=== PATIENT | female | born 1975 | race American Indian/Alaskan Native ===

== ENCOUNTER 2017-05-26 12:25 | Emergency (ER) | payer OTHER ==
[~2017-05-26] VITALS: Ht 165.1 cm; Wt 108.9 kg
[~2017-05-26 12:25] MED LIST: ACETAMINOPHEN325 M1 PO; ALBUTEROL SULF8.5 GM INH; ALBUTEROL2.5 MG/3 M INH; AMITRIPTYLINE H50 MG PO; AMITRIPTYLINE H75 MG PO; AMITRIPTYLINE100 MG PO; AMOXICILLIN500 MG PO; ATIVAN0.5 MG PO; BACTRIM DS TAB1 EACH PO; BUPRENORPHIN-N1 EACH SL; CIPRO500 MG PO; COZAAR100 MG PO; COZAAR25 MG PO; DICLOFENAC SODI50 MG PO; FISH OIL500 MG PO; GABAPENTIN300 MG PO; GLUCOPHAGE XR500 MG PO; GUIATUSS DM SY473 ML PO; HYDROCODON-ACE1 EAC8 PO; IBUPROFEN600 MG PO; IBUPROFEN800 MG PO; LEVAQUIN750 MG PO; LIDODERM700 MG TP; MEDROL4 M1 PO; NAPROXEN500 MG PO; NORCO 10-325 T1 EACH PO; NORCO 5-325 TA1 EACH PO; OMEPRAZOLE20 M1 PO; OMEPRAZOLE20 MG; OMEPRAZOLE20 MG PO; OXYCODONE HCL5 MG PO; PERCOCET 10-321 EACH PO; PERCOCET 7.5-31 EACH PO; PREDNISONE20 MG PO; PRENATAL CAPSU1 EACH PO; SOMA350 MG PO; VALIUM5 MG PO; ZOLOFT100 MG PO
== END 2017-05-26 18:00 | disposition left against medical advice (07) ==
LOC: ED 12:25
DX: M54.5 Low back pain (principal); L02.01 Cutaneous abscess of face; E11.9 Type 2 diabetes mellitus without complications; I10 Essential (primary) hypertension; F17.200 Nicotine dependence, unspecified, uncomplicated; Z90.49 Acquired absence of other specified parts of digestive tract; Z98.51 Tubal ligation status; Z88.5 Allergy status to narcotic agent; Z88.1 Allergy status to other antibiotic agents; Z88.8 Allergy status to other drugs, medicaments and biological substances; Z79.899 Other long term (current) drug therapy
CPT/HCPCS: 36415; 72158; 80053; 85025; 85651; 86140; 96361; 96374; 99284; A9579; J1170; J7040

== ENCOUNTER 2017-05-28 22:52 | Emergency (ER) | payer OTHER ==
[~2017-05-28] VITALS: Ht 165.1 cm; Wt 117.9 kg
[2017-05-28] MEDS ORDERED: NAPROXEN500 MG PO (23:33)
[2017-05-28] MEDS ORDERED: IBUPROFEN800 MG PO (23:34)
[2017-05-28] MEDS ORDERED: XANAX1 MG PO (23:35)
[2017-05-29] MEDS ORDERED: SOMA350 MG PO (03:04)
[2017-05-29] MEDS ORDERED: BACTRIM DS TAB1 EACH PO (03:04)
[2017-05-30] MEDS ORDERED: 8 HOUR650 MG PO (12:14)
[2017-05-30] MEDS ORDERED: ZITHROMAX500 MG PO (12:28)
== END 2017-05-29 03:11 | disposition home or self-care (01) ==
LOC: ED 22:52
DX: L03.113 Cellulitis of right upper limb (principal); E11.9 Type 2 diabetes mellitus without complications; I10 Essential (primary) hypertension; J44.9 Chronic obstructive pulmonary disease, unspecified; F17.200 Nicotine dependence, unspecified, uncomplicated; Z98.890 Other specified postprocedural states; Z88.1 Allergy status to other antibiotic agents; Z88.5 Allergy status to narcotic agent; Z88.8 Allergy status to other drugs, medicaments and biological substances; Z79.899 Other long term (current) drug therapy
CPT/HCPCS: 80053; 81001; 83605; 85025; 87040; 87088; 96361; 96365; 96375; 99283; J1885; J3370; J7030

== ENCOUNTER 2017-05-30 12:00 | Emergency (ER) | payer OTHER ==
[~2017-05-30] VITALS: Ht 165.1 cm; Wt 117.9 kg
[~2017-05-30 12:00] MED LIST changes: +XANAX1 MG PO
[2017-05-30] MEDS ORDERED: 8 HOUR650 MG PO (12:14)
[2017-05-30] MEDS ORDERED: ZITHROMAX500 MG PO (12:28)
== END 2017-05-30 12:36 | disposition home or self-care (01) ==
LOC: ED 12:00
DX: L03.113 Cellulitis of right upper limb (principal); F17.200 Nicotine dependence, unspecified, uncomplicated; I10 Essential (primary) hypertension; E11.9 Type 2 diabetes mellitus without complications; E66.9 Obesity, unspecified; Z88.1 Allergy status to other antibiotic agents; Z88.5 Allergy status to narcotic agent; Z88.8 Allergy status to other drugs, medicaments and biological substances; Z79.899 Other long term (current) drug therapy
CPT/HCPCS: 99283

== ENCOUNTER 2017-06-17 14:46 | Observation (INO) | payer OTHER ==
[~2017-06-17] VITALS: Ht 165.1 cm; Wt 123.0 kg
[~2017-06-17 14:46] MED LIST changes: +8 HOUR650 MG PO; +ZITHROMAX500 MG PO
--- NOTE | 2017-06-17 20:15 | NUR ---
PT ADMITTED TO ICU ROOM 128 AMITTED FOR NARCOTIC OVERDOSE. SLEEPING ON ARRIVAL, AWAKENS TO VERBAL STIMULI, UP TO BSC AND VOIDS 900ML URINE, VERY DROWSY, SLEEPING ON COMMODE. THEN GETS INTO BED, STEADY ON FEET. AWAKE, ANSWERS QUESTIONS APPROPRIATELY, NODS HEAD YES WHEN ASKED IF SHE HAD DONE SOME HEROIN. NARCAN DRIP INFUSING INTO LEFT LOWER LEG AT 0.1MG/HR. PT REQUESTING FOOD AND DRINK, INFORMED HER OF NPO STATUS. PT INSTANTLY BACK TO SLEEP ONCE SHE LIES BACK IN BED RR 18, SPO2 91% ON ROOM AIR. HR 80S. BED RAILS UP X4, PT IN VIEW OF NURSES STATION, WILL CONTINUE TO MONITOR.
--- NOTE | 2017-06-17 20:31 | EKG ---
[facility] [address] [facility] [place] [address] Signed Normal sinus rhythm Normal ECG Confirmed by MIRIAM JACK MD ([id number]) on 06/17/2017 8:31:35 PM Electronically Signed By: MIRIAM JACK MD 06/17/172030 PATIENT NAME: GABY STEWART Electrocardiogram DATE OF : 75 PHYSICIAN: MIRIAM JACK MD REPORT #: [id number] REPORT IS CONFIDENTIAL AND NOT TO BE RELEASED WITHOUT AUTHORIZATION
--- NOTE | 2017-06-17 20:44 | NUR ---
DR JACK IN UNIT TO CHECK ON PATIENT. PT REMAINS SLEEPING AT THIS TIME, RR 19.
--- NOTE | 2017-06-17 21:00 | NUR ---
PT AWAKENS TO VERBAL STIMULI, PLAN FOR CENTRAL LINE EXPLAINED TO PT, PT AGREES. DR MURGUIA IN UNIT TO SEE PT AND PLACE CENTRAL LINE DUE TO LIMITED VEIN STATUS. IVF AND NARCAN DRIP CONTINUE TO INFUSE THROUGH LEFT FOOT IV.
--- NOTE | 2017-06-17 22:03 | NUR ---
CENTRAL LINE IN AND PLACEMENT CONFIRMED WITH XRAY. PT STILL VERY SOMNOLENT, HAD TO APPLY OXYGEN AT 2L FOR SPO2 88%.
--- NOTE | 2017-06-17 22:10 | NUR ---
DR JACK UPDATED REGARDING BLOOD SUGAR AND BLOOD PRESSURES. ORDER GIVEN TO SWITCH FLUID TO D5LR. WILL CONTINUE TO MONITOR BLOOD PRESSURES FOR NOW.
--- NOTE | 2017-06-17 22:30 | NUR ---
ATTEMPTED TO PLACE [facility] BUT PT REFUSED.
--- NOTE | 2017-06-17 23:29 | NUR ---
PT UP TO BSC TO VOID 400ML, VERY DROWSY BUT ABLE TO TALK IN SENTENCES. DENIES PAIN. REQUESTS EATING/DRINKING. BACK TO BED, QUICKLY BACK TO SLEEP.RR 11, SPO2 95% ON 2L/O2. HR 72.
--- NOTE | 2017-06-18 02:00 | NUR ---
ATTEMPTED TO PLACE [facility], PT REFUSES. BACK TO SLEEP.
--- NOTE | 2017-06-18 03:00 | NUR ---
PT CONTINUES TO SLEEP, HR IN THE 60S. MOVING SELF IN BED OCCASIONALLY.
--- NOTE | 2017-06-18 03:15 | NUR ---
DR JACK UPDATED REGARDING LOW BLOOD PRESSURES. 1L NS BOLUS STARTED, WILL START LEVOPHED DRIP IF THEY CONTINUE TO BE LOW. PT UP TO VOID 500ML INTO BSC, STILL VERY DROWSY, SLEEPING ON COMMODE, A LITTLE UNSTEADY ON HER FEET. C/O OF SOME PAIN IN HER LOWER LEG AT I0 SITE. QUICKLY BACK TO SLEEP. SIDE RAILS UP.
--- NOTE | 2017-06-18 04:38 | NUR ---
BLOOD PRESSURES HAVE COME UP SINCE BOLUS GIVEN. LAST BP 115/87 MAP 93. PT STILL VERY DROWSY.
--- NOTE | 2017-06-18 06:26 | NUR ---
PT CALLS TO HAVE BLINDS LOWERED, THEN BACK TO SLEEP. LABS DRAWN FROM CENTRAL LINE.
--- NOTE | 2017-06-18 08:13 | NUR ---
PT AWAKENS WHEN SPOKEN TO, BUT GOES BACK TO SLEEP. PT STATES "I WANT SOMETHING TO DRINK". THEN PT CIRO BACK TO SLEEP. PT COOPERATIVE WITH HOSPITAL ROUTINE AT THIS TIME.
--- NOTE | 2017-06-18 09:20 | NUR ---
DR JACK INTO SEE PT AT THIS TIME, NEW ORDERS RECEIVED, NARCAN DRIP OFF AT THIS TIME, IN ABOUT A HOUR PT MAY TRY TO EAT AND HAVE WATER TO DRINK.
--- NOTE | 2017-06-18 11:30 | NUR ---
PT AWAKE TALKING ON PHONE, SHE ORDERED HER OWN FOOD. PT IS WANTING TO GO HOME.
--- NOTE | 2017-06-18 11:46 | NUR ---
PT UP TO BEDSIDE COMMODE VOIDED AND NOW SITTING ON THE EDGE OF THE BED. PT IS ASKING WHEN SHE CAN GO HOME? EXPLAINED THAT SHE NEEDS TO EAT AND SEE HOW SHE IS DOING. PT IS ABLE TO GET OUT OF BED AND UP TO THE BEDSIDE COMMODE. SHE IS CURRENTLY WANTING LOTS OF CARBS TO EAT THIS TIME. POLE PEELING MACHINE OPERATOR HELPER IS PICKING BATTLES AND ALLOWING HER TO HAVE TWO BLUEBERRY MUFFINS. PT STATES SHE IS NOT LONGER TAKING DIABETIC MEDICATIONS DUE TO HER CBG'S HAVE BEEN WITHIN NORMAL LIMITS.
--- NOTE | 2017-06-18 12:12 | NUR ---
CALLED DR. JACK AND DISCUSSED PT WAITING TO GO HOME AFTER SHE EATS. STAFF WILL DC'D CENTRAL LINE AND DR JACK WILL PLACE DISCHARGE ORDERS IN THE COMPUTOR.
--- NOTE | 2017-06-18 12:45 | NUR ---
PT DISCHARGED TO HOME AT THIS TIME. PT VERY INPULSIVE AT THIS TIME VERY READY TO LEAVE, PT TAKEN TO THE FRONT VIA WC. ALL PERSONAL BELONGINGS GIVEN BACK TO PATIENT AT THIS TIME.
--- NOTE | 2017-07-02 10:25 | OR ---
[facility] [address] [place], [place] [address] Signed DATE OF SERVICE: 06/17/2017 PREOPERATIVE DIAGNOSIS: Presumed severe opiate overdose. Morbid obesity. Acute renal injury and dehydration. POSTOPERATIVE DIAGNOSIS: Presumed severe opiate overdose. Morbid obesity. Acute renal injury and dehydration. PROCEDURE: Left subclavian Arrow blue tip triple-lumen catheter central venous catheterization. SURGEON: Chloe Murguia MD. ANESTHESIA: Lidocaine 1%. INDICATION: This morbidly obese 41-year-old woman is admitted by Dr. Shetty after presentation to the emergency room for what appears to be a heroin overdose. She is known to have IV drug use and has very poor peripheral access. A small IV has been obtained of the left ankle but she is in the intensive care unit and is thought to need a Narcan drip. She has responded to Narcan but it is short lived and she remains rather profoundly sedated. The risks of bleeding, infection, pneumothorax and so forth were explained to the patient, who understands I believed to a reasonable degree of these risks and allows us to proceed with central catheterization. FINDINGS: Dark nonpulsatile blood was noted from the left subclavian vein on the 1st pass. The catheter was placed without problem and good function is noted. A postprocedure chest x-ray is pending. PROCEDURE: In the supine positio n, the patient's arms were placed at the side and left infraclavicular space prepared with a chlorhexidine solution and draped sterilely. A 1% lidocaine was injected in the infraclavicular space. Using the Seldinger technique, the left subclavian vein was easily accessed showing dark nonpulsatile blood. A flexible J-wire was passed down the needle. There was no sign of ectopy. Site was incised with an 11 blade and the blue dilator and an Arrow blue tip triple-lumen catheter previously flushed with heparinized saline. It was passed over the wire without problem. The wire Electronically Signed By: CHLOE MURGUIA MD 07/02/17 1025 PATIENT NAME: GABY STEWART OPERATIVE REPORT DATE OF : 75 PHYSICIAN: CHLOE MURGUIA MD REPORT #: [id number] REPORT IS CONFIDENTIAL AND NOT TO BE RELEASED WITHOUT AUTHORIZATION [facility] [address] [place] [id number] Signed was removed. Aspiration on the distal port showed dark nonpulsatile blood. The collar enclosed with the kit was used to secure the catheter to the skin as was an additional stitch of the winnie e collar of the device. A sorba view dressing was then applied. A postprocedure chest x-ray is pending. It is highly probable the catheter will be functional for the purpose at hand. MD MATTHEW Odonnell/Shimon /[id number] cc: Dexter Shetty Dr Electronically Signed By: CHLOE MURGUIA MD 07/02/17 1025 PATIENT NAME: GABY STEWART OPERATIVE REPORT DATE OF : 75 PHYSICIAN: CHLOE MURGUIA MD REPORT #: [id number] REPORT IS CONFIDENTIAL AND NOT TO BE RELEASED WITHOUT AUTHORIZATION
--- NOTE | 2017-07-02 10:25 | CONS ---
[facility] [address] [place], [place] [address] Signed DATE OF SERVICE: 06/17/2017 TIME: 9:00 p.m. REQUESTING PHYSICIAN: Dr. Dexter Shetty. REASON FOR CONSULTATION: Central venous access for Narcan drip. HISTORY: This morbidly obese 41-year-old [place] woman is well known to have longstanding IV drug problems. She was admitted with an acute narcotic overdose with resultant hypotension and respiratory failure as manifest by respiratory acidosis. Her tox screen showed an opiate positive finding, as well as positive tricyclic antidepressants, as well as benzodiazepines. She was given Narcan but effect lasted only 45 minutes or so. Frequent Narcan injections were required and on that basis, a Narcan drip is recommended. PAST MEDICAL HISTORY: Includes reflux disease, anxiety disorder, chronic insomnia, chronic pain syndrome, chronic anxiety, and type 2 diabetes mellitus. REVIEW OF SYSTEMS: She is unable to contribute to her review of systems due to her somnolence. PHYSICAL EXAMINATION: GENERAL: Morbidly obese [place] woman, who is lying supine in the intensive care unit. She does respond somewhat to questions. HEENT: Her pupils are somewhat small. NECK: Trachea is midline. There is no clavicular fracture apparent. CHEST: Shows diminished respiratory excursion. ABDOMEN: Markedly obese. EXTREMITIES: Markedly obese. LAB STUDIES: Show no evidence of thrombocytopenia with white count of 8.2, hematocrit of 36.0, platelets 166,000. Chem profile abnormal for elevated creatinine of 1.92, an ALT low at 3, globulin high at 3.6. TSH 1.70. ABG showed a pH of 7.30, CO2 of 49.4, O2 of 54, O2 saturation 87.5; this may have been a venous sample. Urinalysis showed a specific gravity of 1.009, white cells of 10, there are no urine cast, bacteria is 3+. ASSESSMENT: The patient has apparent opiate overdose for which continued administration of Narcan is anticipated. She rouses somewhat, remain somnolent. A central venous catheter is requested by Dr. Shetty, her driver's license reviewing officer for further management of intravenous fluids, as well as administration of Narcan and other medications as necessary. She currently has Electronically Signed By: CHLOE MURGUIA MD 07/02/17 1025 PATIENT NAME: GABY STEWART CONSULTATION DATE OF : 75 PHYSICIAN: CHLOE MURGUIA MD REPORT #: [id number] REPORT IS CONFIDENTIAL AND NOT TO BE RELEASED WITHOUT AUTHORIZATION [address] [address] Signed an IV, which is tenuous in the foot. She does not have peripheral access otherwise due to her drug problem. The risks of bleeding, infection, pneumothorax and so forth are well acknowledge by all parties. The patient was explained this and appears to understand to the degree she can. A left subclavian approach may be appropriate although right internal jugular approach would be considered as well though her neck is rather stubby and she is quite obese. We will attempt a central venous catheterization on that basis. MD MATTHEW Odonnell/Shimon /[id number] cc: Dr. Diogenes Reddy, WARP HAND Electronically Signed By: CHLOE MURGUIA MD 07/02/17 1025 PATIENT NAME: GABY STEWART CONSULTATION DATE OF : 75 PHYSICIAN: CHLOE MURGUIA MD REPORT #: [id number] REPORT IS CONFIDENTIAL AND NOT TO BE RELEASED WITHOUT AUTHORIZATION
== END 2017-06-18 12:45 | disposition home or self-care (01) ==
LOC: ED 14:46 → CCU 14:48 → ED 19:50 → CCU 06-18 12:45
PROVIDERS: ADMIT Internal Medicine
PROC: 02HV33Z Insertion of Infusion Device into Superior Vena Cava, Percutaneous Approach (ICD-10-PCS; principal; 2017-06-17)
DX: T40.601A Poisoning by unspecified narcotics, accidental (unintentional), initial encounter (principal); J96.01 Acute respiratory failure with hypoxia; N17.9 Acute kidney failure, unspecified; I95.2 Hypotension due to drugs; E11.9 Type 2 diabetes mellitus without complications; I10 Essential (primary) hypertension; F41.9 Anxiety disorder, unspecified; E66.9 Obesity, unspecified; F51.04 Psychophysiologic insomnia; J45.909 Unspecified asthma, uncomplicated; G89.4 Chronic pain syndrome; F11.10 Opioid abuse, uncomplicated; Z68.42 Body mass index [BMI] 45.0-49.9, adult; Z79.84 Long term (current) use of oral hypoglycemic drugs; Z79.1 Long term (current) use of non-steroidal anti-inflammatories (NSAID); Z79.899 Other long term (current) drug therapy; Z88.1 Allergy status to other antibiotic agents; Z88.5 Allergy status to narcotic agent; Z88.0 Allergy status to penicillin; Z88.8 Allergy status to other drugs, medicaments and biological substances
CPT/HCPCS: 36556; 71010; 80053; 80176; 81001; 82803; 84443; 84703; 85025; 93005; 93010; 96372; 99285; G0378; G0480; J1650; J2310; J7030; J7120

== ENCOUNTER 2017-07-04 18:54 | Emergency (ER) | payer OTHER ==
[~2017-07-04] VITALS: Ht 165.1 cm; Wt 117.9 kg
== END 2017-07-04 22:38 | disposition home or self-care (01) ==
LOC: ED 18:54
DX: T40.1X1A Poisoning by heroin, accidental (unintentional), initial encounter (principal); R06.00 Dyspnea, unspecified; E11.9 Type 2 diabetes mellitus without complications; I10 Essential (primary) hypertension; J44.9 Chronic obstructive pulmonary disease, unspecified; E66.9 Obesity, unspecified; Z88.1 Allergy status to other antibiotic agents; Z88.5 Allergy status to narcotic agent; Z88.8 Allergy status to other drugs, medicaments and biological substances; F17.200 Nicotine dependence, unspecified, uncomplicated; Z86.73 Personal history of transient ischemic attack (TIA), and cerebral infarction without residual deficits; Z79.899 Other long term (current) drug therapy
CPT/HCPCS: 51701; 80053; 85025; 96360; 96361; 99283; G0480; J7030

== ENCOUNTER 2017-09-02 18:41 | Emergency (ER) | payer OTHER ==
[~2017-09-02] VITALS: Ht 165.1 cm; Wt 117.9 kg
[2017-09-02] MEDS ORDERED: BACTRIM DS TAB1 EACH PO (19:20)
== END 2017-09-02 20:13 | disposition home or self-care (01) ==
LOC: ED 18:41
PROC: 0H9CXZZ Drainage of Left Upper Arm Skin, External Approach (ICD-10-PCS; principal; 2017-09-02)
PROC: 0H9BXZZ Drainage of Right Upper Arm Skin, External Approach (ICD-10-PCS; 2017-09-02)
DX: L02.414 Cutaneous abscess of left upper limb (principal); L02.413 Cutaneous abscess of right upper limb; F19.10 Other psychoactive substance abuse, uncomplicated; I10 Essential (primary) hypertension; E11.9 Type 2 diabetes mellitus without complications; E66.9 Obesity, unspecified; J44.9 Chronic obstructive pulmonary disease, unspecified; F17.200 Nicotine dependence, unspecified, uncomplicated; Z90.49 Acquired absence of other specified parts of digestive tract; Z90.89 Acquired absence of other organs; Z88.1 Allergy status to other antibiotic agents; Z88.5 Allergy status to narcotic agent; Z88.8 Allergy status to other drugs, medicaments and biological substances; Z79.899 Other long term (current) drug therapy
CPT/HCPCS: 10061; 87070; 87077; 87186; 96372; 99283; J1885

== ENCOUNTER 2017-10-10 14:35 | Emergency (ER) | payer OTHER ==
[~2017-10-10] VITALS: Ht 165.1 cm; Wt 117.9 kg
[2017-10-10] MEDS ORDERED: NORCO 5-325 TA1 EACH PO (15:07)
[2017-10-10] MEDS ORDERED: BACTRIM DS TAB1 EACH PO (15:07)
== END 2017-10-10 15:18 | disposition home or self-care (01) ==
LOC: ED 14:35
DX: L02.414 Cutaneous abscess of left upper limb (principal); B95.8 Unspecified staphylococcus as the cause of diseases classified elsewhere; E11.9 Type 2 diabetes mellitus without complications; I10 Essential (primary) hypertension; J44.9 Chronic obstructive pulmonary disease, unspecified; F17.200 Nicotine dependence, unspecified, uncomplicated; Z98.890 Other specified postprocedural states; Z88.1 Allergy status to other antibiotic agents; Z88.5 Allergy status to narcotic agent; Z88.8 Allergy status to other drugs, medicaments and biological substances; Z79.899 Other long term (current) drug therapy; E66.9 Obesity, unspecified; Z90.49 Acquired absence of other specified parts of digestive tract
CPT/HCPCS: 99283

== ENCOUNTER 2017-11-03 18:47 | Emergency (ER) | payer OTHER ==
[~2017-11-03] VITALS: Ht 165.1 cm; Wt 108.9 kg
[2017-11-03] MEDS ORDERED: DOXYCYCLINE HY100 MG PO (19:31)
== END 2017-11-03 19:45 | disposition home or self-care (01) ==
LOC: ED 18:47
DX: L02.414 Cutaneous abscess of left upper limb (principal); I10 Essential (primary) hypertension; E11.9 Type 2 diabetes mellitus without complications; F17.200 Nicotine dependence, unspecified, uncomplicated; Z88.1 Allergy status to other antibiotic agents; Z88.5 Allergy status to narcotic agent; Z88.8 Allergy status to other drugs, medicaments and biological substances; Z79.899 Other long term (current) drug therapy
CPT/HCPCS: 99283

== ENCOUNTER 2017-12-01 12:29 | Day surgery (SDC) | payer OTHER ==
[~2017-12-01] VITALS: Ht 165.1 cm; Wt 108.9 kg
[~2017-12-01 12:29] MED LIST changes: +DOXYCYCLINE HY100 MG PO
[2017-12-01] MEDS ORDERED: SOMA350 MG PO (14:45)
--- NOTE | 2017-12-01 19:05 | NUR ---
12/01/17 1905 [facility] 1835: DR. MURGUIA AT BEDSIDE TALKING WITH PATIENT. 1845: PATIENT TOLERATING WATER. 1850: PATIENT TRANSFERRED TO M/S FLOOR ROOM 125. REPORT GIVEN TO M/S RN.
--- NOTE | 2017-12-01 19:32 | NUR ---
PATIENT ARRIVED TO FLOOR VIA STRETCHER WITH PACU NURSE. PATIENT UP TO BATHROOM TO VOID. NO APPARENT DISTRESS.DRESSING IN UPPER LEFT ARM WITH SMALL SHADOWING. PATIENT SITTING IN BED AT THIS TIME EATING DINNER. CALL LIGHT IN REACH.
--- NOTE | 2017-12-01 20:35 | NUR ---
AT 1924 THIS RN ATTEMPTED TO ADMINISTED IV VANCO PER MD ORDERS. THE IV SITE IN THE RIGHT UPPER ARM WAS INFILTRATED AT THIS TIME. PATIENT REFUSED TO HAVE NEW IV PLACED AND REQUESTED TO LEAVE AT THIS TIME. RN ENCOURAGED THE PATIENT TO FOLLOW THROUGH WITH TREATMENT. PATIENT ATTEMPTED TO LEAVE THE MED-SURG UNIT AT THIS TIME. RN ENCOURAGED PATIENT TO RETURN TO HER ROOM, WHICH SHE DID. MD WAS CONTACTED AND AMA ORDERS AND PO ABX WERE RECIEVED VERBALLY. EMERSON MOULTON VERIFIED ORDERS USING READ-BACK METHOD. AMA PAPER WORK WAS FILLED OUT AND SIGNED BY PATIENT. REQUESTED PATIENT TO WAIT FOR DISCHARGE PAPER WORK TO BE COMPLETED. PATIENT LEFT THE FLOOR DURING THIS TIME. RN FOLLOWED PATIENT TO THE FRONT DOOR AND WAS ABLE TO GIVE HER DISCHARGE PAPER WORK AND EDUCATION PACKETS. PATIENT LEFT THE FLOOR AT 2024.
--- NOTE | 2017-12-02 12:40 | OR ---
[facility] [address] [place], [place] [address] Signed DATE OF OPERATION: 12/01/2017 SURGEON: Chloe Murguia MD PREOPERATIVE DIAGNOSES: 1. Left arm cellulitis and chronic abscess cavity. 2. Intravenous drug use (heroin). POSTOPERATIVE DIAGNOSES: 1. Left arm cellulitis and chronic abscess cavity. 2. Intravenous drug use (heroin). PROCEDURES: 1. Exam under anesthesia. 2. Incision and debridement and curettage of left arm chronic abscess cavity. 3. Placement of drain. ANESTHESIA: General LMA, Osiris Oreilly CRNA. INDICATION: This 42-year-old obese [place] woman has an unfortunate heroin addiction. She has been treated for several weeks through the emergency room in part from Dr. Eulalio Mantilla with oral antibiotics for a plaque-like process of the left lateral upper arm that was suggestive of cellulitis and not frankly fluctuant. She has had at least 3 weeks of antibiotics thus far. She presents again to the emergency room where she was evaluated once again by Dr. Mantilla and found to have cellulitic changes and dense firm skin. The patient has self-drained at least twice in her arm with stab incisions of her own purulent material. She does have ongoing IV heroin use. She is found on my examination to have findings highly consistent with chronic abscess cavity and associated cellulitis. An ultrasound was performed under the direction of Dr. Mantilla confirming an "abscess cavity." She understands the risks of bleeding, infection, nerve injury, failure to cure the problem, and so forth with exam under anesthesia as well as debridement and drainage. She understands and wishes to proceed. FINDINGS: Indeed doughy thick skin, which is dense and firm, was noted in the lateral upper left arm consistent with abscess cavity that was chronic. The fluid within the cavity was Electronically Signed By: CHLOE MURGUIA MD 12/02/17 1240 PATIENT NAME: GABY STEWART OPERATIVE REPORT DATE OF : 75 PHYSICIAN: CHLOE MURGUIA MD REPORT #: [id number] REPORT IS CONFIDENTIAL AND NOT TO BE RELEASED WITHOUT AUTHORIZATION [facility] [address] [place], [place] [address] Signed thin and not frankly purulent. Cultures were obtained nevertheless. There was definitely necrotic fatty tissue with calcific changes. Debridement of the abscess cavity with banjo curette was undertaken and a yellow vessel loop used for additional drainage. DESCRIPTION OF PROCEDURE: The patient was brought to the operating room, given general anesthetic by LMA technique. Sequential compression device stockings were used. Antibiotic therapy was underway already with oral antibiotics previously. The left arm was prepared with Betadine solution and draped sterilely. Photographs were taken. Palpation revealed a dense firm plaque-like abnormality of the left arm in the lateral aspect. Prior incision sites from the patient's own drainage procedure were noted. Stab incisions were made superiorly and inferiorly with a 15 blade and ultimately excision of a wedge of tissue in each area showing densely firm and somewhat calcific fatty tissue and skin tissue. Drainage with hemostat was undertaken verifying abscess cavities that had chronic inflammatory change and relatively thin serous fluid rather than thick purulence. No doubt chronic antibiotic therapy had walled off this area. Debridement was undertaken sharply and ultimately with banjo curette, demonstrating a grainy nodular density and firm abscess cavity. This was thoroughly debrided and products of debridement were suctioned free and passed for pathology. Irrigation was undertaken with bulb syringe and ultimately yellow vessel loop applied and secured. By this point, the edema and cellulitis of the arm were improved. This process represented a chronic abscess cavity, not a fresh abscess cavity as is often the case. No doubt this was related to her antibiotic therapy. Ultimately, sterile gauze was packed into the superior and inferior stab wounds to assist with hemostasis and an ABD pad was applied. She was ultimately extubated and transferred to the recovery room in good condition. Blood loss was about 25 mL in total. Chloe Murguia MD JM/MODL /[id number] Electronically Signed By: CHLOE MURGUIA MD 12/02/17 1240 PATIENT NAME: GABY STEWART OPERATIVE REPORT DATE OF : 75 PHYSICIAN: CHLOE MURGUIA MD REPORT #: [id number] REPORT IS CONFIDENTIAL AND NOT TO BE RELEASED WITHOUT AUTHORIZATION [facility] [address] [place], [place] [address] Signed cc: [facility] Dr. Eulalio Chavez. [facility] Electronically Signed By: CHLOE MURGUIA MD 12/02/17 1240 PATIENT NAME: GABY STEWART OPERATIVE REPORT DATE OF : 75 PHYSICIAN: CHLOE MURGUIA MD REPORT #: [id number] REPORT IS CONFIDENTIAL AND NOT TO BE RELEASED WITHOUT AUTHORIZATION
--- NOTE | 2017-12-02 12:40 | ER ---
[facility] [address] [place], [place] [address] Signed DATE OF SERVICE: 12/01/2017 PROBLEM: Persistent left arm infectious process. HISTORY: This 42-year-old woman is a long-standing chronic intravenous drug user with heroin. Her last use of heroin was yesterday. She says that her substance abuse problem is primarily related to her chronic pain problems, which include dental pain, back pain and various other pains. She also complains of pain of her left upper arm. She has been treated as an outpatient through the emergency room with several courses of antibiotics including Bactrim for what appeared to be a cellulitic process of the left upper lateral arm. She has numerous needle tracks from her IV drug problem and this likely was a site of similar such problem in the past. An ultrasound was performed in the workup from Dr. Mantilla today, which showed a subcutaneous abscess as described 7 cm x 4 cm in size. The patient says that her treatment for the infection with antibiotics previously was not entirely effective and she did self drainage of the area with 2 separate stab incisions egressing pus from the area previously. PAST MEDICAL HISTORY: Does include obesity as well as the IV drug problem as described. She denies any other particular problems, but she has a somewhat extensive allergy history that is enumerated in her notes. This includes cephalexin, amoxicillin, venlafaxine, morphine, and codeine, as well as lamotrigine, paroxetine, and tramadol. SOCIAL HISTORY: She is . She does have children. She is enrolled [employer] member. PHYSICAL EXAMINATION: GENERAL: Obese woman who does not look systemically toxic. Trachea is midline. CHEST: Clear. HEART: Regular. I detect no murmur. ABDOMEN: Obese, but soft and nontender. EXTREMITIES: Show multiple needle track lopez. Her left upper extremity in the humeral area shows a dense fibrotic and locally tender area about the size of my hand in total. There is an area cephalad and inferior that looks to have been an area of drainage in the Electronically Signed By: HAY MURGUIA MD 12/02/17 1240 PATIENT NAME: GABY STEWART EMERGENCY ROOM REPORT DATE OF : 75 PHYSICIAN: HAY MURGUIA MD REPORT #: [id number] REPORT IS CONFIDENTIAL AND NOT TO BE RELEASED WITHOUT AUTHORIZATION [facility] [address] [place], [place] [address] Signed past. There is some skin desquamation consistent with a retracted swelling in the area. The consistency of the findings are highly suggestive of chronic abscess. ASSESSMENT: Most likely, she has a chronic abscess of her arm for which open incision and drainage and debridement would be appropriate. A tunnel-like passage is most likely what was seen on the ultrasound for which debridement, irrigation and likely passage of a loop drain would be most effective. She has possibly problems with peripheral access for which a dedicated intravenous access will be necessary on a short-term basis. She does not have systemic toxicity, I believe drainage and oral antibiotics will likely be effective for her problem at this point. The risks of bleeding, infection, nerve injury, recurrent problems, and other unforeseen complications were reviewed with her in detail. She agrees to proceed. Hay Murguia MD JM/MODL /[id number] cc: [facility] Eulalio Mantilla MD Electronically Signed By: HAY MURGUIA MD 12/02/17 1240 PATIENT NAME: GABY STEWART EMERGENCY ROOM REPORT DATE OF : 75 PHYSICIAN: HAY MURGUIA MD REPORT #: [id number] REPORT IS CONFIDENTIAL AND NOT TO BE RELEASED WITHOUT AUTHORIZATION
== END 2017-12-01 20:25 | disposition left against medical advice (07) ==
LOC: ED 12:29 → DS 15:59 → MS 18:50 → DS 20:25
PROVIDERS: Surgery
PROC: 0JBP0ZZ Excision of Left Lower Leg Subcutaneous Tissue and Fascia, Open Approach (ICD-10-PCS; principal; 2017-12-01 17:00)
DX: L03.114 Cellulitis of left upper limb (principal); F17.210 Nicotine dependence, cigarettes, uncomplicated; Z98.890 Other specified postprocedural states; Z88.5 Allergy status to narcotic agent; Z88.8 Allergy status to other drugs, medicaments and biological substances
CPT/HCPCS: 00400; 76882; 84703; 85025; 87070; 87075; 87077; 87181; 87184; 87186; 87205; 88304; 99285; J1170; J1885; J2704; J3010; J3370; J7060; J7120

== ENCOUNTER 2018-02-13 15:54 | Emergency (ER) | payer OTHER ==
[~2018-02-13] VITALS: Ht 165.1 cm; Wt 108.9 kg
--- OUTSIDE RECORDS SUMMARY | ~2018-02-13 | XMS | Encounter Summary ---
Demographics + + + | Address | [address] | | | [place] [address] | + + + | Home Phone [...] + + + | Author | [facility] | + + + | Organization | [facility] | + + + | Address | Unknown | + + + | Phone | Unavailable | + + + Support + + +---------+ + | Name | Relationship | Address | Phone | + + +---------+ + | ERIBERTO STEWART | ECON | Unknown | | + + +---------+ + Care Team Providers + +------+ + | Care Yield Engineer Name | Role | Phone | [...] + + | 03/06/ | Telephone | [facility] | Eulalio Arevalo, | Care Coordination | | 2018 | | [place] | [address] | | | | | Neuro-Ophthalmology | [place], [place] | | | | | at [facility] [address] | [address] | | | | | [address] Mailcode: | [phone] | | | | | [facility] | | | | | | [facility], | | | | | | [address] | | | | | | [place], [place] | | | | | | [address] | | | | | | [phone] | | | +--------+ + + + [...] + +---------+ + | Alcohol Use | Drinks/We | oz/Week | Comments | | | ek | | | + + +---------+ + | No | | | | + + +---------+ + + + + | Sex Assigned at | Date Recorded | | | | + + + | Not on file | | + + + as of this encounter Plan of Treatment Not on fileas of this encounter Visit Diagnoses Not on filein this encounter"
--- OUTSIDE RECORDS SUMMARY | ~2018-02-13 | XMS | Clinical Summary ---
Demographics + + + | Address | [address] | | | [place] [address] | + + + | Home Phone [...] Phone | + + +---------+ + | MINTHORN, ERIBERTO | ECON | Unknown | | + + +---------+ + Care Team Providers + +------+ + | Care Franchise Business Consultant Name | Role | Phone | + +------+ + | Dennis Maddox | PP | | + +------+ + Source Comments [facility] is fully live on both [facility] and [facility] Allergies + + + + + + [...] + + + Current Medications + + + +---------+------+------+-------+ | Prescription | Sig. | Disp. | Refills | Star | End | Statu | | | | | | t | Date | s | | | | | | Date | | | + + + +---------+------+------+-------+ | losartan 100 mg | Take 100 mg by mouth | | | | | Activ | | Oral [...] Take 800 mg by mouth | | | | | Activ | | Oral Tablet | every eight hours | | | | | e | | | as needed. | | | | | | + + + +---------+------+------+-------+ | carisoprodol | Take 350 mg by mouth | | | | | Activ | | (SOMA) 350 mg Oral | three times daily | | | | | e | | Tablet | as needed. | | | | | | + + + +---------+------+------+-------+ | metFORMIN 500 mg | Take 500 mg by mouth | | | | | Activ | | Oral [...] cerebri | 09/05/2006 | + + + Encounters +--------+ + + + + | Date | Type | Specialty | Care Team | Description | +--------+ + + + + | 01/31/ | Telephone | | Eulalio Arevalo, | Care Coordination | | 2017 | | | MD | | +--------+ + + + + from Last 3 Months Family History + + +------+ + | Medical History | Relation | Name | Comments | + + +------+ + | Diabetes | | | grandmother | + + +------+ + + +------+--------+ [...] Pressure | 120/59 | 03/13/2013 7:00 PM PDT | + + + + | Pulse | 92 | 03/13/2013 6:15 PM PDT | + + + + | Temperature | 37 C (98.6 F) | 03/13/2013 11:48 AM PDT | + + + + | Respiratory Rate | 20 | 03/13/2013 6:15 PM PDT | + + + + | Oxygen Saturation | 89% | 03/13/2013 6:02 PM PDT | + + + + | Inhaled Oxygen | - | - | | Concentration | | | + + + + | Weight | 136.5 kg (301 lb) | 03/13/2013 11:48 AM PDT | + + + + | Height | 165.1 cm (5' 5") | 09/17/2011 11:02 AM PDT | + + + + | Body Mass Index | 50.09 | 03/13/2013 11:48 AM PDT | + + + + Plan of Treatment + + + + + | Health Maintenance | Due Date | Last Done | Comments | + + + + + | INFLUENZA VACCINE | | | | | (FLU SHOT) | 7 | | | + + + + + Results Not on filefrom Last 3 Months
--- OUTSIDE RECORDS SUMMARY | ~2018-02-13 | XMS | Clinical Summary ---
Demographics + + + | Address | [address] | | | [place] [address] | + + + | Home Phone | | + + + | Preferred Language | Unknown | + + + | Marital Status | | + + + | Uatsdin Affiliation | None | + + + | Race | White | + + + | Ethnic Group | Not or | + + + Author + + + | Author | [facility] | + + + | Organization | [facility] | + + + | Address | Unknown | + + + | Phone | Unavailable | + + + Care Team Providers + +------+ + | Care Mold Chipper Name | Role | Phone | + +------+ + PP | Unavailable | + +------+ + Allergies Not on File Current Medications Not on file Active Problems Not on file Social History + +-------+ +--------+------+ | Tobacco [...] on file | | + + + Plan of Treatment + + + + + | Health Maintenance | Due Date | Last Done | Comments | + + + + + | HIV Screening | | | | | | 0 | | | + + + + + | Tetanus | | | | | | 4 | | | + + + + + | Cervical Cancer | | | | | Screening | 6 | | | + + + + + | Breast Cancer | | | | | Screening | 5 | | | + + + + + | IMM Influenza (#1) | | | | | | 7 | | | + + + + + Results Not on filefrom Last 3 Months"
[2018-02-13] MEDS ORDERED: BUPRENORPHIN-N1 EACH SL (16:40)
== END 2018-02-13 17:50 | disposition left against medical advice (07) ==
LOC: ED 15:54
DX: R10.30 Lower abdominal pain, unspecified (principal); I10 Essential (primary) hypertension; E11.9 Type 2 diabetes mellitus without complications; E66.9 Obesity, unspecified; F17.200 Nicotine dependence, unspecified, uncomplicated; Z88.1 Allergy status to other antibiotic agents; Z88.5 Allergy status to narcotic agent; Z88.0 Allergy status to penicillin; Z88.8 Allergy status to other drugs, medicaments and biological substances; Z79.899 Other long term (current) drug therapy
CPT/HCPCS: 81001; 87491; 87591; 96372; 99283; J1630

== ENCOUNTER 2018-04-05 05:40 | Day surgery (SDC) | payer OTHER ==
[~2018-04-05] VITALS: Ht 165.1 cm; Wt 114.3 kg
--- NOTE | 2018-04-05 09:10 | NUR ---
04/05/18 0910 Anni Miller 0903-PATIENT ARRIVED TO PACU ON 10L MASK AWAKE O2 SAT 96%. PATIENT ENCOURAGED TO COUGH. 3 LAP SITES CDI BANDAIDS AND STERI STRIPS. RR EVEN. SR.
--- NOTE | 2018-04-05 10:01 | NUR ---
LE 0940 PT RETURNED FROM PACU WIDE AWAKE C/O ABD PAIN 05/07. WATER, APPLE JUICE AND SHERBERT GIVEN PER PT REQUEST. FAMILY AT BEDSIDE.
[2018-04-05] MEDS ORDERED: PERCOCET 5-3251 EACH PO (10:36)
[2018-04-05] MEDS ORDERED: IBUPROFEN800 MG PO (10:37)
[2018-04-05] MEDS ORDERED: ZOFRAN ODT4 MG PO (10:38)
--- NOTE | 2018-04-05 10:56 | NUR ---
PT IS ASLEEP UPON ENTERING THE ROOM. SHE HAS TO BE TAPPED/SHOOKEN TO WAKE HER UP. HER LUNCH HAS ARRIVED FROM THE [place]. SHE RATES HER PAIN A 6 OR 7 OUT OF 10, WITH DELAYED ANSWERS TO QUESTIONS. NO OTHER C/O'S AT THIS TIME. WILL REASSESS WITHIN THE HOUR.
--- NOTE | 2018-04-05 11:25 | NUR ---
PATIENT EATS 95% OF HER LUNCH AND ASKS FOR ICE CREAM. ICE CREAM IS GIVEN. FAMILY REMAINS @ BS.
--- NOTE | 2018-04-05 11:50 | NUR ---
UP TO BR VOIDS 200 RED URINE. CHANGED CLEMENT PAD.
--- NOTE | 2018-04-05 12:08 | NUR ---
LE 1140: PT IS ASSITED UP OOB TO THE BATHROOM. WHILE SITTING UP IN BED SHE COUGHS UP SOME BLOODY SPUTUM, PT IS EDUCATED THAT A LITTLE BLOOD IS NORMAL SINCE SHE HAD A TUBE IN HER THROAT. THE BLOOD WAS DARKER RED, WITH YELLOW SPUTUM MIXED IN IT.
--- NOTE | 2018-04-05 14:51 | NUR ---
PT RESTING IN BED ALERT AND ORIENTED. IV IN R ARM, RESTING ON TABLE WITH TOWELS AROUND. PT SOMEWHAT UNCOMFORTABLE, BUT SEEMS TO BE TOLERATING WELL. MAYBE A LITTLE TENSE, DEBRIEFED SOME-PT REQUESTED PRAYER. WILL CONTINUE TO FOLLOW NEEDED
[2018-04-06] MEDS ORDERED: ZITHROMAX250 MG PO (11:58)
[2018-04-06] MEDS ORDERED: TESSALON PERLE100 MG PO (11:58)
--- NOTE | 2018-04-18 08:40 | OR ---
[facility] [address] [facility] [place], [place] [address] Signed DATE OF OPERATION: 04/05/2018 SURGEON: Emma Bingham MD FAMILY DAY CARE PROVIDER: Yeison Brandt MD PREOPERATIVE DIAGNOSIS: Deep dyspareunia, pelvic pain, and morbid obesity. POSTOPERATIVE DIAGNOSIS: Deep dyspareunia, pelvic pain, and morbid obesity with mild pelvic endometriosis and mild pelvic adhesions and left ovarian cyst. PROCEDURE: Laparoscopy, lysis of adhesions, fulguration minimal pelvic endometriosis, removal left ovarian cyst ANESTHESIA: General ET. ESTIMATED BLOOD LOSS: Minimal. DRAINS: None. INDICATIONS AND FINDINGS: The patient is a 42-year-old female, 5, para 4, AB1, who is currently using a Mirena for control, who has been having abnormal pain and increased bleeding recently. She has also had dyspareunia. Ultrasound was normal and the IUD was appropriately placed. It was felt that she possibly did have some endometriosis and further evaluation was needed. At the time of surgery, exam under anesthesia was completely normal. At the time of laparoscopy, there was a hemorrhagic left ovarian cyst as well as some mild pelvic adhesions on the patient's left side where the tube was adherent to the pelvic sidewall. There was minimal pelvic endometriosis and a window in the posterior left cul-de-sac. A particular note; however, is the patient was a very difficult intubation secondary to body characteristics. This took quite a bit of time and effort to be able to intubate her. Electronically Signed By: EMMA BINGHAM MD 04/18/18 0840 PATIENT NAME: GABY STEWART OPERATIVE REPORT DATE OF : 75 REPORT #: [id number] PHYSICIAN: EMMA BINGHAM MD PCP: VIVIAN BRADY REPORT IS CONFIDENTIAL AND NOT TO BE RELEASED WITHOUT AUTHORIZATION [facility] [address] [place], [place] [address] Signed DESCRIPTION OF PROCEDURE: The patient was prepped and draped in the dorsal lithotomy position. A weighted speculum was placed and the cervix was visualized and grasped with a single-tooth tenaculum on the anterior lip. A Hulka clamp was then placed and the tenaculum and speculum were then removed. Attention was then directed above. The infraumbilical area was injected with 0.5% Marcaine plain. An incision was made with a knife and each layer was then serially elevated and incised until the fascia was opened and identified. Stay sutures were placed. The peritoneum was then opened bluntly. The Toni cannula was then placed and the balloon inflated within the abdominal cavity. Placement of the scope confirmed proper positioning. At this point, the pelvis really could not be seen well and secondary ports were placed in the lateral areas. These were slightly inferior to the umbilicus and fairly far laterally. It was impossible to transilluminate the abdomen given her obesity. These areas were injected with 0.5% Marcaine. Incision made with a knife and 5-mm ports were placed under direct vision. The balloons were inflated within the abdomen as well. The pelvis was then evaluated and the plan was made to proceed with treatment of the abnormalities noted. The LigaSure [place] device was used to lyse the adhesions of the left tube to the pelvic sidewall. The left ovarian cyst was also removed using the [place] device. This appeared to be a hemorrhagic cyst and not endometriosis. The ovary otherwise appeared normal. The right ovary appeared normal as well. Inspection of the posterior cul-de-sac revealed a single area of endometriosis within a window, just lateral to the left uterosacral ligament, but below the ureteral area. This was attempted to be treated with the Dolphin tip forceps, but during this, the lesion was removed. It was bleeding superficially from that area and this was treated with a spatula tip cautery just with touch. The base of the left ovarian cyst was also cauterized to control bleeding. The abdomen was then copiously irrigated and inspected and there was no evidence of other lesions. It should also be noted that there was shunt tubing within the abdomen, which was not in the pelvis at all and had no adhesions to anything. Evicel was then used over the base of the left ovarian cyst as well as in the cul-de-sac to aid in hemostasis. The procedure was then terminated. The instruments were removed from the abdomen after allowing as much CO2 as possible to escape and deflating the balloons. The fascia of the umbilicus was identified and closed with a running suture of 0-Vicryl. The skin incisions were closed with subcuticular sutures of 3-0 Vicryl repeated. The instruments were removed from the vagina and there was no evidence of any bleeding from the tenaculum site. The patient was taken to the recovery room in good condition. Emma Bingham MD Electronically Signed By: EMMA BINGHAM MD 04/18/18 0840 PATIENT NAME: GABY STEWART OPERATIVE REPORT DATE OF : 75 REPORT #: [id number] PHYSICIAN: EMMA BINGHAM MD PCP: VIVIAN BRADY REPORT IS CONFIDENTIAL AND NOT TO BE RELEASED WITHOUT AUTHORIZATION [address] [place] [address] Signed KIM/TABITHA /[id number] cc: Yeison Brandt MD [facility] Copies: YEISON BRANDT MD ~ Electronically Signed By: EMMA BINGHAM MD 04/18/18 0840 PATIENT NAME: GABY STEWART OPERATIVE REPORT DATE OF : 75 REPORT #: [id number] PHYSICIAN: EMMA BINGHAM MD PCP: VIVIAN BRADY REPORT IS CONFIDENTIAL AND NOT TO BE RELEASED WITHOUT AUTHORIZATION
== END 2018-04-05 12:00 | disposition home or self-care (01) ==
LOC: DS 05:40
PROVIDERS: Obstetrics & Gynecology
PROC: 0U514ZZ Destruction of Left Ovary, Percutaneous Endoscopic Approach (ICD-10-PCS; principal; 2018-04-05 06:45)
DX: N83.202 Unspecified ovarian cyst, left side (principal); N80.3 Endometriosis of pelvic peritoneum; N94.12 Deep dyspareunia; K21.9 Gastro-esophageal reflux disease without esophagitis; G47.33 Obstructive sleep apnea (adult) (pediatric); I10 Essential (primary) hypertension; E66.01 Morbid (severe) obesity due to excess calories; B18.2 Chronic viral hepatitis C; G93.2 Benign intracranial hypertension; F17.210 Nicotine dependence, cigarettes, uncomplicated; Z88.5 Allergy status to narcotic agent; Z88.1 Allergy status to other antibiotic agents; Z88.8 Allergy status to other drugs, medicaments and biological substances; Z68.41 Body mass index [BMI] 40.0-44.9, adult; Z79.1 Long term (current) use of non-steroidal anti-inflammatories (NSAID); Z79.899 Other long term (current) drug therapy
CPT/HCPCS: 00840; J0330; J1100; J1644; J1885; J2250; J2405; J2704; J2710; J2765; J3010; J7120

== ENCOUNTER 2018-04-06 11:08 | Emergency (ER) | payer OTHER ==
[~2018-04-06] VITALS: Ht 165.1 cm; Wt 114.3 kg
[~2018-04-06 11:08] MED LIST changes: +PERCOCET 5-3251 EACH PO; +ZOFRAN ODT4 MG PO
[2018-04-06] MEDS ORDERED: TESSALON PERLE100 MG PO (11:58)
[2018-04-06] MEDS ORDERED: ZITHROMAX250 MG PO (11:58)
== END 2018-04-06 12:27 | disposition home or self-care (01) ==
LOC: ED 11:08
DX: J40 Bronchitis, not specified as acute or chronic (principal); E11.9 Type 2 diabetes mellitus without complications; I10 Essential (primary) hypertension; E66.9 Obesity, unspecified; J44.9 Chronic obstructive pulmonary disease, unspecified; F17.200 Nicotine dependence, unspecified, uncomplicated; Z88.1 Allergy status to other antibiotic agents; Z88.5 Allergy status to narcotic agent; Z88.8 Allergy status to other drugs, medicaments and biological substances; Z88.0 Allergy status to penicillin; Z79.899 Other long term (current) drug therapy
CPT/HCPCS: 99283

== ENCOUNTER 2018-05-06 14:47 | Emergency (ER) | payer OTHER ==
[~2018-05-06] VITALS: Ht 165.1 cm; Wt 114.3 kg
[~2018-05-06 14:47] MED LIST changes: +TESSALON PERLE100 MG PO; +ZITHROMAX250 MG PO
[2018-05-06] MEDS ORDERED: ZOFRAN ODT4 MG PO (17:31)
[2018-05-06] MEDS ORDERED: CIPRO500 MG PO (17:31)
== END 2018-05-06 17:41 | disposition home or self-care (01) ==
LOC: ED 14:47
DX: N39.0 Urinary tract infection, site not specified (principal); K52.9 Noninfective gastroenteritis and colitis, unspecified; E11.9 Type 2 diabetes mellitus without complications; I10 Essential (primary) hypertension; E66.9 Obesity, unspecified; J44.9 Chronic obstructive pulmonary disease, unspecified; Z88.1 Allergy status to other antibiotic agents; Z88.5 Allergy status to narcotic agent; Z88.8 Allergy status to other drugs, medicaments and biological substances; Z79.899 Other long term (current) drug therapy
CPT/HCPCS: 80053; 81001; 85025; 96361; 96374; 96375; 96376; 99283; J1885; J2405; J7120

== ENCOUNTER 2018-05-26 21:52 | Emergency (ER) | payer OTHER ==
[~2018-05-26] VITALS: Ht 165.1 cm; Wt 113.4 kg
--- NOTE | ~2018-05-26 | EKG ---
[facility] [address] [facility] [place], [place] [address] Draft EK completed, results pending confirmation PATIENT NAME: PATGABYERIC BOYER Electrocardiogram DATE OF : 75 PHYSICIAN: PRELIMINARY REPORT #: [id number] REPORT IS CONFIDENTIAL AND NOT TO BE RELEASED WITHOUT AUTHORIZATION
[2018-05-26] MEDS ORDERED: GLUCOPHAGE500 MG PO (22:09)
--- NOTE | 2018-05-27 11:33 | EKG ---
[facility] [address] [place], [place] [address] Signed Normal sinus rhythm Nonspecific ST abnormality When compared with ECG of 26-MAY-2018 21:56, (Unconfirmed) Otherwise similar to the previous EKG from 06/17/17. Confirmed by MIRIAM JACK MD ([id number]) on 05/27/2018 11:33:39 AM Electronically Signed By: MIRIAM JACK MD 05/27/18 1133 PATIENT NAME: GABY STEWART Electrocardiogram DATE OF : 75 PHYSICIAN: MIRIAM JACK MD REPORT #: [id number] REPORT IS CONFIDENTIAL AND NOT TO BE RELEASED WITHOUT AUTHORIZATION
== END 2018-05-27 02:26 | disposition home or self-care (01) ==
LOC: ED 21:52
DX: R07.89 Other chest pain (principal); E11.9 Type 2 diabetes mellitus without complications; I10 Essential (primary) hypertension; E66.9 Obesity, unspecified; J44.9 Chronic obstructive pulmonary disease, unspecified; F17.200 Nicotine dependence, unspecified, uncomplicated; Z88.1 Allergy status to other antibiotic agents; Z88.5 Allergy status to narcotic agent; Z88.8 Allergy status to other drugs, medicaments and biological substances; Z79.899 Other long term (current) drug therapy; Z79.84 Long term (current) use of oral hypoglycemic drugs
CPT/HCPCS: 36415; 71045; 80053; 84484; 85025; 93005; 93010; 99284

== ENCOUNTER 2018-12-04 14:07 | Emergency (ER) | payer OTHER ==
[~2018-12-04] VITALS: Ht 165.1 cm; Wt 113.4 kg
[~2018-12-04 14:07] MED LIST changes: +GLUCOPHAGE500 MG PO; +VENTOLIN HFA18 GM INH
--- OUTSIDE RECORDS SUMMARY | 2018-12-04 14:12 | XMS ---
PreManage Notification: GABY STEWART Security Ammonia Box Operator Events 1 event(s) in the past 18 months Most recent security events: Elopement at [facility] 02/13/2018 15:55 - Patient eloped before treatment completed. Details: AMA CRITERIA MET - Group Notification - [facility] - Has Care Guidelines CARE PROVIDERS VIVIAN BRADY Registered Nurse: [facility] 05/29/2018-Current MARCUS PHONE: [phone] RICHARD OLVERA Primary Care 05/28/2017-Current PHONE: [phone] orcandie Case or [employer] Business Manager Current PHONE: Unknown [facility] Other Current Orthopedic Surgery \T\ Fract[facility] PHONE: Unknown Guidelines Source: [facility] Guidelines Date: 06/09/2017 Care Coordination: ENCOURAGE PATIENT TO USE PCP FOR FOLLOW UP AND NON-EMERGENT PROBLEMS. GIVE PATIENT MICROBIOLOGICAL ANALYSTAVAYA ENGINEER INFORMATION FOR HELP AND QUESTIONS. 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 - Patient changes her phone number all the time and [facility] is unable to stay in contact with patient. - Patient will not engage with any services and or help offered by [facility] - Per [facility] ANY NON EMERGENT MEDICAL CONCERNS. - Patient can be seen by PCP same day if patient calls [facility] first thing in the morning. - Please refer patient to PCP office for all non emergent ED visits . - Patient does not utilize PCP office and should be referred to PCP office. Care Recommendation: This patient has had 5 or more Emergency Department visits in the last 12 months.\T\nbsp; Patient requires education on the scope and purpose of the ED as an acute care provider not a Primary Care Provider and should not be utilized for chronic conditions.\T\nbsp; If patient returns to ED please contact [facility] at [phone]. These are guidelines and the provider should exercise clinical judgment when providing care. Substance Use/Overdose 06/21/2017 [facility] HX: OPIOD OVERDOSES E.D. VISIT COUNT (12 MO.) [address] [facility]. TOTAL 7 NOTE: Visits indicate total known visits. ED/UCC VISIT TRACKING (12 MO.) 12/04/2018 14:08 [facility] TYPE: Emergency COMPLAINT: - HEAD PAIN,INJURY 09/04/2018 13:59 [facility] TYPE: Emergency COMPLAINT: - COUGH,ABD PAIN DIAGNOSES: - Noninfective gastroenteritis and colitis, unspecified - Unspecified abdominal pain - Bronchitis, not specified as acute or chronic - Viral infection, unspecified 06/23/2018 15:42 [facility] TYPE: Emergency COMPLAINT: - CHEST PAIN DIAGNOSES: - Essential (primary) hypertension - Other effects of heat and light, initial encounter - Allergy status to other antibiotic agents status - Allergy status to narcotic agent status - Other fci (current) drug therapy - snf (current) use of oral hypoglycemic drugs - Type 2 diabetes mellitus without complications - Chest pain, unspecified - Obesity, unspecified - Nicotine dependence, unspecified, uncomplicated - 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 MANAGER (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 ORAL HYPOGLYCEMIC DRUGS 05/26/2018 21:52 [facility] TYPE: Emergency COMPLAINT: - CHEST TIGHTNESS DIAGNOSES: - Essential (primary) hypertension - Allergy status to narcotic agent status - Type 2 diabetes mellitus without complications - Allergy status to other antibiotic agents status - snf (current) use of oral hypoglycemic drugs - Allergy status to other drugs, medicaments and biological substances status - Chronic obstructive pulmonary disease, unspecified - Nicotine dependence, unspecified, uncomplicated - PRISON (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 ORAL HYPOGLYCEMIC DRUGS - Other chest pain - Obesity, unspecified - Other fci (current) drug therapy 05/06/2018 14:48 [facility] TYPE: Emergency COMPLAINT: - VOMITING/DIARRHEA/ITCHING DIAGNOSES: - Chronic obstructive pulmonary disease, unspecified - Obesity, unspecified - Allergy status to other drugs, medicaments and biological substances status - Other fci (current) drug therapy - Nausea with vomiting, unspecified - Urinary tract infection, site not specified - Allergy status to narcotic agent status - Allergy status to other antibiotic agents status - Noninfective gastroenteritis and colitis, unspecified - Essential (primary) hypertension - Type 2 diabetes mellitus without complications 04/06/2018 11:09 [facility] TYPE: Emergency COMPLAINT: - POST OP PROBLEM DIAGNOSES: - Allergy status to penicillin - Other termite control technician (current) drug therapy - Allergy status to other antibiotic agents status - Obesity, unspecified - Allergy status to other drugs, medicaments and biological substances status - Type 2 diabetes mellitus without complications - Cough - Bronchitis, not specified as acute or chronic - Allergy status to narcotic agent status - Nicotine dependence, unspecified, uncomplicated - Essential (primary) hypertension - Chronic obstructive pulmonary disease, unspecified 02/13/2018 15:55 [facility] TYPE: Emergency COMPLAINT: - ABD PAIN DIAGNOSES: - Allergy status to penicillin - Other fci (current) drug therapy - Allergy status to narcotic agent status - Obesity, unspecified - Type 2 diabetes mellitus without complications - Essential (primary) hypertension - Nicotine dependence, unspecified, uncomplicated - Lower abdominal pain, unspecified - Allergy status to other drugs, medicaments and biological substances status - Allergy status to other antibiotic agents status INPATIENT VISIT TRACKING (12 MO.) No inpatient visits to display in this time frame [email or web address]
== END 2018-12-04 14:58 | disposition home or self-care (01) ==
LOC: ED 14:07
DX: S06.0X9A Concussion with loss of consciousness of unspecified duration, initial encounter (principal); L98.9 Disorder of the skin and subcutaneous tissue, unspecified; E11.9 Type 2 diabetes mellitus without complications; I10 Essential (primary) hypertension; E66.9 Obesity, unspecified; J44.9 Chronic obstructive pulmonary disease, unspecified; F17.200 Nicotine dependence, unspecified, uncomplicated; Z88.1 Allergy status to other antibiotic agents; Z88.5 Allergy status to narcotic agent; Z88.0 Allergy status to penicillin; Z88.8 Allergy status to other drugs, medicaments and biological substances; Z79.899 Other long term (current) drug therapy; W22.8XXA Striking against or struck by other objects, initial encounter
CPT/HCPCS: 99283

== ENCOUNTER 2019-04-13 11:50 | Day surgery (SDC) | payer OTHER ==
[~2019-04-13] VITALS: Ht 165.1 cm; Wt 115.7 kg
[~2019-04-13 11:50] MED LIST changes: +METFORMIN HCL500 MG PO; +SUBOXONE 8 MG-1 EAC1 SL
[2019-04-13] MEDS ORDERED: HYDROCODON-ACE1 EA10 PO (14:17)
--- NOTE | 2019-04-13 14:29 | NUR ---
04/13/19 1429 Amanda Vicente 1418- PT ARRIVES TO PACU ALERT AND ORIENTED. PT REPORTS NO PAIN. REPORTS HER FINGERS ARE NUMB AND TINGLING. CMS INTACT OTHERWISE. RESP EVEN AND UNLABORED. PT REPORTS, "I WAS HOPING YOU GUYS WOULD GIVE MY SOMETHING TO NOT CARE".
--- NOTE | 2019-04-16 07:08 | OR ---
[facility] [address] [place], [place] [address] Signed DATE OF OPERATION: 04/13/2019 SURGEON: Shravan Nickerson MD PREOPERATIVE DIAGNOSIS: Trigger thumb, right. POSTOPERATIVE DIAGNOSIS: Trigger thumb, right. PROCEDURE PERFORMED: Trigger thumb release, right. MIDDLE STITCHER: None. ANESTHESIA: [place] block. TOURNIQUET TIME: Approximately 20 minutes. BRIEF HISTORY: Annabelal is a 43-year-old female with locking in her thumb. She had tried splinting without substantial relief. Risks and benefits of operative treatment discussed with her. She elected to proceed. DESCRIPTION OF PROCEDURE: Once consent was obtained, she was taken to the operating room. After adequate anesthesia, she was placed on operating room table. Hand was prepped and draped in a standard sterile fashion. After checking for good anesthetic, the 1 cm incision was made overlying the proximal thumb crease, carried through skin and subcutaneous tissue carefully. The digital nerve was identified, dissected, retracted, and protected. The A1 anastasiia was then dissected under loupe magnification and released. The patient was asked to move her thumb. She had full excursion, both flexion and extension without any locking or triggering. Wound was copiously irrigated with antibiotic solution, closed with 3-0 nylon, and 3 mL 0.25% plain Marcaine was then infiltrated. The wound was dressed with bacitracin, Adaptic, 4 x 8, and gauze. She tolerated the procedure well. All sponge, needle, and instrument counts were correct. Electronically Signed By: SHRAVAN NICKERSON MD 04/16/19 0708 PATIENT NAME: ANNABELLA STEWART OPERATIVE REPORT DATE OF : 75 REPORT #: [id number] PHYSICIAN: SHRAVAN NICKERSON MD PCP: VIVIAN BRADY REPORT IS CONFIDENTIAL AND NOT TO BE RELEASED WITHOUT AUTHORIZATION [address] [address] Signed Shravan Nickerson MD /[facility] /[id number] Copies: ~ Electronically Signed By: SHRAVAN NICKERSON MD 04/16/19 0708 PATIENT NAME: ANNABELLA STEWART OPERATIVE REPORT DATE OF : 75 REPORT #: [id number] PHYSICIAN: SHRAVAN NICKERSON MD PCP: VIVIAN BRADY REPORT IS CONFIDENTIAL AND NOT TO BE RELEASED WITHOUT AUTHORIZATION
== END 2019-04-13 14:50 | disposition home or self-care (01) ==
LOC: OPS 11:50 → DS 11:50 → OPS 13:00
PROVIDERS: Specialist
PROC: 0LN70ZZ Release Right Hand Tendon, Open Approach (ICD-10-PCS; principal; 2019-04-13 13:00)
DX: M65.311 Trigger thumb, right thumb (principal); G47.30 Sleep apnea, unspecified; F40.240 Claustrophobia; M65.9 Synovitis and tenosynovitis, unspecified; I10 Essential (primary) hypertension; J44.9 Chronic obstructive pulmonary disease, unspecified; G47.33 Obstructive sleep apnea (adult) (pediatric); F41.9 Anxiety disorder, unspecified; F32.9 Major depressive disorder, single episode, unspecified; K21.9 Gastro-esophageal reflux disease without esophagitis; M54.9 Dorsalgia, unspecified; B19.20 Unspecified viral hepatitis C without hepatic coma; Z79.899 Other long term (current) drug therapy; Z79.84 Long term (current) use of oral hypoglycemic drugs; Z87.891 Personal history of nicotine dependence
CPT/HCPCS: 01810; J2250; J3490; J7120

== ENCOUNTER 2019-11-01 17:59 | Emergency (ER) | payer OTHER ==
[~2019-11-01] VITALS: Ht 165.1 cm; Wt 115.7 kg
--- OUTSIDE RECORDS SUMMARY | ~2019-11-01 | XMS | Encounter Summary ---
Demographics + + + | Address | [address] | | | [place] [address] | + + + | Home Phone | | + + + | Preferred Language | Unknown | + + + | Marital Status | | + + + | Judaism Affiliation | Unknown | + + + | Race | Unknown | + + + | Ethnic Group | Unknown | + + + Author + + + | Author | [facility] | | | and [place] | + + + | Organization | [facility] | | | and [place] [...] Team Providers + +------+ + | Care Radius Grinder Name | Role | Phone | + +------+ + PCP | Unavailable | + +------+ + Encounter Details +--------+ + + + + | Date | Type | Department | Care Team | Description | +--------+ + + + + | 10/10/ | Hospital | [facility] | | | | 1991 | Encounter | [facility] | | | | | | [facility] [address] | | | | | | [place], | | | | | | [place] [address] | | | | | | [phone] | | | +--------+ + + + [...]
--- OUTSIDE RECORDS SUMMARY | ~2019-11-01 | XMS | Encounter Summary ---
Demographics + + + | Address | [address] | | | [place] [address] | + + + | Home Phone | | + + + | Preferred Language | Unknown | + + + | Marital Status | | + + + | Anabaptist Affiliation | NON | + + + | Race | or | + + + | Ethnic Group | Not or | + + + Author + + + | Author | [place] [facility] | + + + | Organization | [facility] | + + + | Address | Unknown | + + + | Phone | Unavailable | + + + Support + + +---------+ + | Name | Relationship | Address | Phone | + + +---------+ + | Ruby Au | ECON | Unknown | | + + +---------+ + Care Team Providers + +------+ + | Care Bushel Girl Name | Role | Phone | + +------+ + | Dennis Mdadox | PCP | | + +------+ + Reason for Visit + + + | Reason | Comments | + + + | Visual field testing | | + + + Diagnostic Testing (Routine) +--------+--------+ + + + + | Status | Reason | Specialty | Diagnoses / | Referred By | Referred To | | | | | Procedures | Contact | Contact | +--------+--------+ + + + + | Closed | | Ophthalmology | | Non-[facility] | [facility] | | | | | | Epic Dept | [address] | | [address] | | | | | | | [address] | | | | | | | Mailcode: [facility] | | | | | | | [place], | | | | | | | [place] [address] | | | | | | | Phone: | | | | | | | [phone] | | | | | | | Fax: | | | | | | | [phone] | +--------+--------+ + + + + Encounter Details +--------+ + + + + | Date | Type | Department | Care Team | Description | +--------+ + + + + | 03/26/ | Procedure | [facility] | | Visual field testing | | 2012 | | [facility] | | | | | | [facility] at [facility] [address] | | | | [address] | | | | | | Mailcode: CH11P | | | | | | [facility] | | | | | | and [place], | | | | | | | | | | | | [place], [place] | | | | | | [address] | | | | | | [phone] | | | +--------+ + + + [...] + + documented as of this encounter Kenneth Burns - 03/26/2013 12:50 PM PDT Annabella Au was seen in the [facility] Department today, 2012, for 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 documented in this encounter Plan of Treatment Not on filedocumented as of this encounter Procedures + +--------+ + + + | Procedure Name | Priori | Date/Time | Associated Diagnosis | Comments | | | ty | | | | + +--------+ + + + | [place] VISUAL FIELD | Routin | 03/26/2013 | Visual field | | | EXAM,EXTENDED | e | 12:50 PM | defect, unspecified | | | | | PDT | | | + +--------+ + + + documented in this encounter Visit Diagnoses + + | Diagnosis | + + | Visual field defect, unspecified - Primary | + + documented in this encounter"
--- OUTSIDE RECORDS SUMMARY | ~2019-11-01 | XMS | Encounter Summary ---
Demographics + + + | Address | [address] | | | [place] [address] | + + + | Home Phone | | + + + | Preferred Language | Unknown | + + + | Marital Status | | + + + | Caodaism Affiliation | NON | + + + | Race | or | + + + | Ethnic Group | Not or | + + + Author + + + | Author | [place] [facility] | + + + | Organization | [facility] | + + + | Address | Unknown | + + + | Phone | Unavailable | + + + Support + + +---------+ + | Name | Relationship | Address | Phone | + + +---------+ + | Ruby Au | ECON | Unknown | | + + +---------+ + Care Team Providers + +------+ + | Care Business Development Manager Name | Role | Phone | + +------+ + | Yeison Simms MD | PCP | Unavailable | + +------+ + Encounter Details +--------+ + + + + | Date | Type | Department | Care Team | Description | +--------+ + + + + | 08/23/ | Telephone | Neurosurgery at | Kiki Rosen, | | | 2007 | | [facility] [address] | [place] | | | | | [place] Mailcode: CH8N | Neurosurgery [address] | | | | | [facility] | [address] | | | | | and Healing, | [place], [place] | | | | | [place] [address] | [address] | | | | | Floor [place], [place] | | | | | | [address] | | | | | | [phone] | | | +--------+ + + + [...]
--- OUTSIDE RECORDS SUMMARY | ~2019-11-01 | XMS | Encounter Summary ---
Demographics + + + | Address | [address] | | | [place] [address] | + + + | Home Phone | | + + + | Preferred Language | Unknown | + + + | Marital Status | | + + + | Rastafari Affiliation | NON | + + + | Race | or | + + + | Ethnic Group | Not or | + + + Author + + + | Author | [place] [facility] | + + + | Organization | [facility] | + + + | Address | Unknown | + + + | Phone | Unavailable | + + + Support + + +---------+ + | Name | Relationship | Address | Phone | + + +---------+ + | Ruby Au | ECON | Unknown | | + + +---------+ + Care Team Providers + +------+ + | Care Video And Sound Recorder Name | Role | Phone | + [...] + + | 08/24/ | Emergency | [facility] Emergency | Tylor Mcclellan, | | | 2010 | | Department [address] | [address] | | | | | [address] | [place], [address] | | | | | [facility] | [facility] | | | | | [place], [place] | [place], [place] | | | | | [address] | [address] | | | | | [phone] | [phone] | | | | | | | [...] us take care of you at [facility] today. Follow up with primary care physician [...] | | + +---------+ + + | [facility] DEPARTMENT OF | | | | | [...]
--- OUTSIDE RECORDS SUMMARY | ~2019-11-01 | XMS | Encounter Summary ---
Demographics + + + | Address | [address] | | | [place] [address] | + + + | Home Phone | | + + + | Preferred Language | Unknown | + + + | Marital Status | | + + + | Moravian Affiliation | NON | + + + | Race | or | + + + | Ethnic Group | Not or | + + + Author + + + | Author | [place] [facility] | + + + | Organization | [facility] | + + + | Address | Unknown | + + + | Phone | Unavailable | + + + Support + + +---------+ + | Name | Relationship | Address | Phone | + + +---------+ + | Ruby Au | ECON | Unknown | | + + +---------+ + Care Team Providers + +------+ + | Care Belt Lacer Name | Role | Phone | + [...] Rd | | | | | | [place], [place] | | | | | | [address] | | | +--------+ + + + [...]
--- OUTSIDE RECORDS SUMMARY | ~2019-11-01 | XMS | Encounter Summary ---
Demographics + + + | Address | [address] | | | [place] [address] | + + + | Home Phone | | + + + | Preferred Language | Unknown | + + + | Marital Status | | + + + | Alevism Affiliation | Unknown | + + + | Race | Unknown | + + + | Ethnic Group | Unknown | + + + Author + + + | Author | [facility] | | | and [place] | + + + | Organization | [facility] | | | and [place] [...] Team Providers + +------+ + | Care Cost Analyst Name | Role | Phone | + +------+ + PCP | Unavailable | + +------+ + Encounter Details +--------+ + + + + | Date | Type | Department | Care Team | Description | +--------+ + + + + | 08/21/ | Hospital | [facility] | | | | 1991 | Encounter | MED CTR EMERGENCY | | | | | | CENTER [address] | | | | | | [place] | | | | | | [address] | | | | | | [phone] | | | +--------+ + + + [...]
--- OUTSIDE RECORDS SUMMARY | ~2019-11-01 | XMS | Encounter Summary ---
Demographics + + + | Address | [address] | | | [place] [address] | + + + | Home Phone | | + + + | Preferred Language | Unknown | + + + | Marital Status | | + + + | Oriental Orthodox Affiliation | Unknown | + + + | Race | Unknown | + + + | Ethnic Group | Unknown | + + + Author + + + | Author | [facility] | | | and [place] | + + + | Organization | [facility] | | | and [...] Team Providers + +------+ + | Care Film Loader Name | Role | Phone | + +------+ + PCP | Unavailable | + +------+ + Encounter Details +--------+ + + + + | Date | Type | Department | Care Team | Description | +--------+ + + + + | 07/17/ | Hospital | [facility] | Domingo Darby, | | | 2010 | Encounter | HEART MED CTR | [address] | | | | | EMERGENCY CENTER | [place] [address] | | | | | [address] | [phone] | | | | | [place], [place] | | | | | | [address] | | | | | | [phone] | | | +--------+ + + + [...]
--- OUTSIDE RECORDS SUMMARY | ~2019-11-01 | XMS | Encounter Summary ---
Demographics + + + | Address | [address] | | | [place] [address] | + + + | Home Phone [...] + + | Author | [place] [facility] | + + + | Organization | [facility] [facility] [...] Team Providers + +------+ + | Care Health Education Teacher Name | Role | Phone | + [...] | | | | | | | [place], | | | | | | | [place] [address] | | | | | | | Phone: | | | | | | | [phone] | | | | | | | Fax: | | | | | | | [phone] | +--------+--------+ + + + + Encounter Details +--------+ + + + + | Date | Type | Department | Care Team | Description | +--------+ + + + + | 03/26/ | Procedure | [facility] | | Visual field testing | | 2012 | | [place] [facility] | | | | | | [facility] at [facility] [address] | | | | [address] | | | | | | Mailcode: CH11P | | | | | | [facility] | | | | | | and [place], | | | | | | | | | | | | [place], [place] | | | | | | [address] | | | | | | [phone] | | | +--------+ + + + [...] PDT Annabella Au was seen in the [facility] [place] [place] Department today, 2012, for 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 documented in this encounter Plan of Treatment Not on filedocumented as of this encounter Procedures + +--------+ + + + | Procedure Name | Priori | Date/Time | Associated Diagnosis | Comments | | | ty | | | | + +--------+ + + + | [place] VISUAL FIELD | Routin | 03/26/2013 | [...]
--- OUTSIDE RECORDS SUMMARY | ~2019-11-01 | XMS | Encounter Summary ---
Demographics + + + | Address | [address] | | | [place] [address] | + + + | Home Phone | | + + + | Preferred Language | Unknown | + + + | Marital Status | | + + + | Muslim Affiliation | NON | + + + | Race | or | + + + | Ethnic Group | Not or | + + + Author + + + | Author | [place] [employer] [facility] | + + + | Organization | [facility] [employer] [facility] | + + + | Address | Unknown | + + + | Phone | Unavailable | + + + Support + + +---------+ + | Name | Relationship | Address | Phone | + + +---------+ + | Ruby Au | ECON | Unknown | | + + +---------+ + Care Team Providers + +------+ + | Care Concrete Pourer Name | Role | Phone | + +------+ + | Brenden Benavides MD | PCP | | + +------+ + Reason for Visit + + + | Reason | Comments | + + + | Ultrasound procedure | | + + + Encounter Details +--------+---------+ + + + | Date | Type | Department | Care Team | Description | +--------+---------+ + + + | 11/30/ | Office | [facility] | Lefty Mcfarlane | Pseudotumor Cerebri | | 2006 | Visit | [facility] at | Bud Alexander MD [address] | (Primary Dx) | | | | Maicol Perez [facility] | [address] | | | | | [address] | [place], [place] | | | | | Mailcode: [facility] | [address] | | | | | [facility] [place] | [phone] | | | | | [address] | | | | | | [phone] | | | +--------+---------+ + + + [...] documented as of this encounter Progress Notes Baljinder Asif Waters - 11/30/2006 3:40 PM PSTChelseapilar Au was seen in the [facility] [...]
--- OUTSIDE RECORDS SUMMARY | ~2019-11-01 | XMS | Encounter Summary ---
Demographics + + + | Address | [address] | | | [place] [address] | + + + | Home Phone [...] + + + | Author | [place] [facility] [facility] | + + + | Organization | [facility] | + + + | Address | Unknown | + + + | Phone | Unavailable | + + + Support + + +---------+ + | Name | Relationship | Address | Phone | + + +---------+ + | Ruby Au | ECON | Unknown | | + + +---------+ + Care Team Providers + +------+ + | Care Systems Programmer Name | Role | Phone | + [...] Description | +--------+---------+ + + + | 07/01/ | Office | Neurosurgery at | Sam Pedroza MD | Pseudotumor Cerebri | | 2007 | Visit | [facility] [address] | [address] | (Primary Dx) | | | | Ave Mailcode: CH8N | [place], [place] | | | | | [facility] | [address] | | | | | and Healing, | [phone] | | | | | [facility] | | | | | | Floor [place], [place] | | | | | | [address] | | | | | | [phone] | | | +--------+---------+ + + + [...] + + + | Blood Pressure | 97/61 | 07/01/2008 3:05 PM | | | | | PDT | | + + + + + | Pulse | 106 | 07/01/2008 3:05 PM | | | | | PDT [...] + + + + | Weight | 112.5 kg (248 lb) | 07/01/2008 3:05 PM | | | | | PDT | | + + + + + | Height | - | - | | + + + + + | Body Mass Index | 41.27 | 05/07/2008 6:41 AM | | | | | PDT | | + + + + + documented in this encounter Progress Notes Sam Pedroza - 07/01/2008 3:27 PM PDT32 year old lady with pesudotumor cerebri is here to have some answers for her questions. She had venogram and angiogram which showed pressure gr aient on th etorcula and the jugular bulb. She was scheduled to have stent placement into th e stenotic sinus but insurance comp[any denied the payment. Sheasked several questions today regarding shunt placement and she wanted to have LP shunt instead of SIPHONER shunt because she d oes not weant her hair to be shaved. I will schedule her for lp shunt placemnt in next couple weeks. She agreed with this plan. Clinic time was more than 25 minutes and over half of it with the patient for coordination of the care and counseling. documented in this encounter Plan of Treatment Not on filedocumented as of this encounter Visit Diagnoses + + | Diagnosis | + + | Pseudotumor cerebri - Primary Benign intracranial hypertension | + + documented in this encounter"
--- OUTSIDE RECORDS SUMMARY | ~2019-11-01 | XMS | Encounter Summary ---
Demographics + + + | Address | [address] | | | [place] [address] | + + + | Home Phone | | + + + | Preferred Language | Unknown | + + + | Marital Status | | + + + | Orthodox Affiliation | NON | + + + | Race | or | + + + | Ethnic Group | Not or | + + + Author + + + | Author | [place] [facility] [facility] | + + + | Organization | [facility] | + [...] Team Providers + +------+ + | Care Director Of Curriculum And Instruction Name | Role | Phone | + +------+ + | Brenden Benavides MD | PCP | | + +------+ + Reason for Visit + + + | Reason | Comments | + + + | Vision disorder | Vision loss OS | + + + Encounter Details +--------+---------+ + + + | Date | Type | Department | Care Team | Description | +--------+---------+ + + + | 09/19/ | Office | [facility] | Brad Currie MD | Pseudotumor Cerebri; | | 2005 | Visit | [place] | | Common Migraine | | | | Neuro-Ophthalmology | | without Mention of | | | | [address] | | Intractable Migraine | | | | Blvd Mailcode: [place] | | | | | | Mailcode: [facility] | | | | | | [place], [place] | | | | | | [address] | | | | | | [phone] | | | +--------+---------+ + + + [...] documented as of this encounter Progress Notes Brad Currie - 09/19/2006 2:11 PM PDTFormatting of this note might be different from the o riginal. 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 she would note blackness in the upper left corner OS and she could not see through it. it was intermittent and would last 5-15 seconds. It was not provoked a nd specifically I pushed her on this. she had headaches that were present prior that were l ocated at the vertex and only intermittent. they got worse and she had to go to the ER to g et them under control. she says that they are more frequent even now. Vicodin helps her pa in as well as ibuprofen. she is not taking ibuprofen now because she is having another carp al tunnel release this coming week. She denies pulsatile tinnitus or other types of transie nt visual obscurations. she has lost 12 pounds recently. Current outpatient prescriptions: ACETAZOLAMIDE 250 MG TAB 2 tabs bid VICODIN 5 MG-500 MG TAB take 1 tablet by oral route every 4-6 hours as needed for pain IBUPROFEN 800 MG TAB 1 am and 1 nite Allergies: Codeine Rash Cephalexin Rash No past medical history on file. Significant head injury causing unconsciousness? no Past Surgical History: lumboperitoneal shunt 04/28/06 Comment: removed 05/30/06 MO FULL ROUT OBSTE CARE, DELIV HX CARPAL TUNNEL RELEASE HX TONSILLECTOMY HX APPENDECTOMY Toxic Exposures:no Special Diet: no Review of Systems: General: Fever: Negative Unintentional Weight Loss: Negative Skin: Negative Ear, Nose, Throat (sinus, cough): Negative Cardiovascular: Negative Pulmonary: Negative Gastrointestinal: Negative Genitourinary: Negative Muscle, Bones, Joints: Negative Neurological: Negative Psychiatric (depression, anxiety): Negative Allergic/Immunologic: Negative Family History: Macular Degeneration: No Retinitis Pigmentosa: No Strabismus or Lazy Eye: No Brain Tumors: No Stroke: No Brain Aneurysm: No Alzheimer's Disease: No Nerve or Muscle Disease: No Epilepsy or Seizures: No Migraine: No Multiple Sclerosis: No Social History: Ethnic Background: Patient Drives: no Tobacco Use: Yes 0.5 Packs/Day For 15 Years Alcohol Use: No General Appearance: Healthy, no apparent distress. Visual Acuity: Vasc Vacc VAph RE 20/20 20/- 20/- LE 20/20-2 20/- 20/- Color Vision: RE AOHRR 8.5/10 Ishihara -/8 LE AOHRR 8.5/10 Ishihara -/8 Amsler's Grid: RE normal LE normal Exophthalmometer: There was no proptosis present clinically. Lids: Normal EOM's: Fixation: normal Saccades: normal Pursuit: normal Convergence: normal Nystagmus: none Strabimus: no Pupils: RE LE Sluggish: no no RAPD: no no Dilation Lag: no no Size (mm) Dark: Size (mm) Light: Corneal Sensation: normal Slit lamp exam: RE LE Conjunctiva: clear clear Cornea: clear clear Anterior Chamber: deep and quiet deep and quiet Iris: normal normal Lens: clear clear Vitreous: clear clear Intraocular Pressure: RE: 18 mm Hg, LE: 18 mm Hg Confrontation VF: normal Visual Neglect: none Alert and Oriented x 3 Verbal Memory: grossly normal Speech normal?: yes Face normal?: Yes Strength normal?: yes Drift: no Fine Motor normal?: yes FNF normal?: yes Gait normal?: yes Fundi: Dilated Funduscopy revealed abnormal appearing nerves in a congenital fashion; they are also tilted . the blood vessels are anomalous as well. she has great bilateral venous pulsations. 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 Plan: I could not find any active disease today regarding pseudotumor cerebri. she has gr eat venous pulsations indicating that her intracranial pressure is currently normal. I woul d like to stop the Diamox and she is going to stop this today. She is going to have her brad rohit and then after that she will stop the Vicodin. I warned her that she would feel worse prior to feeling better and she is prepared for this. if she feels real terrible then I manasa l put her on Frova for about a week to help tide her over. After this, I suspect that her h eadaches will assume a more normal pattern. I am going to see her in 1 month to make sure t hat she does not develop papilledema again. I suspect that if she had intracranial hyperten ludwin that it would have disappeared with her weight loss. I see no indication for a surgica l procedure for pseudotumor today. Brad Currie MD Neuro-Ophthalmology and Cerebrovascular Disease Corporate Accounting Manager of Ophthalmology, Neurology, and Neurosurgery documented in this encounter Plan of Treatment + + +--------+ + + | Name | Type | Priori | Associated Diagnoses | Order Schedule | | | | ty | | | + + +--------+ + + | [place] VISUAL FIELD | Procedures | Routin | Pseudotumor | Ordered: 09/19/2006 | | EXAM,EXTENDED | | e | Cerebri Common | | | | | | Migraine without | | | | | | Mention of | | | | | | Intractable Migraine | | + + +--------+ + + documented as of this encounter Visit Diagnoses + + | Diagnosis | + + | Pseudotumor cerebri Benign intracranial hypertension | + + | Migraine without aura, without mention of intractable migraine without mention of | | status migrainosus | + + documented in this encounter"
--- OUTSIDE RECORDS SUMMARY | ~2019-11-01 | XMS | Encounter Summary ---
Demographics + + + | Address | [address] | | | [place] [address] | + + + | Home Phone | | + + + | Preferred Language | Unknown | + + + | Marital Status | | + + + | Taoism Affiliation | Unknown | + + + | Race | Unknown | + + + | Ethnic Group | Unknown | + + + Author + + + | Author | [facility] | | | and [place] | + + + | Organization | [facility] | | | and [place] [...] Team Providers + +------+ + | Care Roofing Layer Name | Role | Phone | + +------+ + PCP | Unavailable | + +------+ + Encounter Details +--------+ + + + + | Date | Type | Department | Care Team | Description | +--------+ + + + + | 03/29/ | Hospital | [facility] | | | | 2006 | Encounter | MED CTR XRAY [address] | | | | | [address] | | | | | | [place] [address] | | | | | | [phone] | | | +--------+ + + + [...]
--- OUTSIDE RECORDS SUMMARY | ~2019-11-01 | XMS | Encounter Summary ---
Demographics + + + | Address | [address] | | | [place] [address] | + + + | Home Phone [...] | Organization | [facility] | | | and [...] Team Providers + +------+ + | Care Sewing Line Baler Name | Role | Phone | + +------+ + PCP | Unavailable | + +------+ + Encounter Details +--------+ + + + + | Date | Type | Department | Care Team | Description | +--------+ + + + + | 04/21/ | Hospital | [facility] | | | | 1995 | Encounter | MED CTR EMERGENCY | | | | | | CENTER [address] | | | | | | [place] | | | | | | [address] | | | | | | [phone] | | | +--------+ + + + [...]
--- OUTSIDE RECORDS SUMMARY | ~2019-11-01 | XMS | Encounter Summary ---
Demographics + + + | Address | [address] | | | [place] [address] | + + + | Home Phone | | + + + | Preferred Language | Unknown | + + + | Marital Status | | + + + | Presybeterian Affiliation | NON | + + + | Race | or | + + + | Ethnic Group | Not or | + + + Author + + + | Author | [place] [facility] | + + + | Organization | [facility] [...] Team Providers + +------+ + | Care Voucher Examiner Name | Role | Phone | + +------+ + | Yeison Simms MD | PCP | Unavailable | + +------+ + Encounter Details +--------+ + + + + | Date | Type | Department | Care Team | Description | +--------+ + + + + | 05/26/ | Telephone | Neurosurgery at | Kiki Rosen, | | | 2008 | | [facility] [address] | [place] | | | | | [place] Mailcode: CH8N | Neurosurgery [address] | | | | | [facility] | [address] | | | | | and Healing, | [place], [place] | | | | | [place] [address] | [address] | | | | | Floor [place], [place] | | | | | | [address] | | | | | | [phone] | | | +--------+ + + + [...]
--- OUTSIDE RECORDS SUMMARY | ~2019-11-01 | XMS | Encounter Summary ---
Demographics + + + | Address | [address] | | | [place] [address] | + + + | Home Phone | | + + + | Preferred Language | Unknown | + + + | Marital Status | | + + + | Mandaen Affiliation | NON | + + + | Race | or | + + + | Ethnic Group | Not or | + + + Author + + + | Author | [place] [facility] [facility] | + + + | Organization | [facility] | + + + | Address | Unknown | + + + | Phone | Unavailable | + + + Support + + +---------+ + | Name | Relationship | Address | Phone | + + +---------+ + | Ruby Au | ECON | Unknown | | + + +---------+ + Care Team Providers + +------+ + | Care Oncology Social Worker Name | Role | Phone [...] | Headache | | 2005 | | [place]/Ophthalmol | MD Jordin | | | | | leon at [facility] [address] | | | | | | [address] Perez[address]iran Mailcode: | | | | | | CH11P [facility] | | | | | | Health and Healing, | | | | | | Building | | | | | | Floor [place], [place] | | | | | | [address] | | | | | | [phone] | | | +--------+ + + + [...]
--- OUTSIDE RECORDS SUMMARY | ~2019-11-01 | XMS | Encounter Summary ---
Demographics + + + | Address | [address] | | | [place] [address] | + + + | Home Phone | | + + + | Preferred Language | Unknown | + + + | Marital Status | | + + + | Baptism Affiliation | NON | + + + | Race | or | + + + | Ethnic Group | Not or | + + + Author + + + | Author | [place] [facility] | + + + | Organization | [facility] | + + + | Address | Unknown | + + + | Phone | Unavailable | + + + Support + + +---------+ + | Name | Relationship | Address | Phone | + + +---------+ + | Ruby Au | ECON | Unknown | | + + +---------+ + Care Team Providers + +------+ + | Care Premium Representative Name | Role | Phone | + +------+ + | Yeison Simms MD | PCP | Unavailable | + +------+ + Encounter Details +--------+ + + + + | Date | Type | Department | Care Team | Description | +--------+ + + + + | 08/23/ | Telephone | Neurosurgery at | Kiki Rosen, | | | 2007 | | [facility] [address] | [place] | | | | | [place] Mailcode: CH8N | Neurosurgery [address] | | | | | [facility] | [address] | | | | | and Healing, | [place], [place] | | | | | [place] [address] | [address] | | | | | Floor [place], [place] | | | | | | [address] | | | | | | [phone] | | | +--------+ + + + [...]
--- OUTSIDE RECORDS SUMMARY | ~2019-11-01 | XMS | Encounter Summary ---
Demographics + + + | Address | [address] | | | [place] [address] | + + + | Home Phone | | + + + | Preferred Language | Unknown | + + + | Marital Status | | + + + | Confucianism Affiliation | NON | + + + | Race | or | + + + | Ethnic Group | Not or | + + + Author + + + | Author | [place] [facility] [facility] | + + + | Organization | [facility] | + + + | Address | Unknown | + + + | Phone | Unavailable | + + + Support + + +---------+ + | Name | Relationship | Address | Phone | + + +---------+ + | Ruby Au | ECON | Unknown | | + + +---------+ + Care Team Providers + +------+ + | Care City Planner Name | Role | Phone | + [...] | [facility] | Eulalio Arevalo, | Headache | | 2014 | | [place] | [address] | | | | | Neuro-Ophthalmology | [facility] [place] | | | | | at [facility] [address] | [address] | | | | | Ave Mailcode: [facility] | [phone] | | | | | [facility] | | | | | | and Healing, | | | | | | Building | | | | | | Floor [place], [place] | | | | | | [address] | | | | | | [phone] | | | +--------+ + + + [...]
--- OUTSIDE RECORDS SUMMARY | ~2019-11-01 | XMS | Encounter Summary ---
Demographics + + + | Address | [address] | | | [place] [address] | + + + | Home Phone [...] Organization | [facility] | | | and [place] [...] Team Providers + +------+ + | Care Temporary Receptionist Name | Role | Phone | + +------+ + PCP | Unavailable | + +------+ + Encounter Details +--------+ + + + + | Date | Type | Department | Care Team | Description | +--------+ + + + + | 05/25/ | Hospital | [facility] | | | | 1991 | Encounter | MED CTR WOMENS | | | | | | HEALTH [address] | | | | | | [place], | | | | | | [place] [address] | | | | | | [phone] | | | +--------+ + + + [...]
--- OUTSIDE RECORDS SUMMARY | ~2019-11-01 | XMS | Encounter Summary ---
Demographics + + + | Address | [address] | | | [place] [address] | + + + | Home Phone [...] + + + | Author | [place] [facility] | + + + | Organization | [facility] | + + + | Address | Unknown | + + + | Phone | Unavailable | + + + Support + + +---------+ + | Name | Relationship | Address | Phone | + + +---------+ + | Ruby Au | ECON | Unknown | | + + +---------+ + Care Team Providers + +------+ + | Care Resource Agent Name | Role | Phone | + [...] | +--------+ + + + + | 03/11/ | Telephone | Neurosurgery at | Eladio Pang MD | Headache | | 2012 | | [facility] [address] | [address] | | | | | Ave Mailcode: CH8N | [place], [place] | | | | | [facility] | [address] | | | | | and [facility], | [phone] | | | | | [facility] | | | | | | Floor [place], [place] | | | | | | [address] | | | | | | [phone] | | | +--------+ + + + [...]
--- OUTSIDE RECORDS SUMMARY | ~2019-11-01 | XMS | Encounter Summary ---
Demographics + + + | Address | [address] | | | [place] [address] | + + + | Home Phone [...] + + | Author | [place] [facility] [facility] | + + + | Organization | [facility] | + + + | Address | Unknown | + + + | Phone | Unavailable | + + + Support + + +---------+ + | Name | Relationship | Address | Phone | + + +---------+ + | Ruby Au | ECON | Unknown | | + + +---------+ + Care Team Providers + +------+ + | Care Director Of Search Engine Marketing Name | Role | Phone | + +------+ + | Brenden Benavides MD | PCP | | + +------+ + Encounter Details +--------+ + + + + | Date | Type | Department | Care Team | Description | +--------+ + + + + | 09/28/ | Documentati | [facility] | Brad Currie MD | | | 2006 | on | [place] | | | | | | Neuro-Ophthalmology | | | | | | [address] | | | | | | [place] Mailcode: CEI | | | | | | Mailcode: PATTI | | | | | | [place], [place] | | | | | | [address] | | | | | | [phone] | | | +--------+ + + + [...]
--- OUTSIDE RECORDS SUMMARY | ~2019-11-01 | XMS | Encounter Summary ---
Demographics + + + | Address | [address] | | | [place] [address] | + + + | Home Phone [...] Organization | [facility] | | | and [...] Team Providers + +------+ + | Care Railroad Baggage Porter Name | Role | Phone | + +------+ + PCP | Unavailable | + +------+ + Encounter Details +--------+ + + + + | Date | Type | Department | Care Team | Description | +--------+ + + + + | 07/06/ | Hospital | [facility] | Mirna Lambert | | | 2007 | Encounter | MED CTR EMERGENCY | Bri Waters MD [address] | | | | | [address] | [facility] | | | | | [place] | [place] [address] | | | | | [address] | [phone] | | | | | [phone] | | | +--------+ + + + [...]
--- OUTSIDE RECORDS SUMMARY | ~2019-11-01 | XMS | Encounter Summary ---
Demographics + + + | Address | [address] | | | [place] [address] | + + + | Home Phone | | + + + | Preferred Language | Unknown | + + + | Marital Status | | + + + | Nondenominational Affiliation | NON | + + + | Race | or | + + + | Ethnic Group | Not or | + + + Author + + + | Author | [place] [employer] [facility] | + + + | Organization | [facility] [employer] [facility] | + + + | Address | Unknown | + + + | Phone | Unavailable | + + + Support + + +---------+ + | Name | Relationship | Address | Phone | + + +---------+ + | Ruby Au | ECON | Unknown | | + + +---------+ + Care Team Providers + +------+ + | Care Bin Tripper Operator Name | Role | Phone | [...] | | | Ave Mailcode: CH8N | [place], [place] | | | | | [facility] | [address] | | | | | and Healing, | [phone] | | | | | [facility] | | | | | | Floor [place], [place] | | | | | | [address] | | | | | | [phone] | | | +--------+ + + + [...]
--- OUTSIDE RECORDS SUMMARY | ~2019-11-01 | XMS | Encounter Summary ---
Demographics + + + | Address | [address] | | | [place] [address] | + + + | Home Phone [...] | Organization | [facility] [...] Team Providers + +------+ + | Care Printing Film Stripper Name | Role | Phone | + +------+ + PCP | Unavailable | + +------+ + Encounter Details +--------+ + + + + | Date | Type | Department | Care Team | Description | +--------+ + + + + | 09/20/ | Hospital | [facility] | | | | 1991 | Encounter | MED CTR [facility]OMENS | | | | | | HEALTH [address] | | | | | | [place], | | | | | | [place] [address] | | | | | | [phone] | | | +--------+ + + + [...]
--- OUTSIDE RECORDS SUMMARY | ~2019-11-01 | XMS | Encounter Summary ---
Demographics + + + | Address | [address] | | | [place] [address] | + + + | Home Phone | | + + + | Preferred Language | Unknown | + + + | Marital Status | | + + + | Yarsani Affiliation | Unknown | + + + | Race | Unknown | + + + | Ethnic Group | Unknown | + + + Author + + + | Author | [facility] | | | and [place] | + + + | Organization | [facility] | | | and [...] Providers + +------+ + | Care Metal Painter Name | Role | Phone | + +------+ + PCP | Unavailable | + +------+ + Encounter Details +--------+ + + + + | Date | Type | Department | Care Team | Description | +--------+ + + + + | 07/12/ | Hospital | [place] | Conversion | | | 2010 | Encounter | [facility] | Transaction, | | | | | EMERG[facility]Y CENTER | Provider Unknown | | | | | [address] | | | | | | [place] | (Fax) | | | | | [address] | | | | | | [phone] | | | +--------+ + + + [...]
--- OUTSIDE RECORDS SUMMARY | ~2019-11-01 | XMS | Encounter Summary ---
Demographics + + + | Address | [address] | | | [place] [address] | + + + | Home Phone | | + + + | Preferred Language | Unknown | + + + | Marital Status | | + + + | Gnosticist Affiliation | NON | + + + | Race | or | + + + | Ethnic Group | Not or | + + + Author + + + | Author | [place] [employer] [facility] | + + + | Organization | [facility] [facility] [...] Team Providers + +------+ + | Care Bricklayer Apprentice Name | Role | Phone | [...] + | 05/16/ | Telephone | Neurosurgery [address] | Sam Pedroza MD | Headache | | 2007 | | [facility] | [address] | | | | | Rd Mailcode: PV01 | [place], [place] | | | | | Physician's | [address] | | | | | [place], | [phone] | | | | | [place] [address] | | | | | | [phone] | | | +--------+ + + + [...]
--- OUTSIDE RECORDS SUMMARY | ~2019-11-01 | XMS | Encounter Summary ---
Demographics + + + | Address | [address] | | | [place] [address] | + + + | Home Phone | | + + + | Preferred Language | Unknown | + + + | Marital Status | | + + + | Methodist Affiliation | NON | + + + | Race | or | + + + | Ethnic Group | Not or | + + + Author + + + | Author | [place] [facility] | + + + | Organization | [facility] | + + + | Address | Unknown | + + + | Phone | Unavailable | + + + Support + + +---------+ + | Name | Relationship | Address | Phone | + + +---------+ + | Ruby Au | ECON | Unknown | | + + +---------+ + Care Team Providers + +------+ + | Care Bus Greaser Name | Role | Phone | + +------+ + | Brenden Benavides MD | PCP | | + +------+ + Encounter Details +--------+ + + + + | Date | Type | Department | Care Team | Description | +--------+ + + + + | 01/05/ | Telephone | [facility] | Brad Currie MD | | | 2006 | | [place] | | | | | | Neuro-Ophthalmology | | | | | | [address] | | | | | | [place] Mailcode: CEI | | | | | | Mailcode: CEI | | | | | | [place], [place] | | | | | | [address] | | | | | | [phone] | | | +--------+ + + + [...]
--- OUTSIDE RECORDS SUMMARY | ~2019-11-01 | XMS | Encounter Summary ---
Demographics + + + | Address | [address] | | | [place] [address] | + + + | Home Phone [...] | Organization | [facility] | | | and [place] [...] Team Providers + +------+ + | Care Company Laborer Name | Role | Phone | + +------+ + PCP | Unavailable | + +------+ + Encounter Details +--------+ + + + + | Date | Type | Department | Care Team | Description | +--------+ + + + + | 08/10/ | Hospital | [facility] | | | | 1990 | Encounter | MED CTR EMERGENCY | | | | | | CENTER [address] | | | | | | [place] | | | | | | [address] | | | | | | [phone] | | | +--------+ + + + [...]
--- OUTSIDE RECORDS SUMMARY | ~2019-11-01 | XMS | Encounter Summary ---
Demographics + + + | Address | [address] | | | [place] [address] | + + + | Home Phone [...] + + + | Author | [place] [facility] [facility] | + + + | Organization | [facility] | + + + | Address | Unknown | + + + | Phone | Unavailable | + + + Support + + +---------+ + | Name | Relationship | Address | Phone | + + +---------+ + | Ruby Au | ECON | Unknown | | + + +---------+ + Care Team Providers + +------+ + | Care Merchandising Execution Associate Name | Role | Phone | + [...] Refill Request | | 2006 | | [place] | [address] [facility] | | | | | Oculoplastics at | Rd [place], [place] | | | | | [address] | [address] | | | | | [address] | | | | | | Mailcode: CEI | | | | | | [place], [place] | | | | | | [address] | | | | | | [phone] | | | +--------+ + + + [...]
--- OUTSIDE RECORDS SUMMARY | ~2019-11-01 | XMS | Encounter Summary ---
Demographics + + + | Address | [address] | | | [place] [address] | + + + | Home Phone [...] + + + | Author | [place] [facility] [facility] | + + + | Organization | [facility] | + + + | Address | Unknown | + + + | Phone | Unavailable | + + + Support + + +---------+ + | Name | Relationship | Address | Phone | + + +---------+ + | Ruby Au | ECON | Unknown | | + + +---------+ + Care Team Providers + +------+ + | Care Land Degradation Analyst Name | Role | Phone | + +------+ + | Yeison Simms MD | PCP | Unavailable | + +------+ + Reason for Visit + + + | Reason | Comments | + + + | Postoperative | | | Questions | | + + + | Refill Encounters | | + + + Encounter Details +--------+ + + + + | Date | Type | Department | Care Team | Description | +--------+ + + + + | 08/14/ | Telephone | Neurosurgery at | Sam Pedroza MD | Postoperative | | 2008 | | [facility] [address] | [address] | Questions; Refill | | | | Ave Mailcode: CH8N | [place], [place] | Encounters | | | | [facility] | [address] | | | | | and [place], | [phone] | | | | | [facility] | | | | | | Floor [place], [place] | | | | | | [address] | | | | | | [phone] | | | +--------+ + + + [...]
--- OUTSIDE RECORDS SUMMARY | ~2019-11-01 | XMS | Encounter Summary ---
Demographics + + + | Address | [address] | | | [place] [address] | + + + | Home Phone | | + + + | Preferred Language | Unknown | + + + | Marital Status | | + + + | Latter-Day Affiliation | Unknown | + + + | Race | Unknown | + + + | Ethnic Group | Unknown | + + + Author + + + | Author | [facility] | | | and [place] | + + + | Organization | [facility] | | [...] Team Providers + +------+ + | Care Student Counsellor Name | Role | Phone | + +------+ + PCP | Unavailable | + +------+ + Encounter Details +--------+ + + + + | Date | Type | Department | Care Team | Description | +--------+ + + + + | 05/18/ | Hospital | [facility] | | | | 1991 | Encounter | MED CTR WOMENS | | | | | | HEALTH [address] | | | | | | [place], | | | | | | [place] [address] | | | | | | [phone] | | | +--------+ + + + [...]
--- OUTSIDE RECORDS SUMMARY | ~2019-11-01 | XMS | Encounter Summary ---
Demographics + + + | Address | [address] | | | [place] [address] | + + + | Home Phone | | + + + | Preferred Language | Unknown | + + + | Marital Status | | + + + | Orthodoxy Affiliation | NON | + + + | Race | or | + + + | Ethnic Group | Not or | + + + Author + + + | Author | [place] [employer] [facility] | + + + | Organization | [facility] | + + + | Address | Unknown | + + + | Phone | Unavailable | + + + Support + + +---------+ + | Name | Relationship | Address | Phone | + + +---------+ + | Ruby Au | ECON | Unknown | | + + +---------+ + Care Team Providers + +------+ + | Care Order Entry Specialist Name | Role | Phone | [...] + | 09/28/ | Telephone | Neurosurgery [address] | [address] | Other | | 2005 | | [address] | [address] | | | | | [place] Mailcode:OP14B | [place], | | | | | [facility] | [place] [address] | | | | | [place], [place] | | | | | | [address] | | | | | | [phone] | | | +--------+ + + + [...]
--- OUTSIDE RECORDS SUMMARY | ~2019-11-01 | XMS | Encounter Summary ---
Demographics + + + | Address | [address] | | | [place] [address] | + + + | Home Phone | | + + + | Preferred Language | Unknown | + + + | Marital Status | | + + + | Hoahaoism Affiliation | Unknown | + + + | Race | Unknown | + + + | Ethnic Group | Unknown | + + + Author + + + | Author | [facility] | | | and [place] | + + + | Organization | [facility] | | | and [place] [...] Team Providers + +------+ + | Care Fireworks Assembler Name | Role | Phone | + +------+ + PCP | Unavailable | + +------+ + Encounter Details +--------+ + + + + | Date | Type | Department | Care Team | Description | +--------+ + + + + | 04/18/ | Hospital | [facility] | | | | 1991 | Encounter | MED CTR EMERGENCY | | | | | | CENTER [address] | | | | | | [place] | | | | | | [address] | | | | | | [phone] | | | +--------+ + + + [...]
--- OUTSIDE RECORDS SUMMARY | ~2019-11-01 | XMS | Encounter Summary ---
Demographics + + + | Address | [address] | | | [place] [address] | + + + | Home Phone [...] | [facility] | | | and [...] + +------+ + | Care Director Of Event Sales Name | Role | Phone | + +------+ + PCP | Unavailable | + +------+ + Encounter Details +--------+ + + + + | Date | Type | Department | Care Team | Description | +--------+ + + + + | 10/29/ | Hospital | [facility] | | | | 1991 | Encounter | MED CTR EMERGENCY | | | | | | CENTER [address] | | | | | | [place] | | | | | | [address] | | | | | | [phone] | | | +--------+ + + + [...]
--- OUTSIDE RECORDS SUMMARY | ~2019-11-01 | XMS | Encounter Summary ---
Demographics + + + | Address | [address] | | | [place] [address] | + + + | Home Phone [...] + + + | Author | [place] [employer] [facility] | + + + | Organization | [facility] | + + + | Address | Unknown | + + + | Phone | Unavailable | + + + Support + + +---------+ + | Name | Relationship | Address | Phone | + + +---------+ + | Ruby Au | ECON | Unknown | | + + +---------+ + Care Team Providers + +------+ + | Care Blood Bank Worker Name | Role | Phone | + +------+ + | Yeison Simms MD | PCP | Unavailable | + +------+ + Encounter Details +--------+ + + + + | Date | Type | Department | Care Team | Description | +--------+ + + + + | 08/23/ | Telephone | Neurosurgery at | Kiki Rosen, | | | 2007 | | [facility] [address] | [place] | | | | | [place] Mailcode: CH8N | Neurosurgery [address] | | | | | [facility] | [address] | | | | | and Healing, | [place], [place] | | | | | [place] [address] | [address] | | | | | Floor [place], [place] | | | | | | [address] | | | | | | [phone] | | | +--------+ + + + [...]
--- OUTSIDE RECORDS SUMMARY | ~2019-11-01 | XMS | Encounter Summary ---
Demographics + + + | Address | [address] | | | [place] [address] | + + + | Home Phone [...] + + + | Author | [place] [facility] | + + + | Organization | [facility] | + + + | Address | Unknown | + + + | Phone | Unavailable | + + + Support + + +---------+ + | Name | Relationship | Address | Phone | + + +---------+ + | Ruby Au | ECON | Unknown | | + + +---------+ + Care Team Providers + +------+ + | Care Linoleum Layer Name | Role | Phone | [...] | Visit | Medicine Clinic at | LITHOGRAPHIC PLATEMAKER [address] | Pre-Operative | | | | [facility] 4th Floor [address] | Examination (Primary | | | | [address] | [place], [place] | Dx); Pseudotumor | | | | Mailcode: CH4S | [phone] | Cerebri; Encounter | | | | [facility] | | for Long-Term | | | | and Healing, | | (Current) Use of | | | | Building 1,4th Floor | | Anticoagulants | | | | [place], [place] | | | | | | [address] | | | | | | [phone] | | | +--------+---------+ + + + [...] Scanned [facility] [address] [place] [address] And [facility],[address] [place] [address] [phone] documented in this encou nter Plan of Treatment + + +--------+ + + | Name | Type | Priori | Associated Diagnoses | Order Schedule | | | | ty | | | + + +--------+ + + | AR COLLECTION VENOUS | Procedures | Routin | [...] | + + + + + | [facility] DEPARTMENT OF | [address] | [place] [address] | | | PATHOLOGY | [address] | | | + + + + + | [facility] DEPARTMENT OF | [address] | [place] [address] | | | PATHOLOGY | [address] [...] | 29.5Comment: | 26.0 - 36.0 | [facility] | | | | APTT Therapeutic Range [...] | + + + + + | [facility] | [address] | [place] [address] | | | PATHOLOGY | [address] | | | + + + + + | [facility] OF | [address] | [place] [address] | | | PATHOLOGY | [address] [...] + | [facility] DEPARTMENT OF | [address] | [place] [address] | | | PATHOLOGY | [address] | | | + + + + + | [facility] DEPARTMENT OF | [address] | [place] [address] | | | PATHOLOGY | [address] [...] | + + + + + | [facility] | [address] | [place] [address] | | | PATHOLOGY | [address] | | | + + + + + | [facility] | [address] | [place] [address] | | | PATHOLOGY | [address] [...] Performed At | + + + | [id number] Estimated GFR > 60 mL/min/1.73 sq m if non- | [facility] | | Maltese [id number] Estimated GFR > 60 mL/min/1.73 sq m if | DEPARTMENT OF | | Maltese GFR is estimated using the MDRD equation [...] | + + + + + | [facility] | [address] | [place] [address] | | | PATHOLOGY | [address] | | | + + + + + | [facility] | [facility] | [place] [address] | | | PATHOLOGY | [address] [...] | + + + + + | [facility] | [address] | [place] [address] | | | PATHOLOGY | [address] | | | + + + + + | [facility] | [address] | [place] [address] | | | PATHOLOGY | [address] | | | + + + + + documented in this encounter Visit Diagnoses + + | Diagnosis | + + | Other specified pre-operative examination - Primary | + + | Pseudotumor cerebri Benign intracranial hypertension | + + | [facility] (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
--- OUTSIDE RECORDS SUMMARY | ~2019-11-01 | XMS | Encounter Summary ---
Demographics + + + | Address | [address] | | | [place] [address] | + + + | Home Phone [...] Organization | [facility] | | | and [...] Team Providers + +------+ + | Care Literature Professor Name | Role | Phone | + +------+ + PCP | Unavailable | + +------+ + Encounter Details +--------+ + + + + | Date | Type | Department | Care Team | Description | +--------+ + + + + | 05/31/ | Hospital | [facility] | | | | 1991 | Encounter | MED CTR [facility] | | | | | | HEALTH [address] | | | | | | [place], | | | | | | [place] [address] | | | | | | [phone] | | | +--------+ + + + [...]
--- OUTSIDE RECORDS SUMMARY | ~2019-11-01 | XMS | Encounter Summary ---
Demographics + + + | Address | [address] | | | [place] [address] | + + + | Home Phone [...] + + + | Author | [place] [employer] [facility] | + + + | Organization | [facility] [employer] [facility] [...] Team Providers + +------+ + | Care Charge Preparation Technician Name | Role | Phone | [...] Care Coordination | | 2018 | | [place] | [address] | | | | | Neuro-Ophthalmology | [facility] [place] | | | | | at [facility] [address] | [address] | | | | | Ave Mailcode: CH3G | [phone] | | | | | [facility] | | | | | | and Healing, | | | | | | Building | | | | | | Floor [place], [place] | | | | | | [address] | | | | | | [phone] | | | +--------+ + + + [...]
--- OUTSIDE RECORDS SUMMARY | ~2019-11-01 | XMS | Encounter Summary ---
Demographics + + + | Address | [address] | | | [place] [address] | + + + | Home Phone [...] + + + | Author | [place] [employer] [facility] | + + + | Organization | [facility] [facility] [...] Team Providers + +------+ + | Care System Support Analyst Name | Role | Phone | + +------+ + | Brenden Benavides MD | PCP | | + +------+ + Encounter Details +--------+ + + + + | Date | Type | Department | Care Team | Description | +--------+ + + + + | 02/22/ | Telephone | [facility] | Brad Currie MD | | | 2006 | | [place] | | | | | | Neuro-Ophthalmology | | | | | | [address] | | | | | | [place] Mailcode: CEI | | | | | | Mailcode: CEI | | | | | | [place], [place] | | | | | | [address] | | | | | | [phone] | | | +--------+ + + + [...]
--- OUTSIDE RECORDS SUMMARY | ~2019-11-01 | XMS | Encounter Summary ---
Demographics + + + | Address | [address] | | | [place] [address] | + + + | Home Phone | | + + + | Preferred Language | Unknown | + + + | Marital Status | | + + + | Latter-Day Affiliation | Unknown | + + + | Race | Unknown | + + + | Ethnic Group | Unknown | + + + Author + + + | Author | [facility] | | | and [place] | + + + | Organization | [facility] | | | and [place] [...] Team Providers + +------+ + | Care Sql Ssrs Developer Name | Role | Phone | + +------+ + PCP | Unavailable | + +------+ + Encounter Details +--------+ + + + + | Date | Type | Department | Care Team | Description | +--------+ + + + + | 10/04/ | Hospital | [facility] | | | | 1991 | Encounter | MED CTR [facility] | | | | | | HEALTH SV [address] | | | | | | [place], | | | | | | [place] [address] | | | | | | [phone] | | | +--------+ + + + [...]
--- OUTSIDE RECORDS SUMMARY | ~2019-11-01 | XMS | Encounter Summary ---
Demographics + + + | Address | [address] | | | [place] [address] | + + + | Home Phone [...] + + + | Author | [place] [employer] [facility] | + + + | Organization | [facility] [employer] [facility] | + [...] Team Providers + +------+ + | Care Pattern Filer Name | Role | Phone | + [...] | | | Ave Mailcode: CH8N | [place], [place] | | | | | [facility] | [address] | | | | | and Healing, | [phone] | | | | | | | | | | | Floor [place], [place] | | | | | | [address] | | | | | | [phone] | | | +--------+ + + + [...]
--- OUTSIDE RECORDS SUMMARY | ~2019-11-01 | XMS | Encounter Summary ---
Demographics + + + | Address | [address] | | | [place] [address] | + + + | Home Phone [...] + + + | Author | [place] [employer] [facility] | + + + | Organization | [facility] [employer] [facility] | + + + | Address | Unknown | + + + | Phone | Unavailable | + + + Support + + +---------+ + | Name | Relationship | Address | Phone | + + +---------+ + | Ruby Au | ECON | Unknown | | + + +---------+ + Care Team Providers + +------+ + | Care Nib Inspector Name | Role | Phone | [...] Neurosurgery [address] | | | | | [facility] | [address] | | | | | and Healing, | [place], [place] | | | | | [facility] | [address] | | | | | Floor [place], [place] | | | | | | [address] | | | | | | [phone] | | | +--------+ + + + [...]
--- OUTSIDE RECORDS SUMMARY | ~2019-11-01 | XMS | Encounter Summary ---
Demographics + + + | Address | [address] | | | [place] [address] | + + + | Home Phone [...] + + + | Author | [place] [employer] [facility] | + + + | Organization | [facility] [employer] [facility] [...] Providers + +------+ + | Care Motion Picture Camera Operator Name | Role | Phone | [...] Neurosurgery [address] | | | | | [facility] | [address] | | | | | and Healing, | [place], [place] | | | | | Building | [address] | | | | | Floor [place], [place] | | | | | | [address] | | | | | | [phone] | | | +--------+--------+ + + + [...]
--- OUTSIDE RECORDS SUMMARY | ~2019-11-01 | XMS | Encounter Summary ---
Demographics + + + | Address | [address] | | | [place] [address] | + + + | Home Phone [...] | [facility] | | | and [place] | [...] Providers + +------+ + | Care Electric Welder Name | Role | Phone | [...] | PHYSIATRY [address] | [address] | | | | | [place], | [place] | | | | | [place] [address] | [place] [address] | | | | | [phone] | | | +--------+ + + + [...]
--- OUTSIDE RECORDS SUMMARY | ~2019-11-01 | XMS | Encounter Summary ---
Demographics + + + | Address | [address] | | | [place] [address] | + + + | Home Phone [...] + + + | Author | [place] [employer] [facility] | + + + | Organization | [facility] [employer] [facility] | + + + | Address | Unknown | + + + | Phone | Unavailable | + + + Support + + +---------+ + | Name | Relationship | Address | Phone | + + +---------+ + | Ruby Au | ECON | Unknown | | + + +---------+ + Care Team Providers + +------+ + | Care Slitter And Cutter Operator Name | Role | Phone | [...] Neurosurgery [address] | | | | | [facility] | [address] | | | | | and Healing, | [place], [place] | | | | | [facility] | [address] | | | | | Floor [place], [place] | | | | | | [address] | | | | | | [phone] | | | +--------+ + + + [...]
--- OUTSIDE RECORDS SUMMARY | ~2019-11-01 | XMS | Encounter Summary ---
Demographics + + + | Address | [address] | | | [place] [address] | + + + | Home Phone [...] Organization | [facility] | | | and [...] Team Providers + +------+ + | Care Apparatus Operator Name | Role | Phone | [...] | Specialty | Physical | Diagnoses | Dick, | Amanuel Jennings | | | Services | Medicine and | Numbness of | Amanuel Yu MD | Bud Yu MD [address] | | | Required | Rehabilitatio | left hand | [address] | | | | n | Weakness of | [address] | [place], | | | | | both hands | [place], | [place] [address] | | | | | [place] left | [place] [address] | Phone: | | | | | wrist Pain | Phone: | [phone] | | | | | of right | [phone] | Fax: | | | | | thumb | Fax: | [phone] | | | | | Trigger | [phone] | | | | | | finger of | | | | | | | right thumb | | | | | | | Procedures | | | | | | | [place] MOT[place] | | | | | | | &/SENS > | | | | | | | NRV CNDJ | | | | | | | PRECONF | | | | | | | ELTRODE LIMB | | | | | | | [place] NEEDLE | | | | | | [...] | Specialty | Orthopedic | Diagnoses | Jennings, | Krishan, | | | Services | Surgery | Pain of | Amanuel Yu MD | Luís Waters MD | | | Required | | right thumb | [address] | [address] | | | | | Trigger | [address] | [place] | | | | | finger of | [place], | [place] | | | | | right thumb | [place] [address] | [address] | | | | | | Phone: | Phone: | | | | | | [phone] | [phone] | | | | | | Fax: | Fax: | | | | | | [phone] | [phone] | +--------+ + + + + + [...] | | Rehabilitatio | tunnel | PA-C [address] | [address] | | | | n | syndrome on | | [place], | | | | | left | [place] | [place] [address] | | | | | | WAY | Phone: | | | | | | [place], | [phone] | | | | | | [place] [address] | Fax: | | | | | | Phone: | [phone] | | | | | | [phone] | | | | | | | Fax: | | | | | | | [phone] | | +--------+--------+ + + + + Encounter Details +--------+---------+ + + + | Date | Type | Department | Care Team | Description | +--------+---------+ + + + | 01/03/ | Office | [facility] [place] | Amanuel Jennings, | Numbness of left | | 2019 | Visit | PHYSIATRY [address] | MD [address] | hand (Primary Dx); | | | | [place], | [place], [place] | Weakness of both | | | | [place] [address] | [address] | hands; Mass of left | | | | [phone] | | wrist; Pain of right | | | | | | thumb; Trigger | | | [...] encounter Patient Instructions Patient Instructions Adelaide Santa, Weatherization Technician - 01/03/2019 1:00 PM Rina chowdhury o wear carpal tunnel wrist splints. Wear [...] she's had previous nerve conduction study in 2006 followed b y bilateral carpal tunnel release. Annabella Au is using a wrist splint nightly but reports that this has not improved sy mptoms. Past Medical History Past Medical History: Diagnosis Date Abnormal vaginal bleeding Acute low back pain Antisocial personality disorder ([facility]) Anxiety disorder Asthma Benign essential hypertension Chronic back pain Chronic obstructive lung disease (HCC) Chronic posttraumatic stress disorder Depressive disorder Diabetes mellitus type 2 in obese ([facility]) Gastroesophageal reflux disease Heroin dependence ([facility]) Hoarse Hypertensive disorder Insomnia with sleep apnea IV drug abuse ([facility]) Low back strain Numbness of left hand Obstructive sleep apnea of adult Opioid dependence on agonist therapy ([facility]) Other chronic pain Panic disorder without agoraphobia with severe panic attacks Polysubstance dependence ([facility]) Sedative, hypnotic or anxiolytic dependence, in remission ([facility]) Tobacco user Trigger finger of right hand [...] wrist dorsiflexion , finger abduction, and right facilities supervisor. 4/5 hand facilities supervisor on the left Reflexes: 2+ normal and [...] scribed by in my presence, Adelaide Santa, Weatherization Technician and are both accurate and comp lete. [...]
--- OUTSIDE RECORDS SUMMARY | ~2019-11-01 | XMS | Encounter Summary ---
Demographics + + + | Address | [address] | | | [place] [address] | + + + | Home Phone [...] + + + | Author | [place] [employer] [facility] | + + + | Organization | [facility] [...] Team Providers + +------+ + | Care Awning Assembler Name | Role | Phone | + +------+ + | Yeison Simms MD | PCP | Unavailable | + +------+ + Encounter Details +--------+ + + + + | Date | Type | Department | Care Team | Description | +--------+ + + + + | 04/06/ | Telephone | Neurosurgery at | [place], | | | 2010 | | [place] [address] | MD [address] | | | | | [place] Mailcode: CH8N | [address] | | | | | [facility] | Rd [place], [place] | | | | | and Healing, | [address] | | | | | | [phone] | | | | | Floor [place], [place] | | | | | | [address] | | | | | | [phone] | | | +--------+ + + + [...]
--- OUTSIDE RECORDS SUMMARY | ~2019-11-01 | XMS | Encounter Summary ---
Demographics + + + | Address | [address] | | | [place] [address] | + + + | Home Phone [...] + + + | Author | [place] [employer] [facility] | + + + | Organization | [facility] [employer] [facility] | + + + | Address | Unknown | + + + | Phone | Unavailable | + + + Support + + +---------+ + | Name | Relationship | Address | Phone | + + +---------+ + | Ruby Au | ECON | Unknown | | + + +---------+ + Care Team Providers + +------+ + | Care Silhouette Artist Name | Role | Phone | + +------+ + | Brenden Benavides MD | PCP | | + +------+ + Encounter Details +--------+ + + + + | Date | Type | Department | Care Team | Description | +--------+ + + + + | 02/23/ | Telephone | [facility] | Brad Currie MD | | | 2006 | | [place] | | | | | | Neuro-Ophthalmology | | | | | | [address] | | | | | | [place] Mailcode: CEI | | | | | | Mailcode: CEI | | | | | | [place], [place] | | | | | | [address] | | | | | | [phone] | | | +--------+ + + + [...]
--- OUTSIDE RECORDS SUMMARY | ~2019-11-01 | XMS | Encounter Summary ---
Demographics + + + | Address | [address] | | | [place] [address] | + + + | Home Phone [...] + + + | Author | [place] [employer] [facility] | + + + | Organization | [facility] [employer] [facility] | + [...] Team Providers + +------+ + | Care Tobacco Farmworker Name | Role | Phone | + +------+ + | Pedro Luis Sams MD | PCP | | + +------+ + Encounter Details +--------+ + + + + | Date | Type | Department | Care Team | Description | +--------+ + + + + | 08/31/ | Telephone | [facility] | Leticia Pitts MD | | | 2010 | | [place]/Ophthalmol | | | | | | leon at [facility] [address] | | | | | | Gianluca Kirk Mailcode: | | | | | | CH11P Center for | | | | | | Health and Healing, | | | | | | [facility] | | | | | | Floor [place], [place] | | | | | | [address] | | | | | | [phone] | | | +--------+ + + + [...]
--- OUTSIDE RECORDS SUMMARY | ~2019-11-01 | XMS | Encounter Summary ---
Demographics + + + | Address | [address] | | | [place] [address] | + + + | Home Phone | | + + + | Preferred Language | Unknown | + + + | Marital Status | | + + + | Quaker Affiliation | Unknown | + + + | Race | Unknown | + + + | Ethnic Group | Unknown | + + + Author + + + | Author | [facility] | | | and [place] | + + + | Organization | [facility] [...] Team Providers + +------+ + | Care Syrup Mixer Assistant Name | Role | Phone | + +------+ + PCP | Unavailable | + +------+ + Encounter Details +--------+ + + + + | Date | Type | Department | Care Team | Description | +--------+ + + + + | 09/07/ | Hospital | [facility] | | | | 1991 | Encounter | MED CTR EMERGENCY | | | | | | CENTER [address] | | | | | | [place] | | | | | | [address] | | | | | | [phone] | | | +--------+ + + + [...]
--- OUTSIDE RECORDS SUMMARY | ~2019-11-01 | XMS | Encounter Summary ---
Demographics + + + | Address | [address] | | | [place] [address] | + + + | Home Phone [...] + + | Author | [place] [employer] [facility] | + + + | Organization | [facility] [employer] [facility] | + + + | Address | Unknown | + + + | Phone | Unavailable | + + + Support + + +---------+ + | Name | Relationship | Address | Phone | + + +---------+ + | Ruby Au | ECON | Unknown | | + + +---------+ + Care Team Providers + +------+ + | Care Director Corporate Name | Role | Phone | + +------+ + | Yeison Simms MD | PCP | Unavailable | + +------+ + Encounter Details +--------+ + + + + | Date | Type | Department | Care Team | Description | +--------+ + + + + | 08/23/ | Telephone | Neurosurgery at | Kiki Rosen, | | | 2007 | | [facility] [address] | [place]ORA JOSE | | | | | [place] Mailcode: CH8N | Neurosurgery [address] | | | | | [facility] | [address] | | | | | and Healing, | [place], [place] | | | | | [place] [address] | [address] | | | | | Floor [place], [place] | | | | | | [address] | | | | | | [phone] | | | +--------+ + + + [...]
--- OUTSIDE RECORDS SUMMARY | ~2019-11-01 | XMS | Clinical Summary ---
Demographics + + + | Address | [address] | | | [place] [address] | + + + | Home Phone [...] Team Providers + +------+ + | Care Planing Machine Operator Name | Role | Phone | + +------+ + | Dennis Maddox | PCP | | + +------+ + Source Comments REBECA is fully live on both [facility] and [facility] Allergies + + + + + [...] | | | + +--------+ +--------+-------+---------+--------+ | METAL CLEANER MEDICAID | METAL CLEANER | [id number] | 11/28/19 | | | [...] | 1975 | [phone] | [place] [address] | | | rene | | | 0 (Home) | | + +--------+ +--------+ + + Advance Directives + + + + + | Type | Date Recorded | Patient | Explanation | | | | Field Manager | | + + + + + | Advance | | | | | Directives and | | | | | Living Will | | | | + + + + + | Power of | | | | | Solar Field Service Technician | | | | + + + [...]
--- OUTSIDE RECORDS SUMMARY | ~2019-11-01 | XMS | Encounter Summary ---
Demographics + + + | Address | [address] | | | [place] [address] | + + + | Home Phone | | + + + | Preferred Language | Unknown | + + + | Marital Status | | + + + | Samaritan Affiliation | Unknown | + + + | Race | Unknown | + + + | Ethnic Group | Unknown | + + + Author + + + | Author | [facility] | | | and [place] | + + + | Organization | [facility] | | | and [place] [...] Team Providers + +------+ + | Care Shipping Receiving Manager Name | Role | Phone | + +------+ + PCP | Unavailable | + +------+ + Encounter Details +--------+ + + + + | Date | Type | Department | Care Team | Description | +--------+ + + + + | 07/30/ | Hospital | [facility] | | | | 2008 - | Encounter | MED CTR MED ONC | | | | | | [address] | | | | 08/02/ | | [place] [address] | | | | 2008 | | [phone] | | | +--------+ + + + [...]
--- OUTSIDE RECORDS SUMMARY | ~2019-11-01 | XMS | Encounter Summary ---
Demographics + + + | Address | [address] | | | [place] [address] | + + + | Home Phone [...] + + + | Author | [place] [employer] [facility] | + + + | Organization | [facility] [employer] [facility] | + + + | Address | Unknown | + + + | Phone | Unavailable | + + + Support + + +---------+ + | Name | Relationship | Address | Phone | + + +---------+ + | Ruby Au | ECON | Unknown | | + + +---------+ + Care Team Providers + +------+ + | Care Complaint Evaluation Officer Name | Role | Phone | + +------+ + | Pedro Luis Sams MD | PCP | | + +------+ + Encounter Details +--------+ + + + + | Date | Type | Department | Care Team | Description | +--------+ + + + + | 10/19/ | Telephone | [facility] | Funmilayo Osorio MD | | | 2010 | | [place]/Ophthalmol | [address] | | | | | leon at [facility] [address] | [place], [place] | | | | | [address] Mailcode: | [address] | | | | | CH11P [facility] | [phone] | | | | | Health and Healing, | | | | | | [facility] | | | | | | [place], [place] | | | | | | [address] | | | | | | [phone] | | | +--------+ + + + [...]
--- OUTSIDE RECORDS SUMMARY | ~2019-11-01 | XMS | Encounter Summary ---
Demographics + + + | Address | [address] | | | [place] [address] | + + + | Home Phone [...] + + + | Author | [place] [employer] [facility] | + + + | Organization | [facility] [employer] [facility] [...] Providers + +------+ + | Care Animal Chiropractor Name | Role | Phone | + [...] + | 09/14/ | Telephone | Neurosurgery [address] | Magdiel Fallon, | Headache | | 2008 | | [address] | ,PhD [address] | | | | | [place] Mailcode:OP14B | [address] | | | | | [place] | [place], [place] | | | | | [place], [place] | [address] | | | | | [address] | [phone] | | | | | [phone] | | | +--------+ + + + [...]
--- OUTSIDE RECORDS SUMMARY | ~2019-11-01 | XMS | Encounter Summary ---
Demographics + + + | Address | [address] | | | [place] [address] | + + + | Home Phone [...] Organization | [facility] | | | and [...] Team Providers + +------+ + | Care Supervising Chef Name | Role | Phone | + +------+ + PCP | Unavailable | + +------+ + Encounter Details +--------+ + + + + | Date | Type | Department | Care Team | Description | +--------+ + + + + | 10/29/ | Hospital | [facility] | | | | 1991 | Encounter | MED CTR EMERGENCY | | | | | | CENTER [address] | | | | | | [place] | | | | | | [address] | | | | | | [phone] | | | +--------+ + + + [...]
--- OUTSIDE RECORDS SUMMARY | ~2019-11-01 | XMS | Encounter Summary ---
Demographics + + + | Address | [address] | | | [place] [address] | + + + | Home Phone [...] + + + | Author | [place] [employer] [facility] | + + + | Organization | [facility] [employer] [facility] | + + + | Address | Unknown | + + + | Phone | Unavailable | + + + Support + + +---------+ + | Name | Relationship | Address | Phone | + + +---------+ + | Ruby Au | ECON | Unknown | | + + +---------+ + Care Team Providers + +------+ + | Care Environmental Programs Manager Name | Role | Phone | [...] | | | Ave Mailcode: CH8N | [place], [place] | | | | | [facility] | [address] | | | | | and Healing, | [phone] | | | | | [facility] | | | | | | Floor [place], [place] | | | | | | [address] | | | | | | [phone] | | | +--------+ + + + [...]
--- OUTSIDE RECORDS SUMMARY | ~2019-11-01 | XMS | Encounter Summary ---
Demographics + + + | Address | [address] | | | [place] [address] | + + + | Home Phone [...] Providers + +------+ + | Care System Dispatcher Name | Role | Phone | + +------+ + PCP | Unavailable | + +------+ + Encounter Details +--------+ + + + + | Date | Type | Department | Care Team | Description | +--------+ + + + + | 10/14/ | Hospital | [facility] | | | | 1991 | Encounter | MED CTR WOMENS | | | | | | HEALTH SV [address] | | | | | | [place], | | | | | | [place] [address] | | | | | | [phone] | | | +--------+ + + + [...]
--- OUTSIDE RECORDS SUMMARY | ~2019-11-01 | XMS | Encounter Summary ---
Demographics + + + | Address | [address] | | | [place] [address] | + + + | Home Phone [...] + | Organization | [facility] | | | and [place] [...] Team Providers + +------+ + | Care Motorcycle Racer Name | Role | Phone | + +------+ + PCP | Unavailable | + +------+ + Encounter Details +--------+ + + + + | Date | Type | Department | Care Team | Description | +--------+ + + + + | 10/10/ | Hospital | [facility] | | | | 1991 | Encounter | MED CTR WOMENS | | | | | | HEALTH SV [address] | | | | | | [place], | | | | | | [place] [address] | | | | | | [phone] | | | +--------+ + + + [...]
--- OUTSIDE RECORDS SUMMARY | ~2019-11-01 | XMS | Encounter Summary ---
Demographics + + + | Address | [address] | | | [place] [address] | + + + | Home Phone [...] + + + | Author | [place] [employer] [facility] | + + + | Organization | [facility] | + + + | Address | Unknown | + + + | Phone | Unavailable | + + + Support + + +---------+ + | Name | Relationship | Address | Phone | + + +---------+ + | Ruby Au | ECON | Unknown | | + + +---------+ + Care Team Providers + +------+ + | Care Sludge Filtration Operator Name | Role | Phone | [...] | | | Ave Mailcode: CH8N | [place], [place] | | | | | [facility] | [address] | | | | | and Healing, | [phone] | | | | | [facility] | | | | | | Floor [place], [place] | | | | | | [address] | | | | | | [phone] | | | +--------+ + + + [...]
--- OUTSIDE RECORDS SUMMARY | ~2019-11-01 | XMS | Encounter Summary ---
Demographics + + + | Address | [address] | | | [place] [address] | + + + | Home Phone | | + + + | Preferred Language | Unknown | + + + | Marital Status | | + + + | Buddhism Affiliation | Unknown | + + + | Race | Unknown | + + + | Ethnic Group | Unknown | + + + Author + + + | Author | [facility] | | | and [place] | + + + | Organization | [facility] | | | and [place] | [...] Team Providers + +------+ + | Care Committee Member Name | Role | Phone | + [...] | | | [place] | [address] | | | | | [address] | [phone] | | | | | [phone] | | | +--------+ + + + [...]
--- OUTSIDE RECORDS SUMMARY | ~2019-11-01 | XMS | Encounter Summary ---
Demographics + + + | Address | [address] | | | [place] [address] | + + + | Home Phone [...] + + + | Author | [place] [employer] [facility] | + + + | Organization | [facility] [employer] [facility] [...] Team Providers + +------+ + | Care Plug Cutting Machine Operator Name | Role | Phone | + +------+ + | Brenden Benavides MD | PCP | | + +------+ + Encounter Details +--------+ + + + + | Date | Type | Department | Care Team | Description | +--------+ + + + + | 02/22/ | Telephone | [facility] | Hay Hughes MD [address] | | | 2006 | | [place] | [address] | | | | | Oculoplastics at | [place], [place] | | | | | Maicol Perez [facility] | [address] | | | | | [address] | [phone] | | | | | Mailcode: PATTI | | | | | | [place], [place] | | | | | | [address] | | | | | | [phone] | | | +--------+ + + + [...]
--- OUTSIDE RECORDS SUMMARY | ~2019-11-01 | XMS | Encounter Summary ---
Demographics + + + | Address | [address] | | | [place] [address] | + + + | Home Phone [...] Organization | [facility] | | | and [place] | [...] Providers + +------+ + | Care Manager Of Pharmacy Name | Role | Phone | + +------+ + PCP | Unavailable | + +------+ + Encounter Details +--------+ + + + + | Date | Type | Department | Care Team | Description | +--------+ + + + + | 09/27/ | Hospital | [facility] | | | | 1991 | Encounter | MED CTR WOMENS | | | | | | HEALTH SV [address] | | | | | | [place], | | | | | | [place] [address] | | | | | | [phone] | | | +--------+ + + + [...]
--- OUTSIDE RECORDS SUMMARY | ~2019-11-01 | XMS | Encounter Summary ---
Demographics + + + | Address | [address] | | | [place] [address] | + + + | Home Phone [...] + + + | Author | [place] [employer] [facility] | + + + | Organization | [facility] [employer] [facility] | + [...] Providers + +------+ + | Care Bilingual Teacher Name | Role | Phone | [...] Neurosurgery [address] | | | | | [facility] | [address] | | | | | and Healing, | [place], [place] | | | | | Building | [address] | | | | | Floor [place], [place] | | | | | | [address] | | | | | | [phone] | | | +--------+--------+ + + + [...]
--- OUTSIDE RECORDS SUMMARY | ~2019-11-01 | XMS | Encounter Summary ---
Demographics + + + | Address | [address] | | | [place] [address] | + + + | Home Phone [...] | Organization | [facility] | | | and [place] [...] Providers + +------+ + | Care Professional Nursing Tutor Name | Role | Phone | + +------+ + PCP | Unavailable | + +------+ + Encounter Details +--------+ + + + + | Date | Type | Department | Care Team | Description | +--------+ + + + + | 09/03/ | Hospital | [facility] | | | | 1991 | Encounter | MED CTR WOMENS | | | | | | HEALTH SV [address] | | | | | | [place], | | | | | | [place] [address] | | | | | | [phone] | | | +--------+ + + + [...]
--- OUTSIDE RECORDS SUMMARY | ~2019-11-01 | XMS | Encounter Summary ---
Demographics + + + | Address | [address] | | | [place] [address] | + + + | Home Phone [...] + + + | Author | [place] [employer] [facility] | + + + | Organization | [facility] [employer] [facility] [...] Team Providers + +------+ + | Care Chemistry Manager Name | Role | Phone | [...] Telephone follow-up | | 2015 | | [place] | [address] | | | | | Neuro-Ophthalmology | [place], [place] | | | | | at [facility] [address] | [address] | | | | | Ave Mailcode: [facility] | [phone] | | | | | [facility] | | | | | | and [place], | | | | | | | | | | | | Floor [place], [place] | | | | | | [address] | | | | | | [phone] | | | +--------+ + + + [...]
--- OUTSIDE RECORDS SUMMARY | ~2019-11-01 | XMS | Encounter Summary ---
Demographics + + + | Address | [address] | | | [place] [address] | + + + | Home Phone [...] + + | Author | [place] [facility]CH[facility] | + + + | Organization | [facility] | + + + | Address | Unknown | + + + | Phone | Unavailable | + + + Support + + +---------+ + | Name | Relationship | Address | Phone | + + +---------+ + | Ruby Au | ECON | Unknown | | + + +---------+ + Care Team Providers + +------+ + | Care Dispensing Operator Name | Role | Phone | [...] Cerebri | | 2006 | Visit | [place] | | (Primary Dx) | | | | Neuro-Ophthalmology | | | | | | [address] | | | | | | [place] Mailcode: CEI | | | | | | Mailcode: CEI | | | | | | [place], [place] | | | | | | [address] | | | | | | [phone] | | | +--------+---------+ + + + [...] Referred by: CASIMIRO PAYTON MD [address] [place] [address] Symptoms: She has not been taking her [...] Brad Currie MD Neuro-Ophthalmology and Cerebrovascular Disease Earthmoving Plant Operator of Ophthalmology, Neurology, and Neurosurgery documented [...]
--- OUTSIDE RECORDS SUMMARY | ~2019-11-01 | XMS | Encounter Summary ---
Demographics + + + | Address | [address] | | | [place] [address] | + + + | Home Phone [...] + + + | Author | [place] [employer] [facility] | + + + | Organization | [facility] [employer] [facility] | + + + | Address | Unknown | + + + | Phone | Unavailable | + + + Support + + +---------+ + | Name | Relationship | Address | Phone | + + +---------+ + | Ruby Au | ECON | Unknown | | + + +---------+ + Care Team Providers + +------+ + | Care Portfolio Assistant Name | Role | Phone | [...] | | | Ave Mailcode: CH8N | [place], [place] | | | | | [facility] | [address] | | | | | and Healing, | [phone] | | | | | [facility] | | | | | | Floor [place], [place] | | | | | | [address] | | | | | | [phone] | | | +--------+ + + + [...]
--- OUTSIDE RECORDS SUMMARY | ~2019-11-01 | XMS | Clinical Summary ---
Demographics + + + | Address | [address] | | | [place] [address] | + + + | Home Phone | | + + + | Preferred Language | Unknown | + + + | Marital Status | | + + + | Cheondoism Affiliation | Unknown | + + + | Race | Unknown | + + + | Ethnic Group | Unknown | + + + Author + + + | Author | [employer] (Historical as of | | | 07-14-19) | + + + | Organization | [facility] (Historical as of | | | 07-14-19) [...] Team Providers + +------+ + | Care Abstract Manager Name | Role | Phone | [...] +------+-------+ + | MEDICAID | MEDICA | [id number] | | | [address] | | | [place] | | | | [place], [place] | | | [place] | | | | [address] | + +--------+ +------+-------+ + | [facility] | YELLOW | [id number] | | | | | PLANS | [...] | | sameera/Jean-Claude | | 1974 | [phone] | [place] | | | rene | | | [address] | [address] | + +--------+ +--------+ + +
--- OUTSIDE RECORDS SUMMARY | ~2019-11-01 | XMS | Encounter Summary ---
Demographics + + + | Address | [address] | | | [place] [address] | + + + | Home Phone [...] + + + | Author | [place] [employer] [facility] | + + + | Organization | [facility] [employer] [facility] | + + + | Address | Unknown | + + + | Phone | Unavailable | + + + Support + + +---------+ + | Name | Relationship | Address | Phone | + + +---------+ + | Ruby Au | ECON | Unknown | | + + +---------+ + Care Team Providers + +------+ + | Care Animal Health Technician Name | Role | Phone | [...] | | | Ave Mailcode: CH8N | [place], [place] | | | | | [facility] | [address] | | | | | and Healing, | [phone] | | | | | [facility] | | | | | | Floor [place], [place] | | | | | | [address] | | | | | | [phone] | | | +--------+ + + + [...]
--- OUTSIDE RECORDS SUMMARY | ~2019-11-01 | XMS | Encounter Summary ---
Demographics + + + | Address | [address] | | | [place] [address] | + + + | Home Phone [...] + + + | Author | [place] [employer] [facility] | + + + | Organization | [facility] [employer] [facility] | + + + | Address | Unknown | + + + | Phone | Unavailable | + + + Support + + +---------+ + | Name | Relationship | Address | Phone | + + +---------+ + | Ruby Au | ECON | Unknown | | + + +---------+ + Care Team Providers + +------+ + | Care Clerical Car Checker Name | Role | Phone | [...] [address] | [place] [address] | | | | | [place] Mailcode: CH8N | [place] | | | | | [facility] | Rd [place], [place] | | | | | and Healing, | [address] | | | | | | [phone] | | | | | Floor [place], [place] | | | | | | [address] | | | | | | [phone] | | | +--------+ + + + [...]
--- OUTSIDE RECORDS SUMMARY | ~2019-11-01 | XMS | Encounter Summary ---
Demographics + + + | Address | [address] | | | [place] [address] | + + + | Home Phone [...] | Organization | [facility] | | | and [place] [...] Team Providers + +------+ + | Care Hospital Technician Name | Role | Phone | + +------+ + PCP | Unavailable | + +------+ + Encounter Details +--------+ + + + + | Date | Type | Department | Care Team | Description | +--------+ + + + + | 01/01/ | Hospital | [facility] | [place], | | | 2009 | Encounter | MED CTR EMERGENCY | Brad Yu MD [address] | | | | | [place] [address] | [facility] | | | | | [place] | [place] [address] | | | | | [address] | [phone] | | | | | [phone] | | | +--------+ + + + [...]
--- OUTSIDE RECORDS SUMMARY | ~2019-11-01 | XMS | Encounter Summary ---
Demographics + + + | Address | [address] | | | [place] [address] | + + + | Home Phone [...] | Organization | [facility] | | | and [place] [...] Team Providers + +------+ + | Care Suspender Cutter Name | Role | Phone | + +------+ + PCP | Unavailable | + +------+ + Encounter Details +--------+ + + + + | Date | Type | Department | Care Team | Description | +--------+ + + + + | 07/24/ | Hospital | [facility] | | | | 1990 | Encounter | MED CTR EMERGENCY | | | | | | CENTER [address] | | | | | | [place] | | | | | | [address] | | | | | | [phone] | | | +--------+ + + + [...]
--- OUTSIDE RECORDS SUMMARY | ~2019-11-01 | XMS | Encounter Summary ---
Demographics + + + | Address | [address] | | | [place] [address] | + + + | Home Phone [...] Organization | [facility] | [...] Team Providers + +------+ + | Care Airport Maintenance Chief Name | Role | Phone | + +------+ + PCP | Unavailable | + +------+ + Encounter Details +--------+ + + + + | Date | Type | Department | Care Team | Description | +--------+ + + + + | 10/02/ | Hospital | [facility] | | | | 1991 | Encounter | MED CTR WOMENS | | | | | | HEALTH SV [address] | | | | | | [place], | | | | | | [place] [address] | | | | | | [phone] | | | +--------+ + + + [...]
--- OUTSIDE RECORDS SUMMARY | ~2019-11-01 | XMS | Encounter Summary ---
Demographics + + + | Address | [address] | | | [place] [address] | + + + | Home Phone [...] Author | [facility] | | | and [place] | + + + | Organization | [facility] | | | and [...] Team Providers + +------+ + | Care Cam Milling Machine Operator Name | Role | Phone | + +------+ + PCP | Unavailable | + +------+ + Encounter Details +--------+ + + + + | Date | Type | Department | Care Team | Description | +--------+ + + + + | 04/20/ | Hospital | [facility] | | | | 1995 | Encounter | MED CTR EMERGENCY | | | | | | CENTER [address] | | | | | | [place] | | | | | | [address] | | | | | | [phone] | | | +--------+ + + + [...]
--- OUTSIDE RECORDS SUMMARY | ~2019-11-01 | XMS | Encounter Summary ---
Demographics + + + | Address | [address] | | | [place] [address] | + + + | Home Phone [...] | [facility] | | [...] Team Providers + +------+ + | Care Aeronautical Engineering Teacher Name | Role | Phone | + +------+ + PCP | Unavailable | + +------+ + Encounter Details +--------+ + + + + | Date | Type | Department | Care Team | Description | +--------+ + + + + | 10/20/ | Hospital | [facility] | | | | 1999 | Encounter | MED CTR EMERGENCY | | | | | | CENTER [address] | | | | | | [place] | | | | | | [address] | | | | | | [phone] | | | +--------+ + + + [...]
--- OUTSIDE RECORDS SUMMARY | ~2019-11-01 | XMS | Encounter Summary ---
Demographics + + + | Address | [address] | | | [place] [address] | + + + | Home Phone [...] + + + | Author | [place] [facility] | + + + | Organization | [facility] | + + + | Address | Unknown | + + + | Phone | Unavailable | + + + Support + + +---------+ + | Name | Relationship | Address | Phone | + + +---------+ + | Ruby Au | ECON | Unknown | | + + +---------+ + Care Team Providers + +------+ + | Care Harvester Operator Name | Role | Phone | [...] Operative Report | | 2006 | | [place] at [facility] [address] | | | | | Transcribed | [address] | | | | | | Mailcode: Center | | | | | | for Health and | | | | | | Healing, [facility] | | | | | | [place], [place] | | | | | | [address] | | | | | | [phone] | | | +--------+ + + + [...] | 02/07/2007 12:00 AM PDT | | [id number] | | [id number] [place] [id number] | | | | Date: 02/07/2007 | | | | Attending Surgeon: Hay Hughes M.D. | | | | Shank Carrier(s): Pascual Bermudez M.D. | | | | [...] and medial orbital | | septum. The construction assistant retracted the orbital fat bag with [...] | | KYM / LANETTE | | [id number] / [id number] / [id number] / [id number] | | | | | | | | cc: | | | | | | Brad Currie M.D. | | [facility] | | | | | | Brenden Benavides M.D. | | [facility] | | [address] [facility] [address] | | [place] [address] | | | | | | Electronically signed by Hay Hughes 02-12-2007 05:13:05 PM | | | | | + + documented in this encounter Visit Diagnoses Not on filedocumented in this encounter"
--- OUTSIDE RECORDS SUMMARY | ~2019-11-01 | XMS | Encounter Summary ---
Demographics + + + | Address | [address] | | | [place] [address] | + + + | Home Phone [...] + + + | Author | [place] [employer] [facility] | + + + | Organization | [facility] [email or web address] [facility] | + + + | Address | Unknown | + + + | Phone | Unavailable | + + + Support + + +---------+ + | Name | Relationship | Address | Phone | + + +---------+ + | Ruby Au | ECON | Unknown | | + + +---------+ + Care Team Providers + +------+ + | Care Early Breastfeeding Care Specialist Name | Role | Phone | [...] Cerebri | | 2005 | Visit | [place] | | (Primary Dx) | | | | Neuro-Ophthalmology | | | | | | [address] | | | | | | [address] Mailcode: CEI | | | | | | Mailcode: CEI | | | | | | [place], [place] | | | | | | [address] | | | | | | [phone] | | | +--------+---------+ + + + [...] Brad Currie MD Neuro-Ophthalmology and Cerebrovascular Disease Chemistry Physics Teacher of Ophthalmology, Neurology, and Neurosurgery documented in [...]
--- OUTSIDE RECORDS SUMMARY | ~2019-11-01 | XMS | Encounter Summary ---
Demographics + + + | Address | [address] | | | [place] [address] | + + + | Home Phone [...] | Organization | [facility] | | | and [place] [...] Providers + +------+ + | Care Solar Site Assessment Specialist Name | Role | Phone | + +------+ + PCP | Unavailable | + +------+ + Encounter Details +--------+ + + + + | Date | Type | Department | Care Team | Description | +--------+ + + + + | 03/14/ | Hospital | [facility] | [place] | | | 2012 | Encounter | HOSPITAL EMERGENCY | MD [address] | | | | | CENTER [address] | [place] | | | | | [place] | [address] | | | | | [address] | [phone] | | | | | [phone] | | | +--------+ + + + [...]
--- OUTSIDE RECORDS SUMMARY | ~2019-11-01 | XMS | Encounter Summary ---
Demographics + + + | Address | [address] | | | [place] [address] | + + + | Home Phone [...] + + | Author | [place] [employer] [facility] | + + + | Organization | [facility] [employer] [facility] [...] Team Providers + +------+ + | Care Offshore Diver Name | Role | Phone | + [...] Stomach discomfort | | 2007 | | [facility] [address] | [address] | | | | | Ave Mailcode: CH8N | [place], [place] | | | | | [facility] | [address] | | | | | and Healing, | [phone] | | | | | [facility] | | | | | | Floor [place], [place] | | | | | | [address] | | | | | | [phone] | | | +--------+ + + + [...]
--- OUTSIDE RECORDS SUMMARY | ~2019-11-01 | XMS | Encounter Summary ---
Demographics + + + | Address | [address] | | | [place] [address] | + + + | Home Phone [...] + + + | Author | [place] [employer] [facility] | + + + | Organization | [facility] [employer] [facility] | + + + | Address | Unknown | + + + | Phone | Unavailable | + + + Support + + +---------+ + | Name | Relationship | Address | Phone | + + +---------+ + | Ruby Au | ECON | Unknown | | + + +---------+ + Care Team Providers + +------+ + | Care Telephoto Engineer Name | Role | Phone | [...] + | 09/22/ | Telephone | Neurosurgery [address] | Other | | 2005 | | [address] | [address] | | | | | [place] Mailcode:OP14B | [place], | | | | | [facility] | [place] [address] | | | | | [place], [place] | | | | | | [address] | | | | | | [phone] | | | +--------+ + + + [...]
--- OUTSIDE RECORDS SUMMARY | ~2019-11-01 | XMS | Encounter Summary ---
Demographics + + + | Address | [address] | | | [place] [address] | + + + | Home Phone [...] [facility] | | | and [place] | + + + | Address | Unknown | + + + | Phone | Unavailable | + + + Support + + +---------+ + | Name | Relationship | Address | Phone | + + +---------+ + | Saad Chamorro | ECON | Unknown | | + + +---------+ + Care Team Providers + +------+ + | Care Library Helper Name | Role | Phone | + +------+ + PCP | Unavailable | + +------+ + Encounter Details +--------+ + + + + | Date | Type | Department | Care Team | Description | +--------+ + + + + | 05/28/ | Hospital | [facility] | | | | 1991 | Encounter | [facility] | | | | | CENTER [address] | | | | | | [place] | | | | | | [address] | | | | | | [phone] | | | +--------+ + + + [...]
--- OUTSIDE RECORDS SUMMARY | ~2019-11-01 | XMS | Encounter Summary ---
Demographics + + + | Address | [address] | | | [place] [address] | + + + | Home Phone [...] + | Organization | [facility] | | [...] Providers + +------+ + | Care Research Engineer Name | Role | Phone | + +------+ + PCP | Unavailable | + +------+ + Encounter Details +--------+ + + + + | Date | Type | Department | Care Team | Description | +--------+ + + + + | 05/26/ | Hospital | [facility] | Alexa Bower DO | Infection of lumbar | | 2017 - | Encounter | [facility] [address] | [address] | spine (HCC); Type [address] | | | [address] | [place] [address] | diabetes mellitus | | 05/27/ | | [place], [place] | [phone] | without | | 2017 | | [phone] | | complication, | | | | [phone] | | unspecified long | | | | | | term insulin use | | | | | | status ([facility]); | | | | | | History of drug | | | | | | abuse; BMI | | | | | | 40.0-44.9, adult | | | | | | ([facility]); Back pain, | | | | | | unspecified back | | | | | | location, | | | | | | unspecified back | | | | | | pain laterality, | | | | | | unspecified | | | | | | chronicity | +--------+ + + + + Social [...] | Blood Pressure | 165/83 | 05/27/2017 5:56 PM | | | | | PDT | | + + + + + | Pulse | 76 | 05/27/2017 5:56 PM | | | [...] | Weight | 121 kg (266 lb 12.2 | 05/27/2017 5:56 PM | | | | oz) | PDT | | + + + + + | Height | 167.6 cm (5' 6") | 05/27/2017 5:56 PM | | | | | PDT | | + + + + + | Body Mass Index | 43.06 | 05/27/2017 5:56 PM | | | | | PDT | | + + + + + documented in this encounter Discharge Summaries Reynold Garcia MD - 05/27/2017 6:43 PM PDT Discharge Summaries by Reynold Garcia MD at 05/27/171842 Author: Reynold Garcia MD Service: Hospitalist Author Type: Physician Filed: 07/20/17 154 Date of Service: 05/27/171842 Status: Signed Malt House Supervisor: Reynold Garcia MD (Physician) I was informed by nursing that pt decided to leave AMA on 05/27/2017. This has been document ed and resident has been informed as well. I had a discussion by telephone later on the next day since pt was concerning about fever. I informed her that she can present back to the hospital to the ER if there's further concer n. reynold garcia documente d in this encounter Progress Notes Conversion Transaction, Provider Unknown - 05/27/2017 6:43 PM PDTFormatting of this note m ight be different from the original. Nurse Progress Note by Mesha Brown RN at 05/27/171842 Author: Mesha Brown RN Service: (none) Author Type: Registered Nurse Filed: 05/27/171849 Date of Service: 05/27/171842 Status: Signed Malt House Supervisor: Mesha Brown RN (Registered Nurse) Pt anxious, stating she received a phone call and she has an emergency at home. She pulled out her IV and was pulling her gown off. A friend in the room visited with patient and nurse , the patient stated "I just have to leave, you have my number, you can call me if its reall y bad". Nurse explained leaving AMA, pt still wanted to leave. Pt signed AMA and got on the elevator with friends. Dr. Delvin ahn, resident called back and RN notified him of patient le aving AMA. Mesha Brown RN 05/27/2017 6:50 PM onver ludwin Transaction, Provider Unknown - 05/27/2017 1:03 PM PDT Nurse Progress Note by Mesha Brown RN at 05/27/17 1303 Author: Mesha Brown RN Service: (none) Author Type: Registered Nurse Filed: 05/27/17 1304 Date of Service: 05/27/17 1303 Status: Signed Malt House Supervisor: Mesha Brown RN (Registered Nurse) Went to pt room to put on bloodless medicine band and patient not in room/on floor. Mesha Brown RN 05/27/2017 1:03 PM onver ludwin Transaction, Provider Unknown - 05/27/2017 10:45 AM PDT Case Management by Da Goode RN at 05/27/17 1045 Author: Da Goode RN Service: (none) Author Type: Registered Nurse Filed: 05/27/17 1059 Date of Service: 05/27/17 1045 Status: Signed Malt House Supervisor: Da Goode RN (Registered Nurse) 05/27/17 1042 Discharge Planning Evaluation Admitting Diagnosis Lower pack pain/abcess Readmission No Living Arrangements Children Support Systems Spouse/significant other;Children Type of Residence Private residence House type House 2 story Bathrooms on 1st Floor 1-Full Independent with ADL's Yes Independent with Mobility Yes Home Care Services No Caregiver after Discharge No Mental Status Oriented Prior functional status independant Power of Import Coordination And Production Head No Anticipated Discharge Plan Post Acute Care Needs None at this time Resources Financial concerns No Transportation issues No ( will transport) Patient/Family concerns No Prescription Plan Yes Name of Pharmacy [facility] phone number [phone] Previous home health equipment No Vascular access device No Ostomy/Drains/Appliances No Anticipated Disposition Facility Type Home Met with patient at bedside. Annabella is a 41 year old female with a history of anxiety/depre sssion, HTN, COPD, DM type 2, and IV drug use. She lives in [place], [place] with her daughter 2 6, and 14 year old twins. Her is currently getting a new house ready for them to mov e into and is active in their lives. Annabella went to [facility] for pelvic pain and spotting but left AMA while waiting for MR I results because she couldn't smoke. The hospital called her and recommended her to go to [facility] based on the MRI results. Patient is independent in all ADL's. Because of the IV drug use, sending her home with an I V line is not recommended is she needs outpatient IV abx. Patient's PCP is: Virginia Reddy MEMORANDUM STATEMENT CLERK Patient's insurance:[facility] [employer]ACHINE [employer]; [employer] Coverage concerns:no Medication coverage/concerns: no Community resources utilized / needed: TBD Assistance in transportation: not at this time Identification of any specific education / training: TBD Barriers to Discharge / Alternative housing needed: not at this time Anticipated DCP: Home DA GOODE RN Case Management [phone] orenalicja morley, Andre Marmolejo MD - 05/27/2017 9:46 AM PDT Progress Notes by Andre Alonso MD-R1 at 05/27/17 0946 Author: JIMENA [email or web address] Service: Hospitalist Author Type: Resident-Y1 Filed: 05/27/171900 Date of Service: 05/27/17945 Status: Attested Malt House Supervisor: JIMENA [email or web address] (Resident-Y1) Cosigner: Reynold Garcia MD at 05/31/17 1239 Attestation signed by Reynold Garcia MD at 05/31/17 1239 Pt encountered in room [address] Alonso. I agree with his progress note and i t's assessment and plans. Pt denies any numbness or tingling of the lower extremities. Denies loss of bowel or bladde r control. Pt has been having bleeding small amount intermittently; pt has IUD. H/o pump. Physical exam: Midline point tenderness on palpation. Problem list: L4-L5 right side facet joint inflammatory changes; Inflammatory facet arthritis and inflammatory changes is more likel y, versus infection. CRP has declined from 7.7 to 1[address]. Discussed with dr. J Carlos Gee and he recommends MRI repeat mid week if there's further concern. I reviewed in person and Discuss ed with dr. Arora of radiology and he noted that there's no fluid collection that can be a ccessed or the risks outweighs the benefits at this time. I also discussed with dr. Santacruz and she recommends monitor blood cultures for 48 hrs prior to discharge. No antibiotics at this time. Back pain; continue with scheduled ibuprofen for 2 days only concurrently with fentanyl IV. Pt is agreeable to this at this time. Will not start opioids and not IV dilaudid in the setting of potential addiction and compli cations. Pt is not a candidate for IV opioids use during this hospitalization due to abuse p otential and shelter side effects. I anticipate that pt may not be happy during this hospi yuridia stay for this reason. I recommend risk management to see pt proactively. 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 [facility] Service: Hospitalist Progress Note Hospital Day: LOS: 0 days Post-Op Day: * No surgery found * SUBJECTIVE Patient Summary: the patient is a 41-year-old female with significant past medical h istory of type II diabetes, hypertension, gastroesophageal reflux disease, depression, IV dr hawa goldsmith who is a transfer from [facility] for further evaluation. Events Overnight: The patient is having significant pain rated 7/10 in the lower back. She is not currently incontinent and also denies saddle paresthesia/numbness. She has motor function of the lower extremities. She is producing urine and had her last bowel movement y . Review of Systems Constitutional: Positive for malaise/fatigue. Genitourinary: Negative for dysuria. Musculoskeletal: Positive for myalgias and back pain. Neurological: Negative for sensory change. Negative for numbness in the saddle area. Scheduled Medications ALPRAZolam 1 mg Oral BID amitriptyline 100 mg Oral Nightly insulin lispro (human) 0-3 Units Subcutaneous Nightly insulin lispro (human) 0-6 Units Subcutaneous TID AC lidocaine buffered 1% 0.5 mL Intradermal Once losartan 100 mg Oral Daily naproxen 500 mg Oral BID WC pantoprazole 40 mg Oral QAM AC [START ON 05/28/2017] pneumococcal 23-valent vaccine 0.5 mL Intramuscular Once Immunizat ion Continuous Infusions dextrose sodium chloride (IV) 110 mL/hr at 05/27/17 0535 PRN Medications acetaminophen OR acetaminophen, dextrose, dextrose, dextrose, fentaNYL OR fentaNYL, glucagon, glucagon, ondansetron OR ondansetron, polyethylene glycol, zolpidem OBJECTIVE Vital Signs: BP 118/70 mmHg | Pulse 69 | Temp(Src) 98 F (36.7 C) (Oral) | Resp 18 | Ht 1.676 m (5' 6 ") | Wt 121 kg (266 lb 12.1 oz) | BMI 43.08 kg/m2 | SpO2 92% Physical Exam: General Appearance: Lethargic following asleep during exam and interview. Obese with Body m ass index is 43.08 kg/(m^2). HEENT: Normocephalic, atraumatic, pupils EOMI, pupils equal and reactive to light bilateral ly. Nose: no septal deviation or discharge noted. Ears: normal size, location, and contour. Throat dry and without exudates. NECK: is supple, full ROM, nontender. LUNGS: relatively clear to auscultation bilaterally with no obvious wheezing, No rales or r honchi audible. HEART: S1S2, Regular rate and rhythm without murmurs, gallops or rubs. ABDOMEN: Obese, Bowel sound is normoactive, abdomen is soft, non-tender non-distended ,no m ass palpable. EXTREMITIES: Muscle strength adequate bilaterally. NEURO: Cranial Nerves 2-12 appears intact, Gait not tested, PSYCH: Lethargic but oriented 3. DATA Recent Labs Lab 05/27/17 0616 05/27/17 0316 WBC 7.23 7.45 RBC 4.04 4.25 HCT 36.2 36.4 MCV 89.4 85.8 MCH 29.1 28.9 MCHC 32.6 33.7 RDW 51.2 52.5 PLT 124* 132* MPV 10.4 9.8 DIFFTYPE AUTOMATED AUTOMATED Recent Labs Lab 05/27/17 0616 05/27/17 0316 K 4.0 4.0 CL 107 106 CO2 26 26 ANIONGAP 10 10 GLUF 86 83 BUN 8 8 CREATININE 0.7 0.78 BCR 11 10 CA 8.5 7.6* PROT -- 7.2 ALB -- 3.2* GLOB -- 4.1 BILITOT -- 0.4 ALP -- 61 AST -- 33 ALT -- 43 EGFR >60 >60 BMP: Recent Labs Lab 05/27/17 0616 05/27/17 0316 NA 139 139 K 4.0 4.0 CL 107 106 CO2 26 26 ANIONGAP 10 10 GLUF 86 83 BUN 8 8 CREATININE 0.7 0.78 BCR 11 10 CA 8.5 7.6* EGFR >60 >60 Recent Labs Lab 05/27/17 0616 MG 2.3 Recent Labs Lab 05/27/17 0616 05/27/17 0316 APTT 27 27 INR 1.0 1.0 Recent Labs Lab 05/27/17 0316 CKTOTAL 43 CKMBINDEX UNABLE TO CALCULATE PROBLEM LIST Principal Problem: Acute low back pain Active Problems: IV drug abuse Type 2 diabetes mellitus (HCC) Essential hypertension, benign Anxiety and depression Chronic pain Abnormal vaginal bleeding ASSESSMENT & PLAN The patient is a 41-year-old female with significant past history of diabetes type II, hype rtension, gastroesophageal reflux disease, anxiety, IV drug abuse who was transferred from [facility] in [place], [place] for further evaluation of suspicious lumbar MRI. Principal Problem: Acute low back pain Acute on chronic. The patient is having pain in the lower area of the does not radiate. She does not have red flag warning signs of active pain at this time. Reviewed MRI showing smal l inflammation/edema of soft tissue surrounding L4-L5 which is suspicious for an abscess. Le ludwin is too small for percutaneous drainage of this time. Active Problems: IV drug abuse Counseled for cessation. We will continue to monitor for withdrawals. Type 2 diabetes mellitus (HCC) Continue diabetic diet. Last hemoglobin A1c was 5.7% indicating good glucose control. Essential hypertension, benign Well-controlled. Continue to monitor routine vital signs. Continue losartan 100 mg daily. Anxiety and depression Continue amitriptyline 100 mg nightly. Continue alprazolam 1 mg 2 times daily. Chronic pain The patient has chronic back pain in the setting of current IV drug abuse (heroin) with las t use yesterday. Abnormal vaginal bleeding Patient has had abnormal vaginal bleeding for the past 2-3 weeks. IUD was placed approximat hemal 3 years ago. We are recommending that she follows up with her primary care provider or g ynecologist for further evaluation. Deep vein thrombosis prophylaxis Continue Lovenox 40 mg daily. Disposition: inpatient Code Status: Full Code Andre Alonso MD-R1 05/27/2017 onversion Tra nsaction, Provider Unknown - 05/27/2017 6:34 AM PDTFormatting of this note might be differe nt from the original. Progress Notes by Cathy Garcia RN at 05/27/17633 Author: Cathy Garcia RN Service: (none) Author Type: Registered Nurse Filed: 05/27/17635 Date of Service: 05/27/17633 Status: Signed Malt House Supervisor: Cathy Garcia RN (Registered Nurse) Contacted [facility]. Will fax over current microbiology GC test along with most current wound culture results. onver ludwin Transaction, Provider Unknown - 05/27/2017 5:15 AM PDT Progress Notes by Remy Trinidad RPH at 05/27/17514 Author: Remy Trinidad RPH Service: Pharmacy Author Type: Pharmacist Filed: 05/27/17514 Date of Service: 05/27/17514 Status: Signed Malt House Supervisor: Remy Trinidad RPH (Pharmacist) Note ccl 125.9ml/min meds reviewed Pharmacy will follow rdc 0515 docume nted in this encounter Plan of Treatment Not on filedocumented as of this encounter Procedures + +--------+ + + + | Procedure Name | Priori | Date/Time | Associated Diagnosis | Comments | | | ty | | | | + +--------+ + + + | MRSA NAAT | Timed | 05/27/2017 | | Results for this | | | | 5:18 PM | | procedure are in the | | | | PDT | | results section. | + +--------+ + + + | POC GLUCOSE | Routin | 05/27/2017 | | Results for this | | | e | 4:36 PM | | procedure are in the | | | | PDT | | results section. | + +--------+ + + + | POC GLUCOSE | Routin | 05/27/2017 | | Results for this | | | e | 11:54 AM | | procedure are in the | | | | PDT | | results section. | + +--------+ + + + | URINALYSIS WITH | Routin | 05/27/2017 | | Results for this | | MICROSCOPIC WITH | e | 7:40 AM | | procedure are in the | | CULTURE IF INDICATED | | PDT | | results section. | + +--------+ + + + | EXTERNAL LAB: CBC | Routin | 05/27/2017 | | Results for this | | | e | 6:16 AM | | procedure are in the | | | | PDT | | results section. | + +--------+ + + + | PTT | Routin | 05/27/2017 | | Results for this | | | e | 6:16 AM | | procedure are in the | | | | PDT | | results section. | + +--------+ + + + | PROTIME INR | Routin | 05/27/2017 | | Results for this | | | e | 6:16 AM | | procedure are in the | | | | PDT | | results section. | + +--------+ + + + | PHOSPHORUS | Routin | 05/27/2017 | | Results for this | | | e | 6:16 AM | | procedure are in the | | | | PDT | | results section. | + +--------+ + + + | MAGNESIUM | Routin | 05/27/2017 | | Results for this | | | e | 6:16 AM | | procedure are in the | | | | PDT | | results section. | + +--------+ + + + | HEMOGLOBIN A1C | Routin | 05/27/2017 | | Results for this | | | e | 6:16 AM | | procedure are in the | | | | PDT | | results section. | + +--------+ + + + | BASIC METABOLIC | Routin | 05/27/2017 | | Results for this | | PANEL | e | 6:16 AM | | procedure are in the | | | | PDT | | results section. | + +--------+ + + + | POC GLUCOSE | Routin | 05/27/2017 | | Results for this | | | e | 5:36 AM | | procedure are in the | | | | PDT | | results section. | + +--------+ + + + | DRUGS OF ABUSE | Routin | 05/27/2017 | | Results for this | | SCREEN, URINE (H) | e | 4:45 AM | | procedure are in the | | | | PDT | | results section. | + +--------+ + + + | CULTURE, BLOOD, 2ND | STAT | 05/27/2017 | | Results for this | | SPECIMEN (NON-ORD) | | 3:18 AM | | procedure are in the | | | | PDT | | results section. | + +--------+ + + + | LACTIC ACID | Routin | 05/27/2017 | | Results for this | | | e | 3:17 AM | | procedure are in the | | | | PDT | | results section. | + +--------+ + + + | HISTORICAL LAB PANEL | Routin | 05/27/2017 | | Results for this | | RESULT | e | 3:16 AM | | procedure are in the | | | | PDT | | results section. | + +--------+ + + + | SEDIMENTATION RATE, | Routin | 05/27/2017 | | Results for this | | AUTOMATED | e | 3:16 AM | | procedure are in the | | | | PDT | | results section. | + +--------+ + + + | C-REACTIVE PROTEIN | Routin | 05/27/2017 | | Results for this | | | e | 3:16 AM | | procedure are in the | | | | PDT | | results section. | + +--------+ + + + | , SERUM, | Routin | 05/27/2017 | | Results for this | | QUAL | e | 3:16 AM | | procedure are in the | | | | PDT | | results section. | + +--------+ + + + | CULTURE, BLOOD | STAT | 05/27/2017 | | Results for this | | | | 3:15 AM | | procedure are in the | | | | PDT | | results section. | + +--------+ + + + | URINALYSIS, REFLEX | Routin | 05/27/2017 | | Results for this | | MICROSCOPIC AND/OR | e | 2:00 AM | | procedure are in the | | CULTURE | | PDT | | results section. | + +--------+ + + + | MRI LUMBAR SPINE W | Routin | 05/26/2017 | | Results for this | | WO CONTRAST | e | 1:25 PM | | procedure are in the | | | | PDT | | results section. | + +--------+ + + + documented in this encounter Results MRSA NAAT (05/27/2017 5:18 PM PDT) + + | Specimen | + + | | + + + + + | Narrative | Performed At | + + + | SOURCE NARES(NOSE) MRSA | EXTERNAL LAB | | PCR NEGATIVE Testing | | | performed at [facility];[address] [place] [address];[place] [address] | | + + + + +---------+ + + | Performing | Address | City/State/Zipcode | Phone Number | | Organization | | | | + +---------+ + + | EXTERNAL LAB | | | | + +---------+ + + POC Glucose (05/27/2017 4:36 PM PDT) + + + + + + | Component | Value | Ref Range | Performed | Pathologist | | | | | At | Signature | + + + + + + | Glucose, | 92Comment: Testing | 65 - 99 mg/dL | EXTERNAL | | | Fingerstick | performed at [facility];[address] | | LAB | | | | [address];[place] | | | | | | [address] | | | | + + + + + + + + | Specimen | + + | | + + + +---------+ + + | Performing | Address | City/State/Zipcode | Phone Number | | Organization | | | | + +---------+ + + | EXTERNAL LAB | | | | + +---------+ + + POC Glucose (05/27/2017 11:54 AM PDT) + + + + + + | Component | Value | Ref Range | Performed | Pathologist | | | | | At | Signature | + + + + + + | Glucose, | 141 (H)Comment: Testing | 65 - 99 mg/dL | EXTERNAL | | | Fingerstick | performed at [facility];[address] | | LAB | | | | [address];[place], [place] | | | | | | [address] | | | | + + + + + + + + | Specimen | + + | | + + + +---------+ + + | Performing | Address | City/State/Zipcode | Phone Number | | Organization | | | | + +---------+ + + | EXTERNAL LAB | | | | + +---------+ + + Urinalysis with Microscopic with Culture if Indicated (05/27/2017 7:40 AM PDT) + + + + + + | Component | Value | Ref Range | Performed | Pathologist | | | | | At | Signature | + + + + + + | Color | STRAW | | EXTERNAL | | | | | | LAB | | + + + + + + | Clarity | CLEAR | | EXTERNAL | | | | | | LAB | | + + + + + + | Specific | 1.004 | 1.002 - 1.030 | EXTERNAL | | | [place] | | | LAB | | + + + + + + | Leukocyte | NEGATIVE | | EXTERNAL | | | Esterase, | | | LAB | | | Urine | | | | | + + + + + + | Nitrite, | NEGATIVE | | EXTERNAL | | | Urine | | | LAB | | + + + + + + | Urobilinoge | NORMAL | mg/dL | EXTERNAL | | | n, Urine | | | LAB | | + + + + + + | Protein, | NEGATIVE | mg/dL | EXTERNAL | | | Urine | | | LAB | | + + + + + + | pH, Urine | 5.0 | 5.0 - 8.0 | EXTERNAL | | | | | | LAB | | + + + + + + | Blood, | NEGATIVE | | EXTERNAL | | | Urine | | | LAB | | + + + + + + | Ketones | NEGATIVE | mg/dL | EXTERNAL | | | | | | LAB | | + + + + + + | Bilirubin, | NEGATIVE | | EXTERNAL | | | Urine | | | LAB | | + + + + + + | Glucose, | NEGATIVE | mg/dL | EXTERNAL | | | Urine | | | LAB | | + + + + + + | WBC, UA | 0-2 | 0 - 5 /hpf | EXTERNAL | | | | | | LAB | | + + + + + + | RBC, UA | 0-2 | 0 - 5 /hpf | EXTERNAL | | | | | | LAB | | + + + + + + | Epithelial | 3-5 | /lpf | EXTERNAL | | | Cells | | | LAB | | + + + + + + | Bacteria, | 1+ (A) | | EXTERNAL | | | UA | | | LAB | | + + + + + + | Transitiona | 0-2Comment: Testing | /hpf | EXTERNAL | | | l squamous | performed at [facility], [address] | | LAB | | | [address]helia, | [address], | | | | | UA | [place] [address] | | | | + + + + + + + + | Specimen | + + | Urine specimen | | (specimen) | + + + +---------+ + + | Performing | Address | City/State/Zipcode | Phone Number | | Organization | | | | + +---------+ + + | EXTERNAL LAB | | | | + +---------+ + + PTT (05/27/2017 6:16 AM PDT) + + + + + + | Component | Value | Ref Range | Performed | Pathologist | | | | | At | Signature | + + + + + + | aPTT, | 27Comment: Testing | 23 - 32 seconds | EXTERNAL | | | Patient | performed at [facility] | | LAB | | | | [address];[place], [place] | | | | | | [address] | | | | + + + + + + + + | Specimen | + + | Blood specimen | | (specimen) | + + + +---------+ + + | Performing | Address | City/State/Zipcode | Phone Number | | Organization | | | | + +---------+ + + | EXTERNAL LAB | | | | + +---------+ + + Protime INR (05/27/2017 6:16 AM PDT) + + + + + + | Component | Value | Ref Range | Performed | Pathologist | | | | | At | Signature | + + + + + + | INR | 1.0Comment: REFERENCE | | EXTERNAL | | | | RANGE:0.9 - 1.2 | | LAB | | | | NON-ANTICOAGULATED2.0 | | | | | | - 3.0 ALL OTHER | | | | | | THERAPEUTIC | | | | | | INDICATIONS2.5 - 3.5 | | | | | | MECHANICAL HEART VALVES, | | | | | | RECURRENT OR SYSTEMIC | | | | | | EMBOLISMTesting | | | | | | performed at [facility];[address] | | | | | | [address];[place], [place] | | | | | | [address] | | | | + + + + + + + + | Specimen | + + | Blood specimen | | (specimen) | + + + +---------+ + + | Performing | Address | City/State/Zipcode | Phone Number | | Organization | | | | + +---------+ + + | EXTERNAL LAB | | | | + +---------+ + + External Lab: CBC (05/27/2017 6:16 AM PDT) + + + + + + | Component | Value | Ref Range | Performed | Pathologist | | | | | At | Signature | + + + + + + | WBC | 7.23 | 3.80 - 11.00 | EXTERNAL | | | | | K/uL | LAB | | + + + + + + | RED CELL | 4.04 | 3.70 - 5.10 | EXTERNAL | | | COUNT | | M/uL | LAB | | + + + + + + | Hgb | 11.8 | 11.3 - 15.5 | EXTERNAL | | | | | g/dL | LAB | | + + + + + + | Hematocrit, | 36.2 | 34.0 - 46.0 % | EXTERNAL | | | POC | | | LAB | | + + + + + + | MCV | 89.4 | 80.0 - 100.0 fl | EXTERNAL | | | | | | LAB | | + + + + + + | MCH | 29.1 | 27.0 - 34.0 pg | EXTERNAL | | | | | | LAB | | + + + + + + | MCHC | 32.6 | 32.0 - 35.5 | EXTERNAL | | | | | g/dL | LAB | | + + + + + + | RDW-CV | 51.2 | 37 - 53 fl | EXTERNAL | | | | | | LAB | | + + + + + + | Platelet | 124 (L) | 150 - 400 K/uL | EXTERNAL | | | Count | | | LAB | | | Plasma | | | | | + + + + + + | MPV | 10.4 | fl | EXTERNAL | | | | | | LAB | | + + + + + + | Differentia | AUTOMATED | | EXTERNAL | | | l Type | | | LAB | | + + + + + + | % Segmented | 47.89 | % | EXTERNAL | | | | | | LAB | | | Neutrophils | | | | | + + + + + + | % | 42.44 | % | EXTERNAL | | | Lymphocytes | | | LAB | | + + + + + + | % Monocytes | 6.41 | % | EXTERNAL | | | | | | LAB | | + + + + + + | % | 2.84 | % | EXTERNAL | | | Eosinophils | | | LAB | | + + + + + + | % Basophils | 0.42 | % | EXTERNAL | | | | | | LAB | | + + + + + + | Absolute | 3.46 | 1.90 - 7.40 | EXTERNAL | | | Segmented | | K/uL | LAB | | | Neutrophils | | | | | + + + + + + | Absolute | 3.07 | 1.00 - 3.90 | EXTERNAL | | | Lymphocytes | | K/uL | LAB | | + + + + + + | Absolute | 0.46 | 0.00 - 0.80 | EXTERNAL | | | Monocytes | | K/uL | LAB | | + + + + + + | Absolute | 0.21 | 0.00 - 0.50 | EXTERNAL | | | Eosinophils | | K/uL | LAB | | + + + + + + | Absolute | 0.03Comment: Testing | 0.00 - 0.10 | EXTERNAL | | | Basophils | performed at [facility], [address] | K/uL | LAB | | | | [address], | | | | | | [place] [address] | | | | + + + + + + + + | Specimen | + + | Blood specimen | | (specimen) | + + + +---------+ + + | Performing | Address | City/State/Zipcode | Phone Number | | Organization | | | | + +---------+ + + | EXTERNAL LAB | | | | + +---------+ + + Phosphorus (05/27/2017 6:16 AM PDT) + + + + + + | Component | Value | Ref Range | Performed | Pathologist | | | | | At | Signature | + + + + + + | PHOSPHORUS | 3.5Comment: Testing | 2.3 - 4.8 mg/dL | EXTERNAL | | | | performed at [facility], [address] | | LAB | | | | [address], | | | | | | [place] [address] | | | | + + + + + + + + | Specimen | + + | Blood specimen | | (specimen) | + + + +---------+ + + | Performing | Address | City/State/Zipcode | Phone Number | | Organization | | | | + +---------+ + + | EXTERNAL LAB | | | | + +---------+ + + Magnesium (05/27/2017 6:16 AM PDT) + + + + + + | Component | Value | Ref Range | Performed | Pathologist | | | | | At | Signature | + + + + + + | Magnesium | 2.3Comment: Testing | 1.7 - 2.4 mg/dL | EXTERNAL | | | | performed at [facility], [address] | | LAB | | | | [address], | | | | | | [place] [address] | | | | + + + + + + + + | Specimen | + + | Blood specimen | | (specimen) | + + + +---------+ + + | Performing | Address | City/State/Zipcode | Phone Number | | Organization | | | | + +---------+ + + | EXTERNAL LAB | | | | + +---------+ + + Hemoglobin A1C (05/27/2017 6:16 AM PDT) + + + + + + | Component | Value | Ref Range | Performed | Pathologist | | | | | At | Signature | + + + + + + | Hemoglobin | 5.7Comment: The [place] | 4.0 - 6.0 % | EXTERNAL | | | A1c | Diabetes Association | | LAB | | | | considers a hemoglobin | | | | | | A1c result of <7.0% to | | | | | | be the goal of diabetic | | | | | | therapy. When results | | | | | | are consistently >8.0%, | | | | | | the ADA suggests | | | | | | reevaluation of the | | | | | | treatment regimen. The | | | | | | testing method used is | | | | | | certified traceable to | | | | | | the Diabetes Control and | | | | | | Complications Trial | | | | | | reference method. | | | | + + + + + + | Glycohemogl | 117Comment: The ADA | mg/dL | EXTERNAL | | | obin | considers an eAG result | | LAB | | | (GHb),Total | of LT 154 mg/dL to be | | | | | | the goal of diabetic | | | | | | therapy. Estimated | | | | | | Average Glucose | | | | | | calculated from | | | | | | hemoglobin A1c by use of | | | | | | the ADA recommended | | | | | | formula.Testing | | | | | | performed at [facility], [address] | | | | | | [facility], | | | | | | [place] [address] | | | | + + + + + + + + | Specimen | + + | Blood specimen | | (specimen) | + + + +---------+ + + | Performing | Address | City/State/Zipcode | Phone Number | | Organization | | | | + +---------+ + + | EXTERNAL LAB | | | | + +---------+ + + Basic Metabolic Panel (05/27/2017 6:16 AM PDT) + + + + + + | Component | Value | Ref Range | Performed | Pathologist | | | | | At | Signature | + + + + + + | Na | 139 | 135 - 145 | EXTERNAL | | | | | mmol/L | LAB | | + + + + + + | K | 4.0 | 3.5 - 4.9 | EXTERNAL | | | | | mmol/L | LAB | | + + + + + + | Cl | 107 | 99 - 109 mmol/L | EXTERNAL | | | | | | LAB | | + + + + + + | CO2 | 26 | 23 - 32 mmol/L | EXTERNAL | | | | | | LAB | | + + + + + + | Anion Gap | 10 | 5 - 20 mmol/L | EXTERNAL | | | | | | LAB | | + + + + + + | Glucose, | 86 | 65 - 99 mg/dL | EXTERNAL | | | Fasting | | | LAB | | + + + + + + | BUN | 8 | 8 - 25 mg/dL | EXTERNAL | | | | | | LAB | | + + + + + + | Creatinine | 0.7 | 0.50 - 1.00 | EXTERNAL | | | | | mg/dL | LAB | | + + + + + + | BUN/Creatin | 11 | | EXTERNAL | | | ine Ratio | | | LAB | | + + + + + + | Calcium | 8.5 | 8.5 - 10.5 | EXTERNAL | | | | | mg/dL | LAB | | + + + + + + | Estimated | >60Comment: GFR <60: | mL/min/1.73m2 | EXTERNAL | | | GFR | CHRONIC KIDNEY DISEASE, | | LAB | | | | IF FOUND OVER A 3 MONTH | | | | | | PERIOD.GFR <15: KIDNEY | | | | | | FAILURE.FOR | | | | | | AMERICANS, MULTIPLY THE | | | | | | CALCULATED GFR BY | | | | | | 1.210.Testing performed | | | | | | at [facility], [address] | | | | | | [address], | | | | | | [place] [address] | | | | + + + + + + + + | Specimen | + + | Blood specimen | | (specimen) | + + + +---------+ + + | Performing | Address | City/State/Zipcode | Phone Number | | Organization | | | | + +---------+ + + | EXTERNAL LAB | | | | + +---------+ + + POC Glucose (05/27/2017 5:36 AM PDT) + + + + + + | Component | Value | Ref Range | Performed | Pathologist | | | | | At | Signature | + + + + + + | Glucose, | 94Comment: Testing | 65 - 99 mg/dL | EXTERNAL | | | Fingerstick | performed at [facility];[address] | | LAB | | | | [address];[place] | | | | | | [address] | | | | + + + + + + + + | Specimen | + + | | + + + +---------+ + + | Performing | Address | City/State/Zipcode | Phone Number | | Organization | | | | + +---------+ + + | EXTERNAL LAB | | | | + +---------+ + + Drugs Of ABuse Screen, Urine (H) (05/27/2017 4:45 AM PDT) + + + + + + | Component | Value | Ref Range | Performed | Pathologist | | | | | At | Signature | + + + + + + | Methampheta | NEGATIVEComment: | | EXTERNAL | | | mine/ | Positive cutoff for AMP | | LAB | | | Amphetamine | = 1000 ng/mL | | | | | Screen, | | | | | | UA, POC | | | | | + + + + + + | Barbiturate | NEGATIVEComment: | | EXTERNAL | | | s Screen, | Positive cutoff for FILIBERTO | | LAB | | | Urine | = 200 ng/mL | | | | + + + + + + | Benzodiazep | POSITIVE (A)Comment: | | EXTERNAL | | | paul | Positive cutoff for | | LAB | | | Screen, | BENZO = 200 ng/mL | | | | | Urine | | | | | + + + + + + | Cocaine | NEGATIVEComment: | | EXTERNAL | | | | Positive cutoff for YEIMY | | LAB | | | | = 300 ng/mL | | | | + + + + + + | Methadone | NEGATIVEComment: | | EXTERNAL | | | | Positive cutoff for MTD | | LAB | | | | = 300 ng/mL | | | | + + + + + + | Opiates | POSITIVE (A)Comment: | | EXTERNAL | | | | Positive cutoff for OPI | | LAB | | | | = 300 ng/mL | | | | + + + + + + | PCP | NEGATIVEComment: | | EXTERNAL | | | | Positive cutoff for PCP | | LAB | | | | = 25 ng/mL | | | | + + + + + + | Cannabinoid | NEGATIVEComment: | | EXTERNAL | | | s Screen, | Positive cutoff for | | LAB | | | Serum | THC = 50 ng/mLThe above | | | | | | are unconfirmed | | | | | | screening results. | | | | | | These results are to | | | | | | be used only for medical | | | | | | (i.e.,treatment) | | | | | | purposes. Unconfirmed | | | | | | screening results must | | | | | | not be used for | | | | | | non-medical purposes | | | | | | (e.g., employment | | | | | | testing, legal | | | | | | testing).Testing | | | | | | performed at [facility];[address] | | | | | | [address];[place], [place] | | | | | | [address] | | | | + + + + + + + + | Specimen | + + | | + + + +---------+ + + | Performing | Address | City/State/Zipcode | Phone Number | | Organization | | | | + +---------+ + + | EXTERNAL LAB | | | | + +---------+ + + Culture, Blood, 2nd Specimen (05/27/2017 3:18 AM PDT) + + | Specimen | + + | Blood specimen | | (specimen) | + + + + + | Narrative | Performed At | + + + | Specimen Description BLOOD CULTURE | EXTERNAL LAB | | NO GROWTH 6 DAYS | | + + + + +---------+ + + | Performing | Address | City/State/Zipcode | Phone Number | | Organization | | | | + +---------+ + + | EXTERNAL LAB | | | | + +---------+ + + Lactic Acid (05/27/2017 3:17 AM PDT) + + + + + + | Component | Value | Ref Range | Performed | Pathologist | | | | | At | Signature | + + + + + + | Lactate | 0.4Comment: Testing | 0.4 - 2.0 | EXTERNAL | | | | performed at [facility];[address] | mmol/L | LAB | | | | [address];[place], [place] | | | | | | [address] | | | | + + + + + + + + | Specimen | + + | Blood specimen | | (specimen) | + + + +---------+ + + | Performing | Address | City/State/Zipcode | Phone Number | | Organization | | | | + +---------+ + + | EXTERNAL LAB | | | | + +---------+ + + HISTORICAL LAB PANEL RESULT (05/27/2017 3:16 AM PDT) + + + + + + | Component | Value | Ref Range | Performed | Pathologist | | | | | At | Signature | + + + + + + | WBC | 7.45 | 3.80 - 11.00 | EXTERNAL | | | | | K/uL | LAB | | + + + + + + | RED CELL | 4.25 | 3.70 - 5.10 | EXTERNAL | | | COUNT | | M/uL | LAB | | + + + + + + | Hgb | 12.3 | 11.3 - 15.5 | EXTERNAL | | | | | g/dL | LAB | | + + + + + + | Hematocrit, | 36.4 | 34.0 - 46.0 % | EXTERNAL | | | POC | | | LAB | | + + + + + + | MCV | 85.8 | 80.0 - 100.0 fl | EXTERNAL | | | | | | LAB | | + + + + + + | MCH | 28.9 | 27.0 - 34.0 pg | EXTERNAL | | | | | | LAB | | + + + + + + | MCHC | 33.7 | 32.0 - 35.5 | EXTERNAL | | | | | g/dL | LAB | | + + + + + + | RDW-CV | 52.5 | 37 - 53 fl | EXTERNAL | | | | | | LAB | | + + + + + + | Platelet | 132 (L) | 150 - 400 K/uL | EXTERNAL | | | Count | | | LAB | | | Plasma | | | | | + + + + + + | MPV | 9.8 | fl | EXTERNAL | | | | | | LAB | | + + + + + + | Differentia | AUTOMATED | | EXTERNAL | | | l Type | | | LAB | | + + + + + + | % Segmented | 50.84 | % | EXTERNAL | | | | | | LAB | | | Neutrophils | | | | | + + + + + + | % | 40.37 | % | EXTERNAL | | | Lymphocytes | | | LAB | | + + + + + + | % Monocytes | 5.58 | % | EXTERNAL | | | | | | LAB | | + + + + + + | % | 2.58 | % | EXTERNAL | | | Eosinophils | | | LAB | | + + + + + + | % Basophils | 0.63 | % | EXTERNAL | | | | | | LAB | | + + + + + + | Absolute | 3.79 | 1.90 - 7.40 | EXTERNAL | | | Segmented | | K/uL | LAB | | | Neutrophils | | | | | + + + + + + | Absolute | 3.01 | 1.00 - 3.90 | EXTERNAL | | | Lymphocytes | | K/uL | LAB | | + + + + + + | Absolute | 0.42 | 0.00 - 0.80 | EXTERNAL | | | Monocytes | | K/uL | LAB | | + + + + + + | Absolute | 0.19 | 0.00 - 0.50 | EXTERNAL | | | Eosinophils | | K/uL | LAB | | + + + + + + | Absolute | 0.05 | 0.00 - 0.10 | EXTERNAL | | | Basophils | | K/uL | LAB | | + + + + + + | RBC | RBC AND PLT MORPHOLOGY | | EXTERNAL | | | Morphology | APPEAR NORMAL | | LAB | | + + + + + + | Platelet | DECREASED | | EXTERNAL | | | Estimate | | | LAB | | + + + + + + | Na | 139 | 135 - 145 | EXTERNAL | | | | | mmol/L | LAB | | + + + + + + | K | 4.0 | 3.5 - 4.9 | EXTERNAL | | | | | mmol/L | LAB | | + + + + + + | Cl | 106 | 99 - 109 mmol/L | EXTERNAL | | | | | | LAB | | + + + + + + | CO2 | 26 | 23 - 32 mmol/L | EXTERNAL | | | | | | LAB | | + + + + + + | Anion Gap | 10 | 5 - 20 mmol/L | EXTERNAL | | | | | | LAB | | + + + + + + | Glucose, | 83 | 65 - 99 mg/dL | EXTERNAL | | | Fasting | | | LAB | | + + + + + + | BUN | 8 | 8 - 25 mg/dL | EXTERNAL | | | | | | LAB | | + + + + + + | Creatinine | 0.78 | 0.50 - 1.00 | EXTERNAL | | | | | mg/dL | LAB | | + + + + + + | BUN/Creatin | 10 | | EXTERNAL | | | ine Ratio | | | LAB | | + + + + + + | Calcium | 7.6 (L) | 8.5 - 10.5 | EXTERNAL | | | | | mg/dL | LAB | | + + + + + + | Protein, | 7.2 | 6.3 - 8.2 g/dL | EXTERNAL | | | Total | | | LAB | | + + + + + + | Albumin | 3.2 (L) | 3.6 - 5.0 g/dL | EXTERNAL | | | | | | LAB | | + + + + + + | Globulin | 4.1 | 1.3 - 4.9 g/dL | EXTERNAL | | | | | | LAB | | + + + + + + | A/G Ratio | 0.8 (L) | 1.0 - 2.4 | EXTERNAL | | | | | | LAB | | + + + + + + | Bilirubin | 0.4 | 0.1 - 1.5 mg/dL | EXTERNAL | | | Total | | | LAB | | + + + + + + | ALP, | 61 | 35 - 115 U/L | EXTERNAL | | | External | | | LAB | | + + + + + + | AST | 33 | 10 - 45 U/L | EXTERNAL | | | | | | LAB | | + + + + + + | ALT | 43 | 10 - 65 U/L | EXTERNAL | | | | | | LAB | | + + + + + + | Estimated | >60Comment: GFR <60: | mL/min/1.73m2 | EXTERNAL | | | GFR | CHRONIC KIDNEY DISEASE, | | LAB | | | | IF FOUND OVER A 3 MONTH | | | | | | PERIOD.GFR <15: KIDNEY | | | | | | FAILURE.FOR | | | | | | AMERICANS, MULTIPLY THE | | | | | | CALCULATED GFR BY 1.210. | | | | | | | | | | + + + + + + | CK, Total | 43 | 30 - 240 U/L | EXTERNAL | | | | | | LAB | | + + + + + + | INR | 1.0Comment: REFERENCE | | EXTERNAL | | | | RANGE:0.9 - 1.2 | | LAB | | | | NON-ANTICOAGULATED2.0 | | | | | | - 3.0 ALL OTHER | | | | | | THERAPEUTIC | | | | | | INDICATIONS2.5 - 3.5 | | | | | | MECHANICAL HEART VALVES, | | | | | | RECURRENT OR SYSTEMIC | | | | | | EMBOLISM | | | | + + + + + + | aPTT, | 27 | 23 - 32 seconds | EXTERNAL | | | Patient | | | LAB | | + + + + + + | CK-MB | <1.0 | 0.5 - 3.6 ng/mL | EXTERNAL | | | | | | LAB | | + + + + + + | CK-MB Index | UNABLE TO | | EXTERNAL | | | | CALCULATEComment: | | LAB | | | | Testing performed at | | | | | | [facility];[address] [place] [address] | | | | | | Blvd;[place] [address] | | | | + + + + + + + + | Specimen | + + | | + + + +---------+ + + | Performing | Address | City/State/Zipcode | Phone Number | | Organization | | | | + +---------+ + + | EXTERNAL LAB | | | | + +---------+ + + Sedimentation rate, automated (05/27/2017 3:16 AM PDT) + + + + + + | Component | Value | Ref Range | Performed | Pathologist | | | | | At | Signature | + + + + + + | Sed Rate | 23 (H)Comment: Testing | 0 - 20 mm/Hr | EXTERNAL | | | | performed at [facility];[address] | | LAB | | | | [address];[place], [place] | | | | | | [address] | | | | + + + + + + + + | Specimen | + + | Blood specimen | | (specimen) | + + + +---------+ + + | Performing | Address | City/State/Zipcode | Phone Number | | Organization | | | | + +---------+ + + | EXTERNAL LAB | | | | + +---------+ + + C-Reactive Protein (05/27/2017 3:16 AM PDT) + + + + + + | Component | Value | Ref Range | Performed | Pathologist | | | | | At | Signature | + + + + + + | CRP | 1.7 (H)Comment: Testing | mg/dL | EXTERNAL | | | | performed at [facility] | | LAB | | | | [address];[place], [place] | | | | | | [address] | | | | + + + + + + + + | Specimen | + + | Blood specimen | | (specimen) | + + + +---------+ + + | Performing | Address | City/State/Zipcode | Phone Number | | Organization | | | | + +---------+ + + | EXTERNAL LAB | | | | + +---------+ + + , Serum, Qual (05/27/2017 3:16 AM PDT) + + + + + + | Component | Value | Ref Range | Performed | Pathologist | | | | | At | Signature | + + + + + + | HCG | NEGATIVEComment: Testing | | EXTERNAL | | | QUALITATIVE | performed at [facility] | | LAB | | | | [address] [facility];[place], [place] | | | | | | [address] | | | | + + + + + + + + | Specimen | + + | Blood specimen | | (specimen) | + + + +---------+ + + | Performing | Address | City/State/Zipcode | Phone Number | | Organization | | | | + +---------+ + + | EXTERNAL LAB | | | | + +---------+ + + Culture, Blood (05/27/2017 3:15 AM PDT) + + | Specimen | + + | Blood specimen | | (specimen) | + + + + + | Narrative | Performed At | + + + | Specimen Description BLOOD CULTURE | EXTERNAL LAB | | NO GROWTH 6 DAYS | | + + + + +---------+ + + | Performing | Address | City/State/Zipcode | Phone Number | | Organization | | | | + +---------+ + + | EXTERNAL LAB | | | | + +---------+ + + Urinalysis, Reflex Microscopic and/or Culture (05/27/2017 2:00 AM PDT) + + + + + + | Component | Value | Ref Range | Performed | Pathologist | | | | | At | Signature | + + + + + + | Color | RED | | EXTERNAL | | | | | | LAB | | + + + + + + | Clarity | CLEAR | | EXTERNAL | | | | | | LAB | | + + + + + + | Specific | 1.005 | 1.002 - 1.030 | EXTERNAL | | | [place] | | | LAB | | + + + + + + | Leukocyte | TRACE (A) | | EXTERNAL | | | Esterase, | | | LAB | | | Urine | | | | | + + + + + + | Nitrite, | NEGATIVE | | EXTERNAL | | | Urine | | | LAB | | + + + + + + | Urobilinoge | NORMAL | mg/dL | EXTERNAL | | | n, Urine | | | LAB | | + + + + + + | Protein, | NEGATIVE | mg/dL | EXTERNAL | | | Urine | | | LAB | | + + + + + + | pH, Urine | 5.0 | 5.0 - 8.0 | EXTERNAL | | | | | | LAB | | + + + + + + | Blood, | SMALL (A) | | EXTERNAL | | | Urine | | | LAB | | + + + + + + | Ketones | NEGATIVE | mg/dL | EXTERNAL | | | | | | LAB | | + + + + + + | Bilirubin, | NEGATIVE | | EXTERNAL | | | Urine | | | LAB | | + + + + + + | Glucose, | NEGATIVE | mg/dL | EXTERNAL | | | Urine | | | LAB | | + + + + + + | WBC, UA | 0-2 | 0 - 5 /hpf | EXTERNAL | | | | | | LAB | | + + + + + + | RBC, UA | 3-5 | 0 - 5 /hpf | EXTERNAL | | | | | | LAB | | + + + + + + | Bacteria, | 2+ (A) | | EXTERNAL | | | UA | | | LAB | | + + + + + + | Epithelial | 26-49Comment: Testing | /lpf | EXTERNAL | | | Cells | performed at [facility];[address] | | LAB | | | | [address];[place], [place] | | | | | | [address] | | | | + + + + + + + + | Specimen | + + | | + + + +---------+ + + | Performing | Address | City/State/Zipcode | Phone Number | | Organization | | | | + +---------+ + + | EXTERNAL LAB | | | | + +---------+ + + MRI Lumbar Spine w wo Contrast (05/26/2017 1:25 PM PDT) + + | Specimen | + + | | + + + + + | Narrative | Performed At | + + + | This is a non-reportable procedure without a radiologist report and | | | is used for image storage only | | + + + + + | Procedure Note | + + | Hécotr De Jesus - 07/11/2019 10:53 PM PDT This is a non-reportable procedure | | without a radiologist report and isused for image storage only | + + documented in this encounter Visit Diagnoses + + | Diagnosis | + + | Infection of lumbar spine (HCC) | + + | Type 2 diabetes mellitus without complication, unspecified intermediate frame tender insulin use | | status | + + | History of drug abuse (HCC) Other, mixed, or unspecified nondependent drug abuse, in | | remission | + + | BMI 40.0-44.9, adult (HCC) Body Mass Index 40.0-44.9, adult | + + | Back pain, unspecified back location, unspecified back pain laterality, unspecified | | chronicity | + + documented in this encounter
--- OUTSIDE RECORDS SUMMARY | ~2019-11-01 | XMS | Encounter Summary ---
Demographics + + + | Address | [address] | | | [place] [address] | + + + | Home Phone [...] + + + | Author | [place] [employer] [facility] | + + + | Organization | [facility] [employer] [facility] [...] Team Providers + +------+ + | Care Hammer Mill Operator Name | Role | Phone | + +------+ + | Pedro Luis Sams MD | PCP | | + +------+ + Encounter Details +--------+ + + + + | Date | Type | Department | Care Team | Description | +--------+ + + + + | 08/31/ | Telephone | [facility] | Leticia Pitts MD | | | 2010 | | [place]/Ophthalmol | | | | | | leon at [facility] [address] | | | | | | [address] Mailcode: | | | | | | [facility], | | | | | | [facility] | | | | | | Floor [place], [place] | | | | | | [address] | | | | | | [phone] | | | +--------+ + + + [...]
--- OUTSIDE RECORDS SUMMARY | ~2019-11-01 | XMS | Encounter Summary ---
Demographics + + + | Address | [address] | | | [place] [address] | + + + | Home Phone [...] + + + | Author | [place] [employer] [facility] | + + + | Organization | [facility] [employer] [facility] | + + + | Address | Unknown | + + + | Phone | Unavailable | + + + Support + + +---------+ + | Name | Relationship | Address | Phone | + + +---------+ + | Ruby Au | ECON | Unknown | | + + +---------+ + Care Team Providers + +------+ + | Care Brand Engineer Name | Role | Phone | [...] Papilledema | | 2006 | Visit | [place] | [address] | Associated with | | | | Oculoplastics at | [place], [place] | Increased | | | | [place] [address] | [address] | Intracranial | | | | [address] | [phone] | Pressure; Enlarged | | | | Mailcode: [facility] | | Blind Spot; | | | | [place], [place] | | Bilateral Headaches | | | | [address] | | | | | | [phone] | | | +--------+---------+ + + + [...] [facility] 02/07/07Electronically signed by Ashley Jacobo at 12:44 PM PSTSuRomina Bojorquez - 01/30/2007 12:20 [...] Eye meds: Diamox, Oxycontin, Robaxin. Visual Acuity: [facility] RE 20/20-1 LE 20/25-2 NI Pupil: OS [...]
--- OUTSIDE RECORDS SUMMARY | ~2019-11-01 | XMS | Encounter Summary ---
Demographics + + + | Address | [address] | | | [place] [address] | + + + | Home Phone [...] + + + | Author | [place] [employer] [facility] | + + + | Organization | [facility] | + + + | Address | Unknown | + + + | Phone | Unavailable | + + + Support + + +---------+ + | Name | Relationship | Address | Phone | + + +---------+ + | Ruby Au | ECON | Unknown | | + + +---------+ + Care Team Providers + +------+ + | Care Fairing Man Name | Role | Phone | [...] Cerebri; | | 2005 | Visit | [place] | | Common Migraine | | | | Neuro-Ophthalmology | | without Mention of | | | | [address] | | Intractable Migraine | | | | Blvd Mailcode: [facility] | | | | | | Mailcode: [facility] | | | | | | [place], [place] | | | | | | [address] | | | | | | [phone] | | | +--------+---------+ + + + [...] 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
--- OUTSIDE RECORDS SUMMARY | ~2019-11-01 | XMS | Encounter Summary ---
Demographics + + + | Address | [address] | | | [place] [address] | + + + | Home Phone [...] + + | Author | [place] [employer] [facility] | + + + | Organization | [facility] [employer] [facility] [...] Team Providers + +------+ + | Care Recapper Name | Role | Phone | + [...] Cerebri | | 2006 | Visit | [place] | | (Primary Dx) | | | | Neuro-Ophthalmology | | | | | | [address] | | | | | | [place] Mailcode: [facility] | | | | | | Mailcode: [facility] | | | | | | [place], [place] | | | | | | [phone] | | | | | | [phone] | | | +--------+---------+ + + + [...] encounter Progress Notes Marko Sergio M - 01/30/2007 11:20 AM PSTFormatting of this note might be differen t from the original. Neuro-Ophthalmology Return Patient Evaluation 01/30/2007 Referred by: CASIMIRO PAYTON MD [address] [place] [address] Symptoms: Patient feels things are better. Vision [...] Brad Currie MD Neuro-Ophthalmology and Cerebrovascular Disease [facility] Ophthalmology, Neurology, and Neurosurgery documented in this encounter Plan of Treatment + + +--------+ + + | Name | Type | Priori | Associated Diagnoses | Order Schedule | | | | ty | | | + + +--------+ + + | CO VISUAL FIELD | Procedures | Routin | Pseudotumor | Ordered: 01/30/2007 | | EXAM,EXTENDED | | e | Cerebri | | + + +--------+ + + documented as of this encounter Visit Diagnoses + + | Diagnosis | + + | Pseudotumor cerebri - Primary Benign intracranial hypertension | + + documented in this encounter"
--- OUTSIDE RECORDS SUMMARY | ~2019-11-01 | XMS | Encounter Summary ---
Demographics + + + | Address | [address] | | | [place] [address] | + + + | Home Phone [...] + + + | Author | [place] [employer] [facility] | + + + | Organization | [facility] [place] [employer] [facility] | + + + | Address | Unknown | + + + | Phone | Unavailable | + + + Support + + +---------+ + | Name | Relationship | Address | Phone | + + +---------+ + | Ruby Au | ECON | Unknown | | + + +---------+ + Care Team Providers + +------+ + | Care Lace Machine Operator Name | Role | Phone [...] Neurosurgery [address] | | | | | [facility] | [address] | | | | | and Healing, | [place], [place] | | | | | [facility] | [address] | | | | | Floor [place], [place] | | | | | | [address] | | | | | | [phone] | | | +--------+ + + + [...]
--- OUTSIDE RECORDS SUMMARY | ~2019-11-01 | XMS | Encounter Summary ---
Demographics + + + | Address | [address] | | | [place] [address] | + + + | Home Phone [...] [facility] | | [...] Team Providers + +------+ + | Care Beauty Culturist Name | Role | Phone | + +------+ + PCP | Unavailable | + +------+ + Encounter Details +--------+ + + + + | Date | Type | Department | Care Team | Description | +--------+ + + + + | 06/20/ | Hospital | [facility] | Yovanny Suazo, | | | 1991 | Encounter | MED CTR WOMENS | MD [address] | | | | | HEALTH [facility] [address] | [address] | | | | | [place], [place] [address] | | | | | [place] [address] | [phone] | | | | | [phone] | | | +--------+ + + + [...]
--- OUTSIDE RECORDS SUMMARY | ~2019-11-01 | XMS | Encounter Summary ---
Demographics + + + | Address | [address] | | | [place] [address] | + + + | Home Phone [...] + + + | Author | [place] [address] [address] [facility] | + + + | Organization | [facility] [employer] [facility] | + + + | Address | Unknown | + + + | Phone | Unavailable | + + + Support + + +---------+ + | Name | Relationship | Address | Phone | + + +---------+ + | Ruby Au | ECON | Unknown | | + + +---------+ + Care Team Providers + +------+ + | Care Machine Heel Sprayer Name | Role | Phone | [...] Cerebri; | | 2006 | Visit | [place]/Ophthalmol | | Papilledema | | | | ogy at [facility] [address] | | Associated with | | | | [address] Mailcode: | | Increased | | | | CH11P [facility] | | Intracranial | | | | Health and Healing, | | Pressure; Transient | | | | Building | | Visual Loss | | | | Floor [place], [place] | | | | | | [address] | | | | | | [phone] | | | +--------+---------+ + + + [...] HPI: 31 y.o. year old female from [place] : Patient presents with: Transient visual loss [...] seconds; these occur 2-3 x per w chenega. Hobbies: Tobacco use: reports that she has [...] patient to continue follow-up for psuedotumor w [facility] neuro-ophth. Follow up at [facility] prn new symptoms or complaints. WADE [...]
--- OUTSIDE RECORDS SUMMARY | ~2019-11-01 | XMS | Clinical Summary ---
Demographics + + + | Address | [address] | | | [place] [address] | + + + | Home Phone [...] Organization | [facility] | | | [...] Team Providers + +------+ + | Care Mysql Database Administrator Name | Role | Phone | [...] +---------+--------+ | [place] | MEDICA | [id number] | 11/09/ | [phone] | | Medica | | | [place] | | 2018-P | 2 | | id | | | PLUS | | resent | | | | + +--------+ +--------+ +---------+--------+ | FORMERLY [facility] | IHS | [id number] | 11/08/ | | | Indemn | [...] | 1975 | [phone] | [place] [address] | | | rene | | | 5 (Home) | | + +--------+ +--------+ + + Advance Directives + + + + + | Type | Date Recorded | Patient | Explanation | | | | Appraiser Timber | | + + + + + | Power of | | | | | Diver Tender | | | | + + + + + | Advance | | | | | Directive | | | | + + + + +
--- OUTSIDE RECORDS SUMMARY | ~2019-11-01 | XMS | Encounter Summary ---
Demographics + + + | Address | [address] | | | [place] [address] | + + + | Home Phone | | + + + | Preferred Language | Unknown | + + + | Marital Status | | + + + | Orthodoxy Affiliation | Unknown | + + + | Race | Unknown | + + + | Ethnic Group | Unknown | + + + Author + + + | Author | [facility] | | | and [place] | + + + | Organization | [facility] | | | and [...] Team Providers + +------+ + | Care Rehab Nurse Name | Role | Phone | + +------+ + PCP | Unavailable | + +------+ + Encounter Details +--------+ + + + + | Date | Type | Department | Care Team | Description | +--------+ + + + + | 09/27/ | Hospital | [facility] | | | | 1991 | Encounter | [facility] | | | | | | HEALTH [address] | | | | | | [place], | | | | | | [place] [address] | | | | | | [phone] | | | +--------+ + + + [...]
--- OUTSIDE RECORDS SUMMARY | ~2019-11-01 | XMS | Encounter Summary ---
Demographics + + + | Address | [address] | | | [place] [address] | + + + | Home Phone [...] | Organization | [facility] | | | and [...] Providers + +------+ + | Care Truck Body Builder Apprentice Name | Role | Phone | + +------+ + PCP | Unavailable | + +------+ + Encounter Details +--------+ + + + + | Date | Type | Department | Care Team | Description | +--------+ + + + + | 07/06/ | Hospital | [facility] | Mirna Lambert | | | 2007 | Encounter | MED CTR EMERGENCY | Bri Waters MD [address] | | | | | [address] | [facility] | | | | | [place] | [place] [address] | | | | | [address] | [phone] | | | | | [phone] | | | +--------+ + + + [...]
--- OUTSIDE RECORDS SUMMARY | ~2019-11-01 | XMS | Encounter Summary ---
Demographics + + + | Address | [address] | | | [place] [address] | + + + | Home Phone [...] + + + | Author | [place] [employer] [facility] | + + + | Organization | [facility] [employer] [facility] [...] Team Providers + +------+ + | Care Hull Line Crew Member Name | Role | Phone | [...] | | | Ave Mailcode: CH8N | [place], [place] | | | | | [facility] | [address] | | | | | and Healing, | [phone] | | | | | [facility] | | | | | | Floor [place], [place] | | | | | | [address] | | | | | | [phone] | | | +--------+ + + + [...]
--- OUTSIDE RECORDS SUMMARY | ~2019-11-01 | XMS | Encounter Summary ---
Demographics + + + | Address | [address] | | | [place] [address] | + + + | Home Phone [...] + + | Author | [place] [employer] [facility] | + + + | Organization | [facility] [employer] [facility] | + + [...] Request (Pt | | 2006 | | [place] | [address] | requests more pain | | | | Oculoplastics at | [place], [place] | medication) | | | | Maicol Perez [facility] | [address] | | | | | [address] | [phone] | | | | | Mailcode: PATTI | | | | | | [place], [place] | | | | | | [address] | | | | | | [phone] | | | +--------+--------+ + + + [...]
--- OUTSIDE RECORDS SUMMARY | ~2019-11-01 | XMS | Encounter Summary ---
Demographics + + + | Address | [address] | | | [place] [address] | + + + | Home Phone [...] + + + | Author | [place] [employer] [facility] | + + + | Organization | [facility] [employer] [facility] | [...] Team Providers + +------+ + | Care Table Lever Operator Name | Role | Phone | [...] | Visit | Medicine Clinic at | DOCUMENT SPECIALIST [address] | Pre-Operative | | | | [facility] 4th Floor [address] | Examination (Primary | | | | [address] | [place], [place] | Dx); Pseudotumor | | | | Mailcode: CH4S | [address] | Cerebri; Encounter | | | | [facility] | | for Long-Term | | | | and Healing, | | (Current) Use of | | | | Building 1,4th Floor | | Anticoagulants | | | | [place], [place] | | | | | | [address] | | | | | | [phone] | | | +--------+---------+ + + + [...] Scanned [facility] [address] [place] [address] And [facility],[address] [place] [phone] documented in this encou nter Plan of Treatment + + +--------+ + + | Name | Type | Priori | Associated Diagnoses | Order Schedule | | | | ty | | | + + +--------+ + + | KS COLLECTION VENOUS | Procedures | Routin | [...] + + + + | [facility] DEPARTMENT OF | [address] [facility] | [place] [address] | | | PATHOLOGY | [address] | | | + + + + + | [facility] DEPARTMENT OF | [address] [facility] | [place] [address] | | | PATHOLOGY | [address] [...] | [facility] | [address] [facility] | [place] [address] | | | PATHOLOGY | [address] | | | + + + + + | [facility] | [address] [facility] | [place] [address] | | | PATHOLOGY | [address] [...] + | [facility] DEPARTMENT OF | [address] [facility] | [place] [address] | | | PATHOLOGY | [address] | | | + + + + + | [facility] DEPARTMENT OF | [address] [facility] | [place] [address] | | | PATHOLOGY | [address] [...] | [facility] | [address] [facility] | [place] [address] | | | PATHOLOGY | [address] | | | + + + + + | [facility] | [address] [facility] | [place] [address] | | | PATHOLOGY | [address] [...] Performed At | + + + | [id number] Estimated GFR > 60 mL/min/1.73 sq m if non- | [facility] | | [place] 621129 Estimated GFR > 60 mL/min/1.73 sq m if | DEPARTMENT OF | | [place] GFR is estimated using the MDRD equation [...] | [facility] | [address] | [place] [address] | | | PATHOLOGY | [address] | | | + + + + + | [facility] | [facility] [address] | [place] [address] | | | PATHOLOGY | [address] [...] | [facility] | [address] [facility] | [place] [address] | | | PATHOLOGY | [address] | | | + + + + + | [facility] | [address] [facility] | [place] [address] | | | PATHOLOGY | [address] | | | + + + + + documented in this encounter Visit Diagnoses + + | Diagnosis | + + | Other specified pre-operative examination - Primary | + + | Pseudotumor cerebri Benign intracranial hypertension | + + | [facility] (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
--- OUTSIDE RECORDS SUMMARY | ~2019-11-01 | XMS | Encounter Summary ---
Demographics + + + | Address | [address] | | | [place] [address] | + + + | Home Phone [...] [facility] | [...] Providers + +------+ + | Care Sql Data Analyst Name | Role | Phone | + +------+ + PCP | Unavailable | + +------+ + Encounter Details +--------+ + + + + | Date | Type | Department | Care Team | Description | +--------+ + + + + | 11/22/ | Hospital | [facility] | | | | 1995 | Encounter | MED CTR EMERGENCY | | | | | | CENTER [address] | | | | | | [place] | | | | | | [address] | | | | | | [phone] | | | +--------+ + + + [...]
--- OUTSIDE RECORDS SUMMARY | ~2019-11-01 | XMS | Encounter Summary ---
Demographics + + + | Address | [address] | | | [place] [address] | + + + | Home Phone [...] Team Providers + +------+ + | Care Attorney Lawyer Name | Role | Phone | + +------+ + PCP | Unavailable | + +------+ + Encounter Details +--------+ + + + + | Date | Type | Department | Care Team | Description | +--------+ + + + + | 04/20/ | Hospital | [facility] | | | | 1995 | Encounter | MED CTR EMERGENCY | | | | | | CENTER [address] | | | | | | [place] | | | | | | [address] | | | | | | [phone] | | | +--------+ + + + [...]
--- OUTSIDE RECORDS SUMMARY | ~2019-11-01 | XMS | Encounter Summary ---
Demographics + + + | Address | [address] | | | [place] [address] | + + + | Home Phone [...] + | Organization | [facility] | | | and [...] Providers + +------+ + | Care Tar Heater Operator Name | Role | Phone | + +------+ + PCP | Unavailable | + +------+ + Encounter Details +--------+ + + + + | Date | Type | Department | Care Team | Description | +--------+ + + + + | 05/31/ | Hospital | [facility] | | | | 1991 | Encounter | [facility] | | | | | | HEALTH [address] | | | | | | [place], | | | | | | [place] [address] | | | | | | [phone] | | | +--------+ + + + [...]
--- OUTSIDE RECORDS SUMMARY | ~2019-11-01 | XMS | Encounter Summary ---
Demographics + + + | Address | [address] | | | [place] [address] | + + + | Home Phone [...] + + | Author | [place] [employer] [facility] | + + + | Organization | [facility] [email or web address] [facility] | + [...] Providers + +------+ + | Care Security Infrastructure Engineer Name | Role | Phone | + +------+ + | Brenden Benavides MD | PCP | | + +------+ + Encounter Details +--------+ + + + + | Date | Type | Department | Care Team | Description | +--------+ + + + + | 02/22/ | Telephone | [facility] | Hay Hughes MD [address] | | | 2006 | | [facility] | [address] | | | | | Oculoplastics at | [place], [place] | | | | | Maicol Perez [facility] | [address] | | | | | [address] | [phone] | | | | | Mailcode: PATTI | | | | | | [place], [place] | | | | | | [address] | | | | | | [phone] | | | +--------+ + + + [...]
--- OUTSIDE RECORDS SUMMARY | ~2019-11-01 | XMS | Encounter Summary ---
Demographics + + + | Address | [address] | | | [place] [address] | + + + | Home Phone [...] + + + | Author | [place] [employer] [facility] | + + + | Organization | [facility] [employer] [facility] | + + + | Address | Unknown | + + + | Phone | Unavailable | + + + Support + + +---------+ + | Name | Relationship | Address | Phone | + + +---------+ + | Ruby Au | ECON | Unknown | | + + +---------+ + Care Team Providers + +------+ + | Care Analog Ic Design Architect Name | Role | Phone | [...] | | | | | cerebri | [address] | | | | | | Procedures | Ave | | | | | | CONSULT TO | [place], [place] | | | | | | [facility] | [address] | | | | | | | Phone: | | | | | | | [phone] | | | | | | | Fax: | | | | | | | [phone] | | +--------+--------+ + + + + [...] | Office | Neurosurgery [address] | Sam Pedroza MD | Pseudotumor Cerebri | | 2005 | Visit | [address] [place] | [address] | (Primary Dx) | | | | Rd Mailcode:OP14B | [place], [place] | | | | | [facility] | [address] | | | | | [place], [place] | [phone] | | | | | [address] | | | | | | [phone] | | | +--------+---------+ + + + [...] pressu re. Referral to Dr. Maloney in [place], [place] where a lumboperitoneal shunt was placed and subsequently explanted due to infection and migration of the catheter tip from the peritoneal space. She feels that her symptoms were helped at the time of the placement of the shunt; the head aches and visual problems have worsened since shunt removal. She has opted to come to [facility] rather than to return to [place] based on travel convenience. Review of Systems: [...] brain without; Neuro-ophthalmology consultation. [facility] Plan of Treatment Not on filedocumented [...] | | + +---------+ + + | [facility] DEPARTMENT OF | | | | | RADIOLOGY | | | | + +---------+ + + documented in this encounter Visit Diagnoses + + | Diagnosis | + + | Pseudotumor cerebri - Primary Benign intracranial hypertension | + + documented in this encounter
--- OUTSIDE RECORDS SUMMARY | ~2019-11-01 | XMS | Encounter Summary ---
Demographics + + + | Address | [address] | | | [place] [address] | + + + | Home Phone [...] + + + | Author | [place] [employer] [facility] | + + + | Organization | [facility] Bench [facility] [...] Providers + +------+ + | Care Director Translation Name | Role | Phone | + [...] | | | Ave Mailcode: CH8N | [place], [place] | | | | | [facility] | [address] | | | | | and Healing, | [phone] | | | | | [facility] | | | | | | Floor [place], [place] | | | | | | [address] | | | | | | [phone] | | | +--------+ + + + [...]
--- OUTSIDE RECORDS SUMMARY | ~2019-11-01 | XMS | Encounter Summary ---
Demographics + + + | Address | [address] | | | [place] [address] | + + + | Home Phone [...] + + | Author | [place] [employer] [facility] | + + + | Organization | [facility] [employer] Science [facility] | + + + | Address | Unknown | + + + | Phone | Unavailable | + + + Support + + +---------+ + | Name | Relationship | Address | Phone | + + +---------+ + | Ruby Au | ECON | Unknown | | + + +---------+ + Care Team Providers + +------+ + | Care Blood And Plasma Laboratory Assistant Name | Role | Phone | + +------+ + | Yieson Simms MD | PCP | Unavailable | [...] Cerebri | | 2007 | Visit | [facility] [address] | [address] | (Primary Dx) | | | | Ave Mailcode: CH8N | [place], [place] | | | | | [facility] | [address] | | | | | and Healing, | [phone] | | | | | [facility] | | | | | | Floor [place], [place] | | | | | | [address] | | | | | | [phone] | | | +--------+---------+ + + + [...] wanted to have LP shunt instead of MECHANICAL DESIGN ENGINEER shunt because she d oes not weant [...]
--- OUTSIDE RECORDS SUMMARY | ~2019-11-01 | XMS | Encounter Summary ---
Demographics + + + | Address | [address] | | | [place] [address] | + + + | Home Phone [...] + + | Author | [place] [employer] [facility] | + + + | Organization | [facility] [employer]lim[employer] Science [facility] | + + + | Address | Unknown | + + + | Phone | Unavailable | + + + Support + + +---------+ + | Name | Relationship | Address | Phone | + + +---------+ + | Ruby Au | ECON | Unknown | | + + +---------+ + Care Team Providers + +------+ + | Care Section Supervisor Name | Role | Phone | [...] | | | Ave Mailcode: CH8N | [place], [place] | | | | | [facility] | [address] | | | | | and Healing, | [phone] | | | | | [facility] | | | | | | Floor [facility] [place] | | | | | | [address] | | | | | | [phone] | | | +--------+ + + + [...]
--- OUTSIDE RECORDS SUMMARY | ~2019-11-01 | XMS | Encounter Summary ---
Demographics + + + | Address | [address] | | | [place] [address] | + + + | Home Phone [...] + + + | Author | [place] [employer] [facility] | + + + | Organization | [facility] [employer] [facility] | + + + | Address | Unknown | + + + | Phone | Unavailable | + + + Support + + +---------+ + | Name | Relationship | Address | Phone | + + +---------+ + | Ruby Au | ECON | Unknown | | + + +---------+ + Care Team Providers + +------+ + | Care Scenery Builder Name | Role | Phone | [...] | | | | | | | [address] | | | | | | | [address] | | | | | | | [address] | | | | | | | [place] | | | | | | | [place], [place] | | | | | | | [address] Phone: | | | | | | | [phone] | +--------+--------+ + + + + Encounter Details +--------+ + + + + | Date | Type | Department | Care Team | Description | +--------+ + + + + | 08/01/ | Hospital | [facility] [address] | Sam Pedroza MD | | | 2007 - | Encounter | [address] | [address] | | | | | [address] [address] | [place], [place] | | | 08/02/ | | [place], | [address] | | | 2007 | | [place] [address] | [phone] | | | | | [phone] | | | +--------+ + + + [...] in 2 weeks, please call for appointment: [phone] Condition On Discharge: Vital Signs at discharge [...] in 2 weeks, please call for appointment: [phone] Condition On Discharge: Vital Signs at discharge [...] at this time. PT to sign off. alYessenia chowdhury 08/02/2008 9:00 AM PDTOT contact note: Spoke with pt who reports she has been up ambulating independently, has no ADL needs and st ates Dr. Pedroza agreed that she would not need therapies. Spoke with RN who endorses that pt has been up independently last pm and this am. OT to sign off at this time. Yessenia Nowak, OTR/ L [address] Tomasz Caldera Md - 02/2008 11:08 AM [...] Performed At | + + + | [id number] | | | [id number] | | | [place] [id number] Date: | | | 08/01/2008 Attending Surgeon: | | | Sam Pedroza M.D. Special Agent In Charge(s): | | | Tomasz Rice M.D. | [...] | tonsils and then gently incised. A Dunbar 4 was then easily fed | | [...] | | | Pooja Pedroza M.D. / [id number] / | | | [id number] / [id number] / | | + + + + + | Procedure Note | + + | Krystal Rushing, Tomasz - 08/01/2008 12:00 AM PDT [id number] | | [id number] [place] | | [id number] Date: 08/01/2008 Attending Surgeon: Sam | | Pooja Pedroza Special Agent In Charge(s): Tomasz Rice M.D. | | Palomo Jansen [...] tonsils and | | thengently incised. A Dunbar 4 was then easily fed through it, [...] Sam Pedroza M.D. KG / | | [id number] / [id number] / [id number] / T: 08/02/2008 | |dripping from the [...] tonsils and then | |gently incised. A Dunbar 4 was then easily fed through it, [...] | | | |KG / HS | |[id number] / [id number] / [id number] / | | | | | | | | | | | | | | | | | | | | | + + TEACHING PHYSICIAN (08/01/2008 12:00 AM PDT) + + + | Narrative | Performed At | + + + | [id number] | | | [id number] | | | [place] [id number] | | | Date: 08/01/2008 Attending Surgeon: | | | Sam Pedroza M.D. Special Agent In Charge(s): | | | Tomasz Rice M.D. | [...] | | | Pooja Pedroza / LANETTE [id number] / [id number] / [id number] / [id number] D: | | | 08/01/2008 | | + + + + + | Procedure Note | + + | Sam Pedroza MD - 08/01/2008 12:00 AM PDT [id number] | | [id number] [place] | | [id number] Date: 08/01/2008ttending Surgeon: Sam | | Pooja Pedroza Special Agent In Charge(s): Tomasz Rice M.D. | | Palomo Jansen [...] | Bisi. Sam Pedroza M.D. AD / [id number] / [id number] / [id number] / [id number]: | | 08/01/2008T: 08/01/2008 | | | [...] | | | |AD / HS | |[id number] / [id number] / [id number] / [id number] | | | | | | | [...] + +-------+ + +---+---+ | senna-docusate (mary MCCOY S) | Given | 08/02/20 | 1 [...]
--- OUTSIDE RECORDS SUMMARY | ~2019-11-01 | XMS | Encounter Summary ---
Demographics + + + | Address | [address] | | | [place] [address] | + + + | Home Phone [...] + + + | Author | [place] [employer] [facility] | + + + | Organization | [facility] [employer] [facility] | + [...] Team Providers + +------+ + | Care Dupligraph Operator Name | Role | Phone | + +------+ + | Brenden Benavides MD | PCP | | + +------+ + Encounter Details +--------+ + + + + | Date | Type | Department | Care Team | Description | +--------+ + + + + | 01/05/ | Telephone | [facility] | Brad Currie MD | | | 2006 | | [place] | | | | | | Neuro-Ophthalmology | | | | | | [address] | | | | | | [place] Mailcode: CEI | | | | | | Mailcode: CEI | | | | | | [place], [place] | | | | | | [address] | | | | | | [phone] | | | +--------+ + + + [...]
--- OUTSIDE RECORDS SUMMARY | ~2019-11-01 | XMS | Encounter Summary ---
Demographics + + + | Address | [address] | | | [place] [address] | + + + | Home Phone [...] Organization | [facility] | | [...] Team Providers + +------+ + | Care Loading Manager Name | Role | Phone | + +------+ + PCP | Unavailable | + +------+ + Encounter Details +--------+ + + + + | Date | Type | Department | Care Team | Description | +--------+ + + + + | 10/27/ | Hospital | [facility] | | | | 1990 | Encounter | [facility] | | | | | | CENTER [address] | | | | | | [place] | | | | | | [address] | | | | | | [phone] | | | +--------+ + + + [...]
--- OUTSIDE RECORDS SUMMARY | ~2019-11-01 | XMS | Encounter Summary ---
Demographics + + + | Address | [address] | | | [place] [address] | + + + | Home Phone [...] + + + | Author | [place] [employer] [facility] | + + + | Organization | [facility] reportbrain [facility] | + [...] Team Providers + +------+ + | Care Location Analyst Name | Role | Phone | [...] Papilledema | | 2006 | Visit | [place] | [address] | Associated with | | | | Oculoplastics at | [place], [place] | Increased | | | | [place] [address] | [address] | Intracranial | | | | [address] | [phone] | Pressure; 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 Visual Acuity: [facility] RE 20/20-1 LE 20/25-2 NI [...]
--- OUTSIDE RECORDS SUMMARY | ~2019-11-01 | XMS | Encounter Summary ---
Demographics + + + | Address | [address] | | | [place] [address] | + + + | Home Phone [...] Organization | [facility] | | | and [...] Team Providers + +------+ + | Care Long Lines Operator Name | Role | Phone | + +------+ + PCP | Unavailable | + +------+ + Encounter Details +--------+ + + + + | Date | Type | Department | Care Team | Description | +--------+ + + + + | 07/10/ | Emergency | [facility] | Perry Flores | Headache; Benign | | 2012 | | MEDICAL CENTER | [place] [address] | intracranial | | | | EMERGENCY CENTER | [address] | hypertension; Back | | | | [address] | [place] [address] | pain | | | | [place], [place] | [phone] | | | | | [address] | | | | | | [phone] | | | +--------+ + + + [...] | + + + | ANNABELLA Waters [facility] HEAD WO CONTRAST HISTORY: 37 years. [...]
--- OUTSIDE RECORDS SUMMARY | ~2019-11-01 | XMS | Encounter Summary ---
Demographics + + + | Address | [address] | | | [place] [address] | + + + | Home Phone [...] + + | Author | [place] [employer] [facility] | + + + | Organization | [facility] [...] Providers + +------+ + | Care Civil Design Specialist Name | Role | Phone | [...] Cerebri | | 2006 | Visit | [place] | [address] | (Primary Dx) | | | | Oculoplastics at | [place], [place] | | | | | [place] [address] | [address] | | | | | [address] | [phone] | | | | | Mailcode: PATTI | | | | | | [place], [place] | | | | | | [address] | | | | | | [phone] | | | +--------+---------+ + + + [...]
--- OUTSIDE RECORDS SUMMARY | ~2019-11-01 | XMS | Encounter Summary ---
Demographics + + + | Address | [address] | | | [place] [address] | + + + | Home Phone [...] + + + | Author | [place] [employer] [facility] | + + + | Organization | [facility] | + [...] Team Providers + +------+ + | Care Handling Tech Name | Role | Phone | [...] | Headache | | 2005 | | [place]/Ophthalmol | MD Jordin | | | | | leon at [facility] [address] | | | | | | [address] Mailcode: | | | | | | CH11P [facility] | | | | | | Health and Healing, | | | | | | Building | | | | | | Floor [place], [place] | | | | | | [address] | | | | | | [phone] | | | +--------+ + + + [...]
--- OUTSIDE RECORDS SUMMARY | ~2019-11-01 | XMS | Encounter Summary ---
Demographics + + + | Address | [address] | | | [place] [address] | + + + | Home Phone [...] + + + | Author | [place] [facility] [employer] [facility] | + + + | Organization | [facility] [employer] Science [facility] [...] Providers + +------+ + | Care Community Relations Director Name | Role | Phone | [...] | | 2006 | Visit | [place] | | (Primary Dx) | | | | Neuro-Ophthalmology | | | | | | [address] | | | | | | [place] Mailcode: CEI | | | | | | Mailcode: CEI | | | | | | [place], [place] | | | | | | [address] | | | | | | [phone] | | | +--------+---------+ + + + [...] Brad Currie MD Neuro-Ophthalmology and Cerebrovascular Disease Physics Technician of Ophthalmology, Neurology, and Neurosurgery documented [...] | + + +--------+ + + | [place] VISUAL FIELD | Procedures | Routin | Pseudotumor | Ordered: 12/02/2006 | | EXAM,EXTENDED | | e | Cerebri | | + + +--------+ + + documented as of this encounter Visit Diagnoses + + | Diagnosis | + + | Pseudotumor cerebri - Primary Benign intracranial hypertension | + + documented in this encounter"
--- OUTSIDE RECORDS SUMMARY | ~2019-11-01 | XMS | Encounter Summary ---
Demographics + + + | Address | [address] | | | [place] [address] | + + + | Home Phone [...] | Organization | [facility] | [...] Providers + +------+ + | Care Technical Mgr Name | Role | Phone | + +------+ + PCP | Unavailable | + +------+ + Encounter Details +--------+ + + + + | Date | Type | Department | Care Team | Description | +--------+ + + + + | 10/21/ | Hospital | [facility] | | | | 1991 | Encounter | [facility] | | | | | | HEALTH SV [address] | | | | | | [place], | | | | | | [place] [address] | | | | | | [phone] | | | +--------+ + + + [...]
--- OUTSIDE RECORDS SUMMARY | ~2019-11-01 | XMS | Encounter Summary ---
Demographics + + + | Address | [address] | | | [place] [address] | + + + | Home Phone [...] | [facility] [...] Team Providers + +------+ + | Care Mechanical Design Engineer Facilities Name | Role | Phone | + +------+ + PCP | Unavailable | + +------+ + Encounter Details +--------+ + + + + | Date | Type | Department | Care Team | Description | +--------+ + + + + | 06/20/ | Hospital | [facility] | Yovanny Suazo, | | | 1991 | Encounter | MED CTR [facility] | MD [address] | | | | | [facility] [address] | [address] | | | | | [place], | [place] [address] | | | | | [place] [address] | [phone] | | | | | [phone] | | | +--------+ + + + [...]
--- OUTSIDE RECORDS SUMMARY | ~2019-11-01 | XMS | Encounter Summary ---
Demographics + + + | Address | [address] | | | [place] [address] | + + + | Home Phone [...] + + | Author | [place] [employer] [facility] | + + + | Organization | [facility] [employer] [facility] | + + [...] Providers + +------+ + | Care Banana Expert Name | Role | Phone | [...] | | | Ave Mailcode: CH8N | [place], [place] | | | | | [facility] | [address] | | | | | and Healing, | [phone] | | | | | [facility] | | | | | | Floor [place], [place] | | | | | | [address] | | | | | | [phone] | | | +--------+--------+ + + + [...]
--- OUTSIDE RECORDS SUMMARY | ~2019-11-01 | XMS | Encounter Summary ---
Demographics + + + | Address | [address] | | | [place] [address] | + + + | Home Phone [...] + | Organization | [facility] | | [...] Providers + +------+ + | Care Supervisor Files Name | Role | Phone | + +------+ + PCP | Unavailable | + +------+ + Encounter Details +--------+ + + + + | Date | Type | Department | Care Team | Description | +--------+ + + + + | 06/10/ | Hospital | [facility] | | | | 1991 | Encounter | [facility] | | | | | | HEALTH SV [address] | | | | | | [place], | | | | | | [place] [address] | | | | | | [phone] | | | +--------+ + + + [...]
--- OUTSIDE RECORDS SUMMARY | ~2019-11-01 | XMS | Encounter Summary ---
Demographics + + + | Address | [address] | | | [place] [address] | + + + | Home Phone [...] + + + | Author | [place] [employer] [facility] | + + + | Organization | [facility] Publ[employer] Science [facility] | + + + | Address | Unknown | + + + | Phone | Unavailable | + + + Support + + +---------+ + | Name | Relationship | Address | Phone | + + +---------+ + | Ruby Au | ECON | Unknown | | + + +---------+ + Care Team Providers + +------+ + | Care Hair Spring Cutter Name | Role | Phone | [...] Cerebri; | | 2006 | Visit | [place] | [address] | Pain in or Around | | | | Oculoplastics at | [place], [place] | Eye | | | | [place] [address] | [address] | | | | | [address] | [phone] | | | | | Mailcode: CESimon | | | | | | [place], [place] | | | | | | [address] | | | | | | [phone] | | | +--------+---------+ + + + [...] to be seen here or by an chute tender in [facility], but she says she does not have transportation. I will call in Vicodin #20, pt to call i mmediately if there is any worsening. Pt states lucho lump in left faith is gone. No pain. Pt. Had cough [...]
--- OUTSIDE RECORDS SUMMARY | ~2019-11-01 | XMS | Encounter Summary ---
Demographics + + + | Address | [address] | | | [place] [address] | + + + | Home Phone [...] Organization | [facility] | | [...] Team Providers + +------+ + | Care Laryngologist Name | Role | Phone | + +------+ + PCP | Unavailable | + +------+ + Encounter Details +--------+ + + + + | Date | Type | Department | Care Team | Description | +--------+ + + + + | 05/25/ | Hospital | [facility] | | | | 1991 | Encounter | [facility] | | | | | | HEALTH SV [address] | | | | | | [place], | | | | | | [place] [address] | | | | | | [phone] | | | +--------+ + + + [...]
--- OUTSIDE RECORDS SUMMARY | ~2019-11-01 | XMS | Encounter Summary ---
Demographics + + + | Address | [address] | | | [place] [address] | + + + | Home Phone [...] + + + | Author | [place] [facility] | + + + | Organization | [facility] [employer] [facility] | + + + | Address | Unknown | + + + | Phone | Unavailable | + + + Support + + +---------+ + | Name | Relationship | Address | Phone | + + +---------+ + | Ruby Au | ECON | Unknown | | + + +---------+ + Care Team Providers + +------+ + | Care Calender Worker Helper Name | Role | Phone [...] Care Coordination | | 2018 | | [place] | [address] | | | | | Neuro-Ophthalmology | [facility] [place] | | | | | at [facility] [address] | [address] | | | | | Ave Mailcode: CH3G | [phone] | | | | | [facility] | | | | | | and Healing, | | | | | | Building | | | | | | Floor [place], [place] | | | | | | [address] | | | | | | [phone] | | | +--------+ + + + [...]
--- OUTSIDE RECORDS SUMMARY | ~2019-11-01 | XMS | Encounter Summary ---
Demographics + + + | Address | [address] | | | [place] [address] | + + + | Home Phone [...] + + + | Author | [place] [employer] [facility] | + + + | Organization | [facility] | + + + | Address | Unknown | + + + | Phone | Unavailable | + + + Support + + +---------+ + | Name | Relationship | Address | Phone | + + +---------+ + | Ruby Au | ECON | Unknown | | + + +---------+ + Care Team Providers + +------+ + | Care Warrant Server Name | Role | Phone | + [...] | | | Ave Mailcode: CH8N | [place], [place] | | | | | [facility] | [address] | | | | | and Healing, | [phone] | | | | | [facility] | | | | | | Floor [place], [place] | | | | | | [address] | | | | | | [phone] | | | +--------+ + + + [...]
--- OUTSIDE RECORDS SUMMARY | ~2019-11-01 | XMS | Encounter Summary ---
Demographics + + + | Address | [address] | | | [place] [address] | + + + | Home Phone [...] + + | Author | [place] [employer] [facility] | + + + | Organization | [facility] [...] Team Providers + +------+ + | Care Ventilator Specialist Name | Role | Phone | [...] + | 05/03/ | Telephone | Neurosurgery [address] | Sam Pedroza MD | Prescription (for | | 2007 | | [address] | [address] | hospital bed ) | | | | Rd Mailcode: PV01 | [place], [place] | | | | | Physician's | [address] | | | | | [place], | [phone] | | | | | [place] [address] | | | | | | [phone] | | | +--------+ + + + [...]
--- OUTSIDE RECORDS SUMMARY | ~2019-11-01 | XMS | Encounter Summary ---
Demographics + + + | Address | [address] | | | [place] [address] | + + + | Home Phone [...] + + + | Author | [place] [employer] [facility] | + + + | Organization | [facility] [employer] Science [facility] | + [...] Team Providers + +------+ + | Care Button Sewer Name | Role | Phone | [...] at | | | | | | MPDhara 4th Floor Day | | | | | | Stay [address] [facility] | | | | | | [address] | | | | | | Mailcode: VIN65 | | | | | | [place] | | | | | | [address] [place], [place] | | | | | | [address] | | | | | | [phone] | | | +--------+ + + + [...]
--- OUTSIDE RECORDS SUMMARY | ~2019-11-01 | XMS | Encounter Summary ---
Demographics + + + | Address | [address] | | | [place] [address] | + + + | Home Phone [...] + + | Author | [place] [employer] [facility] | + + + | Organization | [facility] [employer] [facility] | [...] Team Providers + +------+ + | Care Horticultural Services Supervisor Name | Role | Phone | [...] | | | MD [address] | [address] | | | | | | [place] | Ave | | | | | | [address] | [place], [place] | | | | | | [place], | [address] | | | | | | [place] [address] | Phone: | | | | | | Phone: | [phone] | | | | | | [phone] | Fax: | | | | | | Fax: | [phone] | | | | | | [phone] | | +--------+ + + + + + Encounter Details +--------+---------+ + + + | Date | Type | Department | Care Team | Description | +--------+---------+ + + + | 09/17/ | Office | Neurosurgery at | Casimiro Payton MD | Pseudotumor cerebri | | 2010 | Visit | [facility] [address] | [address] | (Primary Dx) | | | | Ave Mailcode: CH8N | [place], [place] | | | | | [facility] | [address] | | | | | and Healing, | [phone] | | | | | [facility] | | | | | | Floor [place], [place] | | | | | | [address] | | | | | | [phone] | | | +--------+---------+ + + + [...] soon. I spent more than 15 minutes [id number] with the patient of which greater than 50% was sp ent counseling the patient regarding the shunt removal, indications and venous sinus stent a ngioplasty. Since her shunt is brent effective now she will need narcotics for headache and he r PCP should manage that. CASIMIRO PAYTON MD NEUROSURGERY [address] Mailcode: Ch8n [facility], 8th [facility] [address] documented in this encou nter Plan of Treatment Not on filedocumented as of this encounter Visit Diagnoses + + | Diagnosis | + + | Pseudotumor cerebri - Primary Benign intracranial hypertension | + + documented in this encounter
--- OUTSIDE RECORDS SUMMARY | ~2019-11-01 | XMS | Encounter Summary ---
Demographics + + + | Address | [address] | | | [place] [address] | + + + | Home Phone [...] + + + | Author | [place] [employer] Science [facility] | + + + | Organization | [facility] [employer] [facility] | + [...] Providers + +------+ + | Care Tin Container Straightener Name | Role | Phone | [...] Cerebri | | 2006 | Visit | [facility] | Bud Alexander MD [address] | (Primary Dx) | | | | Maicol Perez [facility] | [address] | | | | | [address] | [place], [place] | | | | | Mailcode: [facility] | [address] | | | | | [facility] [place] | [phone] | | | | | [address] | | | | | | [phone] | | | +--------+---------+ + + + [...] of this encounter Progress Notes Baljinder Asif Watres - 11/30/2006 3:40 PM PSTChelseapilar Au was [...]
--- OUTSIDE RECORDS SUMMARY | ~2019-11-01 | XMS | Encounter Summary ---
Demographics + + + | Address | [address] | | | [place] [address] | + + + | Home Phone [...] Organization | [facility] | | [...] Team Providers + +------+ + | Care Java Performance Engineer Name | Role | Phone | + +------+ + PCP | Unavailable | + +------+ + Encounter Details +--------+ + + + + | Date | Type | Department | Care Team | Description | +--------+ + + + + | 06/19/ | Hospital | [facility] | | | | 1991 | Encounter | [facility] | | | | | | HEALTH SV [address] | | | | | | [place], | | | | | | [place] [address] | | | | | | [phone] | | | +--------+ + + + [...]
--- OUTSIDE RECORDS SUMMARY | ~2019-11-01 | XMS | Encounter Summary ---
Demographics + + + | Address | [address] | | | [place] [address] | + + + | Home Phone [...] + + + | Author | [place] [employer] [facility] | + + + | Organization | On License [facility] [employer] [facility] | [...] Team Providers + +------+ + | Care I&C Tech Name | Role | Phone | + +------+ + | Yeison Simms MD | PCP | Unavailable | + +------+ + Encounter Details +--------+ + + + + | Date | Type | Department | Care Team | Description | +--------+ + + + + | 12/24/ | Telephone | Neurosurgery at | Kiki Rosen, | | | 2008 | | [facility] [address] | [place] JOSE | | | | | [place] Mailcode: CH8N | Neurosurgery [address] | | | | | [facility] | [address] | | | | | and Healing, | [place], [place] | | | | | [place] [address] | [address] | | | | | Floor [place], [place] | | | | | | [address] | | | | | | [phone] | | | +--------+ + + + [...]
--- OUTSIDE RECORDS SUMMARY | ~2019-11-01 | XMS | Encounter Summary ---
Demographics + + + | Address | [address] | | | [place] [address] | + + + | Home Phone [...] + + | Author | [place] [employer] Science [facility] | + + + | Organization | [facility] [employer] [facility] [...] Team Providers + +------+ + | Care Bonding Machine Setter Name | Role | Phone | [...] Cerebri | | 2006 | Visit | [place] | | | | | | Photography at | | | | | | [address] [place] [address] | | | | | | [address] | | | | | | Mailcode: PATTI | | | | | | [place], [place] | | | | | | [address] | | | | | | [phone] | | | +--------+---------+ + + + [...] PM DINOAnnabella Au was seen in the [facility] [place] Photography/Ultrasound Department today, 11/30/2006, for ultrasound OU [...]
--- OUTSIDE RECORDS SUMMARY | ~2019-11-01 | XMS | Encounter Summary ---
Demographics + + + | Address | [address] | | | [place] [address] | + + + | Home Phone [...] Organization | [facility] | | [...] Team Providers + +------+ + | Care Blast Furnace Blower Name | Role | Phone | + +------+ + PCP | Unavailable | + +------+ + Encounter Details +--------+ + + + + | Date | Type | Department | Care Team | Description | +--------+ + + + + | 10/18/ | Hospital | [facility] | | | | 1991 | Encounter | [facility] | | | | | | HEALTH SV [address] | | | | | | [place], | | | | | | [place] [address] | | | | | | [phone] | | | +--------+ + + + [...]
--- OUTSIDE RECORDS SUMMARY | ~2019-11-01 | XMS | Encounter Summary ---
Demographics + + + | Address | [address] | | | [place] [address] | + + + | Home Phone [...] + + + | Author | [place] [employer] [facility] | + + + | Organization | [facility] [employer] [facility] | [...] Team Providers + +------+ + | Care Bung Dropper Name | Role | Phone | + [...] Cerebri | | 2006 | Visit | [place] | | (Primary Dx) | | | | Neuro-Ophthalmology | | | | | | [address] | | | | | | [place] Mailcode: CEI | | | | | | Mailcode: CEI | | | | | | [place], [place] | | | | | | [address] | | | | | | [phone] | | | +--------+---------+ + + + [...] Brad Currie MD Neuro-Ophthalmology and Cerebrovascular Disease Dry Yard Worker of Ophthalmology, Neurology, and Neurosurgery documented in [...] + + +--------+ + + | [place] VISUAL FIELD | Procedures | Routin | Pseudotumor | Ordered: 12/02/2006 | | EXAM,EXTENDED | | e | Cerebri | | + + +--------+ + + documented as of this encounter Visit Diagnoses + + | Diagnosis | + + | Pseudotumor cerebri - Primary Benign intracranial hypertension | + + documented in this encounter"
--- OUTSIDE RECORDS SUMMARY | ~2019-11-01 | XMS | Encounter Summary ---
Demographics + + + | Address | [address] | | | [place] [address] | + + + | Home Phone [...] + + + | Author | [place] [employer] Science [facility] | + + + | Organization | [facility] [employer] [facility] [...] Team Providers + +------+ + | Care Wash Barrel Leader Name | Role | Phone | + [...] | | | 2012 | | Department [address] | | | | | | [address] | | | | | | [facility] | | | | | | [place], [place] | | | | | | [address] | | | | | | [phone] | | | +--------+ + + + [...]
--- OUTSIDE RECORDS SUMMARY | ~2019-11-01 | XMS | Encounter Summary ---
Demographics + + + | Address | [address] | | | [place] [address] | + + + | Home Phone [...] Organization | [facility] [...] Providers + +------+ + | Care Surgical Aide Name | Role | Phone | + +------+ + PCP | Unavailable | + +------+ + Encounter Details +--------+ + + + + | Date | Type | Department | Care Team | Description | +--------+ + + + + | 01/01/ | Hospital | [facility] | [place], | | | 2009 | Encounter | MED CTR EMERGENCY | Brad Yu MD [address] | | | | | [place] [address] | [facility] | | | | | [place] | [place] [address] | | | | | [address] | [phone] | | | | | [phone] | | | +--------+ + + + [...]
--- OUTSIDE RECORDS SUMMARY | ~2019-11-01 | XMS | Encounter Summary ---
Demographics + + + | Address | [address] | | | [place] [address] | + + + | Home Phone [...] + + + | Author | [place] [employer] Science [facility] | + + + | Organization | [facility] [email or web address] Science [facility] | + + [...] Providers + +------+ + | Care Medical Asst Name | Role | Phone | [...] + + | 06/24/ | Emergency | [facility] Emergency | | | | 2010 | | Department [address] | | | | | | [address] | | | | | | [facility] | | | | | | [place], [place] | | | | | | [address] | | | | | | [phone] | | | +--------+ + + + [...]
--- OUTSIDE RECORDS SUMMARY | ~2019-11-01 | XMS | Encounter Summary ---
Demographics + + + | Address | [address] | | | [place] [address] | + + + | Home Phone [...] Organization | [facility] [...] Providers + +------+ + | Care Geophysical Prospector Name | Role | Phone | + +------+ + PCP | Unavailable | + +------+ + Encounter Details +--------+ + + + + | Date | Type | Department | Care Team | Description | +--------+ + + + + | 11/04/ | Hospital | [facility] | Unknown, | | | 2004 | Encounter | MED CTR XRAY [address] | MD Sudhakar | | | | | [place] | | | | | | [place] [address] | (Fax) | | | | | [phone] | | | +--------+ + + + [...]
--- OUTSIDE RECORDS SUMMARY | ~2019-11-01 | XMS | Encounter Summary ---
Demographics + + + | Address | [address] | | | [place] [address] | + + + | Home Phone [...] | [facility] | | [...] + +------+ + | Care Professor Of Psychiatry Name | Role | Phone | + +------+ + PCP | Unavailable | + +------+ + Encounter Details +--------+ + + + + | Date | Type | Department | Care Team | Description | +--------+ + + + + | 10/02/ | Hospital | [facility] | | | | 1991 | Encounter | MED CTR WOMENS | | | | | | HEALTH SV [address] | | | | | | [place], | | | | | | [place] [address] | | | | | | [phone] | | | +--------+ + + + [...]
--- OUTSIDE RECORDS SUMMARY | ~2019-11-01 | XMS | Encounter Summary ---
Demographics + + + | Address | [address] | | | [place] [address] | + + + | Home Phone | | + + + | Preferred Language | Unknown | + + + | Marital Status | | + + + | Bahai Affiliation | NON | + + + | Race | or | + + + | Ethnic Group | Not or | + + + Author + + + | Author | [place] [employer] Science [facility] | + + + | Organization | [facility] MyFrontSteps Science [facility] | + [...] Providers + +------+ + | Care Service Coordinator Name | Role | Phone | [...] | | | Ave Mailcode: CH8N | [place], [place] | | | | | [facility] | [address] | | | | | and Healing, | [phone] | | | | | [facility] | | | | | | Floor [place], [place] | | | | | | [address] | | | | | | [phone] | | | +--------+ + + + [...]
--- OUTSIDE RECORDS SUMMARY | ~2019-11-01 | XMS | Encounter Summary ---
Demographics + + + | Address | [address] | | | [place] [address] | + + + | Home Phone [...] + + + | Author | [place] [employer] [facility] | + + + | Organization | [facility] [employer] [facility] | + [...] Team Providers + +------+ + | Care Meat Seafood Associate Name | Role | Phone | [...] Cerebri | | 2007 | Visit | [facility] [address] | [place] | (Primary Dx) | | | | Ave Mailcode: CH8N | Neurosurgery [address] | | | | | [facility] | [address] | | | | | and Healing, | [place], [place] | | | | | Building | [address] | | | | | Floor [place], [place] | | | | | | [address] | | | | | | [phone] | | | +--------+---------+ + + + [...]
--- OUTSIDE RECORDS SUMMARY | ~2019-11-01 | XMS | Encounter Summary ---
Demographics + + + | Address | [address] | | | [place] [address] | + + + | Home Phone [...] | Organization | [facility] [...] Team Providers + +------+ + | Care Bug Trimmer Name | Role | Phone | + +------+ + PCP | Unavailable | + +------+ + Encounter Details +--------+ + + + + | Date | Type | Department | Care Team | Description | +--------+ + + + + | 08/01/ | Hospital | [facility] | | | | 1991 | Encounter | MED CTR WOMENS | | | | | | HEALTH SV [address] | | | | | | [place], | | | | | | [place] [address] | | | | | | [phone] | | | +--------+ + + + [...]
--- OUTSIDE RECORDS SUMMARY | ~2019-11-01 | XMS | Encounter Summary ---
Demographics + + + | Address | [address] | | | [place] [address] | + + + | Home Phone [...] + + + | Author | [place] [employer] Science [facility] | + + + | Organization | [facility] [employer] [facility] | + [...] Team Providers + +------+ + | Care Amplifier Mechanic Name | Role | Phone | [...] Cerebri | | 2006 | Visit | [place] | [address] Hammer | (Primary Dx) | | | | Oculoplastics at | [place], [place] | | | | | [place] [address] | [address] | | | | | [address] Hammer | [phone] | | | | | Mailcode: PATTI | | | | | | [place], [place] | | | | | | [address] | | | | | | [phone] | | | +--------+---------+ + + + [...]
--- OUTSIDE RECORDS SUMMARY | ~2019-11-01 | XMS | Encounter Summary ---
Demographics + + + | Address | [address] | | | [place] [address] | + + + | Home Phone [...] Organization | [facility] | | [...] Providers + +------+ + | Care Rental Agent Name | Role | Phone | + +------+ + PCP | Unavailable | + +------+ + Encounter Details +--------+ + + + + | Date | Type | Department | Care Team | Description | +--------+ + + + + | 04/21/ | Hospital | [facility] | | | | 1995 | Encounter | MED CTR EMERGENCY | | | | | | CENTER [address] | | | | | | [place] | | | | | | [address] | | | | | | [phone] | | | +--------+ + + + [...]
--- OUTSIDE RECORDS SUMMARY | ~2019-11-01 | XMS | Encounter Summary ---
Demographics + + + | Address | [address] | | | [place] [address] | + + + | Home Phone [...] + + + | Author | [place] [employer] [facility] | + + + | Organization | [facility] [employer] [facility] | + [...] Team Providers + +------+ + | Care Substitute Teacher Name | Role | Phone | [...] | | | Ave Mailcode: CH8N | [place], [place] | | | | | [facility] | [address] | | | | | and Healing, | [phone] | | | | | [facility] | | | | | | Floor [place], [place] | | | | | | [address] | | | | | | [phone] | | | +--------+ + + + [...]
--- OUTSIDE RECORDS SUMMARY | ~2019-11-01 | XMS | Encounter Summary ---
Demographics + + + | Address | [address] | | | [place] [address] | + + + | Home Phone [...] + + + | Author | [place] [employer] Science [facility] | + + + | Organization | [facility] VideoSurf Science [facility] [...] Team Providers + +------+ + | Care Factory Maintenance Technician Name | Role | Phone | [...] + + | 06/24/ | Emergency | [facility] | | | | 2010 | | Department [address] | | | | | | [address] | | | | | | [facility] | | | | | | [place], [place] | | | | | | [address] | | | | | | [phone] | | | +--------+ + + + [...]
--- OUTSIDE RECORDS SUMMARY | ~2019-11-01 | XMS | Encounter Summary ---
Demographics + + + | Address | [address] | | | [place] [address] | + + + | Home Phone [...] | Organization | [facility] | [...] Team Providers + +------+ + | Care Duplex Trimmer Name | Role | Phone | + +------+ + PCP | Unavailable | + +------+ + Encounter Details +--------+ + + + + | Date | Type | Department | Care Team | Description | +--------+ + + + + | 09/30/ | Hospital | [facility] | | | | 1990 | Encounter | MED CTR EMERGENCY | | | | | | CENTER [address] | | | | | | [place] | | | | | | [address] | | | | | | [phone] | | | +--------+ + + + [...]
--- OUTSIDE RECORDS SUMMARY | ~2019-11-01 | XMS | Encounter Summary ---
Demographics + + + | Address | [address] | | | [place] [address] | + + + | Home Phone [...] + | Organization | [facility] | [...] Team Providers + +------+ + | Care Sheriff'S Detective Name | Role | Phone | + +------+ + PCP | Unavailable | + +------+ + Encounter Details +--------+ + + + + | Date | Type | Department | Care Team | Description | +--------+ + + + + | 01/27/ | Hospital | [facility] | Marine Oden | | | 2011 - | Encounter | MED CTR EMERGENCY | DO Gaurang Drake | | | | | [place] | [place], [place] | | | 01/28/ | | [place], [place] | [address] | | | 2011 | | [address] | | | | | | [phone] | | | +--------+ + + + [...] Performed At | + + + | [facility] Diagnostic Imaging Department | [facility] | | [address] [facility] | [facility] | | UNENHANCED HEAD CT, 01/28/2012, | [...] | | | Transcribed Date/Time: 01/29/2012 09:47 River Guide: | | | <Electronically Signed by Ivan Smalls MD> 01/29/12 1606 | | + + + + + | Procedure Note | + + | Neal, Rad Conversion - 01/04/2014 4:51 PM [facility] | | Diagnostic Imaging Department [address] [place] | | UNENHANCED HEAD CT, 01/28/2012, 2342 [...] 09:41 | |Transcribed Date/Time: 01/29/2012 09:47 | |River Guide: | |<Electronically Signed by Ivan Smalls MD> [...]
--- OUTSIDE RECORDS SUMMARY | ~2019-11-01 | XMS | Encounter Summary ---
Demographics + + + | Address | [address] | | | [place] [address] | + + + | Home Phone [...] Team Providers + +------+ + | Care Correctional Supervisor Name | Role | Phone | + +------+ + PCP | Unavailable | + +------+ + Encounter Details +--------+ + + + + | Date | Type | Department | Care Team | Description | +--------+ + + + + | 08/01/ | Hospital | [facility] | | | | 1991 | Encounter | MED CTR WOMENS | | | | | | HEALTH SV [address] | | | | | | [place], | | | | | | [place] [address] | | | | | | [phone] | | | +--------+ + + + [...]
--- OUTSIDE RECORDS SUMMARY | ~2019-11-01 | XMS | Encounter Summary ---
Demographics + + + | Address | [address] | | | [place] [address] | + + + | Home Phone [...] + + + | Author | [place] [employer]kill Science [facility] | + + + | Organization | [facility] [employer] [facility] | + + [...] Providers + +------+ + | Care Auto Service Writer Name | Role | Phone | [...] | | [address] Mailcode:OP14B | [place], | | | | | [place] | [place] [address] | | | | | [place], [place] | | | | | | [address] | | | | | | [phone] | | | +--------+ + + + [...]
--- OUTSIDE RECORDS SUMMARY | ~2019-11-01 | XMS | Encounter Summary ---
Demographics + + + | Address | [address] | | | [place] [address] | + + + | Home Phone [...] + + + | Author | [place] [employer] Science [facility] | + + + | Organization | [facility] Southern [employer] Leagues Science [facility] [...] Providers + +------+ + | Care Fire Medic Name | Role | Phone | + [...] Neurosurgery [address] | | | | | [facility] | [address] | | | | | and Healing, | [place], [place] | | | | | [facility] | [address] | | | | | Floor [place], [place] | | | | | | [address] | | | | | | [phone] | | | +--------+ + + + [...]
--- OUTSIDE RECORDS SUMMARY | ~2019-11-01 | XMS | Encounter Summary ---
Demographics + + + | Address | [address] | | | [place] [address] | + + + | Home Phone [...] + + + | Author | [place] [employer] Science [facility] | + + + | Organization | [facility] [email or web address] Science [facility] | + [...] Providers + +------+ + | Care Kitchen Utility Associate Name | Role | Phone | [...] [address] | | | | | [place] | [place], [place] | | | | | [place], [place] | [address] | | | | | [address] | [phone] | | | | | [phone] | | | +--------+ + + + [...]
--- OUTSIDE RECORDS SUMMARY | ~2019-11-01 | XMS | Encounter Summary ---
Demographics + + + | Address | [address] | | | [place] [address] | + + + | Home Phone [...] Organization | [facility] [...] Providers + +------+ + | Care Service Order Clerk Name | Role | Phone | + +------+ + PCP | Unavailable | + +------+ + Encounter Details +--------+ + + + + | Date | Type | Department | Care Team | Description | +--------+ + + + + | 05/15/ | Hospital | [facility] | | | | 1991 | Encounter | MED CTR XRAY [address] | | | | | | [place] | | | | | | [place] [address] | | | | | | [phone] | | | +--------+ + + + [...]
--- OUTSIDE RECORDS SUMMARY | ~2019-11-01 | XMS | Encounter Summary ---
Demographics + + + | Address | [address] | | | [place] [address] | + + + | Home Phone [...] + + + | Author | [place] app[employer]AR Science [facility] | + + + | Organization | [facility] SS8 Networks Science [facility] [...] Providers + +------+ + | Care Automotive Fuel Systems Converter Name | Role | Phone | + +------+ + | Yeison Simms MD | PCP | Unavailable | + +------+ + Reason for Visit + + + | Reason | Comments | + + + | Refill Request | refill on [place] | + + + Encounter Details +--------+--------+ + + + | Date | Type | Department | Care Team | Description | +--------+--------+ + + + | 08/27/ | Refill | Neurosurgery at | Sam Pedroza MD | Refill Request | | 2007 | | [facility] [address] | [address] | (refill on [place]) | | | | Ave Mailcode: CH8N | [place], [place] | | | | | [facility] | [address] | | | | | and Healing, | [phone] | | | | | [facility] | | | | | | Floor [place], [place] | | | | | | [address] | | | | | | [phone] | | | +--------+--------+ + + + [...]
--- OUTSIDE RECORDS SUMMARY | ~2019-11-01 | XMS | Encounter Summary ---
Demographics + + + | Address | [address] | | | [place] [address] | + + + | Home Phone [...] + + + | Author | [place] [employer] Science [facility] | + + + | Organization | [facility] Accupass Science [facility] | [...] Team Providers + +------+ + | Care Hardware Engineer Name | Role | Phone | [...] Cerebri; | | 2006 | Visit | [place] | [address] | Pain in or Around | | | | Oculoplastics at | [place], [place] | Eye | | | | [place] [address] | [address] | | | | | [address] | [phone] | | | | | Mailcode: CESimon | | | | | | [place], [place] | | | | | | [address] | | | | | | [phone] | | | +--------+---------+ + + + [...] to be seen here or by an show worker in [facility], but she says she does not have transportation. I will call in Vicodin #20, pt to call i mmediately if there is any worsening. Pt states lucho lump in left gnosticism is gone. No pain. Pt. Had cough [...]
--- OUTSIDE RECORDS SUMMARY | ~2019-11-01 | XMS | Encounter Summary ---
Demographics + + + | Address | [address] | | | [place] [address] | + + + | Home Phone [...] + + + | Author | [place] [employer] Science [facility] | + + + | Organization | [facility] PCA Audit Science [facility] | + [...] + +------+ + | Care Social Worker Delinquency Prevention Name | Role | Phone | + [...] Cerebri | | 2006 | Visit | [place] | | (Primary Dx) | | | | Neuro-Ophthalmology | | | | | | [address] | | | | | | [place] Mailcode: CEI | | | | | | Mailcode: CEI | | | | | | [place], [place] | | | | | | [address] | | | | | | [phone] | | | +--------+---------+ + + + [...] Referred by: CASIMIRO PAYTON MD [address] [place] [address] Symptoms: Patient feels things are better. Vision [...] Brad Currie MD Neuro-Ophthalmology and Cerebrovascular Disease Sample Checker of Ophthalmology, Neurology, and Neurosurgery documented in [...]
--- OUTSIDE RECORDS SUMMARY | ~2019-11-01 | XMS | Encounter Summary ---
Demographics + + + | Address | [address] | | | [place] [address] | + + + | Home Phone [...] + + | Author | [place] NPC III Science [facility] | + + + | Organization | [facility] [employer] [facility] | + + + | Address | Unknown | + + + | Phone | Unavailable | + + + Support + + +---------+ + | Name | Relationship | Address | Phone | + + +---------+ + | Ruby Au | ECON | Unknown | | + + +---------+ + Care Team Providers + +------+ + | Care Jewel Lathe Operator Name | Role | Phone [...] | | | [address] Mailcode: [id number] | [place], [place] | | | | | [place], [place] | [address] | | | | | [address] | [phone] | | | | | [phone] | | | +--------+ + + + [...]
--- OUTSIDE RECORDS SUMMARY | ~2019-11-01 | XMS | Encounter Summary ---
Demographics + + + | Address | [address] | | | [place] [address] | + + + | Home Phone [...] + + + | Author | [place] [employer] Science [facility] | + + + | Organization | [facility] Community [employer] Science [facility] | + [...] + +------+ + | Care Guest Service Manager Name | Role | Phone | [...] | | | Ave Mailcode: CH8N | [place], [place] | | | | | [facility] | [address] | | | | | and [place], | [phone] | | | | | [facility] | | | | | | Floor [place], [place] | | | | | | [address] | | | | | | [phone] | | | +--------+ + + + [...]
--- OUTSIDE RECORDS SUMMARY | ~2019-11-01 | XMS | Encounter Summary ---
Demographics + + + | Address | [address] | | | [place] [address] | + + + | Home Phone [...] [facility] | [...] Providers + +------+ + | Care Mailroom Messenger Name | Role | Phone | + +------+ + PCP | Unavailable | + +------+ + Encounter Details +--------+ + + + + | Date | Type | Department | Care Team | Description | +--------+ + + + + | 01/27/ | Hospital | [facility] | Marine Oden | | | 2011 - | Encounter | MED CTR EMERGENCY | DO Gaurang Drake | | | | | [address] | [place], [place] | | | 01/28/ | | [place], [place] | [address] | | | 2011 | | [address] | | | | | | [phone] | | | +--------+ + + + [...] At | + + + | [facility] Diagnostic Imaging Department | [facility] | | [address] [facility] | [facility] | | UNENHANCED HEAD CT, 01/28/2012, [...] COMMUNICATED TO THE ER STAFF BY [facility] RADIOLOG IST ON | | | 01/29/2012 AT 0003 HOURS. Dictated Date/Time: 01/29/2012 09:41 | | | Transcribed Date/Time: 01/29/2012 09:47 Gluer Machine Operator: | | | <Electronically Signed by Ivan Smalls MD> 01/29/12 1606 | | + + + + + | Procedure Note | + + | Neal, Rad Conversion - 01/04/2014 4:51 PM [facility] | | Diagnostic Imaging Department [address] [place] | | UNENHANCED HEAD CT, 01/28/2012, 2342 [...] 09:41 | |Transcribed Date/Time: 01/29/2012 09:47 | |Gluer Machine Operator: | |<Electronically Signed by Ivan Smalls MD> [...]
--- OUTSIDE RECORDS SUMMARY | ~2019-11-01 | XMS | Encounter Summary ---
Demographics + + + | Address | [address] | | | [place] [address] | + + + | Home Phone [...] | Organization | [facility] | | [...] + +------+ + | Care Certified Medical Technician Name | Role | Phone | + +------+ + PCP | Unavailable | + +------+ + Encounter Details +--------+ + + + + | Date | Type | Department | Care Team | Description | +--------+ + + + + | 08/12/ | Hospital | [facility] | Jenn [place], | | | 2012 | Encounter | HOSPITAL EMERGENCY | [facility] [address] | | | | | CENTER [address] | [place] | | | | | [place] | [id number] | | | | | [address] | | | | | | [phone] | | | +--------+ + + + [...]
--- OUTSIDE RECORDS SUMMARY | ~2019-11-01 | XMS | Encounter Summary ---
Demographics + + + | Address | [address] | | | [place] [address] | + + + | Home Phone [...] Organization | [facility] [...] + + | 09/30/ | Hospital | [facility] | | | | 1991 | Encounter | MED CTR WOMENS | | | | | | HEALTH SV [address] | | | | | | [place], | | | | | | [place] [address] | | | | | | [phone] | | | +--------+ + + + [...]
--- OUTSIDE RECORDS SUMMARY | ~2019-11-01 | XMS | Encounter Summary ---
Demographics + + + | Address | [address] | | | [place] [address] | + + + | Home Phone [...] + + | Author | [place] [employer] Science [facility] | + + + | Organization | [facility] Specialist Resources Global Science [facility] [...] Team Providers + +------+ + | Care Driver/Merchandiser Name | Role | Phone | + +------+ + | Brenden Benavides MD | PCP | | + +------+ + Encounter Details +--------+ + + + + | Date | Type | Department | Care Team | Description | +--------+ + + + + | 02/07/ | Procedure - | Digestive Health | Record, Operation | Operative Report | | 2006 | | [place] [facility] [address] | | | | | Transcribed | [address] | | | | | | Mailcode: Center | | | | | | for Health and | | | | | | Healing, [facility] [address] | | | | | | [place], [place] | | | | | | [address] | | | | | | [phone] | | | +--------+ + + + [...] | 02/07/2007 12:00 AM PDT | | [id number] | | [id number] [place] [id number] | | | | Date: 02/07/2007 | | | | Attending Surgeon: Hay Hughes M.D. | | | | Lab Engineer(s): Pascual Bermudez M.D. | | | [...] medial orbital | | septum. The assistant foreman retracted the orbital fat bag with a [...] | | KYM / LANETTE | | [id number] / [id number] / [id number] / [id number] | | | | | | | | cc: | | | | | | Brad Currie M.D. | | [facility] | | | | | | Brenden Benavides M.D. | | [facility] | | [address] [facility] [address] | | [place] [address] | | | | | | Electronically signed by Hay Hughes 02-12-2007 05:13:05 PM | | | | | + + documented in this encounter Visit Diagnoses Not on filedocumented in this encounter"
--- OUTSIDE RECORDS SUMMARY | ~2019-11-01 | XMS | Encounter Summary ---
Demographics + + + | Address | [address] | | | [place] [address] | + + + | Home Phone [...] + + + | Author | [place] [employer] Science [facility] | + + + | Organization | [facility] PushToTest Science [facility] [...] Providers + +------+ + | Care Email Producer Name | Role | Phone | + +------+ + | Yeison Simms MD | PCP | Unavailable | + +------+ + Encounter Details +--------+--------+ + + + | Date | Type | Department | Care Team | Description | +--------+--------+ + + + | 09/06/ | Refill | Neurosurgery at | Kiki Rosen, | | | 2007 | | [facility] [address] | [place] | | | | | [place] Mailcode: CH8N | Neurosurgery [address] | | | | | [facility] | [address] | | | | | and Healing, | [facility] [place] | | | | | Building | [address] | | | | | Floor [place], [place] | | | | | | [address] | | | | | | [phone] | | | +--------+--------+ + + + [...]
--- OUTSIDE RECORDS SUMMARY | ~2019-11-01 | XMS | Encounter Summary ---
Demographics + + + | Address | [address] | | | [place] [address] | + + + | Home Phone [...] + + + | Author | [place] [employer] [facility] | + + + | Organization | [facility] [employer] [facility] | + [...] Providers + +------+ + | Care Pan Pusher Name | Role | Phone | [...] | Prescription | | 2012 | | [place]/Ophthalmol | MD Perry | | | | | leon at [facility] [address] | | | | | | [address] Mailcode: | | | | | | CH11P [facility] | | | | | | Health and [facility] [place], | | | | | | Building | | | | | | [place], [place] | | | | | | [address] | | | | | | [phone] | | | +--------+ + + + [...]
--- OUTSIDE RECORDS SUMMARY | ~2019-11-01 | XMS | Encounter Summary ---
Demographics + + + | Address | [address] | | | [place] [address] | + + + | Home Phone [...] + + + | Author | [place] [employer] [facility] | + + + | Organization | [facility] [...] Team Providers + +------+ + | Care Right Of Way Buyer Name | Role | Phone | [...] Other | | 2005 | | [facility] | CINTH[address] | | | | | [address] Mailcode:OP14B | [place], [place] | | | | | [facility] | [address] | | | | | [place], [place] | | | | | | [address] | | | | | | [phone] | | | +--------+ + + + [...]
--- OUTSIDE RECORDS SUMMARY | ~2019-11-01 | XMS | Encounter Summary ---
Demographics + + + | Address | [address] | | | [place] [address] | + + + | Home Phone [...] Organization | [facility] | | [...] Providers + +------+ + | Care Dental Director Name | Role | Phone | + +------+ + PCP | Unavailable | + +------+ + Encounter Details +--------+ + + + + | Date | Type | Department | Care Team | Description | +--------+ + + + + | 06/19/ | Hospital | [facility] | | | | 1991 | Encounter | [facility] | | | | | | HEALTH [address] | | | | | | [place], | | | | | | [place] [address] | | | | | | [phone] | | | +--------+ + + + [...]
--- OUTSIDE RECORDS SUMMARY | ~2019-11-01 | XMS | Encounter Summary ---
Demographics + + + | Address | [address] | | | [place] [address] | [...] + + + | Author | [place] [employer] [facility] | + + + | Organization | [facility] [employer] [facility] | + [...] Team Providers + +------+ + | Care Investments Manager Name | Role | Phone | [...] | | Ophthalmology | | Non-[place] | [place], | | | | | | Epic Dept | Graciela Guardado MD | | | | | | | [address] | | | | | | | [address] [place] | | | | | | | [place], [place] | | | | | | | [address] | | | | | | | Phone: | | | | | | | [phone] | | | | | | | Fax: | | | | | | | [phone] | +--------+--------+ + + + + Encounter Details +--------+---------+ + + + | Date | Type | Department | Care Team | Description | +--------+---------+ + + + | 03/26/ | Office | [facility] | Mo Hood | Pseudotumor cerebri | | 2012 | Visit | [place]/Ophthalmol | MD Perry | (Primary Dx); | | | | ogy at [facility] [address] | | Depression; Type II | | | | [address] [place] Mailcode: | | or unspecified type | | | | [address] for | | diabetes mellitus | | | | Health and Healing, | | without mention of | | | | Building | | complication, not | | | | Floor [place], [place] | | stated as | | | | [address] | | uncontrolled; PTSD | | | | [phone] | | (post-traumatic | | | | [...] HPI: 37 y.o. year old female from [place] : Patient presents with: IIH - Idiopathic [...] because they live 4 hours away in [facility]. Tobacco use: reports that she [...] Right Left Disc 1+ Optic disc edema, +ROTARY SHEAR OPERATOR 2+ Optic disc edema, RNFL whitening at the superonasal borde r of the disc. There is spontaneous pulsing of the entire disc head with heart beat. C/D Ratio 0.1 0.1 Macula Normal Normal Vessels Engorged. tortuous Engorged. tortuous Periphery Normal Normal Neuro/Psych Oriented x3: Yes Mood/Affect: Normal See [facility] Ophthalmology Exam Module for additional [...] [facility] at [facility] in 2006) and s/p multiple lumboperitoneal shunt [...] Dr. Lux. Mo Hood MD Resident Physician [facility] [place], PGY-2 [facility] Physician: Mo Hood [...]
--- OUTSIDE RECORDS SUMMARY | ~2019-11-01 | XMS | Encounter Summary ---
Demographics + + + | Address | [address] | | | [place] [address] | + + + | Home Phone [...] | Organization | [facility] | | | and [place] [...] Providers + +------+ + | Care Retail Loan Officer Name | Role | Phone | + +------+ + PCP | Unavailable | + +------+ + Encounter Details +--------+ + + + + | Date | Type | Department | Care Team | Description | +--------+ + + + + | 10/22/ | Hospital | [facility] | | | | 1991 - | Encounter | [facility] | | | | | | [facility]ALTH [facility] [address] | | | | 10/24/ | | [place], | | | | 1991 | | [place] [address] | | | | | | [phone] | | | +--------+ + + + [...]
--- OUTSIDE RECORDS SUMMARY | ~2019-11-01 | XMS | Encounter Summary ---
Demographics + + + | Address | [address] | | | [place] [address] | + + + | Home Phone [...] + + + | Author | [place] [employer] [facility] | + + + | Organization | [facility] [employer] [facility] | + + + | Address | Unknown | + + + | Phone | Unavailable | + + + Support + + +---------+ + | Name | Relationship | Address | Phone | + + +---------+ + | Ruby Au | ECON | Unknown | | + + +---------+ + Care Team Providers + +------+ + | Care Piggyback Clerk Name | Role | Phone | [...] CONTRAST | [address] | [address] | | | | | | [address] | [address] | | | | | | [address] | Mailcode: | | | | | | [place], [place] | [address] [facility] | | | | | | [address] | Hospital | | | | | | Phone: | [place], [place] | | | | | | [phone] | [address] | | | | | | Fax: | Phone: | | | | | | [phone] | [phone] | | | | | | | Fax: | | | | | | | [phone] | +--------+--------+ + + + + Reason for Visit + + + | Reason | Comments | + + + | 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 | | + + + Encounter Details +--------+ + + + + | Date | Type | Department | Care Team | Description | +--------+ + + + + | 03/13/ | Emergency | [facility] Emergency | Mack Castrejon MD | | | 2012 | | Department [address] | [address] [facility] | | | | | [address] | [facility] | | | | | [facility] | [place], [place] | | | | | [place], [place] | [address] | | | | | [address] | [phone] | | | | | [phone] | | | | | | | [...] MD - 03/13/2013 Thanks for coming to [facility] today. Your head CT was negative for any new findings. The neurosurgeon did not think there was a malfunction in your shunt. The dot compliance specialist recommends you taking Diomox again and follow up in 1 week at [facility]. Please follow up with your doctor. Rest, [...] TOTH | [address] | [place], [place] | | | NACHO POINT OF CARE | [address] | [address] | | | TESTS | | | [...] | + + + + + | [facility] | [address] | [place] [address] | | | SERVICES, CORE | SKY [...] | | | | | CHRISTIANO TORRES ([id number]) | | | | | | on 03/14/2013 10:35:55 AM | | | | + + + + + + + + | Specimen | + + | | + + + + + | Narrative | Performed At | + + + | Please click | [facility] | | on view image for the detailed interpretation from [employer] results. | CARDIOLOGY | + + + + + + + + | Performing | Address | City/State/Zipcode | Phone Number | | Organization | | | | + + + + + | [facility] | [address] | [place], [place] | | | CARDIOLOGY | [address] | [address] | | + + + + + [...] [facility] | [address] | [place], [place] | | | NACHO POINT OF CARE | [address] | [address] | | | TESTS | | | [...] [facility] | [address] | [place] [address] | | | SERVICES, CORE | PARK [...] | + + + + + | [facility] | [address] | [place] [address] | | | SERVICES, CORE | SKY [...] | | | LABORATORY | | | ANDORRAN | | | SERVICES, | | | [...] | + + + + + | [facility] LABORATORY | [address] | [place] [address] | | | SERVICES, CORE | PARK [...] | + + + + + | [facility] | [address] | [place] [address] | | | SERVICES, CORE | SKY [...] + | [place] - AIRPORT - | [address] | [place] [address] | | | [place] | | | [...] | + + + + + | [facility] | [address] | [place] [address] | | | SERVICES, CORE | SKY [...]
--- OUTSIDE RECORDS SUMMARY | ~2019-11-01 | XMS | Encounter Summary ---
Demographics + + + | Address | [address] | | | [place] [address] | + + + | Home Phone [...] + + | Author | [place] [employer] [facility] | + + + | Organization | [facility] [employer] [facility] | + [...] Providers + +------+ + | Care Strip Tank Tender Name | Role | Phone | [...] | | | Ave Mailcode: CH8N | [place], [place] | | | | | [facility] | [address] | | | | | and Healing, | [phone] | | | | | | | | | | | Floor [place], [place] | | | | | | [address] | | | | | | [phone] | | | +--------+ + + + [...]
--- OUTSIDE RECORDS SUMMARY | ~2019-11-01 | XMS | Encounter Summary ---
Demographics + + + | Address | [address] | | | [place] [address] | + + + | Home Phone [...] + + | Author | [place] [employer] [facility] | + + + | Organization | [facility] [employer] [facility] | + + + | Address | Unknown | + + + | Phone | Unavailable | + + + Support + + +---------+ + | Name | Relationship | Address | Phone | + + +---------+ + | Ruby Au | ECON | Unknown | | + + +---------+ + Care Team Providers + +------+ + | Care Drawing In Hand Name | Role | Phone | + +------+ + | Yeison Simms MD | PCP | Unavailable | + +------+ + Encounter Details +--------+--------+ + + + | Date | Type | Department | Care Team | Description | +--------+--------+ + + + | 09/06/ | Refill | Neurosurgery at | Kiki Rosen, | | | 2007 | | [facility] [address] | [place] | | | | | [place] Mailcode: CH8N | Neurosurgery [address] | | | | | [facility] | [address] | | | | | and Healing, | [facility] [place] | | | | | Building | [address] | | | | | Floor [place], [place] | | | | | | [address] | | | | | | [phone] | | | +--------+--------+ + + + [...]
--- OUTSIDE RECORDS SUMMARY | ~2019-11-01 | XMS | Encounter Summary ---
Demographics + + + | Address | [address] | | | [place] [address] | + + + | Home Phone [...] | [facility] | [...] Providers + +------+ + | Care Vp Name | Role | Phone | + +------+ + PCP | Unavailable | + +------+ + Encounter Details +--------+ + + + + | Date | Type | Department | Care Team | Description | +--------+ + + + + | 05/28/ | Hospital | [facility] | | | | 1991 | Encounter | MED CTR EMERGENCY | | | | | | CENTER [address] | | | | | | [place] | | | | | | [address] | | | | | | [phone] | | | +--------+ + + + [...]
--- OUTSIDE RECORDS SUMMARY | ~2019-11-01 | XMS | Clinical Summary ---
Demographics + + + | Address | [address] | | | [place] [address] | + + + | Home Phone | | + + + | Preferred Language | Unknown | + + + | Marital Status | | + + + | Methodist Affiliation | Unknown | + + + | Race | Unknown | + + + | Ethnic Group | Unknown | + + + Author + + + | Author | [employer] (Historical as of | | | 07-14-19) | + + + | Organization | [facility] [employer] (Historical as of | | | 07-14-19) [...] Providers + +------+ + | Care Senior Director Name | Role | Phone | [...] +------+-------+ + | MEDICAID | MEDICA | [id number] | | | [address] | | | [place] | | | | [place], [place] | | | [place] | | | | [address] | + +--------+ +------+-------+ + | [facility] | YELLOW | [id number] | | | | | PLANS | [...] | | sameera/Jean-Claude | | 1974 | [phone] | [place] | | | rene | | | [phone] | [address] | + +--------+ +--------+ + +
--- OUTSIDE RECORDS SUMMARY | ~2019-11-01 | XMS | Encounter Summary ---
Demographics + + + | Address | [address] | | | [place] [address] | + + + | Home Phone [...] Organization | [facility] | [...] + + | 06/10/ | Hospital | [facility] | | | | 1991 | Encounter | [facility] | | | | | | HEALTH SV [address] | | | | | | [place], | | | | | | [place] [address] | | | | | | [phone] | | | +--------+ + + + [...]
--- OUTSIDE RECORDS SUMMARY | ~2019-11-01 | XMS | Encounter Summary ---
Demographics + + + | Address | [address] | | | [place] [address] | + + + | Home Phone [...] | [facility] | [...] Team Providers + +------+ + | Care Dermatologist Name | Role | Phone | + [...] | PHYSIATRY [address] | [address] | | | | | [place], | [address] | | | | | [place] [address] | [place] [address] | | | | | [phone] | | | +--------+ + + + [...]
--- OUTSIDE RECORDS SUMMARY | ~2019-11-01 | XMS | Encounter Summary ---
Demographics + + + | Address | [address] | | | [place] [address] | + + + | Home Phone [...] Organization | [facility] [...] Team Providers + +------+ + | Care Evp Business Development Name | Role | Phone | + +------+ + PCP | Unavailable | + +------+ + Encounter Details +--------+ + + + + | Date | Type | Department | Care Team | Description | +--------+ + + + + | 10/25/ | Hospital | [facility] | | | | 1991 | Encounter | MED CTR EMERGENCY | | | | | | CENTER [address] | | | | | | [place] | | | | | | [address] | | | | | | [phone] | | | +--------+ + + + [...]
--- OUTSIDE RECORDS SUMMARY | ~2019-11-01 | XMS | Encounter Summary ---
Demographics + + + | Address | [address] | | | [place] [address] | + + + | Home Phone [...] + + | Author | [place] [employer] [facility] | + + + | Organization | [facility] [employer] Science [facility] | + [...] Team Providers + +------+ + | Care Market Analysis Director Name | Role | Phone | [...] [address] | | | | | | [place], [place] | | | | | | [address] | | | +--------+ + + + [...]
--- OUTSIDE RECORDS SUMMARY | ~2019-11-01 | XMS | Encounter Summary ---
Demographics + + + | Address | [address] | | | [place] [address] | + + + | Home Phone [...] + + + | Author | [place] [employer] [facility] | + + + | Organization | [facility] [employer] [facility] | + + + | Address | Unknown | + + + | Phone | Unavailable | + + + Support + + +---------+ + | Name | Relationship | Address | Phone | + + +---------+ + | Ruby Au | ECON | Unknown | | + + +---------+ + Care Team Providers + +------+ + | Care Grant Officer Name | Role | Phone | + +------+ + | Pedro Luis Sams MD | PCP | | + +------+ + Encounter Details +--------+ + + + + | Date | Type | Department | Care Team | Description | +--------+ + + + + | 03/10/ | Telephone | Neurosurgery at | Steph Reyes MD | | | 2012 | | [facility] [address] | | | | | | [place] Mailcode: CH8N | | | | | | [facility] | | | | | | and Healing, | | | | | | Building [address]th | | | | | | Floor [place], [place] | | | | | | [address] | | | | | | [phone] | | | +--------+ + + + [...]
--- OUTSIDE RECORDS SUMMARY | ~2019-11-01 | XMS | Encounter Summary ---
Demographics + + + | Address | [address] | | | [place] [address] | + + + | Home Phone [...] + + + | Author | [place] [employer] [facility] | + + + | Organization | [facility] [employer] [facility] [...] + +------+ + | Care Human Resources Mgr Name | Role | Phone | [...] [address] | | | | | | [address] | [address] | | | | | | [address] | [place], [place] | | | | | | [place], | [address] | | | | | | [place] [address] | Phone: | | | | | | Phone: | [phone] | | | | | | [phone] | Fax: | | | | | | Fax: | [phone] | | | | | | [phone] | | +--------+ + + + + + Encounter Details +--------+---------+ + + + | Date | Type | Department | Care Team | Description | +--------+---------+ + + + | 09/17/ | Office | Neurosurgery at | Casimiro Payton MD | Pseudotumor cerebri | | 2010 | Visit | [facility] [address] | [address] | (Primary Dx) | | | | Ave Mailcode: CH8N | [place], [place] | | | | | [facility] | [address] | | | | | and Healing, | [phone] | | | | | [facility] | | | | | | Floor [place], [place] | | | | | | [address] | | | | | | [phone] | | | +--------+---------+ + + + [...] soon. I spent more than 15 minutes [id number]-nnso with the patient of which greater than 50% was sp ent counseling the patient regarding the shunt removal, indications and venous sinus stent a ngioplasty. Since her shunt is brent effective now she will need narcotics for headache and he r PCP should manage that. CASIMIRO PAYTON MD NEUROSURGERY [address] Mailcode: Ch8n [facility], [address]th [facility] [address] documented in this encou nter Plan of Treatment Not on filedocumented as of this encounter Visit Diagnoses + + | Diagnosis | + + | Pseudotumor cerebri - Primary Benign intracranial hypertension | + + documented in this encounter
--- OUTSIDE RECORDS SUMMARY | ~2019-11-01 | XMS | Encounter Summary ---
Demographics + + + | Address | [address] | | | [place] [address] | + + + | Home Phone [...] + + + | Author | [place] [employer] [facility] | + + + | Organization | [facility] [employer]by [employer] [facility] [...] Providers + +------+ + | Care Studio Operation Engineer Name | Role | Phone | [...] Cerebri | | 2007 | Visit | [facility] [address] | [address] | (Primary Dx) | | | | Ave Mailcode: CH8N | [place], [place] | | | | | [facility] | [address] | | | | | and Healing, | [phone] | | | | | [facility] | | | | | | Floor [place], [place] | | | | | | [address] | | | | | | [phone] | | | +--------+---------+ + + + [...]
--- OUTSIDE RECORDS SUMMARY | ~2019-11-01 | XMS | Encounter Summary ---
Demographics + + + | Address | [address] | | | [place] [address] | + + + | Home Phone [...] + + + | Author | [place] [employer] [facility] | + + + | Organization | [facility] [employer] Science [facility] [...] Team Providers + +------+ + | Care Record Pressman Name | Role | Phone | + +------+ + | Pedro Luis Sams MD | PCP | | + +------+ + Encounter Details +--------+ + + + + | Date | Type | Department | Care Team | Description | +--------+ + + + + | 03/10/ | Telephone | Neurosurgery at | Steph Reyes MD | | | 2012 | | [facility] [address] | | | | | | [place] Mailcode: CH8N | | | | | | [facility] | | | | | | and Healing, | | | | | | Building [address]th | | | | | | Floor [place], [place] | | | | | | [address] | | | | | | [phone] | | | +--------+ + + + [...]
--- OUTSIDE RECORDS SUMMARY | ~2019-11-01 | XMS | Encounter Summary ---
Demographics + + + | Address | [address] | | | [place] [address] | + + + | Home Phone [...] + + + | Author | [place] [employer] [facility] | + + + | Organization | [facility] [employer] [facility] | + [...] Providers + +------+ + | Care Financial Institution President Name | Role | Phone [...] Cerebri | | 2007 | Visit | [facility] [address] | [address] | (Primary Dx) | | | | Ave Mailcode: CH8N | [place], [place] | | | | | [facility] | [address] | | | | | and Healing, | [phone] | | | | | [facility] | | | | | | Floor [place], [place] | | | | | | [address] | | | | | | [phone] | | | +--------+---------+ + + + [...]
--- OUTSIDE RECORDS SUMMARY | ~2019-11-01 | XMS | Encounter Summary ---
Demographics + + + | Address | [address] | | | [place] [address] | + + + | Home Phone [...] + + + | Author | [place] [employer] [facility] | + + + | Organization | [facility] [facility] | + [...] [address] | | | 2006 | | [place] | [address] | | | | | Oculoplastics at | Rd [place], [place] | | | | | Maicol Perez [facility] | [address] | | | | | [address] | | | | | | Mailcode: PATTI | | | | | | [place], [place] | | | | | | [address] | | | | | | [phone] | | | +--------+ + + + [...]
--- OUTSIDE RECORDS SUMMARY | ~2019-11-01 | XMS | Encounter Summary ---
Demographics + + + | Address | [address] | | | [place] [address] | + + + | Home Phone [...] + + + | Author | [place] [employer] Science [facility] [place] | + + + | Organization | [facility] [employer] [facility] [...] Team Providers + +------+ + | Care Founder Ceo & President Name | Role | Phone | [...] [place], [place] | | | | | [facility] | [address] | | | | | and [facility], | [phone] | | | | | [facility] | | | | | | Floor [place], [place] | | | | | | [address] | | | | | | [phone] | | | +--------+ + + + [...]
--- OUTSIDE RECORDS SUMMARY | ~2019-11-01 | XMS | Clinical Summary ---
Demographics + + + | Address | [address] | | | [place] [address] | [...] Providers + +------+ + | Care Director Funeral Name | Role | Phone | + +------+ + | Dennis Maddox | PCP | | + +------+ + Source Comments [facility] is fully live on both [facility] and [facility] In[facility] Allergies + + + + + [...] | | | + +--------+ +--------+-------+---------+--------+ | MICRO COMPUTER DATA PROCESSOR MEDICAID | MICRO COMPUTER DATA PROCESSOR | [id number] | 11/28/19 | | | [...] | 1975 | [phone] | [place] [address] | | | [place]ne | | | 0 (Home) | | + +--------+ +--------+ + + Advance Directives + + + + + | Type | Date Recorded | Patient | Explanation | | | | Hvac Commercial Salesperson | | + + + + + | Advance | | | | | Directives and | | | | | Living Will | | | | + + + + + | Power of | | | | | Custom Studio Coordinator | | | | + + + [...]
--- OUTSIDE RECORDS SUMMARY | ~2019-11-01 | XMS | Encounter Summary ---
Demographics + + + | Address | [address] | | | [place] [address] | + + + | Home Phone [...] + + | Author | [place] [employer] [facility] | + + + | Organization | [facility] Podio Science [facility] [...] Team Providers + +------+ + | Care Construction And Maintenance Inspector Name | Role | Phone | + +------+ + PCP | Unavailable | + +------+ + Encounter Details +--------+ + + + + | Date | Type | Department | Care Team | Description | +--------+ + + + + | 06/25/ | Telephone | Neurosurgery at | Steph Reyes MD | | | 2010 | | [facility] [address] | | | | | | Yelena Mailcode: CH8N | | | | | | [facility] | | | | | | and Healing, | | | | | | Building 1, | | | | | | Floor [place], [place] | | | | | | [address] | | | | | | [phone] | | | +--------+ + + + [...]
--- OUTSIDE RECORDS SUMMARY | ~2019-11-01 | XMS | Encounter Summary ---
Demographics + + + | Address | [address] | | | [place] [address] | + + + | Home Phone [...] + + + | Author | [place] [employer] [facility] | + + + | Organization | [facility] Sassor [facility] [...] Providers + +------+ + | Care Inspector Aluminum Boat Name | Role | Phone | + [...] | Prescription | | 2012 | | [place]/Ophthalmol | MD Perry | | | | | leon at [facility] [address] | | | | | | Gianluca Kirk Mailcode: | | | | | | CH11P [facility] | | | | | | Health and [facility], | | | | | | Building | | | | | | [place], [place] | | | | | | [address] | | | | | | [phone] | | | +--------+ + + + [...]
--- OUTSIDE RECORDS SUMMARY | ~2019-11-01 | XMS | Encounter Summary ---
Demographics + + + | Address | [address] | | | [place] [address] | + + + | Home Phone [...] + + + | Author | [place] [employer] [facility] | + + + | Organization | [facility] Red Balloon [employer] [facility] | + + [...] Providers + +------+ + | Care Cut In Worker Name | Role | Phone | + +------+ + | Yeison Simms MD | PCP | Unavailable | + +------+ + Encounter Details +--------+ + + + + | Date | Type | Department | Care Team | Description | +--------+ + + + + | 05/26/ | Telephone | Neurosurgery at | Kiki Rosen, | | | 2008 | | [facility] [address] | FLORA JOSE | | | | | Yel[place] Mailcode: CH8N | Neurosurgery [address] | | | | | [facility] | [address] | | | | | and Healing, | [place], [place] | | | | | [place] [address] | [address] | | | | | Floor [place], [place] | | | | | | [address] | | | | | | [phone] | | | +--------+ + + + [...]
--- OUTSIDE RECORDS SUMMARY | ~2019-11-01 | XMS | Encounter Summary ---
Demographics + + + | Address | [address] | | | [place] [address] | + + + | Home Phone [...] + + + | Author | [facility] | | | and [place] | + + + | Organization | [facility] | [...] Providers + +------+ + | Care Clam Treader Name | Role | Phone | + +------+ + PCP | Unavailable | + +------+ + Encounter Details +--------+ + + + + | Date | Type | Department | Care Team | Description | +--------+ + + + + | 03/03/ | Emergency | [facility] | Artis Reyes DO | Pain, abdominal, | | 2012 | | MEDICAL CENTER | [address] | unknown etiology | | | | EMERGENCY CENTER | [place], [place] | | | | | [address] [facility] | [address] | | | | | [place], [place] | [phone] | | | | | [address] | | | | | | [phone] | | | +--------+ + + + [...]
--- OUTSIDE RECORDS SUMMARY | ~2019-11-01 | XMS | Encounter Summary ---
Demographics + + + | Address | [address] | | | [place] [address] | + + + | Home Phone [...] + + + | Author | [place] [employer] [facility] | + + + | Organization | [facility] [employer] [facility] | + [...] Providers + +------+ + | Care Tank Refinisher Name | Role | Phone | [...] | Headache | | 2005 | | [place]/Ophthalmol | MD Jordin | | | | | leon at [facility] [address] | | | | | | [address] Mailcode: | | | | | | CH11P [facility] | | | | | | Health and Healing, | | | | | | Building | | | | | | Floor [place], [place] | | | | | | [address] | | | | | | [phone] | | | +--------+ + + + [...]
--- OUTSIDE RECORDS SUMMARY | ~2019-11-01 | XMS | Encounter Summary ---
Demographics + + + | Address | [address] | | | [place] [address] | + + + | Home Phone [...] Organization | [facility] | [...] Providers + +------+ + | Care Bulk Folder Name | Role | Phone | + +------+ + PCP | Unavailable | + +------+ + Encounter Details +--------+ + + + + | Date | Type | Department | Care Team | Description | +--------+ + + + + | 07/19/ | Hospital | [facility] | Vern Rooney, | | | 1990 - | Encounter | MED CTR MED ONC | [address] | | | | | [address] | [place] | | | 07/21/ | | [place] [address] | [address] | | | 1990 | | [phone] | | | +--------+ + + + [...]
--- OUTSIDE RECORDS SUMMARY | ~2019-11-01 | XMS | Encounter Summary ---
Demographics + + + | Address | [address] | | | [place] [address] | + + + | Home Phone [...] | Organization | [facility] | | | and [...] Team Providers + +------+ + | Care Ethylbenzene Oxidizer Name | Role | Phone | + +------+ + PCP | Unavailable | + +------+ + Encounter Details +--------+ + + + + | Date | Type | Department | Care Team | Description | +--------+ + + + + | 03/03/ | Emergency | [facility] | Artis Reyes DO | Pain, abdominal, | | 2012 | | MEDICAL CENTER | [address] | unknown etiology | | | | EMERGENCY CENTER | [place], [place] | | | | | [address] [facility] | [address] | | | | | [place], [place] | [phone] | | | | | [address] | | | | | | [phone] | | | +--------+ + + + [...]
--- OUTSIDE RECORDS SUMMARY | ~2019-11-01 | XMS | Encounter Summary ---
Demographics + + + | Address | [address] | | | [place] [address] | + + + | Home Phone [...] | Organization | [facility] [...] Providers + +------+ + | Care Machine Ii Trimmer Name | Role | Phone | + +------+ + PCP | Unavailable | + +------+ + Encounter Details +--------+ + + + + | Date | Type | Department | Care Team | Description | +--------+ + + + + | 07/12/ | Hospital | [facility] | Conversion | | | 2010 | Encounter | [facility] | Transaction, | | | | | EMERGENCY CENTER | Provider Unknown | | | | | [address] | | | | | | [place] | (Fax) | | | | | [address] | | | | | | [phone] | | | +--------+ + + + [...]
--- OUTSIDE RECORDS SUMMARY | ~2019-11-01 | XMS | Encounter Summary ---
Demographics + + + | Address | [address] | | | [place] [address] | + + + | Home Phone [...] | Organization | [facility] | | [...] Providers + +------+ + | Care Ground Nuclear Weapons Assembly Officer Name | Role | Phone | + +------+ + PCP | Unavailable | + +------+ + Encounter Details +--------+ + + + + | Date | Type | Department | Care Team | Description | +--------+ + + + + | 07/07/ | Hospital | [facility] | | | | 1991 | Encounter | MED CTR EMERGENCY | | | | | | CENTER [address] | | | | | | [place] | | | | | | [address] | | | | | | [phone] | | | +--------+ + + + [...]
--- OUTSIDE RECORDS SUMMARY | ~2019-11-01 | XMS | Encounter Summary ---
Demographics + + + | Address | [address] | | | [place] [address] | + + + | Home Phone [...] + + + | Author | [place] [employer] [facility] | + + + | Organization | [facility] [place] [facility] Re[facility] [employer] [facility] | + + + | Address | Unknown | + + + | Phone | Unavailable | + + + Support + + +---------+ + | Name | Relationship | Address | Phone | + + +---------+ + | Ruby Au | ECON | Unknown | | + + +---------+ + Care Team Providers + +------+ + | Care Comfort Advisor Name | Role | Phone | + +------+ + | Yeison Simms MD | PCP | Unavailable | + +------+ + Reason for Visit + + + | Reason | Comments | + + + | Refill Request | refill on Stow | + + + Encounter Details +--------+--------+ + + + | Date | Type | Department | Care Team | Description | +--------+--------+ + + + | 08/27/ | Refill | Neurosurgery at | Sam Pedroza MD | Refill Request | | 2007 | | [facility] [address] | [address] | (refill on Stow) | | | | Ave Mailcode: CH8N | [place], [place] | | | | | [facility] | [address] | | | | | and Healing, | [phone] | | | | | [facility] | | | | | | Floor [place], [place] | | | | | | [address] | | | | | | [phone] | | | +--------+--------+ + + + [...]
--- OUTSIDE RECORDS SUMMARY | ~2019-11-01 | XMS | Encounter Summary ---
Demographics + + + | Address | [address] | | | [place] [address] | + + + | Home Phone [...] Organization | [facility] | | [...] Team Providers + +------+ + | Care Assembly Worker Name | Role | Phone | + +------+ + PCP | Unavailable | + +------+ + Encounter Details +--------+ + + + + | Date | Type | Department | Care Team | Description | +--------+ + + + + | 06/22/ | Hospital | [facility] | Yovanny Suazo, | | | 1991 | Encounter | MED CTR WOMENS | MD [address] | | | | | [facility] [address] | [address] | | | | | [place], | [place] [address] | | | | | [place] [address] | [phone] | | | | | [phone] | | | +--------+ + + + [...]
--- OUTSIDE RECORDS SUMMARY | ~2019-11-01 | XMS | Encounter Summary ---
Demographics + + + | Address | [address] | | | [place] [address] | + + + | Home Phone [...] + + + | Author | [place] [employer] [facility] | + + + | Organization | [facility] LOYAL[facility] | + [...] Team Providers + +------+ + | Care Rec Therapist Name | Role | Phone | [...] + + | 08/24/ | Emergency | [facility] | Tylor Mcclellan, | | | 2010 | | Department [address] | [address] | | | | | [address] | [place], [address] | | | | | [facility] | [facility] | | | | | [place], [place] | [place], [place] | | | | | [address] | [address] | | | | | [phone] | [phone] | | | | | | | [...] us take care of you at [facility] today. Follow up with primary care physician [...] | | + +---------+ + + | [facility] DEPARTMENT OF | | | | | [...]
--- OUTSIDE RECORDS SUMMARY | ~2019-11-01 | XMS | Encounter Summary ---
Demographics + + + | Address | [address] | | | [place] [address] | + + + | Home Phone [...] + + + | Author | [place] [employer] [facility] | + + + | Organization | [facility] [employer] [facility] [...] Team Providers + +------+ + | Care Chuck Boner Name | Role | Phone | + +------+ + | Dennis Maddox | PCP | | + +------+ + Encounter Details +--------+ + + + + | Date | Type | Department | Care Team | Description | +--------+ + + + + | 02/28/ | Emergency | [facility] Emergency | | | | 2013 - | | Department [address] | | | | | | [address] | | | | 03/01/ | | [facility] | | | | 2013 | | [place], [place] | | | | | | [address] | | | | | | [phone] | | | +--------+ + + + [...]
--- OUTSIDE RECORDS SUMMARY | ~2019-11-01 | XMS | Encounter Summary ---
Demographics + + + | Address | [address] | | | [place] [address] | + + + | Home Phone [...] | Organization | [facility] [...] Providers + +------+ + | Care Business Process Modeler Name | Role | Phone | + [...] | | | | | | [place] [address] | | | | | | [phone] | | | +--------+ + + + [...]
--- OUTSIDE RECORDS SUMMARY | ~2019-11-01 | XMS | Encounter Summary ---
Demographics + + + | Address | [address] | | | [place] [address] | + + + | Home Phone [...] + + + | Author | [place] [facility] | + + + | Organization | [facility] | + + + | Address | Unknown | + + + | Phone | Unavailable | + + + Support + + +---------+ + | Name | Relationship | Address | Phone | + + +---------+ + | Ruby Au | ECON | Unknown | | + + +---------+ + Care Team Providers + +------+ + | Care Ux Research Associate Name | Role | Phone | + +------+ + | Brenden Benavides MD | PCP | | + +------+ + Encounter Details +--------+ + + + + | Date | Type | Department | Care Team | Description | +--------+ + + + + | 09/28/ | Documentati | [facility] | Brad Currie MD | | | 2006 | on | [place] | | | | | | Neuro-Ophthalmology | | | | | | [address] | | | | | | [place] Mailcode: CEI | | | | | | Mailcode: PATTI | | | | | | [place], [place] | | | | | | [address] | | | | | | [phone] | | | +--------+ + + + [...]
--- OUTSIDE RECORDS SUMMARY | ~2019-11-01 | XMS | Encounter Summary ---
Demographics + + + | Address | [address] | | | [place] [address] | + + + | Home Phone [...] + + + | Author | [place] [employer] [facility] | + + + | Organization | [facility] [employer] [facility] [...] Team Providers + +------+ + | Care Planting Material Remover Name | Role | Phone | + [...] Refill Request | | 2012 | | [place]/Ophthalmol | MD Perry | | | | | leon at [facility] [address] | | | | | | [address] Mailcode: | | | | | | CH11P [facility] | | | | | | Health and Healing, | | | | | | [facility] | | | | | | Floor [place], [place] | | | | | | [address] | | | | | | [phone] | | | +--------+--------+ + + + [...]
--- OUTSIDE RECORDS SUMMARY | ~2019-11-01 | XMS | Encounter Summary ---
Demographics + + + | Address | [address] | | | [place] [address] | + + + | Home Phone [...] + | Organization | [facility] | [...] Providers + +------+ + | Care Leather Etcher Name | Role | Phone | + +------+ + PCP | Unavailable | + +------+ + Encounter Details +--------+ + + + + | Date | Type | Department | Care Team | Description | +--------+ + + + + | 06/22/ | Hospital | [facility] | Yovanny Suazo, | | | 1991 | Encounter | MED CTR WOMENS | MD [address] | | | | | [facility]ALTH [facility] [address] | [address] | | | | | [place], | [place] [address] | | | | | [place] [address] | [phone] | | | | | [phone] | | | +--------+ + + + [...]
--- OUTSIDE RECORDS SUMMARY | ~2019-11-01 | XMS | Encounter Summary ---
Demographics + + + | Address | [address] | | | [place] [address] | + + + | Home Phone [...] + + + | Author | [place] [employer] [facility] | + + + | Organization | [facility] [employer] [facility] | + [...] Team Providers + +------+ + | Care Instructional Services Librarian Name | Role | Phone | + +------+ + | Brenden Benavides MD | PCP | | + +------+ + Encounter Details +--------+ + + + + | Date | Type | Department | Care Team | Description | +--------+ + + + + | 02/22/ | Telephone | [facility] | Brad Currie MD | | | 2006 | | [place] | | | | | | Neuro-Ophthalmology | | | | | | [address] | | | | | | [place] Mailcode: CEI | | | | | | Mailcode: [facility]I | | | | | | [place], [place] | | | | | | [address] | | | | | | [phone] | | | +--------+ + + + [...]
--- OUTSIDE RECORDS SUMMARY | ~2019-11-01 | XMS | Encounter Summary ---
Demographics + + + | Address | [address] | | | [place] [address] | + + + | Home Phone [...] + + | Organization | [facility] | | | [...] Team Providers + +------+ + | Care Soils Analyst Name | Role | Phone | + +------+ + PCP | Unavailable | + +------+ + Encounter Details +--------+ + + + + | Date | Type | Department | Care Team | Description | +--------+ + + + + | 09/20/ | Hospital | [facility] | | | | 1991 | Encounter | MED CTR WOMENS | | | | | | HEALTH [facility] [address] | | | | | | [place], | | | | | | [place] [address] | | | | | | [phone] | | | +--------+ + + + [...]
--- OUTSIDE RECORDS SUMMARY | ~2019-11-01 | XMS | Encounter Summary ---
Demographics + + + | Address | [address] | | | [place] [address] | + + + | Home Phone [...] + + + | Author | [place] [employer] [facility] | + + + | Organization | [facility] | + [...] Team Providers + +------+ + | Care Shank Maker Name | Role | Phone | [...] Refill Request | | 2012 | | [place]/Ophthalmol | MD Perry | | | | | leon at [facility] [address] | | | | | | [address] Mailcode: | | | | | | CH11P [facility] | | | | | | Health and Healing, | | | | | | [facility] | | | | | | Floor [place], [place] | | | | | | [address] | | | | | | [phone] | | | +--------+--------+ + + + [...]
--- OUTSIDE RECORDS SUMMARY | ~2019-11-01 | XMS | Encounter Summary ---
Demographics + + + | Address | [address] | | | [place] [address] | + + + | Home Phone [...] | Organization | [facility] [...] Team Providers + +------+ + | Care Industrial/Organizational Psychologist Name | Role | Phone | + +------+ + PCP | Unavailable | + +------+ + Encounter Details +--------+ + + + + | Date | Type | Department | Care Team | Description | +--------+ + + + + | 07/19/ | Hospital | [facility] | Vern Rooney, | | | 1990 - | Encounter | MED CTR MED ONC | [address] | | | | | [address] | [place] | | | 07/21/ | | [place] [address] | [address] | | | 1990 | | [phone] | | | +--------+ + + + [...]
--- OUTSIDE RECORDS SUMMARY | ~2019-11-01 | XMS | Encounter Summary ---
Demographics + + + | Address | [address] | | | [place] [address] | [...] + + | Author | [place] [employer] [facility] | + + + | Organization | [facility] [employer] [facility] | + [...] Team Providers + +------+ + | Care Septic Tank Setter Name | Role | Phone [...] | | | | | Stay [address] [facility] | | | | | | [address] | | | | | | Mailcode: VIN65 | | | | | | [place] | | | | | | [address] [place], [place] | | | | | | [address] | | | | | | [phone] | | | +--------+ + + + [...]
--- OUTSIDE RECORDS SUMMARY | ~2019-11-01 | XMS | Encounter Summary ---
Demographics + + + | Address | [address] | | | [place] [address] | + + + | Home Phone [...] + + + | Author | [place] TM [facility] | + + + | Organization | [facility] [employer] [facility] | + [...] Team Providers + +------+ + | Care Adjuster Arbitrator Name | Role | Phone | + [...] | | | REFERRAL TO | | [place], [place] | | | | | NEUROINTERVE | | [address] | | | | | NTIONAL | | Phone: | | | | | RADIOLOGY | | [phone] | | | | | PRACTICE | | Fax: | | | | | | | [phone] | +--------+--------+ + + + + Reason [...] | | | | Rd Mailcode:OP14B | [place], [place] | | | | | Outpatient Clinic | [address] | | | | | Building [place], | [phone] | | | | | [place] [address] | | | | | | [phone] | | | +--------+---------+ + + + [...] resident s note. CASIMIRO PAYTON MD NEUROSURGERY [employer] [address] [facility] [place] [address] Pascual Ballard - 12:00 PM [...] spots" and "tunnel vision." Last saw an factory supervisor in [place] 2 months ago. Reportedl y, this showed [...] Patient was also given a prescription for [facility] for CAPONE until she establishs care [...]
--- OUTSIDE RECORDS SUMMARY | ~2019-11-01 | XMS | Encounter Summary ---
Demographics + + + | Address | [address] | | | [place] [address] | + + + | Home Phone [...] | Organization | [facility] [...] Providers + +------+ + | Care Four Roll Calender Operator Name | Role | Phone | + +------+ + PCP | Unavailable | + +------+ + Encounter Details +--------+ + + + + | Date | Type | Department | Care Team | Description | +--------+ + + + + | 07/10/ | Emergency | [facility] | [address] | Headache; Benign | | 2012 | | MEDICAL CENTER | [place] [address] | intracranial | | | | EMERGENCY CENTER | [address] | hypertension; Back | | | | [address] | [place] [address] | pain | | | | [place], [place] | [phone] | | | | | [address] | | | | | | [phone] | | | +--------+ + + + [...] | + + + | ANNABELLA Waters [facility] CT HEAD WO CONTRAST HISTORY: 37 [...]
--- OUTSIDE RECORDS SUMMARY | ~2019-11-01 | XMS | Encounter Summary ---
Demographics + + + | Address | [address] | | | [place] [address] | + + + | Home Phone [...] Organization | [facility] [...] Team Providers + +------+ + | Care Batcher Operator Name | Role | Phone | + +------+ + PCP | Unavailable | + +------+ + Encounter Details +--------+ + + + + | Date | Type | Department | Care Team | Description | +--------+ + + + + | 07/14/ | Hospital | [facility] | | | | 1998 | Encounter | MED CTR EMERGENCY | | | | | | CENTER [address] | | | | | | [place] | | | | | | [address] | | | | | | [phone] | | | +--------+ + + + [...]
--- OUTSIDE RECORDS SUMMARY | ~2019-11-01 | XMS | Encounter Summary ---
Demographics + + + | Address | [address] | | | [place] [address] | + + + | Home Phone [...] + + + | Author | [place] [facility] | + + + | Organization | [facility] | + + + | Address | Unknown | + + + | Phone | Unavailable | + + + Support + + +---------+ + | Name | Relationship | Address | Phone | + + +---------+ + | Ruby Au | ECON | Unknown | | + + +---------+ + Care Team Providers + +------+ + | Care Pony Trimmer Name | Role | Phone | [...] | | | | | cerebri | [address] | | | | | | Procedures | Ave | | | | | | CONSULT TO | [place], [place] | | | | | | [facility] | [address] | | | | | | | Phone: | | | | | | | [phone] | | | | | | | Fax: | | | | | | | [phone] | | +--------+--------+ + + + + [...] 2005 | Visit | [address] | [address] | (Primary Dx) | | | | Rd Mailcode:OP14B | [place], [place] | | | | | [facility] | [address] | | | | | [place], [place] | [phone] | | | | | [address] | | | | | | [phone] | | | +--------+---------+ + + + [...] pressu re. Referral to Dr. Maloney in [place] where a lumboperitoneal shunt was placed and subsequently explanted due to infection and migration of the catheter tip from the peritoneal space. She feels that her symptoms were helped at the time of the placement of the shunt; the head aches and visual problems have worsened since shunt removal. She has opted to come to [facility] rather than to return to [place] based on travel convenience. Review of Systems: [...] without; Neuro-ophthalmology consultation. [facility] Plan of Treatment Not [...] | | + +---------+ + + | [facility] DEPARTMENT OF | | | | | RADIOLOGY | | | | + +---------+ + + documented in this encounter Visit Diagnoses + + | Diagnosis | + + | Pseudotumor cerebri - Primary Benign intracranial hypertension | + + documented in this encounter
--- OUTSIDE RECORDS SUMMARY | ~2019-11-01 | XMS | Encounter Summary ---
Demographics + + + | Address | [address] | | | [place] [address] | + + + | Home Phone [...] + + + | Author | [place] [employer] [facility] | + + + | Organization | [facility] [...] Team Providers + +------+ + | Care Milk Deliverer Name | Role | Phone | + +------+ + | Yeison Simms MD | PCP | Unavailable | + +------+ + Encounter Details +--------+---------+ + + + | Date | Type | Department | Care Team | Description | +--------+---------+ + + + | 08/19/ | Office | Neurosurgery at | Sam Pedroza MD | Pseudotumor Cerebri | | 2007 | Visit | [facility] [address] | [address] | (Primary Dx) | | | | Ave Mailcode: CH8N | [place], [place] | | | | | [facility] | [address] | | | | | and Healing, | [phone] | | | | | [facility] | | | | | | Floor [place], [place] | | | | | | [address] | | | | | | [phone] | | | +--------+---------+ + + + [...]
--- OUTSIDE RECORDS SUMMARY | ~2019-11-01 | XMS | Encounter Summary ---
Demographics + + + | Address | [address] | | | [place] [address] | + + + | Home Phone [...] + | Organization | [facility] | | | and [...] Providers + +------+ + | Care Civil Service Worker Name | Role | Phone | + +------+ + PCP | Unavailable | + +------+ + Encounter Details +--------+ + + + + | Date | Type | Department | Care Team | Description | +--------+ + + + + | 10/14/ | Hospital | [facility] | | | | 1991 | Encounter | MED CTR WOMENS | | | | | | HEALTH SV [address] | | | | | | [place], | | | | | | [place] [address] | | | | | | [phone] | | | +--------+ + + + [...]
--- OUTSIDE RECORDS SUMMARY | ~2019-11-01 | XMS | Encounter Summary ---
Demographics + + + | Address | [address] | | | [place] [address] | + + + | Home Phone [...] Organization | [facility] | [...] Team Providers + +------+ + | Care Naphthalene Operator Helper Name | Role | Phone | + +------+ + PCP | Unavailable | + +------+ + Encounter Details +--------+ + + + + | Date | Type | Department | Care Team | Description | +--------+ + + + + | 10/25/ | Hospital | [facility] | | | | 1991 | Encounter | MED CTR EMERGENCY | | | | | | CENTER [address] | | | | | | [place] | | | | | | [address] | | | | | | [phone] | | | +--------+ + + + [...]
--- OUTSIDE RECORDS SUMMARY | ~2019-11-01 | XMS | Encounter Summary ---
Demographics + + + | Address | [address] | | | [place] [address] | + + + | Home Phone [...] Organization | [facility] | | | and [place] | + + + | Address | Unknown | + + + | Phone | Unavailable | + + + Support + + +---------+ + | Name | Relationship | Address | Phone | + + +---------+ + | Saad Chamorro | ECON | Unknown | | + + +---------+ + Care Team Providers + +------+ + | Care Link Trainer Operator Name | Role | Phone | + +------+ + PCP | Unavailable | + +------+ + Encounter Details +--------+ + + + + | Date | Type | Department | Care Team | Description | +--------+ + + + + | 05/15/ | Hospital | [facility] | | | | 1991 | Encounter | MED CTR XRAY [address] | | | | | | [place] | | | | | | [place] [address] | | | | | | [phone] | | | +--------+ + + + [...]
--- OUTSIDE RECORDS SUMMARY | ~2019-11-01 | XMS | Encounter Summary ---
Demographics + + + | Address | [address] | | | [place] [address] | + + + | Home Phone [...] | Organization | [facility] | [...] Providers + +------+ + | Care Electronic Science Teacher Name | Role | Phone | + +------+ + PCP | Unavailable | + +------+ + Encounter Details +--------+ + + + + | Date | Type | Department | Care Team | Description | +--------+ + + + + | 11/22/ | Hospital | [facility] | | | | 1995 | Encounter | MED CTR EMERGENCY | | | | | | CENTER [address] | | | | | | [place] | | | | | | [address] | | | | | | [phone] | | | +--------+ + + + [...]
--- OUTSIDE RECORDS SUMMARY | ~2019-11-01 | XMS | Encounter Summary ---
Demographics + + + | Address | [address] | | | [place] [address] | + + + | Home Phone [...] + + + | Author | [place] [employer] [facility] | + + + | Organization | [facility] [employer] [facility] | [...] Providers + +------+ + | Care Contract Programmer Name | Role | Phone | [...] | | | Ave Mailcode: CH8N | [place], [place] | | | | | [facility] | [address] | | | | | and Healing, | [phone] | | | | | [facility] | | | | | | Floor [facility] [place] | | | | | | [address] | | | | | | [phone] | | | +--------+ + + + [...]
--- OUTSIDE RECORDS SUMMARY | ~2019-11-01 | XMS | Encounter Summary ---
Demographics + + + | Address | [address] | | | [place] [address] | + + + | Home Phone [...] Organization | [facility] [...] Providers + +------+ + | Care Sharepoint Analyst Name | Role | Phone | + +------+ + PCP | Unavailable | + +------+ + Encounter Details +--------+ + + + + | Date | Type | Department | Care Team | Description | +--------+ + + + + | 09/30/ | Hospital | [facility] | | | | 1991 | Encounter | MED CTR WOMENS | | | | | | HEALTH SV [address] | | | | | | [place], | | | | | | [place] [address] | | | | | | [phone] | | | +--------+ + + + [...]
--- OUTSIDE RECORDS SUMMARY | ~2019-11-01 | XMS | Encounter Summary ---
Demographics + + + | Address | [address] | | | [place] [address] | + + + | Home Phone [...] + + + | Author | [place] [employer] [facility] | + + + | Organization | [facility] [employer] [facility] [employer] [facility] | + + [...] Providers + +------+ + | Care Ice Cream Freezer Name | Role | Phone | + [...] | | | | | hypertension | [place], [place] | [place], [place] | | | | | Procedures | [address] | [address] | | | | | REQUEST TO | Phone: | Phone: | | | | | SURGERY | [phone] | [phone] | | | | | BUN MACHINE OPERATOR | Fax: | Fax: | | | | | MA INSTALL | [phone] | [phone] | | | | | SPINAL | [...] | | | Ave Mailcode: CH8N | [place], [place] | | | | | [facility] | [address] | | | | | and [place], | [phone] | | | | | [facility] | | | | | | Floor [place], [place] | | | | | | [address] | | | | | | [phone] | | | +--------+ + + + [...]
--- OUTSIDE RECORDS SUMMARY | ~2019-11-01 | XMS | Encounter Summary ---
Demographics + + + | Address | [address] | | | [place] [address] | + + + | Home Phone [...] | Organization | [facility] | | [...] Providers + +------+ + | Care Print Support Specialist Name | Role | Phone | + +------+ + PCP | Unavailable | + +------+ + Encounter Details +--------+ + + + + | Date | Type | Department | Care Team | Description | +--------+ + + + + | 09/07/ | Hospital | [facility] | | | | 1991 | Encounter | MED CTR EMERGENCY | | | | | | CENTER [address] | | | | | | [place] | | | | | | [address] | | | | | | [phone] | | | +--------+ + + + [...]
--- OUTSIDE RECORDS SUMMARY | ~2019-11-01 | XMS | Encounter Summary ---
Demographics + + + | Address | [address] | | | [place] [address] | + + + | Home Phone [...] + + + | Author | [place] [employer] [facility] | + + + | Organization | [facility] | [...] Providers + +------+ + | Care Supervisor Chassis Assembly Name | Role | Phone | + +------+ + | Dennis Maddox | PCP | | + +------+ + Encounter Details +--------+ + + + + | Date | Type | Department | Care Team | Description | +--------+ + + + + | 03/15/ | Telephone | [facility] | Ronaldo Martin MD | | | 2012 | | [place]/Ophthalmol | [facility] | | | | | leon at [facility] [address] | [address] [place] [address] | | | | | [address] Mailcode: | [place] [address] | | | | | CH11P [facility] | [phone] | | | | | Health and Healing, | | | | | | | | | | | | [place], [place] | | | | | | [address] | | | | | | [phone] | | | +--------+ + + + [...]
--- OUTSIDE RECORDS SUMMARY | ~2019-11-01 | XMS | Encounter Summary ---
Demographics + + + | Address | [address] | | | [place] [address] | + + + | Home Phone [...] + + + | Author | [place] [employer] [facility] | + + + | Organization | [facility] [...] Team Providers + +------+ + | Care As400 Consultant Name | Role | Phone | [...] | | Ave Mailcode: CH8N | [place], [place] | | | | | [facility] | [address] | | | | | and Healing, | [phone] | | | | | [facility] | | | | | | Floor [place], [place] | | | | | | [address] | | | | | | [phone] | | | +--------+--------+ + + + [...]
--- OUTSIDE RECORDS SUMMARY | ~2019-11-01 | XMS | Encounter Summary ---
Demographics + + + | Address | [address] | | | [place] [address] | + + + | Home Phone [...] + + + | Author | [place] [facility] | + + + | Organization | [facility] [employer] [facility] | [...] Providers + +------+ + | Care Digital Media Associate Name | Role | Phone | [...] | | | Ave Mailcode: CH8N | [place], [place] | | | | | [facility] | [address] | | | | | and Healing, | [phone] | | | | | [facility] | | | | | | Floor [place], [place] | | | | | | [address] | | | | | | [phone] | | | +--------+ + + + [...]
--- OUTSIDE RECORDS SUMMARY | ~2019-11-01 | XMS | Encounter Summary ---
Demographics + + + | Address | [address] | | | [place] [address] | + + + | Home Phone [...] Organization | [facility] | | [...] Team Providers + +------+ + | Care Dietetic Technician Registered Name | Role | Phone | + +------+ + PCP | Unavailable | + +------+ + Encounter Details +--------+ + + + + | Date | Type | Department | Care Team | Description | +--------+ + + + + | 10/04/ | Hospital | [facility] | | | | 1991 | Encounter | MED CTR WOMENS | | | | | | HEALTH SV [address] | | | | | | [place], | | | | | | [place] [address] | | | | | | [phone] | | | +--------+ + + + [...]
--- OUTSIDE RECORDS SUMMARY | ~2019-11-01 | XMS | Encounter Summary ---
Demographics + + + | Address | [address] | | | [place] [address] | + + + | Home Phone [...] | Organization | [facility] [...] + + | 07/14/ | Hospital | [facility] | | | | 1998 | Encounter | MED CTR EMERGENCY | | | | | | CENTER [address] | | | | | | [place] | | | | | | [address] | | | | | | [phone] | | | +--------+ + + + [...]
--- OUTSIDE RECORDS SUMMARY | ~2019-11-01 | XMS | Encounter Summary ---
Demographics + + + | Address | [address] | | | [place] [address] | + + + | Home Phone [...] + | Organization | [facility] | | | and [...] Team Providers + +------+ + | Care Installation And Service Technician Name | Role | Phone | + +------+ + PCP | Unavailable | + +------+ + Encounter Details +--------+ + + + + | Date | Type | Department | Care Team | Description | +--------+ + + + + | 08/16/ | Hospital | [facility] | | | | 1990 | Encounter | MED CTR EMERGENCY | | | | | | CENTER [address] | | | | | | [place] | | | | | | [address] | | | | | | [phone] | | | +--------+ + + + [...]
--- OUTSIDE RECORDS SUMMARY | ~2019-11-01 | XMS | Encounter Summary ---
Demographics + + + | Address | [address] | | | [place] [address] | + + + | Home Phone [...] Organization | [facility] | | | and [place] | [...] Team Providers + +------+ + | Care Pick Out Hand Name | Role | Phone | + +------+ + PCP | Unavailable | + +------+ + Encounter Details +--------+ + + + + | Date | Type | Department | Care Team | Description | +--------+ + + + + | 08/12/ | Hospital | [facility] | Jenn Oreilly, | | | 2012 | Encounter | HOSPITAL EMERGENCY | [facility] [place] | | | | | CENTER [address] | [place] | | | | | [place] | [id number] | | | | | [address] | | | | | | [phone] | | | +--------+ + + + [...]
--- OUTSIDE RECORDS SUMMARY | ~2019-11-01 | XMS | Encounter Summary ---
Demographics + + + | Address | [address] | | | [place] [address] | + + + | Home Phone [...] + | Organization | [facility] [...] Providers + +------+ + | Care Second Time Worker Name | Role | Phone | [...] left hand | [address] | | | | n | Weakness of | [address] | [place], | | | | | both hands | [place], | [place] [address] | | | | | [place] left | [place] [address] | Phone: | | | | | wrist Pain | Phone: | [phone] | | | | | of right | [phone] | Fax: | | | | | thumb | Fax: | [phone] | | | | | Trigger | [phone] | | | | | | finger [...] | | | | | Trigger | [address] | [place] | | | | | finger of | [place], | [place] | | | | | right thumb | [place] [address] | [address] | | | | | | Phone: | Phone: | | | | | | [phone] | [phone] | | | | | | Fax: | Fax: | | | | | | [phone] | [phone] | +--------+ + + + + + [...] | | Rehabilitatio | tunnel | PA-C [address] | [address] | | | | n | syndrome on | | [place], | | | | | left | [place] | [place] [address] | | | | | | WAY | Phone: | | | | | | [place], | [phone] | | | | | | [place] [address] | Fax: | | | | | | Phone: | [phone] | | | | | | [phone] | | | | | | | Fax: | | | | | | | [phone] | | +--------+--------+ + + + + Encounter Details +--------+---------+ + + + | Date | Type | Department | Care Team | Description | +--------+---------+ + + + | 01/03/ | Office | [facility] [place] | Amanuel Jennings, | Numbness of left | | 2019 | Visit | PHYSIATRY [address] | MD [address] | hand (Primary Dx); | | | | [place], | [place], [place] | Weakness of both | | | | [place] [address] | [address] | hands; Mass of left | | | | [phone] | | wrist; Pain of right | [...] encounter Patient Instructions Patient Instructions Adelaide Santa, Board Of [employer] Secretary - 01/03/2019 1:00 PM Rina chowdhury o [...] Acute low back pain Antisocial personality disorder ([facility]) Anxiety disorder Asthma Benign essential hypertension Chronic back pain Chronic obstructive lung disease (HCC) Chronic posttraumatic stress disorder Depressive disorder Diabetes mellitus type 2 in obese ([facility]) Gastroesophageal reflux disease Heroin dependence ([facility]) Hoarse Hypertensive disorder Insomnia with sleep apnea IV drug abuse ([facility]) Low back strain Numbness of left hand Obstructive sleep apnea of adult Opioid dependence on agonist therapy ([facility]) Other chronic pain Panic disorder without agoraphobia with severe panic attacks Polysubstance dependence ([facility]) Sedative, hypnotic or anxiolytic dependence, 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 4/5 hand train caller on the left Reflexes: 2+ normal and [...] Plan 1. The differential diagnosis for Annabella uA's symptoms included, but are not limit ed to: recurrent carpal tunnel, peripheral neuropathy, and cervical radiculopathy. Annabella uA's clinical presentation is most consistent with recurrent [...] scribed by in my presence, Adelaide Santa, Board Of [employer] Secretary and are both accurate and comp lete. [...]
--- OUTSIDE RECORDS SUMMARY | ~2019-11-01 | XMS | Encounter Summary ---
Demographics + + + | Address | [address] | | | [place] [address] | + + + | Home Phone [...] + + + | Author | [place] [employer] [facility] | + + + | Organization | [facility] [employer] [facility] | + + + | Address | Unknown | + + + | Phone | Unavailable | + + + Support + + +---------+ + | Name | Relationship | Address | Phone | + + +---------+ + | Ruby Au | ECON | Unknown | | + + +---------+ + Care Team Providers + +------+ + | Care Blade Bender Furnace Tender Name | Role | Phone | + +------+ + | Dennis Maddox | PCP | | + +------+ + Encounter Details +--------+ + + + + | Date | Type | Department | Care Team | Description | +--------+ + + + + | 03/15/ | Telephone | [facility] | Ronaldo Martin MD | | | 2012 | | [place]/Ophthalmol | [facility] | | | | | leon at [facility] [address] | [address] [place] [address] | | | | | Gianluca Kirk Mailcode: | [place] [address] | | | | | CH11P [facility] | [phone] | | | | | Health and Healing, | | | | | | | | | | | | [place], [place] | | | | | | [address] | | | | | | [phone] | | | +--------+ + + + [...]
--- OUTSIDE RECORDS SUMMARY | ~2019-11-01 | XMS | Encounter Summary ---
Demographics + + + | Address | [address] | | | [place] [address] | + + + | Home Phone [...] | Organization | [facility] | | [...] Providers + +------+ + | Care Test Data Developer Name | Role | Phone | [...] | | [place] | [place] [address] | | | | | [address] | [phone] | | | | | [phone] | | | +--------+ + + + [...]
--- OUTSIDE RECORDS SUMMARY | ~2019-11-01 | XMS | Encounter Summary ---
Demographics + + + | Address | [address] | | | [place] [address] | + + + | Home Phone [...] | Organization | [facility] [...] + +------+ + | Care Cash Applications Analyst Name | Role | Phone | + +------+ + PCP | Unavailable | + +------+ + Encounter Details +--------+ + + + + | Date | Type | Department | Care Team | Description | +--------+ + + + + | 10/22/ | Hospital | [facility] | | | | 1991 - | Encounter | MED CTR WOMENS | | | | | | [facility] [address] | | | | 10/24/ | | [place], | | | | 1991 | | [place] [address] | | | | | | [phone] | | | +--------+ + + + [...]
--- OUTSIDE RECORDS SUMMARY | ~2019-11-01 | XMS | Encounter Summary ---
Demographics + + + | Address | [address] | | | [place] [address] | + + + | Home Phone [...] + + | Author | [place] [employer] [facility] | + + + | Organization | [facility] [employer] [facility] | + [...] Providers + +------+ + | Care Splitter Machine Name | Role | Phone | [...] | | | Ave Mailcode: CH8N | [place], [place] | | | | | [facility] | [address] | | | | | and Healing, | [phone] | | | | | [facility] | | | | | | Floor [place], [place] | | | | | | [address] | | | | | | [phone] | | | +--------+ + + + [...]
--- OUTSIDE RECORDS SUMMARY | ~2019-11-01 | XMS | Encounter Summary ---
Demographics + + + | Address | [address] | | | [place] [address] | + + + | Home Phone [...] + + | Author | [place] [employer] [facility] | + + + | Organization | [facility] [employer] [facility] | + [...] Providers + +------+ + | Care Hands Hanger Name | Role | Phone | [...] Cerebri | | 2006 | Visit | [place] | | (Primary Dx) | | | | Neuro-Ophthalmology | | | | | | [address] | | | | | | [place] Mailcode: CEI | | | | | | Mailcode: [facility] | | | | | | [place], [place] | | | | | | [address] | | | | | | [phone] | | | +--------+---------+ + + + [...] by: CASIMIRO PAYTON MD [address] [place] [address] Per [facility] chart note taken this morning by . Symptoms: Patient specific problem noted by patient: transient visual loss HPI: 31 y.o. year old female from [place] : Patient presents with: Transient visual loss [...] Brad Currie MD Neuro-Ophthalmology and Cerebrovascular Disease Cardiovascular Rn of Ophthalmology, Neurology, and Neurosurgery documented [...]
--- OUTSIDE RECORDS SUMMARY | ~2019-11-01 | XMS | Encounter Summary ---
Demographics + + + | Address | [address] | | | [place] [address] | + + + | Home Phone [...] + + + | Author | [place] [employer] [facility] | + + + | Organization | [facility] [employer] [facility] [...] Team Providers + +------+ + | Care Nocturnist Name | Role | Phone | + [...] | | [place] Mailcode:OP14B | [place], | | | | | [place] | [place] [address] | | | | | [place], [place] | | | | | | [address] | | | | | | [phone] | | | +--------+ + + + [...]
--- OUTSIDE RECORDS SUMMARY | ~2019-11-01 | XMS | Encounter Summary ---
Demographics + + + | Address | [address] | | | [place] [address] | + + + | Home Phone [...] Organization | [facility] | [...] Team Providers + +------+ + | Care Dam Worker Name | Role | Phone | [...] | | [place] | [place] [address] | | | | | [address] | [phone] | | | | | [phone] | | | +--------+ + + + [...]
--- OUTSIDE RECORDS SUMMARY | ~2019-11-01 | XMS | Encounter Summary ---
Demographics + + + | Address | [address] | | | [place] [address] | + + + | Home Phone [...] [facility] and [facility] [...] Providers + +------+ + | Care Electronics Processor Name | Role | Phone | + +------+ + PCP | Unavailable | + +------+ + Encounter Details +--------+ + + + + | Date | Type | Department | Care Team | Description | +--------+ + + + + | 07/07/ | Hospital | [facility] | | | | 1991 | Encounter | MED CTR EMERGENCY | | | | | | CENTER [address] | | | | | | [place] | | | | | | [address] | | | | | | [phone] | | | +--------+ + + + [...]
--- OUTSIDE RECORDS SUMMARY | ~2019-11-01 | XMS | Encounter Summary ---
Demographics + + + | Address | [address] | | | [place] [address] | + + + | Home Phone [...] | [facility] | [...] Providers + +------+ + | Care Pattern Chain Maker Supervisor Name | Role | Phone | + +------+ + PCP | Unavailable | + +------+ + Encounter Details +--------+ + + + + | Date | Type | Department | Care Team | Description | +--------+ + + + + | 10/20/ | Hospital | [facility] | | | | 1999 | Encounter | MED CTR EMERGENCY | | | | | | CENTER [address] | | | | | | [place] | | | | | | [address] | | | | | | [phone] | | | +--------+ + + + [...]
--- OUTSIDE RECORDS SUMMARY | ~2019-11-01 | XMS | Clinical Summary ---
Demographics + + + | Address | [address] | | | [place] [address] | + + + | Home Phone [...] Organization | [facility] and [facility] [...] Providers + +------+ + | Care Fish Pitcher Name | Role | Phone | [...] +---------+--------+ | [place] | MEDICA | [id number] | 11/09/ | [phone] | | Medica | | | ID [place] | | 2018-P | 2 | | id | | | PLUS | | resent | | | | + +--------+ +--------+ +---------+--------+ | [facility] | IHS | [id number] | 11/08/ | | | Indemn | [...] | 1975 | [phone] | [place] [address] | | | rene | | | 5 (Home) | | + +--------+ +--------+ + + Advance Directives + + + + + | Type | Date Recorded | Patient | Explanation | | | | Basic Combatant Swimmer | | + + + + + | Power of | | | | | Stopper Maker | | | | + + + + + | Advance | | | | | Directive | | | | + + + + +
--- OUTSIDE RECORDS SUMMARY | ~2019-11-01 | XMS | Encounter Summary ---
Demographics + + + | Address | [address] | | | [place] [address] | + + + | Home Phone [...] + + + | Author | [place] [employer] [facility] | + + + | Organization | [facility] [email or web address] [facility] | + + + | Address | Unknown | + + + | Phone | Unavailable | + + + Support + + +---------+ + | Name | Relationship | Address | Phone | + + +---------+ + | Ruby Au | ECON | Unknown | | + + +---------+ + Care Team Providers + +------+ + | Care Dials Supervisor Name | Role | Phone | [...] Refill Request | | 2006 | | [place] | [address] [facility] | | | | | Oculoplastics at | Rd [place], [place] | | | | | [address] | [address] | | | | | [address] | | | | | | Mailcode: CEI | | | | | | [place], [place] | | | | | | [address] | | | | | | [phone] | | | +--------+ + + + [...]
--- OUTSIDE RECORDS SUMMARY | ~2019-11-01 | XMS | Encounter Summary ---
Demographics + + + | Address | [address] | | | [place] [address] | + + + | Home Phone [...] | [facility] | | | [...] Team Providers + +------+ + | Care Entomology Professor Name | Role | Phone | + +------+ + PCP | Unavailable | + +------+ + Encounter Details +--------+ + + + + | Date | Type | Department | Care Team | Description | +--------+ + + + + | 10/12/ | Hospital | [facility] | | | | 1991 | Encounter | MED CTR WOMENS | | | | | | HEALTH [address] | | | | | | [place], | | | | | | [place] [address] | | | | | | [phone] | | | +--------+ + + + [...]
--- OUTSIDE RECORDS SUMMARY | ~2019-11-01 | XMS | Encounter Summary ---
Demographics + + + | Address | [address] | | | [place] [address] | + + + | Home Phone [...] Team Providers + +------+ + | Care 3D Specialist Name | Role | Phone | + +------+ + PCP | Unavailable | + +------+ + Encounter Details +--------+ + + + + | Date | Type | Department | Care Team | Description | +--------+ + + + + | 04/18/ | Hospital | [facility] | | | | 1991 | Encounter | MED CTR EMERGENCY | | | | | | CENTER [address] | | | | | | [place] | | | | | | [address] | | | | | | [phone] | | | +--------+ + + + [...]
--- OUTSIDE RECORDS SUMMARY | ~2019-11-01 | XMS | Encounter Summary ---
Demographics + + + | Address | [address] | | | [place] [address] | + + + | Home Phone [...] [facility] | | [...] + + | 10/27/ | Hospital | [facility] | | | | 1990 | Encounter | MED CTR EMERGENCY | | | | | | CENTER [address] | | | | | | [place] | | | | | | [address] | | | | | | [phone] | | | +--------+ + + + [...]
--- OUTSIDE RECORDS SUMMARY | ~2019-11-01 | XMS | Encounter Summary ---
Demographics + + + | Address | [address] | | | [place] [address] | + + + | Home Phone [...] + + + | Author | [place] [employer] [facility] | + + + | Organization | [facility] [employer] [facility] | + + + | Address | Unknown | + + + | Phone | Unavailable | + + + Support + + +---------+ + | Name | Relationship | Address | Phone | + + +---------+ + | Ruby Au | ECON | Unknown | | + + +---------+ + Care Team Providers + +------+ + | Care Snack Steward Name | Role | Phone | [...] Cerebri | | 2006 | Visit | [place] | | (Primary Dx) | | | | Neuro-Ophthalmology | | | | | | [address] | | | | | | [place] Mailcode: CEI | | | | | | Mailcode: CEI | | | | | | [place], [place] | | | | | | [address] | | | | | | [phone] | | | +--------+---------+ + + + [...] by: CASIMIRO PAYTON MD [address] [place] [address] [facility] chart note taken this morning by . Symptoms: Patient specific problem noted by patient: transient visual loss HPI: 31 y.o. 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 : negative Musculoskeletal: negative [...] Brad Currie MD Neuro-Ophthalmology and Cerebrovascular Disease Mission Assessment Specialist of Ophthalmology, Neurology, and Neurosurgery documented [...]
--- OUTSIDE RECORDS SUMMARY | ~2019-11-01 | XMS | Encounter Summary ---
Demographics + + + | Address | [address] | | | [place] [address] | + + + | Home Phone [...] + + + | Author | [place] [email or web address] [facility] | + + + | Organization | [facility] [employer] [facility] | + [...] Team Providers + +------+ + | Care Mock Up Assembler Name | Role | Phone | [...] | | | | | | | [facility] | | | | | | | Hospital | | | | | | | [place], [place] | | | | | | | [address] | | | | | | | Phone: | | | | | | | [phone] | | | | | | | Fax: | | | | | | | [phone] | +--------+--------+ + + + + Encounter Details +--------+ + + + + | Date | Type | Department | Care Team | Description | +--------+ + + + + | 05/07/ | Hospital | [facility] [address] | [place], | | | 2007 | Encounter | [address] | MD [place] | | | | | 11[address] [facility] | MD Holden,PhD | | | | | [place] | | | | | | [address] | | | | | | [phone] | | | +--------+ + + + [...] Dennis, | | | | | | M.D.Steamer Operator surgeon: . | | | | [...] | | | | | cervical region, [place] and | | | | | | [...] | | | | | | vein with6-Turks [place] Islander Envoy | | | | | | [...] artery. | | | | | | S6Hpbllc Berenstein | | | | | | [...] | | | | | with a 6-[place] Islander Envoy | | | | | | [...]
--- OUTSIDE RECORDS SUMMARY | ~2019-11-01 | XMS | Encounter Summary ---
Demographics + + + | Address | [address] | | | [place] [address] | + + + | Home Phone [...] + + + | Author | [place] [employer] [facility] | + + + | Organization | [facility] [employer] [facility] [...] Team Providers + +------+ + | Care Clean Rice Broker Name | Role | Phone | + +------+ + | Brenden Benavides MD | PCP | | + +------+ + Encounter Details +--------+ + + + + | Date | Type | Department | Care Team | Description | +--------+ + + + + | 02/23/ | Telephone | [facility] | Brad Currie MD | | | 2006 | | [place] | | | | | | Neuro-Ophthalmology | | | | | | [address] | | | | | | [place] Mailcode: CEI | | | | | | Mailcode: CEI | | | | | | [place], [place] | | | | | | [address] | | | | | | [phone] | | | +--------+ + + + [...]
--- OUTSIDE RECORDS SUMMARY | ~2019-11-01 | XMS | Encounter Summary ---
Demographics + + + | Address | [address] | | | [place] [address] | + + + | Home Phone [...] Organization | [facility] [...] Team Providers + +------+ + | Care Hhas Name | Role | Phone | + +------+ + PCP | Unavailable | + +------+ + Encounter Details +--------+ + + + + | Date | Type | Department | Care Team | Description | +--------+ + + + + | 09/30/ | Hospital | [facility] | | | | 1991 | Encounter | MED CTR WOMENS | | | | | | HEALTH [address] | | | | | | [place], | | | | | | [place] [address] | | | | | | [phone] | | | +--------+ + + + [...]
--- OUTSIDE RECORDS SUMMARY | ~2019-11-01 | XMS | Encounter Summary ---
Demographics + + + | Address | [address] | | | [place] [address] | + + + | Home Phone [...] + + + | Author | [place] [employer] [facility] | + + + | Organization | [facility] [employer] [facility] | + [...] Providers + +------+ + | Care Operations Lieutenant Name | Role | Phone | [...] | | | Ave Mailcode: CH8N | [place], [place] | | | | | [facility] | [address] | | | | | and Healing, | [phone] | | | | | [facility] | | | | | | Floor [place], [place] | | | | | | [address] | | | | | | [phone] | | | +--------+ + + + [...]
--- OUTSIDE RECORDS SUMMARY | ~2019-11-01 | XMS | Encounter Summary ---
Demographics + + + | Address | [address] | | | [place] [address] | + + + | Home Phone [...] + + | Author | [place] [employer] [facility] | + + + | Organization | [facility] [...] Team Providers + +------+ + | Care Disk Operator Name | Role | Phone | [...] | | | Ave Mailcode: CH8N | [place], [place] | | | | | [facility] | [address] | | | | | and [place], | [phone] | | | | | [facility] | | | | | | Floor [place], [place] | | | | | | [address] | | | | | | [phone] | | | +--------+ + + + [...]
--- OUTSIDE RECORDS SUMMARY | ~2019-11-01 | XMS | Encounter Summary ---
Demographics + + + | Address | [address] | | | [place] [address] | + + + | Home Phone [...] + + | Author | [place] [employer] [facility] | + + + | Organization | [facility] [employer] [facility] | + [...] Providers + +------+ + | Care Studio Designer Name | Role | Phone | + +------+ + | Brenden Benavides MD | PCP | | + +------+ + Encounter Details +--------+ + + + + | Date | Type | Department | Care Team | Description | +--------+ + + + + | 02/21/ | Telephone | [facility] | [address] | | | 2006 | | [place] | [address] | | | | | Oculoplastics at | [address] [place], [place] | | | | | Maicol Perez [facility] | [address] | | | | | [address] | | | | | | Mailcode: PATTI | | | | | | [place], [place] | | | | | | [address] | | | | | | [phone] | | | +--------+ + + + [...]
--- OUTSIDE RECORDS SUMMARY | ~2019-11-01 | XMS | Encounter Summary ---
Demographics + + + | Address | [address] | | | [place] [address] | + + + | Home Phone [...] + + + | Author | [place] [employer] [facility] | + + + | Organization | [facility] [employer] [facility] | + [...] Team Providers + +------+ + | Care Artificial Breeding Distributor Name | Role | Phone | + [...] | | | Ave Mailcode: CH8N | [place], [place] | | | | | [facility] | [address] | | | | | and [place], | [phone] | | | | | [facility] | | | | | | Floor [place], [place] | | | | | | [address] | | | | | | [phone] | | | +--------+ + + + [...]
--- OUTSIDE RECORDS SUMMARY | ~2019-11-01 | XMS | Encounter Summary ---
Demographics + + + | Address | [address] | | | [place] [address] | + + + | Home Phone [...] + + + | Author | [place] [employer] [facility] | + + + | Organization | [facility] | + [...] Providers + +------+ + | Care Automatic Head Sawyer Name | Role | Phone | [...] Headache | | 2007 | | [facility] | [address] | | | | | Rd Mailcode: PV01 | [place], [place] | | | | | Physician's | [address] | | | | | [place], | [phone] | | | | | [place] [address] | | | | | | [phone] | | | +--------+ + + + [...]
--- OUTSIDE RECORDS SUMMARY | ~2019-11-01 | XMS | Encounter Summary ---
Demographics + + + | Address | [address] | | | [place] [address] | + + + | Home Phone [...] | [facility] | [...] Providers + +------+ + | Care Restaurant Worker Name | Role | Phone | + +------+ + PCP | Unavailable | + +------+ + Encounter Details +--------+ + + + + | Date | Type | Department | Care Team | Description | +--------+ + + + + | 04/24/ | Hospital | [facility] | | | | 1991 | Encounter | MED CTR EMERGENCY | | | | | | CENTER [address] | | | | | | [place] | | | | | | [address] | | | | | | [phone] | | | +--------+ + + + [...]
--- OUTSIDE RECORDS SUMMARY | ~2019-11-01 | XMS | Encounter Summary ---
Demographics + + + | Address | [address] | | | [place] [address] | + + + | Home Phone [...] + | Organization | [facility] | | | [...] Team Providers + +------+ + | Care Grease Maker Head Name | Role | Phone | + +------+ + PCP | Unavailable | + +------+ + Encounter Details +--------+ + + + + | Date | Type | Department | Care Team | Description | +--------+ + + + + | 05/21/ | Hospital | [facility] | | | | 1991 | Encounter | MED [facility] | | | | | | HEALTH [address] | | | | | | [place], | | | | | | [place] [address] | | | | | | [phone] | | | +--------+ + + + [...]
--- OUTSIDE RECORDS SUMMARY | ~2019-11-01 | XMS | Encounter Summary ---
Demographics + + + | Address | [address] | | | [place] [address] | + + + | Home Phone [...] + + + | Author | [place] [email or web address] [facility] | + + + | Organization | [facility] [employer] [facility] [...] Team Providers + +------+ + | Care Flocculator Operator Name | Role | Phone | [...] Cerebri | | 2007 | Visit | [facility] [address] | [address] | (Primary Dx) | | | | Ave Mailcode: CH8N | [place], [place] | | | | | [facility] | [address] | | | | | and Healing, | [phone] | | | | | [facility] | | | | | | Floor [place], [place] | | | | | | [address] | | | | | | [phone] | | | +--------+---------+ + + + [...]
--- OUTSIDE RECORDS SUMMARY | ~2019-11-01 | XMS | Encounter Summary ---
Demographics + + + | Address | [address] | | | [place] [address] | + + + | Home Phone [...] + + + | Author | [place] [employer] [facility] | + + + | Organization | [facility] | + + [...] Providers + +------+ + | Care Business Office Associate Name | Role | Phone | [...] | | 2005 | Visit | [place] | | (Primary Dx) | | | | Neuro-Ophthalmology | | | | | | [address] | | | | | | [address] Mailcode: CEI | | | | | | Mailcode: CEI | | | | | | [place], [place] | | | | | | [address] | | | | | | [phone] | | | +--------+---------+ + + + [...] Brad Currie MD Neuro-Ophthalmology and Cerebrovascular Disease Brick Off Bearer of Ophthalmology, Neurology, and Neurosurgery documented in [...]
--- OUTSIDE RECORDS SUMMARY | ~2019-11-01 | XMS | Encounter Summary ---
Demographics + + + | Address | [address] | | | [place] [address] | + + + | Home Phone [...] | Organization | [facility] | | | [...] Providers + +------+ + | Care Outside Sales Account Executive Name | Role | Phone | + +------+ + PCP | Unavailable | + +------+ + Encounter Details +--------+ + + + + | Date | Type | Department | Care Team | Description | +--------+ + + + + | 07/24/ | Hospital | [facility] | | | | 1990 | Encounter | MED CTR EMERGENCY | | | | | | CENTER [address] | | | | | | [place] | | | | | | [address] | | | | | | [phone] | | | +--------+ + + + [...]
--- OUTSIDE RECORDS SUMMARY | ~2019-11-01 | XMS | Encounter Summary ---
Demographics + + + | Address | [address] | | | [place] [address] | + + + | Home Phone [...] | Organization | [facility] [...] Providers + +------+ + | Care Spring Up Supervisor Name | Role | Phone | + +------+ + PCP | Unavailable | + +------+ + Encounter Details +--------+ + + + + | Date | Type | Department | Care Team | Description | +--------+ + + + + | 07/17/ | Hospital | [facility] | Domingo Darby, | | | 2010 | Encounter | [facility] | [address] | | | | | EMERGENCY CENTER | [place] [address] | | | | | [address] | [phone] | | | | | [place], [place] | | | | | | [address] | | | | | | [phone] | | | +--------+ + + + [...]
--- OUTSIDE RECORDS SUMMARY | ~2019-11-01 | XMS | Encounter Summary ---
Demographics + + + | Address | [address] | | | [place] [address] | + + + | Home Phone [...] + + | Author | [place] [employer] [facility] | + + + | Organization | [facility] [facility] [employer] [facility] | + [...] Providers + +------+ + | Care Kitchen Steward Name | Role | Phone | [...] | | | | | hypertension | [place], [place] | [place], [place] | | | | | Procedures | [address] | [address] | | | | | REQUEST TO | Phone: | Phone: | | | | | SURGERY | [phone] | [phone] | | | | | ELEMENTARY ELL TEACHER | Fax: | Fax: | | | | | [place] [facility] | [phone] | [phone] | | | | | SPINAL | [...] | | | Ave Mailcode: CH8N | [place], [place] | | | | | [facility] | [address] | | | | | and [place], | [phone] | | | | | [facility] | | | | | | Floor [place], [place] | | | | | | [address] | | | | | | [phone] | | | +--------+ + + + [...]
--- OUTSIDE RECORDS SUMMARY | ~2019-11-01 | XMS | Encounter Summary ---
Demographics + + + | Address | [address] | | | [place] [address] | + + + | Home Phone [...] + + + | Author | [place] [employer] [facility] | + + + | Organization | [facility] [employer] [facility] | [...] Team Providers + +------+ + | Care Mmd Unit Teacher Name | Role | Phone | + +------+ + | Brenden Benavides MD | PCP | | + +------+ + Encounter Details +--------+ + + + + | Date | Type | Department | Care Team | Description | +--------+ + + + + | 02/23/ | Telephone | [facility] | Brad Currie MD | | | 2006 | | [place] | | | | | | Neuro-Ophthalmology | | | | | | [address] | | | | | | [place] Mailcode: CEI | | | | | | Mailcode: CEI | | | | | | [place], [place] | | | | | | [address] | | | | | | [phone] | | | +--------+ + + + [...]
--- OUTSIDE RECORDS SUMMARY | ~2019-11-01 | XMS | Encounter Summary ---
Demographics + + + | Address | [address] | | | [place] [address] | + + + | Home Phone [...] + + + | Author | [place] [employer] [facility] | + + + | Organization | [facility] [employer] [facility] | + [...] Refill Request | | 2007 | | [facility] [address] | [place] | | | | | [place] Mailcode: CH8N | Neurosurgery [address] | | | | | [facility] | [address] | | | | | and Healing, | [place], [place] | | | | | Building | [address] | | | | | Floor [place], [place] | | | | | | [address] | | | | | | [phone] | | | +--------+--------+ + + + [...]
--- OUTSIDE RECORDS SUMMARY | ~2019-11-01 | XMS | Encounter Summary ---
Demographics + + + | Address | [address] | | | [place] [address] | + + + | Home Phone [...] | [facility] [...] + +------+ + | Care Market Research Consultant Name | Role | Phone | + +------+ + PCP | Unavailable | + +------+ + Encounter Details +--------+ + + + + | Date | Type | Department | Care Team | Description | +--------+ + + + + | 05/26/ | Hospital | [facility] | Alexa Bower DO | Infection of lumbar | | 2017 - | Encounter | CENTER SURGICAL [address] | [address] | spine (HCC); Type [address] | | | [address] | [place] [address] | diabetes mellitus | | 05/27/ | | [place], [place] | [phone] | without | | 2017 | | [address] | | complication, | | | | [phone] | | unspecified long | | | | | | term insulin use | | | | | | status ([facility]); | | | | | | History of drug | | | | | | abuse; BMI | | | | | | 40.0-44.9, adult | | | | | | ([facility]); Back pain, | | | [...] 154 Date of Service: 05/27/171842 Status: Signed Front End Loader Operator: Reynold Garcia MD (Physician) I was [...] 05/27/171849 Date of Service: 05/27/171842 Status: Signed Front End Loader Operator: Mesha Brown RN (Registered Nurse) Pt [...] Date of Service: 05/27/17 1303 Status: Signed Front End Loader Operator: Mesha Brown RN (Registered Nurse) Went [...] Date of Service: 05/27/17 1045 Status: Signed Front End Loader Operator: Da Goode RN (Registered Nurse) 05/27/17 [...] Oriented Prior functional status independant Power of Knitting Inspector No Anticipated Discharge Plan Post Acute Care Needs None at this time Resources Financial concerns No Transportation issues No ( will transport) Patient/Family concerns No Prescription Plan Yes Name of Pharmacy [facility] phone number [phone] Previous home health equipment No Vascular access device No Ostomy/Drains/Appliances No Anticipated Disposition Facility Type Home Met with patient at bedside. Annabella is a 41 year old female with a history of anxiety/depre sssion, HTN, COPD, DM type 2, and IV drug use. She lives in [place], [place] with her daughter 2 6, and 14 year old twins. Her is currently getting a new house ready for them to mov e into and is active in their lives. Annabella went to [facility] for pelvic pain and spotting but left AMA while waiting for MR I results because she couldn't smoke. The hospital called her and recommended her to go to [facility] based on the MRI results. Patient is independent in all ADL's. Because of the IV drug use, sending her home with an I V line is not recommended is she needs outpatient IV abx. Patient's PCP is: Virginia Reddy DELIVERY NURSE Patient's insurance:[facility] RN DOCUMENTATION SPECIALIST; Prediculous Coverage concerns:no Medication coverage/concerns: no Community resources utilized / needed: TBD Assistance in transportation: not at this time Identification of any specific education / training: TBD Barriers to Discharge / Alternative housing needed: not at this time Anticipated DCP: Home DA GOODE RN Case Management [phone] orenalicja morley, Andre Marmolejo MD - 05/27/2017 9:46 AM PDT Progress Notes by Andre Alonso MD-R1 at 05/27/17 0946 Author: [email or web address] Service: Hospitalist Author Type: Resident-Y1 Filed: 05/27/171900 Date of Service: 05/27/17945 Status: Attested Front End Loader Operator: JIMENA [email or web address] (Resident-Y1) Cosigner: Reynold Garcia [...] to see pt proactively. IVDU; heroin H/o CHIP PERSON shunt. [facility] Service: Hospitalist Progress Note Hospital Day: LOS: 0 days Post-Op Day: * No surgery found * SUBJECTIVE Patient Summary: the patient is a 41-year-old female with significant past medical h istory of type II diabetes, hypertension, gastroesophageal reflux disease, depression, IV dr hawa goldsmith who is a transfer from [facility] for further evaluation. Events Overnight: The [...] IV drug abuse who was transferred from [facility] in [place] for further evaluation of suspicious lumbar [...] 05/27/17635 Date of Service: 05/27/17633 Status: Signed Front End Loader Operator: Cathy Garcia RN (Registered Nurse) Contacted [facility]. Will fax over current microbiology GC test along with most current wound culture results. onver ludwin Transaction, Provider Unknown - 05/27/2017 5:15 AM PDT Progress Notes by Remy Trinidad RPH at 05/27/17514 Author: Remy Trinidad RPH Service: Pharmacy Author Type: Pharmacist Filed: 05/27/17514 Date of Service: 05/27/17514 Status: Signed Front End Loader Operator: Remy Trinidad RPH (Pharmacist) Note ccl [...] NEGATIVE Testing | | | performed at [facility];[address] [place] [address];[place] [address] | | + + + + +---------+ [...] | | | Fingerstick | performed at [facility];[address] | | LAB | | | | [address];[place] | | | | | | [address] | | | | + + + [...] | | | Fingerstick | performed at [facility];[address] | | LAB | | | | [address];[place], [place] | | | | | | [address] | | | | + + + [...] - 1.030 | EXTERNAL | | | [place] | | | LAB | | + [...] | | l squamous | performed at [facility], [address] | | LAB | | | epithelia, | Teresa [address], | | | | | UA | [place] [address] | | | | + + + [...] | | | Patient | performed at [facility] | | LAB | | | | [address]da Hammer;[place], [place] | | | | | | [address] | | | | + + + [...] | | | | | performed at [facility];[address] | | | | | | [address];[place], [place] | | | | | | [address] | | | | + + + [...] | | | Basophils | performed at [facility], [address] | K/uL | LAB | | | | Teresa Hammer, | | | | | | [place] [address] | | | | + + + [...] EXTERNAL | | | | performed at [facility], [address] | | LAB | | | | Teresa Hammer, | | | | | | [place] [address] | | | | + + + [...] | | | | | [place] [address] | | | | + + + [...] | Hemoglobin | 5.7Comment: [place] | 4.0 - 6.0 % | EXTERNAL [...] | | | | | performed at [facility], [address] | | | | | | [facility], | | | | | | [place] [address] | | | | + + + [...] Clark, | | | | | | [place] [address] | | | | + + + [...] | | | Fingerstick | performed at [facility];[address] | | LAB | | | | [address] Hammer;[place] | | | | | | [address] | | | | + + + [...] | | | | | performed at [facility];[address] | | | | | | [address];[place], [place] | | | | | | [address] | | | | + + + [...] EXTERNAL | | | | performed at [facility];888 | mmol/L | LAB | | | | Nereyda Clark;[place], [place] | | | | | | [address] | | | | + + + [...] at | | | | | | [facility];[address] [place] [address] | | | | | | Blvd;[place] [address] | | | | + + + [...] EXTERNAL | | | | performed at [facility];[address] | | LAB | | | | [address]da Clark;[place], [place] | | | | | | [address] | | | | + + + [...] EXTERNAL | | | | performed at [facility] | | LAB | | | | Nereyda Hammer;[place], [place] | | | | | | [address] | | | | + + + [...] | | | QUALITATIVE | performed at [facility] | | LAB | | | | Dawn [facility];[place], [place] | | | | | | [address] | | | | + + + [...] - 1.030 | EXTERNAL | | | [place] | | | LAB | | + [...] | | | Cells | performed at [facility];[address] | | LAB | | | | [address] Hammer;[place], [place] | | | | | | [address] | | | | + + + [...] Type 2 diabetes mellitus without complication, unspecified extermination inspector insulin use | | status | + [...]
--- OUTSIDE RECORDS SUMMARY | ~2019-11-01 | XMS | Encounter Summary ---
Demographics + + + | Address | [address] | | | [place] [address] | + + + | Home Phone [...] + + | Author | [place] [employer] [facility] | + + + | Organization | [facility] [employer] [facility] [...] Team Providers + +------+ + | Care Combination Operator Name | Role | Phone | [...] | | | Ave Mailcode: CH8N | [place], [place] | | | | | [facility] | [address] | | | | | and Healing, | [phone] | | | | | [facility] | | | | | | Floor [place], [place] | | | | | | [address] | | | | | | [phone] | | | +--------+ + + + [...]
--- OUTSIDE RECORDS SUMMARY | ~2019-11-01 | XMS | Encounter Summary ---
Demographics + + + | Address | [address] | | | [place] [address] | + + + | Home Phone [...] | [facility] [...] Providers + +------+ + | Care Wool Hat Hydraulicker Name | Role | Phone | + +------+ + PCP | Unavailable | + +------+ + Encounter Details +--------+ + + + + | Date | Type | Department | Care Team | Description | +--------+ + + + + | 05/18/ | Hospital | [facility] | | | | 1991 | Encounter | MED CTR WOMENS | | | | | | HEALTH SV [address] | | | | | | [place], | | | | | | [place] [address] | | | | | | [phone] | | | +--------+ + + + [...]
--- OUTSIDE RECORDS SUMMARY | ~2019-11-01 | XMS | Encounter Summary ---
Demographics + + + | Address | [address] | | | [place] [address] | + + + | Home Phone [...] + + + | Author | [place] [employer] [facility] | + + + | Organization | [facility] [employer] [facility] [...] Team Providers + +------+ + | Care Breaker Hand Name | Role | Phone | [...] | | [facility] [address] | [place] | | | | | [place] Mailcode: CH8N | Neurosurgery [address] | | | | | [facility] | [address] | | | | | and Healing, | [place], [place] | | | | | [place] [address] | [address] | | | | | Floor [place], [place] | | | | | | [address] | | | | | | [phone] | | | +--------+ + + + [...]
--- OUTSIDE RECORDS SUMMARY | ~2019-11-01 | XMS | Encounter Summary ---
Demographics + + + | Address | [address] | | | [place] [address] | + + + | Home Phone [...] + + + | Author | [place] [employer] [facility] | + + + | Organization | [facility] [...] Team Providers + +------+ + | Care Memorial Adviser Name | Role | Phone | [...] [place], [place] | | | | | [facility] | [address] | | | | | and Healing, | [phone] | | | | | [facility] | | | | | | Floor [place], [place] | | | | | | [address] | | | | | | [phone] | | | +--------+ + + + [...]
--- OUTSIDE RECORDS SUMMARY | ~2019-11-01 | XMS | Encounter Summary ---
Demographics + + + | Address | [address] | | | [place] [address] | + + + | Home Phone [...] + | Organization | [facility] | | [...] Team Providers + +------+ + | Care Count Room Clerk Name | Role | Phone | + +------+ + PCP | Unavailable | + +------+ + Encounter Details +--------+ + + + + | Date | Type | Department | Care Team | Description | +--------+ + + + + | 04/24/ | Hospital | [facility] | | | | 2004 | Encounter | MED CTR EMERGENCY | | | | | | CENTER [address] | | | | | | [place] | | | | | | [address] | | | | | | [phone] | | | +--------+ + + + [...]
--- OUTSIDE RECORDS SUMMARY | ~2019-11-01 | XMS | Encounter Summary ---
Demographics + + + | Address | [address] | | | [place] [address] | + + + | Home Phone [...] + + + | Author | [place] [employer] [facility] | + + + | Organization | [facility] [employer] [facility] | + [...] Team Providers + +------+ + | Care Mycology Teacher Name | Role | Phone | [...] Refill Request | | 2007 | | [facility] [address] | [place] | | | | | [place] Mailcode: CH8N | Neurosurgery [address] | | | | | [facility] | [address] | | | | | and Healing, | [place], [place] | | | | | Building | [address] | | | | | Floor [place], [place] | | | | | | [address] | | | | | | [phone] | | | +--------+--------+ + + + [...]
--- OUTSIDE RECORDS SUMMARY | ~2019-11-01 | XMS | Encounter Summary ---
Demographics + + + | Address | [address] | | | [place] [address] | + + + | Home Phone [...] | Organization | [facility] | [...] Providers + +------+ + | Care Security System Installer Name | Role | Phone | + +------+ + PCP | Unavailable | + +------+ + Encounter Details +--------+ + + + + | Date | Type | Department | Care Team | Description | +--------+ + + + + | 11/04/ | Hospital | [facility] | Unknown, | | | 2004 | Encounter | MED CTR XRAY [address] | MD [address] | | | | | [place] | | | | | | [place] [address] | (Fax) | | | | | [phone] | | | +--------+ + + + [...]
--- OUTSIDE RECORDS SUMMARY | ~2019-11-01 | XMS | Encounter Summary ---
Demographics + + + | Address | [address] | | | [place] [address] | + + + | Home Phone [...] + + + | Author | [place] [employer] [facility] | + + + | Organization | [facility] Modern Feed [facility] | + [...] Providers + +------+ + | Care Museum Security Chief Name | Role | Phone | [...] | | | Ave Mailcode: CH8N | [place], [place] | | | | | [facility] | [address] | | | | | and Healing, | [phone] | | | | | [facility] | | | | | | Floor [place], [place] | | | | | | [address] | | | | | | [phone] | | | +--------+ + + + [...]
--- OUTSIDE RECORDS SUMMARY | ~2019-11-01 | XMS | Encounter Summary ---
Demographics + + + | Address | [address] | | | [place] [address] | + + + | Home Phone [...] + + + | Author | [place] [employer] [facility] | + + + | Organization | [facility] Vigoda [facility] | + + [...] Providers + +------+ + | Care Supervisor Unloading Name | Role | Phone | + [...] | | [address] Mailcode:OP14B | [place], | | | | | [facility] | [place] [address] | | | | | [place], [place] | | | | | | [address] | | | | | | [phone] | | | +--------+ + + + [...]
--- OUTSIDE RECORDS SUMMARY | ~2019-11-01 | XMS | Encounter Summary ---
Demographics + + + | Address | [address] | | | [place] [address] | + + + | Home Phone [...] | [facility] | [...] Providers + +------+ + | Care National Insurance Officer Name | Role | Phone | + +------+ + PCP | Unavailable | + +------+ + Encounter Details +--------+ + + + + | Date | Type | Department | Care Team | Description | +--------+ + + + + | 08/03/ | Hospital | [facility] | | | | 1990 | Encounter | MED CTR EMERGENCY | | | | | | CENTER [address] | | | | | | [place] | | | | | | [address] | | | | | | [phone] | | | +--------+ + + + [...]
--- OUTSIDE RECORDS SUMMARY | ~2019-11-01 | XMS | Encounter Summary ---
Demographics + + + | Address | [address] | | | [place] [address] | + + + | Home Phone [...] + + | Author | [place] [employer] [facility] | + + + | Organization | Count Includes [facility] [employer] Science [facility] [...] Team Providers + +------+ + | Care Cake Tester Name | Role | Phone | [...] | | | [address] Mailcode: [id number] | [place], [place] | | | | | [place], [place] | [address] | | | | | [address] | [phone] | | | | | [phone] | | | +--------+ + + + [...]
--- OUTSIDE RECORDS SUMMARY | ~2019-11-01 | XMS | Encounter Summary ---
Demographics + + + | Address | [address] | | | [place] [address] | + + + | Home Phone [...] + + + | Author | [place] [employer] [facility] | + + + | Organization | [facility] | + + + | Address | Unknown | + + + | Phone | Unavailable | + + + Support + + +---------+ + | Name | Relationship | Address | Phone | + + +---------+ + | Ruby Au | ECON | Unknown | | + + +---------+ + Care Team Providers + +------+ + | Care Recycling Or Rubbish Collector Name | Role | Phone | [...] [place] | | | | | | [facility] | | | | | | | | | | | | [address] | | | | | | [phone] | | | +--------+ + + + [...]
--- OUTSIDE RECORDS SUMMARY | ~2019-11-01 | XMS | Encounter Summary ---
Demographics + + + | Address | [address] | | | [place] [address] | + + + | Home Phone [...] + + + | Author | [place] [employer] [facility] | + + + | Organization | [facility] [employer]Arch[employer] [facility] [...] Cerebri | | 2006 | Visit | [place] | | (Primary Dx) | | | | Neuro-Ophthalmology | | | | | | [address] | | | | | | [place] Mailcode: CEI | | | | | | Mailcode: CEI | | | | | | [place], [place] | | | | | | [address] | | | | | | [phone] | | | +--------+---------+ + + + [...] Referred by: CASIMIRO PAYTON MD [address] [place] [address] Symptoms: She has not been taking her [...] Brad Currie MD Neuro-Ophthalmology and Cerebrovascular Disease Product Engineer of Ophthalmology, Neurology, and Neurosurgery documented [...]
--- OUTSIDE RECORDS SUMMARY | ~2019-11-01 | XMS | Encounter Summary ---
Demographics + + + | Address | [address] | | | [place] [address] | + + + | Home Phone [...] + + + | Author | [place] [employer]pt[employer] [facility] | + + + | Organization | [facility] Clinical Insight [facility] [...] Providers + +------+ + | Care Utility Locate Technician Name | Role | Phone | [...] Cerebri | | 2007 | Visit | [facility] [address] | [place] | (Primary Dx) | | | | Ave Mailcode: CH8N | Neurosurgery [address] | | | | | [facility] | [address] | | | | | and Healing, | [place], [place] | | | | | Building | [address] | | | | | Floor [place], [place] | | | | | | [address] | | | | | | [phone] | | | +--------+---------+ + + + [...]
--- OUTSIDE RECORDS SUMMARY | ~2019-11-01 | XMS | Encounter Summary ---
Demographics + + + | Address | [address] | | | [place] [address] | + + + | Home Phone [...] + + + | Author | [place] [employer] [facility] | + + + | Organization | [facility] Se[employer] Ad[employer] [facility] [...] Providers + +------+ + | Care Special Events Driver Name | Role | Phone | [...] | | Ophthalmology | | Non-[facility] | [place], | | | | | | Epic Dept | Graciela Guardado MD | | | | | | | [address] | | | | | | | [address] | | | | | | | [place], [place] | | | | | | | [address] | | | | | | | Phone: | | | | | | | [phone] | | | | | | | Fax: | | | | | | | [phone] | +--------+--------+ + + + + Encounter Details +--------+---------+ + + + | Date | Type | Department | Care Team | Description | +--------+---------+ + + + | 03/26/ | Office | [facility] | Mo Hood | Pseudotumor cerebri | | 2012 | Visit | [place]/Ophthalmol | MD Perry | (Primary Dx); | | | | ogy at [facility] [address] | | Depression; Type II | | | | [address] [place] Mailcode: | | or unspecified type | | | | [address] for | | diabetes mellitus | | | | Health and Healing, | | without mention of | | | | Building | | complication, not | | | | Floor [place], [place] | | stated as | | | | [address] | | uncontrolled; PTSD | | | | [phone] | | (post-traumatic | | | | [...] HPI: 37 y.o. year old female from FRIEND : Patient presents with: IIH - Idiopathic [...] because they live 4 hours away in [facility]. Tobacco use: reports that she has [...] Right Left Disc 1+ Optic disc edema, +WIDE AREA NETWORK ADMINISTRATOR 2+ Optic disc edema, RNFL whitening at the superonasal borde r of the disc. There is spontaneous pulsing of the entire disc head with heart beat. C/D Ratio 0.1 0.1 Macula Normal Normal Vessels Engorged. tortuous Engorged. tortuous Periphery Normal Normal Neuro/Psych Oriented x3: Yes Mood/Affect: Normal See [facility] Ophthalmology Exam Module for additional exam [...] sheath fenestra tion (by Dr. Hughes at [facility] in 2006) and s/p multiple [...] Dr. Lux. Mo Hood MD Resident Physician [facility], PGY-2 [facility] Physician: Mo Hood MD, 03/26/2013 [...]
--- OUTSIDE RECORDS SUMMARY | ~2019-11-01 | XMS | Encounter Summary ---
Demographics + + + | Address | [address] | | | [place] [address] | + + + | Home Phone [...] [facility] | [...] Team Providers + +------+ + | Care Geothermal Plant Manager Name | Role | Phone | + +------+ + PCP | Unavailable | + +------+ + Encounter Details +--------+ + + + + | Date | Type | Department | Care Team | Description | +--------+ + + + + | 07/21/ | Hospital | [facility] | | | | 1990 | Encounter | MED CTR EMERGENCY | | | | | | CENTER [address] | | | | | | [place] | | | | | | [address] | | | | | | [phone] | | | +--------+ + + + [...]
--- OUTSIDE RECORDS SUMMARY | ~2019-11-01 | XMS | Encounter Summary ---
Demographics + + + | Address | [address] | | | [place] [address] | + + + | Home Phone [...] Organization | [facility] | | [...] Providers + +------+ + | Care Quill Buncher And Sorter Name | Role | Phone | + +------+ + PCP | Unavailable | + +------+ + Encounter Details +--------+ + + + + | Date | Type | Department | Care Team | Description | +--------+ + + + + | 09/30/ | Hospital | [facility] | | | | 1990 | Encounter | MED CTR EMERGENCY | | | | | | CENTER [address] | | | | | | [place] | | | | | | [address] | | | | | | [phone] | | | +--------+ + + + [...]
--- OUTSIDE RECORDS SUMMARY | ~2019-11-01 | XMS | Encounter Summary ---
Demographics + + + | Address | [address] | | | [place] [address] | + + + | Home Phone [...] + + | Author | [place] [employer] [facility] | + + + | Organization | [facility] Cell Guidance Systems [facility] | + + + | Address | Unknown | + + + | Phone | Unavailable | + + + Support + + +---------+ + | Name | Relationship | Address | Phone | + + +---------+ + | Ruby Au | ECON | Unknown | | + + +---------+ + Care Team Providers + +------+ + | Care Numerical Control Machine Operator Name | Role | Phone [...] MD | | | 2010 | | [place]/Ophthalmol | [address] | | | | | leon at [facility] [address] | [place], [place] | | | | | [address] Mailcode: | [address] | | | | | CH11P [facility] | [phone] | | | | | Health and Healing, | | | | | | [facility] | | | | | | [place], [place] | | | | | | [address] | | | | | | [phone] | | | +--------+ + + + [...]
--- OUTSIDE RECORDS SUMMARY | ~2019-11-01 | XMS | Encounter Summary ---
Demographics + + + | Address | [address] | | | [place] [address] | + + + | Home Phone [...] + + + | Author | [place] [employer]io [facility] | + + + | Organization | [facility] [facility] | + + + | Address | Unknown | + + + | Phone | Unavailable | + + + Support + + +---------+ + | Name | Relationship | Address | Phone | + + +---------+ + | Ruby Au | ECON | Unknown | | + + +---------+ + Care Team Providers + +------+ + | Care Necktie Centralizing Machine Operator Name | Role | Phone [...] | Headache | | 2014 | | [place] | [address] | | | | | Neuro-Ophthalmology | [facility] [place] | | | | | at [facility] [address] | [address] | | | | | Ave Mailcode: [facility] | [phone] | | | | | [facility] | | | | | | and Healing, | | | | | | Building | | | | | | Floor [place], [place] | | | | | | [address] | | | | | | [phone] | | | +--------+ + + + [...]
--- OUTSIDE RECORDS SUMMARY | ~2019-11-01 | XMS | Encounter Summary ---
Demographics + + + | Address | [address] | | | [place] [address] | + + + | Home Phone [...] + + + | Author | [place] [employer] [facility] | + + + | Organization | [facility] | + + + | Address | Unknown | + + + | Phone | Unavailable | + + + Support + + +---------+ + | Name | Relationship | Address | Phone | + + +---------+ + | Ruby Au | ECON | Unknown | | + + +---------+ + Care Team Providers + +------+ + | Care Cellophaner Name | Role | Phone | + +------+ + | Dennis Maddox | PCP | | + +------+ + Encounter Details +--------+ + + + + | Date | Type | Department | Care Team | Description | +--------+ + + + + | 02/28/ | Emergency | [facility] Emergency | | | | 2013 - | | Department [address] | | | | | [address] | | | | 03/01/ | | [facility] | | | | 2013 | | [place], [place] | | | | | | [address] | | | | | | [phone] | | | +--------+ + + + [...]
--- OUTSIDE RECORDS SUMMARY | ~2019-11-01 | XMS | Encounter Summary ---
Demographics + + + | Address | [address] | | | [place] [address] | + + + | Home Phone [...] Collaborative & [facility] | | [...] Team Providers + +------+ + | Care Turntable Man Name | Role | Phone | + +------+ + PCP | Unavailable | + +------+ + Encounter Details +--------+ + + + + | Date | Type | Department | Care Team | Description | +--------+ + + + + | 08/16/ | Hospital | [facility] | | | | 1990 | Encounter | MED CTR EMERGENCY | | | | | | CENTER [address] | | | | | | [place] | | | | | | [address] | | | | | | [phone] | | | +--------+ + + + [...]
--- OUTSIDE RECORDS SUMMARY | ~2019-11-01 | XMS | Encounter Summary ---
Demographics + + + | Address | [address] | | | [place] [address] | + + + | Home Phone [...] | Organization | [facility] | [...] + + | 01/15/ | Hospital | [facility] | [address] | | | 2011 | Encounter | MED CTR EMERGENCY | DO Gaurang Drake | | | | | [address] | [place], [place] | | | | | [place], [place] | [address] | | | | | [address] | | | | | | [phone] | | | +--------+ + + + [...]
--- OUTSIDE RECORDS SUMMARY | ~2019-11-01 | XMS | Encounter Summary ---
Demographics + + + | Address | [address] | | | [place] [address] | + + + | Home Phone [...] + + + | Author | [place] [employer] [facility] | + + + | Organization | [facility] [employer] [facility] | + + [...] Providers + +------+ + | Care Blood Or Blood Bank Technician Name | Role | Phone | [...] | | | Ave Mailcode: CH8N | [place], [place] | | | | | [facility] | [address] | | | | | and [place], | [phone] | | | | | [facility] | | | | | | Floor [place], [place] | | | | | | [address] | | | | | | [phone] | | | +--------+ + + + [...]
--- OUTSIDE RECORDS SUMMARY | ~2019-11-01 | XMS | Encounter Summary ---
Demographics + + + | Address | [address] | | | [place] [address] | + + + | Home Phone [...] Organization | [facility] | [...] Providers + +------+ + | Care Forensic Document Examiner Name | Role | Phone | + +------+ + PCP | Unavailable | + +------+ + Encounter Details +--------+ + + + + | Date | Type | Department | Care Team | Description | +--------+ + + + + | 05/21/ | Hospital | [facility] | | | | 1991 | Encounter | MED CTR WOMENS | | | | | | HEALTH [address] | | | | | | [place], | | | | | | [place] [address] | | | | | | [phone] | | | +--------+ + + + [...]
--- OUTSIDE RECORDS SUMMARY | ~2019-11-01 | XMS | Encounter Summary ---
Demographics + + + | Address | [address] | | | [place] [address] | + + + | Home Phone [...] | Organization | [facility] [...] Providers + +------+ + | Care Merchandising Coordinator Name | Role | Phone | [...] | | | | | | [place] [address] | | | | | | [phone] | | | +--------+ + + + [...]
--- OUTSIDE RECORDS SUMMARY | ~2019-11-01 | XMS | Encounter Summary ---
Demographics + + + | Address | [address] | | | [place] [address] | + + + | Home Phone [...] | Organization | [facility] | | | and [place] | + + + | Address | Unknown | + + + | Phone | Unavailable | + + + Support + + +---------+ + | Name | Relationship | Address | Phone | + + +---------+ + | Sada Chamorro | ECON | Unknown | | + + +---------+ + Care Team Providers + +------+ + | Care Delivery Crew Member Name | Role | Phone | + +------+ + PCP | Unavailable | + +------+ + Encounter Details +--------+ + + + + | Date | Type | Department | Care Team | Description | +--------+ + + + + | 07/30/ | Hospital | [facility] | | | | 2008 - | Encounter | MED CTR MED ONC | | | | | | [address] | | | | 08/02/ | | [place] [address] | | | | 2008 | | [phone] | | | +--------+ + + + [...]
--- OUTSIDE RECORDS SUMMARY | ~2019-11-01 | XMS | Encounter Summary ---
Demographics + + + | Address | [address] | | | [place] [address] | + + + | Home Phone [...] + + + | Author | [place] [employer] [facility] | + + + | Organization | [facility] [employer] [facility] [...] Providers + +------+ + | Care Senior Fund Accountant Name | Role | Phone | + [...] | | | Ave Mailcode: CH8N | [place], [place] | | | | | [facility] | [address] | | | | | and Healing, | [phone] | | | | | [facility] | | | | | | Floor [place], [place] | | | | | | [address] | | | | | | [phone] | | | +--------+ + + + [...]
--- OUTSIDE RECORDS SUMMARY | ~2019-11-01 | XMS | Encounter Summary ---
Demographics + + + | Address | [address] | | | [place] [address] | + + + | Home Phone [...] + + + | Author | [place] [employer] [facility] | + + + | Organization | [facility] Mobile Share[employer] [facility] | + [...] Team Providers + +------+ + | Care Moid [employer] Teacher Name | Role | Phone | [...] Request (Pt | | 2006 | | [place] | [address] | requests more pain | | | | Oculoplastics at | [place], [place] | medication) | | | | [facility] | [address] | | | | | [address] | [phone] | | | | | Mailcode: PATTI | | | | | | [place], [place] | | | | | | [address] | | | | | | [phone] | | | +--------+--------+ + + + [...]
--- OUTSIDE RECORDS SUMMARY | ~2019-11-01 | XMS | Encounter Summary ---
Demographics + + + | Address | [address] | | | [place] [address] | + + + | Home Phone [...] + + + | Author | [place] [employer] [facility] | + + + | Organization | [facility] [facility] | + [...] Providers + +------+ + | Care Tub Attendant Name | Role | Phone | [...] | | | | | | | [facility] | | | | | | | Hospital | | | | | | | [place], [place] | | | | | | | [address] | | | | | | | Phone: | | | | | | | [phone] | | | | | | | Fax: | | | | | | | [phone] | +--------+--------+ + + + + Encounter Details +--------+ + + + + | Date | Type | Department | Care Team | Description | +--------+ + + + + | 05/07/ | Hospital | [facility] [address] | [place], | | | 2007 | Encounter | [address] | MD [place] | | | | | 11B [facility] | MD Holden,PhD | | | | | [place] | | | | | | [address] | | | | | | [phone] | | | +--------+ + + + [...] Starclose.Impression:Num | | | | | | sahley one: Hypoplastic | | | | | [...] Dennis, | | | | | | M.D.Rotary Dump Operator surgeon: . | | | | [...] | | | | | cervical region, NAMIBIAN and | | | | | | [...] artery. | | | | | | D0Etglem Berenstein | | | | | | [...]
--- OUTSIDE RECORDS SUMMARY | ~2019-11-01 | XMS | Encounter Summary ---
Demographics + + + | Address | [address] | | | [place] [address] | + + + | Home Phone [...] | Organization | [facility] | | [...] Providers + +------+ + | Care Personal Insurance Advisor Name | Role | Phone | + +------+ + PCP | Unavailable | + +------+ + Encounter Details +--------+ + + + + | Date | Type | Department | Care Team | Description | +--------+ + + + + | 01/15/ | Hospital | [facility] | [address] | | | 2011 | Encounter | MED CTR EMERGENCY | DO Gaurang Drake | | | | | [address] | [place], [place] | | | | | [place], [place] | [address] | | | | | [address] | | | | | | [phone] | | | +--------+ + + + [...]
--- OUTSIDE RECORDS SUMMARY | ~2019-11-01 | XMS | Encounter Summary ---
Demographics + + + | Address | [address] | | | [place] [address] | + + + | Home Phone [...] + + | Author | [place] [employer] [facility] | + + + | Organization | Counts Include [address] [facility] [employer] [facility] [...] Providers + +------+ + | Care Guide Winder Name | Role | Phone | + +------+ + PCP | Unavailable | + +------+ + Encounter Details +--------+ + + + + | Date | Type | Department | Care Team | Description | +--------+ + + + + | 06/25/ | Telephone | Neurosurgery at | Steph Reyes MD | | | 2010 | | [facility] [address] | | | | | | [address] Mailcode: CH8N | | | | | | [facility] | | | | | | and Healing, | | | | | | Building [address], | | | | | | Floor [place], [place] | | | | | | [address] | | | | | | [phone] | | | +--------+ + + + [...]
--- OUTSIDE RECORDS SUMMARY | ~2019-11-01 | XMS | Encounter Summary ---
Demographics + + + | Address | [address] | | | [place] [address] | + + + | Home Phone [...] + + | Author | [place] [employer] [facility] | + + + | Organization | [facility] [employer] [facility] [...] Providers + +------+ + | Care Plastic Die Maker Apprentice Name | Role | Phone | [...] | | | Ave Mailcode: CH8N | [place], [place] | | | | | [facility] | [address] | | | | | and Healing, | [phone] | | | | | [facility] | | | | | | Floor [place], [place] | | | | | | [address] | | | | | | [phone] | | | +--------+ + + + [...]
--- OUTSIDE RECORDS SUMMARY | ~2019-11-01 | XMS | Encounter Summary ---
Demographics + + + | Address | [address] | | | [place] [address] | + + + | Home Phone [...] + + | Author | [place] [employer] [facility] | + + + | Organization | [facility] [employer] [facility] | + [...] Team Providers + +------+ + | Care Densitometrist Name | Role | Phone | + [...] | | | Ave Mailcode: CH8N | [place], [place] | Encounters | | | | [facility] | [address] | | | | | and [place], | [phone] | | | | | [facility] | | | | | | Floor [place], [place] | | | | | | [address] | | | | | | [phone] | | | +--------+ + + + [...]
--- OUTSIDE RECORDS SUMMARY | ~2019-11-01 | XMS | Encounter Summary ---
Demographics + + + | Address | [address] | | | [place] [address] | + + + | Home [...] + | Organization | [facility] [...] Providers + +------+ + | Care Regional Sales Engineer Name | Role | Phone | + +------+ + PCP | Unavailable | + +------+ + Encounter Details +--------+ + + + + | Date | Type | Department | Care Team | Description | +--------+ + + + + | 08/03/ | Hospital | [facility] | | | | 1990 | Encounter | MED CTR EMERGENCY | | | | | | CENTER [address] | | | | | | [place] | | | | | | [address] | | | | | | [phone] | | | +--------+ + + + [...]
--- OUTSIDE RECORDS SUMMARY | ~2019-11-01 | XMS | Encounter Summary ---
Demographics + + + | Address | [address] | | | [place] [address] | + + + | Home Phone [...] | Organization | [facility] [...] Team Providers + +------+ + | Care Channel Rougher Name | Role | Phone | + +------+ + PCP | Unavailable | + +------+ + Encounter Details +--------+ + + + + | Date | Type | Department | Care Team | Description | +--------+ + + + + | 03/29/ | Hospital | [facility] | | | | 2006 | Encounter | MED CTR XRAY [address] | | | | | | [address] | | | | | | [place] [address] | | | | | | [phone] | | | +--------+ + + + [...]
--- OUTSIDE RECORDS SUMMARY | ~2019-11-01 | XMS | Encounter Summary ---
Demographics + + + | Address | [address] | | | [place] [address] | + + + | Home Phone [...] | Organization | [facility] | | [...] Providers + +------+ + | Care Air Traffic Controller Name | Role | Phone | + +------+ + PCP | Unavailable | + +------+ + Encounter Details +--------+ + + + + | Date | Type | Department | Care Team | Description | +--------+ + + + + | 10/21/ | Hospital | [facility] | | | | 1991 | Encounter | MED CTR WOMENS | | | | | | HEALTH [address] | | | | | | [place], | | | | | | [place] [address] | | | | | | [phone] | | | +--------+ + + + [...]
--- OUTSIDE RECORDS SUMMARY | ~2019-11-01 | XMS | Encounter Summary ---
Demographics + + + | Address | [address] | | | [place] [address] | + + + | Home Phone [...] + + + | Author | [place] [employer] [facility] | + + + | Organization | [facility] [place] [employer] [facility] | + + + | Address | Unknown | + + + | Phone | Unavailable | + + + Support + + +---------+ + | Name | Relationship | Address | Phone | + + +---------+ + | Ruby Au | ECON | Unknown | | + + +---------+ + Care Team Providers + +------+ + | Care Needle Punch Operator Name | Role | Phone | [...] Cerebri; | | 2006 | Visit | [place]/Ophthalmol | | [place] | | | | ogy at [facility] [address] | | Associated with | | | | [address] Mailcode: | | Increased | | | | CH11P [facility] for | | Intracranial | | | | Health and Healing, | | Pressure; Transient | | | | Building | | Visual Loss | | | | Floor [place], [place] | | | | | | [address] | | | | | | [phone] | | | +--------+---------+ + + + [...] HPI: 31 y.o. year old female from [place] : Patient presents with: Transient visual loss [...] seconds; these occur 2-3 x per w tonto apache. Hobbies: Tobacco use: reports that she has [...] patient to continue follow-[facility] neuro[facility]. Follow up at [facility] prn new symptoms or complaints. WADE [...]
--- OUTSIDE RECORDS SUMMARY | ~2019-11-01 | XMS | Encounter Summary ---
Demographics + + + | Address | [address] | | | [place] [address] | + + + | Home Phone [...] + + + | Author | [place] [employer] [facility] | + + + | Organization | [facility] [employer] [facility] | + [...] Providers + +------+ + | Care Carpenter Cradle And Dolly Name | Role | Phone | + [...] Telephone follow-up | | 2015 | | [place] | [address] | | | | | Neuro-Ophthalmology | [place], [place] | | | | | at [facility] [address] | [address] | | | | | Ave Mailcode: [facility] | [phone] | | | | | [facility] | | | | | | and [place], | | | | | | | | | | | | Floor [place], [place] | | | | | | [address] | | | | | | [phone] | | | +--------+ + + + [...]
--- OUTSIDE RECORDS SUMMARY | ~2019-11-01 | XMS | Encounter Summary ---
[...] + + + | Author | [place] [employer] [facility] | + + + | Organization | [facility] [employer] [facility] | + + + | Address | Unknown | + + + | Phone | Unavailable | + + + Support + + +---------+ + | Name | Relationship | Address | Phone | + + +---------+ + | Ruby Au | ECON | Unknown | | + + +---------+ + Care Team Providers + +------+ + | Care Aquaculture Farmer Name | Role | Phone | [...] Other | | 2005 | | [address] [facility] | [address] | | | | | [address] Mailcode:OP14B | [place], [place] | | | | | [facility] | [address] | | | | | [place], [place] | | | | | | [address] | | | | | | [phone] | | | +--------+ + + + [...]
--- OUTSIDE RECORDS SUMMARY | ~2019-11-01 | XMS | Encounter Summary ---
Demographics + + + | Address | [address] | | | [place] [address] | + + + | Home Phone [...] + + | Author | [place] [employer] [facility] | + + + | Organization | [facility] | + + + | Address | Unknown | + + + | Phone | Unavailable | + + + Support + + +---------+ + | Name | Relationship | Address | Phone | + + +---------+ + | Ruby Au | ECON | Unknown | | + + +---------+ + Care Team Providers + +------+ + | Care Country Printer Name | Role | Phone | [...] | | | Ave Mailcode: CH8N | [place], [place] | | | | | [facility] | [address] | | | | | and Healing, | [phone] | | | | | [facility] | | | | | | Floor [place], [place] | | | | | | [address] | | | | | | [phone] | | | +--------+ + + + [...]
--- OUTSIDE RECORDS SUMMARY | ~2019-11-01 | XMS | Encounter Summary ---
Demographics + + + | Address | [address] | | | [place] [address] | + + + | Home Phone [...] Team Providers + +------+ + | Care Sodder Name | Role | Phone | + +------+ + PCP | Unavailable | + +------+ + Encounter Details +--------+ + + + + | Date | Type | Department | Care Team | Description | +--------+ + + + + | 07/21/ | Hospital | [facility] | | | | 1990 | Encounter | MED CTR EMERGENCY | | | | | | CENTER [address] | | | | | | [place] | | | | | | [address] | | | | | | [phone] | | | +--------+ + + + [...]
--- OUTSIDE RECORDS SUMMARY | ~2019-11-01 | XMS | Encounter Summary ---
Demographics + + + | Address | [address] | | | [place] [address] | + + + | Home Phone [...] | Organization | [facility] [...] Providers + +------+ + | Care Electrical Sign Wirer Helper Name | Role | Phone [...] [place] | | | | | | [address] | | | | | | [phone] | | | +--------+ + + + [...]
--- OUTSIDE RECORDS SUMMARY | ~2019-11-01 | XMS | Encounter Summary ---
Demographics + + + | Address | [address] | | | [place] [address] | + + + | Home Phone [...] + + + | Author | [place] [employer] [facility] | + + + | Organization | [facility] | + [...] Providers + +------+ + | Care Certified Master Locksmith Name | Role | Phone | + [...] Cerebri | | 2006 | Visit | [place] | | | | | | Photography at | | | | | | [address] | | | | | | [address] | | | | | | Mailcode: PATTI | | | | | | [place], [place] | | | | | | [address] | | | | | | [phone] | | | +--------+---------+ + + + [...] PM DINOAnnabella Au was seen in the [facility] [place] [facility]Ultrasound Department today, 11/30/2006, for ultrasound OU [...]
--- OUTSIDE RECORDS SUMMARY | ~2019-11-01 | XMS | Encounter Summary ---
Demographics + + + | Address | [address] | | | [place] [address] | + + + | Home Phone [...] + + + | Author | [place] [employer] [facility] | + + + | Organization | [facility] [employer] [facility] [...] Providers + +------+ + | Care Surgical Endoscopist Name | Role | Phone | + [...] | | | Ave Mailcode: CH8N | [place], [place] | | | | | [facility] | [address] | | | | | and Healing, | [phone] | | | | | [facility] | | | | | | Floor [place], [place] | | | | | | [address] | | | | | | [phone] | | | +--------+ + + + [...]
--- OUTSIDE RECORDS SUMMARY | ~2019-11-01 | XMS | Encounter Summary ---
Demographics + + + | Address | [address] | | | [place] [address] | + + + | Home Phone [...] + + | Author | [place] [employer] [facility] | + + + | Organization | [facility] [employer] 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 Your head CT was negative for any new findings. The neurosurgeon did not think there was a malfunction in your shunt. The retail asset protection specialist recommends you taking Diomox again and follow up in 1 week at [facility]. Please follow up with your doctor. Rest, [...] TOTH | [address] | [place], [place] | | | N[place]O POINT OF CARE | [address] | [address] | | | TESTS | | | [...] | + + + + + | [facility] | [address] | [place] [address] | | | SERVICES, CORE | SKY [...] | | | | | CHRISTIANO TORRES ([id number]) | | | | | | on 03/14/2013 10:35:55 AM | | | | + + + + + + + + | Specimen | + + | | + + + + + | Narrative | Performed At | + + + | Please click | [facility] | | on view image for the detailed interpretation from JDF results. | CARDIOLOGY | + + + + + + + + | Performing | Address | City/State/Zipcode | Phone Number | | Organization | | | | + + + + + | [facility] | [address] | [place], [place] | | | CARDIOLOGY | [address] | [address] | | + + + + + [...] [facility] | [address] | [place], [place] | | | NACHO POINT OF CARE | [address] | [address] | | | TESTS | | | [...] [facility] | [address] | [place] [address] | | | SERVICES, CORE | PARK [...] | + + + + + | [facility] | [address] | [place] [address] | | | SERVICES, CORE | SKY [...] | | | LABORATORY | | | [place] | | | SERVICES, | | | [...] | + + + + + | [facility] | [address] | [place] [address] | | | SERVICES, CORE | PARK [...] | + + + + + | [employer] (Inspect Manager) | [address] | [place] [address] | | | SERVICES, CORE | SKY [...] + | [place] - AIRPORT - | [address] | [place] [address] | | | [place] | | | [...] | + + + + + | [facility] | [address] | [place] [address] | | | SERVICES, CORE | SKY [...]
--- OUTSIDE RECORDS SUMMARY | ~2019-11-01 | XMS | Encounter Summary ---
Demographics + + + | Address | [address] | | | [place] [address] | + + + | Home Phone [...] + + | Author | [place] [employer] [facility] | + + + | Organization | [facility] [employer] [facility] | + [...] Team Providers + +------+ + | Care Procedure Manager Name | Role | Phone | + +------+ + | Brenden Benavides MD | PCP | | + +------+ + Encounter Details +--------+ + + + + | Date | Type | Department | Care Team | Description | +--------+ + + + + | 02/23/ | Telephone | [facility] | Brad Currie MD | | | 2006 | | [place] | | | | | | Neuro-Ophthalmology | | | | | | [address] | | | | | | [place] Mailcode: CEI | | | | | | Mailcode: [facility]I | | | | | | [place], [place] | | | | | | [address] | | | | | | [phone] | | | +--------+ + + + [...]
--- OUTSIDE RECORDS SUMMARY | ~2019-11-01 | XMS | Encounter Summary ---
Demographics + + + | Address | [address] | | | [place] [address] | + + + | Home Phone [...] Organization | [facility] | [...] Providers + +------+ + | Care Logistics Officer Name | Role | Phone | + +------+ + PCP | Unavailable | + +------+ + Encounter Details +--------+ + + + + | Date | Type | Department | Care Team | Description | +--------+ + + + + | 04/24/ | Hospital | [facility] | | | | 2004 | Encounter | [facility] CTR EM[facility]Y | | | | | | CENTER [address] | | | | | | [place] | | | | | | [address] | | | | | | [phone] | | | +--------+ + + + [...]
--- OUTSIDE RECORDS SUMMARY | ~2019-11-01 | XMS | Encounter Summary ---
Demographics + + + | Address | [address] | | | [place] [address] | [...] | Organization | [facility] | [...] Providers + +------+ + | Care Emergency Vehicle Operations Instructor Name | Role | Phone | + +------+ + PCP | Unavailable | + +------+ + Encounter Details +--------+ + + + + | Date | Type | Department | Care Team | Description | +--------+ + + + + | 10/18/ | Hospital | [facility] | | | | 1991 | Encounter | [facility] | | | | | | HEALTH [address] | | | | | | [place], | | | | | | [place] [address] | | | | | | [phone] | | | +--------+ + + + [...]
--- OUTSIDE RECORDS SUMMARY | ~2019-11-01 | XMS | Encounter Summary ---
Demographics + + + | Address | [address] | | | [place] [address] | + + + | Home Phone [...] | Located Within [facility] | | | [...] Providers + +------+ + | Care Logistics Administrator Name | Role | Phone | + +------+ + PCP | Unavailable | + +------+ + Encounter Details +--------+ + + + + | Date | Type | Department | Care Team | Description | +--------+ + + + + | 08/10/ | Hospital | [facility] | | | | 1990 | Encounter | MED CTR EMERGENCY | | | | | | CENTER [address] | | | | | | [place] | | | | | | [address] | | | | | | [phone] | | | +--------+ + + + [...]
--- OUTSIDE RECORDS SUMMARY | ~2019-11-01 | XMS | Encounter Summary ---
Demographics + + + | Address | [address] | | | [place] [address] | [...] + + + | Author | [place] [employer] [facility] | + + + | Organization | [facility] [employer] [facility] [...] Team Providers + +------+ + | Care Hazmat Cdl A Driver Name | Role | Phone | [...] | | | Ave Mailcode: CH8N | [place], [place] | | | | | [facility] | [address] | | | | | and Healing, | [phone] | | | | | [facility] | | | | | | Floor [place], [place] | | | | | | [address] | | | | | | [phone] | | | +--------+ + + + [...]
--- OUTSIDE RECORDS SUMMARY | ~2019-11-01 | XMS | Encounter Summary ---
Demographics + + + | Address | [address] | | | [place] [address] | + + + | Home Phone [...] + + + | Author | [place] [employer] [facility] | + + + | Organization | [facility] AFTER-MOUSE [facility] [...] Team Providers + +------+ + | Care Integration Developer Name | Role | Phone | [...] | Headache | | 2005 | | [place]/Ophthalmol | MD Jordin | | | | | leon at [facility] [address] | | | | | | [address] Mailcode: | | | | | | CH11P [facility] | | | | | | Health and Healing, | | | | | | Building | | | | | | Floor [place], [place] | | | | | | [address] | | | | | | [phone] | | | +--------+ + + + [...]
--- OUTSIDE RECORDS SUMMARY | ~2019-11-01 | XMS | Encounter Summary ---
Demographics + + + | Address | [address] | | | [place] [address] | + + + | Home Phone [...] + + + | Author | [place] [employer] [facility] | + + + | Organization | [facility] Molecular Imprints Science [facility] | [...] Providers + +------+ + | Care Business Machine Operator Name | Role | Phone [...] [address] | [address] | hospital bed ) | | | | Rd Mailcode: [address] | [place], [place] | | | | | Physician's | [address] | | | | | [place], | [phone] | | | | | [place] [address] | | | | | | [phone] | | | +--------+ + + + [...]
--- OUTSIDE RECORDS SUMMARY | ~2019-11-01 | XMS | Encounter Summary ---
Demographics + + + | Address | [address] | | | [place] [address] | + + + | Home Phone [...] + + + | Author | [place] [employer] [facility] | + + + | Organization | [facility] [employer] Science [facility] | + [...] + +------+ + | Care Health Care Analyst Name | Role | Phone | [...] | | [place] Mailcode:OP14[address] | [place], | | | | | [facility] | [place] [address] | | | | | [place], [place] | | | | | | [address] | | | | | | [phone] | | | +--------+ + + + [...]
--- OUTSIDE RECORDS SUMMARY | ~2019-11-01 | XMS | Encounter Summary ---
Demographics + + + | Address | [address] | | | [place] [address] | + + + | Home Phone [...] + + + | Author | [place] [employer] [facility] | + + + | Organization | [facility] [employer] [facility] | + + + | Address | Unknown | + + + | Phone | Unavailable | + + + Support + + +---------+ + | Name | Relationship | Address | Phone | + + +---------+ + | Ruby Au | ECON | Unknown | | + + +---------+ + Care Team Providers + +------+ + | Care Belly Dancer Name | Role | Phone | [...] | | | | | | | [address] | | | | | | | [address] | | | | | | | [place] | | | | | | | [place], [place] | | | | | | | [address] Phone: | | | | | | | [phone] | +--------+--------+ + + + + Encounter Details +--------+ + + + + | Date | Type | Department | Care Team | Description | +--------+ + + + + | 08/01/ | Hospital | [facility] [address] | Sam Pedroza MD | | | 2007 - | Encounter | [address] | [address] | | | | | [address] | [place], [place] | | | 08/02/ | | [place], | [address] | | | 2007 | | [place] [address] | [phone] | | | | | [phone] | | | +--------+ + + + [...] in 2 weeks, please call for appointment: [phone] Condition On Discharge: Vital Signs at discharge [...] in 2 weeks, please call for appointment: [phone] Condition On Discharge: Vital Signs at discharge [...] at this time. Yessenia Nowak, OTR/ L [address] Tomasz Caldera Md - 02/2008 11:08 AM [...] Performed At | + + + | [id number] | | | [id number] | | | [place] [id number] Date: | | | 08/01/2008 Attending Surgeon: | | | Sam Pedroza M.D. Store Operations Specialist(s): | | | Tomasz Rice M.D. [...] | tonsils and then gently incised. A [place] 4 was then easily fed | | [...] | | | Pooja Pedroza M.D. / [id number] / | | | [id number] / [id number] / | | + + + + + | Procedure Note | + + | Krystal Rushing, Tomasz - 08/01/2008 12:00 AM PDT [id number] | | [id number] [place] | | [id number] Date: 08/01/2008 Attending Surgeon: Sam | | Pooja Pedroza Store Operations Specialist(s): Tomasz Rice M.D. | | Palomo [...] tonsils and | | thengently incised. A [place] 4 was then easily fed through it, [...] Sam Pedroza M.D. KG / | | [id number] / [id number] / [id number] / T: 08/02/2008 | |dripping from the [...] tonsils and then | |gently incised. A [place] 4 was then easily fed through it, [...] | | | |KG / HS | |[id number] / [id number] / [id number] / | | | | | | | | | | | | | | | | | | | | | + + TEACHING PHYSICIAN (08/01/2008 12:00 AM PDT) + + + | Narrative | Performed At | + + + | [id number] | | | [id number] | | | [place] [id number] | | | Date: 08/01/2008 Attending Surgeon: | | | Sam Pedroza M.D. Store Operations Specialist(s): | | | Tomasz Rice M.D. [...] Dr. Palomo Jansen. Sam | | | Pooaj Pedroza / LANETTE [id number] / [id number] / [id number] / [id number] D: | | | 08/01/2008 | | + + + + + | Procedure Note | + + | Sam Pedroza MD - 08/01/2008 12:00 AM PDT [id number] | | [id number] [place] | | [id number] Date: 08/01/2008ttending Surgeon: Sam | | Pooja Pedroza Store Operations Specialist(s): Tomasz Rice M.D. | | Palomo [...] | Bisi. Sam Pedroza M.D. AD / [id number] / [id number] / [id number] / [id number]: | | 08/01/2008T: 08/01/2008 | | | [...] | | | |AD / HS | |[id number] / [id number] / [id number] / 73416 | | | | | | | [...]
--- OUTSIDE RECORDS SUMMARY | ~2019-11-01 | XMS | Encounter Summary ---
Demographics + + + | Address | [address] | | | [place] [address] | + + + | Home Phone [...] + + + | Author | [place] [employer] [facility] | + + + | Organization | [facility] [employer] [facility] | [...] + +------+ + | Care Health Care Marketing Specialist Name | Role | Phone [...] | | | REFERRAL TO | | [place], [place] | | | | | NEUROINTERVE | | [address] | | | | | NTIONAL | | Phone: | | | | | RADIOLOGY | | [phone] | | | | | PRACTICE | | Fax: | | | | | | | [phone] | +--------+--------+ + + + + Reason [...] | | | | Rd Mailcode:OP14B | [place], [place] | | | | | Outpatient Clinic | [address] | | | | | Building [place], | [phone] | | | | | [place] [address] | | | | | | [phone] | | | +--------+---------+ + + + [...] note. CASIMIRO PAYTON MD NEUROSURGERY [facility] [place] [address] Pascual Ballard - 12:00 PM [...] and "tunnel vision." Last saw an plant tech in [facility] 2 months ago. Reportedl y, this showed that her OS vision was worse - no reports available to me at this time. Was a lso admitted to the [facility] for CAPONE about a month [...] Patient was also given a prescription for [place] for CAPONE until she establishs care with [...]
--- OUTSIDE RECORDS SUMMARY | ~2019-11-01 | XMS | Encounter Summary ---
Demographics + + + | Address | [address] | | | [place] [address] | + + + | Home Phone [...] + | Organization | [facility] | | [...] Team Providers + +------+ + | Care Perioperative Assistant Name | Role | Phone | + +------+ + PCP | Unavailable | + +------+ + Encounter Details +--------+ + + + + | Date | Type | Department | Care Team | Description | +--------+ + + + + | 04/24/ | Hospital | [facility] | | | | 1991 | Encounter | MED CTR EMERGENCY | | | | | | CENTER [address] | | | | | | [place] | | | | | | [address] | | | | | | [phone] | | | +--------+ + + + [...]
--- OUTSIDE RECORDS SUMMARY | ~2019-11-01 | XMS | Encounter Summary ---
Demographics + + + | Address | [address] | | | [place] [address] | + + + | Home Phone [...] Organization | [facility] [...] Providers + +------+ + | Care Student Services Counselor Name | Role | Phone | + +------+ + PCP | Unavailable | + +------+ + Encounter Details +--------+ + + + + | Date | Type | Department | Care Team | Description | +--------+ + + + + | 10/12/ | Hospital | [facility] | | | | 1991 | Encounter | MED [facility] | | | | | | HEALTH [address] | | | | | | [place], | | | | | | [place] [address] | | | | | | [phone] | | | +--------+ + + + [...]
[~2019-11-01 17:59] MED LIST changes: +HYDROCODON-ACE1 EA10 PO
--- NOTE | 2019-11-01 20:16 | EKG ---
[facility] [address] [facility] [place] [address] Signed Sinus tachycardia Nonspecific T wave abnormality Abnormal ECG When compared with ECG of 23-JUN-2018 15:45, Nonspecific T wave abnormality now evident in Inferior leads Nonspecific T wave abnormality now evident in Anterior leads Confirmed by DAVION FAUSTIN DO ([id number]) on 11/01/2019 8:16:20 PM Electronically Signed By: DAVION FAUSTIN DO 11/01/19 2016 PATIENT NAME: GABY STEWART Electrocardiogram DATE OF : 75 PHYSICIAN: DAVION FAUSTIN DO REPORT #: [id number] REPORT IS CONFIDENTIAL AND NOT TO BE RELEASED WITHOUT AUTHORIZATION
[2019-11-01] MEDS ORDERED: LEVAQUIN750 MG PO (21:42)
== END 2019-11-01 21:54 | disposition home or self-care (01) ==
LOC: ED 17:59
DX: J44.0 Chronic obstructive pulmonary disease with (acute) lower respiratory infection (principal); J18.9 Pneumonia, unspecified organism; I10 Essential (primary) hypertension; E11.9 Type 2 diabetes mellitus without complications; F17.200 Nicotine dependence, unspecified, uncomplicated; E66.9 Obesity, unspecified; Z88.1 Allergy status to other antibiotic agents; Z88.5 Allergy status to narcotic agent; Z88.8 Allergy status to other drugs, medicaments and biological substances; Z79.899 Other long term (current) drug therapy; Z79.84 Long term (current) use of oral hypoglycemic drugs
CPT/HCPCS: 36415; 71046; 80053; 85025; 85379; 93005; 93010; 99284-25; J1650

== ENCOUNTER 2019-11-02 10:50 | Emergency (ER) | payer OTHER ==
[~2019-11-02] VITALS: Ht 165.1 cm; Wt 115.7 kg
--- OUTSIDE RECORDS SUMMARY | ~2019-11-02 | XMS | Encounter Summary ---
Demographics + + + | Address | [address] | | | [place] [address] | + + + | Home Phone | | + + + | Preferred Language | Unknown | + + + | Marital Status | | + + + | Buddhist Affiliation | NON | + + + | Race | or | + + + | Ethnic Group | Not or | + + + Author + + + | Author | [place] [employer] [facility] | + + + | Organization | [facility] [employer] [facility] | + + + | Address | Unknown | + + + | Phone | Unavailable | + + + Support + + +---------+ + | Name | Relationship | Address | Phone | + + +---------+ + | Ruby Au | ECON | Unknown | | + + +---------+ + Care Team Providers + +------+ + | Care Tapper Supervisor Name | Role | Phone | + +------+ + | Yeison Simms MD | PCP | Unavailable | + +------+ + Reason for Visit + + + | Reason | Comments | + + + | Postoperative visit | | + + + Encounter Details +--------+---------+ + + + | Date | Type | Department | Care Team | Description | +--------+---------+ + + + | 08/26/ | Office | Neurosurgery at | Sam Pedroza MD | Pseudotumor Cerebri | | 2007 | Visit | [facility] [address] | [address] | (Primary Dx) | | | | Ave Mailcode: CH8N | [place], [place] | | | | | [facility] | [address] | | | | | and Healing, | [phone] | | | | | [facility] | | | | | | Floor [place], [place] | | | | | | [address] | | | | | | [phone] | | | +--------+---------+ + + + Social History + + + +--------+------+ | Tobacco Use | Types | Packs/Day | Years | Date | | | | | Used | | + + + +--------+------+ | Current Every Day | Cigarettes | 1 | 15 | | | Smoker | | | | | + + + +--------+------+ + + +---------+ + | Alcohol Use | Drinks/Week | oz/Week | Comments | + + +---------+ + | No | | | | + + +---------+ + + + + | Sex Assigned at | Date Recorded | | | | + + + | Not on file | | + + + + + + + | Job Start Date | Occupation | Industry | + + + + | Not on file | Not on file | Not on file | + + + + + + + + | Travel History | Travel Start | Travel End | + + + + + + | No recent travel history available. | + + documented as of this encounter Last Filed Vital Signs + + + + + | Vital Sign | Reading | Time Taken | Comments | + + + + + | Blood Pressure | 136/78 | 08/26/2008 2:48 PM | | | | | PDT | | + + + + + | Pulse | 95 | 08/26/2008 2:48 PM | | | | | PDT | | + + + + + | Temperature | - | - | | + + + + + | Respiratory Rate | - | - | | + + + + + | Oxygen Saturation | - | - | | + + + + + | Inhaled Oxygen | - | - | | | Concentration | | | | + + + + + | Weight | 111.6 kg (246 lb) | 08/26/2008 2:48 PM | | | | | PDT | | + + + + + | Height | - | - | | + + + + + | Body Mass Index | 40.94 | 07/22/2008 12:42 PM | | | | | PDT | | + + + + + documented in this encounter Progress Notes Kiki Rosen - 08/26/2008 3:17 PM PDTThis patient comes in today after having a LP shun t placed on 08/01/08 for pseudotumor cerebrii. Overall patient is doing well, but did have a bout of stomach issues, including nausea and one episode of vomiting last week. We spoke on the phone and it sounded like she had a stoma ch bug from her children. She claims to be 1/2 better today. She does have a CAPONE that is fron yuridia and rated at 3/10. Neurologically the patient is well, CN II-XII grossly intact. MS intact Sensory intact Wounds healed nicely. Patient s/p LP shunt, doing well, with good relief of CAPONE. Follow up PRN. documented in this encoun ter Plan of Treatment Not on filedocumented as of this encounter Visit Diagnoses + + | Diagnosis | + + | Pseudotumor cerebri - Primary Benign intracranial hypertension | + + documented in this encounter"
--- OUTSIDE RECORDS SUMMARY | ~2019-11-02 | XMS | Encounter Summary ---
Demographics + + + | Address | [address] | | | [place] [address] | + + + | Home Phone | | + + + | Preferred Language | Unknown | + + + | Marital Status | | + + + | Mormonism Affiliation | NON | + + + | Race | or | + + + | Ethnic Group | Not or | + + + Author + + + | Author | [place] [employer] [facility] | + + + | Organization | [facility] [employer] [facility] | + + + | Address | Unknown | + + + | Phone | Unavailable | + + + Support + + +---------+ + | Name | Relationship | Address | Phone | + + +---------+ + | Ruby Au | ECON | Unknown | | + + +---------+ + Care Team Providers + +------+ + | Care Application Infrastructure Engineer Name | Role | Phone | + +------+ + | Pedro Luis Sams MD | PCP | | + +------+ + Reason for Visit + + + | Reason | Comments | + + + | Possible Shunt | | | Malfunction | | + + + Encounter Details +--------+ + + + + | Date | Type | Department | Care Team | Description | +--------+ + + + + | 03/06/ | Telephone | Neurosurgery at | Sam Pedroza MD | Possible Shunt | | 2012 | | [facility] [address] | [address] | [place] | | | | Ave Mailcode: CH8N | [place], [place] | | | | | [facility] | [address] | | | | | and Healing, | [phone] | | | | | [facility] | | | | | | Floor [place], [place] | | | | | | [address] | | | | | | [phone] | | | +--------+ + + + + Social History + + + +--------+------+ | Tobacco Use | Types | Packs/Day | Years | Date | | | | | Used | | + + + +--------+------+ | Current Every Day | Cigarettes | 1 | 15 | | | Smoker | | | | | + + + +--------+------+ + + | Comments: 1 ppd | + + + + +---------+ + | Alcohol Use [...]
--- OUTSIDE RECORDS SUMMARY | ~2019-11-02 | XMS | Encounter Summary ---
Demographics + + + | Address | [address] | | | [place] [address] | + + + | Home Phone | | + + + | Preferred Language | Unknown | + + + | Marital Status | | + + + | Judaism Affiliation | NON | + + + | Race | or | + + + | Ethnic Group | Not or | + + + Author + + + | Author | [place] [employer] [facility] | + + + | Organization | [facility] [employer] [facility] | + + + | Address | Unknown | + + + | Phone | Unavailable | + + + Support + + +---------+ + | Name | Relationship | Address | Phone | + + +---------+ + | Ruby Au | ECON | Unknown | | + + +---------+ + Care Team Providers + +------+ + | Care Marine Architect Name | Role | Phone | + [...] Cerebri | | 2007 | Visit | [facility] [address] | [address] | (Primary Dx) | | | | Ave Mailcode: CH8N | [place], [place] | | | | | [facility] | [address] | | | | | and Healing, | [phone] | | | | | [facility] | | | | | | Floor [place], [place] | | | | | | [address] | | | | | | [phone] | | | +--------+---------+ + + + [...]
--- OUTSIDE RECORDS SUMMARY | ~2019-11-02 | XMS | Encounter Summary ---
Demographics + + + | Address | [address] | | | [place] [address] | + + + | Home Phone | | + + + | Preferred Language | Unknown | + + + | Marital Status | | + + + | Confucianism Affiliation | Unknown | + + + | Race | Unknown | + + + | Ethnic Group | Unknown | + + + Author + + + | Author | [facility] | | | and [place] | + + + | Organization | [facility] | | | and [place] [...] Team Providers + +------+ + | Care Sand Mixer Machine Name | Role | Phone | + +------+ + PCP | Unavailable | + +------+ + Encounter Details +--------+ + + + + | Date | Type | Department | Care Team | Description | +--------+ + + + + | 08/10/ | Hospital | [facility] | | | | 1990 | Encounter | MED CTR EMERGENCY | | | | | | CENTER [address] | | | | | | [place] | | | | | | [address] | | | | | | [phone] | | | +--------+ + + + [...]
--- OUTSIDE RECORDS SUMMARY | ~2019-11-02 | XMS | Encounter Summary ---
Demographics + + + | Address | [address] | | | [place] [address] | + + + | Home Phone | | + + + | Preferred Language | Unknown | + + + | Marital Status | | + + + | Anabaptist Affiliation | Unknown | + + + | Race | Unknown | + + + | Ethnic Group | Unknown | + + + Author + + + | Author | [facility] | | | and [place] | + + + | Organization | [facility] | | | and [place] [...] Team Providers + +------+ + | Care Cutter V Groove Name | Role | Phone | + +------+ + PCP | Unavailable | + +------+ + Encounter Details +--------+ + + + + | Date | Type | Department | Care Team | Description | +--------+ + + + + | 04/24/ | Hospital | [facility] | | | | 1991 | Encounter | MED CTR EMERGENCY | | | | | | CENTER [address] | | | | | | [place] | | | | | | [address] | | | | | | [phone] | | | +--------+ + + + [...]
--- OUTSIDE RECORDS SUMMARY | ~2019-11-02 | XMS | Encounter Summary ---
Demographics + + + | Address | [address] | | | [place] [address] | + + + | Home Phone | | + + + | Preferred Language | Unknown | + + + | Marital Status | | + + + | Anglican Affiliation | Unknown | + + + | Race | Unknown | + + + | Ethnic Group | Unknown | + + + Author + + + | Author | [facility] | | | and [place] | + + + | Organization | [facility] | | | and [place] | [...] Team Providers + +------+ + | Care Band Attacher Name | Role | Phone | + +------+ + PCP | Unavailable | + +------+ + Encounter Details +--------+ + + + + | Date | Type | Department | Care Team | Description | +--------+ + + + + | 01/01/ | Hospital | [facility] | [place], | | | 2009 | Encounter | MED CTR EMERGENCY | Brad Yu MD [address] | | | | | [place] [address] | [facility] | | | | | [place] | [place] [address] | | | | | [address] | [phone] | | | | | [phone] | | | +--------+ + + + [...]
--- OUTSIDE RECORDS SUMMARY | ~2019-11-02 | XMS | Encounter Summary ---
Demographics + + + | Address | [address] | | | [place] [address] | + + + | Home Phone | | + + + | Preferred Language | Unknown | + + + | Marital Status | | + + + | Mormonism Affiliation | Unknown | + + + | Race | Unknown | + + + | Ethnic Group | Unknown | + + + Author + + + | Author | [facility] | | | and [place] | + + + | Organization | [facility] | | | and [place] [...] Team Providers + +------+ + | Care Digester Operator Helper Name | Role | Phone | + +------+ + PCP | Unavailable | + +------+ + Encounter Details +--------+ + + + + | Date | Type | Department | Care Team | Description | +--------+ + + + + | 05/15/ | Hospital | [facility] | | | | 1991 | Encounter | MED CTR XRAY [address] | | | | | | [address] | | | | | | [place] [address] | | | | | | [phone] | | | +--------+ + + + [...]
--- OUTSIDE RECORDS SUMMARY | ~2019-11-02 | XMS | Encounter Summary ---
Demographics + + + | Address | [address] | | | [place] [address] | + + + | Home Phone | | + + + | Preferred Language | Unknown | + + + | Marital Status | | + + + | Mosque Affiliation | Unknown | + + + | Race | Unknown | + + + | Ethnic Group | Unknown | + + + Author + + + | Author | [facility] | | | and [place] | + + + | Organization | [facility] | | | and [place] | [...] Team Providers + +------+ + | Care Nurse Research Name | Role | Phone | + +------+ + PCP | Unavailable | + +------+ + Encounter Details +--------+ + + + + | Date | Type | Department | Care Team | Description | +--------+ + + + + | 09/30/ | Hospital | [facility] | | | | 1991 | Encounter | MED CTR WOMENS | | | | | | HEALTH [address] | | | | | | [place], | | | | | | [place] [address] | | | | | | [phone] | | | +--------+ + + + [...]
--- OUTSIDE RECORDS SUMMARY | ~2019-11-02 | XMS | Encounter Summary ---
Demographics + + + | Address | [address] | | | [place] [address] | + + + | Home Phone | | + + + | Preferred Language | Unknown | + + + | Marital Status | | + + + | Hinduism Affiliation | NON | + + + | Race | or | + + + | Ethnic Group | Not or | + + + Author + + + | Author | [place] [employer] [facility] | + + + | Organization | [facility] | + + + | Address | Unknown | + + + | Phone | Unavailable | + + + Support + + +---------+ + | Name | Relationship | Address | Phone | + + +---------+ + | Ruby Au | ECON | Unknown | | + + +---------+ + Care Team Providers + +------+ + | Care Electric Meter Tester Helper Name | Role | Phone | + +------+ + | Brenden Benavides MD | PCP | | + +------+ + Reason for Visit + + + | Reason | Comments | + + + | Headache | | + + + Encounter Details +--------+ + + + + | Date | Type | Department | Care Team | Description | +--------+ + + + + | 11/11/ | Telephone | [facility] | Bryan Wilson | Headache | | 2005 | | [place]/Ophthalmol | MD Jordin | | | | | leon at [facility] [address] | | | | | | [address] Mailcode: | | | | | | CH11P [facility] | | | | | | Health and Healing, | | | | | | Building | | | | | | Floor [place], [place] | | | | | | [address] | | | | | | [phone] | | | +--------+ + + + [...]
--- OUTSIDE RECORDS SUMMARY | ~2019-11-02 | XMS | Encounter Summary ---
Demographics + + + | Address | [address] | | | [place] [address] | + + + | Home Phone | | + + + | Preferred Language | Unknown | + + + | Marital Status | | + + + | Presybeterian Affiliation | NON | + + + | Race | or | + + + | Ethnic Group | Not or | + + + Author + + + | Author | [place] [employer] [facility] | + + + | Organization | [facility] [employer] [facility] | + + + | Address | Unknown | + + + | Phone | Unavailable | + + + Support + + +---------+ + | Name | Relationship | Address | Phone | + + +---------+ + | Ruby Au | ECON | Unknown | | + + +---------+ + Care Team Providers + +------+ + | Care Steamfitter Apprentice Name | Role | Phone | + +------+ + PCP | Unavailable | + +------+ + Encounter Details +--------+ + + + + | Date | Type | Department | Care Team | Description | +--------+ + + + + | 06/25/ | Telephone | Neurosurgery at | Steph Reyes MD | | | 2010 | | [facility] [address] | | | | | | [place] Mailcode: CH8N | | | | | | [facility] | | | | | | and Healing, | | | | | | Building [address], | | | | | | Floor [place], [place] | | | | | | [address] | | | | | | [phone] | | | +--------+ + + + [...]
--- OUTSIDE RECORDS SUMMARY | ~2019-11-02 | XMS | Encounter Summary ---
Demographics + + + | Address | [address] | | | [place] [address] | + + + | Home Phone | | + + + | Preferred Language | Unknown | + + + | Marital Status | | + + + | Christianity Affiliation | NON | + + + | Race | or | + + + | Ethnic Group | Not or | + + + Author + + + | Author | [place] [employer] [facility] | + + + | Organization | [facility] [employer] [facility] | + + + | Address | Unknown | + + + | Phone | Unavailable | + + + Support + + +---------+ + | Name | Relationship | Address | Phone | + + +---------+ + | Ruby Au | ECON | Unknown | | + + +---------+ + Care Team Providers + +------+ + | Care Radiologic Technology Program Director Name | Role | Phone | + +------+ + | Pedro Luis Sams MD | PCP | | + +------+ + Encounter Details +--------+ + + + + | Date | Type | Department | Care Team | Description | +--------+ + + + + | 02/19/ | Document-Sc | UNKNOWN DEPARTMENT | Unknown . | | | 2012 | anned | [address] | | | | | | [address] | | | | | | [place], [place] | | | | | | [address] | | | +--------+ + + + [...]
--- OUTSIDE RECORDS SUMMARY | ~2019-11-02 | XMS | Encounter Summary ---
Demographics + + + | Address | [address] | | | [place] [address] | + + + | Home Phone | | + + + | Preferred Language | Unknown | + + + | Marital Status | | + + + | Restoration Affiliation | Unknown | + + + | Race | Unknown | + + + | Ethnic Group | Unknown | + + + Author + + + | Author | [facility] | | | and [place] | + + + | Organization | [facility] | | | and [place] [...] Team Providers + +------+ + | Care Iphone Developer Name | Role | Phone | + +------+ + PCP | Unavailable | + +------+ + Encounter Details +--------+ + + + + | Date | Type | Department | Care Team | Description | +--------+ + + + + | 08/01/ | Hospital | [facility] | | | | 1991 | Encounter | MED CTR WOMENS | | | | | | HEALTH SV [address] | | | | | | [place], | | | | | | [place] [address] | | | | | | [phone] | | | +--------+ + + + [...]
--- OUTSIDE RECORDS SUMMARY | ~2019-11-02 | XMS | Encounter Summary ---
Demographics + + + | Address | [address] | | | [place] [address] | + + + | Home Phone | | + + + | Preferred Language | Unknown | + + + | Marital Status | | + + + | Scientology Affiliation | Unknown | + + + | Race | Unknown | + + + | Ethnic Group | Unknown | + + + Author + + + | Author | [facility] | | | and [place] | + + + | Organization | [facility] | | | and [place] [...] Team Providers + +------+ + | Care Admissions Representative Name | Role | Phone | + +------+ + PCP | Unavailable | + +------+ + Encounter Details +--------+ + + + + | Date | Type | Department | Care Team | Description | +--------+ + + + + | 04/21/ | Hospital | [facility] | | | | 1995 | Encounter | MED CTR EMERGENCY | | | | | | CENTER [address] | | | | | | [place] | | | | | | [address] | | | | | | [phone] | | | +--------+ + + + [...]
--- OUTSIDE RECORDS SUMMARY | ~2019-11-02 | XMS | Encounter Summary ---
Demographics + + + | Address | [address] | | | [place] [address] | + + + | Home Phone | | + + + | Preferred Language | Unknown | + + + | Marital Status | | + + + | Pentecostal Affiliation | Unknown | + + + | Race | Unknown | + + + | Ethnic Group | Unknown | + + + Author + + + | Author | [facility] | | | and [place] | + + + | Organization | [facility] | [...] Team Providers + +------+ + | Care Qa Internship Name | Role | Phone | + +------+ + PCP | Unavailable | + +------+ + Encounter Details +--------+ + + + + | Date | Type | Department | Care Team | Description | +--------+ + + + + | 08/21/ | Hospital | [facility] | | | | 1991 | Encounter | MED CTR EMERGENCY | | | | | | CENTER [address] | | | | | | [place] | | | | | | [address] | | | | | | [phone] | | | +--------+ + + + [...]
--- OUTSIDE RECORDS SUMMARY | ~2019-11-02 | XMS | Encounter Summary ---
Demographics + + + | Address | [address] | | | [place] [address] | + + + | Home Phone | | + + + | Preferred Language | Unknown | + + + | Marital Status | | + + + | Mormon Affiliation | Unknown | + + + | Race | Unknown | + + + | Ethnic Group | Unknown | + + + Author + + + | Author | [facility] | | | and [place] | + + + | Organization | [facility] | | | and [place] | [...] Team Providers + +------+ + | Care Photograph Retoucher Name | Role | Phone | + +------+ + PCP | Unavailable | + +------+ + Encounter Details +--------+ + + + + | Date | Type | Department | Care Team | Description | +--------+ + + + + | 10/27/ | Hospital | [facility] | | | | 1990 | Encounter | MED CTR EMERGENCY | | | | | | CENTER [address] | | | | | | [place] | | | | | | [address] | | | | | | [phone] | | | +--------+ + + + [...]
--- OUTSIDE RECORDS SUMMARY | ~2019-11-02 | XMS | Encounter Summary ---
Demographics + + + | Address | [address] | | | [place] [address] | + + + | Home Phone | | + + + | Preferred Language | Unknown | + + + | Marital Status | | + + + | Orthodox Affiliation | Unknown | + + + | Race | Unknown | + + + | Ethnic Group | Unknown | + + + Author + + + | Author | [facility] | | | and [place] | + + + | Organization | [facility] | | | and [place] | [...] Team Providers + +------+ + | Care Food Service Utility Worker Name | Role | Phone | + +------+ + PCP | Unavailable | + +------+ + Encounter Details +--------+ + + + + | Date | Type | Department | Care Team | Description | +--------+ + + + + | 10/10/ | Hospital | [facility] | | | | 1991 | Encounter | MED CTR WOMENS | | | | | | HEALTH SV [address] | | | | | | [place], | | | | | | [place] [address] | | | | | | [phone] | | | +--------+ + + + [...]
--- OUTSIDE RECORDS SUMMARY | ~2019-11-02 | XMS | Encounter Summary ---
Demographics + + + | Address | [address] | | | [place] [address] | + + + | Home Phone | | + + + | Preferred Language | Unknown | + + + | Marital Status | | + + + | Uatsdin Affiliation | NON | + + + | Race | or | + + + | Ethnic Group | Not or | + + + Author + + + | Author | [place] [employer] [facility] | + + + | Organization | [facility] [employer] [facility] | + + + | Address | Unknown | + + + | Phone | Unavailable | + + + Support + + +---------+ + | Name | Relationship | Address | Phone | + + +---------+ + | Ruby Au | ECON | Unknown | | + + +---------+ + Care Team Providers + +------+ + | Care Director Of Retail Name | Role | Phone | + +------+ + | Dennis Maddox | PCP | | + +------+ + Reason for Visit + + + | Reason | Comments | + + + | Telephone follow-up | | + + + Encounter Details +--------+ + + + + | Date | Type | Department | Care Team | Description | +--------+ + + + + | // | Telephone | [facility] | Julieta Mcgrath, | Telephone follow-up | | 2015 | | [place] | [address] | | | | | Neuro-Ophthalmology | [place], [place] | | | | | at [facility] [address] | [address] | | | | | Ave Mailcode: [facility] | [phone] | | | | | [facility] | | | | | | and [address], | | | | | | | | | | | | Floor [place], [place] | | | | | | [address] | | | | | | [phone] | | | +--------+ + + + [...]
--- OUTSIDE RECORDS SUMMARY | ~2019-11-02 | XMS | Encounter Summary ---
Demographics + + + | Address | [address] | | | [place] [address] | + + + | Home Phone | | + + + | Preferred Language | Unknown | + + + | Marital Status | | + + + | Spiritism Affiliation | Unknown | + + + | Race | Unknown | + + + | Ethnic Group | Unknown | + + + Author + + + | Author | [facility] | | | and [place] | + + + | Organization | [facility] | | | and [...] Team Providers + +------+ + | Care Electrical Electronics Engineer Name | Role | Phone | + +------+ + PCP | Unavailable | + +------+ + Encounter Details +--------+ + + + + | Date | Type | Department | Care Team | Description | +--------+ + + + + | 06/20/ | Hospital | [facility] | Yovanny Suazo, | | | 1991 | Encounter | MED CTR WOMENS | MD [address] | | | | | [facility] [address] | [address] | | | | | [place], | [place] [address] | | | | | [place] [address] | [phone] | | | | | [phone] | | | +--------+ + + + [...]
--- OUTSIDE RECORDS SUMMARY | ~2019-11-02 | XMS | Encounter Summary ---
Demographics + + + | Address | [address] | | | [place] [address] | + + + | Home Phone [...] + + + | Author | [place] [employer] [facility] | + + + | Organization | [facility] | + + + | Address | Unknown | + + + | Phone | Unavailable | + + + Support + + +---------+ + | Name | Relationship | Address | Phone | + + +---------+ + | Ruby Au | ECON | Unknown | | + + +---------+ + Care Team Providers + +------+ + | Care Social Worker Name | Role | Phone | [...] Neurosurgery [address] | | | | | [facility] | [address] | | | | | and Healing, | [place], [place] | | | | | [facility] | [address] | | | | | Floor [place], [place] | | | | | | [address] | | | | | | [phone] | | | +--------+ + + + [...]
--- OUTSIDE RECORDS SUMMARY | ~2019-11-02 | XMS | Encounter Summary ---
Demographics + + + | Address | [address] | | | [place] [address] | + + + | Home Phone [...] + + + | Author | [place] [employer] [facility] | + + + | Organization | [facility] [employer] [facility] | + + + | Address | Unknown | + + + | Phone | Unavailable | + + + Support + + +---------+ + | Name | Relationship | Address | Phone | + + +---------+ + | Ruby Au | ECON | Unknown | | + + +---------+ + Care Team Providers + +------+ + | Care Motor Winder Name | Role | Phone | + [...] Refill Request | | 2012 | | [place]/Ophthalmol | MD Perry | | | | | leon at [facility] [address] | | | | | | [address] Mailcode: | | | | | | CH11P [facility] | | | | | | Health and Healing, | | | | | | [facility] | | | | | | Floor [place], [place] | | | | | | [address] | | | | | | [phone] | | | +--------+--------+ + + + [...]
--- OUTSIDE RECORDS SUMMARY | ~2019-11-02 | XMS | Encounter Summary ---
Demographics + + + | Address | [address] | | | [place] [address] | + + + | Home Phone [...] + + + | Author | [place] [employer] [facility] | + + + | Organization | [facility] [employer] [facility] | [...] Providers + +------+ + | Care Health Information Assistant Name | Role | Phone | [...] Cerebri | | 2006 | Visit | [place] | | (Primary Dx) | | | | Neuro-Ophthalmology | | | | | | [address] | | | | | | [place] Mailcode: [facility] | | | | | | Mailcode: [facility] | | | | | | [place], [place] | | | | | | [address] | | | | | | [phone] | | | +--------+---------+ + + + [...] Referred by: CASIMIRO PAYTON MD [address] [place] [address] Symptoms: She has not been taking her [...] Brad Currie MD Neuro-Ophthalmology and Cerebrovascular Disease [employer] [place] Supervisor of Ophthalmology, Neurology, and Neurosurgery documented in [...]
--- OUTSIDE RECORDS SUMMARY | ~2019-11-02 | XMS | Encounter Summary ---
Demographics + + + | Address | [address] | | | [place] [address] | + + + | Home Phone | | + + + | Preferred Language | Unknown | + + + | Marital Status | | + + + | Restorationist Affiliation | NON | + + + | Race | or | + + + | Ethnic Group | Not or | + + + Author + + + | Author | [place] [employer] [facility] | + + + | Organization | [facility] [employer] [facility] | + + + | Address | Unknown | + + + | Phone | Unavailable | + + + Support + + +---------+ + | Name | Relationship | Address | Phone | + + +---------+ + | Ruby Au | ECON | Unknown | | + + +---------+ + Care Team Providers + +------+ + | Care Tablet Coater Name | Role | Phone | + +------+ + | Yeison Simms MD | PCP | Unavailable | + +------+ + Encounter Details +--------+ + + + + | Date | Type | Department | Care Team | Description | +--------+ + + + + | 08/23/ | Telephone | Neurosurgery at | Kiki Rosen, | | | 2007 | | [facility] [address] | [place] | | | | | [place] Mailcode: CH8N | Neurosurgery [address] | | | | | [facility] | [address] | | | | | and Healing, | [place], [place] | | | | | [place] [address] | [address] | | | | | Floor [place], [place] | | | | | | [address] | | | | | | [phone] | | | +--------+ + + + [...]
--- OUTSIDE RECORDS SUMMARY | ~2019-11-02 | XMS | Encounter Summary ---
Demographics + + + | Address | [address] | | | [place] [address] | + + + | Home Phone | | + + + | Preferred Language | Unknown | + + + | Marital Status | | + + + | Hindu Affiliation | Unknown | + + + | Race | Unknown | + + + | Ethnic Group | Unknown | + + + Author + + + | Author | [facility] | | | and [place] | + + + | Organization | [facility] | | | and [...] Team Providers + +------+ + | Care Manuscript Reader Name | Role | Phone | + +------+ + PCP | Unavailable | + +------+ + Encounter Details +--------+ + + + + | Date | Type | Department | Care Team | Description | +--------+ + + + + | 07/10/ | Emergency | [facility] | [address] | Headache; Benign | | 2012 | | MEDICAL CENTER | [place] [address] | intracranial | | | | EMERGENCY CENTER | [address] | hypertension; Back | | | | [address] | [place] [address] | pain | | | | [place], [place] | [phone] | | | | | [address] | | | | | | [phone] | | | +--------+ + + + [...] At | + + + | ANNABELLA Jt MINTHORN XR LUMBAR SPINE LIMITED 2-3 VIEW HISTORY: [...] Conversion - 07/20/2019 5:54 PM PDT [facility] STEWART LUMBAR SPINE | | LIMITED 2-3 VIEW [...] | + + + | ANNABELLA Waters [facility] CT HEAD WO CONTRAST HISTORY: 37 years. [...] Conversion - 07/20/2019 5:54 PM PDT [facility]NA[facility] PRUETT HEAD WO CONTRAST | | HISTORY:37 years. [...] unspecified | + + documented in this encounter"
--- OUTSIDE RECORDS SUMMARY | ~2019-11-02 | XMS | Encounter Summary ---
Demographics + + + | Address | [address] | | | [place] [address] | + + + | Home Phone [...] Organization | [facility] | | | and [place] [...] Team Providers + +------+ + | Care Chemist Biological Name | Role | Phone | + +------+ + PCP | Unavailable | + +------+ + Encounter Details +--------+ + + + + | Date | Type | Department | Care Team | Description | +--------+ + + + + | 05/28/ | Hospital | [facility] | | | | 1991 | Encounter | MED CTR EMERGENCY | | | | | | CENTER [address] | | | | | | [place] | | | | | | [address] | | | | | | [phone] | | | +--------+ + + + [...]
--- OUTSIDE RECORDS SUMMARY | ~2019-11-02 | XMS | Encounter Summary ---
Demographics + + + | Address | [address] | | | [place] [address] | + + + | Home Phone [...] + + | Author | [place] [employer] [facility] | + + + | Organization | [facility] [employer] [facility] | + + + | Address | Unknown | + + + | Phone | Unavailable | + + + Support + + +---------+ + | Name | Relationship | Address | Phone | + + +---------+ + | Ruby Au | ECON | Unknown | | + + +---------+ + Care Team Providers + +------+ + | Care Clay Mixer Name | Role | Phone | + +------+ + | Pedro Luis Sams MD | PCP | | + +------+ + Encounter Details +--------+ + + + + | Date | Type | Department | Care Team | Description | +--------+ + + + + | 08/31/ | Telephone | [facility] | Leticia Pitts MD | | | 2010 | | [place]/Ophthalmol | | | | | | leon at [facility] [address] | | | | | | [address] Mailcode: | | | | | | CH11P Center for | | | | | | Health and Healing, | | | | | | [facility] | | | | | | Floor [place], [place] | | | | | | [address] | | | | | | [phone] | | | +--------+ + + + [...]
--- OUTSIDE RECORDS SUMMARY | ~2019-11-02 | XMS | Encounter Summary ---
Demographics + + + | Address | [address] | | | [place] [address] | + + + | Home Phone | | + + + | Preferred Language | Unknown | + + + | Marital Status | | + + + | Mosque Affiliation | NON | + + + | Race | or | + + + | Ethnic Group | Not or | + + + Author + + + | Author | [place] [employer] [facility] | + + + | Organization | [facility] [employer] [facility] | + + + | Address | Unknown | + + + | Phone | Unavailable | + + + Support + + +---------+ + | Name | Relationship | Address | Phone | + + +---------+ + | Ruby Au | ECON | Unknown | | + + +---------+ + Care Team Providers + +------+ + | Care Pan Washer Name | Role | Phone | + +------+ + | Yeison Simms MD | PCP | Unavailable | + +------+ + Encounter Details +--------+ + + + + | Date | Type | Department | Care Team | Description | +--------+ + + + + | 08/23/ | Telephone | Neurosurgery at | Kiki Rosen, | | | 2007 | | [facility] [address] | [place] | | | | | [place] Mailcode: CH8N | Neurosurgery [address] | | | | | [facility] | [address] | | | | | and Healing, | [place], [place] | | | | | [place] [address] | [address] | | | | | Floor [place], [place] | | | | | | [address] | | | | | | [phone] | | | +--------+ + + + [...]
--- OUTSIDE RECORDS SUMMARY | ~2019-11-02 | XMS | Encounter Summary ---
Demographics + + + | Address | [address] | | | [place] [address] | + + + | Home Phone [...] + + + | Author | [place] [employer] [facility] | + + + | Organization | [facility] [employer] [facility] | + + + | Address | Unknown | + + + | Phone | Unavailable | + + + Support + + +---------+ + | Name | Relationship | Address | Phone | + + +---------+ + | Ruby Au | ECON | Unknown | | + + +---------+ + Care Team Providers + +------+ + | Care Glass Unloading Equipment Tender Name | Role | Phone | [...] | Prescription | | 2012 | | [place]/Ophthalmol | MD Perry | | | | | leon at [facility] [address] | | | | | | [address] Mailcode: | | | | | | CH11P [facility] | | | | | | Health and [facility], | | | | | | Building | | | | | | [place], [place] | | | | | | [address] | | | | | | [phone] | | | +--------+ + + + [...]
--- OUTSIDE RECORDS SUMMARY | ~2019-11-02 | XMS | Encounter Summary ---
Demographics + + + | Address | [address] | | | [place] [address] | + + + | Home Phone | | + + + | Preferred Language | Unknown | + + + | Marital Status | | + + + | Evangelical Affiliation | Unknown | + + + | Race | Unknown | + + + | Ethnic Group | Unknown | + + + Author + + + | Author | [facility] | | | and [place] | + + + | Organization | [facility] | | [...] Providers + +------+ + | Care Solar Sales Assessor Name | Role | Phone | + +------+ + PCP | Unavailable | + +------+ + Encounter Details +--------+ + + + + | Date | Type | Department | Care Team | Description | +--------+ + + + + | 09/07/ | Hospital | [facility] | | | | 1991 | Encounter | MED CTR EMERGENCY | | | | | | CENTER [address] | | | | | | [place] | | | | | | [address] | | | | | | [phone] | | | +--------+ + + + [...]
--- OUTSIDE RECORDS SUMMARY | ~2019-11-02 | XMS | Encounter Summary ---
Demographics + + + | Address | [address] | | | [place] [address] | + + + | Home Phone | | + + + | Preferred Language | Unknown | + + + | Marital Status | | + + + | Adventist Affiliation | NON | + + + | Race | or | + + + | Ethnic Group | Not or | + + + Author + + + | Author | [place] [employer] [facility] | + + + | Organization | [facility] [facility] | + + + | Address | Unknown | + + + | Phone | Unavailable | + + + Support + + +---------+ + | Name | Relationship | Address | Phone | + + +---------+ + | Ruby Au | ECON | Unknown | | + + +---------+ + Care Team Providers + +------+ + | Care Non Licensed Nuclear Plant Operator Name | Role | Phone | [...] | | Ophthalmology | | Non-[facility] | [place], | | | | | | Epic Dept | Graciela Guardado MD | | | | | | | [address] | | | | | | | [address] | | | | | | | [place], [place] | | | | | | | [address] | | | | | | | Phone: | | | | | | | [phone] | | | | | | | Fax: | | | | | | | [phone] | +--------+--------+ + + + + Encounter Details +--------+---------+ + + + | Date | Type | Department | Care Team | Description | +--------+---------+ + + + | 03/26/ | Office | [facility] | Mo Hood | Pseudotumor cerebri | | 2012 | Visit | [place]/Ophthalmol | MD [place] | (Primary Dx); | | | | ogy at [facility] [address] | | Depression; Type II | | | | [address] [place] Mailcode: | | or unspecified type | | | | [address] for | | diabetes mellitus | | | | Health and Healing, | | without mention of | | | | Building | | complication, not | | | | Floor [place], [place] | | stated as | | | | [address] | | uncontrolled; PTSD | | | | [phone] | | (post-traumatic | | | | [...] HPI: 37 y.o. year old female from [place] : Patient presents with: IIH - Idiopathic [...] because they live 4 hours away in [facility]. Tobacco use: reports that she [...] Right Left Disc 1+ Optic disc edema, +SEMICONDUCTOR TECHNICIAN 2+ Optic disc edema, RNFL whitening at the superonasal borde r of the disc. There is spontaneous pulsing of the entire disc head with heart beat. C/D Ratio 0.1 0.1 Macula Normal Normal Vessels Engorged. tortuous Engorged. tortuous Periphery Normal Normal Neuro/Psych Oriented x3: Yes Mood/Affect: Normal See [facility] Ophthalmology Exam Module for additional exam [...] sheath fenestra tion (by Dr. Hughes at [facility] in 2006) and s/p multiple [...] Dr. Lux. Mo Hood MD Resident Physician [facility] [place], PGY-2 [facility] Physician: Mo Hood MD, 03/26/2013 documented [...]
--- OUTSIDE RECORDS SUMMARY | ~2019-11-02 | XMS | Encounter Summary ---
Demographics + + + | Address | [address] | | | [place] [address] | + + + | Home Phone [...] + + + | Author | [place] [employer] [facility] | + + + | Organization | [facility] [employer] [facility] | + + + | Address | Unknown | + + + | Phone | Unavailable | + + + Support + + +---------+ + | Name | Relationship | Address | Phone | + + +---------+ + | Rbuy Au | ECON | Unknown | | + + +---------+ + Care Team Providers + +------+ + | Care Superintendent Quarry Name | Role | Phone | + [...] Refill Request | | 2006 | | [place] | [facility] | | | | | Oculoplastics at | Rd [place], [place] | | | | | [address] | [address] | | | | | [address] | | | | | | Mailcode: [facility] | | | | | | [place], [place] | | | | | | [address] | | | | | | [phone] | | | +--------+ + + + [...]
--- OUTSIDE RECORDS SUMMARY | ~2019-11-02 | XMS | Encounter Summary ---
Demographics + + + | Address | [address] | | | [place] [address] | + + + | Home Phone | | + + + | Preferred Language | Unknown | + + + | Marital Status | | + + + | Sikh Affiliation | Unknown | + + + | Race | Unknown | + + + | Ethnic Group | Unknown | + + + Author + + + | Author | [facility] | | | and [place] | + + + | Organization | [facility] | [...] Team Providers + +------+ + | Care Fuel Pilot Engineer Name | Role | Phone | + +------+ + PCP | Unavailable | + +------+ + Encounter Details +--------+ + + + + | Date | Type | Department | Care Team | Description | +--------+ + + + + | 11/04/ | Hospital | [facility] | Unknown, | | | 2004 | Encounter | MED CTR XRAY [address] | MD Sudhakar | | | | | [address] [place] | | | | | | [place] [address] | (Fax) | | | | | [phone] | | | +--------+ + + + [...]
--- OUTSIDE RECORDS SUMMARY | ~2019-11-02 | XMS | Encounter Summary ---
Demographics + + + | Address | [address] | | | [place] [address] | + + + | Home Phone [...] + + | Author | [place] [employer] [facility] | + + + | Organization | [facility] [employer] [facility] | [...] Providers + +------+ + | Care Supervisor Wet End Name | Role | Phone | + [...] Telephone follow-up | | 2015 | | [place] | [address] | | | | | Neuro-Ophthalmology | [place], [place] | | | | | at [facility] [address] | [address] | | | | | Ave Mailcode: [facility] | [phone] | | | | | [facility] | | | | | | and [place], | | | | | | | | | | | | Floor [place], [place] | | | | | | [address] | | | | | | [phone] | | | +--------+ + + + [...]
--- OUTSIDE RECORDS SUMMARY | ~2019-11-02 | XMS | Encounter Summary ---
Demographics + + + | Address | [address] | | | [place] [address] | + + + | Home Phone [...] + + + | Author | [place] [employer] [facility] | + + + | Organization | [facility] | + + + | Address | Unknown | + + + | Phone | Unavailable | + + + Support + + +---------+ + | Name | Relationship | Address | Phone | + + +---------+ + | Ruby Au | ECON | Unknown | | + + +---------+ + Care Team Providers + +------+ + | Care Agricultural Crop Farm Manager Name | Role | Phone | + +------+ + | Brenden Benavides MD | PCP | | + +------+ + Encounter Details +--------+ + + + + | Date | Type | Department | Care Team | Description | +--------+ + + + + | 01/05/ | Telephone | [facility] | Brad Currie MD | | | 2006 | | [place] | | | | | | Neuro-Ophthalmology | | | | | | [address] | | | | | | [place] Mailcode: [facility] | | | | | | Mailcode: [facility] | | | | | | [place], [place] | | | | | | [address] | | | | | | [phone] | | | +--------+ + + + [...]
--- OUTSIDE RECORDS SUMMARY | ~2019-11-02 | XMS | Encounter Summary ---
Demographics + + + | Address | [address] | | | [place] [address] | + + + | Home Phone [...] + + + | Author | [place] [employer] [facility] | + + + | Organization | [facility] | [...] Team Providers + +------+ + | Care Pound Attendant Name | Role | Phone | + +------+ + | Yeison Simms MD | PCP | Unavailable | + +------+ + Encounter Details +--------+ + + + + | Date | Type | Department | Care Team | Description | +--------+ + + + + | 05/26/ | Telephone | Neurosurgery at | Kiki Rosen, | | | 2008 | | [facility] [address] | [place] | | | | | [place] Mailcode: CH8N | Neurosurgery [address] | | | | | [facility] | [address] | | | | | and Healing, | [place], [place] | | | | | [place] [address] | [address] | | | | | Floor [place], [place] | | | | | | [address] | | | | | | [phone] | | | +--------+ + + + [...]
--- OUTSIDE RECORDS SUMMARY | ~2019-11-02 | XMS | Encounter Summary ---
Demographics + + + | Address | [address] | | | [place] [address] | + + + | Home Phone [...] | Organization | [facility] | | | and [...] Team Providers + +------+ + | Care Associate Professor Of Anthropology Name | Role | Phone | + +------+ + PCP | Unavailable | + +------+ + Encounter Details +--------+ + + + + | Date | Type | Department | Care Team | Description | +--------+ + + + + | 09/30/ | Hospital | [facility] | | | | 1991 | Encounter | MED CTR WOMENS | | | | | | HEALTH [address] | | | | | | [place], | | | | | | [place] [address] | | | | | | [phone] | | | +--------+ + + + [...]
--- OUTSIDE RECORDS SUMMARY | ~2019-11-02 | XMS | Encounter Summary ---
Demographics + + + | Address | [address] | | | [place] [address] | + + + | Home Phone [...] + + + | Author | [place] [employer] [facility] | + + + | Organization | [facility] [employer] [facility] | + + + | Address | Unknown | + + + | Phone | Unavailable | + + + Support + + +---------+ + | Name | Relationship | Address | Phone | + + +---------+ + | Ruby Au | ECON | Unknown | | + + +---------+ + Care Team Providers + +------+ + | Care Ingot Header Name | Role | Phone | + +------+ + | Yeison Simms MD | PCP | Unavailable | + +------+ + Encounter Details +--------+ + + + + | Date | Type | Department | Care Team | Description | +--------+ + + + + | 08/23/ | Telephone | Neurosurgery at | Kiki Rosen, | | | 2007 | | [facility] [address] | [place] | | | | | [place] Mailcode: CH8N | Neurosurgery [address] | | | | | [facility] | [address] | | | | | and Healing, | [place], [place] | | | | | [place] [address] | [address] | | | | | Floor [place], [place] | | | | | | [address] | | | | | | [phone] | | | +--------+ + + + [...]
--- OUTSIDE RECORDS SUMMARY | ~2019-11-02 | XMS | Encounter Summary ---
Demographics + + + | Address | [address] | | | [place] [address] | + + + | Home Phone [...] + + + | Author | [place] [employer] [facility] | + + + | Organization | [facility] [employer] [facility] | + + + | Address | Unknown | + + + | Phone | Unavailable | + + + Support + + +---------+ + | Name | Relationship | Address | Phone | + + +---------+ + | Ruby Au | ECON | Unknown | | + + +---------+ + Care Team Providers + +------+ + | Care Hose Suspender Cutter Name | Role | Phone | [...] | | | Ave Mailcode: CH8N | [place], [place] | | | | | [facility] | [address] | | | | | and Healing, | [phone] | | | | | [facility] | | | | | | Floor [place], [place] | | | | | | [address] | | | | | | [phone] | | | +--------+ + + + [...]
--- OUTSIDE RECORDS SUMMARY | ~2019-11-02 | XMS | Encounter Summary ---
Demographics + + + | Address | [address] | | | [place] [address] | + + + | Home Phone | | + + + | Preferred Language | Unknown | + + + | Marital Status | | + + + | Shinto Affiliation | Unknown | + + + | Race | Unknown | + + + | Ethnic Group | Unknown | + + + Author + + + | Author | [facility] | | | and [place] | + + + | Organization | [facility] | | | and [place] | [...] Providers + +------+ + | Care Tool And Die Inspector Name | Role | Phone | + +------+ + PCP | Unavailable | + +------+ + Encounter Details +--------+ + + + + | Date | Type | Department | Care Team | Description | +--------+ + + + + | 10/04/ | Hospital | [facility] | | | | 1991 | Encounter | MED CTR WOMENS | | | | | | HEALTH [address] | | | | | | [place], | | | | | | [place] [address] | | | | | | [phone] | | | +--------+ + + + [...]
--- OUTSIDE RECORDS SUMMARY | ~2019-11-02 | XMS | Encounter Summary ---
Demographics + + + | Address | [address] | | | [place] [address] | + + + | Home Phone | | + + + | Preferred Language | Unknown | + + + | Marital Status | | + + + | Muslim Affiliation | NON | + + + | Race | or | + + + | Ethnic Group | Not or | + + + Author + + + | Author | [place] [employer] [facility] | + + + | Organization | [facility] [facility] | + + + | Address | Unknown | + + + | Phone | Unavailable | + + + Support + + +---------+ + | Name | Relationship | Address | Phone | + + +---------+ + | Ruby Au | ECON | Unknown | | + + +---------+ + Care Team Providers + +------+ + | Care Folded Cloth Taper Name | Role | Phone | + [...] (pain at | | 2008 | | [facility] [address] | [address] | incision site) | | | | Ave Mailcode: CH8N | [place], [place] | | | | | [facility] | [address] | | | | | and Healing, | [phone] | | | | | [facility] | | | | | | Floor [facility] [place] | | | | | | [address] | | | | | | [phone] | | | +--------+ + + + [...]
--- OUTSIDE RECORDS SUMMARY | ~2019-11-02 | XMS | Encounter Summary ---
Demographics + + + | Address | [address] | | | [place] [address] | + + + | Home Phone [...] + + + | Author | [place] [employer] [facility] | + + + | Organization | [facility] [employer] [facility] | + [...] Team Providers + +------+ + | Care Ground Support Equipment Mechanic Name | Role | Phone | [...] | | | Ave Mailcode: CH8N | [place], [place] | | | | | [facility] | [address] | | | | | and [facility], | [phone] | | | | | [facility] | | | | | | Floor [place], [place] | | | | | | [address] | | | | | | [phone] | | | +--------+ + + + [...]
--- OUTSIDE RECORDS SUMMARY | ~2019-11-02 | XMS | Encounter Summary ---
Demographics + + + | Address | [address] | | | [place] [address] | + + + | Home Phone | | + + + | Preferred Language | Unknown | + + + | Marital Status | | + + + | Hinduism Affiliation | Unknown | + + + | Race | Unknown | + + + | Ethnic Group | Unknown | + + + Author + + + | Author | [facility] | | | and [place] | + + + | Organization | [facility] | | | and [...] Team Providers + +------+ + | Care Tar And Ammonia Pump Operator Name | Role | Phone | + +------+ + PCP | Unavailable | + +------+ + Encounter Details +--------+ + + + + | Date | Type | Department | Care Team | Description | +--------+ + + + + | 07/30/ | Hospital | [facility] | | | | 2008 - | Encounter | MED CTR MED ONC | | | | | | [address] [place] | | | | 08/02/ | | [place] [address] | | | | 2008 | | [phone] | | | +--------+ + + + [...]
--- OUTSIDE RECORDS SUMMARY | ~2019-11-02 | XMS | Encounter Summary ---
Demographics + + + | Address | [address] | | | [place] [address] | + + + | Home Phone [...] Organization | [facility] | | | and [place] [...] Providers + +------+ + | Care Diesel Engine Ii Pipe Fitter Name | Role | Phone | + +------+ + PCP | Unavailable | + +------+ + Encounter Details +--------+ + + + + | Date | Type | Department | Care Team | Description | +--------+ + + + + | 08/12/ | Hospital | [facility] | Jenn [place], | | | 2012 | Encounter | HOSPITAL EMERGENCY | [facility] [address] | | | | | CENTER [address] | [place] | | | | | [place] | [address] | | | | | [address] | | | | | | [phone] | | | +--------+ + + + [...]
--- OUTSIDE RECORDS SUMMARY | ~2019-11-02 | XMS | Encounter Summary ---
Demographics + + + | Address | [address] | | | [place] [address] | + + + | Home Phone [...] + + + | Author | [place] [employer] [facility] | + + + | Organization | [facility] [employer] [facility] | + + + | Address | Unknown | + + + | Phone | Unavailable | + + + Support + + +---------+ + | Name | Relationship | Address | Phone | + + +---------+ + | Ruby Au | ECON | Unknown | | + + +---------+ + Care Team Providers + +------+ + | Care Physician Practice Coordinator Name | Role | Phone | [...] | | | Ave Mailcode: CH8N | [place], [place] | | | | | [facility] | [address] | | | | | and Healing, | [phone] | | | | | [facility] | | | | | | Floor [place], [place] | | | | | | [address] | | | | | | [phone] | | | +--------+ + + + [...]
--- OUTSIDE RECORDS SUMMARY | ~2019-11-02 | XMS | Encounter Summary ---
Demographics + + + | Address | [address] | | | [place] [address] | + + + | Home Phone [...] + + + | Author | [place] [employer] [facility] | + + + | Organization | [facility] [facility] | + + + | Address | Unknown | + + + | Phone | Unavailable | + + + Support + + +---------+ + | Name | Relationship | Address | Phone | + + +---------+ + | Ruby Au | ECON | Unknown | | + + +---------+ + Care Team Providers + +------+ + | Care Neurology Professor Name | Role | Phone | [...] | | | | | cerebri | [address] | | | | | | Procedures | Ave | | | | | | CONSULT TO | [place], [place] | | | | | | [facility] | [address] | | | | | | | Phone: | | | | | | | [phone] | | | | | | | Fax: | | | | | | | [phone] | | +--------+--------+ + + + + [...] + | 09/05/ | Office | Neurosurgery [address] | Sam ePdroza MD | Pseudotumor Cerebri | | 2005 | Visit | [address] | [address] | (Primary Dx) | | | | Rd Mailcode:OP14B | [place], [place] | | | | | [facility] | [address] | | | | | [place], [place] | [phone] | | | | | [address] | | | | | | [phone] | | | +--------+---------+ + + + [...] J Carlos Nice - 09/05/2006 11:44 AM Portillopilar Au is a 31 y.o. female with a histor y of headaches. She was being treated for the headahces but then began to suffer visual lesley nges last January. She was referred to ophthalmology where she states that abnormalities on e xam were documented. This prompted a lumbar puncture which revealed elevated opening pressu re. Referral to Dr. Maloney in [place] where a lumboperitoneal shunt was placed and subsequently explanted due to infection and migration of the catheter tip from the peritoneal space. She feels that her symptoms were helped at the time of the placement of the shunt; the head aches and visual problems have worsened since shunt removal. She has opted to come to [facility] rather than to return to [place] based on travel convenience. Review of Systems: [...] brain without; Neuro-ophthalmology consultation. documented in this [facility]ma [facility]alt[facility] er Plan of Treatment Not on filedocumented [...] | | | | | CONTRAST | [facility]. | | | | | | M.D.NONCONTRAST HEAD CT | | | | | [...] | | + +---------+ + + | [facility] DEPARTMENT OF | | | | | RADIOLOGY | | | | + +---------+ + + documented in this encounter Visit Diagnoses + + | Diagnosis | + + | Pseudotumor cerebri - Primary Benign intracranial hypertension | + + documented in this encounter
--- OUTSIDE RECORDS SUMMARY | ~2019-11-02 | XMS | Encounter Summary ---
Demographics + + + | Address | [address] | | | [place] [address] | + + + | Home Phone [...] + + + | Author | [place] [employer] [facility] | + + + | Organization | [facility] [facility] | + + + | Address | Unknown | + + + | Phone | Unavailable | + + + Support + + +---------+ + | Name | Relationship | Address | Phone | + + +---------+ + | Ruby Au | ECON | Unknown | | + + +---------+ + Care Team Providers + +------+ + | Care Social Services Specialist Name | Role | Phone | [...] | Headache | | 2008 | | [facility] [address] | [address] | | | | | Ave Mailcode: CH8N | [place], [place] | | | | | [facility] | [address] | | | | | and Healing, | [phone] | | | | | [facility] | | | | | | Floor [place], [place] | | | | | | [address] | | | | | | [phone] | | | +--------+ + + + [...]
--- OUTSIDE RECORDS SUMMARY | ~2019-11-02 | XMS | Encounter Summary ---
Demographics + + + | Address | [address] | | | [place] [address] | + + + | Home Phone [...] + + + | Author | [place] [employer] [facility] | + + + | Organization | [facility] [employer] [facility] | + + + | Address | Unknown | + + + | Phone | Unavailable | + + + Support + + +---------+ + | Name | Relationship | Address | Phone | + + +---------+ + | Ruby Au | ECON | Unknown | | + + +---------+ + Care Team Providers + +------+ + | Care Burring Wheel Operator Name | Role | Phone [...] | | | Ave Mailcode: CH8N | [place], [place] | | | | | [facility] | [address] | | | | | and [place], | [phone] | | | | | [facility] | | | | | | Floor [place], [place] | | | | | | [address] | | | | | | [phone] | | | +--------+ + + + [...]
--- OUTSIDE RECORDS SUMMARY | ~2019-11-02 | XMS | Encounter Summary ---
Demographics + + + | Address | [address] | | | [place] [address] | + + + | Home Phone [...] + + + | Author | [place] [employer] [facility] | + + + | Organization | [facility] [employer] [facility] | + + + | Address | Unknown | + + + | Phone | Unavailable | + + + Support + + +---------+ + | Name | Relationship | Address | Phone | + + +---------+ + | Ruby Au | ECON | Unknown | | + + +---------+ + Care Team Providers + +------+ + | Care Silo Erector Name | Role | Phone | + [...] Cerebri | | 2005 | Visit | [place] | | (Primary Dx) | | | | Neuro-Ophthalmology | | | | | | [address] | | | | | | [address] Mailcode: CEI | | | | | | Mailcode: CEI | | | | | | [place], [place] | | | | | | [address] | | | | | | [phone] | | | +--------+---------+ + + + [...] Brad Currie MD Neuro-Ophthalmology and Cerebrovascular Disease Staging Technician of Ophthalmology, Neurology, and Neurosurgery documented in this encounter Plan of Treatment + + +--------+ + + | Name | Type | Priori | Associated Diagnoses | Order Schedule | | | | ty | | | + + +--------+ + + | UT VISUAL FIELD | Procedures | Routin | Pseudotumor | Ordered: 10/13/2006 | | EXAM,EXTENDED | | e | Cerebri | | + + +--------+ + + documented as of this encounter Visit Diagnoses + + | Diagnosis | + + | Pseudotumor cerebri - Primary Benign intracranial hypertension | + + documented in this encounter"
--- OUTSIDE RECORDS SUMMARY | ~2019-11-02 | XMS | Encounter Summary ---
Demographics + + + | Address | [address] | | | [place] [address] | + + + | Home Phone [...] + + + | Author | [place] Lil [employer]key [employer] [facility] | + + + | Organization | [facility] [employer] [facility] | + [...] Providers + +------+ + | Care Cook Fish Eggs Name | Role | Phone | + +------+ + | Yeison Simms MD | PCP | Unavailable | + +------+ + Reason for Visit + + + | Reason | Comments | + + + | Refill Request | refill on [place] | + + + Encounter Details +--------+--------+ + + + | Date | Type | Department | Care Team | Description | +--------+--------+ + + + | 08/27/ | Refill | Neurosurgery at | Sam Pedroza MD | Refill Request | | 2007 | | [facility] [address] | [address] | (refill on [place]) | | | | Ave Mailcode: CH8N | [place], [place] | | | | | [facility] | [address] | | | | | and Healing, | [phone] | | | | | [facility] | | | | | | Floor [place], [place] | | | | | | [address] | | | | | | [phone] | | | +--------+--------+ + + + [...]
--- OUTSIDE RECORDS SUMMARY | ~2019-11-02 | XMS | Encounter Summary ---
Demographics + + + | Address | [address] | | | [place] [address] | + + + | Home Phone [...] + + + | Author | [place] [employer] [facility] | + + + | Organization | [facility] [employer] [facility] [...] Providers + +------+ + | Care Financial Services Manager Name | Role | Phone | [...] Cerebri | | 2006 | Visit | [place] | [address] | (Primary Dx) | | | | Oculoplastics at | [place], [place] | | | | | [place] [address] | [address] | | | | | [address] | [phone] | | | | | Mailcode: PATTI | | | | | | [place], [place] | | | | | | [address] | | | | | | [phone] | | | +--------+---------+ + + + [...]
--- OUTSIDE RECORDS SUMMARY | ~2019-11-02 | XMS | Encounter Summary ---
Demographics + + + | Address | [address] | | | [place] [address] | + + + | Home Phone [...] + + + | Author | [place] Single [employer] [facility] | + + + | Organization | [facility] [employer] [facility] | [...] Team Providers + +------+ + | Care Registered Nurse Post Partum Name | Role | Phone | + [...] | | | Ave Mailcode: CH8N | [place], [place] | | | | | [facility] | [address] | | | | | and Healing, | [phone] | | | | | [facility] | | | | | | Floor [facility] [place] | | | | | | [address] | | | | | | [phone] | | | +--------+ + + + [...]
--- OUTSIDE RECORDS SUMMARY | ~2019-11-02 | XMS | Encounter Summary ---
Demographics + + + | Address | [address] | | | [place] [address] | + + + | Home Phone [...] + + + | Author | [place] [employer] [facility] | + + + | Organization | [facility] [employer] [facility] | + + + | Address | Unknown | + + + | Phone | Unavailable | + + + Support + + +---------+ + | Name | Relationship | Address | Phone | + + +---------+ + | Ruby Au | ECON | Unknown | | + + +---------+ + Care Team Providers + +------+ + | Care Hoof And Shoe Inspector Name | Role | Phone | [...] Cerebri | | 2006 | Visit | [place] | | (Primary Dx) | | | | Neuro-Ophthalmology | | | | | | [address] | | | | | | [place] Mailcode: CEI | | | | | | Mailcode: CEI | | | | | | [place], [place] | | | | | | [address] | | | | | | [phone] | | | +--------+---------+ + + + [...] the becca starkey. Neuro-Ophthalmology Return Patient Evaluation 11/30/2006 Referred by: [...] Brad Currie MD Neuro-Ophthalmology and Cerebrovascular Disease Assistant Teaching Professor of Ophthalmology, Neurology, and Neurosurgery documented in [...]
--- OUTSIDE RECORDS SUMMARY | ~2019-11-02 | XMS | Encounter Summary ---
Demographics + + + | Address | [address] | | | [place] [address] | + + + | Home Phone [...] + + | Organization | [facility] | | | and [...] Team Providers + +------+ + | Care Child Nutrition Assistant Name | Role | Phone | + +------+ + PCP | Unavailable | + +------+ + Encounter Details +--------+ + + + + | Date | Type | Department | Care Team | Description | +--------+ + + + + | 09/30/ | Hospital | [facility] | | | | 1990 | Encounter | [facility] | | | | | | CENTER [address] | | | | | | [place] | | | | | | [address] | | | | | | [phone] | | | +--------+ + + + [...]
--- OUTSIDE RECORDS SUMMARY | ~2019-11-02 | XMS | Encounter Summary ---
Demographics + + + | Address | [address] | | | [place] [address] | + + + | Home Phone [...] + + + | Author | [place] [employer] [facility] | + + + | Organization | [facility] [employer] [facility] | + + + | Address | Unknown | + + + | Phone | Unavailable | + + + Support + + +---------+ + | Name | Relationship | Address | Phone | + + +---------+ + | Ruby Au | ECON | Unknown | | + + +---------+ + Care Team Providers + +------+ + | Care Plant Culture Manager Name | Role | Phone | [...] Operative Report | | 2006 | | [place] [facility] | | | | | Transcribed | [address] | | | | | | Mailcode: Center | | | | | | for Health and | | | | | | Healing, [facility] [address] | | | | | | [place], [place] | | | | | | [address] | | | | | | [phone] | | | +--------+ + + + [...] | 02/07/2007 12:00 AM PDT | | [id number] | | [id number] [place] [id number] | | | | Date: 02/07/2007 | | | | Attending Surgeon: Hay Hughes M.D. | | | | Biometrics Analyst(s): Pascual Bermudez M.D. | | | | [...] and medial orbital | | septum. The optometric assistant retracted the orbital fat bag with [...] | | KYM / LANETTE | | [id number] / [id number] / [id number] / 53360 | | | | | | | | cc: | | | | | | Brad Currie M.D. | | [facility] | | | | | | Brenden Benavides M.D. | | [facility] | | [address] | | [place] [address] | | | | | | Electronically signed by Hay Hughes 02-12-2007 05:13:05 PM | | | | | + + documented in this encounter Visit Diagnoses Not on filedocumented in this encounter"
--- OUTSIDE RECORDS SUMMARY | ~2019-11-02 | XMS | Encounter Summary ---
Demographics + + + | Address | [address] | | | [place] [address] | + + + | Home Phone [...] + + + | Author | [place] [employer] [facility] | + + + | Organization | [facility] [place] [facility] | + [...] Team Providers + +------+ + | Care Driver License Examiner Name | Role | Phone | [...] | | | Ave Mailcode: CH8N | [place], [place] | Encounters | | | | [facility] | [address] | | | | | and [place], | [phone] | | | | | [facility] | | | | | | Floor [place], [place] | | | | | | [address] | | | | | | [phone] | | | +--------+ + + + [...]
--- OUTSIDE RECORDS SUMMARY | ~2019-11-02 | XMS | Encounter Summary ---
Demographics + + + | Address | [address] | | | [place] [address] | + + + | Home Phone [...] + + + | Author | [place] [facility] | + + + | Organization | [facility] | + + + | Address | Unknown | + + + | Phone | Unavailable | + + + Support + + +---------+ + | Name | Relationship | Address | Phone | + + +---------+ + | Ruby Au | ECON | Unknown | | + + +---------+ + Care Team Providers + +------+ + | Care Railcar Brake Operator Name | Role | Phone | + +------+ + | Yeison Simms MD | PCP | Unavailable | + +------+ + Encounter Details +--------+ + + + + | Date | Type | Department | Care Team | Description | +--------+ + + + + | 12/24/ | Telephone | Neurosurgery at | [place]iki [place], | | | 2008 | | [facility] [address] | [place] | | | | | [place] Mailcode: CH8N | Neurosurgery [address] | | | | | [facility] | [address] | | | | | and Healing, | [place], [place] | | | | | [place] [address] | [address] | | | | | Floor [place], [place] | | | | | | [address] | | | | | | [phone] | | | +--------+ + + + [...]
--- OUTSIDE RECORDS SUMMARY | ~2019-11-02 | XMS | Encounter Summary ---
Demographics + + + | Address | [address] | | | [place] [address] | + + + | Home Phone [...] + + + | Author | [place] [employer] [facility] | + + + | Organization | [facility] [employer] [facility] [...] Team Providers + +------+ + | Care Farm Equipment Service Technician Name | Role | Phone | [...] Cerebri | | 2005 | Visit | [place] | | (Primary Dx) | | | | Neuro-Ophthalmology | | | | | | [address] | | | | | | Blvd Mailcode: CEI | | | | | | Mailcode: CEI | | | | | | [place], [place] | | | | | | [address] | | | | | | [phone] | | | +--------+---------+ + + + [...] Brad Currie MD Neuro-Ophthalmology and Cerebrovascular Disease Drain Tile Machine Operator of Ophthalmology, Neurology, and Neurosurgery documented [...]
--- OUTSIDE RECORDS SUMMARY | ~2019-11-02 | XMS | Encounter Summary ---
Demographics + + + | Address | [address] | | | [place] [address] | + + + | Home Phone [...] + + + | Author | [place] [employer] [facility] | + + + | Organization | [facility] [employer] [facility] | + [...] Team Providers + +------+ + | Care Software Engineering Manager Name | Role | Phone | [...] | | | REFERRAL TO | | [place], [place] | | | | | NEUROINTERVE | | [address] | | | | | NTIONAL | | Phone: | | | | | RADIOLOGY | | [phone] | | | | | PRACTICE | | Fax: | | | | | | | [phone] | +--------+--------+ + + + + Reason for Visit + + + | Reason | Comments | + + + | Follow-up in | | | outpatient clinic | | + + + Encounter Details +--------+---------+ + + + | Date | Type | Department | Care Team | Description | +--------+---------+ + + + | 05/01/ | Office | Neurosurgery 3181 | Casimiro Payton MD | Pseudotumor Cerebri | | 2007 | Visit | Paul [place] | [address] | (Primary Dx) | | | | Rd Mailcode:OP14B | [place], [place] | | | | | Outpatient Clinic | [address] | | | | | Building [place], | [phone] | | | | | [place] [address] | | | | | | [phone] | | | +--------+---------+ + + + [...] resident s note. CASIMIRO PAYTON MD NEUROSURGERY [facility] [place] [address] Pascual Ballard - 12:00 PM [...] spots" and "tunnel vision." Last saw an manager applied in [facility] 2 months ago. Reportedl y, this showed that her OS vision was worse - no reports available to me at this time. Was a lso admitted to the [facility] for CAPONE about a month ago. Reportedly [...] Patient was also given a prescription for [place] for CAPONE until she establishs care with [...]
--- OUTSIDE RECORDS SUMMARY | ~2019-11-02 | XMS | Encounter Summary ---
Demographics + + + | Address | [address] | | | [place] [address] | + + + | Home Phone [...] Organization | [facility] | | | and [...] Team Providers + +------+ + | Care Radar Repairer Name | Role | Phone | [...] | | | [place] | [address] | | | | | [address] | [phone] | | | | | [phone] | | | +--------+ + + + [...]
--- OUTSIDE RECORDS SUMMARY | ~2019-11-02 | XMS | Encounter Summary ---
Demographics + + + | Address | [address] | | | [place] [address] | + + + | Home Phone [...] | Organization | [facility] [...] Team Providers + +------+ + | Care Catering Sales Manager Name | Role | Phone | + +------+ + PCP | Unavailable | + +------+ + Encounter Details +--------+ + + + + | Date | Type | Department | Care Team | Description | +--------+ + + + + | 05/21/ | Hospital | [facility] | | | | 1991 | Encounter | [facility] | | | | | | HEALTH [address] | | | | | | [place], | | | | | | [place] [address] | | | | | | [phone] | | | +--------+ + + + [...]
--- OUTSIDE RECORDS SUMMARY | ~2019-11-02 | XMS | Encounter Summary ---
Demographics + + + | Address | [address] | | | [place] [address] | + + + | Home Phone [...] + + + | Author | [place] [employer] [facility] | + + + | Organization | [facility] [employer] [facility] | + [...] Providers + +------+ + | Care Adjunct Professor Of English Name | Role | Phone | + [...] Care Coordination | | 2018 | | [place] | [address] | | | | | Neuro-Ophthalmology | [facility] [place] | | | | | at [facility] [address] | [address] | | | | | Ave Mailcode: CH3G | [phone] | | | | | [facility] | | | | | | and Healing, | | | | | | Building | | | | | | Floor [place], [place] | | | | | | [address] | | | | | | [phone] | | | +--------+ + + + [...]
--- OUTSIDE RECORDS SUMMARY | ~2019-11-02 | XMS | Encounter Summary ---
Demographics + + + | Address | [address] | | | [place] [address] | + + + | Home Phone [...] Organization | [facility] | [...] Providers + +------+ + | Care Rn Telephonic Name | Role | Phone | + +------+ + PCP | Unavailable | + +------+ + Encounter Details +--------+ + + + + | Date | Type | Department | Care Team | Description | +--------+ + + + + | 08/01/ | Hospital | [facility] | | | | 1991 | Encounter | [facility] | | | | | | HEALTH SV [address] | | | | | | [place], | | | | | | [place] [address] | | | | | | [phone] | | | +--------+ + + + [...]
--- OUTSIDE RECORDS SUMMARY | ~2019-11-02 | XMS | Encounter Summary ---
Demographics + + + | Address | [address] | | | [place] [address] | + + + | Home Phone | | + + + | Preferred Language | Unknown | + + + | Marital Status | | + + + | Advent Affiliation | Unknown | + + + | Race | Unknown | + + + | Ethnic Group | Unknown | + + + Author + + + | Author | [facility] | | | and [place] | + + + | Organization | [facility] [...] Team Providers + +------+ + | Care Freight Claim Investigator Name | Role | Phone | + +------+ + PCP | Unavailable | + +------+ + Encounter Details +--------+ + + + + | Date | Type | Department | Care Team | Description | +--------+ + + + + | 09/03/ | Hospital | [facility] | | | | 1991 | Encounter | [facility] | | | | | | HEALTH SV [address] | | | | | | [place], | | | | | | [place] [address] | | | | | | [phone] | | | +--------+ + + + [...]
--- OUTSIDE RECORDS SUMMARY | ~2019-11-02 | XMS | Encounter Summary ---
Demographics + + + | Address | [address] | | | [place] [address] | + + + | Home Phone [...] | Located [facility] | | | and [place] [...] Providers + +------+ + | Care Hand Striper Name | Role | Phone | + +------+ + PCP | Unavailable | + +------+ + Encounter Details +--------+ + + + + | Date | Type | Department | Care Team | Description | +--------+ + + + + | 10/02/ | Hospital | [facility] | | | | 1991 | Encounter | [facility] | | | | | | HEALTH SV [address] | | | | | | [place], | | | | | | [place] [address] | | | | | | [phone] | | | +--------+ + + + [...]
--- OUTSIDE RECORDS SUMMARY | ~2019-11-02 | XMS | Encounter Summary ---
Demographics + + + | Address | [address] | | | [place] [address] | + + + | Home Phone | | + + + | Preferred Language | Unknown | + + + | Marital Status | | + + + | Uatsdin Affiliation | Unknown | + + + | Race | Unknown | + + + | Ethnic Group | Unknown | + + + Author + + + | Author | [facility] | | | and [place] | + + + | Organization | [facility] | | | and [...] Team Providers + +------+ + | Care Anthropology Lecturer Name | Role | Phone | + +------+ + PCP | Unavailable | + +------+ + Encounter Details +--------+ + + + + | Date | Type | Department | Care Team | Description | +--------+ + + + + | 05/28/ | Hospital | [facility] | | | | 1991 | Encounter | MED CTR EMERGENCY | | | | | | CENTER [address] | | | | | | [place] | | | | | | [address] | | | | | | [phone] | | | +--------+ + + + [...]
--- OUTSIDE RECORDS SUMMARY | ~2019-11-02 | XMS | Encounter Summary ---
Demographics + + + | Address | [address] | | | [place] [address] | + + + | Home Phone [...] + + + | Author | [place] [employer] [facility] | + + + | Organization | [facility] [employer] [facility] | + + + | Address | Unknown | + + + | Phone | Unavailable | + + + Support + + +---------+ + | Name | Relationship | Address | Phone | + + +---------+ + | Ruby Au | ECON | Unknown | | + + +---------+ + Care Team Providers + +------+ + | Care Lime Sludge Kiln Operator Name | Role | Phone | [...] Cerebri; | | 2006 | Visit | [place]/Ophthalmol | | Papilledema | | | | ogy at [facility] [address] | | Associated with | | | | [address] Mailcode: | | Increased | | | | CH11P Center for | | Intracranial | | | | Health and Healing, | | Pressure; Transient | | | | Building | | Visual Loss | | | | Floor [place], [place] | | | | | | [address] | | | | | | [phone] | | | +--------+---------+ + + + [...] HPI: 31 y.o. year old female from [place] : Patient presents with: Transient visual loss [...] seconds; these occur 2-3 x per w [place]. Hobbies: Tobacco use: reports that she has [...] patient to continue follow-up for psuedotumor w [facility] neuro-ophth. Follow up at [facility] prn new symptoms or complaints. WADE Jensen [...]
--- OUTSIDE RECORDS SUMMARY | ~2019-11-02 | XMS | Encounter Summary ---
Demographics + + + | Address | [address] | | | [place] [address] | + + + | Home Phone [...] + + + | Author | [place] [employer] [facility] | + + + | Organization | [facility] [employer] [facility] [...] Team Providers + +------+ + | Care Service Desk Analyst Name | Role | Phone | [...] Cerebri | | 2006 | Visit | [place] | | (Primary Dx) | | | | Neuro-Ophthalmology | | | | | | [address] | | | | | | [place] Mailcode: CEI | | | | | | Mailcode: CEI | | | | | | [place], [place] | | | | | | [address] | | | | | | [phone] | | | +--------+---------+ + + + [...] of this encounter Progress Notes Sergio Zhu M - 03/27/2007 11:07 AM PDTFormatting of this note might be differen t from the original. Neuro-Ophthalmology Return Patient Evaluation 03/27/2007 Referred by: CASIMIRO PAYTON MD [address] [place] [address] Per [facility] chart note taken this morning by . Symptoms: Patient specific problem noted by patient: transient visual loss HPI: 31 y.o. 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 : negative Musculoskeletal: negative [...] of Diamox bid for now. She r jelanilly does not want to increase her dose and I think that this is fine given that her disc e sushant is very mild and her visual function. I am going to see her back in 2 months time. Brad Currie MD Neuro-Ophthalmology and Cerebrovascular Disease Busser of Ophthalmology, Neurology, and Neurosurgery documented in this encounter Plan of Treatment + + +--------+ + + | Name | Type | Priori | Associated Diagnoses | Order Schedule | | | | ty | | | + + +--------+ + + | [place] VISUAL FIELD | Procedures | Routin | Pseudotumor | Ordered: 03/27/2007 | | EXAM,EXTENDED | | e | Cerebri | | + + +--------+ + + documented as of this encounter Visit Diagnoses + + | Diagnosis | + + | Pseudotumor cerebri - Primary Benign intracranial hypertension | + + documented in this encounter
--- OUTSIDE RECORDS SUMMARY | ~2019-11-02 | XMS | Encounter Summary ---
Demographics + + + | Address | [address] | | | [place] [address] | + + + | Home Phone [...] + + | Author | [place] [employer] [facility] | + + + | Organization | [facility] [employer] [facility] | + + + | Address | Unknown | + + + | Phone | Unavailable | + + + Support + + +---------+ + | Name | Relationship | Address | Phone | + + +---------+ + | Ruby Au | ECON | Unknown | | + + +---------+ + Care Team Providers + +------+ + | Care Sulky Driver Name | Role | Phone | [...] | | | Ave Mailcode: CH8N | [place], [place] | | | | | [facility] | [address] | | | | | and Healing, | [phone] | | | | | [facility] | | | | | | Floor [place], [place] | | | | | | [address] | | | | | | [phone] | | | +--------+ + + + [...]
--- OUTSIDE RECORDS SUMMARY | ~2019-11-02 | XMS | Encounter Summary ---
Demographics + + + | Address | [address] | | | [place] [address] | + + + | Home Phone [...] | Organization | [facility] | [...] + +------+ + | Care Forest Fire Fighters Dispatcher Name | Role | Phone | + +------+ + PCP | Unavailable | + +------+ + Encounter Details +--------+ + + + + | Date | Type | Department | Care Team | Description | +--------+ + + + + | 10/21/ | Hospital | [facility] | | | | 1991 | Encounter | MED CTR WOMENS | | | | | | HEALTH SV [address] | | | | | | [place], | | | | | | [place] [address] | | | | | | [phone] | | | +--------+ + + + [...]
--- OUTSIDE RECORDS SUMMARY | ~2019-11-02 | XMS | Encounter Summary ---
Demographics + + + | Address | [address] | | | [place] [address] | + + + | Home Phone [...] | [facility] | | [...] Team Providers + +------+ + | Care Shoe Repairer Helper Name | Role | Phone | + +------+ + PCP | Unavailable | + +------+ + Encounter Details +--------+ + + + + | Date | Type | Department | Care Team | Description | +--------+ + + + + | 06/19/ | Hospital | [facility] | | | | 1991 | Encounter | MED CTR WOMENS | | | | | | HEALTH SV [address] | | | | | | [place], | | | | | | [place] [address] | | | | | | [phone] | | | +--------+ + + + [...]
--- OUTSIDE RECORDS SUMMARY | ~2019-11-02 | XMS | Clinical Summary ---
Demographics + + + | Address | [address] | | | [place] [address] | + + + | Home Phone [...] Providers + +------+ + | Care Supervisor Grower Name | Role | Phone | + +------+ + | Dennis Maddox | PCP | | + +------+ + Source Comments REBECA is fully live on both [facility] Ambulatory and [facility] InPatient.[facility] Allergies + + + + [...] | | | + +--------+ +--------+-------+---------+--------+ | FIELD MARKETING REPRESENTATIVE MEDICAID | FIELD MARKETING REPRESENTATIVE | [id number] | 11/28/19 | | | [...] | 1975 | [phone] | [place] [address] | | | rene | | | 0 (Home) | | + +--------+ +--------+ + + Advance Directives + + + + + | Type | Date Recorded | Patient | Explanation | | | | Cavalry Officer | | + + + + + | Advance | | | | | Directives and | | | | | Living Will | | | | + + + + + | Power of | | | | | Logistics Operations Director | | | | + + + [...]
--- OUTSIDE RECORDS SUMMARY | ~2019-11-02 | XMS | Encounter Summary ---
Demographics + + + | Address | [address] | | | [place] [address] | + + + | Home Phone [...] + + + | Author | [place] [employer] [facility] | + + + | Organization | [facility] [employer] [facility] | + [...] Team Providers + +------+ + | Care Talking Books Library Clerk Name | Role | Phone | + +------+ + PCP | Unavailable | + +------+ + Encounter Details +--------+ + + + + | Date | Type | Department | Care Team | Description | +--------+ + + + + | 05/27/ | Results | Neurosurgery 3181 | [address] | | | 2005 | Only | [address] | Jt Yung | | | | | [place] Mailcode:OP14B | [place], | | | | | [place] [employer] | [place] [address] | | | | | [place], [place] | | | | | | [address] | | | | | | [phone] | | | +--------+ + + + [...]
--- OUTSIDE RECORDS SUMMARY | ~2019-11-02 | XMS | Encounter Summary ---
Demographics + + + | Address | [address] | | | [place] [address] | + + + | Home Phone [...] + + + | Author | [place] [employer] [facility] | + + + | Organization | [facility] [employer] [facility] | + + + | Address | Unknown | + + + | Phone | Unavailable | + + + Support + + +---------+ + | Name | Relationship | Address | Phone | + + +---------+ + | Ruby Au | ECON | Unknown | | + + +---------+ + Care Team Providers + +------+ + | Care Crawler Tractor Operator Name | Role | Phone [...] Letter From | | 2007 | | [address] | [address] | Specialist | | | | Ave Mailcode: CH8N | [place], [place] | | | | | [facility] | [address] | | | | | and Healing, | [phone] | | | | | [facility] | | | | | | Floor [place], [place] | | | | | | [address] | | | | | | [phone] | | | +--------+ + + + [...]
--- OUTSIDE RECORDS SUMMARY | ~2019-11-02 | XMS | Encounter Summary ---
Demographics + + + | Address | [address] | | | [place] [address] | + + + | Home Phone [...] + + + | Author | [place] [employer] [facility] | + + + | Organization | [facility] [employer] Science [facility] [...] Team Providers + +------+ + | Care Sonar Subsystem Equipment Operator Name | Role | Phone | [...] | | [place] Mailcode:OP14B | [place], | | | | | [facility] | [place] [address] | | | | | [place], [place] | | | | | | [address] | | | | | | [phone] | | | +--------+ + + + [...]
--- OUTSIDE RECORDS SUMMARY | ~2019-11-02 | XMS | Encounter Summary ---
Demographics + + + | Address | [address] | | | [place] [address] | + + + | Home Phone [...] + + + | Author | [place] [employer] [facility] | + + + | Organization | [facility] [employer] | + + + | Address | Unknown | + + + | Phone | Unavailable | + + + Support + + +---------+ + | Name | Relationship | Address | Phone | + + +---------+ + | Ruby Au | ECON | Unknown | | + + +---------+ + Care Team Providers + +------+ + | Care Fish Liver Sorter Name | Role | Phone | + +------+ + | Brenden Benavides MD | PCP | | + +------+ + Encounter Details +--------+ + + + + | Date | Type | Department | Care Team | Description | +--------+ + + + + | 02/21/ | Telephone | [facility] | [address] | | | 2006 | | [place] | [address] | | | | | Oculoplastics at | Rd [place], [place] | | | | | Maicol Perez [facility] | [address] | | | | | [address] | | | | | | Mailcode: PATTI | | | | | | [place], [place] | | | | | | [address] | | | | | | [phone] | | | +--------+ + + + [...]
--- OUTSIDE RECORDS SUMMARY | ~2019-11-02 | XMS | Encounter Summary ---
Demographics + + + | Address | [address] | | | [place] [address] | + + + | Home Phone | | + + + | Preferred Language | Unknown | + + + | Marital Status | | + + + | Orthodox Affiliation | Unknown | + + + | Race | Unknown | + + + | Ethnic Group | Unknown | + + + Author + + + | Author | [facility] | | | and [place] | + + + | Organization | [facility] | | | [...] Team Providers + +------+ + | Care Office Rn Name | Role | Phone | + +------+ + PCP | Unavailable | + +------+ + Encounter Details +--------+ + + + + | Date | Type | Department | Care Team | Description | +--------+ + + + + | 05/25/ | Hospital | [facility] | | | | 1991 | Encounter | MED CTR WOMENS | | | | | | HEALTH SV [address] | | | | | | [place], | | | | | | [place] [address] | | | | | | [phone] | | | +--------+ + + + [...]
--- OUTSIDE RECORDS SUMMARY | ~2019-11-02 | XMS | Encounter Summary ---
Demographics + + + | Address | [address] | | | [place] [address] | + + + | Home Phone [...] + + | Author | [place] [employer] [facility] | + + + | Organization | [facility] [email or web address] [facility] | + [...] Team Providers + +------+ + | Care Draw Operator Name | Role | Phone | + +------+ + | Pedro Luis Sams MD | PCP | | + +------+ + Encounter Details +--------+ + + + + | Date | Type | Department | Care Team | Description | +--------+ + + + + | 10/19/ | Telephone | [facility] | Funmilayo Osorio MD | | | 2010 | | [place]/Ophthalmol | [address] | | | | | leon at [facility] [address] | [place], [place] | | | | | [address] Mailcode: | [address] | | | | | CH11P [facility] | [phone] | | | | | Health and Healing, | | | | | | [facility] | | | | | | [place], [place] | | | | | | [address] | | | | | | [phone] | | | +--------+ + + + [...]
--- OUTSIDE RECORDS SUMMARY | ~2019-11-02 | XMS | Encounter Summary ---
Demographics + + + | Address | [address] | | | [place] [address] | + + + | Home Phone [...] + + + | Author | [place] [employer] [facility] | + + + | Organization | [facility] [employer] [facility] | + [...] Team Providers + +------+ + | Care Investor Relations Specialist Name | Role | Phone | [...] | | | Ave Mailcode: CH8N | [place], [place] | | | | | [facility] | [address] | | | | | and Healing, | [phone] | | | | | [facility] | | | | | | Floor [place], [place] | | | | | | [address] | | | | | | [phone] | | | +--------+ + + + [...]
--- OUTSIDE RECORDS SUMMARY | ~2019-11-02 | XMS | Encounter Summary ---
Demographics + + + | Address | [address] | | | [place] [address] | + + + | Home Phone [...] Team Providers + +------+ + | Care Aerial Sprayer Name | Role | Phone | + +------+ + PCP | Unavailable | + +------+ + Encounter Details +--------+ + + + + | Date | Type | Department | Care Team | Description | +--------+ + + + + | 04/18/ | Hospital | [facility] | | | | 1991 | Encounter | MED CTR EMERGENCY | | | | | | CENTER [address] | | | | | | [place] | | | | | | [address] | | | | | | [phone] | | | +--------+ + + + [...]
--- OUTSIDE RECORDS SUMMARY | ~2019-11-02 | XMS | Clinical Summary ---
Demographics + + + | Address | [address] | | | [place] [address] | + + + | Home Phone | | + + + | Preferred Language | Unknown | + + + | Marital Status | | + + + | Druze Affiliation | Unknown | + + + | Race | Unknown | + + + | Ethnic Group | Unknown | + + + Author + + + | Author | [facility] | | | and [place] | + + + | Organization | [facility] | | | and [place] [...] Providers + +------+ + | Care Certified Health Education Specialist Name | Role | Phone | [...] A1c | | 05/27/2017 | | | Screening | 7 | | | + + + + + | Statin Therapy | | | | | (optimal intensity) | 8 | | | + + + + + | Vaccine: Influenza | | 08/26/2015, 11/03/2011, | | | (#1) | 9 | 09/22/2010 | | + + + + + | Vaccine: | | 03/25/2014 | | | Dtap/Tdap/Td (2 - | 4 | | | | Td) | | | [...] +---------+--------+ | MEDICAID [place] | MEDICA | [id number] | 11/09/ | [phone] | | Medica | | | ID [place] | | 2018-P | 2 | | id | | | PLUS | | resent | | | | + +--------+ +--------+ +---------+--------+ | [facility] | IHS | [id number] | 11/08/ | | | Indemn | [...] +--------+ +--------+ + + | Annabella Au Jt | Person | Self | [birth year] | [address] | | | al/Fam | | 1975 | [phone] | [place] [address] | | | rene | | | 5 (Home) | | + +--------+ +--------+ + + Advance Directives + + + + + | Type | Date Recorded | Patient | Explanation | | | | Airfield Manager | | + + + + + | Power of | | | | | Group Sales Representative | | | | + + + + + | Advance | | | | | Directive | | | | + + + + +
--- OUTSIDE RECORDS SUMMARY | ~2019-11-02 | XMS | Encounter Summary ---
Demographics + + + | Address | [address] | | | [place] [address] | + + + | Home Phone [...] + + + | Author | [place] [employer] [facility] | + + + | Organization | [facility] [employer] [facility] | + + + | Address | Unknown | + + + | Phone | Unavailable | + + + Support + + +---------+ + | Name | Relationship | Address | Phone | + + +---------+ + | Ruby Au | ECON | Unknown | | + + +---------+ + Care Team Providers + +------+ + | Care Wastewater Treatment Plant Instructor Name | Role | Phone | [...] Refill Request | | 2007 | | [facility] [address] | [place] JOSE | | | | | [place] Mailcode: CH8N | Neurosurgery 3303 | | | | | [facility] | [address] | | | | | and Healing, | [place], [place] | | | | | Building | [address] | | | | | Floor [place], [place] | | | | | | [address] | | | | | | [phone] | | | +--------+--------+ + + + [...]
--- OUTSIDE RECORDS SUMMARY | ~2019-11-02 | XMS | Encounter Summary ---
Demographics + + + | Address | [address] | | | [place] [address] | + + + | Home Phone [...] Organization | [facility] [...] Team Providers + +------+ + | Care Solid Waste Landfill Technician Name | Role | Phone | + +------+ + PCP | Unavailable | + +------+ + Encounter Details +--------+ + + + + | Date | Type | Department | Care Team | Description | +--------+ + + + + | 03/29/ | Hospital | [facility] | | | | 2006 | Encounter | MED CTR XRAY [address] | | | | | | [address] | | | | | | [place] [address] | | | | | | [phone] | | | +--------+ + + + [...]
--- OUTSIDE RECORDS SUMMARY | ~2019-11-02 | XMS | Encounter Summary ---
Demographics + + + | Address | [address] | | | [place] [address] | + + + | Home Phone [...] | Organization | [facility] | [...] Providers + +------+ + | Care Supervisor Marble Name | Role | Phone | + +------+ + PCP | Unavailable | + +------+ + Encounter Details +--------+ + + + + | Date | Type | Department | Care Team | Description | +--------+ + + + + | 09/27/ | Hospital | [facility] | | | | 1991 | Encounter | MED CTR W[facility]ENS | | | | | | HEALTH SV [address] | | | | | | [place], | | | | | | [place] [address] | | | | | | [phone] | | | +--------+ + + + [...]
--- OUTSIDE RECORDS SUMMARY | ~2019-11-02 | XMS | Encounter Summary ---
Demographics + + + | Address | [address] | | | [place] [address] | + + + | Home Phone [...] + + + | Author | [place] [employer] [facility] | + + + | Organization | [facility] [employer] [facility] | + + + | Address | Unknown | + + + | Phone | Unavailable | + + + Support + + +---------+ + | Name | Relationship | Address | Phone | + + +---------+ + | Ruby Au | ECON | Unknown | | + + +---------+ + Care Team Providers + +------+ + | Care Technical Associate Name | Role | Phone | + +------+ + | Brenden Benavides MD | PCP | | + +------+ + Encounter Details +--------+ + + + + | Date | Type | Department | Care Team | Description | +--------+ + + + + | 02/23/ | Telephone | [facility] | Brad Currie MD | | | 2006 | | [place] | | | | | | Neuro-Ophthalmology | | | | | | [address] | | | | | | [place] Mailcode: CEI | | | | | | Mailcode: CEI | | | | | | [place], [place] | | | | | | [address] | | | | | | [phone] | | | +--------+ + + + [...]
--- OUTSIDE RECORDS SUMMARY | ~2019-11-02 | XMS | Encounter Summary ---
Demographics + + + | Address | [address] | | | [place] [address] | + + + | Home Phone [...] Organization | [facility] [...] Providers + +------+ + | Care Motor Vehicle Representative Name | Role | Phone | + +------+ + PCP | Unavailable | + +------+ + Encounter Details +--------+ + + + + | Date | Type | Department | Care Team | Description | +--------+ + + + + | 10/18/ | Hospital | [facility] | | | | 1991 | Encounter | MED CTR WOMENS | | | | | | HEALTH SV [address] | | | | | | [place], | | | | | | [place] [address] | | | | | | [phone] | | | +--------+ + + + [...]
--- OUTSIDE RECORDS SUMMARY | ~2019-11-02 | XMS | Encounter Summary ---
Demographics + + + | Address | [address] | | | [place] [address] | + + + | Home Phone [...] + + + | Author | [place] [employer] [facility] | + + + | Organization | [facility] [employer] [facility] [...] Providers + +------+ + | Care Dental Biller Name | Role | Phone | + [...] + + | 08/24/ | Emergency | [facility] Emergency | Tylor Mcclellan, | | | 2010 | | Department [address] | [address] | | | | | [address] | [place], [address] | | | | | [facility] | [facility] [place] | | | | | [place], [place] | [place], [place] | | | | | [address] | [address] | | | | | [phone] | [phone] | | | | | | | [...] us take care of you at [facility] today. Follow up with primary care [...] | | + +---------+ + + | [facility] DEPARTMENT OF | | | [...]
--- OUTSIDE RECORDS SUMMARY | ~2019-11-02 | XMS | Encounter Summary ---
Demographics + + + | Address | [address] | | | [place] [address] | + + + | Home Phone [...] | [facility] [...] Providers + +------+ + | Care Senior Sustainability Consultant Name | Role | Phone | + +------+ + PCP | Unavailable | + +------+ + Encounter Details +--------+ + + + + | Date | Type | Department | Care Team | Description | +--------+ + + + + | 10/25/ | Hospital | [facility] | | | | 1991 | Encounter | MED CTR EMERGENCY | | | | | | CENTER [address] | | | | | | [place] | | | | | | [address] | | | | | | [phone] | | | +--------+ + + + [...]
--- OUTSIDE RECORDS SUMMARY | ~2019-11-02 | XMS | Encounter Summary ---
Demographics + + + | Address | [address] | | | [place] [address] | + + + | Home Phone [...] + + + | Author | [place] [facility] [employer] [facility] | + + + | Organization | [facility] [employer] [facility] [...] Team Providers + +------+ + | Care Welt Rougher Name | Role | Phone | + [...] | | [place] Mailcode:OP14B | [place], | | | | | [facility] | [place] [address] | | | | | [place], [place] | | | | | | [address] | | | | | | [phone] | | | +--------+ + + + [...]
--- OUTSIDE RECORDS SUMMARY | ~2019-11-02 | XMS | Clinical Summary ---
Demographics + + + | Address | [address] | | | [place] [address] | + + + | Home Phone [...] | [facility] | | | and [...] Providers + +------+ + | Care Manager Market Research Name | Role | Phone | [...] +---------+--------+ | MEDICAID [place] | MEDICA | [id number] | 11/09/ | [phone] | | Medica | | | ID [place] | | 2018-P | 2 | | id | | | PLUS | | resent | | | | + +--------+ +--------+ +---------+--------+ | [facility] | IHS | [id number] | 11/08/ | | | Indemn | [...] | 1975 | [phone] | [place] [address] | | | rene | | | 5 (Home) | | + +--------+ +--------+ + + Advance Directives + + + + + | Type | Date Recorded | Patient | Explanation | | | | Dairy Science Teacher | | + + + + + | Power of | | | | | Furniture Repairer | | | | + + + + + | Advance | | | | | Directive | | | | + + + + +
--- OUTSIDE RECORDS SUMMARY | ~2019-11-02 | XMS | Encounter Summary ---
Demographics + + + | Address | [address] | | | [place] [address] | + + + | Home Phone [...] + + + | Author | [place] [employer] [facility] | + + + | Organization | [facility] [employer] [facility] [...] Team Providers + +------+ + | Care Donkey Ride Operator Name | Role | Phone | [...] | Office | [facility] | Brad Curire MD | Pseudotumor Cerebri | | 2006 | Visit | [place] | | (Primary Dx) | | | | Neuro-Ophthalmology | | | | | | [address] | | | | | | [place] Mailcode: CEI | | | | | | Mailcode: CEI | | | | | | [place], [place] | | | | | | [address] | | | | | | [phone] | | | +--------+---------+ + + + [...] Referred by: CASIMIRO PAYTON MD [address] [place] [address] Symptoms: She has not been taking her [...] Brad Currie MD Neuro-Ophthalmology and Cerebrovascular Disease Shade Matcher of Ophthalmology, Neurology, and Neurosurgery documented in this encounter Plan of Treatment + + +--------+ + + | Name | Type | Priori | Associated Diagnoses | Order Schedule | | | | ty | | | + + +--------+ + + | ID VISUAL FIELD | Procedures | Routin | Pseudotumor | Ordered: 12/19/2006 | | EXAM,EXTENDED | | e | Cerebri | | + + +--------+ + + documented as of this encounter Visit Diagnoses + + | Diagnosis | + + | Pseudotumor cerebri - Primary Benign intracranial hypertension | + + documented in this encounter"
--- OUTSIDE RECORDS SUMMARY | ~2019-11-02 | XMS | Encounter Summary ---
Demographics + + + | Address | [address] | | | [place] [address] | + + + | Home Phone [...] + + + | Author | [place] [employer] [facility] | + + + | Organization | [facility] [employer] Science [facility] [...] Team Providers + +------+ + | Care Bar Assistant Name | Role | Phone | [...] + | 09/06/ | Telephone | Neurosurgery [address] | [address] Carlos Nice, | Other | | 2005 | | [address] [facility] | [address] | | | | | [address] Mailcode:OP14B | [place], [place] | | | | | Ltac, Located [facility] | [address] | | | | | [place], [place] | | | | | | [address] | | | | | | [phone] | | | +--------+ + + + [...]
--- OUTSIDE RECORDS SUMMARY | ~2019-11-02 | XMS | Encounter Summary ---
Demographics + + + | Address | [address] | | | [place] [address] | + + + | Home Phone [...] | Organization | [facility] [...] Team Providers + +------+ + | Care Printed Circuit Boards Router Name | Role | Phone | + +------+ + PCP | Unavailable | + +------+ + Encounter Details +--------+ + + + + | Date | Type | Department | Care Team | Description | +--------+ + + + + | 04/24/ | Hospital | [facility] | | | | 1991 | Encounter | MED CTR EMERGENCY | | | | | | CENTER [address] | | | | | | [place] | | | | | | [address] | | | | | | [phone] | | | +--------+ + + + [...]
--- OUTSIDE RECORDS SUMMARY | ~2019-11-02 | XMS | Encounter Summary ---
Demographics + + + | Address | [address] | | | [place] [address] | + + + | Home Phone [...] Organization | [facility] [...] Team Providers + +------+ + | Care Scraper Burrer Name | Role | Phone | + +------+ + PCP | Unavailable | + +------+ + Encounter Details +--------+ + + + + | Date | Type | Department | Care Team | Description | +--------+ + + + + | 05/21/ | Hospital | [facility] | | | | 1991 | Encounter | MED CTR WOMENS | | | | | | HEALTH SV [address] | | | | | | [place], | | | | | | [place] [address] | | | | | | [phone] | | | +--------+ + + + [...]
--- OUTSIDE RECORDS SUMMARY | ~2019-11-02 | XMS | Encounter Summary ---
Demographics + + + | Address | [address] | | | [place] [address] | + + + | Home Phone [...] | Organization | [facility] | | [...] Providers + +------+ + | Care Mold Filler Plastic Dolls Name | Role | Phone | + +------+ + PCP | Unavailable | + +------+ + Encounter Details +--------+ + + + + | Date | Type | Department | Care Team | Description | +--------+ + + + + | 04/21/ | Hospital | [facility] | | | | 1995 | Encounter | MED CTR EMERGENCY | | | | | | CENTER [address] | | | | | | [place] | | | | | | [address] | | | | | | [phone] | | | +--------+ + + + [...]
--- OUTSIDE RECORDS SUMMARY | ~2019-11-02 | XMS | Encounter Summary ---
Demographics + + + | Address | [address] | | | [place] [address] | + + + | Home Phone | | + + + | Preferred Language | Unknown | + + + | Marital Status | | + + + | Shinto Affiliation | Unknown | + + + | Race | Unknown | + + + | Ethnic Group | Unknown | + + + Author + + + | Author | [facility] | | | and [place] | + + + | Organization | [facility] [...] Providers + +------+ + | Care Flight Control Tower Operator Name | Role | Phone | + +------+ + PCP | Unavailable | + +------+ + Encounter Details +--------+ + + + + | Date | Type | Department | Care Team | Description | +--------+ + + + + | 07/06/ | Hospital | [facility] | Mirna Lambert | | | 2007 | Encounter | MED CTR EMERGENCY | Bri Waters MD [address] | | | | | [address] | [facility] | | | | | [place] | [place] [address] | | | | | [address] | [phone] | | | | | [phone] | | | +--------+ + + + [...]
--- OUTSIDE RECORDS SUMMARY | ~2019-11-02 | XMS | Encounter Summary ---
Demographics + + + | Address | [address] | | | [place] [address] | + + + | Home Phone [...] + + + | Author | [place] [employer] [facility] | + + + | Organization | [facility] [place] Free Class[employer] [facility] | + + + | Address | Unknown | + + + | Phone | Unavailable | + + + Support + + +---------+ + | Name | Relationship | Address | Phone | + + +---------+ + | Ruby Au | ECON | Unknown | | + + +---------+ + Care Team Providers + +------+ + | Care Merchandise Planner Name | Role | Phone | [...] Papilledema | | 2006 | Visit | [place] | [address] | Associated with | | | | Oculoplastics at | [place], [place] | Increased | | | | [place] [address] | [address] | Intracranial | | | | [address] | [phone] | Pressure; Enlarged | | | | Mailcode: CEI | | Blind Spot; | | | | [place], [place] | | Bilateral Headaches | | | | [address] | | | | | | [phone] | | | +--------+---------+ + + + [...] Eye meds: Diamox, Oxycontin, Robaxin. Visual Acuity: [facility] RE 20/20-1 LE 20/25-2 NI Pupil: OS [...]
--- OUTSIDE RECORDS SUMMARY | ~2019-11-02 | XMS | Encounter Summary ---
Demographics + + + | Address | [address] | | | [place] [address] | + + + | Home Phone [...] Organization | [facility] | [...] Team Providers + +------+ + | Care Predator Control Trapper Name | Role | Phone | + +------+ + PCP | Unavailable | + +------+ + Encounter Details +--------+ + + + + | Date | Type | Department | Care Team | Description | +--------+ + + + + | 04/20/ | Hospital | [facility] | | | | 1995 | Encounter | MED CTR EMERGENCY | | | | | | CENTER [address] | | | | | | [place] | | | | | | [address] | | | | | | [phone] | | | +--------+ + + + [...]
--- OUTSIDE RECORDS SUMMARY | ~2019-11-02 | XMS | Encounter Summary ---
Demographics + + + | Address | [address] | | | [place] [address] | + + + | Home Phone [...] + + + | Author | [place] [employer] [facility] | + + + | Organization | [facility] Alter[employer] [facility] | + [...] Team Providers + +------+ + | Care Semiconductor Package Symbol Stamper Name | Role | Phone | + [...] Cerebri | | 2006 | Visit | [place] | [address] | (Primary Dx) | | | | Oculoplastics at | [place], [place] | | | | | [place] [address] | [address] | | | | | [address] | [phone] | | | | | Mailcode: PATTI | | | | | | [place], [place] | | | | | | [address] | | | | | | [phone] | | | +--------+---------+ + + + [...]
--- OUTSIDE RECORDS SUMMARY | ~2019-11-02 | XMS | Encounter Summary ---
Demographics + + + | Address | [address] | | | [place] [address] | + + + | Home Phone [...] + + + | Author | [place] agnion [employer] [facility] | + + + | Organization | [facility] | + [...] Providers + +------+ + | Care Interactive Media Marketing Director Name | Role | Phone | [...] Cerebri; | | 2006 | Visit | [place] | [address] | Pain in or Around | | | | Oculoplastics at | [place], [place] | Eye | | | | [place] [address] | [address] | | | | | [address] | [phone] | | | | | Mailcode: CESimon | | | | | | [place], [place] | | | | | | [address] | | | | | | [phone] | | | +--------+---------+ + + + [...] documented as of this encounter Progress Notes SaulHay - 02/20/2007 1:30 PM PDTFormatting of this [...] to be seen here or by an jewelry sales in [facility], but she says she does not have transportation. I will call in Vicodin #20, pt to call i mmediately if there is any worsening. Pt states lucho lump in left zoroastrianism is gone. No pain. Pt. Had cough [...]
--- OUTSIDE RECORDS SUMMARY | ~2019-11-02 | XMS | Encounter Summary ---
Demographics + + + | Address | [address] | | | [place] [address] | + + + | Home Phone [...] + + | Author | [place] [employer] [facility] | + + + | Organization | [facility] Constant Therapy [facility] | + [...] Providers + +------+ + | Care Marketing Sales Manager Name | Role | Phone [...] | Headache | | 2005 | | [place]/Ophthalmol | MD Jordin | | | | | leon at [facility] [address] | | | | | | [address] Mailcode: | | | | | | CH11P [facility] | | | | | | Health and Healing, | | | | | | Building | | | | | | Floor [place], [place] | | | | | | [address] | | | | | | [phone] | | | +--------+ + + + [...]
--- OUTSIDE RECORDS SUMMARY | ~2019-11-02 | XMS | Encounter Summary ---
Demographics + + + | Address | [address] | | | [place] [address] | + + + | Home Phone [...] + + + | Author | [place] [employer] [facility] | + + + | Organization | [facility] [employer] [facility] | + + + | [...] | | | Ave Mailcode: CH8N | [place], [place] | | | | | [facility] | [address] | | | | | and Healing, | [phone] | | | | | [facility] | | | | | | Floor [place], [place] | | | | | | [address] | | | | | | [phone] | | | +--------+ + + + [...]
--- OUTSIDE RECORDS SUMMARY | ~2019-11-02 | XMS | Clinical Summary ---
Demographics + + + | Address | [address] | | | [place] [address] | + + + | Home Phone | | + + + | Preferred Language | Unknown | + + + | Marital Status | | + + + | Scientologist Affiliation | Unknown | + + + | Race | Unknown | + + + | Ethnic Group | Unknown | + + + Author + + + | Author | [employer] (Historical as of | | | 07-14-19) | + + + | Organization | [facility] [employer] (Historical as of | | | 07-14-19) [...] +------+-------+ + | MEDICAID | MEDICA | [id number] | | | [address] | | | [place] | | | | [place], [place] | | | [place] | | | | [address] | + +--------+ +------+-------+ + | [facility] | YELLOW | [id number] | | | | | PLANS | [...] | | sameera/Jean-Claude | | 1974 | [phone] | [place] | | | rene | | | [address] | [address] | + +--------+ +--------+ + +
--- OUTSIDE RECORDS SUMMARY | ~2019-11-02 | XMS | Encounter Summary ---
Demographics + + + | Address | [address] | | | [place] [address] | + + + | Home Phone [...] + + + | Author | [place] [employer] [facility] | + + + | Organization | [facility] | + + + | Address | Unknown | + + + | Phone | Unavailable | + + + Support + + +---------+ + | Name | Relationship | Address | Phone | + + +---------+ + | Ruby Au | ECON | Unknown | | + + +---------+ + Care Team Providers + +------+ + | Care Educational Institution President Name | Role | Phone | + [...] Cerebri | | 2007 | Visit | [facility] [address] | FLORA JOSE | (Primary Dx) | | | | Ave Mailcode: CH8N | Neurosurgery [address] | | | | | [facility] | [address] | | | | | and Healing, | [place], [place] | | | | | Building | [address] | | | | | Floor [place], [place] | | | | | | [address] | | | | | | [phone] | | | +--------+---------+ + + + [...]
--- OUTSIDE RECORDS SUMMARY | ~2019-11-02 | XMS | Encounter Summary ---
Demographics + + + | Address | [address] | | | [place] [address] | + + + | Home Phone [...] + + + | Author | [place] [employer]OZI [facility] | + + + | Organization | [facility] Merchant [employer] [facility] | + + + | Address | Unknown | + + + | Phone | Unavailable | + + + Support + + +---------+ + | Name | Relationship | Address | Phone | + + +---------+ + | Ruby Au | ECON | Unknown | | + + +---------+ + Care Team Providers + +------+ + | Care Lifter/Driver Name | Role | Phone | + [...] [address] | | | | | [place] | [place], [place] | | | | | [place], [place] | [address] | | | | | [address] | [phone] | | | | | [phone] | | | +--------+ + + + [...]
--- OUTSIDE RECORDS SUMMARY | ~2019-11-02 | XMS | Encounter Summary ---
Demographics + + + | Address | [address] | | | [place] [address] | + + + | Home Phone [...] + + + | Author | [place] [employer] [facility] | + + + | Organization | Pending [facility] [facility] [...] Team Providers + +------+ + | Care Steel Tester Name | Role | Phone | [...] | | | | Epic Dept | [address] | | | | | | | [address] | | | | | | | [address] | | [address] | | | | | | | Mailcode: CEI | | | | | | | [place], | | | | | | | [place] [address] | | | | | | | Phone: | | | | | | | [phone] | | | | | | | Fax: | | | | | | | [phone] | +--------+--------+ + + + + Encounter Details +--------+ + + + + | Date | Type | Department | Care Team | Description | +--------+ + + + + | 03/26/ | Procedure | [facility] | | Visual field testing | | 2012 | | [place] [facility] | | | | | | Lopez at [facility] [address] | | | | | | [address] | | | | | | Mailcode: CH11P | | | | | | [facility] | | | | | | and [place], | | | | | | | | | | | | [place], [place] | | | | | | [address] | | | | | | [phone] | | | +--------+ + + + [...] PDT Annabella Au was seen in the [facility] [place] [facility] [place] Department today, 2012, for 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 documented in this encounter Plan of Treatment Not on filedocumented as of this encounter Procedures + +--------+ + + + | Procedure Name | Priori | Date/Time | Associated Diagnosis | Comments | | | ty | | | | + +--------+ + + + | [place] VISUAL FIELD | Routin | 03/26/2013 | [...]
--- OUTSIDE RECORDS SUMMARY | ~2019-11-02 | XMS | Encounter Summary ---
Demographics + + + | Address | [address] | | | [place] [address] | + + + | Home Phone [...] | Organization | [facility] | [...] Team Providers + +------+ + | Care Folder Seamer Name | Role | Phone | + +------+ + PCP | Unavailable | + +------+ + Encounter Details +--------+ + + + + | Date | Type | Department | Care Team | Description | +--------+ + + + + | 04/24/ | Hospital | [facility] | | | | 2004 | Encounter | MED CTR EMERGENCY | | | | | | CENTER [address] | | | | | | [place] | | | | | | [address] | | | | | | [phone] | | | +--------+ + + + [...]
--- OUTSIDE RECORDS SUMMARY | ~2019-11-02 | XMS | Encounter Summary ---
Demographics + + + | Address | [address] | | | [place] [address] | + + + | Home Phone | | + + + | Preferred Language | Unknown | + + + | Marital Status | | + + + | Yarsani Affiliation | NON | + + + | Race | or | + + + | Ethnic Group | Not or | + + + Author + + + | Author | [place] [employer] [facility] | + + + | Organization | [facility] | + + [...] Providers + +------+ + | Care Food Mixer Assembler Name | Role | Phone | + +------+ + | Brenden Benavides MD | PCP | | + +------+ + Encounter Details +--------+ + + + + | Date | Type | Department | Care Team | Description | +--------+ + + + + | 02/23/ | Telephone | [facility] | Brad Currie MD | | | 2006 | | [place] | | | | | | Neuro-Ophthalmology | | | | | | [address] | | | | | | [place] Mailcode: CEI | | | | | | Mailcode: CEI | | | | | | [place], [place] | | | | | | [address] | | | | | | [phone] | | | +--------+ + + + [...]
--- OUTSIDE RECORDS SUMMARY | ~2019-11-02 | XMS | Encounter Summary ---
Demographics + + + | Address | [address] | | | [place] [address] | + + + | Home Phone [...] + + | Organization | [facility] | | [...] Team Providers + +------+ + | Care Lasting Machine Operator Hand Method Name | Role | Phone | + +------+ + PCP | Unavailable | + +------+ + Encounter Details +--------+ + + + + | Date | Type | Department | Care Team | Description | +--------+ + + + + | 10/12/ | Hospital | [facility] | | | | 1991 | Encounter | MED CTR WOMENS | | | | | | HEALTH [facility] [address] | | | | | | [place], | | | | | | [place] [address] | | | | | | [phone] | | | +--------+ + + + [...]
--- OUTSIDE RECORDS SUMMARY | ~2019-11-02 | XMS | Encounter Summary ---
Demographics + + + | Address | [address] | | | [place] [address] | + + + | Home Phone [...] + + + | Author | [place] [employer] [facility] | + + + | Organization | [facility] [employer] [facility] | + [...] Providers + +------+ + | Care Machine Setup Operator Name | Role | [...] Cerebri | | 2006 | Visit | [place] | | (Primary Dx) | | | | Neuro-Ophthalmology | | | | | | [address] | | | | | | [place] Mailcode: CEI | | | | | | Mailcode: CEI | | | | | | [place], [place] | | | | | | [address] | | | | | | [phone] | | | +--------+---------+ + + + [...] Referred by: CASIMIRO PAYTON MD [address] [place] [address] Symptoms: Patient feels things are better. Vision [...] Brad Currie MD Neuro-Ophthalmology and Cerebrovascular Disease Tractor Operator Laser Leveling of Ophthalmology, Neurology, and Neurosurgery documented in this encounter Plan of Treatment + + +--------+ + + | Name | Type | Priori | Associated Diagnoses | Order Schedule | | | | ty | | | + + +--------+ + + | [place] VISUAL FIELD | Procedures | Routin | Pseudotumor | Ordered: 01/30/2007 | | EXAM,EXTENDED | | e | Cerebri | | + + +--------+ + + documented as of this encounter Visit Diagnoses + + | Diagnosis | + + | Pseudotumor cerebri - Primary Benign intracranial hypertension | + + documented in this encounter"
--- OUTSIDE RECORDS SUMMARY | ~2019-11-02 | XMS | Encounter Summary ---
Demographics + + + | Address | [address] | | | [place] [address] | + + + | Home Phone [...] + + + | Author | [place] Monkey [employer] [facility] | + + + | Organization | [facility] | + + [...] Providers + +------+ + | Care Business Planner Name | Role | Phone | [...] Request (Pt | | 2006 | | [place] | [address] | requests more pain | | | | Oculoplastics at | [place], [place] | medication) | | | | Maicol Perez [facility] | [address] | | | | | [address] | [phone] | | | | | Mailcode: PATTI | | | | | | [place], [place] | | | | | | [address] | | | | | | [phone] | | | +--------+--------+ + + + [...]
--- OUTSIDE RECORDS SUMMARY | ~2019-11-02 | XMS | Encounter Summary ---
Demographics + + + | Address | [address] | | | [place] [address] | + + + | Home Phone [...] + + + | Author | [place] [employer] [facility] | + + + | Organization | [facility] [facility] | [...] Team Providers + +------+ + | Care Buttermaker Helper Name | Role | Phone | [...] + + | 06/24/ | Emergency | [facility] | | | | 2010 | | Department [address] | | | | | | [address] | | | | | | [facility] | | | | | | [place], [place] | | | | | | [address] | | | | | | [phone] | | | +--------+ + + + [...]
--- OUTSIDE RECORDS SUMMARY | ~2019-11-02 | XMS | Encounter Summary ---
Demographics + + + | Address | [address] | | | [place] [address] | + + + | Home Phone [...] + + + | Author | [place] [employer] [facility] | + + + | Organization | [facility] [employer] [facility] | + [...] Team Providers + +------+ + | Care Artistic Director Name | Role | Phone | [...] | | | Ave Mailcode: CH8N | [place], [place] | Encounters | | | | [facility] | [address] | | | | | and [address], | [phone] | | | | | [facility] | | | | | | Floor [place], [place] | | | | | | [address] | | | | | | [phone] | | | +--------+ + + + [...]
--- OUTSIDE RECORDS SUMMARY | ~2019-11-02 | XMS | Clinical Summary ---
Demographics + + + | Address | [address] | | | [place] [address] | + + + | Home Phone [...] Providers + +------+ + | Care House Piping Inspector Name | Role | Phone | + +------+ + | Dennis Maddox | PCP | | + +------+ + Source Comments [facility] is fully live [facility] Allergies + + + + + [...] | | | + +--------+ +--------+-------+---------+--------+ | SMOKING PIPE COATER MEDICAID | SMOKING PIPE COATER | xxxxxxxx | 11/28/19 | | | [...] | 1975 | [phone] | [place] [address] | | | rene | | | 0 (Home) | | + +--------+ +--------+ + + Advance Directives + + + + + | Type | Date Recorded | Patient | Explanation | | | | Senior Process Engineer | | + + + + + | Advance | | | | | Directives and | | | | | Living Will | | | | + + + + + | Power of | | | | | Library Science Professor | | | | + + + [...]
--- OUTSIDE RECORDS SUMMARY | ~2019-11-02 | XMS | Encounter Summary ---
Demographics + + + | Address | [address] | | | [place] [address] | + + + | Home Phone [...] + + + | Author | [place] [employer] [facility] | + + + | Organization | [facility] - 3P [facility] | + + + | Address | Unknown | + + + | Phone | Unavailable | + + + Support + + +---------+ + | Name | Relationship | Address | Phone | + + +---------+ + | Ruby Au | ECON | Unknown | | + + +---------+ + Care Team Providers + +------+ + | Care Lathe Scalper Operator Name | Role | Phone | [...] | | | | | | | [address] | | | | | | | [address] | | | | | | | [place] | | | | | | | [place], [place] | | | | | | | [address] Phone: | | | | | | | [phone] | +--------+--------+ + + + + Encounter Details +--------+ + + + + | Date | Type | Department | Care Team | Description | +--------+ + + + + | 08/01/ | Hospital | [facility] [address] [address] | Sam Pedroza MD | | | 2007 - | Encounter | [address] | [address] | | | | | [address] [place] | [place], [place] | | | 08/02/ | | [place], | [address] | | | 2007 | | [place] [address] | [phone] | | | | | [phone] | | | +--------+ + + + [...] in 2 weeks, please call for appointment: [phone] Condition On Discharge: Vital Signs at discharge [...] in 2 weeks, please call for appointment: [phone] Condition On Discharge: Vital Signs at discharge [...] Mode of Transportation: Car Accompanied by: Family/Responsible Republican Discharge Nurse: Anni Oliva Date: 08/02/2008 Discharge [...] at this time. Yessenia Nowak, OTR/ L [address] Tomasz Caldera Md - 02/2008 11:08 AM [...] Performed At | + + + | [id number] | | | [id number] | | | [place] [id number] Date: | | | 08/01/2008 Attending Surgeon: | | | Sam Pedroza M.D. Marine Safety Officer(s): | | | Tomasz Rice M.D. | [...] | tonsils and then gently incised. A [place] 4 was then easily fed | | [...] | | | Pooja Pedroza M.D. / [id number] / | | | [id number] / [id number] / | | + + + + + | Procedure Note | + + | Krystal Rushing, Tomasz - 08/01/2008 12:00 AM PDT [id number] | | [id number] [place] | | [id number] Date: 08/01/2008 Attending Surgeon: Sam | | Pooja Pedroza Marine Safety Officer(s): Tomasz Rice M.D. | | Palomo Jansen [...] tonsils and | | thengently incised. A [place] 4 was then easily fed through it, [...] Sam Pedroza M.D. KG / | | [id number] / [id number] / [id number] / T: 08/02/2008 | |dripping from the [...] tonsils and then | |gently incised. A [place] 4 was then easily fed through it, [...] | | | |KG / HS | |[id number] / [id number] / 26860 / | | | | | | | | | | | | | | | | | | | | | + + TEACHING PHYSICIAN (08/01/2008 12:00 AM PDT) + + + | Narrative | Performed At | + + + | [id number] | | | [id number] | | | [place] [id number] | | | Date: 08/01/2008 Attending Surgeon: | | | Sam Pedroza M.D. Marine Safety Officer(s): | | | Tomasz Rice M.D. | [...] | | | Pooja Pedroza / LANETTE [id number] / [id number] / [id number] / [id number] D: | | | 08/01/2008 | | + + + + + | Procedure Note | + + | Sam Pedroza MD - 08/01/2008 12:00 AM PDT [id number] | | [id number] [place] | | [id number] Date: 08/01/2008ttending Surgeon: Sam | | Pooja Pedroza Marine Safety Officer(s): Tomasz Rice M.D. | | Palomo Jansen [...] | Bisi. Sam Pedroza M.D. AD / [id number] / [id number] / [id number] / 27807W: | | 08/01/2008T: 08/01/2008 | | | [...] | | | |AD / HS | |[id number] / [id number] / 54930 / 66506 | | | | | | | [...]
--- OUTSIDE RECORDS SUMMARY | ~2019-11-02 | XMS | Encounter Summary ---
Demographics + + + | Address | [address] | | | [place] [address] | + + + | Home Phone [...] + + + | Author | [place] [employer] [facility] | + + + | Organization | [facility] [...] Team Providers + +------+ + | Care Inter Fold Roll Cutter Name | Role | Phone | + +------+ + | Brenden Benavides MD | PCP | | + +------+ + Encounter Details +--------+ + + + + | Date | Type | Department | Care Team | Description | +--------+ + + + + | 02/23/ | Telephone | [facility] | Brad Currie MD | | | 2006 | | [place] | | | | | | Neuro-Ophthalmology | | | | | | [address] | | | | | | [place] Mailcode: CEI | | | | | | Mailcode: CEI | | | | | | [place], [place] | | | | | | [address] | | | | | | [phone] | | | +--------+ + + + [...]
--- OUTSIDE RECORDS SUMMARY | ~2019-11-02 | XMS | Encounter Summary ---
Demographics + + + | Address | [address] | | | [place] [address] | + + + | Home Phone [...] + + + | Author | [place] [employer] [facility] | + + + | Organization | [facility] [...] Providers + +------+ + | Care Display Fabricator Name | Role | Phone | + +------+ + | Dennis Maddox | PCP | | + +------+ + Encounter Details +--------+ + + + + | Date | Type | Department | Care Team | Description | +--------+ + + + + | 03/15/ | Telephone | [facility] | Ronaldo Martin MD | | | 2012 | | [place]/Ophthalmol | [facility] [place] | | | | | leon at [facility] [address] | [address] [place] [address] | | | | | [address] Mailcode: | [place] [address] | | | | | CH11P [facility] | [phone] | | | | | Health and Healing, | | | | | | | | | | | | [place], [place] | | | | | | [address] | | | | | | [phone] | | | +--------+ + + + [...]
--- OUTSIDE RECORDS SUMMARY | ~2019-11-02 | XMS | Encounter Summary ---
Demographics + + + | Address | [address] | | | [place] [address] | + + + | Home Phone [...] + + + | Author | [place] [employer] [facility] | + + + | Organization | [facility] | + [...] Team Providers + +------+ + | Care Blacktop Spreader Name | Role | Phone | + +------+ + | Brenden Benavides MD | PCP | | + +------+ + Encounter Details +--------+ + + + + | Date | Type | Department | Care Team | Description | +--------+ + + + + | 02/22/ | Telephone | [facility] | Hay Hughes MD [address] | | | 2006 | | [place] | [address] | | | | | Oculoplastics at | [place], [place] | | | | | Maicol Perez [facility] | [address] | | | | | [address] | [phone] | | | | | Mailcode: PATTI | | | | | | [place], [place] | | | | | | [address] | | | | | | [phone] | | | +--------+ + + + [...]
--- OUTSIDE RECORDS SUMMARY | ~2019-11-02 | XMS | Encounter Summary ---
Demographics + + + | Address | [address] | | | [place] [address] | + + + | Home Phone [...] + + + | Author | [place] [employer] [facility] | + + + | Organization | [facility] Ex[employer] [facility] [...] Team Providers + +------+ + | Care Door Cutter Name | Role | Phone | [...] | | | REFERRAL TO | | [place], [place] | | | | | NEUROINTERVE | | [address] | | | | | NTIONAL | | Phone: | | | | | RADIOLOGY | | [phone] | | | | | PRACTICE | | Fax: | | | | | | | [phone] | +--------+--------+ + + + + Reason [...] | | | | Rd Mailcode:OP14B | [place], [place] | | | | | Outpatient Clinic | [address] | | | | | Building [place], | [phone] | | | | | [place] [address] | | | | | | [phone] | | | +--------+---------+ + + + [...] resident s note. CASIMIRO PAYTON MD NEUROSURGERY [facility] [place] [address] Pasc[address] Ballard - 12:00 PM [...] spots" and "tunnel vision." Last saw an oracle applications developer in [facility] 2 months ago. Reportedl y, this showed that her OS vision was worse - no reports available to me at this time. Was a lso admitted to the [facility] for CAPONE about a month ago. [...] Patient was also given a prescription for [facility] for CAPONE until she establishs care with [...]
--- OUTSIDE RECORDS SUMMARY | ~2019-11-02 | XMS | Encounter Summary ---
Demographics + + + | Address | [address] | | | [place] [address] | + + + | Home Phone [...] + + + | Author | [place] [employer] [facility] | + + + | Organization | [facility] [employer] [facility] [...] Team Providers + +------+ + | Care Rate Manager Name | Role | Phone | + +------+ + | Dennis Maddox | PCP | | + +------+ + Encounter Details +--------+ + + + + | Date | Type | Department | Care Team | Description | +--------+ + + + + | 02/28/ | Emergency | [facility] Emergency | | | | 2013 - | | Department [address] | | | | | | [address] | | | | 03/01/ | | [facility] | | | | 2013 | | [place], [place] | | | | | | [address] | | | | | | [phone] | | | +--------+ + + + [...]
--- OUTSIDE RECORDS SUMMARY | ~2019-11-02 | XMS | Encounter Summary ---
Demographics + + + | Address | [address] | | | [place] [address] | + + + | Home Phone [...] + + + | Author | [place] [employer] [facility] | + + + | Organization | [facility] [employer] [facility] | + + + | Address | Unknown | + + + | Phone | Unavailable | + + + Support + + +---------+ + | Name | Relationship | Address | Phone | + + +---------+ + | Ruby Au | ECON | Unknown | | + + +---------+ + Care Team Providers + +------+ + | Care Hitting Coach Name | Role | Phone | [...] Cerebri | | 2006 | Visit | [facility] | Bud Alexander MD [address] | (Primary Dx) | | | | Maicol Perez [facility] | [address] | | | | | [address] | [place], [place] | | | | | Mailcode: [facility] | [address] | | | | | [facility] [place] | [phone] | | | | | [address] | | | | | | [phone] | | | +--------+---------+ + + + [...]
--- OUTSIDE RECORDS SUMMARY | ~2019-11-02 | XMS | Encounter Summary ---
Demographics + + + | Address | [address] | | | [place] [address] | + + + | Home Phone [...] + | Organization | [facility] | | [...] Providers + +------+ + | Care Program Research Specialist Name | Role | Phone | + +------+ + PCP | Unavailable | + +------+ + Encounter Details +--------+ + + + + | Date | Type | Department | Care Team | Description | +--------+ + + + + | 08/16/ | Hospital | [facility] | | | | 1990 | Encounter | MED CTR EMERGENCY | | | | | | CENTER [address] | | | | | | [place] | | | | | | [address] | | | | | | [phone] | | | +--------+ + + + [...]
--- OUTSIDE RECORDS SUMMARY | ~2019-11-02 | XMS | Encounter Summary ---
Demographics + + + | Address | [address] | | | [place] [address] | + + + | Home Phone [...] + + + | Author | [place] [employer] [facility] | + + + | Organization | [facility] [employer]OGENESIS TECHN[employer] [facility] | + [...] Team Providers + +------+ + | Care Secondary Education Professor Name | Role | Phone | + +------+ + | Yeison Simms MD | PCP | Unavailable | + +------+ + Encounter Details +--------+ + + + + | Date | Type | Department | Care Team | Description | +--------+ + + + + | 08/23/ | Telephone | Neurosurgery at | Kiki Rosen, | | | 2007 | | [facility] [address] | [place] [address] | | | | | Yelena Mailcode: CH8N | Neurosurgery [address] | | | | | [facility] | [address] | | | | | and Healing, | [place], [place] | | | | | [place] [address] | [address] | | | | | Floor [place], [place] | | | | | | [address] | | | | | | [phone] | | | +--------+ + + + [...]
--- OUTSIDE RECORDS SUMMARY | ~2019-11-02 | XMS | Encounter Summary ---
Demographics + + + | Address | [address] | | | [place] [address] | + + + | Home Phone [...] + + + | Author | [place] [employer] [facility] | + + + | Organization | [facility] [email or web address] Science [facility] | + [...] Team Providers + +------+ + | Care Pugger Helper Name | Role | Phone | + +------+ + | Brenden Benavides MD | PCP | | + +------+ + Encounter Details +--------+ + + + + | Date | Type | Department | Care Team | Description | +--------+ + + + + | 02/21/ | Telephone | [facility] | [address] | | | 2006 | | [place] | [address] | | | | | Oculoplastics at | Rd [place], [place] | | | | | Maicol Perez [facility] | [address] | | | | | [address] | | | | | | Mailcode: PATTI | | | | | | [place], [place] | | | | | | [address] | | | | | | [phone] | | | +--------+ + + + [...]
--- OUTSIDE RECORDS SUMMARY | ~2019-11-02 | XMS | Encounter Summary ---
Demographics + + + | Address | [address] | | | [place] [address] | + + + | Home Phone [...] + + + | Author | [place] [employer] [facility] | + + + | Organization | [facility] | + [...] Team Providers + +------+ + | Care Fiscal Services Manager Name | Role | Phone [...] Cerebri | | 2007 | Visit | [facility] [address] | [address] | (Primary Dx) | | | | Ave Mailcode: CH8N | Neurosurgery [address] | | | | | [facility] | [address] | | | | | and Healing, | [place], [place] | | | | | Building | [address] | | | | | Floor [place], [place] | | | | | | [address] | | | | | | [phone] | | | +--------+---------+ + + + [...]
--- OUTSIDE RECORDS SUMMARY | ~2019-11-02 | XMS | Encounter Summary ---
Demographics + + + | Address | [address] | | | [place] [address] | + + + | Home Phone [...] + + + | Author | [place] [employer] [facility] | + + + | Organization | [facility] [...] Team Providers + +------+ + | Care Cardiovascular Sonographer Name | Role | Phone | + [...] | | | Ave Mailcode: CH8N | [place], [place] | | | | | [facility] | [address] | | | | | and Healing, | [phone] | | | | | [facility] | | | | | | Floor [place], [place] | | | | | | [address] | | | | | | [phone] | | | +--------+ + + + [...]
--- OUTSIDE RECORDS SUMMARY | ~2019-11-02 | XMS | Encounter Summary ---
Demographics + + + | Address | [address] | | | [place] [address] | + + + | Home Phone [...] + | Organization | [facility] | [...] Providers + +------+ + | Care Shoe Cleaner Name | Role | Phone | + +------+ + PCP | Unavailable | + +------+ + Encounter Details +--------+ + + + + | Date | Type | Department | Care Team | Description | +--------+ + + + + | 07/14/ | Hospital | [facility] | | | | 1998 | Encounter | MED CTR EMERGENCY | | | | | | CENTER [address] | | | | | | [place] | | | | | | [address] | | | | | | [phone] | | | +--------+ + + + [...]
--- OUTSIDE RECORDS SUMMARY | ~2019-11-02 | XMS | Encounter Summary ---
Demographics + + + | Address | [address] | | | [place] [address] | + + + | Home Phone [...] + + + | Author | [place] [employer] [facility] | + + + | Organization | [facility] [employer] [facility] | + + + | Address | Unknown | + + + | Phone | Unavailable | + + + Support + + +---------+ + | Name | Relationship | Address | Phone | + + +---------+ + | Ruby Au | ECON | Unknown | | + + +---------+ + Care Team Providers + +------+ + | Care Children'S Nursery Assistant Name | Role | Phone | [...] | | | Rd Mailcode: PV01 | [place], [place] | | | | | Physician's | [address] | | | | | [place], | [phone] | | | | | [place] [address] | | | | | | [phone] | | | +--------+ + + + [...]
--- OUTSIDE RECORDS SUMMARY | ~2019-11-02 | XMS | Encounter Summary ---
Demographics + + + | Address | [address] | | | [place] [address] | + + + | Home Phone [...] Organization | [facility] | [...] Providers + +------+ + | Care Flight Readiness Technician Name | Role | Phone | + +------+ + PCP | Unavailable | + +------+ + Encounter Details +--------+ + + + + | Date | Type | Department | Care Team | Description | +--------+ + + + + | 09/30/ | Hospital | [facility] | | | | 1991 | Encounter | [facility] | | | | | | HEALTH [address] | | | | | | [place], | | | | | | [place] [address] | | | | | | [phone] | | | +--------+ + + + [...]
--- OUTSIDE RECORDS SUMMARY | ~2019-11-02 | XMS | Encounter Summary ---
Demographics + + + | Address | [address] | | | [place] [address] | + + + | Home Phone [...] Organization | [facility] | [...] Team Providers + +------+ + | Care Brokerage Clerk Name | Role | Phone | [...] | PHYSIATRY [address] | [address] | | | | | [place], | [place] | | | | | [place] [address] | [place] [address] | | | | | [phone] | | | +--------+ + + + [...]
--- OUTSIDE RECORDS SUMMARY | ~2019-11-02 | XMS | Encounter Summary ---
Demographics + + + | Address | [address] | | | [place] [address] | + + + | Home Phone [...] + + + | Author | [place] [employer] [facility] | + + + | Organization | [facility] | + + + | Address | Unknown | + + + | Phone | Unavailable | + + + Support + + +---------+ + | Name | Relationship | Address | Phone | + + +---------+ + | Ruby Au | ECON | Unknown | | + + +---------+ + Care Team Providers + +------+ + | Care Strand Galvanizer Name | Role | Phone | + [...] [place], [place] | | | | | [facility] | [address] | | | | | Floor [place], [place] | | | | | | [address] | | | | | | [phone] | | | +--------+ + + + [...]
--- OUTSIDE RECORDS SUMMARY | ~2019-11-02 | XMS | Encounter Summary ---
Demographics + + + | Address | [address] | | | [place] [address] | + + + | Home Phone [...] + + + | Author | [place] [employer] [facility] | + + + | Organization | [facility] [employer] [facility] | + [...] Team Providers + +------+ + | Care Patient Financial Coordinator Name | Role | Phone | [...] | | | | | hypertension | [place], [place] | [place], [place] | | | | | Procedures | [address] | [address] | | | | | REQUEST TO | Phone: | Phone: | | | | | SURGERY | [phone] | [phone] | | | | | HEEL STAINER | Fax: | Fax: | | | | | ID INSTALL | [phone] | [phone] | | | | | SPINAL | [...] | | | Ave Mailcode: CH8N | [place], [place] | | | | | [facility] | [address] | | | | | and [place], | [phone] | | | | | [facility] | | | | | | Floor [place], [place] | | | | | | [address] | | | | | | [phone] | | | +--------+ + + + [...]
--- OUTSIDE RECORDS SUMMARY | ~2019-11-02 | XMS | Encounter Summary ---
Demographics + + + | Address | [address] | | | [place] [address] | + + + | Home Phone [...] + + | Author | [place] [employer] [facility] | + + + | Organization | [facility] [employer] [facility] | + + + | Address | Unknown | + + + | Phone | Unavailable | + + + Support + + +---------+ + | Name | Relationship | Address | Phone | + + +---------+ + | Ruby Au | ECON | Unknown | | + + +---------+ + Care Team Providers + +------+ + | Care Juvenile Counselor Name | Role | Phone | [...] | | | Ave Mailcode: CH8N | [place], [place] | | | | | [facility] | [address] | | | | | and Healing, | [phone] | | | | | [facility] | | | | | | Floor [place], [place] | | | | | | [address] | | | | | | [phone] | | | +--------+ + + + [...]
--- OUTSIDE RECORDS SUMMARY | ~2019-11-02 | XMS | Encounter Summary ---
Demographics + + + | Address | [address] | | | [place] [address] | + + + | Home Phone [...] | Organization | [facility] [...] Team Providers + +------+ + | Care Riprap Worker Name | Role | Phone | + +------+ + PCP | Unavailable | + +------+ + Encounter Details +--------+ + + + + | Date | Type | Department | Care Team | Description | +--------+ + + + + | 07/12/ | Hospital | [facility] | Conversion | | | 2010 | Encounter | [facility] | Transaction, | | | | | EMERGENCY CENTER | Provider Unknown | | | | | [address] | | | | | | [place] | (Fax) | | | | | [address] | | | | | | [phone] | | | +--------+ + + + [...]
--- OUTSIDE RECORDS SUMMARY | ~2019-11-02 | XMS | Encounter Summary ---
Demographics + + + | Address | [address] | | | [place] [address] | + + + | Home Phone [...] + + + | Author | [place] [employer] [facility] | + + + | Organization | [facility] [employer] [facility] | + [...] Providers + +------+ + | Care Data Review Specialist Name | Role | Phone | [...] [address] | | | | | | [facility] | | | | | | [place], [place] | | | | | | [address] | | | | | | [phone] | | | +--------+ + + + [...]
--- OUTSIDE RECORDS SUMMARY | ~2019-11-02 | XMS | Encounter Summary ---
Demographics + + + | Address | [address] | | | [place] [address] | + + + | Home Phone [...] Organization | [facility] | [...] Providers + +------+ + | Care Ski Maker Name | Role | Phone | + +------+ + PCP | Unavailable | + +------+ + Encounter Details +--------+ + + + + | Date | Type | Department | Care Team | Description | +--------+ + + + + | 08/03/ | Hospital | [facility] | | | | 1990 | Encounter | MED CTR EMERGENCY | | | | | | CENTER [address] | | | | | | [place] | | | | | | [address] | | | | | | [phone] | | | +--------+ + + + [...]
--- OUTSIDE RECORDS SUMMARY | ~2019-11-02 | XMS | Encounter Summary ---
Demographics + + + | Address | [address] | | | [place] [address] | + + + | Home Phone [...] + + + | Author | [place] [employer] [facility] | + + + | Organization | [facility] [employer] [facility] [...] Team Providers + +------+ + | Care Guard Rail Installer Name | Role | Phone | [...] Cerebri | | 2007 | Visit | [facility] [address] | [address] | (Primary Dx) | | | | Ave Mailcode: CH8N | [place], [place] | | | | | [facility] | [address] | | | | | and Healing, | [phone] | | | | | [facility] | | | | | | Floor [place], [place] | | | | | | [address] | | | | | | [phone] | | | +--------+---------+ + + + [...]
--- OUTSIDE RECORDS SUMMARY | ~2019-11-02 | XMS | Encounter Summary ---
Demographics + + + | Address | [address] | | | [place] [address] | + + + | Home Phone [...] + + + | Author | [place] [employer] [facility] | + + + | Organization | [facility] War[employer] [facility] | + + + | Address | Unknown | + + + | Phone | Unavailable | + + + Support + + +---------+ + | Name | Relationship | Address | Phone | + + +---------+ + | Ruby Au | ECON | Unknown | | + + +---------+ + Care Team Providers + +------+ + | Care Guest Service Representative Name | Role | Phone [...] | | | Ave Mailcode: CH8N | [place], [place] | | | | | [facility] | [address] | | | | | and Healing, | [phone] | | | | | | | | | | | Floor [place], [place] | | | | | | [address] | | | | | | [phone] | | | +--------+ + + + [...]
--- OUTSIDE RECORDS SUMMARY | ~2019-11-02 | XMS | Encounter Summary ---
Demographics + + + | Address | [address] | | | [place] [address] | + + + | Home Phone | | + + + | Preferred Language | Unknown | + + + | Marital Status | | + + + | Pentecostal Affiliation | Unknown | + + + | Race | Unknown | + + + | Ethnic Group | Unknown | + + + Author + + + | Author | [facility] | | | and [place] | + + + | Organization | [facility] [...] Team Providers + +------+ + | Care Size Cutter Name | Role | Phone | + +------+ + PCP | Unavailable | + +------+ + Encounter Details +--------+ + + + + | Date | Type | Department | Care Team | Description | +--------+ + + + + | 03/03/ | Emergency | [facility] | Artis Reyes DO | Pain, abdominal, | | 2012 | | MEDICAL CENTER | [address] | unknown etiology | | | | EMERGENCY CENTER | [place], [place] | | | | | [address] [facility] | [address] | | | | | [place], [place] | [phone] | | | | | [address] | | | | | | [phone] | | | +--------+ + + + [...]
--- OUTSIDE RECORDS SUMMARY | ~2019-11-02 | XMS | Encounter Summary ---
Demographics + + + | Address | [address] | | | [place] [address] | + + + | Home Phone [...] + + + | Author | [place] [employer] [facility] | + + + | Organization | [facility] My Team Zone Science [facility] [...] Team Providers + +------+ + | Care Agriculture Teacher Name | Role | Phone | + +------+ + | Dennis Maddox | PCP | | + +------+ + Encounter Details +--------+ + + + + | Date | Type | Department | Care Team | Description | +--------+ + + + + | 03/15/ | Telephone | [facility] | Ronaldo Martin MD | | | 2012 | | [place]/Ophthalmol | [facility] | | | | | leon at [facility] [address] | [address] [place] [address] | | | | | [address] Mailcode: | [place] [address] | | | | | CH11P [facility] | [phone] | | | | | Health and Healing, | | | | | | | | | | | | [place], [place] | | | | | | [address] | | | | | | [phone] | | | +--------+ + + + [...]
--- OUTSIDE RECORDS SUMMARY | ~2019-11-02 | XMS | Encounter Summary ---
Demographics + + + | Address | [address] | | | [place] [address] | + + + | Home Phone [...] + + + | Author | [place] she[employer]hou[employer] [facility] | + + + | Organization | [facility] [employer] [facility] | + + [...] Providers + +------+ + | Care Senior Gis Analyst Name | Role | Phone | [...] Mailcode: | | | | | | [place], [place] | [address] [facility] | | | | | | [address] | Hospital | | | | | | Phone: | [place], [place] | | | | | | [phone] | [address] | | | | | | Fax: | Phone: | | | | | | [phone] | [phone] | | | | | | | Fax: | | | | | | | [phone] | +--------+--------+ + + + + Reason for Visit + + + | Reason | Comments | + + + | 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 Your head CT was negative for any new findings. The neurosurgeon did not think there was a malfunction in your shunt. The relocation specialist recommends you taking Diomox again and follow up in [address] [facility]. Please follow up with your doctor. Rest, [...] T[facility] | [address] | [place], [place] | | | [place] POINT OF CARE | [address] | [address] | | | TESTS | | | [...] | + + + + + | [facility] | [address] | [place] [address] | | | SERVICES, CORE | SKY [...] | | | | | CHRISTIANO TORRES ([id number]) | | | | | | on 03/14/2013 10:35:55 AM | | | | + + + + + + + + | Specimen | + + | | + + + + + | Narrative | Performed At | + + + | Please click | [facility] | | on view image for the detailed interpretation from [employer] results. | CARDIOLOGY | + + + + + + + + | Performing | Address | City/State/Zipcode | Phone Number | | Organization | | | | + + + + + | [facility] | [address] | [place], [place] | | | CARDIOLOGY | [address] | [address] | | + + + + + [...] [facility] | [address] | [place], [place] | | | NACH[place] POINT OF CARE | [address] | [address] | | | TESTS | | | [...] [facility] | [address] | [place] [address] | | | SERVICES, CORE | PARK [...] | + + + + + | [facility] | [address] | [place] [address] | | | SERVICES, CORE | SKY [...] | | | LABORATORY | | | [place] | | | SERVICES, | | | [...] | + + + + + | [facility] | [address] | [place] [address] | | | SERVICES, CORE | PARK [...] | + + + + + | [facility] | [address] | [place] [address] | | | SERVICES, CORE | SKY [...] + | [place] - AIR[place] - | [address] | [place] [address] | | | [place] | | | [...] | + + + + + | [facility] | [address] | [place] [address] | | | SERVICES, CORE | SKY [...]
--- OUTSIDE RECORDS SUMMARY | ~2019-11-02 | XMS | Encounter Summary ---
Demographics + + + | Address | [address] | | | [place] [address] | + + + | Home Phone [...] + + + | Author | [place] [employer] [facility] | + + + | Organization | [facility] [employer] Science [facility] [...] + +------+ + | Care Manager Of Care Name | Role | Phone | [...] Cerebri | | 2006 | Visit | [place] | | (Primary Dx) | | | | Neuro-Ophthalmology | | | | | | [address] | | | | | | [place] Mailcode: CEI | | | | | | Mailcode: CEI | | | | | | [place], [place] | | | | | | [address] | | | | | | [phone] | | | +--------+---------+ + + + [...] Brad Currie MD Neuro-Ophthalmology and Cerebrovascular Disease Clothing Consultant of Ophthalmology, Neurology, and Neurosurgery documented in [...] | + + +--------+ + + | DC VISUAL FIELD | Procedures | Routin | Pseudotumor | Ordered: 12/02/2006 | | EXAM,EXTENDED | | e | Cerebri | | + + +--------+ + + documented as of this encounter Visit Diagnoses + + | Diagnosis | + + | Pseudotumor cerebri - Primary Benign intracranial hypertension | + + documented in this encounter"
--- OUTSIDE RECORDS SUMMARY | ~2019-11-02 | XMS | Encounter Summary ---
Demographics + + + | Address | [address] | | | [place] [address] | + + + | Home Phone [...] + + + | Author | [place] [employer] [facility] | + + + | Organization | [facility] [employer] [facility] [...] Team Providers + +------+ + | Care Satellite Communications Engineer Name | Role | Phone | + +------+ + | Pedro Luis Sams MD | PCP | | + +------+ + Encounter Details +--------+ + + + + | Date | Type | Department | Care Team | Description | +--------+ + + + + | 03/10/ | Telephone | Neurosurgery at | Steph Reyes MD | | | 2012 | | [facility] [address] | | | | | | [place] Mailcode: CH8N | | | | | | [facility] | | | | | | and Healing, | | | | | | Building [address], [address]th | | | | | | Floor [place], [place] | | | | | | [address] | | | | | | [phone] | | | +--------+ + + + [...]
--- OUTSIDE RECORDS SUMMARY | ~2019-11-02 | XMS | Encounter Summary ---
Demographics + + + | Address | [address] | | | [place] [address] | + + + | Home Phone | | + + + | Preferred Language | Unknown | + + + | Marital Status | | + + + | Moravian Affiliation | NON | + + + | Race | or | + + + | Ethnic Group | Not or | + + + Author + + + | Author | [place] [employer] [facility] | + + + | Organization | [facility] [place] [employer] [facility] | + [...] Team Providers + +------+ + | Care Mac Artist Name | Role | Phone | [...] | | | Ave Mailcode: CH8N | [place], [place] | | | | | [facility] | [address] | | | | | and Healing, | [phone] | | | | | [facility] | | | | | | Floor [place], [place] | | | | | | [address] | | | | | | [phone] | | | +--------+--------+ + + + [...]
--- OUTSIDE RECORDS SUMMARY | ~2019-11-02 | XMS | Encounter Summary ---
Demographics + + + | Address | [address] | | | [place] [address] | + + + | Home Phone [...] + + + | Author | [place] [id number] Science [facility] | + + + | Organization | [facility] [employer] [facility] | [...] Team Providers + +------+ + | Care Sebd Teacher Name | Role | Phone | [...] Operative Report | | 2006 | | [place] [facility] [address] | | | | | Transcribed | [address] | | | | | | Mailcode: Center | | | | | | for Health and | | | | | | Healing, [facility] [address] | | | | | | [place], [place] | | | | | | [address] | | | | | | [phone] | | | +--------+ + + + [...] | 02/07/2007 12:00 AM PDT | | [id number] | | [id number] [place] [id number] | | | | Date: 02/07/2007 | | | | Attending Surgeon: Hay Hughes M.D. | | | | Pcb Design Engineer(s): Pascual Bermudez M.D. | | | | [...] and medial orbital | | septum. The optometry assistant retracted the orbital fat bag with [...] | | KYM / LANETTE | | [id number] / [id number] / [id number] / 39299 | | | | | | | | cc: | | | | | | Brad Currie M.D. | | [facility] | | | | | | Brenden Benavides M.D. | | [facility] | | [address] [facility] [address] | | [place] [address] | | | | | | Electronically signed by Hay Hughes 02-12-2007 05:13:05 PM | | | | | + + documented in this encounter Visit Diagnoses Not on filedocumented in this encounter"
--- OUTSIDE RECORDS SUMMARY | ~2019-11-02 | XMS | Encounter Summary ---
Demographics + + + | Address | [address] | | | [place] [address] | + + + | Home Phone [...] + + | Author | [place] [employer] [facility] | + + + | Organization | [facility] [employer] [facility] | + + [...] Providers + +------+ + | Care Campus Monitor Name | Role | Phone | + +------+ + | Brenden Benavides MD | PCP | | + +------+ + Encounter Details +--------+ + + + + | Date | Type | Department | Care Team | Description | +--------+ + + + + | 02/23/ | Telephone | [facility] | Brad Currie MD | | | 2006 | | [place] | | | | | | Neuro-Ophthalmology | | | | | | [address] | | | | | | [place] Mailcode: CEI | | | | | | Mailcode: CEI | | | | | | [place], [place] | | | | | | [address] | | | | | | [phone] | | | +--------+ + + + [...]
--- OUTSIDE RECORDS SUMMARY | ~2019-11-02 | XMS | Encounter Summary ---
Demographics + + + | Address | [address] | | | [place] [address] | + + + | Home Phone [...] + + + | Author | [place] [employer] [facility] | + + + | Organization | [facility] co[facility]ala - [employer] [facility] | + [...] Team Providers + +------+ + | Care Tungsten Refiner Name | Role | Phone | + [...] | | | | | cerebri | [address] | | | | | | Procedures | Ave | | | | | | CONSULT TO | [place], [place] | | | | | | CEI | [address] | | | | | | | Phone: | | | | | | | [phone] | | | | | | | Fax: | | | | | | | [phone] | | +--------+--------+ + + + + [...] 2005 | Visit | [address] [place] | [address] | (Primary Dx) | | | | Rd Mailcode:OP14B | [place], [place] | | | | | [facility] | [address] | | | | | [place], [place] | [phone] | | | | | [address] | | | | | | [phone] | | | +--------+---------+ + + + [...] pressu re. Referral to Dr. Maloney in [place] where a lumboperitoneal shunt was placed and subsequently explanted due to infection and migration of the catheter tip from the peritoneal space. She feels that her symptoms were helped at the time of the placement of the shunt; the head aches and visual problems have worsened since shunt removal. She has opted to come to [facility] rather than to return to [place] based on travel convenience. Review of Systems: [...] brain without; Neuro-ophthalmology consultation. documented in [facility] Plan of Treatment Not on filedocumented [...] | | + +---------+ + + | [facility] DEPARTMENT OF | | | | | RADIOLOGY | | | | + +---------+ + + documented in this encounter Visit Diagnoses + + | Diagnosis | + + | Pseudotumor cerebri - Primary Benign intracranial hypertension | + + documented in this encounter
--- OUTSIDE RECORDS SUMMARY | ~2019-11-02 | XMS | Encounter Summary ---
Demographics + + + | Address | [address] | | | [place] [address] | + + + | Home Phone [...] | [facility] | | [...] Team Providers + +------+ + | Care Ribbon Weaver Name | Role | Phone | + +------+ + PCP | Unavailable | + +------+ + Encounter Details +--------+ + + + + | Date | Type | Department | Care Team | Description | +--------+ + + + + | 06/10/ | Hospital | [facility] | | | | 1991 | Encounter | MED CTR [facility] | | | | | | HEALTH SV [address] | | | | | | [place], | | | | | | [place] [address] | | | | | | [phone] | | | +--------+ + + + [...]
--- OUTSIDE RECORDS SUMMARY | ~2019-11-02 | XMS | Encounter Summary ---
Demographics + + + | Address | [address] | | | [place] [address] | + + + | Home Phone [...] + + | Author | [place] [employer] [facility] | + + + | Organization | [facility] [employer] [facility] [...] Team Providers + +------+ + | Care Recycle Driver Name | Role | Phone | [...] Cerebri | | 2007 | Visit | [facility] [address] | [address] | (Primary Dx) | | | | Ave Mailcode: CH8N | [place], [place] | | | | | [facility] | [address] | | | | | and Healing, | [phone] | | | | | [facility] | | | | | | Floor [place], [place] | | | | | | [address] | | | | | | [phone] | | | +--------+---------+ + + + [...] wanted to have LP shunt instead of STRIKER OFF shunt because she d oes not weant [...]
--- OUTSIDE RECORDS SUMMARY | ~2019-11-02 | XMS | Encounter Summary ---
Demographics + + + | Address | [address] | | | [place] [address] | + + + | Home Phone [...] + + + | Author | [place] [employer] [facility] | + + + | Organization | [facility] Emulation [employer] [facility] [...] Team Providers + +------+ + | Care Projection Engineer Name | Role | Phone | [...] Neurosurgery [address] | | | | | [facility] | [address] | | | | | and Healing, | [place], [place] | | | | | [facility] | [address] | | | | | Floor [place], [place] | | | | | | [address] | | | | | | [phone] | | | +--------+ + + + [...]
--- OUTSIDE RECORDS SUMMARY | ~2019-11-02 | XMS | Encounter Summary ---
Demographics + + + | Address | [address] | | | [place] [address] | + + + | Home Phone [...] | Organization | [facility] | [...] Providers + +------+ + | Care Patient Office Rep Name | Role | Phone | + +------+ + PCP | Unavailable | + +------+ + Encounter Details +--------+ + + + + | Date | Type | Department | Care Team | Description | +--------+ + + + + | 08/03/ | Hospital | [facility] | | | | 1990 | Encounter | MED CTR EMERGENCY | | | | | | CENTER [address] | | | | | | [place] | | | | | | [address] | | | | | | [phone] | | | +--------+ + + + [...]
--- OUTSIDE RECORDS SUMMARY | ~2019-11-02 | XMS | Encounter Summary ---
Demographics + + + | Address | [address] | | | [place] [address] | + + + | Home Phone [...] | Organization | [facility] | [...] Providers + +------+ + | Care Electronics Tester Name | Role | Phone | [...] | | | | | | [place] [address] | | | | | | [phone] | | | +--------+ + + + [...]
--- OUTSIDE RECORDS SUMMARY | ~2019-11-02 | XMS | Encounter Summary ---
Demographics + + + | Address | [address] | | | [place] [address] | + + + | Home Phone [...] + + + | Author | [place] [employer] [facility] | + + + | Organization | [facility] Science [facility] [...] Providers + +------+ + | Care Supervisor Assembling Name | Role | Phone | + [...] | Headache | | 2014 | | [place] | [address] | | | | | Neuro-Ophthalmology | [facility] [place] | | | | | at [facility] [address] | [address] | | | | | Ave Mailcode: [facility] | [phone] | | | | | [facility] | | | | | | and Healing, | | | | | | Building | | | | | | Floor [place], [place] | | | | | | [address] | | | | | | [phone] | | | +--------+ + + + [...]
--- OUTSIDE RECORDS SUMMARY | ~2019-11-02 | XMS | Encounter Summary ---
Demographics + + + | Address | [address] | | | [place] [address] | + + + | Home Phone [...] + + + | Author | [place] [employer] [facility] | + + + | Organization | [facility] [employer] [facility] [...] Providers + +------+ + | Care Ship Ceiler Name | Role | Phone | + [...] | | 2006 | Visit | [place] | | (Primary Dx) | | | | Neuro-Ophthalmology | | | | | | [address] | | | | | | [place] Mailcode: CEI | | | | | | Mailcode: CEI | | | | | | [place], [place] | | | | | | [address] | | | | | | [phone] | | | +--------+---------+ + + + [...] by: CASIMIRO PAYTON MD [address] [place] [address] Per [facility] chart note taken this morning by . Symptoms: Patient specific problem noted by patient: transient visual loss HPI: 31 y.o. 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 : negative Musculoskeletal: negative [...] Brad Currie MD Neuro-Ophthalmology and Cerebrovascular Disease Plant Chief of Ophthalmology, Neurology, and Neurosurgery documented in [...]
--- OUTSIDE RECORDS SUMMARY | ~2019-11-02 | XMS | Encounter Summary ---
Demographics + + + | Address | [address] | | | [place] [address] | + + + | Home Phone [...] + + + | Author | [place] [employer] [facility] | + + + | Organization | [facility] [employer] Science [facility] | + [...] Team Providers + +------+ + | Care Transit Authority Police Officer Name | Role | Phone | + +------+ + | Yeison Simms MD | PCP | Unavailable | + +------+ + Reason for Visit + + + | Reason | Comments | + + + | Refill Request | refill on [place] | + + + Encounter Details +--------+--------+ + + + | Date | Type | Department | Care Team | Description | +--------+--------+ + + + | 08/27/ | Refill | Neurosurgery at | Sam Pedroza MD | Refill Request | | 2007 | | [facility] [address] | [address] | (refill on [place]) | | | | Ave Mailcode: CH8N | [place], [place] | | | | | [facility] | [address] | | | | | and Healing, | [phone] | | | | | [facility] | | | | | | Floor [place], [place] | | | | | | [address] | | | | | | [phone] | | | +--------+--------+ + + + [...]
--- OUTSIDE RECORDS SUMMARY | ~2019-11-02 | XMS | Encounter Summary ---
Demographics + + + | Address | [address] | | | [place] [address] | + + + | Home Phone [...] Organization | [facility] | | [...] + + | 06/20/ | Hospital | [facility] | Yovanny Suazo, | | | 1991 | Encounter | MED CTR [facility] | MD [address] | | | | | HEALTH [facility] [address] | [address] | | | | | [place], | [place] [address] | | | | | [place] [address] | [phone] | | | | | [phone] | | | +--------+ + + + [...]
--- OUTSIDE RECORDS SUMMARY | ~2019-11-02 | XMS | Encounter Summary ---
Demographics + + + | Address | [address] | | | [place] [address] | + + + | Home Phone [...] | Organization | [facility] | [...] + +------+ + | Care Electric Sign Wirer Name | Role | Phone | + +------+ + PCP | Unavailable | + +------+ + Encounter Details +--------+ + + + + | Date | Type | Department | Care Team | Description | +--------+ + + + + | 11/22/ | Hospital | [facility] | | | | 1995 | Encounter | MED CTR EMERGENCY | | | | | | CENTER [address] | | | | | | [place] | | | | | | [address] | | | | | | [phone] | | | +--------+ + + + [...]
--- OUTSIDE RECORDS SUMMARY | ~2019-11-02 | XMS | Encounter Summary ---
Demographics + + + | Address | [address] | | | [place] [address] | + + + | Home Phone [...] | Organization | [facility] [...] Providers + +------+ + | Care Systems Integration Manager Name | Role | Phone | + +------+ + PCP | Unavailable | + +------+ + Encounter Details +--------+ + + + + | Date | Type | Department | Care Team | Description | +--------+ + + + + | 04/24/ | Hospital | [facility] | | | | 2004 | Encounter | MED CTR EMERGENCY | | | | | | CENTER [address] | | | | | | [place] | | | | | | [address] | | | | | | [phone] | | | +--------+ + + + [...]
--- OUTSIDE RECORDS SUMMARY | ~2019-11-02 | XMS | Encounter Summary ---
Demographics + + + | Address | [address] | | | [place] [address] | + + + | Home Phone [...] + + + | Author | [place] [address] Science [facility] | + + + | Organization | [facility] [employer] Science [facility] | [...] Team Providers + +------+ + | Care Petal Cutter Name | Role | Phone | [...] Cerebri | | 2006 | Visit | [place] | | | | | | Photography at | | | | | | [address] | | | | | | [address] | | | | | | Mailcode: PATTI | | | | | | [place], [place] | | | | | | [address] | | | | | | [phone] | | | +--------+---------+ + + + [...] PM DINOAnnabella Au was seen in the [facility] [place] [facility]/Ultrasound Department today, 11/30/2006, for ultrasound OU [...]
--- OUTSIDE RECORDS SUMMARY | ~2019-11-02 | XMS | Encounter Summary ---
Demographics + + + | Address | [address] | | | [place] [address] | + + + | Home Phone [...] + + + | Author | [place] [employer] Science [facility] | + + + | Organization | [facility] LC [employer] Science [facility] | + [...] Providers + +------+ + | Care Communications Intern Name | Role | Phone | + +------+ + | Brenden Benavides MD | PCP | | + +------+ + Encounter Details +--------+ + + + + | Date | Type | Department | Care Team | Description | +--------+ + + + + | 09/28/ | Documentati | [facility] | Brad Currie MD | | | 2006 | on | [place] | | | | | | Neuro-Ophthalmology | | | | | | [address] | | | | | | [place] Mailcode: CEI | | | | | | Mailcode: PATTI | | | | | | [place], [place] | | | | | | [address] | | | | | | [phone] | | | +--------+ + + + [...]
--- OUTSIDE RECORDS SUMMARY | ~2019-11-02 | XMS | Encounter Summary ---
Demographics + + + | Address | [address] | | | [place] [address] | + + + | Home Phone [...] + + + | Author | [place] [employer] Science [facility] | + + + | Organization | [facility] [employer] Science [facility] | + [...] Providers + +------+ + | Care Clinical Pathologist Name | Role | Phone | + [...] [place], [place] | | | | | [facility] | [address] | | | | | and Healing, | [phone] | | | | | [facility] | | | | | | Floor [place], [place] | | | | | | [address] | | | | | | [phone] | | | +--------+ + + + [...]
--- OUTSIDE RECORDS SUMMARY | ~2019-11-02 | XMS | Encounter Summary ---
Demographics + + + | Address | [address] | | | [place] [address] | + + + | Home Phone [...] + + + | Author | [place] [employer] Science [facility] | + + + | Organization | [facility] [employer] [facility] | [...] Team Providers + +------+ + | Care Phonograph Cartridge Assembler Name | Role | Phone | [...] [place] [address] | [address] | | | | | [address] Mailcode: CH8N | [place] | | | | | [facility] | Rd [place], [place] | | | | | and Healing, | [address] | | | | | | [phone] | | | | | Floor [place], [place] | | | | | | [address] | | | | | | [phone] | | | +--------+ + + + [...]
--- OUTSIDE RECORDS SUMMARY | ~2019-11-02 | XMS | Encounter Summary ---
Demographics + + + | Address | [address] | | | [place] [address] | + + + | Home Phone [...] + + | Author | [place] [employer] Science [facility] | + + + | Organization | [facility] [employer] [facility] | + [...] Team Providers + +------+ + | Care Portrait Studio Photographer Name | Role | Phone | [...] Medication requested | | 2010 | | [facility] [address] | [address] | | | | | Ave Mailcode: CH8N | [place], [place] | | | | | [facility] | [address] | | | | | and [place], | [phone] | | | | | [facility] | | | | | | Floor [place], [place] | | | | | | [address] | | | | | | [phone] | | | +--------+ + + + [...]
--- OUTSIDE RECORDS SUMMARY | ~2019-11-02 | XMS | Encounter Summary ---
Demographics + + + | Address | [address] | | | [place] [address] | + + + | Home Phone [...] [facility] | | | and [place] | + + + | Address | Unknown | + + + | Phone | Unavailable | + + + Support + + +---------+ + | Name | Relationship | Address | Phone | + + +---------+ + | Saad Chamorro | ECON | Unknown | | + + +---------+ + Care Team Providers + +------+ + | Care Gauge And Weigh Machine Adjuster Name | Role | Phone | + +------+ + PCP | Unavailable | + +------+ + Encounter Details +--------+ + + + + | Date | Type | Department | Care Team | Description | +--------+ + + + + | 05/31/ | Hospital | [facility] | | | | 1991 | Encounter | [facility] | | | | | | HEALTH SV [address] | | | | | | [place], | | | | | | [place] [address] | | | | | | [phone] | | | +--------+ + + + [...]
--- OUTSIDE RECORDS SUMMARY | ~2019-11-02 | XMS | Encounter Summary ---
Demographics + + + | Address | [address] | | | [place] [address] | + + + | Home Phone [...] Organization | [place] [facility] [...] Team Providers + +------+ + | Care Volcanology Professor Name | Role | Phone | + +------+ + PCP | Unavailable | + +------+ + Encounter Details +--------+ + + + + | Date | Type | Department | Care Team | Description | +--------+ + + + + | 05/15/ | Hospital | [facility] | | | | 1991 | Encounter | MED CTR XRAY [address] | | | | | | [place] | | | | | | [place] [address] | | | | | | [phone] | | | +--------+ + + + [...]
--- OUTSIDE RECORDS SUMMARY | ~2019-11-02 | XMS | Encounter Summary ---
Demographics + + + | Address | [address] | | | [place] [address] | + + + | Home Phone [...] | [facility] | [...] Team Providers + +------+ + | Care Tractor Trailer Operator Name | Role | Phone | + +------+ + PCP | Unavailable | + +------+ + Encounter Details +--------+ + + + + | Date | Type | Department | Care Team | Description | +--------+ + + + + | 07/14/ | Hospital | [facility] | | | | 1998 | Encounter | MED CTR EMERGENCY | | | | | | CENTER [address] | | | | | | [place] | | | | | | [address] | | | | | | [phone] | | | +--------+ + + + [...]
--- OUTSIDE RECORDS SUMMARY | ~2019-11-02 | XMS | Encounter Summary ---
Demographics + + + | Address | [address] | | | [place] [address] | + + + | Home Phone [...] + + + | Author | [place] [employer] Science [facility] | + + + | Organization | [facility] [employer] Science [facility] | + [...] Providers + +------+ + | Care Software Engineer Name | Role | Phone | [...] | | [place] Mailcode:OP14B | [place], | | | | | [facility] | [place] [address] | | | | | [place], [place] | | | | | | [address] | | | | | | [phone] | | | +--------+ + + + [...]
--- OUTSIDE RECORDS SUMMARY | ~2019-11-02 | XMS | Encounter Summary ---
Demographics + + + | Address | [address] | | | [place] [address] | + + + | Home Phone [...] + + | Author | [place] [employer] [facility] | + + + | Organization | [facility] | [...] Team Providers + +------+ + | Care Auth Specialist Name | Role | Phone | [...] + + | 06/24/ | Emergency | [facility] | | | | 2010 | | Department [address] | | | | | | [address] Yung [address] Mal[address] | | | | | | [facility] | | | | | | [place], [place] | | | | | | [address] | | | | | | [phone] | | | +--------+ + + + [...]
--- OUTSIDE RECORDS SUMMARY | ~2019-11-02 | XMS | Encounter Summary ---
Demographics + + + | Address | [address] | | | [place] [address] | + + + | Home Phone [...] + + + | Author | [place] [employer] [facility] | + + + | Organization | [facility] | + + + | Address | Unknown | + + + | Phone | Unavailable | + + + Support + + +---------+ + | Name | Relationship | Address | Phone | + + +---------+ + | Ruby Au | ECON | Unknown | | + + +---------+ + Care Team Providers + +------+ + | Care Tetryl Blender Operator Name | Role | Phone | [...] Cerebri | | 2006 | Visit | [facility] | Bud Alexander MD [address] | (Primary Dx) | | | | Maicol Perez [facility] | [address] | | | | | [address] | [place], [place] | | | | | Mailcode: [facility] | [address] | | | | | [facility] [place] | [phone] | | | | | [address] | | | | | | [phone] | | | +--------+---------+ + + + [...]
--- OUTSIDE RECORDS SUMMARY | ~2019-11-02 | XMS | Encounter Summary ---
Demographics + + + | Address | [address] | | | [place] [address] | + + + | Home Phone [...] + | Organization | [facility] | [...] Team Providers + +------+ + | Care Coal Digger Name | Role | Phone | + +------+ + PCP | Unavailable | + +------+ + Encounter Details +--------+ + + + + | Date | Type | Department | Care Team | Description | +--------+ + + + + | 09/03/ | Hospital | [facility] | | | | 1991 | Encounter | [facility] | | | | | | HEALTH [facility] [address] | | | | | | [place], | | | | | | [place] [address] | | | | | | [phone] | | | +--------+ + + + [...]
--- OUTSIDE RECORDS SUMMARY | ~2019-11-02 | XMS | Encounter Summary ---
Demographics + + + | Address | [address] | | | [place] [address] | + + + | Home Phone [...] | Organization | [facility] | | | [...] + +------+ + | Care Senior Quality Methods Specialist Name | Role | Phone | + +------+ + PCP | Unavailable | + +------+ + Encounter Details +--------+ + + + + | Date | Type | Department | Care Team | Description | +--------+ + + + + | 08/21/ | Hospital | [facility] | | | | 1991 | Encounter | MED CTR EM[facility]Y | | | | | | CENTER [address] | | | | | | [place] | | | | | | [address] | | | | | | [phone] | | | +--------+ + + + [...]
--- OUTSIDE RECORDS SUMMARY | ~2019-11-02 | XMS | Encounter Summary ---
Demographics + + + | Address | [address] | | | [place] [address] | + + + | Home Phone [...] + + | Author | [place] [employer] [facility] | + + + | Organization | [facility] [facility] | [...] MD | | | 2006 | | [place] | | | | | | Neuro-Ophthalmology | | | | | | [address] | | | | | | [place] Mailcode: [facility] | | | | | | Mailcode: [facility] | | | | | | [place], [place] | | | | | | [address] | | | | | | [phone] | | | +--------+ + + + [...]
--- OUTSIDE RECORDS SUMMARY | ~2019-11-02 | XMS | Encounter Summary ---
Demographics + + + | Address | [address] | | | [place] [address] | + + + | Home Phone [...] | [facility] | [...] Providers + +------+ + | Care Director Global Name | Role | Phone | + +------+ + PCP | Unavailable | + +------+ + Encounter Details +--------+ + + + + | Date | Type | Department | Care Team | Description | +--------+ + + + + | 10/20/ | Hospital | [facility] | | | | 1999 | Encounter | MED CTR EMERGENCY | | | | | | CENTER [address] | | | | | | [place] | | | | | | [address] | | | | | | [phone] | | | +--------+ + + + [...]
--- OUTSIDE RECORDS SUMMARY | ~2019-11-02 | XMS | Encounter Summary ---
Demographics + + + | Address | [address] | | | [place] [address] | + + + | Home Phone [...] + + + | Author | [place] [employer] [facility] | + + + | Organization | [facility] [...] Team Providers + +------+ + | Care Avionics Safety Inspector Name | Role | Phone | [...] [address] | | | | | | [address] | [address] | | | | | | [address] | [place], [place] | | | | | | [place], | [address] | | | | | | [place] [address] | Phone: | | | | | | Phone: | [phone] | | | | | | [phone] | Fax: | | | | | | Fax: | [phone] | | | | | | [phone] | | +--------+ + + + + + Encounter Details +--------+---------+ + + + | Date | Type | Department | Care Team | Description | +--------+---------+ + + + | 09/17/ | Office | Neurosurgery at | Casimiro Payton MD | Pseudotumor cerebri | | 2010 | Visit | [facility] [address] | [address] | (Primary Dx) | | | | Ave Mailcode: CH8N | [place], [place] | | | | | [facility] | [address] | | | | | and Healing, | [phone] | | | | | [facility] | | | | | | Floor [place], [place] | | | | | | [address] | | | | | | [phone] | | | +--------+---------+ + + + [...] soon. I spent more than 15 minutes [id number] with the patient of which greater than 50% was sp ent counseling the patient regarding the shunt removal, indications and venous sinus stent a ngioplasty. Since her shunt is brent effective now she will need narcotics for headache and he r PCP should manage that. CASIMIRO PAYTON MD NEUROSURGERY [address] Mailcode: Ch8n [facility] [address] documented in this encou nter Plan of Treatment Not on filedocumented as of this encounter Visit Diagnoses + + | Diagnosis | + + | Pseudotumor cerebri - Primary Benign intracranial hypertension | + + documented in this encounter
--- OUTSIDE RECORDS SUMMARY | ~2019-11-02 | XMS | Encounter Summary ---
Demographics + + + | Address | [address] | | | [place] [address] | + + + | Home Phone [...] + + + | Author | [place] [facility] | + + + | Organization | [facility] [employer] [facility] | + [...] Team Providers + +------+ + | Care Third Shift Lieutenant Name | Role | Phone | + [...] [address] | MD [address] | | | | | [place] Mailcode: CH8N | [address] [address] | | | | | [facility] | Rd [place], [place] | | | | | and Healing, | [address] | | | | | | [phone] | | | | | Floor [place], [place] | | | | | | [address] | | | | | | [phone] | | | +--------+ + + + [...]
--- OUTSIDE RECORDS SUMMARY | ~2019-11-02 | XMS | Encounter Summary ---
Demographics + + + | Address | [address] | | | [place] [address] | + + + | Home Phone [...] Organization | [facility] [...] Team Providers + +------+ + | Care Helper Shear Operator Name | Role | Phone | + +------+ + PCP | Unavailable | + +------+ + Encounter Details +--------+ + + + + | Date | Type | Department | Care Team | Description | +--------+ + + + + | 10/29/ | Hospital | [facility] | | | | 1991 | Encounter | MED CTR EMERGENCY | | | | | | CENTER [address] | | | | | | [place] | | | | | | [address] | | | | | | [phone] | | | +--------+ + + + [...]
--- OUTSIDE RECORDS SUMMARY | ~2019-11-02 | XMS | Encounter Summary ---
Demographics + + + | Address | [address] | | | [place] [address] | + + + | Home Phone [...] + | Organization | [facility] | | [...] Providers + +------+ + | Care Tube Mill Operator Name | Role | Phone | + +------+ + PCP | Unavailable | + +------+ + Encounter Details +--------+ + + + + | Date | Type | Department | Care Team | Description | +--------+ + + + + | 11/22/ | Hospital | [facility] | | | | [facility] | Encounter | [facility] EM[facility] | | | | | | CENTER [address] | | | | | | [place] | | | | | | [address] | | | | | | [phone] | | | +--------+ + + + [...]
--- OUTSIDE RECORDS SUMMARY | ~2019-11-02 | XMS | Encounter Summary ---
Demographics + + + | Address | [address] | | | [place] [address] | + + + | Home Phone [...] | Organization | [facility] | | | and [...] Providers + +------+ + | Care Pulp Mixer Name | Role | Phone | + +------+ + PCP | Unavailable | + +------+ + Encounter Details +--------+ + + + + | Date | Type | Department | Care Team | Description | +--------+ + + + + | 05/18/ | Hospital | [facility] | | | | 1991 | Encounter | [facility] | | | | | | HEALTH [facility] [address] | | | | | | [place], | | | | | | [place] [address] | | | | | | [phone] | | | +--------+ + + + [...]
--- OUTSIDE RECORDS SUMMARY | ~2019-11-02 | XMS | Encounter Summary ---
Demographics + + + | Address | [address] | | | [place] [address] | + + + | Home Phone [...] + + + | Author | [place] [employer] [facility] | + + + | Organization | [facility] [employer] [facility] [...] Team Providers + +------+ + | Care Scientific Software Developer Name | Role | Phone | [...] | | | | | hypertension | [place], [place] | [place], [place] | | | | | Procedures | [address] | [address] | | | | | REQUEST TO | Phone: | Phone: | | | | | SURGERY | [phone] | [phone] | | | | | FLEXOGRAPHIC PRESS HELPER | Fax: | Fax: | | | | | [place] IN[facility]ALL | [phone] | [phone] | | | | | SPINAL | [...] [place], [place] | | | | | [facility] | [address] | | | | | and [place], | [phone] | | | | | [facility] | | | | | | Floor [place], [place] | | | | | | [address] | | | | | | [phone] | | | +--------+ + + + [...]
--- OUTSIDE RECORDS SUMMARY | ~2019-11-02 | XMS | Encounter Summary ---
Demographics + + + | Address | [address] | | | [place] [address] | + + + | Home Phone [...] + + | Author | [place] [employer] [facility] | + + + | Organization | [facility] [employer] [facility] [...] Team Providers + +------+ + | Care Rehabilitation Manager Name | Role | Phone | [...] Cerebri | | 2006 | Visit | [place] | | | | | | Photography at | | | | | | [address] | | | | | | [address] | | | | | | Mailcode: PATTI | | | | | | [place], [place] | | | | | | [address] | | | | | | [phone] | | | +--------+---------+ + + + [...] PM DINOAnnabella Au was seen in the [facility] [place] [facility]Ultrasound Department today, 11/30/2006, for ultrasound OU [...]
--- OUTSIDE RECORDS SUMMARY | ~2019-11-02 | XMS | Encounter Summary ---
Demographics + + + | Address | [address] | | | [place] [address] | + + + | Home Phone [...] + + + | Author | [place] [employer] [facility] | + + + | Organization | [facility] [employer] [facility] | + [...] Team Providers + +------+ + | Care Preliminary School Psychologist Name | Role | Phone | + [...] | Headache | | 2005 | | [place]/Ophthalmol | MD Jordin | | | | | leon at [facility] [address] | | | | | | [address] Mailcode: | | | | | | CH11P [facility] | | | | | | Health and Healing, | | | | | | Building | | | | | | Floor [place], [place] | | | | | | [address] | | | | | | [phone] | | | +--------+ + + + [...]
--- OUTSIDE RECORDS SUMMARY | ~2019-11-02 | XMS | Encounter Summary ---
Demographics + + + | Address | [address] | | | [place] [address] | + + + | Home Phone [...] Organization | [facility] | | | and [place] | + + + | Address | Unknown | + + + | Phone | Unavailable | + + + Support + + +---------+ + | Name | Relationship | Address | Phone | + + +---------+ + | Saad Chmaorro | ECON | Unknown | | + + +---------+ + Care Team Providers + +------+ + | Care Christmas Bell Ringer Name | Role | Phone | + +------+ + PCP | Unavailable | + +------+ + Encounter Details +--------+ + + + + | Date | Type | Department | Care Team | Description | +--------+ + + + + | 07/21/ | Hospital | [facility] | | | | 1990 | Encounter | MED CTR EMERGENCY | | | | | | CENTER [address] | | | | | | [place] | | | | | | [address] | | | | | | [phone] | | | +--------+ + + + [...]
--- OUTSIDE RECORDS SUMMARY | ~2019-11-02 | XMS | Encounter Summary ---
Demographics + + + | Address | [address] | | | [place] [address] | + + + | Home Phone [...] Organization | [facility] | | [...] Team Providers + +------+ + | Care Carbide Operator Name | Role | Phone | + +------+ + PCP | Unavailable | + +------+ + Encounter Details +--------+ + + + + | Date | Type | Department | Care Team | Description | +--------+ + + + + | 09/20/ | Hospital | [facility] | | | | 1991 | Encounter | [facility] | | | | | | HEALTH [facility] [address] | | | | | | [place], | | | | | | [place] [address] | | | | | | [phone] | | | +--------+ + + + [...]
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
--- OUTSIDE RECORDS SUMMARY | ~2019-11-02 | XMS | Encounter Summary ---
Demographics + + + | Address | [address] | | | [place] [address] | + + + | Home Phone [...] Organization | [facility] | [...] Team Providers + +------+ + | Care Aboriginal Education Teacher Name | Role | Phone [...] left hand | [address] | | | | n | Weakness of | [address] | [place], | | | | | both hands | [place], | [place] [address] | | | | | [place] left | [place] [address] | Phone: | | | | | wrist Pain | Phone: | [phone] | | | | | of right | [phone] | Fax: | | | | | thumb | Fax: | [phone] | | | | | Trigger | [phone] | | | | | | finger of | | | | | | | right thumb | | | | | | | Procedures | | | | | | | NH MOTOR | | | | | | | &/SENS > | | | | | | | NRV CNDJ | | | | | | | PRECONF | | | | | | | ELTRODE LIMB | | | | | | | NH NEEDLE | | | | | | [...] | | | | | Trigger | [address] | [place] | | | | | finger of | [place], | [place] | | | | | right thumb | [place] [address] | [address] | | | | | | Phone: | Phone: | | | | | | [phone] | [phone] | | | | | | Fax: | Fax: | | | | | | [phone] | [phone] | +--------+ + + + + + [...] | | Rehabilitatio | tunnel | PA-C [address] | [address] | | | | n | syndrome on | | [place], | | | | | left | [place] | [place] [address] | | | | | | WAY | Phone: | | | | | | [place], | [phone] | | | | | | [place] [address] | Fax: | | | | | | Phone: | [phone] | | | | | | [phone] | | | | | | | Fax: | | | | | | | [phone] | | +--------+--------+ + + + + Encounter Details +--------+---------+ + + + | Date | Type | Department | Care Team | Description | +--------+---------+ + + + | 01/03/ | Office | [place] | Amanuel Jennings, | Numbness of left | | 2019 | Visit | PHYSIATRY [address] | MD [address] | hand (Primary Dx); | | | | [place], | [place], [place] | Weakness of both | | | | [place] [address] | [address] | hands; Mass of left | | | | [phone] | | wrist; Pain of right | [...] encounter Patient Instructions Patient Instructions Adelaide Santa, Process Control Manager - 01/03/2019 1:00 PM Rina chowdhury o [...] Acute low back pain Antisocial personality disorder ([facility]) Anxiety disorder Asthma Benign essential [...] wrist dorsiflexion , finger abduction, and right scrap wheeler. 4/5 hand scrap wheeler on the left Reflexes: 2+ normal and [...] scribed by in my presence, Adelaide Santa, Process Control Manager and are both accurate and comp lete. [...]
--- OUTSIDE RECORDS SUMMARY | ~2019-11-02 | XMS | Encounter Summary ---
Demographics + + + | Address | [address] | | | [place] [address] | + + + | Home Phone [...] + + + | Author | [place] [employer] [facility] | + + + | Organization | [facility] AMS [employer] [facility] [...] Providers + +------+ + | Care District Director Name | Role | Phone | [...] | | | Ave Mailcode: CH8N | [place], [place] | | | | | [facility] | [address] | | | | | and Healing, | [phone] | | | | | [facility] | | | | | | Floor [place], [place] | | | | | | [address] | | | | | | [phone] | | | +--------+ + + + [...]
--- OUTSIDE RECORDS SUMMARY | ~2019-11-02 | XMS | Encounter Summary ---
Demographics + + + | Address | [address] | | | [place] [address] | + + + | Home Phone [...] + | Organization | [facility] | | [...] Providers + +------+ + | Care Lining Parts Sewer Name | Role | Phone | + +------+ + PCP | Unavailable | + +------+ + Encounter Details +--------+ + + + + | Date | Type | Department | Care Team | Description | +--------+ + + + + | 10/10/ | Hospital | [facility] | | | | 1991 | Encounter | MED CTR WOMENS | | | | | | HEALTH SV [address] | | | | | | [place], | | | | | | [place] [address] | | | | | | [phone] | | | +--------+ + + + [...]
--- OUTSIDE RECORDS SUMMARY | ~2019-11-02 | XMS | Encounter Summary ---
Demographics + + + | Address | [address] | | | [place] [address] | + + + | Home Phone [...] + + + | Author | [place] [employer] [facility] | + + + | Organization | [facility] [email or web address] [facility] | + + + | Address | Unknown | + + + | Phone | Unavailable | + + + Support + + +---------+ + | Name | Relationship | Address | Phone | + + +---------+ + | Ruby Au | ECON | Unknown | | + + +---------+ + Care Team Providers + +------+ + | Care Police Liaison Officer Name | Role | Phone [...] Other | | 2005 | | [facility] | [address] | | | | | [address] Mailcode:OP14B | [place], [place] | | | | | [facility] | [address] | | | | | [place], [place] | | | | | | [address] | | | | | | [phone] | | | +--------+ + + + [...]
--- OUTSIDE RECORDS SUMMARY | ~2019-11-02 | XMS | Encounter Summary ---
Demographics + + + | Address | [address] | | | [place] [address] | + + + | Home Phone [...] + + + | Organization | and [facility] | | [...] Team Providers + +------+ + | Care Detective Sergeant Name | Role | Phone | + +------+ + PCP | Unavailable | + +------+ + Encounter Details +--------+ + + + + | Date | Type | Department | Care Team | Description | +--------+ + + + + | 10/27/ | Hospital | [facility] | | | | 1990 | Encounter | MED CTR EMERGENCY | | | | | | CENTER [address] | | | | | | [place] | | | | | | [address] | | | | | | [phone] | | | +--------+ + + + [...]
--- OUTSIDE RECORDS SUMMARY | ~2019-11-02 | XMS | Encounter Summary ---
Demographics + + + | Address | [address] | | | [place] [address] | + + + | Home Phone [...] + + | Author | [place] [employer] [facility] | + + + | Organization | [facility] Loku [facility] | + [...] Providers + +------+ + | Care Freight Delivery Driver Name | Role | Phone | [...] | Headache | | 2005 | | [place]/Ophthalmol | MD Jordin | | | | | leon at [facility] [address] | | | | | | [address] Mailcode: | | | | | | CH11P [facility] | | | | | | Health and Healing, | | | | | | Building | | | | | | Floor [place], [place] | | | | | | [address] | | | | | | [phone] | | | +--------+ + + + [...]
--- OUTSIDE RECORDS SUMMARY | ~2019-11-02 | XMS | Encounter Summary ---
[...] + + + | Author | [place] [employer] [facility] | + + + | Organization | [facility] [employer] [facility] | + [...] Team Providers + +------+ + | Care Palletizer Operator Name | Role | Phone | [...] Cerebri; | | 2005 | Visit | [place] | | Common Migraine | | | | Neuro-Ophthalmology | | without Mention of | | | | [address] | | Intractable Migraine | | | | Blvd Mailcode: CEI | | | | | | Mailcode: [facility] | | | | | | [place], [place] | | | | | | [address] | | | | | | [phone] | | | +--------+---------+ + + + [...] 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
--- OUTSIDE RECORDS SUMMARY | ~2019-11-02 | XMS | Encounter Summary ---
Demographics + + + | Address | [address] | | | [place] [address] | + + + | Home Phone [...] + + + | Author | [place] [employer] [facility] | + + + | Organization | [facility] Narrative Science [facility] | + [...] Providers + +------+ + | Care Head Soft Sugar Operator Name | Role | Phone | [...] Headache | | 2007 | | [facility] | [address] | | | | | [address] Mailcode: PV01 | [place], [place] | | | | | Physician's | [address] | | | | | [place], | [phone] | | | | | [place] [address] | | | | | | [phone] | | | +--------+ + + + [...]
--- OUTSIDE RECORDS SUMMARY | ~2019-11-02 | XMS | Encounter Summary ---
Demographics + + + | Address | [address] | | | [place] [address] | + + + | Home Phone [...] + | Organization | [facility] | [...] Providers + +------+ + | Care Patient Care Specialist Name | Role | Phone | + +------+ + PCP | Unavailable | + +------+ + Encounter Details +--------+ + + + + | Date | Type | Department | Care Team | Description | +--------+ + + + + | 07/07/ | Hospital | [facility] | | | | 1991 | Encounter | MED CTR EMERGENCY | | | | | | CENTER [address] | | | | | | [place] | | | | | | [address] | | | | | | [phone] | | | +--------+ + + + [...]
--- OUTSIDE RECORDS SUMMARY | ~2019-11-02 | XMS | Encounter Summary ---
Demographics + + + | Address | [address] | | | [place] [address] | + + + | Home Phone [...] | Organization | [facility] | [...] Team Providers + +------+ + | Care Paving Foreman Name | Role | Phone | + +------+ + PCP | Unavailable | + +------+ + Encounter Details +--------+ + + + + | Date | Type | Department | Care Team | Description | +--------+ + + + + | 01/01/ | Hospital | [facility] | [place], | | | 2009 | Encounter | MED CTR EMERGENCY | Brad Yu MD [address] | | | | | [place] [address] | [facility] | | | | | [place] | [place] [address] | | | | | [address] | [phone] | | | | | [phone] | | | +--------+ + + + [...]
--- OUTSIDE RECORDS SUMMARY | ~2019-11-02 | XMS | Encounter Summary ---
Demographics + + + | Address | [address] | | | [place] [address] | + + + | Home Phone [...] [facility] | | [...] Providers + +------+ + | Care Building Appraiser Name | Role | Phone | + +------+ + PCP | Unavailable | + +------+ + Encounter Details +--------+ + + + + | Date | Type | Department | Care Team | Description | +--------+ + + + + | 06/19/ | Hospital | [facility] | | | | 1991 | Encounter | MED CTR WOMENS | | | | | | HEALTH SV [address] | | | | | | [place], | | | | | | [place] [address] | | | | | | [phone] | | | +--------+ + + + [...]
--- OUTSIDE RECORDS SUMMARY | ~2019-11-02 | XMS | Encounter Summary ---
Demographics + + + | Address | [address] | | | [place] [address] | + + + | Home Phone [...] | Organization | [facility] | [...] Providers + +------+ + | Care Terminal Computer Operator Name | Role | Phone | + +------+ + PCP | Unavailable | + +------+ + Encounter Details +--------+ + + + + | Date | Type | Department | Care Team | Description | +--------+ + + + + | 06/10/ | Hospital | [facility] | | | | 1991 | Encounter | MED CTR WOMENS | | | | | | HEALTH SV [address] | | | | | | [place], | | | | | | [place] [address] | | | | | | [phone] | | | +--------+ + + + [...]
--- OUTSIDE RECORDS SUMMARY | ~2019-11-02 | XMS | Encounter Summary ---
Demographics + + + | Address | [address] | | | [place] [address] | + + + | Home Phone [...] + + | Organization | [facility] | | [...] Team Providers + +------+ + | Care Money Examiner Name | Role | Phone | + +------+ + PCP | Unavailable | + +------+ + Encounter Details +--------+ + + + + | Date | Type | Department | Care Team | Description | +--------+ + + + + | 04/20/ | Hospital | [facility] | | | | 1995 | Encounter | MED CTR EMERGENCY | | | | | | CENTER [address] | | | | | | [place] | | | | | | [address] | | | | | | [phone] | | | +--------+ + + + [...]
--- OUTSIDE RECORDS SUMMARY | ~2019-11-02 | XMS | Encounter Summary ---
Demographics + + + | Address | [address] | | | [place] [address] | + + + | Home Phone [...] | Organization | [facility] | | | and [place] [...] Team Providers + +------+ + | Care Coat Ironer Hand Name | Role | Phone | + +------+ + PCP | Unavailable | + +------+ + Encounter Details +--------+ + + + + | Date | Type | Department | Care Team | Description | +--------+ + + + + | 09/27/ | Hospital | [facility] | | | | 1991 | Encounter | MED CTR WOMENS | | | | | | HEALTH SV [address] | | | | | | [place], | | | | | | [place] [address] | | | | | | [phone] | | | +--------+ + + + [...]
--- OUTSIDE RECORDS SUMMARY | ~2019-11-02 | XMS | Encounter Summary ---
Demographics + + + | Address | [address] | | | [place] [address] | + + + | Home Phone [...] + | Organization | [facility] | [...] Providers + +------+ + | Care Automatic Grinding Machine Operator Name | Role | Phone | + +------+ + PCP | Unavailable | + +------+ + Encounter Details +--------+ + + + + | Date | Type | Department | Care Team | Description | +--------+ + + + + | 10/12/ | Hospital | [facility] | | | | 1991 | Encounter | MED CTR WOMENS | | | | | | HEALTH SV [address] | | | | | | [place], | | | | | | [place] [address] | | | | | | [phone] | | | +--------+ + + + [...]
--- OUTSIDE RECORDS SUMMARY | ~2019-11-02 | XMS | Encounter Summary ---
Demographics + + + | Address | [address] | | | [place] [address] | + + + | Home Phone [...] + + + | Author | [place] [employer] [facility] | + + + | Organization | [facility] [employer] [facility] | + [...] Team Providers + +------+ + | Care Balance Wheel Motion Inspector Name | Role | Phone | + +------+ + | Pedro Luis Sams MD | PCP | | + +------+ + Encounter Details +--------+ + + + + | Date | Type | Department | Care Team | Description | +--------+ + + + + | 10/19/ | Telephone | [facility] | Funmilayo Osorio MD | | | 2010 | | [place]/Ophthalmol | [address] | | | | | leon at [facility] [address] | [place], [place] | | | | | [address] Mailcode: | [address] | | | | | [address] [facility] | [phone] | | | | | Health and Healing, | | | | | | [facility] | | | | | | [place], [place] | | | | | | [address] | | | | | | [phone] | | | +--------+ + + + [...]
--- OUTSIDE RECORDS SUMMARY | ~2019-11-02 | XMS | Encounter Summary ---
Demographics + + + | Address | [address] | | | [place] [address] | + + + | Home Phone [...] + + + | Author | [place] [employer] [facility] | + + + | Organization | [facility] [employer] [facility] [...] Providers + +------+ + | Care Market Research Intern Name | Role | Phone | [...] | | | [address] Mailcode: [id number] | [place], [place] | | | | | [place], [place] | [address] | | | | | [address] | [phone] | | | | | [phone] | | | +--------+ + + + [...]
--- OUTSIDE RECORDS SUMMARY | ~2019-11-02 | XMS | Encounter Summary ---
Demographics + + + | Address | [address] | | | [place] [address] | + + + | Home Phone [...] + + + | Author | [place] [employer] [facility] | + + + | Organization | [facility] [employer] [facility] | + + + | Address | Unknown | + + + | Phone | Unavailable | + + + Support + + +---------+ + | Name | Relationship | Address | Phone | + + +---------+ + | Ruby Au | ECON | Unknown | | + + +---------+ + Care Team Providers + +------+ + | Care Joinery Patternmaker Name | Role | Phone | [...] | | | Ave Mailcode: CH8N | [place], [place] | | | | | [facility] | [address] | | | | | and Te[place], | [phone] | | | | | [facility] | | | | | | Floor [place], [place] | | | | | | [address] | | | | | | [phone] | | | +--------+ + + + [...]
--- OUTSIDE RECORDS SUMMARY | ~2019-11-02 | XMS | Encounter Summary ---
Demographics + + + | Address | [address] | | | [place] [address] | + + + | Home Phone [...] + + | Author | [place] [employer] [facility] | + + + | Organization | [facility] [employer] [facility] | [...] Team Providers + +------+ + | Care Strap Cutter Name | Role | Phone | [...] Refill Request | | 2007 | | [facility] [address] | [place] | | | | | [address] Mailcode: CH8N | Neurosurgery [address] | | | | | [facility] | [address] | | | | | and Healing, | [place], [place] | | | | | Building | [address] | | | | | Floor [place], [place] | | | | | | [address] | | | | | | [phone] | | | +--------+--------+ + + + [...]
--- OUTSIDE RECORDS SUMMARY | ~2019-11-02 | XMS | Encounter Summary ---
Demographics + + + | Address | [address] | | | [place] [address] | + + + | Home Phone [...] + + | Author | [place] [employer] [facility] | + + + | Organization | [facility] [employer] [facility] | + + + | Address | Unknown | + + + | Phone | Unavailable | + + + Support + + +---------+ + | Name | Relationship | Address | Phone | + + +---------+ + | Ruby Au | ECON | Unknown | | + + +---------+ + Care Team Providers + +------+ + | Care Squeegee Finisher Name | Role | Phone | + +------+ + | Pedro Luis Sams MD | PCP | | + +------+ + Encounter Details +--------+ + + + + | Date | Type | Department | Care Team | Description | +--------+ + + + + | 03/10/ | Telephone | Neurosurgery at | Steph Reyes MD | | | 2012 | | [facility] [address] | | | | | | [address] Mailcode: CH8N | | | | | | [facility] | | | | | | and Healing, | | | | | | Building [address] | | | | | | Floor [place], [place] | | | | | | [address] | | | | | | [phone] | | | +--------+ + + + [...]
--- OUTSIDE RECORDS SUMMARY | ~2019-11-02 | XMS | Encounter Summary ---
Demographics + + + | Address | [address] | | | [place] [address] | + + + | Home Phone [...] + + + | Author | [place] [employer] [facility] | + + + | Organization | [facility] [employer] [facility] [...] Team Providers + +------+ + | Care Caser Up Name | Role | Phone | + +------+ + | Brenden Benavides MD | PCP | | + +------+ + Encounter Details +--------+ + + + + | Date | Type | Department | Care Team | Description | +--------+ + + + + | 02/22/ | Telephone | [facility] | Hay Hughes MD [address] | | | 2006 | | [place] | [address] | | | | | Oculoplastics at | [place], [place] | | | | | [facility] | [address] | | | | | [address] | [phone] | | | | | Mailcode: PATTI | | | | | | [place], [place] | | | | | | [address] | | | | | | [phone] | | | +--------+ + + + [...]
--- OUTSIDE RECORDS SUMMARY | ~2019-11-02 | XMS | Encounter Summary ---
Demographics + + + | Address | [address] | | | [place] [address] | + + + | Home Phone [...] + + + | Author | [place] [employer] [facility] | + + + | Organization | [facility] [employer] [facility] | + [...] Team Providers + +------+ + | Care Test Baker Name | Role | Phone | [...] | | | Ave Mailcode: CH8N | [place], [place] | | | | | [facility] | [address] | | | | | and Healing, | [phone] | | | | | [facility] | | | | | | Floor [place], [place] | | | | | | [address] | | | | | | [phone] | | | +--------+ + + + [...]
--- OUTSIDE RECORDS SUMMARY | ~2019-11-02 | XMS | Encounter Summary ---
Demographics + + + | Address | [address] | | | [place] [address] | + + + | Home Phone [...] + | Organization | [facility] [...] + +------+ + | Care Director Of Psychiatry Name | Role | Phone | + +------+ + PCP | Unavailable | + +------+ + Encounter Details +--------+ + + + + | Date | Type | Department | Care Team | Description | +--------+ + + + + | 08/12/ | Hospital | [facility] | Jenn Oreilly, | | | 2012 | Encounter | HOSPITAL EMERGENCY | [facility] [address] | | | | | CENTER [address] | [place] | | | | | [place] | [address] | | | | | [address] | | | | | | [phone] | | | +--------+ + + + [...]
--- OUTSIDE RECORDS SUMMARY | ~2019-11-02 | XMS | Encounter Summary ---
Demographics + + + | Address | [address] | | | [place] [address] | + + + | Home Phone [...] | Organization | [facility] | | | [...] Team Providers + +------+ + | Care Directional Driller Name | Role | Phone | + +------+ + PCP | Unavailable | + +------+ + Encounter Details +--------+ + + + + | Date | Type | Department | Care Team | Description | +--------+ + + + + | 07/17/ | Hospital | [facility] | Domingo Darby, | | | 2010 | Encounter | HEART MED CTR | [address] | | | | | EMERGENCY CENTER | [place] [address] | | | | | [address] | [phone] | | | | | [place], [place] | | | | | | [address] | | | | | | [phone] | | | +--------+ + + + [...]
--- OUTSIDE RECORDS SUMMARY | ~2019-11-02 | XMS | Encounter Summary ---
Demographics + + + | Address | [address] | | | [place] [address] | + + + | Home Phone [...] + + + | Author | [place] [employer] [facility] | + + + | Organization | [facility] [employer] [facility] | + [...] Providers + +------+ + | Care Associate Attorney Name | Role | Phone | [...] | | | Ave Mailcode: CH8N | [place], [place] | | | | | [facility] | [address] | | | | | and Teagan, | [phone] | | | | | [facility] | | | | | | Floor [place], [place] | | | | | | [address] | | | | | | [phone] | | | +--------+ + + + [...]
--- OUTSIDE RECORDS SUMMARY | ~2019-11-02 | XMS | Encounter Summary ---
Demographics + + + | Address | [address] | | | [place] [address] | + + + | Home Phone [...] + | Organization | [facility] | | | [...] Providers + +------+ + | Care Retail Sales Director Name | Role | Phone | + +------+ + PCP | Unavailable | + +------+ + Encounter Details +--------+ + + + + | Date | Type | Department | Care Team | Description | +--------+ + + + + | 06/22/ | Hospital | [facility] | Yovanny Suazo, | | | 1991 | Encounter | MED CTR WOMENS | MD [address] | | | | | [facility] [address] | [address] | | | | | [place], | [place] [address] | | | | | [place] [address] | [phone] | | | | | [phone] | | | +--------+ + + + [...]
--- OUTSIDE RECORDS SUMMARY | ~2019-11-02 | XMS | Encounter Summary ---
Demographics + + + | Address | [address] | | | [place] [address] | + + + | Home Phone [...] + + | Author | [place] [employer] [facility] | + + + | Organization | [facility] [employer] [facility] | + [...] Providers + +------+ + | Care Law Office Assistant Name | Role | Phone | [...] [address] | | | | | [place] | [place], [place] | | | | | [place], [place] | [address] | | | | | [address] | [phone] | | | | | [phone] | | | +--------+ + + + [...]
--- OUTSIDE RECORDS SUMMARY | ~2019-11-02 | XMS | Encounter Summary ---
Demographics + + + | Address | [address] | | | [place] [address] | + + + | Home Phone [...] Organization | [facility] | | | [...] Team Providers + +------+ + | Care Incident Response Analyst Name | Role | Phone | + +------+ + PCP | Unavailable | + +------+ + Encounter Details +--------+ + + + + | Date | Type | Department | Care Team | Description | +--------+ + + + + | 03/03/ | Emergency | [facility] | Artis Reyes DO | Pain, abdominal, | | 2012 | | MEDICAL CENTER | [address] | unknown etiology | | | | EMERGENCY CENTER | [place], [place] | | | | | [address] [facility] | [address] | | | | | [place], [place] | [phone] | | | | | [address] | | | | | | [phone] | | | +--------+ + + + [...]
--- OUTSIDE RECORDS SUMMARY | ~2019-11-02 | XMS | Encounter Summary ---
Demographics + + + | Address | [address] | | | [place] [address] | + + + | Home Phone [...] | Organization | [facility] | [...] Providers + +------+ + | Care Supervisor Speech Name | Role | Phone | + +------+ + PCP | Unavailable | + +------+ + Encounter Details +--------+ + + + + | Date | Type | Department | Care Team | Description | +--------+ + + + + | 01/15/ | Hospital | [facility] | Marine Oden | | | 2011 | Encounter | MED CTR EMERGENCY | DO Gaurang Drake | | | | | [address] | [place], [place] | | | | | [place], [place] | [address] | | | | | [address] | | | | | | [phone] | | | +--------+ + + + [...]
--- OUTSIDE RECORDS SUMMARY | ~2019-11-02 | XMS | Encounter Summary ---
Demographics + + + | Address | [address] | | | [place] [address] | + + + | Home Phone [...] | Organization | [facility] | | [...] Providers + +------+ + | Care Motorcycle Repair Shop Supervisor Name | Role | Phone | + +------+ + PCP | Unavailable | + +------+ + Encounter Details +--------+ + + + + | Date | Type | Department | Care Team | Description | +--------+ + + + + | 03/29/ | Hospital | [facility] | | | | 2006 | Encounter | MED CTR XRAY [address] | | | | | | [address] | | | | | | [place] [address] | | | | | | [phone] | | | +--------+ + + + [...]
--- OUTSIDE RECORDS SUMMARY | ~2019-11-02 | XMS | Encounter Summary ---
Demographics + + + | Address | [address] | | | [place] [address] | + + + | Home Phone [...] | Organization | [facility] | [...] Team Providers + +------+ + | Care Seasonal Customer Service Associate Name | Role | Phone | + +------+ + PCP | Unavailable | + +------+ + Encounter Details +--------+ + + + + | Date | Type | Department | Care Team | Description | +--------+ + + + + | 07/19/ | Hospital | [facility] | Vern Rooney, | | | 1990 - | Encounter | MED CTR MED ONC | [address] | | | | | [address] | [place] | | | 07/21/ | | [place] [address] | [address] | | | 1990 | | [phone] | | | +--------+ + + + [...]
--- OUTSIDE RECORDS SUMMARY | ~2019-11-02 | XMS | Encounter Summary ---
Demographics + + + | Address | [address] | | | [place] [address] | + + + | Home Phone [...] Organization | [facility] [...] Providers + +------+ + | Care Car Body Mechanic Name | Role | Phone | + +------+ + PCP | Unavailable | + +------+ + Encounter Details +--------+ + + + + | Date | Type | Department | Care Team | Description | +--------+ + + + + | 04/18/ | Hospital | [facility] | | | | 1991 | Encounter | MED CTR EMERGENCY | | | | | | CENTER [address] | | | | | | [place] | | | | | | [address] | | | | | | [phone] | | | +--------+ + + + [...]
--- OUTSIDE RECORDS SUMMARY | ~2019-11-02 | XMS | Encounter Summary ---
Demographics + + + | Address | [address] | | | [place] [address] | + + + | Home Phone [...] Organization | [facility] | | [...] Providers + +------+ + | Care Metal Hanging Supervisor Name | Role | Phone | + +------+ + PCP | Unavailable | + +------+ + Encounter Details +--------+ + + + + | Date | Type | Department | Care Team | Description | +--------+ + + + + | 07/07/ | Hospital | [facility] | | | | 1991 | Encounter | MED CTR EMERGENCY | | | | | | CENTER [address] | | | | | | [place] | | | | | | [address] | | | | | | [phone] | | | +--------+ + + + [...]
--- OUTSIDE RECORDS SUMMARY | ~2019-11-02 | XMS | Encounter Summary ---
Demographics + + + | Address | [address] | | | [place] [address] | + + + | Home Phone [...] Organization | [facility] | [...] Providers + +------+ + | Care Housing Officer Name | Role | Phone | [...] | | [address] [place] | [place] [address] | | | | | [address] | [phone] | | | | | [phone] | | | +--------+ + + + [...]
--- OUTSIDE RECORDS SUMMARY | ~2019-11-02 | XMS | Encounter Summary ---
Demographics + + + | Address | [address] | | | [place] [address] | + + + | Home Phone [...] + + + | Author | [place] [employer] [facility] | + + + | Organization | [facility] [employer] [facility] [...] Team Providers + +------+ + | Care Crossword Puzzle Maker Name | Role | Phone | [...] | | | Ave Mailcode: CH8N | [place], [place] | | | | | [facility] | [address] | | | | | and Healing, | [phone] | | | | | [facility] | | | | | | Floor [place], [place] | | | | | | [address] | | | | | | [phone] | | | +--------+ + + + [...]
--- OUTSIDE RECORDS SUMMARY | ~2019-11-02 | XMS | Encounter Summary ---
Demographics + + + | Address | [address] | | | [place] [address] | + + + | Home Phone [...] + + | Author | [place] [employer] Science [facility] | + + + | Organization | [facility] [employer] [facility] | + [...] Providers + +------+ + | Care Clinical Courier Name | Role | Phone | + [...] | 2007 | Visit | [facility] [address] | [address] | (Primary Dx) | | | | Ave Mailcode: CH8N | [place], [place] | | | | | [facility] | [address] | | | | | and Healing, | [phone] | | | | | [facility] | | | | | | Floor [place], [place] | | | | | | [address] | | | | | | [phone] | | | +--------+---------+ + + + [...] wanted to have LP shunt instead of MANAGER RESORT shunt because she d oes not weant [...]
--- OUTSIDE RECORDS SUMMARY | ~2019-11-02 | XMS | Encounter Summary ---
Demographics + + + | Address | [address] | | | [place] [address] | + + + | Home Phone [...] + + + | Author | [place] [employer] Science [facility] | + + + | Organization | [facility] [employer] Science [facility] | + [...] + +------+ + | Care Software Engineering Specialist Name | Role | Phone | [...] | | | Ave Mailcode: CH8N | [place], [place] | | | | | [facility] | [address] | | | | | and Healing, | [phone] | | | | | | | | | | | Floor [place], [place] | | | | | | [address] | | | | | | [phone] | | | +--------+ + + + [...]
--- OUTSIDE RECORDS SUMMARY | ~2019-11-02 | XMS | Encounter Summary ---
Demographics + + + | Address | [address] | | | [place] [address] | + + + | Home Phone [...] + + + | Author | [place] [employer] [facility] | + + + | Organization | [facility] [employer] [facility] | + + [...] Providers + +------+ + | Care Bus Mechanic Name | Role | Phone | [...] Rd | | | | | | [place], [place] | | | | | | [address] | | | +--------+ + + + [...]
--- OUTSIDE RECORDS SUMMARY | ~2019-11-02 | XMS | Encounter Summary ---
Demographics + + + | Address | [address] | | | [place] [address] | + + + | Home Phone [...] Organization | [facility] | | | [...] Team Providers + +------+ + | Care Pega Developer Name | Role | Phone | + +------+ + PCP | Unavailable | + +------+ + Encounter Details +--------+ + + + + | Date | Type | Department | Care Team | Description | +--------+ + + + + | 07/10/ | Emergency | [facility] | Perry Flores | Headache; Benign | | 2012 | | MEDICAL CENTER | [place] [address] | intracranial | | | | EMERGENCY CENTER | [address] | hypertension; Back | | | | [address] | [place] [address] | pain | | | | [place], [place] | [phone] | | | | | [address] | | | | | | [phone] | | | +--------+ + + + [...] + + | ANNABELLA Waters [facility] CT HEAD WO CONTRAST HISTORY: [...]
--- OUTSIDE RECORDS SUMMARY | ~2019-11-02 | XMS | Encounter Summary ---
Demographics + + + | Address | [address] | | | [place] [address] | + + + | Home Phone [...] + + + | Author | [place] [employer] Science [facility] | + + + | Organization | [facility] [employer] Science [facility] | + [...] Providers + +------+ + | Care Senior Medical Writer Name | Role | Phone | [...] Refill Request | | 2006 | | [place] | [facility] | | | | | Oculoplastics at | Rd [place], [place] | | | | | [address] | [address] | | | | | [address] | | | | | | Mailcode: CEI | | | | | | [place], [place] | | | | | | [address] | | | | | | [phone] | | | +--------+ + + + [...]
--- OUTSIDE RECORDS SUMMARY | ~2019-11-02 | XMS | Encounter Summary ---
Demographics + + + | Address | [address] | | | [place] [address] | + + + | Home Phone [...] + + + | Author | [place] [employer] Science [facility] | + + + | Organization | [facility] [employer] [facility] | [...] Team Providers + +------+ + | Care Bumper Operator Name | Role | Phone | [...] | | [place] Mailcode:OP14B | [place], | | | | | [facility] | [place] [address] | | | | | [place], [place] | | | | | | [address] | | | | | | [phone] | | | +--------+ + + + [...]
--- OUTSIDE RECORDS SUMMARY | ~2019-11-02 | XMS | Encounter Summary ---
Demographics + + + | Address | [address] | | | [place] [address] | + + + | Home Phone [...] + + | Author | [place] [employer]_ [employer] Science [facility] | + + + | Organization | [facility] [employer] Science [facility] [...] Providers + +------+ + | Care Christmas Tree Farm Manager Name | Role | Phone [...] Neurosurgery [address] | | | | | [facility] | [address] | | | | | and Healing, | [place], [place] | | | | | [facility] | [address] | | | | | Floor [place], [place] | | | | | | [address] | | | | | | [phone] | | | +--------+ + + + [...]
--- OUTSIDE RECORDS SUMMARY | ~2019-11-02 | XMS | Encounter Summary ---
Demographics + + + | Address | [address] | | | [place] [address] | + + + | Home Phone [...] + + + | Author | [place] [employer] [facility] | + + + | Organization | [facility] Re Pet Science [facility] [...] Team Providers + +------+ + | Care Crime Analyst Name | Role | Phone | + +------+ + | Brenden Benavides MD | PCP | | + +------+ + Encounter Details +--------+ + + + + | Date | Type | Department | Care Team | Description | +--------+ + + + + | 01/05/ | Telephone | [facility] | Brad Currie MD | | | 2006 | | [place] | | | | | | Neuro-Ophthalmology | | | | | | [address] | | | | | | [place] Mailcode: CEI | | | | | | Mailcode: CEI | | | | | | [place], [place] | | | | | | [address] | | | | | | [phone] | | | +--------+ + + + [...]
--- OUTSIDE RECORDS SUMMARY | ~2019-11-02 | XMS | Encounter Summary ---
Demographics + + + | Address | [address] | | | [place] [address] | + + + | Home Phone [...] Organization | [facility] [...] +------+ + | Care Associate Professor Of Violin Name | Role | Phone | + +------+ + PCP | Unavailable | + +------+ + Encounter Details +--------+ + + + + | Date | Type | Department | Care Team | Description | +--------+ + + + + | 05/18/ | Hospital | [facility] | | | | 1991 | Encounter | MED CTR WOMENS | | | | | | HEALTH SV [address] | | | | | | [place], | | | | | | [place] [address] | | | | | | [phone] | | | +--------+ + + + [...]
--- OUTSIDE RECORDS SUMMARY | ~2019-11-02 | XMS | Encounter Summary ---
Demographics + + + | Address | [address] | | | [place] [address] | + + + | Home Phone [...] Organization | [facility] | | [...] Team Providers + +------+ + | Care Engraving Operator Name | Role | Phone | [...] [place] | | | | | | [address] | | | | | | [phone] | | | +--------+ + + + [...]
--- OUTSIDE RECORDS SUMMARY | ~2019-11-02 | XMS | Encounter Summary ---
Demographics + + + | Address | [address] | | | [place] [...] + + | Organization | [facility] | | [...] Providers + +------+ + | Care Pneumatic Drum Sander Name | Role | Phone | + +------+ + PCP | Unavailable | + +------+ + Encounter Details +--------+ + + + + | Date | Type | Department | Care Team | Description | +--------+ + + + + | 10/22/ | Hospital | [facility] | | | | 1991 - | Encounter | MED CTR [facility] | | | | | | [facility] [address] | | | | 10/24/ | | [address] [place], | | | | 1991 | | [place] [address] | | | | | | [phone] | | | +--------+ + + + [...]
--- OUTSIDE RECORDS SUMMARY | ~2019-11-02 | XMS | Encounter Summary ---
Demographics + + + | Address | [address] | | | [place] [address] | + + + | Home Phone [...] + + + | Author | [place] [employer] Science [facility] | + + + | Organization | [facility] [employer] Science [facility] | + [...] + +------+ + | Care Senior Oracle Database Administrator Name | Role | Phone [...] [place], [place] | | | | | [facility] | [address] | | | | | and Healing, | [phone] | | | | | [facility] | | | | | | Floor [place], [place] | | | | | | [address] | | | | | | [phone] | | | +--------+ + + + [...]
--- OUTSIDE RECORDS SUMMARY | ~2019-11-02 | XMS | Encounter Summary ---
Demographics + + + | Address | [address] | | | [place] [address] | + + + | Home Phone [...] | Organization | [facility] [...] Providers + +------+ + | Care Auto Appraiser Name | Role | Phone | + +------+ + PCP | Unavailable | + +------+ + Encounter Details +--------+ + + + + | Date | Type | Department | Care Team | Description | +--------+ + + + + | 07/24/ | Hospital | [facility] | | | | 1990 | Encounter | MED CTR EMERGENCY | | | | | | CENTER [address] | | | | | | [place] | | | | | | [address] | | | | | | [phone] | | | +--------+ + + + [...]
--- OUTSIDE RECORDS SUMMARY | ~2019-11-02 | XMS | Encounter Summary ---
Demographics + + + | Address | [address] | | | [place] [address] | + + + | Home Phone [...] Organization | [facility] [...] Providers + +------+ + | Care Golf Sales Manager Name | Role | Phone | + +------+ + PCP | Unavailable | + +------+ + Encounter Details +--------+ + + + + | Date | Type | Department | Care Team | Description | +--------+ + + + + | 07/12/ | Hospital | [facility] | Conversion | | | 2010 | Encounter | HEART MED CTR | Transaction, | | | | | EMERGENCY CENTER | Provider Unknown | | | | | [address] | | | | | | [place] | (Fax) | | | | | [address] | | | | | | [phone] | | | +--------+ + + + [...]
--- OUTSIDE RECORDS SUMMARY | ~2019-11-02 | XMS | Encounter Summary ---
Demographics + + + | Address | [address] | | | [place] [address] | + + + | Home Phone [...] Organization | [facility] [...] Team Providers + +------+ + | Care Sterile Technician Name | Role | Phone | + +------+ + PCP | Unavailable | + +------+ + Encounter Details +--------+ + + + + | Date | Type | Department | Care Team | Description | +--------+ + + + + | 06/22/ | Hospital | [facility] | Yovanny Suazo, | | | 1991 | Encounter | MED CTR WOMENS | MD [address] | | | | | [facility] [address] | [address] | | | | | [place], | [place] [address] | | | | | [place] [address] | [phone] | | | | | [phone] | | | +--------+ + + + [...]
--- OUTSIDE RECORDS SUMMARY | ~2019-11-02 | XMS | Encounter Summary ---
Demographics + + + | Address | [address] | | | [place] [address] | + + + | Home Phone [...] + + + | Author | [place] [employer] Science [facility] | + + + | Organization | [facility] [employer] [facility] [...] Providers + +------+ + | Care Telephone Worker Name | Role | Phone | [...] | | | Ave Mailcode: CH8N | [place], [place] | | | | | [facility] | [address] | | | | | and Healing, | [phone] | | | | | [facility] | | | | | | Floor [place], [place] | | | | | | [address] | | | | | | [phone] | | | +--------+--------+ + + + [...]
--- OUTSIDE RECORDS SUMMARY | ~2019-11-02 | XMS | Encounter Summary ---
Demographics + + + | Address | [address] | | | [place] [address] | + + + | Home Phone [...] + + + | Author | [place] [employer] [facility] | + + + | Organization | [facility] [employer] Science [facility] [...] Team Providers + +------+ + | Care Ceramic Tile Installation Helper Name | Role | Phone | [...] Neurosurgery [address] | | | | | [facility] | [address] | | | | | and Healing, | [place], [place] | | | | | Building | [address] | | | | | Floor [place], [place] | | | | | | [address] | | | | | | [phone] | | | +--------+--------+ + + + [...]
--- OUTSIDE RECORDS SUMMARY | ~2019-11-02 | XMS | Encounter Summary ---
Demographics + + + | Address | [address] | | | [place] [address] | + + + | Home Phone [...] + + + | Author | [place] [employer] Science [facility] | + + + | Organization | [facility] [employer] [facility] | + [...] Team Providers + +------+ + | Care Net Programmer Name | Role | Phone | + +------+ + PCP | Unavailable | + +------+ + Encounter Details +--------+ + + + + | Date | Type | Department | Care Team | Description | +--------+ + + + + | 06/25/ | Telephone | Neurosurgery at | Steph Reyes MD | | | 2010 | | [facility] [address] | | | | | | [place] Mailcode: CH8N | | | | | | [facility] | | | | | | and Healing, | | | | | | Building 1, | | | | | | Floor [place], [place] | | | | | | [address] | | | | | | [phone] | | | +--------+ + + + [...]
--- OUTSIDE RECORDS SUMMARY | ~2019-11-02 | XMS | Encounter Summary ---
Demographics + + + | Address | [address] | | | [place] [address] | + + + | Home Phone [...] + + + | Author | [place] [employer] Science [facility] | + + + | Organization | [facility] [employer] [facility] [...] Providers + +------+ + | Care Die Maintenance Technician Name | Role | Phone [...] | Visit | Medicine Clinic at | HEAD OF ENGLISH [address] | Pre-Operative | | | | [facility] 4th Floor [address] | Examination (Primary | | | | [address] | [place], [place] | Dx); Pseudotumor | | | | Mailcode: CH4S | [address] | Cerebri; Encounter | | | | [facility] | | for Long-Term | | | | and Healing, | | (Current) Use of | | | | Building 1,4th Floor | | Anticoagulants | | | | [place], [place] | | | | | | [address] | | | | | | [phone] | | | +--------+---------+ + + + [...] 07/22/2008 12:47 PM PDTSee Scanned [facility] [address] [place] [address] And [facility],[address] [place] [address] [phone] documented in this encou nter Plan of Treatment + + +--------+ + + | Name | Type | Priori | Associated Diagnoses | Order Schedule | | | | ty | | | + + +--------+ + + | IN COLLECTION VENOUS | Procedures | Routin | [...] [facility] DEPARTMENT OF | [address] [facility] | [place] [address] | | | PATHOLOGY | [address] | | | + + + + + | [facility] DEPARTMENT OF | [address] [facility] | [place] [address] | | | PATHOLOGY | [address] [...] + + + + + | [facility] | [address] [facility] | [place] [address] | | | PATHOLOGY | [address] | | | + + + + + | [facility] | [address] [facility] | [place] [address] | | | PATHOLOGY | [address] [...] + | [facility] DEPARTMENT OF | [address] [facility] | [place] [address] | | | PATHOLOGY | [address] | | | + + + + + | [facility] DEPARTMENT OF | [address] [facility] | [place] [address] | | | PATHOLOGY | [address] [...] + + + + + | [facility] | [address] [facility] | [place] [address] | | | PATHOLOGY | [address] | | | + + + + + | [facility] | [address] [facility] | [place] [address] | | | PATHOLOGY | [address] [...] Performed At | + + + | [id number] Estimated GFR > 60 mL/min/1.73 sq m if non- | [facility] | | [place] [address] Estimated GFR > 60 mL/min/1.73 sq m if | DEPARTMENT OF | | [place] GFR is estimated using the MDRD equation [...] + + + + + | [facility] | [address] | [place] [address] | | | PATHOLOGY | [address] | | | + + + + + | [facility] | [facility] | [place] [address] | | | PATHOLOGY | [address] [...] + + + + + | [facility] | [address] [facility] | [place] [address] | | | PATHOLOGY | [address] | | | + + + + + | [facility] | [address] [facility] | [place] [address] | | | PATHOLOGY | [address] | | | + + + + + documented in this encounter Visit Diagnoses + + | Diagnosis | + + | Other specified pre-operative examination - Primary | + + | Pseudotumor cerebri Benign intracranial hypertension | + + | longterm (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
--- OUTSIDE RECORDS SUMMARY | ~2019-11-02 | XMS | Encounter Summary ---
Demographics + + + | Address | [address] | | | [place] [address] | + + + | Home Phone [...] + + | Author | [place] Br[employer] Science [facility] | + + + | Organization | [facility] zeenworld Science [facility] | [...] Providers + +------+ + | Care E Commerce Retailer Name | Role | Phone | + [...] | | | Ave Mailcode: CH8N | [place], [place] | | | | | [facility] | [address] | | | | | and Healing, | [phone] | | | | | [facility] | | | | | | Floor [place], [place] | | | | | | [address] | | | | | | [phone] | | | +--------+ + + + [...]
--- OUTSIDE RECORDS SUMMARY | ~2019-11-02 | XMS | Encounter Summary ---
Demographics + + + | Address | [address] | | | [place] [address] | + + + | [...] + + + | Author | [place] Nanapi Science [facility] | + + + | Organization | [facility] [...] Team Providers + +------+ + | Care Habitat Biologist Name | Role | Phone | + [...] | | | Ave Mailcode: CH8N | [place], [place] | | | | | [facility] | [address] | | | | | and Healing, | [phone] | | | | | [facility] | | | | | | Floor [place], [place] | | | | | | [address] | | | | | | [phone] | | | +--------+ + + + [...]
--- OUTSIDE RECORDS SUMMARY | ~2019-11-02 | XMS | Encounter Summary ---
Demographics + + + | Address | [address] | | | [place] [address] | + + + | Home Phone [...] + + + | Author | [place] In[employer] Science [facility] | + + + | Organization | [facility] [employer]ang[employer] [facility] | [...] Team Providers + +------+ + | Care Cop Examiner Name | Role | Phone | [...] | | | | | Stay [address] [facility] | | | | | | [address] | | | | | | Mailcode: VIN65 | | | | | | Timoteo Mistry | | | | | | [address] [place], [place] | | | | | | [address] | | | | | | [phone] | | | +--------+ + + + [...]
--- OUTSIDE RECORDS SUMMARY | ~2019-11-02 | XMS | Encounter Summary ---
Demographics + + + | Address | [address] | | | [place] [address] | + + + | Home Phone [...] + + + | Author | [place] Match[employer] Science [facility] | + + + | Organization | [facility] Exch[employer]ery Science [facility] [...] Team Providers + +------+ + | Care Interior Design Instructor Name | Role | Phone | [...] | | | | | | | [facility] | | | | | | | Hospital | | | | | | | [place], [place] | | | | | | | [address] | | | | | | | Phone: | | | | | | | [phone] | | | | | | | Fax: | | | | | | | [phone] | +--------+--------+ + + + + Encounter Details +--------+ + + + + | Date | Type | Department | Care Team | Description | +--------+ + + + + | 05/07/ | Hospital | [facility] [address] | Windy Dennis, | | | 2007 | Encounter | [address] | MD [place] | | | | | [facility] [facility] | MD Holden,PhD | | | | | [place] | | | | | | [address] | | | | | | [phone] | | | +--------+ + + + [...] Dennis, | | | | | | M.D.Assayer Helper surgeon: . | | | | | [...] | | | | | cervical region, CROATIAN and | | | | | | [...] | | | | | | vein with6-Namibian Envoy | | | | | | [...] artery. | | | | | | [id number] Berenstein | | | | | | [...] | | | | | with a 6-Namibian Envoy | | | | | | [...]
--- OUTSIDE RECORDS SUMMARY | ~2019-11-02 | XMS | Encounter Summary ---
Demographics + + + | Address | [address] | | | [place] [address] | + + + | Home Phone [...] + + + | Author | [place] [employer] Science [facility] | + + + | Organization | [facility] [employer] Science [facility] [...] Team Providers + +------+ + | Care Cancer Registry Coordinator Name | Role | Phone | + +------+ + | Brenden Benavides MD | PCP | | + +------+ + Encounter Details +--------+ + + + + | Date | Type | Department | Care Team | Description | +--------+ + + + + | 09/28/ | Documentati | [facility] | Brad Currie MD | | | 2006 | on | Diablo | | | | | | Neuro-Ophthalmology | | | | | | [address] | | | | | | Harman Mailcode: CEI | | | | | | Mailcode: PATTI | | | | | | [place], [place] | | | | | | [address] | | | | | | [phone] | | | +--------+ + + + [...]
--- OUTSIDE RECORDS SUMMARY | ~2019-11-02 | XMS | Encounter Summary ---
Demographics + + + | Address | [address] | | | [place] [address] | + + + | Home Phone [...] + + | Author | [place] [employer] Science [facility] | + + + | Organization | [facility] [employer] Science [facility] [...] Providers + +------+ + | Care Grocery Carrier Name | Role | Phone | [...] | | | Ave Mailcode: CH8N | [place], [place] | | | | | [facility] | [address] | | | | | and Healing, | [phone] | | | | | [facility] | | | | | | Floor [place], [place] | | | | | | [address] | | | | | | [phone] | | | +--------+ + + + [...]
--- OUTSIDE RECORDS SUMMARY | ~2019-11-02 | XMS | Encounter Summary ---
Demographics + + + | Address | [address] | | | [place] [address] | + + + | Home Phone [...] Organization | [facility] | | | and [place] [...] Providers + +------+ + | Care Surgical Assistant Certified Name | Role | Phone | + [...] | | | [address] [place] | [address] | | | | | [address] | [phone] | | | | | [phone] | | | +--------+ + + + [...]
--- OUTSIDE RECORDS SUMMARY | ~2019-11-02 | XMS | Encounter Summary ---
Demographics + + + | Address | [address] | | | [place] [address] | + + + | Home Phone [...] | [facility] | | [...] Providers + +------+ + | Care Medical Accounts Receivable Specialist Name | Role | Phone | [...] | [address] | [facility] | | | | | [place] | [place] [address] | | | | | [address] | [phone] | | | | | [phone] | | | +--------+ + + + [...]
--- OUTSIDE RECORDS SUMMARY | ~2019-11-02 | XMS | Encounter Summary ---
Demographics + + + | Address | [address] | | | [place] [address] | + + + | Home Phone [...] + | Organization | [facility] | [...] Team Providers + +------+ + | Care Preschool Assistant Name | Role | Phone | + +------+ + PCP | Unavailable | + +------+ + Encounter Details +--------+ + + + + | Date | Type | Department | Care Team | Description | +--------+ + + + + | 08/16/ | Hospital | [facility] | | | | 1990 | Encounter | [facility] EM[facility] | | | | | | CENTER [address] | | | | | | [place] | | | | | | [address] | | | | | | [phone] | | | +--------+ + + + [...]
--- OUTSIDE RECORDS SUMMARY | ~2019-11-02 | XMS | Encounter Summary ---
Demographics + + + | Address | [address] | | | [place] [address] | + + + | Home Phone [...] [facility] | | [...] Providers + +------+ + | Care Field Ironworker Name | Role | Phone | + +------+ + PCP | Unavailable | + +------+ + Encounter Details +--------+ + + + + | Date | Type | Department | Care Team | Description | +--------+ + + + + | 10/29/ | Hospital | [facility] | | | | 1991 | Encounter | MED CTR EMERGENCY | | | | | | CENTER [address] | | | | | | [place] | | | | | | [address] | | | | | | [phone] | | | +--------+ + + + [...]
--- OUTSIDE RECORDS SUMMARY | ~2019-11-02 | XMS | Encounter Summary ---
Demographics + + + | Address | [address] | | | [place] [address] | + + + | Home Phone [...] | Organization | [facility] [...] Team Providers + +------+ + | Care Career Information Specialist Name | Role | Phone | + +------+ + PCP | Unavailable | + +------+ + Encounter Details +--------+ + + + + | Date | Type | Department | Care Team | Description | +--------+ + + + + | 08/10/ | Hospital | [facility] | | | | 1990 | Encounter | MED CTR EMERGENCY | | | | | | CENTER [address] | | | | | | [place] | | | | | | [address] | | | | | | [phone] | | | +--------+ + + + [...]
--- OUTSIDE RECORDS SUMMARY | ~2019-11-02 | XMS | Encounter Summary ---
Demographics + + + | Address | [address] | | | [place] [address] | + + + | Home Phone [...] [facility] | | | and [place] | [...] Providers + +------+ + | Care Health Researcher Name | Role | Phone | + +------+ + PCP | Unavailable | + +------+ + Encounter Details +--------+ + + + + | Date | Type | Department | Care Team | Description | +--------+ + + + + | 10/20/ | Hospital | [facility] | | | | 1999 | Encounter | MED CTR EMERGENCY | | | | | | CENTER [address] | | | | | | [place] | | | | | | [address] | | | | | | [phone] | | | +--------+ + + + [...]
--- OUTSIDE RECORDS SUMMARY | ~2019-11-02 | XMS | Encounter Summary ---
Demographics + + + | Address | [address] | | | [place] [address] | + + + | Home Phone [...] + + + | Author | [place] [employer] [facility] | + + + | Organization | [facility] ison furniture Science [facility] | + [...] Providers + +------+ + | Care Elementary School Librarian Name | Role | Phone | [...] | | | | | | | [place], | | | | | | | [place] [address] | | | | | | | Phone: | | | | | | | [phone] | | | | | | | Fax: | | | | | | | [phone] | +--------+--------+ + + + + Encounter Details +--------+ + + + + | Date | Type | Department | Care Team | Description | +--------+ + + + + | 03/26/ | Procedure | [facility] | | Visual field testing | | 2012 | | [facility] | | | | | | [facility] at [facility] [address] | | | | [address] | | | | | | Mailcode: CH11P | | | | | | [facility] | | | | | | and [place], | | | | | | | | | | | | [place], [place] | | | | | | [address] | | | | | | [phone] | | | +--------+ + + + [...] PDT Annabella Au was seen in the [facility] Department today, 2012, for HVF [...]
--- OUTSIDE RECORDS SUMMARY | ~2019-11-02 | XMS | Encounter Summary ---
Demographics + + + | Address | [address] | | | [place] [address] | + + + | Home Phone [...] + + + | Author | [place] [employer] [facility] | + + + | Organization | [facility] [employer] [facility] | + + [...] Providers + +------+ + | Care Lease Picker Name | Role | Phone | [...] | Visit | Medicine Clinic at | CASINO ASSISTANT MANAGER [address] | Pre-Operative | | | | [facility] 4th Floor [address] | Examination (Primary | | | | [address] | [place], [place] | Dx); Pseudotumor | | | | Mailcode: CH4S | [address] | Cerebri; Encounter | | | | [facility] | | for Long-Term | | | | and Healing, | | (Current) Use of | | | | Building 1,4th Floor | | Anticoagulants | | | | [place], [place] | | | | | | [address] | | | | | | [phone] | | | +--------+---------+ + + + [...] Scanned [facility] [address] [place] [address] [facility],[address] [place] [phone] documented in this encou nter Plan of Treatment + + +--------+ + + | Name | Type | Priori | Associated Diagnoses | Order Schedule | | | | ty | | | + + +--------+ + + | CO COLLECTION VENOUS | Procedures | Routin | [...] | + + + + + | [facility] DEPARTMENT OF | [address] [facility] | [place] [address] | | | PATHOLOGY | [address] | | | + + + + + | [facility] DEPARTMENT OF | [address] [facility] [facility] | [place] [address] | | | PATHOLOGY | [address] [...] + + + + + | [facility] | [address] [facility] | [place] [address] | | | PATHOLOGY | [address] | | | + + + + + | [facility] | [address] [facility] | [place] [address] | | | PATHOLOGY | [address] [...] + | [facility] DEPARTMENT OF | [address] [facility] | [place] [address] | | | PATHOLOGY | [address] | | | + + + + + | [facility] DEPARTMENT OF | [address] [facility] [facility] | [place] [address] | | | PATHOLOGY | [address] [...] + + + + + | [facility] | [address] [facility] | [place] [address] | | | PATHOLOGY | [address] | | | + + + + + | [facility] | [address] [facility] | [place] [address] | | | PATHOLOGY | [address] [...] Performed At | + + + | [id number] Estimated GFR > 60 mL/min/1.73 sq m if non- | [facility] | | Uzbek [id number] Estimated GFR > 60 mL/min/1.73 sq m if | DEPARTMENT OF | | [place] GFR is estimated using the MDRD equation [...] + + + + + | [facility] | [address] | [place] [address] | | | PATHOLOGY | [address] | | | + + + + + | [facility] | [facility] | [place] [address] | | | PATHOLOGY | [address] [...] + + + + + | [facility] | [address] [facility] | [place] [address] | | | PATHOLOGY | [address] | | | + + + + + | [facility] | [address] [facility] | [place] [address] | | | PATHOLOGY | [address] [...]
--- OUTSIDE RECORDS SUMMARY | ~2019-11-02 | XMS | Encounter Summary ---
Demographics + + + | Address | [address] | | | [place] [address] | + + + | Home Phone [...] + + + | Author | [place] [employer] Science [facility] | + + + | Organization | [facility] [employer] Science [facility] | + [...] Providers + +------+ + | Care Bad Credit Collector Name | Role | Phone | [...] | | | | | | | [id number]/[id number] | | | | | | | [place] | | | | | | | [place] | | | | | | | [place], [place] | | | | | | | [address] Phone: | | | | | | | [phone] | +--------+--------+ + + + + Encounter Details +--------+ + + + + | Date | Type | Department | Care Team | Description | +--------+ + + + + | 08/01/ | Hospital | [facility] [address] | Sam Pedroza MD | | | 2007 - | Encounter | [address] | [address] | | | | | [id number]/[id number] G[place] | [place], [place] | | | 08/02/ | | [place], | [address] | | | 2007 | | [place] [address] | [phone] | | | | | [phone] | | | +--------+ + + + [...] in 2 weeks, please call for appointment: [phone] Condition On Discharge: Vital Signs at discharge [...] in 2 weeks, please call for appointment: [phone] Condition On Discharge: Vital Signs at discharge [...] at this time. Yessenia Nowak, OTR/ L [address] Tomasz Caldera Md - 02/2008 11:08 AM [...] Performed At | + + + | [id number] | | | [id number] | | | [place] [id number] Date: | | | 08/01/2008 Attending Surgeon: | | | Sam Pedroza M.D. Lance Crewmember(s): | | | Tomasz Rice M.D. | [...] | tonsils and then gently incised. A [place] 4 was then easily fed | | [...] | | | Pooja Pedroza M.D. / [id number] / | | | [id number] / 275[address] / | | + + + + + | Procedure Note | + + | Krystal Rushing, Tomasz - 08/01/2008 12:00 AM PDT [id number] | | [id number] [place] | | [id number] Date: 08/01/2008 Attending Surgeon: Sam | | Pooja Pedroza Lance Crewmember(s): Tomasz Rice M.D. | | Palomo Jansen [...] tonsils and | | thengently incised. A [place] 4 was then easily fed through it, [...] Sam Pedroza M.D. KG / | | [id number] / [id number] / [id number] / T: 08/02/2008 | |dripping from the [...] tonsils and then | |gently incised. A [place] 4 was then easily fed through it, [...] | | | |KG / HS | |[id number] / [id number] / 23461 / | | | | | | | | | | | | | | | | | | | | | + + TEACHING PHYSICIAN (08/01/2008 12:00 AM PDT) + + + | Narrative | Performed At | + + + | [id number] | | | [id number] | | | [place] [id number] | | | Date: 08/01/2008 Attending Surgeon: | | | Sam Pedroza M.D. Lance Crewmember(s): | | | Tomasz Rice M.D. | [...] | | | Pooja Pedroza / LANETTE [id number] / [id number] / 45598 / 86051 D: | | | 08/01/2008 | | + + + + + | Procedure Note | + + | Sam Pedroza MD - 08/01/2008 12:00 AM PDT [id number] | | [id number] [place] | | [id number] Date: 08/01/2008ttending Surgeon: Sam | | Pooja Pedroza Lance Crewmember(s): Tomasz Rice M.D. | | Palomo Jansen [...] | Bisi. Sam Pedroza M.D. AD / [id number] / [id number] / 80500 / 11160L: | | 08/01/2008T: 08/01/2008 | | | [...] | | | |AD / HS | |[id number] / [id number] / 21169 / 42063 | | | | | | | [...]
--- OUTSIDE RECORDS SUMMARY | ~2019-11-02 | XMS | Encounter Summary ---
Demographics + + + | Address | [address] | | | [place] [address] | + + + | Home Phone [...] + + + | Author | [place] [employer] [facility] | + + + | Organization | [facility] [employer] Science [facility] [...] Providers + +------+ + | Care Business Intelligence Developer Name | Role | Phone | [...] Mailcode: | | | | | | [place], [place] | [address] 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 Emergency | Mack Castrejon MD | | | 2012 | | Department [address] | [address] [facility] | | | | | [address] | [facility] | | | | | [facility] | [place], [place] | | | | | [place], [place] | [address] | | | | | [address] | [phone] | | | | | [phone] | | | | | | | [...] MD - 03/13/2013 Thanks for coming to [facility] today. Your head CT was negative for any new findings. The neurosurgeon did not think there was a malfunction in your shunt. The party supply specialist recommends you taking Diomox again and follow [facility] [employer]. Please follow up with your doctor. Rest, [...] TOTH | [address] | [place], [place] | | | NACHO POINT OF CARE | [address] | [address] | | | TESTS | | | [...] | + + + + + | [facility] | [address] | [place] [address] | | | SERVICES, CORE | SKY [...] | | | | | CHRISTIANO TORRES ([id number]) | | | | | | on 03/14/2013 10:35:55 AM | | | | + + + + + + + + | Specimen | + + | | + + + + + | Narrative | Performed At | + + + | Please click | [facility] | | on view image for the detailed interpretation from [employer] results. | CARDIOLOGY | + + + + + + + + | Performing | Address | City/State/Zipcode | Phone Number | | Organization | | | | + + + + + | [facility] | [address] | [place], [place] | | | CARDIOLOGY | [address] | [address] | | + + + + + [...] [facility] | [address] | [place], [place] | | | NACHO POINT OF CARE | [address] | [address] | | | TESTS | | | [...] [facility] | [address] | [place] [address] | | | SERVICES, CORE | [address]ARK [...] | + + + + + | [facility] | [address] | [place] [address] | | | SERVICES, CORE | SKY [...] | | | LABORATORY | | | NAMIBIAN | | | SERVICES, | | | [...] | + + + + + | [facility] | [address] | [place] [address] | | | SERVICES, CORE | PARK [...] | + + + + + | [email or web address] | [address] | [place] [address] | | | SERVICES, CORE | SKY [...] + | [place] - [place] - | [address] | [place] [address] | | | [place] | | | [...] | + + + + + | [facility] | [address] | [place] [address] | | | SERVICES, CORE | SKY [...]
--- OUTSIDE RECORDS SUMMARY | ~2019-11-02 | XMS | Encounter Summary ---
Demographics + + + | Address | [address] | | | [place] [address] | + + + | Home Phone [...] + + + | Author | [place] [employer] Science [facility] | + + + | Organization | [facility] [employer] Science [facility] [...] Providers + +------+ + | Care Document Controller Name | Role | Phone | + +------+ + | Yeison Simms MD | PCP | Unavailable | + +------+ + Encounter Details +--------+--------+ + + + | Date | Type | Department | Care Team | Description | +--------+--------+ + + + | 09/06/ | Refill | Neurosurgery at | Kiki Rosen, | | | 2007 | | [facility] [address] | [place] | | | | | [place] Mailcode: CH8N | Neurosurgery [address] | | | | | [facility] | [address] | | | | | and Healing, | [facility] [place] | | | | | Building | [address] | | | | | Floor [place], [place] | | | | | | [address] | | | | | | [phone] | | | +--------+--------+ + + + [...]
--- OUTSIDE RECORDS SUMMARY | ~2019-11-02 | XMS | Encounter Summary ---
Demographics + + + | Address | [address] | | | [place] [address] | + + + | Home Phone [...] | Organization | [facility] | [...] Team Providers + +------+ + | Care Undergraduate Internship Name | Role | Phone | + +------+ + PCP | Unavailable | + +------+ + Encounter Details +--------+ + + + + | Date | Type | Department | Care Team | Description | +--------+ + + + + | 01/27/ | Hospital | [facility] | Marine Oden | | | 2011 - | Encounter | MED CTR EMERGENCY | DO Gaurang Drake | | | | | [address] | [place], [place] | | | 01/28/ | | [place], [place] | [address] | | | 2011 | | [address] | | | | | | [phone] | | | +--------+ + + + [...] Performed At | + + + | [facility] Diagnostic Imaging Department | [facility] | | [address] [facility] | [facility] | | UNENHANCED HEAD CT, [...] COMMUNICATED TO THE ER STAFF BY THE [facility] RADIOLOG IST ON | | | 01/29/2012 AT 0003 HOURS. Dictated Date/Time: 01/29/2012 09:41 | | | Transcribed Date/Time: 01/29/2012 09:47 Nuclear Criticality Safety Engineer: | | | <Electronically Signed by Ivan Smalls MD> 01/29/12 1606 | | + + + + + | Procedure Note | + + | Neal, Rad Conversion - 01/04/2014 4:[address] [facility] | | Diagnostic Imaging Department [address] [place] | | UNENHANCED HEAD CT, 01/28/2012, 2342 [...] THE ER STAFF BY | | THE [facility] RADIOLOGIST ON 01/29/2012 AT 0003 HOURS. Dictated [...] 09:41 | |Transcribed Date/Time: 01/29/2012 09:47 | |Nuclear Criticality Safety Engineer: | |<Electronically Signed by Ivan Smalls MD> [...]
--- OUTSIDE RECORDS SUMMARY | ~2019-11-02 | XMS | Encounter Summary ---
Demographics + + + | Address | [address] | | | [place] [address] | + + + | Home Phone [...] Organization | [facility] | | [...] Providers + +------+ + | Care Battery Assembler Plastic Name | Role | Phone | + +------+ + PCP | Unavailable | + +------+ + Encounter Details +--------+ + + + + | Date | Type | Department | Care Team | Description | +--------+ + + + + | 05/31/ | Hospital | [facility] | | | | 1991 | Encounter | MED [facility] | | | | | | HEALTH [facility] [address] | | | | | | [place], | | | | | | [place] [address] | | | | | | [phone] | | | +--------+ + + + [...]
--- OUTSIDE RECORDS SUMMARY | ~2019-11-02 | XMS | Encounter Summary ---
Demographics + + + | Address | [address] | | | [place] [address] | + + + | Home Phone [...] + | Organization | [facility] | | [...] | 10/02/ | Hospital | [facility] | | | | 1991 | Encounter | MED CTR WOMENS | | | | | | HEALTH SV [address] | | | | | | [place], | | | | | | [place] [address] | | | | | | [phone] | | | +--------+ + + + [...]
--- OUTSIDE RECORDS SUMMARY | ~2019-11-02 | XMS | Encounter Summary ---
Demographics + + + | Address | [address] | | | [place] [address] | + + + | Home Phone [...] | Organization | [facility] | | | and [...] Team Providers + +------+ + | Care Art Consultant Name | Role | Phone | + +------+ + PCP | Unavailable | + +------+ + Encounter Details +--------+ + + + + | Date | Type | Department | Care Team | Description | +--------+ + + + + | 11/04/ | Hospital | [facility] | Unknown, | | | 2004 | Encounter | MED CTR XRAY [address] | MD Sudhakar | | | | | [place] | | | | | | [place] [address] | (Fax) | | | | | [phone] | | | +--------+ + + + [...]
--- OUTSIDE RECORDS SUMMARY | ~2019-11-02 | XMS | Encounter Summary ---
Demographics + + + | Address | [address] | | | [place] [address] | + + + | Home Phone [...] + | Organization | [facility] | | [...] Providers + +------+ + | Care Supervisor Mechanic Boilermaking Name | Role | Phone | + +------+ + PCP | Unavailable | + +------+ + Encounter Details +--------+ + + + + | Date | Type | Department | Care Team | Description | +--------+ + + + + | 07/17/ | Hospital | [facility] | Domingo Darby, | | | 2010 | Encounter | HEART MED CTR | [address] | | | | | EMERGENCY CENTER | [place] [address] | | | | | [address] | [phone] | | | | | [place], [place] | | | | | | [address] | | | | | | [phone] | | | +--------+ + + + [...]
--- OUTSIDE RECORDS SUMMARY | ~2019-11-02 | XMS | Encounter Summary ---
Demographics + + + | Address | [address] | | | [place] [address] | + + + | Home Phone [...] + + | Author | [place] [facility] | + + + | Organization | [facility] [employer] [facility] [...] Providers + +------+ + | Care Small Products Ii Assembler Name | Role | Phone | [...] | | | | | Stay [address] [facility] | | | | | | [address] | | | | | | Mailcode: VIN65 | | | | | | Timoteo Mistry | | | | | | [address] [place], [place] | | | | | | [address] | | | | | | [phone] | | | +--------+ + + + [...]
--- OUTSIDE RECORDS SUMMARY | ~2019-11-02 | XMS | Encounter Summary ---
Demographics + + + | Address | [address] | | | [place] [address] | + + + | Home Phone [...] + + + | Author | [place] [employer] [facility] | + + + | Organization | [facility] [employer] [facility] | + [...] Team Providers + +------+ + | Care Fruit Culler Name | Role | Phone | + [...] | Prescription | | 2012 | | [place]/Ophthalmol | MD Perry | | | | | leon at [facility] [address] | | | | | | [address]luca Kirk Mailcode: | | | | | | CH11P [facility] | | | | | | Health and [facility], | | | | | | Building | | | | | | [place], [place] | | | | | | [address] | | | | | | [phone] | | | +--------+ + + + [...]
--- OUTSIDE RECORDS SUMMARY | ~2019-11-02 | XMS | Encounter Summary ---
Demographics + + + | Address | [address] | | | [place] [address] | + + + | Home Phone [...] + | Organization | [facility] | | [...] Team Providers + +------+ + | Care Inspecting Engineer Name | Role | Phone | + +------+ + PCP | Unavailable | + +------+ + Encounter Details +--------+ + + + + | Date | Type | Department | Care Team | Description | +--------+ + + + + | 07/19/ | Hospital | [facility] | Vern Rooney, | | | 1990 - | Encounter | MED CTR MED ONC | [address] | | | | | [address] | [place] | | | 07/21/ | | [place] [address] | [address] | | | 1990 | | [phone] | | | +--------+ + + + [...]
--- OUTSIDE RECORDS SUMMARY | ~2019-11-02 | XMS | Encounter Summary ---
Demographics + + + | Address | [address] | | | [place] [address] | + + + | Home Phone [...] Organization | [facility] [...] Team Providers + +------+ + | Care Self Propelled Hot Mix Roller Operator Name | Role | Phone | + +------+ + PCP | Unavailable | + +------+ + Encounter Details +--------+ + + + + | Date | Type | Department | Care Team | Description | +--------+ + + + + | 09/30/ | Hospital | [facility] | | | | 1990 | Encounter | MED CTR EMERGENCY | | | | | | CENTER [address] | | | | | | [place] | | | | | | [address] | | | | | | [phone] | | | +--------+ + + + [...]
--- OUTSIDE RECORDS SUMMARY | ~2019-11-02 | XMS | Encounter Summary ---
Demographics + + + | Address | [address] | | | [place] [address] | + + + | Home Phone [...] Organization | [facility] | | | [...] Team Providers + +------+ + | Care Lumber Hacker Name | Role | Phone | + +------+ + PCP | Unavailable | + +------+ + Encounter Details +--------+ + + + + | Date | Type | Department | Care Team | Description | +--------+ + + + + | 07/24/ | Hospital | [facility] | | | | 1990 | Encounter | MED CTR EMERGENCY | | | | | | CENTER [address] | | | | | | [place] | | | | | | [address] | | | | | | [phone] | | | +--------+ + + + [...]
--- OUTSIDE RECORDS SUMMARY | ~2019-11-02 | XMS | Encounter Summary ---
Demographics + + + | Address | [address] | | | [place] [address] | + + + | Home Phone [...] + | Organization | [facility] | [...] Team Providers + +------+ + | Care Workday Senior Associate Name | Role | Phone | + +------+ + PCP | Unavailable | + +------+ + Encounter Details +--------+ + + + + | Date | Type | Department | Care Team | Description | +--------+ + + + + | 01/15/ | Hospital | [facility] | Marine Oden | | | 2011 | Encounter | MED CTR EMERGENCY | DO Gaurang Drake | | | | | [address] | [place], [place] | | | | | [place], [place] | [address] | | | | | [address] | | | | | | [phone] | | | +--------+ + + + [...]
--- OUTSIDE RECORDS SUMMARY | ~2019-11-02 | XMS | Encounter Summary ---
Demographics + + + | Address | [address] | | | [place] [address] | + + + | Home Phone [...] Organization | [facility] | [...] Providers + +------+ + | Care Automotive Machinist Name | Role | Phone | [...] | PHYSIATRY [address] | MD [address] | | | | | [place], | Ciara [place]EVES | | | | | [place] [address] | [place] [address] | | | | | [phone] | | | +--------+ + + + [...]
--- OUTSIDE RECORDS SUMMARY | ~2019-11-02 | XMS | Encounter Summary ---
Demographics + + + | Address | [address] | | | [place] [address] | + + + | Home Phone [...] + + + | Author | [place] [employer] [facility] | + + + | Organization | [facility] [employer] [facility] | + + + | Address | Unknown | + + + | Phone | Unavailable | + + + Support + + +---------+ + | Name | Relationship | Address | Phone | + + +---------+ + | Ruby Au | ECON | Unknown | | + + +---------+ + Care Team Providers + +------+ + | Care Microgrinder Operator Name | Role | Phone | [...] | | | | | | | [facility] | | | | | | | Hospital | | | | | | | [place], [place] | | | | | | | [address] | | | | | | | Phone: | | | | | | | [phone] | | | | | | | Fax: | | | | | | | [phone] | +--------+--------+ + + + + Encounter Details +--------+ + + + + | Date | Type | Department | Care Team | Description | +--------+ + + + + | 05/07/ | Hospital | [facility] [address] | Windy Dennis, | | | 2007 | Encounter | [address] | MD [place] | | | | | 11B [facility] | MD Holden,PhD | | | | | [place] | | | | | | [address] | | | | | | [phone] | | | +--------+ + + + [...] Dennis, | | | | | | M.D.Hands And Dial Inspector surgeon: . | | | | [...] | | | | | cervical region, SOMALI and | | | | | | [...] | | | | | | vein with6-Qatari Envoy | | | | | | [...] artery. | | | | | | [id number] Berenstein | | | | | | [...] | | | | | with a 6-Qatari Envoy | | | | | | [...]
--- OUTSIDE RECORDS SUMMARY | ~2019-11-02 | XMS | Encounter Summary ---
Demographics + + + | Address | [address] | | | [place] [address] | + + + | Home Phone [...] + + + | Author | [place] [employer] [facility] | + + + | Organization | [facility] [facility] | + [...] Team Providers + +------+ + | Care Braider Operator Name | Role | Phone | [...] | | Ophthalmology | | Non-[facility] | [place], | | | | | | Epic Dept | Graciela Guardado MD | | | | | | | [address] | | | | | | | [address] | | | | | | | [place], [place] | | | | | | | [address] | | | | | | | Phone: | | | | | | | [phone] | | | | | | | Fax: | | | | | | | [phone] | +--------+--------+ + + + + Encounter Details +--------+---------+ + + + | Date | Type | Department | Care Team | Description | +--------+---------+ + + + | 03/26/ | Office | [facility] | Mo Hood | Pseudotumor cerebri | | 2012 | Visit | [place]/Ophthalmol | MD Perry | (Primary Dx); | | | | ogy at [facility] [address] | | Depression; Type II | | | | [address] [place] Mailcode: | | or unspecified type | | | | [address] for | | diabetes mellitus | | | | Health and Healing, | | without mention of | | | | Building | | complication, not | | | | Floor [place], [place] | | stated as | | | | [address] | | uncontrolled; PTSD | | | | [phone] | | (post-traumatic | | | | [...] HPI: 37 y.o. year old female from [place] : Patient presents with: IIH - Idiopathic [...] because they live 4 hours away in [facility]. Tobacco use: reports that she [...] Right Left Disc 1+ Optic disc edema, +EMPLOYEE COUNSELOR 2+ Optic disc edema, RNFL whitening at the superonasal borde r of the disc. There is spontaneous pulsing of the entire disc head with heart beat. C/D Ratio 0.1 0.1 Macula Normal Normal Vessels Engorged. tortuous Engorged. tortuous Periphery Normal Normal Neuro/Psych Oriented x3: Yes Mood/Affect: Normal See [facility] Ophthalmology Exam Module for additional [...] Dr. Lux. Mo Hood MD Resident Physician [facility] [place], PGY-2 [facility] Physician: Mo Hood MD, 03/26/2013 documented [...]
--- OUTSIDE RECORDS SUMMARY | ~2019-11-02 | XMS | Encounter Summary ---
Demographics + + + | Address | [address] | | | [place] [address] | + + + | Home Phone [...] + | Organization | [facility] [...] Providers + +------+ + | Care Detective Bureau Chief Name | Role | Phone | + +------+ + PCP | Unavailable | + +------+ + Encounter Details +--------+ + + + + | Date | Type | Department | Care Team | Description | +--------+ + + + + | 09/20/ | Hospital | [facility] | | | | 1991 | Encounter | MED CTR WOMENS | | | | | | HEALTH SV [address] | | | | | | [place], | | | | | | [place] [address] | | | | | | [phone] | | | +--------+ + + + [...]
--- OUTSIDE RECORDS SUMMARY | ~2019-11-02 | XMS | Encounter Summary ---
Demographics + + + | Address | [address] | | | [place] [address] | + + + | Home Phone [...] Organization | [facility] | [...] Providers + +------+ + | Care Warehouse Person Name | Role | Phone | [...] | | | | | | [place] [address] | | | | | | [phone] | | | +--------+ + + + [...]
--- OUTSIDE RECORDS SUMMARY | ~2019-11-02 | XMS | Encounter Summary ---
Demographics + + + | Address | [address] | | | [place] [address] | + + + | Home Phone [...] + + | Author | [place] [employer] [facility] | + + + | Organization | [facility] [employer] [facility] [...] Providers + +------+ + | Care Field Technical Assistant Name | Role | Phone | [...] Cerebri; | | 2006 | Visit | [place]/Ophthalmol | | Papilled[place] | | | | ogy at [facility] [address] | | Associated with | | | | [address] Mailcode: | | Increased | | | | CH11P Center for | | Intracranial | | | | Health and Healing, | | Pressure; Transient | | | | Building | | Visual Loss | | | | Floor [place], [place] | | | | | | [address] | | | | | | [phone] | | | +--------+---------+ + + + [...] HPI: 31 y.o. year old female from [place] : Patient presents with: Transient visual loss [...] seconds; these occur 2-3 x per [place]. Hobbies: Tobacco use: reports that she has [...] patient [facility] at [facility] prn new symptoms or complaints. [...]
--- OUTSIDE RECORDS SUMMARY | ~2019-11-02 | XMS | Encounter Summary ---
Demographics + + + | Address | [address] | | | [place] [address] | + + + | Home Phone [...] + + + | Author | [place] [employer] [facility] | + + + | Organization | [facility] [employer] [facility] | + + [...] + +------+ + | Care Rubber Goods Repairer Name | Role | Phone | [...] Care Coordination | | 2018 | | [place] | [address] | | | | | Neuro-Ophthalmology | [facility] [place] | | | | | at [facility] [address] | [address] | | | | | Ave Mailcode: CH3G | [phone] | | | | | [facility] | | | | | | and Healing, | | | | | | Building | | | | | | Floor [place], [place] | | | | | | [address] | | | | | | [phone] | | | +--------+ + + + [...]
--- OUTSIDE RECORDS SUMMARY | ~2019-11-02 | XMS | Encounter Summary ---
Demographics + + + | Address | [address] | | | [place] [address] | + + + | Home Phone [...] + + + | Author | [place] [employer] [facility] | + + + | Organization | [facility] [employer] [facility] | [...] Providers + +------+ + | Care Home Economist Name | Role | Phone | + [...] | | | Rd Mailcode: PV01 | [place], [place] | | | | | Physician's | [address] | | | | | [place], | [phone] | | | | | [place] [address] | | | | | | [phone] | | | +--------+ + + + [...]
--- OUTSIDE RECORDS SUMMARY | ~2019-11-02 | XMS | Encounter Summary ---
Demographics + + + | Address | [address] | | | [place] [address] | + + + | Home Phone [...] Providers + +------+ + | Care Grain Packer Name | Role | Phone | + +------+ + PCP | Unavailable | + +------+ + Encounter Details +--------+ + + + + | Date | Type | Department | Care Team | Description | +--------+ + + + + | 10/22/ | Hospital | [facility] | | | | 1991 - | Encounter | MED CTR WOMENS | | | | | | [facility] [address] | | | | 10/24/ | | [place], | | | | 1991 | | [place] [address] | | | | | | [phone] | | | +--------+ + + + [...]
--- OUTSIDE RECORDS SUMMARY | ~2019-11-02 | XMS | Encounter Summary ---
Demographics + + + | Address | [address] | | | [place] [address] | + + + | Home Phone [...] + + | Author | [place] [employer] [facility] | + + + | Organization | [facility] [employer] [facility] | + [...] Providers + +------+ + | Care Employment Coach Name | Role | Phone | [...] Refill Request | | 2012 | | [place]/Ophthalmol | MD Perry | | | | | leon at [facility] [address] | | | | | | [address] Mailcode: | | | | | | CH11P [facility] | | | | | | Health and Healing, | | | | | | [facility] | | | | | | Floor [place], [place] | | | | | | [address] | | | | | | [phone] | | | +--------+--------+ + + + [...]
--- OUTSIDE RECORDS SUMMARY | ~2019-11-02 | XMS | Encounter Summary ---
Demographics + + + | Address | [address] | | | [place] [address] | + + + | Home Phone [...] + + | Author | [place] [employer] [facility] | + + + | Organization | [facility] [employer] [facility] | + [...] Cerebri | | 2007 | Visit | [facility] [address] | [address] | (Primary Dx) | | | | Ave Mailcode: CH8N | [place], [place] | | | | | [facility] | [address] | | | | | and Healing, | [phone] | | | | | [facility] | | | | | | Floor [place], [place] | | | | | | [address] | | | | | | [phone] | | | +--------+---------+ + + + [...]
--- OUTSIDE RECORDS SUMMARY | ~2019-11-02 | XMS | Encounter Summary ---
Demographics + + + | Address | [address] | | | [place] [address] | + + + | Home Phone [...] + + + | Author | [place] [employer] [facility] | + + + | Organization | [facility] SEJENT [facility] | + [...] Providers + +------+ + | Care Sql Programmer Name | Role | Phone | + +------+ + | Yeison Simms MD | PCP | Unavailable | + +------+ + Encounter Details +--------+--------+ + + + | Date | Type | Department | Care Team | Description | +--------+--------+ + + + | 09/06/ | Refill | Neurosurgery at | Kiki Rosen, | | | 2007 | | [facility] [address] | [place]ORA JOSE | | | | | [place] Mailcode: CH8N | Neurosurgery [address] | | | | | [facility] | [address] | | | | | and Healing, | [facility] [place] | | | | | Building | [address] | | | | | Floor [place], [place] | | | | | | [address] | | | | | | [phone] | | | +--------+--------+ + + + [...]
--- OUTSIDE RECORDS SUMMARY | ~2019-11-02 | XMS | Encounter Summary ---
Demographics + + + | Address | [address] | | | [place] [address] | + + + | Home Phone [...] + + | Author | [place] [employer] [facility] | + + + | Organization | [facility] [employer] [facility] | + [...] Team Providers + +------+ + | Care Tooth Clerk Name | Role | Phone | [...] [address] | | | | | | [address] | Ave | | | | | | [address] | [place], [place] | | | | | | [place], | [address] | | | | | | [place] [address] | Phone: | | | | | | Phone: | [phone] | | | | | | [phone] | Fax: | | | | | | Fax: | [phone] | | | | | | [phone] | | +--------+ + + + + + Encounter Details +--------+---------+ + + + | Date | Type | Department | Care Team | Description | +--------+---------+ + + + | 09/17/ | Office | Neurosurgery at | Casimiro Payton MD | Pseudotumor cerebri | | 2010 | Visit | [facility] [address] | [address] | (Primary Dx) | | | | Ave Mailcode: CH8N | [place], [place] | | | | | [facility] | [address] | | | | | and Healing, | [phone] | | | | | [facility] | | | | | | Floor [place], [place] | | | | | | [address] | | | | | | [phone] | | | +--------+---------+ + + + [...] soon. I spent more than 15 minutes [id number] with the patient of which greater than 50% was sp ent counseling the patient regarding the shunt removal, indications and venous sinus stent a ngioplasty. Since her shunt is brent effective now she will need narcotics for headache and he r PCP should manage that. CASIMIRO PAYTON MD NEUROSURGERY [address] Mailcode: Ch8n [facility], 8th [facility] [address] documented in this encou nter Plan of Treatment Not on filedocumented as of this encounter Visit Diagnoses + + | Diagnosis | + + | Pseudotumor cerebri - Primary Benign intracranial hypertension | + + documented in this encounter
--- OUTSIDE RECORDS SUMMARY | ~2019-11-02 | XMS | Encounter Summary ---
Demographics + + + | Address | [address] | | | [place] [address] | + + + | Home Phone [...] | Organization | [facility] | [...] Team Providers + +------+ + | Care Employee Communications Specialist Name | Role | Phone | + +------+ + PCP | Unavailable | + +------+ + Encounter Details +--------+ + + + + | Date | Type | Department | Care Team | Description | +--------+ + + + + | 10/14/ | Hospital | [facility] | | | | 1991 | Encounter | MED CTR WOMENS | | | | | | HEALTH [address] | | | | | | [place], | | | | | | [place] [address] | | | | | | [phone] | | | +--------+ + + + [...]
--- OUTSIDE RECORDS SUMMARY | ~2019-11-02 | XMS | Encounter Summary ---
Demographics + + + | Address | [address] | | | [place] [address] | + + + | Home Phone [...] | Organization | [facility] [...] Providers + +------+ + | Care Wood Cut Engraver Name | Role | Phone | [...] left hand | [address] | | | | n | Weakness of | [address] | [place], | | | | | both hands | [place], | [place] [address] | | | | | [place] left | [place] [address] | Phone: | | | | | wrist Pain | Phone: | [phone] | | | | | of right | [phone] | Fax: | | | | | thumb | Fax: | [phone] | | | | | Trigger | [phone] | | | | | | finger [...] | | | | | Trigger | [address] | [place] | | | | | finger of | [place], | [place] | | | | | right thumb | [place] [address] | [address] | | | | | | Phone: | Phone: | | | | | | [phone] | [phone] | | | | | | Fax: | Fax: | | | | | | [phone] | [phone] | +--------+ + + + + + [...] | | Rehabilitatio | tunnel | PA-C [address] | [address] | | | | n | syndrome on | | [place], | | | | | left | [place] | [place] [address] | | | | | | WAY | Phone: | | | | | | [place], | [phone] | | | | | | [place] [address] | Fax: | | | | | | Phone: | [phone] | | | | | | [phone] | | | | | | | Fax: | | | | | | | [phone] | | +--------+--------+ + + + + Encounter Details +--------+---------+ + + + | Date | Type | Department | Care Team | Description | +--------+---------+ + + + | 01/03/ | Office | [place] | Amanuel Jennings, | Numbness of left | | 2019 | Visit | PHYSIATRY [address] | MD [address] | hand (Primary Dx); | | | | [place], | [place], [place] | Weakness of both | | | | [place] [address] | [address] | hands; Mass of left | | | | [phone] | | wrist; Pain of right | [...] encounter Patient Instructions Patient Instructions Adelaide Santa, Diet Aide - 01/03/2019 1:00 PM Rina chowdhury o [...] back pain Antisocial personality disorder ([facility]) Anxiety disorder Asthma Benign essential hypertension Chronic back pain Chronic obstructive lung disease (HCC) Chronic posttraumatic stress disorder Depressive disorder Diabetes mellitus type 2 in obese ([facility]) Gastroesophageal reflux disease Heroin dependence ([facility]) Hoarse Hypertensive disorder Insomnia with sleep apnea IV drug abuse ([facility]) Low back strain Numbness of left hand Obstructive sleep apnea of adult Opioid dependence on agonist therapy ([facility]) Other chronic pain Panic disorder without agoraphobia with severe panic attacks Polysubstance dependence ([facility]) Sedative, hypnotic or anxiolytic dependence, in remission ([facility]) Tobacco user Trigger finger of right hand [...] wrist dorsiflexion , finger abduction, and right tobacco dipper. 4/5 hand tobacco dipper on the left Reflexes: 2+ normal and [...] scribed by in my presence, Adelaide Santa, Diet Aide and are both accurate and comp lete. [...]
--- OUTSIDE RECORDS SUMMARY | ~2019-11-02 | XMS | Encounter Summary ---
Demographics + + + | Address | [address] | | | [place] [address] | + + + | Home Phone [...] | Organization | [facility] | [...] Providers + +------+ + | Care Hand Thermal Cutter Name | Role | Phone | + +------+ + PCP | Unavailable | + +------+ + Encounter Details +--------+ + + + + | Date | Type | Department | Care Team | Description | +--------+ + + + + | 01/27/ | Hospital | [facility] | Marine Oden | | | 2011 - | Encounter | MED CTR EMERGENCY | DO Gaurang Drake | | | | | CARL Noonan | [place], [place] | | | 01/28/ | | [place], [place] | [address] | | | 2011 | | [address] | | | | | | [phone] | | | +--------+ + + + [...] At | + + + | [facility] Diagnostic Imaging Department | [facility] | | [address] [facility] | [facility] | | UNENHANCED HEAD CT, [...] | | | Transcribed Date/Time: 01/29/2012 09:47 Glove Presser: | | | <Electronically Signed by Ivan Smalls MD> 01/29/12 1606 | | + + + + + | Procedure Note | + + | Neal, Rad Conversion - 01/04/2014 4:51 PM [facility] | | Diagnostic Imaging Department [address] [...] 09:41 | |Transcribed Date/Time: 01/29/2012 09:47 | |Glove Presser: | |<Electronically Signed by Ivan Smalls MD> [...]
--- OUTSIDE RECORDS SUMMARY | ~2019-11-02 | XMS | Encounter Summary ---
Demographics + + + | Address | [address] | | | [place] [address] | + + + | Home Phone [...] + + + | Author | [place] [employer] [facility] | + + + | Organization | [facility] [employer] [facility] [...] Team Providers + +------+ + | Care Theater Projectionist Name | Role | Phone | [...] | | | Ave Mailcode: CH8N | [place], [place] | | | | | [facility] | [address] | | | | | and Healing, | [phone] | | | | | [facility] | | | | | | Floor [place], [place] | | | | | | [address] | | | | | | [phone] | | | +--------+ + + + [...]
--- OUTSIDE RECORDS SUMMARY | ~2019-11-02 | XMS | Encounter Summary ---
Demographics + + + | Address | [address] | | | [place] [address] | + + + | Home Phone [...] + + | Author | [place] [employer] [facility] | + + + | Organization | [facility] [employer] [facility] | + [...] Team Providers + +------+ + | Care Coding Technician Name | Role | Phone | [...] + + | 08/24/ | Emergency | [facility] Emergency | Tylor Mcclellan, | | | 2010 | | Department [address] | | | | | [address] | [place], [address] | | | | | [facility] | [facility] [place] | | | | | [place], [place] | [place], [place] | | | | | [address] | [address] | | | | | [phone] | [phone] | | | | | | | [...] us take care of you at [facility] today. Follow up with primary care [...] | | + +---------+ + + | [facility] DEPARTMENT OF | | | | [...]
--- OUTSIDE RECORDS SUMMARY | ~2019-11-02 | XMS | Encounter Summary ---
Demographics + + + | Address | [address] | | | [place] [address] | + + + | Home Phone [...] + + + | Author | [place] [employer] [facility] | + + + | Organization | [facility] [facility] | + [...] + +------+ + | Care Ice Cream Van Vendor Name | Role | Phone | [...] | | Ave Mailcode: CH8N | [place], [place] | | | | | [facility] | [address] | | | | | and Healing, | [phone] | | | | | [facility] | | | | | | Floor [place], [place] | | | | | | [address] | | | | | | [phone] | | | +--------+ + + + [...]
--- OUTSIDE RECORDS SUMMARY | ~2019-11-02 | XMS | Encounter Summary ---
Demographics + + + | Address | [address] | | | [place] [address] | + + + | Home Phone [...] + + + | Author | [place] [employer] [facility] | + + + | Organization | [facility] [employer] [facility] | + [...] Providers + +------+ + | Care Can Doffer Name | Role | Phone | + [...] | | | [address] Mailcode: RPB07 | [place], [place] | | | | | [place], [place] | [address] | | | | | [address] | [phone] | | | | | [phone] | | | +--------+ + + + [...]
--- OUTSIDE RECORDS SUMMARY | ~2019-11-02 | XMS | Encounter Summary ---
Demographics + + + | Address | [address] | | | [place] [address] | + + + | Home Phone [...] + + + | Author | [place] [employer] [facility] | + + + | Organization | [facility] [employer] [facility] | [...] Team Providers + +------+ + | Care Bruise Trimmer Name | Role | Phone | + +------+ + | Brenden Benavides MD | PCP | | + +------+ + Encounter Details +--------+ + + + + | Date | Type | Department | Care Team | Description | +--------+ + + + + | 02/22/ | Telephone | [facility] | Brad Currie MD | | | 2006 | | [place] | | | | | | Neuro-Ophthalmology | | | | | | [address] | | | | | | [place] Mailcode: CEI | | | | | | Mailcode: CEI | | | | | | [place], [place] | | | | | | [address] | | | | | | [phone] | | | +--------+ + + + [...]
--- OUTSIDE RECORDS SUMMARY | ~2019-11-02 | XMS | Encounter Summary ---
Demographics + + + | Address | [address] | | | [place] [address] | + + + | Home Phone [...] | Organization | [facility] | [...] Team Providers + +------+ + | Care Mechanic Welder Truck Driver Name | Role | Phone [...] | | [address] [place] | [place] [address] | | | | | [address] | [phone] | | | | | [phone] | | | +--------+ + + + [...]
--- OUTSIDE RECORDS SUMMARY | ~2019-11-02 | XMS | Encounter Summary ---
Demographics + + + | Address | [address] | | | [place] [address] | + + + | Home Phone [...] + + + | Author | [place] [employer] [facility] | + + + | Organization | [facility] [employer] [facility] | + [...] Team Providers + +------+ + | Care Tow Truck Operator Name | Role | Phone | [...] Papilledema | | 2006 | Visit | [place] | [address] | Associated with | | | | Oculoplastics at | [place], [place] | Increased | | | | [place] [address] | [address] | Intracranial | | | | [address] | [phone] | Pressure; Enlarged | | | | Mailcode: CEI | | Blind Spot; | | | | [place], [place] | | Bilateral Headaches | | | | [address] | | | | | | [phone] | | | +--------+---------+ + + + [...] Eye meds: Diamox, Oxycontin, Robaxin. Visual Acuity: [facility] RE 20/20-1 LE 20/25-2 NI Pupil: [...]
--- OUTSIDE RECORDS SUMMARY | ~2019-11-02 | XMS | Encounter Summary ---
Demographics + + + | Address | [address] | | | [place] [address] | + + + | Home Phone [...] + + + | Author | [place] [employer] [facility] | + + + | Organization | [facility] [employer] [facility] | + + [...] Providers + +------+ + | Care Public Services Librarian Name | Role | Phone [...] | | | Ave Mailcode: CH8N | [place], [place] | | | | | [facility] | [address] | | | | | and Healing, | [phone] | | | | | [facility] | | | | | | Floor [place], [place] | | | | | | [address] | | | | | | [phone] | | | +--------+ + + + [...]
--- OUTSIDE RECORDS SUMMARY | ~2019-11-02 | XMS | Encounter Summary ---
Demographics + + + | Address | [address] | | | [place] [address] | + + + | Home Phone [...] | Author | [facility] | | | [...] Team Providers + +------+ + | Care Grey Roll Man Name | Role | Phone | [...] | | | | [address] | [place] [address] | diabetes mellitus | | 05/27/ | | [place], [place] | [phone] | without | | 2017 | | [address] | | complication, | | | | [phone] | | unspecified long | | | [...] 154 Date of Service: 05/27/171842 Status: Signed Quality Control Director: Reynold Garcia MD (Physician) I was informed [...] 05/27/171849 Date of Service: 05/27/171842 Status: Signed Quality Control Director: Mesha Brown RN (Registered Nurse) Pt anxious, [...] Date of Service: 05/27/17 1303 Status: Signed Quality Control Director: Mesha Brown RN (Registered Nurse) Went to [...] Date of Service: 05/27/17 1045 Status: Signed Quality Control Director: Da Goode RN (Registered Nurse) 05/27/17 1042 [...] Oriented Prior functional status independant Power of Side Hemmer No Anticipated Discharge Plan Post Acute Care Needs None at this time Resources Financial concerns No Transportation issues No ( will transport) Patient/Family concerns No Prescription Plan Yes Name of Pharmacy [facility] phone number [phone] Previous home health equipment No Vascular access device No Ostomy/Drains/Appliances No Anticipated Disposition Facility Type Home Met with patient at bedside. Annabella is a 41 year old female with a history of anxiety/depre sssion, HTN, COPD, DM type 2, and IV drug use. She lives in [place], [place] with her daughter 2 6, and 14 year old twins. Her is currently getting a new house ready for them to mov e into and is active in their lives. Annabella went to [facility] for pelvic pain and spotting but left AMA while waiting for MR I results because she couldn't smoke. The hospital called her and recommended her to go to [facility] based on the MRI results. Patient is independent in all ADL's. Because of the IV drug use, sending her home with an I V line is not recommended is she needs outpatient IV abx. Patient's PCP is: Virginia Reddy POURER BUGGY LADLE Patient's insurance:[facility] GUIDE DOG TRAINER; [employer] Coverage concerns:no Medication coverage/concerns: no Community resources utilized / needed: TBD Assistance in transportation: not at this time Identification of any specific education / training: TBD Barriers to Discharge / Alternative housing needed: not at this time Anticipated DCP: Home DA GOODE RN Case Management [phone] orenalicja morley, Andre Marmolejo MD - 05/27/2017 9:46 AM PDT Progress Notes by Andre Alonso MD-R1 at 05/27/17 0946 Author: [email or web address] Service: Hospitalist Author Type: Resident-Y1 Filed: 05/27/171900 Date of Service: 05/27/17945 Status: Attested Quality Control Director: JIMENA [email or web address] (Resident-Y1) Cosigner: Reynold Garcia MD [...] to see pt proactively. IVDU; heroin H/o PREFLIGHT INSPECTOR shunt. [facility] Service: Hospitalist Progress Note Hospital Day: LOS: 0 days Post-Op Day: * No surgery found * SUBJECTIVE Patient Summary: the patient is a 41-year-old female with significant past medical h istory of type II diabetes, hypertension, gastroesophageal reflux disease, depression, IV dr hawa goldsmith who is a transfer from [facility] for further evaluation. Events Overnight: The [...] IV drug abuse who was transferred from [facility] in [place], [place] for further evaluation of suspicious lumbar [...] 05/27/17635 Date of Service: 05/27/17633 Status: Signed Quality Control Director: Cathy Garcia RN (Registered Nurse) Contacted [facility]. Will fax over current microbiology GC test along with most current wound culture results. onver ludwin Transaction, Provider Unknown - 05/27/2017 5:15 AM PDT Progress Notes by Remy Trinidad RPH at 05/27/17514 Author: Remy Trinidad RPH Service: Pharmacy Author Type: Pharmacist Filed: 05/27/17514 Date of Service: 05/27/17514 Status: Signed Quality Control Director: Remy Trinidad RPH (Pharmacist) Note ccl 125.9ml/min [...] NEGATIVE Testing | | | performed at [facility];[address] [place] [address];[place] [address] | | + + + + +---------+ [...] | | | Fingerstick | performed at [facility];[address] | | LAB | | | | [address]da Hammer;[place] | | | | | | [address] | | | | + + + [...] | | | Fingerstick | performed at [facility];[address] | | LAB | | | | [address];[place], [place] | | | | | | [address] | | | | + + + [...] - 1.030 | EXTERNAL | | | [place] | | | LAB | | + [...] | | l squamous | performed at [facility], [address] | | LAB | | | epithelia, | Teresa [address], | | | | | UA | [place] [address] | | | | + + + [...] | | | Patient | performed at [facility] | | LAB | | | | [address] Hammer;[place], [place] | | | | | | [address] | | | | + + + [...] | | | | | performed at [facility];[address] | | | | | | [address] Clark;[place], [place] | | | | | | [address] | | | | + + + [...] | | | Basophils | performed at [facility], [address] | K/uL | LAB | | | | Teresa Hammer, | | | | | | [place] [address] | | | | + + + [...] EXTERNAL | | | | performed at [facility], [address] | | LAB | | | | Teresa Hammer, | | | | | | [place] [address] | | | | + + + [...] | | | | | [place] [address] | | | | + + + [...] + + | Hemoglobin | 5.7Comment: The Cook Islander | 4.0 - 6.0 % | EXTERNAL [...] | | | | | performed at [facility], [address] | | | | | | [facility] [place] | | | | | | [place] [address] | | | | + + + [...] [address], | | | | | | [place] [address] | | | | + + + [...] | | | Fingerstick | performed at [facility];[address] | | LAB | | | | Nereyda Hammre;[place] | | | | | | [address] | | | | + + + [...] | s Screen, | Positive cutoff for FILIBRETO | | LAB | | | Urine [...] | | | | | performed at [facility];[address] | | | | | | [address] Hammer;[place], [place] | | | | | | [address] | | | | + + + [...] EXTERNAL | | | | performed at [facility];888 | mmol/L | LAB | | | | [address]da Clark;[place], [place] | | | | | | [address] | | | | + + + [...] at | | | | | | [facility];[address] [place] [address] | | | | | | Blvd;[place] [address] | | | | + + + [...] EXTERNAL | | | | performed at [facility];[address] | | LAB | | | | Nereyda Clark;[place], [place] | | | | | | [address] | | | | + + + [...] EXTERNAL | | | | performed at [facility] | | LAB | | | | Nereyda Hammer;[place], [place] | | | | | | [address] | | | | + + + [...] | | | QUALITATIVE | performed at [facility] | | LAB | | | | [facility];[place], [place] | | | | | | [address] | | | | + + + [...] - 1.030 | EXTERNAL | | | [place] | | | LAB | | + [...] | | | Cells | performed at [facility];[address] | | LAB | | | | [address] Hammer;[place], [place] | | | | | | [address] | | | | + + + [...] Type 2 diabetes mellitus without complication, unspecified long term care social worker insulin use | | status | + [...]
--- OUTSIDE RECORDS SUMMARY | ~2019-11-02 | XMS | Encounter Summary ---
Demographics + + + | Address | [address] | | | [place] [address] | + + + | Home Phone [...] + + | Author | [place] [employer] [facility] | + + + | Organization | [facility] [employer] [facility] | + [...] Providers + +------+ + | Care Auto Crane Driver Name | Role | Phone | [...] | | [facility] [address] | [place] | | | | | [place] Mailcode: CH8N | Neurosurgery [address] | | | | | [facility] | [address] | | | | | and Healing, | [place], [place] | | | | | [place] [address] | [address] | | | | | Floor [place], [place] | | | | | | [address] | | | | | | [phone] | | | +--------+ + + + [...]
--- OUTSIDE RECORDS SUMMARY | ~2019-11-02 | XMS | Encounter Summary ---
Demographics + + + | Address | [address] | | | [place] [address] | + + + | Home Phone [...] + + + | Author | [place] [employer] [facility] | + + + | Organization | [facility] [employer] [facility] | + [...] + +------+ + | Care Caramel Cutter Helper Name | Role | Phone | [...] Hospital | | | | | | [place], [place] | | | | | | [address] | | | | | | [phone] | | | +--------+ + + + [...]
--- OUTSIDE RECORDS SUMMARY | ~2019-11-02 | XMS | Encounter Summary ---
Demographics + + + | Address | [address] | | | [place] [address] | + + + | Home Phone [...] | Organization | [facility] | | [...] Team Providers + +------+ + | Care Nail Professional Name | Role | Phone | + +------+ + PCP | Unavailable | + +------+ + Encounter Details +--------+ + + + + | Date | Type | Department | Care Team | Description | +--------+ + + + + | 10/21/ | Hospital | [facility] | | | | 1991 | Encounter | [facility] | | | | | | [facility] [address] | | | | | | [place], | | | | | | [place] [address] | | | | | | [phone] | | | +--------+ + + + [...]
--- OUTSIDE RECORDS SUMMARY | ~2019-11-02 | XMS | Encounter Summary ---
Demographics + + + | Address | [address] | | | [place] [address] | + + + | Home Phone [...] | Organization | [facility] | [...] Providers + +------+ + | Care Media Consultant Name | Role | Phone | + +------+ + PCP | Unavailable | + +------+ + Encounter Details +--------+ + + + + | Date | Type | Department | Care Team | Description | +--------+ + + + + | 07/30/ | Hospital | [facility] | | | | 2008 - | Encounter | MED CTR MED ONC | | | | | | [address] | | | | 08/02/ | | [place] [address] | | | | 2008 | | [phone] | | | +--------+ + + + [...]
--- OUTSIDE RECORDS SUMMARY | ~2019-11-02 | XMS | Encounter Summary ---
Demographics + + + | Address | [address] | | | [place] [address] | + + + | Home Phone [...] + + + | Author | [place] [employer] [facility] | + + + | Organization | [facility] [employer] [facility] | + + [...] + +------+ + | Care Technical Sales Specialist Name | Role | Phone | [...] | | [place] Mailcode:OP14B | Sandra Maloney [place], | | | | | [place] [employer] | [place] [address] | | | | | [place], [place] | | | | | | [address] | | | | | | [phone] | | | +--------+ + + + [...]
--- OUTSIDE RECORDS SUMMARY | ~2019-11-02 | XMS | Encounter Summary ---
Demographics + + + | Address | [address] | | | [place] [address] | + + + | Home Phone [...] + + + | Author | [place] [employer] [facility] | + + + | Organization | [facility] [employer] [facility] [...] Providers + +------+ + | Care Application Release Manager Name | Role | Phone | + +------+ + | Pedro Luis Sams MD | PCP | | + +------+ + Encounter Details +--------+ + + + + | Date | Type | Department | Care Team | Description | +--------+ + + + + | 08/31/ | Telephone | [facility] | Leticia Pitts MD | | | 2010 | | [place]/Ophthalmol | | | | | | leon at [facility] [address] | | | | | | [address] Mailcode: | | | | | | CH11P Center for | | | | | | Health and Healing, | | | | | | [facility] | | | | | | Floor [place], [place] | | | | | | [address] | | | | | | [phone] | | | +--------+ + + + [...]
--- OUTSIDE RECORDS SUMMARY | ~2019-11-02 | XMS | Encounter Summary ---
Demographics + + + | Address | [address] | | | [place] [address] | + + + | Home Phone [...] + + + | Author | [place] [employer] [facility] | + + + | Organization | [facility] [employer] Science [facility] | + [...] Team Providers + +------+ + | Care Benzene Operator Name | Role | Phone | [...] Headache | | 2007 | | [facility] | [address] | | | | | [address] Mailcode: PV01 | [place], [place] | | | | | Physician's | [address] | | | | | [place], | [phone] | | | | | [place] [address] | | | | | | [phone] | | | +--------+ + + + [...]
--- OUTSIDE RECORDS SUMMARY | ~2019-11-02 | XMS | Encounter Summary ---
Demographics + + + | Address | [address] | | | [place] [address] | + + + | Home Phone [...] + + + | Author | [place] [employer] [facility] | + + + | Organization | [facility]-in [facility] | + [...] Providers + +------+ + | Care Test Engine Operator Name | Role | Phone | [...] | | | Ave Mailcode: CH8N | [place], [place] | | | | | [facility] | [address] | | | | | and Healing, | [phone] | | | | | [facility] | | | | | | Floor [place], [place] | | | | | | [address] | | | | | | [phone] | | | +--------+ + + + [...]
--- OUTSIDE RECORDS SUMMARY | ~2019-11-02 | XMS | Encounter Summary ---
Demographics + + + | Address | [address] | | | [place] [address] | + + + | Home Phone [...] + + + | Author | [place] [employer] [facility] | + + + | Organization | [facility] [employer] [facility] | + + [...] Providers + +------+ + | Care Production Superintendent Hydro Name | Role | Phone | + +------+ + | Dennis Maddox | PCP | | + +------+ + Encounter Details +--------+ + + + + | Date | Type | Department | Care Team | Description | +--------+ + + + + | 02/28/ | Emergency | [facility] | | | | 2013 - | | Department [address] | | | | | [address] | | | | 03/01/ | | [facility] | | | | 2013 | | [place], [place] | | | | | | [address] | | | | | | [phone] | | | +--------+ + + + [...]
--- OUTSIDE RECORDS SUMMARY | ~2019-11-02 | XMS | Encounter Summary ---
Demographics + + + | Address | [address] | | | [place] [address] | + + + | Home Phone [...] + + + | Author | [place] [employer] [facility] | + + + | Organization | [facility] [facility] | + [...] + +------+ + | Care Machine Operator Name | Role | Phone [...] Cerebri | | 2006 | Visit | [address] | | (Primary Dx) | | | | Neuro-Ophthalmology | | | | | | [address] | | | | | | [place] Mailcode: CEI | | | | | | Mailcode: CEI | | | | | | [place], [place] | | | | | | [address] | | | | | | [phone] | | | +--------+---------+ + + + [...] Referred by: CASIMIRO PAYTON MD [address] [place] [address] Symptoms: Patient feels things are better. Vision [...] Brad Currie MD Neuro-Ophthalmology and Cerebrovascular Disease Bowling Ball Molder of Ophthalmology, Neurology, and Neurosurgery documented in [...]
--- OUTSIDE RECORDS SUMMARY | ~2019-11-02 | XMS | Encounter Summary ---
Demographics + + + | Address | [address] | | | [place] [address] | + + + | Home Phone [...] | Organization | [facility] | [...] Providers + +------+ + | Care Lumber Handler Name | Role | Phone | [...] [place] | | | | | | [address] | | | | | | [phone] | | | +--------+ + + + [...]
--- OUTSIDE RECORDS SUMMARY | ~2019-11-02 | XMS | Encounter Summary ---
Demographics + + + | Address | [address] | | | [place] [address] | + + + | Home Phone [...] | Organization | [facility] | | | [...] Providers + +------+ + | Care Nurse Practitioner Name | Role | Phone | + +------+ + PCP | Unavailable | + +------+ + Encounter Details +--------+ + + + + | Date | Type | Department | Care Team | Description | +--------+ + + + + | 10/18/ | Hospital | [facility] | | | | 1991 | Encounter | MED [facility] W[facility]ENS | | | | | | HEALTH [address] | | | | | | [place], | | | | | | [place] [address] | | | | | | [phone] | | | +--------+ + + + [...]
--- OUTSIDE RECORDS SUMMARY | ~2019-11-02 | XMS | Encounter Summary ---
Demographics + + + | Address | [address] | | | [place] [address] | + + + | Home Phone [...] + + + | Author | [place] [employer] [facility] | + + + | Organization | [facility] [employer] [facility] | + [...] Team Providers + +------+ + | Care Turn Out Worker Name | Role | Phone | [...] | | | Ave Mailcode: CH8N | [place], [place] | | | | | [facility] | [address] | | | | | and [facility], | [phone] | | | | | [facility] | | | | | | Floor [place], [place] | | | | | | [address] | | | | | | [phone] | | | +--------+ + + + [...]
--- OUTSIDE RECORDS SUMMARY | ~2019-11-02 | XMS | Encounter Summary ---
Demographics + + + | Address | [address] | | | [place] [address] | + + + | Home Phone [...] + + + | Author | [place] [employer] [facility] | + + + | Organization | [facility] [employer] [facility] [...] Team Providers + +------+ + | Care Enrollment Services Vice President Name | Role | [...] | Headache | | 2014 | | [place] | [address] | | | | | Neuro-Ophthalmology | [facility] [place] | | | | | at [facility] [address] | [address] | | | | | Ave Mailcode: [facility] | [phone] | | | | | [facility] | | | | | | and Healing, | | | | | | Building | | | | | | Floor [place], [place] | | | | | | [address] | | | | | | [phone] | | | +--------+ + + + [...]
--- OUTSIDE RECORDS SUMMARY | ~2019-11-02 | XMS | Encounter Summary ---
Demographics + + + | Address | [address] | | | [place] [address] | + + + | Home Phone [...] + + | Author | [place] [employer] [facility] | + + + | Organization | [facility] [employer] [facility] | + [...] Team Providers + +------+ + | Care Heater Planer Operator Name | Role | Phone | [...] Request (Pt | | 2006 | | [place] | [address] | requests more pain | | | | Oculoplastics at | [place], [place] | medication) | | | | Maicol Perez [facility] | [address] | | | | | [address] | [phone] | | | | | Mailcode: PATTI | | | | | | [place], [place] | | | | | | [address] | | | | | | [phone] | | | +--------+--------+ + + + [...]
--- OUTSIDE RECORDS SUMMARY | ~2019-11-02 | XMS | Encounter Summary ---
Demographics + + + | Address | [address] | | | [place] [address] | + + + | Home Phone [...] + + + | Author | [place] [employer] [facility] | + + + | Organization | [facility] [employer] [facility] [...] Providers + +------+ + | Care Senior Genetic Counselor Name | Role | Phone | [...] Cerebri; | | 2005 | Visit | [place] | | Common Migraine | | | | Neuro-Ophthalmology | | without Mention of | | | | [address] | | Intractable Migraine | | | | Blvd Mailcode: CEI | | | | | | Mailcode: [facility] | | | | | | [place], [place] | | | | | | [address] | | | | | | [phone] | | | +--------+---------+ + + + [...] 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
--- OUTSIDE RECORDS SUMMARY | ~2019-11-02 | XMS | Encounter Summary ---
Demographics + + + | Address | [address] | | | [place] [address] | + + + | Home Phone [...] + + + | Author | [place] [email or web address] [facility] | + + + | Organization | [facility] [employer]Way [facility] | + + [...] Providers + +------+ + | Care Rn Ortho Name | Role | Phone | + +------+ + | Yeison Simms MD | PCP | Unavailable | + +------+ + Encounter Details +--------+ + + + + | Date | Type | Department | Care Team | Description | +--------+ + + + + | 12/24/ | Telephone | Neurosurgery at | Kiki [place], | | | 2008 | | [facility] [address] | [place] | | | | | [place] Mailcode: CH8N | Neurosurgery [address] | | | | | [facility] | [address] | | | | | and Healing, | [place], [place] | | | | | [place] [address] | [address] | | | | | Floor [place], [place] | | | | | | [address] | | | | | | [phone] | | | +--------+ + + + [...]
--- OUTSIDE RECORDS SUMMARY | ~2019-11-02 | XMS | Encounter Summary ---
Demographics + + + | Address | [address] | | | [place] [address] | + + + | Home Phone [...] + + + | Author | [place] [employer] [facility] | + + + | Organization | [facility] Field Agent [facility] | + [...] Providers + +------+ + | Care Internal Communications Writer Name | Role | Phone | [...] Cerebri; | | 2006 | Visit | [place] | [address] | Pain in or Around | | | | Oculoplastics at | [place], [place] | Eye | | | | [place] [address] | [address] | | | | | [address] | [phone] | | | | | Mailcode: CESimon | | | | | | [place], [place] | | | | | | [address] | | | | | | [phone] | | | +--------+---------+ + + + [...] to be seen here or by an merchandising manager in [facility], but she says she does not have transportation. I will call in Vicodin #20, pt to call i mmediately if there is any worsening. Pt states lucho lump in left presybeterian is gone. No pain. Pt. Had cough [...]
--- OUTSIDE RECORDS SUMMARY | ~2019-11-02 | XMS | Encounter Summary ---
Demographics + + + | Address | [address] | | | [place] [address] | + + + | Home Phone [...] + | Organization | [facility] | | [...] Providers + +------+ + | Care Cement Finisher Name | Role | Phone | + +------+ + PCP | Unavailable | + +------+ + Encounter Details +--------+ + + + + | Date | Type | Department | Care Team | Description | +--------+ + + + + | 07/21/ | Hospital | [facility] | | | | 1990 | Encounter | MED CTR EMERGENCY | | | | | | CENTER [address] | | | | | | [place] | | | | | | [address] | | | | | | [phone] | | | +--------+ + + + [...]
--- OUTSIDE RECORDS SUMMARY | ~2019-11-02 | XMS | Encounter Summary ---
Demographics + + + | Address | [address] | | | [place] [address] | + + + | Home Phone [...] Organization | [facility] | [...] Providers + +------+ + | Care School Psychometrist Name | Role | Phone | + +------+ + PCP | Unavailable | + +------+ + Encounter Details +--------+ + + + + | Date | Type | Department | Care Team | Description | +--------+ + + + + | 10/04/ | Hospital | [facility] | | | | 1991 | Encounter | [facility] | | | | | | HEALTH [address] | | | | | | [place], | | | | | | [place] [address] | | | | | | [phone] | | | +--------+ + + + [...]
--- OUTSIDE RECORDS SUMMARY | ~2019-11-02 | XMS | Encounter Summary ---
Demographics + + + | Address | [address] | | | [place] [address] | + + + | Home Phone [...] + | Organization | [facility] | [...] Team Providers + +------+ + | Care Proof Technician Name | Role | Phone | + +------+ + PCP | Unavailable | + +------+ + Encounter Details +--------+ + + + + | Date | Type | Department | Care Team | Description | +--------+ + + + + | 10/14/ | Hospital | [facility] | | | | 1991 | Encounter | MED [facility] | | | | | | HEALTH [address] | | | | | | [place], | | | | | | [place] [address] | | | | | | [phone] | | | +--------+ + + + [...]
--- OUTSIDE RECORDS SUMMARY | ~2019-11-02 | XMS | Encounter Summary ---
Demographics + + + | Address | [address] | | | [place] [address] | + + + | Home Phone [...] + + + | Author | [place] [email or web address] [facility] | + + + | Organization | [facility] [employer] [facility] | + [...] Team Providers + +------+ + | Care Gig Tender Name | Role | Phone | [...] Neurosurgery [address] | | | | | [facility] | [address] | | | | | and Healing, | [place], [place] | | | | | Building | [address] | | | | | Floor [place], [place] | | | | | | [address] | | | | | | [phone] | | | +--------+--------+ + + + [...]
--- OUTSIDE RECORDS SUMMARY | ~2019-11-02 | XMS | Clinical Summary ---
Demographics + + + | Address | [address] | | | [place] [address] | + + + | Home Phone | | + + + | Preferred Language | Unknown | + + + | Marital Status | | + + + | Zoroastrian Affiliation | Unknown | + + + | Race | Unknown | + + + | Ethnic Group | Unknown | + + + Author + + + | Author | [employer] (Historical as of | | | 07-14-19) | + + + | Organization | [facility] (Historical as of | | | 07-14-19) [...] Providers + +------+ + | Care Pneumatic Deicer Inspector Name | Role | Phone | [...] +------+-------+ + | MEDICAID | MEDICA | [id number] | | | [address] | | | [place] | | | | [place], [place] | | | [place] | | | | [address] | + +--------+ +------+-------+ + | [facility] | YELLOW | [id number] | | | | | PLANS | [...] | | sameera/Jean-Claude | | 1974 | [phone] | [place] | | | rene | | | [address] | [address] | + +--------+ +--------+ + +
== END 2019-11-02 13:06 | disposition home or self-care (01) ==
LOC: ED 10:50
DX: S29.011A Strain of muscle and tendon of front wall of thorax, initial encounter (principal); J44.0 Chronic obstructive pulmonary disease with (acute) lower respiratory infection; J18.9 Pneumonia, unspecified organism; I10 Essential (primary) hypertension; E11.9 Type 2 diabetes mellitus without complications; E66.9 Obesity, unspecified; Z87.891 Personal history of nicotine dependence; Z88.1 Allergy status to other antibiotic agents; Z88.5 Allergy status to narcotic agent; Z88.8 Allergy status to other drugs, medicaments and biological substances; X58.XXXA Exposure to other specified factors, initial encounter
CPT/HCPCS: 71260; 99285-25; Q9967

== ENCOUNTER 2019-12-04 15:06 | Emergency (ER) | payer OTHER ==
[~2019-12-04] VITALS: Ht 165.1 cm; Wt 115.7 kg
--- OUTSIDE RECORDS SUMMARY | ~2019-12-04 | XMS | Encounter Summary ---
Demographics + + + | Address | [address] | | | [place] [address] | + + + | Home Phone | | + + + | Preferred Language | Unknown | + + + | Marital Status | | + + + | Hindu Affiliation | NON | + + + | Race | or | + + + | Ethnic Group | Not or | + + + Author + + + | Author | [place] [employer] [facility] | + + + | Organization | [facility] [employer] [facility] | + + + | Address | Unknown | + + + | Phone | Unavailable | + + + Support + + +---------+ + | Name | Relationship | Address | Phone | + + +---------+ + | Ruby Au | ECON | Unknown | | + + +---------+ + Care Team Providers + +------+ + | Care Natural Gas Plant Supervisor Name | Role | Phone | + +------+ + | Yeison Simms MD | PCP | Unavailable | + +------+ + Reason for Visit + + + | Reason | Comments | + + + | Erroneous Encounter | | | - Disregard | | + + + Encounter Details +--------+ + + + + | Date | Type | Department | Care Team | Description | +--------+ + + + + | 08/14/ | Telephone | Neurosurgery at | Kiki [place], | Erroneous Encounter | | 2007 | | [facility] [address] | [place] | - Disregard | | | | Ave Mailcode: CH8N | Neurosurgery [address] | | | | | [facility] | [address] | | | | | and Healing, | [place], [place] | | | | | [facility] | [address] | | | | | Floor [place], [place] | | | | | | [address] | | | | | | [phone] | | | +--------+ + + + [...]
--- OUTSIDE RECORDS SUMMARY | ~2019-12-04 | XMS | Encounter Summary ---
Demographics + + + | Address | [address] | | | [place] [address] | + + + | Home Phone | | + + + | Preferred Language | Unknown | + + + | Marital Status | | + + + | Restorationism Affiliation | NON | + + + | Race | or | + + + | Ethnic Group | Not or | + + + Author + + + | Author | [place] [employer] [facility] | + + + | Organization | [facility] [facility] | + + + | Address | Unknown | + + + | Phone | Unavailable | + + + Support + + +---------+ + | Name | Relationship | Address | Phone | + + +---------+ + | Ruby Au | ECON | Unknown | | + + +---------+ + Care Team Providers + +------+ + | Care Performance Test Architect Name | Role | Phone | + +------+ + | Brenden Benavides MD | PCP | | + +------+ + Reason for Visit +--------+ + | Reason | Comments | +--------+ + | Other | | +--------+ + Encounter Details +--------+ + + + + | Date | Type | Department | Care Team | Description | +--------+ + + + + | 09/28/ | Telephone | Neurosurgery [address] | [address] | Other | | 2005 | | [address] | [address] | | | | | [place] Mailcode:OP14B | [place], | | | | | [facility] | [place] [address] | | | | | [place], [place] | | | | | | [address] | | | | | | [phone] | | | +--------+ + + + + Social History + + + +--------+------+ | Tobacco Use | Types | Packs/Day | Years | Date | | | | | Used | | + + + +--------+------+ | Current Every Day | Cigarettes | 0.5 | 15 | | | Smoker | [...]
--- OUTSIDE RECORDS SUMMARY | ~2019-12-04 | XMS | Encounter Summary ---
Demographics + + + | Address | [address] | | | [place] [address] | + + + | Home Phone | | + + + | Preferred Language | Unknown | + + + | Marital Status | | + + + | Buddhist Affiliation | NON | + + + | Race | or | + + + | Ethnic Group | Not or | + + + Author + + + | Author | [place] [employer] [facility] | + + + | Organization | [facility] [employer] [facility] | + [...] Team Providers + +------+ + | Care Professional System Administrator Name | Role | Phone | + +------+ + | Brenden Benavides MD | PCP | | + +------+ + Reason for Visit + + + | Reason | Comments | + + + | Vision disorder | headache | + + + Encounter Details +--------+---------+ + + + | Date | Type | Department | Care Team | Description | +--------+---------+ + + + | 11/30/ | Office | [facility] | Brad Currie MD | Pseudotumor Cerebri | | 2006 | Visit | [place] | | (Primary Dx) | | | | Neuro-Ophthalmology | | | | | | [address] [facility] | | | | | | Mailcode: PATTI | | | | | | [place] [address] | | | | | | [phone] | | | +--------+---------+ + + + [...] documented as of this encounter Progress Notes [place] - 11/30/2006 11:58 AM PSTFormatting of this note might be different from the o lalito. Neuro-Ophthalmology Return Patient Evaluation 11/30/2006 Referred by: No referring provider defined for this encounter. Symptoms: she is having fluctuating headaches and been increasing her lowering her diamox. 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 I restarted her on 500 mg bid at that time. She had called regarding a severe headache a nd had doubled her dosage for a day or so and then continued on her current dose of 500 bid. She is still having headache, but it is not as severe as when she had the severe headache about 1 month ago. She denies pulsatile tinnitus and transient visual obscurations. She howell s only lost a couple of pounds in weight. Current outpatient prescriptions: DIAMOX [place] 500 mg bid IBUPROFEN 800 MG TAB 1 am and 1 nite She is not taking the ibuprofen. Allergies: Codeine, Cephalexin Review of Systems: Cardiac: negative Pulmonary: negative GI: negative : negative Musculoskeletal: negative Psych/Neuro: negative General Appearance: Healthy, no apparent distress. Visual Acuity: Vasc Vacc VAph RE 20/20-1 20/- 20/- LE 20/20 20/- 20/- Color Vision: RE AOHRR 10/10 Ishihara -/16 LE AOHRR 8.5/10 Ishihara -/16 Lids: Normal EOM's: Fixation: normal Saccades: normal Pursuit: normal Convergence: normal Nystagmus: none Strabimus: no Pupils: RE LE Sluggish: no no RAPD: no yes Dilation Lag: no no Size (mm) Dark: Size (mm) Light: Confrontational VF: normal Visual Neglect: none GOLDMANN PERIMETRY FIRST EYE TESTED: Right Examiner: Kush Wray OD: Add OS: FINDINGS: Static and kinetic perimetry was performed using 3 isopters OU. Fixation was exc ellent. Cooperation was good. Foveal threshold was I1e OD and I1e OS. There were no abnor malities in either eye. Alert and Oriented x 3: yes Verbal Memory: grossly normal Speech normal?: yes Face normal?: Yes Fundi: Dilated Funduscopy revealed no abnormalities of optic nerves, maculae, or blood vessels OD; however , the nerve OS is mild to moderately swollen. she has venous pulsations OD. Impression: 1) Active pseudotumor cerebri Plan: Since her disc edema is currently present only in one eye I am going to get an ultra sound to rule out drusen OS. I am also going to increase her Diamox to 1000 bid. She will return in 3-4 weeks. Brad Currie MD Neuro-Ophthalmology and Cerebrovascular Disease Spanish Interpreter/Translator of Ophthalmology, Neurology, and Neurosurgery documented in this encounter Plan of Treatment + + +--------+ + + | Name | Type | Priori | Associated Diagnoses | Order Schedule | | | | ty | | | + + +--------+ + + | ULTRASOUND, B SCAN | Procedures | Routin | Pseudotumor | Expected: | | | | e | Cerebri | 11/30/2006, Expires: | | | | | | 01/29/2007 | + + +--------+ + + | HI VISUAL FIELD | Procedures | Routin | Pseudotumor | Ordered: 12/02/2006 | | EXAM,EXTENDED | | e | Cerebri | | + + +--------+ + + documented as of this encounter Visit Diagnoses + + | Diagnosis | + + | Pseudotumor cerebri - Primary Benign intracranial hypertension | + + documented in this encounter"
--- OUTSIDE RECORDS SUMMARY | ~2019-12-04 | XMS | Encounter Summary ---
Demographics + + + | Address | [address] | | | [place] [address] | + + + | Home Phone | | + + + | Preferred Language | Unknown | + + + | Marital Status | | + + + | Jew Affiliation | NON | + + + | Race | or | + + + | Ethnic Group | Not or | + + + Author + + + | Author | [place] [employer] [facility] | + + + | Organization | [facility] [employer] [facility] | + + + | Address | Unknown | + + + | Phone | Unavailable | + + + Support + + +---------+ + | Name | Relationship | Address | Phone | + + +---------+ + | Ruby Au | ECON | Unknown | | + + +---------+ + Care Team Providers + +------+ + | Care Oil Pipe Inspector Helper Name | Role | Phone | + +------+ + | Pedro Luis Sams MD | PCP | | + +------+ + Encounter Details +--------+ + + + + | Date | Type | Department | Care Team | Description | +--------+ + + + + | 02/19/ | Telephone | Neurosurgery at | Sam Pedroza MD | | | 2012 | | [facility] [address] | [address] | | | | | Ave Mailcode: CH8N | [place], [place] | | | | | [facility] | [address] | | | | | and Healing, | [phone] | | | | | [facility] | | | | | | Floor [place], [place] | | | | | | [address] | | | | | | [phone] | | | +--------+ + + + [...]
--- OUTSIDE RECORDS SUMMARY | ~2019-12-04 | XMS | Encounter Summary ---
Demographics + + + | Address | [address] | | | [place] [address] | + + + | Home Phone | | + + + | Preferred Language | Unknown | + + + | Marital Status | | + + + | Restoration Affiliation | Unknown | + + + | Race | Unknown | + + + | Ethnic Group | Unknown | + + + Author + + + | Author | [facility] | | | and [place] | + + + | Organization | [facility] | | | and [place] [...] Team Providers + +------+ + | Care Financial Planning Analyst Name | Role | Phone | + +------+ + PCP | Unavailable | + +------+ + Encounter Details +--------+ + + + + | Date | Type | Department | Care Team | Description | +--------+ + + + + | 01/15/ | Hospital | [facility] | [place] | | | 2011 | Encounter | MED CTR EMERGENCY | DO Gaurang Drake | | | | | [address] | [place], [place] | | | | | [place], [place] | [address] | | | | | [address] | | | | | | [phone] | | | +--------+ + + + [...]
--- OUTSIDE RECORDS SUMMARY | ~2019-12-04 | XMS | Encounter Summary ---
Demographics + + + | Address | [address] | | | [place] [address] | + + + | Home Phone | | + + + | Preferred Language | Unknown | + + + | Marital Status | | + + + | Faith Affiliation | Unknown | + + + | Race | Unknown | + + + | Ethnic Group | Unknown | + + + Author + + + | Author | [facility] | | | and [place] | + + + | Organization | [facility] | | | and [...] Team Providers + +------+ + | Care Stock Grader Name | Role | Phone | + +------+ + PCP | Unavailable | + +------+ + Encounter Details +--------+ + + + + | Date | Type | Department | Care Team | Description | +--------+ + + + + | 04/20/ | Hospital | [facility] | | | | 1995 | Encounter | MED CTR EMERGENCY | | | | | | CENTER [address] | | | | | | [place] | | | | | | [address] | | | | | | [phone] | | | +--------+ + + + [...]
--- OUTSIDE RECORDS SUMMARY | ~2019-12-04 | XMS | Encounter Summary ---
Demographics + + + | Address | [address] | | | [place] [address] | + + + | Home Phone | | + + + | Preferred Language | Unknown | + + + | Marital Status | | + + + | Restorationist Affiliation | Unknown | + + + | Race | Unknown | + + + | Ethnic Group | Unknown | + + + Author + + + | Author | [facility] | | | and [place] | + + + | Organization | [facility] | | [...] Team Providers + +------+ + | Care Circulation Worker Name | Role | Phone | + +------+ + PCP | Unavailable | + +------+ + Encounter Details +--------+ + + + + | Date | Type | Department | Care Team | Description | +--------+ + + + + | 09/20/ | Hospital | [facility] | | | | 1991 | Encounter | MED CTR WOMENS | | | | | | HEALTH SV [address] | | | | | | [place], | | | | | | [place] [address] | | | | | | [phone] | | | +--------+ + + + [...]
--- OUTSIDE RECORDS SUMMARY | ~2019-12-04 | XMS | Encounter Summary ---
Demographics + + + | Address | [address] | | | [place] [address] | + + + | Home Phone | | + + + | Preferred Language | Unknown | + + + | Marital Status | | + + + | Quaker Affiliation | Unknown | + + + | Race | Unknown | + + + | Ethnic Group | Unknown | + + + Author + + + | Author | [facility] | | | and [place] | + + + | Organization | [facility] | | | and [place] [...] Team Providers + +------+ + | Care Monorail Helper Name | Role | Phone | + +------+ + PCP | Unavailable | + +------+ + Encounter Details +--------+ + + + + | Date | Type | Department | Care Team | Description | +--------+ + + + + | 08/10/ | Hospital | [facility] | | | | 1990 | Encounter | MED CTR EMERGENCY | | | | | | CENTER [address] | | | | | | [place] | | | | | | [address] | | | | | | [phone] | | | +--------+ + + + [...]
--- OUTSIDE RECORDS SUMMARY | ~2019-12-04 | XMS | Encounter Summary ---
Demographics + + + | Address | [address] | | | [place] [address] | + + + | Home Phone | | + + + | Preferred Language | Unknown | + + + | Marital Status | | + + + | Zoroastrianism Affiliation | Unknown | + + + | Race | Unknown | + + + | Ethnic Group | Unknown | + + + Author + + + | Author | [facility] | | | and [place] | + + + | Organization | [facility] | | | and [place] [...] Team Providers + +------+ + | Care Second Class Welder Name | Role | Phone | + +------+ + PCP | Unavailable | + +------+ + Encounter Details +--------+ + + + + | Date | Type | Department | Care Team | Description | +--------+ + + + + | 07/12/ | Hospital | [facility] | Conversion | | | 2010 | Encounter | HEART MED CTR | Transaction, | | | | | EMERGENCY CENTER | Provider Unknown | | | | | [address] | | | | | | [place] | (Fax) | | | | | [address] | | | | | | [phone] | | | +--------+ + + + [...]
--- OUTSIDE RECORDS SUMMARY | ~2019-12-04 | XMS | Encounter Summary ---
Demographics + + + | Address | [address] | | | [place] [address] | + + + | Home Phone | | + + + | Preferred Language | Unknown | + + + | Marital Status | | + + + | Sikhism Affiliation | NON | + + + | Race | or | + + + | Ethnic Group | Not or | + + + Author + + + | Author | [place] [facility] | + + + | Organization | [facility] [employer] [facility] | + + + | Address | Unknown | + + + | Phone | Unavailable | + + + Support + + +---------+ + | Name | Relationship | Address | Phone | + + +---------+ + | Ruby Au | ECON | Unknown | | + + +---------+ + Care Team Providers + +------+ + | Care Mens Locker Room Attendant Name | Role | Phone | + +------+ + | Brneden Benavides MD | PCP | | + +------+ + Reason for Visit +--------+ + | Reason | Comments | +--------+ + | Other | | +--------+ + Encounter Details +--------+ + + + + | Date | Type | Department | Care Team | Description | +--------+ + + + + | 09/06/ | Telephone | Neurosurgery 3250 | J Carlos Nice, | Other | | 2005 | | [facility] | [place] [address] | | | | | [address] Mailcode:OP14B | [place], [place] | | | | | [facility] | [address] | | | | | [place], [place] | | | | | | [address] | | | | | | [phone] | | | +--------+ + + + [...]
--- OUTSIDE RECORDS SUMMARY | ~2019-12-04 | XMS | Encounter Summary ---
Demographics + + + | Address | [address] | | | [place] [address] | + + + | Home Phone | | + + + | Preferred Language | Unknown | + + + | Marital Status | | + + + | Confucianist Affiliation | NON | + + + | Race | or | + + + | Ethnic Group | Not or | + + + Author + + + | Author | [place] [employer] [facility] [employer] [facility] | + + + | Organization | [facility] | + + + | Address | Unknown | + + + | Phone | Unavailable | + + + Support + + +---------+ + | Name | Relationship | Address | Phone | + + +---------+ + | Ruby Au | ECON | Unknown | | + + +---------+ + Care Team Providers + +------+ + | Care Wirer Helper Name | Role | Phone | + +------+ + | Brenden Benavides MD | PCP | | + +------+ + Reason for Referral Consultation (Routine) +--------+--------+ + + + + | Status | Reason | Specialty | Diagnoses / | Referred By | Referred To | | | | | Procedures | Contact | Contact | +--------+--------+ + + + + | Closed | | Interventiona | Diagnoses | Johan, | Kasia, | | | | l Radiology | Pseudotumor | Pascual Gregory MD | MD Casimiro | | | | | cerebri | | [address] | | | | | Procedures | | Ave | | | | | REFERRAL TO | | [place], [place] | | | | | NEUROINTERVE | | [address] | | | | | NTIONAL | | Phone: | | | | | RADIOLOGY | | [phone] | | | | | PRACTICE | | Fax: | | | | | | | [phone] | +--------+--------+ + + + + Reason for Visit + + + | Reason | Comments | + + + | Follow-up in | | | outpatient clinic | | + + + Encounter Details +--------+---------+ + + + | Date | Type | Department | Care Team | Description | +--------+---------+ + + + | 05/01/ | Office | Neurosurgery 3[address] | Casimiro Payton MD | Pseudotumor Cerebri | | 2007 | Visit | [address] | [address] | (Primary Dx) | | | | Mailcode:OP14B | [place], [place] | | | | | Outpatient Clinic | [address] | | | | | Building [place], | [phone] | | | | | [place] [address] | | | | | | [phone] | | | +--------+---------+ + + + [...] documented as of this encounter Progress Notes Casimiro Payton - 05/08/2008 9:35 AM PDTI saw and evaluated the patient. I agree with the fi ndings and the plan of care as documented in the resident s note. CASIMIRO PAYTON MD NEUROSURGERY [facility] [place] [address] Pascual Ballard - 12:00 PM PDT CC: CAPONE and visual problems HPI: Patient is a 32 yo female with a history of pseudotumor cerebri. She had a LP shunt pl aced in 2005 which was explanted soon therearfter for infection. This did help her headaches . 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 She had been seeing Dr. Kush pabon r her pseudotumor and has been taking Diamox. She presents with continued headaches. These are constant and have been getting worse in e past few months. She has occasional vision problems. These consist of intermittent "black spots" and "tunnel vision." Last saw an suction worker in [facility] 2 months ago. Reportedl y, this showed that her OS vision was worse - no reports available to me at this time. Was a lso admitted to the [facility] for CAPONE about a month ago. Reportedly had increased op ening pressure of LP - no reports available. Current outpatient prescriptions : ALBUTEROL IN, inhaler used to treat bronchitis, Disp: , Rfl: DIAMOX OR, 500 mg bid, Disp: , Rfl: hydrocodone-acetaminophen (NORCO) 10-325 mg Oral Tablet, take 1 tablet by oral route every 4-6 hours as needed for pain, Disp: , Rfl: Allergies Allergen Reactions Codeine Rash Cephalexin Rash PE: No vitals were obtained for this visit General: A & O, NAD, speech fluent Neuro: Cranial Nerves: PERRL , EOMI, face symmetric, tongue ML, hearing intact Strength: 5/5 all groups in all extremities No pronator drift, no dysmetria A/P: 32 yo with pseudotumor cerebri. Unfortunately, patient brought no reports of recent op hthalmology visit or hospital admission. Neuro intact. Will schedule for angio and venogram with pressures to r/o venous sinus stenosis as cause of pseudotumor - consult in EPIC sent. Patient was also given a prescription for [place]er for CAPONE until she establishs care with a PCP at the end of April. The patient was seen and staffed with Dr. Payton who agrees with the assessment and plan. documented in this encou nter Plan of Treatment Not on filedocumented as of this encounter Visit Diagnoses + + | Diagnosis | + + | Pseudotumor cerebri - Primary Benign intracranial hypertension | + + documented in this encounter
--- OUTSIDE RECORDS SUMMARY | ~2019-12-04 | XMS | Encounter Summary ---
Demographics + + + | Address | [address] | | | [place] [address] | + + + | Home Phone | | + + + | Preferred Language | Unknown | + + + | Marital Status | | + + + | Zoroastrianism Affiliation | NON | + + + | Race | or | + + + | Ethnic Group | Not or | + + + Author + + + | Author | [place] [employer] [facility] | + + + | Organization | [facility] [employer] [facility] | + + + | Address | Unknown | + + + | Phone | Unavailable | + + + Support + + +---------+ + | Name | Relationship | Address | Phone | + + +---------+ + | Ruby Au | ECON | Unknown | | + + +---------+ + Care Team Providers + +------+ + | Care Bowling Ball Engraver Name | Role | Phone | + +------+ + | Brenden Benavides MD | PCP | | + +------+ + Reason for Visit +--------+ + | Reason | Comments | +--------+ + | Other | | +--------+ + Encounter Details +--------+ + + + + | Date | Type | Department | Care Team | Description | +--------+ + + + + | 09/22/ | Telephone | Neurosurgery 3250 | Sam [address]za [address] | Other | | 2005 | | [address] | [address] | | | | | [place] Mailcode:OP14B | [place], | | | | | [facility] | [place] [address] | | | | | [place], [place] | | | | | | [address] | | | | | | [phone] | | | +--------+ + + + [...]
--- OUTSIDE RECORDS SUMMARY | ~2019-12-04 | XMS | Encounter Summary ---
Demographics + + + | Address | [address] | | | [place] [address] | + + + | Home Phone | | + + + | Preferred Language | Unknown | + + + | Marital Status | | + + + | Episcopal Affiliation | NON | + + + | Race | or | + + + | Ethnic Group | Not or | + + + Author + + + | Author | [place] [employer] [facility] | + + + | Organization | [facility] [employer] [facility] | + + + | Address | Unknown | + + + | Phone | Unavailable | + + + Support + + +---------+ + | Name | Relationship | Address | Phone | + + +---------+ + | Ruby Au | ECON | Unknown | | + + +---------+ + Care Team Providers + +------+ + | Care Community Health Outreach Worker Name | Role | Phone | + +------+ + | Yeison Simms MD | PCP | Unavailable | + +------+ + Reason for Visit + + + | Reason | Comments | + + + | Prescription | for hospital bed | + + + Encounter Details +--------+ + + + + | Date | Type | Department | Care Team | Description | +--------+ + + + + | 05/03/ | Telephone | Neurosurgery 3270 | Sam Pedroza MD | Prescription (for | | 2007 | | [address] | [address] | hospital bed ) | | | | Mailcode: PV01 | [place], [place] | | | | | [facility] | [address] | | | | | [place], [place] | [phone] | | | | | [address] | | | | | | [phone] | | | +--------+ + + + [...]
--- OUTSIDE RECORDS SUMMARY | ~2019-12-04 | XMS | Encounter Summary ---
Demographics + + + | Address | [address] | | | [place] [address] | + + + | Home Phone | | + + + | Preferred Language | Unknown | + + + | Marital Status | | + + + | Holiness Affiliation | Unknown | + + + | Race | Unknown | + + + | Ethnic Group | Unknown | + + + Author + + + | Author | [facility] | | | and [place] | + + + | Organization | [facility] | | | and [place] | [...] Team Providers + +------+ + | Care Gate Guard Name | Role | Phone | + +------+ + PCP | Unavailable | + +------+ + Encounter Details +--------+ + + + + | Date | Type | Department | Care Team | Description | +--------+ + + + + | 10/29/ | Hospital | [facility] | | | | 1991 | Encounter | MED CTR EMERGENCY | | | | | | CENTER [address] | | | | | | [place] | | | | | | [address] | | | | | | [phone] | | | +--------+ + + + [...]
--- OUTSIDE RECORDS SUMMARY | ~2019-12-04 | XMS | Encounter Summary ---
Demographics + + + | Address | [address] | | | [place] [address] | + + + | Home Phone | | + + + | Preferred Language | Unknown | + + + | Marital Status | | + + + | Buddhism Affiliation | Unknown | + + + | Race | Unknown | + + + | Ethnic Group | Unknown | + + + Author + + + | Author | [facility] | | | and [place] | + + + | Organization | [facility] | | | and [...] Team Providers + +------+ + | Care Workers Compensation Administrator Name | Role | Phone | + +------+ + PCP | Unavailable | + +------+ + Encounter Details +--------+ + + + + | Date | Type | Department | Care Team | Description | +--------+ + + + + | 10/22/ | Hospital | [facility] | | | | 1991 - | Encounter | MED CTR [facility] | | | | | | [facility] [address] | | | | 10/24/ | | [place], | | | | 1991 | | [place] [address] | | | | | | [phone] | | | +--------+ + + + [...]
--- OUTSIDE RECORDS SUMMARY | ~2019-12-04 | XMS | Encounter Summary ---
Demographics + + + | Address | [address] | | | [place] [address] | + + + | Home Phone [...] + + + | Author | [place] [employer] [facility] | + + + | Organization | [facility] [employer] [facility] | + + + | Address | Unknown | + + + | Phone | Unavailable | + + + Support + + +---------+ + | Name | Relationship | Address | Phone | + + +---------+ + | Ruby Au | ECON | Unknown | | + + +---------+ + Care Team Providers + +------+ + | Care Special Procedures Nurse Name | Role | Phone | + [...] Neurosurgery [address] | | | | | [facility] | [address] | | | | | and Healing, | [place], [place] | | | | | Building | [address] | | | | | Floor [place], [place] | | | | | | [address] | | | | | | [phone] | | | +--------+--------+ + + + [...]
--- OUTSIDE RECORDS SUMMARY | ~2019-12-04 | XMS | Encounter Summary ---
Demographics + + + | Address | [address] | | | [place] [address] | + + + | Home Phone | | + + + | Preferred Language | Unknown | + + + | Marital Status | | + + + | Mandaen Affiliation | Unknown | + + + | Race | Unknown | + + + | Ethnic Group | Unknown | + + + Author + + + | Author | [facility] | | | and [place] | + + + | Organization | [facility] | | | and [place] [...] Team Providers + +------+ + | Care Bag Hanger Name | Role | Phone | + +------+ + PCP | Unavailable | + +------+ + Encounter Details +--------+ + + + + | Date | Type | Department | Care Team | Description | +--------+ + + + + | 10/10/ | Hospital | [facility] | | | | 1991 | Encounter | MED CTR [facility] | | | | | | HEALTH [address] | | | | | | [place], | | | | | | [place] [address] | | | | | | [phone] | | | +--------+ + + + [...]
--- OUTSIDE RECORDS SUMMARY | ~2019-12-04 | XMS | Encounter Summary ---
Demographics + + + | Address | [address] | | | [place] [address] | + + + | Home Phone | | + + + | Preferred Language | Unknown | + + + | Marital Status | | + + + | Temple Affiliation | NON | + + + | Race | or | + + + | Ethnic Group | Not or | + + + Author + + + | Author | [place] [facility] [facility] | + + + | Organization | [facility] | + + + | Address | Unknown | + + + | Phone | Unavailable | + + + Support + + +---------+ + | Name | Relationship | Address | Phone | + + +---------+ + | Ruby Au | ECON | Unknown | | + + +---------+ + Care Team Providers + +------+ + | Care Enrobing Machine Operator Name | Role | Phone [...] | [address] | [address] | | | | | Mailcode: PV01 | [place], [place] | | | | | [facility] | [address] | | | | | [place], [place] | [phone] | | | | | [address] | | | | | | [phone] | | | +--------+ + + + [...]
--- OUTSIDE RECORDS SUMMARY | ~2019-12-04 | XMS | Encounter Summary ---
Demographics + + + | Address | [address] | | | [place] [address] | + + + | Home Phone | | + + + | Preferred Language | Unknown | + + + | Marital Status | | + + + | Orthodoxy Affiliation | Unknown | + + + | Race | Unknown | + + + | Ethnic Group | Unknown | + + + Author + + + | Author | [facility] | | | and [place] | + + + | Organization | [facility] | | [...] Team Providers + +------+ + | Care Sugarcane Research Technician Name | Role | Phone | + +------+ + PCP | Unavailable | + +------+ + Encounter Details +--------+ + + + + | Date | Type | Department | Care Team | Description | +--------+ + + + + | 04/20/ | Hospital | [facility] | | | | 1995 | Encounter | MED CTR EMERGENCY | | | | | | CENTER [address] | | | | | | [place] | | | | | | [address] | | | | | | [phone] | | | +--------+ + + + [...]
--- OUTSIDE RECORDS SUMMARY | ~2019-12-04 | XMS | Encounter Summary ---
Demographics + + + | Address | [address] | | | [place] [address] | + + + | Home Phone | | + + + | Preferred Language | Unknown | + + + | Marital Status | | + + + | Druze Affiliation | NON | + + + | Race | or | + + + | Ethnic Group | Not or | + + + Author + + + | Author | [place] [employer] [facility] | + + + | Organization | [facility] [employer] [facility] | + + + | Address | Unknown | + + + | Phone | Unavailable | + + + Support + + +---------+ + | Name | Relationship | Address | Phone | + + +---------+ + | Ruby Au | ECON | Unknown | | + + +---------+ + Care Team Providers + +------+ + | Care Solderer Barrel Ribs Name | Role | Phone | + [...] Telephone follow-up | | 2015 | | [place] | [address] | | | | | Neuro-Ophthalmology | [place], [place] | | | | | at [facility] [address] | [address] | | | | | Ave Mailcode: [facility] | [phone] | | | | | [facility] | | | | | | and [address], | | | | | | | | | | | | Floor [place], [place] | | | | | | [address] | | | | | | [phone] | | | +--------+ + + + [...]
--- OUTSIDE RECORDS SUMMARY | ~2019-12-04 | XMS | Encounter Summary ---
Demographics + + + | Address | [address] | | | [place] [address] | + + + | Home Phone | | + + + | Preferred Language | Unknown | + + + | Marital Status | | + + + | Episcopalian Affiliation | Unknown | + + + | Race | Unknown | + + + | Ethnic Group | Unknown | + + + Author + + + | Author | [facility] | | | and [place] | + + + | Organization | [facility] | [...] | +--------+ + + + + | 10/14/ | Hospital | [facility] | | | | 1991 | Encounter | MED CTR [facility] | | | | | | HEALTH [address] | | | | | | [place], | | | | | | [place] [address] | | | | | | [phone] | | | +--------+ + + + [...]
--- OUTSIDE RECORDS SUMMARY | ~2019-12-04 | XMS | Encounter Summary ---
Demographics + + + | Address | [address] | | | [place] [address] | + + + | Home Phone | | + + + | Preferred Language | Unknown | + + + | Marital Status | | + + + | Latter Day Affiliation | NON | + + + | Race | or | + + + | Ethnic Group | Not or | + + + Author + + + | Author | [place] [employer] [facility] | + + + | Organization | [facility] [employer] [facility] [...] Team Providers + +------+ + | Care Product Distribution Specialist Name | Role | Phone | + +------+ + | Yeison Simms MD | PCP | Unavailable | + +------+ + Reason for Visit + + + | Reason | Comments | + + + | CAPONE - Headache | | + + + Encounter Details +--------+ + + + + | Date | Type | Department | Care Team | Description | +--------+ + + + + | 12/23/ | Telephone | Neurosurgery at | Sam Pedroza MD | CAPONE - Headache | | 2008 | | [facility] [address] | [address] | | | | | Ave Mailcode: CH8N | [place], [place] | | | | | [facility] | [address] | | | | | and Healing, | [phone] | | | | | [facility] | | | | | | Floor [place], [place] | | | | | | [address] | | | | | | [phone] | | | +--------+ + + + [...]
--- OUTSIDE RECORDS SUMMARY | ~2019-12-04 | XMS | Encounter Summary ---
Demographics + + + | Address | [address] | | | [place] [address] | + + + | Home Phone | | + + + | Preferred Language | Unknown | + + + | Marital Status | | + + + | Anabaptist Affiliation | Unknown | + + + | Race | Unknown | + + + | Ethnic Group | Unknown | + + + Author + + + | Author | [facility] | | | and [place] | + + + | Organization | [facility] | | | and [place] [...] Team Providers + +------+ + | Care Kennel Aide Name | Role | Phone | + +------+ + PCP | Unavailable | + +------+ + Encounter Details +--------+ + + + + | Date | Type | Department | Care Team | Description | +--------+ + + + + | 01/01/ | Hospital | [facility] | [place], | | | 2009 | Encounter | MED CTR EMERGENCY | Brad Yu MD [address] | | | | | [place] [address] | [facility] | | | | | [place] | [place] [address] | | | | | [address] | [phone] | | | | | [phone] | | | +--------+ + + + [...]
--- OUTSIDE RECORDS SUMMARY | ~2019-12-04 | XMS | Encounter Summary ---
Demographics + + + | Address | [address] | | | [place] [address] | + + + | Home Phone [...] | Organization | [facility] | | | and [place] [...] Team Providers + +------+ + | Care Gluer Machine Setup Operator Name | Role | Phone | + +------+ + PCP | Unavailable | + +------+ + Encounter Details +--------+ + + + + | Date | Type | Department | Care Team | Description | +--------+ + + + + | 07/17/ | Hospital | [facility] | Domingo Darby, | | | 2010 | Encounter | [facility] | [address] | | | | | EMERGENCY CENTER | [place] [address] | | | | | [address] | [phone] | | | | | [place], [place] | | | | | | [address] | | | | | | [phone] | | | +--------+ + + + [...]
--- OUTSIDE RECORDS SUMMARY | ~2019-12-04 | XMS | Encounter Summary ---
Demographics + + + | Address | [address] | | | [place] [address] | + + + | Home Phone [...] + + + | Author | [place] [employer] [facility] | + + + | Organization | [facility] [employer] [facility] | + + + | Address | Unknown | + + + | Phone | Unavailable | + + + Support + + +---------+ + | Name | Relationship | Address | Phone | + + +---------+ + | Ruby Au | ECON | Unknown | | + + +---------+ + Care Team Providers + +------+ + | Care Medtronics Technician Name | Role | Phone | + +------+ + | Yeison Simms MD | PCP | Unavailable | + +------+ + Reason for Visit + + + | Reason | Comments | + + + | CAPONE - Headache | questions about CAOPNE | + + + Encounter Details +--------+ + + + + | Date | Type | Department | Care Team | Description | +--------+ + + + + | 09/04/ | Telephone | Neurosurgery at | Sam Pedroza MD | CAPONE - Headache | | 2007 | | [facility] [address] | [address] | (questions about CAPONE) | | | | Ave Mailcode: CH8N | [place], [place] | | | | | [facility] | [address] | | | | | and Healing, | [phone] | | | | | | | | | | | Floor [place], [place] | | | | | | [address] | | | | | | [phone] | | | +--------+ + + + [...]
--- OUTSIDE RECORDS SUMMARY | ~2019-12-04 | XMS | Encounter Summary ---
Demographics + + + | Address | [address] | | | [place] [address] | + + + | Home Phone [...] | [facility] | [...] Team Providers + +------+ + | Care Ethnic Origins Teacher Name | Role | Phone | + +------+ + PCP | Unavailable | + +------+ + Encounter Details +--------+ + + + + | Date | Type | Department | Care Team | Description | +--------+ + + + + | 10/12/ | Hospital | [facility] | | | | 1991 | Encounter | MED CTR WOMENS | | | | | | HEALTH SV [address] | | | | | | [place], | | | | | | [place] [address] | | | | | | [phone] | | | +--------+ + + + [...]
--- OUTSIDE RECORDS SUMMARY | ~2019-12-04 | XMS | Encounter Summary ---
Demographics + + + | Address | [address] | | | [place] [address] | + + + | Home Phone | | + + + | Preferred Language | Unknown | + + + | Marital Status | | + + + | Rastafarian Affiliation | Unknown | + + + | Race | Unknown | + + + | Ethnic Group | Unknown | + + + Author + + + | Author | [facility] | | | and [place] | + + + | Organization | [facility] | | | [...] Providers + +------+ + | Care Lining Layer Name | Role | Phone | + +------+ + PCP | Unavailable | + +------+ + Encounter Details +--------+ + + + + | Date | Type | Department | Care Team | Description | +--------+ + + + + | 10/25/ | Hospital | [facility] | | | | 1991 | Encounter | MED CTR EMERGENCY | | | | | | CENTER [address] | | | | | | [place] | | | | | | [address] | | | | | | [phone] | | | +--------+ + + + [...]
--- OUTSIDE RECORDS SUMMARY | ~2019-12-04 | XMS | Encounter Summary ---
Demographics + + + | Address | [address] | | | [place] [address] | + + + | Home Phone [...] + + + | Author | [place] [employer] [facility] | + + + | Organization | [facility] [employer] [facility] | + + + | Address | Unknown | + + + | Phone | Unavailable | + + + Support + + +---------+ + | Name | Relationship | Address | Phone | + + +---------+ + | Ruby Au | ECON | Unknown | | + + +---------+ + Care Team Providers + +------+ + | Care Scorer Helper Name | Role | Phone | [...] Operative Report | | 2006 | | [place] at [facility] [address] | | | | | Transcribed | [address] | | | | | | Mailcode: Center | | | | | | for Health and | | | | | | Healing, [facility] [address] | | | | | | [place], [place] | | | | | | [address] | | | | | | [phone] | | | +--------+ + + + [...] | 02/07/2007 12:00 AM PDT | | [id number] | | [id number] [place] [id number] | | | | Date: 02/07/2007 | | | | Attending Surgeon: Hay Hughes M.D. | | | | Bit Tripoler(s): Pascual Bermudez M.D. | | | | [...] and medial orbital | | septum. The salon assistant retracted the orbital fat bag with [...] | | KYM / LANETTE | | [id number] / [id number] / [id number] / [id number] | | | | | | | | cc: | | | | | | Brad Currie M.D. | | [facility] [place] | | | | | | Brenden Benavides M.D. | | [facility] | | [address] [facility] [address] | | [place] [address] | | | | | | Electronically signed by Hay Hughes 02-12-2007 05:13:05 PM | | | | | + + documented in this encounter Visit Diagnoses Not on filedocumented in this encounter"
--- OUTSIDE RECORDS SUMMARY | ~2019-12-04 | XMS | Encounter Summary ---
Demographics + + + | Address | [address] | | | [place] [address] | + + + | Home Phone | | + + + | Preferred Language | Unknown | + + + | Marital Status | | + + + | Jainism Affiliation | Unknown | + + + | Race | Unknown | + + + | Ethnic Group | Unknown | + + + Author + + + | Author | [facility] | | | and [place] | + + + | Organization | [facility] | | | and [...] Providers + +------+ + | Care Health And Safety Tech Name | Role | Phone | + +------+ + PCP | Unavailable | + +------+ + Encounter Details +--------+ + + + + | Date | Type | Department | Care Team | Description | +--------+ + + + + | 05/15/ | Hospital | [facility] | | | | 1991 | Encounter | MED CTR XRAY [address] | | | | | | [address] | | | | | | [place] [address] | | | | | | [phone] | | | +--------+ + + + [...]
--- OUTSIDE RECORDS SUMMARY | ~2019-12-04 | XMS | Encounter Summary ---
Demographics + + + | Address | [address] | | | [place] [address] | + + + | Home Phone | | + + + | Preferred Language | Unknown | + + + | Marital Status | | + + + | Islam Affiliation | Unknown | + + + | Race | Unknown | + + + | Ethnic Group | Unknown | + + + Author + + + | Author | [facility] | | | and [place] | + + + | Organization | [facility] | | | and [place] | + + + | Address | Unknown | + + + | Phone | Unavailable | + + + Support + + +---------+ + | Name | Relationship | Address | Phone | + + +---------+ + | Saad Chamroro | ECON | Unknown | | + + +---------+ + Care Team Providers + +------+ + | Care Supervisor Assembly And Packing Name | Role | Phone | + +------+ + PCP | Unavailable | + +------+ + Encounter Details +--------+ + + + + | Date | Type | Department | Care Team | Description | +--------+ + + + + | 03/03/ | Emergency | [facility] | Artis Reyes DO | Pain, abdominal, | | 2012 | | MEDICAL CENTER | [address] | unknown etiology | | | | EMERGENCY CENTER | [place], [place] | | | | | [address] [facility] | [address] | | | | | [place], [place] | [phone] | | | | | [address] | | | | | | [phone] | | | +--------+ + + + [...]
--- OUTSIDE RECORDS SUMMARY | ~2019-12-04 | XMS | Encounter Summary ---
Demographics + + + | Address | [address] | | | [place] [address] | + + + | Home Phone | | + + + | Preferred Language | Unknown | + + + | Marital Status | | + + + | Hindu Affiliation | Unknown | + + + | Race | Unknown | + + + | Ethnic Group | Unknown | + + + Author + + + | Author | [facility] | | | and [place] | + + + | Organization | [facility] | | [...] Team Providers + +------+ + | Care Letter Carrier Name | Role | Phone | + +------+ + | Amanda Herzog PA-C | PCP | | + +------+ + Encounter Details +--------+ + + + + | Date | Type | Department | Care Team | Description | +--------+ + + + + | 12/27/ | Abstract | [facility] [place] | Radha, | | | 2019 | | PHYSIATRY [address] | [address] | | | | | [place], | [place] | | | | | [place] [address] | [place] [address] | | | | | [phone] | | | +--------+ + + + [...]
--- OUTSIDE RECORDS SUMMARY | ~2019-12-04 | XMS | Encounter Summary ---
Demographics + + + | Address | [address] | | | [place] [address] | + + + | Home Phone [...] + + + | Author | [place] [employer] [facility] | + + + | Organization | [facility] | + + + | Address | Unknown | + + + | Phone | Unavailable | + + + Support + + +---------+ + | Name | Relationship | Address | Phone | + + +---------+ + | Ruby Au | ECON | Unknown | | + + +---------+ + Care Team Providers + +------+ + | Care Airframe And Power Plant Mechanic Name | Role | Phone | [...] Neurosurgery [address] | | | | | [facility] | [address] | | | | | and Healing, | [place], [place] | | | | | [facility] | [address] | | | | | Floor [place], [place] | | | | | | [address] | | | | | | [phone] | | | +--------+ + + + [...]
--- OUTSIDE RECORDS SUMMARY | ~2019-12-04 | XMS | Encounter Summary ---
Demographics + + + | Address | [address] | | | [place] [address] | + + + | Home Phone [...] + + + | Author | [place] [employer] [facility] | + + + | Organization | [facility] [employer] [facility] | [...] Team Providers + +------+ + | Care Reinforced Steel Placing Supervisor Name | Role | Phone | [...] Letter Encounter | | 2008 | | [facility] [address] | [address] | | | | | Ave Mailcode: CH8N | [place], [place] | | | | | [facility] | [address] | | | | | and [place], | [phone] | | | | | [facility] | | | | | | Floor [place], [place] | | | | | | [address] | | | | | | [phone] | | | +--------+ + + + [...]
--- OUTSIDE RECORDS SUMMARY | ~2019-12-04 | XMS | Encounter Summary ---
Demographics + + + | Address | [address] | | | [place] [address] | + + + | Home Phone [...] + + + | Author | [place] [employer] [facility] | + + + | Organization | [facility] [employer] [facility] | [...] Team Providers + +------+ + | Care Night Auditor Name | Role | Phone | + +------+ + | Brenden Benavides MD | PCP | | + +------+ + Reason for Visit + + + | Reason | Comments | + + + | Refill Request | Pt requests more pain medication | + + + Encounter Details +--------+--------+ + + + | Date | Type | Department | Care Team | Description | +--------+--------+ + + + | 02/09/ | Refill | [facility] | Hay Hughes MD [address] | Refill Request (Pt | | 2006 | | Dexter | [address] | requests more pain | | | | Oculoplastics at | [place], [place] | medication) | | | | [address] | [address] | | | | | [place] | [phone] | | | | | Mailcode: CE | | | | | | [place] [address] | | | | | | [phone] | | | +--------+--------+ + + + [...]
--- OUTSIDE RECORDS SUMMARY | ~2019-12-04 | XMS | Encounter Summary ---
Demographics + + + | Address | [address] | | | [place] [address] | + + + | Home Phone [...] + + + | Author | [place] [employer] [facility] | + + + | Organization | [facility] [facility] | [...] Team Providers + +------+ + | Care Pipe Straightener Name | Role | Phone | + +------+ + | Dennis Maddox | PCP | | + +------+ + Encounter Details +--------+ + + + + | Date | Type | Department | Care Team | Description | +--------+ + + + + | 03/15/ | Telephone | [facility] | Ronaldo Martin MD | | | 2012 | | [place]/Ophthalmol | [facility] [place] | | | | | leon at [facility] [address] | [address] [place] [address] | | | | | Gianluca Kirk Mailcode: | [place] [address] | | | | | CH11P [facility] | [phone] | | | | | Health and Healing, | | | | | | | | | | | | [place], [place] | | | | | | [address] | | | | | | [phone] | | | +--------+ + + + [...]
--- OUTSIDE RECORDS SUMMARY | ~2019-12-04 | XMS | Encounter Summary ---
Demographics + + + | Address | [address] | | | [place] [address] | + + + | Home Phone [...] + + | Author | [place] [employer] [facility] | + + + | Organization | [facility] [employer] [facility] | + + + | Address | Unknown | + + + | Phone | Unavailable | + + + Support + + +---------+ + | Name | Relationship | Address | Phone | + + +---------+ + | Ruby Au | ECON | Unknown | | + + +---------+ + Care Team Providers + +------+ + | Care Pharmacy Care Coordinator Name | Role | Phone | [...] Cerebri | | 2007 | Visit | [facility] [address] | [place] | (Primary Dx) | | | | Ave Mailcode: CH8N | Neurosurgery [address] | | | | | [facility] | [address] | | | | | and Healing, | [place], [place] | | | | | Building | [address] | | | | | Floor [place], [place] | | | | | | [address] | | | | | | [phone] | | | +--------+---------+ + + + [...]
--- OUTSIDE RECORDS SUMMARY | ~2019-12-04 | XMS | Encounter Summary ---
Demographics + + + | Address | [address] | | | [place] [address] | + + + | Home Phone [...] + + + | Author | [place] [employer] [facility] | + + + | Organization | [facility] [employer] [facility] | + [...] Providers + +------+ + | Care Security Installation Sales Technician Name | Role | Phone | [...] Cerebri; | | 2005 | Visit | [place] | | Common Migraine | | | | Neuro-Ophthalmology | | without Mention of | | | | [address] | | Intractable Migraine | | | | Mailcode: CEI | | | | | | [place] [address] | | | | | | [phone] | | | +--------+---------+ + + + [...] 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
--- OUTSIDE RECORDS SUMMARY | ~2019-12-04 | XMS | Encounter Summary ---
Demographics + + + | Address | [address] | | | [place] [address] | + + + | Home Phone | | + + + | Preferred Language | Unknown | + + + | Marital Status | | + + + | Protestant Affiliation | Unknown | + + + | Race | Unknown | + + + | Ethnic Group | Unknown | + + + Author + + + | Author | [facility] | | | and [place] | + + + | Organization | [facility] | | | and [...] Team Providers + +------+ + | Care Truer Pinion And Wheel Name | Role | Phone | + +------+ + PCP | Unavailable | + +------+ + Encounter Details +--------+ + + + + | Date | Type | Department | Care Team | Description | +--------+ + + + + | 07/30/ | Hospital | [facility] | | | | 2008 - | Encounter | MED CTR MED ONC | | | | | | [address] | | | | 08/02/ | | [place] [address] | | | | 2008 | | [phone] | | | +--------+ + + + [...]
--- OUTSIDE RECORDS SUMMARY | ~2019-12-04 | XMS | Encounter Summary ---
Demographics + + + | Address | [address] | | | [place] [address] | + + + | Home Phone [...] + + + | Author | [place] [employer] [facility] | + + + | Organization | [facility] [employer] [facility] | [...] Team Providers + +------+ + | Care Flight Engineer Inspector Name | Role | Phone | [...] Neurosurgery [address] | | | | | [facility] | [address] | | | | | and Healing, | [place], [place] | | | | | [facility] | [address] | | | | | Floor [place], [place] | | | | | | [address] | | | | | | [phone] | | | +--------+ + + + [...]
--- OUTSIDE RECORDS SUMMARY | ~2019-12-04 | XMS | Encounter Summary ---
Demographics + + + | Address | [address] | | | [place] [address] | + + + | Home Phone | | + + + | Preferred Language | Unknown | + + + | Marital Status | | + + + | Bahai Affiliation | NON | + + + | Race | or | + + + | Ethnic Group | Not or | + + + Author + + + | Author | [place] [employer] [facility] | + + + | Organization | [facility] | + + + | Address | Unknown | + + + | Phone | Unavailable | + + + Support + + +---------+ + | Name | Relationship | Address | Phone | + + +---------+ + | Ruby Au | ECON | Unknown | | + + +---------+ + Care Team Providers + +------+ + | Care Planning Intern Name | Role | Phone | + +------+ + | Brenden Benavides MD | PCP | | + +------+ + Encounter Details +--------+ + + + + | Date | Type | Department | Care Team | Description | +--------+ + + + + | 02/21/ | Telephone | [facility] | Pascual Bermudez [address] | | | 2006 | | [place] | [address] | | | | | Oculoplastics at | [address] [place], [place] | | | | | [address] | [address] | | | | | [address] | | | | | | Mailcode: PATTI | | | | | | [place] [address] | | | | | | [phone] | | | +--------+ + + + [...]
--- OUTSIDE RECORDS SUMMARY | ~2019-12-04 | XMS | Encounter Summary ---
Demographics + + + | Address | [address] | | | [place] [address] | + + + | Home Phone [...] + + + | Author | [place] [employer] [facility] | + + + | Organization | [facility] [employer] [facility] [...] Team Providers + +------+ + | Care Billet Cutter Name | Role | Phone | + +------+ + | Yeison Simms MD | PCP | Unavailable | + +------+ + Reason for Visit + + + | Reason | Comments | + + + | Refill Request | refill on [place] | + + + Encounter Details +--------+--------+ + + + | Date | Type | Department | Care Team | Description | +--------+--------+ + + + | 08/27/ | Refill | Neurosurgery at | Sam Pedroza MD | Refill Request | | 2007 | | [facility] [address] | [address] | (refill on [place]) | | | | Ave Mailcode: CH8N | [place], [place] | | | | | [facility] | [address] | | | | | and Healing, | [phone] | | | | | [facility] | | | | | | Floor [place], [place] | | | | | | [address] | | | | | | [phone] | | | +--------+--------+ + + + [...]
--- OUTSIDE RECORDS SUMMARY | ~2019-12-04 | XMS | Encounter Summary ---
Demographics + + + | Address | [address] | | | [place] [address] | + + + | Home Phone [...] + + + | Author | [place] [employer] [facility] | + + + | Organization | [facility] [employer] [facility] | + + + | Address | Unknown | + + + | Phone | Unavailable | + + + Support + + +---------+ + | Name | Relationship | Address | Phone | + + +---------+ + | Ruby Au | ECON | Unknown | | + + +---------+ + Care Team Providers + +------+ + | Care Senior Quality Control Inspector Name | Role | Phone | + +------+ + | Pedro Luis Sams MD | PCP | | + +------+ + Reason for Visit +---------+ + | Reason | Comments | +---------+ + | Post Op | | +---------+ + Encounter Details +--------+ + + + + | Date | Type | Department | Care Team | Description | +--------+ + + + + | 03/09/ | Emergency | [facility] | | | | 2012 | | Department [address] | | | | | | [address] | | | | | | [facility] | | | | | | [place], [place] | | | | | | [address] | | | | | | [phone] | | | +--------+ + + + [...]
--- OUTSIDE RECORDS SUMMARY | ~2019-12-04 | XMS | Encounter Summary ---
Demographics + + + | Address | [address] | | | [place] [address] | + + + | Home Phone [...] + + + | Author | [place] [employer] [facility] | + + + | Organization | [facility] [employer] [facility] [...] Team Providers + +------+ + | Care Computer Application Developer Name | Role | Phone | [...] Treatment Question | | 2010 | | [facility] [address] | [address] | | | | | Ave Mailcode: CH8N | [place], [place] | | | | | [facility] | [address] | | | | | and Healing, | [phone] | | | | | [facility] | | | | | | Floor [place], [place] | | | | | | [address] | | | | | | [phone] | | | +--------+ + + + [...]
--- OUTSIDE RECORDS SUMMARY | ~2019-12-04 | XMS | Encounter Summary ---
Demographics + + + | Address | [address] | | | [place] [address] | + + + | Home Phone [...] + + + | Author | [place] [employer] [facility] | + + + | Organization | [facility] [employer] [facility] | + + + | Address | Unknown | + + + | Phone | Unavailable | + + + Support + + +---------+ + | Name | Relationship | Address | Phone | + + +---------+ + | Ruby Au | ECON | Unknown | | + + +---------+ + Care Team Providers + +------+ + | Care Governor Assembler Name | Role | Phone | [...] | Prescription | | 2012 | | [place]/Ophthalmol | MD Perry | | | | | leon at [facility] [address] | | | | | | Gianluca Kirk Mailcode: | | | | | | CH11P [facility] | | | | | | Health and [facility], | | | | | | Building | | | | | | [place], [place] | | | | | | [address] | | | | | | [phone] | | | +--------+ + + + [...]
--- OUTSIDE RECORDS SUMMARY | ~2019-12-04 | XMS | Encounter Summary ---
Demographics + + + | Address | [address] | | | [place] [address] | + + + | Home Phone [...] | Organization | [facility] | [...] Team Providers + +------+ + | Care Dray Truck Driver Name | Role | Phone | + +------+ + PCP | Unavailable | + +------+ + Encounter Details +--------+ + + + + | Date | Type | Department | Care Team | Description | +--------+ + + + + | 10/18/ | Hospital | [facility] | | | | 1991 | Encounter | MED CTR WOMENS | | | | | | HEALTH [address] | | | | | | [place], | | | | | | [place] [address] | | | | | | [phone] | | | +--------+ + + + [...]
--- OUTSIDE RECORDS SUMMARY | ~2019-12-04 | XMS | Encounter Summary ---
Demographics + + + | Address | [address] | | | [place] [address] | + + + | Home Phone [...] + + | Author | [place] [employer] [facility] | + + + | Organization | Count Includes [facility] [employer] [facility] | + [...] Team Providers + +------+ + | Care Yard Hand Name | Role | Phone | [...] Cerebri | | 2006 | Visit | [facility] | Bud Alexander MD [address] | (Primary Dx) | | | | Ma[address] | Cassi Hammer | | | | | [address] | [place], [place] | | | | | Mailcode: [facility] | [address] | | | | | [place] [address] | [phone] | | | | | [phone] | | | +--------+---------+ + + + [...]
--- OUTSIDE RECORDS SUMMARY | ~2019-12-04 | XMS | Encounter Summary ---
Demographics + + + | Address | [address] | | | [place] [address] | + + + | Home Phone [...] | Organization | [facility] | | | and [place] [...] Team Providers + +------+ + | Care Processing Manager Name | Role | Phone | + +------+ + PCP | Unavailable | + +------+ + Encounter Details +--------+ + + + + | Date | Type | Department | Care Team | Description | +--------+ + + + + | 07/21/ | Hospital | [facility] | | | | 1990 | Encounter | [facility] CTR EMERGENCY | | | | | | CENTER [address] | | | | | | [place] | | | | | | [address] | | | | | | [phone] | | | +--------+ + + + [...]
--- OUTSIDE RECORDS SUMMARY | ~2019-12-04 | XMS | Encounter Summary ---
Demographics + + + | Address | [address] | | | [place] [address] | + + + | Home Phone [...] + | Organization | [facility] | | | and [place] [...] Providers + +------+ + | Care Chief Technician Name | Role | Phone | + +------+ + PCP | Unavailable | + +------+ + Encounter Details +--------+ + + + + | Date | Type | Department | Care Team | Description | +--------+ + + + + | 07/06/ | Hospital | [facility] | Mirna Lambert | | | 2007 | Encounter | MED CTR EMERGENCY | Bri Waters MD [address] | | | | | [address] | [facility] | | | | | [place] | [place] [address] | | | | | [address] | [phone] | | | | | [phone] | | | +--------+ + + + [...]
--- OUTSIDE RECORDS SUMMARY | ~2019-12-04 | XMS | Encounter Summary ---
Demographics + + + | Address | [address] | | | [place] [address] | + + + | Home Phone [...] Organization | [facility] [...] Team Providers + +------+ + | Care Auto Garage Attendant Name | Role | Phone | + +------+ + PCP | Unavailable | + +------+ + Encounter Details +--------+ + + + + | Date | Type | Department | Care Team | Description | +--------+ + + + + | 07/19/ | Hospital | [facility] | Vern Rooney, | | | 1990 - | Encounter | MED CTR MED ONC | [address] | | | | | [address] [place] | [place] | | | 07/21/ | | [place] [address] | [address] | | | 1990 | | [phone] | | | +--------+ + + + [...]
--- OUTSIDE RECORDS SUMMARY | ~2019-12-04 | XMS | Encounter Summary ---
Demographics + + + | Address | [address] | | | [place] [address] | + + + | Home Phone [...] + + + | Author | [place] [employer] [facility] | + + + | Organization | [facility] [employer] [facility] | + + + | Address | Unknown | + + + | Phone | Unavailable | + + + Support + + +---------+ + | Name | Relationship | Address | Phone | + + +---------+ + | Ruby Au | ECON | Unknown | | + + +---------+ + Care Team Providers + +------+ + | Care Copy Lathe Operator Name | Role | Phone | + +------+ + | Brenden Benavides MD | PCP | | + +------+ + Encounter Details +--------+ + + + + | Date | Type | Department | Care Team | Description | +--------+ + + + + | 02/21/ | Telephone | [facility] | [address] | | | 2006 | | [place] | [address] | | | | | Oculoplastics at | [address] [place], [place] | | | | | Ma[address] | [address] | | | | | [address] [place] | | | | | | Mailcode: PATTI | | | | | | [place] [address] | | | | | | [phone] | | | +--------+ + + + [...]
--- OUTSIDE RECORDS SUMMARY | ~2019-12-04 | XMS | Encounter Summary ---
Demographics + + + | Address | [address] | | | [place] [address] | + + + | Home Phone [...] Organization | [facility] [...] Team Providers + +------+ + | Care Stave Hewer Name | Role | Phone | + +------+ + PCP | Unavailable | + +------+ + Encounter Details +--------+ + + + + | Date | Type | Department | Care Team | Description | +--------+ + + + + | 05/25/ | Hospital | [facility] | | | | 1991 | Encounter | MED CTR W[facility]ENS | | | | | | HEALTH SV [address] | | | | | | [place], | | | | | | [place] [address] | | | | | | [phone] | | | +--------+ + + + [...]
--- OUTSIDE RECORDS SUMMARY | ~2019-12-04 | XMS | Encounter Summary ---
Demographics + + + | Address | [address] | | | [place] [address] | + + + | Home Phone [...] Organization | [facility] | | | [...] Providers + +------+ + | Care Tape Edge Machine Operator Name | Role | Phone [...] | | | [place] | [address] | | | | | [address] | [phone] | | | | | [phone] | | | +--------+ + + + [...]
--- OUTSIDE RECORDS SUMMARY | ~2019-12-04 | XMS | Clinical Summary ---
Demographics + + + | Address | [address] | | | [place] [address] | + + + | Home Phone | | + + + | Preferred Language | Unknown | + + + | Marital Status | | + + + | Scientology Affiliation | Unknown | + + + | Race | Unknown | + + + | Ethnic Group | Unknown | + + + Author + + + | Author | [employer] (Historical as of | | | 07-14-19) | + + + | Organization | [facility] [employer] (Historical as of | | | 07-14-19) | + + + | Address | Unknown | + + + | Phone | Unavailable | + + + Support + + +---------+ + | Name | Relationship | Address | Phone | + + +---------+ + | Melanie Tong | ECON | Unknown | | + + +---------+ + Care Team Providers + +------+ + | Care Pediatric Clinical Nurse Specialist Name | Role | Phone | + +------+ + | Virginia Reddy NP | PP | | + +------+ + Allergies + + + + + + | Active Allergy | Reactions | Severity | Noted | Comments | | | | | Date | | + + + + + + | Amoxicillin-Pot | Nausea and Vomiting | Low | 03/03/20 | | [...] + + + + | Lamotrigine | Other (See Comments) | Medium | 05/27/20 | Suicidal ideation | | | | | 17 | | + + + + + + | Morphine | Hives | High | 03/03/20 | | | | | | 13 | | + + + + + + | Paroxetine | Other (See Comments) | Medium | 05/27/20 | depression | | | | | 17 | | + + + + + + | Tramadol | Hives | High | 05/26/20 | | | | | | 17 | | + + + + + + | Venlafaxine | Other (See Comments) | Medium | 05/27/20 | Depression | | | | | 17 | | + + + + + + Current Medications + + +-------+---------+------+------+-------+ | Prescription | Sig. | Disp. | Refills | Star | End | Statu | | | | | | t | Date | s | | | | | | Date | | | + + +-------+---------+------+------+-------+ | METFORMIN HCL PO | Take 500 mg by | | | | | Activ | | | mouth. | | | | | e | + + +-------+---------+------+------+-------+ | sertraline | Take 200 mg by mouth | | | | | Activ | | (ZOLOFT) 100 MG | daily. | | | | | e | | tablet | | | | | | | + + +-------+---------+------+------+-------+ | diazepam (VALIUM) | Take 10 mg by mouth | | | | | Activ | | 10 MG tablet | every 6 (six) hours | | | | | e | | | as needed. | | | | | | + + +-------+---------+------+------+-------+ | omeprazole | Take 20 mg by mouth | | | | | Activ | | (PRILOSEC) 20 MG | 2 (two) times daily. | | | | | e | | capsule | | | | | | | + + +-------+---------+------+------+-------+ | | Place under the | | | | | Activ | | buprenorphine-naloxo | tongue every 6 (six) | | | | | e | | ne (SUBOXONE) 2-0.5 | hours as needed. | | | | | | | MG SUBL | | | | | | | + + +-------+---------+------+------+-------+ | losartan (COZAAR) | Take 100 mg by mouth | | | | | Activ | | 50 MG tablet | daily. | | | | | e | + + +-------+---------+------+------+-------+ | amitriptyline | Take 100 mg by mouth | | | | | Activ | | (ELAVIL) 100 MG | nightly. | | | | | e | | tablet | | | | | | | + + +-------+---------+------+------+-------+ Active Problems + + + | Problem | Noted Date | + + + | IV drug abuse | 05/27/2017 | + + + | Type 2 diabetes mellitus (HCC) | 05/27/2017 | + + + | Essential hypertension, benign | 05/27/2017 | + + + | Anxiety and depression | 05/27/2017 | + + + | Chronic pain | 05/27/2017 | + + + | Abnormal vaginal bleeding | 05/27/2017 | + + + | Acute low back pain | 05/27/2017 | + + + Family History + +------+--------+ + | Relation | Name | Status | Comments | + +------+--------+ + | Father | | Other | | + +------+--------+ + | Mother | | Alive | | + +------+--------+ + Social History + + + +--------+------+ | Tobacco Use | Types | Packs/Day | Years | Date | | | | | Used | | + + + +--------+------+ | Current Every Day | Cigarettes | 0.5 | | | | Smoker | | | | | + + + +--------+------+ + +---+---+---+ | Smokeless Tobacco: | | | | | Never Used | | | | + +---+---+---+ + + | Tobacco Cessation: Ready to Quit: No; Counseling Given: No | + + + + +---------+ + | Alcohol Use | Drinks/We | oz/Week | Comments | | | ek | | | + + +---------+ + | Yes | | | occ | + + +---------+ + + + + | Sex Assigned at | Date Recorded | | | | + + + | Not on file | | + + + Last Filed Vital Signs + + + + | Vital Sign | Reading | Time Taken | + + + + | Blood Pressure | 165/83 | 05/27/2017 3:21 PM PDT | + + + + | Pulse | 76 | 05/27/2017 3:21 PM PDT | + + + + | Temperature | 36.9 C (98.4 F) | 05/27/2017 3:21 PM PDT | + + + + | Respiratory Rate | 20 | 05/27/2017 3:21 PM PDT | + + + + | Oxygen Saturation | 95% | 05/27/2017 3:21 PM PDT | + + + + | Inhaled Oxygen | - | - | | Concentration | | | + + + + | Weight | 121 kg (266 lb 12.1 | 05/27/2017 5:07 AM PDT | | | oz) | | + + + + | Height | 167.6 cm (5' 6") | 05/27/2017 5:07 AM PDT | + + + + | Body Mass Index | 43.06 | 05/27/2017 5:07 AM PDT | + + + + Plan of Treatment + + + + + | Health Maintenance | Due Date | Last Done | Comments | + + + + + | Diabetic Eye Exam | | | | | | 5 | | | + + + + + | Diabetic Foot Exam | | | | | | 5 | | | + + + + + | Microalbumin | | | | | Screening | 5 | | | + + + + + | Vaccine: | | | | | Dtap/Tdap/Td (1 - | 4 | | | | Tdap) | | | | + + + + + | Vaccine: | | | | | Pneumococcal 19-64 | 4 | | | | (PPSV23 only) Medium | | | | | Risk (1 of 1 - | | | | | PPSV23) | | | | + + + + + | Cervical Cancer | | | | | Screening (Pap) | 5 | | | + + + + + | Statin Therapy | | | | | (optimal intensity) | 7 | | | + + + + + | Hemoglobin A1c | | 05/27/2017 | | | | 7 | | | + + + + + | Vaccine: Influenza | | | | | (#1) | 9 | | | + + + + + Results Not on filefrom Last 3 Months Insurance + +--------+ +------+-------+ + | Payer | Benefi | Subscriber | Type | Phone | Address | | | t Plan | ID | | | | | | / | | | | | | | Group | | | | | + +--------+ +------+-------+ + | MEDICAID | MEDICA | [id number] | | | [address] | | | ID | | | | [place], [place] | | | [place] | | | | [address] | + +--------+ +------+-------+ + | [place] [employer] | YELLOW | [id number] | | | | | PLANS | [place] | | | | | + +--------+ +------+-------+ + + +--------+ +--------+ + + | Guarantor Name | Accoun | Relation to | Date | Phone | Billing Address | | | t Type | Patient | of | | | | | | | | | | + +--------+ +--------+ + + | ANNABELLA STEWART | Person | Self | [birth year] | Home: | [address] | | | sameera/Jean-Claude | | 1974 | [phone] [place] | | | rene | | | [address] | [address] | + +--------+ +--------+ + +
--- OUTSIDE RECORDS SUMMARY | ~2019-12-04 | XMS | Encounter Summary ---
Demographics + + + | Address | [address] | | | [place] [address] | + + + | Home Phone [...] + + + | Author | [place] [employer] [facility] | + + + | Organization | [facility] [employer] [facility] | + + [...] Providers + +------+ + | Care Legal Aid Name | Role | Phone | + +------+ + | Dennis Maddox | PCP | | + +------+ + Encounter Details +--------+ + + + + | Date | Type | Department | Care Team | Description | +--------+ + + + + | 03/15/ | Telephone | [facility] | Ronlado Martin MD | | | 2012 | | [place]/[facility]hthalmol | [facility] [place] | | | | | leon at [facility] [address] | [address] [place] [address] | | | | | Gianluca Kirk Mailcode: | [place] [address] | | | | | CH11P [facility] | [phone] | | | | | Health and Healing, | | | | | | | | | | | | [place], [place] | | | | | | [address] | | | | | | [phone] | | | +--------+ + + + [...]
--- OUTSIDE RECORDS SUMMARY | ~2019-12-04 | XMS | Encounter Summary ---
Demographics + + + | Address | [address] | | | [place] [address] | + + + | Home Phone [...] + | Organization | [facility] | | | and [...] Providers + +------+ + | Care Industrial Paramedic Name | Role | Phone | + [...] [place], | | | | | | [place] [address] | | | | | | [phone] | | | +--------+ + + + [...]
--- OUTSIDE RECORDS SUMMARY | ~2019-12-04 | XMS | Encounter Summary ---
Demographics + + + | Address | [address] | | | [place] [address] | + + + | Home Phone [...] + + + | Author | [place] [employer] [facility] | + + + | Organization | [facility] [employer] [facility] [...] Team Providers + +------+ + | Care Steno Pool Supervisor Name | Role | Phone | + +------+ + | Yeison Simms MD | PCP | Unavailable | + +------+ + Encounter Details +--------+ + + + + | Date | Type | Department | Care Team | Description | +--------+ + + + + | 08/23/ | Telephone | Neurosurgery at | Kiki Rosen, | | | 2007 | | [facility] [address] | [place] | | | | | [place] Mailcode: CH8N | Neurosurgery [address] | | | | | [facility] | [address] | | | | | and Healing, | [place], [place] | | | | | [place] [address] | [address] | | | | | Floor [place], [place] | | | | | | [address] | | | | | | [phone] | | | +--------+ + + + [...]
--- OUTSIDE RECORDS SUMMARY | ~2019-12-04 | XMS | Encounter Summary ---
Demographics + + + | Address | [address] | | | [place] [address] | + + + | Home Phone [...] + + + | Author | [place] [employer] [facility] | + + + | Organization | [facility] [employer] [facility] [...] Providers + +------+ + | Care Foam Fabricator Name | Role | Phone | + +------+ + | Yeison Simms MD | PCP | Unavailable | + +------+ + Encounter Details +--------+ + + + + | Date | Type | Department | Care Team | Description | +--------+ + + + + | 12/24/ | Telephone | Neurosurgery at | Kiki Rosen, | | | 2008 | | [facility] [address] | [place] | | | | | [place] Mailcode: CH8N | Neurosurgery [address] | | | | | [facility] | [address] | | | | | and Healing, | [place], [place] | | | | | [place] [address] | [address] | | | | | Floor [place], [place] | | | | | | [address] | | | | | | [phone] | | | +--------+ + + + [...]
--- OUTSIDE RECORDS SUMMARY | ~2019-12-04 | XMS | Encounter Summary ---
Demographics + + + | Address | [address] | | | [place] [address] | + + + | Home Phone [...] | [facility] | | | and [...] Providers + +------+ + | Care Tree Surgeon Helper Name | Role | Phone | + +------+ + PCP | Unavailable | + +------+ + Encounter Details +--------+ + + + + | Date | Type | Department | Care Team | Description | +--------+ + + + + | 07/07/ | Hospital | [facility] | | | | 1991 | Encounter | MED CTR EMERGENCY | | | | | | CENTER [address] | | | | | | [place] | | | | | | [address] | | | | | | [phone] | | | +--------+ + + + [...]
--- OUTSIDE RECORDS SUMMARY | ~2019-12-04 | XMS | Encounter Summary ---
Demographics + + + | Address | [address] | | | [place] [address] | + + + | Home Phone [...] + + | Author | [place] [employer] [facility] | + + + | Organization | [facility] [employer] [facility] | + + + | Address | Unknown | + + + | Phone | Unavailable | + + + Support + + +---------+ + | Name | Relationship | Address | Phone | + + +---------+ + | Ruby uA | ECON | Unknown | | + + +---------+ + Care Team Providers + +------+ + | Care Cotton Opener Name | Role | Phone | + [...] [address] | | | | | [facility] | [place], [place] | | | | | [place], [place] | [address] | | | | | [address] | [phone] | | | | | [phone] | | | +--------+ + + + [...]
--- OUTSIDE RECORDS SUMMARY | ~2019-12-04 | XMS | Encounter Summary ---
Demographics + + + | Address | [address] | | | [place] [address] | + + + | Home Phone [...] + + + | Author | [place] [employer] [facility] | + + + | Organization | [facility] [employer] [facility] | + + + | Address | Unknown | + + + | Phone | Unavailable | + + + Support + + +---------+ + | Name | Relationship | Address | Phone | + + +---------+ + | Ruby Au | ECON | Unknown | | + + +---------+ + Care Team Providers + +------+ + | Care Internet Consultant Name | Role | Phone | [...] 08/28/ | Refill | Neurosurgery at | Kiki Rosen, | Refill Request | | 2007 | | [facility] [address] | [place] | | | | | [place] Mailcode: CH8N | Neurosurgery [address] | | | | | [facility] | [address] | | | | | and Healing, | [place], [place] | | | | | Building | [address] | | | | | Floor [place], [place] | | | | | | [address] | | | | | | [phone] | | | +--------+--------+ + + + [...]
--- OUTSIDE RECORDS SUMMARY | ~2019-12-04 | XMS | Encounter Summary ---
Demographics + + + | Address | [address] | | | [place] [address] | + + + | Home Phone [...] + + | Author | [place] [employer] [facility] | + + + | Organization | [facility] [employer] [facility] | + [...] Providers + +------+ + | Care Outside Plant Supervisor Name | Role | Phone [...] | | | Ave Mailcode: CH8N | [place], [place] | | | | | [facility] | [address] | | | | | and Healing, | [phone] | | | | | [facility] | | | | | | Floor [place], [place] | | | | | | [address] | | | | | | [phone] | | | +--------+ + + + [...]
--- OUTSIDE RECORDS SUMMARY | ~2019-12-04 | XMS | Encounter Summary ---
Demographics + + + | Address | [address] | | | [place] [address] | + + + | Home Phone [...] + + + | Author | [place] [employer] [facility] | + + + | Organization | [facility] [employer] [facility] | + + + | Address | Unknown | + + + | Phone | Unavailable | + + + Support + + +---------+ + | Name | Relationship | Address | Phone | + + +---------+ + | Ruby Au | ECON | Unknown | | + + +---------+ + Care Team Providers + +------+ + | Care Checking Clerk Name | Role | Phone | [...] | | | | intracranial | [address] | [address] | | | | | | Ave | Ave | | | | | hypertension | [place], [place] | [place], [place] | | | | | Procedures | [address] | [address] | | | | | REQUEST TO | Phone: | Phone: | | | | | SURGERY | [phone] | [phone] | | | | | GUN NUMBER | Fax: | Fax: | | | | | [facility] | [phone] | [phone] | | | | | SPINAL | [...] | Other | | 2007 | | [facility] [address] | [address] | | | | | Ave Mailcode: CH8N | [place], [place] | | | | | [facility] | [address] | | | | | and [place], | [phone] | | | | | [facility] | | | | | | Floor [place], [place] | | | | | | [address] | | | | | | [phone] | | | +--------+ + + + [...]
--- OUTSIDE RECORDS SUMMARY | ~2019-12-04 | XMS | Encounter Summary ---
Demographics + + + | Address | [address] | | | [place] [address] | + + + | Home Phone [...] + + + | Author | [place] [facility] [facility] | + + + | Organization | [facility] [employer] [facility] [...] Team Providers + +------+ + | Care Refractory Repairer Name | Role | Phone | + +------+ + PCP | Unavailable | + +------+ + Encounter Details +--------+ + + + + | Date | Type | Department | Care Team | Description | +--------+ + + + + | 06/25/ | Telephone | Neurosurgery at | Steph Reyes MD | | | 2010 | | [facility] [address] | | | | | | [place] Mailcode: CH8N | | | | | | [facility] | | | | | | and Healing, | | | | | | Building [address], | | | | | | Floor [place], [place] | | | | | | [address] | | | | | | [phone] | | | +--------+ + + + [...]
--- OUTSIDE RECORDS SUMMARY | ~2019-12-04 | XMS | Encounter Summary ---
Demographics + + + | Address | [address] | | | [place] [address] | + + + | Home Phone [...] Organization | [facility] | | | and [...] Team Providers + +------+ + | Care Nitro Worker Name | Role | Phone | + +------+ + PCP | Unavailable | + +------+ + Encounter Details +--------+ + + + + | Date | Type | Department | Care Team | Description | +--------+ + + + + | 10/21/ | Hospital | [facility] | | | | 1991 | Encounter | [facility] | | | | | | HEALTH SV [address] | | | | | | [place], | | | | | | [place] [address] | | | | | | [phone] | | | +--------+ + + + [...]
--- OUTSIDE RECORDS SUMMARY | ~2019-12-04 | XMS | Encounter Summary ---
Demographics + + + | Address | [address] | | | [place] [address] | + + + | Home Phone [...] + + + | Author | [place] [employer] [facility] | + + + | Organization | [facility] [employer] [facility] | + [...] Providers + +------+ + | Care Yard Cleaner Name | Role | Phone | [...] [address] | [address] | | | | | [place] Mailcode: CH8N | [address] | | | | | [facility] | Rd [place], [place] | | | | | and Healing, | [address] | | | | | | [phone] | | | | | Floor [place], [place] | | | | | | [address] | | | | | | [phone] | | | +--------+ + + + [...]
--- OUTSIDE RECORDS SUMMARY | ~2019-12-04 | XMS | Encounter Summary ---
Demographics + + + | Address | [address] | | | [place] [address] | + + + | Home Phone | | + + + | Preferred Language | Unknown | + + + | Marital Status | | + + + | Baptist Affiliation | Unknown | + + + | Race | Unknown | + + + | Ethnic Group | Unknown | + + + Author + + + | Author | [facility] | | | and [place] | + + + | Organization | [facility] [...] Team Providers + +------+ + | Care Electroplating Sales Representative Name | Role | Phone | + +------+ + PCP | Unavailable | + +------+ + Encounter Details +--------+ + + + + | Date | Type | Department | Care Team | Description | +--------+ + + + + | 09/30/ | Hospital | [facility] | | | | 1991 | Encounter | [facility] | | | | | | HEALTH SV [address] | | | | | | [address], | | | | | | [place] [address] | | | | | | [phone] | | | +--------+ + + + [...]
--- OUTSIDE RECORDS SUMMARY | ~2019-12-04 | XMS | Encounter Summary ---
Demographics + + + | Address | [address] | | | [place] [address] | + + + | Home Phone [...] | Organization | [facility] | | [...] Providers + +------+ + | Care Yard Pilot Name | Role | Phone | + +------+ + PCP | Unavailable | + +------+ + Encounter Details +--------+ + + + + | Date | Type | Department | Care Team | Description | +--------+ + + + + | 10/02/ | Hospital | [facility] | | | | 1991 | Encounter | [facility] | | | | | | HEALTH [address] | | | | | | [place], | | | | | | [place] [address] | | | | | | [phone] | | | +--------+ + + + [...]
--- OUTSIDE RECORDS SUMMARY | ~2019-12-04 | XMS | Encounter Summary ---
Demographics + + + | Address | [address] | | | [place] [address] | + + + | Home Phone [...] Organization | [facility] [...] Team Providers + +------+ + | Care House Calls Nurse Practitioner Name | Role | Phone | + +------+ + PCP | Unavailable | + +------+ + Encounter Details +--------+ + + + + | Date | Type | Department | Care Team | Description | +--------+ + + + + | 06/22/ | Hospital | [facility] | Yovanny Suazo, | | | 1991 | Encounter | [facility] | MD [address] | | | | | [facility] [address] | [address] | | | | | [place], | [place] [address] | | | | | [place] [address] | [phone] | | | | | [phone] | | | +--------+ + + + [...]
--- OUTSIDE RECORDS SUMMARY | ~2019-12-04 | XMS | Encounter Summary ---
Demographics + + + | Address | [address] | | | [place] [address] | + + + | Home Phone [...] Organization | [facility] | | [...] Team Providers + +------+ + | Care Developer Prover Mechanical Name | Role | Phone | + +------+ + PCP | Unavailable | + +------+ + Encounter Details +--------+ + + + + | Date | Type | Department | Care Team | Description | +--------+ + + + + | 08/12/ | Hospital | [facility] | Jenn Oreilly, | | | 2012 | Encounter | HOSPITAL EMERGENCY | [facility] [address] | | | | | CENTER [address] | [place] | | | | | [place] | [id number] | | | | | [address] | | | | | | [phone] | | | +--------+ + + + [...]
--- OUTSIDE RECORDS SUMMARY | ~2019-12-04 | XMS | Encounter Summary ---
Demographics + + + | Address | [address] | | | [place] [address] | + + + | Home Phone [...] + + + | Author | [place] [employer] [facility] | + + + | Organization | [facility] [employer] [facility] [...] Team Providers + +------+ + | Care Male Infertility Specialist Name | Role | Phone | [...] | | [place] Mailcode:OP14B | Sandra Maloney [place], | | | | | [facility] | [place] [address] | | | | | [place], [place] | | | | | | [address] | | | | | | [phone] | | | +--------+ + + + [...]
--- OUTSIDE RECORDS SUMMARY | ~2019-12-04 | XMS | Encounter Summary ---
Demographics + + + | Address | [address] | | | [place] [address] | + + + | Home Phone [...] + + + | Author | [place] [employer] [facility] | + + + | Organization | [facility] [employer] [facility] | + + + | Address | Unknown | + + + | Phone | Unavailable | + + + Support + + +---------+ + | Name | Relationship | Address | Phone | + + +---------+ + | Ruby Au | ECON | Unknown | | + + +---------+ + Care Team Providers + +------+ + | Care Rd Lab Technician Name | Role | Phone | [...] Cerebri; | | 2006 | Visit | [place]/Ophthalmol | | Papilledema | | | | ogy at [facility] [address] | | Associated with | | | | [address] Mailcode: | | Increased | | | | CH11P Center for | | Intracranial | | | | Health and Healing, | | Pressure; Transient | | | | Building | | Visual Loss | | | | Floor [place], [place] | | | | | | [address] | | | | | | [phone] | | | +--------+---------+ + + + [...] HPI: 31 y.o. year old female from [place] : Patient presents with: Transient visual loss [...] seconds; these occur 2-3 x per w jamul. Hobbies: Tobacco use: reports that she has [...] patient to continue follow-up [facility] neuro[facility]. Follow up at [facility] prn new symptoms or complaints. WADE Jensen [...]
--- OUTSIDE RECORDS SUMMARY | ~2019-12-04 | XMS | Encounter Summary ---
Demographics + + + | Address | [address] | | | [place] [address] | + + + | Home Phone [...] + + | Author | [place] [employer] [facility] | + + + | Organization | [facility] [employer] [facility] | + [...] Providers + +------+ + | Care Freight Team Associate Name | Role | Phone | + +------+ + | Pedro Luis Sams MD | PCP | | + +------+ + Encounter Details +--------+ + + + + | Date | Type | Department | Care Team | Description | +--------+ + + + + | 08/31/ | Telephone | [facility] | Leticia Pitts MD | | | 2010 | | [place]/Ophthalmol | | | | | | leon at [facility] [address] | | | | | | Gianluca Kirk Mailcode: | | | | | | CH11P Center for | | | | | | Health and Healing, | | | | | | [facility] | | | | | | Floor [place], [place] | | | | | | [address] | | | | | | [phone] | | | +--------+ + + + [...]
--- OUTSIDE RECORDS SUMMARY | ~2019-12-04 | XMS | Encounter Summary ---
Demographics + + + | Address | [address] | | | [place] [address] | + + + | Home Phone [...] + + + | Author | [place] [employer] [facility] | + + + | Organization | [facility] [employer] [facility] | + + + | Address | Unknown | + + + | Phone | Unavailable | + + + Support + + +---------+ + | Name | Relationship | Address | Phone | + + +---------+ + | Ruby Au | ECON | Unknown | | + + +---------+ + Care Team Providers + +------+ + | Care Rigger Up Name | Role | Phone | + +------+ + | Pedro Luis Sams MD | PCP | | + +------+ + Encounter Details +--------+ + + + + | Date | Type | Department | Care Team | Description | +--------+ + + + + | 08/31/ | Telephone | [facility] | Leticia Pitts MD | | | 2010 | | [place]/Ophthalmol | | | | | | leon at [facility] [address] | | | | | | Gianluca Kirk Mailcode: | | | | | | CH11P Center for | | | | | | Health and Healing, | | | | | | [facility] | | | | | | Floor [place], [place] | | | | | | [address] | | | | | | [phone] | | | +--------+ + + + [...]
--- OUTSIDE RECORDS SUMMARY | ~2019-12-04 | XMS | Encounter Summary ---
Demographics + + + | Address | [address] | | | [place] [address] | + + + | Home Phone [...] + + + | Author | [place] [employer] [facility] | + + + | Organization | [facility] [employer] [facility] | + + + | Address | Unknown | + + + | Phone | Unavailable | + + + Support + + +---------+ + | Name | Relationship | Address | Phone | + + +---------+ + | Ruby Au | ECON | Unknown | | + + +---------+ + Care Team Providers + +------+ + | Care Animal Attendants And Trainers Name | Role | Phone | + [...] | | | REFERRAL TO | | [place], [place] | | | | | NEUROINTERVE | | [address] | | | | | NTIONAL | | Phone: | | | | | RADIOLOGY | | [phone] | | | | | PRACTICE | | Fax: | | | | | | | [phone] | +--------+--------+ + + + + Reason [...] Dx) | | | | Mailcode:OP14B | [place], [place] | | | | | Outpatient Clinic | [address] | | | | | Building [place], | [phone] | | | | | [place] [address] | | | | | | [phone] | | | +--------+---------+ + + + [...] resident s note. CASIMIRO PAYTON MD NEUROSURGERY [facility] [place] [address] Pascual Ballard - 12:00 PM [...] spots" and "tunnel vision." Last saw an correctional facility psychiatrist in [facility] 2 months ago. Reportedl y, this showed that her OS vision was worse - no reports available to me at this time. Was a lso admitted to the [facility] for CAPONE about a month ago. [...] Patient was also given a prescription for [place] for CAPONE until she establishs care with [...]
--- OUTSIDE RECORDS SUMMARY | ~2019-12-04 | XMS | Encounter Summary ---
Demographics + + + | Address | [address] | | | [place] [address] | + + + | Home Phone [...] + | Organization | [facility] | [...] Team Providers + +------+ + | Care Dinkey Locomotive Operator Name | Role | Phone | [...] [place] | | | | | | [address] | | | | | | [phone] | | | +--------+ + + + [...]
--- OUTSIDE RECORDS SUMMARY | ~2019-12-04 | XMS | Encounter Summary ---
Demographics + + + | Address | [address] | | | [place] [address] | + + + | Home Phone [...] + + | Author | [place] [employer] [facility] | + + + | Organization | [facility] [employer] [facility] | + + + | Address | Unknown | + + + | Phone | Unavailable | + + + Support + + +---------+ + | Name | Relationship | Address | Phone | + + +---------+ + | Ruby Au | ECON | Unknown | | + + +---------+ + Care Team Providers + +------+ + | Care Diet Consultant Name | Role | Phone | [...] + | 08/24/ | Emergency | [facility] Emergency | Tylor [place], | | | 2010 | | Department [address] | [address] | | | | | [address] | MD Joey [address] | | | | | [facility] | [facility] [place] | | | | | [place], [place] | [place], [place] | | | | | [address] | [address] | | | | | [phone] | [phone] | | | | | | | [...] us take care of you at [facility] today. Follow up with primary care [...] | + +---------+ + + | [facility] DEPARTMENT OF | | | | | [...]
--- OUTSIDE RECORDS SUMMARY | ~2019-12-04 | XMS | Encounter Summary ---
Demographics + + + | Address | [address] | | | [place] [address] | + + + | Home Phone [...] + + | Author | [place] [employer] [facility] | + + + | Organization | [facility] [employer] [facility] | + + [...] Providers + +------+ + | Care Production Scheduler Name | Role | Phone | + +------+ + | Brenden Benavides MD | PCP | | + +------+ + Encounter Details +--------+ + + + + | Date | Type | Department | Care Team | Description | +--------+ + + + + | 02/22/ | Telephone | [facility] | Hay Hughes MD [address] | | | 2006 | | [place] | [address] | | | | | Oculoplastics at | [place], [place] | | | | | [address] | [address] | | | | | [place] | [phone] | | | | | Mailcode: PATTI | | | | | | [place] [address] | | | | | | [phone] | | | +--------+ + + + [...]
--- OUTSIDE RECORDS SUMMARY | ~2019-12-04 | XMS | Encounter Summary ---
Demographics + + + | Address | [address] | | | [place] [address] | + + + | Home Phone [...] + + + | Author | [place] [employer] Science [facility] | + + + | Organization | Pending [facility] To [facility] [...] Team Providers + +------+ + | Care Sports Development Officer Name | Role | Phone | [...] + + | 08/24/ | Emergency | [facility] Emergency | Tylor Mcclellan, | | | 2010 | | Department [address] | [address] | | | | | [address] | MD Joey [address] | | | | | [facility] | [facility] [place] | | | | | [place], [place] | [place], [place] | | | | | [address] | [address] | | | | | [phone] | [phone] | | | | | | | [...] us take care of you at O [facility] today. Follow up with primary care [...] | | + +---------+ + + | [facility] DEPARTMENT OF | | | | [...]
--- OUTSIDE RECORDS SUMMARY | ~2019-12-04 | XMS | Encounter Summary ---
Demographics + + + | Address | [address] | | | [place] [address] | + + + | Home Phone [...] + | Organization | [facility] | | [...] Providers + +------+ + | Care Supervisor Line Department Name | Role | Phone | + +------+ + PCP | Unavailable | + +------+ + Encounter Details +--------+ + + + + | Date | Type | Department | Care Team | Description | +--------+ + + + + | 08/01/ | Hospital | [facility] | | | | 1991 | Encounter | [facility] | | | | | | HEALTH [address] | | | | | | [place], | | | | | | [place] [address] | | | | | | [phone] | | | +--------+ + + + [...]
--- OUTSIDE RECORDS SUMMARY | ~2019-12-04 | XMS | Encounter Summary ---
Demographics + + + | Address | [address] | | | [place] [address] | + + + | Home Phone [...] | Organization | [facility] [...] Providers + +------+ + | Care Processing Associate Name | Role | Phone | + +------+ + PCP | Unavailable | + +------+ + Encounter Details +--------+ + + + + | Date | Type | Department | Care Team | Description | +--------+ + + + + | 08/03/ | Hospital | [facility] | | | | 1990 | Encounter | MED CTR EMERGENCY | | | | | | CENTER [address] | | | | | | [place] | | | | | | [address] | | | | | | [phone] | | | +--------+ + + + [...]
--- OUTSIDE RECORDS SUMMARY | ~2019-12-04 | XMS | Encounter Summary ---
Demographics + + + | Address | [address] | | | [place] [address] | + + + | Home Phone [...] + + + | Author | [place] [employer] [facility] | + + + | Organization | [facility] [employer] [facility] | + [...] Team Providers + +------+ + | Care Woodwork Teacher Name | Role | Phone | [...] Care Coordination | | 2018 | | [place] | [address] | | | | | Neuro-Ophthalmology | [facility] [place] | | | | | at [facility] [address] | [address] | | | | | Ave Mailcode: CH3G | [phone] | | | | | [facility] | | | | | | and Healing, | | | | | | Building | | | | | | Floor [place], [place] | | | | | | [address] | | | | | | [phone] | | | +--------+ + + + [...]
--- OUTSIDE RECORDS SUMMARY | ~2019-12-04 | XMS | Encounter Summary ---
Demographics + + + | Address | [address] | | | [place] [address] | + + + | Home Phone [...] + + + | Author | [place] [employer] [facility] | + + + | Organization | [facility] [employer] [facility] | + [...] Team Providers + +------+ + | Care Dining Room Host Name | Role | Phone | + +------+ + PCP | Unavailable | + +------+ + Encounter Details +--------+ + + + + | Date | Type | Department | Care Team | Description | +--------+ + + + + | 08/23/ | Telephone | Neurosurgery at | Sam Pedroza MD | | | 2010 | | [facility] [address] | [address] | | | | | Ave Mailcode: CH8N | [place], [place] | | | | | [facility] | [address] | | | | | and Healing, | [phone] | | | | | [facility] | | | | | | Floor [place], [place] | | | | | | [address] | | | | | | [phone] | | | +--------+ + + + [...]
--- OUTSIDE RECORDS SUMMARY | ~2019-12-04 | XMS | Encounter Summary ---
Demographics + + + | Address | [address] | | | [place] [address] | + + + | Home Phone [...] + | Organization | [facility] | | | and [...] Providers + +------+ + | Care Editor Book Name | Role | Phone | + +------+ + PCP | Unavailable | + +------+ + Encounter Details +--------+ + + + + | Date | Type | Department | Care Team | Description | +--------+ + + + + | 10/02/ | Hospital | [facility] | | | | 1991 | Encounter | [facility] | | | | | | HEALTH SV [address] | | | | | | [place], | | | | | | [place] [address] | | | | | | [phone] | | | +--------+ + + + [...]
--- OUTSIDE RECORDS SUMMARY | ~2019-12-04 | XMS | Encounter Summary ---
Demographics + + + | Address | [address] | | | [place] [address] | + + + | Home Phone | | + + + | Preferred Language | Unknown | + + + | Marital Status | | + + + | Voodoo Affiliation | Unknown | + + + | Race | Unknown | + + + | Ethnic Group | Unknown | + + + Author + + + | Author | [facility] | | | and [place] | + + + | Organization | [facility] | [...] Team Providers + +------+ + | Care Forging Machine Hand Name | Role | Phone | + +------+ + PCP | Unavailable | + +------+ + Encounter Details +--------+ + + + + | Date | Type | Department | Care Team | Description | +--------+ + + + + | 09/30/ | Hospital | [facility] | | | | 1991 | Encounter | [facility] | | | | | | HEALTH SV [address] | | | | | | [place], | | | | | | [place] [address] | | | | | | [phone] | | | +--------+ + + + [...]
--- OUTSIDE RECORDS SUMMARY | ~2019-12-04 | XMS | Encounter Summary ---
Demographics + + + | Address | [address] | | | [place] [address] | + + + | Home Phone [...] + + | Author | [place] [employer] [facility] | + + + | Organization | [facility] [employer] [facility] | [...] Team Providers + +------+ + | Care Curriculum Development Manager Name | Role | Phone [...] Other | | 2005 | | DANI[facility]O [facility] | [place] [address] | | | | | [address] Mailcode:OP14B | [place], [place] | | | | | [facility] | [address] | | | | | [place], [place] | | | | | | [address] | | | | | | [phone] | | | +--------+ + + + [...]
--- OUTSIDE RECORDS SUMMARY | ~2019-12-04 | XMS | Encounter Summary ---
Demographics + + + | Address | [address] | | | [place] [address] | + + + | Home Phone [...] + + + | Author | [place] [employer] [facility] | + + + | Organization | [facility] [employer] [facility] | + + [...] Providers + +------+ + | Care Service Observer Name | Role | Phone | + +------+ + | Brenden Benavides MD | PCP | | + +------+ + Encounter Details +--------+ + + + + | Date | Type | Department | Care Team | Description | +--------+ + + + + | 01/05/ | Telephone | [facility] | Brad Currie MD | | | 2006 | | [place] | | | | | | Neuro-Ophthalmology | | | | | | [address] [facility] | | | | | | Mailcode: PATTI | | | | | | [place] [address] | | | | | | [phone] | | | +--------+ + + + [...]
--- OUTSIDE RECORDS SUMMARY | ~2019-12-04 | XMS | Encounter Summary ---
Demographics + + + | Address | [address] | | | [place] [address] | + + + | Home Phone [...] Providers + +------+ + | Care Roller Mechanic Name | Role | Phone | + +------+ + PCP | Unavailable | + +------+ + Encounter Details +--------+ + + + + | Date | Type | Department | Care Team | Description | +--------+ + + + + | 10/21/ | Hospital | [facility] | | | | 1991 | Encounter | [facility] | | | | | | HEALTH SV [address] | | | | | | [place], | | | | | | [place] [address] | | | | | | [phone] | | | +--------+ + + + [...]
--- OUTSIDE RECORDS SUMMARY | ~2019-12-04 | XMS | Encounter Summary ---
Demographics + + + | Address | [address] | | | [place] [address] | + + + | Home Phone [...] Organization | [facility] & [...] Team Providers + +------+ + | Care Ekg Monitor Name | Role | Phone | + +------+ + PCP | Unavailable | + +------+ + Encounter Details +--------+ + + + + | Date | Type | Department | Care Team | Description | +--------+ + + + + | 08/10/ | Hospital | [facility] | | | | 1990 | Encounter | MED CTR EMERGENCY | | | | | | CENTER [address] | | | | | | [place] | | | | | | [address] | | | | | | [phone] | | | +--------+ + + + [...]
--- OUTSIDE RECORDS SUMMARY | ~2019-12-04 | XMS | Encounter Summary ---
Demographics + + + | Address | [address] | | | [place] [address] | + + + | Home Phone [...] | Organization | [facility] | | | and [employer] | [...] Team Providers + +------+ + | Care Outlet Manager Name | Role | Phone | + +------+ + PCP | Unavailable | + +------+ + Encounter Details +--------+ + + + + | Date | Type | Department | Care Team | Description | +--------+ + + + + | 10/25/ | Hospital | [facility] | | | | 1991 | Encounter | MED CTR EMERGENCY | | | | | | CENTER [address] | | | | | | [place] | | | | | | [address] | | | | | | [phone] | | | +--------+ + + + [...]
--- OUTSIDE RECORDS SUMMARY | ~2019-12-04 | XMS | Encounter Summary ---
Demographics + + + | Address | [address] | | | [place] [address] | + + + | Home Phone [...] + + | Author | [place] [employer] [facility] | + + + | Organization | [facility] [employer] [facility] | + [...] Team Providers + +------+ + | Care Beef Skinner Name | Role | Phone | [...] | Other | | 2007 | | [facility] [address] | [address] | | | | | Ave Mailcode: CH8N | [place], [place] | | | | | [facility] | [address] | | | | | and Healing, | [phone] | | | | | [facility] | | | | | | Floor [place], [place] | | | | | | [address] | | | | | | [phone] | | | +--------+ + + + [...]
--- OUTSIDE RECORDS SUMMARY | ~2019-12-04 | XMS | Encounter Summary ---
Demographics + + + | Address | [address] | | | [place] [address] | + + + | Home Phone [...] + + + | Author | [place] [employer] [facility] | + + + | Organization | [facility] | [...] Team Providers + +------+ + | Care Strip Catcher Name | Role | Phone | + [...] | Visit | Medicine Clinic at | DIRECTOR OF AVIATION [address] | Pre-Operative | | | | [facility] 4th Floor [address] | Examination (Primary | | | | [address] | [place], [place] | Dx); Pseudotumor | | | | Mailcode: CH4S | [address] | Cerebri; Encounter | | | | [facility] | | for Long-Term | | | | and Healing, | | (Current) Use of | | | | Building 1,4th Floor | | Anticoagulants | | | | [place], [place] | | | | | | [address] | | | | | | [phone] | | | +--------+---------+ + + + [...] Scanned [facility] [address] [place] [address] And [facility],[address] [place] [address] [phone] documented in this encou nter Plan of [...] | + + + + + | [facility] DEPARTMENT OF | [address] [facility] | [place] [address] | | | PATHOLOGY | [address] | | | + + + + + | [facility] DE[facility]MENT [facility] | [address] [facility] | [place] [address] | | | PATHOLOGY | [address] [...] | [facility] | [address] [facility] | [place] [address] | | | PATHOLOGY | [address] | | | + + + + + | [facility] | [address] [facility] | [place] [address] | | | PATHOLOGY | [address] [...] [facility] DEPARTMENT OF | [address] [facility] | [place] [address] | | | PATHOLOGY | [address] | | | + + + + + | [facility] DEPARTMENT OF | [address] [facility] | [place] [address] | | | PATHOLOGY | [address] [...] | [facility] | [address] [facility] | [place] [address] | | | PATHOLOGY | [address] | | | + + + + + | [facility] | [address] [facility] | [place] [address] | | | PATHOLOGY | [address] [...] Performed At | + + + | [id number] Estimated GFR > 60 mL/min/1.73 sq m if non- | [facility] | | [place] [id number] Estimated GFR > 60 mL/min/1.73 sq m if | DEPARTMENT OF | | [place] GFR is estimated using the MDRD equation [...] | [facility] | [address] | [place] [address] | | | PATHOLOGY | [address] | | | + + + + + | [facility] | [facility] | [place] [address] | | | PATHOLOGY | [address] [...] | [facility] | [address] [facility] | [place] [address] | | | PATHOLOGY | [address] | | | + + + + + | [facility] | [address] [facility] | [place] [address] | | | PATHOLOGY | [address] | | | + + + + + documented in this encounter Visit Diagnoses + + | Diagnosis | + + | Other specified pre-operative examination - Primary | + + | Pseudotumor cerebri Benign intracranial hypertension | + + | assisted (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
--- OUTSIDE RECORDS SUMMARY | ~2019-12-04 | XMS | Encounter Summary ---
Demographics + + + | Address | [address] | | | [place] [address] | + + + | Home Phone [...] | Organization | [facility] | | | and [...] Team Providers + +------+ + | Care Farmworker Dairy Name | Role | Phone | + +------+ + PCP | Unavailable | + +------+ + Encounter Details +--------+ + + + + | Date | Type | Department | Care Team | Description | +--------+ + + + + | 06/20/ | Hospital | [facility] | Yovanny Suazo, | | | 1991 | Encounter | MED CTR WOMENS | MD [address] | | | | | [facility] [address] | [address] | | | | | [place], [place] [address] | | | | | [place] [address] | [phone] | | | | | [phone] | | | +--------+ + + + [...]
--- OUTSIDE RECORDS SUMMARY | ~2019-12-04 | XMS | Encounter Summary ---
Demographics + + + | Address | [address] | | | [place] [address] | + + + | Home Phone [...] + + + | Author | [place] [employer] [facility] | + + + | Organization | [facility] [employer] [facility] [...] Team Providers + +------+ + | Care Resume Specialist Name | Role | Phone | [...] | | | Ave Mailcode: CH8N | [place], [place] | | | | | [facility] | [address] | | | | | and Healing, | [phone] | | | | | [facility] | | | | | | Floor [place], [place] | | | | | | [address] | | | | | | [phone] | | | +--------+ + + + [...]
--- OUTSIDE RECORDS SUMMARY | ~2019-12-04 | XMS | Encounter Summary ---
Demographics + + + | Address | [address] | | | [place] [address] | + + + | Home Phone [...] + + + | Author | [place] [employer] [facility] | + + + | Organization | [facility] [employer] [facility] | + + + | Address | Unknown | + + + | Phone | Unavailable | + + + Support + + +---------+ + | Name | Relationship | Address | Phone | + + +---------+ + | Ruby Au | ECON | Unknown | | + + +---------+ + Care Team Providers + +------+ + | Care Mail Processing Machine Operator Name | Role | Phone | + +------+ + | Brenden Benavides MD | PCP | | + +------+ + Encounter Details +--------+ + + + + | Date | Type | Department | Care Team | Description | +--------+ + + + + | 02/23/ | Telephone | [facility] | Brad Currie MD | | | 2006 | | [place] | | | | | | Neuro-Ophthalmology | | | | | | [address] [facility] | | | | | | Mailcode: PATTI | | | | | | [place] [address] | | | | | | [phone] | | | +--------+ + + + [...]
--- OUTSIDE RECORDS SUMMARY | ~2019-12-04 | XMS | Encounter Summary ---
Demographics + + + | Address | [address] | | | [place] [address] | + + + | Home Phone [...] + + + | Author | [place] [employer] [facility] | + + + | Organization | [facility] [employer] [facility] | + + + | Address | Unknown | + + + | Phone | Unavailable | + + + Support + + +---------+ + | Name | Relationship | Address | Phone | + + +---------+ + | Ruby Au | ECON | Unknown | | + + +---------+ + Care Team Providers + +------+ + | Care Facing Grinder Name | Role | Phone | [...] | | | | | | [address] | | | | | | | Mailcode: | | | | | | | [facility] | | | | | | | [place], [place] | | | | | | | [address] Phone: | | | | | | | [phone] | | | | | | | Fax: | | | | | | | [phone] | +--------+--------+ + + + + Encounter Details +--------+ + + + + | Date | Type | Department | Care Team | Description | +--------+ + + + + | 03/26/ | Procedure | [facility] | | Visual field testing | | 2012 | | [place] [facility] | | | | | | [place] at [facility] [address] | | | | | | [address] | | | | | | Mailcode: CH11P | | | | | | [facility] | | | | | | and Healing, | | | | | | Building , | | | | | | Floor [place], [place] | | | | | | [address] | | | | | | [phone] | | | +--------+ + + + [...] PDT Annabella Au was seen in the [facility] [place] [facility] Department today, 2012, for 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 documented in this encounter Plan of Treatment Not on filedocumented as of this encounter Procedures + +--------+ + + + | Procedure Name | Priori | Date/Time | Associated Diagnosis | Comments | | | ty | | | | + +--------+ + + + | LA VISUAL FIELD | Routin | 03/26/2013 | [...]
--- OUTSIDE RECORDS SUMMARY | ~2019-12-04 | XMS | Encounter Summary ---
Demographics + + + | Address | [address] | | | [place] [address] | + + + | Home Phone [...] | Author | [facility] | | | and [place] | + + + | Organization | [facility] [...] Team Providers + +------+ + | Care Advertising Manager Name | Role | Phone | + +------+ + PCP | Unavailable | + +------+ + Encounter Details +--------+ + + + + | Date | Type | Department | Care Team | Description | +--------+ + + + + | 10/27/ | Hospital | [facility] | | | | 1990 | Encounter | MED CTR EMERGENCY | | | | | | CENTER [address] | | | | | | [place] | | | | | | [address] | | | | | | [phone] | | | +--------+ + + + [...]
--- OUTSIDE RECORDS SUMMARY | ~2019-12-04 | XMS | Encounter Summary ---
Demographics + + + | Address | [address] | | | [place] [address] | + + + | Home Phone [...] + + | Author | [place] [employer] [facility] | + + + | Organization | [facility] [employer] [facility] | + + [...] Providers + +------+ + | Care Insurance Claims Assistant Name | Role | Phone | [...] Refill Request | | 2007 | | [address] | [address] | | | | | Ave Mailcode: CH8N | [place], [place] | | | | | [facility] | [address] | | | | | and Healing, | [phone] | | | | | [facility] | | | | | | Floor [place], [place] | | | | | | [address] | | | | | | [phone] | | | +--------+--------+ + + + [...]
--- OUTSIDE RECORDS SUMMARY | ~2019-12-04 | XMS | Encounter Summary ---
Demographics + + + | Address | [address] | | | [place] [address] | + + + | Home Phone [...] + | Organization | [facility] | | | [...] Team Providers + +------+ + | Care Speech Therapist Early Intervention Name | Role | Phone | + +------+ + PCP | Unavailable | + +------+ + Encounter Details +--------+ + + + + | Date | Type | Department | Care Team | Description | +--------+ + + + + | 01/01/ | Hospital | [facility] | [place], | | | 2009 | Encounter | MED CTR EMERGENCY | Brad Yu MD [address] | | | | | [place] [address] | [place] | | | | | [place] | [place] [address] | | | | | [address] | [phone] | | | | | [phone] | | | +--------+ + + + [...]
--- OUTSIDE RECORDS SUMMARY | ~2019-12-04 | XMS | Encounter Summary ---
Demographics + + + | Address | [address] | | | [place] [address] | + + + | Home Phone [...] + + + | Author | [place] [employer] [facility] | + + + | Organization | [facility] [employer] [facility] | [...] Providers + +------+ + | Care Plastic Shaper Name | Role | Phone | + +------+ + | Yeison Simms MD | PCP | Unavailable | + +------+ + Encounter Details +--------+ + + + + | Date | Type | Department | Care Team | Description | +--------+ + + + + | 08/23/ | Telephone | Neurosurgery at | Kiki Rosen, | | | 2007 | | [facility] [address] | [place] | | | | | [place] Mailcode: CH8N | Neurosurgery [address] | | | | | [facility] | [address] | | | | | and Healing, | [place], [place] | | | | | [place] [address] | [address] | | | | | Floor [place], [place] | | | | | | [address] | | | | | | [phone] | | | +--------+ + + + [...]
--- OUTSIDE RECORDS SUMMARY | ~2019-12-04 | XMS | Encounter Summary ---
Demographics + + + | Address | [address] | | | [place] [address] | + + + | Home Phone [...] + + | Author | [place] [employer] Science [facility] | + + + | Organization | [facility] [...] + +------+ + | Care Heel Seat Laster Name | Role | Phone | + [...] Cerebri | | 2007 | Visit | [facility] [address] | [address] | (Primary Dx) | | | | Ave Mailcode: CH8N | [place], [place] | | | | | [facility] | [address] | | | | | and Healing, | [phone] | | | | | [facility] | | | | | | Floor [place], [place] | | | | | | [address] | | | | | | [phone] | | | +--------+---------+ + + + [...] wanted to have LP shunt instead of DISASTER RESPONSE DIRECTOR shunt because she d oes not weant [...]
--- OUTSIDE RECORDS SUMMARY | ~2019-12-04 | XMS | Encounter Summary ---
Demographics + + + | Address | [address] | | | [place] [address] | + + + | Home Phone [...] | [facility] | | | and [place] [...] Team Providers + +------+ + | Care Ship Engines Operating Engineer Name | Role | Phone | + +------+ + PCP | Unavailable | + +------+ + Encounter Details +--------+ + + + + | Date | Type | Department | Care Team | Description | +--------+ + + + + | 06/22/ | Hospital | [facility] | Yovanny Suazo, | | | 1991 | Encounter | MED CTR WOMENS | MD [address] | | | | | [facility] [address] | [address] | | | | | [place], | [place] [address] | | | | | [place] [address] | [phone] | | | | | [phone] | | | +--------+ + + + [...]
--- OUTSIDE RECORDS SUMMARY | ~2019-12-04 | XMS | Encounter Summary ---
Demographics + + + | Address | [address] | | | [place] [address] | + + + | Home Phone [...] + + + | Author | [place] [employer] [facility] | + + + | Organization | [facility] [employer] [facility] | + [...] Team Providers + +------+ + | Care Dolly Pusher Name | Role | Phone | + [...] | | | [facility] | [place], [place] | | | | | [place] | [address] | | | | | [address] | [phone] | | | | | [phone] | | | +--------+ + + + [...]
--- OUTSIDE RECORDS SUMMARY | ~2019-12-04 | XMS | Encounter Summary ---
Demographics + + + | Address | [address] | | | [place] [address] | + + + | Home Phone [...] + + + | Author | [place] [employer] [facility] | + + + | Organization | [facility] [employer] Systems [facility] [...] Providers + +------+ + | Care Tool Grinder Name | Role | Phone | [...] Request (Pt | | 2006 | | [place] | [address] | requests more pain | | | | Oculoplastics at | [place], [place] | medication) | | | | [address] | [address] | | | | | [place] | [phone] | | | | | Mailcode: CE | | | | | | [place] [address] | | | | | | [phone] | | | +--------+--------+ + + + [...]
--- OUTSIDE RECORDS SUMMARY | ~2019-12-04 | XMS | Encounter Summary ---
Demographics + + + | Address | [address] | | | [place] [address] | + + + | Home Phone [...] | [facility] | | | and [place] [...] Team Providers + +------+ + | Care Golf Player Assistant Name | Role | Phone | + +------+ + PCP | Unavailable | + +------+ + Encounter Details +--------+ + + + + | Date | Type | Department | Care Team | Description | +--------+ + + + + | 10/04/ | Hospital | [facility] | | | | 1991 | Encounter | [facility] | | | | | | HEALTH [facility] [address] | | | | | | [place], | | | | | | [place] [address] | | | | | | [phone] | | | +--------+ + + + [...]
--- OUTSIDE RECORDS SUMMARY | ~2019-12-04 | XMS | Encounter Summary ---
Demographics + + + | Address | [address] | | | [place] [address] | + + + | Home Phone [...] + + + | Author | [place] [employer] [facility] | + + + | Organization | [facility] [employer] Science [facility] [...] Team Providers + +------+ + | Care Soil Expert Name | Role | Phone | + [...] | | | | | [address] | [address] | | | | | | [address] | Mailcode: | | | | | | [place], [place] | [address] [facility] | | | | | | [address] | Hospital | | | | | | Phone: | [place], [place] | | | | | | [phone] | [address] | | | | | | Fax: | Phone: | | | | | | [phone] | [phone] | | | | | | | Fax: | | | | | | | [phone] | +--------+--------+ + + + + Reason for Visit + + + | Reason | Comments | + + + | 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 | | + + + Encounter Details +--------+ + + + + | Date | Type | Department | Care Team | Description | +--------+ + + + + | 03/13/ | Emergency | [facility] Emergency | Mack Castrejon MD | | | 2012 | | Department [address] | [address] [facility] | | | | | [address] | [facility] | | | | | [facility] | [place], [place] | | | | | [place], [place] | [address] | | | | | [address] | [phone] | | | | | [phone] | | | | | | | [...] documented in this encounter Discharge Instructions Instructions Agapito Carmichael - 03/13/2013Formatting of this note might be different from the irma aviva. Thanks for coming to [facility] today. Your head CT was negative for any new findings. The neurosurgeon did not think there was a malfunction in your shunt. The eyelet riveter recommends you taking Diomox again and follow up in 1 week at [facility]. Please follow up with your doctor. Rest, [...] | | DIP), POC | | | KRISAM | | | | | | ZACHARIAH [...] TOTH | [address] | [place], [place] | | | NACHO POINT OF CARE | [address] | [address] | | | TESTS | | | [...] | + + + + + | [facility] | [address] | [place] [address] | | | SERVICES, CORE | [address] [...] | | | | | CHRISTIANO TORRES ([id number]) | | | | | | on 03/14/2013 10:35:55 AM | | | | + + + + + + + + | Specimen | + + | | + + + + + | Narrative | Performed At | + + + | Please click | [facility] | | on view image for the detailed interpretation from Nasseo results. | CARDIOLOGY | + + + + + + + + | Performing | Address | City/State/Zipcode | Phone Number | | Organization | | | | + + + + + | [facility] | [address] | [place], [place] | | | CARDIOLOGY | [address] | [address] | | + + + + + [...] [facility] | [address] | [place], [place] | | | NACHO POINT OF CARE | [address] | [address] | | | TESTS | | | [...] | + + + + + | [facility] | [address] | [place] [address] | | | SERVICES, CORE | [address] [...] | + + + + + | [facility] | [address] | [place] [address] | | | SERVICES, CORE | SK[address] [...] | | | LABORATORY | | | LAO | | | SERVICES, | | | [...] | + + + + + | [facility] | [address] | [place] [address] | | | SERVICES, CORE | [address] [...] | + + + + + | [facility] | [address] | [place] [address] | | | SERVICES, CORE | SK[address] [...] + | [place] - AIRPORT - | [address] | [place] [address] | | | [place] | | | [...] | + + + + + | [facility] | [address] | [place] [address] | | | SERVICES, CORE | [address] [...]
--- OUTSIDE RECORDS SUMMARY | ~2019-12-04 | XMS | Encounter Summary ---
Demographics + + + | Address | [address] | | | [place] [address] | + + + | Home Phone [...] + + + | Author | [place] [employer] [facility] | + + + | Organization | [facility] [employer] Science [facility] | + [...] Team Providers + +------+ + | Care Rail Transportation Tabeler Name | Role | Phone | + [...] | Headache | | 2014 | | [place] | [address] | | | | | Neuro-Ophthalmology | [facility] [place] | | | | | at [facility] [address] | [address] | | | | | Ave Mailcode: [facility] | [phone] | | | | | [facility] | | | | | | and Healing, | | | | | | Building | | | | | | Floor [place], [place] | | | | | | [address] | | | | | | [phone] | | | +--------+ + + + [...]
--- OUTSIDE RECORDS SUMMARY | ~2019-12-04 | XMS | Encounter Summary ---
Demographics + + + | Address | [address] | | | [place] [address] | + + + | Home Phone [...] + + | Author | [place] [employer] Science [facility] | + + + | Organization | [facility] [employer] Science [facility] | [...] Providers + +------+ + | Care Crew Foreman Name | Role | Phone | [...] | | | Ave Mailcode: CH8N | [place], [place] | | | | | [facility] | [address] | | | | | and Healing, | [phone] | | | | | [facility] | | | | | | Floor [place], [place] | | | | | | [address] | | | | | | [phone] | | | +--------+ + + + [...]
--- OUTSIDE RECORDS SUMMARY | ~2019-12-04 | XMS | Encounter Summary ---
Demographics + + + | Address | [address] | | | [place] [address] | + + + | Home Phone [...] + + + | Author | [place] [employer] Science [facility] | + + + | Organization | [facility] [employer] Science [facility] [...] + +------+ + | Care Utility Worker Production Name | Role | Phone | + +------+ + | Brenden Benavides MD | PCP | | + +------+ + Encounter Details +--------+ + + + + | Date | Type | Department | Care Team | Description | +--------+ + + + + | 02/22/ | Telephone | [facility] | Brad Currie MD | | | 2006 | | [place] | | | | | | Neuro-Ophthalmology | | | | | | [address] [facility] | | | | | | Mailcode: PATTI | | | | | | [place] [address] | | | | | | [phone] | | | +--------+ + + + [...]
--- OUTSIDE RECORDS SUMMARY | ~2019-12-04 | XMS | Encounter Summary ---
Demographics + + + | Address | [address] | | | [place] [address] | + + + | Home Phone [...] + + + | Author | [place] [employer] [facility] | + + + | Organization | [facility] [employer] Science [facility] | + + [...] | | | | | cerebri | [address] | | | | | | Procedures | Ave | | | | | | CONSULT TO | [place], [place] | | | | | | [facility] | [address] | | | | | | | Phone: | | | | | | | [phone] | | | | | | | Fax: | | | | | | | [phone] | | +--------+--------+ + + + + [...] | 2005 | Visit | [address] [facility] | [address] | (Primary Dx) | | | | Rd Mailcode:OP14B | [place], [place] | | | | | [facility] | [address] | | | | | [place], [place] | [phone] | | | | | [address] | | | | | | [phone] | | | +--------+---------+ + + + [...] pressu re. Referral to Dr. Maloney in [place], [place] where a lumboperitoneal shunt was placed and subsequently explanted due to infection and migration of the catheter tip from the peritoneal space. She feels that her symptoms were helped at the time of the placement of the shunt; the head aches and visual problems have worsened since shunt removal. She has opted to come to [facility] rather than to return to [place] based on travel convenience. Review of Systems: [...] brain without; Neuro-ophthalmology consultation. [facility] Plan of Treatment Not on [...] | | + +---------+ + + | [facility] DEPARTMENT OF | | | | | RADIOLOGY | | | | + +---------+ + + documented in this encounter Visit Diagnoses + + | Diagnosis | + + | Pseudotumor cerebri - Primary Benign intracranial hypertension | + + documented in this encounter
--- OUTSIDE RECORDS SUMMARY | ~2019-12-04 | XMS | Encounter Summary ---
Demographics + + + | Address | [address] | | | [place] [address] | + + + | Home Phone [...] + + | Author | [place] [employer] [facility] | + + + | Organization | [facility] Vetiary Science [facility] [...] Team Providers + +------+ + | Care Van Owner Operator Name | Role | Phone | [...] | | 2008 | | [facility] [address] | FLORA JOSE | | | | | [place] Mailcode: CH8N | Neurosurgery [address] | | | | | [facility] | [address] | | | | | and Healing, | [place], [place] | | | | | [place] [address] | [address] | | | | | Floor [place], [place] | | | | | | [address] | | | | | | [phone] | | | +--------+ + + + [...]
--- OUTSIDE RECORDS SUMMARY | ~2019-12-04 | XMS | Encounter Summary ---
Demographics + + + | Address | [address] | | | [place] [address] | + + + | Home Phone [...] | Organization | [facility] | | [...] Team Providers + +------+ + | Care Bulk Fluids Handler Name | Role | Phone | + +------+ + PCP | Unavailable | + +------+ + Encounter Details +--------+ + + + + | Date | Type | Department | Care Team | Description | +--------+ + + + + | 11/22/ | Hospital | [facility] | | | | 1995 | Encounter | MED CTR EMERGENCY | | | | | | CENTER [address] | | | | | | [place] | | | | | | [address] | | | | | | [phone] | | | +--------+ + + + [...]
--- OUTSIDE RECORDS SUMMARY | ~2019-12-04 | XMS | Encounter Summary ---
Demographics + + + | Address | [address] | | | [place] [address] | + + + | Home Phone [...] | Organization | [facility] | [...] Team Providers + +------+ + | Care Floor Worker Transfer Bay Name | Role | Phone | + +------+ + PCP | Unavailable | + +------+ + Encounter Details +--------+ + + + + | Date | Type | Department | Care Team | Description | +--------+ + + + + | 09/07/ | Hospital | [facility] | | | | 1991 | Encounter | MED CTR EMERGENCY | | | | | | CENTER [address] | | | | | | [place] | | | | | | [address] | | | | | | [phone] | | | +--------+ + + + [...]
--- OUTSIDE RECORDS SUMMARY | ~2019-12-04 | XMS | Encounter Summary ---
Demographics + + + | Address | [address] | | | [place] [address] | + + + | Home Phone [...] | Author | [facility] | | | and [place] | + + + | Organization | [facility] | | | and [place] [...] Team Providers + +------+ + | Care Humanities Division Chair Name | Role | Phone | + +------+ + PCP | Unavailable | + +------+ + Encounter Details +--------+ + + + + | Date | Type | Department | Care Team | Description | +--------+ + + + + | 10/29/ | Hospital | [facility] | | | | 1991 | Encounter | MED CTR EMERGENCY | | | | | | CENTER [address] | | | | | | [place] | | | | | | [address] | | | | | | [phone] | | | +--------+ + + + [...]
--- OUTSIDE RECORDS SUMMARY | ~2019-12-04 | XMS | Encounter Summary ---
Demographics + + + | Address | [address] | | | [place] [address] | + + + | Home Phone [...] + + + | Author | [place] [employer] [facility] | + + + | Organization | [facility] [employer] [facility] | + + [...] Neurosurgery [address] | | | | | [facility] | [address] | | | | | and Healing, | [place], [place] | | | | | Building | [address] | | | | | Floor [place], [place] | | | | | | [address] | | | | | | [phone] | | | +--------+--------+ + + + [...]
--- OUTSIDE RECORDS SUMMARY | ~2019-12-04 | XMS | Encounter Summary ---
Demographics + + + | Address | [address] | | | [place] [address] | + + + | Home Phone [...] + + + | Author | [place] [employer] [facility] | + + + | Organization | [facility] freshbag Science [facility] | + [...] Team Providers + +------+ + | Care Program Checker Name | Role | Phone | [...] | | | Ave Mailcode: CH8N | [place], [place] | | | | | [facility] | [address] | | | | | and Healing, | [phone] | | | | | [facility] | | | | | | Floor [place], [place] | | | | | | [address] | | | | | | [phone] | | | +--------+ + + + [...]
--- OUTSIDE RECORDS SUMMARY | ~2019-12-04 | XMS | Encounter Summary ---
Demographics + + + | Address | [address] | | | [place] [address] | + + + | Home Phone [...] + + + | Author | [place] AFTER-MOUSE Science [facility] | + + + | Organization | [facility] [employer] Science [facility] [...] Providers + +------+ + | Care Supervisor Instrument Maintenance Name | Role | Phone | + [...] Cerebri; | | 2006 | Visit | [place]/Ophthalmol | | Papilledema | | | | ogy at [facility] [address] | | Associated with | | | | [address] Mailcode: | | Increased | | | | CH11P [facility] | | Intracranial | | | | Health and Healing, | | Pressure; Transient | | | | Building | | Visual Loss | | | | Floor [place], [place] | | | | | | [address] | | | | | | [phone] | | | +--------+---------+ + + + [...] HPI: 31 y.o. year old female from [place] : Patient presents with: Transient visual loss [...] seconds; these occur 2-3 x per w shishmaref ira. Hobbies: Tobacco use: reports that she has [...] patient to continue follow-up for psuedotumor w [facility] neuro-ophth. Follow up at [facility] prn new symptoms or complaints. WADE Jensen [...]
--- OUTSIDE RECORDS SUMMARY | ~2019-12-04 | XMS | Encounter Summary ---
Demographics + + + | Address | [address] | | | [place] [address] | + + + | Home Phone [...] + + | Author | [place] [employer] [facility] | + + + | Organization | [facility] [employer] [facility] [...] Providers + +------+ + | Care Hand Expansion Envelope Maker Name | Role | Phone | [...] Cerebri | | 2006 | Visit | [place] | | (Primary Dx) | | | | Neuro-Ophthalmology | | | | | | [address] [facility] | | | | | | Mailcode: PATTI | | | | | | [place] [address] | | | | | | [phone] | | | +--------+---------+ + + + [...] documented as of this encounter Progress Notes RileyBrad - 11/30/2006 11:58 AM PSTFormatting of this [...] Brad Currie MD Neuro-Ophthalmology and Cerebrovascular Disease Cold Header of Ophthalmology, Neurology, and Neurosurgery documented in [...]
--- OUTSIDE RECORDS SUMMARY | ~2019-12-04 | XMS | Encounter Summary ---
Demographics + + + | Address | [address] | | | [place] [address] | + + + | Home Phone [...] + + + | Author | [place] Hubba [facility] | + + + | Organization | [facility] C4Robo Science [facility] | [...] Providers + +------+ + | Care It Training Specialist Name | Role | Phone | [...] + + | 06/24/ | Emergency | [facility] Emergency | | | | 2010 | | Department [address] | | | | | | [address] | | | | | [facility] | | | | | | [place], [place] | | | | | | [address] | | | | | | [phone] | | | +--------+ + + + [...]
--- OUTSIDE RECORDS SUMMARY | ~2019-12-04 | XMS | Encounter Summary ---
Demographics + + + | Address | [address] | | | [place] [address] | + + + | Home Phone [...] + | Organization | [facility] | | [...] Team Providers + +------+ + | Care Cut Off Man Name | Role | Phone | [...] | | | [place] | [address] | | | | | [address] | [phone] | | | | | [phone] | | | +--------+ + + + [...]
--- OUTSIDE RECORDS SUMMARY | ~2019-12-04 | XMS | Encounter Summary ---
Demographics + + + | Address | [address] | | | [place] [address] | + + + | Home Phone [...] + + + | Author | [place] [employer] [facility] | + + + | Organization | [facility] Status[facility] | + + + | Address | Unknown | + + + | Phone | Unavailable | + + + Support + + +---------+ + | Name | Relationship | Address | Phone | + + +---------+ + | Ruby Au | ECON | Unknown | | + + +---------+ + Care Team Providers + +------+ + | Care Foil Stamp Operator Name | Role | Phone | [...] Cerebri | | 2006 | Visit | [place] | | (Primary Dx) | | | | Neuro-Ophthalmology | | | | | | [address] [facility] | | | | | | Mailcode: PATTI | | | | | | [place] [address] | | | | | | [phone] | | | +--------+---------+ + + + [...] CASIMIRO PAYTON MD [address] [place] [address] Per [facility] chart note taken this morning by . Symptoms: Patient specific problem noted by patient: transient visual loss HPI: 31 y.o. year old female from [place] : Patient presents with: Transient visual loss [...] negative Pulmonary: negative GI: Problems due to group home use of tylenol/ibuprofen. : negative Musculoskeletal: negative [...] Brad Currie MD Neuro-Ophthalmology and Cerebrovascular Disease Towboat Operator of Ophthalmology, Neurology, and Neurosurgery documented [...]
--- OUTSIDE RECORDS SUMMARY | ~2019-12-04 | XMS | Clinical Summary ---
Demographics + + + | Address | [address] | | | [place] [address] | + + + | Home Phone | | + + + | Preferred Language | Unknown | + + + | Marital Status | | + + + | Zoroastrianism Affiliation | Unknown | + + + | Race | Unknown | + + + | Ethnic Group | Unknown | + + + Author + + + | Author | [place] [employer] (Historical as of | | | 07-14-19) | + + + | Organization | [facility] En[facility] [employer] (Historical as of | | | 07-14-19) [...] Team Providers + +------+ + | Care Cylinder Batcher Name | Role | Phone | + [...] +------+-------+ + | MEDICAID | MEDICA | [id number] | | | [address] | | | [place] | | | | [place], [place] | | | [place] | | | | [address] | + +--------+ +------+-------+ + | [place] | YELLOW | [id number] | | | | | PLANS | [...] | | sameera/Jean-Claude | | 1974 | [phone] | [place] | | | rene | | | [address] | [address] | + +--------+ +--------+ + +
--- OUTSIDE RECORDS SUMMARY | ~2019-12-04 | XMS | Encounter Summary ---
Demographics + + + | Address | [address] | | | [place] [address] | + + + | Home Phone [...] + + | Author | [place] [employer] [facility] | + + + | Organization | [facility] DIVINE BOOKS [facility] [...] Team Providers + +------+ + | Care Executive Casino Host Name | Role | Phone | [...] Refill Request | | 2006 | | [address] | [address] | | | | | Oculoplastics at | Rd [place], [place] | | | | | [address] | [address] | | | | | [address] | | | | | | Mailcode: CE | | | | | | [place] [address] | | | | | | [phone] | | | +--------+ + + + [...]
--- OUTSIDE RECORDS SUMMARY | ~2019-12-04 | XMS | Encounter Summary ---
Demographics + + + | Address | [address] | | | [place] [address] | + + + | Home Phone | | + + + | Preferred Language | Unknown | + + + | Marital Status | | + + + | Amish Affiliation | Unknown | + + + | Race | Unknown | + + + | Ethnic Group | Unknown | + + + Author + + + | Author | [facility] | | | and [place] | + + + | Organization | [facility] | | | and [place] [...] Team Providers + +------+ + | Care Compressed Gases Tester Name | Role | Phone | + +------+ + PCP | Unavailable | + +------+ + Encounter Details +--------+ + + + + | Date | Type | Department | Care Team | Description | +--------+ + + + + | 04/26/ | Hospital | [facility] | [place] | | | 2009 | Encounter | HOSPITAL EMERGENCY | [address] | | | | | CENTER [address] | [address] | | | | | [address] [place] | [place] [address] | | | | | [address] | [phone] | | | | | [phone] | | | +--------+ + + + [...]
--- OUTSIDE RECORDS SUMMARY | ~2019-12-04 | XMS | Encounter Summary ---
Demographics + + + | Address | [address] | | | [place] [address] | + + + | Home Phone [...] + + + | Author | [place] [employer] [facility] | + + + | Organization | [facility] XDC [facility] | + [...] Team Providers + +------+ + | Care Sign Writer Hand Name | Role | Phone | [...] Cerebri | | 2006 | Visit | [place] | | (Primary Dx) | | | | Neuro-Ophthalmology | | | | | | [address] [facility] | | | | | | Mailcode: CE | | | | | | [place] [address] | | | | | | [phone] | | | +--------+---------+ + + + [...] Referred by: CASIMIRO PAYTON MD [address] [place] [address] Symptoms: She has not been taking her [...] Brad Currie MD Neuro-Ophthalmology and Cerebrovascular Disease Warehouse Assembly Worker of Ophthalmology, Neurology, and Neurosurgery documented in this encounter Plan of Treatment + + +--------+ + + | Name | Type | Priori | Associated Diagnoses | Order Schedule | | | | ty | | | + + +--------+ + + | [place] VISUAL FIELD | Procedures | Routin | Pseudotumor | Ordered: 12/19/2006 | | EXAM,EXTENDED | | e | Cerebri | | + + +--------+ + + documented as of this encounter Visit Diagnoses + + | Diagnosis | + + | Pseudotumor cerebri - Primary Benign intracranial hypertension | + + documented in this encounter"
--- OUTSIDE RECORDS SUMMARY | ~2019-12-04 | XMS | Encounter Summary ---
Demographics + + + | Address | [address] | | | [place] [address] | + + + | Home Phone [...] + + + | Author | [place] Free[employer]rie Science [facility] | + + + | Organization | [facility] [...] Providers + +------+ + | Care Jig Grinder Set Up Operator Name | Role | Phone | [...] Refill Request | | 2007 | | [facility] [address] | [place]SE | | | | | [place] Mailcode: CH8N | Neurosurgery [address] | | | | | [facility] | [address] | | | | | and Healing, | [place], [place] | | | | | Building | [address] | | | | | Floor [place], [place] | | | | | | [address] | | | | | | [phone] | | | +--------+--------+ + + + [...]
--- OUTSIDE RECORDS SUMMARY | ~2019-12-04 | XMS | Encounter Summary ---
Demographics + + + | Address | [address] | | | [place] [address] | + + + | Home Phone [...] + | Organization | [facility] | | | and [place] [...] Team Providers + +------+ + | Care Diecast Machine Operator Name | Role | Phone | + +------+ + PCP | Unavailable | + +------+ + Encounter Details +--------+ + + + + | Date | Type | Department | Care Team | Description | +--------+ + + + + | 07/14/ | Hospital | [facility] | | | | 1998 | Encounter | MED CTR EMERGENCY | | | | | | CENTER [address] | | | | | | [place] | | | | | | [address] | | | | | | [phone] | | | +--------+ + + + [...]
--- OUTSIDE RECORDS SUMMARY | ~2019-12-04 | XMS | Encounter Summary ---
Demographics + + + | Address | [address] | | | [place] [address] | + + + | Home Phone [...] Organization | [facility] | | | and [...] Team Providers + +------+ + | Care Bell Neck Hammerer Name | Role | Phone | + +------+ + PCP | Unavailable | + +------+ + Encounter Details +--------+ + + + + | Date | Type | Department | Care Team | Description | +--------+ + + + + | 09/27/ | Hospital | [facility] | | | | 1991 | Encounter | MED CTR [facility]ENS | | | | | | HEALTH [address] | | | | | | [address], | | | | | | [place] [address] | | | | | | [phone] | | | +--------+ + + + [...]
--- OUTSIDE RECORDS SUMMARY | ~2019-12-04 | XMS | Encounter Summary ---
Demographics + + + | Address | [address] | | | [place] [address] | + + + | Home Phone [...] | [facility] | [...] Providers + +------+ + | Care Film Washer Name | Role | Phone | + +------+ + PCP | Unavailable | + +------+ + Encounter Details +--------+ + + + + | Date | Type | Department | Care Team | Description | +--------+ + + + + | 04/21/ | Hospital | [facility] | | | | 1995 | Encounter | MED CTR EMERGENCY | | | | | | CENTER [address] | | | | | | [place] | | | | | | [address] | | | | | | [phone] | | | +--------+ + + + [...]
--- OUTSIDE RECORDS SUMMARY | ~2019-12-04 | XMS | Encounter Summary ---
Demographics + + + | Address | [address] | | | [place] [address] | + + + | Home Phone [...] + + + | Author | [place] [employer] [facility] | + + + | Organization | [facility] [employer] [facility] | + + [...] Providers + +------+ + | Care Automotive Glass Mechanic Name | Role | Phone | [...] Rd | | | | | | [place], [place] | | | | | | [address] | | | +--------+ + + + [...]
--- OUTSIDE RECORDS SUMMARY | ~2019-12-04 | XMS | Encounter Summary ---
Demographics + + + | Address | [address] | | | [place] [address] | + + + | Home Phone [...] + | Organization | [facility] [...] Team Providers + +------+ + | Care Brick Pitcher Name | Role | Phone | + +------+ + PCP | Unavailable | + +------+ + Encounter Details +--------+ + + + + | Date | Type | Department | Care Team | Description | +--------+ + + + + | 04/24/ | Hospital | [facility] | | | | 2004 | Encounter | MED CTR EMERGENCY | | | | | | CENTER [address] | | | | | | [place] | | | | | | [address] | | | | | | [phone] | | | +--------+ + + + [...]
--- OUTSIDE RECORDS SUMMARY | ~2019-12-04 | XMS | Encounter Summary ---
Demographics + + + | Address | [address] | | | [place] [address] | + + + | Home Phone [...] | Organization | [facility] | [...] Providers + +------+ + | Care Research Analyst Name | Role | Phone | + +------+ + PCP | Unavailable | + +------+ + Encounter Details +--------+ + + + + | Date | Type | Department | Care Team | Description | +--------+ + + + + | 10/18/ | Hospital | [facility] | | | | 1991 | Encounter | [facility] | | | | | | HEALTH [address] | | | | | | [address], | | | | | | [place] [address] | | | | | | [phone] | | | +--------+ + + + [...]
--- OUTSIDE RECORDS SUMMARY | ~2019-12-04 | XMS | Encounter Summary ---
Demographics + + + | Address | [address] | | | [place] [address] | + + + | Home Phone [...] + + | Author | [place] [employer] [facility] | + + + | Organization | [email or web address] [facility] | + + [...] Providers + +------+ + | Care Student Specialist Name | Role | Phone | [...] [facility] [address] | [address] | | | | | Ave Mailcode: CH8N | [place], [place] | | | | | [facility] | [address] | | | | | and [place], | [phone] | | | | | [facility] | | | | | | Floor [place], [place] | | | | | | [address] | | | | | | [phone] | | | +--------+ + + + [...]
--- OUTSIDE RECORDS SUMMARY | ~2019-12-04 | XMS | Encounter Summary ---
Demographics + + + | Address | [address] | | | [place] [address] | + + + | Home Phone [...] + + + | Author | [place] [employer] [facility] | + + + | Organization | [facility] OrderBorder [facility] | + [...] Providers + +------+ + | Care Fireworks Display Specialist Name | Role | Phone | [...] | | | | | cerebri | [address] | | | | | | Procedures | Ave | | | | | | CONSULT TO | [place], [place] | | | | | | [facility] | [address] | | | | | | | Phone: | | | | | | | [phone] | | | | | | | Fax: | | | | | | | [phone] | | +--------+--------+ + + + + [...] | 2005 | Visit | [facility] | [address] | (Primary Dx) | | | | Rd Mailcode:OP14B | [place], [place] | | | | | [facility] | [address] | | | | | [place], [place] | [phone] | | | | | [address] | | | | | | [phone] | | | +--------+---------+ + + + [...] pressu re. Referral to Dr. Maloney in [place] where a lumboperitoneal shunt was placed and subsequently explanted due to infection and migration of the catheter tip from the peritoneal space. She feels that her symptoms were helped at the time of the placement of the shunt; the head aches and visual problems have worsened since shunt removal. She has opted to come to [facility] rather than to return to [place] based on travel convenience. Review of Systems: [...] brain without; Neuro-ophthalmology consultation. documented in this [facility] er Plan of Treatment Not on filedocumented [...] | | + +---------+ + + | [facility] DEPARTMENT OF | | | | | RADIOLOGY | | | | + +---------+ + + documented in this encounter Visit Diagnoses + + | Diagnosis | + + | Pseudotumor cerebri - Primary Benign intracranial hypertension | + + documented in this encounter
--- OUTSIDE RECORDS SUMMARY | ~2019-12-04 | XMS | Encounter Summary ---
Demographics + + + | Address | [address] | | | [place] [address] | + + + | Home Phone [...] + + + | Author | [place] in[employer]nite Science [facility] | + + + | Organization | [facility] [employer] [facility] | + + + | Address | Unknown | + + + | Phone | Unavailable | + + + Support + + +---------+ + | Name | Relationship | Address | Phone | + + +---------+ + | Ruby Au | ECON | Unknown | | + + +---------+ + Care Team Providers + +------+ + | Care Signals Intelligence Analyst Name | Role | Phone | [...] | | Ophthalmology | | Non-[facility] | [place], | | | | | | Epic Dept | Graciela Guardado MD | | | | | | | [address] | | | | | | | [address] | | | | | | | [place], [place] | | | | | | | [address] | | | | | | | Phone: | | | | | | | [phone] | | | | | | | Fax: | | | | | | | [phone] | +--------+--------+ + + + + Encounter Details +--------+---------+ + + + | Date | Type | Department | Care Team | Description | +--------+---------+ + + + | 03/26/ | Office | [facility] | Mo Hood | Pseudotumor cerebri | | 2012 | Visit | [place]/Ophthalmol | MD Perry | (Primary Dx); | | | | ogy at [facility] [address] | | Depression; Type II | | | | [address] [place] Mailcode: | | or unspecified type | | | | [address] for | | diabetes mellitus | | | | Health and Healing, | | without mention of | | | | Building | | complication, not | | | | Floor [place], [place] | | stated as | | | | [address] | | uncontrolled; PTSD | | | | [phone] | | (post-traumatic | | | | [...] HPI: 37 y.o. year old female from [place] : Patient presents with: IIH - Idiopathic [...] because they live 4 hours away in [facility]. Tobacco use: reports that she has been [...] Right Left Disc 1+ Optic disc edema, +TRANSPORT ANALYST 2+ Optic disc edema, RNFL whitening at the superonasal borde r of the disc. There is spontaneous pulsing of the entire disc head with heart beat. C/D Ratio 0.1 0.1 Macula Normal Normal Vessels Engorged. tortuous Engorged. tortuous Periphery Normal Normal Neuro/Psych Oriented x3: Yes Mood/Affect: Normal See [facility] Ophthalmology Exam Module for additional exam [...] [facility] in 2006) and s/p multiple lumboperitoneal shunt [...] Dr. Lux. Mo Hood MD Resident Physician [facility], PGY-2 [facility] Physician: Mo Hood MD, 03/26/2013 documented in [...]
--- OUTSIDE RECORDS SUMMARY | ~2019-12-04 | XMS | Encounter Summary ---
Demographics + + + | Address | [address] | | | [place] [address] | + + + | Home Phone [...] + + + | Author | [place] [employer] [facility] | + + + | Organization | [facility] [employer] [facility] | + + [...] Providers + +------+ + | Care Mail Processor Name | Role | Phone | + [...] Cerebri; | | 2005 | Visit | [place] | | Common Migraine | | | | Neuro-Ophthalmology | | without Mention of | | | | [address] | | Intractable Migraine | | | | Mailcode: CEI | | | | | | [place] [address] | | | | | | [phone] | | | +--------+---------+ + + + [...] 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
--- OUTSIDE RECORDS SUMMARY | ~2019-12-04 | XMS | Encounter Summary ---
Demographics + + + | Address | [address] | | | [place] [address] | + + + | Home Phone [...] + + + | Author | [place] [employer] Science [facility] | + + + | Organization | [facility] [employer]dMed Science [facility] [...] Team Providers + +------+ + | Care Model Maker Scale Name | Role | Phone | + [...] | | | | Mailcode: PV01 | [place], [place] | | | | | [facility] | [address] | | | | | [place], [place] | [phone] | | | | | [address] | | | | | | [phone] | | | +--------+ + + + [...]
--- OUTSIDE RECORDS SUMMARY | ~2019-12-04 | XMS | Encounter Summary ---
Demographics + + + | Address | [address] | | | [place] [address] | + + + | Home Phone [...] + | Organization | [facility] [...] Providers + +------+ + | Care House Manager Name | Role | Phone | + +------+ + PCP | Unavailable | + +------+ + Encounter Details +--------+ + + + + | Date | Type | Department | Care Team | Description | +--------+ + + + + | 10/22/ | Hospital | [facility] | | | | 1991 - | Encounter | [facility] | | | | | | [facility] [address] | | | | 10/24/ | | [place], | | | | 1991 | | [place] [address] | | | | | | [phone] | | | +--------+ + + + [...]
--- OUTSIDE RECORDS SUMMARY | ~2019-12-04 | XMS | Encounter Summary ---
Demographics + + + | Address | [address] | | | [place] [address] | + + + | Home Phone [...] + + + | Author | [place] [facility] [place] [facility] | + + + | Organization | [facility] [employer]Cloud [employer] [facility] [...] Team Providers + +------+ + | Care Elevator Mechanic Name | Role | Phone | [...] | | | Ave Mailcode: CH8N | [place], [place] | | | | | [facility] | [address] | | | | | and Healing, | [phone] | | | | | [facility] | | | | | | Floor [place], [place] | | | | | | [address] | | | | | | [phone] | | | +--------+ + + + [...]
--- OUTSIDE RECORDS SUMMARY | ~2019-12-04 | XMS | Encounter Summary ---
Demographics + + + | Address | [address] | | | [place] [address] | + + + | Home Phone [...] + + + | Author | [place] [employer]T [employer] [facility] | + + + | Organization | [facility] Blink for iPhone and Android [facility] [...] Team Providers + +------+ + | Care Book Editor Name | Role | Phone | + +------+ + | Brenden Benavides MD | PCP | | + +------+ + Encounter Details +--------+ + + + + | Date | Type | Department | Care Team | Description | +--------+ + + + + | 02/23/ | Telephone | [facility] | Brad Currie MD | | | 2006 | | [place] | | | | | | Neuro-Ophthalmology | | | | | | [address] | | | | | | Mailcode: PATTI | | | | | | [place] [address] | | | | | | [phone] | | | +--------+ + + + [...]
--- OUTSIDE RECORDS SUMMARY | ~2019-12-04 | XMS | Encounter Summary ---
Demographics + + + | Address | [address] | | | [place] [address] | + + + | Home Phone [...] + + + | Author | [place] [employer] Science [facility] | + + + | Organization | [facility] A[employer]os [employer] Science [facility] | + [...] Team Providers + +------+ + | Care Dermatology Physician Name | Role | Phone | + +------+ + | Yeison Simms MD | PCP | Unavailable | + +------+ + Reason for Visit + + + | Reason | Comments | + + + | Refill Request | refill on Ceres | + + + Encounter Details +--------+--------+ + + + | Date | Type | Department | Care Team | Description | +--------+--------+ + + + | 08/27/ | Refill | Neurosurgery at | Sam Pedroza MD | Refill Request | | 2007 | | [facility] [address] | [address] | (refill on Ceres) | | | | Ave Mailcode: CH8N | [place], [place] | | | | | [facility] | [address] | | | | | and Healing, | [phone] | | | | | [facility] | | | | | | Floor [place], [place] | | | | | | [address] | | | | | | [phone] | | | +--------+--------+ + + + [...]
--- OUTSIDE RECORDS SUMMARY | ~2019-12-04 | XMS | Encounter Summary ---
Demographics + + + | Address | [address] | | | [place] [address] | + + + | Home Phone [...] + + | Author | [place] [employer] Science [facility] | + + + | Organization | [facility] Betyah Science [facility] | [...] Team Providers + +------+ + | Care Firesetter Name | Role | Phone | + [...] | | | Ave Mailcode: CH8N | [place], [place] | | | | | [facility] | [address] | | | | | and Healing, | [phone] | | | | | [facility] | | | | | | Floor [place], [place] | | | | | | [address] | | | | | | [phone] | | | +--------+ + + + [...]
--- OUTSIDE RECORDS SUMMARY | ~2019-12-04 | XMS | Encounter Summary ---
Demographics + + + | Address | [address] | | | [place] [address] | + + + | Home Phone [...] | Organization | [facility] | | | and [place] [...] Providers + +------+ + | Care Plastic Maker Name | Role | Phone | + +------+ + PCP | Unavailable | + +------+ + Encounter Details +--------+ + + + + | Date | Type | Department | Care Team | Description | +--------+ + + + + | 05/18/ | Hospital | [facility] | | | | 1991 | Encounter | [facility] | | | | | | [facility]ALTH [facility] [address] | | | | | | [place], | | | | | | [place] [address] | | | | | | [phone] | | | +--------+ + + + [...]
--- OUTSIDE RECORDS SUMMARY | ~2019-12-04 | XMS | Encounter Summary ---
Demographics + + + | Address | [address] | | | [place] [address] | + + + | Home Phone [...] | Organization | [facility] | | [...] Team Providers + +------+ + | Care Padded Products Finisher Name | Role | Phone | + +------+ + PCP | Unavailable | + +------+ + Encounter Details +--------+ + + + + | Date | Type | Department | Care Team | Description | +--------+ + + + + | 08/16/ | Hospital | [facility] | | | | 1990 | Encounter | MED CTR EMERG[facility]Y | | | | | | CENTER [address] | | | | | | [place] | | | | | | [address] | | | | | | [phone] | | | +--------+ + + + [...]
--- OUTSIDE RECORDS SUMMARY | ~2019-12-04 | XMS | Encounter Summary ---
Demographics + + + | Address | [address] | | | [place] [address] | + + + | Home Phone [...] + + | Author | [place] [employer] Science [facility] | + + + | Organization | [facility] W[employer] Science [facility] | + + [...] Providers + +------+ + | Care Collar Trimmer Name | Role | Phone | [...] | Headache | | 2005 | | [place]/Ophthalmol | MD Jordin | | | | | leon at [facility] [address] | | | | | | Gianluca Kirk Mailcode: | | | | | | CH11P [facility] | | | | | | Health and Healing, | | | | | | Building | | | | | | Floor [place], [place] | | | | | | [address] | | | | | | [phone] | | | +--------+ + + + [...]
--- OUTSIDE RECORDS SUMMARY | ~2019-12-04 | XMS | Encounter Summary ---
Demographics + + + | Address | [address] | | | [place] [address] | + + + | Home Phone [...] + + + | Author | [place] [employer] Science [facility] | + + + | Organization | [facility] [employer] [facility] [...] Team Providers + +------+ + | Care Ore Miner Blasting Name | Role | Phone | + [...] Refill Request | | 2012 | | [place]/Ophthalmol | MD Perry | | | | | leon at [facility] [address] | | | | | | Gianluca Perezkiran Mailcode: | | | | | | CH11P [facility] | | | | | | Health and Healing, | | | | | | [facility] | | | | | | Floor [place], [place] | | | | | | [address] | | | | | | [phone] | | | +--------+--------+ + + + [...]
--- OUTSIDE RECORDS SUMMARY | ~2019-12-04 | XMS | Encounter Summary ---
Demographics + + + | Address | [address] | | | [place] [address] | + + + | Home Phone [...] + + | Author | [place] [employer] Science [facility] | + + + | Organization | [facility] [employer] [facility] | + [...] Team Providers + +------+ + | Care Javascript Ui Developer Name | Role | Phone | + +------+ + | Yeison Simms MD | PCP | Unavailable | + +------+ + Encounter Details +--------+--------+ + + + | Date | Type | Department | Care Team | Description | +--------+--------+ + + + | 09/06/ | Refill | Neurosurgery at | Kiki Rosen, | | | 2007 | | [facility] [address] | FLORA JOSE | | | | | [place] Mailcode: CH8N | Neurosurgery [address] | | | | | [facility] | [place] [address] | | | | | and Healing, | [facility] [place] | | | | | Building | [address] | | | | | Floor [place], [place] | | | | | | [address] | | | | | | [phone] | | | +--------+--------+ + + + [...]
--- OUTSIDE RECORDS SUMMARY | ~2019-12-04 | XMS | Encounter Summary ---
Demographics + + + | Address | [address] | | | [place] [address] | + + + | Home Phone [...] + | Organization | [facility] | | | and [...] Team Providers + +------+ + | Care Custodial Maintenance Worker Name | Role | Phone | + +------+ + PCP | Unavailable | + +------+ + Encounter Details +--------+ + + + + | Date | Type | Department | Care Team | Description | +--------+ + + + + | 10/27/ | Hospital | [facility] | | | | 1990 | Encounter | MED CTR EMERGENCY | | | | | | CENTER [address] | | | | | | [place] | | | | | | [address] | | | | | | [phone] | | | +--------+ + + + [...]
--- OUTSIDE RECORDS SUMMARY | ~2019-12-04 | XMS | Encounter Summary ---
Demographics + + + | Address | [address] | | | [place] [address] | + + + | Home Phone [...] + + + | Author | [place] [email or web address] Science [facility] | + + + | Organization | [facility] [employer]ole[employer] Science [facility] | + [...] Team Providers + +------+ + | Care Prep Person Name | Role | Phone | + [...] Cerebri; | | 2006 | Visit | [facility] | Cassi Clark | Pain in or Around | | | | Oculoplastics at | [place], [place] | Eye | | | | [place] [address] | [address] | | | | | [address] | [phone] | | | | | Mailcode: PATTI | | | | | | [place] [address] | | | | | | [phone] | | | +--------+---------+ + + + [...] to be seen here or by an aircraft structure mechanic in [facility], but she says she does not have transportation. I will call in Vicodin #20, pt to call i mmediately if there is any worsening. Pt states lucho lump in left alevism is gone. No pain. Pt. Had cough [...]
--- OUTSIDE RECORDS SUMMARY | ~2019-12-04 | XMS | Encounter Summary ---
Demographics + + + | Address | [address] | | | [place] [address] | + + + | Home Phone [...] + + + | Author | [place] [employer] Science [facility] | + + + | Organization | [facility] [employer]out Science [facility] [...] Providers + +------+ + | Care Manager Clinical Applications Name | Role | Phone | + [...] | | | Ave Mailcode: CH8N | [place], [place] | | | | | [facility] | [address] | | | | | and Healing, | [phone] | | | | | [facility] | | | | | | Floor [facility] [place] | | | | | | [address] | | | | | | [phone] | | | +--------+ + + + [...]
--- OUTSIDE RECORDS SUMMARY | ~2019-12-04 | XMS | Encounter Summary ---
Demographics + + + | Address | [address] | | | [place] [address] | + + + | Home Phone [...] + + + | Author | [place] [employer]is [employer] Science [facility] | + + + | Organization | [facility] [employer] Science [facility] | [...] Providers + +------+ + | Care Marine Engineering Professor Name | Role | Phone [...] Cerebri | | 2006 | Visit | [place] | | | | | | Photography at | | | | | | [facility] [address] | | | | | | [place] | | | | | | Mailcode: Simon | | | | | | [place] [address] | | | | | | [phone] | | | +--------+---------+ + + + [...] encounter Jimena Obrien - 11/30/2006 3:16 PM Mattpilar Au was seen in the [facility] [place] Photography/Ultrasound Department today, 11/30/2006, for ultrasound OU [...]
--- OUTSIDE RECORDS SUMMARY | ~2019-12-04 | XMS | Encounter Summary ---
Demographics + + + | Address | [address] | | | [place] [address] | + + + | Home Phone [...] + + + | Author | [place] Hantele Science [facility] | + + + | Organization | [facility] Prestiamoci Science [facility] [...] Team Providers + +------+ + | Care Bottling Line Attendant Name | Role | Phone | + +------+ + | Brenden Benavides MD | PCP | | + +------+ + Encounter Details +--------+ + + + + | Date | Type | Department | Care Team | Description | +--------+ + + + + | 02/22/ | Telephone | [facility] | Brad Currie MD | | | 2006 | | [place] | | | | | | Neuro-Ophthalmology | | | | | | [address] [facility] | | | | | | Mailcode: PATTI | | | | | | [place] [address] | | | | | | [phone] | | | +--------+ + + + [...]
--- OUTSIDE RECORDS SUMMARY | ~2019-12-04 | XMS | Encounter Summary ---
Demographics + + + | Address | [address] | | | [place] [address] | + + + | Home Phone [...] + + + | Author | [place] Bag Borrow or Steal Science [facility] | + + + | Organization | [facility] SensorTran Science [facility] [...] Team Providers + +------+ + | Care Pump Operator Name | Role | Phone [...] MD | | | 2012 | | [facility] [address] | | | | | | [place] Mailcode: CH8N | | | | | | [facility] | | | | | | and Healing, | | | | | | Building [address]th | | | | | | Floor [place], [place] | | | | | | [address] | | | | | | [phone] | | | +--------+ + + + [...]
--- OUTSIDE RECORDS SUMMARY | ~2019-12-04 | XMS | Encounter Summary ---
Demographics + + + | Address | [address] | | | [place] [address] | + + + | Home Phone [...] + + + | Author | [place] Talk[employer] Science [facility] | + + + | Organization | [facility] AVM Biotechnology Science [facility] [...] Team Providers + +------+ + | Care Routing Equipment Tender Name | Role | Phone [...] Cerebri | | 2007 | Visit | [facility] [address] | [address] | (Primary Dx) | | | | Ave Mailcode: CH8N | [place], [place] | | | | | [facility] | [address] | | | | | and Healing, | [phone] | | | | | [facility] | | | | | | Floor [place], [place] | | | | | | [address] | | | | | | [phone] | | | +--------+---------+ + + + [...]
--- OUTSIDE RECORDS SUMMARY | ~2019-12-04 | XMS | Encounter Summary ---
Demographics + + + | Address | [address] | | | [place] [address] | + + + | Home Phone [...] + + + | Author | [place] [employer] [facility] | + + + | Organization | Counts Include [address] [facility] [employer]er [employer] Science [facility] | + [...] + +------+ + | Care Occupational Health Specialist Name | Role | Phone | + +------+ + | Brenden Benavides MD | PCP | | + +------+ + Encounter Details +--------+ + + + + | Date | Type | Department | Care Team | Description | +--------+ + + + + | 02/23/ | Telephone | [facility] | Brad Currie MD | | | 2006 | | [place] | | | | | | Neuro-Ophthalmology | | | | | | [address] [facility] | | | | | | Mailcode: PATTI | | | | | | [place] [address] | | | | | | [phone] | | | +--------+ + + + [...]
--- OUTSIDE RECORDS SUMMARY | ~2019-12-04 | XMS | Encounter Summary ---
Demographics + + + | Address | [address] | | | [place] [address] | + + + | Home Phone [...] + + + | Author | [place] Shahab P. Tabatabai, Broker Science [facility] | + + + | Organization | [facility] Kout Science [facility] [...] Providers + +------+ + | Care Egg Candler Name | Role | Phone | + [...] Cerebri | | 2006 | Visit | [place] | | (Primary Dx) | | | | Neuro-Ophthalmology | | | | | | [address] [facility] | | | | | | Mailcode: CE | | | | | | [place] [address] | | | | | | [phone] | | | +--------+---------+ + + + [...] Referred by: CASIMIRO PAYTON MD [address] [place] [address] Symptoms: She has not been taking her [...] Brad Currie MD Neuro-Ophthalmology and Cerebrovascular Disease Ortho Rn of Ophthalmology, Neurology, and Neurosurgery documented in [...]
--- OUTSIDE RECORDS SUMMARY | ~2019-12-04 | XMS | Encounter Summary ---
Demographics + + + | Address | [address] | | | [place] [address] | + + + | Home Phone [...] + + + | Author | [place] [employer] Science [facility] | + + + | Organization | [facility] Bellstrike Science [facility] | [...] Team Providers + +------+ + | Care Lamina Searcher Name | Role | Phone | + [...] [address] | | | | | | [facility] | | | | | | [place], [place] | | | | | | [address] | | | | | | [phone] | | | +--------+ + + + [...]
--- OUTSIDE RECORDS SUMMARY | ~2019-12-04 | XMS | Encounter Summary ---
Demographics + + + | Address | [address] | | | [place] [address] | + + + | Home Phone [...] | Organization | [facility] | | | and [place] [...] Providers + +------+ + | Care Top Lift Trimmer Name | Role | Phone | + +------+ + PCP | Unavailable | + +------+ + Encounter Details +--------+ + + + + | Date | Type | Department | Care Team | Description | +--------+ + + + + | 09/03/ | Hospital | [facility] | | | | 1991 | Encounter | [facility] | | | | | | HEALTH [facility] [address] | | | | | | [place], | | | | | | [place] [address] | | | | | | [phone] | | | +--------+ + + + [...]
--- OUTSIDE RECORDS SUMMARY | ~2019-12-04 | XMS | Encounter Summary ---
Demographics + + + | Address | [address] | | | [place] [address] | + + + | Home Phone [...] | Organization | [facility] | [...] Team Providers + +------+ + | Care Deblocker Name | Role | Phone | + +------+ + PCP | Unavailable | + +------+ + Encounter Details +--------+ + + + + | Date | Type | Department | Care Team | Description | +--------+ + + + + | 08/16/ | Hospital | [facility] | | | | 1990 | Encounter | MED CTR EMERGENCY | | | | | | CENTER [address] | | | | | | [place] | | | | | | [address] | | | | | | [phone] | | | +--------+ + + + [...]
--- OUTSIDE RECORDS SUMMARY | ~2019-12-04 | XMS | Encounter Summary ---
Demographics + + + | Address | [address] | | | [place] [address] | + + + | Home Phone [...] + + + | Author | [place] [employer] Science [facility] | + + + | Organization | [facility] LiveMinutes Science [facility] | + + + | Address | Unknown | + + + | Phone | Unavailable | + + + Support + + +---------+ + | Name | Relationship | Address | Phone | + + +---------+ + | Ruby Au | ECON | Unknown | | + + +---------+ + Care Team Providers + +------+ + | Care Major League Baseball Umpire Name | Role | Phone | + +------+ + | Brenden Benavides MD | PCP | | + +------+ + Encounter Details +--------+ + + + + | Date | Type | Department | Care Team | Description | +--------+ + + + + | 02/23/ | Telephone | [facility] | Brad Currie MD | | | 2006 | | [place] | | | | | | Neuro-Ophthalmology | | | | | | [address] [facility] | | | | | | Mailcode: PATTI | | | | | | [place] [address] | | | | | | [phone] | | | +--------+ + + + [...]
--- OUTSIDE RECORDS SUMMARY | ~2019-12-04 | XMS | Clinical Summary ---
Demographics + + + | Address | [address] | | | [place] [address] | + + + | Home Phone [...] | Organization | [facility] | | [...] Team Providers + +------+ + | Care Flavorings Compounder Name | Role | Phone | [...] +---------+--------+ | [place] | MEDICA | [id number] | 11/09/ | [phone] | | Medica | | | [place] | | 2018-P | 2 | | id | | | PLUS | | resent | | | | + +--------+ +--------+ +---------+--------+ | [facility] | IHS | [id number] | 11/08/ | | | Indemn | [...] | 1975 | [phone] | [place] [address] | | | rene | | | 5 (Home) | | + +--------+ +--------+ + + Advance Directives + + + + + | Type | Date Recorded | Patient | Explanation | | | | Rubber Compounder Supervisor | | + + + + + | Power of | | | | | Substation Operator Chief | | | | + + + + + | Advance | | | | | Directive | | | | + + + + +
--- OUTSIDE RECORDS SUMMARY | ~2019-12-04 | XMS | Encounter Summary ---
Demographics + + + | Address | [address] | | | [place] [address] | + + + | Home Phone [...] + + + | Author | [place] Daily [employer] Science [facility] | + + + | Organization | [facility] PoolCubes Science [facility] [...] Team Providers + +------+ + | Care Voice Over Announcer Name | Role | Phone | + [...] Cerebri | | 2007 | Visit | [facility] [address] | [address] | (Primary Dx) | | | | Ave Mailcode: CH8N | [place], [place] | | | | | [facility] | [address] | | | | | and Healing, | [phone] | | | | | [facility] | | | | | | Floor [place], [place] | | | | | | [address] | | | | | | [phone] | | | +--------+---------+ + + + [...]
--- OUTSIDE RECORDS SUMMARY | ~2019-12-04 | XMS | Encounter Summary ---
Demographics + + + | Address | [address] | | | [place] [address] | + + + | Home Phone [...] + + + | Author | [place] [employer] Science [facility] | + + + | Organization | [facility] Blipify Science [facility] | [...] Providers + +------+ + | Care Television Specialist Name | Role | Phone | [...] [address] | | | | | | [place], [place] | | | | | | [address] | | | +--------+ + + + [...]
--- OUTSIDE RECORDS SUMMARY | ~2019-12-04 | XMS | Encounter Summary ---
Demographics + + + | Address | [address] | | | [place] [address] | + + + | Home Phone [...] + + | Author | [place] [employer] [facility] | + + + | Organization | [facility] [...] Team Providers + +------+ + | Care Larry Car Operator Name | Role | Phone | [...] | | | Ave Mailcode: CH8N | [place], [place] | | | | | [facility] | [address] | | | | | and [place], | [phone] | | | | | [facility] | | | | | | Floor [place], [place] | | | | | | [address] | | | | | | [phone] | | | +--------+ + + + [...]
--- OUTSIDE RECORDS SUMMARY | ~2019-12-04 | XMS | Encounter Summary ---
Demographics + + + | Address | [address] | | | [place] [address] | + + + | Home Phone [...] + + | Author | [place] [employer] [facility] | + + + | Organization | [facility] [employer] [facility] | + [...] Team Providers + +------+ + | Care Tinsel Machine Operator Name | Role | Phone [...] Cerebri | | 2007 | Visit | [facility] [address] | [address] | (Primary Dx) | | | | Ave Mailcode: CH8N | [place], [place] | | | | | [facility] | [address] | | | | | and Healing, | [phone] | | | | | [facility] | | | | | | Floor [place], [place] | | | | | | [address] | | | | | | [phone] | | | +--------+---------+ + + + [...]
--- OUTSIDE RECORDS SUMMARY | ~2019-12-04 | XMS | Encounter Summary ---
Demographics + + + | Address | [address] | | | [place] [address] | + + + | Home Phone [...] + + + | Author | [place] [employer] Science [facility] | + + + | Organization | [facility] [employer] [facility] [...] Team Providers + +------+ + | Care Architecture Faculty Member Name | Role | Phone | [...] | | | | | | | [facility] | | | | | | | Hospital | | | | | | | [place], [place] | | | | | | | [address] | | | | | | | Phone: | | | | | | | [phone] | | | | | | | Fax: | | | | | | | [phone] | +--------+--------+ + + + + Encounter Details +--------+ + + + + | Date | Type | Department | Care Team | Description | +--------+ + + + + | 05/07/ | Hospital | [facility] [address] | Windy [place], | | | 2007 | Encounter | [address] | MD [place] | | | | | 11B [facility] | MD Holden,PhD | | | | | [place] | | | | | | [address] | | | | | | [phone] | | | +--------+ + + + [...] Dennis, | | | | | | M.D.Grief Counselor surgeon: . | | | | | [...] | | | | | cervical region, STATELESS and | | | | | | [...] | | | | | | vein with6-East [place]orese Envoy | | | | | | [...] artery. | | | | | | V8Ootubx Berenstein | | | | | | [...] | | | | | with a 6-[place]orese Envoy | | | | | | [...]
--- OUTSIDE RECORDS SUMMARY | ~2019-12-04 | XMS | Encounter Summary ---
Demographics + + + | Address | [address] | | | [place] [address] | + + + | Home Phone [...] + + + | Author | [place] [employer] [facility] | + + + | Organization | [facility] [...] Providers + +------+ + | Care Tax Assessor Name | Role | Phone | [...] Refill Request | | 2012 | | [place]/Ophthalmol | MD [place] | | | | | leon at [facility] [address] | | | | | | Gianluca Perezkiran Mailcode: | | | | | | CH11P [facility] | | | | | | Health and Healing, | | | | | | [facility] | | | | | | Floor [place], [place] | | | | | | [address] | | | | | | [phone] | | | +--------+--------+ + + + [...]
--- OUTSIDE RECORDS SUMMARY | ~2019-12-04 | XMS | Encounter Summary ---
Demographics + + + | Address | [address] | | | [place] [address] | + + + | Home Phone [...] | Organization | [facility] | [...] Providers + +------+ + | Care Networking Administrator Name | Role | Phone | + +------+ + PCP | Unavailable | + +------+ + Encounter Details +--------+ + + + + | Date | Type | Department | Care Team | Description | +--------+ + + + + | 11/22/ | Hospital | [facility] | | | | 1995 | Encounter | MED CTR EMERGENCY | | | | | | CENTER [address] | | | | | | [place] | | | | | | [address] | | | | | | [phone] | | | +--------+ + + + [...]
--- OUTSIDE RECORDS SUMMARY | ~2019-12-04 | XMS | Encounter Summary ---
Demographics + + + | Address | [address] | | | [place] [address] | + + + | Home Phone [...] + + + | Author | [place] Ensa [facility] | + + + | Organization | [facility] [employer] [facility] | [...] Providers + +------+ + | Care Director Market Intelligence Name | Role | Phone | [...] Cerebri | | 2006 | Visit | [place] | | (Primary Dx) | | | | Neuro-Ophthalmology | | | | | | [address] [facility] | | | | | | Mailcode: PATTI | | | | | | [place] [address] | | | | | | [phone] | | | +--------+---------+ + + + [...] CASIMIRO PAYTON MD [address] [place] [address] Per [facility] chart note taken this morning by . Symptoms: Patient specific problem noted by patient: transient visual loss HPI: 31 y.o. year old female from [place] : Patient presents with: Transient visual loss [...] negative Pulmonary: negative GI: Problems due to skilled nursing use of tylenol/ibuprofen. : negative Musculoskeletal: negative [...] Brad Currie MD Neuro-Ophthalmology and Cerebrovascular Disease Crusher [employer] M[employer] of Ophthalmology, Neurology, and Neurosurgery documented in [...]
--- OUTSIDE RECORDS SUMMARY | ~2019-12-04 | XMS | Encounter Summary ---
Demographics + + + | Address | [address] | | | [place] [address] | + + + | Home Phone [...] + + + | Author | [place] [employer] [facility] | + + + | Organization | [facility] [employer] [facility] [place] [...] Providers + +------+ + | Care Tennis Ball Cover Cementer Name | Role | Phone | [...] Telephone follow-up | | 2015 | | [place] | [address] | | | | | Neuro-Ophthalmology | [place], [place] | | | | | at [facility] [address] | [address] | | | | | Ave Mailcode: [facility] | [phone] | | | | | [facility] | | | | | | and [place], | | | | | | | | | | | | Floor [place], [place] | | | | | | [address] | | | | | | [phone] | | | +--------+ + + + [...]
--- OUTSIDE RECORDS SUMMARY | ~2019-12-04 | XMS | Encounter Summary ---
Demographics + + + | Address | [address] | | | [place] [address] | + + + | Home Phone [...] + + + | Author | [place] [facility] | + + + | Organization | [facility] | + + + | Address | Unknown | + + + | Phone | Unavailable | + + + Support + + +---------+ + | Name | Relationship | Address | Phone | + + +---------+ + | Ruby Au | ECON | Unknown | | + + +---------+ + Care Team Providers + +------+ + | Care Quality Assurance Supervisor Chassis Name | Role | Phone | + [...] | | | [address] Mailcode: RPB07 | [place], [place] | | | | | [place], [place] | [address] | | | | | [address] | [phone] | | | | | [phone] | | | +--------+ + + + [...]
--- OUTSIDE RECORDS SUMMARY | ~2019-12-04 | XMS | Encounter Summary ---
Demographics + + + | Address | [address] | | | [place] [address] | + + + | Home Phone [...] + + + | Author | [place] [employer] [facility] | + + + | Organization | [facility] | + + [...] Providers + +------+ + | Care Hat Maker Name | Role | Phone | + +------+ + | Brenden Benavides MD | PCP | | + +------+ + Encounter Details +--------+ + + + + | Date | Type | Department | Care Team | Description | +--------+ + + + + | 09/28/ | Documentati | [facility] | Brad Currie MD | | | 2006 | on | [place] | | | | | | Neuro-Ophthalmology | | | | | | [address] | | | | | | Mailcode: PATTI | | | | | | [place] [address] | | | | | | [phone] | | | +--------+ + + + [...]
--- OUTSIDE RECORDS SUMMARY | ~2019-12-04 | XMS | Encounter Summary ---
Demographics + + + | Address | [address] | | | [place] [address] | + + + | Home Phone [...] | Organization | [facility] | [...] Providers + +------+ + | Care Medical Coding Specialist Name | Role | Phone | + +------+ + PCP | Unavailable | + +------+ + Encounter Details +--------+ + + + + | Date | Type | Department | Care Team | Description | +--------+ + + + + | 03/03/ | Emergency | [facility] | Artis Reyes DO | Pain, abdominal, | | 2012 | | MEDICAL CENTER | [address] | unknown etiology | | | | EMERGENCY CENTER | [place], [place] | | | | | [address] [facility] | [address] | | | | | [place], [place] | [phone] | | | | | [address] | | | | | | [phone] | | | +--------+ + + + [...]
--- OUTSIDE RECORDS SUMMARY | ~2019-12-04 | XMS | Encounter Summary ---
Demographics + + + | Address | [address] | | | [place] [address] | + + + | Home Phone [...] + + | Author | [place] [email or web address] [facility] | + + + | Organization | [facility] [email or web address] [facility] | + + + | Address | Unknown | + + + | Phone | Unavailable | + + + Support + + +---------+ + | Name | Relationship | Address | Phone | + + +---------+ + | Ruby Au | ECON | Unknown | | + + +---------+ + Care Team Providers + +------+ + | Care Signing Teacher Name | Role | Phone | [...] | | | Ave Mailcode: CH8N | [place], [place] | | | | | [facility] | [address] | | | | | and Healing, | [phone] | | | | | [facility] | | | | | | Floor [place], [place] | | | | | | [address] | | | | | | [phone] | | | +--------+ + + + [...]
--- OUTSIDE RECORDS SUMMARY | ~2019-12-04 | XMS | Encounter Summary ---
Demographics + + + | Address | [address] | | | [place] [address] | + + + | Home Phone [...] | Organization | [facility] | | | and [...] Providers + +------+ + | Care Service Consultant Name | Role | Phone | + +------+ + PCP | Unavailable | + +------+ + Encounter Details +--------+ + + + + | Date | Type | Department | Care Team | Description | +--------+ + + + + | 06/10/ | Hospital | [facility] | | | | 1991 | Encounter | MED CTR WOMENS | | | | | | HEALTH [address] | | | | | | [place], | | | | | | [place] [address] | | | | | | [phone] | | | +--------+ + + + [...]
--- OUTSIDE RECORDS SUMMARY | ~2019-12-04 | XMS | Encounter Summary ---
Demographics + + + | Address | [address] | | | [place] [address] | + + + | Home Phone [...] + + + | Author | [place] [employer] [facility] | + + + | Organization | [facility] [employer] [facility] [...] Providers + +------+ + | Care Brick And Tile Making Machine Operator Name | Role | [...] Cerebri | | 2007 | Visit | [facility] [address] | [place] | (Primary Dx) | | | | Ave Mailcode: CH8N | Neurosurgery [address] | | | | | [facility] | [address] | | | | | and Healing, | [place], [place] | | | | | Building | [address] | | | | | Floor [place], [place] | | | | | | [address] | | | | | | [phone] | | | +--------+---------+ + + + [...]
--- OUTSIDE RECORDS SUMMARY | ~2019-12-04 | XMS | Encounter Summary ---
Demographics + + + | Address | [address] | | | [place] [address] | + + + | Home Phone [...] | Organization | [facility] | | | and [...] Team Providers + +------+ + | Care Pain Management Nurse Practitioner Name | Role | Phone | + +------+ + PCP | Unavailable | + +------+ + Encounter Details +--------+ + + + + | Date | Type | Department | Care Team | Description | +--------+ + + + + | 08/21/ | Hospital | [facility] | | | | 1991 | Encounter | MED CTR EMERGENCY | | | | | | CENTER [address] | | | | | | [place] | | | | | | [address] | | | | | | [phone] | | | +--------+ + + + [...]
--- OUTSIDE RECORDS SUMMARY | ~2019-12-04 | XMS | Encounter Summary ---
Demographics + + + | Address | [address] | | | [place] [address] | + + + | Home Phone [...] Providers + +------+ + | Care Senior Investigator Name | Role | Phone | + +------+ + PCP | Unavailable | + +------+ + Encounter Details +--------+ + + + + | Date | Type | Department | Care Team | Description | +--------+ + + + + | 03/29/ | Hospital | [facility] | | | | 2006 | Encounter | MED CTR XRAY [address] | | | | | | [address] [place] | | | | | | [place] [address] | | | | | | [phone] | | | +--------+ + + + [...]
--- OUTSIDE RECORDS SUMMARY | ~2019-12-04 | XMS | Encounter Summary ---
Demographics + + + | Address | [address] | | | [place] [address] | [...] + | Organization | [facility] | | | [...] Providers + +------+ + | Care Music Store Manager Name | Role | Phone [...] | PHYSIATRY [address] | [address] | | | | | [place], | [place] | | | | | [place] [address] | [place] [address] | | | | | [phone] | | | +--------+ + + + [...]
--- OUTSIDE RECORDS SUMMARY | ~2019-12-04 | XMS | Encounter Summary ---
Demographics + + + | Address | [address] | | | [place] [address] | + + + | Home Phone [...] + + + | Author | [place] [employer] [facility] | + + + | Organization | [facility] [employer] [facility] | + + + | Address | Unknown | + + + | Phone | Unavailable | + + + Support + + +---------+ + | Name | Relationship | Address | Phone | + + +---------+ + | Ruby Au | ECON | Unknown | | + + +---------+ + Care Team Providers + +------+ + | Care Heavy Equipment Field Mechanic Name | Role | Phone | + +------+ + | Brenden Benavides MD | PCP | | + +------+ + Encounter Details +--------+ + + + + | Date | Type | Department | Care Team | Description | +--------+ + + + + | 01/05/ | Telephone | [facility] | Brad Currie MD | | | 2006 | | [place] | | | | | | Neuro-Ophthalmology | | | | | | [address] [facility] | | | | | | Mailcode: PATTI | | | | | | [place] [address] | | | | | | [phone] | | | +--------+ + + + [...]
--- OUTSIDE RECORDS SUMMARY | ~2019-12-04 | XMS | Encounter Summary ---
Demographics + + + | Address | [address] | | | [place] [address] | + + + | Home Phone [...] + + + | Author | [place] ROOOMERS [facility] | + + + | Organization | [facility] [employer] [facility] | + [...] Team Providers + +------+ + | Care Subway Repair Supervisor Name | Role | Phone | [...] | | | Ave Mailcode: CH8N | [place], [place] | | | | | [facility] | [address] | | | | | and Healing, | [phone] | | | | | [facility] | | | | | | Floor [place], [place] | | | | | | [address] | | | | | | [phone] | | | +--------+ + + + [...]
--- OUTSIDE RECORDS SUMMARY | ~2019-12-04 | XMS | Encounter Summary ---
Demographics + + + | Address | [address] | | | [place] [address] | + + + | Home Phone [...] | [facility] [...] Providers + +------+ + | Care Automobile Assembler Name | Role | Phone | + +------+ + PCP | Unavailable | + +------+ + Encounter Details +--------+ + + + + | Date | Type | Department | Care Team | Description | +--------+ + + + + | 01/27/ | Hospital | [facility] | Marine Oden | | | 2011 - | Encounter | MED CTR EMERGENCY | DO Gaurang Drake | | | | | [address] | [place], [place] | | | 01/28/ | | [place], [place] | [address] | | | 2011 | | [address] | | | | | | [phone] | | | +--------+ + + + [...] Performed At | + + + | [facility] Diagnostic Imaging Department | [facility] | | [address] [facility] | [facility] | | UNENHANCED HEAD CT, [...] COMMUNICATED TO THE ER STAFF BY [facility] RADIOLOG IST ON | | | 01/29/2012 AT 0003 HOURS. Dictated Date/Time: 01/29/2012 09:41 | | | Transcribed Date/Time: 01/29/2012 09:47 Tax Services Specialist: | | | <Electronically Signed by Ivan Smalls MD> 01/29/12 1606 | | + + + + + | Procedure Note | + + | Neal, Rad Conversion - 01/04/2014 4:51 PM [facility] | | Diagnostic Imaging Department [address] [place] [address] [place] | | UNENHANCED HEAD CT, 01/28/2012, 2342 [...] 09:41 | |Transcribed Date/Time: 01/29/2012 09:47 | |Tax Services Specialist: | |<Electronically Signed by Ivan Smalls MD> [...]
--- OUTSIDE RECORDS SUMMARY | ~2019-12-04 | XMS | Encounter Summary ---
Demographics + + + | Address | [address] | | | [place] [address] | + + + | Home Phone [...] + + | Author | [place] [employer] [facility] | + + + | Organization | [facility] [employer] [facility] | [...] Providers + +------+ + | Care Senior Systems Engineer Name | Role | Phone | + +------+ + | Yeison Simms MD | PCP | Unavailable | + +------+ + Encounter Details +--------+ + + + + | Date | Type | Department | Care Team | Description | +--------+ + + + + | 08/23/ | Telephone | Neurosurgery at | Kiki Rosen, | | | 2007 | | [facility] [address] | [place] | | | | | [place] Mailcode: CH8N | Neurosurgery [address] | | | | | [facility] | [address] | | | | | and Healing, | [place], [place] | | | | | [place] [address] | [address] | | | | | Floor [place], [place] | | | | | | [address] | | | | | | [phone] | | | +--------+ + + + [...]
--- OUTSIDE RECORDS SUMMARY | ~2019-12-04 | XMS | Encounter Summary ---
Demographics + + + | Address | [address] | | | [place] [address] | + + + | Home Phone [...] | Organization | [facility] | [...] Providers + +------+ + | Care Registered Vascular Technologist (Rvt) Name | Role | Phone | + +------+ + PCP | Unavailable | + +------+ + Encounter Details +--------+ + + + + | Date | Type | Department | Care Team | Description | +--------+ + + + + | 07/30/ | Hospital | [facility] | | | | 2008 - | Encounter | MED CTR MED ONC | | | | | | [address] | | | | 08/02/ | | [place] [address] | | | | 2008 | | [phone] | | | +--------+ + + + [...]
--- OUTSIDE RECORDS SUMMARY | ~2019-12-04 | XMS | Encounter Summary ---
Demographics + + + | Address | [address] | | | [place] [address] | + + + | Home Phone [...] Organization | [facility] | [...] Team Providers + +------+ + | Care Purchaser Automotive Parts Name | Role | Phone | + +------+ + PCP | Unavailable | + +------+ + Encounter Details +--------+ + + + + | Date | Type | Department | Care Team | Description | +--------+ + + + + | 01/27/ | Hospital | [facility] | Marine Oden | | | 2011 - | Encounter | MED CTR EMERGENCY | DO Gaurang Drake | | | | | [address] | [place], [place] | | | 01/28/ | | [place], [place] | [address] | | | 2011 | | [address] | | | | | | [phone] | | | +--------+ + + + [...] Performed At | + + + | [facility] Diagnostic Imaging Department | [facility] | | [address] [facility] | [facility] | | UNENHANCED HEAD CT, 01/28/2012, | [...] TO THE ER STAFF BY [facility] RADIOLOG IST ON | | | 01/29/2012 AT 0003 HOURS. Dictated Date/Time: 01/29/2012 09:41 | | | Transcribed Date/Time: 01/29/2012 09:47 Glass Or Mirror Inspector: | | | <Electronically Signed by Ivan Smalls MD> 01/29/12 1606 | | + + + + + | Procedure Note | + + | Neal, Rad Conversion - 01/04/2014 4:51 PM [facility] | | Diagnostic Imaging Department [address] [place] [address] [place] | | UNENHANCED HEAD CT, 01/28/2012, 2342 [...] 09:41 | |Transcribed Date/Time: 01/29/2012 09:47 | |Glass Or Mirror Inspector: | |<Electronically Signed by Ivan Smalls MD> [...]
--- OUTSIDE RECORDS SUMMARY | ~2019-12-04 | XMS | Encounter Summary ---
Demographics + + + | Address | [address] | | | [place] [address] | + + + | Home Phone [...] | Organization | [facility] | [...] Providers + +------+ + | Care Events Traffic Controller Name | Role | Phone | + +------+ + PCP | Unavailable | + +------+ + Encounter Details +--------+ + + + + | Date | Type | Department | Care Team | Description | +--------+ + + + + | 04/18/ | Hospital | [facility] | | | | 1991 | Encounter | MED CTR EMERGENCY | | | | | | CENTER [address] | | | | | | [place] | | | | | | [address] | | | | | | [phone] | | | +--------+ + + + [...]
--- OUTSIDE RECORDS SUMMARY | ~2019-12-04 | XMS | Encounter Summary ---
Demographics + + + | Address | [address] | | | [place] [address] | + + + | Home Phone [...] + + + | Author | [place] [employer] [facility] | + + + | Organization | [facility] [employer] [facility] [...] Team Providers + +------+ + | Care Drafting Instructor Name | Role | Phone | [...] | | | | Mailcode: PV01 | [place], [place] | | | | | [facility] | [address] | | | | | [place], [place] | [phone] | | | | | [address] | | | | | | [phone] | | | +--------+ + + + [...]
--- OUTSIDE RECORDS SUMMARY | ~2019-12-04 | XMS | Encounter Summary ---
Demographics + + + | Address | [address] | | | [place] [address] | + + + | Home Phone [...] [facility] | [...] Providers + +------+ + | Care Video Operator Name | Role | Phone | + +------+ + PCP | Unavailable | + +------+ + Encounter Details +--------+ + + + + | Date | Type | Department | Care Team | Description | +--------+ + + + + | 11/04/ | Hospital | [facility] | Unknown, | | | 2004 | Encounter | MED CTR XRAY [address] | MD Sudhakar | | | | | [address] [place] | | | | | | [place] [address] | (Fax) | | | | | [phone] | | | +--------+ + + + [...]
--- OUTSIDE RECORDS SUMMARY | ~2019-12-04 | XMS | Encounter Summary ---
Demographics + + + | Address | [address] | | | [place] [address] | + + + | Home Phone [...] + + | Author | [place] [employer] [facility] | + + + | Organization | [facility] [employer] [facility] [...] Providers + +------+ + | Care Merchandise Flow Associate Name | Role | Phone | [...] Cerebri; | | 2006 | Visit | [place] | Cassi Clark | Pain in or Around | | | | Oculoplastics at | [place], [place] | Eye | | | | [place] [address] [address] | [address] | | | | | [address] | [phone] | | | | | Mailcode: PATTI | | | | | | [place] [address] | | | | | | [phone] | | | +--------+---------+ + + + [...] to be seen here or by an ornamental iron worker helper in [facility], but she says she does not have transportation. I will call in Vicodin #20, pt to call i mmediately if there is any worsening. Pt states lucho lump in left mandaeism is gone. No pain. Pt. Had cough [...]
--- OUTSIDE RECORDS SUMMARY | ~2019-12-04 | XMS | Encounter Summary ---
Demographics + + + | Address | [address] | | | [place] [address] | + + + | Home Phone [...] | [facility] | | [...] Team Providers + +------+ + | Care Framing Specialist Name | Role | Phone | + +------+ + PCP | Unavailable | + +------+ + Encounter Details +--------+ + + + + | Date | Type | Department | Care Team | Description | +--------+ + + + + | 10/20/ | Hospital | [facility] | | | | 1999 | Encounter | MED CTR EMERGENCY | | | | | | CENTER [address] | | | | | | [place] | | | | | | [address] | | | | | | [phone] | | | +--------+ + + + [...]
--- OUTSIDE RECORDS SUMMARY | ~2019-12-04 | XMS | Encounter Summary ---
Demographics + + + | Address | [address] | | | [place] [address] | + + + | Home Phone [...] + + + | Author | [place] [facility] | + + + | Organization | [facility] | + [...] Providers + +------+ + | Care Manager Wastewater Name | Role | Phone | + [...] Neurosurgery [address] | | | | | [facility] | [address] | | | | | and Healing, | [place], [place] | | | | | [facility] | [address] | | | | | Floor [place], [place] | | | | | | [address] | | | | | | [phone] | | | +--------+ + + + [...]
--- OUTSIDE RECORDS SUMMARY | ~2019-12-04 | XMS | Encounter Summary ---
Demographics + + + | Address | [address] | | | [place] [address] | + + + | Home Phone [...] + + + | Author | [place] [facility] [facility] | + + + | Organization | [facility] [employer] [facility] | + + [...] Providers + +------+ + | Care Business Manager College Or University Name | Role | Phone | + [...] Refill Request | | 2006 | | [place] | [address] | | | | | Oculoplastics at | [address] [place], [place] | | | | | [address] | [address] | | | | | [address] | | | | | | Mailcode: CE | | | | | | [place] [address] | | | | | | [phone] | | | +--------+ + + + [...]
--- OUTSIDE RECORDS SUMMARY | ~2019-12-04 | XMS | Encounter Summary ---
Demographics + + + | Address | [address] | | | [place] [address] | + + + | Home Phone [...] + + + | Author | [place] [employer] [facility] | + + + | Organization | [facility] | + + + | Address | Unknown | + + + | Phone | Unavailable | + + + Support + + +---------+ + | Name | Relationship | Address | Phone | + + +---------+ + | Ruby Au | ECON | Unknown | | + + +---------+ + Care Team Providers + +------+ + | Care Geoscience Laboratory Technician Name | Role | Phone | + +------+ + | Dennis Maddox | PCP | | + +------+ + Encounter Details +--------+ + + + + | Date | Type | Department | Care Team | Description | +--------+ + + + + | 02/28/ | Emergency | [facility] | | | | 2013 - | | Department [address] | | | | | [address] | | | | 03/01/ | | [facility] | | | | 2013 | | [place], [place] | | | | | | [address] | | | | | | [phone] | | | +--------+ + + + [...]
--- OUTSIDE RECORDS SUMMARY | ~2019-12-04 | XMS | Clinical Summary ---
Demographics + + + | Address | [address] | | | [place] [address] | + + + | Home Phone [...] Providers + +------+ + | Care Fiber Optics Supervisor Name | Role | Phone | + +------+ + | Dennis Maddox | PCP | | + +------+ + Source Comments REBECA is fully live on both [facility] Ambulatory and [facility] InPatient.[facility] Allergies + + + + + [...] | | | + +--------+ +--------+-------+---------+--------+ | TEST AUTOMATION ARCHITECT MEDICAID | TEST AUTOMATION ARCHITECT | [id number] | 11/28/19 | | | [...] | 1975 | [phone] | [place] [address] | | | rene | | | 0 (Home) | | + +--------+ +--------+ + + Advance Directives + + + + + | Type | Date Recorded | Patient | Explanation | | | | Deputy County Counsel | | + + + + + | Advance | | | | | Directives and | | | | | Living Will | | | | + + + + + | Power of | | | | | Nurse Plastics | | | | + + + [...]
--- OUTSIDE RECORDS SUMMARY | ~2019-12-04 | XMS | Encounter Summary ---
Demographics + + + | Address | [address] | | | [place] [address] | + + + | Home Phone [...] + | Organization | [facility] | | [...] Team Providers + +------+ + | Care Junior Web Designer Name | Role | Phone | + +------+ + PCP | Unavailable | + +------+ + Encounter Details +--------+ + + + + | Date | Type | Department | Care Team | Description | +--------+ + + + + | 09/03/ | Hospital | [facility] | | | | 1991 | Encounter | MED CTR WOMENS | | | | | | HEALTH SV [address] | | | | | | [place], | | | | | | [place] [address] | | | | | | [phone] | | | +--------+ + + + [...]
--- OUTSIDE RECORDS SUMMARY | ~2019-12-04 | XMS | Encounter Summary ---
Demographics + + + | Address | [address] | | | [place] [address] | + + + | Home Phone [...] + + + | Author | [place] [employer] [facility] | + + + | Organization | [facility] | [...] Providers + +------+ + | Care Clinical Marketing Manager Name | Role | Phone [...] Jt Yung | | | | | [address] Mailcode:OP14B | [place], | | | | | [place] | [place] [address] | | | | | [place], [place] | | | | | | [address] | | | | | | [phone] | | | +--------+ + + + [...]
--- OUTSIDE RECORDS SUMMARY | ~2019-12-04 | XMS | Encounter Summary ---
Demographics + + + | Address | [address] | | | [place] [address] | + + + | Home Phone [...] + + + | Author | [place] [employer] [facility] | + + + | Organization | [facility] [employer] Business [employer] [facility] [...] Team Providers + +------+ + | Care Barrel Ribs Solderer Name | Role | Phone | [...] Care Coordination | | 2018 | | [place] | [address] | | | | | Neuro-Ophthalmology | [facility] [place] | | | | | at [facility] [address] | [address] | | | | | Ave Mailcode: CH3G | [phone] | | | | | [facility] | | | | | | and Healing, | | | | | | Building | | | | | | Floor [place], [place] | | | | | | [address] | | | | | | [phone] | | | +--------+ + + + [...]
--- OUTSIDE RECORDS SUMMARY | ~2019-12-04 | XMS | Encounter Summary ---
Demographics + + + | Address | [address] | | | [place] [address] | + + + | Home Phone [...] + + | Author | [facility] | + + + | Organization | [facility] [facility] | [...] Team Providers + +------+ + | Care Linen Sorter Name | Role | Phone | + +------+ + | Yeison Simms MD | PCP | Unavailable | + +------+ + Encounter Details +--------+ + + + + | Date | Type | Department | Care Team | Description | +--------+ + + + + | 12/24/ | Telephone | Neurosurgery at | Kiki Rosen, | | | 2008 | | [facility] [address] | [place] | | | | | [place] Mailcode: CH8N | Neurosurgery [address] | | | | | [facility] | [address] | | | | | and Healing, | [place], [place] | | | | | [place] [address] | [address] | | | | | Floor [place], [place] | | | | | | [address] | | | | | | [phone] | | | +--------+ + + + [...]
--- OUTSIDE RECORDS SUMMARY | ~2019-12-04 | XMS | Encounter Summary ---
Demographics + + + | Address | [address] | | | [place] [address] | + + + | Home Phone [...] | Organization | [facility] | [...] Team Providers + +------+ + | Care Cafe Site Attendant Name | Role | Phone | + +------+ + PCP | Unavailable | + +------+ + Encounter Details +--------+ + + + + | Date | Type | Department | Care Team | Description | +--------+ + + + + | 07/21/ | Hospital | [facility] | | | | 1990 | Encounter | MED CTR EMERGENCY | | | | | | CENTER [address] | | | | | | [place] | | | | | | [address] | | | | | | [phone] | | | +--------+ + + + [...]
--- OUTSIDE RECORDS SUMMARY | ~2019-12-04 | XMS | Encounter Summary ---
Demographics + + + | Address | [address] | | | [place] [address] | + + + | Home Phone [...] + + + | Author | [place] [employer] [facility] | + + + | Organization | [facility] [employer]IXE[employer] [facility] | + + [...] Providers + +------+ + | Care Personnel Adviser Name | Role | Phone | [...] | | | | | | [address] [place], [place] | | | | | | [address] | | | | | | [phone] | | | +--------+ + + + [...]
--- OUTSIDE RECORDS SUMMARY | ~2019-12-04 | XMS | Encounter Summary ---
Demographics + + + | Address | [address] | | | [place] [address] | + + + | Home Phone [...] + + + | Author | [place] [employer] [facility] | + + + | Organization | [facility] [employer] [facility] | + [...] Team Providers + +------+ + | Care Houseperson Name | Role | Phone | + +------+ + | Yeison Simms MD | PCP | Unavailable | + +------+ + Encounter Details +--------+--------+ + + + | Date | Type | Department | Care Team | Description | +--------+--------+ + + + | 09/06/ | Refill | Neurosurgery at | Kiki Rosen, | | | 2007 | | [facility] [address] | [place] | | | | | [place] Mailcode: CH8N | Neurosurgery [address] | | | | | [facility] | [address] | | | | | and Healing, | [facility] [place] | | | | | Building | [address] | | | | | Floor [place], [place] | | | | | | [address] | | | | | | [phone] | | | +--------+--------+ + + + [...]
--- OUTSIDE RECORDS SUMMARY | ~2019-12-04 | XMS | Encounter Summary ---
Demographics + + + | Address | [address] | | | [place] [address] | + + + | Home Phone [...] + + + | Author | [place] [employer] [facility] | + + + | Organization | [facility] [employer] [facility] | + + [...] + +------+ + | Care Supervisor Instrument Repair Name | Role | Phone | + [...] | | | Ave Mailcode: CH8N | [place], [place] | | | | | [facility] | [address] | | | | | and Healing, | [phone] | | | | | [facility] | | | | | | Floor [place], [place] | | | | | | [address] | | | | | | [phone] | | | +--------+ + + + [...]
--- OUTSIDE RECORDS SUMMARY | ~2019-12-04 | XMS | Encounter Summary ---
Demographics + + + | Address | [address] | | | [place] [address] | + + + | Home Phone [...] + + + | Author | [place] [employer] [facility] | + + + | Organization | [facility] [...] Providers + +------+ + | Care Mobile Patrol Officer Name | Role | Phone | [...] | | | Ave Mailcode: CH8N | [place], [place] | | | | | [facility] | [address] | | | | | and Healing, | [phone] | | | | | [facility] | | | | | | Floor [facility] [place] | | | | | | [address] | | | | | | [phone] | | | +--------+ + + + [...]
--- OUTSIDE RECORDS SUMMARY | ~2019-12-04 | XMS | Clinical Summary ---
Demographics + + + | Address | [address] | | | [place] [address] | + + + | Home Phone [...] Organization | [facility] | [...] Team Providers + +------+ + | Care Torpedo Man Name | Role | Phone | [...] +---------+--------+ | MEDICAID [place] | MEDICA | [id number] | 11/09/ | [phone] | | Medica | | | ID [place] | | 2018-P | 2 | | id | | | PLUS | | resent | | | | + +--------+ +--------+ +---------+--------+ | [facility] | IHS | [id number] | 11/08/ | | | Indemn | [...] | 1975 | [phone] | [place] [address] | | | rene | | | 5 (Home) | | + +--------+ +--------+ + + Advance Directives + + + + + | Type | Date Recorded | Patient | Explanation | | | | Extractions Technician | | + + + + + | Power of | | | | | Accounting Machine Servicer | | | | + + + + + | Advance | | | | | Directive | | | | + + + + +
--- OUTSIDE RECORDS SUMMARY | ~2019-12-04 | XMS | Encounter Summary ---
Demographics + + + | Address | [address] | | | [place] [address] | + + + | Home Phone [...] + + + | Author | [place] [employer] [facility] | + + + | Organization | [facility] [employer] [facility] | + [...] Team Providers + +------+ + | Care Teleprinter Installer Name | Role | Phone | [...] | | | | | hypertension | [place], [place] | [place], [place] | | | | | Procedures | [address] | [address] | | | | | REQUEST TO | Phone: | Phone: | | | | | SURGERY | [phone] | [phone] | | | | | LEGAL ASSISTANT | Fax: | Fax: | | | | | [place] INSTALL | [phone] | [phone] | | | | | SPINAL | [...] | | | Ave Mailcode: CH8N | [place], [place] | | | | | [facility] | [address] | | | | | and [place], | [phone] | | | | | [facility] | | | | | | Floor [place], [place] | | | | | | [address] | | | | | | [phone] | | | +--------+ + + + [...]
--- OUTSIDE RECORDS SUMMARY | ~2019-12-04 | XMS | Encounter Summary ---
Demographics + + + | Address | [address] | | | [place] [address] | + + + | Home Phone [...] Organization | [facility] [...] Team Providers + +------+ + | Care Indian Blanket Weaver Name | Role | Phone | + +------+ + PCP | Unavailable | + +------+ + Encounter Details +--------+ + + + + | Date | Type | Department | Care Team | Description | +--------+ + + + + | 09/27/ | Hospital | [facility] | | | | 1991 | Encounter | MED CTR WOMENS | | | | | | HEALTH [address] | | | | | | [place], | | | | | | [place] [address] | | | | | | [phone] | | | +--------+ + + + [...]
--- OUTSIDE RECORDS SUMMARY | ~2019-12-04 | XMS | Encounter Summary ---
Demographics + + + | Address | [address] | | | [place] [address] | + + + | Home Phone [...] + + + | Author | [place] [employer] [facility] | + + + | Organization | [facility] [address] [facility] | + [...] Providers + +------+ + | Care Edge Baster Name | Role | Phone | [...] [address] | | | | | | [place] | Ave | | | | | | [address] | [place], [place] | | | | | | [place], | [address] | | | | | | [place] [address] | Phone: | | | | | | Phone: | [phone] | | | | | | [phone] | Fax: | | | | | | Fax: | [phone] | | | | | | [phone] | | +--------+ + + + + + Encounter Details +--------+---------+ + + + | Date | Type | Department | Care Team | Description | +--------+---------+ + + + | 09/17/ | Office | Neurosurgery at | Casimiro Payton MD | Pseudotumor cerebri | | 2010 | Visit | [facility] [address] | [address] | (Primary Dx) | | | | Ave Mailcode: CH8N | [place], [place] | | | | | [facility] | [address] | | | | | and Healing, | [phone] | | | | | [facility] | | | | | | Floor [place], [place] | | | | | | [address] | | | | | | [phone] | | | +--------+---------+ + + + [...] soon. I spent more than 15 minutes [id number] with the patient of which greater than 50% was sp ent counseling the patient regarding the shunt removal, indications and venous sinus stent a ngioplasty. Since her shunt is brent effective now she will need narcotics for headache and he r PCP should manage that. CASIMIRO PAYTON MD NEUROSURGERY [address] Mailcode: Ch8n [facility], 8th [facility] [address] documented in this encou nter Plan of Treatment Not on filedocumented as of this encounter Visit Diagnoses + + | Diagnosis | + + | Pseudotumor cerebri - Primary Benign intracranial hypertension | + + documented in this encounter
--- OUTSIDE RECORDS SUMMARY | ~2019-12-04 | XMS | Encounter Summary ---
Demographics + + + | Address | [address] | | | [place] [address] | + + + | Home Phone [...] + + + | Author | [place] [employer] [facility] | + + + | Organization | [facility] [employer] [facility] | + [...] Providers + +------+ + | Care Bottom Precipitator Operator Name | Role | Phone | [...] Cerebri | | 2007 | Visit | [facility] [address] | [address] | (Primary Dx) | | | | Ave Mailcode: CH8N | [place], [place] | | | | | [facility] | [address] | | | | | and Healing, | [phone] | | | | | [facility] | | | | | | Floor [place], [place] | | | | | | [address] | | | | | | [phone] | | | +--------+---------+ + + + [...] wanted to have LP shunt instead of JUNIOR LOAN PROCESSOR shunt because she d oes not weant [...]
--- OUTSIDE RECORDS SUMMARY | ~2019-12-04 | XMS | Encounter Summary ---
Demographics + + + | Address | [address] | | | [place] [address] | + + + | Home Phone [...] Organization | [facility] | | [...] Team Providers + +------+ + | Care Gunite Nozzle Operator Name | Role | Phone | + +------+ + PCP | Unavailable | + +------+ + Encounter Details +--------+ + + + + | Date | Type | Department | Care Team | Description | +--------+ + + + + | 11/04/ | Hospital | [facility] | Unknown, | | | 2004 | Encounter | MED CTR XRAY [address] | MD Sud[place]ar | | | | | [address] [place] | | | | | | [place] [address] | (Fax) | | | | | [phone] | | | +--------+ + + + [...]
--- OUTSIDE RECORDS SUMMARY | ~2019-12-04 | XMS | Encounter Summary ---
Demographics + + + | Address | [address] | | | [place] [address] | + + + | Home Phone [...] Organization | [facility] | [...] Providers + +------+ + | Care Digital Imaging Specialist Name | Role | Phone | + +------+ + PCP | Unavailable | + +------+ + Encounter Details +--------+ + + + + | Date | Type | Department | Care Team | Description | +--------+ + + + + | 03/29/ | Hospital | [facility] | | | | 2006 | Encounter | MED CTR XRAY [address] | | | | | | [address] | | | | | | [place] [address] | | | | | | [phone] | | | +--------+ + + + [...]
--- OUTSIDE RECORDS SUMMARY | ~2019-12-04 | XMS | Encounter Summary ---
Demographics + + + | Address | [address] | | | [place] [address] | + + + | Home Phone [...] + + + | Author | [place] [employer] [facility] | + + + | Organization | [facility] [facility] | + [...] Team Providers + +------+ + | Care Automation Architect Name | Role | Phone | [...] Cerebri | | 2005 | Visit | [place] | | (Primary Dx) | | | | Neuro-Ophthalmology | | | | | | [address] [facility] | | | | | | Mailcode: PATTI | | | | | | [place] [address] | | | | | | [phone] | | | +--------+---------+ + + + [...] as of this encounter Progress Notes Brad Curire - 10/13/2006 10:32 AM PSTFormatting of this [...] Brad Currie MD Neuro-Ophthalmology and Cerebrovascular Disease Inoculator of Ophthalmology, Neurology, and Neurosurgery documented in [...]
--- OUTSIDE RECORDS SUMMARY | ~2019-12-04 | XMS | Encounter Summary ---
Demographics + + + | Address | [address] | | | [place] [address] | + + + | Home Phone [...] | [facility] | | | [...] Team Providers + +------+ + | Care Chemical Processing Technician Name | Role | Phone | [...] | | | | | | [place] [address] | | | | | | [phone] | | | +--------+ + + + [...]
--- OUTSIDE RECORDS SUMMARY | ~2019-12-04 | XMS | Encounter Summary ---
Demographics + + + | Address | [address] | | | [place] [address] | + + + | Home Phone [...] + + + | Author | [place] [employer] [facility] | + + + | Organization | [facility] [employer] [facility] [...] Team Providers + +------+ + | Care Carcass Washer Name | Role | Phone | [...] Cerebri | | 2006 | Visit | [place] | | (Primary Dx) | | | | Neuro-Ophthalmology | | | | | | [address] [facility] | | | | | | Mailcode: PATTI | | | | | | [place] [address] | | | | | | [phone] | | | +--------+---------+ + + + [...] Referred by: CASIMIRO PAYTON MD [address] [place] [address] Symptoms: Patient feels things are better. Vision [...] Brad Currie MD Neuro-Ophthalmology and Cerebrovascular Disease Sawmill Relief Worker of Ophthalmology, Neurology, and Neurosurgery documented [...]
--- OUTSIDE RECORDS SUMMARY | ~2019-12-04 | XMS | Encounter Summary ---
Demographics + + + | Address | [address] | | | [place] [address] | + + + | Home Phone [...] + + + | Author | [place] [employer] [facility] | + + + | Organization | [facility] [employer] [facility] | + [...] Team Providers + +------+ + | Care Liner Inserter Name | Role | Phone | [...] | | | | | | | [place], [place] | | | | | | | [address] Phone: | | | | | | | [phone] | | | | | | | Fax: | | | | | | | [phone] | +--------+--------+ + + + + Encounter Details +--------+ + + + + | Date | Type | Department | Care Team | Description | +--------+ + + + + | 03/26/ | Procedure | [facility] | | Visual field testing | | 2012 | | [place] [facility] | | | | | | [facility] at [facility] [address] | | | | | | [address] | | | | | | Mailcode: CH11P | | | | | | [facility] | | | | | | and Healing, | | | | | | Building , | | | | | | Floor [place], [place] | | | | | | [address] | | | | | | [phone] | | | +--------+ + + + [...] PDT Annabella Au was seen in the [facility] Department today, 2012, for HVF [...]
--- OUTSIDE RECORDS SUMMARY | ~2019-12-04 | XMS | Encounter Summary ---
Demographics + + + | Address | [address] | | | [place] [address] | + + + | Home Phone [...] + + + | Author | [place] [employer] Science [facility] | + + + | Organization | [facility] [facility] [...] Team Providers + +------+ + | Care Temperature Inspector Name | Role | Phone | + +------+ + | Brenden Benavides MD | PCP | | + +------+ + Encounter Details +--------+ + + + + | Date | Type | Department | Care Team | Description | +--------+ + + + + | 02/22/ | Telephone | [facility] | Hay Hughes MD [address] | | | 2006 | | [place] | [address] | | | | | Oculoplastics at | [place], [place] | | | | | [address] | [address] | | | | | [place] | [phone] | | | | | Mailcode: PATTI | | | | | | [place] [address] | | | | | | [phone] | | | +--------+ + + + [...]
--- OUTSIDE RECORDS SUMMARY | ~2019-12-04 | XMS | Encounter Summary ---
Demographics + + + | Address | [address] | | | [place] [address] | + + + | Home Phone [...] Organization | [facility] | | [...] +------+ + | Care Director Of Retail Operations Name | Role | Phone | + +------+ + PCP | Unavailable | + +------+ + Encounter Details +--------+ + + + + | Date | Type | Department | Care Team | Description | +--------+ + + + + | 07/19/ | Hospital | [facility] | [place], | | | 1990 - | Encounter | MED CTR MED ONC | [address] | | | | | [address] | [place] | | | 07/21/ | | [place] [address] | [address] | | | 1990 | | [phone] | | | +--------+ + + + [...]
--- OUTSIDE RECORDS SUMMARY | ~2019-12-04 | XMS | Encounter Summary ---
Demographics + + + | Address | [address] | | | [place] [address] | + + + | Home Phone [...] | Organization | [facility] | | | [...] Providers + +------+ + | Care Veterinary Laboratory Technician Name | Role | Phone | + +------+ + PCP | Unavailable | + +------+ + Encounter Details +--------+ + + + + | Date | Type | Department | Care Team | Description | +--------+ + + + + | 09/20/ | Hospital | [facility] | | | | 1991 | Encounter | MED CTR WOMENS | | | | | | HEALTH [facility] [address] | | | | | | [place], | | | | | | [place] [address] | | | | | | [phone] | | | +--------+ + + + [...]
--- OUTSIDE RECORDS SUMMARY | ~2019-12-04 | XMS | Encounter Summary ---
Demographics + + + | Address | [address] | | | [place] [address] | + + + | Home Phone [...] | Organization | [facility] | | [...] Providers + +------+ + | Care Mechanical Engineer Name | Role | Phone | + +------+ + PCP | Unavailable | + +------+ + Encounter Details +--------+ + + + + | Date | Type | Department | Care Team | Description | +--------+ + + + + | 07/12/ | Hospital | [facility] | Conversion | | | 2010 | Encounter | [facility] | Transaction, | | | | | EMERGENCY CENTER | Provider Unknown | | | | | [address] | | | | | | [place] | (Fax) | | | | | [address] | | | | | | [phone] | | | +--------+ + + + [...]
--- OUTSIDE RECORDS SUMMARY | ~2019-12-04 | XMS | Encounter Summary ---
Demographics + + + | Address | [address] | | | [place] [address] | + + + | Home Phone [...] + | Organization | [facility] | [...] Team Providers + +------+ + | Care Odd Piece Checker Name | Role | Phone | + +------+ + PCP | Unavailable | + +------+ + Encounter Details +--------+ + + + + | Date | Type | Department | Care Team | Description | +--------+ + + + + | 04/18/ | Hospital | [facility] | | | | 1991 | Encounter | MED CTR EMERGENCY | | | | | | CENTER [address] | | | | | | [place] | | | | | | [address] | | | | | | [phone] | | | +--------+ + + + [...]
--- OUTSIDE RECORDS SUMMARY | ~2019-12-04 | XMS | Encounter Summary ---
Demographics + + + | Address | [address] | | | [place] [address] | + + + | Home Phone [...] + + + | Author | [place] [employer] [facility] | + + + | Organization | [facility] [employer] [facility] | + [...] Team Providers + +------+ + | Care Bomb Squad Officer Name | Role | Phone | [...] Cerebri | | 2006 | Visit | [place] | [address] | (Primary Dx) | | | | Oculoplastics at | [place], [place] | | | | | [address] | [address] | | | | | [place] | [phone] | | | | | Mailcode: PATTI | | | | | | [place] [address] | | | | | | [phone] | | | +--------+---------+ + + + [...]
--- OUTSIDE RECORDS SUMMARY | ~2019-12-04 | XMS | Encounter Summary ---
Demographics + + + | Address | [address] | | | [place] [address] | + + + | Home Phone [...] | Organization | [facility] | | | and [...] Team Providers + +------+ + | Care Researcher Name | Role | Phone | + +------+ + PCP | Unavailable | + +------+ + Encounter Details +--------+ + + + + | Date | Type | Department | Care Team | Description | +--------+ + + + + | 07/06/ | Hospital | [facility] | Mirna Lambert | | | 2007 | Encounter | MED CTR EMERGENCY | Bri Waters MD [address] | | | | | [address] | [facility] | | | | | [place] | [place] [address] | | | | | [address] | [phone] | | | | | [phone] | | | +--------+ + + + [...]
--- OUTSIDE RECORDS SUMMARY | ~2019-12-04 | XMS | Encounter Summary ---
Demographics + + + | Address | [address] | | | [place] [address] | + + + | Home Phone [...] + + + | Author | [place] [employer] [facility] | + + + | Organization | [facility] Local [employer] [facility] [...] Providers + +------+ + | Care Pharmaceutical Operator Name | Role | Phone | [...] CH8N | | | | | | [facility] | | | | | | and Healing, | | | | | | Building 1[address]th | | | | | | Floor [place], [place] | | | | | | [address] | | | | | | [phone] | | | +--------+ + + + [...]
--- OUTSIDE RECORDS SUMMARY | ~2019-12-04 | XMS | Encounter Summary ---
Demographics + + + | Address | [address] | | | [place] [address] | + + + | Home Phone [...] [facility] | [...] Providers + +------+ + | Care Director Social Service Name | Role | Phone | + +------+ + PCP | Unavailable | + +------+ + Encounter Details +--------+ + + + + | Date | Type | Department | Care Team | Description | +--------+ + + + + | 08/03/ | Hospital | [facility] | | | | 1990 | Encounter | MED CTR EMERGENCY | | | | | | CENTER [address] | | | | | | [place] | | | | | | [address] | | | | | | [phone] | | | +--------+ + + + [...]
--- OUTSIDE RECORDS SUMMARY | ~2019-12-04 | XMS | Encounter Summary ---
Demographics + + + | Address | [address] | | | [place] [address] | + + + | Home Phone [...] | Organization | [facility] | | | and [...] Providers + +------+ + | Care Cardiac Technician Name | Role | Phone | + +------+ + PCP | Unavailable | + +------+ + Encounter Details +--------+ + + + + | Date | Type | Department | Care Team | Description | +--------+ + + + + | 05/15/ | Hospital | [facility] | | | | 1991 | Encounter | MED CTR XRAY [address] | | | | | | [place] | | | | | | [place] [address] | | | | | | [phone] | | | +--------+ + + + [...]
--- OUTSIDE RECORDS SUMMARY | ~2019-12-04 | XMS | Encounter Summary ---
Demographics + + + | Address | [address] | | | [place] [address] | + + + | Home Phone [...] Organization | [facility] | [...] Team Providers + +------+ + | Care Arrow Point Attacher Name | Role | Phone | + +------+ + PCP | Unavailable | + +------+ + Encounter Details +--------+ + + + + | Date | Type | Department | Care Team | Description | +--------+ + + + + | 04/21/ | Hospital | [facility] | | | | 1995 | Encounter | MED CTR EMERGENCY | | | | | | CENTER [address] | | | | | | [place] | | | | | | [address] | | | | | | [phone] | | | +--------+ + + + [...]
--- OUTSIDE RECORDS SUMMARY | ~2019-12-04 | XMS | Encounter Summary ---
Demographics + + + | Address | [address] | | | [place] [address] | + + + | Home Phone [...] + + + | Author | [place] [employer] [facility] | + + + | Organization | [facility] [email or web address] [facility] | + [...] Providers + +------+ + | Care Dispatcher Clerk Name | Role | Phone | [...] Papilledema | | 2006 | Visit | [place] | [address] | Associated with | | | | Oculoplastics at | [facility] [place] | Increased | | | | [facility] [address] | [address] | Intracranial | | | | [address] | [phone] | Pressure; Enlarged | | | | 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 Visual Acuity: [facility] RE 20/20-1 LE 20/25-2 NI Pupil: [...]
--- OUTSIDE RECORDS SUMMARY | ~2019-12-04 | XMS | Encounter Summary ---
Demographics + + + | Address | [address] | | | [place] [address] | + + + | Home Phone [...] | Organization | [facility] | [...] Team Providers + +------+ + | Care Bill Of Lading Clerk Name | Role | Phone | + +------+ + PCP | Unavailable | + +------+ + Encounter Details +--------+ + + + + | Date | Type | Department | Care Team | Description | +--------+ + + + + | 10/20/ | Hospital | [facility] | | | | 1999 | Encounter | MED CTR EMERGENCY | | | | | | CENTER [address] | | | | | | [place] | | | | | | [address] | | | | | | [phone] | | | +--------+ + + + [...]
--- OUTSIDE RECORDS SUMMARY | ~2019-12-04 | XMS | Encounter Summary ---
Demographics + + + | Address | [address] | | | [place] [address] | + + + | Home Phone [...] + + + | Author | [place] [employer] [facility] | + + + | Organization | [facility] [employer] [facility] [...] Team Providers + +------+ + | Care Marble Mechanic Helper Name | Role | Phone [...] | Headache | | 2005 | | [place]/Ophthalmol | MD Jordin | | | | | leon at [facility] [address] | | | | | | [address]luc[address] Mailcode: | | | | | | CH11P [facility] | | | | | | Health and Healing, | | | | | | Building | | | | | | Floor [place], [place] | | | | | | [address] | | | | | | [phone] | | | +--------+ + + + [...]
--- OUTSIDE RECORDS SUMMARY | ~2019-12-04 | XMS | Encounter Summary ---
Demographics + + + | Address | [address] | | | [place] [address] | + + + | Home Phone [...] + + | Author | [place] [email or web address] [facility] | + + + | Organization | [facility] [employer]asight [facility] | + + [...] Providers + +------+ + | Care Tool Crib Supervisor Name | Role | Phone | [...] | | | Ave Mailcode: CH8N | [place], [place] | | | | | [facility] | [address] | | | | | and Healing, | [phone] | | | | | [facility] | | | | | | Floor [place], [place] | | | | | | [address] | | | | | | [phone] | | | +--------+ + + + [...]
--- OUTSIDE RECORDS SUMMARY | ~2019-12-04 | XMS | Encounter Summary ---
Demographics + + + | Address | [address] | | | [place] [address] | + + + | Home Phone [...] Organization | [facility] | | | and [...] Team Providers + +------+ + | Care Hospice/Home Health Aide Name | Role | Phone | [...] | | [address] [place] | [place] [address] | | | | | [address] | [phone] | | | | | [phone] | | | +--------+ + + + [...]
--- OUTSIDE RECORDS SUMMARY | ~2019-12-04 | XMS | Encounter Summary ---
Demographics + + + | Address | [address] | | | [place] [address] | + + + | Home Phone [...] | [facility] | | | and [...] Team Providers + +------+ + | Care Search Engine Marketing Specialist Name | Role | Phone | + +------+ + PCP | Unavailable | + +------+ + Encounter Details +--------+ + + + + | Date | Type | Department | Care Team | Description | +--------+ + + + + | 07/10/ | Emergency | [facility] | Perry Flores | Headache; Benign | | 2012 | | MEDICAL CENTER | [place] [address] | intracranial | | | | EMERGENCY CENTER | [address] | hypertension; Back | | | | [address] | [place] [address] | pain | | | | [place], [place] | [phone] | | | | | [address] | | | | | | [phone] | | | +--------+ + + + [...] | + + + | ANNABELLA Waters [facility] CT HEAD WO CONTRAST HISTORY: 37 [...]
--- OUTSIDE RECORDS SUMMARY | ~2019-12-04 | XMS | Encounter Summary ---
Demographics + + + | Address | [address] | | | [place] [address] | + + + | Home Phone [...] + + | Author | [place] [employer] [facility] | + + + | Organization | [facility] [email or web address] [facility] | + [...] Providers + +------+ + | Care Hair Or Beauty Salon Manager Name | Role | Phone | [...] | | | Ave Mailcode: CH8N | [place], [place] | | | | | [facility] | [address] | | | | | and Healing, | [phone] | | | | | [facility] | | | | | | Floor [place], [place] | | | | | | [address] | | | | | | [phone] | | | +--------+ + + + [...]
--- OUTSIDE RECORDS SUMMARY | ~2019-12-04 | XMS | Encounter Summary ---
Demographics + + + | Address | [address] | | | [place] [address] | + + + | Home Phone [...] + + | Author | [place] Contact At Once[employer] [facility] | + + + | Organization | [facility] [employer] [facility] | + [...] Team Providers + +------+ + | Care Secretary To Board Of Commissioners Name | Role | Phone | + [...] | | Ave Mailcode: CH8N | [place], [place] | Encounters | | | | [facility] | [address] | | | | | and [place], | [phone] | | | | | [facility] | | | | | | Floor [place], [place] | | | | | | [address] | | | | | | [phone] | | | +--------+ + + + [...]
--- OUTSIDE RECORDS SUMMARY | ~2019-12-04 | XMS | Encounter Summary ---
Demographics + + + | Address | [address] | | | [place] [address] | + + + | Home Phone [...] + + | Author | [place] Zimbra [facility] | + + + | Organization | [facility] LYYN Science [facility] [...] Providers + +------+ + | Care Computing Machine Operator Name | Role | Phone [...] Visit | Medicine Clinic at | MANAGER OF SELECTION AND ASSESSMENT [address] | Pre-Operative | | | | [facility] 4th Floor [address] | Examination (Primary | | | | [address] | [place], [place] | Dx); Pseudotumor | | | | Mailcode: CH4S | [address] | Cerebri; Encounter | | | | [facility] | | for Long-Term | | | | and Healing, | | (Current) Use of | | | | Building 1,4th Floor | | Anticoagulants | | | | [place], [place] | | | | | | [address] | | | | | | [phone] | | | +--------+---------+ + + + [...] Scanned [facility] [address] [place] [address] [facility],[address] [place] [address] [phone] documented in this encou nter Plan of [...] | + + + + + | [facility] DEPARTMENT OF | [address] [facility] | [place] [address] | | | PATHOLOGY | [address] | | | + + + + + | [facility] DEPARTMENT OF | [address] [facility] | [place] [address] | | | PATHOLOGY | [address] [...] + + + + | [facility] | [address] [facility] | [place] [address] | | | PATHOLOGY | [address] | | | + + + + + | [facility] OF | [address] [facility] | [place] [address] | | | PATHOLOGY | [address] [...] + | [facility] DEPARTMENT OF | [address] [facility] | [place] [address] | | | PATHOLOGY | [address] | | | + + + + + | [facility] DEPARTMENT OF | [address] [facility] | [place] [address] | | | PATHOLOGY | [address] [...] + + + + | [facility] | [address] [facility] | [place] [address] | | | PATHOLOGY | [address] | | | + + + + + | [facility] | [address] [facility] | [place] [address] | | | PATHOLOGY | [address] [...] Performed At | + + + | [id number] Estimated GFR > 60 mL/min/1.73 sq m if non- | [facility] | | [place] [id number] Estimated GFR > 60 mL/min/1.73 sq m if | DEPARTMENT OF | | [place] GFR is estimated using the MDRD equation [...] + + + + | [facility] | [address] | [place] [address] | | | PATHOLOGY | [address] | | | + + + + + | [facility] | [facility] [address] | [place] [address] | | | PATHOLOGY | [address] [...] + + + + | [facility] | [address] [facility] | [place] [address] | | | PATHOLOGY | [address] | | | + + + + + | [facility] | [address] [facility] | [place] [address] | | | PATHOLOGY | [address] | | | + + + + + documented in this encounter Visit Diagnoses + + | Diagnosis | + + | Other specified pre-operative examination - Primary | + + | Pseudotumor cerebri Benign intracranial hypertension | + + | long-term (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
--- OUTSIDE RECORDS SUMMARY | ~2019-12-04 | XMS | Encounter Summary ---
Demographics + + + | Address | [address] | | | [place] [address] | + + + | Home Phone [...] and Services [facility] | | | and Wililamana | + + + | Organization | [facility] | | | and Williamana [...] Providers + +------+ + | Care Hide Shaker Name | Role | Phone | + +------+ + PCP | Unavailable | + +------+ + Encounter Details +--------+ + + + + | Date | Type | Department | Care Team | Description | +--------+ + + + + | 06/20/ | Hospital | [facility] | Yovanny Suazo, | | | 1991 | Encounter | MED CTR WOMENS | MD [address] | | | | | [facility] [address] | [address] | | | | | [place], | [place] [address] | | | | | [place] [address] | [phone] | | | | | [phone] | | | +--------+ + + + [...]
--- OUTSIDE RECORDS SUMMARY | ~2019-12-04 | XMS | Encounter Summary ---
Demographics + + + | Address | [address] | | | [place] [address] | + + + | Home Phone [...] + + + | Author | [place] [employer] [facility] | + + + | Organization | [facility] Nanome[employer] Science [facility] [...] + +------+ + | Care Child Care Team Lead Name | Role | Phone [...] | | | Ave Mailcode: CH8N | [place], [place] | | | | | [facility] | [address] | | | | | and Healing, | [phone] | | | | | | | | | | | Floor [place], [place] | | | | | | [address] | | | | | | [phone] | | | +--------+ + + + [...]
--- OUTSIDE RECORDS SUMMARY | ~2019-12-04 | XMS | Encounter Summary ---
Demographics + + + | Address | [address] | | | [place] [address] | + + + | Home Phone [...] + + + | Author | [place] [employer] [facility] | + + + | Organization | [facility] Red Tricycle [facility] | + [...] [address] | MD [address] | | | | | Yelena Mailcode: CH8N | [place] | | | | | [facility] | Rd [place], [place] | | | | | and Healing, | [address] | | | | | | [phone] | | | | | Floor [place], [place] | | | | | | [address] | | | | | | [phone] | | | +--------+ + + + [...]
--- OUTSIDE RECORDS SUMMARY | ~2019-12-04 | XMS | Encounter Summary ---
Demographics + + + | Address | [address] | | | [place] [address] | + + + | Home Phone [...] + + + | Author | [place] Vusay Science [facility] | + + + | Organization | [facility] Cy[employer] Science [facility] [...] | [address] Mailcode:OP14B | [place], | | | | | [facility] | [place] [address] | | | | | [place], [place] | | | | | | [address] | | | | | | [phone] | | | +--------+ + + + [...]
--- OUTSIDE RECORDS SUMMARY | ~2019-12-04 | XMS | Encounter Summary ---
Demographics + + + | Address | [address] | | | [place] [address] | + + + | Home Phone [...] + + + | Author | [place] [employer] [facility] | + + + | Organization | [facility] | + [...] | | | [address] Mailcode: RPB07 | [place], [place] | | | | | [place], [place] | [address] | | | | | [address] | [phone] | | | | | [phone] | | | +--------+ + + + [...]
--- OUTSIDE RECORDS SUMMARY | ~2019-12-04 | XMS | Encounter Summary ---
Demographics + + + | Address | [address] | | | [place] [address] | + + + | Home Phone [...] + + + | Author | [place] [employer] [facility] | + + + | Organization | [facility] [employer] [facility] | + + + | Address | Unknown | + + + | Phone | Unavailable | + + + Support + + +---------+ + | Name | Relationship | Address | Phone | + + +---------+ + | Ruby Au | ECON | Unknown | | + + +---------+ + Care Team Providers + +------+ + | Care Turret Punch Press Operator Name | Role | Phone [...] Cerebri | | 2006 | Visit | Ker[place] | [address] | (Primary Dx) | | | | Oculoplastics at | [place], [place] | | | | | [address] | [address] | | | | | [place] | [phone] | | | | | Mailcode: PATTI | | | | | | [place] [address] | | | | | | [phone] | | | +--------+---------+ + + + [...]
--- OUTSIDE RECORDS SUMMARY | ~2019-12-04 | XMS | Encounter Summary ---
Demographics + + + | Address | [address] | | | [place] [address] | + + + | Home Phone [...] + | Organization | [facility] | [...] Providers + +------+ + | Care Production Controller Name | Role | Phone | + +------+ + PCP | Unavailable | + +------+ + Encounter Details +--------+ + + + + | Date | Type | Department | Care Team | Description | +--------+ + + + + | 09/30/ | Hospital | [facility] | | | | 1991 | Encounter | MED CTR WOMENS | | | | | | HEALTH [address] | | | | | | [place], | | | | | | [place] [address] | | | | | | [phone] | | | +--------+ + + + [...]
--- OUTSIDE RECORDS SUMMARY | ~2019-12-04 | XMS | Encounter Summary ---
Demographics + + + | Address | [address] | | | [place] [address] | + + + | Home Phone [...] + + + | Author | [place] [employer] Science [facility] | + + + | Organization | [facility] [employer]Monkey Science [facility] | [...] Team Providers + +------+ + | Care Inhalation Therapy Teacher Name | Role | Phone [...] | | | Ave Mailcode: CH8N | [place], [place] | | | | | [facility] | [address] | | | | | and Healing, | [phone] | | | | | [facility] | | | | | | Floor [place], [place] | | | | | | [address] | | | | | | [phone] | | | +--------+ + + + [...]
--- OUTSIDE RECORDS SUMMARY | ~2019-12-04 | XMS | Encounter Summary ---
Demographics + + + | Address | [address] | | | [place] [address] | + + + | Home Phone [...] | [facility] | [...] Providers + +------+ + | Care Hull Molder Name | Role | Phone | + +------+ + PCP | Unavailable | + +------+ + Encounter Details +--------+ + + + + | Date | Type | Department | Care Team | Description | +--------+ + + + + | 08/21/ | Hospital | [facility] | | | | 1991 | Encounter | MED CTR EMERGENCY | | | | | | CENTER [address] | | | | | | [place] | | | | | | [address] | | | | | | [phone] | | | +--------+ + + + [...]
--- OUTSIDE RECORDS SUMMARY | ~2019-12-04 | XMS | Encounter Summary ---
Demographics + + + | Address | [address] | | | [place] [address] | + + + | Home Phone [...] | Organization | [facility] | | | [...] + + | 07/24/ | Hospital | [facility] | | | | 1990 | Encounter | MED CTR EMERGENCY | | | | | | CENTER [address] | | | | | | [place] | | | | | | [address] | | | | | | [phone] | | | +--------+ + + + [...]
--- OUTSIDE RECORDS SUMMARY | ~2019-12-04 | XMS | Encounter Summary ---
Demographics + + + | Address | [address] | | | [place] [address] | + + + | Home Phone [...] + + | Author | [place] [employer] [facility] | + + + | Organization | [facility] [employer] [facility] | + + + | Address | Unknown | + + + | Phone | Unavailable | + + + Support + + +---------+ + | Name | Relationship | Address | Phone | + + +---------+ + | Ruby Au | ECON | Unknown | | + + +---------+ + Care Team Providers + +------+ + | Care Clerk Of Court Name | Role | Phone | [...] | | | | | | | [place] | | | | | | | [id number] | | | | | | | [facility] | | | | | | | [place], | | | | | | | [place] [address] | | | | | | | Phone: | | | | | | | [phone] | +--------+--------+ + + + + Encounter Details +--------+ + + + + | Date | Type | Department | Care Team | Description | +--------+ + + + + | 08/01/ | Hospital | [facility] [address] | Sam Pedroza MD | | | 2007 - | Encounter | [place] | [address] | | | | | [id number] [facility] | [place], [place] | | | 08/02/ | | HOSPITAL [place], | [address] | | | 2007 | | [place] [address] | [phone] | | | | | [phone] | | | +--------+ + + + [...] in 2 weeks, please call for appointment: [phone] Condition On Discharge: Vital Signs at discharge [...] in 2 weeks, please call for appointment: [phone] Condition On Discharge: Vital Signs at discharge [...] independently, has no ADL needs and [facility] Dr. Pedroza agreed that she would not need therapies. Spoke with RN who endorses that pt has been up independently last pm and this am. OT to sign off at this time. Yessenia Nowak, OTR/ L 56037 Tomasz Caldera Md - 02/2008 11:08 AM [...] | + +---------+ + + | [facility] DEPARTMENT OF | | | | | RADIOLOGY | | | | + +---------+ + + OPERATION RECORD (08/01/2008 12:00 AM PDT) + + + | Narrative | Performed At | + + + | [id number] | | | [id number] | | | [place] [id number] Date: | | | 08/01/2008 Attending Surgeon: | | | Sam Pedroza M.D. Creative Services Director(s): | | | Tomasz Rice M.D. | [...] | tonsils and then gently incised. A Marston 4 was then easily fed | | [...] | | | Pooja Pedroza M.D. / [id number] / | | | [id number] / [id number] / | | + + + + + | Procedure Note | + + | Krystal Rushing, Tomasz - 08/01/2008 12:00 AM PDT [id number] | | [id number] [place] | | [id number] Date: 08/01/2008 Attending Surgeon: Sam | | Pooja Pedroza Creative Services Director(s): Tomasz Riec M.D. | | Palomo Jansen M.D. Preoperative [...] tonsils and | | thengently incised. A Marston 4 was then easily fed through it, [...] Sam Pedroza M.D. KG / | | [id number] / [id number] / [id number] / T: 08/02/2008 | |dripping from the [...] tonsils and then | |gently incised. A Marston 4 was then easily fed through it, [...] | | | |KG / HS | |[id number] / [id number] / 65844 / | | | | | | | | | | | | | | | | | | | | | + + TEACHING PHYSICIAN (08/01/2008 12:00 AM PDT) + + + | Narrative | Performed At | + + + | [id number] | | | [id number] | | | [place] [id number] | | | Date: 08/01/2008 Attending Surgeon: | | | Sam Pedroza M.D. Creative Services Director(s): | | | Tomasz Rice M.D. | [...] | | | Pooja Pedroza / LANETTE [id number] / [id number] / 24496 / 13915 D: | | | 08/01/2008 | | + + + + + | Procedure Note | + + | Sam Pedroza MD - 08/01/2008 12:00 AM PDT [id number] | | [id number] [place] | | [id number] Date: 08/01/2008ttending Surgeon: Sam | | Pooja Pedroza Creative Services Director(s): Tomasz Rice M.D. | | Palomo Jansen [...] report will be dictated by | | iBsi. Sam Pedroza M.D. AD / [id number] / [id number] / [id number] / 04093V: | | 08/01/2008T: 08/01/2008 | | | [...] | | | |AD / HS | |[id number] / [id number] / 19766 / 41718 | | | | | | | [...]
--- OUTSIDE RECORDS SUMMARY | ~2019-12-04 | XMS | Encounter Summary ---
Demographics + + + | Address | [address] | | | [place] [address] | + + + | Home Phone [...] + + + | Author | [place] [employer] [facility] | + + + | Organization | [facility] [employer] [facility] | + + + | Address | Unknown | + + + | Phone | Unavailable | + + + Support + + +---------+ + | Name | Relationship | Address | Phone | + + +---------+ + | Ruby Au | ECON | Unknown | | + + +---------+ + Care Team Providers + +------+ + | Care Supervisor Sewing Department Name | Role | Phone | [...] | | | Ave Mailcode: [address] | [place], [place] | Encounters | | | | [facility] | [address] | | | | | and [place], | [phone] | | | | | [facility] | | | | | | Floor [place], [place] | | | | | | [address] | | | | | | [phone] | | | +--------+ + + + [...]
--- OUTSIDE RECORDS SUMMARY | ~2019-12-04 | XMS | Encounter Summary ---
Demographics + + + | Address | [address] | | | [place] [address] | + + + | Home Phone [...] + + + | Author | [place] [employer] [facility] | + + + | Organization | [facility] [employer] [facility] | + [...] Team Providers + +------+ + | Care Preforming Machine Operator Name | Role | Phone [...] | | | Ave Mailcode: CH8N | [place], [place] | | | | | [facility] | [address] | | | | | and Healing, | [phone] | | | | | [facility] | | | | | | Floor [place], [place] | | | | | | [address] | | | | | | [phone] | | | +--------+ + + + [...]
--- OUTSIDE RECORDS SUMMARY | ~2019-12-04 | XMS | Encounter Summary ---
Demographics + + + | Address | [address] | | | [place] [address] | + + + | Home Phone [...] | [facility] | [...] Team Providers + +------+ + | Care Translator/Interpreter Name | Role | Phone | + +------+ + PCP | Unavailable | + +------+ + Encounter Details +--------+ + + + + | Date | Type | Department | Care Team | Description | +--------+ + + + + | 05/31/ | Hospital | [facility] | | | | 1991 | Encounter | [facility] | | | | | | [facility] [address] | | | | | | [place], | | | | | | [place] [address] | | | | | | [phone] | | | +--------+ + + + [...]
--- OUTSIDE RECORDS SUMMARY | ~2019-12-04 | XMS | Encounter Summary ---
Demographics + + + | Address | [address] | | | [place] [address] | + + + | Home Phone [...] + + + | Author | [place] [facility] | + + + | Organization | [facility] [employer] [facility] | [...] Providers + +------+ + | Care Machine Deburrer Name | Role | Phone | [...] | | | | | | | [place] | | | | | | | [id number] | | | | | | | [facility] | | | | | | | [place], | | | | | | | [place] [address] | | | | | | | Phone: | | | | | | | [phone] | +--------+--------+ + + + + Encounter Details +--------+ + + + + | Date | Type | Department | Care Team | Description | +--------+ + + + + | 08/01/ | Hospital | [facility] [address] | Sam Pedroza MD | | | 2007 - | Encounter | [place] | [address] | | | | | [id number] [facility] | [place], [place] | | | 08/02/ | | HOSPITAL [place], | [address] | | | 2007 | | [place] [address] | [phone] | | | | | [phone] | | | +--------+ + + + [...] in 2 weeks, please call for appointment: [phone] Condition On Discharge: Vital Signs at discharge [...] in 2 weeks, please call for appointment: [phone] Condition On Discharge: Vital Signs at discharge [...] independently, has no ADL needs and [facility] Dr. Pedroza agreed that she would not need therapies. Spoke with RN who endorses that pt has been up independently last pm and this am. OT to sign off at this time. Yessenia Nowak, OTR/ L 38035 Tomasz Caldera Md - 02/2008 11:08 AM [...] | | + +---------+ + + | [facility] DEPARTMENT OF | | | | | RADIOLOGY | | | | + +---------+ + + OPERATION RECORD (08/01/2008 12:00 AM PDT) + + + | Narrative | Performed At | + + + | [id number] | | | [id number] | | | [place] [id number] Date: | | | 08/01/2008 Attending Surgeon: | | | Sam Pedroza M.D. Local Telephone Operator(s): | | | Tomasz Rice M.D. | [...] | tonsils and then gently incised. A Davis 4 was then easily fed | | [...] | | | Pooja Pedroza M.D. / [id number] / | | | [id number] / 73897 / | | + + + + + | Procedure Note | + + | Krystal Rushing, Tomasz - 08/01/2008 12:00 AM PDT [id number] | | [id number] [place] | | [id number] Date: 08/01/2008 Attending Surgeon: Sam | | Pooja Pedroza Local Telephone Operator(s): Tomasz Rice M.D. | | Palomo Jansen [...] tonsils and | | thengently incised. A Davis 4 was then easily fed through it, [...] Sam Pedroza M.D. KG / | | [id number] / [id number] / [id number] / T: 08/02/2008 | |dripping from the [...] tonsils and then | |gently incised. A Davis 4 was then easily fed through it, [...] | | | |KG / HS | |[id number] / [id number] / 65525 / | | | | | | | | | | | | | | | | | | | | | + + TEACHING PHYSICIAN (08/01/2008 12:00 AM PDT) + + + | Narrative | Performed At | + + + | [id number] | | | [id number] | | | [place] [id number] | | | Date: 08/01/2008 Attending Surgeon: | | | Sam Pedroza M.D. Local Telephone Operator(s): | | | Tomasz Rice M.D. | [...] Sam | | | Pooja Pedroza / ALNETTE [id number] / [id number] / 40573 / 78267 D: | | | 08/01/2008 | | + + + + + | Procedure Note | + + | Sam Pedroza MD - 08/01/2008 12:00 AM PDT [id number] | | [id number] [place] | | [id number] Date: 08/01/2008ttending Surgeon: Sam | | Pooja Pedroza Local Telephone Operator(s): Tomasz Rice M.D. | | Palomo Jansen [...] | Bisi. Sam Pedroza M.D. AD / [id number] / [id number] / 23714 / 59925X: | | 08/01/2008T: 08/01/2008 | | | [...] | | | |AD / HS | |[id number] / [id number] / 17030 / 98923 | | | | | | | [...]
--- OUTSIDE RECORDS SUMMARY | ~2019-12-04 | XMS | Encounter Summary ---
Demographics + + + | Address | [address] | | | [place] [address] | + + + | Home Phone [...] | Organization | [facility] | [...] Providers + +------+ + | Care Import Customer Service Manager Name | Role | Phone | + +------+ + PCP | Unavailable | + +------+ + Encounter Details +--------+ + + + + | Date | Type | Department | Care Team | Description | +--------+ + + + + | 05/26/ | Hospital | [facility] | Alexa Bower DO | Infection of lumbar | | 2017 - | Encounter | [facility] [address] | [address] | spine (HCC); Type 2 | | | [address] | [place] [address] | diabetes mellitus | | 05/27/ | | [place], [place] | [phone] | without | | 2017 | | [address] | | complication, | | | | [phone] | | unspecified long | | | | | | term insulin use | | | | | | status ([facility]); | | | | | | History of drug | | | | | | abuse; BMI | | | | | | 40.0-44.9, adult | | | | | | ([facility]); Back pain, | | | [...] 154 Date of Service: 05/27/171842 Status: Signed Overhead Distribution Engineer: Reynold Garcia MD (Physician) I was [...] 05/27/171849 Date of Service: 05/27/171842 Status: Signed Overhead Distribution Engineer: Mesha Brown RN (Registered Nurse) Pt [...] Date of Service: 05/27/17 1303 Status: Signed Overhead Distribution Engineer: Mesha Brown RN (Registered Nurse) Went [...] Date of Service: 05/27/17 1045 Status: Signed Overhead Distribution Engineer: Da Goode RN (Registered Nurse) 05/27/17 [...] Oriented Prior functional status independant Power of Ux Design Manager No Anticipated Discharge Plan Post Acute Care Needs None at this time Resources Financial concerns No Transportation issues No ( will transport) Patient/Family concerns No Prescription Plan Yes Name of Pharmacy [facility] phone number [phone] Previous home health equipment No Vascular access device No Ostomy/Drains/Appliances No Anticipated Disposition Facility Type Home Met with patient at bedside. Annabella is a 41 year old female with a history of anxiety/depre sssion, HTN, COPD, DM type 2, and IV drug use. She lives in [place], [place] with her daughter 2 6, and 14 year old twins. Her is currently getting a new house ready for them to mov e into and is active in their lives. Annabella went to [facility] for pelvic pain and spotting but left AMA while waiting for MR I results because she couldn't smoke. The hospital called her and recommended her to go to [facility] based on the MRI results. Patient is independent in all ADL's. Because of the IV drug use, sending her home with an I V line is not recommended is she needs outpatient IV abx. Patient's PCP is: Virginia Reddy TOOL PLANER SET UP OPERATOR Patient's insurance:[facility] MANAGED CARE COORDINATOR; [employer] Coverage concerns:no Medication coverage/concerns: no Community resources utilized / needed: TBD Assistance in transportation: not at this time Identification of any specific education / training: TBD Barriers to Discharge / Alternative housing needed: not at this time Anticipated DCP: Home DA GOODE RN Case Management [phone] orenalicja morley, Andre Marmolejo MD - 05/27/2017 9:46 AM PDT Progress Notes by Andre Alonso MD-R1 at 05/27/17 0946 Author: [email or web address] Service: Hospitalist Author Type: Resident-Y1 Filed: 05/27/171900 Date of Service: 05/27/17945 Status: Attested Overhead Distribution Engineer: JIMENA [email or web address] (Resident-Y1) Cosigner: Reynold Garcia MD [...] hospitalization due to abuse p otential and retirement side effects. I anticipate that pt may not be happy during this hospi yuridia stay for this reason. I recommend risk management to see pt proactively. IVDU; heroin H/o ANNEALER shunt. [facility] Service: Hospitalist Progress Note Hospital Day: LOS: 0 days Post-Op Day: * No surgery found * SUBJECTIVE Patient Summary: the patient is a 41-year-old female with significant past medical h istory of type II diabetes, hypertension, gastroesophageal reflux disease, depression, IV dr hawa goldsmith who is a transfer from [facility] for further evaluation. Events Overnight: [...] IV drug abuse who was transferred from [facility] in [place], [place] for further evaluation of suspicious lumbar [...] 05/27/17635 Date of Service: 05/27/17633 Status: Signed Overhead Distribution Engineer: Cathy Garcia RN (Registered Nurse) Contacted [facility]. Will fax over current microbiology GC test along with most current wound culture results. onver ludwin Transaction, Provider Unknown - 05/27/2017 5:15 AM PDT Progress Notes by Remy Trinidad RPH at 05/27/17514 Author: Remy Trinidad RPH Service: Pharmacy Author Type: Pharmacist Filed: 05/27/17514 Date of Service: 05/27/17514 Status: Signed Overhead Distribution Engineer: Remy Trinidad RPH (Pharmacist) Note ccl [...] NEGATIVE Testing | | | performed at [facility];[address] [place] [address];[place] [address] | | + + + + +---------+ [...] | | | Fingerstick | performed at [facility];[address] | | LAB | | | | [address]da Hammer;[place] | | | | | | [address] | | | | + + + [...] | | | Fingerstick | performed at [facility];[address] | | LAB | | | | [address];[place], [place] | | | | | | [address] | | | | + + + [...] - 1.030 | EXTERNAL | | | [place] | | | LAB | | + [...] | | l squamous | performed at [facility], [address] | | LAB | | | epithelia, | Teresa [address], | | | | | UA | [place] [address] | | | | + + + [...] | | | Patient | performed at [facility] | | LAB | | | | [address] Hammer;[place], [place] | | | | | | [address] | | | | + + + [...] | | | | | performed at [facility];[address] | | | | | | [address] Clark;[place], [place] | | | | | | [address] | | | | + + + [...] | | | Basophils | performed at [facility], [address] | K/uL | LAB | | | | Teresa [address], | | | | | | [place] [address] | | | | + + + [...] EXTERNAL | | | | performed at [facility], [address] | | LAB | | | | [address], | | | | | | [place] [address] | | | | + + + [...] | | | | | [place] [address] | | | | + + + [...] + + | Hemoglobin | 5.7Comment: The Indonesian | 4.0 - 6.0 % | EXTERNAL [...] | | | | | performed at [facility], [address] | | | | | | [facility], | | | | | | [place] [address] | | | | + + + [...] Clark, | | | | | | [place] [address] | | | | + + + [...] | | | Fingerstick | performed at [facility];[address] | | LAB | | | | Nereyda Hammer;[place] | | | | | | [address] | | | | + + + [...] | | | | | performed at [facility];[address] | | | | | | [address] Hammer;[place], [place] | | | | | | [address] | | | | + + + [...] EXTERNAL | | | | performed at [facility];888 | mmol/L | LAB | | | | [address]da Clark;[place], [place] | | | | | | [address] | | | | + + + [...] at | | | | | | [facility];[address] [place] [address] | | | | | | Blvd;[place] [address] | | | | + + + [...] EXTERNAL | | | | performed at [facility];[address] | | LAB | | | | [address] Clark;[place], [place] | | | | | | [address] | | | | + + + [...] EXTERNAL | | | | performed at [facility] | | LAB | | | | Ne[address]da Hammer;[place], [place] | | | | | | [address] | | | | + + + [...] | | | QUALITATIVE | performed at [facility] | | LAB | | | | [facility];[place], [place] | | | | | | [address] | | | | + + + [...] - 1.030 | EXTERNAL | | | [place] | | | LAB | | + [...] | | | Cells | performed at [facility];[address] | | LAB | | | | [address]da Hammer;[place], [place] | | | | | | [address] | | | | + + + [...] 2 diabetes mellitus without complication, unspecified termite treater insulin use | | status | + [...]
--- OUTSIDE RECORDS SUMMARY | ~2019-12-04 | XMS | Encounter Summary ---
Demographics + + + | Address | [address] | | | [place] [address] | + + + | Home Phone [...] + + + | Author | [place] [employer] [facility] | + + + | Organization | [facility] [facility] | + + [...] Providers + +------+ + | Care Die Repairer Trimmer Dies Name | Role | Phone | + [...] | | Ave Mailcode: CH8N | [place], [place] | | | | | [facility] | [address] | | | | | and Healing, | [phone] | | | | | [facility] | | | | | | Floor [place], [place] | | | | | | [address] | | | | | | [phone] | | | +--------+ + + + [...]
--- OUTSIDE RECORDS SUMMARY | ~2019-12-04 | XMS | Encounter Summary ---
Demographics + + + | Address | [address] | | | [place] [address] | + + + | Home Phone [...] + | Organization | [facility] | [...] Providers + +------+ + | Care Credit And Loan Collections Supervisor Name | Role | Phone | + +------+ + PCP | Unavailable | + +------+ + Encounter Details +--------+ + + + + | Date | Type | Department | Care Team | Description | +--------+ + + + + | 07/10/ | Emergency | [facility] | [address] | Headache; Benign | | 2012 | | MEDICAL CENTER | [place] [address] | intracranial | | | | EMERGENCY CENTER | [address] | hypertension; Back | | | | [address] | [place] [address] | pain | | | | [place], [place] | [phone] | | | | | [address] | | | | | | [phone] | | | +--------+ + + + [...] | + + + | ANNABELLA Waters [facility] CT HEAD WO CONTRAST HISTORY: 37 [...]
--- OUTSIDE RECORDS SUMMARY | ~2019-12-04 | XMS | Encounter Summary ---
Demographics + + + | Address | [address] | | | [place] [address] | + + + | Home Phone [...] + + | Author | [place] [employer] [facility] | + + + | Organization | [facility] [employer] [facility] [...] Providers + +------+ + | Care Registered Veterinary Technician Name | Role | Phone [...] Mailcode: | | | | | | [place], [place] | [address] [facility] | | | | | | [address] | Hospital | | | | | | Phone: | [place], [place] | | | | | | [phone] | [address] | | | | | | Fax: | Phone: | | | | | | [phone] | [phone] | | | | | | | Fax: | | | | | | | [phone] | +--------+--------+ + + + + Reason for Visit + + + | Reason | Comments | + + + | 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 | | + + + Encounter Details +--------+ + + + + | Date | Type | Department | Care Team | Description | +--------+ + + + + | 03/13/ | Emergency | [facility] Emergency | Mack Castrejon MD | | | 2012 | | Department [address] | [address] [facility] | | | | | [address] | [facility] | | | | | [facility] | [place], [place] | | | | | [place], [place] | [address] | | | | | [address] | [phone] | | | | | [phone] | | | | | | | [...] the irma aviva. Thanks for coming to [facility] today. Your head CT was negative for any new findings. The neurosurgeon did not think there was a malfunction in your shunt. The business services specialist sales recommends you taking Diomox again and follow up in 1 week at [place] [facility]. Please follow up with your doctor. Rest, [...] TOTH | [address] | [place], [place] | | | NACHO POINT OF CARE | [address] | [address] | | | TESTS | | | [...] | + + + + + | [facility] | [address] | [place] [address] | | | SERVICES, CORE | SKY [...] | | | | | CHRISTIANO TORRES ([id number]) | | | | | | on 03/14/2013 10:35:55 AM | | | | + + + + + + + + | Specimen | + + | | + + + + + | Narrative | Performed At | + + + | Please click | [facility] | | on view image for the detailed interpretation from [employer] results. | CARDIOLOGY | + + + + + + + + | Performing | Address | City/State/Zipcode | Phone Number | | Organization | | | | + + + + + | [facility] | [address] | [place], [place] | | | CARDIOLOGY | [address] | [address] | | + + + + + [...] [facility] | [address] | [place], [place] | | | NACHO POINT OF CARE | [address] | [address] | | | TESTS | | | [...] [facility] | [address] | [place] [address] | | | SERVICES, CORE | PARK [...] | + + + + + | [facility] | [address] | [place] [address] | | | SERVICES, CORE | SKY [...] | | | LABORATORY | | | BELARUSIAN | | | SERVICES, | | | [...] | + + + + + | [facility] | [address] | [place] [address] | | | SERVICES, CORE | PARK [...] | + + + + + | [employer] | [address] | [place] [address] | | | SERVICES, CORE | SKY [...] + | [place] - [place] - | [address] | [place] [address] | | | [place] | | | [...] | + + + + + | [facility] | [address] | [place] [address] | | | SERVICES, CORE | SKY [...]
--- OUTSIDE RECORDS SUMMARY | ~2019-12-04 | XMS | Encounter Summary ---
Demographics + + + | Address | [address] | | | [place] [address] | + + + | Home Phone [...] Organization | [facility] | | [...] Providers + +------+ + | Care Top Tile Decorator Name | Role | Phone | + +------+ + PCP | Unavailable | + +------+ + Encounter Details +--------+ + + + + | Date | Type | Department | Care Team | Description | +--------+ + + + + | 05/21/ | Hospital | [facility] | | | | 1991 | Encounter | [facility] | | | | | | HEALTH SV [address] | | | | | | [place], | | | | | | [place] [address] | | | | | | [phone] | | | +--------+ + + + [...]
--- OUTSIDE RECORDS SUMMARY | ~2019-12-04 | XMS | Encounter Summary ---
Demographics + + + | Address | [address] | | | [place] [address] | + + + | Home Phone [...] Organization | [facility] | | [...] Team Providers + +------+ + | Care Yeast Fermentation Attendant Name | Role | Phone | [...] left hand | [address] | | | | n | Weakness of | [address] | [place], | | | | | both hands | [place], | [place] [address] | | | | | [place] left | [place] [address] | Phone: | | | | | wrist Pain | Phone: | [phone] | | | | | of right | [phone] | Fax: | | | | | thumb | Fax: | [phone] | | | | | Trigger | [phone] | | | | | | finger of | | | | | | | right thumb | | | | | | | Procedures | | | | | | | MN MOTOR | | | | | | | &/SENS > | | | | | | | NRV CNDJ | | | | | | | PRECONF | | | | | | | ELTRODE LIMB | | | | | | | MN NEEDLE | | | | | | [...] | | | | | Trigger | [address] | [place] | | | | | finger of | [place], | [place] | | | | | right thumb | [place] [address] | [address] | | | | | | Phone: | Phone: | | | | | | [phone] | [phone] | | | | | | Fax: | Fax: | | | | | | [phone] | [phone] | +--------+ + + + + + [...] | | Rehabilitatio | tunnel | PA-C [address] | [address] | | | | n | syndrome on | | [place], | | | | | left | [place] | [place] [address] | | | | | | WAY | Phone: | | | | | | [place], | [phone] | | | | | | [place] [address] | Fax: | | | | | | Phone: | [phone] | | | | | | [phone] | | | | | | | Fax: | | | | | | | [phone] | | +--------+--------+ + + + + Encounter Details +--------+---------+ + + + | Date | Type | Department | Care Team | Description | +--------+---------+ + + + | 01/03/ | Office | [place] | Amanuel Jennings, | Numbness of left | | 2019 | Visit | PHYSIATRY [address] | MD [address] | hand (Primary Dx); | | | | [place], | [place] | Weakness of both | | | | [place] [address] | [address] | hands; Mass of left | | | | [phone] | | wrist; Pain of right | [...] encounter Patient Instructions Patient Instructions Adelaide Santa, Chemical Cell Changer - 01/03/2019 1:00 PM Rina chowdhury o [...] b y bilateral carpal tunnel release. Annabella uA is using a wrist splint nightly but reports that this has not improved sy mptoms. Past Medical History Past Medical History: Diagnosis Date Abnormal vaginal bleeding Acute low back pain Antisocial personality disorder ([facility]) Anxiety disorder Asthma Benign essential hypertension Chronic back pain Chronic obstructive lung disease (HCC) Chronic posttraumatic stress disorder Depressive disorder Diabetes mellitus type 2 in obese ([facility]) Gastroesophageal reflux disease Heroin dependence ([facility]) Hoarse Hypertensive disorder Insomnia with sleep apnea IV drug abuse ([facility]) Low back strain Numbness of left hand Obstructive sleep apnea of adult Opioid dependence on agonist therapy ([facility]) Other chronic pain Panic disorder without agoraphobia with severe panic attacks Polysubstance dependence ([facility]) Sedative, hypnotic or anxiolytic dependence, in remission ([facility]) Tobacco user Trigger finger of [...] wrist dorsiflexion , finger abduction, and right lead qa analyst. 4/5 hand lead qa analyst on the left Reflexes: 2+ normal and [...] was asked to review this with Dr. iNckerson and discuss if it my contribute to [...] scribed by in my presence, Adelaide Santa, Chemical Cell Changer and are both accurate and comp lete. [...]
--- OUTSIDE RECORDS SUMMARY | ~2019-12-04 | XMS | Encounter Summary ---
Demographics + + + | Address | [address] | | | [place] [address] | + + + | Home Phone [...] | Organization | [facility] | [...] Providers + +------+ + | Care Extension Associate Name | Role | Phone | + +------+ + PCP | Unavailable | + +------+ + Encounter Details +--------+ + + + + | Date | Type | Department | Care Team | Description | +--------+ + + + + | 07/17/ | Hospital | [facility] | Domingo Darby, | | | 2010 | Encounter | HEART MED CTR | [address] | | | | | EMERGENCY CENTER | [place] [address] | | | | | [address] | [phone] | | | | | [place], [place] | | | | | | [address] | | | | | | [phone] | | | +--------+ + + + [...]
--- OUTSIDE RECORDS SUMMARY | ~2019-12-04 | XMS | Encounter Summary ---
Demographics + + + | Address | [address] | | | [place] [address] | + + + | Home Phone [...] + + | Author | [place] [employer] [facility] | + + + | Organization | [facility] [employer] [facility] | + [...] Team Providers + +------+ + | Care Exhibit Display Representative Name | Role | Phone | [...] Cerebri | | 2006 | Visit | [facility] | Bud Alexander MD [address] | (Primary Dx) | | | | [address] | [address] | | | | | [address] | [place], [place] | | | | | Mailcode: [facility] | [address] | | | | | [place] [address] | [phone] | | | | | [phone] | | | +--------+---------+ + + + [...]
--- OUTSIDE RECORDS SUMMARY | ~2019-12-04 | XMS | Encounter Summary ---
Demographics + + + | Address | [address] | | | [place] [address] | + + + | Home Phone [...] + + + | Author | [place] [employer] [facility] | + + + | Organization | [facility] [employer] [facility] | + + + | Address | Unknown | + + + | Phone | Unavailable | + + + Support + + +---------+ + | Name | Relationship | Address | Phone | + + +---------+ + | Ruby Au | ECON | Unknown | | + + +---------+ + Care Team Providers + +------+ + | Care Rough Carpenter Name | Role | Phone | + [...] [address] | | | | | | [address] | [address] | | | | | | [address] | [place], [place] | | | | | | [place], | [address] | | | | | | [place] [address] | Phone: | | | | | | Phone: | [phone] | | | | | | [phone] | Fax: | | | | | | Fax: | [phone] | | | | | | [phone] | | +--------+ + + + + + Encounter Details +--------+---------+ + + + | Date | Type | Department | Care Team | Description | +--------+---------+ + + + | 09/17/ | Office | Neurosurgery at | Casimiro Payton MD | Pseudotumor cerebri | | 2010 | Visit | [facility] [address] | [address] | (Primary Dx) | | | | Ave Mailcode: CH8N | [place], [place] | | | | | [facility] | [address] | | | | | and Healing, | [phone] | | | | | [facility] | | | | | | Floor [place], [place] | | | | | | [address] | | | | | | [phone] | | | +--------+---------+ + + + [...] soon. I spent more than 15 minutes [id number] with the patient of which greater than 50% was sp ent counseling the patient regarding the shunt removal, indications and venous sinus stent a ngioplasty. Since her shunt is brent effective now she will need narcotics for headache and he r PCP should manage that. CASIMIRO PAYTON MD NEUROSURGERY [address] Mailcode: Ch8n [facility], [address] [facility] [address] documented in this encou nter Plan of Treatment Not on filedocumented as of this encounter Visit Diagnoses + + | Diagnosis | + + | Pseudotumor cerebri - Primary Benign intracranial hypertension | + + documented in this encounter
--- OUTSIDE RECORDS SUMMARY | ~2019-12-04 | XMS | Encounter Summary ---
Demographics + + + | Address | [address] | | | [place] [address] | + + + | Home Phone [...] + | Organization | [facility] [...] Team Providers + +------+ + | Care Matcher Operator Name | Role | Phone | + +------+ + PCP | Unavailable | + +------+ + Encounter Details +--------+ + + + + | Date | Type | Department | Care Team | Description | +--------+ + + + + | 09/30/ | Hospital | [facility] | | | | 1990 | Encounter | MED CTR EMERGENCY | | | | | | CENTER [address] | | | | | | [place] | | | | | | [address] | | | | | | [phone] | | | +--------+ + + + [...]
--- OUTSIDE RECORDS SUMMARY | ~2019-12-04 | XMS | Encounter Summary ---
Demographics + + + | Address | [address] | | | [place] [address] | + + + | Home Phone [...] + + + | Author | [place] [employer] [facility] | + + + | Organization | [facility] [employer] [facility] | + [...] Providers + +------+ + | Care Signal Helper Name | Role | Phone | [...] + + | 06/24/ | Emergency | [facility] Emergency | | | | 2010 | | Department [address] | | | | | | [address] | | | | | | [facility] | | | | | | [place], [place] | | | | | | [address] | | | | | | [phone] | | | +--------+ + + + [...]
--- OUTSIDE RECORDS SUMMARY | ~2019-12-04 | XMS | Encounter Summary ---
Demographics + + + | Address | [address] | | | [place] [address] | + + + | Home Phone [...] + + + | Author | [place] [facility] | + + + | Organization | [facility] [facility] | + + [...] Providers + +------+ + | Care Detective Youth Bureau Name | Role | Phone | [...] Cerebri | | 2007 | Visit | [facility] [address] | [address] | (Primary Dx) | | | | Ave Mailcode: CH8N | [place], [place] | | | | | [facility] | [address] | | | | | and Healing, | [phone] | | | | | [facility] | | | | | | Floor [place], [place] | | | | | | [address] | | | | | | [phone] | | | +--------+---------+ + + + [...]
--- OUTSIDE RECORDS SUMMARY | ~2019-12-04 | XMS | Encounter Summary ---
Demographics + + + | Address | [address] | | | [place] [address] | + + + | Home Phone [...] + + + | Author | [place] [employer] [facility] | + + + | Organization | [facility] [employer] [facility] | + [...] Providers + +------+ + | Care Senior Production Planner Name | Role | Phone | [...] | | [address] Mailcode:OP14B | [place], | | | | | [employer] | [place] [address] | | | | | [place], [place] | | | | | | [address] | | | | | | [phone] | | | +--------+ + + + [...]
--- OUTSIDE RECORDS SUMMARY | ~2019-12-04 | XMS | Encounter Summary ---
Demographics + + + | Address | [address] | | | [place] [address] | + + + | Home Phone [...] + + + | Author | [place] [employer] [facility] | + + + | Organization | [facility] [employer] [facility] | + [...] Team Providers + +------+ + | Care Take Away Attendant Name | Role | Phone | [...] Cerebri | | 2006 | Visit | [place] | | (Primary Dx) | | | | Neuro-Ophthalmology | | | | | | [address] [facility] | | | | | | Mailcode: PATTI | | | | | | [place] [address] | | | | | | [phone] | | | +--------+---------+ + + + [...] Referred by: CASIMIRO PAYTON MD [address] [place] [address] Symptoms: Patient feels things are better. Vision [...] Brad Currie MD Neuro-Ophthalmology and Cerebrovascular Disease Tobacco Hanger of Ophthalmology, Neurology, and Neurosurgery documented in [...]
--- OUTSIDE RECORDS SUMMARY | ~2019-12-04 | XMS | Encounter Summary ---
Demographics + + + | Address | [address] | | | [place] [address] | + + + | Home Phone [...] + + + | Author | [place] [employer] [facility] | + + + | Organization | [facility] [employer] [facility] [...] + +------+ + | Care Rest Room Attendant Name | Role | Phone [...] | | | Ave Mailcode: CH8N | [place], [place] | | | | | [facility] | [address] | | | | | and Healing, | [phone] | | | | | [facility] | | | | | | Floor [place], [place] | | | | | | [address] | | | | | | [phone] | | | +--------+--------+ + + + [...]
--- OUTSIDE RECORDS SUMMARY | ~2019-12-04 | XMS | Encounter Summary ---
Demographics + + + | Address | [address] | | | [place] [address] | + + + | Home Phone [...] + + + | Author | [place] [employer] [facility] | + + + | Organization | [facility] [employer] [facility] | + + + | Address | Unknown | + + + | Phone | Unavailable | + + + Support + + +---------+ + | Name | Relationship | Address | Phone | + + +---------+ + | Ruby Au | ECON | Unknown | | + + +---------+ + Care Team Providers + +------+ + | Care Entry Examiner Name | Role | Phone | [...] | Headache | | 2005 | | [place]/Ophthalmol | MD Jordin | | | | | leon at [facility] [address] | | | | | | [address] Mailcode: | | | | | | CH11P [facility] | | | | | | Health and Healing, | | | | | | Building | | | | | | Floor [place], [place] | | | | | | [address] | | | | | | [phone] | | | +--------+ + + + [...]
--- OUTSIDE RECORDS SUMMARY | ~2019-12-04 | XMS | Encounter Summary ---
Demographics + + + | Address | [address] | | | [place] [address] | + + + | Home Phone [...] | Organization | [facility] | [...] Providers + +------+ + | Care Regional Clinical Research Associate Name | Role | Phone | + +------+ + PCP | Unavailable | + +------+ + Encounter Details +--------+ + + + + | Date | Type | Department | Care Team | Description | +--------+ + + + + | 05/28/ | Hospital | [facility] | | | | 1991 | Encounter | MED CTR EMERGENCY | | | | | | CENTER [address] | | | | | | [place] | | | | | | [address] | | | | | | [phone] | | | +--------+ + + + [...]
--- OUTSIDE RECORDS SUMMARY | ~2019-12-04 | XMS | Clinical Summary ---
Demographics + + + | Address | [address] | | | [place] [address] | + + + | Home Phone [...] Team Providers + +------+ + | Care Windows Server Administrator Name | Role | Phone | + +------+ + | Dennis Maddox | PCP | | + +------+ + Source Comments REBECA is fully live on both [facility] and [facility] InPatient.[facility] Allergies + + + + [...] | | | + +--------+ +--------+-------+---------+--------+ | CASE SPECIALIST MEDICAID | CASE SPECIALIST | xxxxxxxx | 11/28/19 | | [...] | 1975 | [phone] | [place] [address] | | | rene | | | 0 (Home) | | + +--------+ +--------+ + + Advance Directives + + + + + | Type | Date Recorded | Patient | Explanation | | | | Bag Sewer | | + + + + + | Advance | | | | | Directives and | | | | | Living Will | | | | + + + + + | Power of | | | | | Restaurant Server | | | | + + + [...]
--- OUTSIDE RECORDS SUMMARY | ~2019-12-04 | XMS | Encounter Summary ---
Demographics + + + | Address | [address] | | | [place] [address] | + + + | Home Phone [...] + + + | Author | [place] [employer] [facility] | + + + | Organization | [facility] [facility] [...] Team Providers + +------+ + | Care Range Feeder Name | Role | Phone | + +------+ + | Brenden Benavides MD | PCP | | + +------+ + Encounter Details +--------+ + + + + | Date | Type | Department | Care Team | Description | +--------+ + + + + | 09/28/ | Documentati | [facility] | Brad Currie MD | | | 2006 | on | [place] | | | | | | Neuro-Ophthalmology | | | | | | [address] | | | | | | Mailcode: PATTI | | | | | | [place] [address] | | | | | | [phone] | | | +--------+ + + + [...]
--- OUTSIDE RECORDS SUMMARY | ~2019-12-04 | XMS | Encounter Summary ---
Demographics + + + | Address | [address] | | | [place] [address] | + + + | Home Phone [...] + | Organization | [facility] | | | and [...] Team Providers + +------+ + | Care Drug Abuse Resistance Education Officer Name | Role | Phone | + +------+ + PCP | Unavailable | + +------+ + Encounter Details +--------+ + + + + | Date | Type | Department | Care Team | Description | +--------+ + + + + | 09/30/ | Hospital | [facility] | | | | 1990 | Encounter | MED CTR EMERGENCY | | | | | | CENTER [address] | | | | | | [place] | | | | | | [address] | | | | | | [phone] | | | +--------+ + + + [...]
--- OUTSIDE RECORDS SUMMARY | ~2019-12-04 | XMS | Encounter Summary ---
Demographics + + + | Address | [address] | | | [place] [address] | + + + | Home Phone [...] | Organization | [facility] | | [...] Team Providers + +------+ + | Care Talent Solutions Manager Name | Role | Phone | + +------+ + PCP | Unavailable | + +------+ + Encounter Details +--------+ + + + + | Date | Type | Department | Care Team | Description | +--------+ + + + + | 09/30/ | Hospital | [facility] | | | | 1991 | Encounter | MED [facility] | | | | | | HEALTH SV [address] | | | | | | [place], | | | | | | [place] [address] | | | | | | [phone] | | | +--------+ + + + [...]
--- OUTSIDE RECORDS SUMMARY | ~2019-12-04 | XMS | Encounter Summary ---
Demographics + + + | Address | [address] | | | [place] [address] | + + + | Home Phone [...] Team Providers + +------+ + | Care Hedis Registered Nurse Rn Name | Role | Phone | + +------+ + PCP | Unavailable | + +------+ + Encounter Details +--------+ + + + + | Date | Type | Department | Care Team | Description | +--------+ + + + + | 08/01/ | Hospital | [facility] | | | | 1991 | Encounter | MED [facility] | | | | | | HEALTH SV [address] | | | | | | [place], | | | | | | [place] [address] | | | | | | [phone] | | | +--------+ + + + [...]
--- OUTSIDE RECORDS SUMMARY | ~2019-12-04 | XMS | Encounter Summary ---
Demographics + + + | Address | [address] | | | [place] [address] | + + + | Home Phone [...] + + + | Author | [place] [employer] [facility] | + + + | Organization | [facility] [employer] [facility] | [...] + +------+ + | Care Business Services Analyst Name | Role | Phone | + +------+ + | Pedro Luis Sasm MD | PCP | | + +------+ + Encounter Details +--------+ + + + + | Date | Type | Department | Care Team | Description | +--------+ + + + + | 10/19/ | Telephone | [facility] | Funmilayo Osoroi MD | | | 2010 | | [place]/Ophthalmol | [address] | | | | | leon at [facility] [address] | [place], [place] | | | | | [address] Mailcode: | [address] | | | | | [address] [facility] | [phone] | | | | | Health and Healing, | | | | | | [facility] | | | | | | [place], [place] | | | | | | [address] | | | | | | [phone] | | | +--------+ + + + [...]
--- OUTSIDE RECORDS SUMMARY | ~2019-12-04 | XMS | Encounter Summary ---
Demographics + + + | Address | [address] | | | [place] [address] | + + + | Home Phone [...] | Organization | [facility] | | | and [...] Providers + +------+ + | Care Hand Router Operator Name | Role | Phone | + +------+ + PCP | Unavailable | + +------+ + Encounter Details +--------+ + + + + | Date | Type | Department | Care Team | Description | +--------+ + + + + | 10/12/ | Hospital | [facility] | | | | 1991 | Encounter | MED [facility] | | | | | | HEALTH SV [address] | | | | | | [place], | | | | | | [place] [address] | | | | | | [phone] | | | +--------+ + + + [...]
--- OUTSIDE RECORDS SUMMARY | ~2019-12-04 | XMS | Encounter Summary ---
Demographics + + + | Address | [address] | | | [place] [address] | + + + | Home Phone [...] + + + | Author | [place] [employer] [facility] | + + + | Organization | [facility] | + [...] Providers + +------+ + | Care Production Internship Name | Role | Phone | [...] Cerebri | | 2005 | Visit | [place] | | (Primary Dx) | | | | Neuro-Ophthalmology | | | | | | [address] [facility] | | | | | | Mailcode: PATTI | | | | | | [place] [address] | | | | | | [phone] | | | +--------+---------+ + + + [...] Brad Currie MD Neuro-Ophthalmology and Cerebrovascular Disease Immunology Specialist of Ophthalmology, Neurology, and Neurosurgery documented [...]
--- OUTSIDE RECORDS SUMMARY | ~2019-12-04 | XMS | Encounter Summary ---
Demographics + + + | Address | [address] | | | [place] [address] | + + + | Home Phone [...] + + | Author | [place] [employer] [facility] | + + + | Organization | [facility] [employer] [facility] | + [...] Team Providers + +------+ + | Care Latrine Cleaner Name | Role | Phone | + +------+ + | Yeison Simms MD | PCP | Unavailable | + +------+ + Encounter Details +--------+ + + + + | Date | Type | Department | Care Team | Description | +--------+ + + + + | 05/26/ | Telephone | Neurosurgery at | Kiki Rosen, | | | 2008 | | [facility] [address] | [place]A JOSE | | | | | [place] Mailcode: CH8N | Neurosurgery [address] | | | | | [facility] | [address] | | | | | and Healing, | [place], [place] | | | | | [place] [address] | [address] | | | | | Floor [place], [place] | | | | | | [address] | | | | | | [phone] | | | +--------+ + + + [...]
--- OUTSIDE RECORDS SUMMARY | ~2019-12-04 | XMS | Encounter Summary ---
Demographics + + + | Address | [address] | | | [place] [address] | + + + | Home Phone [...] Organization | [facility] | [...] Providers + +------+ + | Care Software Tools Developer Name | Role | Phone | + +------+ + PCP | Unavailable | + +------+ + Encounter Details +--------+ + + + + | Date | Type | Department | Care Team | Description | +--------+ + + + + | 06/10/ | Hospital | [facility] | | | | 1991 | Encounter | MED CTR [facility] | | | | | | HEALTH SV [address] | | | | | | [place], | | | | | | [place] [address] | | | | | | [phone] | | | +--------+ + + + [...]
--- OUTSIDE RECORDS SUMMARY | ~2019-12-04 | XMS | Encounter Summary ---
Demographics + + + | Address | [address] | | | [place] [address] | [...] + + + | Author | [place] [employer] [facility] | + + + | Organization | [facility] [employer] [facility] | + [...] Team Providers + +------+ + | Care Hockey Player Name | Role | Phone | + [...] | | | Ave Mailcode: CH8N | [place], [place] | | | | | [facility] | [address] | | | | | and Healing, | [phone] | | | | | [facility] | | | | | | Floor [place], [place] | | | | | | [address] | | | | | | [phone] | | | +--------+ + + + [...]
--- OUTSIDE RECORDS SUMMARY | ~2019-12-04 | XMS | Encounter Summary ---
Demographics + + + | Address | [address] | | | [place] [address] | + + + | Home Phone [...] + + + | Author | [place] [employer] [facility] | + + + | Organization | [facility] [employer] [facility] 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 Visual Acuity: [facility] RE 20/20-1 LE 20/25-2 NI [...]
--- OUTSIDE RECORDS SUMMARY | ~2019-12-04 | XMS | Encounter Summary ---
Demographics + + + | Address | [address] | | | [place] [address] | + + + | Home Phone [...] + + + | Author | [place] Image [employer] [facility] | + + + | Organization | [facility] [employer] [facility] [...] Providers + +------+ + | Care Hair Clipper Power Name | Role | Phone | + [...] | | | Ave Mailcode: CH8N | [place], [place] | | | | | [facility] | [address] | | | | | and [place], | [phone] | | | | | [facility] | | | | | | Floor [place], [place] | | | | | | [address] | | | | | | [phone] | | | +--------+ + + + [...]
--- OUTSIDE RECORDS SUMMARY | ~2019-12-04 | XMS | Encounter Summary ---
Demographics + + + | Address | [address] | | | [place] [address] | + + + | Home Phone [...] Organization | [facility] | [...] Providers + +------+ + | Care Metal Numerical Tool Programmer Name | Role | Phone | + +------+ + PCP | Unavailable | + +------+ + Encounter Details +--------+ + + + + | Date | Type | Department | Care Team | Description | +--------+ + + + + | 04/24/ | Hospital | [facility] | | | | 1991 | Encounter | MED CTR EMERGENCY | | | | | | CENTER [address] | | | | | | [place] | | | | | | [address] | | | | | | [phone] | | | +--------+ + + + [...]
--- OUTSIDE RECORDS SUMMARY | ~2019-12-04 | XMS | Encounter Summary ---
Demographics + + + | Address | [address] | | | [place] [address] | + + + | Home Phone [...] + + + | Author | [place] Lellan Science [facility] | + + + | Organization | [facility] [employer] [facility] [...] Providers + +------+ + | Care Hatchery Worker Name | Role | Phone | [...] Operative Report | | 2006 | | [place] at [facility] [address] | | | | | Transcribed | [address] | | | | | | Mailcode: Center | | | | | | for Health and | | | | | | Healing, [facility] 2 | | | | | | [place], [place] | | | | | | [address] | | | | | | [phone] | | | +--------+ + + + [...] | 02/07/2007 12:00 AM PDT | | [id number] | | [id number] PAT Waters [id number] | | | | Date: 02/07/2007 | | | | Attending Surgeon: Hay Hughes M.D. | | | | Diagram Clerk(s): Pascual Bermudez M.D. | | | | [...] and medial orbital | | septum. The financial sales assistant retracted the orbital fat bag with [...] | | KYM / LANETTE | | [id number] / [id number] / [id number] / [id number] | | | | | | | | cc: | | | | | | Brad Currie M.D. | | [facility] [place] | | | | | | Brenden Benavides M.D. | | [facility] | | [address] | | [place] [address] | | | | | | Electronically signed by Hay Hughes 02-12-2007 05:13:05 PM | | | | | + + documented in this encounter Visit Diagnoses Not on filedocumented in this encounter"
--- OUTSIDE RECORDS SUMMARY | ~2019-12-04 | XMS | Encounter Summary ---
Demographics + + + | Address | [address] | | | [place] [address] | + + + | Home Phone [...] + + + | Author | [place] [employer] [facility] | + + + | Organization | [facility] Health Outcomes [employer] [facility] | + [...] Team Providers + +------+ + | Care Equipment Driver Name | Role | Phone | [...] | Headache | | 2014 | | [place] | [address] | | | | | Neuro-Ophthalmology | [facility] [place] | | | | | at [facility] [address] | [address] | | | | | Ave Mailcode: [facility] | [phone] | | | | | [facility] | | | | | | and Healing, | | | | | | Building | | | | | | Floor [place], [place] | | | | | | [address] | | | | | | [phone] | | | +--------+ + + + [...]
--- OUTSIDE RECORDS SUMMARY | ~2019-12-04 | XMS | Encounter Summary ---
Demographics + + + | Address | [address] | | | [place] [address] | + + + | Home Phone [...] + + + | Author | [place] [employer] [facility] | + + + | Organization | [facility] [employer] [facility] | + + [...] Providers + +------+ + | Care Criminal Research Specialist Name | Role | Phone [...] Cerebri | | 2006 | Visit | [facility] | | | | | | Photography at | | | | | | [facility] [address] | | | | | | [place] | | | | | | Mailcode: Simon | | | | | | [place] [address] | | | | | | [phone] | | | +--------+---------+ + + + [...] PM Mattpilar Au was seen in the [facility]/Ultrasound Department today, 11/30/2006, for ultrasound OU [...]
--- OUTSIDE RECORDS SUMMARY | ~2019-12-04 | XMS | Encounter Summary ---
Demographics + + + | Address | [address] | | | [place] [address] | + + + | Home Phone [...] + + + | Author | [place] [email or web address] [facility] | + + + | Organization | [facility] LIFE INTERACTION [facility] | + [...] Providers + +------+ + | Care Last Picker Name | Role | Phone | [...] | Prescription | | 2012 | | [place]/Ophthalmol | MD Perry | | | | | leon at [facility] [address] | | | | | | [address] Mailcode: | | | | | | CH11P [facility] | | | | | | Health and [facility], | | | | | | Building | | | | | | [place], [place] | | | | | | [address] | | | | | | [phone] | | | +--------+ + + + [...]
--- OUTSIDE RECORDS SUMMARY | ~2019-12-04 | XMS | Encounter Summary ---
Demographics + + + | Address | [address] | | | [place] [address] | + + + | Home Phone [...] + | Organization | [facility] | | [...] + +------+ + | Care Soft Sugar Operator Head Name | Role | Phone | + +------+ + PCP | Unavailable | + +------+ + Encounter Details +--------+ + + + + | Date | Type | Department | Care Team | Description | +--------+ + + + + | 08/12/ | Hospital | [facility] | Jenn O[place], | | | 2012 | Encounter | HOSPITAL EMERGENCY | [facility] [address] | | | | | CENTER [address] | [place] | | | | | [place] | [address] | | | | | [address] | | | | | | [phone] | | | +--------+ + + + [...]
--- OUTSIDE RECORDS SUMMARY | ~2019-12-04 | XMS | Encounter Summary ---
Demographics + + + | Address | [address] | | | [place] [address] | + + + | Home Phone [...] + | Organization | [facility] | | [...] Providers + +------+ + | Care Medical Housekeeper Name | Role | Phone | + +------+ + PCP | Unavailable | + +------+ + Encounter Details +--------+ + + + + | Date | Type | Department | Care Team | Description | +--------+ + + + + | 07/07/ | Hospital | [facility] | | | | 1991 | Encounter | MED CTR EMERGENCY | | | | | | CENTER [address] | | | | | | [place] | | | | | | [address] | | | | | | [phone] | | | +--------+ + + + [...]
--- OUTSIDE RECORDS SUMMARY | ~2019-12-04 | XMS | Encounter Summary ---
Demographics + + + | Address | [address] | | | [place] [address] | + + + | Home Phone [...] + + + | Author | [place] [employer] [facility] | + + + | Organization | [facility] [employer] [facility] | + [...] Providers + +------+ + | Care Supervisor Receiving And Processing Name | Role | Phone | [...] | | Ophthalmology | | Non-[facility] | [place], | | | | | | Epic Dept | Graciela Guardado MD | | | | | | | [address] | | | | | | | [address] [place] | | | | | | | [place], [place] | | | | | | | [address] | | | | | | | Phone: | | | | | | | [phone] | | | | | | | Fax: | | | | | | | [phone] | +--------+--------+ + + + + Encounter Details +--------+---------+ + + + | Date | Type | Department | Care Team | Description | +--------+---------+ + + + | 03/26/ | Office | [facility] | Mo Hood | Pseudotumor cerebri | | 2012 | Visit | [place]/Ophthalmol | MD Perry | (Primary Dx); | | | | ogy at [facility] [address] | | Depression; Type II | | | | [place] Mailcode: | | or unspecified type | | | | [address] for | | diabetes mellitus | | | | Health and Healing, | | without mention of | | | | Building | | complication, not | | | | Floor [place], [place] | | stated as | | | | [address] | | uncontrolled; PTSD | | | | [phone] | | (post-traumatic | | | | [...] HPI: 37 y.o. year old female from [facility] : Patient presents with: IIH - Idiopathic [...] because they live 4 hours away in [facility]. Tobacco use: reports that she [...] Right Left Disc 1+ Optic disc edema, +FIXED INCOME DIRECTOR 2+ Optic disc edema, RNFL whitening at the superonasal borde r of the disc. There is spontaneous pulsing of the entire disc head with heart beat. C/D Ratio 0.1 0.1 Macula Normal Normal Vessels Engorged. tortuous Engorged. tortuous Periphery Normal Normal Neuro/Psych Oriented x3: Yes Mood/Affect: Normal See [facility] Ophthalmology Exam Module for [...] Dr. Lux. Mo Hood MD Resident Physician [facility] [place], PGY-2 [facility] [...]
--- OUTSIDE RECORDS SUMMARY | ~2019-12-04 | XMS | Encounter Summary ---
Demographics + + + | Address | [address] | | | [place] [address] | + + + | Home Phone [...] + | Organization | [facility] | [...] + +------+ + | Care Assistant Professor Nurse Education Name | Role | Phone | + +------+ + PCP | Unavailable | + +------+ + Encounter Details +--------+ + + + + | Date | Type | Department | Care Team | Description | +--------+ + + + + | 01/15/ | Hospital | [facility] | Marine Oden | | | 2011 | Encounter | MED CTR EMERGENCY | DO Gaurang Drake | | | | | [address] | [place], [place] | | | | | [place], [place] | [address] | | | | | [address] | | | | | | [phone] | | | +--------+ + + + [...]
--- OUTSIDE RECORDS SUMMARY | ~2019-12-04 | XMS | Encounter Summary ---
Demographics + + + | Address | [address] | | | [place] [address] | + + + | Home Phone [...] Providers + +------+ + | Care Baggage And Mail Agent Name | Role | Phone | + +------+ + PCP | Unavailable | + +------+ + Encounter Details +--------+ + + + + | Date | Type | Department | Care Team | Description | +--------+ + + + + | 05/28/ | Hospital | [place] | | | | 1991 | Encounter | MED CTR EMERGENCY | | | | | | CENTER [address] | | | | | | [place] | | | | | | [address] | | | | | | [phone] | | | +--------+ + + + [...]
--- OUTSIDE RECORDS SUMMARY | ~2019-12-04 | XMS | Encounter Summary ---
Demographics + + + | Address | [address] | | | [place] [address] | + + + | Home Phone [...] + + | Author | [place] [employer] Personal Care [employer] [facility] | + + + | Organization | [facility] [employer] [facility] | [...] Providers + +------+ + | Care Structural Designer Name | Role | Phone | [...] | | | Ave Mailcode: CH8N | [place], [place] | | | | | [facility] | [address] | | | | | and Healing, | [phone] | | | | | [facility] | | | | | | Floor [place], [place] | | | | | | [address] | | | | | | [phone] | | | +--------+ + + + [...]
--- OUTSIDE RECORDS SUMMARY | ~2019-12-04 | XMS | Encounter Summary ---
Demographics + + + | Address | [address] | | | [place] [address] | + + + | Home Phone [...] + + | Author | [place] [employer] [facility] | + + + | Organization | [facility] [employer] [facility] | + + + | Address | Unknown | + + + | Phone | Unavailable | + + + Support + + +---------+ + | Name | Relationship | Address | Phone | + + +---------+ + | Ruby Au | ECON | Unknown | | + + +---------+ + Care Team Providers + +------+ + | Care Central Supply Tech Name | Role | Phone | [...] | | | Ave Mailcode: CH8N | [place], [place] | | | | | [facility] | [address] | | | | | and Healing, | [phone] | | | | | [facility] | | | | | | Floor [place], [place] | | | | | | [address] | | | | | | [phone] | | | +--------+ + + + [...]
--- OUTSIDE RECORDS SUMMARY | ~2019-12-04 | XMS | Encounter Summary ---
Demographics + + + | Address | [address] | | | [place] [address] | + + + | Home Phone [...] Organization | [facility] [...] + +------+ + | Care Heavy Equipment Rental Associate Name | Role | Phone | + +------+ + PCP | Unavailable | + +------+ + Encounter Details +--------+ + + + + | Date | Type | Department | Care Team | Description | +--------+ + + + + | 10/04/ | Hospital | [facility] | | | | 1991 | Encounter | MED CTR WOMENS | | | | | | HEALTH [address] | | | | | | [place], | | | | | | [place] [address] | | | | | | [phone] | | | +--------+ + + + [...]
--- OUTSIDE RECORDS SUMMARY | ~2019-12-04 | XMS | Encounter Summary ---
Demographics + + + | Address | [address] | | | [place] [address] | + + + | Home Phone [...] Organization | [facility] [...] Providers + +------+ + | Care Hull Drafter Name | Role | Phone | + +------+ + PCP | Unavailable | + +------+ + Encounter Details +--------+ + + + + | Date | Type | Department | Care Team | Description | +--------+ + + + + | 10/14/ | Hospital | [facility] | | | | 1991 | Encounter | MED CTR WOMENS | | | | | | HEALTH SV [address] | | | | | | [place], | | | | | | [place] [address] | | | | | | [phone] | | | +--------+ + + + [...]
--- OUTSIDE RECORDS SUMMARY | ~2019-12-04 | XMS | Encounter Summary ---
Demographics + + + | Address | [address] | | | [place] [address] | + + + | Home Phone [...] + + + | Author | [place] [employer] [facility] | + + + | Organization | [facility] [employer] [facility] | + [...] Team Providers + +------+ + | Care Compound Machine Operator Name | Role | Phone [...] | | | | | | [address] [place], [place] | | | | | | [address] | | | | | | [phone] | | | +--------+ + + + [...]
--- OUTSIDE RECORDS SUMMARY | ~2019-12-04 | XMS | Encounter Summary ---
Demographics + + + | Address | [address] | | | [place] [address] | + + + | Home Phone [...] | Organization | [facility] | [...] Providers + +------+ + | Care Supervisor Ditching Name | Role | Phone | + [...] left hand | [address] | | | | n | Weakness of | [address] | [place], | | | | | both hands | [place], | [place] [address] | | | | | [place] left | [place] [address] | Phone: | | | | | wrist Pain | Phone: | [phone] | | | | | of right | [phone] | Fax: | | | | | thumb | Fax: | [phone] | | | | | Trigger | [phone] | | | | | | finger of | | | | | | | right thumb | | | | | | | Procedures | | | | | | | IN MOTOR | | | | | | | &/SENS > | | | | | | | NRV CNDJ | | | | | | | PRECONF | | | | | | | ELTRODE LIMB | | | | | | | IN NEEDLE | | | | | | [...] | | | | | Trigger | [address] | [place] | | | | | finger of | [place], | [place] | | | | | right thumb | [place] [address] | [address] | | | | | | Phone: | Phone: | | | | | | [phone] | [phone] | | | | | | Fax: | Fax: | | | | | | [phone] | [phone] | +--------+ + + + + + [...] | | Rehabilitatio | tunnel | 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 on | | [place], | | | | | left | [place] | [place] [address] | | | | | | WAY | Phone: | | | | | | [place], | [phone] | | | | | | [place] [address] | Fax: | | | | | | Phone: | [phone] | | | | | | [phone] | | | | | | | Fax: | | | | | | | [phone] | | +--------+--------+ + + + + Encounter Details +--------+---------+ + + + | Date | Type | Department | Care Team | Description | +--------+---------+ + + + | 01/03/ | Office | [facility] [place] | Amanuel Jennings, | Numbness of left | | 2019 | Visit | PHYSIATRY [address] | MD [address] | hand (Primary Dx); | | | | [place], | [place], [place] | Weakness of both | | | | [place] [address] | [address] | hands; Mass of left | | | | [phone] | | wrist; Pain of right | [...] encounter Patient Instructions Patient Instructions Adelaide Santa, Ornamental Metal Worker - 01/03/2019 1:00 PM Rina chowdhury o [...] wrist dorsiflexion , finger abduction, and right yard goods salesperson. 4/5 hand yard goods salesperson on the left Reflexes: 2+ normal and [...] scribed by in my presence, Adelaide Santa, Ornamental Metal Worker and are both accurate and comp lete. [...]
--- OUTSIDE RECORDS SUMMARY | ~2019-12-04 | XMS | Encounter Summary ---
Demographics + + + | Address | [address] | | | [place] [address] | + + + | Home Phone [...] Organization | [facility] | | [...] Providers + +------+ + | Care Associate Pathologist Name | Role | Phone | + +------+ + PCP | Unavailable | + +------+ + Encounter Details +--------+ + + + + | Date | Type | Department | Care Team | Description | +--------+ + + + + | 05/25/ | Hospital | [facility] | | | | 1991 | Encounter | MED CTR WOMENS | | | | | | HEALTH SV [address] | | | | | | [place], | | | | | | [place] [address] | | | | | | [phone] | | | +--------+ + + + [...]
--- OUTSIDE RECORDS SUMMARY | ~2019-12-04 | XMS | Encounter Summary ---
Demographics + + + | Address | [address] | | | [place] [address] | + + + | Home Phone [...] | Organization | [facility] [...] Providers + +------+ + | Care Lamp Shade Sewer Name | Role | Phone | + +------+ + PCP | Unavailable | + +------+ + Encounter Details +--------+ + + + + | Date | Type | Department | Care Team | Description | +--------+ + + + + | 07/24/ | Hospital | [facility] | | | | 1990 | Encounter | MED CTR EMERGENCY | | | | | | CENTER [address] | | | | | | [place] | | | | | | [address] | | | | | | [phone] | | | +--------+ + + + [...]
--- OUTSIDE RECORDS SUMMARY | ~2019-12-04 | XMS | Encounter Summary ---
Demographics + + + | Address | [address] | | | [place] [address] | + + + | Home Phone [...] + + + | Author | [place] [employer] [facility] | + + + | Organization | [facility] | + [...] Providers + +------+ + | Care Primary Substance Abuse Counselor Name | Role | Phone | [...] | | | | | | | [place], [place] | | | | | | | [address] | | | | | | | Phone: | | | | | | | [phone] | | | | | | | Fax: | | | | | | | [phone] | +--------+--------+ + + + + Encounter Details +--------+ + + + + | Date | Type | Department | Care Team | Description | +--------+ + + + + | 05/07/ | Hospital | [facility] [address] | [place], | | | 2007 | Encounter | [address] | MD [place] | | | | | [facility] [facility] | MD Holden,PhD | | | | | [place] | | | | | | [address] | | | | | | [phone] | | | +--------+ + + + [...] Dennis, | | | | | | M.D.Mint Machine Operator surgeon: . | | | | [...] | | | | | cervical region, IVORIAN and | | | | | | [...] | | | | | | vein with6-Beninese Envoy | | | | | | [...] artery. | | | | | | C4Gugzsm Berenstein | | | | | | [...] | | | | | with a 6-Beninese Envoy | | | | | | [...]
--- OUTSIDE RECORDS SUMMARY | ~2019-12-04 | XMS | Encounter Summary ---
Demographics + + + | Address | [address] | | | [place] [address] | + + + | Home Phone [...] + + + | Author | [place] [employer] [facility] | + + + | Organization | [facility] [employer] [facility] | + + [...] Providers + +------+ + | Care Pipe Changer Name | Role | Phone | + +------+ + | Yeison Simms MD | PCP | Unavailable | + +------+ + Encounter Details +--------+ + + + + | Date | Type | Department | Care Team | Description | +--------+ + + + + | 08/23/ | Telephone | Neurosurgery at | Kiki Rosen, | | | 2007 | | [facility] [address] | [place]ORA JOSE | | | | | [place] Mailcode: CH8N | Neurosurgery [address] | | | | | [facility] | [address] | | | | | and Healing, | [place], [place] | | | | | [place] [address] | [address] | | | | | Floor [place], [place] | | | | | | [address] | | | | | | [phone] | | | +--------+ + + + [...]
--- OUTSIDE RECORDS SUMMARY | ~2019-12-04 | XMS | Encounter Summary ---
Demographics + + + | Address | [address] | | | [place] [address] | + + + | Home Phone [...] + | Organization | [facility] [...] Team Providers + +------+ + | Care Biometrician Name | Role | Phone | + +------+ + PCP | Unavailable | + +------+ + Encounter Details +--------+ + + + + | Date | Type | Department | Care Team | Description | +--------+ + + + + | 06/19/ | Hospital | [facility] | | | | 1991 | Encounter | MED CTR WOMENS | | | | | | HEALTH [address] | | | | | | [place], | | | | | | [place] [address] | | | | | | [phone] | | | +--------+ + + + [...]
--- OUTSIDE RECORDS SUMMARY | ~2019-12-04 | XMS | Encounter Summary ---
Demographics + + + | Address | [address] | | | [place] [address] | + + + | Home Phone [...] | Organization | [facility] | [...] Providers + +------+ + | Care Capacitor Repairer Name | Role | Phone | [...] | | | | | | [place] [address] | | | | | | [phone] | | | +--------+ + + + [...]
--- OUTSIDE RECORDS SUMMARY | ~2019-12-04 | XMS | Encounter Summary ---
Demographics + + + | Address | [address] | | | [place] [address] | + + + | Home Phone [...] | Organization | [facility] [...] Providers + +------+ + | Care Metal Cutter Name | Role | Phone | + +------+ + PCP | Unavailable | + +------+ + Encounter Details +--------+ + + + + | Date | Type | Department | Care Team | Description | +--------+ + + + + | 05/26/ | Hospital | [facility] | Alexa Bower DO | Infection of lumbar | | 2017 - | Encounter | [facility] [address] | [address] | spine (HCC); Type 2 | | | [address] | [place] [address] | diabetes mellitus | | 05/27/ | | [place], [place] | [phone] | without | | 2017 | | [address] | | complication, | | | | [phone] | | unspecified long | | | [...] 154 Date of Service: 05/27/171842 Status: Signed Technology Internship: Reynold Garcia MD (Physician) I was informed [...] 05/27/171849 Date of Service: 05/27/171842 Status: Signed Technology Internship: Mesha Brown RN (Registered Nurse) Pt anxious, [...] Date of Service: 05/27/17 1303 Status: Signed Technology Internship: Mesha Brown RN (Registered Nurse) Went to [...] Date of Service: 05/27/17 1045 Status: Signed Technology Internship: Da Goode RN (Registered Nurse) 05/27/17 1042 [...] Oriented Prior functional status independant Power of C Software Engineer No Anticipated Discharge Plan Post Acute Care Needs None at this time Resources Financial concerns No Transportation issues No ( will transport) Patient/Family concerns No Prescription Plan Yes Name of Pharmacy [facility] [place] [facility] phone number [phone] Previous home health equipment No Vascular access device No Ostomy/Drains/Appliances No Anticipated Disposition Facility Type Home Met with patient at bedside. Annabella is a 41 year old female with a history of anxiety/depre sssion, HTN, COPD, DM type 2, and IV drug use. She lives in [place], [place] with her daughter 2 6, and [...] her and recommended her to go to [facility] based on the MRI results. Patient is independent in all ADL's. Because of the IV drug use, sending her home with an I V line is not recommended is she needs outpatient IV abx. Patient's PCP is: Virginia Reddy SAS PROGRAMMER REMOTE Patient's insurance:[facility] FRINGE MAKER; [email or web address] Coverage concerns:no Medication coverage/concerns: no Community resources utilized / needed: TBD Assistance in transportation: not at this time Identification of any specific education / training: TBD Barriers to Discharge / Alternative housing needed: not at this time Anticipated DCP: Home DA GOODE RN Case Management [phone] orenalicja morley, Andre Marmolejo MD - 05/27/2017 9:46 AM PDT Progress Notes by Andre Alonso MD-R1 at 05/27/17 0946 Author: [email or web address] [email or web address] Service: Hospitalist Author Type: Resident-Y1 Filed: 05/27/171900 Date of Service: 05/27/17945 Status: Attested Technology Internship: JIMENA [email or web address] (Resident-Y1) Cosigner: Reynold Garcia MD [...] to see pt proactively. IVDU; heroin H/o FNPS shunt. [facility] Service: Hospitalist Progress Note Hospital Day: [...] IV drug abuse who was transferred from [facility] in [place], [place] for further evaluation of suspicious lumbar [...] 05/27/17635 Date of Service: 05/27/17633 Status: Signed Technology Internship: Cathy Garcia RN (Registered Nurse) Contacted [facility]. Will fax over current microbiology GC test along with most current wound culture results. onver ludwin Transaction, Provider Unknown - 05/27/2017 5:15 AM PDT Progress Notes by Remy Trinidad RPH at 05/27/17514 Author: Remy Trinidad RPH Service: Pharmacy Author Type: Pharmacist Filed: 05/27/17514 Date of Service: 05/27/17514 Status: Signed Technology Internship: Remy Trinidad RPH (Pharmacist) Note ccl 125.9ml/min [...] NEGATIVE Testing | | | performed at [facility];[address] [place] [address];[place] [address] | | + + + + +---------+ [...] | | | Fingerstick | performed at [facility];[address] | | LAB | | | | [address]da Hammer;[place] | | | | | | [address] | | | | + + + [...] | | | Fingerstick | performed at [facility];[address] | | LAB | | | | [address]da Hammer;[place], [place] | | | | | | [address] | | | | + + + [...] - 1.030 | EXTERNAL | | | [place] | | | LAB | | + [...] | | l squamous | performed at [facility], [address] | | LAB | | | epithelia, | Teresa Hammer, | | | | | U[place] | [place] [address] | | | | + + + [...] | | | Patient | performed at [facility] | | LAB | | | | [address] Hammer;[place], [place] | | | | | | [address] | | | | + + + [...] | | | | | performed at [facility];[address] | | | | | | [address]da Clark;[place], [place] | | | | | | [address] | | | | + + + [...] | | | Basophils | performed at [facility], [address] | K/uL | LAB | | | | Teresa [place], | | | | | | [place] [address] | | | | + + + [...] EXTERNAL | | | | performed at [facility], [address] | | LAB | | | | Teresa Hammer, | | | | | | [place] [address] | | | | + + + [...] | | | | | [place] [address] | | | | + + + [...] + + | Hemoglobin | 5.7Comment: The Tanz[place] | 4.0 - 6.0 % | EXTERNAL [...] | | | | | performed at [facility], [address] | | | | | | [facility], | | | | | | [place] [address] | | | | + + + [...] Clark, | | | | | | [place] [address] | | | | + + + [...] | | | Fingerstick | performed at [facility];[address] | | LAB | | | | Nereyda Hammer;[place] | | | | | | [address] | | | | + + + [...] | | | | | performed at [facility];[address] | | | | | | [address] Hammer;[place], [place] | | | | | | [address] | | | | + + + [...] EXTERNAL | | | | performed at [facility];888 | mmol/L | LAB | | | | Nereyda Clark;[place], [place] | | | | | | [address] | | | | + + + [...] at | | | | | | [facility];[address] [place] [address] | | | | | | Blvd;[place] [address] | | | | + + + [...] EXTERNAL | | | | performed at [facility];[address] | | LAB | | | | Nereyda Clark;[place], [place] | | | | | | [address] | | | | + + + [...] EXTERNAL | | | | performed at [facility] | | LAB | | | | Nereyda Hammer;[place], [place] | | | | | | [address] | | | | + + + [...] | | | QUALITATIVE | performed at [facility] | | LAB | | | | [facility];[place], [place] | | | | | | [address] | | | | + + + [...] - 1.030 | EXTERNAL | | | [place] | | | LAB | | + [...] | | | Cells | performed at [facility];[address] | | LAB | | | | Nereyda Hammer;[place], [place] | | | | | | [address] | | | | + + + [...] diabetes mellitus without complication, unspecified termite control technician insulin use | | status | + [...]
--- OUTSIDE RECORDS SUMMARY | ~2019-12-04 | XMS | Encounter Summary ---
Demographics + + + | Address | [address] | | | [place] [address] | + + + | Home Phone [...] + + | Author | [place] [employer] [facility] | + + + | Organization | [facility] [employer] [facility] | + + [...] Providers + +------+ + | Care Agricultural Plow Operator Name | Role | Phone | [...] | | | Ave Mailcode: CH8N | [place], [place] | | | | | [facility] | [address] | | | | | and Healing, | [phone] | | | | | [facility] | | | | | | Floor [place], [place] | | | | | | [address] | | | | | | [phone] | | | +--------+ + + + [...]
--- OUTSIDE RECORDS SUMMARY | ~2019-12-04 | XMS | Encounter Summary ---
Demographics + + + | Address | [address] | | | [place] [address] | + + + | Home Phone [...] + + + | Author | [place] [employer] [facility] | + + + | Organization | [facility] [employer] [facility] [...] Providers + +------+ + | Care Director Nicu Name | Role | Phone | + [...] | | | | 03/01/ | | [facility] | | | | 2013 | | [place], [place] | | | | | | [address] | | | | | | [phone] | | | +--------+ + + + [...]
--- OUTSIDE RECORDS SUMMARY | ~2019-12-04 | XMS | Encounter Summary ---
Demographics + + + | Address | [address] | | | [place] [address] | + + + | Home Phone [...] + | Organization | [facility] | [...] Providers + +------+ + | Care Soda Flaker Name | Role | Phone | + +------+ + PCP | Unavailable | + +------+ + Encounter Details +--------+ + + + + | Date | Type | Department | Care Team | Description | +--------+ + + + + | 05/18/ | Hospital | [facility] | | | | 1991 | Encounter | [facility] | | | | | | HEALTH [address] | | | | | | [place], | | | | | | [place] [address] | | | | | | [phone] | | | +--------+ + + + [...]
--- OUTSIDE RECORDS SUMMARY | ~2019-12-04 | XMS | Encounter Summary ---
Demographics + + + | Address | [address] | | | [place] [address] | + + + | Home Phone [...] | Organization | [facility] | [...] Providers + +------+ + | Care Civil Preparedness Coordinator Name | Role | Phone | + +------+ + PCP | Unavailable | + +------+ + Encounter Details +--------+ + + + + | Date | Type | Department | Care Team | Description | +--------+ + + + + | 04/24/ | Hospital | [facility] | | | | 2004 | Encounter | MED CTR EMERGENCY | | | | | | CENTER [address] | | | | | | [place] | | | | | | [address] | | | | | | [phone] | | | +--------+ + + + [...]
--- OUTSIDE RECORDS SUMMARY | ~2019-12-04 | XMS | Encounter Summary ---
Demographics + + + | Address | [address] | | | [place] [address] | + + + | Home Phone [...] + + + | Author | [place] [employer] [facility] | + + + | Organization | [facility] [employer] [facility] | [...] Providers + +------+ + | Care Supervisor Buffing And Pasting Name | Role | Phone | + +------+ + PCP | Unavailable | + +------+ + Encounter Details +--------+ + + + + | Date | Type | Department | Care Team | Description | +--------+ + + + + | 06/25/ | Telephone | Neurosurgery at | Steph Reyes MD | | | 2010 | | [facility] [address] | | | | | | [address] Mailcode: CH8N | | | | | | [facility] | | | | | | and Healing, | | | | | | Building [address], | | | | | | Floor [place], [place] | | | | | | [address] | | | | | | [phone] | | | +--------+ + + + [...]
--- OUTSIDE RECORDS SUMMARY | ~2019-12-04 | XMS | Encounter Summary ---
Demographics + + + | Address | [address] | | | [place] [address] | + + + | Home Phone [...] Organization | [facility] | | [...] + + | 09/07/ | Hospital | [facility] | | | | 1991 | Encounter | MED CTR EMERGENCY | | | | | | CENTER [address] | | | | | | [place] | | | | | | [address] | | | | | | [phone] | | | +--------+ + + + [...]
--- OUTSIDE RECORDS SUMMARY | ~2019-12-04 | XMS | Encounter Summary ---
Demographics + + + | Address | [address] | | | [place] [address] | + + + | Home Phone [...] + + | Author | [place] [employer] [facility] | + + + | Organization | [facility] [employer] [facility] | + + [...] Providers + +------+ + | Care Care Management Specialist Name | Role | Phone [...] | | | Ave Mailcode: CH8N | [place], [place] | | | | | [facility] | [address] | | | | | and Healing, | [phone] | | | | | [facility] | | | | | | Floor [place], [place] | | | | | | [address] | | | | | | [phone] | | | +--------+ + + + [...]
--- OUTSIDE RECORDS SUMMARY | ~2019-12-04 | XMS | Encounter Summary ---
Demographics + + + | Address | [address] | | | [place] [address] | + + + | Home Phone [...] + + | Author | [place] [employer] [facility] | + + + | Organization | [facility] [employer] [facility] | + [...] Providers + +------+ + | Care Senior Media Director Name | Role | Phone [...] MD | | | 2010 | | [place]/Ophthalmol | [address] | | | | | leon at [facility] [address] | [place], [place] | | | | | [address] Mailcode: | [address] | | | | | CH11P | [phone] | | | | | Health and Healing, | | | | | | [facility] | | | | | | [place], [place] | | | | | | [address] | | | | | | [phone] | | | +--------+ + + + [...]
--- OUTSIDE RECORDS SUMMARY | ~2019-12-04 | XMS | Encounter Summary ---
Demographics + + + | Address | [address] | | | [place] [address] | + + + | Home Phone [...] + + + | Author | [place] [employer] [facility] | + + + | Organization | [facility] [employer] [facility] [...] Team Providers + +------+ + | Care Area Forester Name | Role | Phone | [...] | Headache | | 2005 | | [place]/Ophthalmol | MD Jordin | | | | | leon at [facility] [address] | | | | | | [address] Mailcode: | | | | | | CH11P [facility] | | | | | | Health and Healing, | | | | | | Building | | | | | | Floor [place], [place] | | | | | | [address] | | | | | | [phone] | | | +--------+ + + + [...]
--- OUTSIDE RECORDS SUMMARY | ~2019-12-04 | XMS | Encounter Summary ---
Demographics + + + | Address | [address] | | | [place] [address] | + + + | Home Phone [...] | Organization | [facility] [...] Team Providers + +------+ + | Care Payment Analyst Name | Role | Phone | + +------+ + PCP | Unavailable | + +------+ + Encounter Details +--------+ + + + + | Date | Type | Department | Care Team | Description | +--------+ + + + + | 05/31/ | Hospital | [facility] | | | | 1991 | Encounter | [facility] | | | | | | HEALTH [address] | | | | | | [place], | | | | | | [place] [address] | | | | | | [phone] | | | +--------+ + + + [...]
--- OUTSIDE RECORDS SUMMARY | ~2019-12-04 | XMS | Encounter Summary ---
Demographics + + + | Address | [address] | | | [place] [address] | + + + | Home Phone [...] Organization | [facility] [...] Providers + +------+ + | Care Operations Developer Name | Role | Phone | + +------+ + PCP | Unavailable | + +------+ + Encounter Details +--------+ + + + + | Date | Type | Department | Care Team | Description | +--------+ + + + + | 07/14/ | Hospital | [facility] | | | | 1998 | Encounter | MED CTR EMERGENCY | | | | | | CENTER [address] | | | | | | [place] | | | | | | [address] | | | | | | [phone] | | | +--------+ + + + [...]
[2019-12-04] MEDS ORDERED: BACTRIM DS TAB1 EACH PO (17:05)
== END 2019-12-04 17:20 | disposition home or self-care (01) ==
LOC: ED 15:06
DX: L03.113 Cellulitis of right upper limb (principal); I10 Essential (primary) hypertension; E11.9 Type 2 diabetes mellitus without complications; J44.9 Chronic obstructive pulmonary disease, unspecified; Z87.891 Personal history of nicotine dependence; Z88.1 Allergy status to other antibiotic agents; Z88.5 Allergy status to narcotic agent; Z88.8 Allergy status to other drugs, medicaments and biological substances; Z79.899 Other long term (current) drug therapy; Z79.84 Long term (current) use of oral hypoglycemic drugs
CPT/HCPCS: 99283

== ENCOUNTER 2020-03-05 09:18 | Emergency (ER) | payer OTHER ==
[~2020-03-05] VITALS: Ht 165.1 cm; Wt 104.3 kg
[~2020-03-05 09:18] MED LIST changes: +IBU800 MG PO
== END 2020-03-05 11:47 | disposition home or self-care (01) ==
LOC: ED 09:18
DX: F15.10 Other stimulant abuse, uncomplicated (principal); F13.10 Sedative, hypnotic or anxiolytic abuse, uncomplicated; F64.9 Gender identity disorder, unspecified; E11.9 Type 2 diabetes mellitus without complications; I10 Essential (primary) hypertension; E66.9 Obesity, unspecified; J44.9 Chronic obstructive pulmonary disease, unspecified; F17.200 Nicotine dependence, unspecified, uncomplicated; Z90.49 Acquired absence of other specified parts of digestive tract; Z88.1 Allergy status to other antibiotic agents; Z88.5 Allergy status to narcotic agent; Z88.0 Allergy status to penicillin; Z88.8 Allergy status to other drugs, medicaments and biological substances; Z79.84 Long term (current) use of oral hypoglycemic drugs; Z79.899 Other long term (current) drug therapy
CPT/HCPCS: 80053; 81001; 85025; 99284; G0480; J7030

== ENCOUNTER 2020-03-16 12:19 | Emergency (ER) | payer OTHER ==
[~2020-03-16] VITALS: Ht 165.1 cm; Wt 104.3 kg
== END 2020-03-16 15:50 | disposition home or self-care (01) ==
LOC: ED 12:19
DX: T40.1X1A Poisoning by heroin, accidental (unintentional), initial encounter (principal); E11.9 Type 2 diabetes mellitus without complications; I10 Essential (primary) hypertension; J44.9 Chronic obstructive pulmonary disease, unspecified; F17.200 Nicotine dependence, unspecified, uncomplicated; Z88.5 Allergy status to narcotic agent; Z88.1 Allergy status to other antibiotic agents; Z79.899 Other long term (current) drug therapy
CPT/HCPCS: 99284

== ENCOUNTER 2020-04-04 14:56 | Emergency (ER) | payer OTHER ==
[~2020-04-04] VITALS: Ht 165.1 cm; Wt 104.3 kg
--- OUTSIDE RECORDS SUMMARY | ~2020-04-04 | XMS | Encounter Summary ---
Demographics + + + | Address | [address] | | | [place] [address] | + + + | Home Phone | | + + + | Preferred Language | Unknown | + + + | Marital Status | | + + + | Religion Affiliation | NON | + + + | Race | or | + + + | Ethnic Group | Not or | + + + Author + + + | Author | [place] [employer] [facility] | + + + | Organization | [facility] [employer] [facility] | + + + | Address | Unknown | + + + | Phone | Unavailable | + + + Support + + +---------+ + | Name | Relationship | Address | Phone | + + +---------+ + | Ruby Au | ECON | Unknown | | + + +---------+ + Care Team Providers + +------+ + | Care Sales Representative Printing Supplies Name | Role | Phone | + +------+ + | Yeison Simms MD | PCP | Unavailable | + +------+ + Reason for Visit + + + | Reason | Comments | + + + | Stomach discomfort | | + + + Encounter Details +--------+ + + + + | Date | Type | Department | Care Team | Description | +--------+ + + + + | 08/22/ | Telephone | Neurosurgery at | Sam Pedroza MD | Stomach discomfort | | 2007 | | [facility] [address] | [address] | | | | | Ave Mailcode: CH8N | [place], [place] | | | | | [facility] | [address] | | | | | and Healing, | [phone] | | | | | [facility] | | | | | | Floor [place], [place] | | | | | | [address] | | | | | | [phone] | | | +--------+ + + + [...]
--- OUTSIDE RECORDS SUMMARY | ~2020-04-04 | XMS | Encounter Summary ---
Demographics + + + | Address | [address] | | | [place] [address] | + + + | Home Phone | | + + + | Preferred Language | Unknown | + + + | Marital Status | | + + + | Taoist Affiliation | NON | + + + | Race | or | + + + | Ethnic Group | Not or | + + + Author + + + | Author | [place] [employer] [facility] | + + + | Organization | [facility] [employer] [facility] | + + + | Address | Unknown | + + + | Phone | Unavailable | + + + Support + + +---------+ + | Name | Relationship | Address | Phone | + + +---------+ + | Ruby Au | ECON | Unknown | | + + +---------+ + Care Team Providers + +------+ + | Care Squaring Machine Operator Name | Role | Phone | + +------+ + | Yeison Simms MD | PCP | Unavailable | + +------+ + Reason for Visit + + + | Reason | Comments | + + + | Pre-op evaluation | | + + + Encounter Details +--------+---------+ + + + | Date | Type | Department | Care Team | Description | +--------+---------+ + + + | 07/22/ | Office | Neurosurgery at | Kiki Rosen, | Pseudotumor Cerebri | | 2007 | Visit | [facility] [address] | [place] | (Primary Dx) | | | | Ave Mailcode: CH8N | Neurosurgery [address] | | | | | [facility] | [address] | | | | | and Healing, | [place], [place] | | | | | Building | [address] | | | | | Floor [place], [place] | | | | | | [address] | | | | | | [phone] | | | +--------+---------+ + + + [...] + + + | Blood Pressure | 123/79 | 07/22/2008 11:36 AM | | | | | PDT | | + + + + + | Pulse | 115 | 07/22/2008 11:36 AM | | | | | PDT [...] + + + + | Weight | 109.8 kg (242 lb) | 07/22/2008 11:36 AM | | | | | PDT | | + + + + + | Height | - | - | | + + + + + | Body Mass Index | 40.27 | 05/07/2008 6:41 AM | | | | | PDT | | + + + + + documented in this encounter Progress Kiki Fallon - 07/22/2008 12:28 PM PDTThis 32 y.o. Ladjaneen comes in today for preoperative appointment. Today she feels tired but is not having headache. She does report that her CAPONE's can be quite bad, up to 10/10 in pain and last for days. She is oriented and a good historian. She is 'tired', moving slowly. On exam: CN II-XII grossly intact. Cerebellar exam normal Chest: CTA bilaterally Heart: tachycardic, rhythm normal, no m/r/g Gait normal. MS and tone normal throughout. A/P: Pseudotumor cerebrii with plan for LP shunt on 08/01. PARQ held with patient dick ball answered to her satisfaction. Consent signed and instructions given. documented in this encoun ter Plan of Treatment Not on filedocumented as of this encounter Visit Diagnoses + + | Diagnosis | + + | Pseudotumor cerebri - Primary Benign intracranial hypertension | + + documented in this encounter"
--- OUTSIDE RECORDS SUMMARY | ~2020-04-04 | XMS | Encounter Summary ---
Demographics + + + | Address | [address] | | | [place] [address] | + + + | Home Phone | | + + + | Preferred Language | Unknown | + + + | Marital Status | | + + + | Orthodox Affiliation | Unknown | + + + | Race | Unknown | + + + | Ethnic Group | Unknown | + + + Author + + + | Author | [facility] | | | and [place] | + + + | Organization | [facility] | | | and [place] | [...] Team Providers + +------+ + | Care Bundle Collector Name | Role | Phone | + +------+ + PCP | Unavailable | + +------+ + Encounter Details +--------+ + + + + | Date | Type | Department | Care Team | Description | +--------+ + + + + | 10/20/ | Hospital | [facility] | | | | 1999 | Encounter | MED CTR EMERGENCY | | | | | | CENTER [address] | | | | | | [place] | | | | | | [address] | | | | | | [phone] | | | +--------+ + + + [...]
--- OUTSIDE RECORDS SUMMARY | ~2020-04-04 | XMS | Encounter Summary ---
Demographics + + + | Address | [address] | | | [place] [address] | + + + | Home Phone | | + + + | Preferred Language | Unknown | + + + | Marital Status | | + + + | Anglican Affiliation | Unknown | + + + | Race | Unknown | + + + | Ethnic Group | Unknown | + + + Author + + + | Author | [facility] | | | and [place] | + + + | Organization | [facility] | | | and [place] [...] Team Providers + +------+ + | Care Surgical Instrument Maker Name | Role | Phone | + +------+ + PCP | Unavailable | + +------+ + Encounter Details +--------+ + + + + | Date | Type | Department | Care Team | Description | +--------+ + + + + | 07/14/ | Hospital | [facility] | | | | 1998 | Encounter | MED CTR EMERGENCY | | | | | | CENTER [address] | | | | | | [place] | | | | | | [address] | | | | | | [phone] | | | +--------+ + + + [...]
--- OUTSIDE RECORDS SUMMARY | ~2020-04-04 | XMS | Encounter Summary ---
Demographics + + + | Address | [address] | | | [place] [address] | + + + | Home Phone | | + + + | Preferred Language | Unknown | + + + | Marital Status | | + + + | Yarsanism Affiliation | Unknown | + + + | Race | Unknown | + + + | Ethnic Group | Unknown | + + + Author + + + | Author | [facility] | | | and [place] | + + + | Organization | [facility] | | | and [...] Team Providers + +------+ + | Care Hitch Technician Name | Role | Phone | + +------+ + PCP | Unavailable | + +------+ + Encounter Details +--------+ + + + + | Date | Type | Department | Care Team | Description | +--------+ + + + + | 08/03/ | Hospital | [facility] | | | | 1990 | Encounter | MED CTR EMERGENCY | | | | | | CENTER [address] | | | | | | [place] | | | | | | [address] | | | | | | [phone] | | | +--------+ + + + [...]
--- OUTSIDE RECORDS SUMMARY | ~2020-04-04 | XMS | Encounter Summary ---
Demographics + + + | Address | [address] | | | [place] [address] | + + + | Home Phone | | + + + | Preferred Language | Unknown | + + + | Marital Status | | + + + | Adventism Affiliation | Unknown | + + + | Race | Unknown | + + + | Ethnic Group | Unknown | + + + Author + + + | Author | [facility] | | | and [place] | + + + | Organization | [facility] | | | and [place] [...] Team Providers + +------+ + | Care X Ray Tech Name | Role | Phone | + +------+ + PCP | Unavailable | + +------+ + Encounter Details +--------+ + + + + | Date | Type | Department | Care Team | Description | +--------+ + + + + | 03/29/ | Hospital | [facility] | | | | 2006 | Encounter | MED CTR XRAY [address] | | | | | | [address] [place] | | | | | | [place] [address] | | | | | | [phone] | | | +--------+ + + + [...]
--- OUTSIDE RECORDS SUMMARY | ~2020-04-04 | XMS | Encounter Summary ---
Demographics + + + | Address | [address] | | | [place] [address] | + + + | Home Phone [...] + + + | Author | [facility] | + + + | Organization | [facility] [employer] [facility] | + + + | Address | Unknown | + + + | Phone | Unavailable | + + + Support + + +---------+ + | Name | Relationship | Address | Phone | + + +---------+ + | Ruby Au | ECON | Unknown | | + + +---------+ + Care Team Providers + +------+ + | Care Vendor Analyst Name | Role | Phone | + +------+ + | Pedro Luis Sams MD | PCP | | + +------+ + Encounter Details +--------+ + + + + | Date | Type | Department | Care Team | Description | +--------+ + + + + | 08/31/ | Telephone | [facility] | Leticia Pitts MD | | | 2010 | | [place] | | | | | | [facility] at [facility] [address] | | | | | | [address] Mailcode: | | | | | | [id number] | [facility], | | | | | | [facility] | | | | | | Floor [place], [place] | | | | | | [address] | | | | | | [phone] | | | +--------+ + + + [...]
--- OUTSIDE RECORDS SUMMARY | ~2020-04-04 | XMS | Encounter Summary ---
Demographics + + + | Address | [address] | | | [place] [address] | + + + | Home Phone | | + + + | Preferred Language | Unknown | + + + | Marital Status | | + + + | Yarsani Affiliation | NON | + + + | Race | or | + + + | Ethnic Group | Not or | + + + Author + + + | Author | [place] [facility] | + + + | Organization | [facility] | [...] Team Providers + +------+ + | [employer] Coordinator Name | Role | Phone | + +------+ + | Abe Heard MD | PCP | | + +------+ + Reason for Referral Diagnostic Testing (Urgent) +--------+--------+ + + + + | Status | Reason | Specialty | Diagnoses / | Referred By | Referred To | | | | | Procedures | Contact | Contact | +--------+--------+ + + + + | Closed | | Radiology | Procedures | John | [address] Scan | | | | | CT HEAD WO | MD Christiano | [facility] [address] | | | | | CONTRAST | [address] | [address] | | | | | | Dilshad | [address] | | | | | | [address] | [facility], | | | | | | [place], [place] | 10th Floor | | | | | | [address] | [place], [place] | | | | | | Phone: | [address] | | | | | | [phone] | Phone: | | | | | | Fax: | [phone] | | | | | | [phone] | Fax: | | | | | | | [phone] | +--------+--------+ + + + + Reason for Visit + + + | Reason | Comments | + + + | 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 | | + + + Encounter Details +--------+ + + + + | Date | Type | Department | Care Team | Description | +--------+ + + + + | 03/13/ | Emergency | [facility] | Mack Castrejon MD | | | 2012 | | Department [address] | [address] | | | | | [address] | [address] | | | | | [facility] | [place], [place] | | | | | [place], [place] | [address] | | | | | [address] | [phone] | | | | | [phone] | | | | | | | Ru Roque MD | | +--------+ + + + + [...] + + + | Blood Pressure | 120/59 | 03/13/2013 7:00 PM | | | | | PDT | | + + + + + | Pulse | 92 | 03/13/2013 6:15 PM | | | | | PDT | | + + + + + | Temperature | 37 C (98.6 F) | 03/13/2013 11:48 AM | | | | | PDT | | + + + + + | Respiratory Rate | 20 | 03/13/2013 6:15 PM | | | | | PDT | | + + + + + | Oxygen Saturation | 89% | 03/13/2013 6:02 PM | | | | | PDT | | + + + + + | Inhaled Oxygen | - | - | | | Concentration | | | | + + + + + | Weight | 136.5 kg (301 lb) | 03/13/2013 11:48 AM | | | | | PDT | | + + + + + | Height | - | - | | + + + + + | Body Mass Index | 50.09 | 09/17/2011 11:02 AM | | | | | PDT | | + + + + + documented in this encounter Discharge Instructions Instructions Amol Altman - 03/13/2013Formatting of this note might be different from the irma aviva. Thanks for coming to [facility] today. Your head CT was negative for any new findings. The neurosurgeon did not think there was a malfunction in your shunt. The marketing programs specialist recommends you taking Diomox again and follow up in 1 week at [facility]. Please follow up with your doctor. Rest, ice, and ibuprofen or tylenol for pain. Return to ER for new or worsening symptoms that concern you including fever, nausea/vomitin g, increasing pain, chest pain, shortness of breath, increasing headache or confusion. Call your doctor or return to the ER if your symptoms worsen or change or you have any othe r concerns. Further evaluation may be necessary to conduct tests if your symptoms persist, worsen or change. It is very important you follow up with a physician. IF YOU DO NOT HAVE A DOCTOR YOU MAY TRY THE FOLLOWING: Get plenty of rest, drink lots of water, eat properly and take your medications as prescrib ed. It is important to note: The examination and treatment you have received in the Emergency D epartment has been rendered on an emergency basis only and not intended to be a substitute f or complete medical care. It is recommended that you let your personal physician follow up and check you again, Report to them any new or remaining problems, because it is impossible to recognize and treat all elements of injury or illness in a single emergency visit.The fi nal results of all blood work, x-rays, and other studies obtained while you are in the Emerg ency Department (ED) are not always immediately available to the ED doctor before the patien t leaves the ED. For example, a radiologist often rereads x-rays. Occasionally, there are salinas btle abnormalities present on your studies that will require further evaluation, testing or treatment, even if they are not related to today's emergency. We advise you to follow up wit h your primary care physician to review the final results of your studies. Narcotic pain medicine, anxiety medications and muscle relaxers can not be re-filled by the emergency department. If you need these medications please see your primary care provider (PCP) or the physician you were given to for follow up. IMPORTANT NOTICE ABOUT YOUR MEDICATIONS: Although our computerized discharge papers automatically instruct you to resume your daily medications, many patients take medications that are not routinely prescribed by emergency p hysicians. While your emergency medicine provider will make every effort to make sure any ne w medications prescribed are safe to take with your daily medications, we would like you to call your prescribing physician to confirm that you should continue all of your medications at the dosages listed on this discharge paperwork. documented in this encounter Medications at Time [...] | IP CONSULT TO | Urgent | 03/13/2013 | | | | OPHTHALMOLOGY (ADULT | | 8:47 PM | | | | & PEDS) | | PDT | | | + +--------+ + + + | UA DIPSTICK 10 DIP | Urgent | 03/13/2013 | | Results for this | | W/O MICRO | | 5:25 PM | | procedure are in the | | (AUTOMATED), POC | | PDT | | results section. | + +--------+ + + + | CT HEAD WO CONTRAST | Urgent | 03/13/2013 | | Results for this | | | | 5:24 PM | | procedure are in the | | | | PDT | | results section. | + +--------+ + + + | URINE, MICROSCOPIC | Urgent | 03/13/2013 | | Results for this | | EXAM | | 5:02 PM | | procedure are in the | | | | PDT | | results section. | + +--------+ + + + | 12 LEAD ECG | Urgent | 03/13/2013 | | Results for this | | | | 12:02 PM | | procedure are in the | | | | PDT | | results section. | + +--------+ + + + | TROPONIN, POC | Urgent | 03/13/2013 | | Results for this | | | | 11:55 AM | | procedure are in the | | | | PDT | | results section. | + +--------+ + + + | NT-PRO BNP | Urgent | 03/13/2013 | | Results for this | | | | 11:52 AM | | procedure are in the | | | | PDT | | results section. | + +--------+ + + + | CBC AND AUTO DIFF | Urgent | 03/13/2013 | | Results for this | | | | 11:52 AM | | procedure are in the | | | | PDT | | results section. | + +--------+ + + + | INR | Urgent | 03/13/2013 | | Results for this | | | | 11:52 AM | | procedure are in the | | | | PDT | | results section. | + +--------+ + + + | CBC, WITH | Urgent | 03/13/2013 | | Results for this | | DIFFERENTIAL | | 11:52 AM | | procedure are in the | | | | PDT | | results section. | + +--------+ + + + | COMPLETE METABOLIC | Urgent | 03/13/2013 | | Results for this | | SET | | 11:52 AM | | procedure are in the | | (NA,K,CL,CO2,BUN,CRE | | PDT | | results section. | | AT,GLUC,CA,AST,ALT,B | | | | | | CHATA TOTAL,ALK | | | | | | PHOS,ALB,PROT TOTAL) | | | | | + +--------+ + + + | RAINBOW HOLD TUBE - | Urgent | 03/13/2013 | | | | RED TOP | | 11:52 AM | | | | | | PDT | | | + +--------+ + + + | TSH | Urgent | 03/13/2013 | | Results for this | | | | 11:52 AM | | procedure are in the | | | | PDT | | results section. | + +--------+ + + + | CARDIOLOGY | | 03/13/2013 | | Results for this | | | | 12:00 AM | | procedure are in the | | | | PDT | | results section. | + +--------+ + + + documented in this encounter Results UA 10 DIP, POC (03/13/2013 5:25 PM PDT) + + + + + + | Component | Value | Ref Range | Performed | Pathologist | | | | | At | Signature | + + + + + + | COLOR (UA | Yellow | | [facility] - | | | DIP), POC | | | [facility] | | | | | | [place] | | | | | | OF CARE | | | | | | TESTS | | + + + + + + | APPEARANCE | Clear | | [facility] - | | | (UA DIP), | | | [facility] | | | POC | | | [place] | | | | | | OF CARE | | | | | | TESTS | | + + + + + + | LEUKOCYTES | Negative | Negative | [facility] - | | | (UA DIP), | | | [facility] | | | POC | | | [place] | | | | | | OF CARE | | | | | | TESTS | | + + + + + + | NITRITES | Negative | Negative | [facility] - | | | (UA DIP), | | | [facility] | | | POC | | | [place] | | | | | | OF CARE | | | | | | TESTS | | + + + + + + | UROBILINOGE | 0.2 | 0.2 - 1.0 | [facility] - | | | N (UA DIP), | | E.U./dL | [facility] | | | POC | | | [facility] | | | | | | OF CARE | | | | | | TESTS | | + + + + + + | PROTEIN (UA | Negative | Neg - Trace | [facility] - | | | DIP), POC | | mg/dL | [facility] | | | | | | [place], POINT | | | | | | OF CARE | | | | | | TESTS | | + + + + + + | PH (UA | 6.5 | 5.0 - 8.0 | [facility] - | | | DIP), POC | | | [facility] | | | | | | [place], POINT | | | | | | OF CARE | | | | | | TESTS | | + + + + + + | BLOOD (UA | Moderate (A) | Negative | [facility] - | | | DIP), POC | | | [facility] | | | | | | [place], POINT | | | | | | OF CARE | | | | | | TESTS | | + + + + + + | SPECIFIC | 1.015 | 1.005 - 1.030 | [facility] - | | | GRAVITY (UA | | | [facility] | | | DIP), POC | | | [place] POINT | | | | | | OF CARE | | | | | | TESTS | | + + + + + + | KETONES (UA | Negative | Negative mg/dL | [facility] - | | | DIP), POC | | | [facility] | | | | | | [place] POINT | | | | | | OF CARE | | | | | | TESTS | | + + + + + + | BILIRUBIN | Negative | Negative | [facility] - | | | (UA DIP), | | | [facility] | | | POC | | | [place] | | | | | | OF CARE | | | | | | TESTS | | + + + + + + | GLUCOSE (UA | Negative | Negative - 100 | [facility] - | | | DIP), POC | | mg/dL | [facility] | | | | | | [place] | | | | | | OF CARE | | | | | | TESTS | | + + + + + + + + | Specimen | + + | Urine | + + + + + + + | Performing | Address | City/State/Zipcode | Phone Number | | Organization | | | | + + + + + | [facility] | [address] | [place], [place] | | | [facility] | [address] | [address] | | | TESTS | | | | + + + + + CT HEAD WO CONTRAST (03/13/2013 5:24 PM PDT) + + + + + + | Component | Value | Ref Range | Performed | Pathologist | | | | | At | Signature | + + + + + + | CT HEAD WO | EXAM: CT HEAD WITHOUT | | | | | CONTRAST | CONTRAST HISTORY: | | | | | | Headache COMPARISON: | | | | | | 09/05/06 TECHNIQUE: CT | | | | | | images of the brain from | | | | | | skull base to vertex | | | | | | wereobtained without | | | | | | contrast. FINDINGS: | | | | | | Brain: No acute | | | | | | intracranial | | | | | | abnormality. Ventricles | | | | | | are withinnormal limits | | | | | | in size and morphology. | | | | | | There is no evidence | | | | | | ofhemorrhage, mass or | | | | | | acute infarction. Soft | | | | | | tissues: Unremarkable | | | | | | Skull/Skull base: No | | | | | | fractures or destructive | | | | | | lesions. Mastoids | | | | | | andmiddle ears are | | | | | | unremarkable. | | | | | | Face/Orbits: Visualized | | | | | | portions are | | | | | | unremarkable. Paranasal | | | | | | Sinuses: Visualized | | | | | | portions are | | | | | | unremarkable. | | | | | | IMPRESSION:No acute | | | | | | intracranial | | | | | | abnormality. Attending | | | | | | Radiologists: KIP | | | | | | ELOINA ROWLEYuthor: | | | | | | KIP ROWLEY MD I | | | | | | have personally viewed | | | | | | this procedure/exam, | | | | | | reviewed this report,and | | | | | | made changes to it | | | | | | where appropriate. | | | | | | Final/Electronically | | | | | | mannie / KIP | | | | | | AMRIK 03/13/2013 | | | | | | 18:37 PM | | | | + + + + + + + + | Specimen | + + | | + + + +---------+ + + | Performing | Address | City/State/Zipcode | Phone Number | | Organization | | | | + +---------+ + + | [facility] | | | | | RADIOLOGY | | | | + +---------+ + + URINE, MICROSCOPIC EXAM (03/13/2013 5:02 PM PDT) + +---------+ + + + | Component | Value | Ref Range | Performed | Pathologist | | | | | At | Signature | + +---------+ + + + | RED CELLS | <1 | 0 - 3 /hpf | [facility] | | | | | | LABORATORY | | | | | | SERVICES, | | | | | | CORE | | + +---------+ + + + | WHITE CELLS | <1 | 0 - 5 /hpf | [facility] | | | | | | LABORATORY | | | | | | SERVICES, | | | | | | CORE | | + +---------+ + + + | BACTERIA | None | None /hpf | [facility] | | | | | | LABORATORY | | | | | | SERVICES, | | | | | | CORE | | + +---------+ + + + | YEAST (LAB) | None | None /hpf | [facility] | | | | | | LABORATORY | | | | | | SERVICES, | | | | | | CORE | | + +---------+ + + + | SQUAMOUS | Few (A) | None /hpf | [facility] | | | EPITHELIAL | | | LABORATORY | | | | | | SERVICES, | | | | | | CORE | | + +---------+ + + + | MUCOUS | None | None /hpf | [facility] | | | | | | LABORATORY | | | | | | SERVICES, | | | | | | CORE | | + +---------+ + + + | TRICHOMONAS | None | None /hpf | [facility] | | | | | | LABORATORY | | | | | | SERVICES, | | | | | | CORE | | + +---------+ + + + | NON-SQUAMOU | None | None /hpf | [facility] | | | S EPITH | | | LABORATORY | | | | | | SERVICES, | | | | | | CORE | | + +---------+ + + + | HYALINE | 0 | 0 - 2 /lpf | [facility] | | | CASTS | | | LABORATORY | | | | | | SERVICES, | | | | | | CORE | | + +---------+ + + + | GRANULAR | 0 | 0 - 2 /lpf | [facility] | | | CASTS | | | LABORATORY | | | | | | SERVICES, | | | | | | CORE | | + +---------+ + + + | CELLULAR | 0 | <=0 /lpf | [facility] | | | CASTS | | | LABORATORY | | | | | | SERVICES, | | | | | | CORE | | + +---------+ + + + | TRIPLE P04 | None | None /hpf | [facility] | | | CRYSTALS | | | LABORATORY | | | | | | SERVICES, | | | | | | CORE | | + +---------+ + + + | CALCIUM | None | None /hpf | [facility] | | | OXALATE | | | LABORATORY | | | REED | | | SERVICES, | | | | | | CORE | | + +---------+ + + + | URIC ACID | None | None /hpf | [facility] | | | CRYSTALS | | | LABORATORY | | | | | | SERVICES, | | | | | | CORE | | + +---------+ + + + | AMORPHOUS | None | None /hpf | [facility] | | | CRYSTALS | | | LABORATORY | | | | | | SERVICES, | | | | | | CORE | | + +---------+ + + + + + | Specimen | + + | Urine - Urine | + + + + + + + | Performing | Address | City/State/Zipcode | Phone Number | | Organization | | | | + + + + + | [facility] | [address] | [place] [address] | | | SERVICES, CORE | [address] | | | + + + + + 12 LEAD ECG (03/13/2013 12:02 PM PDT) + + + + + + | Component | Value | Ref Range | Performed | Pathologist | | | | | At | Signature | + + + + + + | VENTRICULAR | 97 | BPM | [facility] | | | RATE | | | OF | | | | | | CARDIOLOGY | | + + + + + + | ATRIAL RATE | 97 | BPM | [facility] | | | | | | OF | | | | | | CARDIOLOGY | | + + + + + + | P-R | 156 | ms | [facility] | | | INTERVAL | | | OF | | | | | | CARDIOLOGY | | + + + + + + | QRS | 80 | ms | [facility] | | | DURATION | | | OF | | | | | | CARDIOLOGY | | + + + + + + | QT | 362 | ms | [facility] | | | | | | OF | | | | | | CARDIOLOGY | | + + + + + + | QTC | 459 | ms | [facility] | | | | | | OF | | | | | | CARDIOLOGY | | + + + + + + | P AXIS | 38 | degrees | [facility] | | | | | | OF | | | | | | CARDIOLOGY | | + + + + + + | R AXIS | 41 | degrees | [facility] | | | | | | OF | | | | | | CARDIOLOGY | | + + + + + + | T AXIS | 43 | degrees | [facility] | | | | | | OF | | | | | | CARDIOLOGY | | + + + + + + | EKG | Normal sinus | | [facility] | | | DIAGNOSIS | rhythmNormal ECG"I have | | OF | | | | personally interpreted | | CARDIOLOGY | | | | this report, either | | | | | | alone or with a | | | | | | trainee."Confirmed by | | | | | | CHRISTIANO TORRES ([id number]) | | | | | | on 03/14/2013 10:35:55 AM | | | | + + + + + + + + | Specimen | + + | | + + + + + | Narrative | Performed At | + + + | Please click | [facility] DEPT OF | | on view image for the detailed interpretation from [facility] results. | CARDIOLOGY | + + + + + + + + | Performing | Address | City/State/Zipcode | Phone Number | | Organization | | | | + + + + + | [facility] | [address] | [place], [place] | | | CARDIOLOGY | [address] | [address] | | + + + + + TROPONIN, POC (03/13/2013 11:55 AM PDT) + +-------+ + + + | Component | Value | Ref Range | Performed | Pathologist | | | | | At | Signature | + +-------+ + + + | TROPONIN, | 0.00 | 0.0 - 0.49 | [facility] - | | | POC | | ng/mL | [facility] | | | | | | [facility] | | | | | | OF CARE | | | | | | TESTS | | + +-------+ + + + + + | Specimen | + + | | + + + + + + + | Performing | Address | City/State/Zipcode | Phone Number | | Organization | | | | + + + + + | [facility] | [address] | [place], [place] | | | [facility] | [facility] | [address] | | | TESTS | | | | + + + + + CBC AND AUTO DIFF (03/13/2013 11:52 AM PDT) + + + + + + | Component | Value | Ref Range | Performed | Pathologist | | | | | At | Signature | + + + + + + | WBC COUNT | 9.3 | 4.4 - 11.0 K/cu | [facility] | | | | | mm | LABORATORY | | | | | | SERVICES, | | | | | | CORE | | + + + + + + | RED CELL | 4.10 | 4.00 - 5.20 | [facility] | | | COUNT | | M/cu mm | LABORATORY | | | | | | SERVICES, | | | | | | CORE | | + + + + + + | HEMOGLOBIN | 11.5 (L) | 12.0 - 16.0 | [facility] | | | | | g/dL | LABORATORY | | | | | | SERVICES, | | | | | | CORE | | + + + + + + | HEMATOCRIT | 35.3 (L) | 36.0 - 46.0 % | [facility] | | | | | | LABORATORY | | | | | | SERVICES, | | | | | | CORE | | + + + + + + | MCV | 86.1 | 80.0 - 96.0 fL | [facility] | | | | | | LABORATORY | | | | | | SERVICES, | | | | | | CORE | | + + + + + + | MCHC | 32.6 (L) | 33.4 - 35.5 | [facility] | | | | | g/dL | LABORATORY | | | | | | SERVICES, | | | | | | CORE | | + + + + + + | RDW | 16.7 (H) | 11.5 - 15.0 % | [facility] | | | | | | LABORATORY | | | | | | SERVICES, | | | | | | CORE | | + + + + + + | PLATELET | 204 | 150 - 400 K/cu | [facility] | | | COUNT | | mm | LABORATORY | | | | | | SERVICES, | | | | | | CORE | | + + + + + + | NEUTROPHIL | 59 | 50 - 70 % | [facility] | | | % | | | LABORATORY | | | | | | SERVICES, | | | | | | CORE | | + + + + + + | LYMPHOCYTE | 31 | 18 - 42 % | [facility] | | | % | | | LABORATORY | | | | | | SERVICES, | | | | | | CORE | | + + + + + + | MONOCYTE % | 6 | 2 - 8 % | [facility] | | | | | | LABORATORY | | | | | | SERVICES, | | | | | | CORE | | + + + + + + | EOS % | 4 (H) | 1 - 3 % | [facility] | | | | | | LABORATORY | | | | | | SERVICES, | | | | | | CORE | | + + + + + + | BASO % | 0 | 0 - 2 % | [facility] | | | | | | LABORATORY | | | | | | SERVICES, | | | | | | CORE | | + + + + + + | NEUTROPHIL | 5.5 | 1.8 - 7.7 K/cu | [facility] | | | # | | mm | LABORATORY | | | | | | SERVICES, | | | | | | CORE | | + + + + + + | LYMPHOCYTE | 2.9 | 1.0 - 4.8 K/cu | [facility] | | | # | | mm | LABORATORY | | | | | | SERVICES, | | | | | | CORE | | + + + + + + | MONOCYTE # | 0.5 | 0.0 - 0.8 K/cu | [facility] | | | | | mm | LABORATORY | | | | | | SERVICES, | | | | | | CORE | | + + + + + + | EOS # | 0.4 | 0.0 - 0.5 K/cu | [facility] | | | | | mm | LABORATORY | | | | | | SERVICES, | | | | | | CORE | | + + + + + + | BASO # | 0.0 | 0.0 - 0.2 K/cu | [facility] | | | | | mm | LABORATORY | | | | | | SERVICES, | | | | | | CORE | | + + + + + + + + | Specimen | + + | Blood - Blood | + + + + + + + | Performing | Address | City/State/Zipcode | Phone Number | | Organization | | | | + + + + + | [facility] | [address] | [place] [address] | | | SERVICES, CORE | [address] | | | + + + + + NT-PRO BNP (03/13/2013 11:52 AM PDT) + +-------+ + + + | Component | Value | Ref Range | Performed | Pathologist | | | | | At | Signature | + +-------+ + + + | NT-PRO BNP | 102 | <125 pg/mL | [facility] | | | | | | LABORATORY | | | | | | SERVICES, | | | | | | CORE | | + +-------+ + + + + + | Specimen | + + | Blood - Blood | + + + + + + + | Performing | Address | City/State/Zipcode | Phone Number | | Organization | | | | + + + + + | [facility] [employer] | [address] | [place] [address] | | | SERVICES, CORE | [address] | | | + + + + + COMPLETE METABOLIC SET (NA,K,CL,CO2,BUN,CREAT,GLUC,CA,AST,ALT,BILI TOTAL,ALK PHOS,ALB,PROT TOTAL) (03/13/2013 11:52 AM PDT) + +---------+ + + + | Component | Value | Ref Range | Performed | Pathologist | | | | | At | Signature | + +---------+ + + + | GLUCOSE, | 119 (H) | 60 - 99 mg/dL | [facility] | | | PLASMA | | | LABORATORY | | | (LAB) | | | SERVICES, | | | | | | CORE | | + +---------+ + + + | BUN, PLASMA | 10 | 6 - 20 mg/dL | [facility] | | | (LAB) | | | LABORATORY | | | | | | SERVICES, | | | | | | CORE | | + +---------+ + + + | CREATININE | 0.83 | 0.60 - 1.10 | [facility] | | | PLASMA | | mg/dL | LABORATORY | | | (LAB) | | | SERVICES, | | | | | | CORE | | + +---------+ + + + | EGFR | >60 | >60 mL/min | [facility] | | | - | | | LABORATORY | | | UZBEK | | | SERVICES, | | | | | | CORE | | + +---------+ + + + | EGFR NON | >60 | >60 mL/min | [facility] | | | -MAGALIE | | | LABORATORY | | | RICAN | | | SERVICES, | | | | | | CORE | | + +---------+ + + + | SODIUM, | 141 | 136 - 145 | [facility] | | | PLASMA | | mmol/L | LABORATORY | | | (LAB) | | | SERVICES, | | | | | | CORE | | + +---------+ + + + | POTASSIUM, | 3.7 | 3.4 - 5.0 | [facility] | | | PLASMA | | mmol/L | LABORATORY | | | (LAB) | | | SERVICES, | | | | | | CORE | | + +---------+ + + + | CHLORIDE, | 103 | 97 - 108 mmol/L | [facility] | | | PLASMA | | | LABORATORY | | | (LAB) | | | SERVICES, | | | | | | CORE | | + +---------+ + + + | TOTAL CO2, | 32 | 21 - 32 mmol/L | [facility] | | | PLASMA | | | LABORATORY | | | (LAB) | | | SERVICES, | | | | | | CORE | | + +---------+ + + + | CALCIUM, | 9.1 | 8.6 - 10.2 | [facility] | | | PLASMA | | mg/dL | LABORATORY | | | (LAB) | | | SERVICES, | | | | | | CORE | | + +---------+ + + + | BILIRUBIN | 0.2 (L) | 0.3 - 1.2 mg/dL | [facility] | | | TOTAL | | | LABORATORY | | | | | | SERVICES, | | | | | | CORE | | + +---------+ + + + | TOTAL | 6.9 | 6.1 - 7.9 g/dL | [facility] | | | PROTEIN, | | | LABORATORY | | | PLASMA | | | SERVICES, | | | (LAB) | | | CORE | | + +---------+ + + + | ALBUMIN, | 3.2 (L) | 3.5 - 4.7 g/dL | [facility] | | | PLASMA | | | LABORATORY | | | (LAB) | | | SERVICES, | | | | | | CORE | | + +---------+ + + + | ALK PHOS | 63 | 42 - 98 U/L | [facility] | | | | | | LABORATORY | | | | | | SERVICES, | | | | | | CORE | | + +---------+ + + + | AST(SGOT) | 29 | 15 - 41 U/L | [facility] | | | | | | LABORATORY | | | | | | SERVICES, | | | | | | CORE | | + +---------+ + + + | ALT (SGPT) | 23 | 12 - 60 U/L | [facility] | | | | | | LABORATORY | | | | | | SERVICES, | | | | | | CORE | | + +---------+ + + + | ANION | 8 | 4 - 11 mmol/L | [facility] | | | GAP(ALB | | | LABORATORY | | | CORRECTED) | | | SERVICES, | | | | | | CORE | | + +---------+ + + + | POTASSIUM | No Hemo | | [facility] | | | CMNT | | | LABORATORY | | | | | | SERVICES, | | | | | | CORE | | + +---------+ + + + | BILI T CMNT | No Hemo | | [facility] | | | | | | LABORATORY | | | | | | SERVICES, | | | | | | CORE | | + +---------+ + + + | AST CMNT | No Hemo | | [facility] | | | | | | LABORATORY | | | | | | SERVICES, | | | | | | CORE | | + +---------+ + + + | ANION GAP | 6 | mmol/L | [facility] | | | | | | LABORATORY | | | | | | SERVICES, | | | | | | CORE | | + +---------+ + + + + + | Specimen | + + | Blood - Blood | + + + + + | Narrative | Performed At | + + + | GFR is estimated using the MDRD equation recommended by the | [facility] | | National Kidney Disease Education Program. Estimated GFR | LABORATORY | | Interpretive Information: <60 mL/min/1.73 sq m | SERVICES, CORE | | Chronic Kidney Disease <15 mL/min/1.73 sq m | | | Kidney Failure Estimated GFR greater that 60 mL/min/1.73 sq m is of | | | limited clinical value. The MDRD equation is not valid in the | | | following situations: - Patients under 18 years of age - Severe | | | malnutrition or obesity - Vegetarian diet - Rapidly changing kidney | | | function | | + + + + + + + + | Performing | Address | City/State/Zipcode | Phone Number | | Organization | | | | + + + + + | [facility] | [address] | [place] [address] | | | SERVICES, CORE | [address] | | | + + + + + INR (03/13/2013 11:52 AM PDT) + +-------+ + + + | Component | Value | Ref Range | Performed | Pathologist | | | | | At | Signature | + +-------+ + + + | INR | 0.95 | 0.90 - 1.20 INR | [facility] | | | | | | LABORATORY | | | | | | SERVICES, | | | | | | CORE | | + +-------+ + + + + + | Specimen | + + | Blood - Blood | + + + + + | Narrative | Performed At | + + + | INR Therapeutic ranges for full anticoagulation: INR for | [facility] | | Venous Thromboembolism (2.0 - 3.0) INR INR for | LABORATORY | | most patients with mech. valves (2.5 - 3.5) INR | SERVICES, CORE | + + + + + + + + | Performing | Address | City/State/Zipcode | Phone Number | | Organization | | | | + + + + + | [employer] | [address] | [place] [address] | | | SERVICES, CORE | [address] | | | + + + + + TSH (03/13/2013 11:52 AM PDT) + + + + + + | Component | Value | Ref Range | Performed | Pathologist | | | | | At | Signature | + + + + + + | TSH | 2.66Comment: Normal TSH | 0.34 - 5.60 | [place] - | | | | value in : | mcIU/mL | [facility] - | | | | 0.5-2.5. uIU/ml | | [place] | | + + + + + + + + | Specimen | + + | Blood - Blood | + + + + + + + | Performing | Address | City/State/Zipcode | Phone Number | | Organization | | | | + + + + + | [place] [facility] | [address] | [place] [address] | | | [place] | | | | + + + + + RAINBOW HOLD TUBE - RED TOP (03/13/2013 11:52 AM PDT) + + | Specimen | + + | Blood - Blood | + + + + + + + | Performing | Address | City/State/Zipcode | Phone Number | | Organization | | | | + + + + + | [facility] | [address] | [place] [address] | | | SERVICES, CORE | [address] | | | + + + + + CARDIOLOGY (03/13/2013 12:00 AM PDT) + + + | Narrative | Performed At | + + + | | | | | | + + + + + | Procedure Note | + + | Jonnie Crum - 03/19/2013 8:40 AM PDT | + + documented in this encounter Visit Diagnoses + + | Diagnosis | + + | Pseudotumor cerebri - Primary Benign intracranial hypertension | + + | Optic papilla edema Papilloedema, unspecified | + + documented in this encounter Administered Medications + +---------+ +------+--------+------+ | Medication Order | MAR | Action | Dose | Rate | Site | | | Action | Date | | | | + +---------+ +------+--------+------+ | HYDROmorphone (aka DILAUDID) | IV Push | 03/13/20 | 1 mg | mL/hr | | | injection 1 mg 1 mg, | | 13 5:15 | | | | | intravenous, ONCE, 1 dose, Tue | | PM PDT | | | | | 03/13/13 at 1730 | | | | | | + +---------+ +------+--------+------+ +---+---+ | | | +---+---+ + +---------+ +------+--------+---+ | HYDROmorphone (aka DILAUDID) | IV Push | 03/13/20 | 1 mg | mL/hr | | | injection 1 mg 1 mg, | | 13 7:36 | | | | | intravenous, EVERY 1 HOUR | | PM PDT | | | | | NEEDED, Starting Tue03/13/13 at | | | | | | | 1746, Until Tue03/14/13 at 0307, | | | | | | | moderate pain | | | | | | + +---------+ +------+--------+---+ +---------+ +------+--------+---+ | IV Push | 03/13/20 | 1 mg | mL/hr | | | | 13 6:01 | | | | | | PM PDT | | | | +---------+ +------+--------+---+ +---+---+ | | | +---+---+ + +---------+ + +--------+---+ | NaCl 0.9 % IV 1,000 mL, | New Bag | 03/13/20 | 1,000 mL | mL/hr | | | intravenous, ONCE, 1 dose, Tue | | 13 6:04 | | | | | 03/13/13 at 1830 | | PM PDT | | | | + +---------+ + +--------+---+ +---+---+ | | | +---+---+ + + + +---------+---+---+ | nicotine (aka NICOTROL) 21 | Applied | 03/13/20 | 1 patch | | | | mg/24 hr patch 1 Patch 1 patch, | Patch | 13 5:17 | | | | | transdermal, ONCE, 1 dose, Tue | | PM PDT | | | | | 03/13/13 at 1745 | | | | | | + + + +---------+---+---+ +---+---+ | | | +---+---+ + +---------+ +------+--------+---+ | ondansetron (aka ZOFRAN) | IV Push | 03/13/20 | 4 mg | mL/hr | | | injection 4 mg 4 mg, | | 13 6:04 | | | | | intravenous, ONCE, 1 dose, [place] | | PM PDT | | | | | 03/13/13 at 1830 | | | | | | + +---------+ +------+--------+---+ +---+---+ | | | +---+---+ documented in this encounter
--- OUTSIDE RECORDS SUMMARY | ~2020-04-04 | XMS | Encounter Summary ---
Demographics + + + | Address | [address] | | | [place] [address] | + + + | Home Phone [...] + + + | Author | [place] [employer] [facility] | + + + | Organization | [facility] [employer] [facility] | + + + | Address | Unknown | + + + | Phone | Unavailable | + + + Support + + +---------+ + | Name | Relationship | Address | Phone | + + +---------+ + | Ruby Au | ECON | Unknown | | + + +---------+ + Care Team Providers + +------+ + | Care Medical Manager Name | Role | Phone | [...] | +--------+ + + + + | 02/15/ | Telephone | [facility] | [address] | Refill Request | | 2006 | | [place] | [address] | | | | | Oculoplastics at | [address] [place], [place] | | | | | [facility] [address] | [address] | | | | | [address] | | | | | | [facility] [place] | | | | | | [facility], [address] [place] [address] | | | | | | [place] [address] | | | | | | [phone] | | | +--------+ + + + [...]
--- OUTSIDE RECORDS SUMMARY | ~2020-04-04 | XMS | Encounter Summary ---
Demographics + + + | Address | [address] | | | [place] [address] | + + + | Home Phone [...] + | Organization | [facility] | | | and [place] [...] Providers + +------+ + | Care Assistant Site Manager Name | Role | Phone | + +------+ + PCP | Unavailable | + +------+ + Encounter Details +--------+ + + + + | Date | Type | Department | Care Team | Description | +--------+ + + + + | 10/02/ | Hospital | [facility] | | | | 1991 | Encounter | [facility] | | | | | | [facility]ALTH [facility] [address] | | | | | | [place], | | | | | | [place] [address] | | | | | | [phone] | | | +--------+ + + + [...]
--- OUTSIDE RECORDS SUMMARY | ~2020-04-04 | XMS | Encounter Summary ---
Demographics + + + | Address | [address] | | | [place] [address] | + + + | Home Phone [...] + + + | Author | [place] [employer] [facility] | + + + | Organization | [facility] | + + + | Address | Unknown | + + + | Phone | Unavailable | + + + Support + + +---------+ + | Name | Relationship | Address | Phone | + + +---------+ + | Ruby Au | ECON | Unknown | | + + +---------+ + Care Team Providers + +------+ + | Care Rabbet Operator Name | Role | Phone | [...] | | | Ave Mailcode: [address] | [place], [place] | | | | | [facility] | [address] | | | | | and Healing, | [phone] | | | | | [facility] | | | | | | Floor [place], [place] | | | | | | [address] | | | | | | [phone] | | | +--------+ + + + [...]
--- OUTSIDE RECORDS SUMMARY | ~2020-04-04 | XMS | Encounter Summary ---
Demographics + + + | Address | [address] | | | [place] [address] | + + + | Home Phone | | + + + | Preferred Language | Unknown | + + + | Marital Status | | + + + | Uatsdin Affiliation | Unknown | + + + | Race | Unknown | + + + | Ethnic Group | Unknown | + + + Author + + + | Author | [facility] | | | and [place] | + + + | Organization | [facility] | | | and [...] Team Providers + +------+ + | Care Overnight Caregiver Name | Role | Phone | + +------+ + PCP | Unavailable | + +------+ + Encounter Details +--------+ + + + + | Date | Type | Department | Care Team | Description | +--------+ + + + + | 07/21/ | Hospital | [facility] | | | | 1990 | Encounter | MED CTR EM[facility] | | | | | | CENTER [address] | | | | | | [place] | | | | | | [address] | | | | | | [phone] | | | +--------+ + + + [...]
--- OUTSIDE RECORDS SUMMARY | ~2020-04-04 | XMS | Encounter Summary ---
Demographics + + + | Address | [address] | | | [place] [address] | + + + | Home Phone | | + + + | Preferred Language | Unknown | + + + | Marital Status | | + + + | Roman Catholic Affiliation | Unknown | + + + | Race | Unknown | + + + | Ethnic Group | Unknown | + + + Author + + + | Author | [facility] | | | and [place] | + + + | Organization | [facility] | | | and [place] [...] Team Providers + +------+ + | Care Soda Tester Name | Role | Phone | + +------+ + PCP | Unavailable | + +------+ + Encounter Details +--------+ + + + + | Date | Type | Department | Care Team | Description | +--------+ + + + + | 07/14/ | Hospital | [facility] | | | | 1998 | Encounter | MED CTR EMERGENCY | | | | | | CENTER [address] | | | | | | [place] | | | | | | [address] | | | | | | [phone] | | | +--------+ + + + [...]
--- OUTSIDE RECORDS SUMMARY | ~2020-04-04 | XMS | Encounter Summary ---
Demographics + + + | Address | [address] | | | [place] [address] | + + + | Home Phone | | + + + | Preferred Language | Unknown | + + + | Marital Status | | + + + | Latter Day Affiliation | Unknown | + + + | Race | Unknown | + + + | Ethnic Group | Unknown | + + + Author + + + | Author | [facility] | | | and [place] | + + + | Organization | [facility] | | | and [place] [...] Team Providers + +------+ + | Care Phys Asst Name | Role | Phone | + +------+ + PCP | Unavailable | + +------+ + Encounter Details +--------+ + + + + | Date | Type | Department | Care Team | Description | +--------+ + + + + | 09/03/ | Hospital | [facility] | | | | 1991 | Encounter | [facility] | | | | | | HEALTH [facility] [address] | | | | | | [place], | | | | | | [place] [address] | | | | | | [phone] | | | +--------+ + + + [...]
--- OUTSIDE RECORDS SUMMARY | ~2020-04-04 | XMS | Encounter Summary ---
Demographics + + + | Address | [address] | | | [place] [address] | + + + | Home Phone | | + + + | Preferred Language | Unknown | + + + | Marital Status | | + + + | Anglican Affiliation | Unknown | + + + | Race | Unknown | + + + | Ethnic Group | Unknown | + + + Author + + + | Author | [facility] | | | and [place] | + + + | Organization | [facility] | | | and [place] [...] Team Providers + +------+ + | Care Aeroplane Pilot Name | Role | Phone | + +------+ + PCP | Unavailable | + +------+ + Encounter Details +--------+ + + + + | Date | Type | Department | Care Team | Description | +--------+ + + + + | 03/29/ | Hospital | [facility] | | | | 2006 | Encounter | MED CTR XRAY [address] | | | | | | [place] | | | | | | [place] [address] | | | | | | [phone] | | | +--------+ + + + [...]
--- OUTSIDE RECORDS SUMMARY | ~2020-04-04 | XMS | Encounter Summary ---
Demographics + + + | Address | [address] | | | [place] [address] | + + + | Home Phone [...] + + | Author | [place] [employer] [facility] | + + + | Organization | [facility] [employer] [facility] | + + + | Address | Unknown | + + + | Phone | Unavailable | + + + Support + + +---------+ + | Name | Relationship | Address | Phone | + + +---------+ + | Ruby Au | ECON | Unknown | | + + +---------+ + Care Team Providers + +------+ + | Care Basketballs And Footballs Reverser Name | Role | Phone | + [...] | | Ophthalmology | | [facility] | [place], | | | | | | Epic Dept | Graciela Guardado MD | | | | | | | [address] | | | | | [address] | | | | | | | [place], [place] | | | | | | | [address] | | | | | | | Phone: | | | | | | | [phone] | | | | | | | Fax: | | | | | | | [phone] | +--------+--------+ + + + + Encounter Details +--------+---------+ + + + | Date | Type | Department | Care Team | Description | +--------+---------+ + + + | 03/26/ | Office | [facility] | Mo Hood | Pseudotumor cerebri | | 2012 | Visit | [facility]/Ophthalmol | MD Perry | (Primary Dx); | | | | ogy at [facility] [address] | | Depression; Type II | | | | [place] Mailcode: | | or unspecified type | | | | [facility] Center for | | diabetes mellitus | | | | Health and Healing, | | without mention of | | | | Building | | complication, not | | | | Floor [place], [place] | | stated as | | | | [address] | | uncontrolled; PTSD | | | | [phone] | | (post-traumatic | | | | [...] resident's note as recorded. Graciela Lux M.D. o Hood MD - 03/26/2013 11:02 AM PDTFormatting of this note might be diff erent from the original. COMPREHENSIVE OPHTHALMOLOGY PROGRESS NOTE 03/26/2013 HPI: 37 y.o. year old female from [place] : Patient presents with: IIH - Idiopathic [...] because they live 4 hours away in [place] [facility]. Tobacco use: reports that she [...] Right Left Disc 1+ Optic disc edema, +PHARMACY INTAKE TECHNICIAN 2+ Optic disc edema, RNFL whitening at the superonasal borde r of the disc. There is spontaneous pulsing of the entire disc head with heart beat. C/D Ratio 0.1 0.1 Macula Normal Normal Vessels Engorged. tortuous Engorged. tortuous Periphery Normal Normal Neuro/Psych Oriented x3: Yes Mood/Affect: Normal See [facility] Ophthalmology Exam Module for additional exam [...] superior arcuate scotoma. Ishihara Color Plates: OD: 10 OS: 09/06 Assessment and Plan: 37 y.o. obese F with h/o pseudotumor cerebri (dx 2004) s/p left optic nerve sheath fenestra tion (by Dr. Hughes at [facility] in 2006) and s/p multiple lumboperitoneal shunt [...] Dr. Lux. Mo Hood MD Resident Physician [facility], PGY-[address] [facility] Physician: Mo Hood MD, 03/26/2013 documented in this encounter Plan of Treatment [...]
--- OUTSIDE RECORDS SUMMARY | ~2020-04-04 | XMS | Encounter Summary ---
Demographics + + + | Address | [address] | | | [place] [address] | + + + | Home Phone [...] + + + | Author | [place] [employer] [facility] | + + + | Organization | [facility] [employer] [facility] | + + + | Address | Unknown | + + + | Phone | Unavailable | + + + Support + + +---------+ + | Name | Relationship | Address | Phone | + + +---------+ + | Ruby Au | ECON | Unknown | | + + +---------+ + Care Team Providers + +------+ + | Care Photographic Press Screwmaker Name | Role | Phone | + [...] | | | Ave Mailcode: [address] | [place], [place] | | | | | [facility] | [address] | | | | | and Healing, | [phone] | | | | | [facility] | | | | | | Floor [place], [place] | | | | | | [address] | | | | | | [phone] | | | +--------+ + + + [...]
--- OUTSIDE RECORDS SUMMARY | ~2020-04-04 | XMS | Encounter Summary ---
Demographics + + + | Address | [address] | | | [place] [address] | + + + | Home Phone [...] + + + | Author | [facility] | + + + | Organization | [facility] | + + + | Address | Unknown | + + + | Phone | Unavailable | + + + Support + + +---------+ + | Name | Relationship | Address | Phone | + + +---------+ + | Ruby Au | ECON | Unknown | | + + +---------+ + Care Team Providers + +------+ + | Care Fractionation Plant Supervisor Name | Role | Phone | + +------+ + | Yeison Simms MD | PCP | Unavailable | + +------+ + Reason for Visit AUTH/CERT +--------+--------+ + + + + | Status | Reason | Specialty | Diagnoses / | Referred By | Referred To | | | | | Procedures | Contact | Contact | +--------+--------+ + + + + | Closed | | | | | Kpv 10k | | | | | | | Nsrg/Neur/Ot | | | | | | | [address] | | | | | | | [place] | | | | | | | [id number] | | | | | | | [facility] | | | | | | | [place], | | | | | | | [place] [address] | | | | | | | Phone: | | | | | | | [phone] | +--------+--------+ + + + + Encounter Details +--------+ + + + + | Date | Type | Department | Care Team | Description | +--------+ + + + + | 08/01/ | Hospital | [facility] [address] | Sam Pedroza MD | | | 2007 - | Encounter | [place] | [address] | | | | | [id number] [facility] | [place], [place] | | | 08/02/ | | [facility] [place], | [address] | | | 2007 | | [place] [address] | [phone] | | | | | [phone] | | | +--------+ + + + [...] + + + | Blood Pressure | 118/82 | 08/02/2008 11:07 AM | | | | | PDT | | + + + + + | Pulse | 82 | 08/02/2008 11:07 AM | | | | | PDT | | + + + + + | Temperature | 36.5 C (97.7 F) | 08/02/2008 11:07 AM | | | | | PDT | | + + + + + | Respiratory Rate | 18 | 08/02/2008 11:07 AM | | | | | PDT | | + + + + + | Oxygen Saturation | 95% | 08/02/2008 11:07 AM | | | | | PDT | | + + + + + | Inhaled Oxygen | - | - | | | Concentration | | | | + + + + + | Weight | - | - | | + + + + + | Height | - | - | | + + + + + | Body Mass Index | - | - | | + + + + + documented in this encounter Discharge Summaries Other, Faculty - 08/02/2008 12:16 PM PDT Other, Faculty - 08/02/2008 12:16 PM PDT Carley Araujo - 08/02/2008 7:43 AM PDT . INPATIENT PROVIDER DISCHARGE AND INTERDISCIPLINARY INSTRUCTIONS Discharge Date: 08/02/2008 Service: Neurosurgery Principal Final Diagnosis: Pseudotumor cerebri. Principal Procedure: Placement of lumboperitoneal shunt. Additional Procedures: Post op care Reason for Admission, Significant Findings, Treatment, and Complications Brief Hospital Course: This is a patient with pseudotumor cerebri, who underwent a previous LP shunt by Dr. Dinero, and this was met with some complications, namely CSF dripping from the patient's back, and the shunt was removed. She was readmitted for placeme nt of the LP shunt. Pt tolerated the procedure well and was discharged. Discharge Medications: Current Medication List Name Sig ALBUTEROL IN inhaler used to treat bronchitis DIAMOX OR 500 mg bid HYDROMORPHONE TAB (VARIABLE DOSE) 2-4 mg Oral EVERY 3 HOURS NEEDED SENNOSIDES-DOCUSATE SODIUM 8.6 MG-50 MG TAB 1 Tab Oral TWICE DAILY Diet: regular Activity: no driving on pain meds. Keep dressing dry and in place until 08/03. Then okay to remove and shower. No lifting, pushing, pulling > 15 lbs for 4 weeks. Special Instructions: Call: Neurosurgery Resident at If you have any of the following: Difficulty breathing or unusual shortness of breath Excessive bleeding, drainage at the operative site Fevers, chills, increased pain that is not relieved by pain medications Persistent nausea or vomiting Follow Up Appointments: PCP: Yeison Simms MD When? As needed Dr Pedroza, Neurosurgery, in 2 weeks, please call for appointment: [phone] Condition On Discharge: Vital Signs at discharge as appropriate: BP: 130/76 mmHg (08/02/08 7:25 AM) Pulse: 88 (08/02/08 7:25 AM) Resp: 18 (08/02/08 7:25 AM) Discharge Patient To: Home Discharging Provider: CARLEY ARAUJO MD Discharging Attending: Sam Pedroza documented in this encounter Discharge Instructions Instructions Anni Oliva - 08/02/2008 INPATIENT PROVIDER DISCHARGE AND INTERDISCIPLINARY INSTRUCTIONS Discharge Date: 08/02/2008 Service: Neurosurgery Principal Final Diagnosis: Pseudotumor cerebri. Principal Procedure: Placement of lumboperitoneal shunt. Additional Procedures: Post op care Reason for Admission, Significant Findings, Treatment, and Complications Brief Hospital Course: This is a patient with pseudotumor cerebri, who underwent a previous LP shunt by Dr. Dinero, and this was met with some complications, namely CSF dripping from the patient's back, and the shunt was removed. She was readmitted for placeme nt of the LP shunt. Pt tolerated the procedure well and was discharged. Discharge Medications: Current Medication List Name Sig ALBUTEROL IN inhaler used to treat bronchitis DIAMOX OR 500 mg bid HYDROMORPHONE TAB (VARIABLE DOSE) 2-4 mg Oral EVERY 3 HOURS NEEDED SENNOSIDES-DOCUSATE SODIUM 8.6 MG-50 MG TAB 1 Tab Oral TWICE DAILY Diet: regular Activity: no driving on pain meds. Keep dressing dry and in place until 08/03. Then okay to remove and shower. No lifting, pushing, pulling > 15 lbs for 4 weeks. Special Instructions: Call: Neurosurgery Resident at If you have any of the following: Difficulty breathing or unusual shortness of breath Excessive bleeding, drainage at the operative site Fevers, chills, increased pain that is not relieved by pain medications Persistent nausea or vomiting Follow Up Appointments: PCP: Yeison Simms MD When? As needed Dr Pedroza, Neurosurgery, in 2 weeks, please call for appointment: [phone] Condition On Discharge: Vital Signs at discharge as appropriate: BP: 130/76 mmHg (08/02/08 7:25 AM) Pulse: 88 (08/02/08 7:25 AM) Resp: 18 (08/02/08 7:25 AM) Discharge Patient To: Home Does patient have a planned readmission: No Discharge Summary Completed?: No Discharging Provider: CARLEY ARAUJO MD Date Completed: 08/02/2008 Time Completed: 8am Discharging Attending: Sam Pedroza INPATIENT NURSE ORDER FOR DISCHARGE AND INTERDISCIPLINARY INSTRUCTIONS DISCHARGE DATE: 08/02/2008 PATIENT EDUCATION: Patient given the following printed education materials none Review with patient/family: Understanding of disease/injury/surgical repair Yes Signs/symptoms that they should report Yes Understanding of medications and side effects Yes Activity and diet instructions Yes Follow-up appointments Yes Any concerns/fears Yes Smoking Cessation Counseling/Information was given: N/A Additional Instructions: (ex: wound care, tube feeding, trach care, CBG monitoring etc.) none Personal Effects/Medications: Sent home with patient Discharged Via: Wheelchair Mode of Transportation: Car Accompanied by: Family/Responsible Green Party Discharge Nurse: Anni Oliva Date: 08/02/2008 Discharge Time: 11:50 AM documented in this encounter Progress Notes Marcello Solorio - 08/02/2008 11:40 AM PDTP.T. Contact Note Orders received. Spoke with pt and RN who both report that she is mobilizing independently. Annabella denies any concerns for safety during mobility for dc home; she declines PT particip ation at this time. PT to sign off. essenia Nowak 08/02/2008 9:00 AM PDTOT contact note: Spoke with pt who reports she has been up ambulating independently, has no ADL needs and [facility] Dr. Pedroza agreed that she would not need therapies. Spoke with RN who endorses that pt has been up independently last pm and this am. OT to sign off at this time. Yessenia Nowak, OTR/ L [id number] Tomasz Caldera Md - 02/2008 11:08 AM PDTINPATIENT BRIEF OPERATIVE NOTE Date: 08/01/2008 Author: TOMASZ RICE MD Attending Physician: Kasia Assistants: Inderjit Rice At (time), prior to the beginning of the procedure the team paused to verify the patient's identity, as well as the procedure to be performed and the correct side/site. All equipmen t required was ready and available. The patient was positioned appropriately. The following team members were present during the team pause: Krystal and staff Preoperative Diagnosis: pseudotumor cerebri Postoperative Diagnosis: same Procedure Performed: LP shunt Estimated Blood Loss: min Fluids: per anes Specimens: none Complications: none Drains: none Disposition: pacu Findings: good CSF flow documented in this e ncounter Plan of Treatment Not on filedocumented as of this encounter Procedures + +--------+ + + + | Procedure Name | Priori | Date/Time | Associated Diagnosis | Comments | | | ty | | | | + +--------+ + + + | ANESTHESIA/SEDATION | | 08/02/2008 | | Results for this | | | | 12:16 PM | | procedure are in the | | | | PDT | | results section. | + +--------+ + + + | ANESTHESIA/SEDATION | | 08/02/2008 | | Results for this | | | | 12:16 PM | | procedure are in the | | | | PDT | | results section. | + +--------+ + + + | ANESTHESIA/SEDATION | | 08/02/2008 | | Results for this | | | | 12:16 PM | | procedure are in the | | | | PDT | | results section. | + +--------+ + + + | X-RAY ABDOMEN 2 | Urgent | 08/01/2008 | | Results for this | | VIEWS | | 1:39 PM | | procedure are in the | | | | PDT | | results section. | + +--------+ + + + | TEACHING PHYSICIAN | | 08/01/2008 | | Results for this | | | | 12:00 AM | | procedure are in the | | | | PDT | | results section. | + +--------+ + + + | OPERATION RECORD | | 08/01/2008 | | Results for this | | | | 12:00 AM | | procedure are in the | | | | PDT | | results section. | + +--------+ + + + documented in this encounter Results ANESTHESIA/SEDATION (08/02/2008 12:16 PM PDT) + + + | Narrative | Performed At | + + + | | | + + + + + | Procedure Note | + + | Jonnie Crum - 08/02/2008 12:16 PM PDT | + + ANESTHESIA/SEDATION (08/02/2008 12:16 PM PDT) + + + | Narrative | Performed At | + + + | | | + + + + + | Procedure Note | + + | Jonnie Crum - 08/02/2008 12:16 PM PDT | + + ANESTHESIA/SEDATION (08/02/2008 12:16 PM PDT) + + + | Narrative | Performed At | + + + | | | + + + + + | Procedure Note | + + | Other, Faculty - 08/02/2008 12:16 PM PDT | + + X-RAY ABDOMEN 2 VIEWS (08/01/2008 1:39 PM PDT) + + + + + + | Component | Value | Ref Range | Performed | Pathologist | | | | | At | Signature | + + + + + + | ABDOMEN, 2 | STUDY: ABDOMEN, 2 VIEWS | | | | | VIEWS | 08/01/08 | | | | | | 17:26:00HISTORY: Eval | | | | | | catheter | | | | | | positionCOMPARISON: | | | | | | None.FINDINGS:An | | | | | | intrathecal catheter is | | | | | | identified, with the tip | | | | | | projecting overthe | | | | | | T11-12 level. (Please | | | | | | note that for the | | | | | | purposes of | | | | | | thisdictation, the | | | | | | patient has six | | | | | | lumbar-type vertebral | | | | | | bodies.) Thebowel gas | | | | | | pattern is normal. An | | | | | | intrauterine device is | | | | | | present.IMPRESSION:Noemi | | | | | | ter tip lies at the | | | | | | T11-12 level.I have | | | | | | personally viewed this | | | | | | procedure/exam and | | | | | | reviewed this | | | | | | report.STATUS FINAL / | | | | | | Dr. ARMAND CORDOBA | | | | + + + + + + + + | Specimen | + + | | + + + +---------+ + + | Performing | Address | City/State/Zipcode | Phone Number | | Organization | | | | + +---------+ + + | [facility] DEPARTMENT OF | | | | | RADIOLOGY | | | | + +---------+ + + OPERATION RECORD (08/01/2008 12:00 AM PDT) + + + | Narrative | Performed At | + + + | [id number] | | | [id number] | | | [place] [id number] Date: | | | 08/01/2008 Attending Surgeon: | | | Sam Pedroza M.D. Sales Expert Home Theater(s): | | | Tomasz Rice M.D. | | | Palomo Jansen M.D. Preoperative | | | Diagnosis(es): Pseudotumor cerebri. Postoperative | | | Diagnosis(es): Pseudotumor cerebri. Procedures Performed: | | | Placement of lumboperitoneal shunt. Anesthesia: General | | | endotracheal anesthesia. Estimated Blood Loss: Minimal. | | | Complications: None. Indications: This is a patient with | | | pseudotumor cerebri, who underwent a previous LP shunt by | | | Rosette, and this was met with some complications, namely CSF | | | dripping from the patient's back, and the shunt was removed. She | | | now presents for replacement of the CSF shunt. Findings: | | | There was excellent CSF dripping in the distal peritoneal catheter | | | prior to insertion into the peritoneal cavity. Procedure: The | | | patient was identified and brought to the operating room. General | | | endotracheal anesthesia was induced. The patient was positioned | | | in the lateral decubitus position with left side up. All pressure | | | points were padded. The bourgeois bag was then deflated. The lumbar | | | and the patient's previous peritoneal wound were then prepped and | | | draped in the usual fashion. Local was infiltrated with 0.25% | | | Marcaine with epinephrine. The previous incision was then | | | incised. In the lumbar area, the incision was taken down to the | | | lumbar fascia. A tunneler was then used to tunnel from the back | | | incision into the abdominal incision. At this point, the tunneler | | | was removed. A Tuohy needle was then inserted in the interlaminar | | | space. Clear CSF fluid was obtained. The lumboperitoneal catheter | | | was inserted through the Tuohy needle. The Tuohy needle was | | | removed, and the lumboperitoneal catheter was then passed through the | | | tunneler into the abdominal wound. Of note, the remaining | | | catheter was too short to insert into the abdominal wound. | | | Therefore, a straight connector was used to connect a new LP | | | shunt through the wound that was just placed. In the abdominal | | | wound, the incision was taken down. There was some scarring; | | | however, the incision was just moved down inferiorly slightly and | | | taken down into the peritoneum. The peritoneum was lifted with | | | tonsils and then gently incised. A Chester 4 was then easily fed | | | through it, and a piece of bowel was seen through this hole. The | | | peritoneal catheter was then checked for dripping CSF, and it | | | appeared to be spontaneously dripping well. It was then inserted | | | into the hole made into the peritoneum, and it fed very easily. | | | At this point, both wounds were copiously irrigated. A collar | | | was placed to secure the catheter to both the lumbar fascia and the | | | abdominal fascia in the back. The subcutaneous tissue was closed | | | using 3-0 Vicryl sutures, and the skin was closed using 4-0 Rapide. | | | The wound was dressed with bacitracin and Telfa. In the | | | abdomen, the fascia was closed using 0 Vicryl sutures. The collar | | | was secured to the fascia using 2-0 silk stitch. Subcutaneous | | | tissue was closed using 3-0 Vicryl sutures, and the skin was closed | | | using 4-0 Rapide. This wound was also dressed with bacitracin | | | and Telfa. Cover-roll was also applied to both the wounds. The | | | patient was then turned supine extubated and taken to the | | | postoperative recovery. Dr. Sam Pedroza was present for the | | | essential aspects of this case including insertion of the | | | lumboperitoneal catheter. Tomasz Rice | | | Pooja Pedroza M.D. / [id number] / | | | [id number] / [id number] / | | + + + + + | Procedure Note | + + | Krystal Rushing, Tomasz - 08/01/2008 12:00 AM PDT [id number] | | [id number] [place] | | [id number] Date: 08/01/2008 Attending Surgeon: Sam | | Pooja Pedroza Sales Expert Home Theater(s): Tomasz Rice M.D. | | Palomo Jansen M.D. Preoperative Diagnosis(es):Pseudotumor cerebri. | | Postoperative Diagnosis(es):Pseudotumor cerebri. Procedures Performed:Placement of | | lumboperitoneal shunt. Anesthesia:General endotracheal anesthesia. Estimated Blood | | Loss:Minimal. Complications:None. Indications:This is a patient with pseudotumor | | cerebri, who underwent a previous LPshunt by Dr. Dinero, and this was met with some | | complications, namely CSFdripping from the patient's back, and the shunt was removed. | | She nowpresents for replacement of the CSF shunt. Findings:There was excellent CSF | | dripping in the distal peritoneal catheter prior toinsertion into the peritoneal cavity. | | Procedure:The patient was identified and brought to the operating room. | | Generalendotracheal anesthesia was induced. The patient was positioned in thelateral | | decubitus position with left side up. All pressure points werepadded. The bourgeois bag was | | then deflated. The lumbar and the patient'sprevious peritoneal wound were then prepped | | and draped in the usualfashion. Local was infiltrated with 0.25% Marcaine with | | epinephrine. Theprevious incision was then incised. In the lumbar area, the incision | | wastaken down to the lumbar fascia. A tunneler was then used to tunnel fromthe back | | incision into the abdominal incision. At this point, the tunnelerwas removed. A Tuohy | | needle was then inserted in the interlaminar space.Clear CSF fluid was obtained. The | | lumboperitoneal catheter was insertedthrough the Tuohy needle. The Tuohy needle was | | removed, and thelumboperitoneal catheter was then passed through the tunneler into | | theabdominal wound. Of note, the remaining catheter was too short to insertinto the | | abdominal wound. Therefore, a straight connector was used toconnect a new LP shunt | | through the wound that was just placed. In theabdominal wound, the incision was taken | | down. There was some scarring;however, the incision was just moved down inferiorly | | slightly and takendown into the peritoneum. The peritoneum was lifted with tonsils and | | thengently incised. A Chester 4 was then easily fed through it, and a pieceof bowel | | was seen through this hole. The peritoneal catheter was thenchecked for dripping CSF, | | and it appeared to be spontaneously drippingwell. It was then inserted into the hole | | made into the peritoneum, and itfed very easily. At this point, both wounds were | | copiously irrigated. Acollar was placed to secure the catheter to both the lumbar | | fascia and theabdominal fascia in the back. The subcutaneous tissue was closed using | | 3-0Vicryl sutures, and the skin was closed using 4-0 Rapide. The wound wasdressed with | | bacitracin and Telfa. In the abdomen, the fascia was closedusing 0 Vicryl sutures. The | | collar was secured to the fascia using 2-0silk stitch. Subcutaneous tissue was closed | | using 3-0 Vicryl sutures, andthe skin was closed using 4-0 Rapide. This wound was also | | dressed withbacitracin and Telfa. Cover-roll was also applied to both the wounds. | | Thepatient was then turned supine extubated and taken to the postoperativerecovery. . | | Sam Pedroza was present for the essential aspects of this caseincluding insertion of | | the lumboperitoneal catheter. Tomasz Rice M.D. Sam Pedroza M.D. KG / | | [id number] / [id number] / [id number] / T: 08/02/2008 | |dripping from the patient's back, and the shunt was removed. She now | |presents for replacement of the CSF shunt. | | | | | |Findings: | |There was excellent CSF dripping in the distal peritoneal catheter prior to | |insertion into the peritoneal cavity. | | | | | |Procedure: | |The patient was identified and brought to the operating room. General | |endotracheal anesthesia was induced. The patient was positioned in the | |lateral decubitus position with left side up. All pressure points were | |padded. The bourgeois bag was then deflated. The lumbar and the patient's | |previous peritoneal wound were then prepped and draped in the usual | |fashion. Local was infiltrated with 0.25% Marcaine with epinephrine. The | |previous incision was then incised. In the lumbar area, the incision was | |taken down to the lumbar fascia. A tunneler was then used to tunnel from | |the back incision into the abdominal incision. At this point, the tunneler | |was removed. A Tuohy needle was then inserted in the interlaminar space. | |Clear CSF fluid was obtained. The lumboperitoneal catheter was inserted | |through the Tuohy needle. The Tuohy needle was removed, and the | |lumboperitoneal catheter was then passed through the tunneler into the | |abdominal wound. Of note, the remaining catheter was too short to insert | |into the abdominal wound. Therefore, a straight connector was used to | |connect a new LP shunt through the wound that was just placed. In the | |abdominal wound, the incision was taken down. There was some scarring; | |however, the incision was just moved down inferiorly slightly and taken | |down into the peritoneum. The peritoneum was lifted with tonsils and then | |gently incised. A Chester 4 was then easily fed through it, and a piece | |of bowel was seen through this hole. The peritoneal catheter was then | |checked for dripping CSF, and it appeared to be spontaneously dripping | |well. It was then inserted into the hole made into the peritoneum, and it | |fed very easily. At this point, both wounds were copiously irrigated. A | |collar was placed to secure the catheter to both the lumbar fascia and the | |abdominal fascia in the back. The subcutaneous tissue was closed using 3-0 | |Vicryl sutures, and the skin was closed using 4-0 Rapide. The wound was | |dressed with bacitracin and Telfa. In the abdomen, the fascia was closed | |using 0 Vicryl sutures. The collar was secured to the fascia using 2-0 | |silk stitch. Subcutaneous tissue was closed using 3-0 Vicryl sutures, and | |the skin was closed using 4-0 Rapide. This wound was also dressed with | |bacitracin and Telfa. Cover-roll was also applied to both the wounds. The | |patient was then turned supine extubated and taken to the postoperative | |recovery. | | | | | |Dr. Sam Pedroza was present for the essential aspects of this case | |including insertion of the lumboperitoneal catheter. | | | | | | | | | | | | | | | | | |Tomasz Rice M.D. | | | | | | | | | | | | | |Sam Pedroza M.D. | | | | | |KG / HS | |[id number] / [id number] / [id number] / | | | | | | | | | | | | | | | | | | | | | + + TEACHING PHYSICIAN (08/01/2008 12:00 AM PDT) + + + | Narrative | Performed At | + + + | [id number] | | | [id number] | | | [place] [id number] | | | Date: 08/01/2008 Attending Surgeon: | | | Sam Pedroza M.D. Sales Expert Home Theater(s): | | | Tomasz Rice M.D. | | | Palomo Jansen M.D. Preoperative | | | Diagnosis(es): Pseudotumor cerebri. Postoperative | | | Diagnosis(es): Pseudotumor cerebri. Procedures Performed: | | | Placement of lumboperitoneal shunt. Anesthesia: General | | | endotracheal anesthesia. Complications: None. Dr. Simon | | | Sam Pedroza, was in the OR during the critical portions of this | | | procedure which included the placement of the lumbar drain into the | | | subarachnoid space and then exposure of the peritoneal site and | | | placement of the lumboperitoneal shunt into the peritoneal space | | | without any complication. A full operative report will be | | | dictated by Dr. Palomo Jansen. Sam | | | Pooja Pedroza / [place] [id number] / [id number] / [id number] / [id number] D: | | | 08/01/2008 | | + + + + + | Procedure Note | + + | Sam Pedroza MD - 08/01/2008 12:00 AM PDT [id number] | | [id number] [facility] | | [id number] Date: 08/01/2008ttending Surgeon: Sam | | Pooaj Pedroza Sales Expert Home Theater(s): Tomasz Rice M.D. | | Palomo Jansen M.D. Preoperative Diagnosis(es):Pseudotumor cerebri. | | Postoperative Diagnosis(es):Pseudotumor cerebri. Procedures Performed:Placement of | | lumboperitoneal shunt. Anesthesia:General endotracheal anesthesia. Complications:None. | | I, Dr. Sam Pedroza, was in the OR during the critical portions of thisprocedure which | | included the placement of the lumbar drain into thesubarachnoid space and then exposure | | of the peritoneal site and placementof the lumboperitoneal shunt into the peritoneal | | space without anycomplication. A full operative report will be dictated by | | Bisi. Sam Pedroza M.D. AD / [id number] / [id number] / [id number] / [id number]: | | 08/01/2008T: 08/01/2008 | | | |Preoperative Diagnosis(es): | |Pseudotumor cerebri. | | | | | |Postoperative Diagnosis(es): | |Pseudotumor cerebri. | | | | | |Procedures Performed: | |Placement of lumboperitoneal shunt. | | | | | |Anesthesia: | |General endotracheal anesthesia. | | | | | |Complications: | |None. | | | | | |I, Dr. Sam Pedroza, was in the OR during the critical portions of this | |procedure which included the placement of the lumbar drain into the | |subarachnoid space and then exposure of the peritoneal site and placement | |of the lumboperitoneal shunt into the peritoneal space without any | |complication. A full operative report will be dictated by Dr. Culver | |Inderjit. | | | | | | | | | | | | | | | | | |Sam Pedroza M.D. | | | | | |AD / HS | |[id number] / [id number] / [id number] / [id number] | | | | | | | | | | | | | | | | | | | | | + + documented in this encounter Visit Diagnoses Not on filedocumented in this encounter Administered Medications + +--------+ +--------+------+------+ | Medication Order | MAR | Action | Dose | Rate | Site | | | Action | Date | | | | + +--------+ +--------+------+------+ | acetaminophen (aka TYLENOL) | Given | 08/02/20 | 650 mg | | | | suppository 325-650 mg 325-650 | | 08 7:51 | | | | | mg, rectal, EVERY 6 HOURS | | AM PDT | | | | | NEEDED, Starting Madelaine 08/01/08 at | | | | | | | 1329, Until Tue08/02/08 at 1816, | | | | | | | mild pain, fever | | | | | | + +--------+ +--------+------+------+ +---+---+ | | | +---+---+ + +-------+ +--------+---+---+ | acetaminophen (aka TYLENOL) | Given | 08/01/20 | 650 mg | | | | tablet 325-650 mg 325-650 mg, | | 08 9:18 | | | | | oral, EVERY 6 HOURS NEEDED, | | PM PDT | | | | | Starting Madelaine 08/01/08 at 1329, | | | | | | | Until Tue08/02/08 at 1816, pain or | | | | | | | fever greater than 38.5 degrees | | | | | | | C | | | | | | + +-------+ +--------+---+---+ +-------+ +--------+---+---+ | Given | 08/01/20 | 650 mg | | | | | 08 2:26 | | | | | | PM PDT | | | | +-------+ +--------+---+---+ +---+---+ | | | +---+---+ + +---------+ + + +---+ | dextrose 5%-NaCl 0.9%-KCl 20 | New Bag | 08/01/20 | 75 mL/hr | 75 mL/hr | | | mEq/L IV infusion 75 mL/hr, | | 08 12:45 | | | | | intravenous, CONTINUOUS, Starting | | PM PDT | | | | | Madelaine 08/01/08 at 1245, Until Fri | | | | | | | 08/02/08 at 1816 | | | | | | + +---------+ + + +---+ +---+---+ | | | +---+---+ + +-------+ +--------+---+---+ | fentanyl (aka SUBLIMAZE) | Given | 08/01/20 | 50 mcg | | | | injection 50-200 mcg 50-200 mcg, | | 08 11:00 | | | | | intravenous, POSTPROCEDURE PRN, | | AM PDT | | | | | Starting Madelaine 08/01/08 at 1025, | | | | | | | Until Madelaine 08/01/08 at 1259, | | | | | | | moderate pain | | | | | | + +-------+ +--------+---+---+ +---+---+ | | | +---+---+ + +-------+ +------+---+---+ | hydromorphone (aka DILAUDID) | Given | 08/02/20 | 4 mg | | | | tablet 2-4 mg 2-4 mg, oral, | | 08 12:11 | | | | | EVERY 3 HOURS NEEDED, Starting | | PM PDT | | | | | Madelaine 08/01/08 at 1332, Until Fri | | | | | | | 08/02/08 at 1816, moderate pain | | | | | | + +-------+ +------+---+---+ +-------+ +------+---+---+ | Given | 08/02/20 | 4 mg | | | | | 08 8:59 | | | | | | AM PDT | | | | +-------+ +------+---+---+ | Given | 08/02/20 | 4 mg | | | | | 08 5:42 | | | | | | AM PDT | | | | +-------+ +------+---+---+ +---+---+ | | | +---+---+ + +-------+ +------+---+---+ | morphine injection 1-4 mg 1-4 | Given | 08/02/20 | 4 mg | | | | mg, intravenous, EVERY 2 HOURS | | 08 7:52 | | | | | NEEDED, Starting Madelaine 08/01/08 at | | AM PDT | | | | | 1331, Until Tue08/02/08 at 1136, | | | | | | | moderate pain, severe pain | | | | | | + +-------+ +------+---+---+ +-------+ +------+---+---+ | Given | 08/02/20 | 4 mg | | | | | 08 5:43 | | | | | | AM PDT | | | | +-------+ +------+---+---+ | Given | 08/02/20 | 4 mg | | | | | 08 12:06 | | | | | | AM PDT | | | | +-------+ +------+---+---+ +---+---+ | | | +---+---+ + +-------+ +---+---+---+ | morphine injection 1 dose, | Given | 08/01/20 | | | | | Starting Madelaine 08/01/08 at 1333, | | 08 1:45 | | | | | Until Madelaine 08/01/08 at 1427 | | PM PDT | | | | + +-------+ +---+---+---+ +---+---+ | | | +---+---+ + +-------+ + +---+---+ | senna-docusate (mary Waters) | Given | 08/02/20 | 1 tablet | | | | 8.6-50 mg 1 Tab 1 tablet, oral, | | 08 9:00 | | | | | TWICE DAILY, First dose on Madelaine | | AM PDT | | | | | 08/01/08 at 1400, Until | | | | | | | Discontinued | | | | | | + +-------+ + +---+---+ +-------+ + +---+---+ | Given | 08/01/20 | 1 tablet | | | | | 08 8:08 | | | | | | PM PDT | | | | +-------+ + +---+---+ | Given | 08/01/20 | 1 tablet | | | | | 08 2:00 | | | | | | PM PDT | | | | +-------+ + +---+---+ +---+---+ | | | +---+---+ documented in this encounter"
--- OUTSIDE RECORDS SUMMARY | ~2020-04-04 | XMS | Encounter Summary ---
Demographics + + + | Address | [address] | | | [place] [address] | + + + | Home Phone [...] + + | Author | [place] [employer] [facility] | + + + | Organization | [facility] [employer] [facility] [...] Team Providers + +------+ + | Care Quality Improvement Engineer Name | Role | Phone | [...] | | | Ave Mailcode: CH[address]N | [place], [place] | | | | | [facility] | [address] | | | | | and Healing, | [phone] | | | | | [facility] | | | | | | Floor [facility] [place] | | | | | | [address] | | | | | | [phone] | | | +--------+ + + + [...]
--- OUTSIDE RECORDS SUMMARY | ~2020-04-04 | XMS | Encounter Summary ---
Demographics + + + | Address | [address] | | | [place] [address] | + + + | Home Phone | | + + + | Preferred Language | Unknown | + + + | Marital Status | | + + + | Alevism Affiliation | Unknown | + + + | Race | Unknown | + + + | Ethnic Group | Unknown | + + + Author + + + | Author | [facility] | | | and [place] | + + + | Organization | [facility] | | | and [...] Team Providers + +------+ + | Care Commercial Solar Sales Consultant Name | Role | Phone | + +------+ + PCP | Unavailable | + +------+ + Encounter Details +--------+ + + + + | Date | Type | Department | Care Team | Description | +--------+ + + + + | 08/16/ | Hospital | [facility] | | | | 1990 | Encounter | MED CTR EMERGENCY | | | | | | CENTER [address] | | | | | | [place] | | | | | | [address] | | | | | | [phone] | | | +--------+ + + + [...]
--- OUTSIDE RECORDS SUMMARY | ~2020-04-04 | XMS | Encounter Summary ---
Demographics + + + | Address | [address] | | | [place] [address] | + + + | Home Phone | | + + + | Preferred Language | Unknown | + + + | Marital Status | | + + + | Synagogue Affiliation | Unknown | + + + | Race | Unknown | + + + | Ethnic Group | Unknown | + + + Author + + + | Author | [facility] | | | and [place] | + + + | Organization | [facility] [...] Providers + +------+ + | Care Sewing Machine Assembler Name | Role | Phone | + +------+ + PCP | Unavailable | + +------+ + Encounter Details +--------+ + + + + | Date | Type | Department | Care Team | Description | +--------+ + + + + | 10/21/ | Hospital | [facility] | | | | 1991 | Encounter | MED CTR WOMENS | | | | | | HEALTH [facility] [address] | | | | | | [place], | | | | | | [place] [address] | | | | | | [phone] | | | +--------+ + + + [...]
--- OUTSIDE RECORDS SUMMARY | ~2020-04-04 | XMS | Encounter Summary ---
Demographics + + + | Address | [address] | | | [place] [address] | + + + | Home Phone [...] | Organization | [facility] [...] Team Providers + +------+ + | Care Wafer Production Worker Name | Role | Phone | + +------+ + PCP | Unavailable | + +------+ + Encounter Details +--------+ + + + + | Date | Type | Department | Care Team | Description | +--------+ + + + + | 07/24/ | Hospital | [facility] | | | | 1990 | Encounter | MED CTR EMERGENCY | | | | | | CENTER [address] | | | | | | [place] | | | | | | [address] | | | | | | [phone] | | | +--------+ + + + [...]
--- OUTSIDE RECORDS SUMMARY | ~2020-04-04 | XMS | Encounter Summary ---
Demographics + + + | Address | [address] | | | [place] [address] | + + + | Home Phone [...] + + + | Author | [place] [employer] [facility] | + + + | Organization | [facility] [employer] [facility] | + + [...] Providers + +------+ + | Care Orange Peel Operator Name | Role | Phone | [...] [address] | | | | | [facility] | [place], [place] | | | | | Health and Healing, | [address] | | | | | Building [address] | | | | | | Floor [place], [place] | | | | | | [address] | | | | | | [phone] | | | +--------+ + + + [...]
--- OUTSIDE RECORDS SUMMARY | ~2020-04-04 | XMS | Encounter Summary ---
Demographics + + + | Address | [address] | | | [place] [address] | + + + | Home Phone [...] + + + | Author | [place] [employer] [facility] | + + + | Organization | [facility] [employer] [facility] | + + + | Address | Unknown | + + + | Phone | Unavailable | + + + Support + + +---------+ + | Name | Relationship | Address | Phone | + + +---------+ + | Ruby Au | ECON | Unknown | | + + +---------+ + Care Team Providers + +------+ + | Care Cosmetic Assembler Name | Role | Phone | [...] | | | cerebri | | [address] | | | | | Procedures | | Ave | | | | | REFERRAL TO | | [place], [place] | | | | | NEUROINTERVE | | [address] | | | | | NTIONAL | | Phone: | | | | | RADIOLOGY | | [phone] | | | | | PRACTICE | | Fax: | | | | | | | [phone] | +--------+--------+ + + + + Reason [...] | | 2007 | Visit | [address] | [address] | (Primary Dx) | | | | Mailcode:OP14B | [place], [place] | | | | | Outpatient Clinic | [address] | | | | | Building [place], | [phone] | | | | | [place] [address] | | | | | | [phone] | | | +--------+---------+ + + + [...] resident s note. CASIMIRO PAYTON MD NEUROSURGERY [facility] [place] [address] Pascual Ballard - 12:00 PM [...] spots" and "tunnel vision." Last saw an private secretary in [facility] 2 months ago. Reportedl y, this showed that her OS vision was worse - no reports available to me at this time. Was a lso [facility] for CAPONE about a month ago. [...] Patient was also given a prescription for Denair for CAPONE until she establishs care with [...]
--- OUTSIDE RECORDS SUMMARY | ~2020-04-04 | XMS | Encounter Summary ---
Demographics + + + | Address | [address] | | | [place] [address] | + + + | Home Phone [...] + + + | Author | [place] [employer] [facility] | + + + | Organization | [facility] [employer] [facility] [...] Team Providers + +------+ + | Care Photoengraving Supervisor Name | Role | Phone | [...] Care Coordination | | 2018 | | [place] | MD [address] | | | | | Neuro-Ophthalmology | [facility] [place] | | | | | at [facility] [address] | [address] | | | | | Ave Mailcode: CH3G | [phone] | | | | | [facility] | | | | | | and Healing, | | | | | | Building | | | | | | Floor [place], [place] | | | | | | [address] | | | | | | [phone] | | | +--------+ + + + [...]
--- OUTSIDE RECORDS SUMMARY | ~2020-04-04 | XMS | Encounter Summary ---
Demographics + + + | Address | [address] | | | [place] [address] | + + + | Home Phone [...] + + + | Author | [place] [employer] [facility] | + + + | Organization | [facility] [employer] [facility] | + [...] Team Providers + +------+ + | Care United [place] Attorney Name | Role | Phone | + [...] | Telephone | Neurosurgery at | Sam Pderoza MD | Letter Encounter | | 2008 | | [facility] | [address] | | | | | and Healing [address] | [place], [place] | | | | | [address] Mailcode: | [address] | | | | | [address] [facility] | [phone] | | | | | Health and Healing, | | | | | | Building [address], | | | | | | Floor [place], [place] | | | | | | [address] | | | | | | [phone] | | | +--------+ + + + [...]
--- OUTSIDE RECORDS SUMMARY | ~2020-04-04 | XMS | Encounter Summary ---
Demographics + + + | Address | [address] | | | [place] [address] | + + + | Home Phone [...] + + | Author | [place] [employer] [facility] | + + + | Organization | [facility] [employer] [facility] | + + + | Address | Unknown | + + + | Phone | Unavailable | + + + Support + + +---------+ + | Name | Relationship | Address | Phone | + + +---------+ + | Ruby Au | ECON | Unknown | | + + +---------+ + Care Team Providers + +------+ + | Care Diesel Powerplant Mechanic Helper Name | Role | Phone | [...] Erroneous Encounter | | 2007 | | [facility] | [facility] | - Disregard | | | | and Healing [address] | Neurosurgery [address] | | | | [address] Mailcode: | [address] | | | | | [facility] Center for | [place], [place] | | | | | Health and Healing, | [address] | | | | | Building [address] | | | | | | Floor [place], [place] | | | | | | [address] | | | | | | [phone] | | | +--------+ + + + [...]
--- OUTSIDE RECORDS SUMMARY | ~2020-04-04 | XMS | Encounter Summary ---
Demographics + + + | Address | [address] | | | [place] [address] | + + + | Home Phone [...] | Organization | [facility] | | | and [...] Team Providers + +------+ + | Care Prison Teacher Name | Role | Phone | + +------+ + PCP | Unavailable | + +------+ + Encounter Details +--------+ + + + + | Date | Type | Department | Care Team | Description | +--------+ + + + + | 07/19/ | Hospital | [facility] | [place], | | | 1990 - | Encounter | MED CTR MED ONC | [address] | | | | | [address] | [place] | | | 07/21/ | | [place] [address] | [address] | | | 1990 | | [phone] | | | +--------+ + + + [...]
--- OUTSIDE RECORDS SUMMARY | ~2020-04-04 | XMS | Clinical Summary ---
Demographics + + + | Address | [address] | | | [place] [address] | + + + | Home Phone | | + + + | Preferred Language | Unknown | + + + | Marital Status | | + + + | Scientologist Affiliation | NON | + + + | Race | or | + + + | Ethnic Group | Not or | + + + Author + + + | Author | [facility] | + + + | Organization | [facility] | + + + | Address | Unknown | + + + | Phone | Unavailable | + + + Support + + +---------+ + | Name | Relationship | Address | Phone | + + +---------+ + | Ruby Au | ECON | Unknown | | + + +---------+ + Care Team Providers + +------+ + | Care Pulmonary Disease Specialist Name | Role | Phone | + +------+ + | Dennis Maddox | PCP | | + +------+ + Source Comments REBECA is fully live on both [facility] and [facility] Allergies + + + + + + | Active Allergy | Reactions | Severity | Noted | Comments | | | | | Date | | + + + + + + | Amoxicillin-Pot | Nausea | Medium | 03/13/20 | | | Clavulanate | | | 13 | | + + + + + + | Cephalexin | Rash | Medium | 09/05/20 | | | | | | 06 | | + + + + + + | Codeine | Rash | Medium | 09/05/20 | | | | | | 06 | | + + + + + + | Sumatriptan | Rash | | 08/01/20 | Had rxn w/ other | | Succinate | | | 08 | meds. 2nd time no | | | | | | rxn | + + + + + + | Morphine | Nausea | Medium | 03/13/20 | | | | | | 13 | | + + + + + + | Venlafaxine | | | 03/26/20 | Worsened mood | | | | | 13 | symptoms | + + + + + + Medications + + + +---------+------+------+-------+ | Medication | Sig | Dispensed | Refills | Star | End | Statu | | | | | | t | Date | s | | | | | | Date | | | + + + +---------+------+------+-------+ | losartan 100 mg | Take 100 mg by mouth | | 0 | | | Activ | | Oral Tablet | once daily. | | | | | e | + + + +---------+------+------+-------+ | omeprazole | Take 20 mg by mouth | | 0 | | | Activ | | (PRILOSEC) 20 mg | two times daily. | | | | | e | | Oral Capsule, | | | | | | | | Delayed | | | | | | | | Release(E.C.) | | | | | | | + + + +---------+------+------+-------+ | ibuprofen 800 mg | Take 800 mg by mouth | | 0 | | | Activ | | Oral Tablet | every eight hours | | | | | e | | | as needed. | | | | | | + + + +---------+------+------+-------+ | carisoprodol | Take 350 mg by mouth | | 0 | | | Activ | | (SOMA) 350 mg Oral | three times daily | | | | | e | | Tablet | as needed. | | | | | | + + + +---------+------+------+-------+ | metFORMIN 500 mg | Take 500 mg by mouth | | 0 | | | Activ | | Oral tablet | two times daily. | | | | | e | + + + +---------+------+------+-------+ | topiramate 25 mg | Start with taking 1 | 240 Tab | 0 | 05/0 | | Activ | | Oral | tablet a day for 1 | | | 01/17 | | e | | tabletIndications: | week, then 2 tablets | | | 13 | | | | Pseudotumor cerebri | a day for 1 week, | | | | | | | | than 3 tablets a day | | | | | | | | for 1 week and then | | | | | | | | 4 tablets a day. | | | | | | + + + +---------+------+------+-------+ Active Problems + + + | Problem | Noted Date | + + + | Type II or unspecified type diabetes mellitus without mention of | 03/26/2013 | | complication, not stated as uncontrolled | | + + + | PTSD (post-traumatic stress disorder) | 03/26/2013 | + + + | HTN (hypertension) | 03/26/2013 | + + + | Bronchitis | 01/30/2007 | + + + | Pseudotumor cerebri | 09/05/2006 | + + + Family History + + +------+ + | Medical History | Relation | Name | Comments | + + +------+ + | Diabetes | | | grandmother | + + +------+ + | Cataracts | Neg Hx | | | + + +------+ + | Glaucoma | Neg Hx | | | + + +------+ + + +------+--------+ + | Relation | Name | Status | Comments | + +------+--------+ + Social History + + + +--------+------+ [...] recent travel history available. | + + Last Filed Vital Signs + [...] Health Maintenance | Due Date | Last Done | Comments | + + + + + | Pneumococcal | | | | | vaccination (1 of 1 | 1 | | | | - PPSV23) | | | | + + + + + | Influenza (Flu) | | | | | vaccination (#1) | 9 | | | + + + + + Results Not on filefrom Last 3 Months Insurance + +--------+ +--------+-------+---------+--------+ | Payer | Benefi | Subscriber | Effect | Phone | Address | Type | | | t Plan | ID | greg | | | | | | / | | Dates | | | | | | Group | | | | | | + +--------+ +--------+-------+---------+--------+ | [employer]IM [employer]IMING [employer] MEDICAID | [employer] | [id number] | 11/28/19 | | | Medica | | | [place] | | 14-Pre | | | id | | | [place] | | sent | | | | + +--------+ +--------+-------+---------+--------+ + +--------+ +--------+ + + | Guarantor Name | Accoun | Relation to | Date | Phone | Billing Address | | | t Type | Patient | of | | | | | | | | | | + +--------+ +--------+ + + | Annabella Au | Person | Self | [birth year] | [address] | | | sameera/Jean-Claude | | 1975 | [phone] | [place] [address] | | | rene | | | 0 (Home) | | + +--------+ +--------+ + + Advance Directives + + + + + | Type | Date Recorded | Patient | Explanation | | | | Tie Worker | | + + + + + | Advance | | | | | Directives and | | | | | Living Will | | | | + + + + + | Power of | | | | | Head Scorer | | | | + + + + + + + + + + | Code Status | Date | Date | Comments | | | Activated | Inactivated | | + + + + + | Full Code | 08/01/2008 | 08/02/2008 | | | | 1:29 PM | 6:16 PM | | + + + + +
--- OUTSIDE RECORDS SUMMARY | ~2020-04-04 | XMS | Encounter Summary ---
Demographics + + + | Address | [address] | | | [place] [address] | + + + | Home Phone [...] + + + | Author | [place] [employer] [facility] | + + + | Organization | [facility] [employer] [facility] | + [...] Team Providers + +------+ + | Care Captain Cannery Tender Name | Role | Phone | [...] | | | | | hypertension | [place], [place] | [place], [place] | | | | | Procedures | [address] | [address] | | | | | REQUEST TO | Phone: | Phone: | | | | | SURGERY | [phone] | [phone] | | | | | PROFESSOR OF BIOCHEMISTRY | Fax: | Fax: | | | | | [place] INSTALL | [phone] | [phone] | | | | | SPINAL | [...] | | | Ave Mailcode: CH8N | [place], [place] | | | | | [facility] | [address] | | | | | and [place], | [phone] | | | | | [facility] | | | | | | Floor [place], [place] | | | | | | [address] | | | | | | [phone] | | | +--------+ + + + [...]
--- OUTSIDE RECORDS SUMMARY | ~2020-04-04 | XMS | Encounter Summary ---
Demographics + + + | Address | [address] | | | [place] [address] | + + + | Home Phone [...] + + + | Author | [place] [employer] [facility] | + + + | Organization | [facility] [employer] [facility] | + + + | Address | Unknown | + + + | Phone | Unavailable | + + + Support + + +---------+ + | Name | Relationship | Address | Phone | + + +---------+ + | Ruby Au | ECON | Unknown | | + + +---------+ + Care Team Providers + +------+ + | Care Two Way Radio Technician Name | Role | Phone [...] Refill Request | | 2012 | | [place]/Ophthalmol | MD [place] | | | | | [facility]aneen at [facility] [address] | | | | | | [address] Mailcode: | | | | | | CH11[address] [facility] | | | | | | Health and Healing, | | | | | | [facility] | | | | | | Floor [place], [place] | | | | | | [address] | | | | | | [phone] | | | +--------+--------+ + + + [...]
--- OUTSIDE RECORDS SUMMARY | ~2020-04-04 | XMS | Encounter Summary ---
Demographics + + + | Address | [address] | | | [place] [address] | + + + | Home Phone | | + + + | Preferred Language | Unknown | + + + | Marital Status | | + + + | Buddhism Affiliation | NON | + + + | Race | or | + + + | Ethnic Group | Not or | + + + Author + + + | Author | [place] [employer] [facility] | + + + | Organization | [facility] [employer] [facility] | + + + | Address | Unknown | + + + | Phone | Unavailable | + + + Support + + +---------+ + | Name | Relationship | Address | Phone | + + +---------+ + | Ruby Au | ECON | Unknown | | + + +---------+ + Care Team Providers + +------+ + | Care Truck Driver Instructor Name | Role | Phone | [...] [address] | | | | | [address] [facility] | [place], [place] | | | | | Health and Healing, | [address] | | | | | [address] | | | | | | Floor [place], [place] | | | | | | [address] | | | | | | [phone] | | | +--------+ + + + [...]
--- OUTSIDE RECORDS SUMMARY | ~2020-04-04 | XMS | Encounter Summary ---
Demographics + + + | Address | [address] | | | [place] [address] | + + + | Home Phone [...] + + | Author | [facility] | | | and [place] | + + + | Organization | [facility] | | [...] Team Providers + +------+ + | Care Gin Pole Operator Name | Role | Phone | + +------+ + PCP | Unavailable | + +------+ + Encounter Details +--------+ + + + + | Date | Type | Department | Care Team | Description | +--------+ + + + + | 07/19/ | Hospital | [facility] | Vern Rooney, | | | 1990 - | Encounter | MED CTR MED ONC | [address] | | | | | [address] | [place] | | | 07/21/ | | [place] [address] | [address] | | | 1990 | | [phone] | | | +--------+ + + + [...]
--- OUTSIDE RECORDS SUMMARY | ~2020-04-04 | XMS | Encounter Summary ---
Demographics + + + | Address | [address] | | | [place] [address] | + + + | Home Phone [...] + + | Author | [place] [employer] [facility] | + + + | Organization | [facility] [employer] [facility] | + + + | Address | Unknown | + + + | Phone | Unavailable | + + + Support + + +---------+ + | Name | Relationship | Address | Phone | + + +---------+ + | Ruby Au | ECON | Unknown | | + + +---------+ + Care Team Providers + +------+ + | Care Site Lead Name | Role | Phone | [...] | | | Ave Mailcode: CH8N | [place], [place] | | | | | [facility] | [address] | | | | | and Healing, | [phone] | | | | | [facility] | | | | | | Floor [place], [place] | | | | | | [address] | | | | | | [phone] | | | +--------+---------+ + + + [...]
--- OUTSIDE RECORDS SUMMARY | ~2020-04-04 | XMS | Encounter Summary ---
Demographics + + + | Address | [address] | | | [place] [address] | + + + | Home Phone | | + + + | Preferred Language | Unknown | + + + | Marital Status | | + + + | Yarsanism Affiliation | Unknown | + + + | Race | Unknown | + + + | Ethnic Group | Unknown | + + + Author + + + | Author | [facility] | | | and [place] | + + + | Organization | [facility] | | [...] Team Providers + +------+ + | Care Instrument Technologist Name | Role | Phone | + +------+ + PCP | Unavailable | + +------+ + Encounter Details +--------+ + + + + | Date | Type | Department | Care Team | Description | +--------+ + + + + | 10/18/ | Hospital | [facility] | | | | 1991 | Encounter | [facility] | | | | | | HEALTH SV [address] | | | | | | [place], | | | | | | [place] [address] | | | | | | [phone] | | | +--------+ + + + [...]
--- OUTSIDE RECORDS SUMMARY | ~2020-04-04 | XMS | Encounter Summary ---
Demographics + + + | Address | [address] | | | [place] [address] | + + + | Home Phone [...] + + + | Author | [place] [employer] [employer] [facility] | + + + | Organization | [facility] [employer] [facility] | + + + | Address | Unknown | + + + | Phone | Unavailable | + + + Support + + +---------+ + | Name | Relationship | Address | Phone | + + +---------+ + | Ruby Au | ECON | Unknown | | + + +---------+ + Care Team Providers + +------+ + | Care Manufacturing Engineer Paint Name | Role | Phone | + +------+ + | Dennis Maddox | PCP | | + +------+ + Encounter Details +--------+ + + + + | Date | Type | Department | Care Team | Description | +--------+ + + + + | 02/28/ | Emergency | [facility] Emergency | | | | 2013 - | | Department [address] | | | | | [address] | | | | 03/01/ | [facility] | | | | 2013 | | [place], [place] | | | | | | [address] | | | | | | [phone] | | | +--------+ + + + [...] + + documented as of this encounter Medications at Time of Discharge + + + +---------+ + + | Medication | Sig | Dispensed | Refills | Start | End Date | | | | | | Date | | + + + +---------+ + + | carisoprodol | Take 350 mg by mouth | | 0 | | | | (SOMA) 350 mg Oral | three times daily | | | | | | Tablet | as needed. | | | | | + + + +---------+ + + | ibuprofen 800 mg | Take 800 mg by mouth | | 0 | | | | Oral Tablet | every eight hours | | | | | | | as needed. | | | | | + + + +---------+ + + | losartan 100 mg | Take 100 mg by mouth | | 0 | | | | Oral Tablet | once daily. | | | | | + + + +---------+ + + | metFORMIN 500 mg | Take 500 mg by mouth | | 0 | | | | Oral tablet | two times daily. | | | | | + + + +---------+ + + | omeprazole | Take 20 mg by mouth | | 0 | | | | (PRILOSEC) 20 mg | two times daily. | | | | | | Oral Capsule, | | | | | | | Delayed | | | | | | | Release(E.C.) | | | | | | + + + +---------+ + + | topiramate 25 mg | Start with taking 1 | 240 Tab | 0 | 03/29/20 | | | Oral | tablet a day for 1 | | | 13 | | | tabletIndications: | week, then 2 tablets | | | | | | Pseudotumor cerebri | a day for 1 week, | | | | | | | than 3 tablets a day | | | | | | | for 1 week and then | | | | | | | 4 tablets a day. | | | | | + + + +---------+ + + documented as of this encounter Plan of Treatment Not on filedocumented as of this encounter Visit Diagnoses Not on filedocumented in this encounter"
--- OUTSIDE RECORDS SUMMARY | ~2020-04-04 | XMS | Encounter Summary ---
Demographics + + + | Address | [address] | | | [place] [address] | + + + | Home Phone [...] | Organization | [facility] [...] + +------+ + | Care Business Development Coordinator Name | Role | Phone | + +------+ + PCP | Unavailable | + +------+ + Encounter Details +--------+ + + + + | Date | Type | Department | Care Team | Description | +--------+ + + + + | 09/03/ | Hospital | [facility] | | | | 1991 | Encounter | [facility] | | | | | | HEALTH [address] | | | | | | [place], | | | | | | [place] [address] | | | | | | [phone] | | | +--------+ + + + [...]
--- OUTSIDE RECORDS SUMMARY | ~2020-04-04 | XMS | Encounter Summary ---
Demographics + + + | Address | [address] | | | [place] [address] | + + + | Home Phone [...] Organization | [facility] | | | and [place]ana [...] Team Providers + +------+ + | Care Tumbling Instructor Name | Role | Phone | [...] [address] | | | | | [address] [address] | [facility] | | | | | [address] [place] | [employer] [address] | | | | | [address] | [phone] | | | | | [phone] | | | +--------+ + + + [...]
--- OUTSIDE RECORDS SUMMARY | ~2020-04-04 | XMS | Encounter Summary ---
Demographics + + + | Address | [address] | | | [place] [address] | + + + | Home Phone | | + + + | Preferred Language | Unknown | + + + | Marital Status | | + + + | Advent Affiliation | Unknown | + + + | Race | Unknown | + + + | Ethnic Group | Unknown | + + + Author + + + | Author | [facility] | | | and [place] | + + + | Organization | [facility] | | | and [place] [...] Team Providers + +------+ + | Care Experienced Truck Driver Name | Role | Phone | + +------+ + PCP | Unavailable | + +------+ + Encounter Details +--------+ + + + + | Date | Type | Department | Care Team | Description | +--------+ + + + + | 07/06/ | Hospital | [facility] | Mirna Lambert | | | 2007 | Encounter | MED CTR EMERGENCY | MD Kwaku Gregory | | | | | [address] | [facility] | | | | | [place] | [place] [address] | | | | | [address] | [phone] | | | | | [phone] | | | +--------+ + + + [...]
--- OUTSIDE RECORDS SUMMARY | ~2020-04-04 | XMS | Encounter Summary ---
Demographics + + + | Address | [address] | | | [place] [address] | + + + | Home Phone [...] + + | Author | [facility] | | | and [place] | + + + | Organization | [facility] | | | and [place]ana [...] Team Providers + +------+ + | Care Music Publicist Name | Role | Phone | + +------+ + PCP | Unavailable | + +------+ + Encounter Details +--------+ + + + + | Date | Type | Department | Care Team | Description | +--------+ + + + + | 04/21/ | Hospital | [facility] | | | | 1995 | Encounter | MED CTR EMERGENCY | | | | | | CENTER [address] | | | | | | [place] | | | | | | [address] | | | | | | [phone] | | | +--------+ + + + [...]
--- OUTSIDE RECORDS SUMMARY | ~2020-04-04 | XMS | Encounter Summary ---
Demographics + + + | Address | [address] | | | [place] [address] | + + + | Home Phone [...] Organization | [facility] | | | and [place]ana [...] Providers + +------+ + | Care Ground Services Instructor Name | Role | Phone | + +------+ + PCP | Unavailable | + +------+ + Encounter Details +--------+ + + + + | Date | Type | Department | Care Team | Description | +--------+ + + + + | 04/24/ | Hospital | [facility] | | | | 2004 | Encounter | MED CTR EMERGENCY | | | | | | CENTER [address] | | | | | | [place] | | | | | | [address] | | | | | | [phone] | | | +--------+ + + + [...]
--- OUTSIDE RECORDS SUMMARY | ~2020-04-04 | XMS | Encounter Summary ---
Demographics + + + | Address | [address] | | | [place] [address] | + + + | Home Phone [...] Organization | [facility] | | | and [place] [...] Team Providers + +------+ + | Care Care Aide Name | Role | Phone | + +------+ + PCP | Unavailable | + +------+ + Encounter Details +--------+ + + + + | Date | Type | Department | Care Team | Description | +--------+ + + + + | 07/21/ | Hospital | [facility] | | | | 1990 | Encounter | MED CTR EMERGENCY | | | | | | CENTER [address] | | | | | | [place] | | | | | | [address] | | | | | | [phone] | | | +--------+ + + + [...]
--- OUTSIDE RECORDS SUMMARY | ~2020-04-04 | XMS | Encounter Summary ---
Demographics + + + | Address | [address] | | | [place] [address] | + + + | Home Phone [...] + + + | Author | [place] [email or web address] [facility] | + + + | Organization | [facility] [employer] [facility] | + [...] Team Providers + +------+ + | Care Trauma Registrar Name | Role | Phone | + [...] | | [address] Mailcode:OP14B | [place], | | | | | [facility] | [place] [address] | | | | | [place], [place] | | | | | | [address] | | | | | | [phone] | | | +--------+ + + + [...]
--- OUTSIDE RECORDS SUMMARY | ~2020-04-04 | XMS | Encounter Summary ---
Demographics + + + | Address | [address] | | | [place] [address] | + + + | Home Phone | | + + + | Preferred Language | Unknown | + + + | Marital Status | | + + + | Buddhism Affiliation | Unknown | + + + | Race | Unknown | + + + | Ethnic Group | Unknown | + + + Author + + + | Author | [facility] | | | and [place] | + + + | Organization | [facility] | | | and [...] Team Providers + +------+ + | Care Marketing Production Coordinator Name | Role | Phone | + +------+ + PCP | Unavailable | + +------+ + Encounter Details +--------+ + + + + | Date | Type | Department | Care Team | Description | +--------+ + + + + | 09/30/ | Hospital | [facility] | | | | 1991 | Encounter | MED CTR [facility]ENS | | | | | | HEALTH [address] | | | | | | [place], | | | | | | [place] [address] | | | | | | [phone] | | | +--------+ + + + [...]
--- OUTSIDE RECORDS SUMMARY | ~2020-04-04 | XMS | Encounter Summary ---
Demographics + + + | Address | [address] | | | [place] [address] | + + + | Home Phone | | + + + | Preferred Language | Unknown | + + + | Marital Status | | + + + | Christian Affiliation | NON | + + + | Race | or | + + + | Ethnic Group | Not or | + + + Author + + + | Author | [place] [employer] [facility] | + + + | Organization | [facility] [employer] [facility] | + + + | Address | Unknown | + + + | Phone | Unavailable | + + + Support + + +---------+ + | Name | Relationship | Address | Phone | + + +---------+ + | Ruby Au | ECON | Unknown | | + + +---------+ + Care Team Providers + +------+ + | Care Pocket Creaser Name | Role | Phone | + [...] Cerebri | | 2006 | Visit | [place] | [address] | (Primary Dx) | | | | Oculoplastics at | [place], [place] | | | | | [address] | [address] | | | | | [address] | [phone] | | | | | [facility] [place] | | | | | | [facility], [address] [place] [address] | | | | | | [place] [address] | | | | | | [phone] | | | +--------+---------+ + + + [...]
--- OUTSIDE RECORDS SUMMARY | ~2020-04-04 | XMS | Encounter Summary ---
Demographics + + + | Address | [address] | | | [place] [address] | + + + | Home Phone [...] + + + | Author | [place] [employer] [facility] | + + + | Organization | [facility] [facility] | + + + | Address | Unknown | + + + | Phone | Unavailable | + + + Support + + +---------+ + | Name | Relationship | Address | Phone | + + +---------+ + | Ruby Au | ECON | Unknown | | + + +---------+ + Care Team Providers + +------+ + | Care Hand Booked Folder And Stitcher Name | Role | Phone | + [...] | | | | | | [address] | | | | | | | [facility] | | | | | | | [place], | | | | | | | [address] [place] [address] | | | | | | | [place], [place] | | | | | | | [address] Phone: | | | | | | | [phone] | | | | | | | Fax: | | | | | | | [phone] | +--------+--------+ + + + + Encounter Details +--------+ + + + + | Date | Type | Department | Care Team | Description | +--------+ + + + + | 03/26/ | Procedure | [facility] | | Visual field testing | | 2012 | | [facility] | | | | | | [facility] at [facility] [address] | | | | [address] | | | | | | Mailcode: CH11P | | | | | | [facility] | | | | | | and Healing, | | | | | | | | | | | | [place], [place] | | | | | | [address] | | | | | | [phone] | | | +--------+ + + + [...] PDT Annabella Au was seen in the [facility] [place] [facility] Department today, 2012, for 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 documented in this encounter Plan of Treatment Not on filedocumented as of this encounter Procedures + +--------+ + + + | Procedure Name | Priori | Date/Time | Associated Diagnosis | Comments | | | ty | | | | + +--------+ + + + | [place] VISUAL FIELD | Routin | 03/26/2013 | [...]
--- OUTSIDE RECORDS SUMMARY | ~2020-04-04 | XMS | Encounter Summary ---
Demographics + + + | Address | [address] | | | [place] [address] | + + + | Home Phone [...] + + + | Author | [place] [employer] [facility] | + + + | Organization | [facility] [employer] [facility] | + [...] Team Providers + +------+ + | Care Epic Beacon Specialists Name | Role | Phone | + [...] | Headache | | 2005 | | Tresckow/Ophthalmol | MD Jordin | | | | | leon at [facility] [address] | | | | | | [address] [place] Mailcode: | | | | | | CH11P [facility] | | | | | | Health and Healing, | | | | | | Building | | | | | | Floor [place], [place] | | | | | | [address] | | | | | | [phone] | | | +--------+ + + + [...]
--- OUTSIDE RECORDS SUMMARY | ~2020-04-04 | XMS | Clinical Summary ---
Demographics + + + | Address | [address] | | | [place] [address] | + + + | Home Phone | | + + + | Preferred Language | Unknown | + + + | Marital Status | | + + + | Buddhism Affiliation | Unknown | + + + | Race | Unknown | + + + | Ethnic Group | Unknown | + + + Author + + + | Author | [employer] (Historical as of | | | 07-14-19) | + + + | Organization | [facility] [employer] (Historical as of | | | 07-14-19) [...] Team Providers + +------+ + | Care Outer Diameter Grinder Tool Name | Role | Phone | + [...] Vaccine: Influenza | | | | | (Season Ended) | 0 | | | + + + + [...] +------+-------+ + | MEDICAID | MEDICA | [id number] | | | [address] | | | [place] | | | | [place], [place] | | | [place] | | | | [address] | + +--------+ +------+-------+ + | [employer] | YELLOW | [id number] | | | | | PLANS | [...] | | sameera/Jean-Claude | | 1974 | [phone] | [place] | | | rene | | | [address] | [address] | + +--------+ +--------+ + +
--- OUTSIDE RECORDS SUMMARY | ~2020-04-04 | XMS | Encounter Summary ---
Demographics + + + | Address | [address] | | | [place] [address] | + + + | Home Phone [...] + + + | Author | [place] [employer] [facility] | + + + | Organization | [facility] [employer] [facility] | + [...] Team Providers + +------+ + | Care Passenger Agent Name | Role | Phone | [...] | | | Ave Mailcode: CH8N | [place], [place] | | | | | [facility] | [address] | | | | | and Healing, | [phone] | | | | | [facility] | | | | | | Floor [place], [place] | | | | | | [address] | | | | | | [phone] | | | +--------+ + + + [...]
--- OUTSIDE RECORDS SUMMARY | ~2020-04-04 | XMS | Encounter Summary ---
Demographics + + + | Address | [address] | | | [place] [address] | + + + | Home Phone [...] Organization | [facility] | [...] Team Providers + +------+ + | Care Tank Insulator Rubber Name | Role | Phone | + [...] [address] | | | | | [place] [address] | [facility] | | | | | [address] [place] | [place] [address] | | | | | [address] | [phone] | | | | | [phone] | | | +--------+ + + + [...]
--- OUTSIDE RECORDS SUMMARY | ~2020-04-04 | XMS | Encounter Summary ---
Demographics + + + | Address | [address] | | | [place] [address] | + + + | Home Phone | | + + + | Preferred Language | Unknown | + + + | Marital Status | | + + + | Gnosticism Affiliation | Unknown | + + + | Race | Unknown | + + + | Ethnic Group | Unknown | + + + Author + + + | Author | and [facility] | | | and [place] | + + + | Organization | and [facility] | | | and [...] Team Providers + +------+ + | Care Customer Experience Strategist Name | Role | Phone | + +------+ + PCP | Unavailable | + +------+ + Encounter Details +--------+ + + + + | Date | Type | Department | Care Team | Description | +--------+ + + + + | 10/10/ | Hospital | [facility] | | | | 1991 | Encounter | MED CTR WOMENS | | | | | | HEALTH SV [address] | | | | | | [place], | | | | | | [place] [address] | | | | | | [phone] | | | +--------+ + + + [...]
--- OUTSIDE RECORDS SUMMARY | ~2020-04-04 | XMS | Encounter Summary ---
Demographics + + + | Address | [address] | | | [place] [address] | + + + | Home Phone | | + + + | Preferred Language | Unknown | + + + | Marital Status | | + + + | Yazidism Affiliation | Unknown | + + + | Race | Unknown | + + + | Ethnic Group | Unknown | + + + Author + + + | Author | [facility] | | | and [place] | + + + | Organization | [facility] | | | [...] + +------+ + | Care Vice President Safety Name | Role | Phone | + +------+ + PCP | Unavailable | + +------+ + Encounter Details +--------+ + + + + | Date | Type | Department | Care Team | Description | +--------+ + + + + | 08/03/ | Hospital | [facility] | | | | 1990 | Encounter | MED CTR EMERGENCY | | | | | | CENTER [address] | | | | | | [place] | | | | | | [address] | | | | | | [phone] | | | +--------+ + + + [...]
--- OUTSIDE RECORDS SUMMARY | ~2020-04-04 | XMS | Encounter Summary ---
Demographics + + + | Address | [address] | | | [place] [address] | + + + | Home Phone [...] + + | Author | [place] [employer] [facility] | + + + | Organization | [facility] [employer] [facility] | + + + | Address | Unknown | + + + | Phone | Unavailable | + + + Support + + +---------+ + | Name | Relationship | Address | Phone | + + +---------+ + | Ruby Au | ECON | Unknown | | + + +---------+ + Care Team Providers + +------+ + | Care Camera Maker Name | Role | Phone | [...] | | | Ave Mailcode: CH8N | [place], [place] | | | | | [facility] | [address] | | | | | and Healing, | [phone] | | | | | [facility] | | | | | | Floor [facility] [place] | | | | | | [address] | | | | | | [phone] | | | +--------+ + + + [...]
--- OUTSIDE RECORDS SUMMARY | ~2020-04-04 | XMS | Encounter Summary ---
Demographics + + + | Address | [address] | | | [place] [address] | + + + | Home Phone [...] + + | Author | [facility] | | | and [place] | + + + | Organization | [facility] | | [...] Team Providers + +------+ + | Care Hatchery Supervisor Name | Role | Phone | + +------+ + PCP | Unavailable | + +------+ + Encounter Details +--------+ + + + + | Date | Type | Department | Care Team | Description | +--------+ + + + + | 08/01/ | Hospital | [facility] | | | | 1991 | Encounter | MED CTR WOMENS | | | | | | HEALTH SV [address] | | | | | | [place], | | | | | | [place] [address] | | | | | | [phone] | | | +--------+ + + + [...]
--- OUTSIDE RECORDS SUMMARY | ~2020-04-04 | XMS | Encounter Summary ---
Demographics + + + | Address | [address] | | | [place] [address] | + + + | Home Phone [...] Organization | [facility] | | | and [place]ana [...] Team Providers + +------+ + | Care Stained Glass Installer Name | Role | Phone | + +------+ + PCP | Unavailable | + +------+ + Encounter Details +--------+ + + + + | Date | Type | Department | Care Team | Description | +--------+ + + + + | 07/17/ | Hospital | [facility] | Domingo Darby, | | | 2010 | Encounter | HEART MED CTR | [address] | | | | | EMERGENCY CENTER | [place] [address] | | | | | [address] | [phone] | | | | | [place], [place] | | | | | | [address] | | | | | | [phone] | | | +--------+ + + + [...]
--- OUTSIDE RECORDS SUMMARY | ~2020-04-04 | XMS | Encounter Summary ---
Demographics + + + | Address | [address] | | | [place] [address] | + + + | Home Phone [...] + + + | Author | [place] [employer] [facility] | + + + | Organization | [facility] [employer] [facility] | + + + | Address | Unknown | + + + | Phone | Unavailable | + + + Support + + +---------+ + | Name | Relationship | Address | Phone | + + +---------+ + | Ruby Au | ECON | Unknown | | + + +---------+ + Care Team Providers + +------+ + | Care Set Designer Name | Role | Phone | + [...] Cerebri | | 2005 | Visit | [place] | | (Primary Dx) | | | | Neuro-Ophthalmology | | | | | | [address] [facility] | | | | | | Mailcode: PATTI | | | | | | [place] [address] | | | | | | [phone] | | | +--------+---------+ + + + [...] Brad Currie MD Neuro-Ophthalmology and Cerebrovascular Disease [place] Supervisor of Ophthalmology, Neurology, and Neurosurgery documented [...]
--- OUTSIDE RECORDS SUMMARY | ~2020-04-04 | XMS | Encounter Summary ---
Demographics + + + | Address | [address] | | | [place] [address] | + + + | Home Phone [...] + + + | Author | [place] [employer] [facility] | + + + | Organization | [facility] [employer] [facility] [...] Team Providers + +------+ + | Care Attenuator Name | Role | Phone | + [...] Rd | | | | | | [place], [place] | | | | | | [address] | | | +--------+ + + + [...]
--- OUTSIDE RECORDS SUMMARY | ~2020-04-04 | XMS | Encounter Summary ---
Demographics + + + | Address | [address] | | | [place] [address] | + + + | Home Phone [...] + + + | Author | [place] [employer]iliThink Science [facility] | + + + | Organization | [facility] Triea Systems [facility] | + [...] Providers + +------+ + | Care Assistant Teacher Name | Role | Phone | [...] Other | | 2005 | | [facility] | [address] | | | | | [address] Mailcode:OP14B | [place], [place] | | | | | [facility] | [address] | | | | | [place], [place] | | | | | | [address] | | | | | | [phone] | | | +--------+ + + + [...]
--- OUTSIDE RECORDS SUMMARY | ~2020-04-04 | XMS | Encounter Summary ---
Demographics + + + | Address | [address] | | | [place] [address] | + + + | Home Phone [...] + + + | Author | [place] [facility] | + + + | Organization | [facility] [employer] [facility] [...] Providers + +------+ + | Care Site Supervisor Name | Role | Phone | [...] | | | Ave Mailcode: CH8N | [place], [place] | | | | | [facility] | [address] | | | | | and Healing, | [phone] | | | | | [facility] | | | | | | Floor [place], [place] | | | | | | [address] | | | | | | [phone] | | | +--------+ + + + [...]
--- OUTSIDE RECORDS SUMMARY | ~2020-04-04 | XMS | Encounter Summary ---
Demographics + + + | Address | [address] | | | [place] [address] | + + + | Home Phone | | + + + | Preferred Language | Unknown | + + + | Marital Status | | + + + | Yazdanism Affiliation | NON | + + + | Race | or | + + + | Ethnic Group | Not or | + + + Author + + + | Author | [place] [employer] [facility] | + + + | Organization | [facility] 24PageBooks Science [facility] | + + + | Address | Unknown | + + + | Phone | Unavailable | + + + Support + + +---------+ + | Name | Relationship | Address | Phone | + + +---------+ + | Ruby Au | ECON | Unknown | | + + +---------+ + Care Team Providers + +------+ + | Care Enterprise Systems Architect Name | Role | Phone | [...] Cerebri | | 2006 | Visit | [place] | | (Primary Dx) | | | | Neuro-Ophthalmology | | | | | | [address] [facility] | | | | | | Mailcode: CE | | | | | | [place] [address] | | | | | | [phone] | | | +--------+---------+ + + + [...] Referred by: CASIMIRO PAYTON MD [address] [place] [address] Symptoms: She has not been taking her [...] Brad Currie MD Neuro-Ophthalmology and Cerebrovascular Disease Solar Installation Foreman of Ophthalmology, Neurology, and Neurosurgery documented in this encounter Plan of Treatment + + +--------+ + + | Name | Type | Priori | Associated Diagnoses | Order Schedule | | | | ty | | | + + +--------+ + + | [place] VISUAL FIELD | Procedures | Routin | Pseudotumor | Ordered: 12/19/2006 | | EXAM,EXTENDED | | e | Cerebri | | + + +--------+ + + documented as of this encounter Visit Diagnoses + + | Diagnosis | + + | Pseudotumor cerebri - Primary Benign intracranial hypertension | + + documented in this encounter"
--- OUTSIDE RECORDS SUMMARY | ~2020-04-04 | XMS | Encounter Summary ---
Demographics + + + | Address | [address] | | | [place] [address] | + + + | Home Phone [...] | Organization | [facility] [...] Team Providers + +------+ + | Care Headliner Installer Name | Role | Phone | + +------+ + PCP | Unavailable | + +------+ + Encounter Details +--------+ + + + + | Date | Type | Department | Care Team | Description | +--------+ + + + + | 04/18/ | Hospital | [facility] | | | | 1991 | Encounter | MED CTR EMERGENCY | | | | | | CENTER [address] | | | | | | [place] | | | | | | [address] | | | | | | [phone] | | | +--------+ + + + [...]
--- OUTSIDE RECORDS SUMMARY | ~2020-04-04 | XMS | Encounter Summary ---
Demographics + + + | Address | [address] | | | [place] [address] | + + + | Home Phone [...] | Organization | [facility]ers [...] Providers + +------+ + | Care Human Services Professional Name | Role | Phone | + +------+ + PCP | Unavailable | + +------+ + Encounter Details +--------+ + + + + | Date | Type | Department | Care Team | Description | +--------+ + + + + | 05/21/ | Hospital | [facility] | | | | 1991 | Encounter | MED CTR WOMENS | | | | | | HEALTH [address] | | | | | | [place], | | | | | | [place] [address] | | | | | | [phone] | | | +--------+ + + + [...]
--- OUTSIDE RECORDS SUMMARY | ~2020-04-04 | XMS | Encounter Summary ---
[...] + + + | Author | [place] Wakie/Bud[employer] [facility] | + + + | Organization | [facility] [employer] [facility] [...] Providers + +------+ + | Care Metal Fabricating Inspector Name | Role | Phone | [...] Request (Pt | | 2006 | | [place] | Cassi Hammer | requests more pain | | | | Oculoplastics at | [place], [place] | medication) | | | | [address] | [address] | | | | | [address] | [phone] | | | | | Eye [place] | | | | | | [facility] floor | | | | | | [place] [address] | | | | | | [phone] | | | +--------+--------+ + + + [...]
--- OUTSIDE RECORDS SUMMARY | ~2020-04-04 | XMS | Encounter Summary ---
Demographics + + + | Address | [address] | | | [place] [address] | + + + | Home Phone [...] Organization | [facility] | [...] Team Providers + +------+ + | Care Dispatcher Service Name | Role | Phone | + +------+ + PCP | Unavailable | + +------+ + Encounter Details +--------+ + + + + | Date | Type | Department | Care Team | Description | +--------+ + + + + | 07/24/ | Hospital | [facility] | | | | 1990 | Encounter | MED CTR EMERGENCY | | | | | | CENTER [address] | | | | | | [place] | | | | | | [address] | | | | | | [phone] | | | +--------+ + + + [...]
--- OUTSIDE RECORDS SUMMARY | ~2020-04-04 | XMS | Encounter Summary ---
Demographics + + + | Address | [address] | | | [place] [address] | + + + | Home Phone [...] + + + | Author | [place] [employer]Duck[employer] Science [facility] | + + + | Organization | [facility] [employer]Span Science [facility] | + + + | Address | Unknown | + + + | Phone | Unavailable | + + + Support + + +---------+ + | Name | Relationship | Address | Phone | + + +---------+ + | Ruby Au | ECON | Unknown | | + + +---------+ + Care Team Providers + +------+ + | Care Medical Insurance Coding Specialist Name | Role | Phone [...] | | | Ave Mailcode: CH8N | [place], [place] | | | | | [facility] | [address] | | | | | and [place], | [phone] | | | | | [facility] | | | | | | Floor [place], [place] | | | | | | [address] | | | | | | [phone] | | | +--------+ + + + [...]
--- OUTSIDE RECORDS SUMMARY | ~2020-04-04 | XMS | Clinical Summary ---
Demographics + + + | Address | [address] | | | [place] [address] | + + + | Home Phone [...] Team Providers + +------+ + | Care Bellperson Name | Role | Phone | + +------+ + | Dennis Maddox | PCP | | + +------+ + Source Comments REBECA is fully live on both [facility] and [facility] & Count includes the [facility] Allergies + + + + [...] | | | + +--------+ +--------+-------+---------+--------+ | OVEN LABORER MEDICAID | OVEN LABORER | xxxxxxxx | 11/28/19 | | | [...] | 1975 | [phone] | [place] [address] | | | rene | | | 0 (Home) | | + +--------+ +--------+ + + Advance Directives + + + + + | Type | Date Recorded | Patient | Explanation | | | | Crayon Sorting Machine Feeder | | + + + + + | Advance | | | | | Directives and | | | | | Living Will | | | | + + + + + | Power of | | | | | Search Engine Optimization Consultant | | | | + + + [...]
--- OUTSIDE RECORDS SUMMARY | ~2020-04-04 | XMS | Encounter Summary ---
Demographics + + + | Address | [address] | | | [place] [address] | + + + | Home Phone [...] + + + | Author | [place] [email or web address] [facility] | + + + | Organization | [facility] | + + [...] Providers + +------+ + | Care Special Day Class Teacher Name | Role | Phone | [...] Cerebri; | | 2006 | Visit | Parks/Ophthalmol | | Papilledema | | | | ogy at [facility] [address] | | Associated with | | | | [address] Mailcode: | | Increased | | | | CH11P Center for | | Intracranial | | | | Health and Healing, | | Pressure; Transient | | | | Building | | Visual Loss | | | | Floor [place], [place] | | | | | | [address] | | | | | | [phone] | | | +--------+---------+ + + + [...] HPI: 31 y.o. year old female from [place] : Patient presents with: Transient visual loss [...] seconds; these occur 2-3 x per w [place]. Hobbies: Tobacco use: reports that she has [...] patient to continue follow-up for psuedotumor w [facility] neuro-ophth. [facility] up at [facility] prn new symptoms or complaints. WADE Jensen [...]
--- OUTSIDE RECORDS SUMMARY | ~2020-04-04 | XMS | Encounter Summary ---
Demographics + + + | Address | [address] | | | [place] [address] | + + + | Home Phone [...] + | Organization | [facility] | | | and [place] [...] + +------+ + | Care Human Services Program Specialist Name | Role | Phone | + +------+ + PCP | Unavailable | + +------+ + Encounter Details +--------+ + + + + | Date | Type | Department | Care Team | Description | +--------+ + + + + | 10/20/ | Hospital | [facility] | | | | 1999 | Encounter | MED CTR EMERGENCY | | | | | | CENTER [address] | | | | | | [place] | | | | | | [address] | | | | | | [phone] | | | +--------+ + + + [...]
--- OUTSIDE RECORDS SUMMARY | ~2020-04-04 | XMS | Encounter Summary ---
Demographics + + + | Address | [address] | | | [place] [address] | + + + | Home Phone [...] | Organization | [facility] | | | and [...] Providers + +------+ + | Care Fusing Line Inspector Name | Role | Phone | + +------+ + PCP | Unavailable | + +------+ + Encounter Details +--------+ + + + + | Date | Type | Department | Care Team | Description | +--------+ + + + + | 09/07/ | Hospital | [facility] | | | | 1991 | Encounter | MED CTR EMERGENCY | | | | | | CENTER [address] | | | | | | [place] | | | | | | [address] | | | | | | [phone] | | | +--------+ + + + [...]
--- OUTSIDE RECORDS SUMMARY | ~2020-04-04 | XMS | Encounter Summary ---
Demographics + + + | Address | [address] | | | [place] [address] | + + + | Home Phone [...] + + + | Author | [place] [employer] Science [facility] | + + + | Organization | [facility] [employer] Science [facility] [...] Team Providers + +------+ + | Care Evs Attendant Name | Role | Phone | [...] [facility] [address] | [address] | | | | | [address] Mailcode: CH8N | [address] [facility] | | | | | [facility] | Rd [place], [place] | | | | | and Healing, | [address] | | | | | Building | [phone] | | | | | Floor [place], [place] | | | | | | [address] | | | | | | [phone] | | | +--------+ + + + [...]
--- OUTSIDE RECORDS SUMMARY | ~2020-04-04 | XMS | Encounter Summary ---
Demographics + + + | Address | [address] | | | [place] [address] | + + + | Home Phone [...] + + + | Author | [place] [employer] [facility] | + + + | Organization | [facility] Mobile Location, IP Science [facility] | + + + | Address | Unknown | + + + | Phone | Unavailable | + + + Support + + +---------+ + | Name | Relationship | Address | Phone | + + +---------+ + | Ruby Au | ECON | Unknown | | + + +---------+ + Care Team Providers + +------+ + | Care Telephone Triage Nurse Name | Role | Phone | [...] Refill Request | | 2007 | | [facility] | [place] JOSE | | | | | and Healing [address] | Neurosurgery [address] | | | | | [address] Mailcode: | [address] | | | | | CH8N [facility] | [place], [place] | | | | | Health and Healing, | [address] | | | | | Building | | | | | | Floor [place], [place] | | | | | | [address] | | | | | | [phone] | | | +--------+--------+ + + + [...]
--- OUTSIDE RECORDS SUMMARY | ~2020-04-04 | XMS | Encounter Summary ---
Demographics + + + | Address | [address] | | | [place] [address] | + + + | Home Phone [...] + + + | Author | [place] [employer]Razr Science [facility] | + + + | Organization | [facility] Reebee Science [facility] | + [...] Team Providers + +------+ + | Care Rental Representative Name | Role | Phone | + +------+ + | Brenden Benavides MD | PCP | | + +------+ + Encounter Details +--------+ + + + + | Date | Type | Department | Care Team | Description | +--------+ + + + + | 02/23/ | Telephone | [facility] | Brad Currie MD | | | 2006 | | [place] | | | | | | Neuro-Ophthalmology | | | | | | [address] [facility] | | | | | | Mailcode: PATTI | | | | | | [place] [address] | | | | | | [phone] | | | +--------+ + + + [...]
--- OUTSIDE RECORDS SUMMARY | ~2020-04-04 | XMS | Encounter Summary ---
Demographics + + + | Address | [address] | | | [place] [address] | [...] + + + | Author | [place] [employer] [facility] | + + + | Organization | [facility] | + + + | Address | Unknown | + + + | Phone | Unavailable | + + + Support + + +---------+ + | Name | Relationship | Address | Phone | + + +---------+ + | Ruby Au | ECON | Unknown | | + + +---------+ + Care Team Providers + +------+ + | Care Lens Grinder Name | Role | Phone | [...] | | | | | Physician's | [place], [place] | | | | | [place], [facility] floor | [address] | | | | | [place], [place] | [phone] | | | | | [address] | | | | | | [phone] | | | +--------+ + + + [...]
--- OUTSIDE RECORDS SUMMARY | ~2020-04-04 | XMS | Encounter Summary ---
Demographics + + + | Address | [address] | | | [place] [address] | + + + | Home Phone [...] | Organization | [facility] | | | and [place] [...] Team Providers + +------+ + | Care Tappet Adjuster Name | Role | Phone | + +------+ + PCP | Unavailable | + +------+ + Encounter Details +--------+ + + + + | Date | Type | Department | Care Team | Description | +--------+ + + + + | 04/24/ | Hospital | [facility] | | | | 1991 | Encounter | MED CTR EMERGENCY | | | | | | CENTER [address] | | | | | | [place] | | | | | | [address] | | | | | | [phone] | | | +--------+ + + + [...]
--- OUTSIDE RECORDS SUMMARY | ~2020-04-04 | XMS | Encounter Summary ---
Demographics + + + | Address | [address] | | | [place] [address] | + + + | Home Phone [...] Organization | [facility] | | | and [place] [...] Providers + +------+ + | Care Certified Veterinary Technician Name | Role | Phone | + +------+ + PCP | Unavailable | + +------+ + Encounter Details +--------+ + + + + | Date | Type | Department | Care Team | Description | +--------+ + + + + | 10/22/ | Hospital | [facility] | | | | 1991 - | Encounter | MED CTR WOMENS | | | | | | [facility] [address] | | | | 10/24/ | | [place], | | | | 1991 | | [place] [address] | | | | | | [phone] | | | +--------+ + + + [...]
--- OUTSIDE RECORDS SUMMARY | ~2020-04-04 | XMS | Encounter Summary ---
Demographics + + + | Address | [address] | | | [place] [address] | + + + | Home Phone [...] + + + | Author | [place] [employer] [facility] | + + + | Organization | [facility] Broadcast.mobi [facility] | + [...] Providers + +------+ + | Care Supervisor Blast Furnace Name | Role | Phone | + [...] | | | Ave Mailcode: CH8N | [place], [place] | | | | | [facility] | [address] | | | | | and [facility], | [phone] | | | | | [facility] | | | | | | Floor [place], [place] | | | | | | [address] | | | | | | [phone] | | | +--------+ + + + [...]
--- OUTSIDE RECORDS SUMMARY | ~2020-04-04 | XMS | Encounter Summary ---
Demographics + + + | Address | [address] | | | [place] [address] | + + + | Home Phone [...] + + + | Author | [place] [employer]ox[employer] [facility] | + + + | Organization | [facility] [employer] Zhang[employer] Science [facility] | + + + | Address | Unknown | + + + | Phone | Unavailable | + + + Support + + +---------+ + | Name | Relationship | Address | Phone | + + +---------+ + | Ruby Au | ECON | Unknown | | + + +---------+ + Care Team Providers + +------+ + | Care Occupational Health Physician Name | Role | Phone | + [...] | Headache | | 2015 | | [place] | [address] | | | | | Neuro-Ophthalmology | [facility] [place] | | | | | at [facility] [address] | [address] | | | | | Ave Mailcode: [facility] | [phone] | | | | | [facility] | | | | | | and Healing, | | | | | | Building | | | | | | Floor [place], [place] | | | | | | [address] | | | | | | [phone] | | | +--------+ + + + [...]
--- OUTSIDE RECORDS SUMMARY | ~2020-04-04 | XMS | Encounter Summary ---
Demographics + + + | Address | [address] | | | [place] [address] | + + + | Home Phone [...] + + + | Author | [place] [employer] Science [facility] | + + + | Organization | [facility] Smart Device Media [facility] | + [...] Team Providers + +------+ + | Care Dot Net Developer Name | Role | Phone [...] | Telephone | Neurosurgery at | Sam Perdoza MD | Possible Shunt | | 2012 | | [facility] [address] | [address] | [place] | | | | Ave Mailcode: CH8N | [place], [place] | | | | | [facility] | [address] | | | | | and Healing, | [phone] | | | | | [facility] | | | | | | Floor [place], [place] | | | | | | [address] | | | | | | [phone] | | | +--------+ + + + [...]
--- OUTSIDE RECORDS SUMMARY | ~2020-04-04 | XMS | Encounter Summary ---
Demographics + + + | Address | [address] | | | [place] [address] | + + + | Home Phone [...] + | Organization | [facility] | [...] Providers + +------+ + | Care Manufacturing Mechanic Name | Role | Phone | + +------+ + PCP | Unavailable | + +------+ + Encounter Details +--------+ + + + + | Date | Type | Department | Care Team | Description | +--------+ + + + + | 05/15/ | Hospital | [facility] | | | | 1991 | Encounter | MED CTR XRAY [address] | | | | | | [address] | | | | | | [place] [address] | | | | | | [phone] | | | +--------+ + + + [...]
--- OUTSIDE RECORDS SUMMARY | ~2020-04-04 | XMS | Encounter Summary ---
Demographics + + + | Address | [address] | | | [place] [address] | + + + | Home Phone [...] + + | Author | [place] [employer] [facility] | + + + | Organization | [facility] Zymet[employer] Science [facility] [...] Team Providers + +------+ + | Care Welding Tester Name | Role | Phone | [...] Refill Request | | 2006 | | [place] | [address] | | | | | Oculoplastics at | Rd [place], [place] | | | | | [facility] [address] | [address] | | | | | [address] | | | | | | Eye [place] | | | | | | [facility], [address] [place] [address] | | | | | | [place] [address] | | | | | | [phone] | | | +--------+ + + + [...]
--- OUTSIDE RECORDS SUMMARY | ~2020-04-04 | XMS | Encounter Summary ---
Demographics + + + | Address | [address] | | | [place] [address] | + + + | Home Phone [...] + + | Author | [place] [employer] [facility] | + + + | Organization | [facility] blogTV Science [facility] | + + + | Address | Unknown | + + + | Phone | Unavailable | + + + Support + + +---------+ + | Name | Relationship | Address | Phone | + + +---------+ + | Ruby Au | ECON | Unknown | | + + +---------+ + Care Team Providers + +------+ + | Care Anthropological Linguist Name | Role | Phone | + [...] Other | | 2005 | | [facility] | [address] | | | | | [address] Mailcode:OP14B | [place], [place] | | | | | [facility] | [address] | | | | | [place], [place] | | | | | | [address] | | | | | | [phone] | | | +--------+ + + + [...]
--- OUTSIDE RECORDS SUMMARY | ~2020-04-04 | XMS | Encounter Summary ---
Demographics + + + | Address | [address] | | | [place] [address] | + + + | Home Phone [...] + + + | Author | [place] [employer] Science [facility] | + + + | Organization | [facility] SOAK (Smart Operational Agricultural toolKit) Science [facility] | + + + | Address | Unknown | + + + | Phone | Unavailable | + + + Support + + +---------+ + | Name | Relationship | Address | Phone | + + +---------+ + | Ruyb Au | ECON | Unknown | | + + +---------+ + Care Team Providers + +------+ + | Care Personnel Manager Name | Role | Phone | [...] | | | | | hypertension | [place], [place] | [place], [place] | | | | | Procedures | [address] | [address] | | | | | REQUEST TO | Phone: | Phone: | | | | | SURGERY | [phone] | [phone] | | | | | METAL MOLD DRESSER | Fax: | Fax: | | | | | MA INSTALL | [phone] | [phone] | | | | | SPINAL | [...] | | | Ave Mailcode: CH8N | [place], [place] | | | | | [facility] | [address] | | | | | and [place], | [phone] | | | | | [facility] | | | | | | Floor [place], [place] | | | | | | [address] | | | | | | [phone] | | | +--------+ + + + [...]
--- OUTSIDE RECORDS SUMMARY | ~2020-04-04 | XMS | Encounter Summary ---
Demographics + + + | Address | [address] | | | [place] [address] | + + + | Home Phone [...] + + | Organization | [facility] | | | and [...] Team Providers + +------+ + | Care Sap Ppm Consultant Name | Role | Phone | + +------+ + PCP | Unavailable | + +------+ + Encounter Details +--------+ + + + + | Date | Type | Department | Care Team | Description | +--------+ + + + + | 04/24/ | Hospital | [facility] | | | | 2004 | Encounter | MED CTR EMERGENCY | | | | | | CENTER [address] | | | | | | [place] | | | | | | [address] | | | | | | [phone] | | | +--------+ + + + [...]
--- OUTSIDE RECORDS SUMMARY | ~2020-04-04 | XMS | Encounter Summary ---
Demographics + + + | Address | [address] | | | [place] [address] | + + + | Home Phone [...] + + | Author | [facility] | | | and [place] | + + + | Organization | [facility] | | | and [place] [...] Team Providers + +------+ + | Care Soft Sugar Supervisor Name | Role | Phone | + +------+ + PCP | Unavailable | + +------+ + Encounter Details +--------+ + + + + | Date | Type | Department | Care Team | Description | +--------+ + + + + | 10/10/ | Hospital | [facility] | | | | 1991 | Encounter | MED CTR WOMENS | | | | | | HEALTH SV [address] | | | | | | [place], | | | | | | [place] [address] | | | | | | [phone] | | | +--------+ + + + [...]
--- OUTSIDE RECORDS SUMMARY | ~2020-04-04 | XMS | Encounter Summary ---
Demographics + + + | Address | [address] | | | [place] [address] | + + + | Home Phone [...] | [facility] | | | and [...] Providers + +------+ + | Care Fish Cutting Machine Operator Name | Role | Phone | + +------+ + PCP | Unavailable | + +------+ + Encounter Details +--------+ + + + + | Date | Type | Department | Care Team | Description | +--------+ + + + + | 05/28/ | Hospital | [facility] | | | | 1991 | Encounter | MED CTR EMERGENCY | | | | | | CENTER [address] | | | | | | [place] | | | | | | [address] | | | | | | [phone] | | | +--------+ + + + [...]
--- OUTSIDE RECORDS SUMMARY | ~2020-04-04 | XMS | Encounter Summary ---
Demographics + + + | Address | [address] | | | [place] [address] | + + + | Home Phone [...] + | Organization | [facility] | [...] Providers + +------+ + | Care Inspector Electromechanical Name | Role | Phone | + +------+ + PCP | Unavailable | + +------+ + Encounter Details +--------+ + + + + | Date | Type | Department | Care Team | Description | +--------+ + + + + | 01/01/ | Hospital | [facility] | [place], | | | 2009 | Encounter | MED CTR EMERGENCY | Brad Yu MD [address] | | | | | [place] [address] | [facility] | | | | | [place] | [place] [address] | | | | | [address] | [phone] | | | | | [phone] | | | +--------+ + + + [...]
--- OUTSIDE RECORDS SUMMARY | ~2020-04-04 | XMS | Encounter Summary ---
Demographics + + + | Address | [address] | | | [place] [address] | + + + | Home Phone [...] + + + | Author | [place] [facility] | + + + | Organization | [facility] [facility] | + + + | Address | Unknown | + + + | Phone | Unavailable | + + + Support + + +---------+ + | Name | Relationship | Address | Phone | + + +---------+ + | Ruby Au | ECON | Unknown | | + + +---------+ + Care Team Providers + +------+ + | Care Securities Attorney Name | Role | Phone | [...] | | Ave Mailcode: CH8N | [place], [place] | | | | | [facility] | [address] | | | | | and Healing, | [phone] | | | | | [facility] [address] | | | | | | Floor [place], [place] | | | | | | [address] | | | | | | [phone] | | | +--------+ + + + [...]
--- OUTSIDE RECORDS SUMMARY | ~2020-04-04 | XMS | Encounter Summary ---
Demographics + + + | Address | [address] | | | [place] [address] | + + + | Home Phone [...] | Organization | [facility] | | | and [...] Providers + +------+ + | Care Care Team Coordinator Scheduler Name | Role | Phone | + +------+ + PCP | Unavailable | + +------+ + Encounter Details +--------+ + + + + | Date | Type | Department | Care Team | Description | +--------+ + + + + | 04/20/ | Hospital | [facility] | | | | 1995 | Encounter | MED CTR EMERGENCY | | | | | | CENTER [address] | | | | | | [place] | | | | | | [address] | | | | | | [phone] | | | +--------+ + + + [...]
--- OUTSIDE RECORDS SUMMARY | ~2020-04-04 | XMS | Encounter Summary ---
Demographics + + + | Address | [address] | | | [place] [address] | + + + | Home Phone [...] + + + | Author | [place] [employer] [facility] | + + + | Organization | [facility] [employer] [facility] | + + + | Address | Unknown | + + + | Phone | Unavailable | + + + Support + + +---------+ + | Name | Relationship | Address | Phone | + + +---------+ + | Ruby Au | ECON | Unknown | | + + +---------+ + Care Team Providers + +------+ + | Care Membership Solicitor Name | Role | Phone | + [...] | | | | | cerebri | [address] | | | | | | Procedures | Ave | | | | | | CONSULT TO | [place], [place] | | | | | | [facility] | [address] | | | | | | | Phone: | | | | | | | [phone] | | | | | | | Fax: | | | | | | | [phone] | | +--------+--------+ + + + + [...] Cerebri | | 2005 | Visit | [facility] | [address] | (Primary Dx) | | | | Rd Mailcode:OP14B | [place], [place] | | | | | [facility] | [address] | | | | | [place], [place] | [phone] | | | | | [address] | | | | | | [phone] | | | +--------+---------+ + + + [...] pressu re. Referral to Dr. Maloney in [place] where a lumboperitoneal shunt was placed and subsequently explanted due to infection and migration of the catheter tip from the peritoneal space. She feels that her symptoms were helped at the time of the placement of the shunt; the head aches and visual problems have worsened since shunt removal. She has opted to come to [facility] rather than to return to [place] based on travel convenience. Review of Systems: [...] brain without; Neuro-ophthalmology consultation. [facility] Plan of Treatment Not on [...] | | + +---------+ + + | [facility] DEPARTMENT OF | | | | | RADIOLOGY | | | | + +---------+ + + documented in this encounter Visit Diagnoses + + | Diagnosis | + + | Pseudotumor cerebri - Primary Benign intracranial hypertension | + + documented in this encounter
--- OUTSIDE RECORDS SUMMARY | ~2020-04-04 | XMS | Encounter Summary ---
Demographics + + + | Address | [address] | | | [place] [address] | + + + | Home Phone [...] | [facility] | | | and [place] [...] Providers + +------+ + | Care Portfolio Manager Name | Role | Phone | + +------+ + PCP | Unavailable | + +------+ + Encounter Details +--------+ + + + + | Date | Type | Department | Care Team | Description | +--------+ + + + + | 10/22/ | Hospital | [facility] | | | | 1991 - | Encounter | MED CTR WOMENS | | | | | | [facility] [address] | | | | 10/24/ | | [place], | | | | 1991 | | [place] [address] | | | | | | [phone] | | | +--------+ + + + [...]
--- OUTSIDE RECORDS SUMMARY | ~2020-04-04 | XMS | Encounter Summary ---
Demographics + + + | Address | [address] | | | [place] [address] | + + + | Home Phone [...] + + + | Author | [place] [employer] [facility] | + + + | Organization | [facility] [employer] [facility] | + + + | Address | Unknown | + + + | Phone | Unavailable | + + + Support + + +---------+ + | Name | Relationship | Address | Phone | + + +---------+ + | Ruby Au | ECON | Unknown | | + + +---------+ + Care Team Providers + +------+ + | Care Associate Theatre Professor Name | Role | Phone | + +------+ + | Yeison Simms MD | PCP | Unavailable | + +------+ + Reason for Visit + + + | Reason | Comments | + + + | Refill Request | refill on [place] | + + + Encounter Details +--------+--------+ + + + | Date | Type | Department | Care Team | Description | +--------+--------+ + + + | 08/27/ | Refill | Neurosurgery at | Sam Pedroza MD | Refill Request | | 2007 | | [facility] [address] | [address] | (refill on [place]) | | | | Ave Mailcode: CH8N | [place], [place] | | | | | [facility] | [address] | | | | | and Healing, | [phone] | | | | | [facility] | | | | | | Floor [place], [place] | | | | | | [address] | | | | | | [phone] | | | +--------+--------+ + + + [...]
--- OUTSIDE RECORDS SUMMARY | ~2020-04-04 | XMS | Encounter Summary ---
Demographics + + + | Address | [address] | | | [place] [address] | + + + | Home Phone [...] Organization | [facility] [...] Team Providers + +------+ + | Care Pull Up Hand Name | Role | Phone | + +------+ + PCP | Unavailable | + +------+ + Encounter Details +--------+ + + + + | Date | Type | Department | Care Team | Description | +--------+ + + + + | 05/15/ | Hospital | [facility] | | | | 1991 | Encounter | MED CTR XRAY [address] | | | | | | [place] | | | | | | [place] [address] | | | | | | [phone] | | | +--------+ + + + [...]
--- OUTSIDE RECORDS SUMMARY | ~2020-04-04 | XMS | Encounter Summary ---
Demographics + + + | Address | [address] | | | [place] [address] | + + + | Home Phone [...] Organization | [facility] | | [...] Team Providers + +------+ + | Care Information Security Name | Role | Phone | + +------+ + PCP | Unavailable | + +------+ + Encounter Details +--------+ + + + + | Date | Type | Department | Care Team | Description | +--------+ + + + + | 08/10/ | Hospital | [facility] | | | | 1990 | Encounter | MED CTR EMERGENCY | | | | | | CENTER [address] | | | | | | [place] | | | | | | [address] | | | | | | [phone] | | | +--------+ + + + [...]
--- OUTSIDE RECORDS SUMMARY | ~2020-04-04 | XMS | Encounter Summary ---
Demographics + + + | Address | [address] | | | [place] [address] | + + + | Home Phone [...] | Organization | [facility] [...] Team Providers + +------+ + | Care Architect In Training Name | Role | Phone | + +------+ + PCP | Unavailable | + +------+ + Encounter Details +--------+ + + + + | Date | Type | Department | Care Team | Description | +--------+ + + + + | 07/12/ | Hospital | [facility] | Conversion | | | 2010 | Encounter | HEART MED CTR | Transaction, | | | | | EMERGENCY CENTER | Provider Unknown | | | | | [address] | | | | | | [place] | (Fax) | | | | | [address] | | | | | | [phone] | | | +--------+ + + + [...]
--- OUTSIDE RECORDS SUMMARY | ~2020-04-04 | XMS | Encounter Summary ---
Demographics + + + | Address | [address] | | | [place] [address] | + + + | Home Phone [...] + + + | Author | [place] [employer] [facility] | + + + | Organization | [facility] [employer] [facility] [...] Team Providers + +------+ + | Care Dragsaw Operator Name | Role | Phone | [...] CH8N | | | | | | [facility] | | | | | | and Healing, | | | | | | Building [address], | | | | | | Floor [place], [place] | | | | | | [address] | | | | | | [phone] | | | +--------+ + + + [...]
--- OUTSIDE RECORDS SUMMARY | ~2020-04-04 | XMS | Encounter Summary ---
Demographics + + + | Address | [address] | | | [place] [address] | + + + | Home Phone [...] | Organization | [facility] | [...] Team Providers + +------+ + | Care Parcel Post Delivery Name | Role | Phone | + +------+ + PCP | Unavailable | + +------+ + Encounter Details +--------+ + + + + | Date | Type | Department | Care Team | Description | +--------+ + + + + | 03/03/ | Emergency | [facility] | Artis Reyes DO | Pain, abdominal, | | 2012 | | MEDICAL CENTER | [address] | unknown etiology | | | | EMERGENCY CENTER | [place], [place] | | | | | [address] [facility] | [address] | | | | | [place], [place] | [phone] | | | | | [address] | | | | | | [phone] | | | +--------+ + + + [...]
--- OUTSIDE RECORDS SUMMARY | ~2020-04-04 | XMS | Encounter Summary ---
Demographics + + + | Address | [address] | | | [place] [address] | + + + | Home Phone [...] + | Organization | [facility] | | | and [place] [...] Team Providers + +------+ + | Care Sheet Metal Work Furnace Installer Name | Role | Phone | + +------+ + PCP | Unavailable | + +------+ + Encounter Details +--------+ + + + + | Date | Type | Department | Care Team | Description | +--------+ + + + + | 08/21/ | Hospital | [facility] | | | | 1991 | Encounter | MED CTR EMERGENCY | | | | | | CENTER [address] | | | | | | [place] | | | | | | [address] | | | | | | [phone] | | | +--------+ + + + [...]
--- OUTSIDE RECORDS SUMMARY | ~2020-04-04 | XMS | Encounter Summary ---
Demographics + + + | Address | [address] | | | [place] [address] | + + + | Home Phone [...] | Organization | [facility] | | [...] + +------+ + | Care Special Procedures Tech Name | Role | Phone | + +------+ + PCP | Unavailable | + +------+ + Encounter Details +--------+ + + + + | Date | Type | Department | Care Team | Description | +--------+ + + + + | 04/18/ | Hospital | [facility] | | | | 1991 | Encounter | MED CTR EMERGENCY | | | | | | CENTER [address] | | | | | | [place] | | | | | | [address] | | | | | | [phone] | | | +--------+ + + + [...]
--- OUTSIDE RECORDS SUMMARY | ~2020-04-04 | XMS | Encounter Summary ---
Demographics + + + | Address | [address] | | | [place] [address] | + + + | Home Phone [...] + + + | Author | [place] [employer] [facility] | + + + | Organization | [facility] [employer] [facility] | [...] Providers + +------+ + | Care Insurance Examining Clerk Name | Role | Phone | + +------+ + | Brenden Benavides MD | PCP | | + +------+ + Encounter Details +--------+ + + + + | Date | Type | Department | Care Team | Description | +--------+ + + + + | 02/23/ | Telephone | [facility] | Brad Currie MD | | | 2006 | | [place] | | | | | | Neuro-Ophthalmology | | | | | | [address] [facility] | | | | | | Mailcode: PATTI | | | | | | [place] [address] | | | | | | [phone] | | | +--------+ + + + [...]
--- OUTSIDE RECORDS SUMMARY | ~2020-04-04 | XMS | Encounter Summary ---
Demographics + + + | Address | [address] | | | [place] [address] | + + + | Home Phone [...] + + | Author | [place] [employer] [facility] | + + + | Organization | [facility] [employer] [facility] | + + + | Address | Unknown | + + + | Phone | Unavailable | + + + Support + + +---------+ + | Name | Relationship | Address | Phone | + + +---------+ + | Ruby Au | ECON | Unknown | | + + +---------+ + Care Team Providers + +------+ + | Care Attendant Coin Operated Laundry Name | Role | Phone | + [...] Cerebri | | 2006 | Visit | [facility] | Bud Alexander MD [address] | (Primary Dx) | | | | [facility] [address] | [address] | | | | | [address] | [place], [place] | | | | | [facility] | [address] | | | | | [place], [place] | [phone] | | | | | [address] | [...] pattern characteristic of subarachnoid fluid. Report finalized. LETFY MCFARLANE MD documented in this enco unter Plan of Treatment Not on filedocumented as of this encounter Visit Diagnoses + + | Diagnosis | + + | Pseudotumor cerebri - Primary Benign intracranial hypertension | + + documented in this encounter"
--- OUTSIDE RECORDS SUMMARY | ~2020-04-04 | XMS | Encounter Summary ---
Demographics + + + | Address | [address] | | | [place] [address] | + + + | Home Phone [...] + + + | Author | [place] [employer] [facility] | + + + | Organization | [facility] [employer] [facility] | + [...] Team Providers + +------+ + | Care Metalizing Supervisor Name | Role | Phone | [...] | Headache | | 2005 | | [place]/Ophthalmol | MD Jordin | | | | | leon at [facility] [address] | | | | | | [address] Mailcode: | | | | | | CH11P [facility] | | | | | | Health and Healing, | | | | | | Building | | | | | | Floor [place], [place] | | | | | | [address] | | | | | | [phone] | | | +--------+ + + + [...]
--- OUTSIDE RECORDS SUMMARY | ~2020-04-04 | XMS | Encounter Summary ---
Demographics + + + | Address | [address] | | | [place] [address] | + + + | Home Phone [...] + + + | Author | [place] [employer] [facility] | + + + | Organization | [facility] [employer] [facility] [...] MD | | | 2006 | | [place] | | | | | | Neuro-Ophthalmology | | | | | | [address] [facility] | | | | | | Mailcode: PATTI | | | | | | [place] [address] | | | | | | [phone] | | | +--------+ + + + [...]
--- OUTSIDE RECORDS SUMMARY | ~2020-04-04 | XMS | Encounter Summary ---
Demographics + + + | Address | [address] | | | [place] [address] | + + + | Home Phone [...] | [facility] | | [...] Providers + +------+ + | Care Water Ski Assembler Name | Role | Phone | + +------+ + PCP | Unavailable | + +------+ + Encounter Details +--------+ + + + + | Date | Type | Department | Care Team | Description | +--------+ + + + + | 01/27/ | Hospital | [facility] | Marine Oden | | | 2011 - | Encounter | MED CTR EMERGENCY | DO Gaurang Drake | | | | | [address] | [place], [place] | | | 01/28/ | | [place], [place] | [address] | | | 2011 | | [address] | | | | | | [phone] | | | +--------+ + + + [...] Performed At | + + + | [facility] Diagnostic Imaging Department | [facility] | | [address] [facility] | [facility] | | UNENHANCED HEAD CT, 01/28/2012, | [...] COMMUNICATED TO THE ER STAFF BY THE [facility] RADIOLOG IST ON | | | 01/29/2012 AT 0003 HOURS. Dictated Date/Time: 01/29/2012 09:41 | | | Transcribed Date/Time: 01/29/2012 09:47 Supervisor Shuttle Fitting: | | | <Electronically Signed by Ivan Smalls MD> 01/29/12 1606 | | + + + + + | Procedure Note | + + | Neal, Rad Conversion - 01/04/2014 4:51 PM [facility] | | Diagnostic Imaging Department [address] [place] | | UNENHANCED HEAD CT, 01/28/2012, 2342 [...] THE ER STAFF BY | | THE [facility]AMES RADIOLOGIST ON 01/29/2012 AT 0003 HOURS. Dictated [...] 09:41 | |Transcribed Date/Time: 01/29/2012 09:47 | |Supervisor Shuttle Fitting: | |<Electronically Signed by Ivan Smalls MD> 01/29/12 1606 | + + + +---------+ + + | Performing | Address | City/State/Zipcode | Phone Number | | Organization | | | | + +---------+ + + | [place] | | | | | [facility] | | | | + +---------+ + + documented in this encounter Visit Diagnoses Not on filedocumented in this encounter"
--- OUTSIDE RECORDS SUMMARY | ~2020-04-04 | XMS | Encounter Summary ---
Demographics + + + | Address | [address] | | | [place] [address] | + + + | Home Phone [...] | Organization | [facility] | | | [...] Team Providers + +------+ + | Care Forklift Truck Mechanic Name | Role | Phone | + +------+ + PCP | Unavailable | + +------+ + Encounter Details +--------+ + + + + | Date | Type | Department | Care Team | Description | +--------+ + + + + | 10/18/ | Hospital | [facility] | | | | 1991 | Encounter | MED CTR WOMENS | | | | | | HEALTH SV [address] | | | | | | [place], | | | | | | [place] [address] | | | | | | [phone] | | | +--------+ + + + [...]
--- OUTSIDE RECORDS SUMMARY | ~2020-04-04 | XMS | Encounter Summary ---
Demographics + + + | Address | [address] | | | [place] [address] | + + + | Home Phone [...] + + | Author | [place] [employer] [facility] | + + + | Organization | [facility] [employer] [facility] | + + + | Address | Unknown | + + + | Phone | Unavailable | + + + Support + + +---------+ + | Name | Relationship | Address | Phone | + + +---------+ + | Ruby Au | ECON | Unknown | | + + +---------+ + Care Team Providers + +------+ + | Care Freelance Data Entry Name | Role | Phone | + [...] Cerebri | | 2005 | Visit | [place] | | (Primary Dx) | | | | Neuro-Ophthalmology | | | | | | [address] [facility] | | | | | | Mailcode: PATTI | | | | | | [place] [address] | | | | | | [phone] | | | +--------+---------+ + + + [...] Brad Currie MD Neuro-Ophthalmology and Cerebrovascular Disease Circular Knitter Helper of Ophthalmology, Neurology, and Neurosurgery documented in this encounter Plan of Treatment + + +--------+ + + | Name | Type | Priori | Associated Diagnoses | Order Schedule | | | | ty | | | + + +--------+ + + | MA VISUAL FIELD | Procedures | Routin | Pseudotumor | Ordered: 10/13/2006 | | EXAM,EXTENDED | | e | Cerebri | | + + +--------+ + + documented as of this encounter Visit Diagnoses + + | Diagnosis | + + | Pseudotumor cerebri - Primary Benign intracranial hypertension | + + documented in this encounter"
--- OUTSIDE RECORDS SUMMARY | ~2020-04-04 | XMS | Encounter Summary ---
Demographics + + + | Address | [address] | | | [place] [address] | + + + | Home Phone [...] + + + | Author | [place] [employer] [facility] | + + + | Organization | [facility] [employer] [facility] | + + [...] Providers + +------+ + | Care Educational Assistant Name | Role | Phone | [...] [address] | | | | | CH8N [facility] | [place], [place] | | | | | Health and Healing, | [address] | | | | | Building | | | | | | Floor [place], [place] | | | | | | [address] | | | | | | [phone] | | | +--------+--------+ + + + [...]
--- OUTSIDE RECORDS SUMMARY | ~2020-04-04 | XMS | Encounter Summary ---
Demographics + + + | Address | [address] | | | [place] [address] | + + + | Home Phone [...] + + | Author | [place] [employer] [facility] | + + + | Organization | [facility] [employer] [facility] | + + + | [...] | | | Ave Mailcode: CH8N | [place], [place] | | | | | [facility] | [address] | | | | | and Healing, | [phone] | | | | | [facility] | | | | | | Floor [place], [place] | | | | | | [address] | | | | | | [phone] | | | +--------+ + + + [...]
--- OUTSIDE RECORDS SUMMARY | ~2020-04-04 | XMS | Encounter Summary ---
Demographics + + + | Address | [address] | | | [place] [address] | + + + | Home Phone [...] | Organization | [facility] [...] Providers + +------+ + | Care Fish Checker Name | Role | Phone | + +------+ + PCP | Unavailable | + +------+ + Encounter Details +--------+ + + + + | Date | Type | Department | Care Team | Description | +--------+ + + + + | 08/01/ | Hospital | [facility] | | | | 1991 | Encounter | MED CTR WOMENS | | | | | | HEALTH SV [address] | | | | | | [place], | | | | | | [place] [address] | | | | | | [phone] | | | +--------+ + + + [...]
--- OUTSIDE RECORDS SUMMARY | ~2020-04-04 | XMS | Encounter Summary ---
Demographics + + + | Address | [address] | | | [place] [address] | + + + | Home Phone [...] + + + | Author | [place] [employer] [facility] | + + + | Organization | [facility] [employer] [facility] | + [...] + +------+ + | Care Sheet Metal Production Worker Name | Role | Phone [...] Rd | | | | | | [place], [place] | | | | | | [address] | | | +--------+ + + + [...]
--- OUTSIDE RECORDS SUMMARY | ~2020-04-04 | XMS | Encounter Summary ---
Demographics + + + | Address | [address] | | | [place] [address] | + + + | Home Phone [...] + + | Author | [place] [employer] [facility] | + + + | Organization | [facility] | + + + | Address | Unknown | + + + | Phone | Unavailable | + + + Support + + +---------+ + | Name | Relationship | Address | Phone | + + +---------+ + | Ruby Au | ECON | Unknown | | + + +---------+ + Care Team Providers + +------+ + | Care Electrotype Finisher Name | Role | Phone | + +------+ + | Dennis Maddox | PCP | | + +------+ + Encounter Details +--------+ + + + + | Date | Type | Department | Care Team | Description | +--------+ + + + + | 03/15/ | Telephone | [facility] | Ronaldo Martin MD | | | 2012 | | [place]/Ophthalmol | [facility] [place] | | | | | leon at [facility] [address] | [address] [place] [address] | | | | | Gianluca Kirk Mailcode: | [place] [address] | | | | | CH11P [facility] | [phone] | | | | | Health and Healing, | | | | | | | | | | | | [place], [place] | | | | | | [address] | | | | | | [phone] | | | +--------+ + + + [...]
--- OUTSIDE RECORDS SUMMARY | ~2020-04-04 | XMS | Encounter Summary ---
Demographics + + + | Address | [address] | | | [place] [address] | + + + | Home Phone [...] + + + | Author | [place] Flattr [facility] | + + + | Organization | [facility] Yodo1 [facility] | + [...] Team Providers + +------+ + | Care Receiver Stocker Name | Role | Phone | + [...] | Headache | | 2015 | | [place] | [address] | | | | | Neuro-Ophthalmology | [facility] [place] | | | | | at [facility] [address] | [address] | | | | | Ave Mailcode: [facility] | [phone] | | | | | [facility] | | | | | | and Healing, | | | | | | Building | | | | | | Floor [place], [place] | | | | | | [address] | | | | | | [phone] | | | +--------+ + + + [...]
--- OUTSIDE RECORDS SUMMARY | ~2020-04-04 | XMS | Encounter Summary ---
Demographics + + + | Address | [address] | | | [place] [address] | + + + | Home Phone [...] + + + | Author | [place] [employer] [facility] | + + + | Organization | [facility] Science [facility] | + + + | Address | Unknown | + + + | Phone | Unavailable | + + + Support + + +---------+ + | Name | Relationship | Address | Phone | + + +---------+ + | Ruby Au | ECON | Unknown | | + + +---------+ + Care Team Providers + +------+ + | Care Pharmacology Associate Name | Role | Phone | [...] | | | | | Physician's | [place], [place] | | | | | Fidelia, [facility] floor | [address] | | | | | [place], [place] | [phone] | | | | | [address] | | | | | | [phone] | | | +--------+ + + + [...]
--- OUTSIDE RECORDS SUMMARY | ~2020-04-04 | XMS | Encounter Summary ---
Demographics + + + | Address | [address] | | | [place] [address] | + + + | Home Phone [...] + + + | Author | [place] [employer] [facility] | + + + | Organization | [facility] m2M [employer] | + + + | Address | Unknown | + + + | Phone | Unavailable | + + + Support + + +---------+ + | Name | Relationship | Address | Phone | + + +---------+ + | Ruby Au | ECON | Unknown | | + + +---------+ + Care Team Providers + +------+ + | Care Gear Finisher Name | Role | Phone | [...] Cerebri | | 2006 | Visit | [place] | | (Primary Dx) | | | | Neuro-Ophthalmology | | | | | | [address] [facility] | | | | | | Mailcode: PATTI | | | | | | [place] [address] | | | | | | [phone] | | | +--------+---------+ + + + [...] Referred by: CASIMIRO PAYTON MD [address] [place] [address] Symptoms: Patient feels things are better. Vision [...] Brad Currie MD Neuro-Ophthalmology and Cerebrovascular Disease Wood Scrap Handler of Ophthalmology, Neurology, and Neurosurgery documented in this encounter Plan of Treatment + + +--------+ + + | Name | Type | Priori | Associated Diagnoses | Order Schedule | | | | ty | | | + + +--------+ + + | NH VISUAL FIELD | Procedures | Routin | Pseudotumor | Ordered: 01/30/2007 | | EXAM,EXTENDED | | e | Cerebri | | + + +--------+ + + documented as of this encounter Visit Diagnoses + + | Diagnosis | + + | Pseudotumor cerebri - Primary Benign intracranial hypertension | + + documented in this encounter"
--- OUTSIDE RECORDS SUMMARY | ~2020-04-04 | XMS | Encounter Summary ---
Demographics + + + | Address | [address] | | | [place] [address] | + + + | Home Phone [...] Organization | [facility] [...] Providers + +------+ + | Care Developer Architect Name | Role | Phone | + +------+ + PCP | Unavailable | + +------+ + Encounter Details +--------+ + + + + | Date | Type | Department | Care Team | Description | +--------+ + + + + | 09/27/ | Hospital | [facility] | | | | 1991 | Encounter | MED CTR [facility] | | | | | | HEALTH [address] | | | | | | [place], | | | | | | [place] [address] | | | | | | [phone] | | | +--------+ + + + [...]
--- OUTSIDE RECORDS SUMMARY | ~2020-04-04 | XMS | Encounter Summary ---
Demographics + + + | Address | [address] | | | [place] [address] | + + + | Home Phone [...] + + + | Author | [place] [employer] [facility] | + + + | Organization | [facility] | + + [...] | | [address] Mailcode:OP14B | [place], | | | | | [facility] | [place] [address] | | | | | [place], [place] | | | | | | [address] | | | | | | [phone] | | | +--------+ + + + [...]
--- OUTSIDE RECORDS SUMMARY | ~2020-04-04 | XMS | Encounter Summary ---
Demographics + + + | Address | [address] | | | [place] [address] | + + + | Home Phone [...] + + + | Author | [place] Chipolo Science [facility] | + + + | Organization | [facility] [employer] [facility] | + [...] Team Providers + +------+ + | Care Sofa Cover Inspector Name | Role | Phone | [...] | | | Ave Mailcode: CH8N | [place], [place] | | | | | [facility] | [address] | | | | | and Healing, | [phone] | | | | | [facility] | | | | | | Floor [place], [place] | | | | | | [address] | | | | | | [phone] | | | +--------+ + + + [...]
--- OUTSIDE RECORDS SUMMARY | ~2020-04-04 | XMS | Encounter Summary ---
Demographics + + + | Address | [address] | | | [place] [address] | + + + | Home Phone [...] + + + | Author | [place] [employer] [facility] | + + + | Organization | [facility] [employer] [facility] | + [...] Providers + +------+ + | Care Business Liaison Officer Name | Role | Phone | [...] [address] | | | | | [place], Located [facility] | [place], [place] | | | | | [place], [place] | [address] | | | | | [address] | [phone] | | | | | [phone] | | | +--------+ + + + [...]
--- OUTSIDE RECORDS SUMMARY | ~2020-04-04 | XMS | Encounter Summary ---
Demographics + + + | Address | [address] | | | [place] [address] | + + + | Home Phone [...] | Organization | [facility] [...] Team Providers + +------+ + | Care Photonics Engineering Technician Name | Role | Phone | + +------+ + PCP | Unavailable | + +------+ + Encounter Details +--------+ + + + + | Date | Type | Department | Care Team | Description | +--------+ + + + + | 07/06/ | Hospital | [facility] | Mirna Lambert | | | 2007 | Encounter | MED CTR EMERGENCY | MD Kwaku Gregory | | | | | CARL [address] | [facility] | | | | | [place] | [place] [address] | | | | | [address] | [phone] | | | | | [phone] | | | +--------+ + + + [...]
--- OUTSIDE RECORDS SUMMARY | ~2020-04-04 | XMS | Encounter Summary ---
Demographics + + + | Address | [address] | | | [place] [address] | + + + | Home Phone [...] + + + | Author | [place] [employer] [facility] | + + + | Organization | [facility] Interactive Super[employer] [facility] | + [...] Team Providers + +------+ + | Care Yarn Mercerizer Operator Helper Name | Role | Phone [...] | | | | | | | [place] | | | | | | | [id number] | | | | | | | [facility] | | | | | | | [place], | | | | | | | [place] [address] | | | | | | | Phone: | | | | | | | [phone] | +--------+--------+ + + + + Encounter Details +--------+ + + + + | Date | Type | Department | Care Team | Description | +--------+ + + + + | 08/01/ | Hospital | [facility] [address] | Sam Pedroza MD | | | 2007 - | Encounter | [place] | [address] | | | | | [id number] [facility] | [place], [place] | | | 08/02/ | | HOSPITAL [place], | [address] | | | 2007 | | [place] [address] | [phone] | | | | | [phone] | | | +--------+ + + + [...] in 2 weeks, please call for appointment: [phone] Condition On Discharge: Vital Signs at discharge [...] in 2 weeks, please call for appointment: [phone] Condition On Discharge: Vital Signs at discharge [...] independently, has no ADL needs and [facility] Dr. Pedroza agreed that she would not need therapies. Spoke with RN who endorses that pt has been up independently last pm and this am. OT to sign off at this time. Yessenia Nowak, OTR/ L [address] Tomasz Caldera Md - 02/2008 11:08 AM [...] | | + +---------+ + + | [facility] DEPARTMENT OF | | | | | RADIOLOGY | | | | + +---------+ + + OPERATION RECORD (08/01/2008 12:00 AM PDT) + + + | Narrative | Performed At | + + + | [id number] | | | [id number] | | | [place] [id number] Date: | | | 08/01/2008 Attending Surgeon: | | | Sam Pedroza M.D. Government Services Professional(s): | | | Tomasz Rice M.D. | [...] | tonsils and then gently incised. A [place] 4 was then easily fed | | [...] | | | Pooja Pedroza M.D. / [id number] / | | | [id number] / [id number] / | | + + + + + | Procedure Note | + + | Krystal Rushing, Tomasz - 08/01/2008 12:00 AM PDT [id number] | | [id number] [place] | | [id number] Date: 08/01/2008 Attending Surgeon: Sam | | Pooja Pedroza Government Services Professional(s): Tomasz Rice M.D. | | Palomo Jansen [...] tonsils and | | thengently incised. A [place] 4 was then easily fed through it, [...] Sam Pedroza M.D. KG / | | [id number] / [id number] / [id number] / T: 08/02/2008 | |dripping from the [...] tonsils and then | |gently incised. A [place] 4 was then easily fed through it, [...] | | | |KG / HS | |[id number] / [id number] / 72471 / | | | | | | | | | | | | | | | | | | | | | + + TEACHING PHYSICIAN (08/01/2008 12:00 AM PDT) + + + | Narrative | Performed At | + + + | [id number] | | | [id number] | | | [place] [id number] | | | Date: 08/01/2008 Attending Surgeon: | | | Sam Pedroza M.D. Government Services Professional(s): | | | Tomasz Rice M.D. | [...] | | | Pooja Pedroza / LANETTE [id number] / [id number] / [id number] / [id number] D: | | | 08/01/2008 | | + + + + + | Procedure Note | + + | Sam Pedroza MD - 08/01/2008 12:00 AM PDT [id number] | | [id number] [place] | | [id number] Date: 08/01/2008ttending Surgeon: Sam | | Pooja Pedroza Government Services Professional(s): Tomasz Rice M.D. | | Palomo Jansen [...] | Bisi. Sam Pedroza M.D. AD / [id number] / [id number] / [id number] / [id number]: | | 08/01/2008T: 08/01/2008 | | | [...] | | | |AD / HS | |[id number] / [id number] / 83354 / 16028 | | | | | | | [...]
--- OUTSIDE RECORDS SUMMARY | ~2020-04-04 | XMS | Encounter Summary ---
Demographics + + + | Address | [address] | | | [place] [address] | + + + | Home Phone [...] + + + | Author | [place] [employer] [facility] | + + + | Organization | [facility] [employer] [facility] | + [...] Team Providers + +------+ + | Care Debubblizer Name | Role | Phone | + +------+ + | Yeison Simms MD | PCP | Unavailable | + +------+ + Reason for Visit + + + | Reason | Comments | + + + | Refill Request | refill on [place] | + + + Encounter Details +--------+--------+ + + + | Date | Type | Department | Care Team | Description | +--------+--------+ + + + | 08/27/ | Refill | Neurosurgery at | Sam Pedroza MD | Refill Request | | 2007 | | [facility] [address] | [address] | (refill on [address]) | | | | Ave Mailcode: CH8N | [place], [place] | | | | | [facility] | [address] | | | | | and Healing, | [phone] | | | | | [facility] | | | | | | Floor [place], [place] | | | | | | [address] | | | | | | [phone] | | | +--------+--------+ + + + [...]
--- OUTSIDE RECORDS SUMMARY | ~2020-04-04 | XMS | Encounter Summary ---
Demographics + + + | Address | [address] | | | [place] [address] | + + + | Home Phone [...] + + + | Author | [place] [employer] [facility] | + + + | Organization | [facility] [employer] [facility] | + + + | Address | Unknown | + + + | Phone | Unavailable | + + + Support + + +---------+ + | Name | Relationship | Address | Phone | + + +---------+ + | Ruby Au | ECON | Unknown | | + + +---------+ + Care Team Providers + +------+ + | Care Accounts Administrator Name | Role | Phone | [...] | | | [address] Mailcode: [id number] | [place], [place] | | | | | [place], [place] | [address] | | | | | [address] | [phone] | | | | | [phone] | | | +--------+ + + + [...]
--- OUTSIDE RECORDS SUMMARY | ~2020-04-04 | XMS | Encounter Summary ---
Demographics + + + | Address | [address] | | | [place] [address] | + + + | Home Phone [...] + + + | Author | [place] FutureAdvisor Science [facility] | + + + | Organization | [facility] SNAPCARD [facility] | + [...] Team Providers + +------+ + | Care Waste Oil Pumper Name | Role | Phone | + +------+ + | Brenden Benavides MD | PCP | | + +------+ + Encounter Details +--------+ + + + + | Date | Type | Department | Care Team | Description | +--------+ + + + + | 02/22/ | Telephone | [facility] | Brad Currie MD | | | 2006 | | [place] | | | | | | Neuro-Ophthalmology | | | | | | [address] [facility] | | | | | | Mailcode: PATTI | | | | | | [place] [address] | | | | | | [phone] | | | +--------+ + + + [...]
--- OUTSIDE RECORDS SUMMARY | ~2020-04-04 | XMS | Encounter Summary ---
Demographics + + + | Address | [address] | | | [place] [address] | + + + | Home Phone [...] + + + | Author | [place] Zauber [facility] | + + + | Organization | [facility] [employer] [facility] | + [...] Providers + +------+ + | Care National Investigative Producer Name | Role | Phone | + [...] [address] | | | | | | [facility] | | | | | | [place], [place] | | | | | | [address] | | | | | | [phone] | | | +--------+ + + + [...]
--- OUTSIDE RECORDS SUMMARY | ~2020-04-04 | XMS | Encounter Summary ---
Demographics + + + | Address | [address] | | | [place] [address] | + + + | Home Phone [...] Organization | [facility] | | | and [...] Providers + +------+ + | Care Dot Compliance Manager Name | Role | Phone | + +------+ + PCP | Unavailable | + +------+ + Encounter Details +--------+ + + + + | Date | Type | Department | Care Team | Description | +--------+ + + + + | 05/28/ | Hospital | [facility] | | | | 1991 | Encounter | MED CTR EMERGENCY | | | | | | CENTER [address] | | | | | | [place] | | | | | | [address] | | | | | | [phone] | | | +--------+ + + + [...]
--- OUTSIDE RECORDS SUMMARY | ~2020-04-04 | XMS | Encounter Summary ---
Demographics + + + | Address | [address] | | | [place] [address] | + + + | Home Phone [...] + + + | Author | [place] [employer] [facility] | + + + | Organization | [facility] [employer]Store [facility] [...] Team Providers + +------+ + | Care Team Otr Truck Driver Name | Role | Phone [...] Erroneous Encounter | | 2007 | | [facility] | [facility] | - Disregard | | | | and Healing [address] | Neurosurgery [address] | | | | | [address] Mailcode: | [address] | | | | | CH8N Center for | [place], [place] | | | | | Health and Healing, | [address] | | | | | Building 1, | | | | | | Floor [place], [place] | | | | | | [address] | | | | | | [phone] | | | +--------+--------+ + + + [...]
--- OUTSIDE RECORDS SUMMARY | ~2020-04-04 | XMS | Encounter Summary ---
Demographics + + + | Address | [address] | | | [place] [address] | + + + | Home Phone [...] + + | Author | [place] [employer] [facility] | + + + | Organization | [facility] [employer] [employer] [facility] | [...] Providers + +------+ + | Care Floor Refinisher Name | Role | Phone | + [...] | Prescription | | 2012 | | [place]/Ophthalmol | MD Perry | | | | | leon at [facility] [address] | | | | | | [address] Mailcode: | | | | | | CH11P [facility] | | | | | | Health and [facility], | | | | | | Building | | | | | | [place], [place] | | | | | | [address] | | | | | | [phone] | | | +--------+ + + + [...]
--- OUTSIDE RECORDS SUMMARY | ~2020-04-04 | XMS | Encounter Summary ---
Demographics + + + | Address | [address] | | | [place] [address] | + + + | Home Phone [...] + + + | Author | [place] InLive Interactive Science [facility] | + + + | Organization | [facility] [employer] Science [facility] | + [...] Team Providers + +------+ + | Care Socially Responsible Investment Adviser Name | Role | Phone | [...] | Headache | | 2005 | | [place]/Ophthalmol | MD Jordin | | | | | leon at [facility] [address] | | | | | | [address] [place] Mailcode: | | | | | | CH11P [facility] | | | | | | Health and Healing, | | | | | | Building | | | | | | Floor [place], [place] | | | | | | [address] | | | | | | [phone] | | | +--------+ + + + [...]
--- OUTSIDE RECORDS SUMMARY | ~2020-04-04 | XMS | Encounter Summary ---
Demographics + + + | Address | [address] | | | [place] [address] | + + + | Home Phone [...] Providers + +------+ + | Care Maintenance Trainer Name | Role | Phone | + +------+ + PCP | Unavailable | + +------+ + Encounter Details +--------+ + + + + | Date | Type | Department | Care Team | Description | +--------+ + + + + | 10/27/ | Hospital | [facility] | | | | 1990 | Encounter | MED CTR EMERGENCY | | | | | | CENTER [address] | | | | | | [place] | | | | | | [address] | | | | | | [phone] | | | +--------+ + + + [...]
--- OUTSIDE RECORDS SUMMARY | ~2020-04-04 | XMS | Encounter Summary ---
Demographics + + + | Address | [address] | | | [place] [address] | + + + | Home Phone [...] + + + | Author | [place] Patience [facility] | + + + | Organization | [facility] [employer] [facility] | + [...] Providers + +------+ + | Care Visual Manager Name | Role | Phone | [...] | | | Ave Mailcode: CH8N | [place], [place] | | | | | [facility] | [address] | | | | | and Healing, | [phone] | | | | | [facility] | | | | | | Floor [place], [place] | | | | | | [address] | | | | | | [phone] | | | +--------+---------+ + + + [...] wanted to have LP shunt instead of DISK AND TAPE MACHINE TENDER shunt because she d oes not weant [...]
--- OUTSIDE RECORDS SUMMARY | ~2020-04-04 | XMS | Encounter Summary ---
Demographics + + + | Address | [address] | | | [place] [address] | + + + | Home Phone [...] + + + | Author | [place] [employer] [facility] | + + + | Organization | [facility] [employer] [facility] | + + [...] Providers + +------+ + | Care Associate Store Manager Name | Role | Phone | [...] | | | Ave Mailcode: CH8N | [place], [place] | Encounters | | | | [facility] | [address] | | | | | and [place], | [phone] | | | | | [facility] | | | | | | Floor [place], [place] | | | | | | [address] | | | | | | [phone] | | | +--------+ + + + [...]
--- OUTSIDE RECORDS SUMMARY | ~2020-04-04 | XMS | Encounter Summary ---
Demographics + + + | Address | [address] | | | [place] [address] | + + + | Home Phone [...] | [facility] | | | and [place] | [...] Team Providers + +------+ + | Care Csr Retail Name | Role | Phone | + +------+ + PCP | Unavailable | + +------+ + Encounter Details +--------+ + + + + | Date | Type | Department | Care Team | Description | +--------+ + + + + | 04/21/ | Hospital | [facility] | | | | 1995 | Encounter | MED CTR EMERGENCY | | | | | | CENTER [address] | | | | | | [place] | | | | | | [address] | | | | | | [phone] | | | +--------+ + + + [...]
--- OUTSIDE RECORDS SUMMARY | ~2020-04-04 | XMS | Encounter Summary ---
Demographics + + + | Address | [address] | | | [place] [address] | + + + | Home Phone [...] | Organization | [facility] | [...] Team Providers + +------+ + | Care Cello Teacher Name | Role | Phone | + +------+ + PCP | Unavailable | + +------+ + Encounter Details +--------+ + + + + | Date | Type | Department | Care Team | Description | +--------+ + + + + | 07/10/ | Emergency | [facility] | [place] | Headache; Benign | | 2012 | | MEDICAL CENTER | [place] [address] | intracranial | | | | EMERGENCY CENTER | [address] | hypertension; Back | | | | [address] | [place] [address] | pain | | | | [place], [place] | [phone] | | | | | [address] | | | | | | [phone] | | | +--------+ + + + [...] | + + + | ANNABELLA Waters [facility] CT HEAD WO CONTRAST HISTORY: 37 [...]
--- OUTSIDE RECORDS SUMMARY | ~2020-04-04 | XMS | Encounter Summary ---
Demographics + + + | Address | [address] | | | [place] [address] | + + + | Home Phone [...] + + + | Author | [place] [employer] [facility] | + + + | Organization | [facility] [employer] [facility] | + [...] Team Providers + +------+ + | Care Patent Agent Name | Role | Phone | [...] + + | 08/24/ | Emergency | [facility] Emergency | Tylor Mcclellan, | | | 2010 | | Department [address] | Mickie Cruz | | | | | [address] | MD Joey [address] | | | | | [facility] | [facility] | | | | | [place], [place] | [place], [place] | | | | | [address] | [address] | | | | | [phone] | [phone] | | | | | | | [...] us take care of you at [facility] today. Follow up with primary care physician [...] | | + +---------+ + + | [facility] DEPARTMENT OF | | | | [...]
--- OUTSIDE RECORDS SUMMARY | ~2020-04-04 | XMS | Encounter Summary ---
Demographics + + + | Address | [address] | | | [place] [address] | + + + | Home Phone [...] Organization | [facility] | [...] Providers + +------+ + | Care Shipping Lead Name | Role | Phone | + +------+ + PCP | Unavailable | + +------+ + Encounter Details +--------+ + + + + | Date | Type | Department | Care Team | Description | +--------+ + + + + | 10/14/ | Hospital | [facility] | | | | 1991 | Encounter | [facility] | | | | | | HEALTH [address] | | | | | | [place], | | | | | | [place] [address] | | | | | | [phone] | | | +--------+ + + + [...]
--- OUTSIDE RECORDS SUMMARY | ~2020-04-04 | XMS | Encounter Summary ---
Demographics + + + | Address | [address] | | | [place] [address] | + + + | Home Phone [...] + + | Author | [place] [employer] [facility] | + + + | Organization | [facility] [employer] [facility] | + + + | Address | Unknown | + + + | Phone | Unavailable | + + + Support + + +---------+ + | Name | Relationship | Address | Phone | + + +---------+ + | Ruby Au | ECON | Unknown | | + + +---------+ + Care Team Providers + +------+ + | Care Sugar Reprocess Operator Head Name | Role | Phone [...] | | | | | [facility] | [place], [place] | | | | | Health and Healing, | [address] | | | | | Building 1, 8th | | | | | | Floor [place], [place] | | | | | | [address] | | | | | | [phone] | | | +--------+ + + + [...]
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
--- OUTSIDE RECORDS SUMMARY | ~2020-04-04 | XMS | Encounter Summary ---
Demographics + + + | Address | [address] | | | [place] [address] | + + + | Home Phone | | + + + | Preferred Language | Unknown | + + + | Marital Status | | + + + | Zoroastrianism Affiliation | Unknown | + + + | Race | Unknown | + + + | Ethnic Group | Unknown | + + + Author + + + | Author | [facility] | | | and [place] | + + + | Organization | [facility] [...] Providers + +------+ + | Care Commissioner Public Works Name | Role | Phone | + +------+ + PCP | Unavailable | + +------+ + Encounter Details +--------+ + + + + | Date | Type | Department | Care Team | Description | +--------+ + + + + | 08/12/ | Hospital | [facility] | Jenn Oreilly, | | | 2012 | Encounter | HOSPITAL EMERGENCY | [facility] [address] | | | | | CENTER [address] | [place] | | | | | [place] | [address] | | | | | [address] | | | | | | [phone] | | | +--------+ + + + [...]
--- OUTSIDE RECORDS SUMMARY | ~2020-04-04 | XMS | Encounter Summary ---
Demographics + + + | Address | [address] | | | [place] [address] | + + + | Home Phone [...] + + + | Author | [place] [employer] [facility] | + + + | Organization | [facility] [employer] [facility] | + + [...] Providers + +------+ + | Care Sole Layer Name | Role | Phone | [...] [address] | | | | | [facility] | [place], [place] | | | | | [place], [place] | [address] | | | | | [address] | [phone] | | | | | [phone] | | | +--------+ + + + [...]
--- OUTSIDE RECORDS SUMMARY | ~2020-04-04 | XMS | Encounter Summary ---
Demographics + + + | Address | [address] | | | [place] [address] | + + + | Home Phone [...] + + + | Author | [place] [employer] [facility] | + + + | Organization | [facility] [employer] [facility] | + + + | Address | Unknown | + + + | Phone | Unavailable | + + + Support + + +---------+ + | Name | Relationship | Address | Phone | + + +---------+ + | Ruby Au | ECON | Unknown | | + + +---------+ + Care Team Providers + +------+ + | Care Learning Support Aide Name | Role | Phone | [...] | | Ave Mailcode: CH[address]N | [place], [place] | | | | | [facility] | [address] | | | | | and Healing, | [phone] | | | | | [facility] | | | | | | Floor [facility] [place] | | | | | | [address] | | | | | | [phone] | | | +--------+---------+ + + + [...] does have a CAPONE that is fron yuirdia and rated at 3/10. Neurologically the patient [...]
--- OUTSIDE RECORDS SUMMARY | ~2020-04-04 | XMS | Encounter Summary ---
Demographics + + + | Address | [address] | | | [place] [address] | + + + | Home Phone [...] + + + | Author | [place] [employer] [facility] | + + + | Organization | [facility] [employer] [facility] | [...] Providers + +------+ + | Care Metal Sprayer Production Name | Role | Phone | [...] Erroneous Encounter | | 2007 | | [facility] | [facility] | - Disregard | | | | and Healing [address] | Neurosurgery [address] | | | | | [address] Mailcode: | [address] | | | | | [facility] Center for | [place], [place] | | | | | Health and Healing, | [address] | | | | | Building 1, | | | | | | Floor [place], [place] | | | | | | [address] | | | | | | [phone] | | | +--------+--------+ + + + [...]
--- OUTSIDE RECORDS SUMMARY | ~2020-04-04 | XMS | Encounter Summary ---
Demographics + + + | Address | [address] | | | [place] [address] | + + + | Home Phone [...] + + + | Author | [place] [employer] [facility] | + + + | Organization | [facility] [employer] [facility] | + [...] Team Providers + +------+ + | Care Sound Printer Name | Role | Phone | [...] ) | | | | Physician's | [place], [place] | | | | | Pavilion, 2nd floor | [address] | | | | | [place], [place] | [phone] | | | | | [address] | | | | | | [phone] | | | +--------+ + + + [...]
--- OUTSIDE RECORDS SUMMARY | ~2020-04-04 | XMS | Encounter Summary ---
Demographics + + + | Address | [address] | | | [place] [address] | + + + | Home Phone [...] + + + | Author | [place] [employer] [facility] | + + + | Organization | [facility] [employer] [facility] [...] Team Providers + +------+ + | Care Coupler Name | Role | Phone | + [...] Cerebri; | | 2006 | Visit | [place] | Cassi Clark | Pain in or Around | | | | Oculoplastics at | [place], [place] | Eye | | | | [address] | [address] | | | | | [address] | [phone] | | | | | Eye [place] | | | | | | [facility] floor | | | | | | [place] [address] | | | | | | [phone] | | | +--------+---------+ + + + [...] to be seen here or by an as400 operator in [facility], but she says she does not have transportation. I will call in Vicodin #20, pt to call i mmediately if there is any worsening. Pt states lucho lump in left restorationism is gone. No pain. Pt. Had cough [...]
--- OUTSIDE RECORDS SUMMARY | ~2020-04-04 | XMS | Encounter Summary ---
Demographics + + + | Address | [address] | | | [place] [address] | + + + | Home Phone [...] + + + | Author | [place] [employer] [facility] | + + + | Organization | [facility] [employer] [facility] | + [...] Providers + +------+ + | Care Manager Molecular Name | Role | Phone | + [...] + + | 06/24/ | Emergency | [facility] Emergency | | | | 2010 | | Department [address] | | | | | | [address] | | | | | | [facility] | | | | | | [place], [place] | | | | | | [address] | | | | | | [phone] | | | +--------+ + + + [...]
--- OUTSIDE RECORDS SUMMARY | ~2020-04-04 | XMS | Encounter Summary ---
Demographics + + + | Address | [address] | | | [place] [address] | + + + | Home Phone [...] | Organization | [facility] | [...] Team Providers + +------+ + | Care Vp Strategic Partnerships Name | Role | Phone | + +------+ + PCP | Unavailable | + +------+ + Encounter Details +--------+ + + + + | Date | Type | Department | Care Team | Description | +--------+ + + + + | 09/30/ | Hospital | [facility] | | | | 1991 | Encounter | [facility] | | | | | | HEALTH [address] | | | | | | [place], | | | | | | [place] [address] | | | | | | [phone] | | | +--------+ + + + [...]
--- OUTSIDE RECORDS SUMMARY | ~2020-04-04 | XMS | Encounter Summary ---
Demographics + + + | Address | [address] | | | [place] [address] | + + + | Home Phone [...] + + + | Author | [place] [employer] [facility] | + + + | Organization | [facility] [...] Team Providers + +------+ + | Care Fueler Name | Role | Phone | + [...] | | | | | | [address] [place], [place] | | | | | | [address] | | | | | | [phone] | | | +--------+ + + + [...]
--- OUTSIDE RECORDS SUMMARY | ~2020-04-04 | XMS | Encounter Summary ---
Demographics + + + | Address | [address] | | | [place] [address] | + + + | Home Phone [...] + + + | Author | [place] [employer] [facility] | + + + | Organization | [facility] Private[employer] [facility] | [...] Team Providers + +------+ + | Care Worsted Winder Name | Role | Phone | [...] [place], [place] | | | | | [facility] | [address] | | | | | and Healing, | [phone] | | | | | [facility] | | | | | | Floor [place], [place] | | | | | | [address] | | | | | | [phone] | | | +--------+ + + + [...]
--- OUTSIDE RECORDS SUMMARY | ~2020-04-04 | XMS | Encounter Summary ---
Demographics + + + | Address | [address] | | | [place] [address] | + + + | Home Phone [...] | Organization | [facility] [...] Team Providers + +------+ + | Care Coremaker Pipe Name | Role | Phone | + +------+ + PCP | Unavailable | + +------+ + Encounter Details +--------+ + + + + | Date | Type | Department | Care Team | Description | +--------+ + + + + | 09/30/ | Hospital | [facility] | | | | 1990 | Encounter | MED CTR EMERGENCY | | | | | | CENTER [address] | | | | | | [place] | | | | | | [address] | | | | | | [phone] | | | +--------+ + + + [...]
--- OUTSIDE RECORDS SUMMARY | ~2020-04-04 | XMS | Encounter Summary ---
Demographics + + + | Address | [address] | | | [place] [address] | + + + | Home Phone [...] + + + | Author | [place] [employer] [facility] | + + + | Organization | [facility] [place] [employer] [facility] | [...] Providers + +------+ + | Care Logging Crew Supervisor Name | Role | Phone | + +------+ + | Brenden Benavides MD | PCP | | + +------+ + Encounter Details +--------+ + + + + | Date | Type | Department | Care Team | Description | +--------+ + + + + | 02/22/ | Telephone | [facility] | Hay Hughes MD [address] | | | 2006 | | [place] | [address] | | | | | Oculoplastics at | [place], [place] | | | | | [address] | [address] | | | | | [address] | [phone] | | | | | Eye [place] | | | | | | [address] | | | | | | [place] [address] | | | | | | [phone] | | | +--------+ + + + [...]
--- OUTSIDE RECORDS SUMMARY | ~2020-04-04 | XMS | Encounter Summary ---
Demographics + + + | Address | [address] | | | [place] [address] | + + + | Home Phone [...] + + + | Author | [place] [employer] [facility] | + + + | Organization | [facility] Induction Manager [facility] | + [...] + +------+ + | Care Director Of Physical Security Name | Role | Phone | [...] Erroneous Encounter | | 2007 | | [place] [facility] | [facility] | - Disregard | | | | and Healing [address] | Neurosurgery [address] | | | | | [address] Mailcode: | [address] | | | | | [facility] Center for | [place], [place] | | | | | Health and Healing, | [address] | | | | | Building 1, 8th | | | | | | Floor [place], [place] | | | | | | [address] | | | | | | [phone] | | | +--------+ + + + [...]
--- OUTSIDE RECORDS SUMMARY | ~2020-04-04 | XMS | Encounter Summary ---
Demographics + + + | Address | [address] | | | [place] [address] | + + + | Home Phone [...] Organization | [facility] [...] Team Providers + +------+ + | Care Relish Maker Name | Role | Phone | + +------+ + PCP | Unavailable | + +------+ + Encounter Details +--------+ + + + + | Date | Type | Department | Care Team | Description | +--------+ + + + + | 08/16/ | Hospital | [facility] | | | | 1990 | Encounter | MED CTR EMERGENCY | | | | | | CENTER [address] | | | | | | [place] | | | | | | [address] | | | | | | [phone] | | | +--------+ + + + [...]
--- OUTSIDE RECORDS SUMMARY | ~2020-04-04 | XMS | Encounter Summary ---
Demographics + + + | Address | [address] | | | [place] [address] | + + + | Home Phone [...] + + + | Author | [place] [employer] [facility] | + + + | Organization | [facility] [employer] [facility] | + [...] Team Providers + +------+ + | Care Failure Analysis Engineer Name | Role | Phone | [...] Cerebri; | | 2006 | Visit | [place]/Ophthalmol | | Papilledema | | | | ogy at [facility] [address] | | Associated with | | | | [address] Mailcode: | | Increased | | | | [facility] Center for | | Intracranial | | | | Health and Healing, | | Pressure; Transient | | | | Building | | Visual Loss | | | | Floor [place], [place] | | | | | | [address] | | | | | | [phone] | | | +--------+---------+ + + + [...] HPI: 31 y.o. year old female from [place] : Patient presents with: Transient visual loss [...] seconds; these occur 2-3 x per w [place]. Hobbies: Tobacco use: reports that she has [...] patient to continue follow-up for psuedotumor [facility] neuro-ophth. Follow up at [facility] prn new symptoms or complaints. WADE [...]
--- OUTSIDE RECORDS SUMMARY | ~2020-04-04 | XMS | Encounter Summary ---
Demographics + + + | Address | [address] | | | [place] [address] | + + + | Home Phone [...] Organization | [facility] | | [...] Team Providers + +------+ + | Care Expeller Operator Name | Role | Phone | + +------+ + PCP | Unavailable | + +------+ + Encounter Details +--------+ + + + + | Date | Type | Department | Care Team | Description | +--------+ + + + + | 11/04/ | Hospital | [facility] | Unknown, | | | 2004 | Encounter | MED CTR XRAY [address] | MD Sudhakar . | | | | | [place] | | | | | | [place] [address] | (Fax) | | | | | [phone] | | | +--------+ + + + [...]
--- OUTSIDE RECORDS SUMMARY | ~2020-04-04 | XMS | Encounter Summary ---
Demographics + + + | Address | [address] | | | [place] [address] | + + + | Home Phone [...] + + + | Author | [place] [employer] [facility] | + + + | Organization | [facility] [employer] [facility] [...] Providers + +------+ + | Care Sub Master Name | Role | Phone | + [...] | | Ophthalmology | | Non-[facility] | [place], | | | | | | Epic Dept | Graciela Guardado MD | | | | | | | [address] | | | | | | | [address] | | | | | | | [place], [place] | | | | | | | [address] | | | | | | | Phone: | | | | | | | [phone] | | | | | | | Fax: | | | | | | | [phone] | +--------+--------+ + + + + Encounter Details +--------+---------+ + + + | Date | Type | Department | Care Team | Description | +--------+---------+ + + + | 03/26/ | Office | [facility] | Mo Hood | Pseudotumor cerebri | | 2012 | Visit | [place]/Ophthalmol | MD [place] | (Primary Dx); | | | | ogy at [facility] [address] | | Depression; Type II | | | | [address] [place] Mailcode: | | or unspecified type | | | | [facility] Center for | | diabetes mellitus | | | | Health and Healing, | | without mention of | | | | Building | | complication, not | | | | Floor [place], [place] | | stated as | | | | [address] | | uncontrolled; PTSD | | | | [phone] | | (post-traumatic | | | | [...] HPI: 37 y.o. year old female from [place] : Patient presents with: IIH - Idiopathic [...] because they live 4 hours away in [facility]. Tobacco use: reports that [...] Right Left Disc 1+ Optic disc edema, +AGRICULTURAL ECONOMICS TEACHER 2+ Optic disc edema, RNFL whitening at the superonasal borde r of the disc. There is spontaneous pulsing of the entire disc head with heart beat. C/D Ratio 0.1 0.1 Macula Normal Normal Vessels Engorged. tortuous Engorged. tortuous Periphery Normal Normal Neuro/Psych Oriented x3: Yes Mood/Affect: Normal See [facility] Ophthalmology Exam Module for additional [...] tion (by Dr. Hughes at [facility] in 2006) and s/p multiple lumboperitoneal shunt [...] Dr. Lux. Mo Hood MD Resident Physician [facility] [place], PGY-2 [facility] Physician: Mo Hood MD, 03/26/2013 [...]
--- OUTSIDE RECORDS SUMMARY | ~2020-04-04 | XMS | Encounter Summary ---
Demographics + + + | Address | [address] | | | [place] [address] | + + + | Home Phone [...] + + + | Author | [place] [employer] [facility] | + + + | Organization | [facility] [employer] [facility] [...] Team Providers + +------+ + | Care Implementation Architect Name | Role | Phone | [...] | | | | | | [address] [place], [place] | | | | | | [address] | | | | | | [phone] | | | +--------+ + + + [...]
--- OUTSIDE RECORDS SUMMARY | ~2020-04-04 | XMS | Encounter Summary ---
Demographics + + + | Address | [address] | | | [place] [address] | + + + | Home Phone [...] + + + | Author | [place] [employer] [facility] | + + + | Organization | [facility] [employer] [facility] | + [...] Team Providers + +------+ + | Care Cognos Consultant Name | Role | Phone | [...] Erroneous Encounter | | 2007 | | [place] for [facility] | [place] [facility] | - Disregard | | | | and Healing [address] | Neurosurgery [address] | | | | [address] Mailcode: | [address] | | | | | [facility] Center for | [place], [place] | | | | | Health and Healing, | [address] | | | | | Building [address], [address]th | | | | | | Floor [place], [place] | | | | | | [address] | | | | | | [phone] | | | +--------+ + + + [...]
--- OUTSIDE RECORDS SUMMARY | ~2020-04-04 | XMS | Encounter Summary ---
Demographics + + + | Address | [address] | | | [place] [address] | + + + | Home Phone [...] Providers + +------+ + | Care Sports Journalist Name | Role | Phone | + +------+ + PCP | Unavailable | + +------+ + Encounter Details +--------+ + + + + | Date | Type | Department | Care Team | Description | +--------+ + + + + | 09/20/ | Hospital | [facility] | | | | 1991 | Encounter | MED CTR [facility] | | | | | | HEALTH SV [address] | | | | | | [place], | | | | | | [place] [address] | | | | | | [phone] | | | +--------+ + + + [...]
--- OUTSIDE RECORDS SUMMARY | ~2020-04-04 | XMS | Encounter Summary ---
Demographics + + + | Address | [address] | | | [place] [address] | + + + | Home Phone [...] Organization | [facility] | [...] Team Providers + +------+ + | Care Safety Instructor Name | Role | Phone | + +------+ + PCP | Unavailable | + +------+ + Encounter Details +--------+ + + + + | Date | Type | Department | Care Team | Description | +--------+ + + + + | 07/12/ | Hospital | [facility] | Conversion | | | 2010 | Encounter | HEART MED CTR | Transaction, | | | | | EMERGENCY CENTER | Provider Unknown | | | | | [address] | | | | | | [place] | (Fax) | | | | | [address] | | | | | | [phone] | | | +--------+ + + + [...]
--- OUTSIDE RECORDS SUMMARY | ~2020-04-04 | XMS | Encounter Summary ---
Demographics + + + | Address | [address] | | | [place] [address] | + + + | Home Phone [...] Organization | [facility] | | [...] Providers + +------+ + | Care Home Staging Specialist Name | Role | Phone | + +------+ + PCP | Unavailable | + +------+ + Encounter Details +--------+ + + + + | Date | Type | Department | Care Team | Description | +--------+ + + + + | 09/30/ | Hospital | [facility] | | | | 1991 | Encounter | MED CTR [facility] | | | | | | HEALTH SV [address] | | | | | | [place], | | | | | | [place] [address] | | | | | | [phone] | | | +--------+ + + + [...]
--- OUTSIDE RECORDS SUMMARY | ~2020-04-04 | XMS | Encounter Summary ---
Demographics + + + | Address | [address] | | | [place] [address] | + + + | Home Phone [...] + + + | Author | [place] [employer] [facility] | + + + | Organization | [facility], Mobile Secretary Science [facility] | + + + | Address | Unknown | + + + | Phone | Unavailable | + + + Support + + +---------+ + | Name | Relationship | Address | Phone | + + +---------+ + | Ruby Au | ECON | Unknown | | + + +---------+ + Care Team Providers + +------+ + | Care Travel Med Surg Rn Name | Role | Phone | + +------+ + | Brenden Benavides MD | PCP | | + +------+ + Encounter Details +--------+ + + + + | Date | Type | Department | Care Team | Description | +--------+ + + + + | 09/28/ | Documentati | [facility] | Brad Currie MD | | | 2006 | on | [place] | | | | | | Neuro-Ophthalmology | | | | | | [address] | | | | | | Mailcode: PATTI | | | | | | [place] [address] | | | | | | [phone] | | | +--------+ + + + [...]
--- OUTSIDE RECORDS SUMMARY | ~2020-04-04 | XMS | Encounter Summary ---
Demographics + + + | Address | [address] | | | [place] [address] | + + + | Home Phone [...] Organization | [facility] | | | and [...] Team Providers + +------+ + | Care Facilitator Name | Role | Phone | + +------+ + PCP | Unavailable | + +------+ + Encounter Details +--------+ + + + + | Date | Type | Department | Care Team | Description | +--------+ + + + + | 07/17/ | Hospital | [facility] | Domingo Darby, | | | 2010 | Encounter | HEART MED CTR | [address] | | | | | EMERGENCY CENTER | [place] [address] | | | | | [address] | [phone] | | | | | [place], [place] | | | | | | [address] | | | | | | [phone] | | | +--------+ + + + [...]
--- OUTSIDE RECORDS SUMMARY | ~2020-04-04 | XMS | Encounter Summary ---
Demographics + + + | Address | [address] | | | [place] [address] | + + + | Home Phone [...] + + + | Author | [place] [employer] [facility] | + + + | Organization | [facility] [employer] [facility] | + + + | Address | Unknown | + + + | Phone | Unavailable | + + + Support + + +---------+ + | Name | Relationship | Address | Phone | + + +---------+ + | Ruby Au | ECON | Unknown | | + + +---------+ + Care Team Providers + +------+ + | Care Dissolver Operator Name | Role | Phone | [...] | | | Ave Mailcode: CH8N | [place], [place] | | | | | [facility] | [address] | | | | | and Healing, | [phone] | | | | | [facility] | | | | | | Floor [place], [place] | | | | | | [address] | | | | | | [phone] | | | +--------+ + + + [...]
--- OUTSIDE RECORDS SUMMARY | ~2020-04-04 | XMS | Encounter Summary ---
Demographics + + + | Address | [address] | | | [place] [address] | + + + | Home Phone [...] [facility] | [...] + +------+ + | Care Cardiac Cath Technologist Name | Role | Phone | + +------+ + PCP | Unavailable | + +------+ + Encounter Details +--------+ + + + + | Date | Type | Department | Care Team | Description | +--------+ + + + + | 11/04/ | Hospital | [facility] | Unknown, | | | 2004 | Encounter | MED CTR XRAY [address] | MD Sudhakar . | | | | | [place] | | | | | | [place] [address] | (Fax) | | | | | [phone] | | | +--------+ + + + [...]
--- OUTSIDE RECORDS SUMMARY | ~2020-04-04 | XMS | Encounter Summary ---
Demographics + + + | Address | [address] | | | [place] [address] | + + + | Home Phone [...] + + + | Author | [place] [employer] [facility] | + + + | Organization | [facility] [employer] Science [facility] [...] Team Providers + +------+ + | Care Screen Print Operator Name | Role | Phone | [...] | | | | | [facility] | [place], [place] | | | | | Health and Healing, | [address] | | | | | Building [address] | | | | | | Floor [place], [place] | | | | | | [address] | | | | | | [phone] | | | +--------+ + + + [...]
--- OUTSIDE RECORDS SUMMARY | ~2020-04-04 | XMS | Encounter Summary ---
Demographics + + + | Address | [address] | | | [place] [address] | + + + | Home Phone [...] + + | Author | [place] [employer] [facility] | + + + | Organization | [facility] I Do Now I Don't Science [facility] [...] Team Providers + +------+ + | Care School Guidance Counselor Name | Role | Phone | [...] Cerebri | | 2006 | Visit | [place] | | (Primary Dx) | | | | Neuro-Ophthalmology | | | | | | [address] [facility] | | | | | | Mailcode: PATTI | | | | | | [place] [address] | | | | | | [phone] | | | +--------+---------+ + + + [...] documented as of this encounter Progress Notes [place] - 11/30/2006 11:58 AM PSTFormatting of this [...] Brad Currie MD Neuro-Ophthalmology and Cerebrovascular Disease Library Services Dean of Ophthalmology, Neurology, and Neurosurgery documented in [...] + + +--------+ + + | [place] VISUAL FIELD | Procedures | Routin | Pseudotumor | Ordered: 12/02/2006 | | EXAM,EXTENDED | | e | Cerebri | | + + +--------+ + + documented as of this encounter Visit Diagnoses + + | Diagnosis | + + | Pseudotumor cerebri - Primary Benign intracranial hypertension | + + documented in this encounter"
--- OUTSIDE RECORDS SUMMARY | ~2020-04-04 | XMS | Encounter Summary ---
Demographics + + + | Address | [address] | | | [place] [address] | + + + | Home Phone [...] + | Organization | [facility] | [...] Providers + +------+ + | Care Senior Vice President Name | Role | Phone | [...] | | | [address] [place] | [address] | | | | | [address] | [phone] | | | | | [phone] | | | +--------+ + + + [...]
--- OUTSIDE RECORDS SUMMARY | ~2020-04-04 | XMS | Encounter Summary ---
Demographics + + + | Address | [address] | | | [place] [address] | + + + | Home Phone [...] + + | Author | [place] [employer] [facility] | + + + | Organization | [facility] [employer] [facility] | + [...] Providers + +------+ + | Care Education Research Analyst Name | Role | Phone [...] | | Ave Mailcode: CH8N | [place], [place] | | | | | [facility] | [address] | | | | | and [place], | [phone] | | | | | [facility] | | | | | | Floor [place], [place] | | | | | | [address] | | | | | | [phone] | | | +--------+ + + + [...]
--- OUTSIDE RECORDS SUMMARY | ~2020-04-04 | XMS | Encounter Summary ---
Demographics + + + | Address | [address] | | | [place] [address] | + + + | Home Phone [...] + + + | Author | [place] [email or web address] [facility] | + + + | Organization | [facility] [employer] [facility] | + [...] Providers + +------+ + | Care Digital Associate Media Director Name | Role | Phone | [...] Operative Report | | 2006 | | [place] [facility] [address] | | | | | Transcribed | [address] | | | | | | Mailcode: Center | | | | | | for Health and | | | | | | Healing, [facility] | | | | | | [place], [place] | | | | | | [address] | | | | | | [phone] | | | +--------+ + + + [...] | 02/07/2007 12:00 AM PDT | | [id number] | | [id number] [place] [id number] | | | | Date: 02/07/2007 | | | | Attending Surgeon: Hay Hughes M.D. | | | | Hadoop Java Developer(s): Pascual Bermudez M.D. | | | | [...] and medial orbital | | septum. The entry level administrative assistant retracted the orbital fat bag with [...] | | KYM / LANETTE | | [id number] / [id number] / [id number] / [id number] | | | | | | | | cc: | | | | | | Brad Currie M.D. | | [facility] | | | | | | Brenden Benavides M.D. | | [facility] | | [address] [facility] [address] | | [place] [address] | | | | | | Electronically signed by Hay Hughes 02-12-2007 05:13:05 PM | | | | | + + documented in this encounter Visit Diagnoses Not on filedocumented in this encounter"
--- OUTSIDE RECORDS SUMMARY | ~2020-04-04 | XMS | Encounter Summary ---
Demographics + + + | Address | [address] | | | [place] [address] | + + + | Home Phone [...] + + | Author | [place] [employer] [facility] | + + + | Organization | [facility] [employer] Science [facility] | + + + | Address | Unknown | + + + | Phone | Unavailable | + + + Support + + +---------+ + | Name | Relationship | Address | Phone | + + +---------+ + | Ruby Au | ECON | Unknown | | + + +---------+ + Care Team Providers + +------+ + | Care Film Drying Machine Operator Name | Role | Phone [...] Cerebri | | 2006 | Visit | [place] | | (Primary Dx) | | | | Neuro-Ophthalmology | | | | | | [address] [facility] | | | | | | Mailcode: PATTI | | | | | | [place] [address] | | | | | | [phone] | | | +--------+---------+ + + + [...] documented as of this encounter Progress Notes [place] - 11/30/2006 11:58 AM PSTFormatting of this [...] Brad Currie MD Neuro-Ophthalmology and Cerebrovascular Disease Tar Heater of Ophthalmology, Neurology, and Neurosurgery documented in [...]
--- OUTSIDE RECORDS SUMMARY | ~2020-04-04 | XMS | Encounter Summary ---
Demographics + + + | Address | [address] | | | [place] [address] | + + + | Home Phone [...] + + + | Author | [place] [employer] Science [facility] | + + + | Organization | [facility] [employer] [facility] [...] Providers + +------+ + | Care Senior Environmental Technician Name | Role | Phone | [...] | | | Ave Mailcode: CH8N | [place], [place] | | | | | [facility] | [address] | | | | | and Healing, | [phone] | | | | | [facility] | | | | | | Floor [place], [place] | | | | | | [address] | | | | | | [phone] | | | +--------+ + + + [...]
--- OUTSIDE RECORDS SUMMARY | ~2020-04-04 | XMS | Encounter Summary ---
Demographics + + + | Address | [address] | | | [place] [address] | + + + | Home Phone [...] + + + | Author | [place] [employer] Science [facility] | + + + | Organization | [facility] [employer] [facility] [...] Team Providers + +------+ + | Care Activity Therapy Teacher Name | Role | Phone | [...] Cerebri | | 2006 | Visit | [place] | | (Primary Dx) | | | | Neuro-Ophthalmology | | | | | | [address] [facility] | | | | | | Mailcode: PATTI | | | | | | [place] [address] | | | | | | [phone] | | | +--------+---------+ + + + [...] Referred by: CASIMIRO PAYTON MD [address] [place] [address] Symptoms: Patient feels things are better. Vision [...] Brad Currie MD Neuro-Ophthalmology and Cerebrovascular Disease Medical Record Assistant of Ophthalmology, Neurology, and Neurosurgery documented in this encounter Plan of Treatment + + +--------+ + + | Name | Type | Priori | Associated Diagnoses | Order Schedule | | | | ty | | | + + +--------+ + + | [place] VISUAL FIELD | Procedures | Routin | Pseudotumor | Ordered: 01/30/2007 | | EXAM,EXTENDED | | e | Cerebri | | + + +--------+ + + documented as of this encounter Visit Diagnoses + + | Diagnosis | + + | Pseudotumor cerebri - Primary Benign intracranial hypertension | + + documented in this encounter"
--- OUTSIDE RECORDS SUMMARY | ~2020-04-04 | XMS | Encounter Summary ---
Demographics + + + | Address | [address] | | | [place] [address] | + + + | Home Phone [...] Organization | [facility] | | [...] Providers + +------+ + | Care Glass Blowing Lathe Operator Name | Role | Phone | + +------+ + PCP | Unavailable | + +------+ + Encounter Details +--------+ + + + + | Date | Type | Department | Care Team | Description | +--------+ + + + + | 06/19/ | Hospital | [facility] | | | | 1991 | Encounter | MED CTR [facility] | | | | | | HEALTH SV [address] | | | | | | [place], | | | | | | [place] [address] | | | | | | [phone] | | | +--------+ + + + [...]
--- OUTSIDE RECORDS SUMMARY | ~2020-04-04 | XMS | Encounter Summary ---
Demographics + + + | Address | [address] | | | [place] [address] | + + + | Home Phone [...] [facility] | | [...] Providers + +------+ + | Care Personnel Representative Name | Role | Phone | [...] left hand | [address] | | | | n | Weakness of | [address] | [place], | | | | | both hands | [place], | [place] [address] | | | | | [place] left | [place] [address] | Phone: | | | | | wrist Pain | Phone: | [phone] | | | | | of right | [phone] | Fax: | | | | | thumb | Fax: | [phone] | | | | | Trigger | [phone] | | | | | | finger of | | | | | | | right thumb | | | | | | | Procedures | | | | | | | [place] MOTOR | | | | | | | &/SENS > | | | | | | | NRV CNDJ | | | | | | | PRECONF | | | | | | | ELTRODE LIMB | | | | | | | [place] NEEDLE | | | | | | [...] | | | | | Trigger | [address] | [place] | | | | | finger of | [place], | [place] | | | | | right thumb | [place] [address] | [address] | | | | | | Phone: | Phone: | | | | | | [phone] | [phone] | | | | | | Fax: | Fax: | | | | | | [phone] | [phone] | +--------+ + + + + + [...] | | Rehabilitatio | tunnel | [place] [address] | [address] | | | | n | syndrome on | | [place], | | | | | left | [place] | [place] [address] | | | | | | WAY | Phone: | | | | | | [place], | [phone] | | | | | | [place] [address] | Fax: | | | | | | Phone: | [phone] | | | | | | [phone] | | | | | | | Fax: | | | | | | | [phone] | | +--------+--------+ + + + + Encounter Details +--------+---------+ + + + | Date | Type | Department | Care Team | Description | +--------+---------+ + + + | 01/03/ | Office | [facility] [place] | Amanuel Jennings, | Numbness of left | | 2019 | Visit | PHYSIATRY [address] | MD [address] | hand (Primary Dx); | | | | [address] | [place] | Weakness of both | | | | [place] | [address] | hands; Mass of left | | | | [address] | | wrist; Pain of right | | | | [phone] | | thumb; Trigger | | | [...] encounter Patient Instructions Patient Instructions Adelaide Santa, It Support Analyst - 01/03/2019 1:00 PM Rina chowdhury [...] Acute low back pain Antisocial personality disorder ([facility]) Anxiety disorder Asthma Benign essential hypertension Chronic back pain Chronic obstructive lung disease (HCC) Chronic posttraumatic stress disorder Depressive disorder Diabetes mellitus type 2 in obese ([facility]) Gastroesophageal reflux disease Heroin dependence ([facility]) Hoarse Hypertensive disorder Insomnia with sleep apnea IV drug abuse ([facility]) Low back strain Numbness of left hand Obstructive sleep apnea of adult Opioid dependence on agonist therapy ([facility]) Other chronic pain Panic disorder without agoraphobia with severe panic attacks Polysubstance dependence (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) Tobacco user Trigger finger of right [...] wrist dorsiflexion , finger abduction, and right cook fish eggs. 4/5 hand cook fish eggs on the left Reflexes: 2+ normal and [...] scribed by in my presence, Adelaide Santa, It Support Analyst and are both accurate and comp [...]
--- OUTSIDE RECORDS SUMMARY | ~2020-04-04 | XMS | Encounter Summary ---
Demographics + + + | Address | [address] | | | [place] [address] | + + + | Home Phone [...] + + + | Author | [place] [employer] [facility] | + + + | Organization | [facility] [employer] Science [facility] | [...] Team Providers + +------+ + | Care Serology Technician Name | Role | Phone | [...] ) | | | | Physician's | [place], [place] | | | | | Pavilion, 2nd floor | [address] | | | | | [place], [place] | [phone] | | | | | [address] | | | | | | [phone] | | | +--------+ + + + [...]
--- OUTSIDE RECORDS SUMMARY | ~2020-04-04 | XMS | Encounter Summary ---
Demographics + + + | Address | [address] | | | [place] [address] | + + + | Home Phone [...] + + + | Author | [place] [employer] [facility] | + + + | Organization | [facility] | + + + | Address | Unknown | + + + | Phone | Unavailable | + + + Support + + +---------+ + | Name | Relationship | Address | Phone | + + +---------+ + | Ruby Au | ECON | Unknown | | + + +---------+ + Care Team Providers + +------+ + | Care Stationary Fireman Name | Role | Phone | + [...] | | | Ave Mailcode: [address] | [place], [place] | | | | | [facility] | [address] | | | | | and Healing, | [phone] | | | | | [facility] | | | | | | Floor [place], [place] | | | | | | [address] | | | | | | [phone] | | | +--------+---------+ + + + [...]
--- OUTSIDE RECORDS SUMMARY | ~2020-04-04 | XMS | Encounter Summary ---
Demographics + + + | Address | [address] | | | [place] [address] | + + + | Home Phone [...] + | Organization | [facility] | [...] Providers + +------+ + | Care Insurance Clerk Name | Role | Phone | + +------+ + PCP | Unavailable | + +------+ + Encounter Details +--------+ + + + + | Date | Type | Department | Care Team | Description | +--------+ + + + + | 05/31/ | Hospital | [facility] | | | | 1991 | Encounter | [facility] | | | | | | HEALTH SV [address] | | | | | | [place], | | | | | | [place] [address] | | | | | | [phone] | | | +--------+ + + + [...]
--- OUTSIDE RECORDS SUMMARY | ~2020-04-04 | XMS | Encounter Summary ---
Demographics + + + | Address | [address] | | | [place] [address] | + + + | Home Phone [...] Organization | [facility] [...] Team Providers + +------+ + | Care Time Clock Mechanic Name | Role | Phone | + +------+ + PCP | Unavailable | + +------+ + Encounter Details +--------+ + + + + | Date | Type | Department | Care Team | Description | +--------+ + + + + | 07/07/ | Hospital | [facility] | | | | 1991 | Encounter | MED CTR EMERGENCY | | | | | | CENTER [address] | | | | | | [place] | | | | | | [address] | | | | | | [phone] | | | +--------+ + + + [...]
--- OUTSIDE RECORDS SUMMARY | ~2020-04-04 | XMS | Encounter Summary ---
Demographics + + + | Address | [address] | | | [place] [address] | + + + | Home Phone [...] + + + | Author | [place] [employer] [facility] | + + + | Organization | [facility] [employer] [facility] | + [...] Providers + +------+ + | Care Clinical Manager Home Care Name | Role | Phone | [...] | | | | [address] | [facility], | | | | | | [place], [place] | 10th Floor | | | | | | [address] | [place], [place] | | | | | | Phone: | [address] | | | | | | [phone] | Phone: | | | | | | Fax: | [phone] | | | | | | [phone] | Fax: | | | | | | | [phone] | +--------+--------+ + + + + Reason [...] Sky Maloney | | | | | [facility] | [place], [place] | | | | | [place], [place] | [address] | | | | | [address] | [phone] | | | | | [phone] | | | | | | | [...] the irma aviva. Thanks for coming to [facility] today. Your head CT was negative for any new findings. The neurosurgeon did not think there was a malfunction in your shunt. The aquatics specialist recommends you taking Diomox again and follow up in 1 week at [facility]. Please follow up with your doctor. Rest, [...] + + + | [facility] | [address] | [place], [place] | | | [facility] | [address] | [address] | | | TESTS | | | [...] + + + + + | [facility] | [address] | [place] [address] | | | SERVICES, CORE | SKY [...] | | | | | CHRISTIANO TORRES ([id number]) | | | | | | on 03/14/2013 10:35:55 AM | | | | + + + + + + + + | Specimen | + + | | + + + + + | Narrative | Performed At | + + + | Please click | [facility] | | on view image for the detailed interpretation from [facility] results. | CARDIOLOGY | + + + + + + + + | Performing | Address | City/State/Zipcode | Phone Number | | Organization | | | | + + + + + | [facility] | [address] | [place], [place] | | | CARDIOLOGY | [address] | [address] | | + + + + + [...] [facility] | [address] | [place], [place] | | | ZACHARIAH GRIFFITH OF CARE | [facility] | [address] | | | TESTS | | | [...] [facility] | [address] | [place] [address] | | | SERVICES, CORE | PARK [...] | + + + + + | [facility] | [address] [facility] | [place] [address] | | | SERVICES, CORE | SKY [...] | | | LABORATORY | | | SERBIAN | | | SERVICES, | | | [...] [facility] | [address] | [place] [address] | | | SERVICES, CORE | PARK [...] | + + + + + | [facility] | [address] | [place] [address] | | | SERVICES, CORE | SKY [...] + | [place] - AIRPORT - | [id number] | [place] [address] | | | [place] | | | | + + + + + RAINBOW HOLD TUBE - RED TOP (03/13/2013 11:52 AM PDT) + + | Specimen | + + | Blood - Blood | + + + + + + + | Performing | Address | City/State/Zipcode | Phone Number | | Organization | | | | + + + + + | [facility] | [address] [facility] | [place] [address] | | | SERVICES, CORE | SKY [...]
--- OUTSIDE RECORDS SUMMARY | ~2020-04-04 | XMS | Encounter Summary ---
Demographics + + + | Address | [address] | | | [place] [address] | + + + | Home Phone [...] + + + | Author | [place] [employer] [facility] | + + + | Organization | [facility] [...] Team Providers + +------+ + | Care Mannequin Molder Name | Role | Phone | [...] CH8N | | | | | | [facility] | | | | | | and Healing, | | | | | | Building 1, 8th | | | | | | Floor [place], [place] | | | | | | [address] | | | | | | [phone] | | | +--------+ + + + [...]
--- OUTSIDE RECORDS SUMMARY | ~2020-04-04 | XMS | Encounter Summary ---
Demographics + + + | Address | [address] | | | [place] [address] | + + + | Home Phone [...] + + + | Author | [place] [employer] [facility] | + + + | Organization | [facility] [employer] [facility] | + + + | Address | Unknown | + + + | Phone | Unavailable | + + + Support + + +---------+ + | Name | Relationship | Address | Phone | + + +---------+ + | Ruby Au | ECON | Unknown | | + + +---------+ + Care Team Providers + +------+ + | Care Childbirth And Infant Care Teacher Name | Role | Phone | + +------+ + | Dennis Maddox | PCP | | + +------+ + Encounter Details +--------+ + + + + | Date | Type | Department | Care Team | Description | +--------+ + + + + | 02/28/ | Emergency | [facility] Emergency | | | | 2013 - | | Department [address] | | | | | | [address] | | | | 03/01/ | | [facility] | | | | 2013 | | [place], [place] | | | | | | [address] | | | | | | [phone] | | | +--------+ + + + [...]
--- OUTSIDE RECORDS SUMMARY | ~2020-04-04 | XMS | Encounter Summary ---
Demographics + + + | Address | [address] | | | [place] [address] | + + + | Home Phone [...] + + + | Author | [place] [email or web address] [facility] | + + + | Organization | [facility] [employer] [facility] | + + [...] Providers + +------+ + | Care Tumbling Machine Operator Name | Role | Phone [...] Telephone follow-up | | 2015 | | [place] | [address] | | | | | Neuro-Ophthalmology | [place], [place] | | | | | at [facility] [address] | [address] | | | | | Ave Mailcode: [facility] | [phone] | | | | | [facility] | | | | | | and [place], | | | | | | | | | | | | Floor [place], [place] | | | | | | [address] | | | | | | [phone] | | | +--------+ + + + [...]
--- OUTSIDE RECORDS SUMMARY | ~2020-04-04 | XMS | Encounter Summary ---
Demographics + + + | Address | [address] | | | [place] [address] | + + + | Home Phone [...] + + + | Author | [place] [facility] [employer] [facility] | + + + | Organization | [facility] [employer] [facility] | + [...] Team Providers + +------+ + | Care Gauntlet Pairer Name | Role | Phone | + +------+ + | Pedro Luis Sams MD | PCP | | + +------+ + Encounter Details +--------+ + + + + | Date | Type | Department | Care Team | Description | +--------+ + + + + | 10/19/ | Telephone | [facility] | Funmilayo Osorio MD | | | 2010 | | [place]/Ophthalmol | [address] | | | | | leon at [facility] [address] | [place], [place] | | | | | [address] Mailcode: | [address] | | | | | CH[address] [facility] | [phone] | | | | | Health and Healing, | | | | | | [facility] | | | | | | [place], [place] | | | | | | [address] | | | | | | [phone] | | | +--------+ + + + [...]
--- OUTSIDE RECORDS SUMMARY | ~2020-04-04 | XMS | Encounter Summary ---
Demographics + + + | Address | [address] | | | [place] [address] | + + + | Home Phone [...] + + + | Author | [place] [employer] [facility] | + + + | Organization | [facility] [employer] [facility] | [...] + +------+ + | Care Motor Vehicle Lecturer Name | Role | Phone | [...] Request (Pt | | 2006 | | [place] | Cass[address] | requests more pain | | | | Oculoplastics at | [place], [place] | medication) | | | | [address] | [address] | | | | | [address] | [phone] | | | | | Eye [place] | | | | | | [facility], [facility] floor | | | | | | [place] [address] | | | | | | [phone] | | | +--------+--------+ + + + [...]
--- OUTSIDE RECORDS SUMMARY | ~2020-04-04 | XMS | Encounter Summary ---
Demographics + + + | Address | [address] | | | [place] [address] | + + + | Home Phone [...] + + + | Author | [place] [employer] [facility] | + + + | Organization | [facility] [employer] [facility] | + [...] + +------+ + | Care Blood Bank Laboratory Technologist Name | Role | Phone | [...] Refill Request | | 2012 | | [place]/Ophthalmol | MD Perry | | | | | ramonjaneen at [facility] [address] | | | | | | [address] Mailcode: | | | | | | [address]11[address] [facility] | | | | | | Health and Healing, | | | | | | [facility] | | | | | | Floor [place], [place] | | | | | | [address] | | | | | | [phone] | | | +--------+--------+ + + + [...]
--- OUTSIDE RECORDS SUMMARY | ~2020-04-04 | XMS | Encounter Summary ---
Demographics + + + | Address | [address] | | | [place] [address] | + + + | Home Phone [...] + + | Author | [place] [employer] [facility] | + + + | Organization | Pending [facility] To [facility] [employer] [facility] | + [...] Team Providers + +------+ + | Care Stogy Roller Name | Role | Phone | [...] | | | | | | | [facility] | | | | | | | Hospital | | | | | | | [place], [place] | | | | | | | [address] | | | | | | | Phone: | | | | | | | [phone] | | | | | | | Fax: | | | | | | | [phone] | +--------+--------+ + + + + Encounter Details +--------+ + + + + | Date | Type | Department | Care Team | Description | +--------+ + + + + | 05/07/ | Hospital | [facility] [address] | [place], | | | 2007 | Encounter | [address] | MD [place] | | | | | [facility] [facility] | MD Holden,PhD | | | | | [place] | | | | | | [address] | | | | | | [phone] | | | +--------+ + + + [...] Dennis, | | | | | | M.D.Counselor Camp surgeon: . | | | | | [...] | | | | | cervical region, GAMBIAN and | | | | | | [...] | | | | | | vein with6-[employer] | | | | | | [...] artery. | | | | | | J5Meptnu Berenstein | | | | | | [...] | | | | | with a 6-[employer]oy | | | | | | [...]
--- OUTSIDE RECORDS SUMMARY | ~2020-04-04 | XMS | Encounter Summary ---
Demographics + + + | Address | [address] | | | [place] [address] | + + + | Home Phone [...] + + + | Author | [place] [employer] [facility] | + + + | Organization | [facility] [employer] [facility] | + [...] Team Providers + +------+ + | Care Spice Grinder Name | Role | Phone | [...] Cerebri | | 2006 | Visit | [facility] | Bud Alexander MD [address] | (Primary Dx) | | | | [facility] [address] | [place]i [place] | | | | | [address] | [place], [place] | | | | | Eye [place], [facility] | [address] | | | | | [place], [place] | [phone] | | | | | [address] | [...]
--- OUTSIDE RECORDS SUMMARY | ~2020-04-04 | XMS | Encounter Summary ---
Demographics + + + | Address | [address] | | | [place] [address] | + + + | Home Phone [...] + + | Author | [place] [employer] [facility] | + + + | Organization | [facility] [employer] [facility] | + + + | Address | Unknown | + + + | Phone | Unavailable | + + + Support + + +---------+ + | Name | Relationship | Address | Phone | + + +---------+ + | Ruby Au | ECON | Unknown | | + + +---------+ + Care Team Providers + +------+ + | Care Casino Controller Name | Role | Phone | [...] | | | [facility] | [place], [place] | | | | | Health and Healing, | [address] | | | | | Building | | | | | | Floor [place], [place] | | | | | | [address] | | | | | | [phone] | | | +--------+--------+ + + + [...]
--- OUTSIDE RECORDS SUMMARY | ~2020-04-04 | XMS | Encounter Summary ---
Demographics + + + | Address | [address] | | | [place] [address] | + + + | Home Phone [...] | Organization | [facility] [...] Providers + +------+ + | Care Auto Top Mechanic Name | Role | Phone | + +------+ + PCP | Unavailable | + +------+ + Encounter Details +--------+ + + + + | Date | Type | Department | Care Team | Description | +--------+ + + + + | 10/21/ | Hospital | [facility] | | | | 1991 | Encounter | MED [facility] | | | | | | HEALTH SV [address] | | | | | | [place], | | | | | | [place] [address] | | | | | | [phone] | | | +--------+ + + + [...]
--- OUTSIDE RECORDS SUMMARY | ~2020-04-04 | XMS | Encounter Summary ---
Demographics + + + | Address | [address] | | | [place] [address] | + + + | Home Phone [...] + + | Author | [place] [employer] [facility] | + + + | Organization | [facility] [employer] [facility] | + + [...] Providers + +------+ + | Care Unit Reactor Operator Name | Role | Phone | [...] Papilledema | | 2006 | Visit | [place] | [address] | Associated with | | | | Oculoplastics at | [place], [place] | Increased | | | | [place] [address] [address] | [address] | Intracranial | | | | [address] Sun | [phone] | Pressure; Enlarged | | | | Eye [place] | | Blind Spot; | | | | Building, 5th floor | | Bilateral Headaches | | | | [place] [address] | | | | | | [phone] | | | +--------+---------+ + + + [...] Eye meds: Diamox, Oxycontin, Robaxin. Visual Acuity: [facility] RE 20/20-1 LE 20/25-2 NI Pupil: OS [...]
--- OUTSIDE RECORDS SUMMARY | ~2020-04-04 | XMS | Encounter Summary ---
Demographics + + + | Address | [address] | | | [place] [address] | + + + | Home Phone [...] | Organization | [facility] [...] Providers + +------+ + | Care Clinical Account Manager Name | Role | Phone | + +------+ + PCP | Unavailable | + +------+ + Encounter Details +--------+ + + + + | Date | Type | Department | Care Team | Description | +--------+ + + + + | 04/24/ | Hospital | [facility] | | | | 1991 | Encounter | MED CTR EMERGENCY | | | | | | CENTER [address] | | | | | | [place] | | | | | | [address] | | | | | | [phone] | | | +--------+ + + + [...]
--- OUTSIDE RECORDS SUMMARY | ~2020-04-04 | XMS | Encounter Summary ---
Demographics + + + | Address | [address] | | | [place] [address] | + + + | Home Phone [...] + + + | Author | [place] [employer] [facility] | + + + | Organization | [facility] [employer] [facility] [...] Team Providers + +------+ + | Care Termite Renewal Inspector Name | Role | Phone | [...] Cerebri; | | 2006 | Visit | [place] | [address] | Pain in or Around | | | | Oculoplastics at | [place], [place] | Eye | | | | [address] | [address] | | | | | [address] | [phone] | | | | | Eye [place] | | | | | | [facility] floor | | | | | | [place] [address] | | | | | | [phone] | | | +--------+---------+ + + + [...] to be seen here or by an infusion pharmacist in [facility], but she says she does [...]
--- OUTSIDE RECORDS SUMMARY | ~2020-04-04 | XMS | Encounter Summary ---
Demographics + + + | Address | [address] | | | [place] [address] | + + + | Home Phone [...] + + + | Author | [place] [employer] [facility] | + + + | Organization | On [facility] [employer] [facility] | + [...] Team Providers + +------+ + | Care Documentation Billing Clerk Name | Role | Phone | [...] Letter From | | 2007 | | [facility] | [address] | Specialist | | | | and Healing [address] | [place], [place] | | | | | [address] Mailcode: | [address] | | | | | [address] [facility] | [phone] | | | | | Health and Healing, | | | | | | [facility] | | | | | | Floor [facility] [place] | | | | | | [address] | | | | | | [phone] | | | +--------+ + + + [...]
--- OUTSIDE RECORDS SUMMARY | ~2020-04-04 | XMS | Encounter Summary ---
Demographics + + + | Address | [address] | | | [place] [address] | + + + | Home Phone [...] Organization | [facility] | | | [...] Team Providers + +------+ + | Care Wave Solder Offbearer Name | Role | Phone | + +------+ + PCP | Unavailable | + +------+ + Encounter Details +--------+ + + + + | Date | Type | Department | Care Team | Description | +--------+ + + + + | 08/12/ | Hospital | [facility] | Jenn [place], | | | 2012 | Encounter | HOSPITAL EMERGENCY | [facility] [address] | | | | | CENTER [address] | [place] | | | | | [place] | [address] | | | | | [address] | | | | | | [phone] | | | +--------+ + + + [...]
--- OUTSIDE RECORDS SUMMARY | ~2020-04-04 | XMS | Encounter Summary ---
Demographics + + + | Address | [address] | | | [place] [address] | + + + | Home Phone [...] | Organization | [facility] [...] Team Providers + +------+ + | Care Regulatory Affairs Analyst Name | Role | Phone | + +------+ + PCP | Unavailable | + +------+ + Encounter Details +--------+ + + + + | Date | Type | Department | Care Team | Description | +--------+ + + + + | 07/10/ | Emergency | [facility] | [address] | Headache; Benign | | 2012 | | MEDICAL CENTER | [place] [address] | intracranial | | | | EMERGENCY CENTER | [address] | hypertension; Back | | | | [address] | [place] [address] | pain | | | | [place], [place] | [phone] | | | | | [address] | | | | | | [phone] | | | +--------+ + + + [...] | + + + | ANNABELLA Waters [facility] CT HEAD WO CONTRAST HISTORY: 37 years. [...]
--- OUTSIDE RECORDS SUMMARY | ~2020-04-04 | XMS | Encounter Summary ---
Demographics + + + | Address | [address] | | | [place] [address] | + + + | Home Phone [...] Organization | [facility] | | [...] Providers + +------+ + | Care Store Protection Specialist Name | Role | Phone | + +------+ + PCP | Unavailable | + +------+ + Encounter Details +--------+ + + + + | Date | Type | Department | Care Team | Description | +--------+ + + + + | 05/18/ | Hospital | [facility] | | | | 1991 | Encounter | [facility] | | | | | | HEALTH [address] | | | | | | [place], | | | | | | [place] [address] | | | | | | [phone] | | | +--------+ + + + [...]
--- OUTSIDE RECORDS SUMMARY | ~2020-04-04 | XMS | Encounter Summary ---
Demographics + + + | Address | [address] | | | [place] [address] | + + + | Home Phone [...] + + + | Author | [place] [employer] [facility] | + + + | Organization | [facility] [employer] [facility] [...] Providers + +------+ + | Care Water Pump Servicer Name | Role | Phone | + +------+ + | Brenden Benavides MD | PCP | | + +------+ + Encounter Details +--------+ + + + + | Date | Type | Department | Care Team | Description | +--------+ + + + + | 09/28/ | Documentati | [facility] | Brad Currie MD | | | 2006 | on | [place] | | | | | | Neuro-Ophthalmology | | | | | | [address] | | | | | | Mailcode: PATTI | | | | | | [place] [address] | | | | | | [phone] | | | +--------+ + + + [...]
--- OUTSIDE RECORDS SUMMARY | ~2020-04-04 | XMS | Encounter Summary ---
Demographics + + + | Address | [address] | | | [place] [address] | + + + | Home Phone [...] + + + | Author | [place] [employer] [facility] | + + + | Organization | [facility] [employer] [facility] | + + + | Address | Unknown | + + + | Phone | Unavailable | + + + Support + + +---------+ + | Name | Relationship | Address | Phone | + + +---------+ + | Ruby Au | ECON | Unknown | | + + +---------+ + Care Team Providers + +------+ + | Care Hard Candy Spinner Name | Role | Phone | [...] | | | | and Healing, | [place], [place] | | | | | Building | [address] | | | | | Floor [place], [place] | | | | | | [address] | | | | | | [phone] | | | +--------+---------+ + + + [...]
--- OUTSIDE RECORDS SUMMARY | ~2020-04-04 | XMS | Encounter Summary ---
Demographics + + + | Address | [address] | | | [place] [address] | + + + | Home Phone [...] + + + | Author | [place] [employer] [facility] | + + + | Organization | [facility] | + + + | Address | Unknown | + + + | Phone | Unavailable | + + + Support + + +---------+ + | Name | Relationship | Address | Phone | + + +---------+ + | Ruby Au | ECON | Unknown | | + + +---------+ + Care Team Providers + +------+ + | Care Form Drafter Name | Role | Phone | [...] Cerebri | | 2006 | Visit | Ariel | | (Primary Dx) | | | | Neuro-Ophthalmology | | | | | | [address] [facility] | | | | | | Mailcode: PATTI | | | | | | [place] [address] | | | | | | [phone] | | | +--------+---------+ + + + [...] documented as of this encounter Progress Notes Segrio Zhu - 03/27/2007 11:07 AM PDTFormatting of this note might be differen t from the original. Neuro-Ophthalmology Return Patient Evaluation 03/27/2007 Referred by: CASIMIRO PAYTON MD [address] [place] [address] Per [facility] chart note taken this morning by . Symptoms: Patient specific problem noted by patient: transient visual loss HPI: 31 y.o. year old female from [place] : Patient presents with: Transient visual [...] negative Pulmonary: negative GI: Problems due to fci use of tylenol/ibuprofen. : negative Musculoskeletal: negative [...] Currie MD Neuro-Ophthalmology and Cerebrovascular Disease Flight Control Tower Operator of Ophthalmology, Neurology, and Neurosurgery documented [...]
--- OUTSIDE RECORDS SUMMARY | ~2020-04-04 | XMS | Encounter Summary ---
Demographics + + + | Address | [address] | | | [place] [address] | + + + | Home Phone [...] | Organization | [facility] | | [...] Team Providers + +------+ + | Care Analysis Lead Name | Role | Phone | + +------+ + PCP | Unavailable | + +------+ + Encounter Details +--------+ + + + + | Date | Type | Department | Care Team | Description | +--------+ + + + + | 05/21/ | Hospital | [facility] | | | | 1991 | Encounter | MED [facility] | | | | | | HEALTH [facility] [address] | | | | | | [place], | | | | | | [place] [address] | | | | | | [phone] | | | +--------+ + + + [...]
--- OUTSIDE RECORDS SUMMARY | ~2020-04-04 | XMS | Encounter Summary ---
Demographics + + + | Address | [address] | | | [place] [address] | + + + | Home Phone [...] + + | Author | [place] [employer] [facility] | + + + | Organization | [facility] [employer] [facility] | + + + | Address | Unknown | + + + | Phone | Unavailable | + + + Support + + +---------+ + | Name | Relationship | Address | Phone | + + +---------+ + | Ruby Au | ECON | Unknown | | + + +---------+ + Care Team Providers + +------+ + | Care Harness Builder Name | Role | Phone | [...] Cerebri | | 2006 | Visit | [place] | | | | | | Photography at | | | | | | [address] | | | | | | [address] | | | | | | Eye [place], [address]th | | | | | | floor [place], [place] | | | | | | [address] | | | +--------+---------+ + + + [...] PM DINOAnnabella Au was seen in the [facility] Photography/Ultrasound Department today, 11/30/2006, for ultrasound OU [...]
--- OUTSIDE RECORDS SUMMARY | ~2020-04-04 | XMS | Encounter Summary ---
Demographics + + + | Address | [address] | | | [place] [address] | + + + | Home Phone [...] + + + | Author | [place] [employer] [facility] | + + + | Organization | [facility] | + [...] Team Providers + +------+ + | Care Fast Food Cashier Name | Role | Phone | + [...] | | | Ave Mailcode: CH8N | [place], [place] | | | | | [facility] | [address] | | | | | and Healing, | [phone] | | | | | [facility] | | | | | | Floor [facility] [place] | | | | | | [address] | | | | | | [phone] | | | +--------+---------+ + + + [...]
--- OUTSIDE RECORDS SUMMARY | ~2020-04-04 | XMS | Encounter Summary ---
Demographics + + + | Address | [address] | | | [place] [address] | + + + | Home Phone [...] + + | Author | [place] [employer] [facility] | + + + | Organization | [facility] [employer] [facility] [...] Providers + +------+ + | Care Green Chain Operator Name | Role | Phone | [...] Refill Request | | 2007 | | [facility] | [place]SE | | | | | and Healing [address] | Neurosurgery [address] | | | | | [address] Mailcode: | [address] | | | | | CH[facility] | [place], [place] | | | | | Health and Healing, | [address] | | | | | Building | | | | | | Floor [place], [place] | | | | | | [address] | | | | | | [phone] | | | +--------+--------+ + + + [...]
--- OUTSIDE RECORDS SUMMARY | ~2020-04-04 | XMS | Encounter Summary ---
Demographics + + + | Address | [address] | | | [place] [address] | + + + | Home Phone [...] + + + | Author | [place] [employer] [facility] | + + + | Organization | [facility] [employer] 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
--- OUTSIDE RECORDS SUMMARY | ~2020-04-04 | XMS | Encounter Summary ---
Demographics + + + | Address | [address] | | | [place] [address] | + + + | Home Phone [...] + + | Author | [place] [employer] [facility] | + + + | Organization | [facility] [employer] [facility] [...] Team Providers + +------+ + | Care Oxyacetylene Burner Name | Role | Phone | [...] | | [address] Mailcode:OP14B | Sandra [place], | | | | | [place] [employer] | [place] [address] | | | | | [place], [place] | | | | | | [address] | | | | | | [phone] | | | +--------+ + + + [...]
--- OUTSIDE RECORDS SUMMARY | ~2020-04-04 | XMS | Encounter Summary ---
Demographics + + + | Address | [address] | | | [place] [address] | + + + | Home Phone [...] + + + | Author | [place] [employer] [facility] | + + + | Organization | [facility] [employer] [facility] | + [...] Team Providers + +------+ + | Care Blow Torch Burner Name | Role | Phone | [...] | | | Ave Mailcode: CH8N | [place], [place] | | | | | [facility] | [address] | | | | | and [facility], | [phone] | | | | | [facility] | | | | | | Floor [place], [place] | | | | | | [address] | | | | | | [phone] | | | +--------+ + + + [...]
--- OUTSIDE RECORDS SUMMARY | ~2020-04-04 | XMS | Encounter Summary ---
Demographics + + + | Address | [address] | | | [place] [address] | + + + | Home Phone [...] + + | Organization | [facility] | | [...] Providers + +------+ + | Care Student Admissions Clerk Name | Role | Phone | + +------+ + PCP | Unavailable | + +------+ + Encounter Details +--------+ + + + + | Date | Type | Department | Care Team | Description | +--------+ + + + + | 01/15/ | Hospital | [facility] | [place] | | | 2011 | Encounter | MED CTR EMERGENCY | DO Gaurang Drake | | | | | [address] | [place], [place] | | | | | [place], [place] | [address] | | | | | [address] | | | | | | [phone] | | | +--------+ + + + [...]
--- OUTSIDE RECORDS SUMMARY | ~2020-04-04 | XMS | Encounter Summary ---
Demographics + + + | Address | [address] | | | [place] [address] | + + + | Home Phone [...] | [facility] | [...] Team Providers + +------+ + | Care Jitney Driver Name | Role | Phone | + +------+ + PCP | Unavailable | + +------+ + Encounter Details +--------+ + + + + | Date | Type | Department | Care Team | Description | +--------+ + + + + | 10/25/ | Hospital | [facility] | | | | 1991 | Encounter | MED CTR EMERGENCY | | | | | | CENTER [address] | | | | | | [place] | | | | | | [address] | | | | | | [phone] | | | +--------+ + + + [...]
--- OUTSIDE RECORDS SUMMARY | ~2020-04-04 | XMS | Encounter Summary ---
Demographics + + + | Address | [address] | | | [place] [address] | + + + | Home Phone [...] + + + | Author | [place] [employer] [facility] | + + + | Organization | [facility] [employer] [facility] | + + [...] Providers + +------+ + | Care Magnetic Prospecting Supervisor Name | Role | Phone | [...] [place], [place] | | | | | [facility] | [address] | | | | | and Healing, | [phone] | | | | | [facility] | | | | | | Floor [place], [place] | | | | | | [address] | | | | | | [phone] | | | +--------+ + + + [...]
--- OUTSIDE RECORDS SUMMARY | ~2020-04-04 | XMS | Encounter Summary ---
Demographics + + + | Address | [address] | | | [place] [address] | + + + | Home Phone [...] | [facility] [...] Team Providers + +------+ + | Care Sighter Name | Role | Phone | + +------+ + PCP | Unavailable | + +------+ + Encounter Details +--------+ + + + + | Date | Type | Department | Care Team | Description | +--------+ + + + + | 11/22/ | Hospital | [facility] | | | | 1995 | Encounter | MED CTR EMERGENCY | | | | | | CENTER [address] | | | | | | [place] | | | | | | [address] | | | | | | [phone] | | | +--------+ + + + [...]
--- OUTSIDE RECORDS SUMMARY | ~2020-04-04 | XMS | Encounter Summary ---
Demographics + + + | Address | [address] | | | [place] [address] | + + + | Home Phone [...] + + + | Author | [place] [employer] [facility] | + + + | Organization | [facility] [facility] | + [...] Providers + +------+ + | Care Car Ferry Master Name | Role | Phone | [...] CH8N | | | | | | [facility] | | | | | | and Healing, | | | | | | Building [address], | | | | | | Floor [place], [place] | | | | | | [address] | | | | | | [phone] | | | +--------+ + + + [...]
--- OUTSIDE RECORDS SUMMARY | ~2020-04-04 | XMS | Encounter Summary ---
Demographics + + + | Address | [address] | | | [place] [address] | + + + | Home Phone [...] + + + | Author | [place] [employer] [facility] | + + + | Organization | [facility] [employer] [facility] [...] Team Providers + +------+ + | Care Boarding Specialist Name | Role | Phone | + +------+ + | Brenden Benavides MD | PCP | | + +------+ + Encounter Details +--------+ + + + + | Date | Type | Department | Care Team | Description | +--------+ + + + + | 02/21/ | Telephone | [facility] | [address] | | | 2006 | | [place] | [address] | | | | | Oculoplastics at | [facility] [place] | | | | | Maicol Perez [address] | [address] | | | | | [address] | | | | | | Eye [place] | | | | | | [facility], 5th floor | | | | | | [place] [address] | | | | | | [phone] | | | +--------+ + + + [...]
--- OUTSIDE RECORDS SUMMARY | ~2020-04-04 | XMS | Encounter Summary ---
Demographics + + + | Address | [address] | | | [place] [address] | + + + | Home Phone [...] + + + | Author | [place] [employer] [facility] [place] [facility] | + + + | Organization | [facility] [employer] [facility] [place] [facility] | [...] Providers + +------+ + | Care Plant Mechanic Name | Role | Phone | + +------+ + | Dennis Maddox | PCP | | + +------+ + Encounter Details +--------+ + + + + | Date | Type | Department | Care Team | Description | +--------+ + + + + | 03/15/ | Telephone | [facility] | Ronaldo Martin MD | | | 2012 | | [place]/Ophthalmol | [facility] [place] | | | | | leon at [facility] [address] | [address] [place] [address] | | | | | [address]luc[address] Kirk Mailcode: | [place] [address] | | | | | CH11P [facility] | [phone] | | | | | Health and Healing, | | | | | | | | | | | | [place], [place] | | | | | | [address] | | | | | | [phone] | | | +--------+ + + + [...]
--- OUTSIDE RECORDS SUMMARY | ~2020-04-04 | XMS | Encounter Summary ---
Demographics + + + | Address | [address] | | | [place] [address] | + + + | Home Phone [...] + + + | Author | [place] [employer] [facility] | + + + | Organization | [facility] [employer] [facility] | + [...] Team Providers + +------+ + | Care Kinesiologist Name | Role | Phone | + [...] | 08/24/ | Emergency | [facility] Emergency | Tylor Mcclellan, | | | 2010 | | Department [address] | [address] | | | | | [address] | MD Joey [address] | | | | | [facility] | [facility] [place] | | | | | [place], [place] | [place], [place] | | | | | [address] | [address] | | | | | [phone] | [phone] | | | | | | | [...] | | | assessment and plan. Rach Guillne MD PGY-2, Neurosurgery | | | 3:53 [...]
--- OUTSIDE RECORDS SUMMARY | ~2020-04-04 | XMS | Encounter Summary ---
Demographics + + + | Address | [address] | | | [place] [address] | + + + | Home Phone [...] + + + | Author | [place] [employer] [facility] | + + + | Organization | [facility] [employer] [facility] | + + + | Address | Unknown | + + + | Phone | Unavailable | + + + Support + + +---------+ + | Name | Relationship | Address | Phone | + + +---------+ + | Ruby Au | ECON | Unknown | | + + +---------+ + Care Team Providers + +------+ + | Care Warranty Administrator Name | Role | Phone | [...] | | | Ave Mailcode: CH8N | [place], [place] | | | | | [facility] | [address] | | | | | and Healing, | [phone] | | | | | [facility] | | | | | | Floor [place], [place] | | | | | | [address] | | | | | | [phone] | | | +--------+ + + + [...]
--- OUTSIDE RECORDS SUMMARY | ~2020-04-04 | XMS | Encounter Summary ---
Demographics + + + | Address | [address] | | | [place] [address] | + + + | Home Phone [...] + + + | Author | [place] [employer] [facility] | + + + | Organization | [facility] [employer] [facility] | + [...] Team Providers + +------+ + | Care Choir Teacher Name | Role | Phone | [...] | | | CH8N [facility] | [place], [place] | | | | | Health and Healing, | [address] | | | | | Building [address], [address]th | | | | | | Floor [place], [place] | | | | | | [address] | | | | | | [phone] | | | +--------+ + + + [...]
--- OUTSIDE RECORDS SUMMARY | ~2020-04-04 | XMS | Encounter Summary ---
Demographics + + + | Address | [address] | | | [place] [address] | + + + | Home Phone [...] + + + | Author | [place] [employer] [facility] | + + + | Organization | [facility] [employer] [facility] | + + [...] + +------+ + | Care Director Corporate Sales Name | Role | Phone | [...] Letter From | | 2007 | | [facility] | [address] | Specialist | | | | and Healing [address] | [place], [place] | | | | | [address] Mailcode: | [address] | | | | | CH8N [facility] | [phone] | | | | | Health and Healing, | | | | | | [facility] | | | | | | Floor [facility] [place] | | | | | | [address] | | | | | | [phone] | | | +--------+ + + + [...]
--- OUTSIDE RECORDS SUMMARY | ~2020-04-04 | XMS | Encounter Summary ---
Demographics + + + | Address | [address] | | | [place] [address] | + + + | Home Phone [...] + + + | Author | [place] [employer] [facility] | + + + | Organization | [facility] [employer] [facility] | + [...] Providers + +------+ + | Care Computer Sciences Professor Name | Role | Phone | [...] | | Ave Mailcode: CH8N | [place], [place] | | | | | [facility] | [address] | | | | | and Healing, | [phone] | | | | | [facility] | | | | | | Floor [place], [place] | | | | | | [address] | | | | | | [phone] | | | +--------+ + + + [...]
--- OUTSIDE RECORDS SUMMARY | ~2020-04-04 | XMS | Encounter Summary ---
Demographics + + + | Address | [address] | | | [place] [address] | + + + | Home Phone [...] | Organization | [facility] [...] Team Providers + +------+ + | Care Growth Hacker Name | Role | Phone | + +------+ + PCP | Unavailable | + +------+ + Encounter Details +--------+ + + + + | Date | Type | Department | Care Team | Description | +--------+ + + + + | 05/26/ | Hospital | [facility] | Alexa Bower DO | Infection of lumbar | | 2017 - | Encounter | CENTER SURG[facility] [address] | [address] | spine (HCC); Type [address] | | | [address] | [place] [address] | diabetes mellitus | | 05/27/ | | [place], [place] | [phone] | without | | 2017 | | [address] | | complication, | | | | [phone] | | unspecified long | | | | | | term insulin use | | | | | | status ([facility]); | | | | | | History of drug | | | | | | abuse ([facility]); BMI | | | | | | 40.0-44.9, adult | | | | | | ([facility]); Back pain, | | | [...] 1542 Date of Service: 05/27/171842 Status: Signed Acid Crane Operator: Reynold Garcia MD (Physician) I was [...] 05/27/171849 Date of Service: 05/27/171842 Status: Signed Acid Crane Operator: Mesha Brown RN (Registered Nurse) Pt [...] got on the elevator with friends. Dr. Devlin ahn, resident called back and RN notified him of patient le aving AMA. Mesha Brown RN 05/27/2017 6:50 PM onver ludwin Transaction, Provider Unknown - 05/27/2017 1:03 PM PDT Nurse Progress Note by Mesha Brown RN at 05/27/17 1303 Author: Mesha Brown RN Service: (none) Author Type: Registered Nurse Filed: 05/27/17 1304 Date of Service: 05/27/17 1303 Status: Signed Acid Crane Operator: Mesha Brown RN (Registered Nurse) Went [...] Date of Service: 05/27/17 1045 Status: Signed Acid Crane Operator: Da Goode RN (Registered Nurse) 05/27/17 [...] Oriented Prior functional status independant Power of Private Eye No Anticipated Discharge Plan Post Acute Care Needs None at this time Resources Financial concerns No Transportation issues No ( will transport) Patient/Family concerns No Prescription Plan Yes Name of Pharmacy [facility] phone number [phone] Previous home health equipment No Vascular access device No Ostomy/Drains/Appliances No Anticipated Disposition Facility Type Home Met with patient at bedside. Annabella is a 41 year old female with a history of anxiety/depre sssion, HTN, COPD, DM type 2, and IV drug use. She lives in [place], [place] with her daughter 2 6, and 14 year old twins. Her is currently getting a new house ready for them to mov e into and is active in their lives. Annabella went to [facility] for pelvic pain and spotting but left AMA while waiting for MR I results because she couldn't smoke. The hospital called her and recommended her to go to [facility] based on the MRI results. Patient is independent in all ADL's. Because of the IV drug use, sending her home with an I V line is not recommended is she needs outpatient IV abx. Patient's PCP is: Virginia Reddy INFORMATION MANAGEMENT OFFICER Patient's insurance:[facility] TEST FACILITY ENGINEER; [employer] Coverage concerns:no Medication coverage/concerns: no Community resources utilized / needed: TBD Assistance in transportation: not at this time Identification of any specific education / training: TBD Barriers to Discharge / Alternative housing needed: not at this time Anticipated DCP: Home DA GOODE RN Case Management [phone] orens peyman, Andre Marmolejo MD - 05/27/2017 9:46 AM PDT Progress Notes by Andre Alonso MD-R1 at 05/27/17 0946 Author: [email or web address] [email or web address] Service: Hospitalist Author Type: Resident-Y1 Filed: 05/27/171900 Date of Service: 05/27/17945 Status: Attested Acid Crane Operator: JIMENA [email or web address] (Resident-Y1) Cosigner: Reynold Garcia MD [...] hospitalization due to abuse p otential and half-way side effects. I anticipate that pt may not be happy during this hospi yuridia stay for this reason. I recommend risk management to see pt proactively. IVDU; heroin H/o CAR REPAIRER shunt. [facility] Service: Hospitalist Progress Note Hospital Day: LOS: 0 days Post-Op Day: * No surgery found * SUBJECTIVE Patient Summary: the patient is a 41-year-old female with significant past medical h istory of type II diabetes, hypertension, gastroesophageal reflux disease, depression, IV dr hawa goldsmith who is a transfer from [facility] for further evaluation. Events Overnight: The [...] IV drug abuse who was transferred from [facility] in [place], [place] for further evaluation of suspicious lumbar [...] 05/27/17635 Date of Service: 05/27/17633 Status: Signed Acid Crane Operator: Cathy Garcia RN (Registered Nurse) Contacted [facility]. Will fax over current microbiology GC test along with most current wound culture results. onver ludwin Transaction, Provider Unknown - 05/27/2017 5:15 AM PDT Progress Notes by Remy Trinidad RPH at 05/27/17514 Author: Remy Trinidad RPH Service: Pharmacy Author Type: Pharmacist Filed: 05/27/17514 Date of Service: 05/27/17514 Status: Signed Acid Crane Operator: Remy Trinidad RPH (Pharmacist) Note ccl [...] NEGATIVE Testing | | | performed at [facility];[address] [place] [address];[place] [address] | | + + + + +---------+ [...] | | | Fingerstick | performed at [facility];[address] | | LAB | | | | [address]da Hammer;[place] | | | | | | [address] | | | | + + + [...] | | | Fingerstick | performed at [facility];[address] | | LAB | | | | [address];[place], [place] | | | | | | [address] | | | | + + + [...] - 1.030 | EXTERNAL | | | [place], | | | LAB | | | [...] | | l squamous | performed at [facility], [address] | | LAB | | | epithelia, | Teresa [place], | | | | | UA | [place] [address] | | | | + + + [...] | | | Patient | performed at [facility];[address] | | LAB | | | | [address];[place], [place] | | | | | | [address] | | | | + + + [...] | | | | | performed at [facility] | | | | | | Nereyda Clark;[place], [place] | | | | | | [address] | | | | + + + [...] | | | Basophils | performed at [facility], [address] | K/uL | LAB | | | | [place], | | | | | | [place] [address] | | | | + + + [...] EXTERNAL | | | | performed at [facility], [address] | | LAB | | | | [place], | | | | | | [place] [address] | | | | + + + [...] | | | | | [place] [address] | | | | + + + [...] + + | Hemoglobin | 5.7Comment: The Martiniquais | 4.0 - 6.0 % | EXTERNAL [...] | | | | | performed at [facility], [address] | | | | | | [facility], | | | | | | [place] [address] | | | | + + + [...] | | | | | | at [facility], [address] | | | | | | [facility], | | | | | | [place] [address] | | | | + + + [...] | | | Fingerstick | performed at [facility];[address] | | LAB | | | | [address] Hammer;[place], [place] | | | | | | [address] | | | | + + + [...] | | | | | performed at [facility];[address] | | | | | | [facility];[place], [place] | | | | | | [address] | | | | + + + [...] EXTERNAL | | | | performed at [facility];888 | mmol/L | LAB | | | | Dawn [facility];[place], [place] | | | | | | [address] | | | | + + + [...] at | | | | | | [facility];[address] [place] [address] | | | | | | [facility];[place] [address] | | | | + + + [...] EXTERNAL | | | | performed at [facility];[address] | | LAB | | | | Ne[address]da Hammer;[place] | | | | | | [address] | | | | + + + [...] EXTERNAL | | | | performed at [facility];[address] | | LAB | | | | [address]da Hammer;[place], [place] | | | | | | [address] | | | | + + + [...] | | | QUALITATIVE | performed at [facility];[address] | | LAB | | | | Nereyda Hammer;[place] | | | | | | [address] | | | | + + + [...] - 1.030 | EXTERNAL | | | [place], | | | LAB | | | [...] | | | Cells | performed at [facility];[address] | | LAB | | | | Nereyda Hammer;[place], [place] | | | | | | [address] | | | | + + + [...] Type 2 diabetes mellitus without complication, unspecified moth exterminator insulin use | | status | + [...]
--- OUTSIDE RECORDS SUMMARY | ~2020-04-04 | XMS | Encounter Summary ---
Demographics + + + | Address | [address] | | | [place] [address] | + + + | Home Phone [...] | [facility] | | [...] Providers + +------+ + | Care Assistant Chief Train Dispatcher Name | Role | Phone | + +------+ + PCP | Unavailable | + +------+ + Encounter Details +--------+ + + + + | Date | Type | Department | Care Team | Description | +--------+ + + + + | 08/10/ | Hospital | [facility] | | | | 1990 | Encounter | [facility] | | | | | | CENTER [address] | | | | | | [place] | | | | | | [address] | | | | | | [phone] | | | +--------+ + + + [...]
--- OUTSIDE RECORDS SUMMARY | ~2020-04-04 | XMS | Encounter Summary ---
Demographics + + + | Address | [address] | | | [place] [address] | + + + | Home Phone [...] + + + | Author | [place] [employer] [facility] | + + + | Organization | [facility] [employer] [facility] [...] Team Providers + +------+ + | Care Laborer Construction Or Leak Gang Name | Role | Phone | + [...] | | | | | cerebri | [address] | | | | | | Procedures | Ave | | | | | | CONSULT TO | [place], [place] | | | | | | [facility] | [address] | | | | | | | Phone: | | | | | | | [phone] | | | | | | | Fax: | | | | | | | [phone] | | +--------+--------+ + + + + [...] Cerebri | | 2005 | Visit | [facility] | [address] | (Primary Dx) | | | | Rd Mailcode:OP14B | [place], [place] | | | | | [facility] | [address] | | | | | [place], [place] | [phone] | | | | | [address] | | | | | | [phone] | | | +--------+---------+ + + + [...] pressu re. Referral to Dr. Maloney in [place] where a lumboperitoneal shunt was placed [...] SPORTS MEDICINE rather than to return to [place] based on travel convenience. Review of Systems: [...] without; Neuro-ophthalmology consultation. [facility] Plan of Treatment Not on [...]
--- OUTSIDE RECORDS SUMMARY | ~2020-04-04 | XMS | Encounter Summary ---
Demographics + + + | Address | [address] | | | [place] [address] | + + + | Home Phone [...] [facility] [...] Team Providers + +------+ + | Care Curing Pickling Packer Name | Role | Phone | + [...] | | [place] | [place] [address] | | | | | [address] | | | | | | [phone] | | | +--------+ + + + [...]
--- OUTSIDE RECORDS SUMMARY | ~2020-04-04 | XMS | Encounter Summary ---
Demographics + + + | Address | [address] | | | [place] [address] | + + + | Home Phone [...] + + + | Author | [place] [employer] [facility] | + + + | Organization | [facility] [employer] [facility] [...] Team Providers + +------+ + | Care Submarine Cable Equipment Technician Name | Role | Phone | [...] | | | Ave Mailcode: CH8N | [place], [place] | | | | | [facility] | [address] | | | | | and Healing, | [phone] | | | | | [facility] | | | | | | Floor [place], [place] | | | | | | [address] | | | | | | [phone] | | | +--------+--------+ + + + [...]
--- OUTSIDE RECORDS SUMMARY | ~2020-04-04 | XMS | Encounter Summary ---
Demographics + + + | Address | [address] | | | [place] [address] | + + + | Home Phone [...] + + + | Author | [place] [employer] [facility] | + + + | Organization | [facility] [employer] [facility] | + [...] Providers + +------+ + | Care Employment Service Specialist Name | Role | Phone [...] Cerebri | | 2006 | Visit | [place] | | (Primary Dx) | | | | Neuro-Ophthalmology | | | | | | [address] [facility] | | | | | | Mailcode: CE | | | | | | [place] [address] | | | | | | [phone] | | | +--------+---------+ + + + [...] Referred by: CASIMIRO PAYTON MD [address] [place] [address] Symptoms: She has not been taking her [...] Currie MD Neuro-Ophthalmology and Cerebrovascular Disease Hand Hide Stretcher of Ophthalmology, Neurology, and Neurosurgery documented in this encounter Plan of Treatment + + +--------+ + + | Name | Type | Priori | Associated Diagnoses | Order Schedule | | | | ty | | | + + +--------+ + + | NM VISUAL FIELD | Procedures | Routin | Pseudotumor | Ordered: 12/19/2006 | | EXAM,EXTENDED | | e | Cerebri | | + + +--------+ + + documented as of this encounter Visit Diagnoses + + | Diagnosis | + + | Pseudotumor cerebri - Primary Benign intracranial hypertension | + + documented in this encounter"
--- OUTSIDE RECORDS SUMMARY | ~2020-04-04 | XMS | Encounter Summary ---
Demographics + + + | Address | [address] | | | [place] [address] | + + + | Home Phone [...] + + | Author | [place] [employer] [facility] | + + + | Organization | [facility] [employer] [facility] [...] Providers + +------+ + | Care Motorcycle Repairer Name | Role | Phone | [...] | | | Ave Mailcode: CH8N | [place], [place] | Encounters | | | | [facility] | [address] | | | | | and [place], | [phone] | | | | | [facility] | | | | | | Floor [place], [place] | | | | | | [address] | | | | | | [phone] | | | +--------+ + + + [...]
--- OUTSIDE RECORDS SUMMARY | ~2020-04-04 | XMS | Encounter Summary ---
Demographics + + + | Address | [address] | | | [place] [address] | + + + | Home Phone [...] + + + | Author | [place] [employer] [facility] | + + + | Organization | [facility] alooma [facility] | + + + | Address | Unknown | + + + | Phone | Unavailable | + + + Support + + +---------+ + | Name | Relationship | Address | Phone | + + +---------+ + | Ruby Au | ECON | Unknown | | + + +---------+ + Care Team Providers + +------+ + | Care Optometrist Name | Role | Phone | + [...] | | | [address] Mailcode: RPB07 | [place], [place] | | | | | [place], [place] | [address] | | | | | [address] | [phone] | | | | | [phone] | | | +--------+ + + + [...]
--- OUTSIDE RECORDS SUMMARY | ~2020-04-04 | XMS | Encounter Summary ---
Demographics + + + | Address | [address] | | | [place] [address] | + + + | Home Phone [...] + + + | Author | [place] [employer] [facility] | + + + | Organization | [facility] [employer] Science [facility] [...] Team Providers + +------+ + | Care Screening Technician Name | Role | Phone | [...] | | CH[address] [facility] | [place], [place] | | | | | Health and Healing, | [address] | | | | | Building [address] | | | | | | Floor [place], [place] | | | | | | [address] | | | | | | [phone] | | | +--------+ + + + [...]
--- OUTSIDE RECORDS SUMMARY | ~2020-04-04 | XMS | Clinical Summary ---
Demographics + + + | Address | [address] | | | [place] [address] | + + + | Home Phone [...] | [facility] [...] Team Providers + +------+ + | Care Benefits Coordinator Name | Role | Phone | [...] | | 08/26/2015, 11/03/2011, | | | (Season Ended) | 0 | 09/22/2010 | | + + + [...] +---------+--------+ | MEDICAID [place] | MEDICA | [id number] | 11/09/ | [phone] | | Medica | | | [place] | | 2018-P | 2 | | id | | | PLUS | | resent | | | | + +--------+ +--------+ +---------+--------+ | [facility] | IHS | [id number] | 11/08/ | | | Indemn | [...] | 1975 | [phone] | [place] [address] | | | rene | | | 5 (Home) | | + +--------+ +--------+ + + Advance Directives + + + + + | Type | Date Recorded | Patient | Explanation | | | | Financial Report Service Sales Agent | | + + + + + | Power of | | | | | Wood Form Builder | | | | + + + + + | Advance | | | | | Directive | | | | + + + + +
--- OUTSIDE RECORDS SUMMARY | ~2020-04-04 | XMS | Encounter Summary ---
Demographics + + + | Address | [address] | | | [place] [address] | + + + | Home Phone [...] + + + | Author | [place] [employer] [facility] | + + + | Organization | [facility] [employer] [facility] [...] Team Providers + +------+ + | Care Cytotechnologist/Histotechnologist Name | Role | Phone | + [...] | | | Ave Mailcode: CH8N | [place], [place] | | | | | [facility] | [address] | | | | | and Healing, | [phone] | | | | | | | | | | | Floor [place], [place] | | | | | | [address] | | | | | | [phone] | | | +--------+ + + + [...]
--- OUTSIDE RECORDS SUMMARY | ~2020-04-04 | XMS | Encounter Summary ---
Demographics + + + | Address | [address] | | | [place] [address] | + + + | Home Phone [...] Organization | [facility] | [...] Providers + +------+ + | Care Single Needle Operator Name | Role | Phone | + +------+ + PCP | Unavailable | + +------+ + Encounter Details +--------+ + + + + | Date | Type | Department | Care Team | Description | +--------+ + + + + | 05/31/ | Hospital | [facility] | | | | 1991 | Encounter | [facility] | | | | | | HEALTH [address] | | | | | | [place], | | | | | | [place] [address] | | | | | | [phone] | | | +--------+ + + + [...]
--- OUTSIDE RECORDS SUMMARY | ~2020-04-04 | XMS | Encounter Summary ---
Demographics + + + | Address | [address] | | | [place] [address] | + + + | Home Phone [...] + + + | Author | [place] [employer] [facility] | + + + | Organization | [facility] [employer] [facility] [...] Team Providers + +------+ + | Care Barometers Calibrator Name | Role | Phone | + [...] | | | CH[facility] | [place], [place] | | | | | Health and Healing, | [address] | | | | | Building [address] | | | | | | Floor [place], [place] | | | | | | [address] | | | | | | [phone] | | | +--------+ + + + [...]
--- OUTSIDE RECORDS SUMMARY | ~2020-04-04 | XMS | Clinical Summary ---
Demographics + + + | Address | [address] | | | [place] [address] | + + + | Home Phone | | + + + | Preferred Language | Unknown | + + + | Marital Status | | + + + | Temple Affiliation | Unknown | + + + | Race | Unknown | + + + | Ethnic Group | Unknown | + + + Author + + + | Author | [employer] (Historical as of | | | 07-14-19) | + + + | Organization | [facility] [employer] (Historical as of | | | 07-14-19) [...] Team Providers + +------+ + | Care Oiler Helper Name | Role | Phone | [...] +------+-------+ + | MEDICAID | MEDICA | [id number] | | | [address] | | | [place] | | | | [place], [place] | | | [place] | | | | [address] | + +--------+ +------+-------+ + | [facility] | YELLOW | [id number] | | | | | PLANS | [...] | | sameera/Jean-Claude | | 1974 | [phone] | [place] | | | rene | | | [phone] | [address] | + +--------+ +--------+ + +
--- OUTSIDE RECORDS SUMMARY | ~2020-04-04 | XMS | Encounter Summary ---
Demographics + + + | Address | [address] | | | [place] [address] | + + + | Home Phone [...] + + + | Author | [place] [employer] [facility] | + + + | Organization | [facility] [employer] [facility] | + [...] Team Providers + +------+ + | Care Departmental Buyer Name | Role | Phone | [...] Operative Report | | 2006 | | [place] at [facility] [address] | | | | | Transcribed | [address] | | | | | | Mailcode: Center | | | | | | for Health and | | | | | | Healing, [facility] [address] | | | | | | [place], [place] | | | | | | [address] | | | | | | [phone] | | | +--------+ + + + [...] | 02/07/2007 12:00 AM PDT | | [id number] | | [id number] PAT Waters [id number] | | | | Date: 02/07/2007 | | | | Attending Surgeon: Hay Hughes M.D. | | | | Database Management Specialist(s): Pascual Bermudez M.D. | | | | [...] and medial orbital | | septum. The sales and marketing assistant retracted the orbital fat bag with [...] | | KYM / LANETTE | | [id number] / [id number] / [id number] / [id number] | | | | | | | | cc: | | | | | | Brad Currie M.D. | | [facility] | | | | | | Brenden Benavides M.D. | | [facility] | | [address] [facility] [address] | | [place] [address] | | | | | | Electronically signed by Hay Hughes 02-12-2007 05:13:05 PM | | | | | + + documented in this encounter Visit Diagnoses Not on filedocumented in this encounter"
--- OUTSIDE RECORDS SUMMARY | ~2020-04-04 | XMS | Encounter Summary ---
Demographics + + + | Address | [address] | | | [place] [address] | + + + | Home Phone [...] + + + | Author | [place] [employer] [facility] | + + + | Organization | [facility] [employer] [facility] [...] Team Providers + +------+ + | Care Scientologist Name | Role | Phone | + +------+ + | Yesion Simms MD | PCP | Unavailable | [...] Erroneous Encounter | | 2007 | | [facility] | [facility] | - Disregard | | | | and Healing [address] | Neurosurgery [address] | | | | | [address] Mailcode: | [address] | | | | | [facility] Center for | [place], [place] | | | | | Health and Healing, | [address] | | | | | Building [address], [address]th | | | | | | Floor [place], [place] | | | | | | [address] | | | | | | [phone] | | | +--------+ + + + [...]
--- OUTSIDE RECORDS SUMMARY | ~2020-04-04 | XMS | Encounter Summary ---
Demographics + + + | Address | [address] | | | [place] [address] | + + + | Home Phone [...] + + | Author | [place] [employer]al Science [facility] | + + + | Organization | [facility] p[employer]waterworks Science [facility] [...] Team Providers + +------+ + | Care Rotor Blade Installer Name | Role | Phone | [...] | Prescription | | 2012 | | [place]/Ophthalmol | MD Perry | | | | | le[place] at [facility] [address] | | | | | | [address] Mailcode: | | | | | | CH11P [facility] | | | | | | Health and [facility], | | | | | | Building | | | | | | [place], [place] | | | | | | [address] | | | | | | [phone] | | | +--------+ + + + [...]
--- OUTSIDE RECORDS SUMMARY | ~2020-04-04 | XMS | Encounter Summary ---
Demographics + + + | Address | [address] | | | [place] [address] | + + + | Home Phone [...] Organization | [facility] | [...] Providers + +------+ + | Care Rn Traveling Name | Role | Phone | + +------+ + PCP | Unavailable | + +------+ + Encounter Details +--------+ + + + + | Date | Type | Department | Care Team | Description | +--------+ + + + + | 10/04/ | Hospital | [facility] | | | | 1991 | Encounter | [facility] | | | | | | HEALTH [address] | | | | | | [place], | | | | | | [place] [address] | | | | | | [phone] | | | +--------+ + + + [...]
--- OUTSIDE RECORDS SUMMARY | ~2020-04-04 | XMS | Encounter Summary ---
Demographics + + + | Address | [address] | | | [place] [address] | + + + | Home Phone [...] + + + | Author | [place] [employer] [facility] | + + + | Organization | [facility] [employer] [facility] | + [...] Team Providers + +------+ + | Care Cardiology Fellow Name | Role | Phone | [...] Cerebri; | | 2005 | Visit | [place] | | Common Migraine | | | | Neuro-Ophthalmology | | without Mention of | | | | [address] | | Intractable Migraine | | | | Mailcode: CEI | | | | | | [place] [address] | | | | | | [phone] | | | +--------+---------+ + + + [...] 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
--- OUTSIDE RECORDS SUMMARY | ~2020-04-04 | XMS | Encounter Summary ---
Demographics + + + | Address | [address] | | | [place] [address] | + + + | Home Phone [...] + + + | Author | [place] [employer] [facility] | + + + | Organization | Replaced By [facility] [employer] Science [facility] | + + [...] | | | Ave Mailcode: CH8N | [place], [place] | | | | | [facility] | [address] | | | | | and Healing, | [phone] | | | | | [facility] | | | | | | Floor [place], [place] | | | | | | [address] | | | | | | [phone] | | | +--------+---------+ + + + [...] wanted to have LP shunt instead of DRY ROASTER shunt because she d oes not weant [...]
--- OUTSIDE RECORDS SUMMARY | ~2020-04-04 | XMS | Encounter Summary ---
Demographics + + + | Address | [address] | | | [place] [address] | + + + | Home Phone [...] + + + | Author | [place] [employer] [facility] | + + + | Organization | [facility] [employer] Science [facility] [...] Team Providers + +------+ + | Care Hotel Baggage Handler Name | Role | Phone | [...] [address] | | | | | | [address] | Ave | | | | | | [address] | [place], [place] | | | | | | [place], | [address] | | | | | | [place] [address] | Phone: | | | | | | Phone: | [phone] | | | | | | [phone] | Fax: | | | | | | Fax: | [phone] | | | | | | [phone] | | +--------+ + + + + [...] | | | Ave Mailcode: CH8N | [place], [place] | | | | | [facility] | [address] | | | | | and Healing, | [phone] | | | | | [facility] | | | | | | Floor [place], [place] | | | | | | [address] | | | | | | [phone] | | | +--------+---------+ + + + [...] soon. I spent more than 15 minutes [id number] with the patient of which greater than 50% was sp ent counseling the patient regarding the shunt removal, indications and venous sinus stent a ngioplasty. Since her shunt is brent effective now she will need narcotics for headache and he r PCP should manage that. CASIMIRO PAYTON MD NEUROSURGERY [address] Mailcode: Ch8n [facility], 8th [facility] [address] documented in this encou nter Plan of Treatment Not on filedocumented as of this encounter Visit Diagnoses + + | Diagnosis | + + | Pseudotumor cerebri - Primary Benign intracranial hypertension | + + documented in this encounter
--- OUTSIDE RECORDS SUMMARY | ~2020-04-04 | XMS | Encounter Summary ---
Demographics + + + | Address | [address] | | | [place] [address] | + + + | Home Phone [...] + + + | Author | [place] [employer] Science [facility] | + + + | Organization | [facility] [employer] [facility] [...] Providers + +------+ + | Care Chemist Water Purification Name | Role | Phone | + +------+ + | Brenden Benaivdes MD | PCP | | + +------+ + Encounter Details +--------+ + + + + | Date | Type | Department | Care Team | Description | +--------+ + + + + | 02/23/ | Telephone | [facility] | Brad Currie MD | | | 2006 | | [place] | | | | | | Neuro-Ophthalmology | | | | | | [address] [facility] | | | | | | Mailcode: PATTI | | | | | | [place] [address] | | | | | | [phone] | | | +--------+ + + + [...]
--- OUTSIDE RECORDS SUMMARY | ~2020-04-04 | XMS | Encounter Summary ---
Demographics + + + | Address | [address] | | | [place] [address] | + + + | Home Phone [...] + + + | Author | [place] [employer] [facility] | + + + | Organization | [facility] [employer] Science [facility] [...] Team Providers + +------+ + | Care Powerhouse Mechanic Supervisor Name | Role | Phone [...] | Visit | Medicine Clinic at | JBOSS DEVELOPER [address] [facility] | Pre-Operative | | | | [facility] 4th Floor [address] | Examination (Primary | | | | [address] | [place], [place] | Dx); Pseudotumor | | | | Mailcode: CH4S | [address] | Cerebri; Encounter | | | | [facility] | [phone] | for Long-Term | | | | and Healing, | | (Current) Use of | | | | Building 1,4th Floor | | Anticoagulants | | | | [place], [place] | | | | | | [address] | | | | | | [phone] | | | +--------+---------+ + + + [...] Scanned [facility]. [facility],[address] [place] [address] documented in this encou nter Plan [...] | + + + + + | [facility] DEPARTMENT OF | [address] [facility] | [place] [address] | | | PATHOLOGY | [address] | | | + + + + + | [facility] DEPARTMENT OF | [address] [facility] | [place] [address] | | | PATHOLOGY | [address] [...] + + + | [facility] | [address] | [place] [address] | | | PATHOLOGY | [address] | | | + + + + + | [facility] | [address] | [place] [address] | | | PATHOLOGY | [address] [...] + + + | [facility] | [address] [facility] | [place] [address] | | | PATHOLOGY | [address] | | | + + + + + | [facility] | [address] [facility] | [place] [address] | | | PATHOLOGY | [address] [...] + + + | [facility] | [address] [facility] | [place] [address] | | | PATHOLOGY | [address] | | | + + + + + | [facility] | [address] [place] [address] | [place] [address] | | | PATHOLOGY | [address] [...] Performed At | + + + | [id number] Estimated GFR > 60 mL/min/1.73 sq m if non- | [facility] | | Singaporean [id number] Estimated GFR > 60 mL/min/1.73 sq m if | DEPARTMENT OF | | [place]an GFR is estimated using the MDRD equation [...] | + + + + + | [facility] DEPARTMENT OF | [address] | [place] [address] | | | PATHOLOGY | [address] | | | + + + + + | [facility] DEPARTMENT OF | [address] | [place] [address] | | | PATHOLOGY | [address] [...] | + + + + + | [facility] DEPARTMENT OF | [address] | [place] [address] | | | PATHOLOGY | [address] | | | + + + + + | [facility] OF | [address] | [place] [address] | | | PATHOLOGY | [address] | | | + + + + + documented in this encounter Visit Diagnoses + + | Diagnosis | + + | Other specified pre-operative examination - Primary | + + | Pseudotumor cerebri Benign intracranial hypertension | + + | oil heaterman (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
--- OUTSIDE RECORDS SUMMARY | ~2020-04-04 | XMS | Encounter Summary ---
Demographics + + + | Address | [address] | | | [place] [address] | + + + | Home Phone [...] | Located Within [facility] [...] Providers + +------+ + | Care Transportation Driver Name | Role | Phone | + +------+ + PCP | Unavailable | + +------+ + Encounter Details +--------+ + + + + | Date | Type | Department | Care Team | Description | +--------+ + + + + | 01/01/ | Hospital | [facility] | [place], | | | 2009 | Encounter | MED CTR EMERGENCY | Brad Yu MD [address] | | | | | [place] [address] | [facility] | | | | | [place] | [place] [address] | | | | | [address] | [phone] | | | | | [phone] | | | +--------+ + + + [...]
--- OUTSIDE RECORDS SUMMARY | ~2020-04-04 | XMS | Encounter Summary ---
Demographics + + + | Address | [address] | | | [place] [address] | + + + | Home Phone [...] + + + | Author | [place] [employer] [facility] | + + + | Organization | [facility] [employer] [facility] | + [...] Team Providers + +------+ + | Care Matching Machine Operator Name | Role | Phone [...] | | | | | | | [facility] | | | | | | | Hospital | | | | | | | [place], [place] | | | | | | | [address] | | | | | | | Phone: | | | | | | | [phone] | | | | | | | Fax: | | | | | | | [phone] | +--------+--------+ + + + + Encounter Details +--------+ + + + + | Date | Type | Department | Care Team | Description | +--------+ + + + + | 05/07/ | Hospital | [facility] [address] | [place], | | | 2007 | Encounter | [address] | MD [place] | | | | | [facility] [facility] | MD Holden,PhD | | | | | [place] | | | | | | [address] | | | | | | [phone] | | | +--------+ + + + [...] Dennis, | | | | | | M.D.Directory Clerk surgeon: . | | | | | [...] | | | | | cervical region, GUINEAN and | | | | | | [...] | | | | | | vein with6-Emirati Envoy | | | | | | [...] artery. | | | | | | [id number] Berenstein | | | | | | [...] | | | | | with a 6-Emirati Envoy | | | | | | [...]
--- OUTSIDE RECORDS SUMMARY | ~2020-04-04 | XMS | Encounter Summary ---
Demographics + + + | Address | [address] | | | [place] [address] | + + + | Home Phone [...] + + + | Author | [place] [employer] Science [facility] | + + + | Organization | [facility] [employer] Science [facility] [...] Providers + +------+ + | Care Communications Specialist Name | Role | Phone | [...] | 2008 | | [facility] [address] | [address] | | | | | Ave Mailcode: CH8N | [place], [place] | | | | | [facility] | [address] | | | | | and Healing, | [phone] | | | | | [facility] | | | | | | Floor [place], [place] | | | | | | [address] | | | | | | [phone] | | | +--------+ + + + [...]
--- OUTSIDE RECORDS SUMMARY | ~2020-04-04 | XMS | Encounter Summary ---
Demographics + + + | Address | [address] | | | [place] [address] | + + + | Home Phone [...] + + + | Author | [place] [employer] [facility] | + + + | Organization | [facility] Ferment[employer] Science [facility] | + + + | Address | Unknown | + + + | Phone | Unavailable | + + + Support + + +---------+ + | Name | Relationship | Address | Phone | + + +---------+ + | Ruby Au | ECON | Unknown | | + + +---------+ + Care Team Providers + +------+ + | Care Projects Manager Name | Role | Phone | [...] Care Coordination | | 2018 | | [place] | MD [address] | | | | | Neuro-Ophthalmology | [facility] [place] | | | | | at [facility] [address] | [address] | | | | | Ave Mailcode: CH3G | [phone] | | | | | [facility] | | | | | | and Healing, | | | | | | Building | | | | | | Floor [place], [place] | | | | | | [address] | | | | | | [phone] | | | +--------+ + + + [...]
--- OUTSIDE RECORDS SUMMARY | ~2020-04-04 | XMS | Encounter Summary ---
Demographics + + + | Address | [address] | | | [place] [address] | + + + | Home Phone [...] + | Organization | [facility] | | [...] Team Providers + +------+ + | Care Apricot Washer Name | Role | Phone | + +------+ + PCP | Unavailable | + +------+ + Encounter Details +--------+ + + + + | Date | Type | Department | Care Team | Description | +--------+ + + + + | 07/30/ | Hospital | [facility] | | | | 2008 - | Encounter | MED CTR MED ONC | | | | | | [address] | | | | 08/02/ | | [place] [address] | | | | 2008 | | [phone] | | | +--------+ + + + [...]
--- OUTSIDE RECORDS SUMMARY | ~2020-04-04 | XMS | Encounter Summary ---
Demographics + + + | Address | [address] | | | [place] [address] | + + + | Home Phone [...] + + | Author | [place] [employer] [facility] | + + + | Organization | [facility] [email or web address] [facility] | [...] + +------+ + | Care Quality Control Technician Name | Role | [...] | | | CH[facility]N [facility] | [place], [place] | | | | | Health and Healing, | [address] | | | | | Building 1, 8th | | | | | | Floor [place], [place] | | | | | | [address] | | | | | | [phone] | | | +--------+ + + + [...]
--- OUTSIDE RECORDS SUMMARY | ~2020-04-04 | XMS | Encounter Summary ---
Demographics + + + | Address | [address] | | | [place] [address] | + + + | Home Phone [...] + + + | Author | [place] [employer] [facility] | + + + | Organization | [facility] [facility] | [...] + +------+ + | Care Green Chain Off Bearer Name | Role | Phone | + [...] | | Ave Mailcode: CH8N | [place], [place] | | | | | [facility] | [address] | | | | | and Healing, | [phone] | | | | | [facility] | | | | | | Floor [place], [place] | | | | | | [address] | | | | | | [phone] | | | +--------+--------+ + + + [...]
--- OUTSIDE RECORDS SUMMARY | ~2020-04-04 | XMS | Encounter Summary ---
Demographics + + + | Address | [address] | | | [place] [address] | + + + | Home Phone [...] | Organization | [facility] | | [...] Providers + +------+ + | Care Research Greenhouse Supervisor Name | Role | Phone | + +------+ + PCP | Unavailable | + +------+ + Encounter Details +--------+ + + + + | Date | Type | Department | Care Team | Description | +--------+ + + + + | 11/22/ | Hospital | [facility] | | | | 1995 | Encounter | MED CTR EMERGENCY | | | | | | CENTER [address] | | | | | | [place] | | | | | | [address] | | | | | | [phone] | | | +--------+ + + + [...]
--- OUTSIDE RECORDS SUMMARY | ~2020-04-04 | XMS | Encounter Summary ---
Demographics + + + | Address | [address] | | | [place] [address] | + + + | Home Phone [...] + + + | Author | [place] [employer] [facility] | + + + | Organization | [facility] [employer] [facility] | + [...] Providers + +------+ + | Care Supervisor Boarding Name | Role | Phone | + +------+ + | Brenden Benavides MD | PCP | | + +------+ + Encounter Details +--------+ + + + + | Date | Type | Department | Care Team | Description | +--------+ + + + + | 02/22/ | Telephone | [facility] | Hay Hughes MD [address] | | | 2006 | | [place] | [address] | | | | | Oculoplastics at | [place], [place] | | | | | [address] | [address] | | | | | [address] | [phone] | | | | | [facility] [place] | | | | | | [address] | | | | | | [place] [address] | | | | | | [phone] | | | +--------+ + + + [...]
--- OUTSIDE RECORDS SUMMARY | ~2020-04-04 | XMS | Encounter Summary ---
Demographics + + + | Address | [address] | | | [place] [address] | + + + | Home Phone [...] + + | Author | [place] [employer] Science [facility] | + + + | Organization | [facility] [employer] Science [facility] [...] Providers + +------+ + | Care Green Lumber Grader Name | Role | Phone | [...] Cerebri | | 2006 | Visit | [place] | | | | | | Photography at | | | | | | [address] | | | | | | [address] | | | | | | Eye [place], 4th | | | | | | floor [place], [place] | | | | | | [address] | | | +--------+---------+ + + + [...] PM DINOAnnabella Au was seen in the [facility] [place] Photography/Ultrasound Department today, 11/30/2006, for ultrasound OU [...]
--- OUTSIDE RECORDS SUMMARY | ~2020-04-04 | XMS | Encounter Summary ---
Demographics + + + | Address | [address] | | | [place] [address] | + + + | Home Phone [...] | Organization | [facility] | | [...] + + | 10/29/ | Hospital | [facility] | | | | 1991 | Encounter | MED CTR EMERGENCY | | | | | | CENTER [address] | | | | | | [place] | | | | | | [address] | | | | | | [phone] | | | +--------+ + + + [...]
--- OUTSIDE RECORDS SUMMARY | ~2020-04-04 | XMS | Encounter Summary ---
Demographics + + + | Address | [address] | | | [place] [address] | + + + | Home Phone [...] + + + | Author | [place] [employer] Science [facility] | + + + | Organization | [facility] Chujian Science [facility] [...] Providers + +------+ + | Care Captain Fire Prevention Bureau Name | Role | Phone | + +------+ + | Pedro Luis Sams MD | PCP | | + +------+ + Encounter Details +--------+ + + + + | Date | Type | Department | Care Team | Description | +--------+ + + + + | 08/31/ | Telephone | [facility] | Leticia Pitts MD | | | 2010 | | [place]/Ophthalmol | | | | | | leon at [facility] [address] | | | | | | [address] Mailcode: | | | | | | CH11P Center for | | | | | | Health and Healing, | | | | | | [facility] | | | | | | Floor [place], [place] | | | | | | [address] | | | | | | [phone] | | | +--------+ + + + [...]
--- OUTSIDE RECORDS SUMMARY | ~2020-04-04 | XMS | Encounter Summary ---
Demographics + + + | Address | [address] | | | [place] [address] | + + + | Home Phone [...] + | Organization | [facility] [...] Providers + +------+ + | Care Aircraft Log Clerk Name | Role | Phone | + +------+ + PCP | Unavailable | + +------+ + Encounter Details +--------+ + + + + | Date | Type | Department | Care Team | Description | +--------+ + + + + | 10/27/ | Hospital | [facility] | | | | 1990 | Encounter | MED CTR EMERGENCY | | | | | | CENTER [address] | | | | | | [place] | | | | | | [address] | | | | | | [phone] | | | +--------+ + + + [...]
--- OUTSIDE RECORDS SUMMARY | ~2020-04-04 | XMS | Encounter Summary ---
Demographics + + + | Address | [address] | | | [place] [address] | + + + | Home Phone [...] + + + | Author | [place] [employer] [facility] | + + + | Organization | [facility] [employer] [facility] | + + [...] Providers + +------+ + | Care Industrial Relations Specialist Name | Role | Phone [...] Letter Encounter | | 2008 | | [facility] | [address] | | | | | and Healing [address] | [place], [place] | | | | | [address] Mailcode: | [address] | | | | | CH8N [facility] | [phone] | | | | | Health and Healing, | | | | | | Building 1, | | | | | | Floor [place], [place] | | | | | | [address] | | | | | | [phone] | | | +--------+ + + + [...]
--- OUTSIDE RECORDS SUMMARY | ~2020-04-04 | XMS | Encounter Summary ---
Demographics + + + | Address | [address] | | | [place] [address] | + + + | Home Phone [...] + + + | Author | [place] [employer] Science [facility] | + + + | Organization | [facility] [employer] Science [facility] | + + + | Address | Unknown | + + + | Phone | Unavailable | + + + Support + + +---------+ + | Name | Relationship | Address | Phone | + + +---------+ + | Ruby Au | ECON | Unknown | | + + +---------+ + Care Team Providers + +------+ + | Care Bulldozer/Loader/Compactor/Scraper Name | Role | Phone | + [...] [address] | | | | | | [facility] | | | | | | [place], [place] | | | | | | [address] | | | | | | [phone] | | | +--------+ + + + [...]
--- OUTSIDE RECORDS SUMMARY | ~2020-04-04 | XMS | Encounter Summary ---
Demographics + + + | Address | [address] | | | [place] [address] | + + + | Home Phone [...] + + + | Author | [place] [employer] [facility] | + + + | Organization | [facility] [employer] [facility] | + + + | Address | Unknown | + + + | Phone | Unavailable | + + + Support + + +---------+ + | Name | Relationship | Address | Phone | + + +---------+ + | Ruby Au | ECON | Unknown | | + + +---------+ + Care Team Providers + +------+ + | Care Mild Disabilities Teacher Name | Role | Phone | [...] Cerebri | | 2006 | Visit | [place] | [address] | (Primary Dx) | | | | Oculoplastics at | [place], [place] | | | | | [address] | [address] | | | | | [address] | [phone] | | | | | Eye [place] | | | | | | [facility], [address] [place] [address] | | | | | | [place] [address] | | | | | | [phone] | | | +--------+---------+ + + + [...]
--- OUTSIDE RECORDS SUMMARY | ~2020-04-04 | XMS | Encounter Summary ---
Demographics + + + | Address | [address] | | | [place] [address] | + + + | Home Phone [...] + + | Author | [place] [employer] [facility] | + + + | Organization | [facility] [employer] [facility] [...] Team Providers + +------+ + | Care Ui Developer With Angular Js Name | Role | Phone | + [...] | | [place] Mailcode:OP14B | [place], | | | | | Lund S*Bio | [place] [address] | | | | | [place], [place] | | | | | | [address] | | | | | | [phone] | | | +--------+ + + + [...]
--- OUTSIDE RECORDS SUMMARY | ~2020-04-04 | XMS | Encounter Summary ---
Demographics + + + | Address | [address] | | | [place] [address] | + + + | Home Phone [...] Organization | [facility] | | | and [...] Team Providers + +------+ + | Care Sealer Sander Name | Role | Phone | + +------+ + PCP | Unavailable | + +------+ + Encounter Details +--------+ + + + + | Date | Type | Department | Care Team | Description | +--------+ + + + + | 06/20/ | Hospital | [facility] | Yovanny Suazo, | | | 1991 | Encounter | MED CTR WOMENS | MD [address] | | | | | [facility] [address] | [address] | | | | | [place], | [place] [address] | | | | | [place] [address] | [phone] | | | | | [phone] | | | +--------+ + + + [...]
--- OUTSIDE RECORDS SUMMARY | ~2020-04-04 | XMS | Encounter Summary ---
Demographics + + + | Address | [address] | | | [place] [address] | + + + | Home Phone [...] + | Organization | [facility] | [...] Team Providers + +------+ + | Care Python Developer Name | Role | Phone | + +------+ + PCP | Unavailable | + +------+ + Encounter Details +--------+ + + + + | Date | Type | Department | Care Team | Description | +--------+ + + + + | 10/12/ | Hospital | [facility] | | | | 1991 | Encounter | [facility] | | | | | | HEALTH SV [address] | | | | | | [place], | | | | | | [place] [address] | | | | | | [phone] | | | +--------+ + + + [...]
--- OUTSIDE RECORDS SUMMARY | ~2020-04-04 | XMS | Encounter Summary ---
Demographics + + + | Address | [address] | | | [place] [address] | + + + | Home Phone [...] + + + | Author | [place] [employer] [facility] | + + + | Organization | [facility] [employer] [facility] [...] Providers + +------+ + | Care School Custodian Name | Role | Phone | + [...] Papilledema | | 2006 | Visit | [place] | [address] | Associated with | | | | Oculoplastics at | [place], [place] | Increased | | | | [place] [address] [address] | [address] | Intracranial | | | | [address] | [phone] | Pressure; Enlarged | | | | [facility] [place] | | Blind Spot; | | | | Building, 5th floor | | Bilateral Headaches | | | | [place] [address] | | | | | | [phone] | | | +--------+---------+ + + + [...] Eye meds: Diamox, Oxycontin, Robaxin. Visual Acuity: [facility] RE 20/20-1 LE 20/25-2 NI Pupil: [...]
--- OUTSIDE RECORDS SUMMARY | ~2020-04-04 | XMS | Encounter Summary ---
Demographics + + + | Address | [address] | | | [place] [address] | + + + | Home Phone [...] | Organization | [facility] [...] Team Providers + +------+ + | Care Turkey Boner Name | Role | Phone | + +------+ + PCP | Unavailable | + +------+ + Encounter Details +--------+ + + + + | Date | Type | Department | Care Team | Description | +--------+ + + + + | 10/12/ | Hospital | [facility] | | | | 1991 | Encounter | MED [facility] | | | | | | HEALTH SV [address] | | | | | | [place], | | | | | | [place] [address] | | | | | | [phone] | | | +--------+ + + + [...]
--- OUTSIDE RECORDS SUMMARY | ~2020-04-04 | XMS | Encounter Summary ---
Demographics + + + | Address | [address] | | | [place] [address] | + + + | Home Phone [...] + + | Author | [place] [employer] [facility] | + + + | Organization | [facility] App[employer] [facility] | + [...] Providers + +------+ + | Care Child Protective Investigator Name | Role | Phone | + +------+ + | Pedro Luis Sams MD | PCP | | + +------+ + Encounter Details +--------+ + + + + | Date | Type | Department | Care Team | Description | +--------+ + + + + | 10/19/ | Telephone | [facility] | Funmilayo Osorio MD | | | 2010 | | [place]/Ophthalmol | [address] | | | | | leon at [facility] [address] | [place], [place] | | | | | [address] Mailcode: | [address] | | | | | CH11P [facility] | [phone] | | | | | Health and Healing, | | | | | | [facility] | | | | | | [place], [place] | | | | | | [address] | | | | | | [phone] | | | +--------+ + + + [...]
--- OUTSIDE RECORDS SUMMARY | ~2020-04-04 | XMS | Encounter Summary ---
Demographics + + + | Address | [address] | | | [place] [address] | + + + | Home Phone [...] Organization | [facility] | | [...] + +------+ + | Care Behavioral Health Associate Name | Role | Phone | + +------+ + PCP | Unavailable | + +------+ + Encounter Details +--------+ + + + + | Date | Type | Department | Care Team | Description | +--------+ + + + + | 05/18/ | Hospital | [facility] | | | | 1991 | Encounter | [facility] | | | | | | HEALTH SV [address] | | | | | | [place], | | | | | | [place] [address] | | | | | | [phone] | | | +--------+ + + + [...]
--- OUTSIDE RECORDS SUMMARY | ~2020-04-04 | XMS | Encounter Summary ---
Demographics + + + | Address | [address] | | | [place] [address] | + + + | Home Phone [...] + + | Author | [place] [employer] Science [facility] | + + + | Organization | [facility] [employer] [facility] | + [...] Providers + +------+ + | Care Chief Strategy Officer Name | Role | Phone | [...] | | [place] Mailcode:OP14B | [place], | | | | | [facility] | [place] [address] | | | | | [place], [place] | | | | | | [address] | | | | | | [phone] | | | +--------+ + + + [...]
--- OUTSIDE RECORDS SUMMARY | ~2020-04-04 | XMS | Encounter Summary ---
Demographics + + + | Address | [address] | | | [place] [address] | + + + | Home Phone [...] + + + | Author | [place] [employer] [facility] | + + + | Organization | [facility] [employer] Science [facility] | + [...] Team Providers + +------+ + | Care Window Decorator Name | Role | Phone | + +------+ + | Brenden Benavides MD | PCP | | + +------+ + Encounter Details +--------+ + + + + | Date | Type | Department | Care Team | Description | +--------+ + + + + | 02/23/ | Telephone | [facility] | Brad Currie MD | | | 2006 | | [place] | | | | | | Neuro-Ophthalmology | | | | | | [address] [facility] | | | | | | Mailcode: PATTI | | | | | | [place] [address] | | | | | | [phone] | | | +--------+ + + + [...]
--- OUTSIDE RECORDS SUMMARY | ~2020-04-04 | XMS | Encounter Summary ---
Demographics + + + | Address | [address] | | | [place] [address] | + + + | Home Phone [...] | Organization | [facility] | [...] Providers + +------+ + | Care Film Librarian Name | Role | Phone | + +------+ + PCP | Unavailable | + +------+ + Encounter Details +--------+ + + + + | Date | Type | Department | Care Team | Description | +--------+ + + + + | 06/20/ | Hospital | [facility] | Yovanny Suazo, | | | 1991 | Encounter | MED CTR W[facility]ENS | MD [address] | | | | | HEALTH [facility] [address] | [address] | | | | | [place], [place] [address] | | | | | [place] [address] | [phone] | | | | | [phone] | | | +--------+ + + + [...]
--- OUTSIDE RECORDS SUMMARY | ~2020-04-04 | XMS | Encounter Summary ---
Demographics + + + | Address | [address] | | | [place] [address] | + + + | Home Phone [...] + + | Author | [place] [employer]en [employer] Science [facility] | + + + | Organization | [facility] [employer] [facility] | + [...] Providers + +------+ + | Care Medical Claims Analyst Name | Role | Phone | [...] | | | REFERRAL TO | | [place], [place] | | | | | NEUROINTERVE | | [address] | | | | | NTIONAL | | Phone: | | | | | RADIOLOGY | | [phone] | | | | | PRACTICE | | Fax: | | | | | | | [phone] | +--------+--------+ + + + + Reason [...] Dx) | | | | Mailcode:OP14B | [place], [place] | | | | | Outpatient Clinic | [address] | | | | | Building [place], | [phone] | | | | | [place] [address] | | | | | | [phone] | | | +--------+---------+ + + + [...] resident s note. CASIMIRO PAYTON MD NEUROSURGERY [facility] [place] [address] Pascual Ballard - 12:00 PM [...] spots" and "tunnel vision." Last saw an lap polisher in [facility] 2 months ago. Reportedl y, this showed [...] Patient was also given a prescription for [place] for CAPONE until she establishs care with [...]
--- OUTSIDE RECORDS SUMMARY | ~2020-04-04 | XMS | Encounter Summary ---
Demographics + + + | Address | [address] | | | [place] [address] | + + + | Home Phone [...] + + + | Author | [place] [employer] Science [facility] | + + + | Organization | [facility] [employer] Science [facility] | [...] Providers + +------+ + | Care Parking Patroller Name | Role | Phone | + [...] | | | Ave Mailcode: CH8N | [place], [place] | | | | | [facility] | [address] | | | | | and Healing, | [phone] | | | | | [facility] | | | | | | Floor [place], [place] | | | | | | [address] | | | | | | [phone] | | | +--------+ + + + [...]
--- OUTSIDE RECORDS SUMMARY | ~2020-04-04 | XMS | Encounter Summary ---
Demographics + + + | Address | [address] | | | [place] [address] | + + + | Home Phone [...] Organization | [facility] [...] Team Providers + +------+ + | Care Seating Captain Name | Role | Phone | + +------+ + PCP | Unavailable | + +------+ + Encounter Details +--------+ + + + + | Date | Type | Department | Care Team | Description | +--------+ + + + + | 01/27/ | Hospital | [facility] | Marine Oden | | | 2011 - | Encounter | MED CTR EMERGENCY | DO Gaurang Drake | | | | | [place] | [place], [place] | | | 01/28/ | | [place], [place] | [address] | | | 2011 | | [address] | | | | | | [phone] | | | +--------+ + + + [...] Performed At | + + + | [facility] Diagnostic Imaging Department | [facility] | | [address] [facility] | [facility] | | UNENHANCED HEAD CT, 01/28/2012, | [...] COMMUNICATED TO THE ER STAFF BY THE [facility] RADIOLOG IST ON | | | 01/29/2012 AT 0003 HOURS. Dictated Date/Time: 01/29/2012 09:41 | | | Transcribed Date/Time: 01/29/2012 09:47 Shingle Bolt Cutter: | | | <Electronically Signed by Ivan Smalls MD> 01/29/12 1606 | | + + + + + | Procedure Note | + + | Neal, Rad Conversion - 01/04/2014 4:51 PM [facility] | | Diagnostic Imaging Department [address] [place] | | UNENHANCED HEAD CT, 01/28/2012, 2342 [...] 09:41 | |Transcribed Date/Time: 01/29/2012 09:47 | |Shingle Bolt Cutter: | |<Electronically Signed by Ivan Smalls MD> [...]
--- OUTSIDE RECORDS SUMMARY | ~2020-04-04 | XMS | Encounter Summary ---
Demographics + + + | Address | [address] | | | [place] [address] | + + + | Home Phone [...] + + + | Author | [place] [employer] Science [facility] | + + + | Organization | [facility] [employer] [facility] | + [...] Providers + +------+ + | Care Clay Pigeon Setter Name | Role | Phone | [...] | | | Ave Mailcode: CH8N | [place], [place] | | | | | [facility] | [address] | | | | | and Healing, | [phone] | | | | | [facility] | | | | | | Floor [place], [place] | | | | | | [address] | | | | | | [phone] | | | +--------+ + + + [...]
--- OUTSIDE RECORDS SUMMARY | ~2020-04-04 | XMS | Encounter Summary ---
Demographics + + + | Address | [address] | | | [place] [address] | + + + | Home Phone [...] | Organization | [facility] | [...] Team Providers + +------+ + | Care Women'S Garment Fitter Name | Role | Phone | + +------+ + PCP | Unavailable | + +------+ + Encounter Details +--------+ + + + + | Date | Type | Department | Care Team | Description | +--------+ + + + + | 09/20/ | Hospital | [facility] | | | | 1991 | Encounter | [facility] | | | | | | HEALTH SV [address] | | | | | | [place], | | | | | | [place] [address] | | | | | | [phone] | | | +--------+ + + + [...]
--- OUTSIDE RECORDS SUMMARY | ~2020-04-04 | XMS | Encounter Summary ---
Demographics + + + | Address | [address] | | | [place] [address] | + + + | Home Phone [...] | Organization | [facility] | | | [...] Team Providers + +------+ + | Care Earth Mover Name | Role | Phone | + +------+ + PCP | Unavailable | + +------+ + Encounter Details +--------+ + + + + | Date | Type | Department | Care Team | Description | +--------+ + + + + | 10/04/ | Hospital | [facility] | | | | [facility] | Encounter | [facility] | | | | | | HEALTH SV [address] | | | | | | [place], | | | | | | [place] [address] | | | | | | [phone] | | | +--------+ + + + [...]
--- OUTSIDE RECORDS SUMMARY | ~2020-04-04 | XMS | Encounter Summary ---
Demographics + + + | Address | [address] | | | [place] [address] | + + + | Home Phone [...] Organization | [facility] | [...] Team Providers + +------+ + | Care Machinery Dismantler Name | Role | Phone | + +------+ + PCP | Unavailable | + +------+ + Encounter Details +--------+ + + + + | Date | Type | Department | Care Team | Description | +--------+ + + + + | 06/19/ | Hospital | [facility] | | | | 1991 | Encounter | MED [facility] | | | | | | HEALTH SV [address] | | | | | | [place], | | | | | | [place] [address] | | | | | | [phone] | | | +--------+ + + + [...]
--- OUTSIDE RECORDS SUMMARY | ~2020-04-04 | XMS | Encounter Summary ---
Demographics + + + | Address | [address] | | | [place] [address] | + + + | Home Phone [...] Organization | [facility] | | [...] Team Providers + +------+ + | Care Stallion Keeper Name | Role | Phone | + +------+ + PCP | Unavailable | + +------+ + Encounter Details +--------+ + + + + | Date | Type | Department | Care Team | Description | +--------+ + + + + | 10/14/ | Hospital | [facility] | | | | 1991 | Encounter | [facility] | | | | | | HEALTH SV [address] | | | | | | [place], | | | | | | [place] [address] | | | | | | [phone] | | | +--------+ + + + [...]
--- OUTSIDE RECORDS SUMMARY | ~2020-04-04 | XMS | Encounter Summary ---
Demographics + + + | Address | [address] | | | [place] [address] | + + + | Home Phone [...] + + + | Author | [place] [employer] [facility] | + + + | Organization | [facility] | + + [...] Providers + +------+ + | Care Cutter Banana Room Name | Role | Phone | + [...] + + | 06/24/ | Emergency | [facility] Emergency | | | | 2010 | | Department [address] | | | | | | [address] | | | | | | [facility] | | | | | | [place], [place] | | | | | | [address] | | | | | | [phone] | | | +--------+ + + + [...]
--- OUTSIDE RECORDS SUMMARY | ~2020-04-04 | XMS | Encounter Summary ---
Demographics + + + | Address | [address] | | | [place] [address] | + + + | Home Phone [...] | Organization | [facility] | [...] Team Providers + +------+ + | Care Clamshell Engineer Name | Role | Phone | + +------+ + PCP | Unavailable | + +------+ + Encounter Details +--------+ + + + + | Date | Type | Department | Care Team | Description | +--------+ + + + + | 05/25/ | Hospital | [facility] | | | | 1991 | Encounter | [facility] | | | | | | HEALTH SV [address] | | | | | | [place], | | | | | | [place] [address] | | | | | | [phone] | | | +--------+ + + + [...]
--- OUTSIDE RECORDS SUMMARY | ~2020-04-04 | XMS | Encounter Summary ---
Demographics + + + | Address | [address] | | | [place] [address] | + + + | Home Phone [...] + + + | Author | [place] [employer] [place] [employer] Science [facility] | + + + | Organization | [facility] [employer] [facility] | + [...] Team Providers + +------+ + | Care Stummel Selector Name | Role | Phone | + [...] [address] | | | | | | [place] | Ave | | | | | | [address] | [place], [place] | | | | | | [place], | [address] | | | | | | [place] [address] | Phone: | | | | | | Phone: | [phone] | | | | | | [phone] | Fax: | | | | | | Fax: | [phone] | | | | | | [phone] | | +--------+ + + + + [...] | | | Ave Mailcode: CH8N | [place], [place] | | | | | [facility] | [address] | | | | | and Healing, | [phone] | | | | | [facility] | | | | | | Floor [place], [place] | | | | | | [address] | | | | | | [phone] | | | +--------+---------+ + + + [...] soon. I spent more than 15 minutes [id number] with the patient of which greater than 50% was sp ent counseling the patient regarding the shunt removal, indications and venous sinus stent a ngioplasty. Since her shunt is brent effective now she will need narcotics for headache and he r PCP should manage that. CASIMIRO PAYTON MD NEUROSURGERY [address] Mailcode: Ch8n [facility], [address]th [facility] [address] documented in this encou nter Plan of Treatment Not on filedocumented as of this encounter Visit Diagnoses + + | Diagnosis | + + | Pseudotumor cerebri - Primary Benign intracranial hypertension | + + documented in this encounter
--- OUTSIDE RECORDS SUMMARY | ~2020-04-04 | XMS | Encounter Summary ---
Demographics + + + | Address | [address] | | | [place] [address] | + + + | Home Phone [...] | Organization | [facility] | [...] Team Providers + +------+ + | Care Slp Teacher Name | Role | Phone | + +------+ + PCP | Unavailable | + +------+ + Encounter Details +--------+ + + + + | Date | Type | Department | Care Team | Description | +--------+ + + + + | 10/25/ | Hospital | [facility] | | | | 1991 | Encounter | MED CTR EMERGENCY | | | | | | CENTER [address] | | | | | | [place] | | | | | | [address] | | | | | | [phone] | | | +--------+ + + + [...]
--- OUTSIDE RECORDS SUMMARY | ~2020-04-04 | XMS | Encounter Summary ---
Demographics + + + | Address | [address] | | | [place] [address] | + + + | Home Phone [...] + + | Author | [place] [employer] Science [facility] | + + + | Organization | [facility] [employer] Science [facility] [...] Providers + +------+ + | Care Lead Custodian Name | Role | Phone | [...] CH8N | | | | | | [facility] | | | | | | and Healing, | | | | | | Building [address], [address]th | | | | | | Floor [place], [place] | | | | | | [address] | | | | | | [phone] | | | +--------+ + + + [...]
--- OUTSIDE RECORDS SUMMARY | ~2020-04-04 | XMS | Encounter Summary ---
Demographics + + + | Address | [address] | | | [place] [address] | + + + | Home Phone [...] Organization | [facility] | | [...] Team Providers + +------+ + | Care Landscape Architecture Professor Name | Role | Phone | + +------+ + PCP | Unavailable | + +------+ + Encounter Details +--------+ + + + + | Date | Type | Department | Care Team | Description | +--------+ + + + + | 08/21/ | Hospital | [facility] | | | | 1991 | Encounter | MED CTR EMERGENCY | | | | | | CENTER [address] | | | | | | [place] | | | | | | [address] | | | | | | [phone] | | | +--------+ + + + [...]
--- OUTSIDE RECORDS SUMMARY | ~2020-04-04 | XMS | Encounter Summary ---
Demographics + + + | Address | [address] | | | [place] [address] | + + + | Home Phone [...] Organization | [facility] | | | [...] Providers + +------+ + | Care Railroad Engineer Name | Role | Phone | + +------+ + PCP | Unavailable | + +------+ + Encounter Details +--------+ + + + + | Date | Type | Department | Care Team | Description | +--------+ + + + + | 09/30/ | Hospital | [facility] | | | | 1990 | Encounter | MED CTR EMERGENCY | | | | | | CENTER [address] | | | | | | [place] | | | | | | [address] | | | | | | [phone] | | | +--------+ + + + [...]
--- OUTSIDE RECORDS SUMMARY | ~2020-04-04 | XMS | Encounter Summary ---
Demographics + + + | Address | [address] | | | [place] [address] | + + + | Home Phone [...] + + + | Author | [place] [employer] Science [facility] | + + + | Organization | [facility] [employer] [facility] [...] Providers + +------+ + | Care Painter Foreman Name | Role | Phone | [...] [facility] [id number] | [place] [address] | | | | | [place] Mailcode: CH8N | [address] [facility] | | | | | [facility] | Rd [place], [place] | | | | | and Healing, | [address] | | | | | Building | [phone] | | | | | Floor [place], [place] | | | | | | [address] | | | | | | [phone] | | | +--------+ + + + [...]
--- OUTSIDE RECORDS SUMMARY | ~2020-04-04 | XMS | Encounter Summary ---
Demographics + + + | Address | [address] | | | [place] [address] | + + + | Home Phone [...] + + + | Author | [place] [employer] Science [facility] | + + + | Organization | [facility] [employer] Science [facility] [...] Providers + +------+ + | Care Tube Machine Operator Name | Role | Phone | + +------+ + | Brenden Benavides MD | PCP | | + +------+ + Encounter Details +--------+ + + + + | Date | Type | Department | Care Team | Description | +--------+ + + + + | 02/21/ | Telephone | [facility] | [address] | | | 2006 | | [place] | [address] | | | | | Oculoplastics at | [facility] | | | | | [address] | [address] | | | | | [address] | | | | | | Eye [place] | | | | | | [facility], 5th floor | | | | | | [place] [address] | | | | | | [phone] | | | +--------+ + + + [...]
--- OUTSIDE RECORDS SUMMARY | ~2020-04-04 | XMS | Encounter Summary ---
Demographics + + + | Address | [address] | | | [place] [address] | + + + | Home Phone [...] + + + | Author | [place] [employer] Science [facility] | + + + | Organization | [facility] [employer] [facility] | + [...] Providers + +------+ + | Care Merchandise Coordinator Name | Role | Phone | [...] Cerebri | | 2006 | Visit | [place] | | (Primary Dx) | | | | Neuro-Ophthalmology | | | | | | [address] [facility] | | | | | | Mailcode: PATTI | | | | | | [place] [address] | | | | | | [phone] | | | +--------+---------+ + + + [...] CASIMIRO PAYTON MD [address] [place] [address] Per [facility] chart note taken this morning by . Symptoms: Patient specific problem noted by patient: transient visual loss HPI: 31 y.o. year old female from [place] : Patient presents with: Transient visual loss [...] negative Pulmonary: negative GI: Problems due to halfway use of tylenol/ibuprofen. : negative Musculoskeletal: negative [...] Brad Currie MD Neuro-Ophthalmology and Cerebrovascular Disease Chemist Organic of Ophthalmology, Neurology, and Neurosurgery documented in [...]
--- OUTSIDE RECORDS SUMMARY | ~2020-04-04 | XMS | Encounter Summary ---
Demographics + + + | Address | [address] | | | [place] [address] | + + + | Home Phone [...] | Organization | [facility] | | | [...] Providers + +------+ + | Care Sewing Supervisor Name | Role | Phone | + +------+ + PCP | Unavailable | + +------+ + Encounter Details +--------+ + + + + | Date | Type | Department | Care Team | Description | +--------+ + + + + | 06/10/ | Hospital | [facility] | | | | 1991 | Encounter | [facility] | | | | | | HEALTH SV [address] | | | | | | [place], | | | | | | [place] [address] | | | | | | [phone] | | | +--------+ + + + [...]
--- OUTSIDE RECORDS SUMMARY | ~2020-04-04 | XMS | Encounter Summary ---
Demographics + + + | Address | [address] | | | [place] [address] | + + + | Home Phone [...] | [facility] | | | [...] Team Providers + +------+ + | Care Surgery Center Administrator Name | Role | Phone | + +------+ + PCP | Unavailable | + +------+ + Encounter Details +--------+ + + + + | Date | Type | Department | Care Team | Description | +--------+ + + + + | 06/22/ | Hospital | [facility] | Yovanny Suazo, | | | 1991 | Encounter | MED CTR WOMENS | MD [address] | | | | | [facility] [address] | [address] | | | | | [place], | [place] [address] | | | | | [place] [address] | [phone] | | | | | [phone] | | | +--------+ + + + [...]
--- OUTSIDE RECORDS SUMMARY | ~2020-04-04 | XMS | Encounter Summary ---
Demographics + + + | Address | [address] | | | [place] [address] | + + + | Home Phone [...] | [facility] | | [...] Providers + +------+ + | Care Pipe Coverer Name | Role | Phone | + +------+ + PCP | Unavailable | + +------+ + Encounter Details +--------+ + + + + | Date | Type | Department | Care Team | Description | +--------+ + + + + | 03/03/ | Emergency | [facility] | Artis Reyes DO | Pain, abdominal, | | 2012 | | MEDICAL CENTER | [address] | unknown etiology | | | | EMERGENCY CENTER | [place], [place] | | | | | [address] [facility] | [address] | | | | | [place], [place] | [phone] | | | | | [address] | | | | | | [phone] | | | +--------+ + + + [...]
--- OUTSIDE RECORDS SUMMARY | ~2020-04-04 | XMS | Encounter Summary ---
Demographics + + + | Address | [address] | | | [place] [address] | + + + | Home Phone [...] | [facility] | | | [...] Providers + +------+ + | Care Talent Acquisition Director Name | Role | Phone | + +------+ + PCP | Unavailable | + +------+ + Encounter Details +--------+ + + + + | Date | Type | Department | Care Team | Description | +--------+ + + + + | 09/27/ | Hospital | [facility] | | | | 1991 | Encounter | MED CTR WOMENS | | | | | | HEALTH [facility] [address] | | | | | | [place], | | | | | | [place] [address] | | | | | | [phone] | | | +--------+ + + + [...]
--- OUTSIDE RECORDS SUMMARY | ~2020-04-04 | XMS | Encounter Summary ---
Demographics + + + | Address | [address] | | | [place] [address] | + + + | Home Phone [...] [facility] | | | [...] Providers + +------+ + | Care Welder Gas Tungsten Arc Name | Role | Phone | [...] | | [place] | [place] [address] | | | | | [address] | | | | | | [phone] | | | +--------+ + + + [...]
--- OUTSIDE RECORDS SUMMARY | ~2020-04-04 | XMS | Encounter Summary ---
Demographics + + + | Address | [address] | | | [place] [address] | + + + | Home Phone [...] + + + | Author | [place] [facility] [employer] [facility] | + + + | Organization | [facility] [employer] [facility] | + + [...] + +------+ + | Care Information Security Officer Name | Role | Phone | + +------+ + | Brenden Benavides MD | PCP | | + +------+ + Encounter Details +--------+ + + + + | Date | Type | Department | Care Team | Description | +--------+ + + + + | 01/05/ | Telephone | [facility] | Brad Currie MD | | | 2006 | | [place] | | | | | | Neuro-Ophthalmology | | | | | | [address] [facility] | | | | | | Mailcode: PATTI | | | | | | [place] [address] | | | | | | [phone] | | | +--------+ + + + [...]
--- OUTSIDE RECORDS SUMMARY | ~2020-04-04 | XMS | Encounter Summary ---
Demographics + + + | Address | [address] | | | [place] [address] | [...] Organization | [facility] [...] Providers + +------+ + | Care Bowling Teacher Name | Role | Phone | + +------+ + PCP | Unavailable | + +------+ + Encounter Details +--------+ + + + + | Date | Type | Department | Care Team | Description | +--------+ + + + + | 04/20/ | Hospital | [facility] | | | | 1995 | Encounter | MED CTR EMERGENCY | | | | | | CENTER [address] | | | | | | [place] | | | | | | [address] | | | | | | [phone] | | | +--------+ + + + [...]
--- OUTSIDE RECORDS SUMMARY | ~2020-04-04 | XMS | Clinical Summary ---
Demographics + + + | Address | [address] | | | [place] [address] | + + + | Home Phone [...] Organization | [facility] | [...] Team Providers + +------+ + | Care Molding And Trim Installer Name | Role | Phone | [...] +---------+--------+ | [place] | MEDICA | [id number] | 11/09/ | [phone] | | Medica | | | ID [place] | | 2018-P | 2 | | id | | | PLUS | | resent | | | | + +--------+ +--------+ +---------+--------+ | [facility] | IHS | [id number] | 11/08/ | | | Indemn | [...] | 1975 | [phone] | [place] [address] | | | rene | | | 5 (Home) | | + +--------+ +--------+ + + Advance Directives + + + + + | Type | Date Recorded | Patient | Explanation | | | | Construction Rigger | | + + + + + | Power of | | | | | Automatic Nailing Machine Feeder | | | | + + + + + | Advance | | | | | Directive | | | | + + + + +
--- OUTSIDE RECORDS SUMMARY | ~2020-04-04 | XMS | Encounter Summary ---
Demographics + + + | Address | [address] | | | [place] [address] | + + + | Home Phone [...] | Organization | [facility] | [...] Team Providers + +------+ + | Care Disease Case Manager Name | Role | Phone | + +------+ + PCP | Unavailable | + +------+ + Encounter Details +--------+ + + + + | Date | Type | Department | Care Team | Description | +--------+ + + + + | 01/15/ | Hospital | [facility] | Marine Oden | | | 2011 | Encounter | MED CTR EMERGENCY | DO Gaurang Drake | | | | | [address] | [place], [place] | | | | | [place], [place] | [address] | | | | | [address] | | | | | | [phone] | | | +--------+ + + + [...]
--- OUTSIDE RECORDS SUMMARY | ~2020-04-04 | XMS | Encounter Summary ---
Demographics + + + | Address | [address] | | | [place] [address] | + + + | Home Phone [...] Organization | [facility] | | [...] Team Providers + +------+ + | Care Vertical Contour Band Saw Operator Name | Role | Phone | + +------+ + PCP | Unavailable | + +------+ + Encounter Details +--------+ + + + + | Date | Type | Department | Care Team | Description | +--------+ + + + + | 06/22/ | Hospital | [facility] | Yovanny Suazo, | | | 1991 | Encounter | MED CTR WOMENS | MD [address] | | | | | [facility] [address] | [address] | | | | | [place], | [place] [address] | | | | | [place] [address] | [phone] | | | | | [phone] | | | +--------+ + + + [...]
--- OUTSIDE RECORDS SUMMARY | ~2020-04-04 | XMS | Encounter Summary ---
Demographics + + + | Address | [address] | | | [place] [address] | + + + | Home Phone [...] [facility] | | [...] Team Providers + +------+ + | Care Mini Lab Operator Name | Role | Phone | + +------+ + PCP | Unavailable | + +------+ + Encounter Details +--------+ + + + + | Date | Type | Department | Care Team | Description | +--------+ + + + + | 07/07/ | Hospital | [facility] | | | | 1991 | Encounter | MED CTR EMERGENCY | | | | | | CENTER [address] | | | | | | [place] | | | | | | [address] | | | | | | [phone] | | | +--------+ + + + [...]
--- OUTSIDE RECORDS SUMMARY | ~2020-04-04 | XMS | Encounter Summary ---
Demographics + + + | Address | [address] | | | [place] [address] | + + + | Home Phone [...] | Organization | [facility] [...] + +------+ + | Care Director Of People Name | Role | Phone | + +------+ + PCP | Unavailable | + +------+ + Encounter Details +--------+ + + + + | Date | Type | Department | Care Team | Description | +--------+ + + + + | 05/25/ | Hospital | [facility] | | | | 1991 | Encounter | MED CTR WOMENS | | | | | | HEALTH SV [address] | | | | | | [place], | | | | | | [place] [address] | | | | | | [phone] | | | +--------+ + + + [...]
--- OUTSIDE RECORDS SUMMARY | ~2020-04-04 | XMS | Encounter Summary ---
Demographics + + + | Address | [address] | | | [place] [address] | + + + | Home Phone [...] Organization | [facility] [...] Providers + +------+ + | Care Dice Manager Name | Role | Phone | + +------+ + PCP | Unavailable | + +------+ + Encounter Details +--------+ + + + + | Date | Type | Department | Care Team | Description | +--------+ + + + + | 10/02/ | Hospital | [facility] | | | | 1991 | Encounter | MED CTR WOMENS | | | | | | HEALTH SV [address] | | | | | | [place], | | | | | | [place] [address] | | | | | | [phone] | | | +--------+ + + + [...]
--- OUTSIDE RECORDS SUMMARY | ~2020-04-04 | XMS | Encounter Summary ---
Demographics + + + | Address | [address] | | | [place] [address] | + + + | Home Phone [...] Organization | [facility] [...] Providers + +------+ + | Care Labor Relations Officer Name | Role | Phone | + +------+ + PCP | Unavailable | + +------+ + Encounter Details +--------+ + + + + | Date | Type | Department | Care Team | Description | +--------+ + + + + | 07/30/ | Hospital | [facility] | | | | 2008 - | Encounter | MED CTR MED ONC | | | | | | [address] [place] | | | | 08/02/ | | [place] [address] | | | | 2008 | | [phone] | | | +--------+ + + + [...]
--- OUTSIDE RECORDS SUMMARY | ~2020-04-04 | XMS | Encounter Summary ---
Demographics + + + | Address | [address] | | | [place] [address] | + + + | Home Phone [...] + + + | Author | [place] [employer] [facility] | + + + | Organization | [facility] | + + + | Address | Unknown | + + + | Phone | Unavailable | + + + Support + + +---------+ + | Name | Relationship | Address | Phone | + + +---------+ + | Ruby Au | ECON | Unknown | | + + +---------+ + Care Team Providers + +------+ + | Care Broadband Engineer Name | Role | Phone | [...] | | [place] Mailcode:OP14B | [place], | | | | | [facility] | [place] [address] | | | | | [place], [place] | | | | | | [address] | | | | | | [phone] | | | +--------+ + + + [...]
--- OUTSIDE RECORDS SUMMARY | ~2020-04-04 | XMS | Encounter Summary ---
Demographics + + + | Address | [address] | | | [place] [address] | + + + | Home Phone [...] Organization | [facility] | [...] Providers + +------+ + | Care Pan Helper Name | Role | Phone | + +------+ + PCP | Unavailable | + +------+ + Encounter Details +--------+ + + + + | Date | Type | Department | Care Team | Description | +--------+ + + + + | 10/29/ | Hospital | [facility] | | | | 1991 | Encounter | MED CTR EMERGENCY | | | | | | CENTER [address] | | | | | | [place] | | | | | | [address] | | | | | | [phone] | | | +--------+ + + + [...]
--- OUTSIDE RECORDS SUMMARY | ~2020-04-04 | XMS | Encounter Summary ---
Demographics + + + | Address | [address] | | | [place] [address] | + + + | Home Phone [...] + + | Author | [place] [employer] [facility] | + + + | Organization | [facility] [employer] [facility] | [...] Providers + +------+ + | Care Director Prospect Name | Role | Phone | + [...] | | | Ave Mailcode: CH8N | [place], [place] | | | | | [facility] | [address] | | | | | and Healing, | [phone] | | | | | | | | | | | Floor [place], [place] | | | | | | [address] | | | | | | [phone] | | | +--------+ + + + [...]
--- OUTSIDE RECORDS SUMMARY | ~2020-04-04 | XMS | Encounter Summary ---
Demographics + + + | Address | [address] | | | [place] [address] | + + + | Home Phone [...] + + | Author | [place] [employer] [facility] | + + + | Organization | [facility] [employer] [facility] | [...] Team Providers + +------+ + | Care Morphologist Name | Role | Phone | + [...] | Headache | | 2005 | | [place]/Ophthalmol | MD Jordin | | | | | [place] at [facility] [address] | | | | | | [address] [place] Mailcode: | | | | | | CH11P [facility] | | | | | | Health and Healing, | | | | | | Building | | | | | | Floor [place], [place] | | | | | | [address] | | | | | | [phone] | | | +--------+ + + + [...]
--- OUTSIDE RECORDS SUMMARY | ~2020-04-04 | XMS | Encounter Summary ---
Demographics + + + | Address | [address] | | | [place] [address] | + + + | Home Phone [...] | Organization | [facility] | | | and [...] Providers + +------+ + | Care Vacuum Conditioner Operator Name | Role | Phone [...] left hand | [address] | | | | n | Weakness of | [address] | [place], | | | | | both hands | [place], | [place] [address] | | | | | [place] left | [place] [address] | Phone: | | | | | wrist Pain | Phone: | [phone] | | | | | of right | [phone] | Fax: | | | | | thumb | Fax: | [phone] | | | | | Trigger | [phone] | | | | | | finger of | | | | | | | right thumb | | | | | | | Procedures | | | | | | | DC MOTOR | | | | | | | &/SENS > | | | | | | | NRV CNDJ | | | | | | | PRECONF | | | | | | | ELTRODE LIMB | | | | | | | DC NEEDLE | | | | | | [...] | | | | | Trigger | [address] | [place] | | | | | finger of | [place], | [place] | | | | | right thumb | [place] [address] | [address] | | | | | | Phone: | Phone: | | | | | | [phone] | [phone] | | | | | | Fax: | Fax: | | | | | | [phone] | [phone] | +--------+ + + + + + [...] | | Rehabilitatio | tunnel | 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 | | [place], | | | | | left | [place] | [place] [address] | | | | | | [address] | Phone: | | | | | | [place], | [phone] | | | | | | [place] [address] | Fax: | | | | | | Phone: | [phone] | | | | | | [phone] | | | | | | | Fax: | | | | | | | [phone] | | +--------+--------+ + + + + Encounter Details +--------+---------+ + + + | Date | Type | Department | Care Team | Description | +--------+---------+ + + + | 01/03/ | Office | [facility] | Amanuel Jennings, | Numbness of left | | 2019 | Visit | PHYSIATRY [address] | MD [address] | hand (Primary Dx); | | | | [address] | [place] | Weakness of both | | | | [place] | [address] | hands; [place] of left | | | | [address] | | wrist; Pain of right | | | | [phone] | | thumb; Trigger | | | [...] in this encounter Patient Instructions Patient Instructions Adleaide Santa, Leading Firefighter - 01/03/2019 1:00 PM Rina chowdhury o [...] Acute low back pain Antisocial personality disorder ([facility]) Anxiety disorder Asthma Benign essential [...] wrist dorsiflexion , finger abduction, and right analysis director. 4/5 hand analysis director on the left Reflexes: 2+ normal and [...] scribed by in my presence, Adelaide Santa, Leading Firefighter and are both accurate and comp lete. [...]
--- OUTSIDE RECORDS SUMMARY | ~2020-04-04 | XMS | Encounter Summary ---
Demographics + + + | Address | [address] | | | [place] [address] | + + + | Home Phone [...] + + + | Author | [place] [employer] [facility] | + + + | Organization | [facility] [employer] [facility] [...] + +------+ + | Care Net Developer Architect Name | Role | Phone [...] | | | | | | [address] | | | | | | | [facility] | | | | | | | [place], | | | | | | | [address] [place] [address] | | | | | | | [place], [place] | | | | | | | [address] Phone: | | | | | | | [phone] | | | | | | | Fax: | | | | | | | [phone] | +--------+--------+ + + + + Encounter Details +--------+ + + + + | Date | Type | Department | Care Team | Description | +--------+ + + + + | 03/26/ | Procedure | [facility] | | Visual field testing | | 2012 | | [facility] | | | | | | [place] at [facility] [address] | | | | | [address] | | | | | | Mailcode: CH11P | | | | | | [facility] | | | | | | and Healing, | | | | | | | | | | | | [place], [place] | | | | | | [address] | | | | | | [phone] | | | +--------+ + + + [...] PDT Annabella Au was seen in the [facility] [place] [facility] Department today, 2012, for 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 documented in this encounter Plan of Treatment Not on filedocumented as of this encounter Procedures + +--------+ + + + | Procedure Name | Priori | Date/Time | Associated Diagnosis | Comments | | | ty | | | | + +--------+ + + + | RI VISUAL FIELD | Routin | 03/26/2013 | [...]
--- OUTSIDE RECORDS SUMMARY | ~2020-04-04 | XMS | Encounter Summary ---
Demographics + + + | Address | [address] | | | [place] [address] | + + + | Home Phone [...] + + + | Author | [place] [employer] [facility] | + + + | Organization | [facility] [place] [employer] | + + [...] Providers + +------+ + | Care Cargo Vessel Stewardess Name | Role | Phone | + [...] | 2010 | | [facility] [address] | [address] | | | | | Ave Mailcode: CH8N | [place], [place] | | | | | [facility] | [address] | | | | | and Healing, | [phone] | | | | | [facility] | | | | | | Floor [place], [place] | | | | | | [address] | | | | | | [phone] | | | +--------+ + + + [...]
--- OUTSIDE RECORDS SUMMARY | ~2020-04-04 | XMS | Encounter Summary ---
Demographics + + + | Address | [address] | | | [place] [address] | + + + | Home Phone [...] + + + | Author | [place] [employer] [facility] | + + + | Organization | [facility] [employer] [facility] | [...] Providers + +------+ + | Care Parking Cashier Name | Role | Phone | [...] Telephone follow-up | | 2015 | | [place] | [address] | | | | | Neuro-Ophthalmology | [place], [place] | | | | | at [facility] [address] | [address] | | | | | Ave Mailcode: [facility] | [phone] | | | | | [facility] | | | | | | and [place], | | | | | | | | | | | | Floor [place], [place] | | | | | | [address] | | | | | | [phone] | | | +--------+ + + + [...]
--- OUTSIDE RECORDS SUMMARY | ~2020-04-04 | XMS | Encounter Summary ---
Demographics + + + | Address | [address] | | | [place] [address] | + + + | Home Phone [...] + + | Author | [place] [employer] [facility] | + + + | Organization | [facility] [employer] [facility] | + + + | Address | Unknown | + + + | Phone | Unavailable | + + + Support + + +---------+ + | Name | Relationship | Address | Phone | + + +---------+ + | Ruby Au | ECON | Unknown | | + + +---------+ + Care Team Providers + +------+ + | Care Adult Literacy Instructor Name | Role | Phone | [...] | | | Ave Mailcode: CH8N | [place], [place] | | | | | [facility] | [address] | | | | | and Healing, | [phone] | | | | | [facility] | | | | | | Floor [place], [place] | | | | | | [address] | | | | | | [phone] | | | +--------+ + + + [...]
--- OUTSIDE RECORDS SUMMARY | ~2020-04-04 | XMS | Encounter Summary ---
Demographics + + + | Address | [address] | | | [place] [address] | + + + | Home Phone [...] | Organization | [facility] [...] | 09/07/ | Hospital | [facility] | | | | 1991 | Encounter | MED CTR EMERGENCY | | | | | | CENTER [address] | | | | | | [place] | | | | | | [address] | | | | | | [phone] | | | +--------+ + + + [...]
--- OUTSIDE RECORDS SUMMARY | ~2020-04-04 | XMS | Encounter Summary ---
Demographics + + + | Address | [address] | | | [place] [address] | + + + | Home Phone [...] + + + | Author | [place] [employer] [facility] | + + + | Organization | [facility] [employer] [facility] | [...] + +------+ + | Care Corn Sheller Name | Role | Phone | + [...] | | | | | [address] [facility] | | | | | | Mailcode: PATTI | | | | | | [place] [address] | | | | | | [phone] | | | +--------+ + + + [...]
--- OUTSIDE RECORDS SUMMARY | ~2020-04-04 | XMS | Encounter Summary ---
Demographics + + + | Address | [address] | | | [place] [address] | + + + | Home Phone [...] | Organization | [facility] | | [...] Providers + +------+ + | Care Oracle Developer Name | Role | Phone | + +------+ + PCP | Unavailable | + +------+ + Encounter Details +--------+ + + + + | Date | Type | Department | Care Team | Description | +--------+ + + + + | 09/30/ | Hospital | [facility] | | | | 1991 | Encounter | MED CTR WOMENS | | | | | | HEALTH SV [address] | | | | | | [place], | | | | | | [place] [address] | | | | | | [phone] | | | +--------+ + + + [...]
--- OUTSIDE RECORDS SUMMARY | ~2020-04-04 | XMS | Encounter Summary ---
Demographics + + + | Address | [address] | | | [place] [address] | + + + | Home Phone [...] + + + | Author | [place] [employer] [facility] | + + + | Organization | [facility] [facility] | [...] Team Providers + +------+ + | Care Winter Sports Manager Name | Role | Phone | [...] 07/22/ | Office | Preoperative | Maryellen Elizabeht, | Other Specified | | 2007 | Visit | Medicine Clinic at | [facility] [address] [facility] | Pre-Operative | | | | [facility] 4th Floor [address] | Examination (Primary | | | | [address] | [place], [place] | Dx); Pseudotumor | | | | Mailcode: CH4S | [address] | Cerebri; Encounter | | | | [facility] | [phone] | for Long-Term | | | | and Healing, | | (Current) Use of | | | | Building 1,4th Floor | | Anticoagulants | | | | [place], [place] | | | | | | [address] | | | | | | [phone] | | | +--------+---------+ + + + [...] [facility],[address] [place] [address] documented in this encou nter Plan of Treatment + + +--------+ + + | Name | Type | Priori | Associated Diagnoses | Order Schedule | | | | ty | | | + + +--------+ + + | MS COLLECTION VENOUS | Procedures | Routin | [...] + + + + + | [facility] DEPARTMENT OF | [address] [facility] | [place] [address] | | | PATHOLOGY | [address] | | | + + + + + | [facility] DEPARTMENT OF | [address] | [place] [address] | | | PATHOLOGY | [address] [...] [facility] | [address] | [place] [address] | | | PATHOLOGY | [address] | | | + + + + + | [facility] | [address] | [place] [address] | | | PATHOLOGY | [address] [...] + | [facility] | [address] | [place] [address] | | | PATHOLOGY | [address] | | | + + + + + | [facility] | [address] | [place] [address] | | | PATHOLOGY | [address] [...] + | [facility] | [address] | [place] [address] | | | PATHOLOGY | [address] | | | + + + + + | [facility] | [address] [place] [address] | [place] [address] | | | PATHOLOGY | [address] [...] Performed At | + + + | [id number] Estimated GFR > 60 mL/min/1.73 sq m if non- | [facility] | | Mauritanian [id number] Estimated GFR > 60 mL/min/1.73 sq m if | DEPARTMENT OF | | [place]ian GFR is estimated using the MDRD equation [...] + + + + + | [facility] DEPARTMENT OF | [address] | [place] [address] | | | PATHOLOGY | [address] | | | + + + + + | [facility] DEPARTMENT OF | [address] | [place] [address] | | | PATHOLOGY | [address] [...] + + + + + | [facility] DEPARTMENT OF | [address] | [place] [address] | | | PATHOLOGY | [address] | | | + + + + + | [facility] OF | [address] | [place] [address] | | | PATHOLOGY | [address] | | | + + + + + documented in this encounter Visit Diagnoses + + | Diagnosis | + + | Other specified pre-operative examination - Primary | + + | Pseudotumor cerebri Benign intracranial hypertension | + + | 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
--- OUTSIDE RECORDS SUMMARY | ~2020-04-04 | XMS | Encounter Summary ---
Demographics + + + | Address | [address] | | | [place] [address] | + + + | Home Phone [...] | Organization | [facility] | [...] Team Providers + +------+ + | Care Isotope Technologist Name | Role | Phone | + +------+ + PCP | Unavailable | + +------+ + Encounter Details +--------+ + + + + | Date | Type | Department | Care Team | Description | +--------+ + + + + | 06/10/ | Hospital | [facility] | | | | 1991 | Encounter | [facility] | | | | | | HEALTH [facility] [address] | | | | | | [place], | | | | | | [place] [address] | | | | | | [phone] | | | +--------+ + + + [...]
--- OUTSIDE RECORDS SUMMARY | ~2020-04-04 | XMS | Encounter Summary ---
Demographics + + + | Address | [address] | | | [place] [address] | + + + | Home Phone [...] + | Organization | [facility] [...] Providers + +------+ + | Care Licensed Therapist Name | Role | Phone | [...] | | | [place] | [address] | | | | | [address] | [phone] | | | | | [phone] | | | +--------+ + + + [...]
[2020-04-04] MEDS ORDERED: CARAFATE1 GM PO (17:39)
== END 2020-04-04 17:49 | disposition home or self-care (01) ==
LOC: ED 14:56
DX: K21.9 Gastro-esophageal reflux disease without esophagitis (principal); K59.00 Constipation, unspecified; E11.9 Type 2 diabetes mellitus without complications; I10 Essential (primary) hypertension; J44.9 Chronic obstructive pulmonary disease, unspecified; F17.200 Nicotine dependence, unspecified, uncomplicated; Z88.5 Allergy status to narcotic agent; Z88.1 Allergy status to other antibiotic agents; Z88.8 Allergy status to other drugs, medicaments and biological substances; Z79.899 Other long term (current) drug therapy
CPT/HCPCS: 74018; 80053; 81001; 83690; 83735; 84703; 85025; 99284-25

== ENCOUNTER 2020-05-03 11:48 | Emergency (ER) | payer OTHER ==
[~2020-05-03] VITALS: Ht 165.1 cm; Wt 104.3 kg
--- OUTSIDE RECORDS SUMMARY | ~2020-05-03 | XMS | Encounter Summary ---
Demographics + + + | Address | [address] | | | [place] [address] | + + + | Home Phone | | + + + | Preferred Language | Unknown | + + + | Marital Status | | + + + | Mu-Ism Affiliation | NON | + + + | Race | or | + + + | Ethnic Group | Not or | + + + Author + + + | Author | [place] [facility] | + + + | Organization | [facility] | + + + | Address | Unknown | + + + | Phone | Unavailable | + + + Support + + +---------+ + | Name | Relationship | Address | Phone | + + +---------+ + | Ruby Au | ECON | Unknown | | + + +---------+ + Care Team Providers + +------+ + | Care Reflector Driller And Deburrer Name | Role | Phone | + [...] Description | +--------+---------+ + + + | 02/20/ | Office | [facility] | Hay Hughes MD 3[address] | Pseudotumor Cerebri; | | 2006 | Visit | [place] | Cassi Clark | Pain in or Around | | | | Oculoplastics at | [place], [place] | Eye | | | | [address] | [address] | | | | | [address] | [phone] | | | | | [facility] [place] | | | | | | [facility], [facility] floor | | | | | | [place] [address] | | | | | | [phone] | | | +--------+---------+ + + + [...] + + documented as of this encounter Progress Notes Hay Hughes - 02/20/2007 1:30 PM PDTFormatting of this note might be different from the origi nal. Procedures Performed: 02/07/07 Left optic nerve sheath fenestration. Telephone call on 02/[address] Bermudez Pain improving slowly, but pt requesting additional V icodin. Pt notes bump in lateral canthal area that has appeared in the past few days. Nonred , nontender. I advised patient to come in to be seen here or by an gold stamper in [facility], but she says she does not have transportation. I will call in Vicodin #20, pt to call i mmediately if there is any worsening. Pt states lucho lump in left taoism is gone. No pain. Pt. Had cough 1 month ago. Had fevers 1 01.5 last week and last night was 102. Nothing this morning. No coughing now. Does not feel sick. No associated eye pain or redness. VAsc: OD 20/15-1 OS: 20/20-3 ph-> NI No APD Incision healing well. Mild mechanical ptosis. No erythema or significant edema. No pain on palpation. SLE: Conj: Clear OU Cornea: Clear OU A/C: D&Q OU Iris: Normal OU Lens: Clear OU Encounter Diagnoses Code Name Primary? 348.2AD Pseudotumor Cerebri 379.91 Pain in or Around Eye Imp: 1. Doing well s/p left ONSF. Vision is better. Plan: 1. F/U with Dr. Currie on 03/12 as planned. 2. Rx 10 Vicodin to use very sparingly. Informed pt she will not need any more after that i s out. Must avoid rebound narcotic headaches. documented in this encounter Plan of Treatment Not on filedocumented as of this encounter Visit Diagnoses + + | Diagnosis | + + | Pseudotumor cerebri Benign intracranial hypertension | + + | Pain in or around eye | + + documented in this encounter"
--- OUTSIDE RECORDS SUMMARY | ~2020-05-03 | XMS | Encounter Summary ---
Demographics + + + | Address | [address] | | | [place] [address] | + + + | Home Phone | | + + + | Preferred Language | Unknown | + + + | Marital Status | | + + + | Zoroastrian Affiliation | Unknown | + + + | Race | Unknown | + + + | Ethnic Group | Unknown | + + + Author + + + | Author | [facility] | | | and [place] | + + + | Organization | [facility] | | | and [place] [...] Providers + +------+ + | Care Manager Immunology Name | Role | Phone | + +------+ + PCP | Unavailable | + +------+ + Encounter Details +--------+ + + + + | Date | Type | Department | Care Team | Description | +--------+ + + + + | 07/17/ | Hospital | [facility] | Domingo Darby, | | | 2010 | Encounter | HEART MED CTR | [address] | | | | | EMERGENCY CENTER | [place] [address] | | | | | [address] | [phone] | | | | | [place], [place] | | | | | | [address] | | | | | | [phone] | | | +--------+ + + + [...]
--- OUTSIDE RECORDS SUMMARY | ~2020-05-03 | XMS | Encounter Summary ---
Demographics + + + | Address | [address] | | | [place] [address] | + + + | Home Phone | | + + + | Preferred Language | Unknown | + + + | Marital Status | | + + + | Evangelical Affiliation | NON | + + + | Race | or | + + + | Ethnic Group | Not or | + + + Author + + + | Author | [place] [employer] [facility] | + + + | Organization | [facility] [employer] [facility] | + + + | Address | Unknown | + + + | Phone | Unavailable | + + + Support + + +---------+ + | Name | Relationship | Address | Phone | + + +---------+ + | Ruby Au | ECON | Unknown | | + + +---------+ + Care Team Providers + +------+ + | Care Unit Assistant Name | Role | Phone | + +------+ + | Dennis Maddox | PCP | | + +------+ + Reason for Visit + + + | Reason | Comments | + + + | Refill Request | | + + + Encounter Details +--------+--------+ + + + | Date | Type | Department | Care Team | Description | +--------+--------+ + + + | 03/29/ | Refill | [facility] | Mo Hood | Refill Request | | 2012 | | [place]/Ophthalmol | MD Perry | | | | | ramonjaneen at [facility] [address] | | | | | | [address] Mailcode: | | | | | | CH11P [facility] | | | | | | Health and Healing, | | | | | | [facility] | | | | | | Floor [place], [place] | | | | | | [address] | | | | | | [phone] | | | +--------+--------+ + + + [...]
--- OUTSIDE RECORDS SUMMARY | ~2020-05-03 | XMS | Encounter Summary ---
Demographics + + + | Address | [address] | | | [place] [address] | + + + | Home Phone | | + + + | Preferred Language | Unknown | + + + | Marital Status | | + + + | Sikh Affiliation | Unknown | + + + | Race | Unknown | + + + | Ethnic Group | Unknown | + + + Author + + + | Author | [facility] | | | and [place] | + + + | Organization | [facility] | | | and [place] [...] Team Providers + +------+ + | Care Orange Picker Machine Operator Name | Role | Phone | + +------+ + PCP | Unavailable | + +------+ + Encounter Details +--------+ + + + + | Date | Type | Department | Care Team | Description | +--------+ + + + + | 03/03/ | Emergency | [facility] | Artis Reyes DO | Pain, abdominal, | | 2012 | | MEDICAL CENTER | [address] | unknown etiology | | | | EMERGENCY CENTER | [place], [place] | | | | | [address] [facility] | [address] | | | | | [place], [place] | [phone] | | | | | [address] | | | | | | [phone] | | | +--------+ + + + [...] site | + + documented in this encounter"
--- OUTSIDE RECORDS SUMMARY | ~2020-05-03 | XMS | Encounter Summary ---
Demographics + + + | Address | [address] | | | [place] [address] | + + + | Home Phone | | + + + | Preferred Language | Unknown | + + + | Marital Status | | + + + | Presybeterian Affiliation | Unknown | + + + | Race | Unknown | + + + | Ethnic Group | Unknown | + + + Author + + + | Author | [facility] | | | and [place] | + + + | Organization | [facility] | | | and [place] [...] Team Providers + +------+ + | Care Gluing Machine Operator Name | Role | Phone | + +------+ + PCP | Unavailable | + +------+ + Encounter Details +--------+ + + + + | Date | Type | Department | Care Team | Description | +--------+ + + + + | 03/29/ | Hospital | [facility] | | | | 2006 | Encounter | MED CTR XRAY [address] | | | | | | [address] | | | | | | [place] [address] | | | | | | [phone] | | | +--------+ + + + [...]
--- OUTSIDE RECORDS SUMMARY | ~2020-05-03 | XMS | Encounter Summary ---
Demographics + + + | Address | [address] | | | [place] [address] | + + + | Home Phone | | + + + | Preferred Language | Unknown | + + + | Marital Status | | + + + | Jewish Affiliation | NON | + + + | Race | or | + + + | Ethnic Group | Not or | + + + Author + + + | Author | [place] [employer] [facility] | + + + | Organization | [facility] [employer] [facility] | + + + | Address | Unknown | + + + | Phone | Unavailable | + + + Support + + +---------+ + | Name | Relationship | Address | Phone | + + +---------+ + | Ruby Au | ECON | Unknown | | + + +---------+ + Care Team Providers + +------+ + | Care Carbonizer Name | Role | Phone | + [...] | +--------+ + + + + | 09/14/ | Telephone | Neurosurgery [address] | Magdiel Fallon, | Headache | | 2008 | | [address] | ,PhD [address] | | | | | [place] Mailcode:OP14B | [address] | | | | | [facility] | [place], [place] | | | | | [place], [place] | [address] | | | | | [address] | [phone] | | | | | [phone] | | | +--------+ + + + [...]
--- OUTSIDE RECORDS SUMMARY | ~2020-05-03 | XMS | Encounter Summary ---
Demographics + + + | Address | [address] | | | [place] [address] | + + + | Home Phone | | + + + | Preferred Language | Unknown | + + + | Marital Status | | + + + | Church Affiliation | Unknown | + + + | Race | Unknown | + + + | Ethnic Group | Unknown | + + + Author + + + | Author | [facility] | | | and [place] | + + + | Organization | [facility] | | | and [...] Team Providers + +------+ + | Care Receiving Specialist Name | Role | Phone | + +------+ + PCP | Unavailable | + +------+ + Encounter Details +--------+ + + + + | Date | Type | Department | Care Team | Description | +--------+ + + + + | 07/07/ | Hospital | [facility] | | | | 1991 | Encounter | MED CTR EMERGENCY | | | | | | CENTER [address] | | | | | | [place] | | | | | | [address] | | | | | | [phone] | | | +--------+ + + + [...]
--- OUTSIDE RECORDS SUMMARY | ~2020-05-03 | XMS | Encounter Summary ---
Demographics + + + | Address | [address] | | | [place] [address] | + + + | Home Phone | | + + + | Preferred Language | Unknown | + + + | Marital Status | | + + + | Anabaptist Affiliation | NON | + + + | Race | or | + + + | Ethnic Group | Not or | + + + Author + + + | Author | [place] [employer] [facility] | + + + | Organization | [facility] [employer] [facility] | + + + | Address | Unknown | + + + | Phone | Unavailable | + + + Support + + +---------+ + | Name | Relationship | Address | Phone | + + +---------+ + | Ruby Au | ECON | Unknown | | + + +---------+ + Care Team Providers + +------+ + | Care Irrigationist Name | Role | Phone | + +------+ + | Dennis Maddox | PCP | | + +------+ + Reason for Visit + + + | Reason | Comments | + + + | Prescription | | + + + Encounter Details +--------+ + + + + | Date | Type | Department | Care Team | Description | +--------+ + + + + | 03/27/ | Telephone | [facility] | Mo Hood | Prescription | | 2012 | | [place]/Ophthalmol | MD Perry | | | | | leon at [facility] [address] | | | | | | [address] Mailcode: | | | | | | CH11P [facility] | | | | | | Health and [facility], | | | | | | Building | | | | | | [place], [place] | | | | | | [address] | | | | | | [phone] | | | +--------+ + + + [...]
--- OUTSIDE RECORDS SUMMARY | ~2020-05-03 | XMS | Encounter Summary ---
Demographics + + + | Address | [address] | | | [place] [address] | + + + | Home Phone [...] + + + | Author | [place] [employer] [facility] | + + + | Organization | [facility] [employer] [facility] | + + + | Address | Unknown | + + + | Phone | Unavailable | + + + Support + + +---------+ + | Name | Relationship | Address | Phone | + + +---------+ + | Ruby Au | ECON | Unknown | | + + +---------+ + Care Team Providers + +------+ + | Care Fisher Diving Name | Role | Phone | + [...] | | | Ave Mailcode: CH8N | [place], [place] | | | | | [facility] | [address] | | | | | and Healing, | [phone] | | | | | [facility] | | | | | | Floor [place], [place] | | | | | | [address] | | | | | | [phone] | | | +--------+ + + + [...]
--- OUTSIDE RECORDS SUMMARY | ~2020-05-03 | XMS | Encounter Summary ---
Demographics + + + | Address | [address] | | | [place] [address] | + + + | Home Phone | | + + + | Preferred Language | Unknown | + + + | Marital Status | | + + + | Quaker Affiliation | NON | + + + | Race | or | + + + | Ethnic Group | Not or | + + + Author + + + | Author | [place] [employer] [facility] | + + + | Organization | [facility] [employer] [facility] | + + + | Address | Unknown | + + + | Phone | Unavailable | + + + Support + + +---------+ + | Name | Relationship | Address | Phone | + + +---------+ + | Ruby Au | ECON | Unknown | | + + +---------+ + Care Team Providers + +------+ + | Care Brancher Name | Role | Phone | + +------+ + | Dennis Maddox | PCP | | + +------+ + Reason for Visit + + + | Reason | Comments | + + + | Care Coordination | | + + + Encounter Details +--------+ + + + + | Date | Type | Department | Care Team | Description | +--------+ + + + + | /06/ | Telephone | [facility] | Eulalio Arevalo, | Care Coordination | | 2018 | | [place] | MD [address] | | | | | Neuro-Ophthalmology | [facility] [place] | | | | | at [facility] [address] | [address] | | | | | Ave Mailcode: CH3G | [phone] | | | | | [facility] | | | | | | and Healing, | | | | | | Building | | | | | | Floor [place], [place] | | | | | | [address] | | | | | | [phone] | | | +--------+ + + + [...]
--- OUTSIDE RECORDS SUMMARY | ~2020-05-03 | XMS | Encounter Summary ---
Demographics + + + | Address | [address] | | | [place] [address] | + + + | Home Phone | | + + + | Preferred Language | Unknown | + + + | Marital Status | | + + + | Congregational Affiliation | NON | + + + | Race | or | + + + | Ethnic Group | Not or | + + + Author + + + | Author | [place] [facility] | + + + | Organization | [facility] [employer] [facility] | + [...] Providers + +------+ + | Care Electric Sign Assembler Name | Role | Phone | + +------+ + | Yeison Simms MD | PCP | Unavailable | + +------+ + Encounter Details +--------+ + + + + | Date | Type | Department | Care Team | Description | +--------+ + + + + | 12/24/ | Telephone | Neurosurgery at | Kiki Rosen, | | | 2008 | | [facility] | [place] [facility] | | | | | and Healing [address] | Neurosurgery [address] | | | | | [address] Mailcode: | [address] | | | | | CH8N [facility] | [place], [place] | | | | | Health and Healing, | [address] | | | | | Building [address] | | | | | | Floor [place], [place] | | | | | | [address] | | | | | | [phone] | | | +--------+ + + + [...]
--- OUTSIDE RECORDS SUMMARY | ~2020-05-03 | XMS | Encounter Summary ---
Demographics + + + | Address | [address] | | | [place] [address] | + + + | Home Phone | | + + + | Preferred Language | Unknown | + + + | Marital Status | | + + + | Baptist Affiliation | NON | + + + | Race | or | + + + | Ethnic Group | Not or | + + + Author + + + | Author | [place] [employer] [facility] | + + + | Organization | [facility] | + + + | Address | Unknown | + + + | Phone | Unavailable | + + + Support + + +---------+ + | Name | Relationship | Address | Phone | + + +---------+ + | Ruby Au | ECON | Unknown | | + + +---------+ + Care Team Providers + +------+ + | Care Utility Worker Name | Role | Phone [...] Other | | 2005 | | [facility] | [place] [address] | | | | | [address] Mailcode:OP14B | [place], [place] | | | | | [facility] | [address] | | | | | [place], [place] | | | | | | [address] | | | | | | [phone] | | | +--------+ + + + [...]
--- OUTSIDE RECORDS SUMMARY | ~2020-05-03 | XMS | Encounter Summary ---
Demographics + + + | Address | [address] | | | [place] [address] | + + + | Home Phone | | + + + | Preferred Language | Unknown | + + + | Marital Status | | + + + | Faith Affiliation | Unknown | + + + | Race | Unknown | + + + | Ethnic Group | Unknown | + + + Author + + + | Author | [facility] | | | and [place] | + + + | Organization | [facility] | | | [...] Team Providers + +------+ + | Care Galvanometer Assembler Name | Role | Phone | + +------+ + PCP | Unavailable | + +------+ + Encounter Details +--------+ + + + + | Date | Type | Department | Care Team | Description | +--------+ + + + + | 04/26/ | Hospital | [facility] | [place] | | | 2009 | Encounter | HOSPITAL EMERGENCY | MD [address] | | | | | [place] [address] | [facility] | | | | | [address] [place] [place] | [place] [address] | | | | | [address] | [phone] | | | | | [phone] | | | +--------+ + + + [...]
--- OUTSIDE RECORDS SUMMARY | ~2020-05-03 | XMS | Encounter Summary ---
Demographics + + + | Address | [address] | | | [place] [address] | + + + | Home Phone | | + + + | Preferred Language | Unknown | + + + | Marital Status | | + + + | Episcopalian Affiliation | Unknown | + + + | Race | Unknown | + + + | Ethnic Group | Unknown | + + + Author + + + | Author | [facility] | | | and [place] | + + + | Organization | [facility] | | | and [place] | [...] Team Providers + +------+ + | Care Retail Tire Sales Manager Name | Role | Phone | + +------+ + PCP | Unavailable | + +------+ + Encounter Details +--------+ + + + + | Date | Type | Department | Care Team | Description | +--------+ + + + + | 06/22/ | Hospital | [facility] | Yovanny Suazo, | | | 1991 | Encounter | MED CTR [facility] | MD [address] | | | | | [facility] [address] | [address] | | | | | [place], | [place] [address] | | | | | [place] [address] | [phone] | | | | | [phone] | | | +--------+ + + + [...]
--- OUTSIDE RECORDS SUMMARY | ~2020-05-03 | XMS | Encounter Summary ---
Demographics + + + | Address | [address] | | | [place] [address] | + + + | Home Phone | | + + + | Preferred Language | Unknown | + + + | Marital Status | | + + + | Yazdanism Affiliation | Unknown | + + + | Race | Unknown | + + + | Ethnic Group | Unknown | + + + Author + + + | Author | [facility] | | | and [place] | + + + | Organization | [facility] | | | and [place] | [...] Team Providers + +------+ + | Care Technology Applications Engineer Name | Role | Phone | + +------+ + PCP | Unavailable | + +------+ + Encounter Details +--------+ + + + + | Date | Type | Department | Care Team | Description | +--------+ + + + + | 01/01/ | Hospital | [facility] | [place], | | | 2009 | Encounter | MED CTR EMERGENCY | Brad Yu MD [address] | | | | | [place] [address] | [facility] | | | | | [place] | [place] [address] | | | | | [address] | [phone] | | | | | [phone] | | | +--------+ + + + [...]
--- OUTSIDE RECORDS SUMMARY | ~2020-05-03 | XMS | Encounter Summary ---
Demographics + + + | Address | [address] | | | [place] [address] | + + + | Home Phone [...] | [facility] | | | and [place] [...] Providers + +------+ + | Care Sales Operations Lead Name | Role | Phone | + +------+ + PCP | Unavailable | + +------+ + Encounter Details +--------+ + + + + | Date | Type | Department | Care Team | Description | +--------+ + + + + | 05/25/ | Hospital | [facility] | | | | 1991 | Encounter | MED CTR WOMENS | | | | | | HEALTH [address] | | | | | | [place], | | | | | | [place] [address] | | | | | | [phone] | | | +--------+ + + + [...]
--- OUTSIDE RECORDS SUMMARY | ~2020-05-03 | XMS | Encounter Summary ---
Demographics + + + | Address | [address] | | | [place] [address] | + + + | Home Phone [...] + + | Author | [place] [employer] [facility] | + + + | Organization | On License Of [facility] [employer] [facility] | + + + | Address | Unknown | + + + | Phone | Unavailable | + + + Support + + +---------+ + | Name | Relationship | Address | Phone | + + +---------+ + | Ruby Au | ECON | Unknown | | + + +---------+ + Care Team Providers + +------+ + | Care Cell Coverer Name | Role | Phone | + [...] Cerebri | | 2005 | Visit | [place] | | (Primary Dx) | | | | Neuro-Ophthalmology | | | | | | [address] [facility] | | | | | | Mailcode: PATTI | | | | | | [place] [address] | | | | | | [phone] | | | +--------+---------+ + + + [...] Brad Currie MD Neuro-Ophthalmology and Cerebrovascular Disease Computer Programming Supervisor of Ophthalmology, Neurology, and Neurosurgery documented in this encounter Plan of Treatment + + +--------+ + + | Name | Type | Priori | Associated Diagnoses | Order Schedule | | | | ty | | | + + +--------+ + + | CT VISUAL FIELD | Procedures | Routin | Pseudotumor | Ordered: 10/13/2006 | | EXAM,EXTENDED | | e | Cerebri | | + + +--------+ + + documented as of this encounter Visit Diagnoses + + | Diagnosis | + + | Pseudotumor cerebri - Primary Benign intracranial hypertension | + + documented in this encounter"
--- OUTSIDE RECORDS SUMMARY | ~2020-05-03 | XMS | Encounter Summary ---
Demographics + + + | Address | [address] | | | [place] [address] | + + + | Home Phone [...] | Organization | [facility] [...] Team Providers + +------+ + | Care Hyperion Analyst Name | Role | Phone | + +------+ + PCP | Unavailable | + +------+ + Encounter Details +--------+ + + + + | Date | Type | Department | Care Team | Description | +--------+ + + + + | 03/03/ | Emergency | [facility] | Artis Reyes DO | Pain, abdominal, | | 2012 | | MEDICAL CENTER | [address] | unknown etiology | | | | EMERGENCY CENTER | [place], [place] | | | | | [address] [facility] | [address] | | | | | [place], [place] | [phone] | | | | | [address] | | | | | | [phone] | | | +--------+ + + + [...]
--- OUTSIDE RECORDS SUMMARY | ~2020-05-03 | XMS | Encounter Summary ---
Demographics + + + | Address | [address] | | | [place] [address] | + + + | Home Phone [...] | Organization | [facility] | | | and [place] [...] Team Providers + +------+ + | Care Pediatric Nephrologist Name | Role | Phone | + +------+ + PCP | Unavailable | + +------+ + Encounter Details +--------+ + + + + | Date | Type | Department | Care Team | Description | +--------+ + + + + | 06/10/ | Hospital | [facility] | | | | 1991 | Encounter | MED CTR WOMENS | | | | | | HEALTH SV [address] | | | | | | [place], | | | | | | [place] [address] | | | | | | [phone] | | | +--------+ + + + [...]
--- OUTSIDE RECORDS SUMMARY | ~2020-05-03 | XMS | Encounter Summary ---
Demographics + + + | Address | [address] | | | [place] [address] | + + + | Home Phone [...] + + + | Author | [place] [facility] | + + + | Organization | [facility] | + + + | Address | Unknown | + + + | Phone | Unavailable | + + + Support + + +---------+ + | Name | Relationship | Address | Phone | + + +---------+ + | Ruby Au | ECON | Unknown | | + + +---------+ + Care Team Providers + +------+ + | Care Die Sizer Name | Role | Phone | + +------+ + | Brenden Benavides MD | PCP | | + +------+ + Encounter Details +--------+ + + + + | Date | Type | Department | Care Team | Description | +--------+ + + + + | 02/22/ | Telephone | [facility] | Hay Hughes MD 7145 | | | 2006 | | [place] | [place] [address] | | | | | Oculoplastics at | [place], [place] | | | | | [address] | [address] | | | | | [address] | [phone] | | | | | Eye [place] | | | | | | [address] | | | | | | [place] [address] | | | | | | [phone] | | | +--------+ + + + [...]
--- OUTSIDE RECORDS SUMMARY | ~2020-05-03 | XMS | Encounter Summary ---
Demographics + + + | Address | [address] | | | [place] [address] | + + + | Home Phone [...] | Organization | [facility] | | | and [place] [...] Team Providers + +------+ + | Care Claims Coordinator Name | Role | Phone | + +------+ + PCP | Unavailable | + +------+ + Encounter Details +--------+ + + + + | Date | Type | Department | Care Team | Description | +--------+ + + + + | 04/18/ | Hospital | [facility] | | | | 1991 | Encounter | MED CTR EMERGENCY | | | | | | CENTER [address] | | | | | | [place] | | | | | | [address] | | | | | | [phone] | | | +--------+ + + + [...]
--- OUTSIDE RECORDS SUMMARY | ~2020-05-03 | XMS | Encounter Summary ---
Demographics + + + | Address | [address] | | | [place] [address] | + + + | Home Phone [...] + + + | Author | [place] [employer] [facility] | + + + | Organization | [facility] | + + + | Address | Unknown | + + + | Phone | Unavailable | + + + Support + + +---------+ + | Name | Relationship | Address | Phone | + + +---------+ + | Ruby Au | ECON | Unknown | | + + +---------+ + Care Team Providers + +------+ + | Care Veterans Contact Representative Name | Role | Phone | [...] | | | | | hypertension | [place], [place] | [place], [place] | | | | | Procedures | [address] | [address] | | | | | REQUEST TO | Phone: | Phone: | | | | | SURGERY | [phone] | [phone] | | | | | JEWISH THOUGHT PROFESSOR | Fax: | Fax: | | | | | IN INSTALL | [phone] | [phone] | | | | | SPINAL | [...] [facility] [address] | [address] | | | | | Ave Mailcode: CH8N | [place], [place] | | | | | [facility] | [address] | | | | | and [place], | [phone] | | | | | [facility] | | | | | | Floor [place], [place] | | | | | | [address] | | | | | | [phone] | | | +--------+ + + + [...]
--- OUTSIDE RECORDS SUMMARY | ~2020-05-03 | XMS | Encounter Summary ---
Demographics + + + | Address | [address] | | | [place] [address] | + + + | Home Phone | | + + + | Preferred Language | Unknown | + + + | Marital Status | | + + + | Gnosticism Affiliation | NON | + + + | Race | or | + + + | Ethnic Group | Not or | + + + Author + + + | Author | [place] [employer] [facility] | + + + | Organization | [facility] [employer] [facility] [...] Team Providers + +------+ + | Care Structural Steel Trades Worker Name | Role | Phone | + +------+ + | Brenden Benavides MD | PCP | | + +------+ + Encounter Details +--------+ + + + + | Date | Type | Department | Care Team | Description | +--------+ + + + + | 01/05/ | Telephone | [facility] | Brad Currie MD | | | 2006 | | [place] | | | | | | Neuro-Ophthalmology | | | | | | [address] [facility] | | | | | | Mailcode: PATTI | | | | | | [place] [address] | | | | | | [phone] | | | +--------+ + + + [...]
--- OUTSIDE RECORDS SUMMARY | ~2020-05-03 | XMS | Encounter Summary ---
Demographics + + + | Address | [address] | | | [place] [address] | + + + | Home Phone [...] + + + | Author | [place] [employer] [facility] | + + + | Organization | [facility] [facility] [...] Team Providers + +------+ + | Care Chaser Helper Name | Role | Phone | [...] | Headache | | 2005 | | [place]/Ophthalmol | MD Jordin | | | | | leon at [facility] [address] | | | | | | [address] [place] Mailcode: | | | | | | CH11P | | | | | | Health and Healing, | | | | | | Building | | | | | | Floor [place], [place] | | | | | | [address] | | | | | | [phone] | | | +--------+ + + + [...]
--- OUTSIDE RECORDS SUMMARY | ~2020-05-03 | XMS | Encounter Summary ---
Demographics + + + | Address | [address] | | | [place] [address] | + + + | Home Phone [...] + | Organization | [facility] [...] Team Providers + +------+ + | Care Pickling Operator Name | Role | Phone | + +------+ + PCP | Unavailable | + +------+ + Encounter Details +--------+ + + + + | Date | Type | Department | Care Team | Description | +--------+ + + + + | 07/30/ | Hospital | [facility] | | | | 2008 - | Encounter | MED CTR MED ONC | | | | | | [address] | | | | 08/02/ | | [place] [address] | | | | 2008 | | [phone] | | | +--------+ + + + [...]
--- OUTSIDE RECORDS SUMMARY | ~2020-05-03 | XMS | Encounter Summary ---
Demographics + + + | Address | [address] | | | [place] [address] | + + + | Home Phone | | + + + | Preferred Language | Unknown | + + + | Marital Status | | + + + | Yarsanism Affiliation | Unknown | + + + | Race | Unknown | + + + | Ethnic Group | Unknown | + + + Author + + + | Author | [facility] | | | and [place] | + + + | Organization | [facility] | | [...] Team Providers + +------+ + | Care Ski Edge Painter Name | Role | Phone | + +------+ + PCP | Unavailable | + +------+ + Encounter Details +--------+ + + + + | Date | Type | Department | Care Team | Description | +--------+ + + + + | 09/20/ | Hospital | [facility] | | | | 1991 | Encounter | MED CTR WOMENS | | | | | | HEALTH SV [address] | | | | | | [place], | | | | | | [place] [address] | | | | | | [phone] | | | +--------+ + + + [...]
--- OUTSIDE RECORDS SUMMARY | ~2020-05-03 | XMS | Encounter Summary ---
Demographics + + + | Address | [address] | | | [place] [address] | + + + | Home Phone [...] + + + | Author | [place] [employer] [facility] | + + + | Organization | [facility] | + + + | Address | Unknown | + + + | Phone | Unavailable | + + + Support + + +---------+ + | Name | Relationship | Address | Phone | + + +---------+ + | Ruby Au | ECON | Unknown | | + + +---------+ + Care Team Providers + +------+ + | Care Loss Prevention And Safety Manager Name | Role | Phone | [...] | | | Ave Mailcode: CH8N | [place], [place] | | | | | [facility] | [address] | | | | | and Healing, | [phone] | | | | | [facility] | | | | | | Floor [place], [place] | | | | | | [address] | | | | | | [phone] | | | +--------+ + + + [...]
--- OUTSIDE RECORDS SUMMARY | ~2020-05-03 | XMS | Encounter Summary ---
Demographics + + + | Address | [address] | | | [place] [address] | + + + | Home Phone | | + + + | Preferred Language | Unknown | + + + | Marital Status | | + + + | Caodaism Affiliation | Unknown | + + + | Race | Unknown | + + + | Ethnic Group | Unknown | + + + Author + + + | Author | [facility] | | | and [place] | + + + | Organization | [facility] | | | and [place] [...] Team Providers + +------+ + | Care Cv Tech Name | Role | Phone | + +------+ + PCP | Unavailable | + +------+ + Encounter Details +--------+ + + + + | Date | Type | Department | Care Team | Description | +--------+ + + + + | 09/30/ | Hospital | [facility] | | | | 1990 | Encounter | MED CTR EMERGENCY | | | | | | CENTER [address] | | | | | | [place] | | | | | | [address] | | | | | | [phone] | | | +--------+ + + + [...]
--- OUTSIDE RECORDS SUMMARY | ~2020-05-03 | XMS | Encounter Summary ---
Demographics + + + | Address | [address] | | | [place] [address] | + + + | Home Phone [...] + + + | Author | [place] [employer] [facility] | + + + | Organization | [facility] | + + [...] Providers + +------+ + | Care Corporate Scheduler Name | Role | Phone | + +------+ + | Brenden Benavides MD | PCP | | + +------+ + Reason for Visit + + + | Reason | Comments | + + + | Eye examination | | + + + Encounter Details +--------+---------+ + + + | Date | Type | Department | Care Team | Description | +--------+---------+ + + + | 11/30/ | Office | [facility] | | Pseudotumor Cerebri | | 2006 | Visit | [place] | | | | | | Photography at | | | | | | [address] | | | | | | [address] | | | | | | Eye [place], 4th | | | | | | floor [place], [place] | | | | | | [address] | | | +--------+---------+ + + + [...] + + documented as of this encounter Jimena Obrien - 11/30/2006 3:16 PM DINOAnnabella Au was seen in the [facility] [place] Photography/Ultrasound Department today, 11/30/2006, for ultrasound OU The ultrasound did not reveal any echographic evidence of bilateral optic nerve drusen,kaminski nayeli both optic nerve heads are elevated.The retrobulbar optic nerves appear thickened with a n echo pattern characteristic of subarachnoid fluid. documented in this encounter Plan of Treatment Not on filedocumented as of this encounter Visit Diagnoses + + | Diagnosis | + + | Pseudotumor cerebri Benign intracranial hypertension | + + documented in this encounter"
--- OUTSIDE RECORDS SUMMARY | ~2020-05-03 | XMS | Encounter Summary ---
Demographics + + + | Address | [address] | | | [place] [address] | + + + | Home Phone [...] + + + | Author | [place] [employer] [facility] | + + + | Organization | [facility] [employer] [facility] | + + + | Address | Unknown | + + + | Phone | Unavailable | + + + Support + + +---------+ + | Name | Relationship | Address | Phone | + + +---------+ + | Ruby Au | ECON | Unknown | | + + +---------+ + Care Team Providers + +------+ + | Care Depot Agent Name | Role | Phone | [...] Refill Request | | 2007 | | [facility] | [place] | | | | | and Healing [address] | Neurosurgery [address] | | | | | [address] Mailcode: | [address] | | | | | CH[address] [facility] | [place], [place] | | | | | Health and Healing, | [address] | | | | | Building | | | | | | Floor [place], [place] | | | | | | [address] | | | | | | [phone] | | | +--------+--------+ + + + [...]
--- OUTSIDE RECORDS SUMMARY | ~2020-05-03 | XMS | Encounter Summary ---
Demographics + + + | Address | [address] | | | [place] [address] | + + + | Home Phone [...] + + + | Author | [place] [employer] [facility] | + + + | Organization | [facility] | + + + | Address | Unknown | + + + | Phone | Unavailable | + + + Support + + +---------+ + | Name | Relationship | Address | Phone | + + +---------+ + | Ruby Au | ECON | Unknown | | + + +---------+ + Care Team Providers + +------+ + | Care Materials Planning Manager Name | Role | Phone | + +------+ + | Yeison Simms MD | PCP | Unavailable | + +------+ + Encounter Details +--------+--------+ + + + | Date | Type | Department | Care Team | Description | +--------+--------+ + + + | 09/06/ | Refill | Neurosurgery at | [place]iki [place], | | | 2007 | | [facility] | [place] [facility] | | | | | and Healing [address] | Neurosurgery [address] | | | | | [address] Mailcode: | [address] | | | | | CH[facility] | [place], [place] | | | | | Health and Healing, | [address] | | | | | Building | | | | | | Floor [place], [place] | | | | | | [address] | | | | | | [phone] | | | +--------+--------+ + + + [...]
--- OUTSIDE RECORDS SUMMARY | ~2020-05-03 | XMS | Encounter Summary ---
Demographics + + + | Address | [address] | | | [place] [address] | + + + | Home Phone | | + + + | Preferred Language | Unknown | + + + | Marital Status | | + + + | Adventist Affiliation | Unknown | + + + | Race | Unknown | + + + | Ethnic Group | Unknown | + + + Author + + + | Author | [facility] | | | and [place] | + + + | Organization | [facility] [...] Providers + +------+ + | Care Manager Retail Sales Name | Role | Phone | + +------+ + PCP | Unavailable | + +------+ + Encounter Details +--------+ + + + + | Date | Type | Department | Care Team | Description | +--------+ + + + + | 10/18/ | Hospital | [facility] | | | | 1991 | Encounter | MED CTR WOMENS | | | | | | HEALTH SV [address] | | | | | | [place], | | | | | | [place] [address] | | | | | | [phone] | | | +--------+ + + + [...]
--- OUTSIDE RECORDS SUMMARY | ~2020-05-03 | XMS | Encounter Summary ---
Demographics + + + | Address | [address] | | | [place] [address] | + + + | Home Phone [...] + + + | Author | [place] [employer] [facility] | + + + | Organization | [facility] [employer] [facility] | + + + | Address | Unknown | + + + | Phone | Unavailable | + + + Support + + +---------+ + | Name | Relationship | Address | Phone | + + +---------+ + | Ruby Au | ECON | Unknown | | + + +---------+ + Care Team Providers + +------+ + | Care Gas Charger Name | Role | Phone | [...] | | [address] Mailcode:[address] | [place], | | | | | [place] | [place] [address] | | | | | [place], [place] | | | | | | [address] | | | | | | [phone] | | | +--------+ + + + [...]
--- OUTSIDE RECORDS SUMMARY | ~2020-05-03 | XMS | Encounter Summary ---
Demographics + + + | Address | [address] | | | [place] [address] | + + + | Home Phone [...] + + + | Author | [place] [employer] [facility] | + + + | Organization | [facility] [employer] [facility] | + + [...] + +------+ + | Care Community Health Program Coordinator Name | Role | Phone | [...] + + | 08/24/ | Emergency | [facility] Emergency | Tylor Mccle[place], | | | 2010 | | Department [address] | [address] | | | | | [address] | MD [address] | | | | | [facility] | [facility] [place] | | | | | [place], [place] | [place], [place] | | | | | [address] | [address] | | | | | [phone] | [phone] | | | | | | | [...] us take care of you at [facility] today. Follow up with primary care [...] Lucia | | | | | | Chirstopher 08/24/2011 | | | | | | [...] | | + +---------+ + + | [facility] DEPARTMENT OF | | | | | [...]
--- OUTSIDE RECORDS SUMMARY | ~2020-05-03 | XMS | Encounter Summary ---
Demographics + + + | Address | [address] | | | [place] [address] | + + + | Home Phone [...] + + + | Author | [place] [facility] | + + + | Organization | [facility] | + + + | Address | Unknown | + + + | Phone | Unavailable | + + + Support + + +---------+ + | Name | Relationship | Address | Phone | + + +---------+ + | Ruby Au | ECON | Unknown | | + + +---------+ + Care Team Providers + +------+ + | Care Rotary Driller Prospecting Name | Role | Phone | + [...] Erroneous Encounter | | 2007 | | [facility] | [place] [facility] | - Disregard | | | | and Healing [address] | Neurosurgery [address] | | | | | [address] Mailcode: | [address] | | | | | CH[address] Center for | [place], [place] | | | | | Health and Healing, | [address] | | | | | Building [address], | | | | | | Floor [place], [place] | | | | | | [address] | | | | | | [phone] | | | +--------+--------+ + + + [...]
--- OUTSIDE RECORDS SUMMARY | ~2020-05-03 | XMS | Encounter Summary ---
Demographics + + + | Address | [address] | | | [place] [address] | + + + | Home Phone [...] Organization | [facility] | | | and [place] [...] Team Providers + +------+ + | Care Trial Lawyer Name | Role | Phone | + [...] | | | [place] | [address] | | | | | [address] | [phone] | | | | | [phone] | | | +--------+ + + + [...]
--- OUTSIDE RECORDS SUMMARY | ~2020-05-03 | XMS | Encounter Summary ---
Demographics + + + | Address | [address] | | | [place] [address] | + + + | Home Phone [...] + + | Author | [place] [employer] [facility] | + + + | Organization | [facility] | + + + | Address | Unknown | + + + | Phone | Unavailable | + + + Support + + +---------+ + | Name | Relationship | Address | Phone | + + +---------+ + | Ruby Au | ECON | Unknown | | + + +---------+ + Care Team Providers + +------+ + | Care Tool Worker Name | Role | Phone | [...] Erroneous Encounter | | 2007 | | [place] for [facility] | [facility] | - Disregard | | | | and Healing [address] | Neurosurgery [address] | | | | | [address] Mailcode: | [address] | | | | | CH[address] Center for | [place], [place] | | | | | Health and Healing, | [address] | | | | | Building [address], [address]th | | | | | | Floor [place], [place] | | | | | | [address] | | | | | | [phone] | | | +--------+ + + + [...]
--- OUTSIDE RECORDS SUMMARY | ~2020-05-03 | XMS | Encounter Summary ---
Demographics + + + | Address | [address] | | | [place] [address] | + + + | Home Phone | | + + + | Preferred Language | Unknown | + + + | Marital Status | | + + + | Mu-Ism Affiliation | Unknown | + + + | Race | Unknown | + + + | Ethnic Group | Unknown | + + + Author + + + | Author | [facility] | | | and [place] | + + + | Organization | [facility] | [...] Team Providers + +------+ + | Care Warehouse Worker 2Nd Shift Name | Role | Phone | + +------+ + PCP | Unavailable | + +------+ + Encounter Details +--------+ + + + + | Date | Type | Department | Care Team | Description | +--------+ + + + + | 04/20/ | Hospital | [facility] | | | | 1995 | Encounter | [facility] | | | | | | CENTER [address] | | | | | | [place] | | | | | | [address] | | | | | | [phone] | | | +--------+ + + + [...]
--- OUTSIDE RECORDS SUMMARY | ~2020-05-03 | XMS | Encounter Summary ---
Demographics + + + | Address | [address] | | | [place] [address] | + + + | Home Phone [...] + + + | Author | [place] [facility] | + + + | Organization | [facility] | + + + | Address | Unknown | + + + | Phone | Unavailable | + + + Support + + +---------+ + | Name | Relationship | Address | Phone | + + +---------+ + | Ruby Au | ECON | Unknown | | + + +---------+ + Care Team Providers + +------+ + | Care Screw Machine Adjuster Automatic Name | Role | Phone | + [...] | | | | | | [address], [place] | | | | | | [address] | | | | | | [phone] | | | +--------+ + + + [...]
--- OUTSIDE RECORDS SUMMARY | ~2020-05-03 | XMS | Encounter Summary ---
Demographics + + + | Address | [address] | | | [place] [address] | + + + | Home Phone [...] + + + | Author | [place] [employer] [facility] | + + + | Organization | [facility] [employer] [facility] | + [...] Team Providers + +------+ + | Care Blacksmith Helper Name | Role | Phone | [...] Neurosurgery [address] | | | | | [facility] | [address] | | | | | and Healing, | [place], [place] | | | | | Building | [address] | | | | | Floor [place], [place] | | | | | | [address] | | | | | | [phone] | | | +--------+---------+ + + + [...]
--- OUTSIDE RECORDS SUMMARY | ~2020-05-03 | XMS | Encounter Summary ---
Demographics + + + | Address | [address] | | | [place] [address] | + + + | Home Phone [...] + + + | Author | [place] [employer] [facility] | + + + | Organization | [facility] [employer] [facility] | + + + | Address | Unknown | + + + | Phone | Unavailable | + + + Support + + +---------+ + | Name | Relationship | Address | Phone | + + +---------+ + | Ruby Au | ECON | Unknown | | + + +---------+ + Care Team Providers + +------+ + | Care Diesel Fleet Mechanic Name | Role | Phone | [...] Cerebri | | 2006 | Visit | [facility] at | Bud Alexander MD [address] | (Primary Dx) | | | | [facility] [address] | [address] | | | | | [address] | [place], [place] | | | | | Eye [place] | [address] | | | | | [place], [place] | [phone] | | | | | [address] | [...] Gale - 11/30/2006 3:40 PM PSTAnnabella Jt Au was seen in the [facility] [...]
--- OUTSIDE RECORDS SUMMARY | ~2020-05-03 | XMS | Encounter Summary ---
Demographics + + + | Address | [address] | | | [place] [address] | + + + | Home Phone [...] | Organization | [facility] | | | and [place] | [...] Team Providers + +------+ + | Care Compotype Operator Name | Role | Phone | + +------+ + PCP | Unavailable | + +------+ + Encounter Details +--------+ + + + + | Date | Type | Department | Care Team | Description | +--------+ + + + + | 04/24/ | Hospital | [facility] | | | | 2004 | Encounter | MED CTR EMERGENCY | | | | | | CENTER [address] | | | | | | [place] | | | | | | [address] | | | | | | [phone] | | | +--------+ + + + [...]
--- OUTSIDE RECORDS SUMMARY | ~2020-05-03 | XMS | Encounter Summary ---
Demographics + + + | Address | [address] | | | [place] [address] | + + + | Home Phone [...] + + | Author | [place] [employer] [facility] | + + + | Organization | [facility] [employer] [facility] [...] Team Providers + +------+ + | Care Licensed Practical Vocational Nurse Name | Role | Phone | [...] | Closed | | | | | [facility] [address] | | | | | | | Proceduralcar | | | | | | | e [address] | | | | | | | [address] | | | | | | | [address] | | | | | | | [facility] | | | | | | | Hospital | | | | | | | [place], [place] | | | | | | | [address] | | | | | | | Phone: | | | | | | | [phone] | | | | | | | Fax: | | | | | | | [phone] | +--------+--------+ + + + + Encounter Details +--------+ + + + + | Date | Type | Department | Care Team | Description | +--------+ + + + + | 05/07/ | Hospital | [facility] [address] | Windy [place], | | | 2007 | Encounter | [address] | MD [place] | | | | | [facility] [facility] | MD Holden,PhD | | | | | [place] | | | | | | [address] | | | | | | [phone] | | | +--------+ + + + [...] + + + | Blood Pressure | 133/79 | 05/07/2008 1:45 PM | | | | | PDT | | + + + + + | Pulse | 89 | 05/07/2008 1:45 PM | | | | | PDT | | + + + + + | Temperature | 36.5 C (97.7 F) | 05/07/2008 7:08 AM | | | | | PDT | | + + + + + | Respiratory Rate | 20 | 05/07/2008 1:45 PM | | | | | PDT | | + + + + + | Oxygen Saturation | 95% | 05/07/2008 1:45 PM | | | | | PDT | | + + + + + | Inhaled Oxygen | - | - | | | Concentration | | | | + + + + + | Weight | 115.7 kg (255 lb) | 05/07/2008 6:41 AM | | | | | PDT | | + + + + + | Height | 165.1 cm (5' 5") | 05/07/2008 6:41 AM | | | | | PDT | | + + + + + | Body Mass Index | 42.43 | 05/07/2008 6:41 AM | | | | | PDT | | + + + + + documented in this encounter Discharge Instructions Instructions [place] - 05/07/2008 Patient given written and verbal discharge instruc tions. Questions answered and patient verbalized understanding. documented in this encounter Plan of Treatment Not on filedocumented as of this encounter Procedures + +--------+ + + + | Procedure Name | Priori | Date/Time | Associated Diagnosis | Comments | | | ty | | | | + +--------+ + + + | ORDERS OTHER | | 05/07/2008 | | Results for this | | | | 3:15 PM | | procedure are in the | | | | PDT | | results section. | + +--------+ + + + | RADIOLOGY | | 05/07/2008 | | Results for this | | | | 3:15 PM | | procedure are in the | | | | PDT | | results section. | + +--------+ + + + | CEREBRAL 3 VESSELS | Routin | 05/07/2008 | | Results for this | | | e | 10:13 AM | | procedure are in the | | | | PDT | | results section. | + +--------+ + + + documented in this encounter Results ORDERS OTHER (05/07/2008 3:15 PM PDT) + + + | Narrative | Performed At | + + + | | | + + + + + | Procedure Note | + + | Skyla, Faculty - 05/07/2008 3:15 PM PDT | + + RADIOLOGY (05/07/2008 3:15 PM PDT) + + + | Narrative | Performed At | + + + | | | + + + + + | Procedure Note | + + | Other, Faculty - 05/07/2008 3:15 PM PDT | + + CEREBRAL 3 VESSELS (05/07/2008 10:13 AM PDT) + + + + + + | Component | Value | Ref Range | Performed | Pathologist | | | | | At | Signature | + + + + + + | CEREBRAL 3 | NEURORANGIOGRAM | | | | | VESSELS | REPORTDate of operation: | | | | | | May 07, 2008Clinical | | | | | | history: 32 year-old | | | | | | female with persistent | | | | | | headaches,papilledema.Fi | | | | | | ndings: The right and | | | | | | left common carotid | | | | | | arteries are | | | | | | withinnormal limits with | | | | | | no significant | | | | | | atheromatous disease, | | | | | | dissection,or other | | | | | | abnormality.The right | | | | | | internal carotid | | | | | | arteriogram demonstrates | | | | | | normalvascularity with | | | | | | no evidence for | | | | | | aneurysm, vascular | | | | | | malformation, orother | | | | | | abnormality. There is no | | | | | | evidence for vasospasm. | | | | | | On delayedimaging, the | | | | | | venous phase | | | | | | demonstrates absence or | | | | | | hypoplasia of theantrum | | | | | | on the third of the | | | | | | superior sagittal sinus | | | | | | with thisdistribution | | | | | | being drained by | | | | | | compensatory enlarged | | | | | | cortical veins.Remainder | | | | | | of the superior | | | | | | sagittal sinus is patent | | | | | | to the torcula.Venous | | | | | | out flow from the | | | | | | torcula is bilateral, | | | | | | right hypoplastic | | | | | | lefttransverse sinus | | | | | | which demonstrates a | | | | | | focal narrowing in | | | | | | itsmidportion, and then | | | | | | drains unremarkably | | | | | | through a patent sigmoid | | | | | | andleft internal | | | | | | jugular vein. The | | | | | | predominant venous | | | | | | outflow howeveris to the | | | | | | right transverse sinus | | | | | | which demonstrates a | | | | | | focal,high-grade, | | | | | | approximate 80% | | | | | | narrowing in its | | | | | | midportion and | | | | | | thenretains a normal | | | | | | caliber to the remainder | | | | | | the transverse sinus, | | | | | | rightsigmoid sinus and | | | | | | internal jugular | | | | | | vein..The left internal | | | | | | carotid arteriogram | | | | | | demonstrates normal | | | | | | vascularitywith no | | | | | | evidence for aneurysm, | | | | | | vascular malformation, | | | | | | or otherabnormality. | | | | | | There is no evidence for | | | | | | vasospasm. On delayed | | | | | | imaging,the venous phase | | | | | | demonstrates similar | | | | | | findings, with occlusion | | | | | | of theantero-one third | | | | | | of the superior sagittal | | | | | | sinus, predominate | | | | | | venousoutflow to the | | | | | | right transverse sinus | | | | | | which demonstrates a | | | | | | high-gradefocal | | | | | | narrowing in its | | | | | | midportion. Some | | | | | | venous drainage is | | | | | | through ahypoplastic | | | | | | left transverse sinus, | | | | | | also with a mid | | | | | | transverse | | | | | | sinusnarrowing..Direct | | | | | | sinus venography | | | | | | performed at the level | | | | | | of the | | | | | | torculademonstrates | | | | | | better definition to the | | | | | | venous abnormalities, | | | | | | withretrograde filling | | | | | | of the superior sagittal | | | | | | sinus most likely due | | | | | | tovenous outflow | | | | | | obstruction..Pressure | | | | | | measurements were | | | | | | obtained with a Envoy | | | | | | catheter in theright | | | | | | internal jugular vein | | | | | | and by catheterization | | | | | | of the duralsinuses with | | | | | | the distal tip of a | | | | | | high flow renegade in | | | | | | the leftinternal jugular | | | | | | vein, and then pulled | | | | | | back into the Envoy | | | | | | catheterto the dural | | | | | | sinuses.Pressure | | | | | | measurements are as | | | | | | follows, in mm Hg, mean | | | | | | venous:Right internal | | | | | | jugular vein: 2 mmLeft | | | | | | internal jugular vein: 3 | | | | | | mmleft transverse | | | | | | sinus: 6 mmleft | | | | | | transverse sinus, | | | | | | midportion, above | | | | | | stenosis: 18 mmtorcula: | | | | | | 22 mmright transverse | | | | | | sinus, above stenosis: | | | | | | 22 mmright transverse | | | | | | sinus, below stenosis: 3 | | | | | | mmTotal venous gradient | | | | | | from the torcula to the | | | | | | right jugular | | | | | | measuredof the 19 mm mm | | | | | | Hg.The the right common | | | | | | femoral arteriogram | | | | | | performed due to | | | | | | difficultyof access is | | | | | | normal with no | | | | | | significant atheromatous | | | | | | disease and isof | | | | | | appropriate size for | | | | | | Starclose.Impression:Num | | | | | | ashley one: 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 | | | | | | Dr. Stanford: | | | | | | ModerateDuration of | | | | | | procedure: 60 | | | | | | minutes.Operation No. 1: | | | | | | Surgical | | | | | | catheterization of the | | | | | | right femoral | | | | | | arteryOperation No. 2: | | | | | | Catheterization of the | | | | | | thoracic aortic | | | | | | archOperation No. 3: | | | | | | Catheterization of the | | | | | | left subclavian | | | | | | arteryOperation No. 4: | | | | | | Selective | | | | | | catheterization of the | | | | | | left vertebralartery and | | | | | | angiographyOperation | | | | | | No. 5: Catheterization | | | | | | of the left common | | | | | | carotid arteryand | | | | | | angiography of the | | | | | | cervical region, FIJIAN and | | | | | | lateral | | | | | | projectionsOperation No. | | | | | | 6: Selective | | | | | | catheterization of left | | | | | | internal carotidartery | | | | | | and angiography of the | | | | | | intracranial | | | | | | circulation,AP and | | | | | | lateral | | | | | | projections.Operation | | | | | | No. 7: Catheterization | | | | | | of the innominate | | | | | | arteryOperation No. 8: | | | | | | Catheterization of right | | | | | | common carotid | | | | | | arteryangiography of the | | | | | | cervical region, COOPER | | | | | | and lateral | | | | | | projections.Operation | | | | | | No. 9: Selective | | | | | | catheterization of right | | | | | | internal carotidartery | | | | | | and angiography of the | | | | | | intracranial | | | | | | circulation, AP | | | | | | andLateral | | | | | | projections..Operation | | | | | | No. 10: Angiogram Right | | | | | | common femoral artery, | | | | | | RAOprojection.Operation | | | | | | No. 11: Puncture of | | | | | | right common femoral | | | | | | vein with openneedle, | | | | | | Bentson | | | | | | guidewire.Operation No. | | | | | | 12: Catheterization of | | | | | | right internal jugular | | | | | | vein with6-Mexican Envoy | | | | | | and 0.035 | | | | | | glidewire.Operation No. | | | | | | 13: Co-axial placement | | | | | | of Hi-flow Renegade, | | | | | | 0.014Synchro guide wire, | | | | | | catheterization of | | | | | | right transverse | | | | | | sinus,placement of | | | | | | micro-catheter tip at | | | | | | level of the | | | | | | Torcula.Operation No. | | | | | | 14: Sinus venography, | | | | | | power | | | | | | injection.Operation No. | | | | | | 15: Measurement of | | | | | | Pull-back pressures, | | | | | | using dualpressure | | | | | | measurements, Envoy | | | | | | catheter internal | | | | | | jugular vein, and hiFlo | | | | | | renegade initially | | | | | | placed distal tip right | | | | | | internal jugular | | | | | | vein.Description of | | | | | | procedure:The patient | | | | | | was taken to the | | | | | | neuroangiography suite | | | | | | and jared supineon the | | | | | | table. A 19 gauge | | | | | | single wall puncture | | | | | | needle was | | | | | | introducedinto the right | | | | | | femoral artery. | | | | | | T4Yodebl Berenstein | | | | | | catheter wasnavigated | | | | | | over a Bentson | | | | | | guidewire. Selective | | | | | | catheterization | | | | | | wasperformed as listed | | | | | | above and digital | | | | | | subtraction angiography | | | | | | wasperformed as | | | | | | described above. | | | | | | Puncture of the | | | | | | right common femoralvein | | | | | | was then performed | | | | | | using open needle and | | | | | | Bentson guidewire. | | | | | | Theright jugular vein | | | | | | was then cantherized | | | | | | with a 6-Mexican Envoy | | | | | | andHigh flow Renegade | | | | | | microcatheter and | | | | | | Synchro guidewire | | | | | | placedthrought the | | | | | | jugular vein catheter | | | | | | and used for direct | | | | | | venography.Dual pullback | | | | | | pressure measurements | | | | | | were obtained to the | | | | | | Envoycatheter and the | | | | | | microcatheter with the | | | | | | microcatheter tip | | | | | | initiallyplaced through | | | | | | the dural sinuses and | | | | | | into the left internal | | | | | | jugularvein .. The | | | | | | arterial access was | | | | | | closed using Starclose | | | | | | device. | | | | | | was present and | | | | | | participated in the | | | | | | entire procedure | | | | | | aslisted above.STATUS | | | | | | FINAL / Dr. DENNIS | | | | | | WINDY | | | | + + + + + + + + | Specimen | + + | | + + + +---------+ + + | Performing | Address | City/State/Zipcode | Phone Number | | Organization | | | | + +---------+ + + | [place] [facility] | | | | | [facility] | | | | + +---------+ + + documented in this encounter Visit Diagnoses Not on filedocumented in this encounter Administered Medications + +--------+ +--------+------+------+ | Medication Order | MAR | Action | Dose | Rate | Site | | | Action | Date | | | | + +--------+ +--------+------+------+ | fentanyl (aka SUBLIMAZE) | Given | 05/07/20 | 50 mcg | | | | injection 1 dose, Starting Tue | | 08 12:45 | | | | | 05/07/08 at 1256, Until Tue | | PM PDT | | | | | 05/07/08 at 1256 | | | | | | + +--------+ +--------+------+------+ +---+---+ | | | +---+---+ + +-------+ +---------+---+---+ | hydrocodone-acetaminophen (aka | Given | 05/07/20 | 2 | | | | VICODIN) 5-500 mg 1 dose, | | 08 8:25 | tablets | | | | Starting 05/07/08 at 0832, | | AM PDT | | | | | Until 05/07/08 at 0835 | | | | | | + +-------+ +---------+---+---+ +---+---+ | | | +---+---+ + +-------+ +------+---+---+ | morphine injection 1 dose, | Given | 05/07/20 | 2 mg | | | | Starting 05/07/08 at 1256, | | 08 2:15 | | | | | Until 05/07/08 at 1431 | | PM PDT | | | | + +-------+ +------+---+---+ +---+---+ | | | +---+---+ + +-------+ +-------+---+---+ | oxycodone (immediate release) | Given | 05/07/20 | 15 mg | | | | (aka ROXICODONE) tablet 1 dose, | | 08 12:56 | | | | | Starting 05/07/08 at 1253, | | PM PDT | | | | | Until 05/07/08 at 1256 | | | | | | + +-------+ +-------+---+---+ +---+---+ | | | +---+---+ documented in this encounter
--- OUTSIDE RECORDS SUMMARY | ~2020-05-03 | XMS | Encounter Summary ---
Demographics + + + | Address | [address] | | | [place] [address] | + + + | Home Phone [...] + + + | Author | [place] [employer] [facility] | + + + | Organization | [facility] [employer] [facility] | + + + | Address | Unknown | + + + | Phone | Unavailable | + + + Support + + +---------+ + | Name | Relationship | Address | Phone | + + +---------+ + | Ruby Au | ECON | Unknown | | + + +---------+ + Care Team Providers + +------+ + | Care Lay Out Maker Name | Role | Phone | [...] | | | [address] Mailcode: [id number] | [place], [place] | | | | | [facility] | [address] | | | | | and Healing, | [phone] | | | | | [facility] | | | | | | Floor [place], [place] | | | | | | [address] | | | | | | [phone] | | | +--------+ + + + [...]
--- OUTSIDE RECORDS SUMMARY | ~2020-05-03 | XMS | Encounter Summary ---
Demographics + + + | Address | [address] | | | [place] [address] | + + + | Home Phone [...] + + + | Author | [place] [employer] [facility] | + + + | Organization | [facility] [employer] [facility] | + + + | Address | Unknown | + + + | Phone | Unavailable | + + + Support + + +---------+ + | Name | Relationship | Address | Phone | + + +---------+ + | Ruby Au | ECON | Unknown | | + + +---------+ + Care Team Providers + +------+ + | Care Fertilizer Mixer Name | Role | Phone | [...] | | [address] | [place], | | | | | [facility] | [place] [address] | | | | | [place], [place] | | | | | | [address] | | | | | | [phone] | | | +--------+ + + + [...]
--- OUTSIDE RECORDS SUMMARY | ~2020-05-03 | XMS | Encounter Summary ---
Demographics + + + | Address | [address] | | | [place] [address] | + + + | Home Phone [...] + + + | Author | [place] [employer] [facility] | + + + | Organization | [facility] [employer] [facility] | + + + | Address | Unknown | + + + | Phone | Unavailable | + + + Support + + +---------+ + | Name | Relationship | Address | Phone | + + +---------+ + | Ruby Au | ECON | Unknown | | + + +---------+ + Care Team Providers + +------+ + | Care Media Production Support Manager Name | Role | Phone | + +------+ + | Brenden Benavides MD | PCP | | + +------+ + Encounter Details +--------+ + + + + | Date | Type | Department | Care Team | Description | +--------+ + + + + | 09/28/ | Documentati | [facility] | Brad Currie MD | | | 2006 | on | [place] | | | | | | Neuro-Ophthalmology | | | | | | [address] | | | | | | Mailcode: [address] | | | | | | [place] [address] | | | | | | [phone] | | | +--------+ + + + [...]
--- OUTSIDE RECORDS SUMMARY | ~2020-05-03 | XMS | Encounter Summary ---
Demographics + + + | Address | [address] | | | [place] [address] | + + + | Home Phone [...] + + | Author | [place] [employer] [facility] | + + + | Organization | [facility] [email or web address] [facility] | + + + | Address | Unknown | + + + | Phone | Unavailable | + + + Support + + +---------+ + | Name | Relationship | Address | Phone | + + +---------+ + | Ruby Au | ECON | Unknown | | + + +---------+ + Care Team Providers + +------+ + | Care Infrastructure Engineer Name | Role | Phone | + +------+ + | rBenden Benavides MD | PCP | | + [...] Cerebri | | 2006 | Visit | [facility] at | Bud Alexander MD [address] | (Primary Dx) | | | | [facility] [address] | [address] | | | | | [address] | [place], [place] | | | | | [facility] [place] | [address] | | | | | [place], [place] | [phone] | | | | | [address] | [...]
--- OUTSIDE RECORDS SUMMARY | ~2020-05-03 | XMS | Encounter Summary ---
Demographics + + + | Address | [address] | | | [place] [address] | + + + | Home Phone [...] + + + | Author | [place] [employer] [facility] | + + + | Organization | [facility] [employer] [facility] | + + + | Address | Unknown | + + + | Phone | Unavailable | + + + Support + + +---------+ + | Name | Relationship | Address | Phone | + + +---------+ + | Ruby Au | ECON | Unknown | | + + +---------+ + Care Team Providers + +------+ + | Care Battery Builder Name | Role | Phone | + [...] Telephone follow-up | | 2015 | | [place] | [address] | | | | | Neuro-Ophthalmology | [place], [place] | | | | | at [facility] [address] | [address] | | | | | Ave Mailcode: [facility] | [phone] | | | | | [facility] | | | | | | and [address], | | | | | | | | | | | | Floor [place], [place] | | | | | | [address] | | | | | | [phone] | | | +--------+ + + + [...]
--- OUTSIDE RECORDS SUMMARY | ~2020-05-03 | XMS | Encounter Summary ---
Demographics + + + | Address | [address] | | | [place] [address] | + + + | Home Phone | | + + + | Preferred Language | Unknown | + + + | Marital Status | | + + + | Buddhist Affiliation | Unknown | + + + | Race | Unknown | + + + | Ethnic Group | Unknown | + + + Author + + + | Author | [facility] | | | and [place] | + + + | Organization | [facility] | [...] Team Providers + +------+ + | Care Rug Inspector Helper Name | Role | Phone | + +------+ + PCP | Unavailable | + +------+ + Encounter Details +--------+ + + + + | Date | Type | Department | Care Team | Description | +--------+ + + + + | 10/25/ | Hospital | [facility] | | | | 1991 | Encounter | MED CTR EMERGENCY | | | | | | CENTER [address] | | | | | | [place] | | | | | | [address] | | | | | | [phone] | | | +--------+ + + + [...]
--- OUTSIDE RECORDS SUMMARY | ~2020-05-03 | XMS | Encounter Summary ---
Demographics + + + | Address | [address] | | | [place] [address] | + + + | Home Phone [...] + + + | Author | [place] [employer] [facility] | + + + | Organization | [facility] [employer] [facility] [...] Team Providers + +------+ + | Care Spa Manager/Esthetician Name | Role | Phone | + +------+ + PCP | Unavailable | + +------+ + Reason for Visit +--------+ + | Reason | Comments | +--------+ + | Other | poss shunt malfunction | +--------+ + Encounter Details +--------+ + + + + | Date | Type | Department | Care Team | Description | +--------+ + + + + | 06/24/ | Emergency | [facility] Emergency | | | | 2010 | | Department [address] | | | | | | [address] | | | | | | [facility] | | | | | | [place], [place] | | | | | | [address] | | | | | | [phone] | | | +--------+ + + + [...]
--- OUTSIDE RECORDS SUMMARY | ~2020-05-03 | XMS | Encounter Summary ---
Demographics + + + | Address | [address] | | | [place] [address] | + + + | Home Phone | | + + + | Preferred Language | Unknown | + + + | Marital Status | | + + + | Samaritan Affiliation | Unknown | + + + | Race | Unknown | + + + | Ethnic Group | Unknown | + + + Author + + + | Author | [facility] | | | and [place] | + + + | Organization | [facility] | | | and [place] [...] Team Providers + +------+ + | Care Fence Post Cutter Name | Role | Phone | + +------+ + PCP | Unavailable | + +------+ + Encounter Details +--------+ + + + + | Date | Type | Department | Care Team | Description | +--------+ + + + + | 07/19/ | Hospital | [facility] | Vern Rooney, | | | 1990 - | Encounter | MED CTR MED ONC | [address] | | | | | [address] [place] | [place] | | | 07/21/ | | [place] [address] | [address] | | | 1990 | | [phone] | | | +--------+ + + + [...]
--- OUTSIDE RECORDS SUMMARY | ~2020-05-03 | XMS | Encounter Summary ---
Demographics + + + | Address | [address] | | | [place] [address] | + + + | Home Phone [...] + + + | Author | [place] [employer] [facility] | + + + | Organization | [facility] [employer] [facility] | + [...] Providers + +------+ + | Care Metal Cleaner Name | Role | Phone | + [...] Other | | 2005 | | [facility] | FLOR[place]-Norma [address] | | | | | [address] Mailcode:OP14B | [place], [place] | | | | | [facility] | [address] | | | | | [place], [place] | | | | | | [address] | | | | | | [phone] | | | +--------+ + + + [...]
--- OUTSIDE RECORDS SUMMARY | ~2020-05-03 | XMS | Encounter Summary ---
Demographics + + + | Address | [address] | | | [place] [address] | + + + | Home Phone [...] + + + | Author | [place] [employer] [facility] | + + + | Organization | [facility] [employer] Science [facility] [...] Team Providers + +------+ + | Care Vice President Of Sales Name | Role | Phone | [...] | | | Ave Mailcode: CH8N | [place], [place] | | | | | [facility] | [address] | | | | | and Healing, | [phone] | | | | | [facility] | | | | | | Floor [place], [place] | | | | | | [address] | | | | | | [phone] | | | +--------+ + + + [...]
--- OUTSIDE RECORDS SUMMARY | ~2020-05-03 | XMS | Encounter Summary ---
Demographics + + + | Address | [address] | | | [place] [address] | + + + | Home Phone [...] | Organization | [facility] | | [...] Team Providers + +------+ + | Care Raise Driller Name | Role | Phone | + +------+ + PCP | Unavailable | + +------+ + Encounter Details +--------+ + + + + | Date | Type | Department | Care Team | Description | +--------+ + + + + | 04/24/ | Hospital | [facility] | | | | 1991 | Encounter | MED CTR EMERGENCY | | | | | | CENTER [address] | | | | | | [place] | | | | | | [address] | | | | | | [phone] | | | +--------+ + + + [...]
--- OUTSIDE RECORDS SUMMARY | ~2020-05-03 | XMS | Encounter Summary ---
Demographics + + + | Address | [address] | | | [place] [address] | + + + | Home Phone | | + + + | Preferred Language | Unknown | + + + | Marital Status | | + + + | Jewish Affiliation | Unknown | + + + | Race | Unknown | + + + | Ethnic Group | Unknown | + + + Author + + + | Author | [facility] | | | and [place] | + + + | Organization | [facility] | | | and [...] Providers + +------+ + | Care Night Guard Name | Role | Phone | + +------+ + PCP | Unavailable | + +------+ + Encounter Details +--------+ + + + + | Date | Type | Department | Care Team | Description | +--------+ + + + + | 08/12/ | Hospital | [facility] | Jenn Oreilly, | | | 2012 | Encounter | HOSPITAL EMERGENCY | [facility] [address] | | | | | CENTER [address] | [place] | | | | | [place] | [address] | | | | | [address] | | | | | | [phone] | | | +--------+ + + + [...]
--- OUTSIDE RECORDS SUMMARY | ~2020-05-03 | XMS | Encounter Summary ---
Demographics + + + | Address | [address] | | | [place] [address] | + + + | Home Phone [...] + + + | Author | [place] [employer] [facility] | + + + | Organization | [facility] [employer] [facility] | + + + | Address | Unknown | + + + | Phone | Unavailable | + + + Support + + +---------+ + | Name | Relationship | Address | Phone | + + +---------+ + | Ruby Au | ECON | Unknown | | + + +---------+ + Care Team Providers + +------+ + | Care Life Trainer Name | Role | Phone | [...] Kirk | | | | | CH[address] [facility] | [place], [place] | | | | | Health and Healing, | [address] | | | | | Building [address] | | | | | | Floor [place], [place] | | | | | | [address] | | | | | | [phone] | | | +--------+ + + + [...]
--- OUTSIDE RECORDS SUMMARY | ~2020-05-03 | XMS | Encounter Summary ---
Demographics + + + | Address | [address] | | | [place] [address] | [...] + + + | Author | [place] fake [employer] Science [facility] | + + + | Organization | [facility] [employer] Science [facility] | + [...] Team Providers + +------+ + | Care Can Washer Name | Role | Phone | [...] | | | Ave Mailcode: CH8N | [place], [place] | | | | | [facility] | [address] | | | | | and Healing, | [phone] | | | | | [facility] | | | | | | Floor [facility] [place] | | | | | | [address] | | | | | | [phone] | | | +--------+ + + + [...]
--- OUTSIDE RECORDS SUMMARY | ~2020-05-03 | XMS | Clinical Summary ---
Demographics + + + | Address | [address] | | | [place] [address] | + + + | Home Phone [...] Team Providers + +------+ + | Care Gut Snatcher Name | Role | Phone | + +------+ + | Dennis Maddox | PCP | | + +------+ + Source Comments REBECA is fully live on both [facility] and [facility] InPatient.[facility] Allergies + + + + + [...] | | | + +--------+ +--------+-------+---------+--------+ | ACCOUNT INFORMATION CLERK MEDICAID | ACCOUNT INFORMATION CLERK | xxxxxxxx | 11/28/19 | | [...] | 1975 | [phone] | [place] [address] | | | rene | | | 0 (Home) | | + +--------+ +--------+ + + Advance Directives + + + + + | Type | Date Recorded | Patient | Explanation | | | | Local Intermodal Truck Driver | | + + + + + | Advance | | | | | Directives and | | | | | Living Will | | | | + + + + + | Power of | | | | | Lead Solutions Architect | | | | + + + [...]
--- OUTSIDE RECORDS SUMMARY | ~2020-05-03 | XMS | Encounter Summary ---
Demographics + + + | Address | [address] | | | [place] [address] | + + + | Home Phone [...] Organization | [facility] | [...] Providers + +------+ + | Care Industrial Commercial Groundskeeper Name | Role | Phone | + +------+ + PCP | Unavailable | + +------+ + Encounter Details +--------+ + + + + | Date | Type | Department | Care Team | Description | +--------+ + + + + | 06/22/ | Hospital | [facility] | Yovanny Suazo, | | | 1991 | Encounter | MED CTR WOMENS | MD [address] | | | | | [facility] [address] | [address] | | | | | [place], | [place] [address] | | | | | [place] [address] | [phone] | | | | | [phone] | | | +--------+ + + + [...]
--- OUTSIDE RECORDS SUMMARY | ~2020-05-03 | XMS | Encounter Summary ---
Demographics + + + | Address | [address] | | | [place] [address] | + + + | Home Phone [...] + + + | Author | [place] [employer] [facility] | + + + | Organization | [facility] [employer]etic Science [facility] | + + + | Address | Unknown | + + + | Phone | Unavailable | + + + Support + + +---------+ + | Name | Relationship | Address | Phone | + + +---------+ + | Ruby Au | ECON | Unknown | | + + +---------+ + Care Team Providers + +------+ + | Care Associate Embalmer/Funeral Director Name | Role | Phone | [...] [address] | | | | | | [place] | Ave | | | | | | [address] | [place], [place] | | | | | | [place], | [address] | | | | | | [place] [address] | Phone: | | | | | | Phone: | [phone] | | | | | | [phone] | Fax: | | | | | | Fax: | [phone] | | | | | | [phone] | | +--------+ + + + + [...] | | | Ave Mailcode: CH8N | [place], [place] | | | | | [facility] | [address] | | | | | and Healing, | [phone] | | | | | [facility] | | | | | | Floor [place], [place] | | | | | | [address] | | | | | | [phone] | | | +--------+---------+ + + + [...] soon. I spent more than 15 minutes [id number] with the patient of which greater than 50% was sp ent counseling the patient regarding the shunt removal, indications and venous sinus stent a ngioplasty. Since her shunt is brent effective now she will need narcotics for headache and he r PCP should manage that. CASIMIRO PAYTON MD NEUROSURGERY [address] Mailcode: Ch8n [facility] [facility] [address] documented in this encou nter Plan of Treatment Not on filedocumented as of this encounter Visit Diagnoses + + | Diagnosis | + + | Pseudotumor cerebri - Primary Benign intracranial hypertension | + + documented in this encounter
--- OUTSIDE RECORDS SUMMARY | ~2020-05-03 | XMS | Encounter Summary ---
Demographics + + + | Address | [address] | | | [place] [address] | + + + | Home Phone [...] | Organization | [facility] [...] Team Providers + +------+ + | Care Embedded Systems Engineer Name | Role | Phone | + +------+ + PCP | Unavailable | + +------+ + Encounter Details +--------+ + + + + | Date | Type | Department | Care Team | Description | +--------+ + + + + | 11/04/ | Hospital | [facility] | Unknown, | | | 2004 | Encounter | MED CTR XRAY [address] | MD [address] . | | | | | [address] | | | | | | [place] [address] | (Fax) | | | | | [phone] | | | +--------+ + + + [...]
--- OUTSIDE RECORDS SUMMARY | ~2020-05-03 | XMS | Encounter Summary ---
Demographics + + + | Address | [address] | | | [place] [address] | + + + | Home Phone [...] Organization | [facility] | | | and [place] | [...] Team Providers + +------+ + | Care Sub Acute Care Nurse Name | Role | Phone | + +------+ + PCP | Unavailable | + +------+ + Encounter Details +--------+ + + + + | Date | Type | Department | Care Team | Description | +--------+ + + + + | 05/28/ | Hospital | [facility] | | | | 1991 | Encounter | MED CTR EMERGENCY | | | | | | CENTER [address] | | | | | | [place] | | | | | | [address] | | | | | | [phone] | | | +--------+ + + + [...]
--- OUTSIDE RECORDS SUMMARY | ~2020-05-03 | XMS | Encounter Summary ---
Demographics + + + | Address | [address] | | | [place] [address] | + + + | Home Phone [...] + + + | Author | [place] 1,2,3 [employer] [facility] | + + + | Organization | [facility] own[employer] Science [facility] | + [...] Team Providers + +------+ + | Care Circular Stuffer Name | Role | Phone | + [...] | | | | | cerebri | [address] | | | | | | Procedures | Ave | | | | | | CONSULT TO | [place], [place] | | | | | | [facility] | [address] | | | | | | | Phone: | | | | | | | [phone] | | | | | | | Fax: | | | | | | | [phone] | | +--------+--------+ + + + + [...] Cerebri | | 2005 | Visit | [facility] | [address] | (Primary Dx) | | | | Rd Mailcode:OP14B | [place], [place] | | | | | [facility] | [address] | | | | | [place], [place] | [phone] | | | | | [address] | | | | | | [phone] | | | +--------+---------+ + + + [...] pressu re. Referral to Dr. Maloney in [place] where a lumboperitoneal shunt was placed and subsequently explanted due to infection and migration of the catheter tip from the peritoneal space. She feels that her symptoms were helped at the time of the placement of the shunt; the head aches and visual problems have worsened since shunt removal. She has opted to come to [facility] rather than to return to [place] based on travel convenience. Review of Systems: [...] brain without; Neuro-ophthalmology consultation. [facility] Plan [facility] Treatment Not on [...]
--- OUTSIDE RECORDS SUMMARY | ~2020-05-03 | XMS | Encounter Summary ---
Demographics + + + | Address | [address] | | | [place] [address] | + + + | Home Phone [...] + + | Author | [place] [employer] [facility] | + + + | Organization | [facility] PublicRel[employer] Science [facility] | + + + | Address | Unknown | + + + | Phone | Unavailable | + + + Support + + +---------+ + | Name | Relationship | Address | Phone | + + +---------+ + | Ruby Au | ECON | Unknown | | + + +---------+ + Care Team Providers + +------+ + | Care Steam Crane Operator Name | Role | Phone | + +------+ + | Brenden Benavides MD | PCP | | + +------+ + Encounter Details +--------+ + + + + | Date | Type | Department | Care Team | Description | +--------+ + + + + | 02/22/ | Telephone | [facility] | Brad Currie MD | | | 2006 | | [place] | | | | | | Neuro-Ophthalmology | | | | | | [address] [facility] | | | | | | Mailcode: PATTI | | | | | | [place] [address] | | | | | | [phone] | | | +--------+ + + + [...]
--- OUTSIDE RECORDS SUMMARY | ~2020-05-03 | XMS | Encounter Summary ---
Demographics + + + | Address | [address] | | | [place] [address] | + + + | Home Phone [...] Organization | [facility] | | | and [...] Team Providers + +------+ + | Care Figure Skater Name | Role | Phone | + +------+ + PCP | Unavailable | + +------+ + Encounter Details +--------+ + + + + | Date | Type | Department | Care Team | Description | +--------+ + + + + | 05/21/ | Hospital | [facility] | | | | 1991 | Encounter | MED CTR WOMENS | | | | | | HEALTH [address] | | | | | | [place], | | | | | | [place] [address] | | | | | | [phone] | | | +--------+ + + + [...]
--- OUTSIDE RECORDS SUMMARY | ~2020-05-03 | XMS | Encounter Summary ---
Demographics + + + | Address | [address] | | | [place] [address] | + + + | Home Phone [...] + + + | Author | [place] [employer] [facility] | + + + | Organization | [facility] [employer] [facility] | + [...] Providers + +------+ + | Care Roll Up Machine Operator Name | Role | Phone [...] | | Ophthalmology | | Non-[facility] | [place], | | | | | | Epic Dept | Graciela Guardado MD | | | | | | | [address] | | | | | | | Ave | | | | | | | [place], [place] | | | | | | | [address] | | | | | | | Phone: | | | | | | | [phone] | | | | | | | Fax: | | | | | | | [phone] | +--------+--------+ + + + + Encounter Details +--------+---------+ + + + | Date | Type | Department | Care Team | Description | +--------+---------+ + + + | 03/26/ | Office | [facility] | Mo Hood | Pseudotumor cerebri | | 2012 | Visit | [place]/Ophthalmol | MD [place] | (Primary Dx); | | | | ogy at [facility] [address] | | Depression; Type II | | | | [address] Mailcode: | | or unspecified type | | | | [facility] Center for | | diabetes mellitus | | | | Health and Healing, | | without mention of | | | | Building | | complication, not | | | | Floor [place], [place] | | stated as | | | | [address] | | uncontrolled; PTSD | | | | [phone] | | (post-traumatic | | | | [...] HPI: 37 y.o. year old female from [place] : Patient presents with: IIH - Idiopathic [...] because they live 4 hours away in [place] [facility]. 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 Hughes at [facility] in 2006) and s/p multiple lumboperitoneal [...] Dr. Lux. Mo Hood MD Resident Physician [facility] [place], PGY-2 [facility] [...]
--- OUTSIDE RECORDS SUMMARY | ~2020-05-03 | XMS | Encounter Summary ---
Demographics + + + | Address | [address] | | | [place] [address] | + + + | Home Phone | | + + + | Preferred Language | Unknown | + + + | Marital Status | | + + + | Anglican Affiliation | Unknown | + + + | Race | Unknown | + + + | Ethnic Group | Unknown | + + + Author + + + | Author | [facility] | | | and [place] | + + + | Organization | [facility] | | | and [place] | [...] Team Providers + +------+ + | Care Talend Etl Developer Name | Role | Phone | + +------+ + PCP | Unavailable | + +------+ + Encounter Details +--------+ + + + + | Date | Type | Department | Care Team | Description | +--------+ + + + + | 10/02/ | Hospital | [facility] | | | | 1991 | Encounter | MED CTR WOMENS | | | | | | HEALTH [address] | | | | | | [place], | | | | | | [place] [address] | | | | | | [phone] | | | +--------+ + + + [...]
--- OUTSIDE RECORDS SUMMARY | ~2020-05-03 | XMS | Encounter Summary ---
Demographics + + + | Address | [address] | | | [place] [address] | + + + | Home Phone [...] Organization | [facility] | | | and [...] Providers + +------+ + | Care Draw Off Worker Name | Role | Phone | + +------+ + PCP | Unavailable | + +------+ + Encounter Details +--------+ + + + + | Date | Type | Department | Care Team | Description | +--------+ + + + + | 10/29/ | Hospital | [facility] | | | | 1991 | Encounter | MED CTR EMERGENCY | | | | | | CENTER [address] | | | | | | [place] | | | | | | [address] | | | | | | [phone] | | | +--------+ + + + [...]
--- OUTSIDE RECORDS SUMMARY | ~2020-05-03 | XMS | Encounter Summary ---
Demographics + + + | Address | [address] | | | [place] [address] | + + + | Home Phone [...] Organization | [facility] | | | and [...] Team Providers + +------+ + | Care Jewelry Technician Name | Role | Phone | + +------+ + PCP | Unavailable | + +------+ + Encounter Details +--------+ + + + + | Date | Type | Department | Care Team | Description | +--------+ + + + + | 07/12/ | Hospital | [facility] | Conversion | | | 2010 | Encounter | HEART MED CTR | Transaction, | | | | | EMERGENCY CENTER | Provider Unknown | | | | | [address] | | | | | | [place] | (Fax) | | | | | [address] | | | | | | [phone] | | | +--------+ + + + [...]
--- OUTSIDE RECORDS SUMMARY | ~2020-05-03 | XMS | Encounter Summary ---
Demographics + + + | Address | [address] | | | [place] [address] | + + + | Home Phone | | + + + | Preferred Language | Unknown | + + + | Marital Status | | + + + | Buddhism Affiliation | Unknown | + + + | Race | Unknown | + + + | Ethnic Group | Unknown | + + + Author + + + | Author | [facility] | | | and [place] | + + + | Organization | [facility] | | | and [...] Team Providers + +------+ + | Care Boring Machine Set Up Operator Jig Name | Role | Phone | + +------+ + PCP | Unavailable | + +------+ + Encounter Details +--------+ + + + + | Date | Type | Department | Care Team | Description | +--------+ + + + + | 05/15/ | Hospital | [facility] | | | | 1991 | Encounter | MED CTR XRAY [address] | | | | | | [address] [place] | | | | | | [place] [address] | | | | | | [phone] | | | +--------+ + + + [...]
--- OUTSIDE RECORDS SUMMARY | ~2020-05-03 | XMS | Encounter Summary ---
Demographics + + + | Address | [address] | | | [place] [address] | + + + | Home Phone [...] + + + | Author | [place] [employer] [facility] | + + + | Organization | [facility] | [...] Providers + +------+ + | Care Fish Boning Machine Feeder Name | Role | Phone | + [...] Cerebri | | 2006 | Visit | [place] | | (Primary Dx) | | | | Neuro-Ophthalmology | | | | | | [address] [facility] | | | | | | Mailcode: PATTI | | | | | | [place] [address] | | | | | | [phone] | | | +--------+---------+ + + + [...] documented as of this encounter Progress Notes [place] - 11/30/2006 11:58 AM PSTFormatting of this [...] Brad Currie MD Neuro-Ophthalmology and Cerebrovascular Disease Barrel Maker of Ophthalmology, Neurology, and Neurosurgery documented in [...] | + + +--------+ + + | [place] [facility] | Procedures | Routin | Pseudotumor | Ordered: 12/02/2006 | | EXAM,EXTENDED | | e | Cerebri | | + + +--------+ + + documented as of this encounter Visit Diagnoses + + | Diagnosis | + + | Pseudotumor cerebri - Primary Benign intracranial hypertension | + + documented in this encounter"
--- OUTSIDE RECORDS SUMMARY | ~2020-05-03 | XMS | Encounter Summary ---
Demographics + + + | Address | [address] | | | [place] [address] | + + + | Home Phone [...] + + + | Author | [place] Wally Science [facility] | + + + | Organization | [facility] [employer] Science [facility] | + + + | Address | Unknown | + + + | Phone | Unavailable | + + + Support + + +---------+ + | Name | Relationship | Address | Phone | + + +---------+ + | Ruby Au | ECON | Unknown | | + + +---------+ + Care Team Providers + +------+ + | Care Volunteer Services Manager Name | Role | Phone [...] | | Ave Mailcode: CH8N | [place], [place] | | | | | [facility] | [address] | | | | | and Healing, | [phone] | | | | | [facility] | | | | | | Floor [place], [place] | | | | | | [address] | | | | | | [phone] | | | +--------+ + + + [...]
--- OUTSIDE RECORDS SUMMARY | ~2020-05-03 | XMS | Encounter Summary ---
Demographics + + + | Address | [address] | | | [place] [address] | + + + | Home Phone [...] + + + | Author | [place] Ep[employer] [facility] | + + + | Organization | [facility]String [facility] | + + + | Address | Unknown | + + + | Phone | Unavailable | + + + Support + + +---------+ + | Name | Relationship | Address | Phone | + + +---------+ + | Ruby Au | ECON | Unknown | | + + +---------+ + Care Team Providers + +------+ + | Care Pickling Drum Operator Name | Role | Phone | [...] [place], [place] | | | | | [facility] | [address] | | | | | and Healing, | [phone] | | | | | [facility] | | | | | | Floor [place], [place] | | | | | | [address] | | | | | | [phone] | | | +--------+ + + + [...]
--- OUTSIDE RECORDS SUMMARY | ~2020-05-03 | XMS | Encounter Summary ---
Demographics + + + | Address | [address] | | | [place] [address] | + + + | Home Phone [...] + + | Author | [place] [employer] [facility] | + + + | Organization | [facility] | + [...] Providers + +------+ + | Care Marketing Operations Manager Name | Role | Phone | [...] | | | Ave Mailcode: CH8N | [place], [place] | | | | | [facility] | [address] | | | | | and Healing, | [phone] | | | | | [facility] | | | | | | Floor [place], [place] | | | | | | [address] | | | | | | [phone] | | | +--------+---------+ + + + [...]
--- OUTSIDE RECORDS SUMMARY | ~2020-05-03 | XMS | Encounter Summary ---
Demographics + + + | Address | [address] | | | [place] [address] | + + + | Home Phone [...] Author | [facility] | | | and [place] | + + + | Organization | [facility] | | | and [...] Team Providers + +------+ + | Care Refrigerated National Truck Driver Name | Role | Phone | + +------+ + PCP | Unavailable | + +------+ + Encounter Details +--------+ + + + + | Date | Type | Department | Care Team | Description | +--------+ + + + + | 08/01/ | Hospital | [facility] | | | | 1991 | Encounter | MED CTR [facility] | | | | | | HEALTH [address] | | | | | | [place], | | | | | | [place] [address] | | | | | | [phone] | | | +--------+ + + + [...]
--- OUTSIDE RECORDS SUMMARY | ~2020-05-03 | XMS | Encounter Summary ---
Demographics + + + | Address | [address] | | | [place] [address] | + + + | Home Phone [...] + + + | Author | [place] [employer] [facility] | + + + | Organization | [facility] Lots[facility] Helping Hands [facility] | + + + | Address | Unknown | + + + | Phone | Unavailable | + + + Support + + +---------+ + | Name | Relationship | Address | Phone | + + +---------+ + | Ruby Au | ECON | Unknown | | + + +---------+ + Care Team Providers + +------+ + | Care Painter Railroad Car Name | Role | Phone | + [...] | Eulalio Arevalo, | Headache | | 2015 | | [place] | [address] | | | | | Neuro-Ophthalmology | [facility] [place] | | | | | at [facility] [address] | [address] | | | | | Ave Mailcode: [facility] | [phone] | | | | | [facility] | | | | | | and Healing, | | | | | | Building | | | | | | Floor [place], [place] | | | | | | [address] | | | | | | [phone] | | | +--------+ + + + [...]
--- OUTSIDE RECORDS SUMMARY | ~2020-05-03 | XMS | Encounter Summary ---
Demographics + + + | Address | [address] | | | [place] [address] | + + + | Home Phone [...] + + + | Author | [place] [employer] [facility] | + + + | Organization | [facility] Livestar Science [facility] [...] Team Providers + +------+ + | Care Bale Piler Name | Role | Phone | + +------+ + | Brenden Benavides MD | PCP | | + +------+ + Encounter Details +--------+ + + + + | Date | Type | Department | Care Team | Description | +--------+ + + + + | 09/28/ | Documentati | [facility] | Brad Currie MD | | | 2006 | on | [place] | | | | | | Neuro-Ophthalmology | | | | | | [address] | | | | | | Mailcode: PATTI | | | | | | [place] [address] | | | | | | [phone] | | | +--------+ + + + [...]
--- OUTSIDE RECORDS SUMMARY | ~2020-05-03 | XMS | Encounter Summary ---
Demographics + + + | Address | [address] | | | [place] [address] | + + + | Home Phone [...] + + + | Author | [place] Tele[employer] [facility] | + + + | Organization | [facility] [employer] [facility] [...] Team Providers + +------+ + | Care Toe Stapler Name | Role | Phone | [...] | | | Ave Mailcode: CH8N | [place], [place] | | | | | [facility] | [address] | | | | | and Healing, | [phone] | | | | | [facility] | | | | | | Floor [place], [place] | | | | | | [address] | | | | | | [phone] | | | +--------+ + + + [...]
--- OUTSIDE RECORDS SUMMARY | ~2020-05-03 | XMS | Encounter Summary ---
Demographics + + + | Address | [address] | | | [place] [address] | + + + | Home Phone [...] + | Organization | [facility] | | | and [...] Team Providers + +------+ + | Care Display Department Manager Name | Role | Phone | + +------+ + PCP | Unavailable | + +------+ + Encounter Details +--------+ + + + + | Date | Type | Department | Care Team | Description | +--------+ + + + + | 08/12/ | Hospital | [facility] | Jenn Oreilly, | | | 2012 | Encounter | HOSPITAL EMERGENCY | [facility] [address] | | | | | CENTER [address] | [place] | | | | | [place] | [id number] | | | | | [address] | | | | | | [phone] | | | +--------+ + + + [...]
--- OUTSIDE RECORDS SUMMARY | ~2020-05-03 | XMS | Encounter Summary ---
Demographics + + + | Address | [address] | | | [place] [address] | + + + | Home Phone [...] + + + | Author | [place] [employer] [facility] | + + + | Organization | [facility] Kongregate [facility] | + + [...] Providers + +------+ + | Care Supervisor Carbon Paper Coating Name | Role | Phone | + +------+ + | Yeison Simms MD | PCP | Unavailable | + +------+ + Reason for Visit + + + | Reason | Comments | + + + | Refill Request | refill on [place] | + + + Encounter Details +--------+--------+ + + + | Date | Type | Department | Care Team | Description | +--------+--------+ + + + | 08/27/ | Refill | Neurosurgery at | Sam Pedroza MD | Refill Request | | 2007 | | [facility] [address] | [address] | (refill on [place]) | | | | Ave Mailcode: CH8N | [place], [place] | | | | | [facility] | [address] | | | | | and Healing, | [phone] | | | | | [facility] | | | | | | Floor [place], [place] | | | | | | [address] | | | | | | [phone] | | | +--------+--------+ + + + [...]
--- OUTSIDE RECORDS SUMMARY | ~2020-05-03 | XMS | Encounter Summary ---
Demographics + + + | Address | [address] | | | [place] [address] | + + + | Home Phone [...] + + + | Author | [place] [employer] Science [facility] | + + + | Organization | [facility] [email or web address] Science [facility] [...] Providers + +------+ + | Care Data Management Specialist Name | Role | Phone | + +------+ + | Brenden Benavides MD | PCP | | + +------+ + Encounter Details +--------+ + + + + | Date | Type | Department | Care Team | Description | +--------+ + + + + | 02/23/ | Telephone | [facility] | Brad Currie MD | | | 2006 | | [place] | | | | | | Neuro-Ophthalmology | | | | | | [address] [facility] | | | | | | Mailcode: PATTI | | | | | | [place] [address] | | | | | | [phone] | | | +--------+ + + + [...]
--- OUTSIDE RECORDS SUMMARY | ~2020-05-03 | XMS | Encounter Summary ---
Demographics + + + | Address | [address] | | | [place] [address] | + + + | Home Phone [...] + + + | Author | [place] [employer] [facility] | + + + | Organization | [facility] [facility] | + [...] Team Providers + +------+ + | Care Weather Teacher Name | Role | Phone | [...] [facility] [address] | MD [address] | | | | | [place] Mailcode: CH8N | [address] [facility] | | | | | [facility] | Rd [place], [place] | | | | | and Healing, | [address] | | | | | Building | [phone] | | | | | Floor [place], [place] | | | | | | [address] | | | | | | [phone] | | | +--------+ + + + [...]
--- OUTSIDE RECORDS SUMMARY | ~2020-05-03 | XMS | Encounter Summary ---
Demographics + + + | Address | [address] | | | [place] [address] | + + + | Home Phone [...] + + + | Author | [place] Karma Science [facility] | + + + | Organization | [facility] Science [facility] | + + + | Address | Unknown | + + + | Phone | Unavailable | + + + Support + + +---------+ + | Name | Relationship | Address | Phone | + + +---------+ + | Ruby Au | ECON | Unknown | | + + +---------+ + Care Team Providers + +------+ + | Care Bed Placement Coordinator Name | Role | Phone | [...] | | | Ave Mailcode: CH8N | [place], [place] | | | | | [facility] | [address] | | | | | and Healing, | [phone] | | | | | [facility] | | | | | | Floor [place], [place] | | | | | | [address] | | | | | | [phone] | | | +--------+--------+ + + + [...]
--- OUTSIDE RECORDS SUMMARY | ~2020-05-03 | XMS | Encounter Summary ---
Demographics + + + | Address | [address] | | | [place] [address] | + + + | Home Phone [...] [facility] | [...] Team Providers + +------+ + | Care Four Horse Hitch Driver Name | Role | Phone | + +------+ + PCP | Unavailable | + +------+ + Encounter Details +--------+ + + + + | Date | Type | Department | Care Team | Description | +--------+ + + + + | 07/07/ | Hospital | [facility] | | | | 1991 | Encounter | MED CTR EMERGENCY | | | | | | CENTER [address] | | | | | | [place] | | | | | | [address] | | | | | | [phone] | | | +--------+ + + + [...]
--- OUTSIDE RECORDS SUMMARY | ~2020-05-03 | XMS | Encounter Summary ---
Demographics + + + | Address | [address] | | | [place] [address] | + + + | Home Phone [...] + + + | Author | [place] [employer] [facility] | + + + | Organization | [facility] [employer] [facility] | + + + | Address | Unknown | + + + | Phone | Unavailable | + + + Support + + +---------+ + | Name | Relationship | Address | Phone | + + +---------+ + | Ruby Au | ECON | Unknown | | + + +---------+ + Care Team Providers + +------+ + | Care Inspector Receiving Name | Role | Phone | + [...] | | | Ave Mailcode: CH8N | [place], [place] | | | | | [facility] | [address] | | | | | and Healing, | [phone] | | | | | [facility] | | | | | | Floor [facility] [place] | | | | | | [address] | | | | | | [phone] | | | +--------+ + + + [...]
--- OUTSIDE RECORDS SUMMARY | ~2020-05-03 | XMS | Encounter Summary ---
Demographics + + + | Address | [address] | | | [place] [address] | + + + | Home Phone [...] + + | Author | [place] [employer] Science [facility] | + + + | Organization | [facility] Doodle [facility] [...] Providers + +------+ + | Care Collar Stay Fuser Tender Name | Role | Phone | [...] | | | | | | | [place] | | | | | | | [id number] | | | | | | | [facility] | | | | | | | [place], | | | | | | | [place] [address] | | | | | | | Phone: | | | | | | | [phone] | +--------+--------+ + + + + Encounter Details +--------+ + + + + | Date | Type | Department | Care Team | Description | +--------+ + + + + | 08/01/ | Hospital | [facility] [address] | Sam Pedroza MD | | | 2007 - | Encounter | [place] | [address] | | | | | [id number] [facility] | [place], [place] | | | 08/02/ | | HOSPITAL [place], | [address] | | | 2007 | | [place] [address] | [phone] | | | | | [phone] | | | +--------+ + + + [...] in 2 weeks, please call for appointment: [phone] Condition On Discharge: Vital Signs at discharge [...] in 2 weeks, please call for appointment: [phone] Condition On Discharge: Vital Signs at discharge [...] independently, has no ADL needs and [facility] Dr. Pedroza agreed that she would not need therapies. Spoke with RN who endorses that pt has been up independently last pm and this am. OT to sign off at this time. Yessenia Nowak, OTR/ L 11018 Tomasz Caldera Md - 02/2008 11:08 AM [...] | | + +---------+ + + | [facility] DEPARTMENT OF | | | | | RADIOLOGY | | | | + +---------+ + + OPERATION RECORD (08/01/2008 12:00 AM PDT) + + + | Narrative | Performed At | + + + | [id number] | | | [id number] | | | [place] [id number] Date: | | | 08/01/2008 Attending Surgeon: | | | Sam Pedroza M.D. Meat Packager(s): | | | Tomasz Rice M.D. | [...] | tonsils and then gently incised. A [place] 4 was then easily fed | | [...] | | | Pooja Pedroza M.D. / [id number] / | | | [id number] / [id number] / | | + + + + + | Procedure Note | + + | Krystal Rushing, Tomasz - 08/01/2008 12:00 AM PDT [id number] | | [id number] [place] | | [id number] Date: 08/01/2008 Attending Surgeon: Sam | | Pooja Pedroza Meat Packager(s): Tomasz Rice M.D. | | Palomo Jansen [...] tonsils and | | thengently incised. A [place] 4 was then easily fed through it, [...] Sam Pedroza M.D. KG / | | [id number] / [id number] / [id number] / T: 08/02/2008 | |dripping from the [...] tonsils and then | |gently incised. A [place] 4 was then easily fed through it, [...] | | | |KG / HS | |[id number] / [id number] / [id number] / | | | | | | | | | | | | | | | | | | | | | + + TEACHING PHYSICIAN (08/01/2008 12:00 AM PDT) + + + | Narrative | Performed At | + + + | [id number] | | | [id number] | | | [place] [id number] | | | Date: 08/01/2008 Attending Surgeon: | | | Sam Pedroza M.D. Meat Packager(s): | | | Tomasz Rice M.D. | [...] | | | Pooja Pedroza / LANETTE [id number] / [id number] / [id number] / [id number] D: | | | 08/01/2008 | | + + + + + | Procedure Note | + + | Sam Pedroza MD - 08/01/2008 12:00 AM PDT [id number] | | [id number] [place] | | [id number] Date: 08/01/2008ttending Surgeon: Sam | | Pooja Pedroza Meat Packager(s): Tomasz Rice M.D. | | Palomo Jansen [...] | Bisi. Sam Pedroza M.D. AD / [id number] / [id number] / [id number] / 17111S: | | 08/01/2008T: 08/01/2008 | | | [...] | | | |AD / HS | |[id number] / [id number] / [id number] / 72024 | | | | | | | [...]
--- OUTSIDE RECORDS SUMMARY | ~2020-05-03 | XMS | Encounter Summary ---
Demographics + + + | Address | [address] | | | [place] [address] | + + + | Home Phone [...] Team Providers + +------+ + | Care Prototype Machine Operator Name | Role | Phone | + +------+ + PCP | Unavailable | + +------+ + Encounter Details +--------+ + + + + | Date | Type | Department | Care Team | Description | +--------+ + + + + | 09/20/ | Hospital | [facility] | | | | 1991 | Encounter | MED CTR [facility] | | | | | | HEALTH [address] | | | | | | [place], | | | | | | [place] [address] | | | | | | [phone] | | | +--------+ + + + [...]
--- OUTSIDE RECORDS SUMMARY | ~2020-05-03 | XMS | Encounter Summary ---
Demographics + + + | Address | [address] | | | [place] [address] | + + + | Home Phone [...] | [facility] [...] Providers + +------+ + | Care Rotary Drill Rig Operator Name | Role | Phone | + +------+ + PCP | Unavailable | + +------+ + Encounter Details +--------+ + + + + | Date | Type | Department | Care Team | Description | +--------+ + + + + | 07/06/ | Hospital | [facility] | Mirna Lambert | | | 2007 | Encounter | MED CTR EMERGENCY | MD Kwaku Gregory | | | | | [place] [address] | [facility] | | | | | [place] | [place] [address] | | | | | [address] | [phone] | | | | | [phone] | | | +--------+ + + + [...]
--- OUTSIDE RECORDS SUMMARY | ~2020-05-03 | XMS | Encounter Summary ---
[...] + + + | Author | [place] The Rowing Team Science [facility] | + + + | Organization | [facility] Back[employer] Science [facility] [...] Team Providers + +------+ + | Care Marriage And Family Counselor Name | Role | Phone | + +------+ + | Brenden Benavides MD | PCP | | + +------+ + Encounter Details +--------+ + + + + | Date | Type | Department | Care Team | Description | +--------+ + + + + | 02/22/ | Telephone | [facility] | Brad Currie MD | | | 2006 | | [place] | | | | | | Neuro-Ophthalmology | | | | | | [address] [facility] | | | | | | Mailcode: PATTI | | | | | | [place] [address] | | | | | | [phone] | | | +--------+ + + + [...]
--- OUTSIDE RECORDS SUMMARY | ~2020-05-03 | XMS | Encounter Summary ---
Demographics + + + | Address | [address] | | | [place] [address] | + + + | Home Phone [...] Organization | [facility] | | | and [place] [...] Providers + +------+ + | Care Supervisor Rides Name | Role | Phone | + +------+ + PCP | Unavailable | + +------+ + Encounter Details +--------+ + + + + | Date | Type | Department | Care Team | Description | +--------+ + + + + | 06/20/ | Hospital | [facility] | Yovanny Suazo, | | | 1991 | Encounter | MED CTR WOMENS | MD [address] | | | | | [facility] [address] | [address] | | | | | [place], | [place] [address] | | | | | [place] [address] | [phone] | | | | | [phone] | | | +--------+ + + + [...]
--- OUTSIDE RECORDS SUMMARY | ~2020-05-03 | XMS | Encounter Summary ---
Demographics + + + | Address | [address] | | | [place] [address] | + + + | Home Phone [...] Organization | [facility] | | | and [place] [...] Team Providers + +------+ + | Care Aircraft Engine Technician Name | Role | Phone | + +------+ + PCP | Unavailable | + +------+ + Encounter Details +--------+ + + + + | Date | Type | Department | Care Team | Description | +--------+ + + + + | 05/31/ | Hospital | [facility] | | | | 1991 | Encounter | MED CTR W[facility] | | | | | | HEALTH SV [address] | | | | | | [place], | | | | | | [place] [address] | | | | | | [phone] | | | +--------+ + + + [...]
--- OUTSIDE RECORDS SUMMARY | ~2020-05-03 | XMS | Encounter Summary ---
Demographics + + + | Address | [address] | | | [place] [address] | + + + | Home Phone [...] [facility] | | | [...] Providers + +------+ + | Care Offset Duplicating Machine Operator Name | Role | Phone | + +------+ + PCP | Unavailable | + +------+ + Encounter Details +--------+ + + + + | Date | Type | Department | Care Team | Description | +--------+ + + + + | 07/21/ | Hospital | [facility] | | | | 1990 | Encounter | MED CTR EMERGENCY | | | | | | CENTER [address] | | | | | | [place] | | | | | | [address] | | | | | | [phone] | | | +--------+ + + + [...]
--- OUTSIDE RECORDS SUMMARY | ~2020-05-03 | XMS | Encounter Summary ---
Demographics + + + | Address | [address] | | | [place] [address] | + + + | Home Phone [...] Team Providers + +------+ + | Care Middle School Director Name | Role | Phone | [...] | | | | | | [place] [address] | | | | | | [phone] | | | +--------+ + + + [...]
--- OUTSIDE RECORDS SUMMARY | ~2020-05-03 | XMS | Encounter Summary ---
Demographics + + + | Address | [address] | | | [place] [address] | + + + | Home Phone [...] + + + | Author | [place] [employer] Science [facility] | + + + | Organization | [facility] Science [facility] | [...] + +------+ + | Care Community Health Advocate Name | Role | Phone | + [...] | | hypertension | [place], [place] | [place], [place] | | | | | Procedures | [address] | [address] | | | | | REQUEST TO | Phone: | Phone: | | | | | SURGERY | [phone] | [phone] | | | | | LEGAL INVESTIGATOR | Fax: | Fax: | | | | | [place] INSTALL | [phone] | [phone] | | | | | SPINAL | [...] | | | Ave Mailcode: CH8N | [place], [place] | | | | | [facility] | [address] | | | | | and [place], | [phone] | | | | | [facility] | | | | | | Floor [place], [place] | | | | | | [address] | | | | | | [phone] | | | +--------+ + + + [...]
--- OUTSIDE RECORDS SUMMARY | ~2020-05-03 | XMS | Encounter Summary ---
Demographics + + + | Address | [address] | | | [place] [address] | + + + | Home Phone [...] + + + | Author | [place] [email or web address] Science [facility] | + + + | Organization | [facility] | [...] Team Providers + +------+ + | Care Geologic Technician Name | Role | Phone | [...] | | | | | Physician's | [place], [place] | | | | | [place], [facility] floor | [address] | | | | | [place], [place] | [phone] | | | | | [address] | | | | | | [phone] | | | +--------+ + + + [...]
--- OUTSIDE RECORDS SUMMARY | ~2020-05-03 | XMS | Encounter Summary ---
Demographics + + + | Address | [address] | | | [place] [address] | + + + | Home Phone [...] | Organization | [facility] | [...] Team Providers + +------+ + | Care Shellfish Farming Supervisor Name | Role | Phone | + +------+ + PCP | Unavailable | + +------+ + Encounter Details +--------+ + + + + | Date | Type | Department | Care Team | Description | +--------+ + + + + | 10/18/ | Hospital | [facility] | | | | 1991 | Encounter | MED CTR W[facility]ENS | | | | | | HEALTH [address] | | | | | | [place], | | | | | | [place] [address] | | | | | | [phone] | | | +--------+ + + + [...]
--- OUTSIDE RECORDS SUMMARY | ~2020-05-03 | XMS | Encounter Summary ---
Demographics + + + | Address | [address] | | | [place] [address] | + + + | Home Phone [...] + + + | Author | [place] [employer] [facility] | + + + | Organization | [facility] [employer] [facility] [...] Team Providers + +------+ + | Care Travel Pta Name | Role | Phone | + [...] Erroneous Encounter | | 2007 | | [place] for [facility] | [place] [facility] | - Disregard | | | | and Healing [address] | Neurosurgery [address] | | | | | [address] Mailcode: | [address] | | | | | [facility] Center for | [place], [place] | | | | | Health and Healing, | [address] | | | | | Building 1, 8th | | | | | | Floor [place], [place] | | | | | | [address] | | | | | | [phone] | | | +--------+ + + + [...]
--- OUTSIDE RECORDS SUMMARY | ~2020-05-03 | XMS | Encounter Summary ---
Demographics + + + | Address | [address] | | | [place] [address] | + + + | Home Phone [...] + + + | Author | [place] [employer] [facility] | + + + | Organization | [facility] [employer] [facility] | + + + | Address | Unknown | + + + | Phone | Unavailable | + + + Support + + +---------+ + | Name | Relationship | Address | Phone | + + +---------+ + | Ruby Au | ECON | Unknown | | + + +---------+ + Care Team Providers + +------+ + | Care Marketing Programs Specialist Name | Role | Phone | [...] Request (Pt | | 2006 | | [place] | Cassi Hammer | requests more pain | | | | Oculoplastics at | [place], [place] | medication) | | | | [address] | [address] | | | | | [address] | [phone] | | | | | [facility] [place] | | | | | | [facility], [facility] floor | | | | | | [place] [address] | | | | | | [phone] | | | +--------+--------+ + + + [...]
--- OUTSIDE RECORDS SUMMARY | ~2020-05-03 | XMS | Encounter Summary ---
Demographics + + + | Address | [address] | | | [place] [address] | + + + | Home Phone [...] + + + | Author | [place] [employer] [facility] | + + + | Organization | [facility] [employer] [facility] | [...] Providers + +------+ + | Care Rn Appeals Name | Role | Phone | + [...] | | | | | | [address] | | | | | | | [facility] | | | | | | | [place], | | | | | | | [address] [place] [address] | | | | | | | [place], [place] | | | | | | | [address] Phone: | | | | | | | [phone] | | | | | | | Fax: | | | | | | | [phone] | +--------+--------+ + + + + Encounter Details +--------+ + + + + | Date | Type | Department | Care Team | Description | +--------+ + + + + | 03/26/ | Procedure | [facility] | | Visual field testing | | 2012 | | [facility] | | | | | | [place] at [facility] [address] | | | | | | [address] | | | | | | Mailcode: CH11P | | | | | | [facility] | | | | | | and Healing, | | | | | | | | | | | | [place], [place] | | | | | | [address] | | | | | | [phone] | | | +--------+ + + + [...] PDT Annabella Au was seen in the [facility] [place] [facility] [place] Department today, 2012, for 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 documented in this encounter Plan of Treatment Not on filedocumented as of this encounter Procedures + +--------+ + + + | Procedure Name | Priori | Date/Time | Associated Diagnosis | Comments | | | ty | | | | + +--------+ + + + | GA VISUAL FIELD | Routin | 03/26/2013 | [...]
--- OUTSIDE RECORDS SUMMARY | ~2020-05-03 | XMS | Encounter Summary ---
Demographics + + + | Address | [address] | | | [place] [address] | + + + | Home Phone [...] + | Organization | [facility] | | | and [...] Team Providers + +------+ + | Care Cash Office Worker Name | Role | Phone | + +------+ + PCP | Unavailable | + +------+ + Encounter Details +--------+ + + + + | Date | Type | Department | Care Team | Description | +--------+ + + + + | 04/21/ | Hospital | [facility] | | | | 1995 | Encounter | MED CTR EMERGENCY | | | | | | CENTER [address] | | | | | | [place] | | | | | | [address] | | | | | | [phone] | | | +--------+ + + + [...]
--- OUTSIDE RECORDS SUMMARY | ~2020-05-03 | XMS | Encounter Summary ---
Demographics + + + | Address | [address] | | | [place] [address] | + + + | Home Phone [...] Organization | [facility] | | [...] Team Providers + +------+ + | Care Foreman Or Supervisor And Operator Name | Role | Phone | + +------+ + PCP | Unavailable | + +------+ + Encounter Details +--------+ + + + + | Date | Type | Department | Care Team | Description | +--------+ + + + + | 07/19/ | Hospital | [facility] | [place], | | | 1990 - | Encounter | MED CTR MED ONC | [address] | | | | | [address] | [place] | | | 07/21/ | | [place] [address] | [address] | | | 1990 | | [phone] | | | +--------+ + + + [...]
--- OUTSIDE RECORDS SUMMARY | ~2020-05-03 | XMS | Encounter Summary ---
Demographics + + + | Address | [address] | | | [place] [address] | + + + | Home Phone [...] + + + | Author | [place] [employer] [facility] | + + + | Organization | [facility] [employer] [facility] | + [...] Team Providers + +------+ + | Care Cricket Coach Name | Role | Phone | [...] Cerebri | | 2006 | Visit | [place] | | (Primary Dx) | | | | Neuro-Ophthalmology | | | | | | [address] [facility] | | | | | | Mailcode: PATTI | | | | | | [place] [address] | | | | | | [phone] | | | +--------+---------+ + + + [...] CASIMIRO PAYTON MD [address] [place] [address] Per [facility] chart note taken this morning by . Symptoms: Patient specific problem noted by patient: transient visual loss HPI: 31 y.o. year old female from [place] : Patient presents with: Transient visual loss [...] negative Pulmonary: negative GI: Problems due to custodial use of tylenol/ibuprofen. : negative Musculoskeletal: negative [...] Brad Currie MD Neuro-Ophthalmology and Cerebrovascular Disease Casino Gaming Inspector of Ophthalmology, Neurology, and Neurosurgery documented in [...]
--- OUTSIDE RECORDS SUMMARY | ~2020-05-03 | XMS | Encounter Summary ---
Demographics + + + | Address | [address] | | | [place] [address] | + + + | Home Phone [...] | Located Within [facility] | | | and [...] Team Providers + +------+ + | Care Territory Sales Manager Medical Name | Role | Phone [...] left hand | [address] | | | | n | Weakness of | [address] | [place], | | | | | both hands | [place], | [place] [address] | | | | | [place] | [place] [address] | Phone: | | | | | wrist Pain | Phone: | [phone] | | | | | of right | [phone] | Fax: | | | | | thumb | Fax: | [phone] | | | | | Trigger | [phone] | | | | | | finger of | | | | | | | right thumb | | | | | | | Procedures | | | | | | | CO MOTOR | | | | | | | &/SENS > | | | | | | | NRV CNDJ | | | | | | | PRECONF | | | | | | | ELTRODE LIMB | | | | | | | CO NEEDLE | | | | | | [...] | | | | | Trigger | [address] | Jairo Kirk | | | | | finger of | [place], | [place] | | | | | right thumb | [place] [address] | [address] | | | | | | Phone: | Phone: | | | | | | [phone] | [phone] | | | | | | Fax: | Fax: | | | | | | [phone] | [phone] | +--------+ + + + + + [...] | | Rehabilitatio | tunnel | PA-C [address] | [address] | | | | n | syndrome on | | [place], | | | | | left | [place] | [place] [address] | | | | | | WAY | Phone: | | | | | | [place], | [phone] | | | | | | [place] [address] | Fax: | | | | | | Phone: | [phone] | | | | | | [phone] | | | | | | | Fax: | | | | | | | [phone] | | +--------+--------+ + + + + Encounter Details +--------+---------+ + + + | Date | Type | Department | Care Team | Description | +--------+---------+ + + + | 01/03/ | Office | [facility] [place] | Amanuel Jennings, | Numbness of left | | 2019 | Visit | PHYSIATRY [address] | MD [address] | hand (Primary Dx); | | | | [address] | [place] | Weakness of both | | | | [place] | [address] | hands; Mass of left | | | | [address] | | wrist; Pain of right | | | | [phone] | | thumb; Trigger | | | [...] encounter Patient Instructions Patient Instructions Adelaide Santa, Communication Analyst - 01/03/2019 1:00 PM Rina chowdhury o [...] Acute low back pain Antisocial personality disorder ([facility]) Anxiety disorder Asthma Benign essential hypertension Chronic back pain Chronic obstructive lung disease (HCC) Chronic posttraumatic stress disorder Depressive disorder Diabetes mellitus type 2 in obese ([facility]) Gastroesophageal reflux disease Heroin dependence ([facility]) Hoarse Hypertensive disorder Insomnia with sleep apnea IV drug abuse ([facility]) Low back strain Numbness of left hand Obstructive sleep apnea of adult Opioid dependence on agonist therapy ([facility]) Other chronic pain Panic disorder without agoraphobia with severe panic attacks Polysubstance dependence ([facility]) Sedative, hypnotic or anxiolytic dependence, 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 4/5 hand cut out worker on the left Reflexes: 2+ normal and [...] scribed by in my presence, Adelaide Santa, Communication Analyst and are both accurate and comp lete. [...]
--- OUTSIDE RECORDS SUMMARY | ~2020-05-03 | XMS | Encounter Summary ---
Demographics + + + | Address | [address] | | | [place] [address] | + + + | Home Phone [...] Organization | [facility] [...] Team Providers + +------+ + | Care Ear Nose Throat Surgeon Name | Role | Phone | + [...] [place] | | | | | | [address] | | | | | | [phone] | | | +--------+ + + + [...]
--- OUTSIDE RECORDS SUMMARY | ~2020-05-03 | XMS | Encounter Summary ---
Demographics + + + | Address | [address] | | | [place] [address] | + + + | Home Phone [...] Organization | [facility] | | | [...] + + | 07/14/ | Hospital | [facility] | | | | 1998 | Encounter | MED CTR EMERGENCY | | | | | | CENTER [address] | | | | | | [place] | | | | | | [address] | | | | | | [phone] | | | +--------+ + + + [...]
--- OUTSIDE RECORDS SUMMARY | ~2020-05-03 | XMS | Encounter Summary ---
Demographics + + + | Address | [address] | | | [place] [address] | + + + | Home Phone [...] + + + | Author | [place] [employer] [facility] | + + + | Organization | [facility] [employer] [facility] | + [...] Erroneous Encounter | | 2007 | | [place] [facility] | [place] [facility] | - Disregard | | | | and Healing [address] | Neurosurgery [address] | | | | | [address] Mailcode: | [address] | | | | | [facility] Center for | [place], [place] | | | | | Health and Healing, | [address] | | | | | Building 1, 8th | | | | | | Floor [place], [place] | | | | | | [address] | | | | | | [phone] | | | +--------+ + + + [...]
--- OUTSIDE RECORDS SUMMARY | ~2020-05-03 | XMS | Encounter Summary ---
Demographics + + + | Address | [address] | | | [place] [address] | + + + | Home Phone [...] + | Organization | [facility] | | | and [place] [...] Providers + +------+ + | Care Food Production Machine Operator Name | Role | Phone | + +------+ + PCP | Unavailable | + +------+ + Encounter Details +--------+ + + + + | Date | Type | Department | Care Team | Description | +--------+ + + + + | 09/27/ | Hospital | [facility] | | | | 1991 | Encounter | MED CTR WOMENS | | | | | | HEALTH [facility] [address] | | | | | | [place], | | | | | | [place] [address] | | | | | | [phone] | | | +--------+ + + + [...]
--- OUTSIDE RECORDS SUMMARY | ~2020-05-03 | XMS | Encounter Summary ---
Demographics + + + | Address | [address] | | | [place] [address] | + + + | Home Phone [...] + + + | Author | [place] [employer] [facility] | + + + | Organization | [facility] [employer] [facility] | + [...] Team Providers + +------+ + | Care Mutuel Clerk Name | Role | Phone | [...] ) | | | | Physician's | [place], [place] | | | | | Pavilion, 2nd floor | [address] | | | | | [place], [place] | [phone] | | | | | [address] | | | | | | [phone] | | | +--------+ + + + [...]
--- OUTSIDE RECORDS SUMMARY | ~2020-05-03 | XMS | Encounter Summary ---
Demographics + + + | Address | [address] | | | [place] [address] | + + + | Home Phone [...] + + + | Author | [place] [employer] [facility] | + + + | Organization | [facility] [employer] [facility] | + + + | Address | Unknown | + + + | Phone | Unavailable | + + + Support + + +---------+ + | Name | Relationship | Address | Phone | + + +---------+ + | Ruby Au | ECON | Unknown | | + + +---------+ + Care Team Providers + +------+ + | Care Crm Business Analyst Name | Role | Phone | [...] | | | | [address] | [facility], | | | | | | [place], [place] | 10th Floor | | | | | | [address] | [place], [place] | | | | | | Phone: | [address] | | | | | | [phone] | Phone: | | | | | | Fax: | [phone] | | | | | | [phone] | Fax: | | | | | | | [phone] | +--------+--------+ + + + + Reason [...] Sky Maloney | | | | | [facility] | [place], [place] | | | | | [place], [place] | [address] | | | | | [address] | [phone] | | | | | [phone] | | | | | | | [...] the irma aviva. Thanks for coming to [facility] today. Your head CT was negative for any new findings. The neurosurgeon did not think there was a malfunction in your shunt. The eyeglass frames polisher recommends you taking Diomox again and follow up in 1 week at [facility]. Please follow up with your doctor. Rest, [...] + + + | [facility] | [address] | [place], [place] | | | ZACHARIAH GRIFFITH OF [facility] | [address] | [address] | | | TESTS | | | [...] + + + + + | [facility] | [address] | [place] [address] | | | SERVICES, CORE | SKY [...] | | | | | CHRISTIANO TORRES ([id number]) | | | | | | on 03/14/2013 10:35:55 AM | | | | + + + + + + + + | Specimen | + + | | + + + + + | Narrative | Performed At | + + + | Please click | [facility] DEPT OF | | on view image for the detailed interpretation from Couple results. | CARDIOLOGY | + + + + + + + + | Performing | Address | City/State/Zipcode | Phone Number | | Organization | | | | + + + + + | [facility] DEPT [facility] | [address] | [place], [place] | | | CARDIOLOGY | [address] | [address] | | + + + + + [...] [facility] | [address] | [place], [place] | | | ZACHARIAH GRIFFITH OF CARE | [facility] | [address] | | | TESTS | | | [...] [facility] | [address] | [place] [address] | | | SERVICES, CORE | PARK [...] + + + + + | [facility] | [address] | [place] [address] | | | SERVICES, CORE | SKY [...] | | | LABORATORY | | | [place] | | | SERVICES, | | | [...] [facility] | [address] | [place] [address] | | | SERVICES, CORE | PARK [...] | + + + + + | [facility] | [address] | [place] [address] | | | SERVICES, CORE | SKY [...] + | [place] - AIRPORT - | [address] | [place] [address] | | | [place] | | | | + + + + + RAINBOW HOLD TUBE - RED TOP (03/13/2013 11:52 AM PDT) + + | Specimen | + + | Blood - Blood | + + + + + + + | Performing | Address | City/State/Zipcode | Phone Number | | Organization | | | | + + + + + | [facility] | [address] | [place] [address] | | | SERVICES, CORE | SKY [...]
--- OUTSIDE RECORDS SUMMARY | ~2020-05-03 | XMS | Encounter Summary ---
Demographics + + + | Address | [address] | | | [place] [address] | + + + | Home Phone [...] + + | Author | [place] [employer] [facility] | + + + | Organization | Replaced By [facility] [employer] [facility] | + [...] Team Providers + +------+ + | Care Dope Worker Name | Role | Phone | [...] + + | 08/24/ | Emergency | [facility] | Tylor Mcclellan, | | | 2010 | | Department [address] | Mickie Cruz | | | | | [address] | MD Joey [address] | | | | | [facility] | [facility] | | | | | [place], [place] | [place], [place] | | | | | [address] | [address] | | | | | [phone] | [phone] | | | | | | | [...] us take care of you at [facility] today. Follow up with primary care [...] | | + +---------+ + + | [facility] DEPARTMENT OF | | | | | [...]
--- OUTSIDE RECORDS SUMMARY | ~2020-05-03 | XMS | Encounter Summary ---
Demographics + + + | Address | [address] | | | [place] [address] | + + + | Home Phone [...] + + + | Author | [place] [employer] [facility] | + + + | Organization | [facility] [employer] [facility] | + + + | Address | Unknown | + + + | Phone | Unavailable | + + + Support + + +---------+ + | Name | Relationship | Address | Phone | + + +---------+ + | Ruby Au | ECON | Unknown | | + + +---------+ + Care Team Providers + +------+ + | Care Condenser Tube Tender Name | Role | Phone | + +------+ + | Brenden Benavides MD | PCP | | + +------+ + Encounter Details +--------+ + + + + | Date | Type | Department | Care Team | Description | +--------+ + + + + | 02/21/ | Telephone | [facility] | [address] | | | 2006 | | [place] | [address] | | | | | Oculoplastics at | [facility], [place] | | | | | Maicol Perez [address] | [address] | | | | | [address] | | | | | | [facility] [place] | | | | | | [facility], 5th floor | | | | | | [place] [address] | | | | | | [phone] | | | +--------+ + + + [...]
--- OUTSIDE RECORDS SUMMARY | ~2020-05-03 | XMS | Encounter Summary ---
Demographics + + + | Address | [address] | | | [place] [address] | + + + | Home Phone [...] + + + | Author | [place] [employer] [facility] | + + + | Organization | [facility] Decision [employer] [facility] | + + [...] Providers + +------+ + | Care Unit Tender Name | Role | Phone | [...] | | [facility] | [place], [place] | | | | | Health and Healing, | [address] | | | | | Building 1, 8th | | | | | | Floor [place], [place] | | | | | | [address] | | | | | | [phone] | | | +--------+ + + + [...]
--- OUTSIDE RECORDS SUMMARY | ~2020-05-03 | XMS | Encounter Summary ---
Demographics + + + | Address | [address] | | | [place] [address] | + + + | Home Phone [...] | Organization | [facility] | [...] Providers + +------+ + | Care Enterprise Services Manager Name | Role | Phone | + +------+ + PCP | Unavailable | + +------+ + Encounter Details +--------+ + + + + | Date | Type | Department | Care Team | Description | +--------+ + + + + | 06/20/ | Hospital | [facility] | Yovanny Suazo, | | | 1991 | Encounter | MED CTR WOMENS | MD [address] | | | | | [facility] [address] | [address] | | | | | [place], | [place] [address] | | | | | [place] [address] | [phone] | | | | | [phone] | | | +--------+ + + + [...]
--- OUTSIDE RECORDS SUMMARY | ~2020-05-03 | XMS | Encounter Summary ---
Demographics + + + | Address | [address] | | | [place] [address] | + + + | Home Phone [...] + + + | Author | [place] [employer] [facility] | + + + | Organization | [facility] [employer] [facility] [...] Team Providers + +------+ + | Care Scalp Treatment Specialist Name | Role | Phone | + +------+ + | Dennis Maddox | PCP | | + +------+ + Encounter Details +--------+ + + + + | Date | Type | Department | Care Team | Description | +--------+ + + + + | 02/28/ | Emergency | [facility] Emergency | | | | 2013 - | | Department [address] | | | | | | [address] | | | | 03/01/ | | [facility] | | | | 2013 | | [place], [place] | | | | | | [address] | | | | | | [phone] | | | +--------+ + + + [...]
--- OUTSIDE RECORDS SUMMARY | ~2020-05-03 | XMS | Encounter Summary ---
Demographics + + + | Address | [address] | | | [place] [address] | + + + | Home Phone [...] | Organization | [facility] | | [...] Providers + +------+ + | Care International Trade Analyst Name | Role | Phone | + +------+ + PCP | Unavailable | + +------+ + Encounter Details +--------+ + + + + | Date | Type | Department | Care Team | Description | +--------+ + + + + | 07/21/ | Hospital | [facility] | | | | 1990 | Encounter | MED CTR EMERGENCY | | | | | | CENTER [address] | | | | | | [place] | | | | | | [address] | | | | | | [phone] | | | +--------+ + + + [...]
--- OUTSIDE RECORDS SUMMARY | ~2020-05-03 | XMS | Encounter Summary ---
Demographics + + + | Address | [address] | | | [place] [address] | + + + | Home Phone [...] + + + | Author | [place] [employer] [facility] | + + + | Organization | [facility] [employer]Med[employer] [facility] | + + [...] Providers + +------+ + | Care Document Control Associate Name | Role | Phone | [...] Refill Request | | 2006 | | [place] | [address] | | | | | Oculoplastics at | Rd [place], [place] | | | | | [facility] [address] | [address] | | | | | [address] | | | | | | Eye [place] | | | | | | [facility], [address] [place] [address] | | | | | | [place] [address] | | | | | | [phone] | | | +--------+ + + + [...]
--- OUTSIDE RECORDS SUMMARY | ~2020-05-03 | XMS | Encounter Summary ---
Demographics + + + | Address | [address] | | | [place] [address] | + + + | Home Phone [...] + + + | Author | [place] [employer] [facility] | + + + | Organization | [facility] [employer] [facility] | + [...] Providers + +------+ + | Care Pipe Smoking Machine Operator Name | Role | Phone [...] Erroneous Encounter | | 2007 | | [place] for [facility] | [place] [facility] | - Disregard | | | | and Healing [address] | Neurosurgery [address] | | | | | [address] Mailcode: | [address] | | | | | [facility] for | [place], [place] | | | | | Health and Healing, | [address] | | | | | Building 1, 8th | | | | | | Floor [place], [place] | | | | | | [address] | | | | | | [phone] | | | +--------+ + + + [...]
--- OUTSIDE RECORDS SUMMARY | ~2020-05-03 | XMS | Encounter Summary ---
Demographics + + + | Address | [address] | | | [place] [address] | + + + | Home Phone [...] + + + | Author | [place] [employer] Science [facility] | + + + | Organization | [facility] [employer] [facility] | + [...] Providers + +------+ + | Care Optical Coating Technician Name | Role | Phone | [...] | | | Ave Mailcode: CH8N | [place], [place] | | | | | [facility] | [address] | | | | | and Healing, | [phone] | | | | | [facility] | | | | | | Floor [place], [place] | | | | | | [address] | | | | | | [phone] | | | +--------+ + + + [...]
--- OUTSIDE RECORDS SUMMARY | ~2020-05-03 | XMS | Encounter Summary ---
Demographics + + + | Address | [address] | | | [place] [address] | + + + | Home Phone [...] + + | Author | [place] [employer] [facility] | + + + | Organization | [facility] [employer] [facility] | + [...] Team Providers + +------+ + | Care Feather Washer Name | Role | Phone | [...] Cerebri; | | 2005 | Visit | [place] | | Common Migraine | | | | Neuro-Ophthalmology | | without Mention of | | | | [address] | | Intractable Migraine | | | | Mailcode: CEI | | | | | | [place] [address] | | | | | | [phone] | | | +--------+---------+ + + + [...] 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
--- OUTSIDE RECORDS SUMMARY | ~2020-05-03 | XMS | Encounter Summary ---
Demographics + + + | Address | [address] | | | [place] [address] | + + + | Home Phone [...] Organization | [facility] [...] Team Providers + +------+ + | Care Canvas Baster Name | Role | Phone | + +------+ + PCP | Unavailable | + +------+ + Encounter Details +--------+ + + + + | Date | Type | Department | Care Team | Description | +--------+ + + + + | 10/04/ | Hospital | [facility] | | | | 1991 | Encounter | MED CTR WOMENS | | | | | | HEALTH SV [address] | | | | | | [place], | | | | | | [place] [address] | | | | | | [phone] | | | +--------+ + + + [...]
--- OUTSIDE RECORDS SUMMARY | ~2020-05-03 | XMS | Encounter Summary ---
Demographics + + + | Address | [address] | | | [place] [address] | + + + | Home Phone [...] + + | Author | [place] [employer] [facility] | + + + | Organization | [facility] eSNF Science [facility] | [...] | | | | | | [address] | | | | | | | [facility] | | | | | | | Holder, | | | | | | | [address] [place] [address] | | | | | | | [place], [place] | | | | | | | [address] Phone: | | | | | | | [phone] | | | | | | | Fax: | | | | | | | [phone] | +--------+--------+ + + + + Encounter Details +--------+ + + + + | Date | Type | Department | Care Team | Description | +--------+ + + + + | 03/26/ | Procedure | [facility] | | Visual field testing | | 2012 | | [facility] | | | | | | [facility] at [facility] [address] | | | | [address] | | | | | | Mailcode: CH11P | | | | | | [facility] | | | | | | and Healing, | | | | | | | | | | | | [place], [place] | | | | | | [address] | | | | | | [phone] | | | +--------+ + + + [...] PDT Annabella Au was seen in the [facility] Visual [place] Department today, 2012, for 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 documented in this encounter Plan of Treatment Not on filedocumented as of this encounter Procedures + +--------+ + + + | Procedure Name | Priori | Date/Time | Associated Diagnosis | Comments | | | ty | | | | + +--------+ + + + | [place] VISUAL FIELD | Routin | 03/26/2013 | [...]
--- OUTSIDE RECORDS SUMMARY | ~2020-05-03 | XMS | Encounter Summary ---
Demographics + + + | Address | [address] | | | [place] [address] | + + + | Home Phone [...] and Services [facility] | | | and [place] | + + + | Organization | [facility] | | [...] Team Providers + +------+ + | Care Smoking Tobacco Packing Machine Hand Name | Role | Phone | + +------+ + PCP | Unavailable | + +------+ + Encounter Details +--------+ + + + + | Date | Type | Department | Care Team | Description | +--------+ + + + + | 10/25/ | Hospital | [facility] | | | | 1991 | Encounter | MED CTR EMERGENCY | | | | | | CENTER [address] | | | | | | [place] | | | | | | [address] | | | | | | [phone] | | | +--------+ + + + [...]
--- OUTSIDE RECORDS SUMMARY | ~2020-05-03 | XMS | Encounter Summary ---
Demographics + + + | Address | [address] | | | [place] [address] | + + + | Home Phone [...] | Organization | [facility] [...] Providers + +------+ + | Care Paper Making Machine Operator Name | Role | Phone | + +------+ + PCP | Unavailable | + +------+ + Encounter Details +--------+ + + + + | Date | Type | Department | Care Team | Description | +--------+ + + + + | 09/27/ | Hospital | [facility] | | | | 1991 | Encounter | MED CTR WOMENS | | | | | | HEALTH SV [address] | | | | | | [place], | | | | | | [place] [address] | | | | | | [phone] | | | +--------+ + + + [...]
--- OUTSIDE RECORDS SUMMARY | ~2020-05-03 | XMS | Encounter Summary ---
Demographics + + + | Address | [address] | | | [place] [address] | + + + | Home Phone [...] + + + | Author | [place] [employer] [facility] | + + + | Organization | [facility] [employer] Science [facility] [...] Team Providers + +------+ + | Care Core Carrier Name | Role | Phone | [...] Cerebri | | 2006 | Visit | [place] | | | | | | Photography at | | | | | | [address] | | | | | | [address] | | | | | | Eye [place], 4th | | | | | | floor [place], [place] | | | | | | [address] | | | +--------+---------+ + + + [...] PM DINOAnnabella Au was seen in the [facility] [place] Photography/Ultrasound Department today, 11/30/2006, for ultrasound OU The ultrasound did not reveal any echographic evidence of bilateral optic nerve drusen,kaminsik nayeli both optic nerve heads are elevated.The [...]
--- OUTSIDE RECORDS SUMMARY | ~2020-05-03 | XMS | Encounter Summary ---
Demographics + + + | Address | [address] | | | [place] [address] | + + + | Home Phone [...] + + + | Author | [place] [employer] Science [facility] | + + + | Organization | [facility] [employer] [facility] | + [...] Providers + +------+ + | Care Sales Review Clerk Name | Role | Phone | + +------+ + | Pedro Luis Sams MD | PCP | | + +------+ + Encounter Details +--------+ + + + + | Date | Type | Department | Care Team | Description | +--------+ + + + + | 08/31/ | Telephone | [facility] | Leticia Pitts MD | | | 2010 | | [place]/Ophthalmol | | | | | | leon at [facility] [address] | | | | | | [address]luc[address] Kirk Mailcode: | | | | | | CH11P Center for | | | | | | Health and Healing, | | | | | | [facility] | | | | | | Floor [place], [place] | | | | | | [address] | | | | | | [phone] | | | +--------+ + + + [...]
--- OUTSIDE RECORDS SUMMARY | ~2020-05-03 | XMS | Encounter Summary ---
Demographics + + + | Address | [address] | | | [place] [address] | + + + | Home Phone [...] + + + | Author | [place] [employer] [facility] | + + + | Organization | [facility] [employer] Science [facility] | + + [...] Providers + +------+ + | Care Line Up Machine Operator Name | Role | [...] [address] | | | | | | [place], [place] | | | | | | [address] | | | +--------+ + + + [...]
--- OUTSIDE RECORDS SUMMARY | ~2020-05-03 | XMS | Encounter Summary ---
Demographics + + + | Address | [address] | | | [place] [address] | + + + | Home Phone [...] + + + | Author | [place] [employer] [facility] | + + + | Organization | [facility] | [...] Team Providers + +------+ + | Care Scanning Coordinator Name | Role | Phone | [...] Cerebri | | 2005 | Visit | [place] | | (Primary Dx) | | | | Neuro-Ophthalmology | | | | | | [address] [facility] | | | | | | Mailcode: PATTI | | | | | | [place] [address] | | | | | | [phone] | | | +--------+---------+ + + + [...] Brad Currie MD Neuro-Ophthalmology and Cerebrovascular Disease Environmental Health And Safety Leader of Ophthalmology, Neurology, and Neurosurgery documented in [...]
--- OUTSIDE RECORDS SUMMARY | ~2020-05-03 | XMS | Encounter Summary ---
Demographics + + + | Address | [address] | | | [place] [address] | + + + | Home Phone [...] + | Organization | [facility] [...] Team Providers + +------+ + | Care Saw Repairer Name | Role | Phone | + +------+ + PCP | Unavailable | + +------+ + Encounter Details +--------+ + + + + | Date | Type | Department | Care Team | Description | +--------+ + + + + | 06/19/ | Hospital | [facility] | | | | 1991 | Encounter | MED CTR WOMENS | | | | | | HEALTH SV [address] | | | | | | [place], | | | | | | [place] [address] | | | | | | [phone] | | | +--------+ + + + [...]
--- OUTSIDE RECORDS SUMMARY | ~2020-05-03 | XMS | Encounter Summary ---
Demographics + + + | Address | [address] | | | [place] [address] | + + + | Home Phone [...] + + | Author | [place] [employer] Science [facility] | + + + | Organization | [facility] [employer] Science [facility] [...] Team Providers + +------+ + | Care Radiology Teacher Name | Role | Phone | [...] Operative Report | | 2006 | | [facility] [address] | | | | | Transcribed | [address] | | | | | | Mailcode: Center | | | | | | for Health and | | | | | | Healing, [facility] 2 | | | | | | [place], [place] | | | | | | [address] | | | | | | [phone] | | | +--------+ + + + [...] | 02/07/2007 12:00 AM PDT | | [id number] | | [id number] [place] [id number] | | | | Date: 02/07/2007 | | | | Attending Surgeon: Hay Hughes M.D. | | | | Facial Operator(s): Pascual Bermudez M.D. | | | [...] and medial orbital | | septum. The assistant professor of psychology retracted the orbital fat bag with a [...] | | KYM / LANETTE | | [id number] / [id number] / [id number] / [id number] | | | | | | | | cc: | | | | | | Brad Currie M.D. | | [facility] [place] | | | | | | Brenden Benavides M.D. | | [facility] | | [address] | | [place] [address] | | | | | | Electronically signed by Hya Hughes 02-12-2007 05:13:05 PM | | | | | + + documented in this encounter Visit Diagnoses Not on filedocumented in this encounter"
--- OUTSIDE RECORDS SUMMARY | ~2020-05-03 | XMS | Encounter Summary ---
Demographics + + + | Address | [address] | | | [place] [address] | + + + | Home Phone [...] + + + | Author | [place] [employer] Science [facility] | + + + | Organization | [facility] [employer] Science [facility] [...] Providers + +------+ + | Care Hand Braille Transcriber Name | Role | Phone | + +------+ + | Yeison Simms MD | PCP | Unavailable | + +------+ + Reason for Visit + + + | Reason | Comments | + + + | Refill Request | refill on [place] | + + + Encounter Details +--------+--------+ + + + | Date | Type | Department | Care Team | Description | +--------+--------+ + + + | 08/27/ | Refill | Neurosurgery at | Sam Pedroza MD | Refill Request | | 2007 | | [facility] [address] | [address] | (refill on Grant) | | | | Ave Mailcode: CH8N | [place], [place] | | | | | [facility] | [address] | | | | | and Healing, | [phone] | | | | | [facility] | | | | | | Floor [place], [place] | | | | | | [address] | | | | | | [phone] | | | +--------+--------+ + + + [...]
--- OUTSIDE RECORDS SUMMARY | ~2020-05-03 | XMS | Encounter Summary ---
Demographics + + + | Address | [address] | | | [place] [address] | + + + | Home Phone [...] + + | Author | [place] [employer] Science [facility] | + + + | Organization | [facility] [facility] | + [...] Team Providers + +------+ + | Care Fur Dressing Supervisor Name | Role | Phone | [...] Cerebri; | | 2006 | Visit | [place] | Cassi Clark | Pain in or Around | | | | Oculoplastics at | [place], [place] | Eye | | | | [address] | [address] | | | | | [address] | [phone] | | | | | Eye [place] | | | | | | [facility] floor | | | | | | [place] [address] | | | | | | [phone] | | | +--------+---------+ + + + [...] to be seen here or by an cloth mercerizer back tender in [facility], but she says she does not have transportation. I will call in Vicodin #20, pt to call i mmediately if there is any worsening. Pt states lucho lump in left baptism is gone. No pain. Pt. Had cough [...]
--- OUTSIDE RECORDS SUMMARY | ~2020-05-03 | XMS | Encounter Summary ---
Demographics + + + | Address | [address] | | | [place] [address] | + + + | Home Phone [...] + + + | Author | [place] [employer] Science [facility] | + + + | Organization | [facility] [employer] Science [facility] | + [...] Providers + +------+ + | Care Slot Floorman Name | Role | Phone | + [...] | Headache | | 2005 | | [place]/Ophthalmol | MD Jordin | | | | | leon at [facility] [address] | | | | | | [address] Mailcode: | | | | | | CH11P [facility] | | | | | | Health and Healing, | | | | | | Building | | | | | | Floor [place], [place] | | | | | | [address] | | | | | | [phone] | | | +--------+ + + + [...]
--- OUTSIDE RECORDS SUMMARY | ~2020-05-03 | XMS | Encounter Summary ---
Demographics + + + | Address | [address] | | | [place] [address] | + + + | Home Phone [...] | Organization | [facility] [...] Team Providers + +------+ + | Care Mixing Machine Tender Name | Role | Phone | + +------+ + PCP | Unavailable | + +------+ + Encounter Details +--------+ + + + + | Date | Type | Department | Care Team | Description | +--------+ + + + + | 07/30/ | Hospital | [facility] | | | | 2008 - | Encounter | MED CTR MED ONC | | | | | | [address] | | | | 08/02/ | | [place] [address] | | | | 2008 | | [phone] | | | +--------+ + + + [...]
--- OUTSIDE RECORDS SUMMARY | ~2020-05-03 | XMS | Encounter Summary ---
Demographics + + + | Address | [address] | | | [place] [address] | + + + | Home Phone [...] + + | Author | [place] [employer] Science [facility] | + + + | Organization | P[facility] [employer] [facility] [...] Providers + +------+ + | Care Sales Merchandising Specialist Name | Role | Phone | [...] | | | Ave Mailcode: CH8N | [place], [place] | | | | | [facility] | [address] | | | | | and [place], | [phone] | | | | | [facility] | | | | | | Floor [place], [place] | | | | | | [address] | | | | | | [phone] | | | +--------+ + + + [...]
--- OUTSIDE RECORDS SUMMARY | ~2020-05-03 | XMS | Encounter Summary ---
Demographics + + + | Address | [address] | | | [place] [address] | + + + | Home Phone [...] Collaborative & [facility] | [...] Team Providers + +------+ + | Care Splitting Machine Operator Helper Name | Role | Phone | + +------+ + PCP | Unavailable | + +------+ + Encounter Details +--------+ + + + + | Date | Type | Department | Care Team | Description | +--------+ + + + + | 08/10/ | Hospital | [facility] | | | | 1990 | Encounter | MED CTR EMERGENCY | | | | | | CENTER [address] | | | | | | [place] | | | | | | [address] | | | | | | [phone] | | | +--------+ + + + [...]
--- OUTSIDE RECORDS SUMMARY | ~2020-05-03 | XMS | Encounter Summary ---
Demographics + + + | Address | [address] | | | [place] [address] | + + + | Home Phone [...] + + + | Author | [place] [employer] [facility] | + + + | Organization | [facility] [employer] Science [facility] | + + + | Address | Unknown | + + + | Phone | Unavailable | + + + Support + + +---------+ + | Name | Relationship | Address | Phone | + + +---------+ + | Ruby Au | ECON | Unknown | | + + +---------+ + Care Team Providers + +------+ + | Care Product Marketing Consultant Name | Role | Phone | [...] | | | Ave Mailcode: CH8N | [place], [place] | | | | | [facility] | [address] | | | | | and Healing, | [phone] | | | | | [facility] | | | | | | Floor [place], [place] | | | | | | [address] | | | | | | [phone] | | | +--------+ + + + [...]
--- OUTSIDE RECORDS SUMMARY | ~2020-05-03 | XMS | Encounter Summary ---
Demographics + + + | Address | [address] | | | [place] [address] | + + + | Home Phone | | + + + | Preferred Language | Unknown | + + + | Marital Status | | + + + | Nondenominational Affiliation | Unknown | + + + | Race | Unknown | + + + | Ethnic Group | Unknown | + + + Author + + + | Author | [facility] | | | and [place] | + + + | Organization | [facility] | | [...] Providers + +------+ + | Care Manager Study Name | Role | Phone | + +------+ + PCP | Unavailable | + +------+ + Encounter Details +--------+ + + + + | Date | Type | Department | Care Team | Description | +--------+ + + + + | 01/15/ | Hospital | [facility] | [place] | | | 2011 | Encounter | MED CTR EMERGENCY | DO Gaurang Drake | | | | | [address] | [place], [place] | | | | | [place], [place] | [address] | | | | | [address] | | | | | | [phone] | | | +--------+ + + + [...]
--- OUTSIDE RECORDS SUMMARY | ~2020-05-03 | XMS | Encounter Summary ---
Demographics + + + | Address | [address] | | | [place] [address] | + + + | Home Phone [...] | Organization | [facility] | [...] Providers + +------+ + | Care Director School Of Nursing Name | Role | Phone | + [...] [address] | | | | | [place] [address] | [facility] | | | | | [address] [place] [place] | [place] [address] | | | | | [address] | [phone] | | | | | [phone] | | | +--------+ + + + [...]
--- OUTSIDE RECORDS SUMMARY | ~2020-05-03 | XMS | Encounter Summary ---
Demographics + + + | Address | [address] | | | [place] [address] | + + + | Home Phone [...] Organization | [facility] | | | [...] Team Providers + +------+ + | Care Blunger Loader Name | Role | Phone | + +------+ + PCP | Unavailable | + +------+ + Encounter Details +--------+ + + + + | Date | Type | Department | Care Team | Description | +--------+ + + + + | 09/07/ | Hospital | [facility] | | | | 1991 | Encounter | MED CTR EMERGENCY | | | | | | CENTER [address] | | | | | | [place] | | | | | | [address] | | | | | | [phone] | | | +--------+ + + + [...]
--- OUTSIDE RECORDS SUMMARY | ~2020-05-03 | XMS | Encounter Summary ---
Demographics + + + | Address | [address] | | | [place] [address] | + + + | Home Phone [...] + + + | Author | [place] [employer] [facility] | + + + | Organization | [facility] [employer] [facility] | + + + | Address | Unknown | + + + | Phone | Unavailable | + + + Support + + +---------+ + | Name | Relationship | Address | Phone | + + +---------+ + | Ruby Au | ECON | Unknown | | + + +---------+ + Care Team Providers + +------+ + | Care Sizing Machine And Drier Operator Name | Role | Phone | [...] | Headache | | 2005 | | [place]/Ophthalmol | MD Jordin | | | | | leon at [facility] [address] | | | | | | [address] Mailcode: | | | | | | CH[address]P [facility] | | | | | | Health and Healing, | | | | | | Building | | | | | | Floor [place], [place] | | | | | | [address] | | | | | | [phone] | | | +--------+ + + + [...]
--- OUTSIDE RECORDS SUMMARY | ~2020-05-03 | XMS | Encounter Summary ---
Demographics + + + | Address | [address] | | | [place] [address] | + + + | Home Phone [...] + + + | Author | [place] [employer] Science [facility] | + + + | Organization | [facility] [employer] [facility] [...] Providers + +------+ + | Care Editor Name | Role | Phone | [...] ) | | | | Physician's | [place], [place] | | | | | Pavilion, 2nd floor | [address] | | | | | [place], [place] | [phone] | | | | | [address] | | | | | | [phone] | | | +--------+ + + + [...]
--- OUTSIDE RECORDS SUMMARY | ~2020-05-03 | XMS | Encounter Summary ---
Demographics + + + | Address | [address] | | | [place] [address] | + + + | Home Phone [...] + + + | Author | [place] [employer] Science [facility] | + + + | Organization | [facility] [employer] [facility] | + [...] Team Providers + +------+ + | Care Archives Specialist Name | Role | Phone | [...] | | | | | | [address] [place], [place] | | | | | | [address] | | | | | | [phone] | | | +--------+ + + + [...]
--- OUTSIDE RECORDS SUMMARY | ~2020-05-03 | XMS | Encounter Summary ---
Demographics + + + | Address | [address] | | | [place] [address] | + + + | Home Phone [...] | Organization | [facility] | | | and [place] [...] Team Providers + +------+ + | Care Package Line Relief Operator Name | Role | Phone | [...] | | [place] | [place] [address] | | | | | [address] | | | | | | [phone] | | | +--------+ + + + [...]
--- OUTSIDE RECORDS SUMMARY | ~2020-05-03 | XMS | Encounter Summary ---
Demographics + + + | Address | [address] | | | [place] [address] | + + + | Home Phone [...] + + + | Author | [place] [employer] [facility] | + + + | Organization | [facility] [employer] [facility] | + + + | Address | Unknown | + + + | Phone | Unavailable | + + + Support + + +---------+ + | Name | Relationship | Address | Phone | + + +---------+ + | Ruby Au | ECON | Unknown | | + + +---------+ + Care Team Providers + +------+ + | Care Underwater Trapper Name | Role | Phone | [...] | | | Ave Mailcode: CH8N | [place], [place] | | | | | [facility] | [address] | | | | | and [facility], | [phone] | | | | | [facility] | | | | | | Floor [place], [place] | | | | | | [address] | | | | | | [phone] | | | +--------+ + + + [...]
--- OUTSIDE RECORDS SUMMARY | ~2020-05-03 | XMS | Encounter Summary ---
Demographics + + + | Address | [address] | | | [place] [address] | + + + | Home Phone [...] + + + | Author | [place] [employer] [facility] | + + + | Organization | [facility] [employer] Science [facility] | + + [...] Providers + +------+ + | Care Tube Bender Hand Name | Role | Phone | [...] | | | REFERRAL TO | | [place], [place] | | | | | NEUROINTERVE | | [address] | | | | | NTIONAL | | Phone: | | | | | RADIOLOGY | | [phone] | | | | | PRACTICE | | Fax: | | | | | | | [phone] | +--------+--------+ + + + + Reason [...] Dx) | | | | Mailcode:OP14B | [place], [place] | | | | | Outpatient Clinic | [address] | | | | | Building [place], | [phone] | | | | | [place] [address] | | | | | | [phone] | | | +--------+---------+ + + + [...] resident s note. CASIMIRO PAYTON MD NEUROSURGERY [facility] [place] [address] Pascual Ballard - 12:00 PM [...] spots" and "tunnel vision." Last saw an hand chain maker in [facility] 2 months ago. Reportedl y, this showed that her OS vision was worse - no reports available to me at this time. Was a lso admitted to the [facility] for CAPONE about a month [...] Patient was also given a prescription for [place] for CAPONE until she establishs care with [...]
--- OUTSIDE RECORDS SUMMARY | ~2020-05-03 | XMS | Encounter Summary ---
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 Visual Acuity: [facility] RE 20/20-1 LE 20/25-2 NI Pupil: [...]
--- OUTSIDE RECORDS SUMMARY | ~2020-05-03 | XMS | Encounter Summary ---
Demographics + + + | Address | [address] | | | [place] [address] | + + + | Home Phone [...] Organization | [facility] | | [...] Team Providers + +------+ + | Care Asset Card Clerk Name | Role | Phone | + +------+ + PCP | Unavailable | + +------+ + Encounter Details +--------+ + + + + | Date | Type | Department | Care Team | Description | +--------+ + + + + | 07/06/ | Hospital | [facility] | Mirna Lambert | | | 2007 | Encounter | MED CTR EMERGENCY | MD Kwaku Gregory | | | | | CARL [address] | [facility] | | | | | [place] | [place] [address] | | | | | [address] | [phone] | | | | | [phone] | | | +--------+ + + + [...]
--- OUTSIDE RECORDS SUMMARY | ~2020-05-03 | XMS | Encounter Summary ---
Demographics + + + | Address | [address] | | | [place] [address] | + + + | Home Phone [...] | [facility] | | | and [place] [...] Team Providers + +------+ + | Care Boom Stick Man Name | Role | Phone | + +------+ + PCP | Unavailable | + +------+ + Encounter Details +--------+ + + + + | Date | Type | Department | Care Team | Description | +--------+ + + + + | 10/21/ | Hospital | [facility] | | | | 1991 | Encounter | MED CTR WOMENS | | | | | | HEALTH SV [address] | | | | | | [place], | | | | | | [place] [address] | | | | | | [phone] | | | +--------+ + + + [...]
--- OUTSIDE RECORDS SUMMARY | ~2020-05-03 | XMS | Encounter Summary ---
Demographics + + + | Address | [address] | | | [place] [address] | + + + | Home Phone [...] + + + | Author | [place] [employer] [facility] | + + + | Organization | [facility] [employer] [facility] [...] Providers + +------+ + | Care Ore Smelter Name | Role | Phone | + [...] Cerebri | | 2006 | Visit | [place] | | (Primary Dx) | | | | Neuro-Ophthalmology | | | | | | [address] [facility] | | | | | | Mailcode: PATTI | | | | | | [place] [address] | | | | | | [phone] | | | +--------+---------+ + + + [...] documented as of this encounter Progress Notes [place] - 11/30/2006 11:58 AM PSTFormatting of this [...] Brad Currie MD Neuro-Ophthalmology and Cerebrovascular Disease Radioisotope Technologist of Ophthalmology, Neurology, and Neurosurgery documented in [...]
--- OUTSIDE RECORDS SUMMARY | ~2020-05-03 | XMS | Encounter Summary ---
Demographics + + + | Address | [address] | | | [place] [address] | + + + | Home Phone [...] + + | Author | [place] [employer] [facility] | + + + | Organization | [facility] [employer]Inter[employer] Special[employer] Science [facility] [...] Providers + +------+ + | Care Senior Enterprise Architect Name | Role | Phone | [...] [id number] | | | | | [facility] | [address] | | | | | and Healing, | [place], [place] | | | | | Building | [address] | | | | | Floor [place], [place] | | | | | | [address] | | | | | | [phone] | | | +--------+---------+ + + + [...]
--- OUTSIDE RECORDS SUMMARY | ~2020-05-03 | XMS | Encounter Summary ---
Demographics + + + | Address | [address] | | | [place] [address] | + + + | Home Phone [...] + + + | Author | [place] [employer] [facility] | + + + | Organization | [facility] [employer] Science [facility] | + + [...] Providers + +------+ + | Care Car Electronics Installer Name | Role | Phone | [...] [id number] | MD [address] | | | | | [place] Mailcode: CH8N | [address] [facility] | | | | | [facility] | Rd [place], [place] | | | | | and Healing, | [address] | | | | | Building | [phone] | | | | | Floor [place], [place] | | | | | | [address] | | | | | | [phone] | | | +--------+ + + + [...]
--- OUTSIDE RECORDS SUMMARY | ~2020-05-03 | XMS | Encounter Summary ---
Demographics + + + | Address | [address] | | | [place] [address] | + + + | Home Phone [...] + | Organization | [facility] | | | and [place] [...] Team Providers + +------+ + | Care Aging Room Operator Name | Role | Phone | + +------+ + PCP | Unavailable | + +------+ + Encounter Details +--------+ + + + + | Date | Type | Department | Care Team | Description | +--------+ + + + + | 10/04/ | Hospital | [facility] | | | | 1991 | Encounter | MED CTR [facility] | | | | | | HEALTH SV [address] | | | | | | [place], | | | | | | [place] [address] | | | | | | [phone] | | | +--------+ + + + [...]
--- OUTSIDE RECORDS SUMMARY | ~2020-05-03 | XMS | Encounter Summary ---
Demographics + + + | Address | [address] | | | [place] [address] | + + + | Home Phone [...] + | Organization | [facility] | [...] Team Providers + +------+ + | Care Veterinary Parasitologist Name | Role | Phone | + +------+ + PCP | Unavailable | + +------+ + Encounter Details +--------+ + + + + | Date | Type | Department | Care Team | Description | +--------+ + + + + | 08/03/ | Hospital | [facility] | | | | 1990 | Encounter | MED CTR EMERGENCY | | | | | | CENTER [address] | | | | | | [place] | | | | | | [address] | | | | | | [phone] | | | +--------+ + + + [...]
--- OUTSIDE RECORDS SUMMARY | ~2020-05-03 | XMS | Encounter Summary ---
Demographics + + + | Address | [address] | | | [place] [address] | + + + | Home Phone [...] + + | Author | [place] [employer] [facility] | + + + | Organization | [facility] [employer] [facility] [...] Team Providers + +------+ + | Care Electrical/Instrument Technician Name | Role | Phone | [...] | | [place] Mailcode:OP14B | [place], | | | | | [place] | [place] [address] | | | | | [place], [place] | | | | | | [address] | | | | | | [phone] | | | +--------+ + + + [...]
--- OUTSIDE RECORDS SUMMARY | ~2020-05-03 | XMS | Encounter Summary ---
Demographics + + + | Address | [address] | | | [place] [address] | + + + | Home Phone [...] + + + | Author | [place] Cittad[employer] Science [facility] | + + + | Organization | [facility] [employer] Science [facility] [...] + +------+ + | Care Enrobing Machine Corder Name | Role | Phone | + [...] | | | | | Physician's | [place], [place] | | | | | [facility], [facility] floor | [address] | | | | | [place], [place] | [phone] | | | | | [address] | | | | | | [phone] | | | +--------+ + + + [...]
--- OUTSIDE RECORDS SUMMARY | ~2020-05-03 | XMS | Encounter Summary ---
Demographics + + + | Address | [address] | | | [place] [address] | + + + | Home Phone [...] | Organization | [facility] [...] Team Providers + +------+ + | Care Athletic Agent Name | Role | Phone | + +------+ + PCP | Unavailable | + +------+ + Encounter Details +--------+ + + + + | Date | Type | Department | Care Team | Description | +--------+ + + + + | 07/10/ | Emergency | [facility] | Perry Flores | Headache; Benign | | 2012 | | MEDICAL CENTER | [place] [address] | intracranial | | | | EMERGENCY CENTER | [address] | hypertension; Back | | | | [address] | [place] [address] | pain | | | | [place], [place] | [phone] | | | | | [address] | | | | | | [phone] | | | +--------+ + + + [...] | + + + | ANNABELLA [facility] HEAD WO CONTRAST HISTORY: 37 [...]
--- OUTSIDE RECORDS SUMMARY | ~2020-05-03 | XMS | Encounter Summary ---
Demographics + + + | Address | [address] | | | [place] [address] | + + + | Home Phone [...] | [facility] | | | and [place] | [...] Team Providers + +------+ + | Care Acute Dialysis Registered Nurse Name | Role | Phone | + +------+ + PCP | Unavailable | + +------+ + Encounter Details +--------+ + + + + | Date | Type | Department | Care Team | Description | +--------+ + + + + | 09/30/ | Hospital | [facility] | | | | 1991 | Encounter | MED CTR [facility] | | | | | | HEALTH SV [address] | | | | | | [place], | | | | | | [place] [address] | | | | | | [phone] | | | +--------+ + + + [...]
--- OUTSIDE RECORDS SUMMARY | ~2020-05-03 | XMS | Encounter Summary ---
Demographics + + + | Address | [address] | | | [place] [address] | + + + | Home Phone [...] + + + | Author | [place] [employer] [facility] | + + + | Organization | [facility] [employer] [facility] | + [...] Providers + +------+ + | Care Director Consumer Name | Role | Phone | + [...] Request (Pt | | 2006 | | [place] | [address] | requests more pain | | | | Oculoplastics at | [place], [place] | medication) | | | | [address] | [address] | | | | | [address] | [phone] | | | | | Eye [place] | | | | | | [facility] floor | | | | | | [place] [address] | | | | | | [phone] | | | +--------+--------+ + + + [...]
--- OUTSIDE RECORDS SUMMARY | ~2020-05-03 | XMS | Encounter Summary ---
Demographics + + + | Address | [address] | | | [place] [address] | + + + | Home Phone [...] + + + | Author | [place] [employer] Science [facility] | + + + | Organization | [facility] [employer] [facility] | + [...] Team Providers + +------+ + | Care Global Recruiter Name | Role | Phone | [...] | | | Ave Mailcode: CH8N | [place], [place] | | | | | [facility] | [address] | | | | | and Healing, | [phone] | | | | | [facility] | | | | | | Floor [place], [place] | | | | | | [address] | | | | | | [phone] | | | +--------+ + + + [...]
--- OUTSIDE RECORDS SUMMARY | ~2020-05-03 | XMS | Encounter Summary ---
Demographics + + + | Address | [address] | | | [place] [address] | + + + | Home Phone [...] + + + | Author | [place] CM Sistemi Science [facility] | + + + | Organization | [facility] [employer] [facility] [...] Providers + +------+ + | Care Industrial Ecology Technician Name | Role | Phone | [...] | | | Ave Mailcode: CH8N | [place], [place] | | | | | [facility] | [address] | | | | | and Healing, | [phone] | | | | | [facility] | | | | | | Floor [facility] [place] | | | | | | [address] | | | | | | [phone] | | | +--------+---------+ + + + [...]
--- OUTSIDE RECORDS SUMMARY | ~2020-05-03 | XMS | Encounter Summary ---
Demographics + + + | Address | [address] | | | [place] [address] | + + + | Home Phone [...] + + + | Author | [place] [employer] [facility] | + + + | Organization | [facility] [employer] Science [facility] | [...] Providers + +------+ + | Care Product Expert Name | Role | Phone | [...] | Visit | Medicine Clinic at | STEREOTYPER HELPER [address] [facility] | Pre-Operative | | | | [facility] 4th Floor [address] | Examination (Primary | | | | [address] | [place], [place] | Dx); Pseudotumor | | | | Mailcode: CH4S | [address] | Cerebri; Encounter | | | | [facility] | [phone] | for Long-Term | | | | and Healing, | | (Current) Use of | | | | Building 1,4th Floor | | Anticoagulants | | | | [place], [place] | | | | | | [address] | | | | | | [phone] | | | +--------+---------+ + + + [...] [facility],[address] [place] [address] documented in this encou nter Plan of Treatment + + +--------+ + + | Name | Type | Priori | Associated Diagnoses | Order Schedule | | | | ty | | | + + +--------+ + + | TX COLLECTION VENOUS | Procedures | Routin | [...] | + + + + + | [facility] DEPARTMENT OF | [address] [facility] | [place] [address] | | | PATHOLOGY | [address] | | | + + + + + | [facility] DEPARTMENT OF | [address] [facility] | [place] [address] | | | PATHOLOGY | [address] [...] | + + + + + | [facility] | [address] | [place] [address] | | | PATHOLOGY | [address] | | | + + + + + | [facility] | [address] | [place] [address] | | | PATHOLOGY | [address] [...] | + + + + + | [facility] | [address] [facility] | [place] [address] | | | PATHOLOGY | [address] | | | + + + + + | [facility] | [address] [facility] | [place] [address] | | | PATHOLOGY | [address] [...] | + + + + + | [facility] | [address] [facility] | [place] [address] | | | PATHOLOGY | [address] | | | + + + + + | [facility] | [address] [place] [address] | [place] [address] | | | PATHOLOGY | [address] [...] Performed At | + + + | [id number] Estimated GFR > 60 mL/min/1.73 sq m if non- | [facility] | | [place] African [id number] Estimated GFR > 60 mL/min/1.73 sq m if | DEPARTMENT OF | | [place] GFR is estimated using the MDRD equation [...] | + + + + + | [facility] DEPARTMENT OF | [address] | [place] [address] | | | PATHOLOGY | [address] | | | + + + + + | [facility] DEPARTMENT OF | [address] | [place] [address] | | | PATHOLOGY | [address] [...] | + + + + + | [facility] DEPARTMENT OF | [address] | [place] [address] | | | PATHOLOGY | [address] | | | + + + + + | [facility] | [address] | [place] [address] | | | PATHOLOGY | [address] | | | + + + + + documented in this encounter Visit Diagnoses + + | Diagnosis | + + | Other specified pre-operative examination - Primary | + + | Pseudotumor cerebri Benign intracranial hypertension | + + | intermediate frame tender (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
--- OUTSIDE RECORDS SUMMARY | ~2020-05-03 | XMS | Encounter Summary ---
Demographics + + + | Address | [address] | | | [place] [address] | + + + | Home Phone [...] + + + | Author | [place] [employer] Science [facility] | + + + | Organization | [facility] [employer] Science [facility] [...] Providers + +------+ + | Care Production Recovery Operator Name | Role | Phone | [...] | | | Ave Mailcode: CH8N | [place], [place] | | | | | [facility] | [address] | | | | | and Healing, | [phone] | | | | | [facility] | | | | | | Floor [place], [place] | | | | | | [address] | | | | | | [phone] | | | +--------+--------+ + + + [...]
--- OUTSIDE RECORDS SUMMARY | ~2020-05-03 | XMS | Encounter Summary ---
Demographics + + + | Address | [address] | | | [place] [address] | + + + | Home Phone [...] | Organization | [facility] [...] Team Providers + +------+ + | Care Closed Circuit Screen Watcher Name | Role | Phone | + +------+ + PCP | Unavailable | + +------+ + Encounter Details +--------+ + + + + | Date | Type | Department | Care Team | Description | +--------+ + + + + | 04/21/ | Hospital | [facility] | | | | 1995 | Encounter | MED CTR EMERGENCY | | | | | | CENTER [address] | | | | | | [place] | | | | | | [address] | | | | | | [phone] | | | +--------+ + + + [...]
--- OUTSIDE RECORDS SUMMARY | ~2020-05-03 | XMS | Encounter Summary ---
Demographics + + + | Address | [address] | | | [place] [address] | + + + | Home Phone [...] + + | Author | [place] [employer]r Science [facility] | + + + | Organization | [facility] [employer] [facility] [...] Providers + +------+ + | Care Applied Psychology Teacher Name | Role | Phone | [...] | | | Ave Mailcode: CH8N | [place], [place] | | | | | [facility] | [address] | | | | | and Healing, | [phone] | | | | | [facility] | | | | | | Floor [place], [place] | | | | | | [address] | | | | | | [phone] | | | +--------+---------+ + + + [...] wanted to have LP shunt instead of FACTORY FOCUS TECHNICIAN shunt because she d oes not [...]
--- OUTSIDE RECORDS SUMMARY | ~2020-05-03 | XMS | Encounter Summary ---
Demographics + + + | Address | [address] | | | [place] [address] | + + + | Home Phone [...] Organization | [facility] | [...] Team Providers + +------+ + | Care Towel Rolling Machine Operator Name | Role | Phone | + +------+ + PCP | Unavailable | + +------+ + Encounter Details +--------+ + + + + | Date | Type | Department | Care Team | Description | +--------+ + + + + | 07/24/ | Hospital | [facility] | | | | 1990 | Encounter | MED CTR EMERGENCY | | | | | | CENTER [address] | | | | | | [place] | | | | | | [address] | | | | | | [phone] | | | +--------+ + + + [...]
--- OUTSIDE RECORDS SUMMARY | ~2020-05-03 | XMS | Encounter Summary ---
Demographics + + + | Address | [address] | | | [place] [address] | + + + | Home Phone [...] + + + | Author | [place] [employer] Science [facility] | + + + | Organization | [facility] [employer] Science [facility] | + [...] Team Providers + +------+ + | Care Solutions Sales Consultant Name | Role | Phone [...] [facility] | [place], [place] | | | | | Health and Healing, | [address] | | | | | Building 1, 8th | | | | | | Floor [place], [place] | | | | | | [address] | | | | | | [phone] | | | +--------+ + + + [...]
--- OUTSIDE RECORDS SUMMARY | ~2020-05-03 | XMS | Encounter Summary ---
Demographics + + + | Address | [address] | | | [place] [address] | + + + | Home Phone [...] + + + | Author | [place] [employer] Science [facility] | + + + | Organization | [facility] [employer] Science [facility] | + + [...] Providers + +------+ + | Care Coal Bagger Name | Role | Phone | + [...] CH8N | | | | | | [facility] | | | | | | and Healing, | | | | | | Building 1, [address]th | | | | | | Floor [place], [place] | | | | | | [address] | | | | | | [phone] | | | +--------+ + + + [...]
--- OUTSIDE RECORDS SUMMARY | ~2020-05-03 | XMS | Encounter Summary ---
Demographics + + + | Address | [address] | | | [place] [address] | + + + | Home Phone [...] | Organization | [facility] | | [...] Providers + +------+ + | Care Clay Transporter Name | Role | Phone | + +------+ + PCP | Unavailable | + +------+ + Encounter Details +--------+ + + + + | Date | Type | Department | Care Team | Description | +--------+ + + + + | 04/24/ | Hospital | [facility] | | | | 1991 | Encounter | MED CTR EMERGENCY | | | | | | CENTER [address] | | | | | | [place] | | | | | | [address] | | | | | | [phone] | | | +--------+ + + + [...]
--- OUTSIDE RECORDS SUMMARY | ~2020-05-03 | XMS | Encounter Summary ---
Demographics + + + | Address | [address] | | | [place] [address] | + + + | Home Phone [...] + + + | Author | [place] [employer] [facility] | + + + | Organization | [facility] [email or web address] Science [facility] | + [...] Providers + +------+ + | Care Supervisor Electric Motor Testing Name | Role | Phone | + [...] | Visit | Medicine Clinic at | WASTE SALVAGER [address] [facility] | Pre-Operative | | | | [facility] 4th Floor [address] | Examination (Primary | | | | [address] | [place], [place] | Dx); Pseudotumor | | | | Mailcode: CH4S | [address] | Cerebri; Encounter | | | | [facility] | [phone] | for Long-Term | | | | and Healing, | | (Current) Use of | | | | Building 1,4th Floor | | Anticoagulants | | | | [place], [place] | | | | | | [address] | | | | | | [phone] | | | +--------+---------+ + + + [...] Scanned [facility]. [facility],[address] [place] [address] documented in this encou nter Plan of Treatment + + +--------+ + + | Name | Type | Priori | Associated Diagnoses | Order Schedule | | | | ty | | | + + +--------+ + + | NH COLLECTION VENOUS | Procedures | Routin | [...] + + + + + | [facility] DEPARTMENT OF | [address] [facility] | [place] [address] | | | PATHOLOGY | [address] | | | + + + + + | [facility]MENT [facility] | [address] [facility] | [place] [address] | | | PATHOLOGY | [address] [...] + + + + | [facility] | [address] | [place] [address] | | | PATHOLOGY | [address] | | | + + + + + | [facility] | [address] | [place] [address] | | | PATHOLOGY | [address] [...] + + + + | [facility] | [address] [facility] | [place] [address] | | | PATHOLOGY | [address] | | | + + + + + | [facility] | [address] [facility] | [place] [address] | | | PATHOLOGY | [address] [...] + + + + | [facility] | [address] [facility] | [place] [address] | | | PATHOLOGY | [address] | | | + + + + + | [facility] | [address] [place] [address] | [place] [address] | | | PATHOLOGY | [address] [...] Performed At | + + + | [id number] Estimated GFR > 60 mL/min/1.73 sq m if non- | [facility] | | [place] [id number] Estimated GFR > 60 mL/min/1.73 sq m if | DEPARTMENT OF | | [place] GFR is estimated using the MDRD equation [...] + + + + + | [facility] DEPARTMENT OF | [address] | [place] [address] | | | PATHOLOGY | [address] | | | + + + + + | [facility]MENT [facility] | [address] | [place] [address] | | | PATHOLOGY | [address] [...] + + + + + | [facility] DEPARTMENT OF | [address] | [place] [address] | | | PATHOLOGY | [address] | | | + + + + + | [facility] | [address] | [place] [address] | | | PATHOLOGY | [address] | | | + + + + + documented in this encounter Visit Diagnoses + + | Diagnosis | + + | Other specified pre-operative examination - Primary | + + | Pseudotumor cerebri Benign intracranial hypertension | + + | 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
--- OUTSIDE RECORDS SUMMARY | ~2020-05-03 | XMS | Encounter Summary ---
Demographics + + + | Address | [address] | | | [place] [address] | + + + | Home Phone [...] + + + | Author | [place] [employer] [facility] | + + + | Organization | [facility] [employer] [facility] | + [...] Team Providers + +------+ + | Care Stocklayer Name | Role | Phone | + [...] | Headache | | 2005 | | [place]/Ophthalmol | MD Jordin | | | | | leon at [facility] [address] | | | | | | [address] Mailcode: | | | | | | CH11P [facility] | | | | | | Health and Healing, | | | | | | Building | | | | | | Floor [place], [place] | | | | | | [address] | | | | | | [phone] | | | +--------+ + + + [...]
--- OUTSIDE RECORDS SUMMARY | ~2020-05-03 | XMS | Encounter Summary ---
Demographics + + + | Address | [address] | | | [place] [address] | + + + | Home Phone [...] | Organization | [facility] [...] Providers + +------+ + | Care Manager Land Name | Role | Phone | + +------+ + PCP | Unavailable | + +------+ + Encounter Details +--------+ + + + + | Date | Type | Department | Care Team | Description | +--------+ + + + + | 10/27/ | Hospital | [facility] | | | | 1990 | Encounter | MED CTR EMERGENCY | | | | | | CENTER [address] | | | | | | [place] | | | | | | [address] | | | | | | [phone] | | | +--------+ + + + [...]
--- OUTSIDE RECORDS SUMMARY | ~2020-05-03 | XMS | Encounter Summary ---
Demographics + + + | Address | [address] | | | [place] [address] | + + + | Home Phone [...] + + + | Author | [place] [employer] [facility] | + + + | Organization | [facility] [employer] Science [facility] [...] Team Providers + +------+ + | Care Advisor To Command In Combat Name | Role | Phone | + [...] | | [address] Mailcode:OP14B | [place], | | | | | [facility] | [place] [address] | | | | | [place], [place] | | | | | | [address] | | | | | | [phone] | | | +--------+ + + + [...]
--- OUTSIDE RECORDS SUMMARY | ~2020-05-03 | XMS | Encounter Summary ---
Demographics + + + | Address | [address] | | | [place] [address] | + + + | Home Phone [...] + + + | Author | [place] [employer] Science [facility] | + + + | Organization | [facility] [employer] Science [facility] | [...] Team Providers + +------+ + | Care Eligibility Counselor Name | Role | Phone | [...] | | | Ave Mailcode: CH8N | [place], [place] | | | | | [facility] | [address] | | | | | and Healing, | [phone] | | | | | [facility] | | | | | | Floor [place], [place] | | | | | | [address] | | | | | | [phone] | | | +--------+ + + + [...]
--- OUTSIDE RECORDS SUMMARY | ~2020-05-03 | XMS | Encounter Summary ---
Demographics + + + | Address | [address] | | | [place] [address] | + + + | Home Phone [...] | Organization | [facility] | [...] Team Providers + +------+ + | Care Hot Press Operator Name | Role | Phone | + +------+ + PCP | Unavailable | + +------+ + Encounter Details +--------+ + + + + | Date | Type | Department | Care Team | Description | +--------+ + + + + | 06/19/ | Hospital | [facility] | | | | 1991 | Encounter | MED CTR WOMENS | | | | | | HEALTH SV [address] | | | | | | [place], | | | | | | [place] [address] | | | | | | [phone] | | | +--------+ + + + [...]
--- OUTSIDE RECORDS SUMMARY | ~2020-05-03 | XMS | Encounter Summary ---
Demographics + + + | Address | [address] | | | [place] [address] | + + + | Home Phone [...] + + | Author | [place] [employer] [facility] | + + + | Organization | [facility] [employer] (Inspect Manager) Science [facility] [...] Providers + +------+ + | Care Food And Nutrition Services Supervisor Name | Role | Phone [...] Cerebri | | 2006 | Visit | [place] | | (Primary Dx) | | | | Neuro-Ophthalmology | | | | | | [address] [facility] | | | | | | Mailcode: CE | | | | | | [place] [address] | | | | | | [phone] | | | +--------+---------+ + + + [...] Referred by: CASIMIRO PAYTON MD [address] [place] [address] Symptoms: She has not been taking her [...] Brad Currie MD Neuro-Ophthalmology and Cerebrovascular Disease Gas Pumping Station Helper of Ophthalmology, Neurology, and Neurosurgery documented [...]
--- OUTSIDE RECORDS SUMMARY | ~2020-05-03 | XMS | Encounter Summary ---
Demographics + + + | Address | [address] | | | [place] [address] | + + + | Home Phone [...] + | Organization | [facility] [...] Team Providers + +------+ + | Care Pai Gow Manager Name | Role | Phone | + +------+ + PCP | Unavailable | + +------+ + Encounter Details +--------+ + + + + | Date | Type | Department | Care Team | Description | +--------+ + + + + | 05/15/ | Hospital | [facility] | | | | 1991 | Encounter | MED CTR XRAY [address] | | | | | | [address] | | | | | | [place] [address] | | | | | | [phone] | | | +--------+ + + + [...]
--- OUTSIDE RECORDS SUMMARY | ~2020-05-03 | XMS | Encounter Summary ---
Demographics + + + | Address | [address] | | | [place] [address] | + + + | Home Phone [...] [facility] | | [...] Providers + +------+ + | Care Metal Drilling Machine Operator Name | Role | Phone | + +------+ + PCP | Unavailable | + +------+ + Encounter Details +--------+ + + + + | Date | Type | Department | Care Team | Description | +--------+ + + + + | 07/14/ | Hospital | [facility] | | | | 1998 | Encounter | MED CTR EMERGENCY | | | | | | CENTER [address] | | | | | | [place] | | | | | | [address] | | | | | | [phone] | | | +--------+ + + + [...]
--- OUTSIDE RECORDS SUMMARY | ~2020-05-03 | XMS | Encounter Summary ---
Demographics + + + | Address | [address] | | | [place] [address] | + + + | Home Phone [...] + + + | Author | [place] [employer] Science [facility] | + + + | Organization | [facility] [employer] Science [facility] | + [...] Team Providers + +------+ + | Care Shotgun Shell Reprinting Unit Operator Name | Role | Phone | + +------+ + | Pedro Luis Sams MD | PCP | | + +------+ + Encounter Details +--------+ + + + + | Date | Type | Department | Care Team | Description | +--------+ + + + + | 10/19/ | Telephone | [facility] | Funmilayo Osorio MD | | | 2010 | | [place]/Ophthalmol | [address] | | | | | leon at [facility] [address] | [place], [place] | | | | | [address] Mailcode: | [address] | | | | | CH11P [facility] | [phone] | | | | | Health and Healing, | | | | | | [facility] | | | | | | [place], [place] | | | | | | [address] | | | | | | [phone] | | | +--------+ + + + [...]
--- OUTSIDE RECORDS SUMMARY | ~2020-05-03 | XMS | Encounter Summary ---
Demographics + + + | Address | [address] | | | [place] [address] | + + + | Home Phone [...] + + + | Author | [place] [employer] [facility] | + + + | Organization | [facility] [employer] Science [facility] | + [...] Team Providers + +------+ + | Care Design Engineering Manager Name | Role | Phone [...] [address] | | | | | | [place] | Ave | | | | | | [address] | [place], [place] | | | | | | [place], | [address] | | | | | | [place] [address] | Phone: | | | | | | Phone: | [phone] | | | | | | [phone] | Fax: | | | | | | Fax: | [phone] | | | | | | [phone] | | +--------+ + + + + [...] | | | Ave Mailcode: CH8N | [place], [place] | | | | | [facility] | [address] | | | | | and Healing, | [phone] | | | | | [facility] | | | | | | Floor [place], [place] | | | | | | [address] | | | | | | [phone] | | | +--------+---------+ + + + [...] soon. I spent more than 15 minutes [id number] with the patient of which greater than 50% was sp ent counseling the patient regarding the shunt removal, indications and venous sinus stent a ngioplasty. Since her shunt is brent effective now she will need narcotics for headache and he r PCP should manage that. CASIMIRO PAYTON MD NEUROSURGERY [address] Mailcode: Ch8n [facility], 8th [facility] [address] documented in this encou nter Plan of Treatment Not on filedocumented as of this encounter Visit Diagnoses + + | Diagnosis | + + | Pseudotumor cerebri - Primary Benign intracranial hypertension | + + documented in this encounter
--- OUTSIDE RECORDS SUMMARY | ~2020-05-03 | XMS | Encounter Summary ---
Demographics + + + | Address | [address] | | | [place] [address] | + + + | Home Phone [...] Author | [facility] | | | and [place] | + + + | Organization | [facility] | | [...] + +------+ + | Care Blood Bank Business Manager Name | Role | Phone | + +------+ + PCP | Unavailable | + +------+ + Encounter Details +--------+ + + + + | Date | Type | Department | Care Team | Description | +--------+ + + + + | 01/27/ | Hospital | [facility] | Marine Oden | | | 2011 - | Encounter | MED CTR EMERGENCY | DO [address] [place] | | | | | [address] | [place], [place] | | | 01/28/ | | [place], [place] | [address] | | | 2011 | | [address] | | | | | | [phone] | | | +--------+ + + + [...] Performed At | + + + | [facility] Diagnostic Imaging Department | [facility] | | [address] [facility] | [facility] | | UNENHANCED HEAD CT, 01/28/2012, | [...] COMMUNICATED TO THE ER STAFF BY THE [facility] ON | | | 01/29/2012 AT 0003 HOURS. Dictated Date/Time: 01/29/2012 09:41 | | | Transcribed Date/Time: 01/29/2012 09:47 Ramp Boss: | | | <Electronically Signed by Ivan Smalls MD> 01/29/12 1606 | | + + + + + | Procedure Note | + + | Neal, Rad Conversion - 01/04/2014 4:51 PM [facility] | | Diagnostic Imaging Department [address] [place] | | UNENHANCED HEAD CT, 01/28/2012, 2342 [...] 09:41 | |Transcribed Date/Time: 01/29/2012 09:47 | |Ramp Boss: | |<Electronically Signed by Ivan Smalls MD> [...]
--- OUTSIDE RECORDS SUMMARY | ~2020-05-03 | XMS | Encounter Summary ---
Demographics + + + | Address | [address] | | | [place] [address] | + + + | Home Phone [...] + + + | Author | [place] [employer] [facility] | + + + | Organization | [facility] In[facility] [employer] Science [facility] [...] Team Providers + +------+ + | Care Poultry Pathologist Name | Role | Phone | [...] [place] | | | | | | [facility] | | | | | | [place], [place] | | | | | | [address] | | | | | | [phone] | | | +--------+ + + + [...]
--- OUTSIDE RECORDS SUMMARY | ~2020-05-03 | XMS | Encounter Summary ---
Demographics + + + | Address | [address] | | | [place] [address] | + + + | Home Phone [...] + + + | Author | [place] [employer] [facility] | + + + | Organization | [facility] [employer] Science [facility] | + [...] + +------+ + | Care Sports Marketing Coordinator Name | Role | Phone [...] | | | Ave Mailcode: CH8N | [place], [place] | | | | | [facility] | [address] | | | | | and Healing, | [phone] | | | | | [facility] | | | | | | Floor [place], [place] | | | | | | [address] | | | | | | [phone] | | | +--------+ + + + [...]
--- OUTSIDE RECORDS SUMMARY | ~2020-05-03 | XMS | Encounter Summary ---
Demographics + + + | Address | [address] | | | [place] [address] | + + + | Home Phone [...] | Organization | [facility] | | | [...] Team Providers + +------+ + | Care Tailercpa Name | Role | Phone | + +------+ + PCP | Unavailable | + +------+ + Encounter Details +--------+ + + + + | Date | Type | Department | Care Team | Description | +--------+ + + + + | 09/03/ | Hospital | [facility] | | | | 1991 | Encounter | MED CTR WOMENS | | | | | | HEALTH SV [address] | | | | | | [place], | | | | | | [place] [address] | | | | | | [phone] | | | +--------+ + + + [...]
--- OUTSIDE RECORDS SUMMARY | ~2020-05-03 | XMS | Encounter Summary ---
Demographics + + + | Address | [address] | | | [place] [address] | + + + | Home Phone [...] | Organization | [facility] | [...] Team Providers + +------+ + | Care Last Inserter Name | Role | Phone | + +------+ + PCP | Unavailable | + +------+ + Encounter Details +--------+ + + + + | Date | Type | Department | Care Team | Description | +--------+ + + + + | 04/20/ | Hospital | [facility] | | | | 1995 | Encounter | MED CTR EMERGENCY | | | | | | CENTER [address] | | | | | | [place] | | | | | | [address] | | | | | | [phone] | | | +--------+ + + + [...]
--- OUTSIDE RECORDS SUMMARY | ~2020-05-03 | XMS | Encounter Summary ---
Demographics + + + | Address | [address] | | | [place] [address] | + + + | Home Phone [...] + | Organization | [facility] | | [...] Team Providers + +------+ + | Care Cartography Technician Name | Role | Phone | + +------+ + PCP | Unavailable | + +------+ + Encounter Details +--------+ + + + + | Date | Type | Department | Care Team | Description | +--------+ + + + + | 10/12/ | Hospital | [facility] | | | | 1991 | Encounter | MED CTR WOMENS | | | | | | HEALTH SV [address] | | | | | | [place], | | | | | | [place] [address] | | | | | | [phone] | | | +--------+ + + + [...]
--- OUTSIDE RECORDS SUMMARY | ~2020-05-03 | XMS | Encounter Summary ---
Demographics + + + | Address | [address] | | | [place] [address] | + + + | Home Phone [...] + + + | Author | [place] [employer] Science [facility] | + + + | Organization | [facility] [employer] Science [facility] [...] Team Providers + +------+ + | Care Penology Professor Name | Role | Phone | [...] Cerebri; | | 2006 | Visit | [place]/Ophthalmol | | Papilledema | | | | ogy at [facility] [address] | | Associated with | | | | [address] Mailcode: | | Increased | | | | CH11P Center for | | Intracranial | | | | Health and Healing, | | Pressure; Transient | | | | Building | | Visual Loss | | | | Floor [place], [place] | | | | | | [address] | | | | | | [phone] | | | +--------+---------+ + + + [...] HPI: 31 y.o. year old female from [place] : Patient presents with: Transient visual loss [...] seconds; these occur 2-3 x per w [place]. Hobbies: Tobacco use: reports that she has [...] patient to continue follow-up for psuedotumor w [facility] neuro-ophth. Follow up at [facility] prn new symptoms or complaints. WADE [...]
--- OUTSIDE RECORDS SUMMARY | ~2020-05-03 | XMS | Encounter Summary ---
Demographics + + + | Address | [address] | | | [place] [address] | + + + | Home Phone [...] | Organization | [facility] | | [...] Team Providers + +------+ + | Care Predatory Animal Hunter Name | Role | Phone | + +------+ + PCP | Unavailable | + +------+ + Encounter Details +--------+ + + + + | Date | Type | Department | Care Team | Description | +--------+ + + + + | 10/14/ | Hospital | [facility] | | | | 1991 | Encounter | MED CTR WOMENS | | | | | | HEALTH SV [address] | | | | | | [place], | | | | | | [place] [address] | | | | | | [phone] | | | +--------+ + + + [...]
--- OUTSIDE RECORDS SUMMARY | ~2020-05-03 | XMS | Encounter Summary ---
Demographics + + + | Address | [address] | | | [place] [address] | + + + | Home Phone [...] + + + | Author | [place] [employer] [facility] | + + + | Organization | [facility] [employer] Science [facility] | [...] Providers + +------+ + | Care Shoe Designer Name | Role | Phone | [...] | | | Ave Mailcode: CH8N | [place], [place] | | | | | [facility] | [address] | | | | | and Healing, | [phone] | | | | | | | | | | | Floor [place], [place] | | | | | | [address] | | | | | | [phone] | | | +--------+ + + + [...]
--- OUTSIDE RECORDS SUMMARY | ~2020-05-03 | XMS | Encounter Summary ---
Demographics + + + | Address | [address] | | | [place] [address] | + + + | Home Phone [...] | Organization | [facility] | | [...] Team Providers + +------+ + | Care Insulation Helper Name | Role | Phone | + +------+ + PCP | Unavailable | + +------+ + Encounter Details +--------+ + + + + | Date | Type | Department | Care Team | Description | +--------+ + + + + | 05/26/ | Hospital | [facility] | Alexa Bower DO | Infection of lumbar | | 2017 - | Encounter | [facility] [address] | [address] | spine (HCC); Type [address] | | | [address] | [place] [address] | diabetes mellitus | | 05/27/ | | [place], [place] | [phone] | without | | 2017 | | [address] | | complication, | | | | [phone] | | unspecified long | | | | | | term insulin use | | | | | | status ([facility]); | | | | | | History of drug | | | | | | abuse ([facility]); BMI | | | | | | 40.0-44.9, adult | | | | | | ([facility]); Back pain, | | | | | [...] 1542 Date of Service: 05/27/171842 Status: Signed Hospital Receptionist: Reynold Garcia MD (Physician) I was informed [...] 05/27/171849 Date of Service: 05/27/171842 Status: Signed Hospital Receptionist: Mesha Brown RN (Registered Nurse) Pt anxious, [...] Date of Service: 05/27/17 1303 Status: Signed Hospital Receptionist: Mesha Brown RN (Registered Nurse) Went to [...] Date of Service: 05/27/17 1045 Status: Signed Hospital Receptionist: Da Goode RN (Registered Nurse) 05/27/17 1042 [...] Oriented Prior functional status independant Power of Residential Real Estate Appraiser No Anticipated Discharge Plan Post Acute Care Needs None at this time Resources Financial concerns No Transportation issues No ( will transport) Patient/Family concerns No Prescription Plan Yes Name of Pharmacy [facility] [place] [facility] phone number [phone] Previous home health equipment No Vascular access device No Ostomy/Drains/Appliances No Anticipated Disposition Facility Type Home Met with patient at bedside. Annabella is a 41 year old female with a history of anxiety/depre sssion, HTN, COPD, DM type 2, and IV drug use. She lives in [place], [place] with her daughter 2 6, and 14 year old twins. Her is currently getting a new house ready for them to mov e into and is active in their lives. Annabella went to [facility] for pelvic pain and spotting but left AMA while waiting for MR I results because she couldn't smoke. The hospital called her and recommended her to go to [facility] based on the MRI results. Patient is independent in all ADL's. Because of the IV drug use, sending her home with an I V line is not recommended is she needs outpatient IV abx. 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; [employer] Coverage concerns:no Medication coverage/concerns: no Community resources utilized / needed: TBD Assistance in transportation: not at this time Identification of any specific education / training: TBD Barriers to Discharge / Alternative housing needed: not at this time Anticipated DCP: Home DA GOODE RN Case Management [phone] orens peyman, Andre Marmolejo MD - 05/27/2017 9:46 AM PDT Progress Notes by Andre Alonso MD-R1 at 05/27/17 0946 Author: [email or web address] Service: Hospitalist Author Type: Resident-Y1 Filed: 05/27/171900 Date of Service: 05/27/17945 Status: Attested Hospital Receptionist: JIMENA [email or web address] (Resident-Y1) Cosigner: Reynold Garcia MD [...] hospitalization due to abuse p otential and long-term side effects. I anticipate that pt may not be happy during this hospi yuridia stay for this reason. I recommend risk management to see pt proactively. IVDU; heroin H/o SYNTHETIC SOIL BLOCKS PULPER shunt. [facility] Service: Hospitalist Progress Note Hospital Day: LOS: 0 days Post-Op Day: * No surgery found * SUBJECTIVE Patient Summary: the patient is a 41-year-old female with significant past medical h istory of type II diabetes, hypertension, gastroesophageal reflux disease, depression, IV dr hawa goldsmith who is a transfer from [facility] for further evaluation. Events Overnight: [...] IV drug abuse who was transferred from [facility] in [place], [place] for further evaluation of suspicious lumbar [...] 05/27/17635 Date of Service: 05/27/17633 Status: Signed Hospital Receptionist: Cathy Garcia RN (Registered Nurse) Contacted [facility]. Will fax over current microbiology GC test along with most current wound culture results. onver ludwin Transaction, Provider Unknown - 05/27/2017 5:15 AM PDT Progress Notes by Remy Trinidad RPH at 05/27/17514 Author: Remy Trinidad RPH Service: Pharmacy Author Type: Pharmacist Filed: 05/27/17514 Date of Service: 05/27/17514 Status: Signed Hospital Receptionist: Remy Trinidad RPH (Pharmacist) Note ccl 125.9ml/min [...] NEGATIVE Testing | | | performed at [facility];[address] [place] [address];[place] [address] | | + + + + +---------+ [...] | | | Fingerstick | performed at [facility];[address] | | LAB | | | | [address]da Hammer;[place] | | | | | | [address] | | | | + + + [...] | | | Fingerstick | performed at [facility];[address] | | LAB | | | | [address]da [address];[place], [place] | | | | | | [address] | | | | + + + [...] - 1.030 | EXTERNAL | | | [place], | | | LAB | | | [...] | | l squamous | performed at [facility], [address] | | LAB | | | epithelia, | Teresa [address], | | | | | UA | [place] [address] | | | | + + + [...] | | | Patient | performed at [facility];[address] | | LAB | | | | [address];[place], [place] | | | | | | [address] | | | | + + + [...] | | | | | performed at [facility] | | | | | | Nereyda Clark;[place], [place] | | | | | | [address] | | | | + + + [...] | | | Basophils | performed at [facility], [address] | K/uL | LAB | | | | [place], | | | | | | [place] [address] | | | | + + + [...] EXTERNAL | | | | performed at [facility], [address] | | LAB | | | | [address], | | | | | | [place] [address] | | | | + + + [...] | | | | | [place] [address] | | | | + + + [...] + + | Hemoglobin | 5.7Comment: [place] | 4.0 - 6.0 % | EXTERNAL [...] | | | | | performed at [facility], [address] | | | | | | [facility], | | | | | | [place] [address] | | | | + + + [...] | | | | | | at [facility], [address] | | | | | | [facility], | | | | | | [place] [address] | | | | + + + [...] | | | Fingerstick | performed at [facility];[address] | | LAB | | | | Nereyda Hammer;[place], [place] | | | | | | [address] | | | | + + + [...] | | | | | performed at [facility];[address] | | | | | | [facility];[place], [place] | | | | | | [address] | | | | + + + [...] EXTERNAL | | | | performed at [facility];888 | mmol/L | LAB | | | | Dawn [facility];[place], [place] | | | | | | [address] | | | | + + + [...] at | | | | | | [facility];[address] [place] [address] | | | | | | [facility];[place] [address] | | | | + + + [...] EXTERNAL | | | | performed at [facility];[address] | | LAB | | | | Nereyda Hammer;[place] | | | | | | [address] | | | | + + + [...] EXTERNAL | | | | performed at [facility];[address] | | LAB | | | | Nereyda Hammer;[place], [place] | | | | | | [address] | | | | + + + [...] | | | QUALITATIVE | performed at [facility];[address] | | LAB | | | | Nereyda Hammer;[place] | | | | | | [address] | | | | + + + [...] - 1.030 | EXTERNAL | | | [place], | | | LAB | | | [...] | | | Cells | performed at [facility];888 | | LAB | | | | Nereyda Hammer;[place], [place] | | | | | | [address] | | | | + + + [...] Type 2 diabetes mellitus without complication, unspecified exterminator helper insulin use | | status | + [...]
--- OUTSIDE RECORDS SUMMARY | ~2020-05-03 | XMS | Encounter Summary ---
Demographics + + + | Address | [address] | | | [place] [address] | + + + | Home Phone [...] + + + | Author | [place] [employer] [facility] | + + + | Organization | [facility] [employer] [facility] | + + [...] Providers + +------+ + | Care Payroll Master Name | Role | Phone | [...] | | Ave Mailcode: CH8N | [place], [place] | | | | | [facility] | [address] | | | | | and Healing, | [phone] | | | | | [facility] | | | | | | Floor [facility] [place] | | | | | | [address] | | | | | | [phone] | | | +--------+---------+ + + + [...]
--- OUTSIDE RECORDS SUMMARY | ~2020-05-03 | XMS | Encounter Summary ---
Demographics + + + | Address | [address] | | | [place] [address] | + + + | Home Phone [...] | Organization | [facility] | [...] Team Providers + +------+ + | Care Housing Coordinator Name | Role | Phone | + +------+ + PCP | Unavailable | + +------+ + Encounter Details +--------+ + + + + | Date | Type | Department | Care Team | Description | +--------+ + + + + | 07/24/ | Hospital | [facility] | | | | 1990 | Encounter | MED CTR EMERGENCY | | | | | | CENTER [address] | | | | | | [place] | | | | | | [address] | | | | | | [phone] | | | +--------+ + + + [...]
--- OUTSIDE RECORDS SUMMARY | ~2020-05-03 | XMS | Encounter Summary ---
Demographics + + + | Address | [address] | | | [place] [address] | + + + | Home Phone [...] | [facility] | | [...] Team Providers + +------+ + | Care Checkering Machine Operator Name | Role | Phone | + +------+ + PCP | Unavailable | + +------+ + Encounter Details +--------+ + + + + | Date | Type | Department | Care Team | Description | +--------+ + + + + | 10/22/ | Hospital | [facility] | | | | 1991 - | Encounter | [facility] | | | | | | [facility]ALTH [facility] [address] | | | | 10/24/ | | [place], | | | | 1991 | | [place] [address] | | | | | | [phone] | | | +--------+ + + + [...]
--- OUTSIDE RECORDS SUMMARY | ~2020-05-03 | XMS | Encounter Summary ---
Demographics + + + | Address | [address] | | | [place] [address] | + + + | Home Phone [...] | Organization | [facility] [...] Providers + +------+ + | Care Automatic Print Developer Name | Role | Phone | + +------+ + PCP | Unavailable | + +------+ + Encounter Details +--------+ + + + + | Date | Type | Department | Care Team | Description | +--------+ + + + + | 10/29/ | Hospital | [facility] | | | | 1991 | Encounter | MED CTR EMERGENCY | | | | | | CENTER [address] | | | | | | [place] | | | | | | [address] | | | | | | [phone] | | | +--------+ + + + [...]
--- OUTSIDE RECORDS SUMMARY | ~2020-05-03 | XMS | Encounter Summary ---
Demographics + + + | Address | [address] | | | [place] [address] | + + + | Home Phone [...] + + + | Author | [place] [employer] [facility] | + + + | Organization | [facility] [employer] [facility] [...] Team Providers + +------+ + | Care Entry Level Drafter Name | Role | Phone | [...] Cerebri; | | 2006 | Visit | [place]/Ophthalmol | | Pap[place] | | | | ogy at [facility] [address] | | Associated with | | | | [address] Mailcode: | | Increased | | | | CH11[facility] | | Intracranial | | | | Health and Healing, | | Pressure; Transient | | | | Building | | Visual Loss | | | | Floor [place], [place] | | | | | | [address] | | | | | | [phone] | | | +--------+---------+ + + + [...] HPI: 31 y.o. year old female from [place] : Patient presents with: Transient visual loss [...] seconds; these occur 2-3 x per w qawalangin. Hobbies: Tobacco use: reports that she has [...] patient to continue follow-up for [facility] neuro[facility]. Follow up at [facility] prn new symptoms or complaints. WADE Jensen [...]
--- OUTSIDE RECORDS SUMMARY | ~2020-05-03 | XMS | Encounter Summary ---
Demographics + + + | Address | [address] | | | [place] [address] | + + + | Home Phone [...] + | Organization | [facility] | | [...] Team Providers + +------+ + | Care Management Engineer Name | Role | Phone | [...] | | | [address] [place] | [address] | | | | | [address] | [phone] | | | | | [phone] | | | +--------+ + + + [...]
--- OUTSIDE RECORDS SUMMARY | ~2020-05-03 | XMS | Encounter Summary ---
Demographics + + + | Address | [address] | | | [place] [address] | + + + | Home Phone [...] + + + | Author | [place] [employer] [facility] | + + + | Organization | [facility] [employer] [facility] | + [...] Providers + +------+ + | Care Gas Maker Helper Name | Role | Phone | [...] | | | Ave Mailcode: CH8N | [place], [place] | | | | | [facility] | [address] | | | | | and Healing, | [phone] | | | | | [facility] | | | | | | Floor [place], [place] | | | | | | [address] | | | | | | [phone] | | | +--------+ + + + [...]
--- OUTSIDE RECORDS SUMMARY | ~2020-05-03 | XMS | Encounter Summary ---
Demographics + + + | Address | [address] | | | [place] [address] | + + + | Home Phone [...] + + + | Author | [place] [employer] [facility] | + + + | Organization | [facility] [employer] [facility] [...] | | | | | | Floor [place], [place] | | | | | | [address] | | | | | | [phone] | | | +--------+ + + + [...]
--- OUTSIDE RECORDS SUMMARY | ~2020-05-03 | XMS | Encounter Summary ---
Demographics + + + | Address | [address] | | | [place] [address] | + + + | Home Phone [...] + + + | Author | [place] [employer] [facility] | + + + | Organization | [facility] [employer] [facility] | + [...] Providers + +------+ + | Care Electrical Maintenance Man Name | Role | Phone | [...] | | and Healing [address] | [place], [place] | | | | | [address] Mailcode: | [address] | | | | | CH[facility] | [phone] | | | | | Health and Healing, | | | | | | [facility] | | | | | | Floor [facility] [place] | | | | | | [address] | | | | | | [phone] | | | +--------+ + + + [...]
--- OUTSIDE RECORDS SUMMARY | ~2020-05-03 | XMS | Encounter Summary ---
Demographics + + + | Address | [address] | | | [place] [address] | + + + | Home Phone [...] + + + | Author | [place] [employer] [facility] | + + + | Organization | [facility] [employer] [facility] [...] Providers + +------+ + | Care Clay Dry Press Mixer Operator Name | Role | Phone | [...] | | | [facility] | [place], [place] | | | | | Health and Healing, | [address] | | | | | Building | | | | | | Floor [place], [place] | | | | | | [address] | | | | | | [phone] | | | +--------+--------+ + + + [...]
--- OUTSIDE RECORDS SUMMARY | ~2020-05-03 | XMS | Encounter Summary ---
Demographics + + + | Address | [address] | | | [place] [address] | + + + | Home Phone [...] + + + | Author | [place] [employer] [facility] | + + + | Organization | [facility] [employer] [facility] [...] Team Providers + +------+ + | Care Commissioning Editor Name | Role | Phone | [...] | | | Ave Mailcode: CH8N | [place], [place] | | | | | [facility] | [address] | | | | | and Healing, | [phone] | | | | | [facility] | | | | | | Floor [place], [place] | | | | | | [address] | | | | | | [phone] | | | +--------+ + + + [...]
--- OUTSIDE RECORDS SUMMARY | ~2020-05-03 | XMS | Encounter Summary ---
Demographics + + + | Address | [address] | | | [place] [address] | + + + | Home Phone [...] Providers + +------+ + | Care Application Support Engineer Name | Role | Phone | + +------+ + PCP | Unavailable | + +------+ + Encounter Details +--------+ + + + + | Date | Type | Department | Care Team | Description | +--------+ + + + + | 05/18/ | Hospital | [facility] | | | | 1991 | Encounter | [facility] | | | | | | HEALTH [address] | | | | | | [place], | | | | | | [place] [address] | | | | | | [phone] | | | +--------+ + + + [...]
--- OUTSIDE RECORDS SUMMARY | ~2020-05-03 | XMS | Encounter Summary ---
Demographics + + + | Address | [address] | | | [place] [address] | + + + | Home Phone [...] + + | Author | [place] [employer] [facility] | + + + | Organization | [facility] [employer] [facility] | [...] Providers + +------+ + | Care Director Veterinary Name | Role | Phone | + [...] Cerebri | | 2006 | Visit | Martha | | (Primary Dx) | | | | Neuro-Ophthalmology | | | | | | [address] [facility] | | | | | | Mailcode: CE | | | | | | [place] [address] | | | | | | [phone] | | | +--------+---------+ + + + [...] Referred by: CASIMIRO PAYTON MD [address] [place] [address] Symptoms: She has not been taking her [...] Brad Currie MD Neuro-Ophthalmology and Cerebrovascular Disease Hazardous Substances Scientist of Ophthalmology, Neurology, and Neurosurgery documented in this encounter Plan of Treatment + + +--------+ + + | Name | Type | Priori | Associated Diagnoses | Order Schedule | | | | ty | | | + + +--------+ + + | [place] VISUAL FIELD | Procedures | Routin | Pseudotumor | Ordered: 12/19/2006 | | EXAM,EXTENDED | | e | Cerebri | | + + +--------+ + + documented as of this encounter Visit Diagnoses + + | Diagnosis | + + | Pseudotumor cerebri - Primary Benign intracranial hypertension | + + documented in this encounter"
--- OUTSIDE RECORDS SUMMARY | ~2020-05-03 | XMS | Encounter Summary ---
Demographics + + + | Address | [address] | | | [place] [address] | + + + | Home Phone [...] + | Organization | [facility] [...] Team Providers + +------+ + | Care Biomechanical Engineer Name | Role | Phone | + +------+ + PCP | Unavailable | + +------+ + Encounter Details +--------+ + + + + | Date | Type | Department | Care Team | Description | +--------+ + + + + | 10/27/ | Hospital | [facility] | | | | 1990 | Encounter | MED CTR EMERGENCY | | | | | | CENTER [address] | | | | | | [place] | | | | | | [address] | | | | | | [phone] | | | +--------+ + + + [...]
--- OUTSIDE RECORDS SUMMARY | ~2020-05-03 | XMS | Encounter Summary ---
Demographics + + + | Address | [address] | | | [place] [address] | + + + | Home Phone [...] + + | Author | [place] [employer] [facility] | + + + | Organization | [facility] [employer] [facility] | + [...] Team Providers + +------+ + | Care Woodworking Machinist Name | Role | Phone | + [...] Cerebri | | 2006 | Visit | [place] | [address] | (Primary Dx) | | | | Oculoplastics at | [place], [place] | | | | | [address] | [address] | | | | | [address] | [phone] | | | | | [facility] [place] | | | | | | [facility], [address] [place] [address] | | | | | | [place] [address] | | | | | | [phone] | | | +--------+---------+ + + + [...]
--- OUTSIDE RECORDS SUMMARY | ~2020-05-03 | XMS | Encounter Summary ---
Demographics + + + | Address | [address] | | | [place] [address] | + + + | Home Phone [...] + + + | Author | [place] [employer] [facility] | + + + | Organization | [facility] [employer] [facility] | + [...] Team Providers + +------+ + | Care Acid Painter Name | Role | Phone | [...] Refill Request | | 2006 | | [place] | [address] | | | | | Oculoplastics at | Rd [place], [place] | | | | | [facility] [address] | [address] | | | | | [address] | | | | | | Eye [place] | | | | | | [facility] [address], [address] [place] [address] | | | | | | [place] [address] | | | | | | [phone] | | | +--------+ + + + [...]
--- OUTSIDE RECORDS SUMMARY | ~2020-05-03 | XMS | Encounter Summary ---
Demographics + + + | Address | [address] | | | [place] [address] | + + + | Home Phone [...] | Organization | [facility] | [...] Providers + +------+ + | Care Industrial Therapist Name | Role | Phone | + +------+ + PCP | Unavailable | + +------+ + Encounter Details +--------+ + + + + | Date | Type | Department | Care Team | Description | +--------+ + + + + | 10/02/ | Hospital | [facility] | | | | 1991 | Encounter | MED [facility] | | | | | | HEALTH [address] | | | | | | [place], | | | | | | [place] [address] | | | | | | [phone] | | | +--------+ + + + [...]
--- OUTSIDE RECORDS SUMMARY | ~2020-05-03 | XMS | Encounter Summary ---
Demographics + + + | Address | [address] | | | [place] [address] | + + + | Home Phone [...] + + + | Author | [place] [employer] [facility] | + + + | Organization | [facility] [employer] [facility] | + [...] Team Providers + +------+ + | Care Assembling Machine Operator Name | Role | Phone [...] CH8N | | | | | | [facility] | | | | | | and Healing, | | | | | | Building [address] | | | | | | Floor [place], [place] | | | | | | [address] | | | | | | [phone] | | | +--------+ + + + [...]
--- OUTSIDE RECORDS SUMMARY | ~2020-05-03 | XMS | Encounter Summary ---
Demographics + + + | Address | [address] | | | [place] [address] | + + + | Home Phone [...] | Organization | [facility] | | [...] Team Providers + +------+ + | Care Fitter Hand Name | Role | Phone | + +------+ + PCP | Unavailable | + +------+ + Encounter Details +--------+ + + + + | Date | Type | Department | Care Team | Description | +--------+ + + + + | 01/27/ | Hospital | [facility] | Marine Oden | | | 2011 - | Encounter | MED CTR EMERGENCY | DO Gaurang Drake | | | | | [address] | [place], [place] | | | 01/28/ | | [place], [place] | [address] | | | 2011 | | [address] | | | | | | [phone] | | | +--------+ + + + [...] At | + + + | [facility] Diagnostic Imaging Department | [facility] | | [address] [facility] | [facility] | | UNENHANCED HEAD CT, [...] COMMUNICATED TO THE ER STAFF BY [facility] ON | | | 01/29/2012 AT 0003 HOURS. Dictated Date/Time: 01/29/2012 09:41 | | | Transcribed Date/Time: 01/29/2012 09:47 Siding Applicator: | | | <Electronically Signed by Ivan Smalls MD> 01/29/12 1606 | | + + + + + | Procedure Note | + + | Neal, Rad Conversion - 01/04/2014 4:51 PM [facility] | | Diagnostic Imaging Department [address] [place] | | UNENHANCED HEAD CT, 01/28/2012, 2342 [...] 09:41 | |Transcribed Date/Time: 01/29/2012 09:47 | |Siding Applicator: | |<Electronically Signed by Ivan Smalls MD> [...]
--- OUTSIDE RECORDS SUMMARY | ~2020-05-03 | XMS | Encounter Summary ---
Demographics + + + | Address | [address] | | | [place] [address] | + + + | Home Phone [...] + + | Author | [place] [employer] [facility] | + + + | Organization | [facility] [employer] [facility] | + + [...] Providers + +------+ + | Care Fish Grader Name | Role | Phone | [...] | | Haider Mailcode:[id number] | Sandra Maloney Mcque[place], | | | | | [facility] | [place] [address] | | | | | [place], [place] | | | | | | [address] | | | | | | [phone] | | | +--------+ + + + [...]
--- OUTSIDE RECORDS SUMMARY | ~2020-05-03 | XMS | Encounter Summary ---
Demographics + + + | Address | [address] | | | [place] [address] | + + + | Home Phone [...] + + + | Author | [place] [employer] [facility] | + + + | Organization | [facility] [employer] [facility] | + [...] Team Providers + +------+ + | Care Foundry Operator Name | Role | Phone | + +------+ + | Dennis Maddox | PCP | | + +------+ + Encounter Details +--------+ + + + + | Date | Type | Department | Care Team | Description | +--------+ + + + + | 03/15/ | Telephone | [facility] | Ronaldo Martin MD | | | 2012 | | [place]/Ophthalmol | [email or web address] Eye Bent | | | | | leon at [facility] [address] | [address] [place] [address] | | | | | Gianluca Kirk Mailcode: | [place] [address] | | | | | CH11[facility] | [phone] | | | | | Health and Healing, | | | | | | | | | | | | [place], [place] | | | | | | [address] | | | | | | [phone] | | | +--------+ + + + [...]
--- OUTSIDE RECORDS SUMMARY | ~2020-05-03 | XMS | Encounter Summary ---
Demographics + + + | Address | [address] | | | [place] [address] | + + + | Home Phone [...] + + + | Author | [place] [employer] [facility] | + + + | Organization | [facility] | + + + | Address | Unknown | + + + | Phone | Unavailable | + + + Support + + +---------+ + | Name | Relationship | Address | Phone | + + +---------+ + | Ruby uA | ECON | Unknown | | + + +---------+ + Care Team Providers + +------+ + | Care Investigations Consultant Name | Role | Phone | [...] | | | | [address] | [facility], | | | | | | [place], [place] | 10th Floor | | | | | | [address] | [place], [place] | | | | | | Phone: | [phone] | | | | | | [phone] | Phone: | | | | | | Fax: | [phone] | | | | | | [phone] | Fax: | | | | | | | [phone] | +--------+--------+ + + + + Reason [...] Sky Maloney | | | | | [facility] | [place], [place] | | | | | [place], [place] | [address] | | | | | [address] | [phone] | | | | | [phone] | | | | | | | [...] the irma aviva. Thanks for coming to [facility] today. Your head CT was negative for any new findings. The neurosurgeon did not think there was a malfunction in your shunt. The marketing production specialist recommends you taking Diomox again and follow up in 1 week at [facility]. Please follow up with your doctor. Rest, [...] + + + | [facility] | [address] | [place], [place] | | | ZACHARIAH GRIFFITH OF [facility] | [address] | [address] | | | TESTS | | | [...] + + + + + | [facility] | [address] | [place] [address] | | | SERVICES, CORE | SKY [...] | | | | | CHRISTIANO TORRES ([id number]) | | | | | | on 03/14/2013 10:35:55 AM | | | | + + + + + + + + | Specimen | + + | | + + + + + | Narrative | Performed At | + + + | Please click | [facility]PT [facility] | | on view image for the detailed interpretation from [employer] results. | CARDIOLOGY | + + + + + + + + | Performing | Address | City/State/Zipcode | Phone Number | | Organization | | | | + + + + + | [facility] | [address] | [place], [place] | | | CARDIOLOGY | [address] | [address] | | + + + + + [...] [facility] | [address] | [place], [place] | | | ZACHARIAH GRIFFITH OF CARE | [facility] | [address] | | | TESTS | | | [...] [facility] | [address] | [place] [address] | | | SERVICES, CORE | PARK [...] | + + + + + | [facility] | [address] [facility] [facility] | [place] [address] | | | SERVICES, CORE | SKY [...] | | | LABORATORY | | | CHADIAN | | | SERVICES, | | | [...] [facility] | [address] | [place] [address] | | | SERVICES, CORE | PARK [...] | + + + + + | [facility] | [address] | [place] [address] | | | SERVICES, CORE | SKY [...] + | [place] - [facility] - | [address] [place] [address] | [place] [address] | | | [place] | | | | + + + + + RAINBOW HOLD TUBE - RED TOP (03/13/2013 11:52 AM PDT) + + | Specimen | + + | Blood - Blood | + + + + + + + | Performing | Address | City/State/Zipcode | Phone Number | | Organization | | | | + + + + + | [facility] | [address] | [place] [address] | | | SERVICES, CORE | SKY [...]
--- OUTSIDE RECORDS SUMMARY | ~2020-05-03 | XMS | Encounter Summary ---
Demographics + + + | Address | [address] | | | [place] [address] | + + + | Home Phone [...] | Organization | [facility] | [...] Providers + +------+ + | Care Grape Crusher Name | Role | Phone | + +------+ + PCP | Unavailable | + +------+ + Encounter Details +--------+ + + + + | Date | Type | Department | Care Team | Description | +--------+ + + + + | 08/21/ | Hospital | [facility] | | | | 1991 | Encounter | [facility] EM[facility] | | | | | | CENTER [address] | | | | | | [place] | | | | | | [address] | | | | | | [phone] | | | +--------+ + + + [...]
--- OUTSIDE RECORDS SUMMARY | ~2020-05-03 | XMS | Encounter Summary ---
Demographics + + + | Address | [address] | | | [place] [address] | + + + | Home Phone [...] | Organization | [facility] [...] Providers + +------+ + | Care Business Services Vice President Name | Role | Phone [...] left hand | [address] | | | | n | Weakness of | [address] | [place], | | | | | both hands | [place], | [place] [address] | | | | | [place] left | [place] [address] | Phone: | | | | | wrist Pain | Phone: | [phone] | | | | | of right | [phone] | Fax: | | | | | thumb | Fax: | [phone] | | | | | Trigger | [phone] | | | | | | finger of | | | | | | | right thumb | | | | | | | Procedures | | | | | | | MD MOTOR | | | | | | | &/SENS > | | | | | | | NRV CNDJ | | | | | | | PRECONF | | | | | | | ELTRODE LIMB | | | | | | | MD NEEDLE | | | | | | [...] | | | | | Trigger | [address] | [place] | | | | | finger of | [place], | [place] | | | | | right thumb | [place] [address] | [address] | | | | | | Phone: | Phone: | | | | | | [phone] | [phone] | | | | | | Fax: | Fax: | | | | | | [phone] | [phone] | +--------+ + + + + + [...] | | Rehabilitatio | tunnel | PA-C [address] | [address] | | | | n | syndrome on | | [place], | | | | | left | [place] | [place] [address] | | | | | | WAY | Phone: | | | | | | [place], | [phone] | | | | | | [place] [address] | Fax: | | | | | | Phone: | [phone] | | | | | | [phone] | | | | | | | Fax: | | | | | | | [phone] | | +--------+--------+ + + + + Encounter Details +--------+---------+ + + + | Date | Type | Department | Care Team | Description | +--------+---------+ + + + | 01/03/ | Office | [facility] [place] | Amanuel Jennings, | Numbness of left | | 2019 | Visit | PHYSIATRY [address] | MD [address] | hand (Primary Dx); | | | | [address] | [place] | Weakness of both | | | | [place] | [address] | hands; [place] of left | | | | [address] | | wrist; Pain of right | | | | [phone] | | thumb; Trigger | | | [...] encounter Patient Instructions Patient Instructions Adelaide Santa, Senior Counsel - 01/03/2019 1:00 PM Rina chowdhury o [...] Acute low back pain Antisocial personality disorder ([facility]) Anxiety disorder Asthma Benign essential hypertension Chronic back pain Chronic obstructive lung disease (HCC) Chronic posttraumatic stress disorder Depressive disorder Diabetes mellitus type 2 in obese ([facility]) Gastroesophageal reflux disease Heroin dependence ([facility]) Hoarse Hypertensive disorder Insomnia with sleep apnea IV drug abuse ([facility]) Low back strain Numbness of left hand Obstructive sleep apnea of adult Opioid dependence on agonist therapy ([facility]) Other chronic pain Panic disorder without agoraphobia with severe panic attacks Polysubstance dependence ([facility]) Sedative, hypnotic or anxiolytic dependence, in remission ([facility]) Tobacco user Trigger finger of right hand [...] wrist dorsiflexion , finger abduction, and right loan collector. 4/5 hand loan collector on the left Reflexes: 2+ normal and [...] scribed by in my presence, Adelaide Santa, Senior Counsel and are both accurate and comp lete. [...]
--- OUTSIDE RECORDS SUMMARY | ~2020-05-03 | XMS | Encounter Summary ---
Demographics + + + | Address | [address] | | | [place] [address] | + + + | Home Phone [...] + + + | Author | [place] [employer] [facility] | + + + | Organization | [facility] [employer] [facility] | [...] Team Providers + +------+ + | Care Vacuum Evaporation Operator Name | Role | Phone | [...] Letter From | | 2007 | | [facility] | [address] | Specialist | | | | and Healing [address] | [place], [place] | | | | | [address] Mailcode: | [address] | | | | | [facility] | [phone] | | | | | Health and Healing, | | | | | | [facility] | | | | | | Floor [facility] [place] | | | | | | [address] | | | | | | [phone] | | | +--------+ + + + [...]
--- OUTSIDE RECORDS SUMMARY | ~2020-05-03 | XMS | Encounter Summary ---
Demographics + + + | Address | [address] | | | [place] [address] | + + + | Home Phone [...] | [facility] | | [...] Providers + +------+ + | Care Manager Wholesale Name | Role | Phone | + +------+ + PCP | Unavailable | + +------+ + Encounter Details +--------+ + + + + | Date | Type | Department | Care Team | Description | +--------+ + + + + | 10/10/ | Hospital | [facility] | | | | 1991 | Encounter | [facility] | | | | | | HEALTH [facility] [address] | | | | | | [place], | | | | | | [place] [address] | | | | | | [phone] | | | +--------+ + + + [...]
--- OUTSIDE RECORDS SUMMARY | ~2020-05-03 | XMS | Encounter Summary ---
Demographics + + + | Address | [address] | | | [place] [address] | + + + | Home Phone [...] + | Organization | [facility] [...] Providers + +------+ + | Care Data Librarian Name | Role | Phone | + +------+ + PCP | Unavailable | + +------+ + Encounter Details +--------+ + + + + | Date | Type | Department | Care Team | Description | +--------+ + + + + | 09/30/ | Hospital | [facility] | | | | 1991 | Encounter | [facility] | | | | | | HEALTH SV [address] | | | | | | [place], | | | | | | [place] [address] | | | | | | [phone] | | | +--------+ + + + [...]
--- OUTSIDE RECORDS SUMMARY | ~2020-05-03 | XMS | Encounter Summary ---
Demographics + + + | Address | [address] | | | [place] [address] | + + + | Home Phone [...] + + + | Author | [place] [employer] [facility] | + + + | Organization | [facility] [employer] [facility] [...] Team Providers + +------+ + | Care Vending Machine Coin Collector Name | Role | Phone | [...] | | | [place] Mailcode: [id number] | [place], [place] | | | | | [place], [place] | [address] | | | | | [address] | [phone] | | | | | [phone] | | | +--------+ + + + [...]
--- OUTSIDE RECORDS SUMMARY | ~2020-05-03 | XMS | Encounter Summary ---
Demographics + + + | Address | [address] | | | [place] [address] | + + + | Home Phone [...] + + + | Author | [place] [employer] [facility] | + + + | Organization | [facility] [employer] [facility] | + [...] Providers + +------+ + | Care Sales Secretary Name | Role | Phone | [...] | | | | | | | [facility] | | | | | | | Hospital | | | | | | | [place], [place] | | | | | | | [address] | | | | | | | Phone: | | | | | | | [phone] | | | | | | | Fax: | | | | | | | [phone] | +--------+--------+ + + + + Encounter Details +--------+ + + + + | Date | Type | Department | Care Team | Description | +--------+ + + + + | 05/07/ | Hospital | [facility] [address] | [place], | | | 2007 | Encounter | [address] | MD [place] | | | | | [facility] [facility] | MD Holden,PhD | | | | | [place] | | | | | | [address] | | | | | | [phone] | | | +--------+ + + + [...] [place], | | | | | | M.D.Manager Php surgeon: . | | | | | [...] | | | | | cervical region, [place] and | | | | | | [...] | | | | | | vein with6-[employer] | | | | | | [...] artery. | | | | | | Q3Pdamwb Berenstein | | | | | | [...] | | | | | with a 6-[employer] | | | | | | [...]
--- OUTSIDE RECORDS SUMMARY | ~2020-05-03 | XMS | Encounter Summary ---
Demographics + + + | Address | [address] | | | [place] [address] | + + + | Home Phone [...] | Organization | [facility] | | [...] Team Providers + +------+ + | Care Grubber Name | Role | Phone | + +------+ + PCP | Unavailable | + +------+ + Encounter Details +--------+ + + + + | Date | Type | Department | Care Team | Description | +--------+ + + + + | 10/20/ | Hospital | [facility] | | | | 1999 | Encounter | MED CTR EM[facility]Y | | | | | | CENTER [address] | | | | | | [place] | | | | | | [address] | | | | | | [phone] | | | +--------+ + + + [...]
--- OUTSIDE RECORDS SUMMARY | ~2020-05-03 | XMS | Encounter Summary ---
Demographics + + + | Address | [address] | | | [place] [address] | + + + | Home Phone [...] | Organization | [facility] [...] + + | 09/07/ | Hospital | [facility] | | | | 1991 | Encounter | MED CTR EMER[facility]ENCY | | | | | | CENTER [address] | | | | | | [place] | | | | | | [address] | | | | | | [phone] | | | +--------+ + + + [...]
--- OUTSIDE RECORDS SUMMARY | ~2020-05-03 | XMS | Clinical Summary ---
Demographics + + + | Address | [address] | | | [place] [address] | + + + | Home Phone [...] + | Organization | [facility] | [...] Team Providers + +------+ + | Care Brown Stock Washer Name | Role | Phone | [...] +---------+--------+ | [place] | MEDICA | [id number] | 11/09/ | [phone] | | Medica | | | ID [place] | | 2018-P | 2 | | id | | | PLUS | | resent | | | | + +--------+ +--------+ +---------+--------+ | [facility] | IHS | [id number] | 11/08/ | | | Indemn | [...] | 1975 | [phone] | [place] [address] | | | rene | | | 5 (Home) | | + +--------+ +--------+ + + Advance Directives + + + + + | Type | Date Recorded | Patient | Explanation | | | | Chemistry Faculty Member | | + + + + + | Power of | | | | | Motor Inspection Mechanic | | | | + + + + + | Advance | | | | | Directive | | | | + + + + +
--- OUTSIDE RECORDS SUMMARY | ~2020-05-03 | XMS | Encounter Summary ---
Demographics + + + | Address | [address] | | | [place] [address] | + + + | Home Phone [...] Organization | [facility] | | | [...] Team Providers + +------+ + | Care Conveyor Belt Installer Name | Role | Phone | + +------+ + PCP | Unavailable | + +------+ + Encounter Details +--------+ + + + + | Date | Type | Department | Care Team | Description | +--------+ + + + + | 05/18/ | Hospital | [facility] | | | | 1991 | Encounter | [facility] | | | | | | HEALTH [facility] [address] | | | | | | [place], | | | | | | [place] [address] | | | | | | [phone] | | | +--------+ + + + [...]
--- OUTSIDE RECORDS SUMMARY | ~2020-05-03 | XMS | Encounter Summary ---
Demographics + + + | Address | [address] | | | [place] [address] | + + + | Home Phone [...] + + + | Author | [place] [employer] [facility] | + + + | Organization | [facility] [employer] [facility] [...] Providers + +------+ + | Care Can Feeder Name | Role | Phone | [...] [facility] | | | | | | [facility] | | | | | | and Healing, | | | | | | Building [address], | | | | | | Floor [place], [place] | | | | | | [address] | | | | | | [phone] | | | +--------+ + + + [...]
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
--- OUTSIDE RECORDS SUMMARY | ~2020-05-03 | XMS | Encounter Summary ---
Demographics + + + | Address | [address] | | | [place] [address] | + + + | Home Phone [...] Organization | [facility] | | | [...] Team Providers + +------+ + | Care Simulation Technician Name | Role | Phone | + +------+ + PCP | Unavailable | + +------+ + Encounter Details +--------+ + + + + | Date | Type | Department | Care Team | Description | +--------+ + + + + | 01/01/ | Hospital | [facility] | [place], | | | 2009 | Encounter | MED CTR EMERGENCY | Brad Yu MD [address] | | | | | [place] [address] | [facility] | | | | | [place] | [place] [address] | | | | | [address] | [phone] | | | | | [phone] | | | +--------+ + + + [...]
--- OUTSIDE RECORDS SUMMARY | ~2020-05-03 | XMS | Encounter Summary ---
Demographics + + + | Address | [address] | | | [place] [address] | + + + | Home Phone [...] + + + | Author | [place] [employer] Science [facility] | + + + | Organization | Count Includes [facility] Comprehensive Care Science [facility] [...] Team Providers + +------+ + | Care Cardiothoracic Icu Rn Name | Role | Phone | [...] [facility] | [place], [place] | | | | | Health and Healing, | [address] | | | | | Building [address] | | | | | | Floor [place], [place] | | | | | | [address] | | | | | | [phone] | | | +--------+ + + + [...]
--- OUTSIDE RECORDS SUMMARY | ~2020-05-03 | XMS | Encounter Summary ---
Demographics + + + | Address | [address] | | | [place] [address] | + + + | Home Phone [...] + + + | Author | [place] [employer] Science [facility] | + + + | Organization | [facility] [employer] [facility] | + [...] Providers + +------+ + | Care Assisted Sales Representative Name | Role | Phone | + +------+ + | Brenden [place] MD | PCP | | + +------+ + Encounter Details +--------+ + + + + | Date | Type | Department | Care Team | Description | +--------+ + + + + | 02/23/ | Telephone | [facility] | Brad Currie MD | | | 2006 | | [place] | | | | | | Neuro-Ophthalmology | | | | | | [address] [facility] | | | | | | Mailcode: PATTI | | | | | | [place] [address] | | | | | | [phone] | | | +--------+ + + + [...]
--- OUTSIDE RECORDS SUMMARY | ~2020-05-03 | XMS | Encounter Summary ---
Demographics + + + | Address | [address] | | | [place] [address] | + + + | Home Phone [...] + + + | Author | [place] [employer] Science [facility] | + + + | Organization | [facility] Science [facility] | + + [...] Providers + +------+ + | Care Intelligence Clerk Name | Role | Phone | + +------+ + | Brenden [place] MD | PCP | | + +------+ + Encounter Details +--------+ + + + + | Date | Type | Department | Care Team | Description | +--------+ + + + + | 02/23/ | Telephone | [facility] | Brad Currie MD | | | 2006 | | [place] | | | | | | Neuro-Ophthalmology | | | | | | [address] [facility] | | | | | | Mailcode: PATTI | | | | | | [place] [address] | | | | | | [phone] | | | +--------+ + + + [...]
--- OUTSIDE RECORDS SUMMARY | ~2020-05-03 | XMS | Encounter Summary ---
Demographics + + + | Address | [address] | | | [place] [address] | + + + | Home Phone [...] + + + | Author | [place] [employer] [facility] | + + + | Organization | [facility] Mandic Science [facility] | + + [...] Providers + +------+ + | Care Curriculum Counselor Name | Role | Phone | [...] | | | Ave Mailcode: CH8N | [place], [place] | | | | | [facility] | [address] | | | | | and Healing, | [phone] | | | | | [facility] | | | | | | Floor [place], [place] | | | | | | [address] | | | | | | [phone] | | | +--------+ + + + [...]
--- OUTSIDE RECORDS SUMMARY | ~2020-05-03 | XMS | Encounter Summary ---
Demographics + + + | Address | [address] | | | [place] [address] | + + + | Home Phone [...] + + + | Author | [place] [employer] Science [facility] | + + + | Organization | [facility] | + + [...] Providers + +------+ + | Care Single Pass Soil Stabilizer Operator Name | Role | Phone | [...] Refill Request | | 2012 | | [place]/Ophthalmol | MD Perry | | | | | ramonjaneen at [facility] [address] | | | | | | [address] [place] Mailcode: | | | | | | CH11P [facility] | | | | | | Health and Healing, | | | | | | [facility] | | | | | | Floor [place], [place] | | | | | | [address] | | | | | | [phone] | | | +--------+--------+ + + + [...]
--- OUTSIDE RECORDS SUMMARY | ~2020-05-03 | XMS | Encounter Summary ---
Demographics + + + | Address | [address] | | | [place] [address] | + + + | Home Phone [...] + + + | Author | [place] [employer] Science [facility] | + + + | Organization | [facility] 3i Systems Science [facility] | [...] Team Providers + +------+ + | Care Secure Software Assessor Name | Role | Phone | + +------+ + | Dennis Maddox | PCP | | + +------+ + Encounter Details +--------+ + + + + | Date | Type | Department | Care Team | Description | +--------+ + + + + | 02/28/ | Emergency | [facility] Emergency | | | | 2013 - | | Department [address] | | | | | [address] | | | | 03/01/ | | [facility] | | | | 2013 | | [place], [place] | | | | | | [address] | | | | | | [phone] | | | +--------+ + + + [...]
--- OUTSIDE RECORDS SUMMARY | ~2020-05-03 | XMS | Encounter Summary ---
Demographics + + + | Address | [address] | | | [place] [address] | + + + | Home Phone [...] + + + | Author | [place] [employer] Science [facility] | + + + | Organization | [facility] b-datum Science [facility] | + [...] Providers + +------+ + | Care Parts Interpreter Name | Role | Phone | + [...] | | | [address] Mailcode: [id number] | [place], [place] | | | | | [place], [place] | [address] | | | | | [address] | [phone] | | | | | [phone] | | | +--------+ + + + [...]
--- OUTSIDE RECORDS SUMMARY | ~2020-05-03 | XMS | Encounter Summary ---
Demographics + + + | Address | [address] | | | [place] [address] | + + + | Home Phone [...] | Organization | [facility] [...] + +------+ + | Care Public Relations Writer Name | Role | Phone | + +------+ + PCP | Unavailable | + +------+ + Encounter Details +--------+ + + + + | Date | Type | Department | Care Team | Description | +--------+ + + + + | 07/17/ | Hospital | [facility] | Dom[place], | | | 2010 | Encounter | [facility] | [address] | | | | | EMERGENCY CENTER | [place] [address] | | | | | [address] | [phone] | | | | | [place], [place] | | | | | | [address] | | | | | | [phone] | | | +--------+ + + + [...]
--- OUTSIDE RECORDS SUMMARY | ~2020-05-03 | XMS | Encounter Summary ---
Demographics + + + | Address | [address] | | | [place] [address] | + + + | Home Phone [...] + + + | Author | [place] [employer] Science [facility] | + + + | Organization | [facility] [employer] Science [facility] | [...] Team Providers + +------+ + | Care Wiping Rag Washer Name | Role | Phone | [...] Care Coordination | | 2018 | | [place] | MD [address] | | | | | Neuro-Ophthalmology | [facility] [place] | | | | | at [facility] [address] | [address] | | | | | Ave Mailcode: CH3G | [phone] | | | | | [facility] | | | | | | and Healing, | | | | | | Building | | | | | | Floor [place], [place] | | | | | | [address] | | | | | | [phone] | | | +--------+ + + + [...]
--- OUTSIDE RECORDS SUMMARY | ~2020-05-03 | XMS | Encounter Summary ---
Demographics + + + | Address | [address] | | | [place] [address] | + + + | Home Phone [...] + + + | Author | [place] [employer] Science [facility] | + + + | Organization | [facility] [employer] Science [facility] [...] Team Providers + +------+ + | Care Fudge Candy Maker Name | Role | Phone | [...] | | | Ave Mailcode: CH8N | [place], [place] | | | | | [facility] | [address] | | | | | and Healing, | [phone] | | | | | [facility] | | | | | | Floor [place], [place] | | | | | | [address] | | | | | | [phone] | | | +--------+ + + + [...]
--- OUTSIDE RECORDS SUMMARY | ~2020-05-03 | XMS | Encounter Summary ---
Demographics + + + | Address | [address] | | | [place] [address] | + + + | Home Phone [...] | Organization | [facility] | [...] Providers + +------+ + | Care Fire Extinguisher Installer Name | Role | Phone | + +------+ + PCP | Unavailable | + +------+ + Encounter Details +--------+ + + + + | Date | Type | Department | Care Team | Description | +--------+ + + + + | 11/22/ | Hospital | [facility] | | | | 1995 | Encounter | MED CTR EMERGENCY | | | | | | CENTER [address] | | | | | | [place] | | | | | | [address] | | | | | | [phone] | | | +--------+ + + + [...]
--- OUTSIDE RECORDS SUMMARY | ~2020-05-03 | XMS | Encounter Summary ---
Demographics + + + | Address | [address] | | | [place] [address] | + + + | Home Phone [...] + + + | Author | [place] [employer] Science [facility] | + + + | Organization | [facility] [employer] [facility] | + [...] Providers + +------+ + | Care Manager Regional Name | Role | Phone | + +------+ + | Pedro Luis Sams MD | PCP | | + +------+ + Encounter Details +--------+ + + + + | Date | Type | Department | Care Team | Description | +--------+ + + + + | 10/19/ | Telephone | [facility] | Funmilayo Osorio MD | | | 2010 | | [place]/Ophthalmol | [address] | | | | | leon at [facility] [address] | [place], [place] | | | | | [address] Mailcode: | [address] | | | | | CH11P [facility] | [phone] | | | | | Health and Healing, | | | | | | [facility] | | | | | | [place], [place] | | | | | | [address] | | | | | | [phone] | | | +--------+ + + + [...]
--- OUTSIDE RECORDS SUMMARY | ~2020-05-03 | XMS | Encounter Summary ---
Demographics + + + | Address | [address] | | | [place] [address] | + + + | Home Phone [...] Organization | [facility] | | | and [...] Team Providers + +------+ + | Care Broadcast Checker Name | Role | Phone | + +------+ + PCP | Unavailable | + +------+ + Encounter Details +--------+ + + + + | Date | Type | Department | Care Team | Description | +--------+ + + + + | 09/30/ | Hospital | [facility] | | | | 1991 | Encounter | MED CTR [facility] | | | | | | HEALTH [facility] [address] | | | | | | [place], | | | | | | [place] [address] | | | | | | [phone] | | | +--------+ + + + [...]
--- OUTSIDE RECORDS SUMMARY | ~2020-05-03 | XMS | Encounter Summary ---
Demographics + + + | Address | [address] | | | [place] [address] | + + + | Home Phone [...] + + + | Author | [place] [employer] Science [facility] | + + + | Organization | [facility] [employer] [facility] | [...] Providers + +------+ + | Care Laborer Turkey Farm Name | Role | Phone | + +------+ + | Brenden [place] MD | PCP | | + +------+ + Encounter Details +--------+ + + + + | Date | Type | Department | Care Team | Description | +--------+ + + + + | 01/05/ | Telephone | [facility] | Brad Currie MD | | | 2006 | | [place] | | | | | | Neuro-Ophthalmology | | | | | | [address] [facility] | | | | | | Mailcode: PATTI | | | | | | [place] [address] | | | | | | [phone] | | | +--------+ + + + [...]
--- OUTSIDE RECORDS SUMMARY | ~2020-05-03 | XMS | Encounter Summary ---
Demographics + + + | Address | [address] | | | [place] [address] | + + + | Home Phone [...] + + + | Author | [place] [employer] Science [facility] | + + + | Organization | [facility] [employer] Science [facility] [...] Team Providers + +------+ + | Care Biomedical Technician Name | Role | Phone | [...] Ave Mailcode: CH8N | [place], [place] | Encounters | | | | [facility] | [address] | | | | | and [place], | [phone] | | | | | [facility] | | | | | | Floor [place], [place] | | | | | | [address] | | | | | | [phone] | | | +--------+ + + + [...]
--- OUTSIDE RECORDS SUMMARY | ~2020-05-03 | XMS | Encounter Summary ---
Demographics + + + | Address | [address] | | | [place] [address] | + + + | Home Phone [...] Organization | [facility] [...] Providers + +------+ + | Care Transition Specialist Name | Role | Phone | + +------+ + PCP | Unavailable | + +------+ + Encounter Details +--------+ + + + + | Date | Type | Department | Care Team | Description | +--------+ + + + + | 11/22/ | Hospital | [facility] | | | | 1995 | Encounter | MED CTR EMERGENCY | | | | | | CENTER [address] | | | | | | [place] | | | | | | [address] | | | | | | [phone] | | | +--------+ + + + [...]
--- OUTSIDE RECORDS SUMMARY | ~2020-05-03 | XMS | Encounter Summary ---
Demographics + + + | Address | [address] | | | [place] [address] | + + + | Home Phone [...] + + + | Author | [place] [employer] Science [facility] | + + + | Organization | [facility] [employer] [facility] | + + [...] Providers + +------+ + | Care Assistant Warehouse Manager Name | Role | Phone | [...] | | | Ave Mailcode: CH8N | [place], [place] | | | | | [facility] | [address] | | | | | and [place], | [phone] | | | | | [facility] | | | | | | Floor [place], [place] | | | | | | [address] | | | | | | [phone] | | | +--------+ + + + [...]
--- OUTSIDE RECORDS SUMMARY | ~2020-05-03 | XMS | Encounter Summary ---
Demographics + + + | Address | [address] | | | [place] [address] | + + + | Home Phone [...] + + + | Author | [place] [employer] Science [facility] | + + + | Organization | [facility] [employer]re[employer] Science [facility] | [...] Team Providers + +------+ + | Care Risk Engineer Name | Role | Phone | [...] | | | Ave Mailcode: CH8N | [place], [place] | | | | | [facility] | [address] | | | | | and Healing, | [phone] | | | | | [facility] | | | | | | Floor [place], [place] | | | | | | [address] | | | | | | [phone] | | | +--------+ + + + [...]
--- OUTSIDE RECORDS SUMMARY | ~2020-05-03 | XMS | Encounter Summary ---
Demographics + + + | Address | [address] | | | [place] [address] | + + + | Home Phone [...] | Organization | [facility] | [...] Team Providers + +------+ + | Care Biochemistry Specialist Name | Role | Phone | + +------+ + PCP | Unavailable | + +------+ + Encounter Details +--------+ + + + + | Date | Type | Department | Care Team | Description | +--------+ + + + + | 09/30/ | Hospital | [facility] | | | | 1991 | Encounter | MED CTR WOMENS | | | | | | HEALTH SV [address] | | | | | | [place], | | | | | | [place] [address] | | | | | | [phone] | | | +--------+ + + + [...]
--- OUTSIDE RECORDS SUMMARY | ~2020-05-03 | XMS | Encounter Summary ---
Demographics + + + | Address | [address] | | | [place] [address] | + + + | Home Phone [...] + + + | Author | [place] [employer] [facility] | + + + | Organization | [facility] [employer] [facility] | + + [...] Providers + +------+ + | Care Manager Database Name | Role | Phone | + [...] Cerebri | | 2006 | Visit | [place] | [address] | (Primary Dx) | | | | Oculoplastics at | [place], [place] | | | | | [address] | [address] | | | | | [address] | [phone] | | | | | [facility] [place] | | | | | | [facility], [address] [place] [address] | | | | | | [place] [address] | | | | | | [phone] | | | +--------+---------+ + + + [...]
--- OUTSIDE RECORDS SUMMARY | ~2020-05-03 | XMS | Encounter Summary ---
Demographics + + + | Address | [address] | | | [place] [address] | + + + | Home Phone [...] + + | Organization | [facility] | | [...] Providers + +------+ + | Care Corporate Treasury Analyst Name | Role | Phone | + +------+ + PCP | Unavailable | + +------+ + Encounter Details +--------+ + + + + | Date | Type | Department | Care Team | Description | +--------+ + + + + | 09/30/ | Hospital | [facility] | | | | 1990 | Encounter | MED CTR EMERGENCY | | | | | | CENTER [address] | | | | | | [place] | | | | | | [address] | | | | | | [phone] | | | +--------+ + + + [...]
--- OUTSIDE RECORDS SUMMARY | ~2020-05-03 | XMS | Encounter Summary ---
Demographics + + + | Address | [address] | | | [place] [address] | + + + | Home Phone [...] + + + | Author | [place] [employer] [facility] | + + + | Organization | [facility] [employer] [facility] | [...] Team Providers + +------+ + | Care Plate Worker Helper Name | Role | Phone [...] | Prescription | | 2012 | | [place]/Ophthalmol | MD Perry | | | | | leon at [facility] [address] | | | | | | Gianluca Kirk Mailcode: | | | | | | CH11P [facility] | | | | | | Health and [facility], | | | | | | Building | | | | | | [place], [place] | | | | | | [address] | | | | | | [phone] | | | +--------+ + + + [...]
--- OUTSIDE RECORDS SUMMARY | ~2020-05-03 | XMS | Encounter Summary ---
Demographics + + + | Address | [address] | | | [place] [address] | [...] + + + | Author | [place] [employer] [facility] | + + + | Organization | [facility] [employer] [facility] [...] Providers + +------+ + | Care Hairspring Fabrication Supervisor Name | Role | Phone | [...] | CH[facility]N [facility] | [place], [place] | | | | | Health and Healing, | [address] | | | | | Building [address]th | | | | | | Floor [place], [place] | | | | | | [address] | | | | | | [phone] | | | +--------+ + + + [...]
--- OUTSIDE RECORDS SUMMARY | ~2020-05-03 | XMS | Encounter Summary ---
Demographics + + + | Address | [address] | | | [place] [address] | + + + | Home Phone [...] + + | Author | [place] [employer] [facility] | + + + | Organization | [facility] [employer] [facility] [...] Team Providers + +------+ + | Care Entrepreneurship Program Director Name | Role | Phone [...] Letter Encounter | | 2008 | | [facility] | [address] | | | | | and Healing [address] | [place], [place] | | | | | [address] Mailcode: | [address] | | | | | CH8N | [phone] | | | | | Health and Healing, | | | | | | Building [address], | | | | | | Floor [place], [place] | | | | | | [address] | | | | | | [phone] | | | +--------+ + + + [...]
--- OUTSIDE RECORDS SUMMARY | ~2020-05-03 | XMS | Encounter Summary ---
Demographics + + + | Address | [address] | | | [place] [address] | + + + | Home Phone [...] + + | Author | [place] [employer] [facility] | + + + | Organization | [facility] [employer] [facility] | + [...] Team Providers + +------+ + | Care Pet Caretaker Name | Role | Phone | + [...] Cerebri | | 2006 | Visit | [place] | | (Primary Dx) | | | | Neuro-Ophthalmology | | | | | | [address] [facility] | | | | | | Mailcode: PATTI | | | | | | [place] [address] | | | | | | [phone] | | | +--------+---------+ + + + [...] Referred by: CASIMIRO PAYTON MD [address] [place] [address] Symptoms: Patient feels things are better. Vision [...] Brad Currie MD Neuro-Ophthalmology and Cerebrovascular Disease It Risk And Assurance Manager of Ophthalmology, Neurology, and Neurosurgery documented [...]
--- OUTSIDE RECORDS SUMMARY | ~2020-05-03 | XMS | Encounter Summary ---
Demographics + + + | Address | [address] | | | [place] [address] | + + + | Home Phone [...] | Organization | [facility] | [...] Team Providers + +------+ + | Care Milking Machine Operator Name | Role | Phone | + +------+ + PCP | Unavailable | + +------+ + Encounter Details +--------+ + + + + | Date | Type | Department | Care Team | Description | +--------+ + + + + | 05/28/ | Hospital | [facility] | | | | 1991 | Encounter | MED CTR EMERGENCY | | | | | | CENTER [address] | | | | | | [place] | | | | | | [address] | | | | | | [phone] | | | +--------+ + + + [...]
--- OUTSIDE RECORDS SUMMARY | ~2020-05-03 | XMS | Encounter Summary ---
Demographics + + + | Address | [address] | | | [place] [address] | + + + | Home Phone [...] + + + | Author | [place] [employer] [facility] | + + + | Organization | [facility] [employer] [facility] | + [...] Providers + +------+ + | Care Independent Living Advisor Name | Role | Phone | [...] | | [place] Mailcode:OP14B | Sandra Mal[place], | | | | | [facility] | [place] [address] | | | | | [place], [place] | | | | | | [address] | | | | | | [phone] | | | +--------+ + + + [...]
--- OUTSIDE RECORDS SUMMARY | ~2020-05-03 | XMS | Encounter Summary ---
Demographics + + + | Address | [address] | | | [place] [address] | + + + | Home Phone [...] + + + | Author | [place] [employer] [facility] | + + + | Organization | [facility] [email or web address] [facility] [...] Team Providers + +------+ + | Care Recreational Resort Manager Name | Role | Phone | + +------+ + | Brenden Benavides MD | PCP | | + +------+ + Encounter Details +--------+ + + + + | Date | Type | Department | Care Team | Description | +--------+ + + + + | 02/23/ | Telephone | [facility] | Brad Currie MD | | | 2006 | | [place] | | | | | | Neuro-Ophthalmology | | | | | | [address] | | | | | | Mailcode: PATTI | | | | | | [place] [address] | | | | | | [phone] | | | +--------+ + + + [...]
--- OUTSIDE RECORDS SUMMARY | ~2020-05-03 | XMS | Encounter Summary ---
Demographics + + + | Address | [address] | | | [place] [address] | + + + | Home Phone [...] Organization | [facility] | [...] Providers + +------+ + | Care House Wrecker Name | Role | Phone | + [...] | | | | | | [place] [address] | | | | | | [phone] | | | +--------+ + + + [...]
--- OUTSIDE RECORDS SUMMARY | ~2020-05-03 | XMS | Encounter Summary ---
Demographics + + + | Address | [address] | | | [place] [address] | + + + | Home Phone [...] + + + | Author | [place] [employer] [facility] | + + + | Organization | [facility] [employer] [facility] | + [...] Providers + +------+ + | Care Cable Tender Name | Role | Phone | + +------+ + | Brenden Benavides MD | PCP | | + +------+ + Encounter Details +--------+ + + + + | Date | Type | Department | Care Team | Description | +--------+ + + + + | 02/22/ | Telephone | [facility] | Hay Hughes MD [address] | | | 2006 | | [place] | [address] | | | | | Oculoplastics at | [place], [place] | | | | | [address] | [address] | | | | | [address] | [phone] | | | | | [facility] [place] | | | | | | [address] | | | | | | [place] [address] | | | | | | [phone] | | | +--------+ + + + [...]
--- OUTSIDE RECORDS SUMMARY | ~2020-05-03 | XMS | Encounter Summary ---
Demographics + + + | Address | [address] | | | [place] [address] | + + + | Home Phone [...] Organization | [facility] [...] Team Providers + +------+ + | Care Parasitologist Name | Role | Phone | + +------+ + PCP | Unavailable | + +------+ + Encounter Details +--------+ + + + + | Date | Type | Department | Care Team | Description | +--------+ + + + + | 05/21/ | Hospital | [facility] | | | | 1991 | Encounter | MED CTR WOMENS | | | | | | HEALTH SV [address] | | | | | | [place], | | | | | | [place] [address] | | | | | | [phone] | | | +--------+ + + + [...]
--- OUTSIDE RECORDS SUMMARY | ~2020-05-03 | XMS | Encounter Summary ---
Demographics + + + | Address | [address] | | | [place] [address] | + + + | Home Phone [...] | Organization | [facility] | [...] Providers + +------+ + | Care Continuous Vulcanizing Machine Operator Name | Role | Phone | + +------+ + PCP | Unavailable | + +------+ + Encounter Details +--------+ + + + + | Date | Type | Department | Care Team | Description | +--------+ + + + + | 08/03/ | Hospital | [facility] | | | | 1990 | Encounter | MED CTR EMERGENCY | | | | | | CENTER [address] | | | | | | [place] | | | | | | [address] | | | | | | [phone] | | | +--------+ + + + [...]
--- OUTSIDE RECORDS SUMMARY | ~2020-05-03 | XMS | Encounter Summary ---
Demographics + + + | Address | [address] | | | [place] [address] | + + + | Home Phone [...] | Organization | [facility] | [...] Team Providers + +------+ + | Care Swim Coach Name | Role | Phone | + +------+ + PCP | Unavailable | + +------+ + Encounter Details +--------+ + + + + | Date | Type | Department | Care Team | Description | +--------+ + + + + | 04/24/ | Hospital | [facility] | | | | 2004 | Encounter | MED CTR EMERGENCY | | | | | | CENTER [address] | | | | | | [place] | | | | | | [address] | | | | | | [phone] | | | +--------+ + + + [...]
--- OUTSIDE RECORDS SUMMARY | ~2020-05-03 | XMS | Encounter Summary ---
Demographics + + + | Address | [address] | | | [place] [address] | + + + | Home Phone [...] | Organization | [facility] [...] Providers + +------+ + | Care System Programmer Name | Role | Phone | + +------+ + PCP | Unavailable | + +------+ + Encounter Details +--------+ + + + + | Date | Type | Department | Care Team | Description | +--------+ + + + + | 10/21/ | Hospital | [facility] | | | | 1991 | Encounter | MED CTR WOMENS | | | | | | HEALTH SV [address] | | | | | | [place], | | | | | | [place] [address] | | | | | | [phone] | | | +--------+ + + + [...]
--- OUTSIDE RECORDS SUMMARY | ~2020-05-03 | XMS | Encounter Summary ---
Demographics + + + | Address | [address] | | | [place] [address] | + + + | Home Phone [...] Organization | [facility] | | [...] Providers + +------+ + | Care Automobile Taillight Assembler Name | Role | Phone | + +------+ + PCP | Unavailable | + +------+ + Encounter Details +--------+ + + + + | Date | Type | Department | Care Team | Description | +--------+ + + + + | 11/04/ | Hospital | [facility] | Unknown, | | | 2004 | Encounter | MED CTR XRAY [address] | MD Sudhakar . | | | | | [place] | | | | | | [place] [address] | (Fax) | | | | | [phone] | | | +--------+ + + + [...]
--- OUTSIDE RECORDS SUMMARY | ~2020-05-03 | XMS | Encounter Summary ---
Demographics + + + | Address | [address] | | | [place] [address] | + + + | Home Phone [...] | [facility] | [...] Providers + +------+ + | Care Sub Arc Operator Name | Role | Phone | + +------+ + PCP | Unavailable | + +------+ + Encounter Details +--------+ + + + + | Date | Type | Department | Care Team | Description | +--------+ + + + + | 10/22/ | Hospital | [facility] | | | | 1991 - | Encounter | MED CTR WOMENS | | | | | | [facility] [address] | | | | 10/24/ | | [place], | | | | 1991 | | [place] [address] | | | | | | [phone] | | | +--------+ + + + [...]
--- OUTSIDE RECORDS SUMMARY | ~2020-05-03 | XMS | Encounter Summary ---
Demographics + + + | Address | [address] | | | [place] [address] | + + + | Home Phone [...] Organization | [facility] [...] Providers + +------+ + | Care Commercial Painter Name | Role | Phone | + +------+ + PCP | Unavailable | + +------+ + Encounter Details +--------+ + + + + | Date | Type | Department | Care Team | Description | +--------+ + + + + | 08/21/ | Hospital | [facility] | | | | 1991 | Encounter | MED CTR EMERGENCY | | | | | | CENTER [address] | | | | | | [place] | | | | | | [address] | | | | | | [phone] | | | +--------+ + + + [...]
--- OUTSIDE RECORDS SUMMARY | ~2020-05-03 | XMS | Encounter Summary ---
Demographics + + + | Address | [address] | | | [place] [address] | + + + | Home Phone [...] + | Organization | [facility] | [...] Providers + +------+ + | Care Apprentice Lineman Third Step Name | Role | Phone | + +------+ + PCP | Unavailable | + +------+ + Encounter Details +--------+ + + + + | Date | Type | Department | Care Team | Description | +--------+ + + + + | 06/10/ | Hospital | [facility] | | | | 1991 | Encounter | MED CTR WOMENS | | | | | | HEALTH SV [address] | | | | | | [place], | | | | | | [place] [address] | | | | | | [phone] | | | +--------+ + + + [...]
--- OUTSIDE RECORDS SUMMARY | ~2020-05-03 | XMS | Clinical Summary ---
Demographics + + + | Address | [address] | | | [place] [address] | + + + | Home Phone [...] Organization | [facility] | [...] Team Providers + +------+ + | Care First Assist Name | Role | Phone | + [...] +---------+--------+ | [place] | MEDICA | [id number] | 11/09/ | [phone] | | Medica | | | ID [place] | | 2018-P | 2 | | id | | | PLUS | | resent | | | | + +--------+ +--------+ +---------+--------+ | [facility] | IHS | [id number] | 11/08/ | | | Indemn | [...] | 1975 | [phone] | [place] [address] | | | rene | | | 5 (Home) | | + +--------+ +--------+ + + Advance Directives + + + + + | Type | Date Recorded | Patient | Explanation | | | | Bagging Machine Operator | | + + + + + | Power of | | | | | Lumber Mover | | | | + + + + + | Advance | | | | | Directive | | | | + + + + +
--- OUTSIDE RECORDS SUMMARY | ~2020-05-03 | XMS | Encounter Summary ---
Demographics + + + | Address | [address] | | | [place] [address] | + + + | Home Phone [...] + + + | Author | [place] [employer] [facility] | + + + | Organization | [facility] [employer] [facility] [...] Providers + +------+ + | Care Sewing Trimmer Name | Role | Phone | [...] | | | | | cerebri | [address] | | | | | | Procedures | Ave | | | | | | CONSULT TO | [place], [place] | | | | | | [facility] | [address] | | | | | | | Phone: | | | | | | | [phone] | | | | | | | Fax: | | | | | | | [phone] | | +--------+--------+ + + + + [...] Cerebri | | 2005 | Visit | [facility] | [address] | (Primary Dx) | | | | Rd Mailcode:OP14B | [place], [place] | | | | | [facility] | [address] | | | | | [place], [place] | [phone] | | | | | [address] | | | | | | [phone] | | | +--------+---------+ + + + [...] pressu re. Referral to Dr. Maloney in [place] where a lumboperitoneal shunt was placed and subsequently explanted due to infection and migration of the catheter tip from the peritoneal space. She feels that her symptoms were helped at the time of the placement of the shunt; the head aches and visual problems have worsened since shunt removal. She has opted to come to [facility] rather than to return to [place] based on travel convenience. Review of [...] brain without; Neuro-ophthalmology consultation. documented in this ohiohealtht er Plan of Treatment Not on filedocumented [...] | | + +---------+ + + | [facility] DEPARTMENT OF | | | | | RADIOLOGY | | | | + +---------+ + + documented in this encounter Visit Diagnoses + + | Diagnosis | + + | Pseudotumor cerebri - Primary Benign intracranial hypertension | + + documented in this encounter
--- OUTSIDE RECORDS SUMMARY | ~2020-05-03 | XMS | Encounter Summary ---
Demographics + + + | Address | [address] | | | [place] [address] | + + + | Home Phone [...] + + + | Author | [place] [employer] [facility] | + + + | Organization | [facility] [place] [employer] [facility] | [...] +------+ + | Care Injection Molding Machine Setter Name | Role | Phone | + +------+ + | Pedro Luis Smas MD | PCP | | + +------+ [...] Rd | | | | | | [place], [place] | | | | | | [address] | | | +--------+ + + + [...]
--- OUTSIDE RECORDS SUMMARY | ~2020-05-03 | XMS | Encounter Summary ---
Demographics + + + | Address | [address] | | | [place] [address] | + + + | Home Phone [...] Organization | [facility] | | [...] Providers + +------+ + | Care Third Hand Name | Role | Phone | + +------+ + PCP | Unavailable | + +------+ + Encounter Details +--------+ + + + + | Date | Type | Department | Care Team | Description | +--------+ + + + + | 05/31/ | Hospital | [facility] | | | | 1991 | Encounter | MED CTR WOMENS | | | | | | HEALTH SV [address] | | | | | | [place], | | | | | | [place] [address] | | | | | | [phone] | | | +--------+ + + + [...]
--- OUTSIDE RECORDS SUMMARY | ~2020-05-03 | XMS | Encounter Summary ---
Demographics + + + | Address | [address] | | | [place] [address] | + + + | Home Phone [...] Organization | [facility] | [...] Team Providers + +------+ + | Care Plumbing Designer Name | Role | Phone | + +------+ + PCP | Unavailable | + +------+ + Encounter Details +--------+ + + + + | Date | Type | Department | Care Team | Description | +--------+ + + + + | 10/14/ | Hospital | [facility] | | | | 1991 | Encounter | MED CTR WOMENS | | | | | | HEALTH SV [address] | | | | | | [place], | | | | | | [place] [address] | | | | | | [phone] | | | +--------+ + + + [...]
--- OUTSIDE RECORDS SUMMARY | ~2020-05-03 | XMS | Encounter Summary ---
Demographics + + + | Address | [address] | | | [place] [address] | + + + | Home Phone [...] + + + | Author | [place] [employer] [facility] | + + + | Organization | [facility] [...] Providers + +------+ + | Care Bundle Wrapper Name | Role | Phone | + +------+ + | Pedro Luis Sams MD | PCP | | + +------+ + Encounter Details +--------+ + + + + | Date | Type | Department | Care Team | Description | +--------+ + + + + | 08/31/ | Telephone | [facility] | Leticia Pitts MD | | | 2010 | | [place]/Ophthalmol | | | | | | leon at [facility] [address] | | | | | | Gianluca K[address] Mailcode: | | | | | | CH11P Center for | | | | | | Health and Healing, | | | | | | [facility] | | | | | | Floor [place], [place] | | | | | | [address] | | | | | | [phone] | | | +--------+ + + + [...]
--- OUTSIDE RECORDS SUMMARY | ~2020-05-03 | XMS | Encounter Summary ---
Demographics + + + | Address | [address] | | | [place] [address] | + + + | Home Phone [...] + + | Organization | [facility] [...] Team Providers + +------+ + | Care Respite Coordinator Name | Role | Phone | + +------+ + PCP | Unavailable | + +------+ + Encounter Details +--------+ + + + + | Date | Type | Department | Care Team | Description | +--------+ + + + + | 08/10/ | Hospital | [facility] | | | | 1990 | Encounter | MED CTR EMERGENCY | | | | | | CENTER [address] | | | | | | [place] | | | | | | [address] | | | | | | [phone] | | | +--------+ + + + [...]
--- OUTSIDE RECORDS SUMMARY | ~2020-05-03 | XMS | Clinical Summary ---
Demographics + + + | Address | [address] | | | [place] [address] | + + + | Home Phone [...] Team Providers + +------+ + | Care Microelectronics Technician Name | Role | Phone | + +------+ + | Dennis Maddox | PCP | | + +------+ + Source Comments REBECA is fully live on both [facility] and [facility] InPatient.[facility] Allergies + + + + [...] | | | + +--------+ +--------+-------+---------+--------+ | BACCARAT MANAGER MEDICAID | BACCARAT MANAGER | xxxxxxxx | 11/28/19 | | | [...] | 1975 | [phone] | [place] [address] | | | rene | | | 0 (Home) | | + +--------+ +--------+ + + Advance Directives + + + + + | Type | Date Recorded | Patient | Explanation | | | | Gyroscopic Instrument Tester | | + + + + + | Advance | | | | | Directives and | | | | | Living Will | | | | + + + + + | Power of | | | | | Wet Machine Cutter | | | | + + + [...]
--- OUTSIDE RECORDS SUMMARY | ~2020-05-03 | XMS | Encounter Summary ---
Demographics + + + | Address | [address] | | | [place] [address] | + + + | Home Phone [...] + + + | Author | [place] [employer] [facility] | + + + | Organization | [facility] [employer] [facility] [...] Team Providers + +------+ + | Care New Car Get Ready Mechanic Name | Role | Phone [...] | | 2006 | Visit | [place] | | (Primary Dx) | | | | Neuro-Ophthalmology | | | | | | [address] [facility] | | | | | | Mailcode: PATTI | | | | | | [place] [address] | | | | | | [phone] | | | +--------+---------+ + + + [...] Referred by: CASIMIRO PAYTON MD [address] [place] [address] Symptoms: Patient feels things are better. Vision [...] MD Neuro-Ophthalmology and Cerebrovascular Disease Founder And Ceo of Ophthalmology, Neurology, and Neurosurgery documented in [...]
--- OUTSIDE RECORDS SUMMARY | ~2020-05-03 | XMS | Encounter Summary ---
Demographics + + + | Address | [address] | | | [place] [address] | + + + | Home Phone [...] [facility] | | [...] Team Providers + +------+ + | Care Ambulatory Technologist Name | Role | Phone | + +------+ + PCP | Unavailable | + +------+ + Encounter Details +--------+ + + + + | Date | Type | Department | Care Team | Description | +--------+ + + + + | 07/10/ | Emergency | [facility] | Perry Flores | Headache; Benign | | 2012 | | MEDICAL CENTER | [place] [address] | intracranial | | | | EMERGENCY CENTER | [address] | hypertension; Back | | | | [address] | [place] [address] | pain | | | | [place], [place] | [phone] | | | | | [address] | | | | | | [phone] | | | +--------+ + + + [...]
--- OUTSIDE RECORDS SUMMARY | ~2020-05-03 | XMS | Encounter Summary ---
Demographics + + + | Address | [address] | | | [place] [address] | + + + | Home Phone [...] + + + | Author | [place] [employer] [facility] | + + + | Organization | [facility] [...] Team Providers + +------+ + | Care Quenching Machine Operator Name | Role | Phone [...] Center | | | | | | [place], [place] | | | | | | [address] | | | | | | [phone] | | | +--------+ + + + [...]
--- OUTSIDE RECORDS SUMMARY | ~2020-05-03 | XMS | Encounter Summary ---
Demographics + + + | Address | [address] | | | [place] [address] | + + + | Home Phone [...] + + | Author | [place] [employer] Science [facility] | + + + | Organization | [facility] [email or web address] Application [facility] [...] Team Providers + +------+ + | Care Monotype Setter Name | Role | Phone | [...] | | | Ave Mailcode: CH[address]N | [place], [place] | | | | | [facility] | [address] | | | | | and Healing, | [phone] | | | | | [facility] | | | | | | Floor [place], [place] | | | | | | [address] | | | | | | [phone] | | | +--------+ + + + [...]
--- OUTSIDE RECORDS SUMMARY | ~2020-05-03 | XMS | Encounter Summary ---
Demographics + + + | Address | [address] | | | [place] [address] | + + + | Home Phone [...] + + + | Author | [place] [employer] Science [facility] | + + + | Organization | [facility] [email or web address] Science [facility] [...] Providers + +------+ + | Care Associate Doctor Name | Role | Phone | [...] | | and Healing [address] | [place], [place] | | | | | [address] Mailcode: | [address] | | | | | CH[address] [facility] | [phone] | | | | | Health and Healing, | | | | | | Building 1, | | | | | | Floor [place], [place] | | | | | | [address] | | | | | | [phone] | | | +--------+ + + + [...]
--- OUTSIDE RECORDS SUMMARY | ~2020-05-03 | XMS | Encounter Summary ---
Demographics + + + | Address | [address] | | | [place] [address] | + + + | Home Phone [...] [facility] | [...] Providers + +------+ + | Care Nursing Home Admissions Director Name | Role | Phone | + +------+ + PCP | Unavailable | + +------+ + Encounter Details +--------+ + + + + | Date | Type | Department | Care Team | Description | +--------+ + + + + | 10/12/ | Hospital | [facility] | | | | 1991 | Encounter | [facility] | | | | | | HEALTH [address] | | | | | | [place], | | | | | | [place] [address] | | | | | | [phone] | | | +--------+ + + + [...]
--- OUTSIDE RECORDS SUMMARY | ~2020-05-03 | XMS | Encounter Summary ---
Demographics + + + | Address | [address] | | | [place] [address] | + + + | Home Phone [...] | Organization | [facility] [...] Team Providers + +------+ + | Care Stripper Black And White Name | Role | Phone | + +------+ + PCP | Unavailable | + +------+ + Encounter Details +--------+ + + + + | Date | Type | Department | Care Team | Description | +--------+ + + + + | 07/12/ | Hospital | [facility] | Conversion | | | 2010 | Encounter | HEART MED CTR | Transaction, | | | | | EMERGENCY CENTER | Provider Unknown | | | | | [address] | | | | | | [place] | (Fax) | | | | | [address] | | | | | | [phone] | | | +--------+ + + + [...]
--- OUTSIDE RECORDS SUMMARY | ~2020-05-03 | XMS | Encounter Summary ---
Demographics + + + | Address | [address] | | | [place] [address] | + + + | Home Phone [...] + + + | Author | [place] Youth Noise Science [facility] | + + + | Organization | [facility] Pro[facility]ible [facility] [...] Team Providers + +------+ + | Care Pesticide Applicator Name | Role | Phone | [...] | | | Ave Mailcode: CH8N | [place], [place] | Encounters | | | | [facility] | [address] | | | | | and [place], | [phone] | | | | | [facility] | | | | | | Floor [place], [place] | | | | | | [address] | | | | | | [phone] | | | +--------+ + + + [...]
--- OUTSIDE RECORDS SUMMARY | ~2020-05-03 | XMS | Encounter Summary ---
Demographics + + + | Address | [address] | | | [place] [address] | + + + | Home Phone [...] + + | Author | [place] [employer] [facility] | + + + | Organization | [facility] [employer] [facility] | + + [...] Providers + +------+ + | Care Floorworker Distributor Name | Role | Phone | [...] Refill Request | | 2007 | | [facility] | [place]SE | | | | | and Healing [address] | Neurosurgery [address] | | | | | Gianluca Kirk Mailcode: | [address] | | | | | CH8N [facility] | [place], [place] | | | | | Health and Healing, | [address] | | | | | Building | | | | | | Floor [place], [place] | | | | | | [address] | | | | | | [phone] | | | +--------+--------+ + + + [...]
--- OUTSIDE RECORDS SUMMARY | ~2020-05-03 | XMS | Encounter Summary ---
Demographics + + + | Address | [address] | | | [place] [address] | + + + | Home Phone [...] + + + | Author | [place] Zuki Science [facility] | + + + | Organization | [facility] | + + [...] Providers + +------+ + | Care Newspaper Reporter Name | Role | Phone | [...] | | | Ave Mailcode: CH8N | [place], [place] | | | | | [facility] | [address] | | | | | and Healing, | [phone] | | | | | [facility] | | | | | | Floor [place], [place] | | | | | | [address] | | | | | | [phone] | | | +--------+---------+ + + + [...]
--- OUTSIDE RECORDS SUMMARY | ~2020-05-03 | XMS | Encounter Summary ---
Demographics + + + | Address | [address] | | | [place] [address] | + + + | Home Phone [...] Organization | [facility] And [...] Providers + +------+ + | Care Oil Winterizer Name | Role | Phone | + +------+ + PCP | Unavailable | + +------+ + Encounter Details +--------+ + + + + | Date | Type | Department | Care Team | Description | +--------+ + + + + | 10/10/ | Hospital | [facility] | | | | 1991 | Encounter | MED [facility] | | | | | | HEALTH [address] | | | | | | [place], | | | | | | [place] [address] | | | | | | [phone] | | | +--------+ + + + [...]
--- OUTSIDE RECORDS SUMMARY | ~2020-05-03 | XMS | Encounter Summary ---
Demographics + + + | Address | [address] | | | [place] [address] | + + + | Home Phone [...] + + + | Author | [place] [employer] Science [facility] | + + + | Organization | [facility] Civilised[employer] Science [facility] | + + [...] Providers + +------+ + | Care Truck Crane Operator Helper Name | Role | Phone [...] | | | Ave Mailcode: CH8N | [place], [place] | | | | | [facility] | [address] | | | | | and Healing, | [phone] | | | | | [facility] | | | | | | Floor [place], [place] | | | | | | [address] | | | | | | [phone] | | | +--------+---------+ + + + [...] wanted to have LP shunt instead of IT QUALITY ANALYST shunt because she d oes not [...]
--- OUTSIDE RECORDS SUMMARY | ~2020-05-03 | XMS | Encounter Summary ---
Demographics + + + | Address | [address] | | | [place] [address] | + + + | Home Phone [...] [facility] | [...] Providers + +------+ + | Care Head Banquet Waiter/Waitress Name | Role | Phone | + +------+ + PCP | Unavailable | + +------+ + Encounter Details +--------+ + + + + | Date | Type | Department | Care Team | Description | +--------+ + + + + | 08/16/ | Hospital | [facility] | | | | 1990 | Encounter | MED CTR EMERGENCY | | | | | | CENTER [address] | | | | | | [place] | | | | | | [address] | | | | | | [phone] | | | +--------+ + + + [...]
--- OUTSIDE RECORDS SUMMARY | ~2020-05-03 | XMS | Encounter Summary ---
Demographics + + + | Address | [address] | | | [place] [address] | + + + | Home Phone [...] + + + | Author | [place] [employer] [facility] | + + + | Organization | [facility] Yadio Science [facility] | + [...] Providers + +------+ + | Care Pipe Finisher Name | Role | Phone | + +------+ + | Dennis Maddox | PCP | | + +------+ + Encounter Details +--------+ + + + + | Date | Type | Department | Care Team | Description | +--------+ + + + + | 03/15/ | Telephone | [facility] | Ronaldo Martin MD | | | 2012 | | [place]/Ophthalmol | [facility] [place] [facility] | | | | | leon at [facility] [address] | [address] [place] [address] | | | | | Gianluca Kirk Mailcode: | [place] [address] | | | | | [address] [facility] | [phone] | | | | | Health and Healing, | | | | | | | | | | | | [place], [place] | | | | | | [address] | | | | | | [phone] | | | +--------+ + + + [...]
--- OUTSIDE RECORDS SUMMARY | ~2020-05-03 | XMS | Encounter Summary ---
Demographics + + + | Address | [address] | | | [place] [address] | + + + | Home Phone [...] + + + | Author | [place] [employer] Science [facility] | + + + | Organization | [facility] [employer] [facility] | [...] Team Providers + +------+ + | Care Packing House Supervisor Name | Role | Phone | [...] | | | Ave Mailcode: CH8N | [place], [place] | | | | | [facility] | [address] | | | | | and Healing, | [phone] | | | | | [facility] | | | | | | Floor [place], [place] | | | | | | [address] | | | | | | [phone] | | | +--------+ + + + [...]
--- OUTSIDE RECORDS SUMMARY | ~2020-05-03 | XMS | Encounter Summary ---
Demographics + + + | Address | [address] | | | [place] [address] | + + + | Home Phone [...] + + + | Author | [place] [employer] Science [facility] | + + + | Organization | [facility] [email or web address] Science [facility] [...] Providers + +------+ + | Care Plastic Cnc Machine Operator Name | Role | Phone [...] Kirk | | | | | CH8N [facility] | [place], [place] | | | | | Health and Healing, | [address] | | | | | Building [address], [address]th | | | | | | Floor [place], [place] | | | | | | [address] | | | | | | [phone] | | | +--------+ + + + [...]
--- OUTSIDE RECORDS SUMMARY | ~2020-05-03 | XMS | Encounter Summary ---
Demographics + + + | Address | [address] | | | [place] [address] | [...] + + | Author | [place] [employer] [facility] | + + + | Organization | [facility] | [...] Providers + +------+ + | Care Aboriginal Ceremonial Celebrant Name | Role | Phone | + [...] | Headache | | 2015 | | [place] | [address] | | | | | Neuro-Ophthalmology | [facility] [place] | | | | | at [facility] [address] | [address] | | | | | Ave Mailcode: [facility] | [phone] | | | | | [facility] | | | | | | and Healing, | | | | | | Building | | | | | | Floor [place], [place] | | | | | | [address] | | | | | | [phone] | | | +--------+ + + + [...]
--- OUTSIDE RECORDS SUMMARY | ~2020-05-03 | XMS | Encounter Summary ---
Demographics + + + | Address | [address] | | | [place] [address] | + + + | Home Phone [...] + + | Author | [place] [employer] Pharm[employer] Science [facility] | + + + | Organization | [facility] W[employer] Restaurant Science [facility] | [...] + +------+ + | Care Associate Professor Physician Name | Role | Phone | [...] | | Ave Mailcode: CH8N | [place], [place] | | | | | [facility] | [address] | | | | | and [facility], | [phone] | | | | | [facility] | | | | | | Floor [place], [place] | | | | | | [address] | | | | | | [phone] | | | +--------+ + + + [...]
--- OUTSIDE RECORDS SUMMARY | ~2020-05-03 | XMS | Encounter Summary ---
Demographics + + + | Address | [address] | | | [place] [address] | + + + | Home Phone [...] | Organization | [facility] | [...] Team Providers + +------+ + | Care Website Developer Name | Role | Phone | + +------+ + PCP | Unavailable | + +------+ + Encounter Details +--------+ + + + + | Date | Type | Department | Care Team | Description | +--------+ + + + + | 01/15/ | Hospital | [facility] | Marine [place] | | | 2011 | Encounter | MED CTR EMERGENCY | DO Gaurang Drake | | | | | [address] | [place], [place] | | | | | [place], [place] | [address] | | | | | [address] | | | | | | [phone] | | | +--------+ + + + [...]
--- OUTSIDE RECORDS SUMMARY | ~2020-05-03 | XMS | Encounter Summary ---
Demographics + + + | Address | [address] | | | [place] [address] | + + + | Home Phone [...] + + | Author | [place] [employer] Science [facility] | + + + | Organization | [facility] Gentis Science 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 Visual Acuity: [facility] RE 20/20-1 LE 20/25-2 NI [...]
--- OUTSIDE RECORDS SUMMARY | ~2020-05-03 | XMS | Encounter Summary ---
Demographics + + + | Address | [address] | | | [place] [address] | + + + | Home Phone [...] + + + | Author | [place] [employer] Science [facility] | + + + | Organization | [facility] [employer] Science [facility] | + + [...] Providers + +------+ + | Care Cement Storage Worker Name | Role | Phone | [...] | | Ophthalmology | | Non-[facility] | [place], | | | | | | Epic Dept | Graciela Guardado MD | | | | | | | [address] | | | | | | | Ave | | | | | | | [place], [place] | | | | | | | [address] | | | | | | | Phone: | | | | | | | [phone] | | | | | | | Fax: | | | | | | | [phone] | +--------+--------+ + + + + Encounter Details +--------+---------+ + + + | Date | Type | Department | Care Team | Description | +--------+---------+ + + + | 03/26/ | Office | [facility] | Mo Hood | Pseudotumor cerebri | | 2012 | Visit | [place]/Ophthalmol | MD Perry | (Primary Dx); | | | | ogy at [facility] [address] | | Depression; Type II | | | | [address] Mailcode: | | or unspecified type | | | | [facility] Center for | | diabetes mellitus | | | | Health and Healing, | | without mention of | | | | Building | | complication, not | | | | Floor [place], [place] | | stated as | | | | [address] | | uncontrolled; PTSD | | | | [phone] | | (post-traumatic | | | | [...] HPI: 37 y.o. year old female from [place] : Patient presents with: IIH - Idiopathic [...] live 4 hours away in [facility]. Tobacco use: reports that she has [...] Right Left Disc 1+ Optic disc edema, +HOISTING ENGINEER PILE DRIVING 2+ Optic disc edema, RNFL whitening at the superonasal borde r of the disc. There is spontaneous pulsing of the entire disc head with heart beat. C/D Ratio 0.1 0.1 Macula Normal Normal Vessels Engorged. tortuous Engorged. tortuous Periphery Normal Normal Neuro/Psych Oriented x3: Yes Mood/Affect: Normal See [facility] Ophthalmology Exam Module for additional exam information [...] tion (by Dr. Hughes at [facility] in 2006) and s/p multiple lumboperitoneal [...] Dr. Lux. Mo Hood MD Resident Physician [place] [place], PGY-2 [facility] Physician: Mo Hood MD, 03/26/2013 documented in [...]
--- OUTSIDE RECORDS SUMMARY | ~2020-05-03 | XMS | Encounter Summary ---
Demographics + + + | Address | [address] | | | [place] [address] | + + + | Home Phone [...] + | Organization | [facility] | | [...] Providers + +------+ + | Care Mobile Manager Name | Role | Phone | [...] | | [place] | [place] [address] | | | | | [address] | | | | | | [phone] | | | +--------+ + + + [...]
--- OUTSIDE RECORDS SUMMARY | ~2020-05-03 | XMS | Encounter Summary ---
Demographics + + + | Address | [address] | | | [place] [address] | + + + | Home Phone [...] Organization | [facility] | | | [...] Providers + +------+ + | Care State Highway Police Officer Name | Role | Phone | + +------+ + PCP | Unavailable | + +------+ + Encounter Details +--------+ + + + + | Date | Type | Department | Care Team | Description | +--------+ + + + + | 05/25/ | Hospital | [facility] | | | | 1991 | Encounter | MED [facility] | | | | | | HEALTH SV [address] | | | | | | [place], | | | | | | [place] [address] | | | | | | [phone] | | | +--------+ + + + [...]
--- OUTSIDE RECORDS SUMMARY | ~2020-05-03 | XMS | Encounter Summary ---
Demographics + + + | Address | [address] | | | [place] [address] | + + + | Home Phone [...] + + + | Author | [place] [employer] Science [facility] | + + + | Organization | [facility] Science [facility] [...] Team Providers + +------+ + | Care Internal Combustion Engineer Name | Role | Phone | [...] Erroneous Encounter | | 2007 | | [facility] | [facility] | - Disregard | | | | and Healing [address] | Neurosurgery [address] | | | | | [address] Mailcode: | [address] | | | | | CH[address]N Center for | [place], [place] | | | | | Health and Healing, | [address] | | | | | Building 1, | | | | | | Floor [place], [place] | | | | | | [address] | | | | | | [phone] | | | +--------+--------+ + + + [...]
--- OUTSIDE RECORDS SUMMARY | ~2020-05-03 | XMS | Encounter Summary ---
Demographics + + + | Address | [address] | | | [place] [address] | + + + | Home Phone [...] + + + | Author | [place] [employer] [facility] | + + + | Organization | [facility] [employer] [facility] [...] Team Providers + +------+ + | Care Coffee Sampler Name | Role | Phone | + [...] | | | | | | | [place] | | | | | | | [id number] | | | | | | | [facility] | | | | | | | [place], | | | | | | | [place] [address] | | | | | | | Phone: | | | | | | | [phone] | +--------+--------+ + + + + Encounter Details +--------+ + + + + | Date | Type | Department | Care Team | Description | +--------+ + + + + | 08/01/ | Hospital | [facility] [address] | Sam Pedroza MD | | | 2007 - | Encounter | [place] | [address] | | | | | [id number] [facility] | [place], [place] | | | 08/02/ | | HOSPITAL [place], | [address] | | | 2007 | | [place] [address] | [phone] | | | | | [phone] | | | +--------+ + + + [...] in 2 weeks, please call for appointment: [phone] Condition On Discharge: Vital Signs at discharge [...] in 2 weeks, please call for appointment: [phone] Condition On Discharge: Vital Signs at discharge [...] independently, has no ADL needs and [facility] Dr. Pedroza agreed that she would not need therapies. Spoke with RN who endorses that pt has been up independently last pm and this am. OT to sign off at this time. Yessenia Nowak, OTR/ L 95722 Tomasz Caldera Md - 02/2008 11:08 AM [...] + +---------+ + + | [facility] DEPARTMENT OF | | | | | RADIOLOGY | | | | + +---------+ + + OPERATION RECORD (08/01/2008 12:00 AM PDT) + + + | Narrative | Performed At | + + + | [id number] | | | [id number] | | | [place] [id number] Date: | | | 08/01/2008 Attending Surgeon: | | | Sam Pedroza M.D. Tie Puller(s): | | | Tomasz Rice M.D. | [...] | tonsils and then gently incised. A [place]iac 4 was then easily fed | | [...] | | | Pooja Pedroza M.D. / [id number] / | | | [id number] / [id number] / | | + + + + + | Procedure Note | + + | Krystal Rushing, Tomasz - 08/01/2008 12:00 AM PDT [id number] | | [id number] [facility] | | [id number] Date: 08/01/2008 Attending Surgeon: Sam | | Pooja Pedroza Tie Puller(s): Tomasz Rice M.D. | | Palomo Jansen [...] tonsils and | | thengently incised. A [place] 4 was then easily fed through it, [...] Sam Pedroza M.D. KG / | | [id number] / [id number] / [id number] / T: 08/02/2008 | |dripping from the [...] tonsils and then | |gently incised. A [place] 4 was then easily fed through it, [...] | | | |KG / HS | |[id number] / [id number] / 24634 / | | | | | | | | | | | | | | | | | | | | | + + TEACHING PHYSICIAN (08/01/2008 12:00 AM PDT) + + + | Narrative | Performed At | + + + | [id number] | | | [id number] | | | [place] [id number] | | | Date: 08/01/2008 Attending Surgeon: | | | Sam Pedroza M.D. Tie Puller(s): | | | Tomasz Rice M.D. | [...] | | | Pooja Pedroza / [place] [id number] / [id number] / 96529 / 28902 D: | | | 08/01/2008 | | + + + + + | Procedure Note | + + | Sam Pedroza MD - 08/01/2008 12:00 AM PDT [id number] | | [id number] [facility] | | [id number] Date: 08/01/2008ttending Surgeon: Sam | | Pooja Pedroza Tie Puller(s): Tomasz Rice M.D. | | Palomo Jansen [...] | Bisi. Sam Pedroza M.D. AD / [id number] / [id number] / [id number] / [id number]: | | 08/01/2008T: 08/01/2008 | | | [...] | | | |AD / HS | |[id number] / [id number] / 28209 / 90007 | | | | | | | [...]
--- OUTSIDE RECORDS SUMMARY | ~2020-05-03 | XMS | Encounter Summary ---
Demographics + + + | Address | [address] | | | [place] [address] | + + + | Home Phone [...] + + + | Author | [place] [employer] [facility] | + + + | Organization | [facility] [employer] [facility] | [...] Providers + +------+ + | Care Gas Turbine Assembler Name | Role | Phone [...] Telephone follow-up | | 2015 | | [place] | [address] | | | | | Neuro-Ophthalmology | [place], [place] | | | | | at [facility] [address] | [address] | | | | | Ave Mailcode: [facility] | [phone] | | | | | [facility] | | | | | | and [address], | | | | | | | | | | | | Floor [place], [place] | | | | | | [address] | | | | | | [phone] | | | +--------+ + + + [...]
--- OUTSIDE RECORDS SUMMARY | ~2020-05-03 | XMS | Encounter Summary ---
Demographics + + + | Address | [address] | | | [place] [address] | + + + | Home Phone [...] + + + | Author | [place] [employer] [facility] | + + + | Organization | [facility] [employer] [facility] | + + + | Address | Unknown | + + + | Phone | Unavailable | + + + Support + + +---------+ + | Name | Relationship | Address | Phone | + + +---------+ + | Ruby Au | ECON | Unknown | | + + +---------+ + Care Team Providers + +------+ + | Care Wrap Yarn Sorter Name | Role | Phone | [...] | | 2006 | Visit | [place] | | (Primary Dx) | | | | Neuro-Ophthalmology | | | | | | [address] [facility] | | | | | | Mailcode: PATTI | | | | | | [place] [address] | | | | | | [phone] | | | +--------+---------+ + + + [...] CASIMIRO PAYTON MD [address] [place] [address] Per [facility] chart note taken this morning by . Symptoms: Patient specific problem noted by patient: transient visual loss HPI: 31 y.o. year old female from [place] : Patient presents with: Transient visual loss [...] Brad Currie MD Neuro-Ophthalmology and Cerebrovascular Disease E Commerce Developer of Ophthalmology, Neurology, and Neurosurgery documented in [...]
--- OUTSIDE RECORDS SUMMARY | ~2020-05-03 | XMS | Encounter Summary ---
Demographics + + + | Address | [address] | | | [place] [address] | + + + | Home Phone [...] + + + | Author | [place] Abigail Stewart [employer] [facility] | + + + | Organization | [facility] [employer] [facility] [...] Providers + +------+ + | Care Edge Grinder Name | Role | Phone | [...] [address] | | | | | [facility] | [place], [place] | | | | | Health and Healing, | [address] | | | | | Building [address]th | | | | | | Floor [place], [place] | | | | | | [address] | | | | | | [phone] | | | +--------+ + + + [...]
--- OUTSIDE RECORDS SUMMARY | ~2020-05-03 | XMS | Encounter Summary ---
Demographics + + + | Address | [address] | | | [place] [address] | + + + | Home Phone [...] + + + | Author | [place] [employer] [facility] | + + + | Organization | [facility] [employer] [facility] | + [...] Providers + +------+ + | Care Business Analytics Faculty Member Name | Role | Phone [...] [address] | | | | | [facility] | [place], [place] | | | | | [place], [place] | [address] | | | | | [address] | [phone] | | | | | [phone] | | | +--------+ + + + [...]
--- OUTSIDE RECORDS SUMMARY | ~2020-05-03 | XMS | Encounter Summary ---
Demographics + + + | Address | [address] | | | [place] [address] | + + + | Home Phone [...] [facility] [...] Team Providers + +------+ + | Care Chain Dyer Name | Role | Phone | + +------+ + PCP | Unavailable | + +------+ + Encounter Details +--------+ + + + + | Date | Type | Department | Care Team | Description | +--------+ + + + + | 04/18/ | Hospital | [facility] | | | | 1991 | Encounter | MED CTR EMERGENCY | | | | | | CENTER [address] | | | | | | [place] | | | | | | [address] | | | | | | [phone] | | | +--------+ + + + [...]
--- OUTSIDE RECORDS SUMMARY | ~2020-05-03 | XMS | Encounter Summary ---
Demographics + + + | Address | [address] | | | [place] [address] | + + + | Home Phone [...] + + + | Author | [place] Azuki [employer] [facility] | + + + | Organization | [facility] [employer] [facility] | + [...] Providers + +------+ + | Care Manager Switch Name | Role | Phone | + +------+ + | Brenden Benavides MD | PCP | | + +------+ + Encounter Details +--------+ + + + + | Date | Type | Department | Care Team | Description | +--------+ + + + + | 02/21/ | Telephone | [facility] | [address] | | | 2006 | | [place] | [address] | | | | | Oculoplastics at | [facility] [place] | | | | | Maicol Perez [address] | [address] | | | | | [address] | | | | | | Eye [place] | | | | | | [facility], 5th floor | | | | | | [place] [address] | | | | | | [phone] | | | +--------+ + + + [...]
--- OUTSIDE RECORDS SUMMARY | ~2020-05-03 | XMS | Encounter Summary ---
Demographics + + + | Address | [address] | | | [place] [address] | + + + | Home Phone [...] + + + | Author | [place] [employer] [facility] | + + + | Organization | [facility] [employer] [facility] | + + + | Address | Unknown | + + + | Phone | Unavailable | + + + Support + + +---------+ + | Name | Relationship | Address | Phone | + + +---------+ + | Ruby Au | ECON | Unknown | | + + +---------+ + Care Team Providers + +------+ + | Care Facility Service Associate Name | Role | Phone [...] + + | 06/24/ | Emergency | [facility] Emergency | | | | 2010 | | Department [address] | | | | | | [address] | | | | | | [facility] | | | | | | [place], [place] | | | | | | [address] | | | | | | [phone] | | | +--------+ + + + [...]
--- OUTSIDE RECORDS SUMMARY | ~2020-05-03 | XMS | Encounter Summary ---
Demographics + + + | Address | [address] | | | [place] [address] | + + + | Home Phone [...] | Organization | [facility] | | [...] Providers + +------+ + | Care Manager Military Name | Role | Phone | + +------+ + PCP | Unavailable | + +------+ + Encounter Details +--------+ + + + + | Date | Type | Department | Care Team | Description | +--------+ + + + + | 03/29/ | Hospital | [facility] | | | | 2006 | Encounter | MED CTR XRAY [address] | | | | | [address] | | | | | | [place] [address] | | | | | | [phone] | | | +--------+ + + + [...]
--- OUTSIDE RECORDS SUMMARY | ~2020-05-03 | XMS | Encounter Summary ---
Demographics + + + | Address | [address] | | | [place] [address] | + + + | Home Phone [...] + + + | Author | [place] [facility] | + + + | Organization | [facility] [employer] [facility] | + + [...] Providers + +------+ + | Care Compliance Aide Name | Role | Phone | [...] Operative Report | | 2006 | | [facility] [facility] [address] | | | | | Transcribed | [address] | | | | | | Mailcode: Center | | | | | | for Health and | | | | | | Healing, [facility] [address] | | | | | | [place], [place] | | | | | | [address] | | | | | | [phone] | | | +--------+ + + + [...] | 02/07/2007 12:00 AM PDT | | [id number] | | [id number] [facility] [place] [id number] | | | | Date: 02/07/2007 | | | | Attending Surgeon: Hay Hughes M.D. | | | | River Pilot(s): Pascual Bermudez M.D. | | | | [...] and medial orbital | | septum. The him assistant retracted the orbital fat bag with [...] | | KYM / [place] | | [id number] / [id number] / [id number] / [id number] | | | | | | | | cc: | | | | | | Brad Currie M.D. | | [facility] | | | | | | Brenden Benavides M.D. | | [facility] | | [address] [facility] [address] | | [place] [address] | | | | | | Electronically signed by Hay Hughes 02-12-2007 05:13:05 PM | | | | | + + documented in this encounter Visit Diagnoses Not on filedocumented in this encounter"
--- OUTSIDE RECORDS SUMMARY | ~2020-05-03 | XMS | Encounter Summary ---
Demographics + + + | Address | [address] | | | [place] [address] | + + + | Home Phone [...] Organization | [facility] | | [...] Providers + +------+ + | Care Pheresis Specialist Name | Role | Phone | + +------+ + PCP | Unavailable | + +------+ + Encounter Details +--------+ + + + + | Date | Type | Department | Care Team | Description | +--------+ + + + + | 08/16/ | Hospital | [facility] | | | | 1990 | Encounter | MED CTR EMERGENCY | | | | | | CENTER [address] | | | | | | [place] | | | | | | [address] | | | | | | [phone] | | | +--------+ + + + [...]
--- OUTSIDE RECORDS SUMMARY | ~2020-05-03 | XMS | Encounter Summary ---
Demographics + + + | Address | [address] | | | [place] [address] | + + + | Home Phone [...] + + + | Author | [place] [employer] [facility] | + + + | Organization | [facility] [employer] [facility] | + + + | Address | Unknown | + + + | Phone | Unavailable | + + + Support + + +---------+ + | Name | Relationship | Address | Phone | + + +---------+ + | Ruyb Au | ECON | Unknown | | + + +---------+ + Care Team Providers + +------+ + | Care Pressurised Container Filler Name | Role | Phone | [...] | | | REFERRAL TO | | [place], [place] | | | | | NEUROINTERVE | | [address] | | | | | NTIONAL | | Phone: | | | | | RADIOLOGY | | [phone] | | | | | PRACTICE | | Fax: | | | | | | | [phone] | +--------+--------+ + + + + Reason [...] Dx) | | | | Mailcode:OP14B | [place], [place] | | | | | Outpatient Clinic | [address] | | | | | Building [place], | [phone] | | | | | [place] [address] | | | | | | [phone] | | | +--------+---------+ + + + [...] resident s note. CASIMIRO PAYTON MD NEUROSURGERY [facility] [place] [address] [address] [place] - 12:00 PM [...] spots" and "tunnel vision." Last saw an bindery cutter operator in [facility] 2 months ago. Reportedl y, this showed that her OS vision was worse - no reports available to me at this time. Was a lso admitted to the [facility] for CAPONE about a month ago. [...] Patient was also given a prescription for [place] for CAPONE until she establishs care with [...]
--- OUTSIDE RECORDS SUMMARY | ~2020-05-03 | XMS | Encounter Summary ---
Demographics + + + | Address | [address] | | | [place] [address] | + + + | Home Phone [...] + + + | Author | [place] [employer] [facility] | + + + | Organization | [facility] [employer] [facility] [...] Team Providers + +------+ + | Care Crab Butcher Name | Role | Phone | [...] | | | Ave Mailcode: CH8N | [place], [place] | | | | | [facility] | [address] | | | | | and Healing, | [phone] | | | | | [facility] | | | | | | Floor [place], [place] | | | | | | [address] | | | | | | [phone] | | | +--------+ + + + [...]
--- OUTSIDE RECORDS SUMMARY | ~2020-05-03 | XMS | Encounter Summary ---
Demographics + + + | Address | [address] | | | [place] [address] | + + + | Home Phone [...] + + + | Author | [place] [employer] [facility] | + + + | Organization | [facility] [employer] [facility] | + + [...] Providers + +------+ + | Care Information Systems Consultant Name | Role | Phone | [...] | | | Ave Mailcode: CH8N | [place], [place] | | | | | [facility] | [address] | | | | | and Healing, | [phone] | | | | | | | | | | | Floor [place], [place] | | | | | | [address] | | | | | | [phone] | | | +--------+ + + + [...]
--- OUTSIDE RECORDS SUMMARY | ~2020-05-03 | XMS | Encounter Summary ---
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
[~2020-05-03 11:48] MED LIST changes: +CARAFATE1 GM PO
[2020-05-03] MEDS ORDERED: BUPRENORPHIN-N1 EACH SL (12:01)
[2020-05-03] MEDS ORDERED: ZOLOFT50 MG PO (12:02)
== END 2020-05-03 13:44 | disposition left against medical advice (07) ==
LOC: ED 11:48
DX: R55 Syncope and collapse (principal); F11.10 Opioid abuse, uncomplicated; E11.9 Type 2 diabetes mellitus without complications; I10 Essential (primary) hypertension; J44.9 Chronic obstructive pulmonary disease, unspecified; F17.200 Nicotine dependence, unspecified, uncomplicated; Z88.5 Allergy status to narcotic agent; Z88.1 Allergy status to other antibiotic agents; Z88.8 Allergy status to other drugs, medicaments and biological substances; Z79.899 Other long term (current) drug therapy
CPT/HCPCS: 84703; 99284

== ENCOUNTER 2020-05-29 15:52 | Emergency (ER) | payer OTHER ==
[~2020-05-29] VITALS: Ht 165.1 cm; Wt 90.7 kg
--- OUTSIDE RECORDS SUMMARY | ~2020-05-29 | XMS | Encounter Summary ---
Demographics + + + | Address | [address] | | | [place] [address] | + + + | Home Phone | | + + + | Preferred Language | Unknown | + + + | Marital Status | | + + + | Denominational Affiliation | Unknown | + + + | Race | Unknown | + + + | Ethnic Group | Unknown | + + + Author + + + | Author | [facility] | | | and [place] | + + + | Organization | [facility] | | | and [place]ana [...] Team Providers + +------+ + | Care Restaurant Front Manager Name | Role | Phone | + +------+ + PCP | Unavailable | + +------+ + Encounter Details +--------+ + + + + | Date | Type | Department | Care Team | Description | +--------+ + + + + | 09/20/ | Hospital | [facility] | | | | 1991 | Encounter | [facility] | | | | | | HEALTH [address] | | | | | | [place], | | | | | | [place] [address] | | | | | | [phone] | | | +--------+ + + + [...]
--- OUTSIDE RECORDS SUMMARY | ~2020-05-29 | XMS | Encounter Summary ---
Demographics + + + | Address | [address] | | | [place] [address] | + + + | Home Phone | | + + + | Preferred Language | Unknown | + + + | Marital Status | | + + + | Anabaptist Affiliation | NON | + + + | Race | or | + + + | Ethnic Group | Not or | + + + Author + + + | Author | [place] [employer] [facility] | + + + | Organization | [facility] [employer] [facility] | + + + | Address | Unknown | + + + | Phone | Unavailable | + + + Support + + +---------+ + | Name | Relationship | Address | Phone | + + +---------+ + | Ruby Au | ECON | Unknown | | + + +---------+ + Care Team Providers + +------+ + | Care Rad Technologist Name | Role | Phone | + [...] | +--------+ + + + + | 05/01/ | Telephone | Neurosurgery at | Sam Pedroza MD | Other | | 2007 | | [facility] [address] | [address] | | | | | Ave Mailcode: CH8N | [place], [place] | | | | | [facility] | [address] | | | | | and Healing, | [phone] | | | | | [facility] | | | | | | Floor [place], [place] | | | | | | [address] | | | | | | [phone] | | | +--------+ + + + [...]
--- OUTSIDE RECORDS SUMMARY | ~2020-05-29 | XMS | Encounter Summary ---
Demographics + + + | Address | [address] | | | [place] [address] | + + + | Home Phone | | + + + | Preferred Language | Unknown | + + + | Marital Status | | + + + | Amish Affiliation | NON | + + + | Race | or | + + + | Ethnic Group | Not or | + + + Author + + + | Author | [place] [employer] [facility] | + + + | Organization | [facility] | + + + | Address | Unknown | + + + | Phone | Unavailable | + + + Support + + +---------+ + | Name | Relationship | Address | Phone | + + +---------+ + | Ruby Au | ECON | Unknown | | + + +---------+ + Care Team Providers + +------+ + | Care Meter Setter Name | Role | Phone | + +------+ + PCP | Unavailable | + +------+ + Encounter Details +--------+ + + + + | Date | Type | Department | Care Team | Description | +--------+ + + + + | 06/25/ | Telephone | Neurosurgery at | Steph Reyes MD | | | 2010 | | [facility] [address] | | | | | | [place] Mailcode: CH8N | | | | | | [facility] | | | | | | and Healing, | | | | | | Building [address], | | | | | | Floor [place], [place] | | | | | | [address] | | | | | | [phone] | | | +--------+ + + + [...]
--- OUTSIDE RECORDS SUMMARY | ~2020-05-29 | XMS | Encounter Summary ---
Demographics + + + | Address | [address] | | | [place] [address] | + + + | Home Phone | | + + + | Preferred Language | Unknown | + + + | Marital Status | | + + + | Religion Affiliation | NON | + + + | Race | or | + + + | Ethnic Group | Not or | + + + Author + + + | Author | [place] [facility] [facility] | + + + | Organization | [facility] | + + + | Address | Unknown | + + + | Phone | Unavailable | + + + Support + + +---------+ + | Name | Relationship | Address | Phone | + + +---------+ + | Ruby Au | ECON | Unknown | | + + +---------+ + Care Team Providers + +------+ + | Care Diagrammer Name | Role | Phone | + +------+ + | Yeison Simms MD | PCP | Unavailable | + +------+ + Reason for Visit + + + | Reason | Comments | + + + | Letter Encounter | | + + + Encounter Details +--------+ + + + + | Date | Type | Department | Care Team | Description | +--------+ + + + + | 01/22/ | Telephone | Neurosurgery at | Sam Pedroza MD | Letter Encounter | | 2008 | | [facility] | [address] | | | | | and Healing [address] | [place], [place] | | | | | [address] Mail[address]: | [address] | | | | | [address] [facility] | [phone] | | | | | Health and Healing, | | | | | | Building 1, | | | | | | Floor [place], [place] | | | | | | [address] | | | | | | [phone] | | | +--------+ + + + [...]
--- OUTSIDE RECORDS SUMMARY | ~2020-05-29 | XMS | Encounter Summary ---
Demographics + + + | Address | [address] | | | [place] [address] | + + + | Home Phone [...] + + + | Author | [place] [employer] [facility] | + + + | Organization | [facility] | + + + | Address | Unknown | + + + | Phone | Unavailable | + + + Support + + +---------+ + | Name | Relationship | Address | Phone | + + +---------+ + | Ruby Au | ECON | Unknown | | + + +---------+ + Care Team Providers + +------+ + | Care Media Senior Recruiter Name | Role | Phone | + +------+ + | Yeison Simms MD | PCP | Unavailable | + +------+ + Reason for Visit +--------+ + | Reason | Comments | +--------+ + | Other | pain at incision site | +--------+ + Encounter Details +--------+ + + + + | Date | Type | Department | Care Team | Description | +--------+ + + + + | 05/14/ | Telephone | Neurosurgery at | Sam Pedroza MD | Other (pain at | | 2008 | | [facility] [address] | [address] | incision site) | | | | Ave Mailcode: CH8N | [place], [place] | | | | | [facility] | [address] | | | | | and Healing, | [phone] | | | | | [facility] | | | | | | Floor [facility] [place] | | | | | | [address] | | | | | | [phone] | | | +--------+ + + + [...]
--- OUTSIDE RECORDS SUMMARY | ~2020-05-29 | XMS | Encounter Summary ---
Demographics + + + | Address | [address] | | | [place] [address] | + + + | Home Phone | | + + + | Preferred Language | Unknown | + + + | Marital Status | | + + + | Jain Affiliation | NON | + + + | Race | or | + + + | Ethnic Group | Not or | + + + Author + + + | Author | [place] [employer] [facility] | + + + | Organization | [facility] [employer] [facility] | + + + | Address | Unknown | + + + | Phone | Unavailable | + + + Support + + +---------+ + | Name | Relationship | Address | Phone | + + +---------+ + | Ruby Au | ECON | Unknown | | + + +---------+ + Care Team Providers + +------+ + | Care Professor Of Legal Studies Name | Role | Phone | + +------+ + | Yeison Simms MD | PCP | Unavailable | + +------+ + Reason for Visit + + + | Reason | Comments | + + + | Treatment Question | | + + + Encounter Details +--------+ + + + + | Date | Type | Department | Care Team | Description | +--------+ + + + + | 03/03/ | Telephone | Neurosurgery at | Eladio Pang MD | Treatment Question | | 2010 | | [facility] [address] | [address] | | | | | Ave Mailcode: CH8N | [place], [place] | | | | | [facility] | [address] | | | | | and Healing, | [phone] | | | | | [facility] | | | | | | Floor [place], [place] | | | | | | [address] | | | | | | [phone] | | | +--------+ + + + [...]
--- OUTSIDE RECORDS SUMMARY | ~2020-05-29 | XMS | Encounter Summary ---
Demographics + + + | Address | [address] | | | [place] [address] | + + + | Home Phone [...] + + + | Author | [place] [employer] [facility] | + + + | Organization | [facility] [employer] [facility] | + + + | Address | Unknown | + + + | Phone | Unavailable | + + + Support + + +---------+ + | Name | Relationship | Address | Phone | + + +---------+ + | Ruby Au | ECON | Unknown | | + + +---------+ + Care Team Providers + +------+ + | Care Regional Agronomist Name | Role | Phone | + [...] + + | 08/24/ | Emergency | [facility] Emergency | Tylor Mcclellan, | | | 2010 | | Department [address] | [address] | | | | | [address] | MD Joey [address] | | | | | [facility] | [facility] | | | | | [place], [place] | [place], [place] | | | | | [address] | [address] | | | | | [phone] | [phone] | | | | | | | [...] us take care of you at [facility] today. Follow up with primary care physician [...] | | + +---------+ + + | [facility] DEPARTMENT OF | | | | | [...]
--- OUTSIDE RECORDS SUMMARY | ~2020-05-29 | XMS | Encounter Summary ---
Demographics + + + | Address | [address] | | | [place] [address] | + + + | Home Phone | | + + + | Preferred Language | Unknown | + + + | Marital Status | | + + + | Lutheran Affiliation | Unknown | + + + | Race | Unknown | + + + | Ethnic Group | Unknown | + + + Author + + + | Author | [facility] | | | and [place] | + + + | Organization | [facility] | | | and [place] [...] Team Providers + +------+ + | Care Pleating Supervisor Name | Role | Phone | + +------+ + PCP | Unavailable | + +------+ + Encounter Details +--------+ + + + + | Date | Type | Department | Care Team | Description | +--------+ + + + + | 04/18/ | Hospital | [facility] | | | | 1991 | Encounter | MED CTR EMERGENCY | | | | | | CENTER [address] | | | | | | [place] | | | | | | [address] | | | | | | [phone] | | | +--------+ + + + [...]
--- OUTSIDE RECORDS SUMMARY | ~2020-05-29 | XMS | Encounter Summary ---
Demographics + + + | Address | [address] | | | [place] [address] | + + + | Home Phone | | + + + | Preferred Language | Unknown | + + + | Marital Status | | + + + | Restoration Affiliation | NON | + + + | Race | or | + + + | Ethnic Group | Not or | + + + Author + + + | Author | [place] [employer] [facility] | + + + | Organization | [facility] | + + + | Address | Unknown | + + + | Phone | Unavailable | + + + Support + + +---------+ + | Name | Relationship | Address | Phone | + + +---------+ + | Ruby Au | ECON | Unknown | | + + +---------+ + Care Team Providers + +------+ + | Care Process Improvement Specialist Name | Role | Phone | + +------+ + | Yeison Simms MD | PCP | Unavailable | + +------+ + Reason for Visit + + + | Reason | Comments | + + + | CAP[facility] - Headache | questions about CAPONE | + + + Encounter Details +--------+ [...] about [facility]) | | | | Ave Mailcode: CH8N | [place], [place] | | | | | [facility] | [address] | | | | | and Healing, | [phone] | | | | | | | | | | | Floor [place], [place] | | | | | | [address] | | | | | | [phone] | | | +--------+ + + + [...]
--- OUTSIDE RECORDS SUMMARY | ~2020-05-29 | XMS | Encounter Summary ---
Demographics + + + | Address | [address] | | | [place] [address] | + + + | Home Phone | | + + + | Preferred Language | Unknown | + + + | Marital Status | | + + + | Jewish Affiliation | NON | + + + | Race | or | + + + | Ethnic Group | Not or | + + + Author + + + | Author | [place] [employer] [facility] | + + + | Organization | [facility] [employer] [facility] | + + + | Address | Unknown | + + + | Phone | Unavailable | + + + Support + + +---------+ + | Name | Relationship | Address | Phone | + + +---------+ + | Ruby Au | ECON | Unknown | | + + +---------+ + Care Team Providers + +------+ + | Care Effervescent Salts Compounder Name | Role | Phone | + [...] Neurosurgery [address] | | | | | [address] Mail[address]: | [address] | | | | | [address] [facility] | [place], [place] | | | | | Health and Healing, | [address] | | | | | Building [address] | | | | | | Floor [place], [place] | | | | | | [address] | | | | | | [phone] | | | +--------+ + + + [...]
--- OUTSIDE RECORDS SUMMARY | ~2020-05-29 | XMS | Encounter Summary ---
Demographics + + + | Address | [address] | | | [place] [address] | + + + | Home Phone [...] + + + | Author | [place] [employer] [facility] | + + + | Organization | [facility] [employer] [facility] | + + + | Address | Unknown | + + + | Phone | Unavailable | + + + Support + + +---------+ + | Name | Relationship | Address | Phone | + + +---------+ + | Ruby Au | ECON | Unknown | | + + +---------+ + Care Team Providers + +------+ + | Care Certified Medication Technician Name | Role | Phone | + +------+ + | Pedro Luis Sams MD | PCP | | + +------+ + Reason for Visit + + + | Reason | Comments | + + + | Follow-up in | | | outpatient clinic | | + + + Consultation (Routine) +--------+ + + + + + | Status | Reason | Specialty | Diagnoses / | Referred By | Referred To | | | | | Procedures | Contact | Contact | +--------+ + + + + + | Closed | Specialty | Neurological | | Latrell, | Kasia, | | | Services | Surgery | | Pedro Luis Stanley, | MD Casimiro | | | Required | | | MD [address] | | | | | | [address] | [address] | | | | | | [address] | [place], [place] | | | | | | [place], | [address] | | | | | | [place] [address] | Phone: | | | | | | Phone: | [phone] | | | | | | [phone] | Fax: | | | | | | Fax: | [phone] | | | | | | [phone] | | +--------+ + + + + + Encounter Details +--------+---------+ + + + | Date | Type | Department | Care Team | Description | +--------+---------+ + + + | 09/17/ | Office | Neurosurgery at | Casimiro Payton MD | Pseudotumor cerebri | | 2010 | Visit | [facility] [address] | [address] | (Primary Dx) | | | | Ave Mailcode: CH8N | [place], [place] | | | | | [facility] | [address] | | | | | and Healing, | [phone] | | | | | [facility] | | | | | | Floor [place], [place] | | | | | | [address] | | | | | | [phone] | | | +--------+---------+ + + + [...] + + + | Blood Pressure | 98/71 | 09/17/2011 11:02 AM | | | | | PDT | | + + + + + | Pulse | 98 | 09/17/2011 11:02 AM | | | | | PDT | | + + + + + | Temperature | 37.1 C (98.8 F) | 09/17/2011 11:02 AM | | | | | PDT | | + + + + + | Respiratory Rate | 14 | 09/17/2011 11:02 AM | | | | | PDT | | + + + + + | Oxygen Saturation | - | - | | + + + + + | Inhaled Oxygen | - | - | | | Concentration | | | | + + + + + | Weight | 120.2 kg (265 lb) | 09/17/2011 11:02 AM | | | | | PDT | | + + + + + | Height | 165.1 cm (5' 5") | 09/17/2011 11:02 AM | | | | | PDT | | + + + + + | Body Mass Index | 44.1 | 09/17/2011 11:02 AM | | | | | PDT | | + + + + + documented in this encounter Progress Notes Adarsh Shukla MD - 09/17/2011 11:55 AM PDT36 y.o.f with hx of pseudotumor cerebri who is s/p LP S placement by Dr. Payton in 2007 presented to the ED this Sept for increasing headache and w as found to have nonfunctioning LPS (the proximal catheter is no longer in the thecal sac) a nd she was evaluated with ophthal in the ED and was found to have chronic papilledema. She i s here for discussion of her symptoms and treatment options. She states that her vision is stable and ophthal wants to try higher dose of diamox. She states her headache is stable, 3 /10 right now but can get worse depending time of the day. 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 Her insurance denied the s tenting procedure. On exam, She is AAOx3, PERRLA, EOMI, face sym, TML. VFF. Ana with good strength throughout Sensation grossly intact A/P 36 y.o.f with pseudotumor with nonfunctioning LPS. We discuss with patient her symptom s, diagnosis and treatment options. We offer her to remove the LPS and patient will think a bout it . She will give a higher dose of diamox a try. If she doesn't improve, we will cont act the insurance company again see whether we will get approval for stent placement. I saw and evaluated the patient and discussed the diagnosis and management of the patient w ith the resident. See also the resident's note from today's visit. I agree with the document ation findings and plan of care. She has been doing great since the LP shunt placement un til recently when she starts to howell ve headache and nausea again. Her last ophthalmology exam showed chronic papiledema and her LP shunt is not working. I told her that if she wants we can remove the shunt but apparently it is not casuing any problems now. She wants to try diamox therapy and if that does not wo tk we will try to get approval for stent placement into the transverse venous sinus. She manasa l call us soon. I spent more than 15 minutes [id number] with the patient of which greater than 50% was sp ent counseling the patient regarding the shunt removal, indications and venous sinus stent a ngioplasty. Since her shunt is brent effective now she will need narcotics for headache and he r PCP should manage that. CASIMIRO PAYTON MD NEUROSURGERY [address] Mailcode: Ch8n [facility], [address] [facility] [address] documented in this encou nter Plan of Treatment Not on filedocumented as of this encounter Visit Diagnoses + + | Diagnosis | + + | Pseudotumor cerebri - Primary Benign intracranial hypertension | + + documented in this encounter
--- OUTSIDE RECORDS SUMMARY | ~2020-05-29 | XMS | Encounter Summary ---
Demographics + + + | Address | [address] | | | [place] [address] | + + + | Home Phone | | + + + | Preferred Language | Unknown | + + + | Marital Status | | + + + | Gnosticist Affiliation | Unknown | + + + | Race | Unknown | + + + | Ethnic Group | Unknown | + + + Author + + + | Author | [facility] | | | and [place] | + + + | Organization | [facility] | [...] Team Providers + +------+ + | Care Dredge Pipe Operator Name | Role | Phone | + +------+ + PCP | Unavailable | + +------+ + Encounter Details +--------+ + + + + | Date | Type | Department | Care Team | Description | +--------+ + + + + | 11/04/ | Hospital | [facility] | Unknown, | | | 2004 | Encounter | MED CTR XRAY [address] | MD [address] . | | | | | [place] | | | | | | [place] [address] | (Fax) | | | | | [phone] | | | +--------+ + + + [...]
--- OUTSIDE RECORDS SUMMARY | ~2020-05-29 | XMS | Encounter Summary ---
Demographics + + + | Address | [address] | | | [place] [address] | + + + | Home Phone [...] + + + | Author | [place] [employer] [facility] | + + + | Organization | [facility] [place] [employer] [facility] | + + + | Address | Unknown | + + + | Phone | Unavailable | + + + Support + + +---------+ + | Name | Relationship | Address | Phone | + + +---------+ + | Ruby Au | ECON | Unknown | | + + +---------+ + Care Team Providers + +------+ + | Care Re Examiner Name | Role | Phone | + +------+ + | Brenden Aquino MD | PCP | | + +------+ + Reason for Visit + + + | Reason | Comments | + + + | Transient visual | | | loss | | + + + Encounter Details +--------+---------+ + + + | Date | Type | Department | Care Team | Description | +--------+---------+ + + + | 03/27/ | Office | [facility] | Wade Jensen MD | Pseudotumor Cerebri; | | 2006 | Visit | [place]/Ophthalmol | | Papilledema | | | | ogy at [facility] [address] | | Associated with | | | [address] Mailcode: | | Increased | | | | CH[facility] for | | Intracranial | | | | Health and Healing, | | Pressure; Transient | | | | Building | | Visual Loss | | | | Floor [place], [place] | | | | | | [address] | | | | | | [phone] | | | +--------+---------+ + + + [...] documented as of this encounter Progress Notes Muna Kunz Md - 04/13/2007 9:11 AM PDTAttending Physician Statement: I reviewed chart notes under general supervision of resident, but did not personally examine this patient. Cosigning only. Shiva LassiterD ade Kumar Md - 03/27/2007 10:45 AM PDTFormatting of this note might be different from the o lalito. COMPREHENSIVE OPHTHALMOLOGY PROGRESS NOTE 03/27/2007 specific problem noted by pt: transient visual loss HPI: 31 y.o. year old female from [place] : Patient presents with: Transient visual loss Patient was first diagnosed with pseudotumor cerebri 1 year ago and had a shunt placed then removed 1 month later. Patient was put on diamox, but had persistent papilledema and visua l field loss and underwent an optic nerve sheath fenestration 7 weeks ago. Patient has not returned for follow up except for post-op by plastics. Patient reports that within days of surgery she has had transient "black outs" OS lasting 15-20 seconds; these occur 2-3 x per w [place]. Hobbies: Tobacco use: reports that she has been using cigarettes. She has a 15 pack-year smoking h istory. Primary Care Provider: BRENDEN AQUINO MD Past ocular history: Psuedotumor cerebri dx 01/31 ONSFenestration 02/01 Family ocular history: family history is not on file. Allergies: is allergic to codeine and cephalexin. Medications: Current outpatient prescriptions : OXYCONTIN OR, None Entered, Disp: , Rfl: ALBUTEROL IN, inhaler used to treat bronchitis, Disp: , Rfl: DIAMOX OR, 1000 mg bid, Disp: , Rfl: Medical history/PMH/Review of systems: Patient Active Problem List Diagnoses Code Pseudotumor Cerebri 348.2AD Bronchitis 490G Past Medical History Diagnosis Date PSEUDOTUMOR CEREBRI JOINT PAIN past surgical histories include lumboperitoneal shunt (04/28/06), pr full rout obste care,mia arean deliv, hx carpal tunnel release, hx tonsillectomy, hx appendectomy, and pr decompress optic nerve (02/07/07). Reviewed systems for: fever, wt. loss, ENT, cardiovascular, pulmonary, GI, urinary, neurolo gic, endocrine, bleeding/blood disorders, AIDS/HIV, cancer/tumors, arthritis - all were nega tive except as noted above. EXAMINATION: Visual acuity SC Right eye 20/20 Left eye 20/30 PH 20/30+2 Type: / Comments: / Comments: / Other IOP Pupils: 6--4, 5--3 no apd Right eye 14 EOM: Full OU, ortho OU Left eye 14 CVF: Ftc OD, OS possible infernasal field defect IOP Method: Applanation Dilation: Dilated with T/P OU Mental status: Alert, oriented OD OS Notes: Orbit Lacrimal Lids Conj Cornea AC Iris Lens X X X X X X X X X X X X X X X X Vitreous Disc seun C/D Macula Vessels Periphery X X 0.1 X X X X X 0.1 X X X 3+ optic nerve head swelling/elevation without obscuration of vessels or hyperemia x = normal. o = not examined. Conjunctiva includes palpebral and bulbar unless noted. Cor anne includes epithelium, stroma, endo. unless noted. Lens includes ant. and post. capsule, cortex and nucleus unless noted. IMP: Psuedotumor cerebri with persistent transient visual obscurations OS and optic nerve head s welling OU despite ONSF 1 month ago and diamox 500mg PO BID. PLAN: Continue diamox 500 mg PO BID, may need higher dose. Dose adjustments per Dr. Currie today. Appointment with neuro-ophthalmology today, patient to continue follow-up for psuedotumor w [facility] neuro-ophth. Follow up at [facility] prn new symptoms or complaints. WADE Jensen MD, 03/27/2007 documented in this enco unter Plan of Treatment Not on filedocumented as of this encounter Visit Diagnoses + + | Diagnosis | + + | Pseudotumor cerebri Benign intracranial hypertension | + + | Papilledema associated with increased intracranial pressure | + + | Transient visual loss | + + documented in this encounter
--- OUTSIDE RECORDS SUMMARY | ~2020-05-29 | XMS | Encounter Summary ---
Demographics + + + | Address | [address] | | | [place] [address] | + + + | Home Phone [...] + + + | Author | [place] [employer] [facility] | + + + | Organization | [facility] [employer] [facility] | + + + | Address | Unknown | + + + | Phone | Unavailable | + + + Support + + +---------+ + | Name | Relationship | Address | Phone | + + +---------+ + | Ruby Au | ECON | Unknown | | + + +---------+ + Care Team Providers + +------+ + | Care Functional Analyst Name | Role | Phone | + +------+ + | Pedro Luis Sams MD | PCP | | + +------+ + Encounter Details +--------+ + + + + | Date | Type | Department | Care Team | Description | +--------+ + + + + | 08/31/ | Telephone | [facility] | Leticia Pitts MD | | | 2010 | | [place]/Ophthalmol | | | | | | [facility] at [facility] [address] | | | | | | [address] Mailcode: | | | | | | CH11[facility] | | | | | | Health and Healing, | | | | | | [facility] | | | | | | Floor [place], [place] | | | | | | [address] | | | | | | [phone] | | | +--------+ + + + [...]
--- OUTSIDE RECORDS SUMMARY | ~2020-05-29 | XMS | Encounter Summary ---
Demographics + + + | Address | [address] | | | [place] [address] | + + + | Home Phone | | + + + | Preferred Language | Unknown | + + + | Marital Status | | + + + | Jehovah'S Witness Affiliation | NON | + + + | Race | or | + + + | Ethnic Group | Not or | + + + Author + + + | Author | [place] [employer] [facility] | + + + | Organization | [facility] [employer] [facility] [...] Providers + +------+ + | Care Community Engagement Specialist Name | Role | Phone | [...] Operative Report | | 2006 | | [place] [facility] [address] | | | | | Transcribed | [address] | | | | | | Mailcode: Center | | | | | | for Health and | | | | | | Healing, [facility] [address] | | | | | | [place], [place] | | | | | | [address] | | | | | | [phone] | | | +--------+ + + + [...] | 02/07/2007 12:00 AM PDT | | [id number] | | [id number] PAT Waters [id number] | | | | Date: 02/07/2007 | | | | Attending Surgeon: Hay Hughes M.D. | | | | Ditcher Operator(s): Pascual Bermudez M.D. | | | | [...] and medial orbital | | septum. The tourist information assistant retracted the orbital fat bag with [...] | | KYM / LANETTE | | [id number] / [id number] / [id number] / [id number] | | | | | | | | cc: | | | | | | Brad Currie M.D. | | [facility] | | | | | | Brenden Benavides M.D. | | [facility] | | [address] [facility] [address] | | [place] [address] | | | | | | Electronically signed by Hay Hughes 02-12-2007 05:13:05 PM | | | | | + + documented in this encounter Visit Diagnoses Not on filedocumented in this encounter"
--- OUTSIDE RECORDS SUMMARY | ~2020-05-29 | XMS | Encounter Summary ---
Demographics + + + | Address | [address] | | | [place] [address] | + + + | Home Phone [...] + + + | Author | [place] [employer] [facility] | + + + | Organization | [facility] [employer] [facility] | + + + | Address | Unknown | + + + | Phone | Unavailable | + + + Support + + +---------+ + | Name | Relationship | Address | Phone | + + +---------+ + | Ruby Au | ECON | Unknown | | + + +---------+ + Care Team Providers + +------+ + | Care Deputy Clerk Of Superior Court Name | Role | Phone | + [...] Cerebri; | | 2006 | Visit | [place] | Cassi Clark | Pain in or Around | | | | Oculoplastics at | [place], [place] | Eye | | | | [address] | [address] | | | | | [address] | [phone] | | | | | Eye [place] | | | | | | [facility] floor | | | | | | [place] [address] | | | | | | [phone] | | | +--------+---------+ + + + [...] to be seen here or by an industrial relations specialist in [facility], but she says she does not have transportation. I will call in Vicodin #20, pt to call i mmediately if there is any worsening. Pt states lucho lump in left latter day is gone. No pain. Pt. Had cough [...]
--- OUTSIDE RECORDS SUMMARY | ~2020-05-29 | XMS | Encounter Summary ---
Demographics + + + | Address | [address] | | | [place] [address] | + + + | Home Phone [...] + + | Author | [place] [employer] [facility] | + + + | Organization | [facility] [employer] [facility] | + + + | Address | Unknown | + + + | Phone | Unavailable | + + + Support + + +---------+ + | Name | Relationship | Address | Phone | + + +---------+ + | Ruby Au | ECON | Unknown | | + + +---------+ + Care Team Providers + +------+ + | Care Supervisor Belt And Link Assembly Name | Role | Phone | + [...] | | [place] Mailcode:OP14B | [place], | | | | | [facility] | [place] [address] | | | | | [place], [place] | | | | | | [address] | | | | | | [phone] | | | +--------+ + + + [...]
--- OUTSIDE RECORDS SUMMARY | ~2020-05-29 | XMS | Encounter Summary ---
Demographics + + + | Address | [address] | | | [place] [address] | + + + | Home Phone | | + + + | Preferred Language | Unknown | + + + | Marital Status | | + + + | Yarsanism Affiliation | NON | + + + | Race | or | + + + | Ethnic Group | Not or | + + + Author + + + | Author | [place] [employer] [facility] | + + + | Organization | [facility] [employer] [facility] | + + + | Address | Unknown | + + + | Phone | Unavailable | + + + Support + + +---------+ + | Name | Relationship | Address | Phone | + + +---------+ + | Ruby Au | ECON | Unknown | | + + +---------+ + Care Team Providers + +------+ + | Care Residence Director Name | Role | Phone | + +------+ + | Brenden Benavides MD | PCP | | + +------+ + Reason for Visit + + + | Reason | Comments | + + + | Vision disorder | | + + + Encounter Details +--------+---------+ + + + | Date | Type | Department | Care Team | Description | +--------+---------+ + + + | 10/13/ | Office | [facility] | Brad Currie MD | Pseudotumor Cerebri | | 2005 | Visit | [place] | | (Primary Dx) | | | | Neuro-Ophthalmology | | | | | | [address] [facility] | | | | | | Mailcode: PATTI | | | | | | [place] [address] | | | | | | [phone] | | | +--------+---------+ + + + [...] this encounter Progress Notes Brad Currie - 10/13/2006 10:32 AM PSTFormatting of this note might be different from the o lalito. Neuro-Ophthalmology Return Patient Evaluation 10/13/2006 Referred by: No referring provider defined for this encounter. Symptoms: She says that her vision is very bad at times. She says that her vision will di sappear when she stands up. She can see nothing out of the left eye and this lasts about 15 seconds. This occurs about 6-12 times a day. it never affects the right eye. She continu es to have headaches and they are at the top of her head. She had to go to the hospital 2 d ays ago. She was seen recently by an eye doctor and she was told that she had swelling in t he back of her eye. Current outpatient prescriptions: IBUPROFEN 800 MG TAB 1 am and 1 nite Allergies: Codeine, Cephalexin Review of Systems: Cardiac: negative Pulmonary: negative GI: negative : negative Musculoskeletal: negative Psych/Neuro: negative General Appearance: Healthy, no apparent distress. Visual Acuity: Vasc Vacc VAph RE 20/20 20/- 20/- LE 20/20-1 20/- 20/- Color Vision: RE AOHRR -/10 Ishihara 8/8 LE AOHRR -/10 Ishihara 7.5/8 Lids: Normal EOM's: Fixation: normal Saccades: normal Pursuit: normal Convergence: normal Nystagmus: none Strabimus: no Pupils: RE LE Sluggish: no no RAPD: no no, but there is less brisk contraction OS then OD Dilation Lag: no no Size (mm) Dark: Size (mm) Light: Confrontational VF: normal Visual Neglect: none GOLDMANN PERIMETRY FIRST EYE TESTED: Right Examiner: Kush Add OD: Add OS: FINDINGS: Static and kinetic perimetry was performed using 3 isopters OU. Fixation was exc ellent. Cooperation was good. Foveal threshold was I1e OD and I2e OS. There was enlarged blind spots OU in the vertical direction only. She also has some mild visual field constric tion OS that appears to be more inferonasal and suggestive of possible optic nerve dysfuncti on. Alert and Oriented x 3: yes Verbal Memory: grossly normal Speech normal?: yes Face normal?: Yes Fundi: Dilated Funduscopy revealed mild edema of both optic nerves. Impression: 1) Retinal vessel tortuosity 2) Pseudotumor cerebri, active Plan: She has active papilledema today. I see so many patients billed as PTC and I take t hem off of their Diamox and they never develop swelling and actually just have a headache di sorder that I always make patients have a trial off of drug if they come ON drug the first t corinna that I see them. Ms. Au is a minority that she actually developed swelling in the back of her eyes when the Diamox was withdrawn. I am restarting Diamox 500 mg bid and she will call me next week with an update of side effects of the medication that she SHOULD be h avilalita. Brad Currie MD Neuro-Ophthalmology and Cerebrovascular Disease Combat Systems Operator of Ophthalmology, Neurology, and Neurosurgery documented in this encounter Plan of Treatment + + +--------+ + + | Name | Type | Priori | Associated Diagnoses | Order Schedule | | | | ty | | | + + +--------+ + + | [place] VISUAL FIELD | Procedures | Routin | Pseudotumor | Ordered: 10/13/2006 | | EXAM,EXTENDED | | e | Cerebri | | + + +--------+ + + documented as of this encounter Visit Diagnoses + + | Diagnosis | + + | Pseudotumor cerebri - Primary Benign intracranial hypertension | + + documented in this encounter"
--- OUTSIDE RECORDS SUMMARY | ~2020-05-29 | XMS | Encounter Summary ---
Demographics + + + | Address | [address] | | | [place] [address] | + + + | Home Phone [...] + + + | Author | [place] [employer] [facility] | + + + | Organization | [facility] | + + + | Address | Unknown | + + + | Phone | Unavailable | + + + Support + + +---------+ + | Name | Relationship | Address | Phone | + + +---------+ + | Ruby Au | ECON | Unknown | | + + +---------+ + Care Team Providers + +------+ + | Care Diversified Crops Farmer Name | Role | Phone | + [...] | Headache | | 2005 | | [facility]/Ophthalmol | MD Jordin | | | | | leon at [facility] [address] | | | | | | [address] [place] Mailcode: | | | | | | [address] [facility] | | | | | | Health and Healing, | | | | | | Building | | | | | | Floor [place], [place] | | | | | | [address] | | | | | | [phone] | | | +--------+ + + + [...]
--- OUTSIDE RECORDS SUMMARY | ~2020-05-29 | XMS | Encounter Summary ---
Demographics + + + | Address | [address] | | | [place] [address] | + + + | Home Phone | | + + + | Preferred Language | Unknown | + + + | Marital Status | | + + + | Zoroastrian Affiliation | NON | + + + | Race | or | + + + | Ethnic Group | Not or | + + + Author + + + | Author | [place] [employer] [facility] | + + + | Organization | [facility] [employer] [employer] [facility] | + + + | Address | Unknown | + + + | Phone | Unavailable | + + + Support + + +---------+ + | Name | Relationship | Address | Phone | + + +---------+ + | Ruby Au | ECON | Unknown | | + + +---------+ + Care Team Providers + +------+ + | Care Medicinal Chemist Name | Role | Phone | + [...] | | | | | hypertension | [place], [place] | [place], [place] | | | | | Procedures | [address] | [address] | | | | | REQUEST TO | Phone: | Phone: | | | | | SURGERY | [phone] | [phone] | | | | | SHIPS OR BARGES LOADER | Fax: | Fax: | | | | | [place] INSTALL | [phone] | [phone] | | | | | SPINAL | [...] | 2007 | | [facility] [address] | [address] | | | | | Ave Mailcode: CH8N | [place], [place] | | | | | [facility] | [address] | | | | | and [place], | [phone] | | | | | [facility] | | | | | | Floor [place], [place] | | | | | | [address] | | | | | | [phone] | | | +--------+ + + + [...]
--- OUTSIDE RECORDS SUMMARY | ~2020-05-29 | XMS | Encounter Summary ---
Demographics + + + | Address | [address] | | | [place] [address] | + + + | Home Phone | | + + + | Preferred Language | Unknown | + + + | Marital Status | | + + + | Shinto Affiliation | NON | + + + | Race | or | + + + | Ethnic Group | Not or | + + + Author + + + | Author | [place] [facility] [facility] | + + + | Organization | [facility] [facility] | + + + | Address | Unknown | + + + | Phone | Unavailable | + + + Support + + +---------+ + | Name | Relationship | Address | Phone | + + +---------+ + | Ruby Au | ECON | Unknown | | + + +---------+ + Care Team Providers + +------+ + | Care Microbiology Quality Control Technician Name | Role | Phone | + +------+ + PCP | Unavailable | + +------+ + Encounter Details +--------+ + + + + | Date | Type | Department | Care Team | Description | +--------+ + + + + | 08/23/ | Telephone | Neurosurgery at | Sam Pedroza MD | | | 2010 | | [facility] [address] | [address] | | | | | Ave Mailcode: CH8N | [place], [place] | | | | | [facility] | [address] | | | | | and Healing, | [phone] | | | | | [facility] | | | | | | Floor [place], [place] | | | | | | [address] | | | | | | [phone] | | | +--------+ + + + [...]
--- OUTSIDE RECORDS SUMMARY | ~2020-05-29 | XMS | Encounter Summary ---
Demographics + + + | Address | [address] | | | [place] [address] | + + + | Home Phone | | + + + | Preferred Language | Unknown | + + + | Marital Status | | + + + | Pentecostalism Affiliation | NON | + + + | Race | or | + + + | Ethnic Group | Not or | + + + Author + + + | Author | [place] [employer] [facility] | + + + | Organization | [facility] [employer] [facility] | + + + | Address | Unknown | + + + | Phone | Unavailable | + + + Support + + +---------+ + | Name | Relationship | Address | Phone | + + +---------+ + | Ruby Au | ECON | Unknown | | + + +---------+ + Care Team Providers + +------+ + | Care Broth Mixer Name | Role | Phone | [...] | | [place] Mailcode:OP14B | [place], | | | | | [address] [address] | [place] [address] | | | | | [place], [place] | | | | | | [address] | | | | | | [phone] | | | +--------+ + + + [...]
--- OUTSIDE RECORDS SUMMARY | ~2020-05-29 | XMS | Encounter Summary ---
Demographics + + + | Address | [address] | | | [place] [address] | + + + | Home Phone | | + + + | Preferred Language | Unknown | + + + | Marital Status | | + + + | Church Affiliation | NON | + + + | Race | or | + + + | Ethnic Group | Not or | + + + Author + + + | Author | [place] [employer] [facility] | + + + | Organization | [facility] [employer] [facility] | + + + | Address | Unknown | + + + | Phone | Unavailable | + + + Support + + +---------+ + | Name | Relationship | Address | Phone | + + +---------+ + | Ruby Au | ECON | Unknown | | + + +---------+ + Care Team Providers + +------+ + | Care Sanitizer Name | Role | Phone | + [...] Description | +--------+--------+ + + + | 08/28/ | Refill | Neurosurgery at | Silas Kiki Bud, | Refill Request | | 2007 | | [facility] | [place] | | | | | and Healing [address] | Neurosurgery [address] | | | | | [address] Mailcode: | [address] | | | | | [facility] | [place], [place] | | | | | Health and Healing, | [address] | | | | | Building | | | | | | Floor [place], [place] | | | | | | [address] | | | | | | [phone] | | | +--------+--------+ + + + [...]
--- OUTSIDE RECORDS SUMMARY | ~2020-05-29 | XMS | Encounter Summary ---
Demographics + + + | Address | [address] | | | [place] [address] | + + + | Home Phone [...] + + + | Author | [place] [employer] [facility] | + + + | Organization | [facility] [...] Team Providers + +------+ + | Care Visual Design Lead Name | Role | Phone | [...] Telephone follow-up | | 2015 | | [place] | [address] | | | | | Neuro-Ophthalmology | [place], [place] | | | | | at [facility] [address] | [address] | | | | | Ave Mailcode: [facility] | [phone] | | | | | [facility] | | | | | | and [place], | | | | | | | | | | | | Floor [place], [place] | | | | | | [address] | | | | | | [phone] | | | +--------+ + + + [...]
--- OUTSIDE RECORDS SUMMARY | ~2020-05-29 | XMS | Encounter Summary ---
Demographics + + + | Address | [address] | | | [place] [address] | + + + | Home Phone | | + + + | Preferred Language | Unknown | + + + | Marital Status | | + + + | Faith Affiliation | NON | + + + | Race | or | + + + | Ethnic Group | Not or | + + + Author + + + | Author | [place] [employer] [facility] | + + + | Organization | [facility] | + [...] Team Providers + +------+ + | Care Metal Buildings Assembler Name | Role | Phone | + +------+ + | Brenden Benavides MD | PCP | | + +------+ + Encounter Details +--------+ + + + + | Date | Type | Department | Care Team | Description | +--------+ + + + + | 09/28/ | Documentati | [facility] | Brad Currie MD | | | 2006 | on | Waucoma | | | | | | Neuro-Ophthalmology | | | | | | [address] | | | | | | Mailcode: PATTI | | | | | | [place] [address] | | | | | | [phone] | | | +--------+ + + + [...]
--- OUTSIDE RECORDS SUMMARY | ~2020-05-29 | XMS | Encounter Summary ---
Demographics + + + | Address | [address] | | | [place] [address] | + + + | Home Phone [...] + | Organization | [facility] | | | and [place] [...] Providers + +------+ + | Care Supervisor Paint Department Name | Role | Phone | + +------+ + PCP | Unavailable | + +------+ + Encounter Details +--------+ + + + + | Date | Type | Department | Care Team | Description | +--------+ + + + + | 03/14/ | Hospital | [facility] | Pancho Gonzalez | | | 2012 | Encounter | HOSPITAL EMERGENCY | MD [address] | | | | | CENTER [address] | [place] | | | | | [place] | [address] | | | | | [address] | [phone] | | | | | [phone] | | | +--------+ + + + [...]
--- OUTSIDE RECORDS SUMMARY | ~2020-05-29 | XMS | Encounter Summary ---
Demographics + + + | Address | [address] | | | [place] [address] | + + + | Home Phone [...] + + + | Author | [place] [employer] [facility] | + + + | Organization | [facility] [employer] [facility] | + + + | Address | Unknown | + + + | Phone | Unavailable | + + + Support + + +---------+ + | Name | Relationship | Address | Phone | + + +---------+ + | Ruby Au | ECON | Unknown | | + + +---------+ + Care Team Providers + +------+ + | Care Continuous Process Rotary Drum Tanner Name | Role | Phone | + [...] | Telephone | Neurosurgery at | Kiki Rosen Bud, | Erroneous Encounter | | 2007 | | [place] for [facility] | [facility] | - Disregard | | | | and Healing [address] | Neurosurgery [address] | | | | | [address] Mailcode: | [address] | | | | | [facility] Center for | [place], [place] | | | | | Health and Healing, | [address] | | | | | Building [address] | | | | | | Floor [place], [place] | | | | | | [address] | | | | | | [phone] | | | +--------+ + + + [...]
--- OUTSIDE RECORDS SUMMARY | ~2020-05-29 | XMS | Encounter Summary ---
Demographics + + + | Address | [address] | | | [place] [address] | + + + | Home Phone [...] | Organization | [facility] [...] Team Providers + +------+ + | Care Active Directory Systems Administrator Name | Role | Phone | + +------+ + PCP | Unavailable | + +------+ + Encounter Details +--------+ + + + + | Date | Type | Department | Care Team | Description | +--------+ + + + + | 08/12/ | Hospital | [facility] | Jenn Oreilly, | | | 2012 | Encounter | HOSPITAL EMERGENCY | [facility] [address] | | | | | CENTER [address] | [place] | | | | | [place] | [address] | | | | | [address] | | | | | | [phone] | | | +--------+ + + + [...]
--- OUTSIDE RECORDS SUMMARY | ~2020-05-29 | XMS | Encounter Summary ---
Demographics + + + | Address | [address] | | | [place] [address] | + + + | Home Phone [...] + + + | Author | [place] [employer] [facility] | + + + | Organization | [facility] [employer] [facility] | + + + | Address | Unknown | + + + | Phone | Unavailable | + + + Support + + +---------+ + | Name | Relationship | Address | Phone | + + +---------+ + | Ruby Au | ECON | Unknown | | + + +---------+ + Care Team Providers + +------+ + | Care Barnworker Groom Name | Role | Phone | + [...] Letter Encounter | | 2008 | | [facility] | [address] | | | | | and Healing [address] | [place], [place] | | | | | [address] Mailcode: | [address] | | | | | [facility] | [phone] | | | | | Health and Healing, | | | | | | Building 1, | | | | | | Floor [place], [place] | | | | | | [address] | | | | | | [phone] | | | +--------+ + + + [...]
--- OUTSIDE RECORDS SUMMARY | ~2020-05-29 | XMS | Encounter Summary ---
Demographics + + + | Address | [address] | | | [place] [address] | + + + | Home Phone | | + + + | Preferred Language | Unknown | + + + | Marital Status | | + + + | Pentecostal Affiliation | Unknown | + + + | Race | Unknown | + + + | Ethnic Group | Unknown | + + + Author + + + | Author | [facility] | | | and [place] | + + + | Organization | [facility] | | | and [place] [...] Team Providers + +------+ + | Care Legal Coordinator Name | Role | Phone | + +------+ + PCP | Unavailable | + +------+ + Encounter Details +--------+ + + + + | Date | Type | Department | Care Team | Description | +--------+ + + + + | 07/10/ | Emergency | [facility] | Perry Flores | Headache; Benign | | 2012 | | MEDICAL CENTER | [place] [address] | intracranial | | | | EMERGENCY CENTER | [address] | hypertension; Back | | | | [address] | [place] [address] | pain | | | | [place], [place] | [phone] | | | | | [address] | | | | | | [phone] | | | +--------+ + + + [...] 07/10/132043 Date of Service: 07/10/132043 Status: Signed Scrapper: Magdiel Jansen RN (Registered Nurse) Pt stated that she is ready to go home and feels safe in doing so. If she does not leave no w she will not have a ride. Magdiel Jansen RN 07/10/132043 onver ludwin Transaction, Provider Unknown - 07/10/2013 8:25 PM PDT ED Notes by Magdiel Jansen RN at 07/10/132024 Author: Magdiel Jansen RN Service: (none) Author Type: Registered Nurse Filed: 07/10/132041 Date of Service: 07/10/132024 Status: Signed Scrapper: Magdiel Jansen RN (Registered Nurse) Returned from radiology. Tolerated procedure well. Magdiel Jansen RN 07/10/132041 onver ludwin Transaction, Provider Unknown - 07/10/2013 8:02 PM PDT ED Notes by Magdiel Jansen RN at 07/10/132001 Author: Magdiel Jansen RN Service: (none) Author Type: Registered Nurse Filed: 07/10/132002 Date of Service: 07/10/132001 Status: Signed Scrapper: Magdiel Jansen RN (Registered Nurse) Pt transported to radiology via gurney with tech. Magdiel Jansen RN 07/10/132002 erry Negro MD - 07/10/2013 7:29 PM PDTFormatting of this note might be different from kaitlyn beck original. ED Provider Notes by Anoop Flores MD at 07/10/131928 Author: Anoop Flores MD Service: (none) Author Type: Physician Filed: 07/10/132239 Date of Service: 07/10/131928 Status: Signed Scrapper: Anoop Flores MD (Physician) [facility] Department of Emergency Medicine History of Present [...] shown by XR with her Dr in [place] earlier in the year. Reports grad ual [...] et. Care prior to arrival consisted of [place] twice daily, with no relief. Patient cannot catarina e NSAIDS. Patient's shunt [place] [address] Sterling in [place], [place], for Hydrocephalus. Patient stat es she had no problems with it until this year. Patient has been having headaches all year. Patient lives in [place], spoke with the Neurosurgeon rn occupational, and was told to [facility]. PCP: [facility] Past Medical History Diagnosis Date Diabetes [...] Value Ref Range Date/Time Comprehensive metabolic panel [[id number]] (Abnormal) Collected:07/10/131946 Order Status:Completed Updated:07/10/132010 Specimen Information:Blood [...] EGFR >60 >60 mL/min/1.73m2 CBC with differential [[id number]] (Abnormal) Collected:07/10/131946 Order Status:Completed Updated:07/10/131953 Specimen Information:Blood [...] Morris MD Follow up this week [address] [facility] [address] [facility] Follow up next week [address] [place] [address] [facility] Emergency Department If symptoms worsen [address] [facility] [address] Discharge Medications: New Prescriptions No new medications Additional Documentation Procedures Attending Note: Documentation assistance provided by Jade Burgos (Scribe). Information recorded by the scribe has been reviewed and validated by me. Simon nolasco with its contents. Anoop Flores MD 07/10/132239 onversio n Transaction, Provider Unknown - 07/10/2013 6:15 PM PDTFormatting of this note might be di fferent from the original. ED Notes by Magdiel Jansen RN at 07/10/131814 Author: Magdiel Jansen RN Service: (none) Author Type: Registered Nurse Filed: 07/10/131938 Date of Service: 07/10/131814 Status: Signed Scrapper: Magdiel Jansen RN (Registered Nurse) Bed side [...] | + + + | ANNABELLA Waters Yowza XR LUMBAR SPINE LIMITED 2-3 VIEW HISTORY: [...] Conversion - 07/20/2019 5:54 PM PDT ANNABELLA S MINKAITLYNORNXR LUMBAR SPINE | | LIMITED 2-3 VIEW [...] | + + + | ANNABELLA Jt [facility] CT HEAD WO CONTRAST HISTORY: 37 [...] Conversion - 07/20/2019 5:54 PM PDT ANNABELLA AUCT HEAD WO CONTRAST | | HISTORY:37 years. [...]
--- OUTSIDE RECORDS SUMMARY | ~2020-05-29 | XMS | Encounter Summary ---
Demographics + + + | Address | [address] | | | [place] [address] | + + + | Home Phone | | + + + | Preferred Language | Unknown | + + + | Marital Status | | + + + | Church Affiliation | Unknown | + + + | Race | Unknown | + + + | Ethnic Group | Unknown | + + + Author + + + | Author | [facility] | | | and [place] | + + + | Organization | [facility] | | | and [place] [...] Team Providers + +------+ + | Care Ice Carver Name | Role | Phone | + +------+ + PCP | Unavailable | + +------+ + Encounter Details +--------+ + + + + | Date | Type | Department | Care Team | Description | +--------+ + + + + | 10/29/ | Hospital | [facility] | | | | 1991 | Encounter | MED CTR EMERGENCY | | | | | | CENTER [address] | | | | | | [place] | | | | | | [address] | | | | | | [phone] | | | +--------+ + + + [...]
--- OUTSIDE RECORDS SUMMARY | ~2020-05-29 | XMS | Encounter Summary ---
Demographics + + + | Address | [address] | | | [place] [address] | + + + | Home Phone [...] + + | Author | [place] [employer] [facility] | + + + | Organization | [facility] [employer] [facility] | + + + | Address | Unknown | + + + | Phone | Unavailable | + + + Support + + +---------+ + | Name | Relationship | Address | Phone | + + +---------+ + | Ruby Au | ECON | Unknown | | + + +---------+ + Care Team Providers + +------+ + | Care Sales And Events Coordinator Name | Role | Phone | [...] Cerebri | | 2006 | Visit | [place] | | (Primary Dx) | | | | Neuro-Ophthalmology | | | | | | [address] [facility] | | | | | | Mailcode: PATTI | | | | | | [place] [address] | | | | | | [phone] | | | +--------+---------+ + + + [...] Referred by: CASIMIRO PAYTON MD [address] [place] [address] Per [facility] chart note taken this morning by . Symptoms: Patient specific problem noted by patient: transient visual loss HPI: 31 y.o. year old female from [place] : Patient presents with: Transient visual loss [...] negative Pulmonary: negative GI: Problems due to chcf use of tylenol/ibuprofen. : negative Musculoskeletal: negative [...] Brad Currie MD Neuro-Ophthalmology and Cerebrovascular Disease Straightedge Man of Ophthalmology, Neurology, and Neurosurgery documented in this encounter Plan of Treatment + + +--------+ + + | Name | Type | Priori | Associated Diagnoses | Order Schedule | | | | ty | | | + + +--------+ + + | NV VISUAL FIELD | Procedures | Routin | Pseudotumor | Ordered: 03/27/2007 | | EXAM,EXTENDED | | e | Cerebri | | + + +--------+ + + documented as of this encounter Visit Diagnoses + + | Diagnosis | + + | Pseudotumor cerebri - Primary Benign intracranial hypertension | + + documented in this encounter
--- OUTSIDE RECORDS SUMMARY | ~2020-05-29 | XMS | Encounter Summary ---
Demographics + + + | Address | [address] | | | [place] [address] | + + + | Home Phone [...] | Organization | [facility] | | | and [place]ana [...] Team Providers + +------+ + | Care Wind Turbine Design Engineer Name | Role | Phone | + +------+ + PCP | Unavailable | + +------+ + Encounter Details +--------+ + + + + | Date | Type | Department | Care Team | Description | +--------+ + + + + | 05/28/ | Hospital | [facility] | | | | 1991 | Encounter | MED CTR EMERGENCY | | | | | | CENTER [address] | | | | | | [place] | | | | | | [address] | | | | | | [phone] | | | +--------+ + + + [...]
--- OUTSIDE RECORDS SUMMARY | ~2020-05-29 | XMS | Encounter Summary ---
Demographics + + + | Address | [address] | | | [place] [address] | + + + | Home Phone [...] + + + | Author | [place] [employer] [facility] | + + + | Organization | [facility] [employer] [facility] | + + [...] Providers + +------+ + | Care Railroad Brake Repairer Name | Role | Phone | [...] [place] | | | | | [facility] | [place], [place] | | | | | Health and Healing, | [address] | | | | | Building [address]th | | | | | | Floor [place], [place] | | | | | | [address] | | | | | | [phone] | | | +--------+ + + + [...]
--- OUTSIDE RECORDS SUMMARY | ~2020-05-29 | XMS | Encounter Summary ---
Demographics + + + | Address | [address] | | | [place] [address] | + + + | Home Phone [...] Organization | [facility] | | | and [...] Team Providers + +------+ + | Care Finishing Machine Tender Name | Role | Phone | + +------+ + PCP | Unavailable | + +------+ + Encounter Details +--------+ + + + + | Date | Type | Department | Care Team | Description | +--------+ + + + + | 05/21/ | Hospital | [facility] | | | | 1991 | Encounter | MED [facility] | | | | | | HEALTH [address] | | | | | | [place], | | | | | | [place] [address] | | | | | | [phone] | | | +--------+ + + + [...]
--- OUTSIDE RECORDS SUMMARY | ~2020-05-29 | XMS | Encounter Summary ---
Demographics + + + | Address | [address] | | | [place] [address] | + + + | Home Phone | | + + + | Preferred Language | Unknown | + + + | Marital Status | | + + + | Scientology Affiliation | Unknown | + + + | Race | Unknown | + + + | Ethnic Group | Unknown | + + + Author + + + | Author | [facility] | | | and [place] | + + + | Organization | [facility] | | | and [...] Team Providers + +------+ + | Care Foam Rubber Molder Name | Role | Phone | + +------+ + PCP | Unavailable | + +------+ + Encounter Details +--------+ + + + + | Date | Type | Department | Care Team | Description | +--------+ + + + + | 10/04/ | Hospital | [facility] | | | | 1991 | Encounter | MED CTR [facility] | | | | | | HEALTH [address] | | | | | | [place], | | | | | | [place] [address] | | | | | | [phone] | | | +--------+ + + + [...]
--- OUTSIDE RECORDS SUMMARY | ~2020-05-29 | XMS | Encounter Summary ---
Demographics + + + | Address | [address] | | | [place] [address] | + + + | Home Phone [...] + + | Author | [place] [employer] [facility] | + + + | Organization | [facility] [employer] [facility] [...] Team Providers + +------+ + | Care Locomotive Crane Operator Name | Role | Phone | + +------+ + | Pedro Luis Sams MD | PCP | | + +------+ + Encounter Details +--------+ + + + + | Date | Type | Department | Care Team | Description | +--------+ + + + + | 09/09/ | Documentati | Preoperative | Kerline Slaughter, | | | 2010 | on | Medicine Clinic at | | | | | | [facility] 4th Floor Day | | | | | | Stay [address] | | | | | [address] | | | | | | Mailcode: [id number] | | | | | | [place]oteo [place] | | | | | | [address] [place], [place] | | | | | | [address] | | | | | | [phone] | | | +--------+ + + + [...]
--- OUTSIDE RECORDS SUMMARY | ~2020-05-29 | XMS | Encounter Summary ---
Demographics + + + | Address | [address] | | | [place] [address] | + + + | Home Phone [...] + + + | Author | [place] [employer] [facility] | + + + | Organization | [facility] [employer] [facility] | + + + | Address | Unknown | + + + | Phone | Unavailable | + + + Support + + +---------+ + | Name | Relationship | Address | Phone | + + +---------+ + | Ruby Au | ECON | Unknown | | + + +---------+ + Care Team Providers + +------+ + | Care Ec Teacher Name | Role | Phone | [...] Refill Request | | 2012 | | [place]/[facility]hthalmol | MD Perry | | | | | ramonjaneen at [facility] [address] | | | | | | [address] Mailcode: | | | | | | CH11P [facility] | | | | | | Health and Healing, | | | | | | [facility] | | | | | | Floor [place], [place] | | | | | | [address] | | | | | | [phone] | | | +--------+--------+ + + + [...]
--- OUTSIDE RECORDS SUMMARY | ~2020-05-29 | XMS | Encounter Summary ---
Demographics + + + | Address | [address] | | | [place] [address] | + + + | Home Phone [...] Organization | [facility] | | [...] Team Providers + +------+ + | Care Wellness Program Administrator Name | Role | Phone | + +------+ + PCP | Unavailable | + +------+ + Encounter Details +--------+ + + + + | Date | Type | Department | Care Team | Description | +--------+ + + + + | 09/03/ | Hospital | [facility] | | | | 1991 | Encounter | MED CTR [facility] | | | | | | HEALTH [address] | | | | | | [place], | | | | | | [place] [address] | | | | | | [phone] | | | +--------+ + + + [...]
--- OUTSIDE RECORDS SUMMARY | ~2020-05-29 | XMS | Encounter Summary ---
Demographics + + + | Address | [address] | | | [place] [address] | + + + | Home Phone [...] + + + | Author | [place] [employer] [facility] | + + + | Organization | [facility] [employer] [facility] | + + + | Address | Unknown | + + + | Phone | Unavailable | + + + Support + + +---------+ + | Name | Relationship | Address | Phone | + + +---------+ + | Ruby Au | ECON | Unknown | | + + +---------+ + Care Team Providers + +------+ + | Care Map Editor Name | Role | Phone | + [...] | | | | | CH8N [facility] | [place], [place] | | | | | Health and Healing, | [address] | | | | | Building | | | | | | Floor [place], [place] | | | | | | [address] | | | | | | [phone] | | | +--------+--------+ + + + [...]
--- OUTSIDE RECORDS SUMMARY | ~2020-05-29 | XMS | Encounter Summary ---
Demographics + + + | Address | [address] | | | [place] [address] | + + + | Home Phone | | + + + | Preferred Language | Unknown | + + + | Marital Status | | + + + | Tenriism Affiliation | Unknown | + + + | Race | Unknown | + + + | Ethnic Group | Unknown | + + + Author + + + | Author | [facility] | | | and [place]ana | + + + | Organization | [facility] | | | and Williamana [...] Team Providers + +------+ + | Care Vegetable Picker Name | Role | Phone | + +------+ + PCP | Unavailable | + +------+ + Encounter Details +--------+ + + + + | Date | Type | Department | Care Team | Description | +--------+ + + + + | 07/06/ | Hospital | [facility] | Mirna Lambert | | | 2007 | Encounter | MED CTR EMERGENCY | MD Kwaku Gregory | | | | | CARL [address] | [facility] | | | | | [place] | [place] [address] | | | | | [address] | [phone] | | | | | [phone] | | | +--------+ + + + [...]
--- OUTSIDE RECORDS SUMMARY | ~2020-05-29 | XMS | Encounter Summary ---
Demographics + + + | Address | [address] | | | [place] [address] | + + + | Home Phone [...] + + | Author | [place] [employer] [facility] | + + + | Organization | [facility] [employer] [facility] | + + + | Address | Unknown | + + + | Phone | Unavailable | + + + Support + + +---------+ + | Name | Relationship | Address | Phone | + + +---------+ + | Ruby Au | ECON | Unknown | | + + +---------+ + Care Team Providers + +------+ + | Care Tipping Machine Operator Automatic Name | Role | Phone | [...] | Headache | | 2005 | | [place]/Ophthalmol | MD Jordin | | | | | leon at [facility] [address] | | | | | | [address] Mailcode: | | | | | | CH11P [facility] | | | | | | Health and Healing, | | | | | | Building | | | | | | Floor [place], [place] | | | | | | [address] | | | | | | [phone] | | | +--------+ + + + [...]
--- OUTSIDE RECORDS SUMMARY | ~2020-05-29 | XMS | Encounter Summary ---
Demographics + + + | Address | [address] | | | [place] [address] | + + + | Home Phone [...] + + | Author | [place] [employer] [facility] | + + + | Organization | [facility] Science [facility] | [...] Team Providers + +------+ + | Care Corn Sheller Operator Name | Role | Phone | [...] Cerebri | | 2006 | Visit | [place] | | (Primary Dx) | | | | Neuro-Ophthalmology | | | | | | [address] [facility] | | | | | | Mailcode: PATTI | | | | | | [place] [address] | | | | | | [phone] | | | +--------+---------+ + + + [...] CASIMIRO PAYTON MD [address] [place] [address] Per [facility] chart note taken this morning by . Symptoms: Patient specific problem noted by patient: transient visual loss HPI: 31 y.o. year old female from [place] : Patient presents with: Transient visual loss [...] negative Pulmonary: negative GI: Problems due to mcc use of tylenol/ibuprofen. : negative Musculoskeletal: negative [...] Brad Currie MD Neuro-Ophthalmology and Cerebrovascular Disease Publication Director of Ophthalmology, Neurology, and Neurosurgery documented in [...]
--- OUTSIDE RECORDS SUMMARY | ~2020-05-29 | XMS | Encounter Summary ---
Demographics + + + | Address | [address] | | | [place] [address] | + + + | Home Phone [...] + + + | Author | [place] [employer] [facility] | + + + | Organization | On License Of [facility] [employer] [facility] [...] Providers + +------+ + | Care Marine Engineer Cpvec Name | Role | Phone | + [...] Erroneous Encounter | | 2007 | | [facility] | [facility] | - Disregard | | | | and Healing [address] | Neurosurgery [address] | | | | | [address] Mailcode: | [address] | | | | | CH8N Center for | [place], [place] | | | | | Health and Healing, | [address] | | | | | Building 1, | | | | | | Floor [place], [place] | | | | | | [address] | | | | | | [phone] | | | +--------+--------+ + + + [...]
--- OUTSIDE RECORDS SUMMARY | ~2020-05-29 | XMS | Encounter Summary ---
Demographics + + + | Address | [address] | | | [place] [address] | + + + | Home Phone [...] + + + | Author | [place] [employer] Science [facility] | + + + | Organization | [facility] [employer] Science [facility] | + [...] Team Providers + +------+ + | Care Sas Analyst Name | Role | Phone | [...] | | | | [address] | [facility], | | | | | | [place], [place] | 10th Floor | | | | | | [address] | [place], [place] | | | | | | Phone: | [address] | | | | | | [phone] | Phone: | | | | | | Fax: | [phone] | | | | | | [phone] | Fax: | | | | | | | [phone] | +--------+--------+ + + + + Reason [...] Sky Maloney | | | | | [facility] | [place], [place] | | | | | [place], [place] | [address] | | | | | [address] | [phone] | | | | | [phone] | | | | | | | [...] the irma aviva. Thanks for coming to [facility] today. Your head CT was negative for any new findings. The neurosurgeon did not think there was a malfunction in your shunt. The customer relationship specialist recommends you taking Diomox again and follow up in [facility] at [facility]. Please follow up with your doctor. Rest, [...] + + + | [facility] | [address] | [place], [place] | | | ZACHARIAH GRIFF[facility] | [address] | [address] | | | TESTS | | | [...] + + + + + | [facility] | [address] | [place] [address] | | | SERVICES, CORE | SKY [...] | | | | | CHRISTIANO TORRES ([id number]) | | | | | | on 03/14/2013 10:35:55 AM | | | | + + + + + + + + | Specimen | + + | | + + + + + | Narrative | Performed At | + + + | Please click | [facility] | | on view image for the detailed interpretation from In*Situ Architecture results. | CARDIOLOGY | + + + + + + + + | Performing | Address | City/State/Zipcode | Phone Number | | Organization | | | | + + + + + | [facility] | [address] | [place], [place] | | | CARDIOLOGY | [address] | [address] | | + + + + + [...] [facility] | [address] | [place], [place] | | | ZACHARIAH GRIFFITH OF CARE | [facility] | [address] | | | TESTS | | | [...] [facility] | [address] | [place] [address] | | | SERVICES, CORE | [address]ARK [...] + + + | [facility] | [address] [facility] | [place] [address] | | | SERVICES, CORE | SKY [...] | | | LABORATORY | | | [place] | | | SERVICES, | | | [...] [facility] | [address] | [place] [address] | | | SERVICES, CORE | PARK [...] | + + + + + | [employer] [facility] | [address] | [place] [address] | | | SERVICES, CORE | SKY [...] + | [place] - AIRPORT - | [address] | [place] [address] | | | [place] | | | | + + + + + RAINBOW HOLD TUBE - RED TOP (03/13/2013 11:52 AM PDT) + + | Specimen | + + | Blood - Blood | + + + + + + + | Performing | Address | City/State/Zipcode | Phone Number | | Organization | | | | + + + + + | [facility] | [address] [facility] | [place] [address] | | | SERVICES, CORE | SKY [...] | | | intravenous, ONCE, 1 dose, Chuckie | | PM PDT | | | | | 03/13/13 at 1830 | | | | | | + +---------+ +------+--------+---+ +---+---+ | | | +---+---+ documented in this encounter
--- OUTSIDE RECORDS SUMMARY | ~2020-05-29 | XMS | Encounter Summary ---
Demographics + + + | Address | [address] | | | [place] [address] | + + + | Home Phone [...] + + + | Author | [place] [employer] Science [facility] | + + + | Organization | [facility] [employer] Science [facility] | + [...] Team Providers + +------+ + | Care Energy Project Manager Name | Role | Phone [...] Cerebri | | 2006 | Visit | [place] | [address] | (Primary Dx) | | | | Oculoplastics at | [place], [place] | | | | | [address] | [address] | | | | | [address] | [phone] | | | | | [place] | | | | | | [facility], [address] [place] [address] | | | | | | [place] [address] | | | | | | [phone] | | | +--------+---------+ + + + [...]
--- OUTSIDE RECORDS SUMMARY | ~2020-05-29 | XMS | Encounter Summary ---
Demographics + + + | Address | [address] | | | [place] [address] | + + + | Home Phone [...] + + + | Author | [place] [employer] [facility] | + + + | Organization | [facility] | + + + | Address | Unknown | + + + | Phone | Unavailable | + + + Support + + +---------+ + | Name | Relationship | Address | Phone | + + +---------+ + | Ruby Au | ECON | Unknown | | + + +---------+ + Care Team Providers + +------+ + | Care Outside Physical Damage Appraiser Name | Role | Phone | + [...] Papilledema | | 2006 | Visit | [place] | [address] | Associated with | | | | Oculoplastics at | [place], [place] | Increased | | | | [place] [address] [address] | [address] | Intracranial | | | | [address] | [phone] | Pressure; 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 Visual Acuity: [facility] RE 20/20-1 LE 20/25-2 NI Pupil: OS [...] 1. Schedule left optic nerve sheath fenestration. ALEX. documented in this encounter Plan of Treatment [...]
--- OUTSIDE RECORDS SUMMARY | ~2020-05-29 | XMS | Encounter Summary ---
Demographics + + + | Address | [address] | | | [place] [address] | + + + | Home Phone [...] | [facility] | | | and [place] [...] Team Providers + +------+ + | Care Claim Specialist Name | Role | Phone | + +------+ + PCP | Unavailable | + +------+ + Encounter Details +--------+ + + + + | Date | Type | Department | Care Team | Description | +--------+ + + + + | 01/27/ | Hospital | [facility] | [place] | | | 2011 - | Encounter | MED CTR EMERGENCY | DO Gaurang Drake | | | | | [place] | [place], [place] | | | 01/28/ | | [place], [place] | [address] | | | 2011 | | [address] | | | | | | [phone] | | | +--------+ + + + [...] documented as of this encounter ED Notes Vern Carlin MD - 01/28/2012 10:55 PM PSTDATE: 01/28/2012 ADDENDUM When I informed her that I would not give her narcotics for a chronic headache, she became very upset . I said I could give her tramadol or some other non-narcotic medications. I cam e out to write up her discharge instructions with referral to a inspector rough castings for the rash, as well as a prescription for tramadol, including a home pack of it, and some Zofran. She walked out before evaluation was complete . Therefore, please add to the discharge diagnosi s, left before evaluation complete. DICTATED BY: Vern Carlin M.D. Emergency Medicine JOB #: [id number] EXT JOB #:[id number] <Electronicall y Signed by Vern Carlin MD> 02/07/12 0734 Vern Carlin MD - 01/28/2012 10:55 PM PSTDATE: 01/28/2012 CHIEF COMPLAINT: Headache and rash. HISTORY OF PRESENT ILLNESS: Annabella is a 36-year-old female, states she has had what sounds like a michelle tricular or a PROCESS SAFETY SPECIALIST shunt placed for hydrocephalus several years ago. The shunt apparently brok e. She has never had it removed and has had occasional headaches sinc e then. She said that she was se en here about 2 weeks ago for the same thing, was told to follow up and have the shunt removed. She h as not followed up. She said she had a primary care doctor, but she had some sort of falling out with him, so she is not seeing him any mo re. She states she did not want to go to the ER in [place], as she has had bad experience with them. She states she has had a headache today, so she came in to the ER for further e valuation. She has had some nausea, but no vomiting, no diarrhea or associated sympt oms. N o photophobia. She also complains of kind of a diffuse blanching rash on her back and trunk, wh ich is itching and burning and bothering her. PAST MEDICAL HISTORY: Significant for hypertension, hydrocephalus, anxiety, and migraines. PAST SURGICAL HISTORY: Significant for , spinal shunt, appendectomy, tonsillectomy . REVIEW OF SYSTEMS: All systems reviewed were negative except as in HPI. PHYSICAL EXAMINATION GENERAL: Reveals a 36-year-old female in no apparent distress. INITIAL VITALS: BP 129/74, pulse 103, respirations 16, temperature 96.6, 95% on room air. HEENT: Pupils are equally round and reactive to light. Mucous membranes are moist. Nasal pa ssages lorenzo ar. NECK: Trachea is midline. CHEST: Lungs are clear to auscultation bilaterally. No rales. No wheezes. CARDIOVASCULAR: Rate and rhythm is regular. ABDOMEN: Nontender, nondistended. EXTREMITIES: No edema. SKIN: She has a diffuse blanching rash over her back that appears hive-like in nature that is coalesc ing into larger ones over her back and trunk. EMERGENCY DEPARTMENT COURSE: Today she had a brain CT, which was negative for mass, bleed, stroke, or hydrocephalus. She was given 30 Toradol, 0.65 droperidol, 25 of Benadryl. She sa id her headache was still there. She was given 10 of Compazine. She was also given 40 of pr ednisone for her rash. She was requesting Dilaudid. I informed her she could not have narco tics, as we had just seen here 2 weeks a go and chronic headaches are no longer treated wit h narcotics. She was very unhappy about not receivi ng Dilaudid; however, I told her she co uld see her regular doctor if she is having chronic pain issue s with her headaches. She is discharged home. She was referred on to dermatology as well for the furt her evaluation of the rash. DIAGNOSES 1. MIGRAINE. 2. DERMATITIS/HIVES. DISPOSITION: Home. DICTATED BY: Vern Carlin M.D. Emergency Medicine JOB #: [id number] EXT JOB #:[id number] <Electronicall y Signed by Vern Carlin MD> 02/07/12 0734 documented in this encounter Plan of Treatment Not on filedocumented as of this encounter Procedures + +--------+ + + + | Procedure Name | Priori | Date/Time | Associated Diagnosis | Comments | | | ty | | | | + +--------+ + + + | CT HEAD WO CONTRAST | | 01/28/2012 | | Results for this | | | | 10:55 PM | | procedure are in the | | | | PST | | results section. | + +--------+ + + + documented in this encounter Results CT Head wo Contrast (01/28/2012 10:55 PM PST) + + | Specimen | + + | | + + + + + | Narrative | Performed At | + + + | [facility] | [place] | | [address] | [facility] | | UNENHANCED HEAD CT, 01/28/2012, | DIAG IMG | | 2342 HOURS CLINICAL HISTORY: FRONTAL HEADACHE AND CONFUSION. | | | COMPARISON: Brain MRI 11/04/2005. TECHNIQUE: Axial unenhanced | | | images are performed through the head. FINDINGS: Fine detail is | | | somewhat obscured as a result of beam hardening artifact arising from | | | the c alvarium and patient motion. The brain parenchyma, | | | ventricles, brainstem and cerebellum are grossly unremarkable. There | | | is no shift of midline structures, evidence of intracranial | | | hemorrhage, or extraa xial fluid collection/mass. The bones and soft | | | tissues, including the imaged paranasal sinuses and ma stoid air | | | cells, are unremarkable. IMPRESSION: 1. NO EVIDENCE OF | | | INTRACRANIAL DISEASE, ALLOWING FOR TECHNICAL LIMITATIONS DISCUSSED | | | ABOVE. COMMENT: PRELIMINARY RESULTS OF THE STUDY WERE | | | COMMUNICATED TO THE ER STAFF BY THE [facility] RADIOLOG IST ON | | | 01/29/2012 AT 0003 HOURS. Dictated Date/Time: 01/29/2012 09:41 | | | Transcribed Date/Time: 01/29/2012 09:47 End Matcher: | | | <Electronically Signed by Ivan Smalls MD> 01/29/12 1606 | | + + + + + | Procedure Note | + + | Neal, Rad Conversion - 01/04/2014 4:51 PM [facility] | | Diagnostic Imaging Department [address] [place] [address] | | UNENHANCED HEAD CT, 01/28/2012, 2342 HOURS CLINICAL | | HISTORY: FRONTAL HEADACHE AND CONFUSION. COMPARISON: Brain MRI 11/04/2005. TECHNIQUE: | | Axial unenhanced images are performed through the head. FINDINGS: Fine detail is | | somewhat obscured as a result of beam hardening artifact arising from the calvarium and | | patient motion. The brain parenchyma, ventricles, brainstem and cerebellum are grossly | | unremarkable. There is no shift of midline structures, evidence of intracranial | | hemorrhage, or extraaxial fluid collection/mass. The bones and soft tissues, including | | the imaged paranasal sinuses and mastoid air cells, are unremarkable. IMPRESSION: 1. NO | | EVIDENCE OF INTRACRANIAL DISEASE, ALLOWING FOR TECHNICAL LIMITATIONS DISCUSSED | | ABOVE. COMMENT: PRELIMINARY RESULTS OF THE STUDY WERE COMMUNICATED TO THE ER STAFF BY | | [facility] ON 01/29/2012 AT 0003 HOURS. Dictated Date/Time: 01/29/2012 | | 09:41Transcribed Date/Time: 01/29/2012 09:47Transcriptionist: <Electronically | | Signed by Ivan Smalls MD> 01/29/12 1606 | |alvarium and patient motion. The brain parenchyma, ventricles, brainstem and cerebellum ar e grossly | |unremarkable. There is no shift of midline structures, evidence of intracranial hemorrhage, or extraa | |xial fluid collection/mass. The bones and soft tissues, including the imaged paranasal sinu ses and ma | |stoid air cells, are unremarkable. | | | |IMPRESSION: | |1. NO EVIDENCE OF INTRACRANIAL DISEASE, ALLOWING FOR TECHNICAL LIMITATIONS DISCUSSED ABO VE. | | | |COMMENT: PRELIMINARY RESULTS OF THE STUDY WERE COMMUNICATED TO THE ER STAFF BY THE [facility] RADIOLOG | |IST ON 01/29/2012 AT 0003 HOURS. | | | |Dictated Date/Time: 01/29/2012 09:41 | |Transcribed Date/Time: 01/29/2012 09:47 | |End Matcher: | |<Electronically Signed by Ivan Smalls MD> 01/29/12 1606 | + + + +---------+ + + | Performing | Address | City/State/Zipcode | Phone Number | | Organization | | | | + +---------+ + + | [place] | | | | | [facility] | | | | + +---------+ + + documented in this encounter Visit Diagnoses Not on filedocumented in this encounter"
--- OUTSIDE RECORDS SUMMARY | ~2020-05-29 | XMS | Encounter Summary ---
Demographics + + + | Address | [address] | | | [place] [address] | + + + | Home Phone [...] + + + | Author | [place] [employer] [facility] | + + + | Organization | [facility] [employer] [facility] [...] Team Providers + +------+ + | Care Administrative Fellow Name | Role | Phone | + [...] | | | | | | | [place] | | | | | | | [id number] | | | | | | | [facility] | | | | | | | [place], | | | | | | | [place] [address] | | | | | | | Phone: | | | | | | | [phone] | +--------+--------+ + + + + Encounter Details +--------+ + + + + | Date | Type | Department | Care Team | Description | +--------+ + + + + | 08/01/ | Hospital | [facility] [address] | Sam Pedroza MD | | | 2007 - | Encounter | [place] | [address] | | | | | [id number] [facility] | [place], [place] | | | 08/02/ | | HOSPITAL [place], | [address] | | | 2007 | | [place] [address] | [phone] | | | | | [phone] | | | +--------+ + + + [...] in 2 weeks, please call for appointment: [phone] Condition On Discharge: Vital Signs at discharge [...] in 2 weeks, please call for appointment: [phone] Condition On Discharge: Vital Signs at discharge [...] Mode of Transportation: Car Accompanied by: Family/Responsible Democrat Discharge Nurse: Anni Oliva Date: 08/02/2008 Discharge [...] independently, has no ADL needs and [facility] Dr. Pedroza agreed that she would not need therapies. Spoke with RN who endorses that pt has been up independently last pm and this am. OT to sign off at this time. Yessenia Nowak, OTR/ L 20859 Tomasz Caldera Md - 02/2008 11:08 AM [...] | | + +---------+ + + | [facility] DEPARTMENT OF | | | | | RADIOLOGY | | | | + +---------+ + + OPERATION RECORD (08/01/2008 12:00 AM PDT) + + + | Narrative | Performed At | + + + | [id number] | | | [id number] | | | [place] [id number] Date: | | | 08/01/2008 Attending Surgeon: | | | Sam Pedroza M.D. Nut Sorter(s): | | | Tomasz Rice M.D. | [...] | tonsils and then gently incised. A [place] 4 was then easily fed | | [...] | | | Pooja Pedroza M.D. / [id number] / | | | [id number] / [id number] / | | + + + + + | Procedure Note | + + | Krystal Rushing, Tomasz - 08/01/2008 12:00 AM PDT [id number] | | [id number] [place] | | [id number] Date: 08/01/2008 Attending Surgeon: Sam | | Pooja Pedroza Nut Sorter(s): Tomasz Rice M.D. | | Palomo Jansen [...] tonsils and | | thengently incised. A [place] 4 was then easily fed through it, [...] Sam Pedroza M.D. KG / | | [id number] / [id number] / [id number] / T: 08/02/2008 | |dripping from the [...] tonsils and then | |gently incised. A [place] 4 was then easily fed through it, [...] | | | |KG / HS | |[id number] / [id number] / [id number] / | | | | | | | | | | | | | | | | | | | | | + + TEACHING PHYSICIAN (08/01/2008 12:00 AM PDT) + + + | Narrative | Performed At | + + + | [id number] | | | [id number] | | | [place] [id number] | | | Date: 08/01/2008 Attending Surgeon: | | | Sam Pedroza M.D. Nut Sorter(s): | | | Tomasz Rice M.D. | [...] | | | Pooja Pedroza / LANETTE [id number] / [id number] / [id number] / [id number] D: | | | 08/01/2008 | | + + + + + | Procedure Note | + + | Sam Pedroza MD - 08/01/2008 12:00 AM PDT [id number] | | [id number] [place] | | [id number] Date: 08/01/2008ttending Surgeon: Sam | | Pooja Pedroza Nut Sorter(s): Tomasz Rice M.D. | | Palomo Jansen [...] | Bisi. Sam Pedroza M.D. AD / [id number] / [id number] / [id number] / [id number]: | | 08/01/2008T: 08/01/2008 | | | [...] | | | |AD / HS | |[id number] / [id number] / [id number] / 78585 | | | | | | | [...]
--- OUTSIDE RECORDS SUMMARY | ~2020-05-29 | XMS | Encounter Summary ---
Demographics + + + | Address | [address] | | | [place] [address] | + + + | Home Phone [...] + + + | Author | [place] [employer] [facility] | + + + | Organization | [facility] [facility] | [...] Team Providers + +------+ + | Care Flash Welding Machine Operator Name | Role | Phone [...] Cerebri | | 2006 | Visit | [place] | | (Primary Dx) | | | | Neuro-Ophthalmology | | | | | | [address] [facility] | | | | | | Mailcode: PATTI | | | | | | [place] [address] | | | | | | [phone] | | | +--------+---------+ + + + [...] documented as of this encounter Progress Notes [place] Beach[place] - 11/30/2006 11:58 AM PSTFormatting of this [...] Brad Currie MD Neuro-Ophthalmology and Cerebrovascular Disease [facility] documented in [...]
--- OUTSIDE RECORDS SUMMARY | ~2020-05-29 | XMS | Encounter Summary ---
Demographics + + + | Address | [address] | | | [place] [address] | + + + | Home Phone | | + + + | Preferred Language | Unknown | + + + | Marital Status | | + + + | Nondenominational Affiliation | Unknown | + + + | Race | Unknown | + + + | Ethnic Group | Unknown | + + + Author + + + | Author | [facility] | | | and [place] | + + + | Organization | [facility] | | | and [...] Team Providers + +------+ + | Care Rolling Machine Operator Automatic Name | Role | Phone | + +------+ + PCP | Unavailable | + +------+ + Encounter Details +--------+ + + + + | Date | Type | Department | Care Team | Description | +--------+ + + + + | 04/20/ | Hospital | [facility] | | | | 1995 | Encounter | MED CTR EMERGENCY | | | | | | CENTER [address] | | | | | | [place] | | | | | | [address] | | | | | | [phone] | | | +--------+ + + + [...]
--- OUTSIDE RECORDS SUMMARY | ~2020-05-29 | XMS | Encounter Summary ---
Demographics + + + | Address | [address] | | | [place] [address] | + + + | Home Phone [...] + + + | Organization | [facility] [...] Team Providers + +------+ + | Care Calculating Machine Operator Name | Role | Phone | + +------+ + PCP | Unavailable | + +------+ + Encounter Details +--------+ + + + + | Date | Type | Department | Care Team | Description | +--------+ + + + + | 08/03/ | Hospital | [facility] | | | | 1990 | Encounter | MED CTR EMERGENCY | | | | | | CENTER [address] | | | | | | [place] | | | | | | [address] | | | | | | [phone] | | | +--------+ + + + [...]
--- OUTSIDE RECORDS SUMMARY | ~2020-05-29 | XMS | Encounter Summary ---
Demographics + + + | Address | [address] | | | [place] [address] | + + + | Home Phone [...] + | Organization | [facility] [...] Team Providers + +------+ + | Care Uke Driver Name | Role | Phone | + +------+ + PCP | Unavailable | + +------+ + Encounter Details +--------+ + + + + | Date | Type | Department | Care Team | Description | +--------+ + + + + | 01/15/ | Hospital | [facility] | Marine Leonard | | | 2011 | Encounter | MED CTR EMERGENCY | DO Gaurang Drake | | | | | [address] | [place], [place] | | | | | [place], [place] | [address] | | | | | [address] | | | | | | [phone] | | | +--------+ + + + [...] documented as of this encounter ED Notes Marine Leonard MD - 01/15/2012 2:31 PM PSTDATE: 01/15/2012 The patient is a 36-year-old female comes in with chief complaint of a headache. The the medical centere nt states that she was recently in [place] and saw her neurologist. She said she had some tests done in September and October, and said that her REFRIGERATION HOUSEMAN shunt was no longer in place. She was supposed to have it removed, but decided to wait because her mother has been very, nayeli y sick and is according to the patient near-, so the patient does not want to go in to have this procedure performed because she does not want to be taken away from her mother. The patient is set up to have elective removal of this whenever she is able. The patient s tates that she was seen at [place] today for her headache, but she states that she does n ot like the physicians who treat her there and she thinks that the hospital is not a good h ospital, so she came here to be further evaluated. The patient states that she has had inte rmittent headaches ongoing for quite some time. She has been seen here once in the past fo r that and did have a shunt workup at that time, which included x-ray and an LP for spinal fluid pressure, and it turned out to be normal. The patient states that she is not wishing to have any procedures done. She just wants something to help her to deal with her headache . The patient states that she is not currently taking any narcotic medications. She takes T ramadol, Soma and naproxen, and that she is not taking any other medications. She states that she was seen twice in [place] and was given some sort of medicine, but s he does know the name of it, but it did not help her headache and so she came here for to s ekwok further treatment. Apparently when she was at [place], she had received some morphine on one occasion and on a second occasion she received morphine, Phenergan, and Toradol. Th e patient states that this headache has been ongoing now for a couple of days. She states i t is similar to her previous headaches. She has pain just in the front part of her head, s ort of in the frontal region and she has a throbbing sensation. She states that she does howell ve photophobia and sensitivity to light and feels somewhat nauseated. She is not complainin g of any nausea, vomiting, no loss of power or sensation to her arms or legs. No tingling o r numbness. No confusion. No difficulty talking. She has not had any fevers. No muscle ache s. No sore throat. No sinus pressure. No chest pain. No cough, no trouble breathing. No ab dominal type complaints. No rashes or back pain. REVIEW OF SYSTEMS: Ten point review of systems negative except as mentioned in HPI. PAST MEDICAL HISTORY: Significant for chronic headaches secondary to pseudotumor cerebri a nd having a REFRIGERATION HOUSEMAN shunt placed. Again, she states that the shunt has been dislodged, and she w as advised to have it taken out, but has declined to do so that she can stay here and take care of her mother. She also has a history of hypertension. Patient states that she has had surgery in the past. She had a cholecystectomy. MEDICATIONS: As already mentioned, the patient states she takes tramadol, soma and naproxe n. She states that she has and DOES NOT HAVE ANY DRUG ALLERGIES. PHYSICAL EXAMINATION VITAL SIGNS: Stable. Her temperature is 98.9, respiratory rate 18, heart rate 105, blood p ressure 113/75, she is 93% on room air. Patient is alert. She appears to be in no acute dis tress. HEENT: Essentially normal. The oropharynx is clear. Pupils equal round and reactive. Extra ocular movements intact NECK: Normal on inspection, it is supple. She has no lymphadenopathy. She has no stiffness or meningismus signs. RESPIRATORY: She has no respiratory distress. CARDIOVASCULAR: She is regular rhythm. ABDOMEN: Soft. SKIN: Warm and dry. EXTREMITIES: Nontender with no pedal edema. NEUROPSYCH: The patient is alert, oriented x3. Mood and affect within normal limits. Her c ranial nerves are normal as tested. Her pupils are equal, round, and reactive. Cerebellar t esting is normal, and she has no motor or sensory deficits. The patient received 2 mg of Dilaudid IM and Zofran 8 mg p.o. I did educate the patient th at she has not been here in a long time, but as per our new pain policy that we will no markel jerry be giving narcotics out for chronic conditions or for acute exacerbations of painful co nditions. The patient is diagnosed with HEADACHE. She is to go home and rest. She is to talk with Dr Mike Sams regarding her pain medications as these will be not be provided in the ER for ch ronic conditions such as this. Patient voiced understanding of discharge instructions and a mbulated from the ER without difficulty. DICTATED BY: Vidal Leonard, Emergency Medicine JOB #: [id number] EXT JOB #:[id number] <Electronicall y Signed by Jt Leonard DO> 01/21/12 1454 documented in this encounter Plan of Treatment Not on filedocumented as of this encounter Visit Diagnoses Not on filedocumented in this encounter"
--- OUTSIDE RECORDS SUMMARY | ~2020-05-29 | XMS | Encounter Summary ---
Demographics + + + | Address | [address] | | | [place] [address] | + + + | Home Phone [...] + + + | Author | [place] [employer] [facility] | + + + | Organization | [facility] [employer] [facility] [...] Providers + +------+ + | Care Pastry Decorator Name | Role | Phone | + [...] | | | | | cerebri | [address] | | | | | | Procedures | Ave | | | | | | CONSULT TO | [place], [place] | | | | | | [facility] | [address] | | | | | | | Phone: | | | | | | | [phone] | | | | | | | Fax: | | | | | | | [phone] | | +--------+--------+ + + + + [...] Cerebri | | 2005 | Visit | [facility] | [address] | (Primary Dx) | | | | Rd Mailcode:OP14B | [place], [place] | | | | | [facility] | [address] | | | | | [place], [place] | [phone] | | | | | [address] | | | | | | [phone] | | | +--------+---------+ + + + [...] pressu re. Referral to Dr. Maloney in [place], [place] where a lumboperitoneal shunt was placed and subsequently explanted due to infection and migration of the catheter tip from the peritoneal space. She feels that her symptoms were helped at the time of the placement of the shunt; the head aches and visual problems have worsened since shunt removal. She has opted to come to [facility] rather than to return to [place] based on travel convenience. Review of Systems: [...] brain without; Neuro-ophthalmology consultation. [facility] Plan of Treatment Not on filedocumented [...] | | + +---------+ + + | [facility] DEPARTMENT OF | | | | | RADIOLOGY | | | | + +---------+ + + documented in this encounter Visit Diagnoses + + | Diagnosis | + + | Pseudotumor cerebri - Primary Benign intracranial hypertension | + + documented in this encounter
--- OUTSIDE RECORDS SUMMARY | ~2020-05-29 | XMS | Encounter Summary ---
Demographics + + + | Address | [address] | | | [place] [address] | + + + | Home Phone [...] Organization | [facility] | [...] Team Providers + +------+ + | Care Baking Factory Worker Name | Role | Phone | + +------+ + PCP | Unavailable | + +------+ + Encounter Details +--------+ + + + + | Date | Type | Department | Care Team | Description | +--------+ + + + + | 03/29/ | Hospital | [facility] | | | | 2006 | Encounter | MED CTR XRAY [address] | | | | | | [address] | | | | | | [place] [id number] | | | | | | [phone] | | | +--------+ + + + [...]
--- OUTSIDE RECORDS SUMMARY | ~2020-05-29 | XMS | Clinical Summary ---
Demographics + + + | Address | [address] | | | [place] [address] | + + + | Home Phone [...] Team Providers + +------+ + | Care Group Teacher Name | Role | Phone | + +------+ + | Dennis Maddox | PCP | | + +------+ + Source Comments [facility] is fully live on both [facility] Ambulatory and [facility] InPatient.[facility] Allergies + + + [...] | | | + +--------+ +--------+-------+---------+--------+ | BOND CLERK MEDICAID | BOND CLERK | xxxxxxxx | 11/28/19 | | | [...] | 1975 | [phone] | [place] [address] | | | rene | | | 0 (Home) | | + +--------+ +--------+ + + Advance Directives + + + + + | Type | Date Recorded | Patient | Explanation | | | | Cable Tool Operator | | + + + + + | Advance | | | | | Directives and | | | | | Living Will | | | | + + + + + | Power of | | | | | Food Technology Teacher | | | | + + + [...]
--- OUTSIDE RECORDS SUMMARY | ~2020-05-29 | XMS | Encounter Summary ---
Demographics + + + | Address | [address] | | | [place] [address] | + + + | Home Phone [...] + + | Author | [place] [employer] [facility] | + + + | Organization | [facility] [employer] [facility] | + [...] Team Providers + +------+ + | Care Linux Admin Name | Role | Phone | + [...] | | | Ave Mailcode: CH8N | [place], [place] | | | | | [facility] | [address] | | | | | and Healing, | [phone] | | | | | [facility] | | | | | | Floor [place], [place] | | | | | | [address] | | | | | | [phone] | | | +--------+ + + + [...]
--- OUTSIDE RECORDS SUMMARY | ~2020-05-29 | XMS | Encounter Summary ---
Demographics + + + | Address | [address] | | | [place] [address] | + + + | Home Phone [...] + + | Author | [place] [employer] [facility] | + + + | Organization | [facility] [employer] [facility] [...] Team Providers + +------+ + | Care Residential Nurse Name | Role | Phone | [...] Kirk | | | | | [address] [facility] | [place], [place] | | | | | Health and Healing, | [address] | | | | | Building [address]th | | | | | | Floor [place], [place] | | | | | | [address] | | | | | | [phone] | | | +--------+ + + + [...]
--- OUTSIDE RECORDS SUMMARY | ~2020-05-29 | XMS | Encounter Summary ---
Demographics + + + | Address | [address] | | | [place] [address] | + + + | Home Phone [...] + + + | Author | [place] [employer] [facility] | + + + | Organization | [facility] [employer] [facility] | + [...] Team Providers + +------+ + | Care Snow Ranger Name | Role | Phone | [...] | Headache | | 2005 | | Teec Nos Pos/Ophthalmol | MD Jordin | | | | | leon at [facility] [address] | | | | | | [address] Mailcode: | | | | | | CH11P [facility] | | | | | | Health and Healing, | | | | | | Building | | | | | | Floor [place], [place] | | | | | | [address] | | | | | | [phone] | | | +--------+ + + + [...]
--- OUTSIDE RECORDS SUMMARY | ~2020-05-29 | XMS | Encounter Summary ---
Demographics + + + | Address | [address] | | | [place] [address] | + + + | Home Phone [...] + + + | Author | [place] popexpert Science [facility] | + + + | Organization | [facility] [email or web address] Science [facility] | [...] Team Providers + +------+ + | Care Physical Sciences Instructor Name | Role | Phone | [...] | | Ophthalmology | | Non-[facility] | [place], | | | | | | Epic Dept | Graciela Guardado MD | | | | | | | [address] | | | | | | | [address] | | | | | | | [place], [place] | | | | | | | [address] | | | | | | | Phone: | | | | | | | [phone] | | | | | | | Fax: | | | | | | | [phone] | +--------+--------+ + + + + Encounter Details +--------+---------+ + + + | Date | Type | Department | Care Team | Description | +--------+---------+ + + + | 03/26/ | Office | [facility] | Mo Hood | 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 year old female from [place] : Patient presents with: IIH - Idiopathic [...] because they live 4 hours away in [facility]. Tobacco use: reports that she has [...] Right Left Disc 1+ Optic disc edema, +SPECIAL PROJECTS MANAGER 2+ Optic disc edema, RNFL whitening at the superonasal borde r of the disc. There is spontaneous pulsing of the entire disc head with heart beat. C/D Ratio 0.1 0.1 Macula Normal Normal Vessels Engorged. tortuous Engorged. tortuous Periphery Normal Normal Neuro/Psych Oriented x3: Yes Mood/Affect: Normal See [facility] Ophthalmology Exam Module for additional exam information [...] sheath fenestra tion (by Dr. Hughes at [facility] in 2006) and s/p multiple lumboperitoneal [...] Dr. Lux. Mo Hood MD Resident Physician [facility] [place], PGY-2 [facility] Physician: Mo Hood MD, 03/26/2013 documented [...]
--- OUTSIDE RECORDS SUMMARY | ~2020-05-29 | XMS | Encounter Summary ---
Demographics + + + | Address | [address] | | | [place] [address] | + + + | Home Phone [...] + + + | Author | [place] Oorja Fuel Cells Science [facility] | + + + | Organization | [facility] GLIIF Science [facility] [...] Providers + +------+ + | Care Community Marketing Manager Name | Role | Phone | [...] | | | Ave Mailcode: CH8N | [place], [place] | | | | | [facility] | [address] | | | | | and Healing, | [phone] | | | | | [facility] | | | | | | Floor [place], [place] | | | | | | [address] | | | | | | [phone] | | | +--------+ + + + [...]
--- OUTSIDE RECORDS SUMMARY | ~2020-05-29 | XMS | Encounter Summary ---
Demographics + + + | Address | [address] | | | [place] [address] | + + + | Home Phone [...] + + + | Author | [place] Cognition Therapeutics [facility] | + + + | Organization | [facility] Kickplay [facility] | [...] Team Providers + +------+ + | Care Shrimp Header Name | Role | Phone | [...] | | | | | | [address] [place], [place] | | | | | | [address] | | | | | | [phone] | | | +--------+ + + + [...]
--- OUTSIDE RECORDS SUMMARY | ~2020-05-29 | XMS | Encounter Summary ---
Demographics + + + | Address | [address] | | | [place] [address] | + + + | Home Phone [...] Organization | [facility] | | [...] Team Providers + +------+ + | Care Prn Occupational Therapist Name | Role | Phone | + +------+ + PCP | Unavailable | + +------+ + Encounter Details +--------+ + + + + | Date | Type | Department | Care Team | Description | +--------+ + + + + | 07/24/ | Hospital | [facility] | | | | 1990 | Encounter | [facility] | | | | | | CENTER [address] | | | | | | [place] | | | | | | [address] | | | | | | [phone] | | | +--------+ + + + [...]
--- OUTSIDE RECORDS SUMMARY | ~2020-05-29 | XMS | Encounter Summary ---
Demographics + + + | Address | [address] | | | [place] [address] | + + + | Home Phone [...] | Organization | [facility] [...] + + | 05/25/ | Hospital | [facility] | | | | 1991 | Encounter | [facility] | | | | | | HEALTH [facility] [address] | | | | | | [place], | | | | | | [place] [address] | | | | | | [phone] | | | +--------+ + + + [...]
--- OUTSIDE RECORDS SUMMARY | ~2020-05-29 | XMS | Encounter Summary ---
Demographics + + + | Address | [address] | | | [place] [address] | + + + | Home Phone [...] + + + | Author | [place] AllFacilities Energy Group Science [facility] | + + + | Organization | [facility] Lagou Science [facility] [...] Team Providers + +------+ + | Care Marking Machine Operator Name | Role | Phone | + +------+ + | Brenden Benavides MD | PCP | | + +------+ + Encounter Details +--------+ + + + + | Date | Type | Department | Care Team | Description | +--------+ + + + + | 02/22/ | Telephone | [facility] | Brad Currie MD | | | 2006 | | [place] | | | | | | Neuro-Ophthalmology | | | | | | [address] [facility] | | | | | | Mailcode: PATTI | | | | | | [place] [address] | | | | | | [phone] | | | +--------+ + + + [...]
--- OUTSIDE RECORDS SUMMARY | ~2020-05-29 | XMS | Encounter Summary ---
Demographics + + + | Address | [address] | | | [place] [address] | + + + | Home Phone [...] + + | Author | [place] [employer]ureNet Capital Group Science [facility] | + + + | Organization | [facility] Biotz Science [facility] | + + + | Address | Unknown | + + + | Phone | Unavailable | + + + Support + + +---------+ + | Name | Relationship | Address | Phone | + + +---------+ + | Ruby Au | ECON | Unknown | | + + +---------+ + Care Team Providers + +------+ + | Care Broach Trouble Shooter Name | Role | Phone | + +------+ + | Brenden Benavides MD | PCP | | + +------+ + Encounter Details +--------+ + + + + | Date | Type | Department | Care Team | Description | +--------+ + + + + | 01/05/ | Telephone | [facility] | Brad Currie MD | | | 2006 | | [place] | | | | | | Neuro-Ophthalmology | | | | | | [address] [facility] | | | | | | Mailcode: PATTI | | | | | | [place] [address] | | | | | | [phone] | | | +--------+ + + + [...]
--- OUTSIDE RECORDS SUMMARY | ~2020-05-29 | XMS | Encounter Summary ---
Demographics + + + | Address | [address] | | | [place] [address] | + + + | Home Phone [...] + + | Author | [place] TransactionTree Science [facility] | + + + | Organization | [facility] Alumnize [facility] | + + [...] Providers + +------+ + | Care Graduate Intern Name | Role | Phone | [...] | | | | | | | [place] | | | | | | | [id number] | | | | | | | [facility] | | | | | | | [place], | | | | | | | [place] [address] | | | | | | | Phone: | | | | | | | [phone] | +--------+--------+ + + + + Encounter Details +--------+ + + + + | Date | Type | Department | Care Team | Description | +--------+ + + + + | 08/01/ | Hospital | [facility] [address] | Sam Pedroza MD | | | 2007 - | Encounter | [place] | [address] | | | | | [id number] [facility] | [place], [place] | | | 08/02/ | | HOSPITAL [place], | [address] | | | 2007 | | [place] [address] | [phone] | | | | | [phone] | | | +--------+ + + + [...] in 2 weeks, please call for appointment: [phone] Condition On Discharge: Vital Signs at discharge [...] in 2 weeks, please call for appointment: [phone] Condition On Discharge: Vital Signs at discharge [...] Mode of Transportation: Car Accompanied by: Family/Responsible Constitution Party Discharge Nurse: Anni Oliva Date: 08/02/2008 [...] independently, has no ADL needs and [facility] Dr. Pedroza agreed that she would not need therapies. Spoke with RN who endorses that pt has been up independently last pm and this am. OT to sign off at this time. Yessenia Nowak, OTR/ L [address]005 Tomasz Caldera Md - 02/2008 11:08 AM [...] | | + +---------+ + + | [facility] DEPARTMENT OF | | | | | RADIOLOGY | | | | + +---------+ + + OPERATION RECORD (08/01/2008 12:00 AM PDT) + + + | Narrative | Performed At | + + + | [id number] | | | [id number] | | | [place] [id number] Date: | | | 08/01/2008 Attending Surgeon: | | | Sam Pedroza M.D. Drug And Alcohol Treatment Specialist(s): | | | Tomasz Rice M.D. | [...] | tonsils and then gently incised. A Dassel 4 was then easily fed | | [...] | | | Pooja Pedroza M.D. / [id number] / | | | [id number] / [id number] / | | + + + + + | Procedure Note | + + | Krystal Rushing, Tomasz - 08/01/2008 12:00 AM PDT [id number] | | [id number] [place] | | [id number] Date: 08/01/2008 Attending Surgeon: Sam | | Pooja Pedroza Drug And Alcohol Treatment Specialist(s): Tomasz Rice M.D. | | Palomo Jansen [...] tonsils and | | thengently incised. A Dassel 4 was then easily fed through it, [...] Sam Pedroza M.D. KG / | | [id number] / [id number] / [id number] / T: 08/02/2008 | |dripping from the [...] tonsils and then | |gently incised. A Dassel 4 was then easily fed through it, [...] | | | |KG / HS | |[id number] / [id number] / [id number] / | | | | | | | | | | | | | | | | | | | | | + + TEACHING PHYSICIAN (08/01/2008 12:00 AM PDT) + + + | Narrative | Performed At | + + + | [id number] | | | [id number] | | | [place] [id number] | | | Date: 08/01/2008 Attending Surgeon: | | | Sam Pedroza M.D. Drug And Alcohol Treatment Specialist(s): | | | Tomasz Rice M.D. | [...] | | | Pooja Pedroza / LANETTE [id number] / [id number] / [id number] / [id number] D: | | | 08/01/2008 | | + + + + + | Procedure Note | + + | Sam Pedroza MD - 08/01/2008 12:00 AM PDT [id number] | | [id number] [place] | | [id number] Date: 08/01/2008ttending Surgeon: Sam | | Pooja Pedroza Drug And Alcohol Treatment Specialist(s): Tomasz Rice M.D. | | Palomo Jansen [...] | Bisi. Sam Pedroza M.D. AD / [id number] / [id number] / [id number] / [id number]: | | 08/01/2008T: 08/01/2008 | | | [...] | | | |AD / HS | |[id number] / [id number] / [id number] / 30126 | | | | | | | [...]
--- OUTSIDE RECORDS SUMMARY | ~2020-05-29 | XMS | Encounter Summary ---
Demographics + + + | Address | [address] | | | [place] [address] | + + + | Home Phone [...] + + + | Author | [place] Juntines Science [facility] | + + + | Organization | [facility] Sonexa Therapeutics [facility] | + + + | Address | Unknown | + + + | Phone | Unavailable | + + + Support + + +---------+ + | Name | Relationship | Address | Phone | + + +---------+ + | Ruby Au | ECON | Unknown | | + + +---------+ + Care Team Providers + +------+ + | Care Station Installer And Repairer Name | Role | Phone | [...] | | | | | Physician's | [place], [place] | | | | | [place], [facility] floor | [address] | | | | | [place], [place] | [phone] | | | | | [address] | | | | | | [phone] | | | +--------+ + + + [...]
--- OUTSIDE RECORDS SUMMARY | ~2020-05-29 | XMS | Encounter Summary ---
Demographics + + + | Address | [address] | | | [place] [address] | + + + | Home Phone [...] + + + | Author | [place] Mozilla Science [facility] | + + + | Organization | [facility] Berkshire Films Science [facility] | [...] Team Providers + +------+ + | Care Heavy Forger Name | Role | Phone | + [...] Letter From | | 2007 | | [facility] | [address] | Specialist | | | | and Healing [address] | [place], [place] | | | | | [address] Mailcode: | [address] | | | | | CH8N [facility] | [phone] | | | | | Health and Healing, | | | | | | [facility] | | | | | | Floor [facility] [place] | | | | | | [address] | | | | | | [phone] | | | +--------+ + + + [...]
--- OUTSIDE RECORDS SUMMARY | ~2020-05-29 | XMS | Encounter Summary ---
Demographics + + + | Address | [address] | | | [place] [address] | + + + | Home Phone [...] + + + | Author | [place] Prixing Science [facility] | + + + | Organization | [facility] GridNetworks Science [facility] | [...] Team Providers + +------+ + | Care Piece Cutter Name | Role | Phone | + +------+ + | Pedro Luis Sams MD | PCP | | + +------+ + Encounter Details +--------+ + + + + | Date | Type | Department | Care Team | Description | +--------+ + + + + | 08/31/ | Telephone | [facility] | Leticia Pitts MD | | | 2010 | | [place]/Ophthalmol | | | | | | leon at [facility] [address] | | | | | | [address] Mailcode: | | | | | | CH11P Center for | | | | | | Health and Healing, | | | | | | [facility] | | | | | | Floor [place], [place] | | | | | | [address] | | | | | | [phone] | | | +--------+ + + + [...]
--- OUTSIDE RECORDS SUMMARY | ~2020-05-29 | XMS | Encounter Summary ---
Demographics + + + | Address | [address] | | | [place] [address] | + + + | Home Phone [...] + + + | Author | [place] GeMeTec Metrology Science [facility] | + + + | Organization | [facility] Bocada Science [facility] | + [...] Team Providers + +------+ + | Care Cage Shift Manager Name | Role | Phone | [...] | | | Ave Mailcode: CH8N | [place], [place] | | | | | [facility] | [address] | | | | | and Healing, | [phone] | | | | | [facility] | | | | | | Floor [place], [place] | | | | | | [address] | | | | | | [phone] | | | +--------+ + + + [...]
--- OUTSIDE RECORDS SUMMARY | ~2020-05-29 | XMS | Encounter Summary ---
Demographics + + + | Address | [address] | | | [place] [address] | + + + | Home Phone [...] + + + | Author | [place] [employer] [facility] | + + + | Organization | [facility] [...] Team Providers + +------+ + | Care Tax Services Specialist Name | Role | Phone [...] | | | Ave Mailcode: CH8N | [place], [place] | | | | | [facility] | [address] | | | | | and Healing, | [phone] | | | | | [facility] | | | | | | Floor [place], [place] | | | | | | [address] | | | | | | [phone] | | | +--------+---------+ + + + [...]
--- OUTSIDE RECORDS SUMMARY | ~2020-05-29 | XMS | Encounter Summary ---
Demographics + + + | Address | [address] | | | [place] [address] | + + + | Home Phone [...] | Organization | [facility] | | | and [place] [...] Team Providers + +------+ + | Care Dyslexia Teacher Name | Role | Phone | + +------+ + PCP | Unavailable | + +------+ + Encounter Details +--------+ + + + + | Date | Type | Department | Care Team | Description | +--------+ + + + + | 06/10/ | Hospital | [facility] | | | | 1991 | Encounter | [facility] | | | | | | HEALTH [address] | | | | | | [place], | | | | | | [place] [address] | | | | | | [phone] | | | +--------+ + + + [...]
--- OUTSIDE RECORDS SUMMARY | ~2020-05-29 | XMS | Encounter Summary ---
Demographics + + + | Address | [address] | | | [place] [address] | + + + | Home Phone [...] + + + | Author | [place] [employer] [facility] | + + + | Organization | [facility] | + + + | Address | Unknown | + + + | Phone | Unavailable | + + + Support + + +---------+ + | Name | Relationship | Address | Phone | + + +---------+ + | Ruby Au | ECON | Unknown | | + + +---------+ + Care Team Providers + +------+ + | Care Placement Manager Name | Role | Phone | [...] Cerebri; | | 2006 | Visit | [place]/Ophthalmol | | Papilledema | | | | ogy at [facility] [address] | | Associated with | | | | [address] Mailcode: | | Increased | | | | CH11P Center for | | Intracranial | | | | Health and Healing, | | Pressure; Transient | | | | Building | | Visual Loss | | | | Floor [place], [place] | | | | | | [address] | | | | | | [phone] | | | +--------+---------+ + + + [...] HPI: 31 y.o. year old female from [place] : Patient presents with: Transient visual [...] seconds; these occur 2-3 x per w [place]. Hobbies: Tobacco use: reports that she has [...] patient to continue follow-up for [facility]ued[facility]umor w [facility] neuro-ophth. Follow up at [facility] prn new symptoms or complaints. WADE [...]
--- OUTSIDE RECORDS SUMMARY | ~2020-05-29 | XMS | Encounter Summary ---
Demographics + + + | Address | [address] | | | [place] [address] | + + + | Home Phone [...] + + + | Author | [place] [employer] [facility] | + + + | Organization | [facility] [employer] [facility] | + + + | Address | Unknown | + + + | Phone | Unavailable | + + + Support + + +---------+ + | Name | Relationship | Address | Phone | + + +---------+ + | Ruby Au | ECON | Unknown | | + + +---------+ + Care Team Providers + +------+ + | Care Web Pressman Name | Role | Phone | + +------+ + | Dennis Maddox | PCP | | + +------+ + Encounter Details +--------+ + + + + | Date | Type | Department | Care Team | Description | +--------+ + + + + | 02/28/ | Emergency | [facility] Emergency | | | | 2013 - | | Department [address] | | | | | [address] | | | | 03/01/ | | [facility] | | | | 2013 | | [place], [place] | | | | | | [address] | | | | | | [phone] | | | +--------+ + + + [...]
--- OUTSIDE RECORDS SUMMARY | ~2020-05-29 | XMS | Encounter Summary ---
Demographics + + + | Address | [address] | | | [place] [address] | + + + | Home Phone [...] + + | Author | [place] [employer] [facility] | + + + | Organization | [facility] [employer] [facility] | + + + | Address | Unknown | + + + | Phone | Unavailable | + + + Support + + +---------+ + | Name | Relationship | Address | Phone | + + +---------+ + | Ruby Au | ECON | Unknown | | + + +---------+ + Care Team Providers + +------+ + | Care Radio Repairer Domestic Name | Role | Phone | + [...] | | | | | | [address] | | | | | | | [facility] | | | | | | | [place], | | | | | | | [address] [place] [address] | | | | | | | [place], [place] | | | | | | | [address] Phone: | | | | | | | [phone] | | | | | | | Fax: | | | | | | | [phone] | +--------+--------+ + + + + Encounter Details +--------+ + + + + | Date | Type | Department | Care Team | Description | +--------+ + + + + | 03/26/ | Procedure | [facility] | | Visual field testing | | 2012 | | [facility] | | | | | | Lopez at [facility] [address] | | | | [address] | | | | | | Mailcode: CH11P | | | | | | [facility] | | | | | | and Healing, | | | | | | | | | | | | [place], [place] | | | | | | [address] | | | | | | [phone] | | | +--------+ + + + [...] PDT Annabella Au was seen in the [facility] [place] [facility] Department today, 2012, for 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 documented in this encounter Plan of Treatment Not on filedocumented as of this encounter Procedures + +--------+ + + + | Procedure Name | Priori | Date/Time | Associated Diagnosis | Comments | | | ty | | | | + +--------+ + + + | [place] VISUAL FIELD | Routin | 03/26/2013 | [...]
--- OUTSIDE RECORDS SUMMARY | ~2020-05-29 | XMS | Encounter Summary ---
Demographics + + + | Address | [address] | | | [place] [address] | + + + | Home Phone [...] + + | Author | [place] [employer] [facility] | + + + | Organization | [facility] [employer] [facility] | + + + | Address | Unknown | + + + | Phone | Unavailable | + + + Support + + +---------+ + | Name | Relationship | Address | Phone | + + +---------+ + | Ruby Au | ECON | Unknown | | + + +---------+ + Care Team Providers + +------+ + | Care Control Tower Radio Operator Name | Role | Phone | [...] | | | | [address] | [facility], | | | | | | [place], [place] | 10th Floor | | | | | | [address] | [place], [place] | | | | | | Phone: | [address] | | | | | | [phone] | Phone: | | | | | | Fax: | [phone] | | | | | | [phone] | Fax: | | | | | | | [phone] | +--------+--------+ + + + + Reason [...] Sky Maloney | | | | | [facility] | [place], [place] | | | | | [place], [place] | [address] | | | | | [address] | [phone] | | | | | [phone] | | | | | | | [...] was a malfunction in your shunt. The direct marketing specialist recommends you taking Diomox again and follow up in 1 week at [facility] [place]. Please follow up with your doctor. Rest, [...] + + + | [facility] | [address] | [place], [place] | | | [facility] | [address] | [address] | | | TESTS | | | [...] + + + + + | [facility] | [address] | [place] [address] | | | SERVICES, CORE | SKY [...] | | | | | CHRISTIANO TORRES ([id number]) | | | | | | on [...] view image for the detailed interpretation from Therative results. | CARDIOLOGY | + + + + + + + + | Performing | Address | City/State/Zipcode | Phone Number | | Organization | | | | + + + + + | [facility] | [address] | [place], [place] | | | CARDIOLOGY | [address] | [address] | | + + + + + [...] [facility] | [address] | [place], [place] | | | [facility] OF CARE | [facility] | [address] | | | TESTS | | | [...] [facility] | [address] | [place] [address] | | | SERVICES, CORE | PARK [...] | [facility] The[facility]rics | [address] [facility] | [place] [address] | | | SERVICES, CORE | SKY [...] | | | LABORATORY | | | BRUNEIAN | | | SERVICES, | | | [...] [facility] | [address] | [place] [address] | | | SERVICES, CORE | PARK [...] | + + + + + | [facility] | [address] | [place] [address] | | | SERVICES, CORE | SKY [...] + | [place] - AIRPORT - | [address] | [place] [address] | | | [place] | | | | + + + + + RAINBOW HOLD TUBE - RED TOP (03/13/2013 11:52 AM PDT) + + | Specimen | + + | Blood - Blood | + + + + + + + | Performing | Address | City/State/Zipcode | Phone Number | | Organization | | | | + + + + + | [facility] | [address] | [place] [address] | | | SERVICES, CORE | SKY [...]
--- OUTSIDE RECORDS SUMMARY | ~2020-05-29 | XMS | Encounter Summary ---
Demographics + + + | Address | [address] | | | [place] [address] | + + + | Home Phone [...] + + + | Author | [place] [employer] [facility] | + + + | Organization | [facility] [employer] [facility] | + + + | Address | Unknown | + + + | Phone | Unavailable | + + + Support + + +---------+ + | Name | Relationship | Address | Phone | + + +---------+ + | Ruby Au | ECON | Unknown | | + + +---------+ + Care Team Providers + +------+ + | Care Dumper Bulk System Name | Role | Phone | + [...] | | | Ave Mailcode: CH8N | [place], [place] | | | | | [facility] | [address] | | | | | and Healing, | [phone] | | | | | [facility] | | | | | | Floor [place], [place] | | | | | | [address] | | | | | | [phone] | | | +--------+ + + + [...]
--- OUTSIDE RECORDS SUMMARY | ~2020-05-29 | XMS | Encounter Summary ---
Demographics + + + | Address | [address] | | | [place] [address] | + + + | Home Phone [...] + + + | Author | [place] [employer] [facility] | + + + | Organization | [facility] [employer] [facility] | + [...] Team Providers + +------+ + | Care Biometrics Consultant Name | Role | Phone | + +------+ + | Brenden Benavides MD | PCP | | + +------+ + Encounter Details +--------+ + + + + | Date | Type | Department | Care Team | Description | +--------+ + + + + | 02/22/ | Telephone | [facility] | Brad Currie MD | | | 2006 | | [place] | | | | | | Neuro-Ophthalmology | | | | | | [address] [facility] | | | | | | Mailcode: PATTI | | | | | | [place] [address] | | | | | | [phone] | | | +--------+ + + + [...]
--- OUTSIDE RECORDS SUMMARY | ~2020-05-29 | XMS | Encounter Summary ---
Demographics + + + | Address | [address] | | | [place] [address] | + + + | Home Phone [...] + + + | Author | [place] [employer] [facility] | + + + | Organization | [facility] [employer] Royal[employer] [facility] | + [...] Providers + +------+ + | Care Hand Edger Name | Role | Phone | + [...] | | | Ave Mailcode: CH8N | [place], [place] | | | | | [facility] | [address] | | | | | and Healing, | [phone] | | | | | [facility] | | | | | | Floor [place], [place] | | | | | | [address] | | | | | | [phone] | | | +--------+ + + + [...]
--- OUTSIDE RECORDS SUMMARY | ~2020-05-29 | XMS | Encounter Summary ---
Demographics + + + | Address | [address] | | | [place] [address] | + + + | Home Phone [...] + + + | Author | [place] Thoughtful Movers [facility] | + + + | Organization | [facility] [employer] [facility] [...] Team Providers + +------+ + | Care Herbicide Service Sales Representative Name | Role | Phone [...] ) | | | | Physician's | [place], [place] | | | | | Pavilion, 2nd floor | [address] | | | | | [place], [place] | [phone] | | | | | [address] | | | | | | [phone] | | | +--------+ + + + [...]
--- OUTSIDE RECORDS SUMMARY | ~2020-05-29 | XMS | Encounter Summary ---
Demographics + + + | Address | [address] | | | [place] [address] | + + + | Home Phone [...] + + + | Author | [place] [employer] Science [facility] | + + + | Organization | [facility] [employer] [facility] [...] Team Providers + +------+ + | Care Automatic Trimming Sewer Name | Role | Phone | [...] Cerebri | | 2006 | Visit | [place] | | (Primary Dx) | | | | Neuro-Ophthalmology | | | | | | [address] [facility] | | | | | | Mailcode: PATTI | | | | | | [place] [address] | | | | | | [phone] | | | +--------+---------+ + + + [...] documented as of this encounter Progress Notes [place]sterburgBrad - 11/30/2006 11:58 AM PSTFormatting of this [...] Brad Currie MD Neuro-Ophthalmology and Cerebrovascular Disease Telescope Operator of Ophthalmology, Neurology, and Neurosurgery documented [...]
--- OUTSIDE RECORDS SUMMARY | ~2020-05-29 | XMS | Encounter Summary ---
Demographics + + + | Address | [address] | | | [place] [address] | + + + | Home Phone [...] + + + | Author | [place] Clear Water Outdoor [facility] | + + + | Organization | [facility] [employer]er Mouldings [facility] | + + + | Address | Unknown | + + + | Phone | Unavailable | + + + Support + + +---------+ + | Name | Relationship | Address | Phone | + + +---------+ + | Ruby Au | ECON | Unknown | | + + +---------+ + Care Team Providers + +------+ + | Care Echo Technologist Name | Role | Phone | [...] | | | | and Healing, | [place], [place] | | | | | Building | [address] | | | | | Floor [place], [place] | | | | | | [address] | | | | | | [phone] | | | +--------+---------+ + + + [...]
--- OUTSIDE RECORDS SUMMARY | ~2020-05-29 | XMS | Encounter Summary ---
Demographics + + + | Address | [address] | | | [place] [address] | + + + | Home Phone [...] + | Organization | [facility] | | [...] Team Providers + +------+ + | Care Accounting Office Manager Name | Role | Phone | + +------+ + PCP | Unavailable | + +------+ + Encounter Details +--------+ + + + + | Date | Type | Department | Care Team | Description | +--------+ + + + + | 06/22/ | Hospital | [facility] | Yovanny Suazo, | | | 1991 | Encounter | [facility] | MD [address] | | | | | [facility] [address] | [address] | | | | | [place], | [place] [address] | | | | | [place] [address] | [phone] | | | | | [phone] | | | +--------+ + + + [...]
--- OUTSIDE RECORDS SUMMARY | ~2020-05-29 | XMS | Encounter Summary ---
Demographics + + + | Address | [address] | | | [place] [address] | + + + | Home Phone [...] [facility] [...] Team Providers + +------+ + | Care Records Officer Name | Role | Phone | + +------+ + PCP | Unavailable | + +------+ + Encounter Details +--------+ + + + + | Date | Type | Department | Care Team | Description | +--------+ + + + + | 09/07/ | Hospital | [facility] | | | | 1991 | Encounter | MED CTR [facility] | | | | | | CENTER [address] | | | | | | [place] | | | | | | [address] | | | | | | [phone] | | | +--------+ + + + [...]
--- OUTSIDE RECORDS SUMMARY | ~2020-05-29 | XMS | Encounter Summary ---
Demographics + + + | Address | [address] | | | [place] [address] | + + + | Home Phone [...] + + + | Author | [place] [employer]id2Save [facility] | + + + | Organization | [facility] [employer]UCUN [facility] | + + + | Address | Unknown | + + + | Phone | Unavailable | + + + Support + + +---------+ + | Name | Relationship | Address | Phone | + + +---------+ + | Ruby Au | ECON | Unknown | | + + +---------+ + Care Team Providers + +------+ + | Care Shop Helper Name | Role | Phone | + +------+ + | Dennis Maddox | PCP | | + +------+ + Encounter Details +--------+ + + + + | Date | Type | Department | Care Team | Description | +--------+ + + + + | 03/15/ | Telephone | [facility] | Ronaldo Martin MD | | | 2012 | | [place]/Ophthalmol | [facility] [place] | | | | | leon at [facility] [address] | [address] [place] [address] | | | | | Gianluca Kirk Mailcode: | [place] [address] | | | | | CH11P [facility] | [phone] | | | | | Health and Healing, | | | | | | | | | | | | [place], [place] | | | | | | [address] | | | | | | [phone] | | | +--------+ + + + [...]
--- OUTSIDE RECORDS SUMMARY | ~2020-05-29 | XMS | Encounter Summary ---
Demographics + + + | Address | [address] | | | [place] [address] | + + + | Home Phone [...] + + + | Author | [place] [employer] [facility] | + + + | Organization | [facility] [employer] [facility] [...] Team Providers + +------+ + | Care Lab Animal Technologist Name | Role | Phone | [...] | | | Ave Mailcode: CH8N | [place], [place] | | | | | [facility] | [address] | | | | | and Healing, | [phone] | | | | | [facility] | | | | | | Floor [place], [place] | | | | | | [address] | | | | | | [phone] | | | +--------+ + + + [...]
--- OUTSIDE RECORDS SUMMARY | ~2020-05-29 | XMS | Encounter Summary ---
Demographics + + + | Address | [address] | | | [place] [address] | + + + | Home Phone [...] + + + | Author | [place] [employer] [facility] | + + + | Organization | [facility] [employer] [facility] | + + + | Address | Unknown | + + + | Phone | Unavailable | + + + Support + + +---------+ + | Name | Relationship | Address | Phone | + + +---------+ + | Ruby Au | ECON | Unknown | | + + +---------+ + Care Team Providers + +------+ + | Care Basket Maker Name | Role | Phone | [...] Cerebri | | 2006 | Visit | [place] | [address] | (Primary Dx) | | | | Oculoplastics at | [place], [place] | | | | | [address] | [address] | | | | | [address] | [phone] | | | | | [facility] | | | | | | [facility], [address] [place] [address] | | | | | | [place] [address] | | | | | | [phone] | | | +--------+---------+ + + + [...]
--- OUTSIDE RECORDS SUMMARY | ~2020-05-29 | XMS | Encounter Summary ---
Demographics + + + | Address | [address] | | | [place] [address] | + + + | Home Phone [...] + | Organization | [facility] | | | [...] Team Providers + +------+ + | Care Counter Help Name | Role | Phone | + +------+ + PCP | Unavailable | + +------+ + Encounter Details +--------+ + + + + | Date | Type | Department | Care Team | Description | +--------+ + + + + | 03/03/ | Emergency | [facility] | Artis Reyes DO | Pain, abdominal, | | 2012 | | MEDICAL CENTER | [address] | unknown etiology | | | | EMERGENCY CENTER | [place], [place] | | | | | [address] [facility] | [address] | | | | | [place], [place] | [phone] | | | | | [address] | | | | | | [phone] | | | +--------+ + + + [...] 03/03/132032 Date of Service: 03/03/132032 Status: Signed Ventilating Equipment Installer: Jovanny Collado RN (Registered Nurse) Dr. Reyes @ BS Jovanny Collado RN 03/03/132032 onver ludwin Transaction, Provider Unknown - 03/03/2013 6:56 PM PDT ED Notes by Jovanny Collado RN at 03/03/131855 Author: Jovanny Collado RN Service: (none) Author Type: Registered Nurse Filed: 03/03/131855 Date of Service: 03/03/131855 Status: Signed Ventilating Equipment Installer: Jovanny Collado RN (Registered Nurse) Dr. Reyes @ BS Jovanny Collado RN 03/03/131855 rtis Reyes DO - 03/03/2013 6:55 PM PDTFormatting of this note might be different from the or iginal. ED Provider Notes by Artis Reyes DO at 03/03/131854 Author: Artis Reyes DO Service: (none) Author Type: Physician Filed: 03/04/132236 Date of Service: 03/03/131854 Status: Signed Ventilating Equipment Installer: Artis Reyes DO (Physician) [facility] Department of Emergency Medicine 6:55 PM [...] cholecystectomy, appendectomy, and one . PCP: [facility] Past Medical History Diagnosis Date Diabetes mellitus [...] sore throat CV/Resp: Negative for chest pain, cxgyeadat-ls-tfpnni, cough GI: Negative for diarrhea Positive for [...] plan. Records Reviewed Nursing notes. No previous [facility] ED visits available in [facility] for review. Laboratory Evaluation Results Procedure Component Value Ref Range Date/Time Comprehensive metabolic panel [[id number]] (Abnormal) Collected:03/03/131922 Order Status:Completed Updated:03/03/131953 Specimen Information:Blood [...] 65 U/L EGFR >60 >60 mL/min/1.73m2 Lipase [[id number]] Collected:03/03/131922 Order Status:Completed Updated:03/03/131953 Specimen Information:Blood LIPASE 177 73 - 393 U/L Urine test (LAB) [[id number]] Collected:03/03/131939 Order Status:Completed Updated:03/03/131950 Specimen Information:Urine Preg Test, Ur NEGATIVE POC clinitek 10 [[id number]] (Abnormal) Collected:03/03/131940 Order Status:Completed Updated:03/03/131943 Color, UA [...] WBC, UA NEGATIVE NEGATIVE CBC with differential [[id number]] Collected:03/03/131922 Order Status:Completed Updated:03/03/131935 Specimen Information:Blood WBC [...] Follow up With Details Comments Contact Info [facility] As needed [address] [place] [address] [facility] EMERGENCY DEPARTMENT If symptoms worsen [facility] [address] Discharge Medications: New Prescriptions DICYCLOMINE (BENTYL) 20 [...]
--- OUTSIDE RECORDS SUMMARY | ~2020-05-29 | XMS | Encounter Summary ---
Demographics + + + | Address | [address] | | | [place] [address] | + + + | Home Phone [...] + + + | Author | [place] [employer] [facility] | + + + | Organization | [facility] [employer] [facility] [...] Providers + +------+ + | Care Sales Financial Analyst Name | Role | Phone | [...] Erroneous Encounter | | 2007 | | [place] [facility] | [place] [facility] | - Disregard | | | | and Healing [address] | Neurosurgery [address] | | | | | [address] Mailcode: | [address] | | | | | CH[address] Center for | [place], [place] | | | | | Health and Healing, | [address] | | | | | Building 1, 8th | | | | | | Floor [place], [place] | | | | | | [address] | | | | | | [phone] | | | +--------+ + + + [...]
--- OUTSIDE RECORDS SUMMARY | ~2020-05-29 | XMS | Encounter Summary ---
Demographics + + + | Address | [address] | | | [place] [address] | + + + | Home Phone [...] + + + | Author | [place] [employer] [facility] | + + + | Organization | Counts Include [address] [facility] [employer] [facility] | + [...] Providers + +------+ + | Care Project Program Manager Name | Role | Phone | [...] Rd | | | | | | [place], [place] | | | | | | [address] | | | +--------+ + + + [...]
--- OUTSIDE RECORDS SUMMARY | ~2020-05-29 | XMS | Encounter Summary ---
Demographics + + + | Address | [address] | | | [place] [address] | + + + | Home Phone [...] + + | Author | [place] [employer]ley [employer] [facility] | + + + | Organization | [facility] [employer] [facility] | + + + | Address | Unknown | + + + | Phone | Unavailable | + + + Support + + +---------+ + | Name | Relationship | Address | Phone | + + +---------+ + | Ruby Au | ECON | Unknown | | + + +---------+ + Care Team Providers + +------+ + | Care Pre Press Proofer Name | Role | Phone | + [...] Cerebri | | 2006 | Visit | [place] | | | | | | Photography at | | | | | | [address] | | | | | | [address] | | | | | | Eye [place], 4th | | | | | | floor [place], [place] | | | | | | [address] | | | +--------+---------+ + + + [...] PM DINOAnnabella Au was seen in the [place] [facility] [place] [facility]/Ultrasound Department today, 11/30/2006, for ultrasound OU [...]
--- OUTSIDE RECORDS SUMMARY | ~2020-05-29 | XMS | Encounter Summary ---
Demographics + + + | Address | [address] | | | [place] [address] | + + + | Home Phone [...] + + + | Author | [place] [employer] [facility] | + + + | Organization | [facility] [employer] [facility] [...] Team Providers + +------+ + | Care Traffic Observer Name | Role | Phone | [...] | CH8N [facility] | [place], [place] | | | | | Health and Healing, | [address] | | | | | Building 1, 8th | | | | | | Floor [place], [place] | | | | | | [address] | | | | | | [phone] | | | +--------+ + + + [...]
--- OUTSIDE RECORDS SUMMARY | ~2020-05-29 | XMS | Encounter Summary ---
Demographics + + + | Address | [address] | | | [place] [address] | + + + | Home Phone [...] + + + | Author | [place] [employer] [facility] | + + + | Organization | [facility] [employer] [facility] [...] Team Providers + +------+ + | Care Document Management Technician Name | Role | Phone | [...] Cerebri | | 2006 | Visit | [place] | | (Primary Dx) | | | | Neuro-Ophthalmology | | | | | | [address] [facility] | | | | | | Mailcode: PATTI | | | | | | [place] [address] | | | | | | [phone] | | | +--------+---------+ + + + [...] Referred by: CASIMIRO PAYTON MD [address] [place] [address] Symptoms: Patient feels things are better. Vision [...] Brad Currie MD Neuro-Ophthalmology and Cerebrovascular Disease Box Toe Flanger Stitchdowns of Ophthalmology, Neurology, and Neurosurgery documented in [...]
--- OUTSIDE RECORDS SUMMARY | ~2020-05-29 | XMS | Encounter Summary ---
Demographics + + + | Address | [address] | | | [place] [address] | + + + | Home Phone [...] + + + | Author | [place] [employer] [facility] | + + + | Organization | [facility] [employer] [facility] | + + [...] Providers + +------+ + | Care Gas Regulator Repairer Helper Name | Role | Phone [...] | | | Ave Mailcode: CH8N | [place], [place] | | | | | [facility] | [address] | | | | | and Healing, | [phone] | | | | | [facility] | | | | | | Floor [place], [place] | | | | | | [address] | | | | | | [phone] | | | +--------+---------+ + + + [...] wanted to have LP shunt instead of MANUFACTURING TEST ENGINEER shunt because she d oes not [...]
--- OUTSIDE RECORDS SUMMARY | ~2020-05-29 | XMS | Encounter Summary ---
Demographics + + + | Address | [address] | | | [place] [address] | + + + | Home Phone [...] | Organization | [facility] | | | and [...] Providers + +------+ + | Care Supervisor Lending Activities Name | Role | Phone | + +------+ + PCP | Unavailable | + +------+ + Encounter Details +--------+ + + + + | Date | Type | Department | Care Team | Description | +--------+ + + + + | 09/30/ | Hospital | [facility] | | | | 1990 | Encounter | MED CTR EMERGENCY | | | | | | CENTER [address] | | | | | | [place] | | | | | | [address] | | | | | | [phone] | | | +--------+ + + + [...]
--- OUTSIDE RECORDS SUMMARY | ~2020-05-29 | XMS | Encounter Summary ---
Demographics + + + | Address | [address] | | | [place] [address] | + + + | Home Phone [...] + + | Author | [place] [employer] [facility] | + + + | Organization | [facility] [employer] [facility] | [...] Team Providers + +------+ + | Care Port Steward Name | Role | Phone | [...] [facility] | [place], [place] | | | | | Health and Healing, | [address] | | | | | Building | | | | | | Floor [place], [place] | | | | | | [address] | | | | | | [phone] | | | +--------+--------+ + + + [...]
--- OUTSIDE RECORDS SUMMARY | ~2020-05-29 | XMS | Encounter Summary ---
Demographics + + + | Address | [address] | | | [place] [address] | + + + | Home Phone [...] + + + | Author | [place] [employer] [facility] | + + + | Organization | [facility] [employer] [facility] | + + [...] + +------+ + | Care Blood Bank Booking Clerk Name | Role | Phone | [...] | | | | | hypertension | [place], [place] | [place], [place] | | | | | Procedures | [address] | [address] | | | | | REQUEST TO | Phone: | Phone: | | | | | SURGERY | [phone] | [phone] | | | | | MECHANICAL DESIGN ENGINEER FACILITIES | Fax: | Fax: | | | | | [place] [facility] | [phone] | [phone] | | | | | SPINAL | [...] | | | Ave Mailcode: CH8N | [place], [place] | | | | | [facility] | [address] | | | | | and [place], | [phone] | | | | | [facility] | | | | | | Floor [place], [place] | | | | | | [address] | | | | | | [phone] | | | +--------+ + + + [...]
--- OUTSIDE RECORDS SUMMARY | ~2020-05-29 | XMS | Encounter Summary ---
Demographics + + + | Address | [address] | | | [place] [address] | + + + | Home Phone [...] Organization | [facility] | | [...] Team Providers + +------+ + | Care Roving Weight Gauger Name | Role | Phone | + +------+ + PCP | Unavailable | + +------+ + Encounter Details +--------+ + + + + | Date | Type | Department | Care Team | Description | +--------+ + + + + | 10/14/ | Hospital | [facility] | | | | 1991 | Encounter | MED CTR WOMENS | | | | | | HEALTH [facility] [address] | | | | | | [place], | | | | | | [place] [address] | | | | | | [phone] | | | +--------+ + + + [...]
--- OUTSIDE RECORDS SUMMARY | ~2020-05-29 | XMS | Encounter Summary ---
Demographics + + + | Address | [address] | | | [place] [address] | + + + | Home Phone [...] + + + | Author | [place] [employer] [facility] | + + + | Organization | [facility] [employer] [facility] [...] Providers + +------+ + | Care Supervisor Joiners Name | Role | Phone | + [...] | Headache | | 2005 | | [place]/Ophthalmol | MD Jordin | | | | | leon at [facility] [address] | | | | | | [address] [place] Mailcode: | | | | | | CH11P [facility] | | | | | | Health and Healing, | | | | | | Building | | | | | | Floor [place], [place] | | | | | | [address] | | | | | | [phone] | | | +--------+ + + + [...]
--- OUTSIDE RECORDS SUMMARY | ~2020-05-29 | XMS | Encounter Summary ---
Demographics + + + | Address | [address] | | | [place] [address] | + + + | Home Phone [...] + + + | Author | [place] [employer] [facility] | + + + | Organization | [facility] [employer] [facility] [...] Team Providers + +------+ + | Care News Videographer Name | Role | Phone | + [...] Care Coordination | | 2018 | | Adel | MD [address] | | | | | Neuro-Ophthalmology | [facility] [place] | | | | | at [facility] [address] | [address] | | | | | Ave Mailcode: CH3G | [phone] | | | | | [facility] | | | | | | and Healing, | | | | | | Building | | | | | | Floor [place], [place] | | | | | | [address] | | | | | | [phone] | | | +--------+ + + + [...]
--- OUTSIDE RECORDS SUMMARY | ~2020-05-29 | XMS | Encounter Summary ---
Demographics + + + | Address | [address] | | | [place] [address] | + + + | Home Phone [...] + + + | Author | [place] [employer] [facility] | + + + | Organization | [facility] [employer] [facility] | + + + | Address | Unknown | + + + | Phone | Unavailable | + + + Support + + +---------+ + | Name | Relationship | Address | Phone | + + +---------+ + | Ruby Au | ECON | Unknown | | + + +---------+ + Care Team Providers + +------+ + | Care Brake Press Operator Name | Role | Phone | + +------+ + | Brenden Benavides MD | PCP | | + +------+ + Encounter Details +--------+ + + + + | Date | Type | Department | Care Team | Description | +--------+ + + + + | 02/22/ | Telephone | [facility] | Hay Hughes MD [address] | | | 2006 | | Equality | [place] | | | | | Oculoplastics at | [place], [place] | | | | | [address] | [address] | | | | | [address] | [phone] | | | | | Eye [facility]ality | | | | | | [address] | | | | | | [place] [address] | | | | | | [phone] | | | +--------+ + + + [...]
--- OUTSIDE RECORDS SUMMARY | ~2020-05-29 | XMS | Encounter Summary ---
Demographics + + + | Address | [address] | | | [place] [address] | + + + | Home Phone [...] | Organization | [facility] | [...] Providers + +------+ + | Care Certified Endoscopy Technician Name | Role | Phone | + +------+ + PCP | Unavailable | + +------+ + Encounter Details +--------+ + + + + | Date | Type | Department | Care Team | Description | +--------+ + + + + | 05/26/ | Hospital | [facility] | Alexa Bower DO | Infection of lumbar | | 2017 - | Encounter | [facility] [address] | spine (HCC); Type [address] | | | [address] | [place] [address] | diabetes mellitus | | 05/27/ | | [place], [place] | [phone] | without | | 2017 | | [address] | | complication, | | | | [phone] | | unspecified long | | | | | | term insulin use | | | | | | status ([facility]); | | | | | | History of drug | | | | | | abuse ([facility]); BMI | | | | | | 40.0-44.9, adult | | | | | | ([facility]); Back pain, | | | | [...] Service: Hospitalist Author Type: Physician Filed: 07/20/17 1546 Date of Service: 05/27/171842 Status: Signed Residential Construction Instructor: Reynold Garcia MD (Physician) I was informed [...] (none) Author Type: Registered Nurse Filed: 05/27/17 438 Date of Service: 05/27/171842 Status: Signed Residential Construction Instructor: Mesha Brown RN (Registered Nurse) Pt anxious, [...] and RN notified him of patient le mary lou AMA. Mesha Brown RN 05/27/2017 6:50 PM onver ludwin Transaction, Provider Unknown - 05/27/2017 1:03 PM PDT Nurse Progress Note by Mesha Brown RN at 05/27/17 1303 Author: Mesha Brown RN Service: (none) Author Type: Registered Nurse Filed: 05/27/17 1304 Date of Service: 05/27/17 1303 Status: Signed Residential Construction Instructor: Mesha Brown RN (Registered Nurse) Went to pt room to put on bloodless medicine band and patient not in room/on floor. Mesha Brown RN 05/27/2017 1:03 PM onver ludwin Transaction, Provider Unknown - 05/27/2017 10:45 AM PDT Case Management by Da Goode RN at 05/27/17 1045 Author: Da Goode RN Service: (none) Author Type: Registered Nurse Filed: 05/27/17 1050 Date of Service: 05/27/17 1045 Status: Signed Residential Construction Instructor: Da Goode RN (Registered Nurse) 05/27/17 1042 [...] Oriented Prior functional status independant Power of Wash Operator No Anticipated Discharge Plan Post Acute Care Needs None at this time Resources Financial concerns No Transportation issues No ( will transport) Patient/Family concerns No Prescription Plan Yes Name of Pharmacy [facility] [place] [facility] phone number [phone] Previous home health equipment No Vascular access device No Ostomy/Drains/Appliances No Anticipated Disposition Facility Type Home Met with patient at bedside. Annabella is a 41 year old female with a history of anxiety/depre sssion, HTN, COPD, DM type 2, and IV drug use. She lives in [place] with her daughter 2 6, and 14 year old twins. Her is currently getting a new house ready for them to mov e into and is active in their lives. Annabella went to [facility] for pelvic pain and spotting but left AMA while waiting for MR I results because she couldn't smoke. The hospital called her and recommended her to go to [facility] based on the MRI results. Patient is independent in all ADL's. Because of the IV drug use, sending her home with an I V line is not recommended is she needs outpatient IV abx. Patient's PCP is: Virginia Reddy NP [facility]'s [facility] [employer] Coverage concerns:no Medication coverage/concerns: no Community resources utilized / needed: TBD Assistance in transportation: not at this time Identification of any specific education / training: TBD Barriers to Discharge / Alternative housing needed: not at this time Anticipated DCP: Home DA GOODE RN Case Management [phone] Andre Lay MD - 05/27/2017 9:46 AM PDT Progress Notes by Andre Alonso MD-R1 at 05/27/17 0946 Author: Andre Alonso MD-R1 Service: Hospitalist Author Type: Resident-Y1 Filed: 05/27/17 190 Date of Service: 05/27/17945 Status: Attested Residential Construction Instructor: Andre Alonso MD-R1 (Resident-Y1) Cosigner: Reynold Garcia MD at 05/31/17 [...] this time. I also discussed with dr. 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 I anticipate that pt may not be happy during this hospi yuridia stay for this reason. I recommend risk management to see pt proactively. 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 [facility] Service: Hospitalist Progress Note Hospital Day: LOS: 0 days Post-Op Day: * No surgery found * SUBJECTIVE Patient Summary: the patient is a 41-year-old female with significant past medical h istory of type II diabetes, hypertension, gastroesophageal reflux disease, depression, IV dr hawa goldsmith who is a transfer from [facility] for further evaluation. Events Overnight: The patient is having significant pain rated 7/10 in the lower back. She is not currently incontinent and also denies saddle paresthesia/numbness. She has motor function of the lower extremities. She is producing urine and had her last bowel movement y esterday. Review of Systems Constitutional: Positive for malaise/fatigue. [...] 9.8 DIFFTYPE AUTOMATED AUTOMATED Recent Labs Lab 05/27/1716 05/27/176 K 4.0 4.0 CL 107 106 CO2 26 26 ANIONGAP 10 10 GLUF 86 83 BUN 8 8 CREATININE 0.7 0.78 BCR 11 10 CA 8.5 7.6* PROT -- 7.2 ALB -- 3.2* GLOB -- 4.1 BILITOT -- 0.4 ALP -- 61 AST -- 33 ALT -- 43 EGFR >60 >60 BMP: Recent Labs Lab 05/27/1716 05/27/17 031 NA 139 139 K 4.0 4.0 CL 107 106 CO2 26 26 ANIONGAP 10 10 GLUF 86 83 BUN 8 8 CREATININE 0.7 0.78 BCR 11 10 CA 8.5 7.6* EGFR >60 >60 Recent Labs Lab 05/27/17615 MG 2.3 Recent Labs Lab 05/27/1716 05/27/176 APTT 27 27 INR 1.0 1.0 Recent Labs Lab 05/27/17 031 CKTOTAL 43 CKMBINDEX UNABLE TO CALCULATE PROBLEM [...] IV drug abuse who was transferred from [facility] in [place], [place] for further evaluation of suspicious lumbar [...] 05/27/17635 Date of Service: 05/27/17633 Status: Signed Residential Construction Instructor: Cathy Garcia RN (Registered Nurse) Contacted [facility]. Will fax over current microbiology GC test along with most current wound culture results. onver ludwin Transaction, Provider Unknown - 05/27/2017 5:15 AM PDT Progress Notes by Remy Trinidad RPH at 05/27/17514 Author: Remy Trinidad RPH Service: Pharmacy Author Type: Pharmacist Filed: 05/27/17514 Date of Service: 05/27/17514 Status: Signed Residential Construction Instructor: Remy Trinidad RPH (Pharmacist) Note ccl 125.9ml/min meds reviewed Pharmacy will follow rdc 0515 docume nted in this encounter H&P Notes Tom Rae MD - 05/27/2017 2:41 AM PDT H&P by BERTRAM Boyer at 05/27/17240 Author: BERTRAM Boyer Service: Hospitalist Author Type: Resident-Y1 Filed: 05/27/17621 Date of Service: 05/27/17240 Status: Attested Addendum Residential Construction Instructor: BERTRAM Boyer (Resident-Y1) Related Notes: Original Note by BERTRAM Boyer (Resident-Y1) filed at 05/27/17513 Cosigner: Alexa Bower DO at 06/21/17621 Attestation signed by Alexa Bower DO at 06/21/17621 (Updated) Chief complaint: Back Pain "I had an MRI and they told me there's fluid on my spine" Abdominal Pain Vaginal Bleeding Referral "the infectious disease doctor from [place] told me to come here to be admitted" Reason for admission: Possible paraspinal abscess Patient seen and evaluated independently. Patient denies saddle anesthesia. No suprapubic d istention or tenderness noted. Agree with above assessment, will recommend closely monitoring this patient for respiratory distress and use of narcotics for pain. [facility] Service: Hospitalist Admission History & Physical Date of Admission: 05/27/2017 Requesting Physician: Emergency Department Reason for Admission: History Obtained From: patient CHIEF COMPLAINT: HISTORY OF PRESENT ILLNESS The patient is a 41 y.o. female with significant past medical history of anxiety and depres ludwin, hypertension, COPD, diabetes mellitus type II and IV drug abuse. Patient presents with complaints of lower back pain and states she was told there is fluid in her spine. She was seen at [facility] in [place] yesterday where she was being evaluated for pelvic pain, vaginal bleeding and low back pain. Patient has an IUD and last month's period was normal. S tates she started to have spotting 3 weeks ago and has not stopped. The lower back pain she has been experiencing for 1.5 weeks. Denies any trauma. Pain is sharp and constant, predomin antly in her left lower back. Does not radiate, is worse when walking or laying down flat. P ain improved with medications. Workup at [facility] revealed elevated CRP of 7.7, CBC and CMP were unremarkable. MRI of lumbar spine was taken and while results were pending, tracey chowdhury left AMA due to long wait time and was upset the nurse did not let her smoke outside with her peripheral IV line. MRI showed a lesion suspicious for small abscess adjacent to the pos terior aspect of the right facet joint of L4-L5. [facility] ED physician spoke with Dr. Triston alcantara (ID) who recommended radiology guided sampling of fluid by IR as well as blood cultures . He called patient to advise her to come to [facility] for further evaluation. Patient uses IV he roin, last use was yesterday due to the pain. She states she is unsure if the needles she us es are clean. In the [facility] ED, patient found to be afebrile with normal vital signs. ESR elevated at 23, C RP elevated at 1.7, lactic acid normal. CBC unremarkable except for mild thrombocytopenia. U rinalysis showed trace leukocytes with 2+ bacteria and small blood. Blood cultures were draw n and are pending. Denies chest pain, shortness of breath, nausea or vomiting. Patient to be admitted under hospitalist service for further evaluation. REVIEW OF SYSTEMS Constitutional: Negative for fever, chills HENT: Negative. Eyes: Negative for photophobia, pain, discharge, redness, itching and visual disturbance. Respiratory: Negative for shortness of breath and wheezing. Cardiovascular: Negative for chest pain, palpitations and leg swelling. Gastrointestinal: Negative for nausea, vomiting, diarrhea, constipation. Positive for abdom inal pain Genitourinary: Negative for dysuria, Positive for urinary incontinence for 1 month. Negativ e for loss of bowel function. Musculoskeletal: Positive for back pain, Negative for joint swelling, arthralgias and gait problem. Skin: Negative for color change, pallor, rash and wound. Neurological: Positive for dizziness and weakness. Negative for syncope Psychiatric/Behavioral: Negative for suicidal ideas, hallucinations, behavioral problems, c onfusion and agitation. Past Medical History Diagnosis Date Diabetes mellitus type II Anxiety Hypertension GERD (gastroesophageal reflux disease) Depression Other chronic pain Past Surgical History Procedure Laterality Date Cholecystectomy Shoulder arthroscopy w/ rotator cuff repair right Tonsillectomy section Ventriculoperitoneal shunt Carpal tunnel release bilateral Appendectomy Prior to Admission medications Medication Sig Start Date End Date Taking? Authorizing Provider losartan (COZAAR) 50 MG tablet Take 50 mg by mouth daily. Yes Historical Provider omeprazole (PRILOSEC) 20 MG capsule Take 20 mg by mouth 2 (two) times daily. Yes Historic al Provider sertraline (ZOLOFT) 100 MG tablet Take 200 mg by mouth daily. Yes Historical Provider buprenorphine-naloxone (SUBOXONE) 2-0.[address] under the tongue every 6 (six) hours as needed. Historical Provider diazepam (VALIUM) 10 MG tablet Take 10 mg by mouth every 6 (six) hours as needed. Histor ical Provider METFORMIN HCL PO Take 250 mg by mouth. Historical Provider Allergies Allergen Reactions Codeine Hives Morphine Hives Tramadol Hives Cephalexin Rash Lamotrigine Other (See Comments) Suicidal ideation Paroxetine Other (See Comments) depression Venlafaxine Other (See Comments) Depression Amoxicillin-Pot Clavulanate Nausea and Vomiting History reviewed. No pertinent family history. Social History Social History Marital Status: Spouse Name: N/A Number of Children: N/A Years of Education: N/A Occupational History Not on file. Social History Main Topics Smoking status: Current Every Day Smoker -- 0.50 packs/day Types: Cigarettes Smokeless tobacco: Never Used Alcohol Use: Yes Comment: occ Drug Use: Yes Special: Marijuana Sexual Activity: Not on file Other Topics Concern Not on file Social History Narrative PHYSICAL EXAM Vital Signs: BP 107/59 mmHg | Pulse 82 | Temp(Src) 98.1 F (36.7 C) (Temporal) | Resp 18 | Wt 121 kg (266 lb 12.1 oz) | SpO2 95% General Appearance: obese female, lethargic but cooperative, and appears to be in no acute distress. HEENNT: Normocephalic and atraumatic. Hearing grossly intact. No nasal discharge. Poor dent ition, moist oral mucosa Cardiovascular: normal rate, rhythm is regular. No murmurs appreciated. Peripheral pulses i ntact. Pulmonary/Chest: Lungs are clear to auscultation bilaterally. Effort is normal. Normal bella th sounds. Abdominal: large abdomen, Soft, nontender, no suprapubic distention. Normoactive bowel soun ds. No guarding or rebound tenderness. Back: non-tender to palpation, limited range of motion due to pain Extremities: trace swelling, no erythema of lower extremities bilaterally Neurological: Oriented to person, place, and time. Skin: Skin is warm and dry. No rash noted. Multiple scarring noted on upper extremities jaun aterally Psychiatric: without hallucinations, no abnormal affect or abnormal behaviors during the ex amination. DATA Recent Labs Lab 05/27/17315 WBC 7.45 HGB 12.3 HCT 36.4 PLT 132* NEUTOPHILPCT 50.84 MONOPCT 5.58 Recent Labs Lab 05/27/17315 NA 139 K 4.0 CL 106 CO2 26 BUN 8 CREATININE 0.78 PROT 7.2 BILITOT 0.4 ALT 43 AST 33 Recent Labs Lab 05/27/17315 APTT 27 INR 1.0 Recent Labs Lab 05/27/17315 CKTOTAL 43 CKMBINDEX UNABLE TO CALCULATE Radiology No results found. PROBLEM LIST Principal Problem: Acute low back pain Active Problems: IV drug abuse Type 2 diabetes mellitus (HCC) Essential hypertension, benign Anxiety and depression Chronic pain Abnormal vaginal bleeding Resolved Problems: * No resolved hospital problems. * ASSESSMENT & PLAN Principal Problem: Acute low back pain MRI lumbar spine performed at [facility] in [place] showed a subcentimeter rim-enhanci ng collection adjacent to the posterior right facet joint of L4-L5 suspicious for small absc ess. Dr. Rangel (ID) was consulted and recommended this be sampled under radiology guidanc e by IR. Patient is currently afebrile with normal vital signs. No concerns for sepsis. - blood cultures drawn, pending - Will consult IR. - pain control with tylenol and naproxen Active Problems: IV drug abuse Currently using IV heroin. Consulted nurse outreach case manager for assistance with drug rehabilitation. Type 2 diabetes mellitus (HCC) Ordered Hb A1c. Will hold Metformin. Started patient on low dose insulin sliding scale Essential hypertension, benign Stable. Will continue Losartan 100 mg daily. EKG pending please follow Anxiety and depression Stable. Will continue with alprazolam and amitriptyline Chronic pain Patient on suboxone, will hold. Pain management with Tylenol and naproxen Abnormal vaginal bleeding Ongoing issue. May consider gynecology consult if persists. - follow up urinalysis - G/[facility] from [facility] pending, hospitalist to request results DVT prophylaxis: SCDs, will start lovenox once cleared by IR Disposition: Inpatient Code Status: No Order Primary Care Physician: Virginia Rae MD-R1 05/27/2017 4:35 AM documented in this enco unter Consult Notes Kate Rangel MD - 05/27/2017 6:18 AM PDTFormatting of this note might be differen t from the original. Consult* by Kate Rangel MD at 05/27/17617 Author: Kate Rangel MD Service: Infectious Disease Author Type: Physician Filed: 06/06/17921 Date of Service: 05/27/17617 Status: Addendum Residential Construction Instructor: Kate Rangel MD (Physician) Related Notes: Original Note by Kate Rangel MD (Physician) filed at 06/06/17920 [facility] Service: Infectious Disease Initial Consult Note Date of Admission: 05/26/2017 Reason for Consultation: Concern for spine infection in a patient with history of IV drug use Requesting Physician: Dr. Alexa Bower, Hospitalist History Obtained From: patient, chart review CHIEF COMPLAINT: Back pain; prior evaluation at [facility] with MRI concer ns for spine infection HISTORY OF PRESENT ILLNESS The patient is a 41 y.o. 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 She denies history of HIV or chronic hepatitis, had tests in the distant past but expr esses interest in getting these checked. On 05/02/2017 she had a R arm wound culture that grew MRSA susceptible to doxycycline, trimet hoprim/sulfamethoxazole, daptomycin, gentamicin and clindamycin. It is unclear if she had t his I & D'd or what antibiotics she took, but it reportedly improved. On 05/25, the patient was seen at [facility] in [place] for low back pain which she linda cribed as severe and pelvic pain. She has been having vaginal spotting; she has an IUD and described having normal period the prior month. The vaginal spotting reportedly has stopped but she is interested in seeing a DRY JANITOR. The low back pain is persistent, described to be sh eddie, aggravated by movement, walking with no radiation and not associated with lower extremi ty weakness, numbness, bladder or bowel incontinence. She has been afebrile with no chills or sweats. MRI of the lumbar spine with and without contrast showed edema and enhancement centered abo ut the lateral facet joints at L4-L5. This was described to most likely be degenerative in n ature but there is a subcentimeter rim-enhancing collection adjacent to the posterior aspect of the right facet joint suspicious for a small abscess related to septic facet arthritis. There is no lumbar spine discitis or osteomyelitis or epidural phlegmon or abscess. Spine di sc and facet degeneration was noted. Mild bilateral L4-L5 neural foraminal stenosis was note d. There was also noted left adnexal cyst measuring 3.2 cm. She has been afebrile with normal hemodynamics. ESR 23, CRP 1.7. Normal lactic acid. WBC is normal. Blood cultures have been sent with no growth to date. Dr. Garcia has discussed the patient's case with Neurosurgery and reviewed the films with Radi ology: There is not enough fluid for aspiration. REVIEW OF SYSTEMS Review of Systems 12 point review of system negative unless specified above Past Medical History Diagnosis Date Diabetes mellitus type II Anxiety Hypertension GERD (gastroesophageal reflux disease) Depression Other chronic pain Past Surgical History Procedure Laterality Date Cholecystectomy Shoulder arthroscopy w/ rotator cuff repair right Tonsillectomy section Ventriculoperitoneal shunt Carpal tunnel release bilateral Appendectomy Allergies Allergen Reactions Codeine Hives Morphine Hives Tramadol Hives Cephalexin Rash Lamotrigine Other (See Comments) Suicidal ideation Paroxetine Other (See Comments) depression Venlafaxine Other (See Comments) Depression Amoxicillin-Pot Clavulanate Nausea and Vomiting Prescriptions prior to admission Medication Sig Dispense Refill Last Dose amitriptyline (ELAVIL) 100 MG tablet Take 100 mg by mouth nightly. losartan (COZAAR) 50 MG tablet Take 100 mg by mouth daily. 05/26/2017 at Unknown time omeprazole (PRILOSEC) 20 MG capsule Take 20 mg by mouth 2 (two) times daily. 7 at Unknown time sertraline (ZOLOFT) 100 MG tablet Take 200 mg by mouth daily. 05/26/2017 at Unknown ti me buprenorphine-naloxone (SUBOXONE) 2-0.[address] under the tongue every 6 (six) h ours as needed. Taking diazepam (VALIUM) 10 MG tablet Take 10 mg by mouth every 6 (six) hours as needed. Alphonso ing METFORMIN HCL PO Take 500 mg by mouth. Taking Scheduled Medications ALPRAZolam 1 mg Oral BID [...] glucagon, ondansetron OR ondansetron, polyethylene glycol, zolpidem History reviewed. No pertinent family history. Social History Social History Marital Status: Spouse Name: N/A Number of Children: N/A Years of Education: N/A Occupational History Not on file. Social History Main Topics Smoking status: Current Every Day Smoker -- 0.50 packs/day Types: Cigarettes Smokeless tobacco: Never Used Alcohol Use: Yes Comment: occ Drug Use: Yes Special: Marijuana Sexual Activity: Not on file Other Topics Concern Not on file Social History Narrative PHYSICAL EXAM Vital Signs: BP 115/73 mmHg | Pulse 88 | Temp(Src) 98 F (36.7 C) (Temporal) | Resp 17 | Ht 1.676 m ( 5' 6") | Wt 121 kg (266 lb 12.1 oz) | BMI 43.08 kg/m2 | SpO2 93% Temp: [98 F (36.7 C)-98.1 F (36.7 C)] 98 F (36.7 C) (05/27 507) BP: (107-123)/(59-86) 115/73 mmHg (05/277) Heart Rate: [79-91] 88 (05/27 0507) Resp: [16-18] 17 (05/27 507) SpO2: [93 %-99 %] 93 % (05/27 507) Height: [167.6 cm (5' 6")] 167.6 cm (5' 6") (05/27 507) Weight: [121 kg (266 lb 12.1 oz)] 121 kg (266 lb 12.1 oz) (05/27 507) BMI (Calculated): [43.1] 43.1 (05/27 507) Physical Exam Vital signs reviewed General: Awake, alert, not in acute distress; patient seen with son in room HEENT: Normocephalic. Anicteric sclerae, no conjunctival lesions. No oral thrush. Suppl e neck. No cervical lymphadenopathy Lungs: No adventitious breath sounds CV: RRR, no murmur or rubs Abdomen: Obese. No distention. Positive bowel sounds. Soft. No tenderness, rebound or g uarding. No palpable masses Skin: No rash, open wounds, abscesses. Scars noted at both upper extremities MS: No inflamed looking joints. No erythema/swelling at back. No direct spine tenderness to palpation Neurologic: Oriented x 3, no focal neurologic deficits Psychiatric: Cooperative for clinical evaluation DATA CBC: Lab Results Component Value Date WBC 7.45 05/27/2017 RBC 4.25 05/27/2017 HGB 12.3 05/27/2017 HCT 36.4 05/27/2017 MCV 85.8 05/27/2017 MCH 28.9 05/27/2017 MCHC 33.7 05/27/2017 RDW 52.5 05/27/2017 PLT 132* 05/27/2017 MPV 9.8 05/27/2017 DIFFTYPE AUTOMATED 05/27/2017 WBC: Lab Results Component Value Date WBC 7.45 05/27/2017 NEUTROABS 3.79 05/27/2017 LYMPHSABS 3.01 05/27/2017 LYMPHOPCT 40.37 05/27/2017 MONOPCT 5.58 05/27/2017 EOSABS 0.19 05/27/2017 EOSPCT 2.58 05/27/2017 BASOSABS 0.05 05/27/2017 BASOPCT 0.63 05/27/2017 PLTEST DECREASED 05/27/2017 CMP: Lab Results Component Value Date NA 139 05/27/2017 K 4.0 05/27/2017 CL 106 05/27/2017 CO2 26 05/27/2017 ANIONGAP 10 05/27/2017 GLUF 83 05/27/2017 BUN 8 05/27/2017 CREATININE 0.78 05/27/2017 BCR 10 05/27/2017 CA 7.6* 05/27/2017 PROT 7.2 05/27/2017 ALB 3.2* 05/27/2017 GLOB 4.1 05/27/2017 BILITOT 0.4 05/27/2017 ALP 61 05/27/2017 AST 33 05/27/2017 ALT 43 05/27/2017 EGFR >60 05/27/2017 PT/INR: Lab Results Component Value Date INR 1.0 05/27/2017 U/A: Lab Results Component Value Date COLORU YELLOW 03/03/2013 CLARITYU CLEAR 05/27/2017 CLARITYU CLEAR 03/03/2013 LEUKOCYTESUR TRACE* 05/27/2017 NITRITE NEGATIVE 05/27/2017 NITRITE NEGATIVE 03/03/2013 UROBILINOGEN NORMAL 05/27/2017 UROBILINOGEN 0.2 03/03/2013 UPRO NEGATIVE 05/27/2017 UPRO NEGATIVE 03/03/2013 PHUR 5.0 05/27/2017 PHUR 5.5 03/03/2013 BLOODU SMALL* 05/27/2017 KETONES NEGATIVE 05/27/2017 BILIRUBINUR NEGATIVE 05/27/2017 BILIRUBINUR NEGATIVE 03/03/2013 GLUCOSEU NEGATIVE 05/27/2017 Lab Results Component Value Date ESR 23* 05/27/2017 Lab Results Component Value Date CRP 1.7* 05/27/2017 Microbiology Data: 05/27 MRSA nasal PCR negative 05/27 Blood cultures in process Radiology Data: Reviewed PROBLEM LIST Principal Problem: Acute low back pain Active Problems: IV drug abuse Type 2 diabetes mellitus (HCC) Essential hypertension, benign Anxiety and depression Chronic pain Abnormal vaginal bleeding ASSESSMENT & PLAN Back pain - suspect that this is more likely from degenerative disease than infection -MRI of spine had been (informally) reviewed by Neurosurgery and [facility] Radiology does not think there is enough fluid for aspiration biopsy -although patient has history of MRSA, IVDU, she is afebrile with no chills or sweats. She has no neurologic deficits. Inflammatory markers are low. MRSA nasal PCR is negative. Blo od cultures are in process; would favor monitoring patient off antibiotics and if blood cult ures show no growth in 36-48 hours, may discharge with ongoing clinical monitoring. -pain management per hospitalist IVDU -patient counseled about adverse effects of this to her health and consider behavioral hea lth counseling/drug use cessation -patient expresses interest in HIV/hepatitis screening; these have been ordered Abnormal vaginal bleeding -patient has an IUD and reports normal menstruation in the past month. Suggest OB-DRY JANITOR refe rral as an outpatient. Case had been discussed with ER physician at [facility] and with Dr. Garcia, her hospitalis t today Code Status: Full Code Primary Care Physician: Virginia Reddy Thank you for allowing me to participate in the care of this patient. KATE RANGEL MD 05/27/2017 documented in t his encounter ED Notes Conversion Transaction, Provider Unknown - 05/27/2017 3:14 AM PDTFormatting of this note m ight be different from the original. ED Notes by Kenya Zavala RN at 05/27/17313 Author: Kenya Zavala RN Service: (none) Author Type: Registered Nurse Filed: 05/27/17313 Date of Service: 05/27/17313 Status: Signed Residential Construction Instructor: Kenya Zavala RN (Registered Nurse) Dr Bower at pt BS Kenya Zavala RN 05/27/17313 d Mcknight MD - 05/27/2017 12:26 AM PDT ED Provider Notes by Ed Toney DO at 05/27/17 002 Author: Ed Toney DO Service: Emergency Department Author Type: Physician Filed: 05/27/17 0443 Date of Service: 05/27/1725 Status: Signed Residential Construction Instructor: Ed Toney DO (Physician) [facility] Department of Emergency Medicine 12:26 AM 05/26/2017 History of Present Illness Patient Identification Annabella Au is a 41 y.o. female. Patient information was obtained from patient and past medical records. History/Exam limitations: none. Patient presented to the Emergency Department by: Car Chief Complaint Chief Complaint Patient presents with Back Pain "I had an MRI and they told me there's fluid on my spine" Abdominal Pain Vaginal Bleeding Referral "the infectious disease doctor from [place] told me to come here to be admitted" Patient presents to the ED with complaints of back pain. Onset of symptoms was today, with a constant course since that time. Symptoms are described to be of moderate severity. Tracey chowdhury describes quality and location of symptoms as: worsening sharp lower back pain. Patient al so complains of vaginal bleeding. Patient was seen in the [place] ED 3 days ago for vagina l bleeding, where she was found to have a "pocket of fluid in my spine." Patient became upse t, then left the facility AMA. She was then called today with her results, and advised to co me to [facility] ED for further evaluation/admission. The patient has no other complaints at th is time. Dr. Rangel is aware of patient's case and is requesting 3 sets of blood cultures, and adm ission. Past Medical History Diagnosis Date Diabetes mellitus type II Anxiety Hypertension GERD (gastroesophageal reflux disease) Depression Other chronic pain Past Surgical History Procedure Laterality Date Cholecystectomy Shoulder arthroscopy w/ rotator cuff repair right Tonsillectomy section Ventriculoperitoneal shunt Carpal tunnel release bilateral Appendectomy Prior to Admission medications Medication Sig Start Date End Date Taking? Authorizing Provider losartan (COZAAR) 50 MG tablet Take 50 mg by mouth daily. Yes Historical Provider omeprazole (PRILOSEC) 20 MG capsule Take 20 mg by mouth 2 (two) times daily. Yes Historic al Provider sertraline (ZOLOFT) 100 MG tablet Take 200 mg by mouth daily. Yes Historical Provider buprenorphine-naloxone (SUBOXONE) 2-0.[address] under the tongue every 6 (six) hours as needed. Historical Provider diazepam (VALIUM) 10 MG tablet Take 10 mg by mouth every 6 (six) hours as needed. Histor ical Provider METFORMIN HCL PO Take 250 mg by mouth. Historical Provider Allergies Allergen Reactions Codeine Hives Morphine Hives Tramadol Hives Cephalexin Rash Lamotrigine Other (See Comments) Suicidal ideation Paroxetine Other (See Comments) depression Venlafaxine Other (See Comments) Depression Amoxicillin-Pot Clavulanate Nausea and Vomiting Social History Social History Marital Status: Spouse Name: N/A Number of Children: N/A Years of Education: N/A Occupational History Not on file. Social History Main Topics Smoking status: Current Every Day Smoker -- 0.50 packs/day Types: Cigarettes Smokeless tobacco: Never Used Alcohol Use: Yes Comment: occ Drug Use: Yes Special: Marijuana Sexual Activity: Not on file Other Topics Concern Not on file Social History Narrative History reviewed. No pertinent family history. Review of Systems Constitutional: Negative for: fever or chills Cardiovascular: Negative for: chest pain Respiratory: Negative for: cough or shortness of breath Gastrointestinal: Negative for: vomiting or abdominal pain Genitourinary: Negative for: dysuria, flank pain, or hematuria Positive for: vaginal bleeding Musculoskeletal: Positive for: back pain Skin: Negative for: rash or lesion Neuro and psych: Negative for: fainting or dizziness All other systems were reviewed and are subjectively reported as negative. Physical Exam BP 122/64 mmHg | Pulse 91 | Temp(Src) 98.1 F (36.7 C) (Temporal) | Resp 16 | Wt 121 kg (266 lb 12.1 oz) | SpO2 95% Vitals: Pre-hypertensive, otherwise WNL Pulse Oximetry Interpretation: Normal General: Alert, no active distress and not requiring any emergent interventions Eyes: Normal inspection ENT: Ears normal Nose normal Pharynx normal Neck: Normal inspection Supple Full ROM Cardiovascular: Normal rate and rhythm, no extra sounds No murmurs rubs or gallops Focal PMI Respiratory: No respiratory distress or wheezing Normal excursion No retractions Abdomen: Soft, non-tender, non-distended Normal active bowel sounds Back: Normal inspection Without tenderness or deformity Skin: Color normal Warm and dry Extremities: GIL with equal pulses in the upper and lower extremities bilaterally Neuro: No gross motor/sensory deficit GCS 15 No cerebellar deficits Alert and oriented to person, place, time and situation. Medical Decision Making and Emergency Department Course ED Department Course Patient presents to the ED for evaluation of back pain. Patient had MRI obtained in [place] on, and was advised to come to the [facility] ED for admission and treatment of possible abscess of spine. Dr. Rangel is aware of patient's case and is requesting three sets of blood cul tures and admission. Will order labs, and reevaluate. Will also obtain MRI report. 2:25 AM Reviewed patient's records which were sent from [facility] in [place]. 2:34 AM Discussed patient's case with Dr. Bower, hospitalist, who accepts patient for admis ludwin. Medications sodium chloride 0.9 % with KCl 40 mEq infusion (110 mL/hr Intravenous New Bag 05/27/17308) Patient Vitals for the past 24 hrs: BP Temp Temp src Pulse Resp SpO2 Weight 05/27/17 0416 107/59 mmHg - - 82 18 95 % - 05/27/17 0300 123/86 mmHg - - 82 18 99 % - 05/27/17 0201 114/62 mmHg - - 79 18 98 % - 05/26/17 2347 122/64 mmHg 98.1 F (36.7 C) Temporal 91 16 95 % 121 kg (266 lb 12.1 oz) Patient was noted to have elevated blood pressure during ED visit. This is an incidental fi nding. Possibly related to pain, stressful situation, and overall discomfort by ED visit. I discussed with patient that this needs to be closely followed up on with PCP. Unclear if thi s is actual indication of HTN or again just secondary to stressful ED visit. Patient confirm ed understanding of need for further evaluation and discussion with PCP within the next week to consider adjusting medications or starting new ones. Records Reviewed Old ED records reviewed (Using the electronic record system of [facility], I car efully reviewed the records with regard to the past medical/surgical history, previous medic ations, and allergies). Nursing notes reviewed for chief complaint, medications, clinical presentation and vital si gns Laboratory Evaluation Results Procedure Component Value Ref Range Date/Time Drugs of Abuse Screen, UR Hospital and ED Only [[id number]] Order Status: Sent Specimen Information: Urine, Clean Catch Cardiac Panel [[id number]] (Abnormal) Collected: 05/27/17315 Order Status: Completed Updated: 05/27/17416 WBC 7.45 3.80 - 11.00 K/uL RBC 4.25 3.70 - 5.10 M/uL HGB 12.3 11.3 - 15.5 g/dL HCT 36.4 34.0 - 46.0 % MCV 85.8 80.0 - 100.0 fl MCH 28.9 27.0 - 34.0 pg MCHC 33.7 32.0 - 35.5 g/dL RDW SD 52.5 37 - 53 fl PLT 132 (L) 150 - 400 K/uL MPV 9.8 fl DIFF TYPE AUTOMATED NEUTROPHILS 50.84 % LYMPHOCYTES 40.37 % MONOCYTES 5.58 % EOSINOPHILS 2.58 % BASOPHILS 0.63 % NEUTROPHILS ABS 3.79 1.90 - 7.40 K/uL LYMPHOCYTES ABS 3.01 1.00 - 3.90 K/uL MONOCYTES ABS 0.42 0.00 - 0.80 K/uL EOSINOPHILS ABS 0.19 0.00 - 0.50 K/uL BASOPHILS ABS 0.05 0.00 - 0.10 K/uL MORPHOLOGY RBC AND PLT MORPHOLOGY APPEAR NORMAL Platelet Estimate DECREASED SODIUM 139 135 - 145 mmol/L POTASSIUM 4.0 3.5 - 4.9 mmol/L CHLORIDE 106 99 - 109 mmol/L CO2 26 23 - 32 mmol/L ANION GAP AGAP 10 5 - 20 mmol/L GLUCOSE 83 65 - 99 mg/dL BUN 8 8 - 25 mg/dL CREATININE 0.78 0.50 - 1.00 mg/dL BUN/CREAT 10 CALCIUM 7.6 (L) 8.5 - 10.5 mg/dL TOTAL PROTEIN 7.2 6.3 - 8.2 g/dL Albumin 3.2 (L) 3.6 - 5.0 g/dL GLOBULIN 4.1 1.3 - 4.9 g/dL A/G 0.8 (L) 1.0 - 2.4 TBIL 0.4 0.1 - 1.5 mg/dL ALK PHOS 61 35 - 115 U/L AST 33 10 - 45 U/L ALT 43 10 - 65 U/L EGFR >60 >60 mL/min/1.73m2 CPK 43 30 - 240 U/L INR 1.0 APTT 27 23 - 32 seconds MMB <1.0 0.5 - 3.6 ng/mL CK-MB Index UNABLE TO CALCULATE Sedimentation Rate (ESR) [[id number]] (Abnormal) Collected: 05/27/17315 Order Status: Completed Specimen Information: Blood Updated: 05/27/17357 ESR 23 (H) 0 - 20 mm/Hr Lactic acid [[id number]] Collected: 05/27/17316 Order Status: Completed Specimen Information: Blood Updated: 05/27/17348 LACTIC ACID 0.4 0.4 - 2.0 mmol/L C-Reactive Protein [[id number]] (Abnormal) Collected: 05/27/17315 Order Status: Completed Specimen Information: Blood Updated: 05/27/17347 CRP 1.7 (H) <0.5 mg/dL Blood culture, set 2 [[id number]] Collected: 05/27/17317 Order Status: Sent Specimen Information: Blood from Blood Updated: 05/27/17322 Blood Culture Set 1 [[id number]] Collected: 05/27/17314 Order Status: Sent Specimen Information: Blood from Blood Updated: 05/27/17320 Urinalysis (reflex to microscopic/reflex to culture) [[id number]] (Abnormal) Collected: 05/27/17199 Order Status: Completed Specimen Information: Urine, Clean Catch Updated: 05/27/17 23 COLOR UA RED CLARITY CLEAR Specific Aurelia, UA 1.005 1.002 - 1.030 LEUKOCYTE ESTERASE TRACE (A) NEGATIVE NITRITE NEGATIVE NEGATIVE UROBILINOGEN NORMAL <1.1 mg/dL PROTEIN NEGATIVE NEGATIVE mg/dL PH,URINE 5.0 5.0 - 8.0 BLOOD SMALL (A) NEGATIVE KETONES NEGATIVE NEGATIVE mg/dL BILIRUBIN NEGATIVE NEGATIVE GLUCOSE NEGATIVE NEGATIVE mg/dL WBC 0-2 0 - 5 /hpf RBC 3-5 0 - 5 /hpf BACTERIA 2+ (A) NONE SEEN EPITHELIAL 26-49 /lpf I personally reviewed the lab results and they have been posted to the chart. Pertinent po sitive and negative findings have been addressed appropriately. 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 This document has been prepared with a voice recognition system. The possibility of "sound alike" quenching car operator errors, addition and/or deletions may occur. If there is any question p lease contact the author of the document. Procedures Additional Documentation Procedures Attending Provider Note: Ed Montes DO personally performed the services describe d in this documentation, as scribed by Evelyn Fallon in my presence, and it is both accura te and complete. Chart Reviewed and Completed: 05/27/2017 4:43 AM Scribe: I Arti Hope, scribing for and in the presence of Ed Toney DO. Signed by: Arti Hope 05/27/2017 3:02 AM Ed Toney DO 05/27/17 0443 onversion Transac tion, Provider Unknown - 05/27/2017 12:04 AM PDTFormatting of this note might be different f rom the original. ED Notes by Kenya Zavala RN at 05/27/173 Author: Kenya Zavala RN Service: (none) Author Type: Registered Nurse Filed: 05/27/176 Date of Service: 05/27/173 Status: Signed Residential Construction Instructor: Kenya Zavala RN (Registered Nurse) "3 Days ago I went to the ED cause i have being heavy bleeding x2 weeks. They told me that my uterus was swollen and pushing on my back nerves. Today I have being experiencing more back pain and cramps. I had an MRI today and was told to come here because I have a pouch o f fluid in my back and they are thinking its infected" Kenya Zavala RN 05/27/176 docume nted in this encounter Miscellaneous Notes Plan of Care - Conversion Transaction, Provider Unknown - 05/27/2017 8:06 AM PDT Plan of Care by Mesha Brown RN at 05/27/17805 Author: Mesha Brown RN Service: (none) Author Type: Registered Nurse Filed: 05/27/17805 Date of Service: 05/27/17805 Status: Signed Residential Construction Instructor: Mesha Brown RN (Registered Nurse) Problem: Pain Goal: Patient s pain/discomfort is manageable Assess and monitor patient s pain using appropriate pain scale. Collaborate with interdis ciplinary team and initiate plan and interventions as ordered. Re-assess patient s pain le steffi approximately 1-2 hours after pain management intervention. Premedicate as needed. Outcome: Progressing Patient states pain is under control. Will continue to monitor and provide medication as we ll as comfort measures as needed. Problem: Safety Goal: Patient will be injury free during hospitalization Assess and monitor vitals signs, neurological status including level of consciousness and o rientation. Assess patient s risk for falls and implement fall prevention plan of care and interventions per hospital policy. Ensure arm band on, uncluttered walking paths in room, adequate room lighting, call light a nd overbed table within reach, bed in low position, wheels locked, side rails up per policy, and non-skid footwear provided. Outcome: Progressing Patient will remain free from falls during hospital visit. Bed in lowest position. Room zuleyka e from clutter. Call light within reach. Patient uses call light appropriately. No Falls During Hospital Stay: Encouraged patient to use call light when wanting to mobilize Bed in lowest position Call-light within reach Optimal Respiratory Status post op: Encouraged patient to use IS 10x/hr while awake Encouraged ambulation in hallways TID minimum Encouraged transfers to chair docume nted in this encounter Plan of [...] NEGATIVE Testing | | | performed at [facility];[address] [place] [address];[place] [address] | | + + + + +---------+ [...] | | | Fingerstick | performed at [facility];[address] | | LAB | | | | [address];[place], [place] | | | | | | [address] | | | | + + + [...] | | | Fingerstick | performed at [facility];[address] | | LAB | | | | [address];[place], [place] | | | | | | [address] | | | | + + + [...] - 1.030 | EXTERNAL | | | Aurelia, | | | LAB | | | [...] | | l squamous | performed at [facility], [address] | | LAB | | | epithelia, | [address], | | | | | UA | [place] [address] | | | | + + + [...] | | | Patient | performed at [facility];[address] | | LAB | | | | [address];[place], [place] | | | | | | [address] | | | | + + + [...] | | | | | performed at [facility];[address] | | | | | | [facility];[place], [place] | | | | | | [address] | | | | + + + [...] + + + + + + | Red Blood | 4.04 | 3.70 - 5.10 | EXTERNAL | | | Cells | | M/uL | LAB | | | Counted | | | | | + + + + + + | Hemoglobin | 11.8 | 11.3 - 15.5 | [...] | | | Basophils | performed at [facility], [address] | K/uL | LAB | | | | [address], | | | | | | [place] [address] | | | | + + + [...] EXTERNAL | | | | performed at [facility], [address] | | LAB | | | | Teresa [address], | | | | | | [place] [address] | | | | + + + [...] | | | | | [place] [address] | | | | + + + [...] + + | Hemoglobin | 5.7Comment: The [place] | 4.0 - 6.0 % | EXTERNAL [...] | | | | | performed at [facility], [address] | | | | | | [address], | | | | | | [place] [address] | | | | + + + [...] | | | | | | at [facility], [address] | | | | | | [facility], | | | | | | [place] [address] | | | | + + + [...] | | | Fingerstick | performed at [facility];[address] | | LAB | | | | [address]rey[address] Hammer;[place] | | | | | | [address] | | | | + + + [...] | | | | | performed at [facility];[address] | | | | | | [address];[place], [place] | | | | | | [address] | | | | + + + [...] EXTERNAL | | | | performed at [facility];[address] | mmol/L | LAB | | | | [address]reyda Hammer;[place], [place] | | | | | | [address] | | | | + + + [...] + + + + + + | Red Blood | 4.25 | 3.70 - 5.10 | EXTERNAL | | | Cells | | M/uL | LAB | | | Counted | | | | | + + + + + + | Hemoglobin | 12.3 | 11.3 - 15.5 | [...] at | | | | | | [facility];[address] | | | | [address];[place] [address] | | | | + + + [...] EXTERNAL | | | | performed at [facility] | | LAB | | | | Nereyda Hammer;[place] | | | | | | [address] | | | | + + + [...] EXTERNAL | | | | performed at [facility] | | LAB | | | | Nereyda [facility];[place], [place] | | | | | | [address] | | | | + + + [...] | | | QUALITATIVE | performed at [facility] | | LAB | | | | Ne[address]da Hammer;[place], [place] | | | | | | [address] | | | | + + + [...] - 1.030 | EXTERNAL | | | Aurelia, | | | LAB | | | [...] | | | Cells | performed at [facility];[address] | | LAB | | | | [address] Hammer;[place] | | | | | | [address] | | | | + + + [...] | + + | Héctor De Jesus - 07/11/2019 10:53 PM PDT This is a non-reportable procedure | | without a radiologist report and isused for image storage only | + + documented in this encounter Visit Diagnoses + + | Diagnosis | + + | Infection of lumbar spine (HCC) | + + | Type 2 diabetes mellitus without complication, unspecified usp insulin use | | status | + + | History of drug abuse (HCC) Other, mixed, or unspecified nondependent drug abuse, in | | remission | + + | BMI 40.0-44.9, adult ([facility]) Body Mass Index 40.0-44.9, adult | + + | Back pain, unspecified back location, unspecified back pain laterality, unspecified | | chronicity | + + documented in this encounter
--- OUTSIDE RECORDS SUMMARY | ~2020-05-29 | XMS | Encounter Summary ---
Demographics + + + | Address | [address] | | | [place] [address] | + + + | Home Phone [...] Organization | [facility] | [...] Team Providers + +------+ + | Care Crowning Hammer Operator Name | Role | Phone | + +------+ + PCP | Unavailable | + +------+ + Encounter Details +--------+ + + + + | Date | Type | Department | Care Team | Description | +--------+ + + + + | 05/31/ | Hospital | [facility] | | | | 1991 | Encounter | MED CTR WOMENS | | | | | | HEALTH SV [address] | | | | | | [place], | | | | | | [place] [address] | | | | | | [phone] | | | +--------+ + + + [...]
--- OUTSIDE RECORDS SUMMARY | ~2020-05-29 | XMS | Encounter Summary ---
Demographics + + + | Address | [address] | | | [place] [address] | + + + | Home Phone [...] + + + | Author | [place] Arte Manif[employer] [facility] | + + + | Organization | [facility] [employer] (now [employer] [facility] | + + + | Address | Unknown | + + + | Phone | Unavailable | + + + Support + + +---------+ + | Name | Relationship | Address | Phone | + + +---------+ + | Ruby Au | ECON | Unknown | | + + +---------+ + Care Team Providers + +------+ + | Care Logistics Coordinator Name | Role | Phone [...] CH8N | | | | | | [facility] | | | | | | and Healing, | | | | | | Building 1, | | | | | | Floor [place], [place] | | | | | | [address] | | | | | | [phone] | | | +--------+ + + + [...]
--- OUTSIDE RECORDS SUMMARY | ~2020-05-29 | XMS | Encounter Summary ---
Demographics + + + | Address | [address] | | | [place] [address] | + + + | Home Phone [...] + + + | Author | [place] [employer] Science [facility] | + + + | Organization | [facility] [...] Providers + +------+ + | Care Administrative Analyst Name | Role | Phone | + +------+ + | Brenden Benavides MD | PCP | | + +------+ + Encounter Details +--------+ + + + + | Date | Type | Department | Care Team | Description | +--------+ + + + + | 09/28/ | Documentati | [facility] | Brad Currie MD | | | 2006 | on | [place] | | | | | | Neuro-Ophthalmology | | | | | | [address] | | | | | | Mailcode: PATTI | | | | | | [place] [address] | | | | | | [phone] | | | +--------+ + + + [...]
--- OUTSIDE RECORDS SUMMARY | ~2020-05-29 | XMS | Encounter Summary ---
Demographics + + + | Address | [address] | | | [place] [address] | + + + | Home Phone [...] + + + | Author | [place] [employer] [facility] | + + + | Organization | [facility] [employer] [facility] | + [...] Team Providers + +------+ + | Care Wringer And Setter Name | Role | Phone | + +------+ + | Yeison Simms MD | PCP | Unavailable | + +------+ + Reason for Visit + + + | Reason | Comments | + + + | Refill Request | refill on [place]leer | + + + Encounter Details +--------+--------+ + + + | Date | Type | Department | Care Team | Description | +--------+--------+ + + + | 08/27/ | Refill | Neurosurgery at | Sam Pedroza MD | Refill Request | | 2007 | | [facility] [address] | [address] | (refill on [place]) | | | | Ave Mailcode: CH8N | [place], [place] | | | | | [facility] | [address] | | | | | and Healing, | [phone] | | | | | [facility] | | | | | | Floor [place], [place] | | | | | | [address] | | | | | | [phone] | | | +--------+--------+ + + + [...]
--- OUTSIDE RECORDS SUMMARY | ~2020-05-29 | XMS | Encounter Summary ---
Demographics + + + | Address | [address] | | | [place] [address] | + + + | Home Phone [...] + + + | Author | [place] [employer] Science [facility] | + + + | Organization | [facility] [...] Team Providers + +------+ + | Care Blueprint Duplicator Name | Role | Phone | [...] | | [address] Mailcode:OP14B | [place], | | | | | [facility] | [place] [address] | | | | | [place], [place] | | | | | | [address] | | | | | | [phone] | | | +--------+ + + + [...]
--- OUTSIDE RECORDS SUMMARY | ~2020-05-29 | XMS | Encounter Summary ---
Demographics + + + | Address | [address] | | | [place] [address] | + + + | Home Phone [...] + | Author | [facility] | | | and [place] | + + + | Organization | [facility] | [...] Providers + +------+ + | Care Rn Bariatric Name | Role | Phone | + +------+ + PCP | Unavailable | + +------+ + Encounter Details +--------+ + + + + | Date | Type | Department | Care Team | Description | +--------+ + + + + | 08/10/ | Hospital | [facility] | | | | 1990 | Encounter | MED CTR EMERGENCY | | | | | | CENTER [address] | | | | | | [place] | | | | | | [address] | | | | | | [phone] | | | +--------+ + + + [...]
--- OUTSIDE RECORDS SUMMARY | ~2020-05-29 | XMS | Encounter Summary ---
Demographics + + + | Address | [address] | | | [place] [address] | + + + | Home Phone [...] | Organization | [facility] | | | and [...] Team Providers + +------+ + | Care Acquisition Manager Name | Role | Phone | + +------+ + PCP | Unavailable | + +------+ + Encounter Details +--------+ + + + + | Date | Type | Department | Care Team | Description | +--------+ + + + + | 06/20/ | Hospital | [facility] | Yovanny Suazo, | | | 1991 | Encounter | MED CTR WOMENS | MD [address] | | | | | [facility] [address] | [address] | | | | | [place], | [place] [address] | | | | | [place] [address] | [phone] | | | | | [phone] | | | +--------+ + + + [...]
--- OUTSIDE RECORDS SUMMARY | ~2020-05-29 | XMS | Encounter Summary ---
Demographics + + + | Address | [address] | | | [place] [address] | + + + | Home Phone [...] + + + | Author | [place] [employer] [facility] | + + + | Organization | [facility] [employer] Science [facility] | + [...] Team Providers + +------+ + | Care Razor Sharpener Name | Role | Phone | [...] | | | Ave Mailcode: CH8N | [place], [place] | | | | | [facility] | [address] | | | | | and [facility], | [phone] | | | | | [facility] | | | | | | Floor [place], [place] | | | | | | [address] | | | | | | [phone] | | | +--------+ + + + [...]
--- OUTSIDE RECORDS SUMMARY | ~2020-05-29 | XMS | Encounter Summary ---
Demographics + + + | Address | [address] | | | [place] [address] | + + + | Home Phone [...] + + + | Author | [place] [employer] [facility] | + + + | Organization | [facility] [employer] [facility] | [...] Team Providers + +------+ + | Care Car Dumper Name | Role | Phone | + [...] Kirk | | | | | CH8N [facility] | [place], [place] | | | | | Health and Healing, | [address] | | | | | Building 1, 8th | | | | | | Floor [place], [place] | | | | | | [address] | | | | | | [phone] | | | +--------+ + + + [...]
--- OUTSIDE RECORDS SUMMARY | ~2020-05-29 | XMS | Encounter Summary ---
Demographics + + + | Address | [address] | | | [place] [address] | + + + | Home Phone [...] + + + | Author | [place] Hutchinson [employer] [facility] | + + + | Organization | [facility] Splice Machine Science [facility] [...] Team Providers + +------+ + | Care Operating Cost Clerk Name | Role | Phone | [...] Neurosurgery [address] | | | | | [facility] | [address] | | | | | and Healing, | [place], [place] | | | | | Building | [address] | | | | | Floor [place], [place] | | | | | | [address] | | | | | | [phone] | | | +--------+---------+ + + + [...]
--- OUTSIDE RECORDS SUMMARY | ~2020-05-29 | XMS | Encounter Summary ---
Demographics + + + | Address | [address] | | | [place] [address] | + + + | Home Phone [...] + + + | Author | [place] Zafu Science [facility] | + + + | Organization | [facility] Invoca Science [facility] [...] Team Providers + +------+ + | Care Playground Official Name | Role | Phone | + [...] Cerebri | | 2006 | Visit | [place] | | (Primary Dx) | | | | Neuro-Ophthalmology | | | | | | [address] [facility] | | | | | | Mailcode: CE | | | | | | [place] [address] | | | | | | [phone] | | | +--------+---------+ + + + [...] Referred by: CASIMIRO PAYTON MD [address] [place] [address] Symptoms: She has not been taking her [...] Brad Currie MD Neuro-Ophthalmology and Cerebrovascular Disease Mds Nurse of Ophthalmology, Neurology, and Neurosurgery documented in [...]
--- OUTSIDE RECORDS SUMMARY | ~2020-05-29 | XMS | Encounter Summary ---
Demographics + + + | Address | [address] | | | [place] [address] | + + + | Home Phone [...] + + + | Author | [place] PingSome Science [facility] | + + + | Organization | [facility] NanoTech Science [facility] [...] Providers + +------+ + | Care Communications Project Manager Name | Role | Phone [...] Cerebri; | | 2005 | Visit | [place] | | Common Migraine | | | | Neuro-Ophthalmology | | without Mention of | | | | [address] | | Intractable Migraine | | | | Mailcode: CEI | | | | | | [place] [address] | | | | | | [phone] | | | +--------+---------+ + + + [...] 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
--- OUTSIDE RECORDS SUMMARY | ~2020-05-29 | XMS | Encounter Summary ---
Demographics + + + | Address | [address] | | | [place] [address] | + + + | Home Phone | | + + + | Preferred Language | Unknown | + + + | Marital Status | | + + + | Christianity Affiliation | Unknown | + + + | Race | Unknown | + + + | Ethnic Group | Unknown | + + + Author + + + | Author | [facility] | | | and [place] | + + + | Organization | [facility] [...] Providers + +------+ + | Care Die Technician Name | Role | Phone | + +------+ + PCP | Unavailable | + +------+ + Encounter Details +--------+ + + + + | Date | Type | Department | Care Team | Description | +--------+ + + + + | 08/01/ | Hospital | [facility] | | | | 1991 | Encounter | [facility] | | | | | | HEALTH SV [address] | | | | | | [place], | | | | | | [place] [address] | | | | | | [phone] | | | +--------+ + + + [...]
--- OUTSIDE RECORDS SUMMARY | ~2020-05-29 | XMS | Encounter Summary ---
Demographics + + + | Address | [address] | | | [place] [address] | + + + | Home Phone [...] + + + | Author | [place] KARALIT Science [facility] | + + + | Organization | [facility] Hoolai Games Science [facility] | + [...] Team Providers + +------+ + | Care Consultant Teacher Name | Role | Phone | + +------+ + | Brenden Benavides MD | PCP | | + +------+ + Encounter Details +--------+ + + + + | Date | Type | Department | Care Team | Description | +--------+ + + + + | 01/05/ | Telephone | [facility] | Brad Currie MD | | | 2006 | | [place] | | | | | | Neuro-Ophthalmology | | | | | | [address] [facility] | | | | | | Mailcode: PATTI | | | | | | [place] [address] | | | | | | [phone] | | | +--------+ + + + [...]
--- OUTSIDE RECORDS SUMMARY | ~2020-05-29 | XMS | Encounter Summary ---
Demographics + + + | Address | [address] | | | [place] [address] | + + + | Home Phone [...] + + + | Author | [place] Raise5 Science [facility] | + + + | Organization | [facility] Vibrant Media Science [facility] [...] + +------+ + | Care Patient Financial Services Specialist Name | Role | Phone [...] | | | Ave Mailcode: CH8N | [place], [place] | | | | | [facility] | [address] | | | | | and Healing, | [phone] | | | | | [facility] | | | | | | Floor [place], [place] | | | | | | [address] | | | | | | [phone] | | | +--------+ + + + [...]
--- OUTSIDE RECORDS SUMMARY | ~2020-05-29 | XMS | Encounter Summary ---
Demographics + + + | Address | [address] | | | [place] [address] | + + + | Home Phone [...] + + + | Author | [place] Quantum Science [facility] | + + + | Organization | Counts Include [address] [facility] DiaTech Oncology Science [facility] [...] Providers + +------+ + | Care Tank Setter Name | Role | Phone | [...] | | | Ave Mailcode: CH8N | [place], [place] | Encounters | | | | [facility] | [address] | | | | | and [place], | [phone] | | | | | [facility] | | | | | | Floor [place], [place] | | | | | | [address] | | | | | | [phone] | | | +--------+ + + + [...]
--- OUTSIDE RECORDS SUMMARY | ~2020-05-29 | XMS | Encounter Summary ---
Demographics + + + | Address | [address] | | | [place] [address] | + + + | Home Phone [...] + + + | Author | [place].us Science [facility] | + + + | Organization | [facility] Simpleview Science [facility] | + [...] Team Providers + +------+ + | Care Mailroom Personnel Name | Role | Phone | + [...] Cerebri | | 2005 | Visit | [place] | | (Primary Dx) | | | | Neuro-Ophthalmology | | | | | | [address] [facility] | | | | | | Mailcode: PATTI | | | | | | [place] [address] | | | | | | [phone] | | | +--------+---------+ + + + [...] Brad Currie MD Neuro-Ophthalmology and Cerebrovascular Disease Miner Assistant of Ophthalmology, Neurology, and Neurosurgery documented in [...]
--- OUTSIDE RECORDS SUMMARY | ~2020-05-29 | XMS | Encounter Summary ---
Demographics + + + | Address | [address] | | | [place] [address] | + + + | Home Phone [...] + + + | Author | [place] Boomi Science [facility] | + + + | Organization | [facility] Juxinli [facility] | + [...] Team Providers + +------+ + | Care Monitoring Engineer Name | Role | Phone | [...] Cerebri | | 2006 | Visit | [place] | | (Primary Dx) | | | | Neuro-Ophthalmology | | | | | | [address] [facility] | | | | | | Mailcode: PATTI | | | | | | [place] [address] | | | | | | [phone] | | | +--------+---------+ + + + [...] Referred by: CASIMIRO PAYTON MD [address] [place] [address] Symptoms: Patient feels things are better. Vision [...] Brad Currie MD Neuro-Ophthalmology and Cerebrovascular Disease Instant Print Operator of Ophthalmology, Neurology, and Neurosurgery documented [...]
--- OUTSIDE RECORDS SUMMARY | ~2020-05-29 | XMS | Encounter Summary ---
Demographics + + + | Address | [address] | | | [place] [address] | + + + | Home Phone [...] + + + | Author | [place] Viridis [employer] [facility] | + + + | Organization | [facility] Hyglos [facility] | + [...] Providers + +------+ + | Care Non Profit Director Name | Role | Phone | [...] Cerebri | | 2006 | Visit | [facility] | Bud Alexander MD [address] | (Primary Dx) | | | | [facility] [address] | Cassi Hammer | | | | | [address] | [place], [place] | | | | | Eye [place] | [address] | | | | | [place], [place] | [phone] | | | | | [address] | [...]
--- OUTSIDE RECORDS SUMMARY | ~2020-05-29 | XMS | Encounter Summary ---
Demographics + + + | Address | [address] | | | [place] [address] | + + + | Home Phone [...] | Organization | [facility] | [...] Team Providers + +------+ + | Care Law Enforcement Officer Name | Role | Phone | + +------+ + PCP | Unavailable | + +------+ + Encounter Details +--------+ + + + + | Date | Type | Department | Care Team | Description | +--------+ + + + + | 04/24/ | Hospital | [facility] | | | | 2004 | Encounter | MED CTR EMERGENCY | | | | | | CENTER [address] | | | | | | [place] | | | | | | [address] | | | | | | [phone] | | | +--------+ + + + [...]
--- OUTSIDE RECORDS SUMMARY | ~2020-05-29 | XMS | Encounter Summary ---
Demographics + + + | Address | [address] | | | [place] [address] | + + + | Home Phone [...] + + + | Author | [place] Zing Science [facility] | + + + | Organization | [facility] Dataslide Science [facility] | [...] Providers + +------+ + | Care House Decorator Name | Role | Phone | [...] | | | Ave Mailcode: CH8N | [place], [place] | | | | | [facility] | [address] | | | | | and Healing, | [phone] | | | | | [facility] | | | | | | Floor [place], [place] | | | | | | [address] | | | | | | [phone] | | | +--------+---------+ + + + [...]
--- OUTSIDE RECORDS SUMMARY | ~2020-05-29 | XMS | Encounter Summary ---
Demographics + + + | Address | [address] | | | [place] [address] | + + + | Home Phone [...] + + + | Author | [place] Power Union Science [facility] | + + + | Organization | [facility] Memolane Science [facility] | + [...] Providers + +------+ + | Care Transformer Maker Name | Role | Phone | [...] | | [place] Mailcode:OP14B | [place], | | | | | [place] | [place] [address] | | | | | [place], [place] | | | | | | [address] | | | | | | [phone] | | | +--------+ + + + [...]
--- OUTSIDE RECORDS SUMMARY | ~2020-05-29 | XMS | Encounter Summary ---
Demographics + + + | Address | [address] | | | [place] [address] | + + + | Home Phone [...] + + + | Author | [place] Times pace Intelligent Technology [facility] | + + + | Organization | [facility] Pepscan [facility] | + [...] Providers + +------+ + | Care Community Planner Name | Role | Phone | [...] | | | Ave Mailcode: CH8N | [place], [place] | | | | | [facility] | [address] | | | | | and Healing, | [phone] | | | | | [facility] | | | | | | Floor [place], [place] | | | | | | [address] | | | | | | [phone] | | | +--------+---------+ + + + [...] wanted to have LP shunt instead of PIPER INSTALLER shunt because she d oes not weant [...]
--- OUTSIDE RECORDS SUMMARY | ~2020-05-29 | XMS | Encounter Summary ---
Demographics + + + | Address | [address] | | | [place] [address] | + + + | Home Phone [...] | Organization | [facility] | [...] Team Providers + +------+ + | Care Threading Machine Setter Name | Role | Phone | + +------+ + PCP | Unavailable | + +------+ + Encounter Details +--------+ + + + + | Date | Type | Department | Care Team | Description | +--------+ + + + + | 10/10/ | Hospital | [facility] | | | | 1991 | Encounter | [facility] | | | | | | HEALTH [address] | | | | | | [place], | | | | | | [place] [address] | | | | | | [phone] | | | +--------+ + + + [...]
--- OUTSIDE RECORDS SUMMARY | ~2020-05-29 | XMS | Encounter Summary ---
Demographics + + + | Address | [address] | | | [place] [address] | + + + | Home Phone [...] Organization | [facility] | [...] Providers + +------+ + | Care Senior Architect Name | Role | Phone | + +------+ + PCP | Unavailable | + +------+ + Encounter Details +--------+ + + + + | Date | Type | Department | Care Team | Description | +--------+ + + + + | 08/21/ | Hospital | [facility] | | | | 1991 | Encounter | MED CTR EMERGENCY | | | | | | CENTER [address] | | | | | | [place] | | | | | | [address] | | | | | | [phone] | | | +--------+ + + + [...]
--- OUTSIDE RECORDS SUMMARY | ~2020-05-29 | XMS | Encounter Summary ---
Demographics + + + | Address | [address] | | | [place] [address] | + + + | Home Phone [...] Organization | [facility] | | | [...] Providers + +------+ + | Care Outside Maintenance Worker Name | Role | Phone | + +------+ + PCP | Unavailable | + +------+ + Encounter Details +--------+ + + + + | Date | Type | Department | Care Team | Description | +--------+ + + + + | 10/02/ | Hospital | [facility] | | | | 1991 | Encounter | [facility] | | | | | | HEALTH SV [address] | | | | | | [place], | | | | | | [place] [address] | | | | | | [phone] | | | +--------+ + + + [...]
--- OUTSIDE RECORDS SUMMARY | ~2020-05-29 | XMS | Encounter Summary ---
Demographics + + + | Address | [address] | | | [place] [address] | + + + | Home Phone [...] + + | Author | [place] The News Funnel [employer] [facility] | + + + | Organization | [facility] Angiodroid [facility] | + + [...] Providers + +------+ + | Care Funeral Service Apprentice Name | Role | Phone | [...] Refill Request | | 2012 | | [place]/Ophthalmol | MD Perry | | | | | ramonjaneen at [facility] [address] | | | | | | [address] Mailcode: | | | | | | CH[address]P [facility] | | | | | | Health and Healing, | | | | | | [facility] | | | | | | Floor [place], [place] | | | | | | [address] | | | | | | [phone] | | | +--------+--------+ + + + [...]
--- OUTSIDE RECORDS SUMMARY | ~2020-05-29 | XMS | Encounter Summary ---
Demographics + + + | Address | [address] | | | [place] [address] | + + + | Home Phone [...] + + + | Author | [place] [employer] Science [facility] | + + + | Organization | [facility] [employer] Science [facility] [...] Providers + +------+ + | Care Project Planner Name | Role | Phone | [...] | | | Ave Mailcode: CH8N | [place], [place] | | | | | [facility] | [address] | | | | | and Healing, | [phone] | | | | | [facility] | | | | | | Floor [place], [place] | | | | | | [address] | | | | | | [phone] | | | +--------+ + + + [...]
--- OUTSIDE RECORDS SUMMARY | ~2020-05-29 | XMS | Encounter Summary ---
Demographics + + + | Address | [address] | | | [place] [address] | + + + | Home Phone [...] + + + | Author | [place] [employer] Science [facility] | + + + | Organization | [facility] [employer] Science [facility] [...] + +------+ + | Care Food Service Specialist Name | Role | Phone | [...] + + | 06/24/ | Emergency | [facility] Emergency | | | | 2010 | | Department [address] | | | | | | [address] | | | | | | [facility] | | | | | | [place], [place] | | | | | | [address] | | | | | | [phone] | | | +--------+ + + + [...]
--- OUTSIDE RECORDS SUMMARY | ~2020-05-29 | XMS | Encounter Summary ---
Demographics + + + | Address | [address] | | | [place] [address] | + + + | Home Phone [...] + + + | Author | [place] [employer] [facility] | + + + | Organization | [facility] [employer] [facility] | + + + | Address | Unknown | + + + | Phone | Unavailable | + + + Support + + +---------+ + | Name | Relationship | Address | Phone | + + +---------+ + | Ruby Au | ECON | Unknown | | + + +---------+ + Care Team Providers + +------+ + | Care Hydrotreater Operator Name | Role | Phone | + +------+ + | Brenden Benavides MD | PCP | | + +------+ + Encounter Details +--------+ + + + + | Date | Type | Department | Care Team | Description | +--------+ + + + + | 02/23/ | Telephone | [facility] | Brad Currie MD | | | 2006 | | [place] | | | | | | Neuro-Ophthalmology | | | | | | [address] [facility] | | | | | | Mailcode: PATTI | | | | | | [place] [address] | | | | | | [phone] | | | +--------+ + + + [...]
--- OUTSIDE RECORDS SUMMARY | ~2020-05-29 | XMS | Encounter Summary ---
Demographics + + + | Address | [address] | | | [place] [address] | + + + | Home Phone [...] + + + | Author | [place] [employer] Science [facility] | + + + | Organization | [facility] [employer] Science [facility] [...] + +------+ + | Care Technical Support Manager Name | Role | Phone [...] | | | Ave Mailcode: CH8N | [place], [place] | | | | | [facility] | [address] | | | | | and Healing, | [phone] | | | | | [facility] | | | | | | Floor [place], [place] | | | | | | [address] | | | | | | [phone] | | | +--------+ + + + [...]
--- OUTSIDE RECORDS SUMMARY | ~2020-05-29 | XMS | Encounter Summary ---
Demographics + + + | Address | [address] | | | [place] [address] | + + + | Home Phone [...] + + | Author | [place] [employer] Science [facility] | + + + | Organization | [facility] [employer] Science [facility] | + + + | Address | Unknown | + + + | Phone | Unavailable | + + + Support + + +---------+ + | Name | Relationship | Address | Phone | + + +---------+ + | Ruby Au | ECON | Unknown | | + + +---------+ + Care Team Providers + +------+ + | Care Unix Engineer Name | Role | Phone | + +------+ + | Brenden Benavides MD | PCP | | + +------+ + Encounter Details +--------+ + + + + | Date | Type | Department | Care Team | Description | +--------+ + + + + | 02/21/ | Telephone | [facility] | [address] | | | 2006 | | [place] | [address] | | | | | Oculoplastics at | [facility] [place] | | | | | Maicol Perez [address] | [address] | | | | | [address] | | | | | | Eye [place] | | | | | | [facility], 5th floor | | | | | | [place] [address] | | | | | | [phone] | | | +--------+ + + + [...]
--- OUTSIDE RECORDS SUMMARY | ~2020-05-29 | XMS | Encounter Summary ---
Demographics + + + | Address | [address] | | | [place] [address] | + + + | Home Phone [...] | Organization | [facility] | [...] Providers + +------+ + | Care Wood Boring Machine Operator Name | Role | Phone | + +------+ + PCP | Unavailable | + +------+ + Encounter Details +--------+ + + + + | Date | Type | Department | Care Team | Description | +--------+ + + + + | 07/21/ | Hospital | [facility] | | | | 1990 | Encounter | MED CTR EMERGENCY | | | | | | CENTER [address] | | | | | | [place] | | | | | | [address] | | | | | | [phone] | | | +--------+ + + + [...]
--- OUTSIDE RECORDS SUMMARY | ~2020-05-29 | XMS | Encounter Summary ---
Demographics + + + | Address | [address] | | | [place] [address] | + + + | Home Phone [...] | [facility] | [...] + +------+ + | Care Electric Meter Setter Name | Role | Phone | + +------+ + PCP | Unavailable | + +------+ + Encounter Details +--------+ + + + + | Date | Type | Department | Care Team | Description | +--------+ + + + + | 11/22/ | Hospital | [facility] | | | | 1995 | Encounter | MED CTR EMERGENCY | | | | | | CENTER [address] | | | | | | [place] | | | | | | [address] | | | | | | [phone] | | | +--------+ + + + [...]
--- OUTSIDE RECORDS SUMMARY | ~2020-05-29 | XMS | Encounter Summary ---
Demographics + + + | Address | [address] | | | [place] [address] | + + + | Home Phone [...] + + + | Author | [place] [employer] Science [facility] | + + + | Organization | [facility] [employer]Two[employer] [facility] [...] Team Providers + +------+ + | Care Press Feeder Name | Role | Phone | + +------+ + | Brenden Benavidse MD | PCP | | + +------+ [...] | | | REFERRAL TO | | [place], [place] | | | | | NEUROINTERVE | | [address] | | | | | NTIONAL | | Phone: | | | | | RADIOLOGY | | [phone] | | | | | PRACTICE | | Fax: | | | | | | | [phone] | +--------+--------+ + + + + Reason [...] Dx) | | | | Mailcode:OP14B | [place], [place] | | | | | Outpatient Clinic | [address] | | | | | Building [place], | [phone] | | | | | [place] [address] | | | | | | [phone] | | | +--------+---------+ + + + [...] PAYTON MD NEUROSURGERY [facility] [place] [address] Pascual Ballard - 12:00 PM [...] spots" and "tunnel vision." Last saw an guillotine trimmer in [facility] 2 months ago. Reportedl y, this showed that her OS vision was worse - no reports available to me at this time. Was a lso admitted to [facility] for CAPONE about a month ago. [...] Patient was also given a prescription for [place] for CAPONE until she establishs care with [...]
--- OUTSIDE RECORDS SUMMARY | ~2020-05-29 | XMS | Encounter Summary ---
Demographics + + + | Address | [address] | | | [place] [address] | + + + | Home Phone [...] Organization | [facility]ers [...] Team Providers + +------+ + | Care Direct Sales Professional Name | Role | Phone | [...] | | [place] | [place] [address] | | | | | [address] | | | | | | [phone] | | | +--------+ + + + [...]
--- OUTSIDE RECORDS SUMMARY | ~2020-05-29 | XMS | Encounter Summary ---
Demographics + + + | Address | [address] | | | [place] [address] | + + + | Home Phone [...] Organization | [facility] | [...] Team Providers + +------+ + | Care Therapeutic Assistant Name | Role | Phone | + +------+ + PCP | Unavailable | + +------+ + Encounter Details +--------+ + + + + | Date | Type | Department | Care Team | Description | +--------+ + + + + | 05/18/ | Hospital | [facility] | | | | 1991 | Encounter | MED CTR WOMENS | | | | | | HEALTH SV [address] | | | | | | [place], | | | | | | [place] [address] | | | | | | [phone] | | | +--------+ + + + [...]
--- OUTSIDE RECORDS SUMMARY | ~2020-05-29 | XMS | Encounter Summary ---
Demographics + + + | Address | [address] | | | [place] [address] | + + + | Home Phone [...] + + + | Author | [place] [employer] Science [facility] | + + + | Organization | [facility] | + + [...] Providers + +------+ + | Care Technical Sme Name | Role | Phone | + [...] | | [place] Mailcode:OP14B | Sandra Maloney [place], | | | | | [facility] | [place] [address] | | | | | [place], [place] | | | | | | [address] | | | | | | [phone] | | | +--------+ + + + [...]
--- OUTSIDE RECORDS SUMMARY | ~2020-05-29 | XMS | Encounter Summary ---
Demographics + + + | Address | [address] | | | [place] [address] | + + + | Home Phone [...] + + + | Organization | and [facility] | [...] Team Providers + +------+ + | Care Small Engine Technician Name | Role | Phone | + +------+ + PCP | Unavailable | + +------+ + Encounter Details +--------+ + + + + | Date | Type | Department | Care Team | Description | +--------+ + + + + | 08/16/ | Hospital | [facility] | | | | 1990 | Encounter | MED CTR EMERGENCY | | | | | | CENTER [address] | | | | | | [place] | | | | | | [address] | | | | | | [phone] | | | +--------+ + + + [...]
--- OUTSIDE RECORDS SUMMARY | ~2020-05-29 | XMS | Encounter Summary ---
Demographics + + + | Address | [address] | | | [place] [address] | + + + | Home Phone [...] + + + | Author | [place] [employer] [facility] | + + + | Organization | [facility] [employer] [facility] | + + [...] Providers + +------+ + | Care Information Receptionist Name | Role | Phone | [...] Cerebri | | 2006 | Visit | [facility] | Bud Alexander MD [address] | (Primary Dx) | | | | [facility] [address] | Cassi Hammer | | | | | [address] | [place], [place] | | | | | [facility] | [address] | | | | | [place], [place] | [phone] | | | | | [address] | [...]
--- OUTSIDE RECORDS SUMMARY | ~2020-05-29 | XMS | Encounter Summary ---
Demographics + + + | Address | [address] | | | [place] [address] | + + + | Home Phone [...] | Organization | [facility] | [...] Team Providers + +------+ + | Care Fountain Pen Turner Name | Role | Phone | [...] left hand | [address] | | | | n | Weakness of | [address] | [place], | | | | | both hands | [place], | [place] [address] | | | | | [place] left | [place] [address] | Phone: | | | | | wrist Pain | Phone: | [phone] | | | | | of right | [phone] | Fax: | | | | | thumb | Fax: | [phone] | | | | | Trigger | [phone] | | | | | | finger of | | | | | | | right thumb | | | | | | | Procedures | | | | | | | [place] | | | | | | | &/SENS > | | | | | | | NRV CNDJ | | | | | | | PRECONF | | | | | | | ELTRODE LIMB | | | | | | | [place] NEEDLE | | | | | | [...] | | | | | Trigger | [address] | Jairo Kirk | | | | | finger of | [place], | [place] | | | | | right thumb | [place] [address] | [address] | | | | | | Phone: | Phone: | | | | | | [phone] | [phone] | | | | | | Fax: | Fax: | | | | | | [phone] | [phone] | +--------+ + + + + + [...] | | Rehabilitatio | tunnel | [place]-C [address] | [address] | | | | n | syndrome on | | [place], | | | | | left | [place] | [place] [address] | | | | | | WAY | Phone: | | | | | | [place], | [phone] | | | | | | [place] [address] | Fax: | | | | | | Phone: | [phone] | | | | | | [phone] | | | | | | | Fax: | | | | | | | [phone] | | +--------+--------+ + + + + Encounter Details +--------+---------+ + + + | Date | Type | Department | Care Team | Description | +--------+---------+ + + + | 01/03/ | Office | [facility] [place] | Amanuel Jennings, | Numbness of left | | 2019 | Visit | PHYSIATRY [address] | MD [address] | hand (Primary Dx); | | | | [address] | [place] | Weakness of both | | | | [place] | [address] | hands; Mass of left | | | | [address] | | wrist; Pain of right | | | | [phone] | | thumb; Trigger | | | [...] this encounter Patient Instructions Patient Instructions Adelaide Santa [facility] - 01/03/2019 1:00 PM PSTContinue t o wear carpal tunnel wrist splints. [...] history of bilateral carpal tunnel release in 2006, surgery was successful but stated her symptoms [...] Acute low back pain Antisocial personality disorder ([facility]) Anxiety disorder Asthma Benign essential hypertension Chronic back pain Chronic obstructive lung disease (HCC) Chronic posttraumatic stress disorder Depressive disorder Diabetes mellitus type 2 in obese (HCC) Gastroesophageal reflux disease Heroin dependence ([facility]) Hoarse Hypertensive disorder Insomnia with sleep apnea IV drug abuse ([facility]) Low back strain Numbness of left hand Obstructive sleep apnea of adult Opioid dependence on agonist therapy ([facility]) Other chronic pain Panic disorder without agoraphobia with severe panic attacks Polysubstance dependence ([facility]) Sedative, hypnotic or anxiolytic dependence, 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 4/5 hand adjunct psychology professor on the left Reflexes: 2+ normal and [...] tunnel, peripheral neuropathy, and cervical radiculopathy. Annabella S Roe's clinical presentation is most consistent with recurrent [...] as scribed by in my presence, Adelaide Satna, [facility] and are both accurate and comp lete. [...]
--- OUTSIDE RECORDS SUMMARY | ~2020-05-29 | XMS | Encounter Summary ---
Demographics + + + | Address | [address] | | | [place] [address] | + + + | Home Phone [...] + + + | Author | [place] [employer] [facility] | + + + | Organization | [facility] [employer] [facility] | + [...] Team Providers + +------+ + | Care Ticketing Agent Name | Role | Phone | [...] Request (Pt | | 2006 | | [place] | Cassi Hammer | requests more pain | | | | Oculoplastics at | [place], [place] | medication) | | | | [address] | [address] | | | | | [address] | [phone] | | | | | Eye [place] | | | | | | [facility] floor | | | | | | [place] [address] | | | | | | [phone] | | | +--------+--------+ + + + [...]
--- OUTSIDE RECORDS SUMMARY | ~2020-05-29 | XMS | Encounter Summary ---
Demographics + + + | Address | [address] | | | [place] [address] | + + + | Home Phone [...] | [facility] | | [...] Team Providers + +------+ + | Care Wellfield Technician Name | Role | Phone | + +------+ + PCP | Unavailable | + +------+ + Encounter Details +--------+ + + + + | Date | Type | Department | Care Team | Description | +--------+ + + + + | 09/27/ | Hospital | [facility] | | | | 1991 | Encounter | MED CTR WOMENS | | | | | | HEALTH SV [address] | | | | | | [place], | | | | | | [place] [address] | | | | | | [phone] | | | +--------+ + + + [...]
--- OUTSIDE RECORDS SUMMARY | ~2020-05-29 | XMS | Encounter Summary ---
Demographics + + + | Address | [address] | | | [place] [address] | + + + | Home Phone [...] + + + | Author | [place] [employer] [facility] | + + + | Organization | [facility] [employer] Science [facility] | + [...] Providers + +------+ + | Care Emergency Care Tech Name | Role | Phone | [...] | Headache | | 2015 | | [place] | [address] | | | | | Neuro-Ophthalmology | [facility] [place] | | | | | at [facility] [address] | [address] | | | | | Ave Mailcode: [facility] | [phone] | | | | | [facility] | | | | | | and Healing, | | | | | | Building | | | | | | Floor [place], [place] | | | | | | [address] | | | | | | [phone] | | | +--------+ + + + [...]
--- OUTSIDE RECORDS SUMMARY | ~2020-05-29 | XMS | Encounter Summary ---
Demographics + + + | Address | [address] | | | [place] [address] | + + + | Home Phone [...] + + | Author | [place] [employer] Science [facility] | + + + | Organization | [facility] [employer] Science [facility] [...] Providers + +------+ + | Care Paper Carrier Name | Role | Phone | [...] ) | | | | Physician's | [place], [place] | | | | | Pavilion, 2nd floor | [address] | | | | | [place], [place] | [phone] | | | | | [address] | | | | | | [phone] | | | +--------+ + + + [...]
--- OUTSIDE RECORDS SUMMARY | ~2020-05-29 | XMS | Encounter Summary ---
Demographics + + + | Address | [address] | | | [place] [address] | + + + | Home Phone [...] + + + | Author | [place] [employer] Science [facility] | + + + | Organization | [facility] [email or web address] [facility] | + [...] Team Providers + +------+ + | Care Pressing Machine Operator Name | Role | Phone [...] | Headache | | 2015 | | [place] | [address] | | | | | Neuro-Ophthalmology | [facility] [place] | | | | | at [facility] [address] | [address] | | | | | Ave Mailcode: [facility] | [phone] | | | | | [facility] | | | | | | and Healing, | | | | | | Building | | | | | | Floor [place], [place] | | | | | | [address] | | | | | | [phone] | | | +--------+ + + + [...]
--- OUTSIDE RECORDS SUMMARY | ~2020-05-29 | XMS | Encounter Summary ---
Demographics + + + | Address | [address] | | | [place] [address] | + + + | Home Phone [...] + + | Author | [place] [employer] Science [facility] | + + + | Organization | P[facility] [employer] [facility] | + [...] Team Providers + +------+ + | Care Pack Changer Name | Role | Phone | + [...] | | | | | | [address] | | | | | | | [facility] | | | | | | | [place], | | | | | | | [address] [place] [address] | | | | | | | [place], [place] | | | | | | | [address] Phone: | | | | | | | [phone] | | | | | | | Fax: | | | | | | | [phone] | +--------+--------+ + + + + Encounter Details +--------+ + + + + | Date | Type | Department | Care Team | Description | +--------+ + + + + | 03/26/ | Procedure | [facility] | | Visual field testing | | 2012 | | [facility] | | | | | | [place] at [facility] [address] | | | | | | [address] | | | | | | Mailcode: CH11P | | | | | | [facility] | | | | | | and Healing, | | | | | | | | | | | | [place], [place] | | | | | | [address] | | | | | | [phone] | | | +--------+ + + + [...] PDT Annabella Au was seen in the [facility] [place] [facility] Department today, 2012, for 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 documented in this encounter Plan of Treatment Not on filedocumented as of this encounter Procedures + +--------+ + + + | Procedure Name | Priori | Date/Time | Associated Diagnosis | Comments | | | ty | | | | + +--------+ + + + | [place] VISUAL FIELD | Routin | 03/26/2013 | [...]
--- OUTSIDE RECORDS SUMMARY | ~2020-05-29 | XMS | Encounter Summary ---
Demographics + + + | Address | [address] | | | [place] [address] | + + + | Home Phone [...] + | Organization | [facility] [...] Team Providers + +------+ + | Care Airflight Attendants Supervisor Name | Role | Phone | + +------+ + PCP | Unavailable | + +------+ + Encounter Details +--------+ + + + + | Date | Type | Department | Care Team | Description | +--------+ + + + + | 05/15/ | Hospital | [facility] | | | | 1991 | Encounter | MED CTR XRAY [address] | | | | | | [address] | | | | | | [place] [address] | | | | | | [phone] | | | +--------+ + + + [...]
--- OUTSIDE RECORDS SUMMARY | ~2020-05-29 | XMS | Clinical Summary ---
Demographics + + + | Address | [address] | | | [place] [address] | + + + | Home Phone [...] Team Providers + +------+ + | Care Splicer Machine Operator Name | Role | Phone | + +------+ + | Dennis Maddox | PCP | | + +------+ + Source Comments REBECA is fully live on both [facility] and [facility] InPatient[facility] Allergies + + + [...] | | | + +--------+ +--------+-------+---------+--------+ | GAS APPLIANCE SERVICER MEDICAID | GAS APPLIANCE SERVICER | xxxxxxxx | 11/28/19 | | | [...] | 1975 | [phone] | [place] [address] | | | rene | | | 0 (Home) | | + +--------+ +--------+ + + Advance Directives + + + + + | Type | Date Recorded | Patient | Explanation | | | | Doughnut Glazier | | + + + + + | Advance | | | | | Directives and | | | | | Living Will | | | | + + + + + | Power of | | | | | Front Facer | | | | + + + [...]
--- OUTSIDE RECORDS SUMMARY | ~2020-05-29 | XMS | Encounter Summary ---
Demographics + + + | Address | [address] | | | [place] [address] | + + + | Home Phone [...] + + + | Author | [place] [employer] Science [facility] | + + + | Organization | [facility] MiName Science [facility] [...] Team Providers + +------+ + | Care Tunnel Elastic Operator Zigzag Name | Role | Phone | + [...] Other | | 2005 | | [facility] | [place] [address] | | | | | [address] Mailcode:OP14B | [place], [place] | | | | | [facility] | [address] | | | | | [place], [place] | | | | | | [address] | | | | | | [phone] | | | +--------+ + + + [...]
--- OUTSIDE RECORDS SUMMARY | ~2020-05-29 | XMS | Encounter Summary ---
Demographics + + + | Address | [address] | | | [place] [address] | + + + | Home Phone [...] + + + | Author | [place] [employer] Science [facility] | + + + | Organization | [facility] ERA [employer] Science [facility] [...] Team Providers + +------+ + | Care Grape Pruner Name | Role | Phone | + [...] | | | Ave Mailcode: CH8N | [place], [place] | | | | | [facility] | [address] | | | | | and Healing, | [phone] | | | | | [facility] | | | | | | Floor [place], [place] | | | | | | [address] | | | | | | [phone] | | | +--------+ + + + [...]
--- OUTSIDE RECORDS SUMMARY | ~2020-05-29 | XMS | Encounter Summary ---
Demographics + + + | Address | [address] | | | [place] [address] | + + + | Home Phone [...] + + + | Author | [place] [employer] Science [facility] | + + + | Organization | [facility] [employer] Science [facility] [...] Team Providers + +------+ + | Care Melt Down Furnace Operator Name | Role | Phone [...] Kirk | | | | | CH8N [facility] | [place], [place] | | | | | Health and Healing, | [address] | | | | | Building [address], [address]th | | | | | | Floor [place], [place] | | | | | | [address] | | | | | | [phone] | | | +--------+ + + + [...]
--- OUTSIDE RECORDS SUMMARY | ~2020-05-29 | XMS | Encounter Summary ---
Demographics + + + | Address | [address] | | | [place] [address] | + + + | Home Phone [...] + + + | Author | [place] [employer] Science [facility] | + + + | Organization | [facility] [employer] [facility] | + + [...] Providers + +------+ + | Care Oil Dipper Name | Role | Phone | + [...] | | | | | CH8N [facility] | [place], [place] | | | | | Health and Healing, | [address] | | | | | Building | | | | | | Floor [place], [place] | | | | | | [address] | | | | | | [phone] | | | +--------+--------+ + + + [...]
--- OUTSIDE RECORDS SUMMARY | ~2020-05-29 | XMS | Encounter Summary ---
Demographics + + + | Address | [address] | | | [place] [address] | + + + | Home Phone [...] + + + | Author | [place] [employer] [facility] | + + + | Organization | [facility] [employer] [facility] | + + + | Address | Unknown | + + + | Phone | Unavailable | + + + Support + + +---------+ + | Name | Relationship | Address | Phone | + + +---------+ + | Ruby Au | ECON | Unknown | | + + +---------+ + Care Team Providers + +------+ + | Care Audiometrist Name | Role | Phone | + [...] | | | | | | | [facility] | | | | | | | Hospital | | | | | | | [place], [place] | | | | | | | [address] | | | | | | | Phone: | | | | | | | [phone] | | | | | | | Fax: | | | | | | | [phone] | +--------+--------+ + + + + Encounter Details +--------+ + + + + | Date | Type | Department | Care Team | Description | +--------+ + + + + | 05/07/ | Hospital | [facility] [address] | [place]y [place], | | | 2007 | Encounter | [address] | MD [place] | | | | | 11B [facility] | MD Holden,PhD | | | | | [place] | | | | | | [address] | | | | | | [phone] | | | +--------+ + + + [...] Dennis, | | | | | | M.D.Needle Process Felt Goods Supervisor surgeon: . | | | | | [...] | | | | | cervical region, PORTUGUESE and | | | | | | [...] artery. | | | | | | [id number] Berenstein | | | | | | [...]
--- OUTSIDE RECORDS SUMMARY | ~2020-05-29 | XMS | Encounter Summary ---
Demographics + + + | Address | [address] | | | [place] [address] | + + + | Home Phone [...] + + + | Author | [place] [employer] [facility] | + + + | Organization | [facility] [employer] [facility] | + + + | Address | Unknown | + + + | Phone | Unavailable | + + + Support + + +---------+ + | Name | Relationship | Address | Phone | + + +---------+ + | Ruby Au | ECON | Unknown | | + + +---------+ + Care Team Providers + +------+ + | Care Cobol Mainframe Developer Name | Role | Phone | [...] | | | | | Physician's | [place], [place] | | | | | [place], [facility] floor | [address] | | | | | [place], [place] | [phone] | | | | | [address] | | | | | | [phone] | | | +--------+ + + + [...]
--- OUTSIDE RECORDS SUMMARY | ~2020-05-29 | XMS | Encounter Summary ---
Demographics + + + | Address | [address] | | | [place] [address] | + + + | Home Phone [...] + + + | Author | [place] [employer] [facility] | + + + | Organization | [facility] [employer] [facility] | + + [...] Providers + +------+ + | Care Health Science Specialist Name | Role | Phone [...] + + | 06/24/ | Emergency | [facility] Emergency | | | | 2010 | | Department [address] | | | | | | [address] | | | | | | [facility] | | | | | | [place], [place] | | | | | | [address] | | | | | | [phone] | | | +--------+ + + + [...]
--- OUTSIDE RECORDS SUMMARY | ~2020-05-29 | XMS | Encounter Summary ---
Demographics + + + | Address | [address] | | | [place] [address] | + + + | Home Phone [...] + + | Author | [place] [employer] [facility] | + + + | Organization | [facility] [employer] [facility] | + [...] Cerebri; | | 2005 | Visit | [place] | | Common Migraine | | | | Neuro-Ophthalmology | | without Mention of | | | | 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
--- OUTSIDE RECORDS SUMMARY | ~2020-05-29 | XMS | Encounter Summary ---
Demographics + + + | Address | [address] | | | [place] [address] | + + + | Home Phone [...] + + + | Author | [place] [employer] [facility] | + + + | Organization | [facility] [employer] [facility] | + + [...] Providers + +------+ + | Care Youth Specialist Name | Role | Phone | [...] Kirk | | | | | CH[facility] | [place], [place] | | | | | Health and Healing, | [address] | | | | | Building 1, 8th | | | | | | Floor [place], [place] | | | | | | [address] | | | | | | [phone] | | | +--------+ + + + [...]
--- OUTSIDE RECORDS SUMMARY | ~2020-05-29 | XMS | Encounter Summary ---
Demographics + + + | Address | [address] | | | [place] [address] | + + + | Home Phone [...] + + + | Author | [place] [employer] [facility] | + + + | Organization | [facility] | + [...] Team Providers + +------+ + | Care Preventive Medicine Physician Name | Role | Phone | [...] | | | Ave Mailcode: CH8N | [place], [place] | | | | | [facility] | [address] | | | | | and Healing, | [phone] | | | | | [facility] | | | | | | Floor [place], [place] | | | | | | [address] | | | | | | [phone] | | | +--------+ + + + [...]
--- OUTSIDE RECORDS SUMMARY | ~2020-05-29 | XMS | Encounter Summary ---
Demographics + + + | Address | [address] | | | [place] [address] | + + + | Home Phone [...] + + + | Author | [place] M[employer]opia [facility] | + + + | Organization | [facility] [employer] [facility] | + [...] Providers + +------+ + | Care District Resource Officer Name | Role | Phone | [...] Letter From | | 2007 | | [facility] | [address] | Specialist | | | | and Healing [address] | [place], [place] | | | | | [address] Mailcode: | [address] | | | | | [address] [facility] | [phone] | | | | | Health and Healing, | | | | | | [facility] | | | | | | Floor [facility] [place] | | | | | | [address] | | | | | | [phone] | | | +--------+ + + + [...]
--- OUTSIDE RECORDS SUMMARY | ~2020-05-29 | XMS | Encounter Summary ---
Demographics + + + | Address | [address] | | | [place] [address] | + + + | Home Phone [...] + + | Author | [place] [employer] [facility] | + + + | Organization | [facility] [employer] [facility] [...] Team Providers + +------+ + | Care Bottom Cementer Name | Role | Phone | [...] | | Ophthalmology | | Non-[facility] | [place], | | | | | | Epic Dept | Graciela Guardado MD | | | | | | | [address] | | | | | | | Ave | | | | | | | [place], [place] | | | | | | | [address] | | | | | | | Phone: | | | | | | | [phone] | | | | | | | Fax: | | | | | | | [phone] | +--------+--------+ + + + + Encounter Details +--------+---------+ + + + | Date | Type | Department | Care Team | Description | +--------+---------+ + + + | 03/26/ | Office | [facility] | Mo Hood | Pseudotumor cerebri | | 2012 | Visit | [facility]hthalmol | MD Perry | (Primary Dx); | | | | ogy at [facility] [address] | | Depression; Type II | | | | [address] [place] Mailcode: | | or unspecified type | | | | [facility] Center for | | diabetes mellitus | | | | Health and Healing, | | without mention of | | | | Building | | complication, not | | | | Floor [place], [place] | | stated as | | | | [address] | | uncontrolled; PTSD | | | | [phone] | | (post-traumatic | | | | [...] HPI: 37 y.o. year old female from [place] : Patient presents with: IIH - Idiopathic [...] they live [place] hours away in [facility]. Tobacco use: reports that she has [...] Right Left Disc 1+ Optic disc edema, +QUIRK SANDER 2+ Optic disc edema, RNFL whitening at the superonasal borde r of the disc. There is spontaneous pulsing of the entire disc head with heart beat. C/D Ratio 0.1 0.1 Macula Normal Normal Vessels Engorged. tortuous Engorged. tortuous Periphery Normal Normal Neuro/Psych Oriented x3: Yes Mood/Affect: Normal See [facility] Ophthalmology Exam Module for additional exam [...] sheath fenestra tion (by Dr. Hughes at [facility] in 2006) and s/p multiple lumboperitoneal shunt [...] Dr. Lux. Mo Hood MD Resident Physician [facility], PGY-2 [facility] Physician: Mo [...]
--- OUTSIDE RECORDS SUMMARY | ~2020-05-29 | XMS | Encounter Summary ---
Demographics + + + | Address | [address] | | | [place] [address] | + + + | Home Phone [...] Organization | [facility] | [...] + +------+ + | Care Assisted Living Director Name | Role | Phone | + +------+ + PCP | Unavailable | + +------+ + Encounter Details +--------+ + + + + | Date | Type | Department | Care Team | Description | +--------+ + + + + | 07/17/ | Hospital | [facility] | Domingo Darby, | | | 2010 | Encounter | [facility] | [address] | | | | | EMERGENCY CENTER | [place] [address] | | | | | [address] | [phone] | | | | | [place], [place] | | | | | | [address] | | | | | | [phone] | | | +--------+ + + + [...] 07/17/2011 Age/Sex: 35Y / F : 1975 [id number] / [id number] CHIEF COMPLAINT: Anxiety. HISTORY OF PRESENT ILLNESS: [...] saturatio ns 95% on room air. INTEGUMENT: [place], warm and dry. No lesions, lacerations or abrasions. HEENT: Normocephalic, atraumatic. Pupils are equal, round, and reactive to light and accomm odation. EOMs are intact. MUSCULOSKELETAL: Moves all extremities well. HEART: Regular rate and rhythm. LUNGS: Clear. ABDOMEN: Benign. GENITOURINARY/RECTAL: Deferred. Jt STEWART ADM:07/17/11 [id number] DEP ER EMERGENCY DEPARTMENT RECORD [id number] [facility] JASPER Dorantes E-Sign: N [facility] MD Lizeth Smith THIS REPORT IS CONFIDENTIAL AND NOT TO BE RELEASED WITHOUT PROPER AUTHORIZATION. [facility] NEUROLOGIC: Intact. PSYCHIATRIC: Calm and cooperative. EMERGENCY [...] help with sleep at night. [facility]. Return if symptoms worsen. Discharged stable. JASPER Mc MD P [facility] #[id number] cc: MD Maryellen Parker ARNP Electronically Signed 07/20/11 0136 Domingo Darby MD Jt STEWART S ADM:07/17/11 [id number] [facility] EMERGENCY DEPARTMENT RECORD [id number] [facility] JASPER Dorantes E-Sign: [facility] MD Lizeth Smith THIS REPORT IS CONFIDENTIAL AND NOT TO BE RELEASED WITHOUT PROPER AUTHORIZATION.Electronica lly signed by JASPER Mc at 10/03/2013 10:53 AM PSTdocumented in this encounter Plan of Treatment Not on filedocumented as of this encounter Visit Diagnoses Not on filedocumented in this encounter"
--- OUTSIDE RECORDS SUMMARY | ~2020-05-29 | XMS | Encounter Summary ---
Demographics + + + | Address | [address] | | | [place] [address] | + + + | Home Phone [...] | Organization | [facility] | [...] + +------+ + | Care Balance Wheel Hand Filer Name | Role | Phone | + +------+ + PCP | Unavailable | + +------+ + Encounter Details +--------+ + + + + | Date | Type | Department | Care Team | Description | +--------+ + + + + | 10/21/ | Hospital | [facility] | | | | 1991 | Encounter | [facility] | | | | | | [facility] [address] | | | | | | [place], | | | | | | [place] [address] | | | | | | [phone] | | | +--------+ + + + [...]
--- OUTSIDE RECORDS SUMMARY | ~2020-05-29 | XMS | Encounter Summary ---
Demographics + + + | Address | [address] | | | [place] [address] | + + + | Home Phone [...] + | Organization | [facility] | | [...] Providers + +------+ + | Care Construction Project Engineer Name | Role | Phone | [...] [address] | | | | | [place] [address] | [facility] | | | | | [address] [place] | [place] [address] | | | | | [address] | [phone] | | | | | [phone] | | | +--------+ + + + [...]
--- OUTSIDE RECORDS SUMMARY | ~2020-05-29 | XMS | Encounter Summary ---
Demographics + + + | Address | [address] | | | [place] [address] | + + + | Home Phone [...] + + + | Author | [place] [employer] [facility] | + + + | Organization | [email or web address] | [...] Team Providers + +------+ + | Care Dietary Clerk Name | Role | Phone | [...] Operative Report | | 2006 | | [place] at [facility] [address]69 | | | | | Transcribed | [address] | | | | | | Mailcode: Center | | | | | | for Health and | | | | | | Healing, [facility] 2 | | | | | | [place], [place] | | | | | | [address] | | | | | | [phone] | | | +--------+ + + + [...] | 02/07/2007 12:00 AM PDT | | [id number] | | [id number] [place] [id number] | | | | Date: 02/07/2007 | | | | Attending Surgeon: Hay Hughes M.D. | | | | Television Parts Tester(s): Pascual Bermudez M.D. | | | | [...] medial orbital | | septum. The assistant director of financial aid retracted the orbital fat bag with a [...] | | KYM / LANETTE | | [id number] / [id number] / [id number] / [id number] | | | | | | | | cc: | | | | | | Brad Currie M.D. | | [facility] | | | | | | Brenden Benavides M.D. | | [facility] | | [address] [facility] [address] | | [place] [address] | | | | | | Electronically signed by Hay Hguhes 02-12-2007 05:13:05 PM | | | | | + + documented in this encounter Visit Diagnoses Not on filedocumented in this encounter"
--- OUTSIDE RECORDS SUMMARY | ~2020-05-29 | XMS | Encounter Summary ---
Demographics + + + | Address | [address] | | | [place] [address] | + + + | Home Phone [...] + + + | Author | [place] [employer] Science [facility] | + + + | Organization | [facility] Clever [facility] | + + + | Address | Unknown | + + + | Phone | Unavailable | + + + Support + + +---------+ + | Name | Relationship | Address | Phone | + + +---------+ + | Ruby Au | ECON | Unknown | | + + +---------+ + Care Team Providers + +------+ + | Care Waterworks Chief Engineer Name | Role | Phone | [...] Refill Request | | 2006 | | [place] | [address] | | | | | Oculoplastics at | Rd [place], [place] | | | | | [facility] [address] | [address] | | | | | [address] | | | | | | Eye [place] | | | | | | [facility], [address] [place] [address] | | | | | | [place] [address] | | | | | | [phone] | | | +--------+ + + + [...]
--- OUTSIDE RECORDS SUMMARY | ~2020-05-29 | XMS | Encounter Summary ---
Demographics + + + | Address | [address] | | | [place] [address] | + + + | Home Phone [...] + + + | Author | [place] [employer] [facility] | + + + | Organization | [facility] [employer] [facility] | + + + | Address | Unknown | + + + | Phone | Unavailable | + + + Support + + +---------+ + | Name | Relationship | Address | Phone | + + +---------+ + | Ruby Au | ECON | Unknown | | + + +---------+ + Care Team Providers + +------+ + | Care Cyber Defense Incident Responder Name | Role | Phone | + [...] | | [place] Mailcode:OP14B | [place], | | | | | [facility] | [place] [address] | | | | | [place], [place] | | | | | | [address] | | | | | | [phone] | | | +--------+ + + + [...]
--- OUTSIDE RECORDS SUMMARY | ~2020-05-29 | XMS | Encounter Summary ---
Demographics + + + | Address | [address] | | | [place] [address] | + + + | Home Phone [...] + + + | Author | [place] [employer] [facility] | + + + | Organization | [facility] [employer] [facility] [...] Team Providers + +------+ + | Care Spring Tester Name | Role | Phone | [...] | | | Ave Mailcode: CH8N | [place], [place] | | | | | [facility] | [address] | | | | | and Healing, | [phone] | | | | | [facility] | | | | | | Floor [place], [place] | | | | | | [address] | | | | | | [phone] | | | +--------+ + + + [...]
--- OUTSIDE RECORDS SUMMARY | ~2020-05-29 | XMS | Encounter Summary ---
Demographics + + + | Address | [address] | | | [place] [address] | + + + | Home Phone [...] + + + | Author | [place] [employer] [facility] | + + + | Organization | [facility] [employer] [facility] | + [...] Team Providers + +------+ + | Care Contour Band Saw Operator Vertical Name | Role | Phone | + [...] CH8N | | | | | | [facility] | | | | | | and Healing, | | | | | | Building 1, 8th | | | | | | Floor [place], [place] | | | | | | [address] | | | | | | [phone] | | | +--------+ + + + [...]
--- OUTSIDE RECORDS SUMMARY | ~2020-05-29 | XMS | Encounter Summary ---
Demographics + + + | Address | [address] | | | [place] [address] | + + + | Home Phone [...] + + + | Author | [place] [employer] [facility] | + + + | Organization | [facility] [employer] [facility] | + [...] Providers + +------+ + | Care Explosive Technician Name | Role | Phone | + +------+ + | Brenden Benavides MD | PCP | | + +------+ + Encounter Details +--------+ + + + + | Date | Type | Department | Care Team | Description | +--------+ + + + + | 02/23/ | Telephone | [facility] | Brad Currie MD | | | 2006 | | [place] | | | | | | Neuro-Ophthalmology | | | | | | [address] [facility] | | | | | | Mailcode: PATTI | | | | | | [place] [address] | | | | | | [phone] | | | +--------+ + + + [...]
--- OUTSIDE RECORDS SUMMARY | ~2020-05-29 | XMS | Encounter Summary ---
Demographics + + + | Address | [address] | | | [place] [address] | + + + | Home Phone [...] + + + | Author | [place] [employer] [facility] | + + + | Organization | [facility] [employer] [facility] [...] Team Providers + +------+ + | Care Dietist Name | Role | Phone | + +------+ + | Pedro Luis Sams MD | PCP | | + +------+ + Encounter Details +--------+ + + + + | Date | Type | Department | Care Team | Description | +--------+ + + + + | 10/19/ | Telephone | [facility] | Funmilayo Osorio MD | | | 2010 | | [place]/Ophthalmol | [address] | | | | | [place] at [facility] [address] | [place], [place] | | | | | [address] Mailcode: | [address] | | | | | [address] [facility] | [phone] | | | | | Health and Healing, | | | | | | [facility] | | | | | | [place], [place] | | | | | | [address] | | | | | | [phone] | | | +--------+ + + + [...]
--- OUTSIDE RECORDS SUMMARY | ~2020-05-29 | XMS | Encounter Summary ---
Demographics + + + | Address | [address] | | | [place] [address] | + + + | Home Phone [...] + + + | Author | [place] [employer] [facility] | + + + | Organization | [facility] [employer] [facility] [place] [...] Providers + +------+ + | Care Harness Installer Name | Role | Phone | [...] CH8[facility] | | | | | | [facility] | | | | | | and Healing, | | | | | | Building 1, 8th | | | | | | Floor [place], [place] | | | | | | [address] | | | | | | [phone] | | | +--------+ + + + [...]
--- OUTSIDE RECORDS SUMMARY | ~2020-05-29 | XMS | Clinical Summary ---
Demographics + + + | Address | [address] | | | [place] [address] | + + + | Home Phone [...] | [facility] | [...] Team Providers + +------+ + | Care Generalist Name | Role | Phone | + [...] +---------+--------+ | [place] | MEDICA | [id number] | 11/09/ | [phone] | | Medica | | | ID [place] | | 2018-P | 2 | | id | | | PLUS | | resent | | | | + +--------+ +--------+ +---------+--------+ | [facility] | IHS | [id number] | 11/08/ | | | Indemn | [...] al/Fam | | 1975 | [phone] | [place] [address] | | | rene | | | 5 (Home) | | + +--------+ +--------+ + + Advance Directives + + + + + | Type | Date Recorded | Patient | Explanation | | | | Shuttle Preparation Supervisor | | + + + + + | Power of | | | | | Skiff Operator | | | | + + + + + | Advance | | | | | Directive | | | | + + + + +
--- OUTSIDE RECORDS SUMMARY | ~2020-05-29 | XMS | Encounter Summary ---
Demographics + + + | Address | [address] | | | [place] [address] | + + + | Home Phone [...] | Organization | [facility] | | [...] Team Providers + +------+ + | Care Floral Manager Name | Role | Phone | + +------+ + PCP | Unavailable | + +------+ + Encounter Details +--------+ + + + + | Date | Type | Department | Care Team | Description | +--------+ + + + + | 10/18/ | Hospital | [facility] | | | | 1991 | Encounter | [facility] | | | | | | HEALTH [address] | | | | | | [place], | | | | | | [place] [address] | | | | | | [phone] | | | +--------+ + + + [...]
--- OUTSIDE RECORDS SUMMARY | ~2020-05-29 | XMS | Encounter Summary ---
Demographics + + + | Address | [address] | | | [place] [address] | + + + | Home Phone [...] + + + | Author | [place] [employer] [facility] | + + + | Organization | [facility] [employer] [facility] [...] Providers + +------+ + | Care Gunite Mixer Name | Role | Phone | [...] | | | | | cerebri | [address] | | | | | | Procedures | Ave | | | | | | CONSULT TO | [place], [place] | | | | | | [facility] | [address] | | | | | | | Phone: | | | | | | | [phone] | | | | | | | Fax: | | | | | | | [phone] | | +--------+--------+ + + + + [...] Cerebri | | 2005 | Visit | [facility] | [address] | (Primary Dx) | | | | Rd Mailcode:OP14B | [place], [place] | | | | | [facility] | [address] | | | | | [place], [place] | [phone] | | | | | [address] | | | | | | [phone] | | | +--------+---------+ + + + [...] pressu re. Referral to Dr. Maloney in [place], [place] where a lumboperitoneal shunt was placed and subsequently explanted due to infection and migration of the catheter tip from the peritoneal space. She feels that her symptoms were helped at the time of the placement of the shunt; the head aches and visual problems have worsened since shunt removal. She has opted to come to [facility] rather than to return to [place] based on travel convenience. Review of Systems: [...] brain without; Neuro-ophthalmology consultation. [facility] Not on [...] | + +---------+ + + | [facility] DEPARTMENT OF | | | | | RADIOLOGY | | | | + +---------+ + + documented in this encounter Visit Diagnoses + + | Diagnosis | + + | Pseudotumor cerebri - Primary Benign intracranial hypertension | + + documented in this encounter
--- OUTSIDE RECORDS SUMMARY | ~2020-05-29 | XMS | Encounter Summary ---
Demographics + + + | Address | [address] | | | [place] [address] | + + + | Home Phone [...] + + + | Author | [place] [employer] [facility] | + + + | Organization | [facility] [employer] Science [facility] | + + + | Address | Unknown | + + + | Phone | Unavailable | + + + Support + + +---------+ + | Name | Relationship | Address | Phone | + + +---------+ + | Ruby Au | ECON | Unknown | | + + +---------+ + Care Team Providers + +------+ + | Care Card Assembler Name | Role | Phone | [...] Hospital | | | | | | [place], [place] | | | | | | [address] | | | | | | [phone] | | | +--------+ + + + [...]
--- OUTSIDE RECORDS SUMMARY | ~2020-05-29 | XMS | Encounter Summary ---
Demographics + + + | Address | [address] | | | [place] [address] | + + + | Home Phone [...] + + + | Author | [place] [employer] Science [facility] | + + + | Organization | [facility] [employer] Science [facility] [...] Providers + +------+ + | Care Hand Sign Writer Name | Role | Phone | [...] | | | Ave Mailcode: CH8N | [place], [place] | | | | | [facility] | [address] | | | | | and Healing, | [phone] | | | | | [facility] | | | | | | Floor [place], [place] | | | | | | [address] | | | | | | [phone] | | | +--------+ + + + [...]
--- OUTSIDE RECORDS SUMMARY | ~2020-05-29 | XMS | Encounter Summary ---
Demographics + + + | Address | [address] | | | [place] [address] | + + + | Home Phone [...] + + + | Author | [place] [employer] [facility] | + + + | Organization | Count Includes [facility] Hone and [employer] [facility] | [...] Providers + +------+ + | Care Hair Designer Name | Role | Phone | [...] | Visit | Medicine Clinic at | HOSPITAL LABORATORY TECHNICIAN [address] [facility] | Pre-Operative | | | | [facility] 4th Floor [address] | Examination (Primary | | | | [address] | [place], [place] | Dx); Pseudotumor | | | | Mailcode: CH4S | [address] | Cerebri; Encounter | | | | [facility] | [phone] | for Long-Term | | | | and Healing, | | (Current) Use of | | | | Building 1,4th Floor | | Anticoagulants | | | | [place], [place] | | | | | | [address] | | | | | | [phone] | | | +--------+---------+ + + + [...] [facility]. [facility] [place] [facility],[address] [place] [address] documented in this encou nter Plan of Treatment + + +--------+ + + | Name | Type | Priori | Associated Diagnoses | Order Schedule | | | | ty | | | + + +--------+ + + | [facility] COLLECTION VENOUS | Procedures | Routin | [...] | + + + + + | [facility] DEPARTMENT OF | [address] [facility] | [place] [address] | | | PATHOLOGY | [address] | | | + + + + + | [facility] DEPARTMENT OF | [address] [facility] | [place] [address] | | | PATHOLOGY | [address] [...] + + + + | [facility] | [address] | [place] [address] | | | PATHOLOGY | [address] | | | + + + + + | [facility] | [address] | [place] [address] | | | PATHOLOGY | [address] [...] + + + + | [facility] | [address] [facility] | [place] [address] | | | PATHOLOGY | [address] | | | + + + + + | [facility] | [address] [facility] | [place] [address] | | | PATHOLOGY | [address] [...] + + + + | [facility] | [address] [facility] | [place] [address] | | | PATHOLOGY | [address] | | | + + + + + | [facility] | [address] [place] [address] | [place] [address] | | | PATHOLOGY | [address] [...] Performed At | + + + | [id number] Estimated GFR > 60 mL/min/1.73 sq m if non- | [facility] | | Monegasque [id number] Estimated GFR > 60 mL/min/1.73 sq m if | DEPARTMENT OF | | [place] GFR is estimated using the MDRD equation [...] | + + + + + | [facility] DEPARTMENT OF | [address] | [place] [address] | | | PATHOLOGY | [address] | | | + + + + + | [facility] DEPARTMENT OF | [address] | [place] [address] | | | PATHOLOGY | [address] [...] | + + + + + | [facility] DEPARTMENT OF | [address] | [place] [address] | | | PATHOLOGY | [address] | | | + + + + + | [facility] | [address] | [place] [address] | | | PATHOLOGY | [address] | | | + + + + + documented in this encounter Visit Diagnoses + + | Diagnosis | + + | Other specified pre-operative examination - Primary | + + | Pseudotumor cerebri Benign intracranial hypertension | + + | rodent exterminator (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
--- OUTSIDE RECORDS SUMMARY | ~2020-05-29 | XMS | Encounter Summary ---
Demographics + + + | Address | [address] | | | [place] [address] | + + + | Home Phone [...] + | Organization | [facility] [...] Team Providers + +------+ + | Care Economist Research Assistant Name | Role | Phone | + +------+ + PCP | Unavailable | + +------+ + Encounter Details +--------+ + + + + | Date | Type | Department | Care Team | Description | +--------+ + + + + | 07/12/ | Hospital | [facility] | Conversion | | | 2010 | Encounter | [facility] | Transaction, | | | | | EMERGENCY CENTER | Provider Unknown | | | | | [address] | | | | | | [place] | (Fax) | | | | | [address] | | | | | | [phone] | | | +--------+ + + + [...]
--- OUTSIDE RECORDS SUMMARY | ~2020-05-29 | XMS | Encounter Summary ---
Demographics + + + | Address | [address] | | | [place] [address] | + + + | Home Phone [...] + + + | Author | [place] [employer] [facility] | + + + | Organization | [facility] [employer] [facility] [...] + +------+ + | Care Behavioral Health Professional Name | Role | Phone | [...] | | | Ave Mailcode: CH8N | [place], [place] | Encounters | | | | [facility] | [address] | | | | | and [place], | [phone] | | | | | [facility] | | | | | | Floor [place], [place] | | | | | | [address] | | | | | | [phone] | | | +--------+ + + + [...]
--- OUTSIDE RECORDS SUMMARY | ~2020-05-29 | XMS | Encounter Summary ---
Demographics + + + | Address | [address] | | | [place] [address] | + + + | Home Phone [...] Organization | [facility] [...] Team Providers + +------+ + | Care Cemetery Vault Installer Name | Role | Phone | + +------+ + PCP | Unavailable | + +------+ + Encounter Details +--------+ + + + + | Date | Type | Department | Care Team | Description | +--------+ + + + + | 07/30/ | Hospital | [facility] | | | | 2008 - | Encounter | MED CTR MED ONC | | | | | | [address] | | | | 08/02/ | | [place] [address] | | | | 2008 | | [phone] | | | +--------+ + + + [...]
--- OUTSIDE RECORDS SUMMARY | ~2020-05-29 | XMS | Encounter Summary ---
Demographics + + + | Address | [address] | | | [place] [address] | + + + | Home Phone [...] + + + | Author | [place] [employer] [facility] | + + + | Organization | [facility] [...] Providers + +------+ + | Care Cost Accounting Analyst Name | Role | Phone | [...] Erroneous Encounter | | 2007 | | [facility] | [facility] | - Disregard | | | | and Healing [address] | Neurosurgery [address] | | | | | [address] Mailcode: | [address] | | | | | CH8N Center for | [place], [place] | | | | | Health and Healing, | [address] | | | | | Building 1, | | | | | | Floor [place], [place] | | | | | | [address] | | | | | | [phone] | | | +--------+--------+ + + + [...]
--- OUTSIDE RECORDS SUMMARY | ~2020-05-29 | XMS | Encounter Summary ---
Demographics + + + | Address | [address] | | | [place] [address] | + + + | Home Phone [...] + + + | Author | [place] [employer] World [employer] [facility] | + + + | Organization | [facility] [employer] [facility] | + [...] Providers + +------+ + | Care Deputy Court Name | Role | Phone | [...] + + | 08/24/ | Emergency | [facility] Emergency | Tylor Mcclellan, | | | 2010 | | Department [address] | [address] | | | | | [address] | MD [address] | | | | | [facility] | [facility] | | | | | [place], [place] | [place], [place] | | | | | [address] | [address] | | | | | [phone] | [phone] | | | | | | | [...] us take care of you at [facility] today. Follow up with primary care physician [...] | | + +---------+ + + | [facility] DEPARTMENT OF | | [...]
--- OUTSIDE RECORDS SUMMARY | ~2020-05-29 | XMS | Encounter Summary ---
Demographics + + + | Address | [address] | | | [place] [address] | + + + | Home Phone [...] + + + | Author | [place] [employer] [facility] | + + + | Organization | [facility] [employer] [facility] | + + [...] Providers + +------+ + | Care Supervisor [place] Name | Role | Phone | + [...] Erroneous Encounter | | 2007 | | [place] [facility] | [place] [facility] | - Disregard | | | | and Healing [address] | Neurosurgery [address] | | | | | [address] Mailcode: | [address] | | | | | CH8N Center for | [place], [place] | | | | | Health and Healing, | [address] | | | | | Building 1, 8th | | | | | | Floor [place], [place] | | | | | | [address] | | | | | | [phone] | | | +--------+ + + + [...]
--- OUTSIDE RECORDS SUMMARY | ~2020-05-29 | XMS | Encounter Summary ---
Demographics + + + | Address | [address] | | | [place] [address] | + + + | Home Phone [...] + + + | Author | [place] The Mark News Science [facility] | + + + | Organization | [facility] Hearsay.it Science [facility] | + [...] Providers + +------+ + | Care Line Erector Name | Role | Phone | [...] Erroneous Encounter | | 2007 | | [place] for [facility] | [place] [facility] | - Disregard | | | | and Healing [address] | Neurosurgery [address] | | | | | [address] Mailcode: | [address] | | | | | CH8N Center for | [place], [place] | | | | | Health and Healing, | [address] | | | | | Building 1, [address]th | | | | | | Floor [place], [place] | | | | | | [address] | | | | | | [phone] | | | +--------+ + + + [...]
--- OUTSIDE RECORDS SUMMARY | ~2020-05-29 | XMS | Encounter Summary ---
Demographics + + + | Address | [address] | | | [place] [address] | + + + | Home Phone [...] + + + | Author | [place] [employer] Science [facility] | + + + | Organization | [facility] Firefly Mobile Science [facility] [...] Team Providers + +------+ + | Care Ornithology Teacher Name | Role | Phone | [...] | | | Ave Mailcode: CH8N | [place], [place] | | | | | [facility] | [address] | | | | | and Healing, | [phone] | | | | | [facility] | | | | | | Floor [place], [place] | | | | | | [address] | | | | | | [phone] | | | +--------+ + + + [...]
--- OUTSIDE RECORDS SUMMARY | ~2020-05-29 | XMS | Encounter Summary ---
Demographics + + + | Address | [address] | | | [place] [address] | + + + | Home Phone [...] | Organization | [facility] [...] Providers + +------+ + | Care Air Bag Builder Name | Role | Phone | + +------+ + PCP | Unavailable | + +------+ + Encounter Details +--------+ + + + + | Date | Type | Department | Care Team | Description | +--------+ + + + + | 04/21/ | Hospital | [facility] | | | | 1995 | Encounter | MED CTR EMERGENCY | | | | | | CENTER [address] | | | | | | [place] | | | | | | [address] | | | | | | [phone] | | | +--------+ + + + [...]
--- OUTSIDE RECORDS SUMMARY | ~2020-05-29 | XMS | Encounter Summary ---
Demographics + + + | Address | [address] | | | [place] [address] | + + + | Home Phone [...] | [facility] [...] Team Providers + +------+ + | Care Braille Operator Name | Role | Phone | + +------+ + PCP | Unavailable | + +------+ + Encounter Details +--------+ + + + + | Date | Type | Department | Care Team | Description | +--------+ + + + + | 07/19/ | Hospital | [facility] | Vern Rooney, | | | 1990 - | Encounter | MED CTR MED ONC | [address] | | | | | [address] | [place] | | | 07/21/ | | [place] [address] | [address] | | | 1990 | | [phone] | | | +--------+ + + + [...]
--- OUTSIDE RECORDS SUMMARY | ~2020-05-29 | XMS | Encounter Summary ---
Demographics + + + | Address | [address] | | | [place] [address] | + + + | Home Phone [...] + + + | Author | [place] [employer] [facility] | + + + | Organization | [facility] AnyPresence [facility] | + + + | Address | Unknown | + + + | Phone | Unavailable | + + + Support + + +---------+ + | Name | Relationship | Address | Phone | + + +---------+ + | Ruby Au | ECON | Unknown | | + + +---------+ + Care Team Providers + +------+ + | Care Composition Roll Maker And Cutter Name | Role | Phone | [...] | | | Ave Mailcode: CH8N | [place], [place] | | | | | [facility] | [address] | | | | | and Healing, | [phone] | | | | | [facility] | | | | | | Floor [facility] [place] | | | | | | [address] | | | | | | [phone] | | | +--------+ + + + [...]
--- OUTSIDE RECORDS SUMMARY | ~2020-05-29 | XMS | Encounter Summary ---
Demographics + + + | Address | [address] | | | [place] [address] | + + + | Home Phone [...] Organization | [facility] [...] Team Providers + +------+ + | Care Signalman Name | Role | Phone | + +------+ + PCP | Unavailable | + +------+ + Encounter Details +--------+ + + + + | Date | Type | Department | Care Team | Description | +--------+ + + + + | 04/24/ | Hospital | [facility] | | | | 1991 | Encounter | MED CTR EMERGENCY | | | | | | CENTER [address] | | | | | | [place] | | | | | | [address] | | | | | | [phone] | | | +--------+ + + + [...]
--- OUTSIDE RECORDS SUMMARY | ~2020-05-29 | XMS | Encounter Summary ---
Demographics + + + | Address | [address] | | | [place] [address] | + + + | Home Phone [...] + + + | Author | [place] demandmart Science [facility] | + + + | Organization | [facility] Varaa[employer] [facility] | + + [...] Providers + +------+ + | Care Human Service Coordinator Name | Role | Phone [...] Request (Pt | | 2006 | | [place] | Cassi Hammer | requests more pain | | | | Oculoplastics at | [place], [place] | medication) | | | | [address] | [address] | | | | | [address] | [phone] | | | | | [facility] [place] | | | | | | [facility] floor | | | | | | [place] [address] | | | | | | [phone] | | | +--------+--------+ + + + [...]
--- OUTSIDE RECORDS SUMMARY | ~2020-05-29 | XMS | Encounter Summary ---
Demographics + + + | Address | [address] | | | [place] [address] | + + + | Home Phone [...] + + + | Author | [place] Alexis Bitt[employer] [facility] | + + + | Organization | [facility] | + + [...] + +------+ + | Care Diesel Engine Inspector Name | Role | Phone | [...] [address] | | | | | | [address] | [address] | | | | | | [address] | [place], [place] | | | | | | [place], | [address] | | | | | | [place] [address] | Phone: | | | | | | Phone: | [phone] | | | | | | [phone] | Fax: | | | | | | Fax: | [phone] | | | | | | [phone] | | +--------+ + + + + [...] | | Ave Mailcode: CH8N | [place], [place] | | | | | [facility] | [address] | | | | | and Healing, | [phone] | | | | | [facility] | | | | | | Floor [place], [place] | | | | | | [address] | | | | | | [phone] | | | +--------+---------+ + + + [...] soon. I spent more than 15 minutes vyid-da-pcdp with the patient of which greater than 50% was sp ent counseling the patient regarding the shunt removal, indications and venous sinus stent a ngioplasty. Since her shunt is brent effective now she will need narcotics for headache and he r PCP should manage that. CASIMIRO PAYTON MD NEUROSURGERY [address] Mailcode: Ch8n [facility], 8th [facility] [address] documented in this encou nter Plan of Treatment Not on filedocumented as of this encounter Visit Diagnoses + + | Diagnosis | + + | Pseudotumor cerebri - Primary Benign intracranial hypertension | + + documented in this encounter
--- OUTSIDE RECORDS SUMMARY | ~2020-05-29 | XMS | Encounter Summary ---
Demographics + + + | Address | [address] | | | [place] [address] | + + + | Home Phone [...] | [facility] | | | [...] Team Providers + +------+ + | Care Call Or Contact Centre Manager Name | Role | Phone | + +------+ + PCP | Unavailable | + +------+ + Encounter Details +--------+ + + + + | Date | Type | Department | Care Team | Description | +--------+ + + + + | 10/12/ | Hospital | [facility] | | | | 1991 | Encounter | [facility] | | | | | | HEALTH [address] | | | | | | [place], | | | | | | [place] [address] | | | | | | [phone] | | | +--------+ + + + [...]
--- OUTSIDE RECORDS SUMMARY | ~2020-05-29 | XMS | Encounter Summary ---
Demographics + + + | Address | [address] | | | [place] [address] | + + + | Home Phone [...] + + + | Author | [place] [employer]Guard [facility] | + + + | Organization | [facility] [employer]Hub [facility] | + [...] Team Providers + +------+ + | Care Seal Skinner Name | Role | Phone | + +------+ + | Brenden Benavides MD | PCP | | + +------+ + Encounter Details +--------+ + + + + | Date | Type | Department | Care Team | Description | +--------+ + + + + | 02/21/ | Telephone | [facility] | [address] | | | 2006 | | [place] | [address] | | | | | Oculoplastics at | [facility] [place] | | | | | Ma[address] | [address] | | | | | [address] | | | | | | [facility] [place] | | | | | | [facility], 5th floor | | | | | | [place] [address] | | | | | | [phone] | | | +--------+ + + + [...]
--- OUTSIDE RECORDS SUMMARY | ~2020-05-29 | XMS | Encounter Summary ---
Demographics + + + | Address | [address] | | | [place] [address] | + + + | Home Phone [...] + | Organization | [facility] [...] Team Providers + +------+ + | Care Roof Designer Name | Role | Phone | + +------+ + PCP | Unavailable | + +------+ + Encounter Details +--------+ + + + + | Date | Type | Department | Care Team | Description | +--------+ + + + + | 10/22/ | Hospital | [facility] | | | | 1991 - | Encounter | [facility] | | | | | | HEALTH [facility] [address] | | | | 10/24/ | | [place], | | | | 1991 | | [place] [address] | | | | | | [phone] | | | +--------+ + + + [...]
--- OUTSIDE RECORDS SUMMARY | ~2020-05-29 | XMS | Encounter Summary ---
Demographics + + + | Address | [address] | | | [place] [address] | + + + | Home Phone [...] + + + | Author | [place] [employer] [facility] | + + + | Organization | [facility] Visual Mining [facility] | [...] Providers + +------+ + | Care Software Test Engineer Name | Role | Phone | + +------+ + | Brenden eBnavides MD | PCP | | + +------+ [...] | | | REFERRAL TO | | [place], [place] | | | | | NEUROINTERVE | | [address] | | | | | NTIONAL | | Phone: | | | | | RADIOLOGY | | [phone] | | | | | PRACTICE | | Fax: | | | | | | | [phone] | +--------+--------+ + + + + Reason [...] Dx) | | | | Mailcode:OP14B | [place], [place] | | | | | Outpatient Clinic | [address] | | | | | Building [place], | [phone] | | | | | [place] [address] | | | | | | [phone] | | | +--------+---------+ + + + [...] resident s note. CASIMIRO PAYTON MD NEUROSURGERY [facility] S [facility] [place] [place] [address] Pascual Ballard - 12:00 PM [...] spots" and "tunnel vision." Last saw an motor vehicle field representative in [facility] 2 months ago. Reportedl y, this [...] Patient was also given a prescription for Lovilia for CAPONE until she establishs care with [...]
--- OUTSIDE RECORDS SUMMARY | ~2020-05-29 | XMS | Encounter Summary ---
Demographics + + + | Address | [address] | | | [place] [address] | + + + | Home Phone [...] + + + | Author | [place] kinkon Science [facility] | + + + | Organization | [facility] [employer] [facility] | [...] MD | | | 2010 | | [place]/Ophthalmol | [address] | | | | | leon at [facility] [address] | [place], [place] | | | | | [address] Mailcode: | [address] | | | | | CH11P [facility] | [phone] | | | | | Health and Healing, | | | | | | [facility] | | | | | | [place], [place] | | | | | | [address] | | | | | | [phone] | | | +--------+ + + + [...]
--- OUTSIDE RECORDS SUMMARY | ~2020-05-29 | XMS | Encounter Summary ---
Demographics + + + | Address | [address] | | | [place] [address] | + + + | Home Phone [...] + + + | Author | [place] [employer] [facility] | + + + | Organization | [facility] [employer] [facility] | + [...] Providers + +------+ + | Care Land Agent Name | Role | Phone | + +------+ + | Brenden Benavides MD | PCP | | + +------+ + Encounter Details +--------+ + + + + | Date | Type | Department | Care Team | Description | +--------+ + + + + | 02/23/ | Telephone | [facility] | Brad Currie MD | | | 2006 | | [place] | | | | | | Neuro-Ophthalmology | | | | | | [address] [facility] | | | | | | Mailcode: PATTI | | | | | | [place] [address] | | | | | | [phone] | | | +--------+ + + + [...]
--- OUTSIDE RECORDS SUMMARY | ~2020-05-29 | XMS | Encounter Summary ---
Demographics + + + | Address | [address] | | | [place] [address] | + + + | Home Phone [...] + + + | Author | [place] [employer] [facility] | + + + | Organization | [facility] [employer] [facility] | + [...] + +------+ + | Care Manager Of Network Name | Role | Phone | + [...] | | | Ave Mailcode: CH8N | [place], [place] | | | | | [facility] | [address] | | | | | and Healing, | [phone] | | | | | | | | | | | Floor [place], [place] | | | | | | [address] | | | | | | [phone] | | | +--------+ + + + [...]
--- OUTSIDE RECORDS SUMMARY | ~2020-05-29 | XMS | Encounter Summary ---
Demographics + + + | Address | [address] | | | [place] [address] | + + + | Home Phone [...] + + + | Author | [place] Cellectar [facility] | + + + | Organization | [facility] [employer] Science [facility] [...] Providers + +------+ + | Care Control Officer Name | Role | Phone | [...] | | | Ave Mailcode: CH8N | [place], [place] | | | | | [facility] | [address] | | | | | and Healing, | [phone] | | | | | [facility] | | | | | | Floor [facility] [place] | | | | | | [address] | | | | | | [phone] | | | +--------+---------+ + + + [...]
--- OUTSIDE RECORDS SUMMARY | ~2020-05-29 | XMS | Encounter Summary ---
Demographics + + + | Address | [address] | | | [place] [address] | + + + | Home Phone [...] Providers + +------+ + | Care Ui Application Developer Name | Role | Phone | + +------+ + PCP | Unavailable | + +------+ + Encounter Details +--------+ + + + + | Date | Type | Department | Care Team | Description | +--------+ + + + + | 09/30/ | Hospital | [facility] | | | | 1991 | Encounter | [facility] | | | | | | HEALTH [address] | | | | | | [place], | | | | | | [place] [address] | | | | | | [phone] | | | +--------+ + + + [...]
--- OUTSIDE RECORDS SUMMARY | ~2020-05-29 | XMS | Encounter Summary ---
Demographics + + + | Address | [address] | | | [place] [address] | + + + | Home Phone [...] + | Author | [place] Metabacus Science [facility] | + + + | Organization | [facility] makr Science [facility] [...] Providers + +------+ + | Care Clinical Research Nurse Name | Role | Phone | [...] Cerebri | | 2006 | Visit | [employer] | | (Primary Dx) | | | | Neuro-Ophthalmology | | | | | | [address] [facility] | | | | | | Mailcode: CE | | | | | | [place] [address] | | | | | | [phone] | | | +--------+---------+ + + + [...] Referred by: CASIMIRO PAYTON MD [address] [place] [address] Symptoms: She has not been taking her [...] Brad Currie MD Neuro-Ophthalmology and Cerebrovascular Disease Journeyman Carpenter of Ophthalmology, Neurology, and Neurosurgery documented in [...]
--- OUTSIDE RECORDS SUMMARY | ~2020-05-29 | XMS | Encounter Summary ---
Demographics + + + | Address | [address] | | | [place] [address] | + + + | Home Phone [...] Organization | [facility], [...] Team Providers + +------+ + | Care Cooker Casing Name | Role | Phone | + +------+ + PCP | Unavailable | + +------+ + Encounter Details +--------+ + + + + | Date | Type | Department | Care Team | Description | +--------+ + + + + | 07/07/ | Hospital | [facility] | | | | 1991 | Encounter | MED CTR EMERGENCY | | | | | | CENTER [address] | | | | | | [place] | | | | | | [address] | | | | | | [phone] | | | +--------+ + + + [...]
--- OUTSIDE RECORDS SUMMARY | ~2020-05-29 | XMS | Encounter Summary ---
Demographics + + + | Address | [address] | | | [place] [address] | + + + | Home Phone [...] + + | Author | [place] [employer]ged[employer] [facility] | + + + | Organization | [facility] [employer] [facility] | + + + | Address | Unknown | + + + | Phone | Unavailable | + + + Support + + +---------+ + | Name | Relationship | Address | Phone | + + +---------+ + | Ruby Au | ECON | Unknown | | + + +---------+ + Care Team Providers + +------+ + | Care Leasing Property Manager Name | Role | Phone | [...] Care Coordination | | 2018 | | [place] | MD [address] | | | | | Neuro-Ophthalmology | [facility] [place] | | | | | at [facility] [address] | [address] | | | | | Ave Mailcode: CH3G | [phone] | | | | | [facility] | | | | | | and Healing, | | | | | | Building | | | | | | Floor [place], [place] | | | | | | [address] | | | | | | [phone] | | | +--------+ + + + [...]
--- OUTSIDE RECORDS SUMMARY | ~2020-05-29 | XMS | Encounter Summary ---
Demographics + + + | Address | [address] | | | [place] [address] | + + + | Home Phone [...] + + | Author | [place] Brideside [facility] | + + + | Organization | [facility] Lendin[employer] Science [facility] | [...] Providers + +------+ + | Care Corporate Compliance Officer Name | Role | Phone | [...] | | | Ave Mailcode: CH8N | [place], [place] | | | | | [facility] | [address] | | | | | and Healing, | [phone] | | | | | [facility] | | | | | | Floor [place], [place] | | | | | | [address] | | | | | | [phone] | | | +--------+ + + + [...]
--- OUTSIDE RECORDS SUMMARY | ~2020-05-29 | XMS | Encounter Summary ---
Demographics + + + | Address | [address] | | | [place] [address] | + + + | Home Phone [...] + + + | Author | [place] [employer] [facility] | + + + | Organization | [facility] [employer] [facility] | + [...] Providers + +------+ + | Care Chief Procurement Officer Name | Role | Phone | [...] | | | [place] Mailcode: [id number] | [place], [place] | | | | | [place], [place] | [address] | | | | | [address] | [phone] | | | | | [phone] | | | +--------+ + + + [...]
--- OUTSIDE RECORDS SUMMARY | ~2020-05-29 | XMS | Encounter Summary ---
Demographics + + + | Address | [address] | | | [place] [address] | + + + | Home Phone [...] + | Organization | [facility] [...] Team Providers + +------+ + | Care Exceptional Student Education Teacher Name | Role | Phone | + +------+ + PCP | Unavailable | + +------+ + Encounter Details +--------+ + + + + | Date | Type | Department | Care Team | Description | +--------+ + + + + | 10/20/ | Hospital | [facility] | | | | 1999 | Encounter | MED CTR EMERGENCY | | | | | | CENTER [address] | | | | | | [place] | | | | | | [address] | | | | | | [phone] | | | +--------+ + + + [...]
--- OUTSIDE RECORDS SUMMARY | ~2020-05-29 | XMS | Encounter Summary ---
Demographics + + + | Address | [address] | | | [place] [address] | + + + | Home Phone [...] + + + | Author | [place] N4MD [facility] | + + + | Organization | [facility] Share Some Style [facility] | + [...] Providers + +------+ + | Care Product Consultant Name | Role | Phone | [...] Kirk | | | | | CH[facility] | [place], [place] | | | | | Health and Healing, | [address] | | | | | Building 1, 8th | | | | | | Floor [place], [place] | | | | | | [address] | | | | | | [phone] | | | +--------+ + + + [...]
--- OUTSIDE RECORDS SUMMARY | ~2020-05-29 | XMS | Encounter Summary ---
Demographics + + + | Address | [address] | | | [place] [address] | + + + | Home Phone [...] + | Author | [place] [employer] [facility] | + + + | Organization | [facility] [employer] [facility] | + [...] Team Providers + +------+ + | Care Dispensary Clerk Name | Role | Phone | + +------+ + | Yeison Simms MD | PCP | Unavailable | + +------+ + Reason for Visit + + + | Reason | Comments | + + + | Refill Request | refill on [place] | + + + Encounter Details +--------+--------+ + + + | Date | Type | Department | Care Team | Description | +--------+--------+ + + + | 08/27/ | Refill | Neurosurgery at | Sam Pedroza MD | Refill Request | | 2007 | | [facility] [address] | [address] | (refill on [place]) | | | | Ave Mailcode: CH8N | [place], [place] | | | | | [facility] | [address] | | | | | and Healing, | [phone] | | | | | [facility] | | | | | | Floor [place], [place] | | | | | | [address] | | | | | | [phone] | | | +--------+--------+ + + + [...]
--- OUTSIDE RECORDS SUMMARY | ~2020-05-29 | XMS | Encounter Summary ---
Demographics + + + | Address | [address] | | | [place] [address] | + + + | Home Phone [...] + + + | Author | [place] Leatt Science [facility] | + + + | Organization | [facility] GameLogic [facility] [...] Team Providers + +------+ + | Care Criminal Investigator Customs Name | Role | Phone | + [...] [facility] [address] | [address] | | | | | [place] Mailcode: CH8N | [address] [facility] | | | | | [facility] | Rd [place], [place] | | | | | and Healing, | [address] | | | | | Building | [phone] | | | | | Floor [place], [place] | | | | | | [address] | | | | | | [phone] | | | +--------+ + + + [...]
--- OUTSIDE RECORDS SUMMARY | ~2020-05-29 | XMS | Encounter Summary ---
Demographics + + + | Address | [address] | | | [place] [address] | + + + | Home Phone [...] Organization | [facility] [...] Providers + +------+ + | Care Car Dryer Name | Role | Phone | + +------+ + PCP | Unavailable | + +------+ + Encounter Details +--------+ + + + + | Date | Type | Department | Care Team | Description | +--------+ + + + + | 10/25/ | Hospital | [facility] | | | | 1991 | Encounter | MED CTR EMERGENCY | | | | | | CENTER [address] | | | | | | [place] | | | | | | [address] | | | | | | [phone] | | | +--------+ + + + [...]
--- OUTSIDE RECORDS SUMMARY | ~2020-05-29 | XMS | Encounter Summary ---
Demographics + + + | Address | [address] | | | [place] [address] | + + + | Home Phone [...] + + | Author | [place] First Active Media [facility] | + + + | Organization | [facility] varinode [facility] | + [...] Providers + +------+ + | Care Shoe Salesman Name | Role | Phone | + [...] [facility] [address] | [address] | | | | | [place] Mailcode: CH8N | [address] [facility] | | | | | [facility] | Rd [place], [place] | | | | | and Healing, | [address] | | | | | Building | [phone] | | | | | Floor [place], [place] | | | | | | [address] | | | | | | [phone] | | | +--------+ + + + [...]
--- OUTSIDE RECORDS SUMMARY | ~2020-05-29 | XMS | Encounter Summary ---
Demographics + + + | Address | [address] | | | [place] [address] | + + + | Home Phone [...] + + | Author | [place] Ultora [facility] | + + + | Organization | [facility] TriggerMail Science [facility] | + [...] Providers + +------+ + | Care Regulatory Submissions Associate Name | Role | Phone | [...] Refill Request | | 2006 | | [address] | [address] | | | | | Oculoplastics at | Rd [place], [place] | | | | | [facility] [address] | [address] | | | | | [address] | | | | | | Eye [place] | | | | | | [facility], [address] [place] [address] | | | | | | [place] [address] | | | | | | [phone] | | | +--------+ + + + [...]
--- OUTSIDE RECORDS SUMMARY | ~2020-05-29 | XMS | Encounter Summary ---
Demographics + + + | Address | [address] | | | [place] [address] | + + + | Home Phone [...] | Organization | [facility] | [...] Team Providers + +------+ + | Care Irrigation Equipment Installer Name | Role | Phone | + +------+ + PCP | Unavailable | + +------+ + Encounter Details +--------+ + + + + | Date | Type | Department | Care Team | Description | +--------+ + + + + | 10/27/ | Hospital | [facility] | | | | 1990 | Encounter | MED CTR EMERGENCY | | | | | | CENTER [address] | | | | | | [place] | | | | | | [address] | | | | | | [phone] | | | +--------+ + + + [...]
--- OUTSIDE RECORDS SUMMARY | ~2020-05-29 | XMS | Encounter Summary ---
Demographics + + + | Address | [address] | | | [place] [address] | + + + | Home Phone [...] + + + | Author | [place] Six3 [facility] | + + + | Organization | [facility] CardFlight [facility] | + + + | Address | Unknown | + + + | Phone | Unavailable | + + + Support + + +---------+ + | Name | Relationship | Address | Phone | + + +---------+ + | Ruby Au | ECON | Unknown | | + + +---------+ + Care Team Providers + +------+ + | Care Casing Crew Name | Role | Phone | [...] | | | Ave Mailcode: CH8N | [place], [place] | | | | | [facility] | [address] | | | | | and [facility], | [phone] | | | | | [facility] | | | | | | Floor [place], [place] | | | | | | [address] | | | | | | [phone] | | | +--------+ + + + [...]
--- OUTSIDE RECORDS SUMMARY | ~2020-05-29 | XMS | Encounter Summary ---
Demographics + + + | Address | [address] | | | [place] [address] | + + + | Home Phone [...] + + + | Author | [place] YoQueVos Science [facility] | + + + | Organization | [facility] Inspired Arts [employer] Media [facility] | + [...] Providers + +------+ + | Care Box Car Washer Name | Role | Phone | [...] | [facility] | [place], [place] | | | | | [place], [place] | [address] | | | | | [address] | [phone] | | | | | [phone] | | | +--------+ + + + [...]
--- OUTSIDE RECORDS SUMMARY | ~2020-05-29 | XMS | Encounter Summary ---
Demographics + + + | Address | [address] | | | [place] [address] | + + + | Home Phone [...] + + + | Author | [place] Resilience [facility] | + + + | Organization | [facility] [employer] The[employer] [facility] | [...] Providers + +------+ + | Care Family Support Specialist Name | Role | Phone [...] | | | Ave Mailcode: CH8N | [place], [place] | | | | | [facility] | [address] | | | | | and Healing, | [phone] | | | | | [facility] | | | | | | Floor [place], [place] | | | | | | [address] | | | | | | [phone] | | | +--------+ + + + [...]
--- OUTSIDE RECORDS SUMMARY | ~2020-05-29 | XMS | Encounter Summary ---
Demographics + + + | Address | [address] | | | [place] [address] | + + + | Home Phone [...] + + + | Author | [place] Buzz Referrals [facility] | + + + | Organization | [facility] [employer] [facility] | + [...] Providers + +------+ + | Care Bindery Operator Name | Role | Phone | [...] Campus | | | | | | [place], [place] | | | | | | [address] | | | | | | [phone] | | | +--------+ + + + [...]
--- OUTSIDE RECORDS SUMMARY | ~2020-05-29 | XMS | Encounter Summary ---
Demographics + + + | Address | [address] | | | [place] [address] | + + + | Home Phone [...] + + + | Author | [place] Reduce Data Science [facility] | + + + | Organization | [facility] [employer] Science 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,[address] [place] [address] documented in this encou nter Plan of Treatment + + +--------+ + + | Name | Type | Priori | Associated Diagnoses | Order Schedule | | | | ty | | | + + +--------+ + + | FL COLLECTION VENOUS | Procedures | Routin | [...] [facility] DEPARTMENT OF | [address] [facility] | [place] [address] | | | PATHOLOGY | [address] | | | + + + + + | [facility] DEPARTMENT OF | [address] [facility] | [place] [address] | | | PATHOLOGY | [address] [...] | + + + + + | [facility] | [address] | [place] [address] | | | PATHOLOGY | [address] | | | + + + + + | [facility] | [address] | [place] [address] | | | PATHOLOGY | [address] [...] | + + + + + | [facility] | [address] [facility] | [place] [address] | | | PATHOLOGY | [address] | | | + + + + + | [facility] | [address] [facility] | [place] [address] | | | PATHOLOGY | [address] [...] | + + + + + | [facility] | [address] [facility] | [place] [address] | | | PATHOLOGY | [address] | | | + + + + + | [facility] | [address] [place] [address] | [place] [address] | | | PATHOLOGY | [address] [...] Performed At | + + + | [id number] Estimated GFR > 60 mL/min/1.73 sq m if non- | [facility] | | [place] [address] Estimated GFR > 60 mL/min/1.73 sq m if | DEPARTMENT OF | | [place] GFR is estimated using the MDRD equation [...] [facility] DEPARTMENT OF | [address] | [place] [address] | | | PATHOLOGY | [address] | | | + + + + + | [facility] DEPARTMENT OF | [address] | [place] [address] | | | PATHOLOGY | [address] [...] [facility] DEPARTMENT OF | [address] | [place] [address] | | | PATHOLOGY | [address] | | | + + + + + | [facility] | [address] | [place] [address] | | | PATHOLOGY | [address] [...]
--- OUTSIDE RECORDS SUMMARY | ~2020-05-29 | XMS | Encounter Summary ---
Demographics + + + | Address | [address] | | | [place] [address] | + + + | Home Phone [...] + + | Author | [place] [employer] [facility] | + + + | Organization | [facility] | [...] Telephone follow-up | | 2015 | | [place] | [address] | | | | | Neuro-Ophthalmology | [place], [place] | | | | | at [facility] [address] | [address] | | | | | Ave Mailcode: [facility] | [phone] | | | | | [facility] | | | | | | and [place], | | | | | | | | | | | | Floor [place], [place] | | | | | | [address] | | | | | | [phone] | | | +--------+ + + + [...]
--- OUTSIDE RECORDS SUMMARY | ~2020-05-29 | XMS | Encounter Summary ---
Demographics + + + | Address | [address] | | | [place] [address] | + + + | Home Phone [...] + + | Author | [place] [employer] [facility] | + + + | Organization | [facility] [employer] [facility] [...] Team Providers + +------+ + | Care Accident Report Clerk Name | Role | Phone [...] | | | Ave Mailcode: CH8N | [place], [place] | | | | | [facility] | [address] | | | | | and Healing, | [phone] | | | | | [facility] | | | | | | Floor [place], [place] | | | | | | [address] | | | | | | [phone] | | | +--------+--------+ + + + [...]
--- OUTSIDE RECORDS SUMMARY | ~2020-05-29 | XMS | Encounter Summary ---
Demographics + + + | Address | [address] | | | [place] [address] | + + + | Home Phone [...] + + + | Author | [place] [employer] [facility] | + + + | Organization | [facility] [employer] [facility] | + [...] Team Providers + +------+ + | Care Science Education Professor Name | Role | Phone [...] [address] | | | | | | [place], [place] | | | | | | [address] | | | +--------+ + + + [...]
--- OUTSIDE RECORDS SUMMARY | ~2020-05-29 | XMS | Encounter Summary ---
Demographics + + + | Address | [address] | | | [place] [address] | + + + | Home Phone [...] + + + | Author | [place] [employer] [facility] | + + + | Organization | [facility] [employer] [facility] | + + [...] Providers + +------+ + | Care Oracle Erp Architect Name | Role | Phone | + +------+ + | Brenden Benavides MD | PCP | | + +------+ + Encounter Details +--------+ + + + + | Date | Type | Department | Care Team | Description | +--------+ + + + + | 02/23/ | Telephone | [facility] | Brad Currie MD | | | 2006 | | [place] | | | | | | Neuro-Ophthalmology | | | | | | [address] | | | | | | Mailcode: PATTI | | | | | | [place] [address] | | | | | | [phone] | | | +--------+ + + + [...]
--- OUTSIDE RECORDS SUMMARY | ~2020-05-29 | XMS | Encounter Summary ---
Demographics + + + | Address | [address] | | | [place] [address] | + + + | Home Phone [...] + + | Author | [place] [employer] [facility] | + + + | Organization | [facility] | + [...] Team Providers + +------+ + | Care Cashier Credit Name | Role | Phone | + +------+ + | Dennis Maddox | PCP | | + +------+ + Encounter Details +--------+ + + + + | Date | Type | Department | Care Team | Description | +--------+ + + + + | 03/15/ | Telephone | [facility] | Ronaldo Martin MD | | | 2012 | | [place]/Ophthalmol | [facility] [place] | | | | | leon at [facility] [address] | [address] [place] [address] | | | | | Gianluca Kirk Mailcode: | [place] [address] | | | | | CH[address] [facility] | [phone] | | | | | Health and Healing, | | | | | | | | | | | | [place], [place] | | | | | | [address] | | | | | | [phone] | | | +--------+ + + + [...]
--- OUTSIDE RECORDS SUMMARY | ~2020-05-29 | XMS | Encounter Summary ---
Demographics + + + | Address | [address] | | | [place] [address] | + + + | Home Phone [...] + + + | Author | [place] [employer] [facility] | + + + | Organization | [facility] [employer] [facility] | + [...] Team Providers + +------+ + | Care Varnish Thinner Name | Role | Phone | [...] | | Ave Mailcode: CH8N | [place], [place] | | | | | [facility] | [address] | | | | | and [place], | [phone] | | | | | [facility] | | | | | | Floor [place], [place] | | | | | | [address] | | | | | | [phone] | | | +--------+ + + + [...]
--- OUTSIDE RECORDS SUMMARY | ~2020-05-29 | XMS | Encounter Summary ---
Demographics + + + | Address | [address] | | | [place] [address] | + + + | Home Phone [...] + + + | Author | [place] [employer] [facility] | + + + | Organization | [facility] [employer] [facility] [...] Team Providers + +------+ + | Care Protohistorian Name | Role | Phone | + [...] | | | Ave Mailcode: CH8N | [place], [place] | | | | | [facility] | [address] | | | | | and [place], | [phone] | | | | | [facility] | | | | | | Floor [place], [place] | | | | | | [address] | | | | | | [phone] | | | +--------+ + + + [...]
--- OUTSIDE RECORDS SUMMARY | ~2020-05-29 | XMS | Encounter Summary ---
Demographics + + + | Address | [address] | | | [place] [address] | + + + | Home Phone [...] + + | Author | [place] [employer] [facility] | + + + | Organization | [facility] [facility] | + [...] Team Providers + +------+ + | Care Kiln Packer Name | Role | Phone | [...] | Prescription | | 2012 | | [place]/Ophthalmol | MD [place] | | | | | leon at [facility] [address] | | | | | | Gianluca Kirk Mailcode: | | | | | | CH11P [facility] | | | | | | Health and [facility], | | | | | | Building | | | | | | [place], [place] | | | | | | [address] | | | | | | [phone] | | | +--------+ + + + [...]
--- OUTSIDE RECORDS SUMMARY | ~2020-05-29 | XMS | Encounter Summary ---
Demographics + + + | Address | [address] | | | [place] [address] | + + + | Home Phone [...] + + + | Author | [place] [employer] Science [facility] | + + + | Organization | [facility] [employer]X Science [facility] | [...] Team Providers + +------+ + | Care Ready Mix Truck Driver Name | Role | Phone [...] [place], [place] | | | | | [facility] | [address] | | | | | and Healing, | [phone] | | | | | [facility] | | | | | | Floor [facility] [place] | | | | | | [address] | | | | | | [phone] | | | +--------+---------+ + + + [...]
--- OUTSIDE RECORDS SUMMARY | ~2020-05-29 | XMS | Encounter Summary ---
Demographics + + + | Address | [address] | | | [place] [address] | + + + | Home Phone [...] + + + | Author | [place] [employer] [facility] | + + + | Organization | [facility] [employer] [facility] | + [...] Providers + +------+ + | Care Cell Tuber Hand Name | Role | Phone | + +------+ + | Brenden Benavides MD | PCP | | + +------+ + Encounter Details +--------+ + + + + | Date | Type | Department | Care Team | Description | +--------+ + + + + | 02/22/ | Telephone | [facility] | Hay Hughes MD [address] | | | 2006 | | [place] | [address] | | | | | Oculoplastics at | [place], [place] | | | | | [address] | [address] | | | | | [address] | [phone] | | | | | Eye [place] | | | | | | [address] | | | | | | [place] [address] | | | | | | [phone] | | | +--------+ + + + [...]
--- OUTSIDE RECORDS SUMMARY | ~2020-05-29 | XMS | Encounter Summary ---
Demographics + + + | Address | [address] | | | [place] [address] | + + + | Home Phone [...] | Organization | [facility] | [...] Providers + +------+ + | Care Sql Manager Name | Role | Phone | + +------+ + PCP | Unavailable | + +------+ + Encounter Details +--------+ + + + + | Date | Type | Department | Care Team | Description | +--------+ + + + + | 09/30/ | Hospital | [facility] | | | | 1991 | Encounter | MED CTR WOMENS | | | | | | HEALTH [address] | | | | | | [place], | | | | | | [place] [address] | | | | | | [phone] | | | +--------+ + + + [...]
--- OUTSIDE RECORDS SUMMARY | ~2020-05-29 | XMS | Encounter Summary ---
Demographics + + + | Address | [address] | | | [place] [address] | + + + | Home Phone [...] + + + | Author | [place] Yi Fang [employer] [facility] | + + + | Organization | [facility] [employer] [facility] | [...] Providers + +------+ + | Care Pattern Duplicator Name | Role | Phone | + +------+ + | Dennis Maddox | PCP | | + +------+ + Encounter Details +--------+ + + + + | Date | Type | Department | Care Team | Description | +--------+ + + + + | 02/28/ | Emergency | [facility] Emergency | | | | 2013 - | | Department [address] | | | | | [address] | | | | 03/01/ | | [facility] | | | | 2013 | | [place], [place] | | | | | | [address] | | | | | | [phone] | | | +--------+ + + + [...]
--- OUTSIDE RECORDS SUMMARY | ~2020-05-29 | XMS | Encounter Summary ---
Demographics + + + | Address | [address] | | | [place] [address] | + + + | Home Phone [...] + + + | Author | [place] [employer]le [employer] [facility] | + + + | Organization | [facility] [employer] [facility] | + [...] Team Providers + +------+ + | Care Portable Canteen Operator Name | Role | Phone | [...] | | | [place] Mailcode: [id number] | [place], [place] | | | | | [place], [place] | [address] | | | | | [address] | [phone] | | | | | [phone] | | | +--------+ + + + [...]
--- OUTSIDE RECORDS SUMMARY | ~2020-05-29 | XMS | Encounter Summary ---
Demographics + + + | Address | [address] | | | [place] [address] | + + + | Home Phone [...] + | Organization | [facility] | | [...] Providers + +------+ + | Care Business Attorney Name | Role | Phone | + +------+ + PCP | Unavailable | + +------+ + Encounter Details +--------+ + + + + | Date | Type | Department | Care Team | Description | +--------+ + + + + | 07/14/ | Hospital | [facility] | | | | 1998 | Encounter | MED CTR EMERGENCY | | | | | | CENTER [address] | | | | | | [place] | | | | | | [address] | | | | | | [phone] | | | +--------+ + + + [...]
--- OUTSIDE RECORDS SUMMARY | ~2020-05-29 | XMS | Encounter Summary ---
Demographics + + + | Address | [address] | | | [place] [address] | + + + | Home Phone [...] + + + | Author | [place] [employer] [facility] | + + + | Organization | [facility] [email or web address] [facility] | [...] Providers + +------+ + | Care Commercial Intelligence Manager Name | Role | Phone | [...] | | | Ave Mailcode: CH8N | [place], [place] | | | | | [facility] | [address] | | | | | and Healing, | [phone] | | | | | [facility] | | | | | | Floor [place], [place] | | | | | | [address] | | | | | | [phone] | | | +--------+--------+ + + + [...]
--- OUTSIDE RECORDS SUMMARY | ~2020-05-29 | XMS | Encounter Summary ---
Demographics + + + | Address | [address] | | | [place] [address] | + + + | Home Phone [...] + + + | Author | [place] [employer] [facility] | + + + | Organization | [facility] Back[employer] [facility] | + [...] Providers + +------+ + | Care Pest Controller Assistant Name | Role | Phone | [...] Other | | 2005 | | [facility] | FLOR[place]-Norma [address] | | | | | [address] Mailcode:OP14B | [place], [place] | | | | | [facility] | [address] | | | | | [place], [place] | | | | | | [address] | | | | | | [phone] | | | +--------+ + + + [...]
--- OUTSIDE RECORDS SUMMARY | ~2020-05-29 | XMS | Encounter Summary ---
Demographics + + + | Address | [address] | | | [place] [address] | + + + | Home Phone [...] [facility] | | | [...] Providers + +------+ + | Care Billet Checker Name | Role | Phone | + +------+ + PCP | Unavailable | + +------+ + Encounter Details +--------+ + + + + | Date | Type | Department | Care Team | Description | +--------+ + + + + | 01/01/ | Hospital | [facility] | [place], | | | 2009 | Encounter | MED CTR EMERGENCY | Brad Yu MD [address] | | | | | [place] [address] [place] | [place] [address] | | | | | [place] | [place] [address] | | | | | [address] | [phone] | | | | | [phone] | | | +--------+ + + + [...]
--- OUTSIDE RECORDS SUMMARY | ~2020-05-29 | XMS | Encounter Summary ---
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 Visual Acuity: [facility] RE 20/20-1 LE 20/25-2 NI [...]
--- OUTSIDE RECORDS SUMMARY | ~2020-05-29 | XMS | Encounter Summary ---
Demographics + + + | Address | [address] | | | [place] [address] | + + + | Home Phone [...] + + + | Author | [place] medidametrics [facility] | + + + | Organization | [facility] [employer] [facility] | + [...] Team Providers + +------+ + | Care Installment Loan Collector Name | Role | Phone | [...] Rd | | | | | [facility] | [place], [place] | | | | | [place], [place] | [address] | | | | | [address] | [phone] | | | | | [phone] | | | +--------+ + + + [...]
--- OUTSIDE RECORDS SUMMARY | ~2020-05-29 | XMS | Encounter Summary ---
Demographics + + + | Address | [address] | | | [place] [address] | + + + | Home Phone [...] + + + | Author | [place] Secure Outcomes [facility] | + + + | Organization | [facility] [employer] [facility] | + [...] Providers + +------+ + | Care Stationary Engineer Apprentice Name | Role | Phone | [...] Cerebri | | 2006 | Visit | [place] | | | | | | Photography at | | | | | | [address] | | | | | | [address] | | | | | | Eye [place], 4th | | | | | | floor [place], [place] | | | | | | [address] | | | +--------+---------+ + + + [...] PM DINOAnnabella Au was seen in the [place] [facility] [place] [facility]/Ultrasound Department today, 11/30/2006, for ultrasound OU [...]
--- OUTSIDE RECORDS SUMMARY | ~2020-05-29 | XMS | Encounter Summary ---
Demographics + + + | Address | [address] | | | [place] [address] | + + + | Home Phone [...] | [facility] | | | and [...] Team Providers + +------+ + | Care Highway Maintenance Crew Worker Name | Role | Phone | + +------+ + PCP | Unavailable | + +------+ + Encounter Details +--------+ + + + + | Date | Type | Department | Care Team | Description | +--------+ + + + + | 06/19/ | Hospital | [facility] | | | | 1991 | Encounter | MED CTR WOMENS | | | | | | HEALTH [address] | | | | | | [place], | | | | | | [place] [address] | | | | | | [phone] | | | +--------+ + + + [...]
--- OUTSIDE RECORDS SUMMARY | ~2020-05-29 | XMS | Encounter Summary ---
Demographics + + + | Address | [address] | | | [place] [address] | + + + | Home Phone [...] + + + | Author | [place] SensingStrip Science [facility] | + + + | Organization | [facility] [employer] [facility] [...] Providers + +------+ + | Care Gas Appliance Installer Name | Role | Phone | [...] | | | | | | | [place], [place] | | | | | | | [address] | | | | | | | Phone: | | | | | | | [phone] | | | | | | | Fax: | | | | | | | [phone] | +--------+--------+ + + + + Encounter [...] [place] | | | | | [address] [place] [facility] | MD Holden,PhD | | | | | [place] | | | | | | [address] | | | | | | [phone] | | | +--------+ + + + [...] Dennis, | | | | | | M.D.Anthropology Lecturer surgeon: . | | | | | [...] | | | | | cervical region, ERITREAN and | | | | | | [...] | | | | | | vein with6-[place] Envoy | | | | | | [...] artery. | | | | | | [id number] Berenstein | | | | | | [...] | | | | | with a 6-[place] Envoy | | | | | | [...]
--- OUTSIDE RECORDS SUMMARY | ~2020-05-29 | XMS | Encounter Summary ---
Demographics + + + | Address | [address] | | | [place] [address] | + + + | Home Phone [...] + + | Author | [place] Bannerman [facility] | + + + | Organization | [facility] Notary[employer] [facility] | + [...] Providers + +------+ + | Care Data Entry Clerk Name | Role | Phone | [...] Cerebri; | | 2006 | Visit | [place] | [address] | Pain in or Around | | | | Oculoplastics at | [place], [place] | Eye | | | | [address] | [address] | | | | | [address] | [phone] | | | | | Eye [place] | | | | | | [facility], [facility] floor | | | | | | [place] [address] | | | | | | [phone] | | | +--------+---------+ + + + [...] to be seen here or by an territory manager general sales in [facility], but she says she does not have transportation. I will call in Vicodin #20, pt to call i mmediately if there is any worsening. Pt states lucho lump in left mandaen is gone. No pain. Pt. Had cough [...]
--- OUTSIDE RECORDS SUMMARY | ~2020-05-29 | XMS | Encounter Summary ---
Demographics + + + | Address | [address] | | | [place] [address] | + + + | Home Phone [...] + + + | Author | [place] [employer] [facility] | + + + | Organization | [facility] Thinkature [facility] [...] + +------+ + | Care Director Of Research Center Name | Role | Phone | + [...] | Prescription | | 2012 | | [place]/Ophthalmol | MD [place] | | | | | [place] at [facility] [address] | | | | | | Gianluca Kirk Mailcode: | | | | | | CH11P [facility] | | | | | | Health and [facility], | | | | | | Building | | | | | | [place], [place] | | | | | | [address] | | | | | | [phone] | | | +--------+ + + + [...]
--- OUTSIDE RECORDS SUMMARY | ~2020-05-29 | XMS | Encounter Summary ---
Demographics + + + | Address | [address] | | | [place] [address] | + + + | Home Phone [...] + + + | Author | [place] [employer]omBoom [employer] [facility] | + + + | Organization | [facility] [employer]Assess [facility] [...] Team Providers + +------+ + | Care Borematic Machine Operator Name | Role | Phone [...] | | | Ave Mailcode: CH8N | [place], [place] | | | | | [facility] | [address] | | | | | and Healing, | [phone] | | | | | [facility] | | | | | | Floor [place], [place] | | | | | | [address] | | | | | | [phone] | | | +--------+ + + + [...]
[~2020-05-29 15:52] MED LIST changes: +ZOLOFT50 MG PO
== END 2020-05-29 19:44 | disposition left against medical advice (07) ==
LOC: ED 15:52
DX: T40.601A Poisoning by unspecified narcotics, accidental (unintentional), initial encounter (principal); E11.9 Type 2 diabetes mellitus without complications; I10 Essential (primary) hypertension; J44.9 Chronic obstructive pulmonary disease, unspecified; F17.200 Nicotine dependence, unspecified, uncomplicated; Z88.1 Allergy status to other antibiotic agents; Z88.5 Allergy status to narcotic agent; Z88.8 Allergy status to other drugs, medicaments and biological substances; Z79.899 Other long term (current) drug therapy; Z79.84 Long term (current) use of oral hypoglycemic drugs; Z53.21 Procedure and treatment not carried out due to patient leaving prior to being seen by health care provider
CPT/HCPCS: 80053; 84484; 85025; 96361; 96374; 96376; 99284-25; G0480; J2310; J7030

== ENCOUNTER 2020-05-29 22:45 | Emergency (ER) | payer OTHER ==
[~2020-05-29] VITALS: Ht 165.1 cm; Wt 90.7 kg
--- OUTSIDE RECORDS SUMMARY | ~2020-05-29 | XMS | Encounter Summary ---
Demographics + + + | Address | [address] | | | [place] [address] | + + + | Home Phone | | + + + | Preferred Language | Unknown | + + + | Marital Status | | + + + | Religion Affiliation | Unknown | + + + | Race | Unknown | + + + | Ethnic Group | Unknown | + + + Author + + + | Author | [facility] | | | and [place] | + + + | Organization | [facility] | | | and [place] | + + + | Address | Unknown | + + + | Phone | Unavailable | + + + Support + + +---------+ + | Name | Relationship | Address | Phone | + + +---------+ + | Saad Chamorro | ECON | Unknown | | + + +---------+ + Care Team Providers + +------+ + | Care Fusing Furnace Loader Name | Role | Phone | + +------+ + PCP | Unavailable | + +------+ + Encounter Details +--------+ + + + + | Date | Type | Department | Care Team | Description | +--------+ + + + + | 04/21/ | Hospital | [facility] | | | | 1995 | Encounter | MED CTR EMERGENCY | | | | | | CENTER [address] | | | | | | [place] | | | | | | [address] | | | | | | [phone] | | | +--------+ + + + + Social History + +-------+ +--------+------+ | Tobacco Use | Types | Packs/Day | Years | Date | | | | | Used | | + +-------+ +--------+------+ | Never Assessed | | | | | + +-------+ +--------+------+ + + + | Sex Assigned at | Date Recorded | | | | + + + | Not on file | | + + + documented as of this encounter Plan of Treatment Not on filedocumented as of this encounter Visit Diagnoses Not on filedocumented in this encounter"
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
--- OUTSIDE RECORDS SUMMARY | ~2020-05-29 | XMS | Encounter Summary ---
Demographics + + + | Address | [address] | | | [place] [address] | + + + | Home Phone | | + + + | Preferred Language | Unknown | + + + | Marital Status | | + + + | Yazidism Affiliation | Unknown | + + + | Race | Unknown | + + + | Ethnic Group | Unknown | + + + Author + + + | Author | [facility] | | | and [place] | + + + | Organization | [facility] | | | and [place] | + [...] Team Providers + +------+ + | Care Platform Worker Name | Role | Phone | + +------+ + PCP | Unavailable | + +------+ + Encounter Details +--------+ + + + + | Date | Type | Department | Care Team | Description | +--------+ + + + + | 03/03/ | Emergency | [facility] | Artis Reyes DO | Pain, abdominal, | | 2012 | | [facility]ENTER | [address] | unknown etiology | | | | EMERGENCY CENTER | [place], [place] | | | | | [address] [facility] | [address] | | | | | [place], [place] | [phone] | | | | | [address] | | | | | | [phone] | | | +--------+ + + + [...] + + documented as of this encounter ED Notes Conversion Transaction, Provider Unknown - 03/03/2013 8:33 PM PDTFormatting of this note m ight be different from the original. ED Notes by Jovanny Collado RN at 03/03/132032 Author: Jovanny Collado RN Service: (none) Author Type: Registered Nurse Filed: 03/03/132032 Date of Service: 03/03/132032 Status: Signed L Tacker: Jovanny Collado RN (Registered Nurse) Dr. Reyes @ BS Jovanny Collado RN 03/03/132032 onver ludwin Transaction, Provider Unknown - 03/03/2013 6:56 PM PDT ED Notes by Jovanny Collado RN at 03/03/131855 Author: Jovanny Collado RN Service: (none) Author Type: Registered Nurse Filed: 03/03/131855 Date of Service: 03/03/131855 Status: Signed L Tacker: Jovanny Collado RN (Registered Nurse) Dr. Reyes @ BS Jovanny Collado RN 03/03/131855 rtis Reyes DO - 03/03/2013 6:55 PM PDTFormatting of this note might be different from the or iginal. ED Provider Notes by Artis Reyes DO at 03/03/131854 Author: Artis Reyes DO Service: (none) Author Type: Physician Filed: 03/04/132236 Date of Service: 03/03/131854 Status: Signed L Tacker: Artis Reyes DO (Physician) [facility] Department of Emergency Medicine 6:55 PM History of Present Illness Patient Identification Annabella Au is a 37 y.o. female. Patient information was obtained from patient. History/Exam limitations: none. Patient presented to the Emergency Department by: Other Chief Complaint Chief Complaint Patient presents with Emesis 2 x today Abdominal Pain upper The patient presents to ED with complaints of abdominal pain that began "a few days ago". O nset of symptoms was gradual, with a waxing and waning since that time. The symptoms are linda cribed to be of moderate severity. The patient reports she was recently seen by her PCP for similar symptpoms and was told she may have H pylori. Pt was prescribed Naproxen for pain, w hich she reports she has quit taking. The patient also complains of nausea and vomiting that began about 30 minutes ago. Patient denies fever. No care prior to arrival Pt's surgical history ncludes; cholecystectomy, appendectomy, and one . PCP: [facility] Past Medical History Diagnosis Date Diabetes mellitus type II Past Surgical History Procedure Date Cholecystectomy Shoulder arthroscopy w/ rotator cuff repair right Tonsillectomy section Ventriculoperitoneal shunt Carpal tunnel release bilateral Appendectomy Prior to Admission medications Not on File Allergies Allergen Reactions Codeine Hives Morphine Hives Augmentin Nausea and Vomiting History Social History Marital Status: Spouse Name: N/A Number of Children: N/A Years of Education: N/A Occupational History Not on file. Social History Main Topics Smoking status: Smoker, Current Status Unknown -- 1.0 packs/day Smokeless tobacco: Not on file Alcohol Use: No Drug Use: No Sexually Active: Other Topics Concern Not on file Social History Narrative No narrative on file History reviewed. No pertinent family history. Review of Systems Constitutional: Negative for fever, chills Eyes: Negative for vision changes Nose: Negative for congestion, nosebleeds Throat: Negative for sore throat CV/Resp: Negative for chest pain, fvkceovbn-ll-rnlqbc, cough GI: Negative for diarrhea Positive for upper abdominal pain, nausea, vomiting : Negative for urinary problems Musculoskeletal: Negative for back pain, joint pain Skin: Negative for rash Neuro/Psych: Negative for headache Endo/heme/Lymph: Negative for swollen lymph nodes, easy bruising All other systems reviewed and negative except as noted. Physical Exam BP 163/101 | Pulse 101 | Temp(Src) 98.3 F (36.8 C) (Oral) | Resp 18 | Ht 1.651 m (5' 5" ) | Wt 127.688 kg (281 lb 8 oz) | BMI 46.84 kg/m2 | SpO2 98% Vital signs interpretation: hypertensive, tachycardic, otherwise normal Pulse Oximetry interpretation: Normal General: Alert, in no apparent distress Eyes: Normal inspection, pupils equal and round, non-icteric ENT: Ears normal Nose normal Pharynx normal Neck: Normal inspection Supple Cardiovascular: Rate and rhythm normal No murmurs Respiratory: Breath sounds normal bilaterally No rales, wheezing or rhonchi Abdomen: Soft, tenderness to palpation of the central upper epigastric region, and left upp er quadrant Non-distended No guarding or rebound Back: Normal inspection Skin: Color normal Warm and dry No rash Neuro: Alert, no AMS No gross motor/sensory deficits Medical Decision Making and Emergency Department Course ED Department Course The patient presents to ED with complaints of abdominal pain that began "a few days ago". T he patient reports she was recently seen by her PCP for similar symptpoms and was told she m ay have H pylori. Pt was prescribed Naproxen for pain, which she reports she has quit taking . The patient also complains of nausea and vomiting that began about 30 minutes ago. Patient denies fever. On exam the patient has tenderness to palpation of the central upper epigastr ic region, and left upper quadrant. My DDx includes, but is not limited to: gastritis, pepti c ulcer disease, pancreatitis, vs other. Will order labs, urine studies, IV fluids, Dilaudid , Zofran, IV fluids, and reevaluate the patient. Patient is stable at this time. 8:32 PM Reviewed labs. No significant findings. 8:33 PM Patient reevaluation. Patient is stable and feeling better at this time. Informed pt to use 1 tablespoon Maalox every 6 hours to alleviate symptoms. I discussed all ED results and my clinical impression with the patient. Patient is ready for discharge. I advised patient to follow up with a PCP and we discussed the emergent signs and symptoms that would necessitate a return to ED. All questions and concerns addressed. Will discharge home with Rx for Vicod in and Bentyl. Pt agrees to plan. Records Reviewed Nursing notes. No previous [facility] visits available in [facility] for review. Laboratory Evaluation Results Procedure Component Value Ref Range Date/Time Comprehensive metabolic panel [[id number]] (Abnormal) Collected:03/03/131922 Order Status:Completed Updated:03/03/131953 Specimen Information:Blood SODIUM 141 135 - 143 mmol/L POTASSIUM 3.7 3.5 - 4.9 mmol/L CHLORIDE 104 99 - 109 mmol/L CO2 26 23 - 32 mmol/L ANION GAP AGAP 15 5 - 20 mmol/L GLUCOSE 123 (H) 65 - 99 mg/dL BUN 15 8 - 25 mg/dL CREATININE 1.00 0.50 - 1.00 mg/dL BUN/CREAT 15 CALCIUM 7.9 (L) 8.5 - 10.2 mg/dL TOTAL PROTEIN 7.7 6.3 - 8.2 g/dL Albumin 3.5 (L) 3.6 - 5.0 g/dL GLOBULIN 4.1 1.3 - 4.9 g/dL A/G 0.9 (L) 1.0 - 2.4 TBIL 0.2 0.1 - 1.5 mg/dL ALK PHOS 78 35 - 115 U/L AST 21 10 - 45 U/L ALT 17 10 - 65 U/L EGFR >60 >60 mL/min/1.73m2 Lipase [[id number]] Collected:03/03/131922 Order Status:Completed Updated:03/03/131953 Specimen Information:Blood LIPASE 177 73 - 393 U/L Urine test (LAB) [[id number]] Collected:03/03/131939 Order Status:Completed Updated:03/03/131950 Specimen Information:Urine Preg Test, Ur NEGATIVE POC clinitek 10 [[id number]] (Abnormal) Collected:03/03/131940 Order Status:Completed Updated:03/03/131943 Color, UA YELLOW Clarity, UA CLEAR Glucose, UA NEGATIVE NEGATIVE mg/dL Bilirubin, UA NEGATIVE NEGATIVE Ketones, UA NEGATIVE NEGATIVE mg/dL Spec Grav, UA 1.015 1.001 - 1.035 Blood, UA TRACE (A) NEGATIVE pH, UA 5.5 4.6 - 8.0 Protein, UA NEGATIVE NEGATIVE mg/dL Urobilinogen, UA 0.2 <1.1 mg/dL Nitrite, UA NEGATIVE NEGATIVE WBC, UA NEGATIVE NEGATIVE CBC with differential [[id number]] Collected:03/03/131922 Order Status:Completed Updated:03/03/131935 Specimen Information:Blood WBC 9.6 3.8 - 11.0 K/uL RBC 4.55 3.70 - 5.10 M/uL HGB 12.5 11.3 - 15.5 g/dL HCT 38.7 34.0 - 46.0 % MCV 85.2 80.0 - 100.0 fl MCH 27.6 27.0 - 34.0 pg MCHC 32.4 32.0 - 35.5 g/dL RDW SD 47.3 37 - 53 fl PLT 193 150 - 400 K/uL MPV 10.1 fl DIFF TYPE AUTOMATED NEUTROPHILS 52.1 40 - 75 % LYMPHOCYTES 38.4 15 - 48 % MONOCYTES 5.9 0 - 12 % EOSINOPHILS 2.9 0 - 7 % BASOPHILS 0.7 0 - 2 % NEUTROPHILS ABS 5.0 1.9 - 7.4 K/uL LYMPHOCYTES ABS 3.7 1.0 - 3.9 K/uL MONOCYTES ABS 0.6 0 - 0.8 K/uL EOSINOPHILS ABS 0.3 0 - 0.5 K/uL BASOPHILS ABS 0.1 0 - 0.1 K/uL I personally reviewed the lab results and they have been posted to the chart. Pertinent po sitive and negative findings have been addressed appropriately. ED Diagnosis Final diagnosis Pain, abdominal, unknown etiology Disposition: ED Disposition Discharge Condition at discharge: Stable Follow-up Information Follow up With Details Comments Contact Info [facility] As needed [address] [place] [address] [facility] EMERGENCY DEPARTMENT If symptoms worsen [address] [facility] [address] Discharge Medications: New Prescriptions DICYCLOMINE (BENTYL) 20 MG TABLET Take 1 tablet by mouth every 6 (six) hours. HYDROCODONE-ACETAMINOPHEN (VICODIN) 5-500 MG PER TABLET Take 1-2 tablets by mouth every 6 (six) hours as needed for Pain. Additional Documentation Procedures Attending Note: Documentation assistance provided by Sean Ortez (Scribe). Information recorded by the scribe has been reviewed and validated by me. Simon nolasco with its contents. DO Artis Max DO 03/04/13 2237 documented in this en counter Plan of Treatment Not on filedocumented as of this encounter Visit Diagnoses + + | Diagnosis | + + | Pain, abdominal, unknown etiology Abdominal pain, unspecified site | + + documented in this encounter
--- OUTSIDE RECORDS SUMMARY | ~2020-05-29 | XMS | Encounter Summary ---
Demographics + + + | Address | [address] | | | [place] [address] | + + + | Home Phone | | + + + | Preferred Language | Unknown | + + + | Marital Status | | + + + | Holiness Affiliation | NON | + + + | Race | or | + + + | Ethnic Group | Not or | + + + Author + + + | Author | [place] [facility] [facility] | + + + | Organization | [facility] | + + + | Address | Unknown | + + + | Phone | Unavailable | + + + Support + + +---------+ + | Name | Relationship | Address | Phone | + + +---------+ + | Ruby Au | ECON | Unknown | | + + +---------+ + Care Team Providers + +------+ + | Care Clinic Manager Name | Role | Phone | + +------+ + | Pedro Luis Sams MD | PCP | | + +------+ + Reason for Visit + + + | Reason | Comments | + + + | Medication requested | | + + + Encounter Details +--------+ + + + + | Date | Type | Department | Care Team | Description | +--------+ + + + + | 09/01/ | Telephone | Neurosurgery at | Sam Pedroza MD | Medication requested | | 2010 | | [facility] [address] | [address] | | | | | Ave Mailcode: CH8N | [place], [place] | | | | | [facility] | [address] | | | | | and [place], | [phone] | | | | | [facility] | | | | | | Floor [place], [place] | | | | | | [address] | | | | | | [phone] | | | +--------+ + + + [...]
--- OUTSIDE RECORDS SUMMARY | ~2020-05-29 | XMS | Encounter Summary ---
Demographics + + + | Address | [address] | | | [place] [address] | + + + | Home Phone | | + + + | Preferred Language | Unknown | + + + | Marital Status | | + + + | Hoahaoism Affiliation | NON | + + + | Race | or | + + + | Ethnic Group | Not or | + + + Author + + + | Author | [place] [employer] [facility] | + + + | Organization | [facility] | + + + | Address | Unknown | + + + | Phone | Unavailable | + + + Support + + +---------+ + | Name | Relationship | Address | Phone | + + +---------+ + | Ruby Au | ECON | Unknown | | + + +---------+ + Care Team Providers + +------+ + | Care Facilities Administrator Name | Role | Phone | [...] | +--------+ + + + + | 11/12/ | Telephone | [facility] | Bryan Wilson | Headache | | 2005 | | Collins/Ophthalmol | MD Jordin | | | | | leon at [facility] [address] | | | | | [address] [place] Mailcode: | | | | | | CH[address] [facility] | | | | | | Health and Healing, | | | | | | Building | | | | | | Floor [place], [place] | | | | | | [address] | | | | | | [phone] | | | +--------+ + + + [...]
--- OUTSIDE RECORDS SUMMARY | ~2020-05-29 | XMS | Encounter Summary ---
Demographics + + + | Address | [address] | | | [place] [address] | + + + | Home Phone | | + + + | Preferred Language | Unknown | + + + | Marital Status | | + + + | Taoism Affiliation | NON | + + + | Race | or | + + + | Ethnic Group | Not or | + + + Author + + + | Author | [place] [employer] [facility] | + + + | Organization | [facility] | + + + | Address | Unknown | + + + | Phone | Unavailable | + + + Support + + +---------+ + | Name | Relationship | Address | Phone | + + +---------+ + | Ruby Au | ECON | Unknown | | + + +---------+ + Care Team Providers + +------+ + | Care Licensing Representative Name | Role | Phone | [...] | +--------+ + + + + | 05/16/ | Telephone | Neurosurgery [address] | Sam Pedroza MD | Headache | | 2007 | | [address] | [address] | | | | | Physician's | [place], [place] | | | | | [place] floor | [address] | | | | | [place], [place] | [phone] | | | | | [address] | | | | | | [phone] | | | +--------+ + + + [...]
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
--- OUTSIDE RECORDS SUMMARY | ~2020-05-29 | XMS | Encounter Summary ---
Demographics + + + | Address | [address] | | | [place] [address] | + + + | Home Phone | | + + + | Preferred Language | Unknown | + + + | Marital Status | | + + + | Jain Affiliation | Unknown | + + + | Race | Unknown | + + + | Ethnic Group | Unknown | + + + Author + + + | Author | [facility] | | | and [place] | + + + | Organization | [facility] | | | and [place] [...] Team Providers + +------+ + | Care Credit Reporter Name | Role | Phone | + +------+ + PCP | Unavailable | + +------+ + Encounter Details +--------+ + + + + | Date | Type | Department | Care Team | Description | +--------+ + + + + | 05/31/ | Hospital | [facility] | | | | 1991 | Encounter | [facility] | | | | | | HEALTH [address] | | | | | | [place], | | | | | | [place] [address] | | | | | | [phone] | | | +--------+ + + + [...]
--- OUTSIDE RECORDS SUMMARY | ~2020-05-29 | XMS | Encounter Summary ---
Demographics + + + | Address | [address] | | | [place] [address] | + + + | Home Phone | | + + + | Preferred Language | Unknown | + + + | Marital Status | | + + + | Baptist Affiliation | Unknown | + + + | Race | Unknown | + + + | Ethnic Group | Unknown | + + + Author + + + | Author | [facility] | | | and [place] | + + + | Organization | [facility] | | | and [...] Team Providers + +------+ + | Care Perl Developer Name | Role | Phone | + +------+ + PCP | Unavailable | + +------+ + Encounter Details +--------+ + + + + | Date | Type | Department | Care Team | Description | +--------+ + + + + | 08/12/ | Hospital | [facility] | Jenn [place], | | | 2012 | Encounter | HOSPITAL EMERGENCY | [facility] [address] | | | | | CENTER [address] | [place] | | | | | [place] | [id number] | | | | | [address] | | | | | | [phone] | | | +--------+ + + + [...]
--- OUTSIDE RECORDS SUMMARY | ~2020-05-29 | XMS | Encounter Summary ---
Demographics + + + | Address | [address] | | | [place] [address] | + + + | Home Phone | | + + + | Preferred Language | Unknown | + + + | Marital Status | | + + + | Christianity Affiliation | NON | + + + | Race | or | + + + | Ethnic Group | Not or | + + + Author + + + | Author | [place] [employer] [facility] | + + + | Organization | [facility] [employer] [facility] | + + + | Address | Unknown | + + + | Phone | Unavailable | + + + Support + + +---------+ + | Name | Relationship | Address | Phone | + + +---------+ + | Ruby Au | ECON | Unknown | | + + +---------+ + Care Team Providers + +------+ + | Care Potato Chip Cooker Machine Name | Role | Phone | + +------+ + | Brenden Benavides MD | PCP | | + +------+ + Reason for Visit + + + | Reason | Comments | + + + | Vision disorder | pseudotumor cerebri | + + + Encounter Details +--------+---------+ + + + | Date | Type | Department | Care Team | Description | +--------+---------+ + + + | 12/19/ | Office | [facility] | Brad Currie MD | Pseudotumor Cerebri | | 2006 | Visit | [facility] | | (Primary Dx) | | | | Neuro-Ophthalmology | | | | | | [address] [facility] | | | | | | Mailcode: CE | | | | | | [place] [address] | | | | | | [phone] | | | +--------+---------+ + + + [...] this encounter Progress Notes Brad Currie - 12/19/2006 1:47 PM PSTFormatting of this note might be different from the o lalito. Neuro-Ophthalmology Return Patient Evaluation 12/19/2006 Referred by: CASIMIRO PAYTON MD [address] [place] [address] Symptoms: She has not been taking her Diamox since she has had some vomiting related to th e flu and she thinks that the vision OD is getting like her left eye. She has had some valles sient visual obscurations. The left eye has been doing this frequently while this has only occurred about 4 times in the right eye. She has been having pulsatile tinnitus. Current outpatient prescriptions Medication Sig DIAMOX OR 500 mg bid IBUPROFEN 800 MG TAB 1 am and 1 nite Allergies: Codeine and Cephalexin Review of Systems: Cardiac: negative Pulmonary: flu GI: negative : negative Musculoskeletal: negative Psych/Neuro: negative General Appearance: Healthy, no apparent distress. Visual Acuity: Vasc Vacc VAph RE 20/20 20/- 20/- LE 20/20 20/- 20/- Color Vision: RE AOHRR 9/10 Ishihara -/16 LE AOHRR 8.5/10 Ish[place]ara -/16 Lids: Normal EOM's: Fixation: normal Saccades: normal Pursuit: normal Convergence: normal Nystagmus: none Strabimus: no Pupils: RE LE Sluggish: no no RAPD: no no Dilation Lag: no no Size (mm) Dark: Size (mm) Light: Confrontational VF: normal Visual Neglect: None GOLDMANN PERIMETRY FIRST EYE TESTED: Right Examiner: Kush Add OD: +0.00 Add OS: +1.50 FINDINGS: Static and kinetic perimetry was performed using 3 isopters OU. Fixation was exc ellent. Cooperation was good. Foveal threshold was I1e OD and I1e OS. There was an infero nasal step OS that is about the same if not just slightly worse than her last examination 3 weeks ago. Both physiologic blind spots are enlarged. Alert and Oriented x 3: yes Verbal Memory: Grossly normal Speech normal?: yes Face normal?: Yes Fundi: Dilated Funduscopy revealed no abnormalities of mild to moderate edema of both optic nerves. There are tortuous blood vessels OU. Impression: 1) Active pseudotumor cerebri Plan: She needs to restart her Diamox. She is going to do this and I will see her in a mo nth. I do not think that she is at risk of any further vision loss as long as she is taking the medication. Brad Currie MD Neuro-Ophthalmology and Cerebrovascular Disease Customer Project Manager of Ophthalmology, Neurology, and Neurosurgery documented in this encounter Plan of Treatment + + +--------+ + + | Name | Type | Priori | Associated Diagnoses | Order Schedule | | | | ty | | | + + +--------+ + + | MS VISUAL FIELD | Procedures | Routin | Pseudotumor | Ordered: 12/19/2006 | | EXAM,EXTENDED | | e | Cerebri | | + + +--------+ + + documented as of this encounter Visit Diagnoses + + | Diagnosis | + + | Pseudotumor cerebri - Primary Benign intracranial hypertension | + + documented in this encounter"
--- OUTSIDE RECORDS SUMMARY | ~2020-05-29 | XMS | Encounter Summary ---
Demographics + + + | Address | [address] | | | [place] [address] | + + + | Home Phone | | + + + | Preferred Language | Unknown | + + + | Marital Status | | + + + | Episcopal Affiliation | Unknown | + + + | Race | Unknown | + + + | Ethnic Group | Unknown | + + + Author + + + | Author | [facility] | | | and [place] | + + + | Organization | [facility] | | | and [...] Team Providers + +------+ + | Care Assistant Professor Of Spanish Name | Role | Phone | + +------+ + PCP | Unavailable | + +------+ + Encounter Details +--------+ + + + + | Date | Type | Department | Care Team | Description | +--------+ + + + + | 06/19/ | Hospital | [facility] | | | | 1991 | Encounter | MED [facility] | | | | | | [facility] [address] | | | | | | [place], | | | | | | [place] [address] | | | | | | [phone] | | | +--------+ + + + [...]
--- OUTSIDE RECORDS SUMMARY | ~2020-05-29 | XMS | Encounter Summary ---
Demographics + + + | Address | [address] | | | [place] [address] | + + + | Home Phone | | + + + | Preferred Language | Unknown | + + + | Marital Status | | + + + | Cheondoism Affiliation | NON | + + + | Race | or | + + + | Ethnic Group | Not or | + + + Author + + + | Author | [place] [employer] [facility] | + + + | Organization | [facility] [employer] [facility] | + [...] Team Providers + +------+ + | Care Wharf Labourer Name | Role | Phone | + +------+ + | Pedro Luis Sams MD | PCP | | + +------+ + Encounter Details +--------+ + + + + | Date | Type | Department | Care Team | Description | +--------+ + + + + | 03/10/ | Telephone | Neurosurgery at | Steph Reyes MD | | | 2012 | | [facility] [address] | | | | | | [address] Mailcode: CH8N | | | | | | [facility] | | | | | | and Healing, | | | | | | Building [address] | | | | | | Floor [place], [place] | | | | | | [address] | | | | | | [phone] | | | +--------+ + + + [...]
--- OUTSIDE RECORDS SUMMARY | ~2020-05-29 | XMS | Encounter Summary ---
Demographics + + + | Address | [address] | | | [place] [address] | + + + | Home Phone [...] + | Organization | [facility] | | | and [place] [...] Team Providers + +------+ + | Care Shape Hand Name | Role | Phone | + +------+ + PCP | Unavailable | + +------+ + Encounter Details +--------+ + + + + | Date | Type | Department | Care Team | Description | +--------+ + + + + | 10/27/ | Hospital | [facility] | | | | 1990 | Encounter | MED CTR EMERGENCY | | | | | | CENTER [address] | | | | | | [place] | | | | | | [address] | | | | | | [phone] | | | +--------+ + + + [...]
--- OUTSIDE RECORDS SUMMARY | ~2020-05-29 | XMS | Encounter Summary ---
Demographics + + + | Address | [address] | | | [place] [address] | + + + | Home Phone | | + + + | Preferred Language | Unknown | + + + | Marital Status | | + + + | Judaism Affiliation | NON | + + + | Race | or | + + + | Ethnic Group | Not or | + + + Author + + + | Author | [place] [facility] [facility] | + + + | Organization | [facility] | + + + | Address | Unknown | + + + | Phone | Unavailable | + + + Support + + +---------+ + | Name | Relationship | Address | Phone | + + +---------+ + | Ruby Au | ECON | Unknown | | + + +---------+ + Care Team Providers + +------+ + | Care Digital Advertising Analyst Name | Role | Phone | [...] Cerebri | | 2006 | Visit | [place] | | (Primary Dx) | | | | Neuro-Ophthalmology | | | | | | [address] [facility] | | | | | | Mailcode: CE | | | | | | [place] [address] | | | | | | [phone] | | | +--------+---------+ + + + [...] Referred by: CASIMIRO PAYTON MD [address] [place] [address] Symptoms: She has not been taking her [...] Brad Currie MD Neuro-Ophthalmology and Cerebrovascular Disease Cupola Tender of Ophthalmology, Neurology, and Neurosurgery documented in this encounter Plan of Treatment + + +--------+ + + | Name | Type | Priori | Associated Diagnoses | Order Schedule | | | | ty | | | + + +--------+ + + | PA VISUAL FIELD | Procedures | Routin | Pseudotumor | Ordered: 12/19/2006 | | EXAM,EXTENDED | | e | Cerebri | | + + +--------+ + + documented as of this encounter Visit Diagnoses + + | Diagnosis | + + | Pseudotumor cerebri - Primary Benign intracranial hypertension | + + documented in this encounter"
--- OUTSIDE RECORDS SUMMARY | ~2020-05-29 | XMS | Encounter Summary ---
Demographics + + + | Address | [address] | | | [place] [address] | + + + | Home Phone | | + + + | Preferred Language | Unknown | + + + | Marital Status | | + + + | Worship Affiliation | Unknown | + + + | Race | Unknown | + + + | Ethnic Group | Unknown | + + + Author + + + | Author | [facility] | | | and [place] | + + + | Organization | [facility] | | | and [...] Team Providers + +------+ + | Care Handkerchief Presser Name | Role | Phone | + +------+ + PCP | Unavailable | + +------+ + Encounter Details +--------+ + + + + | Date | Type | Department | Care Team | Description | +--------+ + + + + | 08/03/ | Hospital | [facility] | | | | 1990 | Encounter | MED CTR EMERGENCY | | | | | | CENTER [address] | | | | | | [place] | | | | | | [address] | | | | | | [phone] | | | +--------+ + + + [...]
--- OUTSIDE RECORDS SUMMARY | ~2020-05-29 | XMS | Encounter Summary ---
Demographics + + + | Address | [address] | | | [place] [address] | + + + | Home Phone | | + + + | Preferred Language | Unknown | + + + | Marital Status | | + + + | Latter-Day Affiliation | NON | + + + | Race | or | + + + | Ethnic Group | Not or | + + + Author + + + | Author | [place] [employer] [facility] | + + + | Organization | [facility] | + + + | Address | Unknown | + + + | Phone | Unavailable | + + + Support + + +---------+ + | Name | Relationship | Address | Phone | + + +---------+ + | Ruby Au | ECON | Unknown | | + + +---------+ + Care Team Providers + +------+ + | Care Senior Oracle Applications Developer Name | Role | Phone | [...] | | | Ave Mailcode: CH8N | [place], [place] | | | | | [facility] | [address] | | | | | and Healing, | [phone] | | | | | [facility] | | | | | | Floor [place], [place] | | | | | | [address] | | | | | | [phone] | | | +--------+---------+ + + + [...] + documented as of this encounter Progress Kiki Fallon - 08/19/2008 3:34 PM PDTErroroneous encounter No show documented in this encoun ter Plan of Treatment Not on filedocumented as of this encounter Visit Diagnoses + + | Diagnosis | + + | Pseudotumor cerebri - Primary Benign intracranial hypertension | + + documented in this encounter"
--- OUTSIDE RECORDS SUMMARY | ~2020-05-29 | XMS | Clinical Summary ---
Demographics + + + | Address | [address] | | | [place] [address] | + + + | Home Phone | | + + + | Preferred Language | Unknown | + + + | Marital Status | | + + + | Catholic Affiliation | Unknown | + + + | Race | Unknown | + + + | Ethnic Group | Unknown | + + + Author + + + | Author | [facility] | | | and [place] | + + + | Organization | [facility] | | | and [place] | + [...] Team Providers + +------+ + | Care Livestock Buyer Name | Role | Phone | + [...] | | TRIVALENT(PED/ADOL/A | | | | CHRIST SOTOMAYOR | | | + + + + [...] +---------+--------+ | MEDICAID [place] | MEDICA | [id number] | 11/09/ | [phone] | | Medica | | | [place] | | 2018-P | 2 | | id | | | PLUS | | resent | | | | + +--------+ +--------+ +---------+--------+ | [facility] | IHS | [id number] | 11/08/ | | | Indemn | [...] al/Fam | | 1975 | [phone] | [place] [address] | | | rene | | | 5 (Home) | | + +--------+ +--------+ + + Advance Directives + + + + + | Type | Date Recorded | Patient | Explanation | | | | Tourist Cabin Keeper | | + + + + + | Power of | | | | | Lye Boiler | | | | + + + + + | Advance | | | | | Directive | | | | + + + + +
--- OUTSIDE RECORDS SUMMARY | ~2020-05-29 | XMS | Encounter Summary ---
Demographics + + + | Address | [address] | | | [place] [address] | + + + | Home Phone [...] + + + | Author | [place] [facility] [facility] | + + + | Organization | [facility] | + + + | Address | Unknown | + + + | Phone | Unavailable | + + + Support + + +---------+ + | Name | Relationship | Address | Phone | + + +---------+ + | Ruby Au | ECON | Unknown | | + + +---------+ + Care Team Providers + +------+ + | Care Single Resource Boss Name | Role | Phone | + [...] [address] | | | | | CH[address] | [place], [place] | | | | | Health and Healing, | [address] | | | | | Building [address] | | | | | | Floor [place], [place] | | | | | | [address] | | | | | | [phone] | | | +--------+ + + + [...]
--- OUTSIDE RECORDS SUMMARY | ~2020-05-29 | XMS | Encounter Summary ---
Demographics + + + | Address | [address] | | | [place] [address] | + + + | Home Phone | | + + + | Preferred Language | Unknown | + + + | Marital Status | | + + + | Zoroastrian Affiliation | Unknown | + + + | Race | Unknown | + + + | Ethnic Group | Unknown | + + + Author + + + | Author | [facility] | | | and [place] | + + + | Organization | [facility] [...] Team Providers + +------+ + | Care Nascar Driver Name | Role | Phone | + +------+ + PCP | Unavailable | + +------+ + Encounter Details +--------+ + + + + | Date | Type | Department | Care Team | Description | +--------+ + + + + | 07/24/ | Hospital | [facility] | | | | 1990 | Encounter | MED CTR EMERGENCY | | | | | | CENTER [address] | | | | | | [place] | | | | | | [address] | | | | | | [phone] | | | +--------+ + + + [...]
--- OUTSIDE RECORDS SUMMARY | ~2020-05-29 | XMS | Encounter Summary ---
Demographics + + + | Address | [address] | | | [place] [address] | + + + | Home Phone [...] | Organization | [facility] | | | and [place] | [...] Team Providers + +------+ + | Care Corporate Safety Coordinator Name | Role | Phone | + +------+ + PCP | Unavailable | + +------+ + Encounter Details +--------+ + + + + | Date | Type | Department | Care Team | Description | +--------+ + + + + | 10/18/ | Hospital | [facility] | | | | 1991 | Encounter | [facility] | | | | | | HEALTH [address] | | | | | | [place], | | | | | | [place] [address] | | | | | | [phone] | | | +--------+ + + + [...]
--- OUTSIDE RECORDS SUMMARY | ~2020-05-29 | XMS | Encounter Summary ---
Demographics + + + | Address | [address] | | | [place] [address] | + + + | Home Phone [...] + + + | Author | [place] [employer] [facility] | + + + | Organization | Counts Include [facility] [employer] [facility] | + [...] Providers + +------+ + | Care Systems Technologist Name | Role | Phone | + +------+ + | Yeison Simms MD | PCP | Unavailable | + +------+ + Reason for Visit + + + | Reason | Comments | + + + | Letter From | | | Specialist | | + + + Encounter Details +--------+ + + + + | Date | Type | Department | Care Team | Description | +--------+ + + + + | 05/09/ | Telephone | Neurosurgery at | Sam Pedroza MD | Letter From | | 2007 | | [facility] | [address] | Specialist | | | | and Healing [address] | [place], [place] | | | | | [address] Mailcode: | [address] | | | | | [address] [facility] | [phone] | | | | | Health and Healing, | | | | | | [facility] | | | | | | Floor [facility] [place] | | | | | | [address] | | | | | | [phone] | | | +--------+ + + + [...]
--- OUTSIDE RECORDS SUMMARY | ~2020-05-29 | XMS | Encounter Summary ---
Demographics + + + | Address | [address] | | | [place] [address] | + + + | Home Phone [...] Organization | [facility] | | | and [...] Team Providers + +------+ + | Care Chicken Hatchery Helper Name | Role | Phone | + +------+ + PCP | Unavailable | + +------+ + Encounter Details +--------+ + + + + | Date | Type | Department | Care Team | Description | +--------+ + + + + | 06/20/ | Hospital | [facility] | Yovanny Suazo, | | | 1991 | Encounter | MED CTR [facility] | MD [address] | | | | | [facility] [address] | [address] | | | | | [place], | [place] [address] | | | | | [place] [address] | [phone] | | | | | [phone] | | | +--------+ + + + [...]
--- OUTSIDE RECORDS SUMMARY | ~2020-05-29 | XMS | Encounter Summary ---
Demographics + + + | Address | [address] | | | [place] [address] | + + + | Home Phone [...] + + + | Author | [place] [employer] [facility] | + + + | Organization | [facility] [employer] [facility] | + [...] Providers + +------+ + | Care Manager Urgent Care Name | Role | Phone | + [...] | | | Ave Mailcode: [address] | [place], [place] | | | | | [facility] | [address] | | | | | and Healing, | [phone] | | | | | [facility] | | | | | | Floor [place], [place] | | | | | | [address] | | | | | | [phone] | | | +--------+ + + + [...]
--- OUTSIDE RECORDS SUMMARY | ~2020-05-29 | XMS | Encounter Summary ---
Demographics + + + | Address | [address] | | | [place] [address] | + + + | Home Phone [...] + + | Author | [place] [employer] [facility] | + + + | Organization | [facility] | + + + | Address | Unknown | + + + | Phone | Unavailable | + + + Support + + +---------+ + | Name | Relationship | Address | Phone | + + +---------+ + | Ruby Au | ECON | Unknown | | + + +---------+ + Care Team Providers + +------+ + | Care Hand Coke Drawer Name | Role | Phone | + [...] Neurosurgery [address] | | | | | [facility] | [address] | | | | | and Healing, | [place], [place] | | | | | Building | [address] | | | | | Floor [place], [place] | | | | | | [address] | | | | | | [phone] | | | +--------+---------+ + + + [...]
--- OUTSIDE RECORDS SUMMARY | ~2020-05-29 | XMS | Encounter Summary ---
Demographics + + + | Address | [address] | | | [place] [address] | + + + | Home Phone [...] + + + | Author | [place] [employer] [facility] | + + + | Organization | [facility] [employer] [facility] | + [...] Team Providers + +------+ + | Care Lead Case Manager Name | Role | Phone | [...] Cerebri | | 2006 | Visit | [place] | [address] | (Primary Dx) | | | | Oculoplastics at | [place], [place] | | | | | [address] | [address] | | | | | [address] | [phone] | | | | | Eye [place] | | | | | | [facility], [address] [place] [address] | | | | | | [place] [address] | | | | | | [phone] | | | +--------+---------+ + + + [...] documented as of this encounter Progress Notes Ashley Jacobo - 02/08/2007 10:35 AM PDT Annabella Au [...]
--- OUTSIDE RECORDS SUMMARY | ~2020-05-29 | XMS | Encounter Summary ---
Demographics + + + | Address | [address] | | | [place] [address] | + + + | Home Phone | | + + + | Preferred Language | Unknown | + + + | Marital Status | | + + + | Muslim Affiliation | Unknown | + + + | Race | Unknown | + + + | Ethnic Group | Unknown | + + + Author + + + | Author | [facility] | | | and [place] | + + + | Organization | [facility] | | | and [...] Team Providers + +------+ + | Care Enforcement Manager Name | Role | Phone | [...] | | | [place] | [address] | | | | | [address] | [phone] | | | | | [phone] | | | +--------+ + + + [...]
--- OUTSIDE RECORDS SUMMARY | ~2020-05-29 | XMS | Encounter Summary ---
Demographics + + + | Address | [address] | | | [place] [address] | + + + | Home Phone [...] + + + | Author | [place] [email or web address] [facility] | + + + | Organization | [facility] [employer] [facility] | + + + | Address | Unknown | + + + | Phone | Unavailable | + + + Support + + +---------+ + | Name | Relationship | Address | Phone | + + +---------+ + | Ruby Au | ECON | Unknown | | + + +---------+ + Care Team Providers + +------+ + | Care Dental Billing Specialist Name | Role | Phone | [...] | Headache | | 2005 | | [place]/Ophthalmol | MD Jordin | | | | | leon at [facility] [address] | | | | | | [address] [place] Mailcode: | | | | | | [address] [facility] | | | | | | Health and Healing, | | | | | | Building | | | | | | Floor [place], [place] | | | | | | [address] | | | | | | [phone] | | | +--------+ + + + [...]
--- OUTSIDE RECORDS SUMMARY | ~2020-05-29 | XMS | Encounter Summary ---
Demographics + + + | Address | [address] | | | [place] [address] | + + + | Home Phone | | + + + | Preferred Language | Unknown | + + + | Marital Status | | + + + | Moravian Affiliation | NON | + + + | Race | or | + + + | Ethnic Group | Not or | + + + Author + + + | Author | [place] [employer] [facility] | + + + | Organization | [facility] [employer] [facility] | + + + | Address | Unknown | + + + | Phone | Unavailable | + + + Support + + +---------+ + | Name | Relationship | Address | Phone | + + +---------+ + | Ruby Au | ECON | Unknown | | + + +---------+ + Care Team Providers + +------+ + | Care Cargo Router Name | Role | Phone | + [...] | | | Ave Mailcode: [address] | [place], [place] | | | | | [facility] | [address] | | | | | and Healing, | [phone] | | | | | [facility] | | | | | | Floor [place], [place] | | | | | | [address] | | | | | | [phone] | | | +--------+ + + + [...]
--- OUTSIDE RECORDS SUMMARY | ~2020-05-29 | XMS | Encounter Summary ---
Demographics + + + | Address | [address] | | | [place] [address] | + + + | Home Phone [...] | Organization | [facility] [...] + +------+ + | Care Professor Of Biochemistry Name | Role | Phone | + +------+ + PCP | Unavailable | + +------+ + Encounter Details +--------+ + + + + | Date | Type | Department | Care Team | Description | +--------+ + + + + | 09/30/ | Hospital | [facility] | | | | 1990 | Encounter | MED CTR EMERGENCY | | | | | | CENTER [address] | | | | | | [place] | | | | | | [address] | | | | | | [phone] | | | +--------+ + + + [...]
--- OUTSIDE RECORDS SUMMARY | ~2020-05-29 | XMS | Encounter Summary ---
Demographics + + + | Address | [address] | | | [place] [address] | + + + | Home Phone [...] + + + | Author | [place] [employer] [facility] | + + + | Organization | [facility] [employer] [facility] | + + + | Address | Unknown | + + + | Phone | Unavailable | + + + Support + + +---------+ + | Name | Relationship | Address | Phone | + + +---------+ + | Ruby Au | ECON | Unknown | | + + +---------+ + Care Team Providers + +------+ + | Care Nuclear Equipment Design Engineer Name | Role | Phone [...] Refill Request | | 2006 | | [place] | [address] | | | | | Oculoplastics at | Rd [place], [place] | | | | | [facility] [address] | [address] | | | | | [address] | | | | | | Eye [place] | | | | | | [facility], [address] [place] [address] | | | | | | [place] [address] | | | | | | [phone] | | | +--------+ + + + [...]
--- OUTSIDE RECORDS SUMMARY | ~2020-05-29 | XMS | Encounter Summary ---
Demographics + + + | Address | [address] | | | [place] [address] | + + + | Home Phone [...] + + + | Author | [place] [employer] [facility] | + + + | Organization | [facility] [place] [facility] | + + + | Address | Unknown | + + + | Phone | Unavailable | + + + Support + + +---------+ + | Name | Relationship | Address | Phone | + + +---------+ + | Ruby Au | ECON | Unknown | | + + +---------+ + Care Team Providers + +------+ + | Care Crm Marketing Specialist Name | Role | Phone | [...] Erroneous Encounter | | 2007 | | [facility] | [facility] | - Disregard | | | | and Healing [address] | Neurosurgery [address] | | | | | [address] Mailcode: | [address] | | | | | [address] Center for | [place], [place] | | | | | Health and Healing, | [address] | | | | | Building 1, | | | | | | Floor [place], [place] | | | | | | [address] | | | | | | [phone] | | | +--------+--------+ + + + [...]
--- OUTSIDE RECORDS SUMMARY | ~2020-05-29 | XMS | Encounter Summary ---
Demographics + + + | Address | [address] | | | [place] [address] | + + + | Home Phone [...] + + | Author | [place] [employer] [facility] | + + + | Organization | [facility] [employer] Science [facility] [...] Team Providers + +------+ + | Care Lacquer Coater Name | Role | Phone | [...] Letter From | | 2007 | | [facility] | [address] | Specialist | | | | and Healing [address] | [place], [place] | | | | | [address] Mailcode: | [address] | | | | | CH8N [facility] | [phone] | | | | | Health and Healing, | | | | | | [facility] | | | | | | Floor [facility] [place] | | | | | | [address] | | | | | | [phone] | | | +--------+ + + + [...]
--- OUTSIDE RECORDS SUMMARY | ~2020-05-29 | XMS | Encounter Summary ---
Demographics + + + | Address | [address] | | | [place] [address] | + + + | Home Phone | | + + + | Preferred Language | Unknown | + + + | Marital Status | | + + + | Sabianism Affiliation | NON | + + + | Race | or | + + + | Ethnic Group | Not or | + + + Author + + + | Author | [place] [employer] [facility] | + + + | Organization | [facility] [employer] Science [facility] [...] Team Providers + +------+ + | Care Endoscopy Specialty Technician Name | Role | Phone | [...] | | | Ave Mailcode: CH8N | [place], [place] | | | | | [facility] | [address] | | | | | and Healing, | [phone] | | | | | [facility] | | | | | | Floor [place], [place] | | | | | | [address] | | | | | | [phone] | | | +--------+ + + + [...]
--- OUTSIDE RECORDS SUMMARY | ~2020-05-29 | XMS | Encounter Summary ---
Demographics + + + | Address | [address] | | | [place] [address] | + + + | Home Phone [...] + + + | Author | [place] [employer] Science [facility] | + + + | Organization | [facility] [employer] Science [facility] | [...] Team Providers + +------+ + | Care Sawmill Worker Name | Role | Phone | [...] | | Ophthalmology | | Non-[facility] | [place], | | | | | | Epic Dept | Graciela Guardado MD | | | | | | | [address] | | | | | | [address] | | | | | | | [place], [place] | | | | | | | [address] | | | | | | | Phone: | | | | | | | [phone] | | | | | | | Fax: | | | | | | | [phone] | +--------+--------+ + + + + Encounter Details +--------+---------+ + + + | Date | Type | Department | Care Team | Description | +--------+---------+ + + + | 03/26/ | Office | [facility] | Mo Hood | Pseudotumor cerebri | | 2012 | Visit | [place]/Ophthalmol | MD Perry | (Primary Dx); | | | | ogy at [facility] [address] | | Depression; Type II | | | | [address] Mailcode: | | or unspecified type | | | | [facility] Center for | | diabetes mellitus | | | | Health and Healing, | | without mention of | | | | Building | | complication, not | | | | Floor [place], [place] | | stated as | | | | [address] | | uncontrolled; PTSD | | | | [phone] | | (post-traumatic | | | | [...] HPI: 37 y.o. year old female from [place] : Patient presents with: IIH - Idiopathic [...] because they live 4 hours away in [facility]. Tobacco use: reports that she has been [...] Right Left Disc 1+ Optic disc edema, +FRUIT FARMER 2+ Optic disc edema, RNFL whitening at the superonasal borde r of the disc. There is spontaneous pulsing of the entire disc head with heart beat. C/D Ratio 0.1 0.1 Macula Normal Normal Vessels Engorged. tortuous Engorged. tortuous Periphery Normal Normal Neuro/Psych Oriented x3: Yes Mood/Affect: Normal See [facility] Ophthalmology Exam Module for additional exam [...] sheath fenestra tion (by Dr. Hughes at [facility] in 2006) and s/p multiple lumboperitoneal shunt [...] Dr. Lux. Mo Hood MD Resident Physician [facility] [place], PGY-2 [facility] Physician: Mo Hood MD, 03/26/2013 documented [...]
--- OUTSIDE RECORDS SUMMARY | ~2020-05-29 | XMS | Encounter Summary ---
Demographics + + + | Address | [address] | | | [place] [address] | + + + | Home Phone [...] + + + | Author | [place] [employer] [facility] | + + + | Organization | [facility] [employer] Science [facility] | + + + | Address | Unknown | + + + | Phone | Unavailable | + + + Support + + +---------+ + | Name | Relationship | Address | Phone | + + +---------+ + | Ruby Au | ECON | Unknown | | + + +---------+ + Care Team Providers + +------+ + | Care Manufacturing Tech Name | Role | Phone | [...] [address] | [address] | hospital bed ) | | | | Physician's | [place], [place] | | | | | Pavilion, 2nd floor | [address] | | | | | [place], [place] | [phone] | | | | | [address] | | | | | | [phone] | | | +--------+ + + + [...]
--- OUTSIDE RECORDS SUMMARY | ~2020-05-29 | XMS | Encounter Summary ---
Demographics + + + | Address | [address] | | | [place] [address] | + + + | Home Phone [...] + + + | Author | [place] [employer] [facility] | + + + | Organization | [facility] [employer] [facility] | + + + | Address | Unknown | + + + | Phone | Unavailable | + + + Support + + +---------+ + | Name | Relationship | Address | Phone | + + +---------+ + | Ruby Au | ECON | Unknown | | + + +---------+ + Care Team Providers + +------+ + | Care Franchise Sales Representative Name | Role | Phone [...] [address] | | | | | [facility] | [place], [place] | | | | | [place], [place] | [address] | | | | | [address] | [phone] | | | | | [phone] | | | +--------+ + + + [...]
--- OUTSIDE RECORDS SUMMARY | ~2020-05-29 | XMS | Encounter Summary ---
Demographics + + + | Address | [address] | | | [place] [address] | + + + | Home Phone [...] + + + | Author | [place] [employer] Science [facility] | + + + | Organization | [facility] [employer] Science [facility] | + + + | Address | Unknown | + + + | Phone | Unavailable | + + + Support + + +---------+ + | Name | Relationship | Address | Phone | + + +---------+ + | Ruby Au | ECON | Unknown | | + + +---------+ + Care Team Providers + +------+ + | Care Data Deliverables Manager Name | Role | Phone | [...] | Visit | Medicine Clinic at | WHEAT INSPECTOR [address] [facility] | Pre-Operative | | | | [facility] 4th Floor [address] | Examination (Primary | | | | [address] | [place], [place] | Dx); Pseudotumor | | | | Mailcode: CH4S | [address] | Cerebri; Encounter | | | | [facility] | [phone] | for Long-Term | | | | and Healing, | | (Current) Use of | | | | Building 1,4th Floor | | Anticoagulants | | | | [place], [place] | | | | | | [address] | | | | | | [phone] | | | +--------+---------+ + + + [...] Scanned [facility],[address] [place] [address] documented in this encou nter Plan of Treatment + + +--------+ + + | Name | Type | Priori | Associated Diagnoses | Order Schedule | | | | ty | | | + + +--------+ + + | NV COLLECTION VENOUS | Procedures | Routin | [...] | + + + + + | [facility] DEPARTMENT OF | [address] | [place] [address] | | | PATHOLOGY | [address] | | | + + + + + | [facility] DEPARTMENT OF | [address] | [place] [address] | | | PATHOLOGY | [address] [...] | + + + + + | [facility] | [address] | [place] [address] | | | PATHOLOGY | [address] | | | + + + + + | [facility] | [address] | [place] [address] | | | PATHOLOGY | [address] [...] | + + + + + | [facility] | [address] | [place] [address] | | | PATHOLOGY | [address] | | | + + + + + | [facility] | [address] | [place] [address] | | | PATHOLOGY | [address] [...] | + + + + + | [facility] | [address] | [place] [address] | | | PATHOLOGY | [address] | | | + + + + + | [facility] | [address] [place] [address] | [place] [address] | | | PATHOLOGY | [address] [...] Performed At | + + + | [id number] Estimated GFR > 60 mL/min/1.73 sq m if non- | [facility] | | Taiwanese [id number] Estimated GFR > 60 mL/min/1.73 sq m if | DEPARTMENT OF | | [place]ese GFR is estimated using the MDRD equation [...] | + + + + + | [facility] DEPARTMENT OF | [address] | [place] [address] | | | PATHOLOGY | [address] | | | + + + + + | [facility] DEPARTMENT OF | [address] | [place] [address] | | | PATHOLOGY | [address] [...] | + + + + + | [facility] DEPARTMENT OF | [address] | [place] [address] | | | PATHOLOGY | [address] | | | + + + + + | [facility] | [address] | [place] [address] | | | PATHOLOGY | [address] | | | + + + + + documented in this encounter Visit Diagnoses + + | Diagnosis | + + | Other specified pre-operative examination - Primary | + + | Pseudotumor cerebri Benign intracranial hypertension | + + | exterminator (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
--- OUTSIDE RECORDS SUMMARY | ~2020-05-29 | XMS | Encounter Summary ---
Demographics + + + | Address | [address] | | | [place] [address] | + + + | Home Phone [...] + + + | Author | [place] [employer] Science [facility] | + + + | Organization | [facility] [...] Providers + +------+ + | Care Neurology Director Name | Role | Phone | [...] Cerebri | | 2006 | Visit | [facility] at | Bud Alexander MD [address] | (Primary Dx) | | | | [facility] [address] | [address] | | | | | [address] | [place], [place] | | | | | Eye [place], [facility] | [address] | | | | | [place], [place] | [phone] | | | | | [address] | [...]
--- OUTSIDE RECORDS SUMMARY | ~2020-05-29 | XMS | Encounter Summary ---
Demographics + + + | Address | [address] | | | [place] [address] | + + + | Home Phone [...] + + + | Author | [place] [employer] Science [facility] | + + + | Organization | [facility] [employer]bag Science [facility] | + + + | Address | Unknown | + + + | Phone | Unavailable | + + + Support + + +---------+ + | Name | Relationship | Address | Phone | + + +---------+ + | Ruby Au | ECON | Unknown | | + + +---------+ + Care Team Providers + +------+ + | Care Property Claims Adjuster Name | Role | Phone | + [...] | | | Ave Mailcode: CH8N | [place], [place] | | | | | [facility] | [address] | | | | | and Healing, | [phone] | | | | | [facility] | | | | | | Floor [place], [place] | | | | | | [address] | | | | | | [phone] | | | +--------+--------+ + + + [...]
--- OUTSIDE RECORDS SUMMARY | ~2020-05-29 | XMS | Encounter Summary ---
Demographics + + + | Address | [address] | | | [place] [address] | + + + | Home Phone [...] + + + | Author | [place] [employer] [facility] | + + + | Organization | [facility] | + + [...] Providers + +------+ + | Care Heel Sorter Name | Role | Phone | + [...] Kirk | | | | | [facility] | [place], [place] | | | | | Health and Healing, | [address] | | | | | Building [address], [address]th | | | | | | Floor [place], [place] | | | | | | [address] | | | | | | [phone] | | | +--------+ + + + [...]
--- OUTSIDE RECORDS SUMMARY | ~2020-05-29 | XMS | Encounter Summary ---
Demographics + + + | Address | [address] | | | [place] [address] | + + + | Home Phone [...] + + + | Author | [place] [facility] | + + + | Organization | [facility] [...] Team Providers + +------+ + | Care Logging Tractor Operator Name | Role | Phone | [...] [address] | | | | | | [place], [place] | | | | | | [address] | | | +--------+ + + + [...]
--- OUTSIDE RECORDS SUMMARY | ~2020-05-29 | XMS | Encounter Summary ---
Demographics + + + | Address | [address] | | | [place] [address] | + + + | Home Phone | | + + + | Preferred Language | Unknown | + + + | Marital Status | | + + + | Latter Day Affiliation | Unknown | + + + | Race | Unknown | + + + | Ethnic Group | Unknown | + + + Author + + + | Author | [facility] | | | and [place] | + + + | Organization | [facility] | | | and [facility] | + + + | Address | Unknown | + + + | Phone | Unavailable | + + + Support + + +---------+ + | Name | Relationship | Address | Phone | + + +---------+ + | Saad Chamorro | ECON | Unknown | | + + +---------+ + Care Team Providers + +------+ + | Care Auto Vinyl Top Installer Name | Role | Phone | [...] | | [place] | [place] [address] | | | | | [address] | | | | | | [phone] | | | +--------+ + + + [...]
--- OUTSIDE RECORDS SUMMARY | ~2020-05-29 | XMS | Encounter Summary ---
Demographics + + + | Address | [address] | | | [place] [address] | + + + | Home Phone [...] + | Organization | [facility] | | [...] Team Providers + +------+ + | Care Literary Writer Name | Role | Phone | + +------+ + PCP | Unavailable | + +------+ + Encounter Details +--------+ + + + + | Date | Type | Department | Care Team | Description | +--------+ + + + + | 05/18/ | Hospital | [facility] | | | | 1991 | Encounter | MED [facility] | | | | | | [facility] [address] | | | | | | [place], | | | | | | [place] [address] | | | | | | [phone] | | | +--------+ + + + [...]
--- OUTSIDE RECORDS SUMMARY | ~2020-05-29 | XMS | Encounter Summary ---
Demographics + + + | Address | [address] | | | [place] [address] | + + + | Home Phone [...] + + + | Author | [place] [employer] [facility] | + + + | Organization | [facility] | + + + | Address | Unknown | + + + | Phone | Unavailable | + + + Support + + +---------+ + | Name | Relationship | Address | Phone | + + +---------+ + | Ruby Au | ECON | Unknown | | + + +---------+ + Care Team Providers + +------+ + | Care Presser Machine Name | Role | Phone | [...] | | | | | [facility] | [place], [place] | | | | | Health and Healing, | [address] | | | | | Building [address] | | | | | | Floor [place], [place] | | | | | | [address] | | | | | | [phone] | | | +--------+ + + + [...]
--- OUTSIDE RECORDS SUMMARY | ~2020-05-29 | XMS | Encounter Summary ---
Demographics + + + | Address | [address] | | | [place] [address] | + + + | Home Phone [...] + + + | Author | [place] [employer] [facility] | + + + | Organization | [facility] [employer] [facility] | + [...] Team Providers + +------+ + | Care Watch Technician Name | Role | Phone | [...] | | Ave Mailcode: CH8N | [place], [place] | | | | | [facility] | [address] | | | | | and Healing, | [phone] | | | | | [facility] | | | | | | Floor [facility] [place] | | | | | | [address] | | | | | | [phone] | | | +--------+---------+ + + + [...]
--- OUTSIDE RECORDS SUMMARY | ~2020-05-29 | XMS | Encounter Summary ---
Demographics + + + | Address | [address] | | | [place] [address] | + + + | Home Phone [...] + + + | Author | [place] [employer] [facility] | + + + | Organization | [facility] [employer] [facility] | + [...] Team Providers + +------+ + | Care Margarine Maker Name | Role | Phone | [...] | | | Ave Mailcode: CH8N | [place], [place] | | | | | [facility] | [address] | | | | | and Healing, | [phone] | | | | | [facility] | | | | | | Floor [place], [place] | | | | | | [address] | | | | | | [phone] | | | +--------+ + + + [...]
--- OUTSIDE RECORDS SUMMARY | ~2020-05-29 | XMS | Encounter Summary ---
Demographics + + + | Address | [address] | | | [place] [address] | + + + | Home Phone [...] + + + | Author | [place] [employer] [facility] | + + + | Organization | [facility] [employer] [facility] | + [...] Team Providers + +------+ + | Care Physics Technician Name | Role | Phone | [...] | | | REFERRAL TO | | [place], [place] | | | | | NEUROINTERVE | | [address] | | | | | NTIONAL | | Phone: | | | | | RADIOLOGY | | [phone] | | | | | PRACTICE | | Fax: | | | | | | | [phone] | +--------+--------+ + + + + Reason [...] Dx) | | | | Mailcode:OP14B | [place], [place] | | | | | Outpatient Clinic | [address] | | | | | Building [place], | [phone] | | | | | [place] [address] | | | | | | [phone] | | | +--------+---------+ + + + [...] resident s note. CASIMIRO PAYTON MD NEUROSURGERY [facility] [place] [address] Pascual Ballard - 12:00 PM [...] spots" and "tunnel vision." Last saw an plant operator helper in [facility] 2 months ago. Reportedl y, this showed that her OS vision was worse - no reports available to me at this time. Was a lso admitted to the [facility] for CAPONE about a month ago. [...] Patient was also given a prescription for [place] for CAPONE until she establishs care with [...]
--- OUTSIDE RECORDS SUMMARY | ~2020-05-29 | XMS | Encounter Summary ---
Demographics + + + | Address | [address] | | | [place] [address] | + + + | Home Phone [...] + + + | Organization | and [facility] | | | and [...] Providers + +------+ + | Care Sewing Pattern Layout Technician Name | Role | Phone | + +------+ + PCP | Unavailable | + +------+ + Encounter Details +--------+ + + + + | Date | Type | Department | Care Team | Description | +--------+ + + + + | 10/29/ | Hospital | [facility] | | | | 1991 | Encounter | MED CTR EMERGENCY | | | | | | CENTER [address] | | | | | | [place] | | | | | | [address] | | | | | | [phone] | | | +--------+ + + + [...]
--- OUTSIDE RECORDS SUMMARY | ~2020-05-29 | XMS | Encounter Summary ---
Demographics + + + | Address | [address] | | | [place] [address] | + + + | Home Phone [...] | Organization | [facility] | | | [...] Team Providers + +------+ + | Care Peer Health Promoter Name | Role | Phone | + +------+ + PCP | Unavailable | + +------+ + Encounter Details +--------+ + + + + | Date | Type | Department | Care Team | Description | +--------+ + + + + | 04/24/ | Hospital | [facility] | | | | 1991 | Encounter | MED CTR EMERGENCY | | | | | | CENTER [address] | | | | | | [place] | | | | | | [address] | | | | | | [phone] | | | +--------+ + + + [...]
--- OUTSIDE RECORDS SUMMARY | ~2020-05-29 | XMS | Encounter Summary ---
Demographics + + + | Address | [address] | | | [place] [address] | + + + | Home Phone [...] + + + | Author | [place] [employer]it [facility] | + + + | Organization | [facility] [employer] [facility] | + [...] Team Providers + +------+ + | Care Crop Roller Name | Role | Phone | + +------+ + | Yeison Simms MD | PCP | Unavailable | + +------+ + Encounter Details +--------+ + + + + | Date | Type | Department | Care Team | Description | +--------+ + + + + | 04/06/ | Telephone | Neurosurgery at | [place], | | | 2010 | | [facility] [address] | [address] | | | | | [address] Mailcode: CH8N | [address] [facility] | | | | | [facility] | [address] [place], [place] | | | | | and Healing, | [address] | | | | | Building | [phone] | | | | | Floor [place], [place] | | | | | | [address] | | | | | | [phone] | | | +--------+ + + + [...]
--- OUTSIDE RECORDS SUMMARY | ~2020-05-29 | XMS | Encounter Summary ---
Demographics + + + | Address | [address] | | | [place] [address] | + + + | Home Phone [...] + + + | Author | [place] [employer] [facility] | + + + | Organization | [facility] [employer] [facility] | + [...] Providers + +------+ + | Care Warehouse Production Worker Name | Role | Phone [...] Kirk | | | | | CH[facility]N [facility] | [place], [place] | | | | | Health and Healing, | [address] | | | | | Building [address]th | | | | | | Floor [place], [place] | | | | | | [address] | | | | | | [phone] | | | +--------+ + + + [...]
--- OUTSIDE RECORDS SUMMARY | ~2020-05-29 | XMS | Encounter Summary ---
Demographics + + + | Address | [address] | | | [place] [address] | + + + | Home Phone [...] + + + | Author | [place] [employer] [facility] | + + + | Organization | [facility] [employer] [facility] | + [...] Team Providers + +------+ + | Care Carpet Or Rug Layer Helper Name | Role | Phone | [...] Kirk | | | | | CH8N [facility] | [place], [place] | | | | | Health and Healing, | [address] | | | | | Building [address] | | | | | | Floor [place], [place] | | | | | | [address] | | | | | | [phone] | | | +--------+ + + + [...]
--- OUTSIDE RECORDS SUMMARY | ~2020-05-29 | XMS | Encounter Summary ---
Demographics + + + | Address | [address] | | | [place] [address] | + + + | Home Phone [...] + + + | Author | [place] Mammot[employer] [facility] | + + + | Organization | [facility] [email or web address] [facility] | + + + | Address | Unknown | + + + | Phone | Unavailable | + + + Support + + +---------+ + | Name | Relationship | Address | Phone | + + +---------+ + | Ruby Au | ECON | Unknown | | + + +---------+ + Care Team Providers + +------+ + | Care Bricklayer Paving Brick Name | Role | Phone | + [...] | | | | [address] | [facility], | | | | | | [place], [place] | 10th Floor | | | | | | [address] | [place], [place] | | | | | | Phone: | [address] | | | | | | [phone] | Phone: | | | | | | Fax: | [phone] | | | | | | [phone] | Fax: | | | | | | | [phone] | +--------+--------+ + + + + Reason [...] Sky Maloney | | | | | [facility] | [place], [place] | | | | | [place], [place] | [address] | | | | | [address] | [phone] | | | | | [phone] | | | | | | | [...] the irma aviva. Thanks for coming to [facility] today. Your head CT was negative for any new findings. The neurosurgeon did not think there was a malfunction in your shunt. The sales recruitment specialist recommends you taking Diomox again and follow up in 1 week at [facility]. Please follow up with your doctor. Rest, [...] + + + | [facility] | [address] | [place], [place] | | | [facility] | [address] | [address] | | | TESTS | | | [...] + + + + + | [facility] | [address] | [place] [address] | | | SERVICES, CORE | SKY [...] | | | | | CHRISTIANO TORRES ([id number]) | | | | | | on 03/14/2013 10:35:55 AM | | | | + + + + + + + + | Specimen | + + | | + + + + + | Narrative | Performed At | + + + | Please click | [facility] | | on view image for the detailed interpretation from [employer] results. | CARDIOLOGY | + + + + + + + + | Performing | Address | City/State/Zipcode | Phone Number | | Organization | | | | + + + + + | [facility] | [address] | [place], [place] | | | CARDIOLOGY | [address] | [address] | | + + + + + [...] [facility] | [address] | [place], [place] | | | [facility] GRIFF[facility] OF CARE | [facility] | [address] | | | TESTS | | | [...] [facility] | [address] | [place] [address] | | | SERVICES, CORE | PARK [...] | + + + + + | [facility] | [address] [facility] | [place] [address] | | | SERVICES, CORE | SKY [...] | | | LABORATORY | | | GABONESE | | | SERVICES, | | | [...] [facility] | [address] | [place] [address] | | | SERVICES, CORE | PARK [...] | + + + + + | [facility] | [address] | [place] [address] | | | SERVICES, CORE | SKY [...] + | [place] - AIRPORT - | [address] | [place] [address] | | | [place] | | | | + + + + + RAINBOW HOLD TUBE - RED TOP (03/13/2013 11:52 AM PDT) + + | Specimen | + + | Blood - Blood | + + + + + + + | Performing | Address | City/State/Zipcode | Phone Number | | Organization | | | | + + + + + | [facility] | [address] [facility] | [place] [address] | | | SERVICES, CORE | SKY [...]
--- OUTSIDE RECORDS SUMMARY | ~2020-05-29 | XMS | Encounter Summary ---
Demographics + + + | Address | [address] | | | [place] [address] | + + + | Home Phone [...] Organization | [facility] | | [...] Team Providers + +------+ + | Care Mortgage Loan Funder Name | Role | Phone | + +------+ + PCP | Unavailable | + +------+ + Encounter Details +--------+ + + + + | Date | Type | Department | Care Team | Description | +--------+ + + + + | 07/07/ | Hospital | [facility] | | | | 1991 | Encounter | MED CTR EMERGENCY | | | | | | CENTER [address] | | | | | | [place] | | | | | | [address] | | | | | | [phone] | | | +--------+ + + + [...]
--- OUTSIDE RECORDS SUMMARY | ~2020-05-29 | XMS | Encounter Summary ---
Demographics + + + | Address | [address] | | | [place] [address] | + + + | Home Phone [...] + + + | Author | [place] [employer] [facility] | + + + | Organization | [facility] [employer] [facility] | + [...] Providers + +------+ + | Care Senior Technical Support Engineer Name | Role | Phone | [...] | | | Ave Mailcode: CH8N | [place], [place] | | | | | [facility] | [address] | | | | | and Healing, | [phone] | | | | | | | | | | | Floor [place], [place] | | | | | | [address] | | | | | | [phone] | | | +--------+ + + + [...]
--- OUTSIDE RECORDS SUMMARY | ~2020-05-29 | XMS | Encounter Summary ---
Demographics + + + | Address | [address] | | | [place] [address] | + + + | Home Phone [...] + + + | Author | [place] DrAvailable Science [facility] | + + + | Organization | [facility] [employer]ody [facility] | [...] Providers + +------+ + | Care Fuel Assembler Name | Role | Phone | [...] | Headache | | 2005 | | [place]/Ophthalmol | MD Jordin | | | | | leon at [facility] [address] | | | | | | [address] [place] Mailcode: | | | | | | CH[address]P [facility] | | | | | | Health and Healing, | | | | | | Building | | | | | | Floor [place], [place] | | | | | | [address] | | | | | | [phone] | | | +--------+ + + + [...]
--- OUTSIDE RECORDS SUMMARY | ~2020-05-29 | XMS | Encounter Summary ---
Demographics + + + | Address | [address] | | | [place] [address] | + + + | Home Phone [...] + + + | Author | [place] Tellybean Science [facility] | + + + | Organization | [facility] Fulcrum SP Materials Science [facility] | + [...] Team Providers + +------+ + | Care High Lift Mule Operator Name | Role | Phone | [...] Cerebri | | 2006 | Visit | [place] | | | | | | Photography at | | | | | | [address] | | | | | | [address] | | | | | | [facility] [place], 4th | | | | | | floor [place], [place] | | | | | | [address] | | | +--------+---------+ + + + [...] PM DINOAnnabella Au was seen in the [facility] [place] Photography/Ultrasound Department today, 11/30/2006, for ultrasound OU [...]
--- OUTSIDE RECORDS SUMMARY | ~2020-05-29 | XMS | Encounter Summary ---
Demographics + + + | Address | [address] | | | [place] [address] | + + + | Home Phone [...] + + + | Author | [place] MemBlaze Science [facility] | + + + | Organization | [facility] Cymbet Science [facility] | + [...] Team Providers + +------+ + | Care Cable Tool Operator Name | Role | Phone | + +------+ + | Yeison Simms MD | PCP | Unavailable | + +------+ + Reason for Visit + + + | Reason | Comments | + + + | Refill Request | refill on [place] | + + + Encounter Details +--------+--------+ + + + | Date | Type | Department | Care Team | Description | +--------+--------+ + + + | 08/27/ | Refill | Neurosurgery at | Sam Pedroza MD | Refill Request | | 2007 | | [facility] [address] | [address] | (refill on [place]) | | | | Ave Mailcode: CH8N | [place], [place] | | | | | [facility] | [address] | | | | | and Healing, | [phone] | | | | | [facility] | | | | | | Floor [place], [place] | | | | | | [address] | | | | | | [phone] | | | +--------+--------+ + + + [...]
--- OUTSIDE RECORDS SUMMARY | ~2020-05-29 | XMS | Encounter Summary ---
Demographics + + + | Address | [address] | | | [place] [address] | + + + | Home Phone [...] + + + | Author | [place] Shaanxi Join Innovation Technology Science [facility] | + + + | Organization | [facility] Cerenis Therapeutics Science [facility] | + + + | Address | Unknown | + + + | Phone | Unavailable | + + + Support + + +---------+ + | Name | Relationship | Address | Phone | + + +---------+ + | Ruby Au | ECON | Unknown | | + + +---------+ + Care Team Providers + +------+ + | Care Print Line Tailer Name | Role | Phone | + [...] | | | Ave Mailcode: CH8N | [place], [place] | | | | | [facility] | [address] | | | | | and Healing, | [phone] | | | | | [facility] | | | | | | Floor [place], [place] | | | | | | [address] | | | | | | [phone] | | | +--------+ + + + [...]
--- OUTSIDE RECORDS SUMMARY | ~2020-05-29 | XMS | Encounter Summary ---
Demographics + + + | Address | [address] | | | [place] [address] | + + + | Home Phone [...] + + + | Author | [place] Lexar Media Science [facility] | + + + | Organization | [facility] BrightView Systems Science [facility] | + [...] Team Providers + +------+ + | Care Winding Department Supervisor Name | Role | Phone | + +------+ + | Yeison Simsm MD | PCP | Unavailable | + [...] | | | Ave Mailcode: CH8N | [place], [place] | | | | | [facility] | [address] | | | | | and Healing, | [phone] | | | | | [facility] | | | | | | Floor [place], [place] | | | | | | [address] | | | | | | [phone] | | | +--------+ + + + [...]
--- OUTSIDE RECORDS SUMMARY | ~2020-05-29 | XMS | Encounter Summary ---
Demographics + + + | Address | [address] | | | [place] [address] | + + + | Home Phone [...] + + + | Author | [place] Modanisa Science [facility] | + + + | Organization | [facility] IFMR Rural Channels and Services Science [facility] [...] Team Providers + +------+ + | Care Piped Pocket Machine Operator Name | Role | Phone [...] | | | Ave Mailcode: CH8N | [place], [place] | | | | | [facility] | [address] | | | | | and Healing, | [phone] | | | | | [facility] | | | | | | Floor [place], [place] | | | | | | [address] | | | | | | [phone] | | | +--------+--------+ + + + [...]
--- OUTSIDE RECORDS SUMMARY | ~2020-05-29 | XMS | Encounter Summary ---
Demographics + + + | Address | [address] | | | [place] [address] | + + + | Home Phone [...] + + | Author | [place] DoubleRecall Science [facility] | + + + | Organization | [facility] | + [...] Team Providers + +------+ + | Care Three Knife Trimmer Name | Role | Phone | + [...] [address] | | | | | [facility] | [place], [place] | | | | | [place], [place] | [address] | | | | | [address] | [phone] | | | | | [phone] | | | +--------+ + + + [...]
--- OUTSIDE RECORDS SUMMARY | ~2020-05-29 | XMS | Encounter Summary ---
Demographics + + + | Address | [address] | | | [place] [address] | + + + | Home Phone [...] + + | Author | [place] uShip Science [facility] | + + + | Organization | [facility] AquaBlok Science [facility] | + + + | Address | Unknown | + + + | Phone | Unavailable | + + + Support + + +---------+ + | Name | Relationship | Address | Phone | + + +---------+ + | Ruby Au | ECON | Unknown | | + + +---------+ + Care Team Providers + +------+ + | Care Airplane Electrical Repairer Name | Role | Phone | [...] | | | | | | [address] [place], [place] | | | | | | [address] | | | | | | [phone] | | | +--------+ + + + [...]
--- OUTSIDE RECORDS SUMMARY | ~2020-05-29 | XMS | Encounter Summary ---
Demographics + + + | Address | [address] | | | [place] [address] | + + + | Home Phone [...] + + + | Author | [place] RoomiePics Science [facility] | + + + | Organization | [facility] LatamLeap Science [facility] | + + + | Address | Unknown | + + + | Phone | Unavailable | + + + Support + + +---------+ + | Name | Relationship | Address | Phone | + + +---------+ + | Ruby Au | ECON | Unknown | | + + +---------+ + Care Team Providers + +------+ + | Care Pool Lifeguard Name | Role | Phone | + [...] | | | Ave Mailcode: CH8N | [place], [place] | | | | | [facility] | [address] | | | | | and [facility], | [phone] | | | | | [facility] | | | | | | Floor [place], [place] | | | | | | [address] | | | | | | [phone] | | | +--------+ + + + [...]
--- OUTSIDE RECORDS SUMMARY | ~2020-05-29 | XMS | Encounter Summary ---
Demographics + + + | Address | [address] | | | [place] [address] | + + + | Home Phone [...] + + + | Author | [place] Buzzwire Science [facility] | + + + | Organization | [facility] Sharewire Science [facility] [...] Providers + +------+ + | Care Human Factors Advisor Lead Name | Role | Phone | [...] Erroneous Encounter | | 2007 | | [place] for [facility] | [place] [facility] | - Disregard | | | | and Healing [address] | Neurosurgery [address] | | | | | [address] Mailcode: | [address] | | | | | CH8N Center for | [place], [place] | | | | | Health and Healing, | [address] | | | | | Building [address]th | | | | | | Floor [place], [place] | | | | | | [address] | | | | | | [phone] | | | +--------+ + + + [...]
--- OUTSIDE RECORDS SUMMARY | ~2020-05-29 | XMS | Encounter Summary ---
Demographics + + + | Address | [address] | | | [place] [address] | + + + | Home Phone [...] + + + | Author | [place] DJZ Science [facility] | + + + | Organization | [facility] TierPM Science [facility] [...] Team Providers + +------+ + | Care Water Truck Driver Name | Role | Phone [...] MD | | | 2010 | | [place]/Ophthalmol | | | | | | leon at [facility] [address] | | | | | | [address] Mailcode: | | | | | | CH11P Center for | | | | | | Health and Healing, | | | | | | [facility] | | | | | | Floor [place], [place] | | | | | | [address] | | | | | | [phone] | | | +--------+ + + + [...]
--- OUTSIDE RECORDS SUMMARY | ~2020-05-29 | XMS | Encounter Summary ---
Demographics + + + | Address | [address] | | | [place] [address] | + + + | Home Phone [...] + + + | Author | [place] [employer] [facility] | + + + | Organization | [facility] [employer] [facility] | + [...] Team Providers + +------+ + | Care Sanding Machine Operator Or Tender Name | Role | Phone | [...] | | | | [address] Mailcode:OP14B | [place], | | | | | [place] | [place] [address] | | | | | [place], [place] | | | | | | [address] | | | | | | [phone] | | | +--------+ + + + [...]
--- OUTSIDE RECORDS SUMMARY | ~2020-05-29 | XMS | Encounter Summary ---
Demographics + + + | Address | [address] | | | [place] [address] | + + + | Home Phone | | + + + | Preferred Language | Unknown | + + + | Marital Status | | + + + | Amish Affiliation | Unknown | + + + | Race | Unknown | + + + | Ethnic Group | Unknown | + + + Author + + + | Author | [facility] | | | and [place] | + + + | Organization | [facility] | [...] + +------+ + | Care Medical Imaging Director Name | Role | Phone | + +------+ + PCP | Unavailable | + +------+ + Encounter Details +--------+ + + + + | Date | Type | Department | Care Team | Description | +--------+ + + + + | 10/22/ | Hospital | [facility] | | | | 1991 - | Encounter | [facility] | | | | | | [facility] [address] | | | | 10/24/ | | [place], | | | | 1991 | | [place] [address] | | | | | | [phone] | | | +--------+ + + + [...]
--- OUTSIDE RECORDS SUMMARY | ~2020-05-29 | XMS | Encounter Summary ---
Demographics + + + | Address | [address] | | | [place] [address] | + + + | Home Phone [...] + + + | Author | [place] [facility] [employer] [facility] | + + + | Organization | [facility] [employer] Science [facility] [...] Providers + +------+ + | Care Security Analyst Name | Role | Phone | [...] | Prescription | | 2012 | | [place]/Ophthalmol | MD Perry | | | | | leon at [facility] [address] | | | | | | Gianluca Kirk Mailcode: | | | | | | CH11P [facility] | | | | | | Health and [facility], | | | | | | Building | | | | | | [place], [place] | | | | | | [address] | | | | | | [phone] | | | +--------+ + + + [...]
--- OUTSIDE RECORDS SUMMARY | ~2020-05-29 | XMS | Encounter Summary ---
Demographics + + + | Address | [address] | | | [place] [address] | + + + | Home Phone [...] + + + | Author | [place] [employer] [facility] | + + + | Organization | [facility] [employer] [facility] | + [...] + +------+ + | Care Sales Operations Assistant Name | Role | Phone | + +------+ + | Brenden Benavides MD | PCP | | + +------+ + Encounter Details +--------+ + + + + | Date | Type | Department | Care Team | Description | +--------+ + + + + | 02/22/ | Telephone | [facility] | Hay Hughes MD [address] | | | 2006 | | [place] | [address] | | | | | Oculoplastics at | [place], [place] | | | | | [address] | [address] | | | | | [address] | [phone] | | | | | [facility] [place] | | | | | | [address] | | | | | | [place] [address] | | | | | | [phone] | | | +--------+ + + + [...]
--- OUTSIDE RECORDS SUMMARY | ~2020-05-29 | XMS | Encounter Summary ---
Demographics + + + | Address | [address] | | | [place] [address] | + + + | Home Phone [...] + + + | Author | [place] [employer] [facility] | + + + | Organization | [facility] [employer] [facility] | + + + | Address | Unknown | + + + | Phone | Unavailable | + + + Support + + +---------+ + | Name | Relationship | Address | Phone | + + +---------+ + | Ruby Au | ECON | Unknown | | + + +---------+ + Care Team Providers + +------+ + | Care Paper Novelty Maker Name | Role | Phone | [...] Cerebri | | 2006 | Visit | [place] | | (Primary Dx) | | | | Neuro-Ophthalmology | | | | | | [address] [facility] | | | | | | Mailcode: PATTI | | | | | | [place] [address] | | | | | | [phone] | | | +--------+---------+ + + + [...] documented as of this encounter Progress Notes SuccessBrad - 11/30/2006 11:58 AM PSTFormatting of this [...] Brad Currie MD Neuro-Ophthalmology and Cerebrovascular Disease Exchange Specialist of Ophthalmology, Neurology, and Neurosurgery documented in [...]
--- OUTSIDE RECORDS SUMMARY | ~2020-05-29 | XMS | Encounter Summary ---
Demographics + + + | Address | [address] | | | [place] [address] | + + + | Home Phone [...] + + + | Author | [place] [employer] [facility] | + + + | Organization | [facility] [employer] [facility] | + + [...] Providers + +------+ + | Care Senior Treasury Analyst Name | Role | Phone | [...] | | | | | Physician's | [place], [place] | | | | | [place], [facility] floor | [address] | | | | | [place], [place] | [phone] | | | | | [address] | | | | | | [phone] | | | +--------+ + + + [...]
--- OUTSIDE RECORDS SUMMARY | ~2020-05-29 | XMS | Encounter Summary ---
Demographics + + + | Address | [address] | | | [place] [address] | + + + | Home Phone [...] + + + | Author | [place] [employer] [facility] | + + + | Organization | [facility] [employer]eng[employer] [facility] [...] Providers + +------+ + | Care Energy Assistant Name | Role | Phone | [...] | | [place] Mailcode:OP14B | [place], | | | | | [facility] | [place] [address] | | | | | [place], [place] | | | | | | [address] | | | | | | [phone] | | | +--------+ + + + [...]
--- OUTSIDE RECORDS SUMMARY | ~2020-05-29 | XMS | Encounter Summary ---
Demographics + + + | Address | [address] | | | [place] [address] | + + + | Home Phone [...] + + + | Author | [place] [employer] [facility] | + + + | Organization | [facility] [employer] [facility] | + [...] Team Providers + +------+ + | Care Personal Injury Legal Assistant Name | Role | Phone | [...] | | | CH8N [facility] | [place], [place] | | | | | Health and Healing, | [address] | | | | | Building [address], [address]th | | | | | | Floor [place], [place] | | | | | | [address] | | | | | | [phone] | | | +--------+ + + + [...]
--- OUTSIDE RECORDS SUMMARY | ~2020-05-29 | XMS | Encounter Summary ---
Demographics + + + | Address | [address] | | | [place] [address] | + + + | Home Phone [...] + + + | Author | [place] [employer] [facility] | + + + | Organization | [facility] [employer] [facility] | + + + | Address | Unknown | + + + | Phone | Unavailable | + + + Support + + +---------+ + | Name | Relationship | Address | Phone | + + +---------+ + | Ruby Au | ECON | Unknown | | + + +---------+ + Care Team Providers + +------+ + | Care Green Marketing Analyst Name | Role | Phone | + +------+ + | Brenden Benavides MD | PCP | | + +------+ + Encounter Details +--------+ + + + + | Date | Type | Department | Care Team | Description | +--------+ + + + + | 02/23/ | Telephone | [facility] | Brad Currie MD | | | 2006 | | [place] | | | | | | Neuro-Ophthalmology | | | | | | [address] [facility] | | | | | | Mailcode: PATTI | | | | | | [place] [address] | | | | | | [phone] | | | +--------+ + + + [...]
--- OUTSIDE RECORDS SUMMARY | ~2020-05-29 | XMS | Encounter Summary ---
Demographics + + + | Address | [address] | | | [place] [address] | + + + | Home Phone [...] + + + | Author | [place] [employer] [facility] | + + + | Organization | [facility] | + + + | Address | Unknown | + + + | Phone | Unavailable | + + + Support + + +---------+ + | Name | Relationship | Address | Phone | + + +---------+ + | Ruby Au | ECON | Unknown | | + + +---------+ + Care Team Providers + +------+ + | Care Slot Machine Repairer Name | Role | Phone | [...] | | [place] Mailcode:OP14B | Sandra Maloney [place], | | | | | [facility] | [place] [address] | | | | | [place], [place] | | | | | | [address] | | | | | | [phone] | | | +--------+ + + + [...]
--- OUTSIDE RECORDS SUMMARY | ~2020-05-29 | XMS | Encounter Summary ---
Demographics + + + | Address | [address] | | | [place] [address] | + + + | Home Phone [...] + + + | Author | [place] [employer] [facility] | + + + | Organization | [facility] [employer] [facility] | + [...] Team Providers + +------+ + | Care Ad Operations Associate Name | Role | Phone | [...] | | | | | | | [place] | | | | | | | [id number] | | | | | | | [facility] | | | | | | | [place], | | | | | | | [place] [address] | | | | | | | Phone: | | | | | | | [phone] | +--------+--------+ + + + + Encounter Details +--------+ + + + + | Date | Type | Department | Care Team | Description | +--------+ + + + + | 08/01/ | Hospital | [facility] [address] | Sam Pedroza MD | | | 2007 - | Encounter | [place] | [address] | | | | | [id number] [facility] | [place], [place] | | | 08/02/ | | HOSPITAL [place], | [address] | | | 2007 | | [place] [address] | [phone] | | | | | [phone] | | | +--------+ + + + [...] in 2 weeks, please call for appointment: [phone] Condition On Discharge: Vital Signs at discharge [...] in 2 weeks, please call for appointment: [phone] Condition On Discharge: Vital Signs at discharge [...] independently, has no ADL needs and [facility] Dr. Pedroza agreed that she would not need therapies. Spoke with RN who endorses that pt has been up independently last pm and this am. OT to sign off at this time. Yessenia Nowak, OTR/ L 41766 Tomasz Caldera Md - 02/2008 11:08 AM [...] + +---------+ + + | [facility] DEPARTMENT OF | | | | | RADIOLOGY | | | | + +---------+ + + OPERATION RECORD (08/01/2008 12:00 AM PDT) + + + | Narrative | Performed At | + + + | [id number] | | | [id number] | | | [place] [id number] Date: | | | 08/01/2008 Attending Surgeon: | | | Sam Pedroza M.D. Small Business Sales Representative(s): | | | Tomasz Rice M.D. | [...] | tonsils and then gently incised. A Freeman 4 was then easily fed | | [...] | | | Pooja Pedroza M.D. / [id number] / | | | [id number] / [id number] / | | + + + + + | Procedure Note | + + | Krystal Rushing, Tomasz - 08/01/2008 12:00 AM PDT [id number] | | [id number] [place] | | [id number] Date: 08/01/2008 Attending Surgeon: Sam | | Pooja Pderoza Small Business Sales Representative(s): Tomasz Rice M.D. | | Palomo Jansen [...] tonsils and | | thengently incised. A Freeman 4 was then easily fed through it, [...] Sam Pedroza M.D. KG / | | [id number] / [id number] / [id number] / T: 08/02/2008 | |dripping from the [...] tonsils and then | |gently incised. A Freeman 4 was then easily fed through it, [...] | | | |KG / HS | |[id number] / [id number] / [id number] / | | | | | | | | | | | | | | | | | | | | | + + TEACHING PHYSICIAN (08/01/2008 12:00 AM PDT) + + + | Narrative | Performed At | + + + | [id number] | | | [id number] | | | [place] [id number] | | | Date: 08/01/2008 Attending Surgeon: | | | Sam Pedroza M.D. Small Business Sales Representative(s): | | | Tomasz Rice M.D. | [...] | | | Pooja Pedroza / LANETTE [id number] / [id number] / [id number] / [id number] D: | | | 08/01/2008 | | + + + + + | Procedure Note | + + | Sam Pedroza MD - 08/01/2008 12:00 AM PDT [id number] | | [id number] [place] | | [id number] Date: 08/01/2008ttending Surgeon: Sam | | Pooja Pedroza Small Business Sales Representative(s): Tomasz Rice M.D. | | Palomo Jansen [...] | Bisi. Sam Pedroza M.D. AD / [id number] / [id number] / [id number] / [id number]: | | 08/01/2008T: 08/01/2008 | | | [...] | | | |AD / HS | |[id number] / [id number] / 41447 / 74315 | | | | | | | [...]
--- OUTSIDE RECORDS SUMMARY | ~2020-05-29 | XMS | Encounter Summary ---
Demographics + + + | Address | [address] | | | [place] [address] | + + + | Home Phone [...] | Organization | [facility] | | | [...] Providers + +------+ + | Care Medical Consultant Name | Role | Phone | + +------+ + PCP | Unavailable | + +------+ + Encounter Details +--------+ + + + + | Date | Type | Department | Care Team | Description | +--------+ + + + + | 07/19/ | Hospital | [facility] | Vern Rooney, | | | 1990 - | Encounter | MED CTR MED ONC | [address] | | | | | [address] | [place] | | | 07/21/ | | [place] [address] | [address] | | | 1990 | | [phone] | | | +--------+ + + + [...]
--- OUTSIDE RECORDS SUMMARY | ~2020-05-29 | XMS | Encounter Summary ---
Demographics + + + | Address | [address] | | | [place] [address] | + + + | Home Phone [...] + + + | Author | [place] [employer] [facility] | + + + | Organization | [facility] [employer] [facility] | [...] Providers + +------+ + | Care Electrical Line Mechanic Name | Role | Phone | [...] ) | | | | Physician's | [place], [place] | | | | | Pavilion, 2nd floor | [address] | | | | | [place], [place] | [phone] | | | | | [address] | | | | | | [phone] | | | +--------+ + + + [...]
--- OUTSIDE RECORDS SUMMARY | ~2020-05-29 | XMS | Encounter Summary ---
Demographics + + + | Address | [address] | | | [place] [address] | + + + | Home Phone [...] + + + | Author | [place] [employer] [facility] | + + + | Organization | [facility] [employer] [facility] | [...] Team Providers + +------+ + | Care Transformer Assembly Supervisor Name | Role | Phone | [...] | | | | | cerebri | [address] | | | | | | Procedures | Ave | | | | | | CONSULT TO | [place], [place] | | | | | | [facility] | [address] | | | | | | | Phone: | | | | | | | [phone] | | | | | | | Fax: | | | | | | | [phone] | | +--------+--------+ + + + + [...] Cerebri | | 2005 | Visit | [facility] | [address] | (Primary Dx) | | | | Rd Mailcode:OP14B | [place], [place] | | | | | [facility] | [address] | | | | | [place], [place] | [phone] | | | | | [address] | | | | | | [phone] | | | +--------+---------+ + + + [...] pressu re. Referral to Dr. Maloney in [place] where a lumboperitoneal shunt was placed and subsequently explanted due to infection and migration of the catheter tip from the peritoneal space. She feels that her symptoms were helped at the time of the placement of the shunt; the head aches and visual problems have worsened since shunt removal. She has opted to come to [facility] rather than to return to [place] based on travel convenience. Review of Systems: [...] brain without; Neuro-ophthalmology consultation. [facility] Treatment Not on [...] | | + +---------+ + + | [facility] DEPARTMENT OF | | | | | RADIOLOGY | | | | + +---------+ + + documented in this encounter Visit Diagnoses + + | Diagnosis | + + | Pseudotumor cerebri - Primary Benign intracranial hypertension | + + documented in this encounter
--- OUTSIDE RECORDS SUMMARY | ~2020-05-29 | XMS | Encounter Summary ---
Demographics + + + | Address | [address] | | | [place] [address] | + + + | Home Phone [...] + + | Author | [place] [employer] [facility] | + + + | Organization | [facility] [facility] [...] Team Providers + +------+ + | Care Judge Name | Role | Phone | + [...] | | | Ave Mailcode: CH8N | [place], [place] | | | | | [facility] | [address] | | | | | and Healing, | [phone] | | | | | [facility] | | | | | | Floor [place], [place] | | | | | | [address] | | | | | | [phone] | | | +--------+ + + + [...]
--- OUTSIDE RECORDS SUMMARY | ~2020-05-29 | XMS | Encounter Summary ---
Demographics + + + | Address | [address] | | | [place] [address] | + + + | Home Phone [...] + + + | Author | [place] [employer] [facility] | + + + | Organization | [facility] [employer] [facility] | + + + | Address | Unknown | + + + | Phone | Unavailable | + + + Support + + +---------+ + | Name | Relationship | Address | Phone | + + +---------+ + | Ruby Au | ECON | Unknown | | + + +---------+ + Care Team Providers + +------+ + | Care Greensman Name | Role | Phone | + [...] Request (Pt | | 2006 | | [place] | [address] | requests more pain | | | | Oculoplastics at | [place], [place] | medication) | | | | [address] | [address] | | | | | [address] | [phone] | | | | | Eye [place] | | | | | | [facility] floor | | | | | | [place] [address] | | | | | | [phone] | | | +--------+--------+ + + + [...]
--- OUTSIDE RECORDS SUMMARY | ~2020-05-29 | XMS | Encounter Summary ---
Demographics + + + | Address | [address] | | | [place] [address] | + + + | Home Phone [...] + + + | Author | [place] [employer] [facility] | + + + | Organization | [facility] [employer] [facility] | + [...] Team Providers + +------+ + | Care Terminal Superintendent Name | Role | Phone | + [...] | | | Ave Mailcode: CH8N | [place], [place] | | | | | [facility] | [address] | | | | | and Healing, | [phone] | | | | | [facility] | | | | | | Floor [facility] [place] | | | | | | [address] | | | | | | [phone] | | | +--------+ + + + [...]
--- OUTSIDE RECORDS SUMMARY | ~2020-05-29 | XMS | Encounter Summary ---
Demographics + + + | Address | [address] | | | [place] [address] | + + + | Home Phone [...] + + + | Author | [place] [facility] | + + + | Organization | [facility] [employer] [facility] | + [...] Providers + +------+ + | Care Radio Repair Teacher Name | Role | Phone | [...] Refill Request | | 2007 | | [facility] | [place] | | | | | and Healing [address] | Neurosurgery [address] | | | | | [address] Mailcode: | [address] | | | | | CH8N [facility] | [place], [place] | | | | | Health and Healing, | [address] | | | | | Building | | | | | | Floor [place], [place] | | | | | | [address] | | | | | | [phone] | | | +--------+--------+ + + + [...]
--- OUTSIDE RECORDS SUMMARY | ~2020-05-29 | XMS | Clinical Summary ---
Demographics + + + | Address | [address] | | | [place] [address] | + + + | Home Phone [...] Team Providers + +------+ + | Care County Director Name | Role | Phone | + +------+ + | Dennis Maddox | PCP | | + +------+ + Source Comments [facility] is fully live on both [facility] and [facility] Allergies + + + [...] | | | + +--------+ +--------+-------+---------+--------+ | [employer] MED[employer] | [employer] | xxxxxxxx | 11/28/19 | | | [...] | 1975 | [phone] | [place] [address] | | | rene | | | 0 (Home) | | + +--------+ +--------+ + + Advance Directives + + + + + | Type | Date Recorded | Patient | Explanation | | | | Breaker Mechanic | | + + + + + | Advance | | | | | Directives and | | | | | Living Will | | | | + + + + + | Power of | | | | | Group Art Supervisor | | | | + + + [...]
--- OUTSIDE RECORDS SUMMARY | ~2020-05-29 | XMS | Encounter Summary ---
Demographics + + + | Address | [address] | | | [place] [address] | + + + | Home Phone [...] + + | Author | [place] [employer] [facility] | + + + | Organization | [facility] [employer] [facility] | [...] Team Providers + +------+ + | Care Layer Out Name | Role | Phone | + [...] Rd | | | | | | [place], [place] | | | | | | [address] | | | +--------+ + + + [...]
--- OUTSIDE RECORDS SUMMARY | ~2020-05-29 | XMS | Encounter Summary ---
Demographics + + + | Address | [address] | | | [place] [address] | + + + | Home Phone [...] + + + | Author | [place] [employer] [facility] | + + + | Organization | [facility] Includes [facility] [employer] [facility] | + + + | Address | Unknown | + + + | Phone | Unavailable | + + + Support + + +---------+ + | Name | Relationship | Address | Phone | + + +---------+ + | Ruby Au | ECON | Unknown | | + + +---------+ + Care Team Providers + +------+ + | Care Woods Overseer Name | Role | Phone | + [...] Cerebri | | 2005 | Visit | [place] | | (Primary Dx) | | | | Neuro-Ophthalmology | | | | | | [address] [facility] | | | | | | Mailcode: PATTI | | | | | | [place] [address] | | | | | | [phone] | | | +--------+---------+ + + + [...] Brad Currie MD Neuro-Ophthalmology and Cerebrovascular Disease Soa Engineer of Ophthalmology, Neurology, and Neurosurgery documented [...]
--- OUTSIDE RECORDS SUMMARY | ~2020-05-29 | XMS | Encounter Summary ---
Demographics + + + | Address | [address] | | | [place] [address] | + + + | Home Phone [...] + + + | Author | [place] [employer] [facility] | + + + | Organization | [facility] [employer] [facility] | + + [...] Providers + +------+ + | Care Medical Cash Poster Name | Role | Phone | + +------+ + | Brenden Benavides MD | PCP | | + +------+ + Encounter Details +--------+ + + + + | Date | Type | Department | Care Team | Description | +--------+ + + + + | 01/05/ | Telephone | [facility] | Brad Currie MD | | | 2006 | | [place] | | | | | | Neuro-Ophthalmology | | | | | | [address] [facility] | | | | | | Mailcode: PATTI | | | | | | [place] [address] | | | | | | [phone] | | | +--------+ + + + [...]
--- OUTSIDE RECORDS SUMMARY | ~2020-05-29 | XMS | Encounter Summary ---
Demographics + + + | Address | [address] | | | [place] [address] | + + + | Home Phone [...] + + + | Author | [place] [employer] [facility] | + + + | Organization | [facility] [employer] [facility] [...] Providers + +------+ + | Care Syrup Maker Name | Role | Phone | [...] Other | | 2005 | | [facility] | [place] [address] | | | | | [address] Mailcode:OP14B | [place], [place] | | | | | [facility] | [address] | | | | | [place], [place] | | | | | | [address] | | | | | | [phone] | | | +--------+ + + + [...]
--- OUTSIDE RECORDS SUMMARY | ~2020-05-29 | XMS | Encounter Summary ---
Demographics + + + | Address | [address] | | | [place] [address] | + + + | Home Phone | | + + + | Preferred Language | Unknown | + + + | Marital Status | | + + + | Lutheran Affiliation | Unknown | + + + | Race | Unknown | + + + | Ethnic Group | Unknown | + + + Author + + + | Author | [facility] | | | and [place] | + + + | Organization | [facility] | | | and [place] [...] Team Providers + +------+ + | Care Events And Promotions Assistant Name | Role | Phone | + +------+ + PCP | Unavailable | + +------+ + Encounter Details +--------+ + + + + | Date | Type | Department | Care Team | Description | +--------+ + + + + | 05/15/ | Hospital | [facility] | | | | 1991 | Encounter | MED CTR XRAY [address] | | | | | | [address] [place] | | | | | | [place] [address] | | | | | | [phone] | | | +--------+ + + + [...]
--- OUTSIDE RECORDS SUMMARY | ~2020-05-29 | XMS | Encounter Summary ---
Demographics + + + | Address | [address] | | | [place] [address] | + + + | Home Phone [...] + + + | Author | [place] [employer] [facility] | + + + | Organization | [facility] [employer] [facility] | + [...] Providers + +------+ + | Care Senior Recruiter Name | Role | Phone | + +------+ + | Brenden Benavides MD | PCP | | + +------+ + Encounter Details +--------+ + + + + | Date | Type | Department | Care Team | Description | +--------+ + + + + | 02/22/ | Telephone | [facility] | Brad Currie MD | | | 2006 | | [place] | | | | | | Neuro-Ophthalmology | | | | | | [address] [facility] | | | | | | Mailcode: PATTI | | | | | | [place] [address] | | | | | | [phone] | | | +--------+ + + + [...]
--- OUTSIDE RECORDS SUMMARY | ~2020-05-29 | XMS | Encounter Summary ---
Demographics + + + | Address | [address] | | | [place] [address] | + + + | Home Phone [...] + + + | Author | [place] [employer] [facility] | + + + | Organization | [facility] [employer] [facility] | [...] Team Providers + +------+ + | Care Rating Specialist Name | Role | Phone | [...] | | [place] Mailcode:OP14B | [place], | | | | | [place] | [place] [address] | | | | | [place], [place] | | | | | | [address] | | | | | | [phone] | | | +--------+ + + + [...]
--- OUTSIDE RECORDS SUMMARY | ~2020-05-29 | XMS | Encounter Summary ---
Demographics + + + | Address | [address] | | | [place] [address] | + + + | Home Phone [...] | Organization | [facility] [...] Providers + +------+ + | Care Electric Truck Driver Name | Role | Phone | + +------+ + PCP | Unavailable | + +------+ + Encounter Details +--------+ + + + + | Date | Type | Department | Care Team | Description | +--------+ + + + + | 04/18/ | Hospital | [facility] | | | | 1991 | Encounter | MED CTR EMERGENCY | | | | | | CENTER [address] | | | | | | [place] | | | | | | [address] | | | | | | [phone] | | | +--------+ + + + [...]
--- OUTSIDE RECORDS SUMMARY | ~2020-05-29 | XMS | Encounter Summary ---
Demographics + + + | Address | [address] | | | [place] [address] | + + + | Home Phone [...] + + | Author | [place] [employer] [facility] | + + + | Organization | [facility] [employer] [facility] | + [...] Providers + +------+ + | Care Quality Control Projectionist Name | Role | Phone | + [...] | Headache | | 2005 | | [place]/Ophthalmol | MD Jordin | | | | | leon at [facility] [address] | | | | | | [address] [place] Mailcode: | | | | | | CH11P [facility] | | | | | | Health and Healing, | | | | | | Building | | | | | | Floor [place], [place] | | | | | | [address] | | | | | | [phone] | | | +--------+ + + + [...]
--- OUTSIDE RECORDS SUMMARY | ~2020-05-29 | XMS | Encounter Summary ---
Demographics + + + | Address | [address] | | | [place] [address] | + + + | Home Phone [...] + + | Author | [place] [facility] | + + + | Organization | [facility] [...] Team Providers + +------+ + | Care Sociology Professor Name | Role | Phone | + +------+ + | Pedro Luis Sams MD | PCP | | + +------+ + Encounter Details +--------+ + + + + | Date | Type | Department | Care Team | Description | +--------+ + + + + | 10/19/ | Telephone | [facility] | Funmilayo Osorio MD | | | 2010 | | [place]/Ophthalmol | [address] | | | | | leon at [facility] [address] | [place], [place] | | | | | [address] Mailcode: | [address] | | | | | [address] [facility] | [phone] | | | | | Health and Healing, | | | | | | [facility] | | | | | | [place], [place] | | | | | | [address] | | | | | | [phone] | | | +--------+ + + + [...]
--- OUTSIDE RECORDS SUMMARY | ~2020-05-29 | XMS | Encounter Summary ---
Demographics + + + | Address | [address] | | | [place] [address] | + + + | Home Phone [...] + + + | Author | [place] [facility] | + + + | Organization | [facility] | + + + | Address | Unknown | + + + | Phone | Unavailable | + + + Support + + +---------+ + | Name | Relationship | Address | Phone | + + +---------+ + | Ruby Au | ECON | Unknown | | + + +---------+ + Care Team Providers + +------+ + | Care Drill Sharpener Name | Role | Phone | + +------+ + | Pedro Luis Sams MD | PCP | | + +------+ + Encounter Details +--------+ + + + + | Date | Type | Department | Care Team | Description | +--------+ + + + + | 08/31/ | Telephone | [facility] | Leticia Pitts MD | | | 2010 | | [place]/Ophthalmol | | | | | | leon at [facility] [address] | | | | | | [address] Mailcode: | | | | | | [facility] [facility] | [facility] | | [facility], | | | | | | [facility] | | | | | | Floor [place], [place] | | | | | | [address] | | | | | | [phone] | | | +--------+ + + + [...]
--- OUTSIDE RECORDS SUMMARY | ~2020-05-29 | XMS | Encounter Summary ---
Demographics + + + | Address | [address] | | | [place] [address] | + + + | Home Phone [...] + + + | Author | [place] [facility] | + + + | Organization | [facility] | + + [...] + +------+ + | Care Customer Experience Specialist Name | Role | Phone | + +------+ + | Dennis Maddox | PCP | | + +------+ + Encounter Details +--------+ + + + + | Date | Type | Department | Care Team | Description | +--------+ + + + + | 02/28/ | Emergency | [facility] Emergency | | | | 2013 - | | Department [address] | | | | | [address] | | | | 03/01/ | | [facility] | | | | 2013 | | [place], [place] | | | | | | [address] | | | | | | [phone] | | | +--------+ + + + [...]
--- OUTSIDE RECORDS SUMMARY | ~2020-05-29 | XMS | Encounter Summary ---
Demographics + + + | Address | [address] | | | [place] [address] | + + + | Home Phone [...] + + + | Author | [place] [facility] | + + + | Organization | [facility] | + + [...] 07/24/ | Telephone | Neurosurgery at | Ealdio Pang MD | Headache | | 2008 | | [facility] [address] | [address] | | | | | Ave Mailcode: [address] | [place], [place] | | | | | [facility] | [address] | | | | | and Healing, | [phone] | | | | | [facility] | | | | | | Floor [place], [place] | | | | | | [address] | | | | | | [phone] | | | +--------+ + + + [...]
--- OUTSIDE RECORDS SUMMARY | ~2020-05-29 | XMS | Encounter Summary ---
Demographics + + + | Address | [address] | | | [place] [address] | + + + | Home Phone [...] + + + | Author | [place] [employer] [facility] | + + + | Organization | [facility] [employer] [facility] | + [...] Team Providers + +------+ + | Care Dehydrogenation Converter Helper Name | Role | Phone | [...] | | | | | | [address] | | | | | | | [facility] | | | | | | | [place], | | | | | | | [address] [place] [address] | | | | | | | [place], [place] | | | | | | | [address] Phone: | | | | | | | [phone] | | | | | | | Fax: | | | | | | | [phone] | +--------+--------+ + + + + Encounter Details +--------+ + + + + | Date | Type | Department | Care Team | Description | +--------+ + + + + | 03/26/ | Procedure | [facility] | | Visual field testing | | 2012 | | [facility] | | | | | | [place] at [facility] [address] | | | [address] | | | | | | Mailcode: CH11P | | | | | | [facility] | | | | | | and Healing, | | | | | | | | | | | | [place], [place] | | | | | | [address] | | | | | | [phone] | | | +--------+ + + + [...] PDT Annabella Au was seen in the [facility] [place] [facility] [place] Department today, 2012, for 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 documented in this encounter Plan of Treatment Not on filedocumented as of this encounter Procedures + +--------+ + + + | Procedure Name | Priori | Date/Time | Associated Diagnosis | Comments | | | ty | | | | + +--------+ + + + | AL VISUAL FIELD | Routin | 03/26/2013 | [...]
--- OUTSIDE RECORDS SUMMARY | ~2020-05-29 | XMS | Encounter Summary ---
Demographics + + + | Address | [address] | | | [place] [address] | + + + | Home Phone [...] + + + | Author | [place] [employer] Science [facility] | + + + | Organization | [facility] [employer] Science [facility] | + [...] MD | | | 2006 | | [place] | | | | | | Neuro-Ophthalmology | | | | | | [address] [facility] | | | | | | Mailcode: PATTI | | | | | | [place] [address] | | | | | | [phone] | | | +--------+ + + + [...]
--- OUTSIDE RECORDS SUMMARY | ~2020-05-29 | XMS | Encounter Summary ---
Demographics + + + | Address | [address] | | | [place] [address] | + + + | Home Phone | | + + + | Preferred Language | Unknown | + + + | Marital Status | | + + + | Roman Catholic Affiliation | Unknown | + + + | Race | Unknown | + + + | Ethnic Group | Unknown | + + + Author + + + | Author | [facility] | | | and [place] | + + + | Organization | [facility] and [facility] | [...] Team Providers + +------+ + | Care Mustanger Name | Role | Phone | + +------+ + PCP | Unavailable | + +------+ + Encounter Details +--------+ + + + + | Date | Type | Department | Care Team | Description | +--------+ + + + + | 10/25/ | Hospital | [facility] | | | | 1991 | Encounter | MED CTR EMERGENCY | | | | | | CENTER [address] | | | | | | [place] | | | | | | [address] | | | | | | [phone] | | | +--------+ + + + [...]
--- OUTSIDE RECORDS SUMMARY | ~2020-05-29 | XMS | Encounter Summary ---
Demographics + + + | Address | [address] | | | [place] [address] | + + + | Home Phone [...] + + + | Author | [place] [employer] Science [facility] | + + + | Organization | [facility] [employer] Science [facility] | + [...] Providers + +------+ + | Care Solar Tech Name | Role | Phone | [...] | | | Ave Mailcode: CH8N | [place], [place] | | | | | [facility] | [address] | | | | | and Healing, | [phone] | | | | | [facility] | | | | | | Floor [place], [place] | | | | | | [address] | | | | | | [phone] | | | +--------+ + + + [...]
--- OUTSIDE RECORDS SUMMARY | ~2020-05-29 | XMS | Encounter Summary ---
Demographics + + + | Address | [address] | | | [place] [address] | + + + | Home Phone [...] + + + | Author | [place] [employer] Science [facility] | + + + | Organization | [facility] Science [facility] [...] Team Providers + +------+ + | Care Psychiatric Cns Name | Role | Phone | + +------+ + | Brenden Benavides MD | PCP | | + +------+ + Encounter Details +--------+ + + + + | Date | Type | Department | Care Team | Description | +--------+ + + + + | 09/28/ | Documentati | [facility] | Brad Currie MD | | | 2006 | on | [place] | | | | | | Neuro-Ophthalmology | | | | | | [address] | | | | | | Mailcode: PATTI | | | | | | [place] [address] | | | | | | [phone] | | | +--------+ + + + [...]
--- OUTSIDE RECORDS SUMMARY | ~2020-05-29 | XMS | Encounter Summary ---
Demographics + + + | Address | [address] | | | [place] [address] | + + + | Home Phone [...] Organization | [facility] | | | and [place] [...] Team Providers + +------+ + | Care Nutrition Services Assistant Name | Role | Phone | + +------+ + PCP | Unavailable | + +------+ + Encounter Details +--------+ + + + + | Date | Type | Department | Care Team | Description | +--------+ + + + + | 05/28/ | Hospital | [facility] | | | | 1991 | Encounter | MED CTR EMERGENCY | | | | | | CENTER [address] | | | | | | [place] | | | | | | [address] | | | | | | [phone] | | | +--------+ + + + [...]
--- OUTSIDE RECORDS SUMMARY | ~2020-05-29 | XMS | Encounter Summary ---
Demographics + + + | Address | [address] | | | [place] [address] | + + + | Home Phone [...] + + + | Author | [place] [employer] [facility] | + + + | Organization | [facility] [employer] Science [facility] | + [...] Team Providers + +------+ + | Care Otr Tanker Truck Driver Name | Role | Phone [...] | Visit | Medicine Clinic at | TIPPLE ENGINEER [address] [facility] | Pre-Operative | | | | [facility] 4th Floor [address] | Examination (Primary | | | | [address] | [place], [place] | Dx); Pseudotumor | | | | Mailcode: CH4S | [address] | Cerebri; Encounter | | | | [facility] | [phone] | for Long-Term | | | | and Healing, | | (Current) Use of | | | | Building 1,4th Floor | | Anticoagulants | | | | [place], [place] | | | | | | [address] | | | | | | [phone] | | | +--------+---------+ + + + [...] Scanned [facility],[address] [place] [address] documented in this encou nter Plan of Treatment + + +--------+ + + | Name | Type | Priori | Associated Diagnoses | Order Schedule | | | | ty | | | + + +--------+ + + | SC COLLECTION VENOUS | Procedures | Routin | [...] | + + + + + | [facility] DEPARTMENT OF | [address] [facility] | [place] [address] | | | PATHOLOGY | [address] | | | + + + + + | [facility] DEPARTMENT OF | [address] [facility] | [place] [address] | | | PATHOLOGY | [address] [...] | + + + + + | [facility] | [address] | [place] [address] | | | PATHOLOGY | [address] | | | + + + + + | [facility] | [address] | [place] [address] | | | PATHOLOGY | [address] [...] | + + + + + | [facility] | [address] [facility] | [place] [address] | | | PATHOLOGY | [address] | | | + + + + + | [facility] | [address] [facility] [facility] | [place] [address] | | | PATHOLOGY | [address] [...] | + + + + + | [facility] | [address] [facility] [facility] | [place] [address] | | | PATHOLOGY | [address] | | | + + + + + | [facility] | [address] [place] [address] | [place] [address] | | | PATHOLOGY | [address] [...] Performed At | + + + | [id number] Estimated GFR > 60 mL/min/1.73 sq m if non- | [facility] | | [place] [id number] Estimated GFR > 60 mL/min/1.73 sq m if | DEPARTMENT OF | | [place] GFR is estimated using the MDRD equation [...] | + + + + + | [facility] DEPARTMENT OF | [address] | [place] [address] | | | PATHOLOGY | [address] | | | + + + + + | [facility] DEPARTMENT OF | [address] | [place] [address] | | | PATHOLOGY | [address] [...] | + + + + + | [facility] DEPARTMENT OF | [address] | [place] [address] | | | PATHOLOGY | [address] | | | + + + + + | [facility] | [address] | [place] [address] | | | PATHOLOGY | [address] | | | + + + + + documented in this encounter Visit Diagnoses + + | Diagnosis | + + | Other specified pre-operative examination - Primary | + + | Pseudotumor cerebri Benign intracranial hypertension | + + | dietetic technician (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
--- OUTSIDE RECORDS SUMMARY | ~2020-05-29 | XMS | Encounter Summary ---
Demographics + + + | Address | [address] | | | [place] [address] | + + + | Home Phone [...] [facility] | | | and [place] [...] Team Providers + +------+ + | Care Lease Purchase Truck Driver Name | Role | Phone | + +------+ + PCP | Unavailable | + +------+ + Encounter Details +--------+ + + + + | Date | Type | Department | Care Team | Description | +--------+ + + + + | 11/04/ | Hospital | [facility] | Unknown, | | | 2004 | Encounter | MED CTR XRAY [address] | MD [address] . | | | | | [place] | | | | | | [place] [address] | (Fax) | | | | | [phone] | | | +--------+ + + + [...]
--- OUTSIDE RECORDS SUMMARY | ~2020-05-29 | XMS | Encounter Summary ---
Demographics + + + | Address | [address] | | | [place] [address] | + + + | Home Phone [...] + + + | Author | [place] [employer] Science [facility] | + + + | Organization | [facility] [facility] | + [...] Providers + +------+ + | Care Physician Primary Care Sports Medicine Name | Role | Phone | + [...] Other | | 2005 | | [facility] | [place] [address] | | | | | [address] Mailcode:OP14B | [place], [place] | | | | | [facility] | [address] | | | | | [place], [place] | | | | | | [address] | | | | | | [phone] | | | +--------+ + + + [...]
--- OUTSIDE RECORDS SUMMARY | ~2020-05-29 | XMS | Encounter Summary ---
Demographics + + + | Address | [address] | | | [place] [address] | + + + | Home Phone [...] + + + | Author | [place] mGaadi Science [facility] | + + + | Organization | [facility] [employer] [facility] [...] Providers + +------+ + | Care Cook Barbecue Name | Role | Phone | + [...] Cerebri; | | 2006 | Visit | [place]/Ophthalmol | | Papilledema | | | | ogy at [facility] [address] | | Associated with | | | | [address] Mailcode: | | Increased | | | | CH11P Center for | | Intracranial | | | | Health and Healing, | | Pressure; Transient | | | | Building | | Visual Loss | | | | Floor [place], [place] | | | | | | [address] | | | | | | [phone] | | | +--------+---------+ + + + [...] HPI: 31 y.o. year old female from [place] : Patient presents with: Transient visual loss [...] seconds; these occur 2-3 x per w metlakatla. Hobbies: Tobacco use: reports that she has [...] continue follow-up for psuedotumor w [facility] neuro-ophth. Follow up at [facility] prn new symptoms or complaints. WADE [...]
--- OUTSIDE RECORDS SUMMARY | ~2020-05-29 | XMS | Encounter Summary ---
Demographics + + + | Address | [address] | | | [place] [address] | + + + | Home Phone [...] + + + | Author | [place] [employer] [facility] | + + + | Organization | [facility] [facility] | + [...] Providers + +------+ + | Care Overhead Crane Technician Name | Role | Phone | [...] Refill Request | | 2006 | | [place] | [address] | | | | | Oculoplastics at | Rd [place], [place] | | | | | [facility] [address] | [address] | | | | | [address] | | | | | | Eye [place] | | | | | | [facility], [address] [place] [address] | | | | | | [place] [address] | | | | | | [phone] | | | +--------+ + + + [...]
--- OUTSIDE RECORDS SUMMARY | ~2020-05-29 | XMS | Encounter Summary ---
Demographics + + + | Address | [address] | | | [place] [address] | + + + | Home Phone [...] + + + | Author | [place] [employer] [facility] | + + + | Organization | [facility] [employer] [facility] | + + + | Address | Unknown | + + + | Phone | Unavailable | + + + Support + + +---------+ + | Name | Relationship | Address | Phone | + + +---------+ + | Ruby Au | ECON | Unknown | | + + +---------+ + Care Team Providers + +------+ + | Care Composite Laminator Name | Role | Phone | + [...] Care Coordination | | 2018 | | [place] | MD [address] | | | | | Neuro-Ophthalmology | [facility] [place] | | | | | at [facility] [address] | [address] | | | | | Ave Mailcode: CH3G | [phone] | | | | | [facility] | | | | | | and Healing, | | | | | | Building | | | | | | Floor [place], [place] | | | | | | [address] | | | | | | [phone] | | | +--------+ + + + [...]
--- OUTSIDE RECORDS SUMMARY | ~2020-05-29 | XMS | Encounter Summary ---
Demographics + + + | Address | [address] | | | [place] [address] | + + + | Home Phone [...] + + + | Author | [place] [employer] [facility] | + + + | Organization | [facility] [employer] [facility] | [...] Team Providers + +------+ + | Care Scale Clerk Name | Role | Phone | [...] Cerebri; | | 2006 | Visit | [place] | Cassi [place] | Pain in or Around | | | | Oculoplastics at | [place], [place] | Eye | | | | [address] | [address] | | | | | [address] | [phone] | | | | | Eye [place] | | | | | | [facility] floor | | | | | | [place] [address] | | | | | | [phone] | | | +--------+---------+ + + + [...] to be seen here or by an medical staff assistant in [facility], but she says she does not have transportation. I will call in Vicodin #20, pt to call i mmediately if there is any worsening. Pt states lucho lump in left confucianism is gone. No pain. Pt. Had cough [...]
--- OUTSIDE RECORDS SUMMARY | ~2020-05-29 | XMS | Encounter Summary ---
Demographics + + + | Address | [address] | | | [place] [address] | + + + | Home Phone [...] | Organization | [facility] | | [...] Team Providers + +------+ + | Care Managing Partner Digital Content Marketing [place] Name | Role | Phone | + +------+ + PCP | Unavailable | + +------+ + Encounter Details +--------+ + + + + | Date | Type | Department | Care Team | Description | +--------+ + + + + | 08/21/ | Hospital | [facility] | | | | 1991 | Encounter | MED CTR EMERGENCY | | | | | | CENTER [address] | | | | | | [place] | | | | | | [address] | | | | | | [phone] | | | +--------+ + + + [...]
--- OUTSIDE RECORDS SUMMARY | ~2020-05-29 | XMS | Encounter Summary ---
Demographics + + + | Address | [address] | | | [place] [address] | + + + | Home Phone [...] | Organization | [facility] | | | [...] Team Providers + +------+ + | Care Erector Operator Name | Role | Phone | + +------+ + PCP | Unavailable | + +------+ + Encounter Details +--------+ + + + + | Date | Type | Department | Care Team | Description | +--------+ + + + + | 09/30/ | Hospital | [facility] | | | | 1991 | Encounter | MED CTR WOMENS | | | | | | HEALTH [address] | | | | | | [place], | | | | | | [place] [address] | | | | | | [phone] | | | +--------+ + + + [...]
--- OUTSIDE RECORDS SUMMARY | ~2020-05-29 | XMS | Encounter Summary ---
Demographics + + + | Address | [address] | | | [place] [address] | + + + | Home Phone [...] | Organization | [facility] [...] Providers + +------+ + | Care Gas Scrubber Operator Name | Role | Phone | + +------+ + PCP | Unavailable | + +------+ + Encounter Details +--------+ + + + + | Date | Type | Department | Care Team | Description | +--------+ + + + + | 05/21/ | Hospital | [facility] | | | | 1991 | Encounter | [facility] | | | | | | HEALTH [address] | | | | | | [place], | | | | | | [place] [address] | | | | | | [phone] | | | +--------+ + + + [...]
--- OUTSIDE RECORDS SUMMARY | ~2020-05-29 | XMS | Encounter Summary ---
Demographics + + + | Address | [address] | | | [place] [address] | + + + | Home Phone [...] + + + | Author | [place] Venuemob Science [facility] | + + + | Organization | [facility] [employer] [facility] | + + [...] Providers + +------+ + | Care Medical Receptionist Name | Role | Phone | [...] Letter Encounter | | 2008 | | [facility] | [address] | | | | | and Healing [address] | [place], [place] | | | | | [address] Mailcode: | [address] | | | | | CH8N [facility] | [phone] | | | | | Health and Healing, | | | | | | Building 1, | | | | | | Floor [place], [place] | | | | | | [address] | | | | | | [phone] | | | +--------+ + + + [...]
--- OUTSIDE RECORDS SUMMARY | ~2020-05-29 | XMS | Encounter Summary ---
Demographics + + + | Address | [address] | | | [place] [address] | + + + | Home Phone [...] + + + | Author | [place] Push Technology Science [facility] | + + + | Organization | [facility] HipSwap Science [facility] | + [...] Team Providers + +------+ + | Care Blackjack Dealer Name | Role | Phone | + [...] | | Ave Mailcode: CH8N | [place], [place] | | | | | [facility] | [address] | | | | | and Healing, | [phone] | | | | | [facility] | | | | | | Floor [place], [place] | | | | | | [address] | | | | | | [phone] | | | +--------+ + + + [...]
--- OUTSIDE RECORDS SUMMARY | ~2020-05-29 | XMS | Encounter Summary ---
Demographics + + + | Address | [address] | | | [place] [address] | + + + | Home Phone [...] + + + | Author | [place] LV Sensors Science [facility] | + + + | Organization | [facility] WorkHands Science [facility] | + [...] Providers + +------+ + | Care Lining Vamper Name | Role | Phone | + +------+ + | Denins Maddox | PCP | | + +------+ [...] | Headache | | 2015 | | [place] | [address] | | | | | Neuro-Ophthalmology | [facility] [place] | | | | | at [facility] [address] | [address] | | | | | Ave Mailcode: [facility] | [phone] | | | | | [facility] | | | | | | and Healing, | | | | | | Building | | | | | | Floor [place], [place] | | | | | | [address] | | | | | | [phone] | | | +--------+ + + + [...]
--- OUTSIDE RECORDS SUMMARY | ~2020-05-29 | XMS | Encounter Summary ---
Demographics + + + | Address | [address] | | | [place] [address] | + + + | Home Phone [...] | Organization | [facility] | | | and [place] [...] Providers + +------+ + | Care Meat Butcher Name | Role | Phone | + +------+ + PCP | Unavailable | + +------+ + Encounter Details +--------+ + + + + | Date | Type | Department | Care Team | Description | +--------+ + + + + | 07/17/ | Hospital | [facility] | Domingo Darby, | | | 2010 | Encounter | [facility] | [address] | | | | | EMERGENCY CENTER | [place] [address] | | | | | [address] | [phone] | | | | | [place], [place] | | | | | | [address] | | | | | | [phone] | | | +--------+ + + + [...] 07/17/2011 Age/Sex: 35Y / F : 1975 [id number] / [id number] CHIEF COMPLAINT: Anxiety. HISTORY OF PRESENT ILLNESS: [...] saturatio ns 95% on room air. INTEGUMENT: [place], warm and dry. No lesions, lacerations or abrasions. HEENT: Normocephalic, atraumatic. Pupils are equal, round, and reactive to light and accomm odation. EOMs are intact. MUSCULOSKELETAL: Moves all extremities well. HEART: Regular rate and rhythm. LUNGS: Clear. ABDOMEN: Benign. GENITOURINARY/RECTAL: Deferred. Jt STEWART ADM:07/17/11 [id number] DEP ER EMERGENCY DEPARTMENT RECORD [id number] [facility] JASPER Dorantes E-Sign: [facility] MD Lizeth Smith THIS REPORT IS CONFIDENTIAL AND NOT TO BE RELEASED WITHOUT PROPER AUTHORIZATION. [facility] NEUROLOGIC: Intact. PSYCHIATRIC: Calm and cooperative. EMERGENCY [...] help with sleep at night. Followup with [facility]. Return if symptoms worsen. Discharged stable. JASPER Mc MD P A [facility] #[id number] cc: MD Maryellen Parker ARNP Electronically Signed 07/20/11 0136 [place] Darby MD Jt STEWART S ADM:07/17/11 [id number] [facility] EMERGENCY DEPARTMENT RECORD [id number] [facility] JASPER Dorantes E-Sign: [facility] [place] MD Lizeth Smith THIS REPORT IS CONFIDENTIAL AND NOT TO BE RELEASED WITHOUT PROPER AUTHORIZATION.Electronica lly signed by JASPER Mc at 10/03/2013 10:53 AM PSTdocumented in this encounter Plan of Treatment Not on filedocumented as of this encounter Visit Diagnoses Not on filedocumented in this encounter"
--- OUTSIDE RECORDS SUMMARY | ~2020-05-29 | XMS | Encounter Summary ---
Demographics + + + | Address | [address] | | | [place] [address] | + + + | Home Phone [...] + + + | Author | [place] AdmitOne Security [facility] | + + + | Organization | [facility] PayBox Payment Solutions [facility] | + [...] | | | Ave Mailcode: CH8N | [place], [place] | | | | | [facility] | [address] | | | | | and Healing, | [phone] | | | | | [facility] | | | | | | Floor [place], [place] | | | | | | [address] | | | | | | [phone] | | | +--------+ + + + [...]
--- OUTSIDE RECORDS SUMMARY | ~2020-05-29 | XMS | Encounter Summary ---
Demographics + + + | Address | [address] | | | [place] [address] | + + + | Home Phone [...] + | Organization | [facility] | [...] Team Providers + +------+ + | Care Glove Cutter Name | Role | Phone | + +------+ + PCP | Unavailable | + +------+ + Encounter Details +--------+ + + + + | Date | Type | Department | Care Team | Description | +--------+ + + + + | 07/06/ | Hospital | [facility] | Mirna Lambert | | | 2007 | Encounter | MED CTR EMERGENCY | MD Kwaku Gregory | | | | | [place] [address] | [facility] | | | | | [place] | [place] [address] | | | | | [address] | [phone] | | | | | [phone] | | | +--------+ + + + [...]
--- OUTSIDE RECORDS SUMMARY | ~2020-05-29 | XMS | Encounter Summary ---
Demographics + + + | Address | [address] | | | [place] [address] | + + + | Home Phone [...] + + | Author | [place] Setup Science [facility] | + + + | Organization | [facility] Lonely Sock [facility] | + [...] Providers + +------+ + | Care Hardware Installer Name | Role | Phone | [...] Cerebri | | 2006 | Visit | [place] | | | | | | Photography at | | | | | | [address] | | | | | | [address] | | | | | | Eye [place], [address] | | | | | | floor [place], [place] | | | | | | [address] | | | +--------+---------+ + + + [...] PM DINOAnnabella Au was seen in the [facility] [place] [facility]Ultrasound Department today, 11/30/2006, for ultrasound OU [...]
--- OUTSIDE RECORDS SUMMARY | ~2020-05-29 | XMS | Encounter Summary ---
Demographics + + + | Address | [address] | | | [place] [address] | + + + | Home Phone [...] + + + | Author | [place] boomtrain Science [facility] | + + + | Organization | [facility] Addy Science [facility] [...] Team Providers + +------+ + | Care Extension Work Director Name | Role | Phone | [...] Cerebri | | 2005 | Visit | [place] | | (Primary Dx) | | | | Neuro-Ophthalmology | | | | | | [address] [facility] | | | | | | Mailcode: PATTI | | | | | | [place] [address] | | | | | | [phone] | | | +--------+---------+ + + + [...] Brad Currie MD Neuro-Ophthalmology and Cerebrovascular Disease Measurer of Ophthalmology, Neurology, and Neurosurgery documented in this encounter Plan of Treatment + + +--------+ + + | Name | Type | Priori | Associated Diagnoses | Order Schedule | | | | ty | | | + + +--------+ + + | MT VISUAL FIELD | Procedures | Routin | Pseudotumor | Ordered: 10/13/2006 | | EXAM,EXTENDED | | e | Cerebri | | + + +--------+ + + documented as of this encounter Visit Diagnoses + + | Diagnosis | + + | Pseudotumor cerebri - Primary Benign intracranial hypertension | + + documented in this encounter"
--- OUTSIDE RECORDS SUMMARY | ~2020-05-29 | XMS | Encounter Summary ---
Demographics + + + | Address | [address] | | | [place] [address] | + + + | Home Phone [...] + + + | Author | [place] [employer] [facility] | + + + | Organization | [facility]key Pokey [facility] | + [...] + +------+ + | Care Aeronautical Engineering Professor Name | Role | Phone | [...] Cerebri | | 2006 | Visit | [facility] | Bud Alexander MD [address] | (Primary Dx) | | | | [facility] [address] | Cassi [address] | | | | | [address] | [place], [place] | | | | | [facility] | [address] | | | | | [place], [place] | [phone] | | | | | [address] | [...]
--- OUTSIDE RECORDS SUMMARY | ~2020-05-29 | XMS | Encounter Summary ---
Demographics + + + | Address | [address] | | | [place] [address] | + + + | Home Phone [...] + + + | Author | [place] [employer] [facility] | + + + | Organization | [facility] Ign[employer] [facility] [...] Providers + +------+ + | Care Color Card Maker Name | Role | Phone | [...] Cerebri | | 2006 | Visit | [place] | | (Primary Dx) | | | | Neuro-Ophthalmology | | | | | | [address] [facility] | | | | | | Mailcode: PATTI | | | | | | [place] [address] | | | | | | [phone] | | | +--------+---------+ + + + [...] Referred by: CASIMIRO PAYTON MD [address] [place] [address] Symptoms: Patient feels things are better. Vision [...] Brad Currie MD Neuro-Ophthalmology and Cerebrovascular Disease Laborer Sawmill of Ophthalmology, Neurology, and Neurosurgery documented in this encounter Plan of Treatment + + +--------+ + + | Name | Type | Priori | Associated Diagnoses | Order Schedule | | | | ty | | | + + +--------+ + + | TN VISUAL FIELD | Procedures | Routin | Pseudotumor | Ordered: 01/30/2007 | | EXAM,EXTENDED | | e | Cerebri | | + + +--------+ + + documented as of this encounter Visit Diagnoses + + | Diagnosis | + + | Pseudotumor cerebri - Primary Benign intracranial hypertension | + + documented in this encounter"
--- OUTSIDE RECORDS SUMMARY | ~2020-05-29 | XMS | Encounter Summary ---
Demographics + + + | Address | [address] | | | [place] [address] | + + + | Home Phone [...] | [facility] Byers [...] Team Providers + +------+ + | Care Retirement Administrator Name | Role | Phone | + +------+ + PCP | Unavailable | + +------+ + Encounter Details +--------+ + + + + | Date | Type | Department | Care Team | Description | +--------+ + + + + | 04/24/ | Hospital | [facility] | | | | 2004 | Encounter | MED CTR EMERGENCY | | | | | | CENTER [address] | | | | | | [place] | | | | | | [address] | | | | | | [phone] | | | +--------+ + + + [...]
--- OUTSIDE RECORDS SUMMARY | ~2020-05-29 | XMS | Encounter Summary ---
Demographics + + + | Address | [address] | | | [place] [address] | + + + | Home Phone [...] | Organization | [facility] Byers [...] Providers + +------+ + | Care Marketing And Outreach Coordinator Name | Role | Phone | + +------+ + PCP | Unavailable | + +------+ + Encounter Details +--------+ + + + + | Date | Type | Department | Care Team | Description | +--------+ + + + + | 09/03/ | Hospital | [facility] | | | | 1991 | Encounter | MED CTR WOMENS | | | | | | HEALTH [facility] [address] | | | | | | [place], | | | | | | [place] [address] | | | | | | [phone] | | | +--------+ + + + [...]
--- OUTSIDE RECORDS SUMMARY | ~2020-05-29 | XMS | Encounter Summary ---
Demographics + + + | Address | [address] | | | [place] [address] | + + + | Home Phone [...] + + + | Author | [place] [employer] [facility] | + + + | Organization | [facility] [employer] Science [facility] | + + [...] Providers + +------+ + | Care Administrative Officer Name | Role | Phone | [...] [address] | | | | | | [place] | Ave | | | | | | [address] | [place], [place] | | | | | | [place], | [address] | | | | | | [place] [address] | Phone: | | | | | | Phone: | [phone] | | | | | | [phone] | Fax: | | | | | | Fax: | [phone] | | | | | | [phone] | | +--------+ + + + + [...] | | | Ave Mailcode: CH8N | [place], [place] | | | | | [facility] | [address] | | | | | and Healing, | [phone] | | | | | [facility] | | | | | | Floor [place], [place] | | | | | | [address] | | | | | | [phone] | | | +--------+---------+ + + + [...] soon. I spent more than 15 minutes eorf-tu-zrss with the patient of which greater than 50% was sp ent counseling the patient regarding the shunt removal, indications and venous sinus stent a ngioplasty. Since her shunt is brent effective now she will need narcotics for headache and he r PCP should manage that. CASIMIRO PAYTON MD NEUROSURGERY [address] Mailcode: Ch8n [facility], 8th [facility] [place] [facility] [address] documented in this encou nter Plan of Treatment Not on filedocumented as of this encounter Visit Diagnoses + + | Diagnosis | + + | Pseudotumor cerebri - Primary Benign intracranial hypertension | + + documented in this encounter
--- OUTSIDE RECORDS SUMMARY | ~2020-05-29 | XMS | Encounter Summary ---
Demographics + + + | Address | [address] | | | [place] [address] | + + + | Home Phone | | + + + | Preferred Language | Unknown | + + + | Marital Status | | + + + | Latter-Day Affiliation | NON | + + + | Race | or | + + + | Ethnic Group | Not or | + + + Author + + + | Author | [place] [employer] [facility] | + + + | Organization | [facility] Mein[employer]spe[employer] Science [facility] [...] Providers + +------+ + | Care Forensic Engineer Name | Role | Phone | [...] [address] | | | | | | [place] | Ave | | | | | | [address] | [place], [place] | | | | | | [place], | [address] | | | | | | [place] [address] | Phone: | | | | | | Phone: | [phone] | | | | | | [phone] | Fax: | | | | | | Fax: | [phone] | | | | | | [phone] | | +--------+ + + + + [...] | | | Ave Mailcode: CH8N | [place], [place] | | | | | [facility] | [address] | | | | | and Healing, | [phone] | | | | | [facility] | | | | | | Floor [place], [place] | | | | | | [address] | | | | | | [phone] | | | +--------+---------+ + + + [...] soon. I spent more than 15 minutes gguu-vq-tqny with the patient of which greater than 50% was sp ent counseling the patient regarding the shunt removal, indications and venous sinus stent a ngioplasty. Since her shunt is brent effective now she will need narcotics for headache and he r PCP should manage that. CASIMIRO PAYTON MD NEUROSURGERY [address] Mailcode: Ch8n [facility], 8th [facility] [address] documented in this encou nter Plan of Treatment Not on filedocumented as of this encounter Visit Diagnoses + + | Diagnosis | + + | Pseudotumor cerebri - Primary Benign intracranial hypertension | + + documented in this encounter
--- OUTSIDE RECORDS SUMMARY | ~2020-05-29 | XMS | Encounter Summary ---
Demographics + + + | Address | [address] | | | [place] [address] | + + + | Home Phone [...] + + + | Author | [place] Topic Science [facility] | + + + | Organization | [facility] [...] Team Providers + +------+ + | Care Crushed Stone Grader Name | Role | Phone | [...] | | Ophthalmology | | Non-[place] | [place], | | | | | | Epic Dept | Graciela Guardado MD | | | | | | | [address] | | | | | | | Ave | | | | | | | [place], [place] | | | | | | | [address] | | | | | | | Phone: | | | | | | | [phone] | | | | | | | Fax: | | | | | | | [phone] | +--------+--------+ + + + + Encounter Details +--------+---------+ + + + | Date | Type | Department | Care Team | Description | +--------+---------+ + + + | 03/26/ | Office | [facility] | Mo Hood | Pseudotumor cerebri | | 2012 | Visit | [place]/Ophthalmol | MD Perry | (Primary Dx); | | | | ogy at [facility] [address] | | Depression; Type II | | | | [address] Mailcode: | | or unspecified type | | | | [facility] Center for | | diabetes mellitus | | | | Health and Healing, | | without mention of | | | | Building | | complication, not | | | | Floor [place], [place] | | stated as | | | | [address] | | uncontrolled; PTSD | | | | [phone] | | (post-traumatic | | | | [...] HPI: 37 y.o. year old female from [place] : Patient presents with: IIH - Idiopathic [...] because they live 4 hours away in [facility]. Tobacco use: reports that she [...] Right Left Disc 1+ Optic disc edema, +FARM LOAN INSPECTOR 2+ Optic disc edema, RNFL whitening at the superonasal borde r of the disc. There is spontaneous pulsing of the entire disc head with heart beat. C/D Ratio 0.1 0.1 Macula Normal Normal Vessels Engorged. tortuous Engorged. tortuous Periphery Normal Normal Neuro/Psych Oriented x3: Yes Mood/Affect: Normal See [facility] Ophthalmology Exam Module for additional [...] sheath fenestra tion (by Dr. Hughes at [facility] in 2006) and s/p multiple lumboperitoneal shunt [...] Dr. Lux. Mo Hood MD Resident Physician [facility] [place], PGY-2 [facility] Physician: Mo Hood MD, 03/26/2013 documented [...]
--- OUTSIDE RECORDS SUMMARY | ~2020-05-29 | XMS | Encounter Summary ---
Demographics + + + | Address | [address] | | | [place] [address] | + + + | Home Phone [...] + + + | Author | [place] OOYYO [facility] | + + + | Organization | [facility] [employer] [facility] | + + + | Address | Unknown | + + + | Phone | Unavailable | + + + Support + + +---------+ + | Name | Relationship | Address | Phone | + + +---------+ + | Ruby Au | ECON | Unknown | | + + +---------+ + Care Team Providers + +------+ + | Care Gospel Singer Name | Role | Phone | [...] Cerebri; | | 2006 | Visit | [place] | [address] | Pain in or Around | | | | Oculoplastics at | [place], [place] | Eye | | | | [address] | [address] | | | | | [address] | [phone] | | | | | Eye [place] | | | | | | [facility] floor | | | | | | [place] [address] | | | | | | [phone] | | | +--------+---------+ + + + [...] to be seen here or by an shotweld operator in [facility], but she says she does not have transportation. I will call in Vicodin #20, pt to call i mmediately if there is any worsening. Pt states lucho lump in left adventism is gone. No pain. Pt. Had cough [...]
--- OUTSIDE RECORDS SUMMARY | ~2020-05-29 | XMS | Encounter Summary ---
Demographics + + + | Address | [address] | | | [place] [address] | + + + | Home Phone [...] + + + | Author | [place] [employer] Science [facility] | + + + | Organization | [facility] PayLease Science [facility] [...] Team Providers + +------+ + | Care Shore Hand Dredge [place] Barge Name | Role | Phone | + [...] | | | Ave Mailcode: CH8N | [place], [place] | | | | | [facility] | [address] | | | | | and Healing, | [phone] | | | | | | | | | | | Floor [place], [place] | | | | | | [address] | | | | | | [phone] | | | +--------+ + + + [...]
--- OUTSIDE RECORDS SUMMARY | ~2020-05-29 | XMS | Encounter Summary ---
Demographics + + + | Address | [address] | | | [place] [address] | + + + | Home Phone [...] + + + | Author | [place] [employer] Science [facility] | + + + | Organization | [facility] Unruly Science [facility] [...] Team Providers + +------+ + | Care Hydrometeorologist Name | Role | Phone | + [...] | | | Ave Mailcode: CH8N | [place], [place] | Encounters | | | | [facility] | [address] | | | | | and [place], | [phone] | | | | | [facility] | | | | | | Floor [place], [place] | | | | | | [address] | | | | | | [phone] | | | +--------+ + + + [...]
--- OUTSIDE RECORDS SUMMARY | ~2020-05-29 | XMS | Encounter Summary ---
Demographics + + + | Address | [address] | | | [place] [address] | + + + | Home Phone [...] + + + | Author | [place] [employer] Science [facility] | + + + | Organization | [facility] ShipEarly Science [facility] | + + + | Address | Unknown | + + + | Phone | Unavailable | + + + Support + + +---------+ + | Name | Relationship | Address | Phone | + + +---------+ + | Ruby Au | ECON | Unknown | | + + +---------+ + Care Team Providers + +------+ + | Care Corrosion Control Specialist Name | Role | Phone | [...] | Prescription | | 2012 | | [place]/Ophthalmol | MD Perry | | | | | leon at [facility] [address] | | | | | | [address] Mailcode: | | | | | | CH11P [facility] | | | | | | Health and [facility], | | | | | | Building | | | | | | [place], [place] | | | | | | [address] | | | | | | [phone] | | | +--------+ + + + [...]
--- OUTSIDE RECORDS SUMMARY | ~2020-05-29 | XMS | Encounter Summary ---
Demographics + + + | Address | [address] | | | [place] [address] | + + + | Home Phone [...] + + + | Author | [place] [employer] [facility] | + + + | Organization | [facility] [employer] Science [facility] | [...] Providers + +------+ + | Care News Photographer Name | Role | Phone | [...] | Office | Neurosurgery at | Sam Pderoza MD | Pseudotumor Cerebri | | 2007 | Visit | [facility] [address] | [address] | (Primary Dx) | | | | Ave Mailcode: CH8N | [place], [place] | | | | | [facility] | [address] | | | | | and Healing, | [phone] | | | | | [facility] | | | | | | Floor [facility] [place] | | | | | | [address] | | | | | | [phone] | | | +--------+---------+ + + + [...]
--- OUTSIDE RECORDS SUMMARY | ~2020-05-29 | XMS | Encounter Summary ---
Demographics + + + | Address | [address] | | | [place] [address] | + + + | Home Phone [...] + + + | Author | [place] [employer] Science [facility] | + + + | Organization | [facility] [employer] Science [facility] | + [...] Team Providers + +------+ + | Care Platen Drier Operator Name | Role | Phone [...] CH8N | | | | | | [facility] | | | | | | and Healing, | | | | | | Building [address], [address]th | | | | | | Floor [place], [place] | | | | | | [address] | | | | | | [phone] | | | +--------+ + + + [...]
--- OUTSIDE RECORDS SUMMARY | ~2020-05-29 | XMS | Encounter Summary ---
Demographics + + + | Address | [address] | | | [place] [address] | + + + | Home Phone [...] + + + | Author | [place] [employer] Science [facility] | + + + | Organization | [facility] DBS Science [facility] [...] Providers + +------+ + | Care Lime Mixer Tender Name | Role | Phone | [...] 08/24/ | Emergency | [facility] Emergency | Tylor Mcclellan, | | | 2010 | | Department [address] | [address] | | | | | [address] | MD Joey [address] | | | | | [facility] | [facility] [place] | | | | | [place], [place] | [place], [place] | | | | | [address] | [address] | | | | | [phone] | [phone] | | | | | | | [...] us take care of you at [facility] today. Follow up with primary care [...] +---------+ + + | [facility] DEPARTMENT OF | | | | | [...]
--- OUTSIDE RECORDS SUMMARY | ~2020-05-29 | XMS | Encounter Summary ---
Demographics + + + | Address | [address] | | | [place] [address] | + + + | Home Phone [...] Organization | [facility] | | [...] Providers + +------+ + | Care Line Crew Supervisor Name | Role | Phone | + +------+ + PCP | Unavailable | + +------+ + Encounter Details +--------+ + + + + | Date | Type | Department | Care Team | Description | +--------+ + + + + | 08/01/ | Hospital | [facility] | | | | 1991 | Encounter | MED CTR WOMENS | | | | | | HEALTH SV [address] | | | | | | [place], | | | | | | [place] [address] | | | | | | [phone] | | | +--------+ + + + [...]
--- OUTSIDE RECORDS SUMMARY | ~2020-05-29 | XMS | Encounter Summary ---
Demographics + + + | Address | [address] | | | [place] [address] | + + + | Home Phone [...] Organization | [facility] | | | [...] Team Providers + +------+ + | Care Payroll Coordinator Name | Role | Phone | + +------+ + PCP | Unavailable | + +------+ + Encounter Details +--------+ + + + + | Date | Type | Department | Care Team | Description | +--------+ + + + + | 10/21/ | Hospital | [facility] | | | | 1991 | Encounter | MED CTR WOMENS | | | | | | HEALTH SV [address] | | | | | | [place], | | | | | | [place] [address] | | | | | | [phone] | | | +--------+ + + + [...]
--- OUTSIDE RECORDS SUMMARY | ~2020-05-29 | XMS | Encounter Summary ---
Demographics + + + | Address | [address] | | | [place] [address] | + + + | Home Phone [...] + + + | Author | [place] [employer] [facility] | + + + | Organization | [facility] [employer] [facility] | + [...] Team Providers + +------+ + | Care Primary Special Education Teacher Name | Role | Phone [...] | | | Ave Mailcode: CH8N | [place], [place] | | | | | [facility] | [address] | | | | | and Healing, | [phone] | | | | | [facility] | | | | | | Floor [place], [place] | | | | | | [address] | | | | | | [phone] | | | +--------+---------+ + + + [...] wanted to have LP shunt instead of ASSISTANT MANAGER QUALITY MANAGEMENT shunt because she d oes not weant [...]
--- OUTSIDE RECORDS SUMMARY | ~2020-05-29 | XMS | Encounter Summary ---
Demographics + + + | Address | [address] | | | [place] [address] | + + + | Home Phone [...] + + | Author | [place] [employer] Science [facility] | + + + | Organization | [facility] [employer] [facility] | [...] Team Providers + +------+ + | Care Fleet Sales Manager Name | Role | Phone [...] | [place] Mailcode:OP14B | Sandra Maloney [place], | | | | | [facility] [place] [facility] | [place] [address] | | | | | [place], [place] | | | | | | [address] | | | | | | [phone] | | | +--------+ + + + [...]
--- OUTSIDE RECORDS SUMMARY | ~2020-05-29 | XMS | Encounter Summary ---
Demographics + + + | Address | [address] | | | [place] [address] | + + + | Home Phone [...] + + + | Author | [place] [employer] [facility] | + + + | Organization | [facility] [employer] [facility] | + [...] Team Providers + +------+ + | Care Brush Polisher Name | Role | Phone | + [...] | | | Ave Mailcode: CH8N | [place], [place] | | | | | [facility] | [address] | | | | | and Healing, | [phone] | | | | | [facility] | | | | | | Floor [place], [place] | | | | | | [address] | | | | | | [phone] | | | +--------+ + + + [...]
--- OUTSIDE RECORDS SUMMARY | ~2020-05-29 | XMS | Encounter Summary ---
Demographics + + + | Address | [address] | | | [place] [address] | + + + | Home Phone [...] | Organization | [facility] | | [...] Providers + +------+ + | Care Engineering Model Maker Name | Role | Phone | + +------+ + PCP | Unavailable | + +------+ + Encounter Details +--------+ + + + + | Date | Type | Department | Care Team | Description | +--------+ + + + + | 11/22/ | Hospital | [facility] | | | | 1995 | Encounter | MED CTR EMERGENCY | | | | | | CENTER [address] | | | | | | [place] | | | | | | [address] | | | | | | [phone] | | | +--------+ + + + [...]
--- OUTSIDE RECORDS SUMMARY | ~2020-05-29 | XMS | Encounter Summary ---
Demographics + + + | Address | [address] | | | [place] [address] | + + + | Home Phone [...] | Organization | [facility] | [...] + + | 03/29/ | Hospital | [facility] | | | | 2006 | Encounter | MED CTR XRAY [address] | | | | | | [address] | | | | | | [place] [address] | | | | | | [phone] | | | +--------+ + + + [...]
--- OUTSIDE RECORDS SUMMARY | ~2020-05-29 | XMS | Encounter Summary ---
Demographics + + + | Address | [address] | | | [place] [address] | + + + | Home Phone [...] | Organization | [facility] [...] Providers + +------+ + | Care Child Development Consultant Name | Role | Phone | + +------+ + PCP | Unavailable | + +------+ + Encounter Details +--------+ + + + + | Date | Type | Department | Care Team | Description | +--------+ + + + + | 07/12/ | Hospital | [facility] | Conversion | | | 2010 | Encounter | HEART MED CTR | Transaction, | | | | | EMERGENCY CENTER | Provider Unknown | | | | | [address] | | | | | | [place] | (Fax) | | | | | [address] | | | | | | [phone] | | | +--------+ + + + [...]
--- OUTSIDE RECORDS SUMMARY | ~2020-05-29 | XMS | Encounter Summary ---
Demographics + + + | Address | [address] | | | [place] [address] | + + + | Home Phone [...] + + + | Author | [place] [employer] [facility] | + + + | Organization | [facility] [employer] [facility] | [...] Team Providers + +------+ + | Care Evaporator Operator Name | Role | Phone | [...] | Headache | | 2015 | | [place] | [address] | | | | | Neuro-Ophthalmology | [facility] [place] | | | | | at [facility] [address] | [address] | | | | | Ave Mailcode: [facility] | [phone] | | | | | [facility] | | | | | | and Healing, | | | | | | Building | | | | | | Floor [place], [place] | | | | | | [address] | | | | | | [phone] | | | +--------+ + + + [...]
--- OUTSIDE RECORDS SUMMARY | ~2020-05-29 | XMS | Encounter Summary ---
Demographics + + + | Address | [address] | | | [place] [address] | + + + | Home Phone [...] + + + | Author | [place] [employer] [facility] | + + + | Organization | [facility] [employer] [facility] | + + [...] Providers + +------+ + | Care Farm Operations Technical Director Name | Role | Phone | [...] Refill Request | | 2007 | | [facility] | FLORA JOSE | | | | | and Healing [address] | Neurosurgery [address] | | | | | Gianluca Kirk Mailcode: | [address] | | | | | [facility] | [place], [place] | | | | | Health and Healing, | [address] | | | | | Building | | | | | | Floor [place], [place] | | | | | | [address] | | | | | | [phone] | | | +--------+--------+ + + + [...]
--- OUTSIDE RECORDS SUMMARY | ~2020-05-29 | XMS | Encounter Summary ---
Demographics + + + | Address | [address] | | | [place] [address] | + + + | Home Phone [...] + + + | Author | [place] [employer] [facility] | + + + | Organization | [facility] [employer] [facility] | + + + | Address | Unknown | + + + | Phone | Unavailable | + + + Support + + +---------+ + | Name | Relationship | Address | Phone | + + +---------+ + | Ruby Au | ECON | Unknown | | + + +---------+ + Care Team Providers + +------+ + | Care Gage Designer Name | Role | Phone | [...] [address] | | | | | | [facility] | | | | | | [place], [place] | | | | | | [address] | | | | | | [phone] | | | +--------+ + + + [...]
--- OUTSIDE RECORDS SUMMARY | ~2020-05-29 | XMS | Encounter Summary ---
Demographics + + + | Address | [address] | | | [place] [address] | + + + | Home Phone [...] + + + | Author | [place] [employer] Science [facility] | + + + | Organization | [facility] [employer] Science [facility] [...] Team Providers + +------+ + | Care Cnc Machine Setter Name | Role | Phone [...] | | | Ave Mailcode: CH8N | [place], [place] | | | | | [facility] | [address] | | | | | and Healing, | [phone] | | | | | [facility] | | | | | | Floor [place], [place] | | | | | | [address] | | | | | | [phone] | | | +--------+ + + + [...]
--- OUTSIDE RECORDS SUMMARY | ~2020-05-29 | XMS | Encounter Summary ---
Demographics + + + | Address | [address] | | | [place] [address] | + + + | Home Phone [...] + + | Author | [place] [employer] Science [facility] | + + + | Organization | [facility] [employer] [facility] | [...] Team Providers + +------+ + | Care Entertainment Lawyer Name | Role | Phone | [...] CH8N | | | | | | [facility] | | | | | | and Healing, | | | | | | Building 1, | | | | | | Floor [place], [place] | | | | | | [address] | | | | | | [phone] | | | +--------+ + + + [...]
--- OUTSIDE RECORDS SUMMARY | ~2020-05-29 | XMS | Encounter Summary ---
Demographics + + + | Address | [address] | | | [place] [address] | + + + | Home Phone [...] + + + | Author | [place] [employer] [facility] | + + + | Organization | [facility] | [...] Providers + +------+ + | Care Rug Dry Room Attendant Name | Role | Phone [...] | | | | | | [address] | | | | | | | [facility] | | | | | | | [place], | | | | | | | [address] [place] [address] | | | | | | | [place], [place] | | | | | | | [address] Phone: | | | | | | | [phone] | | | | | | | Fax: | | | | | | | [phone] | +--------+--------+ + + + + Encounter Details +--------+ + + + + | Date | Type | Department | Care Team | Description | +--------+ + + + + | 03/26/ | Procedure | [facility] | | Visual field testing | | 2012 | | [facility] | | | | | | [place] at [facility] [address] | | | | [address] | | | | | | Mailcode: CH11P | | | | | | [facility] | | | | | | and Healing, | | | | | | | | | | | | [place], [place] | | | | | | [address] | | | | | | [phone] | | | +--------+ + + + [...] PDT Annabella Au was seen in the [facility] [place] [facility] Department today, 2012, for 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 documented in this encounter Plan of Treatment Not on filedocumented as of this encounter Procedures + +--------+ + + + | Procedure Name | Priori | Date/Time | Associated Diagnosis | Comments | | | ty | | | | + +--------+ + + + | MS VISUAL FIELD | Routin | 03/26/2013 | [...]
--- OUTSIDE RECORDS SUMMARY | ~2020-05-29 | XMS | Encounter Summary ---
Demographics + + + | Address | [address] | | | [place] [address] | + + + | Home Phone [...] + + + | Author | [place] [employer] Science [facility] | + + + | Organization | [facility] Roomtag Science [facility] | [...] Providers + +------+ + | Care Student Accounts Coordinator Name | Role | Phone | [...] Cerebri | | 2006 | Visit | [place] | | (Primary Dx) | | | | Neuro-Ophthalmology | | | | | | [address] [facility] | | | | | | Mailcode: PATTI | | | | | | [place] [address] | | | | | | [phone] | | | +--------+---------+ + + + [...] documented as of this encounter Progress Notes [place] - 11/30/2006 11:58 AM PSTFormatting of this [...] Brad Currie MD Neuro-Ophthalmology and Cerebrovascular Disease Disk Recoater of Ophthalmology, Neurology, and Neurosurgery documented in [...]
--- OUTSIDE RECORDS SUMMARY | ~2020-05-29 | XMS | Encounter Summary ---
Demographics + + + | Address | [address] | | | [place] [address] | + + + | Home Phone [...] + + + | Author | [place] [employer] [facility] | + + + | Organization | [facility] Sign[employer] [facility] [...] Providers + +------+ + | Care Lung Splitter Name | Role | Phone | + [...] Telephone follow-up | | 2015 | | [place] | [address] | | | | | Neuro-Ophthalmology | [place], [place] | | | | | at [facility] [address] | [address] | | | | | Ave Mailcode: [facility] | [phone] | | | | | [facility] | | | | | | and [place], | | | | | | | | | | | | Floor [place], [place] | | | | | | [address] | | | | | | [phone] | | | +--------+ + + + [...]
--- OUTSIDE RECORDS SUMMARY | ~2020-05-29 | XMS | Encounter Summary ---
Demographics + + + | Address | [address] | | | [place] [address] | + + + | Home Phone [...] + + + | Author | [place] [employer] Here [facility] | + + + | Organization | [facility] [employer] [facility] | + [...] Team Providers + +------+ + | Care Ammonia Nitrate Operator Name | Role | Phone | + +------+ + | Brenden Benavides MD | PCP | | + +------+ + Encounter Details +--------+ + + + + | Date | Type | Department | Care Team | Description | +--------+ + + + + | 02/21/ | Telephone | [facility] | [address] | | | 2006 | | [place] | [address] | | | | | Oculoplastics at | [facility] [place] | | | | | Maicol Perez [address] | [address] | | | | | Becky Sun | | | | | | [facility] [place] | | | | | | [facility], 5th floor | | | | | | [place] [address] | | | | | | [phone] | | | +--------+ + + + [...]
--- OUTSIDE RECORDS SUMMARY | ~2020-05-29 | XMS | Encounter Summary ---
Demographics + + + | Address | [address] | | | [place] [address] | + + + | Home Phone [...] + + + | Author | [place] [employer] [facility] | + + + | Organization | [facility] [employer] [facility] [...] Team Providers + +------+ + | Care Relationship Executive Name | Role | Phone | [...] Letter Encounter | | 2008 | | [facility] | [address] | | | | | and Healing [address] | [place], [place] | | | | | [address] Mailcode: | [address] | | | | | CH[facility] | [phone] | | | | | Health and Healing, | | | | | | Building 1, | | | | | | Floor [place], [place] | | | | | | [address] | | | | | | [phone] | | | +--------+ + + + [...]
--- OUTSIDE RECORDS SUMMARY | ~2020-05-29 | XMS | Encounter Summary ---
Demographics + + + | Address | [address] | | | [place] [address] | + + + | Home Phone [...] + + + | Author | [place] [employer] Science [facility] | + + + | Organization | [facility] [employer] Science [facility] [...] Team Providers + +------+ + | Care Alternative Energy Engineer Name | Role | Phone | [...] Erroneous Encounter | | 2007 | | [place] for [facility] | [place] [facility] | - Disregard | | | | and Healing [address] | Neurosurgery [address] | | | | | [address] Mailcode: | [address] | | | | | CH[facility] Center for | [place], [place] | | | | | Health and Healing, | [address] | | | | | Building 1, 8th | | | | | | Floor [place], [place] | | | | | | [address] | | | | | | [phone] | | | +--------+ + + + [...]
--- OUTSIDE RECORDS SUMMARY | ~2020-05-29 | XMS | Encounter Summary ---
Demographics + + + | Address | [address] | | | [place] [address] | + + + | Home Phone [...] + + + | Author | [place] gumi [facility] | + + + | Organization | [facility] [employer] [facility] | + [...] Providers + +------+ + | Care Corporate Sales Representative Name | Role | Phone [...] Erroneous Encounter | | 2007 | | [place] for [facility] | [place] [facility] | - Disregard | | | | and Healing [address] | Neurosurgery [address] | | | | | [address] Mailcode: | [address] | | | | | [facility] Center for | [place], [place] | | | | | Health and Healing, | [address] | | | | | Building 1, 8th | | | | | | Floor [place], [place] | | | | | | [address] | | | | | | [phone] | | | +--------+ + + + [...]
--- OUTSIDE RECORDS SUMMARY | ~2020-05-29 | XMS | Encounter Summary ---
Demographics + + + | Address | [address] | | | [place] [address] | + + + | Home Phone [...] + + + | Author | [place] [employer] [facility] | + + + | Organization | [facility] Flaskon [facility] | + + [...] Providers + +------+ + | Care Lead Project Manager Name | Role | Phone | + +------+ + | Yeison Simms MD | PCP | Unavailable | + +------+ + Reason for Visit + + + | Reason | Comments | + + + | Refill Request | refill on [place] | + + + Encounter Details +--------+--------+ + + + | Date | Type | Department | Care Team | Description | +--------+--------+ + + + | 08/27/ | Refill | Neurosurgery at | Sam Pedroza MD | Refill Request | | 2007 | | [facility] [address] | [address] | (refill on [place]) | | | | Ave Mailcode: CH8N | [place], [place] | | | | | [facility] | [address] | | | | | and Healing, | [phone] | | | | | [facility] | | | | | | Floor [place], [place] | | | | | | [address] | | | | | | [phone] | | | +--------+--------+ + + + [...]
--- OUTSIDE RECORDS SUMMARY | ~2020-05-29 | XMS | Encounter Summary ---
Demographics + + + | Address | [address] | | | [place] [address] | + + + | Home Phone [...] + + | Author | [place] [employer]YE[employer] Science [facility] | + + + | Organization | [facility] [employer] [facility] [...] Providers + +------+ + | Care All Terrain Vehicle Racer Name | Role | Phone | + +------+ + | Brenden Benavides MD | PCP | | + +------+ + Encounter Details +--------+ + + + + | Date | Type | Department | Care Team | Description | +--------+ + + + + | 02/23/ | Telephone | [facility] | Brad Currie MD | | | 2006 | | [place] | | | | | | Neuro-Ophthalmology | | | | | | [address] [facility] | | | | | | Mailcode: PATTI | | | | | | [place] [address] | | | | | | [phone] | | | +--------+ + + + [...]
--- OUTSIDE RECORDS SUMMARY | ~2020-05-29 | XMS | Encounter Summary ---
Demographics + + + | Address | [address] | | | [place] [address] | + + + | Home Phone [...] + + + | Author | [place] [employer] [facility] | + + + | Organization | [facility] [employer] [facility] | + + + | Address | Unknown | + + + | Phone | Unavailable | + + + Support + + +---------+ + | Name | Relationship | Address | Phone | + + +---------+ + | Ruby Au | ECON | Unknown | | + + +---------+ + Care Team Providers + +------+ + | Care Patient Access Coordinator Name | Role | Phone | [...] | | | | | cerebri | [address] | | | | | | Procedures | Ave | | | | | | CONSULT TO | [place], [place] | | | | | | [facility] | [address] | | | | | | | Phone: | | | | | | | [phone] | | | | | | | Fax: | | | | | | | [phone] | | +--------+--------+ + + + + [...] Cerebri | | 2005 | Visit | [facility] | [address] | (Primary Dx) | | | | Rd Mailcode:OP14B | [place], [place] | | | | | [facility] | [address] | | | | | [place], [place] | [phone] | | | | | [address] | | | | | | [phone] | | | +--------+---------+ + + + [...] pressu re. Referral to Dr. Maloney in [place] where a lumboperitoneal shunt was placed and subsequently explanted due to infection and migration of the catheter tip from the peritoneal space. She feels that her symptoms were helped at the time of the placement of the shunt; the head aches and visual problems have worsened since shunt removal. She has opted to come to [facility] rather than to return to [place] based on travel convenience. Review of Systems: [...] brain without; Neuro-ophthalmology consultation. [facility] Plan of Treatment Not on [...] | | + +---------+ + + | [facility] DEPARTMENT OF | | | | | RADIOLOGY | | | | + +---------+ + + documented in this encounter Visit Diagnoses + + | Diagnosis | + + | Pseudotumor cerebri - Primary Benign intracranial hypertension | + + documented in this encounter
--- OUTSIDE RECORDS SUMMARY | ~2020-05-29 | XMS | Encounter Summary ---
Demographics + + + | Address | [address] | | | [place] [address] | + + + | Home Phone [...] Organization | [facility] | | [...] Team Providers + +------+ + | Care Charter Coordinator Name | Role | Phone | + +------+ + PCP | Unavailable | + +------+ + Encounter Details +--------+ + + + + | Date | Type | Department | Care Team | Description | +--------+ + + + + | 05/26/ | Hospital | [facility] | Alexa Bower DO | Infection of lumbar | | 2017 - | Encounter | [facility] [address] | [address] | spine (HCC); Type 2 | | | [address] | [place] [address] | diabetes mellitus | | 05/27/ | | [place], [place] | [phone] | without | | 2017 | | [address] | | complication, | | | | [phone] | | unspecified long | | | | | | term insulin use | | | | | | status ([facility]); | | | | | | History of drug | | | | | | abuse ([facility]); BMI | | | | | | 40.0-44.9, adult | | | | | | ([facility]); Back pain, | | | [...] 154 Date of Service: 05/27/171842 Status: Signed Archivist Military History: Reynold Garcia MD (Physician) I was informed [...] (none) Author Type: Registered Nurse Filed: 05/27/17 430 Date of Service: 05/27/171842 Status: Signed Archivist Military History: Mesha Brown RN (Registered Nurse) Pt anxious, [...] Date of Service: 05/27/17 1303 Status: Signed Archivist Military History: Mesha Brown RN (Registered Nurse) Went to pt room to put on bloodless medicine band and patient not in room/on floor. Mesha Brown RN 05/27/2017 1:03 PM onver ludwin Transaction, Provider Unknown - 05/27/2017 10:45 AM PDT Case Management by Da Goode RN at 05/27/17 1045 Author: Da Goode RN Service: (none) Author Type: Registered Nurse Filed: 05/27/17 1053 Date of Service: 05/27/17 1045 Status: Signed Archivist Military History: Da Goode RN (Registered Nurse) 05/27/17 1042 [...] Oriented Prior functional status independant Power of Community Service Specialist No Anticipated Discharge Plan Post Acute Care Needs None at this time Resources Financial concerns No Transportation issues No ( will transport) Patient/Family concerns No Prescription Plan Yes Name of Pharmacy [facility] in [place] [facility] phone number [phone] Previous home health equipment No Vascular access device No Ostomy/Drains/Appliances No Anticipated Disposition Facility Type Home Met with patient at bedside. Annabella is a 41 year old female with a history of anxiety/depre sssion, HTN, COPD, DM type 2, and IV drug use. She lives in [place] with her daughter 2 6, and 14 year old twins. Her is currently getting a new house ready for them to mov e into and is active in their lives. Annabella went to [facility] for pelvic pain and spotting but left AMA while waiting for MR I results because she couldn't smoke. The hospital called her and recommended her to go to [facility] based on the MRI results. Patient is independent in all ADL's. Because of the IV drug use, sending her home with an I V line is not recommended is she needs outpatient IV abx. Patient's PCP is: Virginia Reddy NP [facility] [employer] Coverage concerns:no Medication coverage/concerns: no Community resources utilized / needed: TBD Assistance in transportation: not at this time Identification of any specific education / training: TBD Barriers to Discharge / Alternative housing needed: not at this time Anticipated DCP: Home DA GOODE RN Case Management [phone] Andre Lay MD - 05/27/2017 9:46 AM PDT Progress Notes by Andre Alonso MD-R1 at 05/27/17 0946 Author: Andre Alonso MD-R1 Service: Hospitalist Author Type: Resident-Y1 Filed: 05/27/17 190 Date of Service: 05/27/17945 Status: Attested Archivist Military History: Andre Alonso MD-R1 (Resident-Y1) Cosigner: Reynold Garcia [...] hospitalization due to abuse p otential and superintendent terminal side effects. I anticipate that pt may not be happy during this hospi yuridia stay for this reason. I recommend risk management to see pt proactively. 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 [facility] Service: Hospitalist Progress Note Hospital Day: LOS: 0 days Post-Op Day: * No surgery found * SUBJECTIVE Patient Summary: the patient is a 41-year-old female with significant past medical h istory of type II diabetes, hypertension, gastroesophageal reflux disease, depression, IV dr hawa goldsmith who is a transfer from [facility] for further evaluation. Events Overnight: [...] was transferred from [facility] in [place], [place] for further evaluation of suspicious lumbar [...] 05/27/17635 Date of Service: 05/27/17633 Status: Signed Archivist Military History: Cathy Garcia RN (Registered Nurse) Contacted [facility]. Will fax over current microbiology GC test along with most current wound culture results. onver ludwin Transaction, Provider Unknown - 05/27/2017 5:15 AM PDT Progress Notes by Remy Trinidad RPH at 05/27/17514 Author: Remy Trinidad RPH Service: Pharmacy Author Type: Pharmacist Filed: 05/27/17514 Date of Service: 05/27/17514 Status: Signed Archivist Military History: Remy Trinidad RPH (Pharmacist) Note ccl 125.9ml/min meds reviewed Pharmacy will follow rdc 0515 docume nted in this encounter H&P Notes Tom Rae MD - 05/27/2017 2:41 AM PDT H&P by BERTRAM Boyer at 05/27/17240 Author: BERTRAM Boyer Service: Hospitalist Author Type: Resident-Y1 Filed: 05/27/17621 Date of Service: 05/27/17240 Status: Attested Addendum Archivist Military History: BERTRAM Boyer (Resident-Y1) Related Notes: Original Note by BERTRAM Boyer (Resident-Y1) filed at 05/27/17513 Cosigner: Alexa Bower DO at 06/21/17621 Attestation signed by Alexa Bower DO at 06/21/17621 (Updated) Chief complaint: Back Pain "I had an MRI and they told me there's fluid on my spine" Abdominal Pain Vaginal Bleeding Referral "the infectious disease doctor from [place] told me to come here to be admitted" Reason for admission: Possible paraspinal abscess Patient seen and evaluated independently. Patient denies saddle anesthesia. No suprapubic d istention or tenderness noted. Agree with above assessment, will recommend closely monitoring this patient for respiratory distress and use of narcotics for pain. [facility] Service: Hospitalist Admission History & [...] in her spine. She was seen at [facility] in [place] yesterday where she was being evaluated for [...] P ain improved with medications. Workup at [facility] revealed elevated CRP of 7.7, [...] of the right facet joint of L4-L5. [facility]'s ED physician spoke with Dr. Triston alcantara (ID) who recommended radiology guided sampling of fluid by IR as well as blood cultures . He called patient to advise her to come to [facility] for further evaluation. Patient uses IV he roin, last use was yesterday due to the pain. She states she is unsure if the needles she us es are clean. In the [facility] ED, patient found to be afebrile [...] back pain MRI lumbar spine performed at [facility] in [place] showed a subcentimeter rim-enhanci ng collection adjacent [...] drug abuse Currently using IV heroin. Consulted director case for assistance with drug rehabilitation. Type 2 [...] follow up urinalysis - G/C Aptima from [facility] pending, hospitalist to request results [...] 06/06/17921 Date of Service: 05/27/17617 Status: Addendum Archivist Military History: Kate Rangel MD (Physician) Related Notes: Original Note by Kate Rangel MD (Physician) filed at 06/06/17920 [facility] Service: Infectious Disease Initial Consult Note Date of Admission: 05/26/2017 Reason for Consultation: Concern for spine infection in a patient with history of IV drug use Requesting Physician: Dr. Alexa Bower, Hospitalist History Obtained From: patient, chart review CHIEF COMPLAINT: Back pain; prior evaluation at [facility] with MRI concer ns for spine infection HISTORY OF PRESENT ILLNESS The patient is a 41 y.o. 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 She denies history of [...] On 05/25, the patient was seen at [facility] in [place] for low back pain which she linda cribed as severe and pelvic pain. She has been having vaginal spotting; she has an IUD and described having normal period the prior month. The vaginal spotting reportedly has stopped but she is interested in seeing a GLAZING MACHINE OPERATOR. The low back pain is persistent, described [...] had been (informally) reviewed by Neurosurgery and [facility] Radiology does not think there is enough [...] normal menstruation in the past month. Suggest OB-GLAZING MACHINE OPERATOR refe rral as an outpatient. Case had been discussed with ER physician at [facility] and with Dr. Garcia, her [...] 05/27/17313 Date of Service: 05/27/17313 Status: Signed Archivist Military History: Kenya Zavala RN (Registered Nurse) Dr Bower at pt BS Kenya Zavala RN 05/27/17313 d Mcknight MD - 05/27/2017 12:26 AM PDT ED Provider Notes by Ed Toney DO at 05/27/17 002 Author: Ed Toney DO Service: Emergency Department Author Type: Physician Filed: 05/27/17 0443 Date of Service: 05/27/1725 Status: Signed Archivist Military History: Ed Toney DO (Physician) [facility] Department of Emergency Medicine 12:26 [...] Bleeding Referral "the infectious disease doctor from [place] told me to come here to be [...] vaginal bleeding. Patient was seen in the [place] ED 3 days ago for vagina l bleeding, where she was found to have a "pocket of fluid in my spine." Patient became upse t, then left the facility AMA. She was then called today with her results, and advised to co me to [facility] ED for further evaluation/admission. The patient has [...] and was advised to come to the [facility] ED for admission and treatment of possible abscess of spine. Dr. Rangel is aware of patient's case and is requesting three sets of blood cul tures and admission. Will order labs, and reevaluate. Will also obtain MRI report. 2:25 AM Reviewed patient's records which were sent from [facility] in [place]. 2:34 AM Discussed patient's case with Dr. [...] reviewed (Using the electronic record system of [facility], I car efully reviewed the records with regard to the past medical/surgical history, previous medic ations, and allergies). Nursing notes reviewed for chief complaint, medications, clinical presentation and vital si gns Laboratory Evaluation Results Procedure Component Value Ref Range Date/Time Drugs of Abuse Screen, UR Hospital and ED Only [[id number]] Order Status: Sent Specimen Information: Urine, Clean Catch Cardiac Panel [[id number]] (Abnormal) Collected: 05/27/17315 Order Status: Completed Updated: [...] Index UNABLE TO CALCULATE Sedimentation Rate (ESR) [[id number]] (Abnormal) Collected: 05/27/17315 Order Status: Completed Specimen Information: Blood Updated: 05/27/17357 ESR 23 (H) 0 - 20 mm/Hr Lactic acid [[id number]] Collected: 05/27/17316 Order Status: Completed Specimen Information: Blood Updated: 05/27/17348 LACTIC ACID 0.4 0.4 - 2.0 mmol/L C-Reactive Protein [[id number]] (Abnormal) Collected: 05/27/17315 Order Status: Completed Specimen Information: Blood Updated: 05/27/17347 CRP 1.7 (H) <0.5 mg/dL Blood culture, set 2 [[id number]] Collected: 05/27/17317 Order Status: Sent Specimen Information: Blood from Blood Updated: 05/27/17322 Blood Culture Set 1 [[id number]] Collected: 05/27/17314 Order Status: Sent Specimen Information: Blood from Blood Updated: 05/27/17320 Urinalysis (reflex to microscopic/reflex to culture) [[id number]] (Abnormal) Collected: 05/27/17199 Order Status: Completed Specimen Information: Urine, Clean Catch Updated: 05/27/17 23 COLOR UA RED CLARITY CLEAR Specific Nelson, UA 1.005 1.002 - 1.030 LEUKOCYTE ESTERASE [...] without complication, unspecified superintendent terminal insulin use status (H CC) History of [...] recognition system. The possibility of "sound alike" production planner errors, addition and/or deletions may occur. If [...] 05/27/176 Date of Service: 05/27/173 Status: Signed Archivist Military History: Kenya Zavala RN (Registered Nurse) "3 Days [...] 05/27/17805 Date of Service: 05/27/17805 Status: Signed Archivist Military History: Mesha Brown RN (Registered Nurse) Problem: Pain [...] NEGATIVE Testing | | | performed at [facility];[address] [place] [address];[place] [address] | | + + + + +---------+ [...] | | | Fingerstick | performed at [facility];[address] | | LAB | | | | [address];[place], [place] | | | | | | [address] | | | | + + + [...] | | | Fingerstick | performed at [facility];[address] | | LAB | | | | [address];[place], [place] | | | | | | [address] | | | | + + + [...] - 1.030 | EXTERNAL | | | Nelson, | | | LAB | | | [...] | | l squamous | performed at [facility], [address] | | LAB | | | epithelia, | [address], | | | | | UA | [place] [address] | | | | + + + [...] | | | Patient | performed at [facility];[address] | | LAB | | | | [address];[place], [place] | | | | | | [address] | | | | + + + [...] | | | | performed at [facility];[address] | | | | | | [facility];[place], [place] | | | | | | [address] | | | | + + + [...] | | | Basophils | performed at [facility], [address] | K/uL | LAB | | | | [address], | | | | | | [place] [address] | | | | + + + [...] EXTERNAL | | | | performed at [facility], [address] | | LAB | | | | [address], | | | | | | [place] [address] | | | | + + + [...] | | | | | [place] [address] | | | | + + + [...] + + | Hemoglobin | 5.7Comment: The [place]ian | 4.0 - 6.0 % | EXTERNAL [...] | | | | | performed at [facility], [address] | | | | | | [address], | | | | | | [place] [address] | | | | + + + [...] | | | | | | at [facility], [address] | | | | | | [facility], | | | | | | [place] [address] | | | | + + + [...] | | | Fingerstick | performed at [facility];[address] | | LAB | | | | [address] Hammer;[place] | | | | | | [address] | | | | + + + [...] | | | | performed at [facility];[address] | | | | | | [address];[place], [place] | | | | | | [address] | | | | + + + [...] | | | | performed at [facility];[address] | mmol/L | LAB | | | | [address] Hammer;[place], [place] | | | | | | [address] | | | | + + + [...] at | | | | | | [facility];[address] | | | | [address];[place] [address] | | | | + + + [...] | | | | performed at [facility] | | LAB | | | | [address]rey[address] Hammer;[place] | | | | | | [address] | | | | + + + [...] | | | | performed at [facility] | | LAB | | | | Nereyda [facility];[place], [place] | | | | | | [address] | | | | + + + [...] | | | QUALITATIVE | performed at [facility] | | LAB | | | | [address];[place], [place] | | | | | | [address] | | | | + + + [...] - 1.030 | EXTERNAL | | | Nelson, | | | LAB | | | [...] | | | Cells | performed at [facility];[address] | | LAB | | | | [address];[place] | | | | | | [address] | | | | + + + [...] Type 2 diabetes mellitus without complication, unspecified half-way insulin use | | status | + + | History of drug abuse (HCC) Other, mixed, or unspecified nondependent drug abuse, in | | remission | + + | BMI 40.0-44.9, adult ([facility]) Body Mass Index 40.0-44.9, adult | + + | Back pain, unspecified back location, unspecified back pain laterality, unspecified | | chronicity | + + documented in this encounter
--- OUTSIDE RECORDS SUMMARY | ~2020-05-29 | XMS | Encounter Summary ---
Demographics + + + | Address | [address] | | | [place] [address] | + + + | Home Phone [...] + + | Author | [place] [employer] [facility] | + + + | Organization | [facility] [employer] [facility] | + [...] Team Providers + +------+ + | Care Mechanic'S Assistant Name | Role | Phone | [...] | | | Ave Mailcode: CH8N | [place], [place] | | | | | [facility] | [address] | | | | | and Healing, | [phone] | | | | | [facility] | | | | | | Floor [place], [place] | | | | | | [address] | | | | | | [phone] | | | +--------+ + + + [...]
--- OUTSIDE RECORDS SUMMARY | ~2020-05-29 | XMS | Encounter Summary ---
Demographics + + + | Address | [address] | | | [place] [address] | + + + | Home Phone [...] + + + | Author | [place] [employer] [facility] | + + + | Organization | [facility] [employer] [facility] | [...] + +------+ + | Care Community Relations Assistant Name | Role | Phone | [...] | | | Ave Mailcode: [address] | [place], [place] | | | | | [facility] | [address] | | | | | and Healing, | [phone] | | | | | [facility] | | | | | | Floor [place], [place] | | | | | | [address] | | | | | | [phone] | | | +--------+ + + + [...]
--- OUTSIDE RECORDS SUMMARY | ~2020-05-29 | XMS | Encounter Summary ---
Demographics + + + | Address | [address] | | | [place] [address] | + + + | Home Phone [...] + + + | Author | [place] [employer] [facility] | + + + | Organization | [facility] [employer] [facility] | [...] Providers + +------+ + | Care Heavy Machinery Assembler Name | Role | Phone | [...] | | | [facility] | [place], [place] | | | | | Health and Healing, | [address] | | | | | Building 1, [address]th | | | | | | Floor [place], [place] | | | | | | [address] | | | | | | [phone] | | | +--------+ + + + [...]
--- OUTSIDE RECORDS SUMMARY | ~2020-05-29 | XMS | Encounter Summary ---
Demographics + + + | Address | [address] | | | [place] [address] | + + + | Home Phone [...] Organization | [facility] | [...] Providers + +------+ + | Care Conference Services Coordinator Name | Role | Phone | + +------+ + PCP | Unavailable | + +------+ + Encounter Details +--------+ + + + + | Date | Type | Department | Care Team | Description | +--------+ + + + + | 05/25/ | Hospital [facility] | | | | [facility] | Encounter | [facility] | | | | | | HEALTH [facility] [address] | | | | | | [place], | | | | | | [place] [address] | | | | | | [phone] | | | +--------+ + + + [...]
--- OUTSIDE RECORDS SUMMARY | ~2020-05-29 | XMS | Encounter Summary ---
Demographics + + + | Address | [address] | | | [place] [address] | + + + | Home Phone [...] + + + | Author | [place] [employer] [facility] | + + + | Organization | [facility] [employer] [facility] | + [...] Providers + +------+ + | Care Truck Repair Service Estimator Name | Role | Phone | + +------+ + | Brenden Benavides MD | PCP | | + +------+ + Encounter Details +--------+ + + + + | Date | Type | Department | Care Team | Description | +--------+ + + + + | 02/07/ | Procedure - | Digestive Health | Record, Operation | Operative Report | | 2006 | | [place] at [facility] 8607 | | | | | Transcribed | [address] | | | | | | Mailcode: Center | | | | | | for Health and | | | | | | Healing, [facility] 2 | | | | | | [place], [place] | | | | | | [address] | | | | | | [phone] | | | +--------+ + + + [...] | 02/07/2007 12:00 AM PDT | | [id number] | | [id number] PAT [place] [id number] | | | | Date: 02/07/2007 | | | | Attending Surgeon: Hay Hughes M.D. | | | | Editing Internship(s): Pascual Bermudez M.D. | | | | [...] and medial orbital | | septum. The warehouse administrative assistant retracted the orbital fat bag [...] | | KYM / LANETTE | | [id number] / [id number] / [id number] / 45522 | | | | | | | | cc: | | | | | | Brad Currie M.D. | | [facility] | | | | | | Brenden Benavides M.D. | | [facility] | | [address] [facility] [address] | | [place] [address] | | | | | | Electronically signed by Hay Hughes 02-12-2007 05:13:05 PM | | | | | + + documented in this encounter Visit Diagnoses Not on filedocumented in this encounter"
--- OUTSIDE RECORDS SUMMARY | ~2020-05-29 | XMS | Encounter Summary ---
Demographics + + + | Address | [address] | | | [place] [address] | + + + | Home Phone [...] + + + | Author | [place] [employer] [facility] | + + + | Organization | [facility] [employer] [facility] [...] Providers + +------+ + | Care Quality Cloth Tester Name | Role | Phone | [...] Cerebri | | 2006 | Visit | [place] | | (Primary Dx) | | | | Neuro-Ophthalmology | | | | | | [address] [facility] | | | | | | Mailcode: PATTI | | | | | | [place] [address] | | | | | | [phone] | | | +--------+---------+ + + + [...] CASIMIRO PAYTON MD [address] [place] [address] Per [facility] chart note taken this morning by . Symptoms: Patient specific problem noted by patient: transient visual loss HPI: 31 y.o. year old female from [place] : Patient presents with: Transient visual loss [...] negative Pulmonary: negative GI: Problems due to senior living use of tylenol/ibuprofen. : negative Musculoskeletal: negative [...] Brad Currie MD Neuro-Ophthalmology and Cerebrovascular Disease Denitrator Operator of Ophthalmology, Neurology, and Neurosurgery documented [...]
--- OUTSIDE RECORDS SUMMARY | ~2020-05-29 | XMS | Encounter Summary ---
Demographics + + + | Address | [address] | | | [place] [address] | + + + | Home Phone [...] + + + | Author | [place] [employer] [facility] | + + + | Organization | [facility] Chegg[employer] [facility] | + [...] Providers + +------+ + | Care Inventory Analyst Name | Role | Phone | + +------+ + | Brenden Benavides MD | PCP | | + +------+ + Encounter Details +--------+ + + + + | Date | Type | Department | Care Team | Description | +--------+ + + + + | 02/22/ | Telephone | [facility] | Brad Currie MD | | | 2006 | | [place] | | | | | | Neuro-Ophthalmology | | | | | | [address] [facility] | | | | | | Mailcode: PATTI | | | | | | [place] [address] | | | | | | [phone] | | | +--------+ + + + [...]
--- OUTSIDE RECORDS SUMMARY | ~2020-05-29 | XMS | Encounter Summary ---
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 Visual Acuity: [facility] RE 20/20-1 LE 20/25-2 NI Pupil: [...]
--- OUTSIDE RECORDS SUMMARY | ~2020-05-29 | XMS | Encounter Summary ---
Demographics + + + | Address | [address] | | | [place] [address] | + + + | Home Phone [...] + + | Author | [place] [employer] [facility] | + + + | Organization | [facility] [employer] [facility] | [...] Team Providers + +------+ + | Care Gis Professor Name | Role | Phone | + +------+ + | Brenden Benavides MD | PCP | | + +------+ + Encounter Details +--------+ + + + + | Date | Type | Department | Care Team | Description | +--------+ + + + + | 02/23/ | Telephone | [facility] | Brad Currie MD | | | 2006 | | [place] | | | | | | Neuro-Ophthalmology | | | | | | [address] [facility] | | | | | | Mailcode: PATTI | | | | | | [place] [address] | | | | | | [phone] | | | +--------+ + + + [...]
--- OUTSIDE RECORDS SUMMARY | ~2020-05-29 | XMS | Encounter Summary ---
Demographics + + + | Address | [address] | | | [place] [address] | + + + | Home Phone [...] + + + | Author | [place] [employer] [facility] | + + + | Organization | [facility] | + [...] Providers + +------+ + | Care Restaurant Crew Name | Role | Phone | + [...] | | | [facility] | [address] | | | | | and Healing, | [place], [place] | | | | | Building | [address] | | | | | Floor [place], [place] | | | | | | [address] | | | | | | [phone] | | | +--------+---------+ + + + [...]
--- OUTSIDE RECORDS SUMMARY | ~2020-05-29 | XMS | Encounter Summary ---
Demographics + + + | Address | [address] | | | [place] [address] | + + + | Home Phone [...] + + + | Author | [place] [facility] | + + + | Organization | [facility] [employer] [facility] | + + + | Address | Unknown | + + + | Phone | Unavailable | + + + Support + + +---------+ + | Name | Relationship | Address | Phone | + + +---------+ + | Ruby Au | ECON | Unknown | | + + +---------+ + Care Team Providers + +------+ + | Care Bail Agent Name | Role | Phone | [...] Erroneous Encounter | | 2007 | | [facility] | [facility] | - Disregard | | | | and Healing [address] | Neurosurgery [address] | | | | | [address] Mailcode: | [address] | | | | | CH[facility] Center for | [place], [place] | | | | | Health and Healing, | [address] | | | | | Building 1, | | | | | | Floor [place], [place] | | | | | | [address] | | | | | | [phone] | | | +--------+--------+ + + + [...]
--- OUTSIDE RECORDS SUMMARY | ~2020-05-29 | XMS | Encounter Summary ---
Demographics + + + | Address | [address] | | | [place] [address] | + + + | Home Phone [...] + + + | Author | [place] [employer] Science [facility] | + + + | Organization | [facility] [employer] Sciences [facility] | + [...] Providers + +------+ + | Care Aboriginal Liaison Officer Name | Role | Phone [...] | | | Ave Mailcode: CH8N | [place], [place] | | | | | [facility] | [address] | | | | | and Healing, | [phone] | | | | | [facility] | | | | | | Floor [place], [place] | | | | | | [address] | | | | | | [phone] | | | +--------+---------+ + + + [...]
--- OUTSIDE RECORDS SUMMARY | ~2020-05-29 | XMS | Encounter Summary ---
Demographics + + + | Address | [address] | | | [place] [address] | + + + | Home Phone [...] | Organization | [facility] | [...] Providers + +------+ + | Care Hot Water Heater Installer Name | Role | Phone | [...] left hand | [address] | | | | n | Weakness of | [address] | [place], | | | | | both hands | [place], | [place] [address] | | | | | [place] left | [place] [address] | Phone: | | | | | wrist Pain | Phone: | [phone] | | | | | of right | [phone] | Fax: | | | | | thumb | Fax: | [phone] | | | | | Trigger | [phone] | | | | | | finger of | | | | | | | right thumb | | | | | | | Procedures | | | | | | | LA MOTOR | | | | | | | &/SENS > | | | | | | | NRV CNDJ | | | | | | | PRECONF | | | | | | | ELTRODE LIMB | | | | | | | LA NEEDLE | | | | | | [...] | Surgery | Pain of | Amanuel uY MD | Luís Waters MD | | | Required | | right thumb | [address] | | | | | Trigger | [address] | [place] Kirk | | | | | finger of | [place], | [place] | | | | | right thumb | [place] [address] | [address] | | | | | | Phone: | Phone: | | | | | | [phone] | [phone] | | | | | | Fax: | Fax: | | | | | | [phone] | [phone] | +--------+ + + + + + [...] | | Rehabilitatio | tunnel | 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[address] | | | | n | syndrome on | | [place], | | | | | left | [place] | [place] [address] | | | | | | WAY | Phone: | | | | | | [place], | [phone] | | | | | | [place] [address] | Fax: | | | | | | Phone: | [phone] | | | | | | [phone] | | | | | | | Fax: | | | | | | | [phone] | | +--------+--------+ + + + + Encounter Details +--------+---------+ + + + | Date | Type | Department | Care Team | Description | +--------+---------+ + + + | 01/03/ | Office | [facility] [place] | Amanuel Jennings, | Numbness of left | | 2019 | Visit | PHYSIATRY [address] | MD [address] | hand (Primary Dx); | | | | [address] | [place] | Weakness of both | | | | [place] | [address] | hands; Mass of left | | | | [address] | | wrist; Pain of right | | | | [phone] | | thumb; Trigger | | | [...] encounter Patient Instructions Patient Instructions Adelaide Santa Dental Laboratory Supervisor - 01/03/2019 1:00 PM PSTContinue t o [...] back pain Antisocial personality disorder ([facility]) Anxiety disorder Asthma Benign essential hypertension Chronic back pain Chronic obstructive lung disease (HCC) Chronic posttraumatic stress disorder Depressive disorder Diabetes mellitus type 2 in obese (HCC) Gastroesophageal reflux disease Heroin dependence ([facility]) Hoarse Hypertensive disorder Insomnia with sleep apnea IV drug abuse ([facility]) Low back strain Numbness of left hand Obstructive sleep apnea of adult Opioid dependence on agonist therapy ([facility]) Other chronic pain Panic disorder without agoraphobia with severe panic attacks Polysubstance dependence ([facility]) Sedative, hypnotic or anxiolytic dependence, 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 4/5 hand roller inspector and mender on the left Reflexes: 2+ normal and [...] scribed by in my presence, Adelaide Santa, Dental Laboratory Supervisor and are both accurate and comp lete. [...]
--- OUTSIDE RECORDS SUMMARY | ~2020-05-29 | XMS | Encounter Summary ---
Demographics + + + | Address | [address] | | | [place] [address] | + + + | Home Phone [...] + + | Author | [place] Values of n Science [facility] | + + + | Organization | [facility] [...] Providers + +------+ + | Care Commercial Field Inspector Name | Role | Phone | [...] | | | Ave Mailcode: CH8N | [place], [place] | | | | | [facility] | [address] | | | | | and Healing, | [phone] | | | | | [facility] | | | | | | Floor [place], [place] | | | | | | [address] | | | | | | [phone] | | | +--------+---------+ + + + [...] wanted to have LP shunt instead of SOUND EFFECTS PERSON shunt because she d oes not weant [...]
--- OUTSIDE RECORDS SUMMARY | ~2020-05-29 | XMS | Encounter Summary ---
Demographics + + + | Address | [address] | | | [place] [address] | + + + | Home Phone [...] + + + | Author | [place] [employer] [facility] | + + + | Organization | [facility] [facility] | + + + | Address | Unknown | + + + | Phone | Unavailable | + + + Support + + +---------+ + | Name | Relationship | Address | Phone | + + +---------+ + | Ruby Au | ECON | Unknown | | + + +---------+ + Care Team Providers + +------+ + | Care Apple Thinner Name | Role | Phone | [...] Cerebri | | 2006 | Visit | Allison | | (Primary Dx) | | | | Neuro-Ophthalmology | | | | | | [address] [facility] | | | | | | Mailcode: PATTI | | | | | | [place] [address] | | | | | | [phone] | | | +--------+---------+ + + + [...] CASIMIRO PAYTON MD [address] [place] [address] Per [facility] chart note taken this morning by . Symptoms: Patient specific problem noted by patient: transient visual loss HPI: 31 y.o. year old female [place] : Patient presents with: Transient visual loss [...] negative Pulmonary: negative GI: Problems due to prison use of tylenol/ibuprofen. : negative Musculoskeletal: negative [...] Brad Currie MD Neuro-Ophthalmology and Cerebrovascular Disease Tying In Machine Operator of Ophthalmology, Neurology, and Neurosurgery [...]
--- OUTSIDE RECORDS SUMMARY | ~2020-05-29 | XMS | Encounter Summary ---
Demographics + + + | Address | [address] | | | [place] [...] + | Organization | [facility] | [...] Team Providers + +------+ + | Care Muck Hauler Name | Role | Phone | + +------+ + PCP | Unavailable | + +------+ + Encounter Details +--------+ + + + + | Date | Type | Department | Care Team | Description | +--------+ + + + + | 09/30/ | Hospital | [facility] | | | | 1991 | Encounter | MED CTR WOMENS | | | | | | HEALTH SV [address] | | | | | | [place], | | | | | | [place] [address] | | | | | | [phone] | | | +--------+ + + + [...]
--- OUTSIDE RECORDS SUMMARY | ~2020-05-29 | XMS | Encounter Summary ---
Demographics + + + | Address | [address] | | | [place] [address] | + + + | Home Phone [...] + + | Author | [place] [employer] [facility] | + + + | Organization | [facility] [employer] [facility] | + + + | Address | Unknown | + + + | Phone | Unavailable | + + + Support + + +---------+ + | Name | Relationship | Address | Phone | + + +---------+ + | Ruby Au | ECON | Unknown | | + + +---------+ + Care Team Providers + +------+ + | Care Velvet Weaver Name | Role | Phone | [...] | | | Ave Mailcode: CH8N | [place], [place] | | | | | [facility] | [address] | | | | | and [place], | [phone] | | | | | [facility] | | | | | | Floor [place], [place] | | | | | | [address] | | | | | | [phone] | | | +--------+ + + + [...]
--- OUTSIDE RECORDS SUMMARY | ~2020-05-29 | XMS | Encounter Summary ---
Demographics + + + | Address | [address] | | | [place] [address] | + + + | Home Phone [...] + + | Author | [place] [employer] [facility] | + + + | Organization | [facility] [employer] [facility] | + [...] Providers + +------+ + | Care Warehouse Consultant Name | Role | Phone | [...] Telephone follow-up | | 2015 | | [facility] | [address] | | | | | Neuro-Ophthalmology | [place], [place] | | | | | at [facility] [address] | [address] | | | | | Ave Mailcode: [facility] | [phone] | | | | | [facility] | | | | | | and [place], | | | | | | | | | | | | Floor [place], [place] | | | | | | [address] | | | | | | [phone] | | | +--------+ + + + [...]
--- OUTSIDE RECORDS SUMMARY | ~2020-05-29 | XMS | Encounter Summary ---
Demographics + + + | Address | [address] | | | [place] [address] | + + + | Home Phone [...] Organization | [facility] [...] Team Providers + +------+ + | Care 411 Directory Assistance Operator Name | Role | Phone | + +------+ + PCP | Unavailable | + +------+ + Encounter Details +--------+ + + + + | Date | Type | Department | Care Team | Description | +--------+ + + + + | 08/16/ | Hospital | [facility] | | | | 1990 | Encounter | MED CTR EMERGENCY | | | | | | CENTER [address] | | | | | | [place] | | | | | | [address] | | | | | | [phone] | | | +--------+ + + + [...]
--- OUTSIDE RECORDS SUMMARY | ~2020-05-29 | XMS | Encounter Summary ---
Demographics + + + | Address | [address] | | | [place] [address] | + + + | Home Phone [...] | [facility] | [...] Providers + +------+ + | Care Record Changer Tester Name | Role | Phone | + +------+ + PCP | Unavailable | + +------+ + Encounter Details +--------+ + + + + | Date | Type | Department | Care Team | Description | +--------+ + + + + | 09/27/ | Hospital | [facility] | | | | 1991 | Encounter | MED CTR [facility] | | | | | | HEALTH SV [address] | | | | | | [place], | | | | | | [place] [address] | | | | | | [phone] | | | +--------+ + + + [...]
--- OUTSIDE RECORDS SUMMARY | ~2020-05-29 | XMS | Encounter Summary ---
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 Visual Acuity: [facility] RE 20/20-1 LE 20/25-2 NI Pupil: [...]
--- OUTSIDE RECORDS SUMMARY | ~2020-05-29 | XMS | Encounter Summary ---
Demographics + + + | Address | [address] | | | [place] [address] | [...] + + + | Author | [place] [employer] [facility] | + + + | Organization | [facility] [employer] [facility] [...] Team Providers + +------+ + | Care Outreach Worker Name | Role | Phone [...] | | | | | | | [facility] | | | | | | | Hospital | | | | | | | [place], [place] | | | | | | | [address] | | | | | | | Phone: | | | | | | | [phone] | | | | | | | Fax: | | | | | | | [phone] | +--------+--------+ + + + + Encounter Details +--------+ + + + + | Date | Type | Department | Care Team | Description | +--------+ + + + + | 05/07/ | Hospital | [facility] [address] | [place], | | | 2007 | Encounter | [address] | MD [place] | | | | | [facility] | MD Holden,PhD | | | | | [place] | | | | | | [address] | | | | | | [phone] | | | +--------+ + + + [...] Dennis, | | | | | | M.D.Information Systems Supervisor surgeon: . | | | | [...] | | | | | cervical region, BRUNEIAN and | | | | | | [...] | | | | | | vein with6-[place] Env[place] | | | | | | [...] artery. | | | | | | K0Vcauhy Berenstein | | | | | | [...] | | | | | with a 6-[place] Envoy | | | | | | [...]
--- OUTSIDE RECORDS SUMMARY | ~2020-05-29 | XMS | Encounter Summary ---
Demographics + + + | Address | [address] | | | [place] [address] | + + + | Home Phone [...] + | Organization | [facility] | | [...] Team Providers + +------+ + | Care Notcher Name | Role | Phone | + +------+ + PCP | Unavailable | + +------+ + Encounter Details +--------+ + + + + | Date | Type | Department | Care Team | Description | +--------+ + + + + | 01/27/ | Hospital | [facility] | [place] | | | 2011 - | Encounter | MED CTR EMERGENCY | DO Gaurang Drake | | | | | [address] | [place], [place] | | | 01/28/ | | [place], [place] | [address] | | | 2011 | | [address] | | | | | | [phone] | | | +--------+ + + + [...] her discharge instructions with referral to a solar sales manager for the rash, as well as a prescription for tramadol, including a home pack of it, and some Zofran. She walked out before evaluation was complete . Therefore, please add to the discharge diagnosi s, left before evaluation complete. DICTATED BY: Vern Carlin M.D. Emergency Medicine JOB #: [id number] EXT JOB #:[id number] <Electronicall y Signed by Vern Carlin MD> 02/07/12 0734 Vern Carlin MD - 01/28/2012 10:55 PM PSTDATE: 01/28/2012 CHIEF COMPLAINT: Headache and rash. HISTORY OF PRESENT ILLNESS: Annabella is a 36-year-old female, states she has had what sounds like a michelle tricular or a STRAPPING MACHINE TENDER shunt placed for hydrocephalus several years ago. [...] want to go to the ER in [place], as she has had bad experience with [...] Vern Carlin M.D. Emergency Medicine JOB #: [id number] EXT JOB #:[id number] <Electronicall y Signed by Vern Carlin MD> [...] Performed At | + + + | [facility] Diagnostic Imaging Department | [place] | | [address] | [facility] | | UNENHANCED HEAD CT, [...] COMMUNICATED TO THE ER STAFF BY [facility] RADIOLOG IST ON | | | 01/29/2012 AT 0003 HOURS. Dictated Date/Time: 01/29/2012 09:41 | | | Transcribed Date/Time: 01/29/2012 09:47 Tip Out Worker: | | | <Electronically Signed by Ivan Smalls MD> 01/29/12 1606 | | + + + + + | Procedure Note | + + | Neal, Rad Conversion - 01/04/2014 4:[address] [facility] | | Diagnostic Imaging Department [address] [place] [address] | | UNENHANCED HEAD CT, 01/28/2012, 2342 [...] THE ER STAFF BY | | [facility] ON 01/29/2012 AT 0003 HOURS. Dictated [...] 09:41 | |Transcribed Date/Time: 01/29/2012 09:47 | |Tip Out Worker: | |<Electronically Signed by Ivan Smalls MD> 01/29/12 1606 | + + + +---------+ + + | Performing | Address | City/State/Zipcode | Phone Number | | Organization | | | | + +---------+ + + | [place] | | | | | [facility] | | | | + +---------+ + + documented in this encounter Visit Diagnoses Not on filedocumented in this encounter"
--- OUTSIDE RECORDS SUMMARY | ~2020-05-29 | XMS | Encounter Summary ---
Demographics + + + | Address | [address] | | | [place] [address] | + + + | Home Phone [...] Organization | [facility] | [...] Providers + +------+ + | Care Team Assembly Line Machine Operator Name | Role | Phone | + +------+ + PCP | Unavailable | + +------+ + Encounter Details +--------+ + + + + | Date | Type | Department | Care Team | Description | +--------+ + + + + | 08/10/ | Hospital | [facility] | | | | 1990 | Encounter | MED CTR EMERGENCY | | | | | | CENTER [address] | | | | | | [place] | | | | | | [address] | | | | | | [phone] | | | +--------+ + + + [...]
--- OUTSIDE RECORDS SUMMARY | ~2020-05-29 | XMS | Encounter Summary ---
Demographics + + + | Address | [address] | | | [place] [address] | + + + | Home Phone [...] + + | Author | [place] Cleo Science [facility] | + + + | Organization | [facility] [employer] [employer] Science [facility] [...] Team Providers + +------+ + | Care Discharge Coordinator Name | Role | Phone | [...] | | | Ave Mailcode: CH8N | [place], [place] | | | | | [facility] | [address] | | | | | and Healing, | [phone] | | | | | [facility] | | | | | | Floor [place], [place] | | | | | | [address] | | | | | | [phone] | | | +--------+ + + + [...]
--- OUTSIDE RECORDS SUMMARY | ~2020-05-29 | XMS | Encounter Summary ---
Demographics + + + | Address | [address] | | | [place] [address] | + + + | Home Phone [...] + | Organization | [facility] | | [...] Team Providers + +------+ + | Care Soaker Soda Worker Name | Role | Phone | + +------+ + PCP | Unavailable | + +------+ + Encounter Details +--------+ + + + + | Date | Type | Department | Care Team | Description | +--------+ + + + + | 10/12/ | Hospital | [facility] | | | | 1991 | Encounter | MED CTR WOMENS | | | | | | HEALTH SV [address] | | | | | | [place], | | | | | | [place] [address] | | | | | | [phone] | | | +--------+ + + + [...]
--- OUTSIDE RECORDS SUMMARY | ~2020-05-29 | XMS | Clinical Summary ---
Demographics + + + | Address | [address] | | | [place] [address] | + + + | Home Phone [...] Providers + +------+ + | Care Project Reservoir Engineer Name | Role | Phone | + +------+ + | Dennis Maddox | PCP | | + +------+ + Source Comments REBE[facility] is fully live on both [facility] Ambulatory and [facility] InPatient.[facility] Allergies + + + [...] | | | + +--------+ +--------+-------+---------+--------+ | UX SPECIALIST MEDICAID | UX SPECIALIST | [id number] | 11/28/19 | | | [...] | 1975 | [phone] | [place] [address] | | | rene | | | 0 (Home) | | + +--------+ +--------+ + + Advance Directives + + + + + | Type | Date Recorded | Patient | Explanation | | | | Stummel Selector | | + + + + + | Advance | | | | | Directives and | | | | | Living Will | | | | + + + + + | Power of | | | | | Cardroom Supervisor | | | | + + [...]
--- OUTSIDE RECORDS SUMMARY | ~2020-05-29 | XMS | Encounter Summary ---
Demographics + + + | Address | [address] | | | [place] [address] | + + + | Home Phone [...] + + | Author | [place] Frontier pte Science [facility] | + + + | Organization | [facility] Hiveoo Science [facility] | + [...] Providers + +------+ + | Care Certified Control Systems Technician Name | Role | Phone | [...] Refill Request | | 2012 | | [place]/Ophthalmol | MD Perry | | | | | ramonjaneen at [facility] [address] | | | | | | [address] Mailcode: | | | | | | CH11P [facility] | | | | | | Health and Healing, | | | | | | [facility] | | | | | | Floor [place], [place] | | | | | | [address] | | | | | | [phone] | | | +--------+--------+ + + + [...]
--- OUTSIDE RECORDS SUMMARY | ~2020-05-29 | XMS | Encounter Summary ---
Demographics + + + | Address | [address] | | | [place] [address] | + + + | Home Phone [...] + + + | Author | [place] K[employer] [facility] | + + + | Organization | [facility] Health Catalyst Science [facility] | [...] Team Providers + +------+ + | Care Produce Shipper Name | Role | Phone | + +------+ + | Pedro Luis Sams MD | PCP | | + +------+ + Encounter Details +--------+ + + + + | Date | Type | Department | Care Team | Description | +--------+ + + + + | 10/19/ | Telephone | [facility] | Funmilayo Osorio MD | | | 2010 | | [place]/Ophthalmol | [address] | | | | | [place] at [facility] [address] | [place], [place] | | | | | [address] Mailcode: | [address] | | | | | CH11P [facility] | [phone] | | | | | Health and Healing, | | | | | | [facility] | | | | | | [place], [place] | | | | | | [address] | | | | | | [phone] | | | +--------+ + + + [...]
--- OUTSIDE RECORDS SUMMARY | ~2020-05-29 | XMS | Encounter Summary ---
Demographics + + + | Address | [address] | | | [place] [address] | + + + | Home Phone [...] + + + | Author | [place] [employer] Science [facility] | + + + | Organization | [facility] Piki Science [facility] | [...] Team Providers + +------+ + | Care Mission Planner Name | Role | Phone | [...] | | | | | hypertension | [place], [place] | [place], [place] | | | | | Procedures | [address] | [address] | | | | | REQUEST TO | Phone: | Phone: | | | | | SURGERY | [phone] | [phone] | | | | | CARTON MAKER | Fax: | Fax: | | | | | [place] INSTALL | [phone] | [phone] | | | | | SPINAL | [...] | | Ave Mailcode: CH8N | [place], [place] | | | | | [facility] | [address] | | | | | and [place], | [phone] | | | | | [facility] | | | | | | Floor [place], [place] | | | | | | [address] | | | | | | [phone] | | | +--------+ + + + [...]
--- OUTSIDE RECORDS SUMMARY | ~2020-05-29 | XMS | Encounter Summary ---
Demographics + + + | Address | [address] | | | [place] [address] | + + + | Home Phone [...] + + | Author | [place] Isentropic Science [facility] | + + + | Organization | [facility] ClipMine Science [facility] | + [...] Providers + +------+ + | Care Warehouse Administrator Name | Role | Phone | [...] | | | REFERRAL TO | | [place], [place] | | | | | NEUROINTERVE | | [address] | | | | | NTIONAL | | Phone: | | | | | RADIOLOGY | | [phone] | | | | | PRACTICE | | Fax: | | | | | | | [phone] | +--------+--------+ + + + + Reason [...] Dx) | | | | Mailcode:OP14B | [place], [place] | | | | | Outpatient Clinic | [address] | | | | | Building [place], | [phone] | | | | | [place] [address] | | | | | | [phone] | | | +--------+---------+ + + + [...] resident s note. CASIMIRO PAYTON MD NEUROSURGERY [facility] [place] [address] Pascual Ballard - 12:00 PM [...] spots" and "tunnel vision." Last saw an velvet weaver in [facility] 2 months ago. Reportedl y, this showed [...] Patient was also given a prescription for [place] for CAPONE until she establishs care with [...]
--- OUTSIDE RECORDS SUMMARY | ~2020-05-29 | XMS | Encounter Summary ---
Demographics + + + | Address | [address] | | | [place] [address] | + + + | Home Phone [...] + + + | Author | [place] Gliknik Science [facility] | + + + | Organization | [facility] Sensorberg [employer] Science [facility] [...] Team Providers + +------+ + | Care Holder Pile Driving Name | Role | Phone | + [...] | | | | | | | [address] | | | | | | [phone] | | | +--------+ + + + [...]
--- OUTSIDE RECORDS SUMMARY | ~2020-05-29 | XMS | Encounter Summary ---
Demographics + + + | Address | [address] | | | [place] [address] | + + + | Home Phone [...] + + + | Author | [place] Smart Media In[employer] Science [facility] | + + + | Organization | [facility] Solar Nation Science [facility] | + [...] Providers + +------+ + | Care Sales Program Coordinator Name | Role | Phone [...] | | | | | hypertension | [place], [place] | [place], [place] | | | | | Procedures | [address] | [address] | | | | | REQUEST TO | Phone: | Phone: | | | | | SURGERY | [phone] | [phone] | | | | | [employer] | Fax: | Fax: | | | | | [place] INSTALL | [phone] | [phone] | | | | | SPINAL | [...] | | | Ave Mailcode: CH8N | [place], [place] | | | | | [facility] | [address] | | | | | and [place], | [phone] | | | | | [facility] | | | | | | Floor [place], [place] | | | | | | [address] | | | | | | [phone] | | | +--------+ + + + [...]
--- OUTSIDE RECORDS SUMMARY | ~2020-05-29 | XMS | Encounter Summary ---
Demographics + + + | Address | [address] | | | [place] [address] | [...] + + + | Author | [place] oboxo Science [facility] | + + + | Organization | [facility] Cordium Links Science [facility] [...] Team Providers + +------+ + | Care Soaping Department Supervisor Name | Role | Phone [...] Sandra | | | | | | [facility] | | | | | | [place], [place] | | | | | | [address] | | | | | | [phone] | | | +--------+ + + + [...]
--- OUTSIDE RECORDS SUMMARY | ~2020-05-29 | XMS | Encounter Summary ---
Demographics + + + | Address | [address] | | | [place] [address] | + + + | Home Phone [...] + + + | Author | [place] [employer] [facility] | + + + | Organization | [facility] Quant the News [facility] | + + + | Address | Unknown | + + + | Phone | Unavailable | + + + Support + + +---------+ + | Name | Relationship | Address | Phone | + + +---------+ + | Ruby Au | ECON | Unknown | | + + +---------+ + Care Team Providers + +------+ + | Care Load Manager Name | Role | Phone | [...] | | | Ave Mailcode: CH8N | [place], [place] | Encounters | | | | [facility] | [address] | | | | | and [place], | [phone] | | | | | [facility] | | | | | | Floor [place], [place] | | | | | | [address] | | | | | | [phone] | | | +--------+ + + + [...]
--- OUTSIDE RECORDS SUMMARY | ~2020-05-29 | XMS | Encounter Summary ---
Demographics + + + | Address | [address] | | | [place] [address] | + + + | Home Phone [...] + + + | Author | [place] Beyond Credentials Science [facility] | + + + | Organization | [facility] CurrencyBird Science [facility] [...] Providers + +------+ + | Care Product Promoter Sales Person Name | Role | Phone | + +------+ + | Brenden Benavides MD | PCP | | + +------+ + Encounter Details +--------+ + + + + | Date | Type | Department | Care Team | Description | +--------+ + + + + | 09/28/ | Documentati | [facility] | Brad Currie MD | | | 2006 | on | [place] | | | | | | Neuro-Ophthalmology | | | | | | [address] | | | | | | Mailcode: PATTI | | | | | | [place] [address] | | | | | | [phone] | | | +--------+ + + + [...]
--- OUTSIDE RECORDS SUMMARY | ~2020-05-29 | XMS | Encounter Summary ---
Demographics + + + | Address | [address] | | | [place] [address] | + + + | Home Phone [...] | [facility] | | [...] Providers + +------+ + | Care Soil Biology Teacher Name | Role | Phone | + +------+ + PCP | Unavailable | + +------+ + Encounter Details +--------+ + + + + | Date | Type | Department | Care Team | Description | +--------+ + + + + | 06/10/ | Hospital | [facility] | | | | 1991 | Encounter | MED CTR WOMENS | | | | | | HEALTH SV [address] | | | | | | [place], | | | | | | [place] [address] | | | | | | [phone] | | | +--------+ + + + [...]
--- OUTSIDE RECORDS SUMMARY | ~2020-05-29 | XMS | Encounter Summary ---
Demographics + + + | Address | [address] | | | [place] [address] | + + + | Home Phone [...] + + + | Author | [place] The Resumator Science [facility] | + + + | Organization | [facility] Vital Therapies Science [facility] | + [...] Providers + +------+ + | Care Processing Inspector Name | Role | Phone | [...] | | | | | CH8N | [place], [place] | | | | | Health and Healing, | [address] | | | | | Building [address], [address]th | | | | | | Floor [place], [place] | | | | | | [address] | | | | | | [phone] | | | +--------+ + + + [...]
--- OUTSIDE RECORDS SUMMARY | ~2020-05-29 | XMS | Encounter Summary ---
Demographics + + + | Address | [address] | | | [place] [address] | + + + | Home Phone [...] + + + | Author | [place] [employer]ch[employer] [facility] | + + + | Organization | [facility] Calvin Science [facility] | + [...] Team Providers + +------+ + | Care Cellophane Tester Name | Role | Phone | [...] Erroneous Encounter | | 2007 | | [place] for [facility] | [place] [facility] | - Disregard | | | | and Healing [address] | Neurosurgery [address] | | | | | [address] Mailcode: | [address] | | | | | CH8N Center for | [place], [place] | | | | | Health and Healing, | [address] | | | | | Building [address]th | | | | | | Floor [place], [place] | | | | | | [address] | | | | | | [phone] | | | +--------+ + + + [...]
--- OUTSIDE RECORDS SUMMARY | ~2020-05-29 | XMS | Encounter Summary ---
Demographics + + + | Address | [address] | | | [place] [address] | + + + | Home Phone [...] | Organization | [facility] | [...] Team Providers + +------+ + | Care Sack Keeper Name | Role | Phone | + [...] [address] | | | | | [place] [address] | [facility] | | | | | [place] | [place] [address] | | | | | [address] | [phone] | | | | | [phone] | | | +--------+ + + + [...]
--- OUTSIDE RECORDS SUMMARY | ~2020-05-29 | XMS | Encounter Summary ---
Demographics + + + | Address | [address] | | | [place] [address] | + + + | Home Phone [...] + + + | Author | [place] Lily [employer]ame [employer] [facility] | + + + | Organization | [facility] [employer] [facility] | [...] Team Providers + +------+ + | Care Outdoor Landscape Architect Name | Role | Phone | [...] | | 2005 | Visit | [place] | | Common Migraine | | | | Neuro-Ophthalmology | | without Mention of | | | | [address] | | Intractable Migraine | | | | Mailcode: CEI | | | | | | [place] [address] | | | | | | [phone] | | | +--------+---------+ + + + [...] 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
--- OUTSIDE RECORDS SUMMARY | ~2020-05-29 | XMS | Encounter Summary ---
Demographics + + + | Address | [address] | | | [place] [address] | + + + | Home Phone [...] + + + | Author | [place] Wall[employer] Science [facility] | + + + | Organization | [facility] Fingooroo Science [facility] [...] Providers + +------+ + | Care Edge Inker Heels Name | Role | Phone | + [...] | Oculoplastics at | [facility] [place] | | | | | Maicol Perez [address] | [address] | | | | | [address] | | | | | | [facility] [place] | | | | | | [facility], 5th floor | | | | | | [place] [address] | | | | | | [phone] | | | +--------+ + + + [...]
--- OUTSIDE RECORDS SUMMARY | ~2020-05-29 | XMS | Encounter Summary ---
Demographics + + + | Address | [address] | | | [place] [address] | + + + | Home Phone [...] + + | Author | [place] [employer] Science [facility] | + + + | Organization | [facility] HandsFree Networks Science [facility] [...] Providers + +------+ + | Care Material Scheduler Name | Role | Phone | [...] | | | Ave Mailcode: CH8N | [place], [place] | | | | | [facility] | [address] | | | | | and Healing, | [phone] | | | | | [facility] | | | | | | Floor [place], [place] | | | | | | [address] | | | | | | [phone] | | | +--------+ + + + [...]
--- OUTSIDE RECORDS SUMMARY | ~2020-05-29 | XMS | Encounter Summary ---
Demographics + + + | Address | [address] | | | [place] [address] | + + + | Home Phone [...] Organization | [facility] [...] Providers + +------+ + | Care Die Stamper Name | Role | Phone | + +------+ + PCP | Unavailable | + +------+ + Encounter Details +--------+ + + + + | Date | Type | Department | Care Team | Description | +--------+ + + + + | 10/14/ | Hospital | [facility] | | | | 1991 | Encounter | [facility] | | | | | | HEALTH [address] | | | | | | [place], | | | | | | [place] [address] | | | | | | [phone] | | | +--------+ + + + [...]
--- OUTSIDE RECORDS SUMMARY | ~2020-05-29 | XMS | Encounter Summary ---
Demographics + + + | Address | [address] | | | [place] [address] | + + + | Home Phone [...] + + + | Author | [place] Cay[employer] [facility] | + + + | Organization | [facility] [employer]DLab [facility] [...] Providers + +------+ + | Care Sole Rougher Name | Role | Phone | [...] CH8N | | | | | | [facility] | | | | | | and Healing, | | | | | | Building [address], | | | | | | Floor [place], [place] | | | | | | [address] | | | | | | [phone] | | | +--------+ + + + [...]
--- OUTSIDE RECORDS SUMMARY | ~2020-05-29 | XMS | Encounter Summary ---
Demographics + + + | Address | [address] | | | [place] [address] | + + + | Home Phone [...] + + | Author | [place] [employer] [facility] | + + + | Organization | [facility] [employer] [facility] | + + [...] Providers + +------+ + | Care Marketing Analytics Specialist Name | Role | Phone | [...] Refill Request | | 2012 | | [place]/Ophthalmol | MD [place] | | | | | ramonjaneen at [facility] [address] | | | | | | [address] Mailcode: | | | | | | CH11P [facility] | | | | | | Health and Healing, | | | | | | [facility] | | | | | | Floor [place], [place] | | | | | | [address] | | | | | | [phone] | | | +--------+--------+ + + + [...]
--- OUTSIDE RECORDS SUMMARY | ~2020-05-29 | XMS | Encounter Summary ---
Demographics + + + | Address | [address] | | | [place] [address] | + + + | Home Phone [...] | [facility] | [...] + +------+ + | Care Real Estate Loan Officer Name | Role | Phone | + +------+ + PCP | Unavailable | + +------+ + Encounter Details +--------+ + + + + | Date | Type | Department | Care Team | Description | +--------+ + + + + | 04/20/ | Hospital | [facility] | | | | 1995 | Encounter | MED CTR EMERGENCY | | | | | | CENTER [address] | | | | | | [place] | | | | | | [address] | | | | | | [phone] | | | +--------+ + + + [...]
--- OUTSIDE RECORDS SUMMARY | ~2020-05-29 | XMS | Encounter Summary ---
Demographics + + + | Address | [address] | | | [place] [address] | + + + | Home Phone [...] + + + | Author | [place] Seek [employer] Adore Science [facility] | + + + | Organization | [facility] [...] Team Providers + +------+ + | Care Broom Worker Name | Role | Phone | + +------+ + | Brenden Benavides MD | PCP | | + +------+ + Encounter Details +--------+ + + + + | Date | Type | Department | Care Team | Description | +--------+ + + + + | 02/23/ | Telephone | [facility] | Brad Currie MD | | | 2006 | | [place] | | | | | | Neuro-Ophthalmology | | | | | | [address] [facility] | | | | | | Mailcode: PATTI | | | | | | [place] [address] | | | | | | [phone] | | | +--------+ + + + [...]
--- OUTSIDE RECORDS SUMMARY | ~2020-05-29 | XMS | Encounter Summary ---
Demographics + + + | Address | [address] | | | [place] [address] | + + + | Home Phone [...] + + + | Author | [place] [employer] [facility] | + + + | Organization | [facility] [employer] [facility] | [...] Providers + +------+ + | Care Visual And Stock Associate Name | Role | Phone | [...] | | | Ave Mailcode: CH8N | [place], [place] | | | | | [facility] | [address] | | | | | and Healing, | [phone] | | | | | [facility] | | | | | | Floor [place], [place] | | | | | | [address] | | | | | | [phone] | | | +--------+ + + + [...]
--- OUTSIDE RECORDS SUMMARY | ~2020-05-29 | XMS | Encounter Summary ---
Demographics + + + | Address | [address] | | | [place] [address] | + + + | Home Phone [...] + + | Author | [place] [employer] [facility] | + + + | Organization | [facility] [employer]In [facility] | [...] Team Providers + +------+ + | Care Backhoe Operator Name | Role | Phone | [...] | | | | | | | [facility] | | | | | | | Hospital | | | | | | | [place], [place] | | | | | | | [address] | | | | | | | Phone: | | | | | | | [phone] | | | | | | | Fax: | | | | | | | [phone] | +--------+--------+ + + + + Encounter Details +--------+ + + + + | Date | Type | Department | Care Team | Description | +--------+ + + + + | 05/07/ | Hospital | [facility] [address] | [place], | | | 2007 | Encounter | [address] | MD [place] | | | | | [facility] [facility] | MD Holden,PhD | | | | | [place] | | | | | | [address] | | | | | | [phone] | | | +--------+ + + + [...] Dennis, | | | | | | M.D.Aluminum Container Tester surgeon: . | | | | | [...] | | | | | cervical region, FAROESE and | | | | | | [...] | | | | | | vein with6-Vincentian Envoy | | | | | | [...] artery. | | | | | | S5Jnnrht Berenstein | | | | | | [...] | | | | | with a 6-Vincentian Envoy | | | | | | [...]
--- OUTSIDE RECORDS SUMMARY | ~2020-05-29 | XMS | Encounter Summary ---
Demographics + + + | Address | [address] | | | [place] [address] | + + + | Home Phone [...] | Organization | [facility] | | [...] Providers + +------+ + | Care Cook Specialty Foreign Food Name | Role | Phone | + +------+ + PCP | Unavailable | + +------+ + Encounter Details +--------+ + + + + | Date | Type | Department | Care Team | Description | +--------+ + + + + | 10/20/ | Hospital | [facility] | | | | 1999 | Encounter | MED CTR EMERGENCY | | | | | | CENTER [address] | | | | | | [place] | | | | | | [address] | | | | | | [phone] | | | +--------+ + + + [...]
--- OUTSIDE RECORDS SUMMARY | ~2020-05-29 | XMS | Encounter Summary ---
Demographics + + + | Address | [address] | | | [place] [address] | + + + | Home Phone [...] | Organization | [facility] | [...] Team Providers + +------+ + | Care Mall Plant Caretaker Name | Role | Phone | [...] [address] | | | | | [place] [address] | [facility] | | | | | [address] [place] | [employer] [address] | | | | | [address] | [phone] | | | | | [phone] | | | +--------+ + + + [...]
--- OUTSIDE RECORDS SUMMARY | ~2020-05-29 | XMS | Encounter Summary ---
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 Vision [...] Brad Currie MD Neuro-Ophthalmology and Cerebrovascular Disease City Secretary of Ophthalmology, Neurology, and Neurosurgery documented in [...]
--- OUTSIDE RECORDS SUMMARY | ~2020-05-29 | XMS | Encounter Summary ---
Demographics + + + | Address | [address] | | | [place] [address] | + + + | Home Phone [...] + + + | Author | [place] The [employer] [facility] | + + + | Organization | [facility] [employer] [facility] [...] Team Providers + +------+ + | Care Cheese Sprayer Name | Role | Phone | [...] | | | | | | | [place] | | | | | | | [id number] | | | | | | | [facility] | | | | | | | [place], | | | | | | | [place] [address] | | | | | | | Phone: | | | | | | | [phone] | +--------+--------+ + + + + Encounter Details +--------+ + + + + | Date | Type | Department | Care Team | Description | +--------+ + + + + | 08/01/ | Hospital | [facility] [address] | Sam Pedroza MD | | | 2007 - | Encounter | [place] | [address] | | | | | [id number] [facility] | [place], [place] | | | 08/02/ | | HOSPITAL [place], | [address] | | | 2007 | | [place] [address] | [phone] | | | | | [phone] | | | +--------+ + + + [...] in 2 weeks, please call for appointment: [phone] Condition On Discharge: Vital Signs at discharge [...] in 2 weeks, please call for appointment: [phone] Condition On Discharge: Vital Signs at discharge [...] this time. PT to sign off. essenia oNwak 08/02/2008 9:00 AM PDTOT contact note: Spoke with pt who reports she has been up ambulating independently, has no ADL needs and [facility] Dr. Pedroza agreed that she would not need therapies. Spoke with RN who endorses that pt has been up independently last pm and this am. OT to sign off at this time. Yessenia Nowak, OTR/ L [address] Tomasz Caldera Md - 02/2008 11:08 AM [...] | | + +---------+ + + | [facility] DEPARTMENT OF | | | | | RADIOLOGY | | | | + +---------+ + + OPERATION RECORD (08/01/2008 12:00 AM PDT) + + + | Narrative | Performed At | + + + | [id number] | | | [id number] | | | [place] [id number] Date: | | | 08/01/2008 Attending Surgeon: | | | Sam Pedroza M.D. Concert Pianist(s): | | | Tomasz Rice M.D. | [...] | tonsils and then gently incised. A [place] 4 was then easily fed | | [...] | | | Pooja Pedroza M.D. / [id number] / | | | [id number] / [id number] / | | + + + + + | Procedure Note | + + | Krystal Rushing, Tomasz - 08/01/2008 12:00 AM PDT [id number] | | [id number] [facility] [place] | | [id number] Date: 08/01/2008 Attending Surgeon: Sam | | Pooja Pedroza Concert Pianist(s): Tomasz Rice M.D. | | Palomo Jansen [...] tonsils and | | thengently incised. A [place] 4 was then easily fed through it, [...] Sam Pedroza M.D. KG / | | [id number] / [id number] / [id number] / T: 08/02/2008 | |dripping from the [...] tonsils and then | |gently incised. A [place] 4 was then easily fed through it, [...] | | | |KG / HS | |[id number] / [id number] / 11112 / | | | | | | | | | | | | | | | | | | | | | + + TEACHING PHYSICIAN (08/01/2008 12:00 AM PDT) + + + | Narrative | Performed At | + + + | [id number] | | | [id number] | | | [place] [id number] | | | Date: 08/01/2008 Attending Surgeon: | | | Sam Pedroza M.D. Concert Pianist(s): | | | Tomasz Rice M.D. | [...] | | | Pooja Pedroza / LANETTE [id number] / [id number] / [id number] / [id number] D: | | | 08/01/2008 | | + + + + + | Procedure Note | + + | Sam Pedroza MD - 08/01/2008 12:00 AM PDT [id number] | | [id number] [facility] [place] | | [id number] Date: 08/01/2008ttending Surgeon: Sam | | Pooja Pedroza Concert Pianist(s): Tomasz Rice M.D. | | Palomo Jansen [...] | Bisi. Sam Pedroza M.D. AD / [id number] / [id number] / [id number] / 68570I: | | 08/01/2008T: 08/01/2008 | | | [...] | | | |AD / HS | |[id number] / [id number] / [id number] / [id number] | | | | | | | [...]
--- OUTSIDE RECORDS SUMMARY | ~2020-05-29 | XMS | Encounter Summary ---
Demographics + + + | Address | [address] | | | [place] [address] | + + + | Home Phone [...] + + + | Author | [place] [employer] [facility] | + + + | Organization | [facility] Advanced Liquid Logic [facility] | + [...] Providers + +------+ + | Care Automotive Maintenance Technician Name | Role | Phone [...] Kirk | | | | | CH[facility] | [place], [place] | | | | | Health and Healing, | [address] | | | | | Building | | | | | | Floor [place], [place] | | | | | | [address] | | | | | | [phone] | | | +--------+--------+ + + + [...]
--- OUTSIDE RECORDS SUMMARY | ~2020-05-29 | XMS | Encounter Summary ---
Demographics + + + | Address | [address] | | | [place] [address] | + + + | Home Phone [...] + + | Author | [place] [employer] [facility] | + + + | Organization | [facility] [employer] [facility] [...] Providers + +------+ + | Care Geoscience Technician Name | Role | Phone | [...] | | | [address] Mailcode: RPB07 | [place], [place] | | | | | [place], [place] | [address] | | | | | [address] | [phone] | | | | | [phone] | | | +--------+ + + + [...]
--- OUTSIDE RECORDS SUMMARY | ~2020-05-29 | XMS | Encounter Summary ---
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 year old female from [place] : Patient presents with: Transient visual loss [...] seconds; these occur 2-3 x per w togiak. Hobbies: Tobacco use: reports that she has [...] patient to continue follow-up for psuedotumor w [facility] neuro[facility]op[facility]. [facility] [...]
--- OUTSIDE RECORDS SUMMARY | ~2020-05-29 | XMS | Encounter Summary ---
Demographics + + + | Address | [address] | | | [place] [address] | + + + | Home Phone [...] + + + | Author | [place] [employer]uffWire [facility] | + + + | Organization | [facility] Crowdnetic [facility] | [...] Providers + +------+ + | Care Cardiac Exercise Physiologist Name | Role | Phone | + [...] | | | Ave Mailcode: CH8N | [place], [place] | | | | | [facility] | [address] | | | | | and [facility], | [phone] | | | | | [facility] | | | | | | Floor [place], [place] | | | | | | [address] | | | | | | [phone] | | | +--------+ + + + [...]
--- OUTSIDE RECORDS SUMMARY | ~2020-05-29 | XMS | Encounter Summary ---
Demographics + + + | Address | [address] | | | [place] [address] | + + + | Home Phone [...] | Organization | [facility] | | [...] Providers + +------+ + | Care Bag Tester Name | Role | Phone | [...] [place] | | | | | | [address] | | | | | | [phone] | | | +--------+ + + + [...]
--- OUTSIDE RECORDS SUMMARY | ~2020-05-29 | XMS | Encounter Summary ---
Demographics + + + | Address | [address] | | | [place] [address] | + + + | Home Phone [...] + + + | Author | [place] XIFIN Science [facility] | + + + | Organization | [facility] ANTs Software [facility] | + [...] Team Providers + +------+ + | Care Family Independence Case Manager Name | Role | Phone [...] | | | CH[facility] | [place], [place] | | | | | Health and Healing, | [address] | | | | | Building | | | | | | Floor [place], [place] | | | | | | [address] | | | | | | [phone] | | | +--------+--------+ + + + [...]
--- OUTSIDE RECORDS SUMMARY | ~2020-05-29 | XMS | Encounter Summary ---
Demographics + + + | Address | [address] | | | [place] [address] | + + + | Home Phone [...] Organization | [facility] | [...] Team Providers + +------+ + | Care Nremt Name | Role | Phone | + +------+ + PCP | Unavailable | + +------+ + Encounter Details +--------+ + + + + | Date | Type | Department | Care Team | Description | +--------+ + + + + | 09/20/ | Hospital | [facility] | | | | 1991 | Encounter | MED [facility] | | | | | | HEALTH [address] | | | | | | [place], | | | | | | [place] [address] | | | | | | [phone] | | | +--------+ + + + [...]
--- OUTSIDE RECORDS SUMMARY | ~2020-05-29 | XMS | Encounter Summary ---
Demographics + + + | Address | [address] | | | [place] [address] | + + + | Home Phone [...] + + + | Author | [place] Personeta Science [facility] | + + + | Organization | [facility] e-Tag Science [facility] [...] + +------+ + | Care Coin Machine Assembler Name | Role | Phone [...] + + | 06/24/ | Emergency | [facility] Emergency | | | | 2010 | | Department [address] | | | | | | [address] | | | | | | [facility] | | | | | | [place], [place] | | | | | | [address] | | | | | | [phone] | | | +--------+ + + + [...]
--- OUTSIDE RECORDS SUMMARY | ~2020-05-29 | XMS | Encounter Summary ---
Demographics + + + | Address | [address] | | | [place] [address] | + + + | Home Phone [...] + + + | Author | [place] Viewpoint Science [facility] | + + + | Organization | [facility] Broadcast.mobi Science [facility] [...] Team Providers + +------+ + | Care Trimmer Operator Three Knife Name | Role | Phone | + [...] Request (Pt | | 2006 | | [place] | [place] | requests more pain | | | | Oculoplastics at | [place], [place] | medication) | | | | [address] | [address] | | | | | [address] | [phone] | | | | | Eye [place] | | | | | | [facility], [facility] floor | | | | | | [place] [address] | | | | | | [phone] | | | +--------+--------+ + + + [...]
--- OUTSIDE RECORDS SUMMARY | ~2020-05-29 | XMS | Encounter Summary ---
Demographics + + + | Address | [address] | | | [place] [address] | + + + | Home Phone [...] + + + | Author | [place] Gridstone Research [facility] | + + + | Organization | [facility] [employer]entClick [facility] | [...] Providers + +------+ + | Care Net Developer Programmer Name | Role | Phone | + +------+ + | Dennis Maddox | PCP | | + +------+ + Encounter Details +--------+ + + + + | Date | Type | Department | Care Team | Description | +--------+ + + + + | 02/28/ | Emergency | [facility] Emergency | | | | 2013 - | | Department [address] | | | | | [address] | | | | 03/01/ | | [facility] | | | | 2013 | | [place], [place] | | | | | | [address] | | | | | | [phone] | | | +--------+ + + + [...]
--- OUTSIDE RECORDS SUMMARY | ~2020-05-29 | XMS | Encounter Summary ---
Demographics + + + | Address | [address] | | | [place] [address] | + + + | Home Phone [...] Organization | [facility] | [...] + + | 10/02/ | Hospital | [facility] | | | | 1991 | Encounter | [facility] | | | | | | HEALTH [address] | | | | | | [place], | | | | | | [place] [address] | | | | | | [phone] | | | +--------+ + + + [...]
--- OUTSIDE RECORDS SUMMARY | ~2020-05-29 | XMS | Encounter Summary ---
Demographics + + + | Address | [address] | | | [place] [address] | + + + | Home Phone [...] | Organization | [facility] | [...] Team Providers + +------+ + | Care Balling Head Tender Name | Role | Phone | + +------+ + PCP | Unavailable | + +------+ + Encounter Details +--------+ + + + + | Date | Type | Department | Care Team | Description | +--------+ + + + + | 09/07/ | Hospital | [facility] | | | | 1991 | Encounter | [facility] CTR EMERGENCY | | | | | | CENTER [address] | | | | | | [place] | | | | | | [address] | | | | | | [phone] | | | +--------+ + + + [...]
--- OUTSIDE RECORDS SUMMARY | ~2020-05-29 | XMS | Encounter Summary ---
Demographics + + + | Address | [address] | | | [place] [address] | + + + | Home Phone [...] + + + | Author | [place] [employer] [facility] | + + + | Organization | [facility] [employer] [facility] | + [...] Team Providers + +------+ + | Care Zumba Instructor Name | Role | Phone | [...] | | | | | | [address] [place], [place] | | | | | | [address] | | | | | | [phone] | | | +--------+ + + + [...]
--- OUTSIDE RECORDS SUMMARY | ~2020-05-29 | XMS | Encounter Summary ---
Demographics + + + | Address | [address] | | | [place] [address] | + + + | Home Phone [...] Organization | [facility] [...] Providers + +------+ + | Care Supervisor Instant Potato Processing Name | Role | Phone | + +------+ + PCP | Unavailable | + +------+ + Encounter Details +--------+ + + + + | Date | Type | Department | Care Team | Description | +--------+ + + + + | 07/10/ | Emergency | [facility] | Perry Flores | Headache; Benign | | 2012 | | MEDICAL CENTER | [place] [address] | intracranial | | | | EMERGENCY CENTER | [address] | hypertension; Back | | | | [address] | [place] [address] | pain | | | | [place], [place] | [phone] | | | | | [address] | | | | | | [phone] | | | +--------+ + + + [...] 07/10/132043 Date of Service: 07/10/132043 Status: Signed Watch Manufacturing Supervisor: Magdiel Jansen RN (Registered Nurse) Pt stated [...] 07/10/132041 Date of Service: 07/10/132024 Status: Signed Watch Manufacturing Supervisor: Magdiel Jansen RN (Registered Nurse) Returned from radiology. Tolerated procedure well. Magdiel Jansen RN 07/10/132041 onver ludwin Transaction, Provider Unknown - 07/10/2013 8:02 PM PDT ED Notes by Magdiel Jansen RN at 07/10/132001 Author: Magdiel Jansen RN Service: (none) Author Type: Registered Nurse Filed: 07/10/132002 Date of Service: 07/10/132001 Status: Signed Watch Manufacturing Supervisor: Magdiel Jansen RN (Registered Nurse) Pt transported to radiology via gurney with tech. Magdiel Jansen RN 07/10/132002 erry Negro MD - 07/10/2013 7:29 PM PDTFormatting of this note might be different from kaitlyn beck original. ED Provider Notes by Anoop Flores MD at 07/10/131928 Author: Anoop Flores MD Service: (none) Author Type: Physician Filed: 07/10/132239 Date of Service: 07/10/131928 Status: Signed Watch Manufacturing Supervisor: Anoop Flores MD (Physician) Located Within [facility] Department of Emergency Medicine History of Present [...] shown by XR with her Dr in [place] earlier in the year. Reports grad ual [...] et. Care prior to arrival consisted of Gilberts twice daily, with no relief. Patient cannot catarina e NSAIDS. Patient[place]unt [place] [address] [place] in [place], [place], for Hydrocephalus. Patient stat es she had no problems with it until this year. Patient has been having headaches all year. Patient lives in [place], spoke with the Neurosurgeon carton and can supply supervisor, and was told to go to [facility] with a Neurosurgeon. [facility] Past Medical History Diagnosis Date Diabetes [...] Value Ref Range Date/Time Comprehensive metabolic panel [[id number]] (Abnormal) Collected:07/10/131946 Order Status:Completed Updated:07/10/132010 Specimen Information:Blood [...] EGFR >60 >60 mL/min/1.73m2 CBC with differential [[id number]] (Abnormal) Collected:07/10/131946 Order Status:Completed Updated:07/10/131953 Specimen Information:Blood [...] this week [address] [facility] [address] [facility] Follow up next week [address] [place] [address] Located Within [facility] Emergency Department If symptoms worsen [address] [facility] [address] Discharge Medications: New Prescriptions No new medications [...] 07/10/131938 Date of Service: 07/10/131814 Status: Signed Watch Manufacturing Supervisor: Magdiel Jansen RN (Registered Nurse) Bed side [...] | + + + | ANNABELLA Waters [facility] [employer] XR LUMBAR SPINE LIMITED 2-3 VIEW HISTORY: [...] | + + + | ANNABELLA Jt [facility] CT HEAD WO CONTRAST HISTORY: [...]
--- OUTSIDE RECORDS SUMMARY | ~2020-05-29 | XMS | Encounter Summary ---
Demographics + + + | Address | [address] | | | [place] [address] | + + + | Home Phone [...] Organization | [facility] | | [...] Providers + +------+ + | Care Poultry Field Service Technician Name | Role | Phone | + +------+ + PCP | Unavailable | + +------+ + Encounter Details +--------+ + + + + | Date | Type | Department | Care Team | Description | +--------+ + + + + | 10/10/ | Hospital | [facility] | | | | 1991 | Encounter | MED CTR WOMENS | | | | | | HEALTH [facility] [address] | | | | | | [place], | | | | | | [place] [address] | | | | | | [phone] | | | +--------+ + + + [...]
--- OUTSIDE RECORDS SUMMARY | ~2020-05-29 | XMS | Encounter Summary ---
Demographics + + + | Address | [address] | | | [place] [address] | + + + | Home Phone [...] + + + | Author | [place] [employer] [facility] | + + + | Organization | [facility] [facility] | + + + | Address | Unknown | + + + | Phone | Unavailable | + + + Support + + +---------+ + | Name | Relationship | Address | Phone | + + +---------+ + | Ruby Au | ECON | Unknown | | + + +---------+ + Care Team Providers + +------+ + | Care Tour Driver Name | Role | Phone | + +------+ + | Brenden Benavides MD | PCP | | + +------+ + Encounter Details +--------+ + + + + | Date | Type | Department | Care Team | Description | +--------+ + + + + | 02/22/ | Telephone | [facility] | Hay Hughes MD 1435 | | | 2006 | | [place] | [address] | | | | | Oculoplastics at | [place], [place] | | | | | [address] | [address] | | | | | [address] | [phone] | | | | | [facility] [place] | | | | | | [address] | | | | | | [place] [address] | | | | | | [phone] | | | +--------+ + + + [...]
--- OUTSIDE RECORDS SUMMARY | ~2020-05-29 | XMS | Encounter Summary ---
Demographics + + + | Address | [address] | | | [place] [address] | + + + | Home Phone [...] | [facility] | [...] Providers + +------+ + | Care Emergency Communications Dispatcher Name | Role | Phone | + +------+ + PCP | Unavailable | + +------+ + Encounter Details +--------+ + + + + | Date | Type | Department | Care Team | Description | +--------+ + + + + | 01/15/ | Hospital | [facility] | Marine Leonard | | | 2011 | Encounter | MED CTR EMERGENCY | DO Gaurang Drake | | | | | [address] | [place], [place] | | | | | [place], [place] | [address] | | | | | [address] | | | | | | [phone] | | | +--------+ + + + [...] with chief complaint of a headache. [facility] states that she was recently in [place] and saw her neurologist. She said she had some tests done in September and October, and said that her TOP PRECIPITATOR OPERATOR HELPER shunt was no longer in place. She [...] s tates that she was seen at [place] today for her headache, but she states [...] states that she was seen twice in [place] and was given some sort of medicine, but s he does know the name of it, but it did not help her headache and so she came here for to s qagan tayagungin further treatment. Apparently when she was at [place], she had received some morphine on one [...] to pseudotumor cerebri a nd having a TOP PRECIPITATOR OPERATOR HELPER shunt placed. Again, she states that the [...] BY: Vidal Leonard, Emergency Medicine JOB #: [id number] EXT JOB #:[id number] <Electronicall y Signed by Jt Leonard DO> 01/21/12 1454 documented in this encounter Plan of Treatment Not on filedocumented as of this encounter Visit Diagnoses Not on filedocumented in this encounter"
--- OUTSIDE RECORDS SUMMARY | ~2020-05-29 | XMS | Encounter Summary ---
Demographics + + + | Address | [address] | | | [place] [address] | + + + | Home Phone [...] + + | Author | [place] [employer] [facility] | + + + | Organization | On License Of [facility] | + [...] Team Providers + +------+ + | Care Floorworker Lasting Name | Role | Phone | + [...] | | | Ave Mailcode: CH8N | [place], [place] | | | | | [facility] | [address] | | | | | and Healing, | [phone] | | | | | [facility] | | | | | | Floor [place], [place] | | | | | | [address] | | | | | | [phone] | | | +--------+ + + + [...]
--- OUTSIDE RECORDS SUMMARY | ~2020-05-29 | XMS | Encounter Summary ---
Demographics + + + | Address | [address] | | | [place] [address] | + + + | Home Phone [...] + + + | Author | [place] [employer] [facility] | + + + | Organization | [facility] [facility] | + + + | Address | Unknown | + + + | Phone | Unavailable | + + + Support + + +---------+ + | Name | Relationship | Address | Phone | + + +---------+ + | Ruby Au | ECON | Unknown | | + + +---------+ + Care Team Providers + +------+ + | Care Bead Forming Machine Set Up Operator Name | Role | [...] | | | | [address] | [facility], | | | | | | [place], [place] | 10th Floor | | | | | | [address] | [place], [place] | | | | | | Phone: | [address] | | | | | | [phone] | Phone: | | | | | | Fax: | [phone] | | | | | | [phone] | Fax: | | | | | | | [phone] | +--------+--------+ + + + + Reason [...] | | | [facility] | [place], [place] | | | | | [place], [place] | [address] | | | | | [address] | [phone] | | | | | [phone] | | | | | | | [...] the irma aviva. Thanks for coming to [facility] today. Your head CT was negative for any new findings. The neurosurgeon did not think there was a malfunction in your shunt. The eyewear manufacturing supervisor recommends you taking Diomox again and follow up in 1 week at [facility]. Please follow up with your doctor. Rest, [...] + + + | [facility] | [address] | [place], [place] | | | ZACHARIAH GRIFFITH OF [facility] | [address] | [address] | | | TESTS | | | [...] + + + + + | [facility] | [address] | [place] [address] | | | SERVICES, CORE | SKY [...] | | | | | CHRISTIANO TORRES ([id number]) | | | | | | on 03/14/2013 10:35:55 AM | | | | + + + + + + + + | Specimen | + + | | + + + + + | Narrative | Performed At | + + + | Please click | [facility] | | on view image for the detailed interpretation from [employer] results. | CARDIOLOGY | + + + + + + + + | Performing | Address | City/State/Zipcode | Phone Number | | Organization | | | | + + + + + | [facility] | [address] | [place], [place] | | | CARDIOLOGY | [address] | [address] | | + + + + + [...] [facility] | [address] | [place], [place] | | | ZACHARIAH GRIFFITH OF CARE | [facility] | [address] | | | TESTS | | | [...] [facility] | [address] | [place] [address] | | | SERVICES, CORE | PARK [...] | + + + + + | [facility] | [address] [facility] | [place] [address] | | | SERVICES, CORE | SKY [...] | | | LABORATORY | | | IRANIAN | | | SERVICES, | | | [...] [facility] | [address] | [place] [address] | | | SERVICES, CORE | PARK [...] | + + + + + | [facility] | [address] | [place] [address] | | | SERVICES, CORE | SKY [...] + | [place] - AIRPORT - | [address] [place] [address] | [place] [address] | | | [place] | | | | + + + + + RAINBOW HOLD TUBE - RED TOP (03/13/2013 11:52 AM PDT) + + | Specimen | + + | Blood - Blood | + + + + + + + | Performing | Address | City/State/Zipcode | Phone Number | | Organization | | | | + + + + + | [facility] | [address] [facility] | [place] [address] | | | SERVICES, CORE | SKY [...]
--- OUTSIDE RECORDS SUMMARY | ~2020-05-29 | XMS | Encounter Summary ---
Demographics + + + | Address | [address] | | | [place] [address] | + + + | Home Phone [...] + + | Author | [place] [employer] [facility] | + + + | Organization | [facility] [employer] [facility] [...] Team Providers + +------+ + | Care Postal Support Employee Name | Role | Phone | + [...] | | | Ave Mailcode: CH8N | [place], [place] | | | | | [facility] | [address] | | | | | and Healing, | [phone] | | | | | [facility] | | | | | | Floor [place], [place] | | | | | | [address] | | | | | | [phone] | | | +--------+ + + + [...]
--- OUTSIDE RECORDS SUMMARY | ~2020-05-29 | XMS | Encounter Summary ---
Demographics + + + | Address | [address] | | | [place] [address] | + + + | Home Phone [...] Organization | [facility] | | | and [place] [...] Team Providers + +------+ + | Care Sat Act Instructor Name | Role | Phone | + +------+ + PCP | Unavailable | + +------+ + Encounter Details +--------+ + + + + | Date | Type | Department | Care Team | Description | +--------+ + + + + | 07/21/ | Hospital | [facility] | | | | 1990 | Encounter | MED CTR EMERGENCY | | | | | | CENTER [address] | | | | | | [place] | | | | | | [address] | | | | | | [phone] | | | +--------+ + + + [...]
--- OUTSIDE RECORDS SUMMARY | ~2020-05-29 | XMS | Encounter Summary ---
Demographics + + + | Address | [address] | | | [place] [address] | + + + | Home Phone [...] + + | Author | [place] [employer] [facility] | + + + | Organization | [facility] [employer] [facility] | + [...] Team Providers + +------+ + | Care Informatica Name | Role | Phone | + [...] | | | [address] Mailcode: RPB07 | [place], [place] | | | | | [place], [place] | [address] | | | | | [address] | [phone] | | | | | [phone] | | | +--------+ + + + [...]
--- OUTSIDE RECORDS SUMMARY | ~2020-05-29 | XMS | Encounter Summary ---
Demographics + + + | Address | [address] | | | [place] [address] | + + + | Home Phone [...] + + | Author | [place] [employer] [facility] | + + + | Organization | [facility] [facility] | + + [...] Providers + +------+ + | Care Wool Puller Name | Role | Phone | [...] Cerebri; | | 2005 | Visit | [place] | | Common Migraine | | | | Neuro-Ophthalmology | | without Mention of | | | | [address] | | Intractable Migraine | | | | Mailcode: CEI | | | | | | [place] [address] | | | | | | [phone] | | | +--------+---------+ + + + [...] 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
--- OUTSIDE RECORDS SUMMARY | ~2020-05-29 | XMS | Encounter Summary ---
Demographics + + + | Address | [address] | | | [place] [address] | + + + | Home Phone [...] + + + | Author | [place] [employer] [facility] | + + + | Organization | [facility] [employer] [facility] | + + [...] Providers + +------+ + | Care Commercial Specialist Name | Role | Phone | [...] Care Coordination | | 2018 | | [place] | MD [address] | | | | | Neuro-Ophthalmology | [facility] [place] | | | | | at [facility] [address] | [address] | | | | | Ave Mailcode: CH3G | [phone] | | | | | [facility] | | | | | | and Healing, | | | | | | Building | | | | | | Floor [place], [place] | | | | | | [address] | | | | | | [phone] | | | +--------+ + + + [...]
--- OUTSIDE RECORDS SUMMARY | ~2020-05-29 | XMS | Encounter Summary ---
Demographics + + + | Address | [address] | | | [place] [address] | + + + | Home Phone [...] | [facility] | | [...] Providers + +------+ + | Care Coal Yard Supervisor Name | Role | Phone | + +------+ + PCP | Unavailable | + +------+ + Encounter Details +--------+ + + + + | Date | Type | Department | Care Team | Description | +--------+ + + + + | 06/22/ | Hospital | [facility] | Yovanny Suazo, | | | 1991 | Encounter | MED CTR WOMENS | MD [address] | | | | | HEALTH [facility] [address] | [address] | | | | | [place], | [place] [address] | | | | | [place] [address] | [phone] | | | | | [phone] | | | +--------+ + + + [...]
--- OUTSIDE RECORDS SUMMARY | ~2020-05-29 | XMS | Encounter Summary ---
Demographics + + + | Address | [address] | | | [place] [address] | + + + | Home Phone [...] + + | Author | [place] [employer] [facility] | + + + | Organization | [facility] [employer] [facility] | [...] Team Providers + +------+ + | Care Actuarial Manager Name | Role | Phone | + +------+ + | Dennis Maddox | PCP | | + +------+ + Encounter Details +--------+ + + + + | Date | Type | Department | Care Team | Description | +--------+ + + + + | 03/15/ | Telephone | [facility] | Ronaldo Martin MD | | | 2012 | | [place]/Ophthalmol | [facility] Martin | | | | | leon at [facility] [address] | [address] [place] [address] | | | | | Gianluca Kirk Mailcode: | [place] [address] | | | | | CH11P [facility] | [phone] | | | | | Health and Healing, | | | | | | | | | | | | [place], [place] | | | | | | [address] | | | | | | [phone] | | | +--------+ + + + [...]
--- OUTSIDE RECORDS SUMMARY | ~2020-05-29 | XMS | Encounter Summary ---
Demographics + + + | Address | [address] | | | [place] [address] | + + + | Home Phone [...] + + + | Author | [place] [email or web address] [facility] | + + + | Organization | [facility] [employer] [facility] | + [...] + +------+ + | Care Health Care Coach Name | Role | Phone | [...] Cerebri | | 2006 | Visit | [place] | [address] | (Primary Dx) | | | | Oculoplastics at | [place], [place] | | | | | [address] | [address] | | | | | [address] | [phone] | | | | | Eye [place] | | | | | | [facility], [address] [place] [address] | | | | | | [place] [address] | | | | | | [phone] | | | +--------+---------+ + + + [...]
--- OUTSIDE RECORDS SUMMARY | ~2020-05-29 | XMS | Encounter Summary ---
Demographics + + + | Address | [address] | | | [place] [address] | + + + | Home Phone [...] [facility] [...] Providers + +------+ + | Care Business Center Representative Name | Role | Phone | + +------+ + PCP | Unavailable | + +------+ + Encounter Details +--------+ + + + + | Date | Type | Department | Care Team | Description | +--------+ + + + + | 10/04/ | Hospital | [facility] | | | | 1991 | Encounter | MED CTR WOMENS | | | | | | HEALTH [address] | | | | | | [place], | | | | | | [place] [address] | | | | | | [phone] | | | +--------+ + + + [...]
--- OUTSIDE RECORDS SUMMARY | ~2020-05-29 | XMS | Encounter Summary ---
Demographics + + + | Address | [address] | | | [place] [address] | + + + | Home Phone [...] Providers + +------+ + | Care Loading Machine Adjuster Name | Role | Phone | + +------+ + PCP | Unavailable | + +------+ + Encounter Details +--------+ + + + + | Date | Type | Department | Care Team | Description | +--------+ + + + + | 07/30/ | Hospital | [facility] | | | | 2008 - | Encounter | MED CTR MED ONC | | | | | | [address] [place] | | | | 08/02/ | | [place] [address] | | | | 2008 | | [phone] | | | +--------+ + + + [...]
--- OUTSIDE RECORDS SUMMARY | ~2020-05-29 | XMS | Encounter Summary ---
Demographics + + + | Address | [address] | | | [place] [address] | + + + | Home Phone [...] + + + | Author | [place] [employer]URN[employer] [facility] | + + + | Organization | [facility] [employer] [facility] | [...] + +------+ + | Care Retail Sales Manager Name | Role | Phone [...] | | [address] Mailcode:OP14B | [place], | | | | | [facility] [place] | [place] [address] | | | | | [place], [place] | | | | | | [address] | | | | | | [phone] | | | +--------+ + + + [...]
--- OUTSIDE RECORDS SUMMARY | ~2020-05-29 | XMS | Encounter Summary ---
Demographics + + + | Address | [address] | | | [place] [address] | + + + | Home Phone [...] + + + | Author | [place] [employer] [facility] | + + + | Organization | [facility] [employer] [facility] | + + [...] Providers + +------+ + | Care Security Public Safety Officer Name | Role | Phone | + +------+ + | Dennis Maddox | PCP | | + +------+ + Encounter Details +--------+ + + + + | Date | Type | Department | Care Team | Description | +--------+ + + + + | 03/15/ | Telephone | [facility] | Ronaldo Martin MD | | | 2012 | | [place]/Ophthalmol | [facility] | | | | | [place] at [facility] [address] | [address] [place] [address] | | | | | Gianluca Kirk Mailcode: | [place] [address] | | | | | CH[address]P [facility] | [phone] | | | | | Health and Healing, | | | | | | | | | | | | [place], [place] | | | | | | [address] | | | | | | [phone] | | | +--------+ + + + [...]
--- OUTSIDE RECORDS SUMMARY | ~2020-05-29 | XMS | Encounter Summary ---
Demographics + + + | Address | [address] | | | [place] [address] | + + + | Home Phone [...] + + + | Author | [place] [employer]pliciss[employer] [facility] | + + + | Organization | [facility] [employer] [facility] | + + [...] Providers + +------+ + | Care Acid Wash Operator Name | Role | Phone | [...] | | | Ave Mailcode: CH8N | [place], [place] | | | | | [facility] | [address] | | | | | and Healing, | [phone] | | | | | [facility] | | | | | | Floor [facility] [place] | | | | | | [address] | | | | | | [phone] | | | +--------+ + + + [...]
--- OUTSIDE RECORDS SUMMARY | ~2020-05-29 | XMS | Encounter Summary ---
Demographics + + + | Address | [address] | | | [place] [address] | + + + | Home Phone [...] + + | Author | [place] Baiyaxuan Science [facility] | + + + | Organization | [facility] Anews [facility] [...] Providers + +------+ + | Care Shop Firer/Fireman Name | Role | Phone | + [...] [facility] [address] | MD [address] | | | | | Yelena Mailcode: CH8N | [facility] | | | | | [facility] | Rd [place], [place] | | | | | and Healing, | [address] | | | | | Building | [phone] | | | | | Floor [place], [place] | | | | | | [address] | | | | | | [phone] | | | +--------+ + + + [...]
== END 2020-05-30 02:04 | disposition home or self-care (01) ==
LOC: ED 22:45
DX: T40.2X1A Poisoning by other opioids, accidental (unintentional), initial encounter (principal); E11.9 Type 2 diabetes mellitus without complications; I10 Essential (primary) hypertension; J44.9 Chronic obstructive pulmonary disease, unspecified; F17.200 Nicotine dependence, unspecified, uncomplicated; Z88.1 Allergy status to other antibiotic agents; Z88.8 Allergy status to other drugs, medicaments and biological substances; Z88.5 Allergy status to narcotic agent; Z79.899 Other long term (current) drug therapy; Z79.84 Long term (current) use of oral hypoglycemic drugs
CPT/HCPCS: 99283

== ENCOUNTER 2020-07-07 19:40 | Emergency (ER) | payer OTHER ==
[~2020-07-07] VITALS: Ht 165.1 cm; Wt 90.7 kg
--- OUTSIDE RECORDS SUMMARY | ~2020-07-07 | XMS | Encounter Summary ---
Demographics + + + | Address | [address] | | | [place] [address] | + + + | Home Phone | | + + + | Preferred Language | Unknown | + + + | Marital Status | | + + + | Christianity Affiliation | NON | + + + | Race | or | + + + | Ethnic Group | Not or | + + + Author + + + | Author | [facility] | + + + | Organization | [facility] | + + + | Address | Unknown | + + + | Phone | Unavailable | + + + Support + + +---------+ + | Name | Relationship | Address | Phone | + + +---------+ + | Ruby Au | ECON | Unknown | | + + +---------+ + Care Team Providers + +------+ + | Care Moisture Conditioner Operator Name | Role | Phone | + +------+ + PCP | Unavailable | + +------+ + Encounter Details +--------+ + + + + | Date | Type | Department | Care Team | Description | +--------+ + + + + | 05/27/ | Results | Neurosurgery [address] | [address] | | | 2005 | Only | [address] | Jt Yung | | | | | [place] Mailcode:OP14B | Sandra Maloney [place], | | | | | [employer] | [place] [address] | | | | | [place], [place] | | | | | | [address] | | | | | | [phone] | | | +--------+ + + + [...] as of this encounter Plan of Treatment + +---------+--------+ + + | Name | Type | Priori | Associated Diagnoses | Date/Time | | | | ty | | | + +---------+--------+ + + | CT OUTSIDE FILMS | Imaging | Routin | | 05/27/2006 12:00 AM | | | | e | | PDT | + +---------+--------+ + + documented as of this encounter Visit Diagnoses Not on filedocumented in this encounter"
--- OUTSIDE RECORDS SUMMARY | ~2020-07-07 | XMS | Encounter Summary ---
Demographics + + + | Address | [address] | | | [place] [address] | + + + | Home Phone | | + + + | Preferred Language | Unknown | + + + | Marital Status | | + + + | Quaker Affiliation | NON | + + + | Race | or | + + + | Ethnic Group | Not or | + + + Author + + + | Author | [facility] | + + + | Organization | [facility] [employer] [facility] | + + + | Address | Unknown | + + + | Phone | Unavailable | + + + Support + + +---------+ + | Name | Relationship | Address | Phone | + + +---------+ + | Ruby Au | ECON | Unknown | | + + +---------+ + Care Team Providers + +------+ + | Care Automotive Manager Name | Role | Phone | + +------+ + PCP | Unavailable | + +------+ + Encounter Details +--------+ + + + + | Date | Type | Department | Care Team | Description | +--------+ + + + + | 08/23/ | Telephone | Neurosurgery at | Sam ePdroza MD | | | 2010 | | [facility] [address] | [address] | | | | | Ave Center for | [place], [place] | | | | | Health and Healing, | [address] | | | | | Building , | [phone] | | | | | floor [place], [place] | | | | | | [address] | | | | | | [phone] | | | +--------+ + + + [...]
--- OUTSIDE RECORDS SUMMARY | ~2020-07-07 | XMS | Encounter Summary ---
Demographics + + + | Address | [address] | | | [place] [address] | + + + | Home Phone [...] | Author | [facility] [employer] [facility] | + + + | Organization | [facility] [employer] [facility] | + + + | Address | Unknown | + + + | Phone | Unavailable | + + + Support + + +---------+ + | Name | Relationship | Address | Phone | + + +---------+ + | Ruby Au | ECON | Unknown | | + + +---------+ + Care Team Providers + +------+ + | Care Tree Thinner Name | Role | Phone | + +------+ + | Brenden Benavides MD | PCP | | + +------+ + Reason for Visit + + + | Reason | Comments | + + + | Follow-up visit | PTC | + + + Encounter Details +--------+---------+ + + + | Date | Type | Department | Care Team | Description | +--------+---------+ + + + | 03/27/ | Office | [facility] | Brad Currie MD | Pseudotumor Cerebri | | 2006 | Visit | [place] | | (Primary Dx) | | | | Neuro-Ophthalmology | | | | | | [address] [facility] | | | | | | Mailcode: PATTI | | | | | | [place] [address] | | | | | | [phone] | | | +--------+---------+ + + + [...] documented as of this encounter Progress Notes Marko Sergio M - 03/27/2007 11:07 AM PDTFormatting of this note might be differen t from the original. Neuro-Ophthalmology Return Patient Evaluation 03/27/2007 Referred by: CASIMIRO PAYTON MD [address] [place] [address] Per [facility] chart note taken this morning by . Symptoms: Patient specific problem noted by patient: transient visual loss HPI: 31 y.o. year old female from [place] : Patient presents with: Transient visual loss Patient was first diagnosed with pseudotumor cerebri 1 year ago and had a shunt placed then removed 1 month later. Patient was put on Diamox, but had persistent papilledema and visual field loss and underwent an optic nerve sheath fenestration 7 weeks ago. Patient has not re turned for follow up except for post-op by plastics. Patient reports that within days of brad rohit she has had transient "black outs" OS lasting 15-20 seconds; these occur 2-3 x per week . She is not having the numbness and tingling at this time on her Diamox 500 mg bid. She t hinks that she has lost a few pounds. 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 : negative Musculoskeletal: negative Psych/Neuro: negative General Appearance: Healthy, no apparent distress. Visual Acuity: Vasc RE 20/20 LE 20/30 Color Vision: RE AOHRR 10/10 LE AOHRR 7.5/10 Lids: Normal EOM's: Fixation: normal Saccades: normal Pursuit: normal Convergence: normal Nystagmus: none Strabimus: no Pupils:patient was dilated this morning. Unable to check pupils RE LE Sluggish: RAPD: Dilation Lag: Size (mm) Dark: Size (mm) Light: 8 8 Confrontational VF: normal Visual Neglect: None GOLDMANN PERIMETRY FIRST EYE TESTED: Left only Examiner: Ravin Wray OD: Add OS: FINDINGS: Static and kinetic perimetry was performed using 3 isopters OS. Fixation was exc ellent. Cooperation was good. Foveal threshold was I1e OS. There was an inferonasal depre ssion that tended to respect the horizontal meridian. The blind spot is enlarged and does n ot encroach within 10 degrees of fixation. The ability to see the I1e isopter is better to than in January 2007. Alert and Oriented x 3: yes Verbal Memory: Grossly normal Speech normal?: yes Face normal?: Yes Fundi: Dilated Funduscopy revealed mild hyperemia of both nerves with trace to mild edema bilaterally. Th ere are tortuous vessels OU. This is better OS than in early January 2007. Impression: 1) Pseudotumor cerebri Plan: She is doing better. I am going to keep her on 500 mg of Diamox bid for now. She r lesly does not want to increase her dose and I think that this is fine given that her disc e sushant is very mild and her visual function. I am going to see her back in 2 months time. Brad Currie MD Neuro-Ophthalmology and Cerebrovascular Disease Geotechnical Operating Engineer of Ophthalmology, Neurology, and Neurosurgery documented in this encounter Plan of Treatment + + +--------+ + + | Name | Type | Priori | Associated Diagnoses | Order Schedule | | | | ty | | | + + +--------+ + + | FL VISUAL FIELD | Procedures | Routin | Pseudotumor | Ordered: 03/27/2007 | | EXAM,EXTENDED | | e | Cerebri | | + + +--------+ + + documented as of this encounter Visit Diagnoses + + | Diagnosis | + + | Pseudotumor cerebri - Primary Benign intracranial hypertension | + + documented in this encounter
--- OUTSIDE RECORDS SUMMARY | ~2020-07-07 | XMS | Encounter Summary ---
Demographics + + + | Address | [address] | | | [place] [address] | + + + | Home Phone | | + + + | Preferred Language | Unknown | + + + | Marital Status | | + + + | Roman Catholic Affiliation | NON | + + + | Race | or | + + + | Ethnic Group | Not or | + + + Author + + + | Author | [facility] [employer] [facility] | + + + | Organization | [facility] [facility] | + + + | Address | Unknown | + + + | Phone | Unavailable | + + + Support + + +---------+ + | Name | Relationship | Address | Phone | + + +---------+ + | Ruby Au | ECON | Unknown | | + + +---------+ + Care Team Providers + +------+ + | Care Cell Room Operator Name | Role | Phone | + +------+ + | Brenden Benavides MD | PCP | | + +------+ + Encounter Details +--------+ + + + + | Date | Type | Department | Care Team | Description | +--------+ + + + + | 09/28/ | Documentati | [facility] | Brad Currie MD | | | 2006 | on | [place] | | | | | | Neuro-Ophthalmology | | | | | | [address] | | | | | | Mailcode: PATTI | | | | | | [place] [address] | | | | | | [phone] | | | +--------+ + + + [...]
--- OUTSIDE RECORDS SUMMARY | ~2020-07-07 | XMS | Encounter Summary ---
Demographics + + + | Address | [address] | | | [place] [address] | + + + | Home Phone | | + + + | Preferred Language | Unknown | + + + | Marital Status | | + + + | Muslim Affiliation | NON | + + + | Race | or | + + + | Ethnic Group | Not or | + + + Author + + + | Author | [facility] [employer] [facility] | + + + | Organization | [facility] [employer] [facility] | + + + | Address | Unknown | + + + | Phone | Unavailable | + + + Support + + +---------+ + | Name | Relationship | Address | Phone | + + +---------+ + | Ruby Au | ECON | Unknown | | + + +---------+ + Care Team Providers + +------+ + | Care Graduate Student Name | Role | Phone | + [...] | | | Ave Center for | Neurosurgery [address] | | | | | Health and Healing, | [address] [facility] | | | | | Building | [place], [place] | | | | | floor [place], [place] | [address] | | | | | [address] | | | | | | [phone] | | | +--------+---------+ + + + [...] - 07/22/2008 12:28 PM PDTThis 32 y.o. Lady comes in today for preoperative appointment. Today [...] shunt on 08/01. PARQ held with [facility] answered to her satisfaction. Consent signed and instructions given. documented in this encoun ter Plan of Treatment Not on filedocumented as of this encounter Visit Diagnoses + + | Diagnosis | + + | Pseudotumor cerebri - Primary Benign intracranial hypertension | + + documented in this encounter"
--- OUTSIDE RECORDS SUMMARY | ~2020-07-07 | XMS | Encounter Summary ---
Demographics + + + | Address | [address] | | | [place] [address] | + + + | Home Phone | | + + + | Preferred Language | Unknown | + + + | Marital Status | | + + + | Oriental Orthodox Affiliation | Unknown | + + + | Race | Unknown | + + + | Ethnic Group | Unknown | + + + Author + + + | Author | [facility] | | | and [place] | + + + | Organization | [facility] | | | and [...] Team Providers + +------+ + | Care Civil Engineering Project Manager Name | Role | Phone | + +------+ + PCP | Unavailable | + +------+ + Encounter Details +--------+ + + + + | Date | Type | Department | Care Team | Description | +--------+ + + + + | 04/20/ | Hospital | [facility] | | | | 1995 | Encounter | MED CTR EMERGENCY | | | | | | CENTER [address] | | | | | | [place] | | | | | | [address] | | | | | | [phone] | | | +--------+ + + + [...]
--- OUTSIDE RECORDS SUMMARY | ~2020-07-07 | XMS | Encounter Summary ---
Demographics + + + | Address | [address] | | | [place] [address] | + + + | Home Phone | | + + + | Preferred Language | Unknown | + + + | Marital Status | | + + + | Sikh Affiliation | NON | + + + | Race | or | + + + | Ethnic Group | Not or | + + + Author + + + | Author | [facility] [employer] [facility] | + + + | Organization | [facility] [employer] [facility] | + + + | Address | Unknown | + + + | Phone | Unavailable | + + + Support + + +---------+ + | Name | Relationship | Address | Phone | + + +---------+ + | Ruby Au | ECON | Unknown | | + + +---------+ + Care Team Providers + +------+ + | Care Preparator Name | Role | Phone | + +------+ + | Yeison Simms MD | PCP | Unavailable | + +------+ + Reason for Referral Consult to [place] (Routine) +--------+--------+ + + + + | Status | Reason | Specialty | Diagnoses / | Referred By | Referred To | | | | | Procedures | Contact | Contact | +--------+--------+ + + + + | Closed | | Neurological | Diagnoses | Kasia, | Kasia, | | | | Surgery | Benign | MD Sam | MD Sam | | | | | intracranial | [address] | [address] | | | | | | Ave | Ave | | | | | hypertension | [place], [place] | [place] | | | | | Procedures | [address] | [address] | | | | | REQUEST TO | Phone: | Phone: | | | | | SURGERY | [phone] | [phone] | | | | | 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 | [facility] [place] | | | | | Health and Healing, | [address] | | | | | [facility] , 8th | [phone] | | | | | floor [place], [place] | | | | | | [address] | | | | | | [phone] | | | +--------+ + + + [...]
--- OUTSIDE RECORDS SUMMARY | ~2020-07-07 | XMS | Encounter Summary ---
Demographics + + + | Address | [address] | | | [place] [address] | + + + | Home Phone | | + + + | Preferred Language | Unknown | + + + | Marital Status | | + + + | Roman Catholic Affiliation | Unknown | + + + | Race | Unknown | + + + | Ethnic Group | Unknown | + + + Author + + + | Author | [facility] | | | and [place] | + + + | Organization | [facility] | | | and [place] [...] Team Providers + +------+ + | Care Mold Cooler Name | Role | Phone | + +------+ + PCP | Unavailable | + +------+ + Encounter Details +--------+ + + + + | Date | Type | Department | Care Team | Description | +--------+ + + + + | 08/01/ | Hospital | [facility] | | | | 1991 | Encounter | MED CTR [facility] | | | | | | HEALTH [address] | | | | | | [place], | | | | | | [place] [address] | | | | | | [phone] | | | +--------+ + + + [...]
--- OUTSIDE RECORDS SUMMARY | ~2020-07-07 | XMS | Encounter Summary ---
Demographics + + + | Address | [address] | | | [place] [address] | + + + | Home Phone | | + + + | Preferred Language | Unknown | + + + | Marital Status | | + + + | Faith Affiliation | NON | + + + | Race | or | + + + | Ethnic Group | Not or | + + + Author + + + | Author | [facility] [employer] [facility] | + + + | Organization | [facility] [employer] [facility] | + [...] Team Providers + +------+ + | Care Labor Delivery Rn Name | Role | Phone | + [...] | Prescription | | 2012 | | [place]/Ophthalmol | MD Perry | | | | | leon at [facility] [address] | | | | | [address] [facility] for | | | | | | Health and Healing, | | | | | | Building | | | | | | Floor [place], [place] | | | | | | [address] | | | | | | [phone] | | | +--------+ + + + [...]
--- OUTSIDE RECORDS SUMMARY | ~2020-07-07 | XMS | Encounter Summary ---
Demographics + + + | Address | [address] | | | [place] [address] | + + + | Home Phone | | + + + | Preferred Language | Unknown | + + + | Marital Status | | + + + | Rastafari Affiliation | Unknown | + + + | Race | Unknown | + + + | Ethnic Group | Unknown | + + + Author + + + | Author | [facility] | | | and [place] | + + + | Organization | [facility] | | | and [place] [...] Team Providers + +------+ + | Care State Federal Relations Deputy Director Name | Role | Phone | + +------+ + PCP | Unavailable | + +------+ + Encounter Details +--------+ + + + + | Date | Type | Department | Care Team | Description | +--------+ + + + + | 10/02/ | Hospital | [facility] | | | | 1991 | Encounter | MED CTR [facility] | | | | | | HEALTH [address] | | | | | | [place], | | | | | | [place] [address] | | | | | | [phone] | | | +--------+ + + + [...]
--- OUTSIDE RECORDS SUMMARY | ~2020-07-07 | XMS | Encounter Summary ---
Demographics + + + | Address | [address] | | | [place] [address] | + + + | Home Phone | | + + + | Preferred Language | Unknown | + + + | Marital Status | | + + + | Rastafarian Affiliation | NON | + + + | Race | or | + + + | Ethnic Group | Not or | + + + Author + + + | Author | [facility] [employer] [facility] | + + + | Organization | [facility] [employer] [facility] | + + + | Address | Unknown | + + + | Phone | Unavailable | + + + Support + + +---------+ + | Name | Relationship | Address | Phone | + + +---------+ + | Ruby Au | ECON | Unknown | | + + +---------+ + Care Team Providers + +------+ + | Care Scrap Piler Name | Role | Phone | + [...] | | [place] Mailcode:[id number] | [address] [place], | | | | | [facility] | [place] [address] | | | | | [place], [place] | | | | | | [address] | | | | | | [phone] | | | +--------+ + + + [...]
--- OUTSIDE RECORDS SUMMARY | ~2020-07-07 | XMS | Encounter Summary ---
Demographics + + + | Address | [address] | | | [place] [address] | + + + | Home Phone | | + + + | Preferred Language | Unknown | + + + | Marital Status | | + + + | Sabianist Affiliation | Unknown | + + + | Race | Unknown | + + + | Ethnic Group | Unknown | + + + Author + + + | Author | [facility] | | | and [place] | + + + | Organization | [facility] | | | and [...] Team Providers + +------+ + | Care Maintenance Department Manager Name | Role | Phone | + +------+ + PCP | Unavailable | + +------+ + Encounter Details +--------+ + + + + | Date | Type | Department | Care Team | Description | +--------+ + + + + | 07/19/ | Hospital | [facility] | Vern Rooney, | | | 1990 - | Encounter | MED CTR MED ONC | [address] | | | | | [address] | [place] | | | 07/21/ | | [place] [address] | [address] | | | 1990 | | [phone] | | | +--------+ + + + [...]
--- OUTSIDE RECORDS SUMMARY | ~2020-07-07 | XMS | Encounter Summary ---
Demographics + + + | Address | [address] | | | [place] [address] | + + + | Home Phone | | + + + | Preferred Language | Unknown | + + + | Marital Status | | + + + | Presybeterian Affiliation | Unknown | + + + | Race | Unknown | + + + | Ethnic Group | Unknown | + + + Author + + + | Author | [facility] | | | and [place] | + + + | Organization | [facility] | | | and [...] Team Providers + +------+ + | Care Controller [place] Name | Role | Phone | + +------+ + PCP | Unavailable | + +------+ + Encounter Details +--------+ + + + + | Date | Type | Department | Care Team | Description | +--------+ + + + + | 06/20/ | Hospital | [facility] | Yovanny Suazo, | | | 1991 | Encounter | MED CTR [facility] | MD [address] | | | | | [facility] [address] | [address] | | | | | [place], | [place] [address] | | | | | [place] [address] | [phone] | | | | | [phone] | | | +--------+ + + + [...]
--- OUTSIDE RECORDS SUMMARY | ~2020-07-07 | XMS | Encounter Summary ---
Demographics + + + | Address | [address] | | | [place] [address] | + + + | Home Phone | | + + + | Preferred Language | Unknown | + + + | Marital Status | | + + + | Holiness Affiliation | Unknown | + + + | Race | Unknown | + + + | Ethnic Group | Unknown | + + + Author + + + | Author | [facility] | | | and [place] | + + + | Organization | [facility] | | | and [...] Team Providers + +------+ + | Care Reinforcer Name | Role | Phone | + +------+ + PCP | Unavailable | + +------+ + Encounter Details +--------+ + + + + | Date | Type | Department | Care Team | Description | +--------+ + + + + | 08/16/ | Hospital | [facility] | | | | 1990 | Encounter | MED CTR EMERGENCY | | | | | | CENTER [address] | | | | | | [place] | | | | | | [address] | | | | | | [phone] | | | +--------+ + + + [...]
--- OUTSIDE RECORDS SUMMARY | ~2020-07-07 | XMS | Encounter Summary ---
Demographics + + + | Address | [address] | | | [place] [address] | + + + | Home Phone | | + + + | Preferred Language | Unknown | + + + | Marital Status | | + + + | Holiness Affiliation | Unknown | + + + | Race | Unknown | + + + | Ethnic Group | Unknown | + + + Author + + + | Author | [facility] | | | and [place] | + + + | Organization | [facility] | | | and [...] Team Providers + +------+ + | Care Offset Plate Maker Name | Role | Phone | + +------+ + PCP | Unavailable | + +------+ + Encounter Details +--------+ + + + + | Date | Type | Department | Care Team | Description | +--------+ + + + + | 04/18/ | Hospital | [facility] | | | | 1991 | Encounter | MED CTR EMERGENCY | | | | | | CENTER [address] | | | | | | [place] | | | | | | [address] | | | | | | [phone] | | | +--------+ + + + [...]
--- OUTSIDE RECORDS SUMMARY | ~2020-07-07 | XMS | Encounter Summary ---
Demographics + + + | Address | [address] | | | [place] [address] | + + + | Home Phone | | + + + | Preferred Language | Unknown | + + + | Marital Status | | + + + | Methodist Affiliation | Unknown | + + + | Race | Unknown | + + + | Ethnic Group | Unknown | + + + Author + + + | Author | [facility] | | | and [place] | + + + | Organization | [facility] [...] Providers + +------+ + | Care Clinical Specialist Medical Device Name | Role | Phone | + +------+ + PCP | Unavailable | + +------+ + Encounter Details +--------+ + + + + | Date | Type | Department | Care Team | Description | +--------+ + + + + | 05/25/ | Hospital | [facility] | | | | 1991 | Encounter | MED CTR [facility] | | | | | | HEALTH [address] | | | | | | [place], | | | | | | [place] [address] | | | | | | [phone] | | | +--------+ + + + [...]
--- OUTSIDE RECORDS SUMMARY | ~2020-07-07 | XMS | Encounter Summary ---
Demographics + + + | Address | [address] | | | [place] [address] | + + + | Home Phone [...] Author | [facility] [employer] [facility] | + + + | Organization | [facility] [employer] [facility] | + + + | Address | Unknown | + + + | Phone | Unavailable | + + + Support + + +---------+ + | Name | Relationship | Address | Phone | + + +---------+ + | Ruby Au | ECON | Unknown | | + + +---------+ + Care Team Providers + +------+ + | Care Project Scheduler Name | Role | Phone | + [...] | +--------+ + + + + | /03/ | Telephone | [facility] | Julieta Mcgrath, | Telephone follow-up | | 2014 | | [place] | [address] | | | | | Neuro-Ophthalmology | [place], [place] | | | | | at [facility] [address] | [address] | | | | | Ave [facility] | [phone] | | | | | [place] | | | | | | [facility] | | | | | | Floor [place], [place] | | | | | | [address] | | | | | | [phone] | | | +--------+ + + + [...]
--- OUTSIDE RECORDS SUMMARY | ~2020-07-07 | XMS | Encounter Summary ---
Demographics + + + | Address | [address] | | | [place] [address] | + + + | Home Phone [...] Author | [facility] [email or web address] [facility] | + + + | Organization | [facility] [email or web address] [facility] [...] Team Providers + +------+ + | Care Crew Mess Attendant Name | Role | Phone | [...] Cerebri | | 2006 | Visit | [place] | | (Primary Dx) | | | | Neuro-Ophthalmology | | | | | | [address] [facility] | | | | | | Mailcode: CE | | | | | | [place] [address] | | | | | | [phone] | | | +--------+---------+ + + + [...] Referred by: CASIMIRO PAYTON MD [address] [place] [address] Symptoms: She has not been taking her [...] I will see her in a mo nt. I do not think that she is at risk of any further vision loss as long as she is taking the medication. Brad Currie MD Neuro-Ophthalmology and Cerebrovascular Disease Psychological Aide of Ophthalmology, Neurology, and Neurosurgery documented in [...]
--- OUTSIDE RECORDS SUMMARY | ~2020-07-07 | XMS | Encounter Summary ---
Demographics + + + | Address | [address] | | | [place] [address] | + + + | Home Phone | | + + + | Preferred Language | Unknown | + + + | Marital Status | | + + + | Spiritism Affiliation | NON | + + + | Race | or | + + + | Ethnic Group | Not or | + + + Author + + + | Author | [facility] | + + + | Organization | [facility] | + + + | Address | Unknown | + + + | Phone | Unavailable | + + + Support + + +---------+ + | Name | Relationship | Address | Phone | + + +---------+ + | Ruby Au | ECON | Unknown | | + + +---------+ + Care Team Providers + +------+ + | Care Sole Filler Name | Role | Phone | + [...] | | | | | [address] [place] for | [address] | | | | | Health and Healing, | [place], [place] | | | | | | [address] | | | | | Floor [place], [place] | | | | | | [address] | | | | | | [phone] | | | +--------+ + + + [...]
--- OUTSIDE RECORDS SUMMARY | ~2020-07-07 | XMS | Encounter Summary ---
Demographics + + + | Address | [address] | | | [place] [address] | + + + | Home Phone [...] + | Organization | [facility] | | [...] Providers + +------+ + | Care Supervisor Mold Yard Name | Role | Phone | + +------+ + PCP | Unavailable | + +------+ + Encounter Details +--------+ + + + + | Date | Type | Department | Care Team | Description | +--------+ + + + + | 01/01/ | Hospital | [facility] | [place], | | | 2009 | Encounter | MED CTR EMERGENCY | Brad Yu MD [address] | | | | | [place] [address] | [place] [facility] | | | | | [place] | [place] [address] | | | | | [address] | [phone] | | | | | [phone] | | | +--------+ + + + [...]
--- OUTSIDE RECORDS SUMMARY | ~2020-07-07 | XMS | Encounter Summary ---
Demographics + + + | Address | [address] | | | [place] [address] | + + + | Home Phone [...] Organization | [facility] | | | and [place] [...] Team Providers + +------+ + | Care Fly Frame Tender Name | Role | Phone | + +------+ + PCP | Unavailable | + +------+ + Encounter Details +--------+ + + + + | Date | Type | Department | Care Team | Description | +--------+ + + + + | 11/22/ | Hospital | [facility] | | | | 1995 | Encounter | MED CTR EMERGENCY | | | | | | CENTER [address] | | | | | | [place] | | | | | | [address] | | | | | | [phone] | | | +--------+ + + + [...]
--- OUTSIDE RECORDS SUMMARY | ~2020-07-07 | XMS | Encounter Summary ---
Demographics + + + | Address | [address] | | | [place] [address] | + + + | Home Phone | | + + + | Preferred Language | Unknown | + + + | Marital Status | | + + + | Sabianist Affiliation | NON | + + + | Race | or | + + + | Ethnic Group | Not or | + + + Author + + + | Author | [facility] | + + + | Organization | [facility] [employer] [facility] | + + [...] Providers + +------+ + | Care Continuous Yarn Dyeing Machine Operator Name | Role | Phone [...] Cerebri | | 2006 | Visit | [place] | | (Primary Dx) | | | | Neuro-Ophthalmology | | | | | | [address] [facility] | | | | | | Mailcode: PATTI | | | | | | [place] [address] | | | | | | [phone] | | | +--------+---------+ + + + [...] Evaluation 03/27/2007 Referred by: CASIMIRO PAYTON MD [address] [place] [address] Per [facility] chart note taken this morning by . Symptoms: Patient specific problem noted by patient: transient visual loss HPI: 31 y.o. year old female from [place] : Patient presents with: Transient visual loss [...] negative Pulmonary: negative GI: Problems due to intermission coordinator use of tylenol/ibuprofen. : negative Musculoskeletal: negative [...] Brad Currie MD Neuro-Ophthalmology and Cerebrovascular Disease Jewelry Salesperson of Ophthalmology, Neurology, and Neurosurgery documented in this encounter Plan of Treatment + + +--------+ + + | Name | Type | Priori | Associated Diagnoses | Order Schedule | | | | ty | | | + + +--------+ + + | RI VISUAL FIELD | Procedures | Routin | Pseudotumor | Ordered: 03/27/2007 | | EXAM,EXTENDED | | e | Cerebri | | + + +--------+ + + documented as of this encounter Visit Diagnoses + + | Diagnosis | + + | Pseudotumor cerebri - Primary Benign intracranial hypertension | + + documented in this encounter
--- OUTSIDE RECORDS SUMMARY | ~2020-07-07 | XMS | Encounter Summary ---
Demographics + + + | Address | [address] | | | [place] [address] | + + + | Home Phone | | + + + | Preferred Language | Unknown | + + + | Marital Status | | + + + | Hindu Affiliation | Unknown | + + + | Race | Unknown | + + + | Ethnic Group | Unknown | + + + Author + + + | Author | [facility] | | | and [place] | + + + | Organization | [facility] | | | and [...] Providers + +------+ + | Care Motor Overhauler Name | Role | Phone | + +------+ + | Amanda Herzog PA-C | PCP | | + +------+ + Encounter Details +--------+ + + + + | Date | Type | Department | Care Team | Description | +--------+ + + + + | 12/27/ | Abstract | [facility] | [place], | | | 2019 | | PHYSIATRY [address] | MD [address] | | | | | [address] | [place] | | | | | [place] | [place] [address] | | | | | [address] | | | | | | [phone] | | | +--------+ + + + [...]
--- OUTSIDE RECORDS SUMMARY | ~2020-07-07 | XMS | Encounter Summary ---
Demographics + + + | Address | [address] | | | [place] [address] | + + + | Home Phone [...] + + | Author | [facility] | | | and [place] | + + + | Organization | [facility] | | | and [...] Providers + +------+ + | Care Chicken And Fish Butcher Name | Role | Phone | + +------+ + PCP | Unavailable | + +------+ + Encounter Details +--------+ + + + + | Date | Type | Department | Care Team | Description | +--------+ + + + + | 09/30/ | Hospital | [facility] | | | | 1991 | Encounter | MED CTR [facility] | | | | | | HEALTH [facility] [address] | | | | | | [place], | | | | | | [place] [address] | | | | | | [phone] | | | +--------+ + + + [...]
--- OUTSIDE RECORDS SUMMARY | ~2020-07-07 | XMS | Encounter Summary ---
Demographics + + + | Address | [address] | | | [place] [address] | + + + | Home Phone [...] | [facility] | + + + | Organization | [facility] [...] Team Providers + +------+ + | Care Pilot Fuel Engineer Name | Role | Phone | [...] - Headache | | 2008 | | [facility] [address] | [address] | | | | | Ave [place] for | [place], [place] | | | | | Health and Healing, | [address] | | | | | [facility] 1, 8th | [phone] | | | | | floor [place], [place] | | | | | | [address] | | | | | | [phone] | | | +--------+ + + + [...]
--- OUTSIDE RECORDS SUMMARY | ~2020-07-07 | XMS | Clinical Summary ---
Demographics + + + | Address | [address] | | | [place] [address] | + + + | Home Phone | | + + + | Preferred Language | Unknown | + + + | Marital Status | | + + + | Scientologist Affiliation | Unknown | + + + | Race | Unknown | + + + | Ethnic Group | Unknown | + + + Author + + + | Author | [facility] | | | and [place] | + + + | Organization | [facility] | | [...] Providers + +------+ + | Care Senior Security Architect Name | Role | Phone | [...] +---------+--------+ | [place] | MEDICA | [id number] | 11/09/ | [phone] | | Medica | | | [place] | | 2018-P | 2 | | id | | | PLUS | | resent | | | | + +--------+ +--------+ +---------+--------+ | [facility] | IHS | [id number] | 11/08/ | | | Indemn | [...] | + +--------+ +--------+ + + | RoeAnnabella Jt | Person | Self | [birth year] | | [address] | | | al/Fam | | 1975 | [phone] | [place] [address] | | | rene | | | 5 (Home) | | + +--------+ +--------+ + + Advance Directives + + + + + | Type | Date Recorded | Patient | Explanation | | | | Health Navigator | | + + + + + | Power of | | | | | Director Of Business Systems | | | | + + + + + | Advance | | | | | Directive | | | | + + + + +
--- OUTSIDE RECORDS SUMMARY | ~2020-07-07 | XMS | Encounter Summary ---
Demographics + + + | Address | [address] | | | [place] [address] | + + + | Home Phone | | + + + | Preferred Language | Unknown | + + + | Marital Status | | + + + | Anglican Affiliation | NON | + + + | Race | or | + + + | Ethnic Group | Not or | + + + Author + + + | Author | [facility] | + + + | Organization | [facility] | + + + | Address | Unknown | + + + | Phone | Unavailable | + + + Support + + +---------+ + | Name | Relationship | Address | Phone | + + +---------+ + | Ruby Au | ECON | Unknown | | + + +---------+ + Care Team Providers + +------+ + | Care Usps Letter Carrier Name | Role | Phone [...] MD | | | 2010 | | [place]/Ophthalmol | | | | | | ogy at [facility] [address] | | | | | | [address] [facility] for | | | | | | Health and Healing, | | | | | | Building | | | | | | Floor [place], [place] | | | | | | [address] | | | | | | [phone] | | | +--------+ + + + [...]
--- OUTSIDE RECORDS SUMMARY | ~2020-07-07 | XMS | Encounter Summary ---
Demographics + + + | Address | [address] | | | [place] [address] | + + + | Home Phone | | + + + | Preferred Language | Unknown | + + + | Marital Status | | + + + | Restoration Affiliation | Unknown | + + + | Race | Unknown | + + + | Ethnic Group | Unknown | + + + Author + + + | Author | [facility] | | | and [place] | + + + | Organization | [facility] | | | and [place] [...] Team Providers + +------+ + | Care Cardiac Cath Tech Name | Role | Phone | + +------+ + PCP | Unavailable | + +------+ + Encounter Details +--------+ + + + + | Date | Type | Department | Care Team | Description | +--------+ + + + + | 05/21/ | Hospital | [facility] | | | | 1991 | Encounter | MED CTR [facility] | | | | | | HEALTH [address] | | | | | | [place], | | | | | | [place] [address] | | | | | | [phone] | | | +--------+ + + + [...]
--- OUTSIDE RECORDS SUMMARY | ~2020-07-07 | XMS | Encounter Summary ---
Demographics + + + | Address | [address] | | | [place] [address] | + + + | Home Phone [...] + | Author | [facility] | + + + | Organization | [facility] | + + + | Address | Unknown | + + + | Phone | Unavailable | + + + Support + + +---------+ + | Name | Relationship | Address | Phone | + + +---------+ + | Ruby Au | ECON | Unknown | | + + +---------+ + Care Team Providers + +------+ + | Care Chief Orthoptist Name | Role | Phone | + +------+ + | Brenden Benaivdes MD | PCP | | + +------+ [...] Other | | 2005 | | [facility] | [address] | | | | | [address] Mailcode:OP14B | [place], [place] | | | | | [facility] | [address] | | | | | [place], [place] | | | | | | [address] | | | | | | [phone] | | | +--------+ + + + [...]
--- OUTSIDE RECORDS SUMMARY | ~2020-07-07 | XMS | Encounter Summary ---
Demographics + + + | Address | [address] | | | [place] [address] | + + + | Home Phone [...] Author | [facility] | + + + | Organization | [facility] | + + + | Address | Unknown | + + + | Phone | Unavailable | + + + Support + + +---------+ + | Name | Relationship | Address | Phone | + + +---------+ + | Ruby Au | ECON | Unknown | | + + +---------+ + Care Team Providers + +------+ + | Care Heel Seat Flap Stapler Name | Role | Phone | + +------+ + | Dennis Maddox | PCP | | + +------+ + Encounter Details +--------+ + + + + | Date | Type | Department | Care Team | Description | +--------+ + + + + | 03/15/ | Telephone | [facility] | Ronaldo Martin MD | | | 2012 | | [place]/Ophthalmol | [facility] [place] | | | | | ogjaneen at [facility] [address] | [address] [place] [address] | | | | | [facility] | [place] [address] | | | | | Health and Healing, | [phone] | | | | | [facility] | | | | | | Floor [place], [place] | | | | | | [address] | | | | | | [phone] | | | +--------+ + + + [...]
--- OUTSIDE RECORDS SUMMARY | ~2020-07-07 | XMS | Encounter Summary ---
Demographics + + + | Address | [address] | | | [place] [address] | + + + | Home Phone [...] + | Author | [facility] | + + + | Organization | [facility] | + + + | Address | Unknown | + + + | Phone | Unavailable | + + + Support + + +---------+ + | Name | Relationship | Address | Phone | + + +---------+ + | Ruby Au | ECON | Unknown | | + + +---------+ + Care Team Providers + +------+ + | Care Industrial Laborer Name | Role | Phone | [...] | | | Ave [facility] for | [employer], [place] | | | | | Health and Healing, | [address] | | | | | [facility] | [phone] | | | | | floor [employer], [place] | | | | | | [address] | | | | | | [phone] | | | +--------+---------+ + + + [...]
--- OUTSIDE RECORDS SUMMARY | ~2020-07-07 | XMS | Encounter Summary ---
Demographics + + + | Address | [address] | | | [place] [address] | + + + | Home Phone [...] | [facility] | + + + | Organization | [facility] | + [...] Team Providers + +------+ + | Care Bookkeepers Supervisor Name | Role | Phone | [...] Request (Pt | | 2006 | | [place] | Cassi Hammer | requests more pain | | | | Oculoplastics at | [place], [place] | medication) | | | | [address] | [address] | | | | | [address] | [phone] | | | | | Eye [place] | | | | | | [facility], 5th floor | | | | | | [place] [address] | | | | | | [phone] | | | +--------+--------+ + + + [...]
--- OUTSIDE RECORDS SUMMARY | ~2020-07-07 | XMS | Encounter Summary ---
Demographics + + + | Address | [address] | | | [place] [address] | + + + | Home Phone | | + + + | Preferred Language | Unknown | + + + | Marital Status | | + + + | Jew Affiliation | Unknown | + + + | Race | Unknown | + + + | Ethnic Group | Unknown | + + + Author + + + | Author | [facility] | | | and [place] | + + + | Organization | [facility] | | | and [...] Providers + +------+ + | Care Screw Eye Assembler Name | Role | Phone | + +------+ + PCP | Unavailable | + +------+ + Encounter Details +--------+ + + + + | Date | Type | Department | Care Team | Description | +--------+ + + + + | 06/22/ | Hospital | [facility] | Yovanny Suazo, | | | 1991 | Encounter | MED CTR [facility] | MD [address] | | | | | [facility] [address] | [address] | | | | | [place], | [place] [address] | | | | | [place] [address] | [phone] | | | | | [phone] | | | +--------+ + + + [...]
--- OUTSIDE RECORDS SUMMARY | ~2020-07-07 | XMS | Encounter Summary ---
Demographics + + + | Address | [address] | | | [place] [address] | + + + | Home Phone | | + + + | Preferred Language | Unknown | + + + | Marital Status | | + + + | Mandaeism Affiliation | Unknown | + + + | Race | Unknown | + + + | Ethnic Group | Unknown | + + + Author + + + | Author | [facility] | | | and [place] | + + + | Organization | [facility] [...] Team Providers + +------+ + | Care Cigar Packer And Picker Name | Role | Phone | + +------+ + PCP | Unavailable | + +------+ + Encounter Details +--------+ + + + + | Date | Type | Department | Care Team | Description | +--------+ + + + + | 07/17/ | Hospital | [facility] | Domingo Darby, | | | 2010 | Encounter | HEART MED CTR | [address] | | | | | EMERGENCY CENTER | [place] [address] | | | | | [address] | [phone] | | | | | [place], [place] | | | | | | [address] | | | | | | [phone] | | | +--------+ + + + [...] documented as of this encounter ED Notes Maryellen Ramos ARNP - 10/03/2013 12:05 AM PST PATIENT NAME: ANNABELLA STEWART TREATMENT DATE: 07/17/2011 ADMISSION DATE: 07/17/2011 Age/Sex: 35Y / F : 1975 [id number] / [id number] CHIEF COMPLAINT: Anxiety. HISTORY OF PRESENT ILLNESS: The patient comes in with having increased anxiety. She was fl own here last week when her mother was admitted to the ICU with cirrhosis and hepatitis C. She was placed on and life-support and she has had increased anxiety and having trouble relaxing and calming down since. She had to make a choice to take her mom off lif e-support or keep her on. She says she feels short of breath at times. She says she has not been sleeping well. She says she has increased heartburn. She does not her reflux medicati ons normally. She denies any chest pain. No nausea, vomiting, or diarrhea. She has increasi ng stress. No headaches or visual changes. She has no fever or complaints of chest pain. PAST MEDICAL HISTORY: Significant for reflux, anxiety and asthma. PAST SURGICAL HISTORY: Appendectomy removal, gallbladder removal, wrist surgery, and tonsi llectomy. FAMILY HISTORY: Significant for hypertension and kidney disease. SOCIAL HISTORY: Positive for tobacco, negative for alcohol, negative for drugs. MEDICATIONS: Losartan, ibuprofen, Soma, Prilosec and albuterol. ALLERGIES: Codeine and cephalexin. REVIEW OF SYSTEMS: A full 10 system review was done and otherwise negative and noncontribu tory, stated in the History of Present Illness. PHYSICAL EXAMINATION: GENERAL: Alert, 35-year-old female patient in no acute distress. VITAL SIGNS: Blood pressu re 128/75, pulse 98, respiratory rate 20, temperature 98.8 degrees orally. Oxygen saturatio ns 95% on room air. INTEGUMENT: [place], warm and dry. No lesions, lacerations or abrasions. HEENT: Normocephalic, atraumatic. Pupils are equal, round, and reactive to light and accomm odation. EOMs are intact. MUSCULOSKELETAL: Moves all extremities well. HEART: Regular rate and rhythm. LUNGS: Clear. ABDOMEN: Benign. GENITOURINARY/RECTAL: Deferred. Jt STEWART ADM:07/17/11 [id number] DEP ER EMERGENCY DEPARTMENT RECORD [id number] [facility] JASPER Dorantes E-Sign: [facility] MD Lizeth Smith THIS REPORT IS CONFIDENTIAL AND NOT TO BE RELEASED WITHOUT PROPER AUTHORIZATION. [facility] NEUROLOGIC: Intact. PSYCHIATRIC: Calm and cooperative. EMERGENCY DEPARTMENT COURSE: Klonopin 1 mg p.o. was given. She felt much better at this po int and would like to go home. She was feeling more sedated at this point and calmer. DISCHARGE DIAGNOSES: Anxiety, situational stress. DISCHARGE INSTRUCTIONS: Follow up with primary care. Given a prescription for some Klonopi n 0.5 mg to use in the morning and 1 mg to use to help with sleep at night. Followup with [facility]. Return if symptoms worsen. Discharged stable. JASPER Mc MD P [facility] #[id number] cc: MD Maryellen Parker ARNP Electronically Signed 07/20/11 0136 [address] [place] MD Jt STEWART S ADM:07/17/11 [id number] [facility] EMERGENCY DEPARTMENT RECORD [id number] [facility] JASPER Dorantes E-Sign: [facility] MD Lizeth Smith THIS REPORT IS CONFIDENTIAL AND NOT TO BE RELEASED WITHOUT PROPER AUTHORIZATION.Electronica lly signed by JASPER Mc at 10/03/2013 10:53 AM PSTdocumented in this encounter Plan of Treatment Not on filedocumented as of this encounter Visit Diagnoses Not on filedocumented in this encounter"
--- OUTSIDE RECORDS SUMMARY | ~2020-07-07 | XMS | Encounter Summary ---
Demographics + + + | Address | [address] | | | [place] [address] | + + + | Home Phone | | + + + | Preferred Language | Unknown | + + + | Marital Status | | + + + | Alevism Affiliation | NON | + + + | Race | or | + + + | Ethnic Group | Not or | + + + Author + + + | Author | [facility] | + + + | Organization | [facility] | + + + | Address | Unknown | + + + | Phone | Unavailable | + + + Support + + +---------+ + | Name | Relationship | Address | Phone | + + +---------+ + | Ruby Au | ECON | Unknown | | + + +---------+ + Care Team Providers + +------+ + | Care Operator Receptionist Name | Role | Phone | [...] Erroneous Encounter | | 2007 | | [facility] | [facility] | - Disregard | | | | and Healing [address] | Neurosurgery [address] | | | | | [address] for | [address] | | | | | Health and Healing, | [place], [place] | | | | | Building | [address] | | | | | Floor [place], [place] | | | | | | [address] | | | | | | [phone] | | | +--------+ + + + [...]
--- OUTSIDE RECORDS SUMMARY | ~2020-07-07 | XMS | Encounter Summary ---
Demographics + + + | Address | [address] | | | [place] [address] | + + + | Home Phone [...] + + | Author | [facility] | + + + | Organization | [facility] free[facility] Science [facility] [...] Team Providers + +------+ + | Care Recreation Adviser Name | Role | Phone | + [...] | | | | | | | [facility] | | | | | | | Hospital | | | | | | | [place], [place] | | | | | | | [address] | | | | | | | Phone: | | | | | | | [phone] | | | | | | | Fax: | | | | | | | [phone] | +--------+--------+ + + + + Encounter Details +--------+ + + + + | Date | Type | Department | Care Team | Description | +--------+ + + + + | 05/07/ | Hospital | [facility] [address] | [place]y [place], | | | 2007 | Encounter | [address] | MD [place] | | | | | [facility] [facility] | MD Holden,PhD | | | | | [place] | | | | | | [address] | | | | | | [phone] | | | +--------+ + + + [...] SameSurgeon: | | | | | | Wnidy Dennis, | | | | | | M.D.Groover Operator surgeon: . | | | | | [...] | | | | | cervical region, DIDI and | | | | | | [...] | | | | | | vein with6-Honduran Envoy | | | | | | [...] artery. | | | | | | [id number] Berenstein | | | | | | [...] | | | | | with a 6-Honduran Envoy | | | | | | [...] | | + +---------+ + + | [facility] DEPARTMENT OF | | | [...]
--- OUTSIDE RECORDS SUMMARY | ~2020-07-07 | XMS | Encounter Summary ---
Demographics + + + | Address | [address] | | | [place] [address] | + + + | Home Phone [...] + | Author | [facility] | + + + | Organization | [facility] | + + + | Address | Unknown | + + + | Phone | Unavailable | + + + Support + + +---------+ + | Name | Relationship | Address | Phone | + + +---------+ + | Ruby Au | ECON | Unknown | | + + +---------+ + Care Team Providers + +------+ + | Care Automobile Rental Clerk Name | Role | Phone | [...] | Visit | Medicine Clinic at | SENIOR ACCOUNTANT CPA [address] [facility] | Pre-Operative | | | | [facility] 4th Floor [address] [facility] [address] | Examination (Primary | | | | [address] | [place], [place] | Dx); Pseudotumor | | | | Mailcode: CH4S | [address] | Cerebri; Encounter | | | | [facility] | [phone] | for Long-Term | | | | and Healing, | | (Current) Use of | | | | Building 1,4th Floor | | Anticoagulants | | | | [place], [place] | | | | | | [address] | | | | | | [phone] | | | +--------+---------+ + + + [...] Scanned [facility] [address] [place] [address] And [facility],[address] [place] [phone] documented in this encou nter Plan of Treatment + + +--------+ + + | Name | Type | Priori | Associated Diagnoses | Order Schedule | | | | ty | | | + + +--------+ + + | [place] COLLECTION VENOUS | Procedures | Routin | [...] | + + + + + | [facility] DEPARTMENT OF | [address] [facility] | [place] [address] | | | PATHOLOGY | [address] | | | + + + + + | [facility] DEPARTMENT OF | [address] [facility] | [place] [address] | | | PATHOLOGY | [address] [...] | + + + + + | [facility] | [address] | [place] [address] | | | PATHOLOGY | [address] | | | + + + + + | [facility] | [address] | [place] [address] | | | PATHOLOGY | [address] [...] | + + + + + | [facility] | [address] [facility] | [place] [address] | | | PATHOLOGY | [address] | | | + + + + + | [facility] | [address] [facility] | [place] [address] | | | PATHOLOGY | [address] [...] | + + + + + | [facility] | [address] [facility] | [place] [address] | | | PATHOLOGY | [address] | | | + + + + + | [facility] | [address] [facility] | [place] [address] | | | PATHOLOGY | [address] [...] Performed At | + + + | [id number] Estimated GFR > 60 mL/min/1.73 sq m if non- | [facility] | | Algerian [id number] Estimated GFR > 60 mL/min/1.73 sq m if | DEPARTMENT OF | | Algerian GFR is estimated using the MDRD equation [...] | + + + + + | [facility] DEPARTMENT OF | [address] | [place] [address] | | | PATHOLOGY | [address] | | | + + + + + | [facility] DEPARTMENT OF | [address] | [place] [address] | | | PATHOLOGY | [address] [...] | + + + + + | [facility] DEPARTMENT OF | [address] | [place] [address] | | | PATHOLOGY | [address] | | | + + + + + | [facility] | [address] | [place] [address] | | | PATHOLOGY | [address] | | | + + + + + documented in this encounter Visit Diagnoses + + | Diagnosis | + + | Other specified pre-operative examination - Primary | + + | Pseudotumor cerebri Benign intracranial hypertension | + + | 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
--- OUTSIDE RECORDS SUMMARY | ~2020-07-07 | XMS | Encounter Summary ---
Demographics + + + | Address | [address] | | | [place] [address] | + + + | Home Phone [...] [facility] | + + + | Organization | [facility] [employer] Science [facility] [...] Team Providers + +------+ + | Care Planetarium Technician Name | Role | Phone | [...] Telephone follow-up | | 2014 | | [place] | [address] | | | | | Neuro-Ophthalmology | [place], [place] | | | | | at [facility] [address] | [address] | | | | | Ave [facility] | [phone] | | | | | [place] | | | | | | [facility] | | | | | | Floor [place], [place] | | | | | | [address] | | | | | | [phone] | | | +--------+ + + + [...]
--- OUTSIDE RECORDS SUMMARY | ~2020-07-07 | XMS | Encounter Summary ---
Demographics + + + | Address | [address] | | | [place] [address] | + + + | Home Phone | | + + + | Preferred Language | Unknown | + + + | Marital Status | | + + + | Church Affiliation | NON | + + + | Race | or | + + + | Ethnic Group | Not or | + + + Author + + + | Author | [facility] [facility] | + + + | Organization | [facility] [employer] [facility] | + + + | Address | Unknown | + + + | Phone | Unavailable | + + + Support + + +---------+ + | Name | Relationship | Address | Phone | + + +---------+ + | Ruby Au | ECON | Unknown | | + + +---------+ + Care Team Providers + +------+ + | Care Angle Shear Operator Name | Role | Phone | [...] | | | REFERRAL TO | | [place], [place] | | | | | NEUROINTERVE | | [address] | | | | | NTIONAL | | Phone: | | | | | RADIOLOGY | | [phone] | | | | | PRACTICE | | Fax: | | | | | | | [phone] | +--------+--------+ + + + + Reason [...] Dx) | | | | Mailcode:OP14B | [place], [place] | | | | | Outpatient Clinic | [address] | | | | | Building [place], | [phone] | | | | | [place] [address] | | | | | | [phone] | | | +--------+---------+ + + + [...] resident s note. CASIMIRO PAYTON MD NEUROSURGERY [address] [facility] [place] [phone] hPascual hanley - 12:00 PM PDT CC: CAPONE and [...] spots" and "tunnel vision." Last saw an block feeder in [facility] 2 months ago. Reportedl y, this showed that her OS vision was worse - no reports available to me at this time. Was a lso admitted to the [facility] for CAPONE about a month ago. Reportedly [...] Patient was also given a prescription for [place] for CAPONE until she establishs care with [...]
--- OUTSIDE RECORDS SUMMARY | ~2020-07-07 | XMS | Encounter Summary ---
Demographics + + + | Address | [address] | | | [place] [address] | + + + | Home Phone | | + + + | Preferred Language | Unknown | + + + | Marital Status | | + + + | Rastafari Affiliation | NON | + + + | Race | or | + + + | Ethnic Group | Not or | + + + Author + + + | Author | [email or web address] [facility] | + + + | Organization | [facility] [employer] [facility] [...] + +------+ + | Care Civil Engineering Professional Name | Role | Phone | [...] Cerebri | | 2006 | Visit | [place] | | (Primary Dx) | | | | Neuro-Ophthalmology | | | | | | [address] [facility] | | | | | | Mailcode: CE | | | | | | [place] [address] | | | | | | [phone] | | | +--------+---------+ + + + [...] Referred by: CASIMIRO PAYTON MD [address] [place] [address] Symptoms: She has not been taking her [...] Brad Currie MD Neuro-Ophthalmology and Cerebrovascular Disease Director Corporate Security of Ophthalmology, Neurology, and Neurosurgery documented in this encounter Plan of Treatment + + +--------+ + + | Name | Type | Priori | Associated Diagnoses | Order Schedule | | | | ty | | | + + +--------+ + + | [place] VISUAL FIELD | Procedures | Routin | Pseudotumor | Ordered: 12/19/2006 | | EXAM,EXTENDED | | e | Cerebri | | + + +--------+ + + documented as of this encounter Visit Diagnoses + + | Diagnosis | + + | Pseudotumor cerebri - Primary Benign intracranial hypertension | + + documented in this encounter"
--- OUTSIDE RECORDS SUMMARY | ~2020-07-07 | XMS | Encounter Summary ---
Demographics + + + | Address | [address] | | | [place] [address] | + + + | Home Phone [...] + | Author | [facility] | + + + | Organization | [facility] MD Science [facility] [...] Team Providers + +------+ + | Care Rack Washer Name | Role | Phone | [...] Refill Request | | 2012 | | [place]/Ophthalmol | MD [place] | | | | | ramonjaneen at [facility] [address] | | | | | | [address] [facility] | | | | | | Health and Healing, | | | | | | [facility] | | | | | | Floor [place], [place] | | | | | | [address] | | | | | | [phone] | | | +--------+--------+ + + + [...]
--- OUTSIDE RECORDS SUMMARY | ~2020-07-07 | XMS | Encounter Summary ---
Demographics + + + | Address | [address] | | | [place] [address] | + + + | Home Phone [...] | Author | [facility] [employer] [facility] | + + + | Organization | [facility] [employer] [facility] | [...] + +------+ + | Care Technical Support Intern Name | Role | Phone | [...] Report | | 2006 | | Center [place] [address] | | | | | Transcribed | [address] [facility] | | | | | | for Health and | | | | | | Healing, Building 2 | | | | | | [place], [place] | | | | | | [address] | | | | | | [phone] | | | +--------+ + + + [...] | 02/07/2007 12:00 AM PDT | | [id number] | | [id number] [place] [id number] | | | | Date: 02/07/2007 | | | | Attending Surgeon: Hay Hughes M.D. | | | | Auto Tire Recapper(s): Pascual Bermudez M.D. | | | | [...] and medial orbital | | septum. The clinical lab assistant retracted the orbital fat bag with [...] Hay Hughes M.D. | | | | / | | [id number] / [id number] / [id number] / [id number] | | | | | | | | cc: | | | | | | Brad Currie M.D. | | [facility] | | | | | | Brenden Benavides M.D. | | [facility] | | [address] [facility] [address] | | [place] [address] | | | | | | Electronically signed by Hay Hughes 02-12-2007 05:13:05 PM | | | | | + + documented in this encounter Visit Diagnoses Not on filedocumented in this encounter"
--- OUTSIDE RECORDS SUMMARY | ~2020-07-07 | XMS | Encounter Summary ---
Demographics + + + | Address | [address] | | | [place] [address] | + + + | Home Phone [...] + + + | Author | [facility] [employer] [facility] | + + + | Organization | [facility] | + [...] Team Providers + +------+ + | Care Wallpaper Consultant Name | Role | Phone | [...] [address] | | | | | | [facility] for | | | | | | Health and Healing, | | | | | | Building | | | | | | floor [place], [place] | | | | | | [address] | | | | | | [phone] | | | +--------+ + + + [...]
--- OUTSIDE RECORDS SUMMARY | ~2020-07-07 | XMS | Encounter Summary ---
Demographics + + + | Address | [address] | | | [place] [address] | + + + | Home Phone [...] | Organization | [facility] | | [...] Team Providers + +------+ + | Care Petroleum Geologist Name | Role | Phone | + +------+ + PCP | Unavailable | + +------+ + Encounter Details +--------+ + + + + | Date | Type | Department | Care Team | Description | +--------+ + + + + | 10/10/ | Hospital | [facility] | | | | 1991 | Encounter | [facility] | | | | | | HEALTH [facility] [address] | | | | | | [place], | | | | | | [place] [address] | | | | | | [phone] | | | +--------+ + + + [...]
--- OUTSIDE RECORDS SUMMARY | ~2020-07-07 | XMS | Encounter Summary ---
Demographics + + + | Address | [address] | | | [place] [address] | + + + | Home Phone [...] Author | [facility] | + + + | Organization | [facility] [employer] [facility] | + [...] Providers + +------+ + | Care Senior Ssis Developer Name | Role | Phone | + +------+ + | Dennis Maddox | PCP | | + +------+ + Encounter Details +--------+ + + + + | Date | Type | Department | Care Team | Description | +--------+ + + + + | 02/28/ | Emergency | [facility] Emergency | | | | 2013 - | | Department [address] | | | | | [address] | | | | 03/01/ | | [facility] | | | | 2013 | | [place], [place] | | | | | | [address] | | | | | | [phone] | | | +--------+ + + + [...]
--- OUTSIDE RECORDS SUMMARY | ~2020-07-07 | XMS | Encounter Summary ---
Demographics + + + | Address | [address] | | | [place] [address] | + + + | Home Phone [...] | Author | [facility] Care Team [facility] | + + + | Organization | [facility] [employer] [facility] | + [...] Team Providers + +------+ + | Care Sample Finisher Name | Role | Phone | + [...] Cerebri; | | 2005 | Visit | [place] | | Common Migraine | | | | Neuro-Ophthalmology | | without Mention of | | | | [address] | | Intractable Migraine | | | | Mailcode: CEI | | | | | | [place] [address] | | | | | | [phone] | | | +--------+---------+ + + + [...] 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
--- OUTSIDE RECORDS SUMMARY | ~2020-07-07 | XMS | Encounter Summary ---
Demographics + + + | Address | [address] | | | [place] [address] | + + + | Home Phone [...] + + | Author | [facility] | + + + | Organization | [facility] [employer] [facility] | [...] Providers + +------+ + | Care Industrial Hygiene Technician Name | Role | Phone | [...] | | | | | cerebri | [address] | | | | | | Procedures | Ave | | | | | | CONSULT TO | [place], [place] | | | | | | CEI | [address] | | | | | | | Phone: | | | | | | | [phone] | | | | | | | Fax: | | | | | | | [phone] | | +--------+--------+ + + + + [...] Cerebri | | 2005 | Visit | [facility] | [address] | (Primary Dx) | | | | Rd Mailcode:OP14B | [place], [place] | | | | | [facility] | [address] | | | | | [place], [place] | [phone] | | | | | [address] | | | | | | [phone] | | | +--------+---------+ + + + [...] Neuro-ophthalmology consultation. documented in this encounter Progress J Carlos Garcia - 09/05/2006 11:44 AM Karley Jt Au is a 31 y.o. female with a histor y of headaches. She was being treated for the headahces but then began to suffer visual lesley nges last January. She was referred to ophthalmology where she states that abnormalities on e xam were documented. This prompted a lumbar puncture which revealed elevated opening pressu re. Referral to Dr. Maloney in [place] where a lumboperitoneal shunt was placed and subsequently explanted due to infection and migration of the catheter tip from the peritoneal space. She feels that her symptoms were helped at the time of the placement of the shunt; the head aches and visual problems have worsened since shunt removal. She has opted to come to [facility] rather than to return to [place] based on travel convenience. Review of Systems: [...] brain without; Neuro-ophthalmology consultation. [facility] Plan of Treatment Not on filedocumented [...] | | + +---------+ + + | [facility] DEPARTMENT OF | | | | | RADIOLOGY | | | | + +---------+ + + documented in this encounter Visit Diagnoses + + | Diagnosis | + + | Pseudotumor cerebri - Primary Benign intracranial hypertension | + + documented in this encounter
--- OUTSIDE RECORDS SUMMARY | ~2020-07-07 | XMS | Encounter Summary ---
Demographics + + + | Address | [address] | | | [place] [address] | + + + | Home Phone [...] + + | Author | [facility] | + + + | Organization | [facility] Earth [employer] [facility] | + [...] Providers + +------+ + | Care Director Operating Name | Role | Phone | + +------+ + | Brenden Benavides MD | PCP | | + +------+ + Encounter Details +--------+ + + + + | Date | Type | Department | Care Team | Description | +--------+ + + + + | 01/05/ | Telephone | [facility] | Brad Currie MD | | | 2006 | | [place] | | | | | | Neuro-Ophthalmology | | | | | | [address] [facility] | | | | | | Mailcode: PATTI | | | | | | [place] [address] | | | | | | [phone] | | | +--------+ + + + [...]
--- OUTSIDE RECORDS SUMMARY | ~2020-07-07 | XMS | Encounter Summary ---
Demographics + + + | Address | [address] | | | [place] [address] | + + + | Home Phone [...] + + | Author | [facility] | + + + | Organization | [facility] | + + + | Address | Unknown | + + + | Phone | Unavailable | + + + Support + + +---------+ + | Name | Relationship | Address | Phone | + + +---------+ + | Ruby Au | ECON | Unknown | | + + +---------+ + Care Team Providers + +------+ + | Care Zipper Sewing Machine Operator Name | Role | Phone [...] | | | | | [place] for | [address] | | | | | Health and Healing, | [place], [place] | | | | | | [address] | | | | | Floor [place], [place] | | | | | | [address] | | | | | | [phone] | | | +--------+ + + + [...]
--- OUTSIDE RECORDS SUMMARY | ~2020-07-07 | XMS | Encounter Summary ---
Demographics + + + | Address | [address] | | | [place] [address] | + + + | Home Phone [...] + + | Author | [facility] [employer] [facility] | + + + | Organization | [facility] [employer] [facility] [...] Providers + +------+ + | Care Digester Capper Name | Role | Phone | + [...] Erroneous Encounter | | 2007 | | [facility] | [facility] | - Disregard | | | | and Healing [address] | Neurosurgery [address] | | | | | [address] Center for | [address] | | | | | Health and Healing, | [place], [place] | | | | | Building | [address] | | | | | Floor [place], [place] | | | | | | [address] | | | | | | [phone] | | | +--------+--------+ + + + [...]
--- OUTSIDE RECORDS SUMMARY | ~2020-07-07 | XMS | Encounter Summary ---
Demographics + + + | Address | [address] | | | [place] [address] | + + + | Home Phone [...] + + | Author | [facility] [employer] [facility] | + + + | Organization | [facility] [facility] | + + + | Address | Unknown | + + + | Phone | Unavailable | + + + Support + + +---------+ + | Name | Relationship | Address | Phone | + + +---------+ + | Ruby Au | ECON | Unknown | | + + +---------+ + Care Team Providers + +------+ + | Care District Ranger Name | Role | Phone | [...] | | | | | [place] for | [address] | | | | | Health and Healing, | [place], [place] | | | | | | [address] | | | | | Floor [place], [place] | | | | | | [address] | | | | | | [phone] | | | +--------+ + + + [...]
--- OUTSIDE RECORDS SUMMARY | ~2020-07-07 | XMS | Encounter Summary ---
Demographics + + + | Address | [address] | | | [place] [address] | + + + | Home Phone [...] | [facility] [...] Team Providers + +------+ + | Care Municipal Clerk Name | Role | Phone | + +------+ + PCP | Unavailable | + +------+ + Encounter Details +--------+ + + + + | Date | Type | Department | Care Team | Description | +--------+ + + + + | 09/07/ | Hospital | [facility] | | | | 1991 | Encounter | MED CTR EMERGENCY | | | | | | CENTER [address] | | | | | | [place] | | | | | | [address] | | | | | | [phone] | | | +--------+ + + + [...]
--- OUTSIDE RECORDS SUMMARY | ~2020-07-07 | XMS | Encounter Summary ---
Demographics + + + | Address | [address] | | | [place] [address] | + + + | Home Phone [...] | [facility] | + + + | Organization | [facility] [employer] [facility] | + + + | Address | Unknown | + + + | Phone | Unavailable | + + + Support + + +---------+ + | Name | Relationship | Address | Phone | + + +---------+ + | Ruby Au | ECON | Unknown | | + + +---------+ + Care Team Providers + +------+ + | Care Grocery Checker Name | Role | Phone | + [...] | | | REFERRAL TO | | [place], [place] | | | | | NEUROINTERVE | | [address] | | | | | NTIONAL | | Phone: | | | | | RADIOLOGY | | [phone] | | | | | PRACTICE | | Fax: | | | | | | | [phone] | +--------+--------+ + + + + Reason [...] Dx) | | | | Mailcode:OP14B | [place], [place] | | | | | Outpatient Clinic | [address] | | | | | Building [place], | [phone] | | | | | [place] [address] | | | | | | [phone] | | | +--------+---------+ + + + [...] note. CASIMIRO PAYTON MD NEUROSURGERY [address] [facility] [place] [id number] hPascual hanley - 12:00 PM PDT CC: [...] spots" and "tunnel vision." Last saw an photolith operator in [facility] 2 months ago. Reportedl y, this showed that her OS vision was worse - no reports available to me at this time. Was a lso admitted to the [facility] for CAPONE about a [...] Patient was also given a prescription for [place] for CAPONE until she establishs care with [...]
--- OUTSIDE RECORDS SUMMARY | ~2020-07-07 | XMS | Encounter Summary ---
Demographics + + + | Address | [address] | | | [place] [address] | + + + | Home Phone [...] Organization | [facility] | | | and [...] Team Providers + +------+ + | Care Braiding Operator Name | Role | Phone | + +------+ + PCP | Unavailable | + +------+ + Encounter Details +--------+ + + + + | Date | Type | Department | Care Team | Description | +--------+ + + + + | 10/18/ | Hospital | [facility] | | | | 1991 | Encounter | [facility] | | | | | | HEALTH [facility] [address] | | | | | | [place], | | | | | | [place] [address] | | | | | | [phone] | | | +--------+ + + + [...]
--- OUTSIDE RECORDS SUMMARY | ~2020-07-07 | XMS | Encounter Summary ---
Demographics + + + | Address | [address] | | | [place] [address] | + + + | Home Phone [...] | Author | [facility] [employer] [facility] | + + + | Organization | [facility] [employer] [facility] | [...] Team Providers + +------+ + | Care Services Engineer Name | Role | Phone | + +------+ + | Brenden Benavides MD | PCP | | + +------+ + Encounter Details +--------+ + + + + | Date | Type | Department | Care Team | Description | +--------+ + + + + | 02/22/ | Telephone | [facility] | Brad Currie MD | | | 2006 | | [place] | | | | | | Neuro-Ophthalmology | | | | | | [address] [facility] | | | | | | Mailcode: PATTI | | | | | | [place] [address] | | | | | | [phone] | | | +--------+ + + + [...]
--- OUTSIDE RECORDS SUMMARY | ~2020-07-07 | XMS | Encounter Summary ---
Demographics + + + | Address | [address] | | | [place] [address] | + + + | Home Phone | | + + + | Preferred Language | Unknown | + + + | Marital Status | | + + + | Faith Affiliation | NON | + + + | Race | or | + + + | Ethnic Group | Not or | + + + Author + + + | Author | [facility] | + + + | Organization | [facility] [employer] [facility] | + + + | Address | Unknown | + + + | Phone | Unavailable | + + + Support + + +---------+ + | Name | Relationship | Address | Phone | + + +---------+ + | Ruby Au | ECON | Unknown | | + + +---------+ + Care Team Providers + +------+ + | Care Explosive Ordnance Technician Name | Role | Phone | [...] | | | | | [address] [place] for | [address] | | | | | Health and Healing, | [place], [place] | | | | | Building | [address] | | | | | Floor [place], [place] | | | | | | [address] | | | | | | [phone] | | | +--------+ + + + [...]
--- OUTSIDE RECORDS SUMMARY | ~2020-07-07 | XMS | Encounter Summary ---
Demographics + + + | Address | [address] | | | [place] [address] | + + + | Home Phone [...] + + | Author | [facility] | + + + | Organization | [facility] [employer] [facility] | [...] Ave | | | | | Ave [place] for | [place], [place] | | | | | Health and Healing, | [address] | | | | | [facility] | [phone] | | | | | floor [place], [place] | | | | | | [address] | | | | | | [phone] | | | +--------+--------+ + + + [...]
--- OUTSIDE RECORDS SUMMARY | ~2020-07-07 | XMS | Encounter Summary ---
Demographics + + + | Address | [address] | | | [place] [address] | + + + | Home Phone [...] | Author | [facility] | + + + | Organization | [facility] [employer] [facility] | + [...] Team Providers + +------+ + | Care Hog Confinement System Manager Name | Role | Phone | [...] incision site) | | | | Ave [facility] | [place], [place] | | | | | Health and Healing, | [address] | | | | | [facility] | [phone] | | | | | floor [place], [place] | | | | | | [address] | | | | | | [phone] | | | +--------+ + + + [...]
--- OUTSIDE RECORDS SUMMARY | ~2020-07-07 | XMS | Encounter Summary ---
Demographics + + + | Address | [address] | | | [place] [address] | + + + | Home Phone [...] | Organization | [facility] | | [...] Providers + +------+ + | Care Shipping Specialist Name | Role | Phone | + +------+ + PCP | Unavailable | + +------+ + Encounter Details +--------+ + + + + | Date | Type | Department | Care Team | Description | +--------+ + + + + | 08/03/ | Hospital | [facility] | | | | 1990 | Encounter | MED CTR EMERGENCY | | | | | | CENTER [address] | | | | | | [place] | | | | | | [address] | | | | | | [phone] | | | +--------+ + + + [...]
--- OUTSIDE RECORDS SUMMARY | ~2020-07-07 | XMS | Encounter Summary ---
Demographics + + + | Address | [address] | | | [place] [address] | + + + | Home Phone [...] [facility] EPIS [facility] | + + + | Organization | [facility] youbeQ - Maps With [employer] [facility] | + + + | Address | Unknown | + + + | Phone | Unavailable | + + + Support + + +---------+ + | Name | Relationship | Address | Phone | + + +---------+ + | Ruby Au | ECON | Unknown | | + + +---------+ + Care Team Providers + +------+ + | Care Orchid Grower Name | Role | Phone | [...] Refill Request | | 2012 | | [place]/Ophthalmol | MD [place] | | | | | ramonjaneen at [facility] [address] | | | | | | [address] [facility] | | | | | | Health and Healing, | | | | | | [facility] | | | | | | Floor [place], [place] | | | | | | [address] | | | | | | [phone] | | | +--------+--------+ + + + [...]
--- OUTSIDE RECORDS SUMMARY | ~2020-07-07 | XMS | Encounter Summary ---
Demographics + + + | Address | [address] | | | [place] [address] | + + + | Home Phone [...] | Author | [facility] [employer] [facility] | + + + | Organization | [facility] Imon[employer] Interactive [employer] [facility] | [...] Team Providers + +------+ + | Care Editor Magazine Name | Role | Phone | + [...] Cerebri; | | 2006 | Visit | [place]/Ophthalmol | | Papilledema | | | | ogy at [facility] [address] | | Associated with | | | | [address] [facility] for | | Increased | | | | Health and Healing, | | Intracranial | | | | Building | | Pressure; Transient | | | | Floor [place], [place] | | Visual Loss | | | | [address] | | | | | | [phone] | | | +--------+---------+ + + + [...] might be different from the o brandyinal. COMPREHENSIVE OPHTHALMOLOGY PROGRESS NOTE 03/27/2007 specific problem noted by pt: transient visual loss HPI: 31 y.o. year old female from [place] : Patient presents with: Transient visual loss [...] seconds; these occur 2-3 x per w rampart. Hobbies: Tobacco use: reports that she has [...] patient to continue follow-[facility]. Follow up at [facility] prn new symptoms or complaints. WADE [...]
--- OUTSIDE RECORDS SUMMARY | ~2020-07-07 | XMS | Encounter Summary ---
Demographics + + + | Address | [address] | | | [place] [address] | + + + | Home Phone [...] + | Author | [facility] [email or web address] [facility] | + + + | Organization | [facility] [employer] [facility] | [...] Team Providers + +------+ + | Care Chute Tender Name | Role | Phone | [...] Ave | | | | | Ave [place] for | [place], [place] | | | | | Health and Healing, | [address] | | | | | [facility] | [phone] | | | | | floor [place], [place] | | | | | | [address] | | | | | | [phone] | | | +--------+--------+ + + + [...]
--- OUTSIDE RECORDS SUMMARY | ~2020-07-07 | XMS | Encounter Summary ---
Demographics + + + | Address | [address] | | | [place] [address] | + + + | Home Phone [...] + | Organization | [facility] [...] Providers + +------+ + | Care Grocery Worker Name | Role | Phone | + +------+ + PCP | Unavailable | + +------+ + Encounter Details +--------+ + + + + | Date | Type | Department | Care Team | Description | +--------+ + + + + | 09/30/ | Hospital | [facility] | | | | 1990 | Encounter | MED CTR EMERGENCY | | | | | | CENTER [address] | | | | | | [place] | | | | | | [address] | | | | | | [phone] | | | +--------+ + + + [...]
--- OUTSIDE RECORDS SUMMARY | ~2020-07-07 | XMS | Encounter Summary ---
Demographics + + + | Address | [address] | | | [place] [address] | + + + | Home Phone [...] + + | Author | [facility] | + + + | Organization | [facility] [facility] | + + + | Address | Unknown | + + + | Phone | Unavailable | + + + Support + + +---------+ + | Name | Relationship | Address | Phone | + + +---------+ + | Ruby Au | ECON | Unknown | | + + +---------+ + Care Team Providers + +------+ + | Care Campus Dean Name | Role | Phone | [...] | Headache | | 2005 | | [place]/Ophthalmol | MD Jordin | | | | | leon at [facility] [address] | | | | | | [address] [facility] | | | | | | Health and Healing, | | | | | | Building | | | | | | Floor [place], [place] | | | | | | [address] | | | | | | [phone] | | | +--------+ + + + [...]
--- OUTSIDE RECORDS SUMMARY | ~2020-07-07 | XMS | Encounter Summary ---
Demographics + + + | Address | [address] | | | [place] [address] | + + + | Home Phone [...] + + + | Author | [facility] | + + + | Organization | [facility] [employer] [facility] [...] Team Providers + +------+ + | Care Or Rn Name | Role | Phone | [...] Ave | | | | | [facility] | [place], [place] | | | | | Health and Healing, | [address] | | | | | [facility] | [phone] | | | | | floor [place], [place] | | | | | | [address] | | | | | | [phone] | | | +--------+ + + + [...]
--- OUTSIDE RECORDS SUMMARY | ~2020-07-07 | XMS | Encounter Summary ---
Demographics + + + | Address | [address] | | | [place] [address] | + + + | Home Phone [...] + + | Author | [facility] [employer] [facility] | + + + | Organization | [facility] Touch[employer] [facility] | + + + | Address | Unknown | + + + | Phone | Unavailable | + + + Support + + +---------+ + | Name | Relationship | Address | Phone | + + +---------+ + | Ruby Au | ECON | Unknown | | + + +---------+ + Care Team Providers + +------+ + | Care Applications Support Analyst Name | Role | Phone [...] Report | | 2006 | | Center [place] [address] [address] | | | | | Transcribed | [address] [facility] | | | | | | for Health and | | | | | | Healing, Building [address] | | | | | | [place], [place] | | | | | | [address] | | | | | | [phone] | | | +--------+ + + + [...] | 02/07/2007 12:00 AM PDT | | [id number] | | [id number] [place] Waters [id number] | | | | Date: 02/07/2007 | | | | Attending Surgeon: Hay Hughes M.D. | | | | Newspaper Illustrator(s): Pascual Bermudez M.D. | | | | [...] and medial orbital | | septum. The accounting manager assistant controller retracted the orbital fat bag with a [...] | | | | / | | [id number] / [id number] / [id number] / [id number] | | | | | | | | cc: | | | | | | Brad Currie M.D. | | [facility] | | | | | | Brenden Benavides M.D. | | [facility] | | [address] [facility] [address] | | [place] [address] | | | | | | Electronically signed by Hay Hughes 02-12-2007 05:13:05 PM | | | | | + + documented in this encounter Visit Diagnoses Not on filedocumented in this encounter"
--- OUTSIDE RECORDS SUMMARY | ~2020-07-07 | XMS | Encounter Summary ---
Demographics + + + | Address | [address] | | | [place] [address] | + + + | Home Phone [...] | Author | [facility] [employer] [facility] | + + + | Organization | [facility] UNI5 [employer] [facility] | [...] Team Providers + +------+ + | Care Wedding Photographer Name | Role | Phone | + [...] | | | Ave Center for | [place], [place] | | | | | Health and Healing, | [address] | | | | | [facility] | [phone] | | | | | floor [place], [place] | | | | | | [address] | | | | | | [phone] | | | +--------+---------+ + + + [...]
--- OUTSIDE RECORDS SUMMARY | ~2020-07-07 | XMS | Encounter Summary ---
Demographics + + + | Address | [address] | | | [place] [address] | + + + | Home Phone [...] + | Author | [facility] [employer] [facility] | + + + | Organization | [facility] [employer] [facility] | + [...] Team Providers + +------+ + | Care Tennis Instructor Name | Role | Phone | [...] | Postoperative | | 2008 | | [facility] [address] | [address] | Questions; Refill | | | | Ave Center for | [place], [place] | Encounters | | | | Health and Healing, | [address] | | | | | [facility] | [phone] | | | | | floor [place], [place] | | | | | | [address] | | | | | | [phone] | | | +--------+ + + + [...]
--- OUTSIDE RECORDS SUMMARY | ~2020-07-07 | XMS | Encounter Summary ---
Demographics + + + | Address | [address] | | | [place] [address] | + + + | Home Phone | | + + + | Preferred Language | Unknown | + + + | Marital Status | | + + + | Shinto Affiliation | NON | + + + | Race | or | + + + | Ethnic Group | Not or | + + + Author + + + | Author | [facility] [facility] | + + + | Organization | [facility] [employer]re[employer] [facility] [...] Team Providers + +------+ + | Care Tub Mender Name | Role | Phone | + +------+ + | Pedro Lius Sams MD | PCP | | + +------+ + Encounter Details +--------+ + + + + | Date | Type | Department | Care Team | Description | +--------+ + + + + | 03/10/ | Telephone | Neurosurgery at | Steph Reyes MD | | | 2012 | | [facility] [address] | | | | | | [facility] for | | | | | | Health and Healing, | | | | | | Building | | | | | | floor [place], [place] | | | | | | [address] | | | | | | [phone] | | | +--------+ + + + [...]
--- OUTSIDE RECORDS SUMMARY | ~2020-07-07 | XMS | Encounter Summary ---
Demographics + + + | Address | [address] | | | [place] [address] | + + + | Home Phone | | + + + | Preferred Language | Unknown | + + + | Marital Status | | + + + | Protestant Affiliation | NON | + + + | Race | or | + + + | Ethnic Group | Not or | + + + Author + + + | Author | [facility] [employer] [facility] | + + + | Organization | [facility] Woodpecker Education [employer] [facility] | + + + | Address | Unknown | + + + | Phone | Unavailable | + + + Support + + +---------+ + | Name | Relationship | Address | Phone | + + +---------+ + | Ruby Au | ECON | Unknown | | + + +---------+ + Care Team Providers + +------+ + | Care It Manager Name | Role | Phone | [...] | | | Ave Center for | [place], [place] | | | | | Health and Healing, | [address] | | | | | [facility] | [phone] | | | | | floor [place], [place] | | | | | | [address] | | | | | | [phone] | | | +--------+ + + + [...]
--- OUTSIDE RECORDS SUMMARY | ~2020-07-07 | XMS | Encounter Summary ---
Demographics + + + | Address | [address] | | | [place] [address] | + + + | Home Phone [...] | Author | [facility] [employer] [facility] | + + + | Organization | [facility] pSiFlow Technology Science [facility] [...] Providers + +------+ + | Care Pattern Drafter Name | Role | Phone | + [...] | Office | [facility] | Hay Hugehs MD 3[address] | Pseudotumor Cerebri; | | 2006 | Visit | [place] | [address] | Pain in or Around | | | | Oculoplastics at | [place], [place] | Eye | | | | [facility] [address] | [address] | | | | | [address] | [phone] | | | | | Eye [place] | | | | | | [facility] floor | | | | | | [place] [address] | | | | | | [phone] | | | +--------+---------+ + + + [...] to be seen here or by an shade cloth finisher in [facility], but she says she does not have transportation. I will call in Vicodin #20, pt to call i mmediately if there is any worsening. Pt states lucho lump in left bahai is gone. No pain. Pt. Had cough [...]
--- OUTSIDE RECORDS SUMMARY | ~2020-07-07 | XMS | Encounter Summary ---
Demographics + + + | Address | [address] | | | [place] [address] | + + + | Home Phone [...] + + | Author | [facility] [employer] [facility] | + + + | Organization | [facility] Utrip [employer] [facility] | + + + | Address | Unknown | + + + | Phone | Unavailable | + + + Support + + +---------+ + | Name | Relationship | Address | Phone | + + +---------+ + | Ruby Au | ECON | Unknown | | + + +---------+ + Care Team Providers + +------+ + | Care Tactical Debriefer Officer Name | Role | Phone | [...] | Ave [facility] | [place], [place] | | | | | Health and Healing, | [address] | | | | | [facility] | [phone] | | | | | floor [place], [place] | | | | | | [address] | | | | | | [phone] | | | +--------+ + + + [...]
--- OUTSIDE RECORDS SUMMARY | ~2020-07-07 | XMS | Encounter Summary ---
Demographics + + + | Address | [address] | | | [place] [address] | + + + | Home Phone [...] + + + | Author | [facility] [facility] | + + + | Organization | [facility] [email or web address] [facility] | + + [...] Providers + +------+ + | Care Bag Machine Operator Name | Role | Phone [...] Letter Encounter | | 2008 | | [facility] | [address] | | | | | and Healing [address] | [place], [place] | | | | | [address] [facility] | [address] | | | | | Health and Healing, | [phone] | | | | | [facility] | | | | | | Floor [place], [place] | | | | | | [address] | | | | | | [phone] | | | +--------+ + + + [...]
--- OUTSIDE RECORDS SUMMARY | ~2020-07-07 | XMS | Encounter Summary ---
Demographics + + + | Address | [address] | | | [place] [address] | + + + | Home Phone [...] + | Author | [facility] [employer] [facility] | + + + | Organization | [facility] easy2map [facility] | + [...] Providers + +------+ + | Care Senior Software Manager Name | Role | Phone | + +------+ + | Brenden Benavides MD | PCP | | + +------+ + Encounter Details +--------+ + + + + | Date | Type | Department | Care Team | Description | +--------+ + + + + | 02/23/ | Telephone | [facility] | Brad Currie MD | | | 2006 | | [place] | | | | | | Neuro-Ophthalmology | | | | | | [address] [facility] | | | | | | Mailcode: PATTI | | | | | | [place] [address] | | | | | | [phone] | | | +--------+ + + + [...]
--- OUTSIDE RECORDS SUMMARY | ~2020-07-07 | XMS | Encounter Summary ---
Demographics + + + | Address | [address] | | | [place] [address] | + + + | Home Phone [...] | [facility] SEEC [employer] [facility] | + + + | Organization | [facility] BioElectronics [facility] | + [...] Refill Request | | 2007 | | [facility] | FLORA JOSE | | | | | and Healing [address] | Neurosurgery [address] | | | | | [address] Center for | [address] | | | | | Health and Healing, | [place], [place] | | | | | Building | [address] | | | | | Floor [place], [place] | | | | | | [address] | | | | | | [phone] | | | +--------+--------+ + + + [...]
--- OUTSIDE RECORDS SUMMARY | ~2020-07-07 | XMS | Encounter Summary ---
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 Visual Acuity: [facility] RE 20/20-1 LE 20/25-2 NI Pupil: [...]
--- OUTSIDE RECORDS SUMMARY | ~2020-07-07 | XMS | Encounter Summary ---
Demographics + + + | Address | [address] | | | [place] [address] | + + + | Home Phone [...] + | Author | [facility] [email or web address] [facility] | + + + | Organization | [facility] War[employer] Science [facility] [...] Team Providers + +------+ + | Care Yarding Engineer Name | Role | Phone | [...] Erroneous Encounter | | 2007 | | [facility] | [facility] | - Disregard | | | | and Healing [address] | Neurosurgery [address] | | | | | [address] [facility] for | [address] | | | | | Health and Healing, | [place], [place] | | | | | Building | [address] | | | | | Floor [place], [place] | | | | | | [address] | | | | | | [phone] | | | +--------+ + + + [...]
--- OUTSIDE RECORDS SUMMARY | ~2020-07-07 | XMS | Encounter Summary ---
Demographics + + + | Address | [address] | | | [place] [address] | + + + | Home Phone [...] + | Author | [facility] | + + + | Organization | [facility] Open mHealth Science [facility] | [...] Team Providers + +------+ + | Care German Teacher Name | Role | Phone | + +------+ + | Pedro Luis Sams MD | PCP | | + +------+ + Encounter Details +--------+ + + + + | Date | Type | Department | Care Team | Description | +--------+ + + + + | 08/31/ | Telephone | [facility] | Leticia Pitts MD | | | 2010 | | [place]/Ophthalmol | | | | | | ogy at [facility] [address] | | | | | | [address] [facility] for | | | | | | Health and Healing, | | | | | | Building | | | | | | Floor [place], [place] | | | | | | [address] | | | | | | [phone] | | | +--------+ + + + [...]
--- OUTSIDE RECORDS SUMMARY | ~2020-07-07 | XMS | Encounter Summary ---
Demographics + + + | Address | [address] | | | [place] [address] | + + + | Home Phone [...] [facility] [employer] | + + + | Organization | Counts Include [facility] Dindong Science [facility] | + + [...] + +------+ + | Care National Sales Executive Name | Role | Phone | + [...] Ave | | | | | [address] for | [place], [place] | | | | | Health and Healing, | [address] | | | | | [facility] , 8th | [phone] | | | | | floor [place], [place] | | | | | | [address] | | | | | | [phone] | | | +--------+ + + + [...]
--- OUTSIDE RECORDS SUMMARY | ~2020-07-07 | XMS | Encounter Summary ---
Demographics + + + | Address | [address] | | | [place] [address] | + + + | Home Phone | | + + + | Preferred Language | Unknown | + + + | Marital Status | | + + + | Adventist Affiliation | NON | + + + | Race | or | + + + | Ethnic Group | Not or | + + + Author + + + | Author | [facility] [facility] | + + + | Organization | [facility] Markkit Science [facility] [...] Providers + +------+ + | Care Respiratory Physician Name | Role | Phone | [...] Flores | | | | | | [facility] | | | | | | [place], [place] | | | | | | [address] | | | | | | [phone] | | | +--------+ + + + [...]
--- OUTSIDE RECORDS SUMMARY | ~2020-07-07 | XMS | Clinical Summary ---
Demographics + + + | Address | [address] | | | [place] [address] | + + + | Home Phone [...] Comments REBECA is fully live on both [facility] and [facility] InPatient.[facility] Allergies + + + + [...] +--------+ | MEDICAID [place] | OHP | xxxxxxxx | | [phone] | [address] | Medica | | | PLUS | | [phone] | [phone] | id | | | OPEN | | esent | | [place], [place] | | | | CARD | | | | [address] | | + +--------+ +--------+ + +--------+ [...] al/Fam | | 1975 | [phone] | [place] [address] | | | rene | | | 9 (Home) | | + +--------+ +--------+ + + Advance Directives + + + + + | Type | Date Recorded | Patient | Explanation | | | | Hydroelectric Station Chief | | + + + + + | Advance | | | | | Directives and | | | | | Living Will | | | | + + + + + | Power of | | | | | Base Remover | | | | + + + [...]
--- OUTSIDE RECORDS SUMMARY | ~2020-07-07 | XMS | Encounter Summary ---
Demographics + + + | Address | [address] | | | [place] [address] | + + + | Home Phone [...] + + | Author | [facility] | + + + | Organization | [facility] | + [...] Team Providers + +------+ + | Care Master Dyer Name | Role | Phone | [...] | | Haider Mailcode: [id number] | [place], [place] | | | | | [place], [place] | [address] | | | | | [address] | [phone] | | | | | [phone] | | | +--------+ + + + [...]
--- OUTSIDE RECORDS SUMMARY | ~2020-07-07 | XMS | Encounter Summary ---
Demographics + + + | Address | [address] | | | [place] [address] | + + + | Home Phone | | + + + | Preferred Language | Unknown | + + + | Marital Status | | + + + | Samaritan Affiliation | Unknown | + + + | Race | Unknown | + + + | Ethnic Group | Unknown | + + + Author + + + | Author | [facility] | | | and Williamana | + + + | Organization | [facility] | | | and [...] Providers + +------+ + | Care Tool Planner Name | Role | Phone | + +------+ + PCP | Unavailable | + +------+ + Encounter Details +--------+ + + + + | Date | Type | Department | Care Team | Description | +--------+ + + + + | 11/04/ | Hospital | [facility] | Unknown, | | | 2004 | Encounter | MED CTR XRAY [address] | MD Sudhakar . | | | | | [place] [place] | | | | | | [place] [address] | (Fax) | | | | | [phone] | | | +--------+ + + + [...]
--- OUTSIDE RECORDS SUMMARY | ~2020-07-07 | XMS | Encounter Summary ---
Demographics + + + | Address | [address] | | | [place] [address] | + + + | Home Phone [...] + | Author | [facility] zweitgeist [facility] | + + + | Organization | [facility] Gek[employer] Science [facility] | [...] Providers + +------+ + | Care Insurance Manager Name | Role | Phone | [...] | Visit | Medicine Clinic at | TOOLROOM CLERK [address] [facility] | Pre-Operative | | | | [facility] 4th Floor [address] | Examination (Primary | | | | [address] | [place], [place] | Dx); Pseudotumor | | | | Mailcode: CH4S | [id number] | Cerebri; Encounter | | | | [facility] | [phone] | for Long-Term | | | | and Healing, | | (Current) Use of | | | | Building 1,4th Floor | | Anticoagulants | | | | [place], [place] | | | | | | [address] | | | | | | [phone] | | | +--------+---------+ + + + [...] Scanned [facility] [address] [place] [address] And [facility],[address] [place] [address] documented in this encou nter Plan [...] | + + + + + | [facility] DEPARTMENT OF | [address] [facility] | [place] [address] | | | PATHOLOGY | [address] | | | + + + + + | [facility] DEPARTMENT OF | [address] | [place] [address] | | | PATHOLOGY | [address] [...] | + + + + + | [facility] | [address] | [place] [address] | | | PATHOLOGY | [address] | | | + + + + + | [facility] | [address] | [place] [address] | | | PATHOLOGY | [address] [...] | + + + + + | [facility] | [address] | [place] [address] | | | PATHOLOGY | [address] | | | + + + + + | [facility] | [address] | [place] [address] | | | PATHOLOGY | [address] [...] | + + + + + | [facility] | [address] | [place] [address] | | | PATHOLOGY | [address] | | | + + + + + | [facility] | [address] | [place] [address] | | | PATHOLOGY | [address] [...] Performed At | + + + | [id number] Estimated GFR > 60 mL/min/1.73 sq m if non- | [facility] | | [place] [id number] Estimated GFR > 60 mL/min/1.73 sq m if | DEPARTMENT OF | | [place] GFR is estimated using the MDRD equation [...] | + + + + + | [facility] DEPARTMENT OF | [address] | [place] [address] | | | PATHOLOGY | [address] | | | + + + + + | [facility] DEPARTMENT OF | [address] | [place] [address] | | | PATHOLOGY | [address] [...] | + + + + + | [facility] DEPARTMENT OF | [address] | [place] [address] | | | PATHOLOGY | [address] | | | + + + + + | [facility] OF | [address] | [place] [address] | | | PATHOLOGY | [address] | | | + + + + + documented in this encounter Visit Diagnoses + + | Diagnosis | + + | Other specified pre-operative examination - Primary | + + | Pseudotumor cerebri Benign intracranial hypertension | + + | salvage determiner (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
--- OUTSIDE RECORDS SUMMARY | ~2020-07-07 | XMS | Encounter Summary ---
Demographics + + + | Address | [address] | | | [place] [address] | + + + | Home Phone [...] Author + + + | Author | [facility] [email or web address] [facility] | + + + | Organization | [facility] Deem Science [facility] | [...] | | | | | [address] [place] for | [address] | | | | | Health and Healing, | [place], [place] | | | | | Building | [address] | | | | | Floor [place], [place] | | | | | | [address] | | | | | | [phone] | | | +--------+ + + + [...]
--- OUTSIDE RECORDS SUMMARY | ~2020-07-07 | XMS | Encounter Summary ---
Demographics + + + | Address | [address] | | | [place] [address] | + + + | Home Phone [...] Author | [facility] [employer] [facility] | + + + | Organization | [facility] Celsense [facility] | + + [...] Providers + +------+ + | Care Gas Welder Apprentice Name | Role | Phone | [...] | [address] | | | | [facility] | [place], [place] | | | | | Health and Healing, | [address] | | | | | Building | [phone] | | | | | floor [place], [place] | | | | | | [address] | | | | | | [phone] | | | +--------+ + + + [...]
--- OUTSIDE RECORDS SUMMARY | ~2020-07-07 | XMS | Encounter Summary ---
Demographics + + + | Address | [address] | | | [place] [address] | + + + | Home Phone [...] | On License Of [facility] | + + + | Organization | On License Of [facility] [employer] [facility] | + + [...] Providers + +------+ + | Care Ad Clerk Name | Role | Phone | [...] Cerebri | | 2006 | Visit | [place] | | (Primary Dx) | | | | Neuro-Ophthalmology | | | | | | [address] [facility] | | | | | | Mailcode: PATTI | | | | | | [place] [address] | | | | | | [phone] | | | +--------+---------+ + + + [...] Referred by: CASIMIRO PAYTON MD [address] [place] [address] Symptoms: Patient feels things are better. Vision [...] Brad Currie MD Neuro-Ophthalmology and Cerebrovascular Disease Fiberglass Insulation Installer of Ophthalmology, Neurology, and Neurosurgery documented in this encounter Plan of Treatment + + +--------+ + + | Name | Type | Priori | Associated Diagnoses | Order Schedule | | | | ty | | | + + +--------+ + + | ND VISUAL FIELD | Procedures | Routin | Pseudotumor | Ordered: 01/30/2007 | | EXAM,EXTENDED | | e | Cerebri | | + + +--------+ + + documented as of this encounter Visit Diagnoses + + | Diagnosis | + + | Pseudotumor cerebri - Primary Benign intracranial hypertension | + + documented in this encounter"
--- OUTSIDE RECORDS SUMMARY | ~2020-07-07 | XMS | Encounter Summary ---
Demographics + + + | Address | [address] | | | [place] [address] | + + + | Home Phone [...] + | Author | [facility] | + + + | Organization | [facility] [employer]ation[employer]ut[employer] [facility] | + + + | Address | Unknown | + + + | Phone | Unavailable | + + + Support + + +---------+ + | Name | Relationship | Address | Phone | + + +---------+ + | Ruby Au | ECON | Unknown | | + + +---------+ + Care Team Providers + +------+ + | Care Relay Associate Name | Role | Phone | [...] about CAPONE) | | | | Ave Center for | [place], [place] | | | | | Health and Healing, | [address] | | | | | [facility] | [phone] | | | | | floor [place], [place] | | | | | | [address] | | | | | | [phone] | | | +--------+ + + + [...]
--- OUTSIDE RECORDS SUMMARY | ~2020-07-07 | XMS | Encounter Summary ---
Demographics + + + | Address | [address] | | | [place] [address] | + + + | Home Phone [...] | Author | [facility] | + + + | Organization | [facility] Levant [employer] Science [facility] [...] Providers + +------+ + | Care Licensed Master Social Worker Name | Role | Phone [...] Letter Encounter | | 2008 | | [facility] | [address] | | | | | and Healing [address] | [place], [place] | | | | | [address] [facility] | [address] | | | | | Health and Healing, | [phone] | | | | | [facility] | | | | | | Floor [place], [place] | | | | | | [address] | | | | | | [phone] | | | +--------+ + + + [...]
--- OUTSIDE RECORDS SUMMARY | ~2020-07-07 | XMS | Encounter Summary ---
Demographics + + + | Address | [address] | | | [place] [address] | + + + | Home Phone [...] + + | Author | [facility] | + + + | Organization | [facility] agámi Systems [facility] | [...] Providers + +------+ + | Care Band Singer Name | Role | Phone | + [...] | | | | | Physician's | [place], [place] | | | | | [facility] | [address] | | | | | [place], [place] | [phone] | | | | | [address] | | | | | | [phone] | | | +--------+ + + + [...]
--- OUTSIDE RECORDS SUMMARY | ~2020-07-07 | XMS | Encounter Summary ---
Demographics + + + | Address | [address] | | | [place] [address] | + + + | Home Phone [...] + | Author | [facility] | + + + | Organization | [facility] MedioTrabajo Science [facility] | + [...] Providers + +------+ + | Care Billing Machine Operator Name | Role | Phone [...] | | | | | [address] [place] [place] for | [address] | | | | | Health and Healing, | [place], [place] | | | | | | [address] | | | | | Floor [place], [place] | | | | | | [address] | | | | | | [phone] | | | +--------+ + + + [...]
--- OUTSIDE RECORDS SUMMARY | ~2020-07-07 | XMS | Encounter Summary ---
Demographics + + + | Address | [address] | | | [place] [address] | + + + | Home Phone [...] + + + | Author | [facility] | + + + | Organization | [facility] [employer] [facility] | + [...] Team Providers + +------+ + | Care Hat Block Bench Hand Name | Role | Phone | [...] | | | | | [address] [place] for | [address] | | | | | Health and Healing, | [place], [place] | | | | | | [address] | | | | | Floor [place], [place] | | | | | | [address] | | | | | | [phone] | | | +--------+ + + + [...]
--- OUTSIDE RECORDS SUMMARY | ~2020-07-07 | XMS | Encounter Summary ---
Demographics + + + | Address | [address] | | | [place] [address] | + + + | Home Phone [...] | [facility] [employer] [facility] | + + + | Organization | [facility] Enforcer eCoaching Science [facility] | [...] Team Providers + +------+ + | Care Delivery And Installation Subcontractor Name | Role | Phone | + [...] | | | | Ave [facility] | [place], [place] | | | | | Health and Healing, | [address] | | | | | Building 1, 8th | [phone] | | | | | floor [place], [place] | | | | | | [address] | | | | | | [phone] | | | +--------+---------+ + + + [...]
--- OUTSIDE RECORDS SUMMARY | ~2020-07-07 | XMS | Encounter Summary ---
Demographics + + + | Address | [address] | | | [place] [address] | + + + | Home Phone [...] | Organization | [facility] | | | [...] Team Providers + +------+ + | Care Air Valve Mechanic Name | Role | Phone | + +------+ + PCP | Unavailable | + +------+ + Encounter Details +--------+ + + + + | Date | Type | Department | Care Team | Description | +--------+ + + + + | 01/15/ | Hospital | [facility] | Marine Leonard | | | 2011 | Encounter | MED CTR EMERGENCY | DO Gaurang Drake | | | | | [address] | [place], [place] | | | | | [place], [place] | [address] | | | | | [address] | | | | | | [phone] | | | +--------+ + + + [...] with chief complaint of a headache. [facility] that she was recently in [place] and saw her neurologist. She said she had some tests done in September and October, and said that her BATH MIXER shunt was no longer in place. She [...] s tates that she was seen at [facility] [place] today for her headache, but she states [...] states that she was seen twice in [place] and was given some sort of medicine, but s he does know the name of it, but it did not help her headache and so she came here for to s [place] further treatment. Apparently when she was at [facility] [place], she had received some morphine on one [...] to pseudotumor cerebri a nd having a BATH MIXER shunt placed. Again, she states that the [...] BY: Vidal Leonard, Emergency Medicine JOB #: [id number] EXT JOB #:[id number] <Electronicall y Signed by Jt Leonard DO> 01/21/12 1454 documented in this encounter Plan of Treatment Not on filedocumented as of this encounter Visit Diagnoses Not on filedocumented in this encounter"
--- OUTSIDE RECORDS SUMMARY | ~2020-07-07 | XMS | Encounter Summary ---
Demographics + + + | Address | [address] | | | [place] [address] | + + + | Home Phone [...] Organization | [facility] [...] Providers + +------+ + | Care Environmental Protection Specialist Name | Role | Phone | + +------+ + PCP | Unavailable | + +------+ + Encounter Details +--------+ + + + + | Date | Type | Department | Care Team | Description | +--------+ + + + + | 04/24/ | Hospital | [facility] | | | | 2004 | Encounter | MED CTR EMERGENCY | | | | | | CENTER [address] | | | | | | [place] | | | | | | [address] | | | | | | [phone] | | | +--------+ + + + [...]
--- OUTSIDE RECORDS SUMMARY | ~2020-07-07 | XMS | Encounter Summary ---
Demographics + + + | Address | [address] | | | [place] [address] | + + + | Home Phone [...] + | Author | [facility] | + + + | Organization | [facility] Specialized Pharmaceuticalss Science [facility] [...] Team Providers + +------+ + | Care Finished Cloth Examiner Name | Role | Phone | + +------+ + | Brenden Benavides MD | PCP | | + +------+ + Encounter Details +--------+ + + + + | Date | Type | Department | Care Team | Description | +--------+ + + + + | 02/22/ | Telephone | [facility] | Brad Currie MD | | | 2006 | | [place] | | | | | | Neuro-Ophthalmology | | | | | | [address] [facility] | | | | | | Mailcode: PATTI | | | | | | [place] [address] | | | | | | [phone] | | | +--------+ + + + [...]
--- OUTSIDE RECORDS SUMMARY | ~2020-07-07 | XMS | Encounter Summary ---
Demographics + + + | Address | [address] | | | [place] [address] | + + + | Home Phone [...] | [facility] | [...] Team Providers + +------+ + | Care Osteopathic Resident Name | Role | Phone | + +------+ + PCP | Unavailable | + +------+ + Encounter Details +--------+ + + + + | Date | Type | Department | Care Team | Description | +--------+ + + + + | 10/25/ | Hospital | [facility] | | | | 1991 | Encounter | MED CTR EMERGENCY | | | | | | CENTER [address] | | | | | | [place] | | | | | | [address] | | | | | | [phone] | | | +--------+ + + + [...]
--- OUTSIDE RECORDS SUMMARY | ~2020-07-07 | XMS | Encounter Summary ---
Demographics + + + | Address | [address] | | | [place] [address] | + + + | Home Phone [...] + + | Author | [facility] [place] [facility]OL[employer] [facility] | + + + | Organization | [facility] [place] [employer] [facility] [...] Providers + +------+ + | Care Clinical Project Manager Name | Role | Phone [...] | | [place] Mailcode:OP14B | [place], | | | | | [facility] | [place] [address] | | | | | [place], [place] | | | | | | [address] | | | | | | [phone] | | | +--------+ + + + [...]
--- OUTSIDE RECORDS SUMMARY | ~2020-07-07 | XMS | Encounter Summary ---
Demographics + + + | Address | [address] | | | [place] [address] | + + + | Home Phone [...] + | Author | [facility] [address] [facility] | + + + | Organization | [facility] HighFive Mobile Science [facility] [...] Providers + +------+ + | Care Oncology Coordinator Name | Role | Phone | [...] Cerebri; | | 2005 | Visit | [place] | | Common Migraine | | | | Neuro-Ophthalmology | | without Mention of | | | | [address] | | Intractable Migraine | | | | Mailcode: CEI | | | | | | [place] [address] | | | | | | [phone] | | | +--------+---------+ + + + [...] 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
--- OUTSIDE RECORDS SUMMARY | ~2020-07-07 | XMS | Encounter Summary ---
Demographics + + + | Address | [address] | | | [place] [address] | + + + | Home Phone [...] + + | Author | [facility] | + + + | Organization | [facility] [employer] [facility] | + + [...] Providers + +------+ + | Care Electrical Logging Operator Name | Role | Phone | [...] | | [place] Mailcode:OP14B | Sandra [place], | | | | | [place] | [place] [address] | | | | | [place], [place] | | | | | | [address] | | | | | | [phone] | | | +--------+ + + + [...]
--- OUTSIDE RECORDS SUMMARY | ~2020-07-07 | XMS | Encounter Summary ---
Demographics + + + | Address | [address] | | | [place] [address] | + + + | Home Phone | | + + + | Preferred Language | Unknown | + + + | Marital Status | | + + + | Pentecostalism Affiliation | Unknown | + + + | Race | Unknown | + + + | Ethnic Group | Unknown | + + + Author + + + | Author | [facility] | | | and [place] | + + + | Organization | [facility] | [...] Providers + +------+ + | Care Manager Provider Relations Name | Role | Phone | + +------+ + PCP | Unavailable | + +------+ + Encounter Details +--------+ + + + + | Date | Type | Department | Care Team | Description | +--------+ + + + + | 06/19/ | Hospital | [facility] | | | | 1991 | Encounter | [facility] | | | | | | HEALTH [address] | | | | | | [place], | | | | | | [place] [address] | | | | | | [phone] | | | +--------+ + + + [...]
--- OUTSIDE RECORDS SUMMARY | ~2020-07-07 | XMS | Encounter Summary ---
Demographics + + + | Address | [address] | | | [place] [address] | + + + | Home Phone [...] [facility] | + + + | Organization | [facility] [employer] [facility] | [...] Team Providers + +------+ + | Care Well Drill Operator Rotary Drill Name | Role | Phone | + [...] | +--------+ + + + + | 06/ | Telephone | [facility] | Eulalio Arevalo, | Care Coordination | | 2018 | | [place] | MD [address] | | | | | Neuro-Ophthalmology | [place], [place] | | | | | at [facility] [address] | [address] | | | | | [facility] | [phone] | | | | | [place] and [place], | | | | | | | | | | | | Floor [place], [place] | | | | | | [address] | | | | | | [phone] | | | +--------+ + + + [...]
--- OUTSIDE RECORDS SUMMARY | ~2020-07-07 | XMS | Encounter Summary ---
Demographics + + + | Address | [address] | | | [place] [address] | + + + | Home Phone [...] + | Author | [facility] | + + + | Organization | [facility] [employer] [facility] | + [...] Providers + +------+ + | Care Registered Midwife Name | Role | Phone | + +------+ + | Brenden Benavides MD | PCP | | + +------+ + Encounter Details +--------+ + + + + | Date | Type | Department | Care Team | Description | +--------+ + + + + | 02/23/ | Telephone | [facility] | Brad Currie MD | | | 2006 | | [place] | | | | | | Neuro-Ophthalmology | | | | | | [address] [facility] | | | | | | Mailcode: PATTI | | | | | | [place] [address] | | | | | | [phone] | | | +--------+ + + + [...]
--- OUTSIDE RECORDS SUMMARY | ~2020-07-07 | XMS | Encounter Summary ---
Demographics + + + | Address | [address] | | | [place] [address] | + + + | Home Phone [...] [facility] [employer] [facility] | + + + | Organization | [facility] [employer] [facility] | + + [...] Providers + +------+ + | Care Retail Support Associate Name | Role | Phone | [...] ) | | | | Physician's | [place], [place] | | | | | Pavilion, 2nd floor | [address] | | | | | [place], [place] | [phone] | | | | | [address] | | | | | | [phone] | | | +--------+ + + + [...]
--- OUTSIDE RECORDS SUMMARY | ~2020-07-07 | XMS | Encounter Summary ---
Demographics + + + | Address | [address] | | | [place] [address] | + + + | Home Phone [...] + | Author | [facility] [employer] [facility] | + + + | Organization | [facility] [employer] [facility] | + + [...] Providers + +------+ + | Care Film Technician Name | Role | Phone | [...] | | | | | | | [place] | | | | | | | [id number] | | | | | | | [facility] | | | | | | | [place], | | | | | | | [place] [address] | | | | | | | Phone: | | | | | | | [phone] | +--------+--------+ + + + + Encounter Details +--------+ + + + + | Date | Type | Department | Care Team | Description | +--------+ + + + + | 08/01/ | Hospital | [facility] [address] | Sam Pedroza MD | | | 2007 - | Encounter | [place] | [address] | | | | | [id number] [facility] | [place], [place] | | | 08/02/ | | HOSPITAL [place], | [address] | | | 2007 | | [place] [address] | [phone] | | | | | [phone] | | | +--------+ + + + [...] Other, Faculty - 08/02/2008 12:16 PM PDT Skyla, Faculty - 08/02/2008 12:16 PM PDT Carley [...] in 2 weeks, please call for appointment: [phone] Condition On Discharge: Vital Signs at discharge as appropriate: BP: 130/76 mmHg (08/02/08 7:25 AM) Pulse: 88 (08/02/08 7:25 AM) Resp: 18 (08/02/08 7:25 AM) Discharge Patient To: Home Discharging Provider: CARLEY ARAUJO MD Discharging Attending: Sam Pedroza documented in this encounter Discharge Instructions Instructions nAni Oliva - 08/02/2008 INPATIENT PROVIDER DISCHARGE AND [...] in 2 weeks, please call for appointment: [phone] Condition On Discharge: Vital Signs at discharge [...] time. PT to sign off. essenia Nowak - 08/02/2008 9:00 AM PDTOT contact note: Spoke with pt who reports she has been up ambulating independently, has no ADL needs and [facility] Dr. Pedroza agreed that she would not need therapies. Spoke with RN who endorses that pt has been up independently last pm and this am. OT to sign off at this time. Yessenia Nowak, OTR/ L [address] Tomasz Caldera Md - 02/2008 11:08 AM [...] Performed At | + + + | [id number] | | | [id number] | | | [place] [id number] Date: | | | 08/01/2008 Attending Surgeon: | | | Sam Pedroza M.D. Quality Project Manager(s): | | | Tomasz Rice M.D. | [...] | tonsils and then gently incised. A [place] 4 was then easily fed | | [...] | | | Pooja Pedroza M.D. / [id number] / | | | [id number] / [id number] / | | + + + + + | Procedure Note | + + | Krystal Rushing, Tomasz - 08/01/2008 12:00 AM PDT [id number] | | [id number] [place] | | [id number] Date: 08/01/2008 Attending Surgeon: Sam | | Pooja Pedroza Quality Project Manager(s): Tomasz Rice M.D. | | Palomo Jansen [...] tonsils and | | thengently incised. A [place] 4 was then easily fed through it, [...] Sam Pedroza M.D. KG / | | [id number] / [id number] / [id number] / T: 08/02/2008 | |dripping from the [...] tonsils and then | |gently incised. A [place] 4 was then easily fed through it, [...] | | | |KG / HS | |[id number] / [id number] / [id number] / | | | | | | | | | | | | | | | | | | | | | + + TEACHING PHYSICIAN (08/01/2008 12:00 AM PDT) + + + | Narrative | Performed At | + + + | [id number] | | | [id number] | | | [place] [id number] | | | Date: 08/01/2008 Attending Surgeon: | | | Sam Pedroza M.D. Quality Project Manager(s): | | | Tomasz Rice M.D. | [...] | | | Pooja Pedroza / LANETTE [id number] / [id number] / [id number] / [id number] D: | | | 08/01/2008 | | + + + + + | Procedure Note | + + | Sam Pedroza MD - 08/01/2008 12:00 AM PDT [id number] | | [id number] [place] | | [id number] Date: 08/01/2008ttending Surgeon: Sam | | Pooja Pedroza Quality Project Manager(s): Tomasz Rice M.D. | | Palomo Jansen M.D. Preoperative Diagnosis(es):Pseudotumor cerebri. | | Postoperative Diagnosis(es):Pseudotumor cerebri. Procedures Performed:Placement of | | lumboperitoneal shunt. Anesthesia:General endotracheal anesthesia. Complications:None. | | I, Dr. Sam Pderoza, was in the OR during the critical portions of thisprocedure which | | included the placement of the lumbar drain into thesubarachnoid space and then exposure | | of the peritoneal site and placementof the lumboperitoneal shunt into the peritoneal | | space without anycomplication. A full operative report will be dictated by | | Bisi. Sam Pedroza M.D. AD / [id number] / [id number] / [id number] / [id number]: | | 08/01/2008T: 08/01/2008 | | | [...] | | | |AD / HS | |[id number] / [id number] / 16051 / 70549 | | | | | | | [...]
--- OUTSIDE RECORDS SUMMARY | ~2020-07-07 | XMS | Encounter Summary ---
Demographics + + + | Address | [address] | | | [place] [address] | + + + | Home Phone [...] | [facility] | | | [...] Team Providers + +------+ + | Care Emergency Room Technician Name | Role | Phone | + +------+ + PCP | Unavailable | + +------+ + Encounter Details +--------+ + + + + | Date | Type | Department | Care Team | Description | +--------+ + + + + | 10/29/ | Hospital | [facility] | | | | 1991 | Encounter | MED CTR EM[facility] | | | | | | CENTER [address] | | | | | | [place] | | | | | | [address] | | | | | | [phone] | | | +--------+ + + + [...]
--- OUTSIDE RECORDS SUMMARY | ~2020-07-07 | XMS | Encounter Summary ---
Demographics + + + | Address | [address] | | | [place] [address] | + + + | Home Phone [...] + | Author | [facility] [employer] [facility] | + + + | Organization | [facility] [employer] [facility] [...] Team Providers + +------+ + | Care Craft Worker Name | Role | Phone | + +------+ + | Yeison Simms MD | PCP | Unavailable | + +------+ + Reason for Visit + + + | Reason | Comments | + + + | Refill Request | refill on [place] | + + + Encounter Details +--------+--------+ + + + | Date | Type | Department | Care Team | Description | +--------+--------+ + + + | 08/27/ | Refill | Neurosurgery at | Sam Pedroza MD | Refill Request | | 2007 | | [facility] [address] | [address] | (refill on [place]) | | | | Ave [place] for | [place], [place] | | | | | Health and Healing, | [address] | | | | | [facility] | [phone] | | | | | floor [place], [place] | | | | | | [address] | | | | | | [phone] | | | +--------+--------+ + + + [...]
--- OUTSIDE RECORDS SUMMARY | ~2020-07-07 | XMS | Encounter Summary ---
Demographics + + + | Address | [address] | | | [place] [address] | + + + | Home Phone [...] + + | Author | [facility] [employer] [facility] | + + + | Organization | [facility] [employer] [facility] | + [...] Team Providers + +------+ + | Care Envelope Patternmaker Name | Role | Phone | + [...] | | | | | | | [facility] | | | | | | | Hospital | | | | | | | [place], [place] | | | | | | | [address] | | | | | | | Phone: | | | | | | | [phone] | | | | | | | Fax: | | | | | | | [phone] | +--------+--------+ + + + + Encounter Details +--------+ + + + + | Date | Type | Department | Care Team | Description | +--------+ + + + + | 05/07/ | Hospital | [facility] [address] | [place], | | | 2007 | Encounter | [address] | MD Olm[place] | | | | | [address] [facility] | MD Holden,PhD | | | | | [place] | | | | | | [address] | | | | | | [phone] | | | +--------+ + + + [...] Dennis, | | | | | | M.D.Gastroenterology Manager surgeon: . | | | | | [...] | | | | | | vein with6-[employer] | | | | | | [...] artery. | | | | | | L7Hobphg Berenstein | | | | | | [...] | | | | | with a 6-[employer]in[employer]adian Envoy | | | | | | [...] + +---------+ + + | [facility] DEPARTMENT OF | | | [...]
--- OUTSIDE RECORDS SUMMARY | ~2020-07-07 | XMS | Encounter Summary ---
Demographics + + + | Address | [address] | | | [place] [address] | + + + | Home Phone | | + + + | Preferred Language | Unknown | + + + | Marital Status | | + + + | Amish Affiliation | NON | + + + | Race | or | + + + | Ethnic Group | Not or | + + + Author + + + | Author | [facility] | + + + | Organization | [facility] [employer] [facility] | [...] Team Providers + +------+ + | Care Dehydration Plant Operator Name | Role | Phone [...] ) | | | | Physician's | [place], [place] | | | | | Pavilion, 2nd floor | [address] | | | | | [place], [place] | [phone] | | | | | [address] | | | | | | [phone] | | | +--------+ + + + [...]
--- OUTSIDE RECORDS SUMMARY | ~2020-07-07 | XMS | Encounter Summary ---
Demographics + + + | Address | [address] | | | [place] [address] | + + + | Home Phone | | + + + | Preferred Language | Unknown | + + + | Marital Status | | + + + | Jainism Affiliation | Unknown | + + + | Race | Unknown | + + + | Ethnic Group | Unknown | + + + Author + + + | Author | [facility] | | | and [place]ana | + + + | Organization | [facility] | | | and [...] Providers + +------+ + | Care Dish Technician Name | Role | Phone | + +------+ + PCP | Unavailable | + +------+ + Encounter Details +--------+ + + + + | Date | Type | Department | Care Team | Description | +--------+ + + + + | 09/27/ | Hospital | [facility] | | | | 1991 | Encounter | [facility] | | | | | | HEALTH [address] | | | | | | [place], | | | | | | [place] [address] | | | | | | [phone] | | | +--------+ + + + [...]
--- OUTSIDE RECORDS SUMMARY | ~2020-07-07 | XMS | Encounter Summary ---
Demographics + + + | Address | [address] | | | [place] [address] | + + + | Home Phone [...] + + | Organization | [facility] | [...] Providers + +------+ + | Care Air Carrier Maintenance Inspector Name | Role | Phone | + +------+ + PCP | Unavailable | + +------+ + Encounter Details +--------+ + + + + | Date | Type | Department | Care Team | Description | +--------+ + + + + | 07/24/ | Hospital | [facility] | | | | 1990 | Encounter | [facility] EM[facility]Y | | | | | | CENTER [address] | | | | | | [place] | | | | | | [address] | | | | | | [phone] | | | +--------+ + + + [...]
--- OUTSIDE RECORDS SUMMARY | ~2020-07-07 | XMS | Encounter Summary ---
Demographics + + + | Address | [address] | | | [place] [address] | + + + | Home Phone [...] | Author | [facility] [employer] [facility] | + + + | Organization | [facility] [employer] [facility] | + [...] Team Providers + +------+ + | Care Loan Assistant Name | Role | Phone | [...] | | | | | | | [facility] [address] | | | | | | | [facility] | | | | | | | [place], | | | | | | | [address] [place] [address] | | | | | | | [place], [place] | | | | | | | [address] Phone: | | | | | | | [phone] | | | | | | | Fax: | | | | | | | [phone] | +--------+--------+ + + + + Encounter Details +--------+ + + + + | Date | Type | Department | Care Team | Description | +--------+ + + + + | 03/26/ | Procedure | [facility] | | Visual field testing | | 2012 | | [place] [facility] | | | | | | [place] at [facility] [address] | | | | | | [address] [facility] | | | | | | for [place] and | | | | | | Healing, [facility] 1, | | | | | | 11th Floor | | | | | | [place], [place] | | | | | | [address] | | | | | | [phone] | | | +--------+ + + + [...] PDT Annabella Au was seen in the [facility] [place] [facility] Department today, 2012, for 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 documented in this encounter Plan of Treatment Not on filedocumented as of this encounter Procedures + +--------+ + + + | Procedure Name | Priori | Date/Time | Associated Diagnosis | Comments | | | ty | | | | + +--------+ + + + | HI VISUAL FIELD | Routin | 03/26/2013 | [...]
--- OUTSIDE RECORDS SUMMARY | ~2020-07-07 | XMS | Encounter Summary ---
Demographics + + + | Address | [address] | | | [place] [address] | + + + | Home Phone [...] + | Organization | [facility] | [...] Providers + +------+ + | Care Retail Team Leader Name | Role | Phone | + +------+ + PCP | Unavailable | + +------+ + Encounter Details +--------+ + + + + | Date | Type | Department | Care Team | Description | +--------+ + + + + | 03/03/ | Emergency | [facility] | Artis Reyes DO | Pain, abdominal, | | 2012 | | [facility]ICAL CENTER | [address] | unknown etiology | | | | EMERGENCY CENTER | [place], [place] | | | | | [address] [facility] | [address] | | | | | [place], [place] | [phone] | | | | | [address] | | | | | | [phone] | | | +--------+ + + + [...] 03/03/132032 Date of Service: 03/03/132032 Status: Signed Blocklayer: Jovanny Collado RN (Registered Nurse) Dr. Reyes @ BS Jovanny Collado RN 03/03/132032 onver ludwin Transaction, Provider Unknown - 03/03/2013 6:56 PM PDT ED Notes by Jovanny Collado RN at 03/03/131855 Author: Jovanny Collado RN Service: (none) Author Type: Registered Nurse Filed: 03/03/131855 Date of Service: 03/03/131855 Status: Signed Blocklayer: Jovanny Collado RN (Registered Nurse) Dr. Reyes @ BS Jovanny Collado RN 03/03/131855 rtis Reyes DO - 03/03/2013 6:55 PM PDTFormatting of this note might be different from the or iginal. ED Provider Notes by Artis Reyes DO at 03/03/131854 Author: Artis Reyes DO Service: (none) Author Type: Physician Filed: 03/04/132236 Date of Service: 03/03/131854 Status: Signed Blocklayer: Artis Reyes DO (Physician) [facility] Department of Emergency Medicine 6:55 PM History [...] cholecystectomy, appendectomy, and one . PCP: [facility] Past Medical History Diagnosis Date Diabetes [...] sore throat CV/Resp: Negative for chest pain, kxvgqkvrl-cy-bnuliq, cough GI: Negative for diarrhea Positive for [...] plan. Records Reviewed Nursing notes. No previous [facility] ED visits available in [facility] for review. Laboratory Evaluation Results Procedure Component Value Ref Range Date/Time Comprehensive metabolic panel [[id number]] (Abnormal) Collected:03/03/131922 Order Status:Completed Updated:03/03/131953 Specimen Information:Blood [...] 65 U/L EGFR >60 >60 mL/min/1.73m2 Lipase [[id number]] Collected:03/03/131922 Order Status:Completed Updated:03/03/131953 Specimen Information:Blood LIPASE 177 73 - 393 U/L Urine test (LAB) [[id number]] Collected:03/03/131939 Order Status:Completed Updated:03/03/131950 Specimen Information:Urine Preg Test, Ur NEGATIVE POC clinitek 10 [[id number]] (Abnormal) Collected:03/03/131940 Order Status:Completed Updated:03/03/131943 Color, UA [...] WBC, UA NEGATIVE NEGATIVE CBC with differential [[id number]] Collected:03/03/131922 Order Status:Completed Updated:03/03/131935 Specimen Information:Blood WBC [...] Follow up With Details Comments Contact Info [facility] As needed [address] [place] [address] [facility] If symptoms worsen [address] [facility] [address] Discharge Medications: New Prescriptions DICYCLOMINE (BENTYL) 20 [...]
--- OUTSIDE RECORDS SUMMARY | ~2020-07-07 | XMS | Encounter Summary ---
Demographics + + + | Address | [address] | | | [place] [address] | + + + | Home Phone [...] + | Author | [facility] [facility] | + + + | Organization | [facility] [employer] [facility] | + + + | Address | Unknown | + + + | Phone | Unavailable | + + + Support + + +---------+ + | Name | Relationship | Address | Phone | + + +---------+ + | Ruby Au | ECON | Unknown | | + + +---------+ + Care Team Providers + +------+ + | Care Burial Needs Salesperson Name | Role | Phone | [...] [facility] | [place], [place] | | | | | Health and Healing, | [address] | | | | | [facility] | [phone] | | | | | floor [place], [place] | | | | | | [address] | | | | | | [phone] | | | +--------+ + + + [...]
--- OUTSIDE RECORDS SUMMARY | ~2020-07-07 | XMS | Encounter Summary ---
Demographics + + + | Address | [address] | | | [place] [address] | + + + | Home Phone [...] + | Author | [facility] [employer] [facility] | + + + | Organization | [facility] [employer] [facility] | + + + | Address | Unknown | + + + | Phone | Unavailable | + + + Support + + +---------+ + | Name | Relationship | Address | Phone | + + +---------+ + | Ruby Au | ECON | Unknown | | + + +---------+ + Care Team Providers + +------+ + | Care Funeral Director'S Assistant Name | Role | Phone | [...] Papilledema | | 2006 | Visit | [place] | [address] | Associated with | | | | Oculoplastics at | [place], [place] | Increased | | | | [place] [address] [address] | [address] | Intracranial | | | | [address] | [phone] | Pressure; 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 Visual Acuity: [facility] RE 20/20-1 LE 20/25-2 NI Pupil: [...]
--- OUTSIDE RECORDS SUMMARY | ~2020-07-07 | XMS | Encounter Summary ---
Demographics + + + | Address | [address] | | | [place] [address] | + + + | Home Phone [...] + + + | Author | [facility] [employer] [facility] | + + + | Organization | [facility] [employer] [facility] | [...] Team Providers + +------+ + | Care Pharmacist Hospital Name | Role | Phone | + [...] Cerebri | | 2006 | Visit | [place] | | (Primary Dx) | | | | Neuro-Ophthalmology | | | | | | [address] [facility] | | | | | | Mailcode: PATTI | | | | | | [place] [address] | | | | | | [phone] | | | +--------+---------+ + + + [...] Referred by: CASIMIRO PAYTON MD [address] [place] [address] Symptoms: Patient feels things are better. Vision [...] Brad Currie MD Neuro-Ophthalmology and Cerebrovascular Disease [employer] of Ophthalmology, Neurology, and Neurosurgery documented in [...]
--- OUTSIDE RECORDS SUMMARY | ~2020-07-07 | XMS | Encounter Summary ---
Demographics + + + | Address | [address] | | | [place] [address] | + + + | Home Phone [...] + + + | Author | [facility] [employer] [facility] | + + + | Organization | [facility] [employer] [facility] | + [...] Providers + +------+ + | Care Bin Filler Name | Role | Phone | [...] | | 2012 | anned | [address] [facility] | | | | | | [address] | | | | | | [place], [place] | | | | | | [address] | | | +--------+ + + + [...]
--- OUTSIDE RECORDS SUMMARY | ~2020-07-07 | XMS | Encounter Summary ---
Demographics + + + | Address | [address] | | | [place] [address] | + + + | Home Phone [...] [facility] [email or web address] [facility] | + + + | Organization | [facility] [employer] [facility] | [...] Providers + +------+ + | Care Research Development Director Name | Role | Phone | [...] Request (Pt | | 2006 | | [place] | Cassi [address] | requests more pain | | | | Oculoplastics at | [place], [place] | medication) | | | | [address] | [address] | | | | | [address] | [phone] | | | | | Eye [place] | | | | | | [facility], 5th floor | | | | | | [place] [address] | | | | | | [phone] | | | +--------+--------+ + + + [...]
--- OUTSIDE RECORDS SUMMARY | ~2020-07-07 | XMS | Encounter Summary ---
Demographics + + + | Address | [address] | | | [place] [address] | + + + | Home Phone [...] Organization | [facility] | [...] Team Providers + +------+ + | Care Anvil Seating Press Operator Name | Role | Phone | + +------+ + PCP | Unavailable | + +------+ + Encounter Details +--------+ + + + + | Date | Type | Department | Care Team | Description | +--------+ + + + + | 09/03/ | Hospital | [facility] | | | | 1991 | Encounter | MED CTR [facility] | | | | | | HEALTH SV [address] | | | | | | [place], | | | | | | [place] [address] | | | | | | [phone] | | | +--------+ + + + [...]
--- OUTSIDE RECORDS SUMMARY | ~2020-07-07 | XMS | Encounter Summary ---
Demographics + + + | Address | [address] | | | [place] [address] | + + + | Home Phone [...] | [facility] | | [...] Providers + +------+ + | Care Color Checker Name | Role | Phone | + +------+ + PCP | Unavailable | + +------+ + Encounter Details +--------+ + + + + | Date | Type | Department | Care Team | Description | +--------+ + + + + | 07/21/ | Hospital | [facility] | | | | 1990 | Encounter | MED CTR EMERGENCY | | | | | | CENTER [address] | | | | | | [place] | | | | | | [address] | | | | | | [phone] | | | +--------+ + + + [...]
--- OUTSIDE RECORDS SUMMARY | ~2020-07-07 | XMS | Encounter Summary ---
Demographics + + + | Address | [address] | | | [place] [address] | + + + | Home Phone [...] + | Author | [facility] | + + + | Organization | [facility] [employer] [facility] | [...] Team Providers + +------+ + | Care Grand Scribe Name | Role | Phone | + [...] /06/ | Telephone | [facility] | [place], | Headache | | 2015 | | [place] | MD [address] | | | | | Neuro-Ophthalmology | [facility] [place] | | | | | at [facility] [address] | [address] | | | | | [facility] | [phone] | | | | | Heatlh and Healing, | | | | | | Building | | | | | | Floor [place], [place] | | | | | | [address] | | | | | | [phone] | | | +--------+ + + + [...]
--- OUTSIDE RECORDS SUMMARY | ~2020-07-07 | XMS | Clinical Summary ---
Demographics + + + | Address | [address] | | | [place] [address] | + + + | Home Phone [...] Providers + +------+ + | Care Personnel Director Name | Role | Phone | + +------+ + | Dennis Maddox | PCP | | + +------+ + Source Comments REBECA is fully live on both [facility] Ambulatory and [facility] InPatient.[facility] University Allergies + + [...] PLUS | | [phone] | 6 | [id number] | id | | | OPEN | | esent | | [place], [place] | | | | CARD | | | | [phone] | | + +--------+ +--------+ + +--------+ [...] | 1975 | [phone] | [place] [address] | | | rene | | | 9 (Home) | | + +--------+ +--------+ + + Advance Directives + + + + + | Type | Date Recorded | Patient | Explanation | | | | Handbag Frames Inspector | | + + + + + | Advance | | | | | Directives and | | | | | Living Will | | | | + + + + + | Power of | | | | | Optical Engineering Technician | | | | + + [...]
--- OUTSIDE RECORDS SUMMARY | ~2020-07-07 | XMS | Encounter Summary ---
Demographics + + + | Address | [address] | | | [place] [address] | + + + | Home Phone [...] + | Author | [facility] | + + + | Organization | [facility] [employer] [facility] | + [...] Team Providers + +------+ + | Care Grounds Restoration Specialist Name | Role | Phone | [...] | | | [facility] | [place], [place] | | | | | Health and Healing, | [address] | | | | | [facility] | [phone] | | | | | floor [place], [place] | | | | | | [address] | | | | | | [phone] | | | +--------+ + + + [...]
--- OUTSIDE RECORDS SUMMARY | ~2020-07-07 | XMS | Encounter Summary ---
Demographics + + + | Address | [address] | | | [place] [address] | + + + | Home Phone [...] + + | Author | [facility] | + + + | Organization | [facility] | + [...] Team Providers + +------+ + | Care Toddler Lead Teacher Name | Role | Phone | [...] Erroneous Encounter | | 2007 | | [facility] | [place] [facility] | - Disregard | | | | and Healing [address] | Neurosurgery [address] | | | | | [address] Center for | [address] | | | | | Health and Healing, | [place], [place] | | | | | Building | [address] | | | | | Floor [place], [place] | | | | | | [address] | | | | | | [phone] | | | +--------+ + + + [...]
--- OUTSIDE RECORDS SUMMARY | ~2020-07-07 | XMS | Encounter Summary ---
Demographics + + + | Address | [address] | | | [place] [address] | + + + | Home Phone [...] | Author | [facility] | + + + | Organization | [facility] [employer] [facility] | + [...] Providers + +------+ + | Care Glass Carrier Name | Role | Phone | [...] Ave | | | | | Ave [address] for | [place], [place] | | | | | Health and Healing, | [address] | | | | | [facility] , 8th | [phone] | | | | | floor [place], [place] | | | | | | [address] | | | | | | [phone] | | | +--------+ + + + [...]
--- OUTSIDE RECORDS SUMMARY | ~2020-07-07 | XMS | Encounter Summary ---
Demographics + + + | Address | [address] | | | [place] [address] | + + + | Home Phone [...] Author | [facility] | | | and [place] | + + + | Organization | [facility] | [...] Team Providers + +------+ + | Care Lockstitcher Name | Role | Phone | + +------+ + PCP | Unavailable | + +------+ + Encounter Details +--------+ + + + + | Date | Type | Department | Care Team | Description | +--------+ + + + + | 07/07/ | Hospital | [facility] | | | | 1991 | Encounter | MED CTR EMERGENCY | | | | | | CENTER [address] | | | | | | [place] | | | | | | [address] | | | | | | [phone] | | | +--------+ + + + [...]
--- OUTSIDE RECORDS SUMMARY | ~2020-07-07 | XMS | Encounter Summary ---
Demographics + + + | Address | [address] | | | [place] [address] | + + + | Home Phone [...] + + + | Author | [facility] | + + + | Organization | [facility] [employer] [facility] | + + + | Address | Unknown | + + + | Phone | Unavailable | + + + Support + + +---------+ + | Name | Relationship | Address | Phone | + + +---------+ + | Ruby Au | ECON | Unknown | | + + +---------+ + Care Team Providers + +------+ + | Care Solution Architect Name | Role | Phone | [...] | | | | | [address] [place] for | [address] | | | | | Health and Healing, | [facility] [place] | | | | | | [address] | | | | | Floor [place], [place] | | | | | | [address] | | | | | | [phone] | | | +--------+--------+ + + + [...]
--- OUTSIDE RECORDS SUMMARY | ~2020-07-07 | XMS | Encounter Summary ---
Demographics + + + | Address | [address] | | | [place] [address] | + + + | Home Phone [...] + | Author | [facility] [employer] [facility] [place] [facility] | + + + | Organization | [facility] [employer] [facility] [...] Team Providers + +------+ + | Care Audit Director Name | Role | Phone | [...] | | | Ave Center for | [place], [place] | | | | | Health and Healing, | [address] | | | | | [facility] | [phone] | | | | | floor [place], [place] | | | | | | [address] | | | | | | [phone] | | | +--------+---------+ + + + [...] wanted to have LP shunt instead of BIODIESEL PLANT SUPERINTENDENT shunt because she d oes not weant [...]
--- OUTSIDE RECORDS SUMMARY | ~2020-07-07 | XMS | Encounter Summary ---
Demographics + + + | Address | [address] | | | [place] [address] | + + + | Home Phone [...] + + | Author | [facility] | + + + | Organization | [facility] | + + + | Address | Unknown | + + + | Phone | Unavailable | + + + Support + + +---------+ + | Name | Relationship | Address | Phone | + + +---------+ + | Ruby Au | ECON | Unknown | | + + +---------+ + Care Team Providers + +------+ + | Care Creative Writing Professor Name | Role | Phone | [...] Care Coordination | | 2018 | | [place] | MD [address] | | | | | Neuro-Ophthalmology | [place], [place] | | | | | at [facility] [address] | [address] | | | | | Ave [facility] | [phone] | | | | | Heat[place] and Teagan, | | | | | | | | | | | | Floor [place], [place] | | | | | | [address] | | | | | | [phone] | | | +--------+ + + + [...]
--- OUTSIDE RECORDS SUMMARY | ~2020-07-07 | XMS | Encounter Summary ---
Demographics + + + | Address | [address] | | | [place] [address] | + + + | Home Phone [...] Organization | [facility] | | | and [...] Team Providers + +------+ + | Care Development Officer Name | Role | Phone | + +------+ + PCP | Unavailable | + +------+ + Encounter Details +--------+ + + + + | Date | Type | Department | Care Team | Description | +--------+ + + + + | 09/20/ | Hospital | [facility] | | | | 1991 | Encounter | MED CTR [facility]ENS | | | | | | HEALTH SV [address] | | | | | | [place], | | | | | | [place] [address] | | | | | | [phone] | | | +--------+ + + + [...]
--- OUTSIDE RECORDS SUMMARY | ~2020-07-07 | XMS | Encounter Summary ---
Demographics + + + | Address | [address] | | | [place] [address] | + + + | Home Phone [...] + | Author | [facility] | + + + | Organization | [facility] [employer] [facility] | [...] Team Providers + +------+ + | Care Employment Advisor Name | Role | Phone | + +------+ + | Brenden Benavides MD | PCP | | + +------+ + Encounter Details +--------+ + + + + | Date | Type | Department | Care Team | Description | +--------+ + + + + | 02/22/ | Telephone | [facility] | Hay Hughes MD 8[address] | | | 2006 | | [place] | DANIELITO Hammer | | | | | Oculoplastics at | [place], [place] | | | | | [address] | [address] | | | | | [address] | [phone] | | | | | Eye [place] | | | | | | [address] | | | | | | [place] [address] | | | | | | [phone] | | | +--------+ + + + [...]
--- OUTSIDE RECORDS SUMMARY | ~2020-07-07 | XMS | Encounter Summary ---
Demographics + + + | Address | [address] | | | [place] [address] | + + + | Home Phone [...] | Author | [facility] [facility] | + + + | Organization | [facility] Interactive Investor [facility] [...] Team Providers + +------+ + | Care Sponge Maker Name | Role | Phone | [...] + + | 08/24/ | Emergency | [facility] Emergency | Tylor Mcclellan, | | | 2010 | | Department [address] | Mickie Cruz | | | | | [address] | MD Joey [address] | | | | | [facility] | Dilshad Sandra Maloney | | | | | [place], [place] | [place], [place] | | | | | [address] | [address] | | | | | [phone] | [phone] | | | | | | | [...] us take care of you at [facility] today. Follow up with primary care [...] + +---------+ + + | [facility] DEPARTMENT OF | | | | | [...]
--- OUTSIDE RECORDS SUMMARY | ~2020-07-07 | XMS | Encounter Summary ---
Demographics + + + | Address | [address] | | | [place] [address] | + + + | Home Phone [...] + | Author | [facility] [employer] [facility] | + + + | Organization | [facility] [employer] [facility] | + [...] Providers + +------+ + | Care Cash Applications Associate Name | Role | Phone | [...] + | 09/14/ | Telephone | Neurosurgery [address] | Magdiel Fallon, | Headache | | 2008 | | [address] | ,PhD [address] | | | | | [place] Mailcode:OP14B | [address] | | | | | [facility] | [place], [place] | | | | | [place], [place] | [address] | | | | | [address] | [phone] | | | | | [phone] | | | +--------+ + + + [...]
--- OUTSIDE RECORDS SUMMARY | ~2020-07-07 | XMS | Encounter Summary ---
Demographics + + + | Address | [address] | | | [place] [address] | + + + | Home Phone [...] + | Organization | [facility] | [...] Providers + +------+ + | Care Curriculum And Instruction Specialist Name | Role | Phone | + +------+ + PCP | Unavailable | + +------+ + Encounter Details +--------+ + + + + | Date | Type | Department | Care Team | Description | +--------+ + + + + | 10/27/ | Hospital | [facility] | | | | 1990 | Encounter | MED CTR EMERGENCY | | | | | | CENTER [address] | | | | | | [place] | | | | | | [address] | | | | | | [phone] | | | +--------+ + + + [...]
--- OUTSIDE RECORDS SUMMARY | ~2020-07-07 | XMS | Encounter Summary ---
Demographics + + + | Address | [address] | | | [place] [address] | + + + | Home Phone [...] Author | [facility] [employer] [facility] | + + + | Organization | [facility] [employer] [facility] [...] Team Providers + +------+ + | Care Wing Scorer Name | Role | Phone | + [...] | | | | Ave [facility] | [place], [place] | | | | | Health and Healing, | [address] | | | | | Building 1, 8th | [phone] | | | | | floor [place], [place] | | | | | | [address] | | | | | | [phone] | | | +--------+---------+ + + + [...]
--- OUTSIDE RECORDS SUMMARY | ~2020-07-07 | XMS | Encounter Summary ---
Demographics + + + | Address | [address] | | | [place] [address] | + + + | Home Phone [...] + + | Author | [facility] | + + + | Organization | [facility] [employer] [facility] [...] Team Providers + +------+ + | Care Granite Setter Name | Role | Phone | [...] Ave | | | | | [facility] | [place], [place] | | | | | Health and Healing, | [address] | | | | | [facility] | [phone] | | | | | floor [place], [place] | | | | | | [address] | | | | | | [phone] | | | +--------+ + + + [...]
--- OUTSIDE RECORDS SUMMARY | ~2020-07-07 | XMS | Encounter Summary ---
Demographics + + + | Address | [address] | | | [place] [address] | + + + | Home Phone [...] + + | Author | [facility] | + + + | Organization | [facility] [employer] [facility] | + [...] Providers + +------+ + | Care Director Digital Name | Role | Phone | + [...] | | | | | cerebri | [address] | | | | | | Procedures | Ave | | | | | | CONSULT TO | [place], [place] | | | | | | [facility] | [address] | | | | | | | Phone: | | | | | | | [phone] | | | | | | | Fax: | | | | | | | [phone] | | +--------+--------+ + + + + [...] Cerebri | | 2005 | Visit | [facility] | [address] | (Primary Dx) | | | | Rd Mailcode:OP14B | [place], [place] | | | | | [facility] | [address] | | | | | [place], [place] | [phone] | | | | | [address] | | | | | | [phone] | | | +--------+---------+ + + + [...] pressu re. Referral to Dr. Maloney in [place] where a lumboperitoneal shunt was placed and subsequently explanted due to infection and migration of the catheter tip from the peritoneal space. She feels that her symptoms were helped at the time of the placement of the shunt; the head aches and visual problems have worsened since shunt removal. She has opted to come to [facility] rather than to return to [place] based on travel convenience. Review of Systems: [...] brain without; Neuro-ophthalmology consultation. [facility] Treatment Not on [...] + +---------+ + + | [facility] DEPARTMENT OF | | | | | RADIOLOGY | | | | + +---------+ + + documented in this encounter Visit Diagnoses + + | Diagnosis | + + | Pseudotumor cerebri - Primary Benign intracranial hypertension | + + documented in this encounter
--- OUTSIDE RECORDS SUMMARY | ~2020-07-07 | XMS | Encounter Summary ---
Demographics + + + | Address | [address] | | | [place] [address] | + + + | Home Phone [...] Organization | [facility] | | | [...] Providers + +------+ + | Care Automatic Coin Machine Mechanic Name | Role | Phone | [...] [place] | | | | | | [address] | | | | | | [phone] | | | +--------+ + + + [...]
--- OUTSIDE RECORDS SUMMARY | ~2020-07-07 | XMS | Encounter Summary ---
Demographics + + + | Address | [address] | | | [place] [address] | + + + | Home Phone [...] + | Organization | [facility] | | | [...] Providers + +------+ + | Care Boom Conveyor Operator Name | Role | Phone | + +------+ + PCP | Unavailable | + +------+ + Encounter Details +--------+ + + + + | Date | Type | Department | Care Team | Description | +--------+ + + + + | 08/21/ | Hospital | [facility] | | | | 1991 | Encounter | MED CTR EMERGENCY | | | | | | CENTER [address] | | | | | | [place] | | | | | | [address] | | | | | | [phone] | | | +--------+ + + + [...]
--- OUTSIDE RECORDS SUMMARY | ~2020-07-07 | XMS | Encounter Summary ---
Demographics + + + | Address | [address] | | | [place] [address] | + + + | Home Phone [...] + | Author | [facility] | + + + | Organization | [facility] [employer] [facility] [...] Providers + +------+ + | Care Instrument Repairer Helper Name | Role | Phone [...] | Headache | | 2005 | | [place]/Ophthalmol | MD Jordin | | | | | leon at [facility] [address] | | | | | | [address] [facility] | | | | | | Health and Healing, | | | | | | Building | | | | | | Floor [place], [place] | | | | | | [address] | | | | | | [phone] | | | +--------+ + + + [...]
--- OUTSIDE RECORDS SUMMARY | ~2020-07-07 | XMS | Encounter Summary ---
Demographics + + + | Address | [address] | | | [place] [address] | + + + | Home Phone [...] + | Author | [facility] | + + + | Organization | [facility] [employer] [facility] [...] Team Providers + +------+ + | Care Mass Spectrometry Manager Name | Role | Phone | [...] | | | | | [address] [place] for | [address] | | | | | Health and Healing, | [place], [place] | | | | | | [address] | | | | | Floor [place], [place] | | | | | | [address] | | | | | | [phone] | | | +--------+ + + + [...]
--- OUTSIDE RECORDS SUMMARY | ~2020-07-07 | XMS | Encounter Summary ---
Demographics + + + | Address | [address] | | | [place] [address] | + + + | Home Phone [...] | Author | [facility] [employer] [facility] | + + + | Organization | [facility] [employer] [facility] | + [...] Providers + +------+ + | Care Pull Out Operator Name | Role | Phone | [...] Cerebri; | | 2006 | Visit | [place] | Cassi Clark | Pain in or Around | | | | Oculoplastics at | [place], [place] | Eye | | | | [facility] [address] | [address] | | | | | [address] | [phone] | | | | | Eye [place] | | | | | | [facility] floor | | | | | | [place] [address] | | | | | | [phone] | | | +--------+---------+ + + + [...] to be seen here or by an vb net developer in [facility], but she says she does not have transportation. I will call in Vicodin #20, pt to call i mmediately if there is any worsening. Pt states lucho lump in left restoration is gone. No pain. Pt. Had cough [...]
--- OUTSIDE RECORDS SUMMARY | ~2020-07-07 | XMS | Encounter Summary ---
Demographics + + + | Address | [address] | | | [place] [address] | + + + | Home Phone [...] Organization | [facility] | | | and [...] Team Providers + +------+ + | Care Pest Control Applicator Name | Role | Phone | + +------+ + PCP | Unavailable | + +------+ + Encounter Details +--------+ + + + + | Date | Type | Department | Care Team | Description | +--------+ + + + + | 04/21/ | Hospital | [facility] | | | | 1995 | Encounter | MED CTR EMERGENCY | | | | | | CENTER [address] | | | | | | [place] | | | | | | [address] | | | | | | [phone] | | | +--------+ + + + [...]
--- OUTSIDE RECORDS SUMMARY | ~2020-07-07 | XMS | Encounter Summary ---
Demographics + + + | Address | [address] | | | [place] [address] | + + + | Home Phone | | + + + | Preferred Language | Unknown | + + + | Marital Status | | + + + | Islam Affiliation | NON | + + + | Race | or | + + + | Ethnic Group | Not or | + + + Author + + + | Author | [facility] [employer] [facility] | + + + | Organization | [facility] Intellig[employer] [facility] [...] + +------+ + | Care Director Global Intelligence Name | Role | Phone | + +------+ + | Yeisno Simms MD | PCP | Unavailable | + +------+ + Encounter Details +--------+ + + + + | Date | Type | Department | Care Team | Description | +--------+ + + + + | 04/06/ | Telephone | Neurosurgery at | [place], | | | 2010 | | [address] | MD Chad [address] | | | | | kiran [facility] | [facility] | | | | | Health and Healing, | Rd [place], [place] | | | | | | [address] | | | | | floor [place], [place] | [phone] | | | | | [address] | | | | | | [phone] | | | +--------+ + + + [...]
--- OUTSIDE RECORDS SUMMARY | ~2020-07-07 | XMS | Encounter Summary ---
Demographics + + + | Address | [address] | | | [place] [address] | + + + | Home Phone [...] | Organization | [facility] [...] Team Providers + +------+ + | Care Dock Superintendent Name | Role | Phone | + +------+ + PCP | Unavailable | + +------+ + Encounter Details +--------+ + + + + | Date | Type | Department | Care Team | Description | +--------+ + + + + | 10/12/ | Hospital | [facility] | | | | 1991 | Encounter | MED CTR [facility] | | | | | | HEALTH SV [address] | | | | | | [place], | | | | | | [place] [address] | | | | | | [phone] | | | +--------+ + + + [...]
--- OUTSIDE RECORDS SUMMARY | ~2020-07-07 | XMS | Encounter Summary ---
Demographics + + + | Address | [address] | | | [place] [address] | + + + | Home Phone [...] | [facility] | + + + | Organization | [facility] [employer] [facility] | + [...] Providers + +------+ + | Care Home Energy Consultant Supervisor Name | Role | Phone | [...] | Headache | | 2005 | | [place]/Ophthalmol | MD Jordin | | | | | leon at [facility] [address] | | | | | | [address] [facility] | | | | | | Health and Healing, | | | | | | Building | | | | | | Floor [place], [place] | | | | | | [address] | | | | | | [phone] | | | +--------+ + + + [...]
--- OUTSIDE RECORDS SUMMARY | ~2020-07-07 | XMS | Encounter Summary ---
Demographics + + + | Address | [address] | | | [place] [address] | + + + | Home Phone [...] | Organization | [facility] [...] Team Providers + +------+ + | Care Configuration Developer Name | Role | Phone | + +------+ + PCP | Unavailable | + +------+ + Encounter Details +--------+ + + + + | Date | Type | Department | Care Team | Description | +--------+ + + + + | 10/04/ | Hospital | [facility] | | | | 1991 | Encounter | MED CTR WOMENS | | | | | | HEALTH [address] | | | | | | [place], | | | | | | [place] [address] | | | | | | [phone] | | | +--------+ + + + [...]
--- OUTSIDE RECORDS SUMMARY | ~2020-07-07 | XMS | Encounter Summary ---
Demographics + + + | Address | [address] | | | [place] [address] | + + + | Home Phone [...] + | Organization | [facility] | | [...] Providers + +------+ + | Care Machine Tool Technician Instructor Name | Role | Phone | + +------+ + PCP | Unavailable | + +------+ + Encounter Details +--------+ + + + + | Date | Type | Department | Care Team | Description | +--------+ + + + + | 05/31/ | Hospital | [facility] | | | | 1991 | Encounter | MED CTR WOMENS | | | | | | HEALTH [address] | | | | | | [place], | | | | | | [place] [address] | | | | | | [phone] | | | +--------+ + + + [...]
--- OUTSIDE RECORDS SUMMARY | ~2020-07-07 | XMS | Encounter Summary ---
Demographics + + + | Address | [address] | | | [place] [address] | + + + | Home Phone [...] + + | Author | [facility] | + + + | Organization | [facility] [employer] [facility] | + [...] Team Providers + +------+ + | Care Prime Broker Name | Role | Phone | + [...] | | | Ave Center for | [place], [place] | Encounters | | | | Health and Healing, | [address] | | | | | [facility] | [phone] | | | | | floor [place], [place] | | | | | | [address] | | | | | | [phone] | | | +--------+ + + + [...]
--- OUTSIDE RECORDS SUMMARY | ~2020-07-07 | XMS | Encounter Summary ---
Demographics + + + | Address | [address] | | | [place] [address] | + + + | Home Phone [...] | Located Within [facility] | [...] Team Providers + +------+ + | Care Etl Architect Name | Role | Phone | [...] [address] | | | | | [place] [address] | [facility] | | | | | DR [place] | [place] [address] | | | | | [address] | [phone] | | | | | [phone] | | | +--------+ + + + [...]
--- OUTSIDE RECORDS SUMMARY | ~2020-07-07 | XMS | Encounter Summary ---
Demographics + + + | Address | [address] | | | [place] [address] | + + + | Home Phone [...] | [facility] [email or web address] | + + + | Organization | [facility] [email or web address] [facility] | + [...] Team Providers + +------+ + | Care Carpentry Supervisor Name | Role | Phone | [...] | | Ophthalmology | | Non-[facility] | [place], | | | | | | Epic Dept | Graciela Guardado MD | | | | | | | [address] | | | | | | | Ave | | | | | | | [place], [place] | | | | | | | [address] | | | | | | | Phone: | | | | | | | [phone] | | | | | | | Fax: | | | | | | | [phone] | +--------+--------+ + + + + Encounter Details +--------+---------+ + + + | Date | Type | Department | Care Team | Description | +--------+---------+ + + + | 03/26/ | Office | [facility] | Mo Hood | Pseudotumor cerebri | | 2012 | Visit | [place]/Ophthalmol Leif Amador MD | (Primary Dx); | | | | ogy at [facility] [address] | | Depression; Type II | | | | [address] [facility] for | | or unspecified type | | | | Health and Healing, | | diabetes mellitus | | | | Building | | without mention of | | | | Floor [place], [place] | | complication, not | | | | [address] | | stated as | | | | [phone] | | uncontrolled; PTSD | | | [...] HPI: 37 y.o. year old female from [place] : Patient presents with: IIH - Idiopathic [...] because they live 4 hours away in [facility]. Tobacco use: reports that she has [...] Right Left Disc 1+ Optic disc edema, +POUND ATTENDANT 2+ Optic disc edema, RNFL whitening at the superonasal borde r of the disc. There is spontaneous pulsing of the entire disc head with heart beat. C/D Ratio 0.1 0.1 Macula Normal Normal Vessels Engorged. tortuous Engorged. tortuous Periphery Normal Normal Neuro/Psych Oriented x3: Yes Mood/Affect: Normal See [facility] Ophthalmology Exam Module for additional exam [...] sheath fenestra tion (by Dr. Hughes at [facility] in 2006) and s/p multiple lumboperitoneal shunt revisions/failures. She has stable symptoms that include biweekly headaches, pulsatile tinnitus and TVOs. Her h eadaches actually improve with lying down, however, which is less concerning for Idiopathic intracranial hypertension and more consistent with migraine or some other headache etiology. HVF 24-2 today consistent with previous descriptions of Oliveira VF's from 2006 (enlarged b stevenson spots) but nothing to [...] Dr. Lux. Mo Hood MD Resident Physician [facility], PGY-2 [facility] Physician: Mo Hood MD, 03/26/2013 documented [...]
--- OUTSIDE RECORDS SUMMARY | ~2020-07-07 | XMS | Encounter Summary ---
Demographics + + + | Address | [address] | | | [place] [address] | + + + | Home Phone [...] | Author | [facility] [employer] [facility] | + + + | Organization | [facility] [employer] [facility] [...] Team Providers + +------+ + | Care Access Specialist Name | Role | Phone | [...] | | | | Sky Maloney | [facility], | | | | | | [place], [place] | 10th Floor | | | | | | [address] | [place], [place] | | | | | | Phone: | [address] | | | | | | [phone] | Phone: | | | | | | Fax: | [phone] | | | | | | [phone] | Fax: | | | | | | | [phone] | +--------+--------+ + + + + Reason for Visit + + + | Reason | Comments | + + + | 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 | | + + + Encounter Details +--------+ + + + + | Date | Type | Department | Care Team | Description | +--------+ + + + + | 03/13/ | Emergency | [facility] Emergency | Mack Castrejon MD | | | 2012 | | Department [address] | [address] | | | | [address] | [facility] [place] | | | | | [facility] | [place], [place] | | | | | [place], [place] | [address] | | | | | [address] | [phone] | | | | | [phone] | | | | | | | [...] documented in this encounter Discharge Instructions Instructions AgapitoAmol - 03/13/2013Formatting of this note might be different from the irma aviva. Thanks for coming to [facility] today. Your head CT was negative for any new findings. The neurosurgeon did not think there was a malfunction in your shunt. The reproduction specialist recommends you taking Diomox again and follow up in 1 week at [facility]. Please follow up with your doctor. Rest, [...] + + + | [facility] | [address] | [place], [place] | | | [facility] | [address] | [address] | | | TESTS | | | [...] | + + + + + | [facility] | [address] | [place] [address] | | | SERVICES, CORE | SKY [...] | | | | | CHRISTIANO TORRES ([id number]) | | | | | | on 03/14/2013 10:35:55 AM | | | | + + + + + + + + | Specimen | + + | | + + + + + | Narrative | Performed At | + + + | Please click | [facility] DEPT OF | | on view image for the detailed interpretation from App[employer] results. | CARDIOLOGY | + + + + + + + + | Performing | Address | City/State/Zipcode | Phone Number | | Organization | | | | + + + + + | [facility] DEPT OF | [address] | [place], [place] | | | CARDIOLOGY | [address] | [address] | | + + + + + [...] [facility] | [address] | [place], [place] | | | [facility] CARE | [facility] | [address] | | | TESTS | | | [...] [facility] | [address] | [place] [address] | | | SERVICES, CORE | PARK [...] | + + + + + | [facility] | [address] | [place] [address] | | | SERVICES, CORE | SKY [...] | | | LABORATORY | | | SLOVENIAN | | | SERVICES, | | | [...] [facility] | [address] | [place] [address] | | | SERVICES, CORE | PARK [...] | + + + + + | [facility] | [address] | [place] [address] | | | SERVICES, CORE | SKY [...] + | [place] - AIRPORT - | [address] | [place] [address] | | | [place] | | | | + + + + + RAINBOW HOLD TUBE - RED TOP (03/13/2013 11:52 AM PDT) + + | Specimen | + + | Blood - Blood | + + + + + + + | Performing | Address | City/State/Zipcode | Phone Number | | Organization | | | | + + + + + | [facility] | [address] [facility] | [place] [address] | | | SERVICES, CORE | SKY [...]
--- OUTSIDE RECORDS SUMMARY | ~2020-07-07 | XMS | Encounter Summary ---
Demographics + + + | Address | [address] | | | [place] [address] | [...] + | Organization | [facility] | | | and [place] | [...] | 07/12/ | Hospital | [facility] | Conversion | | | 2010 | Encounter | HEART MED CTR | Transaction, | | | | | EMERGENCY CENTER | Provider Unknown | | | | | [address] | | | | | | [place] | (Fax) | | | | | [address] | | | | | | [phone] | | | +--------+ + + + [...]
--- OUTSIDE RECORDS SUMMARY | ~2020-07-07 | XMS | Encounter Summary ---
Demographics + + + | Address | [address] | | | [place] [address] | + + + | Home Phone [...] | Organization | [facility] [...] Team Providers + +------+ + | Care Guide Foreign Tour Name | Role | Phone | + +------+ + PCP | Unavailable | + +------+ + Encounter Details +--------+ + + + + | Date | Type | Department | Care Team | Description | +--------+ + + + + | 09/30/ | Hospital | [facility] | | | | 1991 | Encounter | MED CTR WOMENS | | | | | | HEALTH SV [address] | | | | | | [place], | | | | | | [place] [address] | | | | | | [phone] | | | +--------+ + + + [...]
--- OUTSIDE RECORDS SUMMARY | ~2020-07-07 | XMS | Encounter Summary ---
Demographics + + + | Address | [address] | | | [place] [address] | + + + | Home Phone [...] | Author | [facility] | + + + | Organization | [facility] [employer] [facility] [...] Team Providers + +------+ + | Care Vinyl Cutter Name | Role | Phone | [...] | | | | | [facility] | [place], [place] | | | | | [place], [place] | [address] | | | | | [address] | [phone] | | | | | [phone] | | | +--------+ + + + [...]
--- OUTSIDE RECORDS SUMMARY | ~2020-07-07 | XMS | Encounter Summary ---
Demographics + + + | Address | [address] | | | [place] [address] | + + + | Home Phone [...] + | Author | [facility] [employer] [facility] | + + + | Organization | [facility] [employer] [facility] | + + [...] Providers + +------+ + | Care Pneumatic Tube Fitter Name | Role | Phone | [...] Refill Request | | 2007 | | [facility] | [place]SE | | | | | and Healing [address] | Neurosurgery [address] | | | | | [address] Center for | [address] | | | | | Health and Healing, | [place], [place] | | | | | Building | [address] | | | | | Floor [place], [place] | | | | | | [address] | | | | | | [phone] | | | +--------+--------+ + + + [...]
--- OUTSIDE RECORDS SUMMARY | ~2020-07-07 | XMS | Encounter Summary ---
Demographics + + + | Address | [address] | | | [place] [address] | + + + | Home Phone [...] + | Author | [facility] | + + + | Organization | [facility] [...] Providers + +------+ + | Care Oil Field Equipment Mechanic Supervisor Name | Role | Phone | + +------+ + | Brenden Benavides MD | PCP | | + +------+ + Encounter Details +--------+ + + + + | Date | Type | Department | Care Team | Description | +--------+ + + + + | 02/23/ | Telephone | [facility] | Brad Currie MD | | | 2006 | | [place] | | | | | | Neuro-Ophthalmology | | | | | | [address] [facility] | | | | | | Mailcode: PATTI | | | | | | [place] [address] | | | | | | [phone] | | | +--------+ + + + [...]
--- OUTSIDE RECORDS SUMMARY | ~2020-07-07 | XMS | Encounter Summary ---
Demographics + + + | Address | [address] | | | [place] [address] | + + + | Home Phone [...] + | Author | [facility] [facility] | + + + | Organization | [facility] [employer] [facility] | + [...] Providers + +------+ + | Care Electronic Parts Salesperson Name | Role | Phone | [...] | | | [place] Mailcode: [id number] | [place], [place] | | | | | [place], [place] | [address] | | | | | [address] | [phone] | | | | | [phone] | | | +--------+ + + + [...]
--- OUTSIDE RECORDS SUMMARY | ~2020-07-07 | XMS | Encounter Summary ---
Demographics + + + | Address | [address] | | | [place] [address] | + + + | Home Phone [...] + + + | Author | [facility] | + + + | Organization | [facility] [employer] [facility] [...] Team Providers + +------+ + | Care Microstrategy Bi Developer Name | Role | Phone | + +------+ + | Pedro Luis Sams MD | PCP | | + +------+ + Encounter Details +--------+ + + + + | Date | Type | Department | Care Team | Description | +--------+ + + + + | 10/19/ | Telephone | [facility] | Funmilayo Osorio MD | | | 2010 | | [place]/Ophthalmol | [address] | | | | | leon at [facility] [address] | [place], [place] | | | | | [address] [facility] | [address] | | | | | Health and Healing, | [phone] | | | | | | | | | | | Floor [place], [place] | | | | | | [address] | | | | | | [phone] | | | +--------+ + + + [...]
--- OUTSIDE RECORDS SUMMARY | ~2020-07-07 | XMS | Encounter Summary ---
Demographics + + + | Address | [address] | | | [place] [address] | + + + | Home Phone [...] | Author | [facility] | + + + | Organization | [facility] [employer] [facility] | + + + | Address | Unknown | + + + | Phone | Unavailable | + + + Support + + +---------+ + | Name | Relationship | Address | Phone | + + +---------+ + | Ruby Au | ECON | Unknown | | + + +---------+ + Care Team Providers + +------+ + | Care Shoulder Sawyer Name | Role | Phone | + [...] | | | | | | | [facility] [address] | | | | | | | [facility] | | | | | | | [place], | | | | | | | [address] [place] [address] | | | | | | | [place], [place] | | | | | | | [address] Phone: | | | | | | | [phone] | | | | | | | Fax: | | | | | | | [phone] | +--------+--------+ + + + + Encounter Details +--------+ + + + + | Date | Type | Department | Care Team | Description | +--------+ + + + + | 03/26/ | Procedure | [facility] | | Visual field testing | | 2012 | | [place] [facility] | | | | | | [facility] at [facility] [address] | | | | | | [facility] | | | | | | for Heatlh and | | | | | | Healing, [facility] 1, | | | | | | 11th Floor | | | | | | [place], [place] | | | | | | [address] | | | | | | [phone] | | | +--------+ + + + [...] PDT Annabella Au was seen in the [facility] [place] [facility] Department today, 2012, for 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 documented in this encounter Plan of Treatment Not on filedocumented as of this encounter Procedures + +--------+ + + + | Procedure Name | Priori | Date/Time | Associated Diagnosis | Comments | | | ty | | | | + +--------+ + + + | [place] VISUAL FIELD | Routin | 03/26/2013 | [...]
--- OUTSIDE RECORDS SUMMARY | ~2020-07-07 | XMS | Encounter Summary ---
Demographics + + + | Address | [address] | | | [place] [address] | + + + | Home Phone [...] + + | Author | [facility] | + + + | Organization | [facility] [email or web address] [facility] | [...] Providers + +------+ + | Care Corn Cutter Name | Role | Phone | [...] [address] | | | | | | [facility] | | | | | | [place], [place] | | | | | | [address] | | | | | | [phone] | | | +--------+ + + + [...]
--- OUTSIDE RECORDS SUMMARY | ~2020-07-07 | XMS | Encounter Summary ---
Demographics + + + | Address | [address] | | | [place] [address] | + + + | Home Phone [...] Author | [facility] [employer] [facility] | + + + | Organization | [facility] [employer] [facility] | [...] Team Providers + +------+ + | Care Workers' Compensation Claims Supervisor Name | Role | Phone | [...] Letter From | | 2007 | | [facility] | [address] | Specialist | | | | and Healing [address] | [place], [place] | | | | | [address] [facility] | [address] | | | | | Health and Healing, | [phone] | | | | | | | | | | | Floor [place], [place] | | | | | | [address] | | | | | | [phone] | | | +--------+ + + + [...]
--- OUTSIDE RECORDS SUMMARY | ~2020-07-07 | XMS | Encounter Summary ---
Demographics + + + | Address | [address] | | | [place] [address] | + + + | Home Phone | | + + + | Preferred Language | Unknown | + + + | Marital Status | | + + + | Moravian Affiliation | Unknown | + + + | Race | Unknown | + + + | Ethnic Group | Unknown | + + + Author + + + | Author | [facility] | | | and [place] | + + + | Organization | [facility] | | [...] Team Providers + +------+ + | Care Intelligence Senior Sergeant Name | Role | Phone | + +------+ + PCP | Unavailable | + +------+ + Encounter Details +--------+ + + + + | Date | Type | Department | Care Team | Description | +--------+ + + + + | 07/30/ | Hospital | [facility] | | | | 2008 - | Encounter | MED CTR MED ONC | | | | | | [address] | | | | 08/02/ | | [place] [address] | | | | 2008 | | [phone] | | | +--------+ + + + [...]
--- OUTSIDE RECORDS SUMMARY | ~2020-07-07 | XMS | Encounter Summary ---
Demographics + + + | Address | [address] | | | [place] [address] | + + + | Home Phone [...] | Author | [facility] | + + + | Organization | [facility] [employer] [facility] | + + + | Address | Unknown | + + + | Phone | Unavailable | + + + Support + + +---------+ + | Name | Relationship | Address | Phone | + + +---------+ + | Ruby Au | ECON | Unknown | | + + +---------+ + Care Team Providers + +------+ + | Care Engraver Rubber Name | Role | Phone | + +------+ + | Brenden Benavides MD | PCP | | + +------+ + Encounter Details +--------+ + + + + | Date | Type | Department | Care Team | Description | +--------+ + + + + | 02/21/ | Telephone | [facility] | [address] | | | 2006 | | [place] | [address] | | | | | Oculoplastics at | [facility], [place] | | | | | Maicol Perez [address] | [address] | | | | | [address] | | | | | | Eye [place] | | | | | | [facility], 5th floor | | | | | | [place] [address] | | | | | | [phone] | | | +--------+ + + + [...]
--- OUTSIDE RECORDS SUMMARY | ~2020-07-07 | XMS | Encounter Summary ---
Demographics + + + | Address | [address] | | | [place] [address] | + + + | Home Phone [...] + + | Author | [facility] | + + + | Organization | [facility] [...] Team Providers + +------+ + | Care Behavioral Health Worker Name | Role | Phone | [...] Erroneous Encounter | | 2007 | | [facility] | PA [facility] | - Disregard | | | | and Healing [address] | Neurosurgery [address] | | | | | [address] Center for | [address] | | | | | Health and Healing, | [place], [place] | | | | | Building | [address] | | | | | Floor [place], [place] | | | | | | [address] | | | | | | [phone] | | | +--------+ + + + [...]
--- OUTSIDE RECORDS SUMMARY | ~2020-07-07 | XMS | Encounter Summary ---
Demographics + + + | Address | [address] | | | [place] [address] | + + + | Home Phone [...] + | Organization | [facility] | | [...] Team Providers + +------+ + | Care Material Expeditor Name | Role | Phone | + +------+ + PCP | Unavailable | + +------+ + Encounter Details +--------+ + + + + | Date | Type | Department | Care Team | Description | +--------+ + + + + | 01/27/ | Hospital | [facility] | Marine Oden | | | 2011 - | Encounter | MED CTR EMERGENCY | DO Gaurang Drake | | | | | [place] | [place], [place] | | | 01/28/ | | [place], [place] | [address] | | | 2011 | | [address] | | | | | | [phone] | | | +--------+ + + + [...] her discharge instructions with referral to a restaurant crew for the rash, as well as a prescription for tramadol, including a home pack of it, and some Zofran. She walked out before evaluation was complete . Therefore, please add to the discharge diagnosi s, left before evaluation complete. DICTATED BY: Vern Carlin M.D. Emergency Medicine JOB #: [id number] EXT JOB #:[id number] <Electronicall y Signed by Vern Carlin MD> 02/07/12 0734 Vern Carlin MD - 01/28/2012 10:55 PM PSTDATE: 01/28/2012 CHIEF COMPLAINT: Headache and rash. HISTORY OF PRESENT ILLNESS: Annabella is a 36-year-old female, states she has had what sounds like a michelle tricular or a VENTILATION WORKER shunt placed for hydrocephalus several years ago. [...] want to go to the ER in [place], as she has had bad experience with [...] Vern Carlin M.D. Emergency Medicine JOB #: [id number] EXT JOB #:[id number] <Electronicall y Signed by Vern Carlin MD> [...] Performed At | + + + | [facility] Diagnostic Imaging Department | [place] | | [address] | [facility] | | UNENHANCED HEAD CT, 01/28/2012, [...] COMMUNICATED TO THE ER STAFF BY THE [facility] RADIOLOG IST ON | | | 01/29/2012 AT 0003 HOURS. Dictated Date/Time: 01/29/2012 09:41 | | | Transcribed Date/Time: 01/29/2012 09:47 Lye Bath Operator: | | | <Electronically Signed by Ivan Smalls MD> 01/29/12 1606 | | + + + + + | Procedure Note | + + | Neal, Rad Conversion - 01/04/2014 4:51 PM [facility] | | Diagnostic Imaging Department [address] [place] [address] | | UNENHANCED HEAD CT, 01/28/2012, 2342 [...] ER STAFF BY | | [facility] ON 01/29/2012 AT 0003 HOURS. [...] 09:41 | |Transcribed Date/Time: 01/29/2012 09:47 | |Lye Bath Operator: | |<Electronically Signed by Ivan Smalls MD> 01/29/12 1606 | + + + +---------+ + + | Performing | Address | City/State/Zipcode | Phone Number | | Organization | | | | + +---------+ + + | [place] | | | | | [facility] | | | | + +---------+ + + documented in this encounter Visit Diagnoses Not on filedocumented in this encounter"
--- OUTSIDE RECORDS SUMMARY | ~2020-07-07 | XMS | Encounter Summary ---
Demographics + + + | Address | [address] | | | [place] [address] | + + + | Home Phone [...] + + | Author | [facility] | + + + | Organization | [facility] [employer] [facility] | + + [...] Providers + +------+ + | Care Assistant District Attorney Name | Role | Phone | [...] Refill Request | | 2006 | | [place] | Paul Flores | | | | | Oculoplastics at | [address] [place], [place] | | | | | [facility] [address] | [address] | | | | | [address] | | | | | | Eye [place] | | | | | | [facility], [address] [place] [address] | | | | | | [place] [address] | | | | | | [phone] | | | +--------+ + + + [...]
--- OUTSIDE RECORDS SUMMARY | ~2020-07-07 | XMS | Encounter Summary ---
Demographics + + + | Address | [address] | | | [place] [address] | + + + | Home Phone [...] + | Author | [facility] [facility] | + + + | Organization | [facility] [employer] [facility] [...] Team Providers + +------+ + | Care Capacitor Pack Press Operator Name | Role | Phone [...] MD | | | 2010 | | [facility] | [address] | | | | | leon at [facility] [address] | [place], [place] | | | | | [address] [facility] | [address] | | | | | Health and Healing, | [phone] | | | | | | | | | | | Floor [place], [place] | | | | | | [address] | | | | | | [phone] | | | +--------+ + + + [...]
--- OUTSIDE RECORDS SUMMARY | ~2020-07-07 | XMS | Encounter Summary ---
Demographics + + + | Address | [address] | | | [place] [address] | + + + | Home Phone [...] + | Author | [facility] [employer] [facility] | + + + | Organization | [facility] [employer] [facility] [...] Team Providers + +------+ + | Care C2 Tactical Analysis Technician Name | Role | Phone | [...] Cerebri | | 2006 | Visit | [place] | | | | | | Photography at | | | | | | [address] | | | | | | [address] | | | | | | Eye [place], [address]th | | | | | | floor [place], [place] | | | | | | [address] | | | +--------+---------+ + + + [...] PM Mattpilar Au was seen in the [facility]Ultrasound Department today, 11/30/2006, for ultrasound OU [...]
--- OUTSIDE RECORDS SUMMARY | ~2020-07-07 | XMS | Encounter Summary ---
Demographics + + + | Address | [address] | | | [place] [address] | + + + | Home Phone [...] + + | Author | [facility] [place] [facility] | + + + | Organization | [facility] [facility] [place] [facility] | + + + | Address | Unknown | + + + | Phone | Unavailable | + + + Support + + +---------+ + | Name | Relationship | Address | Phone | + + +---------+ + | Ruby Au | ECON | Unknown | | + + +---------+ + Care Team Providers + +------+ + | Care Cold Type Artist Name | Role | Phone | [...] 05/09/ | Telephone | Neurosurgery at | Sma Pedroza MD | Letter From | | 2007 | | [facility] | [address] | Specialist | | | | and Healing [address] | [place], [place] | | | | | [address] | [address] | | | | | Health and Healing, | [phone] | | | | | | | | | | | Floor [place], [place] | | | | | | [address] | | | | | | [phone] | | | +--------+ + + + [...]
--- OUTSIDE RECORDS SUMMARY | ~2020-07-07 | XMS | Encounter Summary ---
Demographics + + + | Address | [address] | | | [place] [address] | + + + | Home Phone | | + + + | Preferred Language | Unknown | + + + | Marital Status | | + + + | Mormonism Affiliation | NON | + + + | Race | or | + + + | Ethnic Group | Not or | + + + Author + + + | Author | [facility] | + + + | Organization | [facility] [employer] [facility] | + + [...] Providers + +------+ + | Care Web Administrator Name | Role | Phone | + +------+ + | Pedro Luis Sams MD | PCP | | + +------+ + Encounter Details +--------+ + + + + | Date | Type | Department | Care Team | Description | +--------+ + + + + | 02/19/ | Telephone | Neurosurgery at | Sam Pderoza MD | | | 2012 | | [facility] [address] | [address] | | | | | Ave [facility] | [place], [place] | | | | | Health and Healing, | [address] | | | | | Building [address] | [phone] | | | | | floor [place], [place] | | | | | | [address] | | | | | | [phone] | | | +--------+ + + + [...]
--- OUTSIDE RECORDS SUMMARY | ~2020-07-07 | XMS | Encounter Summary ---
Demographics + + + | Address | [address] | | | [place] [address] | + + + | Home Phone [...] + | Organization | [facility] [...] Providers + +------+ + | Care Child Health Associate Name | Role | Phone | + +------+ + PCP | Unavailable | + +------+ + Encounter Details +--------+ + + + + | Date | Type | Department | Care Team | Description | +--------+ + + + + | 10/14/ | Hospital | [facility] | | | | 1991 | Encounter | [facility] | | | | | | [facility] [address] | | | | | | [place], | | | | | | [place] [address] | | | | | | [phone] | | | +--------+ + + + [...]
--- OUTSIDE RECORDS SUMMARY | ~2020-07-07 | XMS | Encounter Summary ---
Demographics + + + | Address | [address] | | | [place] [address] | + + + | Home Phone [...] + + | Author | [facility] | + + + | Organization | [facility] [...] Team Providers + +------+ + | Care Bad Cloth Checker Name | Role | Phone | [...] Refill Request | | 2006 | | [place] | Paul Flores | | | | | Oculoplastics at | Rd [place], [place] | | | | | [facility] [address] | [address] | | | | | [address] | | | | | | [facility] [place] | | | | | | [facility], [address] [place] [address] | | | | | | [place] [address] | | | | | | [phone] | | | +--------+ + + + [...]
--- OUTSIDE RECORDS SUMMARY | ~2020-07-07 | XMS | Encounter Summary ---
Demographics + + + | Address | [address] | | | [place] [address] | + + + | Home Phone [...] | Author | [facility] | + + + | Organization | [facility] [employer] [facility] [...] Providers + +------+ + | Care Non Destructive Tester Name | Role | Phone | + +------+ + | Brendne Benavides MD | PCP | | + [...] Cerebri | | 2006 | Visit | [facility] | Bud Alexander MD [address] | (Primary Dx) | | | | Maicol Luckey [address] | [place] | | | | | [address] | [place], [place] | | | | | Eye [place], [facility] | [address] | | | | | [place], [place] | [phone] | | | | | [address] | [...]
--- OUTSIDE RECORDS SUMMARY | ~2020-07-07 | XMS | Encounter Summary ---
Demographics + + + | Address | [address] | | | [place] [address] | + + + | Home Phone [...] Organization | [facility] | | | and [place] [...] Team Providers + +------+ + | Care Butadiene Converter Helper Name | Role | Phone | + +------+ + PCP | Unavailable | + +------+ + Encounter Details +--------+ + + + + | Date | Type | Department | Care Team | Description | +--------+ + + + + | 05/26/ | Hospital | [facility] | Alexa Bower DO | Infection of lumbar | | 2017 - | Encounter | [facility] [address] | [address] | spine (HCC); Type 2 | | | [address] | [place] [address] | diabetes mellitus | | 05/27/ | | [place], [place] | [phone] | without | | 2017 | | [address] | | complication, | | | | [phone] | | unspecified long | | | | | | term insulin use | | | | | | status ([facility]); | | | | | | History of drug | | | | | | abuse ([facility]); BMI | | | | | | 40.0-44.9, adult | | | | | | ([facility]); Back pain, | | | | [...] Service: Hospitalist Author Type: Physician Filed: 07/20/17 1549 Date of Service: 05/27/171842 Status: Signed Digital Marketing Coordinator: Reynold Garcia MD (Physician) I was informed [...] (none) Author Type: Registered Nurse Filed: 05/27/17 414 Date of Service: 05/27/171842 Status: Signed Digital Marketing Coordinator: Mesha Brown RN (Registered Nurse) Pt anxious, [...] Date of Service: 05/27/17 1303 Status: Signed Digital Marketing Coordinator: Mesha Brown RN (Registered Nurse) Went to pt room to put on bloodless medicine band and patient not in room/on floor. Mesha Brown RN 05/27/2017 1:03 PM onver ludwin Transaction, Provider Unknown - 05/27/2017 10:45 AM PDT Case Management by Da Goode RN at 05/27/17 1045 Author: Da Goode RN Service: (none) Author Type: Registered Nurse Filed: 05/27/17 1055 Date of Service: 05/27/17 1045 Status: Signed Digital Marketing Coordinator: Da Goode RN (Registered Nurse) 05/27/17 1042 [...] Oriented Prior functional status independant Power of Restorative Rehab Aide No Anticipated Discharge Plan Post Acute Care Needs None at this time Resources Financial concerns No Transportation issues No ( will transport) Patient/Family concerns No Prescription Plan Yes Name of Pharmacy [facility] in [place] [facility] phone number [phone] Previous home health equipment No Vascular access device No Ostomy/Drains/Appliances No Anticipated Disposition Facility Type Home Met with patient at bedside. Annabella is a 41 year old female with a history of anxiety/depre sssion, HTN, COPD, DM type 2, and IV drug use. She lives in [place] with her daughter 2 6, and 14 year old twins. Her is currently getting a new house ready for them to mov e into and is active in their lives. Annabella went to [facility] for pelvic pain and spotting but left AMA while waiting for MR I results because she couldn't smoke. The hospital called her and recommended her to go to [facility] based on the MRI results. Patient is independent in all ADL's. Because of the IV drug use, sending her home with an I V line is not recommended is she needs outpatient IV abx. Patient's PCP is: Virginia Reddy NP [facility] [employer] Coverage concerns:no Medication coverage/concerns: no Community resources utilized / needed: TBD Assistance in transportation: not at this time Identification of any specific education / training: TBD Barriers to Discharge / Alternative housing needed: not at this time Anticipated DCP: Home DA GOODE RN Case Management [phone] Andre Lay MD - 05/27/2017 9:46 AM PDT Progress Notes by Andre Alonso MD-R1 at 05/27/17 0946 Author: Andre Alonso MD-R1 Service: Hospitalist Author Type: Resident-Y1 Filed: 05/27/17 190 Date of Service: 05/27/17945 Status: Attested Digital Marketing Coordinator: Andre Alonso MD-R1 (Resident-Y1) Cosigner: Reynold Garcia [...] hospitalization due to abuse p otential and tank terminal gauger side effects. I anticipate that pt may not be happy during this hospi yuridia stay for this reason. I recommend risk management to see pt proactively. 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 Located Within [facility] Service: Hospitalist Progress Note Hospital Day: LOS: 0 days Post-Op Day: * No surgery found * SUBJECTIVE Patient Summary: the patient is a 41-year-old female with significant past medical h istory of type II diabetes, hypertension, gastroesophageal reflux disease, depression, IV dr hawa goldsmith who is a transfer from [facility] for further evaluation. Events Overnight: The patient [...] IV drug abuse who was transferred from [facility] in [place], [place] for further evaluation of suspicious lumbar [...] 05/27/17635 Date of Service: 05/27/17633 Status: Signed Digital Marketing Coordinator: Cathy Garcia RN (Registered Nurse) Contacted [facility]. Will fax over current microbiology GC test along with most current wound culture results. onver ludwin Transaction, Provider Unknown - 05/27/2017 5:15 AM PDT Progress Notes by Remy Trinidad RPH at 05/27/17514 Author: Remy Trinidad RPH Service: Pharmacy Author Type: Pharmacist Filed: 05/27/17514 Date of Service: 05/27/17514 Status: Signed Digital Marketing Coordinator: Remy Trinidad RPH (Pharmacist) Note ccl 125.9ml/min meds reviewed Pharmacy will follow rdc 0515 docume nted in this encounter H&P Notes Tom Rae MD - 05/27/2017 2:41 AM PDT H&P by BERTRAM Boyer at 05/27/17240 Author: BERTRAM Boyer Service: Hospitalist Author Type: Resident-Y1 Filed: 05/27/17621 Date of Service: 05/27/17240 Status: Attested Addendum Digital Marketing Coordinator: BERTRAM Boyer (Resident-Y1) Related Notes: Original Note by BERTRAM Boyer (Resident-Y1) filed at 05/27/17513 Cosigner: Alexa Bower DO at 06/21/17621 Attestation signed by Alexa Bower DO at 06/21/17621 (Updated) Chief complaint: Back Pain "I had an MRI and they told me there's fluid on my spine" Abdominal Pain Vaginal Bleeding Referral "the infectious disease doctor from [place] told me to come here to be admitted" Reason for admission: Possible paraspinal abscess Patient seen and evaluated independently. Patient denies saddle anesthesia. No suprapubic d istention or tenderness noted. Agree with above assessment, will recommend closely monitoring this patient for respiratory distress and use of narcotics for pain. Located Within [facility] Service: Hospitalist Admission History & [...] in her spine. She was seen at [facility] in [place] yesterday where she was being evaluated for [...] P ain improved with medications. Workup at [facility] revealed elevated CRP of 7.7, CBC and [...] of the right facet joint of L4-L5. [place] ED physician spoke with Dr. Triston alcantara (ID) who recommended radiology guided sampling of fluid by IR as well as blood cultures . He called patient to advise her to come to [facility] for further evaluation. Patient uses IV he roin, last use was yesterday due to the pain. She states she is unsure if the needles she us es are clean. In the [facility] ED, patient found to be afebrile with [...] back pain MRI lumbar spine performed at [facility] in [place] showed a subcentimeter rim-enhanci ng collection adjacent [...] drug abuse Currently using IV heroin. Consulted briefcase sewer for assistance with drug rehabilitation. Type 2 [...] follow up urinalysis - G/C Aptima from [facility] pending, hospitalist to request results DVT [...] 06/06/17921 Date of Service: 05/27/17617 Status: Addendum Digital Marketing Coordinator: Kate Rangel MD (Physician) Related Notes: Original Note by Kate Rangel MD (Physician) filed at 06/06/17920 Located Within [facility] Service: Infectious Disease Initial Consult Note Date of Admission: 05/26/2017 Reason for Consultation: Concern for spine infection in a patient with history of IV drug use Requesting Physician: Dr. Alexa Bower, Hospitalist History Obtained From: patient, chart review CHIEF COMPLAINT: Back pain; prior evaluation at [facility] with MRI concer ns for spine infection HISTORY OF PRESENT ILLNESS The patient is a 41 y.o. 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 She denies history of [...] On 05/25, the patient was seen at [facility] in [place] for low back pain which she linda cribed as severe and pelvic pain. She has been having vaginal spotting; she has an IUD and described having normal period the prior month. The vaginal spotting reportedly has stopped but she is interested in seeing a [facility]. The low back pain is persistent, described [...] had been (informally) reviewed by Neurosurgery and [facility] Radiology does not think there is [...] normal menstruation in the past month. Suggest OB-[facility] refe rral as an outpatient. Case had been discussed with ER physician at [facility] and with Dr. Garcia, her hospitalis t [...] 05/27/17313 Date of Service: 05/27/17313 Status: Signed Digital Marketing Coordinator: Kenya Zavala RN (Registered Nurse) Dr Bower at pt BS Kenya Zavala RN 05/27/17313 d Mcknight MD - 05/27/2017 12:26 AM PDT ED Provider Notes by Ed Toney DO at 05/27/17 002 Author: Ed Toney DO Service: Emergency Department Author Type: Physician Filed: 05/27/17 0443 Date of Service: 05/27/1725 Status: Signed Digital Marketing Coordinator: Ed Toney DO (Physician) Located Within [facility] Department of Emergency Medicine 12:26 [...] Bleeding Referral "the infectious disease doctor from [place] told me to come here to be [...] vaginal bleeding. Patient was seen in the [place] ED 3 days ago for vagina l bleeding, where she was found to have a "pocket of fluid in my spine." Patient became upse t, then left the facility AMA. She was then called today with her results, and advised to co me to [facility] ED for further evaluation/admission. The patient [...] and was advised to come to the [facility] ED for admission and treatment of possible abscess of spine. Dr. Rangel is aware of patient's case and is requesting three sets of blood cul tures and admission. Will order labs, and reevaluate. Will also obtain MRI report. 2:25 AM Reviewed patient's records which were sent from [facility] in [place]. 2:34 AM Discussed patient's case with Dr. [...] reviewed (Using the electronic record system of [facility], I car efully reviewed the records with regard to the past medical/surgical history, previous medic ations, and allergies). Nursing notes reviewed for chief complaint, medications, clinical presentation and vital si gns Laboratory Evaluation Results Procedure Component Value Ref Range Date/Time Drugs of Abuse Screen, [facility] Hospital and ED Only [[id number]] Order Status: Sent Specimen Information: Urine, Clean Catch Cardiac Panel [[id number]] (Abnormal) Collected: 05/27/17315 Order Status: Completed Updated: [...] Index UNABLE TO CALCULATE Sedimentation Rate (ESR) [[id number]] (Abnormal) Collected: 05/27/17315 Order Status: Completed Specimen Information: Blood Updated: 05/27/17357 ESR 23 (H) 0 - 20 mm/Hr Lactic acid [[id number]] Collected: 05/27/17316 Order Status: Completed Specimen Information: Blood Updated: 05/27/17348 LACTIC ACID 0.4 0.4 - 2.0 mmol/L C-Reactive Protein [[id number]] (Abnormal) Collected: 05/27/17315 Order Status: Completed Specimen Information: Blood Updated: 05/27/17347 CRP 1.7 (H) <0.5 mg/dL Blood culture, set 2 [[id number]] Collected: 05/27/17317 Order Status: Sent Specimen Information: Blood from Blood Updated: 05/27/17322 Blood Culture Set 1 [[id number]] Collected: 05/27/17314 Order Status: Sent Specimen Information: Blood from Blood Updated: 05/27/17320 Urinalysis (reflex to microscopic/reflex to culture) [[id number]] (Abnormal) Collected: 05/27/17199 Order Status: Completed Specimen Information: Urine, Clean Catch Updated: 05/27/17 23 COLOR UA RED CLARITY CLEAR Specific [place], UA 1.005 1.002 - 1.030 LEUKOCYTE ESTERASE [...] Type 2 diabetes mellitus without complication, unspecified tank terminal gauger insulin use status (H CC) History of [...] recognition system. The possibility of "sound alike" freelance programmer/app developer errors, addition and/or deletions may occur. If [...] 05/27/176 Date of Service: 05/27/173 Status: Signed Digital Marketing Coordinator: Kenya Zavala RN (Registered Nurse) "3 Days [...] 05/27/17805 Date of Service: 05/27/17805 Status: Signed Digital Marketing Coordinator: Mesha Brown RN (Registered Nurse) Problem: Pain [...] NEGATIVE Testing | | | performed at [facility] [place] [address];[place] [address] | | + + + + +---------+ [...] | | | Fingerstick | performed at [facility];[address] | | LAB | | | | Dawn Harman;[place], [place] | | | | | | [address] | | | | + + + [...] | | | Fingerstick | performed at [facility];[address] | | LAB | | | | Nereyda Hammer;[place], [place] | | | | | | [address] | | | | + + + [...] - 1.030 | EXTERNAL | | | [place], | | | LAB | | | [...] | | l squamous | performed at [facility], [address] | | LAB | | | epithelia, | Teresa Hammer, | | | | | UA | [place] [address] | | | | + + + [...] | | | Patient | performed at [facility];[address] | | LAB | | | | Nereyda Hammer;[place], [place] | | | | | | [address] | | | | + + + [...] | | | | | performed at [facility];[address] | | | | | | [facility];[place], [place] | | | | | | [address] | | | | + + + [...] | | | Basophils | performed at [facility], [address] | K/uL | LAB | | | | [address], | | | | | | [place] [address] | | | | + + + [...] EXTERNAL | | | | performed at [facility], [address] | | LAB | | | | Teresa Hammer, | | | | | | [place] [address] | | | | + + + [...] EXTERNAL | | | | performed at [facility], [address] | | LAB | | | | Teresa Hammer, | | | | | | [place] [address] | | | | + + + [...] + + | Hemoglobin | 5.7Comment: The Brazilian | 4.0 - 6.0 % | EXTERNAL [...] | | | | | performed at [facility], [address] | | | | | | Teresa Hammer, | | | | | | [place] [address] | | | | + + + [...] | | | | | | at [facility], [address] | | | | | | [facility], | | | | | | [place] [address] | | | | + + + [...] | | | Fingerstick | performed at [facility];[address] | | LAB | | | | Nereyda Hammer;[place] | | | | | | [address] | | | | + + + [...] | | | | | performed at [facility];[address] | | | | | | Nereyda Hammer;[place], [place] | | | | | | [address] | | | | + + + [...] EXTERNAL | | | | performed at [facility];[address] | mmol/L | LAB | | | | Nereyda Hammer;[place], [place] | | | | | | [address] | | | | + + + [...] at | | | | | | [facility];[address] [place] [address] | | | | | | vd;[place] [address] | | | | + + + [...] EXTERNAL | | | | performed at [facility];[address] | | LAB | | | | Nereyda Hammer;[place] | | | | | | [address] | | | | + + + [...] EXTERNAL | | | | performed at [facility];[address] | | LAB | | | | Nereyda Hammer;[place], [place] | | | | | | [address] | | | | + + + [...] | | | QUALITATIVE | performed at [facility] | | LAB | | | | [facility];[place] | | | | | | [address] | | | | + + + [...] - 1.030 | EXTERNAL | | | [place], | | | LAB | | | [...] | | | Cells | performed at [facility];[address] | | LAB | | | | Nereyda Hammer;[place] | | | | | | [address] | | | | + + + [...] Type 2 diabetes mellitus without complication, unspecified tank terminal gauger insulin use | | status | + + | History of drug abuse (HCC) Other, mixed, or unspecified nondependent drug abuse, in | | remission | + + | BMI 40.0-44.9, adult ([facility]) Body Mass Index 40.0-44.9, adult | + + | Back pain, unspecified back location, unspecified back pain laterality, unspecified | | chronicity | + + documented in this encounter
--- OUTSIDE RECORDS SUMMARY | ~2020-07-07 | XMS | Encounter Summary ---
Demographics + + + | Address | [address] | | | [place] [address] | + + + | Home Phone [...] Author | [facility] [employer] [facility] | + + + | Organization | [facility] [employer] [facility] [...] + +------+ + | Care Health And Wellness Director Name | Role | Phone | [...] 06/24/ | Emergency | [facility] Emergency | | | | 2010 | | Department [address] | | | | | | [address] | | | | | | [facility] | | | | | | [place], [place] | | | | | | [address] | | | | | | [phone] | | | +--------+ + + + [...]
--- OUTSIDE RECORDS SUMMARY | ~2020-07-07 | XMS | Encounter Summary ---
Demographics + + + | Address | [address] | | | [place] [address] | + + + | Home Phone [...] + + | Author | [facility] [facility] | + + + | Organization | [facility] [employer] [facility] | + [...] Team Providers + +------+ + | Care Yoke Presser Name | Role | Phone | [...] [phone] | | | | | [address]iran | [facility] | | | | | Health and Healing, | [address] [place], [place] | | | | | | [address] | | | | | floor [place], [place] | [phone] | | | | | [address] | | | | | | [phone] | | | +--------+ + + + [...]
--- OUTSIDE RECORDS SUMMARY | ~2020-07-07 | XMS | Encounter Summary ---
Demographics + + + | Address | [address] | | | [place] [address] | + + + | Home Phone [...] + | Author | [facility] [employer] [facility] | + + + | Organization | [facility] [employer] [facility] [...] Team Providers + +------+ + | Care Striper Name | Role | Phone | [...] | | [facility] | [place], [place] | | | | | Health and Healing, | [address] | | | | | Building [address] | [phone] | | | | | floor [place], [place] | | | | | | [address] | | | | | | [phone] | | | +--------+ + + + [...]
--- OUTSIDE RECORDS SUMMARY | ~2020-07-07 | XMS | Encounter Summary ---
Demographics + + + | Address | [address] | | | [place] [address] | + + + | Home Phone [...] + | Author | [facility] [employer] [facility] | + + + | Organization | [facility] [employer] [facility] | + + [...] + +------+ + | Care Professor Of Oceanography Name | Role | Phone | + +------+ + | Brenden Benavides MD | PCP | | + +------+ + Encounter Details +--------+ + + + + | Date | Type | Department | Care Team | Description | +--------+ + + + + | 02/22/ | Telephone | [facility] | Hay Hughes MD [address] | | | 2006 | | [facility] | [place] | | | | | Oculoplastics at | [place], [place] | | | | | [address] | [address] | | | | | [address] | [phone] | | | | | [facility] | | | | | | [address] | | | | | | [place] [address] | | | | | | [phone] | | | +--------+ + + + [...]
--- OUTSIDE RECORDS SUMMARY | ~2020-07-07 | XMS | Encounter Summary ---
Demographics + + + | Address | [address] | | | [place] [address] | + + + | Home Phone [...] Organization | [facility] | | [...] Team Providers + +------+ + | Care Catheter Builder Name | Role | Phone | + +------+ + PCP | Unavailable | + +------+ + Encounter Details +--------+ + + + + | Date | Type | Department | Care Team | Description | +--------+ + + + + | 07/14/ | Hospital | [facility] | | | | 1998 | Encounter | [facility] | | | | | | CENTER [address] | | | | | | [place] | | | | | | [address] | | | | | | [phone] | | | +--------+ + + + [...]
--- OUTSIDE RECORDS SUMMARY | ~2020-07-07 | XMS | Encounter Summary ---
Demographics + + + | Address | [address] | | | [place] [address] | + + + | Home Phone [...] | Author | [facility] [employer] [facility] | + + + | Organization | [facility] [employer] [facility] | + + + | Address | Unknown | + + + | Phone | Unavailable | + + + Support + + +---------+ + | Name | Relationship | Address | Phone | + + +---------+ + | Ruby Au | ECON | Unknown | | + + +---------+ + Care Team Providers + +------+ + | Care Bellhop Captain Name | Role | Phone | [...] Ave | | | | | [facility] | [place], [place] | | | | | Health and Healing, | [address] | | | | | [facility] | [phone] | | | | | floor [place], [place] | | | | | | [address] | | | | | | [phone] | | | +--------+ + + + [...]
--- OUTSIDE RECORDS SUMMARY | ~2020-07-07 | XMS | Encounter Summary ---
Demographics + + + | Address | [address] | | | [place] [address] | + + + | Home Phone [...] + + | Author | [facility] [employer] [facility] | + + + | Organization | [facility] [employer] [facility] | [...] Providers + +------+ + | Care Health Care Technician Name | Role | Phone | + +------+ + | Yeison Simms MD | PCP | Unavailable | + +------+ + Reason for Visit + + + | Reason | Comments | + + + | Refill Request | refill on [place] | + + + Encounter Details +--------+--------+ + + + | Date | Type | Department | Care Team | Description | +--------+--------+ + + + | 08/27/ | Refill | Neurosurgery at | Sam Pedroza MD | Refill Request | | 2007 | | [facility] [address] | [address] | (refill on [place]) | | | | Ave [place] for | [place], [place] | | | | | Health and Healing, | [address] | | | | | [facility] | [phone] | | | | | floor [place], [place] | | | | | | [address] | | | | | | [phone] | | | +--------+--------+ + + + [...]
--- OUTSIDE RECORDS SUMMARY | ~2020-07-07 | XMS | Encounter Summary ---
Demographics + + + | Address | [address] | | | [place] [address] | + + + | Home Phone [...] + | Author | [facility] [employer] [facility] | + + + | Organization | [facility] [employer] [facility] | [...] Team Providers + +------+ + | Care Mandrel Puller Name | Role | Phone | + [...] incision site) | | | | [facility] | [place], [place] | | | | | Health and Healing, | [address] | | | | | [facility] | [phone] | | | | | floor [place], [place] | | | | | | [address] | | | | | | [phone] | | | +--------+ + + + [...]
--- OUTSIDE RECORDS SUMMARY | ~2020-07-07 | XMS | Encounter Summary ---
Demographics + + + | Address | [address] | | | [place] [address] | + + + | Home Phone [...] + | Author | [facility] | + + + | Organization | [facility] [...] Team Providers + +------+ + | Care Spike Machine Heater Name | Role | Phone | + [...] Cerebri | | 2006 | Visit | [place] | | (Primary Dx) | | | | Neuro-Ophthalmology | | | | | | [address] [facility] | | | | | | Mailcode: PATTI | | | | | | [place] [address] | | | | | | [phone] | | | +--------+---------+ + + + [...] Brad Currie MD Neuro-Ophthalmology and Cerebrovascular Disease Block Engraver of Ophthalmology, Neurology, and Neurosurgery documented in [...] | + + +--------+ + + | OK VISUAL FIELD | Procedures | Routin | Pseudotumor | Ordered: 12/02/2006 | | EXAM,EXTENDED | | e | Cerebri | | + + +--------+ + + documented as of this encounter Visit Diagnoses + + | Diagnosis | + + | Pseudotumor cerebri - Primary Benign intracranial hypertension | + + documented in this encounter"
--- OUTSIDE RECORDS SUMMARY | ~2020-07-07 | XMS | Encounter Summary ---
Demographics + + + | Address | [address] | | | [place] [address] | + + + | Home Phone [...] Organization | [facility] | | | and [place] | + + + | Address | Unknown | + + + | Phone | Unavailable | + + + Support + + +---------+ + | Name | Relationship | Address | Phone | + + +---------+ + | Saad hCamorro | ECON | Unknown | | + + +---------+ + Care Team Providers + +------+ + | Care Veterinarian Laboratory Animal Care Name | Role | Phone | + +------+ + PCP | Unavailable | + +------+ + Encounter Details +--------+ + + + + | Date | Type | Department | Care Team | Description | +--------+ + + + + | 04/24/ | Hospital | [facility] | | | | 1991 | Encounter | [facility] EM[facility]Y | | | | | | CENTER [address] | | | | | | [place] | | | | | | [address] | | | | | | [phone] | | | +--------+ + + + [...]
--- OUTSIDE RECORDS SUMMARY | ~2020-07-07 | XMS | Encounter Summary ---
Demographics + + + | Address | [address] | | | [place] [address] | + + + | Home Phone [...] | Author | [facility] [facility] | + + + | Organization | [facility] [employer] [facility] | + [...] Providers + +------+ + | Care International Controller Name | Role | Phone | [...] Ave | | | | | Ave [address] for | [place], [place] | | | | | Health and Healing, | [address] | | | | | [facility] 1, 8th | [phone] | | | | | floor [place], [place] | | | | | | [address] | | | | | | [phone] | | | +--------+ + + + [...]
--- OUTSIDE RECORDS SUMMARY | ~2020-07-07 | XMS | Encounter Summary ---
Demographics + + + | Address | [address] | | | [place] [address] | + + + | Home Phone [...] + | Author | [facility] | + + + | Organization | [facility] [employer] [facility] | + [...] Team Providers + +------+ + | Care Brass Plater Name | Role | Phone | [...] | Prescription | | 2012 | | Garibaldi/Ophthalmol | MD Perry | | | | | leon at [facility] [address] | | | | | | [place] [facility] for | | | | | | Health and Healing, | | | | | | Building | | | | | | Floor | | | | | | [address] | | | | | | [phone] | | | +--------+ + + + [...]
--- OUTSIDE RECORDS SUMMARY | ~2020-07-07 | XMS | Encounter Summary ---
Demographics + + + | Address | [address] | | | [place] [address] | + + + | Home Phone [...] | Organization | [facility] | | | and [place] [...] Team Providers + +------+ + | Care Locator Name | Role | Phone | + +------+ + PCP | Unavailable | + +------+ + Encounter Details +--------+ + + + + | Date | Type | Department | Care Team | Description | +--------+ + + + + | 10/20/ | Hospital | [facility] | | | | 1999 | Encounter | [facility] EM[facility] | | | | | | CENTER [address] | | | | | | [place] | | | | | | [address] | | | | | | [phone] | | | +--------+ + + + [...]
--- OUTSIDE RECORDS SUMMARY | ~2020-07-07 | XMS | Encounter Summary ---
Demographics + + + | Address | [address] | | | [place] [...] Organization | [facility] | | | [...] Team Providers + +------+ + | Care Tag Writer Name | Role | Phone | + +------+ + PCP | Unavailable | + +------+ + Encounter Details +--------+ + + + + | Date | Type | Department | Care Team | Description | +--------+ + + + + | 03/29/ | Hospital | [facility] | | | | 2006 | Encounter | MED CTR XRAY [address] | | | | | | [address] | | | | | | [place] [address] | | | | | | [phone] | | | +--------+ + + + [...]
--- OUTSIDE RECORDS SUMMARY | ~2020-07-07 | XMS | Encounter Summary ---
Demographics + + + | Address | [address] | | | [place] [address] | + + + | Home Phone [...] | Author | [facility] [employer] [facility] | + + + | Organization | [facility] [employer] [facility] | [...] Providers + +------+ + | Care Head Animal Trainer Name | Role | Phone | [...] Ave | | | | | Ave | [place], [place] | | | | | Health and Healing, | [address] | | | | | [facility] | [phone] | | | | | floor [place], [place] | | | | | | [address] | | | | | | [phone] | | | +--------+ + + + [...]
--- OUTSIDE RECORDS SUMMARY | ~2020-07-07 | XMS | Encounter Summary ---
Demographics + + + | Address | [address] | | | [place] [address] | + + + | Home Phone [...] [facility] [employer] [facility] | + + + | Organization | [facility] [employer] [facility] | + [...] Providers + +------+ + | Care Field Appraiser Name | Role | Phone | [...] Cerebri | | 2006 | Visit | [facility] | Bud Alexander MD [address] | (Primary Dx) | | | | Maicol Mccall [address] | Cassi Hammer | | | | | [address] | [place], [place] | | | | | [facility] | [address] | | | | | [place], [place] | [phone] | | | | | [address] | [...]
--- OUTSIDE RECORDS SUMMARY | ~2020-07-07 | XMS | Encounter Summary ---
Demographics + + + | Address | [address] | | | [place] [address] | + + + | Home [...] | [facility] [...] Providers + +------+ + | Care Accounting Systems Manager Name | Role | Phone [...] left hand | [address] | | | | n | Weakness of | [address] | [place], | | | | | both hands | [place], | [place] [address] | | | | | [place] left | [place] [address] | Phone: | | | | | wrist Pain | Phone: | [phone] | | | | | of right | [phone] | Fax: | | | | | thumb | Fax: | [phone] | | | | | Trigger | [phone] | | | | | | finger of | | | | | | | right thumb | | | | | | | Procedures | | | | | | | MA MOTOR | | | | | | | &/SENS > | | | | | | | NRV CNDJ | | | | | | | PRECONF | | | | | | | ELTRODE LIMB | | | | | | | MA NEEDLE | | | | | | [...] | | | | | Trigger | [address] | [place] | | | | | finger of | [place], | [place] | | | | | right thumb | [place] [address] | [address] | | | | | | Phone: | Phone: | | | | | | [phone] | [phone] | | | | | | Fax: | Fax: | | | | | | [phone] | [phone] | +--------+ + + + + + [...] | | Rehabilitatio | tunnel | PA-C [address] | [address] | | | | n | syndrome on | | [place], | | | | | left | [place] | [place] [address] | | | | | | WAY | Phone: | | | | | | [place], | [phone] | | | | | | [place] [address] | Fax: | | | | | | Phone: | [phone] | | | | | | [phone] | | | | | | | Fax: | | | | | | | [phone] | | +--------+--------+ + + + + Encounter Details +--------+---------+ + + + | Date | Type | Department | Care Team | Description | +--------+---------+ + + + | 01/03/ | Office | [facility] [place] | Amanuel Jennings, | Numbness of left | | 2019 | Visit | PHYSIATRY [address] | MD [address] | hand (Primary Dx); | | | | [address] | [place] | Weakness of both | | | | [place] | [address] | hands; Mass of left | | | | [address] | | wrist; Pain of right | | | | [phone] | | thumb; Trigger | | | [...] encounter Patient Instructions Patient Instructions Adelaide Santa Ramp Boss - 01/03/2019 1:00 PM PSTContinue t o [...] Acute low back pain Antisocial personality disorder ([facility]) Anxiety disorder Asthma Benign essential hypertension Chronic back pain Chronic obstructive lung disease (HCC) Chronic posttraumatic stress disorder Depressive disorder Diabetes mellitus type 2 in obese (HCC) Gastroesophageal reflux disease Heroin dependence ([facility]) Hoarse Hypertensive disorder Insomnia with sleep apnea IV drug abuse ([facility]) Low back strain Numbness of left hand Obstructive sleep apnea of adult Opioid dependence on agonist therapy ([facility]) Other chronic pain Panic disorder without agoraphobia with severe panic attacks Polysubstance dependence ([facility]) Sedative, hypnotic or anxiolytic dependence, 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 4/5 hand family resource coordinator on the left Reflexes: 2+ normal [...] scribed by in my presence, Adelaide Santa, Ramp Boss and are both accurate and comp lete. [...]
--- OUTSIDE RECORDS SUMMARY | ~2020-07-07 | XMS | Encounter Summary ---
Demographics + + + | Address | [address] | | | [place] [address] | + + + | Home Phone [...] [facility] [employer] [facility] | + + + | Organization | [facility] [place] [employer] [facility] | + + + | Address | Unknown | + + + | Phone | Unavailable | + + + Support + + +---------+ + | Name | Relationship | Address | Phone | + + +---------+ + | Ruby Au | ECON | Unknown | | + + +---------+ + Care Team Providers + +------+ + | Care Engineer Exhauster Name | Role | Phone | + [...] Cerebri | | 2006 | Visit | [place] | | (Primary Dx) | | | | Neuro-Ophthalmology | | | | | | [address] [facility] | | | | | | Mailcode: PATTI | | | | | | [place] [address] | | | | | | [phone] | | | +--------+---------+ + + + [...] the medication that she SHOULD be h mary lou. Brad Currie MD Neuro-Ophthalmology and Cerebrovascular Disease Audio Specialist of Ophthalmology, Neurology, and Neurosurgery documented [...]
--- OUTSIDE RECORDS SUMMARY | ~2020-07-07 | XMS | Encounter Summary ---
Demographics + + + | Address | [address] | | | [place] [address] | + + + | Home Phone [...] + | Author | [facility] | + + + | Organization | [facility] [employer] [facility] | + + + | Address | Unknown | + + + | Phone | Unavailable | + + + Support + + +---------+ + | Name | Relationship | Address | Phone | + + +---------+ + | Ruby Au | ECON | Unknown | | + + +---------+ + Care Team Providers + +------+ + | Care Overlock Sewing Machine Operator Name | Role | [...] | | | | | | [address] [place], [place] | | | | | | [address] | | | | | | [phone] | | | +--------+ + + + [...]
--- OUTSIDE RECORDS SUMMARY | ~2020-07-07 | XMS | Encounter Summary ---
Demographics + + + | Address | [address] | | | [place] [address] | + + + | Home Phone [...] + | Author | [facility] [facility] | + + + | Organization | [facility] [employer] [facility] | + + [...] Providers + +------+ + | Care Paper Reeler Name | Role | Phone | + [...] Cerebri | | 2006 | Visit | [place] | | | | | | Photography at | | | | | | [address] | | | | | | [address] | | | | | | [facility] [place], 4th | | | | | | floor [place], [place] | | | | | | [address] | | | +--------+---------+ + + + [...] PM Mattpilar Au was seen in the [facility] [facility]/Ultrasound Department today, 11/30/2006, for ultrasound OU [...]
--- OUTSIDE RECORDS SUMMARY | ~2020-07-07 | XMS | Encounter Summary ---
Demographics + + + | Address | [address] | | | [place] [address] | + + + | Home Phone [...] Organization | [facility] | [...] Providers + +------+ + | Care Guide Escort Name | Role | Phone | + +------+ + PCP | Unavailable | + +------+ + Encounter Details +--------+ + + + + | Date | Type | Department | Care Team | Description | +--------+ + + + + | 10/22/ | Hospital | [facility] | | | | 1991 - | Encounter | [facility] | | | [facility] [address] | | | | 10/24/ | | [place], | | | | 1991 | | [place] [address] | | | | | | [phone] | | | +--------+ + + + [...]
--- OUTSIDE RECORDS SUMMARY | ~2020-07-07 | XMS | Encounter Summary ---
Demographics + + + | Address | [address] | | | [place] [address] | + + + | Home Phone [...] | Author | [facility] | + + + | Organization | [facility] [employer] [facility] | + + [...] Providers + +------+ + | Care Certified Diabetes Educator Name | Role | Phone | + [...] | | | | | | | [place] | | | | | | | [id number] | | | | | | | [facility] | | | | | | | [place], | | | | | | | [place] [address] | | | | | | | Phone: | | | | | | | [phone] | +--------+--------+ + + + + Encounter Details +--------+ + + + + | Date | Type | Department | Care Team | Description | +--------+ + + + + | 08/01/ | Hospital | [facility] [address] | Sam Pedroza MD | | | 2007 - | Encounter | [place] | [address] | | | | | [id number] [facility] | [place], [place] | | | 08/02/ | | HOSPITAL [place], | [address] | | | 2007 | | [place] [address] | [phone] | | | | | [phone] | | | +--------+ + + + [...] in 2 weeks, please call for appointment: [phone] Condition On Discharge: Vital Signs at discharge [...] in 2 weeks, please call for appointment: [phone] Condition On Discharge: Vital Signs at discharge [...] independently, has no ADL needs and [facility] Dr. Pedroza agreed that she would not need therapies. Spoke with RN who endorses that pt has been up independently last pm and this am. OT to sign off at this time. Yessenia Nowak, OTR/ L [address] Tomasz Caldera Md - 02/2008 11:08 AM [...] Performed At | + + + | [id number] | | | [id number] | | | [place] [id number] Date: | | | 08/01/2008 Attending Surgeon: | | | Sam Pedroza M.D. Box Spinner(s): | | | Tomasz Rice M.D. | [...] | tonsils and then gently incised. A [place] 4 was then easily fed | | [...] | | | Pooja Pedroza M.D. / [id number] / | | | [id number] / [id number] / | | + + + + + | Procedure Note | + + | Krystal Rushing, Tomasz - 08/01/2008 12:00 AM PDT [id number] | | [id number] [place] | | [id number] Date: 08/01/2008 Attending Surgeon: Sam | | Pooja Pedroza Box Spinner(s): Tomasz Rice M.D. | | Palomo Jansen [...] tonsils and | | thengently incised. A [place] 4 was then easily fed through it, [...] Sam Pedroza M.D. KG / | | [id number] / [id number] / [id number] / T: 08/02/2008 | |dripping from the [...] tonsils and then | |gently incised. A [place] 4 was then easily fed through it, [...] | | | |KG / HS | |[id number] / [id number] / [id number] / | | | | | | | | | | | | | | | | | | | | | + + TEACHING PHYSICIAN (08/01/2008 12:00 AM PDT) + + + | Narrative | Performed At | + + + | [id number] | | | [id number] | | | [place] [id number] | | | Date: 08/01/2008 Attending Surgeon: | | | Sam Pedroza M.D. Box Spinner(s): | | | Tomasz Rice M.D. | [...] | | | Pooja Pedroza / LANETTE [id number] / [id number] / [id number] / 57715 D: | | | 08/01/2008 | | + + + + + | Procedure Note | + + | Sam Pedroza MD - 08/01/2008 12:00 AM PDT [id number] | | [id number] [place] | | [id number] Date: 08/01/2008ttending Surgeon: Sam | | Pooja Pedroza Box Spinner(s): Tomasz Rice M.D. | | Palomo Jansen [...] | Bisi. Sam Pedroza M.D. AD / [id number] / [id number] / [id number] / [id number]: | | 08/01/2008T: 08/01/2008 | | | [...] | | | |AD / HS | |[id number] / [id number] / [id number] / 46387 | | | | | | | [...]
--- OUTSIDE RECORDS SUMMARY | ~2020-07-07 | XMS | Encounter Summary ---
Demographics + + + | Address | [address] | | | [place] [address] | + + + | Home Phone [...] + | Author | [facility] | + + + | Organization | [facility] [employer] [facility] | [...] Team Providers + +------+ + | Care Virtualization Consultant Name | Role | Phone | [...] | | | | Sky Maloney | [facility], | | | | | | [place], [place] | 10th Floor | | | | | | [address] | [place], [place] | | | | | | Phone: | [address] | | | | | | [phone] | Phone: | | | | | | Fax: | [phone] | | | | | | [phone] | Fax: | | | | | | | [phone] | +--------+--------+ + + + + Reason for Visit + + + | Reason | Comments | + + + | 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 | | | | | [facility] | [place], [place] | | | | | [place], [place] | [address] | | | | | [address] | [phone] | | | | | [phone] | | | | | | | [...] and follow up in 1 week at [facility]. Please follow up with your doctor. Rest, [...] + + + | [facility] | [address] | [place], [place] | | | ZACHARIAH GRIFFITH OF [facility] | [address] | [address] | | | TESTS | | | [...] | + + + + + | [facility] | [address] | [place] [address] | | | SERVICES, CORE | SKY [...] | | | | | CHRISTIANO TORRES ([id number]) | | | | | | on 03/14/2013 10:35:55 AM | | | | + + + + + + + + | Specimen | + + | | + + + + + | Narrative | Performed At | + + + | Please click | [facility]PT [facility] | | on view image for the detailed interpretation from [employer] results. | CARDIOLOGY | + + + + + + + + | Performing | Address | City/State/Zipcode | Phone Number | | Organization | | | | + + + + + | [facility] | [address] | [place], [place] | | | CARDIOLOGY | [address] | [address] | | + + + + + [...] [facility] | [address] | [place], [place] | | | ZACHARIAH GRIFFITH OF CARE | [facility] | [address] | | | TESTS | | | [...] [facility] | [address] | [place] [address] | | | SERVICES, CORE | PARK [...] | + + + + + | [facility] [facility] [employer] | [address] | [place] [address] | | | SERVICES, CORE | SKY [...] | | | LABORATORY | | | IVORIAN | | | SERVICES, | | | [...] [facility] | [address] | [place] [address] | | | SERVICES, CORE | PARK [...] | + + + + + | [facility] | [address] | [place] [address] | | | SERVICES, CORE | SKY [...] + | [place] - [place] - | [address] | [place] [address] | | | [place] | | | | + + + + + RAINBOW HOLD TUBE - RED TOP (03/13/2013 11:52 AM PDT) + + | Specimen | + + | Blood - Blood | + + + + + + + | Performing | Address | City/State/Zipcode | Phone Number | | Organization | | | | + + + + + | [facility] | [address] [facility] | [place] [address] | | | SERVICES, CORE | SKY [...]
--- OUTSIDE RECORDS SUMMARY | ~2020-07-07 | XMS | Encounter Summary ---
Demographics + + + | Address | [address] | | | [place] [address] | + + + | Home Phone [...] + | Author | [facility] | + + + | Organization | [facility] [employer] [facility] [...] Team Providers + +------+ + | Care Independent Freight Agent Name | Role | Phone | [...] Cerebri | | 2006 | Visit | [place] | [address] | (Primary Dx) | | | | Oculoplastics at | [place], [place] | | | | | [address] | [address] | | | | | [address] | [phone] | | | | | [facility] [place] | | | | | | [address] | | | | | | [place] [address] | | | | | | [phone] | | | +--------+---------+ + + + [...]
--- OUTSIDE RECORDS SUMMARY | ~2020-07-07 | XMS | Encounter Summary ---
Demographics + + + | Address | [address] | | | [place] [address] | + + + | Home Phone [...] [facility] [employer] [facility] | + + + | Organization | [facility] [employer] [facility] | [...] Team Providers + +------+ + | Care J2Ee Developer Name | Role | Phone | + +------+ + | Dennis Maddox | PCP | | + +------+ + Encounter Details +--------+ + + + + | Date | Type | Department | Care Team | Description | +--------+ + + + + | 03/15/ | Telephone | [facility] | Ronaldo Martin MD | | | 2012 | | [place]/Ophthalmol | [facility] [place] | | | | | ogjaneen at [facility] [address] | [address] [place] [address] | | | | | [facility] | [place] [address] | | | | | Health and Healing, | [phone] | | | | | [facility] | | | | | | Floor [place], [place] | | | | | | [address] | | | | | | [phone] | | | +--------+ + + + [...]
--- OUTSIDE RECORDS SUMMARY | ~2020-07-07 | XMS | Encounter Summary ---
Demographics + + + | Address | [address] | | | [place] [address] | + + + | Home Phone [...] + + | Author | [facility] | + + + | Organization | [facility] [employer] [facility] | + [...] Team Providers + +------+ + | Care Proposal Consultant Name | Role | Phone | [...] [address] | [address] | | | | | Ave [facility] | [place], [place] | | | | | Health and Healing, | [address] | | | | | [facility] | [phone] | | | | | floor [place], [place] | | | | | | [address] | | | | | | [phone] | | | +--------+ + + + [...]
--- OUTSIDE RECORDS SUMMARY | ~2020-07-07 | XMS | Encounter Summary ---
Demographics + + + | Address | [address] | | | [place] [address] | + + + | Home Phone [...] | Author | [facility] [employer] [facility] | + + + | Organization | [facility] [employer] [facility] | [...] Team Providers + +------+ + | Care Plater Apprentice Name | Role | Phone | [...] | | | | | hypertension | [place], [place] | [place], [place] | | | | | Procedures | [address] | [address] | | | | | REQUEST TO | Phone: | Phone: | | | | | SURGERY | [phone] | [phone] | | | | | [facility] | Fax: | Fax: | | | | | [place] INSTALL | [phone] | [phone] | | | | | SPINAL | [...] Ave | | | | | [facility] | [facility] [place] | | | | | Health and Healing, | [address] | | | | | [facility] , 8th | [phone] | | | | | floor [place], [place] | | | | | | [address] | | | | | | [phone] | | | +--------+ + + + [...]
--- OUTSIDE RECORDS SUMMARY | ~2020-07-07 | XMS | Encounter Summary ---
Demographics + + + | Address | [address] | | | [place] [address] | + + + | Home Phone [...] + | Author | [facility] | + + + | Organization | [facility] [employer] [facility] | + [...] Team Providers + +------+ + | Care Support Technician Name | Role | Phone | [...] /06/ | Telephone | [facility] | [place], | Headache | | 2015 | | [place] | MD [address] | | | | | Neuro-Ophthalmology | [facility] [place] | | | | | at [facility] [address] | [address] | | | | | Ave [facility] | [phone] | | | | | Heatlh and Healing, | | | | | | Building | | | | | | Floor [place], [place] | | | | | | [address] | | | | | | [phone] | | | +--------+ + + + [...]
--- OUTSIDE RECORDS SUMMARY | ~2020-07-07 | XMS | Encounter Summary ---
Demographics + + + | Address | [address] | | | [place] [address] | + + + | Home Phone | | + + + | Preferred Language | Unknown | + + + | Marital Status | | + + + | Scientology Affiliation | NON | + + + | Race | or | + + + | Ethnic Group | Not or | + + + Author + + + | Author | [facility] | + + + | Organization | [facility] [facility] | + [...] Providers + +------+ + | Care Home Performance Laborer Name | Role | Phone | [...] Cerebri | | 2006 | Visit | Busy | | (Primary Dx) | | | | Neuro-Ophthalmology | | | | | | [address] [facility] | | | | | | Mailcode: PATTI | | | | | | [place] [address] | | | | | | [phone] | | | +--------+---------+ + + + [...] Brad Currie MD Neuro-Ophthalmology and Cerebrovascular Disease Blade Grader Operator of Ophthalmology, Neurology, and Neurosurgery documented [...]
--- OUTSIDE RECORDS SUMMARY | ~2020-07-07 | XMS | Encounter Summary ---
Demographics + + + | Address | [address] | | | [place] [address] | + + + | Home Phone [...] | Author | [facility] [employer] [facility] | + + + | Organization | [facility] [employer]elligent [employer] [facility] [...] Providers + +------+ + | Care Athletic Events Scorer Name | Role | Phone | [...] | | [facility] | [place], [place] | | | | | Health and Healing, | [address] | | | | | Building 1, 8th | [phone] | | | | | floor [place], [place] | | | | | | [address] | | | | | | [phone] | | | +--------+ + + + [...]
--- OUTSIDE RECORDS SUMMARY | ~2020-07-07 | XMS | Encounter Summary ---
Demographics + + + | Address | [address] | | | [place] [address] | + + + | Home Phone [...] + | Author | [facility] | + + + | Organization | [facility] [facility] | + [...] Team Providers + +------+ + | Care Flow Manager Name | Role | Phone | [...] + | 06/24/ | Emergency | [facility] Emergency | | | | 2010 | | Department [address] | | | | | | [address] | | | | | | [facility] | | | | | | [place], [place] | | | | | | [address] | | | | | | [phone] | | | +--------+ + + + [...]
--- OUTSIDE RECORDS SUMMARY | ~2020-07-07 | XMS | Encounter Summary ---
Demographics + + + | Address | [address] | | | [place] [address] | + + + | Home Phone [...] | Organization | [facility] | | [...] Team Providers + +------+ + | Care Athlete Manager Name | Role | Phone | + +------+ + PCP | Unavailable | + +------+ + Encounter Details +--------+ + + + + | Date | Type | Department | Care Team | Description | +--------+ + + + + | 07/10/ | Emergency | [facility] | Perry Flores | Headache; Benign | | 2012 | | MEDICAL CENTER | [place] [address] | intracranial | | | | EMERGENCY CENTER | [address] | hypertension; Back | | | | [address] | [place] [address] | pain | | | | [place], [place] | [phone] | | | | | [address] | | | | | | [phone] | | | +--------+ + + + [...] 07/10/132043 Date of Service: 07/10/132043 Status: Signed Retail Sales Lead: Magdiel Jansen RN (Registered Nurse) Pt stated [...] 07/10/132041 Date of Service: 07/10/132024 Status: Signed Retail Sales Lead: Magdiel Jansen RN (Registered Nurse) Returned from radiology. Tolerated procedure well. Magdiel Jansen RN 07/10/132041 onver ludwin Transaction, Provider Unknown - 07/10/2013 8:02 PM PDT ED Notes by Magdiel Jansen RN at 07/10/132001 Author: Magdiel Jansen RN Service: (none) Author Type: Registered Nurse Filed: 07/10/132002 Date of Service: 07/10/132001 Status: Signed Retail Sales Lead: Magdiel Jansen RN (Registered Nurse) Pt transported to radiology via gurney with tech. Magdiel Jansen RN 07/10/132002 erry Negro MD - 07/10/2013 7:29 PM PDTFormatting of this note might be different from kaitlyn beck original. ED Provider Notes by Anoop Flores MD at 07/10/131928 Author: Anoop Flores MD Service: (none) Author Type: Physician Filed: 07/10/132239 Date of Service: 07/10/131928 Status: Signed Retail Sales Lead: Anoop Flores MD (Physician) [facility] Department of Emergency Medicine History of [...] shown by XR with her Dr in [place] earlier in the year. Reports grad ual [...] et. Care prior to arrival consisted of [place] twice daily, with no relief. Patient cannot catarina e NSAIDS. Patient[place] [address] [place] in [place], [place], for Hydrocephalus. Patient stat es she had no problems with it until this year. Patient has been having headaches all year. Patient lives in [place], spoke with the Neurosurgeon business education instructor, and was [facility]. PCP: [facility] Past Medical History Diagnosis Date [...] Value Ref Range Date/Time Comprehensive metabolic panel [[id number]] (Abnormal) Collected:07/10/131946 Order Status:Completed Updated:07/10/132010 Specimen Information:Blood [...] EGFR >60 >60 mL/min/1.73m2 CBC with differential [[id number]] (Abnormal) Collected:07/10/131946 Order Status:Completed Updated:07/10/131953 Specimen Information:Blood [...] this week [address] [facility] [address] [facility] Follow up next week [address] [place] [address] [facility] Emergency Department If symptoms worsen [address] [facility] [address] Discharge Medications: New Prescriptions No new medications [...] 07/10/131938 Date of Service: 07/10/131814 Status: Signed Retail Sales Lead: Magdiel Jansen RN (Registered Nurse) Bed side [...] | + + + | ANNABELLA Waters Social Media Simplified XR LUMBAR SPINE LIMITED 2-3 VIEW HISTORY: [...] | + + + | ANNABELLA Jt [facility] CT HEAD WO CONTRAST HISTORY: 37 years. [...]
--- OUTSIDE RECORDS SUMMARY | ~2020-07-07 | XMS | Encounter Summary ---
Demographics + + + | Address | [address] | | | [place] [address] | + + + | Home Phone [...] + + | Author | [facility] | + + + | Organization | [facility] [...] Providers + +------+ + | Care Cold Mill Operator Name | Role | Phone [...] Erroneous Encounter | | 2007 | | [facility] | [place] [facility] | - Disregard | | | | and Healing [address] | Neurosurgery [address] | | | | | [address] Center for | [address] | | | | | Health and Healing, | [place], [place] | | | | | Building | [address] | | | | | Floor [place], [place] | | | | | | [address] | | | | | | [phone] | | | +--------+--------+ + + + [...]
--- OUTSIDE RECORDS SUMMARY | ~2020-07-07 | XMS | Encounter Summary ---
Demographics + + + | Address | [address] | | | [place] [address] | + + + | Home Phone [...] + | Author | [facility] [employer] [facility] | + + + | Organization | [facility] | + [...] Providers + +------+ + | Care Media Marketing Director Name | Role | [...] | | | Ave Center for | [place], [place] | | | | | Health and Healing, | [address] | | | | | Building , | [phone] | | | | | floor [place], [place] | | | | | | [address] | | | | | | [phone] | | | +--------+ + + + [...]
--- OUTSIDE RECORDS SUMMARY | ~2020-07-07 | XMS | Encounter Summary ---
Demographics + + + | Address | [address] | | | [place] [address] | + + + | Home Phone [...] + | Author | [facility] | + + + | Organization | [facility] [facility] | + + [...] Providers + +------+ + | Care Brush Cutter Name | Role | Phone | [...] | | | | | Physician's | [place], [place] | | | | | Fidelia, [facility] floor | [address] | | | | | [place], [place] | [phone] | | | | | [address] | | | | | | [phone] | | | +--------+ + + + [...]
--- OUTSIDE RECORDS SUMMARY | ~2020-07-07 | XMS | Encounter Summary ---
Demographics + + + | Address | [address] | | | [place] [address] | + + + | Home Phone [...] Organization | [facility] | | | and [...] Providers + +------+ + | Care Applications Tester Name | Role | Phone | + +------+ + PCP | Unavailable | + +------+ + Encounter Details +--------+ + + + + | Date | Type | Department | Care Team | Description | +--------+ + + + + | 05/18/ | Hospital | [facility] | | | | 1991 | Encounter | MED CTR W[facility]ENS | | | | | | HEALTH SV [address] | | | | | | [place], | | | | | | [place] [address] | | | | | | [phone] | | | +--------+ + + + [...]
--- OUTSIDE RECORDS SUMMARY | ~2020-07-07 | XMS | Encounter Summary ---
Demographics + + + | Address | [address] | | | [place] [address] | + + + | Home Phone [...] Author | [facility] | + + + | Organization | [facility] Breker Verification Systems [facility] | + + [...] Providers + +------+ + | Care Plant Maintenance Engineer Name | Role | Phone | [...] [address] | | | | | | [address] | Ave | | | | | | [address] | [place], [place] | | | | | | [place], | [address] | | | | | | [place] [address] | Phone: | | | | | | Phone: | [phone] | | | | | | [phone] | Fax: | | | | | | Fax: | [phone] | | | | | | [phone] | | +--------+ + + + + [...] | | | Ave Center for | [place], [place] | | | | | Health and Healing, | [address] | | | | | | [phone] | | | | | floor [place], [place] | | | | | | [address] | | | | | | [phone] | | | +--------+---------+ + + + [...] soon. I spent more than 15 minutes vhqy-is-wymc with the patient of which greater than 50% was sp ent counseling the patient regarding the shunt removal, indications and venous sinus stent a ngioplasty. Since her shunt is brent effective now she will need narcotics for headache and he r PCP should manage that. CASIMIRO PAYTNO MD NEUROSURGERY [address] [facility] Chris Mailcode: Ch8n [facility], [address] [place] [address] documented in this encou nter Plan of Treatment Not on filedocumented as of this encounter Visit Diagnoses + + | Diagnosis | + + | Pseudotumor cerebri - Primary Benign intracranial hypertension | + + documented in this encounter
--- OUTSIDE RECORDS SUMMARY | ~2020-07-07 | XMS | Encounter Summary ---
Demographics + + + | Address | [address] | | | [place] [address] | + + + | Home Phone [...] + + + | Organization | and [facility] | [...] Providers + +------+ + | Care Awning Maker Name | Role | Phone | + +------+ + PCP | Unavailable | + +------+ + Encounter Details +--------+ + + + + | Date | Type | Department | Care Team | Description | +--------+ + + + + | 08/10/ | Hospital | [facility] | | | | 1990 | Encounter | MED CTR EMERGENCY | | | | | | CENTER [address] | | | | | | [place] | | | | | | [address] | | | | | | [phone] | | | +--------+ + + + [...]
--- OUTSIDE RECORDS SUMMARY | ~2020-07-07 | XMS | Encounter Summary ---
Demographics + + + | Address | [address] | | | [place] [address] | + + + | Home Phone [...] Author | [facility] | + + + | Organization | [facility] [employer] [facility] | + + [...] Providers + +------+ + | Care Clinical Geneticist Name | Role | Phone | [...] Other | | 2005 | | D[facility] | [address] | | | | | [address] Mailcode:OP14B | [place], [place] | | | | | [facility] | [address] | | | | | [place], [place] | | | | | | [address] | | | | | | [phone] | | | +--------+ + + + [...]
--- OUTSIDE RECORDS SUMMARY | ~2020-07-07 | XMS | Encounter Summary ---
Demographics + + + | Address | [address] | | | [place] [address] | + + + | Home Phone [...] | [facility] [employer] [facility] | + + + | Organization | [facility] [employer]or[employer] [facility] [...] Providers + +------+ + | Care Manager Heavy Duty Name | Role | Phone | + [...] | | [place] Mailcode:OP14B | Sandra Mal[place], | | | | | [facility] | [place] [address] | | | | | [place], [place] | | | | | | [address] | | | | | | [phone] | | | +--------+ + + + [...]
--- OUTSIDE RECORDS SUMMARY | ~2020-07-07 | XMS | Encounter Summary ---
Demographics + + + | Address | [address] | | | [place] [address] | + + + | Home Phone [...] | Author | [facility] | + + + | Organization | [facility] [employer] [facility] | + [...] + +------+ + | Care Head Of Music Name | Role | Phone | + [...] Cerebri | | 2006 | Visit | [facility] | Cassi Hammer | (Primary Dx) | | | | Oculoplastics at | [place], [place] | | | | | [address] | [address] | | | | | [address] | [phone] | | | | | Eye [facility] | | | | | | [address] | | | | | | [place] [address] | | | | | | [phone] | | | +--------+---------+ + + + [...]
--- OUTSIDE RECORDS SUMMARY | ~2020-07-07 | XMS | Encounter Summary ---
Demographics + + + | Address | [address] | | | [place] [address] | + + + | Home Phone [...] + | Organization | [facility] | [...] + +------+ + | Care Sheet Metal Pattern Cutter Name | Role | Phone | + +------+ + PCP | Unavailable | + +------+ + Encounter Details +--------+ + + + + | Date | Type | Department | Care Team | Description | +--------+ + + + + | 10/21/ | Hospital | [facility] | | | | 1991 | Encounter | MED [facility] | | | | | | HEALTH SV [address] | | | | | | [place], | | | | | | [place] [address] | | | | | | [phone] | | | +--------+ + + + [...]
--- OUTSIDE RECORDS SUMMARY | ~2020-07-07 | XMS | Encounter Summary ---
Demographics + + + | Address | [address] | | | [place] [address] | + + + | Home Phone [...] | [facility] | | | and [place] | + + + | Organization | [facility] | | [...] Team Providers + +------+ + | Care Circuit Breaker Supervisor Name | Role | Phone | + +------+ + PCP | Unavailable | + +------+ + Encounter Details +--------+ + + + + | Date | Type | Department | Care Team | Description | +--------+ + + + + | 05/15/ | Hospital | [facility] | | | | 1991 | Encounter | MED CTR XRAY [address] | | | | | | [address] | | | | | | [place] [address] | | | | | | [phone] | | | +--------+ + + + [...]
--- OUTSIDE RECORDS SUMMARY | ~2020-07-07 | XMS | Encounter Summary ---
Demographics + + + | Address | [address] | | | [place] [address] | + + + | Home Phone [...] + | Author | [facility] [employer] [facility] | + + + | Organization | [facility] [employer] [facility] | + + + | Address | Unknown | + + + | Phone | Unavailable | + + + Support + + +---------+ + | Name | Relationship | Address | Phone | + + +---------+ + | Ruby Au | ECON | Unknown | | + + +---------+ + Care Team Providers + +------+ + | Care Asbestos Shingle Inspector Name | Role | Phone | [...] | | Ophthalmology | | Non-[facility] | [place], | | | | | | Epic Dept | Graciela Guardado MD | | | | | | | [address] | | | | | | | Ave | | | | | | | [place], [place] | | | | | | | [address] | | | | | | | Phone: | | | | | | | [phone] | | | | | | | Fax: | | | | | | | [phone] | +--------+--------+ + + + + Encounter Details +--------+---------+ + + + | Date | Type | Department | Care Team | Description | +--------+---------+ + + + | 03/26/ | Office | [facility] | Mo Hood | Pseudotumor cerebri | | 2012 | Visit | [place]/Ophthalmol Leif Amador MD | (Primary Dx); | | | | ogy at [facility] [address] | | Depression; Type II | | | | [address] [facility] for | | or unspecified type | | | | Health and Healing, | | diabetes mellitus | | | | Building | | without mention of | | | | Floor [place], [place] | | complication, not | | | | [address] | | stated as | | | | [phone] | | uncontrolled; PTSD | | | [...] HPI: 37 y.o. year old female from [place] : Patient presents with: IIH - Idiopathic [...] because they live 4 hours away in [facility] [place] [facility]. Tobacco use: reports that she has been [...] Right Left Disc 1+ Optic disc edema, +YARN MERCERIZER OPERATOR 2+ Optic disc edema, RNFL whitening at the superonasal borde r of the disc. There is spontaneous pulsing of the entire disc head with heart beat. C/D Ratio 0.1 0.1 Macula Normal Normal Vessels Engorged. tortuous Engorged. tortuous Periphery Normal Normal Neuro/Psych Oriented x3: Yes Mood/Affect: Normal See [facility] Ophthalmology Exam Module for additional [...] sheath fenestra tion (by Dr. Hughes at [facility] in 2006) and s/p multiple lumboperitoneal [...] Dr. Lux. Mo Hood MD Resident Physician [facility] [place], PGY-2 [facility] Physician: Mo Hood [...]
--- OUTSIDE RECORDS SUMMARY | ~2020-07-07 | XMS | Encounter Summary ---
Demographics + + + | Address | [address] | | | [place] [address] | + + + | Home Phone [...] Author | [facility] | + + + | Organization | [facility] [employer]Rack [employer] [facility] [...] Providers + +------+ + | Care Data Conversion Analyst Name | Role | Phone | [...] [place] | | | | | Ave [facility] | [place], [place] | | | | | Health and Healing, | [address] | | | | | [facility] | [phone] | | | | | floor [place], [place] | | | | | | [address] | | | | | | [phone] | | | +--------+ + + + [...]
--- OUTSIDE RECORDS SUMMARY | ~2020-07-07 | XMS | Encounter Summary ---
Demographics + + + | Address | [address] | | | [place] [address] | + + + | Home Phone [...] + | Author | [facility] | + + + | Organization | [facility] [employer] [facility] [...] Ave [facility] | [place], [place] | | | | | Health and Healing, | [address] | | | | | Building 1, 8th | [phone] | | | | | floor [place], [place] | | | | | | [address] | | | | | | [phone] | | | +--------+ + + + [...]
--- OUTSIDE RECORDS SUMMARY | ~2020-07-07 | XMS | Encounter Summary ---
Demographics + + + | Address | [address] | | | [place] [address] | [...] + | Author | [facility] | + + + | Organization | [facility] [employer] [facility] | + [...] Providers + +------+ + | Care Fire Investigation Lieutenant Name | Role | Phone | [...] | | 2006 | Visit | [place] | | (Primary Dx) | | | | Neuro-Ophthalmology | | | | | | [address] [facility] | | | | | | Mailcode: PATTI | | | | | | [place] [address] | | | | | | [phone] | | | +--------+---------+ + + + [...] Brad Currie MD Neuro-Ophthalmology and Cerebrovascular Disease Foundry Melt Supervisor of Ophthalmology, Neurology, and Neurosurgery documented [...]
--- OUTSIDE RECORDS SUMMARY | ~2020-07-07 | XMS | Encounter Summary ---
Demographics + + + | Address | [address] | | | [place] [address] | + + + | Home Phone [...] Author | [facility] | + + + | Organization | [facility] [employer] [facility] | + + [...] Providers + +------+ + | Care Nutrition Representative Name | Role | Phone | [...] | Headache | | 2005 | | [place]/Ophthalmol | MD Jordin | | | | | leon at [facility] [address] | | | | | | [address] [facility] | | | | | | Health and Healing, | | | | | | Building | | | | | | Floor [place], [place] | | | | | | [address] | | | | | | [phone] | | | +--------+ + + + [...]
--- OUTSIDE RECORDS SUMMARY | ~2020-07-07 | XMS | Encounter Summary ---
Demographics + + + | Address | [address] | | | [place] [address] | + + + | Home Phone [...] Author | [facility] [facility] | + + + | Organization | [facility] Parkt [employer] [facility] | + [...] + +------+ + | Care Director Of Financial Aid Name | Role | Phone | [...] | [address] [facility] | [place], [place] | | | | | Health and Healing, | [address] | | | | | [facility] | [phone] | | | | | floor [place], [place] | | | | | | [address] | | | | | | [phone] | | | +--------+ + + + [...]
--- OUTSIDE RECORDS SUMMARY | ~2020-07-07 | XMS | Encounter Summary ---
Demographics + + + | Address | [address] | | | [place] [address] | + + + | Home Phone [...] + | Author | [facility] [employer] [facility] | + + + | Organization | [facility] Accipiter Radar [employer] [facility] [...] Team Providers + +------+ + | Care Horseback Excavator Name | Role | Phone | + [...] [place] | | | | | | [address] | | | | | | [phone] | | | +--------+ + + + [...]
--- OUTSIDE RECORDS SUMMARY | ~2020-07-07 | XMS | Encounter Summary ---
Demographics + + + | Address | [address] | | | [place] [address] | + + + | Home Phone [...] + | Author | [facility] | + + + | Organization | [facility] [employer] [facility] | + + + | Address | Unknown | + + + | Phone | Unavailable | + + + Support + + +---------+ + | Name | Relationship | Address | Phone | + + +---------+ + | Ruby Au | ECON | Unknown | | + + +---------+ + Care Team Providers + +------+ + | Care T[place]ings [place] Laborer Name | Role | Phone | [...] | | 2012 | anned | [address] [facility] | | | | | | [address] | | | | | | [place], [place] | | | | | | [address] | | | +--------+ + + + [...]
--- OUTSIDE RECORDS SUMMARY | ~2020-07-07 | XMS | Encounter Summary ---
Demographics + + + | Address | [address] | | | [place] [address] | + + + | Home Phone [...] Author | [facility] [facility] | + + + | Organization | [facility] [employer] [facility] | + [...] Providers + +------+ + | Care Shipping Agent Name | Role | Phone | [...] | | | Ave Center for | [place], [place] | | | | | Health and Healing, | [address] | | | | | [facility] | [phone] | | | | | floor [place], [place] | | | | | | [address] | | | | | | [phone] | | | +--------+---------+ + + + [...] wanted to have LP shunt instead of LEVELMAN shunt because she d oes not weant [...]
--- OUTSIDE RECORDS SUMMARY | ~2020-07-07 | XMS | Encounter Summary ---
Demographics + + + | Address | [address] | | | [place] [address] | + + + | Home Phone [...] | [facility] [...] Providers + +------+ + | Care Residence Leasing Agent Name | Role | Phone | + +------+ + PCP | Unavailable | + +------+ + Encounter Details +--------+ + + + + | Date | Type | Department | Care Team | Description | +--------+ + + + + | 06/10/ | Hospital | [facility] | | | | 1991 | Encounter | MED [facility] | | | | | | HEALTH [address] | | | | | | [place], | | | | | | [place] [address] | | | | | | [phone] | | | +--------+ + + + [...]
--- OUTSIDE RECORDS SUMMARY | ~2020-07-07 | XMS | Encounter Summary ---
Demographics + + + | Address | [address] | | | [place] [address] | + + + | Home Phone [...] + | Author | [facility] | + + + | Organization | [facility] [employer] [facility] | [...] Providers + +------+ + | Care Operations Agent Name | Role | Phone | + +------+ + | Brenden Benavides MD | PCP | | + +------+ + Encounter Details +--------+ + + + + | Date | Type | Department | Care Team | Description | +--------+ + + + + | 02/23/ | Telephone | [facility] | Brad Currie MD | | | 2006 | | [place] | | | | | | Neuro-Ophthalmology | | | | | | [address] [facility] | | | | | | Mailcode: PATTI | | | | | | [place] [address] | | | | | | [phone] | | | +--------+ + + + [...]
--- OUTSIDE RECORDS SUMMARY | ~2020-07-07 | XMS | Encounter Summary ---
Demographics + + + | Address | [address] | | | [place] [address] | + + + | Home Phone [...] | Organization | [facility] | | | [...] Team Providers + +------+ + | Care Overedge Machine Operator Name | Role | Phone | + +------+ + PCP | Unavailable | + +------+ + Encounter Details +--------+ + + + + | Date | Type | Department | Care Team | Description | +--------+ + + + + | 03/14/ | [facility] | [facility] | Pancho Gonzalez | | | 2012 | Encounter | HOSPITAL EMERGENCY | [place] [address] [facility] | | | | | CENTER [address] | [facility] [address] | | | | | [address] [place] | [place], [place] | | | | | [address] | [address] | | | | | [phone] | | | +--------+ + + + [...]
--- OUTSIDE RECORDS SUMMARY | ~2020-07-07 | XMS | Encounter Summary ---
Demographics + + + | Address | [address] | | | [place] [address] | + + + | Home Phone [...] + + | Author | [facility] | + + + | Organization | [facility] [...] Team Providers + +------+ + | Care Trawl Net Maker Name | Role | Phone | + +------+ + | Brenden Benavides MD | PCP | | + +------+ + Encounter Details +--------+ + + + + | Date | Type | Department | Care Team | Description | +--------+ + + + + | 02/21/ | Telephone | [facility] | Pascual Bermudez [address] | | | 2006 | | [place] | [address] | | | | | Oculoplastics at | [facility], [place] | | | | | Maicol Perez [address] | [address] | | | | | [address] | | | | | | Eye [place] | | | | | | [facility], 5th floor | | | | | | [place] [address] | | | | | | [phone] | | | +--------+ + + + [...]
--- OUTSIDE RECORDS SUMMARY | ~2020-07-07 | XMS | Encounter Summary ---
Demographics + + + | Address | [address] | | | [place] [address] | + + + | Home Phone [...] Author | [facility] | + + + | Organization | [facility] [employer] [facility] | + [...] Team Providers + +------+ + | Care Boat Carpenter Mechanic Name | Role | Phone | [...] [address] | | | | | | [address] | Ave | | | | | | [address] | [place], [place] | | | | | | [place], | [address] | | | | | | [place] [address] | Phone: | | | | | | Phone: | [phone] | | | | | | [phone] | Fax: | | | | | | Fax: | [phone] | | | | | | [phone] | | +--------+ + + + + [...] | | | Ave [facility] for | [place], [place] | | | | | Health and Healing, | [address] | | | | | | [phone] | | | | | floor [place], [place] | | | | | | [address] | | | | | | [phone] | | | +--------+---------+ + + + [...] soon. I spent more than 15 minutes [id number] with the patient of which greater than 50% was sp ent counseling the patient regarding the shunt removal, indications and venous sinus stent a ngioplasty. Since her shunt is brent effective now she will need narcotics for headache and he r PCP should manage that. CASIMIRO PAYTON MD NEUROSURGERY [address] Mailcode: Ch[facility], [address] [place] [address] documented in this encou nter Plan of Treatment Not on filedocumented as of this encounter Visit Diagnoses + + | Diagnosis | + + | Pseudotumor cerebri - Primary Benign intracranial hypertension | + + documented in this encounter
--- OUTSIDE RECORDS SUMMARY | ~2020-07-07 | XMS | Encounter Summary ---
Demographics + + + | Address | [address] | | | [place] [address] | + + + | Home Phone [...] + | Author | [facility] | + + + | Organization | [facility] [employer] [facility] | + + [...] Providers + +------+ + | Care Insurance Professional Name | Role | Phone | [...] | | | Ave [facility] for | [place], [place] | | | | | Health and Healing, | [address] | | | | | [facility] | [phone] | | | | | floor [place], [place] | | | | | | [address] | | | | | | [phone] | | | +--------+ + + + [...]
--- OUTSIDE RECORDS SUMMARY | ~2020-07-07 | XMS | Encounter Summary ---
Demographics + + + | Address | [address] | | | [place] [address] | + + + | Home Phone [...] + | Author | [facility] | + + + | Organization | [facility] [...] Providers + +------+ + | Care Salesperson Hosiery Name | Role | Phone | + [...] | | | Ave [facility] for | [place], [place] | | | | | Health and Healing, | [address] | | | | | [facility] | [phone] | | | | | floor [place], [place] | | | | | | [address] | | | | | | [phone] | | | +--------+ + + + [...]
--- OUTSIDE RECORDS SUMMARY | ~2020-07-07 | XMS | Encounter Summary ---
Demographics + + + | Address | [address] | | | [place] [address] | + + + | Home Phone [...] | Author | [facility] | + + + | Organization | [facility] [employer] [facility] | + [...] Team Providers + +------+ + | Care Bass Singer Name | Role | Phone | + +------+ + | Dennis Maddox | PCP | | + +------+ + Encounter Details +--------+ + + + + | Date | Type | Department | Care Team | Description | +--------+ + + + + | 02/28/ | Emergency | [facility] Emergency | | | | 2013 - | | Department [address] | | | | | | [address] | | | | 03/01/ | | [facility] | | | | 2013 | | [place], [place] | | | | | | [address] | | | | | | [phone] | | | +--------+ + + + [...]
--- OUTSIDE RECORDS SUMMARY | ~2020-07-07 | XMS | Encounter Summary ---
Demographics + + + | Address | [address] | | | [place] [address] | + + + | Home Phone [...] | [facility] | + + + | Organization | [facility]ERI [facility] | + [...] Team Providers + +------+ + | Care Lap Winder Name | Role | Phone | [...] + + | 08/24/ | Emergency | [facility] Emergency | Tylor Mcclellan, | | | 2010 | | Department [address] | [address] | | | | | [address] | MD [place] [address] | | | | | [facility] | Dilshad Sandra Maloney | | | | | [place], [place] | [place], [place] | | | | | [address] | [address] | | | | | [phone] | [phone] | | | | | | | [...] take care of you at [facility] today. Follow up with primary care physician [...] | | + +---------+ + + | [facility] DEPARTMENT OF | | | [...]
--- OUTSIDE RECORDS SUMMARY | ~2020-07-07 | XMS | Encounter Summary ---
Demographics + + + | Address | [address] | | | [place] [address] | + + + | Home Phone [...] | Author | [facility] | + + + | Organization | [facility] [employer] [facility] | + [...] Team Providers + +------+ + | Care Diagnostic Technician Name | Role | Phone | [...] | | [place] Mailcode:[id number] | Sandra Maloney [place], | | | | | [facility] | [place] [address] | | | | | [place], [place] | | | | | | [address] | | | | | | [phone] | | | +--------+ + + + [...]
--- OUTSIDE RECORDS SUMMARY | ~2020-07-07 | XMS | Encounter Summary ---
Demographics + + + | Address | [address] | | | [place] [address] | + + + | Home Phone [...] + | Author | [facility] | + + + | Organization | [facility] [employer] [facility] | + [...] Team Providers + +------+ + | Care Jeep Driver Name | Role | Phone | + +------+ + | Brenden Benavides MD | PCP | | + +------+ + Encounter Details +--------+ + + + + | Date | Type | Department | Care Team | Description | +--------+ + + + + | 01/05/ | Telephone | [facility] | Brad Currie MD | | | 2006 | | [place] | | | | | | Neuro-Ophthalmology | | | | | | [address] [facility] | | | | | | Mailcode: PATTI | | | | | | [place] [address] | | | | | | [phone] | | | +--------+ + + + [...]
--- OUTSIDE RECORDS SUMMARY | ~2020-07-07 | XMS | Encounter Summary ---
Demographics + + + | Address | [address] | | | [place] [address] | + + + | Home Phone [...] + + + | Author | [facility] | + + + | Organization | [facility] [...] Providers + +------+ + | Care Delivery Analyst Name | Role | Phone | [...] | | | | | [address] [place] for | [address] | | | | | Health and Healing, | [facility] [place] | | | | | | [address] | | | | | Floor [place], [place] | | | | | | [address] | | | | | | [phone] | | | +--------+--------+ + + + [...]
--- OUTSIDE RECORDS SUMMARY | ~2020-07-07 | XMS | Encounter Summary ---
Demographics + + + | Address | [address] | | | [place] [address] | + + + | Home Phone [...] [facility] | + + + | Organization | [facility] [employer] [facility] | + [...] Providers + +------+ + | Care Shipping Room Supervisor Name | Role | Phone | [...] | Health and Healing, | DANIELITO [facility] | | | | | Building | [place], [place] | | | | | floor [place], [place] | [address] | | | | | [address] | | | | | | [phone] | | | +--------+---------+ + + + [...] on 08/01. PARQ held with patient [email or web address] answered to her satisfaction. Consent signed and instructions given. documented in this encoun ter Plan of Treatment Not on filedocumented as of this encounter Visit Diagnoses + + | Diagnosis | + + | Pseudotumor cerebri - Primary Benign intracranial hypertension | + + documented in this encounter"
--- OUTSIDE RECORDS SUMMARY | ~2020-07-07 | XMS | Encounter Summary ---
Demographics + + + | Address | [address] | | | [place] [address] | + + + | Home Phone [...] + + | Author | [facility] | + + + | Organization | [facility] [employer] [facility] [...] Team Providers + +------+ + | Care Desk Monitor Name | Role | Phone | [...] [address] | | | | | | [facility] for | | | | | | Health and Healing, | | | | | | Building | | | | | | floor [place], [place] | | | | | | [address] | | | | | | [phone] | | | +--------+ + + + [...]
--- OUTSIDE RECORDS SUMMARY | ~2020-07-07 | XMS | Encounter Summary ---
Demographics + + + | Address | [address] | | | [place] [address] | + + + | Home Phone [...] + + | Author | [facility] | + + + | Organization | [facility] [...] Providers + +------+ + | Care Hide And Skin Classer Name | Role | Phone | + [...] | [address] | | | | [facility] | [place], [place] | | | | | Health and Healing, | [address] | | | | | Building | [phone] | | | | | floor [place], [place] | | | | | | [address] | | | | | | [phone] | | | +--------+ + + + [...]
--- OUTSIDE RECORDS SUMMARY | ~2020-07-07 | XMS | Encounter Summary ---
Demographics + + + | Address | [address] | | | [place] [address] | + + + | Home Phone [...] + | Author | [facility] | + + + | Organization | [facility] [employer] [facility] | + [...] Providers + +------+ + | Care Plastic Parts Designer Name | Role | Phone | [...] [address] | | | | | | [facility] for | | | | | | Health and Healing, | | | | | | Building | | | | | | floor [place], [place] | | | | | | [address] | | | | | | [phone] | | | +--------+ + + + [...]
--- OUTSIDE RECORDS SUMMARY | ~2020-07-07 | XMS | Encounter Summary ---
Demographics + + + | Address | [address] | | | [place] [address] | + + + | Home Phone [...] + | Author | [facility] [facility] | + + + | Organization | [facility] [employer] [facility] [...] Providers + +------+ + | Care Funeral Home Location Manager Name | Role | Phone | + +------+ + | Brenden Aqiuno MD | PCP | | + +------+ [...] Cerebri; | | 2006 | Visit | [place]/Ophthalmol | | Papilledema | | | | ogy at [facility] [address] | | Associated with | | | | [facility] for | | Increased | | | | Health and Healing, | | Intracranial | | | | Building | | Pressure; Transient | | | | Floor [place], [place] | | Visual Loss | | | | [address] | | | | | | [phone] | | | +--------+---------+ + + + [...] HPI: 31 y.o. year old female from [place] : Patient presents with: Transient visual loss [...] seconds; these occur 2-3 x per w [place] [facility] [place]. Hobbies: Tobacco use: reports that she has [...] patient to continue follow-up for [facility]uedotumor [facility] neuro-ophth. Follow up at [facility] prn new symptoms or complaints. WADE Jensen [...]
--- OUTSIDE RECORDS SUMMARY | ~2020-07-07 | XMS | Encounter Summary ---
Demographics + + + | Address | [address] | | | [place] [address] | + + + | Home Phone [...] + | Organization | [facility] [...] Providers + +------+ + | Care Project Inspector Name | Role | Phone | + +------+ + PCP | Unavailable | + +------+ + Encounter Details +--------+ + + + + | Date | Type | Department | Care Team | Description | +--------+ + + + + | 07/06/ | Hospital | [facility] | Mirna Lambert | | | 2007 | Encounter | MED CTR EMERGENCY | MD Kwaku Gregory | | | | | [address] | [facility] | | | | | [place] | [place] [address] | | | | | [address] | [phone] | | | | | [phone] | | | +--------+ + + + [...]
--- OUTSIDE RECORDS SUMMARY | ~2020-07-07 | XMS | Encounter Summary ---
Demographics + + + | Address | [address] | | | [place] [address] | + + + | Home Phone [...] Organization | [facility] | | | [...] Team Providers + +------+ + | Care Integrated Logistics Support Manager Name | Role | Phone | + +------+ + PCP | Unavailable | + +------+ + Encounter Details +--------+ + + + + | Date | Type | Department | Care Team | Description | +--------+ + + + + | 08/12/ | Hospital | [facility] | Jenn [place], | | | 2012 | Encounter | HOSPITAL EMERGENCY | [facility] [address] | | | | | CENTER [address] | [place] | | | | | [place] | [id number] | | | | | [address] | | | | | | [phone] | | | +--------+ + + + [...]
--- OUTSIDE RECORDS SUMMARY | ~2020-07-07 | XMS | Encounter Summary ---
Demographics + + + | Address | [address] | | | [place] [address] | + + + | Home Phone [...] + | Author | [facility] | + + + | Organization | [facility] [employer] [facility] [...] Team Providers + +------+ + | Care Careers Counsellor Name | Role | Phone | + +------+ + | Brenden Benavides MD | PCP | | + +------+ + Encounter Details +--------+ + + + + | Date | Type | Department | Care Team | Description | +--------+ + + + + | 09/28/ | Documentati | [facility] | Brad Currie MD | | | 2006 | on | [place] | | | | | | Neuro-Ophthalmology | | | | | | [address] | | | | | | Mailcode: PATTI | | | | | | [place] [address] | | | | | | [phone] | | | +--------+ + + + [...]
--- NOTE | 2020-07-08 12:10 | EKG ---
[facility] [address] [facility] [place] [address] Signed Normal sinus rhythm Normal ECG When compared with ECG of 01-NOV-2019 18:08, Nonspecific T wave abnormality no longer evident in Inferior leads Nonspecific T wave abnormality no longer evident in Anterior leads Confirmed by MIRIAM JACK MD ([id number]) on 07/08/2020 12:10:43 PM Electronically Signed By: MIRIAM JACK MD 07/08/20 1210 PATIENT NAME: GABY STEWART Electrocardiogram DATE OF : 75 PHYSICIAN: MIRIAM JACK MD REPORT #: [id number] REPORT IS CONFIDENTIAL AND NOT TO BE RELEASED WITHOUT AUTHORIZATION
== END 2020-07-07 20:39 | disposition home or self-care (01) ==
LOC: ED 19:40
DX: T40.4X1A Poisoning by other synthetic narcotics, accidental (unintentional), initial encounter (principal); E11.9 Type 2 diabetes mellitus without complications; I10 Essential (primary) hypertension; J44.9 Chronic obstructive pulmonary disease, unspecified; F17.200 Nicotine dependence, unspecified, uncomplicated; Z88.5 Allergy status to narcotic agent; Z88.1 Allergy status to other antibiotic agents; Z88.6 Allergy status to analgesic agent; Z88.8 Allergy status to other drugs, medicaments and biological substances; Z79.899 Other long term (current) drug therapy
CPT/HCPCS: 71045; 80053; 83690; 84484; 85025; 93005; 93010; 99284-25; G0480; J7030

== ENCOUNTER 2020-07-19 22:48 | Inpatient (IN) | payer OTHER ==
[~2020-07-19] VITALS: Ht 165.1 cm; Wt 108.9 kg
--- OUTSIDE RECORDS SUMMARY | ~2020-07-19 | XMS | Encounter Summary ---
Demographics + + + | Address | [address] | | | [place] [address] | + + + | Home Phone | | + + + | Preferred Language | Unknown | + + + | Marital Status | | + + + | Denominational Affiliation | NON | + + + | Race | or | + + + | Ethnic Group | Not or | + + + Author + + + | Author | [facility] [employer] [facility] | + + + | Organization | [facility] [employer] [facility] | + + + | Address | Unknown | + + + | Phone | Unavailable | + + + Support + + +---------+ + | Name | Relationship | Address | Phone | + + +---------+ + | Ruby Au | ECON | Unknown | | + + +---------+ + Care Team Providers + +------+ + | Care Email Marketing Coordinator Name | Role | Phone | + +------+ + | Yeiosn Simms MD | PCP | Unavailable | + +------+ + Reason for Visit + +--------+ + | Reason | Onset | Comments | | | Date | | + +--------+ + | Headache | 07/24/ | | | | 2008 | | + +--------+ + Encounter Details +--------+ + + + + | Date | Type | Department | Care Team | Description | +--------+ + + + + | 07/24/ | Telephone | Neurosurgery at | Eladio Pang MD | Headache | | 2008 | | [facility] [address] | [address] | | | | | Ave Center for | [place], [place] | | | | | Health and Healing, | [address] | | | | | [facility] | [phone] | | | | | floor [place], [place] | | | | | | [address] | | | | | | [phone] | | | +--------+ + + + [...] + + documented as of this encounter Miscellaneous Notes Telephone Encounter - Eladio Pang MD - 07/24/2009 9:57 PM PDTI spoke to Annabella Au on the phone today. She had a lumbar-peritoneal shunt placed by Dr. Pedroza in July. She called with complaints of headache and blurry vision x1 week. She describes the h eadache as 6/10 and worse when she stands up and better when she lays down. She also compla ins of nausea and fatigue. She states that she visited the ED in [place] two days ago and was discharged without incident. She also states that she has had a 40lb weight gain i n the last 2-3 weeks. She normally weighs about 240lbs and she now weighs around 290 lbs. I discussed her case with Ishaan White MD PGY-7 and we concluded that her LP shunt may be overdraining. She does not need to be seen emergently. We advised her to keep well hydr ated and that caffeine may improve her headache. She was instructed to call Dr. Pedroza's cli valentín tomorrow and schedule an appointment to be seen for evaluation. She can be reached at [facility] at [phone]. docum ented in this encounter Plan of Treatment Not on filedocumented as of this encounter Visit Diagnoses Not on filedocumented in this encounter"
--- OUTSIDE RECORDS SUMMARY | ~2020-07-19 | XMS | Encounter Summary ---
Demographics + + + | Address | [address] | | | [place] [address] | + + + | Home Phone | | + + + | Preferred Language | Unknown | + + + | Marital Status | | + + + | Voodoo Affiliation | NON | + + + | Race | or | + + + | Ethnic Group | Not or | + + + Author + + + | Author | [facility] | + + + | Organization | [facility] | + + + | Address | Unknown | + + + | Phone | Unavailable | + + + Support + + +---------+ + | Name | Relationship | Address | Phone | + + +---------+ + | Ruby Au | ECON | Unknown | | + + +---------+ + Care Team Providers + +------+ + | Care Insurance Investigator Name | Role | Phone | + +------+ + | Brenden Benavides MD | PCP | | + +------+ + Reason for Visit + +--------+ + | Reason | Onset | Comments | | | Date | | + +--------+ + | Refill Request | 02/09/ | Pt requests more pain medication | | | 2006 | | + +--------+ + Encounter Details +--------+--------+ + + + | Date | Type | Department | Care Team | Description | +--------+--------+ + + + | 02/09/ | Refill | [facility] | Hay Hughes MD [address] | Refill Request (Pt | | 2006 | | [place] | [address] | requests more pain | | | | Oculoplastics at | [place], [place] | medication) | | | | [address] | [address] | | | | | [address] | [phone] | | | | | [facility] [place] | | | | | | [facility] [address], [address] [place] [address] | | | | | | [place] [address] | | | | | | [phone] | | | +--------+--------+ + + + [...] this encounter Miscellaneous Notes Telephone Encounter - Maverick Cross Romina A - 02/09/2007 5:09 PM PDTPt requested more pain medication. Pain is under control with Vicodin but she was concerned about needing more ove r the weekend. Rx called in to pharmacy [facility] . documented in this encounter Plan of Treatment Not on filedocumented as of this encounter Visit Diagnoses Not on filedocumented in this encounter"
--- OUTSIDE RECORDS SUMMARY | ~2020-07-19 | XMS | Encounter Summary ---
Demographics + + + | Address | [address] | | | [place] [address] | + + + | Home Phone | | + + + | Preferred Language | Unknown | + + + | Marital Status | | + + + | Faith Affiliation | Unknown | + + + | Race | or | + + + | Ethnic Group | Not or | + + + Author + + + | Author | [facility] | | | and [place] | + + + | Organization | [facility] | | [...] Team Providers + +------+ + | Care Plugger Worker Name | Role | Phone | + +------+ + PCP | Unavailable | + +------+ + Encounter Details +--------+ + + + + | Date | Type | Department | Care Team | Description | +--------+ + + + + | 09/27/ | Hospital | [facility] | | | | 1991 | Encounter | [facility] | | | | | | [facility] [address] | | | | | | [place], | | | | | | [place] [address] | | | | | | [phone] | | | +--------+ + + + [...]
--- OUTSIDE RECORDS SUMMARY | ~2020-07-19 | XMS | Encounter Summary ---
Demographics + + + | Address | [address] | | | [place] [address] | + + + | Home Phone | | + + + | Preferred Language | Unknown | + + + | Marital Status | | + + + | Faith Affiliation | NON | + + + | Race | or | + + + | Ethnic Group | Not or | + + + Author + + + | Author | [facility] | + + + | Organization | [facility] | + + + | Address | Unknown | + + + | Phone | Unavailable | + + + Support + + +---------+ + | Name | Relationship | Address | Phone | + + +---------+ + | Ruby Au | ECON | Unknown | | + + +---------+ + Care Team Providers + +------+ + | Care Pastry Baker Name | Role | Phone | + +------+ + | Yeison Simms MD | PCP | Unavailable | + +------+ + Reason for Visit +--------+ + | Reason | Comments | +--------+ + | Preop | | +--------+ + Encounter Details +--------+---------+ + + + | Date | Type | Department | Care Team | Description | +--------+---------+ + + + | 07/22/ | Office | Preoperative | Maryellen Elizabeth, | Other Specified | | 2007 | Visit | Medicine Clinic at | PHARMACY DISTRICT MANAGER [address] [facility] | Pre-Operative | | | | [facility] 4th Floor [address] | Examination (Primary | | | | [address] | [place], [place] | Dx); Pseudotumor | | | | Mailcode: [id number] | [id number] | Cerebri; Encounter | | | | [facility] | [phone] | for Long-Term | | | | and Healing, | | (Current) Use of | | | | Building 1,4th Floor | | Anticoagulants | | | | [place], [place] | | | | | | [address] | | | | | | [phone] | | | +--------+---------+ + + + [...] | Blood Pressure | 123/79 | 07/22/2008 12:42 PM | | | | | PDT | | + + + + + | Pulse | 105 | 07/22/2008 12:42 PM | | | | | PDT | | + + + + + | Temperature | 36.7 C (98.1 F) | 07/22/2008 12:42 PM | | | | | PDT | | + + + + + | Respiratory Rate | 14 | 07/22/2008 12:42 PM | | | | | PDT | | + + + + + | Oxygen Saturation | 98% | 07/22/2008 12:42 PM | | | | | PDT | | + + + + + | Inhaled Oxygen | - | - | | | Concentration | | | | + + + + + | Weight | 109.8 kg (242 lb) | 07/22/2008 12:42 PM | | | | | PDT | | + + + + + | Height | 165.1 cm (5' 5") | 07/22/2008 12:42 PM | | | | | PDT | | + + + + + | Body Mass Index | 40.27 | 07/22/2008 12:42 PM | | | | | PDT | | + + + + + documented in this encounter Progress Notes Maryellen Elizabeth FNP - 09/09/2009 1:22 PM PDT Addended by: MARYELLEN ELIZABETH on: 9 Modules accepted: Level of Service aryellen Elizabeth - 07/22/2008 12:47 PM PDTSee Scanned H&P. [facility] [address] [facility]4th [place] [phone] documented in this encou nter Plan of Treatment + + +--------+ + + | Name | Type | Priori | Associated Diagnoses | Order Schedule | | | | ty | | | + + +--------+ + + | LA COLLECTION VENOUS | Procedures | Routin | Other Specified | Ordered: 07/22/2008 | | BLOOD,VENIPUNCTURE | | e | Pre-Operative | | | | | | Examination | | + + +--------+ + + documented as of this encounter Procedures + +--------+ + + + | Procedure Name | Priori | Date/Time | Associated Diagnosis | Comments | | | ty | | | | + +--------+ + + + | DIFFERENTIAL | Routin | 07/22/2008 | | Results for this | | | e | 12:52 PM | | procedure are in the | | | | PDT | | results section. | + +--------+ + + + | INR | Routin | 07/22/2008 | Encounter for | Results for this | | | e | 12:52 PM | Long-Term (Current) | procedure are in the | | | | PDT | Use of | results section. | | | | | Anticoagulants | | + +--------+ + + + | BASIC METABOLIC SET | Routin | 07/22/2008 | Other Specified | Results for this | | (NA, K, CL, TCO2, | e | 12:52 PM | Pre-Operative | procedure are in the | | BUN, CR, GLU, CA) | | PDT | Examination | results section. | + +--------+ + + + | CBC ONLY | Routin | 07/22/2008 | Other Specified | Results for this | | | e | 12:52 PM | Pre-Operative | procedure are in the | | | | PDT | Examination | results section. | + +--------+ + + + | APTT (ACT. PART. | Routin | 07/22/2008 | Encounter for | Results for this | | THROMBO TIME) | e | 12:52 PM | Long-Term (Current) | procedure are in the | | | | PDT | Use of | results section. | | | | | Anticoagulants | | + +--------+ + + + | DIFFERENTIAL | Routin | 07/22/2008 | | Results for this | | | e | 12:48 PM | | procedure are in the | | | | PDT | | results section. | + +--------+ + + + documented in this encounter Results DIFFERENTIAL (07/22/2008 12:52 PM PDT) + +-------+ + + + | Component | Value | Ref Range | Performed | Pathologist | | | | | At | Signature | + +-------+ + + + | NEUTROPHIL | 67 | 50 - 70 % | [facility] | | | % | | | DEPARTMENT | | | | | | OF | | | | | | PATHOLOGY | | + +-------+ + + + | LYMPHOCYTE | 26 | 18 - 42 % | [facility] | | | % | | | DEPARTMENT | | | | | | OF | | | | | | PATHOLOGY | | + +-------+ + + + | MONOCYTE % | 4 | 2 - 8 % | [facility] | | | | | | DEPARTMENT | | | | | | OF | | | | | | PATHOLOGY | | + +-------+ + + + | EOS % | 2 | 1 - 3 % | [facility] | | | | | | DEPARTMENT | | | | | | OF | | | | | | PATHOLOGY | | + +-------+ + + + | BASO % | 0 | <3 % | [facility] | | | | | | DEPARTMENT | | | | | | OF | | | | | | PATHOLOGY | | + +-------+ + + + | NEUTROPHIL | 7.2 | 1.8 - 7.7 K/cu | [facility] | | | # | | mm | DEPARTMENT | | | | | | OF | | | | | | PATHOLOGY | | + +-------+ + + + | LYMPHOCYTE | 2.8 | 1.0 - 4.8 K/cu | [facility] | | | # | | mm | DEPARTMENT | | | | | | OF | | | | | | PATHOLOGY | | + +-------+ + + + | MONOCYTE # | 0.4 | <0.9 K/cu mm | [facility] | | | | | | DEPARTMENT | | | | | | OF | | | | | | PATHOLOGY | | + +-------+ + + + | EOS # | 0.2 | <0.6 K/cu mm | [facility] | | | | | | DEPARTMENT | | | | | | OF | | | | | | PATHOLOGY | | + +-------+ + + + | BASO # | 0.0 | <0.3 | [facility] | | | | | | DEPARTMENT | | | | | | OF | | | | | | PATHOLOGY | | + +-------+ + + + + + | Specimen | + + | | + + + + + + + | Performing | Address | City/State/Zipcode | Phone Number | | Organization | | | | + + + + + | [facility] DEPARTMENT OF | [address] | [place] [address] | | | PATHOLOGY | [address] | | | + + + + + | [facility] DEPARTMENT OF | [address] [facility] | [place] [address] | | | PATHOLOGY | [address] | | | + + + + + APTT (ACT. PART. THROMBO TIME) (07/22/2008 12:52 PM PDT) + + + + + + | Component | Value | Ref Range | Performed | Pathologist | | | | | At | Signature | + + + + + + | APTT | 29.5Comment: | 26.0 - 36.0 | [facility] | | | | APTT Therapeutic Range | seconds | DEPARTMENT | | | | | | OF | | | | (75-120) | | PATHOLOGY | | | | sec | | | | | | Heparin levels of | | | | | | 0.35-0.7 U/mL | | | | + + + + + + + + | Specimen | + + | Blood - Blood | + + + + + + + | Performing | Address | City/State/Zipcode | Phone Number | | Organization | | | | + + + + + | [facility] | [address] [place] [address] | [place] [address] | | | PATHOLOGY | [address] | | | + + + + + | [facility] | [address] [facility] | [place] [address] | | | PATHOLOGY | [address] | | | + + + + + INR (07/22/2008 12:52 PM PDT) + + + + + + | Component | Value | Ref Range | Performed | Pathologist | | | | | At | Signature | + + + + + + | INR | 1.12Comment: | 0.90 - 1.20 INR | [facility] | | | | INR Therapeutic ranges | | DEPARTMENT | | | | for full | | OF | | | | anticoagulation: | | PATHOLOGY | | | | INR for Venous | | | | | | Thromboembolism | | | | | | (2.0-3.0) | | | | | | INR INR for most | | | | | | patients with mech. | | | | | | valves (2.5-3.5) | | | | | | INR | | | | + + + + + + + + | Specimen | + + | Blood - Blood | + + + + + + + | Performing | Address | City/State/Zipcode | Phone Number | | Organization | | | | + + + + + | [facility] DEPARTMENT OF | [address] | [place] [address] | | | PATHOLOGY | [address] | | | + + + + + | [facility] DEPARTMENT OF | [address] | [place] [address] | | | PATHOLOGY | [address] | | | + + + + + CBC ONLY (07/22/2008 12:52 PM PDT) + +-------+ + + + | Component | Value | Ref Range | Performed | Pathologist | | | | | At | Signature | + +-------+ + + + | WHITE CELL | 10.8 | 4.4 - 11.0 K/cu | [facility] | | | COUNT | | mm | DEPARTMENT | | | | | | OF | | | | | | PATHOLOGY | | + +-------+ + + + | RED CELL | 4.68 | 4.00 - 5.20 | [facility] | | | COUNT | | M/cu mm | DEPARTMENT | | | | | | OF | | | | | | PATHOLOGY | | + +-------+ + + + | HEMOGLOBIN | 14.5 | 12.0 - 16.0 | [facility] | | | | | g/dL | DEPARTMENT | | | | | | OF | | | | | | PATHOLOGY | | + +-------+ + + + | HEMATOCRIT | 41.7 | 36.0 - 46.0 % | [facility] | | | | | | DEPARTMENT | | | | | | OF | | | | | | PATHOLOGY | | + +-------+ + + + | MCV | 89.0 | 80.0 - 96.0 fL | [facility] | | | | | | DEPARTMENT | | | | | | OF | | | | | | PATHOLOGY | | + +-------+ + + + | MCHC | 34.8 | 33.4 - 35.5 | [facility] | | | | | g/dL | DEPARTMENT | | | | | | OF | | | | | | PATHOLOGY | | + +-------+ + + + | RDW | 13.6 | 11.5 - 15.0 % | [facility] | | | | | | DEPARTMENT | | | | | | OF | | | | | | PATHOLOGY | | + +-------+ + + + | PLATELET | 231 | 150 - 400 K/cu | [facility] | | | COUNT | | mm | DEPARTMENT | | | | | | OF | | | | | | PATHOLOGY | | + +-------+ + + + + + | Specimen | + + | Blood - Blood | + + + + + + + | Performing | Address | City/State/Zipcode | Phone Number | | Organization | | | | + + + + + | [facility] DEPARTMENT OF | [address] [facility] [facility] | [place] [address] | | | PATHOLOGY | [address] | | | + + + + + | [facility] DEPARTMENT OF | [address] [facility] | [place] [address] | | | PATHOLOGY | [address] | | | + + + + + BASIC METABOLIC SET (NA, K, CL, TCO2, BUN, CR, GLU, CA) (07/22/2008 12:52 PM PDT) + +---------+ + + + | Component | Value | Ref Range | Performed | Pathologist | | | | | At | Signature | + +---------+ + + + | GLUCOSE, | 133 (H) | 60 - 99 mg/dL | [facility] | | | PLASMA | | | DEPARTMENT | | | (LAB) | | | OF | | | | | | PATHOLOGY | | + +---------+ + + + | BUN, PLASMA | 16 | 6 - 20 mg/dL | [facility] | | | (LAB) | | | DEPARTMENT | | | | | | OF | | | | | | PATHOLOGY | | + +---------+ + + + | CREATININE | 0.89 | 0.60 - 1.10 | [facility] | | | PLASMA | | mg/dL | DEPARTMENT | | | (LAB) | | | OF | | | | | | PATHOLOGY | | + +---------+ + + + | SODIUM, | 141 | 134 - 143 | [facility] | | | PLASMA | | mmol/L | DEPARTMENT | | | (LAB) | | | OF | | | | | | PATHOLOGY | | + +---------+ + + + | POTASSIUM, | 3.8 | 3.4 - 5.0 | [facility] | | | PLASMA | | mmol/L | DEPARTMENT | | | (LAB) | | | OF | | | | | | PATHOLOGY | | + +---------+ + + + | CHLORIDE, | 105 | 97 - 108 mmol/L | [facility] | | | PLASMA | | | DEPARTMENT | | | (LAB) | | | OF | | | | | | PATHOLOGY | | + +---------+ + + + | TOTAL CO2, | 26 | 23 - 31 mmol/L | [facility] | | | PLASMA | | | DEPARTMENT | | | (LAB) | | | OF | | | | | | PATHOLOGY | | + +---------+ + + + | CALCIUM, | 9.2 | 8.6 - 10.2 | [facility] | | | PLASMA | | mg/dL | DEPARTMENT | | | (LAB) | | | OF | | | | | | PATHOLOGY | | + +---------+ + + + + + | Specimen | + + | Blood - Blood | + + + + + | Narrative | Performed At | + + + | [id number] Estimated GFR > 60 mL/min/1.73 sq m if non- | [facility] | | [place] [id number] Estimated GFR > 60 mL/min/1.73 sq m if | DEPARTMENT OF | | [place] GFR is estimated using the MDRD equation recommended by | PATHOLOGY | | the National Kidney Disease Education Program. Estimated GFR | | | Interpretive Information: <60 mL/min/1.73 sq m Chronic Kidney | | | Disease <15 mL/mon/1.73 sq m Kidney Failure Estimated GFR | | | greater than 60mL/min/1.73 is of limited clinical Value. The MDRD | | | equation is not valid in the following situations: - Patients under | | | 18 years of age - Severe malnutrition or obesity - Vegetarian diet | | | - Rapidly changing kidney function New Reference ranges | | | effective 05/16/08 for: Sodium, Potassium, Chloride,Total CO2, | | | Calcium | | + + + + + + + + | Performing | Address | City/State/Zipcode | Phone Number | | Organization | | | | + + + + + | [facility] | [address] | [place] [address] | | | PATHOLOGY | [address] | | | + + + + + | [facility] DEPARTMENT OF | [address] | [place] [address] | | | PATHOLOGY | [address] | | | + + + + + DIFFERENTIAL (07/22/2008 12:48 PM PDT) + + + + + + | Component | Value | Ref Range | Performed | Pathologist | | | | | At | Signature | + + + + + + | NEUTROPHIL | Combined. | 50 - 70 % | [facility] | | | % | | | DEPARTMENT | | | | | | OF | | | | | | PATHOLOGY | | + + + + + + | LYMPHOCYTE | Combined. | 18 - 42 % | [facility] | | | % | | | DEPARTMENT | | | | | | OF | | | | | | PATHOLOGY | | + + + + + + | MONOCYTE % | Combined. | 2 - 8 % | [facility] | | | | | | DEPARTMENT | | | | | | OF | | | | | | PATHOLOGY | | + + + + + + | EOS % | Combined. | 1 - 3 % | [facility] | | | | | | DEPARTMENT | | | | | | OF | | | | | | PATHOLOGY | | + + + + + + | BASO % | Combined. | <3 % | [facility] | | | | | | DEPARTMENT | | | | | | OF | | | | | | PATHOLOGY | | + + + + + + + + | Specimen | + + | | + + + + + | Narrative | Performed At | + + + | Combined with request same date/time. | [facility] | | | DEPARTMENT OF | | | PATHOLOGY | + + + + + + + + | Performing | Address | City/State/Zipcode | Phone Number | | Organization | | | | + + + + + | [facility] DEPART[facility] | [address] [place] [address] | [place] [address] | | | PATHOLOGY | [address] | | | + + + + + | [facility] DEPARTMENT OF | [facility] | [place] [address] | | | PATHOLOGY | [address] | | | + + + + + documented in this encounter Visit Diagnoses + + | Diagnosis | + + | Other specified pre-operative examination - Primary | + + | Pseudotumor cerebri Benign intracranial hypertension | + + | rn long term care (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
--- OUTSIDE RECORDS SUMMARY | ~2020-07-19 | XMS | Encounter Summary ---
Demographics + + + | Address | [address] | | | [place] [address] | + + + | Home Phone | | + + + | Preferred Language | Unknown | + + + | Marital Status | | + + + | Pentecostal Affiliation | NON | + + + | Race | or | + + + | Ethnic Group | Not or | + + + Author + + + | Author | [facility] | + + + | Organization | [facility] [employer] [facility] | + + + | Address | Unknown | + + + | Phone | Unavailable | + + + Support + + +---------+ + | Name | Relationship | Address | Phone | + + +---------+ + | Ruby Au | ECON | Unknown | | + + +---------+ + Care Team Providers + +------+ + | Care Bi Lead Name | Role | Phone | + [...] | | | | | [facility] [facility] | [address] | | | | | Health and Healing, | [place], [place] | | | | | | [address] | | | | | Floor [place], [place] | | | | | | [address] | | | | | | [phone] | | | +--------+ + + + [...]
--- OUTSIDE RECORDS SUMMARY | ~2020-07-19 | XMS | Encounter Summary ---
Demographics + + + | Address | [address] | | | [place] [address] | + + + | Home Phone | | + + + | Preferred Language | Unknown | + + + | Marital Status | | + + + | Rastafarian Affiliation | Unknown | + + + | Race | or | + + + | Ethnic Group | Not or | + + + Author + + + | Author | [facility] | | | and [place] | + + + | Organization | [facility] | | | [...] Team Providers + +------+ + | Care Investment Sales Assistant Name | Role | Phone | + +------+ + PCP | Unavailable | + +------+ + Encounter Details +--------+ + + + + | Date | Type | Department | Care Team | Description | +--------+ + + + + | 10/25/ | Hospital | [facility] | | | | 1991 | Encounter | MED CTR EMERGENCY | | | | | | CENTER [address] | | | | | | [place] | | | | | | [address] | | | | | | [phone] | | | +--------+ + + + [...]
--- OUTSIDE RECORDS SUMMARY | ~2020-07-19 | XMS | Encounter Summary ---
Demographics + + + | Address | [address] | | | [place] [address] | + + + | Home Phone | | + + + | Preferred Language | Unknown | + + + | Marital Status | | + + + | Hindu Affiliation | Unknown | + + + | Race | or | + + + | Ethnic Group | Not or | + + + Author + + + | Author | [facility] | | | and [place] | + + + | Organization | [facility] [...] + +------+ + | Care Human Resources Department Supervisor Name | Role | Phone | + +------+ + PCP | Unavailable | + +------+ + Encounter Details +--------+ + + + + | Date | Type | Department | Care Team | Description | +--------+ + + + + | 07/12/ | Hospital | [facility] | Conversion | | | 2010 | Encounter | [facility] | Transaction, | | | | | EMERGENCY CENTER | Provider Unknown | | | | | [address] | [phone] | | | | | [place] | | | | | | [address] | | | | | | [phone] | | | +--------+ + + + [...]
--- OUTSIDE RECORDS SUMMARY | ~2020-07-19 | XMS | Encounter Summary ---
Demographics + + + | Address | [address] | | | [place] [address] | + + + | Home Phone | | + + + | Preferred Language | Unknown | + + + | Marital Status | | + + + | Advent Affiliation | Unknown | + + + | Race | or | + + + | Ethnic Group | Not or | + + + Author + + + | Author | [facility] | | | and [place] | + + + | Organization | [facility] | | | [...] Team Providers + +------+ + | Care Traveling Sales Representative Name | Role | Phone | + +------+ + PCP | Unavailable | + +------+ + Encounter Details +--------+ + + + + | Date | Type | Department | Care Team | Description | +--------+ + + + + | 10/27/ | Hospital | [facility] | | | | 1990 | Encounter | [facility] EM[facility] | | | | | | CENTER [address] | | | | | | [place] | | | | | | [address] | | | | | | [phone] | | | +--------+ + + + [...]
--- OUTSIDE RECORDS SUMMARY | ~2020-07-19 | XMS | Encounter Summary ---
Demographics + + + | Address | [address] | | | [place] [address] | + + + | Home Phone | | + + + | Preferred Language | Unknown | + + + | Marital Status | | + + + | Catholic Affiliation | NON | + + + | Race | or | + + + | Ethnic Group | Not or | + + + Author + + + | Author | [facility] [employer] [facility] | + + + | Organization | [facility] [employer] [facility] | + + + | Address | Unknown | + + + | Phone | Unavailable | + + + Support + + +---------+ + | Name | Relationship | Address | Phone | + + +---------+ + | Ruby Au | ECON | Unknown | | + + +---------+ + Care Team Providers + +------+ + | Care Parts Washer Name | Role | Phone | + +------+ + | Brenden Benavides MD | PCP | | + +------+ + Encounter Details +--------+ + + + + | Date | Type | Department | Care Team | Description | +--------+ + + + + | 02/22/ | Telephone | [facility] | Brad Currie MD | | | 2006 | | [place] | | | | | | Neuro-Ophthalmology | | | | | | [address] [facility] | | | | | | Mailcode: PATTI | | | | | | [place] [address] | | | | | | [phone] | | | +--------+ + + + [...] this encounter Miscellaneous Notes Telephone Encounter - Sergio Zhu - 02/22/2007 2:21 PM PDTPatient recently howell d procedure with in Oculoplastics. I spoke with Oculoplastics and thought they would be best to return this call as there was a question of infection at last visit. A tech from [employer] will be calling this patient. Sergio Alicia Neuro Airfield Operations Specialist for MD Julieta Nielson MD Jacqueline Holodak wrote: Sergio, Please call patient - she says she has a green discharge coming form her eye & some pain. Thanks, Taryn documented in th is encounter Plan of Treatment Not on filedocumented as of this encounter Visit Diagnoses Not on filedocumented in this encounter"
--- OUTSIDE RECORDS SUMMARY | ~2020-07-19 | XMS | Clinical Summary ---
Demographics + + + | Address | [address] | | | [place] [address] | + + + | Home Phone | | + + + | Preferred Language | Unknown | + + + | Marital Status | | + + + | Lutheran Affiliation | Unknown | + + + | Race | or | + + + | Ethnic Group | Not or | + + + Author + + + | Author | [facility] | | | and [place] | + + + | Organization | [facility] | | | [...] Providers + +------+ + | Care Video Recorder Mechanic Name | Role | Phone | + +------+ + | Amanda Herzog PA-C | PCP | | + +------+ + Allergies + + + + + + | Active Allergy | Reactions | Severity | Noted | Comments | | | | | Date | | + + + + + + | Amoxicillin-Pot | Nausea And Vomiting | Low | 03/03/20 | | | Clavulanate | | | 13 | | + + + + + + | Clavulanic Acid | Nausea And Vomiting | | 01/03/20 | | | | | | 19 | | + + + + + + | Cephalexin | Rash | Medium | 05/27/20 | | | | | | 17 | | + + + + + + | Codeine | Hives | High | 03/03/20 | | | | | | 13 | | + + + + + + | Lamotrigine | Hives | Medium | 05/27/20 | Suicidal ideation | | | | | 17 | | + + + + + + | Morphine | Nausea Only | Medium | 03/13/20 | | | | | | 13 | | + + + + + + | Paroxetine | | | 06/17/20 | | | | | | 17 | | + + + + + + | Sumatriptan | Rash | Low | 08/01/20 | Had rxn w/ other | | | | | 08 | meds. 2nd time no | | | | | | rxn | + + + + + + | Tramadol | Hives | High | 05/26/20 | | | | | | 17 | | + + + + + + | Venlafaxine | Other (See Comments) | Medium | 05/27/20 | Depression | | | | | 17 | | + + + + + + Medications + + + +---------+------+------+-------+ | Medication | Sig | Dispensed | Refills | Star | End | Statu | | | | | | t | Date | s | | | | | | Date | | | + + + +---------+------+------+-------+ | amitriptyline | Take 200 mg by mouth | | 0 | | | Activ | | (ELAVIL) 50 mg | nightly. | | | | | e | | tablet | | | | | | | + + + +---------+------+------+-------+ | | Place 1 tablet under | | 0 | | | Activ | | buprenorphine-naloxo | the tongue. As | | | | | e | | ne (SUBOXONE) 8-2 mg | directed | | | | | | | SL tablet | | | | | | | + + + +---------+------+------+-------+ | losartan (COZAAR) | Take 100 mg by mouth | | 0 | | | Activ | | 100 MG tablet | every morning. | | | | | e | + + + +---------+------+------+-------+ | metFORMIN | Take 1,000 mg by | | 0 | | | Activ | | (GLUCOPHAGE-XR) 500 | mouth Daily (with | | | | | e | | mg 24 hr tablet | dinner). | | | | | | + + + +---------+------+------+-------+ | omeprazole | Take 20 mg by mouth | | 0 | | | Activ | | (PRILOSEC) 20 mg | every 12 hours. | | | | | e | | capsule | | | | | | | + + + +---------+------+------+-------+ | methocarbamol | Take 500 mg by mouth | | 0 | | | Activ | | (ROBAXIN) 500 mg | 3 times daily as | | | | | e | | tablet | needed for Muscle | | | | | | | | spasms. | | | | | | + + + +---------+------+------+-------+ | Naproxen (NAPROSYN | Take 500 mg by mouth | | 0 | | | Activ | | PO) | Daily. | | | | | e | + + + +---------+------+------+-------+ | OMEPRAZOLE PO | Take 20 mg by mouth | | 0 | | | Activ | | | 2 times daily. | | | | | e | + + + +---------+------+------+-------+ | acetaminophen | Take 500 mg by mouth | | 0 | | | Activ | | (TYLENOL) 500 mg | Daily as needed for | | | | | e | | tablet | Pain. 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 | + + + | Continuous opioid dependence | 01/03/2019 | + + + | Left against medical advice | 01/03/2019 | + + + | Opioid dependence | 01/03/2019 | + + + | Thrombophlebitis of superficial veins of upper extremities | 01/03/2019 | + + + | Cutaneous abscess | 12/19/2017 | + + + | Abnormal vaginal bleeding | 05/27/2017 | + + + | Acute low back pain | 05/27/2017 | + + + | Anxiety and depression | 05/27/2017 | + + + | Chronic pain | 05/27/2017 | + + + | Essential hypertension, benign | 05/27/2017 | + + + | IV drug abuse | 05/27/2017 | + + + | Type 2 diabetes mellitus | 05/27/2017 | + + + | HTN (hypertension) | 03/26/2013 | + + + | PTSD (post-traumatic stress disorder) | 03/26/2013 | + + + | Type II or unspecified type diabetes mellitus without mention of | 03/26/2013 | | complication, not stated as uncontrolled | | + + + | Bronchitis | 01/30/2007 | + + + | Pseudotumor cerebri | 09/05/2006 | + + + Immunizations + + + + | Name | Administration Dates | Next Due | + + + + | INFLUENAZ PF | 11/03/2011 | | | TRIVALENT | | | | INTRADERMAL | | | + + + + | INFLUENZA PF | 08/26/2015, 09/22/2010 | | | TRIVALENT(PED/ADOL/A | | | | DULAguila)CHRIST | | | + + + + | TDAP, (ADOL/ADULT) | 03/25/2014 | | + + + + Family History + + + + + | Medical History | Relation | Name | Comments | + + + + + | No known problems | Mother | Syvana | | | | | Diamond | | | | | [place] | | + + + + + + + +--------+ + | Relation | Name | Status | Comments | + + +--------+ + | Mother | Syvana | Alive | | | | Diamond | | | | | [place] | | | + + +--------+ + Social History + + + +--------+------+ | Tobacco Use | Types | Packs/Day | Years | Date | | | | | Used | | + + + +--------+------+ | Current Every Day | Cigarettes | 1 | | | | Smoker | | | | | + + + +--------+------+ + +---+---+---+ | Smokeless Tobacco: | | | | | Never Used | | | | + +---+---+---+ + + +---------+ + | Alcohol Use | Drinks/Week | oz/Week | Comments | + + +---------+ + | Yes | | | Occasionally | + + +---------+ + + + + | Sex Assigned at | Date Recorded | | | | + + + | Not on file | | + + + Last Filed Vital Signs + + + + + | Vital Sign | Reading | Time Taken | Comments | + + + + + | Blood Pressure | 110/72 | 01/03/2019 1:04 PM | | | | | PST | | + + + + + | Pulse | 88 | 01/03/2019 1:04 PM | | | | | PST | | + + + + + | Temperature | 36.9 C (98.4 F) | 05/27/2017 5:56 PM | | | | | PDT | | + + + + + | Respiratory Rate | 20 | 05/27/2017 5:56 PM | | | | | PDT | | + + + + + | Oxygen Saturation | - | - | | + + + + + | Inhaled Oxygen | - | - | | | Concentration | | | | + + + + + | Weight | 113.4 kg (250 lb) | 01/03/2019 1:04 PM | | | | | PST | | + + + + + | Height | 165.1 cm (5' 5") | 01/03/2019 1:04 PM | | | | | PST | | + + + + + | Body Mass Index | 41.6 | 01/03/2019 1:04 PM | | | | | PST | | + + + + + Plan of Treatment + + + + + | Health Maintenance | Due Date | Last | Comments | | | | Done | | + + + + + | Hepatitis C | | | | | Screening | 5 | | | + + + + + | Medication | | | | | Management | 5 | | | + + + + + | Vaccine: | | | | | Pneumococcal 19-64 | 1 | | | | (1 of 1 - PPSV23) | | | | + + + + + | Diabetic Eye Exam | | | | | | 3 | | | + + + + + | Diabetic Foot Exam | | | | | | 3 | | | + + + + + | Cervical Cancer | | | | | Screening (Pap) | 5 | | | + + + + + | Hemoglobin A1c | | 05/27/20 | | | Screening | 7 | 17 | | + + + + + | Med Mgmt: HBA1C | | 05/27/20 | | | | 7 | 17 | | + + + + + | Med Mgmt: Cr | | 05/27/20 | | | | 8 | 17, | | | | | 05/27/20 | | | | | 17 | | + + + + + | Med Mgmt: K | | 05/27/20 | | | | 8 | 17, | | | | | 05/27/20 | | | | | 17 | | + + + + + | Med Mgmt: eGFR | | 05/27/20 | | | | 8 | 17, | | | | | 05/27/20 | | | | | 17 | | + + + + + | Statin Therapy | | | | | (optimal intensity) | 8 | | | + + + + + | Vaccine: Influenza | | 08/26/20 | | | (#1) | 0 | 15, | | | | | 11/03/20 | | | | | 11, | | | | | 09/22/20 | | | | | 10 | | + + + + + | Vaccine: | | 03/25/20 | | | Dtap/Tdap/Td (2 - | 4 | 14 | | | Td) | | | | + + + + + Results Not on filefrom Last 3 Months Insurance + +--------+ +--------+ +---------+--------+ | Payer | Benefi | Subscriber | Effect | Phone | Address | Type | | | t Plan | ID | greg | | | | | | / | | Dates | | | | | | Group | | | | | | + +--------+ +--------+ +---------+--------+ | [place] | MEDICA | [id number] | 11/09/ | [phone] | | Med[place] | | | [place] | | 2018-P | 2 | | id | | | PLUS | | resent | | | | + +--------+ +--------+ +---------+--------+ | [facility] | IHS | [id number] | 11/08/ | | | Indemn | | SERVICE | YELLOW | | 2018-P | | | ity | | | HAWK | | resent | | | | + +--------+ +--------+ +---------+--------+ + +--------+ +--------+ + + | Guarantor Name | Accoun | Relation to | Date | Phone | Billing Address | | | t Type | Patient | of | | | | | | | | | | + +--------+ +--------+ + + | Annabella Au | Person | Self [birth year] | [address] | | | al/Fam | | 1975 | [phone] | [place] [address] | | | rene | | | 5 (Home) | | + +--------+ +--------+ + + Advance Directives + + + + + | Type | Date Recorded | Patient | Explanation | | | | Knit Goods Mender | | + + + + + | Power of | | | | | Manufacturing Manager | | | | + + + + + | Advance | | | | | Directive | | | | + + + + +
--- OUTSIDE RECORDS SUMMARY | ~2020-07-19 | XMS | Encounter Summary ---
Demographics + + + | Address | [address] | | | [place] [address] | + + + | Home Phone [...] + + + | Author | [facility] | + + + | Organization | [facility] [employer] [facility] | + + + | Address | Unknown | + + + | Phone | Unavailable | + + + Support + + +---------+ + | Name | Relationship | Address | Phone | + + +---------+ + | Ruby Au | ECON | Unknown | | + + +---------+ + Care Team Providers + +------+ + | Care Bearing Machine Operator Name | Role | Phone [...] | | | | | [facility] for | [address] | | | | | Health and Healing, | [place], [place] | | | | | | [address] | | | | | Floor [place], [place] | | | | | | [address] | | | | | | [phone] | | | +--------+ + + + [...] Telephone Encounter - Kiki Rosen - 08/23/2008 1:19 PM PDTLeft message for patient to call me back. L documented in this encou nter Plan of Treatment Not on filedocumented as of this encounter Visit Diagnoses Not on filedocumented in this encounter"
--- OUTSIDE RECORDS SUMMARY | ~2020-07-19 | XMS | Encounter Summary ---
Demographics + + + | Address | [address] | | | [place] [address] | + + + | Home Phone | | + + + | Preferred Language | Unknown | + + + | Marital Status | | + + + | Protestant Affiliation | NON | + + + | Race | or | + + + | Ethnic Group | Not or | + + + Author + + + | Author | [facility] | + + + | Organization | [facility] | + + + | Address | Unknown | + + + | Phone | Unavailable | + + + Support + + +---------+ + | Name | Relationship | Address | Phone | + + +---------+ + | Ruby Au | ECON | Unknown | | + + +---------+ + Care Team Providers + +------+ + | Care Rn Enterostomal Name | Role | Phone | + [...] | | | | | [facility] | [address] | | | | | Health and Healing, | [place], [place] | | | | | Building | [address] | | | | | Floor [place], [place] | | | | | | [address] | | | | | | [phone] | | | +--------+ + + + [...] Miscellaneous Notes Telephone Encounter - Kiki Rosen PA - 12/24/2008 3:17 PM PSTPt with CAPONE, no n/v or ot her neurologic issues. Went over signs of shunt malfunction.Electronically signed by FLORA Alfaro at 009 3:17 PM PSTdocumented in this encounter Plan of Treatment Not on filedocumented as of this encounter Visit Diagnoses Not on filedocumented in this encounter"
--- OUTSIDE RECORDS SUMMARY | ~2020-07-19 | XMS | Encounter Summary ---
Demographics + + + | Address | [address] | | | [place] [address] | + + + | Home Phone | | + + + | Preferred Language | Unknown | + + + | Marital Status | | + + + | Quaker Affiliation | Unknown | + + + | Race | or | + + + | Ethnic Group | Not or | + + + Author + + + | Author | [facility] | | | and [place] | + + + | Organization | [facility] | | [...] Team Providers + +------+ + | Care Lung Gun Operator Name | Role | Phone | + +------+ + PCP | Unavailable | + +------+ + Encounter Details +--------+ + + + + | Date | Type | Department | Care Team | Description | +--------+ + + + + | 08/10/ | Hospital | [facility] | | | | 1990 | Encounter | [facility] | | | | | | CENTER [address] | | | | | | [place] | | | | | | [address] | | | | | | [phone] | | | +--------+ + + + [...]
--- OUTSIDE RECORDS SUMMARY | ~2020-07-19 | XMS | Encounter Summary ---
Demographics + + + | Address | [address] | | | [place] [address] | + + + | Home Phone [...] + + | Author | [facility] | + + + | Organization | [facility] | + + + | Address | Unknown | + + + | Phone | Unavailable | + + + Support + + +---------+ + | Name | Relationship | Address | Phone | + + +---------+ + | Ruby Au | ECON | Unknown | | + + +---------+ + Care Team Providers + +------+ + | Care Certified Medical Coding Specialist Name | Role | Phone | [...] Cerebri; | | 2005 | Visit | [place] | | Common Migraine | | | | Neuro-Ophthalmology | | without Mention of | | | | [address] | | Intractable Migraine | | | | Mailcode: CEI | | | | | | [place] [address] | | | | | | [phone] | | | +--------+---------+ + + + [...] 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
--- OUTSIDE RECORDS SUMMARY | ~2020-07-19 | XMS | Encounter Summary ---
Demographics + + + | Address | [address] | | | [place] [address] | + + + | Home Phone | | + + + | Preferred Language | Unknown | + + + | Marital Status | | + + + | Christianity Affiliation | NON | + + + | Race | or | + + + | Ethnic Group | Not or | + + + Author + + + | Author | [facility] | + + + | Organization | [facility] [...] Team Providers + +------+ + | Care Floatlight Powder Mixer Name | Role | Phone | + +------+ + | Yeison Smims MD | PCP | Unavailable | + +------+ + Encounter Details +--------+ + + + + | Date | Type | Department | Care Team | Description | +--------+ + + + + | 04/06/ | Telephone | Neurosurgery at | [place], | | | 2010 | | [facility] | MD [address] | | | | | kiran [facility] | [facility] | | | | | Health and Healing, | [address] [place], [place] | | | | | | [address] | | | | | floor [place], [place] | [phone] | | | | | [address] | | | | | | [phone] | | | +--------+ + + + [...] this encounter Miscellaneous Notes Telephone Encounter - Chad Ellis MD - 04/06/2011 7:58 PM PDTPatient called to ask how long a post-LP headache lasts. Last time she had a high volume LP her CAPONE lasted 5-6 day s. I advised her that a post-LP duration is usually at least a few hours, but can last longe r depending on volume of tap. Patient reports that she is going to have a LP soon and was wo ndering about this question. Chad Ellis MD documented in this encounter Plan of Treatment Not on filedocumented as of this encounter Visit Diagnoses Not on filedocumented in this encounter"
--- OUTSIDE RECORDS SUMMARY | ~2020-07-19 | XMS | Encounter Summary ---
Demographics + + + | Address | [address] | | | [place] [address] | + + + | Home Phone [...] + | Author | [facility] | + + + | Organization | [facility] | + + + | Address | Unknown | + + + | Phone | Unavailable | + + + Support + + +---------+ + | Name | Relationship | Address | Phone | + + +---------+ + | Ruby Au | ECON | Unknown | | + + +---------+ + Care Team Providers + +------+ + | Care Grades 1 Thru 5 Teacher Name | Role | Phone | + +------+ + | Yeison Simms MD | PCP | Unavailable | + +------+ + Reason for Visit + +--------+ + | Reason | Onset | Comments | | | Date | | + +--------+ + | CAPONE - Headache | 10/29/ | | | | 2008 | | + +--------+ + Encounter Details +--------+ + + + + | Date | Type | Department | Care Team | Description | +--------+ + + + + | 10/29/ | Telephone | Neurosurgery at | Sam Pedroza MD | CAPONE - Headache | | 2007 | | [facility] [address] | [address] | | | | | Ave Center for | [place], [place] | | | | | Health and Healing, | [address] | | | | | Building | [phone] | | | | | floor [place], [place] | | | | | | [address] | | | | | | [phone] | | | +--------+ + + + [...] Notes Telephone Encounter - Kiki Rosen - 10/29/2008 8:15 PM PSTSpoke with patient, CAPONE 2 day s, settles down when she lays down. Went to urgent care, no other issues. Nausea goes away when she lays down. It's not terrible, but it's just there. Taking aleve. Not sure if that's helping. She has LP shunt. She does not sound like she needs to be right away. I will call her tomorrow to see how she feels. elephone Encounter - Mandi Mcdonnell - 10/29/2008 11:37 AM PSTPt c alled today c/o a CAPONE and earache for the last two days. She was just seen in an urgent care facility and told she does not have an ear infection. Denies vomiting or balance issues but states she has been nauseous x 2 days. Please call and advise. documented in this encounter Plan of Treatment Not on filedocumented as of this encounter Visit Diagnoses Not on filedocumented in this encounter"
--- OUTSIDE RECORDS SUMMARY | ~2020-07-19 | XMS | Encounter Summary ---
Demographics + + + | Address | [address] | | | [place] [address] | + + + | Home Phone | | + + + | Preferred Language | Unknown | + + + | Marital Status | | + + + | Holiness Affiliation | Unknown | + + + | Race | or | + + + | Ethnic Group | Not or | + + + Author + + + | Author | [facility] | | | and [place] | + + + | Organization | [facility] | | | [...] Team Providers + +------+ + | Care Cook Soup Name | Role | Phone | + +------+ + PCP | Unavailable | + +------+ + Encounter Details +--------+ + + + + | Date | Type | Department | Care Team | Description | +--------+ + + + + | 10/10/ | Hospital | [facility] | | | | 1991 | Encounter | [facility] | | | | | | [facility] [address] | | | | | | [place], | | | | | | [place] [address] | | | | | | [phone] | | | +--------+ + + + [...]
--- OUTSIDE RECORDS SUMMARY | ~2020-07-19 | XMS | Encounter Summary ---
Demographics + + + | Address | [address] | | | [place] [address] | + + + | Home Phone | | + + + | Preferred Language | Unknown | + + + | Marital Status | | + + + | Zoroastrianism Affiliation | NON | + + + | Race | or | + + + | Ethnic Group | Not or | + + + Author + + + | Author | [facility] | + + + | Organization | [facility] | + + + | Address | Unknown | + + + | Phone | Unavailable | + + + Support + + +---------+ + | Name | Relationship | Address | Phone | + + +---------+ + | Ruby Au | ECON | Unknown | | + + +---------+ + Care Team Providers + +------+ + | Care Conditioning Yard Supervisor Name | Role | Phone | [...] | | Ophthalmology | | Non-[facility] | [place], | | | | | | Epic Dept | Graciela Guardado MD | | | | | | | [address] | | | | | | [address] | | | | | | | [place], [place] | | | | | | | [address] | | | | | | | Phone: | | | | | | | [phone] | | | | | | | Fax: | | | | | | | [phone] | +--------+--------+ + + + + Encounter Details +--------+---------+ + + + | Date | Type | Department | Care Team | Description | +--------+---------+ + + + | 03/26/ | Office | [facility] | Mo Hood | Pseudotumor cerebri | | 2012 | Visit | [place]/Ophthalmol Leif Amador MD | (Primary Dx); | | | | ogy at [facility] [address] | | Depression; Type II | | | | [address] [facility] for | | or unspecified type | | | | Health and Healing, | | diabetes mellitus | | | | Building | | without mention of | | | | Floor [place], [place] | | complication, not | | | | [address] | | stated as | | | | [phone] | | uncontrolled; PTSD | | | [...] HPI: 37 y.o. year old female from [place] : Patient presents with: IIH - Idiopathic [...] because they live 4 hours away in [facility]. Tobacco use: reports that she has been [...] Right Left Disc 1+ Optic disc edema, +DOCTOR OF PODIATRY 2+ Optic disc edema, RNFL whitening at the superonasal borde r of the disc. There is spontaneous pulsing of the entire disc head with heart beat. C/D Ratio 0.1 0.1 Macula Normal Normal Vessels Engorged. tortuous Engorged. tortuous Periphery Normal Normal Neuro/Psych Oriented x3: Yes Mood/Affect: Normal See [facility] Ophthalmology Exam Module for additional exam [...] Dr. Lux. Mo Hood MD Resident Physician [facility], PGY-2 [facility] Physician: Mo Hood MD, 03/26/2013 documented in [...]
--- OUTSIDE RECORDS SUMMARY | ~2020-07-19 | XMS | Encounter Summary ---
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 Background: Significant Past medical History: Lumbar shunt in 2007 placed here. 40 lb weight gain in 4 days. Increase leg swelling and increase abdominal distention Back discomfort. CAPONE and visual changes, blurry and tunnel vision. Past Medical History Pseudotumor Cerebri Bronchitis Assessment: possible shunt failture? Pertinent Exam Findings: NO focal neuro deficits Obese Mild abd discomfort 1+ BLE edema below the knee. Labs: Results for orders placed during the hospital encounter of 03/13/13 INR Component Value Range INR 0.95 0.90-1.20 INR COMPLETE METABOLIC SET (NA,K,CL,CO2,BUN,CREAT,GLUC,CA,AST,ALT,BILI TOTAL,ALK PHOS,ALB,PROT TOTAL) Component Value Range GLUCOSE, PLASMA (LAB) 119 (*) 60-99 mg/dL BUN, PLASMA (LAB) 10 6-20 mg/dL CREATININE PLASMA (LAB) 0.83 0.60-1.10 mg/dL EGFR - COLOMBIAN >60 >60 mL/min EGFR NON -COLOMBIAN >60 >60 mL/min SODIUM, PLASMA (LAB) 141 136-145 mmol/L POTASSIUM, PLASMA (LAB) 3.7 3.4-5.0 mmol/L CHLORIDE, PLASMA (LAB) 103 97-108 mmol/L TOTAL CO2, PLASMA (LAB) 32 21-32 mmol/L CALCIUM, PLASMA (LAB) 9.1 8.6-10.2 mg/dL BILIRUBIN TOTAL 0.2 (*) 0.3-1.2 mg/dL TOTAL PROTEIN, PLASMA (LAB) 6.9 6.1-7.9 g/dL ALBUMIN, PLASMA (LAB) 3.2 (*) 3.5-4.7 g/dL ALK PHOS 63 42-98 U/L AST(SGOT) 29 15-41 U/L ALT (SGPT) 23 12-60 U/L ANION GAP(ALB CORRECTED) 8 4-11 mmol/L POTASSIUM CMNT No Hemo BILI T CMNT No Hemo AST CMNT No Hemo ANION GAP 6 TROPONIN, POC Component Value Range TROPONIN, POC 0.00 0.0 - 0.49 ng/mL NT-PRO BNP Component Value Range NT-PRO BNP 102 <125 pg/mL CBC AND AUTO DIFF Component Value Range WBC COUNT 9.3 4.4-11.0 K/cu mm RED CELL COUNT 4.10 4.00-5.20 M/cu mm HEMOGLOBIN 11.5 (*) 12.0-16.0 g/dL HEMATOCRIT 35.3 (*) 36.0-46.0 % MCV 86.1 80.0-96.0 fL MCHC 32.6 (*) 33.4-35.5 g/dL RDW 16.7 (*) 11.5-15.0 % PLATELET COUNT 204 150-400 K/cu mm NEUTROPHIL % 59 50-70 % LYMPHOCYTE % 31 18-42 % MONOCYTE % 6 2-8 % EOS % 4 (*) 1-3 % BASO % 0 0-2 % NEUTROPHIL # 5.5 1.8-7.7 K/cu mm LYMPHOCYTE # 2.9 1.0-4.8 K/cu mm MONOCYTE # 0.5 0.0-0.8 K/cu mm EOS # 0.4 0.0-0.5 K/cu mm BASO # 0.0 0.0-0.2 K/cu mm Imaging: CT head scan Shunt series Consults: NSG - Recommendations: Consult NSG Head CT obtained showed no indication of fx, hemorrhage, mass, midline Subsequent ED Course: NSG consulted - no acute neurosurgical indications. Neurosurgery had seen patient earlier in her work up. They were recontacted, and given the negative CT and unchanged papilledema, felt there were no acute issues warranting intervention from their team. Ophtho - +chronic papilledema recommend Diamox and f/u at [facility] in 1-2 weeks. Patient continues to be hemodynamically stable. Symptoms improved. Given negative workup an d stable vitals signs, I feel patient is safe to go home and f/u with PCP. Will d/c home with Diamox and oxycodone. Patient is comfortable with the d/c plan. Patient informed to follow up with primary care physician for continued symptom management. Patient is to return to ED for new or worsening symptoms including fever, nausea/vomiting, increasing pain, chest pain, shortness of breath, increasing headache or confusion. Medications HYDROmorphone (aka DILAUDID) injection 1 mg (not administered) Assessment: Headache Pseudotumor cerebri Plan: D/c home F/u with primary care provider in 1-2 days or low cost clinic Return precautions given F/u with [facility] in 1-2 weeks Diomox 500mg BID Oxycodone Amol Altman MD R2 Emergency Medicine Resident gapito, Amol - 013 5:04 PM PDT 5:04 PM, AMOL ALTMAN MD, Resident Note Sign out from Dr. Lopez and Dr. Whyte at 5:04 PM. Situation: In summary, Annabella Au is a 37 y.o. 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 Background: Significant Past medical History: Lumbar shunt in 2007 placed here. 40 lb weight gain in 4 days. Increase leg swelling and increase abdominal distention Back discomfort. CAPONE and visual changes, blurry and tunnel vision. Past Medical History Pseudotumor Cerebri Bronchitis Assessment: possible shunt failture? Pertinent Exam Findings: NO focal neuro deficits Obese Mild abd discomfort 1+ BLE edema below the knee. Labs: Results for orders placed during the hospital encounter of 03/13/13 INR Component Value Range INR 0.95 0.90-1.20 INR COMPLETE METABOLIC SET (NA,K,CL,CO2,BUN,CREAT,GLUC,CA,AST,ALT,BILI TOTAL,ALK PHOS,ALB,PROT TOTAL) Component Value Range GLUCOSE, PLASMA (LAB) 119 (*) 60-99 mg/dL BUN, PLASMA (LAB) 10 6-20 mg/dL CREATININE PLASMA (LAB) 0.83 0.60-1.10 mg/dL EGFR - COLOMBIAN >60 >60 mL/min EGFR NON -COLOMBIAN >60 >60 mL/min SODIUM, PLASMA (LAB) 141 136-145 mmol/L POTASSIUM, PLASMA (LAB) 3.7 3.4-5.0 mmol/L CHLORIDE, PLASMA (LAB) 103 97-108 mmol/L TOTAL CO2, PLASMA (LAB) 32 21-32 mmol/L CALCIUM, PLASMA (LAB) 9.1 8.6-10.2 mg/dL BILIRUBIN TOTAL 0.2 (*) 0.3-1.2 mg/dL TOTAL PROTEIN, PLASMA (LAB) 6.9 6.1-7.9 g/dL ALBUMIN, PLASMA (LAB) 3.2 (*) 3.5-4.7 g/dL ALK PHOS 63 42-98 U/L AST(SGOT) 29 15-41 U/L ALT (SGPT) 23 12-60 U/L ANION GAP(ALB CORRECTED) 8 4-11 mmol/L POTASSIUM CMNT No Hemo BILI T CMNT No Hemo AST CMNT No Hemo ANION GAP 6 TROPONIN, POC Component Value Range TROPONIN, POC 0.00 0.0 - 0.49 ng/mL NT-PRO BNP Component Value Range NT-PRO BNP 102 <125 pg/mL CBC AND AUTO DIFF Component Value Range WBC COUNT 9.3 4.4-11.0 K/cu mm RED CELL COUNT 4.10 4.00-5.20 M/cu mm HEMOGLOBIN 11.5 (*) 12.0-16.0 g/dL HEMATOCRIT 35.3 (*) 36.0-46.0 % MCV 86.1 80.0-96.0 fL MCHC 32.6 (*) 33.4-35.5 g/dL RDW 16.7 (*) 11.5-15.0 % PLATELET COUNT 204 150-400 K/cu mm NEUTROPHIL % 59 50-70 % LYMPHOCYTE % 31 18-42 % MONOCYTE % 6 2-8 % EOS % 4 (*) 1-3 % BASO % 0 0-2 % NEUTROPHIL # 5.5 1.8-7.7 K/cu mm LYMPHOCYTE # 2.9 1.0-4.8 K/cu mm MONOCYTE # 0.5 0.0-0.8 K/cu mm EOS # 0.4 0.0-0.5 K/cu mm BASO # 0.0 0.0-0.2 K/cu mm Imaging: CT head scan Shunt series Consults: NSG - Recommendations: Consult NSG Head CT obtained showed no indication of fx, hemorrhage, mass, midline Subsequent ED Course: NSG consulted - no acute neurosurgical indications. Ophtho - +chronic papilledema recommend diomox and f/u at [facility] in 1-2 weeks. Patient continues to be hemodynamically stable. Symptoms improved. Given negative workup an d stable vitals signs, I feel patient is safe to go home and f/u with PCP. Will d/c home with Diomox and oxycodone. Patient is comfortable with the d/c plan. Patient informed to follow up with primary care physician for continued symptom management. Patient is to return to ED for new or worsening symptoms including fever, nausea/vomiting, increasing pain, chest pain, shortness of breath, increasing headache or confusion. Medications HYDROmorphone (aka DILAUDID) injection 1 mg (not administered) Assessment: Headache Pseudotumor cerebri Plan: D/c home F/u with primary care provider in 1-2 days or low cost clinic Return precautions given F/u with [facility] in 1-2 weeks Diomox 500mg BID Oxycodone Amol Altman MD R2 Emergency Medicine Resident Marcelo Varma R N - 03/13/2013 12:00 PM PDTPatient c/o SOB, CP and weight gain of 41 lbs over 1 week per pat iedanish. Halle Posey EMT - 03/13/2013 11:52 AM PDTPt was scoped for [facility] on Tuesday. Electronically josiah d by SAURABH Anderson at 03/13/2013 11:52 AM Monica Posey EMT - 03/13/2013 11: 45 AM PDTPt CO head pain, vision disturbance, nausea, vomiting. 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 Pt states referring hospital says it is out of place. Pt states that she just wants her shunt out. Pt is also co of sever selling in her legs up to her belly. Pt states that she has also had a "wierd" cough. Pt denies a productive cough. Pt states that she has had a significant juliet ght increase. Elisabeth Bella RN - 03/13/2013 11:44 AM PDTPt reports she has CT last Tuesday at [place], states " They said my shunt was dislodged". Pt is a/ox4.Electronically signed by Elisabteh Ortiz RN at 11:44 AM Elisabeth Bella RN - 03/13/2013 11:43 AM PDTPossible BLACK STUDIES PROFESSOR shunt malfunction, CAPONE x4 days. documented in this encounter Miscellaneous Notes Scan - Other, Faculty - 03/15/2013 9:40 AM PDTElectronically signed by Faculty Other at 9:40 AM PDTED Teaching Notes - Abby Whyte MD - 03/13/2013 8:46 PM PDTNo [facility] bessy note - see shared resident/faculty Provider note. D RN Student Note - Ricky Duval RN - 03/13/2013 6:35 PM PDTOptho consult at BS D RN Student Note - Ricky Ramachandran nd, RN - 03/13/2013 6:30 PM PDTPt reports decreased nausea and pain (now 5/10 down f rom 8/10) with zofran and dilaudid. Neuro consult at BS. D RN Student Note - Ricky De Leon RN - 03/13/2013 5:21 P M PDTPt to CT documented i n this encounter Plan of Treatment Not on [...] | | DIP), POC | | | JANEY | | | | | | ZACHARIAH [...] | | DIP), POC | | | MARENZOAM | | | | | | NACHO [...] | | DIP), POC | | | NACHO POINT | [...] | | | POC | | | NACHO, POINT | | [...] + + + | [facility] | [address] | [place], [place] | | | NACHO POINT OF CARE | [address] | [address] | | | TESTS | | | [...] + + + + + | [facility] | [address] | [place] [address] | | | SERVICES, CORE | PARK [...] | | | | | CHRISTIANO TORRES ([id number]) | | | | | | on 03/14/2013 10:35:55 AM | | | | + + + + + + + + | Specimen | + + | | + + + + + | Narrative | Performed At | + + + | Please click | [facility] | | on view image for the detailed interpretation from [facility] results. | CARDIOLOGY | + + + + + + + + | Performing | Address | City/State/Zipcode | Phone Number | | Organization | | | | + + + + + | [facility] | [address] | [place], [place] | | | CARDIOLOGY | [address] | [address] | | + + + + + [...] + + + + | [facility] | [address] | [place], [place] | | | NACHO POINT OF CARE | [facility] | [address] | | | TESTS | | | [...] | + + + + + | [facility] | [address] | [place] [address] | | | SERVICES, CORE | PARK [...] | + + + + + | [facility] | [address] | [place] [address] | | | SERVICES, CORE | SKY [...] | | | LABORATORY | | | COLOMBIAN | | | SERVICES, | | | [...] | + + + + + | [facility] | [address] | [place] [address] | | | SERVICES, CORE | PARK [...] | + + + + + | [facility] | [address] | [place] [address] | | | SERVICES, CORE | PARK [...] + | [place] - [place] - | [address] | [place] [address] | | | [place] | | | | + + + + + RAINBOW HOLD TUBE - RED TOP (03/13/2013 11:52 AM PDT) + + | Specimen | + + | Blood - Blood | + + + + + + + | Performing | Address | City/State/Zipcode | Phone Number | | Organization | | | | + + + + + | [facility] | [address] | [place] [address] | | | SERVICES, CORE | SKY [...]
--- OUTSIDE RECORDS SUMMARY | ~2020-07-19 | XMS | Encounter Summary ---
Demographics + + + | Address | [address] | | | [place] [address] | + + + | Home Phone | | + + + | Preferred Language | Unknown | + + + | Marital Status | | + + + | Restorationism Affiliation | Unknown | + + + [...] Team Providers + +------+ + | Care Reimbursement Rep Name | Role | Phone | + +------+ + PCP | Unavailable | + +------+ + Encounter Details +--------+ + + + + | Date | Type | Department | Care Team | Description | +--------+ + + + + | 06/20/ | Hospital | [facility] | Yovanny Suazo, | | | 1991 | Encounter | [facility] | MD [address] | | | | | HEALTH [facility] [address] | [address] [facility] | | | | | [place], | [place] [address] | | | | | [place] [address] | [phone] | | | | | [phone] | | | +--------+ + + + [...]
--- OUTSIDE RECORDS SUMMARY | ~2020-07-19 | XMS | Encounter Summary ---
Demographics + + + | Address | [address] | | | [place] [address] | + + + | Home Phone | | + + + | Preferred Language | Unknown | + + + | Marital Status | | + + + | Protestant Affiliation | NON | + + + | Race | or | + + + | Ethnic Group | Not or | + + + Author + + + | Author | [facility] | + + + | Organization | [facility] | + + + | Address | Unknown | + + + | Phone | Unavailable | + + + Support + + +---------+ + | Name | Relationship | Address | Phone | + + +---------+ + | Ruby Au | ECON | Unknown | | + + +---------+ + Care Team Providers + +------+ + | Care Tape Maker Name | Role | Phone | [...] Cerebri | | 2006 | Visit | [place] | | (Primary Dx) | | | | Neuro-Ophthalmology | | | | | | [address] [facility] | | | | | | Mailcode: PATTI | | | | | | [place] [address] | | | | | | [phone] | | | +--------+---------+ + + + [...] Referred by: CASIMIRO PAYTON MD [address] [place] [address] Symptoms: Patient feels things are better. Vision [...] Brad Currie MD Neuro-Ophthalmology and Cerebrovascular Disease Furnace Tender of Ophthalmology, Neurology, and Neurosurgery documented in this encounter Plan of Treatment + + +--------+ + + | Name | Type | Priori | Associated Diagnoses | Order Schedule | | | | ty | | | + + +--------+ + + | [place] VISUAL FIELD | Procedures | Routin | Pseudotumor | Ordered: 01/30/2007 | | EXAM,EXTENDED | | e | Cerebri | | + + +--------+ + + documented as of this encounter Visit Diagnoses + + | Diagnosis | + + | Pseudotumor cerebri - Primary Benign intracranial hypertension | + + documented in this encounter"
--- OUTSIDE RECORDS SUMMARY | ~2020-07-19 | XMS | Encounter Summary ---
Demographics + + + | Address | [address] | | | [place] [address] | + + + | Home Phone [...] Author | [facility] | + + + | Organization | [facility] | + + + | Address | Unknown | + + + | Phone | Unavailable | + + + Support + + +---------+ + | Name | Relationship | Address | Phone | + + +---------+ + | Ruby Au | ECON | Unknown | | + + +---------+ + Care Team Providers + +------+ + | Care Medical Records Coordinator Name | Role | Phone | [...] | | | | | [facility] [place] [facility] | [address] | | | | | Health and Healing, | [place], [place] | | | | | | [address] | | | | | Floor [place], [place] | | | | | | [address] | | | | | | [phone] | | | +--------+ + + + [...] 06/04/2009 2:50 PM [facility]Sp[facility]. Having incisional [...]
--- OUTSIDE RECORDS SUMMARY | ~2020-07-19 | XMS | Encounter Summary ---
Demographics + + + | Address | [address] | | | [place] [address] | + + + | Home Phone [...] + + + | Author | [facility] | | | and [place] | + + + | Organization | [facility] | | [...] Team Providers + +------+ + | Care Field Radio Technician Name | Role | Phone | + +------+ + PCP | Unavailable | + +------+ + Encounter Details +--------+ + + + + | Date | Type | Department | Care Team | Description | +--------+ + + + + | 06/22/ | Hospital | [facility] | Yovanny Suazo, | | | 1991 | Encounter | [facility] | MD [address] | | | | | HEALTH [facility] [address] | [address] [facility] | | | | | Sar[place]za [place], | [place] [address] | | | | | [place] [address] | [phone] | | | | | [phone] | | | +--------+ + + + [...]
--- OUTSIDE RECORDS SUMMARY | ~2020-07-19 | XMS | Encounter Summary ---
Demographics + + + | Address | [address] | | | [place] [address] | + + + | Home Phone | | + + + | Preferred Language | Unknown | + + + | Marital Status | | + + + | Hinduism Affiliation | NON | + + + | Race | or | + + + | Ethnic Group | Not or | + + + Author + + + | Author | [facility] | + + + | Organization | [facility] | + + + | Address | Unknown | + + + | Phone | Unavailable | + + + Support + + +---------+ + | Name | Relationship | Address | Phone | + + +---------+ + | Ruby Au | ECON | Unknown | | + + +---------+ + Care Team Providers + +------+ + | Care Furnace Liner Name | Role | Phone | + [...] | | | | | cerebri | [address] | | | | | | Procedures | Ave | | | | | | CONSULT TO | [place], [place] | | | | | | [facility] | [address] | | | | | | | Phone: | | | | | | | [phone] | | | | | | | Fax: | | | | | | | [phone] | | +--------+--------+ + + + + [...] Cerebri | | 2005 | Visit | [facility] | [address] | (Primary Dx) | | | | Rd Mailcode:OP14B | [place], [place] | | | | | [facility] | [address] | | | | | [place], [place] | [phone] | | | | | [address] | | | | | | [phone] | | | +--------+---------+ + + + [...] pressu re. Referral to Dr. Maloney in [place] where a lumboperitoneal shunt was placed and subsequently explanted due to infection and migration of the catheter tip from the peritoneal space. She feels that her symptoms were helped at the time of the placement of the shunt; the head aches and visual problems have worsened since shunt removal. She has opted to come to [facility] rather than to return to [place] based on travel convenience. Review of Systems: [...] brain without; Neuro-ophthalmology consultation. documented in this [facility] Plan of Treatment Not on [...] | | + +---------+ + + | [facility] DEPARTMENT OF | | | | | RADIOLOGY | | | | + +---------+ + + documented in this encounter Visit Diagnoses + + | Diagnosis | + + | Pseudotumor cerebri - Primary Benign intracranial hypertension | + + documented in this encounter
--- OUTSIDE RECORDS SUMMARY | ~2020-07-19 | XMS | Encounter Summary ---
Demographics + + + | Address | [address] | | | [place] [address] | + + + | Home Phone | | + + + | Preferred Language | Unknown | + + + | Marital Status | | + + + | Scientology Affiliation | NON | + + + | Race | or | + + + | Ethnic Group | Not or | + + + Author + + + | Author | [facility] | + + + | Organization | [facility] | + + + | Address | Unknown | + + + | Phone | Unavailable | + + + Support + + +---------+ + | Name | Relationship | Address | Phone | + + +---------+ + | Ruby Au | ECON | Unknown | | + + +---------+ + Care Team Providers + +------+ + | Care Baggage Handling Supervisor Name | Role | Phone | [...] Cerebri | | 2006 | Visit | [place] | | (Primary Dx) | | | | Neuro-Ophthalmology | | | | | | [address] [facility] | | | | | | Mailcode: CE | | | | | | [place] [address] | | | | | | [phone] | | | +--------+---------+ + + + [...] note might be different from the o brandyinal. Neuro-Ophthalmology Return Patient Evaluation 12/19/2006 Referred by: CASIMIRO PAYTON MD [address] [place] [address] Symptoms: She has not been taking her [...] Brad Currie MD Neuro-Ophthalmology and Cerebrovascular Disease Professor Of Biochemistry of Ophthalmology, Neurology, and Neurosurgery documented in this encounter Plan of Treatment + + +--------+ + + | Name | Type | Priori | Associated Diagnoses | Order Schedule | | | | ty | | | + + +--------+ + + | [place] VISUAL FIELD | Procedures | Routin | Pseudotumor | Ordered: 12/19/2006 | | EXAM,EXTENDED | | e | Cerebri | | + + +--------+ + + documented as of this encounter Visit Diagnoses + + | Diagnosis | + + | Pseudotumor cerebri - Primary Benign intracranial hypertension | + + documented in this encounter"
--- OUTSIDE RECORDS SUMMARY | ~2020-07-19 | XMS | Encounter Summary ---
Demographics + + + | Address | [address] | | | [place] [address] | + + + | Home Phone | | + + + | Preferred Language | Unknown | + + + | Marital Status | | + + + | Advent Affiliation | NON | + + + | Race | or | + + + | Ethnic Group | Not or | + + + Author + + + | Author | [facility] | + + + | Organization | [facility] | + + + | Address | Unknown | + + + | Phone | Unavailable | + + + Support + + +---------+ + | Name | Relationship | Address | Phone | + + +---------+ + | Ruby Au | ECON | Unknown | | + + +---------+ + Care Team Providers + +------+ + | Care Salesperson [employer] Name | Role | Phone | + +------+ + | Brenden Benavides MD | PCP | | + +------+ + Reason for Visit + +--------+ + | Reason | Onset | Comments | | | Date | | + +--------+ + | Refill Request | 02/16/ | | | | 2007 | | + +--------+ + Encounter Details +--------+ + + + + | Date | Type | Department | Care Team | Description | +--------+ + + + + | 02/15/ | Telephone | [facility] | Pascual Bermudez [address] | Refill Request | | 2006 | | [place] | [facility] | | | | | Oculoplastics at | Rd [place], [place] | | | | | [facility] [address] | [address] | | | | | [address] | | | | | | [facility] | | | | | | [address] | | | | | | [place] [address] | | | | | | [phone] | | | +--------+ + + + [...] Notes Telephone Encounter - Pascual Bermudez - 02/15/2007 12:25 PM PDTTC from patient. Pain improving slowly, but pt requesting additional Vicodin. Pt notes bump in lateral canthal area that howell s appeared in the past few days. Nonred, nontender. I advised patient to come in to be seen here or by an pershing missile crewmember in [place], but she says she does not have transportation. I will call in Vicodin #20, pt to call immediately if there is any worsening. Called in Vicodin #20 to [place] [facility] 07 8:32 AM PDTdocumented in this encounter Plan of Treatment Not on filedocumented as of this encounter Visit Diagnoses Not on filedocumented in this encounter"
--- OUTSIDE RECORDS SUMMARY | ~2020-07-19 | XMS | Encounter Summary ---
Demographics + + + | Address | [address] | | | [place] [address] | + + + | Home Phone | | + + + | Preferred Language | Unknown | + + + | Marital Status | | + + + | Baptist Affiliation | NON | + + + | Race | or | + + + | Ethnic Group | Not or | + + + Author + + + | Author | [facility] | + + + | Organization | [facility] | + + + | Address | Unknown | + + + | Phone | Unavailable | + + + Support + + +---------+ + | Name | Relationship | Address | Phone | + + +---------+ + | Ruby Au | ECON | Unknown | | + + +---------+ + Care Team Providers + +------+ + | Care Land Classifier Name | Role | Phone | + [...] about [facility]) | | | | [facility] | [place], [place] | | | | | Health and Healing, | [address] | | | | | [facility] | [phone] | | | | | floor [place], [place] | | | | | | [address] | | | | | | [phone] | | | +--------+ + + + [...] She would also like a refill on [place]. Per Dr. Pedroza, pt's may only have [...]
--- OUTSIDE RECORDS SUMMARY | ~2020-07-19 | XMS | Encounter Summary ---
Demographics + + + | Address | [address] | | | [place] [address] | + + + | Home Phone | | + + + | Preferred Language | Unknown | + + + | Marital Status | | + + + | Jewish Affiliation | Unknown | + + + | Race | or | + + + | Ethnic Group | Not or | + + + Author + + + | Author | [facility] | | | and [place] | + + + | Organization | [facility] | | | [...] Providers + +------+ + | Care Tape Duplicator Name | Role | Phone | + +------+ + PCP | Unavailable | + +------+ + Encounter Details +--------+ + + + + | Date | Type | Department | Care Team | Description | +--------+ + + + + | 09/20/ | Hospital | [facility] | | | | 1991 | Encounter | [facility] | | | | | | [facility] [address] | | | | | | [place], | | | | | | [place] [address] | | | | | | [phone] | | | +--------+ + + + [...]
--- OUTSIDE RECORDS SUMMARY | ~2020-07-19 | XMS | Encounter Summary ---
Demographics + + + | Address | [address] | | | [place] [address] | + + + | Home Phone [...] | Organization | [facility] | | | and [place] | + + + | Address | Unknown | + + + | Phone | Unavailable | + + + Support + + +---------+ + | Name | Relationship | Address | Phone | + + +---------+ + | Saad Mckee | ECON | Unknown | | + + +---------+ + Care Team Providers + +------+ + | Care Hoop Punch Operator Helper Name | Role | Phone | + +------+ + | Amanda Herzog PA-C | PCP | | + +------+ + Reason for Referral Evaluate & Treat (Routine) +--------+ + + + + + | Status | Reason | Specialty | Diagnoses / | Referred By | Referred To | | | | | Procedures | Contact | Contact | +--------+ + + + + + | Closed | Specialty | Physical | Diagnoses | Jennings, | Jennings, Amanuel | | | Services | Medicine and | Numbness of | Amanuel Bud Yu MD | Bud Yu MD [address] | | | Required | Rehabilitatio | left hand | [address] | | | | n | Weakness of | [address] | [place], | | | | | both hands | [place], | [place] [address] | | | | | Mass of left | [place] [address] | Phone: | | | | | wrist Pain | Phone: | [phone] | | | | | of right | [phone] | Fax: | | | | | thumb | Fax: | [phone] | | | | | Trigger | [phone] | | | | | | finger of | | | | | | | right thumb | | | | | | | Procedures | | | | | | | UT MOTOR | | | | | | | &/SENS /> | | | | | | | NRV CNDJ | | | | | | | PRECONF | | | | | | | ELTRODE LIMB | | | | | | | UT NEEDLE | | | | | | | EMG EA | | | | | | | EXTREMITY | | | | | | | W/PARASPINL | | | | | | | AREA LIMITED | | | | | | | 02/01- | | | | | | | PEND YH | | | | | | | AUTH> DOS | | | | | | | 02/27/19 | | | +--------+ + + + + + Evaluate & Treat (Routine) +--------+ + + + + + | Status | Reason | Specialty | Diagnoses / | Referred By | Referred To | | | | | Procedures | Contact | Contact | +--------+ + + + + + | Closed | Specialty | Orthopedic | Diagnoses | Dick, | Krishan | | | Services | Surgery | Pain of | Amanuel Yu MD | Luís Waters MD | | | Required | | right thumb | [address] | | | | | Trigger | [address] | [address] | | | | | finger of | [place], | [place] | | | | | right thumb | [place] [address] | [address] | | | | | | Phone: | Phone: | | | | | | [phone] | [phone] | | | | | | Fax: | Fax: | | | | | | [phone] | [phone] | +--------+ + + + + + Reason for Visit + + + | Reason | Comments | + + + | Numbness | Bilateral hands | + + + | Weakness | | + + + Evaluate & Treat (Routine) +--------+--------+ + + + + | Status | Reason | Specialty | Diagnoses / | Referred By | Referred To | | | | | Procedures | Contact | Contact | +--------+--------+ + + + + | Closed | | Physical | Diagnoses | Rosenda, | Amanuel Jennings | | | | Medicine and | Cubital | Amanda Yu, | Bud Yu MD [address] | | | | Rehabilitatio | tunnel | PA-C [address] | [address] | | | | n | syndrome on | | [place], | | | | | left | [place] | [place] [address] | | | | | | [address] | Phone: | | | | | | [place], | [phone] | | | | | | [place] [address] | Fax: | | | | | | Phone: | [phone] | | | | | | [phone] | | | | | | | Fax: | | | | | | | [phone] | | +--------+--------+ + + + + Encounter Details +--------+---------+ + + + | Date | Type | Department | Care Team | Description | +--------+---------+ + + + | 01/03/ | Office | [facility] | Amanuel Jennings, | Numbness of left | | 2018 | Visit | PHYSIATRY [address] | MD [address] | hand (Primary Dx); | | | | [address] | [place], [place] | Weakness of both | | | | [place], [place] | [address] | hands; Mass of left | | | | [address] | | wrist; Pain of right | | | | [phone] | | thumb; Trigger | | | | | | finger of right | | | | | | thumb | +--------+---------+ + + + Social History [...] in this encounter Patient Instructions Patient Instructions Adelaide Santa, Vp Construction - 01/03/2019 1:00 PM PSTConmaurice t o wear carpal tunnel wrist splints. Wear them at night, only at night, every night, never d uring waking hours. Make sure they are not too tight. They only need to prevent the wrists from bending during sleep. Please attend your scheduled nerve conduction study and EMG appointment. Nerve conduction studies and EMG require a great deal of time to complete. If you will be unable to make your appointment please contact the clinic at least one full business day bonnie or to your appointment . Missed appoints without cancellation will only be re scheduled once. Children under the age of 13 are not permitted in the room during the nerve study. If acco mpanied by children under the age of 13, they will need an adult to supervise them, while th ey wait in the lobby. Prior to your appointment wash the skin with soap and water. This is to remove any of the natural oils on the skin which may interfere with the completion of the study. Please do not wear any lotion prior to the study as lotion may also interfere with the comp letion of the study. When attending your study please bring appropriate attire. If you are having a study of th e upper extremities please bring a short sleeve shirt to wear during the study. If you are having a study of the lower extremities please bring shorts to wear during the study. At the time of your study, please remind the physician if you are taking any blood thinning medications such as Coumadin, or heparin. At the time of your study, please remind the physician if you have an implanted electronic device such as a pacemaker. documented in this encounter Progress Notes Amanuel Jennings MD - 01/03/2019 1:00 PM PSTFormatting of this note might be different fro m the original. Physical Medicine & Rehabilitation Consult Referring Provider: Amanda Herzog P* Date of Service: 01/03/19 Patient ID: Annabella Au is a 43 y.o. female with complain of left hand numbness and w eakness. HPI Annabella Au reports that she started having numbness in the both upper extremities wo rse on the left. Annabella Au reports left hand weakness. Annabella Au reports rig ht first digit trigger finger. She has a history of bilateral carpal tunnel release in 2005, surgery was successful but stated her symptoms returned about three months ago. Her sympto ms have been worsening overtime. She reports neck pain. She rate her neck pain as 4 on a numerical pain scale. Her upper extremity numbness is intermittent. Her upper extremity numbness is strongest over the left hand. Her upper extremity numbness is exacerbated by: sleep, driving, talking on the phone, all activity and gripping. Her upper extremity numbness is reduced by: changing activity Her numbness does wake her from sleep. Annabella Au reports weakness. She describe her upper extremity weakness. She reports dropping objects. Annabella Au denies taking blood thinning medications such as Coumadin or heparin. She denies having implanted electronic device such as a pacemaker. She reports a history of diabetes, currently taking metformin. She denies a history of thyroid disease. She denies a history of rheumatoid arthritis. She denies a history of chemical exposure. She denies a history of frequent alcohol consumption. Annabella Au reports that she's had previous nerve conduction study in 2005 followed b y bilateral carpal tunnel release. Annabella Au is using a wrist splint nightly but reports that this has not improved sy mptoms. Past Medical History Past Medical History: Diagnosis Date Abnormal vaginal bleeding Acute low back pain Antisocial personality disorder (HCC) Anxiety disorder Asthma Benign essential hypertension Chronic back pain Chronic obstructive lung disease (HCC) Chronic posttraumatic stress disorder Depressive disorder Diabetes mellitus type 2 in obese ([facility]) Gastroesophageal reflux disease Heroin dependence ([facility]) Hoarse Hypertensive disorder Insomnia with sleep apnea IV drug abuse ([facility]) Low back strain Numbness of left hand Obstructive sleep apnea of adult Opioid dependence on agonist therapy ([facility]) Other chronic pain Panic disorder without agoraphobia with severe panic attacks Polysubstance dependence ([facility]) Sedative, hypnotic or anxiolytic dependence, in remission ([facility]) Tobacco user Trigger finger of right hand thumb Viral bronchitis Past Surgical History Past Surgical History: Procedure Laterality Date APPENDECTOMY CARPAL TUNNEL RELEASE Bilateral SECTION CHOLECYSTECTOMY ROTATOR CUFF REPAIR Right TONSILLECTOMY VENTRICULOPERITONEAL SHUNT Family History: Family History Problem Relation Age of Onset No Known Problems Mother Social History: Social History Social History Marital status: Spouse name: SAAD MCKEE Number of children: N/A Years of education: N/A Occupational History UNEMPLOYED Social History Main Topics Smoking status: Current Every Day Smoker Packs/day: 1.00 Types: Cigarettes Smokeless tobacco: Never Used Alcohol use Yes Comment: Occasionally Drug use: No Sexual activity: Not Asked Other Topics Concern None Social History Narrative None Allergies: Allergies Allergen Reactions Codeine Hives Tramadol Hives Cephalexin Rash Lamotrigine Hives Suicidal ideation Morphine Nausea Only Venlafaxine Other (See Comments) Depression Clavulanic Acid Nausea And Vomiting Paroxetine Amoxicillin-Pot Clavulanate Nausea And Vomiting Sumatriptan Rash Had rxn w/ other meds. 2nd time no rxn Medications: Outpatient Encounter Prescriptions as of 01/03/2019 Medication Sig Dispense Refill acetaminophen (TYLENOL) 500 mg tablet Take 500 mg by mouth Daily as needed for Pain. amitriptyline (ELAVIL) 50 mg tablet Take 200 mg by mouth nightly. buprenorphine-naloxone (SUBOXONE) 8-[address] 1 tablet under the tongue. As directed [DISCONTINUED] diclofenac (VOLTAREN) 50 mg EC tablet Take 50 mg by mouth 2 times daily. Take with food losartan (COZAAR) 100 MG tablet Take 100 mg by mouth every morning. metFORMIN (GLUCOPHAGE-XR) 500 mg 24 hr tablet Take 1,000 mg by mouth Daily (with dinner ). methocarbamol (ROBAXIN) 500 mg tablet Take 500 mg by mouth 3 times daily as needed for Muscle spasms. Naproxen (NAPROSYN PO) Take 500 mg by mouth Daily. omeprazole (PRILOSEC) 20 mg capsule Take 20 mg by mouth every 12 hours. OMEPRAZOLE PO Take 20 mg by mouth 2 times daily. [DISCONTINUED] penicillin 500 mg tablet As directed No facility-administered encounter medications on file as of 01/03/2019. Review of Systems:ROS GENERALLY: No fever, no night sweats, no anemia, no fatigue, no recent profound weight ch anges. EYES: No eye problems, no use of corrective lenses, no eye injury, no double vision, no bl indness. EARS, NOSE, AND THROAT: No changes in taste or smell, + hearing difficulty, no ringing in the ears, no ear drainage, no dizziness, no voice changes, no difficulty swallowing, + signi ficant snoring, + sleep apnea, no sinus problems, no major dental work. NEUROLOGICALLY: + patient has no numbness/pain of arms, no numbness/pain of legs, + awake w ith numbness/pain, + weakness, + muscle aching, no coordination difficulty, no change in w alk, no head injury, no neck injury, no back injury, no pain in neck, + pain in back, no str flip, no fainting spells, no loss of consciousness, no tremor/shaking, no seizures, + headach es, no migraine, no memory loss, no speech difficulty, no confusion and no numbness of face. PSYCHIATRIC: + depression, + sleep disorders, + anxiety, + bipolar disorder, no psychotic episodes. CARDIOVASCULAR: No heart attacks, no heart murmur, no heart fluttering, no chest pain, + a nkle swelling. LUNG DISEASE: No shortness of breath, + cough, no tuberculosis, no bloody cough, no asthm a, + emphysema/COPD. GASTROINTESTINAL: No bowel disease, no nausea or vomiting, no rectal bleeding, no constipa tion, no stool incontinence, no liver disease, no gallbladder disease, no abdominal pain, no ulcers. KIDNEY DISEASE: No urinary frequency, no painful or difficult urination, no incontinence. ENDOCRINE: + diabetes, no thyroid disease, no osteopenia or osteoporosis, no breast draina ge. SKIN: No breast lumps, no skin changes, no rashes, no itches. HEMATOLOGIC/LYMPHATIC: No enlarged lymph nodes, no easy or unusual bleeding, no personal h istory of cancer. RHEUMATOLOGIC: No joint arthritis, no rheumatoid arthritis. Vitals: 01/03/19 1304 BP: 110/72 Pulse: 88 PainSc: 0 - No pain Objective Physical Exam: General Appearance: Alert and Oriented to person, place, time and situation, no distress. HEENT: PERRL, conjunctiva clear, no scleral icterus, EOM's intact Neck: No tenderness to cervical paraspinal muscles, normal ROM Heart: Regular Rate and Rhythm Lungs: No audible wheezing or crackles. Abdomen: Distended Back: Symmetric Neurological: Cranial Nerves: Intact Speech: Normal Sensory: Decreased sensation to the median distrubution to monofilament touch. Motor: Normal 5/5 strength in both upper extremities including biceps, triceps, wrist dorsiflexion , finger abduction, and right dye weigher. 4/5 hand dye weigher on the left Reflexes: 2+ normal and symmetric over the biceps, triceps, and brachioradialis of both upper extremi ties. Coordination: Intact with finger to nose testing in both upper extremities. Intact with heal to morse slide in both lower extremities Tinel's test positive over the median nerve at left wrists. Palpable nodule over the volar aspect of left wrist that moves with the finger flexor tendo ns. Database: No imaging to review in today's visit. Assessment 1. Numbness of left hand 2. Weakness of both hands 3. Mass of left wrist 4. Pain of right thumb 5. Trigger finger of right thumb Plan 1. The differential diagnosis for Annabella Au's symptoms included, but are not limit ed to: recurrent carpal tunnel, peripheral neuropathy, and cervical radiculopathy. Annabella Au's clinical presentation is most consistent with recurrent carpal tunnel. 2. Today we reviewed that the nerve study will hopefully help us localize the origin of sy mptoms. We discussed that if carpal tunnel syndrome is discovered, that the nerve study can help determine if the carpal tunnel syndrome is mild, moderate or severe. We discussed thong t if carpal tunnel is mild the treatments tend to be conservative such as antiinflammatories , hand therapy, wrist splints and sometimes steroid injection. We discussed that moderate a nd severe carpal tunnel syndrome generally require surgical release. We discussed that with severe carpal tunnel syndrome there may be permanent damage to the nerve that does not reso lve despite adequate surgical release. We discussed natural progress of carpal tunnel syndr ome. We reviewed that carpal tunnel if left untreated, tends to get progressively worse ove r time. We discussed that if severe carpal tunnel syndrome is left untreated that the amoun t of permanent nerve damage can get worse leading to worse disability. Today we discussed how to prepare for nerve conduction study and EMG. We discussed not wea ring lotion and bringing a short sleeve shirt to wear. We discussed the process of the test , which involves small shocks to the nerves and that the study may include pin sticks, witho ut shock into the muscles. 3. Today we dicussed possible risk factors and correlating diagnosis associated with carpal tunnel. We dicussed that an individual with diabetes is approximately 6 times more likely t o develop carpal tunnel. Annabella Au has history of diabetes. Annabella Au was e ncouraged to work toward weight loss. We discussed, and emphasized that the nerves that we are born with are the nerves we will d ie with, thus if there is axon damage there is potential that the nerve won't come back and symptoms won't improve. 4. Annabella Au was advised to continue wearing a carpal tunnel wrist splint. We dicu ssed that it should be worn at night, only at night, every night, never during waking hours. We dicussed that they should not be to tight, they only need to prevent the wrists from b ending during sleep. We dicussed that it only takes approximately 30 minutes of pressure on a nerve to cause nerve damage, but may take approximately 6 months of proper alignment and n o pressure on the nerve to allow for healing. 5. Orthopedic surgery referral to was placed today for evaluation and treatment of right first digit trigger finger. This may also transition into treatment of suspected lef t carpal tunnel syndrome, pending the results of her left upper extremity nerve conduction s tudy. Annabella Au was noted to have palpable nodule of left flexor digitorum tendon, in sydnee se proximity to the carpal tunnel. She was asked to review this with Dr. Nickerson and discuss if it my contribute to median nerve pathology and her current left hand numbness. I will le ave it to Dr. Holman's discretion, whether or not she may need left wrist MRI. 6. Annabella Au will return to the clinic for nerve conduction study and EMG to evalu ate for the differential diagnosis above. Thank you for allowing me to be involved in the care of your patient. If you have any ques tions regarding the care of your patient please don't hesitate to call. Approximately 45 minutes was spent face to face with Annabella Au, over half of which was spent formulating and discussing their medical treatment plan. I, Amanuel Jennings MD personally performed the services described in this documentation, as scribed by in my presence, Adelaide Santa, Vp Construction and are both accurate and comp lete. Amanuel Jennings MD - 01/03/2019 Cc: Amanda Herzog PA-C documented in this en counter Plan of Treatment + + +--------+ + + | Name | Type | Priori | Associated Diagnoses | Order Schedule | | | | ty | | | + + +--------+ + + | Orthopedic Surgery, | Outpatient | Routin | Pain of right | Ordered: 01/03/2019 | | External - AMB | Referral | e | thumb Trigger | | | Referral | | | Finger Of Right | | | | | | Thumb | | + + +--------+ + + | * [facility] [place] | Outpatient | Routin | Numbness Of Left | Ordered: 01/03/2019 | | Physiatry - AMB | Referral | e | Hand Weakness Of | | | Referral | | | Both Hands Mass Of | | | | | | Left Wrist Pain of | | | | | | right thumb Trigger | | | | | | Finger Of Right | | | | | | Thumb | | + + +--------+ + + documented as of this encounter Visit Diagnoses + + | Diagnosis | + + | Numbness of left hand - Primary | + + | Weakness of both hands | + + | Mass of left wrist | + + | Pain of right thumb Pain in limb | + + | Trigger finger of right thumb | + + documented in this encounter
--- OUTSIDE RECORDS SUMMARY | ~2020-07-19 | XMS | Encounter Summary ---
Demographics + + + | Address | [address] | | | [place] [address] | + + + | Home Phone [...] + + | Author | [facility] | + + + | Organization | [facility] [employer] [facility] | + [...] Team Providers + +------+ + | Care Mud Analysis Supervisor Name | Role | Phone | [...] Erroneous Encounter | | 2007 | | [facility] | [place] [facility] | - Disregard | | | | and Healing [address] | | | | [address] [facility] | [address] | | | | | Health and Healing, | [place], [place] | | | | | [facility] | [address] | | | | | Floor [place], [place] | | | | | | [address] | | | | | | [phone] | | | +--------+ + + + [...] Notes Telephone Encounter - Kiki Rosen - 08/14/2008 8:07 PM [id number] Nessa berman signed by Kiki Rosen at 08/14/2008 8:07 PM PDTdocumented in this encounter Plan of Treatment Not on filedocumented as of this encounter Visit Diagnoses Not on filedocumented in this encounter"
--- OUTSIDE RECORDS SUMMARY | ~2020-07-19 | XMS | Encounter Summary ---
Demographics + + + | Address | [address] | | | [place] [address] | + + + | Home Phone | | + + + | Preferred Language | Unknown | + + + | Marital Status | | + + + | Buddhism Affiliation | NON | + + + | Race | or | + + + | Ethnic Group | Not or | + + + Author + + + | Author | [facility] | + + + | Organization | [facility] | + + + | Address | Unknown | + + + | Phone | Unavailable | + + + Support + + +---------+ + | Name | Relationship | Address | Phone | + + +---------+ + | Ruby Au | ECON | Unknown | | + + +---------+ + Care Team Providers + +------+ + | Care Thermal Spray Operator Name | Role | Phone | [...] Cerebri; | | 2005 | Visit | [facility] | | Common Migraine | | | | Neuro-Ophthalmology | | without Mention of | | | | [address] | | Intractable Migraine | | | | Mailcode: CEI | | | | | | [place] [address] | | | | | | [phone] | | | +--------+---------+ + + + [...] 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
--- OUTSIDE RECORDS SUMMARY | ~2020-07-19 | XMS | Encounter Summary ---
Demographics + + + | Address | [address] | | | [place] [address] | + + + | Home Phone [...] + + + | Author | [facility] | + + + | Organization | [facility] [employer] [facility] | + + + | Address | Unknown | + + + | Phone | Unavailable | + + + Support + + +---------+ + | Name | Relationship | Address | Phone | + + +---------+ + | Ruby Au | ECON | Unknown | | + + +---------+ + Care Team Providers + +------+ + | Care Medical Imaging Specialist Name | Role | Phone | + +------+ + | Yeison Simms MD | PCP | Unavailable | + +------+ + Reason for Visit + +--------+ + | Reason | Onset | Comments | | | Date | | + +--------+ + | Refill Request | 08/14/ | | | | 2008 | | + +--------+ + Encounter Details +--------+--------+ + + + | Date | Type | Department | Care Team | Description | +--------+--------+ + + + | 08/14/ | Refill | Neurosurgery at | Sam Pedroza MD | Refill Request | | 2007 | | [facility] [address] | [address] | | | | | Ave [place] for | [place], [place] | | | | | Health and Healing, | [address] | | | | | [facility] | [phone] | | | | | floor [place], [place] | | | | | | [address] | | | | | | [phone] | | | +--------+--------+ + + + [...] Notes Telephone Encounter - Mandi Mcdonnell - 08/15/2008 11:25 AM PDTLori called in an Rx for [place] for pt however the pharm called back with some questions. Ky said she will talk to Teresa lopez about this pt as we have never perscribed this drug. elephone Encounter - Mandi Mcdonnell - 08/14/2008 8:16 AM PDTPt wo uld like an RX for [place]. doc umented in this encounter Plan of Treatment Not on filedocumented as of this encounter Visit Diagnoses Not on filedocumented in this encounter"
--- OUTSIDE RECORDS SUMMARY | ~2020-07-19 | XMS | Encounter Summary ---
Demographics + + + | Address | [address] | | | [place] [address] | + + + | Home Phone [...] + + | Author | [facility] | + + + | Organization | [facility] | + + + | Address | Unknown | + + + | Phone | Unavailable | + + + Support + + +---------+ + | Name | Relationship | Address | Phone | + + +---------+ + | Ruby Au | ECON | Unknown | | + + +---------+ + Care Team Providers + +------+ + | Care Repair Armature Winder Helper Name | Role | Phone | + +------+ + | Dennis Maddox | PCP | | + +------+ + Reason for Visit + +--------+ + | Reason | Onset | Comments | | | Date | | + +--------+ + | Prescription | 03/27/ | | | | 2012 | | + +--------+ + Encounter Details +--------+ + + + + | Date | Type | Department | Care Team | Description | +--------+ + + + + | 03/27/ | Telephone | [facility] | Mo Hood | Prescription | | 2012 | | [place] | MD [place] | | | | | leon at [facility] [address] | | | | | [address] [facility] | | | | | | Health and Healing, | | | | | | Building | | | | | | Floor [place], [place] | | | | | | [address] | | | | | | [phone] | | | +--------+ + + + [...] this encounter Miscellaneous Notes Telephone Encounter - Jacquelyn El - 03/27/2013 10:11 AM PDTPatient prescribed topiramate 25 mg Oral tablet per patient's including call yesterday, 03/26/2013. Patient did not pick-up printed script at time of visit. She is requesting script to be faxed to her local pharmacy as follows. Pharmacy: [facility] [place] [phone] documented in this encounter Plan of Treatment Not on filedocumented as of this encounter Visit Diagnoses Not on filedocumented in this encounter"
--- OUTSIDE RECORDS SUMMARY | ~2020-07-19 | XMS | Encounter Summary ---
Demographics + + + | Address | [address] | | | [place] [address] | + + + | Home Phone | | + + + | Preferred Language | Unknown | + + + | Marital Status | | + + + | Moravian Affiliation | Unknown | + + + | Race | or | + + + | Ethnic Group | Not or | + + + Author + + + | Author | [facility] | | | and [place] | + + + | Organization | [facility] | | [...] Team Providers + +------+ + | Care Assisted Living Care Manager Name | Role | Phone | + +------+ + PCP | Unavailable | + +------+ + Encounter Details +--------+ + + + + | Date | Type | Department | Care Team | Description | +--------+ + + + + | 04/18/ | Hospital | [facility] | | | | 1991 | Encounter | MED CTR EMERGENCY | | | | | | CENTER [address] | | | | | | [place] | | | | | | [address] | | | | | | [phone] | | | +--------+ + + + [...]
--- OUTSIDE RECORDS SUMMARY | ~2020-07-19 | XMS | Encounter Summary ---
Demographics + + + | Address | [address] | | | [place] [address] | + + + | Home Phone [...] + + | Author | [facility] | + + + | Organization | [facility] [employer] [facility] | + + + | Address | Unknown | + + + | Phone | Unavailable | + + + Support + + +---------+ + | Name | Relationship | Address | Phone | + + +---------+ + | Ruby Au | ECON | Unknown | | + + +---------+ + Care Team Providers + +------+ + | Care Engine Room Helper Name | Role | Phone | + +------+ + | Dennis Maddox | PCP | | + +------+ + Encounter Details +--------+ + + + + | Date | Type | Department | Care Team | Description | +--------+ + + + + | 02/07/ | Hospital | Registration 3181 | Hay Hughes MD 3375 | | | 2007 | Activity | DANIELITO Flores | DANIELITO Hammer | | | | | [place] Mailcode: [id number] | [place], [place] | | | | | [place] | [address] | | | | | [address] | [phone] | | | | | [phone] | | | +--------+ + + + [...]
--- OUTSIDE RECORDS SUMMARY | ~2020-07-19 | XMS | Encounter Summary ---
Demographics + + + | Address | [address] | | | [place] [address] | + + + | Home Phone [...] Team Providers + +------+ + | Care Roller Repairer Name | Role | Phone | + +------+ + PCP | Unavailable | + +------+ + Encounter Details +--------+ + + + + | Date | Type | Department | Care Team | Description | +--------+ + + + + | 08/12/ | Hospital | [facility] | Jenn [place], | | | 2012 | Encounter | HOSPITAL EMERGENCY | PHARMACIST HELPER [address] | | | | | CENTER [address] | [place] | | | | | [address] [place] | [id number] | | | | | [address] | | | | | | [phone] | | | +--------+ + + + [...]
--- OUTSIDE RECORDS SUMMARY | ~2020-07-19 | XMS | Encounter Summary ---
Demographics + + + | Address | [address] | | | [place] [address] | + + + | Home Phone [...] + + + | Author | [facility] | + + + | Organization | [facility] | + + + | Address | Unknown | + + + | Phone | Unavailable | + + + Support + + +---------+ + | Name | Relationship | Address | Phone | + + +---------+ + | Ruby Au | ECON | Unknown | | + + +---------+ + Care Team Providers + +------+ + | Care Religious Education Teacher Name | Role | Phone [...] Letter Encounter | | 2009 | | [facility] | [address] | | | | | and Healing [address] | [place], [place] | | | | | [address] [facility] | [address] | | | | | Health and Healing, | [phone] | | | | | | | | | | | Floor [place], [place] | | | | | | [address] | | | | | | [phone] | | | +--------+ + + + [...] 01/27/2009 1:25 PM PSTInformed patient to fax SeoPult l records release to the medical records department. elephone Encounter - Citlaly Aguilar - 01/22/2009 2:08 PM PSTPatient called to request documentation, on her care with Dr. Pedroza, so she may give this informati on to her yarn skeins examiner. Patient indicated that she also needs documentation stating when her la st surgery was and the medications that were prescribed to her for her post-operative recove ry and pain management. Patient requested that this information be sent to [facility]oop [facility], [facility] [address] [place] [address]. Please call patient to discuss. documented in this encounter Plan of Treatment Not on filedocumented as of this encounter Visit Diagnoses Not on filedocumented in this encounter"
--- OUTSIDE RECORDS SUMMARY | ~2020-07-19 | XMS | Encounter Summary ---
Demographics + + + | Address | [address] | | | [place] [address] | + + + | Home Phone | | + + + | Preferred Language | Unknown | + + + | Marital Status | | + + + | Lutheran Affiliation | NON | + + + | Race | or | + + + | Ethnic Group | Not or | + + + Author + + + | Author | [facility] | + + + | Organization | [facility] [employer] [facility] | + + + | Address | Unknown | + + + | Phone | Unavailable | + + + Support + + +---------+ + | Name | Relationship | Address | Phone | + + +---------+ + | Ruby Au | ECON | Unknown | | + + +---------+ + Care Team Providers + +------+ + | Care Technical Support Internship Name | Role | Phone | + +------+ + | Brenden Benavides MD | PCP | | + +------+ + Encounter Details +--------+ + + + + | Date | Type | Department | Care Team | Description | +--------+ + + + + | 02/23/ | Telephone | [facility] | Brad Currie MD | | | 2006 | | [place] | | | | | | Neuro-Ophthalmology | | | | | | [address] [facility] | | | | | | Mailcode: PATTI | | | | | | [place] [address] | | | | | | [phone] | | | +--------+ + + + [...] Notes Telephone Encounter - Sergio Zhu - 02/23/2007 3:00 PM PDTPatient called raghu martin saying 's office said they would not see her again. Patient states she is still alin ng discharge coming out of her eye and her vision seems decreased- I advised patient she shawanda uld be seen immediately. Due to patient being in [place] I advised her to contact her oph thalmologist in [place] for immediate appointment. Patient said she would do this. Sergio Alicia Neuro Scalloper for MD Julieta Nielson MD documented in th is encounter Plan of Treatment Not on filedocumented as of this encounter Visit Diagnoses Not on filedocumented in this encounter"
--- OUTSIDE RECORDS SUMMARY | ~2020-07-19 | XMS | Encounter Summary ---
Demographics + + + | Address | [address] | | | [place] [address] | + + + | Home Phone [...] Organization | [facility] [...] Team Providers + +------+ + | Care Mental Health Assistant Name | Role | Phone | + +------+ + PCP | Unavailable | + +------+ + Encounter Details +--------+ + + + + | Date | Type | Department | Care Team | Description | +--------+ + + + + | 04/24/ | Hospital | [facility] | | | | 1991 | Encounter | MED CTR EMERGENCY | | | | | | CENTER [address] | | | | | | [place] | | | | | | [address] | | | | | | [phone] | | | +--------+ + + + [...]
--- OUTSIDE RECORDS SUMMARY | ~2020-07-19 | XMS | Encounter Summary ---
Demographics + + + | Address | [address] | | | [place] [address] | + + + | Home Phone | | + + + | Preferred Language | Unknown | + + + | Marital Status | | + + + | Christian Affiliation | Unknown | + + + [...] Team Providers + +------+ + | Care Final Block Press Operator Name | Role | Phone | + +------+ + PCP | Unavailable | + +------+ + Encounter Details +--------+ + + + + | Date | Type | Department | Care Team | Description | +--------+ + + + + | 05/25/ | Hospital | [facility] | | | | 1991 | Encounter | MED CTR [facility] | | | | | | [facility] [address] | | | | | | [place], | | | | | | [place] [address] | | | | | | [phone] | | | +--------+ + + + [...]
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
--- OUTSIDE RECORDS SUMMARY | ~2020-07-19 | XMS | Encounter Summary ---
Demographics + + + | Address | [address] | | | [place] [address] | + + + | Home Phone [...] + | Author | [facility] | + + + | Organization | [facility] [employer] [facility] | + + + | Address | Unknown | + + + | Phone | Unavailable | + + + Support + + +---------+ + | Name | Relationship | Address | Phone | + + +---------+ + | Ruby Au | ECON | Unknown | | + + +---------+ + Care Team Providers + +------+ + | Care Director Fixed Income Name | Role | Phone | + [...] Refill Request | | 2012 | | [place]/[facility] | MD Perry | | | | | leon at [facility] [address] | | | | | [address] [facility] | | | | | | Health and Healing, | | | | | | Building | | | | | | Floor [place], [place] | | | | | | [address] | | | | | | [phone] | | | +--------+--------+ + + + [...]
--- OUTSIDE RECORDS SUMMARY | ~2020-07-19 | XMS | Encounter Summary ---
Demographics + + + | Address | [address] | | | [place] [address] | + + + | Home Phone [...] + + | Author | [facility] | + + + | Organization | [facility] [employer] [facility] | + + + | Address | Unknown | + + + | Phone | Unavailable | + + + Support + + +---------+ + | Name | Relationship | Address | Phone | + + +---------+ + | Ruby Au | ECON | Unknown | | + + +---------+ + Care Team Providers + +------+ + | Care Silica Dry Press Helper Name | Role | Phone | [...] Operative Report | | 2006 | | Center [place] [address] | | | | | Transcribed | [facility] | | | | | | for Health and | | | | | | Healing, [address] | | | | | | [place], [place] | | | | | | [address] | | | | | | [phone] | | | +--------+ + + + [...] + + documented as of this encounter Procedure Notes Record, Operation - 02/07/2007 12:00 AM PDTAssociated Order(s): OPERATION RECORD [id number] [facility] [id number] Date: 02/07/2007 Attending Surgeon: Hay Hughes M.D. Oil Well Fishing Tool Operator(s): Pascual Bermudez M.D. Preoperative Diagnosis(es): 1. Pseudotumor cerebri. 2. Chronic papilledema. 3. 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 Postoperative Diagnosis(es): 1. Pseudotumor cerebri. 2. Chronic papilledema. 3. 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 Procedures Performed: Left optic nerve sheath fenestration. Anesthesia: General. Complications: None. Estimated Blood Loss: None. Indications: The patient is a 31-year-old female with a history of pseudotumor cerebri that rebounded and is not responding despite maximal medical therapy. She has chronic papilledema and enlarged blind spot and is at risk of developing optic atrophy. It is worse on the left side compared to the right. Therefore, the patient presents for optic nerve sheath fenestration. Procedure: The patient was counseled as to the risks and benefits of surgery and a consent was obtained. The patient was brought into the operating room and placed under general anesthesia. Local anesthesia was infiltrated into the left upper eyelid and the patient was prepped and draped in the usual fashion for orbital surgery. A #15 blade was used to incise the left upper eyelid skin. High-temp cautery was used to incise the orbicularis oculi muscle and medial orbital septum. The gift shop assistant retracted the orbital fat bag with a malleable retractor and a Sewall retractor. Cotton-tipped applicators were used to bluntly dissect down to the optic nerve sheath. An area sparse of vessels was incised using an MVR blade, and a significant amount of clear CSF fluid issued forth. A neurosurgical nerve hook was used to elevate the sheath away from the optic nerve and curved scissors was used to excise the portion of the sheath to create fenestration. All the instruments were removed and there was no evidence of bleeding. The skin incision was then closed using a running 6-0 fast-absorbing gut suture. Erythromycin antibiotic ointment was placed on the eye and over the sutures. A light patch was placed over the eye. The patient was then awakened from anesthesia and sent to recovery room in good condition. Hay Hughes M.D. / [id number] / [id number] / [id number] / [id number] cc: Brad Currie M.D. [facility] Brenden Benavides M.D. [facility] [address] [place] [id number] Electronically signed by Hay Hughes 02-12-2007 05:13:05 PM documented in this encou nter Plan of [...] | 02/07/2007 12:00 AM PDT | | [id number] | | [id number] [place] [id number] | | | | Date: 02/07/2007 | | | | Attending Surgeon: Hay Hughes M.D. | | | | Oil Well Fishing Tool Operator(s): Pascual Bermudez M.D. | | | [...] and medial orbital | | septum. The gift shop assistant retracted the orbital fat bag with [...] Hay Hughes M.D. | | | | JN / | | [id number] / [id number] / [id number] / [id number] | | | | | | | | cc: | | | | | | Brad Currie M.D. | | [facility] | | | | | | Brenden Benavides M.D. | | [facility] | | [address] | | [place] [address] | | | | | | Electronically signed by Hay Hughes 02-12-2007 05:13:05 PM | | | | | + + documented in this encounter Visit Diagnoses Not on filedocumented in this encounter"
--- OUTSIDE RECORDS SUMMARY | ~2020-07-19 | XMS | Encounter Summary ---
Demographics + + + | Address | [address] | | | [place] [address] | + + + | Home Phone | | + + + | Preferred Language | Unknown | + + + | Marital Status | | + + + | Caodaism Affiliation | NON | + + + | Race | or | + + + | Ethnic Group | Not or | + + + Author + + + | Author | [facility] | + + + | Organization | [facility] [employer] [facility] | + + + | Address | Unknown | + + + | Phone | Unavailable | + + + Support + + +---------+ + | Name | Relationship | Address | Phone | + + +---------+ + | Ruby Au | ECON | Unknown | | + + +---------+ + Care Team Providers + +------+ + | Care Dictating Machine Typist Name | Role | Phone | + +------+ + | Yeison Simms MD | PCP | Unavailable | + +------+ + Reason for Visit + +--------+ + | Reason | Onset | Comments | | | Date | | + +--------+ + | Postoperative | 08/14/ | | | Questions | 2007 | | + +--------+ + | Refill Encounters | 08/15/ | | | | 2008 | | + +--------+ + Encounter Details +--------+ + + + + | Date | Type | Department | Care Team | Description | +--------+ + + + + | 08/14/ | Telephone | Neurosurgery at | Sam Pedroza MD | Postoperative | | 2007 | | [facility] [address] | [address] | Questions; Refill | | | | Ave Center for | [place], [place] | Encounters | | | | Health and Healing, | [address] | | | | | [facility] | [phone] | | | | | floor [place], [place] | | | | | | [address] | | | | | | [phone] | | | +--------+ + + + [...] this encounter Miscellaneous Notes Telephone Encounter - Virginia Glynn - 11/05/2008 4:29 PM PSTSee previous records closing en counter elephone Encounter - Ky Mathew - 08/15/2008 11:[address] Pedroza last approved the rx 05/01/08 for [place] 10-325mg, #90, take 1 tablet every 4-6 hours as needed for pain. I verified this information with the [facility] pharmacy. Kiki approved the rx for [place] 10-325mg, #80, take 1 tablet every 4-6 hours prn, No refills. This was called into [facility] pharmacy, spoke kirt sandra Garcia, . Please sign orders below and close encounter. elephone Encounter - Virginia Glynn - 08/14/2008 4 :08 PM PDTRouting To Kiki el ephone Encounter - Virginia Glynn - 08/14/2008 10:16 AM PDTPatient is calling stating that she feels like stitches are opening up from the bottom on up. States that she is concerened bec ause she can feel it. Has someone is coming over to look at it. Please call and advise. Pn 0 -10, on is a 5-6/10 at the surgical sight. States that she does not have a PCP to see up the re. Patient called again stating that no one has called her back. States that her friend came a nd looked at it, and stated that the bottom one is opening up a little but is still closed a nd is not having any drainage coming out. Patient is going to go to the local ER. documented in this encounter Plan of Treatment Not on filedocumented as of this encounter Visit Diagnoses Not on filedocumented in this encounter"
--- OUTSIDE RECORDS SUMMARY | ~2020-07-19 | XMS | Encounter Summary ---
Demographics + + + | Address | [address] | | | [place] [address] | + + + | Home Phone [...] + + | Author | [facility] | + + + | Organization | [facility] | + + + | Address | Unknown | + + + | Phone | Unavailable | + + + Support + + +---------+ + | Name | Relationship | Address | Phone | + + +---------+ + | Ruby Au | ECON | Unknown | | + + +---------+ + Care Team Providers + +------+ + | Care Forest Fire Management Officer Name | Role | Phone | + [...] Erroneous Encounter | | 2007 | | [facility] | [facility] | - Disregard | | | | and Healing [address] | Neurosurgery [address] | | | | | [address] [facility] | [address] | | | | | Health and Healing, | [place], [place] | | | | | [facility] | [address] | | | | | Floor [place], [place] | | | | | | [address] | | | | | | [phone] | | | +--------+ + + + [...]
--- OUTSIDE RECORDS SUMMARY | ~2020-07-19 | XMS | Encounter Summary ---
Demographics + + + | Address | [address] | | | [place] [address] | + + + | Home Phone [...] + + | Author | [facility] | + + + | Organization | [facility] | + + + | Address | Unknown | + + + | Phone | Unavailable | + + + Support + + +---------+ + | Name | Relationship | Address | Phone | + + +---------+ + | Ruby Au | ECON | Unknown | | + + +---------+ + Care Team Providers + +------+ + | Care Cath Lab Technologist Name | Role | Phone | [...] | | | | | [facility] | [place], [place] | | | | | Health and Healing, | [address] | | | | | Building 1, [address]th | [phone] | | | | | floor [place], [place] | | | | | | [address] | | | | | | [phone] | | | +--------+ + + + [...] 02/20/2013 1:43 PM PDTPatient [facility], abdominal pain and dc'd from [facility] ED on ATBX regimen. No neurosurgical [...] sushant. She opted medical therapy through her outside industrial sales representative: increase in diamox dose; and l et [...] spots." Advised pt to go to the [facility] ED, pt states she is in [place], [place] and will go to her [facility] ED. Paged FLORA Paul and discussed documentation above. documented in this encounter Plan of Treatment Not on filedocumented as of this encounter Visit Diagnoses Not on filedocumented in this encounter
--- OUTSIDE RECORDS SUMMARY | ~2020-07-19 | XMS | Encounter Summary ---
Demographics + + + | Address | [address] | | | [place] [address] | + + + | Home Phone | | + + + | Preferred Language | Unknown | + + + | Marital Status | | + + + | Mormonism Affiliation | NON | + + + | Race | or | + + + | Ethnic Group | Not or | + + + Author + + + | Author | [facility] | + + + | Organization | [facility] [employer] [facility] | + + + | Address | Unknown | + + + | Phone | Unavailable | + + + Support + + +---------+ + | Name | Relationship | Address | Phone | + + +---------+ + | Ruby Au | ECON | Unknown | | + + +---------+ + Care Team Providers + +------+ + | Care Technical Support Agent Name | Role | Phone | [...] | | | | | | | [address] | | | | | | | [facility] | | | | | | | [place], | | | | | | | [address] [place] [address] | | | | | | | [place], [place] | | | | | | | [address] Phone: | | | | | | | [phone] | | | | | | | Fax: | | | | | | | [phone] | +--------+--------+ + + + + Encounter Details +--------+ + + + + | Date | Type | Department | Care Team | Description | +--------+ + + + + | 03/26/ | Procedure | [facility] | | Visual field testing | | 2012 | | [place] [facility] | | | | | | [facility] at [facility] [address] | | | | | | [address] [facility] | | | | | | for Heatl and | | | | | | Healing, Building 1, | | | | | | 11th Floor | | | | | | [place], [place] | | | | | | [address] | | | | | | [phone] | | | +--------+ + + + [...] Au was seen in the [facility] [place] [facility] Department today, 2012, for 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 documented in this encounter Plan of Treatment Not on filedocumented as of this encounter Procedures + +--------+ + + + | Procedure Name | Priori | Date/Time | Associated Diagnosis | Comments | | | ty | | | | + +--------+ + + + | UT VISUAL FIELD | Routin | 03/26/2013 | [...]
--- OUTSIDE RECORDS SUMMARY | ~2020-07-19 | XMS | Encounter Summary ---
Demographics + + + | Address | [address] | | | [place] [address] | + + + | Home Phone | | + + + | Preferred Language | Unknown | + + + | Marital Status | | + + + | Buddhism Affiliation | Unknown | + + + | Race | or | + + + | Ethnic Group | Not or | + + + Author + + + | Author | [facility] | | | and [place] | + + + | Organization | [facility] | | | [...] Providers + +------+ + | Care Animal Keeper Head Name | Role | Phone | + +------+ + PCP | Unavailable | + +------+ + Encounter Details +--------+ + + + + | Date | Type | Department | Care Team | Description | +--------+ + + + + | 01/27/ | Hospital | [facility] | [place] | | | 2011 - | Encounter | MED CTR EMERGENCY | DO Gaurang Drake | | | | | CENTER [address] | [place], [place] | | | 01/28/ | | [place], [place] | [address] | | | 2011 | | [address] | | | | | | [phone] | | | +--------+ + + + [...] her discharge instructions with referral to a salvage engineering technician for the rash, as well as a prescription for tramadol, including a home pack of it, and some Zofran. She walked out before evaluation was complete . Therefore, please add to the discharge diagnosi s, left before evaluation complete. DICTATED BY: Vern Carlin M.D. Emergency Medicine JOB #: [id number] EXT JOB #:[id number] <Electronicall y Signed by Vern Carlin MD> 02/07/12 0734 Vern Carlin MD - 01/28/2012 10:55 PM PSTDATE: 01/28/2012 CHIEF COMPLAINT: Headache and rash. HISTORY OF PRESENT ILLNESS: Annabella is a 36-year-old female, states she has had what sounds like a michelle tricular or a VARIETY LATHE OPERATOR shunt placed for hydrocephalus several years ago. [...] want to go to the ER in [place], as she has had bad experience with [...] Vern Carlin M.D. Emergency Medicine JOB #: [id number] EXT JOB #:[id number] <Electronicall y Signed by Vern Carlin MD> [...] Performed At | + + + | [facility] | [facility] | | [address] | [facility] | | UNENHANCED HEAD CT, 01/28/2012, [...] COMMUNICATED TO THE ER STAFF BY THE [facility] RADIOLOG IST ON | | | 01/29/2012 AT 0003 HOURS. Dictated Date/Time: 01/29/2012 09:41 | | | Transcribed Date/Time: 01/29/2012 09:47 Machine Technician: | | | <Electronically Signed by Ivan Smalls MD> 01/29/12 1606 | | + + + + + | Procedure Note | + + | Neal, Rad Conversion - 01/04/2014 4:51 PM [facility] | | Diagnostic Imaging Department [address] [place] [address] | | UNENHANCED HEAD CT, 01/28/2012, 2342 [...] THE ER STAFF BY | | [facility] ON 01/29/2012 AT 0003 HOURS. [...] 09:41 | |Transcribed Date/Time: 01/29/2012 09:47 | |Machine Technician: | |<Electronically Signed by Ivan Smalls MD> 01/29/12 1606 | + + + +---------+ + + | Performing | Address | City/State/Zipcode | Phone Number | | Organization | | | | + +---------+ + + | [place] | | | | | [place] | | | | + +---------+ + + documented in this encounter Visit Diagnoses Not on filedocumented in this encounter"
--- OUTSIDE RECORDS SUMMARY | ~2020-07-19 | XMS | Encounter Summary ---
Demographics + + + | Address | [address] | | | [place] [address] | + + + | Home Phone | | + + + | Preferred Language | Unknown | + + + | Marital Status | | + + + | Sabianist Affiliation | NON | + + + | Race | or | + + + | Ethnic Group | Not or | + + + Author + + + | Author | [facility] | + + + | Organization | [facility] [employer] [facility] [...] Providers + +------+ + | Care Auto Rebuilder Name | Role | Phone | + +------+ + | Pedro Luis Sams MD | PCP | | + +------+ + Reason for Visit + +--------+ + | Reason | Onset | Comments | | | Date | | + +--------+ + | Medication requested | 09/01/ | | | | 2010 | | [...] | | | Ave [facility] for | [place], [place] | | | | | Health and Healing, | [address] | | | | | [facility] | [phone] | | | | | floor [place], [place] | | | | | | [address] | | | | | | [phone] | | | +--------+ + + + [...] encounter Miscellaneous Notes Telephone Encounter - Virginia Shabazz MA - 09/02/2011 12:46 PM PDTNotified the patient of the info below. Pt states that she will contact her PCP elephone Encounter - Amber Hopkins PA-C - 09/01/2011 10: 51 AM PDTDiscussed with Tatyana: in process of obtaining authorization for clinic visit to eval revision vs explantation of LP shunt. Per pain protocol and distant history of most recent clinic eval (2007), pain medications w ill not be filled by our clinic at this time. Spoke with Dr. Latrell Coleman's RN to explain protocol and pending re-consultation. Per Eleonora hummel, pt has h/o narcotic dependence and they will not write for narcotics at this time. Will defer to Dr. Sams for pain management via NSAIDs, diamox, etc. elephone Encounter - Virginia Shabazz MA - 9:39 AM PDTPatient is calling stating that she needs a refill on her pain medicati ons. Patient states that she contacted her PCP regarding the refill on the Oxycodone, but he denied it stating that she needed to contact us to get the refill. Patient has not been see n since 2007, has a referral pending. Patient states that if possible can we call something in. Advised patient that she needed to contact her PCP regarding refills, patient again sta kimi that her PCP will deny the refill. Please advise, thank you! documented in this encounter Plan of Treatment Not on filedocumented as of this encounter Visit Diagnoses Not on filedocumented in this encounter"
--- OUTSIDE RECORDS SUMMARY | ~2020-07-19 | XMS | Encounter Summary ---
Demographics + + + | Address | [address] | | | [place] [address] | + + + | Home Phone [...] + + | Author | [facility] | + + + | Organization | [facility] | + + + | Address | Unknown | + + + | Phone | Unavailable | + + + Support + + +---------+ + | Name | Relationship | Address | Phone | + + +---------+ + | Ruby Au | ECON | Unknown | | + + +---------+ + Care Team Providers + +------+ + | Care Casket Liner Name | Role | Phone | [...] | | | | | Ave Center | [place], [place] | | | | | Health and Healing, | [address] | | | | | [facility] | [phone] | | | | | floor [place], [place] | | | | | | [address] | | | | | | [phone] | | | +--------+ + + + [...]
--- OUTSIDE RECORDS SUMMARY | ~2020-07-19 | XMS | Encounter Summary ---
Demographics + + + | Address | [address] | | | [place] [address] | + + + | Home Phone [...] Team Providers + +------+ + | Care Instructor Physical Name | Role | Phone | + +------+ + PCP | Unavailable | + +------+ + Encounter Details +--------+ + + + + | Date | Type | Department | Care Team | Description | +--------+ + + + + | 11/22/ | Hospital | [facility] | | | | 1995 | Encounter | MED CTR EMERGENCY | | | | | | CENTER [address] | | | | | | [place] | | | | | | [address] | | | | | | [phone] | | | +--------+ + + + [...]
--- OUTSIDE RECORDS SUMMARY | ~2020-07-19 | XMS | Encounter Summary ---
Demographics + + + | Address | [address] | | | [place] [address] | + + + | Home Phone | | + + + | Preferred Language | Unknown | + + + | Marital Status | | + + + | Mandaen Affiliation | Unknown | + + + | Race | or | + + + | Ethnic Group | Not or | + + + Author + + + | Author | [facility] | | | and [place] | + + + | Organization | [facility] | | | and [...] Team Providers + +------+ + | Care Oracle Hyperion Consultant Name | Role | Phone | + +------+ + PCP | Unavailable | + +------+ + Encounter Details +--------+ + + + + | Date | Type | Department | Care Team | Description | +--------+ + + + + | 11/04/ | Hospital | [facility] | Unknown, | | | 2005 | Encounter | MED CTR XRAY [address] | Practitioner, MD . | | | | | [place] | | | | | | [place] [address] | (Fax) | | | | | [phone] | | | +--------+ + + + [...]
--- OUTSIDE RECORDS SUMMARY | ~2020-07-19 | XMS | Encounter Summary ---
Demographics + + + | Address | [address] | | | [place] [address] | + + + | Home Phone [...] + | Author | [facility] | + + + | Organization | [facility] [facility] [...] Team Providers + +------+ + | Care Adapted Physical Education Teacher Name | Role | Phone [...] Cerebri; | | 2006 | Visit | [place]/Ophthalmol | | Papilledema | | | | ogy at [facility] [address] | | Associated with | | | | [facility] for | | Increased | | | | Health and Healing, | | Intracranial | | | | Building | | Pressure; Transient | | | | Floor [place], [place] | | Visual Loss | | | | [address] | | | | | | [phone] | | | +--------+---------+ + + + [...] documented as of this encounter Progress Notes Ze Rushing, Muna [place]en[place] - 04/13/2007 9:11 AM PDTAttending Physician Statement: [...] HPI: 31 y.o. year old female from [place] : Patient presents with: Transient visual loss [...] seconds; these occur 2-3 x per w cahto. Hobbies: Tobacco use: reports that she has [...] patient to continue follow-up for psuedotumor w [facility] neuro-ophth. Follow up at [facility] prn new symptoms or complaints. WADE Jensen [...]
--- OUTSIDE RECORDS SUMMARY | ~2020-07-19 | XMS | Encounter Summary ---
Demographics + + + | Address | [address] | | | [place] [address] | + + + | Home Phone [...] + | Author | [facility] | + + + | Organization | [facility] [employer] [facility] | [...] Team Providers + +------+ + | Care Television Analyzer Name | Role | Phone | + +------+ + | Brenden Benavides MD | PCP | | + +------+ + Encounter Details +--------+ + + + + | Date | Type | Department | Care Team | Description | +--------+ + + + + | 02/22/ | Telephone | [facility] | Hay Hughes MD [address] | | | 2006 | | [place] | [address]EL[address]O Hammer | | | | | Oculoplastics at | [place], [place] | | | | | [address] | [address] | | | | | [address] | [phone] | | | | | [facility] [place] | | | | | | [address] | | | | | | [place] [address] | | | | | | [phone] | | | +--------+ + + + [...] to run its course-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
--- OUTSIDE RECORDS SUMMARY | ~2020-07-19 | XMS | Encounter Summary ---
Demographics + + + | Address | [address] | | | [place] [address] | + + + | Home Phone [...] Team Providers + +------+ + | Care Power Wheelchair Mechanic Name | Role | Phone | + +------+ + PCP | Unavailable | + +------+ + Encounter Details +--------+ + + + + | Date | Type | Department | Care Team | Description | +--------+ + + + + | 08/21/ | Hospital | [facility] | | | | 1991 | Encounter | MED CTR EMERGENCY | | | | | | CENTER [address] | | | | | | [place] | | | | | | [address] | | | | | | [phone] | | | +--------+ + + + [...]
--- OUTSIDE RECORDS SUMMARY | ~2020-07-19 | XMS | Encounter Summary ---
Demographics + + + | Address | [address] | | | [place] [address] | + + + | Home Phone [...] | Organization | [facility] [...] Team Providers + +------+ + | Care Fire Ranger Name | Role | Phone | + +------+ + PCP | Unavailable | + +------+ + Encounter Details +--------+ + + + + | Date | Type | Department | Care Team | Description | +--------+ + + + + | 11/22/ | Hospital | [facility] | | | | 1995 | Encounter | MED CTR EMERGENCY | | | | | | CENTER [address] | | | | | | [place] | | | | | | [address] | | | | | | [phone] | | | +--------+ + + + [...]
--- OUTSIDE RECORDS SUMMARY | ~2020-07-19 | XMS | Encounter Summary ---
Demographics + + + | Address | [address] | | | [place] [address] | + + + | Home Phone | | + + + | Preferred Language | Unknown | + + + | Marital Status | | + + + | Rastafari Affiliation | Unknown | + + + | Race | or | + + + | Ethnic Group | Not or | + + + Author + + + | Author | [facility] | | | and [place] | + + + | Organization | [facility] | | [...] Team Providers + +------+ + | Care Jig Inspector Name | Role | Phone | + +------+ + PCP | Unavailable | + +------+ + Encounter Details +--------+ + + + + | Date | Type | Department | Care Team | Description | +--------+ + + + + | 05/31/ | Hospital | [facility] | | | | 1991 | Encounter | MED CTR [facility] | | | | | | [facility]ALTH [facility] [address] | | | | | | [place], | | | | | | [place] [address] | | | | | | [phone] | | | +--------+ + + + [...]
--- OUTSIDE RECORDS SUMMARY | ~2020-07-19 | XMS | Encounter Summary ---
Demographics + + + | Address | [address] | | | [place] [address] | + + + | Home Phone [...] + + | Author | [facility] [employer] [facility] | + + + | Organization | [facility] [employer] [facility] [...] Team Providers + +------+ + | Care Operations Chief Name | Role | Phone | + +------+ + | Brenden Benavides MD | PCP | | + +------+ + Encounter Details +--------+ + + + + | Date | Type | Department | Care Team | Description | +--------+ + + + + | 02/21/ | Telephone | [facility] | [address] | | | 2006 | | [place] | [address] | | | | | Oculoplastics at | [facility], [place] | | | | | Maicol Perez [address] | [address] | | | | | [address] | | | | | | [facility] [place] | | | | | | [facility], 5th floor | | | | | | [place] [address] | | | | | | [phone] | | | +--------+ + + + [...] the Vicodin prescription to the pharmacist in [place], he asked me if I was calling [...]
--- OUTSIDE RECORDS SUMMARY | ~2020-07-19 | XMS | Encounter Summary ---
Demographics + + + | Address | [address] | | | [place] [address] | + + + | Home Phone | | + + + | Preferred Language | Unknown | + + + | Marital Status | | + + + | Restorationism Affiliation | Unknown | + + + | Race | or | + + + | Ethnic Group | Not or | + + + Author + + + | Author | [facility] | | | and [place] | + + + | Organization | [facility] | | | [...] Team Providers + +------+ + | Care Head Of English Name | Role | Phone | + +------+ + PCP | Unavailable | + +------+ + Encounter Details +--------+ + + + + | Date | Type | Department | Care Team | Description | +--------+ + + + + | 10/21/ | Hospital | [facility] | | | | 1991 | Encounter | MED CTR [facility] | | | | | | HEALTH [facility] [address] | | | | | | [place], | | | | | | [place] [address] | | | | | | [phone] | | | +--------+ + + + [...]
--- OUTSIDE RECORDS SUMMARY | ~2020-07-19 | XMS | Encounter Summary ---
Demographics + + + | Address | [address] | | | [place] [address] | + + + | Home Phone [...] Team Providers + +------+ + | Care Cubing Machine Tender Name | Role | Phone | + +------+ + PCP | Unavailable | + +------+ + Encounter Details +--------+ + + + + | Date | Type | Department | Care Team | Description | +--------+ + + + + | 03/03/ | Emergency | [facility] | Artis Reyes DO | Pain, abdominal, | | 2012 | | MEDICAL CENTER | [address] | unknown etiology | | | | EMERGENCY CENTER | [place], [place] | | | | | [address] | [address] | | | | | [place], [place] | [phone] | | | | | [address] | | | | | | [phone] | | | +--------+ + + + [...] 03/03/132032 Date of Service: 03/03/132032 Status: Signed Plastic Shaper: Jovanny Collado RN (Registered Nurse) Dr. Reyes @ BS Jovanny Collado RN 03/03/132032 onver ludwin Transaction, Provider Unknown - 03/03/2013 6:56 PM PDT ED Notes by Jovanny Collado RN at 03/03/131855 Author: Jovanny Collado RN Service: (none) Author Type: Registered Nurse Filed: 03/03/131855 Date of Service: 03/03/131855 Status: Signed Plastic Shaper: Jovanny Collado RN (Registered Nurse) Dr. Reyes @ [facility] Jovanny Collado RN 03/03/131855 rtis Reyes DO - 03/03/2013 6:55 PM PDTFormatting of this note might be different from the or iginal. ED Provider Notes by Artis Reyes DO at 03/03/131854 Author: Artis Reyes DO Service: (none) Author Type: Physician Filed: 03/04/13 223 Date of Service: 03/03/131854 Status: Signed Plastic Shaper: Artis Reyes DO (Physician) [facility] Department of Emergency Medicine 6:55 PM History [...] ncludes; cholecystectomy, appendectomy, and one . PCP: [facility] Past Medical History Diagnosis Date Diabetes mellitus [...] sore throat CV/Resp: Negative for chest pain, fauzuzwmo-mt-gusrjw, cough GI: Negative for diarrhea Positive for [...] plan. Records Reviewed Nursing notes. No previous [facility] ED visits available in [facility] for review. Laboratory Evaluation Results Procedure Component Value Ref Range Date/Time Comprehensive metabolic panel [[id number]] (Abnormal) Collected:03/03/131922 Order Status:Completed Updated:03/03/131953 Specimen Information:Blood [...] 65 U/L EGFR >60 >60 mL/min/1.73m2 Lipase [[id number]] Collected:03/03/131922 Order Status:Completed Updated:03/03/131953 Specimen Information:Blood LIPASE 177 73 - 393 U/L Urine test (LAB) [[id number]] Collected:03/03/131939 Order Status:Completed Updated:03/03/131950 Specimen Information:Urine Preg Test, Ur NEGATIVE POC clinitek 10 [[id number]] (Abnormal) Collected:03/03/131940 Order Status:Completed Updated:03/03/131943 Color, UA [...] WBC, UA NEGATIVE NEGATIVE CBC with differential [[id number]] Collected:03/03/131922 Order Status:Completed Updated:03/03/131935 Specimen Information:Blood WBC [...] Follow up With Details Comments Contact Info [facility] As needed [address] [facility] [address] [facility] EMERGENCY DEPARTMENT If symptoms worsen [address] [facility] [address] Discharge Medications: New Prescriptions DICYCLOMINE (BENTYL) 20 MG TABLET Take 1 tablet by mouth every 6 (six) hours. HYDROCODONE-ACETAMINOPHEN (VICODIN) 5-500 MG PER TABLET Take 1-2 tablets by mouth every 6 (six) hours as needed for Pain. Additional Documentation Procedures Attending Note: Documentation assistance provided by Sean Ortez (Scribe). Information recorded by the scribe has been reviewed and validated by me. I jane nolasco with its contents. DO Artis Max DO 03/04/13 2237 documented in this en counter Plan of Treatment Not on filedocumented as of this encounter Visit Diagnoses + + | Diagnosis | + + | Pain, abdominal, unknown etiology Abdominal pain, unspecified site | + + documented in this encounter
--- OUTSIDE RECORDS SUMMARY | ~2020-07-19 | XMS | Encounter Summary ---
Demographics + + + | Address | [address] | | | [place] [address] | + + + | Home Phone [...] + + | Author | [facility] | + + + | Organization | [facility] [facility] [...] Team Providers + +------+ + | Care Home Aide Name | Role | Phone | [...] Dx) | | | | Ave [facility] | [place], [place] | | | | | Health and Healing, | [address] | | | | | Building [address], [address] | [phone] | | | | | floor [place], [place] | | | | | | [address] | | | | | | [phone] | | | +--------+---------+ + + + [...]
--- OUTSIDE RECORDS SUMMARY | ~2020-07-19 | XMS | Encounter Summary ---
Demographics + + + | Address | [address] | | | [place] [address] | + + + | Home Phone [...] | Author | [facility] [employer] [facility] | + + + | Organization | [facility] [place] [employer] [facility] | + [...] Team Providers + +------+ + | Care Roofer Helper Vinyl Coating Name | Role | Phone | + +------+ + | Yeison Simms MD | PCP | Unavailable | + +------+ + Reason for Visit + +--------+ + | Reason | Onset | Comments | | | Date | | + +--------+ + | Prescription | 05/03/ | for hospital bed | | | 2007 | | + [...] ) | | | | Physician's | [place], [place] | | | | | [facility], [facility] floor | [address] | | | | | [place], [place] | [phone] | | | | | [address] | | | | | | [phone] | | | +--------+ + + + [...] this encounter Miscellaneous Notes Telephone Encounter - J Carlos Nice - 05/07/2008 10:42 AM PDTSurgery is today. Will addre ss medication needs in-house. P DTTelephone Encounter - Delma Cadet - 05/03/2008 10:35 AM PDTPt states that [facility]. She is requesting that Dr. Pedroza write her a prescription for a hosptial bed so she can have it after her surgery on Tuesday05/07/08. If the prescription is approved, please fax to attn: Jessenia [phone]. Please call pt back on her cell phone if approved or denied. She is hoping to get the bed r equested stanislav since surgery is on Tuesday. 08 10:35 AM PDTdocumented in this encounter Plan of Treatment Not on filedocumented as of this encounter Visit Diagnoses Not on filedocumented in this encounter"
--- OUTSIDE RECORDS SUMMARY | ~2020-07-19 | XMS | Encounter Summary ---
Demographics + + + | Address | [address] | | | [place] [address] | + + + | Home Phone | | + + + | Preferred Language | Unknown | + + + | Marital Status | | + + + | Mandaeism Affiliation | NON | + + + | Race | or | + + + | Ethnic Group | Not or | + + + Author + + + | Author | [facility] [employer] [facility] [place] | + + + | Organization | [facility] [employer] [facility] [...] Team Providers + +------+ + | Care Edge Dyer Name | Role | Phone | + [...] | | | [facility] for | [place], [place] | | | | | Health and Healing, | [address] | | | | | [facility] | [phone] | | | | | floor [place], [place] | | | | | | [address] | | | | | | [phone] | | | +--------+ + + + [...]
--- OUTSIDE RECORDS SUMMARY | ~2020-07-19 | XMS | Encounter Summary ---
Demographics + + + | Address | [address] | | | [place] [address] | + + + | Home Phone [...] Team Providers + +------+ + | Care Podiatric Medicine Professor Name | Role | Phone | + +------+ + PCP | Unavailable | + +------+ + Encounter Details +--------+ + + + + | Date | Type | Department | Care Team | Description | +--------+ + + + + | 10/20/ | Hospital | [facility] | | | | 1999 | Encounter | MED CTR EMERGENCY | | | | | | CENTER [address] | | | | | | [place] | | | | | | [address] | | | | | | [phone] | | | +--------+ + + + [...]
--- OUTSIDE RECORDS SUMMARY | ~2020-07-19 | XMS | Encounter Summary ---
Demographics + + + | Address | [address] | | | [place] [address] | + + + | Home Phone | | + + + | Preferred Language | Unknown | + + + | Marital Status | | + + + | Uatsdin Affiliation | NON | + + + | Race | or | + + + | Ethnic Group | Not or | + + + Author + + + | Author | [facility] [employer] [facility] | + + + | Organization | [facility] [employer] [facility] | + [...] Team Providers + +------+ + | Care Interactive Project Manager Name | Role | Phone [...] | | [place] Mailcode:OP14B | Sandra Maloney [place], | | | | | [employer] | [place] [address] | | | | | [place], [place] | | | | | | [address] | | | | | | [phone] | | | +--------+ + + + [...]
--- OUTSIDE RECORDS SUMMARY | ~2020-07-19 | XMS | Encounter Summary ---
Demographics + + + | Address | [address] | | | [place] [address] | + + + | Home Phone | | + + + | Preferred Language | Unknown | + + + | Marital Status | | + + + | Sikhism Affiliation | Unknown | + + + [...] Team Providers + +------+ + | Care Geophysical Operator Name | Role | Phone | + +------+ + PCP | Unavailable | + +------+ + Encounter Details +--------+ + + + + | Date | Type | Department | Care Team | Description | +--------+ + + + + | 04/20/ | Hospital | [facility] | | | | 1995 | Encounter | MED CTR EMERGENCY | | | | | | CENTER [address] | | | | | | [place] | | | | | | [address] | | | | | | [phone] | | | +--------+ + + + [...]
--- OUTSIDE RECORDS SUMMARY | ~2020-07-19 | XMS | Encounter Summary ---
Demographics + + + | Address | [address] | | | [place] [address] | + + + | Home Phone [...] + + | Author | [facility] | + + + | Organization | [facility] | + + + | Address | Unknown | + + + | Phone | Unavailable | + + + Support + + +---------+ + | Name | Relationship | Address | Phone | + + +---------+ + | Ruby Au | ECON | Unknown | | + + +---------+ + Care Team Providers + +------+ + | Care Cistern Room Working Supervisor Name | Role | Phone | [...] | Visit | Medicine Clinic at | HOSE SUSPENDER CUTTER [address] [facility] | Pre-Operative | | | | [facility] 4th Floor [address] | Examination (Primary | | | | [address] | [place], [place] | Dx); Pseudotumor | | | | Mailcode: CH4S | [phone] | Cerebri; Encounter | | | | [facility] | [phone] | for Long-Term | | | | and Healing, | | (Current) Use of | | | | Building 1,4th Floor | | Anticoagulants | | | | [place], [place] | | | | | | [address] | | | | | | [phone] | | | +--------+---------+ + + + [...] [facility] [address] [facility],4th [place] [phone] documented in this encou nter Plan of Treatment + + +--------+ + + | Name | Type | Priori | Associated Diagnoses | Order Schedule | | | | ty | | | + + +--------+ + + | TN COLLECTION VENOUS | Procedures | Routin | [...] DEPARTMENT OF | [address] | [place] [address] | | | PATHOLOGY | [address] | | | + + + + + | [facility] DEPARTMENT OF | [address] [facility] | [place] [address] | | | PATHOLOGY | [address] [...] | 29.5Comment: | 26.0 - 36.0 | [facility] | | | | APTT Therapeutic Range [...] | + + + + + | [facility] | [address] [place] [address] | [place] [address] | | | PATHOLOGY | [address] | | | + + + + + | [facility] | [address] [facility] | [place] [address] | | | PATHOLOGY | [address] [...] | + + + + + | [facility] DEPARTMENT OF | [address] | [place] [address] | | | PATHOLOGY | [address] | | | + + + + + | [facility] DEPARTMENT OF | [address] | [place] [address] | | | PATHOLOGY | [address] [...] | + + + + + | [facility] DEPARTMENT OF | [address] [facility] | [place] [address] | | | PATHOLOGY | [address] | | | + + + + + | [facility] DEPARTMENT OF | [address] [facility] | [place] [address] | | | PATHOLOGY | [address] [...] Performed At | + + + | [id number] Estimated GFR > 60 mL/min/1.73 sq m if non- | [facility] | | Iraqi [id number] Estimated GFR > 60 mL/min/1.73 sq m if | DEPARTMENT OF | | Iraqi GFR is estimated using the MDRD equation [...] | + + + + + | [facility] | [address] | [place] [address] | | | PATHOLOGY | [address] | | | + + + + + | [facility] DEPARTMENT OF | [address] | [place] [address] | | | PATHOLOGY | [address] [...] | + + + + + | [facility] DEPARTMENT | [address] [place] [address] | [place] [address] | | | PATHOLOGY | [address] | | | + + + + + | [facility] DEPARTMENT OF | [facility] | [place] [address] | | | PATHOLOGY | [address] | | | + + + + + documented in this encounter Visit Diagnoses + + | Diagnosis | + + | Other specified pre-operative examination - Primary | + + | Pseudotumor cerebri Benign intracranial hypertension | + + | long term care social worker (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
--- OUTSIDE RECORDS SUMMARY | ~2020-07-19 | XMS | Encounter Summary ---
Demographics + + + | Address | [address] | | | [place] [address] | + + + | Home Phone [...] | Author | [facility] [employer] [facility] | + + + | Organization | [facility] [email or web address] [facility] | + + + | Address | Unknown | + + + | Phone | Unavailable | + + + Support + + +---------+ + | Name | Relationship | Address | Phone | + + +---------+ + | Ruby Au | ECON | Unknown | | + + +---------+ + Care Team Providers + +------+ + | Care Production Supv Name | Role | Phone | + [...] 2008 | | [address] | ,PhD [address] | | | | | Rd Mailcode:OP14B | [address] | | | | | [facility] | [place], [place] | | | | | [place], [place] | [address] | | | | | [address] | [phone] | | | | | [phone] | | | +--------+ + + + [...] resent to the ED either locally in [place] or here at [facility] to be evaluated for her headach es. documented in th is encounter Plan of Treatment Not on filedocumented as of this encounter Visit Diagnoses Not on filedocumented in this encounter"
--- OUTSIDE RECORDS SUMMARY | ~2020-07-19 | XMS | Encounter Summary ---
Demographics + + + | Address | [address] | | | [place] [address] | + + + | Home Phone [...] + | Author | [facility] | + + + | Organization | [facility] [...] Team Providers + +------+ + | Care Chorus Dancer Name | Role | Phone | + +------+ + | Yeison Simms MD | PCP | Unavailable | + +------+ + Reason for Visit + +--------+ + | Reason | Onset | Comments | | | Date | | + +--------+ + | Refill Request | 08/28/ | | | | 2008 | | + +--------+ + Encounter Details +--------+--------+ + + + | Date | Type | Department | Care Team | Description | +--------+--------+ + + + | 08/28/ | Refill | Neurosurgery at | Kiki Rosen, | Refill Request | | 2007 | | [facility] | [place] [facility] | | | | | and Healing [address] | Neurosurgery [address] | | | | | [address] [facility] | [address] | | | | | Health and Healing, | [place], [place] | | | | | Building | [address] | | | | | Floor [place], [place] | | | | | | [address] | | | | | | [phone] | | | +--------+--------+ + + + [...] Miscellaneous Notes Telephone Encounter - Kiki Rosen 08/28/2008 1:13 PM PDTNorco #[id number] called in today.El ectronically signed by Kiki Rosen at 08/28/2008 1:13 PM PDTdocumented in this encounter Plan of Treatment Not on filedocumented as of this encounter Visit Diagnoses Not on filedocumented in this encounter"
--- OUTSIDE RECORDS SUMMARY | ~2020-07-19 | XMS | Encounter Summary ---
Demographics + + + | Address | [address] | | | [place] [address] | + + + | Home Phone | | + + + | Preferred Language | Unknown | + + + | Marital Status | | + + + | Jehovah'S Witness Affiliation | Unknown | + + + | Race | or | + + + | Ethnic Group | Not or | + + + Author + + + | Author | [facility] | | | and [place] | + + + | Organization | [facility] [...] Providers + +------+ + | Care Chief Pilot Name | Role | Phone | + +------+ + PCP | Unavailable | + +------+ + Encounter Details +--------+ + + + + | Date | Type | Department | Care Team | Description | +--------+ + + + + | 07/30/ | Hospital | [facility] | | | | 2008 - | Encounter | MED CTR MED ONC | | | | | | [address] | | | | 08/02/ | | [place] [address] | | | | 2008 | | [phone] | | | +--------+ + + + [...]
--- OUTSIDE RECORDS SUMMARY | ~2020-07-19 | XMS | Encounter Summary ---
Demographics + + + | Address | [address] | | | [place] [address] | + + + | Home Phone | | + + + | Preferred Language | Unknown | + + + | Marital Status | | + + + | Baptist Affiliation | NON | + + + | Race | or | + + + | Ethnic Group | Not or | + + + Author + + + | Author | [facility] [employer] [facility] | + + + | Organization | [facility] [employer] [facility] | [...] Team Providers + +------+ + | Care Infantry Assaultman Name | Role | Phone | + +------+ + | Pedro Luis Sams MD | PCP | | + +------+ + Encounter Details +--------+ + + + + | Date | Type | Department | Care Team | Description | +--------+ + + + + | 08/31/ | Telephone | [facility] | Leticia Pitts MD | | | 2010 | | [place]/Ophthalmol | | | | | | ogy at [facility] [address] | | | | | | [address] [facility] | | | | | | Health and Healing, | | | | | | Building | | | | | | Floor [place], [place] | | | | | | [address] | | | | | | [phone] | | | +--------+ + + + [...] repeat exam. Leticia Pitts M.D. Ophthalmology Resident [facility] documented in this encou nter Plan of Treatment Not on filedocumented as of this encounter Visit Diagnoses Not on filedocumented in this encounter"
--- OUTSIDE RECORDS SUMMARY | ~2020-07-19 | XMS | Encounter Summary ---
Demographics + + + | Address | [address] | | | [place] [address] | + + + | Home Phone [...] + + + | Author | [facility] [employer] [facility] | + + + | Organization | [facility] [employer] [facility] | + + + | Address | Unknown | + + + | Phone | Unavailable | + + + Support + + +---------+ + | Name | Relationship | Address | Phone | + + +---------+ + | Ruby Au | ECON | Unknown | | + + +---------+ + Care Team Providers + +------+ + | Care Beam Warper Name | Role | Phone | + [...] Ave | | | | | [facility] | [place], [place] | | | | | Health and Healing, | [address] | | | | | [facility] | [phone] | | | | | floor [place], [place] | | | | | | [address] | | | | | | [phone] | | | +--------+ + + + [...]
--- OUTSIDE RECORDS SUMMARY | ~2020-07-19 | XMS | Encounter Summary ---
Demographics + + + | Address | [address] | | | [place] [address] | + + + | Home Phone [...] + | Author | [facility] | + + + | Organization | [facility] | [...] Team Providers + +------+ + | Care Lamp Replacer Name | Role | Phone | + [...] | Headache | | 2005 | | [place]/Ophthalmol | MD Jordin | | | | | leon at [facility] [address] | | | | | | [address] [facility] | | | | | | Health and Healing, | | | | | | Building | | | | | | Floor [place], [place] | | | | | | [address] | | | | | | [phone] | | | +--------+ + + + [...] Notes Telephone Encounter - Steve Rushing, Kiki Brenner - 11/13/2006 5:48 PM PSTPt called b/c she could not find a ride to [place] for an exam. She lives 4 hours away and questioned whether it was necessary to be seen emergently. She took 2 Diamox last night (total 1000mg at night, 500 i n the AM) and felt more tingling in her extremities, but thought her headache improved. She was still experiencing occassional tunnel vision. I recommended that she see a doctor if h er sypmtoms do not improve, and that see go to the nearest emergency department if she canno t make it to [facility]. She expressed her understanding. BRYAN WILSON MD Ophthalmology Resident Physician [facility] documented in this en counter Plan of Treatment Not on filedocumented as of this encounter Visit Diagnoses Not on filedocumented in this encounter"
--- OUTSIDE RECORDS SUMMARY | ~2020-07-19 | XMS | Encounter Summary ---
Demographics + + + | Address | [address] | | | [place] [address] | + + + | Home Phone [...] + + | Author | [facility] | + + + | Organization | [facility] | + [...] Providers + +------+ + | Care Automotive Worker Foreman Name | Role | Phone | + +------+ + | Brenden Benavides MD | PCP | | + +------+ + Encounter Details +--------+ + + + + | Date | Type | Department | Care Team | Description | +--------+ + + + + | 09/28/ | Documentati | [facility] | Brad Currie MD | | | 2006 | on | [place] | | | | | | Neuro-Ophthalmology | | | | | | [address] | | | | | | Mailcode: PATTI | | | | | | [place] [address] | | | | | | [phone] | | | +--------+ + + + [...] this encounter Miscellaneous Notes Telephone Encounter - Brad Currie - 09/28/2006 4:31 PM PSTEver since she stopped the Diam ox, she has had vision trouble. Sometimes her vision gets black and is shadowy and this occ urs anytime and nothing provokes it. She stopped the Diamox on 09/19/06. She is having occ asional headaches, but they are the same as prior to stopping medication. She is not having typical transient visual obscurations or pulsatile tinnitus. I told her to stay off of the Diamox until her appointment in 3 weeks. She continued to tell me that she used to be able to see 20/20, but I relayed to her that s he saw 20/20 for me last week. She relayed to me how perplexed she was about this since she has always seen poorly at her other doctors appointments. I told her that I was equally pe rplexed since she saw well for me. She is going to keep her next appointment and not take D iamox for now. Brad Currie MD Neuro-Ophthalmology and Cerebrovascular Disease Combustion Engineer of Ophthalmology, Neurology, and Neurosurgery documented in this encounter Plan of Treatment Not on filedocumented as of this encounter Visit Diagnoses Not on filedocumented in this encounter"
--- OUTSIDE RECORDS SUMMARY | ~2020-07-19 | XMS | Encounter Summary ---
Demographics + + + | Address | [address] | | | [place] [address] | + + + | Home Phone [...] | Author | [facility] [employer] [facility] | + + + | Organization | [facility] [employer] [facility] | + [...] Team Providers + +------+ + | Care Cattle Tester Name | Role | Phone | + +------+ + | Brenden Benavides MD | PCP | | + +------+ + Reason for Visit +--------+--------+ + | Reason | Onset | Comments | | | Date | | +--------+--------+ + | Other | 09/06/ | | | | 2006 | | +--------+--------+ + Encounter Details +--------+ + + + + | Date | Type | Department | Care Team | Description | +--------+ + + + + | 09/06/ | Telephone | Neurosurgery [address] | J Carlos Nice, | Other | | 2005 | | [facility] | PA-C [address] | | | | | Rd Mailcode:OP14B | [place], [place] | | | | | [facility] | [id number] | | | | | [place], [place] | | | | | | [address] | | | | | | [phone] | | | +--------+ + + + [...] Notes Telephone Encounter - Monica Paz - 09/06/2006 4:30 PM PDTMs. Roe called and maurisio bolden to let you know that she did not have an infection in her back and so would like to have the shunt done. Please call and she will explain it all to you. Her # is [phone]. Barb documented in this e ncounter Plan of Treatment Not on filedocumented as of this encounter Visit Diagnoses Not on filedocumented in this encounter"
--- OUTSIDE RECORDS SUMMARY | ~2020-07-19 | XMS | Encounter Summary ---
Demographics + + + | Address | [address] | | | [place] [address] | + + + | Home Phone [...] Author | [facility] [employer] [facility] | + + + | Organization | [facility] [employer] [facility] | + + + | Address | Unknown | + + + | Phone | Unavailable | + + + Support + + +---------+ + | Name | Relationship | Address | Phone | + + +---------+ + | Ruby Au | ECON | Unknown | | + + +---------+ + Care Team Providers + +------+ + | Care Full Fashioned Garment Knitter Name | Role | Phone | + [...] | | | | | [address] | [address] | | | | | Health and Healing, | [place], [place] | | | | | | [address] | | | | | Floor [place], [place] | | | | | | [address] | | | | | | [phone] | | | +--------+ + + + [...]
--- OUTSIDE RECORDS SUMMARY | ~2020-07-19 | XMS | Encounter Summary ---
Demographics + + + | Address | [address] | | | [place] [address] | + + + | Home Phone | | + + + | Preferred Language | Unknown | + + + | Marital Status | | + + + | Uatsdin Affiliation | NON | + + + | Race | or | + + + | Ethnic Group | Not or | + + + Author + + + | Author | [facility] | + + + | Organization | [facility] [employer] [facility] [...] Team Providers + +------+ + | Care Policy Specialist Name | Role | Phone | + +------+ + | Yeison Simms MD | PCP | Unavailable | + +------+ + Reason for Visit + +--------+ + | Reason | Onset | Comments | | | Date | | + +--------+ + | CAPONE - Headache | 12/23/ | | | | 2008 | | [...] | | | Ave [facility] for | [place], [place] | | | | | Health and Healing, | [address] | | | | | Building | [phone] | | | | | floor [place], [place] | | | | | | [address] | | | | | | [phone] | | | +--------+ + + + [...] Encounter - Kiki Rosen PA - 12/24/2008 3:02 PM [employer] company says to try again later. No voicemail available. Will try later. eleph one Encounter - Mandi Mcdonnell - 12/23/2008 1:53 PM PSTPt called today stating she has had a very bad CAPONE for 3 days with no relief from pain meds. She denies nausea, vomiting, dizzine ss or vision changes. She would also like to discuss signs of shunt malfuntion to know what to look for. Please call and advise. 1: 53 PM PSTdocumented in this encounter Plan of Treatment Not on filedocumented as of this encounter Visit Diagnoses Not on filedocumented in this encounter"
--- OUTSIDE RECORDS SUMMARY | ~2020-07-19 | XMS | Clinical Summary ---
Demographics + + + | Address | [address] | | | [place] [address] | + + + | Home Phone [...] Team Providers + +------+ + | Care Audio Visual Specialist Name | Role | Phone | + +------+ + | Dennis Maddox | PCP | | + +------+ + Source Comments REBECA is fully live on both [facility] Amb[facility] and [facility] InPatient.[facility] Allergies + + + [...] a day for 1 | | | 2/20 | | e | | tabletIndications: | [...] + + Plan of Treatment + + +-------+ + | Health Maintenance | Due Date | Last | Comments | | | | Done | | + + +-------+ + | Pneumococcal | | | | | vaccination (1 of 1 | 1 | | | | - PPSV23) | | | | + + +-------+ + | Influenza (Flu) | | | | | vaccination (#1) | 9 | | | + + +-------+ + Results Not on filefrom Last 3 Months Insurance + +--------+ +--------+ + +--------+ | Payer | Benefi | Subscriber | Effect | Phone | Address | Type | | | t Plan | ID | greg | | | | | | / | | Dates | | | | | | Group | | | | | | + +--------+ +--------+ + +--------+ | [place] | OHP | [id number] | | [phone] | [address] | [address] | | | PLUS | | [phone] | id | | | OPEN | | esent | | [place], [place] | | | | CARD | | | | [phone] | | + +--------+ +--------+ + +--------+ + +--------+ +--------+ + + | Guarantor Name | Accoun | Relation to | Date | Phone | Billing Address | | | t Type | Patient | of | | | | | | | | | | + +--------+ +--------+ + + | Annabella Au | Person | Self [birth year] | [address] | | | al/Fam | | 1975 | [phone] | [place] [address] | | | rene | | | 9 (Home) | | + +--------+ +--------+ + + Advance Directives + + + + + | Type | Date Recorded | Patient | Explanation | | | | Nurse'S Companion | | + + + + + | Advance | | | | | Directives and | | | | | Living Will | | | | + + + + + | Power of | | | | | Portfolio Consultant | | | | + + [...]
--- OUTSIDE RECORDS SUMMARY | ~2020-07-19 | XMS | Encounter Summary ---
Demographics + + + | Address | [address] | | | [place] [address] | + + + | Home Phone [...] + + | Author | [facility] | + + + | Organization | [facility] [...] Team Providers + +------+ + | Care Case Resource Manager Name | Role | Phone | [...] | | | | | Physician's | [place], [place] | | | | | [place], 2nd floor | [address] | | | | | [place], [place] | [phone] | | | | | [address] | | | | | | [phone] | | | +--------+ + + + [...]
--- OUTSIDE RECORDS SUMMARY | ~2020-07-19 | XMS | Encounter Summary ---
Demographics + + + | Address | [address] | | | [place] [address] | + + + | Home Phone [...] | [facility] | | | and [place] | + + + | Organization | [facility] [...] Providers + +------+ + | Care Director Marketing Name | Role | Phone | + +------+ + PCP | Unavailable | + +------+ + Encounter Details +--------+ + + + + | Date | Type | Department | Care Team | Description | +--------+ + + + + | 10/27/ | Hospital | [facility] | | | | 1990 | Encounter | MED CTR EMERGENCY | | | | | | CENTER [address] | | | | | | [place] | | | | | | [address] | | | | | | [phone] | | | +--------+ + + + [...]
--- OUTSIDE RECORDS SUMMARY | ~2020-07-19 | XMS | Encounter Summary ---
Demographics + + + | Address | [address] | | | [place] [address] | + + + | Home Phone | | + + + | Preferred Language | Unknown | + + + | Marital Status | | + + + | Evangelical Affiliation | NON | + + + | Race | or | + + + | Ethnic Group | Not or | + + + Author + + + | Author | [facility] | + + + | Organization | [facility] [employer] [facility] | + + [...] Providers + +------+ + | Care Flight Attendant Name | Role | Phone | [...] [address] | | | | | | [facility] | | | | | | [place], [place] | | | | | | [address] | | | | | | [phone] | | | +--------+ + + + [...] AM PDTdocumented in this encounter Miscellaneous Notes [facility] Cindy Polo - 03/09/2013 1:20 PM PDTRef [...] her shunt is actually malfuctioning. HOLD [facility] - Macy Jacques - 03/09/2013 1:17 PM PDTPatient was supposed to be ED referral, now is being admitt ed at [facility], Dr. Cooney calling for consult, possible transfer. Paged Dr. Pedroza. El ectronically signed by Macy Jacques at 03/09/2013 1:[facility] PM [facility] Mary[facility] Mathew - 03/09/2013 11:[address] Veras, 37 yo f , second hand to Dr Holland from [facility], document ed in this encounter Plan of Treatment Not on filedocumented as of this encounter Visit Diagnoses Not on filedocumented in this encounter"
--- OUTSIDE RECORDS SUMMARY | ~2020-07-19 | XMS | Encounter Summary ---
Demographics + + + | Address | [address] | | | [place] [address] | + + + | Home Phone [...] + | Author | [facility] | + + + | Organization | [facility] [employer] [facility] | [...] Team Providers + +------+ + | Care Museum Curator Name | Role | Phone | + [...] | | Haider Mailcode:OP14B | Sandra Maloney [place], | | | | | [place] | [place] [address] | | | | | [place], [place] | | | | | | [address] | | | | | | [phone] | | | +--------+ + + + [...]
--- OUTSIDE RECORDS SUMMARY | ~2020-07-19 | XMS | Encounter Summary ---
Demographics + + + | Address | [address] | | | [place] [address] | + + + | Home Phone [...] + + | Author | [facility] | + + + | Organization | [facility] | + [...] Team Providers + +------+ + | Care Mirror Silverer Name | Role | Phone | + [...] | Headache | | 2005 | | [place]/Ophthalmol | MD Jordin | | | | | leon at [facility] [address] | | | | | | [facility] | | | | | | Health and Healing, | | | | | | Building | | | | | | Floor [place], [place] | | | | | | [address] | | | | | | [phone] | | | +--------+ + + + [...] she cannot find a ride to a [place] tonight, and that she cannot make [...] Donohue. BRYAN WILSON MD Ophthalmology Resident Physician [facility] documented in this en counter Plan of Treatment Not on filedocumented as of this encounter Visit Diagnoses Not on filedocumented in this encounter
--- OUTSIDE RECORDS SUMMARY | ~2020-07-19 | XMS | Encounter Summary ---
Demographics + + + | Address | [address] | | | [place] [address] | + + + | Home Phone [...] + | Author | [facility] | + + + | Organization | [facility] | + + + | Address | Unknown | + + + | Phone | Unavailable | + + + Support + + +---------+ + | Name | Relationship | Address | Phone | + + +---------+ + | Ruby Au | ECON | Unknown | | + + +---------+ + Care Team Providers + +------+ + | Care National Sales Associate Name | Role | Phone | [...] | | Haider Mailcode:OP14B | Sandra Maloney [place], | | | | | [facility] | [place] [address] | | | | | [place], [place] | | | | | | [address] | | | | | | [phone] | | | +--------+ + + + [...] note in you r In Basket in [employer]. Annabella's # is [phone]. documented in this encounter Plan of Treatment Not on filedocumented as of this encounter Visit Diagnoses Not on filedocumented in this encounter"
--- OUTSIDE RECORDS SUMMARY | ~2020-07-19 | XMS | Encounter Summary ---
Demographics + + + | Address | [address] | | | [place] [address] | + + + | Home Phone [...] Organization | [facility] [...] Team Providers + +------+ + | Care Trailer Technician Name | Role | Phone | + +------+ + PCP | Unavailable | + +------+ + Encounter Details +--------+ + + + + | Date | Type | Department | Care Team | Description | +--------+ + + + + | 08/03/ | Hospital | [facility] | | | | 1990 | Encounter | MED CTR EMERGENCY | | | | | | CENTER [address] | | | | | | [place] | | | | | | [address] | | | | | | [phone] | | | +--------+ + + + [...]
--- OUTSIDE RECORDS SUMMARY | ~2020-07-19 | XMS | Encounter Summary ---
Demographics + + + | Address | [address] | | | [place] [address] | + + + | Home Phone [...] | Author | [facility] | + + + | Organization | [facility] [facility] | + + + | Address | Unknown | + + + | Phone | Unavailable | + + + Support + + +---------+ + | Name | Relationship | Address | Phone | + + +---------+ + | Ruby Au | ECON | Unknown | | + + +---------+ + Care Team Providers + +------+ + | Care Concrete Panel Installer Name | Role | Phone | [...] [address] | | | | | | [facility] | | | | | | Health and Healing, | | | | | | Building | | | | | | floor [place], [place] | | | | | | [address] | | | | | | [phone] | | | +--------+ + + + [...] Telephone Encounter - Steph Reyes MD - 03/10/2013 8:57 PM PDTCalled by pt stating that Tuesday (yesterday) she was supposed to go to the [facility] ED for a dislodged LPS and havi ng blurred vision and bad CAPONE every day. She states she s also retaining water somewher e and doesn t know where . She continues to describe her water retention and when asked what we can do to help her, she starts crying and says I need help, I don t know what to do and the hospitals down here can t help me . I stated that we re happy to see he r if she s able to get to [facility]. Because she inquired, I made clear we cannot help her tra nsport here or evaluate her over the phone. She states she didn t make her Tuesday appt as she had what sounds to be an upper endoscopy to eval for H pylori and the doctor who did th at kept her overnight. She also states she will try to get to [facility] near here. documented i n this encounter Plan of Treatment Not on filedocumented as of this encounter Visit Diagnoses Not on filedocumented in this encounter"
--- OUTSIDE RECORDS SUMMARY | ~2020-07-19 | XMS | Encounter Summary ---
Demographics + + + | Address | [address] | | | [place] [address] | + + + | Home Phone [...] Providers + +------+ + | Care Heel Molder Name | Role | Phone | + +------+ + PCP | Unavailable | + +------+ + Encounter Details +--------+ + + + + | Date | Type | Department | Care Team | Description | +--------+ + + + + | 07/24/ | Hospital | [facility] | | | | 1990 | Encounter | MED CTR EMERGENCY | | | | | | CENTER [address] | | | | | | [place] | | | | | | [address] | | | | | | [phone] | | | +--------+ + + + [...]
--- OUTSIDE RECORDS SUMMARY | ~2020-07-19 | XMS | Encounter Summary ---
Demographics + + + | Address | [address] | | | [place] [address] | + + + | Home Phone | | + + + | Preferred Language | Unknown | + + + | Marital Status | | + + + | Rastafarian Affiliation | Unknown | + + + | Race | or | + + + | Ethnic Group | Not or | + + + Author + + + | Author | [facility] | | | and [place] | + + + | Organization | [facility] | | | [...] Team Providers + +------+ + | Care Stone Finisher Name | Role | Phone | + +------+ + PCP | Unavailable | + +------+ + Encounter Details +--------+ + + + + | Date | Type | Department | Care Team | Description | +--------+ + + + + | 10/04/ | Hospital | [facility] | | | | 1991 | Encounter | MED CTR WOMENS | | | | | | HEALTH SVCS [address] | | | | | | [place], | | | | | | [place] [address] | | | | | | [phone] | | | +--------+ + + + [...]
--- OUTSIDE RECORDS SUMMARY | ~2020-07-19 | XMS | Encounter Summary ---
Demographics + + + | Address | [address] | | | [place] [address] | + + + | Home Phone [...] + + + | Author | [facility] | + + + | Organization | [facility] [...] Providers + +------+ + | Care Livestock Nutritionist Name | Role | Phone | + [...] | | | [address] [facility] for | [place], [place] | | | | | Health and Healing, | [address] | | | | | [facility] | [phone] | | | | | floor [place], [place] | | | | | | [address] | | | | | | [phone] | | | +--------+---------+ + + + [...]
--- OUTSIDE RECORDS SUMMARY | ~2020-07-19 | XMS | Encounter Summary ---
Demographics + + + | Address | [address] | | | [place] [address] | + + + | Home Phone [...] + + | Author | [facility] | + + + | Organization | [facility] [employer] [facility] | + [...] Team Providers + +------+ + | Care Dish Room Worker Name | Role | Phone | [...] | Health and Healing, | [facility] | | | | | Building | [place], [place] | | | | | floor [place], [place] | [address] | | | | | [address] | | | | | | [phone] | | | +--------+---------+ + + + [...]
--- OUTSIDE RECORDS SUMMARY | ~2020-07-19 | XMS | Encounter Summary ---
Demographics + + + | Address | [address] | | | [place] [address] | + + + | Home Phone [...] + + | Author | [facility] | + + + | Organization | [facility] [employer] [facility] | + + [...] Providers + +------+ + | Care Insurance Legal Assistant Name | Role | Phone [...] + + | 06/24/ | Emergency | [facility] Emergency | | | | 2010 | | Department [address] | | | | | | [address] | | | | | | [facility] | | | | | | [place], [place] | | | | | | [address] | | | | | | [phone] | | | +--------+ + + + [...]
--- OUTSIDE RECORDS SUMMARY | ~2020-07-19 | XMS | Encounter Summary ---
Demographics + + + | Address | [address] | | | [place] [address] | + + + | Home Phone [...] Team Providers + +------+ + | Care Telecom Analyst Name | Role | Phone | + +------+ + PCP | Unavailable | + +------+ + Encounter Details +--------+ + + + + | Date | Type | Department | Care Team | Description | +--------+ + + + + | 04/24/ | Hospital | [facility] | | | | 1991 | Encounter | MED CTR EMERGENCY | | | | | | CENTER [address] | | | | | | [place] | | | | | | [address] | | | | | | [phone] | | | +--------+ + + + [...]
--- OUTSIDE RECORDS SUMMARY | ~2020-07-19 | XMS | Encounter Summary ---
Demographics + + + | Address | [address] | | | [place] [address] | + + + | Home Phone [...] | Organization | [facility] [...] Providers + +------+ + | Care Service Worker Helper Name | Role | Phone | + +------+ + PCP | Unavailable | + +------+ + Encounter Details +--------+ + + + + | Date | Type | Department | Care Team | Description | +--------+ + + + + | 10/14/ | Hospital | [facility] | | | | 1991 | Encounter | MED CTR [facility] | | | | | | HEALTH [facility] [address] | | | | | | [place], | | | | | | [place] [address] | | | | | | [phone] | | | +--------+ + + + [...]
--- OUTSIDE RECORDS SUMMARY | ~2020-07-19 | XMS | Encounter Summary ---
Demographics + + + | Address | [address] | | | [place] [address] | + + + | Home Phone [...] + | Author | [facility] | + + + | Organization | [facility] [facility] [...] Team Providers + +------+ + | Care Adoption Services Manager Name | Role | Phone | + +------+ + | Brenden Benavides MD | PCP | | + +------+ + Encounter Details +--------+ + + + + | Date | Type | Department | Care Team | Description | +--------+ + + + + | 02/23/ | Telephone | [facility] | Brad Currie MD | | | 2006 | | [place] | | | | | | Neuro-Ophthalmology | | | | | | [address] [facility] | | | | | | Mailcode: PATTI | | | | | | [place] [address] | | | | | | [phone] | | | +--------+ + + + [...] seen immediately. Due to patient being in [place] I advised her to contact her oph thalmologist in [place] for immediate appointment. Patient said she would do this. Sergio Alicia Neuro Drawer Liner for MD Julieta Nielson MD documented in th is encounter Plan of Treatment Not on filedocumented as of this encounter Visit Diagnoses Not on filedocumented in this encounter"
--- OUTSIDE RECORDS SUMMARY | ~2020-07-19 | XMS | Encounter Summary ---
Demographics + + + | Address | [address] | | | [place] [address] | + + + | Home Phone [...] + | Author | [facility] | + + + | Organization | [facility] | + + + | Address | Unknown | + + + | Phone | Unavailable | + + + Support + + +---------+ + | Name | Relationship | Address | Phone | + + +---------+ + | Ruby Au | ECON | Unknown | | + + +---------+ + Care Team Providers + +------+ + | Care Tin Plater Name | Role | Phone | + [...] | Headache | | 2005 | | [place]/Ophthalmol | MD Jordin | | | | | leon at [facility] [address] | | | | | | [address] | | | | | | Health and Healing, | | | | | | Building | | | | | | Floor [place], [place] | | | | | | [address] | | | | | | [phone] | | | +--------+ + + + [...] she cannot find a ride to a [employer] augor tonight, and that she cannot make [...] Donohue. BRYAN WILSON MD Ophthalmology Resident Physician [facility] documented in this en counter Plan of Treatment Not on filedocumented as of this encounter Visit Diagnoses Not on filedocumented in this encounter
--- OUTSIDE RECORDS SUMMARY | ~2020-07-19 | XMS | Encounter Summary ---
Demographics + + + | Address | [address] | | | [place] [address] | + + + | Home Phone [...] Team Providers + +------+ + | Care Forensic Investigator Name | Role | Phone | + +------+ + PCP | Unavailable | + +------+ + Encounter Details +--------+ + + + + | Date | Type | Department | Care Team | Description | +--------+ + + + + | 09/30/ | Hospital | [facility] | | | | 1991 | Encounter | MED CTR [facility] | | | | | | HEALTH [facility] [address] | | | | | | [place], | | | | | | [place] [address] | | | | | | [phone] | | | +--------+ + + + [...]
--- OUTSIDE RECORDS SUMMARY | ~2020-07-19 | XMS | Encounter Summary ---
Demographics + + + | Address | [address] | | | [place] [address] | + + + | Home Phone [...] Author | [facility] | + + + | Organization | [facility] [employer] [facility] | + + + | Address | Unknown | + + + | Phone | Unavailable | + + + Support + + +---------+ + | Name | Relationship | Address | Phone | + + +---------+ + | Ruby Au | ECON | Unknown | | + + +---------+ + Care Team Providers + +------+ + | Care Mule Spinner Name | Role | Phone | + [...] | | | | | [facility] | [address] | | | | | Health and Healing, | [place], [place] | | | | | | [address] | | | | | Floor [place], [place] | | | | | | [address] | | | | | | [phone] | | | +--------+ + + + [...]
--- OUTSIDE RECORDS SUMMARY | ~2020-07-19 | XMS | Encounter Summary ---
Demographics + + + | Address | [address] | | | [place] [address] | + + + | Home Phone [...] + | Organization | [facility] | [...] Providers + +------+ + | Care Pulp Maker Name | Role | Phone | + +------+ + PCP | Unavailable | + +------+ + Encounter Details +--------+ + + + + | Date | Type | Department | Care Team | Description | +--------+ + + + + | 07/19/ | Hospital | [facility] | Vern [place], | | | 1990 - | Encounter | MED CTR MED ONC | MD [address] | | | | | [address] | [place] | | | 07/21/ | | [place] [address] | [address] | | | 1990 | | [phone] | | | +--------+ + + + [...]
--- OUTSIDE RECORDS SUMMARY | ~2020-07-19 | XMS | Encounter Summary ---
Demographics + + + | Address | [address] | | | [place] [address] | + + + | Home Phone | | + + + | Preferred Language | Unknown | + + + | Marital Status | | + + + | Yazidi Affiliation | Unknown | + + + [...] Team Providers + +------+ + | Care Stroke Belt Sander Operator Name | Role | Phone | [...] | | MEDICAL CENTER | [place] [address] | intracranial | | | | EMERGENCY CENTER | [address] | hypertension; Back | | | | [address] | [place] [address] | pain | | | | [place], [place] | [phone] | | | | | [address] | | | | | | [phone] | | | +--------+ + + + [...] 07/10/132043 Date of Service: 07/10/132043 Status: Signed Music Arranger: Magdiel Jansen RN (Registered Nurse) Pt stated [...] 07/10/132041 Date of Service: 07/10/132024 Status: Signed Music Arranger: Magdiel Jansen RN (Registered Nurse) Returned from radiology. Tolerated procedure well. Magdiel Jansen RN 07/10/132041 onver ludwin Transaction, Provider Unknown - 07/10/2013 8:02 PM PDT ED Notes by Magdiel Jansen RN at 07/10/132001 Author: Magdiel Jansen RN Service: (none) Author Type: Registered Nurse Filed: 07/10/132002 Date of Service: 07/10/132001 Status: Signed Music Arranger: Magdiel Jansen RN (Registered Nurse) Pt transported to radiology via gurney with tech. Magdiel Jansen RN 07/10/132002 erry Negro MD - 07/10/2013 7:29 PM PDTFormatting of this note might be different from th e original. ED Provider Notes by Anoop Flores MD at 07/10/131928 Author: Anoop Flores MD Service: (none) Author Type: Physician Filed: 07/10/132239 Date of Service: 07/10/131928 Status: Signed Music Arranger: Anoop Flores MD (Physician) [facility] Department of Emergency Medicine History of Present [...] shown by XR with her Dr in [place] earlier in the year. Reports grad ual [...] et. Care prior to arrival consisted of Rover twice daily, with no relief. Patient cannot catarina e NSAIDS. Patient[place] shunt [place] [address] [place] in [facility] [place], for Hydrocephalus. Patient stat es she had no problems with it until this year. Patient has been having headaches all year. Patient lives in [place], spoke with the Neurosurgeon supervisor chlorine liquefaction, and was told to [facility]surgeon. PCP: [facility] Past Medical History Diagnosis Date Diabetes mellitus [...] Value Ref Range Date/Time Comprehensive metabolic panel [[id number]] (Abnormal) Collected:07/10/131946 Order Status:Completed Updated:07/10/132010 Specimen Information:Blood [...] EGFR >60 >60 mL/min/1.73m2 CBC with differential [[id number]] (Abnormal) Collected:07/10/131946 Order Status:Completed Updated:07/10/131953 Specimen Information:Blood [...] Morris MD Follow up this week [address] [facility] [address] [facility] [address] [facility] Follow up next week [address] [place] [address] [facility] Emergency Department If symptoms worsen [address] [facility] [address] Discharge Medications: New Prescriptions No new medications Additional Documentation Procedures Attending Note: Documentation assistance provided by Jade Burgos (Scribe). Information recorded by the scribe has been reviewed and validated by . Simon nolasco with its contents. Anoop Flores MD 07/10/13 1010 onversio n Transaction, Provider Unknown - 07/10/2013 6:15 PM PDTFormatting of this note might be di fferent from the original. ED Notes by Magdiel Jansen RN at 07/10/131814 Author: Magdiel Jansen RN Service: (none) Author Type: Registered Nurse Filed: 07/10/131938 Date of Service: 07/10/131814 Status: Signed Music Arranger: Magdiel Jansen RN (Registered Nurse) Bed side [...] | + + + | ANNABELLA Waters [facility] CT HEAD WO CONTRAST HISTORY: 37 [...]
--- OUTSIDE RECORDS SUMMARY | ~2020-07-19 | XMS | Encounter Summary ---
Demographics + + + | Address | [address] | | | [place] [address] | + + + | Home Phone [...] Team Providers + +------+ + | Care Packager Hand Name | Role | Phone | [...] left hand | [address] | | | | n | Weakness of | [address] | [place], | | | | | both hands | [place], | [place] [address] | | | | | Mass of left | [place] [address] | Phone: | | | | | wrist Pain | Phone: | [phone] | | | | | of right | [phone] | Fax: | | | | | thumb | Fax: | [phone] | | | | | Trigger | [phone] | | | | | | finger of | | | | | | | right thumb | | | | | | | Procedures | | | | | | | HI MOTOR | | | | | | | &/SENS /> | | | | | | | NRV CNDJ | | | | | | | PRECONF | | | | | | | ELTRODE LIMB | | | | | | | HI NEEDLE | | | | | | [...] | | | | | Trigger | [address] | [address] | | | | | finger of | [place], | [place] | | | | | right thumb | [place] [address] | [address] | | | | | | Phone: | Phone: | | | | | | [phone] | [phone] | | | | | | Fax: | Fax: | | | | | | [phone] | [phone] | +--------+ + + + + + [...] | | Rehabilitatio | tunnel | PA-C [address] | [address] | | | | n | syndrome on | | [place], | | | | | left | [place] | [place] [address] | | | | | | [address] | Phone: | | | | | | [place], | [phone] | | | | | | [place] [address] | Fax: | | | | | | Phone: | [phone] | | | | | | [phone] | | | | | | | Fax: | | | | | | | [phone] | | +--------+--------+ + + + + Encounter Details +--------+---------+ + + + | Date | Type | Department | Care Team | Description | +--------+---------+ + + + | 01/03/ | Office | [facility] | Amanuel Jennings, | Numbness of left | | 2018 | Visit | PHYSIATRY [address] | MD [address] | hand (Primary Dx); | | | | [address] | [place], [place] | Weakness of both | | | | [place], [place] | [address] | hands; Mass of left | | | | [address] | | wrist; Pain of right | | | | [phone] | | thumb; Trigger | | | [...] encounter Patient Instructions Patient Instructions Adelaide Santa, Patient Centered Care Specialist - 01/03/2019 1:00 PM PSTConmaurice t o [...] Her numbness does wake her from sleep. Annbaella Au reports weakness. She describe her upper [...] disorder Diabetes mellitus type 2 in obese ([facility]) Gastroesophageal reflux disease Heroin dependence ([facility]) Hoarse Hypertensive disorder Insomnia with sleep apnea IV drug abuse ([facility]) Low back strain Numbness of left hand Obstructive sleep apnea of adult Opioid dependence on agonist therapy ([facility]) Other chronic pain Panic disorder without agoraphobia with severe panic attacks Polysubstance dependence ([facility]) Sedative, hypnotic or anxiolytic dependence, in remission ([facility]) Tobacco user Trigger finger of [...] wrist dorsiflexion , finger abduction, and right etl informatica architect. 4/5 hand etl informatica architect on the left Reflexes: 2+ normal and [...] scribed by in my presence, Adelaide Santa, Patient Centered Care Specialist and are both accurate and comp lete. [...]
--- OUTSIDE RECORDS SUMMARY | ~2020-07-19 | XMS | Encounter Summary ---
Demographics + + + | Address | [address] | | | [place] [address] | + + + | Home Phone [...] | Organization | [facility] [...] + + | 08/01/ | Hospital | [facility] | | | | 1991 | Encounter | [facility] | | | | | | [facility] [address] | | | | | | [place], | | | | | | [place] [address] | | | | | | [phone] | | | +--------+ + + + [...]
--- OUTSIDE RECORDS SUMMARY | ~2020-07-19 | XMS | Encounter Summary ---
Demographics + + + | Address | [address] | | | [place] [address] | + + + | Home Phone [...] + | Author | [facility] [employer] [facility] | + + + | Organization | [facility] [employer] [facility] [...] + +------+ + | Care Sales And Marketing Assistant Name | Role | Phone | [...] Cerebri | | 2006 | Visit | [place] | | (Primary Dx) | | | | Neuro-Ophthalmology | | | | | | [address] [facility] | | | | | | Mailcode: CE | | | | | | [place] [address] | | | | | | [phone] | | | +--------+---------+ + + + [...] Referred by: CASIMIRO PAYTON MD [address] [place] [address] Symptoms: She has not been taking her [...] Brad Currie MD Neuro-Ophthalmology and Cerebrovascular Disease Portfolio Administrator of Ophthalmology, Neurology, and Neurosurgery documented in [...]
--- OUTSIDE RECORDS SUMMARY | ~2020-07-19 | XMS | Encounter Summary ---
Demographics + + + | Address | [address] | | | [place] [address] | + + + | Home Phone [...] Team Providers + +------+ + | Care Thermograph Operator Name | Role | Phone | + +------+ + PCP | Unavailable | + +------+ + Encounter Details +--------+ + + + + | Date | Type | Department | Care Team | Description | +--------+ + + + + | 01/15/ | Hospital | [facility] | Marine Leonard | | | 2011 | Encounter | [facility] | [facility] | | | | | CENTER [address] | [place], [place] | | | | | [place] | [address] | | | | | [address] | | | | | | [phone] | | | +--------+ + + + [...] with chief complaint of a headache. The patie nt states that she was recently in [place] and saw her neurologist. She said she had some tests done in September and October, and said that her ELECTRICIAN LOCOMOTIVE shunt was no longer in place. She [...] s tates that she was seen at [place] today for her headache, but she states [...] states that she was seen twice in [place] and was given some sort of medicine, but s he does know the name of it, but it did not help her headache and so she came here for to [place] further treatment. Apparently when she was at [place], she had received some morphine on one [...] to pseudotumor cerebri a nd having a ELECTRICIAN LOCOMOTIVE shunt placed. Again, she states that the [...] the ER without difficulty. DICTATED BY: Vidal Leonard DO Emergency Medicine JOB #: [id number] EXT JOB #:[id number] <Electronicall y Signed by Jt Leonard DO> 01/21/12 1454 documented in this encounter Plan of Treatment Not on filedocumented as of this encounter Visit Diagnoses Not on filedocumented in this encounter"
--- OUTSIDE RECORDS SUMMARY | ~2020-07-19 | XMS | Encounter Summary ---
Demographics + + + | Address | [address] | | | [place] [address] | + + + | Home Phone [...] + + + | Author | [facility] [employer] [facility] | + + + | Organization | [facility] [employer] [facility] | + [...] Team Providers + +------+ + | Care Packaging Mechanic Name | Role | Phone | [...] | Headache | | 2005 | | Delta/Ophthalmol | MD Jordin | | | | | leon at [facility] [address] | | | | | | [facility] | | | | | | [facility] and Healing, | | | | | | Building | | | | | | Floor [place], [place] | | | | | | [address] | | | | | | [phone] | | | +--------+ + + + [...] she could not find a ride to [place] for an exam. She lives 4 hours [...] understanding. BRYAN WILSON MD Ophthalmology Resident Physician [facility] documented in this en counter Plan of Treatment Not on filedocumented as of this encounter Visit Diagnoses Not on filedocumented in this encounter"
--- OUTSIDE RECORDS SUMMARY | ~2020-07-19 | XMS | Encounter Summary ---
Demographics + + + | Address | [address] | | | [place] [address] | + + + | Home Phone [...] | Author | [facility] [facility] | + + + | Organization | [facility] [employer] [facility] | + [...] Team Providers + +------+ + | Care Comb Fixer Name | Role | Phone | + [...] | | | | | | | [address] | | | | | | | [facility] | | | | | | | [place], | | | | | | | [address] [place] [address] | | | | | | | [place], [place] | | | | | | | [address] Phone: | | | | | | | [phone] | | | | | | | Fax: | | | | | | | [phone] | +--------+--------+ + + + + Encounter Details +--------+ + + + + | Date | Type | Department | Care Team | Description | +--------+ + + + + | 03/26/ | Procedure | [facility] | | Visual field testing | | 2012 | | [place] [facility] | | | | | | [facility] at [facility] [address] | | | | | | [address] [facility] | | | | | | for Heatl and | | | | | | Healing, [address], | | | | | | 11th Floor | | | | | | [place], [place] | | | | | | [address] | | | | | | [phone] | | | +--------+ + + + [...] Au was seen in the [facility] [place] [facility] Department today, 2012, for 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 documented in this encounter Plan of Treatment Not on filedocumented as of this encounter Procedures + +--------+ + + + | Procedure Name | Priori | Date/Time | Associated Diagnosis | Comments | | | ty | | | | + +--------+ + + + | MO VISUAL FIELD | Routin | 03/26/2013 | [...]
--- OUTSIDE RECORDS SUMMARY | ~2020-07-19 | XMS | Encounter Summary ---
Demographics + + + | Address | [address] | | | [place] [address] | + + + | Home Phone | | + + + | Preferred Language | Unknown | + + + | Marital Status | | + + + | Restoration Affiliation | NON | + + + | Race | or | + + + | Ethnic Group | Not or | + + + Author + + + | Author | [facility] [employer] [facility] | + + + | Organization | [facility] [employer] [facility] | [...] Providers + +------+ + | Care Head Silverman Name | Role | Phone | + [...] | | | | | Building | [place], [place] | | | | | floor [place], [place] | [address] | | | | | [address] | | | | | | [phone] | | | +--------+---------+ + + + [...]
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
--- OUTSIDE RECORDS SUMMARY | ~2020-07-19 | XMS | Encounter Summary ---
Demographics + + + | Address | [address] | | | [place] [address] | + + + | Home Phone [...] + | Author | [facility] [employer] [facility] | + + + | Organization | [facility] [employer] 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
--- OUTSIDE RECORDS SUMMARY | ~2020-07-19 | XMS | Encounter Summary ---
Demographics + + + | Address | [address] | | | [place] [address] | + + + | Home Phone [...] + | Author | [facility] [employer] [facility] | + + + | Organization | [facility] [employer] [facility] [...] Team Providers + +------+ + | Care Fill Plant Operator Name | Role | Phone [...] | | | | | [facility] for | [address] | | | | | Health and Healing, | [place], [place] | | | | | | [address] | | | | | Floor [place], [place] | | | | | | [address] | | | | | | [phone] | | | +--------+ + + + [...] 06/04/2009 2:50 PM PDTSp[facility] spoke with her [facility] prior. Having incisional [...]
--- OUTSIDE RECORDS SUMMARY | ~2020-07-19 | XMS | Encounter Summary ---
Demographics + + + | Address | [address] | | | [place] [address] | + + + | Home Phone [...] + | Organization | [facility] | [...] Team Providers + +------+ + | Care Dress Finisher Name | Role | Phone | + +------+ + PCP | Unavailable | + +------+ + Encounter Details +--------+ + + + + | Date | Type | Department | Care Team | Description | +--------+ + + + + | 09/30/ | Hospital | [facility] | | | | 1990 | Encounter | MED CTR EMERGENCY | | | | | | CENTER [address] | | | | | | [place] | | | | | | [address] | | | | | | [phone] | | | +--------+ + + + [...]
--- OUTSIDE RECORDS SUMMARY | ~2020-07-19 | XMS | Clinical Summary ---
Demographics + + + | Address | [address] | | | [place] [address] | + + + | Home Phone [...] Team Providers + +------+ + | Care Slab Depiler Operator Name | Role | Phone | + +------+ + | Dennis Maddox | PCP | | + +------+ + Source Comments REBECA is fully live on both [facility] Amb[facility] and [facility] InPatient.[facility] Allergies + + + + [...] +--------+ | MEDICAID [place] | OHP | [id number] | | [phone] | [address] | Medica | | | PLUS | | [phone] | id | | | OPEN | | esent | | [place], [place] | | | | CARD | | | | [phone] | | + +--------+ +--------+ + +--------+ [...] | 1975 | [phone] | [place] [address] | | | rene | | | 9 (Home) | | + +--------+ +--------+ + + Advance Directives + + + + + | Type | Date Recorded | Patient | Explanation | | | | Refrigerating Engineer Head | | + + + + + | Advance | | | | | Directives and | | | | | Living Will | | | | + + + + + | Power of | | | | | Master Control Engineer | | | | + + + [...]
--- OUTSIDE RECORDS SUMMARY | ~2020-07-19 | XMS | Encounter Summary ---
Demographics + + + | Address | [address] | | | [place] [address] | + + + | Home Phone [...] + + | Author | [facility] | + + + | Organization | [facility] | + [...] Team Providers + +------+ + | Care Practice Management Consultant Name | Role | Phone | [...] | | | Ave Center for | [place], [place] | | | | | Health and Healing, | [address] | | | | | [facility] | [phone] | | | | | floor [place], [place] | | | | | | [address] | | | | | | [phone] | | | +--------+---------+ + + + [...] wanted to have LP shunt instead of GIS ENGINEER shunt because she d oes not [...]
--- OUTSIDE RECORDS SUMMARY | ~2020-07-19 | XMS | Encounter Summary ---
Demographics + + + | Address | [address] | | | [place] [address] | + + + | Home Phone [...] Author | [facility] [employer] [facility] | + + + | Organization | [facility] [employer] [facility] | + [...] Team Providers + +------+ + | Care Youth Advocate Name | Role | Phone | [...] + + | 06/24/ | Emergency | [facility] Emergency | | | | 2010 | | Department [address] | | | | | | [address] | | | | | | [facility] | | | | | | [place], [place] | | | | | | [address] | | | | | | [phone] | | | +--------+ + + + [...]
--- OUTSIDE RECORDS SUMMARY | ~2020-07-19 | XMS | Encounter Summary ---
Demographics + + + | Address | [address] | | | [place] [address] | + + + | Home Phone [...] + | Organization | [facility] | [...] Providers + +------+ + | Care Air Tucker Name | Role | Phone | + +------+ + PCP | Unavailable | + +------+ + Encounter Details +--------+ + + + + | Date | Type | Department | Care Team | Description | +--------+ + + + + | 05/15/ | Hospital | [facility] | | | | 1991 | Encounter | MED CTR XRAY [address] | | | | | | [address] | | | | | | [place] [address] | | | | | | [phone] | | | +--------+ + + + [...]
--- OUTSIDE RECORDS SUMMARY | ~2020-07-19 | XMS | Encounter Summary ---
Demographics + + + | Address | [address] | | | [place] [address] | + + + | Home Phone [...] Organization | [facility] [...] Providers + +------+ + | Care Machine Installer Name | Role | Phone | + +------+ + PCP | Unavailable | + +------+ + Encounter Details +--------+ + + + + | Date | Type | Department | Care Team | Description | +--------+ + + + + | 06/10/ | Hospital | [facility] | | | | 1991 | Encounter | MED CTR WOMENS | | | | | | HEALTH [facility] [address] | | | | | | [place], | | | | | | [place] [address] | | | | | | [phone] | | | +--------+ + + + [...]
--- OUTSIDE RECORDS SUMMARY | ~2020-07-19 | XMS | Encounter Summary ---
Demographics + + + | Address | [address] | | | [place] [address] | + + + | Home Phone [...] Team Providers + +------+ + | Care Networking Technology Instructor Name | Role | Phone | + +------+ + PCP | Unavailable | + +------+ + Encounter Details +--------+ + + + + | Date | Type | Department | Care Team | Description | +--------+ + + + + | 09/07/ | Hospital | [facility] | | | | 1991 | Encounter | MED CTR EMERGENCY | | | | | | CENTER [address] | | | | | | [place] | | | | | | [address] | | | | | | [phone] | | | +--------+ + + + [...]
--- OUTSIDE RECORDS SUMMARY | ~2020-07-19 | XMS | Encounter Summary ---
Demographics + + + | Address | [address] | | | [place] [address] | + + + | Home Phone [...] | Author | [facility] [employer] [facility] | + + + | Organization | [facility] rumr: turn off the lights [employer] [facility] | + + + | Address | Unknown | + + + | Phone | Unavailable | + + + Support + + +---------+ + | Name | Relationship | Address | Phone | + + +---------+ + | Ruby Au | ECON | Unknown | | + + +---------+ + Care Team Providers + +------+ + | Care Tax Accounting Manager Name | Role | Phone | [...] Dx) | | | | [facility] | [place], [place] | | | | | Health and Healing, | [address] | | | | | Building [address] | [phone] | | | | | floor [place], [place] | | | | | | [address] | | | | | | [phone] | | | +--------+---------+ + + + [...]
--- OUTSIDE RECORDS SUMMARY | ~2020-07-19 | XMS | Encounter Summary ---
Demographics + + + | Address | [address] | | | [place] [address] | + + + | Home Phone [...] | Organization | [facility] [...] Team Providers + +------+ + | Care Jazz Singer Name | Role | Phone | + +------+ + PCP | Unavailable | + +------+ + Encounter Details +--------+ + + + + | Date | Type | Department | Care Team | Description | +--------+ + + + + | 01/27/ | Hospital | [facility] | Marine Oden | | | 2011 - | Encounter | MED CTR EMERGENCY | DO Gaurang Drake | | | | | CENTER [address] | [place], [place] | | | 01/28/ | | [place], [place] | [address] | | | 2011 | | [address] | | | | | | [phone] | | | +--------+ + + + [...] her discharge instructions with referral to a handbag designer for the rash, as well as a prescription for tramadol, including a home pack of it, and some Zofran. She walked out before evaluation was complete . Therefore, please add to the discharge diagnosi s, left before evaluation complete. DICTATED BY: Vern Carlin M.D. Emergency Medicine JOB #: [id number] EXT JOB #:[id number] <Electronicall y Signed by Vern Carlin MD> 02/07/12 0734 Vern Carlin MD - 01/28/2012 10:55 PM PSTDATE: 01/28/2012 CHIEF COMPLAINT: Headache and rash. HISTORY OF PRESENT ILLNESS: Annabella is a 36-year-old female, states she has had what sounds like a michelle tricular or a MINOR LEAGUE BASEBALL PLAYER shunt placed for hydrocephalus several years ago. [...] want to go to the ER in [place], as she has had bad experience with [...] Vern Carlin M.D. Emergency Medicine JOB #: [id number] EXT JOB #:[id number] <Electronicall y Signed by Vren Carlin MD> 02/07/12 0734 documented in this [...] Performed At | + + + | [facility] | [facility] | | [address] [facility] | [facility] | | UNENHANCED HEAD CT, 01/28/2012, | [...] COMMUNICATED TO THE ER STAFF BY THE [facility] RADIOLOG IST ON | | | 01/29/2012 AT 0003 HOURS. Dictated Date/Time: 01/29/2012 09:41 | | | Transcribed Date/Time: 01/29/2012 09:47 Life Scientist: | | | <Electronically Signed by Ivan Smalls MD> 01/29/12 1606 | | + + + + + | Procedure Note | + + | Neal, Rad Conversion - 01/04/2014 4:51 PM [facility] | | Diagnostic Imaging Department [address] [place] [address] | | UNENHANCED HEAD CT, 01/28/2012, 2342 [...] THE ER STAFF BY | | [facility] ON 01/29/2012 AT 0003 HOURS. [...] 09:41 | |Transcribed Date/Time: 01/29/2012 09:47 | |Life Scientist: | |<Electronically Signed by Ivan Smalls MD> [...]
--- OUTSIDE RECORDS SUMMARY | ~2020-07-19 | XMS | Encounter Summary ---
Demographics + + + | Address | [address] | | | [place] [address] | + + + | Home Phone [...] + + | Author | [facility] [facility] | + + + | Organization | [facility] [employer] [facility] | + [...] + +------+ + | Care Food Service Technician Name | Role | Phone [...] | | Haider Mailcode:[id number] | [place], | | | | | [facility] | [place] [address] | | | | | [place], [place] | | | | | | [address] | | | | | | [phone] | | | +--------+ + + + [...] to be increasing. Her phone # is [phone]. documented in this encou nter Plan of Treatment Not on filedocumented as of this encounter Visit Diagnoses Not on filedocumented in this encounter"
--- OUTSIDE RECORDS SUMMARY | ~2020-07-19 | XMS | Encounter Summary ---
Demographics + + + | Address | [address] | | | [place] [address] | + + + | Home Phone [...] | Organization | [facility] [...] Team Providers + +------+ + | Care Mva Reactor Operator Head Name | Role | Phone | + +------+ + PCP | Unavailable | + +------+ + Encounter Details +--------+ + + + + | Date | Type | Department | Care Team | Description | +--------+ + + + + | 05/25/ | Hospital | [facility] | | | | 1991 | Encounter | MED CTR WOMENS | | | | | | HEALTH [facility] [address] | | | | | | [place], | | | | | | [place] [address] | | | | | | [phone] | | | +--------+ + + + [...]
--- OUTSIDE RECORDS SUMMARY | ~2020-07-19 | XMS | Encounter Summary ---
Demographics + + + | Address | [address] | | | [place] [address] | + + + | Home Phone [...] Team Providers + +------+ + | Care Admeasurer Name | Role | Phone | + +------+ + PCP | Unavailable | + +------+ + Encounter Details +--------+ + + + + | Date | Type | Department | Care Team | Description | +--------+ + + + + | 09/30/ | Hospital | [facility] | | | | 1991 | Encounter | MED CTR WOMENS | | | | | | HEALTH [facility]CS [address] | | | | | | [place], | | | | | | [place] [address] | | | | | | [phone] | | | +--------+ + + + [...]
--- OUTSIDE RECORDS SUMMARY | ~2020-07-19 | XMS | Encounter Summary ---
Demographics + + + | Address | [address] | | | [place] [address] | + + + | Home Phone [...] | Organization | [facility] [...] Team Providers + +------+ + | Care Purification Director Name | Role | Phone | [...] | | | | 1991 | | [place] [address] | | | | | | [phone] | | | +--------+ + + + [...]
--- OUTSIDE RECORDS SUMMARY | ~2020-07-19 | XMS | Encounter Summary ---
Demographics + + + | Address | [address] | | | [place] [address] | + + + | Home Phone [...] | [facility] [employer] [facility] | + + + | Organization | [facility] [employer] [facility] [...] Team Providers + +------+ + | Care Apprentice Jockey Name | Role | Phone | + [...] | | | | | hypertension | [place], [place] | [place] | | | | | Procedures | [address] | [address] | | | | | REQUEST TO | Phone: | Phone: | | | | | SURGERY | [phone] | [phone] | | | | | AUTOMATIC BRINE MIXER OPERATOR | Fax: | Fax: | | | | | [place] INSTALL | [phone] | [phone] | | | | | SPINAL | [...] Ave | | | | | [facility] | [place], [place] | | | | | Health and Healing, | [address] | | | | | [facility] | [phone] | | | | | floor [place], [place] | | | | | | [address] | | | | | | [phone] | | | +--------+ + + + [...]
--- OUTSIDE RECORDS SUMMARY | ~2020-07-19 | XMS | Encounter Summary ---
Demographics + + + | Address | [address] | | | [place] [address] | + + + | Home Phone [...] Organization | [facility] [...] Providers + +------+ + | Care Technical Account Executive Name | Role | Phone | + +------+ + PCP | Unavailable | + +------+ + Encounter Details +--------+ + + + + | Date | Type | Department | Care Team | Description | +--------+ + + + + | 01/15/ | Hospital | [facility] | Marine Leonard | | | 2011 | Encounter | MED CTR EMERGENCY | Vidal Gaurang BILL | | | | | CENTER [address] | [place], [place] | | | | | [place] | [address] | | | | | [address] | | | | | | [phone] | | | +--------+ + + + [...] nt states that she was [place] and saw [place] neurologist. She said she had some tests done in September and October, and said that her LINE SERVICE TECHNICIAN shunt was no longer in place. She [...] s tates that she was seen at [place] today for her headache, but she states [...] states that she was seen twice in [place] and was given some sort of medicine, but s he does know the name of it, but it did not help her headache and so she came here for to s [place] further treatment. Apparently when she was at [place], she had received some morphine on one [...] to pseudotumor cerebri a nd having a LINE SERVICE TECHNICIAN shunt placed. Again, she states that the [...] Vidal Leonard DO Emergency Medicine JOB #: [id number] [id number] JOB #:[id number] <Electronicall y Signed by Jt Leonard DO> 01/21/12 1454 documented in this encounter Plan of Treatment Not on filedocumented as of this encounter Visit Diagnoses Not on filedocumented in this encounter"
--- OUTSIDE RECORDS SUMMARY | ~2020-07-19 | XMS | Encounter Summary ---
Demographics + + + | Address | [address] | | | [place] [address] | + + + | Home Phone [...] Organization | [facility] [...] Team Providers + +------+ + | Care Splitter Operator Name | Role | Phone | + +------+ + PCP | Unavailable | + +------+ + Encounter Details +--------+ + + + + | Date | Type | Department | Care Team | Description | +--------+ + + + + | 09/03/ | Hospital | [facility] | | | | 1991 | Encounter | MED CTR WOMENS | | | | | | HEALTH [facility]CS [address] | | | | | | [place], | | | | | | [place] [address] | | | | | | [phone] | | | +--------+ + + + [...]
--- OUTSIDE RECORDS SUMMARY | ~2020-07-19 | XMS | Encounter Summary ---
Demographics + + + | Address | [address] | | | [place] [address] | + + + | Home Phone [...] + + | Author | [facility] [employer] [facility] | + + + | Organization | [facility] [employer] [facility] | + + + | Address | Unknown | + + + | Phone | Unavailable | + + + Support + + +---------+ + | Name | Relationship | Address | Phone | + + +---------+ + | Ruby Au | ECON | Unknown | | + + +---------+ + Care Team Providers + +------+ + | Care Magnetic Doctor Name | Role | Phone | + [...] 08/14/ | Refill | Neurosurgery at | Sma Pedroza MD | Refill Request | | 2007 | | [facility] [address] | [address] | | | | | Ave [place] for | [place], [place] | | | | | Health and Healing, | [address] | | | | | [facility] | [phone] | | | | | floor [place], [place] | | | | | | [address] | | | | | | [phone] | | | +--------+--------+ + + + [...] AM PDTLori called in an Rx for [place] for pt however the pharm called back with some questions. Ky said she will talk to Teresa lopez about this pt as we have never perscribed this drug. elephone Encounter - Mandi Mcdonnell - 08/14/2008 8:16 AM PDTPt wo uld like an RX for [place]. doc umented in this encounter Plan of Treatment Not on filedocumented as of this encounter Visit Diagnoses Not on filedocumented in this encounter"
--- OUTSIDE RECORDS SUMMARY | ~2020-07-19 | XMS | Encounter Summary ---
Demographics + + + | Address | [address] | | | [place] [address] | + + + | Home Phone [...] Author | [facility] [employer] [facility] | + + + | Organization | [facility] [employer] [facility] | [...] Team Providers + +------+ + | Care Trimming Machine Operator Name | Role | Phone [...] | | Haider Mailcode:OP14B | Sandra Maloney [place], | | | | | [facility] | [place] [address] | | | | | [place], [place] | | | | | | [address] | | | | | | [phone] | | | +--------+ + + + [...] to be increasing. Her phone # is [phone]. documented in this encou nter Plan of Treatment Not on filedocumented as of this encounter Visit Diagnoses Not on filedocumented in this encounter"
--- OUTSIDE RECORDS SUMMARY | ~2020-07-19 | XMS | Encounter Summary ---
Demographics + + + | Address | [address] | | | [place] [address] | + + + | Home Phone [...] | Organization | [facility] [...] Team Providers + +------+ + | Care Quill Winder Name | Role | Phone | [...] | | | CENTER [address] | [facility] | | | | | [address] [place] | [place] [address] | | | | | [address] | [phone] | | | | | [phone] | | | +--------+ + + + [...]
--- OUTSIDE RECORDS SUMMARY | ~2020-07-19 | XMS | Encounter Summary ---
Demographics + + + | Address | [address] | | | [place] [address] | + + + | Home Phone [...] Providers + +------+ + | Care Stock Turner Name | Role | Phone | + +------+ + PCP | Unavailable | + +------+ + Encounter Details +--------+ + + + + | Date | Type | Department | Care Team | Description | +--------+ + + + + | 05/21/ | Hospital | [facility] | | | | 1991 | Encounter | MED CTR WOMENS | | | | | | HEALTH [facility]CS [address] | | | | | | [place], | | | | | | [place] [address] | | | | | | [phone] | | | +--------+ + + + [...]
--- OUTSIDE RECORDS SUMMARY | ~2020-07-19 | XMS | Encounter Summary ---
Demographics + + + | Address | [address] | | | [place] [address] | + + + | Home Phone [...] Team Providers + +------+ + | Care Briar Shop Supervisor Name | Role | Phone | + +------+ + PCP | Unavailable | + +------+ + Encounter Details +--------+ + + + + | Date | Type | Department | Care Team | Description | +--------+ + + + + | 10/04/ | Hospital | [facility] | | | | 1991 | Encounter | MED CTR [facility] | | | | | | HEALTH [facility] [address] | | | | | | [place], | | | | | | [place] [address] | | | | | | [phone] | | | +--------+ + + + [...]
--- OUTSIDE RECORDS SUMMARY | ~2020-07-19 | XMS | Encounter Summary ---
Demographics + + + | Address | [address] | | | [place] [address] | + + + | Home Phone [...] | Author | [facility] [employer] [facility] | + + + | Organization | [facility] [employer] [facility] [...] Providers + +------+ + | Care Machine Operator Packaging Name | Role | Phone | + +------+ + | Pedro Luis Sams MD | PCP | | + +------+ + Encounter Details +--------+ + + + + | Date | Type | Department | Care Team | Description | +--------+ + + + + | 08/31/ | Telephone | [facility] | Leticia Pitts MD | | | 2010 | | [place]/Ophthalmol | | | | | | ogy at [facility] [address] | | | | | | [address] [facility] | | | | | | Health and Healing, | | | | | | Building | | | | | | Floor [place], [place] | | | | | | [address] | | | | | | [phone] | | | +--------+ + + + [...] repeat exam. Leticia Pitts M.D. Ophthalmology Resident [facility] [place] [facility] documented in this encou nter Plan of Treatment Not on filedocumented as of this encounter Visit Diagnoses Not on filedocumented in this encounter"
--- OUTSIDE RECORDS SUMMARY | ~2020-07-19 | XMS | Encounter Summary ---
Demographics + + + | Address | [address] | | | [place] [address] | + + + | Home Phone [...] Team Providers + +------+ + | Care Budget Report Clerk Name | Role | Phone | + +------+ + PCP | Unavailable | + +------+ + Encounter Details +--------+ + + + + | Date | Type | Department | Care Team | Description | +--------+ + + + + | 10/10/ | Hospital | [facility] | | | | 1991 | Encounter | MED CTR WOMENS | | | | | | HEALTH SVCS [address] | | | | | | [place], | | | | | | [place] [address] | | | | | | [phone] | | | +--------+ + + + [...]
--- OUTSIDE RECORDS SUMMARY | ~2020-07-19 | XMS | Encounter Summary ---
Demographics + + + | Address | [address] | | | [place] [address] | + + + | Home Phone [...] + | Author | [facility] [employer] [facility] | + + + | Organization | [facility] [employer] [facility] [...] Team Providers + +------+ + | Care Box Strapper Name | Role | Phone | + [...] | | | | | [address] [facility] | [place], [place] | | | | | Health and Healing, | [address] | | | | | [facility] | [phone] | | | | | floor [place], [place] | | | | | | [address] | | | | | | [phone] | | | +--------+ + + + [...] lying down. She is currently driving to [facility]. She thinks she might be retaining water somewhere. I indicated that I could not evaluate her over the phone and I a lso couldn't guarantee a transfer to [facility]. She verbalized understanding. Electronically sig brad by Eladio Pang MD at 03/11/2013 8:00 AM PDTdocumented in this encounter Plan of Treatment Not on filedocumented as of this encounter Visit Diagnoses Not on filedocumented in this encounter"
--- OUTSIDE RECORDS SUMMARY | ~2020-07-19 | XMS | Encounter Summary ---
Demographics + + + | Address | [address] | | | [place] [address] | + + + | Home Phone [...] Team Providers + +------+ + | Care Spreading Machine Operator Name | Role | Phone | + +------+ + PCP | Unavailable | + +------+ + Encounter Details +--------+ + + + + | Date | Type | Department | Care Team | Description | +--------+ + + + + | 10/12/ | Hospital | [facility] | | | | 1991 | Encounter | MED CTR WOMENS | | | | | | HEALTH [facility] [address] | | | | | | [place], | | | | | | [place] [address] | | | | | | [phone] | | | +--------+ + + + [...]
--- OUTSIDE RECORDS SUMMARY | ~2020-07-19 | XMS | Encounter Summary ---
Demographics + + + | Address | [address] | | | [place] [address] | + + + | Home Phone [...] [facility] [employer] [facility] | + + + | Organization | [facility] [employer] [facility] | + + [...] Providers + +------+ + | Care Finishing Supervisor Name | Role | Phone | [...] Cerebri | | 2007 | Visit | [place] | | | | | | Photography at | | | | | | [facility] [address] | | | | | [address] | | | | | | Eye [place], 4th | | | | | | floor [place], [place] | | | | | | [address] | | | +--------+---------+ + + + [...] Pangjulisa was seen in the [facility] [place] Photography/Ultrasound Department today, 11/30/2006, for ultrasound OU [...]
--- OUTSIDE RECORDS SUMMARY | ~2020-07-19 | XMS | Encounter Summary ---
Demographics + + + | Address | [address] | | | [place] [address] | + + + | Home Phone [...] + + + | Organization | [facility] | | | [...] Providers + +------+ + | Care Telecommunications Administrator Name | Role | Phone | + +------+ + PCP | Unavailable | + +------+ + Encounter Details +--------+ + + + + | Date | Type | Department | Care Team | Description | +--------+ + + + + | 07/21/ | Hospital | [facility] | | | | 1990 | Encounter | MED CTR EMERGENCY | | | | | | CENTER [address] | | | | | | [place] | | | | | | [address] | | | | | | [phone] | | | +--------+ + + + [...]
--- OUTSIDE RECORDS SUMMARY | ~2020-07-19 | XMS | Encounter Summary ---
Demographics + + + | Address | [address] | | | [place] [address] | + + + | Home Phone [...] Author | [facility] [employer] [facility] | + + + | Organization | [facility] [employer] [facility] | + [...] Providers + +------+ + | Care Solar Pv Installer Name | Role | Phone | [...] about CAPONE) | | | | [facility] | [place], [place] | | | | | Health and Healing, | [address] | | | | | [facility] | [phone] | | | | | floor [place], [place] | | | | | | [address] | | | | | | [phone] | | | +--------+ + + + [...] She would also like a refill on [place]. Per Dr. Pedroza, pt's may only have [...]
--- OUTSIDE RECORDS SUMMARY | ~2020-07-19 | XMS | Encounter Summary ---
Demographics + + + | Address | [address] | | | [place] [address] | + + + | Home Phone [...] Team Providers + +------+ + | Care Fishing Hand Name | Role | Phone | [...] W | | | | | | [place], | | | | | | [place] [address] | | | | | | [phone] | | | +--------+ + + + [...]
--- OUTSIDE RECORDS SUMMARY | ~2020-07-19 | XMS | Encounter Summary ---
Demographics + + + | Address | [address] | | | [place] [address] | + + + | Home Phone [...] Author | [facility] [employer] [facility] | + + + | Organization | [facility] [employer] [facility] | + + + | Address | Unknown | + + + | Phone | Unavailable | + + + Support + + +---------+ + | Name | Relationship | Address | Phone | + + +---------+ + | Ruby Au | ECON | Unknown | | + + +---------+ + Care Team Providers + +------+ + | Care Assembler Musical Instruments Name | Role | Phone | + [...] 2008 | | DANIELITO Flores | ,PhD [address] | | | | | [address] Mailcode:OP14B | [address] | | | | | [facility] | [place], [place] | | | | | [place], [place] | [address] | | | | | [address] | [phone] | | | | | [phone] | | | +--------+ + + + [...] resent to the ED either locally in [place] or here at [facility] to be evaluated for her headach es. documented in th is encounter Plan of Treatment Not on filedocumented as of this encounter Visit Diagnoses Not on filedocumented in this encounter"
--- OUTSIDE RECORDS SUMMARY | ~2020-07-19 | XMS | Encounter Summary ---
Demographics + + + | Address | [address] | | | [place] [address] | + + + | Home Phone [...] Providers + +------+ + | Care Pipe And Test Supervisor Name | Role | Phone | + +------+ + PCP | Unavailable | + +------+ + Encounter Details +--------+ + + + + | Date | Type | Department | Care Team | Description | +--------+ + + + + | 10/20/ | Hospital | [facility] | | | | 1999 | Encounter | MED CTR EMERGENCY | | | | | | CENTER [address] | | | | | | [place] | | | | | | [address] | | | | | | [phone] | | | +--------+ + + + [...]
--- OUTSIDE RECORDS SUMMARY | ~2020-07-19 | XMS | Encounter Summary ---
Demographics + + + | Address | [address] | | | [place] [address] | + + + | Home Phone [...] + | Author | [facility] | + + + | Organization | [facility] [employer] [facility] | + + [...] Providers + +------+ + | Care Technical Sales Support Specialist Name | Role | Phone | [...] Care Coordination | | 2018 | | [place] | [address] | | | | | Neuro-Ophthalmology | [place], [place] | | | | | at [facility] [address] | [address] | | | | | [address] [facility] | [phone] | | | | | [place], | | | | | | [facility] | | | | | | [place], [place] | | | | | | [address] | | | | | | [phone] | | | +--------+ + + + [...] bad as it is now. Lives in [place], and says there is limite d access [...] She also lives about 40 minutes from [place]. She wo uld like to go there. [...]
--- OUTSIDE RECORDS SUMMARY | ~2020-07-19 | XMS | Encounter Summary ---
Demographics + + + | Address | [address] | | | [place] [address] | + + + | Home Phone [...] | Organization | [facility] [...] Providers + +------+ + | Care Tobacco Flavorer Name | Role | Phone | + +------+ + PCP | Unavailable | + +------+ + Encounter Details +--------+ + + + + | Date | Type | Department | Care Team | Description | +--------+ + + + + | 08/10/ | Hospital | [facility] | | | | 1990 | Encounter | MED CTR EMERGENCY | | | | | | CENTER [address] | | | | | | [place] | | | | | | [address] | | | | | | [phone] | | | +--------+ + + + [...]
--- OUTSIDE RECORDS SUMMARY | ~2020-07-19 | XMS | Encounter Summary ---
Demographics + + + | Address | [address] | | | [place] [address] | + + + | Home Phone [...] [facility] [employer] [facility] | + + + | Organization | [facility] [employer] [facility] | [...] Providers + +------+ + | Care Line Department Supervisor Name | Role | Phone [...] | | Ophthalmology | | Non-[facility] | [place], | | | | | | Epic Dept | Graciela Guardado MD | | | | | | | [address] | | | | | | | Ave | | | | | | | [place], [place] | | | | | | | [address] | | | | | | | Phone: | | | | | | | [phone] | | | | | | | Fax: | | | | | | | [phone] | +--------+--------+ + + + + Encounter Details +--------+---------+ + + + | Date | Type | Department | Care Team | Description | +--------+---------+ + + + | 03/26/ | Office | [facility] | Mo Hood | Pseudotumor cerebri | | 2012 | Visit | [place]/Ophthalmol Leif Amador MD | (Primary Dx); | | | | ogy at [facility] [address] | | Depression; Type II | | | | [address] [facility] for | | or unspecified type | | | | Health and Healing, | | diabetes mellitus | | | | Building | | without mention of | | | | Floor [place], [place] | | complication, not | | | | [address] | | stated as | | | | [phone] | | uncontrolled; PTSD | | | [...] HPI: 37 y.o. year old female from [place] : Patient presents with: IIH - Idiopathic [...] because they live 4 hours away in [facility]. Tobacco use: reports that she [...] Right Left Disc 1+ Optic disc edema, +ENVIRONMENTAL MANAGEMENT SPECIALIST 2+ Optic disc edema, RNFL whitening at the superonasal borde r of the disc. There is spontaneous pulsing of the entire disc head with heart beat. C/D Ratio 0.1 0.1 Macula Normal Normal Vessels Engorged. tortuous Engorged. tortuous Periphery Normal Normal Neuro/Psych Oriented x3: Yes Mood/Affect: Normal See [facility] Ophthalmology Exam Module for additional [...] Dr. Lux. Mo Hood MD Resident Physician [facility] [place], PGY-2 [facility] Physician: Mo Hood MD, 03/26/2013 documented [...]
--- OUTSIDE RECORDS SUMMARY | ~2020-07-19 | XMS | Encounter Summary ---
Demographics + + + | Address | [address] | | | [place] [address] | + + + | Home Phone [...] Organization | [facility] [...] Providers + +------+ + | Care Pharmacy Customer Care Specialist Name | Role | Phone | + +------+ + PCP | Unavailable | + +------+ + Encounter Details +--------+ + + + + | Date | Type | Department | Care Team | Description | +--------+ + + + + | 04/24/ | Hospital | [facility] | | | | 2005 | Encounter | MED CTR EMERGENCY | | | | | | CENTER [address] | | | | | | [place] | | | | | | [address] | | | | | | [phone] | | | +--------+ + + + [...]
--- OUTSIDE RECORDS SUMMARY | ~2020-07-19 | XMS | Encounter Summary ---
Demographics + + + | Address | [address] | | | [place] [address] | + + + | Home Phone [...] Providers + +------+ + | Care Core Assembly Supervisor Name | Role | Phone | + +------+ + PCP | Unavailable | + +------+ + Encounter Details +--------+ + + + + | Date | Type | Department | Care Team | Description | +--------+ + + + + | 08/12/ | Hospital | [facility] | Jenn [place], | | | 2012 | Encounter | HOSPITAL EMERGENCY | [address] [address] | | | | | CENTER [address] | [place] | | | | | [address] [place] | [id number] | | | | | [address] | | | | | | [phone] | | | +--------+ + + + [...]
--- OUTSIDE RECORDS SUMMARY | ~2020-07-19 | XMS | Encounter Summary ---
Demographics + + + | Address | [address] | | | [place] [address] | + + + | Home Phone [...] | [facility] [employer] [facility] | + + + | Organization | [facility] [employer] [facility] [...] Providers + +------+ + | Care Internet Webmaster Name | Role | Phone | + [...] Ave | | | | | Ave [facility] | [place], [place] | | | | | Health and Healing, | [address] | | | | | [facility] | [phone] | | | | | floor [place], [place] | | | | | | [address] | | | | | | [phone] | | | +--------+ + + + [...] refill of Xanax 1mg called in to [facility] [phone] signed by Monica sykes at 05/01/2008 2:11 PM PDTdocumented in this encounter Plan of Treatment Not on filedocumented as of this encounter Visit Diagnoses Not on filedocumented in this encounter"
--- OUTSIDE RECORDS SUMMARY | ~2020-07-19 | XMS | Encounter Summary ---
Demographics + + + | Address | [address] | | | [place] [address] | + + + | Home Phone [...] Author | [facility] | + + + | Organization | [facility] [employer] [facility] [...] Providers + +------+ + | Care Rn New Grad Name | Role | Phone | + [...] | | | REFERRAL TO | | [place], [place] | | | | | NEUROINTERVE | | [address] | | | | | NTIONAL | | Phone: | | | | | RADIOLOGY | | [phone] | | | | | PRACTICE | | Fax: | | | | | | | [phone] | +--------+--------+ + + + + Reason [...] Dx) | | | | Mailcode:OP14B | [place], [place] | | | | | Outpatient Clinic | [address] | | | | | Building [place], | [phone] | | | | | [place] [address] | | | | | | [phone] | | | +--------+---------+ + + + [...] resident s note. CASIMIRO PAYTON MD NEUROSURGERY [address] [place] [address] [place] [address] hPascual hanley Bri - 12:00 PM PDT [...] spots" and "tunnel vision." Last saw an change control manager in [facility] 2 months ago. Reportedl y, this showed [...] Patient was also given a prescription for [place] for CAPONE until she establishs care with [...]
--- OUTSIDE RECORDS SUMMARY | ~2020-07-19 | XMS | Encounter Summary ---
Demographics + + + | Address | [address] | | | [place] [address] | + + + | Home Phone [...] + | Organization | [facility] | [...] Team Providers + +------+ + | Care Archival Studies Professor Name | Role | Phone | + +------+ + PCP | Unavailable | + +------+ + Encounter Details +--------+ + + + + | Date | Type | Department | Care Team | Description | +--------+ + + + + | 04/20/ | Hospital | [facility] | | | | 1995 | Encounter | MED CTR EMERGENCY | | | | | | CENTER [address] | | | | | | [place] | | | | | | [address] | | | | | | [phone] | | | +--------+ + + + [...]
--- OUTSIDE RECORDS SUMMARY | ~2020-07-19 | XMS | Encounter Summary ---
Demographics + + + | Address | [address] | | | [place] [address] | + + + | Home Phone [...] Team Providers + +------+ + | Care Mill Attendant Name | Role | Phone | + +------+ + PCP | Unavailable | + +------+ + Encounter Details +--------+ + + + + | Date | Type | Department | Care Team | Description | +--------+ + + + + | 09/07/ | Hospital | [facility] | | | | 1991 | Encounter | MED CTR EMERGENCY | | | | | | CENTER [address] | | | | | | [place] | | | | | | [address] | | | | | | [phone] | | | +--------+ + + + [...]
--- OUTSIDE RECORDS SUMMARY | ~2020-07-19 | XMS | Encounter Summary ---
Demographics + + + | Address | [address] | | | [place] [address] | + + + | Home Phone [...] + | Author | [facility] [employer] [facility] | + + + | Organization | [facility] [employer] [facility] | + + [...] Providers + +------+ + | Care Gluer Name | Role | Phone | + [...] Erroneous Encounter | | 2007 | | [place] [facility] | [facility] | - Disregard | | | | and Healing [address] | Neurosurgery [address] | | | | | [address] [facility] | [address] | | | | | Health and Healing, | [place], [place] | | | | | [facility] | [address] | | | | | Floor [place], [place] | | | | | | [address] | | | | | | [phone] | | | +--------+ + + + [...]
--- OUTSIDE RECORDS SUMMARY | ~2020-07-19 | XMS | Encounter Summary ---
Demographics + + + | Address | [address] | | | [place] [address] | + + + | Home Phone [...] + | Author | [facility] | + + + | Organization | [facility] [employer] [facility] | + + + | Address | Unknown | + + + | Phone | Unavailable | + + + Support + + +---------+ + | Name | Relationship | Address | Phone | + + +---------+ + | Ruby Au | ECON | Unknown | | + + +---------+ + Care Team Providers + +------+ + | Care Capsule Filler Name | Role | Phone | [...] | | | Ave [facility] for | [place], [place] | | | | | Health and Healing, | [address] | | | | | Building , | [phone] | | | | | floor [place], [place] | | | | | | [address] | | | | | | [phone] | | | +--------+ + + + [...] Telephone Encounter - Lucina Chavez PA - 08/23/2011 11:21 AM PDTAgree that Annabella stiles present to ED for full evaluation.Electronically signed by FLORA Solano at 07/30 11:30 AM PDTTelephone Encounter - Avis Gonzalez LPN - 08/23/2011 10:55 AM PDTPati ent reports that a recent xray shows her shunt is not longer functioning and is out of place . She reports increase headaches, nausea/vomiting, and intermittent fevers, she has block/b lack spots in her vision and states that at times she is confused. Per Dr. North notes, Annabella has been to 2 ED facilities already. I encouraged her to return to [place] to be seen in our ED by the neurosurgeons telephone sales agent. I explained that this was a n occasion that we are unable to treat on the phone. She will call for transportation and if this is not resolved will look into [facility] Tuesday. do cumented in this encounter Plan of Treatment Not on filedocumented as of this encounter Visit Diagnoses Not on filedocumented in this encounter"
--- OUTSIDE RECORDS SUMMARY | ~2020-07-19 | XMS | Encounter Summary ---
Demographics + + + | Address | [address] | | | [place] [address] | + + + | Home Phone [...] + + | Author | [facility] [facility] | + + + | Organization | [facility] [employer] [facility] [...] Team Providers + +------+ + | Care Caustic Preparer Name | Role | Phone | + [...] | | | Ave [facility] for | [place], [place] | | | | | Health and Healing, | [address] | | | | | Building | [phone] | | | | | floor [place], [place] | | | | | | [address] | | | | | | [phone] | | | +--------+ + + + [...]
--- OUTSIDE RECORDS SUMMARY | ~2020-07-19 | XMS | Encounter Summary ---
Demographics + + + | Address | [address] | | | [place] [address] | + + + | Home Phone [...] | Organization | [facility] [...] Team Providers + +------+ + | Care Survey Interviewer Name | Role | Phone | + +------+ + PCP | Unavailable | + +------+ + Encounter Details +--------+ + + + + | Date | Type | Department | Care Team | Description | +--------+ + + + + | 05/31/ | Hospital | [facility] | | | | 1991 | Encounter | MED CTR [facility] | | | | | | HEALTH [facility] [address] | | | | | | [place], | | | | | | [place] [address] | | | | | | [phone] | | | +--------+ + + + [...]
--- OUTSIDE RECORDS SUMMARY | ~2020-07-19 | XMS | Encounter Summary ---
Demographics + + + | Address | [address] | | | [place] [address] | + + + | Home Phone [...] + + + | Author | [facility] | + + + | Organization | [facility] [employer] [facility] | + + + | Address | Unknown | + + + | Phone | Unavailable | + + + Support + + +---------+ + | Name | Relationship | Address | Phone | + + +---------+ + | uRby Au | ECON | Unknown | | + + +---------+ + Care Team Providers + +------+ + | Care Accounting Lecturer Name | Role | Phone | [...] [address] | | | | | | [address] | Ave | | | | | | [address] | [place], [place] | | | | | | [place], | [address] | | | | | | [place] [address] | Phone: | | | | | | Phone: | [phone] | | | | | | [phone] | Fax: | | | | | | Fax: | [phone] | | | | | | [phone] | | +--------+ + + + + [...] | | | Ave [facility] for | [place], [place] | | | | | Health and Healing, | [address] | | | | | | [phone] | | | | | floor [place], [place] | | | | | | [address] | | | | | | [phone] | | | +--------+---------+ + + + [...] soon. I spent more than 15 minutes [id number] with the patient of which greater than 50% was sp ent counseling the patient regarding the shunt removal, indications and venous sinus stent a ngioplasty. Since her shunt is brent effective now she will need narcotics for headache and he r PCP should manage that. CASIMIRO PAYTON MD NEUROSURGERY [address] Mailcode: Ch8n [facility], 8th Floor [facility] [address] documented in this encou nter Miscellaneous Notes [...]
--- OUTSIDE RECORDS SUMMARY | ~2020-07-19 | XMS | Encounter Summary ---
Demographics + + + | Address | [address] | | | [place] [address] | + + + | Home Phone [...] Team Providers + +------+ + | Care Chair Frame Builder Name | Role | Phone | + +------+ + PCP | Unavailable | + +------+ + Encounter Details +--------+ + + + + | Date | Type | Department | Care Team | Description | +--------+ + + + + | 03/14/ | Hospital | [facility] | Pancho Gonzalez | | | 2012 | Encounter | HOSPITAL EMERGENCY | [place] [address] [facility] | | | | | CENTER [address] | [facility] [address] | | | | | [address] [place] | [place], [place] | | | | | [address] | [id number] | | | | | [phone] | | | +--------+ + + + [...]
--- OUTSIDE RECORDS SUMMARY | ~2020-07-19 | XMS | Encounter Summary ---
Demographics + + + | Address | [address] | | | [place] [address] | + + + | Home Phone [...] Team Providers + +------+ + | Care Hrbp Name | Role | Phone | + +------+ + PCP | Unavailable | + +------+ + Encounter Details +--------+ + + + + | Date | Type | Department | Care Team | Description | +--------+ + + + + | 03/29/ | Hospital | [facility] | | | | 2006 | Encounter | MED CTR XRAY [address] | | | | | [address] [place] | | | | | | [place] [address] | | | | | | [phone] | | | +--------+ + + + [...]
--- OUTSIDE RECORDS SUMMARY | ~2020-07-19 | XMS | Encounter Summary ---
Demographics + + + | Address | [address] | | | [place] [address] | + + + | Home Phone [...] | Author | [facility] [employer] [facility] | + + + | Organization | [facility] [employer] [facility] [...] Team Providers + +------+ + | Care Provider Service Representative Name | Role | Phone [...] Cerebri | | 2006 | Visit | [facility] at | Bud Alexandre MD [address] | (Primary Dx) | | | | [facility] [place] [address] | Cassi Hammer | | | | | [address] | [place], [place] | | | | | Eye [place], [facility] | [address] | | | | | [place], [place] | [phone] | | | | | [address] | [...]
--- OUTSIDE RECORDS SUMMARY | ~2020-07-19 | XMS | Encounter Summary ---
Demographics + + + | Address | [address] | | | [place] [address] | [...] Author | [facility] [employer] [facility] | + + + | Organization | [facility] [employer] [facility] | + + + | Address | Unknown | + + + | Phone | Unavailable | + + + Support + + +---------+ + | Name | Relationship | Address | Phone | + + +---------+ + | Ruby Au | ECON | Unknown | | + + +---------+ + Care Team Providers + +------+ + | Care Presidential Support Specialist Name | Role | Phone [...] Ave | | | | | Ave [facility] | [place], [place] | | | | | Health and Healing, | [address] | | | | | Building [address], [address]th | [phone] | | | | | floor [place], [place] | | | | | | [address] | | | | | | [phone] | | | +--------+ + + + [...] 02/20/2013 1:43 PM PDTPatient seen in her [facility] for helicobacter gastritis, abdominal pain and [facility] ED on ATBX regimen. No neurosurgical needs [...] sushant. She opted medical therapy through her placement secretary: increase in diamox dose; and l et [...] spots." Advised pt to go to the [facility] ED, pt states she is in [place], [place] and will go to her [facility] ED. Paged FLORA Paul and discussed documentation above. documented in this encounter Plan of Treatment Not on filedocumented as of this encounter Visit Diagnoses Not on filedocumented in this encounter
--- OUTSIDE RECORDS SUMMARY | ~2020-07-19 | XMS | Encounter Summary ---
Demographics + + + | Address | [address] | | | [place] [address] | + + + | Home Phone [...] Team Providers + +------+ + | Care Laster Hand Name | Role | Phone | + +------+ + PCP | Unavailable | + +------+ + Encounter Details +--------+ + + + + | Date | Type | Department | Care Team | Description | +--------+ + + + + | 05/28/ | Hospital | [facility] | | | | 1991 | Encounter | MED CTR EMERGENCY | | | | | | CENTER [address] | | | | | | [place] | | | | | | [address] | | | | | | [phone] | | | +--------+ + + + [...]
--- OUTSIDE RECORDS SUMMARY | ~2020-07-19 | XMS | Encounter Summary ---
Demographics + + + | Address | [address] | | | [place] [address] | + + + | Home Phone [...] + | Author | [facility] [employer] [facility] | + + + | Organization | [facility] [employer] [facility] | + [...] Team Providers + +------+ + | Care Storehouse Clerk Name | Role | Phone | [...] | Headache | | 2015 | | [place] | MD [address] | | | | | Neuro-Ophthalmology | [facility] [place] | | | | | at [facility] [address] | [address] | | | | | Ave [facility] | [phone] | | | | | [facility] and Healing, | | | | | | [facility] | | | | | | Floor [place], [place] | | | | | | [address] | | | | | | [phone] | | | +--------+ + + + [...] to do. She agreed. She lives in [place] and wi ll head to ER close [...]
--- OUTSIDE RECORDS SUMMARY | ~2020-07-19 | XMS | Encounter Summary ---
Demographics + + + | Address | [address] | | | [place] [address] | + + + | Home Phone | | + + + | Preferred Language | Unknown | + + + | Marital Status | | + + + | Orthodoxy Affiliation | NON | + + + | Race | or | + + + | Ethnic Group | Not or | + + + Author + + + | Author | [facility] [employer] [facility] | + + + | Organization | [facility] [employer] [facility] | + + [...] Providers + +------+ + | Care Aeronautical Test Engineer Name | Role | Phone | [...] Cerebri | | 2006 | Visit | [place] | Cassi Hammer | (Primary Dx) | | | | Oculoplastics at | [place], [place] | | | | | [address] | [address] | | | | | [address] | [phone] | | | | | Eye [place] | | | | | | [address] | | | | | | [place] [address] | | | | | | [phone] | | | +--------+---------+ + + + [...]
--- OUTSIDE RECORDS SUMMARY | ~2020-07-19 | XMS | Encounter Summary ---
Demographics + + + | Address | [address] | | | [place] [address] | + + + | Home Phone [...] Providers + +------+ + | Care Emergency Services Professional Name | Role | Phone | + +------+ + PCP | Unavailable | + +------+ + Encounter Details +--------+ + + + + | Date | Type | Department | Care Team | Description | +--------+ + + + + | 07/19/ | Hospital | [facility] | Vern Rooney, | | | 1990 - | Encounter | MED CTR MED ONC | MD [address] | | | | | [address] | [place] | | | 07/21/ | | [place] [address] | [address] | | | 1990 | | [phone] | | | +--------+ + + + [...]
--- OUTSIDE RECORDS SUMMARY | ~2020-07-19 | XMS | Encounter Summary ---
Demographics + + + | Address | [address] | | | [place] [address] | + + + | Home Phone [...] Team Providers + +------+ + | Care Fiber Optic Central Office Installer Name | Role | Phone | [...] | | | CENTER [address] | [facility] | | | | | [address] [place] [place] | [place] [address] | | | | | [address] | [phone] | | | | | [phone] | | | +--------+ + + + [...]
--- OUTSIDE RECORDS SUMMARY | ~2020-07-19 | XMS | Encounter Summary ---
Demographics + + + | Address | [address] | | | [place] [address] | + + + | Home Phone [...] | Author | [facility] | + + + | Organization | [facility] [employer] [facility] | [...] Team Providers + +------+ + | Care Back Up Scan Coordinator Name | Role | Phone | [...] | | | | | [address] for | [address] | | | | | Health and Healing, | [place], [place] | | | | | Building | [address] | | | | | Floor [place], [place] | | | | | | [address] | | | | | | [phone] | | | +--------+ + + + [...]
--- OUTSIDE RECORDS SUMMARY | ~2020-07-19 | XMS | Encounter Summary ---
Demographics + + + | Address | [address] | | | [place] [address] | + + + | Home Phone [...] | Author | [facility] [employer] [facility] | + + + | Organization | [facility] [employer] [facility] | + [...] Team Providers + +------+ + | Care Photogrammetric Tech Name | Role | Phone | [...] Cerebri | | 2006 | Visit | [place] | Cassi Hammer | (Primary Dx) | | | | Oculoplastics at | [place], [place] | | | | | [address] | [address] | | | | | [address] | [phone] | | | | | Eye [place] | | | | | | [address] | | | | | | [place] [address] | | | | | | [phone] | | | +--------+---------+ + + + [...]
--- OUTSIDE RECORDS SUMMARY | ~2020-07-19 | XMS | Encounter Summary ---
Demographics + + + | Address | [address] | | | [place] [address] | + + + | Home Phone | | + + + | Preferred Language | Unknown | + + + | Marital Status | | + + + | Presybeterian Affiliation | NON | + + + | Race | or | + + + | Ethnic Group | Not or | + + + Author + + + | Author | [facility] [employer] [facility] | + + + | Organization | [facility] In[facility] [employer] [facility] | + [...] Team Providers + +------+ + | Care Pneumatic Press Hand Name | Role | Phone | [...] | | | Ave Center for | [place], [place] | | | | | Health and Healing, | [address] | | | | | [facility] | [phone] | | | | | floor [place], [place] | | | | | | [address] | | | | | | [phone] | | | +--------+ + + + [...] for evaluation. She can be reached at [facility] at [phone]. docum ented in this encounter Plan of Treatment Not on filedocumented as of this encounter Visit Diagnoses Not on filedocumented in this encounter"
--- OUTSIDE RECORDS SUMMARY | ~2020-07-19 | XMS | Encounter Summary ---
Demographics + + + | Address | [address] | | | [place] [address] | + + + | Home Phone [...] Team Providers + +------+ + | Care Mobile Home Set Up Person Name | Role | Phone | + +------+ + PCP | Unavailable | + +------+ + Encounter Details +--------+ + + + + | Date | Type | Department | Care Team | Description | +--------+ + + + + | 09/27/ | Hospital | [facility] | | | | 1991 | Encounter | [facility] | | | | | | [facility] [address] | | | | | | [place], | | | | | | [place] [address] | | | | | | [phone] | | | +--------+ + + + [...]
--- OUTSIDE RECORDS SUMMARY | ~2020-07-19 | XMS | Encounter Summary ---
Demographics + + + | Address | [address] | | | [place] [address] | + + + | Home Phone | | + + + | Preferred Language | Unknown | + + + | Marital Status | | + + + | Islam Affiliation | NON | + + + | Race | or | + + + | Ethnic Group | Not or | + + + Author + + + | Author | [facility] [employer] [facility] | + + + | Organization | [facility] [employer] [facility] | + [...] Providers + +------+ + | Care Community Service Worker Name | Role | Phone | [...] | | | | | [facility] [place] for | [address] | | | | | Health and Healing, | [facility] [place] | | | | | | [address] | | | | | Floor [place], [place] | | | | | | [address] | | | | | | [phone] | | | +--------+--------+ + + + [...]
--- OUTSIDE RECORDS SUMMARY | ~2020-07-19 | XMS | Encounter Summary ---
Demographics + + + | Address | [address] | | | [place] [address] | + + + | Home Phone [...] [facility] [employer] [facility] | + + + | Organization | [facility] [employer] [facility] [...] Team Providers + +------+ + | Care Computing Tutor Name | Role | Phone | [...] Cerebri | | 2006 | Visit | [place] | | (Primary Dx) | | | | Neuro-Ophthalmology | | | | | | [address] [facility] | | | | | | Mailcode: PATTI | | | | | | [place] [address] | | | | | | [phone] | | | +--------+---------+ + + + [...] Referred by: CASIMIRO PAYTON MD [address] [place] [address] Per [facility] chart note taken this morning by . Symptoms: Patient specific problem noted by patient: transient visual loss HPI: 31 y.o. year old female from [place] : Patient presents with: Transient visual loss [...] Pulmonary: negative GI: Problems due to long term care administrator use of tylenol/ibuprofen. : negative Musculoskeletal: negative [...] Brad Currie MD Neuro-Ophthalmology and Cerebrovascular Disease Fertilizing Machine Operator of Ophthalmology, Neurology, and Neurosurgery [...]
--- OUTSIDE RECORDS SUMMARY | ~2020-07-19 | XMS | Encounter Summary ---
Demographics + + + | Address | [address] | | | [place] [address] | + + + | Home Phone [...] Organization | [facility] [...] Providers + +------+ + | Care Claim Adjuster Name | Role | Phone | + +------+ + PCP | Unavailable | + +------+ + Encounter Details +--------+ + + + + | Date | Type | Department | Care Team | Description | +--------+ + + + + | 05/26/ | Hospital | [facility] | Alexa Bower DO | Infection of lumbar | | 2017 - | Encounter | CENTER SURG[facility] [address] | [address] | spine ([facility]); Type 2 | | | [address] | [place] [address] | diabetes mellitus | | 05/27/ | | [place], [place] | [phone] | without | | 2017 | | [address] | | complication, | | | | [phone] | | unspecified long | | | | | | term insulin use | | | | | | status ([facility]); | | | | | | History of drug | | | | | | abuse ([facility]); BMI | | | | | | 40.0-44.9, adult | | | | | | ([facility]); Back pain, | | | | | [...] 1542 Date of Service: 05/27/171842 Status: Signed Integration Engineer: Reynold Garcia MD (Physician) I was informed by nursing that pt decided to leave [facility] on 05/27/2017. This has been document ed [...] 05/27/171849 Date of Service: 05/27/171842 Status: Signed Integration Engineer: Mesha Brown RN (Registered Nurse) Pt anxious, [...] Date of Service: 05/27/17 1303 Status: Signed Integration Engineer: Mesha Brown RN (Registered Nurse) Went to [...] Date of Service: 05/27/17 1045 Status: Signed Integration Engineer: Da Goode RN (Registered Nurse) 05/27/17 1042 [...] Oriented Prior functional status independant Power of Campus Ambassador No Anticipated Discharge Plan Post Acute Care Needs None at this time Resources Financial concerns No Transportation issues No ( will transport) Patient/Family concerns No Prescription Plan Yes Name of Pharmacy [facility] [place] [facility] phone number [phone] Previous home health equipment No Vascular access device No Ostomy/Drains/Appliances No Anticipated Disposition Facility Type Home Met with patient at bedside. Annabella is a 41 year old female with a history of anxiety/depre sssion, HTN, COPD, DM type 2, and IV drug use. She lives in [place] with her daughter 2 6, and 14 year old twins. Her is currently getting a new house ready for them to mov e into and is active in their lives. Annabella went to [facility] for pelvic pain and spotting but left AMA while waiting for MR I results because she couldn't smoke. The hospital called her and recommended her to go to [facility] based on the MRI results. Patient is independent in all ADL's. Because of the IV drug use, sending her home with an I V line is not recommended is she needs outpatient IV abx. 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; [employer] Coverage concerns:no Medication coverage/concerns: no Community resources utilized / needed: TBD Assistance in transportation: not at this time Identification of any specific education / training: TBD Barriers to Discharge / Alternative housing needed: not at this time Anticipated DCP: Home DA GOODE RN Case Management [phone] Andre Lay MD - 05/27/2017 9:46 AM PDT Progress Notes by Andre Alonso MD-R1 at 05/27/17945 Author: Andre Alonso MD-R1 Service: Hospitalist Author Type: Resident-Y1 Filed: 05/27/171900 Date of Service: 05/27/17945 Status: Attested Integration Engineer: Andre Alonso MD-R1 (Resident-Y1) Cosigner: Reynold Garcia [...] hospitalization due to abuse p otential and mcc side effects. I anticipate that pt may not be happy during this hospi yuridia stay for this reason. I recommend risk management to see pt proactively. 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 [facility] Service: Hospitalist Progress Note Hospital Day: LOS: 0 days Post-Op Day: * No surgery found * SUBJECTIVE Patient Summary: the patient is a 41-year-old female with significant past medical h istory of type II diabetes, hypertension, gastroesophageal reflux disease, depression, IV dr ug abuse who is a transfer from [facility] for further evaluation. Events Overnight: The [...] IV drug abuse who was transferred from [facility] in [place], [place] for further evaluation of suspicious lumbar [...] past 2-3 weeks. IUD was placed approximat jesup 3 years ago. We are recommending that [...] 05/27/1736 Date of Service: 05/27/17633 Status: Signed Integration Engineer: Cathy Garcia RN (Registered Nurse) Contacted [facility]. Will fax over current microbiology GC test along with most current wound culture results. onver ludwin Transaction, Provider Unknown - 05/27/2017 5:15 AM PDT Progress Notes by Remy Trinidad RPH at 05/27/17 0515 Author: Remy Trinidad RPH Service: Pharmacy Author Type: Pharmacist Filed: 05/27/17514 Date of Service: 05/27/17514 Status: Signed Integration Engineer: Remy Trinidad RPH (Pharmacist) Note ccl 125.9ml/min meds reviewed Pharmacy will follow c 0515 docume nted in this encounter H&P Notes Tom Rae MD - 05/27/2017 2:41 AM PDT H&P by BERTRAM Boyer at 05/27/17240 Author: BERTRAM Boyer Service: Hospitalist Author Type: Resident-Y1 Filed: 05/27/17621 Date of Service: 05/27/17240 Status: Attested Addendum Integration Engineer: BERTRAM Boyer (Resident-Y1) Related Notes: Original Note by BERTRAM Boyer (Resident-Y1) filed at 05/27/17513 Cosigner: Alexa Bower DO at 06/21/17621 Attestation signed by Alexa Bower DO at 06/21/17621 (Updated) Chief complaint: Back Pain "I had an MRI and they told me there's fluid on my spine" Abdominal Pain Vaginal Bleeding Referral "the infectious disease doctor from [place] told me to come here to be admitted" Reason for admission: Possible paraspinal abscess Patient seen and evaluated independently. Patient denies saddle anesthesia. No suprapubic d istention or tenderness noted. Agree with above assessment, will recommend closely monitoring this patient for respiratory distress and use of narcotics for pain. [facility] Service: Hospitalist Admission History & Physical Date [...] in her spine. She was seen at [facility] in [place] yesterday where she was being evaluated for [...] P ain improved with medications. Workup at [facility] revealed elevated CRP of 7.7, CBC [...] of the right facet joint of L4-L5. [facility]'s ED physician spoke with Dr. Triston alcantara (ID) who recommended radiology guided sampling of fluid by IR as well as blood cultures . He called patient to advise her to come to [facility] for further evaluation. Patient uses IV he roin, last use was yesterday due to the pain. She states she is unsure if the needles she us es are clean. In the [facility] ED, patient found to be afebrile [...] back pain MRI lumbar spine performed at [facility] in [place] showed a subcentimeter rim-enhanci ng collection adjacent [...] drug abuse Currently using IV heroin. Consulted human services case manager for assistance with drug rehabilitation. [...] follow up urinalysis - G/C Aptima from [facility] pending, hospitalist to request results [...] 06/06/17921 Date of Service: 05/27/17617 Status: Addendum Integration Engineer: Kate Rangel MD (Physician) Related Notes: Original Note by Kate Rangel MD (Physician) filed at 06/06/[address] [facility] Service: Infectious Disease Initial Consult Note Date of Admission: 05/26/2017 Reason for Consultation: Concern for spine infection in a patient with history of IV drug use Requesting Physician: Dr. Alexa Bower, Hospitalist History Obtained From: patient, chart review CHIEF COMPLAINT: Back pain; prior evaluation at [facility] in [place] with MRI concer ns for spine infection HISTORY OF PRESENT ILLNESS The patient is a 41 y.o. 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 She denies history of HIV [...] On 05/25, the patient was seen at [facility] in [place] for low back pain which she linda cribed as severe and pelvic pain. She has been having vaginal spotting; she has an IUD and described having normal period the prior month. The vaginal spotting reportedly has stopped but she is interested in seeing a MARBLE POLISHER. The low back pain is persistent, described [...] had been (informally) reviewed by Neurosurgery and [facility] Radiology does not think there is [...] normal menstruation in the past month. Suggest OB-MARBLE POLISHER refe rral as an outpatient. Case had been discussed with ER physician at [facility] and with Dr. Garcia, her hospitalis [...] 05/27/17313 Date of Service: 05/27/17313 Status: Signed Integration Engineer: Kenya Zavala RN (Registered Nurse) Dr Bower at pt BS Kenya Zavala RN 05/27/17313 Ed Nation MD - 05/27/2017 12:26 AM PDT ED Provider Notes by Ed Toney DO at 05/27/17 0026 Author: Ed Toney DO Service: Emergency Department Author Type: Physician Filed: 05/27/17 0443 Date of Service: 05/27/17 0026 Status: Signed Integration Engineer: Ed Toney DO (Physician) [facility] Department of Emergency Medicine 12:26 AM 05/26/2017 [...] Bleeding Referral "the infectious disease doctor from [place] told me to come here to be [...] vaginal bleeding. Patient was seen in the [place] ED 3 days ago for vagina l bleeding, where she was found to have a "pocket of fluid in my spine." Patient became upse t, then left the facility AMA. She was then called today with her results, and advised to co me to [facility] ED for further evaluation/admission. The patient [...] and was advised to come to the [facility] ED for admission and treatment of possible abscess of spine. Dr. Rangel is aware of patient's case and is requesting three sets of blood cul tures and admission. Will order labs, and reevaluate. Will also obtain MRI report. 2:25 AM Reviewed patient's records which were sent from [facility] in [place]. 2:34 AM Discussed patient's case with Dr. [...] reviewed (Using the electronic record system of [facility], I car efully reviewed the records with regard to the past medical/surgical history, previous medic ations, and allergies). Nursing notes reviewed for chief complaint, medications, clinical presentation and vital si gns Laboratory Evaluation Results Procedure Component Value Ref Range Date/Time Drugs of Abuse Screen, UR Hospital and ED Only [[id number]] Order Status: Sent Specimen Information: Urine, Clean Catch Cardiac Panel [[id number]] (Abnormal) Collected: 05/27/17315 Order Status: Completed Updated: [...] Index UNABLE TO CALCULATE Sedimentation Rate (ESR) [[id number]] (Abnormal) Collected: 06/30/17 0316 Order Status: Completed Specimen Information: Blood Updated: 05/27/17357 ESR 23 (H) 0 - 20 mm/Hr Lactic acid [[id number]] Collected: 05/27/17316 Order Status: Completed Specimen Information: Blood Updated: 05/27/17348 LACTIC ACID 0.4 0.4 - 2.0 mmol/L C-Reactive Protein [[id number]] (Abnormal) Collected: 05/27/17315 Order Status: Completed Specimen Information: Blood Updated: 05/27/17347 CRP 1.7 (H) <0.5 mg/dL Blood culture, set 2 [[id number]] Collected: 05/27/17317 Order Status: Sent Specimen Information: Blood from Blood Updated: 05/27/17322 Blood Culture Set 1 [[id number]] Collected: 05/27/17314 Order Status: Sent Specimen Information: Blood from Blood Updated: 05/27/17320 Urinalysis (reflex to microscopic/reflex to culture) [[id number]] (Abnormal) Collected: 05/27/17199 Order Status: Completed Specimen Information: Urine, Clean Catch Updated: 05/27/17 02 23 COLOR UA RED CLARITY CLEAR Specific [place], UA 1.005 1.002 - 1.030 LEUKOCYTE ESTERASE [...] Type 2 diabetes mellitus without complication, unspecified mcc insulin use status (H CC) History of [...] recognition system. The possibility of "sound alike" middle school professional errors, addition and/or deletions may occur. If [...] Date of Service: 05/27/17 0004 Status: Signed Integration Engineer: Kenya Zavala RN (Registered Nurse) "3 Days [...] 05/27/17805 Date of Service: 05/27/17805 Status: Signed Integration Engineer: Mesha Brown RN (Registered Nurse) Problem: Pain [...] NEGATIVE Testing | | | performed at [facility];[address] [place] [address];[place] [address] | | + + + + +---------+ [...] | | | Fingerstick | performed at [facility];[address] | | LAB | | | | [address];[place] | | | | | | [address] | | | | + + + [...] | | | Fingerstick | performed at [facility];[address] | | LAB | | | | [address];[place] | | | | | | [address] | | | | + + + [...] - 1.030 | EXTERNAL | | | [place], | | | LAB | | | [...] | | l squamous | performed at [facility], [address] | | LAB | | | epithelia, | [address], | | | | | UA | [place] [address] | | | | + + + [...] | | | Patient | performed at [facility];[address] | | LAB | | | | [address];[place], [place] | | | | | | [address] | | | | + + + [...] | | | | | performed at [facility] | | | | | | [address];[place], [place] | | | | | | [address] | | | | + + + [...] | | | Basophils | performed at [facility], [address] | K/uL | LAB | | | | [address], | | | | | | [place] [address] | | | | + + + [...] EXTERNAL | | | | performed at [facility], [address] | | LAB | | | | [address], | | | | | | [place] [address] | | | | + + + [...] EXTERNAL | | | | performed at [facility], [address] | | LAB | | | | [address], | | | | | | [place] [address] | | | | + + + [...] + + | Hemoglobin | 5.7Comment: The Dutch | 4.0 - 6.0 % | EXTERNAL [...] | | | | | performed at [facility], [address] | | | | | | Teresa [address], | | | | | | [place] [address] | | | | + + + [...] | | | | | | at [facility], [address] | | | | | | [address], | | | | | | [place] [address] | | | | + + + [...] | | | Fingerstick | performed at [facility];[address] | | LAB | | | | [address];[place], [place] | | | | | | [address] | | | | + + + [...] | | | | | performed at [facility];[address] | | | | | | [facility];[place], [place] | | | | | | [address] | | | | + + + [...] EXTERNAL | | | | performed at [facility];[address] | mmol/L | LAB | | | | [address];[place] | | | | | | [address] | | | | + + + [...] at | | | | | | [facility];[address] [place] [address] | | | | | | Blvd;[place] [address] | | | | + + + [...] EXTERNAL | | | | performed at [facility] | | LAB | | | | [address];[place], [place] | | | | | | [address] | | | | + + + [...] EXTERNAL | | | | performed at [facility];[address] | | LAB | | | | [address];[place], [place] | | | | | | [address] | | | | + + + [...] | | | QUALITATIVE | performed at [facility] | | LAB | | | | Nereyda [facility];[place], [place] | | | | | | [address] | | | | + + + [...] - 1.030 | EXTERNAL | | | [place], | | | LAB | | | [...] | | | Cells | performed at [facility];[address] | | LAB | | | | [address];[place], [place] | | | | | | [address] | | | | + + + [...] Type 2 diabetes mellitus without complication, unspecified contracting specialist insulin use | | status | + [...]
--- OUTSIDE RECORDS SUMMARY | ~2020-07-19 | XMS | Encounter Summary ---
Demographics + + + | Address | [address] | | | [place] [address] | + + + | Home Phone [...] Team Providers + +------+ + | Care Online Editor Name | Role | Phone | + +------+ + PCP | Unavailable | + +------+ + Encounter Details +--------+ + + + + | Date | Type | Department | Care Team | Description | +--------+ + + + + | 10/22/ | Hospital | [facility] | | | | 1991 - | Encounter | [facility] | | | | | | [facility] [address] | | | | 11/27/ | | [place], | | | | 1991 | | [place] [address] | | | | | | [phone] | | | +--------+ + + + [...]
--- OUTSIDE RECORDS SUMMARY | ~2020-07-19 | XMS | Encounter Summary ---
Demographics + + + | Address | [address] | | | [place] [address] | + + + | Home Phone [...] | Organization | [facility] [...] Providers + +------+ + | Care Supervisor Computer Operations Name | Role | Phone | + +------+ + PCP | Unavailable | + +------+ + Encounter Details +--------+ + + + + | Date | Type | Department | Care Team | Description | +--------+ + + + + | 10/29/ | Hospital | [facility] | | | | 1991 | Encounter | [facility] | | | | | | CENTER [address] | | | | | | [place] | | | | | | [address] | | | | | | [phone] | | | +--------+ + + + [...]
--- OUTSIDE RECORDS SUMMARY | ~2020-07-19 | XMS | Encounter Summary ---
Demographics + + + | Address | [address] | | | [place] [address] | + + + | Home Phone [...] Author | [facility] [employer] [facility] | + + + | Organization | [facility] [employer] [facility] | [...] Providers + +------+ + | Care Operations Administrator Name | Role | Phone | + +------+ + | Pedro Luis Sams MD | PCP | | + +------+ + Encounter Details +--------+ + + + + | Date | Type | Department | Care Team | Description | +--------+ + + + + | 10/19/ | Telephone | [facility] | Funmilayo Osorio MD | | | 2010 | | [place]/Ophthalmol | [address] | | | | | leon at [facility] [address] | [place], [place] | | | | | [address] [facility] | [address] | | | | | Health and Healing, | [phone] | | | | | | | | | | | Floor [place], [place] | | | | | | [address] | | | | | | [phone] | | | +--------+ + + + [...] patient is currently unable to travel to [place] since she is caring for her mother who is ill. The patient has an appt scheduled with an dog license officer supervisor in her local area next week. I [...] her to see the financial counselor at [facility]. In the mean time the patient agreed to let me know about any changes in her vision or worse nereida headaches. She was told to go to the ER if necessary. Funmilayo Osorio MD Hospital Nursing Assistant [facility] [place] documented in this encou nter Plan of Treatment Not on filedocumented as of this encounter Visit Diagnoses Not on filedocumented in this encounter"
--- OUTSIDE RECORDS SUMMARY | ~2020-07-19 | XMS | Encounter Summary ---
Demographics + + + | Address | [address] | | | [place] [address] | + + + | Home Phone [...] Author | [facility] [employer] [facility] | + + + | Organization | [facility] [employer] [facility] [...] Team Providers + +------+ + | Care Turbogenerator Operator Name | Role | Phone | [...] Telephone follow-up | | 2015 | | Elizabeth | [address] | | | | | Neuro-Ophthalmology | [place], [place] | | | | | at [facility] [address] | [address] | | | | | Ave [facility] | [phone] | | | | | [place], | | | | | | | | | | | | [place], [place] | | | | | | [address] | | | | | | [phone] | | | +--------+ + + + [...]
--- OUTSIDE RECORDS SUMMARY | ~2020-07-19 | XMS | Encounter Summary ---
Demographics + + + | Address | [address] | | | [place] [address] | + + + | Home Phone [...] + | Author | [facility] [employer] [facility] | + + + | Organization | [facility] [employer] [facility] [...] Team Providers + +------+ + | Care Laborer/Key Man Name | Role | Phone | [...] | [place] | | | | [address] [place] for | [place], [place] | | | | | Health and Healing, | [address] | | | | | [facility] | [phone] | | | | | floor [place], [place] | | | | | | [address] | | | | | | [phone] | | | +--------+ + + + [...] 10:27 AM PDTRouting message to re sidedanish mortgage protection specialist, Dr Muna Holland elephone Encounter - Monica Pizarro LPN - 03/09/2013 10:22 AM PDTReceived vm from community health nurse with [facility] notifying Dr. Pedroza s team that they are transporting her this morning after 1030 to [facility] ED. [phone] is Alexsander gamble, the nurse's phone number. [...] Hopkins PA -C - 03/06/2013 10:21 AM [id number] with a long h/o pseudotumor treated with [...] improve, we will contact the insurance co [facility] again see whether we will get approval for stent placement" Has been followed by Dr. Osorio/Dr. Mcgrath at [facility]. She has had several no-show appts with Dr. Mcgrath in late 2011. Dr. Osorio's last documented phone encounter 09/2011: "I received a call from the patient today. She missed her scheduled appointment here at [facility]. The patient is currently unable to travel to [place] since she is caring for her mother who is ill. The patient has an appt scheduled with an bobbin painter in her local area nex t week. [...] her to see the financial counselor at [facility]." Can see pt in clinic for eval of LPS (for possible explant) and possible stent placement. Pt should also continue FU with Dr. Osorio or Dr. Mcgrath for a thorough vision exam. Please coordinate appt with Dr. Beard/Dr. Pedroza for any Tuesday, at pts convenience. Also n eeds financial advisor trainee/insurance eval if stent and LPS explant will [...] come into see Dr. Pedroza's team at [facility]. documented in this encounter Plan of Treatment Not on filedocumented as of this encounter Visit Diagnoses Not on filedocumented in this encounter
--- OUTSIDE RECORDS SUMMARY | ~2020-07-19 | XMS | Encounter Summary ---
Demographics + + + | Address | [address] | | | [place] [address] | + + + | Home Phone [...] Team Providers + +------+ + | Care Partnership Marketing Manager Name | Role | Phone | + +------+ + PCP | Unavailable | + +------+ + Encounter Details +--------+ + + + + | Date | Type | Department | Care Team | Description | +--------+ + + + + | 09/20/ | Hospital | [facility] | | | | 1991 | Encounter | [facility] | | | | | | [facility] [address] | | | | | | [place], | | | | | | [place] [address] | | | | | | [phone] | | | +--------+ + + + [...]
--- OUTSIDE RECORDS SUMMARY | ~2020-07-19 | XMS | Encounter Summary ---
Demographics + + + | Address | [address] | | | [place] [address] | + + + | Home Phone [...] + | Author | [facility] | + + + | Organization | [facility] [email or web address] [facility] | + [...] Providers + +------+ + | Care Audit Practice Intern Name | Role | Phone | [...] Cerebri | | 2006 | Visit | [place] | | (Primary Dx) | | | | Neuro-Ophthalmology | | | | | | [address] [facility] | | | | | | Mailcode: PATTI | | | | | | [place] [address] | | | | | | [phone] | | | +--------+---------+ + + + [...] Referred by: CASIMIRO PAYTON MD [address] [place] [address] Symptoms: Patient feels things are better. Vision [...] Brad Currie MD Neuro-Ophthalmology and Cerebrovascular Disease Offset Lithographic Press Operator of Ophthalmology, Neurology, and Neurosurgery documented [...]
--- OUTSIDE RECORDS SUMMARY | ~2020-07-19 | XMS | Encounter Summary ---
Demographics + + + | Address | [address] | | | [place] [address] | + + + | Home Phone [...] + + + | Author | [facility] [employer] [facility] | + + + | Organization | [facility] [employer] [facility] | + + [...] Providers + +------+ + | Care Automatic Quilling Machine Operator Name | Role | Phone [...] Refill Request | | 2012 | | [place]/Ophthalmol | MD Perry | | | | | leon at [facility] [address] | | | | | | [address] [facility] | | | | | | Health and Healing, | | | | | | Building | | | | | | Floor [place], [place] | | | | | | [address] | | | | | | [phone] | | | +--------+--------+ + + + [...]
--- OUTSIDE RECORDS SUMMARY | ~2020-07-19 | XMS | Encounter Summary ---
Demographics + + + | Address | [address] | | | [place] [address] | + + + | Home Phone [...] Team Providers + +------+ + | Care Transmission Calibration Engineer Name | Role | Phone | + +------+ + PCP | Unavailable | + +------+ + Encounter Details +--------+ + + + + | Date | Type | Department | Care Team | Description | +--------+ + + + + | 08/16/ | Hospital | [facility] | | | | 1990 | Encounter | MED CTR EMERGENCY | | | | | | CENTER [address] | | | | | | [place] | | | | | | [address] | | | | | | [phone] | | | +--------+ + + + [...]
--- OUTSIDE RECORDS SUMMARY | ~2020-07-19 | XMS | Encounter Summary ---
Demographics + + + | Address | [address] | | | [place] [address] | + + + | Home Phone [...] + | Author | [facility] | + + + | Organization | [facility] [employer] [facility] | + + + | Address | Unknown | + + + | Phone | Unavailable | + + + Support + + +---------+ + | Name | Relationship | Address | Phone | + + +---------+ + | Ruby Au | ECON | Unknown | | + + +---------+ + Care Team Providers + +------+ + | Care Silver Solderer Name | Role | Phone | + [...] Cerebri; | | 2006 | Visit | Festus | Cassi Clark | Pain in or Around | | | | Oculoplastics at | [place], [place] | Eye | | | | [facility] [address] | [address] | | | | | [address] | [phone] | | | | | Eye Festus | | | | | | [facility] floor | | | | | | [place] [address] | | | | | | [phone] | | | +--------+---------+ + + + [...] to be seen here or by an manager medical affairs in [facility], but she says she does not have transportation. I will call in Vicodin #20, pt to call i mmediately if there is any worsening. Pt states lucho lump in left zoroastrian is gone. No pain. Pt. Had cough [...]
--- OUTSIDE RECORDS SUMMARY | ~2020-07-19 | XMS | Encounter Summary ---
Demographics + + + | Address | [address] | | | [place] [address] | + + + | Home Phone [...] + | Author | [facility] [employer] [facility] | + + + | Organization | [facility] [employer] [facility] | [...] Providers + +------+ + | Care Business Technology Architect Name | Role | Phone | [...] | | | Ave [facility] for | [place], [place] | | | | | Health and Healing, | [address] | | | | | [facility] | [phone] | | | | | floor [place], [place] | | | | | | [address] | | | | | | [phone] | | | +--------+---------+ + + + [...] wanted to have LP shunt instead of HUMAN RESOURCES COMPENSATION ANALYST shunt because she d oes not weant [...]
--- OUTSIDE RECORDS SUMMARY | ~2020-07-19 | XMS | Encounter Summary ---
Demographics + + + | Address | [address] | | | [place] [address] | + + + | Home Phone [...] + + | Author | [facility] [employer] [facility] | + + + | Organization | [facility] [employer] [facility] | + [...] Providers + +------+ + | Care Parts Finisher Name | Role | Phone | [...] | | | | | | [address] [place], [place] | | | | | | [address] | | | | | | [phone] | | | +--------+ + + + [...]
--- OUTSIDE RECORDS SUMMARY | ~2020-07-19 | XMS | Encounter Summary ---
Demographics + + + | Address | [address] | | | [place] [address] | + + + | Home Phone [...] Team Providers + +------+ + | Care Tile Shader Name | Role | Phone | + +------+ + PCP | Unavailable | + +------+ + Encounter Details +--------+ + + + + | Date | Type | Department | Care Team | Description | +--------+ + + + + | 10/14/ | Hospital | [facility] | | | | 1991 | Encounter | [facility] | | | | | | HEALTH [facility] [address] | | | | | | [place], | | | | | | [place] [address] | | | | | | [phone] | | | +--------+ + + + [...]
--- OUTSIDE RECORDS SUMMARY | ~2020-07-19 | XMS | Encounter Summary ---
Demographics + + + | Address | [address] | | | [place] [address] | + + + | Home Phone [...] Team Providers + +------+ + | Care Replanting Machine Operator Name | Role | Phone | + +------+ + PCP | Unavailable | + +------+ + Encounter Details +--------+ + + + + | Date | Type | Department | Care Team | Description | +--------+ + + + + | 06/20/ | Hospital | [facility] | Yovanny Suazo, | | | 1991 | Encounter | MED CTR WOMENS | MD [address] | | | | | HEALTH SVCS [address] | [address] [facility] | | | | | [place], | [place] [address] | | | | | [place] [address] | [phone] | | | | | [phone] | | | +--------+ + + + [...]
--- OUTSIDE RECORDS SUMMARY | ~2020-07-19 | XMS | Encounter Summary ---
Demographics + + + | Address | [address] | | | [place] [address] | + + + | Home Phone [...] Author | [facility] [employer] [facility] | + + + | Organization | [facility] [employer] [facility] | + [...] Team Providers + +------+ + | Care Rubber Calender Helper Name | Role | Phone | [...] | | | [facility] | [place], [place] | | | | | Health and Healing, | [address] | | | | | Building [address]th | [phone] | | | | | floor [place], [place] | | | | | | [address] | | | | | | [phone] | | | +--------+ + + + [...]
--- OUTSIDE RECORDS SUMMARY | ~2020-07-19 | XMS | Encounter Summary ---
Demographics + + + | Address | [address] | | | [place] [address] | + + + | Home Phone [...] | [facility] [place] | | | and [place] | + [...] Team Providers + +------+ + | Care Sweat Band Separator Name | Role | Phone | [...] | | | [address] | | | | | [place], [place] | [place] [address] | | | | | [address] | | | | | | [phone] | | | +--------+ + + + [...]
--- OUTSIDE RECORDS SUMMARY | ~2020-07-19 | XMS | Encounter Summary ---
Demographics + + + | Address | [address] | | | [place] [address] | + + + | Home Phone [...] Organization | [facility] [...] Providers + +------+ + | Care Mold Presser Name | Role | Phone | + +------+ + PCP | Unavailable | + +------+ + Encounter Details +--------+ + + + + | Date | Type | Department | Care Team | Description | +--------+ + + + + | 07/21/ | Hospital [facility] | | | | 1990 | Encounter | MED CTR EMERGENCY | | | | | | CENTER [address] | | | | | | [place] | | | | | | [address] | | | | | | [phone] | | | +--------+ + + + [...]
--- OUTSIDE RECORDS SUMMARY | ~2020-07-19 | XMS | Encounter Summary ---
Demographics + + + | Address | [address] | | | [place] [address] | + + + | Home Phone [...] Providers + +------+ + | Care Elevator Installer Name | Role | Phone | + +------+ + PCP | Unavailable | + +------+ + Encounter Details +--------+ + + + + | Date | Type | Department | Care Team | Description | +--------+ + + + + | 06/22/ | Hospital | [facility] | Yovanny Suazo, | | | 1991 | Encounter | MED CTR [facility] | MD [address] | | | | | HEALTH SVCS [address] | [address] [facility] | | | | | [place], | [facility] [place] [address] | | | | | [place] [address] | [phone] | | | | | [phone] | | | +--------+ + + + [...]
--- OUTSIDE RECORDS SUMMARY | ~2020-07-19 | XMS | Encounter Summary ---
Demographics + + + | Address | [address] | | | [place] [address] | + + + | Home Phone [...] Author | [facility] [employer] [facility] | + + + | Organization | [facility] [employer] [facility] | + [...] Team Providers + +------+ + | Care Regrinder Name | Role | Phone | + [...] Letter From | | 2007 | | [facility] | [address] | Specialist | | | | and Healing [address] | [place], [place] | | | | | [address] [facility] | [address] | | | | | Health and Healing, | [phone] | | | | | | | | | | | Floor [place], [place] | | | | | | [address] | | | | | | [phone] | | | +--------+ + + + [...] cerbral angiogram on 05/07/08. Her Employer is [employer]. Please fax letter to: Michael Ufmnqmihnerzap signed by Delma Cadet at 05/09/2008 9:34 AM PDTTelephone Encounter - David Frausto - 05/09/2008 9:23 AM PDTOpened in error documented in this encounter Plan of Treatment Not on filedocumented as of this encounter Visit Diagnoses Not on filedocumented in this encounter"
--- OUTSIDE RECORDS SUMMARY | ~2020-07-19 | XMS | Encounter Summary ---
Demographics + + + | Address | [address] | | | [place] [address] | + + + | Home Phone [...] + | Author | [facility] [employer] [facility] | + + + | Organization | [facility] [employer] [facility] | + + + | Address | Unknown | + + + | Phone | Unavailable | + + + Support + + +---------+ + | Name | Relationship | Address | Phone | + + +---------+ + | Ruby Au | ECON | Unknown | | + + +---------+ + Care Team Providers + +------+ + | Care Tonal Regulator Name | Role | Phone | + [...] | | | | | | | [place] | | | | | | | [id number] | | | | | | | [facility] | | | | | | | [place], | | | | | | | [place] [address] | | | | | | | Phone: | | | | | | | [phone] | +--------+--------+ + + + + Encounter Details +--------+ + + + + | Date | Type | Department | Care Team | Description | +--------+ + + + + | 08/01/ | Hospital | [facility] [address] | Sam Pedroza MD | | | 2007 - | Encounter | [place] | [address] | | | | | [id number] [facility] | [place], [place] | | | 08/02/ | | HOSPITAL [place], | [address] | | | 2007 | | [place] [address] | [phone] | | | | | [phone] | | | +--------+ + + + [...] in 2 weeks, please call for appointment: [phone] Condition On Discharge: Vital Signs at discharge [...] in 2 weeks, please call for appointment: [phone] Condition On Discharge: Vital Signs at discharge [...] at this time. Yessenia Nowak, OTR/ L [address] Tomasz Caldera Md - 02/2008 11:08 AM [...] 08/02/2008 12:16 PM PDTAssociated Order(s): ANESTHESIA/SEDATION Other, [facility] - 08/02/2008 12:16 PM PDTAssociated Order(s): ANESTHESIA/SEDATION Other, Faculty - 12:16 PM PDT Other, Faculty - 08/02/2008 12:16 PM PDTAssociated Order(s): ANESTHES IA/SEDATION Tomasz Rice - 08/01/2008 12:00 AM PDTAssociated Order(s): OPERATION RECOR D [id number] [facility] [id number] Date: 08/01/2008 Attending Surgeon: Sam Pedroza M.D. Integration Developer(s): Pooja Al M.D. Preoperative Diagnosis(es): Pseudotumor cerebri. [...] with tonsils and then gently incised. A [place] 4 was then easily fed through it, [...] M.D. Sam Pedroza M.D. SYBIL / [place] [id number] / [id number] / [id number] / am Pedroza 02/2008 12:00 AM PDTAssociated Order(s): TEACHING PHYSICIAN [id number] [facility] [place] [id number] Date: 08/01/2008 Attending Surgeon: Sam Pedroza M.D. Integration Developer(s): Pooja Al M.D. Preoperative Diagnosis(es): Pseudotumor cerebri. [...] Palomo Jansen. Sam Pedroza M.D. AD / [id number] / [id number] / [id number] / [id number] ther, Faculty - 07/24/2008 9:44 AM PDT [...] + + | Performing | Address | City/State/[facility] | Phone Number | | Organization | | | | + +---------+ + + | [facility] DEPARTMENT OF | | | | | RADIOLOGY | | | | + +---------+ + + OPERATION RECORD (08/01/2008 12:00 AM PDT) + + + | Narrative | Performed At | + + + | [id number] | | | [id number] | | | [place] [id number] Date: | | | 08/01/2008 Attending Surgeon: | | | Sam Pedroza M.D. Integration Developer(s): | | | Tomasz Rice M.D. | [...] | tonsils and then gently incised. A [place] 4 was then easily fed | | [...] | Pooja Pedroza M.D. KG / LANETTE [id number] / | | | [id number] / [id number] / | | + + + + + | Procedure Note | + + | Krystal Rushing, Tomasz - 08/01/2008 12:00 AM PDT [id number] | | [id number] PAT GRIFFIN S | | [id number] Date: 08/01/2008 Attending Surgeon: Sam | | Pooja Pedroza Integration Developer(s): Tomasz Rice M.D. | | Palomo Jansen [...] tonsils and | | thengently incised. A [place] 4 was then easily fed through it, [...] Sam Pedroza M.D. KG / | | [id number] / [id number] / [id number] / T: 08/02/2008 | |dripping from the [...] tonsils and then | |gently incised. A [place] 4 was then easily fed through it, [...] | | | |KG / HS | |[id number] / [id number] / 03891 / | | | | | | | | | | | | | | | | | | | | | + + TEACHING PHYSICIAN (08/01/2008 12:00 AM PDT) + + + | Narrative | Performed At | + + + | [id number] | | | [id number] | | | [place] [id number] | | | Date: 08/01/2008 Attending Surgeon: | | | Sam Pedroza M.D. Integration Developer(s): | | | Tomasz Rice M.D. | [...] Sam | | Leif Pedroza M.D. / [id number] / [id number] / 75789 / 22264 D: | | | 08/01/2008 | | + + + + + | Procedure Note | + + | Sam Pedroza MD - 08/01/2008 12:00 AM PDT [id number] | | [id number] [facility] [place] | | [id number] Date: 08/01/2008ttending Surgeon: Sam | | Pooja Pedroza Integration Developer(s): Tomasz Rice M.D. | | Palomo Jansen [...] | Bisi. Sam Pedroza M.D. AD / [id number] / [id number] / [id number] / 75549N: | | 08/01/2008T: 08/01/2008 | | | [...] | | | |AD / HS | |[id number] / [id number] / 35021 / 66944 | | | | | | | [...]
--- OUTSIDE RECORDS SUMMARY | ~2020-07-19 | XMS | Encounter Summary ---
Demographics + + + | Address | [address] | | | [place] [address] | + + + | Home Phone [...] Providers + +------+ + | Care Manufacturing Engineering Intern Name | Role | Phone | + +------+ + PCP | Unavailable | + +------+ + Encounter Details +--------+ + + + + | Date | Type | Department | Care Team | Description | +--------+ + + + + | 07/07/ | Hospital | [facility] | | | | 1991 | Encounter | MED CTR EMERGENCY | | | | | | CENTER [address] | | | | | | [place] | | | | | | [address] | | | | | | [phone] | | | +--------+ + + + [...]
--- OUTSIDE RECORDS SUMMARY | ~2020-07-19 | XMS | Encounter Summary ---
Demographics + + + | Address | [address] | | | [place] [address] | + + + | Home Phone [...] + | Author | [facility] | + + + | Organization | [facility] [employer] [facility] [...] Providers + +------+ + | Care Market Development Manager Name | Role | Phone [...] | | | REFERRAL TO | | [place], [place] | | | | | NEUROINTERVE | | [address] | | | | | NTIONAL | | Phone: | | | | | RADIOLOGY | | [phone] | | | | | PRACTICE | | Fax: | | | | | | | [phone] | +--------+--------+ + + + + Reason [...] Dx) | | | | Mailcode:OP14B | [place], [place] | | | | | Outpatient Clinic | [address] | | | | | Building [place], | [phone] | | | | | [place] [address] | | | | | | [phone] | | | +--------+---------+ + + + [...] resident s note. CASIMIRO PAYTON MD NEUROSURGERY [address] [place] [address] [place] [address] hPascual hanley Bri - 12:00 PM PDT [...] spots" and "tunnel vision." Last saw an dean of student services in [facility] 2 months ago. Reportedl y, this showed that her OS vision was worse - no reports available to me at this time. Was a lso admitted to the [facility] for CAPONE about a month ago. Reportedly [...] Patient was also given a prescription for [place] for CAPONE until she establishs care with [...]
--- OUTSIDE RECORDS SUMMARY | ~2020-07-19 | XMS | Encounter Summary ---
Demographics + + + | Address | [address] | | | [place] [address] | + + + | Home Phone [...] + | Author | [facility] | + + + | Organization | [facility] [employer] [facility] | + [...] Providers + +------+ + | Care Air Intercept Controller Supervisor Name | Role | Phone | [...] | Prescription | | 2012 | | [place]/Ophthalmol | MD Perry | | | | | leon at [facility] [address] | | | | | | [address] [facility] | | | | | | Health and Healing, | | | | | | Building | | | | | | Floor [place], [place] | | | | | | [address] | | | | | | [phone] | | | +--------+ + + + [...] COURT [address] [place] [phone] documented in this encounter Plan of Treatment Not on filedocumented as of this encounter Visit Diagnoses Not on filedocumented in this encounter"
--- OUTSIDE RECORDS SUMMARY | ~2020-07-19 | XMS | Encounter Summary ---
Demographics + + + | Address | [address] | | | [place] [address] | + + + | Home Phone [...] Providers + +------+ + | Care Air Press Operator Name | Role | Phone | + +------+ + PCP | Unavailable | + +------+ + Encounter Details +--------+ + + + + | Date | Type | Department | Care Team | Description | +--------+ + + + + | 09/30/ | Hospital | [facility] | | | | 1990 | Encounter | MED CTR EMERGENCY | | | | | | CENTER [address] | | | | | | [place] | | | | | | [address] | | | | | | [phone] | | | +--------+ + + + [...]
--- OUTSIDE RECORDS SUMMARY | ~2020-07-19 | XMS | Encounter Summary ---
Demographics + + + | Address | [address] | | | [place] [address] | + + + | Home Phone [...] Team Providers + +------+ + | Care Tech Intern Name | Role | Phone | + +------+ + PCP | Unavailable | + +------+ + Encounter Details +--------+ + + + + | Date | Type | Department | Care Team | Description | +--------+ + + + + | 10/18/ | Hospital | [facility] | | | | 1991 | Encounter | MED CTR WOMENS | | | | | | HEALTH SVCS [address] | | | | | | [place], | | | | | | [place] [address] | | | | | | [phone] | | | +--------+ + + + [...]
--- OUTSIDE RECORDS SUMMARY | ~2020-07-19 | XMS | Encounter Summary ---
Demographics + + + | Address | [address] | | | [place] [address] | + + + | Home Phone [...] Health [facility] [employer] [facility] | + + + | Organization | [facility] Accountable [employer] [facility] [...] Team Providers + +------+ + | Care Whiting Can Worker Name | Role | Phone | [...] [address] | | | | | | [address] | [address] | | | | | | [address] | [place], [place] | | | | | | [place], | [address] | | | | | | [place] [address] | Phone: | | | | | | Phone: | [phone] | | | | | | [phone] | Fax: | | | | | | Fax: | [phone] | | | | | | [phone] | | +--------+ + + + + [...] | | | Ave [facility] for | [place], [place] | | | | | Health and Healing, | [address] | | | | | | [phone] | | | | | floor [place], [place] | | | | | | [address] | | | | | | [phone] | | | +--------+---------+ + + + [...] soon. I spent more than 15 minutes bxwn-ld-kvkb with the patient of which greater than 50% was sp ent counseling the patient regarding the shunt removal, indications and venous sinus stent a ngioplasty. Since her shunt is brent effective now she will need narcotics for headache and he r PCP should manage that. CASIMIRO PAYTON MD NEUROSURGERY [address] Mailcode: Ch8n [facility], 8th Floor [facility] [address] documented in this encou nter Miscellaneous Notes [...]
--- OUTSIDE RECORDS SUMMARY | ~2020-07-19 | XMS | Encounter Summary ---
Demographics + + + | Address | [address] | | | [place] [address] | + + + | Home Phone [...] Author | [facility] [employer] [facility] | + + + | Organization | [facility] [employer] [facility] | + [...] Providers + +------+ + | Care Director Building Name | Role | Phone | + +------+ + | Brenden Benavides MD | PCP | | + +------+ + Encounter Details +--------+ + + + + | Date | Type | Department | Care Team | Description | +--------+ + + + + | 02/23/ | Telephone | [facility] | Brad Currie MD | | | 2006 | | [place] | | | | | | Neuro-Ophthalmology | | | | | | [address] [facility] | | | | | | Mailcode: [place] | | | | | | [place] [address] | | | | | | [phone] | | | +--------+ + + + [...] states she is not able to see double end tenoner operator in [place]- they will not see her. I spoke [...] mid sentence (second time). Omkar mccabe is dpi-elmtqzgsi-G will not attempt to call patient again. Sergio Alicia Neuro Senior Teradata Developer for MD Julieta Nielson MD I documented in t his encounter Plan of Treatment Not on filedocumented as of this encounter Visit Diagnoses Not on filedocumented in this encounter
--- OUTSIDE RECORDS SUMMARY | ~2020-07-19 | XMS | Encounter Summary ---
Demographics + + + | Address | [address] | | | [place] [address] | + + + | Home Phone [...] | Author | [facility] [employer] [facility] | + + + | Organization | [facility] [employer] [facility] | [...] Team Providers + +------+ + | Care Specialty Therapist Name | Role | Phone | [...] Erroneous Encounter | | 2007 | | [facility] | [facility] | - Disregard | | | | and Healing [address] | Neurosurgery [address] | | | | [address] | [address] | | | | | Health and Healing, | [place], [place] | | | | | [facility] | [address] | | | | | Floor [place], [place] | | | | | | [address] | | | | | | [phone] | | | +--------+--------+ + + + [...] Kiki Rosen 08/15/2008 10:45 AM PDTCalled in [place] 5 #80 with on refill to [phone] Tdocumented in this encounter Plan of Treatment Not on filedocumented as of this encounter Visit Diagnoses Not on filedocumented in this encounter"
--- OUTSIDE RECORDS SUMMARY | ~2020-07-19 | XMS | Encounter Summary ---
Demographics + + + | Address | [address] | | | [place] [address] | + + + | Home Phone [...] | Author | [facility] Image Insight [facility] | + + + | Organization | [facility] [employer]tronics A/S Science [facility] [...] Team Providers + +------+ + | Care Contract Engineer Name | Role | Phone | [...] + + | 08/24/ | Emergency | [facility] Emergency | Tylor Mcclellan, | | | 2010 | | Department [address] | [address]ala Cruz | | | | | [address] | MD Joey [address] | | | | | [facility] | Dilshad Sandra Maloney | | | | | [place], [place] | [place], [place] | | | | | [address] | [address] | | | | | [phone] | [phone] | | | | | | | [...] sheath fenestrat ion (by Dr. Hughes at [facility] in 2006) and s/p lumboperitoneal shunt (removed) [...] worth. She has not seen a n hi lo driver in years - last dilated exam was several years ago. Per chart review, pt used to be followed by Dr. Currie at [facility] neuro-op; last seen in 02/2007 w hen she was on Diamox 500mg BID. 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 Prior to her ONSF OS, she was on Diamox 1000mg BID. POH: Pseudotumor cerebri dx [address] Currie at [facility] (last seen 02/2007) S/p ONSF OS Previously [...] fenestra tion (by Dr. Hughes at [facility] in 2006) and s/p lumboperitoneal shunt failure presenting to ED with severe headache and transient visual obscurations OS. 1. 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 2. 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 -Will start Diamox 1 gram po BID, can titrate dose up in the future if symptoms not relieve d -Will plan for outpatient disc photos, visual field testing -Defer to neurosurgery regarding plans for shunt revision -Follow-up with Dr. Klein at [facility] (Comprehensive Division at [facility]) on TuesdayAugust 30 at 8:30am ([phone]). Eric Klein MD Resident Physician [facility] 08/24/2011 Patient seen and evaluated with attending physician, Dr. Funmilayo Osorio, who agrees with the [facility] findings and plan. Faculty Staffing Note: Personally repeated jade elements of history and physical and agree with documentation by e resident on this progress note. Assisted Resident and conferred with patient in regards to diagnosis and management plan. Funmilayo Osorio MD Printed Circuit Designer [facility] ang, Rach Waters MD - 08/24/2011 11:23 [...] clinic in next week. 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 No history of immune compromise.CVT was [...] been in in hospital with mother in [place]. Pt reports her local hospital in [facility] is not equipped to handle current. complaint Pt is aox3, neg stroke scale, strong flight data technician Vidhi Tong RN - 08/24/2011 9:30 AM PDTPt c/o lumbar shunt malfunction. Has had in place for 4 years w/o problem. Tuesday fever to 102. Now low back pain radiating around to front. Drove from [facility] to see Neuro as recommended by [...] note. SBAR given to Dr. Lewis @ [facility] [place] pending final neurosurgical recs for displaced lumbo-mina [...]
--- OUTSIDE RECORDS SUMMARY | ~2020-07-19 | XMS | Encounter Summary ---
Demographics + + + | Address | [address] | | | [place] [address] | + + + | Home Phone [...] | Author | [facility] [employer] [facility] | + + + | Organization | [facility] [employer] [facility] [...] Team Providers + +------+ + | Care Certifed Refrigeration Operator Name | Role | Phone | [...] | | | | cerebri | [address] | | | | | | Procedures | Ave | | | | | | CONSULT TO | [place], [place] | | | | | | [facility] | [address] | | | | | | | Phone: | | | | | | | [phone] | | | | | | | Fax: | | | | | | | [phone] | | +--------+--------+ + + + + [...] Cerebri | | 2005 | Visit | [facility] | [address] | (Primary Dx) | | | | Rd Mailcode:OP14B | [place], [place] | | | | | [facility] | [address] | | | | | [place], [place] | [phone] | | | | | [address] | | | | | | [phone] | | | +--------+---------+ + + + [...] pressu re. Referral to Dr. Maloney in [place] where a lumboperitoneal shunt was placed and subsequently explanted due to infection and migration of the catheter tip from the peritoneal space. She feels that her symptoms were helped at the time of the placement of the shunt; the head aches and visual problems have worsened since shunt removal. She has opted to come to [facility] rather than to return to [place] based on travel convenience. Review of Systems: [...] without; Neuro-ophthalmology consultation. documented in this [facility] er Plan of Treatment Not on [...] | | + +---------+ + + | [facility] DEPARTMENT OF | | | | | RADIOLOGY | | | | + +---------+ + + documented in this encounter Visit Diagnoses + + | Diagnosis | + + | Pseudotumor cerebri - Primary Benign intracranial hypertension | + + documented in this encounter
--- OUTSIDE RECORDS SUMMARY | ~2020-07-19 | XMS | Encounter Summary ---
Demographics + + + | Address | [address] | | | [place] [address] | + + + | Home Phone | | + + + | Preferred Language | Unknown | + + + | Marital Status | | + + + | Gnosticist Affiliation | NON | + + + | Race | or | + + + | Ethnic Group | Not or | + + + Author + + + | Author | [facility] [employer] [facility] | + + + | Organization | [facility] [employer] [facility] | + [...] Providers + +------+ + | Care Director Supply Chain Name | Role | Phone | + +------+ + | Brenden Benavides MD | PCP | | + +------+ + Encounter Details +--------+ + + + + | Date | Type | Department | Care Team | Description | +--------+ + + + + | 02/22/ | Telephone | [facility] | Brad Currie MD | | | 2006 | | [place] | | | | | | Neuro-Ophthalmology | | | | | | [address] [facility] | | | | | | Mailcode: PATTI | | | | | | [place] [address] | | | | | | [phone] | | | +--------+ + + + [...] infection at last visit. A tech from [facility] will be calling this patient. Sergio Alicia Neuro Hydraulic Specialist for MD Julieta Nielson MD Jacqueline Holodak wrote: Sergio, Please call patient - she says she has a green discharge coming form her eye & some pain. Thanks, Taryn documented in th is encounter Plan of Treatment Not on filedocumented as of this encounter Visit Diagnoses Not on filedocumented in this encounter"
--- OUTSIDE RECORDS SUMMARY | ~2020-07-19 | XMS | Encounter Summary ---
Demographics + + + | Address | [address] | | | [place] [address] | + + + | Home Phone [...] Team Providers + +------+ + | Care Valet Service Attendant Name | Role | Phone | + +------+ + PCP | Unavailable | + +------+ + Encounter Details +--------+ + + + + | Date | Type | Department | Care Team | Description | +--------+ + + + + | 04/21/ | Hospital | [facility] | | | | 1995 | Encounter | MED CTR EMERGENCY | | | | | | CENTER [address] | | | | | | [place] | | | | | | [address] | | | | | | [phone] | | | +--------+ + + + [...]
--- OUTSIDE RECORDS SUMMARY | ~2020-07-19 | XMS | Encounter Summary ---
Demographics + + + | Address | [address] | | | [place] [address] | + + + | Home Phone [...] | [facility] [employer] [facility] | + + + | Organization | [facility] [employer] [facility] [...] Team Providers + +------+ + | Care Multi Care Technician Name | Role | Phone | [...] [address] | (refill on [place]) | | | | Ave [facility] | [place], [place] | | | | | Health and Healing, | [address] | | | | | [facility] | [phone] | | | | | floor [place], [place] | | | | | | [address] | | | | | | [phone] | | | +--------+--------+ + + + [...] at 08/28/2008 10:11 AM PDTTelephone Encounter - Lan Mcdonnell - 08/27/2008 10:56 AM PDTPt is requesting a refill on [place]. Please call pt once this i s completed documented in thi s encounter Plan of Treatment Not on filedocumented as of this encounter Visit Diagnoses Not on filedocumented in this encounter"
--- OUTSIDE RECORDS SUMMARY | ~2020-07-19 | XMS | Encounter Summary ---
Demographics + + + | Address | [address] | | | [place] [address] | + + + | Home Phone [...] Author | [facility] [employer] [facility] | + + + | Organization | [facility] [employer] Science [facility] [...] Providers + +------+ + | Care Hair Spinner Name | Role | Phone | [...] Cerebri | | 2006 | Visit | [facility] | | (Primary Dx) | | | | Neuro-Ophthalmology | | | | | | [address] [facility] | | | | | | Mailcode: PATTI | | | | | | [place] [address] | | | | | | [phone] | | | +--------+---------+ + + + [...] Referred by: CASIMIRO PAYTON MD [address] [place] [address] Per [facility] chart note taken this morning by . Symptoms: Patient specific problem noted by patient: transient visual loss HPI: 31 y.o. year old female from [place] : Patient presents with: Transient visual loss [...] negative Pulmonary: negative GI: Problems due to termination clerk use of tylenol/ibuprofen. : negative Musculoskeletal: [...] Brad Currie MD Neuro-Ophthalmology and Cerebrovascular Disease Balance Bridge Inspector of Ophthalmology, Neurology, and Neurosurgery documented [...]
--- OUTSIDE RECORDS SUMMARY | ~2020-07-19 | XMS | Encounter Summary ---
Demographics + + + | Address | [address] | | | [place] [address] | + + + | Home Phone [...] + | Author | [facility] Balanced [facility] | + + + | Organization | [facility] [employer] [facility] | + [...] Team Providers + +------+ + | Care College Of Education Dean Name | Role | Phone [...] | | | Ave Center for | [place], [place] | | | | | Health and Healing, | [address] | | | | | Building , | [phone] | | | | | floor [place], [place] | | | | | | [address] | | | | | | [phone] | | | +--------+ + + + [...] already. I encouraged her to return to [place] to be seen in our ED by the neurosurgeons bone drier. I explained that this was a n occasion that we are unable to treat on the phone. She will call for transportation and if this is not resolved will look into returning to [facility] on Tuesday. do cumented in this encounter Plan of Treatment Not on filedocumented as of this encounter Visit Diagnoses Not on filedocumented in this encounter"
--- OUTSIDE RECORDS SUMMARY | ~2020-07-19 | XMS | Encounter Summary ---
Demographics + + + | Address | [address] | | | [place] [address] | + + + | Home Phone [...] Team Providers + +------+ + | Care Varnishing Unit Operator Name | Role | Phone | + +------+ + PCP | Unavailable | + +------+ + Encounter Details +--------+ + + + + | Date | Type | Department | Care Team | Description | +--------+ + + + + | 10/12/ | Hospital | [facility] | | | | 1991 | Encounter | [facility] | | | | | | HEALTH [facility] [address] | | | | | | [place], | | | | | | [place] [address] | | | | | | [phone] | | | +--------+ + + + [...]
--- OUTSIDE RECORDS SUMMARY | ~2020-07-19 | XMS | Encounter Summary ---
Demographics + + + | Address | [address] | | | [place] [address] | + + + | Home Phone [...] Providers + +------+ + | Care Corporate Paralegal Name | Role | Phone | + +------+ + PCP | Unavailable | + +------+ + Encounter Details +--------+ + + + + | Date | Type | Department | Care Team | Description | +--------+ + + + + | 03/14/ | Hospital | [facility] | Pancho Gonzalez | | | 2012 | Encounter | HOSPITAL EMERGENCY | MD Joey [address] [facility] | | | | | CENTER [address] | [facility] [address] | | | | | [address] [place] [place] | [place], [place] | | | | | [address] | [id number] | | | | | [phone] | | | +--------+ + + + [...]
--- OUTSIDE RECORDS SUMMARY | ~2020-07-19 | XMS | Encounter Summary ---
Demographics + + + | Address | [address] | | | [place] [address] | + + + | Home Phone [...] | [facility] [employer] [facility] | + + + | Organization | [facility] [employer] [facility] [...] Providers + +------+ + | Care Sand Drier Name | Role | Phone | + [...] Cerebri; | | 2006 | Visit | [place] | Cassi Clark | Pain in or Around | | | | Oculoplastics at | [place], [place] | Eye | | | | [facility] [address] | [address] | | | | | [address] | [phone] | | | | | Eye [place] | | | | | | [facility] floor | | | | | | [place] [address] | | | | | | [phone] | | | +--------+---------+ + + + [...] be seen here or by an manager presentation in [facility], but she says she does not have transportation. I will call in Vicodin #20, pt to call i mmediately if there is any worsening. Pt states lucho lump in left tenriism is gone. No pain. Pt. Had cough [...]
--- OUTSIDE RECORDS SUMMARY | ~2020-07-19 | XMS | Encounter Summary ---
Demographics + + + | Address | [address] | | | [place] [address] | + + + | Home Phone [...] Team Providers + +------+ + | Care Mortising Machine Operator Name | Role | Phone | + +------+ + PCP | Unavailable | + +------+ + Encounter Details +--------+ + + + + | Date | Type | Department | Care Team | Description | +--------+ + + + + | 07/12/ | Hospital | [facility] | Conversion | | | 2010 | Encounter | [facility] | Transaction, | | | | | EMERGENCY CENTER | Provider Unknown | | | | | [address] | [phone] | | | | | [place] | | | | | | [address] | | | | | | [phone] | | | +--------+ + + + [...]
--- OUTSIDE RECORDS SUMMARY | ~2020-07-19 | XMS | Encounter Summary ---
Demographics + + + | Address | [address] | | | [place] [address] | + + + | Home Phone [...] + + + | Author | [facility]ve[employer] [facility] | + + + | Organization | [facility] Nut[employer] Education Science [facility] [...] Team Providers + +------+ + | Care Academic Manager Name | Role | Phone | [...] | | | | 03/01/ | | [facility] | | | | 2013 | | [place], [place] | | | | | | [address] | | | | | | [phone] | | | +--------+ + + + [...] 11:55 PM PDTBoth 's were advised that [facility] I S CURRENTLY AT [...]
--- OUTSIDE RECORDS SUMMARY | ~2020-07-19 | XMS | Encounter Summary ---
Demographics + + + | Address | [address] | | | [place] [address] | + + + | Home Phone [...] Providers + +------+ + | Care Concrete Pointer Name | Role | Phone | + +------+ + PCP | Unavailable | + +------+ + Encounter Details +--------+ + + + + | Date | Type | Department | Care Team | Description | +--------+ + + + + | 01/01/ | Hospital | [facility] | [place] | | | 2009 | Encounter | MED CTR EMERGENCY | Brad Yu MD [address] | | | | | [place] [place] [address] | [facility] | | | | | [place] | [place] [address] | | | | | [address] | [phone] | | | | | [phone] | | | +--------+ + + + [...]
--- OUTSIDE RECORDS SUMMARY | ~2020-07-19 | XMS | Encounter Summary ---
Demographics + + + | Address | [address] | | | [place] [address] | + + + | Home Phone [...] | Author | [facility] [facility] | + + + | Organization | [facility] [employer] [facility] | [...] Providers + +------+ + | Care Child Care Aide Name | Role | Phone [...] | | | | | hypertension | [place], [place] | [place], [place] | | | | | Procedures | [address] | [address] | | | | | REQUEST TO | Phone: | Phone: | | | | | SURGERY | [phone] | [phone] | | | | | ADVANCED MANUFACTURING ENGINEER | Fax: | Fax: | | | | | [place] INSTALL | [phone] | [phone] | | | | | SPINAL | [...] Ave | | | | | Ave [facility] | [place], [place] | | | | | Health and Healing, | [address] | | | | | [facility] | [phone] | | | | | floor [place], [place] | | | | | | [address] | | | | | | [phone] | | | +--------+ + + + [...]
--- OUTSIDE RECORDS SUMMARY | ~2020-07-19 | XMS | Encounter Summary ---
Demographics + + + | Address | [address] | | | [place] [address] | + + + | Home Phone [...] | Author | [facility] [employer] [facility] | + + + | Organization | [facility] [employer] [facility] [...] Team Providers + +------+ + | Care Tearoom Host/Hostess Name | Role | Phone | [...] | | | | | [address] [place] [place] for | [address] | | | | | Health and Healing, | [facility] [place] | | | | | | [address] | | | | | Floor [place], [place] | | | | | | [address] | | | | | | [phone] | | | +--------+--------+ + + + [...]
--- OUTSIDE RECORDS SUMMARY | ~2020-07-19 | XMS | Encounter Summary ---
Demographics + + + | Address | [address] | | | [place] [address] | + + + | Home Phone [...] Author | [facility] [employer] [facility] | + + + | Organization | [facility] [employer] [facility] [...] Providers + +------+ + | Care Hot Repairman Name | Role | Phone | [...] [facility] | [place], [place] | | | | | Health and Healing, | [address] | | | | | [facility] | [phone] | | | | | floor [place], [place] | | | | | | [address] | | | | | | [phone] | | | +--------+ + + + [...] lying down. She is currently driving to [facility]. She thinks she might be retaining water somewhere. I indicated that I could not evaluate her over the phone and I a lso couldn't guarantee a transfer to [facility]. She verbalized understanding. Electronically sig brad by Eladio Pang MD at 03/11/2013 8:00 AM PDTdocumented in this encounter Plan of Treatment Not on filedocumented as of this encounter Visit Diagnoses Not on filedocumented in this encounter"
--- OUTSIDE RECORDS SUMMARY | ~2020-07-19 | XMS | Encounter Summary ---
Demographics + + + | Address | [address] | | | [place] [address] | + + + | Home Phone [...] + | Organization | [facility] | [...] Team Providers + +------+ + | Care On Air Host Name | Role | Phone | + +------+ + PCP | Unavailable | + +------+ + Encounter Details +--------+ + + + + | Date | Type | Department | Care Team | Description | +--------+ + + + + | 06/19/ | Hospital | [facility] | | | | 1991 | Encounter | [facility] | | | | | | [facility]ALTH [facility] [address] | | | | | | [place], | | | | | | [place] [address] | | | | | | [phone] | | | +--------+ + + + [...]
--- OUTSIDE RECORDS SUMMARY | ~2020-07-19 | XMS | Clinical Summary ---
Demographics + + + | Address | [address] | | | [place] [address] | + + + | Home Phone [...] Organization | [facility] [...] Providers + +------+ + | Care Cable Armorer Name | Role | Phone | + [...] +---------+--------+ | [place] | MEDICA | [id number] | 11/09/ | [phone] | | Medica | | | [place] | | 2018-P | 2 | | id | | | PLUS | | resent | | | | + +--------+ +--------+ +---------+--------+ | [facility] | IHS | [id number] | 11/08/ | | | Indemn | [...] | 1975 | [phone] | [place] [address] | | | rene | | | 5 (Home) | | + +--------+ +--------+ + + Advance Directives + + + + + | Type | Date Recorded | Patient | Explanation | | | | Manager Ecommerce | | + + + + + | Power of | | | | | Mechanical Integrity Engineer | | | | + + + + + | Advance | | | | | Directive | | | | + + + + +
--- OUTSIDE RECORDS SUMMARY | ~2020-07-19 | XMS | Encounter Summary ---
Demographics + + + | Address | [address] | | | [place] [address] | + + + | Home Phone [...] + | Author | [facility] [employer] [facility] | + + + | Organization | [facility] [address] Science [facility] [...] Providers + +------+ + | Care Liner Installer Name | Role | Phone | [...] | [address] | | | | Ave [place] for | [place], [place] | | | | | Health and Healing, | [address] | | | | | [facility] | [phone] | | | | | floor [place], [place] | | | | | | [address] | | | | | | [phone] | | | +--------+ + + + [...] 10:27 AM PDTRouting message to re sidedanish clinical consultant, Dr Muna Holland elephone Encounter - Monica Pizarro LPN - 03/09/2013 10:22 AM PDTReceived vm from community health nurse with [facility] notifying Dr. Pedroza s team that they are transporting her this morning after 1030 to [facility] ED. [phone] is Alexsander gamble, the nurse's phone number. [...] Hopkins PA -C - 03/06/2013 10:21 AM [id number] with a long h/o pseudotumor treated with [...] improve, we will contact the insurance co [facility] again see whether we will get approval for stent placement" Has been followed by Dr. Osorio/Dr. Mcgrath at [facility]. She has had several no-show appts with Dr. Mcgrath in late 2011. Dr. Osorio's last documented phone encounter 09/2011: "I received a call from the patient today. She missed her scheduled appointment here at [facility]. The patient is currently unable to travel to [place] since she is caring for her mother who is ill. The patient has an appt scheduled with an corporate quality manager in her local area nex t week. [...] her to see the financial counselor at [facility]." Can see pt in clinic for eval of LPS (for possible explant) and possible stent placement. Pt should also continue FU with Dr. Osorio or Dr. Mcgrath for a thorough vision exam. Please coordinate appt with Dr. Beard/Dr. Pedroza for any Tuesday, at pts convenience. Also n eeds financial institution manager/insurance eval if stent and LPS explant will [...] come into see Dr. Pedroza's team at [facility]. documented in this encounter Plan of Treatment Not on filedocumented as of this encounter Visit Diagnoses Not on filedocumented in this encounter
--- OUTSIDE RECORDS SUMMARY | ~2020-07-19 | XMS | Encounter Summary ---
Demographics + + + | Address | [address] | | | [place] [address] | + + + | Home Phone [...] + + | Author | [facility] [employer] [facility] | + + + | Organization | [facility] [employer] [facility] [...] Team Providers + +------+ + | Care Liaison Engineer Name | Role | Phone | [...] [phone] | | | | | kiran [facility] | [facility] | | | | | Health and Healing, | Rd [place], [place] | | | | | | [address] | | | | | floor [place], [place] | [phone] | | | | | [address] | | | | | | [phone] | | | +--------+ + + + [...]
--- OUTSIDE RECORDS SUMMARY | ~2020-07-19 | XMS | Encounter Summary ---
Demographics + + + | Address | [address] | | | [place] [address] | + + + | Home Phone [...] | Author | [facility] [employer] [facility] | + + + | Organization | [facility] [employer] [facility] | + [...] Providers + +------+ + | Care Assembly Member Name | Role | Phone | [...] | | | [facility] for | [place], [place] | Encounters | | | | Health and Healing, | [address] | | | | | [facility] | [phone] | | | | | floor [place], [place] | | | | | | [address] | | | | | | [phone] | | | +--------+ + + + [...] Pedroza last approved the rx 05/01/08 for Huttig 10-325mg, #90, take 1 tablet every 4-6 hours as needed for pain. I verified this information with the [facility] pharmacy. Kiki approved the rx for Huttig 10-325mg, #80, take 1 tablet every 4-6 hours prn, No refills. This was called into [facility] pharmacy, spoke kirt sandra Garcia, . [...]
--- OUTSIDE RECORDS SUMMARY | ~2020-07-19 | XMS | Encounter Summary ---
Demographics + + + | Address | [address] | | | [place] [address] | + + + | Home Phone [...] + | Author | [facility] [employer] [facility] | + + + | Organization | [facility] [employer] [facility] | + [...] Team Providers + +------+ + | Care Synthetic Resin Operator Name | Role | Phone | [...] Letter Encounter | | 2009 | | [facility] | [address] | | | | | and Healing [address] | [place], [place] | | | | | [address] [facility] | [address] | | | | | Health and Healing, | [phone] | | | | | | | | | | | Floor [place], [place] | | | | | | [address] | | | | | | [phone] | | | +--------+ + + + [...] 01/27/2009 1:25 PM PSTInformed patient to fax [facility] l records release to the medical records department. elephone Encounter - Citlaly Aguilar - 01/22/2009 2:08 PM PSTPatient called to request documentation, on her care with Dr. Pedroza, so she may give this informati on to her document review attorney. Patient indicated that she also needs documentation stating when her la st surgery was and the medications that were prescribed to her for her post-operative recove ry and pain management. Patient requested that this information be sent to Anoop See, [facility] [address] [place] [address]. Please call patient to discuss. documented in this encounter Plan of Treatment Not on filedocumented as of this encounter Visit Diagnoses Not on filedocumented in this encounter"
--- OUTSIDE RECORDS SUMMARY | ~2020-07-19 | XMS | Encounter Summary ---
Demographics + + + | Address | [address] | | | [place] [address] | + + + | Home Phone [...] + +------+ + | Care Direct Sales Consultant Name | Role | Phone | + +------+ + PCP | Unavailable | + +------+ + Encounter Details +--------+ + + + + | Date | Type | Department | Care Team | Description | +--------+ + + + + | 07/14/ | Hospital | [facility] | | | | 1998 | Encounter | MED CTR EMERGENCY | | | | | | CENTER [address] | | | | | | [place] | | | | | | [address] | | | | | | [phone] | | | +--------+ + + + [...]
--- OUTSIDE RECORDS SUMMARY | ~2020-07-19 | XMS | Encounter Summary ---
Demographics + + + | Address | [address] | | | [place] [address] | + + + | Home Phone [...] + + | 11/04/ | Hospital | [facility] | Unknown, | | | 2005 | Encounter | MED CTR XRAY [address] | Practitioner, MD . | | | | | [place] [place] | | | | | | [place] [address] | (Fax) | | | | | [phone] | | | +--------+ + + + [...]
--- OUTSIDE RECORDS SUMMARY | ~2020-07-19 | XMS | Encounter Summary ---
Demographics + + + | Address | [address] | | | [place] [address] | + + + | Home Phone [...] + + | Author | [facility] [employer] [facility] | + + + | Organization | [facility] [employer] [facility] [...] Team Providers + +------+ + | Care E Mail System Administrator Name | Role | Phone | + +------+ + | Brenden Benavides MD | PCP | | + +------+ + Encounter Details +--------+ + + + + | Date | Type | Department | Care Team | Description | +--------+ + + + + | 02/23/ | Telephone | [facility] | Brad Currie MD | | | 2006 | | [place] | | | | | | Neuro-Ophthalmology | | | | | | [address] [facility] | | | | | | Mailcode: PATTI | | | | | | [place] [address] | | | | | | [phone] | | | +--------+ + + + [...] states she is not able to see econometrician in [place]- they will not see her. I spoke [...] mid sentence (second time). Omkar mccabe is [id number] will not attempt to call patient again. Sergio Alicia Neuro Ticker Installer for MD Julieta Nielson MD I documented in t his encounter Plan of Treatment Not on filedocumented as of this encounter Visit Diagnoses Not on filedocumented in this encounter
--- OUTSIDE RECORDS SUMMARY | ~2020-07-19 | XMS | Encounter Summary ---
Demographics + + + | Address | [address] | | | [place] [address] | + + + | Home Phone [...] + + | Author | [facility] [employer] [facility] | + + + | Organization | [facility] | + [...] Providers + +------+ + | Care International Accounting Manager Name | Role | Phone [...] [address] | | | | | | [facility] for | | | | | | Health and Healing, | | | | | | Building | | | | | | floor [place], [place] | | | | | | [address] | | | | | | [phone] | | | +--------+ + + + [...]
--- OUTSIDE RECORDS SUMMARY | ~2020-07-19 | XMS | Encounter Summary ---
Demographics + + + | Address | [address] | | | [place] [address] | + + + | Home Phone [...] | Organization | [facility] [...] Team Providers + +------+ + | Care Parking Attendant Name | Role | Phone | + +------+ + PCP | Unavailable | + +------+ + Encounter Details +--------+ + + + + | Date | Type | Department | Care Team | Description | +--------+ + + + + | 09/30/ | Hospital | [facility] | | | | 1991 | Encounter | MED CTR WOMENS | | | | | | [facility]ALTH [facility] [address] | | | | | | [place], | | | | | | [place] [address] | | | | | | [phone] | | | +--------+ + + + [...]
--- OUTSIDE RECORDS SUMMARY | ~2020-07-19 | XMS | Encounter Summary ---
Demographics + + + | Address | [address] | | | [place] [address] | + + + | Home Phone [...] Organization | [facility] [...] Team Providers + +------+ + | Care Chef Name | Role | Phone | + +------+ + PCP | Unavailable | + +------+ + Encounter Details +--------+ + + + + | Date | Type | Department | Care Team | Description | +--------+ + + + + | 03/29/ | Hospital | [facility] | | | | 2006 | Encounter | MED CTR XRAY [address] | | | | | | [place] | | | | | | [place] [address] | | | | | | [phone] | | | +--------+ + + + [...]
--- OUTSIDE RECORDS SUMMARY | ~2020-07-19 | XMS | Encounter Summary ---
Demographics + + + | Address | [address] | | | [place] [address] | + + + | Home Phone | | + + + | Preferred Language | Unknown | + + + | Marital Status | | + + + | Protestant Affiliation | NON | + + + | Race | or | + + + | Ethnic Group | Not or | + + + Author + + + | Author | [facility] | + + + | Organization | [facility] [employer] [facility] [...] Providers + +------+ + | Care Manager Web Name | Role | Phone | + [...] | | | | | | | [facility] | | | | | | | Hospital | | | | | | | [place], [place] | | | | | | | [address] | | | | | | | Phone: | | | | | | | [phone] | | | | | | | Fax: | | | | | | | [phone] | +--------+--------+ + + + + Encounter Details +--------+ + + + + | Date | Type | Department | Care Team | Description | +--------+ + + + + | 05/07/ | Hospital | [facility] [address] | [place], | | | 2007 | Encounter | [address] | MD [place] | | | | | [facility] [facility] | MD Holden,PhD | | | | | [place] | | | | | | [address] | | | | | | [phone] | | | +--------+ + + + [...] documented in this encounter Procedure Notes Other, [facility] - 05/07/2008 3:15 PM PDTAssociated Order(s): RADIOLOGY Other, [facility] - 3:15 PM PDTAssociated Order(s): ORDERS OTHER Other, [facility] - 05/07/2008 3:15 PM PDT documented in this encounter Miscellaneous Notes Scan - Other, [facility] - 05/07/2008 3:15 PM PDT Scan - Other, [facility] - 05/07/2008 3:15 P M PDT [...] Dennis, | | | | | | M.D.Limousine And Hearse Upholsterer surgeon: . | | | | | [...] | | | | | | vein with6-Fijian Envoy | | | | | | [...] artery. | | | | | | [id number] Raffi | | | | | | [...] | | | | | with a 6-Fijian Envoy | | | | | | [...] | | + +---------+ + + | [facility] DEPARTMENT OF | [...]
--- OUTSIDE RECORDS SUMMARY | ~2020-07-19 | XMS | Encounter Summary ---
Demographics + + + | Address | [address] | | | [place] [address] | + + + | Home Phone [...] | Organization | [facility] [...] Team Providers + +------+ + | Care Apns Name | Role | Phone | + [...] | | | EMERGENCY CENTER | [place] [address] | | | | | [address] | [phone] | | | | | [place] | | | | | | [address] | | | | | | [phone] | | | +--------+ + + + [...] of this encounter ED Notes Maryellen Ramos, FIRE APPARATUS ENGINEER - 10/03/2013 12:05 AM [facility] PATIENT NAME: ANNABELLA STEWART TREATMENT DATE: 07/17/2011 ADMISSION DATE: 07/17/2011 Age/Sex: 35Y / F : 1975 [id number] / [id number] CHIEF COMPLAINT: Anxiety. HISTORY OF PRESENT ILLNESS: [...] saturatio ns 95% on room air. INTEGUMENT: Prentiss, warm and dry. No lesions, lacerations or abrasions. HEENT: Normocephalic, atraumatic. Pupils are equal, round, and reactive to light and accomm odation. EOMs are intact. MUSCULOSKELETAL: Moves all extremities well. HEART: Regular rate and rhythm. LUNGS: Clear. ABDOMEN: Benign. GENITOURINARY/RECTAL: Deferred. MINTHORN,S YLVIA S ADM:07/17/11 [id number] [facility] ER EMERGENCY DEPARTMENT RECORD [facility] JASPER Dorantes E-Sign: [facility] MD Lizeth Smith THIS REPORT IS CONFIDENTIAL AND NOT TO BE RELEASED WITHOUT PROPER AUTHORIZATION. [facility] NEUROLOGIC: Intact. PSYCHIATRIC: Calm and cooperative. [...] help with sleep at night. Followup with [facility]. Return if symptoms worsen. Discharged stable. JASPER Mc MD [facility] #[id number] cc: MD Maryellen Parker ARNP Electronically Signed 07/20/11 0136 Domingo Darby MD MINTHORN,S ANGLEA S ADM:07/17/11 [id number] [facility] ER EMERGENCY DEPARTMENT RECORD [facility] JASPER Dorantes E-Sign: [facility] MD Lizeth Smith THIS REPORT IS CONFIDENTIAL AND NOT TO BE RELEASED WITHOUT PROPER AUTHORIZATION.Electronica lly signed by JASPER Mc at 10/03/2013 10:53 AM PSTdocumented in this encounter Plan of Treatment Not on filedocumented as of this encounter Visit Diagnoses Not on filedocumented in this encounter"
--- OUTSIDE RECORDS SUMMARY | ~2020-07-19 | XMS | Encounter Summary ---
Demographics + + + | Address | [address] | | | [place] [address] | + + + | Home Phone [...] | Author | [facility] [employer] [facility] | + + + | Organization | [facility] [employer] [facility] | + [...] Cerebri; | | 2006 | Visit | Mingus/Ophthalmol | | Papilledema | | | | ogy at [facility] [address] | | Associated with | | | | [facility] for | | Increased | | | | Health and Healing, | | Intracranial | | | | Building | | Pressure; Transient | | | | Floor [place], [place] | | Visual Loss | | | | [address] | | | | | | [phone] | | | +--------+---------+ + + + [...] HPI: 31 y.o. year old female from [place] : Patient presents with: Transient visual loss [...] seconds; these occur 2-3 x per w comanche. Hobbies: Tobacco use: reports that she has [...] psuedotumor w [facility] neuro-ophth. [facility] [...]
--- OUTSIDE RECORDS SUMMARY | ~2020-07-19 | XMS | Encounter Summary ---
Demographics + + + | Address | [address] | | | [place] [address] | + + + | Home Phone [...] Health [facility] [employer] [facility] | + + + | Organization | [facility] [employer] [facility] [...] Team Providers + +------+ + | Care Bucket Pusher Name | Role | Phone | + +------+ + | Dennis Maddox | PCP | | + +------+ + Encounter Details +--------+ + + + + | Date | Type | Department | Care Team | Description | +--------+ + + + + | 02/28/ | Emergency | [facility] Emergency | | | | 2013 - | | Department [address] | | | | | | [address] | | | | 03/01/ | | [facility] | | | | 2013 | | [place], [place] | | | | | | [address] | | | | | | [phone] | | | +--------+ + + + [...] 11:55 PM PDTBoth 's were advised that [facility] I S CURRENTLY AT CAPACITY [...]
--- OUTSIDE RECORDS SUMMARY | ~2020-07-19 | XMS | Encounter Summary ---
Demographics + + + | Address | [address] | | | [place] [address] | + + + | Home Phone [...] | Organization | [facility] [...] Team Providers + +------+ + | Care Jet Inspector Name | Role | Phone | + +------+ + PCP | Unavailable | + +------+ + Encounter Details +--------+ + + + + | Date | Type | Department | Care Team | Description | +--------+ + + + + | 05/28/ | Hospital | [facility] | | | | 1991 | Encounter | MED CTR EMERGENCY | | | | | | CENTER [address] | | | | | | [place] | | | | | | [address] | | | | | | [phone] | | | +--------+ + + + [...]
--- OUTSIDE RECORDS SUMMARY | ~2020-07-19 | XMS | Encounter Summary ---
Demographics + + + | Address | [address] | | | [place] [address] | + + + | Home Phone [...] + | Author | [facility] | + + + | Organization | [facility] [employer] [facility] | + + + | Address | Unknown | + + + | Phone | Unavailable | + + + Support + + +---------+ + | Name | Relationship | Address | Phone | + + +---------+ + | Ruby Au | ECON | Unknown | | + + +---------+ + Care Team Providers + +------+ + | Care Meal Temperer Name | Role | Phone | + [...] Cerebri | | 2006 | Visit | [place] | | (Primary Dx) | | | | Neuro-Ophthalmology | | | | | | [address] [facility] | | | | | | Mailcode: PATTI | | | | | | [place] [address] | | | | | | [phone] | | | +--------+---------+ + + + [...] Brad Currie MD Neuro-Ophthalmology and Cerebrovascular Disease Dictating Machine Typist of Ophthalmology, Neurology, and Neurosurgery documented in [...]
--- OUTSIDE RECORDS SUMMARY | ~2020-07-19 | XMS | Encounter Summary ---
Demographics + + + | Address | [address] | | | [place] [address] | + + + | Home Phone [...] Author | [facility] [employer] [facility] | + + + | Organization | [facility] [facility] | + + [...] Providers + +------+ + | Care Director Education Name | Role | Phone | + [...] Other | | 2005 | | [facility] | PA-C [address] | | | | | Rd Mailcode:OP14B | [place], [place] | | | | | [facility] | [id number] | | | | | [place], [place] | | | | | | [address] | | | | | | [phone] | | | +--------+ + + + [...] it all to you. Her # is [phone]. Barb documented in this e ncounter Plan of Treatment Not on filedocumented as of this encounter Visit Diagnoses Not on filedocumented in this encounter"
--- OUTSIDE RECORDS SUMMARY | ~2020-07-19 | XMS | Encounter Summary ---
Demographics + + + | Address | [address] | | | [place] [address] | + + + | Home Phone [...] + | Author | [facility] | + + + | Organization | [facility] | + [...] Team Providers + +------+ + | Care Substation Technician Name | Role | Phone | [...] | | | | Physician's | [place], [place] | | | | | [place], [facility] floor | [address] | | | | | [place], [place] | [phone] | | | | | [address] | | | | | | [phone] | | | +--------+ + + + [...] states that her bed at [facility] is on the floor. She is requesting that Dr. Pedroza write her a prescription for a hosptial bed so she can have it after her surgery on Tuesday05/07/08. If the prescription is approved, please fax to attn: Jessenia [phone]. Please call pt back on her cell phone if approved or denied. She is hoping to get the bed r equested stanislav since surgery is on Tuesday. 08 10:35 AM PDTdocumented in this encounter Plan of Treatment Not on filedocumented as of this encounter Visit Diagnoses Not on filedocumented in this encounter"
--- OUTSIDE RECORDS SUMMARY | ~2020-07-19 | XMS | Encounter Summary ---
Demographics + + + | Address | [address] | | | [place] [address] | + + + | Home Phone [...] + + | 07/06/ | Hospital | [facility] | Mirna Lambert | | | 2007 | Encounter | MED CTR EMERGENCY | MD [address] | | | | | CENTER [address] | [facility], | | | | | [place], [place] | [place] [address] | | | | | [address] | [phone] | | | | | [phone] | | | +--------+ + + + [...]
--- OUTSIDE RECORDS SUMMARY | ~2020-07-19 | XMS | Encounter Summary ---
Demographics + + + | Address | [address] | | | [place] [address] | + + + | Home Phone [...] Team Providers + +------+ + | Care Prior Authorization Technician Name | Role | Phone | + +------+ + PCP | Unavailable | + +------+ + Encounter Details +--------+ + + + + | Date | Type | Department | Care Team | Description | +--------+ + + + + | 07/24/ | Hospital | [facility] | | | | 1990 | Encounter | MED CTR EMERGENCY | | | | | | CENTER [address] | | | | | | [place] | | | | | | [address] | | | | | | [phone] | | | +--------+ + + + [...]
--- OUTSIDE RECORDS SUMMARY | ~2020-07-19 | XMS | Encounter Summary ---
Demographics + + + | Address | [address] | | | [place] [address] | + + + | Home Phone [...] Organization | [facility] [...] Team Providers + +------+ + | Care Electrician Refinery Name | Role | Phone | + +------+ + PCP | Unavailable | + +------+ + Encounter Details +--------+ + + + + | Date | Type | Department | Care Team | Description | +--------+ + + + + | 07/10/ | Emergency | [facility] | [address] | Headache; Benign | | 2012 | | MEDICAL CENTER | [place] [address] | intracranial | | | | EMERGENCY CENTER | [address] | hypertension; Back | | | | [address] | [place] [address] | pain | | | | [place], [place] | [phone] | | | | | [address] | | | | | | [phone] | | | +--------+ + + + [...] 07/10/132043 Date of Service: 07/10/132043 Status: Signed Cytology Technologist: Magdiel Jansen RN (Registered Nurse) Pt stated [...] 07/10/132041 Date of Service: 07/10/132024 Status: Signed Cytology Technologist: Magdiel Jansen RN (Registered Nurse) Returned from radiology. Tolerated procedure well. Magdiel Jansen RN 07/10/132041 onver ludwin Transaction, Provider Unknown - 07/10/2013 8:02 PM PDT ED Notes by Magdiel Jansen RN at 07/10/132001 Author: Magdiel Jansen RN Service: (none) Author Type: Registered Nurse Filed: 07/10/132002 Date of Service: 07/10/132001 Status: Signed Cytology Technologist: Magdiel Jansen RN (Registered Nurse) Pt transported to radiology via gurney with tech. Magdiel Jansen RN 07/10/132002 erry Negro MD - 07/10/2013 7:29 PM PDTFormatting of this note might be different from th e original. ED Provider Notes by Anoop Flores MD at 07/10/131928 Author: Anoop Flores MD Service: (none) Author Type: Physician Filed: 07/10/132239 Date of Service: 07/10/131928 Status: Signed Cytology Technologist: Anoop Flores MD (Physician) [facility] Department of Emergency Medicine History of Present [...] shown by XR with her Dr in [place] earlier in the year. Reports grad ual [...] et. Care prior to arrival consisted of [place] twice daily, with no relief. Patient cannot catarina e NSAIDS. Patient's shunt [place] [address] [place] in [facility] [place], for Hydrocephalus. Patient stat es she had no problems with it until this year. Patient has been having headaches all year. Patient lives in [place], spoke with the Neurosurgeon ribbon hand, and was told to go to a [facility] with a Neurosurgeon. PCP: [facility] Past Medical History Diagnosis Date Diabetes [...] Value Ref Range Date/Time Comprehensive metabolic panel [[id number]] (Abnormal) Collected:07/10/131946 Order Status:Completed Updated:07/10/132010 Specimen Information:Blood [...] EGFR >60 >60 mL/min/1.73m2 CBC with differential [[id number]] (Abnormal) Collected:07/10/131946 Order Status:Completed Updated:07/10/131953 Specimen Information:Blood [...] this week [address] [facility] [address] [facility] [address] [facility] Follow up next week [address] [place] [address] [facility] Emergency Department If symptoms worsen [address] [facility] [address] Discharge Medications: New Prescriptions No new medications Additional Documentation Procedures Attending Note: Documentation assistance provided by Jade Burgos (Scribe). Information recorded by the scribe has been reviewed and validated by . Simon nolasco with its contents. Anoop Flores MD 07/10/13 4560 onversio n Transaction, Provider Unknown - 07/10/2013 6:15 PM PDTFormatting of this note might be di fferent from the original. ED Notes by Magdiel Jansen RN at 07/10/131814 Author: Magdiel Jansen RN Service: (none) Author Type: Registered Nurse Filed: 07/10/131938 Date of Service: 07/10/131814 Status: Signed Cytology Technologist: Magdiel Jansen RN (Registered Nurse) Bed side [...] | + + + | ANNABELLA Waters [facility] CT HEAD WO CONTRAST HISTORY: 37 years. [...]
--- OUTSIDE RECORDS SUMMARY | ~2020-07-19 | XMS | Encounter Summary ---
Demographics + + + | Address | [address] | | | [place] [address] | + + + | Home Phone [...] Team Providers + +------+ + | Care Transfer Agent Name | Role | Phone | + +------+ + PCP | Unavailable | + +------+ + Encounter Details +--------+ + + + + | Date | Type | Department | Care Team | Description | +--------+ + + + + | 08/01/ | Hospital | [facility] | | | | 1991 | Encounter | MED CTR WOMENS | | | | | | HEALTH [facility]CS [address] | | | | | | [place], | | | | | | [place] [address] | | | | | | [phone] | | | +--------+ + + + [...]
--- OUTSIDE RECORDS SUMMARY | ~2020-07-19 | XMS | Encounter Summary ---
Demographics + + + | Address | [address] | | | [place] [address] | + + + | Home Phone [...] + + | Author | [facility] | + + + | Organization | [facility] [employer] [facility] | + [...] Team Providers + +------+ + | Care Joint Cleaning Machine Operator Name | Role | Phone [...] | | | | | | | [place] | | | | | | | Sandra Maloney [address] | | | | | | | [facility] | | | | | | | Hospital | | | | | | | [place], [place] | | | | | | | [address] | | | | | | | Phone: | | | | | | | [phone] | | | | | | | Fax: | | | | | | | [phone] | +--------+--------+ + + + + Encounter Details +--------+ + + + + | Date | Type | Department | Care Team | Description | +--------+ + + + + | 05/07/ | Hospital | [facility] [address] | [place]y [place], | | | 2007 | Encounter | [address] | MD [place] | | | | | 11[address] [facility] | MD Holden,PhD | | | | | [place] | | | | | | [address] | | | | | | [phone] | | | +--------+ + + + [...] documented in this encounter Procedure Notes Other, [facility] - 05/07/2008 3:15 PM PDTAssociated Order(s): RADIOLOGY Other, [facility] - 3:15 PM PDTAssociated Order(s): ORDERS OTHER Other, [facility] - 05/07/2008 3:15 PM PDT documented in this encounter Miscellaneous Notes Scan - Other, [facility] - 05/07/2008 3:15 PM PDT Scan - Other, [facility] - 05/07/2008 3:15 P M [...] Dennis, | | | | | | M.D.Imaging Account Manager surgeon: . | | | | [...] | | | | | | vein with6-Mongolian Envoy | | | | | | [...] artery. | | | | | | W7Cuevis Raffi | | | | | | [...] | | | | | with a 6-Mongolian Envoy | | | | | | [...] | | + +---------+ + + | [facility] DEPARTMENT OF | | | | [...]
--- OUTSIDE RECORDS SUMMARY | ~2020-07-19 | XMS | Encounter Summary ---
Demographics + + + | Address | [address] | | | [place] [address] | + + + | Home Phone [...] + | Organization | [facility] | [...] Providers + +------+ + | Care Diet Kitchen Cook Name | Role | Phone | + +------+ + PCP | Unavailable | + +------+ + Encounter Details +--------+ + + + + | Date | Type | Department | Care Team | Description | +--------+ + + + + | 07/06/ | Hospital | [facility] | Mirna Lambert | | | 2007 | Encounter | MED CTR EMERGENCY | MD [address] | | | | | CENTER [address] | [facility], | | | | | [place], [place] | [place] [address] | | | | | [address] | [phone] | | | | | [phone] | | | +--------+ + + + [...]
--- OUTSIDE RECORDS SUMMARY | ~2020-07-19 | XMS | Encounter Summary ---
Demographics + + + | Address | [address] | | | [place] [address] | + + + | Home Phone [...] + + + | Author | [facility] | + + + | Organization | [facility] | + + [...] +------+ + | Care Sales And Marketing Professional Name | Role | Phone | [...] | | | Ave [facility] for | [place], [place] | | | | | Health and Healing, | [address] | | | | | [facility] | [phone] | | | | | floor [place], [place] | | | | | | [address] | | | | | | [phone] | | | +--------+---------+ + + + [...]
--- OUTSIDE RECORDS SUMMARY | ~2020-07-19 | XMS | Encounter Summary ---
Demographics + + + | Address | [address] | | | [place] [address] | + + + | Home Phone [...] + | Author | [facility] | + + + | Organization | [facility] [employer] [facility] | + [...] Providers + +------+ + | Care Sole Leveler Machine Name | Role | Phone | [...] [address] | (refill on [place]) | | | | Ave [facility] | [place], [place] | | | | | Health and Healing, | [address] | | | | | [facility] | [phone] | | | | | floor [place], [place] | | | | | | [address] | | | | | | [phone] | | | +--------+--------+ + + + [...] AM PDTPt is requesting a refill on [place]. Please call pt once this i s completed documented in thi s encounter Plan of Treatment Not on filedocumented as of this encounter Visit Diagnoses Not on filedocumented in this encounter"
--- OUTSIDE RECORDS SUMMARY | ~2020-07-19 | XMS | Encounter Summary ---
Demographics + + + | Address | [address] | | | [place] [address] | + + + | Home Phone [...] + + + | Author | [facility] | + + + | Organization | [facility] [facility] | + [...] Team Providers + +------+ + | Care Military Exchange Wireless Manager Name | Role | Phone | [...] | | | [facility] | [place], [place] | | | | | Health and Healing, | [address] | | | | | Building 1, 8th | [phone] | | | | | floor [place], [place] | | | | | | [address] | | | | | | [phone] | | | +--------+ + + + [...]
--- OUTSIDE RECORDS SUMMARY | ~2020-07-19 | XMS | Encounter Summary ---
Demographics + + + | Address | [address] | | | [place] [address] | + + + | Home Phone [...] + | Author | [facility] [email or web address] [facility] | + + + | Organization | [facility] [employer] [facility] | + [...] Team Providers + +------+ + | Care Psych Therapist Name | Role | Phone | [...] Refill Request | | 2007 | | [facility] | [facility] | | | | | and Healing [address] | Neurosurgery [address] | | | | | [address] [facility] | [address] | | | | | Health and Healing, | [place], [place] | | | | | Building | [address] | | | | | Floor [place], [place] | | | | | | [address] | | | | | | [phone] | | | +--------+--------+ + + + [...]
--- OUTSIDE RECORDS SUMMARY | ~2020-07-19 | XMS | Encounter Summary ---
Demographics + + + | Address | [address] | | | [place] [address] | + + + | Home Phone [...] Author | [facility] | + + + | Organization | [facility] [employer] [facility] [...] Team Providers + +------+ + | Care Insulator Helper Name | Role | Phone | [...] Cerebri | | 2006 | Visit | [place] | | (Primary Dx) | | | | Neuro-Ophthalmology | | | | | | [address] [facility] | | | | | | Mailcode: PATTI | | | | | | [place] [address] | | | | | | [phone] | | | +--------+---------+ + + + [...] Brad Currie MD Neuro-Ophthalmology and Cerebrovascular Disease Drug Purchaser of Ophthalmology, Neurology, and Neurosurgery documented in [...]
--- OUTSIDE RECORDS SUMMARY | ~2020-07-19 | XMS | Encounter Summary ---
Demographics + + + | Address | [address] | | | [place] [address] | + + + | Home Phone [...] Author | [facility] | + + + | Organization | [facility] | + [...] Providers + +------+ + | Care Manager Icu Name | Role | Phone | + +------+ + | Brenden Benavides MD | PCP | | + +------+ + Encounter Details +--------+ + + + + | Date | Type | Department | Care Team | Description | +--------+ + + + + | 09/28/ | Documentati | [facility] | Brad Currie MD | | | 2006 | on | [place] | | | | | | Neuro-Ophthalmology | | | | | | [address] | | | | | | Mailcode: PATTI | | | | | | [place] [address] | | | | | | [phone] | | | +--------+ + + + [...] Brad Currie MD Neuro-Ophthalmology and Cerebrovascular Disease [employer] Consultant of Ophthalmology, Neurology, and Neurosurgery documented in this encounter Plan of Treatment Not on filedocumented as of this encounter Visit Diagnoses Not on filedocumented in this encounter"
--- OUTSIDE RECORDS SUMMARY | ~2020-07-19 | XMS | Encounter Summary ---
Demographics + + + | Address | [address] | | | [place] [address] | + + + | Home Phone [...] + | Organization | [facility] | [...] Team Providers + +------+ + | Care Elementary Supervisor Name | Role | Phone | + +------+ + PCP | Unavailable | + +------+ + Encounter Details +--------+ + + + + | Date | Type | Department | Care Team | Description | +--------+ + + + + | 09/03/ | Hospital | [facility] | | | | 1991 | Encounter | MED CTR WOMENS | | | | | | HEALTH SVCS [address] | | | | | | [place], | | | | | | [place] [address] | | | | | | [phone] | | | +--------+ + + + [...]
--- OUTSIDE RECORDS SUMMARY | ~2020-07-19 | XMS | Encounter Summary ---
Demographics + + + | Address | [address] | | | [place] [address] | + + + | Home Phone [...] [facility] [employer] [facility] | + + + | Organization | [facility] [employer] [facility] [...] Team Providers + +------+ + | Care Lobby Concierge Name | Role | Phone | + [...] Care Coordination | | 2018 | | [place] | [address] | | | | | Neuro-Ophthalmology | [place], [place] | | | | | at [facility] [address] | [address] | | | | | Ave [facility] | [phone] | | | | | [place], | | | | | | [facility] | | | | | | [place], [place] | | | | | | [address] | | | | | | [phone] | | | +--------+ + + + [...] bad as it is now. Lives in [place], and says there is limite d access [...] She also lives about 40 minutes from [place]. She wo uld like to go there. [...]
--- OUTSIDE RECORDS SUMMARY | ~2020-07-19 | XMS | Encounter Summary ---
Demographics + + + | Address | [address] | | | [place] [address] | + + + | Home Phone [...] + + | Author | [facility] | + + + | Organization | [facility] [employer] [facility] | + [...] Team Providers + +------+ + | Care Title Department Manager Name | Role | Phone | + +------+ + | Brenden Benavides MD | PCP | | + +------+ + Encounter Details +--------+ + + + + | Date | Type | Department | Care Team | Description | +--------+ + + + + | 01/05/ | Telephone | [facility] | Brad Currie MD | | | 2006 | | [place] | | | | | | Neuro-Ophthalmology | | | | | | [address] [facility] | | | | | | Mailcode: PATTI | | | | | | [place] [address] | | | | | | [phone] | | | +--------+ + + + [...] 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 I apologized and informed her that we [...]
--- OUTSIDE RECORDS SUMMARY | ~2020-07-19 | XMS | Encounter Summary ---
Demographics + + + | Address | [address] | | | [place] [address] | + + + | Home Phone [...] Providers + +------+ + | Care Boom Truck Driver Name | Role | Phone | + +------+ + PCP | Unavailable | + +------+ + Encounter Details +--------+ + + + + | Date | Type | Department | Care Team | Description | +--------+ + + + + | 06/19/ | Hospital | [facility] | | | | 1991 | Encounter | MED CTR WOMENS | | | | | | HEALTH SVCS [address] | | | | | | [place], | | | | | | [place] [address] | | | | | | [phone] | | | +--------+ + + + [...]
--- OUTSIDE RECORDS SUMMARY | ~2020-07-19 | XMS | Encounter Summary ---
Demographics + + + | Address | [address] | | | [place] [address] | + + + | Home Phone [...] Providers + +------+ + | Care Beauty Advisor Name | Role | Phone | + +------+ + PCP | Unavailable | + +------+ + Encounter Details +--------+ + + + + | Date | Type | Department | Care Team | Description | +--------+ + + + + | 04/21/ | Hospital | [facility] | | | | 1995 | Encounter | MED CTR EMERGENCY | | | | | | CENTER [address] | | | | | | [place] | | | | | | [address] | | | | | | [phone] | | | +--------+ + + + [...]
--- OUTSIDE RECORDS SUMMARY | ~2020-07-19 | XMS | Encounter Summary ---
Demographics + + + | Address | [address] | | | [place] [address] | + + + | Home Phone [...] [facility] [employer] [facility] | + + + | Organization | Counts Include [facility] [employer] [facility] [...] Providers + +------+ + | Care Heavy Truck Driver Name | Role | Phone | + +------+ + | Dennis Maddox | PCP | | + +------+ + Encounter Details +--------+ + + + + | Date | Type | Department | Care Team | Description | +--------+ + + + + | 03/15/ | Telephone | [facility] | Ronaldo Martin MD | | | 2012 | | Benavides/Ophthalmol | [facility] [place] | | | | | ogjaneen at [facility] [address] | [address] [place] [address] | | | | | [address] | [place] [address] | | | | | Health and Healing, | [phone] | | | | | [facility] | | | | | | Floor [place], [place] | | | | | | [address] | | | | | | [phone] | | | +--------+ + + + [...]
--- OUTSIDE RECORDS SUMMARY | ~2020-07-19 | XMS | Encounter Summary ---
Demographics + + + | Address | [address] | | | [place] [address] | + + + | Home Phone [...] Team Providers + +------+ + | Care Hearth Feeder Name | Role | Phone | + +------+ + PCP | Unavailable | + +------+ + Encounter Details +--------+ + + + + | Date | Type | Department | Care Team | Description | +--------+ + + + + | 10/29/ | Hospital | [facility] | | | | 1991 | Encounter | MED CTR EMERGENCY | | | | | | CENTER [address] | | | | | | [place] | | | | | | [address] | | | | | | [phone] | | | +--------+ + + + [...]
--- OUTSIDE RECORDS SUMMARY | ~2020-07-19 | XMS | Encounter Summary ---
Demographics + + + | Address | [address] | | | [place] [address] | + + + | Home Phone [...] Providers + +------+ + | Care Oil Spot Washer Name | Role | Phone | + +------+ + PCP | Unavailable | + +------+ + Encounter Details +--------+ + + + + | Date | Type | Department | Care Team | Description | +--------+ + + + + | 04/24/ | Hospital | [facility] | | | | 2005 | Encounter | MED CTR EMERGENCY | | | | | | CENTER [address] | | | | | | [place] | | | | | | [address] | | | | | | [phone] | | | +--------+ + + + [...]
--- OUTSIDE RECORDS SUMMARY | ~2020-07-19 | XMS | Encounter Summary ---
Demographics + + + | Address | [address] | | | [place] [address] | + + + | Home Phone [...] Team Providers + +------+ + | Care Hammerer Helper Name | Role | Phone | + +------+ + PCP | Unavailable | + +------+ + Encounter Details +--------+ + + + + | Date | Type | Department | Care Team | Description | +--------+ + + + + | 08/03/ | Hospital | [facility] | | | | 1990 | Encounter | MED CTR EMERGENCY | | | | | | CENTER [address] | | | | | | [place] | | | | | | [address] | | | | | | [phone] | | | +--------+ + + + [...]
--- OUTSIDE RECORDS SUMMARY | ~2020-07-19 | XMS | Encounter Summary ---
Demographics + + + | Address | [address] | | | [place] [address] | + + + | Home Phone [...] Providers + +------+ + | Care Cargo Broker Name | Role | Phone | [...] | | | [address] | | | | | [place], [place] | [place] [address] | | | | | [address] | | | | | | [phone] | | | +--------+ + + + [...]
--- OUTSIDE RECORDS SUMMARY | ~2020-07-19 | XMS | Encounter Summary ---
Demographics + + + | Address | [address] | | | [place] [address] | + + + | Home Phone [...] + | Author | [facility] | + + + | Organization | [facility] [employer] [facility] | + + [...] Providers + +------+ + | Care Fish And Wildlife Scientific Aid Name | Role | Phone | [...] | Headache | | 2015 | | [place] | MD [address] | | | | | Neuro-Ophthalmology | [facility] [place] | | | | | at [facility] [address] | [address] | | | | | [address] [facility] | [phone] | | | | | Heatlh and Healing, | | | | | | [facility] | | | | | | Floor [place], [place] | | | | | | [address] | | | | | | [phone] | | | +--------+ + + + [...] to do. She agreed. She lives in [place] and wi ll head to ER close [...]
--- OUTSIDE RECORDS SUMMARY | ~2020-07-19 | XMS | Encounter Summary ---
Demographics + + + | Address | [address] | | | [place] [address] | + + + | Home Phone [...] [facility] [employer] [facility] | + + + | Organization | [facility] [employer] [facility] | [...] Providers + +------+ + | Care International Student Advisor Name | Role | Phone | [...] | | | | | | [address] [place], [place] | | | | | | [address] | | | | | | [phone] | | | +--------+ + + + [...]
--- OUTSIDE RECORDS SUMMARY | ~2020-07-19 | XMS | Encounter Summary ---
Demographics + + + | Address | [address] | | | [place] [address] | + + + | Home Phone [...] Team Providers + +------+ + | Care Mothers Helper Name | Role | Phone | + +------+ + PCP | Unavailable | + +------+ + Encounter Details +--------+ + + + + | Date | Type | Department | Care Team | Description | +--------+ + + + + | 04/18/ | Hospital | [facility] | | | | 1991 | Encounter | MED CTR EMERGENCY | | | | | | CENTER [address] | | | | | | [place] | | | | | | [address] | | | | | | [phone] | | | +--------+ + + + [...]
--- OUTSIDE RECORDS SUMMARY | ~2020-07-19 | XMS | Encounter Summary ---
Demographics + + + | Address | [address] | | | [place] [address] | + + + | Home Phone [...] + + | Author | [facility] [employer] [facility] | + + + | Organization | [facility] [employer] [facility] | + + + | Address | Unknown | + + + | Phone | Unavailable | + + + Support + + +---------+ + | Name | Relationship | Address | Phone | + + +---------+ + | Ruby Au | ECON | Unknown | | + + +---------+ + Care Team Providers + +------+ + | Care Monkey Breeder Name | Role | Phone | + [...] | | | [address] Mailcode: [id number] | [place], [place] | | | | | [place], [place] | [address] | | | | | [address] | [phone] | | | | | [phone] | | | +--------+ + + + [...]
--- OUTSIDE RECORDS SUMMARY | ~2020-07-19 | XMS | Encounter Summary ---
Demographics + + + | Address | [address] | | | [place] [address] | + + + | Home Phone [...] Providers + +------+ + | Care Direct Support Staff Member Name | Role | Phone | + +------+ + PCP | Unavailable | + +------+ + Encounter Details +--------+ + + + + | Date | Type | Department | Care Team | Description | +--------+ + + + + | 07/14/ | Hospital | [facility] | | | | 1998 | Encounter | MED CTR EMERGENCY | | | | | | CENTER [address] | | | | | | [place] | | | | | | [address] | | | | | | [phone] | | | +--------+ + + + [...]
--- OUTSIDE RECORDS SUMMARY | ~2020-07-19 | XMS | Encounter Summary ---
Demographics + + + | Address | [address] | | | [place] [address] | + + + | Home Phone [...] Team Providers + +------+ + | Care Dye Padder Operator Name | Role | Phone | + +------+ + PCP | Unavailable | + +------+ + Encounter Details +--------+ + + + + | Date | Type | Department | Care Team | Description | +--------+ + + + + | 07/30/ | Hospital | [facility] | | | | 2008 - | Encounter | MED CTR MED ONC | | | | | | [address] [place] | | | | 08/02/ | | [place] [address] | | | | 2008 | | [phone] | | | +--------+ + + + [...]
--- OUTSIDE RECORDS SUMMARY | ~2020-07-19 | XMS | Encounter Summary ---
Demographics + + + | Address | [address] | | | [place] [address] | + + + | Home Phone [...] + | Author | [facility] | + + + | Organization | [facility] [employer] [facility] | + [...] + +------+ + | Care Fire Extinguisher Repairer Name | Role | Phone | [...] Cerebri | | 2007 | Visit | [place] | | | | | | Photography at | | | | | | [facility] [address] | | | | | [address] | | | | | | Eye [place], [address]th | | | | | | floor [place], [place] | | | | | | [address] | | | +--------+---------+ + + + [...] Pangjulisa was seen in the [facility] [place] Photography/Ultrasound Department today, 11/30/2006, for ultrasound OU [...]
--- OUTSIDE RECORDS SUMMARY | ~2020-07-19 | XMS | Encounter Summary ---
Demographics + + + | Address | [address] | | | [place] [address] | + + + | Home Phone [...] + + | Author | [facility] [facility] | + + + | Organization | [facility] [employer] [facility] [...] Providers + +------+ + | Care Assembler Handbags Name | Role | Phone | + [...] | | | Ave Center for | [place], [place] | | | | | Health and Healing, | [address] | | | | | Building | [phone] | | | | | floor [place], [place] | | | | | | [address] | | | | | | [phone] | | | +--------+ + + + [...] Kiki Rosen PA - 12/24/2008 3:02 PM [employer] company says to try again later. No [...]
--- OUTSIDE RECORDS SUMMARY | ~2020-07-19 | XMS | Encounter Summary ---
Demographics + + + | Address | [address] | | | [place] [address] | + + + | Home Phone [...] Author | [facility] [facility] | + + + | Organization | [facility] [employer] [facility] [...] Team Providers + +------+ + | Care Multimedia Technician Name | Role | Phone | [...] Ave | | | | | Ave [facility] | [place], [place] | | | | | Health and Healing, | [address] | | | | | [facility] | [phone] | | | | | floor [place], [place] | | | | | | [address] | | | | | | [phone] | | | +--------+ + + + [...]
--- OUTSIDE RECORDS SUMMARY | ~2020-07-19 | XMS | Encounter Summary ---
Demographics + + + | Address | [address] | | | [place] [address] | + + + | Home Phone [...] Author | [facility] [facility] | + + + | Organization | [facility] Origin Digital Science [facility] [...] Providers + +------+ + | Care Billing Specialist Name | Role | Phone [...] Flores | | | | | | [facility] | | | | | | [place], [place] | | | | | | [address] | | | | | | [phone] | | | +--------+ + + + [...] AM PDTdocumented in this encounter Miscellaneous Notes [facility] Cindy Polo - 03/09/2013 1:20 PM [...] her shunt is actually malfuctioning. HOLD [facility] Macy Jacques - 03/09/2013 1:17 PM PDTPatient was supposed to be ED referral, now is being admitt ed at [facility], Dr. Cooney calling for consult, possible transfer. Paged Dr. Pedroza. El ectronically signed by Macy Jacques at 03/09/2013 1:18 PM PDTRe[facility] - Maryellen Mathew - 03/09/2013 11:[address] Veras, 37 yo f , second hand to Dr Holland from [facility], document ed in this encounter Plan of Treatment Not on filedocumented as of this encounter Visit Diagnoses Not on filedocumented in this encounter"
--- OUTSIDE RECORDS SUMMARY | ~2020-07-19 | XMS | Encounter Summary ---
Demographics + + + | Address | [address] | | | [place] [address] | + + + | Home Phone [...] | Author | [facility] [employer] [facility] | + + + | Organization | [facility] MapSense Science [facility] | + [...] Providers + +------+ + | Care Title One Kindergarten Teacher Name | Role | Phone | [...] | | 2012 | anned | [address] [facility] | | | | | | [address] | | | | | | [place], [place] | | | | | | [address] | | | +--------+ + + + [...]
--- OUTSIDE RECORDS SUMMARY | ~2020-07-19 | XMS | Encounter Summary ---
Demographics + + + | Address | [address] | | | [place] [address] | + + + | Home Phone [...] + | Author | [facility] | + + + | Organization | [facility] Second Sight [facility] | + [...] Providers + +------+ + | Care Animal Care Supervisor Name | Role | Phone | + +------+ + | Brenden Benavides MD | PCP | | + +------+ + Encounter Details +--------+ + + + + | Date | Type | Department | Care Team | Description | +--------+ + + + + | 01/05/ | Telephone | [facility] | Brad Currie MD | | | 2006 | | [place] | | | | | | Neuro-Ophthalmology | | | | | | [address] [facility] | | | | | | Mailcode: PATTI | | | | | | [place] [address] | | | | | | [phone] | | | +--------+ + + + [...] 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 I apologized and informed her that we [...]
--- OUTSIDE RECORDS SUMMARY | ~2020-07-19 | XMS | Encounter Summary ---
Demographics + + + | Address | [address] | | | [place] [address] | + + + | Home Phone [...] Author | [facility] | + + + | Organization | [facility] aXess america [facility] | + + [...] Providers + +------+ + | Care Granite Cutter Name | Role | Phone | + +------+ + | Dennis Maddox | PCP | | + +------+ + Encounter Details +--------+ + + + + | Date | Type | Department | Care Team | Description | +--------+ + + + + | 03/15/ | Telephone | [facility] | Ronaldo Martin MD | | | 2012 | | [place]/Ophthalmol | [facility] | | | | | ogjaneen at [facility] [address] | [address] [place] [address] | | | | | [facility] | [place] [address] | | | | | Health and Healing, | [phone] | | | | | [facility] | | | | | | Floor [place], [place] | | | | | | [address] | | | | | | [phone] | | | +--------+ + + + [...]
--- OUTSIDE RECORDS SUMMARY | ~2020-07-19 | XMS | Encounter Summary ---
Demographics + + + | Address | [address] | | | [place] [address] | + + + | Home Phone [...] Author | [facility] | + + + | Organization | [facility]o [facility] | + + [...] Providers + +------+ + | Care 3D Modeler Name | Role | Phone | [...] Refill Request | | 2006 | | [place] | [facility] | | | | | Oculoplastics at | Rd [place], [place] | | | | | [facility] [address] | [address] | | | | | [address] | | | | | | Eye [place] | | | | | | [address] | | | | | | [place] [address] | | | | | | [phone] | | | +--------+ + + + [...] to be seen here or by an dental billing specialist in [place], but she says she does not have transportation. I will call in Vicodin #20, pt to call immediately if there is any worsening. Called in Vicodin #20 to [place] [facility] 07 8:32 AM PDTdocumented in this encounter Plan of Treatment Not on filedocumented as of this encounter Visit Diagnoses Not on filedocumented in this encounter"
--- OUTSIDE RECORDS SUMMARY | ~2020-07-19 | XMS | Encounter Summary ---
Demographics + + + | Address | [address] | | | [place] [address] | + + + | Home Phone [...] Author | [facility] | + + + | Organization | [facility] Track the Bet Science [facility] [...] Providers + +------+ + | Care Independent Trader Name | Role | Phone | + +------+ + | Pedro Luis Sams MD | PCP | | + +------+ + Encounter Details +--------+ + + + + | Date | Type | Department | Care Team | Description | +--------+ + + + + | 02/19/ | Document-Sc | UNKNOWN DEPARTMENT | Unknown . | | | 2012 | anned | [address] [facility] | | | | | | [address] | | | | | | [place], [place] | | | | | | [address] | | | +--------+ + + + [...]
--- OUTSIDE RECORDS SUMMARY | ~2020-07-19 | XMS | Encounter Summary ---
Demographics + + + | Address | [address] | | | [place] [address] | + + + | Home Phone [...] Team Providers + +------+ + | Care Stitcher Set Up Operator Automatic Name | Role | Phone | + +------+ + PCP | Unavailable | + +------+ + Encounter Details +--------+ + + + + | Date | Type | Department | Care Team | Description | +--------+ + + + + | 05/15/ | Hospital | [facility] | | | | 1991 | Encounter | MED CTR XRAY [address] | | | | | | [place] | | | | | | [place] [address] | | | | | | [phone] | | | +--------+ + + + [...]
--- OUTSIDE RECORDS SUMMARY | ~2020-07-19 | XMS | Encounter Summary ---
Demographics + + + | Address | [address] | | | [place] [address] | + + + | Home Phone [...] Providers + +------+ + | Care Nuclear Physicist Name | Role | Phone | + +------+ + PCP | Unavailable | + +------+ + Encounter Details +--------+ + + + + | Date | Type | Department | Care Team | Description | +--------+ + + + + | 10/02/ | Hospital | [facility] | | | | 1991 | Encounter | MED CTR WOMENS | | | | | | HEALTH [facility]CS [address] | | | | | | [place], | | | | | | [place] [address] | | | | | | [phone] | | | +--------+ + + + [...]
--- OUTSIDE RECORDS SUMMARY | ~2020-07-19 | XMS | Encounter Summary ---
Demographics + + + | Address | [address] | | | [place] [address] | + + + | Home Phone [...] Author | [facility] [employer] [facility] | + + + | Organization | [facility] Partnerpedia Science [facility] [...] Team Providers + +------+ + | Care Orthoptist Name | Role | Phone | [...] [place] | | | | | | [facility] | | | | | | Health and Healing, | | | | | | Building | | | | | | floor [place], [place] | | | | | | [address] | | | | | | [phone] | | | +--------+ + + + [...]
--- OUTSIDE RECORDS SUMMARY | ~2020-07-19 | XMS | Encounter Summary ---
Demographics + + + | Address | [address] | | | [place] [address] | + + + | Home Phone [...] Author | [facility] [employer] [facility] | + + + | Organization | [facility] Deligic Science [facility] | + [...] Team Providers + +------+ + | Care Per Assessment Nurse Name | Role | Phone | [...] | | [place] Mailcode:OP14B | Sandra Maloney [place], | | | | | [facility] | [place] [address] | | | | | [place], [place] | | | | | | [address] | | | | | | [phone] | | | +--------+ + + + [...] note in you r In Basket in [place]. Annabella's # is [phone]. documented in this encounter Plan of Treatment Not on filedocumented as of this encounter Visit Diagnoses Not on filedocumented in this encounter"
--- OUTSIDE RECORDS SUMMARY | ~2020-07-19 | XMS | Encounter Summary ---
Demographics + + + | Address | [address] | | | [place] [address] | + + + | Home Phone [...] | Author | [facility] [facility] | + + + | Organization | [facility] Price Ignite Systems Science [facility] | + [...] Providers + +------+ + | Care Press Writer Name | Role | Phone | [...] | | Ave [facility] | [place], [place] | | | | | Health and Healing, | [address] | | | | | [facility] | [phone] | | | | | floor [place], [place] | | | | | | [address] | | | | | | [phone] | | | +--------+ + + + [...] ref[facility] of Xanax 1mg [facility] [phone] signed by Monica sykes at 05/01/2008 2:11 PM PDTdocumented in this encounter Plan of Treatment Not on filedocumented as of this encounter Visit Diagnoses Not on filedocumented in this encounter"
--- OUTSIDE RECORDS SUMMARY | ~2020-07-19 | XMS | Encounter Summary ---
Demographics + + + | Address | [address] | | | [place] [address] | + + + | Home Phone [...] + | Author | [facility] | + + + | Organization | [facility] ImageSpike [employer] [facility] | + [...] Team Providers + +------+ + | Care Proj Engineer Name | Role | Phone | [...] Cerebri | | 2006 | Visit | Vendor Retina at | Bud Alexander MD [address] | (Primary Dx) | | | | [facility] [address] | [place] | | | | | [address] | [place], [place] | | | | | Eye Vendor, [facility] | [address] | | | | | [place], [place] | [phone] | | | | | [address] | [...]
--- OUTSIDE RECORDS SUMMARY | ~2020-07-19 | XMS | Encounter Summary ---
Demographics + + + | Address | [address] | | | [place] [address] | + + + | Home Phone [...] + + | Author | [facility] | + + + | Organization | [facility] Dac[employer] [facility] [...] Team Providers + +------+ + | Care Multicultural Services Librarian Name | Role | Phone | + +------+ + | Brenden Benavides MD | PCP | | + +------+ + Encounter Details +--------+ + + + + | Date | Type | Department | Care Team | Description | +--------+ + + + + | 02/21/ | Telephone | [facility] | Pascual B[address] | | | 2006 | | [place] | [address] | | | | | Oculoplastics at | [facility], [place] | | | | | Maicol Perez [address] | [address] | | | | | [address] | | | | | | Eye [place] | | | | | | [facility], 5th floor | | | | | | [place] [address] | | | | | | [phone] | | | +--------+ + + + [...] the Vicodin prescription to the pharmacist in [place], he asked me if I was calling [...]
--- OUTSIDE RECORDS SUMMARY | ~2020-07-19 | XMS | Encounter Summary ---
Demographics + + + | Address | [address] | | | [place] [address] | + + + | Home Phone [...] Team Providers + +------+ + | Care Liquor Tester Name | Role | Phone | + +------+ + PCP | Unavailable | + +------+ + Encounter Details +--------+ + + + + | Date | Type | Department | Care Team | Description | +--------+ + + + + | 05/18/ | Hospital | [facility] | | | | 1991 | Encounter | MED CTR WOMENS | | | | | | HEALTH [facility] [address] | | | | | | [place], | | | | | | [place] [address] | | | | | | [phone] | | | +--------+ + + + [...]
--- OUTSIDE RECORDS SUMMARY | ~2020-07-19 | XMS | Encounter Summary ---
Demographics + + + | Address | [address] | | | [place] [address] | + + + | Home Phone [...] + + | Author | [facility] | + + + | Organization | [facility] [...] Team Providers + +------+ + | Care Tower Hand Name | Role | Phone | [...] Erroneous Encounter | | 2007 | | [place] [facility] | [facility] | - Disregard | | | | and Healing [address] | Neurosurgery [address] | | | | | [address] [facility] | [address] | | | | | Health and Healing, | [place], [place] | | | | | [facility] | [address] | | | | | Floor [place], [place] | | | | | | [address] | | | | | | [phone] | | | +--------+ + + + [...] - Kiki Rosen - 08/14/2008 8:07 PM [id number] Nessa berman signed by Kiki Rosen at 08/14/2008 8:07 PM PDTdocumented in this encounter Plan of Treatment Not on filedocumented as of this encounter Visit Diagnoses Not on filedocumented in this encounter"
--- OUTSIDE RECORDS SUMMARY | ~2020-07-19 | XMS | Encounter Summary ---
Demographics + + + | Address | [address] | | | [place] [address] | + + + | Home Phone [...] Providers + +------+ + | Care Wool Grower Name | Role | Phone | [...] | | | | EMERGENCY CENTER | [place], [place] | | | | | [address] | [address] | | | | | [place], [place] | [phone] | | | | | [address] | | | | | | [phone] | | | +--------+ + + + [...] 03/03/132032 Date of Service: 03/03/132032 Status: Signed Customer Response Representative: Jovanny Collado RN (Registered Nurse) Dr. Reyes @ BS Jovanny Collado RN 03/03/132032 onver ludwin Transaction, Provider Unknown - 03/03/2013 6:56 PM PDT ED Notes by Jovanny Collado RN at 03/03/131855 Author: Jovanny Collado RN Service: (none) Author Type: Registered Nurse Filed: 03/03/131855 Date of Service: 03/03/131855 Status: Signed Customer Response Representative: Jovanny Collado RN (Registered Nurse) Dr. Reyes @ BS Jovanny Collado RN 03/03/131855 rtis Reyes DO - 03/03/2013 6:55 PM PDTFormatting of this note might be different from the or iginal. ED Provider Notes by Artis Reyes DO at 03/03/131854 Author: Artis Reyes DO Service: (none) Author Type: Physician Filed: 03/04/13 223 Date of Service: 03/03/131854 Status: Signed Customer Response Representative: Arits Reyes DO (Physician) [facility] Department of Emergency Medicine 6:55 PM History [...] ncludes; cholecystectomy, appendectomy, and one . [facility] Past Medical History Diagnosis Date Diabetes [...] sore throat CV/Resp: Negative for chest pain, psgarprtr-zz-voeofz, cough GI: Negative for diarrhea Positive for [...] plan. Records Reviewed Nursing notes. No previous [facility] ED visits available in [facility] for review. Laboratory Evaluation Results Procedure Component Value Ref Range Date/Time Comprehensive metabolic panel [[id number]] (Abnormal) Collected:03/03/131922 Order Status:Completed Updated:03/03/131953 Specimen Information:Blood [...] 65 U/L EGFR >60 >60 mL/min/1.73m2 Lipase [[id number]] Collected:03/03/131922 Order Status:Completed Updated:03/03/131953 Specimen Information:Blood LIPASE 177 73 - 393 U/L Urine test (LAB) [[id number]] Collected:03/03/131939 Order Status:Completed Updated:03/03/131950 Specimen Information:Urine Preg Test, Ur NEGATIVE POC clinitek 10 [[id number]] (Abnormal) Collected:03/03/131940 Order Status:Completed Updated:03/03/131943 Color, UA [...] WBC, UA NEGATIVE NEGATIVE CBC with differential [[id number]] Collected:03/03/131922 Order Status:Completed Updated:03/03/131935 Specimen Information:Blood WBC [...] Follow up With Details Comments Contact Info [facility] As needed [address] [facility] [address] [facility] If symptoms worsen [address] [facility] [address] Discharge Medications: New Prescriptions DICYCLOMINE (BENTYL) 20 [...]
--- OUTSIDE RECORDS SUMMARY | ~2020-07-19 | XMS | Encounter Summary ---
Demographics + + + | Address | [address] | | | [place] [address] | + + + | Home Phone [...] Providers + +------+ + | Care Blow Mold Technician Name | Role | Phone | + +------+ + PCP | Unavailable | + +------+ + Encounter Details +--------+ + + + + | Date | Type | Department | Care Team | Description | +--------+ + + + + | 01/01/ | Hospital | [facility] | [place] | | | 2009 | Encounter | MED CTR EMERGENCY | Brad Yu MD [address] | | | | | [place] [address] | [facility] | | | | | [place] | [place] [address] | | | | | [address] | [phone] | | | | | [phone] | | | +--------+ + + + [...]
--- OUTSIDE RECORDS SUMMARY | ~2020-07-19 | XMS | Encounter Summary ---
Demographics + + + | Address | [address] | | | [place] [address] | + + + | Home Phone [...] Author | [facility] | + + + | Organization | [facility] WDFA Marketing [facility] | [...] Providers + +------+ + | Care Airplane Designer Name | Role | Phone | [...] | | | | | Physician's | [place], [place] | | | | | [place], 2nd floor | [address] | | | | | [place], [place] | [phone] | | | | | [address] | | | | | | [phone] | | | +--------+ + + + [...]
--- OUTSIDE RECORDS SUMMARY | ~2020-07-19 | XMS | Encounter Summary ---
Demographics + + + | Address | [address] | | | [place] [address] | + + + | Home Phone [...] | Author | [facility] | + + + | Organization | [facility] [employer] [facility] | + [...] Team Providers + +------+ + | Care Echocardiography Radiology Technologist Name | Role | Phone | [...] incision site) | | | | [facility] | [place], [place] | | | | | Health and Healing, | [address] | | | | | | [phone] | | | | | floor [place], [place] | | | | | | [address] | | | | | | [phone] | | | +--------+ + + + [...]
--- OUTSIDE RECORDS SUMMARY | ~2020-07-19 | XMS | Encounter Summary ---
Demographics + + + | Address | [address] | | | [place] [address] | + + + | Home Phone [...] Providers + +------+ + | Care Material Handler Name | Role | Phone | + +------+ + PCP | Unavailable | + +------+ + Encounter Details +--------+ + + + + | Date | Type | Department | Care Team | Description | +--------+ + + + + | 09/30/ | Hospital | [facility] | | | | 1991 | Encounter | MED CTR WOMENS | | | | | | HEALTH [facility] [address] | | | | | | [place], | | | | | | [place] [address] | | | | | | [phone] | | | +--------+ + + + [...]
--- OUTSIDE RECORDS SUMMARY | ~2020-07-19 | XMS | Encounter Summary ---
Demographics + + + | Address | [address] | | | [place] [address] | + + + | Home Phone [...] [facility] [employer] [facility] | + + + | Organization | [facility] [employer] [facility] | + [...] Team Providers + +------+ + | Care Hassock Maker Name | Role | Phone | [...] Letter From | | 2007 | | [place] [facility] | [address] | Specialist | | | | and Healing [address] | [place], [place] | | | | | [address] [facility] | [address] | | | | | Health and Healing, | [phone] | | | | | | | | | | | Floor [place], [place] | | | | | | [address] | | | | | | [phone] | | | +--------+ + + + [...] cerbral angiogram on 05/07/08. Her Employer is [employer]. Please fax letter to: Michael Nivtvjdsgxzkut signed by Delma Cadet at 05/09/2008 9:34 AM PDTTelephone Encounter - David Frausto - 05/09/2008 9:23 AM PDTOpened in error documented in this encounter Plan of Treatment Not on filedocumented as of this encounter Visit Diagnoses Not on filedocumented in this encounter"
--- OUTSIDE RECORDS SUMMARY | ~2020-07-19 | XMS | Encounter Summary ---
Demographics + + + | Address | [address] | | | [place] [address] | + + + | Home Phone [...] Author | [facility] [employer] [facility] | + + + | Organization | [facility] Apprema Science [facility] [...] Providers + +------+ + | Care Table Maker Name | Role | Phone | [...] Request (Pt | | 2006 | | [place] | DANIELITO Hammer | requests more pain | | | | Oculoplastics at | [place], [place] | medication) | | | | [address] | [address] | | | | | [address] | [phone] | | | | | Eye [place] | | | | | | [facility], [address] [place] [address] | | | | | | [place] [address] | | | | | | [phone] | | | +--------+--------+ + + + [...]
--- OUTSIDE RECORDS SUMMARY | ~2020-07-19 | XMS | Encounter Summary ---
Demographics + + + | Address | [address] | | | [place] [address] | + + + | Home Phone [...] | Author | [facility] [employer] [facility] | + + + | Organization | [facility] TRAN.SL Science [facility] [...] Team Providers + +------+ + | Care Template Checker Name | Role | Phone | [...] [place] | | | | | | [facility] for | | | | | | Health and Healing, | | | | | | Building | | | | | | floor [place], [place] | | | | | | [address] | | | | | | [phone] | | | +--------+ + + + [...] she was supposed to go to the [facility] ED for a dislodged LPS and [...] if she s able to get to [facility]. Because she inquired, I made clear we cannot help her tra nsport here or evaluate her over the phone. She states she didn t make her Tuesday appt as she had what sounds to be an upper endoscopy to eval for H pylori and the doctor who did th at kept her overnight. She also states she will try to get to [facility] near here. documented i n this encounter Plan of Treatment Not on filedocumented as of this encounter Visit Diagnoses Not on filedocumented in this encounter"
--- OUTSIDE RECORDS SUMMARY | ~2020-07-19 | XMS | Encounter Summary ---
Demographics + + + | Address | [address] | | | [place] [address] | + + + | Home Phone [...] | Author | [facility] | + + + | Organization | [facility] [employer] [facility] [...] Providers + +------+ + | Care Clinical Fellow Name | Role | Phone | [...] Cerebri | | 2006 | Visit | [place] | | (Primary Dx) | | | | Neuro-Ophthalmology | | | | | | [address] [facility] | | | | | | Mailcode: PATTI | | | | | | [place] [address] | | | | | | [phone] | | | +--------+---------+ + + + [...] Brad Currie MD Neuro-Ophthalmology and Cerebrovascular Disease Transportation Coordinator of Ophthalmology, Neurology, and Neurosurgery documented in [...]
--- OUTSIDE RECORDS SUMMARY | ~2020-07-19 | XMS | Encounter Summary ---
Demographics + + + | Address | [address] | | | [place] [address] | + + + | Home Phone [...] Providers + +------+ + | Care Communications Executive Name | Role | Phone | [...] | | | EMERGENCY CENTER | [place] [address] | | | | | [address] | [phone] | | | | | [place] | | | | | | [address] | | | | | | [phone] | | | +--------+ + + + [...] of this encounter ED Notes Maryellen Ramos, PRINT PRESS OPERATOR - 10/03/2013 12:05 AM [facility] PATIENT NAME: ANNABELLA STEWART TREATMENT DATE: 07/17/2011 ADMISSION DATE: 07/17/2011 Age/Sex: 35Y / F : 1975 [id number] / [id number] CHIEF COMPLAINT: Anxiety. HISTORY OF PRESENT ILLNESS: [...] saturatio ns 95% on room air. INTEGUMENT: [place], warm and dry. No lesions, lacerations or abrasions. HEENT: Normocephalic, atraumatic. Pupils are equal, round, and reactive to light and accomm odation. EOMs are intact. MUSCULOSKELETAL: Moves all extremities well. HEART: Regular rate and rhythm. LUNGS: Clear. ABDOMEN: Benign. GENITOURINARY/RECTAL: Deferred. MINTHORN,S YLVIA S ADM:07/17/11 [id number] [facility] ER EMERGENCY DEPARTMENT RECORD [facility] JASPER Dorantes E-Sign: [facility] MD Lizeth Smith THIS REPORT IS CONFIDENTIAL AND NOT TO BE RELEASED WITHOUT PROPER AUTHORIZATION. [facility] NEUROLOGIC: Intact. PSYCHIATRIC: Calm and cooperative. EMERGENCY [...] help with sleep at night. Followup with [facility]. Return if symptoms worsen. Discharged stable. JASPER Mc MD [facility] #[id number] cc: MD Maryellen Parker ARNP Electronically Signed 07/20/11 0136 Domingo Darby MD MINTHORN,S ANGLEA S ADM:07/17/11 [id number] [facility] ER EMERGENCY DEPARTMENT RECORD [facility] JASPER Dorantes E-Sign: [facility] MD Lizeth Smith THIS REPORT IS CONFIDENTIAL AND NOT TO BE RELEASED WITHOUT PROPER AUTHORIZATION.Electronica lly signed by JASPER Mc at 10/03/2013 10:53 AM PSTdocumented in this encounter Plan of Treatment Not on filedocumented as of this encounter Visit Diagnoses Not on filedocumented in this encounter"
--- OUTSIDE RECORDS SUMMARY | ~2020-07-19 | XMS | Encounter Summary ---
Demographics + + + | Address | [address] | | | [place] [address] | + + + | Home Phone [...] Providers + +------+ + | Care Camera Systems Engineer Name | Role | Phone | + +------+ + PCP | Unavailable | + +------+ + Encounter Details +--------+ + + + + | Date | Type | Department | Care Team | Description | +--------+ + + + + | 08/16/ | Hospital | [facility] | | | | 1990 | Encounter | [facility] | | | | | | CENTER [address] | | | | | | [place] | | | | | | [address] | | | | | | [phone] | | | +--------+ + + + [...]
--- OUTSIDE RECORDS SUMMARY | ~2020-07-19 | XMS | Encounter Summary ---
Demographics + + + | Address | [address] | | | [place] [address] | + + + | Home Phone [...] Providers + +------+ + | Care Lead Burner Apprentice Name | Role | Phone | + +------+ + PCP | Unavailable | + +------+ + Encounter Details +--------+ + + + + | Date | Type | Department | Care Team | Description | +--------+ + + + + | 10/18/ | Hospital | [facility] | | | | 1991 | Encounter | [facility] | | | | | | [facility] [address] | | | | | | [place], | | | | | | [place] [address] | | | | | | [phone] | | | +--------+ + + + [...]
--- OUTSIDE RECORDS SUMMARY | ~2020-07-19 | XMS | Encounter Summary ---
Demographics + + + | Address | [address] | | | [place] [address] | + + + | Home Phone [...] Providers + +------+ + | Care Mold Yard Supervisor Name | Role | Phone | + +------+ + PCP | Unavailable | + +------+ + Encounter Details +--------+ + + + + | Date | Type | Department | Care Team | Description | +--------+ + + + + | 05/21/ | Hospital | [facility] | | | | 1991 | Encounter | [facility] | | | | | | [facility] [address] | | | | | | [place], | | | | | | [place] [address] | | | | | | [phone] | | | +--------+ + + + [...]
--- OUTSIDE RECORDS SUMMARY | ~2020-07-19 | XMS | Encounter Summary ---
Demographics + + + | Address | [address] | | | [place] [address] | + + + | Home Phone [...] + + | Author | [facility] | + + + | Organization | [facility] [facility] [...] Providers + +------+ + | Care Manager Social Media Name | Role | Phone | + [...] Erroneous Encounter | | 2007 | | [place] [facility] | [facility] | - Disregard | | | | and Healing [address]surgery [address] | | | | | [address] [facility] | [address] | | | | | Health and Healing, | [place], [place] | | | | | [facility] | [address] | | | | | Floor [place], [place] | | | | | | [address] | | | | | | [phone] | | | +--------+--------+ + + + [...] Kiki Rosen 08/15/2008 10:45 AM PDTCalled in [place] 5 [address]80 with on refill to [phone] Tdocumented in this encounter Plan of Treatment Not on filedocumented as of this encounter Visit Diagnoses Not on filedocumented in this encounter"
--- OUTSIDE RECORDS SUMMARY | ~2020-07-19 | XMS | Encounter Summary ---
Demographics + + + | Address | [address] | | | [place] [address] | + + + | Home Phone [...] | Author | [facility] [facility] | + + + | Organization | [facility] [employer] [facility] | + [...] Providers + +------+ + | Care Casing Worker Name | Role | Phone | [...] Cerebri | | 2006 | Visit | [facility] | | (Primary Dx) | | | | Neuro-Ophthalmology | | | | | | [address] [facility] | | | | | | Mailcode: PATTI | | | | | | [place] [address] | | | | | | [phone] | | | +--------+---------+ + + + [...] Brad Currie MD Neuro-Ophthalmology and Cerebrovascular Disease Repertoire Manager of Ophthalmology, Neurology, and Neurosurgery documented [...]
--- OUTSIDE RECORDS SUMMARY | ~2020-07-19 | XMS | Encounter Summary ---
Demographics + + + | Address | [address] | | | [place] [address] | + + + | Home Phone [...] Providers + +------+ + | Care Lamp Shades Supervisor Name | Role | Phone | + +------+ + PCP | Unavailable | + +------+ + Encounter Details +--------+ + + + + | Date | Type | Department | Care Team | Description | +--------+ + + + + | 10/25/ | Hospital | [facility] | | | | 1991 | Encounter | [facility] | | | | | | CENTER [address] | | | | | | [place] | | | | | | [address] | | | | | | [phone] | | | +--------+ + + + [...]
--- OUTSIDE RECORDS SUMMARY | ~2020-07-19 | XMS | Encounter Summary ---
Demographics + + + | Address | [address] | | | [place] [address] | + + + | Home Phone [...] Team Providers + +------+ + | Care Mft Name | Role | Phone | + +------+ + PCP | Unavailable | + +------+ + Encounter Details +--------+ + + + + | Date | Type | Department | Care Team | Description | +--------+ + + + + | 07/07/ | Hospital | [facility] | | | | 1991 | Encounter | [facility] | | | | | | CENTER [address] | | | | | | [place] | | | | | | [address] | | | | | | [phone] | | | +--------+ + + + [...]
--- OUTSIDE RECORDS SUMMARY | ~2020-07-19 | XMS | Encounter Summary ---
Demographics + + + | Address | [address] | | | [place] [address] | + + + | Home Phone [...] Providers + +------+ + | Care Music Writer Name | Role | Phone | + +------+ + PCP | Unavailable | + +------+ + Encounter Details +--------+ + + + + | Date | Type | Department | Care Team | Description | +--------+ + + + + | 10/21/ | Hospital | [facility] | | | | 1991 | Encounter | [facility] | | | | | | [facility] [address] | | | | | | [place], | | | | | | [place] [address] | | | | | | [phone] | | | +--------+ + + + [...]
--- OUTSIDE RECORDS SUMMARY | ~2020-07-19 | XMS | Encounter Summary ---
Demographics + + + | Address | [address] | | | [place] [address] | + + + | Home Phone [...] + + | Author | [facility] | + + + | Organization | [facility] [employer] [facility] | + + [...] Providers + +------+ + | Care Public Health Name | Role | Phone | + [...] site) | | | | Ave [facility] | [place], [place] | | | | | Health and Healing, | [address] | | | | | | [phone] | | | | | floor [place], [place] | | | | | | [address] | | | | | | [phone] | | | +--------+ + + + [...]
--- OUTSIDE RECORDS SUMMARY | ~2020-07-19 | XMS | Encounter Summary ---
Demographics + + + | Address | [address] | | | [place] [address] | + + + | Home Phone [...] | Replaced By [facility] [facility] | + + + | Organization | Replaced By [facility] [employer] [facility] | + [...] Team Providers + +------+ + | Care Church Worker Name | Role | Phone | [...] Report | | 2006 | | Center [place] [address] | | | | | Transcribed | [facility] | | | | | | for Health and | | | | | | Healing, [address] | | | | | | [place], [place] | | | | | | [address] | | | | | | [phone] | | | +--------+ + + + [...] 02/07/2007 12:00 AM PDTAssociated Order(s): OPERATION RECORD [id number] [facility]NA[facility] [id number] Date: 02/07/2007 Attending Surgeon: Hay Hughes M.D. Bods Developer(s): Pascual Bermudez M.D. 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 The traffic assistant retracted the orbital fat bag with [...] in good condition. Hay Hughes M.D. / [id number] / [id number] / [id number] / [id number] cc: Brad Currie M.D. [facility] Brenden Benavides M.D. [facility] [address] [place] [id number] Electronically signed by Hay Hughes 02-12-2007 05:13:05 [...] | 02/07/2007 12:00 AM PDT | | [id number] | | [id number] [place] [id number] | | | | Date: 02/07/2007 | | | | Attending Surgeon: Hay Hughes M.D. | | | | Bods Developer(s): Pascual Bermudez M.D. | | | [...] and medial orbital | | septum. The traffic assistant retracted the orbital fat bag with [...] | | | JN / | | [id number] / [id number] / [id number] / [id number] | | | | | | | | cc: | | | | | | Brad Currie M.D. | | [facility] | | | | | | Brenden Benavides M.D. | | [facility] | | [address] | | [place] [address] | | | | | | Electronically signed by Hay Hughes 02-12-2007 05:13:05 PM | | | | | + + documented in this encounter Visit Diagnoses Not on filedocumented in this encounter"
--- OUTSIDE RECORDS SUMMARY | ~2020-07-19 | XMS | Encounter Summary ---
Demographics + + + | Address | [address] | | | [place] [address] | + + + | Home Phone [...] + | Author | [facility] | + + + | Organization | [facility] [employer] [facility] | [...] Team Providers + +------+ + | Care Counseling Psychologist Name | Role | Phone | [...] Telephone follow-up | | 2015 | | [place] | [address] | | | | | Neuro-Ophthalmology | [place], [place] | | | | | at [facility] [address] | [address] | | | | | [address] | [phone] | | | | | [place], | | | | | | | | | | | | [place], [place] | | | | | | [address] | | | | | | [phone] | | | +--------+ + + + [...]
--- OUTSIDE RECORDS SUMMARY | ~2020-07-19 | XMS | Encounter Summary ---
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
--- OUTSIDE RECORDS SUMMARY | ~2020-07-19 | XMS | Encounter Summary ---
Demographics + + + | Address | [address] | | | [place] [address] | + + + | Home Phone [...] Team Providers + +------+ + | Care Pricing Coordinator Name | Role | Phone | + +------+ + PCP | Unavailable | + +------+ + Encounter Details +--------+ + + + + | Date | Type | Department | Care Team | Description | +--------+ + + + + | 05/26/ | Hospital | [facility] | Alexa Bower DO | Infection of lumbar | | 2017 - | Encounter | [facility] [address] | [address] | spine ([facility]); Type [address] | | | [address] | [place] [address] | diabetes mellitus | | 05/27/ | | [place], [place] | [phone] | without | | 2017 | | [address] | | complication, | | | | [phone] | | unspecified long | | | | | | term insulin use | | | | | | status ([facility]); | | | | | | History of drug | | | | | | abuse ([facility]); BMI | | | | | | 40.0-44.9, adult | | | | | | ([facility]); Back pain, | | | [...] 1542 Date of Service: 05/27/171842 Status: Signed Recruiting Associate: Reynold Garcia MD (Physician) I was informed by nursing that pt decided to leave [facility] on 05/27/2017. This has been document ed [...] 05/27/171849 Date of Service: 05/27/171842 Status: Signed Recruiting Associate: Mesha Brown RN (Registered Nurse) Pt anxious, [...] Date of Service: 05/27/17 1303 Status: Signed Recruiting Associate: Mesha Brown RN (Registered Nurse) Went to [...] Date of Service: 05/27/17 1045 Status: Signed Recruiting Associate: Da Goode RN (Registered Nurse) 05/27/17 1042 [...] Oriented Prior functional status independant Power of Sausage Mixer No Anticipated Discharge Plan Post Acute Care Needs None at this time Resources Financial concerns No Transportation issues No ( will transport) Patient/Family concerns No Prescription Plan Yes Name of Pharmacy [facility] in [place] [facility] phone number [phone] Previous home health equipment No Vascular access device No Ostomy/Drains/Appliances No Anticipated Disposition Facility Type Home Met with patient at bedside. Annabella is a 41 year old female with a history of anxiety/depre sssion, HTN, COPD, DM type 2, and IV drug use. She lives in [place] with her daughter 2 6, and 14 year old twins. Her is currently getting a new house ready for them to mov e into and is active in their lives. Annabella went to [facility] for pelvic pain and spotting but left AMA while waiting for MR I results because she couldn't smoke. The hospital called her and recommended her to go to [facility] based on the MRI results. Patient is independent in all ADL's. Because of the IV drug use, sending her home with an I V line is not recommended is she needs outpatient IV abx. Patient's PCP is: Virginia Reddy NP Patient's insurance:[facility] FOREIGN AGENT; [place] Coverage concerns:no Medication coverage/concerns: no Community resources utilized / needed: TBD Assistance in transportation: not at this time Identification of any specific education / training: TBD Barriers to Discharge / Alternative housing needed: not at this time Anticipated DCP: Home DA GOODE RN Case Management [phone] Andre Lay MD - 05/27/2017 9:46 AM PDT Progress Notes by Andre Alonso MD-R1 at 05/27/17945 Author: Andre Alonso MD-R1 Service: Hospitalist Author Type: Resident-Y1 Filed: 05/27/171900 Date of Service: 05/27/17945 Status: Attested Recruiting Associate: Andre Alonso MD-R1 (Resident-Y1) Cosigner: Reynold Garcia [...] hospitalization due to abuse p otential and chcf side effects. I anticipate that pt may not be happy during this hospi yuridia stay for this reason. I recommend risk management to see pt proactively. IVDU; heroin H/o CRADLE PLACER shunt. [facility] Service: Hospitalist Progress Note Hospital Day: LOS: 0 days Post-Op Day: * No surgery found * SUBJECTIVE Patient Summary: the patient is a 41-year-old female with significant past medical h istory of type II diabetes, hypertension, gastroesophageal reflux disease, depression, IV dr ug abuse who is a transfer from [facility] for further evaluation. Events Overnight: The [...] IV drug abuse who was transferred from [facility] in [place], [place] for further evaluation of suspicious lumbar [...] past 2-3 weeks. IUD was placed approximat audubon 3 years ago. We are recommending that [...] 05/27/1736 Date of Service: 05/27/17633 Status: Signed Recruiting Associate: Cathy Garcia RN (Registered Nurse) Contacted [facility]. Will fax over current microbiology GC test along with most current wound culture results. onver ludwin Transaction, Provider Unknown - 05/27/2017 5:15 AM PDT Progress Notes by Remy Trinidad RPH at 05/27/17 0515 Author: Remy Trinidad RPH Service: Pharmacy Author Type: Pharmacist Filed: 05/27/17514 Date of Service: 05/27/17514 Status: Signed Recruiting Associate: Remy Trinidad RPH (Pharmacist) Note ccl 125.9ml/min meds reviewed Pharmacy will follow c 0515 docume nted in this encounter H&P Notes Tom Rae MD - 05/27/2017 2:41 AM PDT H&P by BERTRAM Boyer at 05/27/17240 Author: BERTRAM Boyer Service: Hospitalist Author Type: Resident-Y1 Filed: 05/27/17621 Date of Service: 05/27/17240 Status: Attested Addendum Recruiting Associate: BERTRAM Boyer (Resident-Y1) Related Notes: Original Note by BERTRAM Boyer (Resident-Y1) filed at 05/27/17513 Cosigner: Alexa Bower DO at 06/21/17621 Attestation signed by Alexa Bower DO at 06/21/17621 (Updated) Chief complaint: Back Pain "I had an MRI and they told me there's fluid on my spine" Abdominal Pain Vaginal Bleeding Referral "the infectious disease doctor from [place] told me to come here to be admitted" Reason for admission: Possible paraspinal abscess Patient seen and evaluated independently. Patient denies saddle anesthesia. No suprapubic d istention or tenderness noted. Agree with above assessment, will recommend closely monitoring this patient for respiratory distress and use of narcotics for pain. [facility] Service: Hospitalist Admission History & Physical Date [...] in her spine. She was seen at [facility] in [place] yesterday where she was being evaluated for [...] P ain improved with medications. Workup at [facility] revealed elevated CRP of 7.7, CBC [...] of the right facet joint of L4-L5. [facility] ED physician spoke with Dr. Triston alcantara ([place]) who recommended radiology guided sampling of fluid by IR as well as blood cultures . He called patient to advise her to come to [facility] for further evaluation. Patient uses IV he roin, last use was yesterday due to the pain. She states she is unsure if the needles she us es are clean. In the [facility] ED, patient found to be [...] back pain MRI lumbar spine performed at [facility] in [place] showed a subcentimeter rim-enhanci ng collection adjacent [...] drug abuse Currently using IV heroin. Consulted lead case manager for assistance with drug rehabilitation. [...] follow up urinalysis - G/C Aptima from [facility] pending, hospitalist to request results DVT prophylaxis: [...] 06/06/17921 Date of Service: 05/27/17617 Status: Addendum Recruiting Associate: Kate Rangel MD (Physician) Related Notes: Original Note by Kate Rangel MD (Physician) filed at 06/06/17920 [facility] Service: Infectious Disease Initial Consult Note Date of Admission: 05/26/2017 Reason for Consultation: Concern for spine infection in a patient with history of IV drug use Requesting Physician: Dr. Alexa Bower, Hospitalist History Obtained From: patient, chart review CHIEF COMPLAINT: Back pain; prior evaluation at [facility] in [place] with MRI concer ns for spine infection HISTORY OF PRESENT ILLNESS The patient is a 41 y.o. female with significant past medical history of IV heroin use (las t used about 2 weeks ago), MRSA skin infection, type 2 DM, anxiety, depression, had a CRADLE PLACER shar nt in [place], [place] in 2005 and per patient's account had further surgery/?taken out at [facility] in 008. She denies history of [...] On 05/25, the patient was seen at [facility] in [place] for low back pain which she linda cribed as severe and pelvic pain. She has been having vaginal spotting; she has an IUD and described having normal period the prior month. The vaginal spotting reportedly has stopped but she is interested in seeing a SCHOOL GUIDANCE COUNSELOR. The low back pain is persistent, described [...] had been (informally) reviewed by Neurosurgery and [facility] Radiology does not think there [...] normal menstruation in the past month. Suggest OB-SCHOOL GUIDANCE COUNSELOR refe rral as an outpatient. Case had been discussed with ER physician at [facility] and with Dr. Garcia, her hospitalis [...] 05/27/17313 Date of Service: 05/27/17313 Status: Signed Recruiting Associate: Kenya Zavala RN (Registered Nurse) Dr Bower at pt BS Kenya Zavala RN 05/27/17313 Ed Nation MD - 05/27/2017 12:26 AM PDT ED Provider Notes by Ed Toney DO at 05/27/17 0026 Author: Ed Toney DO Service: Emergency Department Author Type: Physician Filed: 05/27/17 0443 Date of Service: 05/27/17 0026 Status: Signed Recruiting Associate: Ed Toney DO (Physician) [facility] Department of Emergency Medicine 12:26 AM 05/26/2017 [...] Bleeding Referral "the infectious disease doctor from [place] told me to come here to be [...] vaginal bleeding. Patient was seen in the [place] ED 3 days ago for vagina l bleeding, where she was found to have a "pocket of fluid in my spine." Patient became upse t, then left the facility AMA. She was then called today with her results, and advised to co me to [facility] ED for further evaluation/admission. The [...] and was advised to come to the [facility] ED for admission and treatment of possible abscess of spine. Dr. Rangel is aware of patient's case and is requesting three sets of blood cul tures and admission. Will order labs, and reevaluate. Will also obtain MRI report. 2:25 AM Reviewed patient's records which were sent from [facility] in [place]. 2:34 AM Discussed patient's case with Dr. [...] reviewed (Using the electronic record system of [facility], I car efully reviewed the records with regard to the past medical/surgical history, previous medic ations, and allergies). Nursing notes reviewed for chief complaint, medications, clinical presentation and vital si gns Laboratory Evaluation Results Procedure Component Value Ref Range Date/Time Drugs of Abuse Screen, UR Hospital and ED Only [[id number]] Order Status: Sent Specimen Information: Urine, Clean Catch Cardiac Panel [[id number]] (Abnormal) Collected: 05/27/17315 Order Status: Completed Updated: [...] Index UNABLE TO CALCULATE Sedimentation Rate (ESR) [[id number]] (Abnormal) Collected: 06/30/17 0316 Order Status: Completed Specimen Information: Blood Updated: 05/27/17357 ESR 23 (H) 0 - 20 mm/Hr Lactic acid [[id number]] Collected: 05/27/17316 Order Status: Completed Specimen Information: Blood Updated: 05/27/17348 LACTIC ACID 0.4 0.4 - 2.0 mmol/L C-Reactive Protein [[id number]] (Abnormal) Collected: 05/27/17315 Order Status: Completed Specimen Information: Blood Updated: 05/27/17347 CRP 1.7 (H) <0.5 mg/dL Blood culture, set 2 [[id number]] Collected: 05/27/17317 Order Status: Sent Specimen Information: Blood from Blood Updated: 05/27/17322 Blood Culture Set 1 [[id number]] Collected: 05/27/17314 Order Status: Sent Specimen Information: Blood from Blood Updated: 05/27/17320 Urinalysis (reflex to microscopic/reflex to culture) [[id number]] (Abnormal) Collected: 05/27/17199 Order Status: Completed Specimen Information: Urine, Clean Catch Updated: 05/27/17 02 23 COLOR UA RED CLARITY CLEAR Specific Vina, UA 1.005 1.002 - 1.030 LEUKOCYTE ESTERASE [...] Type 2 diabetes mellitus without complication, unspecified chcf insulin use status (H CC) History of [...] recognition system. The possibility of "sound alike" filter tank operator errors, addition and/or deletions may occur. [...] Date of Service: 05/27/17 0004 Status: Signed Recruiting Associate: Kenya Zavala RN (Registered Nurse) "3 Days [...] 05/27/17805 Date of Service: 05/27/17805 Status: Signed Recruiting Associate: Mesha Brown RN (Registered Nurse) Problem: Pain [...] Testing | | | performed at [facility];[address] [place] [address];[place] [address] | | + + + + +---------+ [...] | | Fingerstick | performed at [facility];[address] | | LAB | | | | [address];[place] | | | | | | [address] | | | | + + + [...] | | Fingerstick | performed at [facility];[address] | | LAB | | | | [address];[place] | | | | | | [address] | | | | + + + [...] - 1.030 | EXTERNAL | | | Vina, | | | LAB | | | [...] | | l squamous | performed at [facility], [address] | | LAB | | | epithelia, | [address], | | | | | UA | [place] [address] | | | | + + + [...] | | Patient | performed at [facility];[address] | | LAB | | | [address];[place], [place] | | | | | | [address] | | | | + + + [...] | | | | performed at [facility] | | | | | | [address];[place], [place] | | | | | | [address] | | | | + + + [...] | | | Basophils | performed at [facility], [address] | K/uL | LAB | | | | [address], | | | | | | [place] [address] | | | | + + + [...] EXTERNAL | | | | performed at [facility], [address] | | LAB | | | | [address], | | | | | | [place] [address] | | | | + + + [...] EXTERNAL | | | | performed at [facility], [address] | | LAB | | | | [address], | | | | | | [place] [address] | | | | + + + [...] + + | Hemoglobin | 5.7Comment: The Portuguese | 4.0 - 6.0 % | EXTERNAL [...] | | | | | performed at [facility], [address] | | | | | | Teresa [address], | | | | | | [place] [address] | | | | + + + [...] | | | | | | at [facility], [address] | | | | | | [address], | | | | | | [place] [address] | | | | + + + [...] | | Fingerstick | performed at [facility];[address] | | LAB | | | | [address];[place], [place] | | | | | | [address] | | | | + + + [...] | | | | performed at [facility];[address] | | | | | | [facility];[place], [place] | | | | | | [address] | | | | + + + [...] | | | | performed at [facility];[address] | mmol/L | LAB | | | | [address];[place] | | | | | | [address] | | | | + + + [...] | | | | | | [facility];[address] [place] [address] | | | | | | Blvd;[place] [address] | | | | + + + [...] | | | | performed at [facility] | | LAB | | | | [address];[place], [place] | | | | | | [address] | | | | + + + [...] | | | | performed at [facility];[address] | | LAB | | | | [address];[place], [place] | | | | | | [address] | | | | + + + [...] | | QUALITATIVE | performed at [facility] | | LAB | | | | Nereyda [facility];[place], [place] | | | | | | [address] | | | | + + + [...] - 1.030 | EXTERNAL | | | Vina, | | | LAB | | | [...] | | Cells | performed at [facility];[address] | | LAB | | | | [address];[place], [place] | | | | | | [address] | | | | + + + [...] Type 2 diabetes mellitus without complication, unspecified benefits specialist recruiter insulin use | | status | + [...]
--- OUTSIDE RECORDS SUMMARY | ~2020-07-19 | XMS | Encounter Summary ---
Demographics + + + | Address | [address] | | | [place] [address] | + + + | Home Phone [...] Providers + +------+ + | Care Elementary Reading Tutor Name | Role | Phone | + +------+ + PCP | Unavailable | + +------+ + Encounter Details +--------+ + + + + | Date | Type | Department | Care Team | Description | +--------+ + + + + | 06/10/ | Hospital | [facility] | | | | 1991 | Encounter | [facility] | | | | | | [facility] [address] | | | | | | [place], | | | | | | [place] [address] | | | | | | [phone] | | | +--------+ + + + [...]
--- OUTSIDE RECORDS SUMMARY | ~2020-07-19 | XMS | Encounter Summary ---
Demographics + + + | Address | [address] | | | [place] [address] | + + + | Home Phone [...] Team Providers + +------+ + | Care Asphalt Patcher Name | Role | Phone | + +------+ + PCP | Unavailable | + +------+ + Encounter Details +--------+ + + + + | Date | Type | Department | Care Team | Description | +--------+ + + + + | 08/21/ | Hospital | [facility] | | | | 1991 | Encounter | [facility] | | | | | | CENTER [address] | | | | | | [place] | | | | | | [address] | | | | | | [phone] | | | +--------+ + + + [...]
--- OUTSIDE RECORDS SUMMARY | ~2020-07-19 | XMS | Encounter Summary ---
Demographics + + + | Address | [address] | | | [place] [address] | + + + | Home Phone [...] + | Author | [facility] | + + + | Organization | [facility] | + + [...] Providers + +------+ + | Care Pool Finisher Name | Role | Phone | + +------+ + | Pedro Luis Sams MD | PCP | | + +------+ + Encounter Details +--------+ + + + + | Date | Type | Department | Care Team | Description | +--------+ + + + + | 10/19/ | Telephone | [facility] | Funmilayo Osorio MD | | | 2010 | | [place] | [address] | | | | | leon at [facility] [address] | [place], [place] | | | | | [address] [facility] | [address] | | | | | Health and Healing, | [phone] | | | | | | | | | | | Floor [place], [place] | | | | | | [address] | | | | | | [phone] | | | +--------+ + + + [...] patient is currently unable to travel to [place] since she is caring for her mother who is ill. The patient has an appt scheduled with an fan mail editor in her local area next week. I [...] her to see the financial counselor at [facility]. In the mean time the patient agreed to let me know about any changes in her vision or worse nereida headaches. She was told to go to the ER if necessary. Funmilayo Osorio MD Engraving Supervisor [facility] documented in this encou nter Plan of Treatment Not on filedocumented as of this encounter Visit Diagnoses Not on filedocumented in this encounter"
--- OUTSIDE RECORDS SUMMARY | ~2020-07-19 | XMS | Encounter Summary ---
Demographics + + + | Address | [address] | | | [place] [address] | + + + | Home Phone [...] | Author | [facility] | + + + | Organization | [facility] | + + + | Address | Unknown | + + + | Phone | Unavailable | + + + Support + + +---------+ + | Name | Relationship | Address | Phone | + + +---------+ + | Ruby Au | ECON | Unknown | | + + +---------+ + Care Team Providers + +------+ + | Care Fourdrinier Wire Weaver Name | Role | Phone [...] | | | | | | | [place] | | | | | | | [id number] | | | | | | | [facility] | | | | | | | [place], | | | | | | | [place] [address] | | | | | | | Phone: | | | | | | | [phone] | +--------+--------+ + + + + Encounter Details +--------+ + + + + | Date | Type | Department | Care Team | Description | +--------+ + + + + | 08/01/ | Hospital | [facility] [address] | Sam Pedroza MD | | | 2007 - | Encounter | [place] | [address] | | | | | [id number] [facility] | [place], [place] | | | 08/02/ | | HOSPITAL [place], | [address] | | | 2007 | | [place] [address] | [phone] | | | | | [phone] | | | +--------+ + + + [...] in 2 weeks, please call for appointment: [phone] Condition On Discharge: Vital Signs at discharge [...] in 2 weeks, please call for appointment: [phone] Condition On Discharge: Vital Signs at discharge [...] at this time. Yessenia Nowak, OTR/ L [address] Tomasz Caldera Md - 02/2008 11:08 AM [...] PM PDTAssociated Order(s): ANESTHESIA/SEDATION Other, [facility] - 08/02/2008 12:16 PM PDTAssociated Order(s): ANESTHESIA/SEDATION Other, Faculty - 12:16 PM PDT Other, Faculty - 08/02/2008 12:16 PM PDTAssociated Order(s): ANESTHES IA/SEDATION Tomasz Rice - 08/01/2008 12:00 AM PDTAssociated Order(s): OPERATION RECOR D [id number] [facility] [place] [id number] Date: 08/01/2008 Attending Surgeon: Sam Pedroza M.D. Heavy Equipment Operator Apprentice(s): Pooja Al M.D. Preoperative Diagnosis(es): Pseudotumor cerebri. [...] with tonsils and then gently incised. A Houston 4 was then easily fed through it, [...] M.D. Sam Pedroza M.D. SYBIL / LANETTE [id number] / [id number] / [id number] / am Pedroza 02/2008 12:00 AM PDTAssociated Order(s): TEACHING PHYSICIAN [id number] [facility] [place] [id number] Date: 08/01/2008 Attending Surgeon: Sam Pedroza M.D. Heavy Equipment Operator Apprentice(s): Pooja Al M.D. Preoperative Diagnosis(es): Pseudotumor cerebri. [...] Palomo Jansen. Sam Pedroza M.D. AD / [id number] / [id number] / [id number] / [id number] ther, Faculty - 07/24/2008 9:44 AM PDT [...] + + | Performing | Address | City/State[facility] | Phone Number | | Organization | | | | + +---------+ + + | [facility] DEPARTMENT OF | | | | | RADIOLOGY | | | | + +---------+ + + OPERATION RECORD (08/01/2008 12:00 AM PDT) + + + | Narrative | Performed At | + + + | [id number] | | | [id number] | | | [place] [place] [id number] Date: | | | 08/01/2008 Attending Surgeon: | | | Sam Pedroza M.D. Heavy Equipment Operator Apprentice(s): | | | Tomasz Rice M.D. | [...] | tonsils and then gently incised. A Houston 4 was then easily fed | | [...] | Pooja Pedroza M.D. KG / LANETTE [id number] / | | | [id number] / [id number] / | | + + + + + | Procedure Note | + + | Krystal Rushing, Tomasz - 08/01/2008 12:00 AM PDT [id number] | | [id number] PAT GRIFFIN S | | [id number] Date: 08/01/2008 Attending Surgeon: Sam | | Pooja Pedroza Heavy Equipment Operator Apprentice(s): Tomasz Rice M.D. | | Palomo Jansen [...] tonsils and | | thengently incised. A Houston 4 was then easily fed through it, [...] Sam Pedroza M.D. KG / | | [id number] / [id number] / [id number] / T: 08/02/2008 | |dripping from the [...] tonsils and then | |gently incised. A Houston 4 was then easily fed through it, [...] | | | |KG / HS | |[id number] / [id number] / [id number] / | | | | | | | | | | | | | | | | | | | | | + + TEACHING PHYSICIAN (08/01/2008 12:00 AM PDT) + + + | Narrative | Performed At | + + + | [id number] | | | [id number] | | | [place] [id number] | | | Date: 08/01/2008 Attending Surgeon: | | | Sam Pedroza M.D. Heavy Equipment Operator Apprentice(s): | | | Tomasz Rice M.D. | [...] Sam | | Leif Pedroza M.D. / [id number] / [id number] / 80540 / 13437 D: | | | 08/01/2008 | | + + + + + | Procedure Note | + + | Sam Pedroza MD - 08/01/2008 12:00 AM PDT [id number] | | [id number] [facility] ANNABELLA [place] | | [id number] Date: 08/01/2008ttending Surgeon: Sam | | Pooja Pedroza Heavy Equipment Operator Apprentice(s): Tomasz Rice M.D. | | Palomo Jansen [...] | Bisi. Sam Pedroza M.D. AD / [id number] / [id number] / [id number] / [id number]: | | 08/01/2008T: 08/01/2008 | | | [...] | | | |AD / HS | |[id number] / [id number] / 17126 / 57852 | | | | | | | [...]
--- OUTSIDE RECORDS SUMMARY | ~2020-07-19 | XMS | Encounter Summary ---
Demographics + + + | Address | [address] | | | [place] [address] | + + + | Home Phone [...] + + | Organization | [facility] | | [...] Providers + +------+ + | Care Gate Agent Name | Role | Phone | + +------+ + PCP | Unavailable | + +------+ + Encounter Details +--------+ + + + + | Date | Type | Department | Care Team | Description | +--------+ + + + + | 05/18/ | Hospital | [facility] | | | | 1991 | Encounter | [facility] | | | | | | [facility] [address] | | | | | | [place], | | | | | | [place] [address] | | | | | | [phone] | | | +--------+ + + + [...]
--- OUTSIDE RECORDS SUMMARY | ~2020-07-19 | XMS | Encounter Summary ---
Demographics + + + | Address | [address] | | | [place] [address] | + + + | Home Phone [...] + | Author | [facility] | + + + | Organization | [facility] | + + + | Address | Unknown | + + + | Phone | Unavailable | + + + Support + + +---------+ + | Name | Relationship | Address | Phone | + + +---------+ + | Ruby Au | ECON | Unknown | | + + +---------+ + Care Team Providers + +------+ + | Care Cleaner Housekeeping Name | Role | Phone | + [...] | | | | Sky Maloney | [facility], | | | | | | [place], [place] | 10th Floor | | | | | | [address] | [place], [place] | | | | | | Phone: | [phone] | | | | | | [phone] | Phone: | | | | | | Fax: | [phone] | | | | | | [phone] | Fax: | | | | | | | [phone] | +--------+--------+ + + + + Reason for Visit + + + | Reason | Comments | + + + | 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 | | + + + Encounter Details +--------+ + + + + | Date | Type | Department | Care Team | Description | +--------+ + + + + | 03/13/ | Emergency | [facility] | Abby Whyte MD | | | 2012 | | Department [address] | [address] | | | | [address] | [facility] | | | | | [facility] | [place], [place] | | | | | [place], [place] | [address] | | | | | [address] | [phone] | | | | | [phone] | | | | | | | [...] the irma aviva. Thanks for coming to [facility] today. Your head CT was negative for any new findings. The neurosurgeon did not think there was a malfunction in your shunt. The invoicing specialist recommends you taking Diomox again and follow up in 1 week at [facility]. Please follow up with your doctor. Rest, [...] MONSIVAIS MD Attending Physician: Ru Roque MD Electronics Technology Department Chair Attending: Dewey Goodwin MD CC: history of [...] - no pronator drift Bi Tri Delt Pleating Supervisor WE HI HF KE DF PF EHL [...] -No acute [place] [id number] PGY-[address] Goodwin, attending neurosurgeon credit collections manager, who agrees with the above. Hay [...] done Previously followed by Dr. Currie at [facility] (last seen 02/2007) Previously on Diamox (max [...] sheath fenestra tion (by Dr. Celis at [facility] in 2006) and s/p multiple lumboperitoneal shunt [...] convergence i nsufficiency as outpatient -Follow-up with [facility] ([facility] at [facility]) in 1-2 weeks Patient t o call [phone] for appointment. Call or return to Emergency Department sooner if sympto ms worsen. Peña Martin Resident PGY-2 [facility] 03/13/2013 documented in this encounter ED Notes [...] PLASMA (LAB) 0.83 0.60-1.10 mg/dL EGFR - BURMESE >60 >60 mL/min EGFR NON -BURMESE >60 >60 mL/min SODIUM, PLASMA (LAB) 141 [...] Pt6 is being signed out to the [facility] ED t jelani. ED Medication Administration from 03/13/2013 1142 to 03/13/20135 Date/Time Order Dose Route Action 03/13/2013 8570 NaCl 0.9 % IV 1,000 mL Intravenous [...] lumbar shunt placed 2008 Drove here from [place], usually seen in [place] One week of "40 pound weight gain" [...] not recommend LP. Ru Roque MD, FACEP Biodiesel Production Technician, Emergency Medicine Ru Roque MD, FACEP Biodiesel Production Technician, Emergency Medicine u Roque MD - 03/13/2013 5:04 PM PDT 5:04 PM, AMOL ALTMAN MD, Resident Note Sign out from Dr. Lopez and Dr. Whyte at 5:04 PM. Situation: In summary, Annabella Au is a 37 y.o. female who presented with headache for 4 days w/ hx of ARABIC LINGUIST shunt. Background: Significant Past medical History: Lumbar [...] PLASMA (LAB) 0.83 0.60-1.10 mg/dL EGFR - BURMESE >60 >60 mL/min EGFR NON -BURMESE >60 >60 mL/min SODIUM, PLASMA (LAB) 141 [...] cost clinic Return precautions given F/u with [facility] in 1-2 weeks Diomox 500mg BID Oxycodone Amol Altman MD R2 Emergency Medicine Resident gapito, Amol - 013 5:04 PM PDT 5:04 PM, AMOL ALTMAN MD, Resident Note Sign out from Dr. Lopez and Dr. Whyte at 5:04 PM. Situation: In summary, Annabella Au is a 37 y.o. female who presented with headache for 4 days w/ hx of ARABIC LINGUIST shunt. Background: Significant Past medical History: Lumbar [...] PLASMA (LAB) 0.83 0.60-1.10 mg/dL EGFR - BURMESE >60 >60 mL/min EGFR NON -BURMESE >60 >60 mL/min SODIUM, PLASMA (LAB) 141 [...] cost clinic Return precautions given F/u with [facility] in 1-2 weeks Diomox 500mg BID Oxycodone Amol Altman MD R2 Emergency Medicine Resident Marcelo Varma R N - 03/13/2013 12:00 PM PDTPatient c/o SOB, CP and weight gain of 41 lbs over 1 week per pat iedanish. Halle Posey EMT - 03/13/2013 11:52 AM PDTPt was scoped for [facility]. Electronically josiah d by SAURABH Anderson at 03/13/2013 11:52 AM Monica Posey EMT - 03/13/2013 11: 45 AM PDTPt CO head pain, vision disturbance, nausea, vomiting. Pt has a ARABIC LINGUIST shunt. Pt states referring hospital says it [...] reports she has CT last Tuesday at [facility], states " They said my shunt was dislodged". Pt is a/ox4.Electronically signed by Elisabeth Ortiz RN at 11:44 AM Elisabeth Bella RN - 03/13/2013 11:43 AM PDTPossible ARABIC LINGUIST shunt malfunction, CAPONE x4 days. documented in this encounter Miscellaneous Notes Scan - Other, Faculty - 03/15/2013 9:40 AM PDTElectronically signed by Faculty Other at 9:40 AM PDTED Teaching Notes - Abby Whyte MD - 03/13/2013 8:46 PM PDTNo [facility] note - see shared resident/faculty [...] TOTH | [address] | [place], [place] | | | NACHO POINT OF CARE | [address] | [address] | | | TESTS | | | [...] [facility] | [address] | [place] [address] | | | SERVICES, CORE | PARK [...] | | | | | CHRISTIANO TORRES ([id number]) | | | | | | on 03/14/2013 10:35:55 AM | | | | + + + + + + + + | Specimen | + + | | + + + + + | Narrative | Performed At | + + + | Please click | [facility] DEPT OF | | on view image for the detailed interpretation from [employer] results. | CARDIOLOGY | + + + + + + + + | Performing | Address | City/State/Zipcode | Phone Number | | Organization | | | | + + + + + | [facility] | [address] | [place], [place] | | | CARDIOLOGY | [address] | [address] | | + + + + + [...] - [facility] | [address] | [place], [place] | | | NACHO POINT OF CARE | [facility] | [address] | | | TESTS | | | [...] | + + + + + | [facility] | [address] | [place] [address] | | | SERVICES, CORE | PARK [...] + | [facility] | [address] [facility] | [place] [address] | | | SERVICES, CORE | SKY [...] | | | LABORATORY | | | BURM[place] | | | SERVICES, | | | [...] | + + + + + | [facility] | [address] | [place] [address] | | | SERVICES, CORE | PARK [...] + | [facility] | [address] | [place] [address] | | | SERVICES, CORE | PARK [...] + | [place] - [place] - | [address] | [place] [address] | | | [place] | | | [...] + | [facility] | [address] | [place] [address] | | | SERVICES, CORE | SKY [...]
--- OUTSIDE RECORDS SUMMARY | ~2020-07-19 | XMS | Encounter Summary ---
Demographics + + + | Address | [address] | | | [place] [address] | + + + | Home Phone [...] Author | [facility] | + + + | Organization | [facility] [employer] [employer] [facility] [...] Providers + +------+ + | Care Benefits Sales Consultant Name | Role | Phone | + +------+ + | Brenden Benavides MD | PCP | | + +------+ + Encounter Details +--------+ + + + + | Date | Type | Department | Care Team | Description | +--------+ + + + + | 02/22/ | Telephone | [facility] | Hay Hughes MD [address] | | | 2006 | | [place] | [address] | | | | | Oculoplastics at | [place], [place] | | | | | [address] | [address] | | | | | [address] | [phone] | | | | | [facility] [place] | | | | | | [address] | | | | | | [place] [address] | | | | | | [phone] | | | +--------+ + + + [...] to run its course-she has no local nursing home manager- 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
[~2020-07-19 22:48] MED LIST changes: -AMITRIPTYLINE100 MG PO; +METFORMIN HCL500 M2 PO; -METFORMIN HCL500 MG PO; -ZOLOFT50 MG PO
--- NOTE | 2020-07-20 01:15 | NUR ---
PT ADMITTED FROM ED FOR OVERDOSE, PT ARRIVES INTUBATED WITH RT, DR DUMONT AND WIDE AREA NETWORK SYSTEMS ADMINISTRATOR. PT TRANSFERRED TO BED FROM [facility], BEGINS TO WAKE UP, BECOMING COMBATIVE AND TRYING TO PULL AT ETT. ATIVAN GIVEN PER DR DUMONT VERBAL ORDER. PT POSITIONED IN BED, SOFT WRIST RESTRAINTS APPLIED. PT ARRIVED WITH PROPOFOL GTT INFUSING AT 20MCG/KG/MIN, TURNED UP TO 30MCG/KG/MIN DURING TRANSFER AND ASSESSMENT. LUNGS HAVE COARSE SOUNDS. ETT IN PLACE, SECURED WITH BITE BLOCK IN PLACE. VENT SETTINGS PER DR DUMONT VERBAL ORDER, FIO2 60%, RATE 24, PEEP 5. 23CM AT THE LIP. IVF STARTED AT 125ML/HR.
--- NOTE | 2020-07-20 02:06 | NUR ---
RT IN TO SWITCH PT TO VENT FROM ED VENT.
--- NOTE | 2020-07-20 04:25 | NUR ---
PT SUDDENLY AWAKE, TRYING TO SIT UP AND PULL AT ETT DESPITE ATTEMPTS AT REASSURING PT. PROPOFOL GTT TURNED UP TO 50MCG/KG/MIN, 2MG IV ATIVAN GIVEN PRN. PT CALMS AFTER APPROX 5 MINUTES, BACK TO RESTING WITH EYES CLOSED. VSS, URINE OUTPUT QS, ASSESSMENT UNCHANGED FROM PREVIOUS
--- NOTE | 2020-07-20 06:30 | NUR ---
PT HAS BEEN RESTFUL, ON PROPOFOL GTT 50-75MCG/KG/MIN. URINE OUTPUT QS, HR STEADY 80'S.
--- NOTE | 2020-07-20 07:10 | EKG ---
[facility] [address] [facility] [place] [address] Signed Sinus tachycardia Nonspecific intraventricular conduction delay Borderline ECG When compared with ECG of 07-JUL-2020 19:48, No significant change was found Confirmed by HERMINIO DUMONT MD ([id number]) on 07/20/2020 7:09:51 AM Electronically Signed By: HERMINIO DUMONT MD 07/20/20 0710 PATIENT NAME: GABY STEWART Electrocardiogram DATE OF : 75 PHYSICIAN: HERMINIO DUMONT MD REPORT #: [id number] REPORT IS CONFIDENTIAL AND NOT TO BE RELEASED WITHOUT AUTHORIZATION
--- NOTE | 2020-07-20 08:00 | NUR ---
ASSESSMENT DONE. RT HERE, FIO2 DECREASED TO 40% FROM 60. ABG TO BE DRAWM. PROPOFOL GTT INFUSING AT 75 MCG/KG/MIN. WILL TITRATED PRN. VENT SETINGS. TV-500, FIO2-40, AC-24,PEEP-5, PIP-27. EET SECURED AT 23 AT TEETH. SIZE 7.5 EET.IVF PATENT AT 125 ML/HR, OLIVEROS CATH PATENT WITH CLEAR SNEHA URINE NOTED. DR. DUMONT HAS BEEN HER TO SEE PATIENT.
--- NOTE | 2020-07-20 08:09 | NUR ---
ABG RESULTS, PH-7.56, PCO2-24, PO2-51, SAT 89.
--- NOTE | 2020-07-20 08:47 | NUR ---
VENT SETTING CHANGE PER RT. AC-18, FIO2-50, TV-500,PEEP-5. PATIENT REMAINS CALM ON PROPOFOL GTT AT 60 MG/KG/MIN. NO FUTHER CHANGES.
--- NOTE | 2020-07-20 09:00 | NUR ---
see emar for titration of propofol.
--- NOTE | 2020-07-20 10:40 | NUR ---
K PHOS HUNG PER ORDERS. LR HELD AT THIS TIME K PHOS NOT COMPATIBLE WITH LR. NS HUNG WITH K PHOS TO EQUAL 125 ML ML/HR THIS IS RATE OF LR. CONTINUE TO TITRATE PROPOFOL RATE TODAY THUS FAR HAS BEEN BETWEEN 60 MCG/KG/MIN TO 75 MCG/KG/MIN.
--- NOTE | 2020-07-20 12:00 | NUR ---
ASSESSMENT UNCHANGED. REMAINS ON VENT. RR ON AC 18.
--- NOTE | 2020-07-20 14:30 | NUR ---
CURRENT RATE OF PROPOFOL IS 65 MCG/KG/MIN. K PHOS CONCURRENT WITH NS INFUSED. LR NOW INFUSING AT 125 ML/HR. HOB REMAINS ELEVATE AT 30 DEGRESS. ROUTINE ORAL CARE HAS BEEN GIVEN.
--- NOTE | 2020-07-20 15:30 | NUR ---
PROPOFOL AT 60 MCG/KG/MIN. IS WITH INCREASED AGITATION. ATIVAN 2 MG IV GIVEN.
--- NOTE | 2020-07-20 15:46 | NUR ---
REMAINS AGITATED AFTER ATIVAN GIVEN. PROPOFOL INCREASED TO 65 MCG/KG/MIN
--- NOTE | 2020-07-20 16:19 | NUR ---
DR. JACK PHONED IN AND UPDATED ON PATIENT STATUS. ORDERS RECIEVED. ASSESSMENT DONE. PROPOFOL GTT AT 65MCG/KG/MIN.
--- NOTE | 2020-07-20 16:32 | NUR ---
ABGS DRAWN, CHEST XRAY DONE. SUCTIONED FOR MOD AMOUNT OF THICK PRINCE SPUTUM.
--- NOTE | 2020-07-20 17:08 | NUR ---
ABG RESULTS, PH-7.47, PCO2-33, PO2-61,SAT-90. THESE RESULTS ARE ON VENT SETTING OF TV-500, FIO2-60,PEEP-5, AC-18, PIP 22.
--- NOTE | 2020-07-20 17:50 | NUR ---
vent setting changed. tv-400, PEEP-10, FIO2 60, AC-18, PIP-22. REMAINS ON PROPOFOL GTT AT 65 MCG/KG/MIN. IVF DECREASED TO 80. LEVAQUIN ORDERED.
--- NOTE | 2020-07-20 18:50 | NUR ---
MORE RESTLESS. PROPOFOL GTT INCREASED TO 70 MCG/KG/MIN.
--- NOTE | 2020-07-20 19:14 | NUR ---
DR. JACK AWARE OF INCREASE AGITATION, HYPOTENSION. ORDERS RECIEVED TO DECREASE PEEP TO 5. THIS DONE. DR. JACK WILL AD FENTANYL TO MEDICATIONS. REPORT TO NEXT SHIFT.
--- NOTE | 2020-07-20 20:15 | NUR ---
CALL TO DR JACK TO UPDATE REGARDING CONT LOW BPS, ORDER GIVEN TO START FENTANYL DRIP AND START TITRATING PROPOFOL DOWN. PROPOFOL TURNED DOWN FROM 75 TO 60MCG/KG/MIN. CURRENT RASS SCORE -3, BUT WHEN STIMULATED PT IMMEDIATLEY BECOMES VERY AGITATED, PULLING AT LINES AND TUBES AND DOES NOT RESPOND TO ATTEMPTS AT CALMING OR DIRECTION. FENTANYL DRIP STARTED AT 50MCG/HR.
--- NOTE | 2020-07-20 22:30 | NUR ---
PT WAKES UP, HAS EYES OPEN AND IS CALM, LOOKING AROUND, LOOKING AT RN'S. STARTS TO GAG ON HER ETT, SEDATION TURNED UP PT IS STARTING TO BREATHE ASYNCHONOUS WITH VENT, TRYING TO COUGH OUT TUBE. O2 SATS DROPPED FROM 95% TO 85%, SUCTIONING DONE WITH SMALL AMOUNT OF CLEAR SECRETIONS. LUNGS AUSCULATED, RIGHT SIDE DIM, COARSE SOUNDS THROUGHOUT. O2 SATS REMAIN IN MID 80'S, PT NOW SEDATED AND BREATHING WITH VENT. CALL TO RT AND DR JACK. DR JACK IN TO SEE PT, RT IN. ORDER GIVEN TO PULL TUBE OUT 1 CM, PROCEDURE DONE BY RT AND SATS INSTANTLY CAME BACK UP TO 96%. FIO2 HAD BEEN TURNED UP TO 100% IN ATTEMPT TO GET SATS UP, WILL START TO TITRATE BACK DOWN.
--- NOTE | 2020-07-21 00:02 | NUR ---
KETAMINE DRIP STARTED. FIO2 TURNED DOWN FROM 90% TO 80%, SPO2 97%. PIP27, TV 350, PEEP 10. PROPOFOL DRIP TURNED DOWN FROM 100 TO 75MCG/KG/HR.
--- NOTE | 2020-07-21 00:40 | NUR ---
RT IN TO DO ABG
--- NOTE | 2020-07-21 01:03 | NUR ---
RT IN DOING ORAL CARE. ETT SUCTIONING DONE, PT HAS GOOD COUGH/GAG REFLEX. MOVES EXTREMITIES OCCASIONALLY BUT OTHERWISE TOLERATES CARE ACTIVITES, REMAINS RESTFUL, NOT AGITATED. FENTANYL DRIP AT 100MCG/HR, PROPOFOL HAS BEEN TITRATED DOWN TO 50MCG/KG/MIN AND KETAMINE INFUSING AT 0.4MCG/KG/HR. CURRENT RASS SCORE -3.
--- NOTE | 2020-07-21 01:30 | NUR ---
NEW IV SITE STARTED IN LEFT FOREARM, IV SITE IN RIGHT ARM D/CD AND LEFT FOREARM DC/D. PT IS AWAKENING WITH IV POKES, ATTEMPTING TO PULL ARMS AWAY.
--- NOTE | 2020-07-21 02:15 | NUR ---
DR JACK CALLED AND TALKED TO RT REGARDING RECENT ABG RESULTS, PLAN TO KEEP VENT SETTINGS UNCHANGED FOR NOW AND REPEAT ABG. TV 350, FIO2 80% PEEP 10 AC 18.
--- NOTE | 2020-07-21 03:00 | NUR ---
PT HAS CONTINUED TO WAKE AT TIMES AND START TO GRAB FOR ETT, FENTANYL DRIP HAS BEEN TITRATED UP TO 300MCG/HR, PROPOFOL HAS BEEN AT 75MCG/KG/MIN AND KETAMINE AT 1 MCG/KG/HR. PEAK PRESSURES HAVE BEEN 24-26, VENT SETTINGS REMAIN UNCHANGED, FIO2 80%, PEEP 10, RATE 18, TV 350. BPS ARE IMPROVING SOME, LAST BP 102/74.
--- NOTE | 2020-07-21 05:32 | NUR ---
CALL TO DR JACK TO DISCUSS SEDAION/FLUIDS. ORDER GIVEN FOR 20 MG IV LASIX ONCE.
--- NOTE | 2020-07-21 06:04 | NUR ---
LAB IN TO DRAW BLOOD
--- NOTE | 2020-07-21 06:15 | NUR ---
OG TUBE PLACED. DR JACK ON UNIT, CHANGING SEDATION ORDERS CURRENTLY. PT CURRENTLY MOSTLY RESTFUL, AT TIMES OPENS EYES AND STARTS GAGGING ON ETT THEN BACK WITH EYES CLOSED.
--- NOTE | 2020-07-21 07:35 | NUR ---
KETAMINE DRIP TURNED OFF, VERSED DRIP STARTED. FENTANYL DRIP CURRENTLY AT 400MCG/HR AND PROPOFOL AT 65MCG/KG/MIN.
--- NOTE | 2020-07-21 07:45 | NUR ---
REPORT RECEIVED FROM SUPERVISOR INSPECTION DEPARTMENT RN. PATIENT RESTING ON VENT. WITH SETTINGS OF FI02 80%, VT 350 ML, PEEP 10, RR 18. PATIENT BEING STARTED ON VERSED GTT AND KETAMINE BEING D/C. PT REMAINS ON PROPOFOL, CURRENTLY AT 60 MCG/KG/MIN. IVF TOTAL VOLUME PER HOUR TO BE 125 ML/HR. OLIVEROS DRAINING DILUTE YELLOW URINE. LUNG SOUNDS ON RIGHT SIDE ARE MUCH MORE DIMINISHED THAN THE LEFT SIDE. RESTRAINTS IN PLACE BILATERALLY ON WRISTS FOR SAFETY. PT TO RECEIVE A PICC LINE TODAY. IV SITES FLUSHING WELL ON LEFT SIDE. CONTINUE TO MONITOR CLOSELY.
--- NOTE | 2020-07-21 09:22 | NUR ---
PATIENT MORE AWAKE AT THIS TIME AND NOTED TO BE MOVING ALL EXT. PT OPENING EYES. RASS SCORE CURRENTLY -1. PROPOFOL INFUSING AT 50 MCG/KG/MIN, VERSED INFUSING AT 4 ML/HR=2 MG/HR, FENTANYL INFUSING AT 150 MCG/HR. PT BREATHING 18-25 AT THIS TIME. PT TURNED TO RIGHT SIDE FOR COMFORT AND POSITIONED WITH PILLOWS. OG TUBE PUTTING OUT DARK BILE LIKE MATERIAL. LR INFUSING AT 50 ML/HR. WILL CONTINUE TO MONITOR.
--- NOTE | 2020-07-21 10:09 | NUR ---
RT IN ROOM AT THIS TIME. DISCUSSING WITH DR. JACK PLAN FOR DAY. OLIVEROS EMPTIED AND PUMPS CLEARED. PATIENT REMAINS MORE AWARE AND AWAKE BUT CALM - RASS AT -2. CONTINUE TO MONITOR.
--- NOTE | 2020-07-21 10:15 | NUR ---
Pt remains intubated. Will follow up tomorrow. Recieved call from [facility] for update.
--- NOTE | 2020-07-21 10:20 | NUR ---
PROPOFOL TITRATED DOWN TO 50 MCG/KG/MIN DUE TO DECREASE IN BLOOD PRESSURE.
--- NOTE | 2020-07-21 11:00 | NUR ---
PICC RN IN ROOM TO INSERT PICC LINE. PATIENT CONTINUES TO BE MORE AWAKE. EXPLAINED TO PATIENT PROCEDURE OF PICC INSERTION AND REASONS FOR BEING NEEDED. OLIVEROS CATH CARE PROVIDED PATIENT HAD A FOUL SMELLING GENITAL AREA. PATIENT SP02 IS 90% ON 70% AND PEEP OF 14. CONTINUE TO MONITOR.
--- NOTE | 2020-07-21 11:21 | NUR ---
PATIENT GIVEN PRN DOSE OF KETAMINE FOR AGITATION. PT ATTEMPTING TO GET OUT OF BED BY THROWING HER LEGS OVER THE EDGE. PT ALSO REACHING FOR ETT. PICC LINE RN WORKING ON ESTABLISHING PICC LINE.
--- NOTE | 2020-07-21 12:00 | NUR ---
ATTEMPTED TO PLACE PICC LINE IN RIGHT ARM. THE BASILIC, BRACHIAL, AND CEPHALIC VEINS WERE ALL IDENTIFIED ALONG WITH THE BRACHIAL ARTERY. ATTEMPTED ACCESS INTO THE BASILIC VEIN ONCE AND INTO THE BRACHIAL VEIN TWICE. BLOOD RETURN CAME FROM EACH IV SITE IN THE BRACHIAL VEIN. GUIDE WIRE ATTEMPTED ON BOTH AND UNABLE TO THREAD. GUIDE WIRE INTACT. ALL IV CATHETER ENDS INTACT. PRESSURE DRESSING APPLIED TO THE ARM. CHAD MORROW RN AND PEPE BUTLER RN AT THE BEDSIDE DURING ALL ATTEMPTS. CHAD MORROW RN AND PICC LINE NURSE TO ATTEMPT THE LEFT ARM.
--- NOTE | 2020-07-21 14:00 | NUR ---
PICC INSERTION NOTE: ASKED BY DR. JACK TO EVALUATE PATIENT FOR POTENTIAL PICC LINE PLACEMENT. PATIENT ON VENTILATOR AND HAS POOR IV ACCESS. PT HAS A HISTORY OF USING HEROIN AND POOR VASCULTATURE. BLAKE MONTALVO, PICC RN ATTEMPTS PICC LINE ON RIGHT SIDE BUT UNABLE TO ACCESS THE BASILIC AND BRACHIAL VEINS. EVALUATED PATIENT'S LEFT ARM USING SITE RITE U/S AND FOUND HER CEPHALIC AND BASILIC TO BOTH BE LARGE ENOUGH TO ACCOMODATE A 6 FR CATHETER. AFTER FOLLOWING CDC RECOMMENDED GUIDELINES FOR STERILE TECHNIQUE, THE CEPHALIC VEIN WAS EASILY ACCESSED ON THE FIRST ATTEMPT. BRISK, NON PULSATILE, DARK BLOOD WAS EASILY RETURNED. THE GUIDEWIRE WAS THEN ADVANCED WITHOUT DIFFICULTY. THE INTRODUCER AND PICC LINE WERE INSERTED AND THE [employer] MAGNET WAS USED TO VISUALIZE THE TIP ENTERING INTO THE CENTRAL VASCULATURE. A CHEST XRAY WAS TAKEN WHICH SHOWED THE TIP TO BE TOO FAR ADVANCED, AND THE CATHETER WAS PULLED BACK TO A TOTAL OF 7 CM EXPOSED. A REPEAT CHEST XRAY WAS TAKEN. PICC IS A 4 FR DUAL LUMEN. BLOOD IS EASILY ASPIRATED FROM BOTH LUMENS. IV SITES WERE D/C BELOW THE PICC LINE. EDUCATION MATERIAL WAS PLACED IN PATIENT'S CHART. PATIENT WAS UNABLE TO SIGN CONSENT FORM DUE TO BEING ON VENTILATOR, AND DR. JACK SIGNED CONSENT FORM FOR PATIENT TO HAVE THIS PICC LINE.
--- NOTE | 2020-07-21 14:35 | NUR ---
PT WITH A RASS OF +2, ATTEMPTING TO GET OUT OF BED. MEDICATED WITH 30 MG OF KETAMINE
--- NOTE | 2020-07-21 16:50 | NUR ---
PATIENT HAS BEEN HAVING INCREASED AGITATION AND RESTLESSNESS SINCE AROUND 1400. PATIENT GIVEN PRN DOSES OF KETAMINE, WELL TITRATION UP OF PROPOFOL TO 60 MCG/KG/MIN, FENTANYL UP TO 300 MCG/HR, AND VERSED UP TO 3 MG/HR (6 ML/HR). TOTAL IV FLUID VOLUME TO EQUAL AROUND 125 ML/HR. PICC LINE NOW IN LEFT UPPER ARM AND WORKING WELL. IV SITES D/C BELOW PICC. PATIENT HAS ATTEMPTED TO PULL ON HER ETT WHILE SHE WAS AWAKE AND IS VERY STRONG. THIS RN REMAINING AT BEDSIDE WITHIN ARMS REACH RIGHT NOW TO MONITOR PATIENT AND PREVENT HER FROM PULLING ETT. HR HAS BEEN ELEVATED, AROUND 110 AT THIS TIME, BUT OVERALL INCREASED SINCE AROUND 1200. PT REMAINS IN A SINUS RHYTHM. TEMP NOTED TO BE 101.9 AXILLARY, 99.6 ORAL, AND 101.[address] JACK AWARE AND ORDERS REC'D TO CONTINUE GIVING IV ABX AND ALSO DRAW A SET OF BLOOD CULTURES. ONE SET WILL BE DRAWN FROM PATIENT'S PICC LINE.
--- NOTE | 2020-07-21 17:47 | NUR ---
TUBE FEEDS STARTED AT 20 ML/HR INTO OG TUBE AT THIS TIME. FI02 TURNED DOWN TO 60%. SP02 CURRENTLY 94%. PT RESTING WELL. PROPOFOL INFUSING AT 60 MCG/KG/MIN, FENTANYL AT 300 MCG/HR, AND VERSED AT 3 MG/HR (6 ML/HR). BLOOD CULTURES DRAWN FROM PICC LINE AND ALSO FROM PERIPHERAL POKE PER LAB. HR 106 AT THIS TIME. TEMP 100.7 AXILLARY, 99.5 TEMPORAL. RESTRAINTS REMAIN IN PLACE AND SECURE. CONTINUE TO MONITOR CLOSELY.
--- NOTE | 2020-07-21 18:54 | PATH ---
[facility] [address] [facility] [address], [place] [address] Signed ORDERING PHYSICIAN: Fredy Joel MD PATIENT NAME: GABY STEWART GENDER: F : 1975 SPECIMEN(S): No Source Given MOLECULAR PATHOLOGY RESULTS: SARS-CoV-2 Not Detected ADDITIONAL NOTES.: The [place] Fusion SARS-CoV-2 Assay is a multiplex real-time PCR (RT-PCR) in vitro diagnostic test intended for the qualitative detection of RNA from SARS-CoV-2 from individuals who meet COVID-19 clinical and/or epidemiological criteria. In general, SARS-CoV-2 RNA can be detected during the acute phase of infection. Positive results indicate the presence of SARS-CoV-2 RNA. Clinical correlation with patient history and other diagnostic information is necessary to determine patient infection status. Positive results do not rule out bacterial infection or co-infection with other viruses. Negative results do not preclude SARS-CoV-2 infection and should not be used as the sole basis for patient management decisions. Negative results must be combined with other clinical observations, patient history, and epidemiological information. The [place] Fusion SARS-CoV-2 Assay is not yet approved or cleared by the [place] FDA. When there are no FDA-approved or cleared tests available, and other criteria are met, FDA can make tests available under an emergency access mechanism called an Emergency Use Authorization (EUA). The EUA for this test is supported by the [place] of Health and Human Service's (HHS's) declaration that circumstances exist to justify the emergency use of in vitro diagnostics for the detection and/or diagnosis of the virus that causes COVID-19. This EUA will remain in effect for the duration of the COVID-19 declaration justifying emergency of IVDs, unless it is terminated or revoked by FDA, after which the test may no longer be used. The [place] Fusion SARS-CoV-2 Assay is for use only under EUA in US laboratories certified under the Clinical Laboratory Improvement Amendments of 1988 (CLIA) to perform high complexity tests. [facility] is certified under CLIA to perform high complexity PATIENT NAME: GABY STEWART PATHOLOGY DATE OF : [birth year] REPORT #: [id number] PHYSICIAN: ECTOR VELEZ PCP: VIVIAN BRADY REPORT IS CONFIDENTIAL AND NOT TO BE RELEASED WITHOUT AUTHORIZATION [facility] [address] [place] [id number] Signed clinical laboratory testing. PERFORMING LABORATORY.: Molecular testing was performed by [facility] [address] [place], [place] [address], [place] [address] ([employer]: Erasmo Glynn D.O.; CLIA#: [id number]) Diagnostician: System Interface Pathologist Electronically Signed 07/21/2020 Copies: ~ PATIENT NAME: GABY STEWART PATHOLOGY DATE OF : [birth year] REPORT #: [id number] PHYSICIAN: ECTOR VELEZ PCP: VIVIAN BRADY REPORT IS CONFIDENTIAL AND NOT TO BE RELEASED WITHOUT AUTHORIZATION
--- NOTE | 2020-07-21 19:05 | NUR ---
PATIENT REMAINS CALM ON VENT AT THIS TIME. PROPOFOL AT 55 MCG/KG/MIN, VERSED AT 3 MG/HR (6 ML/HR), FENTANYL AT 250 MCG/HR, AND IVF AT 25 ML/HR.
--- NOTE | 2020-07-21 19:45 | NUR ---
REPORT RECEIVED FROM DAY SHIFT RN. PT IS RESTING ON VENT WITH SETTINGS TV 350, FIO2 60%, PEEP 14, AC 18 WITH PT CURRENLTY BREATHING 22 BPM. PROPOFOL INFUSING AT 55MCG/KG/MIN, VERSED AT 3MG/HR AND FENTANYL 200MCG/HR. RASS -3. LUNGS WITH RHONCHI ON BOTH SIDES, RIGHT SIDE SLIGHTLY MORE DIM THAN LEFT. OLIVEROS DRAINING CLEAR LIGHT YELLOW URINE, OG TUBE INPLACE WITH JEVITY RUNNING AT 20ML/HR. PT REPOSITIONED IN BED ONTO LEFT SIDE. BEATRICE CARE ACTIVITES WELL, OPENED EYES AT TIMES, OVERALL CALM AND RESTFUL.
--- NOTE | 2020-07-21 20:15 | NUR ---
RT IN DOING ORAL CARE AND CHECKING VENT SETTINGS.
--- NOTE | 2020-07-21 22:30 | NUR ---
PTS SATS HAVE BEEN IN HIGH 90'S. FIO2 TITRATED DOWN TO 55% AND NO CHANGE IN SATS NOTED.
--- NOTE | 2020-07-21 23:00 | NUR ---
PT REPOSITIONED UP IN BED
--- NOTE | 2020-07-22 00:07 | NUR ---
RT IN TO DO ORAL CARE/SUCTIONING. FIO2 TURNED DOWN TO 50%, CURRENT SATS 95%, ETCO2 45, PIP 27.
--- NOTE | 2020-07-22 01:24 | NUR ---
PT RESTING ON VENT, RASS -3. FIO2 HAS BEEN TITRATED DOWN TO 50%, PT BEATRICE WELL WITH SATS REMAINING 96-98%. PROPOFOL HAS BEEN TITRATED DOWN TO 50MCG/KG/MIN, VERSED AT 3MG/HR, FENTANYL AT 200MCG/HR. PT BREATHING WITH VENT AT THIS TIME. ETCO2 45.
--- NOTE | 2020-07-22 04:39 | NUR ---
PT REPOSITIONED, ORAL CARE AND ASSESSMENT DONE. RASS SCORE -2.
--- NOTE | 2020-07-22 05:27 | NUR ---
LAB IN TO DRAW
--- NOTE | 2020-07-22 06:57 | NUR ---
PROPOFOL HAD BEEN TURNED DOWN TO 40MCG/KG/MIN. PT WAS AROUSABLE AND CALM, ABLE TO FOLLOW DIRECTIONS AND MOVE WITH PURPOSE, WAS ABLE TO SQUEEZE HAND WITH FAIR AMOUNT OF STRENGTH WHEN ASKED TO, NODDING YES OR NO TO QUESTIONS ASKED. PT DID NOD YES THAT SHE WAS IN PAIN AND IS BECOMING MORE UNCOMFORTABLE LOOKING-MOVING LEGS IN BED- FENTANYL DRIP AND PROPOFOL DRIP TURNED BACK UP FOR PT COMFORT. PROPOFOL DRIP AT 60MCG/KG/MIN AND FENTANYL AT 250MCG/HR.
--- NOTE | 2020-07-22 07:15 | NUR ---
Report received, orders acknowledged
--- NOTE | 2020-07-22 08:00 | NUR ---
REPORT REC'D FROM NETWORK CONTRACTOR. PT RESTING CALMLY ON VENT AT THIS TIME. RT IN ROOM AND MAKING SOME CHANGES TO VENT SETTINGS AT THIS TIME. FI02 DOWN TO 40%, AND PEEP DOWN TO 10. SP02 STILL 94% AFTER THESE CHANGES. HR IN THE 80-90s. PROPOFOL TURNED DOWN TO 50 MCG/KG/MIN, FENTANYL DOWN TO 200 MCG/HR, AND VERSED DOWN TO 1 MG/HR (2 ML/HR). PT IS AT A RASS OF -4 AT THIS TIME. WILL CONTINUE TO LIGHTEN SEDATION. OLIVEROS DRAINED FOR 175 ML. MUCH BETTER AERATION AUSCULTATED ON RIGHT SIDE LUNG ASSESSMENT THIS AM COMPARED TO YESTERDAY. RESTRAINTS REMAIN IN PLACE AND SECURE. CONTINUE TO MONITOR.
--- NOTE | 2020-07-22 09:24 | NUR ---
RT IN ROOM PERFORMING WEANING TRIALS. PATIENT ON CPAP. HR IN THE 90s. ALL SEDATION MEDICATIONS OFF. PATIENT SIGNALING TO SIT UP MORE IN THE BED. PT TEARFUL AND ASKING QUESTIONS THROUGH LIP READING ABOUT WHAT HAPPENED. EXPLAINING TO PATIENT HER CURRENT CONDITION AND WHAT HAS BEEN GOING ON IN THE LAST COUPLE DAYS.
--- NOTE | 2020-07-22 09:42 | NUR ---
Dr. Shetty in room to assess patient
--- NOTE | 2020-07-22 09:47 | NUR ---
Patient extubated with Dr. Shetty, RT, and nursing staff in room. Patient SpO2 in the mid-90's following extubation with 2LNC in place. HR in the low 100's, RR ranging between 16-18. Patient takes several deep coughs producing moderate amounts of thick, white sputum. Patient suctioned to remove more thick, white sputum. Patient sitting up in bed with a calm demeanor. Patient encouraged to use voice as little as possible following extubation. Patient does request that nursing staff contact daughter. Patient tearful and uses tissue to wipe tears away. Patient restraints removed and patient uses ROM with upper extremities. This RN to remain at the bedside.
--- NOTE | 2020-07-22 11:00 | NUR ---
Patient up to chair with 2PA and FWW, unsteady on feet. 2LNC in place, SpO2 in the low 90's. Patient reports feeling "sore in my ribs." Pillow provided for patient to brace against when coughing. Intermittent coughing noted with productive thick, white sputum. Scheduled dose of 8 mg of buprenorphine given. Suction used to help remove secretions. Small sips of water provided, which patient tolerates without coughing or choking. Denies needs at this time. Call light within reach.
--- NOTE | 2020-07-22 11:30 | NUR ---
Patient's daughter in room visiting. 2LNC in place with SpO2 of 93%, RR in the mid 20's. HR in the low 100's. Clear liquid tray delivered. Patient able to tolerate eating meal without coughing or choking. Denies needs at this time, call light within reach.
--- NOTE | 2020-07-22 11:45 | NUR ---
In and spoke with pt. She has been extubated earlier. She is having difficulty speaking. Asked if she would like me to speak with family and she requests I call [facility]. Called friend and completed CM assessment. Pt lives at home with 3 children and boyfriend. Plans on returning to home when discharged. Friend plans on talking with her about counseling for A&D. I will follow up with them tomorrow to check if pt would like Peer to Peer support or [facility] A&D. Nurse from [facility] called for update.
--- NOTE | 2020-07-22 14:00 | NUR ---
PT SITTING IN BED AWAKE AND ALERT. PT WAS TAKEN OFF OF HER 2L 02 NC TO SEE IF SHE COULD MAINTAIN HER SPO2 LEVEL. PT HAS AN SPO2 AT ABOUT 92% AND A RESPIRATION RATE OF 25 ON ROOM AIR. WILL CONTINUE TO MONITOR THE PT.
--- NOTE | 2020-07-22 14:20 | NUR ---
PT SITTING IN CHAIR WITH DAUGHTER AT SIDE. ADMINISTRATION OF BUPRENORPHINE WAS TOLERATED WELL. PT STILL ON ROOM AIR AND SPEAKING TO DAUGHTER WITH SPO2 AT 91% WILL CONTINUE TO MONITOR
--- NOTE | 2020-07-22 14:21 | NUR ---
Patient sitting up in chair, visiting with daughter. Vital signs taken. Patient on RA with an SpO2 ranging from 91-93%. HR in the low 100's. Patient coughing intermittently with small amounts of thick white sputum. Denies needs, call light within reach.
--- NOTE | 2020-07-22 15:13 | NUR ---
PT UP TO RESTROOM WITH FWW AND 1 PA. STABLE ON FEET AND HAD VERY VERY LARGE UNMEASURED VOID IN TOILET. TOLERATED MOVEMENT WELL.
--- NOTE | 2020-07-22 16:05 | NUR ---
PT WAS AWAKE, SITTING UP IN BED AND USING SUCTION. PT WAS ON 2L O2 NC. SHE HAS BEEN PUT ON ROOM AIR AGAIN AND CURRENTLY HAS HAS A RESPIRATION RATE AROUND 25 AND HER SPO2 IS 91%. THE PT. REPORTS NO FURTHER NEEDS AT THIS MOMENT. WILL CONTINUE TO MONITOR.
--- NOTE | 2020-07-22 16:10 | NUR ---
Patient sitting up in bed watching tv. 2LNC in place with an SpO2 in the low 90's. HR in the low 100's. Patient reports feeling "sore in my ribs." Patient coughing intermittently, producing small amounts of thick white sputum. Patient encouraged to use a pillow to brace the abdomen while coughing. Denies needs at this time, call light within reach.
--- NOTE | 2020-07-22 16:10 | NUR ---
ASSISTED TO GET BACK TO BED. TOLERATED WELL. PT SORE ESPECIALLY WHEN SHE COUGHS OR LAYS ON HER SIDE. CALL LIGHT IN REACH. BLINDS CLOSED PER REQUEST. DAUGHTER WENT HOME. TAUGHT PT HOW TO USE BUTTONS ON BED AND AGAIN HOW TO USE SUCTION.
--- NOTE | 2020-07-22 16:53 | NUR ---
PT AWAKE AND LAYING IN BED. PICC LINE FLUSHED PER PROTOCOL AND HEPARIN LOCKED. PT WILL BE SWITCHED OVER FROM A NC TO AN OXY MASK. O2 WILL BE RUNNING AT 3L. SPO2 IS CURRENTLY AT 92% WITH OXYMASK. PT IS COMPLAINING OF RIB/CHEST PAIN, SCHEDULED PAIN MEDICATION TO BE GIVEN (SEE MAR). WILL CONINTUE TO MONITOR.
--- NOTE | 2020-07-22 18:23 | NUR ---
Called and spoke with Dr. Shetty on the phone, new orders acknowledged.
--- NOTE | 2020-07-22 18:45 | NUR ---
Patient sitting up in chair visiting with daughter. Patient using IS and acapella. Small amounts of thick white sputum produced and suctioned. Diet pepsi provided per patient request. 2LNC in place with an SpO2 of 93%. Patient denies further needs at this time, call light within reach.
--- NOTE | 2020-07-22 20:20 | NUR ---
ENTERED ROOM AT 1945 SHE WAS SITTING IN THE CHAIR COUGHING WITH SUCTION IN HAND. SHE COUGHED UP A MODERATE AMT OF SPUTUM. PT THEN HAD ASSISTANCE TO WALK AROUND THE ROOM, SHE DID HAVE SOME SOB AND COUGHED UP MORE SPUTUM. BACK ON SPO2 PT WAS IN THE LOW 80'S. INCREASED PT'S O2 AND HAD HER USE IS. SHE COUGHED UP MORE SPUTUM. PT IS BREATHING THROUGH HER MOUTH ALOT EVEN WITH CUES TO TAKE A DEEP BREATH IN THROUGH HER NOSE AND OUT THROUGH HER MOUTH. SWITCHED HER TO OXYMASK AND INCREASED O2 TO 5LNC TO MAINTAIN LOW 90'S SAT. PT DENIES FURTHER NEEDS AT THIS TIME. DAUGHTER IS IN ROOM WITH HER AND CALL LIGHT IS CLOSE.
--- NOTE | 2020-07-22 20:27 | NUR ---
PT'S O2 SAT DROPPED INTO UPPER 70'S SHE HAD PULLED HER MASK DOWN. MASK IS BACK ON AND SHE IS IN UPPER 80'S. CALLED RT TO COME TAKE A LOOK AT HER.
--- NOTE | 2020-07-22 20:37 | NUR ---
RT ASSESSED PT AND INCREASED HER O2 TO 6L OM.
--- NOTE | 2020-07-22 21:18 | NUR ---
ADMINISTERED MEDICATIONS ALONG WITH ZOFRAN FOR NAUSEA. PT DENIES WANTING TO MOVE OVER TO BED YET. BLOOD SUGAR IS WNL NO HUMALOG REQUIRED. PT DENIES FURTHER NEEDS AT THIS TIME. DAUGHTER IS IN ROOM AND CALL LIGHT IS CLOSE.
--- NOTE | 2020-07-22 21:45 | NUR ---
PT WANTED HELP TO LAY DOWN IN BED BUT IT WAS TOO UNCOMFORTABLE ON HER CHEST. ASSISTED HER BACK TO THE CHAIR. SHE HAS TO BE IN AN UPRIGHT POSITION TO KEEP HER PAIN LOWER. SHE IS TAKING IN SHALLOW RESPIRATIONS AND REACHES RR OF 30'S AT TIMES. CALLED DR JACK TO SEE ABOUT GETTING AN ORDER FOR TORADOL OR ANOTHER PAIN MED. HE WILL PLACE AN ORDER FOR SOMETHING.
--- NOTE | 2020-07-22 22:11 | NUR ---
INCREASED PT'S O2 TO 15LOM. ALSO ADMINISTERED TORADOL FOR 10/10 PAIN. PT IS IN CHAIR WITH FEET RECLINED. CALL LIGHT AND SUCTION ARE CLOSE. PT DENIES FURTHER NEEDS.
--- NOTE | 2020-07-22 22:15 | NUR ---
PT CALLED WANTING HER FEET BACK DOWN IN THE RECLINER. SHE DENIES FURTHER NEEDS. CALL LIGHT IS CLOSE.
--- NOTE | 2020-07-22 22:18 | NUR ---
PT CALLED WANTING A NEW SUCTION TIP, SHE JUST USED SUCTION AND IT IS GETTING CLOGGED. SHE HAS A FRESH ONE AND IS AT 92%15 LOM. CALL LIGHT IS CLOSE.
--- NOTE | 2020-07-22 22:41 | NUR ---
IN ROOM TO ADMINISTER VISTARIL FOR ANXIETY. PT IS BEING PLACED ON CPAP AND IS ANXIOUS ABOUT IT BUT SHE IS AT 15L OM AND BOUNCING BETWEEN 85% TO 91%. SHE IS NOW BACK IN BED WITH CPAP ON.
--- NOTE | 2020-07-22 23:45 | NUR ---
PT CALLED WANTING TO GET OUT OF BED AND BACK TO THE CHAIR TOOK BIPAP OFF WHILE MOVING HER AND PUT OM BACK ON AT 15L. MOVED CHAIR CLOSER TO BIPAP AND PT IS COUGHING AND SUCTIONING AT THIS TIME. WILL PUT BIPAP BACK ON SORTLY. CALL LIGHT IS CLOSE.
--- NOTE | 2020-07-23 00:03 | NUR ---
R.T. STATES THAT PT FEELS A COUGHING FIT COMING ON AND WANTS TO WAIT ON PUTTING THE BIPAP BACK ON. SHE IS ON 15L OM AT 90%.
--- NOTE | 2020-07-23 00:20 | NUR ---
ASKED PT IF SHE IS READY TO WEAR BIPAP, SHE DOES NOT WANT TO WEAR IT YET STATING SHE IS STILL COUGHING STUFF UP. SHE DENIES FURTHER NEEDS. CALL LIGHT IS CLOSE.
--- NOTE | 2020-07-23 00:50 | NUR ---
ASSISTED PT TO THE RESTROOM AND BACK TO CHAIR. O2 SAT DROPPED TO UPPER 70'S TO 80'S WITH THE OM AT 15L. ENCOURAGED PT TO WEAR BIPAP AND SHE AGREED. CALL LIGHT IS CLOSE.
--- NOTE | 2020-07-23 01:30 | NUR ---
PT NEEDED TO USE SUCTION REMOVED BIPAP. SHE WANTED TO WALK AROUND BUT WHEN SHE WAS UP TO THE RESTROOM LAST TIME HER O2 DROPPED QUICKLY. INSTEAD SHE JUST STOOD UP WITH WALKED AND SHUFFLED HER FEET BACK AND FORTH. HER O2 SAT DROPPED TO LOW 80'S. SHE USED THE ACAPELLA AND IS NOW SITTING IN CHAIR WITH 15L OM. SHE WANTS A LITTLE BREAK FROM BIPAP WILL RETURN AT 0200 TO PUT IT BACK ON.
--- NOTE | 2020-07-23 02:12 | NUR ---
ATTEMPTED TO GET PT TO WEAR BIPAP. SHE DOES NOT WANT TO RIGHT NOW BECAUSE SHE FEELS LIKE SHE IS GOING TO HAVE TO KEEP TAKING IT OFF TO COUGH UP SPUTUM. SHE HAS SUCTION IN HAND AND IT SITTING UPRIGHT ON RECLINER BECAUSE SHE STATES SHE CANNOT LAY DOWN OR SHE FEELS LIKE SHE IS GOING TO COUGH UP MORE SPUTUM. ENCOURAGED PT TO COUGH/DEEP BREATH AND USE ACAPELLA. DENIES NEEDS AT THIS TIME CALL LIGHT IS CLOSE.
--- NOTE | 2020-07-23 04:13 | NUR ---
PT IS AWAKE IN CHAIR, STILL ON 15L OM. TALKED TO PT ABOUT WEARING BIPAP AND SHE DECLINES. EDUCATED ON HOW IT IS HELPFUL. HAD PT USE ACAPELA. SHE CONTINUES TO SIT UPRIGHT IN RECLINER AND CANNOT LAY BACK WITHOUT FEELING UNCOMFORTABLE IN HER CHEST LIKE SHE NEEDS TO COUGH SOMETHING UP. PT STATES SHE IS ANXIOUS ABOUT HER BREATHING, ADMINISTERED VISTARIL. SHE DENIES FURTHER NEEDS. CALL LIGHT IS CLOSE.
--- NOTE | 2020-07-23 04:57 | NUR ---
PT CALLED TO SAY SHE IS COUGHING. ENCOURAGED HER TO BREATHE DEEPER AND TRY TO COUGH MORE TO CLEAR THE MUCUS OUT. SHE STATES SHE IS TRYING. FRESH ICEWATER PROVIDED AND PT DENIES FURTHER NEEDS. CALL LIGHT IS CLOSE.
--- NOTE | 2020-07-23 05:21 | NUR ---
PT CALLED TO SAY SHE IS COUGHING MORE SPUTUM UP. PROVIDED EMESIS BAG FOR PT TO SPIT IN IF NECESSARY. PT DENIES FURTHER NEEDS, CALL LIGHT IS CLOSE.
--- NOTE | 2020-07-23 05:27 | NUR ---
PT WAS UNABLE TO SLEEP ALL NIGHT FEELING LIKE SHE NEEDS TO SIT UP STRAIGHT IN THE RECLINER. SHE STARTED THE NIGHT ON 2LNC AND DESATED MULTIPLE TIMES REQUIRING AN INCREASE IN O2. SHE ENDED THE NIGHT ON 15L OM. SHE REFUSED THE BIPAP FOR MOST OF THE NIGHT BUT DID WEAR IT TWICE FOR ABOUT 1 HR AND 45 MIN TOTAL. TORADOL WAS ADDED FOR PAIN AND VISTARIL FOR ANXIETY. SHE DESATS WHEN UP TO THE USE THE RESTROOM.
--- NOTE | 2020-07-23 05:40 | NUR ---
PT CALLED FOR HELP WITH OXYMASK, SHE GOT SPUTUM IN IT. SWITCHED HER OVER TO 5LNC WHILE GETTING IT CLEANED UP. SHE IS AT 90% ON 5L NC AND WE WILL KEEP HER ON THIS SO SHE CAN SPIT THE SPUTUM UP EASIER. SHE DENIES FURTHER NEEDS AT THIS TIME, CALL LIGHT IS CLOSE.
--- NOTE | 2020-07-23 06:13 | NUR ---
ADMINISTERED TORADOL FOR 8/10 PAIN. PT DENIES NEEDING TO USE THE BSC AT THIS TIME. SHE CONTINUES O SPIT UP SPUTUM. SHE DENIES FURTHER NEEDS AT THIS TIME. SHE IS DOING WELL ON 5LNC STAYING BETWEEN 89-95% WHICH CHANGES QUICKLY.
--- NOTE | 2020-07-23 06:33 | NUR ---
PT'S BP CUFF SLID DOWN AND WAS GIVING STRANGE READINGS. READJUSTED BP CUFF AND IT IS NOW WNL. LOWERED O2 TO 4 LNC AND PT IS AT 90-91%. SHE HAS FRESH WATER AT BEDSIDE AND DENIES FURTHER NEEDS. CALL LIGHT IS CLOSE.
--- NOTE | 2020-07-23 07:15 | NUR ---
Report received, orders acknowledged. Patient sitting up in chair with 4LNC in place, SpO2 in the low 80's. 10L oxymask put on patient, SpO2 increases to 93%. Patient reports visual hallucination, stating "I see my daughter outside my room on the hill." Breakfast ordered, patient denies needs. Call light within reach.
--- NOTE | 2020-07-23 07:57 | NUR ---
PATIENT HAD 200 OUT OF URINE. VERY DARK LOOKING. EMERSON HINOJOSA NOTIFIED. BACK TO CHAIR. CALL LIGHT WITHIN REACH. NO FURTHER NEEDS AT THIS TIME.
--- NOTE | 2020-07-23 08:15 | NUR ---
Patient sitting up in chair. Breakfast delivered. 10L oxymask in place, with an SpO2 of 96%. Oxygen titrated to 8L oxymask, SpO2 remains in the low 90's. Vital signs taken, assessment complete. AM medications given. BG of 116, no insulin required. Patient denies visual hallucinations at this time, states "I don't see my daughter outside my room on the hill anymore." Lung sounds coarse with rhonchi noted in bases. Patient denies needs at this time, call light within reach.
--- NOTE | 2020-07-23 08:23 | NUR ---
PATIENT HAS CONCERNS OF "SEEEING THINGS" SAYS SHE HAS BEEN SEEING HER DAUGHTER MARCHING IN THE FEILD OUTSIDE HER WINDOW WITH THE FAMILY DOG. EMERSON HINOJOSA NOTIFIED AND FOLLOWING UP CURRENTLY.
--- NOTE | 2020-07-23 10:00 | NUR ---
Patient leaves unit to imaging for chest CT
--- NOTE | 2020-07-23 10:27 | NUR ---
Patient returns to room from CT. Patient requiring 15L oxymask during transport to maintain saturations above 90%. Once back in room, patient put on 12L oxymask to maintain saturations above 90%. HR in the upper 90's. Manual BP taken, 104/58. Patient sitting up in chair with occasional nonproductive cough noted. 5% of breakfast eaten, strawberry ensure provided. Water refreshed, patient denies further needs at this time. Call light within reach.
--- NOTE | 2020-07-23 10:30 | NUR ---
Spoke karol Winchester. She is more awake today. Discussed A&D counseling and she would like to return to Dr El's office. Informed I will contact and set appt.
--- NOTE | 2020-07-23 11:32 | NUR ---
RT in room to administer neb tx. Patient sitting up in chair with vest on performing chest physiotherapy.
[2020-07-23] MEDS ORDERED: ATIVAN0.5 MG PO (11:56)
--- NOTE | 2020-07-23 12:00 | NUR ---
Patient put on CPAP, SpO2 in the mid-90's. Patient sitting up in chair watching tv. Lunch delivered, patient ate 10% of meal. Water refreshed, patient denies needs at this time. Call light within reach.
[2020-07-23] MEDS ORDERED: CLARITIN10 MG PO (12:02)
[2020-07-23] MEDS ORDERED: VITAMIN D3125 MC1 PO (12:03)
[2020-07-23] MEDS ORDERED: PROAIR HFA8.5 GM PO (12:07)
--- NOTE | 2020-07-23 14:30 | NUR ---
Patient sitting up in chair with bipap in place with settings at 12/6 with an SpO2 in the mid-90's. 30 mg of toradol given for pain of 8/10. Patient feels clammy to the touch, temperature taken of 98.5. Patient is oriented to situation, place, and event. Denies visual hallucinations as noted in previous assessments. Patient denies needs at this time, call light within reach.
--- NOTE | 2020-07-23 16:19 | NUR ---
Was able to reach Dr. El's office [facility]. Notified of pt's admission. Pt was see last Tuesday. They request chart and her A&D counselor will call her today or tomorrow and set appt.
--- NOTE | 2020-07-23 18:31 | NUR ---
Patient sitting up in chair watching tv. Daughter in room at bedside. Patient removes bipap machine in order to cough up productive sputum, which is thick and mars. 12L oxymask in place while patient coughing, SpO2 in the low 90's. Patient up to BSC with 1PA. Returns to chair with 1PA.
--- NOTE | 2020-07-23 20:20 | NUR ---
SHIFT REPORT RECEIVED FROM EMERSON HINOJOSA. PT IS ALERT/ORIENTED, SITTING UP IN CHAIR. REPORTS 8/10 RIB AND CHEST PAIN, SCHEDULED BUPRENORPHINE GIVEN. LUNGS CLEAR, DIM, BIPAP AT 12/6 WITH 10L O2 BLED IN, REMOVED AT THIS TIME FOR EVENING MEDICATIONS AND PLACED ON 15L OXYMASK. HR REGULAR, RATE LOW 100'S. BOWEL TONES ACTIVE, REPORTS MILD NAUSEA, PRN ZOFRAN GIVEN. SKIN GROSSLY INTACT, SCATTERED BRUISES AND SCRATCHES PRESENT. PICC TO LEFT UPPER ARM, DRESSING C/D/I, BLOOD RETURN PRESENT, FLUSHES WITHOUT RESISTANCE. PT'S DAUGTHER INTO VISIT, PT REQUESTS TO STAY ON OXYMASK FOR NOW. CALL LIGHT WITHIN REACH, NO FURTHER REQUESTS AT THIS TIME.
--- NOTE | 2020-07-23 22:15 | NUR ---
PT CALLED TO REQUEST TO BE PLACED BACK ON BIPAP, SETTINGS AT 12/6 WITH 10L BLED IN. LIGHTS TURNED OFF PER REQUEST. PAIN REMAINS UNCHANGED AT 07/07, PT STATES SHE FEELS CLAMMY/HOT, ORAL TEMP 99.0, PRN TORADOL GIVEN AT THIS TIME. R.T. IN TO GIVE MEDICATIONS AND PERFORM CPT.
--- NOTE | 2020-07-23 23:23 | NUR ---
PATIENT CALLED, RN INTO ROOM. BIPAP OFF PER PATIENT REQUEST. PT STATES SHE NO LONGER WANTS TO RECIEVE MYCOMIST NEB TREATMENTS. PT STATES " I REFUSE THEM FROM NO ON, THAT IS MY RIGHT." ADVISED PT WILL LET PRIMARY RN KNOW. PATIENT ASSISTED UP TO BSC, STANDBY ASSIST. TOLERATED FAIR, PT SOB WITH EXERTION. 02 DESAT TO 72% ON RA, 02 VIA NC APPLIED AND SAT MONITOR ADJUSTED. PT ASSISTED BACK TO CHAIR. NO FURTHER NEEDS AT THIS TIME, CALL LIGHT IN REACH.
--- NOTE | 2020-07-24 00:15 | NUR ---
ASSESSMENT COMPLETED. PT STATES PAIN IS TOLERABLE AT THIS TIME. REMAINS ON BIPAP, 12/6 WITH 10L O2 BLED IN. LUNGS ARE COARSE WITH EXPIRATORY WHEEZES IN THE UPPERS AND DIM IN THE BASES. HR SINUS RHYTHM, RATE IN 90'S. BOWEL TONES ACTIVE, DENIES NAUSEA. SKIN UNCHANGED. PICC DRESSING REMAINS C/D/I, FLUIDS INFUSING WNL. NO FURTHER REQUESTS AT THIS TIME, CALL LIGHT WITHIN REACH.
--- NOTE | 2020-07-24 01:30 | NUR ---
PT UP TO BS, VOIDED 75ML CONCENTRATED URINE AND RETURNED TO CHAIR. WHILE UP, PT PLACED ON 6L O2 VIA NC AND ONCE BACK IN CHAIR, BIPAP BACK IN PLACE. PT DENIES FURTHER REQUESTS.
--- NOTE | 2020-07-24 04:12 | NUR ---
ASSESSMENT COMPLETED, UNCHANGED FROM PREVIOUS. PT STATES PAIN IS TOLERABLE AT THIS TIME, REPORTS THAT IT IS ALWAYS 7/10. BIPAP 12/6 WITH 10L BLED IN REMAINS IN PLACE, LUNGS COARSE IN UPPERS, DIM IN BASES. PICC DRESSING C/D/I, CONTINUES TO HAVE BLOOD RETURN AND FLUSH WITHOUT RESISTANCE, FLUIDS INFUSING WNL. PT REMAINS WARM AND SOMEWHAT CLAMMY, AFEBRILE. PT DENIES REQUESTS AT THIS TIME, CALL LIGHT WITHIN REACH.
--- NOTE | 2020-07-24 06:12 | NUR ---
PT REMOVED BIPAP TO TAKE A BREAK, PLACED ON 6L NC. PT REPORTS 7/10 PAIN TO CHEST AND RIBS, PRN TORADOL GIVEN. PT REMAINS SITTING UP IN CHAIR, CALL LIGHT AND BELONGINGS WITHIN REACH.
--- NOTE | 2020-07-24 07:53 | NUR ---
Patient sitting up in recliner, watching TV at this time. States pain is "the same." States that she is feeling a little bit better today. Call light in reach. Denies other needs at this time. Assessment completed.
--- NOTE | 2020-07-24 08:42 | NUR ---
Remains sitting up in recliner at this time. Poor pleht to pulse ox reading this AM, Pulse ox changed at this time. Pleth much improved with O2 saturation 93% at this time. AM medications administered as prescribed. Denies other needs at this time. Call light in reach.
--- NOTE | 2020-07-24 10:02 | NUR ---
Assist patient to bathroom per request. Continent of urine. Minimal shortness of breath with exertion. Remains on O2 per NC at 6L/min. Returns to recliner. Alert and oriented, remains without hallucinations this AM. Educated on increase in Zoloft and initiation of lovenox. Verbalizes understanding, repeats back education.
--- NOTE | 2020-07-24 10:37 | NUR ---
Report given to Lissa Smith RN med/surg unit.
--- NOTE | 2020-07-24 10:50 | NUR ---
Taken to med/surg room 119 via chair on 6L/min NC O2 with this nurse. Handed care off to Lissa Smith RN.
--- NOTE | 2020-07-24 11:00 | NUR ---
PT ARRIVED FROM CCU. REPORT RECEIVED FROM EMERSON GERMAN. PT UP TO CHAIR, REPORTS SHE IS MOST COMFORTABLE IN CHAIR. PT REPORTS 7-8/10 PAIN STATING PAIN IS "ALWAYS ABOUT A 7 OR 8." PT DENIES NAUSEA. LUNG SOUNDS CORSE. ATTMEPTED TO WEAN O2 TO 5L PT DROPS TO 88% ON 5 LITERS. PT REMAINS ON 6 LITERS AT THIS TIME WITH O2 SATURATIONSA AMANDA 92%. I.S. USE DEMONSRATED REACHING 500ML. +2 PITTING EDMA NOTED TO BILATERAL LOWER EXTREMITIES. BOWEL TONES ACTIVE. PT REPORTS SHE HAS ORDERED LUNCH. PT ORIENTED TO ROOM AND UNIT. PT DEMONSTRATES USE OF CALL LIGHT. NO ADDITIONAL REQUESTS OR COMPLAINTS. CALL LIGHT WITHIN REACH.
--- NOTE | 2020-07-24 12:06 | NUR ---
PT CALL LIGHT ON. PT REPORTS SHE IS GETTING UP TO SHOWER NOW. tHIS RN TO ROOM. PT FOUND UP IN ROOM WITH OXYGEN OFF. EDUCATION DONE WITH PT REAGARDING LEAVING OXYGEN ON AT ALL TIMES. PT GUIDED BACK TO CHAIR. PT AGREES TO SHOWER WITH SALES ENGAGEMENT MANAGER OR THIS RN AFTER SHE FINISHES LUNCH. CHAIR ALARM PLACED. CALL LIGHT WITHIN REACH. NO ADDITIONAL REQUESTS OR COMPLAINTS.
--- NOTE | 2020-07-24 12:51 | NUR ---
THIS RN TO ROOM TO CHECK ON PT. PT WORKING WITH JOSESITO MARTIN, FOR SHOWER. NO REQUESTS OR COMPLAINTS.
--- NOTE | 2020-07-24 13:17 | NUR ---
PT FINISHED WITH SHOWER. PT BACK TO BED. OXYGEN IN PLACE. PT FREQUENTLY TAKING NASAL CANULA OFF, EDUCATION DONE WITH PT REGARDING LEAVING OXYGEN IN PLACE. PT VERBALIZES UNDERSTANDING. HYMIDFIER ADDED TO OXYGEN. RT TO BEDSIDE FOR BREATHING TREATMENT. WARM BLANKETS PROVIDED. PT REPOSITIONED IN BED. PILLOWS FOR COMFORT. NO ADDITIONAL REQUESTS OR COMLAINTS AT THIS TIME. CALL LIGHT WITHIN REACH.
--- NOTE | 2020-07-24 14:12 | NUR ---
PT CALL LIGHT ON. PT REQUESTS PAIN MEDICATION FOR 8/10 RIB PAIN. SEE MAR FOR MEDICATION GIVEN. NETWORK SYSTEMS INTEGRATOR AT BEDSIDE FOR VITALS. PT HAS YET TO VOID SINCE TRANSFER FROM CCU. PT DENIES NEED TO VOID AT THIS TIME. WILL CONTINUE TO MONITOR. WARM BLANKETS AND HEAT PACK PROVIDED PER PT REQUEST. NO ADDITIONAL REQUESTS OR COMPLAINTS. CALL LIGHT WITHIN REACH. BED ALARM ON.
--- NOTE | 2020-07-24 14:51 | NUR ---
THIS RN TO ROOM TO CHECK ON PT. HOB AT 60 DEGREES. PT EATING LUNCH. PT CONTINUES TO REPORT 8/10 PAIN AND REPORTS ANXIETY. PT STATES SHE HAS BEEN ON THE PHONE WITH HER COUNSELOR FROM THE [facility]. MEDICATION FOR ANXIETY OFFERE. PT ACCEPTS. PT CONTINUES EATING LUNCH. NO ADDITIONAL REQUESTS OR COMPLAINTS. CALL LIGHT WITHIN REACH.
--- NOTE | 2020-07-24 16:45 | NUR ---
AFTERNOON ASSESSMENT AND MEDICATION DUE. THIS RN TO ROOM. PT RESTING IN BED WITH EYES CLOSED. RESPIRATIONS EVEN AND UNLABORED. PT AWAKENS TO VOICE AND TOUCH. PT REPORTS 8/10 RIB PAIN AND DENIES NASUEA. SEE MAR FOR MEDICATION GIVEN. ASSESSMENT DONE. LUNG SOUNDS CLEAR IN UPPER LOBES. PT DEMONSTRATES USE OF I.S. REACHING 750ML. PT REMAINS ON 6L O2 BY NC. 1PERSON ASSIST UP TO RESTROOM. PT VOIDS WITHOUT ISSUE. PT BACK TO BED. POSIITONED WITH PILLOWS. PT ASSISTED WITH PLACING DINNER ORDER. NO ADDITIONAL REQUESTS OR COMPLAINTS. CALL LIGHT WITHIN REACH. WARM BLANKETS PROVIDED.
--- NOTE | 2020-07-24 18:14 | NUR ---
PT TRANSFERED THIS SHIFT FROM CCU, HERE POST HEROIN OVERDOSE WITH ONGOING PNEUMONIA. 1 PERSON ASSIST. BIPAP AT BEDSIDE FOR USE AT NIGHT. WITH FRONT WHEEL WALKER UP TO CHAIR AND UP FOR SHOWER. PT REMAINS ON 6L O2 BY NC. OXYGEN SATURATIONS IN THE LOW 90'S. PICC LINE WNL. SALINE LOCKED AT THIS TIME. PRN PAIN MEDICATION GIVEN FOR RIB PAIN. PRN ANXIETY MEDICAITON GIVEN. PT VOIDING QUANTITY SUFFICIENT. PT USES CALL LIGHT INTERMITTANTLY, BED/CHAIR ALARM USED.
--- NOTE | 2020-07-24 18:21 | NUR ---
THIS RN TO BEDSIDE TO CHECK ON PT. PT CONTINUES TO REPORTS 7/10 PAIN IN RIBS. PT ASKED IF SHE UNDERSTANDS WHAT HAPPENED AND WHY SHE IS HERE. PT STATES "WELL I AND NOW YOU GAVE ME COVID." PTS CONDITION EXPLAINED TO PT. PT VERBALIZES UNDERSTANDING AND STATES "THATS WHY THERE IS THIS CLICKING IN MY CHEST." REPOSITOINING OFFERED TO PT. PT DECLINES. WARM PACK OFFERED. PT ACCEPTS WARM PACK. PT WATCHING TV AND VISITING WITH FIRNED. NO ADDITIONAL REQUESTS OR COMPLAINTS. CALL LIGHT WITHIN REACH. BED RAILS UP. BED ALARM ON.
--- NOTE | 2020-07-24 19:00 | NUR ---
FITNESS/WELLNESS DIRECTOR COMES TO FIND THIS RN STATING THE PT SAID SHE WAS LEAVING WITH HER FRIEND "TO GO GET COOKIES." THIS RN IMMEDIATLY TO ROOM. PT GONE FROM ROOM. CHARGE NURSE FOUND AND UPDATED. JOSESITO MARIE SENT TO LOOK THROUGHOUT HOSPITAL FOR PT. PT FOUND BY JOSESITO IN MAIN HALLWAY. NO OXYGEN IN PLACE. NO MEDICAL STAFF PRESENT. PT GUIDED BACK TO ROOM. THIS RN TO ROOM TO TALK WITH PT. PT ADVISED THAT LEAVING THE ROOM CAN BE VERY DANGEROUS FOR HER ESPICIALLY WITHOUT HER OXYGEN. PT STATES "THE DOCTOR TOLD ME I CAN WALK IN WHATEVER HALLWAY I WANT AND I WANTED TO GO WITH MY FRIEND TO GET COOKIES." PT TOLD THAT IN THE FUTURE STAFF CAN PROVIDE HER WITH SNACKS AND THAT IF SHE WOULD LIKE TO GO FOR A WALK MEDICAL STAFF NEED TO BE WITH HER AND SHE WILL NEED HER OXYGEN FOR BEST HEALING. PT VERBALIZES UNDERSTANDING BUT CONTINUES TO STATE "THE DOCTOR TOLD ME I CAN GO WHERE I WANT." PT BACK TO BED. STAFF AT BEDSIDE. HAND OFF REPORT GIVEN TO EMERSON CARMONA. CALL LIGHT WITHIN REACH. BED ALARM ON.
--- NOTE | 2020-07-24 20:00 | NUR ---
PER PT REQUEST I GAVE HER A NEW HEATPACK. SHE NEEDS NOTHING MORE AT THIS TIME.
--- NOTE | 2020-07-24 21:06 | NUR ---
WHEN PT WENT TO SIT IN THE CHAIR HER CHAIR ALARM KEPT BEEPING. SHE DID NOT WANT TO GET UP SO I COULD ADJUST IT DUE TO HER PAIN BEING SO HIGH. I WAS NOT ABLE TO SET THE ALARM WITH OUT IT BEEPING. I LEFT IT NOT SET.
--- NOTE | 2020-07-24 23:15 | NUR ---
PATIENT SITTING UP IN CHAIR ON HER 6L/NC, EYES CLOSED RESPIRATIONS REGULAR AND EVEN, CALL LIGHT IN REACH, CHAIR ALARM ON, PATIENT HAD DECIDED TO SLEEP IN THE CHAIR TONIGHT.
--- NOTE | 2020-07-25 01:16 | NUR ---
PATIENT CONTINUES TO REST QUIETLY IN HER CHAIR, CALL LIGHT IN REACH, RESPIRATIONS SHALLOW, BUT REGULAR, REMAINS IN 6L/NC.
--- NOTE | 2020-07-25 03:18 | NUR ---
PATIENT HAD VISTARIL REPEATED AND 5MG COMPAZINE FOR NAUSEA AND PATIENT STAYING UP IN THE CHAIR, SHE IS NOT ABLE TO LAY DOWN IN THE BED, JUST TOO UNCOMFORTABLE. CALL LIGHT IN REACH.
--- NOTE | 2020-07-25 04:50 | NUR ---
PATIENT REMAINS ON 6L/NC, BUT HAS NOT TRIED TO LEAVE THE [place] ON THIS SHIFT SO FAR. PATIENT SAYS SHE IS TO TENDER TO TRY AND LAY IN BED, WILL NOT ELEVATE HER FEET, REFUSES BIPAP AND HER BREATHING TREATMENTS. HAS BEEN GIVEN TORADOL, VISTARIL, AND COMPAZINE [place] THE NIGHT TO TRY AND KEEP HER COMFORTABLE, BUT PER SHEET CUTTING OPERATOR STAFF SHE HAS NOT BEEN VERY COOPERATIVE. CALL LIGHT IN REACH AND PATIENT REMAINS IN THE BEDSIDE ARM CHAIR WITH CALL LIGHT IN REACH.
--- NOTE | 2020-07-25 05:56 | NUR ---
IN ROOM TO TAKE VS & ENTER I&O'S WITH DAVID BELT MAKER HELPER, PT DENIES FURTHER NEEDS. CALL LIGHT IS CLOSE.
--- NOTE | 2020-07-25 07:41 | NUR ---
RECEIVED REPORT FROM MATHEW NORMAN. PT SITTING UP TO CHAIR. PT HAS A VERY FLAT AFFECT.
--- NOTE | 2020-07-25 09:10 | NUR ---
IN PTS ROOM TO GIVE MORNING MEDS AND DO MORNING ASSESSMENT. PT HAS A VERY FLAT AFFECT AND IS MORE INTERESTED IN HER CELL PHONE THAN ANSWERING THIS RNS QUESTIONS AT THIS TIME.
--- NOTE | 2020-07-25 10:00 | NUR ---
SPOKE WITH PATIENT IN ROOM. PATIENT REQUIRING 3LNC OXYGEN AND HAS QUALIFIED FOR HOME OXYGEN NEED. DISCUSSED WITH HER OPTIONS OF COMPANIES AND PAYMENT POSSIBLY NOT COVERED FOR ACUTE NEED. DISCUSSED COST FOR A MONTH IS AROUND $140-170. BUT IF NEED IS STILL THERE IN 4 WEEKS INSURANCE WILL USUALLY COVER. [facility]. PATIENT PICKED UP HER CELL PHONE AND STARTED CALLING [facility]. I TOLD HER I WOULD LOOK INTO IT AND CALL CLINIC BUT SHE WAS ALREADY DOING THIS. CAME BACK TO OFFICE AND RECEIVED A CALL FROM JAQUELINE KHOURY RN AT [facility]. SHE STATES PATIENT DID CALL THEM, SHE WILL LOOK INTO HELP WITH PAYMENT.
--- NOTE | 2020-07-25 10:18 | NUR ---
PATIENT REMOVED FROM OXYGEN, 90% AT REST.
[2020-07-25] MEDS ORDERED: LEVOFLOXACIN750 MG PO (10:55)
--- NOTE | 2020-07-25 11:50 | NUR ---
SPOKE AGAIN WITH PATIENT. SHE STATES SHE DOESN'T KNOW YET IF SHE CAN GET HELP WITH PAYMENT. ASKED IF SHE HAD THE MONEY TO PAY HERSELF. SHE THINKS SHE DOES, IS GOING TO CHECK. ASKED WHICH COMPANY TO USE, SHE STATES THE ONE [place], [facility].
--- NOTE | 2020-07-25 12:10 | NUR ---
THIS RN IN PTS ROOM PER PT REQUEST TO ANSWER PTS QUESTIONS ON HOW SHE WILL GET HER MEDICATIONS AND THAT SHE NEEDED TO SPEAK WITH HER COTTON PICKING MACHINE OPERATOR. THIS RN ANSWERED QUESTIONS TO THE BEST OF HER ABILITY. ARCELIA FROM PHARMACY IN ROOM TO TALK WITH PT.
--- NOTE | 2020-07-25 12:28 | NUR ---
NOW THAT PT IS OFF VENT, ABLE TO VISIT WITH HER. PT SITTING IN CHAIR, TV ON. PT VERY ADAMANT THAT SHE HAS BEEN GIVEN A SECOND CHANCE AND WANTS TO MAKE GOOD ON THIS OPPORTUNITY. PT STATES THIS HAS SHOWN HER HOW FRAGILE LIFE IS. SHE BELIEVES IN GOD, REQUESTED PRAYER AND ACCEPTED A P.SHAWL. WILL FOLLOW
--- NOTE | 2020-07-25 13:00 | NUR ---
SPOKE WITH [facility]. THEY HAVE PROCESSED PAYEMENT AND PATIENT DOES NOT MEET FOR ACUTE NEED. DISCUSSED THAT JAQUELINE AT [facility] IS WORKING ON PAYMENT HELP. LIZETH [facility] STATES SHE WILL CALL AND COORDINATE WITH THEM. SHE STATES PATIENT HAS CALLED THEM MULTIPLE TIMES TODAY.
--- NOTE | 2020-07-25 14:33 | NUR ---
SPOKE WITH JAQUELINE PRYOR. SHE REQUESTED [facility] AND RX FAXED TO HER ALSO. SHE STATES THEY DO NOT DO OXYGEN QUALIFIER. SHE ASKED THAT WE FIND WHO CAN DO QUALIFIER IN A MONTH. DISCUSSED I WILL CALL OUR CLINIC AND ASK IF SOMEONE THERE CAN DO THIS. CALLED CLINIC AND SPOKE WITH NETWORK SECURITY ANALYST WHO TRANSFERRED ME TO DR AGUIRRE. DISCUSSED CASE WITH HIM, HE STATES THEY CAN DO QUALIFIER BUT THEY WILL NOT COVER HER MEDICAL CARE. HE STATES HE WILL HAVE HIS MA MAKE APPOINTMENT IN ONE MONTH FOR HER. CALLED JAQUELINE PRYOR BACK AND UPDATED HER WITH THIS. SHE STATES SHE WILL TALK WITH THE BUSINESS OFFICE AND THEY WILL CONTACT [facility]. UPDATED PATIENT THAT THINGS ARE STILL PENDING SO SHE CAN GET HELP WITH PAYMENT. PATIENT IS UP IN HALLS WITH STAFF.
--- NOTE | 2020-07-25 14:40 | NUR ---
THIS RN IN ROOM TO REMOVE PTS PICC LINE. PT GETTING MORE ANXIOUS AND STATING THAT SHE FEELS THAT SHE CAN DO MORE "TO GET OUT OF HERE BY GETTING UP IN [place]" THIS RN DISCUSSED WITH HER THAT THIS IS NOT THE BEST WAY TO GET THINGS DONE AND THERE IS A TEAM OF PEOPLE ATTEMPTING TO HELP HER. PT STILL STATES THAT SHE FEELS SHE CAN DO MORE BY GETTING IN [place]. THIS RN STATED THAT SHE SHOULD JUST GIVE THE TEAM A LITTLE MORE TIME.
--- NOTE | 2020-07-25 15:20 | NUR ---
JAQUELINE STALLWORTH [facility] CALLED AND STATES THEY HAVE AGREED TO PAY FOR THE OXYGEN. SHE HAS CALLED [facility]. SHE STATES THEY WILL CONTACT US.
--- NOTE | 2020-07-25 15:25 | NUR ---
RECEIVED CALL FROM [facility]. THEY CALLED PATIENT AND ARRANGED TIME TO MEET HER AT HOUSE TO SET UP OXYGEN. SENIOR TECHNICAL SUPPORT ENGINEER NOTIFIED, THEY WILL DISCHARGE WITH PORTABLE OXYGEN TO MEET DME AT HER HOME.
== END 2020-07-25 15:37 | disposition home or self-care (01) | DRG 917 ==
LOC: ED 22:48 → CCU 07-20 01:19 → MS 07-24 10:50
PROVIDERS: ADMIT Internal Medicine
PROC: 0BH17EZ Insertion of Endotracheal Airway into Trachea, Via Natural or Artificial Opening (ICD-10-PCS; principal; 2020-07-20)
PROC: 5A1945Z Respiratory Ventilation, 24-96 Consecutive Hours (ICD-10-PCS; 2020-07-20)
PROC: 02HV33Z Insertion of Infusion Device into Superior Vena Cava, Percutaneous Approach (ICD-10-PCS; 2020-07-21)
DX: T40.1X1A Poisoning by heroin, accidental (unintentional), initial encounter (principal); J96.01 Acute respiratory failure with hypoxia; J15.211 Pneumonia due to Methicillin susceptible Staphylococcus aureus; S22.43XA Multiple fractures of ribs, bilateral, initial encounter for closed fracture; F11.20 Opioid dependence, uncomplicated; Z20.828 Contact with and (suspected) exposure to other viral communicable diseases; E11.9 Type 2 diabetes mellitus without complications; I10 Essential (primary) hypertension; E66.9 Obesity, unspecified; G89.29 Other chronic pain; K21.9 Gastro-esophageal reflux disease without esophagitis; F39 Unspecified mood [affective] disorder; G47.33 Obstructive sleep apnea (adult) (pediatric); R74.0 Nonspecific elevation of levels of transaminase and lactic acid dehydrogenase [LDH]; F17.200 Nicotine dependence, unspecified, uncomplicated; Z79.84 Long term (current) use of oral hypoglycemic drugs; Z79.1 Long term (current) use of non-steroidal anti-inflammatories (NSAID); Z79.899 Other long term (current) drug therapy; Z88.8 Allergy status to other drugs, medicaments and biological substances; Z88.1 Allergy status to other antibiotic agents; Z88.5 Allergy status to narcotic agent; Z88.0 Allergy status to penicillin; Z68.39 Body mass index [BMI] 39.0-39.9, adult
CPT/HCPCS: 31500; 31720; 36415; 36569; 36600; 51702; 70450; 71045; 71260; 80048; 80053; 81001; 82803; 83735; 84100; 84484; 85025; 85610; 87070; 87077; 87186; 87205; 93005; 93010; 94002; 94003; 94640; 94660; 94668; 94760; 94761; 99285-25; C1751; C9113; C9803; G0480; J0330; J0780; J1650; J1885; J1940; J1956; J2060; J2250; J2310; J2405; J2704; J3010; J3475; J3480; J7030; J7060; J7121; Q0177; Q9967

== ENCOUNTER 2020-07-30 18:38 | Emergency (ER) | payer OTHER ==
[~2020-07-30] VITALS: Ht 165.1 cm; Wt 100.0 kg
--- OUTSIDE RECORDS SUMMARY | ~2020-07-30 | XMS | Encounter Summary ---
Demographics + + + | Address | [address] | | | [place] [address] | + + + | Home Phone | | + + + | Preferred Language | Unknown | + + + | Marital Status | | + + + | Moravian Affiliation | NON | + + + | Race | or | + + + | Ethnic Group | Not or | + + + Author + + + | Author | [facility] | + + + | Organization | [facility] [employer] [facility] | + + + | Address | Unknown | + + + | Phone | Unavailable | + + + Support + + +---------+ + | Name | Relationship | Address | Phone | + + +---------+ + | Ruby Au | ECON | Unknown | | + + +---------+ + Care Team Providers + +------+ + | Care Solar Power Installer Name | Role | Phone | + +------+ + | Yeison Simms MD | PCP | Unavailable | + +------+ + Encounter Details +--------+ + + + + | Date | Type | Department | Care Team | Description | +--------+ + + + + | 08/23/ | Telephone | Neurosurgery at | Kiki Rosen, | | | 2007 | | [facility] | | | | | [facility] [address] | [address]surgery [address] | | | | [address] [facility] | [address] | | | | | Health and Healing, | [place], [place] | | | | | | [address] | | | | | Floor [place], [place] | | | | | | [address] | | | | | | [phone] | | | +--------+ + + + [...] Miscellaneous Notes Telephone Encounter - Kiki Rosen - 08/23/2008 1:31 PM PDTPt had stomach upset after t aking ibuprofen, also some nausea. Children have stomach flu. No fevers/chills/headache. Dis comfort staying about the same since last Tuesday. Patient with no appetite, has not eaten to day. No abdominal pain to touch. Bladder and bowel movements ok, maybe looser stool than ave rage last few days. Asked patient to see PCP to decern whether this is a viral syndrome. Low suspicion of perf or infection. Patient is coming to clinic on Tuesday. Told her to call me directly if she feels worse, or symptoms change. documented in this encounter Plan of Treatment Not on filedocumented as of this encounter Visit Diagnoses Not on filedocumented in this encounter"
--- OUTSIDE RECORDS SUMMARY | ~2020-07-30 | XMS | Encounter Summary ---
Demographics + + + | Address | [address] | | | [place] [address] | + + + | Home Phone [...] + + + | Author | [facility] | + + + | Organization | [facility] [employer] [facility] | + + + | Address | Unknown | + + + | Phone | Unavailable | + + + Support + + +---------+ + | Name | Relationship | Address | Phone | + + +---------+ + | Ruby Au | ECON | Unknown | | + + +---------+ + Care Team Providers + +------+ + | Care Formstone Fitter Name | Role | Phone | + +------+ + | Brenden Benavides MD | PCP | | + +------+ + Reason for Visit + +--------+ + | Reason | Onset | Comments | | | Date | | + +--------+ + | Ultrasound procedure | 11/30/ | | | | 2006 | | + +--------+ + Encounter Details +--------+---------+ + + + | Date | Type | Department | Care Team | Description | +--------+---------+ + + + | 11/30/ | Office | [facility] | Lefty Mcfarlane | Pseudotumor Cerebri | | 2006 | Visit | [facility] | Bud Alexander MD [address] | (Primary Dx) | | | | [facility] [address] | Cassi Hammer | | | | | [address] | [place], [place] | | | | | [facility] | [address] | | | | | [place], [place] | [phone] | | | | | [address] | | | +--------+---------+ + + + [...] documented as of this encounter Progress Notes Asif Gale - 11/30/2006 3:40 PM PSTAnnabella Jt Pangjulisa was [facility] today, 11/30/2006, for ultrasound OU The ultrasound did not reveal any echographic evidence of bilateral optic nerve drusen,kaminski nayeli both optic nerve heads are elevated.The retrobulbar optic nerves appear thickened with a n echo pattern characteristic of subarachnoid fluid. Report finalized. LEFTY MCFARLANE MD documented in this enco unter Plan of Treatment Not on filedocumented as of this encounter Visit Diagnoses + + | Diagnosis | + + | Pseudotumor cerebri - Primary Benign intracranial hypertension | + + documented in this encounter"
--- OUTSIDE RECORDS SUMMARY | ~2020-07-30 | XMS | Encounter Summary ---
Demographics + + + | Address | [address] | | | [place] [address] | + + + | Home Phone | | + + + | Preferred Language | Unknown | + + + | Marital Status | | + + + | Anabaptism Affiliation | Unknown | + + + | Race | or | + + + | Ethnic Group | Not or | + + + Author + + + | Author | [facility] | | | and [place] | + + + | Organization | [facility] | | | [...] Team Providers + +------+ + | Care Business Administration Instructor Name | Role | Phone | + +------+ + PCP | Unavailable | + +------+ + Encounter Details +--------+ + + + + | Date | Type | Department | Care Team | Description | +--------+ + + + + | 10/22/ | Hospital | [facility] | | | | 1991 - | Encounter | [facility] | | | | | | [facility] [address] | | | | 11/27/ | | [place], | | | | 1991 | | [place] [address] | | | | | | [phone] | | | +--------+ + + + [...]
--- OUTSIDE RECORDS SUMMARY | ~2020-07-30 | XMS | Encounter Summary ---
Demographics + + + | Address | [address] | | | [place] [address] | + + + | Home Phone | | + + + | Preferred Language | Unknown | + + + | Marital Status | | + + + | Episcopalian Affiliation | NON | + + + | Race | or | + + + | Ethnic Group | Not or | + + + Author + + + | Author | [facility] | + + + | Organization | [facility] | + + + | Address | Unknown | + + + | Phone | Unavailable | + + + Support + + +---------+ + | Name | Relationship | Address | Phone | + + +---------+ + | Ruby Au | ECON | Unknown | | + + +---------+ + Care Team Providers + +------+ + | Care Political Science Professor Name | Role | Phone | + [...] Dx) | | | | [facility] | [place], [place] | | | | | Health and Healing, | [address] | | | | | [facility] | [phone] | | | | | floor [place], [place] | | | | | | [address] | | | | | | [phone] | | | +--------+---------+ + + + [...] in this encounter Progress Kiki Fallon - 08/26/2008 3:17 PM PDTThis patient comes [...] up PRN. documented in this encoun ter Miscellaneous Notes Scan - Interface, Pointers In - 09/06/2008 8:47 AM PDT documented in this encounter Plan of Treatment Not on filedocumented as of this encounter Visit Diagnoses + + | Diagnosis | + + | Pseudotumor cerebri - Primary Benign intracranial hypertension | + + documented in this encounter"
--- OUTSIDE RECORDS SUMMARY | ~2020-07-30 | XMS | Encounter Summary ---
Demographics + + + | Address | [address] | | | [place] [address] | + + + | Home Phone | | + + + | Preferred Language | Unknown | + + + | Marital Status | | + + + | Samaritan Affiliation | NON | + + + | Race | or | + + + | Ethnic Group | Not or | + + + Author + + + | Author | [facility] [facility] | + + + | Organization | [facility] [employer] [facility] | + + + | Address | Unknown | + + + | Phone | Unavailable | + + + Support + + +---------+ + | Name | Relationship | Address | Phone | + + +---------+ + | Ruby Au | ECON | Unknown | | + + +---------+ + Care Team Providers + +------+ + | Care Fancy Sewer Name | Role | Phone | + +------+ + | Brenden Benavides MD | PCP | | + +------+ + Reason for Visit + + + | Reason | Comments | + + + | Follow-up visit | pseudotumor cerebri | + + + Encounter Details +--------+---------+ + + + | Date | Type | Department | Care Team | Description | +--------+---------+ + + + | 01/30/ | Office | [facility] | Brad Currie MD | Pseudotumor Cerebri | | 2006 | Visit | [place] | | (Primary Dx) | | | | Neuro-Ophthalmology | | | | | | [address] [facility] | | | | | | Mailcode: [address] | | | | | | [place] [address] | | | | | | [phone] | | | +--------+---------+ + + + [...] documented as of this encounter Progress Notes Sergio Zhu - 01/30/2007 11:20 AM PSTFormatting of this note might be differen t from the original. Neuro-Ophthalmology Return Patient Evaluation 01/30/2007 Referred by: CASIMIRO PAYTON MD [address] [place] [address] Symptoms: Patient feels things are better. Vision seems better. Headaches are better. P atient currently using Diamox 1000 mg bid. Patient denies pulsatile tinnitus. Occasional tr ansient visual obscuration- left side. Current outpatient prescriptions Medication Sig DIAMOX OR 1000 mg bid IBUPROFEN 800 MG TAB 1 am and 1 nite Allergies: Codeine and Cephalexin Review of Systems: Cardiac: negative Pulmonary: negative GI: negative : negative Musculoskeletal: negative Psych/Neuro: negative General Appearance: Healthy, no apparent distress. Visual Acuity: Vasc RE 20/20 LE 20/25 Color Vision: RE AOHRR 10/10 LE AOHRR 9/10 Lids: Normal EOM's: Fixation: normal Saccades: normal Pursuit: normal Convergence: normal Nystagmus: none Strabimus: no Pupils: RE LE Sluggish: no no RAPD: no no Dilation Lag: no no Size (mm) Dark: Size (mm) Light: Confrontational VF: normal Visual Neglect: None GOLDMANN PERIMETRY FIRST EYE TESTED: Right Examiner: Kush Add OD: Add OS: FINDINGS: Static and kinetic perimetry was performed using 3 isopters OU. Fixation was exc ellent. Cooperation was good. Foveal threshold was I1e OD and I1e OS. There were no abnor malities in either eye. The size of the I1e isopter OS is quite small. Alert and Oriented x 3: yes Verbal Memory: Grossly normal Speech normal?: yes Face normal?: Yes Dilating drops placed: tropicamide 1% and neosynephrine 2.5% at 11:19 AM, left eye. Fundi: Dilated left eye only Funduscopy revealed disc edema OS; there are tortuous vessels OU. Impression: 1) Pseudotumor cerebri (PTC) Plan: She continues to manifest disc edema despite adequate therapy. I think we should pe rform an optic nerve sheath fenestration on the left eye. I am going to have her see Hay aguilar regarding this. I am continuing her on 1000 mg of Diamox bid at this time. She has had a lumboperitoneal shunt in the past, but this was removed and she was actually doing fine dur ing that time. Brad Currie MD Neuro-Ophthalmology and Cerebrovascular Disease Hand Former of Ophthalmology, Neurology, and Neurosurgery documented in this encounter Plan of Treatment + + +--------+ + + | Name | Type | Priori | Associated Diagnoses | Order Schedule | | | | ty | | | + + +--------+ + + | [place] VISUAL FIELD | Procedures | Routin | Pseudotumor | Ordered: 01/30/2007 | | EXAM,EXTENDED | | e | Cerebri | | + + +--------+ + + documented as of this encounter Visit Diagnoses + + | Diagnosis | + + | Pseudotumor cerebri - Primary Benign intracranial hypertension | + + documented in this encounter"
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
--- OUTSIDE RECORDS SUMMARY | ~2020-07-30 | XMS | Encounter Summary ---
Demographics + + + | Address | [address] | | | [place] [address] | + + + | Home Phone | | + + + | Preferred Language | Unknown | + + + | Marital Status | | + + + | Christianity Affiliation | Unknown | + + + | Race | or | + + + | Ethnic Group | Not or | + + + Author + + + | Author | [facility] | | | and [place] | + + + | Organization | [facility] | | [...] Team Providers + +------+ + | Care Lean Specialist Name | Role | Phone | + +------+ + PCP | Unavailable | + +------+ + Encounter Details +--------+ + + + + | Date | Type | Department | Care Team | Description | +--------+ + + + + | 07/10/ | Emergency | [facility] | Perry Flores | Headache; Benign | | 2012 | | [facility] | [place] [address] | intracranial | | | | EMERGENCY CENTER | [address] | hypertension; Back | | | | [address] | [place] [address] | pain | | | | [place], [place] | [phone] | | | | | [address] | | | | | | [phone] | | | +--------+ + + + [...] ED Notes Conversion Transaction, Provider Unknown - 07/10/2013 8:44 PM PDTFormatting of this note m ight be different from the original. ED Notes by Magdiel Jansen RN at 07/10/132043 Author: Magdiel Jansen RN Service: (none) Author Type: Registered Nurse Filed: 07/10/132043 Date of Service: 07/10/132043 Status: Signed Office Auditor: Magdiel Jansen RN (Registered Nurse) Pt stated that she is ready to go home and feels safe in doing so. If she does not leave no w she will not have a ride. Magdiel Jansen RN 07/10/132043 onver ludwin Transaction, Provider Unknown - 07/10/2013 8:25 PM PDT ED Notes by Magidel Jansen RN at 07/10/132024 Author: Magdiel Jansen RN Service: (none) Author Type: Registered Nurse Filed: 07/10/132041 Date of Service: 07/10/132024 Status: Signed Office Auditor: Magdiel Jansen RN (Registered Nurse) Returned from radiology. Tolerated procedure well. Magdiel Jansen RN 07/10/132041 onver ludwin Transaction, Provider Unknown - 07/10/2013 8:02 PM PDT ED Notes by Magdiel Jansen RN at 07/10/132001 Author: Magdiel Jansen RN Service: (none) Author Type: Registered Nurse Filed: 07/10/132002 Date of Service: 07/10/132001 Status: Signed Office Auditor: Magdiel Jansen RN (Registered Nurse) Pt transported to radiology via gurney with tech. Magdiel Jansen RN 07/10/132002 erry Negro MD - 07/10/2013 7:29 PM PDTFormatting of this note might be different from th e original. ED Provider Notes by Anoop Flores MD at 07/10/131928 Author: Anoop Flores MD Service: (none) Author Type: Physician Filed: 07/10/132239 Date of Service: 07/10/131928 Status: Signed Office Auditor: Anoop Flores MD (Physician) [facility] Department of Emergency Medicine History of Present Illness Patient Identification Annabella Au is a 37 y.o. female. Patient information was obtained from patient. History/Exam limitations: none. Patient presented to the Emergency Department by: Car Chief Complaint Chief Complaint Patient presents with Back Pain "I have a shunt and I am having pain and headache." Nausea pt has lumbar shunt. began having pain N/V today. Emesis 7:29 PM. The patient complains of lumbar shunt problems for pseudotumor cerebrii. States s mauricio is dislodged, as shown by XR with her Dr in [place] earlier in the year. Reports grad ual onset generalized throbbing howell beginning yesterday. The symptoms are described to be of moderate severity. The patient also complains of severe pain onset yesterday. Patient state s that she felt gradual onset pain up her spine and into the neck, accompanied by headache, vomiting (2 episodes yesterday and 1 today), feet swelling, and mild blurred vision (ongoing ). Patient was cleaning a house, reaching up and cleaning things for a while just before ons et. Care prior to arrival consisted of [place] twice daily, with no relief. Patient cannot catarina e NSAIDS. Patient[place] shunt [place] [address] Sterling in [facility] [place], for Hydrocephalus. Patient stat es she had no problems with it until this year. Patient has been having headaches all year. Patient lives in [place], spoke with the Neurosurgeon philatelic consultant, and was told to go to a [facility] with a Neurosurgeon. PCP: [facility] Past Medical History Diagnosis Date Diabetes mellitus type II Past Surgical History Procedure Date Cholecystectomy Shoulder arthroscopy w/ rotator cuff repair right Tonsillectomy section Ventriculoperitoneal shunt Carpal tunnel release bilateral Appendectomy Prior to Admission medications Medication Sig Start Date End Date Taking? Authorizing Provider diazepam (VALIUM) 10 MG tablet Take 10 mg by mouth every 6 (six) hours as needed. Yes His torical Provider HYDROcodone-acetaminophen (NORCO) 10-325 MG per tablet Take 1 tablet by mouth every 6 (six) hours as needed. Yes Historical Provider METFORMIN HCL PO Take by mouth. Yes Historical Provider omeprazole (PRILOSEC) 20 MG capsule Take 20 mg by mouth 2 (two) times daily. Yes Historic al Provider sertraline (ZOLOFT) 100 MG tablet Take 200 mg by mouth daily. Yes Historical Provider Allergies Allergen Reactions Codeine Hives Morphine Hives Augmentin Nausea and Vomiting History Social History Marital Status: Spouse Name: N/A Number of Children: N/A Years of Education: N/A Occupational History Not on file. Social History Main Topics Smoking status: Smoker, Current Status Unknown -- 0.5 packs/day Smokeless tobacco: Current User Alcohol Use: No Drug Use: No Sexually Active: Other Topics Concern Not on file Social History Narrative No narrative on file History reviewed. No pertinent family history. Review of Systems Constitutional: Positive for: shunt complication Negative for: fever, chills, fatigue, sweats or weight loss Eyes: Positive for: blurred vision (chronic) Negative for: irritated eyes Nose: Negative for: nosebleed or congestion Throat: Negative for: mouth sores or pain Cardiovascular/Respiratory: Positive for: bilateral lower extremity edema Negative for: chest pain, shortness of breath, cough or wheeze Gastrointestinal: Positive for vomiting Negative for: abdominal pain, diarrhea, constipation, black or bloody stools Genitourinary: Negative for: dysuria, hematuria, urinary problems Musculoskeletal: Positive for: back and neck pain Skin: Negative for: laceration, lesion or rash Neuro and psych: Positive for: headache Negative for: fainting, head injury, seizure, difficulty with balance or speech Endocrine/Heme/Lymph: Negative for: swollen lymph nodes, easy bruising Physical Exam BP 151/93 | Pulse 92 | Temp 98.6 F (37 C) (Oral) | Resp 20 | SpO2 97% Vital signs: Hypertensive, otherwise normal Pulse Oximetry interpretation: Normal General: Alert, in no apparent distress, obese Eyes: Normal inspection, pupils equal and round, non-icteric, EOMI ENT: Ears normal Nose normal Pharynx normal Moist mucous membranes Neck: Normal inspection Supple No lymphadenopathy No meningismus Cardiovascular: Rate and rhythm normal No murmurs Equal and strong b/l radial pulses Respiratory: Breath sounds normal and equal bilaterally; normal work of breathing Abdomen: Soft, non-tender, non-distended No guarding or rebound Back: Midline lumbar scar with tenderness and foreign body palpable to the left paraspinou s area Ext: WWP, no swelling or edema Skin: Color normal Warm and dry No rash Neuro: CN II-XII intact A&O X 3 Strength and sensation normal and equal throughout all distributions Normal gait Medical Decision Making and Emergency Department Course ED Department Course Patient presenting with headache. DDx includes, but is not limited to, migraine, tension, meningitis, hydrocephalus, SAH/ICH, CVA/TIA, shunt complication. At this time the pt is yaneli ro intact and does not have findings c/w infectious cause. Will obtain labs, head CT, XR curtis mbar spine, provide pain and nausea control as needed and consider diagnostic imaging to fur ther evaluate. 8:00 PM Patient given Ketorolac 30 mg, Metoclopramide 10 mg, and Hydromorphine 1 mg IV. 8:49 PM Recheck. Feeling much improved; howell is now resolved and, requests to leave and go ho me although the report of her XR is not returned, head CT looks normal. Advised return preca utions and referral to neurosurgery for shunt consultation. Patient understands and agrees w ith the plan. All questions and concerns addressed. XR reviewed by me; shunt does not appea r to be in the correct location. Will await formal read. Labs reviewed and are unremarkable. Imaging performed to rule out acute intracranial proce ss and show negative CT head. Pain was improved with medication and pt remains neuro intact . Pt is comfortable to go home. Advised f/u with neurosurgery and her PCP. Records Reviewed Old medical records. Nursing notes. Prior ED visits for unrelated complaints. Laboratory Evaluation Results Procedure Component Value Ref Range Date/Time Comprehensive metabolic panel [[id number]] (Abnormal) Collected:07/10/131946 Order Status:Completed Updated:07/10/132010 Specimen Information:Blood SODIUM 141 135 - 143 mmol/L POTASSIUM 3.7 3.5 - 4.9 mmol/L CHLORIDE 104 99 - 109 mmol/L CO2 29 23 - 32 mmol/L ANION GAP AGAP 12 5 - 20 mmol/L GLUCOSE 96 65 - 99 mg/dL BUN 10 8 - 25 mg/dL CREATININE 1.02 (H) 0.50 - 1.00 mg/dL BUN/CREAT 10 CALCIUM 8.4 (L) 8.5 - 10.2 mg/dL TOTAL PROTEIN 6.9 6.3 - 8.2 g/dL Albumin 3.3 (L) 3.6 - 5.0 g/dL GLOBULIN 3.6 1.3 - 4.9 g/dL A/G 0.9 (L) 1.0 - 2.4 TBIL 0.2 0.1 - 1.5 mg/dL ALK PHOS 63 35 - 115 U/L AST 29 10 - 45 U/L ALT 21 10 - 65 U/L EGFR >60 >60 mL/min/1.73m2 CBC with differential [[id number]] (Abnormal) Collected:07/10/131946 Order Status:Completed Updated:07/10/131953 Specimen Information:Blood WBC 11.2 (H) 3.8 - 11.0 K/uL RBC 4.24 3.70 - 5.10 M/uL HGB 11.6 11.3 - 15.5 g/dL HCT 35.0 34.0 - 46.0 % MCV 82.6 80.0 - 100.0 fl MCH 27.4 27.0 - 34.0 pg MCHC 33.2 32.0 - 35.5 g/dL RDW SD 48.6 37 - 53 fl PLT 186 150 - 400 K/uL MPV 8.8 fl DIFF TYPE AUTOMATED NEUTROPHILS 66.8 40 - 75 % LYMPHOCYTES 25.2 15 - 48 % MONOCYTES 5.3 0 - 12 % EOSINOPHILS 2.3 0 - 7 % BASOPHILS 0.4 0 - 2 % NEUTROPHILS ABS 7.5 (H) 1.9 - 7.4 K/uL LYMPHOCYTES ABS 2.8 1.0 - 3.9 K/uL MONOCYTES ABS 0.6 0 - 0.8 K/uL EOSINOPHILS ABS 0.3 0 - 0.5 K/uL BASOPHILS ABS 0.0 0 - 0.1 K/uL I personally reviewed the lab results and they have been posted to the chart. Pertinent po sitive and negative findings have been addressed appropriately. Radiology and EKG Evaluation Imaging Results CT Head Non-Contrast (Final result) Result time:07/10/132026 Final result by Rad Results In Neal (07/10/13 20:27:21) Narrative: [facility] CT HEAD WO CONTRAST HISTORY: 37 years. Female. Severe headache. TECHNIQUE: CT examination of the head was performed without contrast. COMPARISON: None. FINDINGS: The ventricles are normal in size and occupy midline position. No abnormal areas of increas e or decrease density seen throughout the brain. No mass, hemorrhage, midline shift, or extr a-axial are fluid collection . The orbits and their contents are normal. The mastoid and par anasal sinuses are clear. IMPRESSION: 1. Negative CT head without contrast. Lumbar Spine 3 View (In process) ED Diagnoses Final diagnoses Headache Benign intracranial hypertension Back pain Disposition: ED Disposition Discharge Condition at discharge: Stable Follow-up Information Follow up With Details Comments Contact Info Lyle Morris MD Follow up this week [address] [facility] [address] [facility] [address] [facility] Follow up next week [address] [place] [address] [facility] Emergency Department If symptoms worsen [address] [facility] [address] Discharge Medications: New Prescriptions No new medications Additional Documentation Procedures Attending Note: Documentation assistance provided by Jade Burgos (Scribe). Information recorded by the scribe has been reviewed and validated by . Simon nolasco with its contents. Anoop Flores MD 07/10/13 8470 onversio n Transaction, Provider Unknown - 07/10/2013 6:15 PM PDTFormatting of this note might be di fferent from the original. ED Notes by Magdiel Jansen RN at 07/10/131814 Author: Magdiel Jansen RN Service: (none) Author Type: Registered Nurse Filed: 07/10/131938 Date of Service: 07/10/131814 Status: Signed Office Auditor: Magdiel Jansen RN (Registered Nurse) Bed side report received. Assumed care. Chart reviewed. Assessment completed. Updated pt o n plan of care. Waiting for MD grey. Bed is in low and locked position. Side rails up x1. C all light with in reach. Magdiel Jansen RN 07/10/131938 docume nted in this encounter Plan of Treatment Not on filedocumented as of this encounter Procedures + +--------+ + + + | Procedure Name | Priori | Date/Time | Associated Diagnosis | Comments | | | ty | | | | + +--------+ + + + | XR LUMBAR SPINE 2 OR | Routin | 07/10/2013 | | Results for this | | 3 VW | e | 8:23 PM | | procedure are in the | | | | PDT | | results section. | + +--------+ + + + | CT HEAD WO CONTRAST | Routin | 07/10/2013 | | Results for this | | | e | 8:12 PM | | procedure are in the | | | | PDT | | results section. | + +--------+ + + + documented in this encounter Results XR Lumbar Spine 2 or 3 Vw (07/10/2013 8:23 PM PDT) + + | Specimen | + + | | + + + + + | Narrative | Performed At | + + + | [facility] XR LUMBAR SPINE LIMITED 2-3 VIEW HISTORY: 37 | | | years. Female. Lumbar shunt. TECHNIQUE: Frontal and lateral | | | views of the lumbosacral spine. COMPARISON: None. FINDINGS: | | | A lumbar peritoneal catheter within the posterior soft tissues of the | | | back on the left side that courses anteriorly into the pelvis that is | | | intact. The proximal tip is located 10 cm lateral to the lumbar spine | | | and 9 cm posterior to lumbar spine. No catheter seen extending into | | | the spinal canal. Note is made of intrauterine device. Non-obstructive | | | bowel gas pattern. The vertebral height, alignment, and | | | interspacing are preserved. IMPRESSION: 1. Lumbar peritoneal | | | catheter placement, as described above. | | + + + + + | Procedure Note | + + | Héctor De Jesus Conversion - 07/20/2019 5:54 PM PDT [facility] LUMBAR SPINE | | LIMITED 2-3 VIEW HISTORY:37 years. Female. Lumbar shunt. TECHNIQUE:Frontal and lateral | | views of the lumbosacral spine. COMPARISON:None. FINDINGS:A lumbar peritoneal catheter | | within the posterior soft tissues of the back on the left side that courses anteriorly | | into the pelvis that is intact. The proximal tip is located 10 cm lateral to the lumbar | | spine and 9 cm posterior to lumbar spine. No catheter seen extending into the spinal | | canal. Note is made of intrauterine device. Non-obstructive bowel gas pattern. The | | vertebral height, alignment, and interspacing are preserved. IMPRESSION:1. Lumbar | | peritoneal catheter placement, as described above. | |None. | | | |FINDINGS: | |A lumbar peritoneal catheter within the posterior soft tissues of the back on the left side that courses anteriorly into the pelvis that is intact. The proximal tip is located 10 cm l ateral to the lumbar spine and 9 cm posterior to lumbar spine. No | |catheter seen extending into the spinal canal. Note is made of intrauterine device. Non-obs tructive bowel gas pattern. | | | |The vertebral height, alignment, and interspacing are preserved. | | | |IMPRESSION: | |1. Lumbar peritoneal catheter placement, as described above. | | | | | + + CT Head wo Contrast (07/10/2013 8:12 PM PDT) + + | Specimen | + + | | + + + + + | Narrative | Performed At | + + + | [facility] CT HEAD WO CONTRAST HISTORY: 37 years. | | | Female. Severe headache. TECHNIQUE: CT examination of the head | | | was performed without contrast. COMPARISON: None. FINDINGS: | | | The ventricles are normal in size and occupy midline position. No | | | abnormal areas of increase or decrease density seen throughout the | | | brain. No mass, hemorrhage, midline shift, or extra-axial are fluid | | | collection . The orbits and their contents are normal. The mastoid | | | and paranasal sinuses are clear. IMPRESSION: 1. Negative CT | | | head without contrast. | | + + + + + | Procedure Note | + + | Neal, Rad Conversion - 07/20/2019 5:54 PM PDT [facility] | | HISTORY:37 years. Female. Severe headache. TECHNIQUE:CT examination of the head was | | performed without contrast. COMPARISON:None. FINDINGS:The ventricles are normal in size | | and occupy midline position. No abnormal areas of increase or decrease density seen | | throughout the brain. No mass, hemorrhage, midline shift, or extra-axial are fluid | | collection . The orbits and their contents are normal. The mastoid and paranasal sinuses | | are clear. IMPRESSION:1. Negative CT head without contrast. | | | |COMPARISON: | |None. | | | |FINDINGS: | |The ventricles are normal in size and occupy midline position. No abnormal areas of increas e or decrease density seen throughout the brain. No mass, hemorrhage, midline shift, or extr a-axial are fluid collection . The orbits and their contents are | |normal. The mastoid and paranasal sinuses are clear. | | | |IMPRESSION: | |1. Negative CT head without contrast. | | | | | + + documented in this encounter Visit Diagnoses + + | Diagnosis | + + | Headache(784.0) Headache | + + | Benign intracranial hypertension | + + | Back pain Backache, unspecified | + + documented in this encounter
--- OUTSIDE RECORDS SUMMARY | ~2020-07-30 | XMS | Encounter Summary ---
Demographics + + + | Address | [address] | | | [place] [address] | + + + | Home Phone | | + + + | Preferred Language | Unknown | + + + | Marital Status | | + + + | Mormon Affiliation | NON | + + + | Race | or | + + + | Ethnic Group | Not or | + + + Author + + + | Author | [facility] | + + + | Organization | [facility] [employer] [facility] | + + + | Address | Unknown | + + + | Phone | Unavailable | + + + Support + + +---------+ + | Name | Relationship | Address | Phone | + + +---------+ + | Ruby Au | ECON | Unknown | | + + +---------+ + Care Team Providers + +------+ + | Care Data Steward Name | Role | Phone | + [...] Cerebri | | 2006 | Visit | Benicia | | (Primary Dx) | | | | Neuro-Ophthalmology | | | | | | [address] [facility] | | | | | | Mailcode: PATTI | | | | | | [place] [address] | | | | | | [phone] | | | +--------+---------+ + + + [...] this encounter Progress Notes Sergio Zhu - 03/27/2007 11:07 AM PDTFormatting of this note might be differen t from the original. Neuro-Ophthalmology Return Patient Evaluation 03/27/2007 Referred by: CASIMIRO PAYTON MD [address] [place] [address] Per [facility] chart note taken this morning by . Symptoms: Patient specific problem noted by patient: transient visual loss HPI: 31 y.o. year old female from [place] : Patient presents with: Transient visual loss [...] Pulmonary: negative GI: Problems due to terminal clerk use of tylenol/ibuprofen. : negative Musculoskeletal: negative [...] of Diamox bid for now. She r eally does not want to increase her dose and I think that this is fine given that her disc e sushant is very mild and her visual function. I am going to see her back in 2 months time. Brad Currie MD Neuro-Ophthalmology and Cerebrovascular Disease [facility] Neurology, and Neurosurgery documented in this encounter Plan of Treatment + + +--------+ + + | Name | Type | Priori | Associated Diagnoses | Order Schedule | | | | ty | | | + + +--------+ + + | MI VISUAL FIELD | Procedures | Routin | Pseudotumor | Ordered: 03/27/2007 | | EXAM,EXTENDED | | e | Cerebri | | + + +--------+ + + documented as of this encounter Visit Diagnoses + + | Diagnosis | + + | Pseudotumor cerebri - Primary Benign intracranial hypertension | + + documented in this encounter
--- OUTSIDE RECORDS SUMMARY | ~2020-07-30 | XMS | Encounter Summary ---
Demographics + + + | Address | [address] | | | [place] [address] | + + + | Home Phone | | + + + | Preferred Language | Unknown | + + + | Marital Status | | + + + | Mormonism Affiliation | NON | + + + | Race | or | + + + | Ethnic Group | Not or | + + + Author + + + | Author | [facility] [facility] | + + + | Organization | [facility] [employer] [facility] | + + + | Address | Unknown | + + + | Phone | Unavailable | + + + Support + + +---------+ + | Name | Relationship | Address | Phone | + + +---------+ + | Ruby Au | ECON | Unknown | | + + +---------+ + Care Team Providers + +------+ + | Care Security Professional Name | Role | Phone | + +------+ + | Dennis Maddox | PCP | | + +------+ + Reason for Visit + +--------+ + | Reason | Onset | Comments | | | Date | | + +--------+ + | Visual field testing | 03/26/ | | | | 2012 | | + +--------+ + Diagnostic Testing (Routine) +--------+--------+ + + + + | Status | Reason | Specialty | Diagnoses / | Referred By | Referred To | | | | | Procedures | Contact | Contact | +--------+--------+ + + + + | Closed | | Ophthalmology | | Non-[facility] | [facility] | | | | | | Epic Dept | [place] [address] | | | | | | [address] | | | | | | | [facility] | | | | | | | [place], | | | | | | | [address] [place] [address] | | | | | | | [place], [place] | | | | | | | [address] Phone: | | | | | | | [phone] | | | | | | | Fax: | | | | | | | [phone] | +--------+--------+ + + + + Encounter Details +--------+ + + + + | Date | Type | Department | Care Team | Description | +--------+ + + + + | 03/26/ | Procedure | [facility] | | Visual field testing | | 2012 | | [place] [facility] | | | | | | [place] at [facility] [address] | | | | | | [address] [facility] | | | | | | for Heatl and | | | | | | Healing, Building [address], | | | | | | 11th Floor | | | | | | [place], [place] | | | | | | [address] | | | | | | [phone] | | | +--------+ + + + [...] + documented as of this encounter Progress Kenneth Beckman - 03/26/2013 12:50 PM PDT Annabella Au was seen in the [facility] [place] [facility] Department today, 2012, for 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 documented in this encounter Plan of Treatment Not on filedocumented as of this encounter Procedures + +--------+ + + + | Procedure Name | Priori | Date/Time | Associated Diagnosis | Comments | | | ty | | | | + +--------+ + + + | OK VISUAL FIELD | Routin | 03/26/2013 | [...]
--- OUTSIDE RECORDS SUMMARY | ~2020-07-30 | XMS | Encounter Summary ---
Demographics + + + | Address | [address] | | | [place] [address] | + + + | Home Phone [...] + + + | Author | [facility] | | | and [place] | + + + | Organization | [facility] | | | [...] Team Providers + +------+ + | Care Wood Pile Driver Operator Name | Role | Phone | + +------+ + PCP | Unavailable | + +------+ + Encounter Details +--------+ + + + + | Date | Type | Department | Care Team | Description | +--------+ + + + + | 06/20/ | Hospital | [facility] | Yovanny Suazo, | | | 1991 | Encounter | MED CTR [facility] | MD [address] | | | | | HEALTH SVCS [address] | [address] [facility] | | | | | [place], | [place] [address] | | | | | [place] [address] | [phone] | | | | | [phone] | | | +--------+ + + + [...]
--- OUTSIDE RECORDS SUMMARY | ~2020-07-30 | XMS | Encounter Summary ---
Demographics + + + | Address | [address] | | | [place] [address] | + + + | Home Phone [...] + + | Author | [facility] | + + + | Organization | [facility] [facility] | + + + | Address | Unknown | + + + | Phone | Unavailable | + + + Support + + +---------+ + | Name | Relationship | Address | Phone | + + +---------+ + | Ruby Au | ECON | Unknown | | + + +---------+ + Care Team Providers + +------+ + | Care Color Repairer Name | Role | Phone | [...] | | | | | hypertension | [place], [place] | [place], [place] | | | | | Procedures | [address] | [address] | | | | | REQUEST TO | Phone: | Phone: | | | | | SURGERY | [phone] | [phone] | | | | | TOWER CLEANER | Fax: | Fax: | | | | | [place] INSTALL | [phone] | [phone] | | | | | SPINAL | [...] Ave | | | | | Ave [facility] | [place], [place] | | | | | Health and Healing, | [address] | | | | | [facility] | [phone] | | | | | floor [place], [place] | | | | | | [address] | | | | | | [phone] | | | +--------+ + + + [...]
--- OUTSIDE RECORDS SUMMARY | ~2020-07-30 | XMS | Encounter Summary ---
Demographics + + + | Address | [address] | | | [place] [address] | + + + | Home Phone [...] + + | Author | [facility] | + + + | Organization | [facility] [employer] [facility] | + + + | Address | Unknown | + + + | Phone | Unavailable | + + + Support + + +---------+ + | Name | Relationship | Address | Phone | + + +---------+ + | Ruby Au | ECON | Unknown | | + + +---------+ + Care Team Providers + +------+ + | Care Calculus Teacher Name | Role | Phone | [...] Care Coordination | | 2018 | | [place] | [address] | | | | | Neuro-Ophthalmology | [place], [place] | | | | | at [facility] [address] | [address] | | | | | Ave [facility] | [phone] | | | | | [place], | | | | | | [facility] | | | | | | [place], [place] | | | | | | [address] | | | | | | [phone] | | | +--------+ + + + [...] bad as it is now. Lives in [place], and says there is limite d access [...] She also lives about 40 minutes from [place]. She wo uld like to go there. [...]
--- OUTSIDE RECORDS SUMMARY | ~2020-07-30 | XMS | Encounter Summary ---
Demographics + + + | Address | [address] | | | [place] [address] | + + + | Home Phone [...] Team Providers + +------+ + | Care Education Dean Name | Role | Phone | + +------+ + PCP | Unavailable | + +------+ + Encounter Details +--------+ + + + + | Date | Type | Department | Care Team | Description | +--------+ + + + + | 07/07/ | Hospital | [facility] | | | | 1991 | Encounter | MED CTR EM[facility] | | | | | | CENTER [address] | | | | | | [place] | | | | | | [address] | | | | | | [phone] | | | +--------+ + + + [...]
--- OUTSIDE RECORDS SUMMARY | ~2020-07-30 | XMS | Encounter Summary ---
Demographics + + + | Address | [address] | | | [place] [address] | + + + | Home Phone [...] + + | Author | [facility] | + + + | Organization | [facility] [employer] [facility] [...] Team Providers + +------+ + | Care Internet Systems Administrator Name | Role | Phone | + +------+ + | Yeison Simms MD | PCP | Unavailable | + +------+ + Reason for Visit +--------+--------+ + | Reason | Onset | Comments | | | Date | | +--------+--------+ + | Other | 05/14/ | pain at incision site | | | 2008 | | +--------+--------+ + Encounter Details +--------+ [...] incision site) | | | | [facility] | [place], [place] | | | | | Health and Healing, | [address] | | | | | | [phone] | | | | | floor [place], [place] | | | | | | [address] | | | | | | [phone] | | | +--------+ + + + [...] Notes Telephone Encounter - Mandi Mcdonnell - 05/14/2009 2:22 PM PDTPt calls today wanting to nas brannon with Kiki regarding some pain she has been experiencing at her incision site. Please call pt. documented in this encou nter Plan of Treatment Not on filedocumented as of this encounter Visit Diagnoses Not on filedocumented in this encounter"
--- OUTSIDE RECORDS SUMMARY | ~2020-07-30 | XMS | Encounter Summary ---
Demographics + + + | Address | [address] | | | [place] [address] | + + + | Home Phone [...] Author | [facility] | | | and [place] | + + + | Organization | [facility] [...] Team Providers + +------+ + | Care Auctioneer Automobile Name | Role | Phone | + +------+ + PCP | Unavailable | + +------+ + Encounter Details +--------+ + + + + | Date | Type | Department | Care Team | Description | +--------+ + + + + | 06/22/ | Hospital | [facility] | Yovanny Suazo, | | | 1991 | Encounter | MED CTR [facility] | MD [address] | | | | | HEALTH SVCS [address] | [address] [facility] | | | | | [place], | [place] [address] | | | | | [place] [address] | [phone] | | | | | [phone] | | | +--------+ + + + [...]
--- OUTSIDE RECORDS SUMMARY | ~2020-07-30 | XMS | Encounter Summary ---
Demographics + + + | Address | [address] | | | [place] [address] | + + + | Home Phone | | + + + | Preferred Language | Unknown | + + + | Marital Status | | + + + | Confucianist Affiliation | Unknown | + + + | Race | or | + + + | Ethnic Group | Not or | + + + Author + + + | Author | [facility] | | | and [place] | + + + | Organization | [facility] | [...] Team Providers + +------+ + | Care Bdc Manager Name | Role | Phone | + +------+ + PCP | Unavailable | + +------+ + Encounter Details +--------+ + + + + | Date | Type | Department | Care Team | Description | +--------+ + + + + | 05/21/ | Hospital | [facility] | | | | 1991 | Encounter | MED [facility] | | | | | | HEALTH SVCS [address] | | | | | | [place], | | | | | | [place] [address] | | | | | | [phone] | | | +--------+ + + + [...]
--- OUTSIDE RECORDS SUMMARY | ~2020-07-30 | XMS | Encounter Summary ---
Demographics + + + | Address | [address] | | | [place] [address] | + + + | Home Phone | | + + + | Preferred Language | Unknown | + + + | Marital Status | | + + + | Caodaism Affiliation | NON | + + + | Race | or | + + + | Ethnic Group | Not or | + + + Author + + + | Author | [facility] [employer] [facility] | + + + | Organization | [facility] [employer] [facility] | + + + | Address | Unknown | + + + | Phone | Unavailable | + + + Support + + +---------+ + | Name | Relationship | Address | Phone | + + +---------+ + | Ruby Au | ECON | Unknown | | + + +---------+ + Care Team Providers + +------+ + | Care Inventory Control Analyst Name | Role | Phone | [...] Erroneous Encounter | | 2007 | | [place] [facility] | [facility] | - Disregard | | | | and Healing [address] | Neurosurgery [address] | | | | | [address] [facility] | [address] | | | | | Health and Healing, | [place], [place] | | | | | [facility] | [address] | | | | | Floor [place], [place] | | | | | | [address] | | | | | | [phone] | | | +--------+ + + + [...] Telephone Encounter - Kiki Rosen - 08/14/2008 7:54 PM PDTLeft message for patient to call me back. Toreyectronically signed by Kiki Rosen at 08/14/2008 7:54 PM PDTdocumented in this en counter Plan of Treatment Not on filedocumented as of this encounter Visit Diagnoses Not on filedocumented in this encounter"
--- OUTSIDE RECORDS SUMMARY | ~2020-07-30 | XMS | Encounter Summary ---
Demographics + + + | Address | [address] | | | [place] [address] | + + + | Home Phone [...] | Author | [facility] | + + + | Organization | [facility] [employer] [facility] [...] Team Providers + +------+ + | Care Engineering Clerk Name | Role | Phone | [...] | | | REFERRAL TO | | [place], [place] | | | | | NEUROINTERVE | | [address] | | | | | NTIONAL | | Phone: | | | | | RADIOLOGY | | [phone] | | | | | PRACTICE | | Fax: | | | | | | | [phone] | +--------+--------+ + + + + Reason [...] Dx) | | | | Mailcode:[id number] | [place], [place] | | | | | Outpatient Clinic | [address] | | | | | Building [place], | [phone] | | | | | [place] [address] | | | | | | [phone] | | | +--------+---------+ + + + [...] resident s note. CASIMIRO PAYTON MD NEUROSURGERY [address] [place] [address] [place] [address] hPascual hanley Bri - 12:00 PM PDT CC: CAPONE and [...] spots" and "tunnel vision." Last saw an machinery mechanic in [facility] 2 months ago. Reportedl y, this showed that her OS vision was worse - no reports available to me at this time. Was a lso admitted to the [facility] for CAPONE about a month ago. [...] Patient was also given a prescription for [place] for CAPONE until she establishs care with [...]
--- OUTSIDE RECORDS SUMMARY | ~2020-07-30 | XMS | Encounter Summary ---
Demographics + + + | Address | [address] | | | [place] [address] | + + + | Home Phone | | + + + | Preferred Language | Unknown | + + + | Marital Status | | + + + | Synagogue Affiliation | NON | + + + | Race | or | + + + | Ethnic Group | Not or | + + + Author + + + | Author | [facility] | + + + | Organization | [facility] | + + + | Address | Unknown | + + + | Phone | Unavailable | + + + Support + + +---------+ + | Name | Relationship | Address | Phone | + + +---------+ + | Ruby Au | ECON | Unknown | | + + +---------+ + Care Team Providers + +------+ + | Care Animal Control Licensing Worker Name | Role | Phone | [...] [address] | | | | | [address] [facility] | [facility] | | | | | Health and Healing, | Rd [place], [place] | | | | | | [address] | | | | | floor [place], [place] | [phone] | | | | | [address] | | | | | | [phone] | | | +--------+ + + + [...]
--- OUTSIDE RECORDS SUMMARY | ~2020-07-30 | XMS | Encounter Summary ---
Demographics + + + | Address | [address] | | | [place] [address] | + + + | Home Phone [...] Team Providers + +------+ + | Care Paraprofessional Aide Teacher Name | Role | Phone | + +------+ + PCP | Unavailable | + +------+ + Encounter Details +--------+ + + + + | Date | Type | Department | Care Team | Description | +--------+ + + + + | 08/16/ | Hospital | [facility] | | | | 1990 | Encounter | MED CTR EMERGENCY | | | | | | CENTER [address] | | | | | | [place] | | | | | | [address] | | | | | | [phone] | | | +--------+ + + + [...]
--- OUTSIDE RECORDS SUMMARY | ~2020-07-30 | XMS | Encounter Summary ---
Demographics + + + | Address | [address] | | | [place] [address] | + + + | Home Phone [...] + + + | Author | [facility] [facility] | + + + | Organization | [facility] [employer] [facility] | + + + | Address | Unknown | + + + | Phone | Unavailable | + + + Support + + +---------+ + | Name | Relationship | Address | Phone | + + +---------+ + | Ruby Au | ECON | Unknown | | + + +---------+ + Care Team Providers + +------+ + | Care Burling And Joining Supervisor Name | Role | Phone | + +------+ + | Pedro Luis Sams MD | PCP | | + +------+ + Encounter Details +--------+ + + + + | Date | Type | Department | Care Team | Description | +--------+ + + + + | 08/31/ | Telephone | [facility] | Leticia Pitts MD | | | 2010 | | [place]/Ophthalmol | | | | | | ogy at [facility] [address] | | | | | | [address] [facility] for | | | | | | Health and Healing, | | | | | | Building | | | | | | Floor [place], [place] | | | | | | [address] | | | | | | [phone] | | | +--------+ + + + [...] this encounter Miscellaneous Notes Telephone Encounter - Leticia Pitts Md - 08/31/2011 4:19 PM PDTPatient had a follow-up seun t with me on Thursday 08/30 for repeat dilated exam and adjustment of Diamox dose. I saw her in ED for pseudotumor cerebri, and she had edematous optic nerves. She was started on Diamox 1 g po bid. She missed Tuesday's follow-up appt, so I called her and left a message to nain luke and importance of repeat exam. Leticia Pitts M.D. Ophthalmology Resident [facility] documented in this encou nter Plan of Treatment Not on filedocumented as of this encounter Visit Diagnoses Not on filedocumented in this encounter"
--- OUTSIDE RECORDS SUMMARY | ~2020-07-30 | XMS | Encounter Summary ---
Demographics + + + | Address | [address] | | | [place] [address] | + + + | Home Phone | | + + + | Preferred Language | Unknown | + + + | Marital Status | | + + + | Zoroastrianism Affiliation | NON | + + + | Race | or | + + + | Ethnic Group | Not or | + + + Author + + + | Author | [facility] | + + + | Organization | [facility]placed [facility] [employer] [facility] | + + + | Address | Unknown | + + + | Phone | Unavailable | + + + Support + + +---------+ + | Name | Relationship | Address | Phone | + + +---------+ + | Ruby Au | ECON | Unknown | | + + +---------+ + Care Team Providers + +------+ + | Care Clothes Separator Name | Role | Phone | + [...] Cerebri | | 2006 | Visit | [place] | | (Primary Dx) | | | | Neuro-Ophthalmology | | | | | | [address] [facility] | | | | | | Mailcode: PATTI | | | | | | [place] [address] | | | | | | [phone] | | | +--------+---------+ + + + [...] this encounter Progress Notes Brad Currie - 11/30/2006 11:58 AM PSTFormatting of this [...] Healthy, no apparent distress. Visual Acuity: Vasc Snehal VAph RE 20/20-1 20/- 20/- LE 20/20 [...] Brad Currie MD Neuro-Ophthalmology and Cerebrovascular Disease Founder And Chief Technical Officer of Ophthalmology, Neurology, and Neurosurgery documented in [...] | + + +--------+ + + | SD VISUAL FIELD | Procedures | Routin | Pseudotumor | Ordered: 12/02/2006 | | EXAM,EXTENDED | | e | Cerebri | | + + +--------+ + + documented as of this encounter Visit Diagnoses + + | Diagnosis | + + | Pseudotumor cerebri - Primary Benign intracranial hypertension | + + documented in this encounter"
--- OUTSIDE RECORDS SUMMARY | ~2020-07-30 | XMS | Encounter Summary ---
Demographics + + + | Address | [address] | | | [place] [address] | + + + | Home Phone [...] | Author | [facility] | + + + | Organization | [facility] [employer] [facility] | + + + | Address | Unknown | + + + | Phone | Unavailable | + + + Support + + +---------+ + | Name | Relationship | Address | Phone | + + +---------+ + | Ruby Au | ECON | Unknown | | + + +---------+ + Care Team Providers + +------+ + | Care Remedial Reading Teacher Name | Role | Phone | + +------+ + | Dennis Maddox | PCP | | + +------+ + Reason for Visit + +--------+ + | Reason | Onset | Comments | | | Date | | + +--------+ + | Telephone follow-up | 01/28/ | | | | 2014 | | + +--------+ + Encounter Details +--------+ + + + + | Date | Type | Department | Care Team | Description | +--------+ + + + + | 01/28/ | Telephone | [facility] | Julieta Mcgrath, | Telephone follow-up | | 2015 | | [place] | [address] | | | | | Neuro-Ophthalmology | [place], [place] | | | | | at [facility] [address] | [address] | | | | | Ave [facility] | [phone] | | | | | [place], | | | | | | | | | | | | [place], [place] | | | | | | [address] | | | | | | [phone] | | | +--------+ + + + [...] this encounter Miscellaneous Notes Telephone Encounter - Wick-Lindsay Burger - 01/28/2015 2:42 PM PSTPatient called donis stauffer a future appointment. She had previously seen Dr. Currie. Patient requests that she have 1 appointment to neuro op and not be prescribed Diamox. She was told by the ED that her shar nt is not working and she need to be evaluated by whoever put the shunt in. Explained to quincy rossi that she may require more that 1 visit and if she did have IIH then she may be prescrib ed Diamox. Patient is going to try and be seen by local eye doctor. Explained that if she i s left untreated and does have IIH she may be at risk of vision loss. Patient will contact t his clinic for any further follow up questions or if she decides to schedule an appointment. documented in this encounter Plan of Treatment Not on filedocumented as of this encounter Visit Diagnoses Not on filedocumented in this encounter"
--- OUTSIDE RECORDS SUMMARY | ~2020-07-30 | XMS | Encounter Summary ---
Demographics + + + | Address | [address] | | | [place] [address] | + + + | Home Phone [...] + | Author | [facility] | + + + | Organization | [facility] [...] Team Providers + +------+ + | Care Commissioner Of Conciliation Name | Role | Phone | + +------+ + | Brenden Benavides MD | PCP | | + +------+ + Reason for Visit + + + | Reason | Comments | + + + | Pseudotumor cerebri | | + + + Encounter Details +--------+---------+ + + + | Date | Type | Department | Care Team | Description | +--------+---------+ + + + | 01/30/ | Office | [facility] | Hay Hughes MD [address] | Papilledema | | 2006 | Visit | [place] | [address] | Associated with | | | | Oculoplastics at | [place], [place] | Increased | | | | [place] [address] [address] | [address] | Intracranial | | | | [address] | [phone] | Pressure; Enlarged | | | | Eye [place] | | Blind Spot; | | | | Building, 5th floor | | Bilateral Headaches | | | | [place] [address] | | | | | | [phone] | | | +--------+---------+ + + + [...] this encounter Progress Notes Ashley Jacobo - 01/30/2007 12:44 PM PSTpt consented,pre-op literature to pt Scheduled Left ONSF-GA @ [facility] 02/07/07Electronically signed by Ashley Jacobo at 7 12:44 PM PSTRomina Corral - 01/30/2007 12:20 PM PSTFormatting of this note might b e different from the original. Chief Complaint Patient presents with Pseudotumor cerebri Pt referred by Dr. Currie for surgical treatment for pseudotumor ceribri. Left eye is most af fected. Exam this morning with Dr. Currie. Pt complains of vision loss in left eye and headac he. 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 Eye meds: Diamox, Oxycontin, Robaxin. Visual Acuity: Paty Violet RE 20/20-1 LE 20/25-2 NI Pupil: OS pharmacologically dilated. Reviewed and edited above tech note after repeating pertinent examination. RE LE 0 0 0 0 0 0 0 0 Slit Lamp Exam: RE LE Lids: normal Conjunctiva: clear Cornea: clear AC: deep and quiet Iris: normal Lens: clear Lids: normal Conjunctiva: clear Cornea: clear AC: deep and quiet Iris: normal Lens: clear Bilateral papilledema. No hemorrhages or macular exudates. Encounter Diagnoses Code Name Primary? 377.01 Papilledema Associated with Increased Intracranial Pressure 368.42C Enlarged Blind Spot 784.0BD Bilateral Headaches Imp: 1. Pseudotumor cerebri with enlarged blind spot OS and chronic papilledema not responding t o maximal Diamox therapy. Plan: 1. Schedule left optic nerve sheath fenestration. ADWOA/EVIE. documented in this encounter Plan of Treatment Not on filedocumented as of this encounter Visit Diagnoses + + | Diagnosis | + + | Papilledema associated with increased intracranial pressure | + + | Enlarged blind spot Scotoma of blind spot area in visual field | + + | Bilateral headaches Headache | + + documented in this encounter"
--- OUTSIDE RECORDS SUMMARY | ~2020-07-30 | XMS | Encounter Summary ---
Demographics + + + | Address | [address] | | | [place] [address] | + + + | Home Phone [...] + + + | Author | [facility] [employer] [facility] | + + + | Organization | [facility] [employer] [facility] | + [...] Team Providers + +------+ + | Care Respiratory Tech Name | Role | Phone | [...] | | Ave [facility] | [place], [place] | | | | | Health and Healing, | [address] | | | | | [facility] | [phone] | | | | | floor [place], [place] | | | | | | [address] | | | | | | [phone] | | | +--------+ + + + [...]
--- OUTSIDE RECORDS SUMMARY | ~2020-07-30 | XMS | Encounter Summary ---
Demographics + + + | Address | [address] | | | [place] [address] | + + + | Home Phone | | + + + | Preferred Language | Unknown | + + + | Marital Status | | + + + | Anabaptism Affiliation | NON | + + + | Race | or | + + + | Ethnic Group | Not or | + + + Author + + + | Author | [facility] [employer] [facility] | + + + | Organization | [facility] [employer] [facility] | + + + | Address | Unknown | + + + | Phone | Unavailable | + + + Support + + +---------+ + | Name | Relationship | Address | Phone | + + +---------+ + | Ruby Au | ECON | Unknown | | + + +---------+ + Care Team Providers + +------+ + | Care Adjunct Psychology Professor Name | Role | Phone | [...] | Health and Healing, | [facility] [facility] | | | | | Building | [place], [place] | | | | | floor [place], [place] | [address] | | | | | [address] | | | | | | [phone] | | | +--------+---------+ + + + [...] this encounter Progress Notes Kiki Rosen - 07/22/2008 12:28 PM PDTThis 32 y.o. [...] on 08/01. PARQ held with patient all verna ball answered to her satisfaction. Consent signed and instructions given. documented in this encoun ter Plan of Treatment Not on filedocumented as of this encounter Visit Diagnoses + + | Diagnosis | + + | Pseudotumor cerebri - Primary Benign intracranial hypertension | + + documented in this encounter"
--- OUTSIDE RECORDS SUMMARY | ~2020-07-30 | XMS | Encounter Summary ---
Demographics + + + | Address | [address] | | | [place] [address] | + + + | Home Phone [...] | Organization | [facility] [...] Team Providers + +------+ + | Care Occupational Health And Safety Adviser Name | Role | Phone | + +------+ + PCP | Unavailable | + +------+ + Encounter Details +--------+ + + + + | Date | Type | Department | Care Team | Description | +--------+ + + + + | 10/04/ | Hospital | [facility] | | | | 1991 | Encounter | [facility] | | | | | | [facility] [address] | | | | | | [place], | | | | | | [place] [address] | | | | | | [phone] | | | +--------+ + + + [...]
--- OUTSIDE RECORDS SUMMARY | ~2020-07-30 | XMS | Encounter Summary ---
Demographics + + + | Address | [address] | | | [place] [address] | + + + | Home Phone [...] + | Organization | [facility] | [...] Providers + +------+ + | Care Senior Manufacturing Engineer Name | Role | Phone | + +------+ + PCP | Unavailable | + +------+ + Encounter Details +--------+ + + + + | Date | Type | Department | Care Team | Description | +--------+ + + + + | 09/20/ | Hospital | [facility] | | | | 1991 | Encounter | [facility] | | | | | | [facility] [address] | | | | | | [place], | | | | | | [place] [address] | | | | | | [phone] | | | +--------+ + + + [...]
--- OUTSIDE RECORDS SUMMARY | ~2020-07-30 | XMS | Encounter Summary ---
Demographics + + + | Address | [address] | | | [place] [address] | + + + | Home Phone | | + + + | Preferred Language | Unknown | + + + | Marital Status | | + + + | Baptism Affiliation | NON | + + + | Race | or | + + + | Ethnic Group | Not or | + + + Author + + + | Author | [facility] [employer] [facility] | + + + | Organization | [facility] [employer] [facility] | + + + | Address | [...] | | | Ave Center for | [place], [place] | | | | | Health and Healing, | [address] | | | | | [facility] | [phone] | | | | | floor [place], [place] | | | | | | [address] | | | | | | [phone] | | | +--------+---------+ + + + [...] + + documented in this encounter Progress Sam Pandey - 07/01/2008 3:27 PM PDT32 year old [...] wanted to have LP shunt instead of PRINTER REPAIR TECHNICIAN shunt because she d oes not weant her hair to be shaved. I will schedule her for lp shunt placemnt in next couple weeks. She agreed with this plan. Clinic time was more than 25 minutes and over half of it with the patient for coordination of the care and counseling. documented in this encounter Miscellaneous Notes Jonnie Madrigal - 07/08/2008 10:03 AM PDT documented in this encounter Plan of Treatment Not on filedocumented as of this encounter Visit Diagnoses + + | Diagnosis | + + | Pseudotumor cerebri - Primary Benign intracranial hypertension | + + documented in this encounter"
--- OUTSIDE RECORDS SUMMARY | ~2020-07-30 | XMS | Encounter Summary ---
Demographics + + + | Address | [address] | | | [place] [address] | + + + | Home Phone [...] + + | Author | [facility] [employer] [facility] | + + + | Organization | [facility] [employer] [facility] [...] Team Providers + +------+ + | Care Cartoon Animator Name | Role | Phone | + [...] | | | | Sky Maloney | [facility], | | | | | | [place], [place] | 10th Floor | | | | | | [address] | [place], [place] | | | | | | Phone: | [address] | | | | | | [phone] | Phone: | | | | | | Fax: | [phone] | | | | | | [phone] | Fax: | | | | | | | [phone] | +--------+--------+ + + + + Reason for Visit + + + | Reason | Comments | + + + | 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 | | + + + Encounter Details +--------+ + + + + | Date | Type | Department | Care Team | Description | +--------+ + + + + | 03/13/ | Emergency | [facility] Emergency | Abby Whyte MD | | | 2012 | | Department [address] | [address] | | | | [address] | [facility] | | | | | [facility] | [place], [place] | | | | | [place], [place] | [address] | | | | | [address] | [phone] | | | | | [phone] | | | | | | | [...] the irma aviva. Thanks for coming to [facility] today. Your head CT was negative for any new findings. The neurosurgeon did not think there was a malfunction in your shunt. The computer customer support specialist recommends you taking Diomox again and follow up in 1 week at [facility]. Please follow up with your doctor. 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 Goodwin, attending neurosurgeon general production manager, who agrees with the above. Hay Powell [...] done Previously followed by Dr. Currie at [facility] (last seen 02/2007) Previously on Diamox [...] sheath fenestra tion (by Dr. Celis at [facility] in 2006) and s/p multiple lumboperitoneal [...] convergence i nsufficiency as outpatient -Follow-up with [facility] (Comprehensive Division at [facility]) in 1-2 weeks Patient t o call [phone] for appointment. Call or return to Emergency Department sooner if sympto ms worsen. Peña Martin Resident PGY-2 [facility] 03/13/2013 documented in this encounter ED Notes [...] PLASMA (LAB) 0.83 0.60-1.10 mg/dL EGFR - GHANAIAN >60 >60 mL/min EGFR NON -GHANAIAN >60 >60 mL/min SODIUM, PLASMA (LAB) 141 [...] No acute intracranial abnormality. Attending Radiologists: KIP ROWLYE MD Author: KIP ROWLEY MD I have [...] Pt6 is being signed out to the [facility] ED t jelani. ED Medication Administration from 03/13/2013 1142 to 03/13/20132 Date/Time Order Dose Route Action 03/13/2013 0398 NaCl 0.9 % IV 1,000 mL Intravenous [...] lumbar shunt placed 2008 Drove here from [place], usually seen in [place] One week of "40 pound weight gain" [...] not recommend LP. Ru Roque MD, FACEP Auto Detailer, Emergency Medicine Ru Roque MD, FACEP Auto Detailer, Emergency Medicine u Roque MD - 03/13/2013 5:04 PM PDT 5:04 PM, AMOL ALTMAN MD, Resident Note Sign out from Dr. Lopez and Dr. Whyte at 5:04 PM. Situation: In summary, Annabella Au is a 37 y.o. female who presented with headache for 4 days w/ hx of JAILKEEPER shunt. Background: Significant Past medical History: Lumbar [...] PLASMA (LAB) 0.83 0.60-1.10 mg/dL EGFR - GHANAIAN >60 >60 mL/min EGFR NON -GHANAIAN >60 >60 mL/min SODIUM, PLASMA (LAB) 141 [...] cost clinic Return precautions given F/u with [facility] in 1-2 weeks Diomox 500mg BID Oxycodone Amol Altman MD R2 Emergency Medicine Resident gapito, Amol - 013 5:04 PM PDT 5:04 PM, AMOL ALTMAN MD, Resident Note Sign out from Dr. Lopez and Dr. Whyte at 5:04 PM. Situation: In summary, Annabella Au is a 37 y.o. female who presented with headache for 4 days w/ hx of JAILKEEPER shunt. Background: Significant Past medical History: Lumbar [...] PLASMA (LAB) 0.83 0.60-1.10 mg/dL EGFR - GHANAIAN >60 >60 mL/min EGFR NON -GHANAIAN >60 >60 mL/min SODIUM, PLASMA (LAB) 141 [...] cost clinic Return precautions given F/u with [facility] in 1-2 weeks Diomox 500mg BID Oxycodone Amol Altamn MD R2 Emergency Medicine Resident Marcelo Varma R N - 03/13/2013 12:00 PM PDTPatient c/o SOB, CP and weight gain of 41 lbs over 1 week per pat iedanish. Halle Posey EMT - 03/13/2013 11:52 AM PDTPt was scoped for [facility] on Tuesday. Electronically josiah d by SAURABH Anderson at 03/13/2013 11:52 AM Monica Posey EMT - 03/13/2013 11: 45 AM PDTPt CO head pain, vision disturbance, nausea, vomiting. Pt has a JAILKEEPER shunt. Pt states referring hospital says it [...] reports she has CT last Tuesday at [place], states " They said my shunt was dislodged". Pt is a/ox4.Electronically signed by Elisabeth Ortiz RN at 11:44 AM Elisabeth Bella RN - 03/13/2013 11:43 AM PDTPossible JAILKEEPER shunt malfunction, CAPONE x4 days. documented in this encounter Miscellaneous Notes Scan - Other, Faculty - 03/15/2013 9:40 AM PDTElectronically signed by Faculty Other at 9:40 AM PDTED Teaching Notes - Abby Whyte MD - 03/13/2013 8:46 PM PDTNo [facility] note - see shared [...] TOTH | [address] | [place], [place] | | | [place]O POINT OF CARE | [address] | [address] | | | TESTS | | | [...] [facility] | [address] | [place] [address] | | | SERVICES, CORE | PARK [...] | | | | | CHRISTIANO TORRES ([id number]) | | | | | | on 03/14/2013 10:35:55 AM | | | | + + + + + + + + | Specimen | + + | | + + + + + | Narrative | Performed At | + + + | Please click | [facility] DEPT OF | | on view image for the detailed interpretation from [employer] results. | CARDIOLOGY | + + + + + + + + | Performing | Address | City/State/Zipcode | Phone Number | | Organization | | | | + + + + + | [facility] | [address] | [place], [place] | | | CARDIOLOGY | [address] | [address] | | + + + + + [...] - [facility] | [address] | [place], [place] | | | NACHO POINT OF CARE | [facility] | [address] | | | TESTS | | | [...] | + + + + + | [facility] | [address] | [place] [address] | | | SERVICES, CORE | PARK [...] | + + + + + | [facility] | [address] [facility] | [place] [address] | | | SERVICES, CORE | SKY [...] | | | LABORATORY | | | GHANAIAN | | | SERVICES, | | | [...] | + + + + + | [facility] | [address] | [place] [address] | | | SERVICES, CORE | PARK [...] | + + + + + | [facility] | [address] | [place] [address] | | | SERVICES, CORE | PARK [...] + | [place] - [place] - | [address] | [place] [address] | | | [place] | | | [...] | + + + + + | [facility] | [address] | [place] [address] | | | SERVICES, CORE | SKY [...]
--- OUTSIDE RECORDS SUMMARY | ~2020-07-30 | XMS | Encounter Summary ---
Demographics + + + | Address | [address] | | | [place] [address] | + + + | Home Phone | | + + + | Preferred Language | Unknown | + + + | Marital Status | | + + + | Latter-Day Affiliation | NON | + + + | Race | or | + + + | Ethnic Group | Not or | + + + Author + + + | Author | [facility] | + + + | Organization | [facility] [facility] | + [...] Team Providers + +------+ + | Care Punchboard Inserter Name | Role | Phone | + [...] Cerebri | | 2006 | Visit | [facility] | Cassi Hammer | (Primary Dx) | | | | Oculoplastics at | [place], [place] | | | | | [address] | [address] | | | | | [address] | [phone] | | | | | [facility] | | | | | | [address] | | | | | | [place] [address] | | | | | | [phone] | | | +--------+---------+ + + + [...]
--- OUTSIDE RECORDS SUMMARY | ~2020-07-30 | XMS | Encounter Summary ---
Demographics + + + | Address | [address] | | | [place] [address] | + + + | Home Phone | | + + + | Preferred Language | Unknown | + + + | Marital Status | | + + + | Mu-Ism Affiliation | NON | + + + | Race | or | + + + | Ethnic Group | Not or | + + + Author + + + | Author | [facility] [employer] [facility] | + + + | Organization | [facility] [email or web address] [facility] [...] Providers + +------+ + | Care Bi Solutions Architect Name | Role | Phone | [...] | | [facility] | [place], [place] | | | | | Health and Healing, | [address] | | | | | Building [address] | [phone] | | | | | floor [place], [place] | | | | | | [address] | | | | | | [phone] | | | +--------+ + + + [...] 02/20/2013 1:43 PM PDTPatient seen [facility] for helicobacter gastritis, abdominal pain and dc'd from [facility] ED on ATBX regimen. No neurosurgical needs [...] sushant. She opted medical therapy through her engineering and operations director: increase in diamox dose; and l et [...] spots." Advised pt to go to the [facility] ED, pt states she is in [place], [place] and will go to her [facility] ED. Paged FLORA Paul and discussed documentation above. documented in this encounter Plan of Treatment Not on filedocumented as of this encounter Visit Diagnoses Not on filedocumented in this encounter
--- OUTSIDE RECORDS SUMMARY | ~2020-07-30 | XMS | Encounter Summary ---
Demographics + + + | Address | [address] | | | [place] [address] | + + + | Home Phone [...] + | Organization | [facility] | [...] Team Providers + +------+ + | Care Red Hat Linux Administrator Name | Role | Phone | + +------+ + PCP | Unavailable | + +------+ + Encounter Details +--------+ + + + + | Date | Type | Department | Care Team | Description | +--------+ + + + + | 10/12/ | Hospital | [facility] | | | | 1991 | Encounter | [facility] | | | | | | [facility] [address] | | | | | | [place], | | | | | | [place] [address] | | | | | | [phone] | | | +--------+ + + + [...]
--- OUTSIDE RECORDS SUMMARY | ~2020-07-30 | XMS | Encounter Summary ---
Demographics + + + | Address | [address] | | | [place] [address] | + + + | Home Phone [...] | Organization | [facility] [...] Team Providers + +------+ + | Care Micromatic Hone Operator Name | Role | Phone | + +------+ + PCP | Unavailable | + +------+ + Encounter Details +--------+ + + + + | Date | Type | Department | Care Team | Description | +--------+ + + + + | 08/21/ | Hospital | [facility] | | | | 1991 | Encounter | MED [facility] | | | | | | CENTER [address] | | | | | | [place] | | | | | | [address] | | | | | | [phone] | | | +--------+ + + + [...]
--- OUTSIDE RECORDS SUMMARY | ~2020-07-30 | XMS | Encounter Summary ---
Demographics + + + | Address | [address] | | | [place] [address] | + + + | Home Phone | | + + + | Preferred Language | Unknown | + + + | Marital Status | | + + + | Mormonism Affiliation | NON | + + + | Race | or | + + + | Ethnic Group | Not or | + + + Author + + + | Author | [facility] | + + + | Organization | [facility] | + + + | Address | Unknown | + + + | Phone | Unavailable | + + + Support + + +---------+ + | Name | Relationship | Address | Phone | + + +---------+ + | Ruby Au | ECON | Unknown | | + + +---------+ + Care Team Providers + +------+ + | Care Ditch Repairer Name | Role | Phone | [...] [facility] | | | | | | [facility] | | | | | | Health and Healing, | | | | | | Building | | | | | | floor [place], [place] | | | | | | [address] | | | | | | [phone] | | | +--------+ + + + [...]
--- OUTSIDE RECORDS SUMMARY | ~2020-07-30 | XMS | Encounter Summary ---
Demographics + + + | Address | [address] | | | [place] [address] | + + + | Home Phone [...] | Author | [facility] [employer] [facility] | + + + | Organization | [facility] [employer] [facility] | [...] Team Providers + +------+ + | Care Unclaimed Property Officer Name | Role | Phone | [...] | | | | | | | Bernie | | | | | | | [id number] | | | | | | | [facility] | | | | | | | [place], | | | | | | | [place] [address] | | | | | | | Phone: | | | | | | | [phone] | +--------+--------+ + + + + Encounter Details +--------+ + + + + | Date | Type | Department | Care Team | Description | +--------+ + + + + | 08/01/ | Hospital | [facility] [address] | Sam Pedroza MD | | | 2007 - | Encounter | Bernie | [address] | | | | | [id number] [facility] | [place], [place] | | | 08/02/ | | HOSPITAL [place], | [address] | | | 2007 | | [place] [address] | [phone] | | | | | [phone] | | | +--------+ + + + [...] in 2 weeks, please call for appointment: [phone] Condition On Discharge: Vital Signs at discharge [...] in 2 weeks, please call for appointment: [phone] Condition On Discharge: Vital Signs at discharge [...] Mode of Transportation: Car Accompanied by: Family/Responsible Alliance Party Discharge Nurse: Anni Oliva Date: 08/02/2008 [...] at this time. PT to sign off. altYessenia - 08/02/2008 9:00 AM PDTOT contact note: Spoke with pt who reports she has been up ambulating independently, has no ADL needs and st ates Dr. Pedroza agreed that she would not need therapies. Spoke with RN who endorses that pt has been up independently last pm and this am. OT to sign off at this time. Yessenia Nowak, OTR/ L [address]53 Tomasz Caldera Md - 02/2008 11:08 AM [...] CSF flow documented in this e ncounter Procedure Notes Other, Faculty - 08/02/2008 12:16 PM PDTAssociated Order(s): ANESTHESIA/SEDATION Other, [facility] - 08/02/2008 12:16 PM PDTAssociated Order(s): ANESTHESIA/SEDATION Other, Faculty - 12:16 PM PDT Other, Faculty - 08/02/2008 12:16 PM PDTAssociated Order(s): ANESTHES IA/SEDATION Tomasz Rice - 08/01/2008 12:00 AM PDTAssociated Order(s): OPERATION RECOR D [id number] [facility] [id number] Date: 08/01/2008 Attending Surgeon: Sam Pedroza M.D. Claim Agent(s): Pooja Al M.D. Preoperative Diagnosis(es): Pseudotumor cerebri. Postoperative Diagnosis(es): Pseudotumor cerebri. Procedures Performed: Placement of lumboperitoneal shunt. Anesthesia: General endotracheal anesthesia. Estimated Blood Loss: Minimal. Complications: None. Indications: This is a patient with pseudotumor cerebri, who underwent a previous LP shunt by Dr. Dinero, and this was met with some complications, namely CSF dripping from the patient's back, and the shunt was removed. She now presents for replacement of the CSF shunt. Findings: There was excellent CSF dripping in the distal peritoneal catheter prior to insertion into the peritoneal cavity. Procedure: The patient was identified and brought to the operating room. General endotracheal anesthesia was induced. The patient was positioned in the lateral decubitus position with left side up. All pressure points were padded. The bourgeois bag was then deflated. The lumbar and the patient's previous peritoneal wound were then prepped and draped in the usual fashion. Local was infiltrated with 0.25% Marcaine with epinephrine. The previous incision was then incised. In the lumbar area, the incision was taken down to the lumbar fascia. A tunneler was then used to tunnel from the back incision into the abdominal incision. At this point, the tunneler was removed. A Tuohy needle was then inserted in the interlaminar space. Clear CSF fluid was obtained. The lumboperitoneal catheter was inserted through the Tuohy needle. The Tuohy needle was removed, and the lumboperitoneal catheter was then passed through the tunneler into the abdominal wound. Of note, the remaining catheter was too short to insert into the abdominal wound. Therefore, a straight connector was used to connect a new LP shunt through the wound that was just placed. In the abdominal wound, the incision was taken down. There was some scarring; however, the incision was just moved down inferiorly slightly and taken down into the peritoneum. The peritoneum was lifted with tonsils and then gently incised. A [place] 4 was then easily fed through it, and a piece of bowel was seen through this hole. The peritoneal catheter was then checked for dripping CSF, and it appeared to be spontaneously dripping well. It was then inserted into the hole made into the peritoneum, and it fed very easily. At this point, both wounds were copiously irrigated. A collar was placed to secure the catheter to both the lumbar fascia and the abdominal fascia in the back. The subcutaneous tissue was closed using 3-0 Vicryl sutures, and the skin was closed using 4-0 Rapide. The wound was dressed with bacitracin and Telfa. In the abdomen, the fascia was closed using 0 Vicryl sutures. The collar was secured to the fascia using 2-0 silk stitch. Subcutaneous tissue was closed using 3-0 Vicryl sutures, and the skin was closed using 4-0 Rapide. This wound was also dressed with bacitracin and Telfa. Cover-roll was also applied to both the wounds. The patient was then turned supine extubated and taken to the postoperative recovery. Dr. Sam Pedroza was present for the essential aspects of this case including insertion of the lumboperitoneal catheter. Tomasz Rice M.D. Sam Pedroza M.D. SYBIL / LANETTE [id number] / [id number] / [id number] / am Pedroza 02/2008 12:00 AM PDTAssociated Order(s): TEACHING PHYSICIAN [id number] [place] [id number] Date: 08/01/2008 Attending Surgeon: Sam Pedroza M.D. Claim Agent(s): Pooja Al M.D. Preoperative Diagnosis(es): Pseudotumor cerebri. Postoperative Diagnosis(es): Pseudotumor cerebri. Procedures Performed: Placement of lumboperitoneal shunt. Anesthesia: General endotracheal anesthesia. Complications: None. I, Dr. Sam Pedroza, was in the OR during the critical portions of this procedure which included the placement of the lumbar drain into the subarachnoid space and then exposure of the peritoneal site and placement of the lumboperitoneal shunt into the peritoneal space without any complication. A full operative report will be dictated by Dr. Palomo Jansen. Sam Pedroza M.D. AD / [id number] / [id number] / [id number] / [id number] ther, Faculty - 07/24/2008 9:44 AM PDT Other, Faculty - 07/24/2008 9:44 AM PDT Other, Faculty - 07/24/2008 9:44 A M PDT Other, Faculty - 07/24/2008 9:44 AM PDT documented in this encounter Miscellaneous Notes Scan - Other, Faculty - 08/02/2008 12:16 PM PDT Scan - Other, Faculty - 08/02/2008 12:16 P M PDT Scan - Other, Faculty - 08/02/2008 12:16 PM PDT Scan - Other, Faculty - 08/02/2008 1 2:16 PM PDT Scan - Other, Faculty - 08/02/2008 12:16 PM PDT Scan - Other, Faculty - 2007 12:16 PM PDT Scan - Other, Faculty - 08/02/2008 12:16 PM PDT Scan - Other, Faculty - 08/02/2008 12:16 PM PDT documented in this encounter Plan of [...] | + + | Skyla, Faculty - 08/02/2008 12:16 PM PDT | [...] | | | | | VIEWS | 08/01/ | | | | | | 17:26:00HISTORY: [...] + + | Performing | Address | City[facility] | Phone Number | | Organization | | | | + +---------+ + + | [facility] DEPARTMENT OF | | | | | RADIOLOGY | | | | + +---------+ + + OPERATION RECORD (08/01/2008 12:00 AM PDT) + + + | Narrative | Performed At | + + + | [id number] | | | [id number] | | | [place] [id number] Date: | | | 08/01/2008 Attending Surgeon: | | | Sam Pedroza M.D. Claim Agent(s): | | | Tomasz Rice M.D. | [...] who underwent a previous LP shunt by . | | | Rosette, and this was [...] | tonsils and then gently incised. A [place] 4 was then easily fed | | [...] Rice | | | Pooja Pedroza M.D. KG / LANETTE [id number] / | | | [id number] / [id number] / | | + + + + + | Procedure Note | + + | Krystal Rushing, Tomasz - 08/01/2008 12:00 AM PDT [id number] | | [id number] PAT [place]FF[place] S | | [id number] Date: 08/01/2008 Attending Surgeon: Sam | | Pooja Pedroza Claim Agent(s): Tomasz Rice M.D. | | Palomo Jansen [...] tonsils and | | thengently incised. A [place] 4 was then easily fed through it, [...] supine extubated and taken to the postoperativerecovery. | | Sam Pedroza was present for the essential aspects of this caseincluding insertion of | | the lumboperitoneal catheter. Tomasz Rice M.D. Sam Pedroza M.D. KG / | | [id number] / [id number] / [id number] / T: 08/02/2008 | |dripping from the [...] tonsils and then | |gently incised. A [place] 4 was then easily fed through it, [...] | | | |KG / HS | |[id number] / [id number] / [id number] / | | | | | | | | | | | | | | | | | | | | | + + TEACHING PHYSICIAN (08/01/2008 12:00 AM PDT) + + + | Narrative | Performed At | + + + | [id number] | | | [id number] | | | [place]t [id number] | | | Date: 08/01/2008 Attending Surgeon: | | | Sam Pedroza M.D. Claim Agent(s): | | | Tomasz Rice M.D. | [...] by Dr. Palomo Jansen. Sam | | Leif Pedroza M.D. / [id number] / [id number] / [id number] / [id number] D: | | | 08/01/2008 | | + + + + + | Procedure Note | + + | Sam Pedroza MD - 08/01/2008 12:00 AM PDT [id number] | | [id number] [facility] [place] | | [id number] Date: 08/01/2008ttending Surgeon: Sam | | Pooja Pedroza Claim Agent(s): Tomasz Rice M.D. | | Palomo Jansen [...] | Bisi. Sam Pedroza M.D. AD / [id number] / [id number] / [id number] / [id number]: | | 08/01/2008T: 08/01/2008 | | | [...] operative report will be dictated by Dr. Palomo Yadav |Inderjit. | | | | | | | | | | | | | | | | | |Sam Pedroza M.D. | | | | | |AD / HS | |[id number] / [id number] / [id number] / [id number] | | | | | | | [...] +---+---+ + +-------+ + +---+---+ | senna-docusate (aka SENLÁZAROOT S) | Given | 08/02/20 | 1 tablet [...]
--- OUTSIDE RECORDS SUMMARY | ~2020-07-30 | XMS | Encounter Summary ---
Demographics + + + | Address | [address] | | | [place] [address] | + + + | Home Phone [...] + + + | Author | [facility] | | | and [place] | + + + | Organization | [facility] | | [...] Team Providers + +------+ + | Care Nsh Teacher Name | Role | Phone | + +------+ + PCP | Unavailable | + +------+ + Encounter Details +--------+ + + + + | Date | Type | Department | Care Team | Description | +--------+ + + + + | 07/14/ | Hospital | [facility] | | | | 1998 | Encounter | MED CTR EMER[facility]ENCY | | | | | | CENTER [address] | | | | | | [place] | | | | | | [address] | | | | | | [phone] | | | +--------+ + + + [...]
--- OUTSIDE RECORDS SUMMARY | ~2020-07-30 | XMS | Encounter Summary ---
Demographics + + + | Address | [address] | | | [place] [address] | + + + | Home Phone [...] | Author | [facility] K[facility] | + + + | Organization | [facility] [employer] [facility] | [...] Team Providers + +------+ + | Care Navigation Officer Name | Role | Phone | [...] | | [place] Mailcode:OP14B | [place], | | | | | [employer] | [place] [address] | | | | | [place], [place] | | | | | | [address] | | | | | | [phone] | | | +--------+ + + + [...]
--- OUTSIDE RECORDS SUMMARY | ~2020-07-30 | XMS | Encounter Summary ---
Demographics + + + | Address | [address] | | | [place] [address] | + + + | Home Phone [...] Organization | [facility] [...] Team Providers + +------+ + | Care Telecommunications Network Engineer Name | Role | Phone | + +------+ + PCP | Unavailable | + +------+ + Encounter Details +--------+ + + + + | Date | Type | Department | Care Team | Description | +--------+ + + + + | 04/24/ | Hospital | [facility] | | | | 1991 | Encounter | MED CTR EMERGENCY | | | | | | CENTER [address] | | | | | | [place] | | | | | | [address] | | | | | | [phone] | | | +--------+ + + + [...]
--- OUTSIDE RECORDS SUMMARY | ~2020-07-30 | XMS | Encounter Summary ---
Demographics + + + | Address | [address] | | | [place] [address] | + + + | Home Phone [...] | Organization | [facility] [...] Providers + +------+ + | Care Customer Service Dispatcher Name | Role | Phone | + +------+ + PCP | Unavailable | + +------+ + Encounter Details +--------+ + + + + | Date | Type | Department | Care Team | Description | +--------+ + + + + | 07/19/ | Hospital | [facility] | Vern Rooney, | | | 1990 - | Encounter | MED CTR MED ONC | MD [address] | | | | | [address] | [place] | | | 07/21/ | | [place] [address] | [address] | | | 1990 | | [phone] | | | +--------+ + + + [...]
--- OUTSIDE RECORDS SUMMARY | ~2020-07-30 | XMS | Encounter Summary ---
Demographics + + + | Address | [address] | | | [place] [address] | + + + | Home Phone [...] + | Author | [facility] | + + + | Organization | [facility] [employer] [facility] | + + + | Address | Unknown | + + + | Phone | Unavailable | + + + Support + + +---------+ + | Name | Relationship | Address | Phone | + + +---------+ + | Ruby Au | ECON | Unknown | | + + +---------+ + Care Team Providers + +------+ + | Care Telemetry Monitor Name | Role | Phone | + +------+ + | Brenden Benavides MD | PCP | | + +------+ + Encounter Details +--------+ + + + + | Date | Type | Department | Care Team | Description | +--------+ + + + + | 02/21/ | Telephone | [facility] | [address] | | | 2006 | | [place] | [address] | | | | | Oculoplastics at | [facility], [place] | | | | | Maicol Perez [address] | [address] | | | | | [address] | | | | | | [place] | | | | | | [facility], 5th floor | | | | | | [place] [address] | | | | | | [phone] | | | +--------+ + + + [...] the Vicodin prescription to the pharmacist in [place], he asked me if I was calling [...]
--- OUTSIDE RECORDS SUMMARY | ~2020-07-30 | XMS | Encounter Summary ---
Demographics + + + | Address | [address] | | | [place] [address] | + + + | Home Phone | | + + + | Preferred Language | Unknown | + + + | Marital Status | | + + + | Yazidi Affiliation | NON | + + + | Race | or | + + + | Ethnic Group | Not or | + + + Author + + + | Author | [facility] [email or web address] [facility] | + + + | Organization | [facility] [employer] [facility] | + + + | Address | Unknown | + + + | Phone | Unavailable | + + + Support + + +---------+ + | Name | Relationship | Address | Phone | + + +---------+ + | Ruby Au | ECON | Unknown | | + + +---------+ + Care Team Providers + +------+ + | Care Hands Assembler Name | Role | Phone | [...] Cerebri | | 2006 | Visit | [place] | | (Primary Dx) | | | | Neuro-Ophthalmology | | | | | | [address] [facility] | | | | | | Mailcode: PATTI | | | | | | [place] [address] | | | | | | [phone] | | | +--------+---------+ + + + [...] note might be different from the becca tsarkey. Neuro-Ophthalmology Return Patient Evaluation 10/13/2006 Referred by: [...] Brad Currie MD Neuro-Ophthalmology and Cerebrovascular Disease Auto Garage Attendant of Ophthalmology, Neurology, and Neurosurgery documented in [...]
--- OUTSIDE RECORDS SUMMARY | ~2020-07-30 | XMS | Encounter Summary ---
Demographics + + + | Address | [address] | | | [place] [address] | + + + | Home Phone [...] + | Author | [facility] [employer] [facility] | + + + | Organization | [facility] [employer] [facility] | + [...] + +------+ + | Care Medical Records Tech Name | Role | Phone | [...] | | | | | [place] for | [address] | | | | | Health and Healing, | [facility] [place] | | | | | | [address] | | | | | Floor [place], [place] | | | | | | [address] | | | | | | [phone] | | | +--------+--------+ + + + [...]
--- OUTSIDE RECORDS SUMMARY | ~2020-07-30 | XMS | Encounter Summary ---
Demographics + + + | Address | [address] | | | [place] [address] | + + + | Home Phone [...] + | Author | [facility] [employer] [facility] [employer] [facility] | + + + | Organization | [facility] [employer] [facility] | + [...] Providers + +------+ + | Care Chemistry Instructor Name | Role | Phone | + +------+ + | Dennis Maddox | PCP | | + +------+ + Encounter Details +--------+ + + + + | Date | Type | Department | Care Team | Description | +--------+ + + + + | 03/15/ | Telephone | [facility] | Ronaldo Martin MD | | | 2012 | | [place]/Ophthalmol | [facility] [place] | | | | | ogjaneen at [facility] [address] | [address] [place] [address] | | | | | [facility] | [place] [address] | | | | | Health and Healing, | [phone] | | | | | [facility] | | | | | | Floor [place], [place] | | | | | | [address] | | | | | | [phone] | | | +--------+ + + + [...]
--- OUTSIDE RECORDS SUMMARY | ~2020-07-30 | XMS | Encounter Summary ---
Demographics + + + | Address | [address] | | | [place] [address] | + + + | Home Phone [...] + + | Author | [facility] | + + + | Organization | [facility] [employer] [facility] [...] Providers + +------+ + | Care Assistant Corporate Secretary Name | Role | Phone | + [...] Cerebri; | | 2006 | Visit | [place] | Cassi Clark | Pain in or Around | | | | Oculoplastics at | [place], [place] | Eye | | | | [facility] [address] | [address] | | | | | [address] | [phone] | | | | | Eye [place] | | | | | | [facility] floor | | | | | | [place] [address] | | | | | | [phone] | | | +--------+---------+ + + + [...] to be seen here or by an congressional aide in [facility], but she says she does not have transportation. I will call in Vicodin #20, pt to call i mmediately if there is any worsening. Pt states lucho lump in left sikhism is gone. No pain. Pt. Had cough [...]
--- OUTSIDE RECORDS SUMMARY | ~2020-07-30 | XMS | Encounter Summary ---
Demographics + + + | Address | [address] | | | [place] [address] | + + + | Home Phone [...] Team Providers + +------+ + | Care Alligator Trapper Name | Role | Phone | + +------+ + PCP | Unavailable | + +------+ + Encounter Details +--------+ + + + + | Date | Type | Department | Care Team | Description | +--------+ + + + + | 10/25/ | Hospital | [facility] | | | | 1991 | Encounter | MED CTR EMERGENCY | | | | | | CENTER [address] | | | | | | [place] | | | | | | [address] | | | | | | [phone] | | | +--------+ + + + [...]
--- OUTSIDE RECORDS SUMMARY | ~2020-07-30 | XMS | Encounter Summary ---
Demographics + + + | Address | [address] | | | [place] [address] | + + + | Home Phone | | + + + | Preferred Language | Unknown | + + + | Marital Status | | + + + | Rastafari Affiliation | NON | + + + | Race | or | + + + | Ethnic Group | Not or | + + + Author + + + | Author | [facility] [employer] [facility] | + + + | Organization | [facility] [employer] 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
--- OUTSIDE RECORDS SUMMARY | ~2020-07-30 | XMS | Encounter Summary ---
Demographics + + + | Address | [address] | | | [place] [address] | + + + | Home Phone [...] | Organization | [facility] [...] Providers + +------+ + | Care Supervisor Finishing Name | Role | Phone | + +------+ + PCP | Unavailable | + +------+ + Encounter Details +--------+ + + + + | Date | Type | Department | Care Team | Description | +--------+ + + + + | 06/19/ | Hospital | [facility] | | | | 1991 | Encounter | [facility] | | | | | | [facility] [address] | | | | | | [place], | | | | | | [place] [address] | | | | | | [phone] | | | +--------+ + + + [...]
--- OUTSIDE RECORDS SUMMARY | ~2020-07-30 | XMS | Encounter Summary ---
Demographics + + + | Address | [address] | | | [place] [address] | + + + | Home Phone [...] Team Providers + +------+ + | Care General Merchandise Salesperson Name | Role | Phone | + +------+ + PCP | Unavailable | + +------+ + Encounter Details +--------+ + + + + | Date | Type | Department | Care Team | Description | +--------+ + + + + | 05/18/ | Hospital | [facility] | | | | 1991 | Encounter | [facility] | | | | | | [facility] [address] | | | | | | [place], | | | | | | [place] [address] | | | | | | [phone] | | | +--------+ + + + [...]
--- OUTSIDE RECORDS SUMMARY | ~2020-07-30 | XMS | Encounter Summary ---
Demographics + + + | Address | [address] | | | [place] [address] | + + + | Home Phone [...] Team Providers + +------+ + | Care Spool Worker Name | Role | Phone | + +------+ + PCP | Unavailable | + +------+ + Encounter Details +--------+ + + + + | Date | Type | Department | Care Team | Description | +--------+ + + + + | 08/10/ | Hospital | [facility] | | | | 1990 | Encounter | MED CTR EMERGENCY | | | | | | CENTER [address] | | | | | | [place] | | | | | | [address] | | | | | | [phone] | | | +--------+ + + + [...]
--- OUTSIDE RECORDS SUMMARY | ~2020-07-30 | XMS | Encounter Summary ---
Demographics + + + | Address | [address] | | | [place] [address] | + + + | Home Phone [...] Author + + + | Author | [facility] | | | and [place] | + + + | Organization | [facility] | | | [...] Team Providers + +------+ + | Care Wound/Ostomy Clinical Nurse Specialist Name | Role | Phone | + +------+ + PCP | Unavailable | + +------+ + Encounter Details +--------+ + + + + | Date | Type | Department | Care Team | Description | +--------+ + + + + | 10/27/ | Hospital | [facility] | | | | 1990 | Encounter | MED CTR EMERGENCY | | | | | | CENTER [address] | | | | | | [place] | | | | | | [address] | | | | | | [phone] | | | +--------+ + + + [...]
--- OUTSIDE RECORDS SUMMARY | ~2020-07-30 | XMS | Encounter Summary ---
Demographics + + + | Address | [address] | | | [place] [address] | + + + | Home Phone [...] + | Author | [facility] | + + + | Organization | [facility] [employer] [facility] | + + + | Address | Unknown | + + + | Phone | Unavailable | + + + Support + + +---------+ + | Name | Relationship | Address | Phone | + + +---------+ + | Ruby Au | ECON | Unknown | | + + +---------+ + Care Team Providers + +------+ + | Care Pulp Grinder Name | Role | Phone | [...] Other | | 2005 | | [facility] | PA-C [address] | | | | | Rd Mailcode:OP14B | [place], [place] | | | | | [facility] | [id number] | | | | | [place], [place] | | | | | | [address] | | | | | | [phone] | | | +--------+ + + + [...] it all to you. Her # is [phone]. Barb documented in this e ncounter Plan of Treatment Not on filedocumented as of this encounter Visit Diagnoses Not on filedocumented in this encounter"
--- OUTSIDE RECORDS SUMMARY | ~2020-07-30 | XMS | Encounter Summary ---
Demographics + + + | Address | [address] | | | [place] [address] | + + + | Home Phone [...] Team Providers + +------+ + | Care Category Development Manager Name | Role | Phone | + +------+ + PCP | Unavailable | + +------+ + Encounter Details +--------+ + + + + | Date | Type | Department | Care Team | Description | +--------+ + + + + | 09/30/ | Hospital | [facility] | | | | 1991 | Encounter | MED CTR WOMENS | | | | | | [facility]ALTH [facility] [address] | | | | | | [place], | | | | | | [place] [address] | | | | | | [phone] | | | +--------+ + + + [...]
--- OUTSIDE RECORDS SUMMARY | ~2020-07-30 | XMS | Encounter Summary ---
Demographics + + + | Address | [address] | | | [place] [address] | [...] + + | Author | [facility] | + + + | Organization | [facility] Umbrella Here [facility] [...] Team Providers + +------+ + | Care Electronic Warfare Operator Name | Role | Phone | [...] | | | Ave Center for | [place], [place] | Encounters | | | | Health and Healing, | [address] | | | | | [facility] | [phone] | | | | | floor [place], [place] | | | | | | [address] | | | | | | [phone] | | | +--------+ + + + [...] Pedroza last approved the rx 05/01/08 for Drifton 10-325mg, #90, take 1 tablet every 4-6 hours as needed for pain. I verified this information with the [facility] pharmacy. Kiki approved the rx for Drifton 10-325mg, #80, take 1 tablet every 4-6 hours prn, No refills. This was called into [facility] pharmacy, spoke kirt sandra Garcia, . Please [...]
--- OUTSIDE RECORDS SUMMARY | ~2020-07-30 | XMS | Encounter Summary ---
Demographics + + + | Address | [address] | | | [place] [address] | + + + | Home Phone [...] Author + + + | Author | [facility] [employer] [facility] | + + + | Organization | [facility] [employer] [facility] | + [...] Providers + +------+ + | Care Education Program Manager Name | Role | Phone [...] | | | Ave [facility] for | [place], [place] | | | | | Health and Healing, | [address] | | | | | Building | [phone] | | | | | floor [place], [place] | | | | | | [address] | | | | | | [phone] | | | +--------+ + + + [...] Kiki Rosen PA - 12/24/2008 3:02 PM [employer] says to try again later. No [...]
--- OUTSIDE RECORDS SUMMARY | ~2020-07-30 | XMS | Encounter Summary ---
Demographics + + + | Address | [address] | | | [place] [address] | + + + | Home Phone [...] + + + | Author | [facility] [employer] [facility] | + + + | Organization | [facility] [employer] [facility] | + + + | Address | Unknown | + + + | Phone | Unavailable | + + + Support + + +---------+ + | Name | Relationship | Address | Phone | + + +---------+ + | Ruby Au | ECON | Unknown | | + + +---------+ + Care Team Providers + +------+ + | Care Radio Repairman Name | Role | Phone | + +------+ + | Yeison Simms MD | PCP | Unavailable | + +------+ + Reason for Visit +--------+--------+ + | Reason | Onset | Comments | | | Date | | +--------+--------+ + | Other | 05/01/ | | | | 2007 | | [...] Ave | | | | | [facility] | [place], [place] | | | | | Health and Healing, | [address] | | | | | [facility] | [phone] | | | | | floor [place], [place] | | | | | | [address] | | | | | | [phone] | | | +--------+ + + + [...] - 05/07/2008 10:42 AM PDTSurgery is today. WIll addre ss medication needs in-house. P DTTelephone Encounter - Monica Paz - 05/01/2008 2:11 PM PDTPt. Would like a refill of Xanax 1mg called [facility] to [facility] [phone] signed by Monica sykes at 05/01/2008 2:11 PM PDTdocumented in this encounter Plan of Treatment Not on filedocumented as of this encounter Visit Diagnoses Not on filedocumented in this encounter"
--- OUTSIDE RECORDS SUMMARY | ~2020-07-30 | XMS | Encounter Summary ---
Demographics + + + | Address | [address] | | | [place] [address] | + + + | Home Phone [...] + + + | Author | [facility] | + + + | Organization | [facility] [employer] [facility] | + + [...] Providers + +------+ + | Care Passenger Conductor Name | Role | Phone | + [...] | Headache | | 2005 | | [place]/Ophthalmol | MD Jordin | | | | | leon at [facility] [address] | | | | | | [address] | | | | | | Health and Healing, | | | | | | Building | | | | | | Floor [place], [place] | | | | | | [address] | | | | | | [phone] | | | +--------+ + + + [...] she cannot find a ride to a [employer] augor tonight, and that she cannot make [...] was discussed and plan formulated with Dr. Doonhue. BRYAN WILSON MD Ophthalmology Resident Physician [facility] documented in this en counter Plan of Treatment Not on filedocumented as of this encounter Visit Diagnoses Not on filedocumented in this encounter
--- OUTSIDE RECORDS SUMMARY | ~2020-07-30 | XMS | Encounter Summary ---
Demographics + + + | Address | [address] | | | [place] [address] | + + + | Home Phone [...] Organization | [facility] [...] Team Providers + +------+ + | Care Devulcanizer Charger Name | Role | Phone | + +------+ + PCP | Unavailable | + +------+ + Encounter Details +--------+ + + + + | Date | Type | Department | Care Team | Description | +--------+ + + + + | 01/01/ | Hospital | [facility] | [place] | | | 2009 | Encounter | MED CTR EMERGENCY | Brad Yu MD [address] | | | | | [place] [address] | [facility] | | | | | [place] | [place] [address] | | | | | [address] | [phone] | | | | | [phone] | | | +--------+ + + + [...]
--- OUTSIDE RECORDS SUMMARY | ~2020-07-30 | XMS | Encounter Summary ---
Demographics + + + | Address | [address] | | | [place] [address] | + + + | Home Phone [...] Author | [facility] [employer] [facility] | + + + | Organization | [facility] [employer] [facility] | [...] Team Providers + +------+ + | Care Pharmaceutical Scientist Name | Role | Phone | + +------+ + | Dennis Maddox | PCP | | + +------+ + Encounter Details +--------+ + + + + | Date | Type | Department | Care Team | Description | +--------+ + + + + | 02/28/ | Emergency | [facility] Emergency | | | | 2013 - | | Department [address] | | | | | [address] | | | | 03/01/ | | [facility] | | | | 2013 | | [place], [place] | | | | | | [address] | | | | | | [phone] | | | +--------+ + + + [...] 11:55 PM PDTBoth 's were advised that [facility] I S CURRENTLY AT CAPACITY FOR ALL [...]
--- OUTSIDE RECORDS SUMMARY | ~2020-07-30 | XMS | Encounter Summary ---
Demographics + + + | Address | [address] | | | [place] [address] | + + + | Home Phone [...] Organization | [facility] [...] Providers + +------+ + | Care General Activities Therapist Name | Role | Phone | + +------+ + PCP | Unavailable | + +------+ + Encounter Details +--------+ + + + + | Date | Type | Department | Care Team | Description | +--------+ + + + + | 09/30/ | Hospital | [facility] | | | | 1990 | Encounter | MED CTR EMERGENCY | | | | | | CENTER [address] | | | | | | [place] | | | | | | [address] | | | | | | [phone] | | | +--------+ + + + [...]
--- OUTSIDE RECORDS SUMMARY | ~2020-07-30 | XMS | Encounter Summary ---
Demographics + + + | Address | [address] | | | [place] [address] | + + + | Home Phone [...] + +------+ + | Care Quality Control Scientist Name | Role | Phone | + +------+ + PCP | Unavailable | + +------+ + Encounter Details +--------+ + + + + | Date | Type | Department | Care Team | Description | +--------+ + + + + | 03/14/ | Hospital | [facility] | Pancho Gonzalez | | | 2012 | Encounter | HOSPITAL EMERGENCY | MD Joey [address] [facility] | | | | | CENTER [address] | [facility] [address] | | | | | [address] [place] | [place], [place] | | | | | [address] | [id number] | | | | | [phone] | | | +--------+ + + + [...]
--- OUTSIDE RECORDS SUMMARY | ~2020-07-30 | XMS | Encounter Summary ---
Demographics + + + | Address | [address] | | | [place] [address] | + + + | Home Phone [...] | Author | [facility] | + + + | Organization | [facility] [employer] [facility] [...] Team Providers + +------+ + | Care Hearing And Speech Assistant Name | Role | Phone | + +------+ + | Pedro Luis Sams MD | PCP | | + +------+ + Encounter Details +--------+ + + + + | Date | Type | Department | Care Team | Description | +--------+ + + + + | 10/19/ | Telephone | [facility] | Funmilayo Osorio MD | | | 2010 | | [place]/Ophthalmol | [address] | | | | | loen at [facility] [address] | [place], [place] | | | | | [address] [facility] | [address] | | | | | Health and Healing, | [phone] | | | | | | | | | | | Floor [place], [place] | | | | | | [address] | | | | | | [phone] | | | +--------+ + + + [...] patient is currently unable to travel to [place] since she is caring for her mother who is ill. The patient has an appt scheduled with an consulting technical manager in her local area next week. I [...] her to see the financial counselor at [facility]. In the mean time the patient agreed to let me know about any changes in her vision or worse nereida headaches. She was told to go to the ER if necessary. Funmilayo Osorio MD Theater Company Producer [facility] documented in this encou nter Plan of Treatment Not on filedocumented as of this encounter Visit Diagnoses Not on filedocumented in this encounter"
--- OUTSIDE RECORDS SUMMARY | ~2020-07-30 | XMS | Encounter Summary ---
Demographics + + + | Address | [address] | | | [place] [address] | + + + | Home Phone [...] + +------+ + | Care Screw Machine Tool Setter Name | Role | Phone | + +------+ + PCP | Unavailable | + +------+ + Encounter Details +--------+ + + + + | Date | Type | Department | Care Team | Description | +--------+ + + + + | 09/07/ | Hospital | [facility] | | | | 1991 | Encounter | MED CTR EMERGENCY | | | | | | CENTER [address] | | | | | | [place] | | | | | | [address] | | | | | | [phone] | | | +--------+ + + + [...]
--- OUTSIDE RECORDS SUMMARY | ~2020-07-30 | XMS | Encounter Summary ---
Demographics + + + | Address | [address] | | | [place] [address] | + + + | Home Phone [...] + + | Author | [facility] | + + + | Organization | [facility] [...] Providers + +------+ + | Care Gas Tender Name | Role | Phone | [...] Cerebri | | 2007 | Visit | [place] | | | | | | Photography at | | | | | | [facility] [address] | | | | [address] | | | | | | Eye [place], 4th | | | | | | floor [place], [place] | | | | | | [address] | | | +--------+---------+ + + + [...] Pangjulisa was seen in the [facility] [place] Photography/Ultrasound Department today, 11/30/2006, for ultrasound OU [...]
--- OUTSIDE RECORDS SUMMARY | ~2020-07-30 | XMS | Encounter Summary ---
Demographics + + + | Address | [address] | | | [place] [address] | + + + | Home Phone [...] + + | Author | [facility] [employer] [facility] | + + + | Organization | [facility] [employer] [facility] | + [...] Team Providers + +------+ + | Care Anesthesiology Fellow Name | Role | Phone | [...] [address] | | | | | | [facility] for | | | | | | Health and Healing, | | | | | | Building | | | | | | floor [place], [place] | | | | | | [address] | | | | | | [phone] | | | +--------+ + + + [...] she was supposed to go to the [facility] ED for a dislodged LPS and [...] if she s able to get to [facility]. Because she inquired, I made clear we cannot help her tra nsport here or evaluate her over the phone. She states she didn t make her Tuesday appt as she had what sounds to be an upper endoscopy to eval for H pylori and the doctor who did th at kept her overnight. She also states she will try to get to [facility] near here. documented i n this encounter Plan of Treatment Not on filedocumented as of this encounter Visit Diagnoses Not on filedocumented in this encounter"
--- OUTSIDE RECORDS SUMMARY | ~2020-07-30 | XMS | Encounter Summary ---
Demographics + + + | Address | [address] | | | [place] [address] | + + + | Home Phone [...] | [facility] [employer] [facility] | + + + | Organization | [facility] [employer] [facility] [...] Team Providers + +------+ + | Care Used Car Make Ready Mechanic Name | Role | Phone | [...] + | 08/24/ | Emergency | [facility] Emergency | [place], | | | 2010 | | Department [address] | [address] | | | | | [address] | MD [address] | | | | | [facility] | Dilshad [place] | | | | | [place], [place] | [place], [place] | | | | | [address] | [address] | | | | | [phone] | [phone] | | | | | | | [...] sheath fenestrat ion (by Dr. Hughes at [facility] in 2006) and s/p lumboperitoneal shunt [...] worth. She has not seen a n gold leaf printer in years - last dilated exam was several years ago. Per chart review, pt used to be followed by Dr. Currie at [facility] neuro-op; last seen in 02/2007 w hen she was on Diamox 500mg BID. 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 Prior to her ONSF OS, she was on Diamox 1000mg BID. POH: Pseudotumor cerebri dx [address] Currie at [facility] (last seen 02/2007) S/p ONSF OS [...] sheath fenestra tion (by Dr. Hughes at [facility] in 2006) and s/p lumboperitoneal shunt failure presenting to ED with severe headache and transient visual obscurations OS. 1. 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 appears to have now failed. 2. 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 -Will start Diamox 1 gram po BID, can titrate dose up in the future if symptoms not relieve d -Will plan for outpatient disc photos, visual field testing -Defer to neurosurgery regarding plans for shunt revision -Follow-up with Dr. Klein at [facility] ([facility]) on TuesdayAugust 30 at 8:30am ([phone]). Eric Klein MD Resident Physician [facility] 08/24/2011 Patient seen and evaluated with attending physician, Dr. Funmilayo Osorio, [facility]. Faculty Staffing Note: Personally repeated jade elements of history and physical and agree with documentation by e resident on this progress note. Assisted Resident and conferred with patient in regards to diagnosis and management plan. Funmilayo Osorio MD Pan Devulcanizer Helper [facility] ang, Rach Waters MD - 08/24/2011 11:23 [...] clinic in next week. Call clinic for [phone] 4:56 PM Ophtho: Diamox 1000mg BID, f/u [...] she was told to come to "[facility] ED for eval by my neurosurgeon." [...] exam findings to suggest menengitis or other CIRCUIT BREAKER ASSEMBLER infection. No history of immune compromise.CVT was [...] been in in hospital with mother in [place]. Pt reports her local hospital in [facility] is not equipped to handle current. complaint Pt is aox3, neg stroke scale, strong it consulting manager Vidhi Tong RN - 08/24/2011 9:30 AM PDTPt c/o lumbar shunt malfunction. Has had in place for 4 years w/o problem. Tuesday fever to 102. Now low back pain radiating around to front. Drove from [facility] to see Neuro as recommended by PCP. [...]
--- OUTSIDE RECORDS SUMMARY | ~2020-07-30 | XMS | Encounter Summary ---
Demographics + + + | Address | [address] | | | [place] [address] | + + + | Home Phone [...] + + | Author | [facility] | + + + | Organization | [facility] | + [...] Team Providers + +------+ + | Care Customs Appraiser Name | Role | Phone | [...] Report | | 2006 | | Center [place] [address] [address] | | | | | Transcribed | [address] [facility] | | | | | | for Health and | | | | | | Healing, Building [address] | | | | | | [place], [place] | | | | | | [address] | | | | | | [phone] | | | +--------+ + + + [...] 02/07/2007 12:00 AM PDTAssociated Order(s): OPERATION RECORD [id number] [facility] [id number] Date: 02/07/2007 Attending Surgeon: Hay Hughes M.D. Tire Building Supervisor(s): Pascual Bermudez M.D. 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 The assistant professor of radiology retracted the orbital fat bag with a [...] in good condition. Hay Hughes M.D. / [id number] / [id number] / [id number] / [id number] cc: Brad Currie M.D. [facility] Brenden Benavides M.D. [facility] [address] [place] [address] Electronically signed by Hay Hughes 02-12-2007 05:13:05 [...] | 02/07/2007 12:00 AM PDT | | [id number] | | [id number] Waters [id number] | | | | Date: 02/07/2007 | | | | Attending Surgeon: Hay Hughes M.D. | | | | Tire Building Supervisor(s): Pascual Bermudez M.D. | | | | [...] | | septum. The assistant professor of radiology retracted the orbital fat bag with a [...] | | | JN / | | [id number] / [id number] / [id number] / [id number] | | | | | | | | cc: | | | | | | Brad Currie M.D. | | [facility] | | | | | | Brenden Benavides M.D. | | [facility] | | [address] | | [place] [address] | | | | | | Electronically signed by Hay Hughes 02-12-2007 05:13:05 PM | | | | | + + documented in this encounter Visit Diagnoses Not on filedocumented in this encounter"
--- OUTSIDE RECORDS SUMMARY | ~2020-07-30 | XMS | Encounter Summary ---
Demographics + + + | Address | [address] | | | [place] [address] | + + + | Home Phone [...] | Author | [facility] | + + + | Organization | [facility] [employer] [facility] | + [...] Team Providers + +------+ + | Care Living Coach Name | Role | Phone | [...] | | | | | [place] for | [address] | | | | | Health and Healing, | [place], [place] | | | | | | [address] | | | | | Floor [place], [place] | | | | | | [address] | | | | | | [phone] | | | +--------+ + + + [...]
--- OUTSIDE RECORDS SUMMARY | ~2020-07-30 | XMS | Encounter Summary ---
Demographics + + + | Address | [address] | | | [place] [address] | + + + | Home Phone [...] | Author | [facility] | + + + | Organization | [facility] [employer] [facility] | + [...] Providers + +------+ + | Care Lead Qa Analyst Name | Role | Phone | [...] | [address] | | | | [address] [place] for | [place], [place] | | | | | Health and Healing, | [address] | | | | | [facility] | [phone] | | | | | floor [place], [place] | | | | | | [address] | | | | | | [phone] | | | +--------+ + + + [...] 10:27 AM PDTRouting message to re sidedanish supervisor fabrication, Dr Muna Holland elephone Encounter - Monica Pizarro LPN - 03/09/2013 10:22 AM PDTReceived vm from community health nurse with [facility] notifying Dr. Pedroza s team that they are transporting her this morning after 1030 to [facility] ED. [phone] is Alexsander gamble, the nurse's phone number. [...] Hopkins PA -C - 03/06/2013 10:21 AM [id number] with a long h/o pseudotumor treated with [...] improve, we will contact the insurance co [facility] again see whether we will get approval for stent placement" Has been followed by Dr. Osorio/Dr. Mcgrath at [facility]. She has had several no-show appts with Dr. Mcgrath in late 2011. Dr. Osorio's last documented phone encounter 09/2011: "I received a call from the patient today. She missed her scheduled appointment here at [facility]. The patient is currently unable to travel to [place] since she is caring for her mother who is ill. The patient has an appt scheduled with an oxide furnace tender in her local area nex t week. [...] her to see the financial counselor at [facility]." Can see pt in clinic for eval [...] come into see Dr. Pedroza's team at [facility]. documented in this encounter Plan of Treatment Not on filedocumented as of this encounter Visit Diagnoses Not on filedocumented in this encounter
--- OUTSIDE RECORDS SUMMARY | ~2020-07-30 | XMS | Encounter Summary ---
Demographics + + + | Address | [address] | | | [place] [address] | + + + | Home Phone [...] + | Author | [facility] [place] [place] | + + + | Organization | [facility] [employer] [facility] [...] Team Providers + +------+ + | Care Carpenter Foreman Name | Role | Phone | + +------+ + | Dennis Maddox | PCP | | + +------+ + Reason for Visit + +--------+ + | Reason | Onset | Comments | | | Date | | + +--------+ + | Headache | 01/31/ | | | | 2014 | | + +--------+ + Encounter Details +--------+ + + + + | Date | Type | Department | Care Team | Description | +--------+ + + + + | 03/06/ | Telephone | [facility] | Irina Eulalio Debby, | Headache | | 2015 | | [place] | MD [address] | | | | | Neuro-Ophthalmology | [facility] [place] | | | | | at [facility] [address] | [address] | | | | | Ave [facility] | [phone] | | | | | Heatlh and Healing, | | | | | | [facility] | | | | | | Floor [place], [place] | | | | | | [address] | | | | | | [phone] | | | +--------+ + + + [...] this encounter Miscellaneous Notes Telephone Encounter - Eulalio Arevalo MD - 01/31/2015 1:43 PM PSTMessage copied by EULALIO AREVALO MD on TueJan 31, 2015 1:43 PM ------ Message from: MAYELIN LIANG Created: TueJan 15, 2015 3:24 PM Regarding: headaches Dr. Arevalo" Pt not seen here since 2006 for pseudotumor cerebri. Called complaining of severe head aches. Thinks the shunt has shifted. She has no diamox. I told her to go the the ER to be ch ecked out. She was reluctant, but I explained there was nothing I could do for her at this t corinna, and it would be the best thing for her to do. She agreed. She lives in [place] and wi ll head to ER close to her. I told her I would speak with you tomorrow and call her back. I know she needs an appointment with you, but she has no showed a couple of times. Uns ure if she is getting care elsewhere. Mayelin ------ documented in this encounter Plan of Treatment Not on filedocumented as of this encounter Visit Diagnoses Not on filedocumented in this encounter
--- OUTSIDE RECORDS SUMMARY | ~2020-07-30 | XMS | Encounter Summary ---
Demographics + + + | Address | [address] | | | [place] [address] | + + + | Home Phone | | + + + | Preferred Language | Unknown | + + + | Marital Status | | + + + | Church Affiliation | Unknown | + + + | Race | or | + + + | Ethnic Group | Not or | + + + Author + + + | Author | [facility] | | | and [place] | + + + | Organization | [facility] | | [...] Providers + +------+ + | Care Radio Frequency Technician Name | Role | Phone | + +------+ + PCP | Unavailable | + +------+ + Encounter Details +--------+ + + + + | Date | Type | Department | Care Team | Description | +--------+ + + + + | 04/20/ | Hospital | [facility] | | | | 1995 | Encounter | MED CTR EMERGENCY | | | | | | CENTER [address] | | | | | | [place] | | | | | | [address] | | | | | | [phone] | | | +--------+ + + + [...]
--- OUTSIDE RECORDS SUMMARY | ~2020-07-30 | XMS | Encounter Summary ---
Demographics + + + | Address | [address] | | | [place] [address] | [...] Author + + + | Author | [facility] | + + + | Organization | [facility] [employer] [facility] | + [...] Providers + +------+ + | Care Supervisor Aluminum Boat Assembly Name | Role | Phone | [...] | | | | | | | [facility] | | | | | | | Hospital | | | | | | | [place], [place] | | | | | | | [address] | | | | | | | Phone: | | | | | | | [phone] | | | | | | | Fax: | | | | | | | [phone] | +--------+--------+ + + + + Encounter Details +--------+ + + + + | Date | Type | Department | Care Team | Description | +--------+ + + + + | 05/07/ | Hospital | [facility] [address] | [place], | | | 2007 | Encounter | [address] | MD [place] | | | | | [facility] [facility] | MD Holden,PhD | | | | | [place] | | | | | | [address] | | | | | | [phone] | | | +--------+ + + + [...] patient verbalized understanding. documented in this encounter Procedure Notes Other, [facility] - 05/07/2008 3:15 PM PDTAssociated Order(s): RADIOLOGY Other, [facility] - 3:15 PM PDTAssociated Order(s): ORDERS OTHER Other, [facility] - 05/07/2008 3:15 PM PDT documented in this encounter Miscellaneous Notes Scan - Other, [facility] - 05/07/2008 3:15 PM PDT Scan - Other, [facility] - 05/07/2008 3:15 P M PDT documented in this encounter Plan of [...] | + + | Jonnie Crum - 05/07/2008 3:15 PM PDT | + [...] Dennis, | | | | | | M.D.Temperature Control Inspector surgeon: . | | | | | [...] | | | | | | vein with6-Uzbek Envoy | | | | | | [...] artery. | | | | | | [id number] Raffi | | | | | | catheter [...] | | | | | with a 6-Uzbek Envoy | | | | | | [...] | | + +---------+ + + | [facility] DEPARTMENT OF | | | [...] injection 1 dose, Starting Tue | | 07 09:45 | | | | | 05/07/08 at [...]
--- OUTSIDE RECORDS SUMMARY | ~2020-07-30 | XMS | Encounter Summary ---
Demographics + + + | Address | [address] | | | [place] [address] | + + + | Home Phone [...] | Organization | [facility] [...] Providers + +------+ + | Care Social Professionals Name | Role | Phone | + +------+ + PCP | Unavailable | + +------+ + Encounter Details +--------+ + + + + | Date | Type | Department | Care Team | Description | +--------+ + + + + | 07/30/ | Hospital | [facility] | | | | 2008 - | Encounter | MED CTR MED ONC | | | | | | [address] | | | | 08/02/ | | [place] [address] | | | | 2008 | | [phone] | | | +--------+ + + + [...]
--- OUTSIDE RECORDS SUMMARY | ~2020-07-30 | XMS | Encounter Summary ---
Demographics + + + | Address | [address] | | | [place] [address] | + + + | Home Phone [...] + + + | Author | [facility] | | | and [place] | + + + | Organization | [facility] | | [...] Team Providers + +------+ + | Care Legislative Aide Name | Role | Phone | + +------+ + PCP | Unavailable | + +------+ + Encounter Details +--------+ + + + + | Date | Type | Department | Care Team | Description | +--------+ + + + + | 07/24/ | Hospital | [facility] | | | | 1990 | Encounter | MED CTR EMERGENCY | | | | | | CENTER [address] | | | | | | [place] | | | | | | [address] | | | | | | [phone] | | | +--------+ + + + [...]
--- OUTSIDE RECORDS SUMMARY | ~2020-07-30 | XMS | Clinical Summary ---
Demographics + + + | Address | [address] | | | [place] [address] | + + + | Home Phone [...] | Organization | [facility] [...] +---------+--------+ | [place]ICA[place] | MEDICA | [id number] | 11/09/ | [phone] | | Medica | | | ID [place] | | 2018-P | 2 | | id | | | PLUS | | resent | | | | + +--------+ +--------+ +---------+--------+ | [facility] | IHS | [id number] | 11/08/ | | | Indemn | [...] [address] | | | al/Fam | | 1974 | [id number] | [place] [address] | | | rene | | | 5 (Home) | | + +--------+ +--------+ + + | Annabella Au S | Person | Self | [birth year] | [address] | | | al/Fam | | 1974 | [id number] | [place] [address] | | | rene | | | 5 (Home) | | + +--------+ +--------+ + + Advance Directives + + + + + | Type | Date Recorded | Patient | Explanation | | | | Glass Cutter | | + + + + + | Power of | | | | | Dispatch Machine Runner | | | | + + + + + | Advance | | | | | Directive | | | | + + + + +
--- OUTSIDE RECORDS SUMMARY | ~2020-07-30 | XMS | Encounter Summary ---
Demographics + + + | Address | [address] | | | [place] [address] | + + + | Home Phone [...] + | Author | [facility] [employer] [facility] | + + + | Organization | [facility] [employer] [facility] | + [...] Providers + +------+ + | Care Pattern Puncher Name | Role | Phone | + [...] | | | | | Ave Center [facility] | [place], [place] | | | | | Health and Healing, | [address] | | | | | [facility] | [phone] | | | | | floor [place], [place] | | | | | | [address] | | | | | | [phone] | | | +--------+ + + + [...] lying down. She is currently driving to [facility]. She thinks she might be retaining water somewhere. I indicated that I could not evaluate her over the phone and I a lso couldn't guarantee a transfer to [facility]. She verbalized understanding. Electronically sig brad by Eladio Pang MD at 03/11/2013 8:00 AM PDTdocumented in this encounter Plan of Treatment Not on filedocumented as of this encounter Visit Diagnoses Not on filedocumented in this encounter"
--- OUTSIDE RECORDS SUMMARY | ~2020-07-30 | XMS | Encounter Summary ---
Demographics + + + | Address | [address] | | | [place] [address] | + + + | Home Phone [...] Providers + +------+ + | Care Mold Cleaner Name | Role | Phone | + +------+ + PCP | Unavailable | + +------+ + Encounter Details +--------+ + + + + | Date | Type | Department | Care Team | Description | +--------+ + + + + | 05/15/ | Hospital | [facility] | | | | 1991 | Encounter | MED CTR XRAY [address] | | | | | | [address] | | | | | | [place] [address] | | | | | | [phone] | | | +--------+ + + + [...]
--- OUTSIDE RECORDS SUMMARY | ~2020-07-30 | XMS | Encounter Summary ---
Demographics + + + | Address | [address] | | | [place] [address] | + + + | Home Phone [...] + | Author | [facility] | + + + | Organization | [facility] | + + [...] Providers + +------+ + | Care Wire Weaver Name | Role | Phone | + +------+ + | Brenden Benavides MD | PCP | | + +------+ + Encounter Details +--------+ + + + + | Date | Type | Department | Care Team | Description | +--------+ + + + + | 02/22/ | Telephone | [facility] | Brad Currie MD | | | 2006 | | [place] | | | | | | Neuro-Ophthalmology | | | | | | [address] [facility] | | | | | | Mailcode: PATTI | | | | | | [place] [address] | | | | | | [phone] | | | +--------+ + + + [...] infection at last visit. A tech from [employer] will be calling this patient. Sergio Alicia Neuro Ward Service Supervisor for MD Julieta Nielson MD Jacqueline Holodak wrote: Sergio, Please call patient - she says she has a green discharge coming form her eye & some pain. Thanks, Taryn documented in th is encounter Plan of Treatment Not on filedocumented as of this encounter Visit Diagnoses Not on filedocumented in this encounter"
--- OUTSIDE RECORDS SUMMARY | ~2020-07-30 | XMS | Encounter Summary ---
Demographics + + + | Address | [address] | | | [place] [address] | + + + | Home Phone [...] + | Author | [facility] [employer] [facility] | + + + | Organization | [facility] [employer] [facility] | + + + | Address | Unknown | + + + | Phone | Unavailable | + + + Support + + +---------+ + | Name | Relationship | Address | Phone | + + +---------+ + | Ruby Au | ECON | Unknown | | + + +---------+ + Care Team Providers + +------+ + | Care Rolls Baker Name | Role | Phone | [...] | | Ophthalmology | | Non-[facility] | [place], | | | | | | Epic Dept | Graciela Guardado MD | | | | | | | [address] | | | | | | | Ave | | | | | | | [place], [place] | | | | | | | [address] | | | | | | | Phone: | | | | | | | [phone] | | | | | | | Fax: | | | | | | | [phone] | +--------+--------+ + + + + Encounter Details +--------+---------+ + + + | Date | Type | Department | Care Team | Description | +--------+---------+ + + + | 03/26/ | Office | [facility] | Mo Hood | Pseudotumor cerebri | | 2012 | Visit | [place]/Ophthalmol Leif Amador MD | (Primary Dx); | | | | ogy at [facility] [address] | | Depression; Type II | | | | [address] [facility] for | | or unspecified type | | | | Health and Healing, | | diabetes mellitus | | | | Building | | without mention of | | | | Floor [place], [place] | | complication, not | | | | [address] | | stated as | | | | [phone] | | uncontrolled; PTSD | | | [...] HPI: 37 y.o. year old female from [place] : Patient presents with: IIH - Idiopathic [...] because they live 4 hours away in [facility]. Tobacco use: reports that she [...] Right Left Disc 1+ Optic disc edema, +STONEMASON HELPER 2+ Optic disc edema, RNFL whitening at the superonasal borde r of the disc. There is spontaneous pulsing of the entire disc head with heart beat. C/D Ratio 0.1 0.1 Macula Normal Normal Vessels Engorged. tortuous Engorged. tortuous Periphery Normal Normal Neuro/Psych Oriented x3: Yes Mood/Affect: Normal See [facility] Ophthalmology Exam Module for additional exam information [...] Dr. Lux. Mo Hood MD Resident Physician [facility] [place], PGY-2 [facility] Physician: Mo Hood MD, 03/26/2013 [...]
--- OUTSIDE RECORDS SUMMARY | ~2020-07-30 | XMS | Encounter Summary ---
Demographics + + + | Address | [address] | | | [place] [address] | + + + | Home Phone | | + + + | Preferred Language | Unknown | + + + | Marital Status | | + + + | Pentecostalism Affiliation | Unknown | + + + | Race | or | + + + | Ethnic Group | Not or | + + + Author + + + | Author | [facility] | | | and [place] | + + + | Organization | [facility] | [...] Team Providers + +------+ + | Care Ethnographer Name | Role | Phone | + +------+ + PCP | Unavailable | + +------+ + Encounter Details +--------+ + + + + | Date | Type | Department | Care Team | Description | +--------+ + + + + | 07/06/ | Hospital | [facility] | Mirna Lambert | | | 2007 | Encounter | MED CTR EMERGENCY | MD [address] | | | | | CENTER [address] | [facility], | | | | | [place], [place] | [place] [address] | | | | | [address] | [phone] | | | | | [phone] | | | +--------+ + + + [...]
--- OUTSIDE RECORDS SUMMARY | ~2020-07-30 | XMS | Encounter Summary ---
Demographics + + + | Address | [address] | | | [place] [address] | + + + | Home Phone [...] Providers + +------+ + | Care Signal Integrity Engineer Name | Role | Phone | + +------+ + PCP | Unavailable | + +------+ + Encounter Details +--------+ + + + + | Date | Type | Department | Care Team | Description | +--------+ + + + + | 11/04/ | Hospital | [facility] | Unknown, | | | 2005 | Encounter | MED CTR XRAY [address] | Practitioner, MD . | | | | | [address] | | | | | | [place] [address] | (Fax) | | | | | [phone] | | | +--------+ + + + [...]
--- OUTSIDE RECORDS SUMMARY | ~2020-07-30 | XMS | Encounter Summary ---
Demographics + + + | Address | [address] | | | [place] [address] | + + + | Home Phone [...] + | Author | [facility] [employer] [facility] | + + + | Organization | [facility] [facility] [...] Team Providers + +------+ + | Care Working Second Hand Name | Role | Phone | [...] | | [place] Mailcode:OP14B | Sandra Maloney [place], | | | | | [facility] | [place] [address] | | | | | [place], [place] | | | | | | [address] | | | | | | [phone] | | | +--------+ + + + [...] to be increasing. Her phone # is [phone]. documented in this encou nter Plan of Treatment Not on filedocumented as of this encounter Visit Diagnoses Not on filedocumented in this encounter"
--- OUTSIDE RECORDS SUMMARY | ~2020-07-30 | XMS | Encounter Summary ---
Demographics + + + | Address | [address] | | | [place] [address] | + + + | Home Phone [...] + | Author | [facility] [employer] [facility] | + + + | Organization | [facility] [facility] | + [...] Team Providers + +------+ + | Care Grain Blender Name | Role | Phone | + [...] | | | Ave Center for | [place], [place] | | | | | Health and Healing, | [address] | | | | | Building , | [phone] | | | | | floor [place], [place] | | | | | | [address] | | | | | | [phone] | | | +--------+ + + + [...] already. I encouraged her to return to [place] to be seen in our ED by the neurosurgeons transportation sales consultant. I explained that this was a n occasion that we are unable to treat on the phone. She will call for transportation and if this is not resolved will look into returning to [facility] on Tuesday. do cumented in this encounter Plan of Treatment Not on filedocumented as of this encounter Visit Diagnoses Not on filedocumented in this encounter"
--- OUTSIDE RECORDS SUMMARY | ~2020-07-30 | XMS | Encounter Summary ---
Demographics + + + | Address | [address] | | | [place] [address] | + + + | Home Phone [...] Providers + +------+ + | Care Infrastructure Technician Name | Role | Phone | + +------+ + PCP | Unavailable | + +------+ + Encounter Details +--------+ + + + + | Date | Type | Department | Care Team | Description | +--------+ + + + + | 04/21/ | Hospital | [facility] | | | | 1995 | Encounter | MED CTR EMERGENCY | | | | | | CENTER [address] | | | | | | [place] | | | | | | [address] | | | | | | [phone] | | | +--------+ + + + [...]
--- OUTSIDE RECORDS SUMMARY | ~2020-07-30 | XMS | Encounter Summary ---
Demographics + + + | Address | [address] | | | [place] [address] | + + + | Home Phone [...] + | Organization | [facility] | [...] Providers + +------+ + | Care Dry Folder Cloth Name | Role | Phone | + +------+ + PCP | Unavailable | + +------+ + Encounter Details +--------+ + + + + | Date | Type | Department | Care Team | Description | +--------+ + + + + | 09/03/ | Hospital | [facility] | | | | 1991 | Encounter | MED CTR WOMENS | | | | | | HEALTH [facility] [address] | | | | | | [place], | | | | | | [place] [address] | | | | | | [phone] | | | +--------+ + + + [...]
--- OUTSIDE RECORDS SUMMARY | ~2020-07-30 | XMS | Encounter Summary ---
Demographics + + + | Address | [address] | | | [place] [address] | + + + | Home Phone [...] + | Author | [facility] [employer] [facility] | + + + | Organization | [facility] [employer] [facility] [...] Team Providers + +------+ + | Care Radiotelegraphist Name | Role | Phone | + [...] Refill Request | | 2007 | | [facility] | [facility] | | | | | and Healing [address] | Neurosurgery [address] | | | | | [address] [facility] | [address] | | | | | Health and Healing, | [place], [place] | | | | | Building | [address] | | | | | Floor [place], [place] | | | | | | [address] | | | | | | [phone] | | | +--------+--------+ + + + [...]
--- OUTSIDE RECORDS SUMMARY | ~2020-07-30 | XMS | Encounter Summary ---
Demographics + + + | Address | [address] | | | [place] [address] | + + + | Home Phone [...] + + | Author | [facility] [employer] [facility] | + + + | Organization | [facility] [employer] [facility] | + + + | Address | Unknown | + + + | Phone | Unavailable | + + + Support + + +---------+ + | Name | Relationship | Address | Phone | + + +---------+ + | Ruby Au | ECON | Unknown | | + + +---------+ + Care Team Providers + +------+ + | Care Hide Inspector Name | Role | Phone | [...] Erroneous Encounter | | 2007 | | [facility] | [facility] | - Disregard | | | | and Healing [address] | Neurosurgery [address] | | | | | [address] [facility] | [address] | | | | | Health and Healing, | [place], [place] | | | | | [facility] | [address] | | | | | Floor [place], [place] | | | | | | [address] | | | | | | [phone] | | | +--------+--------+ + + + [...] Kiki Rosen 08/15/2008 10:45 AM PDTCalled in [place] 5 [address]80 with on refill to [phone] Tdocumented in this encounter Plan of Treatment Not on filedocumented as of this encounter Visit Diagnoses Not on filedocumented in this encounter"
--- OUTSIDE RECORDS SUMMARY | ~2020-07-30 | XMS | Encounter Summary ---
Demographics + + + | Address | [address] | | | [place] [address] | + + + | Home Phone [...] + | Author | [facility] [employer] [facility] | + + + | Organization | [facility] [employer] [facility] [...] Providers + +------+ + | Care School Photographs Detailer Name | Role | Phone | + [...] | Ave Center [facility] | [place], [place] | | | | | Health and Healing, | [address] | | | | | Building [address] | [phone] | | | | | floor [place], [place] | | | | | | [address] | | | | | | [phone] | | | +--------+---------+ + + + [...]
--- OUTSIDE RECORDS SUMMARY | ~2020-07-30 | XMS | Encounter Summary ---
Demographics + + + | Address | [address] | | | [place] [address] | + + + | Home Phone [...] [facility] | + + + | Organization | [facility] [employer] [facility] | + [...] Team Providers + +------+ + | Care University Registrar Name | Role | Phone | [...] ) | | | | Physician's | [place], [place] | | | | | [place], [facility] floor | [address] | | | | | [place], [place] | [phone] | | | | | [address] | | | | | | [phone] | | | +--------+ + + + [...] AM PDTPt states that [facility]. She is requesting that Dr. Pedroza write her a prescription for a hosptial bed so she can have it after her surgery on Tuesday05/07/08. If the prescription is approved, please fax to attn: Jessenia [phone]. Please call pt back on her cell phone if approved or denied. She is hoping to get the bed r equested stanislav since surgery is on Tuesday. 08 10:35 AM PDTdocumented in this encounter Plan of Treatment Not on filedocumented as of this encounter Visit Diagnoses Not on filedocumented in this encounter"
--- OUTSIDE RECORDS SUMMARY | ~2020-07-30 | XMS | Encounter Summary ---
Demographics + + + | Address | [address] | | | [place] [address] | + + + | Home Phone [...] Providers + +------+ + | Care Service Electrician Name | Role | Phone | + +------+ + PCP | Unavailable | + +------+ + Encounter Details +--------+ + + + + | Date | Type | Department | Care Team | Description | +--------+ + + + + | 10/02/ | Hospital | [facility] | | | | 1991 | Encounter | MED CTR WOMENS | | | | | | HEALTH [facility] [address] | | | | | | [place], | | | | | | [place] [address] | | | | | | [phone] | | | +--------+ + + + [...]
--- OUTSIDE RECORDS SUMMARY | ~2020-07-30 | XMS | Encounter Summary ---
Demographics + + + | Address | [address] | | | [place] [address] | + + + | Home Phone [...] + | Author | [facility] [employer] [facility] | + + + | Organization | [facility] [facility] [...] Team Providers + +------+ + | Care Refrigerator Repairman Name | Role | Phone | [...] Letter Encounter | | 2009 | | [facility] | [address] | | | | | and Healing [address] | [place], [place] | | | | | [address] [facility] | [address] | | | | | Health and Healing, | [phone] | | | | | | | | | | | Floor [place], [place] | | | | | | [address] | | | | | | [phone] | | | +--------+ + + + [...] 01/27/2009 1:25 PM PSTInformed patient to fax [employer] l records release to the medical records department. elephone Encounter - Citlaly Aguilar - 01/22/2009 2:08 PM PSTPatient called to request documentation, on her care with Dr. Pedroza, so she may give this informati on to her assistant county attorney. Patient indicated that she also needs documentation stating when her la st surgery was and the medications that were prescribed to her for her post-operative recove ry and pain management. Patient requested that this information be sent to Anoop See, [facility] [address] [place] [address]. Please call patient to discuss. documented in this encounter Plan of Treatment Not on filedocumented as of this encounter Visit Diagnoses Not on filedocumented in this encounter"
--- OUTSIDE RECORDS SUMMARY | ~2020-07-30 | XMS | Encounter Summary ---
Demographics + + + | Address | [address] | | | [place] [address] | + + + | Home Phone [...] | Author | [facility] | + + + | Organization | [facility] [employer] [facility] [...] Team Providers + +------+ + | Care Administration Clerk Name | Role | Phone | [...] Request (Pt | | 2006 | | [employer] | DANIELITO Hammer | requests more pain | | | | Oculoplastics at | [place], [place] | medication) | | | | [address] | [address] | | | | | [address] | [phone] | | | | | [facility] | | | | | | [facility], [address] [place] [address] | | | | | | [place] [address] | | | | | | [phone] | | | +--------+--------+ + + + [...]
--- OUTSIDE RECORDS SUMMARY | ~2020-07-30 | XMS | Encounter Summary ---
Demographics + + + | Address | [address] | | | [place] [address] | + + + | Home Phone [...] Team Providers + +------+ + | Care Rest Room Matron Name | Role | Phone | + +------+ + PCP | Unavailable | + +------+ + Encounter Details +--------+ + + + + | Date | Type | Department | Care Team | Description | +--------+ + + + + | 04/18/ | Hospital | [facility] | | | | 1991 | Encounter | MED CTR EMERGENCY | | | | | | CENTER [address] | | | | | | [place] | | | | | | [address] | | | | | | [phone] | | | +--------+ + + + [...]
--- OUTSIDE RECORDS SUMMARY | ~2020-07-30 | XMS | Encounter Summary ---
Demographics + + + | Address | [address] | | | [place] [address] | + + + | Home Phone [...] + | Author | [facility] | + + + | Organization | [facility] [employer] [facility] [...] Team Providers + +------+ + | Care Orthodontist Vice President Name | Role | Phone [...] | | | Health and Healing, | [address] | | | | | [facility] | [phone] | | | | | floor [place], [place] | | | | | | [address] | | | | | | [phone] | | | +--------+ + + + [...] for evaluation. She can be [facility] at [facility] at [phone]. docum ented in this encounter Plan of Treatment Not on filedocumented as of this encounter Visit Diagnoses Not on filedocumented in this encounter"
--- OUTSIDE RECORDS SUMMARY | ~2020-07-30 | XMS | Encounter Summary ---
Demographics + + + | Address | [address] | | | [place] [address] | + + + | Home Phone [...] + +------+ + | Care X Ray Electronics Wiring Technician Name | Role | Phone | + +------+ + PCP | Unavailable | + +------+ + Encounter Details +--------+ + + + + | Date | Type | Department | Care Team | Description | +--------+ + + + + | 01/27/ | Hospital | [facility] | Marine [place] | | | 2011 - | Encounter | MED CTR EMERGENCY | DO Gaurang Drake | | | | | CENTER [address] | [place], [place] | | | 01/28/ | | [place], [place] | [address] | | | 2011 | | [address] | | | | | | [phone] | | | +--------+ + + + [...] her discharge instructions with referral to a games dealer for the rash, as well as a prescription for tramadol, including a home pack of it, and some Zofran. She walked out before evaluation was complete . Therefore, please add to the discharge diagnosi s, left before evaluation complete. DICTATED BY: Vern Carlin M.D. Emergency Medicine JOB #: [id number] EXT JOB #:[id number] <Electronicall y Signed by Vern Carlin MD> 02/07/12 0734 Vern Carlin MD - 01/28/2012 10:55 PM PSTDATE: 01/28/2012 CHIEF COMPLAINT: Headache and rash. HISTORY OF PRESENT ILLNESS: Annabella is a 36-year-old female, states she has had what sounds like a michelle tricular or a CHIPPER FEEDER shunt placed for hydrocephalus several years ago. [...] want to go to the ER in [place], as she has had bad experience with [...] Vern Carlin M.D. Emergency Medicine JOB #: [id number] EXT JOB #:[id number] <Electronicall y Signed by Vern Carlin MD> [...] At | + + + | [facility] Diagnostic Imaging Department | [facility] | | [address] [facility] | [facility] | | UNENHANCED HEAD CT, [...] COMMUNICATED TO THE ER STAFF BY THE [facility] RADIOLOG IST ON | | | 01/29/2012 AT 0003 HOURS. Dictated Date/Time: 01/29/2012 09:41 | | | Transcribed Date/Time: 01/29/2012 09:47 Patient Care Coordinator: | | | <Electronically Signed by Ivan Smalls MD> 01/29/12 1606 | | + + + + + | Procedure Note | + + | Neal, Rad Conversion - 01/04/2014 4:51 PM [facility] | | Diagnostic Imaging Department [address] [place] [address] | | UNENHANCED HEAD CT, 01/28/2012, 2342 [...] THE ER STAFF BY | | [facility] RADIOLOGIST ON 01/29/2012 AT 0003 HOURS. Dictated [...] 09:41 | |Transcribed Date/Time: 01/29/2012 09:47 | |Patient Care Coordinator: | |<Electronically Signed by Ivan Smalls MD> [...]
--- OUTSIDE RECORDS SUMMARY | ~2020-07-30 | XMS | Encounter Summary ---
Demographics + + + | Address | [address] | | | [place] [address] | + + + | Home Phone [...] Team Providers + +------+ + | Care Big Data Hadoop Developer Name | Role | Phone | + +------+ + PCP | Unavailable | + +------+ + Encounter Details +--------+ + + + + | Date | Type | Department | Care Team | Description | +--------+ + + + + | 10/18/ | Hospital | [facility] | | | | 1991 | Encounter | MED CTR WOMENS | | | | | | HEALTH [facility] [address] | | | | | | [place], | | | | | | [place] [address] | | | | | | [phone] | | | +--------+ + + + [...]
--- OUTSIDE RECORDS SUMMARY | ~2020-07-30 | XMS | Encounter Summary ---
Demographics + + + | Address | [address] | | | [place] [address] | + + + | Home Phone [...] + | Author | [facility] | + + + | Organization | [facility] [employer] [facility] | + + [...] Providers + +------+ + | Care Carpentry Teacher Name | Role | Phone | [...] Refill Request | | 2012 | | [place]/Ophthalmol | MD Perry | | | | | leon at [facility] [address] | | | | | | [address] [facility] | | | | | | Health and Healing, | | | | | | Building | | | | | | Floor [place], [place] | | | | | | [address] | | | | | | [phone] | | | +--------+--------+ + + + [...]
--- OUTSIDE RECORDS SUMMARY | ~2020-07-30 | XMS | Encounter Summary ---
Demographics + + + | Address | [address] | | | [place] [address] | + + + | Home Phone [...] Organization | [facility] [...] Team Providers + +------+ + | Care Pc Maintenance Technician Name | Role | Phone [...] | | | CENTER [address] | [facility] | | | | | [address] [place] | [place] [address] | | | | | [address] | [phone] | | | | | [phone] | | | +--------+ + + + [...]
--- OUTSIDE RECORDS SUMMARY | ~2020-07-30 | XMS | Encounter Summary ---
Demographics + + + | Address | [address] | | | [place] [address] | + + + | Home Phone [...] + + | Author | [facility] | + + + | Organization | [facility] [employer] [facility] | [...] Providers + +------+ + | Care Ware Dresser Name | Role | Phone | + [...] Cerebri; | | 2006 | Visit | [place]/Ophthalmol | | Papilledema | | | | ogy at [facility] [address] | | Associated with | | | | [address] [facility] for | | Increased | | | | Health and Healing, | | Intracranial | | | | Building | | Pressure; Transient | | | | Floor [place], [place] | | Visual Loss | | | | [address] | | | | | | [phone] | | | +--------+---------+ + + + [...] HPI: 31 y.o. year old female from [place] : Patient presents with: Transient visual loss [...] seconds; these occur 2-3 x per w tonawanda. Hobbies: Tobacco use: reports that she has [...] continue follow-up for psuedotumor w [facility] neuro-ophth. Follow up at [facility] prn new symptoms or complaints. [...]
--- OUTSIDE RECORDS SUMMARY | ~2020-07-30 | XMS | Encounter Summary ---
Demographics + + + | Address | [address] | | | [place] [address] | + + + | Home Phone [...] | Organization | [facility] [...] Team Providers + +------+ + | Care Bindery Worker Name | Role | Phone | + +------+ + PCP | Unavailable | + +------+ + Encounter Details +--------+ + + + + | Date | Type | Department | Care Team | Description | +--------+ + + + + | 07/12/ | Hospital | [facility] | Conversion | | | 2010 | Encounter | [facility] | Transaction, | | | | | EMERGENCY CENTER | Provider Unknown | | | | | [address] | [phone] | | | | | [place] | | | | | | [address] | | | | | | [phone] | | | +--------+ + + + [...]
--- OUTSIDE RECORDS SUMMARY | ~2020-07-30 | XMS | Encounter Summary ---
Demographics + + + | Address | [address] | | | [place] [address] | + + + | Home Phone [...] Team Providers + +------+ + | Care Abrasive Coating Machine Operator Name | Role | Phone | + +------+ + PCP | Unavailable | + +------+ + Encounter Details +--------+ + + + + | Date | Type | Department | Care Team | Description | +--------+ + + + + | 11/22/ | Hospital | [facility] | | | | 1995 | Encounter | MED CTR EMERGENCY | | | | | | CENTER [address] | | | | | | [place] | | | | | | [address] | | | | | | [phone] | | | +--------+ + + + [...]
--- OUTSIDE RECORDS SUMMARY | ~2020-07-30 | XMS | Encounter Summary ---
Demographics + + + | Address | [address] | | | [place] [address] | + + + | Home Phone [...] | Author | [facility] [employer] [facility] | + + + | Organization | [facility] [employer] [facility] | + [...] Team Providers + +------+ + | Care Locker Room Manager Name | Role | Phone | [...] | | | Ave Center for | [place], [place] | | | | | Health and Healing, | [address] | | | | | [facility] | [phone] | | | | | floor [place], [place] | | | | | | [address] | | | | | | [phone] | | | +--------+ + + + [...]
--- OUTSIDE RECORDS SUMMARY | ~2020-07-30 | XMS | Encounter Summary ---
Demographics + + + | Address | [address] | | | [place] [address] | + + + | Home Phone [...] + | Author | [facility] [employer] [facility] | + + + | Organization | [facility] [employer] [facility] [...] Team Providers + +------+ + | Care Ocular Care Aide Name | Role | Phone [...] Refill Request | | 2006 | | [place] | [facility] | | | | | Oculoplastics at | Rd [place], [place] | | | | | [facility] [address] | [address] | | | | | [address] | | | | | | Eye [place] | | | | | | [address] | | | | | | [place] [address] | | | | | | [phone] | | | +--------+ + + + [...] to be seen here or by an melt house drag operator in [place], but she says she does not have transportation. I will call in Vicodin #20, pt to call immediately if there is any worsening. Called in Vicodin #20 to [place] [facility] 07 8:32 AM PDTdocumented in this encounter Plan of Treatment Not on filedocumented as of this encounter Visit Diagnoses Not on filedocumented in this encounter"
--- OUTSIDE RECORDS SUMMARY | ~2020-07-30 | XMS | Encounter Summary ---
Demographics + + + | Address | [address] | | | [place] [address] | + + + | Home Phone [...] Providers + +------+ + | Care Computer Systems Hardware Analyst Name | Role | Phone | + +------+ + PCP | Unavailable | + +------+ + Encounter Details +--------+ + + + + | Date | Type | Department | Care Team | Description | +--------+ + + + + | 08/03/ | Hospital | [facility] | | | | 1990 | Encounter | MED CTR EMERGENCY | | | | | | CENTER [address] | | | | | | [place] | | | | | | [address] | | | | | | [phone] | | | +--------+ + + + [...]
--- OUTSIDE RECORDS SUMMARY | ~2020-07-30 | XMS | Encounter Summary ---
Demographics + + + | Address | [address] | | | [place] [address] | + + + | Home Phone [...] Organization | [facility] [...] Team Providers + +------+ + | Care Butting Saw Operator Name | Role | Phone | + +------+ + PCP | Unavailable | + +------+ + Encounter Details +--------+ + + + + | Date | Type | Department | Care Team | Description | +--------+ + + + + | 09/30/ | Hospital | [facility] | | | | 1991 | Encounter | MED CTR [facility] | | | | | | HEALTH [facility] [address] | | | | | | [place], | | | | | | [place] [address] | | | | | | [phone] | | | +--------+ + + + [...]
--- OUTSIDE RECORDS SUMMARY | ~2020-07-30 | XMS | Encounter Summary ---
Demographics + + + | Address | [address] | | | [place] [address] | + + + | Home Phone [...] Providers + +------+ + | Care Home Health Clinical Liaison Name | Role | Phone | + +------+ + PCP | Unavailable | + +------+ + Encounter Details +--------+ + + + + | Date | Type | Department | Care Team | Description | +--------+ + + + + | 05/28/ | Hospital | [facility] | | | | 1991 | Encounter | MED CTR EMERGENCY | | | | | | CENTER [address] | | | | | | [place] | | | | | | [address] | | | | | | [phone] | | | +--------+ + + + [...]
--- OUTSIDE RECORDS SUMMARY | ~2020-07-30 | XMS | Encounter Summary ---
Demographics + + + | Address | [address] | | | [place] [address] | + + + | Home Phone [...] + | Author | [facility] | + + + | Organization | [facility] [employer] [facility] [...] Providers + +------+ + | Care Patient Service Rep Name | Role | Phone | [...] [address] | | | | | | [address] | Ave | | | | | | [address] | [place], [place] | | | | | | [place], | [address] | | | | | | [place] [address] | Phone: | | | | | | Phone: | [phone] | | | | | | [phone] | Fax: | | | | | | Fax: | [phone] | | | | | | [phone] | | +--------+ + + + + [...] | | | Ave Center for | [place], [place] | | | | | Health and Healing, | [address] | | | | | | [phone] | | | | | floor [place], [place] | | | | | | [address] | | | | | | [phone] | | | +--------+---------+ + + + [...] soon. I spent more than 15 minutes [id number] with the patient of which greater than 50% was sp ent counseling the patient regarding the shunt removal, indications and venous sinus stent a ngioplasty. Since her shunt is brent effective now she will need narcotics for headache and he r PCP should manage that. CASIMIRO PAYTON MD NEUROSURGERY [address] Mailcode: [id number], 8th Floor [facility] [address] documented in this encou nter Miscellaneous Notes [...]
--- OUTSIDE RECORDS SUMMARY | ~2020-07-30 | XMS | Encounter Summary ---
Demographics + + + | Address | [address] | | | [place] [address] | + + + | Home Phone [...] Team Providers + +------+ + | Care Transportation Design Engineer Name | Role | Phone | + +------+ + PCP | Unavailable | + +------+ + Encounter Details +--------+ + + + + | Date | Type | Department | Care Team | Description | +--------+ + + + + | 08/01/ | Hospital | [facility] | | | | 1991 | Encounter | MED CTR WOMENS | | | | | | HEALTH [facility] [address] | | | | | | [place], | | | | | | [place] [address] | | | | | | [phone] | | | +--------+ + + + [...]
--- OUTSIDE RECORDS SUMMARY | ~2020-07-30 | XMS | Encounter Summary ---
Demographics + + + | Address | [address] | | | [place] [address] | + + + | Home Phone [...] Providers + +------+ + | Care Rehabilitation Team Lead Name | Role | Phone | [...] | | | | EMERGENCY CENTER | [place], [place] | | | | | [address] | [address] | | | | | [place], [place] | [phone] | | | | | [address] | | | | | | [phone] | | | +--------+ + + + [...] 03/03/132032 Date of Service: 03/03/132032 Status: Signed Tyre Finisher And Examiner: Jovanny Collado RN (Registered Nurse) Dr. Reyes @ BS Jovanny Collado RN 03/03/132032 onver ludwin Transaction, Provider Unknown - 03/03/2013 6:56 PM PDT ED Notes by Jovanny Collado RN at 03/03/131855 Author: Jovanny Collado RN Service: (none) Author Type: Registered Nurse Filed: 03/03/131855 Date of Service: 03/03/131855 Status: Signed Tyre Finisher And Examiner: Jovanny Collado RN (Registered Nurse) Dr. Reyes @ BS Jovanny Collado RN 03/03/131855 rtis Reyes DO - 03/03/2013 6:55 PM PDTFormatting of this note might be different from the or iginal. ED Provider Notes by Artis Reyes DO at 03/03/131854 Author: Artis Reyes DO Service: (none) Author Type: Physician Filed: 03/04/13 223 Date of Service: 03/03/131854 Status: Signed Tyre Finisher And Examiner: Artis Reyes DO (Physician) Department of Emergency Medicine 6:55 PM History [...] ncludes; cholecystectomy, appendectomy, and one . [facility] Past Medical History Diagnosis Date Diabetes [...] sore throat CV/Resp: Negative for chest pain, stmccauuz-qp-scwsoy, cough GI: Negative for diarrhea Positive for [...] plan. Records Reviewed Nursing notes. No previous [facility] ED visits available in [facility] for review. Laboratory Evaluation Results Procedure Component Value Ref Range Date/Time Comprehensive metabolic panel [[id number]] (Abnormal) Collected:03/03/131922 Order Status:Completed Updated:03/03/131953 Specimen Information:Blood [...] 65 U/L EGFR >60 >60 mL/min/1.73m2 Lipase [[id number]] Collected:03/03/131922 Order Status:Completed Updated:03/03/131953 Specimen Information:Blood LIPASE 177 73 - 393 U/L Urine test (LAB) [[id number]] Collected:03/03/131939 Order Status:Completed Updated:03/03/131950 Specimen Information:Urine Preg Test, Ur NEGATIVE POC clinitek 10 [[id number]] (Abnormal) Collected:03/03/131940 Order Status:Completed Updated:03/03/131943 Color, UA [...] WBC, UA NEGATIVE NEGATIVE CBC with differential [[id number]] Collected:03/03/131922 Order Status:Completed Updated:03/03/131935 Specimen Information:Blood WBC [...] Follow up With Details Comments Contact Info [facility] As needed [address] [facility] [address] [facility] If symptoms worsen [address] [facility] [address] Discharge Medications: New Prescriptions DICYCLOMINE (BENTYL) 20 [...]
--- OUTSIDE RECORDS SUMMARY | ~2020-07-30 | XMS | Encounter Summary ---
Demographics + + + | Address | [address] | | | [place] [address] | + + + | Home Phone [...] Providers + +------+ + | Care Inspector Rubber Stamp Die Name | Role | Phone | + +------+ + PCP | Unavailable | + +------+ + Encounter Details +--------+ + + + + | Date | Type | Department | Care Team | Description | +--------+ + + + + | 04/24/ | Hospital | [facility] | | | | 2005 | Encounter | MED CTR EMERGENCY | | | | | | CENTER [address] | | | | | | [place] | | | | | | [address] | | | | | | [phone] | | | +--------+ + + + [...]
--- OUTSIDE RECORDS SUMMARY | ~2020-07-30 | XMS | Encounter Summary ---
Demographics + + + | Address | [address] | | | [place] [address] | + + + | Home Phone [...] + | Author | [facility] [employer] [facility] | + + + | Organization | [facility] [employer] [facility] | + + + | Address | Unknown | + + + | Phone | Unavailable | + + + Support + + +---------+ + | Name | Relationship | Address | Phone | + + +---------+ + | Ruby Au | ECON | Unknown | | + + +---------+ + Care Team Providers + +------+ + | Care License Clerk Name | Role | Phone | [...] | | | | | [address] for | [address] | | | | | Health and Healing, | [place], [place] | | | | | | [address] | | | | | Floor [place], [place] | | | | | | [address] | | | | | | [phone] | | | +--------+ + + + [...] 06/04/2009 2:50 PM PDTSp[facility]. Having incisional [...]
--- OUTSIDE RECORDS SUMMARY | ~2020-07-30 | XMS | Encounter Summary ---
Demographics + + + | Address | [address] | | | [place] [address] | + + + | Home Phone | | + + + | Preferred Language | Unknown | + + + | Marital Status | | + + + | Christian Affiliation | NON | + + + | Race | or | + + + | Ethnic Group | Not or | + + + Author + + + | Author | [facility] [employer] [facility] | + + + | Organization | [facility] [employer] [facility] | + [...] Providers + +------+ + | Care Waste Paper Hammermill Operator Name | Role | Phone | [...] | | | | | Ave [facility] | [place], [place] | | | | | Health and Healing, | [address] | | | | | [facility] | [phone] | | | | | floor [place], [place] | | | | | | [address] | | | | | | [phone] | | | +--------+ + + + [...]
--- OUTSIDE RECORDS SUMMARY | ~2020-07-30 | XMS | Encounter Summary ---
Demographics + + + | Address | [address] | | | [place] [address] | + + + | Home Phone [...] + +------+ + | Care Senior Technical Trainer Name | Role | Phone | + +------+ + PCP | Unavailable | + +------+ + Encounter Details +--------+ + + + + | Date | Type | Department | Care Team | Description | +--------+ + + + + | 05/31/ | Hospital | [facility] | | | | 1991 | Encounter | MED CTR [facility] | | | | | | HEALTH [facility] [address] | | | | | | [place], | | | | | | [place] [address] | | | | | | [phone] | | | +--------+ + + + [...]
--- OUTSIDE RECORDS SUMMARY | ~2020-07-30 | XMS | Encounter Summary ---
Demographics + + + | Address | [address] | | | [place] [address] | + + + | Home Phone [...] + | Organization | [facility] | [...] Team Providers + +------+ + | Care Picker Machine Operator Name | Role | Phone | + +------+ + PCP | Unavailable | + +------+ + Encounter Details +--------+ + + + + | Date | Type | Department | Care Team | Description | +--------+ + + + + | 05/25/ | Hospital | [facility] | | | | 1991 | Encounter | [facility] | | | | | | [facility] [address] | | | | | | [place], | | | | | | [place] [address] | | | | | | [phone] | | | +--------+ + + + [...]
--- OUTSIDE RECORDS SUMMARY | ~2020-07-30 | XMS | Encounter Summary ---
Demographics + + + | Address | [address] | | | [place] [address] | + + + | Home Phone [...] Team Providers + +------+ + | Care Light Truck Driver Name | Role | Phone | + +------+ + PCP | Unavailable | + +------+ + Encounter Details +--------+ + + + + | Date | Type | Department | Care Team | Description | +--------+ + + + + | 10/14/ | Hospital | [facility] | | | | 1991 | Encounter | [facility] | | | | | | [facility] [address] | | | | | | [place], | | | | | | [place] [address] | | | | | | [phone] | | | +--------+ + + + [...]
--- OUTSIDE RECORDS SUMMARY | ~2020-07-30 | XMS | Encounter Summary ---
Demographics + + + | Address | [address] | | | [place] [address] | + + + | Home Phone [...] + + | Author | [facility] [employer] [facility] | + + + | Organization | [facility] [employer] [facility] | + [...] Team Providers + +------+ + | Care Cork Insulator Name | Role | Phone | + +------+ + | Brenden Benavides MD | PCP | | + +------+ + Encounter Details +--------+ + + + + | Date | Type | Department | Care Team | Description | +--------+ + + + + | 02/22/ | Telephone | [facility] | Hay Hughes MD [address] | | | 2006 | | [place] | DANIELITO Hammer | | | | | Oculoplastics at | [place], [place] | | | | | [address] | [address] | | | | | [address] | [phone] | | | | | [facility] [place] | | | | | | [address] [place] [address] | | | | | | [place] [address] | | | | | | [phone] | | | +--------+ + + + [...] to run its course-she has no local residential director- 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
--- OUTSIDE RECORDS SUMMARY | ~2020-07-30 | XMS | Encounter Summary ---
Demographics + + + | Address | [address] | | | [place] [address] | + + + | Home Phone [...] + | Author | [facility] [employer] [facility] | + + + | Organization | [facility] [employer] [facility] | + [...] Providers + +------+ + | Care Tool Die Maker Name | Role | Phone | + +------+ + | Brenden Benavides MD | PCP | | + +------+ + Encounter Details +--------+ + + + + | Date | Type | Department | Care Team | Description | +--------+ + + + + | 02/23/ | Telephone | [facility] | Brad Currie MD | | | 2006 | | [place] | | | | | | Neuro-Ophthalmology | | | | | | [address] [facility] | | | | | | Mailcode: PATTI | | | | | | [place] [address] | | | | | | [phone] | | | +--------+ + + + [...] states 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 I spoke [...] mid sentence (second time). Omkar mccabe is ann-qrkhcsbqm-D will not attempt to call patient again. Sergio Alicia Neuro Road Boss for MD Julieta Nielson MD I documented in t his encounter Plan of Treatment Not on filedocumented as of this encounter Visit Diagnoses Not on filedocumented in this encounter
--- OUTSIDE RECORDS SUMMARY | ~2020-07-30 | XMS | Encounter Summary ---
Demographics + + + | Address | [address] | | | [place] [address] | + + + | Home Phone [...] | Author | [facility] [employer] [facility] | + + + | Organization | [facility] [employer] [facility] [...] Team Providers + +------+ + | Care Train Operator Name | Role | Phone | + +------+ + | Brenden Benavides MD | PCP | | + +------+ + Encounter Details +--------+ + + + + | Date | Type | Department | Care Team | Description | +--------+ + + + + | 01/05/ | Telephone | [facility] | Brad Currie MD | | | 2006 | | [place] | | | | | | Neuro-Ophthalmology | | | | | | [address] 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 I apologized and informed her that we [...]
--- OUTSIDE RECORDS SUMMARY | ~2020-07-30 | XMS | Encounter Summary ---
Demographics + + + | Address | [address] | | | [place] [address] | + + + | Home Phone [...] + | Author | [facility] [employer] [facility] | + + + | Organization | [facility] [employer] [facility] [...] Providers + +------+ + | Care Production Grader Name | Role | Phone | [...] Cerebri | | 2006 | Visit | [place] | | (Primary Dx) | | | | Neuro-Ophthalmology | | | | | | [address] [facility] | | | | | | Mailcode: CE | | | | | | [place] [address] | | | | | | [phone] | | | +--------+---------+ + + + [...] Referred by: CASIMIRO PAYTON MD [address] [place] [address] Symptoms: She has not been taking her [...] Brad Currie MD Neuro-Ophthalmology and Cerebrovascular Disease Mobile Home Set Up Person of Ophthalmology, Neurology, and Neurosurgery documented in [...]
--- OUTSIDE RECORDS SUMMARY | ~2020-07-30 | XMS | Encounter Summary ---
Demographics + + + | Address | [address] | | | [place] [address] | + + + | Home Phone [...] + | Author | [facility] [employer] [facility] | + + + | Organization | [facility] [employer] [facility] | + + [...] + +------+ + | Care Health Education Coordinator Name | Role | Phone | [...] | | [place] Mailcode:OP14B | Sandra Maloney [place], | | | | | [facility] | [place] [address] | | | | | [place], [place] | | | | | | [address] | | | | | | [phone] | | | +--------+ + + + [...] note in you r In Basket in [employer]. Annabella's # is [phone]. documented in this encounter Plan of Treatment Not on filedocumented as of this encounter Visit Diagnoses Not on filedocumented in this encounter"
--- OUTSIDE RECORDS SUMMARY | ~2020-07-30 | XMS | Encounter Summary ---
Demographics + + + | Address | [address] | | | [place] [address] | + + + | Home Phone [...] + + | Author | [facility] [employer] [facility] | + + + | Organization | [facility] [employer] [facility] | + + + | Address | Unknown | + + + | Phone | Unavailable | + + + Support + + +---------+ + | Name | Relationship | Address | Phone | + + +---------+ + | Ruby Au | ECON | Unknown | | + + +---------+ + Care Team Providers + +------+ + | Care Six Pack Loader Operator Name | Role | Phone | [...] Erroneous Encounter | | 2007 | | [place] [facility] | [place] [facility] | - Disregard | | | | and Healing [address] | Neurosurgery [address] | | | | | [address] [facility] | [address] | | | | | Health and Healing, | [place], [place] | | | | | [facility] | [address] | | | | | Floor [place], [place] | | | | | | [address] | | | | | | [phone] | | | +--------+ + + + [...] - Kiki Rosen - 08/14/2008 8:07 PM [id number] Nessa berman signed by Kiki Rosen at 08/14/2008 8:07 PM PDTdocumented in this encounter Plan of Treatment Not on filedocumented as of this encounter Visit Diagnoses Not on filedocumented in this encounter"
--- OUTSIDE RECORDS SUMMARY | ~2020-07-30 | XMS | Encounter Summary ---
Demographics + + + | Address | [address] | | | [place] [address] | + + + | Home Phone [...] Count Includes [facility] [employer] [facility] | + + + | Organization | Count Includes [facility] [employer] [facility] | [...] Team Providers + +------+ + | Care Aluminum Container Tester Name | Role | Phone | [...] about CAP[facility]) | | | | [facility] | [place], [place] | | | | | Health and Healing, | [address] | | | | | [facility] | [phone] | | | | | floor [place], [place] | | | | | | [address] | | | | | | [phone] | | | +--------+ + + + [...] She would also like a refill on [place]. Per Dr. Pedroza, pt's may only have [...]
--- OUTSIDE RECORDS SUMMARY | ~2020-07-30 | XMS | Encounter Summary ---
Demographics + + + | Address | [address] | | | [place] [address] | + + + | Home Phone [...] + | Author | [facility] | + + + | Organization | [facility] [employer] [facility] [...] Team Providers + +------+ + | Care Refinery Operator Helper Crude Unit Name | Role | Phone | + [...] | Prescription | | 2012 | | [place]/Ophthalmol | MD Perry | | | | | leon at [facility] [address] | | | | | | [address] [facility] | | | | | | Health and Healing, | | | | | | Building | | | | | | Floor [place], [place] | | | | | | [address] | | | | | | [phone] | | | +--------+ + + + [...] [address] [place] [phone] documented in this encounter Plan of Treatment Not on filedocumented as of this encounter Visit Diagnoses Not on filedocumented in this encounter"
--- OUTSIDE RECORDS SUMMARY | ~2020-07-30 | XMS | Encounter Summary ---
Demographics + + + | Address | [address] | | | [place] [address] | + + + | Home Phone [...] | Organization | [facility] [...] Providers + +------+ + | Care Service Crew Supervisor Name | Role | Phone [...] | | | | EMERGENCY CENTER | [place] [address] | | | | | [address] | [phone] | | | | | [place] | | | | | | [address] | | | | | | [phone] | | | +--------+ + + + [...] of this encounter ED Notes Maryellen Ramos, FLIGHT TEST SUPERVISOR - 10/03/2013 12:05 AM [facility] PATIENT NAME: ANNABELLA STEWART TREATMENT DATE: 07/17/2011 ADMISSION DATE: 07/17/2011 Age/Sex: 35Y / F : 1975 [id number] / [id number] CHIEF COMPLAINT: Anxiety. HISTORY OF PRESENT ILLNESS: [...] saturatio ns 95% on room air. INTEGUMENT: Mosses, warm and dry. No lesions, lacerations or abrasions. HEENT: Normocephalic, atraumatic. Pupils are equal, round, and reactive to light and accomm odation. EOMs are intact. MUSCULOSKELETAL: Moves all extremities well. HEART: Regular rate and rhythm. LUNGS: Clear. ABDOMEN: Benign. GENITOURINARY/RECTAL: Deferred. MINTHORN,S YLVIA S ADM:07/17/11 [id number] [facility] ER EMERGENCY DEPARTMENT RECORD [facility] JASPER Dorantes E-Sign: [facility] MD Lizeth Smith THIS REPORT IS CONFIDENTIAL AND NOT TO BE RELEASED WITHOUT PROPER AUTHORIZATION. [facility] NEUROLOGIC: Intact. PSYCHIATRIC: Calm and cooperative. [...] help with sleep at night. Followup with [facility]. Return if symptoms worsen. Discharged stable. JASPER Mc MD [facility] #[id number] cc: MD Maryellen Parker ARNP Electronically Signed 07/20/11 0136 Domingo Darby MD MINTHORN,S ANGLEA S ADM:07/17/11 [id number] [facility] ER EMERGENCY DEPARTMENT RECORD [facility] JASPER Dorantes E-Sign: [facility] MD Lizeth Smith THIS REPORT IS CONFIDENTIAL AND NOT TO BE RELEASED WITHOUT PROPER AUTHORIZATION.Electronica lly signed by JASPER Mc at 10/03/2013 10:53 AM PSTdocumented in this encounter Plan of Treatment Not on filedocumented as of this encounter Visit Diagnoses Not on filedocumented in this encounter"
--- OUTSIDE RECORDS SUMMARY | ~2020-07-30 | XMS | Encounter Summary ---
Demographics + + + | Address | [address] | | | [place] [address] | + + + | Home Phone [...] | Author | [facility] [employer] [facility] | + + + | Organization | [facility] [employer] [facility] | + [...] Team Providers + +------+ + | Care Nursing Aide Name | Role | Phone | [...] | | 2012 | anned | [address] [facility] | | | | | | [address] | | | | | | [place], [place] | | | | | | [address] | | | +--------+ + + + [...] documented as of this encounter Miscellaneous Notes Scan - Skyla, Faculty - 02/20/2013 4:35 PM PDTElectronically signed by Jonnie Crum at 4:35 PM PDTdocumented in this encounter Plan of Treatment Not on filedocumented as of this encounter Visit Diagnoses Not on filedocumented in this encounter"
--- OUTSIDE RECORDS SUMMARY | ~2020-07-30 | XMS | Encounter Summary ---
Demographics + + + | Address | [address] | | | [place] [address] | + + + | Home Phone [...] + | Author | [facility] [employer] [facility] | + + + | Organization | [facility] [employer] [facility] [...] Providers + +------+ + | Care Product Development Director Name | Role | Phone [...] 2008 | | DANIEL[address]O Flores | ,PhD [address] | | | | | [address] Mailcode:OP14B | [address] | | | | | [facility] | [place], [place] | | | | | [place], [place] | [address] | | | | | [address] | [phone] | | | | | [phone] | | | +--------+ + + + [...] resent to the ED either locally in [place] or here at [facility] to be evaluated for her headach es. documented in th is encounter Plan of Treatment Not on filedocumented as of this encounter Visit Diagnoses Not on filedocumented in this encounter"
--- OUTSIDE RECORDS SUMMARY | ~2020-07-30 | XMS | Encounter Summary ---
Demographics + + + | Address | [address] | | | [place] [address] | + + + | Home Phone [...] Providers + +------+ + | Care Machine Oiler Name | Role | Phone | + +------+ + PCP | Unavailable | + +------+ + Encounter Details +--------+ + + + + | Date | Type | Department | Care Team | Description | +--------+ + + + + | 06/10/ | Hospital | [facility] | | | | 1991 | Encounter | [facility] | | | | | | [facility] [address] | | | | | | [place], | | | | | | [place] [address] | | | | | | [phone] | | | +--------+ + + + [...]
--- OUTSIDE RECORDS SUMMARY | ~2020-07-30 | XMS | Encounter Summary ---
Demographics + + + | Address | [address] | | | [place] [address] | + + + | Home Phone [...] Team Providers + +------+ + | Care Shopping Centre Manager Name | Role | Phone | + +------+ + PCP | Unavailable | + +------+ + Encounter Details +--------+ + + + + | Date | Type | Department | Care Team | Description | +--------+ + + + + | 07/21/ | Hospital | [facility] | | | | 1990 | Encounter | MED CTR [facility] | | | | | | CENTER [address] | | | | | | [place] | | | | | | [address] | | | | | | [phone] | | | +--------+ + + + [...]
--- OUTSIDE RECORDS SUMMARY | ~2020-07-30 | XMS | Encounter Summary ---
Demographics + + + | Address | [address] | | | [place] [address] | + + + | Home Phone [...] Providers + +------+ + | Care Environmental Engineering Aide Name | Role | Phone | + +------+ + PCP | Unavailable | + +------+ + Encounter Details +--------+ + + + + | Date | Type | Department | Care Team | Description | +--------+ + + + + | 05/26/ | Hospital | [facility] | Alexa Bower DO | Infection of lumbar | | 2017 - | Encounter | [facility] [address] | [address] | spine ([facility]); Type [address] | | | [address] | [place] [address] | diabetes mellitus | | 05/27/ | | [place], [place] | [phone] | without | | 2017 | | [address] | | complication, | | | | [phone] | | unspecified long | | | | | | term insulin use | | | | | | status ([facility]); | | | | | | History of drug | | | | | | abuse ([facility]); BMI | | | | | | 40.0-44.9, adult | | | | | | ([facility]); Back pain, | | | | [...] 1542 Date of Service: 05/27/171842 Status: Signed Conductor Orchestra: Reynold Garcia MD (Physician) I was informed by nursing that pt decided to leave [place] on 05/27/2017. This has been document ed [...] 05/27/171849 Date of Service: 05/27/171842 Status: Signed Conductor Orchestra: Mesha Brown RN (Registered Nurse) Pt anxious, [...] Date of Service: 05/27/17 1303 Status: Signed Conductor Orchestra: Mesha Brown RN (Registered Nurse) Went to [...] Date of Service: 05/27/17 1045 Status: Signed Conductor Orchestra: Da Goode RN (Registered Nurse) 05/27/17 1042 [...] Oriented Prior functional status independant Power of Wire Charger No Anticipated Discharge Plan Post Acute Care Needs None at this time Resources Financial concerns No Transportation issues No ( will transport) Patient/Family concerns No Prescription Plan Yes Name of Pharmacy [facility] [place] [facility] phone number [phone] Previous home health equipment No Vascular access device No Ostomy/Drains/Appliances No Anticipated Disposition Facility Type Home Met with patient at bedside. Annabella is a 41 year old female with a history of anxiety/depre sssion, HTN, COPD, DM type 2, and IV drug use. She lives in [place] with her daughter 2 6, and 14 year old twins. Her is currently getting a new house ready for them to mov e into and is active in their lives. Annabella went to [facility] for pelvic pain and spotting but left AMA while waiting for MR I results because she couldn't smoke. The hospital called her and recommended her to go to [facility] based on the MRI results. Patient is independent in all ADL's. Because of the IV drug use, sending her home with an I V line is not recommended is she needs outpatient IV abx. Patient's PCP is: Virginia Reddy NP Patient's insurance:[facility] SOCIAL SERVICES MANAGER; [employer] Coverage concerns:no Medication coverage/concerns: no Community resources utilized / needed: TBD Assistance in transportation: not at this time Identification of any specific education / training: TBD Barriers to Discharge / Alternative housing needed: not at this time Anticipated DCP: Home DA GOODE RN Case Management [phone] Andre Lay MD - 05/27/2017 9:46 AM PDT Progress Notes by Andre Alonso MD-R1 at 05/27/17945 Author: Andre Alonso MD-R1 Service: Hospitalist Author Type: Resident-Y1 Filed: 05/27/171900 Date of Service: 05/27/17945 Status: Attested Conductor Orchestra: Andre Alonso MD-R1 (Resident-Y1) Cosigner: Reynold Garcia [...] to see pt proactively. 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 [facility]: Hospitalist Progress Note Hospital Day: LOS: 0 days Post-Op Day: * No surgery found * SUBJECTIVE Patient Summary: the patient is a 41-year-old female with significant past medical h istory of type II diabetes, hypertension, gastroesophageal reflux disease, depression, IV dr ug abuse who is a transfer from [facility] for further evaluation. Events Overnight: The patient [...] IV drug abuse who was transferred from [facility] in [place], [place] for further evaluation of suspicious lumbar [...] past 2-3 weeks. IUD was placed approximat mccormick 3 years ago. We are recommending that [...] 05/27/1736 Date of Service: 05/27/17633 Status: Signed Conductor Orchestra: Cathy Garcia RN (Registered Nurse) Contacted [facility]. Will fax over current microbiology GC test along with most current wound culture results. onver ludwin Transaction, Provider Unknown - 05/27/2017 5:15 AM PDT Progress Notes by Remy Trinidad RPH at 05/27/17 0515 Author: Remy Trinidad RPH Service: Pharmacy Author Type: Pharmacist Filed: 05/27/17514 Date of Service: 05/27/17514 Status: Signed Conductor Orchestra: Remy Trinidad RPH (Pharmacist) Note ccl 125.9ml/min meds reviewed Pharmacy will follow c 0515 docume nted in this encounter H&P Notes Tom Rae MD - 05/27/2017 2:41 AM PDT H&P by BERRTAM Boyer at 05/27/17240 Author: BERTRAM Boyer Service: Hospitalist Author Type: Resident-Y1 Filed: 05/27/17621 Date of Service: 05/27/17240 Status: Attested Addendum Conductor Orchestra: BERTRAM Boyer (Resident-Y1) Related Notes: Original Note by BERTRAM Boyer (Resident-Y1) filed at 05/27/17513 Cosigner: Alexa Bower DO at 06/21/17621 Attestation signed by Alexa Bower DO at 06/21/17621 (Updated) Chief complaint: Back Pain "I had an MRI and they told me there's fluid on my spine" Abdominal Pain Vaginal Bleeding Referral "the infectious disease doctor from [place] told me to come here to be admitted" Reason for admission: Possible paraspinal abscess Patient seen and evaluated independently. Patient denies saddle anesthesia. No suprapubic d istention or tenderness noted. Agree with above assessment, will recommend closely monitoring this patient for respiratory distress and use of narcotics for pain. [facility]: Hospitalist Admission History & Physical Date [...] spine. She was seen at [facility] in [place] yesterday where she was being evaluated for [...] improved with medications. Workup at [facility] revealed elevated CRP of 7.7, CBC and [...] of the right facet joint of L4-L5. [place] ED physician spoke with Dr. Triston alcantara ([place]) who recommended radiology guided sampling of fluid by IR as well as blood cultures . He called patient to advise her to come to [facility] for further evaluation. Patient uses IV he roin, last use was yesterday due to the pain. She states she is unsure if the needles she us es are clean. In the [facility] ED, patient found to be afebrile [...] MRI lumbar spine performed at [facility] in [place] showed a subcentimeter rim-enhanci ng collection adjacent [...] drug abuse Currently using IV heroin. Consulted correctional counselor/case manager for assistance with drug rehabilitation. Type [...] follow up urinalysis - G/C Aptima from [facility] pending, hospitalist to request results DVT [...] 06/06/17921 Date of Service: 05/27/17617 Status: Addendum Conductor Orchestra: Kate Rangel MD (Physician) Related Notes: Original Note by Kate Rangel MD (Physician) filed at 06/06/17920 [facility]: Infectious Disease Initial Consult Note Date of Admission: 05/26/2017 Reason for Consultation: Concern for spine infection in a patient with history of IV drug use Requesting Physician: Dr. Alexa Bower, Hospitalist History Obtained From: patient, chart review CHIEF COMPLAINT: Back pain; prior evaluation at [facility] in [place] with MRI concer ns for spine infection HISTORY OF PRESENT ILLNESS The patient is a 41 y.o. 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 She denies history of [...] the patient was seen at [facility] in [place] for low back pain which she linda cribed as severe and pelvic pain. She has been having vaginal spotting; she has an IUD and described having normal period the prior month. The vaginal spotting reportedly has stopped but she is interested in seeing a CASEWORKER. The low back pain is persistent, described [...] had been (informally) reviewed by Neurosurgery and [facility] Radiology does not think there is [...] normal menstruation in the past month. Suggest OB-CASEWORKER refe rral as an outpatient. Case had been discussed with ER physician at [facility] and with Dr. Garcia, her hospitalis t [...] 05/27/17313 Date of Service: 05/27/17313 Status: Signed Conductor Orchestra: Kenya Zavala RN (Registered Nurse) Dr Bower at pt BS Kenya Zavala RN 05/27/17313 Ed Nation MD - 05/27/2017 12:26 AM PDT ED Provider Notes by Ed Toney DO at 05/27/17 0026 Author: Ed Toney DO Service: Emergency Department Author Type: Physician Filed: 05/27/17 0443 Date of Service: 05/27/17 0026 Status: Signed Conductor Orchestra: Ed Toney DO (Physician) [facility] Medicine 12:26 AM 05/26/2017 [...] Bleeding Referral "the infectious disease doctor from [place] told me to come here to be [...] vaginal bleeding. Patient was seen in the [place] ED 3 days ago for vagina l bleeding, where she was found to have a "pocket of fluid in my spine." Patient became upse t, then left the facility AMA. She was then called today with her results, and advised to co me to [facility] ED for further evaluation/admission. The patient [...] and was advised to come to the [facility] ED for admission and treatment of possible abscess of spine. Dr. Rangel is aware of patient's case and is requesting three sets of blood cul tures and admission. Will order labs, and reevaluate. Will also obtain MRI report. 2:25 AM Reviewed patient's records which were sent from [facility] in [place]. 2:34 AM Discussed patient's case with Dr. [...] reviewed (Using the electronic record system of [facility], I car efully reviewed the records with regard to the past medical/surgical history, previous medic ations, and allergies). Nursing notes reviewed for chief complaint, medications, clinical presentation and vital si gns Laboratory Evaluation Results Procedure Component Value Ref Range Date/Time Drugs of Abuse Screen, UR Hospital and ED Only [[id number]] Order Status: Sent Specimen Information: Urine, Clean Catch Cardiac Panel [[id number]] (Abnormal) Collected: 05/27/17315 Order Status: Completed Updated: [...] Index UNABLE TO CALCULATE Sedimentation Rate (ESR) [[id number]] (Abnormal) Collected: 06/30/17 0316 Order Status: Completed Specimen Information: Blood Updated: 05/27/17357 ESR 23 (H) 0 - 20 mm/Hr Lactic acid [[id number]] Collected: 05/27/17316 Order Status: Completed Specimen Information: Blood Updated: 05/27/17348 LACTIC ACID 0.4 0.4 - 2.0 mmol/L C-Reactive Protein [[id number]] (Abnormal) Collected: 05/27/17315 Order Status: Completed Specimen Information: Blood Updated: 05/27/17347 CRP 1.7 (H) <0.5 mg/dL Blood culture, set 2 [[id number]] Collected: 05/27/17317 Order Status: Sent Specimen Information: Blood from Blood Updated: 05/27/17322 Blood Culture Set 1 [[id number]] Collected: 05/27/17314 Order Status: Sent Specimen Information: Blood from Blood Updated: 05/27/17320 Urinalysis (reflex to microscopic/reflex to culture) [[id number]] (Abnormal) Collected: 05/27/17199 Order Status: Completed Specimen Information: Urine, Clean Catch Updated: 05/27/17 02 23 COLOR UA RED CLARITY CLEAR Specific Murray, UA 1.005 1.002 - 1.030 LEUKOCYTE ESTERASE [...] Type 2 diabetes mellitus without complication, unspecified shelter insulin use status (H CC) History of [...] recognition system. The possibility of "sound alike" central office equipment engineer errors, addition and/or deletions may occur. If [...] Date of Service: 05/27/17 0004 Status: Signed Conductor Orchestra: Kenya Zavala RN (Registered Nurse) "3 Days [...] 05/27/17805 Date of Service: 05/27/17805 Status: Signed Conductor Orchestra: Mesha Brown RN (Registered Nurse) Problem: Pain [...] NEGATIVE Testing | | | performed at [facility];[address] [place] [address];[place] [address] | | + + + + +---------+ [...] | | | Fingerstick | performed at [facility];[address] | | LAB | | | | [address];[place] | | | | | | [address] | | | | + + + [...] | | | Fingerstick | performed at [facility];[address] | | LAB | | | | [address];[place] | | | | | | [address] | | | | + + + [...] - 1.030 | EXTERNAL | | | [place], | | | LAB | | | [...] | | l squamous | performed at [facility], [address] | | LAB | | | epithelia, | [address], | | | | | UA | [place] [address] | | | | + + + [...] | | | Patient | performed at [facility];[address] | | LAB | | | | [address];[place], [place] | | | | | | [address] | | | | + + + [...] | | | | | performed at [facility] | | | | | | [address];[place], [place] | | | | | | [address] | | | | + + + [...] | | | Basophils | performed at [facility], [address] | K/uL | LAB | | | | [address], | | | | | | [place] [address] | | | | + + + [...] EXTERNAL | | | | performed at [facility], [address] | | LAB | | | | [address], | | | | | | [place] [address] | | | | + + + [...] EXTERNAL | | | | performed at [facility], [address] | | LAB | | | | [address], | | | | | | [place] [address] | | | | + + + [...] | | | | | performed at [facility], [address] | | | | | | Teresa [address], | | | | | | [place] [address] | | | | + + + [...] | | | | | | at [facility], [address] | | | | | | [address], | | | | | | [place] [address] | | | | + + + [...] | | | Fingerstick | performed at [facility];[address] | | LAB | | | | [address];[place], [place] | | | | | | [address] | | | | + + + [...] | | | | | performed at [facility];[address] | | | | | | [facility];[place], [place] | | | | | | [address] | | | | + + + [...] EXTERNAL | | | | performed at [facility];[address] | mmol/L | LAB | | | | [address];[place] | | | | | | [address] | | | | + + + [...] at | | | | | | [facility];[address] [place] [address] | | | | | | Blvd;[place] [address] | | | | + + + [...] EXTERNAL | | | | performed at [facility] | | LAB | | | | [address];[place], [place] | | | | | | [address] | | | | + + + [...] EXTERNAL | | | | performed at [facility];[address] | | LAB | | | | [address];[place], [place] | | | | | | [address] | | | | + + + [...] | | | QUALITATIVE | performed at [facility] | | LAB | | | | Nereyda [facility];[place], [place] | | | | | | [address] | | | | + + + [...] - 1.030 | EXTERNAL | | | [place], | | | LAB | | | [...] | | | Cells | performed at [facility];[address] | | LAB | | | | [address];[place], [place] | | | | | | [address] | | | | + + + [...] 2 diabetes mellitus without complication, unspecified terminal supervisor insulin use | | status | + [...]
--- OUTSIDE RECORDS SUMMARY | ~2020-07-30 | XMS | Encounter Summary ---
Demographics + + + | Address | [address] | | | [place] [address] | + + + | Home Phone [...] [facility] [employer] [facility] | + + + | Organization | [facility] [employer] [facility] | + + [...] Providers + +------+ + | Care Watch Repair Person Name | Role | Phone | [...] | | | | | [facility] [place] for | [address] | | | | | Health and Healing, | [place], [place] | | | | | Building | [address] | | | | | Floor [place], [place] | | | | | | [address] | | | | | | [phone] | | | +--------+ + + + [...]
--- OUTSIDE RECORDS SUMMARY | ~2020-07-30 | XMS | Encounter Summary ---
Demographics + + + | Address | [address] | | | [place] [address] | + + + | Home Phone [...] + | Author | [facility] | + + + | Organization | [facility] [employer] [facility] | + + [...] + +------+ + | Care Inventory Control Clerk Name | Role | Phone | [...] Ave | | | | | [address] [place] [employer] for | [place], [place] | | | | | Health and Healing, | [address] | | | | | [facility] | [phone] | | | | | floor [place], [place] | | | | | | [address] | | | | | | [phone] | | | +--------+--------+ + + + [...] AM PDTLori called in an Rx for Bonnie for pt however the pharm called back with some questions. Ky said she will talk to Teresa lopez about this pt as we have never perscribed this drug. elephone Encounter - Mandi Mcdonnell - 08/14/2008 8:16 AM PDTPt wo uld like an RX for Bonnie. doc umented in this encounter Plan of Treatment Not on filedocumented as of this encounter Visit Diagnoses Not on filedocumented in this encounter"
--- OUTSIDE RECORDS SUMMARY | ~2020-07-30 | XMS | Encounter Summary ---
Demographics + + + | Address | [address] | | | [place] [address] | + + + | Home Phone [...] Organization | [facility] | | | [...] + | 10/10/ | Hospital | [facility] | | | | 1991 | Encounter | [facility] | | | | | | [facility] [address] | | | | | | [place], | | | | | | [place] [address] | | | | | | [phone] | | | +--------+ + + + [...]
--- OUTSIDE RECORDS SUMMARY | ~2020-07-30 | XMS | Encounter Summary ---
Demographics + + + | Address | [address] | | | [place] [address] | + + + | Home Phone [...] Providers + +------+ + | Care Billet Heater Operator Name | Role | Phone | + +------+ + PCP | Unavailable | + +------+ + Encounter Details +--------+ + + + + | Date | Type | Department | Care Team | Description | +--------+ + + + + | 08/12/ | Hospital | [facility] | Jenn [place], | | | 2012 | Encounter | HOSP[facility] EMERGENCY | [facility] [address] | | | | | CENTER [address] | [place] | | | | | [address] [place] | [id number] | | | | | [address] | | | | | | [phone] | | | +--------+ + + + [...]
--- OUTSIDE RECORDS SUMMARY | ~2020-07-30 | XMS | Encounter Summary ---
Demographics + + + | Address | [address] | | | [place] [address] | + + + | Home Phone [...] + | Author | [facility] [employer] [facility] | + + + | Organization | [facility] [employer] [facility] [...] Providers + +------+ + | Care Hand Blocker Name | Role | Phone | + [...] + + | 06/24/ | Emergency | [facility] Emergency | | | | 2010 | | Department [address] | | | | | | [address] | | | | | | [facility] | | | | | | [place], [place] | | | | | | [address] | | | | | | [phone] | | | +--------+ + + + [...]
--- OUTSIDE RECORDS SUMMARY | ~2020-07-30 | XMS | Encounter Summary ---
Demographics + + + | Address | [address] | | | [place] [address] | + + + | Home Phone [...] | Author | [facility] [employer] [facility] | + + + | Organization | [facility] [employer] [facility] [...] Team Providers + +------+ + | Care Pelt Grader Name | Role | Phone | [...] [address] | | | | | | [facility] | | | | | | [place], [place] | | | | | | [address] | | | | | | [phone] | | | +--------+ + + + [...] AM PDTdocumented in this encounter Miscellaneous Notes [facility] Cindy Polo - 03/09/2013 1:20 PM [...] her shunt is actually malfuctioning. HOLD [facility] - Macy Jacques - 03/09/2013 1:17 PM PDTPatient was supposed to be ED referral, now is being admitt ed at [facility], Dr. Cooney calling for consult, possible transfer. Paged Dr. Pedroza. El ectronically signed by Macy Jacques at 03/09/2013 1:[address] [facility] - Maryellen Mathew - 03/09/2013 11:[address] Veras, 37 yo f , second hand to Dr Holland from [facility], document ed in this encounter Plan of Treatment Not on filedocumented as of this encounter Visit Diagnoses Not on filedocumented in this encounter"
--- OUTSIDE RECORDS SUMMARY | ~2020-07-30 | XMS | Encounter Summary ---
Demographics + + + | Address | [address] | | | [place] [address] | + + + | Home Phone [...] + | Author | [facility] [employer] [facility] | + + + | Organization | [facility] [email or web address] [facility] [...] Providers + +------+ + | Care Maintenance Worker Name | Role | Phone [...] | Visit | Medicine Clinic at | CORRECTIONS OFFICER [address] [facility] | Pre-Operative | | | | [facility] 4th Floor [address] [facility] [address] | Examination (Primary | | | | [address] | [place], [place] | Dx); Pseudotumor | | | | Mailcode: CH4S | [phone] | Cerebri; Encounter | | | | [facility] | [phone] | for Long-Term | | | | and Healing, | | (Current) Use of | | | | Building 1,4th Floor | | Anticoagulants | | | | [place], [place] | | | | | | [address] | | | | | | [phone] | | | +--------+---------+ + + + [...] [facility] [address] [facility],4th [place] [phone] documented in this encou nter Plan of Treatment + + +--------+ + + | Name | Type | Priori | Associated Diagnoses | Order Schedule | | | | ty | | | + + +--------+ + + | ID COLLECTION VENOUS | Procedures | Routin | [...] DEPARTMENT OF | [address] | [place] [address] | | | PATHOLOGY | [address] | | | + + + + + | [facility] DEPARTMENT OF | [address] [facility] | [place] [address] | | | PATHOLOGY | [address] [...] | 29.5Comment: | 26.0 - 36.0 | [facility] | | | | APTT [...] + + + | [facility] | [address] [place] [address] | [place] [address] | | | PATHOLOGY | [address] | | | + + + + + | [facility] | [address] [facility] | [place] [address] | | | PATHOLOGY | [address] [...] DEPARTMENT OF | [address] | [place] [address] | | | PATHOLOGY | [address] | | | + + + + + | [facility] DEPARTMENT OF | [address] | [place] [address] | | | PATHOLOGY | [address] [...] | [facility] DEPARTMENT OF | [address] [facility] | [place] [address] | | | PATHOLOGY | [address] | | | + + + + + | [facility] DEPARTMENT OF | [address] [facility] | [place] [address] | | | PATHOLOGY | [address] [...] Performed At | + + + | [id number] Estimated GFR > 60 mL/min/1.73 sq m if non- | [facility] | | [place] [id number] Estimated GFR > 60 mL/min/1.73 sq m if | DEPARTMENT OF | | [place] GFR is estimated using the MDRD equation [...] + + + | [facility] | [address] | [place] [address] | | | PATHOLOGY | [address] | | | + + + + + | [facility] DEPARTMENT OF | [address] | [place] [address] | | | PATHOLOGY | [address] [...] + + | [facility] DEPARTMENT | [address] [place] [address] | [place] [address] | | | PATHOLOGY | [address] | | | + + + + + | [facility] DEPARTMENT OF | [facility] | [place] [address] | | | PATHOLOGY | [address] | | | + + + + + documented in this encounter Visit Diagnoses + + | Diagnosis | + + | Other specified pre-operative examination - Primary | + + | Pseudotumor cerebri Benign intracranial hypertension | + + | digital production manager (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
--- OUTSIDE RECORDS SUMMARY | ~2020-07-30 | XMS | Encounter Summary ---
Demographics + + + | Address | [address] | | | [place] [address] | + + + | Home Phone [...] Author | [facility] | + + + | Organization | [facility] | + [...] Team Providers + +------+ + | Care Share Dairy Farmer Name | Role | Phone | [...] Letter From | | 2007 | | [facility] | [address] | Specialist | | | | and Healing [address] | [place], [place] | | | | | [address] [facility] | [address] | | | | | Health and Healing, | [phone] | | | | | | | | | | | Floor [place], [place] | | | | | | [address] | | | | | | [phone] | | | +--------+ + + + [...] cerbral angiogram on 05/07/08. Her Employer is [employer]. Please fax letter to: Michael Puzrnvmjwqpdvy signed by Delma Cadet at 05/09/2008 9:34 AM PDTTelephone Encounter - David Frausto - 05/09/2008 9:23 AM PDTOpened in error documented in this encounter Plan of Treatment Not on filedocumented as of this encounter Visit Diagnoses Not on filedocumented in this encounter"
--- OUTSIDE RECORDS SUMMARY | ~2020-07-30 | XMS | Encounter Summary ---
Demographics + + + | Address | [address] | | | [place] [address] | + + + | Home Phone [...] Team Providers + +------+ + | Care Foster Care Social Worker Name | Role | Phone | + +------+ + PCP | Unavailable | + +------+ + Encounter Details +--------+ + + + + | Date | Type | Department | Care Team | Description | +--------+ + + + + | 10/20/ | Hospital | [facility] | | | | 1999 | Encounter | MED CTR EMERGENCY | | | | | | CENTER [address] | | | | | | [place] | | | | | | [address] | | | | | | [phone] | | | +--------+ + + + [...]
--- OUTSIDE RECORDS SUMMARY | ~2020-07-30 | XMS | Encounter Summary ---
Demographics + + + | Address | [address] | | | [place] [address] | + + + | Home Phone [...] Providers + +------+ + | Care Development Technical Lead Name | Role | Phone | + +------+ + PCP | Unavailable | + +------+ + Encounter Details +--------+ + + + + | Date | Type | Department | Care Team | Description | +--------+ + + + + | 01/15/ | Hospital | [facility] | Marine Leonard | | | 2011 | Encounter | MED CTR EMERGENCY | Vidal Gaurang [facility] | | | | | CENTER [address] | [place], [place] | | | | | [employer] [place] | [address] | | | | | [address] | | | | | | [phone] | | | +--------+ + + + [...] nt states that she was recently in [place] and saw her neurologist. She said she had some tests done in September and October, and said that her PUMPING STATION ENGINEER shunt was no longer in place. She [...] s tates that she was seen at [place] today for her headache, but she states [...] states that she was seen twice in [place] and was given some sort of medicine, but s he does know the name of it, but it did not help her headache and so she came here for to s kletsel dehe wintun further treatment. Apparently when she was at [place], she had received some morphine on one [...] to pseudotumor cerebri a nd having a PUMPING STATION ENGINEER shunt placed. Again, she states that the [...] Vidal Leonard DO Emergency Medicine JOB #: [id number] EXT JOB #:[id number] <Electronicall y Signed by Jt Leonard DO> 01/21/12 1454 documented in this encounter Plan of Treatment Not on filedocumented as of this encounter Visit Diagnoses Not on filedocumented in this encounter"
--- OUTSIDE RECORDS SUMMARY | ~2020-07-30 | XMS | Clinical Summary ---
Demographics + + + | Address | [address] | | | [place] [address] | + + + | Home Phone [...] + +------+ + | Care Business Services Sales Agent Name | Role | Phone | + +------+ + | Dennis Maddox | PCP | | + +------+ + Source Comments [facility] is fully live on both [facility] and [facility] In[facility] Allergies + + + [...] +--------+ | MEDICAID [place] | OHP | [id number] | | [phone] | [address] | Medica | | | PLUS | | [phone] | id | | | OPEN | | esent | | [place], [place] | | | | CARD | | | | [phone] | | + +--------+ +--------+ + +--------+ [...] | 1975 | [phone] | [place] [address] | | | rene | | | 9 (Home) | | + +--------+ +--------+ + + Advance Directives + + + + + | Type | Date Recorded | Patient | Explanation | | | | Supervisor Cabinetmaker | | + + + + + | Advance | | | | | Directives and | | | | | Living Will | | | | + + + + + | Power of | | | | | Clinical Quality Assurance Specialist | | | | + + + [...]
--- OUTSIDE RECORDS SUMMARY | ~2020-07-30 | XMS | Encounter Summary ---
Demographics + + + | Address | [address] | | | [place] [address] | + + + | Home Phone [...] Providers + +------+ + | Care Head Up Operator Name | Role | Phone | + +------+ + PCP | Unavailable | + +------+ + Encounter Details +--------+ + + + + | Date | Type | Department | Care Team | Description | +--------+ + + + + | 10/21/ | Hospital | [facility] | | | | 1991 | Encounter | MED [facility] | | | | | | [facility]ALTH [facility] [address] | | | | | | [place], | | | | | | [place] [address] | | | | | | [phone] | | | +--------+ + + + [...]
--- OUTSIDE RECORDS SUMMARY | ~2020-07-30 | XMS | Encounter Summary ---
Demographics + + + | Address | [address] | | | [place] [address] | + + + | Home Phone [...] Providers + +------+ + | Care Roller Die Cutting Machine Operator Name | Role | [...] left hand | [address] | | | | n | Weakness of | [address] | [place], | | | | | both hands | [place], | [place] [address] | | | | | [place] left | [place] [address] | Phone: | | | | | wrist Pain | Phone: | [phone] | | | | | of right | [phone] | Fax: | | | | | thumb | Fax: | [phone] | | | | | Trigger | [phone] | | | | | | finger of | | | | | | | right thumb | | | | | | | Procedures | | | | | | | VA MOTOR | | | | | | | &/SENS /> | | | | | | | NRV CNDJ | | | | | | | PRECONF | | | | | | | ELTRODE LIMB | | | | | | | VA NEEDLE | | | | | | [...] | | | | | Trigger | [address] | [address] | | | | | finger of | [place], | [place] | | | | | right thumb | [place] [address] | [address] | | | | | | Phone: | Phone: | | | | | | [phone] | [phone] | | | | | | Fax: | Fax: | | | | | | [phone] | [phone] | +--------+ + + + + + [...] | | Rehabilitatio | tunnel | PA-C [address] | [address] | | | | n | syndrome on | | [place], | | | | | left | [place] | [place] [address] | | | | | | WAY | Phone: | | | | | | [place], | [phone] | | | | | | [place] [address] | Fax: | | | | | | Phone: | [phone] | | | | | | [phone] | | | | | | | Fax: | | | | | | | [phone] | | +--------+--------+ + + + + Encounter Details +--------+---------+ + + + | Date | Type | Department | Care Team | Description | +--------+---------+ + + + | 01/03/ | Office | [facility] | Amanuel Jennings, | Numbness of left | | 2018 | Visit | PHYSIATRY [address] | MD [address] | hand (Primary Dx); | | | | [address] | [place], [place] | Weakness of both | | | | [place] | [address] | hands; Mass of left | | | | [address] | | wrist; Pain of right | | | | [phone] | | thumb; Trigger | | | [...] encounter Patient Instructions Patient Instructions Adelaide Santa, Rehab/Pre Vocational Counselor - 01/03/2019 1:00 PM PSTConmaurice t o [...] wrist dorsiflexion , finger abduction, and right charge entry. 4/5 hand charge entry on the left Reflexes: 2+ normal and [...] scribed by in my presence, Adelaide Santa, Rehab/Pre Vocational Counselor and are both accurate and comp lete. [...]
--- OUTSIDE RECORDS SUMMARY | ~2020-07-30 | XMS | Encounter Summary ---
Demographics + + + | Address | [address] | | | [place] [address] | + + + | Home Phone [...] + | Author | [email or web address] | + + + | Organization | [facility] [employer] [facility] [...] Team Providers + +------+ + | Care Fixture Designer Name | Role | Phone | [...] Ave | | | | | Ave [facility] | [place], [place] | | | | | Health and Healing, | [address] | | | | | Building 1, 8th | [phone] | | | | | floor [place], [place] | | | | | | [address] | | | | | | [phone] | | | +--------+ + + + [...]
--- OUTSIDE RECORDS SUMMARY | ~2020-07-30 | XMS | Encounter Summary ---
Demographics + + + | Address | [address] | | | [place] [...] Author | [facility] | + + + | Organization | [facility] [employer] [facility] | + + [...] Providers + +------+ + | Care Furnace Maintenance Name | Role | Phone | [...] 11/12/ | Telephone | [facility] | Bryna Wilson | Headache | | 2005 | | [place]/Ophthalmol | MD Jordin | | | | | [place] at [facility] [address] | | | | | | [address] [facility] | | | | | | Health and Healing, | | | | | | Building | | | | | | Floor [place], [place] | | | | | | [address] | | | | | | [phone] | | | +--------+ + + + [...] she could not find a ride to [place] for an exam. She lives 4 hours [...] understanding. BRYAN WILSON MD Ophthalmology Resident Physician [facility] documented in this en counter Plan of Treatment Not on filedocumented as of this encounter Visit Diagnoses Not on filedocumented in this encounter"
--- OUTSIDE RECORDS SUMMARY | ~2020-07-30 | XMS | Encounter Summary ---
Demographics + + + | Address | [address] | | | [place] [address] | + + + | Home Phone [...] Providers + +------+ + | Care Traffic Court Referee Name | Role | Phone | + +------+ + PCP | Unavailable | + +------+ + Encounter Details +--------+ + + + + | Date | Type | Department | Care Team | Description | +--------+ + + + + | 03/29/ | Hospital | [facility] | | | | 2006 | Encounter | MED CTR XRAY [address] | | | | | | [place] | | | | | | [place] [address] | | | | | | [phone] | | | +--------+ + + + [...]
--- OUTSIDE RECORDS SUMMARY | ~2020-07-30 | XMS | Encounter Summary ---
Demographics + + + | Address | [address] | | | [place] [address] | + + + | Home Phone [...] + | Author | [facility] | + + + | Organization | [facility] [facility] | + + + | Address | Unknown | + + + | Phone | Unavailable | + + + Support + + +---------+ + | Name | Relationship | Address | Phone | + + +---------+ + | Ruby Au | ECON | Unknown | | + + +---------+ + Care Team Providers + +------+ + | Care Filter Press Supervisor Name | Role | Phone | [...] | | | Ave [facility] for | [place], [place] | | | | | Health and Healing, | [address] | | | | | Building | [phone] | | | | | floor [place], [place] | | | | | | [address] | | | | | | [phone] | | | +--------+ + + + [...]
--- OUTSIDE RECORDS SUMMARY | ~2020-07-30 | XMS | Encounter Summary ---
Demographics + + + | Address | [address] | | | [place] [address] | + + + | Home Phone [...] Providers + +------+ + | Care Global Program Manager Name | Role | Phone [...] | | | [address] | | | | | [place], [place] | [place] [address] | | | | | [address] | | | | | | [phone] | | | +--------+ + + + [...]
--- OUTSIDE RECORDS SUMMARY | ~2020-07-30 | XMS | Encounter Summary ---
Demographics + + + | Address | [address] | | | [place] [address] | + + + | Home Phone [...] Providers + +------+ + | Care Circus Trainer Name | Role | Phone | + +------+ + PCP | Unavailable | + +------+ + Encounter Details +--------+ + + + + | Date | Type | Department | Care Team | Description | +--------+ + + + + | 09/27/ | Hospital | [facility] | | | | 1991 | Encounter | MED [facility] | | | | | | HEALTH [facility] [address] | | | | | | [place], | | | | | | [place] [address] | | | | | | [phone] | | | +--------+ + + + [...]
--- OUTSIDE RECORDS SUMMARY | ~2020-07-30 | XMS | Encounter Summary ---
Demographics + + + | Address | [address] | | | [place] [address] | + + + | Home Phone [...] + + | Author | [facility] | + + + | Organization | [facility] | + [...] Providers + +------+ + | Care Coal Miner Name | Role | Phone | + [...] | | | [address] Mailcode: RPB07 | [place], [place] | | | | | [place], [place] | [address] | | | | | [address] | [phone] | | | | | [phone] | | | +--------+ + + + [...]
--- OUTSIDE RECORDS SUMMARY | ~2020-07-30 | XMS | Encounter Summary ---
Demographics + + + | Address | [address] | | | [place] [address] | + + + | Home Phone [...] Organization | [facility] [...] Team Providers + +------+ + | Care Antique Auto Museum Maintenance Worker Name | Role | Phone | + +------+ + PCP | Unavailable | + +------+ + Encounter Details +--------+ + + + + | Date | Type | Department | Care Team | Description | +--------+ + + + + | 10/29/ | Hospital | [facility] | | | | 1991 | Encounter | MED CTR EMERGENCY | | | | | | CENTER [address] | | | | | | [place] | | | | | | [address] | | | | | | [phone] | | | +--------+ + + + [...]
--- OUTSIDE RECORDS SUMMARY | ~2020-07-30 | XMS | Encounter Summary ---
Demographics + + + | Address | [address] | | | [place] [address] | + + + | Home Phone [...] + + | Author | [facility] | + + + | Organization | [facility] [facility] | + [...] Providers + +------+ + | Care Practice Performance Manager Name | Role | Phone | + +------+ + | Brenden Benavides MD | PCP | | + +------+ + Encounter Details +--------+ + + + + | Date | Type | Department | Care Team | Description | +--------+ + + + + | 02/23/ | Telephone | [facility] | Brad Currie MD | | | 2006 | | [place] | | | | | | Neuro-Ophthalmology | | | | | | [address] [facility] | | | | | | Mailcode: PATTI | | | | | | [place] [address] | | | | | | [phone] | | | +--------+ + + + [...] seen immediately. Due to patient being in [place] I advised her to contact her oph thalmologist in [place] for immediate appointment. Patient said she would do this. Sergio Alicia Neuro Research And Development Manager for MD Julieta Nielson MD documented in th is encounter Plan of Treatment Not on filedocumented as of this encounter Visit Diagnoses Not on filedocumented in this encounter"
--- OUTSIDE RECORDS SUMMARY | ~2020-07-30 | XMS | Encounter Summary ---
Demographics + + + | Address | [address] | | | [place] [...] + | Author | [facility] | + + + | Organization | [facility] | + [...] Team Providers + +------+ + | Care Consumer Relations Complaint Clerk Name | Role | Phone [...] | | | 2006 | on | [place] | | | | | | Neuro-Ophthalmology | | | | | | [address] | | | | | | Mailcode: PATTI | | | | | | [place] [address] | | | | | | [phone] | | | +--------+ + + + [...] Brad Currie MD Neuro-Ophthalmology and Cerebrovascular Disease Special Machine Stitcher of Ophthalmology, Neurology, and Neurosurgery documented in this encounter Plan of Treatment Not on filedocumented as of this encounter Visit Diagnoses Not on filedocumented in this encounter"
--- OUTSIDE RECORDS SUMMARY | ~2020-07-30 | XMS | Encounter Summary ---
Demographics + + + | Address | [address] | | | [place] [address] | + + + | Home Phone [...] Author | [facility] | + + + | Organization | [facility] [employer] [facility] | + [...] Providers + +------+ + | Care Oncology Physician Assistant Name | Role | Phone | [...] | | | | | cerebri | [address] | | | | | | Procedures | Ave | | | | | | CONSULT TO | [place], [place] | | | | | | [facility] | [address] | | | | | | | Phone: | | | | | | | [phone] | | | | | | | Fax: | | | | | | | [phone] | | +--------+--------+ + + + + [...] Cerebri | | 2005 | Visit | [facility] | [address] | (Primary Dx) | | | | Rd Mailcode:OP14B | [place], [place] | | | | | [facility] | [address] | | | | | [place], [place] | [phone] | | | | | [address] | | | | | | [phone] | | | +--------+---------+ + + + [...] pressu re. Referral to Dr. 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 She feels that her symptoms were helped at the time of the placement of the shunt; the head aches and visual problems have worsened since shunt removal. She has opted to come to [facility] rather than to return to [place] based on travel convenience. Review of Systems: [...] brain without; Neuro-ophthalmology consultation. documented in this [facility] Plan of Treatment Not on filedocumented [...] | | + +---------+ + + | [facility] DEPARTMENT OF | | | | | RADIOLOGY | | | | + +---------+ + + documented in this encounter Visit Diagnoses + + | Diagnosis | + + | Pseudotumor cerebri - Primary Benign intracranial hypertension | + + documented in this encounter
--- OUTSIDE RECORDS SUMMARY | ~2020-07-30 | XMS | Encounter Summary ---
Demographics + + + | Address | [address] | | | [place] [address] | + + + | Home Phone [...] + | Author | [facility] | + + + | Organization | [facility] [employer] [facility] [...] Providers + +------+ + | Care Tile And Marble Installer Name | Role | Phone | [...] | | | | | | [address] [place], [place] | | | | | | [address] | | | | | | [phone] | | | +--------+ + + + [...]
--- OUTSIDE RECORDS SUMMARY | ~2020-07-30 | XMS | Encounter Summary ---
Demographics + + + | Address | [address] | | | [place] [address] | [...] | Author | [facility] | + + + | Organization | [facility] [employer] [facility] | + + + | Address | Unknown | + + + | Phone | Unavailable | + + + Support + + +---------+ + | Name | Relationship | Address | Phone | + + +---------+ + | Ruby Au | ECON | Unknown | | + + +---------+ + Care Team Providers + +------+ + | Care Neuropsychiatric Aide Name | Role | Phone | [...] [address] | (refill on [place]) | | | | Ave [facility] | [place], [place] | | | | | Health and Healing, | [address] | | | | | [facility] | [phone] | | | | | floor [place], [place] | | | | | | [address] | | | | | | [phone] | | | +--------+--------+ + + + [...] AM PDTPt is requesting a refill on [place]. Please call pt once this i s completed documented in thi s encounter Plan of Treatment Not on filedocumented as of this encounter Visit Diagnoses Not on filedocumented in this encounter"
[~2020-07-30 18:38] MED LIST changes: +CLARITIN10 MG PO; +LEVOFLOXACIN750 MG PO; +PROAIR HFA8.5 GM PO; +VITAMIN D3125 MC1 PO
--- NOTE | 2020-07-30 19:02 | EKG ---
[facility] [address] [facility] [place], [place] [address] Signed Sinus tachycardia Otherwise normal ECG When compared with ECG of 20-JUL-2020 00:10, QRS duration has decreased Confirmed by HERMINIO DUMONT MD ([id number]) on 07/30/2020 7:02:20 PM Electronically Signed By: HERMINIO DUMONT MD 07/30/201901 PATIENT NAME: GABY STEWART Electrocardiogram DATE OF : 75 PHYSICIAN: HERMINIO DUMONT MD REPORT #: [id number] REPORT IS CONFIDENTIAL AND NOT TO BE RELEASED WITHOUT AUTHORIZATION
== END 2020-07-30 20:00 ==
LOC: ED 18:38
DX: S22.49XD Multiple fractures of ribs, unspecified side, subsequent encounter for fracture with routine healing (principal); E11.9 Type 2 diabetes mellitus without complications; I10 Essential (primary) hypertension; E66.9 Obesity, unspecified; J44.9 Chronic obstructive pulmonary disease, unspecified; F17.200 Nicotine dependence, unspecified, uncomplicated; Z88.1 Allergy status to other antibiotic agents; Z88.5 Allergy status to narcotic agent; Z88.8 Allergy status to other drugs, medicaments and biological substances; Z79.899 Other long term (current) drug therapy; Z79.84 Long term (current) use of oral hypoglycemic drugs; X58.XXXD Exposure to other specified factors, subsequent encounter
CPT/HCPCS: 71045; 93005; 93010; 99285-25

== ENCOUNTER 2020-08-03 17:37 | Emergency (ER) | payer OTHER ==
[~2020-08-03] VITALS: Ht 165.1 cm; Wt 99.8 kg
--- OUTSIDE RECORDS SUMMARY | ~2020-08-03 | XMS | Encounter Summary ---
Demographics + + + | Address | [address] | | | [place] [address] | + + + | Home Phone | | + + + | Preferred Language | Unknown | + + + | Marital Status | | + + + | Alevism Affiliation | Unknown | + + + | Race | or | + + + | Ethnic Group | Not or | + + + Author + + + | Author | [facility] | | | and [place] | + + + | Organization | [facility] | | | [facility] [place] | + + + | Address | Unknown | + + + | Phone | Unavailable | + + + Support + + +---------+ + | Name | Relationship | Address | Phone | + + +---------+ + | Saad Chamorro | ECON | Unknown | | + + +---------+ + Care Team Providers + +------+ + | Care Banana Room Cutter Name | Role | Phone | + +------+ + PCP | Unavailable | + +------+ + Encounter Details +--------+ + + + + | Date | Type | Department | Care Team | Description | +--------+ + + + + | 09/30/ | Hospital | [facility] | | | | 1991 | Encounter | [facility] | | | | | | [facility]ALTH [facility] [address] | | | | | | [place], | | | | | | [place] [address] | | | | | | [phone] | | | +--------+ + + + [...]
--- OUTSIDE RECORDS SUMMARY | ~2020-08-03 | XMS | Encounter Summary ---
Demographics + + + | Address | [address] | | | [place] [address] | + + + | Home Phone | | + + + | Preferred Language | Unknown | + + + | Marital Status | | + + + | Jainism Affiliation | NON | + + + | Race | or | + + + | Ethnic Group | Not or | + + + Author + + + | Author | [facility] | + + + | Organization | [facility] [employer] [facility] | + + + | Address | Unknown | + + + | Phone | Unavailable | + + + Support + + +---------+ + | Name | Relationship | Address | Phone | + + +---------+ + | Ruby Au | ECON | Unknown | | + + +---------+ + Care Team Providers + +------+ + | Care Manager Energy Name | Role | Phone | + +------+ + | Yeison Simms MD | PCP | Unavailable | + +------+ + Reason for Visit + +--------+ + | Reason | Onset | Comments | | | Date | | + +--------+ + | CAPONE - Headache | 09/04/ | questions about CAPONE | | | 2008 | | + +--------+ + Encounter Details +--------+ + + + + | Date | Type | Department | Care Team | Description | +--------+ + + + + | 09/04/ | Telephone | Neurosurgery at | Sam Pedroza MD | CAPONE - Headache | | 2007 | | [facility] [address] | [address] | (questions about CAPONE) | | | | Ave [facility] | [place], [place] | | | | | Health and Healing, | [address] | | | | | [facility] | [phone] | | | | | floor [place], [place] | | | | | | [address] | | | | | | [phone] | | | +--------+ + + + [...] this encounter Miscellaneous Notes Telephone Encounter - Mandi Mcdonnell - 09/06/2008 11:30 AM PDTMedication has been faxed to skylar saini. Pt will be notified today by Kiki that she will no longer be prescribed pain meds fro m NSG she needs to be followed by her PCP for pain management from here forth. Pt will be s ent a letter to this extent. Telephone Encounter - Mandi Mcdonnell - 09/05/2008 3:24 PM PDTPt called again complaining of CAPONE x 2 days. She would also like a refill on [place]. Per Dr. Pedroza, pt's may only have pain medication prescribed by NSG for 30 days post-op after which pain must be managed by PCP.El ectronically signed by Mandi Mcdonnell at 09/05/2008 3:24 PM PDTTelephone Encounter - Mandi Mcdonnell - 09/04/2008 10:50 AM PDTPt is wondering how to differentiate between a "normal" heada pratima and on that is caused by her shunt. Please advise. documented in this encounter Plan of Treatment Not on filedocumented as of this encounter Visit Diagnoses Not on filedocumented in this encounter
--- OUTSIDE RECORDS SUMMARY | ~2020-08-03 | XMS | Encounter Summary ---
Demographics + + + | Address | [address] | | | [place] [address] | + + + | Home Phone | | + + + | Preferred Language | Unknown | + + + | Marital Status | | + + + | Faith Affiliation | Unknown | + + + | Race | or | + + + | Ethnic Group | Not or | + + + Author + + + | Author | [facility] | | | and [place] | + + + | Organization | [facility] | | | [...] Team Providers + +------+ + | Care Optical Glass Wet Inspector Name | Role | Phone | + +------+ + PCP | Unavailable | + +------+ + Encounter Details +--------+ + + + + | Date | Type | Department | Care Team | Description | +--------+ + + + + | 04/18/ | Hospital | [facility] | | | | 1991 | Encounter | MED CTR EMERGENCY | | | | | | CENTER [address] | | | | | | [place] | | | | | | [address] | | | | | | [phone] | | | +--------+ + + + [...]
--- OUTSIDE RECORDS SUMMARY | ~2020-08-03 | XMS | Encounter Summary ---
Demographics + + + | Address | [address] | | | [place] [address] | + + + | Home Phone | | + + + | Preferred Language | Unknown | + + + | Marital Status | | + + + | Latter-Day Affiliation | NON | + + + | Race | or | + + + | Ethnic Group | Not or | + + + Author + + + | Author | [facility] | + + + | Organization | [facility] [employer] [facility] | + + + | Address | Unknown | + + + | Phone | Unavailable | + + + Support + + +---------+ + | Name | Relationship | Address | Phone | + + +---------+ + | Ruby Au | ECON | Unknown | | + + +---------+ + Care Team Providers + +------+ + | Care It Applications Manager Name | Role | Phone | + +------+ + | Yeison Simms MD | PCP | Unavailable | + +------+ + Reason for Visit + +--------+ + | Reason | Onset | Comments | | | Date | | + +--------+ + | Erroneous Encounter | 08/15/ | | | - Disregard | 2007 | | + +--------+ + Encounter Details +--------+--------+ + + + | Date | Type | Department | Care Team | Description | +--------+--------+ + + + | 08/15/ | Refill | Neurosurgery at | Kiki Rosen, | Erroneous Encounter | | 2007 | | [place] [facility] | [place] [facility] | - Disregard | | | | and Healing [address] | [address] | | | | | [address] [facility] | [address] | | | | | Health and Healing, | [place], [place] | | | | | [facility] | [address] | | | | | Floor [place], [place] | | | | | | [address] | | | | | | [phone] | | | +--------+--------+ + + + [...] this encounter Miscellaneous Notes Telephone Encounter - Kiki Rosen 08/15/2008 10:45 AM PDTCalled in [place] 5 [address]80 with on refill to [phone] Tdocumented in this encounter Plan of Treatment Not on filedocumented as of this encounter Visit Diagnoses Not on filedocumented in this encounter"
--- OUTSIDE RECORDS SUMMARY | ~2020-08-03 | XMS | Encounter Summary ---
Demographics + + + | Address | [address] | | | [place] [address] | + + + | Home Phone | | + + + | Preferred Language | Unknown | + + + | Marital Status | | + + + | Taoism Affiliation | NON | + + + | Race | or | + + + | Ethnic Group | Not or | + + + Author + + + | Author | [facility] [email or web address] [facility] | + + + | Organization | [facility] [employer] [facility] | + + + | Address | Unknown | + + + | Phone | Unavailable | + + + Support + + +---------+ + | Name | Relationship | Address | Phone | + + +---------+ + | Ruby Au | ECON | Unknown | | + + +---------+ + Care Team Providers + +------+ + | Care Studio Operations Engineer In Charge Name | Role | Phone | + +------+ + | Yeison Simms MD | PCP | Unavailable | + +------+ + Reason for Visit + +--------+ + | Reason | Onset | Comments | | | Date | | + +--------+ + | Letter Encounter | 01/22/ | | | | 2008 | | + +--------+ + Encounter Details +--------+ + + + + | Date | Type | Department | Care Team | Description | +--------+ + + + + | 01/22/ | Telephone | Neurosurgery at | Sam Pedroza MD | Letter Encounter | | 2009 | | [facility] | [address] | | | | | and Healing [address] | [place], [place] | | | | | [address] [facility] | [address] | | | | | Health and Healing, | [phone] | | | | | | | | | | | Floor [place], [place] | | | | | | [address] | | | | | | [phone] | | | +--------+ + + + [...] this encounter Miscellaneous Notes Telephone Encounter - Citlaly Aguilar - 01/27/2009 1:25 PM PSTInformed patient to fax [email or web address] l records release to the medical records department. elephone Encounter - Citlaly Aguilar - 01/22/2009 2:08 PM PSTPatient called to request documentation, on her care with Dr. Pedroza, so she may give this informati on to her insurance defense attorney. Patient indicated that she also needs documentation stating when her la st surgery was and the medications that were prescribed to her for her post-operative recove ry and pain management. Patient requested that this information be sent to [facility], [place] [address] [place] [address]. Please call patient to discuss. documented in this encounter Plan of Treatment Not on filedocumented as of this encounter Visit Diagnoses Not on filedocumented in this encounter"
--- OUTSIDE RECORDS SUMMARY | ~2020-08-03 | XMS | Encounter Summary ---
Demographics + + + | Address | [address] | | | [place] [address] | + + + | Home Phone | | + + + | Preferred Language | Unknown | + + + | Marital Status | | + + + | Yazidism Affiliation | NON | + + + | Race | or | + + + | Ethnic Group | Not or | + + + Author + + + | Author | [facility] | + + + | Organization | [facility] | + + + | Address | Unknown | + + + | Phone | Unavailable | + + + Support + + +---------+ + | Name | Relationship | Address | Phone | + + +---------+ + | Ruby Au | ECON | Unknown | | + + +---------+ + Care Team Providers + +------+ + | Care Gravedigger Name | Role | Phone | + +------+ + | Brenden Benavides MD | PCP | | + +------+ + Encounter Details +--------+ + + + + | Date | Type | Department | Care Team | Description | +--------+ + + + + | 02/21/ | Telephone | [facility] | Pascual Berm[address]z [address] | | | 2006 | | [place] | [address] | | | | | Oculoplastics at | [facility], [place] | | | | | Maicol [address] | [address] | | | | | [address] | | | | | | [facility] [place] | | | | | | [facility], 5th floor | | | | | | [place] [address] | | | | | | [phone] | | | +--------+ + + + [...] this encounter Miscellaneous Notes Telephone Encounter - Pascual Bermudez - 02/21/2007 4:29 PM PDTLate entry note from 02/19/07. R cvd TC from patient requesting addional Vicodin. I told her to come in to be seen, but she r efused, saying she did not have transportation. I agreed to call in 10 Vicodin and told her she must arrange to see Dr. Hughes or Dr. Currie in the next 1-2 days to be evaluated. We agreed I will not call in any more narcotics for her. When I called in the Vicodin prescription to the pharmacist in [place], he asked me if I was calling from a pain clinic, and volunteered that he knows the patient well, warning me t hat she will continue to ask for more narcotics.Electronically signed by Pascual Bermudez at 01/27 4:31 PM PDTdocumented in this encounter Plan of Treatment Not on filedocumented as of this encounter Visit Diagnoses Not on filedocumented in this encounter"
--- OUTSIDE RECORDS SUMMARY | ~2020-08-03 | XMS | Encounter Summary ---
Demographics + + + | Address | [address] | | | [place] [address] | + + + | Home Phone | | + + + | Preferred Language | Unknown | + + + | Marital Status | | + + + | Voodoo Affiliation | NON | + + + | Race | or | + + + | Ethnic Group | Not or | + + + Author + + + | Author | [facility] | + + + | Organization | [facility] [employer] [facility] | + + + | Address | Unknown | + + + | Phone | Unavailable | + + + Support + + +---------+ + | Name | Relationship | Address | Phone | + + +---------+ + | Ruby Au | ECON | Unknown | | + + +---------+ + Care Team Providers + +------+ + | Care Cinnamon Grinder Name | Role | Phone | [...] | | | | | [facility] [place] [facility] | [address] | | | | | Health and Healing, | [place], [place] | | | | | | [address] | | | | | Floor [place], [place] | | | | | | [address] | | | | | | [phone] | | | +--------+ + + + [...] encounter Miscellaneous Notes Telephone Encounter - Kiki Rosne - 08/23/2008 1:31 PM PDTPt had stomach [...]
--- OUTSIDE RECORDS SUMMARY | ~2020-08-03 | XMS | Encounter Summary ---
Demographics + + + | Address | [address] | | | [place] [address] | + + + | Home Phone | | + + + | Preferred Language | Unknown | + + + | Marital Status | | + + + | Yazidi Affiliation | NON | + + + | Race | or | + + + | Ethnic Group | Not or | + + + Author + + + | Author | [facility] | + + + | Organization | [facility] [facility] | + + + | Address | Unknown | + + + | Phone | Unavailable | + + + Support + + +---------+ + | Name | Relationship | Address | Phone | + + +---------+ + | Ruby Au | ECON | Unknown | | + + +---------+ + Care Team Providers + +------+ + | Care Body Former Name | Role | Phone | + [...] + | Closed | | Ophthalmology | Diagnoses | Kasia, | Kush, | | | | | Pseudotumor | MD Sam | MD Brad | | | | | cerebri | [address] | | | | | | Procedures | Ave | | | | | | CONSULT TO | [place], [place] | | | | | | [facility] | [address] | | | | | | | Phone: | | | | | | | [phone] | | | | | | | Fax: | | | | | | | [phone] | | +--------+--------+ + + + + Reason for Visit + + + | Reason | Comments | + + + | New patient | here for possible shunt failure | | consultation | | + + + Encounter Details +--------+---------+ + + + | Date | Type | Department | Care Team | Description | +--------+---------+ + + + | 09/05/ | Office | Neurosurgery [address] | Sam Pedroza MD | Pseudotumor Cerebri | | 2005 | Visit | [facility] | [address] | (Primary Dx) | | | | Rd Mailcode:OP14B | [place], [place] | | | | | [facility] | [address] | | | | | [place], [place] | [phone] | | | | | [address] | | | | | | [phone] | | | +--------+---------+ + + + Social History + +-------+ [...] + + + | Blood Pressure | 136/99 | 09/05/2006 11:14 AM | | | | | PDT | | + + + + + | Pulse | 74 | 09/05/2006 11:14 AM | | | | | PDT | | + + + + + | Temperature | - | - | | + + + + + | Respiratory Rate | 16 | 09/05/2006 11:14 AM | | | | | PDT | | + + + + + | Oxygen Saturation | - | - | | + + + + + | Inhaled Oxygen | - | - | | | Concentration | | | | + + + + + | Weight | 108.9 kg (240 lb) | 09/05/2006 11:14 AM | | | | | PDT | | + + + + + | Height | 165.1 cm (5' 5") | 09/05/2006 11:14 AM | | | | | PDT | | + + + + + | Body Mass Index | 39.94 | 09/05/2006 11:14 AM | | | | | PDT | | + + + + + documented in this encounter Patient Instructions Patient Instructions 09/05/2006 11:[address] scan brain without contrast. 2. Neuro-ophthalmology consultation. documented in this encounter Progress Notes J Carlos Nice - 09/05/2006 11:44 AM PDTAnnabella Au is a 31 y.o. female with a histor y of headaches. She was being treated for the headahces but then began to suffer visual lesley nges last January. She was referred to ophthalmology where she states that abnormalities on e xam were documented. This prompted a lumbar puncture which revealed elevated opening pressu re. Referral to Dr. Maloney in [place], [place] where a lumboperitoneal shunt was placed and subsequently explanted due to infection and migration of the catheter tip from the peritoneal space. She feels that her symptoms were helped at the time of the placement of the shunt; the head aches and visual problems have worsened since shunt removal. She has opted to come to [facility] rather than to return to [place] based on travel convenience. Review of Systems: General: No constitutional symptoms of fevers, fatigue, chills, weight loss or sweats. Eyes: Positive visual change. No double vision, eye pain, eye irritation, discharge, blurr ed vision or light sensitivity. Ears, Nose and Throat: No hearing loss, ringing in the ears, ear discharge, earache, noseb seth, nasal congestion, difficulty swallowing, hoarseness or sore throat. Respiratory: No shortness of breath, coughing up blood, excessive sputum, cough, chest dis comfort or wheezing. Musculoskeletal: No joint pain, swelling, stiffness, back pain, arthritis, muscle aches, m uscle cramps or loss of strength. Cardiovascular: No chest pain, skipping beats, lightheadedness, difficulty breathing uprig ht or lying down, fatigue, near fainting or fainting, palpitations, weight gain, edema, leg cramps. Gastrointestinal: No loss of appetite, excessive appetite, indigestion, vomiting, nausea, constipation, gas, abdominal pain, hemorrhoids, diarrhea, bloating, bloody stools or dark ta rry stools. Genitourinary: No urinary frequency, blood in urine, difficulty in urination, discharge, p ainful urination, incontinence, urinary urgency or genital sores. Neurologic: Positive headaches. No inability to speak, poor balance, numbness, tingling, t remors, memory loss, disturbances in coordination or sensation of room spinning. Skin: No itching, rash, poor wound healing, night sweats, changes in skin color, dryness, flushing or suspicious lesions. Psychological: No abnormal anxiety, depression, thoughts of suicide or hallucinations. Heme/Lymphatic: No skin discoloration, abnormal bleeding or enlarged lymph nodes. Endrocrine: No heat intolerance, cold intolerance, excessive hunger or excessive thirst. Allergic: No seasonal allergies, hives or rash, persistent infections or HIV exposure. PE: A&OX3. COR: RRR Chest: CTA Neurological exam reveals normal without focal findings, mental status, speech normal, aler t and oriented x iii, JULIETA, cranial nerves 2-12 intact, muscle tone and strength normal and symmetric, reflexes normal and symmetric, Babinski response negative, sensation grossly nor mal, gait and station normal, finger to nose and cerebellar exam normal. Imaging: CT brain from May 27, 2006 demonstrates: Assessment: Headache; visual change; rule out pseudotumor cerebri. Plan: CT scan brain without; Neuro-ophthalmology consultation. documented in this [facility] er Plan of Treatment Not on filedocumented as of this encounter Procedures + +--------+ + + + | Procedure Name | Priori | Date/Time | Associated Diagnosis | Comments | | | ty | | | | + +--------+ + + + | CT HEAD WO CONTRAST | Routin | 09/05/2006 | Pseudotumor | Results for this | | | e | 1:43 PM | Cerebri | procedure are in the | | | | PDT | | results section. | + +--------+ + + + documented in this encounter Results CT HEAD WO CONTRAST (09/05/2006 1:43 PM PDT) + + + + + + | Component | Value | Ref Range | Performed | Pathologist | | | | | At | Signature | + + + + + + | CT HEAD WO | Radiologist 1: | | | | | CONTRAST | [facility] | | | | | | M.DMikeNONCONTRAST HEAD CT | | | | | | HISTORY: Pseudotumor | | | | | | cerebri TECHNIQUE: Axial | | | | | | noncontrast 6 mm scans | | | | | | from the foramen magnum | | | | | | tovertex. COMPARISON:CT | | | | | | head 05/27/2006 performed | | | | | | at an outside | | | | | | institution. FINDINGS: | | | | | | The ventricles remain | | | | | | normal in size and | | | | | | shape. No masseffect | | | | | | or midline shift. No | | | | | | intraparenchymal or | | | | | | extraaxialhemorrhage. | | | | | | Fierro white | | | | | | differentiation is well | | | | | | maintained.Mastoid air | | | | | | cells and visualized | | | | | | paranasal sinuses are | | | | | | clear. IMPRESSION: | | | | | | Normal CT head. END OF | | | | | | IMPRESSION | | | | + + + + + + + + | Specimen | + + | | + + + +---------+ + + | Performing | Address | City/State/Zipcode | Phone Number | | Organization | | | | + +---------+ + + | [facility] DEPARTMENT OF | | | | | RADIOLOGY | | | | + +---------+ + + documented in this encounter Visit Diagnoses + + | Diagnosis | + + | Pseudotumor cerebri - Primary Benign intracranial hypertension | + + documented in this encounter
--- OUTSIDE RECORDS SUMMARY | ~2020-08-03 | XMS | Encounter Summary ---
Demographics + + + | Address | [address] | | | [place] [address] | + + + | Home Phone | | + + + | Preferred Language | Unknown | + + + | Marital Status | | + + + | Caodaism Affiliation | NON | + + + | Race | or | + + + | Ethnic Group | Not or | + + + Author + + + | Author | [facility] [employer] [facility] | + + + | Organization | [facility] [employer] [facility] | + + + | Address | Unknown | + + + | Phone | Unavailable | + + + Support + + +---------+ + | Name | Relationship | Address | Phone | + + +---------+ + | Ruby Au | ECON | Unknown | | + + +---------+ + Care Team Providers + +------+ + | Care Production Hand Name | Role | Phone | + +------+ + | Yeison Simms MD | PCP | Unavailable | + +------+ + Encounter Details +--------+ + + + + | Date | Type | Department | Care Team | Description | +--------+ + + + + | 05/26/ | Telephone | Neurosurgery at | Kiki Rosen, | | | 2008 | | [facility] | [facility] | | | | | and Healing [address] | Neurosurgery [address] | | | | | [address] for | [address] | | | | | Health and Healing, | [place], [place] | | | | | | [address] | | | | | Floor [place], [place] | | | | | | [address] | | | | | | [phone] | | | +--------+ + + + [...] Telephone Encounter - Kiki Rosen PA - 06/04/2009 2:50 PM PDTSp[facility] with [facility] spoke with her [facility] prior. Having incisional pain, worse with walking, and sitting too long. Lying down is best her PCP gave her narcotics for this. Told her we would be happy to see her in clinic ele phone Encounter - Kiki Rosen PA - 05/26/2009 3:13 PM PDTSpoke with patient, she is howell ving some emergency on other line requests call back. documented in this encounter Plan of Treatment Not on filedocumented as of this encounter Visit Diagnoses Not on filedocumented in this encounter"
--- OUTSIDE RECORDS SUMMARY | ~2020-08-03 | XMS | Encounter Summary ---
Demographics + + + | Address | [address] | | | [place] [address] | + + + | Home Phone | | + + + | Preferred Language | Unknown | + + + | Marital Status | | + + + | Mandaeism Affiliation | Unknown | + + + | Race | or | + + + | Ethnic Group | Not or | + + + Author + + + | Author | [facility] | | | and [place] | + + + | Organization | [facility] | | | and [...] Team Providers + +------+ + | Care Bookbinder Chief Name | Role | Phone | + +------+ + PCP | Unavailable | + +------+ + Encounter Details +--------+ + + + + | Date | Type | Department | Care Team | Description | +--------+ + + + + | 01/01/ | Hospital | [facility] | [place] | | | 2009 | Encounter | MED CTR EMERGENCY | Brad Yu MD [address] | | | | | [place] [address] | [facility] | | | | | [place] | [place] [address] | | | | | [address] | [phone] | | | | | [phone] | | | +--------+ + + + [...]
--- OUTSIDE RECORDS SUMMARY | ~2020-08-03 | XMS | Encounter Summary ---
Demographics + + + | Address | [address] | | | [place] [address] | + + + | Home Phone | | + + + | Preferred Language | Unknown | + + + | Marital Status | | + + + | Christianity Affiliation | Unknown | + + + | Race | or | + + + | Ethnic Group | Not or | + + + Author + + + | Author | [facility] | | | and [place] | + + + | Organization | [facility] | | | and [place] | + + + | Address | Unknown | + + + | Phone | Unavailable | + + + Support + + +---------+ + | Name | Relationship | Address | Phone | + + +---------+ + | Asadreina Chamorro | ECON | Unknown | | + + +---------+ + Care Team Providers + +------+ + | Care Asp Net Developer Name | Role | Phone | + +------+ + PCP | Unavailable | + +------+ + Encounter Details +--------+ + + + + | Date | Type | Department | Care Team | Description | +--------+ + + + + | 11/04/ | Hospital | [facility] | Unknown, | | | 2005 | Encounter | MED CTR XRAY [address] | Practitioner, MD . | | | | | [address] [place] | | | | | | [place] [address] | (Fax) | | | | | [phone] | | | +--------+ + + + [...]
--- OUTSIDE RECORDS SUMMARY | ~2020-08-03 | XMS | Encounter Summary ---
Demographics + + + | Address | [address] | | | [place] [address] | + + + | Home Phone | | + + + | Preferred Language | Unknown | + + + | Marital Status | | + + + | Adventism Affiliation | NON | + + + | Race | or | + + + | Ethnic Group | Not or | + + + Author + + + | Author | [facility] | + + + | Organization | [facility] [facility] [...] Team Providers + +------+ + | Care Agile Java Developer Name | Role | Phone | + +------+ + | Dennis Maddox | PCP | | + +------+ + Reason for Visit + +--------+ + | Reason | Onset | Comments | | | Date | | + +--------+ + | Care Coordination | 01/31/ | | | | 2017 | | + +--------+ + Encounter Details +--------+ + + + + | Date | Type | Department | Care Team | Description | +--------+ + + + + | // | Telephone | [facility] | Eulalio Arevalo, | Care Coordination | | 2018 | | [place] | [address] | | | | | Neuro-Ophthalmology | [place], [place] | | | | | at [facility] [address] | [address] | | | | | [facility] | [phone] | | | | | Health and Healing, | | | | | | | | | | | | Floor [place], [place] | | | | | | [address] | | | | | | [phone] | | | +--------+ + + + [...] this encounter Miscellaneous Notes Telephone Encounter - Mayelin Schofield - 02/01/2018 9:02 AM [place] tried to call patient s everal times this morning.(01/31/18) Phone rings once or twice and then goes to a busy signal. Wanting to see if she made appointment with a doctor or went to the ED. Joyce elephone Encounter - Mayelin Schofield - 01/31/2018 3:22 PM PSTSylvia used to see Dr. Currie. Last was . Dr. Wilson our in 2012. She has had some vision changes which started about 2 months ago. Seeing spots. Her vision has never been as bad as it is now. Lives in [place], and says there is limite d access to eye doctors. She does have whoosing in ears, better when she lays down. She ment ioned that her shunt was not in place, was told it was not working for a very long time. She takes naproxin for her headaches. I told her she needed to go to the hospital and have her eyes dilated to see if she had re-occurance of papilledema. I also told her she could see on e of our doctors in [place]. She also lives about 40 minutes from [place]. She wo uld like to go there. I gave her a couple of doctors names from the internet and she will ca ll. I asked her to keep us informed. She says she will do so. Joyce documented in this e ncounter Plan of Treatment Not on filedocumented as of this encounter Visit Diagnoses Not on filedocumented in this encounter"
--- OUTSIDE RECORDS SUMMARY | ~2020-08-03 | XMS | Encounter Summary ---
Demographics + + + | Address | [address] | | | [place] [address] | + + + | Home Phone | | + + + | Preferred Language | Unknown | + + + | Marital Status | | + + + | Congregation Affiliation | NON | + + + | Race | or | + + + | Ethnic Group | Not or | + + + Author + + + | Author | [facility] | + + + | Organization | [facility] [employer] [facility] | + + + | Address | Unknown | + + + | Phone | Unavailable | + + + Support + + +---------+ + | Name | Relationship | Address | Phone | + + +---------+ + | Ruby Au | ECON | Unknown | | + + +---------+ + Care Team Providers + +------+ + | Care Crisis Therapist Name | Role | Phone | + +------+ + | Yeison Simms MD | PCP | Unavailable | + +------+ + Reason for Visit + +--------+ + | Reason | Onset | Comments | | | Date | | + +--------+ + | Treatment Question | 03/03/ | | | | 2010 | | + +--------+ + Encounter Details +--------+ + + + + | Date | Type | Department | Care Team | Description | +--------+ + + + + | 03/03/ | Telephone | Neurosurgery at | Eladio Pang MD | Treatment Question | | 2010 | | [facility] [address] | [address] | | | | | Ave [facility] | [place], [place] | | | | | Health and Healing, | [address] | | | | | [facility] | [phone] | | | | | floor [place], [place] | | | | | | [address] | | | | | | [phone] | | | +--------+ + + + [...] Telephone Encounter - Eladio Pang MD - 03/03/2011 5:36 PM PDTPatient called to inquire h ow to see if her LP shunt was still in place. She has a shunt for pseudotumor. She was con cerned that it may have migrated out of position. I informed her that the standard workup w ould include abdominal x rays to evaluate whether or not the tubing is in the back and in th e abdomen. Unfortunately, this would not be a functional study to determine flow through th e shunt. She reported that she does have a history of a malpositioned abdominal catheter an d during that time, she had fluid build up in her abdomen. I related to her that as long as this wasn't recurring, that her shunt tubing was likely in the abdomen. All her questions were answered to her stated satisfaction. Eladio Pang MD NEUROSURGERY R2 document ed in this encounter Plan of Treatment Not on filedocumented as of this encounter Visit Diagnoses Not on filedocumented in this encounter"
--- OUTSIDE RECORDS SUMMARY | ~2020-08-03 | XMS | Encounter Summary ---
Demographics + + + | Address | [address] | | | [place] [address] | + + + | Home Phone | | + + + | Preferred Language | Unknown | + + + | Marital Status | | + + + | Bahai Affiliation | Unknown | + + + [...] Team Providers + +------+ + | Care Shot Man Name | Role | Phone | + +------+ + PCP | Unavailable | + +------+ + Encounter Details +--------+ + + + + | Date | Type | Department | Care Team | Description | +--------+ + + + + | 05/15/ | Hospital | [facility] | | | | 1991 | Encounter | MED CTR XRAY [address] | | | | | | [place] | | | | | | [place] [address] | | | | | | [phone] | | | +--------+ + + + [...]
--- OUTSIDE RECORDS SUMMARY | ~2020-08-03 | XMS | Encounter Summary ---
Demographics + + + | Address | [address] | | | [place] [address] | + + + | Home Phone [...] | Author | [facility] [employer] [facility] | + + + | Organization | [facility] [employer] [facility] | + + + | Address | Unknown | + + + | Phone | Unavailable | + + + Support + + +---------+ + | Name | Relationship | Address | Phone | + + +---------+ + | Ruby Au | ECON | Unknown | | + + +---------+ + Care Team Providers + +------+ + | Care Consulting Utility Forester Name | Role | Phone | + +------+ + | Brenden Benavides MD | PCP | | + +------+ + Reason for Visit +---------+ + | Reason | Comments | +---------+ + | Post Op | 1 day S/P Left ONSF | +---------+ + Encounter Details +--------+---------+ + + + | Date | Type | Department | Care Team | Description | +--------+---------+ + + + | 02/08/ | Office | [facility] | Hay Hughes MD 3375 | Pseudotumor Cerebri | | 2006 | Visit | [place] | Cassi Hammer | (Primary Dx) | | | | Oculoplastics at | [place], [place] | | | | | [address] | [address] | | | | | [address] | [phone] | | | | | [facility] [place] | | | | | | [address] | | | | | | [place] [address] | | | | | | [phone] | | | +--------+---------+ + + + [...] + documented as of this encounter Progress Ashley Cotto - 02/08/2007 10:35 AM PDT Annabella Au is a 31 y.o. female who presents to clinic today. Chief Complaint Patient presents with Post op 1 day S/P Left ONSF-pt doing well but is very anxious, pain managed w/meds, no diplopia Visual Acuity: VAsc VAcc VAph RE 20/25+ LE 20/25- RE LE 0 0 0 0 0 0 0 0 No diplopia-pain w/movement Pupil Exam: RRL & No APD Slit Lamp Exam: RE LE Lids: normal Conjunctiva: clear Cornea: clear AC: deep and quiet Iris: normal Lens: clear Lids: 2+ edema, mild mechanical ptosis, wound looks good Conjunctiva: clear Cornea: mild inf PEE AC: deep and quiet Iris: normal Lens: clear Reviewed and edited above tech note after repeating pertinent examination. Encounter Diagnoses Code Name Primary? 348.2AD Pseudotumor Cerebri Yes Imp: 1. Doing well s/p left ONSF Plan: 1. Reviewed PO instructions. 2. F/U with Dr. Currie. 3. Follow up 1 month or PRN. documented in this encounter Plan of Treatment Not on filedocumented as of this encounter Visit Diagnoses + + | Diagnosis | + + | Pseudotumor cerebri - Primary Benign intracranial hypertension | + + documented in this encounter"
--- OUTSIDE RECORDS SUMMARY | ~2020-08-03 | XMS | Encounter Summary ---
Demographics + + + | Address | [address] | | | [place] [address] | + + + | Home Phone [...] + + | Author | [facility] | + + + | Organization | [facility] [email or web address] [facility] | + [...] Team Providers + +------+ + | Care Silverware Washer Name | Role | Phone | + +------+ + | Brenden Benavides MD | PCP | | + +------+ + Reason for Visit + +--------+ + | Reason | Onset | Comments | | | Date | | + +--------+ + | Headache | 11/13/ | | | | 2005 | | + +--------+ + Encounter Details +--------+ + + + + | Date | Type | Department | Care Team | Description | +--------+ + + + + | 11/11/ | Telephone | [facility] | Bryan Wilson | Headache | | 2005 | | Mcintosh/Ophthalmol | MD Jordin | | | | | leon at [facility] [address] | | | | | [address] [facility] | | | | | | Health and Healing, | | | | | | Building | | | | | | Floor [place], [place] | | | | | | [address] | | | | | | [phone] | | | +--------+ + + + [...] this encounter Miscellaneous Notes Telephone Encounter - Steve Rushing, Kiki H - 11/11/2006 9:09 PM PSTPt called b/c of headach es, worsening x 3days. Has h/o pseudotumor cerebri with shunt placed 05/03, removed 06/02. W as seen by Dr. Marsh, found to have papilledema, and was placed on Diamox. She has missed a couple of doses, but otherwise compliant. She was on hydrocodone/APAP, but d/c'd Tuesday b/ c of "taking too much Tylenol". Her headache is on the top of her head, pulsating, 8/10 whe n it is at its worst, comes and goes. No dizziness, no diplopia, no tinnitis. She has tunn el vision OD a few times per day, same as has been described to Dr. Marsh, where her periphe ral vision becomes dim for 30 secs then returns. Pt says that she cannot find a ride to a [employer] augor tonight, and that she cannot make it to [place] because she lives too far away, but she wanted to schedule an appointment with Dr. Marsh. I discussed the severity of her problems with her, and the concerning symptoms of visual obscurations, but she did not want to seek e mergent medical care. She said she would try to find a ride tomorrow, and agreed to call me to let me know if she found a ride. Pt was instructed to take 2 Diamox tonight (1000mg) an d call in the morning. She was warned of concerning symptoms and advised to seek emergent m edical treatment if necessary. This case was discussed and plan formulated with Dr. Donohue. BRYAN WILSON MD Ophthalmology Resident Physician [facility] documented in this en counter Plan of Treatment Not on filedocumented as of this encounter Visit Diagnoses Not on filedocumented in this encounter
--- OUTSIDE RECORDS SUMMARY | ~2020-08-03 | XMS | Encounter Summary ---
Demographics + + + | Address | [address] | | | [place] [address] | + + + | Home Phone | | + + + | Preferred Language | Unknown | + + + | Marital Status | | + + + | Buddhism Affiliation | NON | + + + | Race | or | + + + | Ethnic Group | Not or | + + + Author + + + | Author | [facility] | + + + | Organization | [facility] [employer] [facility] | + + + | Address | Unknown | + + + | Phone | Unavailable | + + + Support + + +---------+ + | Name | Relationship | Address | Phone | + + +---------+ + | Ruby Au | ECON | Unknown | | + + +---------+ + Care Team Providers + +------+ + | Care Network Intern Name | Role | Phone | + [...] | | | | Sky Maloney | [facility], | | | | | | [place], [place] | 10th Floor | | | | | | [address] | [place], [place] | | | | | | Phone: | [address] | | | | | | [phone] | Phone: | | | | | | Fax: | [phone] | | | | | | [phone] | Fax: | | | | | | | [phone] | +--------+--------+ + + + + Reason for Visit + + + | Reason | Comments | + + + | 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 | | + + + Encounter Details +--------+ + + + + | Date | Type | Department | Care Team | Description | +--------+ + + + + | 03/13/ | Emergency | [facility] Emergency | Abby Whyte MD | | | 2012 | | Department [address] | | | | [address] | [facility] | | | | | [facility] | [place], [place] | | | | | [place], [place] | [address] | | | | | [address] | [phone] | | | | | [phone] | | | | | | | [...] the irma aviva. Thanks for coming to [facility] today. Your head CT was negative for any new findings. The neurosurgeon did not think there was a malfunction in your shunt. The eyewear manufacturing supervisor recommends you taking Diomox again and follow up in 1 week at [facility]. Please follow up with your doctor. Rest, [...] MONSIVAIS MD Attending Physician: Ru Roque MD Advertising Copywriter Attending: Dewey Goodwin MD CC: history of [...] - no pronator drift Bi [place] Kitchenwhere Maker WE HI HF KE DF PF EHL [...] -No acute [place] [address] PGY-[address] Goodwin, attending neurosurgeon police officer crime prevention, who agrees with the above. Hay Powell [...] done Previously followed by Dr. Currie at [facility] (last seen 02/2007) Previously on Diamox [...] sheath fenestra tion (by Dr. Celis at [facility] in 2006) and s/p multiple lumboperitoneal [...] convergence i nsufficiency as outpatient -Follow-up with [facility] (Comprehensive Division at [facility]) in 1-2 weeks Patient t o call [phone] for appointment. Call or return to Emergency Department sooner if sympto ms worsen. Peña Martin Resident PGY-2 [facility] 03/13/2013 documented in this encounter ED Notes [...] PLASMA (LAB) 0.83 0.60-1.10 mg/dL EGFR - ALGERIAN >60 >60 mL/min EGFR NON -ALGERIAN >60 >60 mL/min SODIUM, PLASMA (LAB) 141 [...] Pt6 is being signed out to the [facility] ED t jelani. ED Medication Administration from 03/13/2013 1142 to 03/13/20134 Date/Time Order Dose Route Action 03/13/2013 7443 NaCl 0.9 % IV 1,000 mL Intravenous [...] lumbar shunt placed 2008 Drove here from [place], usually seen in [place] One week of "40 pound weight gain" [...] not recommend LP. Ru Roque MD, FACEP Clinical Research Specialist, Emergency Medicine Ru Roque MD, FACEP Clinical Research Specialist, Emergency Medicine u Roque MD - 03/13/2013 5:04 PM PDT 5:04 PM, AMOL ALTMAN MD, Resident Note Sign out from Dr. Lopez and Dr. Whyte at 5:04 PM. Situation: In summary, Annabella Au is a 37 y.o. female who presented with headache for 4 days w/ hx of CONSULTING IT ARCHITECT shunt. Background: Significant Past medical History: Lumbar [...] PLASMA (LAB) 0.83 0.60-1.10 mg/dL EGFR - ALGERIAN >60 >60 mL/min EGFR NON -ALGERIAN >60 >60 mL/min SODIUM, PLASMA (LAB) 141 [...] cost clinic Return precautions given F/u with [facility] in 1-2 weeks Diomox 500mg BID Oxycodone Amol Altman MD R2 Emergency Medicine Resident gapito, Amol - 013 5:04 PM PDT 5:04 PM, AMOL ALTMAN MD, Resident Note Sign out from Dr. Lopez and Dr. Whyte at 5:04 PM. Situation: In summary, Annabella Au is a 37 y.o. female who presented with headache for 4 days w/ hx of CONSULTING IT ARCHITECT shunt. Background: Significant Past medical History: Lumbar [...] PLASMA (LAB) 0.83 0.60-1.10 mg/dL EGFR - ALGERIAN >60 >60 mL/min EGFR NON -ALGERIAN >60 >60 mL/min SODIUM, PLASMA (LAB) 141 [...] cost clinic Return precautions given F/u with [facility] in 1-2 weeks Diomox 500mg BID Oxycodone Amol Altman MD R2 Emergency Medicine Resident Marcelo Varma R N - 03/13/2013 12:00 PM PDTPatient c/o SOB, CP and weight gain of 41 lbs over 1 week per pat iedanish. Halle Posey EMT - 03/13/2013 11:52 AM PDTPt was scoped for [facility] on Tuesday. Electronically josiah d by SAURABH Anderson at 03/13/2013 11:52 AM Monica Posey EMT - 03/13/2013 11: 45 AM PDTPt CO head pain, vision disturbance, nausea, vomiting. Pt has a CONSULTING IT ARCHITECT shunt. Pt states referring hospital says it [...] reports she has CT last Tuesday at [facility], states " They said my shunt was dislodged". Pt is a/ox4.Electronically signed by Elisabeth Ortiz RN at 11:44 AM Elisabeth Bella RN - 03/13/2013 11:43 AM PDTPossible CONSULTING IT ARCHITECT shunt malfunction, CAPONE x4 days. documented in this encounter Miscellaneous Notes Scan - Other, Faculty - 03/15/2013 9:40 AM PDTElectronically signed by Faculty Other at 9:40 AM PDTED Teaching Notes - Abby Whyte MD - 03/13/2013 8:46 PM PDTNo [facility] note - see shared resident/faculty Provider [...] TOTH | [address] | [place], [place] | | | NACHO POINT OF CARE | [address] | [address] | | | TESTS | | | [...] [facility] | [address] | [place] [address] | | | SERVICES, CORE | PARK [...] | | | | | CHRISTIANO TORRES ([id number]) | | | | | | on 03/14/2013 10:35:55 AM | | | | + + + + + + + + | Specimen | + + | | + + + + + | Narrative | Performed At | + + + | Please click | [facility] DEPT OF | | on view image for the detailed interpretation from Ze[facility] results. | CARDIOLOGY | + + + + + + + + | Performing | Address | City/State/Zipcode | Phone Number | | Organization | | | | + + + + + | [facility] DEPT OF | [address] | [place], [place] | | | CARDIOLOGY | [address] | [address] | | + + + + + [...] - [facility] | [address] | [place], [place] | | | NACHO POINT OF CARE | [facility] | [address] | | | TESTS | | | [...] + + + + + | [facility] | [address] | [place] [address] | | | SERVICES, CORE | PARK [...] | + + + + + | [facility] | [address] [facility] | [place] [address] | | | SERVICES, CORE | SKY [...] | | | LABORATORY | | | ALGERIAN | | | SERVICES, | | | [...] + + + + + | [facility] | [address] | [place] [address] | | | SERVICES, CORE | PARK [...] | + + + + + | [facility] | [address] | [place] [address] | | | SERVICES, CORE | PARK [...] + | [place] - AIRPORT - | [address] | [place] [address] | | | [place] | | | [...] | + + + + + | [facility] | [address] | [place] [address] | | | SERVICES, CORE | SKY [...]
--- OUTSIDE RECORDS SUMMARY | ~2020-08-03 | XMS | Encounter Summary ---
Demographics + + + | Address | [address] | | | [place] [address] | + + + | Home Phone | | + + + | Preferred Language | Unknown | + + + | Marital Status | | + + + | Tenriism Affiliation | NON | + + + | Race | or | + + + | Ethnic Group | Not or | + + + Author + + + | Author | [facility] [employer] [facility] | + + + | Organization | [facility] [employer] [facility] | + + + | Address | Unknown | + + + | Phone | Unavailable | + + + Support + + +---------+ + | Name | Relationship | Address | Phone | + + +---------+ + | Ruby Au | ECON | Unknown | | + + +---------+ + Care Team Providers + +------+ + | Care Hvac Sheet Metal Installer Name | Role | Phone | [...] | | | | | [facility] [place] for | [address] | | | | | Health and Healing, | [place], [place] | | | | | | [address] | | | | | Floor [place], [place] | | | | | | [address] | | | | | | [phone] | | | +--------+ + + + [...]
--- OUTSIDE RECORDS SUMMARY | ~2020-08-03 | XMS | Encounter Summary ---
Demographics + + + | Address | [address] | | | [place] [address] | + + + | Home Phone [...] Author | [facility] [employer] [facility] | + + + | Organization | [facility] [employer] [facility] | + + + | Address | Unknown | + + + | Phone | Unavailable | + + + Support + + +---------+ + | Name | Relationship | Address | Phone | + + +---------+ + | Ruby Au | ECON | Unknown | | + + +---------+ + Care Team Providers + +------+ + | Care Manager Medical Name | Role | Phone | + [...] incision site) | | | | Ave [facility] | [place], [place] | | | | | Health and Healing, | [address] | | | | | | [phone] | | | | | floor [place], [place] | | | | | | [address] | | | | | | [phone] | | | +--------+ + + + [...]
--- OUTSIDE RECORDS SUMMARY | ~2020-08-03 | XMS | Encounter Summary ---
Demographics + + + | Address | [address] | | | [place] [address] | + + + | Home Phone | | + + + | Preferred Language | Unknown | + + + | Marital Status | | + + + | Temple Affiliation | Unknown | + + + | Race | or | + + + | Ethnic Group | Not or | + + + Author + + + | Author | [facility] | | | and [place] | + + + | Organization | [facility] | | [...] Team Providers + +------+ + | Care Automobile Racer Name | Role | Phone | + +------+ + PCP | Unavailable | + +------+ + Encounter Details +--------+ + + + + | Date | Type | Department | Care Team | Description | +--------+ + + + + | 04/21/ | Hospital | [facility] | | | | 1995 | Encounter | MED CTR EMERGENCY | | | | | | CENTER [address] | | | | | | [place] | | | | | | [address] | | | | | | [phone] | | | +--------+ + + + [...]
--- OUTSIDE RECORDS SUMMARY | ~2020-08-03 | XMS | Encounter Summary ---
Demographics + + + | Address | [address] | | | [place] [address] | + + + | Home Phone [...] | Author | [facility] | + + + | Organization | [facility] [employer] [facility] | + + + | Address | Unknown | + + + | Phone | Unavailable | + + + Support + + +---------+ + | Name | Relationship | Address | Phone | + + +---------+ + | Ruby Au | ECON | Unknown | | + + +---------+ + Care Team Providers + +------+ + | Care Roll Skinner Name | Role | Phone | + [...] | | | REFERRAL TO | | [place], [place] | | | | | NEUROINTERVE | | [address] | | | | | NTIONAL | | Phone: | | | | | RADIOLOGY | | [phone] | | | | | PRACTICE | | Fax: | | | | | | | [phone] | +--------+--------+ + + + + Reason [...] Dx) | | | | Mailcode:[id number] | [place], [place] | | | | | Outpatient Clinic | [address] | | | | | Building [place], | [phone] | | | | | [place] [address] | | | | | | [phone] | | | +--------+---------+ + + + [...] resident s note. CASIMIRO PAYTON MD NEUROSURGERY [address] [place] [address] [place] [address] hPascual hanley Bri - 12:00 PM PDT [...] spots" and "tunnel vision." Last saw an payer specialist in [facility] 2 months ago. Reportedl y, this showed that her OS vision was worse - no reports available to me at this time. Was a lso admitted to the [facility] for CAPONE about a month ago. [...] Patient was also given a prescription for [place] for CAPONE until she establishs care with [...]
--- OUTSIDE RECORDS SUMMARY | ~2020-08-03 | XMS | Encounter Summary ---
Demographics + + + | Address | [address] | | | [place] [address] | + + + | Home Phone [...] Author | [facility] [employer] [facility] | + + + | Organization | [facility] [employer] [facility] | + + + | Address | Unknown | + + + | Phone | Unavailable | + + + Support + + +---------+ + | Name | Relationship | Address | Phone | + + +---------+ + | Ruby Au | ECON | Unknown | | + + +---------+ + Care Team Providers + +------+ + | Care Director Of Home Health Services Name | Role | Phone | + +------+ + | Dennis Maddox | PCP | | + +------+ + Encounter Details +--------+ + + + + | Date | Type | Department | Care Team | Description | +--------+ + + + + | 07/10/ | Telephone | Neurosurgery at | Sam Pedroza MD | | | 2012 | | [facility] [address] | [address] | | | | | Ave [facility] | [place], [place] | | | | | Health and Healing, | [address] | | | | | Building [address]th | [phone] | | | | | floor [place], [place] | | | | | | [address] | | | | | | [phone] | | | +--------+ + + + [...] this encounter Miscellaneous Notes Telephone Encounter - Monica Pizarro LPN - 07/10/2013 2:19 PM PDTReceived call from kenia mccabe stating her shunt is dislodged and she hasn't had a problem until recently. A little t o the side of the scar "severe pain shock there." Patient reports severe headache for the la st two days with nausea, fever yesterday. Jacques Clark present to local ED for evaluation, noelia peng is agreeable. do cumented in this encounter Plan of Treatment Not on filedocumented as of this encounter Visit Diagnoses Not on filedocumented in this encounter
--- OUTSIDE RECORDS SUMMARY | ~2020-08-03 | XMS | Encounter Summary ---
Demographics + + + | Address | [address] | | | [place] [address] | + + + | Home Phone [...] + + | Author | [facility] | + + + | Organization | [facility] [employer] [facility] | + [...] Team Providers + +------+ + | Care Overhead Line Worker Name | Role | Phone | [...] Cerebri | | 2006 | Visit | [place] | | (Primary Dx) | | | | Neuro-Ophthalmology | | | | | | [address] [facility] | | | | | | Mailcode: CE | | | | | | [place] [address] | | | | | | [phone] | | | +--------+---------+ + + + [...] Referred by: CASIMIRO PAYTON MD [address] [place] [address] Symptoms: She has not been taking her [...] Brad Currie MD Neuro-Ophthalmology and Cerebrovascular Disease Photographic Double of Ophthalmology, Neurology, and Neurosurgery documented in this encounter Plan of Treatment + + +--------+ + + | Name | Type | Priori | Associated Diagnoses | Order Schedule | | | | ty | | | + + +--------+ + + | NE VISUAL FIELD | Procedures | Routin | Pseudotumor | Ordered: 12/19/2006 | | EXAM,EXTENDED | | e | Cerebri | | + + +--------+ + + documented as of this encounter Visit Diagnoses + + | Diagnosis | + + | Pseudotumor cerebri - Primary Benign intracranial hypertension | + + documented in this encounter"
--- OUTSIDE RECORDS SUMMARY | ~2020-08-03 | XMS | Encounter Summary ---
Demographics + + + | Address | [address] | | | [place] [address] | + + + | Home Phone | | + + + | Preferred Language | Unknown | + + + | Marital Status | | + + + | Oriental Orthodox Affiliation | NON | + + + | Race | or | + + + | Ethnic Group | Not or | + + + Author + + + | Author | [facility] | + + + | Organization | [facility] | + + + | Address | Unknown | + + + | Phone | Unavailable | + + + Support + + +---------+ + | Name | Relationship | Address | Phone | + + +---------+ + | Ruby Au | ECON | Unknown | | + + +---------+ + Care Team Providers + +------+ + | Care Research Geneticist Name | Role | Phone | + +------+ + | Pedro Luis Sams MD | PCP | | + +------+ + Reason for Visit + +--------+ + | Reason | Onset | Comments | | | Date | | + +--------+ + | Possible Shunt | 03/06/ | | | [place] | 2012 | | + +--------+ + Encounter Details +--------+ + + + + | Date | Type | Department | Care Team | Description | +--------+ + + + + | 03/06/ | Telephone | Neurosurgery at | aSm Pedroza MD | Possible Shunt | | 2012 | | [facility] [address] | [address] | [place] | | | | [address] [place] for | [place], [place] | | | | | Health and Healing, | [address] | | | | | [facility] | [phone] | | | | | floor [place], [place] | | | | | | [address] | | | | | | [phone] | | | +--------+ + + + [...] Telephone Encounter - Lucina Chavez PA - 03/09/2013 10:27 AM PDTRouting message to re sidedanish network operations analyst, Dr Muna Holland elephone Encounter - Monica Pizarro LPN - 03/09/2013 10:22 AM PDTReceived vm from community health nurse with [facility] notifying Dr. Pedroza s team that they are transporting her this morning after 1030 to [facility] ED. [phone] is Alexsander gamble, the nurse's phone number. 1 0:23 AM PDTTelephone Encounter - Amber Hopkins PA-C - 03/06/2013 1:57 PM PDTPer admin staff: Patient has OHP & must be seen in [facility]. Kasia can see her there or Neida can catarina e the case per protocol Will try to schedule pt in chief's clinic with either Dr. Carrasquillo or Dr. 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 Last seen in clinic with Dr. Pedroza on 09/17/2011: Plan at that time: "Pseudotumor with nonfunctioning LPS. We discuss with patient her symptoms, diagnosis and t reatment options. We offer her to remove the LPS and patient will think about it . She will give a higher dose of diamox a try. If she doesn't improve, we will contact the insurance co [facility] again see whether we will get approval for stent placement" Has been followed by Dr. Osorio/Dr. Mcgrath at [facility]. She has had several no-show appts with Dr. Mcgrath in late 2011. Dr. Osorio's last documented phone encounter 09/2011: "I received a call from the patient today. She missed her scheduled appointment here at [facility]. The patient is currently unable to travel to [place] since she is caring for her mother who is ill. The patient has an appt scheduled with an studio operator in her local area nex t week. I encouraged her to keep this appointment as she needs ongoing follow up for her pse udotumor which if left untreated, can result in permanent visual loss. The patient has self dc'ed her oral diamox due to side effect intolerance including intract able numbness and tingling in her extremities. Her vision is stable at this time. She report s being seen by the neurosurgery department who offered to remove/repair her current shunt b ut the patient cannot do that procedure until the spring due to timing and financial constra ints. I encouraged her to see the financial counselor at [facility]." Can see pt in clinic for eval of LPS (for possible explant) and possible stent placement. Pt should also continue FU with Dr. Osorio or Dr. Mcgrath for a thorough vision exam. Please coordinate appt with Dr. Beard/Dr. Pedroza for any Tuesday, at pts convenience. Also n eeds financial analyst accountant/insurance eval if stent and LPS explant will be pursued, will discuss wit h office staff. elephone Encounter - A Monica hernández LPN - 03/06/2013 10:04 AM PDTPatient called clinic, she states that her sy mptoms from her 02/19/13 call continue. She states she thinks she is retaining fluid. Her hea dache causes a whooshing sound in her ears, and a level 8, when she lays down flat there is some relief. Patient states she continues to see black spots and have nausea. Patient states "would you let them know that I want the shunt removed, I don't want it be a question anymore." Patient goes on to state that she is frustrated with the shunt and "just wants to get it out." Patient is willing to come into see Dr. Pedroza's team at [facility]. documented in this encounter Plan of Treatment Not on filedocumented as of this encounter Visit Diagnoses Not on filedocumented in this encounter
--- OUTSIDE RECORDS SUMMARY | ~2020-08-03 | XMS | Encounter Summary ---
Demographics + + + | Address | [address] | | | [place] [address] | + + + | Home Phone [...] Team Providers + +------+ + | Care Collar Cutter Name | Role | Phone | + +------+ + PCP | Unavailable | + +------+ + Encounter Details +--------+ + + + + | Date | Type | Department | Care Team | Description | +--------+ + + + + | 08/10/ | Hospital | [facility] | | | | 1990 | Encounter | MED CTR EMERGENCY | | | | | | CENTER [address] | | | | | | [place] | | | | | | [address] | | | | | | [phone] | | | +--------+ + + + [...]
--- OUTSIDE RECORDS SUMMARY | ~2020-08-03 | XMS | Encounter Summary ---
Demographics + + + | Address | [address] | | | [place] [address] | + + + | Home Phone | | + + + | Preferred Language | Unknown | + + + | Marital Status | | + + + | Jainism Affiliation | NON | + + + | Race | or | + + + | Ethnic Group | Not or | + + + Author + + + | Author | [facility] [employer] [facility] | + + + | Organization | [facility] [employer] [facility] [...] Providers + +------+ + | Care Pipe Line Maintenance Supervisor Name | Role | Phone | [...] | | kiran [facility] | [facility] | | | | | Health and Healing, | Rd [place], [place] | | | | | | [address] | | | | | floor [place], [place] | [phone] | | | | | [address] | | | | | | [phone] | | | +--------+ + + + [...]
--- OUTSIDE RECORDS SUMMARY | ~2020-08-03 | XMS | Encounter Summary ---
Demographics + + + | Address | [address] | | | [place] [address] | + + + | Home Phone [...] Organization | [facility] [...] Team Providers + +------+ + | Care Geological Engineer Name | Role | Phone | + +------+ + PCP | Unavailable | + +------+ + Encounter Details +--------+ + + + + | Date | Type | Department | Care Team | Description | +--------+ + + + + | 03/29/ | Hospital | [facility] | | | | 2006 | Encounter | MED CTR XRAY [address] | | | | | | [place] | | | | | | [place] [address] | | | | | | [phone] | | | +--------+ + + + [...]
--- OUTSIDE RECORDS SUMMARY | ~2020-08-03 | XMS | Encounter Summary ---
Demographics + + + | Address | [address] | | | [place] [address] | + + + | Home Phone | | + + + | Preferred Language | Unknown | + + + | Marital Status | | + + + | Cheondoism Affiliation | Unknown | + + + [...] Providers + +------+ + | Care Band Scroll Saw Operator Name | Role | Phone | + +------+ + PCP | Unavailable | + +------+ + Encounter Details +--------+ + + + + | Date | Type | Department | Care Team | Description | +--------+ + + + + | 10/20/ | Hospital | [facility] | | | | 1999 | Encounter | MED CTR EMERGENCY | | | | | | CENTER [address] | | | | | | [place] | | | | | | [address] | | | | | | [phone] | | | +--------+ + + + [...]
--- OUTSIDE RECORDS SUMMARY | ~2020-08-03 | XMS | Encounter Summary ---
Demographics + + + | Address | [address] | | | [place] [address] | + + + | Home Phone [...] Organization | [facility] [...] Team Providers + +------+ + | Care Dance Therapist Name | Role | Phone | + +------+ + PCP | Unavailable | + +------+ + Encounter Details +--------+ + + + + | Date | Type | Department | Care Team | Description | +--------+ + + + + | 06/19/ | Hospital | [facility] | | | | 1991 | Encounter | MED CTR WOMENS | | | | | | [facility] [address] | | | | | | [place], | | | | | | [place] [address] | | | | | | [phone] | | | +--------+ + + + [...]
--- OUTSIDE RECORDS SUMMARY | ~2020-08-03 | XMS | Encounter Summary ---
Demographics + + + | Address | [address] | | | [place] [address] | + + + | Home Phone [...] Organization | [facility] [...] Providers + +------+ + | Care Materials Coordinator Name | Role | Phone | + +------+ + PCP | Unavailable | + +------+ + Encounter Details +--------+ + + + + | Date | Type | Department | Care Team | Description | +--------+ + + + + | 03/14/ | Hospital | [facility] | Pancho Gonzalez | | | 2012 | Encounter | HOSPITAL EMERGENCY | MD [place] [address] [facility] | | | | | CENTER [address] | [facility] [address] | | | | | [address] [place] [place] | [place], [place] | | | | | [address] | [id number] | | | | | [phone] | | | +--------+ + + + [...]
--- OUTSIDE RECORDS SUMMARY | ~2020-08-03 | XMS | Encounter Summary ---
Demographics + + + | Address | [address] | | | [place] [address] | + + + | Home Phone [...] + + + | Author | [facility] [employer] [facility] | + + + | Organization | [facility] [employer] [facility] | + [...] Team Providers + +------+ + | Care Cabinet Professional Name | Role | Phone | + +------+ + PCP | Unavailable | + +------+ + Encounter Details +--------+ + + + + | Date | Type | Department | Care Team | Description | +--------+ + + + + | 06/25/ | Telephone | Neurosurgery at | Steph Reyes MD | | | 2010 | | [facility] | | | | | | [facility] for | | | | | | Health and Healing, | | | | | | Building | | | | | | floor [place], [place] | | | | | | [address] | | | | | | [phone] | | | +--------+ + + + [...] this encounter Miscellaneous Notes Telephone Encounter - Steph Reyes MD - 06/25/2011 4:29 PM PDTPt had LP shunt placed in 2007. She calls with complaint of 3 days of CAPONE and whooshing sound in ears. She went to 2 EDs, one gave her pain meds and the other said they couldn't do an LP. She's been trying t o schedule an appt but was told some paperwork was needed because she hasn't been seen since 2007. She calls asking for help with CAPONE treatment. I advised her I cannot assess her head aches over the phone. I advised her she was welcome to come to our ED and our ED doctors wo uld evaluate her. She's reluctant to do this b/c she [place] far away. I told her I cannot o ffer her many other options; she understands. Steph Reyes MD PGY-2 Neurological Surgery documented in this enc ounter Plan of Treatment Not on filedocumented as of this encounter Visit Diagnoses Not on filedocumented in this encounter"
--- OUTSIDE RECORDS SUMMARY | ~2020-08-03 | XMS | Encounter Summary ---
Demographics + + + | Address | [address] | | | [place] [address] | + + + | Home Phone | | + + + | Preferred Language | Unknown | + + + | Marital Status | | + + + | Worship Affiliation | NON | + + + | Race | or | + + + | Ethnic Group | Not or | + + + Author + + + | Author | [facility] [employer] [facility] | + + + | Organization | [facility] [employer] [facility] | + + + | Address | Unknown | + + + | Phone | Unavailable | + + + Support + + +---------+ + | Name | Relationship | Address | Phone | + + +---------+ + | Ruby Au | ECON | Unknown | | + + +---------+ + Care Team Providers + +------+ + | Care Dj Instructor Name | Role | Phone | + +------+ + | Yeison Simms MD | PCP | Unavailable | + +------+ + Reason for Visit + +--------+ + | Reason | Onset | Comments | | | Date | | + +--------+ + | Headache | 09/14/ | | | | 2008 | | + +--------+ + Encounter Details +--------+ + + + + | Date | Type | Department | Care Team | Description | +--------+ + + + + | 09/14/ | Telephone | Neurosurgery [address] | Magdiel Fallon, | Headache | | 2008 | | [address] | ,PhD [address] | | | | | Rd Mailcode:OP14B | [address] | | | | | [facility] | [place], [place] | | | | | [place], [place] | [address] | | | | | [address] | [phone] | | | | | [phone] | | | +--------+ + + + [...] this encounter Miscellaneous Notes Telephone Encounter - Magdiel Fallon MD,PhD - 09/14/2009 4:12 PM PDTSpoke to patient marley rding worsening of chronic headaches. Patient states she has severe headaches, worse when s tanding, that have been evaluated in the past. She calls asking for a prescription for Norc o. 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 I advised her that narcotics are not the first line therapy for this type of h eadaches, and that she should try to remain well hydrated and try over the counter caffeine tabs. I also advised her that if these measures fail, or her headaches worsen, she should p resent to the ED either locally in [place] or here at [facility] to be evaluated for her headach es. documented in th is encounter Plan of Treatment Not on filedocumented as of this encounter Visit Diagnoses Not on filedocumented in this encounter"
--- OUTSIDE RECORDS SUMMARY | ~2020-08-03 | XMS | Encounter Summary ---
Demographics + + + | Address | [address] | | | [place] [address] | + + + | Home Phone [...] Author | [facility] [employer] [facility] | + + + | Organization | [facility] [employer] [facility] | + + + | Address | Unknown | + + + | Phone | Unavailable | + + + Support + + +---------+ + | Name | Relationship | Address | Phone | + + +---------+ + | Ruby Au | ECON | Unknown | | + + +---------+ + Care Team Providers + +------+ + | Care Interventional Neuroradiologist Name | Role | Phone | + +------+ + | Brenden Benavides MD | PCP | | + +------+ + Encounter Details +--------+ + + + + | Date | Type | Department | Care Team | Description | +--------+ + + + + | 02/22/ | Telephone | [facility] | Hay Hughes MD 0035 | | | 2006 | | [place] | [address] | | | | | Oculoplastics at | [place], [place] | | | | | [address] | [address] | | | | | [address] | [phone] | | | | | [facility] [place] | | | | | | [address] | | | | | | [place] [address] | | | | | | [phone] | | | +--------+ + + + [...] this encounter Miscellaneous Notes Telephone Encounter - Romina Corral - 02/23/2007 11:08 AM PDTSpoke to pt and commun icated instructions for using ECN gail OU BID. Pt stated that her vision was blurry for a few hours yesterday but improved and is not diminished now. Pt instructed to call right away if she has vision loss or if the discharge gets worse instead of better. elephone Encounter - Ashley Jacobo - 02/22/2007 5:17 PM PDTTc from pt c/o discharge from [facility] for past 2 days with fever in p.m.- has woken with eyes matted shut worse today-discussed possibility of conjunctivitis which ma y have to run its course-she has no local drying machine operator package yarns- she still has ECN gail, will have her try that for a few days & if not improved she will need to be seen. Tc to pt to discuss using ECN gail-no answer, will try tomorrow to reach ptElectronically si gned by Ashley Jacobo at 02/22/2007 5:17 PM PDTdocumented in this encounter Plan of Treatment Not on filedocumented as of this encounter Visit Diagnoses Not on filedocumented in this encounter"
--- OUTSIDE RECORDS SUMMARY | ~2020-08-03 | XMS | Encounter Summary ---
Demographics + + + | Address | [address] | | | [place] [address] | + + + | Home Phone [...] + + + | Author | [facility] [employer] [facility] | + + + | Organization | [facility] [employer] [facility] | + [...] Providers + +------+ + | Care Warehouse Shipper Name | Role | Phone | + [...] Cerebri | | 2006 | Visit | [place] | | (Primary Dx) | | | | Neuro-Ophthalmology | | | | | | [address] [facility] | | | | | | Mailcode: PATTI | | | | | | [place] [address] | | | | | | [phone] | | | +--------+---------+ + + + [...] Brad Currie MD Neuro-Ophthalmology and Cerebrovascular Disease Wearing Apparel Folder of Ophthalmology, Neurology, and Neurosurgery documented in this encounter Plan of Treatment + + +--------+ + + | Name | Type | Priori | Associated Diagnoses | Order Schedule | | | | ty | | | + + +--------+ + + | [place] VISUAL FIELD | Procedures | Routin | Pseudotumor | Ordered: 10/13/2006 | | EXAM,EXTENDED | | e | Cerebri | | + + +--------+ + + documented as of this encounter Visit Diagnoses + + | Diagnosis | + + | Pseudotumor cerebri - Primary Benign intracranial hypertension | + + documented in this encounter"
--- OUTSIDE RECORDS SUMMARY | ~2020-08-03 | XMS | Encounter Summary ---
Demographics + + + | Address | [address] | | | [place] [address] | + + + | Home Phone [...] Organization | [facility] [...] Team Providers + +------+ + | Care Welcome Wagon Host/Hostess Name | Role | Phone | + +------+ + PCP | Unavailable | + +------+ + Encounter Details +--------+ + + + + | Date | Type | Department | Care Team | Description | +--------+ + + + + | 07/21/ | Hospital | [facility] | | | | 1990 | Encounter | MED CTR EMERGENCY | | | | | | CENTER [address] | | | | | | [place] | | | | | | [address] | | | | | | [phone] | | | +--------+ + + + [...]
--- OUTSIDE RECORDS SUMMARY | ~2020-08-03 | XMS | Encounter Summary ---
Demographics + + + | Address | [address] | | | [place] [address] | + + + | Home Phone [...] + + + | Author | [facility] [employer] [facility] | + + + | Organization | [facility] [employer] [facility] | + + + | Address | Unknown | + + + | Phone | Unavailable | + + + Support + + +---------+ + | Name | Relationship | Address | Phone | + + +---------+ + | Ruby Au | ECON | Unknown | | + + +---------+ + Care Team Providers + +------+ + | Care Applied Behavior Science Specialist Name | Role | Phone | [...] | Visit | Medicine Clinic at | MANAGER BILLING [address] [facility] | Pre-Operative | | | | [facility] 4th Floor [address] [facility] [address] | Examination (Primary | | | | [address] | [place], [place] | Dx); Pseudotumor | | | | Mailcode: CH4S | [phone] | Cerebri; Encounter | | | | [facility] | [phone] | for Long-Term | | | | and Healing, | | (Current) Use of | | | | Building 1,4th Floor | | Anticoagulants | | | | [place], [place] | | | | | | [address] | | | | | | [phone] | | | +--------+---------+ + + + [...] [facility] [address] [facility] [facility],4th [place] [phone] documented in this encou nter Plan of Treatment + + +--------+ + + | Name | Type | Priori | Associated Diagnoses | Order Schedule | | | | ty | | | + + +--------+ + + | GA COLLECTION VENOUS | Procedures | Routin | [...] DEPARTMENT OF | [address] | [place] [address] | | | PATHOLOGY | [address] | | | + + + + + | [facility] DEPARTMENT OF | [address] [facility] | [place] [address] | | | PATHOLOGY | [address] [...] 29.5Comment: | 26.0 - 36.0 | [facility] | | | | APTT Therapeutic Range [...] | + + + + + | [facility] | [address] [place] [address] | [place] [address] | | | PATHOLOGY | [address] | | | + + + + + | [facility] | [address] [facility] | [place] [address] | | | PATHOLOGY | [address] [...] + + + + | [facility] DEPARTMENT OF | [address] | [place] [address] | | | PATHOLOGY | [address] | | | + + + + + | [facility] DEPARTMENT OF | [address] | [place] [address] | | | PATHOLOGY | [address] [...] + + + + | [facility] DEPARTMENT OF | [address] [facility] | [place] [address] | | | PATHOLOGY | [address] | | | + + + + + | [facility] DEPARTMENT OF | [address] [facility] | [place] [address] | | | PATHOLOGY | [address] [...] Performed At | + + + | [id number] Estimated GFR > 60 mL/min/1.73 sq m if non- | [facility] | | [place] [id number] Estimated GFR > 60 mL/min/1.73 sq m if | DEPARTMENT OF | | [place] GFR is estimated using the MDRD equation [...] | + + + + + | [facility] | [address] | [place] [address] | | | PATHOLOGY | [address] | | | + + + + + | [facility] DEPARTMENT OF | [address] | [place] [address] | | | PATHOLOGY | [address] [...] + + + + | [facility] DEPARTMENT | [address] [place] [address] | [place] [address] | | | PATHOLOGY | [address] | | | + + + + + | [facility] DEPARTMENT OF | [facility] | [place] [address] | | | PATHOLOGY | [address] | | | + + + + + documented in this encounter Visit Diagnoses + + | Diagnosis | + + | Other specified pre-operative examination - Primary | + + | Pseudotumor cerebri Benign intracranial hypertension | + + | local area network administrator (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
--- OUTSIDE RECORDS SUMMARY | ~2020-08-03 | XMS | Encounter Summary ---
Demographics + + + | Address | [address] | | | [place] [address] | + + + | Home Phone [...] + | Author | [facility] | + + + | Organization | [facility] [employer] [facility] | + + + | Address | Unknown | + + + | Phone | Unavailable | + + + Support + + +---------+ + | Name | Relationship | Address | Phone | + + +---------+ + | Ruby Au | ECON | Unknown | | + + +---------+ + Care Team Providers + +------+ + | Care Hairspring Ii Inspector Name | Role | Phone | + +------+ + | Pedro Luis Sams MD | PCP | | + +------+ + Encounter Details +--------+ + + + + | Date | Type | Department | Care Team | Description | +--------+ + + + + | 10/19/ | Telephone | [facility] | Funmilayo Osorio MD | | | 2010 | | [place]hthalmol | [address] | | | | | leon at [facility] [address] | [place], [place] | | | | | [address] [facility] | [address] | | | | | Health and Healing, | [phone] | | | | | | | | | | | Floor [place], [place] | | | | | | [address] | | | | | | [phone] | | | +--------+ + + + [...] this encounter Miscellaneous Notes Telephone Encounter - Funmilayo Osorio MD - 10/19/2011 1:10 PM PSTOphthalmology Update I received a call from the patient today. She missed her scheduled appointment here at [facility]. The patient is currently unable to travel to [place] since she is caring for her mother who is ill. The patient has an appt scheduled with an viner operator in her local area next week. I encouraged her to keep this appointment as she needs ongoing follow up for her pseu dotumor which if left untreated, can result in [...] her to see the financial counselor at [facility]. In the mean time the patient agreed to let me know about any changes in her vision or worse nereida headaches. She was told to go to the ER if necessary. Funmilayo Osorio MD Gis Manager [facility] [place] documented in this encou nter Plan of Treatment Not on filedocumented as of this encounter Visit Diagnoses Not on filedocumented in this encounter"
--- OUTSIDE RECORDS SUMMARY | ~2020-08-03 | XMS | Encounter Summary ---
Demographics + + + | Address | [address] | | | [place] [address] | + + + | Home Phone [...] + + | Organization | [facility] | | [...] Providers + +------+ + | Care Field Mechanic/Site Lead Name | Role | Phone | + +------+ + PCP | Unavailable | + +------+ + Encounter Details +--------+ + + + + | Date | Type | Department | Care Team | Description | +--------+ + + + + | 10/29/ | Hospital | [facility] | | | | 1991 | Encounter | MED CTR EMERGENCY | | | | | | CENTER [address] | | | | | | [place] | | | | | | [address] | | | | | | [phone] | | | +--------+ + + + [...]
--- OUTSIDE RECORDS SUMMARY | ~2020-08-03 | XMS | Encounter Summary ---
Demographics + + + | Address | [address] | | | [place] [address] | + + + | Home Phone [...] + + | Author | [facility] | + + + | Organization | [facility] [employer] [facility] [...] Team Providers + +------+ + | Care Newspaper Vendor Name | Role | Phone | + +------+ + | Yeison Simms MD | PCP | Unavailable | + +------+ + Reason for Visit + +--------+ + | Reason | Onset | Comments | | | Date | | + +--------+ + | Letter From | 05/09/ | | | Specialist | 2008 | | + +--------+ + Encounter Details +--------+ + + + + | Date | Type | Department | Care Team | Description | +--------+ + + + + | 05/09/ | Telephone | Neurosurgery at | Sam Pedroza MD | Letter From | | 2007 | | [place] [facility] | [address] | Specialist | | | | and Healing [address] | [place], [place] | | | | | [address] [facility] | [address] | | | | | Health and Healing, | [phone] | | | | | | | | | | | Floor [place], [place] | | | | | | [address] | | | | | | [phone] | | | +--------+ + + + [...] this encounter Miscellaneous Notes Telephone Encounter - Delma Cadet - 05/10/2008 2:06 PM PDTFaxed letter to Lissa tronically signed by Delma Cadet at 05/10/2008 2:06 PM PDTTelephone Encounter - St sonny Nice - 05/10/2008 12:17 PM PDTLRT in EPIC.Electronically signed by J Carlos Nice at 008 12:17 PM PDTTelephone Encounter - Delma Cadet - 05/09/2008 9:34 AM PDTPt called to yuriy arambula a letter wrote to her employer that she had a cerbral angiogram on 05/07/08. Her Employer is [employer]. Please fax letter to: Michael Ssmdbwydgwzhvl signed by Delma Cadet at 05/09/2008 9:34 AM PDTTelephone Encounter - David Frausto - 05/09/2008 9:23 AM PDTOpened in error documented in this encounter Plan of Treatment Not on filedocumented as of this encounter Visit Diagnoses Not on filedocumented in this encounter"
--- OUTSIDE RECORDS SUMMARY | ~2020-08-03 | XMS | Encounter Summary ---
Demographics + + + | Address | [address] | | | [place] [address] | + + + | Home Phone [...] + | Author | [facility] | + + + | Organization | [facility] [employer] [facility] | + + + | Address | Unknown | + + + | Phone | Unavailable | + + + Support + + +---------+ + | Name | Relationship | Address | Phone | + + +---------+ + | Ruby Au | ECON | Unknown | | + + +---------+ + Care Team Providers + +------+ + | Care Invoice Machine Operator Name | Role | Phone [...] Dx) | | | | [facility] | [place], [place] | | | | | Health and Healing, | [address] | | | | | Building [address], [address]th | [phone] | | | | | floor [place], [place] | | | | | | [address] | | | | | | [phone] | | | +--------+---------+ + + + [...]
--- OUTSIDE RECORDS SUMMARY | ~2020-08-03 | XMS | Encounter Summary ---
Demographics + + + | Address | [address] | | | [place] [address] | + + + | Home Phone [...] + + | Author | [facility] | + + + | Organization | [facility] [employer] [facility] | + + + | Address | Unknown | + + + | Phone | Unavailable | + + + Support + + +---------+ + | Name | Relationship | Address | Phone | + + +---------+ + | Ruby Au | ECON | Unknown | | + + +---------+ + Care Team Providers + +------+ + | Care Transition Coach Name | Role | Phone | + [...] | | | Ave Center for | [place], [place] | | | | | Health and Healing, | [address] | | | | | Building | [phone] | | | | | floor [place], [place] | | | | | | [address] | | | | | | [phone] | | | +--------+ + + + [...]
--- OUTSIDE RECORDS SUMMARY | ~2020-08-03 | XMS | Encounter Summary ---
Demographics + + + | Address | [address] | | | [place] [address] | + + + | Home Phone [...] + + | Author | [facility] [employer] [facility] | + + + | Organization | [facility] [employer] [facility] | + + + | Address | Unknown | + + + | Phone | Unavailable | + + + Support + + +---------+ + | Name | Relationship | Address | Phone | + + +---------+ + | Ruby Au | ECON | Unknown | | + + +---------+ + Care Team Providers + +------+ + | Care Conference Manager Name | Role | Phone | [...] | | Ophthalmology | | Non-[facility] | [place], | | | | | | Epic Dept | Graciela Guardado MD | | | | | | | [address] | | | | | | | Ave | | | | | | | [place], [place] | | | | | | | [address] | | | | | | | Phone: | | | | | | | [phone] | | | | | | | Fax: | | | | | | | [phone] | +--------+--------+ + + + + Encounter Details +--------+---------+ + + + | Date | Type | Department | Care Team | Description | +--------+---------+ + + + | 03/26/ | Office | [facility] | Mo Hood | Pseudotumor cerebri | | 2012 | Visit | [place]/[facility]hthalmol Leif Amador MD | (Primary Dx); | | | | ogy at [facility] [address] | | Depression; Type II | | | | [address] [facility] for | | or unspecified type | | | | Health and Healing, | | diabetes mellitus | | | | Building | | without mention of | | | | Floor [place], [place] | | complication, not | | | | [address] | | stated as | | | | [phone] | | uncontrolled; PTSD | | | [...] HPI: 37 y.o. year old female from [place] : Patient presents with: IIH - Idiopathic [...] because they live 4 hours away in [facility]. Tobacco use: reports that she has [...] Right Left Disc 1+ Optic disc edema, +FINE WIRE DRAWER 2+ Optic disc edema, RNFL whitening at the superonasal borde r of the disc. There is spontaneous pulsing of the entire disc head with heart beat. C/D Ratio 0.1 0.1 Macula Normal Normal Vessels Engorged. tortuous Engorged. tortuous Periphery Normal Normal Neuro/Psych Oriented x3: Yes Mood/Affect: Normal See [facility] Ophthalmology Exam Module for additional exam information [...] Dr. Lux. Mo Hood MD Resident Physician [facility] [place], PGY-2 [facility] Physician: Mo Hood MD, 03/26/2013 documented in [...]
--- OUTSIDE RECORDS SUMMARY | ~2020-08-03 | XMS | Encounter Summary ---
Demographics + + + | Address | [address] | | | [place] [address] | + + + | Home Phone [...] Team Providers + +------+ + | Care Egg Buyer Name | Role | Phone | + +------+ + PCP | Unavailable | + +------+ + Encounter Details +--------+ + + + + | Date | Type | Department | Care Team | Description | +--------+ + + + + | 06/22/ | Hospital | [facility] | Yovanny Suazo, | | | 1991 | Encounter | MED CTR [facility]ENS | MD [address] | | | | | HEALTH SVCS [address] | [address] [facility] | | | | | [place], | [place] [address] | | | | | [place] [address] | [phone] | | | | | [phone] | | | +--------+ + + + [...]
--- OUTSIDE RECORDS SUMMARY | ~2020-08-03 | XMS | Encounter Summary ---
Demographics + + + | Address | [address] | | | [place] [address] | + + + | Home Phone [...] | Author | [facility] | + + + | Organization | [facility] [employer] [facility] | + [...] Providers + +------+ + | Care Lead Sql Developer Name | Role | Phone | [...] | Prescription | | 2012 | | [place]/Ophthalmol | MD Perry | | | | | leon at [facility] [address] | | | | | | [address] [facility] | | | | | | Health and Healing, | | | | | | Building | | | | | | Floor [place], [place] | | | | | | [address] | | | | | | [phone] | | | +--------+ + + + [...] [address] [place] [phone] documented in this encounter Plan of Treatment Not on filedocumented as of this encounter Visit Diagnoses Not on filedocumented in this encounter"
--- OUTSIDE RECORDS SUMMARY | ~2020-08-03 | XMS | Encounter Summary ---
Demographics + + + | Address | [address] | | | [place] [address] | + + + | Home Phone | | + + + | Preferred Language | Unknown | + + + | Marital Status | | + + + | Catholic Affiliation | Unknown | + + + | Race | or | + + + | Ethnic Group | Not or | + + + Author + + + | Author | [facility] | | | and [place] | + + + | Organization | [facility] | | | [...] Team Providers + +------+ + | Care Retort Kiln Burner Name | Role | Phone | + +------+ + PCP | Unavailable | + +------+ + Encounter Details +--------+ + + + + | Date | Type | Department | Care Team | Description | +--------+ + + + + | 06/10/ | Hospital | [facility] | | | | 1991 | Encounter | MED [facility] | | | | | | HEALTH [facility]CS [address] | | | | | | [place], | | | | | | [place] [address] | | | | | | [phone] | | | +--------+ + + + [...]
--- OUTSIDE RECORDS SUMMARY | ~2020-08-03 | XMS | Encounter Summary ---
Demographics + + + | Address | [address] | | | [place] [address] | + + + | Home Phone [...] Organization | [facility] [...] Team Providers + +------+ + | Care Powder Loader Name | Role | Phone | + +------+ + PCP | Unavailable | + +------+ + Encounter Details +--------+ + + + + | Date | Type | Department | Care Team | Description | +--------+ + + + + | 10/22/ | Hospital | [facility] | | | | 1991 - | Encounter | MED [facility] | | | | | | HEALTH [facility] [address] | | | | 11/27/ | | [place], | | | | 1991 | | [place] [address] | | | | | | [phone] | | | +--------+ + + + [...]
--- OUTSIDE RECORDS SUMMARY | ~2020-08-03 | XMS | Encounter Summary ---
Demographics + + + | Address | [address] | | | [place] [address] | + + + | Home Phone [...] [facility] | + + + | Organization | [facility] [employer] [facility] | + + + | Address | Unknown | + + + | Phone | Unavailable | + + + Support + + +---------+ + | Name | Relationship | Address | Phone | + + +---------+ + | Ruby Au | ECON | Unknown | | + + +---------+ + Care Team Providers + +------+ + | Care Double Ending Machine Operator Name | Role | Phone [...] | | | | Rd Mailcode:[id number] | [place], [place] | | | | | [facility] | [id number] | | | | | [place], [place] | | | | | | [address] | | | | | | [phone] | | | +--------+ + + + [...] it all to you. Her # is [phone]. Barb documented in this e ncounter Plan of Treatment Not on filedocumented as of this encounter Visit Diagnoses Not on filedocumented in this encounter"
--- OUTSIDE RECORDS SUMMARY | ~2020-08-03 | XMS | Encounter Summary ---
Demographics + + + | Address | [address] | | | [place] [address] | + + + | Home Phone [...] Team Providers + +------+ + | Care Store Lead Name | Role | Phone | + +------+ + PCP | Unavailable | + +------+ + Encounter Details +--------+ + + + + | Date | Type | Department | Care Team | Description | +--------+ + + + + | 04/20/ | Hospital | [facility] | | | | 1995 | Encounter | MED CTR EMERGENCY | | | | | | CENTER [address] | | | | | | [place] | | | | | | [address] | | | | | | [phone] | | | +--------+ + + + [...]
--- OUTSIDE RECORDS SUMMARY | ~2020-08-03 | XMS | Encounter Summary ---
Demographics + + + | Address | [address] | | | [place] [address] | + + + | Home Phone | | + + + | Preferred Language | Unknown | + + + | Marital Status | | + + + | Buddhism Affiliation | NON | + + + | Race | or | + + + | Ethnic Group | Not or | + + + Author + + + | Author | [facility] | + + + | Organization | [facility] [employer] [facility] | [...] Team Providers + +------+ + | Care Signal Intelligence/Electronic Warfare Name | Role | Phone | + +------+ + | Brenden Benavides MD | PCP | | + +------+ + Reason for Visit + +--------+ + | Reason | Onset | Comments | | | Date | | + +--------+ + | Eye examination | 11/30/ | | | | 2006 | | + +--------+ + Encounter Details +--------+---------+ + + + | Date | Type | Department | Care Team | Description | +--------+---------+ + + + | 11/30/ | Office | [facility] | | Pseudotumor Cerebri | | 2007 | Visit | [place] | | | | | | Photography at | | | | | | [facility] [address] | | | | | | [employer] [place] [employer] [address] | | | | | | Eye [place], 4th | | | | | | floor [place], [place] | | | | | | [address] | | | +--------+---------+ + + + [...] + documented as of this encounter Progress Jimena Mercado - 11/30/2006 3:16 PM Enoch Jt Pangjulisa was seen in the [facility] [place] Photography/Ultrasound Department today, 11/30/2006, for ultrasound OU [...]
--- OUTSIDE RECORDS SUMMARY | ~2020-08-03 | XMS | Encounter Summary ---
Demographics + + + | Address | [address] | | | [place] [address] | + + + | Home Phone [...] + + + | Author | [facility] | | | and [place] | + + + | Organization | [facility] [...] Team Providers + +------+ + | Care Guest Services Assistant Name | Role | Phone | + +------+ + PCP | Unavailable | + +------+ + Encounter Details +--------+ + + + + | Date | Type | Department | Care Team | Description | +--------+ + + + + | 04/24/ | Hospital | [facility] | | | | 2005 | Encounter | MED CTR EMERGENCY | | | | | | CENTER [address] | | | | | | [place] | | | | | | [address] | | | | | | [phone] | | | +--------+ + + + [...]
--- OUTSIDE RECORDS SUMMARY | ~2020-08-03 | XMS | Encounter Summary ---
Demographics + + + | Address | [address] | | | [place] [address] | + + + | Home Phone [...] Author | [facility] | + + + | Organization | [facility] [employer] [facility] | + [...] Providers + +------+ + | Care Business Support Coordinator Name | Role | Phone | [...] [address] | | | | | | [facility] | | | | | | [place], [place] | | | | | | [address] | | | | | | [phone] | | | +--------+ + + + [...] AM PDTdocumented in this encounter Miscellaneous Notes [facility] Cindy Polo - 03/09/2013 1:20 PM [...] her shunt is actually malfuctioning. HOLD [facility] - Macy Jacques - 03/09/2013 1:17 PM PDTPatient was supposed to be ED referral, now is being admitt ed at [facility], Dr. Cooney calling for consult, possible transfer. Paged Dr. Pedroza. El ectronically signed by Macy Jacques at 03/09/2013 1:18 PM PDTMary [facility] - Maryellen Mathew - 03/09/2013 11:[address] Veras, 37 yo f , second hand to Dr Holland from [facility], document ed in this encounter Plan of Treatment Not on filedocumented as of this encounter Visit Diagnoses Not on filedocumented in this encounter"
--- OUTSIDE RECORDS SUMMARY | ~2020-08-03 | XMS | Encounter Summary ---
Demographics + + + | Address | [address] | | | [place] [address] | + + + | Home Phone | | + + + | Preferred Language | Unknown | + + + | Marital Status | | + + + | Congregational Affiliation | NON | + + + | Race | or | + + + | Ethnic Group | Not or | + + + Author + + + | Author | [facility] | + + + | Organization | [facility] [employer] [facility] | + [...] Providers + +------+ + | Care Lime Kiln Worker Name | Role | Phone | [...] Refill Request | | 2007 | | [facility] | [facility] | | | | | and Healing [address] | Neurosurgery [address] | | | | | [address] [facility] | [address] | | | | | Health and Healing, | [place], [place] | | | | | Building | [address] | | | | | Floor [place], [place] | | | | | | [address] | | | | | | [phone] | | | +--------+--------+ + + + [...]
--- OUTSIDE RECORDS SUMMARY | ~2020-08-03 | XMS | Encounter Summary ---
Demographics + + + | Address | [address] | | | [place] [address] | + + + | Home Phone [...] + + | Author | [facility] | + + + | Organization | [facility] [employer] [facility] [...] Team Providers + +------+ + | Care Dice Maker Name | Role | Phone | + +------+ + | Yeison Simms MD | PCP | Unavailable | + +------+ + Reason for Visit + +--------+ + | Reason | Onset | Comments | | | Date | | + +--------+ + | Refill Request | 08/27/ | refill on [place] | | | 2008 | | + +--------+ + Encounter Details +--------+--------+ + + + | Date | Type | Department | Care Team | Description | +--------+--------+ + + + | 08/27/ | Refill | Neurosurgery at | Sam Pedroza MD | Refill Request | | 2007 | | [facility] [address] | [address] | (refill on [place]) | | | | [facility] | [place], [place] | | | | | Health and Healing, | [address] | | | | | [facility] | [phone] | | | | | floor [place], [place] | | | | | | [address] | | | | | | [phone] | | | +--------+--------+ + + + [...] Notes Telephone Encounter - Mandi Mcdonnell - 08/28/2008 10:11 AM PDTLori called RX into pharm.Elec tronically signed by Mandi Mcdonnell at 08/28/2008 10:11 AM PDTTelephone Encounter - Lna Mcdonnell - 08/27/2008 10:56 AM PDTPt is requesting a refill on [place]. Please call pt once this i s completed documented in thi s encounter Plan of Treatment Not on filedocumented as of this encounter Visit Diagnoses Not on filedocumented in this encounter"
--- OUTSIDE RECORDS SUMMARY | ~2020-08-03 | XMS | Encounter Summary ---
Demographics + + + | Address | [address] | | | [place] [address] | + + + | Home Phone [...] + | Organization | [facility] | [...] Providers + +------+ + | Care Supervisor Painting Department Name | Role | Phone | + +------+ + PCP | Unavailable | + +------+ + Encounter Details +--------+ + + + + | Date | Type | Department | Care Team | Description | +--------+ + + + + | 01/27/ | Hospital | [facility] | Marine [place] | | | 2011 - | Encounter | MED CTR EMERGENCY | DO Gaurang Drake | | | | | CENTER [address] | [place], [place] | | | 01/28/ | | [place], [place] | [address] | | | 2011 | | [address] | | | | | | [phone] | | | +--------+ + + + [...] her discharge instructions with referral to a finishing and shipping supervisor for the rash, as well as a prescription for tramadol, including a home pack of it, and some Zofran. She walked out before evaluation was complete . Therefore, please add to the discharge diagnosi s, left before evaluation complete. DICTATED BY: Vern Carlin M.D. Emergency Medicine JOB #: [id number] EXT JOB #:[id number] <Electronicall y Signed by Vern Carlin MD> 02/07/12 0734 Vern Carlin MD - 01/28/2012 10:55 PM PSTDATE: 01/28/2012 CHIEF COMPLAINT: Headache and rash. HISTORY OF PRESENT ILLNESS: Annabella is a 36-year-old female, states she has had what sounds like a michelle tricular or a DESKTOP OPERATOR shunt placed for hydrocephalus several years [...] want to go to the ER in [place], as she has had bad experience with [...] Vern Carlin M.D. Emergency Medicine JOB #: [id number] EXT JOB #:[id number] <Electronicall y Signed by Vern Carlin MD> [...] Performed At | + + + | [facility] Diagnostic Imaging Department | [facility] | | [address] [facility] | [facility] | | UNENHANCED HEAD CT, 01/28/2012, [...] COMMUNICATED TO THE ER STAFF BY [facility] RADIOLOG IST ON | | | 01/29/2012 AT 0003 HOURS. Dictated Date/Time: 01/29/2012 09:41 | | | Transcribed Date/Time: 01/29/2012 09:47 Lamp Cleaner: | | | <Electronically Signed by Ivan Smalls MD> 01/29/12 1606 | | + + + + + | Procedure Note | + + | Neal, Rad Conversion - 01/04/2014 4:51 PM Merged with [facility] | | Diagnostic Imaging Department [address] [place] [address] | | UNENHANCED HEAD CT, 01/28/2012, 2342 [...] THE ER STAFF BY | | [facility] ON 01/29/2012 AT 0003 HOURS. Dictated [...] 09:41 | |Transcribed Date/Time: 01/29/2012 09:47 | |Lamp Cleaner: | |<Electronically Signed by Ivan Smalls MD> [...]
--- OUTSIDE RECORDS SUMMARY | ~2020-08-03 | XMS | Encounter Summary ---
Demographics + + + | Address | [address] | | | [place] [address] | + + + | Home Phone [...] + + + | Author | [facility] | + + + | Organization | [facility] [...] Team Providers + +------+ + | Care Kitchen Hand Name | Role | Phone | [...] | | | [address] [facility] for | [place], [place] | | | | | Health and Healing, | [address] | | | | | [facility] | [phone] | | | | | floor [place], [place] | | | | | | [address] | | | | | | [phone] | | | +--------+---------+ + + + [...] wanted to have LP shunt instead of PRETZEL TWISTING MACHINE OPERATOR shunt because she d oes not weant [...]
--- OUTSIDE RECORDS SUMMARY | ~2020-08-03 | XMS | Encounter Summary ---
Demographics + + + | Address | [address] | | | [place] [address] | + + + | Home Phone [...] Author | [facility] | + + + | Organization | [facility] [employer] [facility] | + + + | Address [...] | | Haider Mailcode:OP14B | [place], | | | | | [facility] | [place] [address] | | | | | [place], [place] | | | | | | [address] | | | | | | [phone] | | | +--------+ + + + [...] note in you r In Basket in [employer]. Annabella's # is [phone]. documented in this encounter Plan of Treatment Not on filedocumented as of this encounter Visit Diagnoses Not on filedocumented in this encounter"
--- OUTSIDE RECORDS SUMMARY | ~2020-08-03 | XMS | Encounter Summary ---
Demographics + + + | Address | [address] | | | [place] [address] | + + + | Home Phone | | + + + | Preferred Language | Unknown | + + + | Marital Status | | + + + | Temple Affiliation | NON | + + + | Race | or | + + + | Ethnic Group | Not or | + + + Author + + + | Author | [facility] | + + + | Organization | [facility] [facility] | + [...] Providers + +------+ + | Care Field Sampling Technician Name | Role | Phone | + +------+ + | Brenden Benavides MD | PCP | | + +------+ + Encounter Details +--------+ + + + + | Date | Type | Department | Care Team | Description | +--------+ + + + + | 02/23/ | Telephone | [facility] | Brad Currie MD | | | 2006 | | [place] | | | | | | Neuro-Ophthalmology | | | | | | [address] [facility] | | | | | | Mailcode: PATTI | | | | | | [place] [address] | | | | | | [phone] | | | +--------+ + + + [...] Telephone Encounter - Sergio Zhu - 02/23/2007 3:27 PM PDTPatient states she is not able to see service learning coordinator in [place]- they will not see her. I spoke to Office john Jones and advised them she needed to be seen for Mattery/painful eye and decreased vis ion. I was told there is no doctor in the office until next Tuesday. I advised patient s he needs to be seen for decreased vision and pain in eye as well as mattery eye. I told quincy rossi if she could not come here she should at least see her PCP. Patient said she was just going to "wait and see what happens." Patient hung up on me mid sentence (second time). Omkar mccabe is mnu-futczppzy-R will not attempt to call patient again. Sergio Alicia Neuro Porcelain Waxer for MD Julieta Nielson MD I documented in t his encounter Plan of Treatment Not on filedocumented as of this encounter Visit Diagnoses Not on filedocumented in this encounter
--- OUTSIDE RECORDS SUMMARY | ~2020-08-03 | XMS | Encounter Summary ---
Demographics + + + | Address | [address] | | | [place] [address] | + + + | Home Phone [...] Author | [facility] | + + + | Organization | [facility] [employer] [facility] | [...] Providers + +------+ + | Care General Scrap Worker Name | Role | Phone | + +------+ + | Pedro Luis Sams MD | PCP | | + +------+ + Encounter Details +--------+ + + + + | Date | Type | Department | Care Team | Description | +--------+ + + + + | 08/31/ | Telephone | [facility] | Leticia Pitts MD | | | 2010 | | Clive/Ophthalmol | | | | | | ogy at [facility] [address] | | | | | | [facility] | | | | | | Health and Healing, | | | | | | Building | | | | | | Floor [place], [place] | | | | | | [address] | | | | | | [phone] | | | +--------+ + + + [...] repeat exam. Leticia Pitts M.D. Ophthalmology Resident [facility] documented in this encou nter Plan of Treatment Not on filedocumented as of this encounter Visit Diagnoses Not on filedocumented in this encounter"
--- OUTSIDE RECORDS SUMMARY | ~2020-08-03 | XMS | Encounter Summary ---
Demographics + + + | Address | [address] | | | [place] [address] | + + + | Home Phone [...] Author | [facility] [employer] [facility] | + + + | Organization | [facility] [employer] [facility] | + [...] Providers + +------+ + | Care It Infrastructure Consultant Name | Role | Phone | [...] Ave | | | | | [facility] for | [place], [place] | | | | | Health and Healing, | [address] | | | | | [facility] | [phone] | | | | | floor [place], [place] | | | | | | [address] | | | | | | [phone] | | | +--------+--------+ + + + [...] AM PDTLori called in an Rx for Hamer for pt however the pharm called back with some questions. Ky said she will talk to Teresa lopez about this pt as we have never perscribed this drug. elephone Encounter - Mandi Mcdonnell - 08/14/2008 8:16 AM PDTPt wo uld like an RX for Hamer. doc umented in this encounter Plan of Treatment Not on filedocumented as of this encounter Visit Diagnoses Not on filedocumented in this encounter"
--- OUTSIDE RECORDS SUMMARY | ~2020-08-03 | XMS | Encounter Summary ---
Demographics + + + | Address | [address] | | | [place] [address] | + + + | Home Phone [...] | [facility] | + + + | Organization | [facility] [employer] [facility] | + [...] [address] | | | | | | [facility] for | | | | | | Health and Healing, | | | | | | Building | | | | | | floor [place], [place] | | | | | | [address] | | | | | | [phone] | | | +--------+ + + + [...] she was supposed to go to the [facility] ED for a dislodged LPS and havi [...] if she s able to get to [facility]. Because she inquired, I made clear we cannot help her tra nsport here or evaluate her over the phone. She states she didn t make her Tuesday appt as she had what sounds to be an upper endoscopy to eval for H pylori and the doctor who did th at kept her overnight. She also states she will try to get to [facility] near here. documented i n this encounter Plan of Treatment Not on filedocumented as of this encounter Visit Diagnoses Not on filedocumented in this encounter"
--- OUTSIDE RECORDS SUMMARY | ~2020-08-03 | XMS | Encounter Summary ---
Demographics + + + | Address | [address] | | | [place] [address] | + + + | Home Phone [...] + | Organization | [facility] | [...] Providers + +------+ + | Care Video News Editor Name | Role | Phone | + +------+ + PCP | Unavailable | + +------+ + Encounter Details +--------+ + + + + | Date | Type | Department | Care Team | Description | +--------+ + + + + | 08/01/ | Hospital | [facility] | | | | 1991 | Encounter | [facility] | | | | | | [facility] [address] | | | | | | [place], | | | | | | [place] [address] | | | | | | [phone] | | | +--------+ + + + [...]
--- OUTSIDE RECORDS SUMMARY | ~2020-08-03 | XMS | Encounter Summary ---
Demographics + + + | Address | [address] | | | [place] [address] | + + + | Home Phone [...] Providers + +------+ + | Care Sales Product Manager Name | Role | Phone | + +------+ + PCP | Unavailable | + +------+ + Encounter Details +--------+ + + + + | Date | Type | Department | Care Team | Description | +--------+ + + + + | 11/22/ | Hospital | [facility] | | | | 1995 | Encounter | [facility] | | | | | | CENTER [address] | | | | | | [place] | | | | | | [address] | | | | | | [phone] | | | +--------+ + + + [...]
--- OUTSIDE RECORDS SUMMARY | ~2020-08-03 | XMS | Encounter Summary ---
Demographics + + + | Address | [address] | | | [place] [address] | + + + | Home Phone [...] Providers + +------+ + | Care Rn Ante Partum Name | Role | Phone | + +------+ + PCP | Unavailable | + +------+ + Encounter Details +--------+ + + + + | Date | Type | Department | Care Team | Description | +--------+ + + + + | 09/30/ | Hospital | [facility] | | | | 1991 | Encounter | [facility] | | | | | | [facility] [address] | | | | | | [place], | | | | | | [place] [address] | | | | | | [phone] | | | +--------+ + + + [...]
--- OUTSIDE RECORDS SUMMARY | ~2020-08-03 | XMS | Encounter Summary ---
Demographics + + + | Address | [address] | | | [place] [address] | + + + | Home Phone [...] + + | Author | [facility] | + + + | Organization | [facility] [...] +------+ + | Care Analog Ic Design Engineer Name | Role | Phone [...] | | | | | | | [place] | | | | | | | [id number] | | | | | | | [facility] | | | | | | | [place], | | | | | | | [place] [address] | | | | | | | Phone: | | | | | | | [phone] | +--------+--------+ + + + + Encounter Details +--------+ + + + + | Date | Type | Department | Care Team | Description | +--------+ + + + + | 08/01/ | Hospital | [facility] [address] | Sam Pedroza MD | | | 2007 - | Encounter | [place] | [address] | | | | | [id number] [facility] | [place], [place] | | | 08/02/ | | HOSPITAL [place], | [address] | | | 2007 | | [place] [address] | [phone] | | | | | [phone] | | | +--------+ + + + [...] in 2 weeks, please call for appointment: [phone] Condition On Discharge: Vital Signs at discharge [...] in 2 weeks, please call for appointment: [phone] Condition On Discharge: Vital Signs at discharge [...] at this time. Yessenia Nowak, OTR/ L [address] Tomasz Caldera Md - 02/2008 11:08 AM [...] 08/02/2008 12:16 PM PDTAssociated Order(s): ANESTHESIA/SEDATION Other, [facility] - 08/02/2008 12:16 PM PDTAssociated Order(s): ANESTHESIA/SEDATION Other, Faculty - 12:16 PM PDT Other, Faculty - 08/02/2008 12:16 PM PDTAssociated Order(s): ANESTHES IA/SEDATION Tomasz Rice - 08/01/2008 12:00 AM PDTAssociated Order(s): OPERATION RECOR D [id number] [facility] [id number] Date: 08/01/2008 Attending Surgeon: Sam Pedroza M.D. Restaurant Recruiter(s): Pooja Al M.D. Preoperative Diagnosis(es): Pseudotumor cerebri. [...] with tonsils and then gently incised. A [place] 4 was then easily fed through it, [...] M.D. Sam Pedroza M.D. SYBIL / LANETTE [id number] / [id number] / [id number] / am Pedroza 02/2008 12:00 AM PDTAssociated Order(s): TEACHING PHYSICIAN [id number] [place] [id number] Date: 08/01/2008 Attending Surgeon: Sam Pedroza M.D. Restaurant Recruiter(s): Pooja Al M.D. Preoperative Diagnosis(es): Pseudotumor cerebri. [...] Palomo Jansen. Sam Pedroza M.D. AD / [id number] / [id number] / [id number] / [id number] ther, Faculty - 07/24/2008 9:44 AM PDT [...] + + | Performing | Address | City/[facility] | Phone Number | | Organization | | | | + +---------+ + + | [facility] DEPARTMENT OF | | | | | RADIOLOGY | | | | + +---------+ + + OPERATION RECORD (08/01/2008 12:00 AM PDT) + + + | Narrative | Performed At | + + + | [id number] | | | [id number] | | | [place] [id number] Date: | | | 08/01/2008 Attending Surgeon: | | | Sam Pedroza M.D. Restaurant Recruiter(s): | | | Tomasz Rice M.D. | [...] | tonsils and then gently incised. A [place] 4 was then easily fed | | [...] | Pooja Pedroza M.D. KG / LANETTE [id number] / | | | [id number] / [id number] / | | + + + + + | Procedure Note | + + | Krystal Rushing, Tomasz - 08/01/2008 12:00 AM PDT [id number] | | [id number] [place] | | [id number] Date: 08/01/2008 Attending Surgeon: Sam | | Pooja Pedroza Restaurant Recruiter(s): Tomasz Rice M.D. | | Palomo Jansen [...] tonsils and | | thengently incised. A [place] 4 was then easily fed through it, [...] Sam Pedroza M.D. KG / | | [id number] / [id number] / [id number] / T: 08/02/2008 | |dripping from the [...] tonsils and then | |gently incised. A [place] 4 was then easily fed through it, [...] | | | |KG / HS | |[id number] / [id number] / [id number] / | | | | | | | | | | | | | | | | | | | | | + + TEACHING PHYSICIAN (08/01/2008 12:00 AM PDT) + + + | Narrative | Performed At | + + + | [id number] | | | [id number] | | | [place] [id number] | | | Date: 08/01/2008 Attending Surgeon: | | | Sam Pedroza M.D. Restaurant Recruiter(s): | | | Tomasz Rice M.D. | [...] Sam | | Leif Pedroza M.D. / [id number] / [id number] / [id number] / [id number] D: | | | 08/01/2008 | | + + + + + | Procedure Note | + + | Sam Pedroza MD - 08/01/2008 12:00 AM PDT [id number] | | [id number] [facility] [place] | | [id number] Date: 08/01/2008ttending Surgeon: Sam | | Pooja Pedroza Restaurant Recruiter(s): Tomasz Rice M.D. | | Palomo Jansen [...] | Bisi. Sam Pedroza M.D. AD / [id number] / [id number] / [id number] / [id number]: | | 08/01/2008T: 08/01/2008 | | | [...] | | | |AD / HS | |[id number] / [id number] / 66106 / 65506 | | | | | | | [...]
--- OUTSIDE RECORDS SUMMARY | ~2020-08-03 | XMS | Encounter Summary ---
Demographics + + + | Address | [address] | | | [place] [address] | + + + | Home Phone [...] + + | Author | [facility] | + + + | Organization | [facility] [employer] [facility] | + [...] Providers + +------+ + | Care Consulting Systems Engineer Name | Role | Phone [...] | | | | | [facility] | [place], [place] | | | | | Health and Healing, | [address] | | | | | [facility] | [phone] | | | | | floor [place], [place] | | | | | | [address] | | | | | | [phone] | | | +--------+ + + + [...] this encounter Miscellaneous Notes Telephone Encounter - Ealdio Pang MD - 03/11/2013 7:56 AM PDTPatient calls with multiple complaints. She notes that 5 days ago, she weighed 280 lbs and today she weighs 301 lbs. She thinks there is something wrong with her LP shunt. She has headaches that get better wh en lying down. She is currently driving to [facility]. She thinks she might be retaining water somewhere. I indicated that I could not evaluate her over the phone and I a lso couldn't guarantee a transfer to [facility]. She verbalized understanding. Electronically sig brad by Eladio Pang MD at 03/11/2013 8:00 AM PDTdocumented in this encounter Plan of Treatment Not on filedocumented as of this encounter Visit Diagnoses Not on filedocumented in this encounter"
--- OUTSIDE RECORDS SUMMARY | ~2020-08-03 | XMS | Encounter Summary ---
Demographics + + + | Address | [address] | | | [place] [address] | + + + | Home Phone [...] | Organization | [facility] [...] Providers + +------+ + | Care Gas Main And Line Fitter Name | Role | Phone | + +------+ + PCP | Unavailable | + +------+ + Encounter Details +--------+ + + + + | Date | Type | Department | Care Team | Description | +--------+ + + + + | 05/26/ | Hospital | [facility] | Alexa Bower DO | Infection of lumbar | | 2017 - | Encounter | [facility] [address] | [address] | spine ([facility]); Type [address] | | | [address] | [place] [address] | diabetes mellitus | | 05/27/ | | [place], [place] | [phone] | without | | 2017 | | [address] | | complication, | | | | [phone] | | unspecified long | | | | | | term insulin use | | | | | | status ([facility]); | | | | | | History of drug | | | | | | abuse ([facility]); BMI | | | | | | 40.0-44.9, adult | | | | | | ([facility]); Back pain, | | | | [...] 1542 Date of Service: 05/27/171842 Status: Signed Real Time Analyst: Reynold Garcia MD (Physician) I was informed by nursing that pt decided to leave [facility] on 05/27/2017. This has been document ed [...] 05/27/171849 Date of Service: 05/27/171842 Status: Signed Real Time Analyst: Mesha Brown RN (Registered Nurse) Pt anxious, [...] on the elevator with friends. Dr. Delvin han, resident called back and RN notified him of patient le aving AMA. Mesha Brown RN 05/27/2017 6:50 PM onver ludwin Transaction, Provider Unknown - 05/27/2017 1:03 PM PDT Nurse Progress Note by Mesha Brown RN at 05/27/17 1303 Author: Mesha Brown RN Service: (none) Author Type: Registered Nurse Filed: 05/27/17 1304 Date of Service: 05/27/17 1303 Status: Signed Real Time Analyst: Mesha Brown RN (Registered Nurse) Went to [...] Date of Service: 05/27/17 1045 Status: Signed Real Time Analyst: Da Goode RN (Registered Nurse) 05/27/17 1042 [...] Oriented Prior functional status independant Power of Vending Machine Refiller No Anticipated Discharge Plan Post Acute Care Needs None at this time Resources Financial concerns No Transportation issues No ( will transport) Patient/Family concerns No Prescription Plan Yes Name of Pharmacy [facility] [place] [facility] phone number [phone] Previous home health equipment No Vascular access device No Ostomy/Drains/Appliances No Anticipated Disposition Facility Type Home Met with patient at bedside. Annabella is a 41 year old female with a history of anxiety/depre sssion, HTN, COPD, DM type 2, and IV drug use. She lives in [place] with her daughter 2 6, and 14 year old twins. Her is currently getting a new house ready for them to mov e into and is active in their lives. Annabella went to [facility] for pelvic pain and spotting but left AMA while waiting for MR I results because she couldn't smoke. The hospital called her and recommended her to go to [facility] based on the MRI results. Patient is independent in all ADL's. Because of the IV drug use, sending her home with an I V line is not recommended is she needs outpatient IV abx. Patient's PCP is: Virginia Reddy NP Patient's insurance:[facility] MAINTENANCE FITTER; [employer] Coverage concerns:no Medication coverage/concerns: no Community resources utilized / needed: TBD Assistance in transportation: not at this time Identification of any specific education / training: TBD Barriers to Discharge / Alternative housing needed: not at this time Anticipated DCP: Home DA GOODE RN Case Management [phone] Andre Lay MD - 05/27/2017 9:46 AM PDT Progress Notes by Andre Alonso MD-R1 at 05/27/17945 Author: Andre Alonso MD-R1 Service: Hospitalist Author Type: Resident-Y1 Filed: 05/27/171900 Date of Service: 05/27/17945 Status: Attested Real Time Analyst: Andre Alonso MD-R1 (Resident-Y1) Cosigner: Reynold Garcia [...] hospitalization due to abuse p otential and skilled nursing side effects. I anticipate that pt may not be happy during this hospi yuridia stay for this reason. I recommend risk management to see pt proactively. IVDU; heroin H/o HOME CARE ADMINISTRATOR shunt. [facility] Service: Hospitalist Progress Note Hospital Day: LOS: 0 days Post-Op Day: * No surgery found * SUBJECTIVE Patient Summary: the patient is a 41-year-old female with significant past medical h istory of type II diabetes, hypertension, gastroesophageal reflux disease, depression, IV dr ug abuse who is a transfer from [facility] for further evaluation. Events Overnight: The [...] IV drug abuse who was transferred from [facility] in [place], [place] for further evaluation of suspicious lumbar [...] past 2-3 weeks. IUD was placed approximat center line 3 years ago. We are recommending that [...] 05/27/1736 Date of Service: 05/27/17633 Status: Signed Real Time Analyst: Cathy Garcia RN (Registered Nurse) Contacted [facility]. Will fax over current microbiology GC test along with most current wound culture results. onver ludwin Transaction, Provider Unknown - 05/27/2017 5:15 AM PDT Progress Notes by Remy Trinidad RPH at 05/27/17 0515 Author: Remy Trinidad RPH Service: Pharmacy Author Type: Pharmacist Filed: 05/27/17514 Date of Service: 05/27/17514 Status: Signed Real Time Analyst: Remy Trinidad RPH (Pharmacist) Note ccl 125.9ml/min meds reviewed Pharmacy will follow c 0515 docume nted in this encounter H&P Notes Tom Rae MD - 05/27/2017 2:41 AM PDT H&P by BERTRAM Boyer at 05/27/17240 Author: BERTRAM Boyer Service: Hospitalist Author Type: Resident-Y1 Filed: 05/27/17621 Date of Service: 05/27/17240 Status: Attested Addendum Real Time Analyst: BERTRAM Boyer (Resident-Y1) Related Notes: Original Note by BERTRAM Boyer (Resident-Y1) filed at 05/27/17513 Cosigner: Alexa Bower DO at 06/21/17621 Attestation signed by Alexa Bower DO at 06/21/17621 (Updated) Chief complaint: Back Pain "I had an MRI and they told me there's fluid on my spine" Abdominal Pain Vaginal Bleeding Referral "the infectious disease doctor from [place] told me to come here to be admitted" Reason for admission: Possible paraspinal abscess Patient seen and evaluated independently. Patient denies saddle anesthesia. No suprapubic d istention or tenderness noted. Agree with above assessment, will recommend closely monitoring this patient for respiratory distress and use of narcotics for pain. [facility] Service: Hospitalist Admission History & Physical Date [...] in her spine. She was seen at [facility] in [place] yesterday where she was being evaluated for [...] P ain improved with medications. Workup at [facility] revealed elevated CRP of 7.7, CBC [...] of the right facet joint of L4-L5. [place] ED physician spoke with Dr. Triston alcantara (ID) who recommended radiology guided sampling of fluid by IR as well as blood cultures . He called patient to advise her to come to [facility] for further evaluation. Patient uses IV he roin, last use was yesterday due to the pain. She states she is unsure if the needles she us es are clean. In the [facility] ED, patient found to be afebrile [...] back pain MRI lumbar spine performed at [facility] in [place] showed a subcentimeter rim-enhanci ng collection adjacent [...] drug abuse Currently using IV heroin. Consulted machine adjuster leader case trim for assistance with drug rehabilitation. Type 2 [...] follow up urinalysis - G/C Aptima from [facility] pending, hospitalist to request results DVT [...] 06/06/17921 Date of Service: 05/27/17617 Status: Addendum Real Time Analyst: Kate Rangel MD (Physician) Related Notes: Original Note by Kaet Rangel MD (Physician) filed at 06/06/17920 [facility] Service: Infectious Disease Initial Consult Note Date of Admission: 05/26/2017 Reason for Consultation: Concern for spine infection in a patient with history of IV drug use Requesting Physician: Dr. Alexa Bower, Hospitalist History Obtained From: patient, chart review CHIEF COMPLAINT: Back pain; prior evaluation at [facility] in [place] with MRI concer ns for spine infection HISTORY OF PRESENT ILLNESS The patient is a 41 y.o. female with significant past medical history of IV heroin use (las t used about 2 weeks ago), MRSA skin infection, type 2 DM, anxiety, depression, had a HOME CARE ADMINISTRATOR shar nt in [place], [place] in 2005 and per patient's account had further surgery/?taken out at [facility] in 008. She denies history of HIV or [...] On 05/25, the patient was seen at [facility] in [place] for low back pain which she linda cribed as severe and pelvic pain. She has been having vaginal spotting; she has an IUD and described having normal period the prior month. The vaginal spotting reportedly has stopped but she is interested in seeing a SLUNK SKINNER. The low back pain is persistent, described [...] had been (informally) reviewed by Neurosurgery and [facility] does not think there is enough [...] normal menstruation in the past month. Suggest OB-SLUNK SKINNER refe rral as an outpatient. Case had been discussed with ER physician at [facility] and with Dr. Garcia, her hospitalis [...] 05/27/17313 Date of Service: 05/27/17313 Status: Signed Real Time Analyst: Kenya Zavala RN (Registered Nurse) Dr Bower at pt BS Kenya Zavala RN 05/27/17313 Ed Nation MD - 05/27/2017 12:26 AM PDT ED Provider Notes by Ed Toeny DO at 05/27/17 0026 Author: Ed Toney DO Service: Emergency Department Author Type: Physician Filed: 05/27/17 0443 Date of Service: 05/27/17 0026 Status: Signed Real Time Analyst: Ed Toney DO (Physician) [facility] Department of Emergency Medicine 12:26 AM 05/26/2017 [...] Bleeding Referral "the infectious disease doctor from [place] told me to come here to be admitted" Patient presents to the ED with complaints of back pain. Onset of symptoms was today, with a constant course since that time. Symptoms are described to be of moderate severity. Patipeyman t describes quality and location of symptoms as: worsening sharp lower back pain. Patient al so complains of vaginal bleeding. Patient was seen in the [place] ED 3 days ago for vagina l bleeding, where she was found to have a "pocket of fluid in my spine." Patient became upse t, then left the facility AMA. She was then called today with her results, and advised to co me to [facility] ED for further evaluation/admission. The patient has [...] and was advised to come to the [facility] ED for admission and treatment of possible abscess of spine. Dr. Rangel is aware of patient's case and is requesting three sets of blood cul tures and admission. Will order labs, and reevaluate. Will also obtain MRI report. 2:25 AM Reviewed patient's records which were sent from [facility] in [place]. 2:34 AM Discussed patient's case with Dr. Bower, hospitalist, who accepts patient for admis ludwin. Medications sodium chloride 0.9 % with KCl 40 mEq infusion (110 mL/hr Intravenous New Bag 05/27/17 030) Patient Vitals for the past 24 hrs: BP Temp Temp src Pulse Resp SpO2 Weight 05/27/17 041 107/59 mmHg - - 82 18 95 [...] reviewed (Using the electronic record system of [facility], I car efully reviewed the records with regard to the past medical/surgical history, previous medic ations, and allergies). Nursing notes reviewed for chief complaint, medications, clinical presentation and vital si gns Laboratory Evaluation Results Procedure Component Value Ref Range Date/Time Drugs of Abuse Screen, UR Hospital and ED Only [[id number]] Order Status: Sent Specimen Information: Urine, Clean Catch Cardiac Panel [[id number]] (Abnormal) Collected: 05/27/17315 Order Status: Completed Updated: [...] Index UNABLE TO CALCULATE Sedimentation Rate (ESR) [[id number]] (Abnormal) Collected: 06/30/17 0316 Order Status: Completed Specimen Information: Blood Updated: 05/27/17357 ESR 23 (H) 0 - 20 mm/Hr Lactic acid [[id number]] Collected: 05/27/17316 Order Status: Completed Specimen Information: Blood Updated: 05/27/17348 LACTIC ACID 0.4 0.4 - 2.0 mmol/L C-Reactive Protein [[id number]] (Abnormal) Collected: 05/27/17315 Order Status: Completed Specimen Information: Blood Updated: 05/27/17347 CRP 1.7 (H) <0.5 mg/dL Blood culture, set 2 [[id number]] Collected: 05/27/17317 Order Status: Sent Specimen Information: Blood from Blood Updated: 05/27/17322 Blood Culture Set 1 [[id number]] Collected: 05/27/17314 Order Status: Sent Specimen Information: Blood from Blood Updated: 05/27/17320 Urinalysis (reflex to microscopic/reflex to culture) [[id number]] (Abnormal) Collected: 05/27/17199 Order Status: Completed Specimen Information: Urine, Clean Catch Updated: 05/27/17 02 23 COLOR UA RED CLARITY CLEAR Specific [place], UA 1.005 1.002 - 1.030 LEUKOCYTE ESTERASE [...] Type 2 diabetes mellitus without complication, unspecified skilled nursing insulin use status (H CC) History of [...] recognition system. The possibility of "sound alike" flying teacher errors, addition and/or deletions may occur. If [...] Date of Service: 05/27/17 0004 Status: Signed Real Time Analyst: Kenya Zavala RN (Registered Nurse) "3 Days [...] are thinking its infected" Kenya Zavala RN 05/27/17 0007 docume nted in this encounter Miscellaneous Notes Plan of Care - Conversion Transaction, Provider Unknown - 05/27/2017 8:06 AM PDT Plan of Care by Mesha Brown RN at 05/27/17805 Author: Mesha Brown RN Service: (none) Author Type: Registered Nurse Filed: 05/27/17805 Date of Service: 05/27/17805 Status: Signed Real Time Analyst: Mesha Brown RN (Registered Nurse) Problem: Pain [...] NEGATIVE Testing | | | performed at [facility];[address] [place] [address];[place] [address] | | + + + + +---------+ [...] | | | Fingerstick | performed at [facility];[address] | | LAB | | | | [address];[place] | | | | | | [address] | | | | + + + [...] | | | Fingerstick | performed at [facility];[address] | | LAB | | | | [address];[place] | | | | | | [address] | | | | + + + [...] - 1.030 | EXTERNAL | | | [place], | | | LAB | | | [...] | | l squamous | performed at [facility], [address] | | LAB | | | epithelia, | [address], | | | | | UA | [place] [address] | | | | + + + [...] | | | Patient | performed at [facility];[address] | | LAB | | | [address];[place], [place] | | | | | | [address] | | | | + + + [...] | | | | | performed at [facility] | | | | | | [address];[place], [place] | | | | | | [address] | | | | + + + [...] | | | Basophils | performed at [facility], [address] | K/uL | LAB | | | | [address], | | | | | | [place] [address] | | | | + + + [...] EXTERNAL | | | | performed at [facility], [address] | | LAB | | | | [address], | | | | | | [place] [address] | | | | + + + [...] EXTERNAL | | | | performed at [facility], [address] | | LAB | | | | [address], | | | | | | [place] [address] | | | | + + + [...] + + | Hemoglobin | 5.7Comment: The [place] | 4.0 - 6.0 % | EXTERNAL [...] | | | | | performed at [facility], [address] | | | | | | [address], | | | | | | [place] [address] | | | | + + + [...] | | | | | | at [facility], [address] | | | | | | [address], | | | | | | [place] [address] | | | | + + + [...] | | | Fingerstick | performed at [facility];[address] | | LAB | | | | [address];[place], [place] | | | | | | [address] | | | | + + + [...] | | | | | performed at [facility];[address] | | | | | | [facility];[place], [place] | | | | | | [address] | | | | + + + [...] EXTERNAL | | | | performed at [facility];[address] | mmol/L | LAB | | | | [address];[place] | | | | | | [address] | | | | + + + [...] at | | | | | | [facility];[address] [place] [address] | | | | | | Blvd;[place] [address] | | | | + + + [...] EXTERNAL | | | | performed at [facility] | | LAB | | | | [address];[place], [place] | | | | | | [address] | | | | + + + [...] EXTERNAL | | | | performed at [facility];[address] | | LAB | | | | [address];[place], [place] | | | | | | [address] | | | | + + + [...] | | | QUALITATIVE | performed at [facility] | | LAB | | | | Ne[address] [facility];[place], [place] | | | | | | [address] | | | | + + + [...] - 1.030 | EXTERNAL | | | [place], | | | LAB | | | [...] | | | Cells | performed at [facility];[address] | | LAB | | | | [address];[place], [place] | | | | | | [address] | | | | + + + [...] Type 2 diabetes mellitus without complication, unspecified buttermilk drier operator insulin use | | status | + [...]
--- OUTSIDE RECORDS SUMMARY | ~2020-08-03 | XMS | Encounter Summary ---
Demographics + + + | Address | [address] | | | [place] [address] | + + + | Home Phone | | + + + | Preferred Language | Unknown | + + + | Marital Status | | + + + | Denominational Affiliation | NON | + + + | Race | or | + + + | Ethnic Group | Not or | + + + Author + + + | Author | [facility] [employer] [facility] | + + + | Organization | [facility] [employer] [facility] | + [...] Team Providers + +------+ + | Care 3Rd Grade Reading Teacher Name | Role | Phone [...] [address] | | | | | | [address] | [address] | | | | | | [address] | [place], [place] | | | | | | [place], | [address] | | | | | | [place] [address] | Phone: | | | | | | Phone: | [phone] | | | | | | [phone] | Fax: | | | | | | Fax: | [phone] | | | | | | [phone] | | +--------+ + + + + [...] | | | [facility] for | [place], [place] | | | | | Health and Healing, | [address] | | | | | | [phone] | | | | | floor [place], [place] | | | | | | [address] | | | | | | [phone] | | | +--------+---------+ + + + [...] soon. I spent more than 15 minutes mlrh-kt-dwci with the patient of which greater than 50% was sp ent counseling the patient regarding the shunt removal, indications and venous sinus stent a ngioplasty. Since her shunt is brent effective now she will need narcotics for headache and he r PCP should manage that. CASIMIRO PAYTON MD NEUROSURGERY [address] Mailcode: Ch[facility], 8th Floor [facility] [address] documented in this encou nter Miscellaneous Notes Scan - Skyla, Faculty - 09/21/2011 11:40 AM PDTElectronically signed by Faculty Other at 11:40 AM PDTdocumented in this encounter Plan of Treatment Not on filedocumented as of this encounter Visit Diagnoses + + | Diagnosis | + + | Pseudotumor cerebri - Primary Benign intracranial hypertension | + + documented in this encounter
--- OUTSIDE RECORDS SUMMARY | ~2020-08-03 | XMS | Encounter Summary ---
Demographics + + + | Address | [address] | | | [place] [address] | + + + | Home Phone [...] Team Providers + +------+ + | Care Cement Mixer Driver Name | Role | Phone | + +------+ + PCP | Unavailable | + +------+ + Encounter Details +--------+ + + + + | Date | Type | Department | Care Team | Description | +--------+ + + + + | 08/21/ | Hospital | [facility] | | | | 1991 | Encounter | [facility] | | | | | | CENTER [address] | | | | | | [place] | | | | | | [address] | | | | | | [phone] | | | +--------+ + + + [...]
--- OUTSIDE RECORDS SUMMARY | ~2020-08-03 | XMS | Encounter Summary ---
Demographics + + + | Address | [address] | | | [place] [address] | + + + | Home Phone [...] | + + +---------+ + | Saad Pedro Pablo | ECON | Unknown | | + + +---------+ + Care Team Providers + +------+ + | Care Information Strategist Name | Role | Phone | + +------+ + | Amanda Herzog PA-C | PCP | | + +------+ + Encounter Details +--------+ + + + + | Date | Type | Department | Care Team | Description | +--------+ + + + + | 12/27/ | Abstract | [facility] [place] | Provider, | | | 2018 | | PHYSIATRY [address] | [address] | | | | | [address] | | | | | [place], [place] | [place] [address] | | | | | [address] | | | | | | [phone] | | | +--------+ + + + [...]
--- OUTSIDE RECORDS SUMMARY | ~2020-08-03 | XMS | Encounter Summary ---
Demographics + + + | Address | [address] | | | [place] [address] | + + + | Home Phone [...] | Author | [facility] [employer] [facility] | + + + | Organization | [facility] [employer] [facility] | + [...] Team Providers + +------+ + | Care Quantitative Consultant Name | Role | Phone | [...] | | | | | [facility] [place] [place] [facility] | [address] | | | | | Health and Healing, | [place], [place] | | | | | Building | [address] | | | | | Floor [place], [place] | | | | | | [address] | | | | | | [phone] | | | +--------+ + + + [...]
--- OUTSIDE RECORDS SUMMARY | ~2020-08-03 | XMS | Encounter Summary ---
Demographics + + + | Address | [address] | | | [place] [address] | + + + | Home Phone [...] + | Author | [facility] | + + + | Organization | [facility] [employer] [facility] | + + + | Address | Unknown | + + + | Phone | Unavailable | + + + Support + + +---------+ + | Name | Relationship | Address | Phone | + + +---------+ + | Ruby Au | ECON | Unknown | | + + +---------+ + Care Team Providers + +------+ + | Care General Surgeon Name | Role | Phone | [...] Telephone follow-up | | 2015 | | [place] | [address] | | | | | Neuro-Ophthalmology | [place], [place] | | | | | at [facility] [address] | [address] | | | | | [facility] | [phone] | | | | | Health and Healing, | | | | | | | | | | | | [place], [place] | | | | | | [address] | | | | | | [phone] | | | +--------+ + + + [...] this encounter Miscellaneous Notes Telephone Encounter - Lindsay Hayward - 01/28/2015 2:42 PM PSTPatient called donis [...]
--- OUTSIDE RECORDS SUMMARY | ~2020-08-03 | XMS | Encounter Summary ---
Demographics + + + | Address | [address] | | | [place] [address] | + + + | Home Phone [...] | Author | [facility] [employer] [facility] | + + + | Organization | [facility] [employer] [facility] [...] Providers + +------+ + | Care Library Circulation Assistant Name | Role | Phone | [...] + | 06/24/ | Emergency | [facility] Emergency | | | | 2010 | | Department [address] | | | | | | [address] | | | | | | [facility] | | | | | | [place], [place] | | | | | | [address] | | | | | | [phone] | | | +--------+ + + + [...]
--- OUTSIDE RECORDS SUMMARY | ~2020-08-03 | XMS | Encounter Summary ---
Demographics + + + | Address | [address] | | | [place] [address] | + + + | Home Phone [...] + + | Author | [facility] | + + + | Organization | [facility] | + [...] Providers + +------+ + | Care Transformer Stock Clerk Name | Role | Phone | [...] | | 2006 | Visit | [facility] at | Bud Alexander MD [address] | (Primary Dx) | | | | [facility] [place] [address] | [address] | | | | | [address] | [place], [place] | | | | | Eye [facility] [place] | [address] | | | | | [place], [place] | [phone] | | | | | [address] | [...]
--- OUTSIDE RECORDS SUMMARY | ~2020-08-03 | XMS | Encounter Summary ---
Demographics + + + | Address | [address] | | | [place] [address] | + + + | Home Phone [...] Organization | [facility] [...] Team Providers + +------+ + | Care Building Surveyor Name | Role | Phone | + +------+ + PCP | Unavailable | + +------+ + Encounter Details +--------+ + + + + | Date | Type | Department | Care Team | Description | +--------+ + + + + | 10/27/ | Hospital | [facility] | | | | 1990 | Encounter | [facility] CTR EM[facility] | | | | | | CENTER [address] | | | | | | [place] | | | | | | [address] | | | | | | [phone] | | | +--------+ + + + [...]
--- OUTSIDE RECORDS SUMMARY | ~2020-08-03 | XMS | Encounter Summary ---
Demographics + + + | Address | [address] | | | [place] [address] | + + + | Home Phone [...] + + | Author | [facility] | + + + | Organization | [facility] [employer] [facility] [...] Team Providers + +------+ + | Care Heat Curer Name | Role | Phone | + [...] | | | Ave Center for | [place], [place] | Encounters | | | | Health and Healing, | [address] | | | | | [facility] | [phone] | | | | | floor [place], [place] | | | | | | [address] | | | | | | [phone] | | | +--------+ + + + [...] Pedroza last approved the rx 05/01/08 for Simpson 10-325mg, #90, take 1 tablet every 4-6 hours as needed for pain. I verified this information with the [facility] pharmacy. Kiki approved the rx for Simpson 10-325mg, #80, take 1 tablet every 4-6 hours prn, No refills. This was called into [facility] pharmacy, spoke kitr sandra Garcia, . Please sign orders below [...]
--- OUTSIDE RECORDS SUMMARY | ~2020-08-03 | XMS | Encounter Summary ---
Demographics + + + | Address | [address] | | | [place] [address] | + + + | Home Phone | | + + + | Preferred Language | Unknown | + + + | Marital Status | | + + + | Restoration Affiliation | NON | + + + | Race | or | + + + | Ethnic Group | Not or | + + + Author + + + | Author | [facility] | + + + | Organization | [facility] [employer] [facility] | + + [...] Providers + +------+ + | Care Food Tray Assembler Name | Role | Phone | + +------+ + | Brenden Benavides MD | PCP | | + +------+ + Encounter Details +--------+ + + + + | Date | Type | Department | Care Team | Description | +--------+ + + + + | 02/22/ | Telephone | [facility] | Brad Currie MD | | | 2006 | | [place] | | | | | | Neuro-Ophthalmology | | | | | | [address] [facility] | | | | | | Mailcode: PATTI | | | | | | [place] [address] | | | | | | [phone] | | | +--------+ + + + [...] Zhu - 02/22/2007 2:21 PM PDTPatient recently hoewll d procedure with in Oculoplastics. I spoke with Oculoplastics and thought they would be best to return this call as there was a question of infection at last visit. A tech from [employer] will be calling this patient. Sergio Alicia Neuro Records Coordinator for MD Julieta Nielson MD Jacqueline Holodak wrote: Sergio, Please call patient - she says she has a green discharge coming form her eye & some pain. Thanks, Taryn documented in th is encounter Plan of Treatment Not on filedocumented as of this encounter Visit Diagnoses Not on filedocumented in this encounter"
--- OUTSIDE RECORDS SUMMARY | ~2020-08-03 | XMS | Encounter Summary ---
Demographics + + + | Address | [address] | | | [place] [address] | + + + | Home Phone [...] + + | 09/30/ | Hospital | [facility] | | | | 1990 | Encounter | MED CTR EMERGENCY | | | | | | CENTER [address] | | | | | | [place] | | | | | | [address] | | | | | | [phone] | | | +--------+ + + + [...]
--- OUTSIDE RECORDS SUMMARY | ~2020-08-03 | XMS | Encounter Summary ---
Demographics + + + | Address | [address] | | | [place] [address] | + + + | Home Phone [...] | Author | [facility] [email or web address] [facility] | + + + | Organization | [facility] [employer] [facility] | + [...] Providers + +------+ + | Care Applications Processor Name | Role | Phone | [...] | | | Ave Center for | [place], [place] | | | | | Health and Healing, | [address] | | | | | [facility] | [phone] | | | | | floor [place], [place] | | | | | | [address] | | | | | | [phone] | | | +--------+ + + + [...]
--- OUTSIDE RECORDS SUMMARY | ~2020-08-03 | XMS | Encounter Summary ---
Demographics + + + | Address | [address] | | | [place] [address] | + + + | Home Phone | | + + + | Preferred Language | Unknown | + + + | Marital Status | | + + + | Episcopal Affiliation | NON | + + + | Race | or | + + + | Ethnic Group | Not or | + + + Author + + + | Author | [facility] | + + + | Organization | [facility] [employer] [facility] [...] Team Providers + +------+ + | Care Front Office Secretary Name | Role | Phone | [...] Cerebri; | | 2006 | Visit | [place] | Cassi Clark | Pain in or Around | | | | Oculoplastics at | [place], [place] | Eye | | | | [facility] [address] | [address] | | | | | [address] | [phone] | | | | | Eye [place] | | | | | | [facility], [facility] floor | | | | | | [place] [address] | | | | | | [phone] | | | +--------+---------+ + + + [...] to be seen here or by an seasonal recruiter in [facility], but she says she does not have transportation. I will call in Vicodin #20, pt to call i mmediately if there is any worsening. Pt states lucho lump in left jewish is gone. No pain. Pt. Had cough [...]
--- OUTSIDE RECORDS SUMMARY | ~2020-08-03 | XMS | Encounter Summary ---
Demographics + + + | Address | [address] | | | [place] [address] | + + + | Home Phone [...] | Organization | [facility] [...] Providers + +------+ + | Care Aircraft Systems Repairer Name | Role | Phone | + +------+ + PCP | Unavailable | + +------+ + Encounter Details +--------+ + + + + | Date | Type | Department | Care Team | Description | +--------+ + + + + | 09/07/ | Hospital | [facility] | | | | 1991 | Encounter | MED CTR EMERGENCY | | | | | | CENTER [address] | | | | | | [place] | | | | | | [address] | | | | | | [phone] | | | +--------+ + + + [...]
--- OUTSIDE RECORDS SUMMARY | ~2020-08-03 | XMS | Encounter Summary ---
Demographics + + + | Address | [address] | | | [place] [address] | + + + | Home Phone | | + + + | Preferred Language | Unknown | + + + | Marital Status | | + + + | Sikh Affiliation | NON | + + + | Race | or | + + + | Ethnic Group | Not or | + + + Author + + + | Author | [facility] [facility] | + + + | Organization | [facility] [facility] | [...] Team Providers + +------+ + | Care Tire Man Name | Role | Phone | [...] Report | | 2006 | | Center [place] [address] | | | | | Transcribed | S [facility] | | | | | | for Health and | | | | | | Healing, [address] | | | | | | [place], [place] | | | | | | [address] | | | | | | [phone] | | | +--------+ + + + [...] 02/07/2007 12:00 AM PDTAssociated Order(s): OPERATION RECORD [id number] [facility] AN[place]LLA [id number] Date: 02/07/2007 Attending Surgeon: Hay Hughes M.D. Out And Out Cigar Maker Hand(s): Pascual Bermudez M.D. 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 The social research assistant retracted the orbital fat bag with [...] in good condition. Hay Hughes M.D. / [id number] / [id number] / [id number] / [id number] cc: Brad Currie M.D. [facility] Brenden Benavides M.D. [facility] [address] [place] [id number] Electronically signed by Hay Hughes 02-12-2007 05:13:05 [...] | 02/07/2007 12:00 AM PDT | | [id number] | | [id number] [place] [id number] | | | | Date: 02/07/2007 | | | | Attending Surgeon: Hay Hughes M.D. | | | | Out And Out Cigar Maker Hand(s): Pascual Bermudez M.D. | | | | [...] and medial orbital | | septum. The social research assistant retracted the orbital fat bag with [...] | | | JN / | | [id number] / [id number] / [id number] / [id number] | | | | | | | | cc: | | | | | | Brad Currie M.D. | | [facility] | | | | | | Brenden Benavides M.D. | | [facility] | | [address] | | [place] [address] | | | | | | Electronically signed by Hay Hughes 02-12-2007 05:13:05 PM | | | | | + + documented in this encounter Visit Diagnoses Not on filedocumented in this encounter"
--- OUTSIDE RECORDS SUMMARY | ~2020-08-03 | XMS | Encounter Summary ---
Demographics + + + | Address | [address] | | | [place] [address] | + + + | Home Phone [...] | Organization | [facility] [...] Providers + +------+ + | Care Collar Separator Name | Role | Phone | + +------+ + PCP | Unavailable | + +------+ + Encounter Details +--------+ + + + + | Date | Type | Department | Care Team | Description | +--------+ + + + + | 05/28/ | Hospital | [facility] | | | | 1991 | Encounter | MED CTR EMERGENCY | | | | | | CENTER [address] | | | | | | [place] | | | | | | [address] | | | | | | [phone] | | | +--------+ + + + [...]
--- OUTSIDE RECORDS SUMMARY | ~2020-08-03 | XMS | Encounter Summary ---
Demographics + + + | Address | [address] | | | [place] [address] | + + + | Home Phone [...] + +------+ + | Care Sales Representative Facility Services Name | Role | Phone | [...] [place] | | | | | | [address] | | | | | | [phone] | | | +--------+ + + + [...]
--- OUTSIDE RECORDS SUMMARY | ~2020-08-03 | XMS | Encounter Summary ---
Demographics + + + | Address | [address] | | | [place] [address] | + + + | Home Phone [...] Providers + +------+ + | Care Registered Dietician Name | Role | Phone | + +------+ + PCP | Unavailable | + +------+ + Encounter Details +--------+ + + + + | Date | Type | Department | Care Team | Description | +--------+ + + + + | 07/14/ | Hospital | [facility] | | | | 1998 | Encounter | MED CTR EMERGENCY | | | | | | CENTER [address] | | | | | | [place] | | | | | | [address] | | | | | | [phone] | | | +--------+ + + + [...]
--- OUTSIDE RECORDS SUMMARY | ~2020-08-03 | XMS | Encounter Summary ---
Demographics + + + | Address | [address] | | | [place] [address] | + + + | Home Phone [...] | Author | [facility] [employer] [facility] | + + + | Organization | [facility] D-ÉG [employer] [facility] [...] Providers + +------+ + | Care Sports Marketing Specialist Name | Role | Phone [...] Request (Pt | | 2006 | | [place] | DANIELITO Hammer | requests more pain | | | | Oculoplastics at | [place], [place] | medication) | | | | [address] | [address] | | | | | [address] | [phone] | | | | | Eye [place] | | | | | | [facility], [address] [place] [address] | | | | | | [place] [address] | | | | | | [phone] | | | +--------+--------+ + + + [...]
--- OUTSIDE RECORDS SUMMARY | ~2020-08-03 | XMS | Encounter Summary ---
Demographics + + + | Address | [address] | | | [place] [address] | + + + | Home Phone [...] + | Author | [facility] | + + + | Organization | [facility] [employer] [facility] [...] +------+ + | Care Vice President Of Recruiting Name | Role | Phone | + [...] | | | | | [place] for | [address] | | | | | Health and Healing, | [facility] [place] | | | | | | [address] | | | | | Floor [place], [place] | | | | | | [address] | | | | | | [phone] | | | +--------+--------+ + + + [...]
--- OUTSIDE RECORDS SUMMARY | ~2020-08-03 | XMS | Encounter Summary ---
Demographics + + + | Address | [address] | | | [place] [address] | + + + | Home Phone [...] Team Providers + +------+ + | Care Aerodynamics Teacher Name | Role | Phone | + +------+ + PCP | Unavailable | + +------+ + Encounter Details +--------+ + + + + | Date | Type | Department | Care Team | Description | +--------+ + + + + | 05/18/ | Hospital | [facility] | | | | 1991 | Encounter | MED CTR WOMENS | | | | | | HEALTH [facility] [address] | | | | | | [place], | | | | | | [place] [address] | | | | | | [phone] | | | +--------+ + + + [...]
--- OUTSIDE RECORDS SUMMARY | ~2020-08-03 | XMS | Encounter Summary ---
Demographics + + + | Address | [address] | | | [place] [address] | + + + | Home Phone [...] | [facility] [employer] [facility] | + + + | Organization | [facility] [employer] [facility] | + [...] Providers + +------+ + | Care Manager Support Services Name | Role | Phone | [...] Erroneous Encounter | | 2007 | | [place] [facility] | [place] [facility] | - Disregard | | | | and Healing [address] | Neurosurgery [address] | | | | | [address] [facility] | [address] | | | | | Health and Healing, | [place], [place] | | | | | [facility] | [address] | | | | | Floor [place], [place] | | | | | | [address] | | | | | | [phone] | | | +--------+ + + + [...]
--- OUTSIDE RECORDS SUMMARY | ~2020-08-03 | XMS | Encounter Summary ---
Demographics + + + | Address | [address] | | | [place] [address] | + + + | Home Phone [...] | Organization | [facility] [...] Providers + +------+ + | Care Television Station Manager Name | Role | Phone | [...] [place] | | | | | | [address] | | | | | | [phone] | | | +--------+ + + + [...]
--- OUTSIDE RECORDS SUMMARY | ~2020-08-03 | XMS | Encounter Summary ---
Demographics + + + | Address | [address] | | | [place] [address] | + + + | Home Phone [...] Author | [facility] [employer] [facility] | + + + | Organization | [facility] Interview Master Science [facility] [...] Providers + +------+ + | Care Signal Inspector Name | Role | Phone | [...] | | | | | | | [address] | | | | | | | [facility] | | | | | | | [place], | | | | | | | [address] [place] [address] | | | | | | | [place], [place] | | | | | | | [address] Phone: | | | | | | | [phone] | | | | | | | Fax: | | | | | | | [phone] | +--------+--------+ + + + + Encounter Details +--------+ + + + + | Date | Type | Department | Care Team | Description | +--------+ + + + + | 03/26/ | Procedure | [facility] | | Visual field testing | | 2012 | | [place] [facility] | | | | | | [facility] at [facility] [address] | | | | | | [address] [facility] | | | | | | for Health and | | | | | | Healing, [address], | | | | | | 11th Floor | | | | | | [place], [place] | | | | | | [address] | | | | | | [phone] | | | +--------+ + + + [...] Au was seen in the [facility] [place] [facility] Department today, 2012, for 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 documented in this encounter Plan of Treatment Not on filedocumented as of this encounter Procedures + +--------+ + + + | Procedure Name | Priori | Date/Time | Associated Diagnosis | Comments | | | ty | | | | + +--------+ + + + | [place] VISUAL FIELD | Routin | 03/26/2013 | [...]
--- OUTSIDE RECORDS SUMMARY | ~2020-08-03 | XMS | Encounter Summary ---
Demographics + + + | Address | [address] | | | [place] [address] | + + + | Home Phone [...] Providers + +------+ + | Care Software Product Manager Name | Role | Phone | + +------+ + PCP | Unavailable | + +------+ + Encounter Details +--------+ + + + + | Date | Type | Department | Care Team | Description | +--------+ + + + + | 05/25/ | Hospital | [facility] | | | | 1991 | Encounter | MED CTR [facility] | | | | | | HEALTH [facility] [address] | | | | | | [place], | | | | | | [place] [address] | | | | | | [phone] | | | +--------+ + + + [...]
--- OUTSIDE RECORDS SUMMARY | ~2020-08-03 | XMS | Encounter Summary ---
Demographics + + + | Address | [address] | | | [place] [address] | + + + | Home Phone [...] Team Providers + +------+ + | Care Concert Or Lecture Hall Manager Name | Role | Phone | [...] | | MEDICAL CENTER | [place] [address] | intracranial | | | | EMERGENCY CENTER | [address] | hypertension; Back | | | | [address] | [place] [address] | pain | | | | [place], [place] | [phone] | | | | | [address] | | | | | | [phone] | | | +--------+ + + + [...] 07/10/132043 Date of Service: 07/10/132043 Status: Signed Poultry Dresser: Magdiel Jansen RN (Registered Nurse) Pt stated [...] 07/10/132041 Date of Service: 07/10/132024 Status: Signed Poultry Dresser: Magdiel Jansen RN (Registered Nurse) Returned from radiology. Tolerated procedure well. Magdiel Jansen RN 07/10/132041 onver ludwin Transaction, Provider Unknown - 07/10/2013 8:02 PM PDT ED Notes by Magdiel Jansen RN at 07/10/132001 Author: Magdiel Jansen RN Service: (none) Author Type: Registered Nurse Filed: 07/10/132002 Date of Service: 07/10/132001 Status: Signed Poultry Dresser: Magdiel Jansen RN (Registered Nurse) Pt transported to radiology via gurney with tech. Magdiel Jansen RN 07/10/132002 erry Negro MD - 07/10/2013 7:29 PM PDTFormatting of this note might be different from th e original. ED Provider Notes by Anoop Flores MD at 07/10/131928 Author: Anoop Flores MD Service: (none) Author Type: Physician Filed: 07/10/132239 Date of Service: 07/10/131928 Status: Signed Poultry Dresser: Anoop Flores MD (Physician) [facility] Department of Emergency Medicine History of [...] shown by XR with her Dr in [place] earlier in the year. Reports grad ual [...] et. Care prior to arrival consisted of [place] twice daily, with no relief. Patient cannot catarina e NSAIDS. Patient's shunt [place] [address] [place] in [facility] [place], for Hydrocephalus. Patient stat es she had no problems with it until this year. Patient has been having headaches all year. Patient lives in [place], spoke with the Neurosurgeon authorization rep, and was told to go to a [facility] with a Neurosurgeon. PCP: [facility] Past Medical History Diagnosis Date Diabetes [...] Value Ref Range Date/Time Comprehensive metabolic panel [[id number]] (Abnormal) Collected:07/10/131946 Order Status:Completed Updated:07/10/132010 Specimen Information:Blood [...] EGFR >60 >60 mL/min/1.73m2 CBC with differential [[id number]] (Abnormal) Collected:07/10/131946 Order Status:Completed Updated:07/10/131953 Specimen Information:Blood [...] Results In [place] (07/10/13 20:27:21) Narrative: ANNABELLA UA CT HEAD WO CONTRAST HISTORY: 37 years. [...] Morris MD Follow up this week [address] [facility] [address] [facility] Follow up next week [address] [place] [address] [facility] Emergency Department If symptoms worsen [address] [facility] [address] Discharge Medications: New Prescriptions No new medications Additional Documentation Procedures Attending Note: Documentation assistance provided by Jade Burgos (Scribe). Information recorded by the scribe has been reviewed and validated by . Simon nolasco with its contents. Anoop Flores MD 07/10/13 2420 onversio n Transaction, Provider Unknown - 07/10/2013 6:15 PM PDTFormatting of this note might be di fferent from the original. ED Notes by Magdiel Jansen RN at 07/10/131814 Author: Magdiel Jansen RN Service: (none) Author Type: Registered Nurse Filed: 07/10/131938 Date of Service: 07/10/131814 Status: Signed Poultry Dresser: Magdiel Jansen RN (Registered Nurse) Bed side [...] | + + + | ANNABELLA [place] [facility] CT HEAD WO CONTRAST HISTORY: 37 years. [...]
--- OUTSIDE RECORDS SUMMARY | ~2020-08-03 | XMS | Encounter Summary ---
Demographics + + + | Address | [address] | | | [place] [address] | + + + | Home Phone [...] Team Providers + +------+ + | Care Public Housing Interviewer Name | Role | Phone | [...] | | | | EMERGENCY CENTER | [place], [place] | | | | | [address] | [address] | | | | | [place], [place] | [phone] | | | | | [address] | | | | | | [phone] | | | +--------+ + + + [...] 03/03/132032 Date of Service: 03/03/132032 Status: Signed Journalists And Other Writers: Jovanny Collado RN (Registered Nurse) Dr. Reyes @ BS Jovanny Collado RN 03/03/132032 onver ludwin Transaction, Provider Unknown - 03/03/2013 6:56 PM PDT ED Notes by Jovanny Collado RN at 03/03/131855 Author: Jovanny Collado RN Service: (none) Author Type: Registered Nurse Filed: 03/03/131855 Date of Service: 03/03/131855 Status: Signed Journalists And Other Writers: Jovanny Collado RN (Registered Nurse) Dr. Reyes @ BS Jovanny Collado RN 03/03/131855 rtis Reyes DO - 03/03/2013 6:55 PM PDTFormatting of this note might be different from the or iginal. ED Provider Notes by Artis Reyes DO at 03/03/131854 Author: Artis Reyes DO Service: (none) Author Type: Physician Filed: 03/04/13 223 Date of Service: 03/03/131854 Status: Signed Journalists And Other Writers: Artis Reyes DO (Physician) [facility] Department of Emergency Medicine 6:55 PM [...] ncludes; cholecystectomy, appendectomy, and one . [facility] Past Medical History Diagnosis Date Diabetes [...] sore throat CV/Resp: Negative for chest pain, lpvzbcjch-[id number]-ydbfhc, cough GI: Negative for diarrhea Positive for [...] plan. Records Reviewed Nursing notes. No previous [facility] ED visits available in [facility] for review. Laboratory Evaluation Results Procedure Component Value Ref Range Date/Time Comprehensive metabolic panel [[id number]] (Abnormal) Collected:03/03/131922 Order Status:Completed Updated:03/03/131953 Specimen Information:Blood [...] 65 U/L EGFR >60 >60 mL/min/1.73m2 Lipase [[id number]] Collected:03/03/131922 Order Status:Completed Updated:03/03/131953 Specimen Information:Blood LIPASE 177 73 - 393 U/L Urine test (LAB) [[id number]] Collected:03/03/131939 Order Status:Completed Updated:03/03/131950 Specimen Information:Urine Preg Test, Ur NEGATIVE POC clinitek 10 [[id number]] (Abnormal) Collected:03/03/131940 Order Status:Completed Updated:03/03/131943 Color, UA [...] WBC, UA NEGATIVE NEGATIVE CBC with differential [[id number]] Collected:03/03/131922 Order Status:Completed Updated:03/03/131935 Specimen Information:Blood WBC [...] Follow up With Details Comments Contact Info [facility] As needed [address] [facility] [address] [facility] EMERGENCY DEPARTMENT If symptoms worsen [address] [facility] [address] Discharge Medications: New Prescriptions DICYCLOMINE (BENTYL) 20 [...]
--- OUTSIDE RECORDS SUMMARY | ~2020-08-03 | XMS | Encounter Summary ---
Demographics + + + | Address | [address] | | | [place] [address] | + + + | Home Phone [...] Providers + +------+ + | Care Supervisor Quilting Name | Role | Phone | + +------+ + PCP | Unavailable | + +------+ + Encounter Details +--------+ + + + + | Date | Type | Department | Care Team | Description | +--------+ + + + + | 07/12/ | Hospital | [facility] | Conversion | | | 2010 | Encounter | [facility] | Transaction, | | | | | EMERGENCY CENTER | Provider Unknown | | | | | [address] | [phone] | | | | | [place] | | | | | | [address] | | | | | | [phone] | | | +--------+ + + + [...]
--- OUTSIDE RECORDS SUMMARY | ~2020-08-03 | XMS | Encounter Summary ---
Demographics + + + | Address | [address] | | | [place] [address] | + + + | Home Phone [...] Organization | [facility] [...] Providers + +------+ + | Care Public Relations Account Executive Name | Role | Phone | + +------+ + PCP | Unavailable | + +------+ + Encounter Details +--------+ + + + + | Date | Type | Department | Care Team | Description | +--------+ + + + + | 09/20/ | Hospital | [facility] | | | | 1991 | Encounter | [facility] | | | | | | HEALTH [facility] [address] | | | | | | [place], | | | | | | [place] [address] | | | | | | [phone] | | | +--------+ + + + [...]
--- OUTSIDE RECORDS SUMMARY | ~2020-08-03 | XMS | Encounter Summary ---
Demographics + + + | Address | [address] | | | [place] [address] | + + + | Home Phone [...] + + + | Author | [facility] | + + + | Organization | [facility] [employer] [facility] | + [...] Providers + +------+ + | Care Learning And Development Consultant Name | Role | Phone | [...] | Ave [facility] | [place], [place] | | | | | Health and Healing, | [address] | | | | | Building [address]th | [phone] | | | | | floor [place], [place] | | | | | | [address] | | | | | | [phone] | | | +--------+ + + + [...] 02/20/2013 1:43 PM PDTPatient seen in her [facility] for helicobacter gastritis, abdominal pain and dc'd from [facility] ED on ATBX regimen. No neurosurgical [...] sushant. She opted medical therapy through her retail stocker: increase in diamox dose; and l et [...] spots." Advised pt to go to the [facility] ED, pt states she is in [place], [place] and will go to her [facility] ED. Paged FLORA Paul and discussed documentation above. documented in this encounter Plan of Treatment Not on filedocumented as of this encounter Visit Diagnoses Not on filedocumented in this encounter
--- OUTSIDE RECORDS SUMMARY | ~2020-08-03 | XMS | Encounter Summary ---
Demographics + + + | Address | [address] | | | [place] [address] | + + + | Home Phone [...] Providers + +------+ + | Care Motor Vehicles Inspector Name | Role | Phone | + +------+ + PCP | Unavailable | + +------+ + Encounter Details +--------+ + + + + | Date | Type | Department | Care Team | Description | +--------+ + + + + | 10/02/ | Hospital | [facility] | | | | 1991 | Encounter | [facility] | | | | | | HEALTH [facility] [address] | | | | | | [place], | | | | | | [place] [address] | | | | | | [phone] | | | +--------+ + + + [...]
--- OUTSIDE RECORDS SUMMARY | ~2020-08-03 | XMS | Encounter Summary ---
Demographics + + + | Address | [address] | | | [place] [address] | + + + | Home Phone [...] | Author | [facility] [employer] [facility] | + + + | Organization | [facility] [employer] [facility] | + + [...] Providers + +------+ + | Care Sales Attendant Building Materials Name | Role | Phone | + [...] | | | Ave [facility] for | [place], [place] | | | | | Health and Healing, | [address] | | | | | Building , | [phone] | | | | | floor [place], [place] | | | | | | [address] | | | | | | [phone] | | | +--------+ + + + [...] at times she is confused. Per Dr. Notrh notes, Annabella has been to 2 ED facilities already. I encouraged her to return to [place] to be seen in our ED by the neurosurgeons natural resource economist. I explained that this was a n occasion that we are unable to treat on the phone. She will call for transportation and if this is not resolved will look into returning to [facility] on Tuesday. do cumented in this encounter Plan of Treatment Not on filedocumented as of this encounter Visit Diagnoses Not on filedocumented in this encounter"
--- OUTSIDE RECORDS SUMMARY | ~2020-08-03 | XMS | Encounter Summary ---
Demographics + + + | Address | [address] | | | [place] [address] | + + + | Home Phone [...] + | Author | [facility] [employer] [facility] | + + + | Organization | [facility] [employer] [facility] [...] Team Providers + +------+ + | Care Circus Laborer Name | Role | Phone | [...] | | | | | | [address] [place], [place] | | | | | | [address] | | | | | | [phone] | | | +--------+ + + + [...]
--- OUTSIDE RECORDS SUMMARY | ~2020-08-03 | XMS | Encounter Summary ---
Demographics + + + | Address | [address] | | | [place] [address] | + + + | Home Phone [...] | Author | [facility] [employer] [facility] | + + + | Organization | [facility] [employer] [facility] | + [...] Providers + +------+ + | Care Silo Painter Name | Role | Phone | + +------+ + | Brenden Benavides MD | PCP | | + +------+ + Encounter Details +--------+ + + + + | Date | Type | Department | Care Team | Description | +--------+ + + + + | 01/05/ | Telephone | [facility] | Brad Currie MD | | | 2006 | | Era | | | | | | Neuro-Ophthalmology | | | | | | [address] [facility] | | | | | | Mailcode: PATTI | | | | | | [place] [address] | | | | | | [phone] | | | +--------+ + + + [...] have given i t to her transportation sales consultant. I apologized and informed her that we [...]
--- OUTSIDE RECORDS SUMMARY | ~2020-08-03 | XMS | Encounter Summary ---
Demographics + + + | Address | [address] | | | [place] [address] | + + + | Home Phone [...] Providers + +------+ + | Care Program Technician Name | Role | Phone | + +------+ + PCP | Unavailable | + +------+ + Encounter Details +--------+ + + + + | Date | Type | Department | Care Team | Description | +--------+ + + + + | 10/10/ | Hospital | [facility] | | | | 1991 | Encounter | [facility] | | | | | | HEALTH [facility] [address] | | | | | | [place], | | | | | | [place] [address] | | | | | | [phone] | | | +--------+ + + + [...]
--- OUTSIDE RECORDS SUMMARY | ~2020-08-03 | XMS | Encounter Summary ---
Demographics + + + | Address | [address] | | | [place] [address] | + + + | Home Phone [...] Providers + +------+ + | Care Library Media Specialist Name | Role | Phone | [...] left hand | [address] | | | | n | Weakness of | [address] | [place], | | | | | both hands | [place], | [place] [address] | | | | | [place] left | [place] [address] | Phone: | | | | | wrist Pain | Phone: | [phone] | | | | | of right | [phone] | Fax: | | | | | thumb | Fax: | [phone] | | | | | Trigger | [phone] | | | | | | finger of | | | | | | | right thumb | | | | | | | Procedures | | | | | | | SC MOTOR | | | | | | | &/SENS /> | | | | | | | NRV CNDJ | | | | | | | PRECONF | | | | | | | ELTRODE LIMB | | | | | | | SC NEEDLE | | | | | | [...] | | | | | Trigger | [address] | [address] | | | | | finger of | [place], | [place] | | | | | right thumb | [place] [address] | [address] | | | | | | Phone: | Phone: | | | | | | [phone] | [phone] | | | | | | Fax: | Fax: | | | | | | [phone] | [phone] | +--------+ + + + + + [...] | | Rehabilitatio | tunnel | PA-C [address] | [address] | | | | n | syndrome on | | [place], | | | | | left | [place] | [place] [address] | | | | | | WAY | Phone: | | | | | | [place], | [phone] | | | | | | [place] [address] | Fax: | | | | | | Phone: | [phone] | | | | | | [phone] | | | | | | | Fax: | | | | | | | [phone] | | +--------+--------+ + + + + Encounter Details +--------+---------+ + + + | Date | Type | Department | Care Team | Description | +--------+---------+ + + + | 01/03/ | Office | [facility] | Amanuel Jennings, | Numbness of left | | 2018 | Visit | PHYSIATRY [address] | MD [address] | hand (Primary Dx); | | | | [address] | [place], [place] | Weakness of both | | | | [place], [place] | [address] | hands; Mass of left | | | | [address] | | wrist; Pain of right | | | | [phone] | | thumb; Trigger | | | [...] encounter Patient Instructions Patient Instructions Adelaide Santa, Ordnance Officer - 01/03/2019 1:00 PM PSTConmaurice t o [...] Annabella Au reports left hand weakness. Annabella uA reports rig ht first digit trigger finger. [...] Diabetes mellitus type 2 in obese ([facility]) Gastroesophageal reflux disease Heroin dependence ([facility]) Hoarse Hypertensive disorder Insomnia with sleep apnea IV drug abuse ([facility]) Low back strain Numbness of left hand Obstructive sleep apnea of adult Opioid dependence on agonist therapy ([facility]) Other chronic pain Panic disorder without agoraphobia with severe panic attacks Polysubstance dependence ([facility]) Sedative, hypnotic or anxiolytic dependence, in remission ([facility]) Tobacco user Trigger finger of right hand [...] wrist dorsiflexion , finger abduction, and right manager graphic. 4/5 hand manager graphic on the left Reflexes: 2+ normal and [...] scribed by in my presence, Adelaide Santa, Ordnance Officer and are both accurate and comp lete. [...]
--- OUTSIDE RECORDS SUMMARY | ~2020-08-03 | XMS | Clinical Summary ---
Demographics + + + | Address | [address] | | | [place] [address] | + + + | Home Phone [...] Team Providers + +------+ + | Care Aquarist Name | Role | Phone | + +------+ + | Dennis Maddox | PCP | | + +------+ + Source Comments REBECA is fully live on both [facility] and [facility] InPatient.[facility] Allergies + + + + + [...] | | | | vaccination (#1) | 0 | | | + + +-------+ + [...] +--------+ | MEDICAID [place] | OHP | [id number] | | [phone] | [address] | Medica | | | PLUS | | [phone] | id | | | OPEN | | esent | | [place], [place] | | | | CARD | | | | [id number] | | + +--------+ +--------+ + +--------+ [...] | 1975 | [phone] | [place] [address] | | | rene | | | 9 (Home) | | + +--------+ +--------+ + + Advance Directives + + + + + | Type | Date Recorded | Patient | Explanation | | | | Sales Service Supervisor | | + + + + + | Advance | | | | | Directives and | | | | | Living Will | | | | + + + + + | Power of | | | | | Dry Cleaning Supervisor | | | | + + [...]
--- OUTSIDE RECORDS SUMMARY | ~2020-08-03 | XMS | Encounter Summary ---
Demographics + + + | Address | [address] | | | [place] [address] | + + + | Home Phone [...] Team Providers + +------+ + | Care Coin Machine Servicer Repairer Name | Role | Phone | + +------+ + PCP | Unavailable | + +------+ + Encounter Details +--------+ + + + + | Date | Type | Department | Care Team | Description | +--------+ + + + + | 07/24/ | Hospital | [facility] | | | | 1990 | Encounter | MED CTR EMERGENCY | | | | | | CENTER [address] | | | | | | [place] | | | | | | [address] | | | | | | [phone] | | | +--------+ + + + [...]
--- OUTSIDE RECORDS SUMMARY | ~2020-08-03 | XMS | Encounter Summary ---
Demographics + + + | Address | [address] | | | [place] [address] | + + + | Home Phone [...] Team Providers + +------+ + | Care Compliance Review Officer Name | Role | Phone | + +------+ + PCP | Unavailable | + +------+ + Encounter Details +--------+ + + + + | Date | Type | Department | Care Team | Description | +--------+ + + + + | 08/12/ | Hospital | [facility] | Jenn Oreilly, | | | 2012 | Encounter | HOSPITAL EMERGENCY | SOFTWARE QUALITY ENGINEER [address] | | | | | CENTER [address] | [place] | | | | | [address] [place] | [id number] | | | | | [address] | | | | | | [phone] | | | +--------+ + + + [...]
--- OUTSIDE RECORDS SUMMARY | ~2020-08-03 | XMS | Encounter Summary ---
Demographics + + + | Address | [address] | | | [place] [address] | + + + | Home Phone [...] + | Author | [facility] [employer] [facility] | + + + | Organization | [facility] [employer] [facility] | [...] Team Providers + +------+ + | Care Import Export Manager Name | Role | Phone | [...] | | [address] Mailcode:OP14B | [place], | | | | | [place] | [place] [address] | | | | | [place], [place] | | | | | | [address] | | | | | | [phone] | | | +--------+ + + + [...]
--- OUTSIDE RECORDS SUMMARY | ~2020-08-03 | XMS | Encounter Summary ---
Demographics + + + | Address | [address] | | | [place] [address] | + + + | Home Phone [...] Author | [facility] [facility] | + + + | Organization | [facility] [employer] [facility] [...] Team Providers + +------+ + | Care Block Machine Operator Name | Role | Phone [...] Erroneous Encounter | | 2007 | | [place] [facility] | [facility] | - Disregard | | | | and Healing [address] | Neurosurgery [address] | | | | | [address] [facility] | [address] | | | | | Health and Healing, | [place], [place] | | | | | [facility] [address] | [address] | | | | | Floor [place], [place] | | | | | | [address] | | | | | | [phone] | | | +--------+ + + + [...] - Kiki Rosen - 08/14/2008 8:07 PM [id number] Nessa berman signed by Kiki Rosen at 08/14/2008 8:07 PM PDTdocumented in this encounter Plan of Treatment Not on filedocumented as of this encounter Visit Diagnoses Not on filedocumented in this encounter"
--- OUTSIDE RECORDS SUMMARY | ~2020-08-03 | XMS | Encounter Summary ---
Demographics + + + | Address | [address] | | | [place] [address] | + + + | Home Phone [...] Team Providers + +------+ + | Care Bench Chemist Name | Role | Phone | + +------+ + PCP | Unavailable | + +------+ + Encounter Details +--------+ + + + + | Date | Type | Department | Care Team | Description | +--------+ + + + + | 06/20/ | Hospital | [facility] | Yovanny Suazo, | | | 1991 | Encounter | MED CTR [facility] | MD [address] | | | | | HEALTH SVCS [address] | [address] [facility] | | | | | [place], | [place] [address] | | | | | [place] [address] | [phone] | | | | | [phone] | | | +--------+ + + + [...]
--- OUTSIDE RECORDS SUMMARY | ~2020-08-03 | XMS | Encounter Summary ---
Demographics + + + | Address | [address] | | | [place] [address] | + + + | Home Phone [...] Author | [facility] [employer] [facility] | + + + | Organization | [facility] [employer] [facility] [...] Team Providers + +------+ + | Care Banquet Attendant Name | Role | Phone | + +------+ + | Dennis Maddox | PCP | | + +------+ + Encounter Details +--------+ + + + + | Date | Type | Department | Care Team | Description | +--------+ + + + + | 02/28/ | Emergency | [facility] Emergency | | | | 2013 - | | Department [address] | | | | | [address] | | | | 03/01/ | | [facility] | | | | 2013 | | [place], [place] | | | | | | [address] | | | | | | [phone] | | | +--------+ + + + [...] 11:55 PM PDTBoth 's were advised that [facility] I S CURRENTLY AT CAPACITY FOR ALL [...]
--- OUTSIDE RECORDS SUMMARY | ~2020-08-03 | XMS | Encounter Summary ---
Demographics + + + | Address | [address] | | | [place] [address] | + + + | Home Phone [...] [facility] | + + + | Organization | [facility] [employer] [facility] | + [...] Team Providers + +------+ + | Care Sharepoint Administrator Name | Role | Phone | [...] | | | | | Physician's | [place], [place] | | | | | [place], 2nd floor | [address] | | | | | [place], [place] | [phone] | | | | | [address] | | | | | | [phone] | | | +--------+ + + + [...]
--- OUTSIDE RECORDS SUMMARY | ~2020-08-03 | XMS | Encounter Summary ---
Demographics + + + | Address | [address] | | | [place] [address] | + + + | Home Phone [...] Providers + +------+ + | Care Youth Development Specialist Name | Role | Phone | [...] W | | | | | | [place], | | | | | | [place] [address] | | | | | | [phone] | | | +--------+ + + + [...]
--- OUTSIDE RECORDS SUMMARY | ~2020-08-03 | XMS | Encounter Summary ---
Demographics + + + | Address | [address] | | | [place] [address] | + + + | Home Phone [...] Providers + +------+ + | Care Credit Union Examiner Name | Role | Phone | [...] | | | | EMERGENCY CENTER | [place] [address] | | | | | [address] | [phone] | | | | | [place] | | | | | | [address] | | | | | | [phone] | | | +--------+ + + + [...] as of this encounter ED Notes Maryellen Ramos, LAW ENFORCEMENT DIRECTOR - 10/03/2013 12:05 AM [facility] PATIENT NAME: ANNABELLA STEWART TREATMENT DATE: 07/17/2011 ADMISSION DATE: 07/17/2011 Age/Sex: 35Y / F : 1975 [id number] / [id number] CHIEF COMPLAINT: Anxiety. HISTORY OF PRESENT ILLNESS: [...] saturatio ns 95% on room air. INTEGUMENT: Riggins, warm and dry. No lesions, lacerations or abrasions. HEENT: Normocephalic, atraumatic. Pupils are equal, round, and reactive to light and accomm odation. EOMs are intact. MUSCULOSKELETAL: Moves all extremities well. HEART: Regular rate and rhythm. LUNGS: Clear. ABDOMEN: Benign. GENITOURINARY/RECTAL: Deferred. MINTHORN,S YLVIA S ADM:07/17/11 [id number] [facility] ER EMERGENCY DEPARTMENT RECORD [facility] JASPER Dorantes E-Sign: [facility] MD Lizeth Smith THIS REPORT IS CONFIDENTIAL AND NOT TO BE RELEASED WITHOUT PROPER AUTHORIZATION. [facility] NEUROLOGIC: Intact. PSYCHIATRIC: Calm and cooperative. [...] Discharged stable. JASPER Mc MD P [facility] #[id number] cc: MD Maryellen Parker ARNP Electronically Signed 07/20/11 0136 Domingo Darby MD MINTHORN,S ANGLEA S ADM:07/17/11 [id number] [facility] ER EMERGENCY DEPARTMENT RECORD [facility] JASPER Dorantes E-Sign: [facility] MD Lizeth Smith THIS REPORT IS CONFIDENTIAL AND NOT TO BE RELEASED WITHOUT PROPER AUTHORIZATION.Electronica lly signed by JASPER Mc at 10/03/2013 10:53 AM PSTdocumented in this encounter Plan of Treatment Not on filedocumented as of this encounter Visit Diagnoses Not on filedocumented in this encounter"
--- OUTSIDE RECORDS SUMMARY | ~2020-08-03 | XMS | Encounter Summary ---
Demographics + + + | Address | [address] | | | [place] [address] | + + + | Home Phone [...] + | Organization | [facility] | [...] Providers + +------+ + | Care Events Manager Name | Role | Phone | + +------+ + PCP | Unavailable | + +------+ + Encounter Details +--------+ + + + + | Date | Type | Department | Care Team | Description | +--------+ + + + + | 07/06/ | Hospital | [facility] | Mirna Lambert | | | 2007 | Encounter | MED CTR EMERGENCY | MD [address] | | | | | CENTER [address] | [facility], | | | | | [place], [place] | [place] [address] | | | | | [address] | [phone] | | | | | [phone] | | | +--------+ + + + [...]
--- OUTSIDE RECORDS SUMMARY | ~2020-08-03 | XMS | Encounter Summary ---
Demographics + + + | Address | [address] | | | [place] [address] | + + + | Home Phone [...] + | Author | [facility] | + + + | Organization | [facility] | [...] Team Providers + +------+ + | Care Audioprosthologist Name | Role | Phone | + [...] + + | 08/24/ | Emergency | [facility] Emergency | Tylor Mcclellan, | | | 2010 | | Department [address] | Lala Cruz | | | | | [address] | MD Joey [address] | | | | | [facility] | Dilshad Sandra Maloney | | | | | [place], [place] | [place], [place] | | | | | [address] | [address] | | | | | [phone] | [phone] | | | | | | | [...] sheath fenestrat ion (by Dr. Hughes at [facility] in 2006) and s/p lumboperitoneal shunt [...] worth. She has not seen a n client director in years - last dilated exam was several years ago. Per chart review, pt used to be followed by Dr. Currie at [facility] neuro-op; last seen in 02/2007 w hen she was on Diamox 500mg BID. 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 Prior to her ONSF OS, she was on Diamox 1000mg BID. POH: Pseudotumor cerebri dx [address] Currie at [facility] (last seen 02/2007) S/p ONSF OS [...] sheath fenestra tion (by Dr. Hughes at [facility] in 2006) and s/p lumboperitoneal shunt [...] shunt revision -Follow-up with Dr. Klein at [facility] ([facility] at [facility]) on TuesdayAugust 30 at 8:30am ([phone]). Eric Klein MD Resident Physician [facility] 08/24/2011 Patient seen and evaluated with attending physician, Dr. Funmilayo Osorio, who agrees with the [facility] findings and plan. Faculty Staffing Note: Personally repeated jade elements of history and physical and agree with documentation by e resident on this progress note. Assisted Resident and conferred with patient in regards to diagnosis and management plan. Funmilayo Osorio MD Coronary Clinical Specialist [facility] ang, Rach Waters MD - 08/24/2011 11:23 [...] clinic in next week. 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 Pt shunt placed in 2005 NS here. Has been seen in last 2weeks for same x2ed v isits [place]. Pt was told based upon xrays done in the ED 2wks ago her shunt is "out." As such she was told to come to "[facility] ED for eval by my neurosurgeon." [...] exam findings to suggest menengitis or other STAFFING ASSOCIATE infection. No history of immune compromise.CVT was [...] been in in hospital with mother in [place]. Pt reports her local hospital in [facility] is not equipped to handle current. 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 Has had in place for 4 years w/o problem. Tuesday fever to 102. Now low back pain radiating around to front. Drove from [facility] to see Neuro as recommended [...] note. SBAR given to Dr. Lewis @ [facility] pending final neurosurgical recs for displaced [...] | NEUROSURGERY CONSULT HISTORY AND PHYSICAL Author: HYNU | | | MD HAM Attending Physician: [...]
--- OUTSIDE RECORDS SUMMARY | ~2020-08-03 | XMS | Encounter Summary ---
Demographics + + + | Address | [address] | | | [place] [address] | + + + | Home Phone [...] + | Author | [facility] | + + + | Organization | [facility] [employer] [facility] | + + + | Address | Unknown | + + + | Phone | Unavailable | + + + Support + + +---------+ + | Name | Relationship | Address | Phone | + + +---------+ + | Ruby Au | ECON | Unknown | | + + +---------+ + Care Team Providers + +------+ + | Care Flatwork Presser Name | Role | Phone | + +------+ + | Dennis Maddox | PCP | | + +------+ + Encounter Details +--------+ + + + + | Date | Type | Department | Care Team | Description | +--------+ + + + + | 03/15/ | Telephone | [facility] | Ronaldo Martin MD | | | 2012 | | [place]/[facility]hthalmol | [facility] | | | | | ogjaneen at [facility] [address] | [address] [place] [address] | | | | | [place] [facility] | [place] [address] | | | | | Health and Healing, | [phone] | | | | | [facility] | | | | | | Floor [place], [place] | | | | | | [address] | | | | | | [phone] | | | +--------+ + + + [...]
--- OUTSIDE RECORDS SUMMARY | ~2020-08-03 | XMS | Clinical Summary ---
Demographics + + + | Address | [address] | | | [place] [address] | + + + | Home Phone [...] Team Providers + +------+ + | Care Injection Molding Machine Operator Name | Role | Phone | + +------+ + | Amadna Herzog PA-C | PCP | | + [...] | + + + +---------+------+------+-------+ | | Take 1 tablet by | 30 | 0 | 09/0 | | Activ | | oxyCODONE-acetaminop | mouth every 8 hours | tablet | | 3/20 | | e | | hen (PERCOCET) | as needed for Pain. | | | 20 | | | | 10-325 mg per tablet | | | | | | | + + + +---------+------+------+-------+ | naloxone (NARCAN) | 1 spray by Nasal | 2 each | 0 | 09/0 | | Activ | | 4 mg/nasal spray | route as needed for | | | 3/20 | | e | | | Decreased | | | 20 | | | | | Responsiveness. | | | | | | + [...] + + | 07/31/ | Emergency | Emergency Medicine | Brad Anguiano | Chest wall trauma, | | 2019 | | | Jorge Fish MD | subsequent encounter | | | | | | (Primary Dx); | | | | | | Opioid dependence | | | | | | with opioid-induced | | | | | | disorder (HCC) | +--------+ + + + + from Last 3 Months Immunizations + + + + | Name | Administration Dates | Next Due | + + + + | KATARZYNA PF | 11/03/2011 | | | TRIVALENT | | | | INTRADERMAL | | | + + + + | INFLUENZA PF | 08/26/2015, 09/22/2010 | | | TRIVALENT(PED/ADOL/A | | | | DULT)DAIANAKT | | | + + + + [...] | 11, | | | | | 11/03/20 | | | | | 11, | | | | | Addition | | | | | al | | | | | history | | | | | exists | | + + + + + | Med Mgmt: Cr | | 07/31/20 | | | | 1 | 20, | | | | | 05/27/20 | | | | | 17, | | | | | 05/27/20 | | | | | 17 | | + + + + + | Med Mgmt: K | | 07/31/20 | | | | 1 | 20, | | | | | 05/27/20 | | | | | 17, | | | | | 05/27/20 | | | | | 17 | | + + + + + | Med Mgmt: eGFR | | 07/31/20 | | | | 1 | 20, | | | | | 05/27/20 | | | | | 17, | | | | | 05/27/20 | | | | | 17 | | + + + + + | Vaccine: | | 06/27/20 | | | Dtap/Tdap/Td (3 - | 9 | 19, | | | Td) | | 03/25/20 | | | | | 14 | | + + + + + Procedures + +--------+ + + + | [...] | | n - | | | 09/03/ | | | 2020 | | | 11:47 | | | [...] | | | FICATI | | | ON?09/ | | | 03/202 | | | 0 | | | 11:45? | | | MINTHO | | | RN, | | | ANNABELLA | | | | | | S?MRN: | | | | | | [id number] | | | [id number] | | | riteri | | | [...] | | | ics | | | 7/2/20 | | | 3:52 | | | PM [facility] | | [facility] | | | [place] | | | y | | | [...] | | | St. | | | [place] | | | y | | | [...] | | | St. | | | [place] | | | y | | | Hospit | | | alHX:? | | | OPIOD | | | | | | OVERDO | | | SESFla | | | gs | | | [place] | | | ED | | | Dispar | | | ity | | | Measur | | | e - | | | [place] | | | has | | | [...] | | | s. | | | [place] | | | | | | Health [...] | | | By: | | | [place] | | | | | | Health | | | | | | Author | | | ity | | | (OHA) | | | / | | | Attrib | | | uted | | | On: | | | 01/14/ | | | 2020 | | | [...] | | | St. | | | [place] | | | y | | | [...] | | | St. | | | [place] | | | y H. | | [...] | | | St. | | | [place] | | | y H. | | [...] | | | St. | | | [place] | | | y H. | | [...] | | | St. | | | [place] | | | y H. | | [...] | | | St. | | | [place] | | | y H. | | [...] | | | St. | | | [place] | | | y H. | | [...] | | | St. | | | [place] | | | y H. | | [...] | | | St. | | | [place] | | | y H. | | [...] | | | St. | | | [place] | | | y H. | | [...] | | | St. | | | [place] | | | y H. | | [...] | | | [email or web address] | | | [id number] | | | | | | PLEASE [...] | | | ed.? | | | 2019 | | | Collec | | | tive | | | Medica | | | l | | | Techno | | | logies | | | , Inc. | | | - | | | [email or web address] | | | llecti | | | vemedi | | | maria [email or web address] | | | m | +---+--------+ from Last [address] Chest Abdomen Pelvis w Contrast [...] Procedure Note | + + | Neal, [id number] - 07/31/2020 3:[address] CHEST [...] fracture criteria but remain atypical.Electronically signed by [place] | | MD Moi 07/31/2020 3:08 PM [...] | | | | | | [employer] | | | | | [...] [address] | [place] | [phone] | | [facility] | | [address] | | | - LABORATORY | | [...] | | Time | | seconds | [facility] | | | | [...] [address] | [place] | [phone] | | [facility] | | [address] | | | - LABORATORY | | [...] | | Cells | | | [facility] | | | | | | MEDICAL | | | | | | CENTER - | | | | | | LABORATORY | | + + + + + + | Red Blood | 3.99 | 3.70 - 5.20 | [facility] | | | Cells | | M/uL | [facility] | | | | [...] | | Neutrophils | | | [facility] | | [...] | | Neutrophils | | K/uL | [facility] | | | | [...] | patients, use | K/uL | [facility] | | | Granulocyte | the special [...] ranges: Trim. Absolute (K/uL) Percentage (%) | [facility] | | 1st 0.003-0.091 K/uL 0.0-0.9% 2nd 0.007-0.247 K/uL [facility] | | 0.1-2.0% [facility] 0.018-0.456 K/uL 0.1-2.0% | - LABORATORY | + + + + + + + + | Performing | Address | City/State/Zipcode | Phone Number | | Organization | | | | + + + + + | [facility] | [address] | [place] | [phone] | | [facility] | | [address] | | | - LABORATORY | | [...] use as of January 24, | | [facility] | | | | 2018. Check reference [...] [address] | [place] | [phone] | | [facility] | | [address] | | | - LABORATORY | | [...] in | 12 - 53 U/L | [place] | | | | use as of January 24, | | [facility] | | | | 2018. Check reference [...] [address] | [place] | [phone] | | [facility] | | [address] | | | - LABORATORY | | [...] | | | | | mmol/L | [facility] | | | | [...] 10 | 9 - 23 mg/dL | [facility] | | | | | | [facility] | | | | | | MEDICAL | | | | | | CENTER - | | | | | | LABORATORY | | + + + + + + | Creatinine | 0.99 | 0.55 - 1.02 | [facility] | | | | | mg/dL | [facility] | | | | | | MEDICAL | | | | | | CENTER - | | | | | | LABORATORY | | + + + + + + | eGFR, | >60Comment: GLOMERULAR | >=60 | [facility] | | | non- | FILTRATION | mL/min/1.73m2 | [facility] | | | Syrian | RATE,ESTIMATED | | MEDICAL | | | | mL/min/1.34l4Bqye than | | CENTER - | | | | 60 Chronic kidney | | LABORATORY | | | | disease,if found over a | | | | | | 3-month period.Less than | | | | | | 15 Kidney failure | | | | + + + + + + | eGFR, | >60Comment: GLOMERULAR | >=60 | [facility] | | | | FILTRATION | mL/min/1.73m2 | [facility] | | | Syrian | RATE,ESTIMATED | | MEDICAL | | | | mL/min/1.11h0Tknd than | | CENTER - | | | | 60 Chronic kidney | | LABORATORY | | | | disease,if found over a | | | | | | 3-month period.Less than | | | | | | 15 Kidney failure | | | | + + + + + + | Calcium | 8.9 | 8.7 - 10.4 | [facility] | | | | | mg/dL | [facility] | | | | | | MEDICAL | | | | | | CENTER - | | | | | | LABORATORY | | + + + + + + | Albumin | 4.1 | 3.2 - 4.8 g/dL | [facility] | | | | | | [facility] | | | | | | [...] | ine Ratio | | | [facility] | | | | | | [...] + | [facility] | [address] | [place] | [phone] | | [facility] | | [address] | | | - LABORATORY | | [...] | | | | GALDINO KRAUSE MD ([id number]) | | | | | | on [...] Procedure Note | + + | Neal, [id number] - 07/31/2020 2:04 PM PDT AP CHEST [...] | | | + +---------+ + + from Last 3 Months Insurance + +--------+ +--------+ [...] +---------+--------+ | [place] | MEDICA | [id number] | 11/09/ | [phone] | | Medica | | | ID [place] | | 2018-P | 2 | | id | | | PLUS | | resent | | | | + +--------+ +--------+ +---------+--------+ | [facility] | IHS | [id number] | 11/08/ | | | Eyaln | | SERVICE | YELLOW | | [...] | 1975 | [phone] | [place] [address] | | | rene | | | 5 (Home) | | + +--------+ +--------+ + + | RoeAnnabella Jt | Person | Self | [birth year] | | [address] | | | al/Fam | | 1975 | [phone] | [place] [address] | | | rene | | | 5 (Home) | | + +--------+ +--------+ + + Advance Directives + + + + + | Type | Date Recorded | Patient | Explanation | | | | Toll Mechanic | | + + + + + | Power of | | | | | Reflesher | | | | + + + + + | Advance | 07/31/2020 3:17 | | | | Directive | PM | | | + + + + +
--- OUTSIDE RECORDS SUMMARY | ~2020-08-03 | XMS | Encounter Summary ---
Demographics + + + | Address | [address] | | | [place] [address] | + + + | Home Phone [...] | [facility] Service[facility] | + + + | Organization | [facility] [employer] [facility] [...] Providers + +------+ + | Care Project Management Professional Name | Role | Phone | [...] Papilledema | | 2006 | Visit | [place] | [address] | Associated with | | | | Oculoplastics at | [place], [place] | Increased | | | | [place] [address] [address] | [address] | Intracranial | | | | [address] | [phone] | Pressure; 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
--- OUTSIDE RECORDS SUMMARY | ~2020-08-03 | XMS | Encounter Summary ---
Demographics + + + | Address | [address] | | | [place] [address] | + + + | Home Phone [...] + | Author | [facility] | + + + | Organization | [facility] [employer] [facility] | [...] Team Providers + +------+ + | Care Generator Worker Name | Role | Phone | [...] ) | | | | Physician's | [place], [place] | | | | | [facility] | [address] | | | | | [place], [place] | [phone] | | | | | [address] | | | | | | [phone] | | | +--------+ + + + [...] AM PDTPt states that her bed at [facility] on the floor. She is requesting that Dr. Pedroza write her a prescription for a hosptial bed so she can have it after her surgery on Tuesday05/07/08. If the prescription is approved, please fax to attn: Jessenia [phone]. Please call pt back on her cell phone if approved or denied. She is hoping to get the bed r equested stanislav since surgery is on Tuesday. 08 10:35 AM PDTdocumented in this encounter Plan of Treatment Not on filedocumented as of this encounter Visit Diagnoses Not on filedocumented in this encounter"
--- OUTSIDE RECORDS SUMMARY | ~2020-08-03 | XMS | Encounter Summary ---
Demographics + + + | Address | [address] | | | [place] [address] | + + + | Home Phone [...] Author | [facility] | + + + | Organization | [facility] [employer] [facility] | + + [...] Providers + +------+ + | Care Cell Stripper Final Name | Role | Phone | + [...] | Health and Healing, | [facility] | | | | | Building | [place], [place] | | | | | floor [place], [place] | [address] | | | | | [address] | | | | | | [phone] | | | +--------+---------+ + + + [...]
--- OUTSIDE RECORDS SUMMARY | ~2020-08-03 | XMS | Encounter Summary ---
Demographics + + + | Address | [address] | | | [place] [address] | + + + | Home Phone [...] | Author | [facility] [employer] [facility] | + + + | Organization | [facility] [employer] Science [facility] [...] Team Providers + +------+ + | Care Reversing Mill Roller Name | Role | Phone | [...] | | | | | hypertension | [place], [place] | [place], [place] | | | | | Procedures | [address] | [address] | | | | | REQUEST TO | Phone: | Phone: | | | | | SURGERY | [phone] | [phone] | | | | | SPECIAL INVESTIGATOR | Fax: | Fax: | | | | | [facility] | [phone] | [phone] | | | | | SPINAL | [...] | [facility] | [place], [place] | | | | | Health and Healing, | [address] | | | | | [facility] | [phone] | | | | | floor [place], [place] | | | | | | [address] | | | | | | [phone] | | | +--------+ + + + [...]
--- OUTSIDE RECORDS SUMMARY | ~2020-08-03 | XMS | Encounter Summary ---
Demographics + + + | Address | [address] | | | [place] [address] | + + + | Home Phone [...] + + | Author | [facility] | + + + | Organization | [facility] [employer] [facility] [...] Providers + +------+ + | Care Development And Planning Engineer Name | Role | Phone | [...] [facility] [address] | [address] | (Primary Dx) | | | | Ave Center for | [place], [place] | | | | | Health and Healing, | [address] | | | | | [facility] | [phone] | | | | | floor [place], [place] | | | | | | [address] | | | | | | [phone] | | | +--------+---------+ + + + [...]
--- OUTSIDE RECORDS SUMMARY | ~2020-08-03 | XMS | Encounter Summary ---
Demographics + + + | Address | [address] | | | [place] [address] | + + + | Home Phone [...] Providers + +------+ + | Care Order Planner Name | Role | Phone | + +------+ + PCP | Unavailable | + +------+ + Encounter Details +--------+ + + + + | Date | Type | Department | Care Team | Description | +--------+ + + + + | 09/03/ | Hospital | [facility] | | | | 1991 | Encounter | [facility] | | | | | | [facility] [address] | | | | | | [place], | | | | | | [place] [address] | | | | | | [phone] | | | +--------+ + + + [...]
--- OUTSIDE RECORDS SUMMARY | ~2020-08-03 | XMS | Encounter Summary ---
Demographics + + + | Address | [address] | | | [place] [address] | + + + | Home Phone [...] Team Providers + +------+ + | Care Wool Washing Machine Operator Name | Role | Phone | + +------+ + PCP | Unavailable | + +------+ + Encounter Details +--------+ + + + + | Date | Type | Department | Care Team | Description | +--------+ + + + + | 09/27/ | Hospital | [facility] | | | | 1991 | Encounter | [facility] | | | | | | [facility] [address] | | | | | | [place], | | | | | | [place] [address] | | | | | | [phone] | | | +--------+ + + + [...]
--- OUTSIDE RECORDS SUMMARY | ~2020-08-03 | XMS | Encounter Summary ---
Demographics + + + | Address | [address] | | | [place] [address] | + + + | Home Phone [...] + + | Author | [facility] | + + + | Organization | [facility] [facility] [...] Providers + +------+ + | Care Fancy Stitcher Name | Role | Phone | + +------+ + | Brenden Benavides MD | PCP | | + +------+ + Encounter Details +--------+ + + + + | Date | Type | Department | Care Team | Description | +--------+ + + + + | 09/28/ | Documentati | [facility] | Brad Currie MD | | | 2006 | on | [place] | | | | | | Neuro-Ophthalmology | | | | | | [address] | | | | | | Mailcode: PATTI | | | | | | [place] [address] | | | | | | [phone] | | | +--------+ + + + [...] Brad Currie MD Neuro-Ophthalmology and Cerebrovascular Disease Plate Put In Worker of Ophthalmology, Neurology, and Neurosurgery documented in this encounter Plan of Treatment Not on filedocumented as of this encounter Visit Diagnoses Not on filedocumented in this encounter"
--- OUTSIDE RECORDS SUMMARY | ~2020-08-03 | XMS | Encounter Summary ---
Demographics + + + | Address | [address] | | | [place] [address] | + + + | Home Phone [...] | Author | [facility] [employer] [facility] | + + + | Organization | [facility] [employer] [facility] | + + [...] Providers + +------+ + | Care Patent Examiner Name | Role | Phone | [...] | | [facility] | [place], [place] | | | | | Health and Healing, | [address] | | | | | [facility] | [phone] | | | | | floor [place], [place] | | | | | | [address] | | | | | | [phone] | | | +--------+ + + + [...] refill of Xanax 1mg [facility] to [facility] [phone] signed by Monica sykes at 05/01/2008 2:11 PM PDTdocumented in this encounter Plan of Treatment Not on filedocumented as of this encounter Visit Diagnoses Not on filedocumented in this encounter"
--- OUTSIDE RECORDS SUMMARY | ~2020-08-03 | XMS | Encounter Summary ---
Demographics + + + | Address | [address] | | | [place] [address] | + + + | Home Phone [...] Author | [facility] [employer] [facility] | + + + | Organization | [facility] [employer] [facility] [...] Providers + +------+ + | Care Clinical Product Manager Name | Role | Phone [...] | Headache | | 2015 | | [place] | MD [address] | | | | | Neuro-Ophthalmology | [facility] [place] | | | | | at [facility] [address] | [address] | | | | | Ave [facility] | [phone] | | | | | Health and Healing, | | | | | | | | | | | | Floor [place], [place] | | | | | | [address] | | | | | | [phone] | | | +--------+ + + + [...] to do. She agreed. She lives in [place] and wi ll head to ER close [...]
--- OUTSIDE RECORDS SUMMARY | ~2020-08-03 | XMS | Encounter Summary ---
Demographics + + + | Address | [address] | | | [place] [address] | + + + | Home Phone [...] Providers + +------+ + | Care Set Up Worker Name | Role | Phone | + +------+ + PCP | Unavailable | + +------+ + Encounter Details +--------+ + + + + | Date | Type | Department | Care Team | Description | +--------+ + + + + | 10/04/ | Hospital | [facility] | | | | 1991 | Encounter | [facility] | | | | | | [facility] [address] | | | | | | [place], | | | | | | [place] [address] | | | | | | [phone] | | | +--------+ + + + [...]
--- OUTSIDE RECORDS SUMMARY | ~2020-08-03 | XMS | Encounter Summary ---
Demographics + + + | Address | [address] | | | [place] [address] | + + + | Home Phone [...] Providers + +------+ + | Care Beam Carrier Hauler Pusher Name | Role | Phone | [...] | | | CENTER [address] | [facility] | | | | | [address] [place] | [place] [address] | | | | | [address] | [phone] | | | | | [phone] | | | +--------+ + + + [...]
--- OUTSIDE RECORDS SUMMARY | ~2020-08-03 | XMS | Encounter Summary ---
Demographics + + + | Address | [address] | | | [place] [address] | + + + | Home Phone [...] + | Author | [facility] | + + + | Organization | [facility] [employer] [facility] | + [...] + +------+ + | Care Assisted Living Assistant Name | Role | Phone | [...] | | | Ave [facility] for | [place], [place] | | | | | Health and Healing, | [address] | | | | | Building | [phone] | | | | | floor [place], [place] | | | | | | [address] | | | | | | [phone] | | | +--------+ + + + [...] Kiki Rosen PA - 12/24/2008 3:02 PM [employer] company says to try again later. No [...]
--- OUTSIDE RECORDS SUMMARY | ~2020-08-03 | XMS | Encounter Summary ---
Demographics + + + | Address | [address] | | | [place] [address] | + + + | Home Phone [...] + | Author | [facility] | + + + | Organization | [facility] [employer] [facility] | [...] Team Providers + +------+ + | Care Game Programmer Name | Role | Phone | [...] Cerebri; | | 2005 | Visit | [place] | | Common Migraine | | | | Neuro-Ophthalmology | | without Mention of | | | | [address] | | Intractable Migraine | | | | Mailcode: CEI | | | | | | [place] [address] | | | | | | [phone] | | | +--------+---------+ + + + [...] 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
--- OUTSIDE RECORDS SUMMARY | ~2020-08-03 | XMS | Encounter Summary ---
Demographics + + + | Address | [address] | | | [place] [address] | + + + | Home Phone [...] | [facility] | + + + | Organization | [facility] [employer] [facility] [...] Providers + +------+ + | Care Remedial Teacher Name | Role | Phone | [...] Cerebri; | | 2006 | Visit | [place]/Ophthalmol | | Papilledema | | | | ogy at [facility] [address] | | Associated with | | | | [facility] | | Increased | | | | Health and Healing, | | Intracranial | | | | Building | | Pressure; Transient | | | | Floor [place], [place] | | Visual Loss | | | | [address] | | | | | | [phone] | | | +--------+---------+ + + + [...] HPI: 31 y.o. year old female from [place] : Patient presents with: Transient visual loss [...] seconds; these occur 2-3 x per w bois forte. Hobbies: Tobacco use: reports that she has [...] continue follow-up for psuedotumor w [facility] neuro-ophth. Follow up at [facility] prn new symptoms or complaints. WADE Jensen [...]
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
--- OUTSIDE RECORDS SUMMARY | ~2020-08-03 | XMS | Encounter Summary ---
Demographics + + + | Address | [address] | | | [place] [address] | + + + | Home Phone [...] + | Author | [facility] | + + + | Organization | [facility] [...] Providers + +------+ + | Care Heel Cutter Name | Role | Phone | [...] Refill Request | | 2012 | | [place]/Ophthalmol | MD Perry | | | | | leon at [facility] [address] | | | | | | [facility] | | | | | | Health and Healing, | | | | | | Building | | | | | | Floor [place], [place] | | | | | | [address] | | | | | | [phone] | | | +--------+--------+ + + + [...]
--- OUTSIDE RECORDS SUMMARY | ~2020-08-03 | XMS | Encounter Summary ---
Demographics + + + | Address | [address] | | | [place] [address] | + + + | Home Phone [...] + + | 01/15/ | Hospital | [facility] | Marine Leonard | | | 2011 | Encounter | MED CTR EMERGENCY | Vidal Gaurang BILL | | | | | CENTER [address] | [place], [place] | | | | | [place] | [address] | | | | | [address] | | | | | | [phone] | | | +--------+ + + + [...] nt states that she was recently in [place] and saw her neurologist. She said she had some tests done in September and October, and said that her SPECIALTY MOLDER shunt was no longer in place. She [...] s tates that she was seen at [place] today for her headache, but she states [...] states that she was seen twice in [place] and was given some sort of medicine, but s he does know the name of it, but it did not help her headache and so she came here for to s [place] further treatment. Apparently when she was at [place], she had received some morphine on one [...] to pseudotumor cerebri a nd having a SPECIALTY MOLDER shunt placed. Again, she states that the [...] Vidal Leonard DO Emergency Medicine JOB #: [id number] EXT JOB #:[id number] <Electronicall y Signed by Jt Leonard DO> 01/21/12 1454 documented in this encounter Plan of Treatment Not on filedocumented as of this encounter Visit Diagnoses Not on filedocumented in this encounter"
--- OUTSIDE RECORDS SUMMARY | ~2020-08-03 | XMS | Encounter Summary ---
Demographics + + + | Address | [address] | | | [place] [address] | + + + | Home Phone [...] Author | [facility] [employer] [facility] | + + + | Organization | [facility] [employer] [facility] [...] Providers + +------+ + | Care Credit Or Loans Officer Name | Role | Phone | [...] | Headache | | 2005 | | [place]/Ophthalmol | MD Jordin | | | | | leon at [facility] [address] | | | | | | [facility] | | | | | | Health and Healing, | | | | | | Building | | | | | | Floor [place], [place] | | | | | | [address] | | | | | | [phone] | | | +--------+ + + + [...] she could not find a ride to [place] for an exam. She lives 4 hours [...] understanding. BRYAN WILSON MD Ophthalmology Resident Physician [facility] documented in this en counter Plan of Treatment Not on filedocumented as of this encounter Visit Diagnoses Not on filedocumented in this encounter"
--- OUTSIDE RECORDS SUMMARY | ~2020-08-03 | XMS | Encounter Summary ---
Demographics + + + | Address | [address] | | | [place] [address] | + + + | Home Phone [...] Providers + +------+ + | Care Operations And Intelligence Assistant Name | Role | Phone | + +------+ + PCP | Unavailable | + +------+ + Encounter Details +--------+ + + + + | Date | Type | Department | Care Team | Description | +--------+ + + + + | 10/14/ | Hospital | [facility] | | | | 1991 | Encounter | [facility] | | | | | | [facility]ALTH [facility] [address] | | | | | | [place], | | | | | | [place] [address] | | | | | | [phone] | | | +--------+ + + + [...]
--- OUTSIDE RECORDS SUMMARY | ~2020-08-03 | XMS | Encounter Summary ---
Demographics + + + | Address | [address] | | | [place] [address] | + + + | Home Phone [...] Author | [facility] [employer] [facility] | + + + | Organization | [facility] [employer] [facility] | + [...] Providers + +------+ + | Care Traffic Monitor Specialist Name | Role | Phone | [...] Cerebri | | 2006 | Visit | [place] | | (Primary Dx) | | | | Neuro-Ophthalmology | | | | | | [address] [facility] | | | | | | Mailcode: PATTI | | | | | | [place] [address] | | | | | | [phone] | | | +--------+---------+ + + + [...] Brad Currie MD Neuro-Ophthalmology and Cerebrovascular Disease Baby Counselor of Ophthalmology, Neurology, and Neurosurgery documented in [...]
--- OUTSIDE RECORDS SUMMARY | ~2020-08-03 | XMS | Encounter Summary ---
Demographics + + + | Address | [address] | | | [place] [address] | + + + | Home Phone [...] + | Author | [facility] [employer] | + + + | Organization | [facility] [employer] [facility] [...] Providers + +------+ + | Care Funeral Greeter Name | Role | Phone | + [...] Refill Request | | 2006 | | [place] | [facility] | | | | | Oculoplastics at | Rd [place], [place] | | | | | [facility] [address] | [address] | | | | | [address] | | | | | | Eye [place] | | | | | | [address] | | | | | | [place] [address] | | | | | | [phone] | | | +--------+ + + + [...] to be seen here or by an fuselage framer in [place], but she says she does not have transportation. I will call in Vicodin #20, pt to call immediately if there is any worsening. Called in Vicodin #20 to [place] [facility] 07 8:32 AM PDTdocumented in this encounter Plan of Treatment Not on filedocumented as of this encounter Visit Diagnoses Not on filedocumented in this encounter"
--- OUTSIDE RECORDS SUMMARY | ~2020-08-03 | XMS | Encounter Summary ---
Demographics + + + | Address | [address] | | | [place] [address] | + + + | Home Phone [...] + + + | Author | [facility] | + + + | Organization | [facility] [employer] [facility] [...] + +------+ + | Care Mobile Home Technician Name | Role | Phone | [...] | | 2006 | Visit | [place] | | (Primary Dx) | | | | Neuro-Ophthalmology | | | | | | [address] [facility] | | | | | | Mailcode: PATTI | | | | | | [place] [address] | | | | | | [phone] | | | +--------+---------+ + + + [...] Referred by: CASIMIRO PAYTON MD [address] [place] [address] Per [facility] chart note taken this morning by . Symptoms: Patient specific problem noted by patient: transient visual loss HPI: 31 y.o. year old female from [place] : Patient presents with: Transient visual loss [...] negative Pulmonary: negative GI: Problems due to coding spec use of tylenol/ibuprofen. : negative Musculoskeletal: negative [...] Brad Currie MD Neuro-Ophthalmology and Cerebrovascular Disease Biological Technical Officer of Ophthalmology, Neurology, and Neurosurgery [...]
--- OUTSIDE RECORDS SUMMARY | ~2020-08-03 | XMS | Encounter Summary ---
Demographics + + + | Address | [address] | | | [place] [address] | + + + | Home Phone [...] + + | Author | [facility] [employer] [facility] | + + + | Organization | [facility] [employer] [facility] | + [...] + +------+ + | Care Continuous Process Tanner Rotary Drum Name | Role | Phone | + [...] | | | [place] Mailcode: [id number] | [place], [place] | | | | | [place], [place] | [address] | | | | | [address] | [phone] | | | | | [phone] | | | +--------+ + + + [...]
--- OUTSIDE RECORDS SUMMARY | ~2020-08-03 | XMS | Encounter Summary ---
Demographics + + + | Address | [address] | | | [place] [address] | + + + | Home Phone [...] Author | [facility] [employer] [facility] | + + + | Organization | [facility] [employer] [facility] [...] Providers + +------+ + | Care Box Lining Machine Operator Name | Role | Phone [...] | | | | | | | [facility] | | | | | | | Hospital | | | | | | | [place], [place] | | | | | | | [address] | | | | | | | Phone: | | | | | | | [phone] | | | | | | | Fax: | | | | | | | [phone] | +--------+--------+ + + + + Encounter Details +--------+ + + + + | Date | Type | Department | Care Team | Description | +--------+ + + + + | 05/07/ | Hospital | [facility] [address] | [place], | | | 2007 | Encounter | [address] | MD [place] | | | | | [facility] [facility] | MD Holden,PhD | | | | | [place] | | | | | | [address] | | | | | | [phone] | | | +--------+ + + + [...] documented in this encounter Procedure Notes Other, [facility] - 05/07/2008 3:15 PM PDTAssociated Order(s): RADIOLOGY Other, [facility] - 3:15 PM PDTAssociated Order(s): ORDERS OTHER Other, [facility] - 05/07/2008 3:15 PM PDT documented in this encounter Miscellaneous Notes Scan - Other, [facility] - 05/07/2008 3:15 PM PDT Scan - Other, [facility] - 05/07/2008 3:15 P M PDT [...] Dennis, | | | | | | M.D.Cnc Machine Setter surgeon: . | | | | | [...] | | | | | | vein with[employer] | | | | | | [...] artery. | | | | | | [id number] Raffi | | | | | | [...] | | | | | with a [employer] | | | | | | [...]
--- OUTSIDE RECORDS SUMMARY | ~2020-08-03 | XMS | Encounter Summary ---
Demographics + + + | Address | [address] | | | [place] [address] | + + + | Home Phone [...] Providers + +------+ + | Care Shop Router Name | Role | Phone | + +------+ + PCP | Unavailable | + +------+ + Encounter Details +--------+ + + + + | Date | Type | Department | Care Team | Description | +--------+ + + + + | 10/12/ | Hospital | [facility] | | | | 1991 | Encounter | [facility] | | | | | | [facility] [address] | | | | | | [place], | | | | | | [place] [address] | | | | | | [phone] | | | +--------+ + + + [...]
--- OUTSIDE RECORDS SUMMARY | ~2020-08-03 | XMS | Encounter Summary ---
Demographics + + + | Address | [address] | | | [place] [address] | + + + | Home Phone [...] Providers + +------+ + | Care Business Continuity Director Name | Role | Phone | + +------+ + PCP | Unavailable | + +------+ + Encounter Details +--------+ + + + + | Date | Type | Department | Care Team | Description | +--------+ + + + + | 07/07/ | Hospital | [facility] | | | | 1991 | Encounter | MED CTR EMERGENCY | | | | | | CENTER [address] | | | | | | [place] | | | | | | [address] | | | | | | [phone] | | | +--------+ + + + [...]
--- OUTSIDE RECORDS SUMMARY | ~2020-08-03 | XMS | Encounter Summary ---
Demographics + + + | Address | [address] | | | [place] [address] | + + + | Home Phone [...] Providers + +------+ + | Care Payroll Supervisor Name | Role | Phone | + +------+ + PCP | Unavailable | + +------+ + Encounter Details +--------+ + + + + | Date | Type | Department | Care Team | Description | +--------+ + + + + | 10/21/ | Hospital | [facility] | | | | 1991 | Encounter | [facility] | | | | | | [facility] [address] | | | | | | [place], | | | | | | [place] [address] | | | | | | [phone] | | | +--------+ + + + [...]
--- OUTSIDE RECORDS SUMMARY | ~2020-08-03 | XMS | Encounter Summary ---
Demographics + + + | Address | [address] | | | [place] [address] | + + + | Home Phone [...] | Organization | [facility] [...] Team Providers + +------+ + | Care Pm Head Cook Name | Role | Phone | [...] | | | | | | [place], | | | | | | [place] [address] | | | | | | [phone] | | | +--------+ + + + [...]
--- OUTSIDE RECORDS SUMMARY | ~2020-08-03 | XMS | Encounter Summary ---
Demographics + + + | Address | [address] | | | [place] [address] | + + + | Home Phone [...] + + | Author | [facility] | + + + | Organization | [facility] [employer] [facility] | + + [...] Providers + +------+ + | Care Logistics Vice President Name | Role | Phone | + +------+ + | Brenden Benavides MD | PCP | | + +------+ + Encounter Details +--------+ + + + + | Date | Type | Department | Care Team | Description | +--------+ + + + + | 02/23/ | Telephone | [facility] | rBad Currie MD | | | 2006 | | [place] | | | | | | Neuro-Ophthalmology | | | | | | [address] [facility] | | | | | | Mailcode: PATTI | | | | | | [place] [address] | | | | | | [phone] | | | +--------+ + + + [...] seen immediately. Due to patient being in [place] I advised her to contact her oph thalmologist in [place] for immediate appointment. Patient said she would do this. [facility] Security Officer for MD Julieta Nielson MD documented in th is encounter Plan of Treatment Not on filedocumented as of this encounter Visit Diagnoses Not on filedocumented in this encounter"
--- OUTSIDE RECORDS SUMMARY | ~2020-08-03 | XMS | Encounter Summary ---
Demographics + + + | Address | [address] | | | [place] [address] | + + + | Home Phone [...] + | Author | [facility] | + + + | Organization | [facility] [...] Providers + +------+ + | Care Special Effects Technician Name | Role | Phone | [...] | | | [address] [facility] for | [place], [place] | | | | | Health and Healing, | [address] | | | | | [facility] | [phone] | | | | | floor [place], [place] | | | | | | [address] | | | | | | [phone] | | | +--------+ + + + [...] for evaluation. She can be reached at [facility] at [phone]. docum ented in this encounter Plan of Treatment Not on filedocumented as of this encounter Visit Diagnoses Not on filedocumented in this encounter"
--- OUTSIDE RECORDS SUMMARY | ~2020-08-03 | XMS | Encounter Summary ---
Demographics + + + | Address | [address] | | | [place] [address] | + + + | Home Phone [...] | Author | [facility] [employer] [facility] | + + + | Organization | [facility] [employer] [facility] | + [...] Team Providers + +------+ + | Care Jowl Trimmer Name | Role | Phone | [...] Cerebri | | 2006 | Visit | [place] | | (Primary Dx) | | | | Neuro-Ophthalmology | | | | | | [address] [facility] | | | | | | Mailcode: PATTI | | | | | | [place] [address] | | | | | | [phone] | | | +--------+---------+ + + + [...] Referred by: CASIMIRO PAYTON MD [address] [place] [address] Symptoms: Patient feels things are better. Vision [...] Brad Currie MD Neuro-Ophthalmology and Cerebrovascular Disease Data Librarian of Ophthalmology, Neurology, and Neurosurgery documented in [...]
--- OUTSIDE RECORDS SUMMARY | ~2020-08-03 | XMS | Encounter Summary ---
Demographics + + + | Address | [address] | | | [place] [address] | + + + | Home Phone [...] Providers + +------+ + | Care Public Speaker Name | Role | Phone | + +------+ + PCP | Unavailable | + +------+ + Encounter Details +--------+ + + + + | Date | Type | Department | Care Team | Description | +--------+ + + + + | 07/30/ | Hospital | [facility] | | | | 2008 - | Encounter | MED CTR MED ONC | | | | | | [address] | | | | 08/02/ | | [place] [address] | | | | 2008 | | [phone] | | | +--------+ + + + [...]
--- OUTSIDE RECORDS SUMMARY | ~2020-08-03 | XMS | Encounter Summary ---
Demographics + + + | Address | [address] | | | [place] [address] | + + + | Home Phone [...] + | Author | [facility] | + + + | Organization | [facility] [employer] [facility] [...] Team Providers + +------+ + | Care Buffing Wheel Former Machine Name | Role | Phone | [...] | | 2012 | anned | [address] [facility] | | | | | | [address] | | | | | | [employer], [place] | | | | | | [address] | | | +--------+ + + + [...]
--- OUTSIDE RECORDS SUMMARY | ~2020-08-03 | XMS | Encounter Summary ---
Demographics + + + | Address | [address] | | | [place] [address] | + + + | Home Phone [...] | Organization | [facility] [...] Providers + +------+ + | Care Interior Assemblies Installer Name | Role | Phone | + +------+ + PCP | Unavailable | + +------+ + Encounter Details +--------+ + + + + | Date | Type | Department | Care Team | Description | +--------+ + + + + | 08/16/ | Hospital | [facility] | | | | 1990 | Encounter | MED CTR EMERGENCY | | | | | | CENTER [address] | | | | | | [place] | | | | | | [address] | | | | | | [phone] | | | +--------+ + + + [...]
--- OUTSIDE RECORDS SUMMARY | ~2020-08-03 | XMS | Encounter Summary ---
Demographics + + + | Address | [address] | | | [place] [address] | + + + | Home Phone [...] | Author | [facility] | + + + | Organization | [facility] [employer] [facility] [...] | | | | | [address] [facility] | [place], [place] | | | | | Health and Healing, | [address] | | | | | [facility] | [phone] | | | | | floor [place], [place] | | | | | | [address] | | | | | | [phone] | | | +--------+ + + + [...]
--- OUTSIDE RECORDS SUMMARY | ~2020-08-03 | XMS | Encounter Summary ---
Demographics + + + | Address | [address] | | | [place] [address] | + + + | Home Phone [...] Team Providers + +------+ + | Care Dehydrating Press Operator Name | Role | Phone | + +------+ + PCP | Unavailable | + +------+ + Encounter Details +--------+ + + + + | Date | Type | Department | Care Team | Description | +--------+ + + + + | 04/24/ | Hospital | [facility] | | | | 1991 | Encounter | MED CTR EMERGENCY | | | | | | CENTER [address] | | | | | | [place] | | | | | | [address] | | | | | | [phone] | | | +--------+ + + + [...]
--- OUTSIDE RECORDS SUMMARY | ~2020-08-03 | XMS | Encounter Summary ---
Demographics + + + | Address | [address] | | | [place] [address] | + + + | Home Phone [...] | Author | [facility] | + + + | Organization | [facility] [employer] [facility] [...] Team Providers + +------+ + | Care Generation Engineering Technologist Name | Role | Phone | [...] [place], | | | | | [facility] | [place] [id number] | | | | | [place], [place] | | | | | | [address] | | | | | | [phone] | | | +--------+ + + + [...] to be increasing. Her phone # is [phone]. documented in this encou nter Plan of Treatment Not on filedocumented as of this encounter Visit Diagnoses Not on filedocumented in this encounter"
--- OUTSIDE RECORDS SUMMARY | ~2020-08-03 | XMS | Encounter Summary ---
Demographics + + + | Address | [address] | | | [place] [address] | + + + | Home Phone [...] Organization | [facility] [...] Providers + +------+ + | Care Material Controller Name | Role | Phone | + +------+ + PCP | Unavailable | + +------+ + Encounter Details +--------+ + + + + | Date | Type | Department | Care Team | Description | +--------+ + + + + | 07/19/ | Hospital | [facility] | Vern [place], | | | 1990 - | Encounter | MED CTR MED ONC | MD [address] | | | | | [address] | [place] | | | 07/21/ | | [place] [address] | [address] | | | 1990 | | [phone] | | | +--------+ + + + [...]
--- OUTSIDE RECORDS SUMMARY | ~2020-08-03 | XMS | Encounter Summary ---
Demographics + + + | Address | [address] | | | [place] [address] | + + + | Home Phone [...] Providers + +------+ + | Care Career Placement Specialist Name | Role | Phone | + +------+ + PCP | Unavailable | + +------+ + Encounter Details +--------+ + + + + | Date | Type | Department | Care Team | Description | +--------+ + + + + | 05/31/ | Hospital | [facility] | | | | 1991 | Encounter | MED CTR WOMENS | | | | | | [facility] [address] | | | | | | [place], | | | | | | [place] [address] | | | | | | [phone] | | | +--------+ + + + [...]
--- NOTE | 2020-08-03 22:47 | EKG ---
[facility] [address] [facility] [place], [place] [address] Signed Normal sinus rhythm Normal ECG When compared with ECG of 30-JUL-2020 18:46, Questionable change in QRS axis Confirmed by HERMINIO DUMONT MD ([id number]) on 08/03/2020 10:47:08 PM Electronically Signed By: HERMINIO DUMONT MD 08/03/20 2247 PATIENT NAME: GABY STEWART Electrocardiogram DATE OF : 75 PHYSICIAN: HERMINIO DUMONT MD REPORT #: [id number] REPORT IS CONFIDENTIAL AND NOT TO BE RELEASED WITHOUT AUTHORIZATION
== END 2020-08-03 18:45 | disposition left against medical advice (07) ==
LOC: ED 17:37
DX: E11.649 Type 2 diabetes mellitus with hypoglycemia without coma (principal); I10 Essential (primary) hypertension; J44.9 Chronic obstructive pulmonary disease, unspecified; F17.200 Nicotine dependence, unspecified, uncomplicated; Z88.5 Allergy status to narcotic agent; Z88.1 Allergy status to other antibiotic agents; Z88.6 Allergy status to analgesic agent; Z88.8 Allergy status to other drugs, medicaments and biological substances; Z79.899 Other long term (current) drug therapy
CPT/HCPCS: 71045; 93005; 93010; 99285-25

== ENCOUNTER 2020-09-03 16:03 | Emergency (ER) | payer OTHER ==
[~2020-09-03] VITALS: Ht 165.1 cm; Wt 104.3 kg
--- OUTSIDE RECORDS SUMMARY | ~2020-09-03 | XMS | Encounter Summary ---
Demographics + + + | Address | [address] | | | [place] [address] | + + + | Home Phone | | + + + | Preferred Language | Unknown | + + + | Marital Status | | + + + | Alevism Affiliation | NON | + + + | Race | or | + + + | Ethnic Group | Not or | + + + Author + + + | Author | [facility] | + + + | Organization | [facility] [employer] [facility] | + + + | Address | Unknown | + + + | Phone | Unavailable | + + + Support + + +---------+ + | Name | Relationship | Address | Phone | + + +---------+ + | Ruby Au | ECON | Unknown | | + + +---------+ + Care Team Providers + +------+ + | Care Senior Branch Manager Name | Role | Phone | + +------+ + | Dennis Maddox | PCP | | + +------+ + Reason for Visit + +--------+ + | Reason | Onset | Comments | | | Date | | + +--------+ + | Refill Request | 03/29/ | | | | 2012 | | + +--------+ + Encounter Details +--------+--------+ + + + | Date | Type | Department | Care Team | Description | +--------+--------+ + + + | 03/29/ | Refill | [facility] | Mo Hood | Refill Request | | 2012 | | [place]/Ophthalmol | MD Perry | | | | | leon at [facility] [address] | | | | | [address] [facility] | | | | | | Health and Healing, | | | | | | Building | | | | | | Floor [place], [place] | | | | | | [address] | | | | | | [phone] | | | +--------+--------+ + + + Social History + + [...]
--- OUTSIDE RECORDS SUMMARY | ~2020-09-03 | XMS | Encounter Summary ---
Demographics + + + | Address | [address] | | | [place] [address] | + + + | Home Phone [...] + + | Author | [facility] [employer] [facility] | + + + | Organization | [facility] [employer] [facility] | + + + | Address | Unknown | + + + | Phone | Unavailable | + + + Support + + +---------+ + | Name | Relationship | Address | Phone | + + +---------+ + | Ruby Au | ECON | Unknown | | + + +---------+ + Care Team Providers + +------+ + | Care Lining Repairer Name | Role | Phone | + +------+ + | Yeison Simms MD | PCP | Unavailable | + +------+ + Encounter Details +--------+---------+ + + + | Date | Type | Department | Care Team | Description | +--------+---------+ + + + | 08/19/ | Office | Neurosurgery at | Sam Pedroza MD | Pseudotumor Cerebri | | 2007 | Visit | [facility] [address] | [address] | (Primary Dx) | | | | [address] [facility] | [place], [place] | | | | | Health and Healing, | [address] | | | | | Building [address] | [phone] | | | | | floor [place], [place] | | | | | | [address] | | | | | | [phone] | | | +--------+---------+ + + + [...] + + documented as of this encounter Kiki Huston - 08/19/2008 3:34 PM PDTErroroneous encounter No show documented in this encoun ter Plan of Treatment Not on filedocumented as of this encounter Visit Diagnoses + + | Diagnosis | + + | Pseudotumor cerebri - Primary Benign intracranial hypertension | + + documented in this encounter"
--- OUTSIDE RECORDS SUMMARY | ~2020-09-03 | XMS | Encounter Summary ---
Demographics + + + | Address | [address] | | | [place] [address] | + + + | Home Phone | | + + + | Preferred Language | Unknown | + + + | Marital Status | | + + + | Orthodox Affiliation | NON | + + + | Race | or | + + + | Ethnic Group | Not or | + + + Author + + + | Author | [facility] | + + + | Organization | [facility] | + + + | Address | Unknown | + + + | Phone | Unavailable | + + + Support + + +---------+ + | Name | Relationship | Address | Phone | + + +---------+ + | Ruby Au | ECON | Unknown | | + + +---------+ + Care Team Providers + +------+ + | Care Dry Heat Room Attendant Name | Role | Phone | + +------+ + | Pedro Luis Sams MD | PCP | | + +------+ + Encounter Details +--------+ + + + + | Date | Type | Department | Care Team | Description | +--------+ + + + + | 02/19/ | Telephone | Neurosurgery at | Sam Pedroza MD | | | 2012 | | [facility] [address] | [address] | | | | | Ave [facility] | [place], [place] | | | | | Health and Healing, | [address] | | | | | Building [address] | [phone] | | | | | floor [place], [place] | | | | | | [address] | | | | | | [phone] | | | +--------+ + + + [...] this encounter Miscellaneous Notes Telephone Encounter - Lucina Chavez PA - 02/20/2013 1:43 PM PDTPatient [facility], [facility] pain and [facility] from [facility] on ATBX regimen. No neurosurgical needs identified. Will close encounter. Electronically sig brad by FLORA Solano at 02/20/2013 1:45 PM PDTTelephone Encounter - Suzy Chavez PA - 02/19/2013 3:19 PM PDTI think ED visit seems most appropriate to r/o the multiple etiologies of nausea/emesis. She is a 37 yr old F with hx of pseudotumor cerebri s/p LPS placement. Recurrent headaches and nausea at last appointment 09/17/11 with non functioning LPS; report of chronic papille sushant. She opted medical therapy through her i&c technician: increase in diamox dose; and l et us know if this were ineffective for her condition to discuss removal of the LPS and poss ible stent placement (if approved by insurance company). Please f/u on ED visit (notes/scans) so that we can determine if further neurosurgical cons ideration is needed. Will also forward to Dr Pedroza for his review. elephone Encounter - Amanda Carbone LPN - 02/19/2013 2:52 PM PDTPt calls with concerns. Pt states she's been throwing up for five days and is at her PCP right now, but pt states P CP does not know anything about her, so PCP advised pt call NSG office. Pt reports vomiting, nausea, no fever, and CAPONE that is 8/10. Pt also reports seeing "black spots." Advised pt to go to the [facility] ED, pt states she is in [place], [place] and will go to her [facility] ED. Paged FLORA Paul and discussed documentation above. documented in this encounter Plan of Treatment Not on filedocumented as of this encounter Visit Diagnoses Not on filedocumented in this encounter
--- OUTSIDE RECORDS SUMMARY | ~2020-09-03 | XMS | Encounter Summary ---
Demographics + + + | Address | [address] | | | [place] [address] | + + + | Home Phone | | + + + | Preferred Language | Unknown | + + + | Marital Status | | + + + | Taoist Affiliation | Unknown | + + + | Race | or | + + + | Ethnic Group | Not or | + + + Author + + + | Author | [facility] | | | and [place] | + + + | Organization | [facility] | | | and [place] | + + + | Address | Unknown | + + + | Phone | Unavailable | + + + Support + + +---------+ + | Name | Relationship | Address | Phone | + + +---------+ + | Saadreina Chamorro | ECON | Unknown | | + + +---------+ + Care Team Providers + +------+ + | Care Human Resources Administrator Name | Role | Phone | + +------+ + PCP | Unavailable | + +------+ + Encounter Details +--------+ + + + + | Date | Type | Department | Care Team | Description | +--------+ + + + + | 08/10/ | Hospital | [facility] | | | | 1990 | Encounter | MED CTR EMERGENCY | | | | | | CENTER [address] | | | | | | [place] | | | | | | [address] | | | | | | [phone] | | | +--------+ + + + [...]
--- OUTSIDE RECORDS SUMMARY | ~2020-09-03 | XMS | Encounter Summary ---
Demographics + + + | Address | [address] | | | [place] [address] | + + + | Home Phone | | + + + | Preferred Language | Unknown | + + + | Marital Status | | + + + | Scientology Affiliation | Unknown | + + + | Race | or | + + + | Ethnic Group | Not or | + + + Author + + + | Author | [facility] | | | and [place] | + + + | Organization | [facility] | | | and [place] [...] Team Providers + +------+ + | Care Quiller Operator Name | Role | Phone | + +------+ + PCP | Unavailable | + +------+ + Encounter Details +--------+ + + + + | Date | Type | Department | Care Team | Description | +--------+ + + + + | 04/18/ | Hospital | [facility] | | | | 1991 | Encounter | MED CTR EMERGENCY | | | | | | CENTER [address] | | | | | | [place] | | | | | | [address] | | | | | | [phone] | | | +--------+ + + + [...]
--- OUTSIDE RECORDS SUMMARY | ~2020-09-03 | XMS | Encounter Summary ---
Demographics + + + | Address | [address] | | | [place] [address] | + + + | Home Phone | | + + + | Preferred Language | Unknown | + + + | Marital Status | | + + + | Hoahaoism Affiliation | NON | + + + | Race | or | + + + | Ethnic Group | Not or | + + + Author + + + | Author | [facility] | + + + | Organization | [facility] [employer] [facility] | + + + | Address | Unknown | + + + | Phone | Unavailable | + + + Support + + +---------+ + | Name | Relationship | Address | Phone | + + +---------+ + | Ruby Au | ECON | Unknown | | + + +---------+ + Care Team Providers + +------+ + | Care Complaint Clerk Name | Role | Phone | + +------+ + | Dennis Maddox | PCP | | + +------+ + Reason for Visit + + + | Reason | Comments | + + + | IIH - Idiopathic | | | intracranial | | | hypertension | | + + + Office Visit - E/M Services (Routine) +--------+--------+ + + + + | Status | Reason | Specialty | Diagnoses / | Referred By | Referred To | | | | | Procedures | Contact | Contact | +--------+--------+ + + + + | Closed | | Ophthalmology | | Non-[facility] | [place], | | | | | | Epic Dept | Graciela Guardado MD | | | | | | | [address] | | | | | | | Ave | | | | | | | [place], [place] | | | | | | | [address] | | | | | | | Phone: | | | | | | | [phone] | | | | | | | Fax: | | | | | | | [phone] | +--------+--------+ + + + + Encounter Details +--------+---------+ + + + | Date | Type | Department | Care Team | Description | +--------+---------+ + + + | 03/26/ | Office | [facility] | Mo Hood | Pseudotumor cerebri | | 2012 | Visit | [place]/Ophthalmol Leif Amador MD | (Primary Dx); | | | | ogy at [facility] [address] | | Depression; Type II | | | | [address] [facility] for | | or unspecified type | | | | Health and Healing, | | diabetes mellitus | | | | Building | | without mention of | | | | Floor [place], [place] | | complication, not | | | | [address] | | stated as | | | | [phone] | | uncontrolled; PTSD | | | | | | (post-traumatic | | | | | | stress disorder); | | | | | | HTN (hypertension) | +--------+---------+ + + + Social History [...] documented as of this encounter Progress Notes Graciela Lux MD - 05/25/2013 12:22 AM PDTATTENDING NOTE Ornelas portions of the History and Examination were repeated by me, diagnoses and plans were c reated in conjunction with the resident, and I agree with resident's note as recorded. Graciela Lux M.D. Mo Wilson MD - 03/26/2013 11:02 AM PDTFormatting of this note might be diff erent from the original. COMPREHENSIVE OPHTHALMOLOGY PROGRESS NOTE 03/26/2013 HPI: 37 y.o. year old female from [place] : Patient presents with: IIH - Idiopathic intracranial hypertension Follow-up from an Emergency Room visit for IIH last week. She was started on Diamox but sa ys, "I finished that prescription," and has not been on it for the last 2 days. She has a very complicated IIH history including a optic nerve sheath fenestration in 2006 and multiple lumoperitoneal shunt revisions. She has had a significant amount of vomiting a nd nausea but says that she was found to have gastric ulcers and has since stopped ibuprofen which has cut down the nausea/vomiting. Her headaches occur 2-4x/week lasting hours at a time. She has pulsatile tinnitus, occasio nal tunnel vision, spots in her vision, blurriness but no blacking out. She also occasional ly gets diplopia which was documented in her last note to be worse at near but she denies th at currently. She also reports that her headaches improve with lying down and worse with si tting or standing. Her shunt failed about 1.5 years ago and up until then she was doing really well. However, she was taking care of her mom and unable to come in because they live 4 hours away in [facility]. Tobacco use: reports that she has been smoking Cigarettes. She has a 15 pack-year smoking history. She does not have any smokeless tobacco history on file. Primary Care Provider: FLORA Charles Past ocular history: Psuedotumor cerebri ONSFensetration 02/01 COA patient since 03/27/07 Family ocular history: family history is negative for Cataract, and Glaucoma, and Cataract, . See scanned intake form for full Family ocular and medical history. Allergies: is allergic to augmentin; cephalexin; codeine; morphine; imitrex; and venlafaxin e. Medications: Current Outpatient Prescriptions (Other) Medication Sig carisoprodol Take 350 mg by mouth three times daily as needed. ibuprofen Take 800 mg by mouth every eight hours as needed. losartan Take 100 mg by mouth once daily. metFORMIN Take 500 mg by mouth two times daily. omeprazole Take 20 mg by mouth two times daily. topiramate Start with taking 1 tablet a day for 1 week, then 2 tablets a day for 1 week , than 3 tablets a day for 1 week and then 4 tablets a day. Medical history/PMH/Review of systems: Patient Active Problem List Diagnoses Pseudotumor Cerebri Bronchitis Past Medical History Diagnosis Date Pseudotumor cerebri Joint pain has past surgical history that includes lumboperitoneal shunt (04/28/06); full rout obste ca re, deliv; carpal tunnel release; tonsillectomy; appendectomy; and decompress optic nerve (02/07/07). Reviewed systems for: fever, wt. loss, ENT, cardiovascular, pulmonary, GI, urinary, neurolo gic, endocrine, bleeding/blood disorders, AIDS/HIV, cancer/tumors, arthritis - all were nega tive except as noted above. EXAMINATION: Base Ophthalmology Exam Visual Acuity Right Left Dist sc 20/20 -1 20/20 -2 Method: Snellen - Linear Tonometry Right Left Pressure 15 15 Method: Applanation Time: 11:23 AM Dilation Both eyes: 1.0% Mydriacyl, 2.5% Phenylephrine @ 11:23 AM Pupils Pupils APD Right PERRL None Left PERRL None Main Ophthalmology Exam External Exam Right Left External Normal Normal Slit Lamp Exam Right Left Lids/Lashes Normal Normal Conjunctiva/Sclera White and quiet White and quiet Cornea All layers clear All layers clear Anterior Chamber Deep and quiet Deep and quiet Iris Round and reactive Round and reactive Lens Clear Clear Vitreous Normal Normal Fundus Exam Right Left Disc 1+ Optic disc edema, +LOGISTICS AND PLANNING MANAGER 2+ Optic disc edema, RNFL whitening at the superonasal borde r of the disc. There is spontaneous pulsing of the entire disc head with heart beat. C/D Ratio 0.1 0.1 Macula Normal Normal Vessels Engorged. tortuous Engorged. tortuous Periphery Normal Normal Neuro/Psych Oriented x3: Yes Mood/Affect: Normal See [facility] Ophthalmology Exam Module for additional exam information Interpretation of Flores 24-2 Static Perimetry 03/26/2013 OD: good reliability with 0/15 fixation losses, 0% false positive errors, and 6% false neg ative errors. The MD was -2.99 dB and the foveal threshold 36. Enlarged blind spot. Non-spe cific scattered defects. OS: fair reliability with 0/17 fixation losses, 1% false positive errors, and 10% false n egative errors. The MD was -4.56 dB and the foveal threshold 30. Enlarged blind spot. Small superior arcuate scotoma. Ishihara Color Plates: OD: 08/07 OS: 09/06 Assessment and Plan: 37 y.o. obese F with h/o pseudotumor cerebri (dx 2004) s/p left optic nerve sheath fenestra tion (by Dr. Hughes at [facility] in 2006) and s/p multiple lumboperitoneal shunt revisions/failures. She has stable symptoms that include biweekly headaches, pulsatile tinnitus and TVOs. Her h eadaches actually improve with lying down, however, which is less concerning for Idiopathic intracranial hypertension and more consistent with migraine or some other headache etiology. HVF 24-2 today consistent with previous descriptions of Oliveira VF's from 2007 (enlarged b stevenson spots) but nothing to compare. Spontaneous venous pulsations seen indicating intracran ial pressure is less than 25. No indication for acute intervention. Patient has numbness an d tingling with Diamox and poorly tolerates the side effects. Patient with history of poor follow up. 1. Pseudotumor Cerebri s/p left optic nerve fenestration in 2006, multiple failed LP shunts . May be having acute intracranial hypertensive episode 2. Chronic Papilledema, OS>OD 3. 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 Retinal vessel tortuosity, OU - noted in notes from several years ago Plan: -Topamax, start 25 mg/day and increase by 25 mg/week until at a dose of 100 mg/day -Disc photos taken today -Refer to neuro-ophthalmology at next available -Defer to neurosurgery regarding plans for shunt revision This patient was seen with and discussed with ophthalmology attending, Dr. Lux. Mo Hood MD Resident Physician [facility] [place], PGY-2 [facility] Physician: Mo Hood MD, 03/26/2013 documented in this encounter Miscellaneous Notes Scan - Other, Faculty - 04/02/2013 10:58 AM PDTElectronically signed by Faculty Other at 10:58 AM PDTdocumented in this encounter Plan of Treatment + + +--------+ + + | Name | Type | Priori | Associated Diagnoses | Order Schedule | | | | ty | | | + + +--------+ + + | [facility] | Procedures | Routin | Pseudotumor | Expected: | | | | e | cerebri | 03/26/2013, Expires: | | | | | | 05/25/2013 | + + +--------+ + + documented as of this encounter Visit Diagnoses + + | Diagnosis | + + | Pseudotumor cerebri - Primary Benign intracranial hypertension | + + | Depression Depressive disorder, not elsewhere classified | + + | Type II or unspecified type diabetes mellitus without mention of complication, not | | stated as uncontrolled | + + | PTSD (post-traumatic stress disorder) Posttraumatic stress disorder | + + | HTN (hypertension) Unspecified essential hypertension | + + documented in this encounter
--- OUTSIDE RECORDS SUMMARY | ~2020-09-03 | XMS | Encounter Summary ---
Demographics + + + | Address | [address] | | | [place] [address] | + + + | Home Phone [...] + + | Author | [facility] | + + + | Organization | [facility] [facility] | + + + | Address | Unknown | + + + | Phone | Unavailable | + + + Support + + +---------+ + | Name | Relationship | Address | Phone | + + +---------+ + | Ruby Au | ECON | Unknown | | + + +---------+ + Care Team Providers + +------+ + | Care Wire Charger Name | Role | Phone | + [...] | | | | | hypertension | [place], [place] | [place], [place] | | | | | Procedures | [address] | [address] | | | | | REQUEST TO | Phone: | Phone: | | | | | SURGERY | [phone] | [phone] | | | | | SIGHT EFFECTS SPECIALIST | Fax: | Fax: | | | | | [place] INSTALL | [phone] | [phone] | | | | | SPINAL | | | | | | | SHUNT,PERCUT | | | +--------+--------+ + + + + Reason for Visit +--------+--------+ + | Reason | Onset | Comments | | | Date | | +--------+--------+ + | Other | 07/01/ | | | | 2007 | | +--------+--------+ + Encounter Details +--------+ + + + + | Date | Type | Department | Care Team | Description | +--------+ + + + + | 06/20/ | Telephone | Neurosurgery at | Sam Pedroza MD | Other | | 2007 | | [facility] [address] | [address] | | | | | Ave [facility] | [place], [place] | | | | | Health and Healing, | [address] | | | | | [facility] | [phone] | | | | | floor [place], [place] | | | | | | [address] | | | | | | [phone] | | | +--------+ + + + [...] Notes Telephone Encounter - Mandi Mcdonnell - 06/20/2008 2:15 PM PDTPt would like to know if there is any alternative surgical procedures that she can have as the procedure Dr. Kasia baez is being denied by her insurance. 2 :15 PM PDTdocumented in this encounter Plan of Treatment Not on filedocumented as of this encounter Visit Diagnoses + + | Diagnosis | + + | Pseudotumor cerebri - Primary Benign intracranial hypertension | + + documented in this encounter"
--- OUTSIDE RECORDS SUMMARY | ~2020-09-03 | XMS | Encounter Summary ---
Demographics + + + | Address | [address] | | | [place] [address] | + + + | Home Phone [...] | Organization | [facility] | | | and [place] | [...] Team Providers + +------+ + | Care Top Dyeing Machine Tender Name | Role | Phone | + +------+ + PCP | Unavailable | + +------+ + Encounter Details +--------+ + + + + | Date | Type | Department | Care Team | Description | +--------+ + + + + | 10/27/ | Hospital | [facility] | | | | 1990 | Encounter | MED CTR EMERGENCY | | | | | | CENTER [address] | | | | | | [place] | | | | | | [address] | | | | | | [phone] | | | +--------+ + + + [...]
--- OUTSIDE RECORDS SUMMARY | ~2020-09-03 | XMS | Encounter Summary ---
Demographics + + + | Address | [address] | | | [place] [address] | + + + | Home Phone | | + + + | Preferred Language | Unknown | + + + | Marital Status | | + + + | Congregation Affiliation | Unknown | + + + | Race | or | + + + | Ethnic Group | Not or | + + + Author + + + | Author | [facility] | | | and [place] | + + + | Organization | [facility] | | | and [place] [...] Team Providers + +------+ + | Care Clinical Data Management Director Name | Role | Phone | + +------+ + PCP | Unavailable | + +------+ + Encounter Details +--------+ + + + + | Date | Type | Department | Care Team | Description | +--------+ + + + + | 03/29/ | Hospital | [facility] | | | | 2006 | Encounter | MED CTR XRAY [address] | | | | | | [place] | | | | | | [place] [address] | | | | | | [phone] | | | +--------+ + + + [...]
--- OUTSIDE RECORDS SUMMARY | ~2020-09-03 | XMS | Encounter Summary ---
Demographics + + + | Address | [address] | | | [place] [address] | + + + | Home Phone | | + + + | Preferred Language | Unknown | + + + | Marital Status | | + + + | Synagogue Affiliation | NON | + + + | Race | or | + + + | Ethnic Group | Not or | + + + Author + + + | Author | [facility] [employer] [facility] | + + + | Organization | [facility] [employer] [facility] | + + + | Address | Unknown | + + + | Phone | Unavailable | + + + Support + + +---------+ + | Name | Relationship | Address | Phone | + + +---------+ + | Ruby Au | ECON | Unknown | | + + +---------+ + Care Team Providers + +------+ + | Care Electronics Design Engineer Name | Role | Phone | [...] Cerebri | | 2006 | Visit | [place] | | (Primary Dx) | | | | Neuro-Ophthalmology | | | | | | [address] [facility] | | | | | | Mailcode: PATTI | | | | | | [place] [address] | | | | | | [phone] | | | +--------+---------+ + + + [...] documented as of this encounter Progress Notes Kush Brad - 10/13/2006 10:32 AM PSTFormatting of this note might be different from the becca starkey. Neuro-Ophthalmology Return Patient Evaluation 10/13/2006 Referred by: [...] of the medication that she SHOULD be sandra barreto. Brad Currie MD Neuro-Ophthalmology and Cerebrovascular Disease Vice President Global Digital Marketing of Ophthalmology, Neurology, and Neurosurgery documented in this encounter Plan of Treatment + + +--------+ + + | Name | Type | Priori | Associated Diagnoses | Order Schedule | | | | ty | | | + + +--------+ + + | ME VISUAL FIELD | Procedures | Routin | Pseudotumor | Ordered: 10/13/2006 | | EXAM,EXTENDED | | e | Cerebri | | + + +--------+ + + documented as of this encounter Visit Diagnoses + + | Diagnosis | + + | Pseudotumor cerebri - Primary Benign intracranial hypertension | + + documented in this encounter"
--- OUTSIDE RECORDS SUMMARY | ~2020-09-03 | XMS | Encounter Summary ---
Demographics + + + | Address | [address] | | | [place] [address] | + + + | Home Phone | | + + + | Preferred Language | Unknown | + + + | Marital Status | | + + + | Uatsdin Affiliation | Unknown | + + + | Race | or | + + + | Ethnic Group | Not or | + + + Author + + + | Author | [facility] | | | and [place] | + + + | Organization | [facility] | | | and [place] [...] Team Providers + +------+ + | Care Line Out Man Name | Role | Phone | + +------+ + PCP | Unavailable | + +------+ + Encounter Details +--------+ + + + + | Date | Type | Department | Care Team | Description | +--------+ + + + + | 08/12/ | Hospital | [facility] | Jenn [place], | | | 2012 | Encounter | HOSPITAL EMERGENCY | CORPORATE SALES MANAGER [address] | | | | | CENTER [address] | [place] | | | | | [address] [place] | [id number] | | | | | [address] | | | | | | [phone] | | | +--------+ + + + [...]
--- OUTSIDE RECORDS SUMMARY | ~2020-09-03 | XMS | Encounter Summary ---
Demographics + + + | Address | [address] | | | [place] [address] | + + + | Home Phone | | + + + | Preferred Language | Unknown | + + + | Marital Status | | + + + | Denominational Affiliation | NON | + + + | Race | or | + + + | Ethnic Group | Not or | + + + Author + + + | Author | [facility] [employer] [facility] | + + + | Organization | [facility] [employer] [facility] | + + + | Address | Unknown | + + + | Phone | Unavailable | + + + Support + + +---------+ + | Name | Relationship | Address | Phone | + + +---------+ + | Ruby Au | ECON | Unknown | | + + +---------+ + Care Team Providers + +------+ + | Care Captain/Check Airman Name | Role | Phone | + [...] Erroneous Encounter | | 2007 | | [facility] | [facility] | - Disregard | | | | and Healing [address] | Neurosurgery [address] | | | | | [address] [facility] | [address] | | | | | Health and Healing, | [place], [place] | | | | | [facility] | [address] | | | | | Floor [place], [place] | | | | | | [address] | | | | | | [phone] | | | +--------+--------+ + + + [...] Kiki Rosen 08/15/2008 10:45 AM PDTCalled in [place] 5 [address] with on refill to [phone] Tdocumented in this encounter Plan of Treatment Not on filedocumented as of this encounter Visit Diagnoses Not on filedocumented in this encounter"
--- OUTSIDE RECORDS SUMMARY | ~2020-09-03 | XMS | Encounter Summary ---
Demographics + + + | Address | [address] | | | [place] [address] | + + + | Home Phone | | + + + | Preferred Language | Unknown | + + + | Marital Status | | + + + | Worship Affiliation | NON | + + + | Race | or | + + + | Ethnic Group | Not or | + + + Author + + + | Author | [facility] | + + + | Organization | [facility] [employer] [facility] | + [...] Team Providers + +------+ + | Care Degreasing Wheel Operator Name | Role | Phone | [...] | | | | | [address] [place] [place] [facility] | [address] | | | | | Health and Healing, | [place], [place] | | | | | | [address] | | | | | Floor [place], [place] | | | | | | [address] | | | | | | [phone] | | | +--------+ + + + [...] 06/04/2009 2:50 PM PDTSp[facility] prior. Having incisional [...]
--- OUTSIDE RECORDS SUMMARY | ~2020-09-03 | XMS | Encounter Summary ---
Demographics + + + | Address | [address] | | | [place] [address] | + + + | Home Phone [...] + + + | Author | [facility] | | | and [place] | + + + | Organization | [facility] | | | and [place] [...] Providers + +------+ + | Care Associate Buyer Name | Role | Phone | + +------+ + PCP | Unavailable | + +------+ + Encounter Details +--------+ + + + + | Date | Type | Department | Care Team | Description | +--------+ + + + + | 10/12/ | Hospital | [facility] | | | | 1991 | Encounter | MED [facility] | | | | | | HEALTH [facility] [address] | | | | | | [place], | | | | | | [place] [address] | | | | | | [phone] | | | +--------+ + + + [...]
--- OUTSIDE RECORDS SUMMARY | ~2020-09-03 | XMS | Encounter Summary ---
Demographics + + + | Address | [address] | | | [place] [address] | + + + | Home Phone [...] + + + | Author | [facility] [employer] [facility] | + + + | Organization | [facility] [employer] [facility] | + + + | Address | Unknown | + + + | Phone | Unavailable | + + + Support + + +---------+ + | Name | Relationship | Address | Phone | + + +---------+ + | Ruby Au | ECON | Unknown | | + + +---------+ + Care Team Providers + +------+ + | Care Motion Graphics Artist Name | Role | Phone | + +------+ + | Brenden Benavides MD | PCP | | + +------+ + Reason for Visit +--------+--------+ + | Reason | Onset | Comments | | | Date | | +--------+--------+ + | Other | 09/22/ | | | | 2005 | | +--------+--------+ + Encounter Details +--------+ + + + + | Date | Type | Department | Care Team | Description | +--------+ + + + + | 09/22/ | Telephone | Neurosurgery [address] | [address] | Other | | 2005 | | [place] | Jt Yung | | | | | [place] Mailcode:OP14B | [place], | | | | | [facility] | [place] [address] | | | | | [place], [place] | | | | | | [address] | | | | | | [phone] | | | +--------+ + + + [...] encounter Miscellaneous Notes Telephone Encounter - Monica Paz - 09/22/2006 11:25 AM PDTPt. called and would like t o speak with you. She had her appt. yesterday with Dr. Currie. You should have his note in you r In Basket in [employer]. Annabella's # is [phone]. documented in this encounter Plan of Treatment Not on filedocumented as of this encounter Visit Diagnoses Not on filedocumented in this encounter"
--- OUTSIDE RECORDS SUMMARY | ~2020-09-03 | XMS | Encounter Summary ---
Demographics + + + | Address | [address] | | | [place] [address] | + + + | Home Phone | | + + + | Preferred Language | Unknown | + + + | Marital Status | | + + + | Hinduism Affiliation | NON | + + + | Race | or | + + + | Ethnic Group | Not or | + + + Author + + + | Author | [facility] | + + + | Organization | [facility] [employer] [facility] | + + + | Address | Unknown | + + + | Phone | Unavailable | + + + Support + + +---------+ + | Name | Relationship | Address | Phone | + + +---------+ + | Ruby Au | ECON | Unknown | | + + +---------+ + Care Team Providers + +------+ + | Care Cap And Hat Production Supervisor Name | Role | Phone | [...] Request (Pt | | 2006 | | [place] | DANIELITO Hammer | requests more pain | | | | Oculoplastics at | [place], [place] | medication) | | | | [address] | [address] | | | | | [address] | [phone] | | | | | [facility] [place] | | | | | | [facility], [address] [place] [address] | | | | | | [place] [address] | | | | | | [phone] | | | +--------+--------+ + + + [...]
--- OUTSIDE RECORDS SUMMARY | ~2020-09-03 | XMS | Encounter Summary ---
Demographics + + + | Address | [address] | | | [place] [address] | + + + | Home Phone [...] + | Organization | [facility] | [...] Team Providers + +------+ + | Care Taker Off Braker Machine Name | Role | Phone | + +------+ + PCP | Unavailable | + +------+ + Encounter Details +--------+ + + + + | Date | Type | Department | Care Team | Description | +--------+ + + + + | 09/30/ | Hospital | [facility] | | | | 1991 | Encounter | MED CTR [facility] | | | | | | HEALTH [facility] [address] | | | | | | [place], | | | | | | [place] [address] | | | | | | [phone] | | | +--------+ + + + [...]
--- OUTSIDE RECORDS SUMMARY | ~2020-09-03 | XMS | Encounter Summary ---
Demographics + + + | Address | [address] | | | [place] [address] | + + + | Home Phone [...] + + + | Author | [facility] | + + + | Organization | [facility] [employer] [facility] | + + + | Address | Unknown | + + + | Phone | Unavailable | + + + Support + + +---------+ + | Name | Relationship | Address | Phone | + + +---------+ + | Ruby Au | ECON | Unknown | | + + +---------+ + Care Team Providers + +------+ + | Care Unisaw Operator Name | Role | Phone | + +------+ + | Dennis Maddox | PCP | | + +------+ + Encounter Details +--------+ + + + + | Date | Type | Department | Care Team | Description | +--------+ + + + + | 02/28/ | Emergency | [facility] Emergency | | | | 2013 - | | Department [address] | | | | | [address] | | | | 03/01/ | | [facility] | | | | 2013 | | [place], [place] | | | | | | [address] | | | | | | [phone] | | | +--------+ + + + [...] documented as of this encounter Miscellaneous Notes Comm Diamond Carey - 02/28/2014 11:55 PM PDTBoth 's were advised that [facility] I S CURRENTLY [facility] BEDS. Dr. Rucker connected with Dr Mike Joel. Pt , hx diabetes, no respiratory hx, had pre op chest xray a coup le days ago, it was normal, had right rotator cuff surgery afternoon, came in last night c/o sob, hr in the one teens, rr 24, sats were upper 80's room air, low 90's on 6L, howell s decreased breath sounds on the right, on chest xray only half lung volume ?, complete atel ectasis with kellen diaphragm, had nerve blocks in her neck, pt is a smoker, 's discuss. CONSULT ONLY, no transfer. P DTComm Diamond Carey - 02/28/2014 11:51 PM PDTDr. Joel calls for consult with Pulmonology. Paged Dr. Rucker. documented in this encounter Plan of Treatment Not on filedocumented as of this encounter Visit Diagnoses Not on filedocumented in this encounter"
--- OUTSIDE RECORDS SUMMARY | ~2020-09-03 | XMS | Encounter Summary ---
Demographics + + + | Address | [address] | | | [place] [address] | + + + | Home Phone | | + + + | Preferred Language | Unknown | + + + | Marital Status | | + + + | Baptism Affiliation | Unknown | + + + | Race | or | + + + | Ethnic Group | Not or | + + + Author + + + | Author | [facility] | | | and [place] | + + + | Organization | [facility] | | | and [place] [...] Team Providers + +------+ + | Care Storm Door Maker Name | Role | Phone | + +------+ + PCP | Unavailable | + +------+ + Encounter Details +--------+ + + + + | Date | Type | Department | Care Team | Description | +--------+ + + + + | 10/22/ | Hospital | [facility] | | | | 1991 - | Encounter | [facility] | | | | | | [facility] [address] | | | | 10/24/ | | [place] | | | | 1991 | | [place] [address] | | | | | | [phone] | | | +--------+ + + + [...]
--- OUTSIDE RECORDS SUMMARY | ~2020-09-03 | XMS | Encounter Summary ---
Demographics + + + | Address | [address] | | | [place] [address] | + + + | Home Phone | | + + + | Preferred Language | Unknown | + + + | Marital Status | | + + + | Sabianism Affiliation | Unknown | + + + | Race | or | + + + | Ethnic Group | Not or | + + + Author + + + | Author | [facility] | | | and [place] | + + + | Organization | [facility] | | | and [place] | [...] Team Providers + +------+ + | Care Scrape Gatherer Name | Role | Phone | + [...] | Physical | Diagnoses | Jennings, | Dick, Amanuel | | | Services | Medicine and | Numbness of | Amanuel E Aimee, | Bud Yu MD [address] | | | Required | Rehabilitatio | left hand | [address] | | | | n | Weakness of | [address] | [place], | | | | | both hands | [place], | [place] [address] | | | | | [place] left | [place] [address] | Phone: | | | | | wrist Pain | Phone: | [phone] | | | | | of right | [phone] | Fax: | | | | | thumb | Fax: | [phone] | | | | | Trigger | [phone] | | | | | | finger of | | | | | | | right thumb | | | | | | | Procedures | | | | | | | AK MOTOR | | | | | | | &/SENS /> | | | | | | | NRV CNDJ | | | | | | | PRECONF | | | | | | | ELTRODE LIMB | | | | | | | [place] NEEDLE | | | | | | [...] | Orthopedic | Diagnoses | Dick, | Krishan, | | | Services | Surgery | Pain of | Amanuel Yu MD | Luís Waters MD | | | Required | | right thumb | [address] | [address] | | | | | Trigger | [address] | [address] | | | | | finger of | [place], | [place] | | | | | right thumb | [place] [address] | [address] | | | | | | Phone: | Phone: | | | | | | [phone] | [phone] | | | | | | Fax: | Fax: | | | | | | [phone] | [phone] | +--------+ + + + + + [...] | | Rehabilitatio | tunnel | 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[address] | [address] | | | | n | syndrome on | | [place], | | | | | left | [place] | [place] [address] | | | | | | [address] | Phone: | | | | | | [place], | [phone] | | | | | | [place] [address] | Fax: | | | | | | Phone: | [phone] | | | | | | [phone] | | | | | | | Fax: | | | | | | | [phone] | | +--------+--------+ + + + + Encounter Details +--------+---------+ + + + | Date | Type | Department | Care Team | Description | +--------+---------+ + + + | 01/03/ | Office | [facility] | Amanuel Jennings, | Numbness of left | | 2018 | Visit | PHYSIATRY [address] | MD [address] | hand (Primary Dx); | | | | [address] | [place], [place] | Weakness of both | | | | [place] | [address] | hands; Mass of left | | | | [address] | | wrist; Pain of right | | | | [phone] | | thumb; Trigger | | | [...] encounter Patient Instructions Patient Instructions Adelaide Santa, Teletype Adjuster - 01/03/2019 1:00 PM PSTConmaurice t o [...] Physical Medicine & Rehabilitation Consult Referring Provider: Amnada Herzog P* Date of Service: 01/03/19 Patient [...] disorder Diabetes mellitus type 2 in obese ([facility]) Gastroesophageal reflux disease Heroin dependence ([facility]) Hoarse Hypertensive disorder Insomnia with sleep apnea IV drug abuse ([facility]) Low back strain Numbness of left hand Obstructive sleep apnea of adult Opioid dependence on agonist therapy ([facility]) Other chronic pain Panic disorder without agoraphobia with severe panic attacks Polysubstance dependence ([facility]) Sedative, hypnotic or anxiolytic dependence, in remission ([facility]) Tobacco user Trigger finger of right hand [...] wrist dorsiflexion , finger abduction, and right disability coordinator. 4/5 hand disability coordinator on the left Reflexes: 2+ normal and [...] scribed by in my presence, Adelaide Santa, Teletype Adjuster and are both accurate and comp lete. [...] + +--------+ + + | * [facility] | Outpatient | Routin | Numbness [...]
--- OUTSIDE RECORDS SUMMARY | ~2020-09-03 | XMS | Encounter Summary ---
Demographics + + + | Address | [address] | | | [place] [address] | + + + | Home Phone [...] | Organization | [facility] | | | and [place] | [...] Team Providers + +------+ + | Care Shared Services And Outsourcing Manager Name | Role | Phone | + +------+ + PCP | Unavailable | + +------+ + Encounter Details +--------+ + + + + | Date | Type | Department | Care Team | Description | +--------+ + + + + | 08/21/ | Hospital | [facility] | | | | 1991 | Encounter | MED CTR EMERGENCY | | | | | | CENTER [address] | | | | | | [place] | | | | | | [address] | | | | | | [phone] | | | +--------+ + + + [...]
--- OUTSIDE RECORDS SUMMARY | ~2020-09-03 | XMS | Encounter Summary ---
Demographics + + + | Address | [address] | | | [place] [address] | + + + | Home Phone [...] | [facility] | + + + | Organization | [facility] | + + + | Address | Unknown | + + + | Phone | Unavailable | + + + Support + + +---------+ + | Name | Relationship | Address | Phone | + + +---------+ + | Ruby Au | ECON | Unknown | | + + +---------+ + Care Team Providers + +------+ + | Care Mason Liner Name | Role | Phone | [...] | | | [facility] for | [place], [place] | | | | | Health and Healing, | [address] | | | | | Building | [phone] | | | | | floor [place], [place] | | | | | | [address] | | | | | | [phone] | | | +--------+ + + + [...]
--- OUTSIDE RECORDS SUMMARY | ~2020-09-03 | XMS | Encounter Summary ---
Demographics + + + | Address | [address] | | | [place] [address] | + + + | Home Phone [...] + | Author | [facility] | + + + | Organization | [facility] [facility] | + [...] Team Providers + +------+ + | Care Dynamics Ax Developer Name | Role | Phone | [...] Flores | | | | | | [facility] | | | | | | [place], [place] | | | | | | [address] | | | | | | [phone] | | | +--------+ + + + [...] +---------+--------+ + documented as of this encounter ED Notes Juan Veras MD - 03/09/2013 11:09 AM PDT37 yo male coming by ambulance NS was paged about her pseudotumor cerebri, with LP shunt in 2007 non-function Ophth has not evaluated as patient no shows If she's here for psuedo and headache, then needs ophth If no papilledema then no NSG emergency. If with rapid worsening of vision then NSG 13 11:13 AM PDTdocumented in this encounter Miscellaneous Notes [facility] Cindy Polo - 03/09/2013 1:20 PM PDTRef did not know pt was originally suppose to be an ed referral and admitted her. Connected ref to Dr Pedroza (nsu) past 4 days howell, constant worsening, double vision and black dots in eyes, pt is now admitted at ref, Dr Pedroza does not think pt needs to be transferred at this time because it is not certain if this is a nsu issue. Per Dr Pedroza pt needs a work up to find out if her shunt is actually malfuctioning. HOLD [address] [facility] - Macy Jacques - 03/09/2013 1:17 PM PDTPatient was supposed to be ED referral, now is being admitt ed at [facility], Dr. Cooney calling for consult, possible transfer. Paged Dr. Pedroza. El ectronically signed by Macy Jacques at 03/09/2013 1:18 PM PDTHenry [facility] - Maryellen Mathew - 03/09/2013 11:[address] Veras, 37 yo f , second hand to Dr Holland from [facility], document ed in this encounter Plan of Treatment Not on filedocumented as of this encounter Visit Diagnoses Not on filedocumented in this encounter"
--- OUTSIDE RECORDS SUMMARY | ~2020-09-03 | XMS | Encounter Summary ---
Demographics + + + | Address | [address] | | | [place] [address] | + + + | Home Phone [...] + + | Author | [facility] | + + + | Organization | [facility] [employer] [facility] | + + + | Address | Unknown | + + + | Phone | Unavailable | + + + Support + + +---------+ + | Name | Relationship | Address | Phone | + + +---------+ + | Ruby Au | ECON | Unknown | | + + +---------+ + Care Team Providers + +------+ + | Care Hip Hop Dance Instructor Name | Role | Phone | [...] Cerebri | | 2006 | Visit | [place] | Cassi Hammer | (Primary Dx) | | | | Oculoplastics at | [place], [place] | | | | | [address] | [address] | | | | | [place] [address] | [phone] | | | | | [facility] | | | | | | [address] | | | | | | [place] [address] | | | | | | [phone] | | | +--------+---------+ + + + [...]
--- OUTSIDE RECORDS SUMMARY | ~2020-09-03 | XMS | Encounter Summary ---
Demographics + + + | Address | [address] | | | [place] [address] | + + + | Home Phone [...] + + + | Author | [facility] | + + + | Organization | [facility] | + + + | Address | Unknown | + + + | Phone | Unavailable | + + + Support + + +---------+ + | Name | Relationship | Address | Phone | + + +---------+ + | Ruby Au | ECON | Unknown | | + + +---------+ + Care Team Providers + +------+ + | Care Paper And Prints Restorer Name | Role | Phone | + [...] | Visit | Medicine Clinic at | CLUB ROOM ATTENDANT [address] [facility] | Pre-Operative | | | | [facility] 4th Floor [address] | Examination (Primary | | | | [address] | [place], [place] | Dx); Pseudotumor | | | | Mailcode: [id number] | [id number] | Cerebri; Encounter | | | | [facility] | [phone] | for Long-Term | | | | and Healing, | | (Current) Use of | | | | Building 1,4th Floor | | Anticoagulants | | | | [place], [place] | | | | | | [address] | | | | | | [phone] | | | +--------+---------+ + + + [...] [facility] [address] [facility],4th [place] [phone] documented in this encou nter Plan of Treatment + + +--------+ + + | Name | Type | Priori | Associated Diagnoses | Order Schedule | | | | ty | | | + + +--------+ + + | [place] COLLECTION VENOUS | Procedures | Routin | [...] DEPARTMENT OF | [address] | [place] [address] | | | PATHOLOGY | [address] | | | + + + + + | [facility] DEPARTMENT OF | [address] [facility] | [place] [address] | | | PATHOLOGY | [address] [...] | 29.5Comment: | 26.0 - 36.0 | [facility] | | | | APTT Therapeutic [...] | + + + + + | [facility] | [address] [place] [address] | [place] [address] | | | PATHOLOGY | [address] | | | + + + + + | [facility] | [address] [facility] | [place] [address] | | | PATHOLOGY | [address] [...] + + + + + | [facility] DEPARTMENT OF | [address] | [place] [address] | | | PATHOLOGY | [address] | | | + + + + + | [facility] DEPARTMENT OF | [address] | [place] [address] | | | PATHOLOGY | [address] [...] + + + + + | [facility] DEPARTMENT OF | [address] [facility] | [place] [address] | | | PATHOLOGY | [address] | | | + + + + + | [facility] DEPARTMENT OF | [address] [facility] | [place] [address] | | | PATHOLOGY | [address] [...] Performed At | + + + | [id number] Estimated GFR > 60 mL/min/1.73 sq m if non- | [facility] | | [place] [id number] Estimated GFR > 60 mL/min/1.73 sq m if | DEPARTMENT OF | | [place] GFR is estimated using the MDRD equation [...] | + + + + + | [facility] | [address] | [place] [address] | | | PATHOLOGY | [address] | | | + + + + + | [facility] DEPARTMENT OF | [address] | [place] [address] | | | PATHOLOGY | [address] [...] + + + + + | [facility] DEPARTMENT | [address] [place] [address] | [place] [address] | | | PATHOLOGY | [address] | | | + + + + + | [facility] DEPARTMENT OF | [facility] | [place] [address] | | | PATHOLOGY | [address] | | | + + + + + documented in this encounter Visit Diagnoses + + | Diagnosis | + + | Other specified pre-operative examination - Primary | + + | Pseudotumor cerebri Benign intracranial hypertension | + + | buttermaker helper (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
--- OUTSIDE RECORDS SUMMARY | ~2020-09-03 | XMS | Encounter Summary ---
Demographics + + + | Address | [address] | | | [place] [address] | + + + | Home Phone [...] Organization | [facility] | | | and [place] | [...] Team Providers + +------+ + | Care Handhole Machine Operator Name | Role | Phone | + +------+ + PCP | Unavailable | + +------+ + Encounter Details +--------+ + + + + | Date | Type | Department | Care Team | Description | +--------+ + + + + | 09/30/ | Hospital | [facility] | | | | 1990 | Encounter | MED CTR EMERGENCY | | | | | | CENTER [address] | | | | | | [place] | | | | | | [address] | | | | | | [phone] | | | +--------+ + + + [...]
--- OUTSIDE RECORDS SUMMARY | ~2020-09-03 | XMS | Encounter Summary ---
Demographics + + + | Address | [address] | | | [place] [address] | + + + | Home Phone [...] + + | Author | [facility] | + + + | Organization | [facility] | + + + | Address | Unknown | + + + | Phone | Unavailable | + + + Support + + +---------+ + | Name | Relationship | Address | Phone | + + +---------+ + | Ruby Au | ECON | Unknown | | + + +---------+ + Care Team Providers + +------+ + | Care Caramel Cutter Hand Name | Role | Phone | [...] Letter From | | 2007 | | [facility] | [address] | Specialist | | | | and Healing [address] | [place], [place] | | | | | [address] [facility] | [address] | | | | | Health and Healing, | [phone] | | | | | | | | | | | Floor [place], [place] | | | | | | [address] | | | | | | [phone] | | | +--------+ + + + [...] cerbral angiogram on 05/07/08. Her Employer is [employer]. Please fax letter to: Michael Dxitrveatwugeh signed by Delma Cadet at 05/09/2008 9:34 AM PDTTelephone Encounter - David Frausto - 05/09/2008 9:23 AM PDTOpened in error documented in this encounter Plan of Treatment Not on filedocumented as of this encounter Visit Diagnoses Not on filedocumented in this encounter"
--- OUTSIDE RECORDS SUMMARY | ~2020-09-03 | XMS | Encounter Summary ---
Demographics + + + | Address | [address] | | | [place] [address] | + + + | Home Phone | | + + + | Preferred Language | Unknown | + + + | Marital Status | | + + + | Baptist Affiliation | NON | + + + | Race | or | + + + | Ethnic Group | Not or | + + + Author + + + | Author | [facility] | + + + | Organization | [facility] [employer] [facility] | [...] Team Providers + +------+ + | Care Neurosurgery Research Director Name | Role | Phone | + +------+ + | Pedro Luis Sams MD | PCP | | + +------+ + Reason for Visit + +--------+ + | Reason | Onset | Comments | | | Date | | + +--------+ + | Headache | 03/11/ | | | | 2012 | | + +--------+ + Encounter Details +--------+ + + + + | Date | Type | Department | Care Team | Description | +--------+ + + + + | 03/11/ | Telephone | Neurosurgery at | Eladio Pang MD | Headache | | 2012 | | [facility] [address] | [address] | | | | | [facility] | [place], [place] | | | | | Health and Healing, | [address] | | | | | [facility] | [phone] | | | | | floor [place], [place] | | | | | | [address] | | | | | | [phone] | | | +--------+ + + + [...] Telephone Encounter - Eladio Pang MD - 03/11/2013 7:56 AM PDTPatient calls with multiple complaints. She notes that 5 days ago, she weighed 280 lbs and today she weighs 301 lbs. She thinks there is something wrong with her LP shunt. She has headaches that get better wh en lying down. She is currently driving to [facility]. She thinks she might be retaining water somewhere. I indicated that I could not evaluate her over the phone and I a lso couldn't guarantee a transfer to [facility]. She verbalized understanding. Electronically sig brad by Eladio Pang MD at 03/11/2013 8:00 AM PDTdocumented in this encounter Plan of Treatment Not on filedocumented as of this encounter Visit Diagnoses Not on filedocumented in this encounter"
--- OUTSIDE RECORDS SUMMARY | ~2020-09-03 | XMS | Encounter Summary ---
Demographics + + + | Address | [address] | | | [place] [address] | + + + | Home Phone | | + + + | Preferred Language | Unknown | + + + | Marital Status | | + + + | Congregational Affiliation | Unknown | + + + | Race | or | + + + | Ethnic Group | Not or | + + + Author + + + | Author | [facility] | | | and [place] | + + + | Organization | [facility] | | | and [place] [...] Team Providers + +------+ + | Care Oxygen Furnace Operator Name | Role | Phone | + +------+ + PCP | Unavailable | + +------+ + Encounter Details +--------+ + + + + | Date | Type | Department | Care Team | Description | +--------+ + + + + | 05/18/ | Hospital | [facility] | | | | 1991 | Encounter | MED CTR [facility]ENS | | | | | | HEALTH [facility] [address] | | | | | | [place], | | | | | | [place] [address] | | | | | | [phone] | | | +--------+ + + + [...]
--- OUTSIDE RECORDS SUMMARY | ~2020-09-03 | XMS | Encounter Summary ---
Demographics + + + | Address | [address] | | | [place] [address] | + + + | Home Phone [...] + + | Author | [facility] [employer] [facility] | + + + | Organization | [facility] | + + + | Address | Unknown | + + + | Phone | Unavailable | + + + Support + + +---------+ + | Name | Relationship | Address | Phone | + + +---------+ + | Ruby Au | ECON | Unknown | | + + +---------+ + Care Team Providers + +------+ + | Care Cloth Coverer Name | Role | Phone | [...] | [place] | | | | [address] for | [place], [place] | | | | | Health and Healing, | [address] | | | | | [facility] | [phone] | | | | | floor [place], [place] | | | | | | [address] | | | | | | [phone] | | | +--------+ + + + [...] 10:27 AM PDTRouting message to re sidedanish relations liaison, Dr Muna Holland elephone Encounter - Monica Pizarro LPN - 03/09/2013 10:22 AM PDTReceived vm from community health nurse with [facility] notifying Dr. Pedroza s team that they are transporting her this morning after [address] [facility]. [phone] is Alexsander gamble, the nurse's phone number. [...] Hopkins PA -C - 03/06/2013 10:21 AM [id number] with a long h/o pseudotumor treated with [...] improve, we will contact the insurance co the [facility] again see whether we will get approval for stent placement" Has been followed by Dr. Osorio/Dr. Mcgrath at [facility]. She has had several no-show appts with Dr. Mcgrath in late 2011. Dr. Osorio's last documented phone encounter 09/2011: "I received a call from the patient today. She missed her scheduled appointment here at [facility]. The patient is currently unable to travel to [place] since she is caring for her mother who is ill. The patient has an appt scheduled with an gas main and line fitter in her local area nex t week. [...] her to see the financial counselor at [facility]." Can see pt in clinic for eval of LPS (for possible explant) and possible stent placement. Pt should also continue FU with Dr. Osorio or Dr. Mcgrath for a thorough vision exam. Please coordinate appt with Dr. Beard/Dr. Pedroza for any Tuesday, at pts convenience. Also n eeds financial accounting analyst/insurance eval if stent and LPS explant will [...] come into see Dr. Pedroza's team at [facility]. documented in this encounter Plan of Treatment Not on filedocumented as of this encounter Visit Diagnoses Not on filedocumented in this encounter
--- OUTSIDE RECORDS SUMMARY | ~2020-09-03 | XMS | Encounter Summary ---
Demographics + + + | Address | [address] | | | [place] [address] | + + + | Home Phone [...] | Organization | [facility] | | | and [place] [...] Team Providers + +------+ + | Care Fundraising Director Name | Role | Phone | + +------+ + PCP | Unavailable | + +------+ + Encounter Details +--------+ + + + + | Date | Type | Department | Care Team | Description | +--------+ + + + + | 05/28/ | Hospital | [facility] | | | | 1991 | Encounter | MED CTR EMERGENCY | | | | | | CENTER [address] | | | | | | [place] | | | | | | [address] | | | | | | [phone] | | | +--------+ + + + [...]
--- OUTSIDE RECORDS SUMMARY | ~2020-09-03 | XMS | Encounter Summary ---
Demographics + + + | Address | [address] | | | [place] [address] | + + + | Home Phone [...] | Organization | [facility] | | | and [...] Team Providers + +------+ + | Care Hurricane Tracker Name | Role | Phone | + +------+ + PCP | Unavailable | + +------+ + Encounter Details +--------+ + + + + | Date | Type | Department | Care Team | Description | +--------+ + + + + | 04/20/ | Hospital | [facility] | | | | 1995 | Encounter | MED CTR EMERGENCY | | | | | | CENTER [address] | | | | | | [place] | | | | | | [address] | | | | | | [phone] | | | +--------+ + + + [...]
--- OUTSIDE RECORDS SUMMARY | ~2020-09-03 | XMS | Encounter Summary ---
Demographics + + + | Address | [address] | | | [place] [address] | + + + | Home Phone [...] | Organization | [facility] | | | and [place] [...] Team Providers + +------+ + | Care Ware Finisher Name | Role | Phone | + +------+ + PCP | Unavailable | + +------+ + Encounter Details +--------+ + + + + | Date | Type | Department | Care Team | Description | +--------+ + + + + | 11/04/ | Hospital | [facility] | Unknown, | | | 2005 | Encounter | MED CTR XRAY [address] | Practitioner, MD . | | | | | [address] [place] | | | | | | [place] [address] | (Fax) | | | | | [phone] | | | +--------+ + + + [...]
--- OUTSIDE RECORDS SUMMARY | ~2020-09-03 | XMS | Encounter Summary ---
Demographics + + + | Address | [address] | | | [place] [address] | + + + | Home Phone [...] | Author | [facility] | + + + | Organization | [facility] [employer] [facility] [...] Team Providers + +------+ + | Care Candle Pourer Name | Role | Phone | + +------+ + | Pedro Luis Sams MD | PCP | | + +------+ + Encounter Details +--------+ + + + + | Date | Type | Department | Care Team | Description | +--------+ + + + + | 08/31/ | Telephone | [facility] | Leticia Pitts MD | | | 2010 | | [facility]mol | | | | | | ogy at [facility] [address] | | | | | | [address] [facility] for | | | | | | Health and Healing, | | | | | | Building | | | | | | Floor [place], [place] | | | | | | [address] | | | | | | [phone] | | | +--------+ + + + [...] repeat exam. Leticia Pitts M.D. Ophthalmology Resident [facility] documented in this encou nter Plan of Treatment Not on filedocumented as of this encounter Visit Diagnoses Not on filedocumented in this encounter"
--- OUTSIDE RECORDS SUMMARY | ~2020-09-03 | XMS | Encounter Summary ---
Demographics + + + | Address | [address] | | | [place] [address] | + + + | Home Phone [...] + + | Author | [facility] | + + + | Organization | [facility] [employer] [facility] | + + + | Address | Unknown | + + + | Phone | Unavailable | + + + Support + + +---------+ + | Name | Relationship | Address | Phone | + + +---------+ + | Ruby Au | ECON | Unknown | | + + +---------+ + Care Team Providers + +------+ + | Care Pheresis Nurse Name | Role | Phone | [...] | | | [address] for | [place], [place] | | | | | Health and Healing, | [address] | | | | | [facility] | [phone] | | | | | floor [place], [place] | | | | | | [address] | | | | | | [phone] | | | +--------+---------+ + + + [...] wanted to have LP shunt instead of RADIATOR SPECIALIST shunt because she d oes not weant [...]
--- OUTSIDE RECORDS SUMMARY | ~2020-09-03 | XMS | Encounter Summary ---
Demographics + + + | Address | [address] | | | [place] [address] | + + + | Home Phone [...] Organization | [facility] | | | and [...] Team Providers + +------+ + | Care Polymer Specialist Name | Role | Phone | + +------+ + PCP | Unavailable | + +------+ + Encounter Details +--------+ + + + + | Date | Type | Department | Care Team | Description | +--------+ + + + + | 10/02/ | Hospital | [facility] | | | | 1991 | Encounter | MED CTR [facility] | | | | | | [facility] [address] | | | | | | [place], | | | | | | [place] [address] | | | | | | [phone] | | | +--------+ + + + [...]
--- OUTSIDE RECORDS SUMMARY | ~2020-09-03 | XMS | Encounter Summary ---
Demographics + + + | Address | [address] | | | [place] [address] | + + + | Home Phone [...] | Organization | [facility] | | | and [place] [...] Providers + +------+ + | Care Manager Latin Name | Role | Phone | + +------+ + PCP | Unavailable | + +------+ + Encounter Details +--------+ + + + + | Date | Type | Department | Care Team | Description | +--------+ + + + + | 07/06/ | Hospital | [facility] | Mirna Lambert | | | 2008 | Encounter | MED CTR EMERGENCY | MD [address] | | | | | CENTER [address] | [facility], | | | | | [place], [place] | [place] [address] | | | | | [address] | [phone] | | | | | [phone] | | | +--------+ + + + [...]
--- OUTSIDE RECORDS SUMMARY | ~2020-09-03 | XMS | Encounter Summary ---
Demographics + + + | Address | [address] | | | [place] [address] | + + + | Home Phone [...] Organization | [facility] [...] Team Providers + +------+ + | Care Textile Screen Printer Name | Role | Phone | + +------+ + PCP | Unavailable | + +------+ + Encounter Details +--------+ + + + + | Date | Type | Department | Care Team | Description | +--------+ + + + + | 07/07/ | Hospital | [facility] | | | | 1991 | Encounter | MED CTR EMERGENCY | | | | | | CENTER [address] | | | | | | [place] | | | | | | [address] | | | | | | [phone] | | | +--------+ + + + [...]
--- OUTSIDE RECORDS SUMMARY | ~2020-09-03 | XMS | Encounter Summary ---
Demographics + + + | Address | [address] | | | [place] [address] | + + + | Home Phone [...] + + | Author | [facility] | + + + | Organization | [facility] [...] + +------+ + | Care Middle School Humanities Teacher Name | Role | Phone | [...] | | | | | [address] | [address] | | | | | Health and Healing, | [facility] [place] | | | | | | [address] | | | | | Floor [place], [place] | | | | | | [address] | | | | | | [phone] | | | +--------+--------+ + + + [...]
--- OUTSIDE RECORDS SUMMARY | ~2020-09-03 | XMS | Encounter Summary ---
Demographics + + + | Address | [address] | | | [place] [address] | + + + | Home Phone [...] | Organization | [facility] | | | and [place] [...] Team Providers + +------+ + | Care Packer Sausage And Wiener Name | Role | Phone | + +------+ + PCP | Unavailable | + +------+ + Encounter Details +--------+ + + + + | Date | Type | Department | Care Team | Description | +--------+ + + + + | 10/29/ | Hospital | [facility] | | | | 1991 | Encounter | MED CTR EMERGENCY | | | | | | CENTER [address] | | | | | | [place] | | | | | | [address] | | | | | | [phone] | | | +--------+ + + + [...]
--- OUTSIDE RECORDS SUMMARY | ~2020-09-03 | XMS | Encounter Summary ---
Demographics + + + | Address | [address] | | | [place] [address] | + + + | Home Phone [...] + + | Author | [facility] | + + + | Organization | [facility] [...] Providers + +------+ + | Care Manager Package Name | Role | Phone | + [...] | | | | | cerebri | [address] | | | | | | Procedures | Ave | | | | | | CONSULT TO | [place], [place] | | | | | | [facility] | [address] | | | | | | | Phone: | | | | | | | [phone] | | | | | | | Fax: | | | | | | | [phone] | | +--------+--------+ + + + + [...] Cerebri | | 2005 | Visit | [facility] | [address] | (Primary Dx) | | | | Rd Mailcode:OP14B | [place], [place] | | | | | [facility] | [address] | | | | | [place], [place] | [phone] | | | | | [address] | | | | | | [phone] | | | +--------+---------+ + + + [...] pressu re. Referral to Dr. Maloney in [place], [place] where a lumboperitoneal shunt was placed and subsequently explanted due to infection and migration of the catheter tip from the peritoneal space. She feels that her symptoms were helped at the time of the placement of the shunt; the head aches and visual problems have worsened since shunt removal. She has opted to come to [facility] rather than to return to [place] based on travel convenience. Review of Systems: [...] | | + +---------+ + + | [facility] DEPARTMENT OF | | | | | RADIOLOGY | | | | + +---------+ + + documented in this encounter Visit Diagnoses + + | Diagnosis | + + | Pseudotumor cerebri - Primary Benign intracranial hypertension | + + documented in this encounter
--- OUTSIDE RECORDS SUMMARY | ~2020-09-03 | XMS | Encounter Summary ---
Demographics + + + | Address | [address] | | | [place] [address] | + + + | Home Phone [...] Organization | [facility] | | | and [place] [...] Providers + +------+ + | Care Tennis Director Name | Role | Phone | [...] [address] | | | | | CENTER [address] | [facility] | | | | | [address] [place] | [place] [address] | | | | | [address] | [phone] | | | | | [phone] | | | +--------+ + + + [...]
--- OUTSIDE RECORDS SUMMARY | ~2020-09-03 | XMS | Encounter Summary ---
Demographics + + + | Address | [address] | | | [place] [address] | + + + | Home Phone [...] + + | Author | [facility] | + + + | Organization | [facility] | + [...] Team Providers + +------+ + | Care Prosthetic Assistant Name | Role | Phone | [...] | | [place] Mailcode:OP14B | Sandra Maloney [place], | | | | | [place] | [place] [address] | | | | | [place], [place] | | | | | | [address] | | | | | | [phone] | | | +--------+ + + + [...]
--- OUTSIDE RECORDS SUMMARY | ~2020-09-03 | XMS | Encounter Summary ---
Demographics + + + | Address | [address] | | | [place] [address] | + + + | Home Phone | | + + + | Preferred Language | Unknown | + + + | Marital Status | | + + + | Catholic Affiliation | Unknown | + + + | Race | or | + + + | Ethnic Group | Not or | + + + Author + + + | Author | [facility] | | | and [place] | + + + | Organization | [facility] | | | and [place] [...] Team Providers + +------+ + | Care Billing Customer Service Representative Name | Role | Phone | [...] | | MEDICAL CENTER | [place] [address] | intracranial | | | | EMERGENCY CENTER | [address] | hypertension; Back | | | | [address] | [place] [address] | pain | | | | [place], [place] | [phone] | | | | | [address] | | | | | | [phone] | | | +--------+ + + + [...] 07/10/132043 Date of Service: 07/10/132043 Status: Signed Pipe Covering Molder: Magdiel Jansen RN (Registered Nurse) Pt stated [...] 07/10/132041 Date of Service: 07/10/132024 Status: Signed Pipe Covering Molder: Magdiel Jansen RN (Registered Nurse) Returned from radiology. Tolerated procedure well. Magdiel Jansen RN 07/10/132041 onver ludwin Transaction, Provider Unknown - 07/10/2013 8:02 PM PDT ED Notes by Magdiel Jansen RN at 07/10/132001 Author: Magdiel Jansen RN Service: (none) Author Type: Registered Nurse Filed: 07/10/132002 Date of Service: 07/10/132001 Status: Signed Pipe Covering Molder: Magdiel Jansen RN (Registered Nurse) Pt transported to radiology via gurney with tech. Magdiel Jansen RN 07/10/132002 erry Negro MD - 07/10/2013 7:29 PM PDTFormatting of this note might be different from th e original. ED Provider Notes by Anoop Flores MD at 07/10/131928 Author: Anoop Flores MD Service: (none) Author Type: Physician Filed: 07/10/132239 Date of Service: 07/10/131928 Status: Signed Pipe Covering Molder: Anoop Flores MD (Physician) [facility] Department of Emergency Medicine History of [...] shown by XR with her Dr in [place] earlier in the year. Reports grad ual [...] et. Care prior to arrival consisted of [place] twice daily, with no relief. Patient cannot catarina e NSAIDS. Patient[place] shunt [place] [address] [place] in [facility] [place], for Hydrocephalus. Patient stat es she had no problems with it until this year. Patient has been having headaches all year. Patient lives in [place], spoke with the Neurosurgeon ed educational aide, and was told to go [facility] a [facility]. PCP: [facility] Past Medical History Diagnosis Date Diabetes mellitus [...] Value Ref Range Date/Time Comprehensive metabolic panel [[id number]] (Abnormal) Collected:07/10/131946 Order Status:Completed Updated:07/10/132010 Specimen Information:Blood [...] EGFR >60 >60 mL/min/1.73m2 CBC with differential [[id number]] (Abnormal) Collected:07/10/131946 Order Status:Completed Updated:07/10/131953 Specimen Information:Blood [...] Morris MD Follow up this week [address] [facility] [address] [facility] [address] [facility] Follow up next week [address] [place] [address] [facility] Emergency Department If symptoms worsen [address] [facility] [address] Discharge Medications: New Prescriptions No new medications Additional Documentation Procedures Attending Note: Documentation assistance provided by Jade Burgos (Scribe). Information recorded by the scribe has been reviewed and validated by me. Simon nolasco with its contents. Anoop Flores MD 07/10/13 3539 onversio n Transaction, Provider Unknown - 07/10/2013 6:15 PM PDTFormatting of this note might be di fferent from the original. ED Notes by Magdiel Jansen RN at 07/10/131814 Author: Magdiel Jansen RN Service: (none) Author Type: Registered Nurse Filed: 07/10/131938 Date of Service: 07/10/131814 Status: Signed Pipe Covering Molder: Magdiel Jansen RN (Registered Nurse) Bed side [...] | + + + | ANNABELLA Waters [facility] CT HEAD WO CONTRAST HISTORY: 37 years. [...]
--- OUTSIDE RECORDS SUMMARY | ~2020-09-03 | XMS | Encounter Summary ---
Demographics + + + | Address | [address] | | | [place] [address] | + + + | Home Phone [...] + + + | Author | [facility] [employer] [facility] | + + + | Organization | [facility] [employer] [facility] [...] Team Providers + +------+ + | Care Lan Administrator Name | Role | Phone | [...] Cerebri | | 2007 | Visit | [place] | | | | | | Photography at | | | | | | [facility] [address] | | | [address] | | | | | | Eye [place], [address]th | | | | | | floor [place], [place] | | | | | | [address] | | | +--------+---------+ + + + [...] Pangjulisa was seen in the [facility] [place] Photography/Ultrasound Department today, 11/30/2006, for ultrasound OU [...]
--- OUTSIDE RECORDS SUMMARY | ~2020-09-03 | XMS | Encounter Summary ---
Demographics + + + | Address | [address] | | | [place] [address] | + + + | Home Phone [...] | [facility] | [...] Team Providers + +------+ + | Care Greaser Helper Name | Role | Phone | + +------+ + PCP | Unavailable | + +------+ + Encounter Details +--------+ + + + + | Date | Type | Department | Care Team | Description | +--------+ + + + + | 09/03/ | Hospital | [facility] | | | | 1991 | Encounter | [facility] | | | | | | [facility] [address] | | | | | | [place], | | | | | | [place] [address] | | | | | | [phone] | | | +--------+ + + + [...]
--- OUTSIDE RECORDS SUMMARY | ~2020-09-03 | XMS | Encounter Summary ---
Demographics + + + | Address | [address] | | | [place] [address] | + + + | Home Phone [...] + + | Author | [facility] [facility] | + + + | Organization | [facility] [employer] [facility] | + + [...] Providers + +------+ + | Care Parts Sales Manager Name | Role | Phone [...] Ave | | | | | Ave [facility] | [place], [place] | | | | | Health and Healing, | [address] | | | | | Building [address] | [phone] | | | | | floor [place], [place] | | | | | | [address] | | | | | | [phone] | | | +--------+ + + + [...] encounter Miscellaneous Notes Telephone Encounter - Monica Pizaror LPN - 07/10/2013 2:19 PM PDTReceived call from kenia mccabe stating her shunt is dislodged and she hasn't had a problem until recently. A little t o the side of the scar "severe pain shock there." Patient reports severe headache for the la st two days with nausea, fever yesterday. Jacques Clark present to local ED for evaluation, onelia peng is agreeable. do cumented in this encounter Plan of Treatment Not on filedocumented as of this encounter Visit Diagnoses Not on filedocumented in this encounter
--- OUTSIDE RECORDS SUMMARY | ~2020-09-03 | XMS | Encounter Summary ---
Demographics + + + | Address | [address] | | | [place] [address] | + + + | Home Phone [...] + | Organization | [facility] [...] Team Providers + +------+ + | Care Char Filter Operator Name | Role | Phone | + +------+ + PCP | Unavailable | + +------+ + Encounter Details +--------+ + + + + | Date | Type | Department | Care Team | Description | +--------+ + + + + | 11/22/ | Hospital | [facility] | | | | 1995 | Encounter | MED CTR EMERGENCY | | | | | | CENTER [address] | | | | | | [place] | | | | | | [address] | | | | | | [phone] | | | +--------+ + + + [...]
--- OUTSIDE RECORDS SUMMARY | ~2020-09-03 | XMS | Encounter Summary ---
Demographics + + + | Address | [address] | | | [place] [address] | + + + | Home Phone [...] + + | Author | [facility] | + + + | Organization | [facility] [facility] | [...] Providers + +------+ + | Care Airport Operations Specialist Name | Role | Phone | + +------+ + | Brenden Benavides MD | PCP | | + +------+ + Reason for Visit +--------+--------+ + | Reason | Onset | Comments | | | Date | | +--------+--------+ + | Other | 09/28/ | | | | 2005 | | [...] | | [place] Mailcode:OP14B | Sandra Maloney [place], | | | | | [facility] | [place] [address] | | | | | [place], [place] | | | | | | [address] | | | | | | [phone] | | | +--------+ + + + [...] Notes Telephone Encounter - Monica Paz - 09/28/2006 2:34 PM Enoch called and would lik e to speak with you about her [facility] appt.that she had on 09/19. She's very worried about losin g vision in her eye and her sx seem to be increasing. Her phone # is [phone]. documented in this encou nter Plan of Treatment Not on filedocumented as of this encounter Visit Diagnoses Not on filedocumented in this encounter"
--- OUTSIDE RECORDS SUMMARY | ~2020-09-03 | XMS | Encounter Summary ---
Demographics + + + | Address | [address] | | | [place] [address] | + + + | Home Phone [...] | Author | [facility] [employer] [facility] | + + + | Organization | [facility] [employer] [facility] | + + + | Address | Unknown | + + + | Phone | Unavailable | + + + Support + + +---------+ + | Name | Relationship | Address | Phone | + + +---------+ + | Ruby Au | ECON | Unknown | | + + +---------+ + Care Team Providers + +------+ + | Care Advice Nurse Name | Role | Phone | + +------+ + | Brenden Benavides MD | PCP | | + +------+ + Encounter Details +--------+ + + + + | Date | Type | Department | Care Team | Description | +--------+ + + + + | 01/05/ | Telephone | [facility] | Brad Currie MD | | | 2006 | | [place] | | | | | | Neuro-Ophthalmology | | | | | | [address] [facility] | | | | | | Mailcode: PATTI | | | | | | [place] [address] | | | | | | [phone] | | | +--------+ + + + [...] this encounter Miscellaneous Notes Telephone Encounter - Jill Pandey - 01/06/2007 2:00 PM PSTMsMike Au called today to a sk what time her appointment was on 01/19/07. I pulled up her appointment desk and informed her that we did not have her scheduled at all for a follow up appointment. Ms. Au was very agitated with this news. She claimed that she had made an appointment when she checke d out from her last appointment (on 12/19/06) and that she had an appointment card filled out for her at the desk. When I asked her if she still had that card so we could double check the date and time, she said she was unsure of where it was. She said she might have given i t to her transportation design engineer. I apologized and informed her that we still did not have he r scheduled in our computer system but that I would be happy to schedule her now. I did not have an opening on 01/19 but I could find her an opening soon after that. She was very angr y with this news and voiced her opinion about the inconviences this would cause and accused me of incompetence in my job for quite awhile after this. I apologized to her if our office made a mistake but told her we still had plenty of time to make an appointment and schedule this with her transportation company. I offered to call the company myself so that I could explain to them that the change in date was our error and not hers. Ms. Au was angry at this suggestion as well, and told me that she could handle telling them I made a mistake . I then asked Ms. Au if she could stop being rude to me so that we could schedule her appointment. She responded by asking me how I could dare call her rude. She said, "Where d o you get off calling me eveliokiran, I am a patient who is trying to get what she needs from you a nd that is all." I then told her she was always rude when she called me. She was angry and said she had no idea where I got that from. She claimed that she had not yelled at me or i nsulted me and was very adament that I explain the comment and would not allow me to steer t he conversation back to scheduling an appointment for her. I apologized for the comment and told her that, since Dr. 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 It would have to be later in the afternoon, like 3:15 pm. At first, she would not acknowlege if she would take the appointment but would continue to talk about the inconvience so late a time would have for her. I asked her, again, if I might assist h er by calling her transportation and explaining the scheduling error. She refused this offe r and said to schedule her and she would call me if transportation could not be here so late . I told her to call me if I could do anything else to help her and she hung up, obviously still upset with me. documented in this encounte r Plan of Treatment Not on filedocumented as of this encounter Visit Diagnoses Not on filedocumented in this encounter
--- OUTSIDE RECORDS SUMMARY | ~2020-09-03 | XMS | Encounter Summary ---
Demographics + + + | Address | [address] | | | [place] [address] | + + + | Home Phone [...] + + | Author | [facility] [employer] [facility] | + + + | Organization | [facility] [employer] [facility] | + [...] Team Providers + +------+ + | Care Spray Cementer Name | Role | Phone | + [...] Cerebri; | | 2005 | Visit | [place] | | Common Migraine | | | | Neuro-Ophthalmology | | without Mention of | | | | 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
--- OUTSIDE RECORDS SUMMARY | ~2020-09-03 | XMS | Encounter Summary ---
Demographics + + + | Address | [address] | | | [place] [address] | + + + | Home Phone [...] | Organization | [facility] | | | and [place] [...] Team Providers + +------+ + | Care Communications Associate Name | Role | Phone | + +------+ + PCP | Unavailable | + +------+ + Encounter Details +--------+ + + + + | Date | Type | Department | Care Team | Description | +--------+ + + + + | 10/21/ | Hospital | [facility] | | | | 1991 | Encounter | [facility] | | | | | | [facility] [address] | | | | | | [place], | | | | | | [place] [address] | | | | | | [phone] | | | +--------+ + + + [...]
--- OUTSIDE RECORDS SUMMARY | ~2020-09-03 | XMS | Encounter Summary ---
Demographics + + + | Address | [address] | | | [place] [address] | + + + | Home Phone [...] Organization | [facility] | | | and [place] [...] Providers + +------+ + | Care Manager Managed Backup Services Name | Role | Phone | + +------+ + PCP | Unavailable | + +------+ + Encounter Details +--------+ + + + + | Date | Type | Department | Care Team | Description | +--------+ + + + + | 05/26/ | Hospital | [facility] | Alexa Bower DO | Infection of lumbar | | 2017 - | Encounter | [facility] [address] | [address] | spine ([facility]); Type [address] | | | [address] | [place] [address] | diabetes mellitus | | 05/27/ | | [place], [place] | [phone] | without | | 2017 | | [address] | | complication, | | | | [phone] | | unspecified long | | | | | | term insulin use | | | | | | status ([facility]); | | | | | | History of drug | | | | | | abuse ([facility]); BMI | | | | | | 40.0-44.9, adult | | | | | | ([facility]); Back pain, | | | | | [...] Service: Hospitalist Author Type: Physician Filed: 07/20/17 1542 Date of Service: 05/27/171842 Status: Signed Straight Tooth Gear Generator Operator: Reynold Garcia MD (Physician) I was informed by nursing that pt decided to leave [place] on 05/27/2017. This has been document ed [...] 05/27/171849 Date of Service: 05/27/171842 Status: Signed Straight Tooth Gear Generator Operator: Mesha Brown RN (Registered Nurse) Pt anxious, [...] Date of Service: 05/27/17 1303 Status: Signed Straight Tooth Gear Generator Operator: Mesha Brown RN (Registered Nurse) Went to [...] Date of Service: 05/27/17 1045 Status: Signed Straight Tooth Gear Generator Operator: Da Goode RN (Registered Nurse) 05/27/17 1042 [...] Oriented Prior functional status independant Power of Paint Crew Supervisor No Anticipated Discharge Plan Post Acute Care Needs None at this time Resources Financial concerns No Transportation issues No ( will transport) Patient/Family concerns No Prescription Plan Yes Name of Pharmacy [facility] in [place] Pharm[facility] phone number [phone] Previous home health equipment No Vascular access device No Ostomy/Drains/Appliances No Anticipated Disposition Facility Type Home Met with patient at bedside. Annabella is a 41 year old female with a history of anxiety/depre sssion, HTN, COPD, DM type 2, and IV drug use. She lives in [place] with her daughter 2 6, and 14 year old twins. Her is currently getting a new house ready for them to mov e into and is active in their lives. Annabella went to [facility] for pelvic pain and spotting but left AMA while waiting for MR I results because she couldn't smoke. The hospital called her and recommended her to go to [facility] based on the MRI results. Patient is independent in all ADL's. Because of the IV drug use, sending her home with an I V line is not recommended is she needs outpatient IV abx. Patient's PCP is: Virginia Reddy NP Patient's insurance:[facility] THERMOFORMING OPERATOR; ilustrum Coverage concerns:no Medication coverage/concerns: no Community resources utilized / needed: TBD Assistance in transportation: not at this time Identification of any specific education / training: TBD Barriers to Discharge / Alternative housing needed: not at this time Anticipated DCP: Home DA GOODE RN Case Management [phone] Andre Lay MD - 05/27/2017 9:46 AM PDT Progress Notes by Andre Alonso MD-R1 at 05/27/17945 Author: Andre Alonso MD-R1 Service: Hospitalist Author Type: Resident-Y1 Filed: 05/27/171900 Date of Service: 05/27/17945 Status: Attested Straight Tooth Gear Generator Operator: Andre Alonso MD-R1 (Resident-Y1) Cosigner: Reynold Garcia [...] hospitalization due to abuse p otential and alf side effects. I anticipate that pt may not be happy during this hospi yuridia stay for this reason. I recommend risk management to see pt proactively. 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 [facility] Service: Hospitalist Progress Note Hospital Day: LOS: 0 days Post-Op Day: * No surgery found * SUBJECTIVE Patient Summary: the patient is a 41-year-old female with significant past medical h istory of type II diabetes, hypertension, gastroesophageal reflux disease, depression, IV dr ug abuse who is a transfer from [facility] for further evaluation. Events Overnight: The [...] 3. DATA Recent Labs Lab 05/27/17 0616 05/27/17315 WBC 7.23 7.45 RBC 4.04 4.25 HCT 36.2 36.4 MCV 89.4 85.8 MCH 29.1 28.9 MCHC 32.6 33.7 RDW 51.2 52.5 PLT 124* 132* MPV 10.4 9.8 DIFFTYPE AUTOMATED AUTOMATED Recent Labs Lab 05/27/1716 05/27/17315 K 4.0 4.0 CL 107 106 CO2 26 26 ANIONGAP 10 10 GLUF 86 83 BUN 8 8 CREATININE 0.7 0.78 BCR 11 10 CA 8.5 7.6* PROT -- 7.2 ALB -- 3.2* GLOB -- 4.1 BILITOT -- 0.4 ALP -- 61 AST -- 33 ALT -- 43 EGFR >60 >60 BMP: Recent Labs Lab 05/27/17 0616 05/27/17315 NA 139 139 K 4.0 4.0 CL 107 106 CO2 26 26 ANIONGAP 10 10 GLUF 86 83 BUN 8 8 CREATININE 0.7 0.78 BCR 11 10 CA 8.5 7.6* EGFR >60 >60 Recent Labs Lab 05/27/17615 MG 2.3 Recent Labs Lab 05/27/1716 05/27/17315 APTT 27 27 INR 1.0 1.0 Recent Labs Lab 05/27/17315 CKTOTAL 43 CKMBINDEX UNABLE TO CALCULATE PROBLEM [...] was transferred from [facility] in [place], [place] for further evaluation of suspicious lumbar [...] Service: (none) Author Type: Registered Nurse Filed: 05/27/1736 Date of Service: 05/27/17633 Status: Signed Straight Tooth Gear Generator Operator: Cathy Garcia RN (Registered Nurse) Contacted [facility]. Will fax over current microbiology GC test along with most current wound culture results. onver ludwin Transaction, Provider Unknown - 05/27/2017 5:15 AM PDT Progress Notes by Remy Trinidad RPH at 05/27/17 0515 Author: Remy Trinidad RPH Service: Pharmacy Author Type: Pharmacist Filed: 05/27/1715 Date of Service: 05/27/17514 Status: Signed Straight Tooth Gear Generator Operator: Remy Trinidad RPH (Pharmacist) Note ccl 125.9ml/min meds reviewed Pharmacy will follow rdc 0515 docume nted in this encounter H&P Notes Tom Rae MD - 05/27/2017 2:41 AM PDT H&P by BERTRAM Boyer at 05/27/17240 Author: BERTRAM Boyer Service: Hospitalist Author Type: Resident-Y1 Filed: 05/27/17621 Date of Service: 05/27/17240 Status: Attested Addendum Straight Tooth Gear Generator Operator: BERTRAM Boyer (Resident-Y1) Related Notes: Original Note by BERTRAM Boyer (Resident-Y1) filed at 05/27/17513 Cosigner: Alexa Bower DO at 06/21/17621 Attestation signed by Alexa Bower DO at 06/21/17621 (Updated) Chief complaint: Back Pain "I had an MRI and they told me there's fluid on my spine" Abdominal Pain Vaginal Bleeding Referral "the infectious disease doctor from [place] told me to come here to be admitted" Reason for admission: Possible paraspinal abscess Patient seen and evaluated independently. Patient denies saddle anesthesia. No suprapubic d istention or tenderness noted. Agree with above assessment, will recommend closely monitoring this patient for respiratory distress and use of narcotics for pain. [facility] Service: Hospitalist Admission History & Physical Date [...] in her spine. She was seen at [facility] in [place] yesterday where she was being evaluated for pelvic pain, vaginal bleeding and low back pain. Patient has an IUD and last month's period was normal. S harleen she started to have spotting 3 weeks ago and has not stopped. The lower back pain she has been experiencing for 1.5 weeks. Denies any trauma. Pain is sharp and constant, predomin antly in her left lower back. Does not radiate, is worse when walking or laying down flat. P ain improved with medications. Workup at [facility] revealed elevated CRP of 7.7, CBC and [...] of the right facet joint of L4-L5. [facility] physician spoke with Dr. Triston alcantara (ID) who recommended radiology guided sampling of fluid by IR as well as blood cultures . He called patient to advise her to come to [facility] for further evaluation. Patient uses IV he roin, last use was yesterday due to the pain. She states she is unsure if the needles she us es are clean. In the [facility] ED, patient found to be afebrile [...] back pain MRI lumbar spine performed at [facility] in [place] showed a subcentimeter rim-enhanci ng collection adjacent [...] drug abuse Currently using IV heroin. Consulted major case detective for assistance with drug rehabilitation. Type 2 [...] follow up urinalysis - G/C Aptima from [facility] pending, hospitalist to request results DVT prophylaxis: [...] 06/06/17921 Date of Service: 05/27/17617 Status: Addendum Straight Tooth Gear Generator Operator: Kate Rangel MD (Physician) Related Notes: Original Note by Kate Rangel MD (Physician) filed at 06/06/17920 [facility] Service: Infectious Disease Initial Consult Note Date of Admission: 05/26/2017 Reason for Consultation: Concern for spine infection in a patient with history of IV drug use Requesting Physician: Dr. Alexa Bower, Hospitalist History Obtained From: patient, chart review CHIEF COMPLAINT: Back pain; prior evaluation at [facility] in [place] with MRI concer ns for spine infection HISTORY OF PRESENT ILLNESS The patient is a 41 y.o. 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 She denies history of [...] On 05/25, the patient was seen at [facility] in [place] for low back pain which she linda cribed as severe and pelvic pain. She has been having vaginal spotting; she has an IUD and described having normal period the prior month. The vaginal spotting reportedly has stopped but she is interested in seeing a BIOSECURITY OFFICER. The low back pain is persistent, described [...] C) (05/27 507) BP: (107-123)/(59-86) 115/73 mmHg (05/27 507) Heart Rate: [79-91] 88 (05/27 507) Resp: [16-18] 17 (05/27 507) SpO2: [93 [...] had been (informally) reviewed by Neurosurgery and [facility]iology does not think there is enough [...] to her health and consider behavioral hea lt counseling/drug use cessation -patient expresses interest in HIV/hepatitis screening; these have been ordered Abnormal vaginal bleeding -patient has an IUD and reports normal menstruation in the past month. Suggest OB-BIOSECURITY OFFICER refe rral as an outpatient. Case had been discussed with ER physician at [facility] and with Dr. Garcia, her hospitalis t [...] 05/27/17313 Date of Service: 05/27/17313 Status: Signed Straight Tooth Gear Generator Operator: Kenya Zavala RN (Registered Nurse) Dr Bower at pt BS Kenya Zavala RN 05/27/17313 Ed Nation MD - 05/27/2017 12:26 AM PDT ED Provider Notes by Ed Toney DO at 05/27/17 0026 Author: Ed Toney DO Service: Emergency Department Author Type: Physician Filed: 05/27/17 0443 Date of Service: 05/27/17 0026 Status: Signed Straight Tooth Gear Generator Operator: Ed Toney DO (Physician) [facility] Department of Emergency Medicine 12:26 AM 05/26/2017 [...] Bleeding Referral "the infectious disease doctor from [place] told me to come here to be admitted" Patient presents to the ED with complaints of back pain. Onset of symptoms was today, with a constant course since that time. Symptoms are described to be of moderate severity. Patien t describes quality and location of symptoms as: worsening sharp lower back pain. Patient al so complains of vaginal bleeding. Patient was seen in the [place] ED 3 days ago for vagina l bleeding, where she was found to have a "pocket of fluid in my spine." Patient became upse t, then left the facility AMA. She was then called today with her results, and advised to co me to [facility] ED for further evaluation/admission. The patient has [...] and was advised to come to the [facility] ED for admission and treatment of possible abscess of spine. Dr. Rangel is aware of patient's case and is requesting three sets of blood cul tures and admission. Will order labs, and reevaluate. Will also obtain MRI report. 2:25 AM Reviewed patient's records which were sent from [facility] in [place]. 2:34 AM Discussed patient's case with Dr. Bower, hospitalist, who accepts patient for admis ludwin. Medications sodium chloride 0.9 % with KCl 40 mEq infusion (110 mL/hr Intravenous New Bag 05/27/17 030) Patient Vitals for the past 24 hrs: BP Temp Temp src Pulse Resp SpO2 Weight 05/27/17415 107/59 mmHg - - 82 18 95 [...] reviewed (Using the electronic record system of [facility], I car efully reviewed the records with regard to the past medical/surgical history, previous medic ations, and allergies). Nursing notes reviewed for chief complaint, medications, clinical presentation and vital si gns Laboratory Evaluation Results Procedure Component Value Ref Range Date/Time Drugs of Abuse Screen, UR Hospital and ED Only [[id number]] Order Status: Sent Specimen Information: Urine, Clean Catch Cardiac Panel [[id number]] (Abnormal) Collected: 05/27/17315 Order Status: Completed Updated: [...] Index UNABLE TO CALCULATE Sedimentation Rate (ESR) [[id number]] (Abnormal) Collected: 06/30/17 0316 Order Status: Completed Specimen Information: Blood Updated: 05/27/17357 ESR 23 (H) 0 - 20 mm/Hr Lactic acid [[id number]] Collected: 05/27/17316 Order Status: Completed Specimen Information: Blood Updated: 05/27/17348 LACTIC ACID 0.4 0.4 - 2.0 mmol/L C-Reactive Protein [[id number]] (Abnormal) Collected: 05/27/17315 Order Status: Completed Specimen Information: Blood Updated: 05/27/17347 CRP 1.7 (H) <0.5 mg/dL Blood culture, set 2 [[id number]] Collected: 05/27/17317 Order Status: Sent Specimen Information: Blood from Blood Updated: 05/27/17322 Blood Culture Set 1 [[id number]] Collected: 05/27/17314 Order Status: Sent Specimen Information: Blood from Blood Updated: 05/27/17320 Urinalysis (reflex to microscopic/reflex to culture) [[id number]] (Abnormal) Collected: 05/27/17199 Order Status: Completed Specimen Information: Urine, Clean Catch Updated: 05/27/17 02 23 COLOR UA RED CLARITY CLEAR Specific [place], UA 1.005 1.002 - 1.030 LEUKOCYTE ESTERASE [...] Type 2 diabetes mellitus without complication, unspecified alf insulin use status (H CC) History of drug abuse IVDA herion by report BMI 40.0-44.9, adult (HCC) Disposition: [...] recognition system. The possibility of "sound alike" directional survey drafter errors, addition and/or deletions may occur. If there is any question p lease contact the author of the document. Procedures Additional Documentation Procedures Attending Provider Note: I, Ed Toney DO personally performed the services describe d in this documentation, as scribed by Evelyn Fallon in my presence, and it is both accura te and complete. Chart Reviewed and Completed: 05/27/2017 4:43 AM Scribe: Arti Wen, scribing for and in the presence of Ed Toney DO. Signed by: Arti Hope 05/27/2017 3:02 AM Ed Toney DO 05/27/17 0443 onversion Transac tion, Provider Unknown - 05/27/2017 12:04 AM PDTFormatting of this note might be different f rom the original. ED Notes by Kenya Zavala RN at 05/27/17 0004 Author: Kenya Zavala RN Service: (none) Author Type: Registered Nurse Filed: 05/27/17 0007 Date of Service: 05/27/17 0004 Status: Signed Straight Tooth Gear Generator Operator: Kenya Zavala RN (Registered Nurse) "3 Days [...] 05/27/17805 Date of Service: 05/27/17805 Status: Signed Straight Tooth Gear Generator Operator: Mesha Brown RN (Registered Nurse) Problem: Pain [...] NEGATIVE Testing | | | performed at [facility];[address] [place] [address];[place] [address] | | + + + + +---------+ [...] | | | Fingerstick | performed at [facility];[address] | | LAB | | | | [address];[place] | | | | | | [address] | | | | + + + [...] | | | Fingerstick | performed at [facility];[address] | | LAB | | | | [address];[place] | | | | | | [address] | | | | + + + [...] + + + + + + | Clarity, | CLEAR | | EXTERNAL | | | Urine | | | LAB | | + + + + + + | Specific | 1.004 | 1.002 - 1.030 | EXTERNAL | | | [place], | | | LAB | | | [...] | | l squamous | performed at [facility], [address] | | LAB | | | epithelia, | [address], | | | | | UA | [place] [address] | | | | + + + [...] | | | Patient | performed at [facility];[address] | | LAB | | | [address];[place], [place] | | | | | | [address] | | | | + + + [...] | | | | | performed at [facility];[address] | | | | | | [address];[place], [place] | | | | | | [address] | | | | + + + [...] + + + + + + | Non- | 4.04 | 3.70 - 5.10 | EXTERNAL | | | Red Blood | | M/uL | LAB | | | Cells | | | | | | Counted | | | [...] | | | Basophils | performed at [facility], [address] | K/uL | LAB | | | | [address], | | | | | | [place] [address] | | | | + + + [...] EXTERNAL | | | | performed at [facility], [address] | | LAB | | | | [address], | | | | | | [place] [address] | | | | + + + [...] EXTERNAL | | | | performed at L, [address] | | LAB | | | | [address], | | | | | | [place] [address] | | | | + + + [...] + + | Hemoglobin | 5.7Comment: The Croatian | 4.0 - 6.0 % | EXTERNAL [...] | | | | | performed at [facility], [address] | | | | | | Teresa [address], | | | | | | [place] [address] | | | | + + + [...] | | | | | | at [facility], [address] | | | | | | [facility], | | | | | | [place] [address] | | | | + + + [...] | | | Fingerstick | performed at [facility];[address] | | LAB | | | | [address];[place], [place] | | | | | | [address] | | | | + + + [...] | | | | | performed at [facility];[address] | | | | | | [facility];[place], [place] | | | | | | [address] | | | | + + + [...] EXTERNAL | | | | performed at [facility];[address] | mmol/L | LAB | | | | [address];[place] | | | | | | [address] | | | | + + + [...] + + + + + + | Non- | 4.25 | 3.70 - 5.10 | EXTERNAL | | | Red Blood | | M/uL | LAB | | | Cells | | | | | | Counted | | | [...] at | | | | | | [facility];[address] [place] [address] | | | | | | Blvd;[place] [address] | | | | + + + [...] EXTERNAL | | | | performed at [facility] | | LAB | | | | [address];[place], [place] | | | | | | [address] | | | | + + + [...] EXTERNAL | | | | performed at [facility];[address] | | LAB | | | | Dawn [facility];[place], [place] | | | | | | [address] | | | | + + + [...] | | | QUALITATIVE | performed at [facility] | | LAB | | | | Nerey[address] [facility];[place], [place] | | | | | | [address] | | | | + + + [...] + + + + + + | Clarity, | CLEAR | | EXTERNAL | | | Urine | | | LAB | | + + + + + + | Specific | 1.005 | 1.002 - 1.030 | EXTERNAL | | | [place], | | | LAB | | | [...] | | | Cells | performed at [facility];[address] | | LAB | | | | [address];[place], [place] | | | | | | [address] | | | | + + + [...] Type 2 diabetes mellitus without complication, unspecified equipment operator intermodal yard insulin use | | status | + [...]
--- OUTSIDE RECORDS SUMMARY | ~2020-09-03 | XMS | Encounter Summary ---
Demographics + + + | Address | [address] | | | [place] [address] | + + + | Home Phone [...] Organization | [facility] | | | and [place] | [...] Team Providers + +------+ + | Care History Instructor Name | Role | Phone | + +------+ + PCP | Unavailable | + +------+ + Encounter Details +--------+ + + + + | Date | Type | Department | Care Team | Description | +--------+ + + + + | 10/25/ | Hospital | [facility] | | | | 1991 | Encounter | [facility] | | | | | | CENTER [address] | | | | | | [place] | | | | | | [address] | | | | | | [phone] | | | +--------+ + + + [...]
--- OUTSIDE RECORDS SUMMARY | ~2020-09-03 | XMS | Encounter Summary ---
Demographics + + + | Address | [address] | | | [place] [address] | + + + | Home Phone [...] + | Organization | [facility] | [...] Providers + +------+ + | Care Wire Coating Machine Operator Name | Role | Phone | + +------+ + PCP | Unavailable | + +------+ + Encounter Details +--------+ + + + + | Date | Type | Department | Care Team | Description | +--------+ + + + + | 06/22/ | Hospital | [facility] | Yovanny Suazo, | | | 1991 | Encounter | MED [facility] | MD [address] | | | | | [facility] [address] | [address] [facility] | | | | | [address] [place], | [facility] [address] | | | | | [place] [address] | [phone] | | | | | [phone] | | | +--------+ + + + [...]
--- OUTSIDE RECORDS SUMMARY | ~2020-09-03 | XMS | Encounter Summary ---
Demographics + + + | Address | [address] | | | [place] [address] | + + + | Home Phone [...] Author | [facility] | + + + | Organization | [facility] [employer] [facility] | + + + | Address | Unknown | + + + | Phone | Unavailable | + + + Support + + +---------+ + | Name | Relationship | Address | Phone | + + +---------+ + | Ruby Au | ECON | Unknown | | + + +---------+ + Care Team Providers + +------+ + | Care Clam Grower Name | Role | Phone | [...] [address] | | | | | [address] [facility] | [place], [place] | | | | | [facility], | [address] | | | | | [facility] | [phone] | | | | | floor [place], [place] | | | | | | [address] | | | | | | [phone] | | | +--------+ + + + [...]
--- OUTSIDE RECORDS SUMMARY | ~2020-09-03 | XMS | Encounter Summary ---
Demographics + + + | Address | [address] | | | [place] [address] | + + + | Home Phone [...] | Organization | [facility] | | | and [place] [...] Team Providers + +------+ + | Care All Round Logger Name | Role | Phone | + +------+ + PCP | Unavailable | + +------+ + Encounter Details +--------+ + + + + | Date | Type | Department | Care Team | Description | +--------+ + + + + | 07/30/ | Hospital | [facility] | | | | 2008 - | Encounter | MED CTR MED ONC | | | | | | [address] [place] | | | | 09/05/ | | [place] [address] | | | | 2008 | | [phone] | | | +--------+ + + + [...]
--- OUTSIDE RECORDS SUMMARY | ~2020-09-03 | XMS | Encounter Summary ---
Demographics + + + | Address | [address] | | | [place] [address] | + + + | Home Phone [...] + + + | Author | [facility] [employer] [facility] | + + + | Organization | [facility] [employer] [facility] | + + + | Address | Unknown | + + + | Phone | Unavailable | + + + Support + + +---------+ + | Name | Relationship | Address | Phone | + + +---------+ + | Ruby Au | ECON | Unknown | | + + +---------+ + Care Team Providers + +------+ + | Care Tube Making Machine Operator Name | Role | [...] | | | | | | Mailcode: [id number] | | | | | | Timoteo Mistry | | | | | | [address] [place], [place] | | | | | | [address] | | | | | | [phone] | | | +--------+ + + + [...]
--- OUTSIDE RECORDS SUMMARY | ~2020-09-03 | XMS | Encounter Summary ---
Demographics + + + | Address | [address] | | | [place] [address] | + + + | Home Phone [...] | Organization | [facility] | | | and [...] Team Providers + +------+ + | Care Complex Human Resources Manager Name | Role | Phone | + +------+ + PCP | Unavailable | + +------+ + Encounter Details +--------+ + + + + | Date | Type | Department | Care Team | Description | +--------+ + + + + | 06/20/ | Hospital | [facility] | Yovanny Suazo, | | | 1991 | Encounter | MED CTR WOMENS | MD [address] | | | | | HEALTH SVCS [address] | [address] [facility] | | | | | [place], | [place] [address] | | | | | [place] [address] | [phone] | | | | | [phone] | | | +--------+ + + + [...]
--- OUTSIDE RECORDS SUMMARY | ~2020-09-03 | XMS | Encounter Summary ---
Demographics + + + | Address | [address] | | | [place] [address] | + + + | Home Phone [...] Organization | [facility] | | | and [...] Providers + +------+ + | Care Textile Colorist Formulator Name | Role | Phone | + +------+ + PCP | Unavailable | + +------+ + Encounter Details +--------+ + + + + | Date | Type | Department | Care Team | Description | +--------+ + + + + | 08/03/ | Hospital | [facility] | | | | 1990 | Encounter | MED CTR EMERGENCY | | | | | | CENTER [address] | | | | | | [place] | | | | | | [address] | | | | | | [phone] | | | +--------+ + + + [...]
--- OUTSIDE RECORDS SUMMARY | ~2020-09-03 | XMS | Encounter Summary ---
Demographics + + + | Address | [address] | | | [place] [address] | + + + | Home Phone [...] + + | Author | [facility] [employer] [facility] | + + + | Organization | [facility] [employer] [facility] [...] Team Providers + +------+ + | Care Physically Impaired Teacher Name | Role | Phone | [...] Other | | 2005 | | [address] [facility] | PA-C [address] | | | | | Rd Mailcode:OP14B | [place], [place] | | | | | [facility] | [id number] | | | | | [place], [place] | | | | | | [address] | | | | | | [phone] | | | +--------+ + + + [...] it all to you. Her # is [phone]. Barb documented in this e ncounter Plan of Treatment Not on filedocumented as of this encounter Visit Diagnoses Not on filedocumented in this encounter"
--- OUTSIDE RECORDS SUMMARY | ~2020-09-03 | XMS | Encounter Summary ---
Demographics + + + | Address | [address] | | | [place] [address] | + + + | Home Phone [...] + | Author | [facility] | + + + | Organization | [facility] [employer] [facility] | + [...] Providers + +------+ + | Care Machine Captain Name | Role | Phone | + [...] | | | | | | floor [place], [place] | | | | | | [address] | | | | | | [phone] | | | +--------+ + + + [...]
--- OUTSIDE RECORDS SUMMARY | ~2020-09-03 | XMS | Encounter Summary ---
Demographics + + + | Address | [address] | | | [place] [address] | + + + | Home Phone [...] + + | Author | [facility] [employer] [facility] | + + + | Organization | [facility] [employer] [facility] | + + + | Address | Unknown | + + + | Phone | Unavailable | + + + Support + + +---------+ + | Name | Relationship | Address | Phone | + + +---------+ + | Ruby Au | ECON | Unknown | | + + +---------+ + Care Team Providers + +------+ + | Care Strength And Conditioning Coach Name | Role | Phone | [...] | | | REFERRAL TO | | [place], [place] | | | | | NEUROINTERVE | | [address] | | | | | NTIONAL | | Phone: | | | | | RADIOLOGY | | [phone] | | | | | PRACTICE | | Fax: | | | | | | | [phone] | +--------+--------+ + + + + Reason [...] Dx) | | | | Mailcode:OP14B | [place], [place] | | | | | Outpatient Clinic | [address] | | | | | Building [place], | [phone] | | | | | [place] [address] | | | | | | [phone] | | | +--------+---------+ + + + [...] resident s note. CASIMIRO PAYTON MD NEUROSURGERY [address] [place] [address] [place] [address] hPascual hanley Bri - 12:00 PM PDT [...] spots" and "tunnel vision." Last saw an call center director in [facility] 2 months ago. Reportedl y, this showed that her OS vision was worse - no reports available to me at this time. Was a lso admitted to the [facility] for CAPONE about a month ago. Reportedly [...] Patient was also given a prescription for [place] for CAPONE until she establishs care with [...]
--- OUTSIDE RECORDS SUMMARY | ~2020-09-03 | XMS | Encounter Summary ---
Demographics + + + | Address | [address] | | | [place] [address] | + + + | Home Phone [...] + + | Author | [facility] [employer] [facility] | + + + | Organization | [facility] [employer] [facility] | + [...] Team Providers + +------+ + | Care Tent Worker Name | Role | Phone | [...] | 08/24/ | Emergency | [facility] Emergency | Tylor Mcclellan, | | | 2010 | | Department [address] | [address] | | | | | [address] | MD [address] | | | | | [facility] | Dilshad Sandra Maloney | | | | | [place], [place] | [place], [place] | | | | | [address] | [address] | | | | | [phone] | [phone] | | | | | | | [...] he original. OPHTHALMOLOGY INPATIENT CONSULT NOTE Author: ERCI KLEIN MD Reason for Consult: Evaluate for papilledema HPI: 37 y.o. F with h/o pseudotumor cerebri (dx 2005) s/p left optic nerve sheath fenestrat ion (by Dr. Hughes at [facility] in 2006) and s/p lumboperitoneal [...] worth. She has not seen a n java lead architect in years - last dilated exam was several years ago. Per chart review, pt used to be followed by Dr. Currie at [facility] neuro-op; last seen in 02/2007 w hen she was on Diamox 500mg BID. 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 Prior to her ONSF OS, she was on Diamox 1000mg BID. POH: Pseudotumor cerebri dx [address] Currie at [facility] (last seen 02/2007) S/p ONSF [...] sheath fenestra tion (by Dr. Hughes at [facility] in 2006) and s/p lumboperitoneal shunt failure presenting to ED with severe headache and transient visual obscurations OS. 1. Pseudotumor Cerebri s/p left optic nerve fenestration in 2006, lumboperitoneal shunt [facility] appears to have now failed. 2. 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 -Will start Diamox 1 gram po BID, can titrate dose up in the future if symptoms not relieve d -Will plan for outpatient disc photos, visual field testing -Defer to neurosurgery regarding plans for shunt revision -Follow-up with Dr. Klein at [facility] ([facility]) on TuesdayAugust 30 at 8:30am ([phone]). Eric Klein MD Resident Physician [facility] 08/24/2011 Patient seen and evaluated with attending physician, Dr. Funmilayo Osorio, who agrees with the [facility] findings and plan. Faculty Staffing Note: Personally repeated jade elements of history and physical and agree with documentation by e resident on this progress note. Assisted Resident and conferred with patient in regards to diagnosis and management plan. Funmilayo Osorio MD Airport Operations Duty Manager [facility] ang, Rach Waters MD - 08/24/2011 11:23 [...] clinic in next week. Call clinic for [phone] 4:56 PM Ophtho: Diamox 1000mg BID, f/u [...] such she was told to come to "[facility] ED for eval by my neurosurgeon." [...] exam findings to suggest menengitis or other TILE MASON infection. No history of immune compromise.CVT was [...] been in in hospital with [place] in [place]. Pt reports her local hospital in [facility] is not equipped to handle current. complaint Pt is aox3, neg stroke scale, strong machinist general Vidhi Tong RN - 08/24/2011 9:30 AM PDTPt c/o lumbar shunt malfunction. Has had in place for 4 years w/o problem. Tuesday fever to 102. Now low back pain radiating around to front. Drove from [facility] to see Neuro as recommended by [...] note. SBAR given to Dr. Lewis @ [facility] pending final neurosurgical recs for displaced lumbo-mina [...]
--- OUTSIDE RECORDS SUMMARY | ~2020-09-03 | XMS | Encounter Summary ---
Demographics + + + | Address | [address] | | | [place] [address] | + + + | Home Phone [...] Organization | [facility] | | | and [place] [...] Providers + +------+ + | Care Director Rehabilitation Program Name | Role | Phone | + +------+ + PCP | Unavailable | + +------+ + Encounter Details +--------+ + + + + | Date | Type | Department | Care Team | Description | +--------+ + + + + | 04/24/ | Hospital | [facility] | | | | 2005 | Encounter | MED CTR EMERGENCY | | | | | | CENTER [address] | | | | | | [place] | | | | | | [address] | | | | | | [phone] | | | +--------+ + + + [...]
--- OUTSIDE RECORDS SUMMARY | ~2020-09-03 | XMS | Encounter Summary ---
Demographics + + + | Address | [address] | | | [place] [address] | + + + | Home Phone [...] | Author | [facility] [employer] [facility] | + + + | Organization | [facility] [employer] [facility] | + + [...] Providers + +------+ + | Care Chief Librarian Music Department Name | Role | Phone | [...] [phone] | | | | | kiran [facility] | [facility] | | | | | Health and Healing, | Rd [place], [place] | | | | | | [address] | | | | | floor [place], [place] | [phone] | | | | | [address] | | | | | | [phone] | | | +--------+ + + + [...]
--- OUTSIDE RECORDS SUMMARY | ~2020-09-03 | XMS | Encounter Summary ---
Demographics + + + | Address | [address] | | | [place] [address] | + + + | Home Phone [...] | [facility] | | | and [place] [...] Providers + +------+ + | Care Jig Worker Name | Role | Phone | + +------+ + PCP | Unavailable | + +------+ + Encounter Details +--------+ + + + + | Date | Type | Department | Care Team | Description | +--------+ + + + + | 10/18/ | Hospital | [facility] | | | | 1991 | Encounter | MED CTR WOMENS | | | | | | HEALTH SVCS [address] | | | | | | [place], | | | | | | [place] [address] | | | | | | [phone] | | | +--------+ + + + [...]
--- OUTSIDE RECORDS SUMMARY | ~2020-09-03 | XMS | Encounter Summary ---
Demographics + + + | Address | [address] | | | [place] [address] | + + + | Home Phone [...] | Replaced By [facility] [employer] [facility] | + + + | Organization | Replaced By [facility] [employer] [facility] [...] Providers + +------+ + | Care Company Controller Name | Role | Phone | + [...] | | | [facility] for | [place], [place] | | | | | Health and Healing, | [address] | | | | | [facility] | [phone] | | | | | floor [place], [place] | | | | | | [address] | | | | | | [phone] | | | +--------+ + + + [...] reached at [facility] at [phone]. docum ented in this encounter Plan of Treatment Not on filedocumented as of this encounter Visit Diagnoses Not on filedocumented in this encounter"
--- OUTSIDE RECORDS SUMMARY | ~2020-09-03 | XMS | Encounter Summary ---
Demographics + + + | Address | [address] | | | [place] [address] | + + + | Home Phone [...] + | Author | [facility] [employer] [facility] | + + + | Organization | [facility] [employer] [facility] | + [...] Providers + +------+ + | Care Yarn Texturing Machine Operator Name | Role | Phone [...] + + | 06/24/ | Emergency | [facility] Emergency | | | | 2010 | | Department [address] | | | | | | [address] | | | | | | [facility] | | | | | | [place], [place] | | | | | | [address] | | | | | | [phone] | | | +--------+ + + + [...]
--- OUTSIDE RECORDS SUMMARY | ~2020-09-03 | XMS | Encounter Summary ---
Demographics + + + | Address | [address] | | | [place] [address] | + + + | Home Phone [...] | Organization | [facility] | | | and [place] [...] Providers + +------+ + | Care Waste Machine Operator Name | Role | Phone | + +------+ + PCP | Unavailable | + +------+ + Encounter Details +--------+ + + + + | Date | Type | Department | Care Team | Description | +--------+ + + + + | 07/19/ | Hospital | [facility] | Vern Rooney, | | | 1990 - | Encounter | MED CTR MED ONC | MD [address] | | | | | [address] [place] | [place] | | | 07/21/ | | [place] [address] | [address] | | | 1990 | | [phone] | | | +--------+ + + + [...]
--- OUTSIDE RECORDS SUMMARY | ~2020-09-03 | XMS | Encounter Summary ---
Demographics + + + | Address | [address] | | | [place] [address] | + + + | Home Phone [...] + | Author | [facility] [employer] [facility] | + + + | Organization | [facility] [employer] [facility] [...] Team Providers + +------+ + | Care Campground Hand Name | Role | Phone | [...] | | | | | | | [place] | | | | | | | [id number] | | | | | | | [facility] | | | | | | | [place], | | | | | | | [place] [address] | | | | | | | Phone: | | | | | | | [phone] | +--------+--------+ + + + + Encounter Details +--------+ + + + + | Date | Type | Department | Care Team | Description | +--------+ + + + + | 08/01/ | Hospital | [facility] [address] | Sam Pedroza MD | | | 2007 - | Encounter | [place] | [address] | | | | | [id number] [facility] | [place], [place] | | | 08/02/ | | HOSPITAL [place], | [address] | | | 2007 | | [place] [address] | [phone] | | | | | [phone] | | | +--------+ + + + [...] in 2 weeks, please call for appointment: [phone] Condition On Discharge: Vital Signs at discharge [...] in 2 weeks, please call for appointment: [phone] Condition On Discharge: Vital Signs at discharge [...] at this time. Yessenia Nowak, OTR/ L [address] Tomasz Caldera Md - 02/2008 11:08 AM PDTINPATIENT BRIEF OPERATIVE NOTE Date: 08/01/2008 Author: TOMASZ RICE MD Attending Physician: Kaisa Assistants: Inderjit Rice At (time), prior to [...] 12:16 PM PDTAssociated Order(s): ANESTHESIA/SEDATION Other, [facility] - 08/02/2008 12:16 PM PDTAssociated Order(s): ANESTHESIA/SEDATION Other, Faculty - 12:16 PM PDT Other, Faculty - 08/02/2008 12:16 PM PDTAssociated Order(s): ANESTHES IA/SEDATION Tomasz Rice - 08/01/2008 12:00 AM PDTAssociated Order(s): OPERATION RECOR D [id number] [facility] [id number] Date: 08/01/2008 Attending Surgeon: Sam Pedroza M.D. Research Phlebotomist(s): Pooja Al M.D. Preoperative Diagnosis(es): Pseudotumor cerebri. [...] with tonsils and then gently incised. A Little Silver 4 was then easily fed through it, [...] M.D. Sam Pedroza M.D. SYBIL / LANETTE [id number] / [id number] / [id number] / am Pedroza 02/2008 12:00 AM PDTAssociated Order(s): TEACHING PHYSICIAN [id number] PAT Waters [id number] Date: 08/01/2008 Attending Surgeon: Sam Pedroza M.D. Research Phlebotomist(s): Pooja Al M.D. Preoperative Diagnosis(es): Pseudotumor cerebri. [...] Palomo Jansen. Sam Pedroza M.D. AD / [id number] / [id number] / [id number] / [id number] ther, Faculty - 07/24/2008 9:44 AM PDT [...] + + | Performing | Address | City/State/[facility] | Phone Number | | Organization | | | | + +---------+ + + | [facility] DEPARTMENT OF | | | | | RADIOLOGY | | | | + +---------+ + + OPERATION RECORD (08/01/2008 12:00 AM PDT) + + + | Narrative | Performed At | + + + | [id number] | | | [id number] | | | [place] [id number] Date: | | | 08/01/2008 Attending Surgeon: | | | Sam Pedroza M.D. Research Phlebotomist(s): | | | Tomasz Rice M.D. | [...] | tonsils and then gently incised. A Little Silver 4 was then easily fed | | [...] | Pooja Pedroza M.D. KG / LANETTE [id number] / | | | [id number] / [id number] / | | + + + + + | Procedure Note | + + | Krystal Rushing, Tomasz - 08/01/2008 12:00 AM PDT [id number] | | [id number] PAT GRIFFIN S | | [id number] Date: 08/01/2008 Attending Surgeon: Sam | | Pooja Pedroza Research Phlebotomist(s): Tomasz Rice M.D. | | Palomo Jansen [...] tonsils and | | thengently incised. A Little Silver 4 was then easily fed through it, [...] Sam Pedroza M.D. KG / | | [id number] / [id number] / [id number] / T: 08/02/2008 | |dripping from the [...] tonsils and then | |gently incised. A Little Silver 4 was then easily fed through it, [...] | | | |KG / HS | |[id number] / [id number] / [id number] / | | | | | | | | | | | | | | | | | | | | | + + TEACHING PHYSICIAN (08/01/2008 12:00 AM PDT) + + + | Narrative | Performed At | + + + | [id number] | | | [id number] | | | [place] [id number] | | | Date: 08/01/2008 Attending Surgeon: | | | Sam Pedroza M.D. Research Phlebotomist(s): | | | Tomasz Rice M.D. | [...] Sam | | Leif Pedroza M.D. / [id number] / [id number] / 86429 / 39029 D: | | | 08/01/2008 | | + + + + + | Procedure Note | + + | Sam Pedroza MD - 08/01/2008 12:00 AM PDT [id number] | | [id number] [facility] Waters | | [id number] Date: 08/01/2008ttending Surgeon: Sam | | Pooja Pedroza Research Phlebotomist(s): Tomasz Rice M.D. | | Palomo Jansen [...] | Bisi. Sam Pedroza M.D. AD / [id number] / [id number] / [id number] / [id number]: | | 08/01/2008T: 08/01/2008 | | | [...] | | | |AD / HS | |[id number] / [id number] / 37024 / [id number] | | | | | | | [...]
--- OUTSIDE RECORDS SUMMARY | ~2020-09-03 | XMS | Encounter Summary ---
Demographics + + + | Address | [address] | | | [place] [address] | + + + | Home Phone [...] | Author | [facility] [employer] [facility] | + + + | Organization | [facility] [employer] [facility] | + + [...] Providers + +------+ + | Care Health Physics Technician Name | Role | Phone [...] | | | | | Physician's | [place], [place] | | | | | [place], 2nd floor | [address] | | | | | [place], [place] | [phone] | | | | | [address] | | | | | | [phone] | | | +--------+ + + + [...]
--- OUTSIDE RECORDS SUMMARY | ~2020-09-03 | XMS | Encounter Summary ---
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 | | depend | | | ence, | | | unspec | | | ified, | | | | | | uncomp | | | licate | | | d | | | Type 2 | | | | | | diabet | | | es | | | mellit | | | us | | | withou | | | t | | | compli | | | cation | | | s | | | Poison | | | ing by | | | other | | | | | | synthe | | | tic | | | narcot | | | ics, | | | accide | | | ntal | | | (unint | | | enti | | | | | | Chroni | | | c | | | obstru | | | ctive | | | pulmon | | | car | | | diseas | | | e, | | | unspec | | | ified | | | | | | Allerg | | | y | | | status | | | to | | | other | | | antibi | | | otic | | | agents | | | | | | status | | | | | | Allerg | | | y | | | status | | | to | | | narcot | | | ic | | | agent | | | status | | | | | | Allerg | | | y | | | status | | | to | | | analge | | | sic | | | agent | | | status | | | | | | Allerg | | | y | | | status | | | to | | | other | | | drugs, | | | | | | medica | | | ments | | | and | | | biolog | | | ical | | | sub | | | Other | | | long | | | term | | | (curre | | | nt) | | | drug | | | therap | | | y Nick | | | 2, | | | 2020 | | | [facility] | | [place] | | | [place] | | | Emerge | | | ncy | | | | | | Poison | | | ing by | | | other | | | | | | opioid | | | s, | | | accide | | | ntal | | | (unint | | | ention | | | al), | | | initi | | | | | | Other | | | long | | | term | | | (curre | | | nt) | | | drug | | | therap | | | y | | | Long | | | term | | | (curre | | | nt) | | | use of | | | oral | | | hypogl | | | ycemic | | | drugs | | | | | | Chroni | | | c | | | obstru | | | ctive | | | pulmon | | | car | | | diseas | | | e, | | | unspec | | | ified | | | | | | Essent | | | ial | | | (prima | | | ry) | | | hypert | | | ension | | | | | | Nicoti | | | ne | | | depend | | | ence, | | | unspec | | | ified, | | | | | | uncomp | | | licate | | | d | | | Allerg | | | y | | | status | | | to | | | narcot | | | ic | | | agent | | | status | | | | | | Type 2 | | | | | | diabet | | | es | | | mellit | | | us | | | withou | | | t | | | compli | | | cation | | | s | | | Allerg | | | y | | | status | | | to | | | other | | | antibi | | | otic | | | agents | | | | | | status | | | | | | Allerg | | | y | | | status | | | to | | | other | | | drugs, | | | | | | medica | | | ments | | | and | | | biolog | | | ical | | | sub | | | Nick 2, | | | 2020 | | | [facility] | [place] | | | [place] | | | Emerge | | | ncy | | | | | | Essent | | | ial | | | (prima | | | ry) | | | hypert | | | ension | | | | | | Poison | | | ing by | | | | | | unspec | | | ified | | | narcot | | | ics, | | | accide | | | ntal | | | (unint | | | ention | | | al | | | Chroni | | | c | | | obstru | | | ctive | | | pulmon | | | car | | | diseas | | | e, | | | unspec | | | ified | | | | | | Proced | | | ure | | | and | | | treatm | | | ent | | | not | | | andrew | | | d out | | | due to | | | | | | patien | | | t | | | leavin | | | | | | Nicoti | | | ne | | | depend | | | ence, | | | unspec | | | ified, | | | | | | uncomp | | | licate | | | d | | | Type 2 | | | | | | diabet | | | es | | | mellit | | | us | | | withou | | | t | | | compli | | | cation | | | s | | | Restle | | | ssness | | | and | | | agitat | | | ion | | | | | | Allerg | | | y | | | status | | | to | | | other | | | antibi | | | otic | | | agents | | | | | | status | | | | | | Other | | | long | | | term | | | (curre | | | nt) | | | drug | | | therap | | | y | | | Allerg | | | y | | | status | | | to | | | narcot | | | ic | | | agent | | | status | | | Luis Fernando | | | 6, | | | 2020 | | | [facility] | [place] | | [place] | | | Emerge | | | ncy | | | Type | | | 2 | | | diabet | | | es | | | mellit | | | us | | | withou | | | t | | | compli | | | cation | | | s | | | Other | | | long | | | term | | | (curre | | | nt) | | | drug | | | therap | | | y | | | Chroni | | | c | | | obstru | | | ctive | | | pulmon | | | car | | | diseas | | | e, | | | unspec | | | ified | | | | | | Allerg | | | y | | | status | | | to | | | other | | | drugs, | | | | | | medica | | | ments | | | and | | | biolog | | | ical | | | sub | | | | | | Allerg | | | y | | | status | | | to | | | other | | | antibi | | | otic | | | agents | | | | | | status | | | | | | Nicoti | | | ne | | | depend | | | ence, | | | unspec | | | ified, | | | | | | uncomp | | | licate | | | d | | | Opioid | | | | | | abuse, | | | | | | uncomp | | | licate | | | d | | | Allerg | | | y | | | status | | | to | | | narcot | | | ic | | | agent | | | status | | | | | | Essent | | | ial | | | (prima | | | ry) | | | hypert | | | ension | | | | | | Syncop | | | e and | | | collap | | | se | | | May 8, | | | 2020 | | | [facility] | [place] | | | [place] | | | Emerge | | | ncy | | | | | | Nicoti | | | ne | | | depend | | | ence, | | | unspec | | | ified, | | | | | | uncomp | | | licate | | | d | | | Gastro | | | -esoph | | | ageal | | | reflux | | | | | | diseas | | | e | | | withou | | | t | | | esopha | | | gitis | | | | | | Allerg | | | y | | | status | | | to | | | other | | | antibi | | | otic | | | agents | | | | | | status | | | | | | Essent | | | ial | | | (prima | | | ry) | | | hypert | | | ension | | | | | | Consti | | | pation | | | , | | | unspec | | | ified | | | | | | Unspec | | | ified | | | abdomi | | | nal | | | pain | | | Type | | | 2 | | | diabet | | | es | | | mellit | | | us | | | withou | | | t | | | compli | | | cation | | | s | | | Allerg | | | y | | | status | | | to | | | narcot | | | ic | | | agent | | | status | | | | | | Other | | | long | | | term | | | (curre | | | nt) | | | drug | | | therap | | | y | | | Allerg | | | y | | | status | | | to | | | other | | | drugs, | | | | | | medica | | | ments | | | and | | | biolog | | | ical | | | sub | | | Apr | | | 19, | | | 2020 | | | [facility] [place] | | [place] | | | Emerge | | | ncy | | | | | | Allerg | | | y | | | status | | | to | | | narcot | | | ic | | | agent | | | status | | | | | | Poison | | | ing by | | | | | | heroin | | | , | | | accide | | | ntal | | | (unint | | | ention | | | al), | | | initia | | | l enco | | | | | | Allerg | | | y | | | status | | | to | | | other | | | antibi | | | otic | | | agents | | | | | | status | | | | | | Type 2 | | | | | | diabet | | | es | | | mellit | | | us | | | withou | | | t | | | compli | | | cation | | | s | | | Chroni | | | c | | | obstru | | | ctive | | | pulmon | | | car | | | diseas | | | e, | | | unspec | | | ified | | | | | | Essent | | | ial | | | (prima | | | ry) | | | hypert | | | ension | | | | | | Nicoti | | | ne | | | depend | | | ence, | | | unspec | | | ified, | | | | | | uncomp | | | licate | | | d | | | Other | | | long | | | term | | | (curre | | | nt) | | | drug | | | therap | | | y Apr | | | 8, | | | 2020 | | | [facility] | [place] | | [place] | | | Emerge | | | ncy | | | Type | | | 2 | | | diabet | | | es | | | mellit | | | us | | | withou | | | t | | | compli | | | cation | | | s | | | Allerg | | | y | | | status | | | to | | | other | | | drugs, | | | | | | medica | | | ments | | | and | | | biolog | | | ical | | | sub | | | | | | Allerg | | | y | | | status | | | to | | | penici | | | llin | | | | | | Sedati | | | ve, | | | hypnot | | | ic or | | | anxiol | | | ytic | | | abuse, | | | | | | uncomp | | | licate | | | d | | | Nicoti | | | ne | | | depend | | | ence, | | | unspec | | | ified, | | | | | | uncomp | | | licate | | | d | | | Long | | | term | | | (curre | | | nt) | | | use of | | | oral | | | hypogl | | | ycemic | | | drugs | | | | | | Essent | | | ial | | | (prima | | | ry) | | | hypert | | | ension | | | | | | Allerg | | | y | | | status | | | to | | | narcot | | | ic | | | agent | | | status | | | | | | Acquir | | | ed | | | absenc | | | e of | | | other | | | specif | | | ied | | | parts | | | of | | | digest | | | greg | | | tract | | | | | | Obesit | | | y, | | | unspec | | | ified | | | | | | Recent | | | | | | Inpati | | | ent | | | Visit | | | Summar | | | yDate | | | Facili | | | ty | | | City | | | State | | | Type | | | Diagno | | | ses or | | | Chief | | | | | | Compla | | | int | | | Aug | | | 23, | | | 2020 | | | [facility] [place] | | | [place] | | | Medica | | | l | | | Surgic | | | al | | | Unspec | | | ified | | | mood | | | [affec | | | tive] | | | disord | | | er | | | Other | | | chroni | | | c pain | | | | | | Contac | | | t with | | | and | | | (suspe | | | cted) | | | exposu | | | re to | | | other | | | viral | | | commun | | | ic | | | Type 2 | | | | | | diabet | | | es | | | mellit | | | us | | | withou | | | t | | | compli | | | cation | | | s | | | Body | | | mass | | | index | | | (BMI) | | | 39.0-3 | | | 9.9, | | | adult | | | | | | Essent | | | ial | | | (prima | | | ry) | | | hypert | | | ension | | | | | | Nonspe | | | cific | | | elevat | | | ion of | | | | | | levels | | | of | | | transa | | | minase | | | and | | | lactic | | | ac | | | | | | Allerg | | | y | | | status | | | to | | | other | | | antibi | | | otic | | | agents | | | | | | status | | | | | | Poison | | | ing by | | | | | | heroin | | | , | | | accide | | | ntal | | | (unint | | | ention | | | al), | | | initia | | | l enco | | | | | | Obstru | | | ctive | | | sleep | | | apnea | | | (adult | | | ) | | | (pedia | | | tric) | | | Care | | | TeamPr | | | ovider | | | | | | Specia | | | lty | | | Phone | | | Fax | | | Servic | | | e | | | Dates | | | SIEDER | | | S, | | | ELIZAB | | | ETH | | | MARCUS, | | | RN | | | Regist | | | ered | | | Nurse: | | | | | | Commun | | | ity | | | Health | | | [phone] | | | | | | [phone] | | | 11 | | | Nick 2, | | | 2018 | | | - | | | Curren | | | t | | | SIEDER | | | S, | | | ELIZAB | | | ETH J, | | | PA-C | | | Physic | | | anthony | | | Assist | | | ant | | | [place] 8, | | | 2020 | | | - | | | Curren | | | t | | | Unknow | | | n | | | Clinic | | | /Cente | | | r | | | ([phone]) | | | [phone] | | | 30 | | | Dec 6, | | | 2019 | | | - | | | Curren | | | t | | | [facility] | | | tive | | | Portal | | | This | | | patien | | | t has | | | regist | | | ered | | | at the | | | | | | [facility] | | | en[facility] | | | [facility] | [facility] | | | [facility] | | | [facility] | | | | | | Emerge | | | ncy | | | Depart | | | ment | | | For | | | more | | | inform | | | ation | | | visit: | | | | | | https: | | | //prov | | | .colle | | | ctivem | | | edical | | | [email or web address] | | | otify/ | | | [id number] | | | [id number] | | | [id number] | | | [email or web address] | | | [email or web address] | | | [id number] | | | | | | PLEASE | | | NOTE: | | | 1. | | | Any | | | care | | | recomm | | | endati | | | ons | | | and | | | other | | | clinic | | | al | | | inform | | | ation | | | are | | | provid | | | ed as | | | guidel | | | paul | | | or for | | | | | | histor | | | ical | | | purpos | | | es | | | only, | | | and | | | provid | | | ers | | | should | | | | | | exerci | | | se | | | their | | | own | | | clinic | | | al | | | judgme | | | nt | | | when | | | provid | | | ing | | | care. | | | 2. | | | You | | | may | | | only | | | use | | | this | | | inform | | | ation | | | for | | | purpos | | | es of | | | treatm | | | ent, | | | paymen | | | t or | | | health | | | care | | | operat | | | ions | | | activi | | | ties, | | | and | | | subjec | | | t to | | | the | | | limita | | | tions | | | of | | | applic | | | able | | | Collec | | | tive | | | Polici | | | es. | | | 3. | | | You | | | should | | | | | | consul | | | t | | | direct | | | ly | | | with | | | the | | | organi | | | zation | | | that | | | provid | | | ed a | | | care | | | guidel | | | ine or | | | other | | | | | | clinic | | | al | | | histor | | | y with | | | any | | | questi | | | ons | | | about | | | additi | | | onal | | | inform | | | ation | | | or | | | accura | | | cy or | | | comple | | | teness | | | of | | | inform | | | ation | | | provid | | | ed.? | | | 2020 | | | Colle[facility] | | | tive | | | Medica | | | l | | | Techn[employer] | | | logies | | | , Inc[employer] | | | - | | | [email or web address] | | | llecti | | | vemedi | | | [email or web address] | | | m | +---+--------+ documented in this encounter Results CT Chest Abdomen Pelvis w Contrast (07/31/2020 2:21 PM PDT) + + | Specimen | + + | | + + + + + | Impressions | Performed At | + + + | Fractures of the left anterior/anterolateral first through sixth | [facility] | | ribs fractures are identified of the right anterior first through | | | seventh ribs. No evidence of pneumothorax or pleural effusion. | | | Minimally displaced mid sternal fracture. Soft tissue tissue | | | thickening surrounding bilateral anterolateral upper rib fractures. | | | These may represent small hematomas/reactive soft tissue thickening | | | with soft tissue masses unable to be entirely excluded. -Consider | | | follow-up CT to confirm resolution and 3 months. Intramuscular | | | contusion versus mass within the left pectoralis major muscle | | | measuring 1.6 cm on series 2 image 19. Patchy areas of groundglass | | | opacities are seen scattered throughout both lungs, possibly in part | | | related to atelectasis, possibly in part related to pulmonary | | | contusions, and with component of consolidation unable to be entirely | | | excluded. Mild anterior mediastinal hazy fat stranding which may | | | represent minimal residual thymic tissue or trace substernal | | | hematoma. Asymmetric enlargement of the right axillary lymph | | | nodes, prominence of a few mediastinal lymph nodes, mild prominence | | | of a few mesenteric lymph nodes, and a few inguinal lymph nodes is | | | nonspecific. These are all subthreshold fracture criteria but remain | | | atypical. Electronically signed by Medardo Prater MD 07/31/2020 3:08 | | | PM | | + + + + + + | Narrative | Performed At | + + + | CT CHEST ABDOMEN PELVIS W CONTRAST 07/31/2020 2:16 PM HISTORY: | [facility] | | Trauma. COMPARISON: None. PROTOCOL: Axial images of the chest, | | | abdomen, and pelvis were obtained after uneventful administration of | | | 100 mL Omnipaque 350. Coronal and sagittal reformations were | | | acquired. CHEST FINDINGS: Atypical enlargement of multiple right | | | axillary lymph nodes with cortical thickening (best seen on series 2 | | | image 39). Neck base is normal. Heart is borderline enlarged. Mild | | | enlargement of a right suprahilar/perihilar lymph node measuring up | | | to 12 mm in short axis. Mild shotty enlargement/prominence of a few | | | mesenteric lymph nodes. Haziness is seen surrounding the upper | | | esophagus/posterior mediastinum. Intramuscular contusion versus mass | | | within the left pectoralis major muscle measuring 1.6 cm on series 2 | | | image 19. Mild patchy mosaic attenuation groundglass opacities are | | | seen scattered throughout both lungs. Bibasilar atelectasis. Left | | | basilar consolidation versus sublobar atelectasis in the left lung | | | base. Fractures of the left anterior/anterolateral first through | | | sixth ribs fractures are identified of the right anterior first | | | through seventh ribs. Minimally displaced mid sternal fracture. There | | | appears to be soft tissue thickening surrounding bilateral | | | anterolateral upper rib fractures. These may represent small | | | hematomas/reactive soft tissue thickening with soft tissue masses | | | unable to be entirely excluded. Consolidation/contusion, or nodule | | | measuring 7 mm in the right upper lobe on series 2 image 4. No | | | evidence of pneumothorax. ABDOMEN FINDINGS: No acute abnormality | | | involving the liver, biliary tree, pancreas, spleen, bilateral | | | adrenal glands, bilateral kidneys, aorta, or bowel. Noninflamed | | | colonic diverticula are seen. Liver is mildly enlarged. Electrical | | | leads are seen extending into the omentum and right pelvis. Multiple | | | borderline prominent mesenteric and common iliac chain lymph nodes. | | | Intrauterine device is present abdominal wall soft tissues. Posterior | | | bilateral flank soft tissue swelling/contusions are present. Urinary | | | bladder and reproductive organs show no acute findings. Mild | | | prominence of a few subthreshold inguinal soft tissues. No acute | | | spinal fracture or pelvic fracture identified. | | + + + + + | Procedure Note | + + | Neal, [id number] - 07/31/2020 3:[address] CHEST ABDOMEN PELVIS W CONTRAST 07/31/2020 | | 2:16 PMHISTORY: Trauma.COMPARISON: None.PROTOCOL: Axial images of the chest, abdomen, | | and pelvis were obtainedafter uneventful administration of 100 mL Omnipaque 350. Coronal | | andsagittal reformations were acquired.CHEST FINDINGS:Atypical enlargement of multiple | | right axillary lymph nodes withcortical thickening (best seen on series 2 image 39). | | Neck base isnormal. Heart is borderline enlarged. Mild enlargement of a | | rightsuprahilar/perihilar lymph node measuring up to 12 mm in short axis.Mild shotty | | enlargement/prominence of a few mesenteric lymph nodes.Haziness is seen surrounding the | | upper esophagus/posteriormediastinum. Intramuscular contusion versus mass within the | | leftpectoralis major muscle measuring 1.6 cm on series 2 image 19.Mild patchy mosaic | | attenuation groundglass opacities are seenscattered throughout both lungs. Bibasilar | | atelectasis. Left basilarconsolidation versus sublobar atelectasis in the left lung | | base.Fractures of the left anterior/anterolateral first through sixth ribsfractures are | | identified of the right anterior first through seventhribs. Minimally displaced mid | | sternal fracture. There appears to besoft tissue thickening surrounding bilateral | | anterolateral upper ribfractures. These may represent small hematomas/reactive soft | | tissuethickening with soft tissue masses unable to be entirely | | excluded.Consolidation/contusion, or nodule measuring 7 mm in the right upperlobe on | | series 2 image 4. No evidence of pneumothorax.ABDOMEN FINDINGS:No acute abnormality | | involving the liver, biliary tree, pancreas,spleen, bilateral adrenal glands, bilateral | | kidneys, aorta, or bowel.Noninflamed colonic diverticula are seen. Liver is mildly | | enlarged.Electrical leads are seen extending into the omentum and right pelvis.Multiple | | borderline prominent mesenteric and common iliac chain lymphnodes. Intrauterine device | | is present abdominal wall soft tissues.Posterior bilateral flank soft tissue | | swelling/contusions are present.Urinary bladder and reproductive organs show no acute | | findings. Mildprominence of a few subthreshold inguinal soft tissues. No acutespinal | | fracture or pelvic fracture identified.IMPRESSION: Fractures of the left | | anterior/anterolateral first through sixth ribsfractures are identified of the right | | anterior first through seventhribs. No evidence of pneumothorax or pleural | | effusion.Minimally displaced mid sternal fracture. Soft tissue tissue thickening | | surrounding bilateral anterolateralupper rib fractures. These may represent small | | hematomas/reactive softtissue thickening with soft tissue masses unable to be | | entirelyexcluded.-Consider follow-up CT to confirm resolution and 3 months.Intramuscular | | contusion versus mass within the left pectoralis majormuscle measuring 1.6 cm on series | | 2 image 19.Patchy areas of groundglass opacities are seen scattered throughoutboth | | lungs, possibly in part related to atelectasis, possibly in partrelated to pulmonary | | contusions, and with component of consolidationunable to be entirely excluded.Mild | | anterior mediastinal hazy fat stranding which may representminimal residual thymic | | tissue or trace substernal hematoma.Asymmetric enlargement of the right axillary lymph | | nodes, prominenceof a few mediastinal lymph nodes, mild prominence of a few | | mesentericlymph nodes, and a few inguinal lymph nodes is nonspecific. These areall | | subthreshold fracture criteria but remain atypical.Electronically signed by Medardo | | MD Moi 07/31/2020 3:08 PM | |spinal fracture or pelvic fracture identified. | | | |IMPRESSION: | |Fractures of the left anterior/anterolateral first through sixth ribs | |fractures are identified of the right anterior first through seventh | |ribs. No evidence of pneumothorax or pleural effusion. | | | |Minimally displaced mid sternal fracture. | | | |Soft tissue tissue thickening surrounding bilateral anterolateral | |upper rib fractures. These may represent small hematomas/reactive soft | |tissue thickening with soft tissue masses unable to be entirely | |excluded. | |-Consider follow-up CT to confirm resolution and 3 months. | | | |Intramuscular contusion versus mass within the left pectoralis major | |muscle measuring 1.6 cm on series 2 image 19. | | | |Patchy areas of groundglass opacities are seen scattered throughout | |both lungs, possibly in part related to atelectasis, possibly in part | |related to pulmonary contusions, and with component of consolidation | |unable to be entirely excluded. | | | |Mild anterior mediastinal hazy fat stranding which may represent | |minimal residual thymic tissue or trace substernal hematoma. | | | |Asymmetric enlargement of the right axillary lymph nodes, prominence | |of a few mediastinal lymph nodes, mild prominence of a few mesenteric | |lymph nodes, and a few inguinal lymph nodes is nonspecific. These are | |all subthreshold fracture criteria but remain atypical. | | | |Electronically signed by Medardo Prater MD 07/31/2020 3:08 PM | + + + +---------+ + + | Performing | Address | City/State/Zipcode | Phone Number | | Organization | | | | + +---------+ + + | [facility] | | | | + +---------+ + + Troponin I (07/31/2020 1:40 PM PDT) + + + + + + | Component | Value | Ref Range | Performed | Pathologist | | | | | At | Signature | + + + + + + | Troponin I | <0.01Comment: | <0.06 ng/mL | [facility] | | | | Comment:Reference | | [facility] | | | | Ranges: 0.00-0.06 = | | MEDICAL | | | | NORMAL >0.06 = | | CENTER - | | | | SUSPICIOUS FOR | | LABORATORY | | | | MYOCARDIAL DAMAGE NOTE: | | | | | | Values greater than | | | | | | 0.78 ng/mL have been | | | | | | shown to be strongly | | | | | | associated with acute | | | | | | myocardial infarction. | | | | | | The [employer] | | | | | | Cardiology (ACC) | | | | | | recommends a decision | | | | | | limit of 0.06 ng/mL for | | | | | | this assay. Results | | | | | | greater than 0.06 can | | | | | | reflect a pre-infarct | | | | | | acute coronary syndrome, | | | | | | but can also reflect | | | | | | myocardial necrosis or | | | | | | injury that is not due | | | | | | to coronary artery | | | | | | disease. Some of these | | | | | | causes are sepsis, | | | | | | hypocolemia, atrial | | | | | | fibrillation, heart | | | | | | failure, pulmonary | | | | | | embolism, myocarditis, | | | | | | myocardial contusion, | | | | | | and renal failure. The | | | | | | diagnosis of myocardial | | | | | | infarction should be | | | | | | based on a combination | | | | | | of the patient's | | | | | | clinical presentation | | | | | | and the clinical | | | | | | laboratory test results | | | | | | (especially serial | | | | | | troponin levels). | | | | + + + + + + + + | Specimen | + + | Blood | + + + + + + + | Performing | Address | City/State/Zipcode | Phone Number | | Organization | | | | + + + + + | [facility] | [address] | [place] | [phone] | | [facility] | | [id number] | | | - LABORATORY | | | | + + + + + Protime INR (07/31/2020 1:40 PM PDT) + + + + + + | Component | Value | Ref Range | Performed | Pathologist | | | | | At | Signature | + + + + + + | Prothrombin | 13.2 | 11.3 - 13.9 | [facility] | | | Time | | seconds | [facility] | | | | | | [facility] | | | | | | CENTER - | | | | | | LABORATORY | | + + + + + + | INR | 1.0Comment: Usual Oral | 0.9 - 1.1 | [facility] | | | | Anticoagulation Range: | | [facility] | | | | 2.0 - 3.0High | | MEDICAL | | | | Level Oral | | CENTER - | | | | Anticoagulation Range: | | LABORATORY | | | | 2.5 - 3.5 | | | | + + + + + + + + | Specimen | + + | Blood | + + + + + + + | Performing | Address | City/State/Zipcode | Phone Number | | Organization | | | | + + + + + | [facility] | [address] | [place] | [phone] | | [facility] | | [address] | | | - LABORATORY | | | | + + + + + Lipase (07/31/2020 1:40 PM PDT) + + + + + + | Component | Value | Ref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
--- OUTSIDE RECORDS SUMMARY | ~2020-09-03 | XMS | Encounter Summary ---
Demographics + + + | Address | [address] | | | [place] [address] | + + + | Home Phone [...] + | Author | [facility] [address] [facility] | + + + | Organization | [facility] [employer] [facility] [...] Providers + +------+ + | Care Supervisor Facepiece Line Name | Role | Phone | + [...] Care Coordination | | 2018 | | [place] | [address] | | | | | Neuro-Ophthalmology | [place], [place] | | | | | at [facility] [address] | [address] | | | | | [facility] | [phone] | | | | | Health and Healing, | | | | | | | | | | | | Floor [place], [place] | | | | | | [address] | | | | | | [phone] | | | +--------+ + + + [...] bad as it is now. Lives in [place], and says there is limite d access [...] She also lives about 40 minutes from [place]. She wo uld like to go there. [...]
--- OUTSIDE RECORDS SUMMARY | ~2020-09-03 | XMS | Encounter Summary ---
Demographics + + + | Address | [address] | | | [place] [address] | + + + | Home Phone | | + + + | Preferred Language | Unknown | + + + | Marital Status | | + + + | Mormonism Affiliation | NON | + + + | Race | or | + + + | Ethnic Group | Not or | + + + Author + + + | Author | [facility] | + + + | Organization | [facility] [employer] [facility] | [...] Team Providers + +------+ + | Care Real Estate Sales Associate Name | Role | Phone | + +------+ + | eYison Simms MD | PCP | Unavailable | [...] | | | | | [facility] for | [address] | | | | | Health and Healing, | [place], [place] | | | | | | [address] | | | | | Floor [place], [place] | | | | | | [address] | | | | | | [phone] | | | +--------+ + + + [...]
--- OUTSIDE RECORDS SUMMARY | ~2020-09-03 | XMS | Encounter Summary ---
Demographics + + + | Address | [address] | | | [place] [address] | + + + | Home Phone [...] [facility] | | | and [place] [...] Team Providers + +------+ + | Care Cma Name | Role | Phone | + +------+ + PCP | Unavailable | + +------+ + Encounter Details +--------+ + + + + | Date | Type | Department | Care Team | Description | +--------+ + + + + | 10/20/ | Hospital | [facility] | | | | 1999 | Encounter | [facility] | | | | | | CENTER [address] | | | | | | [place] | | | | | | [address] | | | | | | [phone] | | | +--------+ + + + [...]
--- OUTSIDE RECORDS SUMMARY | ~2020-09-03 | XMS | Encounter Summary ---
Demographics + + + | Address | [address] | | | [place] [address] | + + + | Home Phone [...] + + | Author | [facility] | + + + | Organization | [facility] [employer] [facility] | + + [...] Providers + +------+ + | Care Cash Teller Name | Role | Phone | + [...] | | | | | | | [address] | | | | | | | [facility] | | | | | | | [place], | | | | | | | [address] [place] [address] | | | | | | | [place], [place] | | | | | | | [address] Phone: | | | | | | | [phone] | | | | | | | Fax: | | | | | | | [phone] | +--------+--------+ + + + + Encounter Details +--------+ + + + + | Date | Type | Department | Care Team | Description | +--------+ + + + + | 03/26/ | Procedure | [facility] | | Visual field testing | | 2012 | | [place] [facility] | | | | | | [facility] at [facility] [address] | | | | | [address] [facility] | | | | | | for Health and | | | | | | Healing, [address], | | | | | | 11th Floor | | | | | | [place], [place] | | | | | | [address] | | | | | | [phone] | | | +--------+ + + + [...] Au was seen in the [facility] [place] [facility] Department today, 2012, for 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 documented in this encounter Plan of Treatment Not on filedocumented as of this encounter Procedures + +--------+ + + + | Procedure Name | Priori | Date/Time | Associated Diagnosis | Comments | | | ty | | | | + +--------+ + + + | SD VISUAL FIELD | Routin | 03/26/2013 | [...]
--- OUTSIDE RECORDS SUMMARY | ~2020-09-03 | XMS | Encounter Summary ---
Demographics + + + | Address | [address] | | | [place] [address] | + + + | Home Phone [...] + | Author | [facility] | + + + | Organization | [facility] [...] Team Providers + +------+ + | Care Triple Air Valve Tester Name | Role | Phone | [...] Report | | 2006 | | Center [place] [address] | | | | | Transcribed | [facility] | | | | | | for Health and | | | | | | Healing, [address] | | | | | | [place], [place] | | | | | | [address] | | | | | | [phone] | | | +--------+ + + + [...] 02/07/2007 12:00 AM PDTAssociated Order(s): OPERATION RECORD [id number] [facility] [id number] Date: 02/07/2007 Attending Surgeon: Hay Hughes M.D. Director Of Laboratory Operations(s): Pascual Bermudez M.D. Preoperative Diagnosis(es): 1. Pseudotumor [...] muscle and medial orbital septum. The assistant program director retracted the orbital fat bag with a [...] in good condition. Hay Hughes M.D. / [id number] / [id number] / [id number] / [id number] cc: Brad Currie M.D. [facility] Brenden Benavides M.D. [facility] [address] [place] [address] Electronically signed by Hay Hughes 02-12-2007 05:13:05 [...] | 02/07/2007 12:00 AM PDT | | [id number] | | [id number] [place] [id number] | | | | Date: 02/07/2007 | | | | Attending Surgeon: Hay Hughes M.D. | | | | Director Of Laboratory Operations(s): Pascual Bermudez M.D. | | | | [...] medial orbital | | septum. The assistant program director retracted the orbital fat bag with a [...] | | | JN / | | [id number] / [id number] / [id number] / [id number] | | | | | | | | cc: | | | | | | Brad Currie M.D. | | [facility] | | | | | | Brenden Benavides M.D. | | [facility] | | [id number] | | [place] [address] | | | | | | Electronically signed by Hay Hughes 02-12-2007 05:13:05 PM | | | | | + + documented in this encounter Visit Diagnoses Not on filedocumented in this encounter"
--- OUTSIDE RECORDS SUMMARY | ~2020-09-03 | XMS | Encounter Summary ---
Demographics + + + | Address | [address] | | | [place] [address] | + + + | Home Phone [...] + | Author | [facility] | + + + | Organization | [facility] [employer] [facility] | + [...] Providers + +------+ + | Care Applications Analyst Name | Role | Phone | + +------+ + | Brenden Benavides MD | PCP | | + +------+ + Encounter Details +--------+ + + + + | Date | Type | Department | Care Team | Description | +--------+ + + + + | 02/23/ | Telephone | [facility] | Brad Currie MD | | | 2006 | | [place] | | | | | | Neuro-Ophthalmology | | | | | | [address] [facility] | | | | | | Mailcode: PATTI | | | | | | [place] [address] | | | | | | [phone] | | | +--------+ + + + [...] seen immediately. Due to patient being in [place] I advised her to contact her oph thalmologist in [place] for immediate appointment. Patient said she would do this. Sergio Alicia Neuro Aeronautical Project Engineer for MD Julieta Nielson MD documented in th is encounter Plan of Treatment Not on filedocumented as of this encounter Visit Diagnoses Not on filedocumented in this encounter"
--- OUTSIDE RECORDS SUMMARY | ~2020-09-03 | XMS | Encounter Summary ---
Demographics + + + | Address | [address] | | | [place] [address] | + + + | Home Phone [...] | Organization | [facility] | | | and [place] [...] Providers + +------+ + | Care Assembler Metal Building Name | Role | Phone | + +------+ + PCP | Unavailable | + +------+ + Encounter Details +--------+ + + + + | Date | Type | Department | Care Team | Description | +--------+ + + + + | 04/24/ | Hospital | [facility] | | | | 1991 | Encounter | MED CTR EMERGENCY | | | | | | CENTER [address] | | | | | | [place] | | | | | | [address] | | | | | | [phone] | | | +--------+ + + + [...]
--- OUTSIDE RECORDS SUMMARY | ~2020-09-03 | XMS | Encounter Summary ---
Demographics + + + | Address | [address] | | | [place] [address] | + + + | Home Phone [...] Author | [facility] | + + + | Organization | [facility] [employer] [facility] | + + + | Address | Unknown | + + + | Phone | Unavailable | + + + Support + + +---------+ + | Name | Relationship | Address | Phone | + + +---------+ + | Ruby Au | ECON | Unknown | | + + +---------+ + Care Team Providers + +------+ + | Care Tyre Fitter Name | Role | Phone | [...] | | | | | [facility] [place] for | [address] | | | | | Health and Healing, | [place], [place] | | | | | Building | [address] | | | | | Floor [place], [place] | | | | | | [address] | | | | | | [phone] | | | +--------+ + + + [...]
--- OUTSIDE RECORDS SUMMARY | ~2020-09-03 | XMS | Encounter Summary ---
Demographics + + + | Address | [address] | | | [place] [address] | + + + | Home Phone [...] | Author | [facility] [employer] [facility] | + + + | Organization | [facility] [employer] [facility] [...] Providers + +------+ + | Care Rotary Machine Operator Name | Role | Phone [...] | | | 2006 | on | [place] | | | | | | Neuro-Ophthalmology | | | | | | [address] | | | | | | Mailcode: PATTI | | | | | | [place] [address] | | | | | | [phone] | | | +--------+ + + + [...] Brad Currie MD Neuro-Ophthalmology and Cerebrovascular Disease Agricultural Crop Farm Manager of Ophthalmology, Neurology, and Neurosurgery documented in this encounter Plan of Treatment Not on filedocumented as of this encounter Visit Diagnoses Not on filedocumented in this encounter"
--- OUTSIDE RECORDS SUMMARY | ~2020-09-03 | XMS | Encounter Summary ---
Demographics + + + | Address | [address] | | | [place] [address] | + + + | Home Phone [...] | Author | [facility] [employer] [facility] | + + + | Organization | [facility] [employer] [facility] | + + [...] Providers + +------+ + | Care Financial Systems Manager Name | Role | Phone | [...] Letter Encounter | | 2009 | | [facility] | [address] | | | | | and Healing [address] | [place], [place] | | | | | [address] [facility] | [address] | | | | | Health and Healing, | [phone] | | | | | | | | | | | Floor [place], [place] | | | | | | [address] | | | | | | [phone] | | | +--------+ + + + [...] 01/27/2009 1:25 PM PSTInformed patient to fax Metabolomx l records release to the medical records department. elephone Encounter - Citlaly Aguilar - 01/22/2009 2:08 PM PSTPatient called to request documentation, on her care with Dr. Pedroza, so she may give this informati on to her family law attorney. Patient indicated that she also needs documentation stating when her la st surgery was and the medications that were prescribed to her for her post-operative recove ry and pain management. Patient requested that this information be sent to Anoop See, [facility] [address] [place] [address]. Please call patient to discuss. documented in this encounter Plan of Treatment Not on filedocumented as of this encounter Visit Diagnoses Not on filedocumented in this encounter"
--- OUTSIDE RECORDS SUMMARY | ~2020-09-03 | XMS | Encounter Summary ---
Demographics + + + | Address | [address] | | | [place] [address] | + + + | Home Phone [...] Author | [facility] | + + + | Organization | [facility] [...] Team Providers + +------+ + | Care Trade Analyst Name | Role | Phone [...] about CAPONE) | | | | [facility] | [place], [place] | | | | | Health and Healing, | [address] | | | | | [facility] | [phone] | | | | | floor [place], [place] | | | | | | [address] | | | | | | [phone] | | | +--------+ + + + [...] She would also like a refill on Bandon. Per Dr. Pedroza, pt's may only have [...]
--- OUTSIDE RECORDS SUMMARY | ~2020-09-03 | XMS | Encounter Summary ---
Demographics + + + | Address | [address] | | | [place] [address] | + + + | Home Phone [...] | Author | [facility] | + + + | Organization | [facility] [employer] [facility] [...] Providers + +------+ + | Care Solar Fabrication Technician Name | Role | Phone | [...] Cerebri | | 2006 | Visit | [facility] | | (Primary Dx) | | | | Neuro-Ophthalmology | | | | | | [address] | | | | | | Mailcode: CE | | | | | | [place] [address] | | | | | | [phone] | | | +--------+---------+ + + + [...] Referred by: CASIMIRO PAYTON MD [address] [place] [address] Symptoms: She has not been taking her [...] Brad Currie MD Neuro-Ophthalmology and Cerebrovascular Disease Glycerin Supervisor of Ophthalmology, Neurology, and Neurosurgery documented [...]
--- OUTSIDE RECORDS SUMMARY | ~2020-09-03 | XMS | Encounter Summary ---
Demographics + + + | Address | [address] | | | [place] [address] | + + + | Home Phone | | + + + | Preferred Language | Unknown | + + + | Marital Status | | + + + | Scientology Affiliation | NON | + + + | Race | or | + + + | Ethnic Group | Not or | + + + Author + + + | Author | [facility] | + + + | Organization | [facility] | + + + | Address | Unknown | + + + | Phone | Unavailable | + + + Support + + +---------+ + | Name | Relationship | Address | Phone | + + +---------+ + | Ruby Au | ECON | Unknown | | + + +---------+ + Care Team Providers + +------+ + | Care Performance Architect Name | Role | Phone | [...] /06/ | Telephone | [facility] | Irina Eulalio Debby, | Headache | | 2015 | | [place] | MD [address] | | | | | Neuro-Ophthalmology | [facility] [place] | | | | | at [facility] [address] | [address] | | | | | [address] [facility] | [phone] | | | | | Health and Healing, | | | | | | | | | | | | Floor [place], [place] | | | | | | [address] | | | | | | [phone] | | | +--------+ + + + [...] to do. She agreed. She lives in [place] and wi ll head to ER close [...]
--- OUTSIDE RECORDS SUMMARY | ~2020-09-03 | XMS | Encounter Summary ---
Demographics + + + | Address | [address] | | | [place] [address] | + + + | Home Phone [...] Author | [facility] | + + + | Organization | [facility] [employer] [facility] | + + + | Address | Unknown | + + + | Phone | Unavailable | + + + Support + + +---------+ + | Name | Relationship | Address | Phone | + + +---------+ + | Ruby Au | ECON | Unknown | | + + +---------+ + Care Team Providers + +------+ + | Care Editing Intern Name | Role | Phone | [...] incision site) | | | | Ave [facility] | [place], [place] | | | | | Health and Healing, | [address] | | | | | | [phone] | | | | | floor [place], [place] | | | | | | [address] | | | | | | [phone] | | | +--------+ + + + [...]
--- OUTSIDE RECORDS SUMMARY | ~2020-09-03 | XMS | Encounter Summary ---
Demographics + + + | Address | [address] | | | [place] [address] | + + + | Home Phone [...] | Author | [facility] [employer] [facility] | + + + | Organization | [facility] [employer] [facility] | + [...] Team Providers + +------+ + | Care Chairman President And Chief Executive Officer Name | Role | Phone | [...] [address] | | | | | | [address] | Ave | | | | | | [address] | [place], [place] | | | | | | [place], | [address] | | | | | | [place] [address] | Phone: | | | | | | Phone: | [phone] | | | | | | [phone] | Fax: | | | | | | Fax: | [phone] | | | | | | [phone] | | +--------+ + + + + [...] | | | Ave Center for | [place], [place] | | | | | Health and Healing, | [address] | | | | | | [phone] | | | | | floor [place], [place] | | | | | | [address] | | | | | | [phone] | | | +--------+---------+ + + + [...] soon. I spent more than 15 minutes [id number] with the patient of which greater than 50% was sp ent counseling the patient regarding the shunt removal, indications and venous sinus stent a ngioplasty. Since her shunt is brent effective now she will need narcotics for headache and he r PCP should manage that. CASIMIRO PAYTON MD NEUROSURGERY [address] Mailcode: Ch8n [facility], 8th Floor [facility] [address] documented in this encou nter Miscellaneous Notes [...]
--- OUTSIDE RECORDS SUMMARY | ~2020-09-03 | XMS | Encounter Summary ---
Demographics + + + | Address | [address] | | | [place] [address] | + + + | Home Phone [...] | Author | [facility]BI [facility] | + + + | Organization | [facility] [employer] Science [facility] [...] Team Providers + +------+ + | Care Leather Cartridge Belt Maker Name | Role | Phone | [...] Refill Request | | 2006 | | [place] | [facility] | | | | | Oculoplastics at | Rd [place], [place] | | | | | [facility] [address] | [address] | | | | | [address] | | | | | | Eye [place] | | | | | | [address] | | | | | | [place] [address] | | | | | | [phone] | | | +--------+ + + + [...] to be seen here or by an data governance consultant in [place], but she says she does not have transportation. I will call in Vicodin #20, pt to call immediately if there is any worsening. Called in Vicodin #20 to [place] [facility] 07 8:32 AM PDTdocumented in this encounter Plan of Treatment Not on filedocumented as of this encounter Visit Diagnoses Not on filedocumented in this encounter"
--- OUTSIDE RECORDS SUMMARY | ~2020-09-03 | XMS | Encounter Summary ---
Demographics + + + | Address | [address] | | | [place] [address] | + + + | Home Phone [...] | [facility] | | | and [place] | [...] Team Providers + +------+ + | Care Admin Secretary Name | Role | Phone | + +------+ + PCP | Unavailable | + +------+ + Encounter Details +--------+ + + + + | Date | Type | Department | Care Team | Description | +--------+ + + + + | 03/14/ | Hospital | [facility] | Pancho Gonzalez | | | 2012 | Encounter | HOSPITAL EMERGENCY | [place] [address] [facility] | | | | | CENTER [address] | [facility] [address] | | | | | [address] [place], [place] | [place], [place] | | | | | [address] | [address] | | | | | [phone] | | | +--------+ + + + [...]
--- OUTSIDE RECORDS SUMMARY | ~2020-09-03 | XMS | Encounter Summary ---
Demographics + + + | Address | [address] | | | [place] [address] | + + + | Home Phone [...] + | Author | [facility] | + + + | Organization | [facility] [employer] [facility] [...] Providers + +------+ + | Care Rug Renovator Name | Role | Phone | + [...] Refill Request | | 2007 | | [facility] | [facility] | | | | | and Healing [address] | Neurosurgery [address] | | | | | [address] [facility] | [address] | | | | | Health and Healing, | [place], [place] | | | | | Building | [address] | | | | | Floor [place], [place] | | | | | | [address] | | | | | | [phone] | | | +--------+--------+ + + + [...]
--- OUTSIDE RECORDS SUMMARY | ~2020-09-03 | XMS | Encounter Summary ---
Demographics + + + | Address | [address] | | | [place] [address] | + + + | Home Phone [...] + + | Author | [facility] | + + + | Organization | [facility] [employer] [facility] | + [...] Providers + +------+ + | Care Roll Reclaimer Name | Role | Phone | + [...] Cerebri; | | 2006 | Visit | [place]/Ophthalmol | | Papilledema | | | | ogy at [facility] [address] | | Associated with | | | | [address] [facility] for | | Increased | | | | Health and Healing, | | Intracranial | | | | Building | | Pressure; Transient | | | | Floor [place], [place] | | Visual Loss | | | | [address] | | | | | | [phone] | | | +--------+---------+ + + + [...] HPI: 31 y.o. year old female from [place] : Patient presents with: Transient visual loss [...] seconds; these occur 2-3 x per [place]. Hobbies: Tobacco use: reports that she has [...] patient to continue follow-up for psuedotumor w [facility] neuro-ophth. Follow up at [facility] prn new symptoms or complaints. [...]
--- OUTSIDE RECORDS SUMMARY | ~2020-09-03 | XMS | Encounter Summary ---
Demographics + + + | Address | [address] | | | [place] [address] | + + + | Home Phone [...] Organization | [facility] [...] Providers + +------+ + | Care Plastic Extrusion Operator Name | Role | Phone | + +------+ + PCP | Unavailable | + +------+ + Encounter Details +--------+ + + + + | Date | Type | Department | Care Team | Description | +--------+ + + + + | 10/04/ | Hospital | [facility] | | | | 1991 | Encounter | [facility] | | | | | | HEALTH [facility] [address] | | | | | | [place], | | | | | | [place] [address] | | | | | | [phone] | | | +--------+ + + + [...]
--- OUTSIDE RECORDS SUMMARY | ~2020-09-03 | XMS | Encounter Summary ---
Demographics + + + | Address | [address] | | | [place] [address] | + + + | Home Phone [...] + | Author | [facility] [employer] [facility] | + + + | Organization | [facility] [employer] [facility] | + + + | Address | Unknown | + + + | Phone | Unavailable | + + + Support + + +---------+ + | Name | Relationship | Address | Phone | + + +---------+ + | Ruby Au | ECON | Unknown | | + + +---------+ + Care Team Providers + +------+ + | Care Dust Operator Name | Role | Phone | [...] | Health and Healing, | [address] [facility] | | | | | Building | [place], [place] | | | | | floor [place], [place] | [address] | | | | | [address] | | | | | | [phone] | | | +--------+---------+ + + + [...]
--- OUTSIDE RECORDS SUMMARY | ~2020-09-03 | XMS | Encounter Summary ---
Demographics + + + | Address | [address] | | | [place] [address] | + + + | Home Phone [...] | Organization | [facility] | | [...] Team Providers + +------+ + | Care Assessment Director Name | Role | Phone | + +------+ + PCP | Unavailable | + +------+ + Encounter Details +--------+ + + + + | Date | Type | Department | Care Team | Description | +--------+ + + + + | 09/30/ | Hospital | [facility] | | | | 1991 | Encounter | [facility] | | | | | | HEALTH [facility] [address] | | | | | | [place], | | | | | | [place] [address] | | | | | | [phone] | | | +--------+ + + + [...]
--- OUTSIDE RECORDS SUMMARY | ~2020-09-03 | XMS | Encounter Summary ---
Demographics + + + | Address | [address] | | | [place] [address] | + + + | Home Phone [...] + | Author | [facility] [employer] [facility] | + + + | Organization | [facility] [employer] [facility] | + [...] Team Providers + +------+ + | Care Timber Treating Tank Operator Name | Role | Phone | [...] | | | | | Ave [facility] | [place], [place] | | | | | Health and Healing, | [address] | | | | | [facility] | [phone] | | | | | floor [place], [place] | | | | | | [address] | | | | | | [phone] | | | +--------+ + + + [...]
--- OUTSIDE RECORDS SUMMARY | ~2020-09-03 | XMS | Encounter Summary ---
Demographics + + + | Address | [address] | | | [place] [address] | + + + | Home Phone [...] | [facility] | [...] Providers + +------+ + | Care Dental Financial Coordinator Name | Role | Phone | + +------+ + PCP | Unavailable | + +------+ + Encounter Details +--------+ + + + + | Date | Type | Department | Care Team | Description | +--------+ + + + + | 07/17/ | Hospital | [facility] | Domingo Darby, | | | 2010 | Encounter | [facility] | [address] | | | | | EMERGENCY CENTER | [place] [address] | | | | | [address] | [phone] | | | | | [place] | | | | | | [address] | | | | | | [phone] | | | +--------+ + + + [...] Maryellen Ramos ARNP - 10/03/2013 12:05 AM [facility] NAME: ANNABELLA STEWART TREATMENT DATE: 07/17/2011 ADMISSION DATE: 07/17/2011 Age/Sex: 35Y / F : 1975 [id number] / [id number] CHIEF COMPLAINT: Anxiety. HISTORY OF PRESENT ILLNESS: [...] saturatio ns 95% on room air. INTEGUMENT: [place], warm and dry. No lesions, lacerations or abrasions. HEENT: Normocephalic, atraumatic. Pupils are equal, round, and reactive to light and accomm odation. EOMs are intact. MUSCULOSKELETAL: Moves all extremities well. HEART: Regular rate and rhythm. LUNGS: Clear. ABDOMEN: Benign. GENITOURINARY/RECTAL: Deferred. MINTHORN,S ANGLEA S ADM:07/17/11 [id number] [facility] ER EMERGENCY DEPARTMENT RECORD [facility] JASPER Dorantes E-Sign: [facility] MD Lizeth Smith THIS REPORT IS CONFIDENTIAL AND NOT TO BE RELEASED WITHOUT PROPER AUTHORIZATION. [facility] NEUROLOGIC: Intact. PSYCHIATRIC: Calm and cooperative. [...] help with sleep at night. Followup with [facility]. Return if symptoms worsen. Discharged stable. JASPER Mc MD P A [facility] #[id number] cc: MD Maryellen Parker ARNP Electronically Signed 07/20/11 0136 Domingo Darby MD MINTHORN,S ANGLEA S ADM:07/17/11 [id number] [facility] ER EMERGENCY DEPARTMENT RECORD [facility] JASPER Dorantes E-Sign: [facility] MD Lizeth Smith THIS REPORT IS CONFIDENTIAL AND NOT TO BE RELEASED WITHOUT PROPER AUTHORIZATION.Electronica lly signed by JASPER Mc at 10/03/2013 10:53 AM PSTdocumented in this encounter Plan of Treatment Not on filedocumented as of this encounter Visit Diagnoses Not on filedocumented in this encounter"
--- OUTSIDE RECORDS SUMMARY | ~2020-09-03 | XMS | Encounter Summary ---
Demographics + + + | Address | [address] | | | [place] [address] | + + + | Home Phone [...] Organization | [facility] | | | and [place] [...] Providers + +------+ + | Care Apprentice Pattern Maker Name | Role | Phone | + +------+ + PCP | Unavailable | + +------+ + Encounter Details +--------+ + + + + | Date | Type | Department | Care Team | Description | +--------+ + + + + | 05/21/ | Hospital | [facility] | | | | 1991 | Encounter | [facility] | | | | | | HEALTH [facility] [address] | | | | | | [place], | | | | | | [place] [address] | | | | | | [phone] | | | +--------+ + + + [...]
--- OUTSIDE RECORDS SUMMARY | ~2020-09-03 | XMS | Encounter Summary ---
Demographics + + + | Address | [address] | | | [place] [address] | + + + | Home Phone [...] + + | Author | [facility] | + + + | Organization | [facility] [employer] [facility] | + [...] Providers + +------+ + | Care Inspector Floor Name | Role | Phone | + [...] Cerebri | | 2006 | Visit | [facility] | Bud Alexander MD [address] | (Primary Dx) | | | | [facility]maxine Whitewright [address] | Cass[place] Hammer | | | | | [address] | [place], [place] | | | | | Eye [place], [facility] | [address] | | | | | [place], [place] | [phone] | | | | | [address] | [...]
--- OUTSIDE RECORDS SUMMARY | ~2020-09-03 | XMS | Encounter Summary ---
Demographics + + + | Address | [address] | | | [place] [address] | + + + | Home Phone [...] Organization | [facility] | | [...] Team Providers + +------+ + | Care Graphics Editor Name | Role | Phone | + +------+ + PCP | Unavailable | + +------+ + Encounter Details +--------+ + + + + | Date | Type | Department | Care Team | Description | +--------+ + + + + | 01/15/ | [facility] | [facility] | Marine Leonard | | | 2012 | Encounter | MED CTR EMERGENCY | Vidal Gaurang BILL | | | | | CENTER [address] | [facility] [place] | | | | | [place] | [address] | | | | | [address] | | | | | | [phone] | | | +--------+ + + + [...] nt states that she was recently in [place] and saw her neurologist. She said she had some tests done in September and October, and said that her ROLL OUT MANAGER shunt was no longer in place. She [...] s tates that she was seen at [place] today for her headache, but she states [...] states that she was seen twice in [place] and was given some sort of medicine, but s he does know the name of it, but it did not help her headache and so she came here for to s alatna further treatment. Apparently when she was at [place], she had received some morphine on one [...] to pseudotumor cerebri a nd having a ROLL OUT MANAGER shunt placed. Again, she states that the [...] Vidal Leonard DO Emergency Medicine JOB #: [id number] EXT JOB #:[id number] <Electronicall y Signed by Jt Leonard DO> 01/21/12 1454 documented in this encounter Plan of Treatment Not on filedocumented as of this encounter Visit Diagnoses Not on filedocumented in this encounter"
--- OUTSIDE RECORDS SUMMARY | ~2020-09-03 | XMS | Encounter Summary ---
Demographics + + + | Address | [address] | | | [place] [address] | + + + | Home Phone [...] Author | [facility] [employer] [facility] | + + + | Organization | [facility] [employer] [facility] | + [...] Providers + +------+ + | Care Paving Crew Foreman Name | Role | Phone [...] | | | | | | | [facility] | | | | | | | Hospital | | | | | | | [place], [place] | | | | | | | [address] | | | | | | | Phone: | | | | | | | [phone] | | | | | | | Fax: | | | | | | | [phone] | +--------+--------+ + + + + Encounter Details +--------+ + + + + | Date | Type | Department | Care Team | Description | +--------+ + + + + | 05/07/ | Hospital | [facility] [address] | [place], | | | 2007 | Encounter | [address] | MD [place] | | | | | 11B [facility] | MD Holden,PhD | | | | | [place] | | | | | | [address] | | | | | | [phone] | | | +--------+ + + + [...] documented in this encounter Procedure Notes Other, [facility] - 05/07/2008 3:15 PM PDTAssociated Order(s): RADIOLOGY Other, [facility] - 3:15 PM PDTAssociated Order(s): ORDERS OTHER Other, [facility] - 05/07/2008 3:15 PM PDT documented in this encounter Miscellaneous Notes Scan - Other, [facility] - 05/07/2008 3:15 PM PDT Scan - Other, [facility] - 05/07/2008 3:15 P M PDT documented [...] Dennis, | | | | | | M.D.Fast Food Manager surgeon: . | | | | [...] | | | | | | vein with6-[employer]oy | | | | | | [...] artery. | | | | | | A5Uhqrym Raffi | | | | | | [...] | | | | | with a 6-[employer] | | | | | | [...] + +---------+ + + | [facility] DEPARTMENT OF | | | | [...]
--- OUTSIDE RECORDS SUMMARY | ~2020-09-03 | XMS | Encounter Summary ---
Demographics + + + | Address | [address] | | | [place] [address] | + + + | Home Phone [...] | Organization | [facility] | | | and [place] [...] Team Providers + +------+ + | Care Commissary Representative Name | Role | Phone | + +------+ + PCP | Unavailable | + +------+ + Encounter Details +--------+ + + + + | Date | Type | Department | Care Team | Description | +--------+ + + + + | 08/16/ | Hospital | [facility] | | | | 1990 | Encounter | [facility] EM[facility]Y | | | | | | CENTER [address] | | | | | | [place] | | | | | | [address] | | | | | | [phone] | | | +--------+ + + + [...]
--- OUTSIDE RECORDS SUMMARY | ~2020-09-03 | XMS | Encounter Summary ---
Demographics + + + | Address | [address] | | | [place] [address] | + + + | Home Phone [...] + | Author | [facility] [employer] [facility] | + + + | Organization | [facility] [employer] [facility] | + + + | Address | Unknown | + + + | Phone | Unavailable | + + + Support + + +---------+ + | Name | Relationship | Address | Phone | + + +---------+ + | Ruby Au | ECON | Unknown | | + + +---------+ + Care Team Providers + +------+ + | Care Blind Hanger Name | Role | Phone | + +------+ + | Brenden Benavides MD | PCP | | + +------+ + Encounter Details +--------+ + + + + | Date | Type | Department | Care Team | Description | +--------+ + + + + | 02/21/ | Telephone | [facility] | [address] | | | 2006 | | [address] | [address] | | | | | Oculoplastics at | [facility], [place] | | | | | Maicol Perez [address] | [address] | | | | | [address] | | | | | | Eye [address] | | | | | | [facility], 5th floor | | | | | | [place] [address] | | | | | | [phone] | | | +--------+ + + + [...] the Vicodin prescription to the pharmacist in [place], he asked me if I was calling [...]
--- OUTSIDE RECORDS SUMMARY | ~2020-09-03 | XMS | Encounter Summary ---
Demographics + + + | Address | [address] | | | [place] [address] | + + + | Home Phone [...] | Organization | [facility] | | | and [place] [...] Team Providers + +------+ + | Care Correspondence Transcriber Name | Role | Phone | + +------+ + PCP | Unavailable | + +------+ + Encounter Details +--------+ + + + + | Date | Type | Department | Care Team | Description | +--------+ + + + + | 08/01/ | Hospital | [facility] | | | | 1991 | Encounter | [facility] | | | | | | [facility] [address] | | | | | | [place], | | | | | | [place] [address] | | | | | | [phone] | | | +--------+ + + + [...]
--- OUTSIDE RECORDS SUMMARY | ~2020-09-03 | XMS | Encounter Summary ---
Demographics + + + | Address | [address] | | | [place] [address] | + + + | Home Phone [...] + + | Author | [facility] [employer] [facility] | + + + | Organization | [facility] [employer] [facility] [...] Providers + +------+ + | Care Packaging Designer Name | Role | Phone | [...] | | | [facility] for | [place], [place] | Encounters | | | | Health and Healing, | [address] | | | | | [facility] | [phone] | | | | | floor [place], [place] | | | | | | [address] | | | | | | [phone] | | | +--------+ + + + [...] Pedroza last approved the rx 05/01/08 for [place] 10-325mg, #90, take 1 tablet every 4-6 hours as needed for pain. I verified this information with the [facility] pharmacy. Kiki approved the rx for [place] 10-325mg, #80, take 1 tablet every 4-6 hours prn, No refills. This was called into [facility] pharmacy, spoke kirt sandra Garcia, . Please [...]
--- OUTSIDE RECORDS SUMMARY | ~2020-09-03 | XMS | Encounter Summary ---
Demographics + + + | Address | [address] | | | [place] [address] | + + + | Home Phone [...] + | Organization | [facility] | | | and [place] [...] Team Providers + +------+ + | Care Harm Reduction Worker Name | Role | Phone | + +------+ + PCP | Unavailable | + +------+ + Encounter Details +--------+ + + + + | Date | Type | Department | Care Team | Description | +--------+ + + + + | 10/10/ | Hospital | [facility] | | | | 1991 | Encounter | [facility] | | | | | | [facility] [address] | | | | | | [place], | | | | | | [place] [address] | | | | | | [phone] | | | +--------+ + + + [...]
--- OUTSIDE RECORDS SUMMARY | ~2020-09-03 | XMS | Encounter Summary ---
Demographics + + + | Address | [address] | | | [place] [address] | + + + | Home Phone [...] | Author | [facility] [employer] [facility] | + + + | Organization | [facility] 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
--- OUTSIDE RECORDS SUMMARY | ~2020-09-03 | XMS | Encounter Summary ---
Demographics + + + | Address | [address] | | | [place] [address] | + + + | Home Phone [...] + | Author | [facility] [employer] [facility] | + + + | Organization | [facility] [employer] [facility] [...] Providers + +------+ + | Care Consultant In Ergonomics And Safety Name | Role | Phone | [...] Cerebri; | | 2006 | Visit | [place] | [address] | Pain in or Around | | | | Oculoplastics at | [place], [place] | Eye | | | | [facility] [address] | [address] | | | | | [address] | [phone] | | | | | Eye [place] | | | | | | [facility] floor | | | | | | [place] [address] | | | | | | [phone] | | | +--------+---------+ + + + [...] to be seen here or by an coal hauler operator in [facility], but she says she does not have transportation. I will call in Vicodin #20, pt to call i mmediately if there is any worsening. Pt states lucho lump in left evangelical is gone. No pain. Pt. Had cough [...]
--- OUTSIDE RECORDS SUMMARY | ~2020-09-03 | XMS | Encounter Summary ---
Demographics + + + | Address | [address] | | | [place] [address] | + + + | Home Phone [...] + | Organization | [facility] | | | and [place] [...] Providers + +------+ + | Care Associate Financial Advisor Name | Role | Phone | + +------+ + PCP | Unavailable | + +------+ + Encounter Details +--------+ + + + + | Date | Type | Department | Care Team | Description | +--------+ + + + + | 07/14/ | Hospital | [facility] | | | | 1998 | Encounter | MED CTR EMERGENCY | | | | | | CENTER [address] | | | | | | [place] | | | | | | [address] | | | | | | [phone] | | | +--------+ + + + [...]
--- OUTSIDE RECORDS SUMMARY | ~2020-09-03 | XMS | Encounter Summary ---
Demographics + + + | Address | [address] | | | [place] [address] | + + + | Home Phone [...] | [facility] [...] Providers + +------+ + | Care Special Services Supervisor Name | Role | Phone [...] | | | | EMERGENCY CENTER | [place], [place] | | | | | [address] [facility] | [address] | | | | | [place], [place] | [phone] | | | | | [address] | | | | | | [phone] | | | +--------+ + + + [...] 03/03/132032 Date of Service: 03/03/132032 Status: Signed Stock Layer: Jovanny Collado RN (Registered Nurse) Dr. Reyes @ BS Jovanny Collado RN 03/03/132032 onver ludwin Transaction, Provider Unknown - 03/03/2013 6:56 PM PDT ED Notes by Jovanny Collado RN at 03/03/131855 Author: Jovanny Collado RN Service: (none) Author Type: Registered Nurse Filed: 03/03/131855 Date of Service: 03/03/131855 Status: Signed Stock Layer: Jovanny Collado RN (Registered Nurse) Dr. Reyes @ BS Jovanny Collado RN 03/03/131855 Artis Sykes DO - 03/03/2013 6:55 PM PDTFormatting of this note might be different from the or iginal. ED Provider Notes by Artis Reyes DO at 03/03/131854 Author: Artis Reyes DO Service: (none) Author Type: Physician Filed: 03/04/132236 Date of Service: 03/03/131854 Status: Signed Stock Layer: Artis Reyes DO (Physician) [facility] Department of Emergency Medicine 6:55 PM History [...] ncludes; cholecystectomy, appendectomy, and one . PCP: [facility] Past Medical History Diagnosis Date [...] sore throat CV/Resp: Negative for chest pain, [id number], cough GI: Negative for diarrhea Positive for [...] plan. Records Reviewed Nursing notes. No previous [facility] ED visits available in [facility] for review. Laboratory Evaluation Results Procedure Component Value Ref Range Date/Time Comprehensive metabolic panel [[id number]] (Abnormal) Collected:03/03/131922 Order Status:Completed Updated:03/03/131953 Specimen Information:Blood [...] 65 U/L EGFR >60 >60 mL/min/1.73m2 Lipase [[id number]] Collected:03/03/131922 Order Status:Completed Updated:03/03/131953 Specimen Information:Blood LIPASE 177 73 - 393 U/L Urine test (LAB) [[id number]] Collected:03/03/131939 Order Status:Completed Updated:03/03/131950 Specimen Information:Urine Preg Test, Ur NEGATIVE POC clinitek 10 [[id number]] (Abnormal) Collected:03/03/131940 Order Status:Completed Updated:03/03/131943 Color, UA [...] WBC, UA NEGATIVE NEGATIVE CBC with differential [[id number]] Collected:03/03/131922 Order Status:Completed Updated:03/03/131935 Specimen Information:Blood WBC [...] Follow up With Details Comments Contact Info [facility] As needed [address] [facility] [address] [facility] EMERGENCY DEPARTMENT If symptoms worsen [address] [facility] [address] Discharge Medications: New Prescriptions DICYCLOMINE (BENTYL) 20 MG TABLET Take 1 tablet by mouth every 6 (six) hours. HYDROCODONE-ACETAMINOPHEN (VICODIN) 5-500 MG PER TABLET Take 1-2 tablets by mouth every 6 (six) hours as needed for Pain. Additional Documentation Procedures Attending Note: Documentation assistance provided by Sean Ortez (Scribe). Information recorded by the scribe has been reviewed and validated by . I jane nolasco with its contents. DO Artis Max DO 03/04/13 2237 documented in this en counter Plan of Treatment Not on filedocumented as of this encounter Visit Diagnoses + + | Diagnosis | + + | Pain, abdominal, unknown etiology Abdominal pain, unspecified site | + + documented in this encounter
--- OUTSIDE RECORDS SUMMARY | ~2020-09-03 | XMS | Encounter Summary ---
Demographics + + + | Address | [address] | | | [place] [address] | + + + | Home Phone [...] + + | Author | [facility] [facility] | + + + | Organization | [facility] [employer] [facility] [...] Providers + +------+ + | Care Mold Car Pusher Name | Role | Phone | [...] | | [facility] | [place], [place] | | | | | Health and Healing, | [address] | | | | | [facility] | [phone] | | | | | floor [place], [place] | | | | | | [address] | | | | | | [phone] | | | +--------+ + + + [...] ref[facility] of Xanax 1mg [facility] [phone] signed by Monica sykes at 05/01/2008 2:11 PM PDTdocumented in this encounter Plan of Treatment Not on filedocumented as of this encounter Visit Diagnoses Not on filedocumented in this encounter"
--- OUTSIDE RECORDS SUMMARY | ~2020-09-03 | XMS | Encounter Summary ---
Demographics + + + | Address | [address] | | | [place] [address] | + + + | Home Phone [...] + + | Author | [facility] [employer] [facility] | + + + | Organization | [facility] [employer] [facility] | [...] Providers + +------+ + | Care Technical Maintenance Technician Name | Role | Phone [...] | | 2006 | Visit | [place] | | (Primary Dx) | | | | Neuro-Ophthalmology | | | | | | [address] [facility] | | | | | | Mailcode: PATTI | | | | | | [place] [address] | | | | | | [phone] | | | +--------+---------+ + + + [...] Referred by: CASIMIRO PAYTON MD [address] [place] [address] Per [facility] chart note taken this morning by . Symptoms: Patient specific problem noted by patient: transient visual loss HPI: 31 y.o. year old female from [place] : Patient presents with: Transient visual loss [...] Brad Currie MD Neuro-Ophthalmology and Cerebrovascular Disease Landscaping Manager of Ophthalmology, Neurology, and Neurosurgery documented in this encounter Plan of Treatment + + +--------+ + + | Name | Type | Priori | Associated Diagnoses | Order Schedule | | | | ty | | | + + +--------+ + + | MD VISUAL FIELD | Procedures | Routin | Pseudotumor | Ordered: 03/27/2007 | | EXAM,EXTENDED | | e | Cerebri | | + + +--------+ + + documented as of this encounter Visit Diagnoses + + | Diagnosis | + + | Pseudotumor cerebri - Primary Benign intracranial hypertension | + + documented in this encounter
--- OUTSIDE RECORDS SUMMARY | ~2020-09-03 | XMS | Encounter Summary ---
Demographics + + + | Address | [address] | | | [place] [address] | + + + | Home Phone [...] | Author | [facility] [employer] [facility] | + + + | Organization | [facility] [employer] [facility] | [...] Providers + +------+ + | Care Director Learning And Development Name | Role | Phone | [...] | | | | | [place] [place] [facility] | [address] | | | | | Health and Healing, | [place], [place] | | | | | | [address] | | | | | Floor [place], [place] | | | | | | [address] | | | | | | [phone] | | | +--------+ + + + [...]
--- OUTSIDE RECORDS SUMMARY | ~2020-09-03 | XMS | Encounter Summary ---
Demographics + + + | Address | [address] | | | [place] [address] | + + + | Home Phone [...] | Located Within [facility] [...] + +------+ + | Care Inventory Control Manager Name | Role | Phone | + +------+ + PCP | Unavailable | + +------+ + Encounter Details +--------+ + + + + | Date | Type | Department | Care Team | Description | +--------+ + + + + | 07/12/ | Hospital [facility] | Conversion | | | 2010 | Encounter | [facility] | Transaction, | | | | | EMERGENCY CENTER | Provider Unknown | | | | | [address] | [phone] | | | | | [place] | | | | | | [address] | | | | | | [phone] | | | +--------+ + + + [...]
--- OUTSIDE RECORDS SUMMARY | ~2020-09-03 | XMS | Encounter Summary ---
Demographics + + + | Address | [address] | | | [place] [address] | + + + | Home Phone [...] Organization | [facility] | | | and [place] [...] Team Providers + +------+ + | Care Histological Illustrator Name | Role | Phone | + +------+ + PCP | Unavailable | + +------+ + Encounter Details +--------+ + + + + | Date | Type | Department | Care Team | Description | +--------+ + + + + | 06/19/ | Hospital | [facility] | | | | 1991 | Encounter | [facility] | | | | | | [facility] [address] | | | | | | [place], | | | | | | [place] [address] | | | | | | [phone] | | | +--------+ + + + [...]
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
--- OUTSIDE RECORDS SUMMARY | ~2020-09-03 | XMS | Encounter Summary ---
Demographics + + + | Address | [address] | | | [place] [address] | + + + | Home Phone [...] + + | Author | [facility] | + + + | Organization | [facility] [facility] | + [...] Team Providers + +------+ + | Care Pantograph Machine Operator Name | Role | Phone | + +------+ + | Dennis Maddox | PCP | | + +------+ + Encounter Details +--------+ + + + + | Date | Type | Department | Care Team | Description | +--------+ + + + + | 03/15/ | Telephone | [facility] | Ronaldo Martin MD | | | 2012 | | [place]hthalmol | [facility] | | | | | ogjaneen at [facility] [address] | [address] [place] [address] | | | | | [facility] | [place] [address] | | | | | Health and Healing, | [phone] | | | | | [facility] | | | | | | Floor [place], [place] | | | | | | [address] | | | | | | [phone] | | | +--------+ + + + [...]
--- OUTSIDE RECORDS SUMMARY | ~2020-09-03 | XMS | Encounter Summary ---
Demographics + + + | Address | [address] | | | [place] [address] | + + + | Home Phone [...] + | Author | [facility] [employer] [facility] | + + + | Organization | [facility] [employer] [facility] [...] Team Providers + +------+ + | Care Upholsterer Helper Name | Role | Phone | [...] 2008 | | DANIELITO Flores | ,PhD [address] | | | | | Rd Mailcode:OP14B | [address] | | | | | [facility] | [place], [place] | | | | | [place], [place] | [address] | | | | | [address] | [phone] | | | | | [phone] | | | +--------+ + + + [...] this encounter Miscellaneous Notes Telephone Encounter - Mgadiel Fallon MD,PhD - 09/14/2009 4:12 PM PDTSpoke [...] resent to the ED either locally in [place] or here at [facility] to be evaluated for her headach es. documented in th is encounter Plan of Treatment Not on filedocumented as of this encounter Visit Diagnoses Not on filedocumented in this encounter"
--- OUTSIDE RECORDS SUMMARY | ~2020-09-03 | XMS | Encounter Summary ---
Demographics + + + | Address | [address] | | | [place] [address] | + + + | Home Phone [...] + | Author | [facility] | + + + | Organization | [facility] [employer] [facility] | + [...] Team Providers + +------+ + | Care Recruitment Coordinator Name | Role | Phone | [...] [place] | | | | | | [facility] | | | | | | Health and Healing, | | | | | | Building | | | | | | floor [place], [place] | | | | | | [address] | | | | | | [phone] | | | +--------+ + + + [...] she was supposed to go to the [facility] ED for a dislodged LPS and [...] if she s able to get to [facility]. Because she inquired, I made clear we cannot help her tra nsport here or evaluate her over the phone. She states she didn t make her Tuesday appt as she had what sounds to be an upper endoscopy to eval for H pylori and the doctor who did th at kept her overnight. She also states she will try to get to [facility] near here. documented i n this encounter Plan of Treatment Not on filedocumented as of this encounter Visit Diagnoses Not on filedocumented in this encounter"
--- OUTSIDE RECORDS SUMMARY | ~2020-09-03 | XMS | Encounter Summary ---
Demographics + + + | Address | [address] | | | [place] [address] | + + + | Home Phone [...] + | Author | [facility] [employer] [facility] | + + + | Organization | [facility] [employer] [facility] [...] Team Providers + +------+ + | Care Bone Plant Supervisor Name | Role | Phone [...] MD | | | 2010 | | Dairy/Ophthalmol | [address] | | | | | leon at [facility] [address] | [place], [place] | | | | | [address] [facility] | [address] | | | | | Health and Healing, | [phone] | | | | | | | | | | | Floor [place], [place] | | | | | | [address] | | | | | | [phone] | | | +--------+ + + + [...] patient is currently unable to travel to [place] since she is caring for her mother who is ill. The patient has an appt scheduled with an change management coordinator in her local area next week. I [...] her to see the financial counselor at [facility]. In the mean time the patient agreed to let me know about any changes in her vision or worse nereida headaches. She was told to go to the ER if necessary. Funmilayo Osorio MD Banquet Director [facility] documented in this encou nter Plan of Treatment Not on filedocumented as of this encounter Visit Diagnoses Not on filedocumented in this encounter"
--- OUTSIDE RECORDS SUMMARY | ~2020-09-03 | XMS | Encounter Summary ---
Demographics + + + | Address | [address] | | | [place] [address] | + + + | Home Phone [...] | Author | [facility] [employer] [facility] | + + + | Organization | [facility] [employer] [facility] [...] Team Providers + +------+ + | Care Roper Operator Name | Role | Phone | [...] | | | Ave Center for | [place], [place] | | | | | Health and Healing, | [address] | | | | | [facility] | [phone] | | | | | floor [place], [place] | | | | | | [address] | | | | | | [phone] | | | +--------+---------+ + + + [...]
--- OUTSIDE RECORDS SUMMARY | ~2020-09-03 | XMS | Encounter Summary ---
Demographics + + + | Address | [address] | | | [place] [address] | + + + | Home Phone [...] | + + +---------+ + | Saadreina Chmaorro | ECON | Unknown | | + + +---------+ + Care Team Providers + +------+ + | Care Medical Record Librarians Teacher Name | Role | Phone | + +------+ + PCP | Unavailable | + +------+ + Encounter Details +--------+ + + + + | Date | Type | Department | Care Team | Description | +--------+ + + + + | 07/24/ | Hospital | [facility] | | | | 1990 | Encounter | MED CTR EMERGENCY | | | | | | CENTER [address] | | | | | | [place] | | | | | | [address] | | | | | | [phone] | | | +--------+ + + + [...]
--- OUTSIDE RECORDS SUMMARY | ~2020-09-03 | XMS | Encounter Summary ---
Demographics + + + | Address | [address] | | | [place] [address] | + + + | Home Phone [...] + + | Author | [facility] [employer] [facility] | + + + | Organization | [facility] [employer] [facility] | + [...] Team Providers + +------+ + | Care Decorative Greens Cutter Name | Role | Phone | [...] Erroneous Encounter | | 2007 | | [facility] | [facility] | - Disregard | | | | and Healing [address] | Neurosurgery [address] | | | | | [address] [facility] | [address] | | | | | Health and Healing, | [place], [place] | | | | | [facility] | [address] | | | | | Floor [place], [place] | | | | | | [address] | | | | | | [phone] | | | +--------+ + + + [...] - Kiki Rosen - 08/14/2008 8:07 PM [id number] Nessa berman signed by Kiki Rosen at 08/14/2008 8:07 PM PDTdocumented in this encounter Plan of Treatment Not on filedocumented as of this encounter Visit Diagnoses Not on filedocumented in this encounter"
--- OUTSIDE RECORDS SUMMARY | ~2020-09-03 | XMS | Encounter Summary ---
Demographics + + + | Address | [address] | | | [place] [address] | + + + | Home Phone [...] | Organization | [facility] | [...] + +------+ + | Care Slot Machine Key Person Name | Role | Phone | + +------+ + PCP | Unavailable | + +------+ + Encounter Details +--------+ + + + + | Date | Type | Department | Care Team | Description | +--------+ + + + + | 09/20/ | Hospital | [facility] | | | | 1991 | Encounter | MED CTR [facility] | | | | | | HEALTH SVCS [address] | | | | | | [place], | | | | | | [place] [address] | | | | | | [phone] | | | +--------+ + + + [...]
--- OUTSIDE RECORDS SUMMARY | ~2020-09-03 | XMS | Encounter Summary ---
Demographics + + + | Address | [address] | | | [place] [address] | + + + | Home Phone [...] Author | [facility] [facility] | + + + | Organization | [facility] [employer] [facility] | + + [...] Providers + +------+ + | Care Supervisor Long Goods Name | Role | Phone | + [...] ) | | | | Physician's | [place], [place] | | | | | F[place], [facility] floor | [address] | | | | | [place], [place] | [phone] | | | | | [address] | | | | | | [phone] | | | +--------+ + + + [...] AM PDTPt states that her bed [facility] floor. She is requesting that Dr. Pedroza write her a prescription for a hosptial bed so she can have it after her surgery on Tuesday05/07/08. If the prescription is approved, please fax to attn: Jessenia [phone]. Please call pt back on her cell phone if approved or denied. She is hoping to get the bed r equested stanislav since surgery is on Tuesday. 08 10:35 AM PDTdocumented in this encounter Plan of Treatment Not on filedocumented as of this encounter Visit Diagnoses Not on filedocumented in this encounter"
--- OUTSIDE RECORDS SUMMARY | ~2020-09-03 | XMS | Encounter Summary ---
Demographics + + + | Address | [address] | | | [place] [address] | + + + | Home Phone [...] | Organization | [facility] | [...] Providers + +------+ + | Care Steam Turbine Assembler Name | Role | Phone | + +------+ + PCP | Unavailable | + +------+ + Encounter Details +--------+ + + + + | Date | Type | Department | Care Team | Description | +--------+ + + + + | 07/21/ | Hospital | [facility] | | | | 1990 | Encounter | MED CTR EMERGENCY | | | | | | CENTER [address] | | | | | | [place] | | | | | | [address] | | | | | | [phone] | | | +--------+ + + + [...]
--- OUTSIDE RECORDS SUMMARY | ~2020-09-03 | XMS | Encounter Summary ---
Demographics + + + | Address | [address] | | | [place] [address] | + + + | Home Phone [...] + + + | Author | [facility] [place] | + + + | Organization | [facility] [...] Team Providers + +------+ + | Care Noise Abatement Engineer Name | Role | Phone | + +------+ + | Dennis aMddox | PCP | | + +------+ + [...] Telephone follow-up | | 2015 | | [place] | [address] | | | | | Neuro-Ophthalmology | [place], [place] | | | | | at [facility] [address] | [address] | | | | | Ave [facility] | [phone] | | | | | Health and Healing, | | | | | | | | | | | | [place], [place] | | | | | | [address] | | | | | | [phone] | | | +--------+ + + + [...]
--- OUTSIDE RECORDS SUMMARY | ~2020-09-03 | XMS | Encounter Summary ---
Demographics + + + | Address | [address] | | | [place] [address] | + + + | Home Phone [...] Author | [facility] [employer] [facility] | + + + | Organization | [facility] [employer] [facility] | + + [...] Providers + +------+ + | Care Cardiovascular Rn Name | Role | Phone | [...] [address] | (refill on [place]) | | | | Ave [facility] | [place], [place] | | | | | Health and Healing, | [address] | | | | | [facility] | [phone] | | | | | floor [place], [place] | | | | | | [address] | | | | | | [phone] | | | +--------+--------+ + + + [...] AM PDTPt is requesting a refill on [place]. Please call pt once this i s completed documented in thi s encounter Plan of Treatment Not on filedocumented as of this encounter Visit Diagnoses Not on filedocumented in this encounter"
--- OUTSIDE RECORDS SUMMARY | ~2020-09-03 | XMS | Encounter Summary ---
Demographics + + + | Address | [address] | | | [place] [address] | + + + | Home Phone [...] + + | Author | [facility] | + + + | Organization | [facility] [employer] [facility] [...] Providers + +------+ + | Care Law Clerk Name | Role | Phone | [...] | | | [place] Mailcode: [id number] | [place], [place] | | | | | [place], [place] | [address] | | | | | [address] | [phone] | | | | | [phone] | | | +--------+ + + + [...]
--- OUTSIDE RECORDS SUMMARY | ~2020-09-03 | XMS | Encounter Summary ---
Demographics + + + | Address | [address] | | | [place] [address] | + + + | Home Phone [...] | Organization | [facility] | | | and [place] [...] Providers + +------+ + | Care Academic Advisement Director Name | Role | Phone | + +------+ + PCP | Unavailable | + +------+ + Encounter Details +--------+ + + + + | Date | Type | Department | Care Team | Description | +--------+ + + + + | 09/27/ | Hospital | [facility] | | | | 1991 | Encounter | [facility] | | | | | | HEALTH [facility] [address] | | | | | | [place], | | | | | | [place] [address] | | | | | | [phone] | | | +--------+ + + + [...]
--- OUTSIDE RECORDS SUMMARY | ~2020-09-03 | XMS | Encounter Summary ---
Demographics + + + | Address | [address] | | | [place] [...] | [facility] | | | and [place] [...] Team Providers + +------+ + | Care Plugman Name | Role | Phone | + +------+ + PCP | Unavailable | + +------+ + Encounter Details +--------+ + + + + | Date | Type | Department | Care Team | Description | +--------+ + + + + | 09/07/ | Hospital | [facility] | | | | 1991 | Encounter | MED CTR EMERGENCY | | | | | | CENTER [address] | | | | | | [place] | | | | | | [address] | | | | | | [phone] | | | +--------+ + + + [...]
--- OUTSIDE RECORDS SUMMARY | ~2020-09-03 | XMS | Encounter Summary ---
Demographics + + + | Address | [address] | | | [place] [address] | + + + | Home Phone [...] | Organization | [facility] | | | and [place] | [...] Providers + +------+ + | Care Research Contracts Supervisor Name | Role | Phone | [...] | | | [address] | | | | | [place], [place] | [place] [address] | | | | | [address] | | | | | | [phone] | | | +--------+ + + + [...]
--- OUTSIDE RECORDS SUMMARY | ~2020-09-03 | XMS | Encounter Summary ---
Demographics + + + | Address | [address] | | | [place] [address] | + + + | Home Phone [...] [facility] | | | and [place] [...] Providers + +------+ + | Care Explosive Operator Name | Role | Phone | + +------+ + PCP | Unavailable | + +------+ + Encounter Details +--------+ + + + + | Date | Type | Department | Care Team | Description | +--------+ + + + + | 10/14/ | Hospital | [facility] | | | | 1991 | Encounter | MED [facility] | | | | | | HEALTH [facility] [address] | | | | | | [place], | | | | | | [place] [address] | | | | | | [phone] | | | +--------+ + + + [...]
--- OUTSIDE RECORDS SUMMARY | ~2020-09-03 | XMS | Encounter Summary ---
Demographics + + + | Address | [address] | | | [place] [address] | + + + | Home Phone [...] + + | Author | [facility] | + + + | Organization | [facility] | + [...] Providers + +------+ + | Care Railroad Hand Name | Role | Phone | + +------+ + | Brenden Benavides MD | PCP | | + +------+ + Encounter Details +--------+ + + + + | Date | Type | Department | Care Team | Description | +--------+ + + + + | 02/23/ | Telephone | [facility] | Brad Currie MD | | | 2006 | | [place] | | | | | | Neuro-Ophthalmology | | | | | | [address] [facility] | | | | | | Mailcode: PATTI | | | | | | [place] [address] | | | | | | [phone] | | | +--------+ + + + [...] states she is not able to see publications inspector in [place]- they will not see her. I spoke [...] mid sentence (second time). Omkar mccabe is nrq-[id number]-M will not attempt to call patient again. Sergio Alicia Neuro Vision Impaired Teacher for MD Julieta Nielson MD I documented in t his encounter Plan of Treatment Not on filedocumented as of this encounter Visit Diagnoses Not on filedocumented in this encounter
--- OUTSIDE RECORDS SUMMARY | ~2020-09-03 | XMS | Encounter Summary ---
Demographics + + + | Address | [address] | | | [place] [address] | + + + | Home Phone [...] + | Organization | [facility] | | | and [place] [...] Providers + +------+ + | Care Customer Consultant Name | Role | Phone | + +------+ + PCP | Unavailable | + +------+ + Encounter Details +--------+ + + + + | Date | Type | Department | Care Team | Description | +--------+ + + + + | 01/27/ | Hospital | [facility] | [place] | | | 2012 - | Encounter | MED CTR EMERGENCY | DO Gaurang Drake | | | | | CENTER [address] | [place], [place] | | | 01/28/ | | [place], [place] | [address] | | | 2011 | | [address] | | | | | | [phone] | | | +--------+ + + + [...] her discharge instructions with referral to a sales agent financial report service for the rash, as well as a prescription for tramadol, including a home pack of it, and some Zofran. She walked out before evaluation was complete . Therefore, please add to the discharge diagnosi s, left before evaluation complete. DICTATED BY: Vern Carlin M.D. Emergency Medicine JOB #: [id number] EXT JOB #:[id number] <Electronicall y Signed by Vern Carlin MD> 02/07/12 0734 Vern Carlin MD - 01/28/2012 10:55 PM PSTDATE: 01/28/2012 CHIEF COMPLAINT: Headache and rash. 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 [...] want to go to the ER in [place], as she has had bad experience with [...] Vern Carlin M.D. Emergency Medicine JOB #: [id number] EXT JOB #:[id number] <Electronicall y Signed by Vern Carlin MD> [...] Performed At | + + + | [facility] Diagnostic Imaging Department | [facility] | | [address] [facility] | [facility] | | UNENHANCED HEAD CT, 01/28/2012, [...] COMMUNICATED TO THE ER STAFF BY THE [facility] RADIOLOG IST ON | | | 01/29/2012 AT 0003 HOURS. Dictated Date/Time: 01/29/2012 09:41 | | | Transcribed Date/Time: 01/29/2012 09:47 Picker Tender: | | | <Electronically Signed by Ivan Smalls MD> 01/29/12 1606 | | + + + + + | Procedure Note | + + | Neal, Rad Conversion - 01/04/2014 4:[address] [facility] | | Diagnostic Imaging Department [address] [place] [address] | | UNENHANCED HEAD CT, 01/28/2012, 2342 [...] THE ER STAFF BY | | THE [facility] RADIOLOGIST ON 01/29/2012 AT 0003 HOURS. Dictated [...] 09:41 | |Transcribed Date/Time: 01/29/2012 09:47 | |Picker Tender: | |<Electronically Signed by Ivan Smalls MD> [...]
--- OUTSIDE RECORDS SUMMARY | ~2020-09-03 | XMS | Encounter Summary ---
Demographics + + + | Address | [address] | | | [place] [address] | + + + | Home Phone [...] + | Organization | [facility] | | | and [place] [...] Providers + +------+ + | Care Pipe Threading Machine Operator Name | Role | Phone | + +------+ + PCP | Unavailable | + +------+ + Encounter Details +--------+ + + + + | Date | Type | Department | Care Team | Description | +--------+ + + + + | 05/25/ | Hospital | [facility] | | | | 1991 | Encounter | [facility] | | | | | | HEALTH [facility]CS [address] | | | | | | [place], | | | | | | [place] [address] | | | | | | [phone] | | | +--------+ + + + [...]
--- OUTSIDE RECORDS SUMMARY | ~2020-09-03 | XMS | Encounter Summary ---
Demographics + + + | Address | [address] | | | [place] [address] | + + + | Home Phone [...] + | Author | [facility] [employer] [facility] | + + + | Organization | [facility] [employer] [facility] | + [...] Providers + +------+ + | Care Life Insurance Sales Name | Role | Phone | [...] Cerebri | | 2006 | Visit | [place] | | (Primary Dx) | | | | Neuro-Ophthalmology | | | | | | [address] [facility] | | | | | | Mailcode: PATTI | | | | | | [place] [address] | | | | | | [phone] | | | +--------+---------+ + + + [...] Brad Currie MD Neuro-Ophthalmology and Cerebrovascular Disease Ramp Service Employee of Ophthalmology, Neurology, and Neurosurgery documented in [...]
--- OUTSIDE RECORDS SUMMARY | ~2020-09-03 | XMS | Encounter Summary ---
Demographics + + + | Address | [address] | | | [place] [address] | + + + | Home Phone [...] + | Author | [facility] | + + + | Organization | [facility] [employer] [facility] [...] Team Providers + +------+ + | Care Divorce Mediator Name | Role | Phone | + [...] | | | | Sky Maloney | [facility], | | | | | | [place], [place] | 10th Floor | | | | | | [address] | [place], [place] | | | | | | Phone: | [address] | | | | | | [phone] | Phone: | | | | | | Fax: | [phone] | | | | | | [phone] | Fax: | | | | | | | [phone] | +--------+--------+ + + + + Reason [...] Emergency | [facility] Emergency | Abby Whyte MD | | | 2012 | | Department [address] | [address] | | | | [address] | [facility] | | | | | [facility] | [place], [place] | | | | | [place] | [address] | | | | | [address] | [phone] | | | | | [phone] | | | | | | | [...] was a malfunction in your shunt. The prescription eyeglass maker recommends you taking Diomox again and follow up in 1 week at [facility]. Please follow up with your doctor. Rest, [...] MONSIVAIS MD Attending Physician: Ru Roque MD Curing Press Operator Attending: Dewey Goodwin MD CC: history of [...] - no pronator drift Bi Tri Delt Supervisor Pole Yard WE HI HF KE DF PF EHL [...] -No acute [place] [address] PGY-[address] Goodwin, attending neurosurgeon international sourcing manager, who agrees with the above. Hay [...] done Previously followed by Dr. Currie at [facility] (last seen 02/2007) Previously on Diamox (max [...] sheath fenestra tion (by Dr. Celis at [facility] in 2006) and s/p multiple lumboperitoneal shunt [...] convergence i nsufficiency as outpatient -Follow-up with [facility] (Comprehensive Division at [facility]) in 1-2 weeks Patient t o call [phone] for appointment. Call or return to Emergency Department sooner if sympto ms worsen. Peña Martin Resident PGY-2 [facility] 03/13/2013 documented in this encounter ED Notes [...] PLASMA (LAB) 0.83 0.60-1.10 mg/dL EGFR - BELGIAN >60 >60 mL/min EGFR NON -BELGIAN >60 >60 mL/min SODIUM, PLASMA (LAB) 141 [...] Pt6 is being signed out to the [facility] ED t jelani. ED Medication Administration from 03/13/2013 1142 to 03/13/20139 Date/Time Order Dose Route Action 03/13/2013 8687 NaCl 0.9 % IV 1,000 mL Intravenous Given/New Bag IMPRESSION: -weight gain,etiology unclear -concern for recurrent pseudotumor cerebri. PLAN, DISPOSITION AND FOLLOW-UP: -SBAR to Drs. Gilbert and Mya for further evaluation/management, f/u with consultants an d final disposition. Shabnam Persaud RN - 03/13/2013 8:21 PM PDTPt ambulating around halls with family at side. Ru Ernts MD - 03/13/2013 5:13 PM P DTSBAR from Drs. Lopez and Cash at 5:13 PM 37 yr old woman, hx PTC, lumbar shunt placed 2008 Drove here from [place], usually seen in [place] One week of "40 pound weight gain" [...] not recommend LP. Ru Roque MD, FACEP Coil Connector Repairer, Emergency Medicine Ru Roque MD, FACEP Coil Connector Repairer, Emergency Medicine u Roque MD - 03/13/2013 5:04 PM PDT 5:04 PM, AMOL ALTMAN MD, Resident Note Sign out from Dr. Lopez and Dr. Whyte at 5:04 PM. Situation: In summary, Annabella Au is a 37 y.o. female who presented with headache for 4 days w/ hx of IT TECHNICAL ARCHITECT shunt. Background: Significant Past medical History: [...] PLASMA (LAB) 0.83 0.60-1.10 mg/dL EGFR - BELGIAN >60 >60 mL/min EGFR NON -BELGIAN >60 >60 mL/min SODIUM, PLASMA (LAB) 141 [...] cost clinic Return precautions given F/u with [facility] in 1-2 weeks Diomox 500mg BID Oxycodone Amol Altman MD R2 Emergency Medicine Resident gapito, Amol - 013 5:04 PM PDT 5:04 PM, AMOL ALTMAN MD, Resident Note Sign out from Dr. Lopez and Dr. Whyte at 5:04 PM. Situation: In summary, Annabella Au is a 37 y.o. female who presented with headache for 4 days w/ hx of IT TECHNICAL ARCHITECT shunt. Background: Significant Past medical History: [...] PLASMA (LAB) 0.83 0.60-1.10 mg/dL EGFR - BELGIAN >60 >60 mL/min EGFR NON -BELGIAN >60 >60 mL/min SODIUM, PLASMA (LAB) 141 [...] cost clinic Return precautions given F/u with [facility] in 1-2 weeks Diomox 500mg BID Oxycodone Amol Altman MD R2 Emergency Medicine Resident Marcelo Varma R N - 03/13/2013 12:00 PM PDTPatient c/o SOB, CP and weight gain of 41 lbs over 1 week per pat iedanish. Halle Posey EMT - 03/13/2013 11:52 AM PDTPt was scoped for [facility] on Tuesday. Electronically josiah d by SAURABH Anderson at 03/13/2013 11:52 AM Monica Posey EMT - 03/13/2013 11: 45 AM PDTPt CO head pain, vision disturbance, nausea, vomiting. Pt has a IT TECHNICAL ARCHITECT shunt. Pt states referring hospital says [...] reports she has CT last Tuesday at [facility], states " They said my shunt was dislodged". Pt is a/ox4.Electronically signed by Elisabeth Ortiz RN at 11:44 AM Elisabeth Bella RN - 03/13/2013 11:43 AM PDTPossible IT TECHNICAL ARCHITECT shunt malfunction, CAPONE x4 days. documented in this encounter Miscellaneous Notes Scan - Other, Faculty - 03/15/2013 9:40 AM PDTElectronically signed by Faculty Other at 9:40 AM PDTED Teaching Notes - Abby Whyte MD - 03/13/2013 8:46 PM PDTNo [facility] note - see shared [...] TOTH | [address] | [place], [place] | | | NACHO POINT OF CARE | [address] | [address] | | | TESTS | | | [...] [facility] | [address] | [place] [address] | | | SERVICES, CORE | PARK [...] | | | | | CHRISTIANO TORRES ([id number]) | | | | | | on 03/14/2013 10:35:55 AM | | | | + + + + + + + + | Specimen | + + | | + + + + + | Narrative | Performed At | + + + | Please click | [facility] DEPT [facility] | | on view image for the detailed interpretation from [employer] results. | CARDIOLOGY | + + + + + + + + | Performing | Address | City/State/Zipcode | Phone Number | | Organization | | | | + + + + + | [facility] | [address] | [place], [place] | | | CARDIOLOGY | [address] | [address] | | + + + + + [...] - KRIS[facility] | [address] | [place], [place] | | | NACHO POINT OF CARE | [facility] | [address] | | | TESTS | | | [...] + + + | [facility] | [address] | [place] [address] | | | SERVICES, CORE | PARK [...] | + + + + + | [facility] | [address] [facility] [facility] [address] | [place] [address] | | | SERVICES, CORE | SKY [...] | | | LABORATORY | | | BELGIAN | | | SERVICES, | | | [...] + + + | [facility] | [address] | [place] [address] | | | SERVICES, CORE | PARK [...] | + + + + + | [facility] | [address] | [place] [address] | | | SERVICES, CORE | PARK [...] + | [place] - AIRPORT - | [address] | [place] [address] | | | [place] | | | [...] | + + + + + | [facility] | [address] | [place] [address] | | | SERVICES, CORE | SKY [...]
--- OUTSIDE RECORDS SUMMARY | ~2020-09-03 | XMS | Encounter Summary ---
Demographics + + + | Address | [address] | | | [place] [address] | + + + | Home Phone [...] | Author | [facility] Scope [facility] | + + + | Organization | [facility] [employer] [facility] | + [...] Team Providers + +------+ + | Care Outsole Leveler Name | Role | Phone | + [...] Cerebri | | 2006 | Visit | [place] | | (Primary Dx) | | | | Neuro-Ophthalmology | | | | | | [address] [facility] | | | | | | Mailcode: PATTI | | | | | | [place] [address] | | | | | | [phone] | | | +--------+---------+ + + + [...] Referred by: CASIMIRO PAYTON MD [address] [place] [address] Symptoms: Patient feels things are better. Vision [...] Brad Currie MD Neuro-Ophthalmology and Cerebrovascular Disease Commercial Installer of Ophthalmology, Neurology, and Neurosurgery documented [...]
--- OUTSIDE RECORDS SUMMARY | ~2020-09-03 | XMS | Encounter Summary ---
Demographics + + + | Address | [address] | | | [place] [address] | + + + | Home Phone [...] Author | [facility] [employer] webtech limited [facility] | + + + | Organization | [facility] [employer] [facility] [...] Providers + +------+ + | Care Animal Nutrition Teacher Name | Role | Phone | [...] Ave | | | | | Ave [place] for | [place], [place] | | | | | Health and Healing, | [address] | | | | | [facility] | [phone] | | | | | floor [place], [place] | | | | | | [address] | | | | | | [phone] | | | +--------+--------+ + + + [...] AM PDTLori called in an Rx for [place] for pt however the pharm called back with some questions. Ky said she will talk to Teresa lopez about this pt as we have never perscribed this drug. elephone Encounter - Mandi Mcdonnell - 08/14/2008 8:16 AM PDTPt wo uld like an RX for [place]. doc umented in this encounter Plan of Treatment Not on filedocumented as of this encounter Visit Diagnoses Not on filedocumented in this encounter"
--- OUTSIDE RECORDS SUMMARY | ~2020-09-03 | XMS | Encounter Summary ---
Demographics + + + | Address | [address] | | | [place] [address] | + + + | Home Phone [...] | Author | [facility] [facility] | + + + | Organization | [facility] [employer] [facility] | + [...] Team Providers + +------+ + | Care Plaster Model And Mold Maker Name | Role | Phone | [...] | | 2012 | anned | [address] [facility] | | | | | | [address] | | | | | | [place], [place] | | | | | | [address] | | | +--------+ + + + [...]
--- OUTSIDE RECORDS SUMMARY | ~2020-09-03 | XMS | Encounter Summary ---
Demographics + + + | Address | [address] | | | [place] [address] | + + + | Home Phone [...] | Author | [facility] [employer] [facility] | + + + | Organization | [facility] [employer] [facility] [...] Team Providers + +------+ + | Care Subcontracts Manager Name | Role | Phone | [...] | | | Ave [facility] for | [place], [place] | | | | | Health and Healing, | [address] | | | | | Building , | [phone] | | | | | floor [place], [place] | | | | | | [address] | | | | | | [phone] | | | +--------+ + + + [...] already. I encouraged her to return to [place] to be seen in our ED by the neurosurgeons patient relations liaison. I explained that this was a n occasion that we are unable to treat on the phone. She will call for transportation and if this is not resolved will look into returning to [facility] on Tuesday. do cumented in this encounter Plan of Treatment Not on filedocumented as of this encounter Visit Diagnoses Not on filedocumented in this encounter"
--- OUTSIDE RECORDS SUMMARY | ~2020-09-03 | XMS | Encounter Summary ---
Demographics + + + | Address | [address] | | | [place] [address] | + + + | Home Phone [...] + | Author | [facility] [employer] [facility] | + + + | Organization | [facility] [employer] [facility] | + + [...] Providers + +------+ + | Care Infrastructure Administrator Name | Role | Phone | [...] Erroneous Encounter | | 2007 | | [facility] | [facility] | - Disregard | | | | and Healing [address] | Neurosurgery [address] | | | | | [address] [facility] | [address] | | | | | Health and Healing, | [place], [place] | | | | | [facility] | [address] | | | | | Floor [place], [place] | | | | | | [address] | | | | | | [phone] | | | +--------+ + + + [...]
--- OUTSIDE RECORDS SUMMARY | ~2020-09-03 | XMS | Encounter Summary ---
Demographics + + + | Address | [address] | | | [place] [address] | + + + | Home Phone [...] | [facility] | | | and [place] [...] Providers + +------+ + | Care Newspaper Photojournalist Name | Role | Phone | + +------+ + PCP | Unavailable | + +------+ + Encounter Details +--------+ + + + + | Date | Type | Department | Care Team | Description | +--------+ + + + + | 06/10/ | Hospital | [facility] | | | | 1991 | Encounter | [facility] | | | | | | [facility] [address] | | | | | | [place], | | | | | | [place] [address] | | | | | | [phone] | | | +--------+ + + + [...]
--- OUTSIDE RECORDS SUMMARY | ~2020-09-03 | XMS | Encounter Summary ---
Demographics + + + | Address | [address] | | | [place] [address] | + + + | Home Phone [...] | [facility] | | | and [...] Providers + +------+ + | Care Supervisor Dehydrogenation Name | Role | Phone | + +------+ + PCP | Unavailable | + +------+ + Encounter Details +--------+ + + + + | Date | Type | Department | Care Team | Description | +--------+ + + + + | 01/01/ | Hospital | [facility] | [place] | | | 2009 | Encounter | [facility] | Brad Yu MD [address] | | | | | CENTER [address] | [place] | | | | | [place] | [place] [address] | | | | | [address] | [phone] | | | | | [phone] | | | +--------+ + + + [...]
--- OUTSIDE RECORDS SUMMARY | ~2020-09-03 | XMS | Clinical Summary ---
Demographics + + + | Address | [address] | | | [place] [address] | + + + | Home Phone [...] | [facility] | [...] Providers + +------+ + | Care School Fundraising Director Name | Role | Phone [...] + + | 08/04/ | Emergency | Emergency Medicine | Christi Contreras, | Rib pain (Primary | | 2019 | | | Suraj Olea MD | Dx) | +--------+ + + + + | [...] | | | | | Screening | 0 | | | + + + + + | Med Mgmt: Cr | | 08/04/20 | | | | 1 | 20, | | | | | 07/31/20 | | | | | 20, | | | | | 05/27/20 | | | | | 17, | | | | | Addition | | | | | al | | | | | history | | | | | exists | | + + + + + | Med Mgmt: K | | 08/04/20 | | | | 1 | 20, | | | | | 07/31/20 | | | | | 20, | | | | | 05/27/20 | | | | | 17, | | | | | Addition | | | | | al | | | | | history | | | | | exists | | + + + + + | Med Mgmt: eGFR | | 08/04/20 | | | | 1 | 20, | | | | | 07/31/20 | | | | | 20, | | | | | 05/27/20 | | | | | 17, | | | | | Addition | [...] S?MRN: | | | | | | [id number] | | | [id number] | | | riteri | | | [...] | | | St. | | | [facility] | | | y | | | [...] | | | St. | | | [facility] | | | y | | | [...] | | | St. | | | [facility] | | | y | | | [...] 2020 | | | | | | [place] | | | ED | | | Dispar | | | ity | | | Measur | | | e - | | | [place] | | | has | | | [...] | | | s. | | | [place] | | | | | | Health [...] | | | By: | | | [place] | | | | | | Health [...] | | | St. | | | [facility] | | | y | | | [...] | | | St. | | | [facility] | | | y H. | | [...] | | | St. | | | [facility] | | | y H. | | [...] | | | St. | | | [facility] | | | y H. | | [...] | | | St. | | | [facility] | | | y H. | | [...] | | | St. | | | [facility] | | | y H. | | [...] | | | St. | | | [facility] | | | y H. | | [...] | | | St. | | | [facility] | | | y H. | | [...] | | | St. | | | [facility] | | | y H. | | [...] | | | St. | | | [facility] | | | y H. | | [...] [email or web address] | | | m | +---+--------+ + +--------+ +---+ + | CT CHEST ABDOMEN | STAT | 07/31/2020 | | Results for this | | PELVIS W CONTRAST | | 2:21 PM | | procedure are in the | | | | PDT | | results section. | + +--------+ +---+ + | TROPONIN I | Routin | 07/31/2020 | | Results for this | | | e | 1:40 PM | | procedure are in the | | | | PDT | | results section. | + +--------+ +---+ + | PROTIME INR | STAT | 07/31/2020 | | Results for this | | | | 1:40 PM | | procedure are in the | | | | PDT | | results section. | + +--------+ +---+ + | LIPASE | STAT | 07/31/2020 | | Results for this | | | | 1:40 PM | | procedure are in the | | | | PDT | | results section. | + +--------+ +---+ + | COMPREHENSIVE | STAT | 07/31/2020 | | Results for this | | METABOLIC PANEL | | 1:40 PM | | procedure are in the | | | | PDT | | results section. | + +--------+ +---+ + | CBC WITH | STAT | 07/31/2020 | | Results for this | | DIFFERENTIAL | | 1:40 PM | | procedure are in the | | | | PDT | | results section. | + +--------+ +---+ + | B TYPE NATRIURETIC | STAT | 07/31/2020 | | Results for this | | PEPTIDE | | 1:40 PM | | procedure are in the | | | | PDT | | results section. | + +--------+ +---+ + | ECG 12 LEAD | STAT | 07/31/2020 | | Results for this | | | | 12:54 PM | | procedure are in the | | | | PDT | | results section. | + +--------+ +---+ + | XR CHEST AP PORTABLE | STAT | 07/31/2020 | | Results for this | | | | 12:45 PM | | procedure are in the | | | | PDT | | results section. | + +--------+ +---+ + | OXYGEN THERAPY | STAT | 07/31/2020 | | | | | | 12:42 PM | | | | | | PDT | | | + +--------+ +---+ + | ED INFORMATION | Routin | 07/31/2020 | | | | EXCHANGE | e | 11:46 AM | | | | | | PDT | | | + +--------+ +---+ + +---+--------+ | | | | | [...] S?MRN: | | | | | | [id number] | | | [id number] | | | riteri | | | [...] | | | St. | | | [facility] | | | y | | | [...] | | | St. | | | [facility] | | | y | | | [...] | | | St. | | | [facility] | | | y | | | Hospit | | | alHX:? | | | OPIOD | | | | | | OVERDO | | | SESFla | | | gs | | | [place] | | | ED | | | Dispar | | | ity | | | Measur | | | e - | | | [place] | | | has | | | [...] | | | s. | | | [place] | | | | | | Health [...] | | | By: | | | [place] | | | | | | Health [...] | | | St. | | | [facility] | | | y | | | [...] | | | St. | | | [facility] | | | y H. | | [...] | | | St. | | | [facility] | | | y H. | | [...] | | | St. | | | [facility] | | | y H. | | [...] | | | St. | | | [facility] | | | y H. | | [...] | | | St. | | | [facility] | | | y H. | | [...] | | | St. | | | [facility] | | | y H. | | [...] | | | St. | | | [facility] | | | y H. | | [...] | | | St. | | | [facility] | | | y H. | | [...] | | | St. | | | [facility] | | | y H. | | [...] | | | St. | | | [facility] | | | y H. | | [...] | | | [email or web address] | | | [id number] | | | | | | PLEASE [...] | +---+--------+ from Last 3 Months Results CBC with Differential (08/04/2020 8:17 AM PDT)Only the most recent of 2 results within the time period is included. + + + + + + | [...] | | Cells | | M/uL | . [facility] | | | | | | [...] | Eosinophils | | K/uL | [facility] | | | | | | MEDICAL | | | | | | CENTER - | | | | | | LABORATORY | | + + + + + + | Absolute | 0.05 | 0.00 - 0.10 | [facility] | | | Basophils | | K/uL | [facility] | | | | | | MEDICAL | | | | | | CENTER - | | | | | | LABORATORY | | + + + + + + | Absolute | 0.03 | 0.00 - 0.03 | [facility] | | | Immature | | K/uL | [facility] | | | Granulocyte | | | MEDICAL | | | s | | | CENTER - | | | | | | LABORATORY | | + + + + + + | % nRBC | 0 | 0 - 2 per 100 | [facility] | | | | | WBCs | [facility] | | | | | | MEDICAL | | | | | | CENTER - | | | | | | LABORATORY | | + + + + + + | Absolute | 0.00 | 0.00 - 0.01 | [facility] | | | nRBC | | K/uL [...] [address] | [place] | [phone] | | [facility] | | [address] | | | - LABORATORY | | | | + + + + + Comprehensive Metabolic Panel (08/04/2020 8:17 AM PDT)Only the most recent of 2 results wi thin the time period is included. + + + + + + | [...] 83 | 60 - 106 mg/dL | [facility] | | | | | | [facility] | | | | | | MEDICAL | | | | | | CENTER - | | | | | | LABORATORY | | + + + + + + | BUN | 7 (L) | 9 - 23 mg/dL | [facility] | | | | | | [facility] | | | | | | MEDICAL | | | | | | CENTER - | | | | | | LABORATORY | | + + + + + + | Creatinine | 0.83 | 0.55 - 1.02 | [facility] | | | | | mg/dL | [facility] | | | | | | MEDICAL | | | | | | CENTER - | | | | | | LABORATORY | | + + + + + + | eGFR, | >60Comment: GLOMERULAR | >=60 | [facility] | | | non- | FILTRATION | mL/min/1.73m2 | [facility] | | | [place] | RATE,ESTIMATED | | MEDICAL | | | | mL/min/1.85d3Uand than | | CENTER - | | | | 60 Chronic kidney | | LABORATORY | | | | disease,if found over a | | | | | | 3-month period.Less than | | | | | | 15 Kidney failure | | | | + + + + + + | eGFR, | >60Comment: GLOMERULAR | >=60 | [facility] | | | | FILTRATION | mL/min/1.73m2 | [facility] | | | [place] | RATE,ESTIMATED | | MEDICAL | | | | mL/min/1.21p2Kpdb than | | CENTER - | | [...] | | | | | mg/dL | [facility] | | | | | | MEDICAL | | | | | | CENTER - | | | | | | LABORATORY | | + + + + + + | Albumin | 4.1 | 3.2 - 4.8 g/dL | [facility] | | | | | | [facility] [...] [address] | [place] | [phone] | | [facility] | | [address] | | | - LABORATORY | | [...] Procedure Note | + + | Neal, [id number] - 08/04/2020 2:54 PM PDT CLINICAL INFORMATION: [...] + + | Performing | Address | City/State/Inscription House Health Centercode | Phone Number | | Organization | | | | + +---------+ + + | [facility] | | | | + +---------+ + + CT Chest Abdomen Pelvis w Contrast (07/31/2020 [...] Procedure Note | + + | Neal, [id number] - 07/31/2020 3:[address] CHEST [...] | | | | | | [employer] [place] [employer] | | | | | [...] + | [facility] | [address] | [place] | [phone] | | [facility] | | [address] | | | - LABORATORY | | [...] [address] | [place] | [phone] | | [facility] | | [address] | | | - LABORATORY | | [...] New method in | <100 pg/mL | [facility] | | | | use as of January 24 | | [facility] | | | | 2018. Check reference [...] + | [facility] | [address] | [place] | [phone] | | [facility] | | [address] | | | - LABORATORY | | [...] in | 12 - 53 U/L | [facility] | | | | use as of January 24, | | [facility] | | | | 2018. Check reference [...] + + | [facility] | [address] | [place] | [phone] | | [facility] | | [address] | | | - LABORATORY | | [...] | | | | GALDINO KRAUSE MD ([id number]) | | | | | | on [...] Procedure Note | + + | Neal, [id number] - 07/31/2020 2:04 PM PDT AP CHEST [...] +---------+--------+ | MEDICAID [place] | MEDICA | [id number] | 11/09/ | [phone] | | Medica | | | ID [place] | | 2018-P | 2 | | id | | | PLUS | | resent | | | | + +--------+ +--------+ +---------+--------+ | [facility] | IHS | [id number] | 11/08/ | | | Indemn | | SERVICE | YELLOW | | 2018-P | | | mac | | | RICHARDK | | resent | | | | [...] | Self | [birth year] | | [address] | | | al/Fam | | 1975 | [phone] | [place] [address] | | | rene | | | 9 (Home) | | + +--------+ +--------+ + + Advance Directives + + + + + | Type | Date Recorded | Patient | Explanation | | | | Dispatch Lead | | + + + + + | Power of | | | | | Oil Fire Specialist | | | | + + + + + | Advance | 07/31/2020 3:17 | | | | Directive | PM | | | + + + + +
--- OUTSIDE RECORDS SUMMARY | ~2020-09-03 | XMS | Encounter Summary ---
Demographics + + + | Address | [address] | | | [place] [address] | + + + | Home Phone [...] Organization | [facility] | | [...] Providers + +------+ + | Care Supervisor Graphite Name | Role | Phone | + +------+ + PCP | Unavailable | + +------+ + Encounter Details +--------+ + + + + | Date | Type | Department | Care Team | Description | +--------+ + + + + | 05/31/ | Hospital | [facility] | | | | 1991 | Encounter | [facility] | | | | | | [facility] [address] | | | | | | [place], | | | | | | [place] [address] | | | | | | [phone] | | | +--------+ + + + [...]
--- OUTSIDE RECORDS SUMMARY | ~2020-09-03 | XMS | Encounter Summary ---
Demographics + + + | Address | [address] | | | [place] [address] | + + + | Home Phone [...] Author | [facility] [employer] [facility] | + + + | Organization | [facility] [employer] [facility] [...] Providers + +------+ + | Care Grain Distributor Name | Role | Phone | [...] | | | [facility] for | [place], [place] | | | | | Health and Healing, | [address] | | | | | Building | [phone] | | | | | floor [place], [place] | | | | | | [address] | | | | | | [phone] | | | +--------+ + + + [...] Kiki Rosen PA - 12/24/2008 3:02 PM [employer] says to try again later. No [...]
--- OUTSIDE RECORDS SUMMARY | ~2020-09-03 | XMS | Encounter Summary ---
Demographics + + + | Address | [address] | | | [place] [address] | + + + | Home Phone [...] [facility] | + + + | Organization | [facility] [employer] [facility] | [...] Providers + +------+ + | Care Cooker Soda Name | Role | Phone | + [...] | Prescription | | 2012 | | [place]/Ophthalmol | MD Perry | | | | | [place] at [facility] [address] | | | | | | [address] [facility] | | | | | | Health and Healing, | | | | | | Building | | | | | | Floor [place], [place] | | | | | | [address] | | | | | | [phone] | | | +--------+ + + + [...] COURT [address] [place] [phone] documented in this encounter Plan of Treatment Not on filedocumented as of this encounter Visit Diagnoses Not on filedocumented in this encounter"
--- OUTSIDE RECORDS SUMMARY | ~2020-09-03 | XMS | Encounter Summary ---
Demographics + + + | Address | [address] | | | [place] [address] | + + + | Home Phone [...] [facility] [employer] [facility] | + + + | Organization | [facility] [employer] [facility] | + [...] Providers + +------+ + | Care Digital Sales Assistant Name | Role | Phone [...] | Headache | | 2005 | | [place]/Ophthalmol | MD Jordin | | | | | leon at [facility] [address] | | | | | | [address] [facility] | | | | | | Health and Healing, | | | | | | Building | | | | | | Floor [place], [place] | | | | | | [address] | | | | | | [phone] | | | +--------+ + + + [...] she could not find a ride to [place] for an exam. She lives 4 hours [...] understanding. BRYAN WILSON MD Ophthalmology Resident Physician [facility] documented in this en counter Plan of Treatment Not on filedocumented as of this encounter Visit Diagnoses Not on filedocumented in this encounter"
--- OUTSIDE RECORDS SUMMARY | ~2020-09-03 | XMS | Encounter Summary ---
Demographics + + + | Address | [address] | | | [place] [address] | + + + | Home Phone [...] Author | [facility] [employer] [facility] | + + + | Organization | [facility] [employer] [facility] [...] Providers + +------+ + | Care Supervisor Lime Name | Role | Phone | + [...] | Headache | | 2005 | | [place]/Ophthalmol | MD Jordin | | | | | leon at [facility] [address] | | | | | | [address] [facility] | | | | | | Health and Healing, | | | | | | Building | | | | | | Floor [place], [place] | | | | | | [address] | | | | | | [phone] | | | +--------+ + + + [...] she cannot find a ride to a [employer] augor tonight, and that she cannot make [...] Donohue. BRYAN WILSON MD Ophthalmology Resident Physician [facility] documented in this en counter Plan of Treatment Not on filedocumented as of this encounter Visit Diagnoses Not on filedocumented in this encounter
--- OUTSIDE RECORDS SUMMARY | ~2020-09-03 | XMS | Clinical Summary ---
Demographics + + + | Address | [address] | | | [place] [address] | + + + | Home Phone [...] Providers + +------+ + | Care Manager Rental Name | Role | Phone | + +------+ + | Dennis Maddox | PCP | | + +------+ + Source Comments [facility] is fully live on both [facility] and [facility]Patient[facility] include 234 beds at the [facility] Allergies + + [...] +--------+ | MEDICAID [place] | OHP | [id number] | | [phone] | [address] | [address] | | | PLUS | | [phone] | id | | | OPEN | | esent | | [place], [place] | | | | CARD | | | | [phone] | | + +--------+ +--------+ + +--------+ [...] | 1975 | [phone] | [place] [address] | | | rene | | | 9 (Home) | | + +--------+ +--------+ + + Advance Directives + + + + + | Type | Date Recorded | Patient | Explanation | | | | Mat Repairer | | + + + + + | Advance | | | | | Directives and | | | | | Living Will | | | | + + + + + | Power of | | | | | Associate Scientist | | | | + + + [...]
--- OUTSIDE RECORDS SUMMARY | ~2020-09-03 | XMS | Encounter Summary ---
Demographics + + + | Address | [address] | | | [place] [address] | + + + | Home Phone [...] Author | [facility] [employer] [facility] | + + + | Organization | [facility] [employer] [facility] | + + [...] Providers + +------+ + | Care Door To Door Salesperson Name | Role | Phone | + +------+ + | Brenden Benavides MD | PCP | | + +------+ + Encounter Details +--------+ + + + + | Date | Type | Department | Care Team | Description | +--------+ + + + + | 02/22/ | Telephone | [facility] | Hay Hughes MD 1925 | | | 2006 | | [place] | [place] | | | | | Oculoplastics at | [place], [place] | | | | | [address] | [address] | | | | | [address] | [phone] | | | | | [facility] | | | | | | [address] | | | | | | [place] [address] | | | | | | [phone] | | | +--------+ + + + [...] to run its course-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
--- OUTSIDE RECORDS SUMMARY | ~2020-09-03 | XMS | Encounter Summary ---
Demographics + + + | Address | [address] | | | [place] [address] | + + + | Home Phone [...] Author | [facility] [email or web address] [facility] | + + + | Organization | [facility] [employer] [facility] | [...] Providers + +------+ + | Care Document Processor Name | Role | Phone | + +------+ + | Brenden Benavides MD | PCP | | + +------+ + Encounter Details +--------+ + + + + | Date | Type | Department | Care Team | Description | +--------+ + + + + | 02/22/ | Telephone | [facility] | Brad Currie MD | | | 2006 | | [place] | | | | | | Neuro-Ophthalmology | | | | | | [address] [facility] | | | | | | Mailcode: PATTI | | | | | | [place] [address] | | | | | | [phone] | | | +--------+ + + + [...] infection at last visit. A tech from [employer] will be calling this patient. Sergio Alicia Neuro Assistant Community Manager for MD Julieta Nielson MD Jacqueline Holodak wrote: Sergio, Please call patient - she says she has a green discharge coming form her eye & some pain. Thanks, Taryn documented in th is encounter Plan of Treatment Not on filedocumented as of this encounter Visit Diagnoses Not on filedocumented in this encounter"
--- OUTSIDE RECORDS SUMMARY | ~2020-09-03 | XMS | Encounter Summary ---
Demographics + + + | Address | [address] | | | [place] [address] | + + + | Home Phone [...] | Organization | [facility] | | | and [place] [...] Providers + +------+ + | Care Video Camera Operator Name | Role | Phone | + +------+ + PCP | Unavailable | + +------+ + Encounter Details +--------+ + + + + | Date | Type | Department | Care Team | Description | +--------+ + + + + | 04/21/ | Hospital | [facility] | | | | 1995 | Encounter | [facility] EM[facility] | | | | | | CENTER [address] | | | | | | [place] | | | | | | [address] | | | | | | [phone] | | | +--------+ + + + [...]
--- OUTSIDE RECORDS SUMMARY | ~2020-09-03 | XMS | Encounter Summary ---
Demographics + + + | Address | [address] | | | [place] [address] | + + + | Home Phone [...] Organization | [facility] [employer] [...] Providers + +------+ + | Care Pharmacy Salesperson Name | Role | Phone | + +------+ + PCP | Unavailable | + +------+ + Encounter Details +--------+ + + + + | Date | Type | Department | Care Team | Description | +--------+ + + + + | 05/15/ | Hospital | [facility] | | | | 1991 | Encounter | MED CTR XRAY [address] | | | | | [place] | | | | | | [place] [address] | | | | | | [phone] | | | +--------+ + + + [...]
--- OUTSIDE RECORDS SUMMARY | ~2020-09-03 | XMS | Encounter Summary ---
Demographics + + + | Address | [address] | | | [place] [address] | + + + | Home Phone [...] | Author | [facility] [employer] [facility] | + + + | Organization | [facility] [employer] [facility] | + + [...] Providers + +------+ + | Care Guard Entrance Registrar Name | Role | Phone | [...] | | | Ave [facility] for | [place], [place] | | | | | Health and Healing, | [address] | | | | | [facility] | [phone] | | | | | floor [place], [place] | | | | | | [address] | | | | | | [phone] | | | +--------+ + + + [...]
[2020-09-03] MEDS ORDERED: ROBAXIN-750750 MG PO (16:16)
== END 2020-09-03 17:23 | disposition home or self-care (01) ==
LOC: ED 16:03
DX: R07.89 Other chest pain (principal); E11.9 Type 2 diabetes mellitus without complications; I10 Essential (primary) hypertension; E66.9 Obesity, unspecified; J44.9 Chronic obstructive pulmonary disease, unspecified; F17.200 Nicotine dependence, unspecified, uncomplicated; Z88.8 Allergy status to other drugs, medicaments and biological substances; Z88.1 Allergy status to other antibiotic agents; Z88.5 Allergy status to narcotic agent; Z88.0 Allergy status to penicillin; Z79.899 Other long term (current) drug therapy; Z79.84 Long term (current) use of oral hypoglycemic drugs
CPT/HCPCS: 71046; 96372; 99284-25; J1885

== ENCOUNTER 2020-09-26 17:38 | Emergency (ER) | payer OTHER ==
[~2020-09-26] VITALS: Ht 165.1 cm; Wt 104.5 kg
[~2020-09-26 17:38] MED LIST changes: +ROBAXIN-750750 MG PO
== END 2020-09-26 20:50 | disposition home or self-care (01) ==
LOC: ED 17:38
DX: T42.4X1A Poisoning by benzodiazepines, accidental (unintentional), initial encounter (principal); T42.8X1A Poisoning by antiparkinsonism drugs and other central muscle-tone depressants, accidental (unintentional), initial encounter; T50.911A Poisoning by multiple unspecified drugs, medicaments and biological substances, accidental (unintentional), initial encounter; E11.9 Type 2 diabetes mellitus without complications; I10 Essential (primary) hypertension; E66.9 Obesity, unspecified; J44.9 Chronic obstructive pulmonary disease, unspecified; Z88.1 Allergy status to other antibiotic agents; Z88.8 Allergy status to other drugs, medicaments and biological substances; Z88.5 Allergy status to narcotic agent; Z88.0 Allergy status to penicillin; Z79.899 Other long term (current) drug therapy; Z79.84 Long term (current) use of oral hypoglycemic drugs
CPT/HCPCS: 71045; 80053; 80176; 84703; 85025; 96360; 99285-25; G0480; J7030